=== PATIENT | female | born 1955 | race Caucasian/White ===

== ENCOUNTER 2024-02-02 16:51 | Emergency (ER) | payer MEDICARE, OTHER, SELFPAY ==
[2024-02-02] VITALS (12 sets, daily range): BP systolic 98–159; BP diastolic 68–134; PULSE 81–107; TEMP 36.7; O2SAT 96–100; BMI 39.9
--- NOTE | 2024-02-02 16:56 | ECG_ITS ---
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
--- NOTE | 2024-02-02 17:06 | ED_ITS ---
HPI HPI - General Adult General Chief complaint: Dizziness Stated complaint: Neck Pain with Dizziness Time Seen by Provider: 02/02/24 16:53 Source: patient Mode of arrival: ambulance History of Present Illness HPI narrative: Ed is a 68-year-old female presents to the ER with concerns of head injury. Patient reports that she is taking Coumadin with a history of A-fib, MAR Shows only daily aspirin. Patient had a episode of sepsis Preceding her stay at [facility] in [place] for rehab. Patient currently a transfer via [facility] states yesterday she was being transferred back into her bed when they struck he r head on the wooden headboard. Patient declined Tylenol for pain. States she has not felt right since with headache, dizziness described as room spinning when she looks to the left. She denies any recent illness. Patient notes that her neck is also sore. She denies any chest pain or shortness of breath. She is alert and oriented to person place and time and easily recognizes her who arrived at the bedside. Patient appears nontoxic in no acute distress. Has a Dasilva catheter and colostomy bag. she has no urinary complaints. Location: Reports head Radiation: Reports neck Severity: moderate Quality: Reports aching and dull; Denies burning Pain Consistency: Reports constant Relieving factors: Reports none Exacerbating factors: Reports none Treatments prior to arrival: Reports none Related Data Home Medications ?Medication ?Instructions ?Recorded ?Confirmed acetaminophen 500 mg capsule 1,000 mg PO Q6H PRN fever or pain 02/02/24 02/02/24 ascorbic acid (vitamin C) 500 mg 500 mg PO DAILY 02/02/24 02/02/24 chewable tablet (Acerola C) aspirin 81 mg tablet,delayed 81 mg PO DAILY 02/02/24 02/02/24 release (Adult Aspirin Regimen) atorvastatin 40 mg tablet 40 mg PO DAILY 02/02/24 02/02/24 bumetanide 2 mg tablet 2 mg PO DAILY 02/02/24 02/02/24 diltiazem HCl 180 mg 180 mg PO DAILY 02/02/24 02/02/24 capsule,extended release 24 hr (Cardizem CD) doxycycline hyclate 100 mg capsule 100 mg PO BID 02/02/24 02/02/24 ergocalciferol (vitamin D2) 1,250 50,000 unit PO DAILY 02/02/24 02/02/24 mcg (50,000 unit) capsule ferrous sulfate 325 mg (65 mg mg 02/02/24 iron) tablet (FeroSul) insulin aspart U-100 100 unit/mL 1 sliding scale dose subcut 02/02/24 02/02/24 (3 mL) subcutaneous pen (Novolog USEASDIRECTD FlexPen U-100 Insulin aspart) insulin glargine 100 unit/mL (3 10 unit subcut BID 02/02/24 02/02/24 mL) subcutaneous pen magnesium 200 mg tablet 400 mg PO DAILY 02/02/24 02/02/24 metoprolol tartrate 100 mg tablet 100 mg PO DAILY 02/02/24 02/02/24 (Lopressor) midodrine 5 mg tablet 5 mg PO TID 02/02/24 02/02/24 multivitamin (Daily Multi-Vitamin 1 tab PO DAILY 02/02/24 02/02/24 tablet) ondansetron HCl 4 mg tablet 4 mg PO Q6H PRN nausea and vomiting 02/02/24 02/02/24 oxycodone 5 mg tablet 5 mg PO Q6H PRN pain 02/02/24 02/02/24 pantoprazole 20 mg tablet,delayed 20 mg PO DAILY 02/02/24 02/02/24 release potassium chloride 20 mEq oral 20 meq PO DAILY 02/02/24 02/02/24 packet (Klor-Con) sertraline 50 mg tablet (Zoloft) 50 mg PO DAILY 02/02/24 02/02/24 tamsulosin 0.4 mg capsule (Flomax) 0.4 mg PO DAILY 02/02/24 02/02/24 zinc sulfate 50 mg zinc (220 mg) 50 mg PO DAILY 02/02/24 02/02/24 capsule Allergies Allergy/AdvReac Type Severity Reaction Status Date / Time oats AdvReac Unknown Verified 02/02/24 16:53 Opioid HPI Opioid Management Most Recent Opioid Data: No Data to Display Review of Systems ROS Constitutional Denies: fever or chills Eyes Denies: change in vision Ears, nose, mouth, and throat Reports: neck pain; Denies: throat pain, throat swelling, difficulty swallowing or hoarseness Cardiovascular Reports: edema and swelling of feet/ankles; Denies: chest pain or palpitations Respiratory Denies: shortness of breath or cough Gastrointestinal Reports: nausea; Denies: abdominal pain or vomiting Genitourinary Reports: other (+ dasilva catheter) Musculoskeletal Reports: neck pain and extremity swelling (4 + pitting edema, no blister or weeping); Denies: back pain Neurological Reports: headache; Denies: numbness in extremities, weakness in extremities, behavioral changes or slurred speech Exam Narrative Exam Narrative: Nurses notes and vital signs reviewed and patient is not hypoxic. General: The patient appears well and in no apparent distress. Patient is resting comfortably on cart. Skin: Warm, dry, no pallor noted.Remote skin bruises bilateral forearms. Head: Normocephalic, atraumatic No visible signs of trauma or bruising. Neck: Supple, trachea mid-line, no tenderness Anterior neck, no lymphadenopathy, Mild paravertebral cervical soreness on palpation, no midline bony tenderness. Eye: Pupils are equal, round and reactive to light, EOMI, No vertical nystagmus Mild subconjunctival pallor. Ears, Nose, Mouth, and Throat: TM are clear, normal light reflex, oral mucosa is moist, no posterior oropharynx erythema or hypertrophy, uvula is mid-line Cardiovascular: Regular Rate and Rhythm Respiratory: Patient is in no distress, no accessory muscle use, lungs are clear to auscultation, no wheezing, rales or rhonchi. Chest Wall: no tenderness Back: non-tender, no CVA tenderness, Known decubitus ulcer of the sacral region , not examined. Musculoskeletal: normal ROM, no tenderness, Chronic appearing 4+ edema lower legs. GI: Normal bowel sounds, no tenderness to palpation, no masses appreciated. Colostomy bag with good output brown stool noted. No rebound, guarding, or rigidity noted. Neurological: A&O x4No focal neurological deficit, patient unable to ambulate which is why she is at skilled facility, she has good coordination bilateral hands equal gluer and slicer hand strength with assisting on sitting forward.For examination. Psychiatric: Cooperative Constitutional Vital Signs, click to edit/add: Last Vital Signs Temp 98.1 F 02/02/24 16:53 Pulse 92 H 02/02/24 17:38 Resp 18 02/02/24 17:00 BP 107/77 02/02/24 17:00 Pulse Ox 98 02/02/24 17:00 Course Vital Signs Vital signs: Vital Signs Temperature 98.1 F 02/02/24 16:53 Pulse Rate 90 02/02/24 16:53 Respiratory Rate 22 H 02/02/24 16:53 Blood Pressure 103/74 02/02/24 16:53 Pulse Oximetry 100 02/02/24 16:53 Temperature 98.1 F 02/02/24 16:53 Pulse Rate 92 H 02/02/24 17:38 Respiratory Rate 18 02/02/24 17:00 Blood Pressure 107/77 02/02/24 17:00 Pulse Oximetry 98 02/02/24 17:00 Medical Decision Making MDM Narrative Medical decision making narrative: Patient reports blood thinner use, states significant head injury yesterday being transferred from [facility] to her bed striking her head on a wooden headboard. No loss of consciousness but patient states she has not felt right since. Mild nausea, Dizziness that comes and goes. Patient ate lunch today and chips for snack.Dasilva catheter draining clear yellow urine, she is agreeable to CT head and cervical spine given complaints. Cervical spine studies without evidence of fracture, CT of the head without evidence of acute intracranial process, patient noted to have nodule on her parotid and the report copies will be sent with her back to the shelter for further evaluation by PCP. Her laboratory studies appear baseline as I requested records from the shelter facility compared to January 28 and January 21. The patient appears in no distress, and may be having slight postconcussive symptoms.She will need to continue her rehab treatments at the shelter facility. pt given dose of valium for dizziness and muscle spasm in neck, recommend house physician decide if she needs ongoing rx. The patient is to followup with primary care physician in next 1-3 days or to return to the emergency department should any of the signs or symptoms worsen or new symptoms develop. Patient had questions answered. The patient agrees with the following Diagnosis and Treatment plan and the patient will be discharged back to [facility] Medical Records Medical records reviewed: Yes I reviewed the patient's medical records Medical records narrative: Reviewed laboratory studies from 10/23 noting a hemoglobin of 9.1, labs from 01/21 hemoglobin of 8.2. Her platelets have fluctuated between 99 and 129. Creatinine 1.5. Lab Data Lab results reviewed: Yes I reviewed the patient's lab results Labs: Lab Results 02/02/24 Range/Units 17:23 WBC 11.4 H (4.0-11.0) 10^3/uL RBC 2.94 L (4.20-5.40) 10^6/uL Hgb 8.7 L (12.0-16.0) g/dL Hct 27.0 L (36.0-48.0) % MCV 91.8 (81.0-99.0) fL MCH 29.6 (26.7-34.0) pg MCHC 32.2 (29.9-35.2) g/dL RDW 15.4 H (11.0-15.0) % Plt Count 162 (150-450) 10^3/uL MPV 11.1 (9.5-13.5) fL Neut % (Auto) 69.7 (43.0-75.0) % Lymph % (Auto) 19.6 L (20.5-60.0) % Keith % (Auto) 8.2 (1.7-12.0) % Eos % (Auto) 1.6 (0.9-7.0) % Baso % (Auto) 0.4 (0.2-2.0) % Neut # (Auto) 7.9 H (1.4-6.5) 10^3/uL Lymph # (Auto) 2.2 (1.2-3.8) 10^3/uL Keith # (Auto) 0.9 H (0.3-0.8) 10^3/uL Eos # (Auto) 0.2 (0.0-0.7) 10^3/uL Baso # (Auto) 0.0 (0.0-0.1) 10^3/uL Abs Immat Gran (auto) 0.06 H (0.00-0.03) 10^3/uL Imm/Tot Granulo (auto) 0.5 (0.0-0.5) % PT 11.5 (9.0-11.6) sec INR 1.09 APTT 24.3 (22.3-36.2) sec Sodium 139 (136-145) mmol/L Potassium 4.5 (3.5-5.1) mmol/L Chloride 102 (98-107) mmol/L Carbon Dioxide 29.3 (21.0-32.0) mmol/L Anion Gap 12.2 BUN 18.0 (7.0-18.0) mg/dL Creatinine 1.53 H (0.55-1.02) mg/dL Est GFR ( Amer) 41 L (>=60) Est GFR (Non-Af Amer) 34 L (>=60) BUN/Creatinine Ratio 11.8 Glucose 91 (74-106) mg/dL Calcium 8.3 L (8.5-10.1) mg/dL Total Bilirubin 0.5 (0.2-1.0) mg/dL AST 28 (15-37) U/L ALT 14 (14-59) U/L Alkaline Phosphatase 146 H (46-116) U/L Troponin I High Sens 20.2 (4.0-51.3) pg/mL Total Protein 6.2 L (6.4-8.2) g/dL Albumin 2.1 L (3.4-5.0) g/dL Globulin 4.1 g/dL Albumin/Globulin Ratio 0.[address] scan - head: Radiologist's impression: ITS Impressions Cervical Spine CT 02/02/24 17:06 IMPRESSION: No acute traumatic findings of the cervical spine. Bilateral parotid nodules, largest on the left measuring 1.5 cm. Clinical follow-up with consideration for ultrasound recommended. Electronically authenticated by: ROMY DAVILA Date: 02/02/2024 18:[address] 02/02/24 17:06 IMPRESSION: 1. Chronic small vessel ischemic change. 2. Otherwise, no CT evidence for acute pathology. 3. If patient continues to have symptoms or if there remains any further clinical concern, MRI may help better delineate. Electronically authenticated by: LOUISA CHAU Date: 02/02/2024 18:23 ECG Data Attestation: I personally reviewed and interpreted this ECG as follows: Interpretation: EKG interpretation: Emergency Department physician interpretation,Atrial fibrillation, 93 bpm, no ectopy, no ST segment elevation, normal axis. Discharge Plan Discharge Stand Alone Forms: Portal Instructions Chief Complaint: Dizziness Clinical Impression: Closed head injury, Post concussion syndrome, Neck pain Patient Disposition: Home, Self-Care Time of Disposition Decision: 18:34 Condition: Good Mode of Transportation: EMS Prescriptions / Home Meds: No Action acetaminophen 500 mg capsule 1,000 mg PO Q6H PRN (Reason: fever or pain) ascorbic acid (vitamin C) [Acerola C] 500 mg tablet,chewable 500 mg PO DAILY aspirin [Adult Aspirin Regimen] 81 mg tablet,delayed release (DR/EC) 81 mg PO DAILY atorvastatin 40 mg tablet 40 mg PO DAILY bumetanide 2 mg tablet 2 mg PO DAILY diltiazem HCl [Cardizem CD] 180 mg capsule,extended release 24hr 180 mg PO DAILY doxycycline hyclate 100 mg capsule 100 mg PO BID ergocalciferol (vitamin D2) 1,250 mcg (50,000 unit) capsule 50,000 unit PO DAILY ferrous sulfate [FeroSul] 325 mg (65 mg iron) tablet insulin glargine 100 unit/mL (3 mL) insulin pen 10 unit subcut BID magnesium 200 mg tablet 400 mg PO DAILY metoprolol tartrate [Lopressor] 100 mg tablet 100 mg PO DAILY midodrine 5 mg tablet 5 mg PO TID Rx Instructions: do not give last dose of day after 6PM or within 4 hrs of bedtime multivitamin [Daily Multi-Vitamin] Tablet 1 tab PO DAILY insulin aspart U-100 [Novolog FlexPen U-100 Insulin] 100 unit/mL (3 mL) insulin pen 1 sliding scale dose subcut USEASDIRECTD oxycodone 5 mg tablet 5 mg PO Q6H PRN (Reason: pain) Patient Comments: 1 tablet for pain 4-04/08 2 tablets for pain 8-10 pantoprazole 20 mg tablet,delayed release (DR/EC) 20 mg PO DAILY potassium chloride [Klor-Con] 20 mEq packet 20 meq PO DAILY sertraline [Zoloft] 50 mg tablet 50 mg PO DAILY tamsulosin [Flomax] 0.4 mg capsule 0.4 mg PO DAILY zinc sulfate 50 mg zinc (220 mg) capsule 50 mg PO DAILY ondansetron HCl 4 mg tablet 4 mg PO Q6H PRN (Reason: nausea and vomiting) Print Language: Ukrainian Instructions: Head Injury (ED), Post Concussion Syndrome (ED), Neck Pain (ED) Additional Instructions: Please follow up with your house physician at [facility]. Referrals: Physician,Non-Staff, MD [Primary Care Provider] - 1 week
--- NOTE | 2024-02-02 17:06 | CT_ITS ---
The [address] [address] Patient Name: HARRIS CASTREJON MRN: [id number] date: 1955 Sex: F Assigned Patient Location: ER Current Patient Location: .[facility] Accession/Order Number: [id number] Exam Date: 02/02/2024 17:27 Report Date: 02/02/2024 18:23 At the request of: PUMA MOORE Procedure: CT head/brain wo con NONCONTRAST CT SCAN OF THE HEAD HISTORY: Headache. TECHNIQUE: Multiple axial images are taken from the level the vertex down to the base of the skull without the use of IV contrast. Images were then reconstructed in the sagittal and coronal planes. This exam was performed according to our departmental dose-optimization program which includes use of Automated Exposure Control, adjustment of the mA and/or kV according to patient size and/or use of iterative reconstruction technique. COMPARISON: None. FINDINGS: Brain Parenchyma: There is global, diffuse atrophy with periventricular decreased white matter attenuation. No intracranial mass. No intracranial hemorrhage. Posterior fossa: Normal. Midline shift: None Extra-axial fluid collection: None Ventricles: Normal. Mastoid air cells: Normal. Sinuses: Normal. Cranium: No depressed skull fracture. Soft tissues: Normal. Orbits: Normal. CT/CT head/brain wo con IMPRESSION: 1. Chronic small vessel ischemic change. 2. Otherwise, no CT evidence for acute pathology. 3. If patient continues to have symptoms or if there remains any further clinical concern, MRI may help better delineate. Electronically authenticated by: LOUISA CHAU Date: 02/02/2024 18:23
--- NOTE | 2024-02-02 17:06 | CT_ITS ---
The [address] [address] Patient Name: HARRIS CASTREJON MRN: [id number] date: 1955 Sex: F Assigned Patient Location: ER Current Patient Location: ED.[facility] Accession/Order Number: [id number] Exam Date: 02/02/2024 17:27 Report Date: 02/02/2024 18:23 At the request of: PUMA MOORE Procedure: CT cervical spine wo con EXAM: CT cervical spine wo con HISTORY: neck pain COMPARISON: None. TECHNIQUE: CT cervical spine without contrast. Multiplanar reformats obtained. The current study utilizes one or more of the following dose-reduction techniques: automated exposure control, iterative reconstruction, and/or manual adjustment of tube current and voltage for size. FINDINGS: Artifact limits evaluation of the mid to lower cervical spine. Age expected degenerative changes. No evidence of acute fracture or traumatic malalignment. No prevertebral edema. Spinal canal grossly patent. Bilateral parotid nodules, largest in the left measuring 1.[address]/CT cervical spine wo con IMPRESSION: No acute traumatic findings of the cervical spine. Bilateral parotid nodules, largest on the left measuring 1.5 cm. Clinical follow-up with consideration for ultrasound recommended. Electronically authenticated by: ROMY DAVILA Date: 02/02/2024 18:23
--- NOTE | 2024-02-02 17:13 | PC.NURSE ---
Patient reports during transfer with [facility] the top of her head was hit on headboard of bed. Complains of neck pain and dizziness.
[2024-02-02] MEDS: ACETAMINOPHEN 500 MG TABLET 1000 MG PO (17:18)
[2024-02-02] MEDS: MECLIZINE HCL 12.5 MG TABLET 25 MG PO (17:18)
[2024-02-02] MEDS: ONDANSETRON 4 MG RAPDIS TABLET SL (17:19)
[2024-02-02 17:29] LABS: Basophils Percent Auto 0.4 % (0.2-2.0); Eosinophils Absolute Auto 0.2 10^3/uL (0.0-0.7); Eosinophils Percent Auto 1.6 % (0.9-7.0); Hemoglobin 8.7 g/dL (12.0-16.0); Immature Granulocytes Abs Auto 0.06 10^3/uL (0.00-0.03); Immature Granulocytes Pct Auto 0.5 % (0.0-0.5); Lymphocytes Absolute Auto 2.2 10^3/uL (1.2-3.8); Lymphocytes Percent Auto 19.6 % (20.5-60.0); Mean Corpuscular HGB Conc 32.2 g/dL (29.9-35.2); Mean Corpuscular Hemoglobin 29.6 pg (26.7-34.0); Mean Corpuscular Volume 91.8 fL (81.0-99.0); Mean Platelet Volume 11.1 fL (9.5-13.5); Monocytes Absolute Auto 0.9 10^3/uL (0.3-0.8); Monocytes Percent Auto 8.2 % (1.7-12.0); Neutrophils Absolute Auto 7.9 10^3/uL (1.4-6.5); Neutrophils Percent Auto 69.7 % (43.0-75.0); Platelet Count 162 10^3/uL (150-450); Red Blood Count 2.94 10^6/uL (4.20-5.40); Red Cell Distribution Width 15.4 % (11.0-15.0); White Blood Count 11.4 10^3/uL (4.0-11.0)
[2024-02-02 17:43] LABS: Alanine Aminotransferase 14 U/L (14-59); Albumin Globulin Ratio 0.5; Albumin Level 2.1 g/dL (3.4-5.0); Alkaline Phosphatase 146 U/L (46-116); Anion Gap 12.2; Aspartate Amino Transferase 28 U/L (15-37); BUN Creatinine Ratio 11.8; Bilirubin Total 0.5 mg/dL (0.2-1.0); Calcium 8.3 mg/dL (8.5-10.1); Carbon Dioxide 29.3 mmol/L (21.0-32.0); Chloride 102 mmol/L (98-107); Estimated GFR (African America 41 (>=60); Estimated GFR (Non-African Ame 34 (>=60); Globulin 4.1 g/dL; Glucose 91 mg/dL (74-106); Potassium 4.5 mmol/L (3.5-5.1); Sodium 139 mmol/L (136-145); Total Protein 6.2 g/dL (6.4-8.2)
[2024-02-02 17:44] LABS: INR 1.09; Partial Thromboplastin Time 24.3 sec (22.3-36.2); Prothrombin Time 11.5 sec (9.0-11.6)
[2024-02-02 17:46] LABS: Troponin I High Sensitivity 20.2 pg/mL (4.0-51.3)
[2024-02-02] MEDS: DIAZEPAM 5 MG TABLET PO (19:07)
--- NOTE | 2024-02-02 20:23 | PC.NURSE ---
Report called to nurse Lowry at [facility], facility aware of ETA for transport.
== END 2024-02-02 21:40 | disposition home or self-care (01) ==
PROVIDERS: Personal Emergency Response Attendant; Emergency Provider Emergency Medicine
DX: S09.8XXA Other specified injuries of head, initial encounter (principal); M54.2 Cervicalgia; F07.81 Postconcussional syndrome; W22.8XXA Striking against or struck by other objects, initial encounter; I48.91 Unspecified atrial fibrillation; Z93.3 Colostomy status; Z96.0 Presence of urogenital implants; Z79.899 Other long term (current) drug therapy; Z79.82 Long term (current) use of aspirin; Z79.4 Long term (current) use of insulin; Z79.01 Long term (current) use of anticoagulants
CPT/HCPCS: 36415; 70450; 72125; 80053; 84484; 85025; 85610; 85730; 93005; 99285

== ENCOUNTER 2024-02-04 07:02 | Inpatient (IN) | payer MEDICARE, OTHER, SELFPAY ==
[2024-02-04] VITALS (20 sets, daily range): BP systolic 100–124; BP diastolic 53–85; PULSE 103–142; TEMP 36.6–36.8; O2SAT 96–100; BMI 39.9; BMI 38.9
[2024-02-04] MEDS: LIDOCAINE 2% JELLY 10 ML UR (07:24)
[2024-02-04 08:04] LABS: Alanine Aminotransferase 15 U/L (14-59); Albumin Globulin Ratio 0.5; Albumin Level 2.1 g/dL (3.4-5.0); Alkaline Phosphatase 167 U/L (46-116); Anion Gap 12.7; Aspartate Amino Transferase 20 U/L (15-37); BUN Creatinine Ratio 11.8; Bilirubin Total 0.5 mg/dL (0.2-1.0); Calcium 8.1 mg/dL (8.5-10.1); Chloride 104 mmol/L (98-107); Estimated GFR (African America 39 (>=60); Estimated GFR (Non-African Ame 32 (>=60); Glucose 95 mg/dL (74-106); Potassium 3.7 mmol/L (3.5-5.1); Sodium 141 mmol/L (136-145); Total Protein 6.1 g/dL (6.4-8.2)
[2024-02-04 08:07] LABS: Basophils Absolute Auto 0.1 10^3/uL (0.0-0.1); Basophils Percent Auto 0.5 % (0.2-2.0); Eosinophils Absolute Auto 0.2 10^3/uL (0.0-0.7); Eosinophils Percent Auto 2.2 % (0.9-7.0); Hematocrit 27.6 % (36.0-48.0); Hemoglobin 8.5 g/dL (12.0-16.0); Immature Granulocytes Abs Auto 0.03 10^3/uL (0.00-0.03); Immature Granulocytes Pct Auto 0.3 % (0.0-0.5); Lymphocytes Absolute Auto 2.1 10^3/uL (1.2-3.8); Lymphocytes Percent Auto 19.8 % (20.5-60.0); Mean Corpuscular HGB Conc 30.8 g/dL (29.9-35.2); Mean Corpuscular Volume 94.2 fL (81.0-99.0); Mean Platelet Volume 10.6 fL (9.5-13.5); Monocytes Absolute Auto 1.1 10^3/uL (0.3-0.8); Monocytes Percent Auto 10.4 % (1.7-12.0); Neutrophils Absolute Auto 6.9 10^3/uL (1.4-6.5); Neutrophils Percent Auto 66.8 % (43.0-75.0); Platelet Count 144 10^3/uL (150-450); Red Blood Count 2.93 10^6/uL (4.20-5.40); Red Cell Distribution Width 15.6 % (11.0-15.0); White Blood Count 10.4 10^3/uL (4.0-11.0)
[2024-02-04 08:13] LABS: INR 1.06; Prothrombin Time 11.2 sec (9.0-11.6)
--- NOTE | 2024-02-04 08:34 | ED.FEMALEGU1 ---
HPI - Female Genitourinary General Chief complaint: Urogenital-Female Stated complaint: POSSIBLE VAGINAL/RECTAL BLEEDING Time Seen by Provider: 02/04/24 07:08 Source: patient Mode of arrival: ambulance Limitations: no limitations History of Present Illness HPI Narrative: The patient is [facility] with a history of decubital ulcer and colostomy , patient also have a history of hypertension diabetes , patient have history of taking Coumadin but she stopped taking it a while ago from the history it seems that the patient have a GI bleed history, the patient is coming to the ER after they noticed there is a bleeding in her perineal area with a trying to place the catheter in the [facility] facility, it was noted the patient have no abdominal pain nausea vomiting or any other complaints, she is supposed to have a Puga catheter chronically because of ambulation difficulty in addition to the sacral ulcer. The patient denies any dizziness abdominal pain nausea vomiting Related Data Home Medications ?Medication ?Instructions ?Recorded ?Confirmed acetaminophen 500 mg capsule 1,000 mg PO Q6H PRN fever or pain 02/02/24 02/04/24 ascorbic acid (vitamin C) 500 mg 500 mg PO DAILY 02/02/24 02/04/24 chewable tablet (Acerola C) aspirin 81 mg tablet,delayed 81 mg PO DAILY 02/02/24 02/04/24 release (Adult Aspirin Regimen) atorvastatin 40 mg tablet 40 mg PO DAILY 02/02/24 02/04/24 bumetanide 2 mg tablet 2 mg PO DAILY 02/02/24 02/04/24 diltiazem HCl 180 mg 180 mg PO DAILY 02/02/24 02/04/24 capsule,extended release 24 hr (Cardizem CD) doxycycline hyclate 100 mg capsule 100 mg PO BID 02/02/24 02/04/24 ergocalciferol (vitamin D2) 1,250 50,000 unit PO DAILY 02/02/24 02/04/24 mcg (50,000 unit) capsule ferrous sulfate 325 mg (65 mg 325 mg PO DAILY 02/02/24 02/04/24 iron) tablet (FeroSul) insulin aspart U-100 100 unit/mL 1 sliding scale dose subcut 02/02/24 02/04/24 (3 mL) subcutaneous pen (Novolog USEASDIRECTD FlexPen U-100 Insulin aspart) insulin glargine 100 unit/mL (3 10 unit subcut BID 02/02/24 02/04/24 mL) subcutaneous pen magnesium 200 mg tablet 400 mg PO DAILY 02/02/24 02/04/24 metoprolol tartrate 100 mg tablet 100 mg PO DAILY 02/02/24 02/04/24 (Lopressor) midodrine 5 mg tablet 5 mg PO TID 02/02/24 02/04/24 multivitamin (Daily Multi-Vitamin 1 tab PO DAILY 02/02/24 02/04/24 tablet) ondansetron HCl 4 mg tablet 4 mg PO Q6H PRN nausea and vomiting 02/02/24 02/04/24 oxycodone 5 mg tablet 5 mg PO Q6H PRN pain 02/02/24 02/04/24 pantoprazole 20 mg tablet,delayed 20 mg PO DAILY 02/02/24 02/04/24 release potassium chloride 20 mEq oral 20 meq PO DAILY 02/02/24 02/04/24 packet (Klor-Con) sertraline 50 mg tablet (Zoloft) 50 mg PO DAILY 02/02/24 02/04/24 tamsulosin 0.4 mg capsule (Flomax) 0.4 mg PO DAILY 02/02/24 02/04/24 zinc sulfate 50 mg zinc (220 mg) 50 mg PO DAILY 02/02/24 02/04/24 capsule Allergies Allergy/AdvReac Type Severity Reaction Status Date / Time oats AdvReac Unknown Verified 02/02/24 16:53 Review of Systems ROS Status of ROS 10 or more systems reviewed and unremarkable except as noted in history and below Exam Narrative Exam Narrative: Nurses notes and vital signs reviewed and patient is not hypoxic. General: Well-appearing and in no apparent distress. Skin: Warm, dry, no pallor noted. No rash. Head: Normocephalic, atraumatic. Neck: Supple, non-tender. Eye: Pupils are equal, round and EOMI. No scleral icterus. Ears, Nose, Mouth, and Throat: TM are clear, no nasal mucosal hypertrophy. Oral mucosa is moist, no posterior oropharynx erythema, uvula is mid-line Cardiovascular: Regular Rate and Rhythm without murmur, gallop or rub. Respiratory: No accessory muscle use or respiratory distress. Lungs are clear to auscultation, no wheezing, rales or rhonchi Chest Wall: no tenderness Back: No midline thoracic or lumbar vertebral tenderness. No CVA tenderness Musculoskeletal: normal ROM, no calf or popliteal tenderness, no lower extremity edema/swelling GI: Abdomen is soft, non-distended. Normal bowel sounds. The patient have no tenderness upon palpation and she does have a colostomy bag in the left lower quadrant of the abdomen showing no abnormalities of infection or any tenderness surrounding the colostomy area. Vaginal examination shows that the patient have 2 spots of bleeding just at the periurethral area, but the patient also had a bleeding down toward the rectal area that was noticed Neurological: A&O x4. No cranial nerve dysfunction observed. No truncal ataxia. Moves all extremities. Sensation intact. Psychiatric: Cooperative and interactive. Normal mood and affect. Sacral area evaluation showed that the patient have a large ulcer mostly stage 3-4 and it is almost around 14 cm x 12 Constitutional Vital Signs, click to edit/add: Last Vital Signs Temp 98.1 F 02/04/24 07:07 Pulse 103 H 02/04/24 07:07 Resp 16 02/04/24 07:07 BP 105/63 02/04/24 10:59 Pulse Ox 100 02/04/24 11:00 O2 Del Method Room Air 02/04/24 08:01 Course Vital Signs Vital signs: Vital Signs Temperature 98.1 F 02/04/24 07:07 Pulse Rate 103 H 02/04/24 07:07 Respiratory Rate 16 02/04/24 07:07 Blood Pressure 108/69 02/04/24 07:07 Pulse Oximetry 100 02/04/24 07:07 Oxygen Delivery Method Room Air 02/04/24 07:07 Temperature 98.1 F 02/04/24 07:07 Pulse Rate 103 H 02/04/24 07:07 Respiratory Rate 16 02/04/24 07:07 Blood Pressure 105/63 02/04/24 10:59 Pulse Oximetry 100 02/04/24 11:00 Oxygen Delivery Method Room Air 02/04/24 08:01 MDM - Female Genitourinary MDM Narrative Medical decision making narrative: After cleaning the area thoroughly and placing the catheter monitoring the patient after an hour the patient had still rectal bleeding no more bleeding from the periurethral area. 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 This mild bleeding from the rectal area is mostly secondary to the rectal mass It is noted that the patient is not taking any Coumadin or any anticoagulation The workup from [facility] discussed with who presented at the bedside the patient need further evaluation and staging specially that the last evaluation was in December 27 and she has not seen any oncologist since then. Will obtain CAT scan without contrast and the patient case was discussed with Dr. Cameron . Patient will be admitted for further evaluation Lab Data Labs: Lab Results 02/04/24 Range/Units 07:36 WBC 10.4 (4.0-11.0) 10^3/uL RBC 2.93 L (4.20-5.40) 10^6/uL Hgb 8.5 L (12.0-16.0) g/dL Hct 27.6 L (36.0-48.0) % MCV 94.2 (81.0-99.0) fL MCH 29.0 (26.7-34.0) pg MCHC 30.8 (29.9-35.2) g/dL RDW 15.6 H (11.0-15.0) % Plt Count 144 L (150-450) 10^3/uL MPV 10.6 (9.5-13.5) fL Neut % (Auto) 66.8 (43.0-75.0) % Lymph % (Auto) 19.8 L (20.5-60.0) % [place] % (Auto) 10.4 (1.7-12.0) % Eos % (Auto) 2.2 (0.9-7.0) % Baso % (Auto) 0.5 (0.2-2.0) % Neut # (Auto) 6.9 H (1.4-6.5) 10^3/uL Lymph # (Auto) 2.1 (1.2-3.8) 10^3/uL [place] # (Auto) 1.1 H (0.3-0.8) 10^3/uL Eos # (Auto) 0.2 (0.0-0.7) 10^3/uL Baso # (Auto) 0.1 (0.0-0.1) 10^3/uL Abs Immat Gran (auto) 0.03 (0.00-0.03) 10^3/uL Imm/Tot Granulo (auto) 0.3 (0.0-0.5) % PT 11.2 (9.0-11.6) sec INR 1.06 Sodium 141 (136-145) mmol/L Potassium 3.7 (3.5-5.1) mmol/L Chloride 104 (98-107) mmol/L Carbon Dioxide 28.0 (21.0-32.0) mmol/L Anion Gap 12.7 BUN 19.0 H (7.0-18.0) mg/dL Creatinine 1.61 H (0.55-1.02) mg/dL Est GFR ( Amer) 39 L (>=60) Est GFR (Non-Af Amer) 32 L (>=60) BUN/Creatinine Ratio 11.8 Glucose 95 (74-106) mg/dL Calcium 8.1 L (8.5-10.1) mg/dL Iron 39.0 L (50.0-170.0) ug/dL TIBC 209.0 L (250.0-450.0) ug/dL % Saturation 18.7 % Ferritin 90.0 (8.0-252.0) ng/mL Total Bilirubin 0.5 (0.2-1.0) mg/dL AST 20 (15-37) U/L ALT 15 (14-59) U/L Alkaline Phosphatase 167 H (46-116) U/L Total Protein 6.1 L (6.4-8.2) g/dL Albumin 2.1 L (3.4-5.0) g/dL Globulin 4.0 g/dL Albumin/Globulin Ratio 0.5 Discharge Plan Discharge Chief Complaint: Urogenital-Female Clinical Impression: Adenocarcinoma of rectum, Rectal bleed Patient Disposition: Admitted As Inpatient Time of Disposition Decision: 14:25
[2024-02-04 10:25] LABS: Percent Iron Saturation 18.7 %
--- NOTE | 2024-02-04 14:05 | CT_ITS ---
[address] [address] Patient Name: HARRIS CASTREJON MRN: [id number] date: 1955 Sex: F Assigned Patient Location: ED.MAIN Current Patient Location: ED.MAIN Accession/Order Number: [id number] Exam Date: 02/04/2024 14:15 Report Date: 02/04/2024 14:57 At the request of: ANNEL YOUSIF Procedure: CT abdomen pelvis wo con EXAMINATION: CT abdomen pelvis wo con HISTORY: rectal mass COMPARISON: No relevant comparison available. TECHNIQUE: Axial, Coronal, and Sagittal images were obtained without and/or with IV contrast as indicated by examination type. Dose reduction techniques were achieved by using automated exposure control and/or adjustment of mA and/or kV according to patient size and/or use of iterative reconstruction technique. FINDINGS: LUNG BASES: Trace amount of pleural fluid bilaterally and mild atelectasis within dependent lung bases. Mild cardiomegaly and trace amount of pericardial fluid. LIVER: No enlargement, atrophy, suspicious density, or significant focal lesion. BILIARY: Several small stones within gallbladder. PANCREAS: No lesion, fluid collection, or abnormal duct dilatation. SPLEEN: No enlargement or focal lesion. ADRENALS: No mass or enlargement. KIDNEYS: No mass, obstruction, or calcification. BOWEL/MESENTERY: Lower left anterior abdominal wall diverting colostomy via the proximal sigmoid colon. Distal bowel/consisted of rectum and distal sigmoid colon which appears to contain dense stool. Wall thickening versus lack of distention involving rectum. AORTA/VASCULAR: Marked atherosclerotic disease of aorta and branches. No aneurysm. RETROPERITONEUM: No mass or adenopathy. LYMPH NODES: No adenopathy. URINARY BLADDER: Puga catheter within nondistended urinary bladder. No visible focal wall thickening, lesion, or calculus. PELVIC ORGANS: No visible mass. Pelvic organs appropriate for patient age. ABDOMINAL WALL: No mass or hernia. BONES: Degenerative disc disease with prominent posterior disc osteophyte complex causing central canal and foraminal narrowing at most lumbar levels. No bony lesion or fracture. OTHER: Negative. CT/CT abdomen pelvis wo con IMPRESSION: 1. Suspect wall thickening of rectum, but no definable mass. 2. Lower left anterior abdominal wall colostomy; no bowel obstruction or herniation. 3. Grossly unremarkable uterus and urinary bladder. 4. Cholelithiasis. 5. Tiny bilateral pleural effusions and trace amount of pericardial fluid; nonspecific. Electronically authenticated by: REGINALD MATTHEWS Date: 02/04/2024 14:57
[2024-02-04 15:12] LABS: Hematocrit 26.6 % (36.0-48.0); Hemoglobin 8.4 g/dL (12.0-16.0)
--- NOTE | 2024-02-04 15:49 | P.HP_ITS ---
<Statement entered by Shaikh Nisha MD - 02/05/24 11:07> This documentation has been reviewed and approved. Seen and examined. Case discussed with RN, ED provider and Sol. Agree with documentation, clinical decision Patient presented with rectal bleeding. Active blood noted oozing from rectal region. She has chronic sacral ulcer with tunneling too but does not look infected. Recent admission at OSH for ischemic bowel s/p colectomy and has colostomy in place. Recent diagnosis of rectal adenocarcinoma but no oncology work up done. Consult General surgery for rectal bleeding. Will consult oncology for their recs on oncology work up. HPI H&P: HPI History of Present Illness Chief complaint: Rectal Mass, Rectal Bleeding Narrative: 02/04/24 3488 This is a 68-year-old female patient with a complicated past medical history as outlined below including muscle wasting and atrophy, urinary incontinence w/ chronic indwelling Puga, HFrEF w/ LVEF 40-45% on 2D Echo 11/07/23, DM2, non- healing coccyx wound, among others; who presented to the ED from a local SNF d/t onset of perineal bleeding. SNF staff was attempting to remove and replace her chronically indwelling Puga catheter when they noted what they thought was vaginal bleeding and were unable to place the catheter at that time. She was sent to the ED for further evaluation. Patient is no longer taking anticoagulants for her A-fib due to history of prior GI bleeding. She has a known rectal mass that is adenocarcinoma but the patient has not been following with oncology since her biopsy at the end of October. Workup in the ED revealed stable anemia (8.5) mild BRANDEE (BUN 19, CR 1.6, GFR 32), and iron deficiency (iron 39, TIBC 209). Dr. Arizmendi, oncologist, was consulted in the ED and he assessed the patient. Since the patient has not been following with oncology, he notes that the patient needs to be reassessed and a plan of care established. A CT of the abdomen and pelvis without contrast (d/t BRANDEE) was obtained to reevaluate the patient's rectal mass. This revealed a thickened rectum but no obvious mass structure. At the time of my exam the patient is resting comfortably in bed. Nursing has turned the patient and she has a large open coccyx wound that is reportedly impr oving over the last few weeks. She has been [facility] where she was discharged after her most recent admission to [facility] for septic shock from her coccyx wound (12/21 to 12/29/2023). Moderate rectal bleeding is noted during exam. She is being admitted as an inpatient by the hospitalist service for GI bleeding, mild BRANDEE and rectal cancer/oncology work up. Opioid HPI Opioid Management Most Recent Opioid Data: Last ORT Total Score 1 02/04/24 15:56 Last ORT Risk Category Low Risk 02/04/24 15:56 Review of Systems ROS Status of ROS 10 or more systems reviewed and unremark able except as noted in history and below [facility] Medical History (Updated 02/04/24 @ 17:08 by Sol Hayes NP) Adenocarcinoma of rectum ?C20 - Malignant neoplasm of rectum (ICD-10) GERD (gastroesophageal reflux disease) ?K21.9 - Gastro-esophageal reflux disease without esophagitis (ICD-10) CHF (congestive heart failure) ?I50.9 - Heart failure, unspecified (ICD-10) Depression ?F32.A - Depression, unspecified (ICD-10) Closed head injury ?S09.90XA - Unspecified injury of head, initial encounter (ICD-10) Post concussion syndrome ?F07.81 - Postconcussional syndrome (ICD-10) Neck pain ?M54.2 - Cervicalgia (ICD-10) Osteomyelitis of vertebra, sacral and sacrococcygeal region ?M46.28 - Osteomyelitis of vertebra, sacral and sacrococcygeal region (ICD- 10) GI hemorrhage ?K92.2 - Gastrointestinal hemorrhage, unspecified (ICD-10) Pressure ulcer, sacrum ?L89.159 - Pressure ulcer of sacral region, unspecified stage (ICD-10) Chronic a-fib ?I48.20 - Chronic atrial fibrillation, unspecified (ICD-10) CKD (chronic kidney disease) stage 3, GFR 30-59 ml/min ?N18.30 - Chronic kidney disease, stage 3 unspecified (ICD-10) DM2 (diabetes mellitus, type 2) ?E11.9 - Type 2 diabetes mellitus without complications (ICD-10) Hyperlipidemia ?E78.5 - Hyperlipidemia, unspecified (ICD-10) Essential hypertension ?I10 - Essential (primary) hypertension (ICD-10) HFrEF (heart failure with reduced ejection fraction) ?I50.20 - Unspecified systolic (congestive) heart failure (ICD-10) MDD (major depressive disorder) ?F32.9 - Major depressive disorder, single episode, unspecified (ICD-10) Muscle wasting and atrophy, not elsewhere classified, multiple sites ?M62.59 - Muscle wasting and atrophy, not elsewhere classified, multiple sites (ICD-10) Surgical History (Updated 02/04/24 @ 16:50 by Bhavani Medrano) Colostomy in place ?Z93.3 - Colostomy status (ICD-10) Family History (Updated 02/04/24 @ 15:51 by Bhavani Medrano) Father Family history of myocardial infarction Family history of hypertension Mother Family history of CHF (congestive heart failure) Family history of cancer Family history of hypertension Grandmother Family history of diabetes mellitus Family history of hypertension Social History (Updated 02/04/24 @ 15:50 by Bhavani Medrano) Within the past year, how often did you have a drink containing alcohol: never Within the past year, how often did you have six or more drinks on one occasion: never Score interpretation: A score less than 3 is consistent with normal alcohol consumption. Smoking status: Former smoker Non-prescribed substance use: denies use Previous occupational history: retired Highest level of school completed/degree received: high school graduate Are you now , , , , never or living with a partner: In a typical week, how many times do you talk on the telephone with family, friends, or neighbors: 3 or more times per week How often do you get together with friends or relatives: 3 or more times per week How often do you attend mormon or anglican services: 4 or more times per year Do you belong to any clubs or organizations such as mormon groups unions, fraternal or athletic groups, or school groups: no Total score: 3 Score interpretation: A score of greater than or equal to 2 indicates the lowest level of social isolation. Little interest or pleasure in doing things: not at all Feeling down, depressed, or hopeless: not at all Feel stressed/tense/nervous/anxious/difficulty sleeping: not at all Do you think of yourself as: straight/heterosexual Gender Identity: female Meds Home Medications and Allergies Home Medications ?Medication ?Instructions ?Recorded ?Confirmed ?Type acetaminophen 500 mg capsule 1,000 mg PO Q6H PRN fever or pain 02/02/24 02/04/24 History ascorbic acid (vitamin C) 500 mg 500 mg PO BID 02/02/24 02/04/24 History chewable tablet (Acerola C) atorvastatin 40 mg tablet 40 mg PO .QHS 02/02/24 02/04/24 History bumetanide 2 mg tablet 2 mg PO DAILY 02/02/24 02/04/24 History diltiazem HCl 180 mg 180 mg PO DAILY 02/02/24 02/04/24 History capsule,extended release 24 hr (Cardizem CD) doxycycline hyclate 100 mg capsule 100 mg PO BID 02/02/24 02/04/24 History ergocalciferol (vitamin D2) 1,250 50,000 unit PO QWEEK 02/02/24 02/04/24 History mcg (50,000 unit) capsule ferrous sulfate 325 mg (65 mg 325 mg PO BID 02/02/24 02/04/24 History iron) tablet (FeroSul) insulin aspart U-100 100 unit/mL 4 - 14 sliding scale dose subcut 02/02/24 02/04/24 History (3 mL) subcutaneous pen (Novolog ACHS FlexPen U-100 Insulin aspart) insulin glargine 100 unit/mL (3 10 unit subcut BID 02/02/24 02/04/24 History mL) subcutaneous pen metoprolol tartrate 100 mg tablet 100 mg PO BID 02/02/24 02/04/24 History (Lopressor) midodrine 5 mg tablet 5 mg PO TIDWM 02/02/24 02/04/24 History multivitamin (Daily Multi-Vitamin 1 tab PO DAILY 02/02/24 02/04/24 History tablet) ondansetron HCl 4 mg tablet 4 mg PO Q6H PRN nausea and vomiting 02/02/24 02/04/24 History oxycodone 5 mg tablet 5 mg PO Q6H PRN pain 02/02/24 02/04/24 History pantoprazole 20 mg tablet,delayed 20 mg PO DAILY 02/02/24 02/04/24 History release potassium chloride 20 mEq oral 20 meq PO DAILY 02/02/24 02/04/24 History packet (Klor-Con) sertraline 50 mg tablet (Zoloft) 50 mg PO DAILY 02/02/24 02/04/24 History tamsulosin 0.4 mg capsule (Flomax) 0.4 mg PO DAILY 02/02/24 02/04/24 History zinc sulfate 50 mg zinc (220 mg) 50 mg PO DAILY 02/02/24 02/04/24 History capsule aspirin 81 mg chewable tablet 81 mg PO DAILY 02/04/24 02/04/24 History magnesium oxide 800 mg PO TID 02/04/24 02/04/24 History polyethylene glycol 3350 17 gram 17 g PO DAILY PRN constipation 02/04/24 02/04/24 History oral powder packet (Miralax) Allergies Allergy/AdvReac Type Severity Reaction Status Date / Time oats AdvReac Unknown Verified 02/02/24 16:53 Exam Constitutional Vital Signs, click to edit/add: Last Vital Signs Temp 98.1 F 02/04/24 07:07 Pulse 103 H 02/04/24 07:07 Resp 16 02/04/24 07:07 BP 102/79 02/04/24 13:00 Pulse Ox 99 02/04/24 12:30 O2 Del Method Room Air 02/04/24 08:01 Common normals: no apparent distress, oriented x3, alert and well nourished General appearance: cooperative Orientation/consciousness: Yes awake HENMT Common normals: normocephalic, head/scalp atraumatic, hearing grossly normal bilaterally, external nose normal and moist oral mucous membranes Eye Common normals: PERRL, EOMs intact bilaterally, conjunctivae normal and no scleral icterus Alignment: alignment normal Eyelid: eyelids normal Neck & C-Spine Common normals: full ROM, supple and no JVD Chest Common normals: inspection of chest normal Chest: symmetrical chest wall rise Respiratory Common normals: normal respiratory effort, no retractions, no use of accessory muscles and clear to auscultation bilaterally Effort & inspection: able to speak in complete sentences Auscultation: crackles (very faint LLL) and diminished lung sounds (Mild, RLL) Cardio Common normals: no JVD, regular rate, S1 normal heart sound, S2 normal heart sound, no gallops, no clicks, no murmurs, no rub and peripheral pulses 2+ throughout Rhythm: abnormal rhythm irregularly irregular GI Common normals: Normal to inspection, nondistended, normoactive bowel sounds present, soft to palpation, non-tender, no hepatosplenomegaly, no masses and no bruits Rectal Exam - Female: lesions (rectal mass, active bleeding) Bladder/kidney exam: bladder normal to palpation Back & Pelvis Common normals: thoracic and lumbar spine normal to inspection Coccyx: other (Large open coccyx pressure wound w/ tunneling noted) Extremity Common normals: normal capillary refill General: normal exam except as noted and edema (BLE 2-3+ insteps); no clubbing and no cyanosis Neuro Pete Coma Scale: GCS not evaluated Common normals: CN's II-XII intact bilaterally, moves all extremities, no focal motor deficits and no sensory deficits noted Speech: speech normal Motor exam: strength 5/5 throughout Psych Common normals: mental status grossly normal, thought process normal, affect normal and activity/motor behavior normal Results Labs Labs: Short CBC 02/04/24 02/04/24 Range/Units 07:36 15:06 WBC 10.4 (4.0-11.0) 10^3/uL Hgb 8.5 L 8.4 L (12.0-16.0) g/dL Hct 27.6 L 26.6 L (36.0-48.0) % Plt Count 144 L (150-450) 10^3/uL BMP 02/04/24 07:36 Sodium 141 Potassium 3.7 Chloride 104 Carbon Dioxide 28.0 BUN 19.0 H Creatinine 1.61 H Glucose 95 Calcium 8.1 L Liver Function 02/04/24 Range/Units 07:36 Total Bilirubin 0.5 (0.2-1.0) mg/dL AST 20 (15-37) U/L ALT 15 (14-59) U/L Alkaline Phosphatase 167 H (46-116) U/L Albumin 2.1 L (3.4-5.0) g/dL Pulse Oximetry Attestation: I have reviewed the pertinent pulse oximetry results. Imaging CT scan - abdomen: Attestation: I have reviewed the pertinent imaging results. Radiologist's impression: IMPRESSION: 1. Suspect wall thickening of rectum, but no definable mass. 2. Lower left anterior abdominal wall colostomy; no bowel obstruction or herniation. 3. Grossly unremarkable uterus and urinary bladder. 4. Cholelithiasis. 5. Tiny bilateral pleural effusions and trace amount of pericardial fluid; nonspecific. Assessment and Plan Assessment and Plan (1) Rectal bleed: Assessment and Plan: Acute * Adm inpatient * 2/ known rectal intramucosal adenocarcinoma that has not been treated/followed by oncology since diagnosis per biopsy at [facility] (11/28/23) * Mild to moderate persistent bleeding - no major hemorrhage at this time * Not on anticoagulation * Hold home daily low dose Aspirin for now * Consult general surgery - we appreciate Dr Pretty's assistance with this pt's care * Consult oncology - we appreciate Dr Arizmendi's assistance with this pt's care * CBC, CMP daily (2) Acute on chronic blood loss anemia: Assessment and Plan: Acute on Chronic * Hgb stable since 2 days ago at 8.5 (02/02/24 8.7) * asymptomatic at this time * Monitor HH q6h * Transfuse for hgb < 7 or if significantly symptomatic (3) BRANDEE (acute kidney injury): Assessment and Plan: Acute Laboratory Tests 02/04/24 07:36 BUN 19.0 H Creatinine 1.61 H Est GFR (Non-Af Amer) 32 L * Baseline CKD 2/3 * BUN 12-20 * Cr 0.99-1.11 * GFR 55-63 * Gentle IVF at 75/hr x 1 liter in setting of HFrEF * Hold home Bumex for now d/t renal toxicity * CMP daily (4) Adenocarcinoma of rectum: Assessment and Plan: Subacute * Confirmed by biopsy at [facility] 11/28/23 * Consult oncology - Dr Arizmendi * CT abd/pelvis not especially revealing - consider MRI pending clinical course * Pt has significant claustrophobia - will need anxiolytic prior to MRI (5) HFrEF (heart failure with reduced ejection fraction): Assessment and Plan: Chronic * Recent 2D Echo on 11/07/23 at [facility] - LVEF 40-45%, mild MV regurg, mild TV regurg, No pericardial effusion * BNP in ED elevated at 8733 * Currently appears dry despite BNP elevation * Hold home Bumex for now d/t brandee/dehydration * Resume when clinically indicated * Daily weights, strict I&O * BNP in AM (6) Pressure ulcer, sacrum: Assessment and Plan: Chronic * Consult wound care nurse for dressing recommendations * Turn q2h (7) Chronic a-fib: Assessment and Plan: Chronic * Continue home diltiazem, metoprolol for rate control * Anticoagulation discontinued d/t GIB on previous hospitalization (8) CKD (chronic kidney disease) stage 3, GFR 30-59 ml/min: Assessment and Plan: Chronic * See BRANDEE (9) DM2 (diabetes mellitus, type 2): Assessment and Plan: Chronic * Continue home Levemir BID * ACHS glucometer checks * Med SSI for glucose correction * Med CC diet (10) Hyperlipidemia: Assessment and Plan: Chronic * Continue home statin (11) Essential hypertension: Assessment and Plan: Chronic * Continue home diltiazem/metoprolol (12) MDD (major depressive disorder): Assessment and Plan: Chronic * Continue home Zoloft (13) GERD (gastroesophageal reflux disease): Assessment and Plan: Chronic * Continue home PPI Urinary Catheter Management Urinary Catheter Management 2-way Urethral: Cath placed during this visit: yes Urethral indwelling: Yes Reason for continuing: stage 3/4 pressure injury Insertion date: 02/04/24 Insertion time: 07:46
--- NOTE | 2024-02-04 16:16 | SWNOTE1 ---
Pt is from [facility] in [place], she is skilled there. She is a precert to return.
--- NOTE | 2024-02-04 16:32 | W.PM.WC ---
Wound Consult Note Assessment and Plan (1) Adenocarcinoma of rectum: Plan Consult: Rectal wound, abdominal wound, and colostomy care. Patient with adenocarcinoma of rectum with open wound to rectum that family reports was down to her spine at one point. Currently wound bed is beefy red, moist, and without visible fibrin or slough. Patient states it continues to get better. Patient states she does not have an air mattress at the facility she is currently at. Approximate measurements of rectal wound [id number] with depth at 9:00. These measurements may differ from facility's assessment as I do not know what position patient is in during her measurements and her findings would be positional dependent. Patient also reports a healing surgical wound on her abdomen. She is currently using collagen daily. Instructed patient that the hospital does not carry collagen products but I would provide her with a piece to use while inpatient from the outpatient wound center. She states it has been helping. The area would benefit from a debridement as the wound bed is pale and there is devitalized tissue to the wound edges. There are 2 spots on her incision that continue to be open. Entire area measures 8cmx0.7cmx0.1cm. Patient reports her colostomy pouch was just change this AM and continues to be adhered well. It was left in place. The pouch has good output of semi solid brown stool. With assistance of bedside care team, an air mattress overlay was applied to her bed. Patient reports this is comfortable. Instructed her she can take this with her and use on her bed. Recommendations: Normal saline moistened gauze to rectal wound. Tuck into depth gently and cover with ABD pads. Change daily. (Patient is using silver alginate at facility, this can be restarted after discharge) Collagen to abdominal wound daily. Cover with foam border dressing. Reposition frequently colostomy care as needed air mattress overlay Photos in chart. Orders in chart. Please call [phone] with any questions or concerns. Galileo Choudhury, PASCUALN, RN, CWON
[2024-02-04 16:33] LABS: Glucometer 198 mg/dL (74-106)
[2024-02-04 21:48] LABS: Glucometer 136 mg/dL (74-106)
[2024-02-04 21:50] LABS: Hematocrit 26.2 % (36.0-48.0); Hemoglobin 8.1 g/dL (12.0-16.0)
[2024-02-04] MEDS: LACTATED RINGER'S SOLUTION 1,000 ML 75 ML IV (22:18)
[2024-02-04] MEDS: AMMONIUM LACTATE 226 GM BOTTLE 1 APPLIC TOPICAL (22:20)
[2024-02-04] MEDS: MAGNESIUM OXIDE 400 MG TABLET 800 MG PO (22:20)
[2024-02-04] MEDS: FERROUS SULFATE 325 MG TABLET PO (22:21)
[2024-02-04] MEDS: METOPROLOL TARTRATE 100 MG TABLET PO (22:21)
[2024-02-04] MEDS: ATORVASTATIN CALCIUM 40 MG TABLET PO (22:21)
[2024-02-04] MEDS: DOXYCYCLINE MONOHYDRATE 100 MG CAPSULE PO (22:21)
[2024-02-05] VITALS (20 sets, daily range): BP systolic 104–132; BP diastolic 64–78; PULSE 94–130; TEMP 36.8–36.9; O2SAT 94–98
[2024-02-05 03:28] LABS: Basophils Percent Auto 0.4 % (0.2-2.0); Eosinophils Absolute Auto 0.2 10^3/uL (0.0-0.7); Eosinophils Percent Auto 2.3 % (0.9-7.0); Hemoglobin 8.2 g/dL (12.0-16.0); Immature Granulocytes Abs Auto 0.04 10^3/uL (0.00-0.03); Immature Granulocytes Pct Auto 0.4 % (0.0-0.5); Lymphocytes Absolute Auto 2.2 10^3/uL (1.2-3.8); Lymphocytes Percent Auto 23.2 % (20.5-60.0); Mean Corpuscular HGB Conc 31.5 g/dL (29.9-35.2); Mean Corpuscular Hemoglobin 29.5 pg (26.7-34.0); Mean Corpuscular Volume 93.5 fL (81.0-99.0); Mean Platelet Volume 10.5 fL (9.5-13.5); Monocytes Absolute Auto 0.8 10^3/uL (0.3-0.8); Monocytes Percent Auto 8.6 % (1.7-12.0); Neutrophils Absolute Auto 6.2 10^3/uL (1.4-6.5); Neutrophils Percent Auto 65.1 % (43.0-75.0); Platelet Count 132 10^3/uL (150-450); Red Blood Count 2.78 10^6/uL (4.20-5.40); Red Cell Distribution Width 15.7 % (11.0-15.0); White Blood Count 9.6 10^3/uL (4.0-11.0)
[2024-02-05 03:29] LABS: Alanine Aminotransferase 12 U/L (14-59); Albumin Globulin Ratio 0.6; Albumin Level 2.1 g/dL (3.4-5.0); Alkaline Phosphatase 132 U/L (46-116); Anion Gap 9.8; Aspartate Amino Transferase 18 U/L (15-37); BUN Creatinine Ratio 11.7; Bilirubin Total 0.5 mg/dL (0.2-1.0); Calcium 8.1 mg/dL (8.5-10.1); Carbon Dioxide 29.1 mmol/L (21.0-32.0); Chloride 106 mmol/L (98-107); Estimated GFR (African America 38 (>=60); Estimated GFR (Non-African Ame 32 (>=60); Globulin 3.6 g/dL; Glucose 92 mg/dL (74-106); Potassium 3.9 mmol/L (3.5-5.1); Sodium 141 mmol/L (136-145); Total Protein 5.7 g/dL (6.4-8.2)
[2024-02-05] MEDS: OMEPRAZOLE 20 MG CAPSULE.DR PO (05:56)
[2024-02-05] MEDS: MAGNESIUM OXIDE 400 MG TABLET 800 MG PO ×3 (05:56→22:10)
[2024-02-05 08:43] LABS: Hematocrit 27.3 % (36.0-48.0); Hemoglobin 8.5 g/dL (12.0-16.0)
[2024-02-05] MEDS: DILTIAZEM HCL 180 MG CAP.ER.24H PO (08:58)
[2024-02-05] MEDS: METOPROLOL TARTRATE 100 MG TABLET PO ×2 (08:58→22:10)
[2024-02-05] MEDS: BUMETANIDE 1 MG TABLET 2 MG PO ×2 (08:58→22:09)
[2024-02-05] MEDS: SERTRALINE HCL 50 MG TABLET PO (08:58)
[2024-02-05] MEDS: TAMSULOSIN HCL 0.4 MG CAPSULE 0.400000000000000022 MG PO (08:58)
[2024-02-05] MEDS: POTASSIUM CHLORIDE 10 MEQ ER TABLET 20 MEQ PO (08:58)
[2024-02-05] MEDS: MIDODRINE HCL 5 MG TABLET PO ×2 (08:58→11:36)
[2024-02-05] MEDS: INSULIN DETEMIR 300 UNIT/3 ML INSULN.PEN 10 UNIT SUBQ ×2 (08:59→22:12)
[2024-02-05] MEDS: DOXYCYCLINE MONOHYDRATE 100 MG CAPSULE PO ×2 (08:59→22:10)
[2024-02-05] MEDS: FERROUS SULFATE 325 MG TABLET PO ×2 (08:59→22:10)
[2024-02-05] MEDS: AMMONIUM LACTATE 226 GM BOTTLE 1 APPLIC TOPICAL ×2 (08:59→22:22)
--- NOTE | 2024-02-05 10:57 | P.PN_ITS ---
<Statement entered by Shaikh Nisha MD - 02/05/24 13:17> This documentation has been reviewed and approved. Patient seen and examined. Case discussed with Sol, Nursing staff and case amanagement. Agree with treatment plan and clinical documentation Exam: Obese, laying in bed. CTA b/l , normal RR Normal HR, no murmur Chronic sacral ulcer with tunneling. Active rectal bleeding with fresh blood oozing. Assessment and Plan Patient has active rectal bleeding and it has not decreased/stopped since admission. Suprisingly, his Hb has been stable. D/w General surgery again and patient might end up getting Sigmoidoscopy. Monitor H&H closely. Progress Note: Subjective Subjective Interval history: 02/05/24 0845 The patient is resting comfortably in bed at the time of my exam. She denies any significant pain, shortness of breath, or nausea. Nursing was concerned overnight for possible vaginal bleeding noted during ANALIA care. No vaginal bleeding noted on exam but continuous slow bleeding from the rectal area is noted. The patient will be seen in consult by Dr. Pretty today and we appreciate his assistance with this patient's care. I discussed the patient's care with Dr. Arizmendi, oncologist. He saw the pt yesterday in the ED and reviewed her [facility] discharge information from November. Further imaging for staging may be indicated as an outpatient in addition to possible colorectal surgery for mass removal. He would like to follow-up with the patient as an outpatient in 1 to 2 weeks after discharge. The patient's hemoglobin has remained stable for the last 24 hours. Unfortunately her renal function has not improved with IV fluids but her BNP is elevated today. We suspect that her current renal function has become her baseline (CKD 3b). We will resume her twice daily Bumex dosing today and monitor for worsening heart failure vs BRANDEE. We have also consulted cardiology for this patient due to her persistent A-fib with RVR (HR 105-120 overnight). The patient's blood pressures are soft and she is already on midodrine in addition to diltiazem and metoprolol. We appreciate cardiology's input for best heart rate management in this setting. Exam Constitutional Vital Signs, click to edit/add: Last Vital Signs Temp 98.3 F 02/05/24 04:38 Pulse 120 H 02/05/24 10:00 Resp 16 02/05/24 08:00 BP 130/67 02/05/24 08:58 Pulse Ox 96 02/05/24 04:38 O2 Del Method Room Air 02/05/24 04:38 Common normals: no apparent distress, oriented x3 and alert General appearance: cooperative Orientation/consciousness: Yes awake [facility] Common normals: normocephalic, head/scalp atraumatic and hearing grossly normal bilaterally Eye Common normals: PERRL, EOMs intact bilaterally, conjunctivae normal and no scleral icterus General eye: normal appearance of both eyes Chest Common normals: inspection of chest normal Chest: symmetrical chest wall rise Respiratory Common normals: normal respiratory effort, no use of accessory muscles and clear to auscultation bilaterally Effort & inspection: able to speak in complete sentences Auscultation: diminished lung sounds (BLL) Cardio Common normals: S1 normal heart sound, S2 normal heart sound, no murmurs and peripheral pulses 2+ throughout Rate: tachycardic (105-120s) Rhythm: abnormal rhythm irregularly irregular GI Common normals: Normal to inspection, nondistended, normoactive bowel sounds present, soft to palpation, non-tender and no hepatosplenomegaly Bladder/kidney exam: bladder normal to palpation Extremity Common normals: normal to inspection and no calf tenderness General: edema (2-3+ bilat insteps); no clubbing and no cyanosis Neuro Common normals: CN's II-XII intact bilaterally, moves all extremities, no focal motor deficits and no sensory deficits noted Psych Common normals: mental status grossly normal Progress Note: Objective Labs Labs: Short CBC 02/04/24 02/04/24 02/05/24 Range/Units 15:06 21:44 03:08 WBC 9.6 (4.0-11.0) 10^3/uL Hgb 8.4 L 8.1 L 8.2 L (12.0-16.0) g/dL Hct 26.6 L 26.2 L 26.0 L (36.0-48.0) % Plt Count 132 L (150-450) 10^3/uL 02/05/24 Range/Units 08:30 WBC (4.0-11.0) 10^3/uL Hgb 8.5 L (12.0-16.0) g/dL Hct 27.3 L (36.0-48.0) % Plt Count (150-450) 10^3/uL BMP 02/05/24 03:08 Sodium 141 Potassium 3.9 Chloride 106 Carbon Dioxide 29.1 BUN 19.0 H Creatinine 1.63 H Glucose 92 Calcium 8.1 L Liver Function 02/05/24 Range/Units 03:08 Total Bilirubin 0.5 (0.2-1.0) mg/dL AST 18 (15-37) U/L ALT 12 L (14-59) U/L Alkaline Phosphatase 132 H (46-116) U/L Albumin 2.1 L (3.4-5.0) g/dL Progress Note: A&P Assessment and Plan (1) Rectal bleed: Assessment and Plan: Acute * Hgb 8.2, remained stable overnight * 2/2 known rectal intramucosal adenocarcinoma that has not been treated/followed by oncology since diagnosis per biopsy at [facility] (11/28/23) * Mild to moderate persistent bleeding - no major hemorrhage at this time * Not on anticoagulation * Hold home daily low dose Aspirin for now * Consult general surgery - we appreciate Dr Pretty's assistance with this pt's care * Possible sigmoidoscopy/proctoscopy to further assess rectal mass for appropriateness for surgical intervention * Consult oncology - we appreciate Dr Arizmendi's assistance with this pt's care * Follow outpatient in 1-2 weeks * CBC, CMP daily (2) Acute on chronic blood loss anemia: Assessment and Plan: Acute on Chronic * Hgb stable at 8.2 today * asymptomatic at this time * Continue to monitor HH q6h x 24 more hrs * Transfuse for hgb < 7 or if significantly symptomatic (3) BRANDEE (acute kidney injury): Assessment and Plan: Acute * Suspect new baseline CKD 3b despite recent lab results from [facility] in November as below * Baseline CKD 2/3 * BUN 12-20 * Cr 0.99-1.11 * GFR 55-63 * DC IVF as no improvement in renal fx and BNP significantly elevated today * Resume home Bumex today * CMP daily (4) Adenocarcinoma of rectum: Assessment and Plan: Subacute * Confirmed by biopsy at [facility] 11/28/23 * Consult oncology - Dr Arizmendi * FU outpatient in 1-2 weeks * CT abd/pelvis not especially revealing - consider MRI pending clinical course * No evidence of metastatic disease to the liver or other abdominal structures * Pt has significant claustrophobia - will need anxiolytic prior to MRI if indicated by oncology or surgery (5) HFrEF (heart failure with reduced ejection fraction): Assessment and Plan: Chronic * Recent 2D Echo on 11/07/23 at [facility] - LVEF 40-45%, mild MV regurg, mild TV regurg, No pericardial effusion * BNP rising today - 10,477 * Appears hypervolemic * Resume home Bumex today * Cardiology consult * SOLITARIO hose daily while awake * Daily weights, strict I&O * BNP in AM (6) Pressure ulcer, sacrum: Assessment and Plan: Chronic * Consult wound care nurse * See note for recommendations * Turn q2h (7) Chronic a-fib: Assessment and Plan: Chronic * Continue home diltiazem, metoprolol for rate control * Rate poorly controlled since admission - HR 105-120s overnight * Consult cardiology for assistance with rate control in setting of baseline hypotension - we appreciate their assistance with this pt's care * Anticoagulation discontinued d/t GIB on previous hospitalization (8) CKD (chronic kidney disease) stage 3, GFR 30-59 ml/min: Assessment and Plan: Chronic * See BRANDEE (9) DM2 (diabetes mellitus, type 2): Assessment and Plan: Chronic * Continue home Levemir BID * ACHS glucometer checks * Med SSI for glucose correction * Med CC diet (10) Hyperlipidemia: Assessment and Plan: Chronic * Continue home statin (11) Essential hypertension: Assessment and Plan: Chronic * Continue home diltiazem/metoprolol (12) MDD (major depressive disorder): Assessment and Plan: Chronic * Continue home Zoloft (13) GERD (gastroesophageal reflux disease): Assessment and Plan: Chronic * Continue home PPI Urinary Catheter Management Urinary Catheter Management 2-way Urethral: Cath placed during this visit: yes Urethral indwelling: Yes Reason for continuing: stage 3/4 pressure injury Insertion date: 02/04/24 Insertion time: 07:46
--- NOTE | 2024-02-05 10:57 | PM.PN ---
Progress Note: Subjective Subjective Interval history: 02/05/24 0845 The patient is resting comfortably in bed at the time of my exam. She denies any significant pain, shortness of breath, or nausea. Nursing was concerned overnight for possible vaginal bleeding noted during ANALIA care. No vaginal bleeding noted on exam but continuous slow bleeding from the rectal area is noted. The patient will be seen in consult by Dr. Pretty today and we appreciate his assistance with this patient's care. I discussed the patient's care with Dr. Arizmendi, oncologist. He saw the pt yesterday in the ED and reviewed her [facility] discharge information from November. Further imaging for staging may be indicated as an outpatient in addition to possible colorectal surgery for mass removal. He would like to follow-up with the patient as an outpatient in 1 to 2 weeks after discharge. The patient's hemoglobin has remained stable for the last 24 hours. Unfortunately her renal function has not improved with IV fluids but her BNP is elevated today. We suspect that her current renal function has become her baseline (CKD 3b). We will resume her twice daily Bumex dosing today and monitor for worsening heart failure vs BRANDEE. We have also consulted cardiology for this patient due to her persistent A-fib with RVR (HR 105-120 overnight). The patient's blood pressures are soft and she is already on midodrine in addition to diltiazem and metoprolol. We appreciate cardiology's input for best heart rate management in this setting. Exam Constitutional Vital Signs, click to edit/add: Last Vital Signs Temp 98.3 F 02/05/24 04:38 Pulse 120 H 02/05/24 10:00 Resp 16 02/05/24 08:00 BP 130/67 02/05/24 08:58 Pulse Ox 96 02/05/24 04:38 O2 Del Method Room Air 02/05/24 04:38 Common normals: no apparent distress, oriented x3 and alert General appearance: cooperative Orientation/consciousness: Yes awake [facility] Common normals: normocephalic, head/scalp atraumatic and hearing grossly normal bilaterally Eye Common normals: PERRL, EOMs intact bilaterally, conjunctivae normal and no scleral icterus General eye: normal appearance of both eyes Chest Common normals: inspection of chest normal Chest: symmetrical chest wall rise Respiratory Common normals: normal respiratory effort, no use of accessory muscles and clear to auscultation bilaterally Effort & inspection: able to speak in complete sentences Auscultation: diminished lung sounds (BLL) Cardio Common normals: S1 normal heart sound, S2 normal heart sound, no murmurs and peripheral pulses 2+ throughout Rate: tachycardic (105-120s) Rhythm: abnormal rhythm irregularly irregular GI Common normals: Normal to inspection, nondistended, normoactive bowel sounds present, soft to palpation, non-tender and no hepatosplenomegaly Bladder/kidney exam: bladder normal to palpation Extremity Common normals: normal to inspection and no calf tenderness General: edema (2-3+ bilat insteps); no clubbing and no cyanosis Neuro Common normals: CN's II-XII intact bilaterally, moves all extremities, no focal motor deficits and no sensory deficits noted Psych Common normals: mental status grossly normal Progress Note: Objective Labs Labs: Short CBC 02/04/24 02/04/24 02/05/24 Range/Units 15:06 21:44 03:08 WBC 9.6 (4.0-11.0) 10^3/uL Hgb 8.4 L 8.1 L 8.2 L (12.0-16.0) g/dL Hct 26.6 L 26.2 L 26.0 L (36.0-48.0) % Plt Count 132 L (150-450) 10^3/uL 02/05/24 Range/Units 08:30 WBC (4.0-11.0) 10^3/uL Hgb 8.5 L (12.0-16.0) g/dL Hct 27.3 L (36.0-48.0) % Plt Count (150-450) 10^3/uL BMP 02/05/24 03:08 Sodium 141 Potassium 3.9 Chloride 106 Carbon Dioxide 29.1 BUN 19.0 H Creatinine 1.63 H Glucose 92 Calcium 8.1 L Liver Function 02/05/24 Range/Units 03:08 Total Bilirubin 0.5 (0.2-1.0) mg/dL AST 18 (15-37) U/L ALT 12 L (14-59) U/L Alkaline Phosphatase 132 H (46-116) U/L Albumin 2.1 L (3.4-5.0) g/dL Progress Note: A&P Assessment and Plan (1) Rectal bleed: Assessment and Plan: Acute Hgb 8.2, remained stable overnight 2/2 known rectal intramucosal adenocarcinoma that has not been treated/followed by oncology since diagnosis per biopsy at [facility] (11/28/23) Mild to moderate persistent bleeding - no major hemorrhage at this time Not on anticoagulation Hold home daily low dose Aspirin for now Consult general surgery - we appreciate Dr Pretty's assistance with this pt's care Possible sigmoidoscopy/proctoscopy to further assess rectal mass for appropriateness for surgical intervention Consult oncology - we appreciate Dr Arizmendi's assistance with this pt's care Follow outpatient in 1-2 weeks CBC, CMP daily (2) Acute on chronic blood loss anemia: Assessment and Plan: Acute on Chronic Hgb stable at 8.2 today asymptomatic at this time Continue to monitor HH q6h x 24 more hrs Transfuse for hgb < 7 or if significantly symptomatic (3) BRANDEE (acute kidney injury): Assessment and Plan: Acute Suspect new baseline CKD 3b despite recent lab results from [facility] in November as below Baseline CKD 2/3 BUN 12-20 Cr 0.99-1.11 GFR 55-63 DC IVF as no improvement in renal fx and BNP significantly elevated today Resume home Bumex today CMP daily (4) Adenocarcinoma of rectum: Assessment and Plan: Subacute Confirmed by biopsy at [facility] 11/28/23 Consult oncology - Dr Arizmendi FU outpatient in 1-[address] abd/pelvis not especially revealing - consider MRI pending clinical course No evidence of metastatic disease to the liver or other abdominal structures Pt has significant claustrophobia - will need anxiolytic prior to MRI if indicated by oncology or surgery (5) HFrEF (heart failure with reduced ejection fraction): Assessment and Plan: Chronic Recent 2D Echo on 11/07/23 at [facility] - LVEF 40-45%, mild MV regurg, mild TV regurg, No pericardial effusion BNP rising today - 10,477 Appears hypervolemic Resume home Bumex today Cardiology consult SOLITARIO hose daily while awake Daily weights, strict I&O BNP in AM (6) Pressure ulcer, sacrum: Assessment and Plan: Chronic Consult wound care nurse See note for recommendations Turn q2h (7) Chronic a-fib: Assessment and Plan: Chronic Continue home diltiazem, metoprolol for rate control Rate poorly controlled since admission - HR 105-120s overnight Consult cardiology for assistance with rate control in setting of baseline hypotension - we appreciate their assistance with this pt's care Anticoagulation discontinued d/t GIB on previous hospitalization (8) CKD (chronic kidney disease) stage 3, GFR 30-59 ml/min: Assessment and Plan: Chronic See BRANDEE (9) DM2 (diabetes mellitus, type 2): Assessment and Plan: Chronic Continue home Levemir BID ACHS glucometer checks Med SSI for glucose correction Med CC diet (10) Hyperlipidemia: Assessment and Plan: Chronic Continue home statin (11) Essential hypertension: Assessment and Plan: Chronic Continue home diltiazem/metoprolol (12) MDD (major depressive disorder): Assessment and Plan: Chronic Continue home Zoloft (13) GERD (gastroesophageal reflux disease): Assessment and Plan: Chronic Continue home PPI Urinary Catheter Management Urinary Catheter Management 2-way Urethral: Cath placed during this visit: yes Urethral indwelling: Yes Reason for continuing: stage 3/4 pressure injury Insertion date: 02/04/24 Insertion time: 07:46
--- NOTE | 2024-02-05 10:58 | CM.NOTE ---
Rounds made with Dr. Cameron, examined pt rectally and vaginally for bleeding. RN concerned bleeding was coming from vaginal area. Blood appears to be coming from rectum. Awaiting general surgical consult for further recommendations. Oncology also consulted on pt.
[2024-02-05 11:06] LABS: Glucometer 158 mg/dL (74-106)
[2024-02-05] MEDS: INSULIN ASPART 300 UNIT/3 ML PEN SUBQ ×2 (11:26→22:13)
--- NOTE | 2024-02-05 12:28 | SWNOTE1 ---
SW spoke with pt and she is not happy with her care at [facility] and she does not want to return. SW provided star rating list from medicare.gov and informed pt we will have to find someone who accepts her insurance. Pt would like to stay here in [place] and she would like SW to look in to [facility]. SW reached out to [facility] and they have a semi-private room open. SW to check with pt and see if she is open to sharing a room.
--- NOTE | 2024-02-05 12:48 | P.GSCN_ITS ---
History of Present Illness Consult details Consult date: 02/04/24 Narrative: 68 yo F with complicated abdominal history. She presented to the ER after there was concerns for blood from her vagnia after a traumatic dasilva insertion. The [facility] was able to place a dasilva. There was discussion about possible rectal blood as well. 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 Subsequently in Oct or 2023 she had a anal biopsy procedure done and confirmed adenocarcinoma of the rectum. She unfortunately has not followed up with the colorectal surgeon to discuss further treatment. She denies any blood from her rectum in the last 3 months. She has been tolerating diet and her colostomy has been functioning well. Denies any current f/c, n/v, or sob. Discussed the importance of her following up with a colorectal surgeon to discuss surgical options if she is deemed a candidate. Review of Systems ROS Status of ROS 10 or more systems reviewed and unremark able except as noted in history and below [facility] Medical History (Updated 02/04/24 @ 17:08 by Sol Hayes NP) Adenocarcinoma of rectum ?C20 - Malignant neoplasm of rectum (ICD-10) GERD (gastroesophageal reflux disease) ?K21.9 - Gastro-esophageal reflux disease without esophagitis (ICD-10) CHF (congestive heart failure) ?I50.9 - Heart failure, unspecified (ICD-10) Depression ?F32.A - Depression, unspecified (ICD-10) Closed head injury ?S09.90XA - Unspecified injury of head, initial encounter (ICD-10) Post concussion syndrome ?F07.81 - Postconcussional syndrome (ICD-10) Neck pain ?M54.2 - Cervicalgia (ICD-10) Osteomyelitis of vertebra, sacral and sacrococcygeal region ?M46.28 - Osteomyelitis of vertebra, sacral and sacrococcygeal region (ICD- 10) GI hemorrhage ?K92.2 - Gastrointestinal hemorrhage, unspecified (ICD-10) Pressure ulcer, sacrum ?L89.159 - Pressure ulcer of sacral region, unspecified stage (ICD-10) Chronic a-fib ?I48.20 - Chronic atrial fibrillation, unspecified (ICD-10) CKD (chronic kidney disease) stage 3, GFR 30-59 ml/min ?N18.30 - Chronic kidney disease, stage 3 unspecified (ICD-10) DM2 (diabetes mellitus, type 2) ?E11.9 - Type 2 diabetes mellitus without complications (ICD-10) Hyperlipidemia ?E78.5 - Hyperlipidemia, unspecified (ICD-10) Essential hypertension ?I10 - Essential (primary) hypertension (ICD-10) HFrEF (heart failure with reduced ejection fraction) ?I50.20 - Unspecified systolic (congestive) heart failure (ICD-10) MDD (major depressive disorder) ?F32.9 - Major depressive disorder, single episode, unspecified (ICD-10) Muscle wasting and atrophy, not elsewhere classified, multiple sites ?M62.59 - Muscle wasting and atrophy, not elsewhere classified, multiple sites (ICD-10) Surgical History (Updated 02/04/24 @ 16:50 by Bhavani Medrano) Colostomy in place ?Z93.3 - Colostomy status (ICD-10) Family History (Updated 02/04/24 @ 15:51 by Bhavani Medrano) Father Family history of myocardial infarction Family history of hypertension Mother Family history of CHF (congestive heart failure) Family history of cancer Family history of hypertension Grandmother Family history of diabetes mellitus Family history of hypertension Social History (Updated 02/04/24 @ 15:50 by Bhavani Medrano) Within the past year, how often did you have a drink containing alcohol: never Within the past year, how often did you have six or more drinks on one occasion: never Score interpretation: A score less than 3 is consistent with normal alcohol consumption. Smoking status: Former smoker Non-prescribed substance use: denies use Previous occupational history: retired Highest level of school completed/degree received: high school graduate Are you now , , , , never or living with a partner: In a typical week, how many times do you talk on the telephone with family, friends, or neighbors: 3 or more times per week How often do you get together with friends or relatives: 3 or more times per week How often do you attend pentecostalism or episcopalian services: 4 or more times per year Do you belong to any clubs or organizations such as pentecostalism groups unions, fraternal or athletic groups, or school groups: no Total score: 3 Score interpretation: A score of greater than or equal to 2 indicates the lowest level of social isolation. Little interest or pleasure in doing things: not at all Feeling down, depressed, or hopeless: not at all Feel stressed/tense/nervous/anxious/difficulty sleeping: not at all Do you think of yourself as: straight/heterosexual Gender Identity: female Meds Home Medications and Allergies Home Medications ?Medication ?Instructions ?Recorded ?Confirmed ?Type acetaminophen 500 mg capsule 1,000 mg PO Q6H PRN fever or pain 02/02/24 02/04/24 History ascorbic acid (vitamin C) 500 mg 500 mg PO BID 02/02/24 02/04/24 History chewable tablet (Acerola C) atorvastatin 40 mg tablet 40 mg PO .QHS 02/02/24 02/04/24 History bumetanide 2 mg tablet 2 mg PO DAILY 02/02/24 02/04/24 History diltiazem HCl 180 mg 180 mg PO DAILY 02/02/24 02/04/24 History capsule,extended release 24 hr (Cardizem CD) doxycycline hyclate 100 mg capsule 100 mg PO BID 02/02/24 02/04/24 History ergocalciferol (vitamin D2) 1,250 50,000 unit PO QWEEK 02/02/24 02/04/24 History mcg (50,000 unit) capsule ferrous sulfate 325 mg (65 mg 325 mg PO BID 02/02/24 02/04/24 History iron) tablet (FeroSul) insulin aspart U-100 100 unit/mL 4 - 14 sliding scale dose subcut 02/02/24 02/04/24 History (3 mL) subcutaneous pen (Novolog ACHS FlexPen U-100 Insulin aspart) insulin glargine 100 unit/mL (3 10 unit subcut BID 02/02/24 02/04/24 History mL) subcutaneous pen metoprolol tartrate 100 mg tablet 100 mg PO BID 02/02/24 02/04/24 History (Lopressor) midodrine 5 mg tablet 5 mg PO TIDWM 02/02/24 02/04/24 History multivitamin (Daily Multi-Vitamin 1 tab PO DAILY 02/02/24 02/04/24 History tablet) ondansetron HCl 4 mg tablet 4 mg PO Q6H PRN nausea and vomiting 02/02/24 02/04/24 History oxycodone 5 mg tablet 5 mg PO Q6H PRN pain 02/02/24 02/04/24 History pantoprazole 20 mg tablet,delayed 20 mg PO DAILY 02/02/24 02/04/24 History release potassium chloride 20 mEq oral 20 meq PO DAILY 02/02/24 02/04/24 History packet (Klor-Con) sertraline 50 mg tablet (Zoloft) 50 mg PO DAILY 02/02/24 02/04/24 History tamsulosin 0.4 mg capsule (Flomax) 0.4 mg PO DAILY 02/02/24 02/04/24 History zinc sulfate 50 mg zinc (220 mg) 50 mg PO DAILY 02/02/24 02/04/24 History capsule aspirin 81 mg chewable tablet 81 mg PO DAILY 02/04/24 02/04/24 History magnesium oxide 800 mg PO TID 02/04/24 02/04/24 History polyethylene glycol 3350 17 gram 17 g PO DAILY PRN constipation 02/04/24 02/04/24 History oral powder packet (Miralax) Allergies Allergy/AdvReac Type Severity Reaction Status Date / Time oats AdvReac Unknown Verified 02/02/24 16:53 Exam Constitutional Vital Signs, click to edit/add: Last Vital Signs Temp 98.4 F 02/05/24 11:34 Pulse 130 H 02/05/24 11:42 Resp 18 02/05/24 11:34 BP 132/78 02/05/24 11:36 Pulse Ox 98 02/05/24 11:34 O2 Del Method Room Air 02/05/24 11:34 Common normals: no apparent distress and oriented x3 HENMT Common normals: normocephalic and head/scalp atraumatic Eye Common normals: PERRL and EOMs intact bilaterally Respiratory Common normals: normal respiratory effort and no retractions Cardio Rate: regular rate Rhythm: regular rhythm GI Common normals: soft to palpation and non-tender Other: colostomy bag Extremity Common normals: normal to inspection Neuro Sensorium/orientation: awake Speech: speech normal Results Labs Labs: Abnormal lab results 02/04/24 02/04/24 02/04/24 Range/Units 07:36 15:06 16:32 RBC (4.20-5.40) 10^6/uL Hgb 8.4 L (12.0-16.0) g/dL Hct 26.6 L (36.0-48.0) % RDW (11.0-15.0) % Plt Count (150-450) 10^3/uL Abs Immat Gran (auto) (0.00-0.03) 10^3/uL BUN (7.0-18.0) mg/dL Creatinine (0.55-1.02) mg/dL Est GFR ( Amer) (>=60) Est GFR (Non-Af Amer) (>=60) Calcium (8.5-10.1) mg/dL ALT (14-59) U/L Alkaline Phosphatase (46-116) U/L NT-Pro-B Natriuret Pep 8773.0 H* (<=900.0) pg/mL Total Protein (6.4-8.2) g/dL Albumin (3.4-5.0) g/dL POC Glucose 198 H (74-106) mg/dL 02/04/24 02/04/24 02/05/24 Range/Units 21:44 21:47 03:08 RBC 2.78 L (4.20-5.40) 10^6/uL Hgb 8.1 L 8.2 L (12.0-16.0) g/dL Hct 26.2 L 26.0 L (36.0-48.0) % RDW 15.7 H (11.0-15.0) % Plt Count 132 L (150-450) 10^3/uL Abs Immat Gran (auto) 0.04 H (0.00-0.03) 10^3/uL BUN 19.0 H (7.0-18.0) mg/dL Creatinine 1.63 H (0.55-1.02) mg/dL Est GFR ( Amer) 38 L (>=60) Est GFR (Non-Af Amer) 32 L (>=60) Calcium 8.1 L (8.5-10.1) mg/dL ALT 12 L (14-59) U/L Alkaline Phosphatase 132 H (46-116) U/L NT-Pro-B Natriuret Pep 58238.0 H* (<=900.0) pg/mL Total Protein 5.7 L (6.4-8.2) g/dL Albumin 2.1 L (3.4-5.0) g/dL POC Glucose 136 H (74-106) mg/dL 02/05/24 02/05/24 Range/Units 08:30 11:05 RBC (4.20-5.40) 10^6/uL Hgb 8.5 L (12.0-16.0) g/dL Hct 27.3 L (36.0-48.0) % RDW (11.0-15.0) % Plt Count (150-450) 10^3/uL Abs Immat Gran (auto) (0.00-0.03) 10^3/uL BUN (7.0-18.0) mg/dL Creatinine (0.55-1.02) mg/dL Est GFR ( Amer) (>=60) Est GFR (Non-Af Amer) (>=60) Calcium (8.5-10.1) mg/dL ALT (14-59) U/L Alkaline Phosphatase (46-116) U/L NT-Pro-B Natriuret Pep (<=900.0) pg/mL Total Protein (6.4-8.2) g/dL Albumin (3.4-5.0) g/dL POC Glucose 158 H (74-106) mg/dL Diabetes panel 02/05/24 Range/Units 03:08 Sodium 141 (136-145) mmol/L Potassium 3.9 (3.5-5.1) mmol/L Chloride 106 (98-107) mmol/L Carbon Dioxide 29.1 (21.0-32.0) mmol/L BUN 19.0 H (7.0-18.0) mg/dL Creatinine 1.63 H (0.55-1.02) mg/dL Glucose 92 (74-106) mg/dL Calcium 8.1 L (8.5-10.1) mg/dL AST 18 (15-37) U/L ALT 12 L (14-59) U/L Alkaline Phosphatase 132 H (46-116) U/L Total Protein 5.7 L (6.4-8.2) g/dL Albumin 2.1 L (3.4-5.0) g/dL Calcium panel 02/05/24 Range/Units 03:08 Calcium 8.1 L (8.5-10.1) mg/dL Albumin 2.1 L (3.4-5.0) g/dL Pituitary panel 02/05/24 Range/Units 03:08 Sodium 141 (136-145) mmol/L Potassium 3.9 (3.5-5.1) mmol/L Chloride 106 (98-107) mmol/L Carbon Dioxide 29.1 (21.0-32.0) mmol/L BUN 19.0 H (7.0-18.0) mg/dL Creatinine 1.63 H (0.55-1.02) mg/dL Glucose 92 (74-106) mg/dL Calcium 8.1 L (8.5-10.1) mg/dL Adrenal panel 02/05/24 Range/Units 03:08 Sodium 141 (136-145) mmol/L Potassium 3.9 (3.5-5.1) mmol/L Chloride 106 (98-107) mmol/L Carbon Dioxide 29.1 (21.0-32.0) mmol/L BUN 19.0 H (7.0-18.0) mg/dL Creatinine 1.63 H (0.55-1.02) mg/dL Glucose 92 (74-106) mg/dL Calcium 8.1 L (8.5-10.1) mg/dL Total Bilirubin 0.5 (0.2-1.0) mg/dL AST 18 (15-37) U/L ALT 12 L (14-59) U/L Alkaline Phosphatase 132 H (46-116) U/L Total Protein 5.7 L (6.4-8.2) g/dL Albumin 2.1 L (3.4-5.0) g/dL All other labs normal. Assessment and Plan Assessment and Plan (1) Rectal bleed: Assessment and Plan: No active/ongoing bleeding noted at this time. Patient has tissue diagnosis of adenocarcinoma less then 4cm from the anal verge. She needs close follow up with a colorectal specialist to discuss possible APR if she is determined to be a surgical candidate. She is adamant about not going towards [facility] for care. Discussed seeing a provider either at the [facility] or . She will discuss with her . Communicated with the rounding medicine team about need for referral to colorectal specialist and need for ongoing workup. Heme/onc following. Contact general surgery as needed. Thank you. (2) Acute on chronic blood loss anemia: (3) BRANDEE (acute kidney injury): (4) Adenocarcinoma of rectum: (5) HFrEF (heart failure with reduced ejection fraction): (6) Pressure ulcer, sacrum: (7) Chronic a-fib: (8) CKD (chronic kidney disease) stage 3, GFR 30-59 ml/min: (9) DM2 (diabetes mellitus, type 2): (10) Hyperlipidemia: (11) Essential hypertension: (12) MDD (major depressive disorder): (13) GERD (gastroesophageal reflux disease):
--- NOTE | 2024-02-05 13:34 | SWNOTE1 ---
[facility] is not able to accept. SW to speak with pt.
--- NOTE | 2024-02-05 14:43 | SWNOTE1 ---
MARILOU spoke with pt and she would like SW to try [facility]. SW sent referral to [facility]. MARILOU received email from [facility] at [facility] [employer] and they are running her benefits and it is saying she has plain medicare and [employer] as secondary. MARILOU reached out to [facility], but she did not answer. MARILOU called and spoke with Madiha in billing and she voiced it was [employer] medicare as primary. MARILOU let [facility] know. MARILOU then received call back from Madiha and pt does in fact have medicare as primary and [employer] as secondary. Rufina will fix in our system. MARILOU let [facility] know and sent [facility] physical therapy note as well.
--- NOTE | 2024-02-05 15:06 | W.PM.WC ---
Wound Consult Note Assessment and Plan (1) Rectal bleed: (2) Acute on chronic blood loss anemia: (3) BRANDEE (acute kidney injury): (4) Adenocarcinoma of rectum: (5) HFrEF (heart failure with reduced ejection fraction): (6) Pressure ulcer, sacrum: (7) Chronic a-fib: (8) CKD (chronic kidney disease) stage 3, GFR 30-59 ml/min: (9) DM2 (diabetes mellitus, type 2): (10) Hyperlipidemia: (11) Essential hypertension: (12) MDD (major depressive disorder): (13) GERD (gastroesophageal reflux disease): Plan Returned to see patient today to provide collagen silver dressing patient requested for abdominal incisional wound. Dressing changed today using puracol AG and mepilex foam border dressing. Supply left on bedside counter. Discussed nature of patient's posterior wound more in depth today to get better understanding of how open area happened. Patient confirmed it was not cancer related as it was from pressure [facility] at the [facility] and needed to be surgically debrided. Patient states once it was debrided area when down to bone. 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 Currently ulcer has no bone exposed, resulting in a healing stage 4 pressure injury. Patient is frustrated with current diagnosis she received earlier today from medical team in terms of her cancer. Emotional support provided. Patient is thankful for the visit today. Continue all other wound care orders. Please call [phone] with any questions or concerns. Galileo Choudhury, PASCUALN, RN, CWON
[2024-02-05 15:16] LABS: Hematocrit 26.2 % (36.0-48.0); Hemoglobin 8.3 g/dL (12.0-16.0)
--- NOTE | 2024-02-05 15:50 | SWNOTE1 ---
[facility] is attempting to confirm pt's 3 days stay at prior hospital. SW spoke to pt in regards to where she was at prior to [facility]. Pt stated she was transferred from here to [facility] (she thinks), then she was at [facility], the [facility], and from there she went to [facility]. Pt does think she has only been at [facility] for about 2 weeks. MARILOU passed this information on to Galileo at [facility].
[2024-02-05] MEDS: MIDODRINE HCL 5 MG TABLET 10 MG PO (16:11)
[2024-02-05] MEDS: DILTIAZEM HCL 60 MG TABLET PO (16:11)
--- NOTE | 2024-02-05 16:15 | CM.NOTE ---
Important Message From Medicare discussed with pt, pt verbalizes understanding and signs paper. Original given to pt and copy placed in pt's chart.
--- NOTE | 2024-02-05 16:18 | SWNOTE1 ---
[facility] is able to accept when pt is medically stable for discharge.
[2024-02-05 16:22] LABS: Glucometer 127 mg/dL (74-106)
--- NOTE | 2024-02-05 17:32 | P.CACN_ITS ---
History of Present Illness History of Present Illness Consult date: 02/05/24 Requesting physician: Sol Hayes Consult reason: atrial fibrillation, congestive heart failure and shortness of breath Chief complaint: Rectal Mass, Rectal Bleeding Narrative: This is a 68-year-old woman with very complex medical history. This includes paroxysmal atrial fibrillation, prior history of atypical flutter status post ablation in 2021, history of coronary artery disease that was nonobstructive by cardiac catheterization in 2020, chronic systolic heart failure with last ejection fraction around 40%, adenocarcinoma of the rectum, chronic sacral decubitus ulcer and sacral osteomyelitis, history of GI bleed requiring exploratory laparotomy laparotomy with small bowel resection and colostomy creation in September 2023. The patient was admitted recently to [facility] with sepsis and atrial fibrillation with rapid ventricular response. She was treated with intravenous antibiotics. At that time she had mild elevation of troponin and she was managed medically. Given her overall comorbidities and severe acute renal insufficiency requiring hemodialysis it was decided not to pursue additional cardiac catheterization or coronary CTA for assessment of the coronaries. During that admission she required transfusion of blood and anticoagulation was held. She was discharged to [facility]. She is now readmitted to the [facility] with rectal bleeding, atrial fibrillation with rapid ventricular response as well as shortness of breath and lower extremity edema. She has been managed with diuretic therapy. One of the main issues is low blood pressure and elevated heart rate. She has not been maintained on anticoagulation therapy due to bleeding. She currently says that she feels better. Her breathing is improved. She does not have chest pain. She has significant lower extremity edema. Review of Systems ROS Status of ROS 10 or more systems reviewed and unremark able except as noted in history and below Cardiovascular Reports: shortness of breath with exertion Hematologic/Lymphatic Reports: easy bleeding [facility] Medical History (Updated 02/05/24 @ 17:40 by ROB DUNLAP) Adenocarcinoma of rectum ?C20 - Malignant neoplasm of rectum (ICD-10) GERD (gastroesophageal reflux disease) ?K21.9 - Gastro-esophageal reflux disease without esophagitis (ICD-10) CHF (congestive heart failure) ?I50.9 - Heart failure, unspecified (ICD-10) Depression ?F32.A - Depression, unspecified (ICD-10) Closed head injury ?S09.90XA - Unspecified injury of head, initial encounter (ICD-10) Post concussion syndrome ?F07.81 - Postconcussional syndrome (ICD-10) Neck pain ?M54.2 - Cervicalgia (ICD-10) Osteomyelitis of vertebra, sacral and sacrococcygeal region ?M46.28 - Osteomyelitis of vertebra, sacral and sacrococcygeal region (ICD- 10) GI hemorrhage ?K92.2 - Gastrointestinal hemorrhage, unspecified (ICD-10) Pressure ulcer, sacrum ?L89.159 - Pressure ulcer of sacral region, unspecified stage (ICD-10) Chronic a-fib ?I48.20 - Chronic atrial fibrillation, unspecified (ICD-10) CKD (chronic kidney disease) stage 3, GFR 30-59 ml/min ?N18.30 - Chronic kidney disease, stage 3 unspecified (ICD-10) DM2 (diabetes mellitus, type 2) ?E11.9 - Type 2 diabetes mellitus without complications (ICD-10) Hyperlipidemia ?E78.5 - Hyperlipidemia, unspecified (ICD-10) Essential hypertension ?I10 - Essential (primary) hypertension (ICD-10) HFrEF (heart failure with reduced ejection fraction) ?I50.20 - Unspecified systolic (congestive) heart failure (ICD-10) MDD (major depressive disorder) ?F32.9 - Major depressive disorder, single episode, unspecified (ICD-10) Muscle wasting and atrophy, not elsewhere classified, multiple sites ?M62.59 - Muscle wasting and atrophy, not elsewhere classified, multiple sites (ICD-10) Surgical History (Updated 02/04/24 @ 16:50 by Bhavani Medrano) Colostomy in place ?Z93.3 - Colostomy status (ICD-10) Family History (Updated 02/04/24 @ 15:51 by Bhavani Medrano) Father Family history of myocardial infarction Family history of hypertension Mother Family history of CHF (congestive heart failure) Family history of cancer Family history of hypertension Grandmother Family history of diabetes mellitus Family history of hypertension Social History (Updated 02/04/24 @ 15:50 by Bhavani Medrano) Within the past year, how often did you have a drink containing alcohol: never Within the past year, how often did you have six or more drinks on one occasion: never Score interpretation: A score less than 3 is consistent with normal alcohol consumption. Smoking status: Former smoker Non-prescribed substance use: denies use Previous occupational history: retired Highest level of school completed/degree received: high school graduate Are you now , , , , never or living with a partner: In a typical week, how many times do you talk on the telephone with family, friends, or neighbors: 3 or more times per week How often do you get together with friends or relatives: 3 or more times per week How often do you attend methodist or islam services: 4 or more times per year Do you belong to any clubs or organizations such as methodist groups unions, [employer] or athletic groups, or school groups: no Total score: 3 Score interpretation: A score of greater than or equal to 2 indicates the lowest level of social isolation. Little interest or pleasure in doing things: not at all Feeling down, depressed, or hopeless: not at all Feel stressed/tense/nervous/anxious/difficulty sleeping: not at all Do you think of yourself as: straight/heterosexual Gender Identity: female Meds Home Medications and Allergies Home Medications ?Medication ?Instructions ?Recorded ?Confirmed ?Type acetaminophen 500 mg capsule 1,000 mg PO Q6H PRN fever or pain 02/02/24 02/04/24 History ascorbic acid (vitamin C) 500 mg 500 mg PO BID 02/02/24 02/04/24 History chewable tablet (Acerola C) atorvastatin 40 mg tablet 40 mg PO .QHS 02/02/24 02/04/24 History bumetanide 2 mg tablet 2 mg PO DAILY 02/02/24 02/04/24 History diltiazem HCl 180 mg 180 mg PO DAILY 02/02/24 02/04/24 History capsule,extended release 24 hr (Cardizem CD) doxycycline hyclate 100 mg capsule 100 mg PO BID 02/02/24 02/04/24 History ergocalciferol (vitamin D2) 1,250 50,000 unit PO QWEEK 02/02/24 02/04/24 History mcg (50,000 unit) capsule ferrous sulfate 325 mg (65 mg 325 mg PO BID 02/02/24 02/04/24 History iron) tablet (FeroSul) insulin aspart U-100 100 unit/mL 4 - 14 sliding scale dose subcut 02/02/24 02/04/24 History (3 mL) subcutaneous pen (Novolog ACHS FlexPen U-100 Insulin aspart) insulin glargine 100 unit/mL (3 10 unit subcut BID 02/02/24 02/04/24 History mL) subcutaneous pen metoprolol tartrate 100 mg tablet 100 mg PO BID 02/02/24 02/04/24 History (Lopressor) midodrine 5 mg tablet 5 mg PO TIDWM 02/02/24 02/04/24 History multivitamin (Daily Multi-Vitamin 1 tab PO DAILY 02/02/24 02/04/24 History tablet) ondansetron HCl 4 mg tablet 4 mg PO Q6H PRN nausea and vomiting 02/02/24 02/04/24 History oxycodone 5 mg tablet 5 mg PO Q6H PRN pain 02/02/24 02/04/24 History pantoprazole 20 mg tablet,delayed 20 mg PO DAILY 02/02/24 02/04/24 History release potassium chloride 20 mEq oral 20 meq PO DAILY 02/02/24 02/04/24 History packet (Klor-Con) sertraline 50 mg tablet (Zoloft) 50 mg PO DAILY 02/02/24 02/04/24 History tamsulosin 0.4 mg capsule (Flomax) 0.4 mg PO DAILY 02/02/24 02/04/24 History zinc sulfate 50 mg zinc (220 mg) 50 mg PO DAILY 02/02/24 02/04/24 History capsule aspirin 81 mg chewable tablet 81 mg PO DAILY 02/04/24 02/04/24 History magnesium oxide 800 mg PO TID 02/04/24 02/04/24 History polyethylene glycol 3350 17 gram 17 g PO DAILY PRN constipation 02/04/24 02/04/24 History oral powder packet (Miralax) Allergies Allergy/AdvReac Type Severity Reaction Status Date / Time oats AdvReac Unknown Verified 02/02/24 16:53 Exam Constitutional Vital Signs, click to edit/add: Last Vital Signs Temp 98.4 F 02/05/24 16:00 Pulse 116 H 02/05/24 16:10 Resp 16 02/05/24 16:00 BP 104/73 02/05/24 16:11 Pulse Ox 98 02/05/24 16:00 O2 Del Method Room Air 02/05/24 16:00 Common normals: no apparent distress, average body habitus, oriented x3, no limitations, healthy appearing, alert and well nourished [facility] Common normals: normocephalic Eye General eye: normal appearance of both eyes Neck & C-Spine General: normal visual inspection Chest Common normals: inspection of chest normal Respiratory Common normals: normal respiratory effort Auscultation: clear to auscultation bilaterally Cardio Common normals: no murmurs Rate: tachycardic Rhythm: abnormal rhythm irregularly irregular Heart sounds: S1 normal and S2 normal Extremity Other: +2 lower extremity edema Neuro Common normals: oriented x3 Sensorium/orientation: awake, alert and oriented to person Results Labs and Meds Lab results: Cardiac Enzymes 02/05/24 Range/Units 03:08 AST 18 (15-37) U/L CBC 02/04/24 02/05/24 02/05/24 Range/Units 21:44 03:08 08:30 WBC 9.6 (4.0-11.0) 10^3/uL RBC 2.78 L (4.20-5.40) 10^6/uL Hgb 8.1 L 8.2 L 8.5 L (12.0-16.0) g/dL Hct 26.2 L 26.0 L 27.3 L (36.0-48.0) % Plt Count 132 L (150-450) 10^3/uL Neut # (Auto) 6.2 (1.4-6.5) 10^3/uL Lymph # (Auto) 2.2 (1.2-3.8) 10^3/uL [place] # (Auto) 0.8 (0.3-0.8) 10^3/uL Eos # (Auto) 0.2 (0.0-0.7) 10^3/uL Baso # (Auto) 0.0 (0.0-0.1) 10^3/uL 02/05/24 Range/Units 15:02 WBC (4.0-11.0) 10^3/uL RBC (4.20-5.40) 10^6/uL Hgb 8.3 L (12.0-16.0) g/dL Hct 26.2 L (36.0-48.0) % Plt Count (150-450) 10^3/uL Neut # (Auto) (1.4-6.5) 10^3/uL Lymph # (Auto) (1.2-3.8) 10^3/uL [place] # (Auto) (0.3-0.8) 10^3/uL Eos # (Auto) (0.0-0.7) 10^3/uL Baso # (Auto) (0.0-0.1) 10^3/uL Comprehensive Metabolic Panel 02/05/24 Range/Units 03:08 Sodium 141 (136-145) mmol/L Potassium 3.9 (3.5-5.1) mmol/L Chloride 106 (98-107) mmol/L Carbon Dioxide 29.1 (21.0-32.0) mmol/L BUN 19.0 H (7.0-18.0) mg/dL Creatinine 1.63 H (0.55-1.02) mg/dL Glucose 92 (74-106) mg/dL Calcium 8.1 L (8.5-10.1) mg/dL AST 18 (15-37) U/L ALT 12 L (14-59) U/L Alkaline Phosphatase 132 H (46-116) U/L Total Protein 5.7 L (6.4-8.2) g/dL Albumin 2.1 L (3.4-5.0) g/dL Intake and Output 02/05/24 02/05/24 02/05/24 07:59 15:59 23:59 Intake Total 120 / 120 1400 / 1400 Output Total 250 / 600 400 / 1300 900 / 1300 Balance -130 / -480 1000 / 100 -900 / 100 Intake: Oral 120 / 120 400 / 400 IV 1000 / 1000 Lactated Ringer's Solution 1, 1000 / 1000 000 ml @ 75 mls/hr IV .[id number] [facility] Rx#:[id number] Output: Urine 250 / 250 Stool 400 / 400 Urine Amount (Catheter) 900 / 900 2-way Urethral 900 / 900 Other: # Bowel Movements 300 Weight 107.3 kg EKG Interpretation ECG shows: atrial fibrillation (Atrial flutter with rapid ventricular response) Assessment and Plan Assessment and Plan (1) Rectal bleed: (2) Acute on chronic blood loss anemia: (3) BRANDEE (acute kidney injury): (4) Adenocarcinoma of rectum: (5) HFrEF (heart failure with reduced ejection fraction): (6) Pressure ulcer, sacrum: (7) Chronic a-fib: (8) CKD (chronic kidney disease) stage 3, GFR 30-59 ml/min: (9) DM2 (diabetes mellitus, type 2): (10) Hyperlipidemia: (11) Essential hypertension: (12) MDD (major depressive disorder): (13) GERD (gastroesophageal reflux disease): (14) Other hypotension: (15) Atrial flutter with rapid ventricular response: Plan 1. Atrial flutter with rapid ventricular response: Continue to treat the underlying etiology of bleeding and transfuse as needed. Holding anticoagulation therapy due to bleeding. Increase diltiazem to 240 mg once daily. 2. Acute on chronic systolic heart failure, significant volume overload on exam: Increase Bumex to 2 mg twice daily until she achieves euvolemia. Then go back to 2 mg once daily. GDMT for systolic heart failure is limited by her atrial fibrillation and hypotension. 3. Hypotension: Increase midodrine to 10 mg p.o. 3 times daily. 4. Follow-up in cardiology after discharge.
[2024-02-05 20:25] LABS: Glucometer 330 mg/dL (74-106)
[2024-02-05 21:36] LABS: Hematocrit 24.5 % (36.0-48.0); Hemoglobin 7.7 g/dL (12.0-16.0)
[2024-02-05] MEDS: ATORVASTATIN CALCIUM 40 MG TABLET PO (22:10)
[2024-02-06] VITALS (17 sets, daily range): BP systolic 103–126; BP diastolic 56–84; PULSE 92–113; TEMP 36.6–37.2; O2SAT 94–98
[2024-02-06 03:28] LABS: Basophils Percent Auto 0.3 % (0.2-2.0); Eosinophils Absolute Auto 0.2 10^3/uL (0.0-0.7); Eosinophils Percent Auto 1.8 % (0.9-7.0); Hematocrit 25.3 % (36.0-48.0); Immature Granulocytes Abs Auto 0.11 10^3/uL (0.00-0.03); Immature Granulocytes Pct Auto 1.1 % (0.0-0.5); Lymphocytes Absolute Auto 2.1 10^3/uL (1.2-3.8); Mean Corpuscular HGB Conc 31.6 g/dL (29.9-35.2); Mean Corpuscular Hemoglobin 29.2 pg (26.7-34.0); Mean Corpuscular Volume 92.3 fL (81.0-99.0); Mean Platelet Volume 10.7 fL (9.5-13.5); Monocytes Absolute Auto 1.1 10^3/uL (0.3-0.8); Monocytes Percent Auto 10.2 % (1.7-12.0); Neutrophils Percent Auto 66.6 % (43.0-75.0); Platelet Count 139 10^3/uL (150-450); Red Blood Count 2.74 10^6/uL (4.20-5.40); Red Cell Distribution Width 15.6 % (11.0-15.0); White Blood Count 10.4 10^3/uL (4.0-11.0)
[2024-02-06 03:47] LABS: Alanine Aminotransferase 13 U/L (14-59); Albumin Globulin Ratio 0.6; Albumin Level 2.1 g/dL (3.4-5.0); Alkaline Phosphatase 138 U/L (46-116); Anion Gap 10.7; Aspartate Amino Transferase 19 U/L (15-37); Bilirubin Total 0.5 mg/dL (0.2-1.0); Calcium 8.2 mg/dL (8.5-10.1); Carbon Dioxide 28.9 mmol/L (21.0-32.0); Chloride 104 mmol/L (98-107); Estimated GFR (African America 38 (>=60); Estimated GFR (Non-African Ame 31 (>=60); Globulin 3.7 g/dL; Glucose 67 mg/dL (74-106); Potassium 3.6 mmol/L (3.5-5.1); Sodium 140 mmol/L (136-145); Total Protein 5.8 g/dL (6.4-8.2)
[2024-02-06] MEDS: MAGNESIUM OXIDE 400 MG TABLET 800 MG PO ×3 (05:40→22:13)
[2024-02-06] MEDS: OMEPRAZOLE 20 MG CAPSULE.DR PO (05:41)
[2024-02-06 09:41] LABS: Hematocrit 26.3 % (36.0-48.0); Hemoglobin 8.3 g/dL (12.0-16.0)
[2024-02-06] MEDS: POTASSIUM CHLORIDE 10 MEQ ER TABLET 20 MEQ PO (09:50)
[2024-02-06] MEDS: MIDODRINE HCL 5 MG TABLET 10 MG PO ×3 (09:50→18:33)
[2024-02-06] MEDS: ALPRAZOLAM 0.25 MG TABLET PO (09:51)
[2024-02-06] MEDS: BUMETANIDE 1 MG TABLET 2 MG PO ×2 (09:51→22:13)
[2024-02-06] MEDS: SERTRALINE HCL 50 MG TABLET PO (09:51)
[2024-02-06] MEDS: DILTIAZEM HCL 240 MG CAP.ER.24H PO (09:51)
[2024-02-06] MEDS: FERROUS SULFATE 325 MG TABLET PO ×2 (09:51→22:13)
[2024-02-06] MEDS: AMMONIUM LACTATE 226 GM BOTTLE 1 APPLIC TOPICAL ×2 (09:51→22:14)
[2024-02-06] MEDS: TAMSULOSIN HCL 0.4 MG CAPSULE 0.400000000000000022 MG PO (09:51)
[2024-02-06] MEDS: METOPROLOL TARTRATE 100 MG TABLET PO ×2 (09:51→22:13)
[2024-02-06] MEDS: DOXYCYCLINE MONOHYDRATE 100 MG CAPSULE PO ×2 (09:51→22:13)
[2024-02-06] MEDS: INSULIN DETEMIR 300 UNIT/3 ML INSULN.PEN 10 UNIT SUBQ ×2 (09:52→22:17)
--- NOTE | 2024-02-06 10:27 | PT.DAILY ---
Physical Therapy Daily Note PT Daily Note/Assess Start: 02/06/24 10:22 Freq: Status: Active Protocol: Document 02/06/24 10:22 CE (Rec: 02/06/24 10:26 CE [id number]) Physical Therapy Daily Note/Assessment Time In/Time Out Time In 09:10 Time Out 09:23 Pain In Pain N/A Pain Out Pain N/A Subjective Subjective Pt supine upon arrival. Agitated with some news she got but with motivation she is somewhat agreeable to PT this morning. Therapeutic Activity Time Therapeutic Activity Minutes (minutes) 8 Therapeutic Activity Units 1 Therapeutic Activity Treatment Bed Mobility Ability Moderate Assist,Maximum Assist ,2 Person Assist Therapeutic Activity Comments Pt transfers from supine>sit EOB with ModA+2 to advance upper body and LEs to EOB. Pt sits EOB unsupported for 5 min . Min dizziness initially but does subside after about 1 min . Performs seated AP, LAQ and marches while sitting EOB without LOB while using UE support to maintain balance. Pt refuses to attempt to stand today - with motivation and education given for importance to try. Pt is returned to supine with MaxA+2 then total assist of 2 to scoot her up in bed. Pt remains supine with call light in reach and needs met. Total Physical Therapy Time Total Therapy Minutes 8 Total Physical Therapy Units 1 Summary Daily Note Summary Improved transfer ability from supine>sit but cont to need MAxA to return to supine. Fair dynamic seated balance with seated ex as she uses UE support on bed to maintain upright but no outside assist.
[2024-02-06 11:21] LABS: Glucometer 209 mg/dL (74-106)
[2024-02-06] MEDS: INSULIN ASPART 300 UNIT/3 ML PEN SUBQ ×2 (11:55→22:18)
--- NOTE | 2024-02-06 12:00 | CM.NOTE ---
Rounds made with Dr. Cameron. Continue with current plan of care.
--- NOTE | 2024-02-06 14:06 | SWNOTE1 ---
SW provided Normal with colostomy supplies that need ordered, SW sent over the size from [facility].
--- NOTE | 2024-02-06 14:13 | P.PN_ITS ---
<Statement entered by Shaikh Nisha MD - 02/06/24 14:46> This documentation has been reviewed and approved. Seen and examined. Case discussed with RN, Sol. Agree with clinical findings and treatment plan. Patient looks better. No active rectal bleeding noted today. LE edema has improved. HR is slightly above target but better. Hb trended down. Monitor H&H. Monitor I/O while on diuretic. Closely monitor renal function Progress Note: Subjective Subjective Interval history: 02/06/24 0900 The patient is resting comfortably in bed at the time of my exam. She is tearful regarding her diagnosis of rectal cancer and fearful of metastasis. After agreeing to see Dr Trivedi, colorectal surgeon in [facility], she was again saying she did not want to go to [place]. We discussed again the importance of following up as soon as can possibly be arranged and her best chance for close follow up is with Dr Trivedi. She agreed to see him after discharge. Her HR was better controlled last night after receiving an additional dose of diltiazem IR at dinner time, but has risen above 110 again this morning. She will receive her first dose of diltiazem 240 today and we will closely monitor her cardiac response and blood pressure. Cardiology increased her midodrine dosing to 10 mg TID and her BP has remained stable on this dose despite addition diltiazem. In addition, her po bumex was increased to BID dosing d/t persistent volume overload and her urine output increased overnight. Her peripheral edema is improved but persists at 2+ today. Plan to return to once daily dosing once euvolemia is attained. Her hgb continues to slowly drop to 8.0 on AM labs today, but she remains asymptomatic. We will monitor HH q6h today and transfuse PRBCs if indicated. DISPOSITION: Likely d/c in the next 24-48 hrs. Exam Constitutional Vital Signs, click to edit/add: Last Vital Signs Temp 97.9 F 02/06/24 09:40 Pulse 105 H 02/06/24 13:52 Resp 18 02/06/24 09:40 BP 120/71 02/06/24 09:40 Pulse Ox 98 02/06/24 09:40 O2 Del Method Room Air 02/06/24 09:40 Common normals: no apparent distress, oriented x3 and alert General appearance: cooperative Orientation/consciousness: Yes awake HENMT Common normals: normocephalic, head/scalp atraumatic and hearing grossly normal bilaterally Eye Common normals: PERRL, EOMs intact bilaterally, conjunctivae normal and no scler al icterus General eye: normal appearance of both eyes Chest Common normals: inspection of chest normal Chest: symmetrical chest wall rise Respiratory Common normals: normal respiratory effort, no use of accessory muscles and clear to auscultation bilaterally Effort & inspection: able to speak in complete sentences Auscultation: diminished lung sounds (BLL) Cardio Common normals: regular rate, S1 normal heart sound, S2 normal heart sound, no murmurs and peripheral pulses 2+ throughout Rhythm: abnormal rhythm irregularly irregular GI Common normals: Normal to inspection, nondistended, normoactive bowel sounds present, soft to palpation, non-tender and no hepatosplenomegaly Bladder/kidney exam: bladder normal to palpation Extremity Common normals: normal to inspection and no calf tenderness General: edema (1-2+ bilat insteps/ankles - improved); no clubbing and no cyanosis Neuro Common normals: CN's II-XII intact bilaterally, moves all extremities, no focal motor deficits and no sensory deficits noted Psych Common normals: mental status grossly normal Progress Note: Objective Labs Labs: Short CBC 02/05/24 02/05/24 02/06/24 Range/Units 15:02 21:14 03:07 WBC 10.4 (4.0-11.0) 10^3/uL Hgb 8.3 L 7.7 L 8.0 L (12.0-16.0) g/dL Hct 26.2 L 24.5 L 25.3 L (36.0-48.0) % Plt Count 139 L (150-450) 10^3/uL 02/06/24 Range/Units 09:02 WBC (4.0-11.0) 10^3/uL Hgb 8.3 L (12.0-16.0) g/dL Hct 26.3 L (36.0-48.0) % Plt Count (150-450) 10^3/uL BMP 02/06/24 03:07 Sodium 140 Potassium 3.6 Chloride 104 Carbon Dioxide 28.9 BUN 18.0 Creatinine 1.64 H Glucose 67 L Calcium 8.2 L Liver Function 02/06/24 Range/Units 03:07 Total Bilirubin 0.5 (0.2-1.0) mg/dL AST 19 (15-37) U/L ALT 13 L (14-59) U/L Alkaline Phosphatase 138 H (46-116) U/L Albumin 2.1 L (3.4-5.0) g/dL Progress Note: A&P Assessment and Plan (1) Rectal bleed: Assessment and Plan: Acute * Hgb 8.0, stable but slowly drifting down * 2/2 known rectal intramucosal adenocarcinoma that has not been treated/followed by oncology since diagnosis per biopsy at [facility] (11/28/23) * Mild to moderate persistent bleeding - no major hemorrhage at this time * Not on anticoagulation * Continue to hold home daily low dose Aspirin for now * Consult general surgery - we appreciate Dr Pretty's assistance with this pt's care * He defers to outpatient colorectal surgery management after discharge * Obtain appt with Dr Trivedi as soon as possible * Consult oncology - we appreciate Dr Arizmendi's assistance with this pt's care * Follow outpatient in 1-2 weeks * CBC, CMP daily (2) Acute on chronic blood loss anemia: Assessment and Plan: Acute on Chronic * Hgb 8.0, stable but slowly drifting down * Asymptomatic * Continue to monitor HH q6h x 12 more hrs * Transfuse for hgb < 7 or if significantly symptomatic (3) BRANDEE (acute kidney injury): Assessment and Plan: Acute * Suspect new baseline CKD 3b despite recent lab results from [facility] in November as below * Pt required hemodialysis d/t BRANDEE during her last admission and the lab values we have available may reflect post dialysis numbers and may not be baseline * CKD 2/3 on [facility] labs prior to discharge 12/28/23 * BUN 12-20 * Cr 0.99-1.11 * GFR 55-63 * Stable despite increased bumex dosing to BID * CMP daily (4) Adenocarcinoma of rectum: Assessment and Plan: Subacute * Confirmed by biopsy at [facility] 11/28/23 * Consult oncology - Dr Arizmendi * FU outpatient in 1-2 weeks * CT abd/pelvis not especially revealing - consider MRI pending clinical course * No evidence of metastatic disease to the liver or other abdominal structures * Pt has significant claustrophobia - will need anxiolytic prior to MRI if indicated by oncology or surgery * Plan outpatient follow up with Colorectal surgeon Dr John Trivedi as soon as possible after discharge - referral sent (5) HFrEF (heart failure with reduced ejection fraction): Assessment and Plan: Chronic * Ac on chronic CHF exacerbation * Recent 2D Echo on 11/07/23 at [facility] - LVEF 40-45%, mild MV regurg, mild TV regurg, No pericardial effusion * BNP still rising slightly today (11,060), but clinically is improved * Appears hypervolemic * Cardiology consult * Continue BID Bumex today (per cards), resume daily dosing once euvolemic * SOLITARIO hose daily while awake * Daily weights, strict I&O * BNP in AM (6) Pressure ulcer, sacrum: Assessment and Plan: Chronic * Consult wound care nurse * See note for recommendations * Turn q2h (7) Chronic a-fib: Assessment and Plan: Chronic * Poorly controlled rate since admission - afib/flutter * Increase home diltiazem to 240 mg (per cards), continue current metoprolol for rate control * Increase midodrine to 10 mg TID (per cards) to avoid hypotension w/ increased diltiazem dosing * Anticoagulation discontinued d/t GIB on previous hospitalization (8) CKD (chronic kidney disease) stage 3, GFR 30-59 ml/min: Assessment and Plan: Chronic * See BRANDEE (9) DM2 (diabetes mellitus, type 2): Assessment and Plan: Chronic * Continue home Levemir BID * ACHS glucometer checks * Med SSI for glucose correction * Med CC diet (10) Hyperlipidemia: Assessment and Plan: Chronic * Continue home statin (11) Essential hypertension: Assessment and Plan: Chronic * Continue home diltiazem/metoprolol (12) MDD (major depressive disorder): Assessment and Plan: Chronic * Continue home Zoloft (13) GERD (gastroesophageal reflux disease): Assessment and Plan: Chronic * Continue home PPI Urinary Catheter Management Urinary Catheter Management 2-way Urethral: Cath placed during this visit: yes Urethral indwelling: Yes Reason for continuing: stage 3/4 pressure injury Insertion date: 02/04/24 Insertion time: 07:46
--- NOTE | 2024-02-06 14:13 | PM.PN ---
Progress Note: Subjective Subjective Interval history: 02/06/24 0900 The patient is resting comfortably in bed at the time of my exam. She is tearful regarding her diagnosis of rectal cancer and fearful of metastasis. After agreeing to see Dr Trivedi, colorectal surgeon in [facility], she was again saying she did not want to go to [place]. We discussed again the importance of following up as soon as can possibly be arranged and her best chance for close follow up is with Dr Trivedi. She agreed to see him after discharge. Her HR was better controlled last night after receiving an additional dose of diltiazem IR at dinner time, but has risen above 110 again this morning. She will receive her first dose of diltiazem 240 today and we will closely monitor her cardiac response and blood pressure. Cardiology increased her midodrine dosing to 10 mg TID and her BP has remained stable on this dose despite addition diltiazem. In addition, her po bumex was increased to BID dosing d/t persistent volume overload and her urine output increased overnight. Her peripheral edema is improved but persists at 2+ today. Plan to return to once daily dosing once euvolemia is attained. Her hgb continues to slowly drop to 8.0 on AM labs today, but she remains asymptomatic. We will monitor HH q6h today and transfuse PRBCs if indicated. DISPOSITION: Likely d/c in the next 24-48 hrs. Exam Constitutional Vital Signs, click to edit/add: Last Vital Signs Temp 97.9 F 02/06/24 09:40 Pulse 105 H 02/06/24 13:52 Resp 18 02/06/24 09:40 BP 120/71 02/06/24 09:40 Pulse Ox 98 02/06/24 09:40 O2 Del Method Room Air 02/06/24 09:40 Common normals: no apparent distress, oriented x3 and alert General appearance: cooperative Orientation/consciousness: Yes awake HENMT Common normals: normocephalic, head/scalp atraumatic and hearing grossly normal bilaterally Eye Common normals: PERRL, EOMs intact bilaterally, conjunctivae normal and no scleral icterus General eye: normal appearance of both eyes Chest Common normals: inspection of chest normal Chest: symmetrical chest wall rise Respiratory Common normals: normal respiratory effort, no use of accessory muscles and clear to auscultation bilaterally Effort & inspection: able to speak in complete sentences Auscultation: diminished lung sounds (BLL) Cardio Common normals: regular rate, S1 normal heart sound, S2 normal heart sound, no murmurs and peripheral pulses 2+ throughout Rhythm: abnormal rhythm irregularly irregular GI Common normals: Normal to inspection, nondistended, normoactive bowel sounds present, soft to palpation, non-tender and no hepatosplenomegaly Bladder/kidney exam: bladder normal to palpation Extremity Common normals: normal to inspection and no calf tenderness General: edema (1-2+ bilat insteps/ankles - improved); no clubbing and no cyanosis Neuro Common normals: CN's II-XII intact bilaterally, moves all extremities, no focal motor deficits and no sensory deficits noted Psych Common normals: mental status grossly normal Progress Note: Objective Labs Labs: Short CBC 02/05/24 02/05/24 02/06/24 Range/Units 15:02 21:14 03:07 WBC 10.4 (4.0-11.0) 10^3/uL Hgb 8.3 L 7.7 L 8.0 L (12.0-16.0) g/dL Hct 26.2 L 24.5 L 25.3 L (36.0-48.0) % Plt Count 139 L (150-450) 10^3/uL 02/06/24 Range/Units 09:02 WBC (4.0-11.0) 10^3/uL Hgb 8.3 L (12.0-16.0) g/dL Hct 26.3 L (36.0-48.0) % Plt Count (150-450) 10^3/uL BMP 02/06/24 03:07 Sodium 140 Potassium 3.6 Chloride 104 Carbon Dioxide 28.9 BUN 18.0 Creatinine 1.64 H Glucose 67 L Calcium 8.2 L Liver Function 02/06/24 Range/Units 03:07 Total Bilirubin 0.5 (0.2-1.0) mg/dL AST 19 (15-37) U/L ALT 13 L (14-59) U/L Alkaline Phosphatase 138 H (46-116) U/L Albumin 2.1 L (3.4-5.0) g/dL Progress Note: A&P Assessment and Plan (1) Rectal bleed: Assessment and Plan: Acute Hgb 8.0, stable but slowly drifting down 2/2 known rectal intramucosal adenocarcinoma that has not been treated/followed by oncology since diagnosis per biopsy at [facility] (11/28/23) Mild to moderate persistent bleeding - no major hemorrhage at this time Not on anticoagulation Continue to hold home daily low dose Aspirin for now Consult general surgery - we appreciate Dr Pretty's assistance with this pt's care He defers to outpatient colorectal surgery management after discharge Obtain appt with Dr Trivedi as soon as possible Consult oncology - we appreciate Dr Arizmendi's assistance with this pt's care Follow outpatient in 1-2 weeks CBC, CMP daily (2) Acute on chronic blood loss anemia: Assessment and Plan: Acute on Chronic Hgb 8.0, stable but slowly drifting down Asymptomatic Continue to monitor HH q6h x 12 more hrs Transfuse for hgb < 7 or if significantly symptomatic (3) BRANDEE (acute kidney injury): Assessment and Plan: Acute Suspect new baseline CKD 3b despite recent lab results from [facility] in November as below Pt required hemodialysis d/t BRANDEE during her last admission and the lab values we have available may reflect post dialysis numbers and may not be baseline CKD 2/3 on [facility] labs prior to discharge 12/28/23 BUN 12-20 Cr 0.99-1.11 GFR 55-63 Stable despite increased bumex dosing to BID CMP daily (4) Adenocarcinoma of rectum: Assessment and Plan: Subacute Confirmed by biopsy at [facility] 11/28/23 Consult oncology - Dr Arizmendi FU outpatient in 1-[address] abd/pelvis not especially revealing - consider MRI pending clinical course No evidence of metastatic disease to the liver or other abdominal structures Pt has significant claustrophobia - will need anxiolytic prior to MRI if indicated by oncology or surgery Plan outpatient follow up with Colorectal surgeon Dr John Trivedi as soon as possible after discharge - referral sent (5) HFrEF (heart failure with reduced ejection fraction): Assessment and Plan: Chronic Ac on chronic CHF exacerbation Recent 2D Echo on 11/07/23 at [facility] - LVEF 40-45%, mild MV regurg, mild TV regurg, No pericardial effusion BNP still rising slightly today (11,060), but clinically is improved Appears hypervolemic Cardiology consult Continue BID Bumex today (per cards), resume daily dosing once euvolemic SOLITARIO hose daily while awake Daily weights, strict I&O BNP in AM (6) Pressure ulcer, sacrum: Assessment and Plan: Chronic Consult wound care nurse See note for recommendations Turn q2h (7) Chronic a-fib: Assessment and Plan: Chronic Poorly controlled rate since admission - afib/flutter Increase home diltiazem to 240 mg (per cards), continue current metoprolol for rate control Increase midodrine to 10 mg TID (per cards) to avoid hypotension w/ increased diltiazem dosing Anticoagulation discontinued d/t GIB on previous hospitalization (8) CKD (chronic kidney disease) stage 3, GFR 30-59 ml/min: Assessment and Plan: Chronic See BRANDEE (9) DM2 (diabetes mellitus, type 2): Assessment and Plan: Chronic Continue home Levemir BID ACHS glucometer checks Med SSI for glucose correction Med CC diet (10) Hyperlipidemia: Assessment and Plan: Chronic Continue home statin (11) Essential hypertension: Assessment and Plan: Chronic Continue home diltiazem/metoprolol (12) MDD (major depressive disorder): Assessment and Plan: Chronic Continue home Zoloft (13) GERD (gastroesophageal reflux disease): Assessment and Plan: Chronic Continue home PPI Urinary Catheter Management Urinary Catheter Management 2-way Urethral: Cath placed during this visit: yes Urethral indwelling: Yes Reason for continuing: stage 3/4 pressure injury Insertion date: 02/04/24 Insertion time: 07:46
[2024-02-06 15:07] LABS: Hematocrit 26.2 % (36.0-48.0); Hemoglobin 8.3 g/dL (12.0-16.0)
[2024-02-06 16:16] LABS: Glucometer 140 mg/dL (74-106)
[2024-02-06 20:55] LABS: Glucometer 179 mg/dL (74-106)
[2024-02-06] MEDS: ATORVASTATIN CALCIUM 40 MG TABLET PO (22:13)
[2024-02-07] VITALS (10 sets, daily range): BP systolic 92–108; BP diastolic 61–73; PULSE 88–108; TEMP 36.6–37; O2SAT 94–98
--- NOTE | 2024-02-07 01:16 | PC.NURSE ---
Dressing change to sacrum and abdomen. Patient tolerated well. encouraged patient to be positioned on side to relieve pressure on scarum. Patient refused but agreed to pillow under right side
[2024-02-07 04:59] LABS: Basophils Percent Auto 0.3 % (0.2-2.0); Eosinophils Absolute Auto 0.2 10^3/uL (0.0-0.7); Eosinophils Percent Auto 2.3 % (0.9-7.0); Hematocrit 24.6 % (36.0-48.0); Hemoglobin 7.8 g/dL (12.0-16.0); Immature Granulocytes Abs Auto 0.03 10^3/uL (0.00-0.03); Immature Granulocytes Pct Auto 0.3 % (0.0-0.5); Lymphocytes Absolute Auto 1.9 10^3/uL (1.2-3.8); Lymphocytes Percent Auto 20.8 % (20.5-60.0); Mean Corpuscular HGB Conc 31.7 g/dL (29.9-35.2); Mean Corpuscular Hemoglobin 29.2 pg (26.7-34.0); Mean Corpuscular Volume 92.1 fL (81.0-99.0); Mean Platelet Volume 10.9 fL (9.5-13.5); Monocytes Absolute Auto 0.8 10^3/uL (0.3-0.8); Monocytes Percent Auto 8.9 % (1.7-12.0); Neutrophils Absolute Auto 6.1 10^3/uL (1.4-6.5); Neutrophils Percent Auto 67.4 % (43.0-75.0); Platelet Count 127 10^3/uL (150-450); Red Blood Count 2.67 10^6/uL (4.20-5.40); Red Cell Distribution Width 15.5 % (11.0-15.0); White Blood Count 9.1 10^3/uL (4.0-11.0)
[2024-02-07 05:27] LABS: Alanine Aminotransferase 10 U/L (14-59); Albumin Globulin Ratio 0.6; Alkaline Phosphatase 132 U/L (46-116); Anion Gap 11.8; Aspartate Amino Transferase 18 U/L (15-37); BUN Creatinine Ratio 11.8; Bilirubin Total 0.5 mg/dL (0.2-1.0); Calcium 8.1 mg/dL (8.5-10.1); Carbon Dioxide 27.6 mmol/L (21.0-32.0); Chloride 104 mmol/L (98-107); Estimated GFR (African America 41 (>=60); Estimated GFR (Non-African Ame 34 (>=60); Globulin 3.6 g/dL; Glucose 84 mg/dL (74-106); Potassium 3.4 mmol/L (3.5-5.1); Sodium 140 mmol/L (136-145); Total Protein 5.6 g/dL (6.4-8.2)
[2024-02-07] MEDS: MAGNESIUM OXIDE 400 MG TABLET 800 MG PO ×2 (05:38→13:50)
[2024-02-07] MEDS: OMEPRAZOLE 20 MG CAPSULE.DR PO (05:38)
[2024-02-07 08:06] LABS: Glucometer 94 mg/dL (74-106)
[2024-02-07] MEDS: FERROUS SULFATE 325 MG TABLET PO (08:30)
[2024-02-07] MEDS: POTASSIUM CHLORIDE 10 MEQ ER TABLET 20 MEQ PO (08:30)
[2024-02-07] MEDS: DOXYCYCLINE MONOHYDRATE 100 MG CAPSULE PO (08:30)
[2024-02-07] MEDS: METOPROLOL TARTRATE 100 MG TABLET PO (08:30)
[2024-02-07] MEDS: AMMONIUM LACTATE 226 GM BOTTLE 1 APPLIC TOPICAL (08:31)
[2024-02-07] MEDS: TAMSULOSIN HCL 0.4 MG CAPSULE 0.400000000000000022 MG PO (08:31)
[2024-02-07] MEDS: BUMETANIDE 1 MG TABLET 2 MG PO (08:31)
[2024-02-07] MEDS: MIDODRINE HCL 5 MG TABLET 10 MG PO ×2 (08:31→13:52)
[2024-02-07] MEDS: DILTIAZEM HCL 240 MG CAP.ER.24H PO (08:31)
[2024-02-07] MEDS: SERTRALINE HCL 50 MG TABLET PO (08:31)
[2024-02-07] MEDS: INSULIN DETEMIR 300 UNIT/3 ML INSULN.PEN 10 UNIT SUBQ (08:47)
--- NOTE | 2024-02-07 10:27 | OT.DAILY ---
Occupational Therapy Daily Note OT Inpatient Daily Visit Note Start: 02/05/24 11:11 Freq: Status: Active Protocol: Document 02/07/24 09:00 JACY (Rec: 02/07/24 10:27 JACY [id number]) OT Visit Details Time In/Time Out Time In 09:46 Time Out 10:15 OT Treatment Plan Subjective Subjective Pt reports stomach is not feeling good and she feels she is going to get sick. Objective Objective Pt able to complete bed mobility with vping on and ed on positioning. Able to move self head to bed using bed rails. Decline sitting EOB due to stomach not feeling well. UE ROM while in bed with no pain or irritation. Able to complete ROM WFL Plan Plan Cont with current POC to increase functional ability OT Billing Total Treatment Time Total treatment minutes 24 Total timed treatment Minutes 24 Employee Benefits Director Timed Codes Therapeutic activity minutes (minutes) 24
--- NOTE | 2024-02-07 10:42 | OT.DAILY ---
Occupational Therapy Daily Note OT Inpatient Daily Visit Note Start: 02/05/24 11:11 Freq: Status: Active Protocol: Document 02/07/24 09:00 JACY (Rec: 02/07/24 10:27 JACY [id number]) OT Visit Details Time In/Time Out Time In 09:46 Time Out 10:15 OT Treatment Plan Subjective Subjective Pt reports stomach is not feeling good and she feels she is going to get sick. Objective Objective Pt able to complete bed mobility with vping on and ed on positioning. Able to move self head to bed using bed rails. Decline sitting EOB due to stomach not feeling well. UE ROM while in bed with no pain or irritation. Able to complete ROM WFL Plan Plan Cont with current POC to increase functional ability OT Billing Total Treatment Time Total treatment minutes 24 Total timed treatment Minutes 24 Forklift Truck Mechanic Timed Codes Therapeutic activity minutes (minutes) 24 Edit Result 02/07/24 09:00 JACY (Rec: 02/07/24 10:42 JACY [id number]) OT Treatment Plan Assessment Assessment Pt alma in bed stretches with no increase of stomach irritation OT Electronic Integrated Systems Mechanic Timed Codes Therapeutic activity units 2
--- NOTE | 2024-02-07 10:52 | SWNOTE1 ---
SW completed HENS. Pt will be discharged to [facility] today.
--- NOTE | 2024-02-07 11:08 | CM.NOTE ---
Rounds made with Dr. Cameron, pt will discharge to [facility] for skilled therapy.
[2024-02-07 11:36] LABS: Glucometer 120 mg/dL (74-106)
--- NOTE | 2024-02-07 12:13 | PM.DS1 ---
DS: Providers Provider Date of admission: 02/04/24 15:19 Primary care physician: Non-Staff PhysicianMD Admitting clinician: Shaikh Nisha Attending physician on admission: Shaikh Nisha Consults: 02/04/24 14:53 Consult to Oncology Routine Consulting Provider: Delilah Arizmendi Reason for consultation: rectal adenocarcinoma Has provider been notified: No 02/04/24 15:48 Consult to Wound Care Routine Consulting Provider: Galileo Choudhury Reason for consultation: large coccyx decub w/ tunneling 02/04/24 16:42 Consult to General Surgeon Routine Consulting Provider: Tejas Pretty Reason for consultation: Rectal bleeding from rectal mass Has provider been notified: No 02/04/24 17:04 Occupational Therapy Eval and Treat Routine Reason for consultation: Weakness Has provider been notified: No Physical Therapy Eval and Treat Routine Reason for consultation: Weakness Has provider been notified: No 02/05/24 07:45 Consult to Cardiology Routine Reason for consultation: afib w/ RVR, uncontrolled rate w/ current regimen Has provider been notified: No Attending physician on discharge: Shaikh Nisha Discharging clinician: Shaikh Nisha Anticipated date of discharge: 02/07/24 DS: Diagnosis Discharge Diagnosis (1) Rectal bleed: (2) Acute on chronic blood loss anemia: (3) BRANDEE (acute kidney injury): (4) Adenocarcinoma of rectum: (5) HFrEF (heart failure with reduced ejection fraction): (6) Pressure ulcer, sacrum: Qualifiers: Pressure injury stage: pressure injury of deep tissue Qualified Code(s): L89.156 - Pressure-induced deep tissue damage of sacral region (7) Chronic a-fib: (8) CKD (chronic kidney disease) stage 3, GFR 30-59 ml/min: Qualifiers: Chronic kidney disease stage 3 subtype: stage 3a (GFR 45-59) Qualified Code(s): N18.31 - Chronic kidney disease, stage 3a (9) DM2 (diabetes mellitus, type 2): Qualifiers: Chronic kidney disease stage: stage 3 (moderate) Chronic kidney disease stage 3 subtype: stage 3a (GFR 45-59) Diabetes mellitus complication detail: with chronic kidney disease Diabetes mellitus complication status: with kidney complications Diabetes mellitus prison insulin use: without prison use Qualified Code(s): E11.22 - Type 2 diabetes mellitus with diabetic chronic kidney disease; N18.31 - Chronic kidney disease, stage 3a (10) Hyperlipidemia: Qualifiers: Hyperlipidemia type: unspecified Qualified Code(s): E78.5 - Hyperlipidemia, unspecified (11) Essential hypertension: (12) MDD (major depressive disorder): Qualifiers: Active/Remission status: in full remission Major depression recurrence: recurrent Qualified Code(s): F33.42 - Major depressive disorder, recurrent, in full remission (13) GERD (gastroesophageal reflux disease): Qualifiers: Esophagitis presence: without esophagitis Qualified Code(s): K21.9 - Gastro-esophageal reflux disease without esophagitis DS: Summary Hospital Course Hospital Course: 68-year-old female was brought over for rectal bleeding. She had recent history of colectomy with colostomy in place and was in rehab Nursing staff at rehab facility noted bright red blood per rectum for which she was sent to [facility] ER. Workup in ER revealed rectal bleeding for which she was admitted to the hospital for further care. Patient had recently been diagnosed with rectal adenocarcinoma for which she has not had any oncologic workup. She was evaluated by oncology at [facility] and is established with him as outpatient now who is going to pursue oncology workup for her. She was evaluated by general surgery and since her hemoglobin remained stable with no need for blood transfusion, decision was made to forego any endoscopic evaluation while she is here and defer further management to colorectal surgeon because of her complicated history and history of rectal adenocarcinoma. Patient developed A-fib with RVR during hospital stay for which cardiology was consulted. Her heart rate is now better controlled. Patient is stable medically for discharge to rehab facility. Status at Discharge Functional status at discharge: wheelchair bound Overall status at discharge: patient is progressing back to baseline Time Spent with Patient Time attestation: Total time spent providing and/or coordinating discharge services: Time spent: greater than 30 minutes Exam Constitutional Vital Signs, click to edit/add: Last Vital Signs Temp 97.9 F 02/07/24 08:00 Pulse 97 H 02/07/24 11:49 Resp 18 02/07/24 08:00 BP 92/61 02/07/24 08:00 Pulse Ox 97 02/07/24 09:00 O2 Del Method Room Air 02/07/24 08:00 Common normals: no apparent distress, oriented x3 and alert General appearance: cooperative Orientation/consciousness: Yes awake HENMT Common normals: normocephalic, head/scalp atraumatic and hearing grossly normal bilaterally Chest Common normals: inspection of chest normal Chest: symmetrical chest wall rise Respiratory Common normals: normal respiratory effort, no use of accessory muscles and clear to auscultation bilaterally Effort & inspection: able to speak in complete sentences Auscultation: diminished lung sounds (BLL) Cardio Common normals: regular rate, S1 normal heart sound, S2 normal heart sound, no murmurs and peripheral pulses 2+ throughout Rhythm: abnormal rhythm irregularly irregular GI Common normals: Normal to inspection, nondistended, normoactive bowel sounds present, soft to palpation, non-tender and no hepatosplenomegaly Bladder/kidney exam: bladder normal to palpation Extremity Common normals: normal to inspection and no calf tenderness Neuro Common normals: moves all extremities, no focal motor deficits and no sensory deficits noted Psych Common normals: mental status grossly normal DS: Data Data Completed and Pending Labs on day of discharge: Labs from last 24 hours 02/07/24 02/07/24 02/07/24 11:35 08:05 04:31 WBC 9.1 RBC 2.67 L Hgb 7.8 L Hct 24.6 L MCV 92.1 MCH 29.2 MCHC 31.7 RDW 15.5 H Plt Count 127 L MPV 10.9 Neut % (Auto) 67.4 Lymph % (Auto) 20.8 Gentry % (Auto) 8.9 Eos % (Auto) 2.3 Baso % (Auto) 0.3 Neut # (Auto) 6.1 Lymph # (Auto) 1.9 Gentry # (Auto) 0.8 Eos # (Auto) 0.2 Baso # (Auto) 0.0 Abs Immat Gran (auto) 0.03 Imm/Tot Granulo (auto) 0.3 Sodium 140 Potassium 3.4 L Chloride 104 Carbon Dioxide 27.6 Anion Gap 11.8 BUN 18.0 Creatinine 1.52 H Est GFR ( Amer) 41 L Est GFR (Non-Af Amer) 34 L BUN/Creatinine Ratio 11.8 Glucose 84 Calcium 8.1 L Total Bilirubin 0.5 AST 18 ALT 10 L Alkaline Phosphatase 132 H NT-Pro-B Natriuret Pep 7798.0 H* Total Protein 5.6 L Albumin 2.0 L Globulin 3.6 Albumin/Globulin Ratio 0.6 POC Glucose 120 H 94 02/06/24 02/06/24 02/06/24 20:53 16:15 15:00 WBC RBC Hgb 8.3 L Hct 26.2 L MCV MCH MCHC RDW Plt Count MPV Neut % (Auto) Lymph % (Auto) Gentry % (Auto) Eos % (Auto) Baso % (Auto) Neut # (Auto) Lymph # (Auto) Gentry # (Auto) Eos # (Auto) Baso # (Auto) Abs Immat Gran (auto) Imm/Tot Granulo (auto) Sodium Potassium Chloride Carbon Dioxide Anion Gap BUN Creatinine Est GFR ( Amer) Est GFR (Non-Af Amer) BUN/Creatinine Ratio Glucose Calcium Total Bilirubin AST ALT Alkaline Phosphatase NT-Pro-B Natriuret Pep Total Protein Albumin Globulin Albumin/Globulin Ratio POC Glucose 179 H 140 H Discharge Plan Discharge Disposition: Xfer SNF Discharge Medications: Continued polyethylene glycol 3350 [Miralax] 17 gram powder in packet 17 g PO DAILY PRN (Reason: constipation) magnesium oxide 400 mg magnesium tablet 800 mg PO TID acetaminophen 500 mg capsule 1,000 mg PO Q6H PRN (Reason: fever or pain) ascorbic acid (vitamin C) [Acerola C] 500 mg tablet,chewable 500 mg PO BID atorvastatin 40 mg tablet 40 mg PO .QHS bumetanide 2 mg tablet 2 mg PO DAILY diltiazem HCl [Cardizem CD] 180 mg capsule,extended release 24hr 180 mg PO DAILY ergocalciferol (vitamin D2) 1,250 mcg (50,000 unit) capsule 50,000 unit PO QWEEK Rx Instructions: EVERY SATURDAY ferrous sulfate [FeroSul] 325 mg (65 mg iron) tablet 325 mg PO BID insulin glargine 100 unit/mL (3 mL) insulin pen 10 unit subcut BID metoprolol tartrate [Lopressor] 100 mg tablet 100 mg PO BID midodrine 5 mg tablet 5 mg PO TIDWM Rx Instructions: HOLD IF SBP > 130 do not give last dose of day after 6PM or within 4 hrs of bedtime multivitamin [Daily Multi-Vitamin] Tablet 1 tab PO DAILY insulin aspart U-100 [Novolog FlexPen U-100 Insulin] 100 unit/mL (3 mL) insulin pen 4 - 14 sliding scale dose subcut ACHS Rx Instructions: 100-149 0 UNITS 150-199 4 UNITS 200-249 7 UNITS 250-299 10 UNITS 300-349 12 UNITS 350-400 14 UNITS oxycodone 5 mg tablet 5 mg PO Q6H PRN (Reason: pain) Patient Comments: 1 tablet for pain 4-04/08 2 tablets for pain -07/09 pantoprazole 20 mg tablet,delayed release (DR/EC) 20 mg PO DAILY potassium chloride [Klor-Con] 20 mEq packet 20 meq PO DAILY sertraline [Zoloft] 50 mg tablet 50 mg PO DAILY tamsulosin [Flomax] 0.4 mg capsule 0.4 mg PO DAILY zinc sulfate 50 mg zinc (220 mg) capsule 50 mg PO DAILY Patient Comments: 01/25/24-02/08/24 FOR 14 DAYS ondansetron HCl 4 mg tablet 4 mg PO Q6H PRN (Reason: nausea and vomiting) Discontinued aspirin 81 mg tablet,chewable 81 mg PO DAILY doxycycline hyclate 100 mg capsule 100 mg PO BID Print Language: Georgian Forms: Portal Instructions Follow Up Appointments: February 10 @ 1:45pm with Dr. Arizmendi at [facility] [phone], ext. [phone] bring all current medications in their original bottles to this appt. Dr. Glenn Trivedi' office (colon and rectal surgeon - [place]) will be calling the patient and [facility] directly to schedule an appt. [phone]
--- NOTE | 2024-02-07 13:20 | SWNOTE1 ---
Pt is going to [facility] skilled for rehab. SW sent over dc med rec and dc summary to [facility]. MARILOU set up [facility] for 1:45pm. SW let nursing and [facility] know of time. SW took packet out to med/surge floor.
== END 2024-02-07 14:22 | DRG 374 ==
LOC: ER 14:25 → MS 15:40
PROVIDERS: Admitting Provider Nurse Practitioner; Emergency Provider Emergency Medicine; Visit Provider Internal Medicine
DX: C20 Malignant neoplasm of rectum (principal); I50.23 Acute on chronic systolic (congestive) heart failure; L89.154 Pressure ulcer of sacral region, stage 4; D62 Acute posthemorrhagic anemia; N17.9 Acute kidney failure, unspecified; I13.0 Hypertensive heart and chronic kidney disease with heart failure and stage 1 through stage 4 chronic kidney disease, or unspecified chronic kidney disease; I48.19 Other persistent atrial fibrillation; I48.92 Unspecified atrial flutter; E11.22 Type 2 diabetes mellitus with diabetic chronic kidney disease; I95.9 Hypotension, unspecified; E78.5 Hyperlipidemia, unspecified; I25.10 Atherosclerotic heart disease of native coronary artery without angina pectoris; N18.31 Chronic kidney disease, stage 3a; F33.42 Major depressive disorder, recurrent, in full remission; K21.9 Gastro-esophageal reflux disease without esophagitis; Z93.3 Colostomy status; Z87.891 Personal history of nicotine dependence; Z91.018 Allergy to other foods; Z90.49 Acquired absence of other specified parts of digestive tract; Z83.3 Family history of diabetes mellitus; Z82.49 Family history of ischemic heart disease and other diseases of the circulatory system; Z79.82 Long term (current) use of aspirin; Z79.899 Other long term (current) drug therapy; Z79.4 Long term (current) use of insulin; Z87.19 Personal history of other diseases of the digestive system
CPT/HCPCS: 36415; 51702; 70450; 72125; 74176; 80053; 82728; 82948; 83540; 83550; 83880; 84484; 85014; 85018; 85025; 85610; 85730; 93005; 97162; 97165; 97530; 99285

== ENCOUNTER 2024-02-11 07:30 | Outpatient (RCR) | payer MEDICARE, OTHER, SELFPAY ==
[2024-02-11 14:20] LABS: Basophils Percent Auto 0.3 % (0.2-2.0); Eosinophils Absolute Auto 0.3 10^3/uL (0.0-0.7); Eosinophils Percent Auto 2.7 % (0.9-7.0); Hematocrit 27.7 % (36.0-48.0); Hemoglobin 8.8 g/dL (12.0-16.0); Immature Granulocytes Abs Auto 0.03 10^3/uL (0.00-0.03); Immature Granulocytes Pct Auto 0.3 % (0.0-0.5); Lymphocytes Absolute Auto 1.8 10^3/uL (1.2-3.8); Mean Corpuscular HGB Conc 31.8 g/dL (29.9-35.2); Mean Corpuscular Hemoglobin 29.2 pg (26.7-34.0); Mean Platelet Volume 10.9 fL (9.5-13.5); Monocytes Absolute Auto 0.8 10^3/uL (0.3-0.8); Monocytes Percent Auto 7.3 % (1.7-12.0); Neutrophils Absolute Auto 7.5 10^3/uL (1.4-6.5); Neutrophils Percent Auto 72.4 % (43.0-75.0); Platelet Count 162 10^3/uL (150-450); Red Blood Count 3.01 10^6/uL (4.20-5.40); Red Cell Distribution Width 15.4 % (11.0-15.0); Reticulocyte Pct Auto 2.45 % (0.60-3.10); White Blood Count 10.4 10^3/uL (4.0-11.0)
[2024-02-11 14:25] LABS: Erythrocyte Sedimentation Rate 55 mm/hr (<=30)
[2024-02-11 14:36] LABS: Alanine Aminotransferase 16 U/L (14-59); Albumin Globulin Ratio 0.5; Albumin Level 2.3 g/dL (3.4-5.0); Alkaline Phosphatase 144 U/L (46-116); Anion Gap 12.6; Aspartate Amino Transferase 26 U/L (15-37); BUN Creatinine Ratio 10.9; Bilirubin Total 0.7 mg/dL (0.2-1.0); C Reactive Protein 2.02 mg/dL (<=0.50); Calcium 8.2 mg/dL (8.5-10.1); Carbon Dioxide 27.3 mmol/L (21.0-32.0); Chloride 102 mmol/L (98-107); Estimated GFR (African America 43 (>=60); Estimated GFR (Non-African Ame 36 (>=60); Globulin 4.2 g/dL; Glucose 172 mg/dL (74-106); Lactate Dehydrogenase 389 U/L (81-234); Potassium 3.9 mmol/L (3.5-5.1); Sodium 138 mmol/L (136-145); Total Protein 6.5 g/dL (6.4-8.2)
[2024-02-11 14:49] LABS: Percent Iron Saturation 21.3 %
[2024-02-12 14:10] LABS: CEA 3.9 ng/mL (0.0-4.7)
== END 2024-02-28 23:59 | disposition home or self-care (01) ==
LOC: INF 07:30
PROVIDERS: Visit Provider Internal Medicine Hematology & Oncology
DX: C20 Malignant neoplasm of rectum (principal); D64.9 Anemia, unspecified; Z93.3 Colostomy status; N18.9 Chronic kidney disease, unspecified
CPT/HCPCS: 36415; 80053; 82378; 82728; 83540; 83550; 83615; 85025; 85045; 85652; 86140; G0463

== ENCOUNTER 2024-02-24 15:36 | Inpatient (IN) | payer MEDICARE, OTHER, SELFPAY ==
[2024-02-24] VITALS (74 sets, daily range): BP systolic 65–125; BP diastolic 53–94; PULSE 94–138; TEMP 36.3–36.5; O2SAT 90–100; BMI 38.2; BMI 39.8
--- NOTE | 2024-02-24 15:44 | ECG_ITS ---
[facility] Test Date: 2024-02-24 Pat Name: HARRIS CASTREJON Department: Room: - Gender: Female Medical Insurance Coding Specialist: : 1955 Requested By: [id number] Order Number: [id number] Reading MD: ROMINA BRISENO Measurements Intervals Douglas Rate: 113 P: -63615 MT: -30847 QRS: 101 QRSD: 86 T: -8 QT: 312 QTc: 379 Interpretive Statements 93373 Atrial fibrillation with rapid ventricular response 3532 Lateral myocardial infarction, probably recent 8102 Low QRS voltage in chest leads 9150 abnormal ECG Compared to ECG 02/02/2024 16:58:30 Myocardial infarct finding now present Atrial flutter no longer present Aberrant conduction of supraventricular beat(s) no longer present ST (T wave) deviation no longer present Possible ischemia no longer present Electronically Signed On 02-25-2024 8:53:04 EDT by ROMINA BRISENO
--- NOTE | 2024-02-24 15:44 | XR_ITS ---
The [address] [address] Patient Name: HARRIS CASTREJON MRN: [id number] date: 1955 Sex: F Assigned Patient Location: ER Current Patient Location: ER Accession/Order Number: [id number] Exam Date: 02/24/2024 16:00 Report Date: 02/24/2024 16:42 At the request of: HAFSA WRIGHT Procedure: XR chest 1V EXAM: XR chest 1V at 1558 hours HISTORY: Shortness of breath COMPARISON: None. TECHNIQUE: AP semiportable chest x-ray FINDINGS: The heart is enlarged with mild prominence of the central pulmonary vasculature, without overt cardiac decompensation. No acute infiltrate, effusion or pneumothorax is identified, although very small bilateral effusions are difficult to entirely exclude. The osseous structures are grossly intact. XR/XR chest 1V IMPRESSION: Cardiomegaly without overt cardiac decompensation. A focal infiltrate is not identified at this time. Electronically authenticated by: MITRA MONTGOMERY Date: 02/24/2024 16:42
--- NOTE | 2024-02-24 15:45 | ED.GENADUL1 ---
HPI HPI - General Adult General Chief complaint: Arrhythmia/Palpitations Stated complaint: OTHER Time Seen by Provider: 02/24/24 15:44 History of Present Illness HPI narrative: Patient is a 68-year-old female who presents to the emergency department from the [facility] where she is a resident for evaluation of tachycardia that was noticed by staff. She has a history of A-fib although she states she is not anticoagulated. EMS believes that the patient is in normal sinus rhythm. She has an upcoming cardiac appointment as an outpatient this week. She denies chest pain. She has been feeling mildly short of breath, she states yesterday she was not feeling well but has not had any fevers, vomiting. She has a wound to the sacral area that is monitored by [facility] staff. She denies any new other focal medical complaints since yesterday. She has a colostomy to the left abdomen and a chronic indwelling Puga catheter as well. Related Data Home Medications ?Medication ?Instructions ?Recorded ?Confirmed acetaminophen 500 mg capsule 1,000 mg PO Q6H PRN fever or pain 02/02/24 02/04/24 ascorbic acid (vitamin C) 500 mg 500 mg PO BID 02/02/24 02/04/24 chewable tablet (Acerola C) atorvastatin 40 mg tablet 40 mg PO .QHS 02/02/24 02/04/24 bumetanide 2 mg tablet 2 mg PO DAILY 02/02/24 02/04/24 diltiazem HCl 180 mg 180 mg PO DAILY 02/02/24 02/04/24 capsule,extended release 24 hr (Cardizem CD) ergocalciferol (vitamin D2) 1,250 50,000 unit PO QWEEK 02/02/24 02/04/24 mcg (50,000 unit) capsule ferrous sulfate 325 mg (65 mg 325 mg PO BID 02/02/24 02/04/24 iron) tablet (FeroSul) insulin aspart U-100 100 unit/mL 4 - 14 sliding scale dose subcut 02/02/24 02/04/24 (3 mL) subcutaneous pen (Novolog ACHS FlexPen U-100 Insulin aspart) insulin glargine 100 unit/mL (3 10 unit subcut BID 02/02/24 02/04/24 mL) subcutaneous pen metoprolol tartrate 100 mg tablet 100 mg PO BID 02/02/24 02/04/24 (Lopressor) midodrine 5 mg tablet 5 mg PO TIDWM 02/02/24 02/04/24 multivitamin (Daily Multi-Vitamin 1 tab PO DAILY 02/02/24 02/04/24 tablet) ondansetron HCl 4 mg tablet 4 mg PO Q6H PRN nausea and vomiting 02/02/24 02/04/24 oxycodone 5 mg tablet 5 mg PO Q6H PRN pain 02/02/24 02/04/24 pantoprazole 20 mg tablet,delayed 20 mg PO DAILY 02/02/24 02/04/24 release potassium chloride 20 mEq oral 20 meq PO DAILY 02/02/24 02/04/24 packet (Klor-Con) sertraline 50 mg tablet (Zoloft) 50 mg PO DAILY 02/02/24 02/04/24 tamsulosin 0.4 mg capsule (Flomax) 0.4 mg PO DAILY 02/02/24 02/04/24 zinc sulfate 50 mg zinc (220 mg) 50 mg PO DAILY 02/02/24 02/04/24 capsule magnesium oxide 800 mg PO TID 02/04/24 02/04/24 polyethylene glycol 3350 17 gram 17 g PO DAILY PRN constipation 02/04/24 02/04/24 oral powder packet (Miralax) Allergies Allergy/AdvReac Type Severity Reaction Status Date / Time oats AdvReac Unknown Verified 02/02/24 16:53 Opioid HPI Opioid Management Most Recent Opioid Data: Last Pain Scale 3 02/06/24 20:00 Last ORT Total Score 1 02/04/24 15:56 Last ORT Risk Category Low Risk 02/04/24 15:56 Review of Systems ROS Constitutional Denies: fever or chills Ears, nose, mouth, and throat Denies: throat pain or nasal congestion Respiratory Denies: shortness of breath Gastrointestinal Denies: nausea or vomiting Musculoskeletal Denies: back pain Integumentary/Breast Denies: rash Neurological Denies: headache Hematologic/Lymphatic Denies: easy bruising or easy bleeding [facility] Medical History (Updated 02/24/24 @ 18:36 by KAVYA Velazquez) Atrial flutter with rapid ventricular response ?I48.92 - Unspecified atrial flutter (ICD-10) Acute on chronic blood loss anemia ?D62 - Acute posthemorrhagic anemia (ICD-10) Rectal bleed ?K62.5 - Hemorrhage of anus and rectum (ICD-10) Adenocarcinoma of rectum ?C20 - Malignant neoplasm of rectum (ICD-10) Adenocarcinoma of rectum ?C20 - Malignant neoplasm of rectum (ICD-10) GERD (gastroesophageal reflux disease) ?K21.9 - Gastro-esophageal reflux disease without esophagitis (ICD-10) CHF (congestive heart failure) ?I50.9 - Heart failure, unspecified (ICD-10) Depression ?F32.A - Depression, unspecified (ICD-10) Closed head injury ?S09.90XA - Unspecified injury of head, initial encounter (ICD-10) Post concussion syndrome ?F07.81 - Postconcussional syndrome (ICD-10) Neck pain ?M54.2 - Cervicalgia (ICD-10) Osteomyelitis of vertebra, sacral and sacrococcygeal region ?M46.28 - Osteomyelitis of vertebra, sacral and sacrococcygeal region (ICD-10) GI hemorrhage ?K92.2 - Gastrointestinal hemorrhage, unspecified (ICD-10) Pressure ulcer, sacrum ?L89.159 - Pressure ulcer of sacral region, unspecified stage (ICD-10) Chronic a-fib ?I48.20 - Chronic atrial fibrillation, unspecified (ICD-10) CKD (chronic kidney disease) stage 3, GFR 30-59 ml/min ?N18.30 - Chronic kidney disease, stage 3 unspecified (ICD-10) DM2 (diabetes mellitus, type 2) ?E11.9 - Type 2 diabetes mellitus without complications (ICD-10) Hyperlipidemia ?E78.5 - Hyperlipidemia, unspecified (ICD-10) Essential hypertension ?I10 - Essential (primary) hypertension (ICD-10) HFrEF (heart failure with reduced ejection fraction) ?I50.20 - Unspecified systolic (congestive) heart failure (ICD-10) MDD (major depressive disorder) ?F32.9 - Major depressive disorder, single episode, unspecified (ICD-10) Muscle wasting and atrophy, not elsewhere classified, multiple sites ?M62.59 - Muscle wasting and atrophy, not elsewhere classified, multiple sites (ICD-10) Surgical History (Updated 02/04/24 @ 16:50 by Bhavani Medrano) Colostomy in place ?Z93.3 - Colostomy status (ICD-10) Family History (Updated 02/04/24 @ 15:51 by Bhavani Medrano) Father Family history of myocardial infarction Family history of hypertension Mother Family history of CHF (congestive heart failure) Family history of cancer Family history of hypertension Grandmother Family history of diabetes mellitus Family history of hypertension Social History Within the past year, how often did you have a drink containing alcohol: never Within the past year, how often did you have six or more drinks on one occasion: never Score interpretation: A score less than 3 is consistent with normal alcohol consumption. Smoking status: Former smoker Non-prescribed substance use: denies use Previous occupational history: retired Highest level of school completed/degree received: high school graduate Are you now , , , , never or living with a partner: In a typical week, how many times do you talk on the telephone with family, friends, or neighbors: 3 or more times per week How often do you get together with friends or relatives: 3 or more times per week How often do you attend spiritism or mormonism services: 4 or more times per year Do you belong to any clubs or organizations such as spiritism groups unions, [employer] or athletic groups, or school groups: no Total score: 3 Score interpretation: A score of greater than or equal to 2 indicates the lowest level of social isolation. Little interest or pleasure in doing things: not at all Feeling down, depressed, or hopeless: not at all Feel stressed/tense/nervous/anxious/difficulty sleeping: not at all Do you think of yourself as: straight/heterosexual Gender Identity: female Exam Narrative Exam Narrative: Gen.: Awake, alert, in no distress Head: Normocephalic, atraumatic ENT: Moist mucous membranes Respiratory: No respiratory distress, lungs clear bilaterally; No wheezing or rhonchi, Speaking and breathing easily Cardio: Tachycardia Gastrointestinal: Abdomen is soft, Nontender. Colostomy bag to the left abdomen with brown stool. Indwelling Puga catheter. Extremities: Moves extremities equally, no pedal edema Psych: Normal mood and affect Neuro: No focal neuro deficit Skin: Warm, dry, intact Constitutional Vital Signs, click to edit/add: Last Vital Signs Temp 97.7 F 02/24/24 15:41 Pulse 116 H 02/24/24 18:00 Resp 28 H 02/24/24 18:00 BP 82/59 L 02/24/24 17:57 Pulse Ox 95 02/24/24 18:00 O2 Del Method Room Air 02/24/24 15:41 Course Vital Signs Vital signs: Vital Signs Temperature 97.7 F 02/24/24 15:41 Pulse Rate 111 H 02/24/24 15:41 Respiratory Rate 18 02/24/24 15:41 Blood Pressure 111/79 02/24/24 15:41 Pulse Oximetry 96 02/24/24 15:41 Oxygen Delivery Method Room Air 02/24/24 15:41 Temperature 97.7 F 02/24/24 15:41 Pulse Rate 116 H 02/24/24 18:00 Respiratory Rate 28 H 02/24/24 18:00 Blood Pressure 82/59 L 02/24/24 17:57 Pulse Oximetry 95 02/24/24 18:00 Oxygen Delivery Method Room Air 02/24/24 15:41 Medical Decision Making MDM Narrative Medical decision making narrative: Patient was treated with IV fluids until she was found to have elevated BNP which is chronic for her. I suspect A-fib with RVR has caused the elevated BNP. Her chest x-ray shows cardiomegaly without significant pulmonary edema and she is breathing easily in the ER maintaining room air oxygen saturation. She was treated for the A-fib with RVR with IV Cardizem. The remainder of her lab studies are stable. Respiratory panel is negative. She maintained her blood pressure after the IV Cardizem but her heart rate remained in the low 100s. She was started on a Cardizem drip at 5, we attempted to titrate the Cardizem drip to 7.5 but the patient had a fall on her blood pressure temporarily. Cardizem drip is currently at 5 and she will be admitted to ICU for A-fib with RVR. Stable at time of admission. At this time her blood pressure is 100/64 she is 96% on room air. Medical Records Medical records reviewed: Yes I reviewed the patient's medical records Lab Data Lab results reviewed: Yes I reviewed the patient's lab results Labs: Lab Results 02/24/24 02/24/24 Range/Units 15:59 16:00 WBC 12.6 H (4.0-11.0) 10^3/uL RBC 2.77 L (4.20-5.40) 10^6/uL Hgb 8.1 L (12.0-16.0) g/dL Hct 26.9 L (36.0-48.0) % MCV 97.1 (81.0-99.0) fL MCH 29.2 (26.7-34.0) pg MCHC 30.1 (29.9-35.2) g/dL RDW 16.6 H (11.0-15.0) % Plt Count 132 L (150-450) 10^3/uL MPV 11.3 (9.5-13.5) fL Neut % (Auto) 77.1 H (43.0-75.0) % Lymph % (Auto) 12.7 L (20.5-60.0) % [place] % (Auto) 8.7 (1.7-12.0) % Eos % (Auto) 0.9 (0.9-7.0) % Baso % (Auto) 0.2 (0.2-2.0) % Neut # (Auto) 9.7 H (1.4-6.5) 10^3/uL Lymph # (Auto) 1.6 (1.2-3.8) 10^3/uL [place] # (Auto) 1.1 H (0.3-0.8) 10^3/uL Eos # (Auto) 0.1 (0.0-0.7) 10^3/uL Baso # (Auto) 0.0 (0.0-0.1) 10^3/uL Abs Immat Gran (auto) 0.05 H (0.00-0.03) 10^3/uL Imm/Tot Granulo (auto) 0.4 (0.0-0.5) % PT 11.9 H (9.0-11.6) sec INR 1.14 VBG pH 7.434 H (7.330-7.430) VBG pCO2 39.2 L (40.0-52.0) mmHg Sodium 139 (136-145) mmol/L Potassium 4.5 (3.5-5.1) mmol/L Chloride 103 (98-107) mmol/L Carbon Dioxide 26.6 (21.0-32.0) mmol/L Anion Gap 13.9 BUN 28.0 H (7.0-18.0) mg/dL Creatinine 1.68 H (0.55-1.02) mg/dL Est GFR ( Amer) 37 L (>=60) Est GFR (Non-Af Amer) 30 L (>=60) BUN/Creatinine Ratio 16.7 Glucose 76 (74-106) mg/dL Lactate 2.0 (0.4-2.0) mmol/L Calcium 8.0 L (8.5-10.1) mg/dL Total Bilirubin 0.8 (0.2-1.0) mg/dL AST 28 (15-37) U/L ALT 16 (14-59) U/L Alkaline Phosphatase 169 H (46-116) U/L Troponin I High Sens 28.3 (4.0-51.3) pg/mL NT-Pro-B Natriuret Pep 96064.0 H* (<=900.0) pg/mL Total Protein 6.9 (6.4-8.2) g/dL Albumin 2.5 L (3.4-5.0) g/dL Globulin 4.4 g/dL Albumin/Globulin Ratio 0.6 Procalcitonin 0.14 (0.00-0.50) ng/mL TSH 3.868 H (0.358-3.740) uIU/mL Adenovirus (PCR) Not detected (NOT DETECTE) B. pertussis DNA (PCR) Not detected (NOT DETECTE) B.parapertussis DNA PCR Not detected (NOT DETECTE) C. pneumoniae DNA (PCR) Not detected (NOT DETECTE) Coronavirus Type OC43 Not detected (NOT DETECTE) Coronavirus Type HKU1 Not detected (NOT DETECTE) Coronavirus Type 229E Not detected (NOT DETECTE) Coronavirus Type NL63 Not detected (NOT DETECTE) Human Metapneumovir PCR Not detected (NOT DETECTE) Influenza Type A (PCR) Not detected (NOT DETECTE) Influenza Type B (PCR) Not detected (NOT DETECTE) M. pneumoniae (PCR) Not detected (NOT DETECTE) Parainfluenza PCR Not detected (NOT DETECTE) Parainfluenza 2 (PCR) Not detected (NOT DETECTE) Parainfluenza 3 (PCR) Not detected (NOT DETECTE) Parainfluenza 4 (PCR) Not detected (NOT DETECTE) RSV (RT-PCR) Not detected (NOT DETECTE) Entero/Rhino (PCR) Not detected (NOT DETECTE) SARS-CoV-2 (PCR) Not detected (NOT DETECTE) Imaging Data Chest x-ray: Attestation: I have reviewed the pertinent imaging results. Radiologist's impression: ITS Impressions Chest X-Ray 02/24/24 15:44 IMPRESSION: Cardiomegaly without overt cardiac decompensation. A focal infiltrate is not identified at this time. Electronically authenticated by: MITRA MONTGOMERY Date: 02/24/2024 16:42 ECG Data Attestation: I personally reviewed and interpreted this ECG as follows: (Atrial fibrillation at a rate of 113 with rapid ventricular response, no acute ST elevation. EKG reviewed by attending physician.) Discharge Plan Discharge Chief Complaint: Arrhythmia/Palpitations Patient Disposition: Admitted as Observation Time of Disposition Decision: 18:36 Prescriptions / Home Meds: No Action polyethylene glycol 3350 [Miralax] 17 gram powder in packet 17 g PO DAILY PRN (Reason: constipation) magnesium oxide 400 mg magnesium tablet 800 mg PO TID acetaminophen 500 mg capsule 1,000 mg PO Q6H PRN (Reason: fever or pain) ascorbic acid (vitamin C) [Acerola C] 500 mg tablet,chewable 500 mg PO BID atorvastatin 40 mg tablet 40 mg PO .QHS bumetanide 2 mg tablet 2 mg PO DAILY diltiazem HCl [Cardizem CD] 180 mg capsule,extended release 24hr 180 mg PO DAILY ergocalciferol (vitamin D2) 1,250 mcg (50,000 unit) capsule 50,000 unit PO QWEEK Rx Instructions: EVERY SATURDAY ferrous sulfate [FeroSul] 325 mg (65 mg iron) tablet 325 mg PO BID insulin glargine 100 unit/mL (3 mL) insulin pen 10 unit subcut BID metoprolol tartrate [Lopressor] 100 mg tablet 100 mg PO BID midodrine 5 mg tablet 5 mg PO TIDWM Rx Instructions: HOLD IF SBP > 130 do not give last dose of day after 6PM or within 4 hrs of bedtime multivitamin [Daily Multi-Vitamin] Tablet 1 tab PO DAILY insulin aspart U-100 [Novolog FlexPen U-100 Insulin] 100 unit/mL (3 mL) insulin pen 4 - 14 sliding scale dose subcut ACHS Rx Instructions: 100-149 0 UNITS 150-199 4 UNITS 200-249 7 UNITS 250-299 10 UNITS 300-349 12 UNITS 350-400 14 UNITS oxycodone 5 mg tablet 5 mg PO Q6H PRN (Reason: pain) Patient Comments: 1 tablet for pain -04/08 2 tablets for pain -07/09 pantoprazole 20 mg tablet,delayed release (DR/EC) 20 mg PO DAILY potassium chloride [Klor-Con] 20 mEq packet 20 meq PO DAILY sertraline [Zoloft] 50 mg tablet 50 mg PO DAILY tamsulosin [Flomax] 0.4 mg capsule 0.4 mg PO DAILY zinc sulfate 50 mg zinc (220 mg) capsule 50 mg PO DAILY Patient Comments: 01/25/24-02/08/24 FOR 14 DAYS ondansetron HCl 4 mg tablet 4 mg PO Q6H PRN (Reason: nausea and vomiting) Print Language: Nepalese Referrals: Physician,Non-Staff, MD [Primary Care Provider] - 1 week
--- OUTSIDE RECORDS SUMMARY | 2024-02-24 15:45 | XMS_ITS | CCD ---
Author Organization [facility] Care Team Providers Care Rectifier Operator Name Role Phone Carol Akins PA-C Primary Care Provider CAROL AKINS Primary Care Unavailable JUAN LOPEZ Attending Unavailable BELA GUZMÁN Consulting Unavailable EMILIANO URIBE Admitting Unavailable ONLY), IP WOUND CARE SERVICES (INPATIENT Consult ing Unavailable DIVISION OF INFECTIOUS DISEASE, [facility] Consulting Unavailable CARDIOLOGY, [facility] Consulting Unavailable REGINE ARRINGTON Consulting Unavailable KRYSTAL SERRANO Consulting Unavailable YANNA CHAPA Consulting Unavailable JUAN LOPEZ Attending Unavailable JUAN LOPEZ Referring Unavailable CAROL AKINS Primary Care Unavailable YENY VALDES Attending Unavailable YENY VALDES Referring Unavailable CAROL AKINS Primary Care Unavailable COLIN REYES Attending Unavailable COLIN REYES Referring Unavailable CAROL AKINS Primary Care Unavailable CAROL AKINS Primary Care Unavailable CELINA LARA Attending Unavailable CELINA LARA Attending Unavailable CELINA LARA Referring Unavailable CAROL AKINS Primary Care Unavailable CELINA LARA Attending Unavailable CELINA LARA Referring Unavailable CAROL AKINS Primary Care Unavailable Carol Akins PA-C Primary Care Provider [phone] TANNER HARRIS Attending Unavailable TANNER HARRIS Referring Unavailable CAROL AKINS Primary Care Unavailable YENY MIR Referring Unavailable CAROL AKINS Primary Care Unavailable MAGTOMY MOJICA Referring Unavailable CAROL AKINS Primary Care Unavailable MAGTOMY MOJICA Referring Unavailable CAROL AKINS Primary Care Unavailable RONNIE FITZGERALD Attending Unavailable RONNIE FITZGERALD Referring Unavailable CAROL AKINS Primary Care Unavailable CARIN MACHADO Attending Unavailable CAROL AKINS Primary Care Unavailable MAGSITOMY Referring Unavailable CAROL AKINS Primary Care Unavailable ANDREAS VARELA Referring Unavailable AKINS, CAROL A Primary Care Unavailable MAGSITOMY Referring Unavailable AKINS, CAROL A Primary Care Unavailable KOMAL TONG Attending Unavailable KOMAL TONG Referring Unavailable AKINS, CAROL A Primary Care Unavailable AVASILCJOJO ARMENDARIZ Referring Dayanara vailable AKINS, CAROL A Primary Care Unavailable MADAURELIO STORY Referring Unavailable AKINS, CAROL A Primary Care Unavailable GERMAINE BREWER Attending Unavailable HAILEY VAZQUEZ Referring Unavailable AKINS, CAROL A Primary Care Unavailable OSY TALAMANTES Attending Unavailable VINITA, SOY R Referring Unavailable AKINS, CAROL A Primary Care Unavailable BERNLEONILAORFF, SOY R Attending Unavailable BERNLEONILAORFF, SOY R Referring Unavailable AKINS, CAROL A Primary Care Unavailable YANNA CHAPA Attending Unavailable SAMMI, YANNA Fatima Referring Unavailable AKINS, CAROL A Primary Care Unavailable MITRA CROWELL Attending Unavailable MITRA CROWELL Referring Unavailable AKINS, CAROL A Primary Care Unavailable REINALDO BARROW Attending Unavailable YANNA CHAPA Attending Unavailable SAMMI, YANNA Fatima Referring Unavailable AKINS, CAROL A Primary Care Unavailable AVASILCJOJO ARMENDARIZ Referring Dayanara vailable AKINS, CAROL A Primary Care Unavailable ULISSES SILVER Attending Unavailable ULISSES ISLVER Referring Unavailable AKINS, CAROL A Primary Care Unavailable LIV BHAKTA Referring Unavailable AKINS, CAROL A Primary Care Unavailable LIV BHAKTA Referring Unavailable AKINS, CAROL A Primary Care Unavailable GREER LEGGETT Referring Unavailable AKINS, CAROL A Primary Care Unavailable HARMONY CHIN P Referring Unavailable AKINS, CAROL A Primary Care Unavailable CELE GUERRERO Attending Unavailable CELE GUERRERO Referring Unavailable AKINS, CAROL A Primary Care Unavailable DEJUAN SIMENTAL Referring Unavailable AKINS, CAROL A Primary Care Unavailable ROBERTS, NATASHA Referring Unavailable AKINS, CAROL A Primary Care Unavailable ROBERTS, NATASHA Referring Unavailable AKINS, CAROL A Primary Care Unavailable MARICRUZ MAKI Referring Unavailable AKINS, CAROL A Primary Care Unavailable FAVIO LINTON Attending Unavailable FAVIO LINTON Referring Unavailable AKINS, CAROL A Primary Care Unavailable REAGAN, MURPHY Referring Unavailable AKINS, CAROL A Primary Care Unavailable SANTANA GRAY Referring Unavailable AKINS, CAROL A Primary Care Unavailable REAGAN, MURPHY Referring Unavailable AKINS, CAROL A Primary Care Unavailable RUSSELL SHORT Attending Unavailable SANTANA GRAY Referring Unavailable AKINS, CAROL A Primary Care Unavailable MARICRUZ MAKI Referring Unavailable AKINS, CAROL A Primary Care Unavailable SANTANA GRAY Referring Unavailable AKINS, CAROL A Primary Care Unavailable REGINA JEAN Referring Unavaila ble AKINS, CAROL A Primary Care Unavailable REAGANMURPHY ZULETA Referring Unavailable AKINS, CAROL A Primary Care Unavailable PEYTON TRISTAN Referring Unavailable AKINS, CAROL A Primary Care Unavailable ANTON, DILLON U Attending Unavailable ANTON, DILLON U Referring Unavailable AKINS, CAROL A Primary Care Unavailable ANTON, DILLON U Attending Unavailable ANTON, DILLON U Referring Unavailable AKINS, CAROL A Primary Care Unavailable ANTON, DILLON U Attending Unavailable ANTON, DILLON U Referring Unavailable AKINS, CAROL A Primary Care Unavailable DE PAZ, MARKO Attending Unavailable DE PAZ, MARKO Referring Unavailable AKINS, CAROL A Primary Care Unavailable COLLEEN CAMPBELL Attending Unavailable COLLEEN CAMPBELL Referring Unavailable AKINS, CAROL A Primary Care Unavailable QAMAR, HALEY Referring Unavailable AKINS, CAROL A Primary Care Unavailable SALBADOR HOWELL Referring Unavailable AKINS, CAROL A Primary Care Unavailable JAIME DAVIS IV Referring Unavailable AIKNS, CAROL A Primary Care Unavailable QAMAR, HALEY Referring Unavailable AKINS, CAROL A Primary Care Unavailable KELLI POLLARD Referring Unavailable AKINS, CAROL A Primary Care Unavailable BETTE MOSS Attending Unavailable KELLI GOMES Referring Unavailable AKINS, CAROL A Primary Care Unavailable TELMA MITCHELL Attending Unavailable TELMA MITCHELL Referring Unavailable AKINS, CAROL A Primary Care Unavailable TELMA MITCHELL Attending Unavailable TELMA MITCHELL Referring Unavailable AKINS, CAROL A Primary Care Unavailable MITRA CROWELL Attending Unavailable MITRA CROWELL Referring Unavailable AKINS, CAROL A Primary Care Unavailable MITRA CROWELL Referring Unavailable AKINS, CAROL A Primary Care Unavailable AKINS, CAROL A Primary Care Unavailable JUSTYN BURCH Attending Unavailable EDUARDO WOLFF Consulting Unavailable ZURI NEAL Admitting Unavailable (TTH ONLY), SURGERY B Consulting Unavailabl e ONLY), IP WOUND CARE SERVICES (INPATIENT Consult ing Unavailable T[facility] ONLY, [facility] Consulting Unavailable LIZZ TREJO Consulting Unavailable PABLO BARNES Consulting Unavailable REGINALD VILLALTA Consulting Unavailable LILIA COX Consulting Unavailable SALBADOR DUTTON Referring Unavailable AKINS, CAROL A Primary Care Unavailable CASE, TANNER Cordero Admitting Unavailable CASE, TANNER Cordero Attending Unavailable FAVIO IZQUIERDO Referring Unavailable FRIDA, CAROL A Primary Care Unavailable RONNIE FITZGERALD Consulting Unavailable KRYSTAL CAMPO Consulting Unavailable GURPREET NAGY Consulting Unavailable CARDIOLOGY, [facility] Consulting Unavailable SONYA CORREA Consulting Unavailable DEANNA ADAMS Consulting Unavailable MIGUEL, VIDHIT Attending Unavailable MIGUEL, VIDHIT Referring Unavailable FRIDA, CAROL A Primary Care Unavailable BADDAMIÁN Lang A Attending Unavailable BADPrecious, HANI A Referring Unavailable FRIDA, CAROL A Primary Care Unavailable MIGUEL, VIDHIT Attending Unavailable MIGUEL, VIDHIT Referring Unavailable FRIDA, CAROL A Primary Care Unavailable MIGUEL, VIDHIT Attending Unavailable MIGUEL, VIDHIT Referring Unavailable FRIDA, CAROL A Primary Care Unavailable GREER LEGGETT Referring Unavailable FRIDA, CAROL A Primary Care Unavailable FRANDY, BRIGIDA Referring Unavailable FRIDA, CAROL A Primary Care Unavailable FRANYD, BRIGIDA Referring Unavailable FRIDA, CAROL A Primary Care Unavailable SUSAN IV, JAIME Referring Unavailable FRIDA, CAROL A Primary Care Unavailable SUSAN IV, JAIME Referring Unavailable FRIDA, CAROL A Primary Care Unavailable SUSAN IV, JAIME Referring Unavailable FRIDA, CAROL A Primary Care Unavailable AL-SARITHA, LILIA T Attending Unavailable AL-SARITHA, LILIA T Referring Unavailable FRIDA, CAROL A Primary Care Unavailable ELVI SCHREIBER Referring Unavailable FRIDA, CAROL A Primary Care Unavailable CASE, TANNER Cordero Admitting Unavailable CELE GUERRERO Attending Unavailable EMILIANO URIBE Referring Unavailable FRIDA, CAROL A Primary Care Unavailable BELA GUZMÁN Consulting Unavailable ONLY), IP WOUND CARE SERVICES (INPATIENT Consult ing Unavailable AL-SARITHA, LILIA T Consulting Unavailable (TTH ONLY), NEURO-CONSULTING Consulting Dayanara IMANI Landry Consulting Unavailable SONYA CORREA Consulting Unavailable MAGDI MATTHEW Consulting Unavailable SOY TALAMANTES Consulting Unavailable JIM FIERRO Consulting Unavailable COLLEEN CAMPBELL Consulting Unavailable EDUARDO WOLFF Consulting Unavailable MENDOZA REILLY Consulting Unavailable MITRA CROWELL Consulting Unavailable SONYA RUELAS Consulting Unavailable DIVISION OF INFECTIOUS DISEASE, [facility] Consulting Unavailable CARDIOLOGY, [facility] Consulting Unavailable RONNIE FITZGERALD Consulting Unavailable SPECIALISTS, [facility] Consulting Unavailable MEDICINE, [facility] Consulting U ZACK Buchanan Consulting Unavailable RONY, MUHAMID M Referring Unavailable CAROL AKINS Primary Care Unavailable SALBADOR DUTTON Referring Unavailable CAROL AKINS Primary Care Unavailable SALBADOR DUTTON Referring Unavailable CAROL AKINS Primary Care Unavailable BRANDON CARRILLO Referring Unavailable CAROL AKINS Primary Care Unavailable Allergies Allergy Classification Reported Allergen(s) Allergy Type Date of Onset Reaction(s) Facility (8 sources) Oats preparation; Translations: [OATS] Drug Allergy 12-01-2023 [facility] Medications Current Medications Medication Drug Class(es) Dates Sig (Normalized) Sig (Original) acetaminophen 500 mg oral tablet (13 sources) Start: 11-03-2023 500 mg, oral, Every 6 hours PRN, mild pain - pain scale 1-3, moderate pain - pain scale 4-6, Starting on Sat12/22/23 at 1748, Indications: fever, headache disorder, pain 12 hr acetaZOLAMIDE 500 mg extended release oral capsule (1 source) Carbonic Anhydrase Inhibitor Start: 10-04-2023 take 500 mg by mouth twice daily 500 mg, oral, 2 times daily, First dose on Sat10/04/23 at 1315, Look-alike/sound- alike medication - verify indication for use. Do not crush. ampicillin-sulbactam 3,000 mg in sodium chloride 0.9 % 100 mL IVPB MINI-BAG Plus (4 sources) Start: 11-26-2023 End: 11-30-2024 take 3000 mg intravenously every six hours ampicillin-sulbac meyer 3,000 mg in sodium chloride 0.9 % 100 mL IVPB MINI-BAG Plus Infuse 3,000 mg into a venous catheter every 6 (six) hours. 1 each 0 11/26/2023 11/30/2024 Active Start: 11-01-2023 End: 11-26-2023 take 3000 mg intravenously every six hours ampicillin-sulbactam 3,000 mg in sodium chloride 0.9 % 100 mL IVPB MINI-BAG Plus Infuse 3,000 mg into a venous catheter every 6 (six) hours. 1 each 0 11/01/2023 11/26/2023 Discontinued Start: 11-01-2023 End: 11-30-2024 take 3000 mg intravenously every six hours ampicillin-sulbactam 3,000 mg in sodium chloride 0.9 % 100 mL IVPB MINI-BAG Plus Infuse 3,000 mg into a venous catheter every 6 (six) hours. 1 each 0 11/01/2023 11/30/2024 Active aspirin 81 mg delayed release oral tablet (2 sources) Platelet Aggregation Inhibitor, Nonsteroidal Anti-inflammatory Drug Start: 12-23-2023 End: 12-23-2023 take 81 mg by mouth once daily 81 mg, oral, Daily, First dose on Sat12/24/23 at 0900, Do not crush or chew. atorvastatin 20 mg oral tablet (11 sources) HMG-CoA Reductase Inhibitor Start: 12-23-2023 take 20 mg by mouth once daily 20 mg, oral, Nightly, First dose on Sat12/23/23 at 2200, Look-alike/sound -alike medication - verify indication for use. Start: 03-21-2021 End: 12-04-2023 take 1 tablet by mouth once daily atorvastatin (LIPITOR) 20 mg tablet Take 1 tablet (20 mg total) by mouth daily. 30 tablet 03/21/2021 12/04/2023 Discontinued (Stop Taking at Discharge) 100 ml calcium gluconate 20 mg/ml injection (1 source) Start: 12-24-2023 take 4-4.3 mg intravenously every hour as needed 2,000 mg, intravenous, at 50 mL/hr, Administer over 2 Hours, As needed, ionized calcium 4 to 4.3 mg/dL, Starting on Sat12/24/23 at 0729, IV Administration of calcium via a central or deep vein preferred. Avoid administration in small hand veins VESICANT (RED) 0.5 ml darbepoetin stefania 0.2 mg/ml prefilled syringe (1 source) Erythropoiesis-stimu lating Agent Start: 09-22-2023 inject 12 g by subcutaneous injection every week 100 mcg, subcutaneous, Weekly, First dose on Sat09/22/23 at 1200, Do not administer if the patient's hemoglobin is greater than 12 g/dl., Indications: anemia due to renal failure docusate sodium 50 mg / sennosides, mcfp 8.6 mg oral tablet (1 source) Start: 09-25-2023 2 tablet, oral, Nightly, First dose on Sat09/25/23 at 2200, Hold for loose stool fat xclz-udh-tsp-kay v-fish oil, SMOFLIPID, 20 % emulsion infusion (5 sources) Start: 12-04-2023 fat olnx-czc-zzy-oliv- fish oil, SMOFLIPID, 20 % emulsion infusion Infuse 200 mL (40 g total) into a venous catheter in the morning. 0 12/04/2023 Active glucagon (rdna) 1 mg injection (2 sources) Antihypoglycemic Agent Start: 12-22-2023 1 mg, intramuscular, As needed, low blood sugar, blood glucose less than 70 mg/dL and unconscious or NPO without IV access., Starting on 12/22/23 at 1753, If conscious and not NPO, immediately follow with meal tray or high protein (7Grams) snack if tray not available. If NPO, initiate IV 5% Dextrose/Water at 100 mL/hr and contact prescriber for additional orders. If blood glucose is not greater than 70 mg/dL after initial treatment, repeat treatment. Start: 09-20-2023 1 mg, intramus cular, As needed, low blood sugar, blood glucose less than 70 mg/dL and unconscious or NPO without IV access., Starting on 09/20/23 at 0656, If conscious and not NPO, immediately follow with meal tray or high protein (7Grams) snack if tray not available. If NPO, initiate IV 5% Dextrose/Water at 100 mL/hr and contact prescriber for additional orders. If blood glucose is not greater than 70 mg/dL after initial treatment, repeat treatment. 150 ml glucose 50 mg/ml injection (7 sources) Start: 12-22-2023 15 g, oral, As needed, low blood sugar, blood glucose less than 70 mg/dL, Starting on 12/22/23 at 1753, If patient conscious and taking PO. If blood glucose is not greater than 70 mg/dL after initial treatment, repeat treatment. Start: 12-22-2023 25 mL, intrave nous, As needed, low blood sugar, blood glucose less than 70 mg/dL and unconscious or NPO with IV access, Starting on 12/22/23 at 1753, Push over 1-3 minutes STAT. If conscious and not NPO, immediately follow with meal tray or high protein (7 grams) snack if tray not available. If NPO, initiate 5% dextrose in water at 100 mL/hr and contact prescriber for additional orders. If blood glucose is not greater than 70 mg/dL after initial treatment, repeat treatment. VESICANT (RED) Warning: HYPERTONIC solution. Start: 12-22-2023 take 70 mg intraveno usly every hour 100 mL/hr, intravenous, Continuous PRN, blood glucose less than 70 mg/dL, Starting on Sat12/22/23 at 1753, Use immediately following dextrose 50% or glucagon treatment for patients who are unconscious or NPO. Contact prescriber for additional orders. If blood glucose is not greater than 70 mg/dL after initial treatment, repeat treatment. Start: 12-22-2023 End: 12-22-2023 Starting on Sat12/22/23 at 1 340, For 1 dose, Ana Menard: cabinet override VESICANT (RED) Warning: HYPERTONIC solution. Start: 09-20-2023 15 g, oral, As needed, low blood sugar, blood glucose less than 70 mg/dL, Starting on Sat09/20/23 at 0656, If patient conscious and taking PO. If blood glucose is not greater than 70 mg/dL after initial treatment, repeat treatment. Start: 09-20-2023 25 mL, intrave nous, As needed, low blood sugar, blood glucose less than 70 mg/dL and unconscious or NPO with IV access, Starting on Sat09/20/23 at 0656, Push over 1-3 minutes STAT. If conscious and not NPO, immediately follow with meal tray or high protein (7 grams) snack if tray not available. If NPO, initiate 5% dextrose in water at 100 mL/hr and contact prescriber for additional orders. If blood glucose is not greater than 70 mg/dL after initial treatment, repeat treatment. VESICANT (RED) Warning: HYPERTONIC solution. Start: 09-20-2023 take 70 mg intraveno usly every hour 100 mL/hr, intravenous, Continuous PRN, blood glucose less than 70 mg/dL, Starting on Sat09/20/23 at 0656, Use immediately following dextrose 50% or glucagon treatment for patients who are unconscious or NPO. Contact prescriber for additional orders. If blood glucose is not greater than 70 mg/dL after initial treatment, repeat treatment. sodium hypochlorite 1.25 mg/ ml topical solution (6 sources) Start: 12-23-2023 1 Application, topical, 2 times daily, First dose on Sat12/23/23 at 2100 Start: 11-03-2023 End: 12-04-2023 sodium hypochlorite (DAKIN'S 1/4 STRENGTH) 0.125 % solution external solution Apply 1 Application topically in the morning and 1 Application before bedtime. 0 11/03/2023 12/04/2023 Discontinued (Stop Taking at Discharge) levalbuterol 0.417 mg/ml inhalation solution (19 sources) beta2-Adrenergic Agonist Start: 12-23-2023 take 1.25 mg by inhalation every four hours as needed for wheezing 1.25 mg, nebulization, Every 4 hours PRN , wheezing, Starting on Sat12/23/23 at 1347, Ordered in place of albuterol due to: arrhythmia, tachycardia, Implement INPATIENT/ED Bronchodilator Clinical Practice Guidelines? Yes, Document: \[facility].org\epic\EPIC_Reference\Orders\Respiratory Care Guidelines\CPG Bronchodilator 2020.pdf Start: 12-04-2023 End: 12-22-2023 take 1.25 mg by inhalation every four hours as needed for wheezing and wheezing and wheezing Start: 12-04-2023 take 1.25 mg by inha lation every four hours as needed for wheezing and wheezing and wheezing levalbuterol (XOPENEX) 1.25 mg/3 mL nebulizer solution Indications: Wheezing Inhale 3 mL (1.25 mg total) by nebulization every 4 (four) hours as needed for wheezing. 0 12/04/2023 Active Start: 11-03-2023 take 0.63 mg by inha lation every six hours as needed for wheezing and dyspnea and wheezing and wheezing Start: 11-03-2023 take 0.63 mg by inha lation every six hours as needed for wheezing and dyspnea and wheezing and wheezing levalbuterol (XOPENEX) 0.63 mg/3 mL nebulizer solution Indications: Wheezing Inhale 3 mL (0.63 mg total) by nebulization every 6 (six) hours as needed for wheezing or shortness of breath. 0 11/03/2023 Suspended 50 ml magnesium sulfate 40 mg/ml injection (3 sources) Start: 12-22-2023 2,000 mg, intr avenous, at 25 mL/hr, Administer over 120 Minutes, As needed, Magnesium level 1.7 to 1.9 mg/dL, or Ionized Magnesium level 0.45 to 0.5 mmol/L., Starting on Sat12/22/23 at 1722, Recheck magnesium level 4 hours after infusion complete. With each magnesium result continue the replacement orders as needed. Start: 12-22-2023 4,000 mg, intr avenous, at 25 mL/hr, Administer over 240 Minutes, As needed, Magnesium level 1.6 mg/dL or less, or Ionized Magnesium level 0.44 mmol/L or less, Starting on Sat12/22/23 at 1722, Recheck magnesium level 4 hours after infusion complete. With each magnesium result continue the replacement orders as needed. Start: 12-22-2023 End: 12-22-2023 1,000 mg, intravenous, at 30 0 mL/hr, Administer over 20 Minutes, Once, On Sat12/22/23 at 1330, For 1 dose, Infuse over 20 minutes. metoprolol tartrate 100 mg oral tablet (20 sources) beta-Adrenergic Babak Start: 12-26-2023 take 100 mg by mouth twice daily 100 mg, oral, 2 times daily, First dose (after last modification) on Linda 12/26/23 at 2100, Look-alike/sound-alike medication - verify indication for use. Start: 12-26-2023 End: 12-27-2023 5 mg, intravenous, Once, On Linda 12/26/23 at 1215, For 1 dose, Administer right before patient go down for the CTA Coronary Arteries. Look-alike/sound-alike medication - verify indication for use. Start: 12-25-2023 End: 12-25-2023 5 mg, intravenous, Administe r over 1 Minutes, Every 5 min PRN, high blood pressure, for heart rate >65 and SBP >_ 100 mmHg as needed to achieve HR <_ 65, up to 3 times (i.e. up to a total metoprolol IV dose of 15 mg), Starting on Sat12/25/23 at 1701, For 3 doses, Additional Imaging Orders, Administer over at least 1 minute. Look-alike/sound-alike medication - verify indication for use. Start: 12-25-2023 End: 12-26-2023 take 50 mg by mouth twice daily 50 mg, oral, 2 times daily, First dose (after last modification) on Sat12/25/23 at 1245, Look-alike/sound-alike medication - verify indication for use. Start: 12-24-2023 End: 12-25-2023 take 25 mg by mouth twice daily 25 mg, oral, 2 times daily, First dose (after last modification) on Sat12/24/23 at 0900, Look-alike/sound-alike medication - verify indication for use. Start: 12-23-2023 End: 12-24-2023 take 12.5 mg by mouth twice daily 12.5 mg, oral, 2 times daily, First dose on Sat12/23/23 at 2100, Look-alike/sound-alike medication - verify indication for use. Start: 12-23-2023 take 5 mg intravenou sly every six hours as needed 5 mg, intravenous, Every 6 hours PRN, for HR >130 if SBP >110, Starting on Sat12/23/23 at 1517, Look-alike/sound-alike medication - verify indication for use. Start: 11-03-2023 End: 12-04-2023 take 1 tablet by mouth in the morning, then take 1 tablet by mouth at bedtime metoprolol tartrate (LOPRESSOR) 25 mg tablet Take 1 tablet (25 mg total) by mouth in the morning and 1 tablet (25 mg total) before bedtime. 0 11/03/2023 12/04/2023 Discontinued (Stop Taking at Discharge) Start: 09-25-2023 take 5 mg intravenou sly every six hours as needed 5 mg, intravenous, Every 6 hours PRN, HR greater than 120, Starting on Sat09/25/23 at 0824, Hold for systolic under 90 Look-alike/sound-alike medication - verify indication for use. Start: 09-24-2023 End: 12-04-2023 take 1 tablet by mouth in the morning, then take 1 tablet by mouth at bedtime metoprolol tartrate (LOPRESSOR) 50 mg tablet Take 1 tablet (50 mg total) by mouth in the morning and 1 tablet (50 mg total) before bedtime. Do all this for 30 days. 60 tablet 0 10/04/2023 12/04/2023 Discontinued (Stop Taking at Discharge) Start: 08-03-2021 End: 10-05-2023 Start: 08-03-2021 metoprolol suc cinate XL (TOPROL-XL) 100 mg 24 hr tablet Take 100 mg (1 tablet) in AM and 50 mg (1/2 tablet) in PM 45 tablet 5 08/03/2021 Suspended metoprolol tartrate (LOPRESSOR) 10 mg/mL suspension (5 sources) Start: 12-04-2023 take 2.5 mL by mouth in the morning metoprolol tartrate (LOPRESSOR) 10 mg/mL suspension Take 2.5 mL (25 mg total) by mouth in the morning and 2.5 mL (25 mg total) before bedtime. 0 12/04/2023 Active 2 ml ondansetron 2 mg/ml injection (1 source) Serotonin-3 Receptor Antagonist Start: 12-22-2023 take 4 mg intravenously every six hours as needed for nausea and vomiting 4 mg, intravenous, Every 6 hours PRN, nausea, vomiting, Starting on 12/22/23 at 1748, Administer over 2-5 minutes. pantoprazole 40 mg delayed release oral tablet (7 sources) Proton Pump Inhibitor Start: 12-23-2023 40 mg, oral, Every morning before breakfast, First dose on 12/23/23 at 0700, Look-alike/sound- alike medication - verify indication for use. If patient is receiving enteral feeding, consider alternative PPI or continue IV pantoprazole until the delayed-release tablet can be taken orally, Indication: GERD Start: 09-26-2023 End: 11-04-2023 take 1 tablet by mouth once daily before breakfast pantoprazole (PROTONIX) 40 mg EC tablet Take 1 tablet (40 mg total) by mouth every morning before breakfast for 30 days. 30 tablet 0 10/05/2023 11/04/2023 potassium chloride 10 meq extended release oral tablet (12 sources) Start: 10-04-2023 End: 11-03-2023 take 2 tablets by mouth in the morning potassium chloride (K-TAB,KLOR-CON) 10 MEQ CR tablet Take 2 tablets (20 mEq total) by mouth in the morning and 2 tablets (20 mEq total) before bedtime. Do all this for 30 days. 120 tablet 0 10/04/2023 11/03/2023 Active Start: 10-04-2023 End: 11-03-2023 Start: 10-01-2023 End: 10-04-2023 40 mEq, oral, 2 times daily, First dose (after last modification) on Sat10/04/23 at 1300, Hold for potassium more than 4.5 Do not crush or chew. Start: 09-25-2023 End: 10-01-2023 take 30 mEq by mouth every six hours 30 mEq, oral, Every 6 hours, First dose (after last modification) on Sat09/29/23 at 1400, Hold for potassium more than 4.5 Do not crush or chew. Start: 09-24-2023 End: 09-25-2023 20 mEq, oral, 2 times daily with meals, First dose on Sat09/24/23 at 1300, Do not crush or chew. TPN FOR DISCHARGE (5 sources) Start: 12-04-2023 TPN FOR DISCHA RGE See most recent TPN order. Flush IV line with heparin and/or normal saline per agency protocol. 0 12/04/2023 Active (4 sources) Start: 09-21-2023 2 mL, intraven ous, Every 96 hours, First dose on 09/21/23 at 1115, Venous Lumen. IVP equal to lumen volume, up to a maximum of 2 mL, every 96 hours. (Direct Care RN: flush and change caps every 96 hours) Start: 09-21-2023 2 mL, intraven ous, Every 96 hours, First dose on 09/21/23 at 1115, Arterial Lumen. IVP equal to lumen volume, up to a maximum of 2 mL, every 96 hours. (Direct Care RN: flush and change caps every 96 hours) Start: 09-21-2023 2 mL, intraven ous, As needed, line care, Starting on 09/21/23 at 1111, Venous Lumen. IVP equal to lumen volume, up to a maximum of 2 mL, after use. (casing builder: flush and change caps after each hemodialysis treatment) Start: 09-21-2023 2 mL, intraven ous, As needed, line care, Starting on 09/21/23 at 1111, Arterial Lumen. IVP equal to lumen volume, up to a maximum of 2 mL, after use. (casing builder: flush and change caps after each hemodialysis treatment) (1 source) Start: 09-20-2023 inject 400 mg by subcutaneous injection four times daily at mealtime, then inject 2 [IU] by subcutaneous injection 15 minutes after mealtime 2-10 Units, subcutaneous, 4 times daily with meals and nightly, First dose on Sat09/20/23 at 0800, Daytime hyperglycemia dosing. For blood glucose 151-200 mg/dL, give 2 units. For blood glucose 201-250 mg/dL, give 4 units. For blood glucose 251-300 mg/dL, give 6 units. For blood glucose 301-350 mg/dL, give 8 units. For blood glucose 351-400 mg/dL, give 10 units. Give even if NPO or meals skipped. Do NOT give more often then every 4 hours when NPO. Notify prescriber if blood glucose greater than 400 mg/dL. Look-alike/sound-alike medication - verify indication for use. Prime with 2 units of insulin prior to administration. Prandial/supplemental Insulin. Pre-filled pens stable 28 days at room temperature. Insulin lispro should be administered within 15 minutes before or immediately after a meal. (2 sources) Start: 12-22-2023 125 mL, intrav enous, Once in imaging, contrast, Starting on 12/22/23 at 1424, For 1 dose, Additional Imaging Orders, VESICANT (RED) Start: 12-22-2023 End: 12-22-2023 100 mL, intravenous, Once in imaging, contrast, Starting on 12/22/23 at 1424, For 1 dose, Additional Imaging Orders, VESICANT (RED) Completed/Discontinued Medications Medication Drug Class(es) Dates Sig (Normalized) Sig (Original) acetaminophen 325 mg / HYDROcodone bitartrate 5 mg oral tablet (1 source) Opioid Agonist Start: 12-28-2023 End: 12-28-2023 1 tablet, oral, Once as needed, severe pain - pain scale 7-10, Starting on 12/28/23 at 0315, For 1 dose, Look-alike/sound-neela e medication - verify indication for use. 20 ml albumin human, mcfp 250 mg/ml injection (5 sources) Human Serum Albumin Start: 09-27-2023 End: 09-28-2023 25 g, intravenous, Once, On 09/28/23 at 1130, For 1 dose, Do not exceed 1 mL/minute in patients with normal plasma volume; 2 to 3 mL/minute in patients with hypoproteinemia For BUMINATE, administer using a 15 micron or smaller filter. A filter is NOT required for administration by other brands., Indication: Other, Indication: Hypervolemia with hypo Start: 09-22-2023 End: 09-24-2023 25 g, intravenous, Once, On 09/24/23 at 1145, For 1 dose, Do not exceed 1 mL/minute in patients with normal plasma volume; 2 to 3 mL/minute in patients with hypoproteinemia For BUMINATE, administer using a 15 micron or smaller filter. A filter is NOT required for administration by other brands., Indication: Other, Indication: Hypoalbuminemia Start: 09-20-2023 End: 09-20-2023 25 g, intravenous, 2 times d aily, First dose on 09/20/23 at 1230, For 2 doses, Do not exceed 1 mL/minute in patients with normal plasma volume; 2 to 3 mL/minute in patients with hypoproteinemia For BUMINATE, administer using a 15 micron or smaller filter. A filter is NOT required for administration by other brands., Indication: Other, Indication: Persistent hypotension ALPRAZolam 0.25 mg oral tablet (1 source) Benzodiazepine Start: 12-26-2023 End: 12-27-2023 take 0.5 mg by mouth once as needed for anxiety 0.5 mg, oral, Once as needed, anxiety, Give 30 minutes before MRI., Starting on [place] 12/26/23 at 1010, For 1 dose, Look-alike/sound-alike medication - verify indication for use. ampicillin 1000 mg / sulbactam 500 mg injection (5 sources) Penicillin-class Antibacterial, beta Lactamase Inhibitor Start: 11-01-2023 End: 12-04-2023 ampicillin-sulbactam (UNASYN) 1500 mg injection Infuse 12,000 mg into a venous catheter continuously for 30 days. End Date 12/01/2023 1 each 1 11/01/2023 12/04/2023 Discontinued (Stop Taking at Discharge) apixaban 5 mg oral tablet (7 sources) Factor Xa Inhibitor Start: 11-03-2023 End: 12-04-2023 take 1 tablet by mouth in the morning, then take 1 tablet by mouth at bedtime apixaban (ELIQUIS) 5 mg tablet Take 1 tablet (5 mg total) by mouth in the morning and 1 tablet (5 mg total) before bedtime. 0 11/03/2023 12/04/2023 Discontinued (Stop Taking at Discharge) Start: 10-01-2023 End: 10-04-2023 Start: 10-01-2023 take 1 tablet by dax th in the morning, then take 1 tablet by mouth at bedtime apixaban (ELIQUIS) 5 mg tablet Take 1 tablet (5 mg total) by mouth in the morning and 1 tablet (5 mg total) before bedtime. 60 tablet 0 10/01/2023 Active bumetanide 2 mg oral tablet (20 sources) Loop Diuretic Start: 11-03-2023 End: 12-04-2023 take 1 tablet by mouth once daily bumetanide (BUMEX) 1 mg tablet Take 1 tablet (1 mg total) by mouth daily. 0 11/03/2023 12/04/2023 Discontinued (Stop Taking at Discharge) Start: 10-05-2023 End: 12-04-2023 Start: 10-01-2023 End: 11-04-2023 Start: 09-29-2023 End: 10-01-2023 2 mg, intravenous, 2 times d aily before meals, First dose on Sat09/30/23 at 1600 calcium chloride 0.0014 meq/ ml / potassium chloride 0.004 meq/ml / sodium chloride 0.103 meq/ml / sodium lactate 0.028 meq/ml injectable solution (2 sources) Start: 09-26-2023 End: 09-26-2023 500 mL, intravenous, at 968 mL/hr, Administer over 31 Minutes, Once, On [place] 09/26/23 at 2315, For 1 dose Start: 09-26-2023 End: 09-26-2023 500 mL, intravenous, at 968 mL/hr, Administer over 31 Minutes, Once, On [place] 09/26/23 at 2100, For 1 dose 100 ml dexmedetomidine 0.004 mg/ml injection (2 sources) Central alpha-2 Adrenergic Agonist Start: 09-22-2023 End: 09-24-2023 0.2-0.7 mcg/kg/hr 131 kg (6.55-22.925 mL/hr, rounded to 6.6-22.9 mL/hr), intravenous, Continuous, Starting on 09/22/23 at 1715, Start at 0.2 mcg/kg/hr. Titrate by 0.1 mcg/kg/hr every 30 minutes to achieve target RASS sedation level. Look-alike/sound-alike medication - verify indication for use., Indication: Sedation, Sequence of Sedation- Use this medication: First, Wean Sequence: Wean First Start: 09-22-2023 End: 09-22-2023 Starting on [place] 09/22/23 at 1710, For 1 dose, JanuaryJennifer Look-alike/sound-alike medication - verify indication for use. 2 ml digoxin 0.25 mg/ml injection (15 sources) Cardiac Glycoside Start: 12-22-2023 End: 12-23-2023 take 250 ug intravenously every four hours 250 mcg, intravenous, Every 4 hours, First dose on 12/23/23 at 0930, For 2 doses, Administer IVP slowly over at least 5 minutes. Look-alike/sound-alike medication - verify indication for use. Start: 12-05-2023 Start: 12-05-2023 take 1 tablet by dax th in the morning digoxin (LANOXIN) 125 mcg tablet Take 1 tablet (125 mcg total) by mouth in the morning. 0 12/05/2023 Active Start: 10-03-2023 End: 10-03-2023 250 mcg, intravenous, Once, On [place] 10/03/23 at 1630, For 1 dose, Administer IVP slowly over at least 5 minutes. Look-alike/sound-alike medication - verify indication for use. Start: 10-03-2023 End: 10-03-2023 250 mcg, intravenous, Once, On [place] 10/03/23 at 1230, For 1 dose, Administer IVP slowly over at least 5 minutes. Look-alike/sound-alike medication - verify indication for use. Start: 10-02-2023 End: 10-02-2023 250 mcg, intravenous, Once, On Sat10/02/23 at 2000, For 1 dose, Administer IVP slowly over at least 5 minutes. Look-alike/sound-alike medication - verify indication for use. Start: 09-29-2023 End: 09-29-2023 125 mcg, intravenous, Once, On 09/29/23 at 0045, For 1 dose, Administer IVP slowly over at least 5 minutes. Look-alike/sound-alike medication - verify indication for use. Start: 09-27-2023 End: 09-28-2023 125 mcg, intravenous, Once, On 09/28/23 at 0030, For 1 dose, Administer IVP slowly over at least 5 minutes. Look-alike/sound-alike medication - verify indication for use. 24 hr dilTIAZem hydrochlorid e 180 mg extended release oral capsule (12 sources) Calcium Channel Babak Start: 11-03-2023 doxycycline hyclate 100 mg o ral capsule (4 sources) Tetracycline-class Drug Start: 12-28-2023 End: 12-28-2023 Start: 12-27-2023 End: 01-26-2024 100 mg, oral, 2 times daily, First dose on Sat12/27/23 at 0900, For 30 days, May give with meals to decrease GI upset. Administer with at least 8 ounces of water and have patient sit up for at least 30 minutes after taking to reduce the risk of esophageal irritation and ulceration., Indication: Osteoarticular Start: 12-26-2023 End: 01-25-2024 take 100 mg by mouth every twelve hours Drug or medicament (substance) (4 sources) Start: 12-04-2023 famotidine 20 mg oral tablet (1 source) Histamine-2 Receptor Antagonist Start: 09-20-2023 End: 09-26-2023 20 mg, oral, Every 48 hours, First dose on Sat09/20/23 at 0715, Pharmacy to adjust dose based on renal function ferrous sulfate 325 mg oral tablet (10 sources) Start: 04-25-2023 End: 12-04-2023 take 1 tablet by mouth once daily at breakfast ferrous sulfate 325 (65 FE) mg tablet Take 1 tablet (325 mg total) by mouth daily with breakfast. 0 04/25/2023 12/04/2023 Discontinued (Stop Taking at Discharge) folic acid 1 mg oral tablet (6 sources) Start: 09-25-2023 End: 11-04-2023 take 1 tablet by mouth in the morning folic acid (FOLVITE) 1 mg tablet Indications: Folate deficiency Take 1 tablet (1 mg total) by mouth in the morning for 30 days. 30 tablet 0 10/05/2023 11/04/2023 furosemide 40 mg oral tablet (2 sources) Loop Diuretic Start: 03-21-2021 End: 10-05-2023 250 ml glucose 50 mg/ml / sodium chloride 9 mg/ml injection (4 sources) Start: 12-22-2023 End: 12-24-2023 take 75 mL intravenously every hour 75 mL/hr, intravenous, Continuous, Starting on Sat12/23/23 at 1800 1 ml heparin sodium, porcine 5000 unt/ml injection (20 sources) Unfractionated Heparin, Anti-coagulant Start: 12-25-2023 End: 12-26-2023 inject 5000 [IU] by subcutaneous injection every twelve hours 5,000 Units, subcutaneous, Every 12 hours scheduled, First dose on Sat12/25/23 at 2100, Look-alike/sound- alike medication - verify indication for use. Observe for bleeding. Start: 12-22-2023 End: 12-25-2023 300-3,500 Units/hr (6-70 mL/ hr), intravenous, Continuous, Starting on Sat12/22/23 at 1830, Please titrate from initial infusion rate listed above. MAXIMUM initial infusion: 1000 units/hr Heparin Low Intensity Infusion (Cardiology) Heparin Adjustment Table: Anti-Xa Therapeutic Goal: 0.3 - 0.7 IU/mL Anti-Xa results (IU/mL): Ant-Xa every 6 hours after dosage adjustment until therapeutic x 2 then every AM -less than 0.1 IU/mL: bolus 2000 units, increase rate by 150 units/hr (3 mL/hr), next Anti-Xa in 6 hrs. -0.1 - 0.29 IU/mL: increase rate by 100 units/hr (2 mL/hr), next Anti-Xa in 6 hours. -0.3 - 0.7 IU/mL: Therapeutic level: next Anti-Xa in 6 hours then every AM. -0.71 - 0.8 IU/mL: decrease rate by 50 units/hr (1 mL/hr), next Anti-Xa in 6 hours. -0.81 - 1.6 IU/mL: stop infusion for 30 minutes, decrease rate by 100 units/hr (2 mL/hr), next Anti-Xa in 6 hours. -1.61 - 2 IU/mL: stop infusion for 60 minutes, decrease rate by 150 units/hr (3 mL/hr), next Anti-Xa in 6 hours. - Greater than 2 IU/mL: stop infusion for 90 minutes, decrease rate by 250 units/hr (5 mL/hr), next Anti-Xa in 6 hours. Monitor for signs of bleeding. Look-alike/sound-alike medication - verify indication for use., Indication: Afib or Mechanical Valve, INITIAL Infusion Dose (Units/hr): 1000 units/hr Start: 12-22-2023 End: 12-22-2023 4,000 Units, intravenous, On ce, On Sat12/22/23 at 1830, For 1 dose, Maximum 4000 units. DO NOT ADMINISTER HEPARIN BOLUS TO POST-CARDIOTHORACIC SURGERY PATIENTS. Look-alike/sound-alike medication - verify indication for use. Observe for bleeding. Start: 11-01-2023 Start: 11-01-2023 Start: 11-01-2023 heparin lock f lush, porcine, 10 unit/mL injection Infuse 1-5 mL (10-50 Units total) into a venous catheter as needed (line care per nursing agency protocol.). 1 mL 0 11/01/2023 Suspended Start: 11-01-2023 heparin lock f lush, porcine, injection 100 unit/mL solution Infuse 1-5 mL (100-500 Units total) into a venous catheter as needed (line care per nursing agency protocol.). 1 mL 0 11/01/2023 Suspended Start: 10-01-2023 End: 10-02-2023 300-3,500 Units/hr (6-70 mL/ hr), intravenous, Continuous, Starting on Sat10/01/23 at 1645, Please titrate from initial infusion rate listed above. MAXIMUM initial infusion: 1000 units/hr Heparin Low Intensity Infusion (Cardiology) Heparin Adjustment Table: Anti-Xa Therapeutic Goal: 0.3 - 0.7 IU/mL Anti-Xa results (IU/mL): Ant-Xa every 6 hours after dosage adjustment until therapeutic x 2 then every AM -less than 0.1 IU/mL: bolus 2000 units, increase rate by 150 units/hr (3 mL/hr), next Anti-Xa in 6 hrs. -0.1 - 0.29 IU/mL: increase rate by 100 units/hr (2 mL/hr), next Anti-Xa in 6 hours. -0.3 - 0.7 IU/mL: Therapeutic level: next Anti-Xa in 6 hours then every AM. -0.71 - 0.8 IU/mL: decrease rate by 50 units/hr (1 mL/hr), next Anti-Xa in 6 hours. -0.81 - 1.6 IU/mL: stop infusion for 30 minutes, decrease rate by 100 units/hr (2 mL/hr), next Anti-Xa in 6 hours. -1.61 - 2 IU/mL: stop infusion for 60 minutes, decrease rate by 150 units/hr (3 mL/hr), next Anti-Xa in 6 hours. - Greater than 2 IU/mL: stop infusion for 90 minutes, decrease rate by 250 units/hr (5 mL/hr), next Anti-Xa in 6 hours. Monitor for signs of bleeding. Look-alike/sound-alike medication - verify indication for use., Indication: Afib or Mechanical Valve, INITIAL Infusion Dose (Units/hr): 1000 units/hr Start: 09-23-2023 End: 09-24-2023 300-3,500 Units/hr (6-70 mL/ hr), intravenous, Continuous, Starting on Sat09/23/23 at 0915, Please titrate from initial infusion rate listed above. MAXIMUM initial infusion: 1000 units/hr Heparin Low Intensity Infusion (Cardiology) Heparin Adjustment Table: Anti-Xa Therapeutic Goal: 0.3 - 0.7 IU/mL Anti-Xa results (IU/mL): Ant-Xa every 6 hours after dosage adjustment until therapeutic x 2 then every AM -less than 0.1 IU/mL: bolus 2000 units, increase rate by 150 units/hr (3 mL/hr), next Anti-Xa in 6 hrs. -0.1 - 0.29 IU/mL: increase rate by 100 units/hr (2 mL/hr), next Anti-Xa in 6 hours. -0.3 - 0.7 IU/mL: Therapeutic level: next Anti-Xa in 6 hours then every AM. -0.71 - 0.8 IU/mL: decrease rate by 50 units/hr (1 mL/hr), next Anti-Xa in 6 hours. -0.81 - 1.6 IU/mL: stop infusion for 30 minutes, decrease rate by 100 units/hr (2 mL/hr), next Anti-Xa in 6 hours. -1.61 - 2 IU/mL: stop infusion for 60 minutes, decrease rate by 150 units/hr (3 mL/hr), next Anti-Xa in 6 hours. - Greater than 2 IU/mL: stop infusion for 90 minutes, decrease rate by 250 units/hr (5 mL/hr), next Anti-Xa in 6 hours. Monitor for signs of bleeding. Look-alike/sound-alike medication - verify indication for use., Indication: Afib or Mechanical Valve, INITIAL Infusion Dose (Units/hr): 1000 units/hr hydrocortisone 100 mg injection (4 sources) Corticosteroid Start: 12-22-2023 End: 12-23-2023 take 50 mg intravenously every six hours 50 mg, intravenous, Every 6 hours, First dose on Sat12/22/23 at 1800, Administer over 30 seconds. May alter blood glucose or insulin requirements. Look-alike/sound-alike medication - verify indication for use. Start: 09-20-2023 End: 09-25-2023 50 mg, intravenous, Every 12 hours scheduled, First dose (after last modification) on Sat09/24/23 at 0900, For 3 doses, Administer over 30 seconds. May alter blood glucose or insulin requirements. Look-alike/sound-alike medication - verify indication for use. 3 ml insulin glargine 100 un t/ml pen injector (12 sources) Insulin Analog Start: 11-03-2023 Start: 11-03-2023 inject 10 [IU] by tello bcutaneous injection in the morning insulin glargine (LANTUS, SEMGLEE) 100 unit/mL (3 mL) insulin pen Inject 10 Units under the skin in the morning and 10 Units before bedtime. 0 11/03/2023 Suspended 3 ml insulin lispro 100 unt/ml pen injector (17 sources) Insulin Analog Start: 12-04-2023 inject 1-10 [IU] by subcutaneous injection every six hours insulin lispro (HumaLOG) 100 unit/mL insulin pen Inject 1-10 Units under the skin every 6 (six) hours. 0 12/04/2023 Active Start: 11-03-2023 End: 12-22-2023 inject 1-10 [IU] by subcutaneous injection every six hours Start: 11-03-2023 End: 12-22-2023 inject 3-15 [IU] by subcutaneous injection four times daily at mealtime insulin lispro (HumaLOG) 100 unit/mL insulin pen Inject 3-15 Units under the skin 4 (four) times a day with meals and nightly. 0 11/03/2023 12/22/2023 Discontinued ipratropium bromide 0.2 mg/m l inhalation solution (7 sources) Anticholinergic Start: 12-04-2023 Start: 12-04-2023 take 2.5 mL by inhal ation four times daily as needed for wheezing ipratropium (ATROVENT) 0.02 % nebulizer solution Indications: Wheezing Inhale 2.5 mL (0.5 mg total) by nebulization 4 (four) times a day as needed for wheezing or shortness of breath. 0 12/04/2023 Active 1 ml LORazepam 2 mg/ml injection (1 source) Benzodiazepine Start: 12-27-2023 End: 12-27-2023 take 2 mg intravenously once 2 mg, intravenous, Once as needed, anxiety, Starting on Sat12/27/23 at 1048, For 1 dose, Look-alike/sound-alike medication - verify indication for use;IV use requires increased monitoring of HR,BP,Respirations and Pulse Oximetry;For IV-dilute with equal volume PF sod chloride, Indication: Other, Indication: give 15 minutes before MRI losartan potassium 50 mg oral tablet (2 sources) Angiotensin 2 Receptor Babak Start: 08-03-2021 End: 10-05-2023 magnesium oxide 400 mg oral tablet (12 sources) Start: 11-03-2023 Start: 11-03-2023 take 1 tablet by dax th in the morning, then take 1 tablet by mouth at bedtime magnesium oxide (MAGOX) 400 mg tablet Take 1 tablet (400 mg total) by mouth in the morning and 1 tablet (400 mg total) before bedtime. 0 11/03/2023 Suspended megestrol acetate 40 mg/ml o ral suspension (7 sources) Progestin Start: 12-05-2023 Start: 12-05-2023 take 10 mL by mouth in the morning megestroL (MEGACE) 400 mg/10 mL (10 mL) suspension Take 10 mL (400 mg total) by mouth in the morning. 0 12/05/2023 Active metFORMIN hydrochloride 500 mg oral tablet (2 sources) Biguanide Start: 04-21-2021 End: 10-05-2023 metOLazone 2.5 mg oral tablet (8 sources) Thiazide-like Diuretic Start: 10-05-2023 End: 12-04-2023 take 1 tablet by mouth every week metOLazone (ZAROXOLYN) 2.5 mg tablet Take 1 tablet (2.5 mg total) by mouth once a week for 28 days. 4 tablet 0 10/05/2023 12/04/2023 Discontinued (Stop Taking at Discharge) Start: 10-04-2023 End: 10-04-2023 take 10 mg by mouth once 10 mg, oral, Once, On 02/20 at 1300, For 1 dose, Look-alike/sound-alike medication - verify indication for use. Start: 09-24-2023 End: 10-01-2023 take 10 mg by mouth once daily 10 mg, oral, Daily, First dose on Sat09/24/23 at 1300, Look-alike/sound-alike medication - verify indication for use. metroNIDAZOLE 500 mg oral tablet (2 sources) Nitroimidazole Antimicrobial Start: 12-26-2023 End: 12-26-2023 take 500 mg by mouth every twelve hours 500 mg, oral, Every 12 hours scheduled, First dose on Sat12/26/23 at 0100, For 2 doses, Food-Drug Interaction Education Required Look-alike/sound-alike medication - verify indication for use Ethanol: Use of ethanol is contraindicated during therapy and for 3 days after therapy discontinuation, Indication: Skin and soft tissue infection Start: 12-22-2023 End: 12-25-2023 take 500 mg intravenously every eight hours 500 mg, intravenous, at 100 mL/hr, Administer over 60 Minutes, Every 8 hours, First dose on Sat12/22/23 at 1800, Look-alike/sound-alike medication - verify indication for use., Indication: Intra-abdominal midodrine hydrochloride 5 mg oral tablet (20 sources) alpha-Adrenergic Agonist Start: 11-03-2023 Start: 10-01-2023 End: 10-04-2023 take 10 mg by mouth every six hours 10 mg, oral, Every 6 hours, First dose (after last modification) on Sat10/01/23 at 2000, Hold for systolic greater than 130 once off all pressors Look-alike/sound-alike medication - verify indication for use. Start: 09-26-2023 End: 09-27-2023 take 10 mg by mouth every six hours 10 mg, oral, Every 6 hours, First dose (after last modification) on Sat09/26/23 at 1400, Hold for systolic greater than 130 once off all pressors Look-alike/sound-alike medication - verify indication for use. Start: 09-20-2023 End: 12-04-2023 take 1 tablet by mouth three times daily midodrine (PROAMATINE) 10 mg tablet Take 1 tablet (10 mg total) by mouth 3 (three) times a day for 30 days. 90 tablet 0 10/04/2023 12/04/2023 Discontinued (Stop Taking at Discharge) nitroglycerin 0.4 mg sublingual tablet (2 sources) Nitrate Vasodilator Start: 12-25-2023 End: 12-25-2023 take 0.4 mg under the tongue once 0.4 mg, sublingual, Once in imaging, chest pain, SBP >_ 100 mmHg, 0.4 mg nitroglycerin SL x 2, SBP 80-99, 0.4 mg nitroglycerin SL x 1, SBP < 80 mmHg, call supervising physician, Starting on Sat12/25/23 at 1701, For 1 dose, Additional Imaging Orders, Should be given 5-20 minutes prior to exam per SBP protocol. OLANZapine 10 mg injection (1 source) Atypical Antipsychotic Start: 12-25-2023 End: 12-27-2023 inject 2.5 mg by intramuscular injection every six hours as needed 2.5 mg, intramuscular, Every 6 hours PRN, agitation, Starting on Sat12/25/23 at 1603, Reconstitute vial with 2.1 mL of SWFI. Resulting solution is 5 mg/mL. Look-alike/sound- alike medication - verify indication for use. omeprazole 10 mg granules for oral suspension (7 sources) Proton Pump Inhibitor Start: 12-04-2023 Start: 12-04-2023 take 20 mg by mouth in the morning omeprazole magnesium (PriLOSEC) 10 mg susp,delayed release for recon suspension Take 20 mg by mouth in the morning. 0 12/04/2023 Active oxyCODONE hydrochloride 5 mg oral tablet (2 sources) Opioid Agonist Start: 11-03-2023 End: 12-04-2023 take 1 tablet by mouth every six hours as needed for pain oxyCODONE (ROXICODONE) 5 mg immediate release tablet Indications: Osteomyelitis, unspecified site, unspecified type (CMS-HCC) , Acute postoperative pain Take 1 tablet (5 mg total) by mouth every 6 (six) hours as needed for pain (moderate pain 4-6 or severe pain 7-10) for up to 5 days. Max Daily Amount: 20 mg 0 11/03/2023 12/04/2023 Discontinued (Stop Taking at Discharge) sertraline 50 mg oral tablet (7 sources) Serotonin Reuptake Inhibitor Start: 12-05-2023 Start: 12-05-2023 take 1 tablet by dax th in the morning sertraline (ZOLOFT) 50 mg tablet Take 1 tablet (50 mg total) by mouth in the morning. 0 12/05/2023 Active sevelamer carbonate 800 mg oral tablet (1 source) Phosphate Binder Start: 09-20-2023 End: 10-01-2023 take 1 tablet by mouth three times daily at mealtime 800 mg, oral, 3 times daily with meals, First dose on Sat09/20/23 at 1200, Look-alike/sound-alike medication - verify indication for use Give with meals Administer other medications 1 hour before or 3 hours after Enteral Feeding: Lanthanum and sevelamer TABLETS are not recommended to be crushed and administered in feeding tube due to risk of clogging tube Alternative: sevelamer carbonate suspension/packets or calcium carbonate per tube 50 ml sodium bicarbonate 84 mg/ml prefilled syringe (2 sources) Start: 09-20-2023 End: 09-21-2023 150 mEq, intravenous, Once, On 09/21/23 at 0815, For 1 dose, VESICANT (RED) 1000 ml sodium chloride 9 mg/ml injection (20 sources) Start: 12-22-2023 End: 12-22-2023 take 75 mL intravenously every hour 75 mL/hr, intravenous, Continuous, Starting on Sat12/22/23 at 1605, For 12 hours Start: 12-22-2023 End: 12-22-2023 80 mL, intravenous, Once in imaging, pre/post contrast, Starting on Sat12/22/23 at 1424, For 1 dose, Additional Imaging Orders Start: 12-22-2023 End: 12-27-2023 10 mL, intravenous, Once in imaging, line care, MRI, Starting on Sat12/27/23 at 1520, For 1 dose, Additional Imaging Orders Start: 12-22-2023 End: 12-22-2023 2,700 mL (30 mL/kg 90 kg Order-specific weight), intravenous, at 1,350 mL/hr, Administer over 2 Hours, Once, On 12/22/23 at 1230, For 1 dose, For IV Fluid Challenge, to be given within the first 3 hours of severe sepsis/septic shock presentation. Nurse to notify physician with the results of fluid challenge. [place] Body Weight used due to BMI > 30 Start: 11-01-2023 End: 12-04-2023 sodium chloride injection In fuse 10-20 mL into a venous catheter as needed for line care (line care per nursing agency protocol.). 1 mL 0 11/01/2023 12/04/2023 Discontinued (Stop Taking at Discharge) Start: 09-22-2023 250 mL, hemodi alysis, at 100 mL/hr, Continuous, Starting on 09/22/23 at 0000, as priming solution for hemodialysis tubing. Start: 09-21-2023 10 mL, intrave nous, Every 96 hours, First dose on 09/21/23 at 1115, Venous Lumen. Aspirate lumen and discard volume THEN 0.9% Sodium Chloride 10 mL IVP THEN 4% sodium citrate (0.2 grams/5 mL) IVP equal to lumen volume every 96 hours. (Direct Care RN: Flush and change caps every 96 hours) Start: 09-21-2023 10 mL, intrave nous, As needed, line care, Starting on Sat09/21/23 at 1111, Venous Lumen. 0.9% Sodium Chloride 10 mL IVP THEN 4% sodium citrate (0.2 grams/5 mL) IVP equal to lumen volume after use. (casing builder: flush and change caps after each hemodialysis treatment) Start: 09-20-2023 take 3 mL intravenou sly every twelve hours 3 mL, intravenous, Every 12 hours, First dose on Sat09/20/23 at 1015 Start: 09-20-2023 take 20 mL intraveno usly every hour as needed 20 mL/hr, intravenous, Continuous PRN, to maintain patency of lines, Starting on Sat09/20/23 at 1010 sodium zirconium cyclosilicate [id number] mg powder for oral suspension (1 source) Start: 09-20-2023 End: 09-26-2023 10 g, oral, Daily with lunch, First dose on Sat09/20/23 at 1200, Empty entire contents of the packet(s) into a glass with 3 tablespoons (45 mL) or more water. Stir well and drink immediately; if powder remains in the glass, add water, stir and drink immediately; repeat until no powder remains. Administer other oral medications 2 or more hours before or 2 hours after dose. warfarin sodium 5 mg oral tablet (2 sources) Vitamin K Antagonist Start: 09-09-2023 End: 10-05-2023 Start: 09-09-2023 warfarin (COUM LUISITO) 5 mg tablet Indications: Typical atrial flutter (CMS-HCC) Take 1 tablet (5 mg total) by mouth in the evening. Take .5 tablet (2.5mg) Saturday, Saturday. And Saturday. Take 1tablet (5mg) Saturday, , Saturday, and Saturday.. 0 09/09/2023 Suspended (20 sources) Start: 12-26-2023 End: 12-26-2023 take 2000 mg intravenously every twenty-four hours 2,000 mg, intravenous, at 100 mL/hr, Administer over 30 Minutes, Every 24 hours, First dose (after last reorder) on Sat12/26/23 at 2015, For 1 dose, ADD-VANTAGE/MBP- Discard 8 hours after activating; dissolve drug prior to administration Look-alike/sound-alike medication - verify indication for use. Do not co-administer with calcium-containing solutions such as Lactated Ringers., Indication: Osteoarticular Start: 12-24-2023 End: 12-25-2023 take 2000 mg intravenously every twenty-four hours 2,000 mg, intravenous, at 100 mL/hr, Administer over 30 Minutes, Every 24 hours, First dose on Sat12/24/23 at 2000, For 2 doses, ADD-VANTAGE/MBP- Discard 8 hours after activating; dissolve drug prior to administration Look-alike/sound-alike medication - verify indication for use. Do not co-administer with calcium-containing solutions such as Lactated Ringers., Indication: Osteoarticular Start: 12-24-2023 End: 12-26-2023 take 1250 mg intravenously every twenty-four hours 1,250 mg, intravenous, at 167 mL/hr, Administer over 90 Minutes, Every 24 hours, First dose (after last reorder) on Sat12/24/23 at 1400, For 3 doses, VESICANT (YELLOW) ADD-VANTAGE/MBP- Discard 24 hours after activating; dissolve drug prior to administration, Indication: Bacteremia Start: 12-24-2023 End: 12-28-2023 take 75 mL intravenously every hour 75 mL/hr, intravenous, Continuous, Starting on Sat12/24/23 at 0830 Start: 12-24-2023 take 3.4 mg intraven ously every hour as needed 4,000 mg, intravenous, at 72.5 mL/hr, Administer over 4 Hours, As needed, ionized calcium 3.4 mg/dL or less, Starting on Sat12/24/23 at 0729, IV administration of calcium via a central or deep vein is preferred. Avoid administration in small hand veins. VESICANT (RED) Start: 12-24-2023 take 3.5-3.9 mg intr avenously every hour as needed 3,000 mg, intravenous, at 43.3 mL/hr, Administer over 3 Hours, As needed, ionized calcium 3.5 to 3.9 mg/dL, Starting on Sat12/24/23 at 0729, IV Administration of calcium via a central or deep vein preferred. Avoid administration in small hand veins VESICANT (RED) Start: 12-24-2023 End: 12-24-2023 take 2000 mg intravenously every twelve hours 2,000 mg, intravenous, at 25 mL/hr, Administer over 4 Hours, Every 12 hours, First dose (after last reorder) on Sat12/24/23 at 0100, ADD-VANTAGE/MBP- Discard 24 hours after activating; dissolve drug prior to administration. Protect dry powder vial from light., Indication: Sepsis Start: 12-23-2023 End: 12-24-2023 take 1250 mg intravenously every twenty-four hours 1,250 mg, intravenous, at 167 mL/hr, Administer over 90 Minutes, Every 24 hours, First dose on Sat12/23/23 at 1300, VESICANT (YELLOW) ADD-VANTAGE/MBP- Discard 24 hours after activating; dissolve drug prior to administration, Indication: Bacteremia Start: 12-23-2023 End: 12-23-2023 take 2000 mg intravenously every twelve hours 2,000 mg, intravenous, Administer over 4 Hours, Every 12 hours, First dose on Sat12/23/23 at 0100, ADD-VANTAGE/MBP- Discard 24 hours after activating; dissolve drug prior to administration. Protect dry powder vial from light., Indication: Sepsis Start: 12-22-2023 [Order 1 Start ] Name: potassium chloride (K-TAB,KLOR-CON) CR tablet 40 mEq Signed Summary: 40 mEq, oral, As needed, potassium supplementation, Starting on Sat12/22/23 at 1722, Progress to oral potassium replacement when patient tolerating oral intake. If dose administered, recheck potassium level 4 hours after last dose. For potassium level 3.4 to 3.8 mmol/L and GFR 30 mL/min or greater=30 mEq. For potassium level 3.1 to 3.3 mmol/L and GFR 30 mL/min or greater=40 mEq. For potassium level 3 mmol/L or less and GFR 30 mL/min or greater=50 mEq. Do not crush or chew. [Order 1 End] [Order 2 Start] Name: potassium chloride (KAYCIEL) 20 mEq/15 mL solution 30-50 mEq Signed Summary: 30-50 mEq, oral, As needed, potassium supplementation, Starting on Sat12/22/23 at 1722, Progress to oral potassium replacement when patient tolerating oral intake. If dose administered, recheck potassium level 4 hours after last dose. For potassium level 3.4 to 3.8 mmol/L and GFR 30 mL/min or greater=30 mEq. For potassium level 3.1 to 3.3 mmol/L and GFR 30 mL/min or greater=40 mEq. For potassium level 3 mmol/L or less and GFR 30 mL/min or greater=50 mEq. Must dilute before use - Mix in 3-8 ounces of water or juice before administration When administering in feeding tube, flush before and after per policy and monitor potassium levels [Order 2 End] Start: 12-22-2023 End: 12-22-2023 2,000 mg, intravenous, Admin ister over 30 Minutes, Once, On Sat12/22/23 at 1230, For 1 dose, ADD-VANTAGE/MBP- Discard 24 hours after activating; dissolve drug prior to administration. Protect dry powder vial from light., Indication: Skin and soft tissue infection Start: 09-30-2023 End: 10-02-2023 100 mL/hr, intravenous, Cont inuous, Starting on Sat09/30/23 at 1145, Hold for sodium less than 139 solution= dextrose 2.5 % Start: 09-30-2023 [Order 1 Start ] Name: calcium gluconate IVPB 1000 mg/50 mL (20 mg/mL premix) Signed Summary: 1,000 mg, intravenous, at 50 mL/hr, Administer over 60 Minutes, As needed, for ionized calcium level 3.5 to 4.4 mg/dL, Starting on Sat09/30/23 at 0742, Recheck ionized calcium 6 hours after infusion. Hold calcium replacement for phosphorus greater than 5.5 mg/dL. VESICANT (RED) [Order 1 End] [Order 2 Start] Name: calcium gluconate IVPB 2000 mg/100 mL (20 mg/mL premix) Signed Summary: 2,000 mg, intravenous, at 100 mL/hr, Administer over 60 Minutes, As needed, for ionized calcium level 3 to 3.4 mg/dL, Starting on Sat09/30/23 at 0742, Recheck ionized calcium 6 hours after infusion. Hold calcium replacement for phosphorus greater than 5.5 mg/dL. VESICANT (RED) [Order 2 End] [Order 3 Start] Name: calcium gluconate 3,000 mg in sodium chloride 0.9 % 100 mL IVPB Signed Summary: 3,000 mg, intravenous, at 130 mL/hr, Administer over 60 Minutes, As needed, for ionized calcium level less than 3 mg/dL, Starting on Sat09/30/23 at 0742, CALL PHYSICIAN if this dose is administered. Recheck ionized calcium 6 hours after infusion. Hold calcium replacement for phosphorus greater than 5.5 mg/dL. VESICANT (RED) [Order 3 End] Start: 09-30-2023 [Order 1 Start ] Name: sodium phosphate 20 mmol in sodium chloride 0.9 % 250 mL IVPB Signed Summary: 20 mmol, intravenous, at 42.8 mL/hr, Administer over 6 Hours, As needed, for phosphorous level 2.3 mg/dL or less, Starting on Sat09/30/23 at 0742, Administer over 6 hours via dedicated line (peripheral line). If administered, recheck phosphorus level 4 hours after infusion complete. [Order 1 End] [Order 2 Start] Name: sodium phosphate 20 mmol in sodium chloride 0.9 % 100 mL IVPB Signed Summary: 20 mmol, intravenous, at 26.7 mL/hr, Administer over 4 Hours, As needed, for phosphorous level 2.3 mg/dL or less, Starting on Sat09/30/23 at 0742, Administer over 4 hours via dedicated line(central line). If administered, recheck phosphorus level 4 hours after infusion complete. Infuse using central line access. [Order 2 End] [Order 3 Start] Name: sod phos di, mono-K phos mono (K-PHOS NEUTRAL) 250 mg tablet 2 tablet Signed Summary: 2 tablet, oral, As needed, for phosphorous level 2.3 mg/dL or less, Starting on Sat09/30/23 at 0742, If dose administered, recheck phosphorus level 4 hours after last dose. Look-alike/sound-alike medication - verify indication for use. Give with a full glass of water. [Order 3 End] Start: 09-30-2023 [Order 1 Start ] Name: magnesium sulfate IVPB 2000 mg/50 mL in iso-osmotic water (40 mg/mL premix) Signed Summary: 2,000 mg, intravenous, at 25 mL/hr, Administer over 120 Minutes, As needed, for magnesium level 1.7 to 1.9 mg/dL or ionized magnesium level 0.45 to 0.5 mmol/L, Starting on Sat09/30/23 at 0742, Use premix solution. Default to ionized magnesium level in cases where patient has both magnesium and ionized magnesium results. If administered, check ionized magnesium (or total magnesium if ionized magnesium unavailable) level 4 hours after infusion. [Order 1 End] [Order 2 Start] Name: magnesium sulfate IVPB 4000 mg/100 mL in iso-osmotic water (40 mg/mL premix) Signed Summary: 4,000 mg, intravenous, at 25 mL/hr, Administer over 240 Minutes, As needed, for magnesium level 1.6 mg/mL or less, or ionized magnesium level 0.44 mmol/L or less, Starting on Sat09/30/23 at 0742, Use premix solution. Default to ionized magnesium level in cases where patient has both magnesium and ionized magnesium results. If administered, check ionized magnesium (or total magnesium if ionized magnesium unavailable) level 4 hours after infusion. [Order 2 End] Start: 09-30-2023 take 1 tablet by mouth once [O rder 1 Start] Name: potassium chloride (K-TAB,KLOR-CON) CR tablet 20-50 mEq Signed Summary: 20-50 mEq, oral, As needed, for potassium replacement, Starting on Sat09/30/23 at 0742, Progress to oral potassium replacement when patient tolerating oral intake. If dose administered, recheck potassium level 4 hours after last dose. For potassium level 3.4 to 3.8 mmol/L and Serum Creatinine 1.2 or less=30 mEq. For potassium level 3.1 to 3.3 mmol/L and Serum Creatinine 1.2 or less=40 mEq. For potassium level 3 mmol/L or less and Serum Creatinine 1.2 or less=50 mEq. For potassium level 3.4 to 3.8 mmol/L and Serum Creatinine greater than 1.2=20 mEq. For potassium level 3.1 to 3.3 mmol/L and Serum Creatinine greater than 1.2=30 mEq. For potassium level 3 mmol/L or less and Serum Creatinine greater than 1.2=40 mEq. Do not crush or chew. [Order 1 End] [Order 2 Start] Name: potassium chloride (KAYCIEL) 20 mEq/15 mL solution 20-50 mEq Signed Summary: 20-50 mEq, oral, As needed, potassium replacement, Starting on Sat09/30/23 at 0742, Progress to oral potassium replacement when patient tolerating oral intake. If dose administered, recheck potassium level 4 hours after last dose. For potassium level 3.4 to 3.8 mmol/L and Serum Creatinine 1.2 or less=30 mEq (22.5mL). For potassium level 3.1 to 3.3 mmol/L and Serum Creatinine 1.2 or less=40 mEq (30mL). For potassium level 3 mmol/L or less and Serum Creatinine 1.2 or less=50 mEq (37.5mL). For potassium level 3.4 to 3.8 mmol/L and Serum Creatinine greater than 1.2=20 mEq (15mL). For potassium level 3.1 to 3.3 mmol/L and Serum Creatinine greater than 1.2=30 mEq (22.5mL). For potassium level 3 mmol/L or less and Serum Creatinine greater than 1.2=40 mEq (30mL). Must dilute before use - Mix in 3-8 ounces of water or juice before administration When administering in feeding tube, flush before and after per policy and monitor potassium levels [Order 2 End] Start: 09-30-2023 [Order 1 Start ] Name: potassium chloride IVPB 10 mEq/50 mL in water (0.2 mEq/mL premix) Signed Summary: 10 mEq, intravenous, at 50 mL/hr, Administer over 1 Hours, As needed, for potassium replacement, Starting on Sat09/30/23 at 0742, Administer Potassium Chloride IVPB in 10 mEq increments. Maximum infusion rates: Central Line = 20 mEq/hour. Administer via Central Line Only. If dose administered, recheck potassium level 1 hour after infusion complete. For potassium level 3.4 to 3.8 mmol/L and Serum Creatinine 1.2 or less = 30 mEq For potassium level 3.1 to 3.3 mmol/L and Serum Creatinine 1.2 or less = 40 mEq For potassium level 3 mmol/L or less and Serum Creatinine 1.2 or less = 50 mEq For potassium level 3.4 to 3.8 mmol/L and Serum Creatinine greater than 1.2 = 20 mEq For potassium level 3.1 to 3.3 mmol/L and Serum Creatinine greater than 1.2 = 30 mEq For potassium level 3 mmol/L or less and Serum Creatinine greater than 1.2 = 40 mEq VESICANT (YELLOW) [Order 1 End] [Order 2 Start] Name: potassium chloride IVPB 10 mEq/100 mL in water (0.1 mEq/mL premix) Signed Summary: 10 mEq, intravenous, at 100 mL/hr, Administer over 60 Minutes, As needed, for potassium replacement, Starting on Sat09/30/23 at 0742, Administer Potassium Chloride IVPB in 10 mEq increments. Maximum infusion rates: Central Line = 20 mEq/hour; Peripheral Line = 10 mEq/hour (10 mEq/100 mL). If dose administered, recheck potassium level 1 hour after infusion complete. For potassium level 3.4 to 3.8 mmol/L and Serum Creatinine 1.2 or less = 30 mEq For potassium level 3.1 to 3.3 mmol/L and Serum Creatinine 1.2 or less = 40 mEq For potassium level 3 mmol/L or less and Serum Creatinine 1.2 or less = 50 mEq For potassium level 3.4 to 3.8 mmol/L and Serum Creatinine greater than 1.2 = 20 mEq For potassium level 3.1 to 3.3 mmol/L and Serum Creatinine greater than 1.2 = 30 mEq For potassium level 3 mmol/L or less and Serum Creatinine greater than 1.2 = 40 mEq VESICANT (YELLOW) Infuse each 10 mEq over a minimum of 1 hour. [Order 2 End] Start: 09-29-2023 End: 09-30-2023 100 mL/hr, intravenous, Cont inuous, Starting on 09/29/23 at 1200, For 20 hours, solution= dextrose 2.5 % Start: 09-28-2023 End: 09-29-2023 50 mL/hr, intravenous, Nicole nuous, Starting on 09/28/23 at 1115, solution= dextrose 2.5 % Start: 09-27-2023 End: 10-01-2023 take 15 mg by mouth every six hours 15 mg, oral, Every 6 hours, First dose (after last modification) on Sat09/27/23 at 1400, Hold for systolic greater than 130 once off all pressors Look-alike/sound-alike medication - verify indication for use. Start: 09-27-2023 End: 09-27-2023 5-15 mg/hr (5-15 mL/hr), int ravenous, Continuous, Starting on Sat09/27/23 at 0145, Initiate diltiazem infusion at 5 mg/hr. Titrate by 5 mg/hr every 15 minutes to achieve heart rate less than 120 bpm. Max rate 15 mg/hr. Look-alike/sound-alike medication - verify indication for use. Start: 09-27-2023 End: 09-28-2023 0.5-2.5 mcg/kg/min 124.9 kg (9.3675-46.8375 mL/hr, rounded to 9.4-46.8 mL/hr), intravenous, Continuous, Starting on Sat09/27/23 at 0015, Preferred central line administration. Start at 0.5 mcg/kg/min. Titrate by 0.2 mcg/kg/min every 5 min to achieve SBP 90. VESICANT (RED), Indication: Hypotension, Sequence of Pressors - Use this medication: First, Wean Sequence: Wean First Start: 09-24-2023 End: 09-30-2023 take 1000 mg intravenously every twenty-four hours 1,000 mg, intravenous, at 100 mL/hr, Administer over 30 Minutes, Every 24 hours, First dose on Sat09/24/23 at 0630, Look-alike/sound-alike medication - verify indication for use. Do not co-administer with calcium-containing solutions such as Lactated Ringers., Indication: UTI Start: 09-24-2023 take 10 mL intraveno usly every eight hours [Order 1 Start] Name: sodium chloride 0.9 % flush 10 mL Signed Summary: 10 mL, intravenous, Every 8 hours, First dose on Sat09/24/23 at 0430, Pigtail Port of Non-cuffed Dialysis Catheter for IV use. Aspirate lumen and discard volume THEN 0.9% Sodium Chloride 10 mL IVP THEN 4% sodium citrate (0.2 grams/5 mL) IVP equal to lumen volume every 8 hours. [Order 1 End] [Order 2 Start] Name: sodium citrate 4 % (3 mL) flush 2 mL Signed Summary: 2 mL, intravenous, Every 8 hours, First dose on Sat09/24/23 at 0430, Pigtail Port of Non-cuffed Dialysis Catheter for IV use. IVP equal to lumen volume, up to a maximum of 2 mL, every 8 hours. [Order 2 End] [Order 3 Start] Name: sodium chloride 0.9 % flush 10 mL Signed Summary: 10 mL, intravenous, As needed, line care, Starting on Sat09/24/23 at 0419, Pigtail Port of Non-cuffed Dialysis Catheter for IV use. Before use aspirate lumen and discard lumen volume THEN 0.9% Sodium Chloride 10 mL IVP. [Order 3 End] [Order 4 Start] Name: sodium chloride 0.9 % flush 10 mL Signed Summary: 10 mL, intravenous, As needed, line care, Starting on Sat09/24/23 at 0419, Pigtail Port of Non-cuffed Dialysis Catheter for IV use. 0.9% Sodium Chloride 10 mL IVP THEN 0.4% sodium citrate (0.2 grams/5 mL) IVP equal to lumen volume after use. [Order 4 End] [Order 5 Start] Name: sodium citrate 4 % (3 mL) flush 2 mL Signed Summary: 2 mL, intravenous, As needed, line care, Starting on Sat09/24/23 at 0419, Pigtail Port of Non-cuffed Dialysis Catheter for IV use. IVP equal to lumen volume, up to a maximum of 2 mL, after use. [Order 5 End] Start: 09-20-2023 End: 09-29-2023 3 mg, intravenous, at 124 mL /hr, Administer over 30 Minutes, 2 times daily, First dose on Sat09/20/23 at 1230 Start: 09-20-2023 End: 09-22-2023 take 1000 mg intravenously every twenty-four hours 1,000 mg, intravenous, at 100 mL/hr, Administer over 30 Minutes, Every 24 hours, First dose on Sat09/20/23 at 1130, Look-alike/sound-alike medication - verify indication for use. Do not co-administer with calcium-containing solutions such as Lactated Ringers., Indication: Sepsis Start: 09-20-2023 [Order 1 Start ] Name: dextrose 50 % in water (D50W) 50% solution 25 g Signed Summary: 25 g, intravenous, Once as needed, low blood sugar, as needed for Pre-insulin glucose level 150-250 mg/dL, Starting on Sat09/20/23 at 0901, For 1 dose, VESICANT (RED) Warning: HYPERTONIC solution. [Order 1 End] [Order 2 Start] Name: dextrose 50 % in water (D50W) 50% solution 50 g Signed Summary: 50 g, intravenous, Once as needed, low blood sugar, as needed for Pre-insulin glucose level less than 150 mg/dL, Starting on Sat09/20/23 at 0901, For 1 dose, VESICANT (RED) Warning: HYPERTONIC solution. [Order 2 End] Start: 09-20-2023 End: 09-20-2023 take 125 mL intravenously every hour 125 mL/hr, intravenous, Continuous, Starting on Sat09/20/23 at 0900 Start: 09-20-2023 End: 09-20-2023 5 mg, intravenous, at 101 mL /hr, Administer over 30 Minutes, Once, On Sat09/20/23 at 0715, For 1 dose (2 sources) Start: 09-22-2023 End: 09-23-2023 0.01-0.2 mcg/kg/min 131 kg ( 2.4563-49.125 mL/hr, rounded to 2.5-49.1 mL/hr), intravenous, Continuous, Starting on Sat09/22/23 at 1030, Preferred central line administration. Start at 0.04 mcg/kg/min. Titrate by 0.02 mcg/kg/min every 5 min to achieve SBP >100. VESICANT (RED) Requires Smart Pump., Indication: Hypotension, Sequence of Pressors - Use this medication: First, Wean Sequence: Wean First Start: 09-20-2023 End: 09-22-2023 0.01-0.2 mcg/kg/min 132 kg ( 2.475-49.5 mL/hr, rounded to 2.5- 49.5 mL/hr), intravenous, Continuous, Starting on Sat09/20/23 at 0745, Preferred central line administration. Start at 0.04 mcg/kg/min. Titrate by 0.02 mcg/kg/min every 5 min to achieve MAP 65. VESICANT (RED) Requires Smart Pump., Indication: Hypotension, Sequence of Pressors - Use this medication: First, Wean Sequence: Wean First (1 source) Start: 09-22-2023 End: 09-30-2023 200 mg, intravenous, at 440 mL/hr, Administer over 15 Minutes, Every other day, First dose on 09/22/23 at 1000, For 5 doses, Monitor patient for hypersensitivity reactions for at least 30 minutes after the infusion. AVOID the use of H1 antihistamines, such as diphenhydramine, as this may worsen hypersensitivity reactions. Have resuscitation equipment and medications available. (2 sources) Start: 12-04-2023 (1 source) Start: 12-27-2023 End: 12-27-2023 10 mmol (rounded from 11.77 mmol = 0.1 mmol/kg 117.7 kg), intravenous, Once in imaging, contrast, MRI, Starting on Sat12/27/23 at 1520, For 1 dose, Additional Imaging Orders, VESICANT (RED), Indications: magnetic resonance imaging (1 source) Start: 12-22-2023 End: 12-22-2023 1 mg, intravenous, Once, On 12/22/23 at 1235, For 1 dose, Look-alike/sound-alike medication - verify indication for use. (1 source) Start: 12-22-2023 End: 12-22-2023 1,750 mg (rounded from 1,800 mg = 20 mg/kg 90 kg Order-specific weight), intravenous, at 268 mL/hr, Administer over 120 Minutes, Once, On 12/22/23 at 1230, For 1 dose, VESICANT (YELLOW), Indication: Skin and soft tissue infection Problems Active Problems Problem Classification Problem Date Documented Da te Episodic/Chronic Bacterial infection; unspecified site (11 sources) Bacteremia; Translations: [Bacteremia] Onset: 10-18-2023 10-31-2023 Episodic Cancer of rectum and anus (5 sources) Malignant tumor of rectum; Translations: [Malignant neoplasm of rectum] Onset: 12-22-2023 12-16-2023 Chronic Cardiac dysrhythmias (20 sources) Typical atrial flutter; Translations: [Typical atrial flutter] Onset: 02-16-2021 03-15-2021 Chronic Cardiac dysrhythmias (17 sources) Tachycardia-induced cardiomyopathy; Translations: [Tachycardia, unspecified] Onset: 03-15-2021 08-28-2021 Episodic Chronic kidney disease (11 sources) Chronic kidney disease stage 4; Translations: [Chronic kidney disease, stage 4 (severe)] Onset: 10-18-2023 10-31-2023 Chronic Chronic ulcer of skin (20 sources) Non-pressure chronic ulcer of back with unspecified severity; Translations: [Skin ulcer] Onset: 10-18-2023 10-18-2023 Chronic Congestive heart failure; nonhypertensive (17 sources) Acute combined systolic and diastolic heart failure; Translations: [Acute combined systolic (congestive) and diastolic (congestive) heart failure] Onset: 09-03-2023 09-03-2023 Chronic Coronary atherosclerosis and other heart disease (15 sources) Coronary arteriosclerosis; Translations: [Atherosclerotic heart disease of [place] coronary artery without angina pectoris] Onset: 02-22-2021 09-03-2023 Chronic Deficiency and other anemia (11 sources) Anemia due to blood loss; Translations: [Iron deficiency anemia secondary to blood loss (chronic)] Onset: 10-18-2023 10-22-2023 Chronic Deficiency and other anemia (1 source) Iron deficiency anemia secondary to blood loss (chronic); Translations: [Iron deficiency anemia secondary to blood loss (chronic)] Onset: 11-15-2023 Chronic Deficiency and other anemia (2 sources) Anemia, unspecified; Translations: [Anemia, unspecified] Onset: 09-20-2023 Episodic Deficiency and other anemia (11 sources) Anemia; Translations: [Anemia, unspecified] Onset: 10-18-2023 10-22-2023 Episodic Diabetes mellitus with complications (17 sources) Type 2 diabetes mellitus; Translations: [Type 2 diabetes mellitus with other circulatory complications] Onset: 04-21-2021 09-03-2023 Chronic Disorders of lipid metabolism (15 sources) Hyperlipidemia; Translations: [Other hyperlipidemia] Onset: 04-21-2021 09-03-2023 Chronic Esophageal disorders (1 source) Esophagitis; Translations: [Esophagitis] 12-09-2023 Episodic Heart valve disorders (1 source) Unspecified abnormalities of heart beat; Translations: [Unspecified abnormalities of heart beat] Onset: 12-22-2023 Episodic Infective arthritis and osteomyelitis (except that caused by tuberculosis or sexually transmitted disease) (1 source) Osteomyelitis, unspecified; Translations: [Osteomyelitis, unspecified] Onset: 10-19-2023 Chronic Malaise and fatigue (1 source) Weakness; Translations: [Weakness] Onset: 09-20-2023 Episodic Nonspecific chest pain (1 source) Chest pain, unspecified; Translations: [Chest pain, unspecified] Onset: 12-22-2023 Episodic Nutritional deficiencies (9 sources) Moderate protein energy malnutrition; Translations: [Moderate protein-calorie malnutrition] Onset: 11-23-2023 11-23-2023 Chronic Open wounds of extremities (18 sources) Open wound of right forearm; Translations: [Laceration without foreign body of right forearm, initial encounter] Onset: 11-19-2023 11-19-2023 Episodic Open wounds of head; neck; and trunk (2 sources) Wound of abdomen; Translations: [Unspecified open wound of abdominal wall, unspecified quadrant without penetration into peritoneal cavity, initial encounter] Onset: 12-22-2023 12-22-2023 Episodic Other circulatory disease (1 source) Hypotension, unspecified; Translations: [Hypotension, unspecified] Onset: 09-20-2023 Episodic Other hereditary and degenerative nervous system conditions (11 sources) Myoclonus; Translations: [Myoclonus] Onset: 10-20-2023 10-20-2023 Chronic Other injuries and conditions due to external causes (1 source) Hypothermia, initial encounter; Translations: [Hypothermia, initial encounter] Onset: 09-20-2023 Episodic Other lower respiratory disease (11 sources) Respiratory distress; Translations: [Acute respiratory distress] Onset: 10-19-2023 10-19-2023 Episodic Other lower respiratory disease (1 source) Acute respiratory distress; Translations: [Acute respiratory distress] Onset: 11-15-2023 Episodic Other lower respiratory disease (1 source) Wheezing; Translations: [Wheezing] Onset: 10-19-2023 Episodic Other nervous system disorders (1 source) Metabolic encephalopathy; Translations: [Metabolic encephalopathy] Onset: 09-20-2023 Chronic Other nervous system disorders (1 source) Other acute postprocedural pain; Translations: [Other acute postprocedural pain] Onset: 10-19-2023 Episodic Other screening for suspected conditions (not mental disorders or infectious disease) (3 sources) Abnormal coagulation profile; Translations: [Other specified abnormal findings of blood chemistry] Onset: 09-20-2023 Episodic Pneumonia (except that caused by tuberculosis or sexually transmitted disease) (2 sources) Infective pneumonia; Translations: [Pneumonia, unspecified organism] Onset: 12-22-2023 12-22-2023 Episodic Residual codes; unclassified (1 source) Altered mental status, unspecified; Translations: [Altered mental status, unspecified] Onset: 10-17-2023 Episodic Residual codes; unclassified (12 sources) Altered mental status; Translations: [Altered mental status, unspecified] Onset: 10-17-2023 10-31-2023 Episodic Septicemia (except in labor) (5 sources) Septic shock; Translations: [Sepsis, unspecified organism] Onset: 12-22-2023 Resolved: 12-28-2023 12-22-2023 Episodic Shock (1 source) Severe sepsis with septic shock; Translations: [Severe sepsis with septic shock] Onset: 12-28-2023 Episodic Skin and subcutaneous tissue infections (1 source) Local infection of the skin and subcutaneous tissue, unspecified; Translations: [Local infection of the skin and subcutaneous tissue, unspecified] Onset: 12-22-2023 Episodic Unclassified (1 source) High Blood Sugar - Symptomatic Onset: 10-17-2023 Unclassified (1 source) Weakness - Generalized Onset: 10-17-2023 Unclassified (1 source) ILL Onset: 10-17-2023 Unclassified (1 source) Acidosis, unspecified; Translations: [Acidosis, unspecified] Onset: 09-20-2023 Unclassified (1 source) Elevated HR per EMS that was taking her back [facility] Onset: 12-22-2023 Urinary tract infections (12 sources) Urinary tract infection, site not specified; Translations: [Acute urinary tract infection] Onset: 10-17-2023 10-17-2023 Episodic Past or Other Problems Problem Classification Problem Date Documented Da te Episodic/Chronic Acute and unspecified renal failure (20 sources) Acute injury of kidney; Translations: [Acute kidney failure, unspecified] Onset: 09-03-2023 09-03-2023 Episodic Fluid and electrolyte disorders (20 sources) Hyperkalemia; Translations: [Hyperkalemia] Onset: 09-03-2023 09-03-2023 Episodic Mood disorders (13 sources) Mood disorders Onset: 09-20-2023 09-20-2023 Nutritional deficiencies (2 sources) Folic acid deficiency; Translations: [Deficiency of other specified B group vitamins] Onset: 09-20-2023 09-25-2023 Episodic Other ear and sense organ disorders (15 sources) Excessive cerumen in ear canal ; Translations: [Impacted cerumen, bilateral] Onset: 09-02-2018 09-02-2018 Episodic Residual codes; unclassified (15 sources) Bilateral lower limb edema; Translations: [Localized edema] Onset: 09-03-2023 09-03-2023 Episodic Results Test Name Value Interpretation Reference Range Facility Documentationon 02-12-2024 Documentation [id number] Correa 1955 F Date Provider Department Center 02/12/2024 SD TAN [facility] SURG Second Fl No family history on file Normal [facility] BASIC METABOLIC PANELon 12-30 Anion gap [Moles/Vol] 11 mmol/L Normal 7-20 [facility] Comment on above: Performed By: #### L [id number] #### [facility] [address] [place] [address] Calcium [Mass/Vol] 7.5 mg/dL Low 8.6-10.3 [facility] Comment on above: Performed By: #### L [id number] #### [facility] LAB (BEAKER) [address] [place] [address] Chloride [Moles/Vol] 104 mmol/L Normal 98-107 [facility] Comment on above: Performed By: #### L [id number] #### [facility] [address] [place] [address] CO2 [Moles/Vol] 24 mmol/L Normal 21-31 [facility] Comment on above: Performed By: #### L [id number] #### [facility] HOSPITAL LAB (BEAKER) [address] [place] [address] Creatinine [Mass/Vol] 1.33 mg/dL High 0.60-1.20 [facility] Comment on above: Performed By: #### L [id number] #### [facility] ([facility]) [address] [place] [address] GLOMERULAR FILTRATION RATE ML/MIN/1.73 SQ M.PREDICTED 44.1 mL/min/1.73m*2 Low >60.0 [facility] Comment on above: Result Comment: The [facility]???s estimated glomerular filtration rate (eGFR) will no longer include consideration of race in its calculation. The National Kidney Foundation???s eGFR Task Force developed new recommendations for the estimation of the glomerular filtration rate in the [place] They recommend immediate implementation of the new equation refit without the race variable in all laboratories because the calculation does not include race. In addition to not including race in the calculation and reporting, it included diversity in its development, and has acceptable performance characteristics and potential consequences that do not disproportionately affect any one group of individuals. Performed By: #### L [id number] #### [facility] ([facility]) [address] [place] [address] Glucose [Mass/Vol] 112 mg/dL High 70-100 [facility] Comment on above: Performed By: #### L [id number] #### [facility] ([facility]) [address] [facility] [place] [address] Potassium [Moles/Vol] 3.4 mmol/L Low 3.5-5.1 [facility] Comment on above: Performed By: #### L [id number] #### [facility] [address] [facility] [address] Sodium [Moles/Vol] 136 mmol/L Normal 136-145 [facility] Comment on above: Performed By: #### L [id number] #### [facility] ([facility]) [address] [place] [address] Urea nitrogen [Mass/Vol] 20 mg/dL Normal 7-25 [facility] Comment on above: Performed By: #### L [id number] #### [facility] ([facility]) [address] [facility] [place] [address] UREA NITROGEN/CREATININ E (MASS RATIO) IN SER/PLAS 15.0 Normal [facility] Comment on above: Performed By: #### L [id number] #### [facility] ([facility]) [address] [facility] [place] [address] CBC WITH AUTO DIFFERENTIALon 01-20-2024 Basophils (Bld) [#/Vol] 0.05 10*3/uL Normal 0.00-0.20 [facility] Comment on above: Performed By: #### L [id number] #### [facility] ([facility]) [address] [facility] [place] [address] Basophils/100 WBC (Bld) 0.6 % Normal 0.0-1.0 [facility] Comment on above: Performed By: #### L [id number] #### [facility] ([facility]) [address] [place] [address] Eosinophils (Bld) [#/Vol] 0.17 10*3/uL Normal 0.00-0.50 [facility] Comment on above: Performed By: #### L [id number] #### [facility] ([facility]) [address] [place] [address] Eosinophils/100 WBC (Bld) 2.2 % Normal 0.0-6.0 [facility] Comment on above: Performed By: #### L [id number] #### [facility] ([facility]) [address] [place] [address] Erythrocyte distribution width (RBC) [Ratio] 15.9 % High 11.5-15.0 [facility] Comment on above: Performed By: #### L [id number] #### [facility] ([facility]) [address] [place] [address] ERYTHROCYTE MEAN CORPUSCULAR HEMOGLOBIN CONCENTRATION (G/DL) BY AUTOMATED 32.4 g/dL Normal 32.0-35.0 [facility] Comment on above: Performed By: #### L [id number] #### [facility] [address] [place] [address] Hematocrit (Bld) [Volume fraction] 25.9 % Low 36.0-48.0 [facility] Comment on above: Performed By: #### L [id number] #### [facility] [address] [place] [address] Hemoglobin (Bld) [Mass/Vol] 8.4 g/dL Low 12.0-15.0 [facility] Comment on above: Performed By: #### L [id number] #### [facility] ([facility]) [address] [place] [address] Immature granulocytes (Bld) [#/Vol] 0.05 10*3/uL Normal 0.00-0.20 [facility] Comment on above: Performed By: #### L [id number] #### [facility] ([facility]) [address] [place] [address] Immature granulocytes/100 WBC (Bld) 0.6 % Normal 0.0-1.0 [facility] Comment on above: Performed By: #### L [id number] #### [facility] ([facility]) [address] [place] [address] Lymphocytes (Bld) [#/Vol] 1.74 10*3/uL Normal 1.20-4.00 [facility] Comment on above: Performed By: #### L [id number] #### [facility] ([facility]) [address] [place] [address] Lymphocytes/100 WBC (Bld) 22.1 % Normal 20.0-45.0 [facility] Comment on above: Performed By: #### L [id number] #### [facility] [address] [place] [address] MCH (RBC) [Entitic mass] 29.9 pg Normal 27.0-33.0 [facility] Comment on above: Performed By: #### L [id number] #### [facility] [address] [place] [address] MCV (RBC) [Entitic vol] 92.2 fL Normal 82.0-98.0 [facility] Comment on above: Performed By: #### L [id number] #### [facility] ([facility]) [address] [place] [address] Monocytes (Bld) [#/Vol] 0.77 10*3/uL Normal 0.10-1.00 [facility] Comment on above: Performed By: #### L [id number] #### [facility] ([facility]) [address] [place] [address] Monocytes/100 WBC (Bld) 9.8 % Normal 5.0-12.0 [facility] Comment on above: Performed By: #### L [id number] #### [facility] ([facility]) [address] [place] [address] Neutrophils (Bld) [#/Vol] 5.08 10*3/uL Normal 1.60-7.60 [facility] Comment on above: Performed By: #### L [id number] #### [facility] ([facility]) [address] [place] [address] Neutrophils/100 WBC (Bld) 64.7 % Normal 40.0-72.0 [facility] Comment on above: Performed By: #### L [id number] #### [facility] ([facility]) [address] [place] [address] NRBC (PER 100 WBCS) BY AUTOMATED COUNT 0.0 % Normal 0 [facility] Comment on above: Performed By: #### L [id number] #### [facility] ([facility]) [address] [place] [address] PLATELETS (10*3/UL) IN BLOOD AUTOMATED COUNT 129 10*3/uL Low 150-400 [facility] Comment on above: Performed By: #### L [id number] #### [facility] [address] [place] [address] RBC (Bld) [#/Vol] 2.81 10*6/uL Low 3.80-5.00 [facility] Comment on above: Performed By: #### L [id number] #### [facility] ([facility]) [address] [place] [address] WBC (Bld) [#/Vol] 7.86 10*3/uL Normal 4.00-10.60 [facility] Comment on above: Performed By: #### L [id number] #### [facility] ([facility]) [address] [place] [address] MAGNESIUMon 01-20-2024 Magnesium [Mass/Vol] 1.9 mg/dL Normal 1.9-2.7 [facility] Comment on above: Performed By: #### L [id number] #### [facility] ([facility]) [address] [place] [address] BASIC METABOLIC PANELon 12-30 Anion gap [Moles/Vol] 11 mmol/L Normal 7-20 [facility] Comment on above: Performed By: #### L [id number] #### [facility] ([facility]) [address] [place] [address] Calcium [Mass/Vol] 7.6 mg/dL Low 8.6-10.3 [facility] Comment on above: Performed By: #### L [id number] #### [facility] ([facility]) [address] [place] [address] Chloride [Moles/Vol] 106 mmol/L Normal 98-107 [facility] Comment on above: Performed By: #### L [id number] #### [facility] ([facility]) [address] [place] [address] CO2 [Moles/Vol] 23 mmol/L Normal 21-31 [facility] Comment on above: Performed By: #### L [id number] #### [facility] ([facility]) [address] [place] [address] Creatinine [Mass/Vol] 1.14 mg/dL Normal 0.60-1.20 [facility] Comment on above: Performed By: #### L [id number] #### [facility] ([facility]) [address] [place] [address] GLOMERULAR FILTRATION RATE ML/MIN/1.73 SQ M.PREDICTED 53.1 mL/min/1.73m*2 Low >60.0 [facility] Comment on above: Result Comment: The [facility]???s estimated glomerular filtration rate (eGFR) will no longer include consideration of race in its calculation. The National Kidney Foundation???s eGFR Task Force developed new recommendations for the estimation of the glomerular filtration rate in the [place] They recommend immediate implementation of the new equation refit without the race variable in all laboratories because the calculation does not include race. In addition to not including race in the calculation and reporting, it included diversity in its development, and has acceptable performance characteristics and potential consequences that do not disproportionately affect any one group of individuals. Performed By: #### L [id number] #### [facility] ([facility]) [address] [place] [address] Glucose [Mass/Vol] 95 mg/dL Normal 70-100 [facility] Comment on above: Performed By: #### L [id number] #### [facility] ([facility]) [address] [place] [address] Potassium [Moles/Vol] 3.2 mmol/L Low 3.5-5.1 [facility] Comment on above: Performed By: #### L [id number] #### [facility] ([facility]) [address] [place] [address] Sodium [Moles/Vol] 137 mmol/L Normal 136-145 [facility] Comment on above: Performed By: #### L [id number] #### [facility] ([facility]) [address] [place] [address] Urea nitrogen [Mass/Vol] 17 mg/dL Normal 7-25 [facility] Comment on above: Performed By: #### L [id number] #### [facility] ([facility]) [address] [facility] [place] [address] UREA NITROGEN/CREATININ E (MASS RATIO) IN SER/PLAS 14.9 Normal [facility] Comment on above: Performed By: #### L [id number] #### [facility] ([facility]) [address] [place] [address] CBC WITH AUTO DIFFERENTIALon 01-18-2024 Basophils (Bld) [#/Vol] 0.05 10*3/uL Normal 0.00-0.20 [facility] Comment on above: Performed By: #### L [id number] #### [facility] ([facility]) [address] [place] [address] Basophils/100 WBC (Bld) 0.6 % Normal 0.0-1.0 [facility] Comment on above: Performed By: #### L [id number] #### [facility] ([facility]) [address] [place] [address] Eosinophils (Bld) [#/Vol] 0.23 10*3/uL Normal 0.00-0.50 [facility] Comment on above: Performed By: #### L [id number] #### [facility] ([facility]) [address] [place] [address] Eosinophils/100 WBC (Bld) 2.8 % Normal 0.0-6.0 [facility] Comment on above: Performed By: #### L [id number] #### [facility] ([facility]) [address] [place] [address] Erythrocyte distribution width (RBC) [Ratio] 15.9 % High 11.5-15.0 [facility] Comment on above: Performed By: #### L [id number] #### [facility] ([facility]) [address] [place] [address] ERYTHROCYTE MEAN CORPUSCULAR HEMOGLOBIN CONCENTRATION (G/DL) BY AUTOMATED 32.2 g/dL Normal 32.0-35.0 [facility] Comment on above: Performed By: #### L [id number] #### [facility] ([facility]) [address] [place] [address] Hematocrit (Bld) [Volume fraction] 26.7 % Low 36.0-48.0 [facility] Comment on above: Performed By: #### L [id number] #### [facility] [address] [place] [address] Hemoglobin (Bld) [Mass/Vol] 8.6 g/dL Low 12.0-15.0 [facility] Comment on above: Performed By: #### L [id number] #### [facility] [address] [place] [address] Immature granulocytes (Bld) [#/Vol] 0.03 10*3/uL Normal 0.00-0.20 [facility] Comment on above: Performed By: #### L [id number] #### [facility] ([facility]) [address] [place] [address] Immature granulocytes/100 WBC (Bld) 0.4 % Normal 0.0-1.0 [facility] Comment on above: Performed By: #### L [id number] #### [facility] [address] [place] [address] Lymphocytes (Bld) [#/Vol] 1.88 10*3/uL Normal 1.20-4.00 [facility] Comment on above: Performed By: #### L [id number] #### [facility] [address] [place] [address] Lymphocytes/100 WBC (Bld) 23.2 % Normal 20.0-45.0 [facility] Comment on above: Performed By: #### L [id number] #### [facility] [address] [place] [address] MCH (RBC) [Entitic mass] 29.5 pg Normal 27.0-33.0 [facility] Comment on above: Performed By: #### L [id number] #### [facility] [address] [place] [address] MCV (RBC) [Entitic vol] 91.4 fL Normal 82.0-98.0 [facility] Comment on above: Performed By: #### L [id number] #### [facility] ([facility]) [address] [place] [address] Monocytes (Bld) [#/Vol] 0.86 10*3/uL Normal 0.10-1.00 [facility] Comment on above: Performed By: #### L [id number] #### [facility] ([facility]) [address] [place] [address] Monocytes/100 WBC (Bld) 10.6 % Normal 5.0-12.0 [facility] Comment on above: Performed By: #### L [id number] #### [facility] ([facility]) [address] [place] [address] Neutrophils (Bld) [#/Vol] 5.07 10*3/uL Normal 1.60-7.60 [facility] Comment on above: Performed By: #### L [id number] #### [facility] ([facility]) [address] [place] [address] Neutrophils/100 WBC (Bld) 62.4 % Normal 40.0-72.0 [facility] Comment on above: Performed By: #### L [id number] #### [facility] ([facility]) [address] [place] [address] NRBC (PER 100 WBCS) BY AUTOMATED COUNT 0.0 % Normal 0 [facility] Comment on above: Performed By: #### L [id number] #### [facility] ([facility]) [address] [place] [address] PLATELETS (10*3/UL) IN BLOOD AUTOMATED COUNT 133 10*3/uL Low 150-400 [facility] Comment on above: Performed By: #### L [id number] #### [facility] [address] [place] [address] RBC (Bld) [#/Vol] 2.92 10*6/uL Low 3.80-5.00 [facility] Comment on above: Performed By: #### L [id number] #### [facility] [address] [place] [address] WBC (Bld) [#/Vol] 8.12 10*3/uL Normal 4.00-10.60 [facility] Comment on above: Performed By: #### L [id number] #### [facility] ([facility]) [address] [place] [address] MAGNESIUMon 01-18-2024 Magnesium [Mass/Vol] 1.7 mg/dL Low 1.9-2.7 [facility] Comment on above: Performed By: #### L [id number] #### [facility] ([facility]) [address] [place] [address] BASIC METABOLIC PANELon 12-29 Anion gap [Moles/Vol] 13 mmol/L Normal - [facility] Comment on above: Performed By: #### L [id number] #### [facility] ([facility]) [address] [place] [address] Calcium [Mass/Vol] 7.3 mg/dL Low 8.6-10.3 [facility] Comment on above: Performed By: #### L [id number] #### [facility] ([facility]) [address] [place] [address] Chloride [Moles/Vol] 105 mmol/L Normal 98-107 [facility] Comment on above: Performed By: #### L [id number] #### [facility] [address] [place] [address] CO2 [Moles/Vol] 24 mmol/L Normal 21-31 [facility] Comment on above: Performed By: #### L [id number] #### [facility] ([facility]) [address] [place] [address] Creatinine [Mass/Vol] 1.11 mg/dL Normal 0.60-1.20 [facility] Comment on above: Performed By: #### L [id number] #### [facility] ([facility]) [address] [place] [address] GLOMERULAR FILTRATION RATE ML/MIN/1.73 SQ M.PREDICTED 54.8 mL/min/1.73m*2 Low >60.0 [facility] Comment on above: Result Comment: The [facility]???s estimated glomerular filtration rate (eGFR) will no longer include consideration of race in its calculation. The National Kidney Foundation???s eGFR Task Force developed new recommendations for the estimation of the glomerular filtration rate in the [place] They recommend immediate implementation of the new equation refit without the race variable in all laboratories because the calculation does not include race. In addition to not including race in the calculation and reporting, it included diversity in its development, and has acceptable performance characteristics and potential consequences that do not disproportionately affect any one group of individuals. Performed By: #### L [id number] #### [facility] ([facility]) [address] [place] [address] Glucose [Mass/Vol] 110 mg/dL High 70-100 [facility] Comment on above: Performed By: #### L [id number] #### [facility] ([facility]) [address] [place] [address] Potassium [Moles/Vol] 3.5 mmol/L Normal 3.5-5.1 [facility] Comment on above: Performed By: #### L [id number] #### [facility] ([facility]) [address] [place] [address] Sodium [Moles/Vol] 138 mmol/L Normal 136-145 [facility] Comment on above: Performed By: #### L [id number] #### [facility] ([facility]) [address] [facility] [place] [address] Urea nitrogen [Mass/Vol] 14 mg/dL Normal 7-25 [facility] Comment on above: Performed By: #### L [id number] #### [facility] ([facility]) [address] [place] [address] UREA NITROGEN/CREATININ E (MASS RATIO) IN SER/PLAS 12.6 Normal [facility] Comment on above: Performed By: #### L [id number] #### [facility] ([facility]) [address] [place] [address] CBC WITH AUTO DIFFERENTIALon 01-15-2024 Basophils (Bld) [#/Vol] 0.05 10*3/uL Normal 0.00-0.20 [facility] Comment on above: Performed By: #### L [id number] #### [facility] ([facility]) [address] [place] [address] Basophils/100 WBC (Bld) 0.7 % Normal 0.0-1.0 [facility] Comment on above: Performed By: #### L [id number] #### [facility] ([facility]) [address] [place] [address] Eosinophils (Bld) [#/Vol] 0.18 10*3/uL Normal 0.00-0.50 [facility] Comment on above: Performed By: #### L [id number] #### [facility] ([facility]) [address] [place] [address] Eosinophils/100 WBC (Bld) 2.4 % Normal 0.0-6.0 [facility] Comment on above: Performed By: #### L [id number] #### [facility] ([facility]) [address] [place] [address] Erythrocyte distribution width (RBC) [Ratio] 16.3 % High 11.5-15.0 [facility] Comment on above: Performed By: #### L [id number] #### [facility] ([facility]) [address] [place] [address] ERYTHROCYTE MEAN CORPUSCULAR HEMOGLOBIN CONCENTRATION (G/DL) BY AUTOMATED 33.1 g/dL Normal 32.0-35.0 [facility] Comment on above: Performed By: #### L [id number] #### [facility] ([facility] [address] [place] [address] Hematocrit (Bld) [Volume fraction] 24.5 % Low 36.0-48.0 [facility] Comment on above: Performed By: #### L [id number] #### [facility] ([facility]) [address] [place] [address] Hemoglobin (Bld) [Mass/Vol] 8.1 g/dL Low 12.0-15.0 [facility] Comment on above: Performed By: #### L [id number] #### [facility] ([facility]) [address] [place] [address] Immature granulocytes (Bld) [#/Vol] 0.03 10*3/uL Normal 0.00-0.20 [facility] Comment on above: Performed By: #### L [id number] #### [facility] ([facility]) [address] [place] [address] Immature granulocytes/100 WBC (Bld) 0.4 % Normal 0.0-1.0 [facility] Comment on above: Performed By: #### L [id number] #### [facility] ([facility]) [address] [place] [address] Lymphocytes (Bld) [#/Vol] 1.89 10*3/uL Normal 1.20-4.00 [facility] Comment on above: Performed By: #### L [id number] #### [facility] ([facility]) [address] [place] [address] Lymphocytes/100 WBC (Bld) 25.2 % Normal 20.0-45.0 [facility] Comment on above: Performed By: #### L [id number] #### [facility] ([facility] [address] [place] [address] MCH (RBC) [Entitic mass] 30.1 pg Normal 27.0-33.0 [facility] Comment on above: Performed By: #### L [id number] #### [facility] ([facility]) [address] [place] [address] MCV (RBC) [Entitic vol] 91.1 fL Normal 82.0-98.0 [facility] Comment on above: Performed By: #### L [id number] #### [facility] ([facility]) [address] [place] [address] Monocytes (Bld) [#/Vol] 0.70 10*3/uL Normal 0.10-1.00 [facility] Comment on above: Performed By: #### L [id number] #### [facility] ([facility]) [address] [place] [address] Monocytes/100 WBC (Bld) 9.3 % Normal 5.0-12.0 [facility] Comment on above: Performed By: #### L [id number] #### [facility] ([facility]) [address] [place] [address] Neutrophils (Bld) [#/Vol] 4.65 10*3/uL Normal 1.60-7.60 [facility] Comment on above: Performed By: #### L [id number] #### [facility] ([facility]) [address] [place] [address] Neutrophils/100 WBC (Bld) 62.0 % Normal 40.0-72.0 [facility] Comment on above: Performed By: #### L [id number] #### [facility] ([facility]) [address] [place] [address] NRBC (PER 100 WBCS) BY AUTOMATED COUNT 0.0 % Normal 0 [facility] Comment on above: Performed By: #### L [id number] #### [facility] ([facility]) [address] [place] [address] PLATELETS (10*3/UL) IN BLOOD AUTOMATED COUNT 129 10*3/uL Low 150-400 [facility] Comment on above: Performed By: #### L [id number] #### [facility] ([facility]) [address] [place] [address] RBC (Bld) [#/Vol] 2.69 10*6/uL Low 3.80-5.00 [facility] Comment on above: Performed By: #### L [id number] #### [facility] ([facility]) [address] [place] [address] WBC (Bld) [#/Vol] 7.50 10*3/uL Normal 4.00-10.60 [facility] Comment on above: Performed By: #### L [id number] #### [facility] ([facility]) [address] [place] [address] MAGNESIUMon 01-15-2024 Magnesium [Mass/Vol] 1.8 mg/dL Low 1.9-2.7 [facility] Comment on above: Performed By: #### L [id number] #### [facility] ([facility]) [address] [place] [address] BASIC METABOLIC PANELon 12-29 Anion gap [Moles/Vol] 13 mmol/L Normal 7-20 [facility] Comment on above: Performed By: #### L [id number] #### [facility] [address] [place] [address] Calcium [Mass/Vol] 7.1 mg/dL Low 8.6-10.3 [facility] Comment on above: Performed By: #### L [id number] #### [facility] ([facility] [address] [place] [address] Chloride [Moles/Vol] 105 mmol/L Normal 98-107 [facility] Comment on above: Performed By: #### L [id number] #### [facility] ([facility]) [address] [place] [address] CO2 [Moles/Vol] 23 mmol/L Normal 21-31 [facility] Comment on above: Performed By: #### L [id number] #### [facility] [address] [place] [address] Creatinine [Mass/Vol] 1.04 mg/dL Normal 0.60-1.20 [facility] Comment on above: Performed By: #### L [id number] #### [facility] ([facility]) [address] [place] [address] GLOMERULAR FILTRATION RATE ML/MIN/1.73 SQ M.PREDICTED 59.3 mL/min/1.73m*2 Low >60.0 [facility] Comment on above: Result Comment: The [facility]???s estimated glomerular filtration rate (eGFR) will no longer include consideration of race in its calculation. The National Kidney Foundation???s eGFR Task Force developed new recommendations for the estimation of the glomerular filtration rate in the [place] They recommend immediate implementation of the new equation refit without the race variable in all laboratories because the calculation does not include race. In addition to not including race in the calculation and reporting, it included diversity in its development, and has acceptable performance characteristics and potential consequences that do not disproportionately affect any one group of individuals. Performed By: #### L [id number] #### [facility] ([facility]) [address] [place] [address] Glucose [Mass/Vol] 75 mg/dL Normal 70-100 [facility] Comment on above: Performed By: #### L [id number] #### [facility] ([facility]) [address] [place] [address] Potassium [Moles/Vol] 3.0 mmol/L Low 3.5-5.1 [facility] Comment on above: Performed By: #### L [id number] #### [facility] ([facility]) [address] [place] [address] Sodium [Moles/Vol] 138 mmol/L Normal 136-145 [facility] Comment on above: Performed By: #### L [id number] #### [facility] ([facility]) [address] [place] [address] Urea nitrogen [Mass/Vol] 14 mg/dL Normal 7-25 [facility] Comment on above: Performed By: #### L [id number] #### [facility]) [address] [place] [address] UREA NITROGEN/CREATININ E (MASS RATIO) IN SER/PLAS 13.5 Normal [facility] Comment on above: Performed By: #### L [id number] #### [facility]) [address] [place] [address] CBCon 01-12-2024 Erythrocyte distribution width (RBC) [Ratio] 15.9 % High 11.5-15.0 [facility] Comment on above: Performed By: #### L [id number] #### [facility] ([facility]) [address] [place] [address] ERYTHROCYTE MEAN CORPUSCULAR HEMOGLOBIN CONCENTRATION (G/DL) BY AUTOMATED 32.4 g/dL Normal 32.0-35.0 [facility] Comment on above: Performed By: #### L [id number] #### [facility] ([facility]) [address] [place] [address] Hematocrit (Bld) [Volume fraction] 27.2 % Low 36.0-48.0 [facility] Comment on above: Performed By: #### L [id number] #### [facility] ([facility]) [address] [place] [address] Hemoglobin (Bld) [Mass/Vol] 8.8 g/dL Low 12.0-15.0 [facility] Comment on above: Performed By: #### L [id number] #### [facility] ([facility]) [address] [place] [address] MCH (RBC) [Entitic mass] 29.2 pg Normal 27.0-33.0 [facility] Comment on above: Performed By: #### L [id number] #### [facility] ([facility]) [address] [place] [address] MCV (RBC) [Entitic vol] 90.4 fL Normal 82.0-98.0 [facility] Comment on above: Performed By: #### L [id number] #### [facility] [address] [place] [address] PLATELETS (10*3/UL) IN BLOOD AUTOMATED COUNT 126 10*3/uL Low 150-400 [facility] Comment on above: Performed By: #### L [id number] #### [facility] [address] [place] [address] RBC (Bld) [#/Vol] 3.01 10*6/uL Low 3.80-5.00 [facility] Comment on above: Performed By: #### L [id number] #### [facility] [address] [place] [address] WBC (Bld) [#/Vol] 9.11 10*3/uL Normal 4.00-10.60 [facility] Comment on above: Performed By: #### L [id number] #### [facility] ([facility]) [address] [place] [address] MAGNESIUMon 01-12-2024 Magnesium [Mass/Vol] 1.3 mg/dL Low 1.9-2.7 [facility] Comment on above: Performed By: #### L [id number] #### [facility] [address] [place] [address] BASIC METABOLIC PANELon Anion gap [Moles/Vol] 12 mmol/L Normal 7-20 [facility] Comment on above: Performed By: #### L [id number] #### [facility] [address] [place] [address] Calcium [Mass/Vol] 6.9 mg/dL Low 8.6-10.3 [facility] Comment on above: Performed By: #### L [id number] #### [facility] ([facility] [address] [place] [address] Chloride [Moles/Vol] 104 mmol/L Normal 98-107 [facility] Comment on above: Performed By: #### L [id number] #### [facility] [address] [place] [address] CO2 [Moles/Vol] 24 mmol/L Normal 21-31 [facility] Comment on above: Performed By: #### L [id number] #### [facility]) [address] [place] [address] Creatinine [Mass/Vol] 1.01 mg/dL Normal 0.60-1.20 [facility] Comment on above: Performed By: #### L [id number] #### [facility] ([facility]) [address] [place] [address] GLOMERULAR FILTRATION RATE ML/MIN/1.73 SQ M.PREDICTED 61.4 mL/min/1.73m*2 Normal >60.0 [facility] Comment on above: Result Comment: The [facility]???s estimated glomerular filtration rate (eGFR) will no longer include consideration of race in its calculation. The National Kidney Foundation???s eGFR Task Force developed new recommendations for the estimation of the glomerular filtration rate in the [place] They recommend immediate implementation of the new equation refit without the race variable in all laboratories because the calculation does not include race. In addition to not including race in the calculation and reporting, it included diversity in its development, and has acceptable performance characteristics and potential consequences that do not disproportionately affect any one group of individuals. Performed By: #### L [id number] #### [facility] ([facility]) [address] [place] [address] Glucose [Mass/Vol] 129 mg/dL High 70-100 [facility] Comment on above: Performed By: #### L [id number] #### [facility]) [address] [place] [address] Potassium [Moles/Vol] 3.6 mmol/L Normal 3.5-5.1 [facility] Comment on above: Performed By: #### L [id number] #### [facility]) [address] [place] [address] Sodium [Moles/Vol] 136 mmol/L Normal 136-145 [facility] Comment on above: Performed By: #### L [id number] #### [facility]) [address] [place] [address] Urea nitrogen [Mass/Vol] 13 mg/dL Normal 7-25 [facility] Comment on above: Performed By: #### L [id number] #### [facility] [address] [place] [address] UREA NITROGEN/CREATININ E (MASS RATIO) IN SER/PLAS 12.9 Normal [facility] Comment on above: Performed By: #### L [id number] #### [facility] [address] [place] [address] CBCon 01-06-2024 Erythrocyte distribution width (RBC) [Ratio] 17.0 % High 11.5-15.0 [facility] Comment on above: Performed By: #### L [id number] #### [facility]) [address] [place] [address] ERYTHROCYTE MEAN CORPUSCULAR HEMOGLOBIN CONCENTRATION (G/DL) BY AUTOMATED 32.4 g/dL Normal 32.0-35.0 [facility] Comment on above: Performed By: #### L [id number] #### [facility]) [address] [place] [address] Hematocrit (Bld) [Volume fraction] 25.3 % Low 36.0-48.0 [facility] Comment on above: Performed By: #### L [id number] #### [facility] [address] [place] [address] Hemoglobin (Bld) [Mass/Vol] 8.2 g/dL Low 12.0-15.0 [facility] Comment on above: Performed By: #### L [id number] #### [facility] [address] [place] [address] MCH (RBC) [Entitic mass] 30.3 pg Normal 27.0-33.0 [facility] Comment on above: Performed By: #### L [id number] #### [facility] [address] [place] [address] MCV (RBC) [Entitic vol] 93.4 fL Normal 82.0-98.0 [facility] Comment on above: Performed By: #### L [id number] #### [facility]) [address] [place] [address] PLATELETS (10*3/UL) IN BLOOD AUTOMATED COUNT 159 10*3/uL Normal 150-400 [facility] Comment on above: Performed By: #### L [id number] #### [facility]) [address] [place] [address] RBC (Bld) [#/Vol] 2.71 10*6/uL Low 3.80-5.00 [facility] Comment on above: Performed By: #### L [id number] #### [facility]) [address] [place] [address] WBC (Bld) [#/Vol] 8.46 10*3/uL Normal 4.00-10.60 [facility] Comment on above: Performed By: #### L [id number] #### [facility]) [address] [place] [address] MAGNESIUMon 01-06-2024 Magnesium [Mass/Vol] 1.5 mg/dL Low 1.9-2.7 [facility] Comment on above: Performed By: #### L [id number] #### [facility] ([facility]) [address] [place] [address] BASIC METABOLIC PANELon 0 Anion gap [Moles/Vol] 12 mmol/L Normal 7-20 [facility] Comment on above: Performed By: #### L [id number] #### [facility] ([facility]) [address] [place] [address] Calcium [Mass/Vol] 6.9 mg/dL Low 8.6-10.3 [facility] Comment on above: Performed By: #### L [id number] #### [facility] [address] [place] [address] Chloride [Moles/Vol] 105 mmol/L Normal 98-107 [facility] Comment on above: Performed By: #### L [id number] #### [facility]) [address] [place] [address] CO2 [Moles/Vol] 21 mmol/L Normal 21-31 [facility] Comment on above: Performed By: #### L [id number] #### [facility]) [address] [place] [address] Creatinine [Mass/Vol] 0.99 mg/dL Normal 0.60-1.20 [facility] Comment on above: Performed By: #### L [id number] #### [facility]) [address] [place] [address] GLOMERULAR FILTRATION RATE ML/MIN/1.73 SQ M.PREDICTED 62.9 mL/min/1.73m*2 Normal >60.0 [facility] Comment on above: Result Comment: The [facility]???s estimated glomerular filtration rate (eGFR) will no longer include consideration of race in its calculation. The National Kidney Foundation???s eGFR Task Force developed new recommendations for the estimation of the glomerular filtration rate in the [place] They recommend immediate implementation of the new equation refit without the race variable in all laboratories because the calculation does not include race. In addition to not including race in the calculation and reporting, it included diversity in its development, and has acceptable performance characteristics and potential consequences that do not disproportionately affect any one group of individuals. Performed By: #### L [id number] #### [facility] ([facility]) [address] [place] [address] Glucose [Mass/Vol] 155 mg/dL High 70-100 [facility] Comment on above: Performed By: #### L [id number] #### [facility] ([facility]) [address] [place] [address] Potassium [Moles/Vol] 3.1 mmol/L Low 3.5-5.1 [facility] Comment on above: Performed By: #### L [id number] #### [facility] [address] [place] [address] Sodium [Moles/Vol] 135 mmol/L Low 136-145 [facility] Comment on above: Performed By: #### L [id number] #### [facility] [address] [place] [address] Urea nitrogen [Mass/Vol] 10 mg/dL Normal 7-25 [facility] Comment on above: Performed By: #### L [id number] #### [facility] [address] [place] [address] UREA NITROGEN/CREATININ E (MASS RATIO) IN SER/PLAS 10.1 Normal [facility] Comment on above: Performed By: #### L [id number] #### [facility] ([facility]) [address] [place] [address] CBCon 01-03-2024 Erythrocyte distribution width (RBC) [Ratio] 17.6 % High 11.5-15.0 [facility] Comment on above: Performed By: #### L [id number] #### [facility] [address] [place] [address] ERYTHROCYTE MEAN CORPUSCULAR HEMOGLOBIN CONCENTRATION (G/DL) BY AUTOMATED 32.3 g/dL Normal 32.0-35.0 [facility] Comment on above: Performed By: #### L [id number] #### [facility] [address] [place] [address] Hematocrit (Bld) [Volume fraction] 26.9 % Low 36.0-48.0 [facility] Comment on above: Performed By: #### L [id number] #### [facility] [address] [place] [address] Hemoglobin (Bld) [Mass/Vol] 8.7 g/dL Low 12.0-15.0 [facility] Comment on above: Performed By: #### L [id number] #### [facility] [address] [place] [address] MCH (RBC) [Entitic mass] 29.4 pg Normal 27.0-33.0 [facility] Comment on above: Performed By: #### L [id number] #### [facility] ([facility]) [address] [place] [address] MCV (RBC) [Entitic vol] 90.9 fL Normal 82.0-98.0 [facility] Comment on above: Performed By: #### L [id number] #### [facility] ([facility]) [address] [place] [address] PLATELETS (10*3/UL) IN BLOOD AUTOMATED COUNT 224 10*3/uL Normal 150-400 [facility] Comment on above: Performed By: #### L [id number] #### [facility] ([facility]) [address] [place] [address] RBC (Bld) [#/Vol] 2.96 10*6/uL Low 3.80-5.00 [facility] Comment on above: Performed By: #### L [id number] #### [facility] ([facility]) [address] [place] [address] WBC (Bld) [#/Vol] 12.74 10*3/uL High 4.00-10.60 [facility] Comment on above: Performed By: #### L [id number] #### [facility] ([facility]) [address] [place] [address] MAGNESIUMon 01-03-2024 Magnesium [Mass/Vol] 1.5 mg/dL Low 1.9-2.7 [facility] Comment on above: Performed By: #### L [id number] #### [facility] [address] [place] [address] BASIC METABOLIC PANELon Anion gap [Moles/Vol] 12 mmol/L Normal 7-20 [facility] Comment on above: Performed By: #### L [id number] #### [facility] ([facility]) [address] [place] [address] Calcium [Mass/Vol] 6.8 mg/dL Low 8.6-10.3 [facility] Comment on above: Performed By: #### L [id number] #### [facility] ([facility]) [address] [place] [address] Chloride [Moles/Vol] 107 mmol/L Normal 98-107 [facility] Comment on above: Performed By: #### L [id number] #### [facility] ([facility]) [address] [place] [address] CO2 [Moles/Vol] 20 mmol/L Low 21-31 [facility] Comment on above: Performed By: #### L [id number] #### [facility] ([facility]) [address] [place] [address] Creatinine [Mass/Vol] 1.05 mg/dL Normal 0.60-1.20 [facility] Comment on above: Performed By: #### L [id number] #### [facility] ([facility]) [address] [place] [address] GLOMERULAR FILTRATION RATE ML/MIN/1.73 SQ M.PREDICTED 58.6 mL/min/1.73m*2 Low >60.0 [facility] Comment on above: Result Comment: The [facility]???s estimated glomerular filtration rate (eGFR) will no longer include consideration of race in its calculation. The National Kidney Foundation???s eGFR Task Force developed new recommendations for the estimation of the glomerular filtration rate in the [place] They recommend immediate implementation of the new equation refit without the race variable in all laboratories because the calculation does not include race. In addition to not including race in the calculation and reporting, it included diversity in its development, and has acceptable performance characteristics and potential consequences that do not disproportionately affect any one group of individuals. Performed By: #### L [id number] #### [facility] ([facility]) [address] [place] [address] Glucose [Mass/Vol] 82 mg/dL Normal 70-100 [facility] Comment on above: Performed By: #### L [id number] #### [facility] ([facility]) [address] [place] [address] Potassium [Moles/Vol] 3.9 mmol/L Normal 3.5-5.1 [facility] Comment on above: Performed By: #### L [id number] #### [facility] ([facility]) [address] [place] [address] Sodium [Moles/Vol] 135 mmol/L Low 136-145 [facility] Comment on above: Performed By: #### L [id number] #### [facility] ([facility]) [address] [place] [address] Urea nitrogen [Mass/Vol] 11 mg/dL Normal 7-25 [facility] Comment on above: Performed By: #### L [id number] #### [facility] ([facility]) [address] [place] [address] UREA NITROGEN/CREATININ E (MASS RATIO) IN SER/PLAS 10.5 Normal [facility] Comment on above: Performed By: #### L [id number] #### [facility] ([facility]) [address] [place] [address] CBC WITH AUTO DIFFERENTIALon 12-31-2023 Basophils (Bld) [#/Vol] 0.08 10*3/uL Normal 0.00-0.20 [facility] Comment on above: Performed By: #### L [id number] #### [facility] ([facility]) [address] [place] [address] Basophils/100 WBC (Bld) 0.7 % Normal 0.0-1.0 [facility] Comment on above: Performed By: #### L [id number] #### [facility] ([facility]) [address] [place] [address] Eosinophils (Bld) [#/Vol] 0.17 10*3/uL Normal 0.00-0.50 [facility] Comment on above: Performed By: #### L [id number] #### [facility]) [address] [place] [address] Eosinophils/100 WBC (Bld) 1.4 % Normal 0.0-6.0 [facility] Comment on above: Performed By: #### L [id number] #### [facility] [address] [place] [address] Erythrocyte distribution width (RBC) [Ratio] 18.6 % High 11.5-15.0 [facility] Comment on above: Performed By: #### L [id number] #### [facility] ([facility]) [address] [place] [address] ERYTHROCYTE MEAN CORPUSCULAR HEMOGLOBIN CONCENTRATION (G/DL) BY AUTOMATED 32.6 g/dL Normal 32.0-35.0 [facility] Comment on above: Performed By: #### L [id number] #### [facility] ([facility]) [address] [place] [address] Hematocrit (Bld) [Volume fraction] 26.7 % Low 36.0-48.0 [facility] Comment on above: Performed By: #### L [id number] #### [facility] [address] [place] [address] Hemoglobin (Bld) [Mass/Vol] 8.7 g/dL Low 12.0-15.0 [facility] Comment on above: Performed By: #### L [id number] #### [facility] [address] [place] [address] Immature granulocytes (Bld) [#/Vol] 0.08 10*3/uL Normal 0.00-0.20 [facility] Comment on above: Performed By: #### L [id number] #### [facility] [address] [place] [address] Immature granulocytes/100 WBC (Bld) 0.7 % Normal 0.0-1.0 [facility] Comment on above: Performed By: #### L [id number] #### [facility] ([facility]) [address] [place] [address] Lymphocytes (Bld) [#/Vol] 1.92 10*3/uL Normal 1.20-4.00 [facility] Comment on above: Performed By: #### L [id number] #### [facility] [address] [place] [address] Lymphocytes/100 WBC (Bld) 15.8 % Low 20.0-45.0 [facility] Comment on above: Performed By: #### L [id number] #### [facility] [address] [place] [address] MCH (RBC) [Entitic mass] 30.6 pg Normal 27.0-33.0 [facility] Comment on above: Performed By: #### L [id number] #### [facility] [address] [place] [address] MCV (RBC) [Entitic vol] 94.0 fL Normal 82.0-98.0 [facility] Comment on above: Performed By: #### L [id number] #### [facility] [address] [place] [address] Monocytes (Bld) [#/Vol] 1.01 10*3/uL High 0.10-1.00 [facility] Comment on above: Performed By: #### L [id number] #### [facility] [address] [place] [address] Monocytes/100 WBC (Bld) 8.3 % Normal 5.0-12.0 [facility] Comment on above: Performed By: #### L [id number] #### [facility] [address] [place] [address] Neutrophils (Bld) [#/Vol] 8.93 10*3/uL High 1.60-7.60 [facility] Comment on above: Performed By: #### L [id number] #### [facility] [address] [place] [address] Neutrophils/100 WBC (Bld) 73.1 % High 40.0-72.0 [facility] Comment on above: Performed By: #### L [id number] #### [facility] [address] [place] [address] NRBC (PER 100 WBCS) BY AUTOMATED COUNT 0.0 % Normal 0 [facility] Comment on above: Performed By: #### L [id number] #### [facility] [address] [place] [address] PLATELETS (10*3/UL) IN BLOOD AUTOMATED COUNT 239 10*3/uL Normal 150-400 [facility] Comment on above: Performed By: #### L [id number] #### [facility] ([facility]) [address] [place] [address] RBC (Bld) [#/Vol] 2.84 10*6/uL Low 3.80-5.00 [facility] Comment on above: Performed By: #### L [id number] #### [facility] ([facility]) [address] [place] [address] WBC (Bld) [#/Vol] 12.19 10*3/uL High 4.00-10.60 [facility] Comment on above: Performed By: #### L [id number] #### [facility] [address] [place] [address] MAGNESIUMon 12-31-2023 Magnesium [Mass/Vol] 1.7 mg/dL Low 1.9-2.7 [facility] Comment on above: Performed By: #### L [id number] #### [facility] [address] [place] [address] PHOSPHORUSon 12-31-2023 Magnesium [Mass/Vol] 2.9 mg/dL Normal 2.5-5.0 [facility] Comment on above: Performed By: #### L [id number] #### [facility] [address] [place] [address] CBC WITH AUTO DIFFERENTIALon 12-29-2023 Basophils (Bld) [#/Vol] 0.07 10*3/uL Normal 0.00-0.20 [facility] Comment on above: Performed By: #### L [id number] #### [facility] [address] [place] [address] Basophils/100 WBC (Bld) 0.5 % Normal 0.0-1.0 [facility] Comment on above: Performed By: #### L [id number] #### [facility] ([facility]) [address] [place] [address] Eosinophils (Bld) [#/Vol] 0.14 10*3/uL Normal 0.00-0.50 [facility] Comment on above: Performed By: #### L [id number] #### [facility] ([facility]) [address] [place] [address] Eosinophils/100 WBC (Bld) 1.0 % Normal 0.0-6.0 [facility] Comment on above: Performed By: #### L [id number] #### [facility]) [address] [place] [address] Erythrocyte distribution width (RBC) [Ratio] 18.0 % High 11.5-15.0 [facility] Comment on above: Performed By: #### L [id number] #### [facility]) [address] [place] [address] ERYTHROCYTE MEAN CORPUSCULAR HEMOGLOBIN CONCENTRATION (G/DL) BY AUTOMATED 31.5 g/dL Low 32.0-35.0 [facility] Comment on above: Performed By: #### L [id number] #### [facility] [address] [place] [address] Hematocrit (Bld) [Volume fraction] 29.2 % Low 36.0-48.0 [facility] Comment on above: Performed By: #### L [id number] #### [facility] [address] [place] [address] Hemoglobin (Bld) [Mass/Vol] 9.2 g/dL Low 12.0-15.0 [facility] Comment on above: Performed By: #### L [id number] #### [facility]) [address] [place] [address] Immature granulocytes (Bld) [#/Vol] 0.13 10*3/uL Normal 0.00-0.20 [facility] Comment on above: Performed By: #### L [id number] #### [facility]) [address] [place] [address] Immature granulocytes/100 WBC (Bld) 0.9 % Normal 0.0-1.0 [facility] Comment on above: Performed By: #### L [id number] #### [facility]) [address] [place] [address] Lymphocytes (Bld) [#/Vol] 1.59 10*3/uL Normal 1.20-4.00 [facility] Comment on above: Performed By: #### L [id number] #### [facility]) [address] [place] [address] Lymphocytes/100 WBC (Bld) 11.3 % Low 20.0-45.0 [facility] Comment on above: Performed By: #### L [id number] #### [facility]) [address] [place] [address] MCH (RBC) [Entitic mass] 29.8 pg Normal 27.0-33.0 [facility] Comment on above: Performed By: #### L [id number] #### [facility] [address] [place] [address] MCV (RBC) [Entitic vol] 94.5 fL Normal 82.0-98.0 [facility] Comment on above: Performed By: #### L [id number] #### [facility] [address] [place] [address] Monocytes (Bld) [#/Vol] 1.05 10*3/uL High 0.10-1.00 [facility] Comment on above: Performed By: #### L [id number] #### [facility] ([facility]) [address] [place] [address] Monocytes/100 WBC (Bld) 7.5 % Normal 5.0-12.0 [facility] Comment on above: Performed By: #### L [id number] #### [facility] [address] [place] [address] Neutrophils (Bld) [#/Vol] 11.11 10*3/uL High 1.60-7.60 [facility] Comment on above: Performed By: #### L [id number] #### [facility] [address] [place] [address] Neutrophils/100 WBC (Bld) 78.8 % High 40.0-72.0 [facility] Comment on above: Performed By: #### L [id number] #### [facility]) [address] [place] [address] NRBC (PER 100 WBCS) BY AUTOMATED COUNT 0.0 % Normal 0 [facility] Comment on above: Performed By: #### L [id number] #### [facility] [address] [place] [address] PLATELETS (10*3/UL) IN BLOOD AUTOMATED COUNT 189 10*3/uL Normal 150-400 [facility] Comment on above: Performed By: #### L [id number] #### [facility] [address] [place] [address] RBC (Bld) [#/Vol] 3.09 10*6/uL Low 3.80-5.00 [facility] Comment on above: Performed By: #### L [id number] #### [facility] [address] [place] [address] WBC (Bld) [#/Vol] 14.09 10*3/uL High 4.00-10.60 [facility] Comment on above: Performed By: #### L [id number] #### [facility] ([facility]) [address] [place] [address] COMPREHENSIVE METABOLIC PANE [place]ver 12-29-2023 Albumin [Mass/Vol] 2.7 g/dL Low 3.5-5.7 [facility] Comment on above: Performed By: #### L [id number] #### [facility]) [address] [place] [address] ALP [Catalytic activity/Vol] 162 U/L High 34-104 [facility] Comment on above: Performed By: #### L [id number] #### [facility] ([facility]) [address] [place] [address] ALT [Catalytic activity/Vol] 11 U/L Normal 7-52 [facility] Comment on above: Performed By: #### L [id number] #### [facility]) [address] [place] [address] Anion gap [Moles/Vol] 11 mmol/L Normal 7-20 [facility] Comment on above: Performed By: #### L [id number] #### [facility] ([facility]) [address] [place] [address] AST [Catalytic activity/Vol] 21 U/L Normal 13-39 [facility] Comment on above: Performed By: #### L [id number] #### [facility] ([facility]) [address] [place] [address] Bilirubin [Mass/Vol] 0.7 mg/dL Normal 0.3-1.0 [facility] Comment on above: Performed By: #### L [id number] #### [facility] ([facility]) [address] [place] [address] Calcium [Mass/Vol] 7.2 mg/dL Low 8.6-10.3 [facility] Comment on above: Performed By: #### L [id number] #### [facility] [address] [place] [address] Chloride [Moles/Vol] 108 mmol/L High 98-107 [facility] Comment on above: Performed By: #### L [id number] #### [facility] ([facility]) [address] [place] [address] CO2 [Moles/Vol] 20 mmol/L Low 21-31 [facility] Comment on above: Performed By: #### L [id number] #### [facility] ([facility]) [address] [facility] [place] [address] Creatinine [Mass/Vol] 0.92 mg/dL Normal 0.60-1.20 [facility] Comment on above: Performed By: #### L [id number] #### [facility] ([facility]) [address] [place] [address] GLOMERULAR FILTRATION RATE ML/MIN/1.73 SQ M.PREDICTED 68.7 mL/min/1.73m*2 Normal >60.0 [facility] Comment on above: Result Comment: The [facility]???s estimated glomerular filtration rate (eGFR) will no longer include consideration of race in its calculation. The National Kidney Foundation???s eGFR Task Force developed new recommendations for the estimation of the glomerular filtration rate in the [place] They recommend immediate implementation of the new equation refit without the race variable in all laboratories because the calculation does not include race. In addition to not including race in the calculation and reporting, it included diversity in its development, and has acceptable performance characteristics and potential consequences that do not disproportionately affect any one group of individuals. Performed By: #### L [id number] #### [facility] ([facility]) [address] [place] [address] Glucose [Mass/Vol] 83 mg/dL Normal 70-100 [facility] Comment on above: Performed By: #### L [id number] #### [facility] ([facility]) [address] [place] [address] Potassium [Moles/Vol] 4.5 mmol/L Normal 3.5-5.1 [facility] Comment on above: Performed By: #### L [id number] #### [facility] ([facility]) [address] [place] [address] Protein [Mass/Vol] 5.8 g/dL Low 6.0-8.3 [facility] Comment on above: Performed By: #### L [id number] #### [facility] ([facility]) [address] [place] [address] Sodium [Moles/Vol] 134 mmol/L Low 136-145 [facility] Comment on above: Performed By: #### L [id number] #### [facility] ([facility]) [address] [place] [address] Urea nitrogen [Mass/Vol] 11 mg/dL Normal 7-25 [facility] Comment on above: Performed By: #### L [id number] #### [facility] ([facility]) [address] [place] [address] UREA NITROGEN/CREATININ E (MASS RATIO) IN SER/PLAS 12.0 Normal [facility] Comment on above: Performed By: #### L [id number] #### [facility] ([facility]) [address] [place] [address] MAGNESIUMon 12-29-2023 Magnesium [Mass/Vol] 1.4 mg/dL Low 1.9-2.7 [facility] Comment on above: Performed By: #### L [id number] #### [facility] ([facility]) [address] [place] [address] PHOSPHORUSon 12-29-2023 Magnesium [Mass/Vol] 2.2 mg/dL Low 2.5-5.0 [facility] Comment on above: Performed By: #### L [id number] #### [facility] ([facility]) [address] [place] [address] CBC AND AUTO DIFFon 12-28-19 ABSOLUTE BASOPHIL 0.1 X10E9/L Normal 0.0-0.2 [facility] Comment on above: Performed By: #### C BCA, CMP ####[facility] ([id number])[address] [address] ABSOLUTE NEUTROPHIL 9.5 X10E9/L High 1.5-6.6 [facility] Comment on above: Performed By: #### C BCA, CMP ####[facility] ([id number])[address] [address] RBC COUNT 2.70 X10E12/L Low 3.80-5.20 [facility] Comment on above: Performed By: #### C BCA, CMP ####[facility] ([id number])[address], [address] [address] WBC (Bld) [#/Vol] 12.1 10*3/uL High 4.0-11.0 [facility] Comment on above: Performed By: #### C BCA, CMP ####[facility] ([id number])[address], [address] [address] Basophils/100 WBC (Bld) 0.6 % Normal [facility] Comment on above: Performed By: #### C BCA, CMP ####[facility] ([id number])[address] [address] Eosinophils (Bld) [#/Vol] 0.2 10*3/uL Normal 0.0-0.4 [facility] Comment on above: Performed By: #### C BCA, CMP ####[facility] ([id number])[address], [address] [address] Eosinophils/100 WBC (Bld) 1.4 % Normal [facility] Comment on above: Performed By: #### C BCA, CMP ####[facility] ([id number])[address] [address] Erythrocyte distribution width (RBC) [Ratio] 17.8 % High 11.5-15.0 [facility] Comment on above: Performed By: #### C BCA, CMP ####[facility] ([id number])[address] [address] Hematocrit (Bld) [Volume fraction] 24.4 % Low 35-47 [facility] Comment on above: Performed By: #### C BCA, CMP ####[facility] ([id number])[address] [address] Hemoglobin (Bld) [Mass/Vol] 8.1 g/dL Low 11.7-15.5 [facility] Comment on above: Performed By: #### C BCA, CMP ####[facility] ([id number])[address] [address] Lymphocytes (Bld) [#/Vol] 1.5 10*3/uL Normal 1.0-3.5 [facility] Comment on above: Performed By: #### C BCA, CMP ####[facility] ([id number])[address] [address] Lymphocytes/100 WBC (Bld) 12.2 % Normal [facility] Comment on above: Performed By: #### C BCA, CMP ####[facility] ([id number])[address] [address] MCH (RBC) [Entitic mass] 30.2 pg Normal 27-34 [facility] Comment on above: Performed By: #### C BCA, CMP ####[facility] ([id number])[address] [address] MCHC (RBC) [Mass/Vol] 33.4 g/dL Normal 32-36 [facility] Comment on above: Performed By: #### C BCA, CMP ####[facility] ([id number])[address] [address] MCV (RBC) [Entitic vol] 90 fL Normal 80-100 [facility] Comment on above: Performed By: #### C BCA, CMP ####[facility] ([id number])[address] [address] Monocytes (Bld) [#/Vol] 0.9 10*3/uL Normal 0-0.9 [facility] Comment on above: Performed By: #### C MONSE, CMP ####[facility] ([id number])[address] [address] Monocytes/100 WBC (Bld) 7.3 % Normal [facility] Comment on above: Performed By: #### Dru SHEA, CMP ####[facility] ([id number])[address] [address] Neutrophils/100 WBC (Bld) 78.5 % Normal [facility] Comment on above: Performed By: #### C MONSE, CMP ####[facility] ([id number])[address] [address] Platelet mean volume (Bld) [Entitic vol] 8.8 fL Normal 7-12 [facility] Comment on above: Performed By: #### C BCA, CMP ####[facility] ([id number])[address] [address] Platelets (Bld) [#/Vol] 160 10*3/uL Normal 150-450 [facility] Comment on above: Performed By: #### C BCA, CMP ####[facility] ([id number])[address] [address] CBC auto differentialon 03-3 0-2023 Basophils (Bld) [#/Vol] 0.1 10*3/uL [facility] Interpretation and review of laboratory results Abnormal [facility] Neutrophils (Bld) [#/Vol] 9.5 10*3/uL High [facility] RBC (Bld) [#/Vol] 2.70 10*6/uL Low [facility] WBC corrected for nucl RBC Auto (Bld) [#/Vol] 12.1 High [facility] COMPREHENSIVE METABOLIC PANE Elver 12-28-2023 ALT [Catalytic activity/Vol] 13 U/L Normal 0-31 [facility] Comment on above: Performed By: #### C BCA, CMP ####[facility] ([id number])[address], [address], [place] [address] GFR/1.73 sq M.predicted among non-blacks MDRD (S/P/Bld) [Vol rate/Area] 63 mL/min/{1.73_m2} Normal >59 [facility] Comment on above: Result Comment: Repo rted eGFR is based on theCKD-EPI 2020 equation that doesnot use a race coefficient. Performed By: #### C BCA, CMP ####[facility] ([id number])[address], [address], [place] [address] Albumin [Mass/Vol] 2.3 g/dL Low 3.2-5.3 [facility] Comment on above: Performed By: #### C BCA, CMP ####[facility] ([id number])[address], [address], [place] [address] ALP [Catalytic activity/Vol] 152 U/L High 39-130 [facility] Comment on above: Performed By: #### C BCA, CMP ####[facility] ([id number])[address], [address] [place] [address] Anion gap [Moles/Vol] 6 mmol/L Normal 5-15 [facility] Comment on above: Performed By: #### C BCA, CMP ####[facility] ([id number])[address], [address] [place] [address] AST [Catalytic activity/Vol] 18 U/L Normal 0-41 [facility] Comment on above: Performed By: #### C BCA, CMP ####[facility] ([id number])[address], [place] [address] Calcium [Mass/Vol] 7.0 mg/dL Low 8.5-10.5 [facility] Comment on above: Performed By: #### C BCA, CMP ####[facility] ([id number])[address], [place] [address] CO2 [Moles/Vol] 22 mmol/L Normal 22-32 [facility] Comment on above: Performed By: #### C BCA, CMP ####[facility] ([id number])[address], [place] [address] Creatinine [Mass/Vol] 0.99 mg/dL Normal 0.40-1.00 [facility] Comment on above: Result Comment: METH OD TRACEABLE TO IDMS STANDARD Performed By: #### C BCA, CMP ####[facility] ([id number])[address], [place] [address] Glucose [Mass/Vol] 102 mg/dL High 65-99 [facility] Comment on above: Performed By: #### C BCA, CMP ####[facility] ([id number])[address], [place] [address] Potassium [Moles/Vol] 4.9 mmol/L Normal 3.5-5.0 [facility] Comment on above: Performed By: #### C BCA, CMP ####[facility] ([id number])[address], [address], [place] [address] Protein [Mass/Vol] 5.4 g/dL Low 6.0-8.0 [facility] Comment on above: Performed By: #### C BCA, CMP ####[facility] ([id number])[address], [address], [place] [address] Sodium [Moles/Vol] 138 mmol/L Normal 134-146 [facility] Comment on above: Performed By: #### C BCA, CMP ####[facility] ([id number])[address], [address], [place] [address] Urea nitrogen [Mass/Vol] 12 mg/dL Normal 5-27 [facility] Comment on above: Performed By: #### C BCA, CMP ####[facility] ([id number])[address], [address], [place] [address] Albumin [Mass/Vol] 3.7 g/dL Normal 3.2-5.3 [facility] Comment on above: Performed By: #### C MP ####[facility] ([id number])[address], [address], [place] [address] ALP [Catalytic activity/Vol] 61 U/L Normal 39-130 [facility] Comment on above: Performed By: #### C MP ####[facility] ([id number])[address], [address], [place] [address] ALT [Catalytic activity/Vol] 12 U/L Normal 0-31 [facility] Comment on above: Performed By: #### C MP ####[facility] ([id number])[address], [address], [place] [address] Anion gap [Moles/Vol] 9 mmol/L Normal 5-15 [facility] Comment on above: Performed By: #### C MP ####[facility] ([id number])[address], [address], [place] [address] AST [Catalytic activity/Vol] 14 U/L Normal 0-41 [facility] Comment on above: Performed By: #### C MP ####[facility] ([id number])[address], [address], [place] [address] Bilirubin [Mass/Vol] 0.5 mg/dL Normal 0.3-1.2 [facility] Comment on above: Performed By: #### C MP ####[facility] ([id number])[address] [address] Calcium [Mass/Vol] 8.4 mg/dL Low 8.5-10.5 [facility] Comment on above: Performed By: #### C MP ####[facility] ([id number])[address] [address], [place] [address] Chloride [Moles/Vol] 110 mmol/L High 98-109 [facility] Comment on above: Performed By: #### C MP ####[facility] ([id number])[address] [address] [place] [address] CO2 [Moles/Vol] 21 mmol/L Low 22-32 [facility] Comment on above: Performed By: #### C MP ####[facility] ([id number])[address] [address], [place] [address] Creatinine [Mass/Vol] 0.91 mg/dL Normal 0.40-1.00 [facility] Comment on above: Result Comment: METH OD TRACEABLE TO IDMS STANDARD Performed By: #### C MP ####[facility] ([id number])[address] [address] GFR/1.73 sq M.predicted among non-blacks MDRD (S/P/Bld) [Vol rate/Area] 70 mL/min/{1.73_m2} Normal >59 [facility] Comment on above: Result Comment: Repo rted eGFR is based on theCKD-EPI 2020 equation that doesnot use a race coefficient. Performed By: #### C MP ####[facility] ([id number])[address] [address] [address] Glucose [Mass/Vol] 86 mg/dL Normal 65-99 [facility] Comment on above: Performed By: #### C MP ####[facility] ([id number])[address], [place] [address] Potassium [Moles/Vol] 3.5 mmol/L Normal 3.5-5.0 [facility] Comment on above: Performed By: #### C MP ####[facility] ([id number])[address] [address] Protein [Mass/Vol] 5.5 g/dL Low 6.0-8.0 [facility] Comment on above: Performed By: #### C MP ####[facility] ([id number])[address], [place] [address] Sodium [Moles/Vol] 140 mmol/L Normal 134-146 [facility] Comment on above: Performed By: #### C MP ####[facility] ([id number])[address] [place] [address] Urea nitrogen [Mass/Vol] 9 mg/dL Normal 5-27 [facility] Comment on above: Performed By: #### C MP ####[facility] ([id number])[address], [place] [address] Bilirubin [Mass/Vol] 0.5 mg/dL Normal 0.3-1.2 [facility] Comment on above: Performed By: #### C BCA, CMP ####[facility] ([id number])[address], [place] [address] Chloride [Moles/Vol] 110 mmol/L High 98-109 [facility] Comment on above: Performed By: #### C BCA, CMP ####[facility] ([id number])[address], [place] [address] Comprehensive metabolic pane elver 12-28-2023 ALT No additional P-5'-P [Catalytic activity/Vol] 13 U/L 0 - 31 U/L [facility] Bilirubin [Mass/Vol] 0.5 mg/dL 0.3 - 1.2 mg/dL [facility] Chloride [Moles/Vol] 110 mmol/L High 98 - 109 mmol/L [facility] eGFR (CKD-EPI)non-race dependent 63 - PINF [facility] Interpretation and review of laboratory results Abnormal [facility] Albumin [Mass/Vol] 3.7 g/dL 3.2 - 5.3 g/dL [facility] ALP [Catalytic activity/Vol] 61 U/L 39 - 130 U/L [facility] ALT No additional P-5'-P [Catalytic activity/Vol] 12 U/L 0 - 31 U/L [facility] Anion gap [Moles/Vol] 9 mmol/L 5 - 15 mmol/L [facility] AST [Catalytic activity/Vol] 14 U/L 0 - 41 U/L [facility] Calcium [Mass/Vol] 8.4 mg/dL Low 8.5 - 10. 5 mg/dL [facility] CO2 [Moles/Vol] 21 mmol/L Low 22 - 32 mmol/L [facility] Creatinine [Mass/Vol] 0.91 mg/dL 0.40 - 1.00 mg/dL [facility] eGFR (CKD-EPI)non-race dependent 70 - PINF [facility] Glucose [Mass/Vol] 86 mg/dL 65 - 99 mg/dL [facility] Interpretation and review of laboratory results Abnormal [facility] Potassium [Moles/Vol] 3.5 mmol/L 3.5 - 5.0 mmol/L [facility] Protein [Mass/Vol] 5.5 g/dL Low 6.0 - 8.0 g/dL [facility] Sodium [Moles/Vol] 140 mmol/L 134 - 146 mmol/L [facility] Urea nitrogen [Mass/Vol] 9 mg/dL 5 - 27 mg/dL [facility] MR PELVIS W WO CONTon 2023 MR PELVIS W WO CONT Normal [facility] MR Pelvis WO and W contrast Kellee 12-28-2023 SECTRAPACS [facility] Bacteria identified Aer cx N om (Bld)on 12-27-2023 Service comment (Unsp spec) [Interp] NO GROWTH 5 DAYS [facility] CBC AND AUTO DIFFon 12-27-19 ABSOLUTE BASOPHIL 0.1 X10E9/L Normal 0.0-0.2 [facility] Comment on above: Performed By: #### C BCA, CMP ####[facility] ([id number])[address], [place] [address] ABSOLUTE NEUTROPHIL 11.0 X10E9/L High 1.5-6.6 [facility] Comment on above: Performed By: #### C BCA, CMP ####[facility] ([id number])[address], [place] [address] Basophils/100 WBC (Bld) 0.7 % Normal [facility] Comment on above: Performed By: #### C BCA, CMP ####[facility] ([id number])[address], [place] [address] Eosinophils (Bld) [#/Vol] 0.1 10*3/uL Normal 0.0-0.4 [facility] Comment on above: Performed By: #### C BCA, CMP ####[facility] ([id number])[address], [place] [address] Eosinophils/100 WBC (Bld) 1.0 % Normal [facility] Comment on above: Performed By: #### C BCA, CMP ####[facility] ([id number])[address] [address] Erythrocyte distribution width (RBC) [Ratio] 18.1 % High 11.5-15.0 [facility] Comment on above: Performed By: #### C BCA, CMP ####[facility] ([id number])[address], [place] [address] Hematocrit (Bld) [Volume fraction] 25.3 % Low 35-47 [facility] Comment on above: Performed By: #### C BCA, CMP ####[facility] ([id number])[address], [place] [address] Hemoglobin (Bld) [Mass/Vol] 8.3 g/dL Low 11.7-15.5 [facility] Comment on above: Performed By: #### C MONSE, CMP ####[facility] ([id number])[address] [address] Lymphocytes (Bld) [#/Vol] 1.3 10*3/uL Normal 1.0-3.5 [facility] Comment on above: Performed By: #### C MONSE, CMP ####[facility] ([id number])[address] [address] Lymphocytes/100 WBC (Bld) 9.7 % Normal [facility] Comment on above: Performed By: #### C MONSE, CMP ####[facility] ([id number])[address], [place] [address] MCH (RBC) [Entitic mass] 29.9 pg Normal 27-34 [facility] Comment on above: Performed By: #### C BCA, CMP ####[facility] ([id number])[address], [place] [address] MCHC (RBC) [Mass/Vol] 33.0 g/dL Normal 32-36 [facility] Comment on above: Performed By: #### C BCA, CMP ####[facility] ([id number])[address], [place] [address] MCV (RBC) [Entitic vol] 91 fL Normal 80-100 [facility] Comment on above: Performed By: #### C BCA, CMP ####[facility] ([id number])[address], [place] [address] Monocytes (Bld) [#/Vol] 0.9 10*3/uL Normal 0-0.9 [facility] Comment on above: Performed By: #### C BCA, CMP ####[facility] ([id number])[address], [place] [address] Monocytes/100 WBC (Bld) 6.7 % Normal [facility] Comment on above: Performed By: #### C BCA, CMP ####[facility] ([id number])[address], [place] [address] Neutrophils/100 WBC (Bld) 81.9 % Normal [facility] Comment on above: Performed By: #### C BCA, CMP ####[facility] ([id number])[address], [place] [address] Platelet mean volume (Bld) [Entitic vol] 8.7 fL Normal 7-12 [facility] Comment on above: Performed By: #### C BCA, CMP ####[facility] ([id number])[address], [place] [address] Platelets (Bld) [#/Vol] 155 10*3/uL Normal 150-450 [facility] Comment on above: Performed By: #### C BCA, CMP ####[facility] ([id number])[address], [place] [address] RBC COUNT 2.79 X10E12/L Low 3.80-5.20 [facility] Comment on above: Performed By: #### C BCA, CMP ####[facility] ([id number])[address], [place] [address] WBC (Bld) [#/Vol] 13.5 10*3/uL High 4.0-11.0 [facility] Comment on above: Performed By: #### C MONSE, CMP ####[facility] ([id number])[address] [facility], [address], [place] [address] CBC auto differentialon 11-29 Basophils (Bld) [#/Vol] 0.1 10*3/uL [facility] Basophils/100 WBC (Bld) 0.7 % [facility] Eosinophils (Bld) [#/Vol] 0.1 10*3/uL [facility] Eosinophils/100 WBC (Bld) 1.0 % [facility] Erythrocyte distribution width (RBC) [Ratio] 18.1 % High 11.5 - 15.0 % [facility] Hematocrit (Bld) [Volume fraction] 25.3 % Low 35 - 47 % [facility] Hemoglobin (Bld) [Mass/Vol] 8.3 g/dL Low 11.7 - 15.5 g/dL [facility] Interpretation and review of laboratory results Abnormal [facility] Lymphocytes (Bld) [#/Vol] 1.3 10*3/uL [facility] Lymphocytes/100 WBC (Bld) 9.7 % [facility] MCH (RBC) [Entitic mass] 29.9 pg 27 - 34 pg [facility] MCHC (RBC) [Mass/Vol] 33.0 g/dL 32 - 36 g/dL [facility] MCV (RBC) [Entitic vol] 91 fL 80 - 100 fL [facility] Monocytes (Bld) [#/Vol] 0.9 10*3/uL [facility] Monocytes/100 WBC (Bld) 6.7 % [facility] Neutrophils (Bld) [#/Vol] 11.0 10*3/uL High [facility] Neutrophils/100 WBC (Bld) 81.9 % [facility] Platelet mean volume (Bld) [Entitic vol] 8.7 fL 7 - 12 fL [facility] Platelets (Bld) [#/Vol] 155 10*3/uL [facility] RBC (Bld) [#/Vol] 2.79 10*6/uL Low [facility] WBC corrected for nucl RBC Auto (Bld) [#/Vol] 13.5 High [facility] COMPREHENSIVE METABOLIC PANE [place] 12-27-2023 Albumin [Mass/Vol] 2.4 g/dL Low 3.2-5.3 [facility] Comment on above: Performed By: #### C BCA, CMP ####[facility] ([id number])[address], [place] [address] ALP [Catalytic activity/Vol] 164 U/L High 39-130 [facility] Comment on above: Performed By: #### C BCA, CMP ####[facility] ([id number])[address], [place] [address] ALT [Catalytic activity/Vol] 15 U/L Normal 0-31 [facility] Comment on above: Performed By: #### C BCA, CMP ####[facility] ([id number])[address], [place] [address] Anion gap [Moles/Vol] 6 mmol/L Normal 5-15 [facility] Comment on above: Performed By: #### C BCA, CMP ####[facility] [facility] ([id number])[address], [address], [place] [address] AST [Catalytic activity/Vol] 19 U/L Normal 0-41 [facility] Comment on above: Performed By: #### C BCA, CMP ####[facility] ([id number])[address], [address], [place] [address] Bilirubin [Mass/Vol] 0.5 mg/dL Normal 0.3-1.2 [facility] Comment on above: Performed By: #### C BCA, CMP ####[facility] ([id number])[address], [address] [place] [address] Calcium [Mass/Vol] 7.0 mg/dL Low 8.5-10.5 [facility] Comment on above: Performed By: #### C BCA, CMP ####[facility] ([id number])[address] [address], [place] [address] Chloride [Moles/Vol] 110 mmol/L High 98-109 [facility] Comment on above: Performed By: #### C BCA, CMP ####[facility] ([id number])[address] [address] [place] [address] CO2 [Moles/Vol] 21 mmol/L Low 22-32 [facility] Comment on above: Performed By: #### C BCA, CMP ####[facility] ([id number])[address] [address] Creatinine [Mass/Vol] 1.00 mg/dL Normal 0.40-1.00 [facility] Comment on above: Result Comment: METH OD TRACEABLE TO IDMS STANDARD Performed By: #### C BCA, CMP ####[facility] ([id number])[address] [address] GFR/1.73 sq M.predicted among non-blacks MDRD (S/P/Bld) [Vol rate/Area] 62 mL/min/{1.73_m2} Normal >59 [facility] Comment on above: Result Comment: Repo rted eGFR is based on theCKD-EPI 2020 equation that doesnot use a race coefficient. Performed By: #### C BCA, CMP ####[facility] ([id number])[address] [address] [place] [address] Glucose [Mass/Vol] 107 mg/dL High 65-99 [facility] Comment on above: Performed By: #### C BCA, CMP ####[facility] ([id number])[address] [place] [address] Potassium [Moles/Vol] 4.6 mmol/L Normal 3.5-5.0 [facility] Comment on above: Performed By: #### C BCA, CMP ####[facility] ([id number])[address], [address] [place] [address] Protein [Mass/Vol] 5.5 g/dL Low 6.0-8.0 [facility] Comment on above: Performed By: #### C BCA, CMP ####[facility] ([id number])[address] [address] Sodium [Moles/Vol] 137 mmol/L Normal 134-146 [facility] Comment on above: Performed By: #### C BCA, CMP ####[facility] ([id number])[address] [address] Urea nitrogen [Mass/Vol] 15 mg/dL Normal 5-27 [facility] Comment on above: Performed By: #### C BCA, CMP ####[facility] ([id number])[address] [address] Comprehensive metabolic pane elver 12-27-2023 Albumin [Mass/Vol] 2.4 g/dL Low 3.2 - 5.3 g/dL [facility] ALP [Catalytic activity/Vol] 164 U/L High 39 - 130 U/L [facility] ALT No additional P-5'-P [Catalytic activity/Vol] 15 U/L 0 - 31 U/L [facility] Anion gap [Moles/Vol] 6 mmol/L 5 - 15 mmol/L [facility] AST [Catalytic activity/Vol] 19 U/L 0 - 41 U/L [facility] Bilirubin [Mass/Vol] 0.5 mg/dL 0.3 - 1.2 mg/dL [facility] Calcium [Mass/Vol] 7.0 mg/dL Low 8.5 - 10. 5 mg/dL [facility] Chloride [Moles/Vol] 110 mmol/L High 98 - 109 mmol/L [facility] CO2 [Moles/Vol] 21 mmol/L Low 22 - 32 mmol/L [facility] Creatinine [Mass/Vol] 1.00 mg/dL 0.40 - 1.00 mg/dL [facility] eGFR (CKD-EPI)non-race dependent 62 - PINF [facility] Glucose [Mass/Vol] 107 mg/dL High 65 - 99 mg/dL [facility] Interpretation and review of laboratory results Abnormal [facility] Potassium [Moles/Vol] 4.6 mmol/L 3.5 - 5.0 mmol/L [facility] Protein [Mass/Vol] 5.5 g/dL Low 6.0 - 8.0 g/dL [facility] Sodium [Moles/Vol] 137 mmol/L 134 - 146 mmol/L [facility] Urea nitrogen [Mass/Vol] 15 mg/dL 5 - 27 mg/dL [facility] Glucose Glucometer (BldC) [M ass/Vol]on 12-27-2023 Glucose [Mass/Vol] 93 mg/dL Normal 65-99 [facility] Glucose [Mass/Vol] 93 mg/dL 65 - 99 mg/dL [facility] Glucose [Mass/Vol] 119 mg/dL High 65-99 [facility] Glucose [Mass/Vol] 119 mg/dL High 65 - 99 mg/dL [facility] Interpretation and review of laboratory results Abnormal [facility] Glucose [Mass/Vol] 126 mg/dL High 65-99 [facility] Glucose [Mass/Vol] 126 mg/dL High 65 - 99 mg/dL [facility] Interpretation and review of laboratory results Abnormal [facility] HGB AND HCTon 12-27-2023 Hematocrit (Bld) [Volume fraction] 23.8 % Low 35-47 [facility] Comment on above: Performed By: #### H H ####[facility] ([id number])[address] [place] [address], [address], [place] [address] Hemoglobin (Bld) [Mass/Vol] 8.0 g/dL Low 11.7-15.5 [facility] Comment on above: Performed By: #### H H ####[facility] ([id number])[address], [address] [place] [address] Hematocrit (Bld) [Volume fraction] 23.8 % Low 35-47 [facility] Comment on above: Performed By: #### H H ####[facility] ([id number])[address], [address] [place] [address] Hemoglobin (Bld) [Mass/Vol] 7.8 g/dL Low 11.7-15.5 [facility] Comment on above: Performed By: #### H H ####[facility] ([id number])[address] [address] [place] [address] Hematocrit (Bld) [Volume fraction] 23.6 % Low 35-47 [facility] Comment on above: Performed By: #### H H ####[facility] ([id number])[address] [address] Hemoglobin (Bld) [Mass/Vol] 7.6 g/dL Low 11.7-15.5 [facility] Comment on above: Performed By: #### H H ####[facility] ([id number])[address] [address] Hemoglobin and hematocrit, b loodon 12-27-2023 Hematocrit (Bld) [Volume fraction] 23.8 % Low 35 - 47 % [facility] Hemoglobin (Bld) [Mass/Vol] 8.0 g/dL Low 11.7 - 15.5 g/dL [facility] Interpretation and review of laboratory results Abnormal [facility] Hematocrit (Bld) [Volume fraction] 23.8 % Low 35 - 47 % [facility] Hemoglobin (Bld) [Mass/Vol] 7.8 g/dL Low 11.7 - 15.5 g/dL [facility] Interpretation and review of laboratory results Abnormal [facility] Hematocrit (Bld) [Volume fraction] 23.6 % Low 35 - 47 % [facility] Hemoglobin (Bld) [Mass/Vol] 7.6 g/dL Low 11.7 - 15.5 g/dL [facility] Interpretation and review of laboratory results Abnormal [facility] MR Pelvis WO and W contrast Kellee 12-27-2023 Radiology Study observation (narrative) [facility] Bacteria identified Cx Nom ( U)on 12-26-2023 Interpretation and review of laboratory results Abnormal [facility] Service comment (Unsp spec) [Interp] >100,000 ORGANISMS/mL ENTEROCOCCUS SPECIES Ampicillin or Amoxicillin is the drug of choice for uncomplicated cystitis caused by enterococci. Cephalosporins are inappropriate. Abnormal [facility] Service comment (Unsp spec) [Interp] 50,000 to 100,000 ORGANISMS/mL NORMAL URO GENITAL LALY [facility] Service comment (Unsp spec) [Interp] DR MEDINA REQUESTED SUSCEPTIBILITY 12/23 [facility] CBC AND AUTO DIFFon 12-26-19 ABSOLUTE BASOPHIL 0.1 X10E9/L Normal 0.0-0.2 [facility] Comment on above: Performed By: #### C BCA, CMP ####[facility] ([id number])[address], [place] [address] ABSOLUTE NEUTROPHIL 10.4 X10E9/L High 1.5-6.6 [facility] Comment on above: Performed By: #### C BCA, CMP ####[facility] ([id number])[address], [address], [place] [address] Basophils/100 WBC (Bld) 0.6 % Normal [facility] Comment on above: Performed By: #### C BCA, CMP ####[facility] ([id number])[address], [address], [place] [address] Eosinophils (Bld) [#/Vol] 0.2 10*3/uL Normal 0.0-0.4 [facility] Comment on above: Performed By: #### C MONSE, CMP ####[facility] ([id number])[address], [address] [address] Eosinophils/100 WBC (Bld) 1.4 % Normal [facility] Comment on above: Performed By: #### C MONSE, CMP ####[facility] ([id number])[address] [address], [place] [address] Erythrocyte distribution width (RBC) [Ratio] 17.6 % High 11.5-15.0 [facility] Comment on above: Performed By: #### C MONSE, CMP ####[facility] ([id number])[address] [address], [place] [address] Hematocrit (Bld) [Volume fraction] 27.4 % Low 35-47 [facility] Comment on above: Performed By: #### C MONSE, CMP ####[facility] ([id number])[address] [address] [address] Hemoglobin (Bld) [Mass/Vol] 8.8 g/dL Low 11.7-15.5 [facility] Comment on above: Performed By: #### C MONSE, CMP ####[facility] ([id number])[address] [address] [address] Lymphocytes (Bld) [#/Vol] 1.5 10*3/uL Normal 1.0-3.5 [facility] Comment on above: Performed By: #### C MONSE, CMP ####[facility] ([id number])[address] [address] [address] Lymphocytes/100 WBC (Bld) 11.6 % Normal [facility] Comment on above: Performed By: #### C BCA, CMP ####[facility] ([id number])[address] [address] MCH (RBC) [Entitic mass] 29.2 pg Normal 27-34 [facility] Comment on above: Performed By: #### C BCA, CMP ####[facility] ([id number])[address], [address] [place] [address] MCHC (RBC) [Mass/Vol] 32.2 g/dL Normal 32-36 [facility] Comment on above: Performed By: #### C BCA, CMP ####[facility] ([id number])[address] [address] MCV (RBC) [Entitic vol] 91 fL Normal 80-100 [facility] Comment on above: Performed By: #### C BCA, CMP ####[facility] ([id number])[address] [address] [address] Monocytes (Bld) [#/Vol] 1.1 10*3/uL High 0-0.9 [facility] Comment on above: Performed By: #### C MONSE, CMP ####[facility] ([id number])[address], [address], [place] [address] Monocytes/100 WBC (Bld) 7.9 % Normal [facility] Comment on above: Performed By: #### C BCA, CMP ####[facility] ([id number])[address] [address] [address] Neutrophils/100 WBC (Bld) 78.5 % Normal [facility] Comment on above: Performed By: #### C BCA, CMP ####[facility] ([id number])[address] [address], [place] [address] Platelet mean volume (Bld) [Entitic vol] 8.7 fL Normal 7-12 [facility] Comment on above: Performed By: #### C BCA, CMP ####[facility] ([id number])[address] [address] [place] [address] Platelets (Bld) [#/Vol] 170 10*3/uL Normal 150-450 [facility] Comment on above: Performed By: #### Dru SHEA, CMP ####[facility] ([id number])[address], [address] [address] RBC COUNT 3.03 X10E12/L Low 3.80-5.20 [facility] Comment on above: Performed By: #### Dru SHEA, CMP ####[facility] ([id number])[address] [address] WBC (Bld) [#/Vol] 13.3 10*3/uL High 4.0-11.0 [facility] Comment on above: Performed By: #### Dru SHEA, CMP ####[facility] ([id number])[address] [address] CBC auto differentialon 11-29 Basophils (Bld) [#/Vol] 0.1 10*3/uL [facility] Basophils/100 WBC (Bld) 0.6 % [facility] Eosinophils (Bld) [#/Vol] 0.2 10*3/uL [facility] Eosinophils/100 WBC (Bld) 1.4 % [facility] Erythrocyte distribution width (RBC) [Ratio] 17.6 % High 11.5 - 15.0 % [facility] Hematocrit (Bld) [Volume fraction] 27.4 % Low 35 - 47 % [facility] Hemoglobin (Bld) [Mass/Vol] 8.8 g/dL Low 11.7 - 15.5 g/dL [facility] Interpretation and review of laboratory results Abnormal [facility] Lymphocytes (Bld) [#/Vol] 1.5 10*3/uL [facility] Lymphocytes/100 WBC (Bld) 11.6 % [facility] MCH (RBC) [Entitic mass] 29.2 pg 27 - 34 pg [facility] MCHC (RBC) [Mass/Vol] 32.2 g/dL 32 - 36 g/dL [facility] MCV (RBC) [Entitic vol] 91 fL 80 - 100 fL [facility] Monocytes (Bld) [#/Vol] 1.1 10*3/uL High [facility] Monocytes/100 WBC (Bld) 7.9 % [facility] Neutrophils (Bld) [#/Vol] 10.4 10*3/uL High [facility] Neutrophils/100 WBC (Bld) 78.5 % [facility] Platelet mean volume (Bld) [Entitic vol] 8.7 fL 7 - 12 fL [facility] Platelets (Bld) [#/Vol] 170 10*3/uL [facility] RBC (Bld) [#/Vol] 3.03 10*6/uL Low [facility] WBC corrected for nucl RBC Auto (Bld) [#/Vol] 13.3 High [facility] COMPREHENSIVE METABOLIC PANE Elver 12-26-2023 Albumin [Mass/Vol] 2.4 g/dL Low 3.2-5.3 [facility] Comment on above: Performed By: #### C BCA, CMP ####[facility] ([id number])[address], [place] [address] ALP [Catalytic activity/Vol] 171 U/L High 39-130 [facility] Comment on above: Performed By: #### C BCA, CMP ####[facility] ([id number])[address], [address] [address] ALT [Catalytic activity/Vol] 16 U/L Normal 0-31 [facility] Comment on above: Performed By: #### C BCA, CMP ####[facility] ([id number])[address], [address] [address] Anion gap [Moles/Vol] 9 mmol/L Normal 5-15 [facility] Comment on above: Performed By: #### C BCA, CMP ####[facility] ([id number])[address], [address], [place] [address] AST [Catalytic activity/Vol] 23 U/L Normal 0-41 [facility] Comment on above: Performed By: #### C BCA, CMP ####[facility] ([id number])[address], [address], [place] [address] Bilirubin [Mass/Vol] 0.6 mg/dL Normal 0.3-1.2 [facility] Comment on above: Performed By: #### C BCA, CMP ####[facility] ([id number])[address], [address], [place] [address] Calcium [Mass/Vol] 6.8 mg/dL Critically low 8.5-10.5 [facility] Comment on above: Performed By: #### C BCA, CMP ####[facility] ([id number])[address], [address], [place] [address] Chloride [Moles/Vol] 110 mmol/L High 98-109 [facility] Comment on above: Performed By: #### C BCA, CMP ####[facility] ([id number])[address], [address], [place] [address] CO2 [Moles/Vol] 18 mmol/L Low 22-32 [facility] Comment on above: Performed By: #### C BCA, CMP ####[facility] ([id number])[address], [address], [place] [address] Creatinine [Mass/Vol] 1.11 mg/dL High 0.40-1.00 [facility] Comment on above: Result Comment: METH OD TRACEABLE TO IDMS STANDARD Performed By: #### C BCA, CMP ####[facility] ([id number])[address], [address], [place] [address] GFR/1.73 sq M.predicted among non-blacks MDRD (S/P/Bld) [Vol rate/Area] 55 mL/min/{1.73_m2} Low >59 [facility] Comment on above: Result Comment: Repo rted eGFR is based on theCKD-EPI 2020 equation that doesnot use a race coefficient. Performed By: #### C BCA, CMP ####[facility] ([id number])[address], [address], [place] [address] Glucose [Mass/Vol] 112 mg/dL High 65-99 [facility] Comment on above: Performed By: #### C BCA, CMP ####[facility] ([id number])[address] [address], [place] [address] Potassium [Moles/Vol] 4.3 mmol/L Normal 3.5-5.0 [facility] Comment on above: Performed By: #### C BCA, CMP ####[facility] ([id number])[address] [address] [place] [address] Protein [Mass/Vol] 5.6 g/dL Low 6.0-8.0 [facility] Comment on above: Performed By: #### C BCA, CMP ####[facility] ([id number])[address] [address] [place] [address] Sodium [Moles/Vol] 137 mmol/L Normal 134-146 [facility] Comment on above: Performed By: #### C BCA, CMP ####[facility] ([id number])[address] [address] [place] [address] Urea nitrogen [Mass/Vol] 20 mg/dL Normal 5-27 [facility] Comment on above: Performed By: #### C BCA, CMP ####[facility] ([id number])[address] [address] [place] [address] Calcium.ionized (Bld) [Mass/ Vol]on 12-26-2023 IONIZED CALCIUM 4.1 mg/dL Low 4.5-5.3 [facility] Comment on above: Performed By: #### 3 8230-9 ####[facility] ([id number])[address] [place] [address], [address] [place] [address] Interpretation and review of laboratory results Abnormal [facility] Comprehensive metabolic pane elver 12-26-2023 Albumin [Mass/Vol] 2.4 g/dL Low 3.2 - 5.3 g/dL [facility] ALP [Catalytic activity/Vol] 171 U/L High 39 - 130 U/L [facility] ALT No additional P-5'-P [Catalytic activity/Vol] 16 U/L 0 - 31 U/L [facility] Anion gap [Moles/Vol] 9 mmol/L 5 - 15 mmol/L [facility] AST [Catalytic activity/Vol] 23 U/L 0 - 41 U/L [facility] Bilirubin [Mass/Vol] 0.6 mg/dL 0.3 - 1.2 mg/dL [facility] Calcium [Mass/Vol] 6.8 mg/dL Critically low 8.5 - 1 0.5 mg/dL [facility] Chloride [Moles/Vol] 110 mmol/L High 98 - 109 mmol/L [facility] CO2 [Moles/Vol] 18 mmol/L Low 22 - 32 mmol/L [facility] Creatinine [Mass/Vol] 1.11 mg/dL High 0.40 - 1.00 mg/dL [facility] eGFR (CKD-EPI)non-race dependent 55 Low - PINF [facility] Glucose [Mass/Vol] 112 mg/dL High 65 - 99 mg/dL [facility] Interpretation and review of laboratory results Abnormal [facility] Potassium [Moles/Vol] 4.3 mmol/L 3.5 - 5.0 mmol/L [facility] Protein [Mass/Vol] 5.6 g/dL Low 6.0 - 8.0 g/dL [facility] Sodium [Moles/Vol] 137 mmol/L 134 - 146 mmol/L [facility] Urea nitrogen [Mass/Vol] 20 mg/dL 5 - 27 mg/dL [facility] Crossmatch RBC:Number of Uni ts: 1on 12-26-2023 BB Type Barcode 5100 [facility] Blood component type [id number] [facility] Crossmatch Compatible [facility] Expiration Date [id number] [facility] Status of unit TRANSFUSED [facility] Unit ABO O [facility] Unit number [id number] [facility] RH Positive [facility] Glucose Glucometer (BldC) [M ass/Vol]on 12-26-2023 Glucose [Mass/Vol] 112 mg/dL High 65-99 [facility] Glucose [Mass/Vol] 112 mg/dL High 65 - 99 mg/dL [facility] Interpretation and review of laboratory results Abnormal [facility] Glucose [Mass/Vol] 125 mg/dL High 65-99 [facility] Glucose [Mass/Vol] 125 mg/dL High 65 - 99 mg/dL [facility] Interpretation and review of laboratory results Abnormal [facility] Glucose [Mass/Vol] 109 mg/dL High 65-99 [facility] Glucose [Mass/Vol] 109 mg/dL High 65 - 99 mg/dL [facility] Interpretation and review of laboratory results Abnormal [facility] HGB AND HCTon 12-26-2023 Hematocrit (Bld) [Volume fraction] 25.6 % Low 35-47 [facility] Comment on above: Performed By: #### H H ####[facility] ([id number])[address], [address] [place] [address] Hemoglobin (Bld) [Mass/Vol] 8.4 g/dL Low 11.7-15.5 [facility] Comment on above: Performed By: #### H H ####[facility] ([id number])[address] [facility], [address] [place] [address] Hematocrit (Bld) [Volume fraction] 21.0 % Low 35-47 [facility] Comment on above: Performed By: #### H H ####[facility] ([id number])0 [facility], [address] [place] [address] Hemoglobin (Bld) [Mass/Vol] 6.8 g/dL Critically low 11.7-15.5 [facility] Comment on above: Performed By: #### H H ####[facility] ([id number])[address], [address] [place] [address] Hemoglobin and hematocrit, b loodon 12-26-2023 Interpretation and review of laboratory results Abnormal [facility] Hematocrit (Bld) [Volume fraction] 21.0 % Low 35 - 47 % [facility] Hemoglobin (Bld) [Mass/Vol] 6.8 g/dL Critically low 11.7 - 15.5 g/dL [facility] Interpretation and review of laboratory results Abnormal [facility] Ionized calciumon 12-26-2023 Calcium.ionized (Bld) [Mass/Vol] 4.1 mg/dL Low 4.5 - 5.3 mg/dL [facility] Lactate (P stan) [Moles/Vol]o n 12-26-2023 LACTATE W/REFLEX 0.9 mmol/L Normal 0.4-2.0 [facility] Comment on above: Result Comment: Resu lt did not trigger repeat Lactate,re-order if needed. Performed By: #### 3 2132-1 ####[facility] ([id number])[address], [address] [place] [address] [facility] Lactate w/ Reflexon 12-26-19 Lactate (P stan) [Moles/Vol] 0.9 mmol/L 0.4 - 2.0 mmol/L [facility] Type and screen(includes ind irect aram)on 12-26-2023 ABO O [facility] Rh Nom (Bld) Positive [facility] Vancomycin trough [Mass/Vol] on 12-26-2023 VANCOMYCIN TROUGH 25.2 ug/mL Critically high 5.0-20.0 [facility] Comment on above: Performed By: #### 4 092-3 ####[facility] ([id number])[address], [place] [address] Interpretation and review of laboratory results Abnormal [facility] Vancomycin, troughon 024 Vancomycin trough [Mass/Vol] 25.2 ug/mL Critically high 5.0 - 20.0 ug/mL [facility] Anti XA unfractionated hepar inon 12-25-2023 Heparin unfractionated Chromogenic method Qn (PPP) Low [facility] Bacteria identified Aer cx N om (Wound)on 12-25-2023 Interpretation and review of laboratory results Abnormal [facility] Microscopic observation Gram stain Nom (Unsp spec) >25 WHITE BLOOD CELLS/LPF [facility] Microscopic observation Gram stain Nom (Unsp spec) 10 to 24 SQUAMOUS EPITHELIAL CELLS/LPF [facility] Microscopic observation Gram stain Nom (Unsp spec) RARE GRAM POSITIVE COCCI IN CLUSTERS INTRACELLULAR EXTRACELLULAR [facility] Microscopic observation Gram stain Nom (Unsp spec) Positive Abnormal [facility] Service comment (Unsp spec) [Interp] FEW ESCHERICHIA COLI Abnormal [facility] Service comment (Unsp spec) [Interp] RARE STAPHYLOCOCCUS AUREUS METHICILLIN RESISTANT Abnormal [facility] Service comment (Unsp spec) [Interp] RARE STREPTOCOCCUS PYOGENES (GROUP A) Abnormal [facility] Service comment (Unsp spec) [Interp] ALONG WITH FEW NORMAL SKIN LALY [facility] CBC AND AUTO DIFFon 12-25-19 24 ABSOLUTE BASOPHIL 0.1 X10E9/L Normal 0.0-0.2 [facility] Comment on above: Performed By: #### C BCA, 3274-8, CMP ####[facility] ([id number])[address], [address], [place] [address] ABSOLUTE NEUTROPHIL 10.4 X10E9/L High 1.5-6.6 [facility] Comment on above: Performed By: #### C MONSE, 3274-04, CMP ####[facility] ([id number])[address], [address], [place] [address] Basophils/100 WBC (Bld) 0.5 % Normal [facility] Comment on above: Performed By: #### Dru SHEA, 3274-04, CMP ####[facility] ([id number])[address], [address], [place] [address] Eosinophils (Bld) [#/Vol] 0.1 10*3/uL Normal 0.0-0.4 [facility] Comment on above: Performed By: #### Dru SHEA, 3274-04, CMP ####[facility] ([id number])[address], [address], [place] [address] Eosinophils/100 WBC (Bld) 0.9 % Normal [facility] Comment on above: Performed By: #### Dru SHEA, 3274-04, CMP ####[facility] ([id number])[address] [address], [place] [address] Erythrocyte distribution width (RBC) [Ratio] 18.3 % High 11.5-15.0 [facility] Comment on above: Performed By: #### Dru SHEA, 3274-04, CMP ####[facility] ([id number])[address] [address], [place] [address] Hematocrit (Bld) [Volume fraction] 22.6 % Low 35-47 [facility] Comment on above: Performed By: #### Dru SHEA, 3274-04, CMP ####[facility] ([id number])[address] [address] Hemoglobin (Bld) [Mass/Vol] 7.3 g/dL Low 11.7-15.5 [facility] Comment on above: Performed By: #### Dru SHEA, 3274-04, CMP ####[facility] ([id number])[address] [address] Lymphocytes (Bld) [#/Vol] 1.4 10*3/uL Normal 1.0-3.5 [facility] Comment on above: Performed By: #### Dru SHEA, 3274-04, CMP ####[facility] ([id number])[address], [address] [place] [address] Lymphocytes/100 WBC (Bld) 10.6 % Normal [facility] Comment on above: Performed By: #### Dru SHEA, 3274-04, CMP ####[facility] ([id number])[address] [address] MCH (RBC) [Entitic mass] 29.1 pg Normal 27-34 [facility] Comment on above: Performed By: #### Dru SHEA, 3274-04, CMP ####[facility] ([id number])[address], [address] [address] MCHC (RBC) [Mass/Vol] 32.2 g/dL Normal 32-36 [facility] Comment on above: Performed By: #### Dru SHEA, 3274-04, CMP ####[facility] ([id number])[address] [address] MCV (RBC) [Entitic vol] 90 fL Normal 80-100 [facility] Comment on above: Performed By: #### Dru SHEA, 3274-04, CMP ####[facility] ([id number])[address] [address] Monocytes (Bld) [#/Vol] 1.0 10*3/uL High 0-0.9 [facility] Comment on above: Performed By: #### Dru SHEA, 3274-04, CMP ####[facility] ([id number])[address], [address] [address] Monocytes/100 WBC (Bld) 7.5 % Normal [facility] Comment on above: Performed By: #### Dru SHEA, 3274-8, CMP ####[facility] ([id number])[address], [address] [address] Neutrophils/100 WBC (Bld) 80.5 % Normal [facility] Comment on above: Performed By: #### Dru SHEA, 3274-04, CMP ####[facility] ([id number])[address], [address] [address] Platelet mean volume (Bld) [Entitic vol] 8.8 fL Normal 7-12 [facility] Comment on above: Performed By: #### Dru SHEA, 8, CMP ####[facility] ([id number])[address], [address] [address] Platelets (Bld) [#/Vol] 189 10*3/uL Normal 150-450 [facility] Comment on above: Performed By: #### Dru SHEA, 3274-04, CMP ####[facility] ([id number])[address] [address] [address] RBC COUNT 2.50 X10E12/L Low 3.80-5.20 [facility] Comment on above: Performed By: #### Dru SHEA, 3274-04, CMP ####[facility] ([id number])[address] [address] [address] WBC (Bld) [#/Vol] 13.0 10*3/uL High 4.0-11.0 [facility] Comment on above: Performed By: #### Dru SHEA, 48, CMP ####[facility] ([id number])[address] [address] [address] CBC auto differentialon 03-2 Basophils (Bld) [#/Vol] 0.1 10*3/uL [facility] Basophils/100 WBC (Bld) 0.5 % [facility] Eosinophils (Bld) [#/Vol] 0.1 10*3/uL [facility] Eosinophils/100 WBC (Bld) 0.9 % [facility] Erythrocyte distribution width (RBC) [Ratio] 18.3 % High 11.5 - 15.0 % [facility] Hematocrit (Bld) [Volume fraction] 22.6 % Low 35 - 47 % [facility] Hemoglobin (Bld) [Mass/Vol] 7.3 g/dL Low 11.7 - 15.5 g/dL [facility] Interpretation and review of laboratory results Abnormal [facility] Lymphocytes (Bld) [#/Vol] 1.4 10*3/uL [facility] Lymphocytes/100 WBC (Bld) 10.6 % [facility] MCH (RBC) [Entitic mass] 29.1 pg 27 - 34 pg [facility] MCHC (RBC) [Mass/Vol] 32.2 g/dL 32 - 36 g/dL [facility] MCV (RBC) [Entitic vol] 90 fL 80 - 100 fL [facility] Monocytes (Bld) [#/Vol] 1.0 10*3/uL High [facility] Monocytes/100 WBC (Bld) 7.5 % [facility] Neutrophils (Bld) [#/Vol] 10.4 10*3/uL High [facility] Neutrophils/100 WBC (Bld) 80.5 % [facility] Platelet mean volume (Bld) [Entitic vol] 8.8 fL 7 - 12 fL [facility] Platelets (Bld) [#/Vol] 189 10*3/uL [facility] RBC (Bld) [#/Vol] 2.50 10*6/uL Low [facility] WBC corrected for nucl RBC Auto (Bld) [#/Vol] 13.0 High [facility] COMPREHENSIVE METABOLIC PANE Elver 12-25-2023 Albumin [Mass/Vol] 2.1 g/dL Low 3.2-5.3 [facility] Comment on above: Performed By: #### C BCA, 3273-, CMP ####[facility] ([id number])[address], [address], [place] [address] ALP [Catalytic activity/Vol] 174 U/L High 39-130 [facility] Comment on above: Performed By: #### C BCA, 3273-8, CMP ####[facility] ([id number])[address], [address], [place] [address] ALT [Catalytic activity/Vol] 16 U/L Normal 0-31 [facility] Comment on above: Performed By: #### C MONSE, 3273-, CMP ####[facility] ([id number])[address], [address], [place] [address] Anion gap [Moles/Vol] 8 mmol/L Normal 5-15 [facility] Comment on above: Performed By: #### C BCA, 3273-8, CMP ####[facility] ([id number])[address], [address], [place] [address] AST [Catalytic activity/Vol] 23 U/L Normal 0-41 [facility] Comment on above: Performed By: #### C BCA, 3273-8, CMP ####[facility] ([id number])[address], [address], [place] [address] Bilirubin [Mass/Vol] 0.4 mg/dL Normal 0.3-1.2 [facility] Comment on above: Performed By: #### C BCA, 3273-8, CMP ####[facility] ([id number])[address], [address], [place] [address] Calcium [Mass/Vol] 6.8 mg/dL Critically low 8.5-10.5 [facility] Comment on above: Performed By: #### C BCA, 3273-8, CMP ####[facility] ([id number])[address], [place] [address] Chloride [Moles/Vol] 115 mmol/L High 98-109 [facility] Comment on above: Performed By: #### C MONSE, 3274-8, CMP ####[facility] ([id number])[address], [address], [place] [address] CO2 [Moles/Vol] 20 mmol/L Low 22-32 [facility] Comment on above: Performed By: #### C MONSE, [address], CMP ####[facility] ([id number])[address], [address], [place] [address] Creatinine [Mass/Vol] 1.14 mg/dL High 0.40-1.00 [facility] Comment on above: Result Comment: METH OD TRACEABLE TO IDMS STANDARD Performed By: #### C MONSE, 3278, CMP ####[facility] ([id number])[address], [address], [place] [address] GFR/1.73 sq M.predicted among non-blacks MDRD (S/P/Bld) [Vol rate/Area] 53 mL/min/{1.73_m2} Low >59 [facility] Comment on above: Result Comment: Repo rted eGFR is based on theCKD-EPI 2020 equation that doesnot use a race coefficient. Performed By: #### C MONSE, [address], CMP ####[facility] ([id number])[address], [address], [place] [address] Glucose [Mass/Vol] 96 mg/dL Normal 65-99 [facility] Comment on above: Performed By: #### C MONSE, 3274-8, CMP ####[facility] ([id number])[address], [address], [place] [address] Potassium [Moles/Vol] 4.4 mmol/L Normal 3.5-5.0 [facility] Comment on above: Performed By: #### C BCA, 3274-8, CMP ####[facility] ([id number])[address], [address] [address] Protein [Mass/Vol] 5.0 g/dL Low 6.0-8.0 [facility] Comment on above: Performed By: #### C BCA, 3274-8, CMP ####[facility] ([id number])[address], [address] [address] Sodium [Moles/Vol] 143 mmol/L Normal 134-146 [facility] Comment on above: Performed By: #### C BCA, 3274-8, CMP ####[facility] ([id number])[address], [place] [address] Urea nitrogen [Mass/Vol] 24 mg/dL Normal 5-27 [facility] Comment on above: Performed By: #### C BCA, 3274-8, CMP ####[facility] ([id number])[address], [address] [place] [address] Calcium.ionized (Bld) [Mass/ Vol]on 12-25-2023 IONIZED CALCIUM 4.4 mg/dL Low 4.5-5.3 [facility] Comment on above: Performed By: #### 3 8230-9 ####[facility] ([id number])[address], [address], [place] [address] Interpretation and review of laboratory results Abnormal [facility] IONIZED CALCIUM 4.4 mg/dL Low 4.5-5.3 [facility] Comment on above: Performed By: #### 3 8230-9 ####[facility] ([id number])[address], [address] [place] [address], [place] [address] Interpretation and review of laboratory results Abnormal [facility] Comprehensive metabolic pane elver 12-25-2023 Albumin [Mass/Vol] 2.1 g/dL Low 3.2 - 5.3 g/dL [facility] ALP [Catalytic activity/Vol] 174 U/L High 39 - 130 U/L [facility] ALT No additional P-5'-P [Catalytic activity/Vol] 16 U/L 0 - 31 U/L [facility] Anion gap [Moles/Vol] 8 mmol/L 5 - 15 mmol/L [facility] AST [Catalytic activity/Vol] 23 U/L 0 - 41 U/L [facility] Bilirubin [Mass/Vol] 0.4 mg/dL 0.3 - 1.2 mg/dL [facility] Calcium [Mass/Vol] 6.8 mg/dL Critically low 8.5 - 1 0.5 mg/dL [facility] Chloride [Moles/Vol] 115 mmol/L High 98 - 109 mmol/L [facility] CO2 [Moles/Vol] 20 mmol/L Low 22 - 32 mmol/L [facility] Creatinine [Mass/Vol] 1.14 mg/dL High 0.40 - 1.00 mg/dL [facility] eGFR (CKD-EPI)non-race dependent 53 Low - PINF [facility] Glucose [Mass/Vol] 96 mg/dL 65 - 99 mg/dL [facility] Interpretation and review of laboratory results Abnormal [facility] Potassium [Moles/Vol] 4.4 mmol/L 3.5 - 5.0 mmol/L [facility] Protein [Mass/Vol] 5.0 g/dL Low 6.0 - 8.0 g/dL [facility] Sodium [Moles/Vol] 143 mmol/L 134 - 146 mmol/L [facility] Urea nitrogen [Mass/Vol] 24 mg/dL 5 - 27 mg/dL [facility] ECG 12 leadon 12-25-2023 TRACEMASTERVUE [facility] Glucose Glucometer (BldC) [M ass/Vol]on 12-25-2023 Glucose [Mass/Vol] 108 mg/dL High 65-99 [facility] Glucose [Mass/Vol] 108 mg/dL High 65 - 99 mg/dL [facility] Interpretation and review of laboratory results Abnormal [facility] Glucose [Mass/Vol] 106 mg/dL High 65-99 [facility] Glucose [Mass/Vol] 106 mg/dL High 65 - 99 mg/dL [facility] Interpretation and review of laboratory results Abnormal [facility] Glucose [Mass/Vol] 112 mg/dL High 65-99 [facility] Glucose [Mass/Vol] 112 mg/dL High 65 - 99 mg/dL [facility] Interpretation and review of laboratory results Abnormal [facility] Glucose [Mass/Vol] 99 mg/dL Normal 65-99 [facility] Glucose [Mass/Vol] 99 mg/dL 65 - 99 mg/dL [facility] HGB AND HCTon 12-25-2023 Hematocrit (Bld) [Volume fraction] 21.6 % Low 35-47 [facility] Comment on above: Performed By: #### H H ####[facility] ([id number])[address], [address], [place] [address] Hemoglobin (Bld) [Mass/Vol] 6.9 g/dL Critically low 11.7-15.5 [facility] Comment on above: Performed By: #### H H ####[facility] ([id number])[address], [address], [place] [address] Hematocrit (Bld) [Volume fraction] 24.1 % Low 35-47 [facility] Comment on above: Performed By: #### H H ####[facility] ([id number])[address], [address] [address] Hemoglobin (Bld) [Mass/Vol] 7.9 g/dL Low 11.7-15.5 [facility] Comment on above: Performed By: #### H H ####[facility] ([id number])[address], [place] [address] Hematocrit (Bld) [Volume fraction] 22.2 % Low 35-47 [facility] Comment on above: Performed By: #### H H, 21727-7 ####[facility] ([id number])[address] [facility], [address] [place] [address] Hemoglobin (Bld) [Mass/Vol] 7.1 g/dL Low 11.7-15.5 [facility] Comment on above: Performed By: #### H H, 00944-9 ####[facility] ([id number])0 [facility], [address] [place] [address] Hemoglobin and hematocrit, b loodon 12-25-2023 Interpretation and review of laboratory results Abnormal [facility] Hematocrit (Bld) [Volume fraction] 24.1 % Low 35 - 47 % [facility] Hemoglobin (Bld) [Mass/Vol] 7.9 g/dL Low 11.7 - 15.5 g/dL [facility] Interpretation and review of laboratory results Abnormal [facility] Heparin unfractionated Chrom ogenic method Qn (PPP)on 12-25-2023 ANTI XA UFH <0.04 Low 0.30-0.70 [facility] Comment on above: Result Comment: Opti mal time for testing is 6 hrs post dosageThis test is specific for monitoring patientson UFH, and is not recommended for use withother Anti-Xa medications. Performed By: #### C BCA, 3274-8, CMP ####[facility] ([id number])0 [facility], [address] [place] [address] Interpretation and review of laboratory results Abnormal [facility] Ionized calciumon 12-25-2023 Calcium.ionized (Bld) [Mass/Vol] 4.4 mg/dL Low 4.5 - 5.3 mg/dL [facility] Calcium.ionized (Bld) [Mass/Vol] 4.4 mg/dL Low 4.5 - 5.3 mg/dL [facility] RESP PATHOGENS/AEGE-[id number] 12-25-2023 Respiratory pathogens DNA and RNA panel CHELLY+non-probe (Nph) Normal [facility] Comment on above: Performed By: #### 8 2159-5 ####[facility] ([id number])[address] [place] [address], [address] [place] [address] Respiratory pathogens DNA an d RNA panel CHELLY+non-probe (Nph)on 12-25-2023 Adenovirus DNA CHELLY+non-probe Ql (Nph) Not detected Not Detected^No t Detected [facility] B. parapertussis [id number] DNA CHELLY+non-probe Ql (Nph) Not detected Not Detected^No t Detected [facility] B. pertussis toxin promoter region CHELLY+non-probe Ql (Nph) Not detected Not Detected^No t Detected [facility] C. pneumoniae DNA CHELLY+non-probe Ql (Nph) Not detected Not Detected^No t Detected [facility] FLUAV RNA CHELLY+non-probe Ql (Nph) Not detected Not Detected^No t Detected [facility] FLUBV RNA CHELLY+non-probe Ql (Nph) Not detected Not Detected^No t Detected [facility] HCoV 229E RNA CHELLY+non-probe Ql (Nph) Not detected Not Detected^No t Detected [facility] HCoV HKU1 RNA CHELLY+non-probe Ql (Nph) Not detected Not Detected^No t Detected [facility] HCoV NL63 RNA CHELLY+non-probe Ql (Nph) Not detected Not Detected^No t Detected [facility] HCoV OC43 RNA CHELLY+non-probe Ql (Nph) Not detected Not Detected^No t Detected [facility] hMPV RNA CHELLY+non-probe Ql (Nph) Not detected Not Detected^No t Detected [facility] M. pneumoniae DNA CHELLY+non-probe Ql (Nph) Not detected Not Detected^No t Detected [facility] Parainfluenza virus 1 RNA CHELLY+non-probe Ql (Nph) Not detected Not Detected^No t Detected [facility] Parainfluenza virus 2 RNA CHELLY+non-probe Ql (Nph) Not detected Not Detected^No t Detected [facility] Parainfluenza virus 3 RNA CHELLY+non-probe Ql (Nph) Not detected Not Detected^No t Detected [facility] Parainfluenza virus 4 RNA CHELLY+non-probe Ql (Nph) Not detected Not Detected^No t Detected [facility] Rhinovirus+Enterov irus RNA CHELLY+non-probe Ql (Nph) Not detected Not Detected^No t Detected [facility] RSV RNA CHELLY+non-probe Ql (Nph) Not detected Not Detected^No t Detected [facility] SARS-CoV-2 (COVID-19) RNA CHELLY+probe Ql (Resp) Not detected Not Detected^No t Detected [facility] Specimen source Nom (Body fld) NASO PHARYNX [facility] TROPONIN Ion 12-25-2023 Troponin I.cardiac [Mass/Vol] 0.10 ng/mL High 0.00-0.04 [facility] Comment on above: Result Comment: Conc entrations greater than or equalto 0.05 ng/ml are considered elevated.Elevations of Troponin may be due to causesother than myocardial ischemia. Recommendserial Troponin testing be performed. Performed By: #### H H, 67210-6 ####[facility] ([id number])[address] [place] [address], [address] [place] [address] Troponin Ion 12-25-2023 Troponin I.cardiac [Mass/Vol] 0.10 ng/mL High 0.00 - 0.04 ng/mL [facility] Troponin I.cardiac [Mass/Vol ]on 12-25-2023 Interpretation and review of laboratory results Abnormal [facility] Anti XA unfractionated hepar inon 12-24-2023 Heparin unfractionated Chromogenic method Qn (PPP) 0.42 [facility] BASIC METABOLIC PANLon 12-23 Anion gap [Moles/Vol] 8 mmol/L Normal 5-15 [facility] Comment on above: Performed By: #### B MP ####[facility] ([id number])[address] [place] [address], [address] [place] [address] Calcium [Mass/Vol] 6.7 mg/dL Critically low 8.5-10.5 [facility] Comment on above: Performed By: #### B MP ####[facility] ([id number])[address], [place] [address] Chloride [Moles/Vol] 113 mmol/L High 98-109 [facility] Comment on above: Performed By: #### B MP ####[facility] ([id number])[address] [address], [place] [address] CO2 [Moles/Vol] 20 mmol/L Low 22-32 [facility] Comment on above: Performed By: #### B MP ####[facility] ([id number])[address] [address] [address] Creatinine [Mass/Vol] 1.11 mg/dL High 0.40-1.00 [facility] Comment on above: Result Comment: METH OD TRACEABLE TO IDMS STANDARD Performed By: #### B MP ####[facility] ([id number])[address] [address] [address] GFR/1.73 sq M.predicted among non-blacks MDRD (S/P/Bld) [Vol rate/Area] 55 mL/min/{1.73_m2} Low >59 [facility] Comment on above: Result Comment: Repo rted eGFR is based on theCKD-EPI 2020 equation that doesnot use a race coefficient. Performed By: #### B MP ####[facility] ([id number])[address] [address] [place] [address] Glucose [Mass/Vol] 95 mg/dL Normal 65-99 [facility] Comment on above: Performed By: #### B MP ####[facility] ([id number])[address] [address], [place] [address] Potassium [Moles/Vol] 4.2 mmol/L Normal 3.5-5.0 [facility] Comment on above: Performed By: #### B MP ####[facility] ([id number])[address], [address] [address] Sodium [Moles/Vol] 141 mmol/L Normal 134-146 [facility] Comment on above: Performed By: #### B MP ####[facility] ([id number])[address], [address] [address] Urea nitrogen [Mass/Vol] 26 mg/dL Normal 5-27 [facility] Comment on above: Performed By: #### B MP ####[facility] ([id number])[address], [address] [address] Basic Metabolic Panelon 11-29 Anion gap [Moles/Vol] 8 mmol/L 5 - 15 mmol/L [facility] Calcium [Mass/Vol] 6.7 mg/dL Critically low 8.5 - 1 0.5 mg/dL [facility] Chloride [Moles/Vol] 113 mmol/L High 98 - 109 mmol/L [facility] CO2 [Moles/Vol] 20 mmol/L Low 22 - 32 mmol/L [facility] Creatinine [Mass/Vol] 1.11 mg/dL High 0.40 - 1.00 mg/dL [facility] eGFR (CKD-EPI)non-race dependent 55 Low - PINF [facility] Glucose [Mass/Vol] 95 mg/dL 65 - 99 mg/dL [facility] Interpretation and review of laboratory results Abnormal [facility] Potassium [Moles/Vol] 4.2 mmol/L 3.5 - 5.0 mmol/L [facility] Sodium [Moles/Vol] 141 mmol/L 134 - 146 mmol/L [facility] Urea nitrogen [Mass/Vol] 26 mg/dL 5 - 27 mg/dL [facility] CBC AND AUTO DIFFon 12-24-19 24 ABSOLUTE BASOPHIL 0.1 X10E9/L Normal 0.0-0.2 [facility] Comment on above: Performed By: #### 3 274-8, CBCA, CMP ####[facility] ([id number])[address] [address] ABSOLUTE NEUTROPHIL 14.8 X10E9/L High 1.5-6.6 [facility] Comment on above: Performed By: #### 3 274-8, CBCA, CMP ####[facility] ([id number])[address], [place] [address] Basophils/100 WBC (Bld) 0.3 % Normal [facility] Comment on above: Performed By: #### 3 274-8, CBCA, CMP ####[facility] ([id number])[address] [address], [place] [address] Eosinophils (Bld) [#/Vol] 0.1 10*3/uL Normal 0.0-0.4 [facility] Comment on above: Performed By: #### 3 274-8, CBCA, CMP ####[facility] ([id number])[address], [place] [address] Eosinophils/100 WBC (Bld) 0.5 % Normal [facility] Comment on above: Performed By: #### 3 274-8, CBCA, CMP ####[facility] ([id number])[address] [address] [address] [address] Erythrocyte distribution width (RBC) [Ratio] 18.1 % High 11.5-15.0 [facility] Comment on above: Performed By: #### 3 274-8, CBCA, CMP ####[facility] ([id number])0 [address] [address] [address] Hematocrit (Bld) [Volume fraction] 24.4 % Low 35-47 [facility] Comment on above: Performed By: #### 3 274-8, CBCA, CMP ####[facility] ([id number])0 [address] [address] [place] [address] Hemoglobin (Bld) [Mass/Vol] 7.9 g/dL Low 11.7-15.5 [facility] Comment on above: Performed By: #### 3 274-8, CBCA, CMP ####[facility] ([id number])[address] [address] Lymphocytes (Bld) [#/Vol] 1.8 10*3/uL Normal 1.0-3.5 [facility] Comment on above: Performed By: #### 3 274-8, CBCA, CMP ####[facility] ([id number])[address] [address] Lymphocytes/100 WBC (Bld) 10.3 % Normal [facility] Comment on above: Performed By: #### 3 274-8, CBCA, CMP ####[facility] ([id number])[address] [address] MCH (RBC) [Entitic mass] 29.1 pg Normal 27-34 [facility] Comment on above: Performed By: #### 3 274-8, CBCA, CMP ####[facility] ([id number])[address] [address] MCHC (RBC) [Mass/Vol] 32.5 g/dL Normal 32-36 [facility] Comment on above: Performed By: #### 3 274-8, CBCA, CMP ####[facility] ([id number])[address] [address] MCV (RBC) [Entitic vol] 90 fL Normal 80-100 [facility] Comment on above: Performed By: #### 3 274-8, CBCA, CMP ####[facility] ([id number])[address], [address], [place] [address] Monocytes (Bld) [#/Vol] 1.1 10*3/uL High 0-0.9 [facility] Comment on above: Performed By: #### 3 274-8, CBCA, CMP ####[facility] ([id number])[address], [address] [place] [address] Monocytes/100 WBC (Bld) 6.4 % Normal [facility] Comment on above: Performed By: #### 3 274-8, CBCA, CMP ####[facility] ([id number])[address], [address] [place] [address] Neutrophils/100 WBC (Bld) 82.5 % Normal [facility] Comment on above: Performed By: #### 3 274-8, CBCA, CMP ####[facility] ([id number])[address], [address] [place] [address] Platelet mean volume (Bld) [Entitic vol] 8.9 fL Normal 7-12 [facility] Comment on above: Performed By: #### 3 274-8, CBCA, CMP ####[facility] ([id number])[address] [address] [place] [address] Platelets (Bld) [#/Vol] 211 10*3/uL Normal 150-450 [facility] Comment on above: Performed By: #### 3 274-8, CBCA, CMP ####[facility] ([id number])[address], [address], [place] [address] RBC COUNT 2.72 X10E12/L Low 3.80-5.20 [facility] Comment on above: Performed By: #### 3 274-8, CBCA, CMP ####[facility] ([id number])[address], [address] [place] [address] WBC (Bld) [#/Vol] 17.9 10*3/uL High 4.0-11.0 [facility] Comment on above: Performed By: #### 3 274-8, CBCA, CMP ####[facility] ([id number])[address], [address], [place] [address] CBC auto differentialon 11-29 Basophils (Bld) [#/Vol] 0.1 10*3/uL [facility] Basophils/100 WBC (Bld) 0.3 % [facility] Eosinophils (Bld) [#/Vol] 0.1 10*3/uL [facility] Eosinophils/100 WBC (Bld) 0.5 % [facility] Erythrocyte distribution width (RBC) [Ratio] 18.1 % High 11.5 - 15.0 % [facility] Hematocrit (Bld) [Volume fraction] 24.4 % Low 35 - 47 % [facility] Hemoglobin (Bld) [Mass/Vol] 7.9 g/dL Low 11.7 - 15.5 g/dL [facility] Interpretation and review of laboratory results Abnormal [facility] Lymphocytes (Bld) [#/Vol] 1.8 10*3/uL [facility] Lymphocytes/100 WBC (Bld) 10.3 % [facility] MCH (RBC) [Entitic mass] 29.1 pg 27 - 34 pg [facility] MCHC (RBC) [Mass/Vol] 32.5 g/dL 32 - 36 g/dL [facility] MCV (RBC) [Entitic vol] 90 fL 80 - 100 fL [facility] Monocytes (Bld) [#/Vol] 1.1 10*3/uL High [facility] Monocytes/100 WBC (Bld) 6.4 % [facility] Neutrophils (Bld) [#/Vol] 14.8 10*3/uL High [facility] Neutrophils/100 WBC (Bld) 82.5 % [facility] Platelet mean volume (Bld) [Entitic vol] 8.9 fL 7 - 12 fL [facility] Platelets (Bld) [#/Vol] 211 10*3/uL [facility] RBC (Bld) [#/Vol] 2.72 10*6/uL Low [facility] WBC corrected for nucl RBC Auto (Bld) [#/Vol] 17.9 High [facility] COMPREHENSIVE METABOLIC PANE Elver 12-24-2023 Albumin [Mass/Vol] 2.3 g/dL Low 3.2-5.3 [facility] Comment on above: Performed By: #### 3 274-8, CBCA, CMP ####[facility] ([id number])[address], [address] [address] ALP [Catalytic activity/Vol] 198 U/L High 39-130 [facility] Comment on above: Performed By: #### 3 274-8, CBCA, CMP ####[facility] ([id number])[address], [address] [address] ALT [Catalytic activity/Vol] 18 U/L Normal 0-31 [facility] Comment on above: Performed By: #### 3 274-8, CBCA, CMP ####[facility] ([id number])[address], [address], [place] [address] Anion gap [Moles/Vol] 10 mmol/L Normal 5-15 [facility] Comment on above: Performed By: #### 3 274-8, CBCA, CMP ####[facility] ([id number])[address], [address], [place] [address] AST [Catalytic activity/Vol] 23 U/L Normal 0-41 [facility] Comment on above: Performed By: #### 3 274-8, CBCA, CMP ####[facility] ([id number])[address], [address] [address] Bilirubin [Mass/Vol] 0.5 mg/dL Normal 0.3-1.2 [facility] Comment on above: Performed By: #### 3 274-8, CBCA, CMP ####[facility] ([id number])[address], [address], [place] [address] Calcium [Mass/Vol] 6.8 mg/dL Critically low 8.5-10.5 [facility] Comment on above: Performed By: #### 3 274-8, CBCA, CMP ####[facility] ([id number])[address], [address], [place] [address] Chloride [Moles/Vol] 115 mmol/L High 98-109 [facility] Comment on above: Performed By: #### 3 274-8, CBCA, CMP ####[facility] ([id number])[address], [address], [place] [address] CO2 [Moles/Vol] 19 mmol/L Low 22-32 [facility] Comment on above: Performed By: #### 3 274-8, CBCA, CMP ####[facility] ([id number])[address] [address], [place] [address] Creatinine [Mass/Vol] 1.17 mg/dL High 0.40-1.00 [facility] Comment on above: Result Comment: METH OD TRACEABLE TO IDMS STANDARD Performed By: #### 3 274-8, CBCA, CMP ####[facility] ([id number])[address] [address], [place] [address] GFR/1.73 sq M.predicted among non-blacks MDRD (S/P/Bld) [Vol rate/Area] 51 mL/min/{1.73_m2} Low >59 [facility] Comment on above: Result Comment: Repo rted eGFR is based on theCKD-EPI 2020 equation that doesnot use a race coefficient. Performed By: #### 3 274-8, CBCA, CMP ####[facility] ([id number])[address] [address], [place] [address] Glucose [Mass/Vol] 99 mg/dL Normal 65-99 [facility] Comment on above: Performed By: #### 3 274-8, CBCA, CMP ####[facility] ([id number])[address], [address], [place] [address] Potassium [Moles/Vol] 4.0 mmol/L Normal 3.5-5.0 [facility] Comment on above: Performed By: #### 3 274-8, CBCA, CMP ####[facility] ([id number])[address], [address] [place] [address] Protein [Mass/Vol] 6.0 g/dL Normal 6.0-8.0 [facility] Comment on above: Performed By: #### 3 274-8, CBCA, CMP ####[facility] ([id number])[address], [address] [place] [address] Sodium [Moles/Vol] 144 mmol/L Normal 134-146 [facility] Comment on above: Performed By: #### 3 274-8, CBCA, CMP ####[facility] ([id number])[address], [address], [place] [address] Urea nitrogen [Mass/Vol] 27 mg/dL Normal 5-27 [facility] Comment on above: Performed By: #### 3 274-8, CBCA, CMP ####[facility] ([id number])[address], [address], [place] [address] Calcium.ionized (Bld) [Mass/ Vol]on 12-24-2023 IONIZED CALCIUM 4.2 mg/dL Low 4.5-5.3 [facility] Comment on above: Performed By: #### 3 8230-9 ####[facility] ([id number])[address], [address], [place] [address] Interpretation and review of laboratory results Abnormal [facility] Comprehensive metabolic pane elver 12-24-2023 Albumin [Mass/Vol] 2.3 g/dL Low 3.2 - 5.3 g/dL [facility] ALP [Catalytic activity/Vol] 198 U/L High 39 - 130 U/L [facility] ALT No additional P-5'-P [Catalytic activity/Vol] 18 U/L 0 - 31 U/L [facility] Anion gap [Moles/Vol] 10 mmol/L 5 - 15 mmol/L [facility] AST [Catalytic activity/Vol] 23 U/L 0 - 41 U/L [facility] Bilirubin [Mass/Vol] 0.5 mg/dL 0.3 - 1.2 mg/dL [facility] Calcium [Mass/Vol] 6.8 mg/dL Critically low 8.5 - 1 0.5 mg/dL [facility] Chloride [Moles/Vol] 115 mmol/L High 98 - 109 mmol/L [facility] CO2 [Moles/Vol] 19 mmol/L Low 22 - 32 mmol/L [facility] Creatinine [Mass/Vol] 1.17 mg/dL High 0.40 - 1.00 mg/dL [facility] eGFR (CKD-EPI)non-race dependent 51 Low - PINF [facility] Glucose [Mass/Vol] 99 mg/dL 65 - 99 mg/dL [facility] Interpretation and review of laboratory results Abnormal [facility] Potassium [Moles/Vol] 4.0 mmol/L 3.5 - 5.0 mmol/L [facility] Protein [Mass/Vol] 6.0 g/dL 6.0 - 8.0 g/dL [facility] Sodium [Moles/Vol] 144 mmol/L 134 - 146 mmol/L [facility] Urea nitrogen [Mass/Vol] 27 mg/dL 5 - 27 mg/dL [facility] ECG 12 leadon 12-24-2023 TRACEMASTERVUE [facility] Hemoglobin and hematocrit, b loodon 12-24-2023 Hematocrit (Bld) [Volume fraction] 22.2 % Low 35 - 47 % [facility] Hemoglobin (Bld) [Mass/Vol] 7.1 g/dL Low 11.7 - 15.5 g/dL [facility] Interpretation and review of laboratory results Abnormal [facility] Heparin unfractionated Chrom ogenic method Qn (PPP)on 12-24-2023 ANTI XA UFH 0.42 IU/mL Normal 0.30-0.70 [facility] Comment on above: Result Comment: Opti mal time for testing is 6 hrs post dosageThis test is specific for monitoring patientson UFH, and is not recommended for use withother Anti-Xa medications. Performed By: #### 3 274-8, CBCA, CMP ####[facility] ([id number])[address] [facility], [address] [place] [address] Ionized calciumon 12-24-2023 Calcium.ionized (Bld) [Mass/Vol] 4.2 mg/dL Low 4.5 - 5.3 mg/dL [facility] Anti XA unfractionated hepar inon 12-23-2023 Heparin unfractionated Chromogenic method Qn (PPP) 0.31 [facility] Heparin unfractionated Chromogenic method Qn (PPP) 0.42 [facility] Blood gas, venouson 12-23-19 Arterial patency Wrist artery --pre arterial puncture [facility] Base deficit (Bld) [Moles/Vol] 5.0 mmol/L High [facility] CO2 (BldV) [Partial pressure] 26.9 mm[Hg] Low [facility] HCO3 (Bld) [Moles/Vol] 18.1 mmol/L Low [facility] Interpretation and review of laboratory results Abnormal [facility] Oxygen (BldV) [Partial pressure] 29 mm[Hg] Low [facility] Oxygen therapy source and amount [CARE] NC [facility] Oxygen/Inspired gas setting [Volume Fraction] Ventilator 28 % [facility] pH (BldV) 7.437 [pH] High 7.320 - 7.420 [facility] SaO2% Calculated from oxygen partial pressure (BldV) [Mass fraction] 58.0 % Low 80.0 - PINF % [facility] Specimen site Narrative N/A [facility] Specimen type Nom (Spec) VENOUS [facility] CBC AND AUTO DIFFon 12-23-19 ABSOLUTE BASOPHIL 0.0 X10E9/L Normal 0.0-0.2 [facility] Comment on above: Performed By: #### C BCA, CMP, , 94733-9 ####[facility] ([id number])[address], [address], [place] [address] ABSOLUTE NEUTROPHIL 12.7 X10E9/L High 1.5-6.6 [facility] Comment on above: Performed By: #### C BCA, CMP, , 98394-9 ####[facility] ([id number])[address], [address] [place] [address] Basophils/100 WBC (Bld) 0.3 % Normal [facility] Comment on above: Performed By: #### C BCA, CMP, , 34432-1 ####[facility] ([id number])[address] [address], [place] [address] Eosinophils (Bld) [#/Vol] 0.0 10*3/uL Normal 0.0-0.4 [facility] Comment on above: Performed By: #### C BCA, CMP, , 45506-7 ####[facility] ([id number])[address], [address] [place] [address] Eosinophils/100 WBC (Bld) 0.3 % Normal [facility] Comment on above: Performed By: #### C BCA, CMP, , 12213-5 ####[facility] ([id number])[address], [address] [place] [address] Erythrocyte distribution width (RBC) [Ratio] 18.6 % High 11.5-15.0 [facility] Comment on above: Performed By: #### C BCA, CMP, , 84513-7 ####[facility] ([id number])[address], [address] [address] Hematocrit (Bld) [Volume fraction] 25.4 % Low 35-47 [facility] Comment on above: Performed By: #### C BCA, CMP, , 85675-3 ####[facility] ([id number])[address], [address], [place] [address] Hemoglobin (Bld) [Mass/Vol] 8.2 g/dL Low 11.7-15.5 [facility] Comment on above: Performed By: #### C BCA, CMP, , 76884-4 ####[facility] ([id number])[address] [address], [place] [address] Lymphocytes (Bld) [#/Vol] 0.8 10*3/uL Low 1.0-3.5 [facility] Comment on above: Performed By: #### C BCA, CMP, , 38930-5 ####[facility] ([id number])[address] [address] [place] [address] Lymphocytes/100 WBC (Bld) 6.0 % Normal [facility] Comment on above: Performed By: #### C BCA, CMP, , 93019-8 ####[facility] ([id number])[address], [address] [address] MCH (RBC) [Entitic mass] 29.1 pg Normal 27-34 [facility] Comment on above: Performed By: #### C BCA, CMP, , 40561-5 ####[facility] ([id number])[address] [address], [place] [address] MCHC (RBC) [Mass/Vol] 32.2 g/dL Normal 32-36 [facility] Comment on above: Performed By: #### C BCA, CMP, , 43179-3 ####[facility] ([id number])[address], [address] [address] MCV (RBC) [Entitic vol] 90 fL Normal 80-100 [facility] Comment on above: Performed By: #### C BCA, CMP, 61621-9, 95074-5 ####[facility] ([id number])[address] [address] Monocytes (Bld) [#/Vol] 0.3 10*3/uL Normal 0-0.9 [facility] Comment on above: Performed By: #### C BCA, CMP, , 27863-5 ####[facility] ([id number])[address], [address], [place] [address] Monocytes/100 WBC (Bld) 2.0 % Normal [facility] Comment on above: Performed By: #### C BCA, CMP, , 64407-4 ####[facility] ([id number])[address], [address], [place] [address] Neutrophils/100 WBC (Bld) 91.4 % Normal [facility] Comment on above: Performed By: #### C BCA, CMP, , 45768-6 ####[facility] ([id number])[address] [address] Platelet mean volume (Bld) [Entitic vol] 9.3 fL Normal 7-12 [facility] Comment on above: Performed By: #### C BCA, CMP, , 69936-4 ####[facility] ([id number])[address], [address], [place] [address] Platelets (Bld) [#/Vol] 176 10*3/uL Normal 150-450 [facility] Comment on above: Performed By: #### C BCA, CMP, , 12793-9 ####[facility] ([id number])[address], [address] [place] [address] RBC COUNT 2.81 X10E12/L Low 3.80-5.20 [facility] Comment on above: Performed By: #### C MONSE, CMP, , 37365-9 ####[facility] ([id number])[address], [address] [place] [address] WBC (Bld) [#/Vol] 13.9 10*3/uL High 4.0-11.0 [facility] Comment on above: Performed By: #### C MONSE, [facility], , 03158-7 ####[facility] ([id number])[address], [address] [place] [address] CBC auto differentialon 11-29 Basophils (Bld) [#/Vol] 0.0 10*3/uL [facility] Basophils/100 WBC (Bld) 0.3 % [facility] Eosinophils (Bld) [#/Vol] 0.0 10*3/uL [facility] Eosinophils/100 WBC (Bld) 0.3 % [facility] Erythrocyte distribution width (RBC) [Ratio] 18.6 % High 11.5 - 15.0 % [facility] Hematocrit (Bld) [Volume fraction] 25.4 % Low 35 - 47 % [facility] Hemoglobin (Bld) [Mass/Vol] 8.2 g/dL Low 11.7 - 15.5 g/dL [facility] Interpretation and review of laboratory results Abnormal [facility] Lymphocytes (Bld) [#/Vol] 0.8 10*3/uL Low [facility] Lymphocytes/100 WBC (Bld) 6.0 % [facility] MCH (RBC) [Entitic mass] 29.1 pg 27 - 34 pg [facility] MCHC (RBC) [Mass/Vol] 32.2 g/dL 32 - 36 g/dL [facility] MCV (RBC) [Entitic vol] 90 fL 80 - 100 fL [facility] Monocytes (Bld) [#/Vol] 0.3 10*3/uL [facility] Monocytes/100 WBC (Bld) 2.0 % [facility] Neutrophils (Bld) [#/Vol] 12.7 10*3/uL High [facility] Neutrophils/100 WBC (Bld) 91.4 % [facility] Platelet mean volume (Bld) [Entitic vol] 9.3 fL 7 - 12 fL [facility] Platelets (Bld) [#/Vol] 176 10*3/uL [facility] RBC (Bld) [#/Vol] 2.81 10*6/uL Low [facility] WBC corrected for nucl RBC Auto (Bld) [#/Vol] 13.9 High [facility] COMPREHENSIVE METABOLIC PANE Elver 12-23-2023 Albumin [Mass/Vol] 2.3 g/dL Low 3.2-5.3 [facility] Comment on above: Performed By: #### C BCA, CMP, 96187-9, 42196-1 ####[facility] ([id number])[address], [address] [place] [address] ALP [Catalytic activity/Vol] 261 U/L High 39-130 [facility] Comment on above: Performed By: #### C BCA, CMP, , 87427-3 ####[facility] ([id number])[address], [address] [place] [address] ALT [Catalytic activity/Vol] 23 U/L Normal 0-31 [facility] Comment on above: Performed By: #### C BCA, CMP, , 55421-8 ####[facility] ([id number])[address], [address] [place] [address] Anion gap [Moles/Vol] 9 mmol/L Normal 5-15 [facility] Comment on above: Performed By: #### C BCA, CMP, , 74229-5 ####[facility] ([id number])[address], [address], [place] [address] AST [Catalytic activity/Vol] 33 U/L Normal 0-41 [facility] Comment on above: Performed By: #### C BCA, CMP, , 19285-4 ####[facility] ([id number])[address], [address], [place] [address] Bilirubin [Mass/Vol] 0.5 mg/dL Normal 0.3-1.2 [facility] Comment on above: Performed By: #### C BCA, CMP, , 51880-1 ####[facility] ([id number])[address], [address], [place] [address] Calcium [Mass/Vol] 7.1 mg/dL Low 8.5-10.5 [facility] Comment on above: Performed By: #### C BCA, CMP, , 09743-0 ####[facility] ([id number])[address], [place] [address] Chloride [Moles/Vol] 111 mmol/L High 98-109 [facility] Comment on above: Performed By: #### C BCA, CMP, , 32665-4 ####[facility] ([id number])[address], [address], [place] [address] CO2 [Moles/Vol] 22 mmol/L Normal 22-32 [facility] Comment on above: Performed By: #### C BCA, CMP, , 26045-3 ####[facility] ([id number])[address], [place] [address] Creatinine [Mass/Vol] 1.17 mg/dL High 0.40-1.00 [facility] Comment on above: Result Comment: METH OD TRACEABLE TO IDMS STANDARD Performed By: #### C BCA, CMP, , 62442-5 ####[facility] ([id number])[address] [address], [place] [address] GFR/1.73 sq M.predicted among non-blacks MDRD (S/P/Bld) [Vol rate/Area] 51 mL/min/{1.73_m2} Low >59 [facility] Comment on above: Result Comment: Repo rted eGFR is based on theCKD-EPI 2020 equation that doesnot use a race coefficient. Performed By: #### C BCA, CMP, , 97771-7 ####[facility] ([id number])[address] [address], [place] [address] Glucose [Mass/Vol] 79 mg/dL Normal 65-99 [facility] Comment on above: Performed By: #### C BCA, CMP, , 08872-4 ####[facility] ([id number])[address] [address], [place] [address] Potassium [Moles/Vol] 4.5 mmol/L Normal 3.5-5.0 [facility] Comment on above: Performed By: #### C BCA, CMP, , 33382-2 ####[facility] ([id number])[address] [address] [address] Protein [Mass/Vol] 6.2 g/dL Normal 6.0-8.0 [facility] Comment on above: Performed By: #### C BCA, CMP, , 78240-8 ####[facility] ([id number])[address] [address] [address] Sodium [Moles/Vol] 142 mmol/L Normal 134-146 [facility] Comment on above: Performed By: #### C BCA, CMP, , 22241-8 ####[facility] ([id number])[address], [place] [address] Urea nitrogen [Mass/Vol] 25 mg/dL Normal 5-27 [facility] Comment on above: Performed By: #### C BCA, CMP, 81346-4, 96045-0 ####[facility] ([id number])[address], [place] [address] Comprehensive metabolic pane elver 12-23-2023 Albumin [Mass/Vol] 2.3 g/dL Low 3.2 - 5.3 g/dL [facility] ALP [Catalytic activity/Vol] 261 U/L High 39 - 130 U/L [facility] ALT No additional P-5'-P [Catalytic activity/Vol] 23 U/L 0 - 31 U/L [facility] Anion gap [Moles/Vol] 9 mmol/L 5 - 15 mmol/L [facility] AST [Catalytic activity/Vol] 33 U/L 0 - 41 U/L [facility] Bilirubin [Mass/Vol] 0.5 mg/dL 0.3 - 1.2 mg/dL [facility] Calcium [Mass/Vol] 7.1 mg/dL Low 8.5 - 10. 5 mg/dL [facility] Chloride [Moles/Vol] 111 mmol/L High 98 - 109 mmol/L [facility] CO2 [Moles/Vol] 22 mmol/L 22 - 32 mmol/L [facility] Creatinine [Mass/Vol] 1.17 mg/dL High 0.40 - 1.00 mg/dL [facility] eGFR (CKD-EPI)non-race dependent 51 Low - PINF [facility] Glucose [Mass/Vol] 79 mg/dL 65 - 99 mg/dL [facility] Interpretation and review of laboratory results Abnormal [facility] Potassium [Moles/Vol] 4.5 mmol/L 3.5 - 5.0 mmol/L [facility] Protein [Mass/Vol] 6.2 g/dL 6.0 - 8.0 g/dL [facility] Sodium [Moles/Vol] 142 mmol/L 134 - 146 mmol/L [facility] Urea nitrogen [Mass/Vol] 25 mg/dL 5 - 27 mg/dL [facility] ECG 12 leadon 12-23-2023 TRACEMASTERVUE [facility] FECAL OCCULT BLOODon 024 Hemoglobin.gastroi ntestinal Ql (Stl) Negative Normal NEG [facility] Comment on above: Performed By: #### 2 335-8 ####[facility] ([id number])[address], [address] [place] [address] GLUCOSEon 12-23-2023 Glucose [Mass/Vol] 97 mg/dL Normal 65-99 [facility] Comment on above: Performed By: #### 1 0839-9, 2345-7 ####[facility] ([id number])[address], [address] [place] [address] Glucose Glucometer (BldC) [M ass/Vol]on 12-23-2023 Glucose [Mass/Vol] 104 mg/dL High 65-99 [facility] Glucose [Mass/Vol] 104 mg/dL High 65 - 99 mg/dL [facility] Interpretation and review of laboratory results Abnormal [facility] Glucose [Mass/Vol] 116 mg/dL High 65-99 [facility] Glucose [Mass/Vol] 116 mg/dL High 65 - 99 mg/dL [facility] Interpretation and review of laboratory results Abnormal [facility] Glucose [Mass/Vol] 88 mg/dL Normal 65-99 [facility] Glucose [Mass/Vol] 104 mg/dL High 65-99 [facility] Glucose [Mass/Vol] 88 mg/dL 65 - 99 mg/dL [facility] Glucose [Mass/Vol] 104 mg/dL High 65 - 99 mg/dL [facility] Interpretation and review of laboratory results Abnormal [facility] Glucose [Mass/Vol] 98 mg/dL Normal 65-99 [facility] Glucose [Mass/Vol] 98 mg/dL 65 - 99 mg/dL [facility] Glucose [Mass/Vol] 79 mg/dL Normal 65-99 [facility] Glucose [Mass/Vol] 79 mg/dL 65 - 99 mg/dL [facility] Glucose [Mass/Vol]on 024 [facility] Glucose random or fastingon 12-23-2023 Glucose [Mass/Vol] 97 mg/dL 65 - 99 mg/dL [facility] HGB AND HCTon 12-23-2023 Hematocrit (Bld) [Volume fraction] 24.5 % Low 35-47 [facility] Comment on above: Performed By: #### H H ####[facility] ([id number])[address], [address] [place] [address] Hemoglobin (Bld) [Mass/Vol] 8.1 g/dL Low 11.7-15.5 [facility] Comment on above: Performed By: #### H H ####[facility] ([id number])[address], [address] [place] [address] Hematocrit (Bld) [Volume fraction] 22.5 % Low 35-47 [facility] Comment on above: Performed By: #### H H ####[facility] ([id number])[address], [address] [place] [address] Hemoglobin (Bld) [Mass/Vol] 7.3 g/dL Low 11.7-15.5 [facility] Comment on above: Performed By: #### H H ####[facility] ([id number])[address], [address] [place] [address] Hemoglobin and hematocrit, b loodon 12-23-2023 Hematocrit (Bld) [Volume fraction] 24.5 % Low 35 - 47 % [facility] Hemoglobin (Bld) [Mass/Vol] 8.1 g/dL Low 11.7 - 15.5 g/dL [facility] Interpretation and review of laboratory results Abnormal [facility] Hematocrit (Bld) [Volume fraction] 22.5 % Low 35 - 47 % [facility] Hemoglobin (Bld) [Mass/Vol] 7.3 g/dL Low 11.7 - 15.5 g/dL [facility] Interpretation and review of laboratory results Abnormal [facility] Hemoglobin.gastrointestinal Ql (Stl)on 12-23-2023 [facility] Heparin unfractionated Chrom ogenic method Qn (PPP)on 12-23-2023 ANTI XA UFH 0.31 IU/mL Normal 0.30-0.70 [facility] Comment on above: Result Comment: Opti mal time for testing is 6 hrs post dosageThis test is specific for monitoring patientson UFH, and is not recommended for use withother Anti-Xa medications. Performed By: #### 3 274-8 ####[facility] ([id number])[address], [address] [address] [facility] ANTI XA UFH 0.42 IU/mL Normal 0.30-0.70 [facility] Comment on above: Result Comment: Opti mal time for testing is 6 hrs post dosageThis test is specific for monitoring patientson UFH, and is not recommended for use withother Anti-Xa medications. Performed By: #### 3 274-8 ####[facility] ([id number])[address], [address] [place] [address] [facility] MAGNESIUMon 12-23-2023 Magnesium [Mass/Vol] 1.9 mg/dL Normal 1.8-2.6 [facility] Comment on above: Performed By: #### C BCA, CMP, 84252-2, 65386-5 ####[facility] ([id number])[address], [address] [place] [address] Magnesiumon 12-23-2023 Magnesium [Mass/Vol] 1.9 mg/dL 1.8 - 2.6 mg/dL [facility] No Panel Informationon 12-22 [facility] Occult blood x 1, stoolon Hemoglobin.gastroi ntestinal Ql (Stl) Negative Negative^Yvette guzman [facility] TROPONIN Ion 12-23-2023 Troponin I.cardiac [Mass/Vol] 0.33 ng/mL High 0.00-0.04 [facility] Comment on above: Result Comment: Conc entrations greater than or equalto 0.05 ng/ml are considered elevated.Elevations of Troponin may be due to causesother than myocardial ischemia. Recommendserial Troponin testing be performed. Performed By: #### 1 0839-9, 2345-7 ####[facility] ([id number])[address] [place] [address], [address] [address] Troponin I.cardiac [Mass/Vol] 0.34 ng/mL High 0.00-0.04 [facility] Comment on above: Result Comment: Conc entrations greater than or equalto 0.05 ng/ml are considered elevated.Elevations of Troponin may be due to causesother than myocardial ischemia. Recommendserial Troponin testing be performed. Performed By: #### 1 0839-9 ####[facility] ([id number])[address] [place] [address], [address] [address] Troponin I.cardiac [Mass/Vol] 0.58 ng/mL Critically high 0.00-0.04 [facility] Comment on above: Result Comment: Conc entrations greater than or equalto 0.05 ng/ml are considered elevated.Elevations of Troponin may be due to causesother than myocardial ischemia. Recommendserial Troponin testing be performed. Performed By: #### C BCA, CMP, 66071-1, 82888-4 ####[facility] ([id number])[address] [facility], [address] [place] [address] Troponin Ion 12-23-2023 Troponin I.cardiac [Mass/Vol] 0.33 ng/mL High 0.00 - 0.04 ng/mL [facility] Troponin I.cardiac [Mass/Vol] 0.34 ng/mL High 0.00 - 0.04 ng/mL [facility] Troponin I.cardiac [Mass/Vol] 0.58 ng/mL Critically high 0.00 - 0.04 ng/mL [facility] Troponin I.cardiac [Mass/Vol ]on 12-23-2023 Interpretation and review of laboratory results Abnormal [facility] Interpretation and review of laboratory results Abnormal [facility] Interpretation and review of laboratory results Abnormal [facility] Type and screenon 12-23-2023 ABO O [facility] Rh Nom (Bld) Positive [facility] US.doppler Lower extremity v ein - bilateralon 12-23-2023 PM CARDIOVASCULAR [facility] Radiology Study observation (narrative) [facility].doppler Lower extremity v ein - bilateralOrdered By: Liban Prakash on 12-23-2023 [facility] Work Phone: VENOUS BLOOD GASon RONNIE'S TEST Normal [facility] Comment on above: Performed By: #### V BG ####[facility] ([id number])[address] [place] [address] BASE,DEFICIT 5.0 MMOL/L High 0.0-2.0 [facility] Comment on above: Performed By: #### V BG ####[facility] ([id number])[address] [place] [address] Body temperature 98.6 [degF] Normal 37.0 [facility] Comment on above: Performed By: #### V BG ####[facility] ([id number])[address] [place] [address] HCO3 (Bld) [Moles/Vol] 18.1 mmol/L Low 20.0-24.0 [facility] Comment on above: Performed By: #### V BG ####[facility] ([id number])[address] [place] [address] INSP. O2 CONC. 28 % Normal [facility] Comment on above: Performed By: #### V BG ####[facility] ([id number])[address] [place] [address] Oxygen saturation in Blood 58.0 % Low >80.0 [facility] Comment on above: Performed By: #### V BG ####[facility] ([id number])[address] [place] [address] OXYGEN SOURCE NC Normal [facility] Comment on above: Performed By: #### V BG ####[facility] ([id number])[address] [place] [address] PCO2, VENOUS 26.9 MMHG Low 35-50 [facility] Comment on above: Performed By: #### V BG ####[facility] ([id number])[address] [place] [address] PH, VENOUS 7.437 High 7.320-7.420 [facility] Comment on above: Performed By: #### V BG ####[facility] ([id number])[address] [place] [address] PO2, VENOUS 29 MMHG Low 30-50 [facility] Comment on above: Performed By: #### V BG ####[facility] ([id number])[address] [facility] [place] [address] SAMPLE SITE N/A Normal [facility] Comment on above: Performed By: #### V BG ####[facility] ([id number])[address] [facility] [place] [address] SAMPLE TYPE VENOUS Normal [facility] Comment on above: Performed By: #### V BG ####[facility] ([id number])[address] [facility] [place] [place] [address] XR CHEST 1 VWon 12-23-2023 XR CHEST 1 VW Normal [facility] XR Chest Single viewon 12-22 [facility] Radiology Study observation (narrative) [facility] XR Chest Single viewOrdered By: aYny Vargas on 12-23-2023 [facility] Work Phone: ADD ON Urinalysis (if urine dip already complete)on 12-22-2023 Interpretation and review of laboratory results Abnormal [facility] Mucus Ql (Urine sed) PRESENT Abnormal NONE^NONE [facility] RBC Auto (Urine sed) [#/Area] 3 [facility] WBC Auto (Urine sed) [#/Area] 40 High [facility] APTTon 12-22-2023 aPTT Coag (PPP) [Time] Critically high [facility] BASIC METABOLIC PANELon 11-29 Anion gap [Moles/Vol] 14 mmol/L Normal 7-20 [facility] Comment on above: Performed By: #### L [id number] #### [facility] [address] [place] [address] Calcium [Mass/Vol] 7.7 mg/dL Low 8.6-10.3 [facility] Comment on above: Performed By: #### L [id number] #### [facility] [address] [place] [address] Chloride [Moles/Vol] 103 mmol/L Normal 98-107 [facility] Comment on above: Performed By: #### L [id number] #### [facility] [address] [place] [address] CO2 [Moles/Vol] 24 mmol/L Normal 21-31 [facility] Comment on above: Performed By: #### L [id number] #### [facility] ([facility]) [address] [place] [address] Creatinine [Mass/Vol] 1.33 mg/dL High 0.60-1.20 [facility] Comment on above: Performed By: #### L [id number] #### [facility] ([facility]) [address] [place] [address] GLOMERULAR FILTRATION RATE ML/MIN/1.73 SQ M.PREDICTED 44.1 mL/min/1.73m*2 Low >60.0 [facility] Comment on above: Result Comment: The [facility]???s estimated glomerular filtration rate (eGFR) will no longer include consideration of race in its calculation. The National Kid[employer] Foundation???s eGFR Task Force developed new recommendations for the estimation of the glomerular filtration rate in the [place] They recommend immediate implementation of the new equation refit without the race variable in all laboratories because the calculation does not include race. In addition to not including race in the calculation and reporting, it included diversity in its development, and has acceptable performance characteristics and potential consequences that do not disproportionately affect any one group of individuals. Performed By: #### L [id number] #### [facility] ([facility]) [address] [place] [address] Glucose [Mass/Vol] 113 mg/dL High 70-100 [facility] Comment on above: Performed By: #### L [id number] #### [facility] ([facility]) [address] [place] [address] Potassium [Moles/Vol] 4.4 mmol/L Normal 3.5-5.1 [facility] Comment on above: Performed By: #### L [id number] #### [facility] ([facility]) [address] [place] [address] Sodium [Moles/Vol] 137 mmol/L Normal 136-145 [facility] Comment on above: Performed By: #### L [id number] #### [facility] [address] [place] [address] Urea nitrogen [Mass/Vol] 29 mg/dL High 7-25 [facility] Comment on above: Performed By: #### L [id number] #### [facility] [address] [place] [address] UREA NITROGEN/CREATININ E (MASS RATIO) IN SER/PLAS 21.8 Normal [facility] Comment on above: Performed By: #### L [id number] #### [facility] [address] [place] [address] BASIC METABOLIC PANLon 12-21 Anion gap [Moles/Vol] 13 mmol/L Normal 5-15 [facility] Comment on above: Performed By: #### C BCA, 65083-7, BMP, 3040-3, LIVR, 26443-1, 30919-4, 2276-4 ####[facility] ([id number])[address], [address], [place] [address] Calcium [Mass/Vol] 7.8 mg/dL Low 8.5-10.5 [facility] Comment on above: Performed By: #### C BCA, 76424-7, BMP, 3040-3, LIVR, 64535-4, 02329-6, 2276-4 ####[facility] ([id number])[address], [address], [place] [address] Chloride [Moles/Vol] 105 mmol/L Normal 98-109 [facility] Comment on above: Performed By: #### C BCA, 15653-1, BMP, 3040-3, LIVR, 27960-8, 26705-6, 2276-4 ####[facility] ([id number])[address], [address] [address] CO2 [Moles/Vol] 24 mmol/L Normal 22-32 [facility] Comment on above: Performed By: #### C BCA, 79805-2, BMP, 3040-3, LIVR, 59560-7, 24689-2, 2276-4 ####[facility] ([id number])[address], [address], [place] [address] Creatinine [Mass/Vol] 1.38 mg/dL High 0.40-1.00 [facility] Comment on above: Result Comment: METH OD TRACEABLE TO IDMS STANDARD Performed By: #### C BCA, 72181-4, BMP, 3040-3, LIVR, 25888-8, 14162-8, 2276-4 ####[facility] ([id number])[address], [address] [place] [address] GFR/1.73 sq M.predicted among non-blacks MDRD (S/P/Bld) [Vol rate/Area] 42 mL/min/{1.73_m2} Low >59 [facility] Comment on above: Result Comment: Repo rted eGFR is based on theCKD-EPI 2020 equation that doesnot use a race coefficient. Performed By: #### C BCA, 81426-5, BMP, 3040-3, LIVR, 12955-0, 74046-3, 6-4 ####[facility] ([id number])[address], [address] [place] [address] Glucose [Mass/Vol] 42 mg/dL Critically low 65-99 [facility] Comment on above: Performed By: #### C BCA, 31570-1, BMP, 3040-3, LIVR, 32568-7, 61387-8, 6-4 ####[facility] ([id number])[address], [address], [place] [address] Potassium [Moles/Vol] 4.5 mmol/L Normal 3.5-5.0 [facility] Comment on above: Performed By: #### C BCA, 09133-7, BMP, 3040-3, LIVR, 73310-1, 49130-0, 2276-4 ####[facility] ([id number])[address], [address], [place] [address] Sodium [Moles/Vol] 142 mmol/L Normal 134-146 [facility] Comment on above: Performed By: #### C BCA, 15073-3, BMP, 3040-3, LIVR, 92964-1, 69910-4, 2276-4 ####[facility] ([id number])[address], [address] [place] [address] Urea nitrogen [Mass/Vol] 32 mg/dL High 5-27 [facility] Comment on above: Performed By: #### C BCA, 47757-7, BMP, 3040-3, LIVR, 33220-7, 28152-9, 6-4 ####[facility] ([id number])[address], [address] [place] [address] BLOOD CULTUREon 12-22-2023 Bacteria identified Aer cx Nom (Bld) CULTURE RESULTS NO GROWTH 5 DAYS Normal [facility] Basic Metabolic Panelon 11-29 Anion gap [Moles/Vol] 13 mmol/L 5 - 15 mmol/L [facility] Calcium [Mass/Vol] 7.8 mg/dL Low 8.5 - 10. 5 mg/dL [facility] Chloride [Moles/Vol] 105 mmol/L 98 - 109 mmol/L [facility] CO2 [Moles/Vol] 24 mmol/L 22 - 32 mmol/L [facility] Creatinine [Mass/Vol] 1.38 mg/dL High 0.40 - 1.00 mg/dL [facility] eGFR (CKD-EPI)non-race dependent 42 Low - PINF [facility] Glucose [Mass/Vol] 42 mg/dL Critically low 65 - 99 mg/dL [facility] Interpretation and review of laboratory results Abnormal [facility] Potassium [Moles/Vol] 4.5 mmol/L 3.5 - 5.0 mmol/L [facility] Sodium [Moles/Vol] 142 mmol/L 134 - 146 mmol/L [facility] Urea nitrogen [Mass/Vol] 32 mg/dL High 5 - 27 mg/dL [facility] CBCon 12-22-2023 Erythrocyte distribution width (RBC) [Ratio] 17.2 % High 11.5-15.0 [facility] Comment on above: Performed By: #### L [id number] #### [facility] ([facility]) [address] [place] [address] ERYTHROCYTE MEAN CORPUSCULAR HEMOGLOBIN CONCENTRATION (G/DL) BY AUTOMATED 31.2 g/dL Low 32.0-35.0 [facility] Comment on above: Performed By: #### L [id number] #### [facility] ([facility]) [address] [place] [address] Hematocrit (Bld) [Volume fraction] 26.9 % Low 36.0-48.0 [facility] Comment on above: Performed By: #### L [id number] #### [facility] ([facility]) [address] [place] [address] Hemoglobin (Bld) [Mass/Vol] 8.4 g/dL Low 12.0-15.0 [facility] Comment on above: Performed By: #### L [id number] #### [facility] ([facility]) [address] [place] [address] MCH (RBC) [Entitic mass] 28.9 pg Normal 27.0-33.0 [facility] Comment on above: Performed By: #### L [id number] #### [facility] ([facility]) [address] [place] [address] MCV (RBC) [Entitic vol] 92.4 fL Normal 82.0-98.0 [facility] Comment on above: Performed By: #### L [id number] #### [facility] ([facility]) [address] [place] [address] PLATELETS (10*3/UL) IN BLOOD AUTOMATED COUNT 200 10*3/uL Normal 150-400 [facility] Comment on above: Performed By: #### L [id number] #### [facility] [address] [place] [address] RBC (Bld) [#/Vol] 2.91 10*6/uL Low 3.80-5.00 [facility] Comment on above: Performed By: #### L [id number] #### [facility] ([facility]) [address] [place] [address] WBC (Bld) [#/Vol] 15.86 10*3/uL High 4.00-10.60 [facility] Comment on above: Performed By: #### L [id number] #### [facility] ([facility]) [address] [facility] [place] [address] CBC AND AUTO DIFFon 12-22-19 24 ABSOLUTE BASOPHIL 0.0 X10E9/L Normal 0.0-0.2 [facility] Comment on above: Performed By: #### C BCA, 59747-7, BMP, 3040-3, LIVR, 30318-6, 96242-0, 2275-4 ####[facility] ([id number])[address] [address] ABSOLUTE NEUTROPHIL 12.8 X10E9/L High 1.5-6.6 [facility] Comment on above: Performed By: #### C BCA, 16052-2, BMP, 3040-3, LIVR, 59807-5, 95825-9, 2275-4 ####[facility] ([id number])[address] [address] Basophils/100 WBC (Bld) 0.2 % Normal [facility] Comment on above: Performed By: #### C BCA, 27970-0, BMP, 3040-3, LIVR, 66833-6, 55786-0, 6-4 ####[facility] ([id number])[address], [address] [address] Eosinophils (Bld) [#/Vol] 0.2 10*3/uL Normal 0.0-0.4 [facility] Comment on above: Performed By: #### C BCA, 48878-0, BMP, 3040-3, LIVR, 41649-5, 87418-3, 2276-4 ####[facility] ([id number])[address], [address] [place] [address] Eosinophils/100 WBC (Bld) 1.3 % Normal [facility] Comment on above: Performed By: #### C BCA, 99257-3, BMP, 3040-3, LIVR, 62209-7, 43707-7, 6-4 ####[facility] ([id number])[address], [address] [place] [address] Erythrocyte distribution width (RBC) [Ratio] 18.3 % High 11.5-15.0 [facility] Comment on above: Performed By: #### C BCA, 10809-2, BMP, 3040-3, LIVR, 75583-2, 40282-2, 6-4 ####[facility] ([id number])[address], [address] [place] [address] Hematocrit (Bld) [Volume fraction] 24.3 % Low 35-47 [facility] Comment on above: Performed By: #### C BCA, 11314-7, BMP, 3040-3, LIVR, 26186-6, 09562-3, 6-4 ####[facility] ([id number])[address], [address] [place] [address] Hemoglobin (Bld) [Mass/Vol] 8.1 g/dL Low 11.7-15.5 [facility] Comment on above: Performed By: #### C BCA, 83402-3, BMP, 3040-3, LIVR, 10398-7, 37966-5, 2276-4 ####[facility] ([id number])[address] [address] Lymphocytes (Bld) [#/Vol] 1.5 10*3/uL Normal 1.0-3.5 [facility] Comment on above: Performed By: #### C BCA, 93935-1, BMP, 3040-3, LIVR, 11659-1, 53200-8, 2276-4 ####[facility] ([id number])[address] [address] Lymphocytes/100 WBC (Bld) 9.5 % Normal [facility] Comment on above: Performed By: #### C BCA, 29898-4, BMP, 3040-3, LIVR, 18986-6, 74946-3, 6-4 ####[facility] ([id number])[address] [address] MCH (RBC) [Entitic mass] 29.5 pg Normal 27-34 [facility] Comment on above: Performed By: #### C BCA, 78814-5, BMP, 3040-3, LIVR, 87719-9, 03779-1, 6-4 ####[facility] ([id number])[address] [address] MCHC (RBC) [Mass/Vol] 33.4 g/dL Normal 32-36 [facility] Comment on above: Performed By: #### C BCA, 18560-6, BMP, 3040-3, LIVR, 51317-0, 59302-4, 2276-4 ####[facility] ([id number])[address] [address] MCV (RBC) [Entitic vol] 88 fL Normal 80-100 [facility] Comment on above: Performed By: #### C BCA, 36762-0, BMP, 3040-3, LIVR, 96732-6, 81724-4, 6-4 ####[facility] ([id number])[address] [address] Monocytes (Bld) [#/Vol] 1.3 10*3/uL High 0-0.9 [facility] Comment on above: Performed By: #### C BCA, 79095-8, BMP, 3040-3, LIVR, 57786-2, 16552-5, 2276-4 ####[facility] ([id number])[address], [address] [place] [place] [address] Monocytes/100 WBC (Bld) 8.4 % Normal [facility] Comment on above: Performed By: #### C BCA, 55668-5, BMP, 3040-3, LIVR, 52887-6, 97177-0, 2276-4 ####[facility] ([id number])[address], [address] [place] [address] Neutrophils/100 WBC (Bld) 80.6 % Normal [facility] Comment on above: Performed By: #### C BCA, 91419-5, BMP, 3040-3, LIVR, 33801-7, 32211-9, 2276-4 ####[facility] ([id number])[address], [address] [place] [address] Platelet mean volume (Bld) [Entitic vol] 9.3 fL Normal 7-12 [facility] Comment on above: Performed By: #### C BCA, 49977-8, BMP, 3040-3, LIVR, 79928-6, 24651-1, 2276-4 ####[facility] ([id number])[address], [address] [place] [address], [place] [address] Platelets (Bld) [#/Vol] 197 10*3/uL Normal 150-450 [facility] Comment on above: Performed By: #### C BCA, 45685-1, BMP, 3040-3, LIVR, 24203-2, 85587-3, 2276-4 ####[facility] ([id number])[address], [address], [place] [address] RBC COUNT 2.76 X10E12/L Low 3.80-5.20 [facility] Comment on above: Performed By: #### C BCA, 47511-1, BMP, 3040-3, LIVR, 12233-3, 03339-5, 2276-4 ####[facility] ([id number])[address], [address] [place] [address] WBC (Bld) [#/Vol] 15.9 10*3/uL High 4.0-11.0 [facility] Comment on above: Performed By: #### C BCA, 00387-6, BMP, 3040-3, LIVR, 71480-2, 61920-5, 2276-4 ####[facility] ([id number])[address], [address] [address] CBC auto differentialon 11-29 Basophils (Bld) [#/Vol] 0.0 10*3/uL [facility] Basophils/100 WBC (Bld) 0.2 % [facility] Eosinophils (Bld) [#/Vol] 0.2 10*3/uL [facility] Eosinophils/100 WBC (Bld) 1.3 % [facility] Erythrocyte distribution width (RBC) [Ratio] 18.3 % High 11.5 - 15.0 % [facility] Hematocrit (Bld) [Volume fraction] 24.3 % Low 35 - 47 % [facility] Hemoglobin (Bld) [Mass/Vol] 8.1 g/dL Low 11.7 - 15.5 g/dL [facility] Interpretation and review of laboratory results Abnormal [facility] Lymphocytes (Bld) [#/Vol] 1.5 10*3/uL [facility] Lymphocytes/100 WBC (Bld) 9.5 % [facility] MCH (RBC) [Entitic mass] 29.5 pg 27 - 34 pg [facility] MCHC (RBC) [Mass/Vol] 33.4 g/dL 32 - 36 g/dL [facility] MCV (RBC) [Entitic vol] 88 fL 80 - 100 fL [facility] Monocytes (Bld) [#/Vol] 1.3 10*3/uL High [facility] Monocytes/100 WBC (Bld) 8.4 % [facility] Neutrophils (Bld) [#/Vol] 12.8 10*3/uL High [facility] Neutrophils/100 WBC (Bld) 80.6 % [facility] Platelet mean volume (Bld) [Entitic vol] 9.3 fL 7 - 12 fL [facility] Platelets (Bld) [#/Vol] 197 10*3/uL [facility] RBC (Bld) [#/Vol] 2.76 10*6/uL Low [facility] WBC corrected for nucl RBC Auto (Bld) [#/Vol] 15.[address] [facility] [address] ABDOMEN AND PELVIS W CONT on 12-22-2023 CT ABDOMEN AND PELVIS W CONT Normal [facility] CT Abdomen and Pelvis W cont rast [facility]ative[facility] CT Abdomen and Pelvis W cont rast IVOrdered By: Krystal Crowley on 12-22-2023 [facility] Work Phone: CT CHEST W CONTon 12-22-2023 CT CHEST W CONT Normal [facility] CT Chest limited W contrast Kellee [facility] (narrative) [facility] CT Chest limited W contrast IVOrdered By: Gracie Ontiveros on 12-22-2023 [facility] Work Phone: Creatinine (Bld) [Mass/Vol]o n 12-22-2023 Creatinine [Mass/Vol] 1.4 mg/dL High 0.4-1.0 [facility] Comment on above: Result Comment: METH OD TRACEABLE TO IDMS STANDARD Performed By: #### 3 8483-4 ####[facility] ([id number])[address] [facility] [place] [address] GFR/1.73 sq M.predicted among non-blacks MDRD (S/P/Bld) [Vol rate/Area] 41 mL/min/{1.73_m2} Low >59 [facility] Comment on above: Result Comment: Repo rted eGFR is based on theCKD-EPI 2020 equation that doesnot use a race coefficient. Performed By: #### 3 8483-4 ####[facility] ([id number])[address]141 [place] [address] Creatinine [Mass/Vol] 1.4 mg/dL High 0.4 - 1.0 mg/dL [facility] eGFR (CKD-EPI)non-race dependent 41 Low - PINF [facility] Interpretation and review of laboratory results Abnormal [facility] D-Dimeron 12-22-2023 Fibrin D-dimer DDU (PPP) [Mass/Vol] 7716 High NINF [facility] ECG 12 leadOrdered By: Ap Macario on 12-22-2023 [facility] ER Extra Urineon 12-22-2023 Urine collection device ER EXTRA URINE ORDER IN PROCESS [facility] ESR Photometric method (Bld) [Velocity]on 12-22-2023 ESR, ERYTHROCYTE SEDIMENTATION RATE 20 mm/h Normal 0-30 [facility] Comment on above: Performed By: #### 8 2477-1, 77956-0 ####[facility] ([id number])[address] [facility], [address] [place] [address] [facility] Erythrocyte Sedimentation Ra te (ESR)on 12-22-2023 ESR Photometric method (Bld) [Velocity] 20 mm/h 0 - 30 mm/h [facility] FERRITINon 12-22-2023 Ferritin [Mass/Vol] 211 ng/mL Normal 11-307 [facility] Comment on above: Performed By: #### C BCA, 71640-7, BMP, 3040-3, LIVR, 63361-9, 81037-4, 2276-4 ####[facility] ([id number])[address], [address], [place] [address] Ferritinon 12-22-2023 Ferritin [Mass/Vol] 211 ng/mL 11 - 307 ng/mL [facility] Ferritin [Mass/Vol]on 2023 [facility] Fibrin D-dimer DDU (PPP) [Ma ss/Vol]on 12-22-2023 D DIMER 7716 ng/mL DDU High <255 [facility] Comment on above: Result Comment: Resu lts >=255ng/mL DDU: Results may beindicative of the presence of VTE. The useof the Wells score and further diagnostictests should be considered. Elevated D-Dimerlevels can also be associated with DIC,neoplasm, , trauma and liver disease.Elevated levels of rheumatoid factor may leadto an overestimation of the D-Dimer level. Performed By: #### 4 8066-5, PINR, 11936-9 ####[facility] ([id number])[address], [address] [place] [address] Glucose Glucometer (BldC) [M ass/Vol]on 12-22-2023 Glucose [Mass/Vol] 81 mg/dL Normal 65-99 [facility] Glucose [Mass/Vol] 40 mg/dL Critically low 65-99 [facility] Glucose [Mass/Vol] 81 mg/dL 65 - 99 mg/dL [facility] Glucose [Mass/Vol] 40 mg/dL Critically low 65 - 99 mg/dL [facility] Interpretation and review of laboratory results Abnormal [facility] Glucose [Mass/Vol] 93 mg/dL Normal 65-99 [facility] Glucose [Mass/Vol] 93 mg/dL 65 - 99 mg/dL [facility] HGB A1C (GLYCO-HGB)on 2023 Glucose [Mass/Vol] 148 mg/dL Normal [facility] Comment on above: Performed By: #### 8 2477-1, 52342-3 ####[facility] ([id number])[address] [address] HbA1c (Bld) [Mass fraction] 6.8 % High 4.4-5.6 [facility] Comment on above: Result Comment: NOTE ADA Guidelines Result HgbA1c Normal : less than 5.7 % Prediabetes : 5.7 % to 6.4 % Diabetes : > 6.4 %Use with caution in patients with abnormal hemoglobin variants asthe half-life of red blood cells and in vivo glycation rates areaffected. Performed By: #### 8 2477-1, 94862-7 ####[facility] ([id number])[address] [address] Hemoglobin A1con 12-22-2023 Average glucose Estimated from glycated hemoglobin (Bld) [Mass/Vol] 148 mg/dL [facility] HbA1c (Bld) [Mass fraction] 6.8 % High 4.4 - 5.6 % [facility] Interpretation and review of laboratory results Abnormal [facility] LIPASEon 12-22-2023 Lipase [Catalytic activity/Vol] 135 U/L High 11-82 [facility] Comment on above: Performed By: #### C BCA, 67698-8, BMP, 3040-3, LIVR, 90910-8, 75763-3, 6-4 ####[facility] ([id number])[address] [address] LIVER PANELon 12-22-2023 Albumin [Mass/Vol] 2.6 g/dL Low 3.2-5.3 [facility] Comment on above: Performed By: #### C BCA, 47192-9, BMP, 3040-3, LIVR, 78999-0, 04335-0, 6-4 ####[facility] ([id number])[address], [address], [place] [address] ALP [Catalytic activity/Vol] 313 U/L High 39-130 [facility] Comment on above: Performed By: #### C BCA, 49490-0, BMP, 3040-3, LIVR, 51377-0, 09296-7, 2276-4 ####[facility] ([id number])[address], [address] [address] ALT [Catalytic activity/Vol] 28 U/L Normal 0-31 [facility] Comment on above: Performed By: #### C BCA, 03399-7, BMP, 3040-3, LIVR, 57774-0, 76042-1, 2276-4 ####[facility] ([id number])[address], [address] [address] AST [Catalytic activity/Vol] 36 U/L Normal 0-41 [facility] Comment on above: Performed By: #### C BCA, 12396-9, BMP, 3040-3, LIVR, 52629-0, 48001-7, 2276-4 ####[facility] ([id number])[address], [address] [address] Bilirubin [Mass/Vol] 0.6 mg/dL Normal 0.3-1.2 [facility] Comment on above: Performed By: #### C BCA, 49334-7, BMP, 3040-3, LIVR, 04461-9, 14707-7, 2276-4 ####[facility] ([id number])[address], [address] [address] Bilirubin.direct [Mass/Vol] 0.2 mg/dL Normal 0.0-0.4 [facility] Comment on above: Performed By: #### C BCA, 72299-7, BMP, 3040-3, LIVR, 47666-7, 42246-4, 2276-4 ####[facility] ([id number])[address], [address] [place] [address] Protein [Mass/Vol] 6.5 g/dL Normal 6.0-8.0 [facility] Comment on above: Performed By: #### C BCA, 58794-7, BMP, 3040-3, LIVR, 02228-9, 23423-3, 2276-4 ####[facility] ([id number])[address], [address] [place] [address] Lactate (P stan) [Moles/Vol]o n 12-22-2023 LACTATE W/REFLEX 1.0 mmol/L Normal 0.4-2.0 [facility] Comment on above: Result Comment: Resu lt did not trigger repeat Lactate,re-order if needed. Performed By: #### C BCA, 92819-1, BMP, 3040-3, LIVR, 17322-1, 70904-2, 6-4 ####[facility] ([id number])[address], [address] [place] [address] [facility] Lactate w/ Reflexon 12-22-19 Lactate (P stan) [Moles/Vol] 1.0 mmol/L 0.4 - 2.0 mmol/L [facility] Lipaseon 12-22-2023 Lipase [Catalytic activity/Vol] 135 U/L High 11 - 82 U/L [facility] Liver panelon 12-22-2023 Albumin [Mass/Vol] 2.6 g/dL Low 3.2 - 5.3 g/dL [facility] ALP [Catalytic activity/Vol] 313 U/L High 39 - 130 U/L [facility] ALT No additional P-5'-P [Catalytic activity/Vol] 28 U/L 0 - 31 U/L [facility] AST [Catalytic activity/Vol] 36 U/L 0 - 41 U/L [facility] Bilirubin [Mass/Vol] 0.6 mg/dL 0.3 - 1.2 mg/dL [facility] Bilirubin.direct [Mass/Vol] 0.2 mg/dL 0.0 - 0.4 mg/dL [facility] Protein [Mass/Vol] 6.5 g/dL 6.0 - 8.0 g/dL [facility] MAGNESIUMon 12-22-2023 Magnesium [Mass/Vol] 1.9 mg/dL Normal 1.8-2.6 [facility] Comment on above: Performed By: #### C BCA, 30932-8, BMP, 3040-3, LIVR, 49791-9, 64002-4, 2276-4 ####[facility] ([id number])[address] [facility], [address] [place] [address] Magnesium [Mass/Vol] 1.9 mg/dL Normal 1.9-2.7 [facility] Comment on above: Performed By: #### L [id number] #### [facility] ([facility] [address] [place] [address] MR ABDOMEN WO CONTon 024 MR ABDOMEN WO CONT Normal [facility] Magnesiumon 12-22-2023 Magnesium [Mass/Vol] 1.9 mg/dL 1.8 - 2.6 mg/dL [facility] Magnesium [Mass/Vol]on 12-21 [facility] Natriuretic peptide B [Mass/ Vol]on 12-22-2023 Natriuretic peptide B (Bld) [Mass/Vol] 828 pg/mL High <100.0 [facility] Comment on above: Performed By: #### 8 2477-1, 11497-6 ####[facility] ([id number])[address] [facility], [address] [place] [address] Interpretation and review of laboratory results Abnormal [facility] Natriuretic peptide B (Bld) [Mass/Vol] 828 pg/mL High NINF - 100.0 pg/mL [facility] No Panel Informationon 12-21 Interpretation and review of laboratory results Abnormal [facility] Interpretation and review of laboratory results Abnormal [facility] PHOSPHORUSon 12-22-2023 Magnesium [Mass/Vol] 4.6 mg/dL Normal 2.5-5.0 [facility] Comment on above: Performed By: #### L [id number] #### [facility] (BEAKER) [address] [place] [address] POCT Nursing Urine Macroscop ic UAon 12-22-2023 Bilirubin Ql (U) Negative Negative^Ne gative [facility] Glucose [Mass/Vol] Negative Negative^ Ne gative mg/dL [facility] Hemoglobin Ql (U) Negative Negative^N e gative [facility] Interpretation and review of laboratory results Abnormal [facility] Ketones (U) [Mass/Vol] Negative Negative^Ne gative mg/dL [facility] Leukocyte esterase Test strip Ql (U) Trace Abnormal Negative^Ne gative [facility] Nitrite Ql (U) Negative Negative^Ne gative [facility] pH (U) 7.0 [pH] 5.0 - 8.5 [facility] Protein Ql (U) 100 mg/dL Abnormal Negative^Ne gative [facility] Specific gravity (U) [Rel density] 1.020 1.003 - 1.035 [facility] Urobilinogen Qn (U) 1.0 NINF [facility] PROTIME AND INRon 12-22-2023 INR Coag (PPP) [Relative time] 1.2 {INR} High 0.8-1.1 [facility] Comment on above: Performed By: #### 4 8066-5, RENNY, 88130-5 ####[facility] ([id number])[address], [address] [place] [address] PT Coag (PPP) [Time] 13.8 s High 9.8-13.2 [facility] Comment on above: Performed By: #### 4 8066-5, PINR, 04484-1 ####[facility] ([id number])[address], [address] [place] [address] Protime & INRon 12-22-2023 INR Coag (PPP) [Relative time] 1.2 {INR} High [facility] PT Coag (PPP) [Time] 13.8 s High [facility] SUPERFICIAL WOUND CULTUREon 12-22-2023 Bacteria identified Aer cx Nom (Wound) Susceptible [facility] Comment on above: Performed By: #### 6 32-0 ####[facility] ([id number])[address] [facility], [address] [place] [address] TROPONIN Ion 12-22-2023 Troponin I.cardiac [Mass/Vol] 0.04 ng/mL Normal 0.00-0.04 [facility] Comment on above: Performed By: #### C BCA, 07701-6, BMP, 3040-3, LIVR, 48480-6, 25921-9, 2276-4 ####[facility] ([id number])[address] [facility], [address] [place] [address] Troponin Ion 12-22-2023 Troponin I.cardiac [Mass/Vol] 0.04 ng/mL 0.00 - 0.04 ng/mL [facility] Troponin I.cardiac [Mass/Vol ]on 12-22-2023 [facility] UA (MICROSCOPIC)on 4 MUCOUS PRESENT Abnormal NONE [facility] R.B.CELLS 3 /hpf Normal 0-5 [facility] W.B.CELLS 40 /hpf High 0-5 [facility] URINE CULTUREon 12-22-2023 Bacteria identified Cx Nom (U) Susceptible [facility] Comment on above: Performed By: #### 6 30-4 ####[facility] ([id number])[address] [facility], [address] [place] [address] URN MACROSCOPIC NURon 2023 BILIRUBIN KALNIA Negative Normal NEG [facility] Comment on above: Performed By: #### N UM ####[facility] ([id number])[address] [place] [address] BLOOD/HGB KALINA Negative Normal NEG [facility] Comment on above: Performed By: #### N UM ####[facility] ([id number])[address]141 [place] [address] GLUCOSE KALINA Negative Normal NEG [facility] Comment on above: Performed By: #### N UM ####[facility] ([id number])[address] [place] [address] KETONES KALINA Negative Normal NEG [facility] Comment on above: Performed By: #### N UM ####[facility] ([id number])[address] [place] [address] LEUKOCYTE ESTERASE KALINA Trace Abnormal NEG [facility] Comment on above: Performed By: #### N UM ####[facility] ([id number])[address] [place] [address] NITRITE KALINA Negative Normal NEG [facility] Comment on above: Performed By: #### N UM ####[facility] ([address] [place] [address])2141 [place] [address] PH KALINA 7.0 Normal 5.0-8.5 [facility] Comment on above: Performed By: #### N UM ####[facility] ([address] [place] [address])2141 [place] [address] PROTEIN KALINA 100 mg/dL Abnormal NEG [facility] Comment on above: Performed By: #### N UM ####[facility] ([id number])[address]141 [place] [address] SPECIFIC GRAVITY KALINA 1.020 Normal 1.003-1.035 [facility] Comment on above: Performed By: #### N UM ####[facility] ([id number])[address]141 [place] [address] UROBILINOGEN KALINA 1.0 eu/dL Normal <1.1 [facility] Comment on above: Performed By: #### N UM ####[facility] ([id number])[address]141 [place] [address] US ABDOMEN LMTDon 12-22-2023 US ABDOMEN LMTD Normal [facility] US Abdomen limitedon 024 [facility] (narrative) [facility] Urine collection deviceon ER EXTRA URINES ER EXTRA URINE ORDER IN PROCESS Normal [facility] XR CHEST 1 VWon 12-22-2023 XR CHEST 1 VW Normal [facility] XR Chest Single viewon 12-21 SECTRAPACS [facility] Radiology Study observation (narrative) [facility] XR Chest Single viewOrdered By: Rya oV on 12-22-2023 [facility] Work Phone: aPTT Coag (PPP) [Time]on aPTT Coag (Bld) [Time] s Critically high 26-37 [facility] Comment on above: Performed By: #### 4 8066-5, PINR, 81291-2 ####[facility] ([id number])[address], [address] [place] [address] BASIC METABOLIC PANELon 11-29 Anion gap [Moles/Vol] 16 mmol/L Normal 7-20 [facility] Comment on above: Performed By: #### L [id number] #### [facility] (BEAKER) [address] [place] [address] Calcium [Mass/Vol] 7.2 mg/dL Low 8.6-10.3 [facility] Comment on above: Performed By: #### L [id number] #### [facility] ([facility]ER) [address] [place] [address] Chloride [Moles/Vol] 102 mmol/L Normal 98-107 [facility] Comment on above: Performed By: #### L [id number] #### [facility] [address] [place] [address] CO2 [Moles/Vol] 21 mmol/L Normal 21-31 [facility] Comment on above: Performed By: #### L [id number] #### [facility] ([facility]) [address] [place] [address] Creatinine [Mass/Vol] 1.29 mg/dL High 0.60-1.20 [facility] Comment on above: Performed By: #### L [id number] #### [facility] ([facility]) [address] [place] [address] GLOMERULAR FILTRATION RATE ML/MIN/1.73 SQ M.PREDICTED 45.8 mL/min/1.73m*2 Low >60.0 [facility] Comment on above: Result Comment: The [facility]???s estimated glomerular filtration rate (eGFR) will no longer include consideration of race in its calculation. The National Kidney Foundation???s eGFR Task Force developed new recommendations for the estimation of the glomerular filtration rate in the [place] They recommend immediate implementation of the new equation refit without the race variable in all laboratories because the calculation does not include race. In addition to not including race in the calculation and reporting, it included diversity in its development, and has acceptable performance characteristics and potential consequences that do not disproportionately affect any one group of individuals. Performed By: #### L [id number] #### [facility] ([facility]) [address] [place] [address] Glucose [Mass/Vol] 131 mg/dL High 70-100 [facility] Comment on above: Performed By: #### L [id number] #### [facility] ([facility]) [address] [place] [address] Potassium [Moles/Vol] 4.2 mmol/L Normal 3.5-5.1 [facility] Comment on above: Performed By: #### L [id number] #### [facility] ([facility]) [address] [place] [address] Sodium [Moles/Vol] 135 mmol/L Low 136-145 [facility] Comment on above: Performed By: #### L [id number] #### [facility] [address] [place] [address] Urea nitrogen [Mass/Vol] 30 mg/dL High 7-25 [facility] Comment on above: Performed By: #### L [id number] #### [facility] [address] [place] [address] UREA NITROGEN/CREATININ E (MASS RATIO) IN SER/PLAS 23.3 Normal [facility] Comment on above: Performed By: #### L [id number] #### [facility] ([facility]) [address] [place] [address] CBCon 12-21-2023 Erythrocyte distribution width (RBC) [Ratio] 17.2 % High 11.5-15.0 [facility] Comment on above: Performed By: #### L [id number] #### [facility] ([facility]) [address] [place] [address] ERYTHROCYTE MEAN CORPUSCULAR HEMOGLOBIN CONCENTRATION (G/DL) BY AUTOMATED 31.2 g/dL Low 32.0-35.0 [facility] Comment on above: Performed By: #### L [id number] #### [facility] ([facility]) [address] [place] [address] Hematocrit (Bld) [Volume fraction] 24.7 % Low 36.0-48.0 [facility] Comment on above: Performed By: #### L [id number] #### [facility] [address] [place] [address] Hemoglobin (Bld) [Mass/Vol] 7.7 g/dL Low 12.0-15.0 [facility] Comment on above: Performed By: #### L [id number] #### [facility] ([facility] [address] [place] [address] MCH (RBC) [Entitic mass] 28.8 pg Normal 27.0-33.0 [facility] Comment on above: Performed By: #### L [id number] #### [facility] ([facility] [address], [place] [address] MCV (RBC) [Entitic vol] 92.5 fL Normal 82.0-98.0 [facility] Comment on above: Performed By: #### L [id number] #### [facility] ([facility]) [address] [place] [address] PLATELETS (10*3/UL) IN BLOOD AUTOMATED COUNT 192 10*3/uL Normal 150-400 [facility] Comment on above: Performed By: #### L [id number] #### [facility] ([facility]) [address] [place] [address] RBC (Bld) [#/Vol] 2.67 10*6/uL Low 3.80-5.00 [facility] Comment on above: Performed By: #### L [id number] #### [facility] ([facility]) [address] [place] [address] WBC (Bld) [#/Vol] 17.43 10*3/uL High 4.00-10.60 [facility] Comment on above: Performed By: #### L [id number] #### [facility] ([facility]) [address] [place] [address] MAGNESIUMon 12-21-2023 Magnesium [Mass/Vol] 2.0 mg/dL Normal 1.9-2.7 [facility] Comment on above: Performed By: #### L [id number] #### [facility] ([facility]) [address] [place] [address] PHOSPHORUSon 12-21-2023 Magnesium [Mass/Vol] 4.0 mg/dL Normal 2.5-5.0 [facility] Comment on above: Performed By: #### L [id number] #### [facility] ([facility]) [address] [place] [address] TROPONIN Ion 12-21-2023 Troponin I.cardiac [Mass/Vol] 0.10 ng/mL High 0.00-0.04 [facility] Comment on above: Performed By: #### L [id number] #### [facility] [address] [place] [address] BLOOD CULTUREon 12-20-2023 Bacteria identified Cx Nom (Bld) No growth at 5 days Normal [facility] Comment on above: Performed By: #### L [id number] #### [facility] [address] [place] [address] C-REACTIVE PROTEINon 024 C REACTIVE PROTEIN (MG/L) IN SER/PLAS 283.0 mg/L High 0.0-7.0 [facility] Comment on above: Performed By: #### L [id number] #### [facility] ([facility]) [address] [place] [address] CBCon 12-20-2023 Erythrocyte distribution width (RBC) [Ratio] 17.2 % High 11.5-15.0 [facility] Comment on above: Performed By: #### L [id number] #### [facility] [address] [place] [address] Performed By: #### L [id number] #### [facility] ([facility]) [address] [place] [address] ERYTHROCYTE MEAN CORPUSCULAR HEMOGLOBIN CONCENTRATION (G/DL) BY AUTOMATED 32.5 g/dL Normal 32.0-35.0 [facility] Comment on above: Performed By: #### L [id number] #### [facility] [address] [place] [address] Performed By: #### L [id number] #### [facility] ([facility]) [address] [place] [address] Hematocrit (Bld) [Volume fraction] 24.3 % Low 36.0-48.0 [facility] Comment on above: Performed By: #### L [id number] #### [facility] [address] [place] [address] Performed By: #### L [id number] #### [facility] [address] [place] [address] Hemoglobin (Bld) [Mass/Vol] 7.9 g/dL Low 12.0-15.0 [facility] Comment on above: Performed By: #### L [id number] #### [facility] ([facility]) [address] [place] [address] Performed By: #### L [id number] #### [facility] ([facility]) [address] [place] [address] MCH (RBC) [Entitic mass] 29.7 pg Normal 27.0-33.0 [facility] Comment on above: Performed By: #### L [id number] #### [facility] ([facility]) [address] [place] [address] Performed By: #### L [id number] #### [facility] ([facility]) [address] [place] [address] MCV (RBC) [Entitic vol] 91.4 fL Normal 82.0-98.0 [facility] Comment on above: Performed By: #### L [id number] #### [facility] ([facility]) [address] [place] [address] Performed By: #### L [id number] #### [facility] ([facility]) [address] [place] [address] PLATELETS (10*3/UL) IN BLOOD AUTOMATED COUNT 184 10*3/uL Normal 150-400 [facility] Comment on above: Performed By: #### L [id number] #### [facility] ([facility]) [address] [place] [address] Performed By: #### L [id number] #### [facility] ([facility]) [address] [place] [address] RBC (Bld) [#/Vol] 2.66 10*6/uL Low 3.80-5.00 [facility] Comment on above: Performed By: #### L [id number] #### [facility] ([facility]) [address] [place] [address] Performed By: #### L [id number] #### [facility] ([facility]) [address] [place] [address] WBC (Bld) [#/Vol] 15.81 10*3/uL High 4.00-10.60 [facility] Comment on above: Performed By: #### L [id number] #### [facility] ([facility]) [address] [place] [address] Performed By: #### L [id number] #### [facility] ([facility]) [address] [place] [address] CBC WITH AUTO DIFFERENTIALon 12-20-2023 Basophils (Bld) [#/Vol] 0.03 10*3/uL Normal 0.00-0.20 [facility] Comment on above: Performed By: #### L [id number] #### [facility] ([facility]) [address] [place] [address] Basophils/100 WBC (Bld) 0.2 % Normal 0.0-1.0 [facility] Comment on above: Performed By: #### L [id number] #### [facility] ([facility]) [address] [place] [address] Eosinophils (Bld) [#/Vol] 0.12 10*3/uL Normal 0.00-0.50 [facility] Comment on above: Performed By: #### L [id number] #### [facility] ([facility]) [address] [place] [address] Eosinophils/100 WBC (Bld) 0.8 % Normal 0.0-6.0 [facility] Comment on above: Performed By: #### L [id number] #### [facility] ([facility]) [address] [place] [address] Immature granulocytes (Bld) [#/Vol] 0.18 10*3/uL Normal 0.00-0.20 [facility] Comment on above: Performed By: #### L [id number] #### [facility] ([facility]) [address] [place] [address] Immature granulocytes/100 WBC (Bld) 1.1 % High 0.0-1.0 [facility] Comment on above: Performed By: #### L [id number] #### [facility] [address] [place] [address] Lymphocytes (Bld) [#/Vol] 1.18 10*3/uL Low 1.20-4.00 [facility] Comment on above: Performed By: #### L [id number] #### [facility] [address] [place] [address] Lymphocytes/100 WBC (Bld) 7.5 % Low 20.0-45.0 [facility] Comment on above: Performed By: #### L [id number] #### [facility] [address] [place] [address] Monocytes (Bld) [#/Vol] 1.05 10*3/uL High 0.10-1.00 [facility] Comment on above: Performed By: #### L [id number] #### [facility] [address] [place] [address] Monocytes/100 WBC (Bld) 6.6 % Normal 5.0-12.0 [facility] Comment on above: Performed By: #### L [id number] #### [facility] ([facility]) [address] [place] [address] Neutrophils (Bld) [#/Vol] 13.25 10*3/uL High 1.60-7.60 [facility] Comment on above: Performed By: #### L [id number] #### [facility] ([facility]) [address] [place] [address] Neutrophils/100 WBC (Bld) 83.8 % High 40.0-72.0 [facility] Comment on above: Performed By: #### L [id number] #### [facility] ([facility]) [address] [place] [address] NRBC (PER 100 WBCS) BY AUTOMATED COUNT 0.0 % Normal 0 [facility] Comment on above: Performed By: #### L [id number] #### [facility] ([facility]) [address] [place] [address] COMPREHENSIVE METABOLIC PANE Elver 12-20-2023 Albumin [Mass/Vol] 2.6 g/dL Low 3.5-5.7 [facility] Comment on above: Performed By: #### L [id number] #### [facility] ([facility]) [address] [place] [address] ALP [Catalytic activity/Vol] 234 U/L High 34-104 [facility] Comment on above: Performed By: #### L [id number] #### [facility] ([facility]) [address] [place] [address] ALT [Catalytic activity/Vol] 22 U/L Normal 7-52 [facility] Comment on above: Performed By: #### L [id number] #### [facility] ([facility]) [address] [place] [address] Anion gap [Moles/Vol] 13 mmol/L Normal 7-20 [facility] Comment on above: Performed By: #### L [id number] #### [facility] ([facility]) [address] [place] [address] AST [Catalytic activity/Vol] 23 U/L Normal 13-39 [facility] Comment on above: Performed By: #### L [id number] #### [facility] ([facility]) [address] [place] [address] Bilirubin [Mass/Vol] 0.6 mg/dL Normal 0.3-1.0 [facility] Comment on above: Performed By: #### L [id number] #### [facility] ([facility]) [address] [place] [address] Calcium [Mass/Vol] 7.3 mg/dL Low 8.6-10.3 [facility] Comment on above: Performed By: #### L [id number] #### [facility] [address] [place] [address] Chloride [Moles/Vol] 101 mmol/L Normal 98-107 [facility] Comment on above: Performed By: #### L [id number] #### [facility] [address] [place] [address] CO2 [Moles/Vol] 26 mmol/L Normal 21-31 [facility] Comment on above: Performed By: #### L [id number] #### [facility] ([facility]) [address] [place] [address] Creatinine [Mass/Vol] 1.47 mg/dL High 0.60-1.20 [facility] Comment on above: Performed By: #### L [id number] #### [facility] ([facility]) [address] [place] [address] GLOMERULAR FILTRATION RATE ML/MIN/1.73 SQ M.PREDICTED 39.1 mL/min/1.73m*2 Low >60.0 [facility] Comment on above: Result Comment: The [facility]???s estimated glomerular filtration rate (eGFR) will no longer include consideration of race in its calculation. The National Kidney Foundation???s eGFR Task Force developed new recommendations for the estimation of the glomerular filtration rate in the [place] They recommend immediate implementation of the new equation refit without the race variable in all laboratories because the calculation does not include race. In addition to not including race in the calculation and reporting, it included diversity in its development, and has acceptable performance characteristics and potential consequences that do not disproportionately affect any one group of individuals. Performed By: #### L [id number] #### [facility] ([facility]) [address] [place] [address] Glucose [Mass/Vol] 117 mg/dL High 70-100 [facility] Comment on above: Performed By: #### L [id number] #### [facility] [address] [place] [address] Potassium [Moles/Vol] 4.1 mmol/L Normal 3.5-5.1 [facility] Comment on above: Performed By: #### L [id number] #### [facility] ([facility]) [address] [place] [address] Protein [Mass/Vol] 6.2 g/dL Normal 6.0-8.3 [facility] Comment on above: Performed By: #### L [id number] #### [facility] ([facility]) [address] [place] [address] Sodium [Moles/Vol] 136 mmol/L Normal 136-145 [facility] Comment on above: Performed By: #### L [id number] #### [facility] ([facility]) [address] [place] [address] Urea nitrogen [Mass/Vol] 34 mg/dL High 7-25 [facility] Comment on above: Performed By: #### L [id number] #### [facility] ([facility]) [address] [place] [address] UREA NITROGEN/CREATININ E (MASS RATIO) IN SER/PLAS 23.1 Normal [facility] Comment on above: Performed By: #### L [id number] #### [facility] ([facility]) [address] [place] [address] MAGNESIUMon 12-20-2023 Magnesium [Mass/Vol] 2.0 mg/dL Normal 1.9-2.7 [facility] Comment on above: Performed By: #### L [id number] #### [facility] ([facility]) [address] [place] [address] PHOSPHORUSon 12-20-2023 Magnesium [Mass/Vol] 3.8 mg/dL Normal 2.5-5.0 [facility] Comment on above: Performed By: #### L [id number] #### [facility]) [address] [facility] [place] [address] PREALBUMINon 12-20-2023 Prealbumin [Mass/Vol] 9.0 mg/dL Normal [facility] Comment on above: Performed By: #### L [id number] #### [facility] [address] [facility] [address] PROCALCITONIN TESTon 024 PROCALCITONIN IN BLOOD 0.78 ng/mL High 0.00-0.10 [facility] Comment on above: Result Comment: Susp ected Lower Respiratory Tract Infection: 0.1-0.25 ng/mL - Low likelihood for bacterial infection;Antibiotics discouraged.* >0.25 ng/mL - Increased likelihood bacterial infection;Antibiotics encouraged. ____ Suspected Sepsis: Strongly consider initiating antibiotics in all unstable patients. 0.1-0.5 ng/mL - Low likelihood for sepsis; Antibiotics discouraged.* >0.5 ng/mL - Increased likelihood sepsis; Antibiotics encouraged. >2.0 ng/mL - High risk of sepsis/septic shock; Antibiotics strongly encouraged. *Recommend retesting PCT within 6-12 hours if clinically indicated and initial PCT<0.5ng/mL Performed By: #### L [id number] #### [facility] [address] [place] [address] TRIGLYCERIDESon 12-20-2023 FASTING? Unknown Normal [facility] Comment on above: Performed By: #### L [id number] #### [facility] [address] [place] [address] Magnesium [Mass/Vol] 123 mg/dL Normal 40-149 [facility] Comment on above: Result Comment: TRIG LYCERIDE REFERENCE RANGE: 20 YEARS AND OLDER CARDIOVASCULAR RISK LESS THAN 150 mg/dL LOW RISK 150 TO 199 mg/dL BORDERLINE RISK 200 mg/dL AND GREATER HIGH RISK Performed By: #### L [id number] #### [facility] ([facility]) [address] [place] [address] TROPONIN Ion 12-20-2023 Troponin I.cardiac [Mass/Vol] 0.05 ng/mL High 0.00-0.04 [facility] Comment on above: Performed By: #### L [id number] #### [facility] ([facility]) [address] [place] [address] BASIC METABOLIC PANELon 11-29 Anion gap [Moles/Vol] 13 mmol/L Normal 7-20 [facility] Comment on above: Performed By: #### L [id number] #### [facility] ([facility]) [address] [place] [address] Calcium [Mass/Vol] 6.9 mg/dL Low 8.6-10.3 [facility] Comment on above: Performed By: #### L [id number] #### [facility] ([facility]) [address] [place] [address] Chloride [Moles/Vol] 101 mmol/L Normal 98-107 [facility] Comment on above: Performed By: #### L [id number] #### [facility] [address] [place] [address] CO2 [Moles/Vol] 25 mmol/L Normal 21-31 [facility] Comment on above: Performed By: #### L [id number] #### [facility] ([facility] [address] [place] [address] Creatinine [Mass/Vol] 1.45 mg/dL High 0.60-1.20 [facility] Comment on above: Performed By: #### L [id number] #### [facility] ([facility] [address] [place] [address] GLOMERULAR FILTRATION RATE ML/MIN/1.73 SQ M.PREDICTED 39.8 mL/min/1.73m*2 Low >60.0 [facility] Comment on above: Result Comment: The [facility]???s estimated glomerular filtration rate (eGFR) will no longer include consideration of race in its calculation. The National Kidney Foundation???s eGFR Task Force developed new recommendations for the estimation of the glomerular filtration rate in the [place] They recommend immediate implementation of the new equation refit without the race variable in all laboratories because the calculation does not include race. In addition to not including race in the calculation and reporting, it included diversity in its development, and has acceptable performance characteristics and potential consequences that do not disproportionately affect any one group of individuals. Performed By: #### L [id number] #### [facility] ([facility]) [address] [facility] [place] [address] Glucose [Mass/Vol] 150 mg/dL High 70-100 [facility] Comment on above: Performed By: #### L [id number] #### [facility] ([facility]) [address] [place] [address] Potassium [Moles/Vol] 4.2 mmol/L Normal 3.5-5.1 [facility] Comment on above: Performed By: #### L [id number] #### [facility] ([facility]) [address] [place] [address] Sodium [Moles/Vol] 135 mmol/L Low 136-145 [facility] Comment on above: Performed By: #### L [id number] #### [facility] ([facility]) [address] [facility] [place] [address] Urea nitrogen [Mass/Vol] 37 mg/dL High 7-25 [facility] Comment on above: Performed By: #### L [id number] #### [facility]) [address] [place] [address] UREA NITROGEN/CREATININ E (MASS RATIO) IN SER/PLAS 25.5 Normal [facility] Comment on above: Performed By: #### L [id number] #### [facility] ([facility]) [address] [place] [address] CBCon 12-19-2023 Erythrocyte distribution width (RBC) [Ratio] 17.2 % High 11.5-15.0 [facility] Comment on above: Performed By: #### L [id number] #### [facility] [address] [place] [address] ERYTHROCYTE MEAN CORPUSCULAR HEMOGLOBIN CONCENTRATION (G/DL) BY AUTOMATED 32.1 g/dL Normal 32.0-35.0 [facility] Comment on above: Performed By: #### L [id number] #### [facility] [address] [place] [address] Hematocrit (Bld) [Volume fraction] 24.3 % Low 36.0-48.0 [facility] Comment on above: Performed By: #### L [id number] #### [facility] [address] [place] [address] Hemoglobin (Bld) [Mass/Vol] 7.8 g/dL Low 12.0-15.0 [facility] Comment on above: Performed By: #### L [id number] #### [facility] [address] [place] [address] MCH (RBC) [Entitic mass] 29.2 pg Normal 27.0-33.0 [facility] Comment on above: Performed By: #### L [id number] #### [facility] [address] [place] [address] MCV (RBC) [Entitic vol] 91.0 fL Normal 82.0-98.0 [facility] Comment on above: Performed By: #### L [id number] #### [facility] [address] [place] [address] PLATELETS (10*3/UL) IN BLOOD AUTOMATED COUNT 181 10*3/uL Normal 150-400 [facility] Comment on above: Performed By: #### L [id number] #### [facility] [address] [place] [address] RBC (Bld) [#/Vol] 2.67 10*6/uL Low 3.80-5.00 [facility] Comment on above: Performed By: #### L [id number] #### [facility] ([facility]) [address] [place] [address] WBC (Bld) [#/Vol] 15.15 10*3/uL High 4.00-10.60 [facility] Comment on above: Performed By: #### L [id number] #### [facility] ([facility]) [address] [place] [address] MAGNESIUMon 12-19-2023 Magnesium [Mass/Vol] 2.1 mg/dL Normal 1.9-2.7 [facility] Comment on above: Performed By: #### L [id number] #### [facility] ([facility]) [address] [place] [address] PHOSPHORUSon 12-19-2023 Magnesium [Mass/Vol] 4.0 mg/dL Normal 2.5-5.0 [facility] Comment on above: Performed By: #### L [id number] #### [facility]) [address] [place] [address] URINALYSIS MICROSCOPIC WITH REFLEX CULTUREon 12-19-2023 CASTS IN URINE Present Abnormal None [facility]en [facility] [facility] Comment on above: Performed By: #### L [id number] #### [facility] ([facility]) [address] [place] [address] CRYSTALS IN URINE Present Abnormal None Seen [facility] Comment on above: Performed By: #### L [id number] #### [facility] ([facility] [address] [place] [address] HYALINE CASTS /LPF IN URINE SEDIMENT BY MICROSCOPY 2 /LPF High <1 [facility] Comment on above: Performed By: #### L [id number] #### [facility] [address] [place] [address] MUCUS (#/HPF) IN URINE SEDIMENT Occasional Normal None Seen, Occasional, Few [facility] Comment on above: Performed By: #### L [id number] #### [facility] ([facility]) [address] [place] [address] OTHER MICROSCOPIC ELEMENTS Normal [facility] Comment on above: Performed By: #### L [id number] #### [facility] ([facility]) [address] [place] [address] RBC (#/HPF) IN URINE SEDIMENT 3-5 Abnormal None Seen [facility] Comment on above: Performed By: #### L [id number] #### [facility] ([facility]) [address] [place] [address] SQUAMOUS EPITHELIAL CELLS (#/HPF) IN URINE SEDIMENT Occasional Normal None Seen, Occasional [facility] Comment on above: Performed By: #### L [id number] #### [facility] ([facility]) [address] [place] [address] TRIPLE PHOSPHATE CRYSTALS (#/HPF) IN URINE Few Abnormal None Seen [facility] Comment on above: Performed By: #### L [id number] #### [facility] ([facility]) [address] [place] [address] WBC (LEUKOCYTE) (#/HPF) IN URINE SEDIMENT 51-100 Abnormal None Seen [facility] Comment on above: Performed By: #### L [id number] #### [facility] ([facility]) [address] [place] [address] URINALYSIS WITH REFLEX CULTU REon 12-19-2023 BILIRUBIN, TOTAL PRESENCE IN URINE Negative Normal Negative [facility] Comment on above: Performed By: #### L [id number] #### [facility] ([facility]) [address] [place] [address] Clarity (U) Cloudy Abnormal Clear [facility] Comment on above: Performed By: #### L [id number] #### [facility] ([facility]) [address] [place] [address] Color (U) Yellow Normal Yellow [facility] Comment on above: Performed By: #### L [id number] #### [facility] ([facility] [address] [place] [address] Glucose (U) [Mass/Vol] Negative Normal Negative [facility] Comment on above: Performed By: #### L [id number] #### [facility] ([facility]) [address] [place] [address] HEMOGLOBIN PRESENCE IN URINE Negative Normal Negative [facility] Comment on above: Performed By: #### L [id number] #### [facility] ([facility]) [address] [place] [address] Ketones Ql (U) Negative Normal Negative [facility] Comment on above: Performed By: #### L [id number] #### [facility] ([facility]) [address] [place] [address] LEUKOCYTE ESTERASE PRESENCE IN URINE BY TEST STRIP Large Abnormal Negative [facility] Comment on above: Performed By: #### L [id number] #### [facility] ([facility]) [address] [place] [address] NITRITE PRESENCE IN URINE Negative Normal Negative [facility] Comment on above: Performed By: #### L [id number] #### [facility] ([facility]) [address] [place] [address] pH (U) 8.0 [pH] Normal 5.0-8.0 [facility] Comment on above: Performed By: #### L [id number] #### [facility] ([facility]) [address] [place] [address] Protein (U) [Mass/Vol] 100 mg/dL Abnormal Negative [facility] Comment on above: Performed By: #### L [id number] #### [facility] ([facility]) [address] [place] [address] Specific gravity (U) [Rel density] 1.015 Normal 1.015-1.020 [facility] Comment on above: Performed By: #### L [id number] #### [facility] ([facility]) [address] [place] [address] URINE CULTURE, ROUTINEon Ampicillin [Susc] 1 ug/ml Susceptible [facility] Comment on above: Performed By: #### L [id number] #### [facility] ([facility]) [address] [place] [address] Nitrofurantoin [Susc] <=16 Susceptible [facility] Comment on above: Performed By: #### L [id number] #### [facility] ([facility]) [address] [place] [address] Vancomycin [Susc] 2 ug/ml Susceptible [facility] Comment on above: Performed By: #### L [id number] #### [facility] ([facility]) [address] [place] [address] CBC WITH AUTO DIFFERENTIALon 12-18-2023 Erythrocyte distribution width (RBC) [Ratio] 17.4 % High 11.5-15.0 [facility] Comment on above: Performed By: #### L [id number] #### [facility] ([facility]) [address] [place] [address] ERYTHROCYTE MEAN CORPUSCULAR HEMOGLOBIN CONCENTRATION (G/DL) BY AUTOMATED 31.9 g/dL Low 32.0-35.0 [facility] Comment on above: Performed By: #### L [id number] #### [facility] ([facility]) [address] [place] [address] Hematocrit (Bld) [Volume fraction] 25.4 % Low 36.0-48.0 [facility] Comment on above: Performed By: #### L [id number] #### [facility] ([facility]) [address] [place] [address] Hemoglobin (Bld) [Mass/Vol] 8.1 g/dL Low 12.0-15.0 [facility] Comment on above: Performed By: #### L [id number] #### [facility] ([facility]) [address] [place] [address] MCH (RBC) [Entitic mass] 29.9 pg Normal 27.0-33.0 [facility] Comment on above: Performed By: #### L [id number] #### [facility] ([facility]) [address] [place] [address] MCV (RBC) [Entitic vol] 93.7 fL Normal 82.0-98.0 [facility] Comment on above: Performed By: #### L [id number] #### [facility] ([facility]) [address] [place] [address] NRBC (PER 100 WBCS) BY AUTOMATED COUNT 0.2 % High 0 [facility] Comment on above: Performed By: #### L [id number] #### [facility] ([facility]) [address] [place] [address] PLATELETS (10*3/UL) IN BLOOD AUTOMATED COUNT 179 10*3/uL Normal 150-400 [facility] Comment on above: Performed By: #### L [id number] #### [facility] ([facility]) [address] [place] [address] RBC (Bld) [#/Vol] 2.71 10*6/uL Low 3.80-5.00 [facility] Comment on above: Performed By: #### L [id number] #### [facility] ([facility]) [address] [place] [address] WBC (Bld) [#/Vol] 10.93 10*3/uL High 4.00-10.60 [facility] Comment on above: Performed By: #### L [id number] #### [facility] ([facility] [address] [place] [address] COMPREHENSIVE METABOLIC PANE Elver 12-18-2023 Albumin [Mass/Vol] 2.7 g/dL Low 3.5-5.7 [facility] Comment on above: Performed By: #### L [id number] #### [facility] ([facility]) [address] [place] [address] ALP [Catalytic activity/Vol] 180 U/L High 34-104 [facility] Comment on above: Performed By: #### L [id number] #### [facility] ([facility]) [address] [place] [address] ALT [Catalytic activity/Vol] 16 U/L Normal 7-52 [facility] Comment on above: Performed By: #### L [id number] #### [facility] ([facility]) [address] [place] [address] Anion gap [Moles/Vol] 14 mmol/L Normal 7-20 [facility] Comment on above: Performed By: #### L [id number] #### [facility] ([facility]) [address] [place] [address] AST [Catalytic activity/Vol] 18 U/L Normal 13-39 [facility] Comment on above: Performed By: #### L [id number] #### [facility] [address] [place] [address] Bilirubin [Mass/Vol] 0.6 mg/dL Normal 0.3-1.0 [facility] Comment on above: Performed By: #### L [id number] #### [facility] ([facility]) [address] [place] [address] Calcium [Mass/Vol] 7.5 mg/dL Low 8.6-10.3 [facility] Comment on above: Performed By: #### L [id number] #### [facility] ([facility]) [address] [place] [address] Chloride [Moles/Vol] 101 mmol/L Normal 98-107 [facility] Comment on above: Performed By: #### L [id number] #### [facility] ([facility]) [address] [place] [address] CO2 [Moles/Vol] 25 mmol/L Normal 21-31 [facility] Comment on above: Performed By: #### L [id number] #### [facility] ([facility]) [address] [place] [address] Creatinine [Mass/Vol] 1.51 mg/dL High 0.60-1.20 [facility] Comment on above: Performed By: #### L [id number] #### [facility] ([facility]) [address] [place] [address] GLOMERULAR FILTRATION RATE ML/MIN/1.73 SQ M.PREDICTED 37.9 mL/min/1.73m*2 Low >60.0 [facility] Comment on above: Result Comment: The [facility]???s estimated glomerular filtration rate (eGFR) will no longer include consideration of race in its calculation. The National Kidney Foundation???s eGFR Task Force developed new recommendations for the estimation of the glomerular filtration rate in the [place] They recommend immediate implementation of the new equation refit without the race variable in all laboratories because the calculation does not include race. In addition to not including race in the calculation and reporting, it included diversity in its development, and has acceptable performance characteristics and potential consequences that do not disproportionately affect any one group of individuals. Performed By: #### L [id number] #### [facility] ([facility]) [address] [place] [address] Glucose [Mass/Vol] 178 mg/dL High 70-100 [facility] Comment on above: Performed By: #### L [id number] #### [facility] ([facility]) [address] [place] [address] Potassium [Moles/Vol] 4.1 mmol/L Normal 3.5-5.1 [facility] Comment on above: Performed By: #### L [id number] #### [facility] ([facility]) [address] [place] [address] Protein [Mass/Vol] 6.2 g/dL Normal 6.0-8.3 [facility] Comment on above: Performed By: #### L [id number] #### [facility] ([facility]) [address] [place] [address] Sodium [Moles/Vol] 136 mmol/L Normal 136-145 [facility] Comment on above: Performed By: #### L [id number] #### [facility] ([facility]) [address] [place] [address] Urea nitrogen [Mass/Vol] 39 mg/dL High 7-25 [facility] Comment on above: Performed By: #### L [id number] #### [facility] ([facility]) [address] [place] [address] UREA NITROGEN/CREATININ E (MASS RATIO) IN SER/PLAS 25.8 Normal [facility] Comment on above: Performed By: #### L [id number] #### [facility] ([facility]) [address] [place] [address] MAGNESIUMon 12-18-2023 Magnesium [Mass/Vol] 2.6 mg/dL Normal 1.9-2.7 [facility] Comment on above: Performed By: #### L [id number] #### [facility] ([facility]) [address] [place] [address] MANUAL DIFFERENTIALon 2023 BASOPHILS (10*3/UL) IN BLOOD BY CALCULATION 0.04 10*3/uL Normal 0.00-0.20 [facility] Comment on above: Performed By: #### L [id number] #### [facility] ([facility]) [address] [place] [address] BASOPHILS/100 LEUKOCYTES IN BLOOD BY AUTOMATED COUNT 0.4 % Normal 0.0-1.0 [facility] Comment on above: Performed By: #### L [id number] #### [facility] ([facility]) [address] [place] [address] EOSINOPHILS (10*3/UL) IN BLOOD BY CALCULATION 0.19 10*3/uL Normal 0.00-0.50 [facility] Comment on above: Performed By: #### L [id number] #### [facility] ([facility]) [address] [place] [address] EOSINOPHILS/100 LEUKOCYTES IN BLOOD BY AUTOMATED COUNT 1.7 % Normal 0.0-6.0 [facility] Comment on above: Performed By: #### L [id number] #### [facility] ([facility]) [address] [place] [address] IMMATURE GRANULOCYTES (10*3/UL) IN BLOOD BY CALCULATION 0.11 10*3/uL Normal 0.00-0.20 [facility] Comment on above: Performed By: #### L [id number] #### [facility] ([facility]) [address] [place] [address] IMMATURE GRANULOCYTES/100 LEUKOCYTES IN BLOOD BY AUTOMATED COUNT 1.0 % Normal 0.0-1.0 [facility] Comment on above: Performed By: #### L [id number] #### [facility] ([facility]) [address] [place] [address] LYMPHOCYTES (10*3/UL) IN BLOOD BY CALCULATION 1.25 10*3/uL Normal 1.20-4.00 [facility] Comment on above: Performed By: #### L [id number] #### [facility] ([facility]) [address] [place] [address] LYMPHOCYTES/100 LEUKOCYTES IN BLOOD BY AUTOMATED COUNT 11.4 % Low 20.0-45.0 [facility] Comment on above: Performed By: #### L [id number] #### [facility] ([facility]) [address] [place] [address] MONOCYTES (10*3/UL) IN BLOOD BY CALCUATION 0.95 10*3/uL Normal 0.10-1.00 [facility] Comment on above: Performed By: #### L [id number] #### [facility] ([facility]) [address] [place] [address] MONOCYTES/100 LEUKOCYTES IN BLOOD BY AUTOMATED COUNT 8.7 % Normal 5.0-12.0 [facility] Comment on above: Performed By: #### L [id number] #### [facility] ([facility]) [address] [place] [address] NEUTROPHILS (10*3/UL) IN BLOOD BY CALCULATION 8.4 10*3/uL High 1.6-7.6 [facility] Comment on above: Performed By: #### L [id number] #### [facility] [address] [place] [address] NEUTROPHILS/100 LEUKOCYTES IN BLOOD BY AUTOMATED COUNT 76.8 % High 40.0-72.0 [facility] Comment on above: Performed By: #### L [id number] #### [facility] [address] [place] [address] PHOSPHORUSon 12-18-2023 Magnesium [Mass/Vol] 4.8 mg/dL Normal 2.5-5.0 [facility] Comment on above: Performed By: #### L [id number] #### [facility] ([facility]) [address] [place] [address] BASIC METABOLIC PANELon 11-28 Anion gap [Moles/Vol] 13 mmol/L Normal 7-20 [facility] Comment on above: Performed By: #### L [id number] #### [facility] [address] [place] [address] Calcium [Mass/Vol] 7.8 mg/dL Low 8.6-10.3 [facility] Comment on above: Performed By: #### L [id number] #### [facility]) [address] [place] [address] Chloride [Moles/Vol] 102 mmol/L Normal 98-107 [facility] Comment on above: Performed By: #### L [id number] #### [facility] ([facility] [address] [place] [address] CO2 [Moles/Vol] 28 mmol/L Normal 21-31 [facility] Comment on above: Performed By: #### L [id number] #### [facility] [address] [place] [address] Creatinine [Mass/Vol] 1.62 mg/dL High 0.60-1.20 [facility] Comment on above: Performed By: #### L [id number] #### [facility] [address] [place] [address] GLOMERULAR FILTRATION RATE ML/MIN/1.73 SQ M.PREDICTED 34.8 mL/min/1.73m*2 Low >60.0 [facility] Comment on above: Result Comment: The [facility]???s estimated glomerular filtration rate (eGFR) will no longer include consideration of race in its calculation. The National Kidney Foundation???s eGFR Task Force developed new recommendations for the estimation of the glomerular filtration rate in the [place] They recommend immediate implementation of the new equation refit without the race variable in all laboratories because the calculation does not include race. In addition to not including race in the calculation and reporting, it included diversity in its development, and has acceptable performance characteristics and potential consequences that do not disproportionately affect any one group of individuals. Performed By: #### L [id number] #### [facility] ([facility]) [address] [place] [address] Glucose [Mass/Vol] 120 mg/dL High 70-100 [facility] Comment on above: Performed By: #### L [id number] #### [facility]) [address] [facility] [place] [address] Potassium [Moles/Vol] 4.0 mmol/L Normal 3.5-5.1 [facility] Comment on above: Performed By: #### L [id number] #### [facility] ([facility]) [address] [place] [address] Sodium [Moles/Vol] 139 mmol/L Normal 136-145 [facility] Comment on above: Performed By: #### L [id number] #### [facility] [address] [place] [address] Urea nitrogen [Mass/Vol] 42 mg/dL High 7-25 [facility] Comment on above: Performed By: #### L [id number] #### [facility]) [address] [place] [address] UREA NITROGEN/CREATININ E (MASS RATIO) IN SER/PLAS 25.9 Normal [facility] Comment on above: Performed By: #### L [id number] #### [facility] [address] [place] [address] CBCon 12-17-2023 Erythrocyte distribution width (RBC) [Ratio] 17.7 % High 11.5-15.0 [facility] Comment on above: Performed By: #### L [id number] #### [facility]) [address] [place] [address] ERYTHROCYTE MEAN CORPUSCULAR HEMOGLOBIN CONCENTRATION (G/DL) BY AUTOMATED 31.6 g/dL Low 32.0-35.0 [facility] Comment on above: Performed By: #### L [id number] #### [facility]) [address] [place] [address] Hematocrit (Bld) [Volume fraction] 26.6 % Low 36.0-48.0 [facility] Comment on above: Performed By: #### L [id number] #### [facility]) [address] [place] [address] Hemoglobin (Bld) [Mass/Vol] 8.4 g/dL Low 12.0-15.0 [facility] Comment on above: Performed By: #### L [id number] #### [facility]) [address] [place] [address] MCH (RBC) [Entitic mass] 29.7 pg Normal 27.0-33.0 [facility] Comment on above: Performed By: #### L [id number] #### [facility]) [address] [place] [address] MCV (RBC) [Entitic vol] 94.0 fL Normal 82.0-98.0 [facility] Comment on above: Performed By: #### L [id number] #### [facility] [address] [place] [address] PLATELETS (10*3/UL) IN BLOOD AUTOMATED COUNT 186 10*3/uL Normal 150-400 [facility] Comment on above: Performed By: #### L [id number] #### [facility] [address] [place] [address] RBC (Bld) [#/Vol] 2.83 10*6/uL Low 3.80-5.00 [facility] Comment on above: Performed By: #### L [id number] #### [facility] [address] [place] [address] WBC (Bld) [#/Vol] 10.06 10*3/uL Normal 4.00-10.60 [facility] Comment on above: Performed By: #### L [id number] #### [facility]) [address] [place] [address] MAGNESIUMon 12-17-2023 Magnesium [Mass/Vol] 2.8 mg/dL High 1.9-2.7 [facility] Comment on above: Performed By: #### L [id number] #### [facility] [address] [place] [address] PHOSPHORUSon 12-17-2023 Magnesium [Mass/Vol] 4.7 mg/dL Normal 2.5-5.0 [facility] [facility] Comment on above: Performed By: #### L [id number] #### [facility] ([facility]) [address] [place] [address] CBC WITH AUTO DIFFERENTIALon 12-16-2023 Erythrocyte distribution width (RBC) [Ratio] 17.7 % High 11.5-15.0 [facility] Comment on above: Performed By: #### L [id number] #### [facility] [address] [place] [address] ERYTHROCYTE MEAN CORPUSCULAR HEMOGLOBIN CONCENTRATION (G/DL) BY AUTOMATED 32.1 g/dL Normal 32.0-35.0 [facility] Comment on above: Performed By: #### L [id number] #### [facility] [address] [place] [address] Hematocrit (Bld) [Volume fraction] 29.0 % Low 36.0-48.0 [facility] Comment on above: Performed By: #### L [id number] #### [facility] ([facility]) [address] [place] [address] Hemoglobin (Bld) [Mass/Vol] 9.3 g/dL Low 12.0-15.0 [facility] Comment on above: Performed By: #### L [id number] #### [facility] ([facility]) [address] [place] [address] MCH (RBC) [Entitic mass] 30.4 pg Normal 27.0-33.0 [facility] Comment on above: Performed By: #### L [id number] #### [facility] ([facility]) [address] [place] [address] MCV (RBC) [Entitic vol] 94.8 fL Normal 82.0-98.0 [facility] Comment on above: Performed By: #### L [id number] #### [facility] ([facility]) [address] [place] [address] NRBC (PER 100 WBCS) BY AUTOMATED COUNT 0.0 % Normal 0 [facility] Comment on above: Performed By: #### L [id number] #### [facility] ([facility]) [address] [place] [address] PLATELETS (10*3/UL) IN BLOOD AUTOMATED COUNT 165 10*3/uL Normal 150-400 [facility] Comment on above: Performed By: #### L [id number] #### [facility] ([facility]) [address] [place] [address] RBC (Bld) [#/Vol] 3.06 10*6/uL Low 3.80-5.00 [facility] Comment on above: Performed By: #### L [id number] #### [facility] ([facility]) [address] [place] [address] WBC (Bld) [#/Vol] 8.42 10*3/uL Normal 4.00-10.60 [facility] Comment on above: Performed By: #### L [id number] #### [facility] ([facility]) [address] [place] [address] COMPREHENSIVE METABOLIC PANE Elver 12-16-2023 Albumin [Mass/Vol] 2.9 g/dL Low 3.5-5.7 [facility] Comment on above: Performed By: #### L [id number] #### [facility] ([facility]) [address] [place] [address] ALP [Catalytic activity/Vol] 197 U/L High 34-104 [facility] Comment on above: Performed By: #### L [id number] #### [facility] ([facility]) [address] [place] [address] ALT [Catalytic activity/Vol] 19 U/L Normal 7-52 [facility] Comment on above: Performed By: #### L [id number] #### [facility] ([facility]) [address] [place] [address] Anion gap [Moles/Vol] 16 mmol/L Normal 7-20 [facility] Comment on above: Performed By: #### L [id number] #### [facility] ([facility]) [address] [place] [address] AST [Catalytic activity/Vol] 23 U/L Normal 13-39 [facility] Comment on above: Performed By: #### L [id number] #### [facility] ([facility]) [address] [place] [address] Bilirubin [Mass/Vol] 0.6 mg/dL Normal 0.3-1.0 [facility] Comment on above: Performed By: #### L [id number] #### [facility] ([facility]) [address] [facility] [place] [address] Calcium [Mass/Vol] 8.1 mg/dL Low 8.6-10.3 [facility] Comment on above: Performed By: #### L [id number] #### [facility] ([facility]) [address] [place] [address] Chloride [Moles/Vol] 104 mmol/L Normal 98-107 [facility] Comment on above: Performed By: #### L [id number] #### [facility] ([facility]) [address] [place] [address] CO2 [Moles/Vol] 24 mmol/L Normal 21-31 [facility] Comment on above: Performed By: #### L [id number] #### [facility] ([facility]) [address] [place] [address] Creatinine [Mass/Vol] 1.57 mg/dL High 0.60-1.20 [facility] Comment on above: Performed By: #### L [id number] #### [facility] ([facility]) [address] [place] [address] GLOMERULAR FILTRATION RATE ML/MIN/1.73 SQ M.PREDICTED 36.2 mL/min/1.73m*2 Low >60.0 [facility] Comment on above: Result Comment: The [facility]???s estimated glomerular filtration rate (eGFR) will no longer include consideration of race in its calculation. The National Kidney Foundation???s eGFR Task Force developed new recommendations for the estimation of the glomerular filtration rate in the [place] They recommend immediate implementation of the new equation refit without the race variable in all laboratories because the calculation does not include race. In addition to not including race in the calculation and reporting, it included diversity in its development, and has acceptable performance characteristics and potential consequences that do not disproportionately affect any one group of individuals. Performed By: #### L [id number] #### [facility] ([facility]) [address] [place] [address] Glucose [Mass/Vol] 74 mg/dL Normal 70-100 [facility] Comment on above: Performed By: #### L [id number] #### [facility] ([facility] [address] [place] [address] Potassium [Moles/Vol] 4.2 mmol/L Normal 3.5-5.1 [facility] Comment on above: Performed By: #### L [id number] #### [facility] ([facility]) [address] [place] [address] Protein [Mass/Vol] 6.6 g/dL Normal 6.0-8.3 [facility] Comment on above: Performed By: #### L [id number] #### [facility] ([facility]) [address] [place] [address] Sodium [Moles/Vol] 140 mmol/L Normal 136-145 [facility] Comment on above: Performed By: #### L [id number] #### [facility] ([facility]) [address] [place] [address] Urea nitrogen [Mass/Vol] 46 mg/dL High 7-25 [facility] Comment on above: Performed By: #### L [id number] #### [facility] ([facility]) [address] [facility] [place] [address] UREA NITROGEN/CREATININ E (MASS RATIO) IN SER/PLAS 29.3 Normal [facility] Comment on above: Performed By: #### L [id number] #### [facility] ([facility]) [address] [place] [address] MAGNESIUMon 12-16-2023 Magnesium [Mass/Vol] 2.8 mg/dL High 1.9-2.7 [facility] Comment on above: Performed By: #### L [id number] #### [facility] ([facility]) [address] [place] [address] MANUAL DIFFERENTIALon 2023 BASOPHILS (10*3/UL) IN BLOOD BY CALCULATION 0.03 10*3/uL Normal 0.00-0.20 [facility] Comment on above: Performed By: #### L [id number] #### [facility] ([facility]) [address] [facility] [place] [address] BASOPHILS/100 LEUKOCYTES IN BLOOD BY AUTOMATED COUNT 0.4 % Normal 0.0-1.0 [facility] Comment on above: Performed By: #### L [id number] #### [facility] ([facility]) [address] [place] [address] EOSINOPHILS (10*3/UL) IN BLOOD BY CALCULATION 0.16 10*3/uL Normal 0.00-0.50 [facility] Comment on above: Performed By: #### L [id number] #### [facility] ([facility]) [address] [place] [address] EOSINOPHILS/100 LEUKOCYTES IN BLOOD BY AUTOMATED COUNT 1.9 % Normal 0.0-6.0 [facility] Comment on above: Performed By: #### L [id number] #### [facility] ([facility]) [address] [place] [address] IMMATURE GRANULOCYTES (10*3/UL) IN BLOOD BY CALCULATION 0.10 10*3/uL Normal 0.00-0.20 [facility] Comment on above: Performed By: #### L [id number] #### [facility] ([facility]) [address] [place] [address] IMMATURE GRANULOCYTES/100 LEUKOCYTES IN BLOOD BY AUTOMATED COUNT 1.2 % High 0.0-1.0 [facility] Comment on above: Performed By: #### L [id number] #### [facility] ([facility]) [address] [place] [address] LYMPHOCYTES (10*3/UL) IN BLOOD BY CALCULATION 1.14 10*3/uL Low 1.20-4.00 [facility] Comment on above: Performed By: #### L [id number] #### [facility] ([facility]) [address] [place] [address] LYMPHOCYTES/100 LEUKOCYTES IN BLOOD BY AUTOMATED COUNT 13.5 % Low 20.0-45.0 [facility] Comment on above: Performed By: #### L [id number] #### [facility] ([facility]) [address] [place] [address] MONOCYTES (10*3/UL) IN BLOOD BY CALCUATION 1.07 10*3/uL High 0.10-1.00 [facility] Comment on above: Performed By: #### L [id number] #### [facility] ([facility]) [address] [place] [address] MONOCYTES/100 LEUKOCYTES IN BLOOD BY AUTOMATED COUNT 12.7 % High 5.0-12.0 [facility] Comment on above: Performed By: #### L [id number] #### [facility] ([facility]) [address] [place] [address] NEUTROPHILS (10*3/UL) IN BLOOD BY CALCULATION 5.9 10*3/uL Normal 1.6-7.6 [facility] Comment on above: Performed By: #### L [id number] #### [facility] ([facility]) [address] [place] [address] NEUTROPHILS/100 LEUKOCYTES IN BLOOD BY AUTOMATED COUNT 70.3 % Normal 40.0-72.0 [facility] Comment on above: Performed By: #### L [id number] #### [facility] ([facility]) [address] [place] [address] TOXIC GRANULES PRESENCE IN BLOOD BY LIGHT MICROSCOPY Slight Normal [facility] Comment on above: Performed By: #### L [id number] #### [facility] ([facility]) [address] [place] [address] PHOSPHORUSon 12-16-2023 Magnesium [Mass/Vol] 5.0 mg/dL Normal 2.5-5.0 [facility] Comment on above: Performed By: #### L [id number] #### [facility] ([facility]) [address] [place] [address] BASIC METABOLIC PANELon 11-28 Anion gap [Moles/Vol] 17 mmol/L Normal 7-20 [facility] Comment on above: Performed By: #### L [id number] #### [facility] ([facility]) [address] [place] [address] Calcium [Mass/Vol] 8.2 mg/dL Low 8.6-10.3 [facility] Comment on above: Performed By: #### L [id number] #### [facility] ([facility]) [address] [place] [address] Chloride [Moles/Vol] 101 mmol/L Normal 98-107 [facility] Comment on above: Performed By: #### L [id number] #### [facility] ([facility]) [address] [place] [address] CO2 [Moles/Vol] 24 mmol/L Normal 21-31 [facility] Comment on above: Performed By: #### L [id number] #### [facility] ([facility]) [address] [facility] [place] [address] Creatinine [Mass/Vol] 1.09 mg/dL Normal 0.60-1.20 [facility] Comment on above: Performed By: #### L [id number] #### [facility] ([facility]) [address] [place] [address] GLOMERULAR FILTRATION RATE ML/MIN/1.73 SQ M.PREDICTED 56.0 mL/min/1.73m*2 Low >60.0 [facility] Comment on above: Result Comment: The [facility]???s estimated glomerular filtration rate (eGFR) will no longer include consideration of race in its calculation. The National Kidney Foundation???s eGFR Task Force developed new recommendations for the estimation of the glomerular filtration rate in the [place] They recommend immediate implementation of the new equation refit without the race variable in all laboratories because the calculation does not include race. In addition to not including race in the calculation and reporting, it included diversity in its development, and has acceptable performance characteristics and potential consequences that do not disproportionately affect any one group of individuals. Performed By: #### L [id number] #### [facility] ([facility]) [address] [place] [address] Glucose [Mass/Vol] 101 mg/dL High 70-100 [facility] Comment on above: Performed By: #### L [id number] #### [facility] ([facility]) [address] [place] [address] Potassium [Moles/Vol] 4.3 mmol/L Normal 3.5-5.1 [facility] Comment on above: Performed By: #### L [id number] #### [facility] [address] [place] [address] Sodium [Moles/Vol] 138 mmol/L Normal 136-145 [facility] Comment on above: Performed By: #### L [id number] #### [facility] [address] [place] [address] Urea nitrogen [Mass/Vol] 54 mg/dL High 7-25 [facility] Comment on above: Performed By: #### L [id number] #### [facility] ([facility]) [address] [place] [address] UREA NITROGEN/CREATININ E (MASS RATIO) IN SER/PLAS 49.5 Normal [facility] Comment on above: Performed By: #### L [id number] #### [facility] ([facility]) [address] [place] [address] CBCon 12-15-2023 Erythrocyte distribution width (RBC) [Ratio] 17.9 % High 11.5-15.0 [facility] Comment on above: Performed By: #### L [id number] #### [facility] ([facility]) [address] [place] [address] ERYTHROCYTE MEAN CORPUSCULAR HEMOGLOBIN CONCENTRATION (G/DL) BY AUTOMATED 31.6 g/dL Low 32.0-35.0 [facility] Comment on above: Performed By: #### L [id number] #### [facility]) [address] [place] [address] Hematocrit (Bld) [Volume fraction] 29.7 % Low 36.0-48.0 [facility] Comment on above: Performed By: #### L [id number] #### [facility] [address] [place] [address] Hemoglobin (Bld) [Mass/Vol] 9.4 g/dL Low 12.0-15.0 [facility] Comment on above: Performed By: #### L [id number] #### [facility] [address] [place] [address] MCH (RBC) [Entitic mass] 29.6 pg Normal 27.0-33.0 [facility] Comment on above: Performed By: #### L [id number] #### [facility] ([facility]) [address] [place] [address] MCV (RBC) [Entitic vol] 93.4 fL Normal 82.0-98.0 [facility] Comment on above: Performed By: #### L [id number] #### [facility]) [address] [place] [address] PLATELETS (10*3/UL) IN BLOOD AUTOMATED COUNT 156 10*3/uL Normal 150-400 [facility] Comment on above: Performed By: #### L [id number] #### [facility] ([facility]) [address] [place] [address] RBC (Bld) [#/Vol] 3.18 10*6/uL Low 3.80-5.00 [facility] Comment on above: Performed By: #### L [id number] #### [facility] ([facility]) [address] [place] [address] WBC (Bld) [#/Vol] 10.29 10*3/uL Normal 4.00-10.60 [facility] Comment on above: Performed By: #### L [id number] #### [facility]) [address] [place] [address] MAGNESIUMon 12-15-2023 Magnesium [Mass/Vol] 2.4 mg/dL Normal 1.9-2.7 [facility] Comment on above: Performed By: #### L [id number] #### [facility] [address] [place] [address] PHOSPHORUSon 12-15-2023 Magnesium [Mass/Vol] 5.2 mg/dL High 2.5-5.0 [facility] Comment on above: Performed By: #### L [id number] #### [facility] ([facility] [address] [place] [address] BASIC METABOLIC PANELon 03- Anion gap [Moles/Vol] 16 mmol/L Normal 7-20 [facility] Comment on above: Performed By: #### L [id number] #### [facility] ([facility]) [address] [place] [address] Calcium [Mass/Vol] 8.7 mg/dL Normal 8.6-10.3 [facility] Comment on above: Performed By: #### L [id number] #### [facility]) [address] [place] [address] Chloride [Moles/Vol] 99 mmol/L Normal 98-107 [facility] Comment on above: Performed By: #### L [id number] #### [facility]) [address] [place] [address] CO2 [Moles/Vol] 26 mmol/L Normal 21-31 [facility] Comment on above: Performed By: #### L [id number] #### [facility]) [address] [place] [address] Creatinine [Mass/Vol] 1.65 mg/dL High 0.60-1.20 [facility] Comment on above: Performed By: #### L [id number] #### [facility] [address] [facility] [place] [address] GLOMERULAR FILTRATION RATE ML/MIN/1.73 SQ M.PREDICTED 34.1 mL/min/1.73m*2 Low >60.0 [facility] Comment on above: Result Comment: The [facility]???s estimated glomerular filtration rate (eGFR) will no longer include consideration of race in its calculation. The National Kidney Foundation???s eGFR Task Force developed new recommendations for the estimation of the glomerular filtration rate in the [place] They recommend immediate implementation of the new equation refit without the race variable in all laboratories because the calculation does not include race. In addition to not including race in the calculation and reporting, it included diversity in its development, and has acceptable performance characteristics and potential consequences that do not disproportionately affect any one group of individuals. Performed By: #### L [id number] #### [facility] ([facility]) [address] [place] [address] Glucose [Mass/Vol] 141 mg/dL High 70-100 [facility] Comment on above: Performed By: #### L [id number] #### [facility] ([facility]) [address] [place] [address] Potassium [Moles/Vol] 4.4 mmol/L Normal 3.5-5.1 [facility] Comment on above: Performed By: #### L [id number] #### [facility] ([facility]) [address] [place] [address] Sodium [Moles/Vol] 137 mmol/L Normal 136-145 [facility] Comment on above: Performed By: #### L [id number] #### [facility] ([facility]) [address] [place] [address] Urea nitrogen [Mass/Vol] 62 mg/dL High 7-25 [facility] Comment on above: Performed By: #### L [id number] #### [facility] ([facility]) [address] [place] [address] UREA NITROGEN/CREATININ E (MASS RATIO) IN SER/PLAS 37.6 Normal [facility] Comment on above: Performed By: #### L [id number] #### [facility] ([facility]) [address] [place] [address] CBCon 12-14-2023 Erythrocyte distribution width (RBC) [Ratio] 18.1 % High 11.5-15.0 [facility] Comment on above: Performed By: #### L [id number] #### [facility] ([facility]) [address] [place] [address] ERYTHROCYTE MEAN CORPUSCULAR HEMOGLOBIN CONCENTRATION (G/DL) BY AUTOMATED 31.7 g/dL Low 32.0-35.0 [facility] Comment on above: Performed By: #### L [id number] #### [facility] ([facility]) [address] [place] [address] Hematocrit (Bld) [Volume fraction] 29.3 % Low 36.0-48.0 [facility] Comment on above: Performed By: #### L [id number] #### [facility]) [address] [place] [address] Hemoglobin (Bld) [Mass/Vol] 9.3 g/dL Low 12.0-15.0 [facility] Comment on above: Performed By: #### L [id number] #### [facility] [address] [place] [address] MCH (RBC) [Entitic mass] 29.7 pg Normal 27.0-33.0 [facility] [facility] Comment on above: Performed By: #### L [id number] #### [facility] ([facility]) [address] [place] [address] MCV (RBC) [Entitic vol] 93.6 fL Normal 82.0-98.0 [facility] Comment on above: Performed By: #### L [id number] #### [facility] ([facility]) [address] [place] [address] PLATELETS (10*3/UL) IN BLOOD AUTOMATED COUNT 152 10*3/uL Normal 150-400 [facility] Comment on above: Performed By: #### L [id number] #### [facility] ([facility]) [address] [place] [address] RBC (Bld) [#/Vol] 3.13 10*6/uL Low 3.80-5.00 [facility] Comment on above: Performed By: #### L [id number] #### [facility] [address] [place] [address] WBC (Bld) [#/Vol] 9.06 10*3/uL Normal 4.00-10.60 [facility] Comment on above: Performed By: #### L [id number] #### [facility] ([facility] [address] [place] [address] MAGNESIUMon 12-14-2023 Magnesium [Mass/Vol] 2.4 mg/dL Normal 1.9-2.7 [facility] Comment on above: Performed By: #### L [id number] #### [facility] ([facility] [address] [place] [address] PHOSPHORUSon 12-14-2023 Magnesium [Mass/Vol] 4.4 mg/dL Normal 2.5-5.0 [facility] Comment on above: Performed By: #### L [id number] #### [facility] [address] [place] [address] BASIC METABOLIC PANELon 11-28 Anion gap [Moles/Vol] 15 mmol/L Normal 7-20 [facility] Comment on above: Performed By: #### L [id number] #### [facility] [address] [place] [address] Calcium [Mass/Vol] 8.7 mg/dL Normal 8.6-10.3 [facility] Comment on above: Performed By: #### L [id number] #### [facility] ([facility]) [address] [place] [address] Chloride [Moles/Vol] 99 mmol/L Normal 98-107 [facility] Comment on above: Performed By: #### L [id number] #### [facility] ([facility]) [address] [place] [address] CO2 [Moles/Vol] 26 mmol/L Normal 21-31 [facility] Comment on above: Performed By: #### L [id number] #### [facility] ([facility]) [address] [place] [address] Creatinine [Mass/Vol] 1.65 mg/dL High 0.60-1.20 [facility] Comment on above: Performed By: #### L [id number] #### [facility] ([facility]) [address] [place] [address] GLOMERULAR FILTRATION RATE ML/MIN/1.73 SQ M.PREDICTED 34.1 mL/min/1.73m*2 Low >60.0 [facility] Comment on above: Result Comment: The [facility]???s estimated glomerular filtration rate (eGFR) will no longer include consideration of race in its calculation. The National Kidney Foundation???s eGFR Task Force developed new recommendations for the estimation of the glomerular filtration rate in the [place] They recommend immediate implementation of the new equation refit without the race variable in all laboratories because the calculation does not include race. In addition to not including race in the calculation and reporting, it included diversity in its development, and has acceptable performance characteristics and potential consequences that do not disproportionately affect any one group of individuals. Performed By: #### L [id number] #### [facility] ([facility]) [address] [place] [address] Glucose [Mass/Vol] 170 mg/dL High 70-100 [facility] Comment on above: Performed By: #### L [id number] #### [facility] ([facility]) [address] [place] [address] Potassium [Moles/Vol] 4.6 mmol/L Normal 3.5-5.1 [facility] Comment on above: Performed By: #### L [id number] #### [facility] ([facility]) [address] [place] [address] Sodium [Moles/Vol] 135 mmol/L Low 136-145 [facility] Comment on above: Performed By: #### L [id number] #### [facility] ([facility]) [address] [place] [address] Urea nitrogen [Mass/Vol] 70 mg/dL High 7-25 [facility] Comment on above: Performed By: #### L [id number] #### [facility] ([facility]) [address] [place] [address] UREA NITROGEN/CREATININ E (MASS RATIO) IN SER/PLAS 42.4 Normal [facility] Comment on above: Performed By: #### L [id number] #### [facility] ([facility]) [address] [place] [address] CBC WITH AUTO DIFFERENTIALon 12-13-2023 Erythrocyte distribution width (RBC) [Ratio] 18.5 % High 11.5-15.0 [facility] Comment on above: Performed By: #### L [id number] #### [facility] ([facility]) [address] [place] [address] ERYTHROCYTE MEAN CORPUSCULAR HEMOGLOBIN CONCENTRATION (G/DL) BY AUTOMATED 32.3 g/dL Normal 32.0-35.0 [facility] Comment on above: Performed By: #### L [id number] #### [facility] ([facility]) [address] [place] [address] Hematocrit (Bld) [Volume fraction] 25.7 % Low 36.0-48.0 [facility] Comment on above: Performed By: #### L [id number] #### [facility] ([facility]) [address] [facility] [place] [address] Hemoglobin (Bld) [Mass/Vol] 8.3 g/dL Low 12.0-15.0 [facility] Comment on above: Performed By: #### L [id number] #### [facility] ([facility]) [address] [facility] [place] [address] MCH (RBC) [Entitic mass] 30.9 pg Normal 27.0-33.0 [facility] Comment on above: Performed By: #### L [id number] #### [facility] [address] [facility] [place] [address] MCV (RBC) [Entitic vol] 95.5 fL Normal 82.0-98.0 [facility] Comment on above: Performed By: #### L [id number] #### [facility] [address] [place] [address] NRBC (PER 100 WBCS) BY AUTOMATED COUNT 0.0 % Normal 0 [facility] Comment on above: Performed By: #### L [id number] #### [facility] ([facility]) [address] [place] [address] PLATELETS (10*3/UL) IN BLOOD AUTOMATED COUNT 139 10*3/uL Low 150-400 [facility] Comment on above: Performed By: #### L [id number] #### [facility] ([facility]) [address] [place] [address] RBC (Bld) [#/Vol] 2.69 10*6/uL Low 3.80-5.00 [facility] Comment on above: Performed By: #### L [id number] #### [facility] ([facility]) [address] [place] [address] WBC (Bld) [#/Vol] 9.26 10*3/uL Normal 4.00-10.60 [facility] Comment on above: Performed By: #### L [id number] #### [facility] ([facility]) [address] [place] [address] MAGNESIUMon 12-13-2023 Magnesium [Mass/Vol] 2.3 mg/dL Normal 1.9-2.7 [facility] Comment on above: Performed By: #### L [id number] #### [facility] ([facility]) [address] [place] [address] MANUAL DIFFERENTIALon 2023 BASOPHILS (10*3/UL) IN BLOOD BY CALCULATION 0.04 10*3/uL Normal 0.00-0.20 [facility] Comment on above: Performed By: #### L [id number] #### [facility] ([facility]) [address] [facility] [place] [address] BASOPHILS/100 LEUKOCYTES IN BLOOD BY AUTOMATED COUNT 0.4 % Normal 0.0-1.0 [facility] Comment on above: Performed By: #### L [id number] #### [facility] ([facility]) [address] [place] [address] EOSINOPHILS (10*3/UL) IN BLOOD BY CALCULATION 0.16 10*3/uL Normal 0.00-0.50 [facility] Comment on above: Performed By: #### L [id number] #### [facility] ([facility]) [address] [place] [address] EOSINOPHILS/100 LEUKOCYTES IN BLOOD BY AUTOMATED COUNT 1.7 % Normal 0.0-6.0 [facility] Comment on above: Performed By: #### L [id number] #### [facility] ([facility]) [address] [place] [address] IMMATURE GRANULOCYTES (10*3/UL) IN BLOOD BY CALCULATION 0.02 10*3/uL Normal 0.00-0.20 [facility] Comment on above: Performed By: #### L [id number] #### [facility] ([facility]) [address] [place] [address] IMMATURE GRANULOCYTES/100 LEUKOCYTES IN BLOOD BY AUTOMATED COUNT 0.2 % Normal 0.0-1.0 [facility] Comment on above: Performed By: #### L [id number] #### [facility] ([facility]) [address] [place] [address] LYMPHOCYTES (10*3/UL) IN BLOOD BY CALCULATION 1.33 10*3/uL Normal 1.20-4.00 [facility] Comment on above: Performed By: #### L [id number] #### [facility] ([facility]) [address] [place] [address] LYMPHOCYTES/100 LEUKOCYTES IN BLOOD BY AUTOMATED COUNT 14.4 % Low 20.0-45.0 [facility] Comment on above: Performed By: #### L [id number] #### [facility] ([facility]) [address] [place] [address] MONOCYTES (10*3/UL) IN BLOOD BY CALCUATION 1.17 10*3/uL High 0.10-1.00 [facility] Comment on above: Performed By: #### L [id number] #### [facility] ([facility]) [address] [place] [address] MONOCYTES/100 LEUKOCYTES IN BLOOD BY AUTOMATED COUNT 12.6 % High 5.0-12.0 [facility] Comment on above: Performed By: #### L [id number] #### [facility] ([facility]) [address] [place] [address] NEUTROPHILS (10*3/UL) IN BLOOD BY CALCULATION 6.5 10*3/uL Normal 1.6-7.6 [facility] Comment on above: Performed By: #### L [id number] #### [facility] ([facility]) [address] [place] [address] NEUTROPHILS/100 LEUKOCYTES IN BLOOD BY AUTOMATED COUNT 70.7 % Normal 40.0-72.0 [facility] Comment on above: Performed By: #### L [id number] #### [facility] ([facility]) [address] [facility] [place] [address] PHOSPHORUSon 12-13-2023 Magnesium [Mass/Vol] 3.7 mg/dL Normal 2.5-5.0 [facility] Comment on above: Performed By: #### L [id number] #### [facility] ([facility]) [address] [place] [address] PREALBUMINon 12-13-2023 Prealbumin [Mass/Vol] 12.7 mg/dL Normal [facility] Comment on above: Performed By: #### L [id number] #### [facility] ([facility]) [address] [place] [address] TRIGLYCERIDESon 12-13-2023 FASTING? UNKNOWN Normal [facility] Comment on above: Performed By: #### L [id number] #### [facility] ([facility]) [address] [facility] [address] Magnesium [Mass/Vol] 204 mg/dL High 40-149 [facility] Comment on above: Result Comment: TRIG LYCERIDE REFERENCE RANGE: 20 YEARS AND OLDER CARDIOVASCULAR RISK LESS THAN 150 mg/dL LOW RISK 150 TO 199 mg/dL BORDERLINE RISK 200 mg/dL AND GREATER HIGH RISK Performed By: #### L [id number] #### [facility] [address] [place] [address] BASIC METABOLIC PANELon 03- Anion gap [Moles/Vol] 21 mmol/L High 7-20 [facility] Comment on above: Performed By: #### L [id number] #### [facility] ([facility]) [address] [place] [address] Calcium [Mass/Vol] 9.8 mg/dL Normal 8.6-10.3 [facility] Comment on above: Performed By: #### L [id number] #### [facility] [address] [place] [address] Chloride [Moles/Vol] 97 mmol/L Low 98-107 [facility] Comment on above: Performed By: #### L [id number] #### [facility] [address] [place] [address] CO2 [Moles/Vol] 23 mmol/L Normal 21-31 [facility] Comment on above: Performed By: #### L [id number] #### [facility] [address] [place] [address] Creatinine [Mass/Vol] 1.85 mg/dL High 0.60-1.20 [facility] Comment on above: Performed By: #### L [id number] #### [facility] [address] [place] [address] GLOMERULAR FILTRATION RATE ML/MIN/1.73 SQ M.PREDICTED 29.7 mL/min/1.73m*2 Low >60.0 [facility] Comment on above: Result Comment: The [facility]???s estimated glomerular filtration rate (eGFR) will no longer include consideration of race in its calculation. The National Kidney Foundation???s eGFR Task Force developed new recommendations for the estimation of the glomerular filtration rate in the [place] They recommend immediate implementation of the new equation refit without the race variable in all laboratories because the calculation does not include race. In addition to not including race in the calculation and reporting, it included diversity in its development, and has acceptable performance characteristics and potential consequences that do not disproportionately affect any one group of individuals. Performed By: #### L [id number] #### [facility] ([facility]) [address] [place] [address] Glucose [Mass/Vol] 207 mg/dL High 70-100 [facility] Comment on above: Performed By: #### L [id number] #### [facility] ([facility]) [address] [place] [address] Potassium [Moles/Vol] 5.5 mmol/L High 3.5-5.1 [facility] Comment on above: Performed By: #### L [id number] #### [facility] ([facility]) [address] [place] [address] Sodium [Moles/Vol] 135 mmol/L Low 136-145 [facility] Comment on above: Performed By: #### L [id number] #### [facility] ([facility]) [address] [place] [address] Urea nitrogen [Mass/Vol] 78 mg/dL High 7-25 [facility] Comment on above: Performed By: #### L [id number] #### [facility] ([facility]) [address] [place] [address] UREA NITROGEN/CREATININ E (MASS RATIO) IN SER/PLAS 42.2 Normal [facility] Comment on above: Performed By: #### L [id number] #### [facility] ([facility]) [address] [place] [address] CBCon 12-12-2023 Erythrocyte distribution width (RBC) [Ratio] 18.8 % High 11.5-15.0 [facility] Comment on above: Performed By: #### L [id number] #### [facility]) [address] [place] [address] ERYTHROCYTE MEAN CORPUSCULAR HEMOGLOBIN CONCENTRATION (G/DL) BY AUTOMATED 32.0 g/dL Normal 32.0-35.0 [facility] Comment on above: Performed By: #### L [id number] #### [facility] ([facility]) [address] [place] [address] Hematocrit (Bld) [Volume fraction] 28.1 % Low 36.0-48.0 [facility] Comment on above: Performed By: #### L [id number] #### [facility] ([facility]) [address] [place] [address] Hemoglobin (Bld) [Mass/Vol] 9.0 g/dL Low 12.0-15.0 [facility] Comment on above: Performed By: #### L [id number] #### [facility] ([facility]) [address] [place] [address] MCH (RBC) [Entitic mass] 30.2 pg Normal 27.0-33.0 [facility] Comment on above: Performed By: #### L [id number] #### [facility] ([facility]) [address] [place] [address] MCV (RBC) [Entitic vol] 94.3 fL Normal 82.0-98.0 [facility] Comment on above: Performed By: #### L [id number] #### [facility]) [address] [place] [address] PLATELETS (10*3/UL) IN BLOOD AUTOMATED COUNT 142 10*3/uL Low 150-400 [facility] Comment on above: Performed By: #### L [id number] #### [facility] ([facility]) [address] [place] [address] RBC (Bld) [#/Vol] 2.98 10*6/uL Low 3.80-5.00 [facility] Comment on above: Performed By: #### L [id number] #### [facility] ([facility]) [address] [place] [address] WBC (Bld) [#/Vol] 11.81 10*3/uL High 4.00-10.60 [facility] Comment on above: Performed By: #### L [id number] #### [facility]) [address] [place] [address] DIGOXIN LEVELon 12-12-2023 DIGOXIN (NG/ML) IN SER/PLAS 1.6 ng/mL Normal 0.7-2 [facility] Comment on above: Performed By: #### L [id number] #### [facility]) [address] [place] [address] MAGNESIUMon 12-12-2023 Magnesium [Mass/Vol] 2.3 mg/dL Normal 1.9-2.7 [facility] Comment on above: Performed By: #### L [id number] #### [facility] ([facility]) [address] [place] [address] PHOSPHORUSon 12-12-2023 Magnesium [Mass/Vol] 2.5 mg/dL Normal 2.5-5.0 [facility] Comment on above: Performed By: #### L [id number] #### [facility]) [address] [place] [address] CBC WITH AUTO DIFFERENTIALon 12-11-2023 Basophils (Bld) [#/Vol] 0.05 10*3/uL Normal 0.00-0.20 [facility] Comment on above: Performed By: #### L [id number] #### [facility]) [address] [place] [address] Basophils/100 WBC (Bld) 0.4 % Normal 0.0-1.0 [facility] Comment on above: Performed By: #### L [id number] #### [facility]) [address] [place] [address] Eosinophils (Bld) [#/Vol] 0.17 10*3/uL Normal 0.00-0.50 [facility] Comment on above: Performed By: #### L [id number] #### [facility] ([facility]) [address] [place] [address] Eosinophils/100 WBC (Bld) 1.4 % Normal 0.0-6.0 [facility] Comment on above: Performed By: #### L [id number] #### [facility]) [address] [place] [address] Erythrocyte distribution width (RBC) [Ratio] 18.6 % High 11.5-15.0 [facility] Comment on above: Performed By: #### L [id number] #### [facility]) [address] [place] [address] ERYTHROCYTE MEAN CORPUSCULAR HEMOGLOBIN CONCENTRATION (G/DL) BY AUTOMATED 31.8 g/dL Low 32.0-35.0 [facility] Comment on above: Performed By: #### L [id number] #### [facility]) [address] [place] [address] Hematocrit (Bld) [Volume fraction] 28.6 % Low 36.0-48.0 [facility] Comment on above: Performed By: #### L [id number] #### [facility]) [address] [place] [address] Hemoglobin (Bld) [Mass/Vol] 9.1 g/dL Low 12.0-15.0 [facility] Comment on above: Performed By: #### L [id number] #### [facility]) [address] [place] [address] Immature granulocytes (Bld) [#/Vol] 0.08 10*3/uL Normal 0.00-0.20 [facility] Comment on above: Performed By: #### L [id number] #### [facility]) [address] [place] [address] Immature granulocytes/100 WBC (Bld) 0.6 % Normal 0.0-1.0 [facility] Comment on above: Performed By: #### L [id number] #### [facility]) [address] [place] [address] Lymphocytes (Bld) [#/Vol] 1.64 10*3/uL Normal 1.20-4.00 [facility] Comment on above: Performed By: #### L [id number] #### [facility] ([facility]) [address] [place] [address] Lymphocytes/100 WBC (Bld) 13.0 % Low 20.0-45.0 [facility] Comment on above: Performed By: #### L [id number] #### [facility] [address] [place] [address] MCH (RBC) [Entitic mass] 29.8 pg Normal 27.0-33.0 [facility] Comment on above: Performed By: #### L [id number] #### [facility] [address] [place] [address] MCV (RBC) [Entitic vol] 93.8 fL Normal 82.0-98.0 [facility] Comment on above: Performed By: #### L [id number] #### [facility] [address] [place] [address] Monocytes (Bld) [#/Vol] 1.46 10*3/uL High 0.10-1.00 [facility] Comment on above: Performed By: #### L [id number] #### [facility] [address] [place] [address] Monocytes/100 WBC (Bld) 11.6 % Normal 5.0-12.0 [facility] Comment on above: Performed By: #### L [id number] #### [facility] [address] [place] [address] Neutrophils (Bld) [#/Vol] 9.17 10*3/uL High 1.60-7.60 [facility] Comment on above: Performed By: #### L [id number] #### [facility] [address] [place] [address] Neutrophils/100 WBC (Bld) 73.0 % High 40.0-72.0 [facility] Comment on above: Performed By: #### L [id number] #### [facility] [address] [place] [address] NRBC (PER 100 WBCS) BY AUTOMATED COUNT 0.2 % High 0 [facility] Comment on above: Performed By: #### L [id number] #### [facility] ([facility]) [address] [place] [place] [address] PLATELETS (10*3/UL) IN BLOOD AUTOMATED COUNT 163 10*3/uL Normal 150-400 [facility] Comment on above: Performed By: #### L [id number] #### [facility] ([facility]) [address] [place] [address] RBC (Bld) [#/Vol] 3.05 10*6/uL Low 3.80-5.00 [facility] Comment on above: Performed By: #### L [id number] #### [facility] ([facility]) [address] [place] [address] WBC (Bld) [#/Vol] 12.57 10*3/uL High 4.00-10.60 [facility] Comment on above: Performed By: #### L [id number] #### [facility] ([facility]) [address] [place] [address] COMPREHENSIVE METABOLIC PANE Elver 12-11-2023 Albumin [Mass/Vol] 3.1 g/dL Low 3.5-5.7 [facility] Comment on above: Performed By: #### L [id number] #### [facility] ([facility]) [address] [place] [address] ALP [Catalytic activity/Vol] 180 U/L High 34-104 [facility] Comment on above: Performed By: #### L [id number] #### [facility] ([facility]) [address] [place] [address] ALT [Catalytic activity/Vol] 28 U/L Normal 7-52 [facility] Comment on above: Performed By: #### L [id number] #### [facility] ([facility]) [address] [place] [address] Anion gap [Moles/Vol] 17 mmol/L Normal 7-20 [facility] Comment on above: Performed By: #### L [id number] #### [facility] ([facility]) [address] [place] [address] AST [Catalytic activity/Vol] 27 U/L Normal 13-39 [facility] Comment on above: Performed By: #### L [id number] #### [facility] ([facility]) [address] [place] [address] Bilirubin [Mass/Vol] 0.5 mg/dL Normal 0.3-1.0 [facility] Comment on above: Performed By: #### L [id number] #### [facility] ([facility]) [address] [place] [address] Calcium [Mass/Vol] 10.0 mg/dL Normal 8.6-10.3 [facility] Comment on above: Performed By: #### L [id number] #### [facility] ([facility]) [address] [place] [address] Chloride [Moles/Vol] 96 mmol/L Low 98-107 [facility] Comment on above: Performed By: #### L [id number] #### [facility] ([facility]) [address] [place] [address] CO2 [Moles/Vol] 28 mmol/L Normal 21-31 [facility] Comment on above: Performed By: #### L [id number] #### [facility] ([facility]) [address] [place] [address] Creatinine [Mass/Vol] 1.63 mg/dL High 0.60-1.20 [facility] Comment on above: Performed By: #### L [id number] #### [facility] ([facility]) [address] [place] [address] GLOMERULAR FILTRATION RATE ML/MIN/1.73 SQ M.PREDICTED 34.6 mL/min/1.73m*2 Low >60.0 [facility] Comment on above: Result Comment: The [facility]???s estimated glomerular filtration rate (eGFR) will no longer include consideration of race in its calculation. The National Kidney Foundation???s eGFR Task Force developed new recommendations for the estimation of the glomerular filtration rate in the [place] They recommend immediate implementation of the new equation refit without the race variable in all laboratories because the calculation does not include race. In addition to not including race in the calculation and reporting, it included diversity in its development, and has acceptable performance characteristics and potential consequences that do not disproportionately affect any one group of individuals. Performed By: #### L [id number] #### [facility] ([facility]) [address] [place] [address] Glucose [Mass/Vol] 159 mg/dL High 70-100 [facility] Comment on above: Performed By: #### L [id number] #### [facility] ([facility]) [address] [place] [address] Potassium [Moles/Vol] 5.0 mmol/L Normal 3.5-5.1 [facility] Comment on above: Performed By: #### L [id number] #### [facility] ([facility]) [address] [place] [address] Protein [Mass/Vol] 6.6 g/dL Normal 6.0-8.3 [facility] Comment on above: Performed By: #### L [id number] #### [facility] ([facility]) [address] [place] [address] Sodium [Moles/Vol] 136 mmol/L Normal 136-145 [facility] Comment on above: Performed By: #### L [id number] #### [facility] [address] [place] [address] Urea nitrogen [Mass/Vol] 71 mg/dL High 7-25 [facility] Comment on above: Performed By: #### L [id number] #### [facility] ([facility]) [address] [place] [address] UREA NITROGEN/CREATININ E (MASS RATIO) IN SER/PLAS 43.6 Normal [facility] Comment on above: Performed By: #### L [id number] #### [facility] [address] [place] [address] MAGNESIUMon 12-11-2023 Magnesium [Mass/Vol] 2.1 mg/dL Normal 1.9-2.7 [facility] Comment on above: Performed By: #### L [id number] #### [facility] [address] [place] [address] PHOSPHORUSon 12-11-2023 Magnesium [Mass/Vol] 1.7 mg/dL Low 2.5-5.0 [facility] Comment on above: Performed By: #### L [id number] #### [facility] ([facility]) [address] [place] [address] CBCon 12-10-2023 Erythrocyte distribution width (RBC) [Ratio] 18.8 % High 11.5-15.0 [facility] Comment on above: Performed By: #### L [id number] #### [facility] [address] [place] [address] ERYTHROCYTE MEAN CORPUSCULAR HEMOGLOBIN CONCENTRATION (G/DL) BY AUTOMATED 32.1 g/dL Normal 32.0-35.0 [facility] Comment on above: Performed By: #### L [id number] #### [facility] [address] [place] [address] Hematocrit (Bld) [Volume fraction] 29.3 % Low 36.0-48.0 [facility] Comment on above: Performed By: #### L [id number] #### [facility] [address] [place] [address] Hemoglobin (Bld) [Mass/Vol] 9.4 g/dL Low 12.0-15.0 [facility] Comment on above: Performed By: #### L [id number] #### [facility] [address] [place] [address] MCH (RBC) [Entitic mass] 30.3 pg Normal 27.0-33.0 [facility] Comment on above: Performed By: #### L [id number] #### [facility] ([facility]) [address] [place] [address] MCV (RBC) [Entitic vol] 94.5 fL Normal 82.0-98.0 [facility] Comment on above: Performed By: #### L [id number] #### [facility] ([facility]) [address] [place] [address] PLATELETS (10*3/UL) IN BLOOD AUTOMATED COUNT 167 10*3/uL Normal 150-400 [facility] Comment on above: Performed By: #### L [id number] #### [facility] ([facility]) [address] [place] [address] RBC (Bld) [#/Vol] 3.10 10*6/uL Low 3.80-5.00 [facility] Comment on above: Performed By: #### L [id number] #### [facility] ([facility]) [address] [place] [address] WBC (Bld) [#/Vol] 11.42 10*3/uL High 4.00-10.60 [facility] Comment on above: Performed By: #### L [id number] #### [facility] ([facility]) [address] [place] [address] COMPREHENSIVE METABOLIC PANE Elver 12-10-2023 Albumin [Mass/Vol] 3.2 g/dL Low 3.5-5.7 [facility] Comment on above: Performed By: #### L [id number] #### [facility] ([facility]) [address] [place] [address] ALP [Catalytic activity/Vol] 178 U/L High 34-104 [facility] Comment on above: Performed By: #### L [id number] #### [facility] [address] [place] [address] ALT [Catalytic activity/Vol] 26 U/L Normal 7-52 [facility] Comment on above: Performed By: #### L [id number] #### [facility] ([facility]) [address] [place] [address] Anion gap [Moles/Vol] 14 mmol/L Normal 7-20 [facility] Comment on above: Performed By: #### L [id number] #### [facility] [address] [place] [address] AST [Catalytic activity/Vol] 26 U/L Normal 13-39 [facility] Comment on above: Performed By: #### L [id number] #### [facility] [address] [place] [address] Bilirubin [Mass/Vol] 0.5 mg/dL Normal 0.3-1.0 [facility] Comment on above: Performed By: #### L [id number] #### [facility] [address] [place] [address] Calcium [Mass/Vol] 10.4 mg/dL High 8.6-10.3 [facility] Comment on above: Performed By: #### L [id number] #### [facility] [address] [place] [address] Chloride [Moles/Vol] 100 mmol/L Normal 98-107 [facility] Comment on above: Performed By: #### L [id number] #### [facility] ([facility]ER) [address] [place] [address] CO2 [Moles/Vol] 27 mmol/L Normal 21-31 [facility] Comment on above: Performed By: #### L [id number] #### [facility] ([facility]) [address] [place] [address] Creatinine [Mass/Vol] 1.49 mg/dL High 0.60-1.20 [facility] Comment on above: Performed By: #### L [id number] #### [facility] ([facility]) [address] [place] [address] GLOMERULAR FILTRATION RATE ML/MIN/1.73 SQ M.PREDICTED 38.5 mL/min/1.73m*2 Low >60.0 [facility] Comment on above: Result Comment: The [facility]???s estimated glomerular filtration rate (eGFR) will no longer include consideration of race in its calculation. The National Kidney Foundation???s eGFR Task Force developed new recommendations for the estimation of the glomerular filtration rate in the [place] They recommend immediate implementation of the new equation refit without the race variable in all laboratories because the calculation does not include race. In addition to not including race in the calculation and reporting, it included diversity in its development, and has acceptable performance characteristics and potential consequences that do not disproportionately affect any one group of individuals. Performed By: #### L [id number] #### [facility] ([facility]) [address] [place] [address] Glucose [Mass/Vol] 197 mg/dL High 70-100 [facility] Comment on above: Performed By: #### L [id number] #### [facility] ([facility]) [address] [place] [address] Potassium [Moles/Vol] 5.1 mmol/L Normal 3.5-5.1 [facility] Comment on above: Performed By: #### L [id number] #### [facility] ([facility]) [address] [place] [address] Protein [Mass/Vol] 6.6 g/dL Normal 6.0-8.3 [facility] Comment on above: Performed By: #### L [id number] #### [facility] ([facility]) [address] [place] [address] Sodium [Moles/Vol] 136 mmol/L Normal 136-145 [facility] Comment on above: Performed By: #### L [id number] #### [facility] ([facility]) [address] [place] [address] Urea nitrogen [Mass/Vol] 73 mg/dL High 7-25 [facility] Comment on above: Performed By: #### L [id number] #### [facility]) [address] [place] [address] UREA NITROGEN/CREATININ E (MASS RATIO) IN SER/PLAS 49.0 Normal [facility] Comment on above: Performed By: #### L [id number] #### [facility] ([facility]) [address] [place] [address] MAGNESIUMon 12-10-2023 Magnesium [Mass/Vol] 2.2 mg/dL Normal 1.9-2.7 [facility] Comment on above: Performed By: #### L [id number] #### [facility] ([facility]) [address] [place] [address] PHOSPHORUSon 12-10-2023 Magnesium [Mass/Vol] 2.4 mg/dL Low 2.5-5.0 [facility] Comment on above: Performed By: #### L [id number] #### [facility] ([facility]) [address] [place] [address] VITAMIN D 25 HYDROXYon 12-09 CALCIDIOL (25 [place] VITAMIN D3) (NG/ML) IN SER/PLAS 14.1 ng/mL Low 30.0-80.0 [facility] Comment on above: Result Comment: >80. 0 Toxicity possible Performed By: #### L [id number] #### [facility] ([facility]) [address] [place] [address] CBC WITH AUTO DIFFERENTIALon 12-09-2023 Basophils (Bld) [#/Vol] 0.04 10*3/uL Normal 0.00-0.20 [facility] Comment on above: Performed By: #### L [id number] #### [facility] ([facility]) [address] [place] [address] Basophils/100 WBC (Bld) 0.4 % Normal 0.0-1.0 [facility] Comment on above: Performed By: #### L [id number] #### [facility]) [address] [place] [address] Eosinophils (Bld) [#/Vol] 0.15 10*3/uL Normal 0.00-0.50 [facility] Comment on above: Performed By: #### L [id number] #### [facility] [address] [place] [address] Eosinophils/100 WBC (Bld) 1.4 % Normal 0.0-6.0 [facility] Comment on above: Performed By: #### L [id number] #### [facility] [address] [place] [address] Erythrocyte distribution width (RBC) [Ratio] 18.4 % High 11.5-15.0 [facility] Comment on above: Performed By: #### L [id number] #### [facility] [address] [place] [address] ERYTHROCYTE MEAN CORPUSCULAR HEMOGLOBIN CONCENTRATION (G/DL) BY AUTOMATED 32.6 g/dL Normal 32.0-35.0 [facility] Comment on above: Performed By: #### L [id number] #### [facility] [address] [place] [address] Hematocrit (Bld) [Volume fraction] 29.1 % Low 36.0-48.0 [facility] Comment on above: Performed By: #### L [id number] #### [facility] [address] [place] [address] Hemoglobin (Bld) [Mass/Vol] 9.5 g/dL Low 12.0-15.0 [facility] Comment on above: Performed By: #### L [id number] #### [facility] [address] [place] [address] Immature granulocytes (Bld) [#/Vol] 0.08 10*3/uL Normal 0.00-0.20 [facility] Comment on above: Performed By: #### L [id number] #### [facility] [address] [place] [address] Immature granulocytes/100 WBC (Bld) 0.7 % Normal 0.0-1.0 [facility] Comment on above: Performed By: #### L [id number] #### [facility]) [address] [place] [address] Lymphocytes (Bld) [#/Vol] 1.49 10*3/uL Normal 1.20-4.00 [facility] Comment on above: Performed By: #### L [id number] #### [facility]) [address] [facility] [place] [address] Lymphocytes/100 WBC (Bld) 14.0 % Low 20.0-45.0 [facility] Comment on above: Performed By: #### L [id number] #### [facility]) [address] [facility] [address] MCH (RBC) [Entitic mass] 30.1 pg Normal 27.0-33.0 [facility] Comment on above: Performed By: #### L [id number] #### [facility]) [address] [place] [address] MCV (RBC) [Entitic vol] 92.1 fL Normal 82.0-98.0 [facility] Comment on above: Performed By: #### L [id number] #### [facility] ([facility]) [address] [place] [address] Monocytes (Bld) [#/Vol] 1.23 10*3/uL High 0.10-1.00 [facility] Comment on above: Performed By: #### L [id number] #### [facility] ([facility]) [address] [place] [address] Monocytes/100 WBC (Bld) 11.5 % Normal 5.0-12.0 [facility] Comment on above: Performed By: #### L [id number] #### [facility] [address] [place] [address] Neutrophils (Bld) [#/Vol] 7.69 10*3/uL High 1.60-7.60 [facility] Comment on above: Performed By: #### L [id number] #### [facility] ([facility]) [address] [place] [address] Neutrophils/100 WBC (Bld) 72.0 % Normal 40.0-72.0 [facility] Comment on above: Performed By: #### L [id number] #### [facility]) [address] [place] [address] NRBC (PER 100 WBCS) BY AUTOMATED COUNT 0.2 % High 0 [facility] Comment on above: Performed By: #### L [id number] #### [facility]) [address] [place] [address] PLATELETS (10*3/UL) IN BLOOD AUTOMATED COUNT 172 10*3/uL Normal 150-400 [facility] Comment on above: Performed By: #### L [id number] #### [facility]) [address] [place] [address] RBC (Bld) [#/Vol] 3.16 10*6/uL Low 3.80-5.00 [facility] Comment on above: Performed By: #### L [id number] #### [facility]) [address] [place] [address] WBC (Bld) [#/Vol] 10.68 10*3/uL High 4.00-10.60 [facility] Comment on above: Performed By: #### L [id number] #### [facility] [address] [place] [address] COMPREHENSIVE METABOLIC PANE Elver 12-09-2023 Albumin [Mass/Vol] 3.2 g/dL Low 3.5-5.7 [facility] Comment on above: Performed By: #### L [id number] #### [facility] [address] [place] [address] ALP [Catalytic activity/Vol] 152 U/L High 34-104 [facility] Comment on above: Performed By: #### L [id number] #### [facility] ([facility] [address] [place] [address] ALT [Catalytic activity/Vol] 28 U/L Normal 7-52 [facility] Comment on above: Performed By: #### L [id number] #### [facility] ([facility] [address] [place] [address] Anion gap [Moles/Vol] 13 mmol/L Normal 7-20 [facility] Comment on above: Performed By: #### L [id number] #### [facility] [address] [place] [address] AST [Catalytic activity/Vol] 27 U/L Normal 13-39 [facility] Comment on above: Performed By: #### L [id number] #### [facility] ([facility]) [address] [place] [address] Bilirubin [Mass/Vol] 0.5 mg/dL Normal 0.3-1.0 [facility] Comment on above: Performed By: #### L [id number] #### [facility] [address] [place] [address] Calcium [Mass/Vol] 10.1 mg/dL Normal 8.6-10.3 [facility] Comment on above: Performed By: #### L [id number] #### [facility] (BEAKER) [address] [place] [address] Chloride [Moles/Vol] 99 mmol/L Normal 98-107 [facility] Comment on above: Performed By: #### L [id number] #### [facility] ([facility]) [address] [place] [address] CO2 [Moles/Vol] 27 mmol/L Normal 21-31 [facility] Comment on above: Performed By: #### L [id number] #### [facility] ([facility]) [address] [place] [address] Creatinine [Mass/Vol] 1.37 mg/dL High 0.60-1.20 [facility] Comment on above: Performed By: #### L [id number] #### [facility]) [address] [place] [address] GLOMERULAR FILTRATION RATE ML/MIN/1.73 SQ M.PREDICTED 42.6 mL/min/1.73m*2 Low >60.0 [facility] Comment on above: Result Comment: [facility] [facility]???s estimated glomerular filtration rate (eGFR) will no longer include consideration of race in its calculation. The National Kidney Foundation???s eGFR Task Force developed new recommendations for the estimation of the glomerular filtration rate in the [place] They recommend immediate implementation of the new equation refit without the race variable in all laboratories because the calculation does not include race. In addition to not including race in the calculation and reporting, it included diversity in its development, and has acceptable performance characteristics and potential consequences that do not disproportionately affect any one group of individuals. Performed By: #### L [id number] #### [facility] ([facility]) [address] [place] [address] Glucose [Mass/Vol] 227 mg/dL High 70-100 [facility] Comment on above: Performed By: #### L [id number] #### [facility] ([facility]) [address] [place] [address] Potassium [Moles/Vol] 4.8 mmol/L Normal 3.5-5.1 [facility] Comment on above: Performed By: #### L [id number] #### [facility] ([facility]) [address] [place] [address] Protein [Mass/Vol] 6.6 g/dL Normal 6.0-8.3 [facility] Comment on above: Performed By: #### L [id number] #### [facility] ([facility]) [address] [facility] [place] [address] Sodium [Moles/Vol] 134 mmol/L Low 136-145 [facility] Comment on above: Performed By: #### L [id number] #### [facility] [address] [place] [address] Urea nitrogen [Mass/Vol] 68 mg/dL High 7- [facility] Comment on above: Performed By: #### L [id number] #### [facility] [address] [place] [address] UREA NITROGEN/CREATININ E (MASS RATIO) IN SER/PLAS 49.6 Normal [facility] Comment on above: Performed By: #### L [id number] #### [facility] ([facility]) [address] [place] [address] MAGNESIUMon 12-09-2023 Magnesium [Mass/Vol] 2.1 mg/dL Normal 1.9-2.7 [facility] Comment on above: Performed By: #### L [id number] #### [facility] ([facility]) [address] [place] [address] PHOSPHORUSon 12-09-2023 PHOSPHATE (MG/DL) IN SER/PLAS <1.0 Low 2.5-5.0 [facility] Comment on above: Performed By: #### L [id number] #### [facility] ([facility]) [address] [place] [address] Telephoneon 12-09-2023 Telephone [phone] Correa 1955 F Date Provider Department Center 12/09/[address] [facility] NEPHRO Comprehensiv No family history on file Normal [facility] BASIC METABOLIC PANELon 11-28 Anion gap [Moles/Vol] 13 mmol/L Normal 7-20 [facility] Comment on above: Performed By: #### L [id number] #### [facility] ([facility]) [address] [place] [address] Calcium [Mass/Vol] 9.0 mg/dL Normal 8.6-10.3 [facility] Comment on above: Performed By: #### L [id number] #### [facility] [address] [place] [address] Chloride [Moles/Vol] 100 mmol/L Normal 98-107 [facility] Comment on above: Performed By: #### L [id number] #### [facility] ([facility]) [address] [place] [address] CO2 [Moles/Vol] 21 mmol/L Normal 21-31 [facility] Comment on above: Performed By: #### L [id number] #### [facility] ([facility]) [address] [place] [address] Creatinine [Mass/Vol] 1.35 mg/dL High 0.60-1.20 [facility] Comment on above: Performed By: #### L [id number] #### [facility] ([facility]) [address] [place] [address] GLOMERULAR FILTRATION RATE ML/MIN/1.73 SQ M.PREDICTED 43.3 mL/min/1.73m*2 Low >60.0 [facility] Comment on above: Result Comment: The [facility]???s estimated glomerular filtration rate (eGFR) will no longer include consideration of race in its calculation. The National Kidney Foundation???s eGFR Task Force developed new recommendations for the estimation of the glomerular filtration rate in the [place] They recommend immediate implementation of the new equation refit without the race variable in all laboratories because the calculation does not include race. In addition to not including race in the calculation and reporting, it included diversity in its development, and has acceptable performance characteristics and potential consequences that do not disproportionately affect any one group of individuals. Performed By: #### L [id number] #### [facility] ([facility]) [address] [place] [address] Glucose [Mass/Vol] 283 mg/dL High 70-100 [facility] Comment on above: Performed By: #### L [id number] #### [facility] ([facility] [address] [place] [address] Potassium [Moles/Vol] 4.4 mmol/L Normal 3.5-5.1 [facility] Comment on above: Performed By: #### L [id number] #### [facility] ([facility] [address] [place] [address] Sodium [Moles/Vol] 130 mmol/L Low 136-145 [facility] Comment on above: Performed By: #### L [id number] #### [facility] ([facility]) [address] [place] [address] Urea nitrogen [Mass/Vol] 70 mg/dL High 7-25 [facility] Comment on above: Performed By: #### L [id number] #### [facility] ([facility]) [address] [place] [address] UREA NITROGEN/CREATININ E (MASS RATIO) IN SER/PLAS 51.9 Normal [facility] Comment on above: Performed By: #### L [id number] #### [facility] ([facility]) [address] [place] [address] CBCon 12-08-2023 Erythrocyte distribution width (RBC) [Ratio] 18.5 % High 11.5-15.0 [facility] Comment on above: Performed By: #### L [id number] #### [facility] ([facility]) [address] [place] [address] ERYTHROCYTE MEAN CORPUSCULAR HEMOGLOBIN CONCENTRATION (G/DL) BY AUTOMATED 33.3 g/dL Normal 32.0-35.0 [facility] Comment on above: Performed By: #### L [id number] #### [facility] ([facility]) [address] [place] [address] Hematocrit (Bld) [Volume fraction] 27.0 % Low 36.0-48.0 [facility] Comment on above: Performed By: #### L [id number] #### [facility] ([facility] [address] [place] [address] Hemoglobin (Bld) [Mass/Vol] 9.0 g/dL Low 12.0-15.0 [facility] Comment on above: Performed By: #### L [id number] #### [facility] ([facility]) [address] [place] [address] MCH (RBC) [Entitic mass] 30.5 pg Normal 27.0-33.0 [facility] Comment on above: Performed By: #### L [id number] #### [facility] ([facility]) [address] [place] [address] MCV (RBC) [Entitic vol] 91.5 fL Normal 82.0-98.0 [facility] Comment on above: Performed By: #### L [id number] #### [facility] ([facility]) [address] [place] [address] PLATELETS (10*3/UL) IN BLOOD AUTOMATED COUNT 173 10*3/uL Normal 150-400 [facility] Comment on above: Performed By: #### L [id number] #### [facility] ([facility]) [address] [place] [address] RBC (Bld) [#/Vol] 2.95 10*6/uL Low 3.80-5.00 [facility] Comment on above: Performed By: #### L [id number] #### [facility] ([facility]) [address] [place] [address] WBC (Bld) [#/Vol] 10.45 10*3/uL Normal 4.00-10.60 [facility] Comment on above: Performed By: #### L [id number] #### [facility] ([facility]) [address] [place] [address] TROPONIN Ion 12-08-2023 Troponin I.cardiac [Mass/Vol] 0.04 ng/mL Normal 0.00-0.04 [facility] Comment on above: Performed By: #### L [id number] #### [facility] ([facility]) [address] [place] [address] Troponin I.cardiac [Mass/Vol] 0.04 ng/mL Normal 0.00-0.04 [facility] Comment on above: Performed By: #### L [id number] #### [facility] ([facility] [address] [place] [address] BASIC METABOLIC PANELon 03-0 Anion gap [Moles/Vol] 14 mmol/L Normal 7-20 [facility] Comment on above: Performed By: #### L [id number] #### [facility] ([facility]) [address] [place] [address] Calcium [Mass/Vol] 9.0 mg/dL Normal 8.6-10.3 [facility] Comment on above: Performed By: #### L [id number] #### [facility] ([facility]) [address] [place] [address] Chloride [Moles/Vol] 103 mmol/L Normal 98-107 [facility] Comment on above: Performed By: #### L [id number] #### [facility] ([facility]) [address] [place] [address] CO2 [Moles/Vol] 20 mmol/L Low 21-31 [facility] Comment on above: Performed By: #### L [id number] #### [facility] ([facility]) [address] [place] [address] Creatinine [Mass/Vol] 1.38 mg/dL High 0.60-1.20 [facility] Comment on above: Performed By: #### L [id number] #### [facility] ([facility]) [address] [place] [address] GLOMERULAR FILTRATION RATE ML/MIN/1.73 SQ M.PREDICTED 42.2 mL/min/1.73m*2 Low >60.0 [facility] Comment on above: Result Comment: The [facility]???s estimated glomerular filtration rate (eGFR) will no longer include consideration of race in its calculation. The National Kidney Foundation???s eGFR Task Force developed new recommendations for the estimation of the glomerular filtration rate in the [place] They recommend immediate implementation of the new equation refit without the race variable in all laboratories because the calculation does not include race. In addition to not including race in the calculation and reporting, it included diversity in its development, and has acceptable performance characteristics and potential consequences that do not disproportionately affect any one group of individuals. Performed By: #### L [id number] #### [facility] ([facility]) [address] [place] [address] Glucose [Mass/Vol] 175 mg/dL High 70-100 [facility] Comment on above: Performed By: #### L [id number] #### [facility] ([facility]) [address] [place] [address] Potassium [Moles/Vol] 4.2 mmol/L Normal 3.5-5.1 [facility] Comment on above: Performed By: #### L [id number] #### [facility] ([facility]) [address] [place] [address] Sodium [Moles/Vol] 133 mmol/L Low 136-145 [facility] Comment on above: Performed By: #### L [id number] #### [facility] ([facility]) [address] [place] [address] Urea nitrogen [Mass/Vol] 70 mg/dL High 7-25 [facility] Comment on above: Performed By: #### L [id number] #### [facility] ([facility]) [address] [place] [address] UREA NITROGEN/CREATININ E (MASS RATIO) IN SER/PLAS 50.7 Normal [facility] Comment on above: Performed By: #### L [id number] #### [facility] ([facility]) [address] [place] [address] CBCon 12-07-2023 Erythrocyte distribution width (RBC) [Ratio] 18.3 % High 11.5-15.0 [facility] Comment on above: Performed By: #### L [id number] #### [facility] ([facility]) [address] [place] [address] ERYTHROCYTE MEAN CORPUSCULAR HEMOGLOBIN CONCENTRATION (G/DL) BY AUTOMATED 32.3 g/dL Normal 32.0-35.0 [facility] Comment on above: Performed By: #### L [id number] #### [facility] ([facility]) [address] [place] [address] Hematocrit (Bld) [Volume fraction] 28.8 % Low 36.0-48.0 [facility] Comment on above: Performed By: #### L [id number] #### [facility] ([facility]) [address] [place] [address] Hemoglobin (Bld) [Mass/Vol] 9.3 g/dL Low 12.0-15.0 [facility] Comment on above: Performed By: #### L [id number] #### [facility] ([facility]) [address] [place] [address] MCH (RBC) [Entitic mass] 29.8 pg Normal 27.0-33.0 [facility] Comment on above: Performed By: #### L [id number] #### [facility] ([facility]) [address] [place] [address] MCV (RBC) [Entitic vol] 92.3 fL Normal 82.0-98.0 [facility] Comment on above: Performed By: #### L [id number] #### [facility] ([facility]) [address] [place] [address] PLATELETS (10*3/UL) IN BLOOD AUTOMATED COUNT 189 10*3/uL Normal 150-400 [facility] Comment on above: Performed By: #### L [id number] #### [facility] ([facility]) [address] [place] [address] RBC (Bld) [#/Vol] 3.12 10*6/uL Low 3.80-5.00 [facility] Comment on above: Performed By: #### L [id number] #### [facility] [address] [place] [address] WBC (Bld) [#/Vol] 13.21 10*3/uL High 4.00-10.60 [facility] Comment on above: Performed By: #### L [id number] #### [facility] ([facility]) [address] [place] [address] PROCALCITONIN TESTon 024 PROCALCITONIN IN BLOOD 0.48 ng/mL High 0.00-0.10 [facility] Comment on above: Result Comment: Susp ected Lower Respiratory Tract Infection: 0.1-0.25 ng/mL - Low likelihood for bacterial infection;Antibiotics discouraged.* >0.25 ng/mL - Increased likelihood bacterial infection;Antibiotics encouraged. ____ Suspected Sepsis: Strongly consider initiating antibiotics in all unstable patients. 0.1-0.5 ng/mL - Low likelihood for sepsis; Antibiotics discouraged.* >0.5 ng/mL - Increased likelihood sepsis; Antibiotics encouraged. >2.0 ng/mL - High risk of sepsis/septic shock; Antibiotics strongly encouraged. *Recommend retesting PCT within 6-12 hours if clinically indicated and initial PCT<0.5ng/mL Performed By: #### L [id number] #### [facility] ([facility]) [address] [place] [address] CBC WITH AUTO DIFFERENTIALon 12-06-2023 Basophils (Bld) [#/Vol] 0.05 10*3/uL Normal 0.00-0.20 [facility] Comment on above: Performed By: #### L [id number] #### [facility] ([facility]) [address] [place] [address] Basophils/100 WBC (Bld) 0.3 % Normal 0.0-1.0 [facility] Comment on above: Performed By: #### L [id number] #### [facility] ([facility]) [address] [place] [address] Eosinophils (Bld) [#/Vol] 0.17 10*3/uL Normal 0.00-0.50 [facility] Comment on above: Performed By: #### L [id number] #### [facility]) [address] [place] [address] Eosinophils/100 WBC (Bld) 1.1 % Normal 0.0-6.0 [facility] Comment on above: Performed By: #### L [id number] #### [facility] ([facility]) [address] [place] [address] Erythrocyte distribution width (RBC) [Ratio] 18.2 % High 11.5-15.0 [facility] Comment on above: Performed By: #### L [id number] #### [facility] ([facility]) [address] [place] [address] ERYTHROCYTE MEAN CORPUSCULAR HEMOGLOBIN CONCENTRATION (G/DL) BY AUTOMATED 33.6 g/dL Normal 32.0-35.0 [facility] Comment on above: Performed By: #### L [id number] #### [facility]) [address] [place] [address] Hematocrit (Bld) [Volume fraction] 28.6 % Low 36.0-48.0 [facility] Comment on above: Performed By: #### L [id number] #### [facility]) [address] [place] [address] Hemoglobin (Bld) [Mass/Vol] 9.6 g/dL Low 12.0-15.0 [facility] Comment on above: Performed By: #### L [id number] #### [facility]) [address] [place] [address] Immature granulocytes (Bld) [#/Vol] 0.09 10*3/uL Normal 0.00-0.20 [facility] Comment on above: Performed By: #### L [id number] #### [facility] [address] [place] [address] Immature granulocytes/100 WBC (Bld) 0.6 % Normal 0.0-1.0 [facility] Comment on above: Performed By: #### L [id number] #### [facility] ([facility]) [address] [place] [address] Lymphocytes (Bld) [#/Vol] 1.61 10*3/uL Normal 1.20-4.00 [facility] Comment on above: Performed By: #### L [id number] #### [facility] ([facility]) [address] [place] [address] Lymphocytes/100 WBC (Bld) 10.7 % Low 20.0-45.0 [facility] Comment on above: Performed By: #### L [id number] #### [facility] ([facility]) [address] [facility] [address] MCH (RBC) [Entitic mass] 30.1 pg Normal 27.0-33.0 [facility] Comment on above: Performed By: #### L [id number] #### [facility] ([facility]) [address] [place] [address] MCV (RBC) [Entitic vol] 89.7 fL Normal 82.0-98.0 [facility] Comment on above: Performed By: #### L [id number] #### [facility] [address] [facility] [place] [address] Monocytes (Bld) [#/Vol] 1.22 10*3/uL High 0.10-1.00 [facility] Comment on above: Performed By: #### L [id number] #### [facility]) [address] [place] [address] Monocytes/100 WBC (Bld) 8.1 % Normal 5.0-12.0 [facility] Comment on above: Performed By: #### L [id number] #### [facility] ([facility]) [address] [place] [address] Neutrophils (Bld) [#/Vol] 11.94 10*3/uL High 1.60-7.60 [facility] Comment on above: Performed By: #### L [id number] #### [facility] ([facility]) [address] [place] [address] Neutrophils/100 WBC (Bld) 79.2 % High 40.0-72.0 [facility] Comment on above: Performed By: #### L [id number] #### [facility] ([facility]) [address] [place] [address] NRBC (PER 100 WBCS) BY AUTOMATED COUNT 0.0 % Normal 0 [facility] Comment on above: Performed By: #### L [id number] #### [facility] ([facility]) [address] [place] [address] PLATELETS (10*3/UL) IN BLOOD AUTOMATED COUNT 190 10*3/uL Normal 150-400 [facility] Comment on above: Performed By: #### L [id number] #### [facility] ([facility]) [address] [place] [address] RBC (Bld) [#/Vol] 3.19 10*6/uL Low 3.80-5.00 [facility] Comment on above: Performed By: #### L [id number] #### [facility] ([facility]) [address] [place] [address] WBC (Bld) [#/Vol] 15.08 10*3/uL High 4.00-10.60 [facility] Comment on above: Performed By: #### L [id number] #### [facility]) [address] [place] [address] COMPREHENSIVE METABOLIC PANE Elver 12-06-2023 Albumin [Mass/Vol] 3.3 g/dL Low 3.5-5.7 [facility] Comment on above: Performed By: #### L [id number] #### [facility] [address] [place] [address] ALP [Catalytic activity/Vol] 176 U/L High 34-104 [facility] Comment on above: Performed By: #### L [id number] #### [facility] ([facility]) [address] [place] [address] ALT [Catalytic activity/Vol] 27 U/L Normal 7-52 [facility] Comment on above: Performed By: #### L [id number] #### [facility]) [address] [place] [address] Anion gap [Moles/Vol] 15 mmol/L Normal 7-20 [facility] Comment on above: Performed By: #### L [id number] #### [facility] ([facility]) [address] [place] [address] AST [Catalytic activity/Vol] 25 U/L Normal 13-39 [facility] Comment on above: Performed By: #### L [id number] #### [facility] ([facility]) [address] [place] [address] Bilirubin [Mass/Vol] 0.7 mg/dL Normal 0.3-1.0 [facility] Comment on above: Performed By: #### L [id number] #### [facility] ([facility]) [address] [place] [address] Calcium [Mass/Vol] 8.1 mg/dL Low 8.6-10.3 [facility] Comment on above: Performed By: #### L [id number] #### [facility] [address] [place] [address] Chloride [Moles/Vol] 103 mmol/L Normal 98-107 [facility] Comment on above: Performed By: #### L [id number] #### [facility] [address] [place] [address] CO2 [Moles/Vol] 19 mmol/L Low 21-31 [facility] Comment on above: Performed By: #### L [id number] #### [facility] ([facility]) [address] [facility] [place] [address] Creatinine [Mass/Vol] 1.30 mg/dL High 0.60-1.20 [facility] Comment on above: Performed By: #### L [id number] #### [facility] ([facility]) [address] [place] [address] GLOMERULAR FILTRATION RATE ML/MIN/1.73 SQ M.PREDICTED 45.4 mL/min/1.73m*2 Low >60.0 [facility] Comment on above: Result Comment: The [facility]???s estimated glomerular filtration rate (eGFR) will no longer include consideration of race in its calculation. The National Kidney Foundation???s eGFR Task Force developed new recommendations for the estimation of the glomerular filtration rate in the [place] They recommend immediate implementation of the new equation refit without the race variable in all laboratories because the calculation does not include race. In addition to not including race in the calculation and reporting, it included diversity in its development, and has acceptable performance characteristics and potential consequences that do not disproportionately affect any one group of individuals. Performed By: #### L [id number] #### [facility] ([facility]) [address] [place] [address] Glucose [Mass/Vol] 208 mg/dL High 70-100 [facility] Comment on above: Performed By: #### L [id number] #### [facility] ([facility]) [address] [place] [address] Potassium [Moles/Vol] 3.7 mmol/L Normal 3.5-5.1 [facility] Comment on above: Performed By: #### L [id number] #### [facility] ([facility]) [address] [place] [address] Protein [Mass/Vol] 6.6 g/dL Normal 6.0-8.3 [facility] Comment on above: Performed By: #### L [id number] #### [facility] [address] [place] [address] Sodium [Moles/Vol] 133 mmol/L Low 136-145 [facility] Comment on above: Performed By: #### L [id number] #### [facility] [address] [place] [address] Urea nitrogen [Mass/Vol] 60 mg/dL High 7-25 [facility] Comment on above: Performed By: #### L [id number] #### [facility] ([facility]) [address] [place] [address] UREA NITROGEN/CREATININ E (MASS RATIO) IN SER/PLAS 46.2 Normal [facility] Comment on above: Performed By: #### L [id number] #### [facility] ([facility]) [address] [place] [address] MAGNESIUMon 12-06-2023 Magnesium [Mass/Vol] 1.9 mg/dL Normal 1.9-2.7 [facility] Comment on above: Performed By: #### L [id number] #### [facility] ([facility]) [address] [place] [address] PHOSPHORUSon 12-06-2023 Magnesium [Mass/Vol] 3.2 mg/dL Normal 2.5-5.0 [facility] Comment on above: Performed By: #### L [id number] #### [facility] ([facility]) [address] [place] [address] PREALBUMINon 12-06-2023 Prealbumin [Mass/Vol] 19.7 mg/dL Normal [facility] Comment on above: Performed By: #### L [id number] #### [facility] ([facility]) [address] [place] [address] TRIGLYCERIDESon 12-06-2023 FASTING? Unknown Normal [facility] Comment on above: Performed By: #### L [id number] #### [facility] [address] [place] [address] Magnesium [Mass/Vol] 271 mg/dL High 40-149 [facility] Comment on above: Result Comment: TRIG LYCERIDE REFERENCE RANGE: 20 YEARS AND OLDER CARDIOVASCULAR RISK LESS THAN 150 mg/dL LOW RISK 150 TO 199 mg/dL BORDERLINE RISK 200 mg/dL AND GREATER HIGH RISK Performed By: #### L [id number] #### [facility] ([facility]) [address] [place] [address] CBC WITH AUTO DIFFERENTIALon 12-05-2023 Basophils (Bld) [#/Vol] 0.04 10*3/uL Normal 0.00-0.20 [facility] Comment on above: Performed By: #### L [id number] #### [facility] ([facility]) [address] [place] [address] Basophils/100 WBC (Bld) 0.3 % Normal 0.0-1.0 [facility] Comment on above: Performed By: #### L [id number] #### [facility] ([facility]) [address] [place] [address] Eosinophils (Bld) [#/Vol] 0.13 10*3/uL Normal 0.00-0.50 [facility] Comment on above: Performed By: #### L [id number] #### [facility] ([facility]) [address] [place] [address] Eosinophils/100 WBC (Bld) 0.9 % Normal 0.0-6.0 [facility] Comment on above: Performed By: #### L [id number] #### [facility] ([facility]) [address] [place] [address] Erythrocyte distribution width (RBC) [Ratio] 18.1 % High 11.5-15.0 [facility] Comment on above: Performed By: #### L [id number] #### [facility] ([facility]) [address] [place] [address] ERYTHROCYTE MEAN CORPUSCULAR HEMOGLOBIN CONCENTRATION (G/DL) BY AUTOMATED 33.3 g/dL Normal 32.0-35.0 [facility] Comment on above: Performed By: #### L [id number] #### [facility]) [address] [place] [address] Hematocrit (Bld) [Volume fraction] 28.5 % Low 36.0-48.0 [facility] Comment on above: Performed By: #### L [id number] #### [facility]) [address] [place] [address] Hemoglobin (Bld) [Mass/Vol] 9.5 g/dL Low 12.0-15.0 [facility] Comment on above: Performed By: #### L [id number] #### [facility] ([facility]) [address] [place] [address] Immature granulocytes (Bld) [#/Vol] 0.08 10*3/uL Normal 0.00-0.20 [facility] Comment on above: Performed By: #### L [id number] #### [facility] ([facility]) [address] [place] [address] Immature granulocytes/100 WBC (Bld) 0.6 % Normal 0.0-1.0 [facility] Comment on above: Performed By: #### L [id number] #### [facility] ([facility]) [address] [place] [address] Lymphocytes (Bld) [#/Vol] 1.91 10*3/uL Normal 1.20-4.00 [facility] Comment on above: Performed By: #### L [id number] #### [facility] ([facility]) [address] [place] [address] Lymphocytes/100 WBC (Bld) 13.8 % Low 20.0-45.0 [facility] Comment on above: Performed By: #### L [id number] #### [facility]) [address] [place] [address] MCH (RBC) [Entitic mass] 30.0 pg Normal 27.0-33.0 [facility] Comment on above: Performed By: #### L [id number] #### [facility] ([facility]) [address] [place] [address] MCV (RBC) [Entitic vol] 89.9 fL Normal 82.0-98.0 [facility] Comment on above: Performed By: #### L [id number] #### [facility]) [address] [place] [address] Monocytes (Bld) [#/Vol] 1.24 10*3/uL High 0.10-1.00 [facility] Comment on above: Performed By: #### L [id number] #### [facility]) [address] [place] [address] Monocytes/100 WBC (Bld) 9.0 % Normal 5.0-12.0 [facility] Comment on above: Performed By: #### L [id number] #### [facility]) [address] [place] [address] Neutrophils (Bld) [#/Vol] 10.44 10*3/uL High 1.60-7.60 [facility] Comment on above: Performed By: #### L [id number] #### [facility]) [address] [place] [address] Neutrophils/100 WBC (Bld) 75.4 % High 40.0-72.0 [facility] Comment on above: Performed By: #### L [id number] #### [facility]) [address] [place] [address] NRBC (PER 100 WBCS) BY AUTOMATED COUNT 0.0 % Normal 0 [facility] Comment on above: Performed By: #### L [id number] #### [facility]) [address] [place] [address] PLATELETS (10*3/UL) IN BLOOD AUTOMATED COUNT 167 10*3/uL Normal 150-400 [facility] Comment on above: Performed By: #### L [id number] #### [facility]) [address] [place] [address] RBC (Bld) [#/Vol] 3.17 10*6/uL Low 3.80-5.00 [facility] Comment on above: Performed By: #### L [id number] #### [facility] ([facility]) [address] [place] [address] WBC (Bld) [#/Vol] 13.84 10*3/uL High 4.00-10.60 [facility] Comment on above: Performed By: #### L [id number] #### [facility] ([facility]) [address] [place] [address] COMPREHENSIVE METABOLIC PANE Elver 12-05-2023 Albumin [Mass/Vol] 3.2 g/dL Low 3.5-5.7 [facility] Comment on above: Performed By: #### L [id number] #### [facility] ([facility]) [address] [place] [address] ALP [Catalytic activity/Vol] 160 U/L High 34-104 [facility] Comment on above: Performed By: #### L [id number] #### [facility] ([facility]) [address] [place] [address] ALT [Catalytic activity/Vol] 26 U/L Normal 7-52 [facility] Comment on above: Performed By: #### L [id number] #### [facility] ([facility]) [address] [place] [address] Anion gap [Moles/Vol] 14 mmol/L Normal 7-20 [facility] Comment on above: Performed By: #### L [id number] #### [facility] ([facility]) [address] [place] [address] AST [Catalytic activity/Vol] 21 U/L Normal 13-39 [facility] Comment on above: Performed By: #### L [id number] #### [facility] ([facility]) [address] [place] [address] Bilirubin [Mass/Vol] 0.7 mg/dL Normal 0.3-1.0 [facility] Comment on above: Performed By: #### L [id number] #### [facility]) [address] [place] [address] Calcium [Mass/Vol] 8.2 mg/dL Low 8.6-10.3 [facility] Comment on above: Performed By: #### L [id number] #### [facility]) [address] [place] [address] Chloride [Moles/Vol] 102 mmol/L Normal 98-107 [facility] Comment on above: Performed By: #### L [id number] #### [facility] ([facility]) [address] [place] [address] CO2 [Moles/Vol] 22 mmol/L Normal 21-31 [facility] Comment on above: Performed By: #### L [id number] #### [facility] ([facility]) [address] [place] [address] Creatinine [Mass/Vol] 1.17 mg/dL Normal 0.60-1.20 [facility] Comment on above: Performed By: #### L [id number] #### [facility] ([facility]) [address] [place] [address] GLOMERULAR FILTRATION RATE ML/MIN/1.73 SQ M.PREDICTED 51.5 mL/min/1.73m*2 Low >60.0 [facility] Comment on above: Result Comment: The [facility]???s estimated glomerular filtration rate (eGFR) will no longer include consideration of race in its calculation. The National Kidney Foundation???s eGFR Task Force developed new recommendations for the estimation of the glomerular filtration rate in the [place] They recommend immediate implementation of the new equation refit without the race variable in all laboratories because the calculation does not include race. In addition to not including race in the calculation and reporting, it included diversity in its development, and has acceptable performance characteristics and potential consequences that do not disproportionately affect any one group of individuals. Performed By: #### L [id number] #### [facility] ([facility]) [address] [place] [address] Glucose [Mass/Vol] 120 mg/dL High 70-100 [facility] Comment on above: Performed By: #### L [id number] #### [facility] ([facility]) [address] [place] [address] Potassium [Moles/Vol] 3.9 mmol/L Normal 3.5-5.1 [facility] Comment on above: Performed By: #### L [id number] #### [facility] ([facility]) [address] [place] [address] Protein [Mass/Vol] 6.5 g/dL Normal 6.0-8.3 [facility] Comment on above: Performed By: #### L [id number] #### [facility] ([facility]) [address] [place] [address] Sodium [Moles/Vol] 134 mmol/L Low 136-145 [facility] Comment on above: Performed By: #### L [id number] #### [facility] ([facility]) [address] [place] [address] Urea nitrogen [Mass/Vol] 57 mg/dL High 7-25 [facility] Comment on above: Performed By: #### L [id number] #### [facility] ([facility]) [address] [place] [address] UREA NITROGEN/CREATININ E (MASS RATIO) IN SER/PLAS 48.7 Normal [facility] Comment on above: Performed By: #### L [id number] #### [facility] ([facility]) [address] [place] [address] MAGNESIUMon 12-05-2023 Magnesium [Mass/Vol] 1.9 mg/dL Normal 1.9-2.7 [facility] Comment on above: Performed By: #### L [id number] #### [facility] ([facility]) [address] [facility] [address] PHOSPHORUSon 12-05-2023 Magnesium [Mass/Vol] 3.2 mg/dL Normal 2.5-5.0 [facility] Comment on above: Performed By: #### L [id number] #### [facility] ([facility]) [address] [place] [address] PREALBUMINon 12-05-2023 Prealbumin [Mass/Vol] 24.8 mg/dL Normal [facility] Comment on above: Performed By: #### L [id number] #### [facility] ([facility]) [address] [place] [address] URINALYSISon 12-05-2023 BILIRUBIN, TOTAL PRESENCE IN URINE Negative Normal Negative [facility] Comment on above: Performed By: #### L [id number] #### [facility] ([facility]) [address] [place] [address] Clarity (U) Slightly Cloudy Abnormal Clear [facility] Comment on above: Performed By: #### L [id number] #### [facility] ([facility]) [address] [place] [address] Color (U) Yellow Normal Yellow [facility] Comment on above: Performed By: #### L [id number] #### [facility] ([facility]) [address] [place] [address] Glucose (U) [Mass/Vol] Negative Normal Negative [facility] Comment on above: Performed By: #### L [id number] #### [facility] ([facility]) [address] [place] [address] HEMOGLOBIN PRESENCE IN URINE Negative Normal Negative [facility] Comment on above: Performed By: #### L [id number] #### [facility] ([facility]) [address] [place] [address] Ketones Ql (U) Negative Normal Negative [facility] Comment on above: Performed By: #### L [id number] #### [facility] ([facility]) [address] [place] [address] LEUKOCYTE ESTERASE PRESENCE IN URINE BY TEST STRIP Moderate Abnormal Negative [facility] Comment on above: Performed By: #### L [id number] #### [facility] ([facility]) [address] [place] [address] NITRITE PRESENCE IN URINE Negative Normal Negative [facility] Comment on above: Performed By: #### L [id number] #### [facility] ([facility]) [address] [place] [address] pH (U) 7.0 [pH] Normal 5.0-8.0 [facility] Comment on above: Performed By: #### L [id number] #### [facility] ([facility]) [address] [place] [address] Protein (U) [Mass/Vol] Negative Normal Negative [facility] Comment on above: Performed By: #### L [id number] #### [facility] ([facility]) [address] [place] [address] Specific gravity (U) [Rel density] 1.010 Low 1.015-1.020 [facility] Comment on above: Performed By: #### L [id number] #### [facility] ([facility]) [address] [place] [address] URINALYSIS MICROSCOPICon CASTS IN URINE Present Abnormal None Seen [facility] Comment on above: Performed By: #### L [id number] #### [facility] ([facility]) [address] [place] [address] CRYSTALS IN URINE Normal [facility] Comment on above: Performed By: #### L [id number] #### [facility] ([facility]) [address] [place] [address] HYALINE CASTS /LPF IN URINE SEDIMENT BY MICROSCOPY 31 /LPF High <1 [facility] Comment on above: Performed By: #### L [id number] #### [facility] ([facility]) [address] [place] [address] MUCUS (#/HPF) IN URINE SEDIMENT Few Normal None Seen, Occasional, Few [facility] Comment on above: Performed By: #### L [id number] #### [facility] ([facility]) [address] [place] [address] RBC (#/HPF) IN URINE SEDIMENT 21-50 Abnormal None Seen [facility] Comment on above: Performed By: #### L [id number] #### [facility] ([facility]) [address] [facility] [place] [address] SQUAMOUS EPITHELIAL CELLS (#/HPF) IN URINE SEDIMENT Moderate Abnormal None Seen, Occasional [facility] Comment on above: Performed By: #### L [id number] #### [facility] ([facility]) [address] [facility] [place] [address] WBC (LEUKOCYTE) (#/HPF) IN URINE SEDIMENT 21-50 Abnormal None Seen [facility] Comment on above: Performed By: #### L [id number] #### [facility] ([facility]) [address] [place] [address] YEAST, BUDDING (#/HPF) IN URINE Many Abnormal None Seen [facility] Comment on above: Performed By: #### L [id number] #### [facility] ([facility]) [address] [place] [address] URINE CULTURE, ROUTINEon Bacteria identified Cx Nom (U) DEBRA ALBICANS Abnormal [facility] Comment on above: Result Comment: >100 ,000 CFU/Ml Debra albicans Presumptive Identification Performed By: #### L [id number] #### [facility] ([facility]) [address] [place] [address] CBC AND AUTO DIFFon 12-04-19 24 ABSOLUTE BASOPHIL 0.1 X10E9/L Normal 0.0-0.2 [facility] Comment on above: Performed By: #### C BCA, CMP, [id number] ####[facility] ([id number])[address], [place] [address] ABSOLUTE NEUTROPHIL 8.9 X10E9/L High 1.5-6.6 [facility] Comment on above: Performed By: #### C BCA, CMP, 95014-8 ####[facility] ([id number])[address] [address] Basophils/100 WBC (Bld) 0.7 % Normal [facility] Comment on above: Performed By: #### Dru SHEA CMP, ####[facility] ([id number])[address] [address] Eosinophils (Bld) [#/Vol] 0.1 10*3/uL Normal 0.0-0.4 [facility] Comment on above: Performed By: #### Dru SHEA CMP, ####[facility] ([id number])[address] [address] [address] Eosinophils/100 WBC (Bld) 1.0 % Normal [facility] Comment on above: Performed By: #### Dru SHEA CMP, ####[facility] ([id number])[address] [address] [address] Erythrocyte distribution width (RBC) [Ratio] 19.3 % High 11.5-15.0 [facility] Comment on above: Performed By: #### Dru SHEA CMP, ####[facility] ([id number])[address] [address] [address] Hematocrit (Bld) [Volume fraction] 27.1 % Low 35-47 [facility] Comment on above: Performed By: #### Dru SHEA CMP, ####[facility] ([id number])[address] [address] [address] Hemoglobin (Bld) [Mass/Vol] 9.0 g/dL Low 11.7-15.5 [facility] Comment on above: Performed By: #### Dru SHEA CMP, ####[facility] ([id number])[address] [address] [address] Lymphocytes (Bld) [#/Vol] 1.6 10*3/uL Normal 1.0-3.5 [facility] Comment on above: Performed By: #### C TOO SHEA, ####[facility] ([id number])[address] [address] Lymphocytes/100 WBC (Bld) 13.3 % Normal [facility] Comment on above: Performed By: #### Dru SHEA CMP, ####[facility] ([id number])[address], [address] [address] MCH (RBC) [Entitic mass] 29.7 pg Normal 27-34 [facility] Comment on above: Performed By: #### Dru SHEA CMP, ####[facility] ([id number])[address], [address] [address] MCHC (RBC) [Mass/Vol] 33.0 g/dL Normal 32-36 [facility] Comment on above: Performed By: #### Dru SHEA CMP, ####[facility] ([id number])[address], [address] [address] MCV (RBC) [Entitic vol] 90 fL Normal 80-100 [facility] Comment on above: Performed By: #### Dru SHEA CMP, ####[facility] ([id number])[address], [address] [address] Monocytes (Bld) [#/Vol] 1.1 10*3/uL High 0-0.9 [facility] Comment on above: Performed By: #### Dru SHEA, CMP, ####[facility] ([id number])[address] [address] Monocytes/100 WBC (Bld) 9.3 % Normal [facility] Comment on above: Performed By: #### C BCA, CMP, ####[facility] ([id number])[address] [address] [place] [address] Neutrophils/100 WBC (Bld) 75.7 % Normal [facility] Comment on above: Performed By: #### C BCA, CMP, ####[facility] ([id number])[address], [address] [place] [address] Platelet mean volume (Bld) [Entitic vol] 10.6 fL Normal 7-12 [facility] Comment on above: Performed By: #### Dru SHEA, CMP, ####[facility] ([id number])[address] [address] Platelets (Bld) [#/Vol] 137 10*3/uL Low 150-450 [facility] Comment on above: Performed By: #### Dru SHEA, CMP, ####[facility] ([id number])[address] [address] [place] [address] RBC COUNT 3.02 X10E12/L Low 3.80-5.20 [facility] Comment on above: Performed By: #### Dru SHEA, CMP, ####[facility] ([id number])[address] [address] [place] [address] WBC (Bld) [#/Vol] 11.8 10*3/uL High 4.0-11.0 [facility] Comment on above: Performed By: #### C MONSE, CMP, ####[facility] ([id number])[address], [address] [place] [address] COMPREHENSIVE METABOLIC PANE Elver 12-04-2023 Albumin [Mass/Vol] 3.1 g/dL Low 3.2-5.3 [facility] Comment on above: Performed By: #### Dru SHEA, CMP, ####[facility] ([id number])[address], [address], [place] [address] ALP [Catalytic activity/Vol] 153 U/L High 39-130 [facility] Comment on above: Performed By: #### C BCA, CMP, ####[facility] ([id number])[address], [address], [place] [address] ALT [Catalytic activity/Vol] 27 U/L Normal 0-31 [facility] Comment on above: Performed By: #### C BCA, CMP, ####[facility] ([id number])[address], [address], [place] [address] Anion gap [Moles/Vol] 11 mmol/L Normal 5-15 [facility] Comment on above: Performed By: #### C BCA, CMP, ####[facility] ([id number])[address], [address], [place] [address] AST [Catalytic activity/Vol] 21 U/L Normal 0-41 [facility] Comment on above: Performed By: #### C BCA, CMP, ####[facility] ([id number])[address], [address], [place] [address] Bilirubin [Mass/Vol] 0.6 mg/dL Normal 0.3-1.2 [facility] Comment on above: Performed By: #### C BCA, CMP, ####[facility] ([id number])[address], [address], [place] [address] Calcium [Mass/Vol] 8.6 mg/dL Normal 8.5-10.5 [facility] Comment on above: Performed By: #### C BCA, CMP, ####[facility] ([id number])[address], [address], [place] [address] Chloride [Moles/Vol] 102 mmol/L Normal 98-109 [facility] Comment on above: Performed By: #### C MONSE [facility], ####[facility] ([id number])[address], [address] [address] CO2 [Moles/Vol] 21 mmol/L Low 22-32 [facility] Comment on above: Performed By: #### C TOO SHEA, ####[facility] ([id number])[address] [address], [place] [address] Creatinine [Mass/Vol] 1.17 mg/dL High 0.40-1.00 [facility] Comment on above: Result Comment: METH OD TRACEABLE TO IDMS STANDARD Performed By: #### C TOO SHEA, ####[facility] ([id number])[address] [address] GFR/1.73 sq M.predicted among non-blacks MDRD (S/P/Bld) [Vol rate/Area] 51 mL/min/{1.73_m2} Low >59 [facility] Comment on above: Result Comment: Repo rted eGFR is based on theCKD-EPI 2020 equation that doesnot use a race coefficient. Performed By: #### C TOO SHEA, ####[facility] ([id number])[address] [address], [place] [address] Glucose [Mass/Vol] 228 mg/dL High 65-99 [facility] Comment on above: Performed By: #### C TOO SHEA, ####[facility] ([id number])[address] [address] [address] Potassium [Moles/Vol] 4.1 mmol/L Normal 3.5-5.0 [facility] Comment on above: Performed By: #### C TOO SHEA, ####[facility] ([id number])[address], [address] [place] [address] Protein [Mass/Vol] 6.6 g/dL Normal 6.0-8.0 [facility] Comment on above: Performed By: #### C MONSE CMP, ####[facility] ([id number])[address], [address] [place] [address] Sodium [Moles/Vol] 134 mmol/L Normal 134-146 [facility] Comment on above: Performed By: #### Dru SHEA CMP, ####[facility] ([id number])[address], [address] [place] [address] Urea nitrogen [Mass/Vol] 55 mg/dL High 5-27 [facility] Comment on above: Performed By: #### Dru SHEA CMP, ####[facility] ([id number])[address], [address] [place] [address] Glucose Glucometer (BldC) [M ass/Vol]on 12-04-2023 Glucose [Mass/Vol] 273 mg/dL High 65-99 [facility] Glucose [Mass/Vol] 252 mg/dL High 65-99 [facility] Glucose [Mass/Vol] 258 mg/dL High 65-99 [facility] MAGNESIUMon 12-04-2023 Magnesium [Mass/Vol] 1.9 mg/dL Normal 1.8-2.6 [facility] Comment on above: Performed By: #### C BCA, CMP, ####[facility] ([id number])[address], [address] [place] [address] CBC AND AUTO DIFFon 12-03-19 24 ABSOLUTE BASOPHIL 0.1 X10E9/L Normal 0.0-0.2 [facility] Comment on above: Performed By: #### C BCA, CMP, ####[facility] ([id number])[address], [address], [place] [address] ABSOLUTE NEUTROPHIL 8.0 X10E9/L High 1.5-6.6 [facility] Comment on above: Performed By: #### C MONSE, CMP, ####[facility] ([id number])[address], [address] [address] Basophils/100 WBC (Bld) 0.9 % Normal [facility] Comment on above: Performed By: #### Dru SHEA, CMP, ####[facility] ([id number])[address] [address] Eosinophils (Bld) [#/Vol] 0.1 10*3/uL Normal 0.0-0.4 [facility] Comment on above: Performed By: #### Dru SHEA, [facility], ####[facility] ([id number])[address], [address] [address] Eosinophils/100 WBC (Bld) 1.0 % Normal [facility] Comment on above: Performed By: #### Dru SHEA, [facility], ####[facility] ([id number])[address] [address] [address] Erythrocyte distribution width (RBC) [Ratio] 19.7 % High 11.5-15.0 [facility] Comment on above: Performed By: #### C MONSE, CMP, ####[facility] ([id number])[address], [address], [place] [address] Hematocrit (Bld) [Volume fraction] 26.7 % Low 35-47 [facility] Comment on above: Performed By: #### Dru SHEA, CMP, ####[facility] ([id number])[address], [address], [place] [address] Hemoglobin (Bld) [Mass/Vol] 9.0 g/dL Low 11.7-15.5 [facility] Comment on above: Performed By: #### Dru SHEA CMP, ####[facility] ([id number])[address] [address] [place] [address] Lymphocytes (Bld) [#/Vol] 1.1 10*3/uL Normal 1.0-3.5 [facility] Comment on above: Performed By: #### Dru SHEA CMP, ####[facility] ([id number])[address], [address] [address] Lymphocytes/100 WBC (Bld) 10.5 % Normal [facility] Comment on above: Performed By: #### Dru SHEA CMP, ####[facility] ([id number])[address], [address] [place] [address] MCH (RBC) [Entitic mass] 30.0 pg Normal 27-34 [facility] Comment on above: Performed By: #### Dru SHEA CMP, ####[facility] ([id number])[address] [address] MCHC (RBC) [Mass/Vol] 33.6 g/dL Normal 32-36 [facility] Comment on above: Performed By: #### Dru SHEA CMP, ####[facility] ([id number])[address] [address] MCV (RBC) [Entitic vol] 89 fL Normal 80-100 [facility] Comment on above: Performed By: #### Dru SHEA CMP, ####[facility] ([id number])[address], [address] [place] [address] Monocytes (Bld) [#/Vol] 1.0 10*3/uL High 0-0.9 [facility] Comment on above: Performed By: #### C MONSE CMP, ####[facility] ([id number])[address], [address], [place] [address] Monocytes/100 WBC (Bld) 10.1 % Normal [facility] Comment on above: Performed By: #### Dru SHEA CMP, ####[facility] ([id number])[address], [address], [place] [address] Neutrophils/100 WBC (Bld) 77.5 % Normal [facility] Comment on above: Performed By: #### Dru SHEA CMP, ####[facility] ([id number])[address], [address], [place] [address] Platelet mean volume (Bld) [Entitic vol] 10.5 fL Normal 7-12 [facility] Comment on above: Performed By: #### Dru SHEA CMP, ####[facility] ([id number])[address], [address], [place] [address] Platelets (Bld) [#/Vol] 129 10*3/uL Low 150-450 [facility] Comment on above: Performed By: #### Dru SHEA CMP, ####[facility] ([id number])[address], [address], [place] [address] RBC COUNT 2.99 X10E12/L Low 3.80-5.20 [facility] Comment on above: Performed By: #### Dru SHEA, CMP, ####[facility] ([id number])[address], [address], [place] [address] WBC (Bld) [#/Vol] 10.3 10*3/uL Normal 4.0-11.0 [facility] Comment on above: Performed By: #### C BCA, CMP, ####[facility] ([id number])[address], [address], [place] [address] COMPREHENSIVE METABOLIC PANE Elver 12-03-2023 Albumin [Mass/Vol] 3.1 g/dL Low 3.2-5.3 [facility] Comment on above: Performed By: #### C BCA, CMP, ####[facility] ([id number])[address], [address], [place] [address] ALP [Catalytic activity/Vol] 149 U/L High 39-130 [facility] Comment on above: Performed By: #### C BCA, CMP, ####[facility] ([id number])[address], [address], [place] [address] ALT [Catalytic activity/Vol] 31 U/L Normal 0-31 [facility] Comment on above: Performed By: #### C BCA, CMP, ####[facility] ([id number])[address], [address], [place] [address] Anion gap [Moles/Vol] 11 mmol/L Normal 5-15 [facility] Comment on above: Performed By: #### C BCA, CMP, ####[facility] ([id number])[address], [address], [place] [address] AST [Catalytic activity/Vol] 22 U/L Normal 0-41 [facility] Comment on above: Performed By: #### C BCA, CMP, ####[facility] ([id number])[address], [address], [place] [address] Bilirubin [Mass/Vol] 0.6 mg/dL Normal 0.3-1.2 [facility] Comment on above: Performed By: #### C BCA, CMP, ####[facility] ([id number])[address], [address], [place] [address] Calcium [Mass/Vol] 8.1 mg/dL Low 8.5-10.5 [facility] Comment on above: Performed By: #### C MONSE CMP, 26867-9 ####[facility] ([id number])[address] [place] [address] Chloride [Moles/Vol] 102 mmol/L Normal 98-109 [facility] Comment on above: Performed By: #### C TOO SHEA, ####[facility] ([id number])[address], [address], [place] [address] CO2 [Moles/Vol] 22 mmol/L Normal 22-32 [facility] Comment on above: Performed By: #### C TOO SHEA, ####[facility] ([id number])[address], [address], [place] [address] Creatinine [Mass/Vol] 1.15 mg/dL High 0.40-1.00 [facility] Comment on above: Result Comment: METH OD TRACEABLE TO IDMS STANDARD Performed By: #### C TOO SHEA, ####[facility] ([id number])[address] [address] GFR/1.73 sq M.predicted among non-blacks MDRD (S/P/Bld) [Vol rate/Area] 53 mL/min/{1.73_m2} Low >59 [facility] Comment on above: Result Comment: Repo rted eGFR is based on theCKD-EPI 2020 equation that doesnot use a race coefficient. Performed By: #### C BCA, CMP, ####[facility] ([id number])[address], [address], [place] [address] Glucose [Mass/Vol] 224 mg/dL High 65-99 [facility] Comment on above: Performed By: #### C BCA, CMP, 21061-4 ####[facility] ([id number])[address] [place] [place] [address] Potassium [Moles/Vol] 3.6 mmol/L Normal 3.5-5.0 [facility] Comment on above: Performed By: #### C BCA, CMP, ####[facility] ([id number])[address] [address] Protein [Mass/Vol] 6.7 g/dL Normal 6.0-8.0 [facility] Comment on above: Performed By: #### C BCA, CMP, ####[facility] ([id number])[address] [address] Sodium [Moles/Vol] 135 mmol/L Normal 134-146 [facility] Comment on above: Performed By: #### C BCA, CMP, ####[facility] ([id number])[address] [address] Urea nitrogen [Mass/Vol] 49 mg/dL High 5-27 [facility] Comment on above: Performed By: #### C BCA, CMP, ####[facility] ([id number])[address] [address] Calcium.ionized (Bld) [Mass/ Vol]on 12-03-2023 IONIZED CALCIUM 4.5 mg/dL Normal 4.5-5.3 [facility] Comment on above: Performed By: #### 3 8230-9, 12103-8 ####[facility] ([id number])[address] [address] Glucose Glucometer (BldC) [M ass/Vol]on 12-03-2023 Glucose [Mass/Vol] 291 mg/dL High 65-99 [facility] Glucose [Mass/Vol] 289 mg/dL High 65-99 [facility] Glucose [Mass/Vol] 347 mg/dL High 65-99 [facility] Glucose [Mass/Vol] 251 mg/dL High 65-99 [facility] Glucose [Mass/Vol] 295 mg/dL High 65-99 [facility] MAGNESIUMon 12-03-2023 Magnesium [Mass/Vol] 1.8 mg/dL Normal 1.8-2.6 [facility] Comment on above: Performed By: #### C MONSE, CMP, 00986-3 ####[facility] ([id number])[address], [address] [place] [address] Magnesium Ionized ISE (Bld) [Moles/Vol]on 12-03-2023 Magnesium [Moles/Vol] 0.56 mmol/L Normal 0.45-0.74 [facility] Comment on above: Result Comment: NEW REFERENCE RANGE Performed By: #### 3 8230-9, 91476-5 ####[facility] ([id number])[address], [address] [place] [address] POTASSIUMon 12-03-2023 Potassium [Moles/Vol] 3.9 mmol/L Normal 3.5-5.0 [facility] Comment on above: Performed By: #### 2 823-3 ####[facility] ([id number])[address], [address] [place] [address] CBC AND AUTO DIFFon 12-02-19 24 ABSOLUTE BASOPHIL 0.1 X10E9/L Normal 0.0-0.2 [facility] Comment on above: Performed By: #### C BCA, CMP, 62181-7 ####[facility] ([id number])[address], [address] [place] [address] ABSOLUTE NEUTROPHIL 7.9 X10E9/L High 1.5-6.6 [facility] Comment on above: Performed By: #### C MONSE, CMP, ####[facility] ([id number])[address], [address], [place] [address] Basophils/100 WBC (Bld) 0.6 % Normal [facility] Comment on above: Performed By: #### C MONSE, CMP, ####[facility] ([id number])[address], [place] [address] Eosinophils (Bld) [#/Vol] 0.1 10*3/uL Normal 0.0-0.4 [facility] Comment on above: Performed By: #### Dru SHEA, CMP, ####[facility] ([id number])[address], [place] [address] Eosinophils/100 WBC (Bld) 1.0 % Normal [facility] Comment on above: Performed By: #### C MONSE, CMP, ####[facility] ([id number])[address], [place] [address] Erythrocyte distribution width (RBC) [Ratio] 19.2 % High 11.5-15.0 [facility] Comment on above: Performed By: #### C MONSE, CMP, ####[facility] ([id number])[address] [address], [place] [address] Hematocrit (Bld) [Volume fraction] 26.1 % Low 35-47 [facility] Comment on above: Performed By: #### C MONSE, CMP, ####[facility] ([id number])[address] [address] [place] [address] Hemoglobin (Bld) [Mass/Vol] 8.7 g/dL Low 11.7-15.5 [facility] Comment on above: Performed By: #### C MONSE, CMP, ####[facility] ([id number])[address], [place] [address] Lymphocytes (Bld) [#/Vol] 0.9 10*3/uL Low 1.0-3.5 [facility] Comment on above: Performed By: #### C MONSE, CMP, ####[facility] ([id number])[address], [place] [address] Lymphocytes/100 WBC (Bld) 9.0 % Normal [facility] Comment on above: Performed By: #### Dru SHEA, CMP, ####[facility] ([id number])[address] [address] [place] [address] MCH (RBC) [Entitic mass] 30.0 pg Normal 27-34 [facility] Comment on above: Performed By: #### Dru SHEA, [facility], ####[facility] ([id number])[address] [address], [place] [address] MCHC (RBC) [Mass/Vol] 33.5 g/dL Normal 32-36 [facility] Comment on above: Performed By: #### Dru SHEA, CMP, ####[facility] ([id number])[address] [address] [place] [address] MCV (RBC) [Entitic vol] 90 fL Normal 80-100 [facility] Comment on above: Performed By: #### C BCA, CMP, ####[facility] ([id number])[address] [address] [place] [address] Monocytes (Bld) [#/Vol] 0.8 10*3/uL Normal 0-0.9 [facility] Comment on above: Performed By: #### Dru BCA, CMP, ####[facility] ([id number])[address], [place] [address] Monocytes/100 WBC (Bld) 8.5 % Normal [facility] Comment on above: Performed By: #### Dru SHEA CMP, 74649-6 ####[facility] ([id number])[address], [place] [address] Neutrophils/100 WBC (Bld) 80.9 % Normal [facility] Comment on above: Performed By: #### C MONSE CMP, ####[facility] ([id number])[address], [place] [address] Platelet mean volume (Bld) [Entitic vol] 10.2 fL Normal 7-12 [facility] Comment on above: Performed By: #### Dru SHEA CMP, ####[facility] ([id number])[address], [place] [address] Platelets (Bld) [#/Vol] 128 10*3/uL Low 150-450 [facility] Comment on above: Performed By: #### Dru SHEA CMP, ####[facility] ([id number])[address], [place] [address] RBC COUNT 2.91 X10E12/L Low 3.80-5.20 [facility] Comment on above: Performed By: #### Dru SHEA CMP, ####[facility] ([id number])[address], [place] [address] WBC (Bld) [#/Vol] 9.7 10*3/uL Normal 4.0-11.0 [facility] Comment on above: Performed By: #### Dru SHEA, CMP, ####[facility] ([id number])[address], [place] [address] COMPREHENSIVE METABOLIC PANE Elver 12-02-2023 Albumin [Mass/Vol] 3.0 g/dL Low 3.2-5.3 [facility] Comment on above: Performed By: #### C MONSE CMP, ####[facility] ([id number])[address], [place] [address] ALP [Catalytic activity/Vol] 154 U/L High 39-130 [facility] Comment on above: Performed By: #### C MONSE, CMP, ####[facility] ([id number])[address], [place] [address] ALT [Catalytic activity/Vol] 38 U/L High 0-31 [facility] Comment on above: Performed By: #### C MONSE, CMP, ####[facility] ([id number])[address], [place] [address] Anion gap [Moles/Vol] 11 mmol/L Normal 5-15 [facility] Comment on above: Performed By: #### C MONSE, CMP, ####[facility] ([id number])[address], [place] [address] AST [Catalytic activity/Vol] 38 U/L Normal 0-41 [facility] Comment on above: Performed By: #### C MONSE CMP, ####[facility] ([id number])[address], [place] [address] Bilirubin [Mass/Vol] 0.7 mg/dL Normal 0.3-1.2 [facility] Comment on above: Performed By: #### C MONSE, CMP, ####[facility] ([id number])[address], [place] [address] Calcium [Mass/Vol] 7.6 mg/dL Low 8.5-10.5 [facility] Comment on above: Performed By: #### C MONSE [facility], ####[facility] ([id number])[address] [address] Chloride [Moles/Vol] 102 mmol/L Normal 98-109 [facility] Comment on above: Performed By: #### C [facility], [facility], ####[facility] ([id number])[address], [address], [place] [address] CO2 [Moles/Vol] 24 mmol/L Normal 22-32 [facility] Comment on above: Performed By: #### C MONSE [facility], ####[facility] ([id number])[address] [address] Creatinine [Mass/Vol] 1.18 mg/dL High 0.40-1.00 [facility] Comment on above: Result Comment: METH OD TRACEABLE TO IDMS STANDARD Performed By: #### C MONSE [facility], ####[facility] ([id number])[address] [address] [address] GFR/1.73 sq M.predicted among non-blacks MDRD (S/P/Bld) [Vol rate/Area] 51 mL/min/{1.73_m2} Low >59 [facility] Comment on above: Result Comment: Repo rted eGFR is based on theCKD-EPI 2020 equation that doesnot use a race coefficient. Performed By: #### C [facility], [facility], ####[facility] ([id number])[address], [address] [place] [address] Glucose [Mass/Vol] 223 mg/dL High 65-99 [facility] Comment on above: Performed By: #### C BCA, CMP, ####[facility] ([id number])[address] [address] [place] [address] Potassium [Moles/Vol] 3.5 mmol/L Normal 3.5-5.0 [facility] Comment on above: Performed By: #### C TOO SHEA, ####[facility] ([id number])[address], [address], [place] [address] Protein [Mass/Vol] 6.4 g/dL Normal 6.0-8.0 [facility] Comment on above: Performed By: #### C TOO SHEA, ####[facility] ([id number])[address], [address], [place] [address] Sodium [Moles/Vol] 137 mmol/L Normal 134-146 [facility] Comment on above: Performed By: #### Dru SHEA CMP, ####[facility] ([id number])[address], [address] [place] [address] Urea nitrogen [Mass/Vol] 38 mg/dL High 5-27 [facility] Comment on above: Performed By: #### Dru SHEA CMP, ####[facility] ([id number])[address], [address] [place] [address] Glucose Glucometer (BldC) [M ass/Vol]on 12-02-2023 Glucose [Mass/Vol] 297 mg/dL High 65-99 [facility] Glucose [Mass/Vol] 313 mg/dL High 65-99 [facility] Glucose [Mass/Vol] 263 mg/dL High 65-99 [facility] Glucose [Mass/Vol] 235 mg/dL High 65-99 [facility] Glucose [Mass/Vol] 193 mg/dL High 65-99 [facility] MAGNESIUMon 12-02-2023 Magnesium [Mass/Vol] 1.9 mg/dL Normal 1.8-2.6 [facility] Comment on above: Performed By: #### C BCA, CMP, ####[facility] ([id number])[address], [address] [place] [address] Magnesium Ionized ISE (Bld) [Moles/Vol]on 12-02-2023 Magnesium [Moles/Vol] 0.60 mmol/L Normal 0.45-0.74 [facility] Comment on above: Result Comment: NEW REFERENCE RANGE Performed By: #### 7 3572-0 ####[facility] ([id number])[address], [address] [place] [address] CBC AND AUTO DIFFon 12-01-19 ABSOLUTE BASOPHIL 0.1 X10E9/L Normal 0.0-0.2 [facility] Comment on above: Performed By: #### C MONSE, CMP, 43031-9 ####[facility] ([id number])[address] [address] [place] [address] ABSOLUTE NEUTROPHIL 7.8 X10E9/L High 1.5-6.6 [facility] Comment on above: Performed By: #### C BCA, CMP, ####[facility] ([id number])[address] [address] [place] [address] Basophils/100 WBC (Bld) 0.7 % Normal [facility] Comment on above: Performed By: #### C BCA, CMP, ####[facility] ([id number])[address] [address] [place] [address] Eosinophils (Bld) [#/Vol] 0.1 10*3/uL Normal 0.0-0.4 [facility] Comment on above: Performed By: #### C BCA, CMP, ####[facility] ([id number])[address] [address] [place] [address] Eosinophils/100 WBC (Bld) 1.1 % Normal [facility] Comment on above: Performed By: #### C BCA, CMP, ####[facility] ([id number])[address], [address], [place] [address] Erythrocyte distribution width (RBC) [Ratio] 19.6 % High 11.5-15.0 [facility] Comment on above: Performed By: #### C MONSE, CMP, ####[facility] ([id number])[address], [address], [place] [address] Hematocrit (Bld) [Volume fraction] 25.1 % Low 35-47 [facility] Comment on above: Performed By: #### C MONSE, CMP, ####[facility] ([id number])[address], [address], [place] [address] Hemoglobin (Bld) [Mass/Vol] 8.6 g/dL Low 11.7-15.5 [facility] Comment on above: Performed By: #### Dru SHEA, CMP, ####[facility] ([id number])[address] [address], [place] [address] Lymphocytes (Bld) [#/Vol] 1.3 10*3/uL Normal 1.0-3.5 [facility] Comment on above: Performed By: #### Dru SHEA, CMP, ####[facility] ([id number])[address] [address] [place] [address] Lymphocytes/100 WBC (Bld) 12.6 % Normal [facility] Comment on above: Performed By: #### C MONSE, CMP, ####[facility] ([id number])[address] [address] MCH (RBC) [Entitic mass] 30.2 pg Normal 27-34 [facility] Comment on above: Performed By: #### Dru SHEA, CMP, ####[facility] ([id number])[address], [address], [place] [address] MCHC (RBC) [Mass/Vol] 34.0 g/dL Normal 32-36 [facility] Comment on above: Performed By: #### Dru SHEA, CMP, ####[facility] ([id number])[address], [address], [place] [address] MCV (RBC) [Entitic vol] 89 fL Normal 80-100 [facility] Comment on above: Performed By: #### Dru SHEA, CMP, ####[facility] ([id number])[address], [address], [place] [address] Monocytes (Bld) [#/Vol] 1.0 10*3/uL High 0-0.9 [facility] Comment on above: Performed By: #### Dru SHEA, CMP, ####[facility] ([id number])[address], [address], [place] [address] Monocytes/100 WBC (Bld) 9.5 % Normal [facility] Comment on above: Performed By: #### Dru SHEA, CMP, ####[facility] ([id number])[address], [address], [place] [address] Neutrophils/100 WBC (Bld) 76.1 % Normal [facility] Comment on above: Performed By: #### Dru SHEA, CMP, ####[facility] ([id number])[address], [address], [place] [address] Platelet mean volume (Bld) [Entitic vol] 10.5 fL Normal 7-12 [facility] Comment on above: Performed By: #### Dru BCA, CMP, ####[facility] ([id number])[address], [address], [place] [address] Platelets (Bld) [#/Vol] 121 10*3/uL Low 150-450 [facility] Comment on above: Performed By: #### C TOO SHEA, 46257-5 ####[facility] ([id number])[address], [address] [address] RBC COUNT 2.83 X10E12/L Low 3.80-5.20 [facility] Comment on above: Performed By: #### C MONSE CMP, ####[facility] ([id number])[address], [address], [place] [address] WBC (Bld) [#/Vol] 10.2 10*3/uL Normal 4.0-11.0 [facility] Comment on above: Performed By: #### Dru SHEA CMP, 92833-6 ####[facility] ([id number])[address], [address] [address] COMPREHENSIVE METABOLIC PANE Elver 12-01-2023 Albumin [Mass/Vol] 3.0 g/dL Low 3.2-5.3 [facility] Comment on above: Performed By: #### C MONSE CMP, 43952-5 ####[facility] ([id number])[address], [address] [address] ALP [Catalytic activity/Vol] 153 U/L High 39-130 [facility] Comment on above: Performed By: #### C MONSE, CMP, 94474-0 ####[facility] ([id number])[address], [address] [address] ALT [Catalytic activity/Vol] 36 U/L High 0-31 [facility] Comment on above: Performed By: #### C BCA, CMP, 53584-5 ####[facility] ([id number])[address], [address] [address] Anion gap [Moles/Vol] 12 mmol/L Normal 5-15 [facility] Comment on above: Performed By: #### C BCA, CMP, ####[facility] ([id number])[address], [place] [address] AST [Catalytic activity/Vol] 35 U/L Normal 0-41 [facility] Comment on above: Performed By: #### C BCA, CMP, ####[facility] ([id number])[address], [address], [place] [address] Bilirubin [Mass/Vol] 0.6 mg/dL Normal 0.3-1.2 [facility] Comment on above: Performed By: #### C BCA, CMP, ####[facility] ([id number])[address], [address], [place] [address] Calcium [Mass/Vol] 8.1 mg/dL Low 8.5-10.5 [facility] Comment on above: Performed By: #### C BCA, CMP, ####[facility] ([id number])[address], [address], [place] [address] Chloride [Moles/Vol] 101 mmol/L Normal 98-109 [facility] Comment on above: Performed By: #### C BCA, CMP, ####[facility] ([id number])[address], [address], [place] [address] CO2 [Moles/Vol] 23 mmol/L Normal 22-32 [facility] Comment on above: Performed By: #### C BCA, CMP, ####[facility] ([id number])[address], [address], [place] [address] Creatinine [Mass/Vol] 1.14 mg/dL High 0.40-1.00 [facility] Comment on above: Result Comment: METH OD TRACEABLE TO IDMS STANDARD Performed By: #### C MONSE [facility], ####[facility] ([id number])[address] [address] [address] GFR/1.73 sq M.predicted among non-blacks MDRD (S/P/Bld) [Vol rate/Area] 53 mL/min/{1.73_m2} Low >59 [facility] Comment on above: Result Comment: Repo rted eGFR is based on theCKD-EPI 2020 equation that doesnot use a race coefficient. Performed By: #### C MONSE [facility], ####[facility] ([id number])[address] [address] [address] Glucose [Mass/Vol] 151 mg/dL High 65-99 [facility] Comment on above: Performed By: #### C MONSE [facility], ####[facility] ([id number])[address] [address] [address] Potassium [Moles/Vol] 3.5 mmol/L Normal 3.5-5.0 [facility] Comment on above: Performed By: #### C MONSE [facility], ####[facility] ([id number])[address] [address] [address] Protein [Mass/Vol] 6.4 g/dL Normal 6.0-8.0 [facility] Comment on above: Performed By: #### C MONSE [facility], ####[facility] ([id number])[address] [address] [address] Sodium [Moles/Vol] 136 mmol/L Normal 134-146 [facility] Comment on above: Performed By: #### C MONSE [facility], ####[facility] ([id number])[address] [address] [address] Urea nitrogen [Mass/Vol] 50 mg/dL High 5-27 [facility] Comment on above: Performed By: #### C BCA, CMP, ####[facility] ([id number])[address], [address] [address] Glucose Glucometer (BldC) [M ass/Vol]on 12-01-2023 Glucose [Mass/Vol] 193 mg/dL High 65-99 [facility] Glucose [Mass/Vol] 182 mg/dL High 65-99 [facility] Glucose [Mass/Vol] 154 mg/dL High 65-99 [facility] Glucose [Mass/Vol] 204 mg/dL High 65-99 [facility] HGB AND HCTon 12-01-2023 Hematocrit (Bld) [Volume fraction] 25.7 % Low 35-47 [facility] Comment on above: Performed By: #### H H ####[facility] ([id number])[address], [address] [place] [address] Hemoglobin (Bld) [Mass/Vol] 8.7 g/dL Low 11.7-15.5 [facility] Comment on above: Performed By: #### H H ####[facility] ([id number])[address], [address] [place] [address] MAGNESIUMon 12-01-2023 Magnesium [Mass/Vol] 2.3 mg/dL Normal 1.8-2.6 [facility] Comment on above: Performed By: #### C BCA, CMP, ####[facility] ([id number])[address], [address] [place] [address] CBC AND AUTO DIFFon 11-30-19 24 ABSOLUTE BASOPHIL 0.1 X10E9/L Normal 0.0-0.2 [facility] Comment on above: Performed By: #### C BCA, CMP, , 50696-2 ####[facility] ([id number])[address], [address] [address] ABSOLUTE NEUTROPHIL 9.1 X10E9/L High 1.5-6.6 [facility] Comment on above: Performed By: #### C BCA, CMP, 20858-6, 85550-5 ####[facility] ([id number])[address], [address], [place] [address] Basophils/100 WBC (Bld) 0.9 % Normal [facility] Comment on above: Performed By: #### C BCA, CMP, , 04040-8 ####[facility] ([id number])[address], [address], [place] [address] Eosinophils (Bld) [#/Vol] 0.1 10*3/uL Normal 0.0-0.4 [facility] Comment on above: Performed By: #### C BCA, CMP, , 73474-1 ####[facility] ([id number])[address], [address], [place] [address] Eosinophils/100 WBC (Bld) 0.8 % Normal [facility] Comment on above: Performed By: #### C BCA, CMP, , 30509-3 ####[facility] ([id number])[address], [address], [place] [address] Erythrocyte distribution width (RBC) [Ratio] 19.3 % High 11.5-15.0 [facility] Comment on above: Performed By: #### C BCA, CMP, , 39528-1 ####[facility] ([id number])[address], [address], [place] [address] Hematocrit (Bld) [Volume fraction] 24.4 % Low 35-47 [facility] Comment on above: Performed By: #### C BCA, CMP, , 11341-9 ####[facility] ([id number])[address], [address] [address] Hemoglobin (Bld) [Mass/Vol] 8.2 g/dL Low 11.7-15.5 [facility] Comment on above: Performed By: #### C BCA, CMP, , 74612-3 ####[facility] ([id number])[address], [address] [address] Lymphocytes (Bld) [#/Vol] 1.3 10*3/uL Normal 1.0-3.5 [facility] Comment on above: Performed By: #### C BCA, CMP, , 40813-7 ####[facility] ([id number])[address], [address] [address] Lymphocytes/100 WBC (Bld) 11.3 % Normal [facility] Comment on above: Performed By: #### C BCA, CMP, , 76217-1 ####[facility] ([id number])[address] [address] MCH (RBC) [Entitic mass] 30.0 pg Normal 27-34 [facility] Comment on above: Performed By: #### C BCA, CMP, , 55956-2 ####[facility] ([id number])[address] [address] MCHC (RBC) [Mass/Vol] 33.7 g/dL Normal 32-36 [facility] Comment on above: Performed By: #### C BCA, CMP, , 51034-4 ####[facility] ([id number])[address] [address] MCV (RBC) [Entitic vol] 89 fL Normal 80-100 [facility] Comment on above: Performed By: #### C BCA, CMP, , 43719-9 ####[facility] ([id number])[address], [address], [place] [address] Monocytes (Bld) [#/Vol] 1.0 10*3/uL High 0-0.9 [facility] Comment on above: Performed By: #### C BCA, CMP, , 40260-9 ####[facility] ([id number])[address], [address], [place] [address] Monocytes/100 WBC (Bld) 8.4 % Normal [facility] Comment on above: Performed By: #### C BCA, CMP, , 63580-6 ####[facility] ([id number])[address], [address], [place] [address] Neutrophils/100 WBC (Bld) 78.6 % Normal [facility] Comment on above: Performed By: #### C BCA, CMP, , 97725-6 ####[facility] ([id number])[address], [address], [place] [address] Platelet mean volume (Bld) [Entitic vol] 10.6 fL Normal 7-12 [facility] Comment on above: Performed By: #### C BCA, CMP, , 32017-4 ####[facility] ([id number])[address], [address], [place] [address] Platelets (Bld) [#/Vol] 114 10*3/uL Low 150-450 [facility] Comment on above: Performed By: #### C BCA, CMP, , 35763-9 ####[facility] ([id number])[address], [address], [place] [address] RBC COUNT 2.74 X10E12/L Low 3.80-5.20 [facility] Comment on above: Performed By: #### C BCA, CMP, , 30941-0 ####[facility] ([id number])[address], [address] [address] WBC (Bld) [#/Vol] 11.6 10*3/uL High 4.0-11.0 [facility] Comment on above: Performed By: #### C BCA, CMP, 45353-9, 58872-5 ####[facility] ([id number])[address] [address] COMPREHENSIVE METABOLIC PANE Elver 11-30-2023 Albumin [Mass/Vol] 3.0 g/dL Low 3.2-5.3 [facility] Comment on above: Performed By: #### C BCA, CMP, , 73731-9 ####[facility] ([id number])[address], [address] [address] ALP [Catalytic activity/Vol] 133 U/L High 39-130 [facility] Comment on above: Performed By: #### C BCA, CMP, 95857-1, 05426-2 ####[facility] ([id number])[address] [address] ALT [Catalytic activity/Vol] 31 U/L Normal 0-31 [facility] Comment on above: Performed By: #### C BCA, CMP, 48269-6, 94378-5 ####[facility] ([id number])[address] [address] Anion gap [Moles/Vol] 10 mmol/L Normal 5-15 [facility] Comment on above: Performed By: #### C BCA, CMP, , 08080-6 ####[facility] ([id number])[address] [address] AST [Catalytic activity/Vol] 39 U/L Normal 0-41 [facility] Comment on above: Performed By: #### C BCA, CMP, , 64327-7 ####[facility] ([id number])[address], [address], [place] [address] Bilirubin [Mass/Vol] 0.6 mg/dL Normal 0.3-1.2 [facility] Comment on above: Performed By: #### C BCA, CMP, , 12255-2 ####[facility] ([id number])[address], [address], [place] [address] Calcium [Mass/Vol] 7.5 mg/dL Low 8.5-10.5 [facility] Comment on above: Performed By: #### C BCA, CMP, , 13783-5 ####[facility] ([id number])[address], [address], [place] [address] Chloride [Moles/Vol] 102 mmol/L Normal 98-109 [facility] Comment on above: Performed By: #### C BCA, CMP, , 88002-4 ####[facility] ([id number])[address] [address], [place] [address] CO2 [Moles/Vol] 23 mmol/L Normal 22-32 [facility] Comment on above: Performed By: #### C BCA, CMP, , 10284-6 ####[facility] ([id number])[address] [address], [place] [address] Creatinine [Mass/Vol] 1.19 mg/dL High 0.40-1.00 [facility] Comment on above: Result Comment: METH OD TRACEABLE TO IDMS STANDARD Performed By: #### C BCA, CMP, , 03810-4 ####[facility] ([id number])[address], [place] [address] GFR/1.73 sq M.predicted among non-blacks MDRD (S/P/Bld) [Vol rate/Area] 50 mL/min/{1.73_m2} Low >59 [facility] Comment on above: Result Comment: Repo rted eGFR is based on theCKD-EPI 2020 equation that doesnot use a race coefficient. Performed By: #### C BCA, CMP, , 39311-7 ####[facility] ([id number])[address], [place] [address] Glucose [Mass/Vol] 173 mg/dL High 65-99 [facility] Comment on above: Performed By: #### C BCA, CMP, , 81087-0 ####[facility] ([id number])[address], [place] [address] Potassium [Moles/Vol] 3.5 mmol/L Normal 3.5-5.0 [facility] Comment on above: Performed By: #### C BCA, CMP, , 93957-0 ####[facility] ([id number])[address], [address], [place] [address] Protein [Mass/Vol] 5.8 g/dL Low 6.0-8.0 [facility] Comment on above: Performed By: #### C BCA, CMP, , 52374-4 ####[facility] ([id number])[address], [address], [place] [address] Sodium [Moles/Vol] 135 mmol/L Normal 134-146 [facility] Comment on above: Performed By: #### C BCA, CMP, , 64647-2 ####[facility] ([id number])[address], [address], [place] [address] Urea nitrogen [Mass/Vol] 55 mg/dL High 5-27 [facility] Comment on above: Performed By: #### C BCA, CMP, , 81154-3 ####[facility] ([id number])[address] [address] [place] [address] Calcium.ionized (Bld) [Mass/ Vol]on 11-30-2023 IONIZED CALCIUM 4.3 mg/dL Low 4.5-5.3 [facility] Comment on above: Performed By: #### 3 8230-9 ####[facility] ([id number])[address] [address] FL SWALLOW MOTILITY FUNCTION on 11-30-2023 FL SWALLOW MOTILITY FUNCTION Normal [facility] Glucose Glucometer (dC) [M ass/Vol]on 11-30-2023 Glucose [Mass/Vol] 177 mg/dL High 65-99 [facility] Glucose [Mass/Vol] 262 mg/dL High 65-99 [facility] Glucose [Mass/Vol] 182 mg/dL High 65-99 [facility] Glucose [Mass/Vol] 204 mg/dL High 65-99 [facility] MAGNESIUMon 11-30-2023 Magnesium [Mass/Vol] 1.9 mg/dL Normal 1.8-2.6 [facility] Comment on above: Performed By: #### C BCA, CMP, , 14853-8 ####[facility] ([id number])[address] [address] MRSA PCR NASALon 11-30-2023 MRSA DNA CHELLY+probe Ql (Unsp spec) Negative Normal NEG [facility] Comment on above: Performed By: #### 3 5492-8 ####[facility] ([id number])[address] [address] Natriuretic peptide B [Mass/ Vol]on 11-30-2023 Natriuretic peptide B (Bld) [Mass/Vol] 434 pg/mL High <100.0 [facility] Comment on above: Performed By: #### C BCA, CMP, , 27002-7 ####[facility] ([id number])[address] [address] XR CHEST 1 VWon 11-30-2023 XR CHEST 1 VW Normal [facility] CBC AND AUTO DIFFon 11-29-19 24 ABSOLUTE BASOPHIL 0.0 X10E9/L Normal 0.0-0.2 [facility] Comment on above: Performed By: #### C BCA, CMP, , 82752-0 ####[facility] ([id number])[address], [address], [place] [address] ABSOLUTE NEUTROPHIL 11.9 X10E9/L High 1.5-6.6 [facility] Comment on above: Performed By: #### C BCA, CMP, , 86820-6 ####[facility] ([id number])[address], [address], [place] [address] Basophils/100 WBC (Bld) 0.3 % Normal [facility] Comment on above: Performed By: #### rDu BCA, CMP, , 12732-6 ####[facility] ([id number])[address], [address] [place] [address] Eosinophils (Bld) [#/Vol] 0.0 10*3/uL Normal 0.0-0.4 [facility] Comment on above: Performed By: #### C BCA, CMP, , 10528-1 ####[facility] ([id number])[address], [address], [place] [address] Eosinophils/100 WBC (Bld) 0.0 % Normal [facility] Comment on above: Performed By: #### C BCA, CMP, , 33559-3 ####[facility] ([id number])[address], [address] [place] [address], [place] [address] Erythrocyte distribution width (RBC) [Ratio] 19.2 % High 11.5-15.0 [facility] Comment on above: Performed By: #### C MONSE CMP, 55020-5, 11389-4 ####[facility] ([id number])[address] [address] [place] [address] Hematocrit (Bld) [Volume fraction] 25.0 % Low 35-47 [facility] Comment on above: Performed By: #### Dru SHEA, CMP, 03138-0, 10859-7 ####[facility] ([id number])[address] [address] Hemoglobin (Bld) [Mass/Vol] 8.3 g/dL Low 11.7-15.5 [facility] Comment on above: Performed By: #### Dru SHEA, CMP, 93658-9, 00354-5 ####[facility] ([id number])[address] [address] Lymphocytes (Bld) [#/Vol] 1.0 10*3/uL Normal 1.0-3.5 [facility] Comment on above: Performed By: #### Dru SHEA, CMP, , 93361-1 ####[facility] ([id number])[address] [address] Lymphocytes/100 WBC (Bld) 7.6 % Normal [facility] Comment on above: Performed By: #### C BCA, CMP, 95145-4, 55659-7 ####[facility] ([id number])[address] [address] MCH (RBC) [Entitic mass] 29.6 pg Normal 27-34 [facility] Comment on above: Performed By: #### Dru BCA, CMP, 03061-2, 70284-3 ####[facility] ([id number])[address], [address] [address] MCHC (RBC) [Mass/Vol] 33.1 g/dL Normal 32-36 [facility] Comment on above: Performed By: #### Dru BCA, CMP, 87107-5, 87273-0 ####[facility] ([id number])[address], [address], [place] [address] MCV (RBC) [Entitic vol] 89 fL Normal 80-100 [facility] Comment on above: Performed By: #### C BCA, CMP, 53434-2, 76219-3 ####[facility] ([id number])[address], [address] [place] [address] Monocytes (Bld) [#/Vol] 0.8 10*3/uL Normal 0-0.9 [facility] Comment on above: Performed By: #### Dru BCA, CMP, , 08418-5 ####[facility] ([id number])[address] [address] [place] [address] Monocytes/100 WBC (Bld) 6.1 % Normal [facility] Comment on above: Performed By: #### Dru BCA, CMP, 31199-3, 65255-2 ####[facility] ([id number])[address] [address] [place] [address]34 Neutrophils/100 WBC (Bld) 86.0 % Normal [facility] Comment on above: Performed By: #### C BCA, CMP, 71069-5, 68248-1 ####[facility] ([id number])[address] [address] [place] [address] 11736 Platelet mean volume (Bld) [Entitic vol] 11.1 fL Normal 7-12 [facility] Comment on above: Performed By: #### Dru BCA, CMP, 39436-2, 63540-8 ####[facility] ([id number])[address], [address], [place] [address] Platelets (Bld) [#/Vol] 113 10*3/uL Low 150-450 [facility] Comment on above: Performed By: #### C BCA, CMP, 52241-9, 08610-4 ####[facility] ([id number])[address], [address], [place] [address] RBC COUNT 2.80 X10E12/L Low 3.80-5.20 [facility] Comment on above: Performed By: #### C BCA, CMP, 55432-6, 58664-5 ####[facility] ([id number])[address] [address] [place] [address] 32773 WBC (Bld) [#/Vol] 13.8 10*3/uL High 4.0-11.0 [facility] Comment on above: Performed By: #### C BCA, CMP, , 72436-3 ####[facility] ([id number])[address], [address] [address] COMPREHENSIVE METABOLIC PANE Elver 11-29-2023 Albumin [Mass/Vol] 2.9 g/dL Low 3.2-5.3 [facility] Comment on above: Performed By: #### C BCA, CMP, , 03395-1 ####[facility] ([id number])[address], [address], [place] [address] ALP [Catalytic activity/Vol] 127 U/L Normal 39-130 [facility] Comment on above: Performed By: #### C BCA, CMP, 77995-9, 02164-7 ####[facility] ([id number])[address], [address] [place] [address], [place] [address] ALT [Catalytic activity/Vol] 22 U/L Normal 0-31 [facility] Comment on above: Performed By: #### C BCA, CMP, , 41833-0 ####[facility] ([id number])[address], [address], [place] [address] Anion gap [Moles/Vol] 10 mmol/L Normal 5-15 [facility] Comment on above: Performed By: #### C BCA, CMP, , 48830-8 ####[facility] ([id number])[address], [address], [place] [address] AST [Catalytic activity/Vol] 20 U/L Normal 0-41 [facility] Comment on above: Performed By: #### C BCA, CMP, , 60627-2 ####[facility] ([id number])[address], [address], [place] [address] Bilirubin [Mass/Vol] 0.6 mg/dL Normal 0.3-1.2 [facility] Comment on above: Performed By: #### C BCA, CMP, , 22338-8 ####[facility] ([id number])[address], [address], [place] [address] Calcium [Mass/Vol] 7.7 mg/dL Low 8.5-10.5 [facility] Comment on above: Performed By: #### C BCA, CMP, , 80087-3 ####[facility] ([id number])[address], [address], [place] [address] Chloride [Moles/Vol] 102 mmol/L Normal 98-109 [facility] Comment on above: Performed By: #### C BCA, CMP, , 16005-7 ####[facility] ([id number])[address], [address], [place] [address] CO2 [Moles/Vol] 23 mmol/L Normal 22-32 [facility] Comment on above: Performed By: #### C BCA, CMP, , 27494-4 ####[facility] ([id number])[address] [address], [place] [address] Creatinine [Mass/Vol] 1.22 mg/dL High 0.40-1.00 [facility] Comment on above: Result Comment: METH OD TRACEABLE TO IDMS STANDARD Performed By: #### C BCA CMP, , 50279-2 ####[facility] ([id number])[address] [address], [place] [address] GFR/1.73 sq M.predicted among non-blacks MDRD (S/P/Bld) [Vol rate/Area] 49 mL/min/{1.73_m2} Low >59 [facility] Comment on above: Result Comment: Repo rted eGFR is based on theCKD-EPI 2020 equation that doesnot use a race coefficient. Performed By: #### C BCA, [facility], , 59208-1 ####[facility] ([id number])[address] [address] Glucose [Mass/Vol] 231 mg/dL High 65-99 [facility] Comment on above: Performed By: #### C MONSE CMP, , 25128-2 ####[facility] ([id number])[address] [address] [address] Potassium [Moles/Vol] 4.2 mmol/L Normal 3.5-5.0 [facility] Comment on above: Performed By: #### C BCA, CMP, , 11372-5 ####[facility] ([id number])[address] [address] Protein [Mass/Vol] 6.2 g/dL Normal 6.0-8.0 [facility] Comment on above: Performed By: #### C BCA CMP, , 62194-5 ####[facility] ([id number])[address], [address], [place] [address] Sodium [Moles/Vol] 135 mmol/L Normal 134-146 [facility] Comment on above: Performed By: #### C MONSE [facility], 47866-2, 86930-8 ####[facility] ([id number])[address], [address] [place] [address]185 Urea nitrogen [Mass/Vol] 61 mg/dL High 5-27 [facility] Comment on above: Performed By: #### Dru MONSE [facility], , 47486-1 ####[facility] ([id number])[address], [address] [place] [address] Glucose Glucometer (BldC) [M ass/Vol]on 11-29-2023 Glucose [Mass/Vol] 180 mg/dL High 65-99 [facility] Glucose [Mass/Vol] 145 mg/dL High 65-99 [facility] Glucose [Mass/Vol] 233 mg/dL High 65-99 [facility] Glucose [Mass/Vol] 354 mg/dL High 65-99 [facility] MAGNESIUMon 11-29-2023 Magnesium [Mass/Vol] 1.9 mg/dL Normal 1.8-2.6 [facility] Comment on above: Performed By: #### Dru SHEA [facility], , 27652-4 ####[facility] ([id number])[address], [address] [place] [address] Procalcitonin IA [Mass/Vol]o n 11-29-2023 PROCALCITONIN 0.52 ng/mL High <0.05 [facility] Comment on above: Result Comment: NOTE <0.50 ng/mL - Low risk of severe sepsis and/or septic shock.<2.00 ng/mL - Recommend retesting within 6-24 hours.>2.00 ng/mL - High risk of sepsis and/or septic shock. Performed By: #### C MONSE, CMP, , 68149-7 ####[facility] ([id number])[address], [address] [place] [address] 33184 XR CHEST 1 VWon 11-29-2023 XR CHEST 1 VW Normal [facility] CBC AND AUTO DIFFon 11-28-19 ABSOLUTE BASOPHIL 0.1 X10E9/L Normal 0.0-0.2 [facility] Comment on above: Performed By: #### C MONSE, CMP, ####[facility] ([id number])[address], [address] [place] [address] ABSOLUTE NEUTROPHIL 9.3 X10E9/L High 1.5-6.6 [facility] Comment on above: Performed By: #### Dru SHEA CMP, ####[facility] ([id number])[address], [address], [place] [address] Basophils/100 WBC (Bld) 0.8 % Normal [facility] Comment on above: Performed By: #### Dru SHEA, CMP, ####[facility] ([id number])[address] [address] [place] [address] Eosinophils (Bld) [#/Vol] 0.3 10*3/uL Normal 0.0-0.4 [facility] Comment on above: Performed By: #### Dru SHEA, CMP, ####[facility] ([id number])[address], [address] [place] [address] 33205 Eosinophils/100 WBC (Bld) 2.2 % Normal [facility] Comment on above: Performed By: #### Dru SHEA, CMP, ####[facility] ([id number])[address], [address] [place] [address] Erythrocyte distribution width (RBC) [Ratio] 19.9 % High 11.5-15.0 [facility] Comment on above: Performed By: #### Dru SHEA CMP, ####[facility] ([id number])[address], [address], [place] [address] Hematocrit (Bld) [Volume fraction] 27.1 % Low 35-47 [facility] Comment on above: Performed By: #### Dru SHEA CMP, ####[facility] ([id number])[address], [address], [place] [address] Hemoglobin (Bld) [Mass/Vol] 8.9 g/dL Low 11.7-15.5 [facility] Comment on above: Performed By: #### Dru SHEA CMP, ####[facility] ([id number])[address], [address], [place] [address] Lymphocytes (Bld) [#/Vol] 1.3 10*3/uL Normal 1.0-3.5 [facility] Comment on above: Performed By: #### Dru SHEA CMP, ####[facility] ([id number])[address] [address] [address] Lymphocytes/100 WBC (Bld) 10.7 % Normal [facility] Comment on above: Performed By: #### Dru SHEA CMP, ####[facility] ([id number])[address], [address], [place] [address] MCH (RBC) [Entitic mass] 29.7 pg Normal 27-34 [facility] Comment on above: Performed By: #### Dru SHEA CMP, ####[facility] ([id number])[address], [address], [place] [address] MCHC (RBC) [Mass/Vol] 32.9 g/dL Normal 32-36 [facility] Comment on above: Performed By: #### C BCA, CMP, ####[facility] ([id number])[address], [address] [address] MCV (RBC) [Entitic vol] 90 fL Normal 80-100 [facility] Comment on above: Performed By: #### C BCA, CMP, ####[facility] ([id number])[address], [address] [address] Monocytes (Bld) [#/Vol] 1.2 10*3/uL High 0-0.9 [facility] Comment on above: Performed By: #### C BCA, CMP, ####[facility] ([id number])[address], [place] [address] Monocytes/100 WBC (Bld) 10.0 % Normal [facility] Comment on above: Performed By: #### Dru BCA, CMP, ####[facility] ([id number])[address] [address] Neutrophils/100 WBC (Bld) 76.3 % Normal [facility] Comment on above: Performed By: #### Dru BCA, CMP, ####[facility] ([id number])[address] [address] Platelet mean volume (Bld) [Entitic vol] 10.3 fL Normal 7-12 [facility] Comment on above: Performed By: #### C BCA, CMP, ####[facility] ([id number])[address] [address] Platelets (Bld) [#/Vol] 110 10*3/uL Low 150-450 [facility] Comment on above: Performed By: #### C BCA, CMP, ####[facility] ([id number])[address], [address], [place] [address] RBC COUNT 3.00 X10E12/L Low 3.80-5.20 [facility] Comment on above: Performed By: #### C BCA, CMP, 76943-6 ####[facility] ([id number])[address], [address] [place] [address] WBC (Bld) [#/Vol] 12.2 10*3/uL High 4.0-11.0 [facility] Comment on above: Performed By: #### C BCA, CMP, 01242-1 ####[facility] ([id number])[address] [address] COMPREHENSIVE METABOLIC PANE Elver 11-28-2023 Albumin [Mass/Vol] 3.1 g/dL Low 3.2-5.3 [facility] Comment on above: Performed By: #### C BCA, CMP, ####[facility] ([id number])[address], [address], [place] [address] ALP [Catalytic activity/Vol] 126 U/L Normal 39-130 [facility] Comment on above: Performed By: #### C BCA, CMP, 03345-0 ####[facility] ([id number])[address] [address] [place] [address] ALT [Catalytic activity/Vol] 23 U/L Normal 0-31 [facility] Comment on above: Performed By: #### C BCA, CMP, ####[facility] ([id number])[address] [address] [place] [address] Anion gap [Moles/Vol] 11 mmol/L Normal 5-15 [facility] Comment on above: Performed By: #### C BCA, CMP, ####[facility] ([id number])[address], [address], [place] [address] AST [Catalytic activity/Vol] 26 U/L Normal 0-41 [facility] Comment on above: Performed By: #### C BCA, CMP, ####[facility] ([id number])[address], [address], [place] [address] Bilirubin [Mass/Vol] 0.7 mg/dL Normal 0.3-1.2 [facility] Comment on above: Performed By: #### C BCA, CMP, ####[facility] ([id number])[address], [place] [address] Calcium [Mass/Vol] 8.4 mg/dL Low 8.5-10.5 [facility] Comment on above: Performed By: #### C BCA, CMP, ####[facility] ([id number])[address], [place] [address] Chloride [Moles/Vol] 102 mmol/L Normal 98-109 [facility] Comment on above: Performed By: #### C BCA, CMP, ####[facility] ([id number])[address] [address], [place] [address] CO2 [Moles/Vol] 25 mmol/L Normal 22-32 [facility] Comment on above: Performed By: #### C BCA, CMP, ####[facility] ([id number])[address], [place] [address] Creatinine [Mass/Vol] 1.22 mg/dL High 0.40-1.00 [facility] Comment on above: Result Comment: METH OD TRACEABLE TO IDMS STANDARD Performed By: #### C BCA, CMP, ####[facility] ([id number])[address], [address], [place] [address] GFR/1.73 sq M.predicted among non-blacks MDRD (S/P/Bld) [Vol rate/Area] 49 mL/min/{1.73_m2} Low >59 [facility] Comment on above: Result Comment: Repo rted eGFR is based on theCKD-EPI 2020 equation that doesnot use a race coefficient. Performed By: #### C MONSE [facility], ####[facility] ([id number])[address] [address], [place] [address] Glucose [Mass/Vol] 167 mg/dL High 65-99 [facility] Comment on above: Performed By: #### C TOO SHEA, ####[facility] ([id number])[address] [address], [place] [address] Potassium [Moles/Vol] 4.0 mmol/L Normal 3.5-5.0 [facility] Comment on above: Performed By: #### C MONSE [facility], ####[facility] ([id number])[address] [address] [address] Protein [Mass/Vol] 6.5 g/dL Normal 6.0-8.0 [facility] Comment on above: Performed By: #### C MONSE [facility], ####[facility] ([id number])[address] [address] [address] Sodium [Moles/Vol] 138 mmol/L Normal 134-146 [facility] Comment on above: Performed By: #### C BCA CMP, ####[facility] ([id number])[address] [address] [address] Urea nitrogen [Mass/Vol] 61 mg/dL High 5-27 [facility] Comment on above: Performed By: #### C BCA, [facility], ####[facility] ([id number])[address], [address] [place] [address] Glucose Glucometer (BldC) [M ass/Vol]on 11-28-2023 Glucose [Mass/Vol] 213 mg/dL High 65-99 [facility] Glucose [Mass/Vol] 178 mg/dL High 65-99 [facility] Glucose [Mass/Vol] 196 mg/dL High 65-99 [facility] Lactate (P stan) [Moles/Vol]o n 11-28-2023 LACTATE W/REFLEX 1.1 mmol/L Normal 0.4-2.0 [facility] Comment on above: Result Comment: Resu lt did not trigger repeat Lactate,re-order if needed. Performed By: #### 3 2132-1 ####[facility] ([id number])[address] [facility], [address] [place] [address] MAGNESIUMon 11-28-2023 Magnesium [Mass/Vol] 2.0 mg/dL Normal 1.8-2.6 [facility] Comment on above: Performed By: #### C BCA, CMP, 39859-3 ####[facility] ([id number])0 [facility], [address] [place] [address] Magnesium Ionized ISE (Bld) [Moles/Vol]on 11-28-2023 Magnesium [Moles/Vol] 0.60 mmol/L Normal 0.45-0.74 [facility] Comment on above: Result Comment: NEW REFERENCE RANGE Performed By: #### 7 3572-0 ####[facility] ([id number])[address] [place] [address] Surgical Pathologyon 024 Surgical Pathology Normal [facility] Comment on above: Result Comment: [facility] [address] [place] [address] Surgical Pathology ConsultationPatient Name:HARRIS CASTREJON:1955 (Age: 68)Gender:FTaken:4Reported:4Physician(s):Mitra Crowell MD ([phone])Copy To:Varsha Sepulveda MS CGCAccession #:[id number]. Rec. #:[id number]: #[id number] Pathologic Diagnosis1. Rectal mass, biopsies: Fragments of tubulovillous adenoma.2. Rectal mass #2, excisional biopsy: Fragments of ADENOCARCINOMA, at least intramucosal carcinoma. Deeper invasion cannot be excluded.Note: This case is reviewed intradepartmentally by another pathologist who agrees with the diagnosis.CANCER CASE SUMMARYTumor Site: RectumHistologic Type: AdenocarcinomaHistologic Grade: G1, well-differentiatedTumor Extent: Invades lamina propria/muscularis mucosaeLymphovascular Invasion: Not identifiedPerineural invasion: Not identifiedTumor budding score: Cannot be determinedPolyp size: At least 1.3 cmTumor dimension: Not applicableNumber of specimen fragments: 9Margin Status for Invasive Carcinoma: Cannot be determinedMargin Status for Non-Invasive Tumor: Not applicableColon and Rectum Biomarker Reporting TemplateResults - Immunohistochemistry Testing for Mismatch Repair (MMR) ProteinsMLH1: Intact nuclear expressionMSH2: Intact nuclear expressionMSH6: Intact nuclear expressionPMS2: Intact nuclear expressionExternal and internal controls stained appropriatelyIHC InterpretationNo loss of nuclear expression of MMR proteins: low probability of microsatellite instability- High (MSI-H)There are exceptions to the above IHC interpretations. These results should not be considered in isolation, and clinical correlation with genetic counseling is recommended to assess the need for germline testing.Methods - Block: 2AFixative: Formalin (Formalin-fixed, paraffin embedded tissue)MLH1: Vendor: [employer], Primary Antibody: M1MSH2: Vendor: [employer], Primary Antibody: [id number] 6: Vendor: [employer], Primary Antibody: 44PMS2: Vendor: [employer], Primary Antibody: [id number] System: MLH1, MSH2, PMS2: [employer] OptiView DAB IHC Detection Kit (indirect biotin-free detection)MSH6: [employer] ultraView Sherman DAB Detection Kit (indirect biotin-free detection)MSH6 was developed and its performance characteristics determined by the [facility] Immunohistochemistry Department. It has not been cleared or approved by the U.S. Food and Drug Administration. The FDA has determined that such clearance or approval is not necessary. This test is used for clinical purposes. It should not be regarded as investigational or for research. This laboratory is certified under the Clinical Laboratory Improvement Amendments of 1988 (???CLIA???) as qualified to perform high-complexity clinical testing.Scoring CriteriaIntact expression - Any positive reaction in tumor cell nucleiLoss of expression - No positive reaction in tumor cell nuclei with positive reaction in internal control cellsReferencesTemplate for Reporting Results of Biomarker Testing of Specimens From Patients with Carcinoma of the Colon and Rectum. Version: Calm 1.2.0.1. Template posting date: August 2014. [email or web address] 09/2021 Report Electronically Signed [facility]/12/05/2023Susandra Ruiz M.D.[place] [address], License number: [id number].Clinical HistoryRectal mass.Gross Description1. Received in formalin labeled, HESSICK, rectal mass are 7 leroy to medrano by 0.2 to 0.4 cm soft tissue bits. The specimen is filtered and entirely submitted in a single cassette. (1, ns, [id number], m5) SM2. Received in formalin labeled, HESSICK, rectal mass #2 are multiple fragments of reddish-brown friable polypoid tissue that ranges from 0.3 x 0.2 x 0.2 cm to 1.3 x 0.9 x 0.8 cm. The surgical margins of the largest portion are inked. The largest portion is serially sectioned and submitted in cassette A. The remaining polypoid portions are entirely submitted in cassettes B-C. Gross photographs are taken. (3, ns, [id number],m5) [facility]/11/29/2023SSISpecimen(s) Received1: Rectal mass2: Rectal mass #2Fee Codes(s):1; 484488; 59279, 84734, 05693(3) CBC AND AUTO DIFFon 11-27-19 24 ABSOLUTE BASOPHIL 0.1 X10E9/L Normal 0.0-0.2 [facility] Comment on above: Performed By: #### C TOO SHEA, ####[facility] ([id number])[address] [address] ABSOLUTE NEUTROPHIL 7.9 X10E9/L High 1.5-6.6 [facility] Comment on above: Performed By: #### C TOO SHEA, ####[facility] ([id number])[address] [address], [place] [address] Basophils/100 WBC (Bld) 1.1 % Normal [facility] Comment on above: Performed By: #### C TOO SHEA, ####[facility] ([id number])[address], [place] [address] Eosinophils (Bld) [#/Vol] 0.2 10*3/uL Normal 0.0-0.4 [facility] Comment on above: Performed By: #### Dru SHEA CMP, ####[facility] ([id number])[address] [address] Eosinophils/100 WBC (Bld) 1.7 % Normal [facility] Comment on above: Performed By: #### C TOO SHEA, ####[facility] ([id number])[address] [address] [address] Erythrocyte distribution width (RBC) [Ratio] 20.1 % High 11.5-15.0 [facility] Comment on above: Performed By: #### Dru SHEA CMP, ####[facility] ([id number])[address] [address] [address] Hematocrit (Bld) [Volume fraction] 27.1 % Low 35-47 [facility] Comment on above: Performed By: #### C BCA, CMP, ####[facility] ([id number])[address] [address] Hemoglobin (Bld) [Mass/Vol] 9.0 g/dL Low 11.7-15.5 [facility] Comment on above: Performed By: #### C BCA, CMP, ####[facility] ([id number])[address], [address], [place] [address] Lymphocytes (Bld) [#/Vol] 1.1 10*3/uL Normal 1.0-3.5 [facility] Comment on above: Performed By: #### Dru SHEA, CMP, ####[facility] ([id number])[address], [place] [address] Lymphocytes/100 WBC (Bld) 10.9 % Normal [facility] Comment on above: Performed By: #### Dru BCA, CMP, ####[facility] ([id number])[address] [address] MCH (RBC) [Entitic mass] 30.0 pg Normal 27-34 [facility] Comment on above: Performed By: #### C MONSE, CMP, ####[facility] ([id number])0 [address] [address] [address] MCHC (RBC) [Mass/Vol] 33.4 g/dL Normal 32-36 [facility] Comment on above: Performed By: #### C BCA, CMP, ####[facility] ([id number])[address] [address] [address] MCV (RBC) [Entitic vol] 90 fL Normal 80-100 [facility] Comment on above: Performed By: #### C BCA, CMP, ####[facility] ([id number])[address], [place] [address] Monocytes (Bld) [#/Vol] 1.1 10*3/uL High 0-0.9 [place] [facility] Comment on above: Performed By: #### Dru SHEA, CMP, ####[facility] ([id number])[address], [address], [place] [address] Monocytes/100 WBC (Bld) 10.7 % Normal [facility] Comment on above: Performed By: #### Dru SHEA, CMP, ####[facility] ([id number])[address], [address], [place] [address] Neutrophils/100 WBC (Bld) 75.6 % Normal [facility] Comment on above: Performed By: #### Dru SHEA, CMP, ####[facility] ([id number])[address], [address], [place] [address] Platelet mean volume (Bld) [Entitic vol] 10.2 fL Normal 7-12 [facility] Comment on above: Performed By: #### Dru SHEA, CMP, ####[facility] ([id number])[address] [address], [place] [address] Platelets (Bld) [#/Vol] 120 10*3/uL Low 150-450 [facility] Comment on above: Performed By: #### Dru BCA, CMP, ####[facility] ([id number])[address], [address], [place] [address] RBC COUNT 3.01 X10E12/L Low 3.80-5.20 [facility] Comment on above: Performed By: #### Dru BCA, CMP, ####[facility] ([id number])[address], [address], [place] [address] WBC (Bld) [#/Vol] 10.5 10*3/uL Normal 4.0-11.0 [facility] Comment on above: Performed By: #### C BCA, CMP, 81750-0 ####[facility] ([id number])[address], [place] [address] COMPREHENSIVE METABOLIC PANE Elver 11-27-2023 Albumin [Mass/Vol] 3.2 g/dL Normal 3.2-5.3 [facility] Comment on above: Performed By: #### C BCA, CMP, ####[facility] ([id number])[address], [address], [place] [address] ALP [Catalytic activity/Vol] 120 U/L Normal 39-130 [facility] Comment on above: Performed By: #### C BCA, CMP, ####[facility] ([id number])[address], [address], [place] [address] ALT [Catalytic activity/Vol] 22 U/L Normal 0-31 [facility] Comment on above: Performed By: #### C BCA, CMP, 68683-2 ####[facility] ([id number])[address], [address], [place] [address] Anion gap [Moles/Vol] 11 mmol/L Normal 5-15 [facility] Comment on above: Performed By: #### C BCA, CMP, ####[facility] ([id number])[address], [address], [place] [address] AST [Catalytic activity/Vol] 24 U/L Normal 0-41 [facility] Comment on above: Performed By: #### C BCA, CMP, 53955-6 ####[facility] ([id number])[address], [address], [place] [address] Bilirubin [Mass/Vol] 0.7 mg/dL Normal 0.3-1.2 [facility] Comment on above: Performed By: #### C BCA, [facility], [address]1635-0 ####[facility] ([id number])[address], [address] [address] Calcium [Mass/Vol] 8.3 mg/dL Low 8.5-10.5 [facility] Comment on above: Performed By: #### C BCA CMP, ####[facility] ([id number])[address], [address], [place] [address] Chloride [Moles/Vol] 106 mmol/L Normal 98-109 [facility] Comment on above: Performed By: #### C TOO SHEA, ####[facility] ([id number])[address] [address], [place] [address] CO2 [Moles/Vol] 25 mmol/L Normal 22-32 [facility] Comment on above: Performed By: #### C TOO SHEA, ####[facility] ([id number])[address] [address] [address] Creatinine [Mass/Vol] 1.27 mg/dL High 0.40-1.00 [facility] Comment on above: Result Comment: METH OD TRACEABLE TO IDMS STANDARD Performed By: #### C MONSE CMP, ####[facility] ([id number])[address] [address], [place] [address] GFR/1.73 sq M.predicted among non-blacks MDRD (S/P/Bld) [Vol rate/Area] 47 mL/min/{1.73_m2} Low >59 [facility] Comment on above: Result Comment: Repo rted eGFR is based on theCKD-EPI 2020 equation that doesnot use a race coefficient. Performed By: #### C BCA, CMP, ####[facility] ([id number])[address], [address], [place] [address] Glucose [Mass/Vol] 166 mg/dL High 65-99 [facility] Comment on above: Performed By: #### C MONSE, CMP, 36244-2 ####[facility] ([id number])[address], [address], [place] [address] Potassium [Moles/Vol] 4.2 mmol/L Normal 3.5-5.0 [facility] Comment on above: Performed By: #### Dru SHEA CMP, ####[facility] ([id number])[address], [address], [place] [address] Protein [Mass/Vol] 6.6 g/dL Normal 6.0-8.0 [facility] Comment on above: Performed By: #### Dru SHEA CMP, ####[facility] ([id number])[address], [address], [place] [address] Sodium [Moles/Vol] 142 mmol/L Normal 134-146 [facility] Comment on above: Performed By: #### Dru SHEA, CMP, 67114-8 ####[facility] ([id number])[address], [address], [place] [address] Urea nitrogen [Mass/Vol] 65 mg/dL High 5-27 [facility] Comment on above: Performed By: #### Dru SHEA, CMP, ####[facility] ([id number])[address], [address], [place] [address] Glucose Glucometer (BldC) [M ass/Vol]on 11-27-2023 Glucose [Mass/Vol] 162 mg/dL High 65-99 [facility] Glucose [Mass/Vol] 219 mg/dL High 65-99 [facility] Glucose [Mass/Vol] 215 mg/dL High 65-99 [facility] Glucose [Mass/Vol] 233 mg/dL High 65-99 [facility] MAGNESIUMon 11-27-2023 Magnesium [Mass/Vol] 2.2 mg/dL Normal 1.8-2.6 [facility] Comment on above: Performed By: #### C MONSE, CMP, 02150-3 ####[facility] ([id number])[address], [address], [place] [address] CBC AND AUTO DIFFon 11-26-19 ABSOLUTE BASOPHIL 0.1 X10E9/L Normal 0.0-0.2 [facility] Comment on above: Performed By: #### C MONSE, CMP, ####[facility] ([id number])[address], [address] [place] [address] ABSOLUTE NEUTROPHIL 7.6 X10E9/L High 1.5-6.6 [facility] Comment on above: Performed By: #### Dru BCA, CMP, ####[facility] ([id number])[address], [address] [place] [address] Basophils/100 WBC (Bld) 1.2 % Normal [facility] Comment on above: Performed By: #### Dru BCA, CMP, ####[facility] ([id number])[address] [address] [place] [address] Eosinophils (Bld) [#/Vol] 0.2 10*3/uL Normal 0.0-0.4 [facility] Comment on above: Performed By: #### C BCA, CMP, ####[facility] ([id number])[address] [address] [place] [address] Eosinophils/100 WBC (Bld) 1.6 % Normal [facility] Comment on above: Performed By: #### C BCA, CMP, ####[facility] ([id number])[address] [address] Erythrocyte distribution width (RBC) [Ratio] 19.8 % High 11.5-15.0 [facility] Comment on above: Performed By: #### Dru SHEA CMP, ####[facility] ([id number])[address] [address] [address] Hematocrit (Bld) [Volume fraction] 28.8 % Low 35-47 [facility] Comment on above: Performed By: #### Dru SHEA CMP, ####[facility] ([id number])[address] [address] Hemoglobin (Bld) [Mass/Vol] 9.6 g/dL Low 11.7-15.5 [facility] Comment on above: Performed By: #### Dru SHEA CMP, ####[facility] ([id number])[address] [address] [place] [address] Lymphocytes (Bld) [#/Vol] 1.0 10*3/uL Normal 1.0-3.5 [facility] Comment on above: Performed By: #### Dru SHEA CMP, ####[facility] ([id number])[address] [address], [place] [address] Lymphocytes/100 WBC (Bld) 10.4 % Normal [facility] Comment on above: Performed By: #### Dru SHEA CMP, ####[facility] ([id number])[address] [address] [address] MCH (RBC) [Entitic mass] 29.7 pg Normal 27-34 [facility] Comment on above: Performed By: #### Dru SHEA CMP, ####[facility] ([id number])[address] [address] [address] MCHC (RBC) [Mass/Vol] 33.4 g/dL Normal 32-36 [facility] Comment on above: Performed By: #### Dru SHEA CMP, ####[facility] ([id number])[address], [address], [place] [address] MCV (RBC) [Entitic vol] 89 fL Normal 80-100 [facility] Comment on above: Performed By: #### Dru SHEA CMP, ####[facility] ([id number])[address] [address] Monocytes (Bld) [#/Vol] 1.1 10*3/uL High 0-0.9 [facility] Comment on above: Performed By: #### Dru SHEA CMP, ####[facility] ([id number])[address] [address] Monocytes/100 WBC (Bld) 10.6 % Normal [facility] Comment on above: Performed By: #### Dru SHEA CMP, ####[facility] ([id number])[address] [address] Neutrophils/100 WBC (Bld) 76.2 % Normal [facility] Comment on above: Performed By: #### Dru SHEA CMP, ####[facility] ([id number])[address], [address], [place] [address] Platelet mean volume (Bld) [Entitic vol] 10.0 fL Normal 7-12 [facility] Comment on above: Performed By: #### Dru SHEA CMP, ####[facility] ([id number])[address], [address], [place] [address] Platelets (Bld) [#/Vol] 144 10*3/uL Low 150-450 [facility] Comment on above: Performed By: #### Dru SHEA, CMP, ####[facility] ([id number])[address], [place] [address] RBC COUNT 3.24 X10E12/L Low 3.80-5.20 [facility] Comment on above: Performed By: #### C BCA, CMP, ####[facility] ([id number])[address], [address] [place] [address] WBC (Bld) [#/Vol] 10.0 10*3/uL Normal 4.0-11.0 [facility] Comment on above: Performed By: #### C BCA, CMP, ####[facility] ([id number])[address], [address] [place] [address] COMPREHENSIVE METABOLIC PANE Elver 11-26-2023 Albumin [Mass/Vol] 3.0 g/dL Low 3.2-5.3 [facility] Comment on above: Performed By: #### C BCA, CMP, ####[facility] ([id number])[address], [address] [place] [address] ALP [Catalytic activity/Vol] 135 U/L High 39-130 [facility] Comment on above: Performed By: #### C BCA, CMP, ####[facility] ([id number])[address] [address] [place] [address] ALT [Catalytic activity/Vol] 23 U/L Normal 0-31 [facility] Comment on above: Performed By: #### C BCA, CMP, ####[facility] ([id number])[address] [address] [place] [address] Anion gap [Moles/Vol] 12 mmol/L Normal 5-15 [facility] Comment on above: Performed By: #### C BCA, CMP, ####[facility] ([id number])[address], [address], [place] [address] AST [Catalytic activity/Vol] 25 U/L Normal 0-41 [facility] Comment on above: Performed By: #### C BCA, CMP, ####[facility] ([id number])[address], [address], [place] [address] Bilirubin [Mass/Vol] 0.7 mg/dL Normal 0.3-1.2 [facility] Comment on above: Performed By: #### C BCA, CMP, ####[facility] ([id number])[address], [place] [address] Calcium [Mass/Vol] 8.2 mg/dL Low 8.5-10.5 [facility] Comment on above: Performed By: #### C BCA, CMP, ####[facility] ([id number])[address], [address], [place] [address] Chloride [Moles/Vol] 102 mmol/L Normal 98-109 [facility] Comment on above: Performed By: #### C BCA, CMP, ####[facility] ([id number])[address], [address], [place] [address] CO2 [Moles/Vol] 28 mmol/L Normal 22-32 [facility] Comment on above: Performed By: #### C BCA, CMP, ####[facility] ([id number])[address], [address], [place] [address] Creatinine [Mass/Vol] 1.40 mg/dL High 0.40-1.00 [facility] Comment on above: Result Comment: METH OD TRACEABLE TO IDMS STANDARD Performed By: #### C BCA, CMP, ####[facility] ([id number])[address] [address] [address] GFR/1.73 sq M.predicted among non-blacks MDRD (S/P/Bld) [Vol rate/Area] 41 mL/min/{1.73_m2} Low >59 [facility] Comment on above: Result Comment: Repo rted eGFR is based on theCKD-EPI 2020 equation that doesnot use a race coefficient. Performed By: #### C TOO SHEA, ####[facility] ([id number])[address] [address] [place] [address] Glucose [Mass/Vol] 173 mg/dL High 65-99 [facility] Comment on above: Performed By: #### Dru SHEA CMP, ####[facility] ([id number])[address] [address] [address] Potassium [Moles/Vol] 3.6 mmol/L Normal 3.5-5.0 [facility] Comment on above: Performed By: #### Dru SHEA CMP, ####[facility] ([id number])[address] [address], [place] [address] Protein [Mass/Vol] 6.4 g/dL Normal 6.0-8.0 [facility] Comment on above: Performed By: #### Dru SHEA CMP, ####[facility] ([id number])[address] [address], [place] [address] Sodium [Moles/Vol] 142 mmol/L Normal 134-146 [facility] Comment on above: Performed By: #### Dru SHEA CMP, ####[facility] ([id number])[address] [address], [place] [address] Urea nitrogen [Mass/Vol] 70 mg/dL High 5-27 [facility] Comment on above: Performed By: #### C TOO SHEA, ####[facility] ([id number])[address], [place] [address] DIGOXINon 11-26-2023 Digoxin [Mass/Vol] 1.0 ng/mL Normal 0.8-2.0 [facility] Comment on above: Performed By: #### 1 0535-3 ####[facility] ([id number])[address], [address] [place] [address] Glucose Glucometer (BldC) [M ass/Vol]on 11-26-2023 Glucose [Mass/Vol] 177 mg/dL High 65-99 [facility] Glucose [Mass/Vol] 323 mg/dL High 65-99 [facility] Glucose [Mass/Vol] 175 mg/dL High 65-99 [facility] Glucose [Mass/Vol] 207 mg/dL High 65-99 [facility] HGB AND HCTon 11-26-2023 Hematocrit (Bld) [Volume fraction] 28.2 % Low 35-47 [facility] Comment on above: Performed By: #### H H ####[facility] ([id number])[address], [address] [place] [address] Hemoglobin (Bld) [Mass/Vol] 9.3 g/dL Low 11.7-15.5 [facility] Comment on above: Performed By: #### H H ####[facility] ([id number])[address], [address] [place] [address] Hematocrit (Bld) [Volume fraction] 26.8 % Low 35-47 [facility] Comment on above: Performed By: #### H H ####[facility] ([id number])[address], [address] [place] [address] Hemoglobin (Bld) [Mass/Vol] 8.6 g/dL Low 11.7-15.5 [facility] Comment on above: Performed By: #### H H ####[facility] ([id number])[address], [place] [address] MAGNESIUMon 11-26-2023 Magnesium [Mass/Vol] 2.2 mg/dL Normal 1.8-2.6 [facility] Comment on above: Performed By: #### C TOO SHEA, 18467-2 ####[facility] ([id number])[address], [place] [address] POTASSIUMon 11-26-2023 Potassium [Moles/Vol] 5.6 mmol/L High 3.5-5.0 [facility] Comment on above: Performed By: #### 2 823-3 ####[facility] ([id number])[address], [address] [place] [address] CBC AND AUTO DIFFon 11-25-19 ABSOLUTE BASOPHIL 0.1 X10E9/L Normal 0.0-0.2 [facility] Comment on above: Performed By: #### Dru SHEA CMP, 82616-8 ####[facility] ([id number])[address] [address] [place] [address] ABSOLUTE NEUTROPHIL 7.8 X10E9/L High 1.5-6.6 [facility] Comment on above: Performed By: #### C MONSE CMP, ####[facility] ([id number])[address] [address] [place] [address] Basophils/100 WBC (Bld) 1.0 % Normal [facility] Comment on above: Performed By: #### C MONSE CMP, ####[facility] ([id number])[address] [address] [place] [address] Eosinophils (Bld) [#/Vol] 0.2 10*3/uL Normal 0.0-0.4 [facility] Comment on above: Performed By: #### C MONSE, CMP, ####[facility] ([id number])[address] [address] Eosinophils/100 WBC (Bld) 1.5 % Normal [facility] Comment on above: Performed By: #### C MONSE CMP, ####[facility] ([id number])[address] [address] Erythrocyte distribution width (RBC) [Ratio] 20.3 % High 11.5-15.0 [facility] Comment on above: Performed By: #### C TOO SHEA, ####[facility] ([id number])[address] [address] Hematocrit (Bld) [Volume fraction] 30.5 % Low 35-47 [facility] Comment on above: Performed By: #### Dru SHEA, [facility], ####[facility] ([id number])[address] [address] Hemoglobin (Bld) [Mass/Vol] 10.1 g/dL Low 11.7-15.5 [facility] Comment on above: Performed By: #### Dru SHEA CMP, ####[facility] ([id number])[address], [place] [address] Lymphocytes (Bld) [#/Vol] 1.2 10*3/uL Normal 1.0-3.5 [facility] Comment on above: Performed By: #### C MONSE, CMP, ####[facility] ([id number])[address] [address], [place] [address] Lymphocytes/100 WBC (Bld) 11.4 % Normal [facility] Comment on above: Performed By: #### C MONSE, CMP, ####[facility] ([id number])[address], [place] [address] MCH (RBC) [Entitic mass] 29.6 pg Normal 27-34 [facility] Comment on above: Performed By: #### Dru SHEA CMP, ####[facility] ([id number])[address], [place] [address] MCHC (RBC) [Mass/Vol] 33.0 g/dL Normal 32-36 [facility] Comment on above: Performed By: #### Dru SHEA, CMP, ####[facility] ([id number])[address], [place] [address] MCV (RBC) [Entitic vol] 90 fL Normal 80-100 [facility] Comment on above: Performed By: #### Dru SHEA CMP, ####[facility] ([id number])[address], [place] [address] Monocytes (Bld) [#/Vol] 1.1 10*3/uL High 0-0.9 [facility] Comment on above: Performed By: #### Dru SHEA, CMP, ####[facility] ([id number])[address] [address], [place] [address] Monocytes/100 WBC (Bld) 10.3 % Normal [facility] Comment on above: Performed By: #### Dru SHEA, CMP, ####[facility] ([id number])[address], [place] [address] Neutrophils/100 WBC (Bld) 75.8 % Normal [facility] Comment on above: Performed By: #### Dru SHEA, CMP, ####[facility] ([id number])[address], [place] [address] Platelet mean volume (Bld) [Entitic vol] 9.7 fL Normal 7-12 [facility] Comment on above: Performed By: #### C BCA, CMP, ####[facility] ([id number])[address] [address] Platelets (Bld) [#/Vol] 145 10*3/uL Low 150-450 [facility] Comment on above: Performed By: #### C BCA, CMP, ####[facility] ([id number])[address] [address] RBC COUNT 3.40 X10E12/L Low 3.80-5.20 [facility] Comment on above: Performed By: #### C BCA, CMP, ####[facility] ([id number])[address] [address] WBC (Bld) [#/Vol] 10.3 10*3/uL Normal 4.0-11.0 [facility] Comment on above: Performed By: #### C BCA, CMP, ####[facility] ([id number])[address] [place] [address] COMPREHENSIVE METABOLIC PANE Elver 11-25-2023 Albumin [Mass/Vol] 3.1 g/dL Low 3.2-5.3 [facility] Comment on above: Performed By: #### C BCA, CMP, ####[facility] ([id number])[address] [address] ALP [Catalytic activity/Vol] 144 U/L High 39-130 [facility] Comment on above: Performed By: #### C BCA, CMP, ####[facility] ([id number])[address] [address] ALT [Catalytic activity/Vol] 28 U/L Normal 0-31 [facility] Comment on above: Performed By: #### C BCA, CMP, ####[facility] ([id number])[address], [place] [address] Anion gap [Moles/Vol] 10 mmol/L Normal 5-15 [facility] Comment on above: Performed By: #### C BCA, CMP, ####[facility] ([id number])[address], [place] [address] AST [Catalytic activity/Vol] 32 U/L Normal 0-41 [facility] Comment on above: Performed By: #### C MONSE, CMP, ####[facility] ([id number])[address], [place] [address] Bilirubin [Mass/Vol] 0.7 mg/dL Normal 0.3-1.2 [facility] Comment on above: Performed By: #### C BCA, CMP, ####[facility] ([id number])[address], [place] [address] Calcium [Mass/Vol] 8.4 mg/dL Low 8.5-10.5 [facility] Comment on above: Performed By: #### C BCA, CMP, ####[facility] ([id number])[address], [place] [address] Chloride [Moles/Vol] 96 mmol/L Low 98-109 [facility] Comment on above: Performed By: #### C BCA, CMP, ####[facility] ([id number])[address], [place] [address] CO2 [Moles/Vol] 31 mmol/L Normal 22-32 [facility] Comment on above: Performed By: #### C BCA, CMP, ####[facility] ([id number])[address] [address], [place] [address] Creatinine [Mass/Vol] 1.38 mg/dL High 0.40-1.00 [facility] Comment on above: Result Comment: METH OD TRACEABLE TO IDMS STANDARD Performed By: #### C TOO SHEA, 12255-9 ####[facility] ([id number])[address] [address] [address] GFR/1.73 sq M.predicted among non-blacks MDRD (S/P/Bld) [Vol rate/Area] 42 mL/min/{1.73_m2} Low >59 [facility] Comment on above: Result Comment: Repo rted eGFR is based on theCKD-EPI 2020 equation that doesnot use a race coefficient. Performed By: #### C TOO SHEA, ####[facility] ([id number])[address] [address] [address] Glucose [Mass/Vol] 156 mg/dL High 65-99 [facility] Comment on above: Performed By: #### C MONSE [facility], ####[facility] ([id number])[address] [address] [address] Potassium [Moles/Vol] 3.5 mmol/L Normal 3.5-5.0 [facility] Comment on above: Performed By: #### C BCA, CMP, ####[facility] ([id number])[address] [address], [place] [address] Protein [Mass/Vol] 6.3 g/dL Normal 6.0-8.0 [facility] Comment on above: Performed By: #### C MONSE, CMP, ####[facility] ([id number])[address] [address], [place] [address] Sodium [Moles/Vol] 137 mmol/L Normal 134-146 [facility] System Comment on above: Performed By: #### C TOO SHEA, 87456-7 ####[facility] ([id number])[address], [address] [place] [address]285 Urea nitrogen [Mass/Vol] 83 mg/dL High 5-27 [facility] Comment on above: Performed By: #### C TOO SHEA, 07922-2 ####[facility] ([id number])[address], [address] [place] [address] 17841 Glucose Glucometer (BldC) [M ass/Vol]on 11-25-2023 Glucose [Mass/Vol] 166 mg/dL High 65-99 [facility] Glucose [Mass/Vol] 196 mg/dL High 65-99 [facility] Glucose [Mass/Vol] 197 mg/dL High 65-99 [facility] Glucose [Mass/Vol] 212 mg/dL High 65-99 [facility] Glucose [Mass/Vol] 203 mg/dL High 65-99 [facility] MAGNESIUMon 11-25-2023 Magnesium [Mass/Vol] 2.3 mg/dL Normal 1.8-2.6 [facility] Comment on above: Performed By: #### C TOO SHEA, 03188-8 ####[facility] ([id number])[address], [address] [place] [address] 30208 Magnesium Ionized ISE (Bld) [Moles/Vol]on 11-25-2023 Magnesium [Moles/Vol] 0.64 mmol/L Normal 0.45-0.74 [facility] Comment on above: Result Comment: NEW REFERENCE RANGE Performed By: #### 7 3572-0 ####[facility] ([id number])[address], [address] [place] [address] 08881 TRIGLYCERIDEon 11-25-2023 Triglyceride [Mass/Vol] 198 mg/dL High 27-150 [facility] Comment on above: Performed By: #### 2 571-8 ####[facility] ([id number])[address], [address] [place] [address] 97179 URINALYSISon 11-25-2023 Bilirubin Ql (U) Negative Normal NEG [facility] Comment on above: Performed By: #### U A ####[facility] ([id number])[address], [address] [place] [address] 37949 BLOOD/HGB Trace Abnormal NEG [facility] Comment on above: Performed By: #### U A ####[facility] ([id number])[address], [address] [place] [address] 98149 Color (U) YELLOW Normal YELLOW [facility] Comment on above: Performed By: #### U A ####[facility] ([id number])[address], [address] [place] [address] 61477 Glucose Ql (U) Negative Normal NEG [facility] Comment on above: Performed By: #### U A ####[facility] ([id number])[address], [address] [place] [address] 93141 GRANULAR CASTS 8 /lpf High 0 [facility] Comment on above: Performed By: #### U A ####[facility] ([id number])[address], [address] [place] [address] 29599 Hyaline casts LM Ql (Urine sed) 11 /lpf High 0-2 [facility] Comment on above: Performed By: #### U A ####[facility] ([id number])[address], [address] [place] [address] 37913 Ketones Ql (U) Negative Normal NEG [facility] Comment on above: Performed By: #### U A ####[facility] ([id number])[address], [address] [place] [address] 32734 Leukocyte esterase Test strip Ql (U) MODERATE Abnormal NEG [facility] Comment on above: Performed By: #### U A ####[facility] ([id number])[address], [address] [place] [address] 83202 MUCOUS PRESENT Abnormal NONE [facility] Comment on above: Performed By: #### U A ####[facility] ([id number])[address] [address] Nitrite Ql (U) Negative Normal NEG [facility] Comment on above: Performed By: #### U A ####[facility] ([id number])[address] [address] pH (U) 7.5 [pH] Normal 5.0-8.5 [facility] Comment on above: Performed By: #### U A ####[facility] ([id number])[address] [address] [place] [address] 03813 Protein Ql (U) Trace Abnormal NEG [facility] Comment on above: Performed By: #### U A ####[facility] ([id number])[address] [address] R.B.CELLS 2 /hpf Normal 0-5 [facility] Comment on above: Performed By: #### U A ####[facility] ([id number])[address] [address] [place] [address] 27908 Specific gravity (U) [Rel density] 1.016 Normal 1.003-1.035 [facility] Comment on above: Performed By: #### U A ####[facility] ([id number])[address] [address] SQUAMOUS EPITHELIUM 2 /hpf Normal 0-5 [facility] Comment on above: Performed By: #### U A ####[facility] ([id number])[address] [address] TRANSITIONAL EPITH <1 High 0 [facility] Comment on above: Performed By: #### U A ####[facility] ([id number])[address] [address] TURBIDITY HAZY Abnormal CLEAR [facility] Comment on above: Performed By: #### U A ####[facility] ([id number])[address] [address] Urinalysis dipstick W Reflex Microscopic panel (U) URINE RECEIVED WITHOUT PRESERVATIVE-DELAYS IN TRANSPORT MAY AFFECT RESULTS.INTERPRET WITH CAUTION AND CLINICAL CORRELATION IS RECOMMENDED. Normal [facility] Comment on above: Performed By: #### U A ####[facility] ([id number])[address] [address] Urobilinogen (U) [Mass/Vol] mg/dL Normal <1.1 [facility] Comment on above: Performed By: #### U A ####[facility] ([id number])[address] [address] W.B.CELLS 25 /hpf High 0-5 [facility] Comment on above: Performed By: #### U A ####[facility] ([id number])[address] [address] URINE CULTUREon 11-25-2023 Bacteria identified Cx Nom (U) SPECIMEN NOTES URINE RECEIVED WITHOUT PRESERVATIVE CULTURE RESULTS >100,000 ORGANISMS/mL DEBRA ALBICANS URINE RECEIVED WITHOUT PRESERVATIVE-DELAYS IN TRANSPORT MAY AFFECT RESULTS.INTERPRET WITH CAUTION AND CLINICAL CORRELATION IS RECOMMENDED. Normal [facility] Comment on above: Performed By: #### 6 30-4 ####[facility] ([id number])[address] [address] Glucose Glucometer (BldC) [M ass/Vol]on 11-24-2023 Glucose [Mass/Vol] 230 mg/dL High 65-99 [facility] Glucose [Mass/Vol] 197 mg/dL High 65-99 [facility] Glucose [Mass/Vol] 235 mg/dL High 65-99 [facility] Glucose [Mass/Vol] 125 mg/dL High 65-99 [facility] CBC AND AUTO DIFFon 11-23-19 ABSOLUTE BASOPHIL 0.1 X10E9/L Normal 0.0-0.2 [facility] Comment on above: Performed By: #### C MONSE, CMP, , 2776-09 ####[facility] ([id number])[address] [address] ABSOLUTE NEUTROPHIL 7.5 X10E9/L High 1.5-6.6 [facility] Comment on above: Performed By: #### Dru BCA, CMP, , 2776-09 ####[facility] ([id number])[address] [address] Basophils/100 WBC (Bld) 1.0 % Normal [facility] Comment on above: Performed By: #### Dru BCA, CMP, , 2776-09 ####[facility] ([id number])[address] [address] Eosinophils (Bld) [#/Vol] 0.3 10*3/uL Normal 0.0-0.4 [facility] Comment on above: Performed By: #### C BCA, CMP, , 2776-09 ####[facility] ([id number])[address], [address] [address] Eosinophils/100 WBC (Bld) 2.6 % Normal [facility] Comment on above: Performed By: #### Dru BCA, CMP, , 2776-09 ####[facility] ([id number])[address], [address] [place] [address] 53848 Erythrocyte distribution width (RBC) [Ratio] 20.4 % High 11.5-15.0 [facility] Comment on above: Performed By: #### C MONSE CMP, , 2776-09 ####[facility] ([id number])[address] [address], [place] [address] Hematocrit (Bld) [Volume fraction] 29.5 % Low 35-47 [facility] Comment on above: Performed By: #### C MONSE, CMP, , 2776-09 ####[facility] ([id number])[address] [address] Hemoglobin (Bld) [Mass/Vol] 9.8 g/dL Low 11.7-15.5 [facility] Comment on above: Performed By: #### Dru SHEA, CMP, , 2776-09 ####[facility] ([id number])[address] [address] [place] [address] 14040 Lymphocytes (Bld) [#/Vol] 1.0 10*3/uL Normal 1.0-3.5 [facility] Comment on above: Performed By: #### Dru SHEA, CMP, , 2776-09 ####[facility] ([id number])[address] [address] Lymphocytes/100 WBC (Bld) 10.5 % Normal [facility] Comment on above: Performed By: #### Dru BCA, CMP, , 2776-09 ####[facility] ([id number])[address] [address] MCH (RBC) [Entitic mass] 29.4 pg Normal 27-34 [facility] Comment on above: Performed By: #### Dru BCA, CMP, , 2776-09 ####[facility] ([id number])[address] [address] MCHC (RBC) [Mass/Vol] 33.2 g/dL Normal 32-36 [facility] Comment on above: Performed By: #### C BCA, CMP, , 2776-09 ####[facility] ([id number])[address], [address], [place] [address] MCV (RBC) [Entitic vol] 89 fL Normal 80-100 [facility] Comment on above: Performed By: #### C BCA, CMP, , 2776-09 ####[facility] ([id number])[address] [address], [place] [address] Monocytes (Bld) [#/Vol] 0.9 10*3/uL Normal 0-0.9 [facility] Comment on above: Performed By: #### Dru BCA, CMP, , 2776-09 ####[facility] ([id number])[address] [address], [place] [address] Monocytes/100 WBC (Bld) 9.1 % Normal [facility] Comment on above: Performed By: #### Dru BCA, CMP, , 2776-09 ####[facility] ([id number])[address] [address] [place] [address] 10131 Neutrophils/100 WBC (Bld) 76.8 % Normal [facility] Comment on above: Performed By: #### C BCA, CMP, , 2776-09 ####[facility] ([id number])[address] [address] [place] [address], [place] [address] Platelet mean volume (Bld) [Entitic vol] 9.9 fL Normal 7-12 [facility] Comment on above: Performed By: #### Dru BCA, CMP, , 2776-09 ####[facility] ([id number])[address] [address] Platelets (Bld) [#/Vol] 164 10*3/uL Normal 150-450 [facility] Comment on above: Performed By: #### C BCA, CMP, , 2776-09 ####[facility] ([id number])[address] [address] RBC COUNT 3.33 X10E12/L Low 3.80-5.20 [facility] Comment on above: Performed By: #### C BCA, CMP, , 2776-09 ####[facility] ([id number])[address] [address] WBC (Bld) [#/Vol] 9.7 10*3/uL Normal 4.0-11.0 [facility] Comment on above: Performed By: #### C BCA, CMP, , 2776-09 ####[facility] ([id number])[address] [address] COMPREHENSIVE METABOLIC PANE Elver 11-23-2023 Albumin [Mass/Vol] 2.9 g/dL Low 3.2-5.3 [facility] Comment on above: Performed By: #### C BCA, CMP, , 2776-09 ####[facility] ([id number])[address] [address] ALP [Catalytic activity/Vol] 144 U/L High 39-130 [facility] Comment on above: Performed By: #### C BCA, CMP, , 2776-09 ####[facility] ([id number])[address] [address] ALT [Catalytic activity/Vol] 19 U/L Normal 0-31 [facility] Comment on above: Performed By: #### C BCA, CMP, , 2776-09 ####[facility] ([id number])[address], [address], [place] [address] Anion gap [Moles/Vol] 11 mmol/L Normal 5-15 [facility] Comment on above: Performed By: #### C BCA, CMP, , 2776-09 ####[facility] ([id number])[address], [place] [address] AST [Catalytic activity/Vol] 24 U/L Normal 0-41 [facility] Comment on above: Performed By: #### C BCA, CMP, , 2776-09 ####[facility] ([id number])[address], [place] [address] Bilirubin [Mass/Vol] 0.7 mg/dL Normal 0.3-1.2 [facility] Comment on above: Performed By: #### C BCA, CMP, , 2776-09 ####[facility] ([id number])[address], [place] [address] Calcium [Mass/Vol] 8.6 mg/dL Normal 8.5-10.5 [facility] Comment on above: Performed By: #### C BCA, CMP, , 2776-09 ####[facility] ([id number])[address], [place] [address] Chloride [Moles/Vol] 96 mmol/L Low 98-109 [facility] Comment on above: Performed By: #### C BCA, CMP, , 2776-09 ####[facility] ([id number])[address], [place] [address] CO2 [Moles/Vol] 32 mmol/L Normal 22-32 [facility] Comment on above: Performed By: #### C MONSE CMP, , 2776-09 ####[facility] ([id number])[address] [address] [address] Creatinine [Mass/Vol] 1.32 mg/dL High 0.40-1.00 [facility] Comment on above: Result Comment: METH OD TRACEABLE TO IDMS STANDARD Performed By: #### C MONSE CMP, , 2776-09 ####[facility] ([id number])[address] [address], [place] [address] GFR/1.73 sq M.predicted among non-blacks MDRD (S/P/Bld) [Vol rate/Area] 45 mL/min/{1.73_m2} Low >59 [facility] Comment on above: Result Comment: Repo rted eGFR is based on theCKD-EPI 2020 equation that doesnot use a race coefficient. Performed By: #### C MONSE CMP, , 2776-09 ####[facility] ([id number])[address] [address] [address] Glucose [Mass/Vol] 131 mg/dL High 65-99 [facility] Comment on above: Performed By: #### C TOO SHEA, , 2776-09 ####[facility] ([id number])[address] [address] [address] Potassium [Moles/Vol] 3.8 mmol/L Normal 3.5-5.0 [facility] Comment on above: Performed By: #### C MONSE, CMP, , 2776-09 ####[facility] ([id number])[address] [address] [address] Protein [Mass/Vol] 6.4 g/dL Normal 6.0-8.0 [facility] Comment on above: Performed By: #### C BCA, CMP, , 2776-09 ####[facility] ([id number])[address] [address] Sodium [Moles/Vol] 139 mmol/L Normal 134-146 [facility] Comment on above: Performed By: #### C MONSE, CMP, , 2776-09 ####[facility] ([id number])[address] [address] Urea nitrogen [Mass/Vol] 84 mg/dL High 5-27 [facility] Comment on above: Performed By: #### C TOO SHEA, , 2776-09 ####[facility] ([id number])[address] [address] FL SWALLOW MOTILITY FUNCTION on 11-23-2023 FL SWALLOW MOTILITY FUNCTION Normal [facility] Glucose Glucometer (BldC) [M ass/Vol]on 11-23-2023 Glucose [Mass/Vol] 196 mg/dL High 65-99 [facility] Glucose [Mass/Vol] 220 mg/dL High 65-99 [facility] Glucose [Mass/Vol] 140 mg/dL High 65-99 [facility] Glucose [Mass/Vol] 222 mg/dL High 65-99 [facility] MAGNESIUMon 11-23-2023 Magnesium [Mass/Vol] 2.1 mg/dL Normal 1.8-2.6 [facility] Comment on above: Performed By: #### Dru SHEA, CMP, , 2776-09 ####[facility] ([id number])[address] [address] PHOSPHORUSon 11-23-2023 Phosphate [Mass/Vol] 2.6 mg/dL Normal 2.4-4.9 [facility] Comment on above: Performed By: #### Dru SHEA, CMP, , 2776-09 ####[facility] ([id number])[address] [address] CBC AND AUTO DIFFon 11-22-19 ABSOLUTE BASOPHIL 0.1 X10E9/L Normal 0.0-0.2 [facility] Comment on above: Performed By: #### C BCA, CMP, , 2776-09 ####[facility] ([id number])[address], [place] [address] ABSOLUTE NEUTROPHIL 9.8 X10E9/L High 1.5-6.6 [facility] Comment on above: Performed By: #### C BCA, CMP, , 2776-09 ####[facility] ([id number])[address], [place] [address] Basophils/100 WBC (Bld) 1.0 % Normal [facility] Comment on above: Performed By: #### C BCA, CMP, , 2776-09 ####[facility] ([id number])[address] [address] [place] [address] Eosinophils (Bld) [#/Vol] 0.2 10*3/uL Normal 0.0-0.4 [facility] Comment on above: Performed By: #### C BCA, CMP, , 2776-09 ####[facility] ([id number])[address], [address] [place] [address] Eosinophils/100 WBC (Bld) 1.4 % Normal [facility] Comment on above: Performed By: #### C BCA, CMP, , 2776-09 ####[facility] ([id number])[address], [address] [place] [address] Erythrocyte distribution width (RBC) [Ratio] 20.9 % High 11.5-15.0 [facility] Comment on above: Performed By: #### C BCA, CMP, 37776-22776-09 ####[facility] ([id number])[address] [address] Hematocrit (Bld) [Volume fraction] 32.5 % Low 35-47 [facility] Comment on above: Performed By: #### C MONSE, CMP, , 2776-09 ####[facility] ([id number])[address] [address] Hemoglobin (Bld) [Mass/Vol] 10.8 g/dL Low 11.7-15.5 [facility] Comment on above: Performed By: #### C MONSE, CMP, , 2776-09 ####[facility] ([id number])[address] [address], [place] [address] Lymphocytes (Bld) [#/Vol] 1.1 10*3/uL Normal 1.0-3.5 [facility] Comment on above: Performed By: #### C BCA, CMP, , 2776-09 ####[facility] ([id number])[address] [address] [place] [address] Lymphocytes/100 WBC (Bld) 9.5 % Normal [facility] Comment on above: Performed By: #### C BCA, CMP, , 2776-09 ####[facility] ([id number])[address] [address] MCH (RBC) [Entitic mass] 29.9 pg Normal 27-34 [facility] Comment on above: Performed By: #### C BCA, CMP, , 2776-09 ####[facility] ([id number])[address] [address] [address] MCHC (RBC) [Mass/Vol] 33.3 g/dL Normal 32-36 [facility] Comment on above: Performed By: #### C BCA, CMP, , 2776-09 ####[facility] ([id number])[address] [address] MCV (RBC) [Entitic vol] 90 fL Normal 80-100 [facility] Comment on above: Performed By: #### C BCA, CMP, , 2776-09 ####[facility] ([id number])[address] [address] Monocytes (Bld) [#/Vol] 0.8 10*3/uL Normal 0-0.9 [facility] Comment on above: Performed By: #### C BCA, CMP, , 2776-09 ####[facility] ([id number])[address] [address] Monocytes/100 WBC (Bld) 6.3 % Normal [facility] Comment on above: Performed By: #### C BCA, CMP, , 2776-09 ####[facility] ([id number])[address] [address] Neutrophils/100 WBC (Bld) 81.8 % Normal [facility] Comment on above: Performed By: #### C BCA, CMP, , 2776-09 ####[facility] ([id number])[address] [address] Platelet mean volume (Bld) [Entitic vol] 10.0 fL Normal 7-12 [facility] Comment on above: Performed By: #### C BCA, CMP, , 2776-09 ####[facility] ([id number])[address], [place] [address] Platelets (Bld) [#/Vol] 122 10*3/uL Low 150-450 [facility] Comment on above: Performed By: #### C BCA, CMP, , 2776-09 ####[facility] ([id number])[address], [place] [address] RBC COUNT 3.62 X10E12/L Low 3.80-5.20 [facility] Comment on above: Performed By: #### C BCA, CMP, , 2776-09 ####[facility] ([id number])[address], [address] [place] [address] WBC (Bld) [#/Vol] 12.0 10*3/uL High 4.0-11.0 [facility] Comment on above: Performed By: #### C BCA, CMP, , 2776-09 ####[facility] ([id number])[address], [address] [place] [address] COMPREHENSIVE METABOLIC PANE Elver 11-22-2023 Albumin [Mass/Vol] 3.0 g/dL Low 3.2-5.3 [facility] Comment on above: Performed By: #### C BCA, CMP, , 2776-09 ####[facility] ([id number])[address], [address] [place] [address] ALP [Catalytic activity/Vol] 157 U/L High 39-130 [facility] Comment on above: Performed By: #### C BCA, CMP, , 2776-09 ####[facility] ([id number])[address], [address] [place] [address], [place] [address] ALT [Catalytic activity/Vol] 17 U/L Normal 0-31 [facility] Comment on above: Performed By: #### C BCA, CMP, , 2776-09 ####[facility] ([id number])[address], [place] [address] Anion gap [Moles/Vol] 14 mmol/L Normal 5-15 [facility] Comment on above: Performed By: #### C BCA, CMP, , 2776-09 ####[facility] ([id number])[address], [place] [address] AST [Catalytic activity/Vol] 32 U/L Normal 0-41 [facility] Comment on above: Performed By: #### C BCA, CMP, , 2776-09 ####[facility] ([id number])[address], [address], [place] [address] Bilirubin [Mass/Vol] 0.8 mg/dL Normal 0.3-1.2 [facility] Comment on above: Performed By: #### C BCA, CMP, , 2776-09 ####[facility] ([id number])[address], [address], [place] [address] Calcium [Mass/Vol] 9.0 mg/dL Normal 8.5-10.5 [facility] Comment on above: Performed By: #### C BCA, CMP, , 2776-09 ####[facility] ([id number])[address], [address], [place] [address] Chloride [Moles/Vol] 97 mmol/L Low 98-109 [facility] Comment on above: Performed By: #### C BCA, CMP, , 2776-09 ####[facility] ([id number])[address], [address], [place] [address] CO2 [Moles/Vol] 28 mmol/L Normal 22-32 [facility] Comment on above: Performed By: #### C BCA, CMP, , 2776-09 ####[facility] ([id number])[address], [address], [place] [address] Creatinine [Mass/Vol] 1.34 mg/dL High 0.40-1.00 [facility] Comment on above: Result Comment: METH OD TRACEABLE TO IDMS STANDARD Performed By: #### C TOO SHEA, , 2776-09 ####[facility] ([id number])[address] [address] [address] GFR/1.73 sq M.predicted among non-blacks MDRD (S/P/Bld) [Vol rate/Area] 44 mL/min/{1.73_m2} Low >59 [facility] Comment on above: Result Comment: Repo rted eGFR is based on theCKD-EPI 2020 equation that doesnot use a race coefficient. Performed By: #### C TOO SHEA, , 2776-09 ####[facility] ([id number])[address] [address] [address] Glucose [Mass/Vol] 147 mg/dL High 65-99 [facility] Comment on above: Performed By: #### C TOO SHEA, , 2776-09 ####[facility] ([id number])[address] [address] [address] Potassium [Moles/Vol] 4.3 mmol/L Normal 3.5-5.0 [facility] Comment on above: Result Comment: SPEC IMEN HEMOLYZED, RESULTS INCREASEDMODERATELY HEMOLYZED Performed By: #### C TOO SHEA, , 2776-09 ####[facility] ([id number])[address] [facility] [address] [address] Protein [Mass/Vol] 6.7 g/dL Normal 6.0-8.0 [facility] Comment on above: Performed By: #### C TOO SHEA, , 2776-09 ####[facility] ([id number])[address] [address] [address] Sodium [Moles/Vol] 139 mmol/L Normal 134-146 [facility] Comment on above: Performed By: #### C MONSE, CMP, , 1 ####[facility] ([id number])[address], [address] [place] [address] Urea nitrogen [Mass/Vol] 82 mg/dL High 5-27 [facility] Comment on above: Performed By: #### C BCA, CMP, , 2776-09 ####[facility] ([id number])[address], [address], [place] [address] Glucose Glucometer (BldC) [M ass/Vol]on 11-22-2023 Glucose [Mass/Vol] 186 mg/dL High 65-99 [facility] Glucose [Mass/Vol] 217 mg/dL High 65-99 [facility] Glucose [Mass/Vol] 158 mg/dL High 65-99 [facility] BEDSIDE GLUCOSE LAB >500 Critically high 65-99 [facility] Comment on above: Result Comment: SEE LAB RESULTS FOR CONFIRMATION BEDSIDE GLUCOSE LAB REQUEST CREDITED Normal 65-99 [facility] Comment on above: Result Comment: QUES TIONABLE RESULTSCorrected on 11/22 AT 0831: Previously reported as >500 SEE LAB RESULTS FOR CONFIRMATION Glucose [Mass/Vol] 186 mg/dL High 65-99 [facility] MAGNESIUMon 11-22-2023 Magnesium [Mass/Vol] 2.0 mg/dL Normal 1.8-2.6 [facility] Comment on above: Performed By: #### C BCA, CMP, , 2776-09 ####[facility] ([id number])[address], [address] [place] [address] PHOSPHORUSon 11-22-2023 Phosphate [Mass/Vol] 2.9 mg/dL Normal 2.4-4.9 [facility] Comment on above: Result Comment: SPEC IMEN HEMOLYZED, RESULTS INCREASEDMODERATELY HEMOLYZED Performed By: #### C BCA, CMP, , 2776-09 ####[facility] ([id number])[address], [address], [place] [address] 36on 11-21-2023 36 Thanks for the update [facility] chart s he has other ID related issues other than UTI. She is on the schedule with [employer]LYST for the Hospital follow up on 11/28 Normal [facility] CBC AND AUTO DIFFon 11-21-19 24 ABSOLUTE BASOPHIL 0.1 X10E9/L Normal 0.0-0.2 [facility] Comment on above: Performed By: #### Dru SHEA CMP, , 2776-09 ####[facility] ([id number])[address], [address], [place] [address] ABSOLUTE NEUTROPHIL 7.8 X10E9/L High 1.5-6.6 [facility] Comment on above: Performed By: #### Dru SHEA CMP, , 2776-09 ####[facility] ([id number])[address], [address] [place] [address] Basophils/100 WBC (Bld) 1.1 % Normal [facility] Comment on above: Performed By: #### Dru SHEA CMP, , 2776-09 ####[facility] ([id number])[address], [address] [place] [address] Eosinophils (Bld) [#/Vol] 0.2 10*3/uL Normal 0.0-0.4 [facility] Comment on above: Performed By: #### Dru SHEA CMP, , 2776-09 ####[facility] ([id number])[address], [address] [place] [address] Eosinophils/100 WBC (Bld) 2.1 % Normal [facility] Comment on above: Performed By: #### Dru BCA CMP, , 2776-09 ####[facility] ([id number])[address], [address], [place] [address] Erythrocyte distribution width (RBC) [Ratio] 21.5 % High 11.5-15.0 [facility] Comment on above: Performed By: #### C MONSE CMP, , 2776-09 ####[facility] ([id number])[address], [address], [place] [address] Hematocrit (Bld) [Volume fraction] 26.7 % Low 35-47 [facility] Comment on above: Performed By: #### C MONSE CMP, , 2776-09 ####[facility] ([id number])[address], [address], [place] [address] Hemoglobin (Bld) [Mass/Vol] 9.0 g/dL Low 11.7-15.5 [facility] Comment on above: Performed By: #### C MONSE, CMP, , 2776-09 ####[facility] ([id number])[address] [address] [address] Lymphocytes (Bld) [#/Vol] 1.0 10*3/uL Normal 1.0-3.5 [facility] Comment on above: Performed By: #### C MONSE CMP, , 2776-09 ####[facility] ([id number])[address] [address] [address] Lymphocytes/100 WBC (Bld) 9.8 % Normal [facility] Comment on above: Performed By: #### C MONSE, CMP, , 2776-09 ####[facility] ([id number])[address], [address], [place] [address] MCH (RBC) [Entitic mass] 29.9 pg Normal 27-34 [facility] Comment on above: Performed By: #### C BCA, CMP, , 2776-09 ####[facility] ([id number])[address], [address] [address] MCHC (RBC) [Mass/Vol] 33.8 g/dL Normal 32-36 [facility] Comment on above: Performed By: #### C BCA, CMP, , 2776-09 ####[facility] ([id number])[address], [address] [address] MCV (RBC) [Entitic vol] 89 fL Normal 80-100 [facility] Comment on above: Performed By: #### C BCA, CMP, , 2776-09 ####[facility] ([id number])[address], [address], [place] [address] Monocytes (Bld) [#/Vol] 0.8 10*3/uL Normal 0-0.9 [facility] Comment on above: Performed By: #### C BCA, CMP, , 2776-09 ####[facility] ([id number])[address], [address] [address] Monocytes/100 WBC (Bld) 7.7 % Normal [facility] Comment on above: Performed By: #### C BCA, CMP, , 2776-09 ####[facility] ([id number])[address], [address] [address] Neutrophils/100 WBC (Bld) 79.3 % Normal [facility] Comment on above: Performed By: #### C BCA, CMP, , 2776-09 ####[facility] ([id number])[address], [address] [address] Platelet mean volume (Bld) [Entitic vol] 10.0 fL Normal 7-12 [facility] Comment on above: Performed By: #### C BCA, CMP, , 2776-09 ####[facility] ([id number])[address] [address], [place] [address] Platelets (Bld) [#/Vol] 165 10*3/uL Normal 150-450 [facility] Comment on above: Performed By: #### C BCA, CMP, , 2776-09 ####[facility] ([id number])[address], [address] [place] [address] RBC COUNT 3.01 X10E12/L Low 3.80-5.20 [facility] Comment on above: Performed By: #### C BCA, CMP, , 2776-09 ####[facility] ([id number])[address] [address] WBC (Bld) [#/Vol] 9.8 10*3/uL Normal 4.0-11.0 [facility] Comment on above: Performed By: #### C BCA, CMP, , 2776-09 ####[facility] ([id number])[address] [address] [place] [address], [place] [address] COMPREHENSIVE METABOLIC PANE Elver 11-21-2023 Albumin [Mass/Vol] 3.0 g/dL Low 3.2-5.3 [facility] Comment on above: Performed By: #### C BCA, CMP, , 2776-09 ####[facility] ([id number])[address] [address], [place] [address] ALP [Catalytic activity/Vol] 148 U/L High 39-130 [facility] Comment on above: Performed By: #### C BCA, CMP, , 2776-09 ####[facility] ([id number])[address], [address] [place] [address], [place] [address] ALT [Catalytic activity/Vol] 23 U/L Normal 0-31 [facility] Comment on above: Performed By: #### C BCA, CMP, , 2776-09 ####[facility] ([id number])[address], [address], [place] [address] Anion gap [Moles/Vol] 12 mmol/L Normal 5-15 [facility] Comment on above: Performed By: #### C BCA, CMP, , 2776-09 ####[facility] ([id number])[address], [address], [place] [address] AST [Catalytic activity/Vol] 26 U/L Normal 0-41 [facility] Comment on above: Performed By: #### C BCA, CMP, , 2776-09 ####[facility] ([id number])[address], [address], [place] [address] Bilirubin [Mass/Vol] 0.8 mg/dL Normal 0.3-1.2 [facility] Comment on above: Performed By: #### C BCA, CMP, , 2776-09 ####[facility] ([id number])[address], [address], [place] [address] Calcium [Mass/Vol] 8.5 mg/dL Normal 8.5-10.5 [facility] Comment on above: Performed By: #### C BCA, CMP, , 2776-09 ####[facility] ([id number])[address], [address], [place] [address] Chloride [Moles/Vol] 99 mmol/L Normal 98-109 [facility] Comment on above: Performed By: #### C BCA, CMP, , 2776-09 ####[facility] ([id number])[address], [address], [place] [address] CO2 [Moles/Vol] 29 mmol/L Normal 22-32 [facility] Comment on above: Performed By: #### C BCA, CMP, , 2776-09 ####[facility] ([id number])[address] [address], [place] [address] Creatinine [Mass/Vol] 1.34 mg/dL High 0.40-1.00 [facility] Comment on above: Result Comment: METH OD TRACEABLE TO IDMS STANDARD Performed By: #### C BCA, CMP, , 2776-09 ####[facility] ([id number])[address] [address] GFR/1.73 sq M.predicted among non-blacks MDRD (S/P/Bld) [Vol rate/Area] 44 mL/min/{1.73_m2} Low >59 [facility] Comment on above: Result Comment: Repo rted eGFR is based on theCKD-EPI 2020 equation that doesnot use a race coefficient. Performed By: #### C BCA, CMP, , 2776-09 ####[facility] ([id number])[address] [address] [place] [address] Glucose [Mass/Vol] 173 mg/dL High 65-99 [facility] Comment on above: Performed By: #### C BCA, CMP, , 2776-09 ####[facility] ([id number])[address] [address], [place] [address] Potassium [Moles/Vol] 4.1 mmol/L Normal 3.5-5.0 [facility] Comment on above: Performed By: #### C BCA, CMP, , 2776-09 ####[facility] ([id number])[address] [address], [place] [address] Protein [Mass/Vol] 6.3 g/dL Normal 6.0-8.0 [facility] Comment on above: Performed By: #### C TOO SHEA, , 2776-09 ####[facility] ([id number])[address], [address], [place] [address] Sodium [Moles/Vol] 140 mmol/L Normal 134-146 [facility] Comment on above: Performed By: #### C TOO SHEA, , 2776-09 ####[facility] ([id number])[address], [address], [place] [address] Urea nitrogen [Mass/Vol] 82 mg/dL High 5-27 [facility] Comment on above: Performed By: #### C TOO SHEA, , 2776-09 ####[facility] ([id number])[address], [address] [place] [address] Glucose Glucometer (BldC) [M ass/Vol]on 11-21-2023 Glucose [Mass/Vol] 177 mg/dL High 65-99 [facility] Glucose [Mass/Vol] 168 mg/dL High 65-99 [facility] Glucose [Mass/Vol] 169 mg/dL High 65-99 [facility] Glucose [Mass/Vol] 196 mg/dL High 65-99 [facility] MAGNESIUMon 11-21-2023 Magnesium [Mass/Vol] 2.0 mg/dL Normal 1.8-2.6 [facility] Comment on above: Performed By: #### C MONSE, CMP, , 2776-09 ####[facility] ([id number])[address], [address], [place] [address] Magnesium Ionized ISE (Bld) [Moles/Vol]on 11-21-2023 Magnesium [Moles/Vol] 0.57 mmol/L Normal 0.45-0.74 [facility] Comment on above: Result Comment: NEW REFERENCE RANGE Performed By: #### 7 3572-0 ####[facility] ([id number])[address], [address], [place] [address] PHOSPHORUSon 11-21-2023 Phosphate [Mass/Vol] 2.4 mg/dL Normal 2.4-4.9 [facility] Comment on above: Performed By: #### C BCA, CMP, , 2776-09 ####[facility] ([id number])[address], [address], [place] [address] XR CHEST 1 VWon 11-21-2023 XR CHEST 1 VW Normal [facility] COMPREHENSIVE METABOLIC PANE Elver 11-20-2023 Albumin [Mass/Vol] 2.8 g/dL Low 3.2-5.3 [facility] Comment on above: Performed By: #### C BCA, CMP, , 2776-09 ####[facility] ([id number])[address], [address], [place] [address] ALP [Catalytic activity/Vol] 138 U/L High 39-130 [facility] Comment on above: Performed By: #### C BCA, CMP, , 2776-09 ####[facility] ([id number])[address], [address], [place] [address] ALT [Catalytic activity/Vol] 19 U/L Normal 0-31 [facility] Comment on above: Performed By: #### C BCA, CMP, , 2776-09 ####[facility] ([id number])[address], [address], [place] [address] Anion gap [Moles/Vol] 11 mmol/L Normal 5-15 [facility] Comment on above: Performed By: #### C BCA, CMP, , 2776-09 ####[facility] ([id number])[address], [address], [place] [address] AST [Catalytic activity/Vol] 21 U/L Normal 0-41 [facility] Comment on above: Performed By: #### C BCA, CMP, , 2776-09 ####[facility] ([id number])[address], [address], [place] [address] Bilirubin [Mass/Vol] 0.7 mg/dL Normal 0.3-1.2 [facility] Comment on above: Performed By: #### C BCA, CMP, , 2776-09 ####[facility] ([id number])[address] [address] Calcium [Mass/Vol] 7.9 mg/dL Low 8.5-10.5 [facility] Comment on above: Performed By: #### C BCA, CMP, , 2776-09 ####[facility] ([id number])[address] [address] Chloride [Moles/Vol] 105 mmol/L Normal 98-109 [facility] Comment on above: Performed By: #### C BCA, CMP, , 2776-09 ####[facility] ([id number])[address] [address] CO2 [Moles/Vol] 28 mmol/L Normal 22-32 [facility] Comment on above: Performed By: #### C BCA, CMP, , 2776-09 ####[facility] ([id number])[address] [address] [address] Creatinine [Mass/Vol] 1.24 mg/dL High 0.40-1.00 [facility] Comment on above: Result Comment: METH OD TRACEABLE TO IDMS STANDARD Performed By: #### C BCA, CMP, , 2776-09 ####[facility] ([id number])[address] [address] GFR/1.73 sq M.predicted among non-blacks MDRD (S/P/Bld) [Vol rate/Area] 48 mL/min/{1.73_m2} Low >59 [facility] Comment on above: Result Comment: Repo rted eGFR is based on theCKD-EPI 2020 equation that doesnot use a race coefficient. Performed By: #### C TOO SHEA, , 2776-09 ####[facility] ([id number])[address], [address] [address] Glucose [Mass/Vol] 185 mg/dL High 65-99 [facility] Comment on above: Performed By: #### C TOO SHEA, , 2776-09 ####[facility] ([id number])[address], [place] [address] Glucose Glucometer (BldC) [M ass/Vol]on 11-20-2023 Glucose [Mass/Vol] 183 mg/dL High 65-99 [facility] Glucose [Mass/Vol] 175 mg/dL High 65-99 [facility] MAGNESIUMon 11-20-2023 Magnesium [Mass/Vol] 2.0 mg/dL Normal 1.8-2.6 [facility] Comment on above: Performed By: #### C TOO SHEA, , 2776-09 ####[facility] ([id number])[address] [address] PHOSPHORUSon 11-20-2023 Phosphate [Mass/Vol] 3.1 mg/dL Normal 2.4-4.9 [facility] Comment on above: Performed By: #### C TOO SHEA, , 2776-09 ####[facility] ([id number])[address], [address], [place] [address] POTASSIUMon 11-20-2023 Potassium [Moles/Vol] 4.9 mmol/L Normal 3.5-5.0 [facility] Comment on above: Performed By: #### 2 823-3 ####[facility] ([id number])[address], [address], [place] [address] Potassium [Moles/Vol] 3.8 mmol/L Normal 3.5-5.0 [facility] Comment on above: Performed By: #### 2 823-3 ####[facility] ([id number])[address], [address] [place] [address] XR CHEST 1 VWon 11-20-2023 XR CHEST 1 VW Normal [facility] 36on 11-07-2023 36 Patient on schedule for hospital follow up with ID. According to her chart she is currently in the hospital and is scheduled for surgery tomorrow 11/08. Will reach out to her in a few days to reschedule this visit to a more convenient time. Normal [facility] Telephoneon 11-07-2023 Telephone [phone] Correa 1955 F Date Provider Department Center 11/07/2023 [facility] No family history on file Normal [facility] Glucose Glucometer (BldC) [M ass/Vol]on 10-19-2023 Glucose [Mass/Vol] 198 mg/dL High 65-99 [facility] POTASSIUMon 10-19-2023 Potassium [Moles/Vol] 3.1 mmol/L Low 3.5-5.0 [facility] Comment on above: Performed By: #### [place], [address]173-3, 52323-0, 71669-3, 06809-0, 62703-1, 2157-6, 69819-2, PINR, CBCA, TSHR #### [facility] ([id number]) [address] [place] [address], [place] [address] XR CHEST 1 VWon 10-19-2023 XR CHEST 1 VW XR CHEST 1 VW History: Intubation Technique: A portable single frontal view the chest was obtained. Comparison: 10/19/2023 at 2:54 AM Findings: There is been improved aeration of the left lung since the previous examination. Endotracheal tube remains in place. Has retracted slightly since previous examination but continues to have its tip in the right mainstem bronchus. Retraction of approximately 4 cm is recommended. Impression: * The tip of the endotracheal tube remains in the right mainstem bronchus. Retraction by about 4 cm is recommended. * Improved aeration of the left lung since the prior study. Finalized by Sonya Olson MD on 10/19/2023 3:24 AM Normal [facility] XR CHEST 1 VW XR CHEST 1 VW XR CHEST 1 VW HISTORY: Shortness of breath, respiratory failure COMPARISON: Chest x-ray 10/18/2023 FINDINGS: There is complete interval opacification of the left lung with air bronchograms present. Interval placement of endotracheal tube which terminates in the right mainstem bronchus. Recommend retracting 8 cm. Right chest unremarkable appearing. IMPRESSION: * Complete opacification of the left lung with endotracheal tube tube terminating in the right mainstem bronchus. Recommend retracting 8 cm. Approved by Resident Tanner Licea DO on 10/19/2023 3:01 AM ISonya MD have personally reviewed the image(s) and agree with and/or edited the report Finalized by Sonya Olson MD on 10/19/2023 3:11 AM Normal [facility] ARTERIAL BLOOD GASon 024 [address] TEST Pass Normal [facility] Comment on above: Performed By: #### C , 04664-3, 35277-4, 12956-9, 28619-9, 63767-0, 2157-6, 71256-6, PINR, CBCA, TSHR #### [facility] ([id number]) [address] [place] [address], [place] [address] Base excess Calc (Bld) [Moles/Vol] 9.0 mmol/L High 0.0-2.0 [facility] Comment on above: Performed By: #### C , 64348-3, 00262-6, 22985-3, 71048-7, 37787-2, 2157-6, 69474-2, PINR, CBCA, TSHR #### [facility] ([id number]) [address] [place] [address] [place] [address] Body temperature 98.6 [degF] Normal 37.0 [facility] Comment on above: Performed By: #### C MP, 62284-3, 92376-3, 02326-1, 77703-6, 21111-1, 2157-6, 84999-6, PINR, CBCA, TSHR #### [facility] ([id number]) [address] [place] [address] HCO3 (Bld) [Moles/Vol] 29.3 mmol/L High 22-26 [facility] Comment on above: Performed By: #### C MP, 25703-4, 26935-3, 30949-7, 00110-9, 67177-8, 2157-6, 32414-1, PINR, CBCA, TSHR #### [facility] ([id number]) [address] [place] [address] Oxygen (Bld) [Partial pressure] 117 mm[Hg] High 80-100 [facility] Comment on above: Performed By: #### C MP, 60611-2, 99822-9, 74363-6, 71467-2, 87024-2, 2157-6, 10225-0, PINR, CBCA, TSHR #### [facility] ([id number]) [address] [place] [address] [place] [address] Oxygen saturation in Blood 99.0 % Normal >90 [facility] Comment on above: Performed By: #### C MP, 92511-4, 27224-8, 77748-2, 92611-7, 05400-7, 2157-6, 08020-3, PINR, CBCA, TSHR #### [facility] ([id number]) [address] [place] [address] [place] [address] OXYGEN SOURCE [place] [facility] Comment on above: Performed By: #### C MP, 60442-4, 76513-4, 16808-4, 89835-0, 85719-3, 2157-6, 14289-5, PINR, CBCA, TSHR #### [facility] ([id number]) [address] [place] [address] PCO2 26.8 MMHG Low 35-45 [facility] Comment on above: Performed By: #### C MP, 44090-3, 28981-8, 32273-6, 42414-8, 39009-7, 2157-6, 12414-9, PINR, CBCA, TSHR #### [facility] ([id number]) [address] [place] [address] pH (Bld) 7.646 [pH] Critically high 7.350-7.450 [facility] Comment on above: Performed By: #### C MP, 94922-5, 25641-7, 89971-2, 72430-6, 25410-2, 2157-6, 50594-9, PINR, CBCA, TSHR #### [facility] ([id number]) [address] [place] [address] SAMPLE SITE RBrach [facility] Comment on above: Performed By: #### C MP, 69807-6, 87410-3, 88284-9, 22626-3, 26383-7, 2157-6, 31112-1, PINR, CBCA, TSHR #### [facility] ([id number]) [address] [place] [address] SAMPLE TYPE ARTERIAL [facility] Comment on above: Performed By: #### C MP, 17153-9, 83188-9, 54100-3, 12194-1, 10949-6, 2157-6, 76514-4, PINR, CBCA, TSHR #### [facility] ([id number]) [address] [place] [address] BASIC METABOLIC PANLon 10-18 Anion gap [Moles/Vol] 17 mmol/L High 5-15 [facility] Comment on above: Performed By: #### C MP, 17251-9, 67703-9, 17282-1, 61637-8, 04836-1, 2157-6, 14112-5, PINR, CBCA, TSHR #### [facility] ([id number]) [address] [place] [address] 43505 Calcium [Mass/Vol] 8.4 mg/dL Low 8.5-10.5 [facility] Comment on above: Performed By: #### [place], 53737-1, 59668-4, 17789-6, 64404-9, 75377-0, 2157-6, 02154-4, PINR, CBCA, TSHR #### [facility] ([id number]) [address] [place] [address] 40664 Chloride [Moles/Vol] 95 mmol/L Low 98-109 [facility] Comment on above: Performed By: #### C MP, 70908-7, 45923-1, 90589-0, 96196-2, 07113-9, 2157-6, 62554-9, PINR, CBCA, TSHR #### [facility] ([id number]) [address] [place] [address] 35088 CO2 [Moles/Vol] 29 mmol/L Normal 22-32 [facility] Comment on above: Performed By: #### C MP, 31357-5, 50052-1, 73722-6, 06030-6, 73395-8, 2157-6, 02170-0, PINR, CBCA, TSHR #### [facility] ([id number]) [address] [place] [address] [place] [address] Creatinine [Mass/Vol] 2.38 mg/dL High 0.40-1.00 [facility] Comment on above: Result Comment: METH OD TRACEABLE TO IDMS STANDARD Performed By: #### C ROSALBA, 12940-0, 51452-1, 09759-8, 50101-9, 07745-1, 2157-6, 61404-9, PINR, CBCA, TSHR #### [facility] ([id number]) [address] [place] [address] 33470 GFR/1.73 sq M.predicted among non-blacks MDRD (S/P/Bld) [Vol rate/Area] 22 mL/min/{1.73_m2} Low >59 [facility] Comment on above: Result Comment: Reported eGFR is based on the CKD-EPI 2020 equation that does not use a race coefficient. Performed By: #### C ROSALBA, 40586-8, 67489-3, 06501-2, 95440-2, 68465-9, 2157-6, 51566-3, PINR, CBCA, TSHR #### [facility] ([id number]) [address] [place] [address] 87765 Glucose [Mass/Vol] 238 mg/dL High 65-99 [facility] Comment on above: Performed By: #### C ROSALBA, 76887-4, 33318-2, 94630-7, 78738-9, 64094-7, 2157-6, 75342-6, PINR, CBCA, TSHR #### [facility] ([id number]) [address] [place] [address] 14726 Sodium [Moles/Vol] 141 mmol/L Normal 134-146 [facility] Comment on above: Performed By: #### C MP, 77594-9, 10931-1, 68407-6, 26525-3, 33500-9, 2157-6, 35970-5, PINR, CBCA, TSHR #### [facility] ([id number]) [address] [place] [address] 04985 Urea nitrogen [Mass/Vol] 139 mg/dL High 5-27 [facility] [facility] Comment on above: Performed By: #### C MP, 89587-2, 46614-8, 55105-2, 15468-6, 44490-5, 2157-6, 85127-7, PINR, CBCA, TSHR #### [facility] ([id number]) [address] [place] [address] 21121 Potassium [Moles/Vol] 2.6 mmol/L Critically low 3.5-5.0 [facility] Comment on above: Performed By: #### C ROSALBA, 52047-9, 30331-1, 28332-3, 68786-7, 89341-2, 2157-6, 23545-9, PINR, CBCA, TSHR #### [facility] ([id number]) [address] [place] [address] 93789 BLOOD CULTUREon 10-18-2023 Bacteria identified Aer cx Nom (Bld) SPECIMEN NOTES R WRIST CULTURE RESULTS NO GROWTH 5 DAYS Normal [facility] Comment on above: Performed By: #### C MP, 08506-5, 21802-0, 74153-7, 36095-1, 76191-3, 2157-6, 25350-6, PINR, CBCA, TSHR #### [facility] ([id number]) [address] [place] [address] 72975 Bacteria identified Aer cx Nom (Bld) SPECIMEN NOTES LAC CULTURE RESULTS NO GROWTH 5 DAYS Normal [facility] Comment on above: Performed By: #### C MP, 61384-8, 81742-5, 63162-4, 43402-2, 17859-5, 2157-6, 58634-2, PINR, CBCA, TSHR #### [facility] ([id number]) [address] [place] [address] 20976 CBC AND AUTO DIFFon 10-18-19 24 ABSOLUTE BASOPHIL 0.0 X10E9/L Normal 0.0-0.2 [facility] Comment on above: Performed By: #### C MP, 01682-6, 11880-1, 54877-1, 48179-3, 55410-6, 2157-6, 76388-4, PINR, CBCA, TSHR #### [facility] ([id number]) [address] [place] [address] 28133 ABSOLUTE NEUTROPHIL 5.5 X10E9/L Normal 1.5-6.6 [facility] Comment on above: Performed By: #### C MP, 14048-9, 34413-3, 46265-6, 92592-5, 64536-0, 2157-6, 20112-4, PINR, CBCA, TSHR #### [facility] ([id number]) [address] [place] [address] 15403 Basophils/100 WBC (Bld) 0.5 % Normal [facility] Comment on above: Performed By: #### C MP, 66820-9, 28076-8, 54996-2, 11013-4, 77736-2, 2157-6, 46388-6, PINR, CBCA, TSHR #### [facility] ([id number]) [address] [place] [address] 05886 Eosinophils (Bld) [#/Vol] 0.1 10*3/uL Normal 0.0-0.4 [facility] Comment on above: Performed By: #### C MP, 43646-3, 00314-9, 94780-3, 66655-1, 31769-6, 2157-6, 72681-0, PINR, CBCA, TSHR #### [facility] ([id number]) [address] [place] [address] 40568 Eosinophils/100 WBC (Bld) 1.3 % Normal [facility] Comment on above: Performed By: #### C MP, 63954-4, 38001-8, 42891-7, 47563-5, 43427-2, 2157-6, 01776-9, PINR, CBCA, TSHR #### [facility] ([id number]) [address] [place] [address] 10239 Erythrocyte distribution width (RBC) [Ratio] 17.4 % High 11.5-15.0 [facility] Comment on above: Performed By: #### C MP, 39054-7, 08795-7, 61031-4, 24194-1, 85179-7, 2157-6, 15103-5, PINR, CBCA, TSHR #### [facility] ([id number]) [address] [place] [address] 10425 Hematocrit (Bld) [Volume fraction] 32.1 % Low 35-47 [facility] Comment on above: Performed By: #### C MP, 21608-6, 41222-0, 33763-0, 51911-4, 60139-9, 2157-6, 32840-1, PINR, CBCA, TSHR #### [facility] ([id number]) [address] [place] [address] 46399 Hemoglobin (Bld) [Mass/Vol] 10.6 g/dL Low 11.7-15.5 [facility] Comment on above: Performed By: #### C MP, 71759-4, 67111-3, 68933-7, 58018-4, 13808-2, 2157-6, 68235-3, PINR, CBCA, TSHR #### [facility] ([id number]) [address] [place] [address] 35295 Lymphocytes (Bld) [#/Vol] 0.9 10*3/uL Low 1.0-3.5 [facility] Comment on above: Performed By: #### C MP, 32147-4, 51790-4, 01469-9, 32500-8, 53616-5, 2157-6, 36133-6, PINR, CBCA, TSHR #### [facility] ([id number]) [address] [place] [address] 34130 Lymphocytes/100 WBC (Bld) 12.1 % Normal [facility] Comment on above: Performed By: #### C MP, 03540-7, 11063-3, 61312-6, 55277-1, 83914-0, 2157-6, 10534-4, PINR, CBCA, TSHR #### [facility] ([id number]) [address] [place] [address] 00102 MCH (RBC) [Entitic mass] 30.7 pg Normal 27-34 [facility] Comment on above: Performed By: #### C MP, 97403-8, 70432-5, 50974-6, 28730-5, 21948-8, 2157-6, 75064-0, PINR, CBCA, TSHR #### [facility] ([id number]) [address] [place] [address] 83835 MCHC (RBC) [Mass/Vol] 33.1 g/dL Normal 32-36 [facility] Comment on above: Performed By: #### C MP, 10737-8, 09713-0, 05970-2, 10336-2, 62361-7, 2157-6, 05834-2, PINR, CBCA, TSHR #### [facility] ([id number]) [address] [place] [address] 37769 MCV (RBC) [Entitic vol] 93 fL Normal 80-100 [facility] Comment on above: Performed By: #### C MP, 50977-0, 86162-0, 76909-7, 53195-3, 60421-7, 2157-6, 94712-7, PINR, CBCA, TSHR #### [facility] ([id number]) [address] [place] [address] 62739 Monocytes (Bld) [#/Vol] 0.6 10*3/uL Normal 0-0.9 [facility] Comment on above: Performed By: #### C MP, 65568-2, 38801-6, 59684-5, 02166-5, 62564-1, 2157-6, 64997-3, PINR, CBCA, TSHR #### [facility] ([id number]) [address] [place] [address] 72500 Monocytes/100 WBC (Bld) 8.9 % Normal [facility] Comment on above: Performed By: #### C MP, 42893-8, 64064-9, 15128-6, 31326-3, 66949-0, 2157-6, 54982-5, PINR, CBCA, TSHR #### [facility] ([id number]) [address] [place] [address] 78039 Neutrophils/100 WBC (Bld) 77.2 % Normal [facility] Comment on above: Performed By: #### C MP, 25004-2, 21161-4, 62207-5, 94046-0, 52709-4, 2157-6, 61205-9, PINR, CBCA, TSHR #### [facility] ([id number]) [address] [place] [address] 19543 Platelet mean volume (Bld) [Entitic vol] 10.6 fL Normal 7-12 [facility] Comment on above: Performed By: #### C MP, 27783-0, 72516-0, 30832-9, 73934-7, 81989-9, 2157-6, 15841-2, PINR, CBCA, TSHR #### [facility] ([id number]) [address] [place] [address] 91539 Platelets (Bld) [#/Vol] 131 10*3/uL Low 150-450 [facility] Comment on above: Performed By: #### C MP, 01597-7, 19864-0, 56610-0, 52232-2, 80763-2, 2157-6, 75614-7, PINR, CBCA, TSHR #### [facility] ([id number]) [address] [place] [address] 57637 RBC COUNT 3.47 X10E12/L Low 3.80-5.20 [facility] Comment on above: Performed By: #### C MP, 94320-6, 57630-4, 89506-1, 98432-2, 80134-5, 2157-6, 26593-8, PINR, CBCA, TSHR #### [facility] ([id number]) [address] [place] [address] 26393 WBC (Bld) [#/Vol] 7.2 10*3/uL Normal 4.0-11.0 [facility] Comment on above: Performed By: #### C MP, 64472-4, 44158-1, 69156-1, 65073-9, 36715-7, 2157-6, 40211-9, PINR, CBCA, TSHR #### [facility] ([id number]) [address] [place] [address] [place] [address] COMPREHENSIVE METABOLIC PANE Elver 10-18-2023 Albumin [Mass/Vol] 3.0 g/dL Low 3.2-5.3 [facility] Comment on above: Performed By: #### C MP, 80486-4, 19683-5, 20308-7, 23747-8, 32482-3, 2157-6, 88218-0, PINR, CBCA, TSHR #### [facility] ([id number]) [address] [place] [address] 09986 ALP [Catalytic activity/Vol] 106 U/L Normal 39-130 [facility] Comment on above: Performed By: #### C MP, 62432-0, 62257-7, 05268-2, 05026-1, 89424-1, 2157-6, 12703-0, PINR, CBCA, TSHR #### [facility] ([id number]) [address] [place] [address] 97070 ALT [Catalytic activity/Vol] 18 U/L Normal 0-31 [facility] Comment on above: Performed By: #### C MP, 59724-3, 05737-8, 58125-5, 52646-2, 81562-2, 2157-6, 08681-0, PINR, CBCA, TSHR #### [facility] ([id number]) [address] [place] [address] 82027 AST [Catalytic activity/Vol] 24 U/L Normal 0-41 [facility] Comment on above: Performed By: #### C MP, 58060-1, 45225-1, 54484-7, 41544-1, 01276-6, 2157-6, 02205-8, PINR, CBCA, TSHR #### [facility] ([id number]) [address] [place] [address] 69469 Bilirubin [Mass/Vol] 1.7 mg/dL High 0.3-1.2 [facility] Comment on above: Performed By: #### C MP, 25184-0, 07009-7, 52396-1, 99960-9, 52135-8, 2157-6, 78441-5, PINR, CBCA, TSHR #### [facility] ([id number]) [address] [place] [address] 33535 Calcium [Mass/Vol] 8.1 mg/dL Low 8.5-10.5 [facility] Comment on above: Performed By: #### C MP, 70032-5, 16534-5, 01396-5, 65438-6, 60033-9, 2157-6, 05844-6, PINR, CBCA, TSHR #### [facility] ([id number]) [address] [place] [address] 52978 Chloride [Moles/Vol] 90 mmol/L Low 98-109 [facility] Comment on above: Performed By: #### C MP, 22488-1, 86402-8, 58618-9, 59654-4, 48968-6, 2157-6, 25642-7, PINR, CBCA, TSHR #### [facility] ([id number]) [address] [place] [address] 70932 CO2 [Moles/Vol] 32 mmol/L Normal 22-32 [facility] Comment on above: Performed By: #### C MP, 29155-8, 38759-2, 93534-5, 08579-0, 67347-5, 2157-6, 80545-0, PINR, CBCA, TSHR #### [facility] ([id number]) [address] [place] [address] 03330 Creatinine [Mass/Vol] 2.40 mg/dL High 0.40-1.00 [facility] Comment on above: Result Comment: METH OD TRACEABLE TO IDMS STANDARD Performed By: #### C MP, 80539-2, 43722-2, 80263-1, 34446-4, 94822-0, 2157-6, 53191-0, PINR, CBCA, TSHR #### [facility] ([id number]) [address] [place] [address] 51798 Glucose [Mass/Vol] 279 mg/dL High 65-99 [facility] Comment on above: Performed By: #### C MP, 54354-2, 62703-1, 54309-8, 50534-6, 64728-8, 2157-6, 49541-9, PINR, CBCA, TSHR #### [facility] ([id number]) [address] [place] [address] 34802 Protein [Mass/Vol] 7.6 g/dL Normal 6.0-8.0 [facility] Comment on above: Performed By: #### C MP, 13325-0, 89586-5, 87182-8, 28431-8, 35473-2, 2157-6, 31384-4, PINR, CBCA, TSHR #### [facility] ([id number]) [address] [place] [address] 37980 Sodium [Moles/Vol] 139 mmol/L Normal 134-146 [facility] Comment on above: Performed By: #### C ROSALBA, 97657-2, 97496-9, 93563-2, 37249-5, 35039-2, 2157-6, 96799-0, PINR, CBCA, TSHR #### [facility] ([id number]) [address] [place] [address] 09234 Urea nitrogen [Mass/Vol] 142 mg/dL High 5-27 [facility] Comment on above: Performed By: #### C MP, 86237-9, 56135-9, 23049-4, 87282-0, 09221-3, 2157-6, 93108-1, PINR, CBCA, TSHR #### [facility] ([id number]) [address] [place] [address] 24618 Potassium [Moles/Vol] 2.1 mmol/L Critically low 3.5-5.0 [facility] Comment on above: Performed By: #### C MP, 28769-9, 90465-2, 08134-0, 06828-0, 18562-9, 2157-6, 23217-0, PINR, CBCA, TSHR #### [facility] ([id number]) [address] [place] [address] 11306 Creatinine (U) [Mass/Vol]on 10-18-2023 URINE CREATININE,RDM 14.45 mg/dL Normal [facility] Comment on above: Performed By: #### C ROSALBA, 42384-1, 22058-6, 12019-5, 57306-1, 12092-6, 2157-6, 17621-7, PINR, CBCA, TSHR #### [facility] ([id number]) [address] [place] [address] 61613 Glucose Glucometer (BldC) [M ass/Vol]on 10-18-2023 Glucose [Mass/Vol] 142 mg/dL High 65-99 [facility] Glucose [Mass/Vol] 212 mg/dL High 65-99 [facility] Glucose [Mass/Vol] 311 mg/dL High 65-99 [facility] Lactate (P stan) [Moles/Vol]o n 10-18-2023 LACTATE W/REFLEX 1.8 mmol/L Normal 0.4-2.0 [facility] Comment on above: Result Comment: Result did not trigger repeat Lactate, re-order if needed. Performed By: #### C ROSALBA, 45867-7, 11421-1, 85501-1, 62309-6, 49891-6, 2157-6, 03036-0, PINR, CBCA, TSHR #### [facility] ([id number]) [address] [place] [address] 98928 MAGNESIUMon 10-18-2023 Magnesium [Mass/Vol] 2.2 mg/dL Normal 1.8-2.6 [facility] Comment on above: Performed By: #### C ROSALBA, 16202-1, 40768-8, 56353-9, 91431-4, 60822-3, 2157-6, 07088-5, PINR, CBCA, TSHR #### [facility] ([id number]) [address] [place] [address] 74664 Magnesium [Mass/Vol] 1.8 mg/dL Normal 1.8-2.6 [facility] Comment on above: Performed By: #### C MP, 03619-3, 27322-0, 92914-0, 54917-7, 19380-1, 2157-6, 21549-5, PINR, CBCA, TSHR #### [facility] ([id number]) [address] [place] [address] 05186 MICROALBUMIN - ALBUMIN:CREAT ININE URINE RATIOon 10-18-2023 ALB/CREAT RATIO 2103.3 mg/g creat High 0.0-30.0 [facility] Comment on above: Performed By: #### C MP, 70142-8, 79004-1, 58746-2, 44122-3, 53349-4, 2157-6, 71081-1, PINR, CBCA, TSHR #### [facility] ([id number]) [address] [place] [address] 57310 Albumin DL <= 20 mg/L (U) [Mass/Vol] 27.7 mg/dL High 0.0-1.9 [facility] Comment on above: Performed By: #### C MP, 97552-8, 66044-7, 01487-7, 15420-8, 61987-5, 2157-6, 01811-6, PINR, CBCA, TSHR #### [facility] ([id number]) [address] [place] [address] 66544 URINE CREAT 13.17 mg/dL Normal [facility] Comment on above: Performed By: #### C MP, 81369-3, 24479-0, 24517-7, 65554-2, 93851-6, 2157-6, 12639-7, PINR, CBCA, TSHR #### [facility] ([id number]) [address] [place] [address] 71968 POTASSIUMon 10-18-2023 Potassium [Moles/Vol] 2.7 mmol/L Critically low 3.5-5.0 [facility] Comment on above: Performed By: #### C MP, 23893-2, 65052-1, 82410-1, 81662-6, 81011-5, 2157-6, 01640-2, PINR, CBCA, TSHR #### [facility] ([id number]) [address] [place] [address] 84241 Procalcitonin IA [Mass/Vol]o n 10-18-2023 PROCALCITONIN 3.02 ng/mL High <0.05 [facility] Comment on above: Result Comment: NOTE <0.50 ng/mL - Low risk of severe sepsis and/or septic shock. <2.00 ng/mL - Recommend retesting within 6-24 hours. >2.00 ng/mL - High risk of sepsis and/or septic shock. Performed By: #### C ROSALBA, 72321-2, 13181-0, 09574-7, 97089-4, 94686-0, 2157-6, 67632-9, PINR, CBCA, TSHR #### [facility] ([id number]) [address] [place] [address] 24934 TROPONIN Ion 10-18-2023 Troponin I.cardiac [Mass/Vol] 0.08 ng/mL High 0.00-0.04 [facility] Comment on above: Result Comment: Concentrations greater than or equal to 0.05 ng/ml are considered elevated. Elevations of Troponin may be due to causes other than myocardial ischemia. Recommend serial Troponin testing be performed. Performed By: #### C MP, 64158-4, 44598-1, 65920-4, 23289-5, 33206-3, 2157-6, 84329-5, PINR, CBCA, TSHR #### [facility] ([id number]) [address] [place] [address] 68569 Troponin I.cardiac [Mass/Vol] 0.11 ng/mL High 0.00-0.04 [facility] Comment on above: Result Comment: Concentrations greater than or equal to 0.05 ng/ml are considered elevated. Elevations of Troponin may be due to causes other than myocardial ischemia. Recommend serial Troponin testing be performed. Performed By: #### C MP, 31220-4, 74058-9, 78727-3, 80122-0, 81301-6, 2157-6, 08318-5, PINR, CBCA, TSHR #### [facility] ([id number]) [address] [place] [address] 78922 Troponin I.cardiac [Mass/Vol] 0.09 ng/mL High 0.00-0.04 [facility] Comment on above: Result Comment: Concentrations greater than or equal to 0.05 ng/ml are considered elevated. Elevations of Troponin may be due to causes other than myocardial ischemia. Recommend serial Troponin testing be performed. Performed By: #### C MP, 97806-2, 69484-0, 44811-8, 41755-8, 20829-1, 2157-6, 29071-6, PINR, CBCA, TSHR #### [facility] ([id number]) [address] [place] [address] 47692 URINE SODIUM,RANDOMon 2023 Sodium (U) [Moles/Vol] 94 mmol/L Normal [facility] Comment on above: Performed By: #### C MP, 16911-2, 24967-7, 25428-2, 48509-9, 72153-5, 2157-6, 47257-9, PINR, CBCA, TSHR #### [facility] ([id number]) [address] [place] [address] 85685 CBC AND AUTO DIFFon 10-17-19 24 ABSOLUTE BASOPHIL 0.0 X10E9/L Normal 0.0-0.2 [facility] Comment on above: Performed By: #### C MP, 86242-8, 85091-6, 89186-5, 00044-0, 27183-6, 2157-6, 46104-4, PINR, CBCA, TSHR #### [facility] ([id number]) [address] [place] [address] 68448 ABSOLUTE NEUTROPHIL 6.4 X10E9/L Normal 1.5-6.6 [facility] Comment on above: Performed By: #### C MP, 61065-7, 60663-0, 87950-9, 32871-3, 74753-7, 2157-6, 02528-8, PINR, CBCA, TSHR #### [facility] ([id number]) [address] [place] [address] 16746 Basophils/100 WBC (Bld) 0.4 % Normal [facility] Comment on above: Performed By: #### C MP, 17904-5, 22052-7, 70038-5, 27259-5, 72901-8, 2157-6, 66780-9, PINR, CBCA, TSHR #### [facility] ([id number]) [address] [place] [address] 08118 Eosinophils (Bld) [#/Vol] 0.1 10*3/uL Normal 0.0-0.4 [facility] Comment on above: Performed By: #### C MP, 09357-7, 99306-7, 07897-0, 93282-4, 63744-3, 2157-6, 95797-2, PINR, CBCA, TSHR #### [facility] ([id number]) [address] [place] [address] [place] [address] Eosinophils/100 WBC (Bld) 0.9 % Normal [facility] Comment on above: Performed By: #### C MP, 39919-3, 59389-0, 25700-5, 99932-1, 10230-4, 2157-6, 08030-8, PINR, CBCA, TSHR #### [facility] ([id number]) [address] [place] [address] 13132 Erythrocyte distribution width (RBC) [Ratio] 17.5 % High 11.5-15.0 [facility] Comment on above: Performed By: #### C ROSALBA, 89550-1, 18809-9, 01878-2, 62818-9, 66451-0, 2157-6, 33558-2, PINR, CBCA, TSHR #### [facility] ([id number]) [address] [place] [address] 95092 Hematocrit (Bld) [Volume fraction] 31.0 % Low 35-47 [facility] Comment on above: Performed By: #### C ROSALBA, 59033-1, 39919-6, 55907-9, 91355-4, 61972-6, 2157-6, 17590-5, PINR, CBCA, TSHR #### [facility] ([id number]) [address] [place] [address] 32730 Hemoglobin (Bld) [Mass/Vol] 10.3 g/dL Low 11.7-15.5 [facility] Comment on above: Performed By: #### C MP, 13248-9, 29342-9, 46876-5, 73985-1, 02486-4, 2157-6, 28896-6, PINR, CBCA, TSHR #### [facility] ([id number]) [address] [place] [address] 72192 Lymphocytes (Bld) [#/Vol] 0.9 10*3/uL Low 1.0-3.5 [facility] Comment on above: Performed By: #### C MP, 10983-0, 76810-3, 07175-7, 54242-2, 32206-2, 2157-6, 77479-8, PINR, CBCA, TSHR #### [facility] ([id number]) [address] [place] [address] 59605 Lymphocytes/100 WBC (Bld) 10.7 % Normal [facility] Comment on above: Performed By: #### C MP, 86844-6, 69002-7, 62855-8, 11126-4, 58949-8, 2157-6, 55150-6, PINR, CBCA, TSHR #### [facility] ([id number]) [address] [place] [address] 51696 MCH (RBC) [Entitic mass] 30.7 pg Normal 27-34 [facility] Comment on above: Performed By: #### C MP, 76535-3, 93258-5, 49671-1, 62933-8, 45072-3, 2157-6, 54925-7, PINR, CBCA, TSHR #### [facility] ([id number]) [address] [place] [address] [place] [address] MCHC (RBC) [Mass/Vol] 33.3 g/dL Normal 32-36 [facility] Comment on above: Performed By: #### C MP, 11514-7, 52230-6, 84123-3, 02967-2, 04359-6, 2157-6, 45937-3, PINR, CBCA, TSHR #### [facility] ([id number]) [address] [place] [address], [place] [address] MCV (RBC) [Entitic vol] 92 fL Normal 80-100 [facility] Comment on above: Performed By: #### C MP, 63242-8, 88068-3, 13415-6, 04926-8, 96780-9, 2157-6, 97451-1, PINR, CBCA, TSHR #### [facility] ([id number]) [address] [place] [address] 30905 Monocytes (Bld) [#/Vol] 0.7 10*3/uL Normal 0-0.9 [facility] Comment on above: Performed By: #### C MP, 12717-4, 34295-8, 47625-3, 64307-9, 29418-5, 2157-6, 36358-2, PINR, CBCA, TSHR #### [facility] ([id number]) [address] [place] [address] 46774 Monocytes/100 WBC (Bld) 8.7 % Normal [facility] Comment on above: Performed By: #### C MP, 71144-4, 40848-6, 03577-9, 07176-6, 14263-4, 2157-6, 09106-7, PINR, CBCA, TSHR #### [facility] ([id number]) [address] [place] [address] 89681 Neutrophils/100 WBC (Bld) 79.3 % Normal [facility] Comment on above: Performed By: #### C MP, 91893-1, 75789-9, 92507-4, 50650-5, 06993-9, 2157-6, 24403-2, PINR, CBCA, TSHR #### [facility] ([id number]) [address] [place] [address] 40863 Platelet mean volume (Bld) [Entitic vol] 10.4 fL Normal 7-12 [facility] Comment on above: Performed By: #### C MP, 43800-3, 78002-4, 10662-4, 77427-4, 99717-8, 2157-6, 48618-5, PINR, CBCA, TSHR #### [facility] ([id number]) [address] [place] [address] 47134 Platelets (Bld) [#/Vol] 144 10*3/uL Low 150-450 [facility] Comment on above: Performed By: #### C MP, 89366-8, 29111-6, 84169-9, 60614-6, 90744-9, 2157-6, 54469-4, PINR, CBCA, TSHR #### [facility] ([id number]) [address] [place] [address] 58104 RBC COUNT 3.37 X10E12/L Low 3.80-5.20 [facility] Comment on above: Performed By: #### C ROSALBA, 43414-6, 91248-6, 71169-6, 67470-9, 39061-0, 2157-6, 53995-4, PINR, CBCA, TSHR #### [facility] ([id number]) [address] [place] [address] 74977 WBC (Bld) [#/Vol] 8.1 10*3/uL Normal 4.0-11.0 [facility] Comment on above: Performed By: #### C ROSALBA, 20189-2, 42705-7, 01324-6, 95619-6, 98519-8, 2157-6, 68056-6, PINR, CBCA, TSHR #### [facility] ([id number]) [address] [place] [address] 62264 COMPREHENSIVE METABOLIC PANE [place]ver 10-17-2023 Albumin [Mass/Vol] 2.9 g/dL Low 3.2-5.3 [facility] Comment on above: Performed By: #### C ROSALBA, 41032-2, 49509-5, 99677-4, 24989-9, 56804-5, 2157-6, 25512-8, PINR, CBCA, TSHR #### [facility] ([id number]) [address] [place] [address] 74329 ALP [Catalytic activity/Vol] 115 U/L Normal 39-130 [facility] Comment on above: Performed By: #### C MP, 74942-1, 14015-2, 17290-8, 05674-6, 30008-5, 2157-6, 08612-3, PINR, CBCA, TSHR #### [facility] ([id number]) [address] [place] [address] 20745 ALT [Catalytic activity/Vol] 18 U/L Normal 0-31 [facility] Comment on above: Performed By: #### C MP, 69383-4, 26776-7, 71919-0, 08490-0, 03961-4, 2157-6, 55067-5, PINR, CBCA, TSHR #### [facility] ([id number]) [address] [place] [address] 22216 Anion gap [Moles/Vol] 17 mmol/L High 5-15 [facility] Comment on above: Performed By: #### C MP, 59466-7, 05693-1, 29780-3, 68794-7, 66286-3, 2157-6, 02437-9, PINR, CBCA, TSHR #### [facility] ([id number]) [address] [place] [address] 46267 AST [Catalytic activity/Vol] 29 U/L Normal 0-41 [facility] Comment on above: Performed By: #### C MP, 71918-4, 92006-5, 64468-2, 34229-2, 27726-0, 2157-6, 36971-2, PINR, CBCA, TSHR #### [facility] ([id number]) [address] [place] [address] 08986 Bilirubin [Mass/Vol] 1.5 mg/dL High 0.3-1.2 [facility] Comment on above: Performed By: #### C MP, 08633-1, 01308-0, 34968-1, 82355-1, 01356-0, 2157-6, 57489-1, PINR, CBCA, TSHR #### [facility] ([id number]) [address] [place] [address] 29458 Calcium [Mass/Vol] 8.0 mg/dL Low 8.5-10.5 [facility] Comment on above: Performed By: #### C MP, 62984-4, 08999-4, 60654-1, 94612-4, 29586-8, 2157-6, 71266-7, PINR, CBCA, TSHR #### [facility] ([id number]) [address] [place] [address] 24215 Chloride [Moles/Vol] 87 mmol/L Low 98-109 [facility] Comment on above: Performed By: #### C MP, 76144-5, 78537-5, 08861-3, 93257-4, 19180-5, 2157-6, 64843-8, PINR, CBCA, TSHR #### [facility] ([id number]) [address] [place] [address] 76846 CO2 [Moles/Vol] 30 mmol/L Normal 22-32 [facility] Comment on above: Performed By: #### C MP, 22643-9, 64473-9, 85971-8, 36275-9, 86057-5, 2157-6, 02641-4, PINR, CBCA, TSHR #### [facility] ([id number]) [address] [place] [address] 76262 Creatinine [Mass/Vol] 2.64 mg/dL High 0.40-1.00 [facility] Comment on above: Result Comment: METH OD TRACEABLE TO IDMS STANDARD Performed By: #### C MP, 21560-4, 65423-0, 84726-1, 49255-2, 98096-0, 2157-6, 32099-6, PINR, CBCA, TSHR #### [facility] ([id number]) [address] [place] [address] 57002 GFR/1.73 sq M.predicted among non-blacks MDRD (S/P/Bld) [Vol rate/Area] 19 mL/min/{1.73_m2} Low >59 [facility] Comment on above: Result Comment: Reported eGFR is based on the CKD-EPI 2020 equation that does not use a race coefficient. Performed By: #### C ROSALBA, 82304-9, 90488-1, 09329-1, 24402-4, 18530-6, 2157-6, 66186-7, PINR, CBCA, TSHR #### [facility] ([id number]) [address] [place] [address] 01860 Glucose [Mass/Vol] 381 mg/dL High 65-99 [facility] Comment on above: Performed By: #### C ROSALBA, 82115-0, 49332-2, 03167-8, 63519-4, 79515-3, 2157-6, 78681-7, PINR, CBCA, TSHR #### [facility] ([id number]) [address] [place] [address] 07013 Potassium [Moles/Vol] 2.1 mmol/L Critically low 3.5-5.0 [facility] Comment on above: Performed By: #### C ROSALBA, 96727-4, 71996-5, 17309-2, 62094-5, 21061-9, 2157-6, 12600-3, PINR, CBCA, TSHR #### [facility] ([id number]) [address] [place] [address] 07073 Protein [Mass/Vol] 7.6 g/dL Normal 6.0-8.0 [facility] Comment on above: Performed By: #### C ROSALBA, 21940-2, 99077-9, 88706-6, 24456-5, 71160-2, 2157-6, 53257-6, PINR, CBCA, TSHR #### [facility] ([id number]) [address] [place] [address] 91184 Sodium [Moles/Vol] 134 mmol/L Normal 134-146 [facility] Comment on above: Performed By: #### [place], 21126-9, 30032-5, 44885-2, 57502-6, 53869-4, 2157-6, 41445-5, PINR, CBCA, TSHR #### [facility] ([id number]) [address] [place] [address] 17671 Urea nitrogen [Mass/Vol] 144 mg/dL High 5-27 [facility] Comment on above: Performed By: #### C MP, 69587-6, 37991-3, 07399-1, 80518-3, 73418-9, 2157-6, 58552-8, PINR, CBCA, TSHR #### [facility] ([id number]) [address] [place] [address] ABDOMEN AND PELVIS WO CON Ton 10-17-2023 CT ABDOMEN AND PELVIS WO CONT CT ABDOMEN AND PELVIS WO CONT CT ABDOMEN AND PELVIS WO CONT CLINICAL INFORMATION: 68 years old Female with transient change in mentation, hyperglycemia, sacral wound concern for deep infection. TECHNIQUE/PROCEDURE: CT Abdomen and Pelvis without intravenous contrast. All CT scans at this facility use dose modulation, iterative reconstruction, and/or weight based dosing when appropriate to reduce radiation dose to as low as reasonably achievable. Evaluation of solid organs and vasculature is compromised due to lack of IV contrast. Diagnostic quality: Satisfactory COMPARISON: No relevant prior studies available. FINDINGS: Mild dependent atelectasis. Heavy calcification of the coronary vessels. No pericardial effusion. No focal liver lesion. Cholelith within the neck of the gallbladder without gallbladder wall thickening or pericholecystic fluid. No biliary dilatation. Adrenal glands, spleen, and pancreas are unremarkable. No discrete renal lesion on this noncontrast exam. There is a 0.2 cm nonobstructive calculus in the upper pole of the right kidney. No ureteral calculi visualized. Mild bilateral hydroureteronephrosis without discrete downstream calcified stone. Urinary bladder is distended with urine. Uterus is present and unremarkable. Heavy calcification of the abdominal aorta, iliac arteries, celiac trunk, SMA, proximal renal arteries, and splenic artery. Intraluminal evaluation is compromised due to lack of IV contrast. No hiatal hernia. Nonspecific bowel gas pattern. Small large bowel are normal in caliber. Appendix is present and unremarkable. Mild fecal burden. Diverticulosis of the sigmoid colon without evidence of acute diverticulitis. No pneumonia peritoneum. There is a soft tissue normality adjacent to the coccyx with multiple foci of subcutaneous gas that extends to the rectal fascia. DISH of the lower thoracic spine. Multilevel intervertebral disc space narrowing with associated degenerative endplate changes throughout the lumbar spine. Retrolisthesis of L5 on S1. Degenerative change of bilateral hip joints, left greater than right. IMPRESSION: * Soft tissue abnormality in the posterior pelvic soft tissues just inferior to the level of the coccyx with the subcutaneous gas extends to the rectal fascia, concerning for wound. * Heavy atherosclerotic disease throughout the abdominal vessels. * Diverticulosis of the sigmoid colon without evidence of acute diverticulitis. * Mild bilateral hydroureteronephrosis without discrete stone. There is moderate dilatation. Obstruction. Clinical correlation is advised. * Cholelithiasis. Approved by Resident Salbador Qiu DO on 10/17/2023 5:26 PM Carmen Lang MD have personally reviewed the image(s) and agree with and/or edited the report Finalized by Carmen Gaviria MD on 10/17/2023 5:47 PM Normal [facility] CT BRAIN WO CONTon 4 CT BRAIN WO CONT CT BRAIN WO CONT CT BRAIN WO CONT CLINICAL INFORMATION: 68 years old Female with transient change in mentation.. COMPARISON: CT brain without contrast dated 09/27/2023. TECHNIQUE: CT brain without intravenous contrast. Automated exposure control was utilized. All CT scans at this facility use dose modulation, iterative reconstruction, and/or weight based dosing when appropriate to reduce radiation dose to as low as reasonably achievable. FINDINGS: No shift of midline structures. No acute intracranial blood products or fluid collections. No loss of medrano-white differentiation. Hypoattenuation in the periventricular and deep white matter, likely related to chronic microvascular ischemic disease. Mildly prominent ventricles and cisterns, appropriate size for patient's age. Brainstem and cerebellum are unremarkable. Orbits and soft tissues are unremarkable. Mild mucosal thickening of bilateral maxillary sinuses. Mastoids are well aerated. No discrete skull fracture. Please note, MRI is more sensitive for evaluation of acute or occult process. IMPRESSION: * No acute intracranial findings. * Chronic findings as described above. Approved by Resident Salbador Qiu DO on 10/17/2023 5:14 PM Carmen Lang MD have personally reviewed the image(s) and agree with and/or edited the report Finalized by Carmen Gaviria MD on 10/17/2023 5:29 PM Normal [facility] Creatinine (U) [Mass/Vol]on 10-17-2023 URINE CREATININE,RDM <10.00 Normal [facility] Comment on above: Performed By: #### C , 12483-4, 33886-8, 27676-0, 15818-4, 78188-6, 2157-6, 11450-1, PINR, CBCA, TSHR #### [facility] ([id number]) [address] [place] [address] 78451 Glucose Glucometer (BldC) [M ass/Vol]on 10-17-2023 Glucose [Mass/Vol] 399 mg/dL High 65-99 [facility] Lactate (P stan) [Moles/Vol]o n 10-17-2023 Lactate [Moles/Vol] 2.2 mmol/L High 0.4-2.0 [facility] Comment on above: Performed By: #### C MP, 23887-9, 62256-6, 25116-5, 71895-4, 23720-5, 2157-6, 08770-5, PINR, CBCA, TSHR #### [facility] ([id number]) [address] [place] [address] 65570 LACTATE W/REFLEX 2.5 mmol/L High 0.4-2.0 [facility] Comment on above: Performed By: #### C MP, 50924-1, 51429-8, 63186-2, 03713-9, 00792-6, 2157-6, 39677-9, PINR, CBCA, TSHR #### [facility] ([id number]) [address] [place] [address] MAGNESIUMon 10-17-2023 Magnesium [Mass/Vol] 1.8 mg/dL Normal 1.8-2.6 [facility] Comment on above: Performed By: #### C ROSALBA, 20304-9, 45747-9, 37268-3, 66251-2, 72704-6, 2156-6, 50386-4, PINR, CBCA, TSHR #### [facility] ([id number]) [address] [place] [address] 68964 MICROALBUMIN - ALBUMIN:CREAT ININE URINE RATIOon 10-17-2023 ALB/CREAT RATIO 5512.4 mg/g creat High 0.0-30.0 [facility] Comment on above: Performed By: #### C ROSALBA, 03397-3, 77037-1, 51431-7, 86543-1, 94840-0, 2156-6, 29119-4, PINR, CBCA, TSHR #### [facility] ([id number]) [address] [place] [address] [place] [address] Albumin DL <= 20 mg/L (U) [Mass/Vol] 15.6 mg/dL High 0.0-1.9 [facility] Comment on above: Performed By: #### C MP, 54816-9, 64339-4, 18647-5, 79712-4, 23596-4, 2157-6, 12972-3, PINR, CBCA, TSHR #### [facility] ([id number]) [address] [place] [address] 68941 URINE CREAT 2.83 mg/dL Normal [facility] Comment on above: Performed By: #### C MP, 61004-3, 42796-2, 62846-9, 38841-4, 17826-5, 2157-6, 10342-4, PINR, CBCA, TSHR #### [facility] ([id number]) [address] [place] [address] 62689 Natriuretic peptide B [Mass/ Vol]on 10-17-2023 Natriuretic peptide B (Bld) [Mass/Vol] 1110 pg/mL High <100.0 [facility] Comment on above: Performed By: #### C MP, 61155-7, 42425-3, 06868-3, 55865-0, 31381-0, 2157-6, 16348-9, PINR, CBCA, TSHR #### [facility] ([id number]) [address] [place] [address] 04976 PROTIME AND INRon 10-17-2023 INR Coag (PPP) [Relative time] 1.3 {INR} High 0.8-1.1 [facility] Comment on above: Performed By: #### C MP, 82721-1, 56645-5, 82256-9, 08237-9, 58236-7, 2157-6, 29254-0, PINR, CBCA, TSHR #### [facility] ([id number]) [address] [place] [address] 93297 PT Coag (PPP) [Time] 14.8 s High 9.8-13.2 [facility] Comment on above: Result Comment: NEW REFERENCE RANGE Performed By: #### C MP, 37203-7, 97958-4, 62237-3, 85311-1, 31291-8, 2157-6, 74112-5, PINR, CBCA, TSHR #### [facility] ([id number]) [address] [place] [address] 10870 SARS/FLU A+B/RSV by NAAT/Mol ecularon 10-17-2023 SARS/FLU A+B/RSV by NAAT/Molecular FLU A PCR Negative (qualifier value) FLU B PCR Negative (qualifier value) RSV by PCR Negative (qualifier value) SARS CoV 2 Not detected (qualifier value) NOTE The Xpert Xpress SARS-CoV-2/Flu/RSV Plus test is a rapid, multiplexed real-time RT-PCR test intended for the simultaneous qualitative detection and differentiation of SARS-CoV-2, influenza A, influenza B and respiratory syncytial virus (RSV) viral RNA from individuals suspected of respiratory viral infection consistent with COVID-19 by their healthcare provider. This test has not been validated in asymptomatic patients. The Xpert Xpress SARS-CoV-2 test is intended for use by qualified and trained operators who are performing tests using either [employer] or [employer] systems and is limited to laboratories that meet the CLIA requirements to perform high and moderate complexity tests. The Xpert Xpress SARS-CoV-2/Flu/RSV Plus is only for use under the Food and Drug Administration's Emergency Use Authorization. Results are for the simultaneous detection and differentiation of SARS-CoV-2, influenza A, influenza B and RSV nucleic acids in clinical specimens. SARS-CoV-2, influenza A, influenza B and RSV RNA identified by this test are generally detectable in upper respiratory samples during the acute phase of infection. Positive results are indicative of the presence of the identified virus, but do not rule out bacterial infection or co-infection with other pathogens not detected by this test. Clinical correlation with patient history and other diagnostic information is necessary to determine patient infection status. The agent detected may not be the definite cause of disease. Negative results do not preclude SARS-CoV-2, influenza A, influenza B and RSV infection and should not be used as the sole basis for treatment or other patient management decisions. Negative results must be combined with clinical observations, patient history and epidemiological information. An Invalid result may occur with specimen-associated inhibition unable to be resolved with specimen repeat. Fact Sheet for Healthcare Providers: https://www.fda.gov/media /701047/download Fact Sheet for Patients: https://www.fda.gov/media /774717/download Normal [facility] Comment on above: Performed By: #### C , 30900-7, 87565-3, 69861-0, 34162-7, 54843-6, 2157-6, 34799-6, PINR, CBCA, TSHR #### [facility] ([id number]) [address] [place] [address] 95345 TROPONIN Ion 10-17-2023 Troponin I.cardiac [Mass/Vol] 0.08 ng/mL High 0.00-0.04 [facility] Comment on above: Result Comment: Concentrations greater than or equal to 0.05 ng/ml are considered elevated. Elevations of Troponin may be due to causes other than myocardial ischemia. Recommend serial Troponin testing be performed. Performed By: #### C MP, 96741-5, 52618-9, 44672-2, 09722-8, 24698-8, 2157-6, 33846-8, PINR, CBCA, TSHR #### [facility] ([id number]) [address] [place] [address] 15893 Troponin I.cardiac [Mass/Vol] 0.09 ng/mL High 0.00-0.04 [facility] Comment on above: Result Comment: Concentrations greater than or equal to 0.05 ng/ml are considered elevated. Elevations of Troponin may be due to causes other than myocardial ischemia. Recommend serial Troponin testing be performed. Performed By: #### C MP, 67172-4, 80381-9, 77390-4, 69757-8, 86760-5, 2157-6, 29303-8, PINR, CBCA, TSHR #### [facility] ([id number]) [address] [place] [address] 94324 URINALYSISon 10-17-2023 Bilirubin Ql (U) Negative Normal NEG [facility] Comment on above: Performed By: #### C MP, 40736-4, 39800-7, 71503-4, 16995-0, 48142-1, 2157-6, 08353-3, PINR, CBCA, TSHR #### [facility] ([id number]) [address] [place] [address] [place] [address] BLOOD/HGB SMALL Abnormal NEG [facility] Comment on above: Performed By: #### C MP, 96086-7, 53671-6, 90212-7, 52930-9, 23106-7, 2157-6, 46570-6, PINR, CBCA, TSHR #### [facility] ([id number]) [address] [place] [address], [place] [address] Color (U) YELLOW Normal YELLOW [facility] Comment on above: Performed By: #### C MP, 93211-9, 33161-8, 37083-0, 76665-1, 46051-5, 2157-6, 05822-0, PINR, CBCA, TSHR #### [facility] ([id number]) [address] [place] [address], [place] [address] Glucose Ql (U) Negative Normal NEG [facility] Comment on above: Performed By: #### C MP, 48746-5, 49082-2, 38802-7, 53165-0, 56590-4, 2157-6, 17180-0, PINR, CBCA, TSHR #### [facility] ([id number]) [address] [place] [address], [place] [address] Ketones Ql (U) Negative Normal NEG [facility] Comment on above: Performed By: #### C MP, 71073-3, 33665-0, 18444-5, 93140-4, 11306-3, 2157-6, 34922-2, PINR, CBCA, TSHR #### [facility] ([id number]) [address] [place] [address] 13854 Leukocyte esterase Test strip Ql (U) SMALL Abnormal NEG [facility] Comment on above: Performed By: #### C MP, 02490-5, 45182-7, 31796-4, 85816-8, 72496-9, 2157-6, 21827-4, PINR, CBCA, TSHR #### [facility] ([id number]) [address] [place] [address] 45808 Nitrite Ql (U) Positive Abnormal NEG [facility] Comment on above: Performed By: #### C MP, 19401-9, 84631-1, 64751-1, 69606-9, 98948-2, 2157-6, 65552-7, PINR, CBCA, TSHR #### [facility] ([id number]) [address] [place] [address] 43600 pH (U) 8.0 [pH] Normal 5.0-8.5 [facility] Comment on above: Performed By: #### C MP, 75639-4, 46686-1, 16039-1, 79910-0, 51080-9, 2157-6, 86937-9, PINR, CBCA, TSHR #### [facility] ([id number]) [address] [place] [address] 28031 Protein Ql (U) 30 mg/dL Abnormal NEG [facility] Comment on above: Performed By: #### C MP, 90849-8, 99608-6, 95930-8, 15394-8, 85416-0, 2157-6, 04998-7, PINR, CBCA, TSHR #### [facility] ([id number]) [address] [place] [address] 76534 R.B.CELLS 0 to 1 Normal 0-5 [facility] Comment on above: Performed By: #### C MP, 61288-1, 50087-2, 40417-2, 92113-4, 98260-6, 2157-6, 00427-9, PINR, CBCA, TSHR #### [facility] ([id number]) [address] [place] [address] 85727 Specific gravity (U) [Rel density] 1.010 Normal 1.003-1.035 [facility] Comment on above: Performed By: #### C MP, 30662-6, 62076-8, 39494-3, 32328-6, 75014-5, 2157-6, 39848-7, PINR, CBCA, TSHR #### [facility] ([id number]) [address] [place] [address] 22099 SQUAMOUS EPITHELIUM 1 to 3 Normal 0-5 [facility] Comment on above: Performed By: #### C MP, 88651-3, 64438-7, 93190-2, 90129-5, 72707-6, 2157-6, 53118-3, PINR, CBCA, TSHR #### [facility] ([id number]) [address] [place] [address] 82631 TURBIDITY HAZY Abnormal CLEAR [facility] Comment on above: Performed By: #### C MP, 98869-4, 33017-5, 36830-5, 06009-7, 05593-2, 2157-6, 61443-7, PINR, CBCA, TSHR #### [facility] ([id number]) [address] [place] [address] 26133 Urobilinogen Qn (U) 0.2 {Aden'U}/dL Normal <1.1 [facility] Comment on above: Performed By: #### C MP, 68325-9, 57495-3, 81790-4, 40216-8, 54606-9, 2157-6, 75986-5, PINR, CBCA, TSHR #### [facility] ([id number]) [address] [place] [address] 59968 W.B.CELLS 20 to 25 Normal 0-5 [facility] Comment on above: Performed By: #### C ROSALBA, 92366-9, 10236-5, 81328-2, 83918-9, 05322-0, 2157-6, 39642-5, PINR, CBCA, TSHR #### [facility] ([id number]) [address] [place] [address] 56659 URINE CULTUREon 10-17-2023 Bacteria identified Cx Nom (U) CULTURE RESULTS 50,000 to 100,000 ORGANISMS/mL ENTEROCOCCUS SPECIES Ampicillin or Amoxicillin is the drug of choice for uncomplicated cystitis caused by enterococci. Cephalosporins are inappropriate. <10,000 ORGANISMS/mL CITROBACTER BRAAKII [ S = SUSCEPTIBLE R = RESISTANT I = INTERMEDIATE S-DO = Susceptible-dose dependent NS = Non-suscceptible NO = No Interpretation ] Organism: ENTEROCOCCUS SPECIES Antibiotic Interpretation PRESTON Status AMPICILLIN S <=2 F LEVOFLOXACIN R >=8 F NITROFURANTOIN S <=16 F VANCOMYCIN S 1 F [ S = SUSCEPTIBLE R = RESISTANT I = INTERMEDIATE S-DO = Susceptible-dose dependent NS = Non-suscceptible NO = No Interpretation ] Organism: CITROBACTER BRAAKII Antibiotic Interpretation PRESTON Status CEFAZOLIN R >=64 F CEFEPIME S <=1 F CEFTRIAXONE R 16 F CIPROFLOXACIN S <=0.25 F GENTAMICIN S <=1 F LEVOFLOXACIN S <=0.12 F NITROFURANTOIN S <=16 F PIPERACIL/TAZOBACTAM S 16 F TOBRAMYCIN S <=1 F TRIMETH/SULFAMETHOXAZOLE S <=1/19 F Susceptible [facility] Comment on above: Performed By: #### C ROSALBA, 42595-3, 42832-6, 03890-0, 72596-2, 00040-3, 2157-6, 99722-7, PINR, CBCA, TSHR #### [facility] ([id number]) [address] [place] [address] 91168 URINE SODIUM,RANDOMon 2023 Sodium (U) [Moles/Vol] 95 mmol/L Normal [facility] Comment on above: Performed By: #### C MP, 93727-7, 31984-4, 97950-3, 61053-2, 39355-2, 2157-6, 52210-2, PINR, CBCA, TSHR #### [facility] ([id number]) [address] [place] [address] 54222 URN MACROSCOPIC NURon 2023 BILIRUBIN KALINA Negative Normal NEG [facility] Comment on above: Performed By: #### C MP, 22454-7, 78034-4, 58466-4, 75179-4, 11770-3, 2157-6, 60920-7, PINR, CBCA, TSHR #### [facility] ([id number]) [address] [place] [address] [place] [address] BLOOD/HGB KALINA Small Abnormal NEG [facility] Comment on above: Performed By: #### C MP, 40355-5, 78670-3, 59987-4, 35292-7, 90421-8, 2157-6, 78163-5, PINR, CBCA, TSHR #### [facility] ([id number]) [address] [place] [address] [place] [address] GLUCOSE KALINA Negative Normal NEG [facility] Comment on above: Performed By: #### C MP, 54452-8, 60628-9, 95809-0, 22588-8, 66082-1, 2157-6, 13596-4, PINR, CBCA, TSHR #### [facility] ([id number]) [address] [place] [address], [place] [address] KETONES KALINA Negative Normal NEG [facility] Comment on above: Performed By: #### C MP, 32603-0, 39365-0, 69003-0, 90585-8, 07694-0, 2157-6, 51945-0, PINR, CBCA, TSHR #### [facility] ([id number]) [address] [place] [address] 25445 LEUKOCYTE ESTERASE KALINA Small Abnormal NEG [facility] Comment on above: Performed By: #### C MP, 02357-7, 86138-4, 85761-3, 88718-8, 47324-0, 2157-6, 87089-8, PINR, CBCA, TSHR #### [facility] ([id number]) [address] [place] [address] 06374 NITRITE KALINA Positive Abnormal NEG [facility] Comment on above: Performed By: #### C MP, 53174-3, 27869-8, 16899-3, 31219-9, 94688-1, 2157-6, 62480-3, PINR, CBCA, TSHR #### [facility] ([id number]) [address] [place] [address] 70510 PH KALINA 8.0 Normal 5.0-8.5 [facility] Comment on above: Performed By: #### C MP, 58577-3, 16663-3, 34482-2, 89830-2, 57948-5, 2157-6, 52877-0, PINR, CBCA, TSHR #### [facility] ([id number]) [address] [place] [address] 68791 PROTEIN KALINA 30 mg/dL Abnormal NEG [facility] Comment on above: Performed By: #### C MP, 88840-1, 95526-9, 97862-5, 53283-2, 52394-4, 2157-6, 66338-8, PINR, CBCA, TSHR #### [facility] ([id number]) [address] [place] [address] 43846 SPECIFIC GRAVITY KALINA 1.020 Normal 1.003-1.035 [facility] Comment on above: Performed By: #### C MP, 04141-2, 87459-1, 41913-2, 17198-2, 47325-8, 2157-6, 40899-8, PINR, CBCA, TSHR #### [facility] ([id number]) [address] [place] [address] 80740 UROBILINOGEN KALINA 0.2 eu/dL Normal <1.1 [facility] Comment on above: Performed By: #### C MP, 44505-7, 50542-8, 40785-9, 24414-3, 21894-2, 2157-6, 55121-4, PINR, CBCA, TSHR #### [facility] ([id number]) [address] [place] [address] 19707 aPTT Coag (PPP) [Time]on aPTT Coag (Bld) [Time] 23 s Low 26-37 [facility] Comment on above: Result Comment: NEW REFERENCE RANGE Performed By: #### C MP, 97131-0, 31974-3, 22469-5, 73483-6, 70697-5, 2157-6, 51432-7, PINR, CBCA, TSHR #### [facility] ([id number]) [address] [place] [address] 51457 Basic Metabolic Panelon Anion gap [Moles/Vol] 16 mmol/L High 5 - 15 mmol/L [facility] [employer] [facility] Calcium [Mass/Vol] 9.0 mg/dL 8.5 - 10. 5 mg/dL [facility] Chloride [Moles/Vol] 91 mmol/L Low 98 - 109 mmol/L [facility] [employer] [facility] CO2 [Moles/Vol] 41 mmol/L High 22 - 32 mmol/L [facility] Creatinine [Mass/Vol] 2.31 mg/dL High 0.40 - 1.00 mg/dL [facility] eGFR (CKD-EPI)non-race dependent 23 Low - PINF [facility] Glucose [Mass/Vol] 135 mg/dL High 65 - 99 mg/dL [facility] Interpretation and review of laboratory results Abnormal [facility] Potassium [Moles/Vol] 3.3 mmol/L Low 3.5 - 5.0 mmol/L [facility] Sodium [Moles/Vol] 148 mmol/L High 134 - 146 mmol/L [facility] Urea nitrogen [Mass/Vol] 73 mg/dL High 5 - 27 mg/dL [facility] Blood gas, venouson 10-05-19 24 Arterial patency Wrist artery --pre arterial puncture [facility] Base excess Calc (Bld) [Moles/Vol] 17.0 mmol/L High [facility] CO2 (BldV) [Partial pressure] 54.2 mm[Hg] High [facility] HCO3 (Bld) [Moles/Vol] 43.4 mmol/L High [facility] Interpretation and review of laboratory results Abnormal [facility] Oxygen (BldV) [Partial pressure] 25 mm[Hg] Low [facility] Oxygen therapy source and amount [CARE] RoomAir [facility] Oxygen/Inspired gas setting [Volume Fraction] Ventilator 21 % [facility] pH (BldV) 7.511 [pH] High 7.320 - 7.420 [facility] SaO2% Calculated from oxygen partial pressure (BldV) [Mass fraction] 51.0 % Low 80.0 - PINF % [facility] Specimen site Narrative N/A [facility] Specimen type Nom (Spec) VENOUS [facility] CBC auto differentialon Basophils (Bld) [#/Vol] 0.0 10*3/uL [facility] Basophils/100 WBC (Bld) 0.7 % [facility] Eosinophils (Bld) [#/Vol] 0.1 10*3/uL [facility] Eosinophils/100 WBC (Bld) 1.5 % [facility] Erythrocyte distribution width (RBC) [Ratio] 19.9 % High 11.5 - 15.0 % [facility] Hematocrit (Bld) [Volume fraction] 31.2 % Low 35 - 47 % [facility] Hemoglobin (Bld) [Mass/Vol] 9.9 g/dL Low 11.7 - 15.5 g/dL [facility] Interpretation and review of laboratory results Abnormal [facility] Lymphocytes (Bld) [#/Vol] 0.9 10*3/uL Low [facility] Lymphocytes/100 WBC (Bld) 15.9 % [facility] MCH (RBC) [Entitic mass] 30.7 pg 27 - 34 pg [facility] MCHC (RBC) [Mass/Vol] 31.7 g/dL Low 32 - 36 g/dL [facility] MCV (RBC) [Entitic vol] 97 fL 80 - 100 fL [facility] Monocytes (Bld) [#/Vol] 0.8 10*3/uL [facility] Monocytes/100 WBC (Bld) 14.0 % [facility] Neutrophils (Bld) [#/Vol] 3.7 10*3/uL [facility] Neutrophils/100 WBC (Bld) 67.9 % [facility] Platelet mean volume (Bld) [Entitic vol] 9.3 fL 7 - 12 fL [facility] Platelets (Bld) [#/Vol] 150 10*3/uL [facility] RBC (Bld) [#/Vol] 3.22 10*6/uL Low [facility] WBC corrected for nucl RBC Auto (Bld) [#/Vol] 5.4 [facility] Glucose Glucometer (BldC) [M ass/Vol]on 10-05-2023 Glucose [Mass/Vol] 150 mg/dL High 65 - 99 mg/dL [facility] Interpretation and review of laboratory results Abnormal [facility] Glucose [Mass/Vol] 146 mg/dL High 65 - 99 mg/dL [facility] Interpretation and review of laboratory results Abnormal [facility] Magnesiumon 10-05-2023 Magnesium [Mass/Vol] 2.0 mg/dL 1.8 - 2.6 mg/dL [facility] No Panel Informationon 10-05 [facility] Protime & INRon 10-05-2023 INR Coag (PPP) [Relative time] 1.6 {INR} High [facility] Interpretation and review of laboratory results Abnormal [facility] PT Coag (PPP) [Time] 18.2 s High [facility] XR Chest Single viewon 10-05 SECTRAPACS [facility] Radiology Study observation (narrative) [facility] Basic Metabolic Panelon Anion gap [Moles/Vol] 16 mmol/L High 5 - 15 mmol/L [facility] Calcium [Mass/Vol] 8.6 mg/dL 8.5 - 10. 5 mg/dL [facility] Chloride [Moles/Vol] 91 mmol/L Low 98 - 109 mmol/L [facility] CO2 [Moles/Vol] 38 mmol/L High 22 - 32 mmol/L [facility] Creatinine [Mass/Vol] 2.18 mg/dL High 0.40 - 1.00 mg/dL [facility] eGFR (CKD-EPI)non-race dependent 24 Low - PINF [facility] Glucose [Mass/Vol] 103 mg/dL High 65 - 99 mg/dL [facility] Interpretation and review of laboratory results Abnormal [facility] Potassium [Moles/Vol] 3.5 mmol/L 3.5 - 5.0 mmol/L [facility] Sodium [Moles/Vol] 145 mmol/L 134 - 146 mmol/L [facility] Urea nitrogen [Mass/Vol] 73 mg/dL High 5 - 27 mg/dL [facility] CBC auto differentialon Basophils (Bld) [#/Vol] 0.1 10*3/uL [facility] Basophils/100 WBC (Bld) 1.0 % [facility] Eosinophils (Bld) [#/Vol] 0.1 10*3/uL [facility] Eosinophils/100 WBC (Bld) 2.1 % [facility] Erythrocyte distribution width (RBC) [Ratio] 20.4 % High 11.5 - 15.0 % [facility] Hematocrit (Bld) [Volume fraction] 28.9 % Low 35 - 47 % [facility] Hemoglobin (Bld) [Mass/Vol] 9.5 g/dL Low 11.7 - 15.5 g/dL [facility] Interpretation and review of laboratory results Abnormal [facility] Lymphocytes (Bld) [#/Vol] 0.7 10*3/uL Low [facility] Lymphocytes/100 WBC (Bld) 12.7 % [facility] MCH (RBC) [Entitic mass] 31.3 pg 27 - 34 pg [facility] MCHC (RBC) [Mass/Vol] 33.0 g/dL 32 - 36 g/dL [facility] MCV (RBC) [Entitic vol] 95 fL 80 - 100 fL [facility] Monocytes (Bld) [#/Vol] 0.6 10*3/uL [facility] Monocytes/100 WBC (Bld) 10.7 % [facility] Neutrophils (Bld) [#/Vol] 4.3 10*3/uL [facility] Neutrophils/100 WBC (Bld) 73.5 % [facility] Platelet mean volume (Bld) [Entitic vol] 9.4 fL 7 - 12 fL [facility] Platelets (Bld) [#/Vol] 155 10*3/uL [facility] RBC (Bld) [#/Vol] 3.05 10*6/uL Low [facility] WBC corrected for nucl RBC Auto (Bld) [#/Vol] 5.9 [facility] Glucose Glucometer (BldC) [M ass/Vol]on 10-04-2023 Glucose [Mass/Vol] 155 mg/dL High 65 - 99 mg/dL [facility] Interpretation and review of laboratory results Abnormal [facility] Glucose [Mass/Vol] 119 mg/dL High 65 - 99 mg/dL [facility] Interpretation and review of laboratory results Abnormal [facility] Glucose [Mass/Vol] 127 mg/dL High 65 - 99 mg/dL [facility] Interpretation and review of laboratory results Abnormal [facility] Glucose [Mass/Vol] 108 mg/dL High 65 - 99 mg/dL [facility] Interpretation and review of laboratory results Abnormal [facility] Magnesiumon 10-04-2023 Magnesium [Mass/Vol] 1.9 mg/dL 1.8 - 2.6 mg/dL [facility] No Panel Informationon 10-04 [facility] Protime & INRon 10-04-2023 INR Coag (PPP) [Relative time] 1.6 {INR} High [facility] Interpretation and review of laboratory results Abnormal [facility] PT Coag (PPP) [Time] 18.7 s High [facility] Basic Metabolic Panelon Anion gap [Moles/Vol] 12 mmol/L 5 - 15 mmol/L [facility] Calcium [Mass/Vol] 8.2 mg/dL Low 8.5 - 10. 5 mg/dL [facility] Chloride [Moles/Vol] 91 mmol/L Low 98 - 109 mmol/L [facility] CO2 [Moles/Vol] 37 mmol/L High 22 - 32 mmol/L [facility] Creatinine [Mass/Vol] 2.40 mg/dL High 0.40 - 1.00 mg/dL [facility] eGFR (CKD-EPI)non-race dependent 22 Low - PINF [facility] Glucose [Mass/Vol] 120 mg/dL High 65 - 99 mg/dL [facility] Interpretation and review of laboratory results Abnormal [facility] Potassium [Moles/Vol] 3.2 mmol/L Low 3.5 - 5.0 mmol/L [facility] Sodium [Moles/Vol] 140 mmol/L 134 - 146 mmol/L [facility] Urea nitrogen [Mass/Vol] 78 mg/dL High 5 - 27 mg/dL [facility] Glucose Glucometer (BldC) [M ass/Vol]on 10-03-2023 Glucose [Mass/Vol] 113 mg/dL High 65 - 99 mg/dL [facility] Interpretation and review of laboratory results Abnormal [facility] Glucose [Mass/Vol] 119 mg/dL High 65 - 99 mg/dL [facility] Interpretation and review of laboratory results Abnormal [facility] Glucose [Mass/Vol] 138 mg/dL High 65 - 99 mg/dL [facility] Interpretation and review of laboratory results Abnormal [facility] Glucose [Mass/Vol] 129 mg/dL High 65 - 99 mg/dL [facility] Interpretation and review of laboratory results Abnormal [facility] Hemoglobinon 10-03-2023 Hemoglobin (Bld) [Mass/Vol] 8.0 g/dL Low 11.7 - 15.5 g/dL [facility] No Panel Informationon 10-03 Interpretation and review of laboratory results Abnormal [facility] Platelet counton 10-03-2023 Platelet mean volume (Bld) [Entitic vol] 9.8 fL 7 - 12 fL [facility] Platelets (Bld) [#/Vol] 131 10*3/uL Low [facility] Potassiumon 10-03-2023 Potassium [Moles/Vol] 3.4 mmol/L Low 3.5 - 5.0 mmol/L [facility] Potassium [Moles/Vol]on Interpretation and review of laboratory results Abnormal [facility] Protime & INRon 10-03-2023 INR Coag (PPP) [Relative time] 1.8 {INR} High [facility] Interpretation and review of laboratory results Abnormal [facility] PT Coag (PPP) [Time] 20.2 s High [facility] Anti XA unfractionated hepar inon 10-02-2023 Heparin unfractionated Chromogenic method Qn (PPP) 0.36 [facility] Heparin unfractionated Chromogenic method Qn (PPP) 0.31 [facility] Bacteria identified Aer cx N om (Bld)on 10-02-2023 Service comment (Unsp spec) [Interp] ONLY AEROBIC BOTTLE RECEIVED, SUBOPTIMAL VOLUME OF BLOOD COLLECTED, RESULTS MAY BE AFFECTED [facility] Service comment (Unsp spec) [Interp] NO GROWTH 5 DAYS [facility] CBC auto differentialon Basophils (Bld) [#/Vol] 0.1 10*3/uL [facility] Basophils/100 WBC (Bld) 0.8 % [facility] Eosinophils (Bld) [#/Vol] 0.1 10*3/uL [facility] Eosinophils/100 WBC (Bld) 1.9 % [facility] Erythrocyte distribution width (RBC) [Ratio] 20.4 % High 11.5 - 15.0 % [facility] Hematocrit (Bld) [Volume fraction] 24.9 % Low 35 - 47 % [facility] Hemoglobin (Bld) [Mass/Vol] 8.1 g/dL Low 11.7 - 15.5 g/dL [facility] Interpretation and review of laboratory results Abnormal [facility] Lymphocytes (Bld) [#/Vol] 0.8 10*3/uL Low [facility] Lymphocytes/100 WBC (Bld) 11.0 % [facility] MCH (RBC) [Entitic mass] 31.2 pg 27 - 34 pg [facility] MCHC (RBC) [Mass/Vol] 32.7 g/dL 32 - 36 g/dL [facility] MCV (RBC) [Entitic vol] 96 fL 80 - 100 fL [facility] Monocytes (Bld) [#/Vol] 0.6 10*3/uL [facility] Monocytes/100 WBC (Bld) 8.5 % [facility] Neutrophils (Bld) [#/Vol] 5.4 10*3/uL [facility] Neutrophils/100 WBC (Bld) 77.8 % [facility] Platelet mean volume (Bld) [Entitic vol] 9.8 fL 7 - 12 fL [facility] Platelets (Bld) [#/Vol] 132 10*3/uL Low [facility] RBC (Bld) [#/Vol] 2.60 10*6/uL Low [facility] WBC corrected for nucl RBC Auto (Bld) [#/Vol] 6.9 [facility] Comprehensive metabolic pane elver 10-02-2023 Albumin [Mass/Vol] 3.5 g/dL 3.2 - 5.3 g/dL [facility] ALP [Catalytic activity/Vol] 80 U/L 39 - 130 U/L [facility] ALT No additional P-5'-P [Catalytic activity/Vol] 9 U/L 0 - 31 U/L [facility] Anion gap [Moles/Vol] 14 mmol/L 5 - 15 mmol/L [facility] AST [Catalytic activity/Vol] 16 U/L 0 - 41 U/L [facility] Bilirubin [Mass/Vol] 1.2 mg/dL 0.3 - 1.2 mg/dL [facility] Calcium [Mass/Vol] 8.2 mg/dL Low 8.5 - 10. 5 mg/dL [facility] Chloride [Moles/Vol] 93 mmol/L Low 98 - 109 mmol/L [facility] CO2 [Moles/Vol] 34 mmol/L High 22 - 32 mmol/L [facility] Creatinine [Mass/Vol] 2.42 mg/dL High 0.40 - 1.00 mg/dL [facility] eGFR (CKD-EPI)non-race dependent 22 Low - PINF [facility] Glucose [Mass/Vol] 169 mg/dL High 65 - 99 mg/dL [facility] Interpretation and review of laboratory results Abnormal [facility] Potassium [Moles/Vol] 3.7 mmol/L 3.5 - 5.0 mmol/L [facility] Protein [Mass/Vol] 6.4 g/dL 6.0 - 8.0 g/dL [facility] Sodium [Moles/Vol] 141 mmol/L 134 - 146 mmol/L [facility] Urea nitrogen [Mass/Vol] 77 mg/dL High 5 - 27 mg/dL [facility] Digoxin [Mass/Vol]on Interpretation and review of laboratory results Abnormal [facility] Digoxin levelon 10-02-2023 Digoxin [Mass/Vol] 0.7 ng/mL Low 0.8 - 2.0 ng/mL [facility] Glucose Glucometer (BldC) [M ass/Vol]on 10-02-2023 Glucose [Mass/Vol] 143 mg/dL High 65 - 99 mg/dL [facility] Interpretation and review of laboratory results Abnormal [facility] Glucose [Mass/Vol] 171 mg/dL High 65 - 99 mg/dL [facility] Interpretation and review of laboratory results Abnormal [facility] Glucose [Mass/Vol] 207 mg/dL High 65 - 99 mg/dL [facility] Interpretation and review of laboratory results Abnormal [facility] Glucose [Mass/Vol] 177 mg/dL High 65 - 99 mg/dL [facility] Interpretation and review of laboratory results Abnormal [facility] Heparin unfractionated Chrom ogenic method Qn (PPP)on 10-02-2023 [facility] Magnesiumon 10-02-2023 Magnesium [Mass/Vol] 2.2 mg/dL 1.8 - 2.6 mg/dL [facility] No Panel Informationon 10-02 [facility] Phosphoruson 10-02-2023 Phosphate [Mass/Vol] 2.8 mg/dL 2.4 - 4.9 mg/dL [facility] Protime & INRon 10-02-2023 INR Coag (PPP) [Relative time] 1.8 {INR} High [facility] Interpretation and review of laboratory results Abnormal [facility] PT Coag (PPP) [Time] 21.0 s High [facility] APTTon 10-01-2023 aPTT Coag (PPP) [Time] 28 s [facility] CBC auto differentialon Basophils (Bld) [#/Vol] 0.0 10*3/uL [facility] Basophils/100 WBC (Bld) 0.6 % [facility] Eosinophils (Bld) [#/Vol] 0.2 10*3/uL [facility] Eosinophils/100 WBC (Bld) 2.0 % [facility] Erythrocyte distribution width (RBC) [Ratio] 21.1 % High 11.5 - 15.0 % [facility] Hematocrit (Bld) [Volume fraction] 24.0 % Low 35 - 47 % [facility] Hemoglobin (Bld) [Mass/Vol] 8.0 g/dL Low 11.7 - 15.5 g/dL [facility] Interpretation and review of laboratory results Abnormal [facility] Lymphocytes (Bld) [#/Vol] 1.0 10*3/uL [facility] Lymphocytes/100 WBC (Bld) 11.8 % [facility] MCH (RBC) [Entitic mass] 31.4 pg 27 - 34 pg [facility] MCHC (RBC) [Mass/Vol] 33.1 g/dL 32 - 36 g/dL [facility] MCV (RBC) [Entitic vol] 95 fL 80 - 100 fL [facility] Monocytes (Bld) [#/Vol] 0.8 10*3/uL [facility] Monocytes/100 WBC (Bld) 9.2 % [facility] Neutrophils (Bld) [#/Vol] 6.4 10*3/uL [facility] Neutrophils/100 WBC (Bld) 76.4 % [facility] Platelet mean volume (Bld) [Entitic vol] 9.6 fL 7 - 12 fL [facility] Platelets (Bld) [#/Vol] 135 10*3/uL Low [facility] RBC (Bld) [#/Vol] 2.53 10*6/uL Low [facility] WBC corrected for nucl RBC Auto (Bld) [#/Vol] 8.4 [facility] Comprehensive metabolic pane elver 10-01-2023 Albumin [Mass/Vol] 3.5 g/dL 3.2 - 5.3 g/dL [facility] ALP [Catalytic activity/Vol] 83 U/L 39 - 130 U/L [facility] ALT No additional P-5'-P [Catalytic activity/Vol] 11 U/L 0 - 31 U/L [facility] Anion gap [Moles/Vol] 10 mmol/L 5 - 15 mmol/L [facility] AST [Catalytic activity/Vol] 18 U/L 0 - 41 U/L [facility] Bilirubin [Mass/Vol] 1.0 mg/dL 0.3 - 1.2 mg/dL [facility] Calcium [Mass/Vol] 8.4 mg/dL Low 8.5 - 10. 5 mg/dL [facility] Chloride [Moles/Vol] 97 mmol/L Low 98 - 109 mmol/L [facility] CO2 [Moles/Vol] 36 mmol/L High 22 - 32 mmol/L [facility] Creatinine [Mass/Vol] 2.52 mg/dL High 0.40 - 1.00 mg/dL [facility] eGFR (CKD-EPI)non-race dependent 20 Low - PINF [facility] Glucose [Mass/Vol] 142 mg/dL High 65 - 99 mg/dL [facility] Interpretation and review of laboratory results Abnormal [facility] Potassium [Moles/Vol] 3.9 mmol/L 3.5 - 5.0 mmol/L [facility] Protein [Mass/Vol] 6.5 g/dL 6.0 - 8.0 g/dL [facility] Sodium [Moles/Vol] 143 mmol/L 134 - 146 mmol/L [facility] Urea nitrogen [Mass/Vol] 77 mg/dL High 5 - 27 mg/dL [facility] Glucose Glucometer (BldC) [M ass/Vol]on 10-01-2023 Glucose [Mass/Vol] 191 mg/dL High 65 - 99 mg/dL [facility] Interpretation and review of laboratory results Abnormal [facility] Glucose [Mass/Vol] 183 mg/dL High 65 - 99 mg/dL [facility] Interpretation and review of laboratory results Abnormal [facility] Glucose [Mass/Vol] 176 mg/dL High 65 - 99 mg/dL [facility] Interpretation and review of laboratory results Abnormal [facility] Glucose [Mass/Vol] 146 mg/dL High 65 - 99 mg/dL [facility] Interpretation and review of laboratory results Abnormal [facility] Magnesiumon 10-01-2023 Magnesium [Mass/Vol] 2.5 mg/dL 1.8 - 2.6 mg/dL [facility] No Panel Informationon 10-01 [facility] Phosphoruson 10-01-2023 Phosphate [Mass/Vol] 2.9 mg/dL 2.4 - 4.9 mg/dL [facility] Platelet counton 10-01-2023 Interpretation and review of laboratory results Abnormal [facility] Platelet mean volume (Bld) [Entitic vol] 9.8 fL 7 - 12 fL [facility] Platelets (Bld) [#/Vol] 139 10*3/uL Low [facility] Protime & INRon 10-01-2023 INR Coag (PPP) [Relative time] 1.7 {INR} High [facility] Interpretation and review of laboratory results Abnormal [facility] PT Coag (PPP) [Time] 19.4 s High [facility] INR Coag (PPP) [Relative time] 1.6 {INR} High [facility] Interpretation and review of laboratory results Abnormal [facility] PT Coag (PPP) [Time] 18.3 s High [facility] CBC auto differentialon Basophils (Bld) [#/Vol] 0.0 10*3/uL [facility] Basophils/100 WBC (Bld) 0.3 % [facility] Eosinophils (Bld) [#/Vol] 0.2 10*3/uL [facility] Eosinophils/100 WBC (Bld) 1.7 % [facility] Erythrocyte distribution width (RBC) [Ratio] 20.2 % High 11.5 - 15.0 % [facility] Hematocrit (Bld) [Volume fraction] 22.3 % Low 35 - 47 % [facility] Hemoglobin (Bld) [Mass/Vol] 7.4 g/dL Low 11.7 - 15.5 g/dL [facility] Interpretation and review of laboratory results Abnormal [facility] Lymphocytes (Bld) [#/Vol] 0.8 10*3/uL Low [facility] Lymphocytes/100 WBC (Bld) 7.9 % [facility] MCH (RBC) [Entitic mass] 31.6 pg 27 - 34 pg [facility] MCHC (RBC) [Mass/Vol] 33.2 g/dL 32 - 36 g/dL [facility] MCV (RBC) [Entitic vol] 95 fL 80 - 100 fL [facility] Monocytes (Bld) [#/Vol] 0.8 10*3/uL [facility] Monocytes/100 WBC (Bld) 8.7 % [facility] Neutrophils (Bld) [#/Vol] 7.8 10*3/uL High [facility] Neutrophils/100 WBC (Bld) 81.4 % [facility] Platelet mean volume (Bld) [Entitic vol] 9.7 fL 7 - 12 fL [facility] Platelets (Bld) [#/Vol] 124 10*3/uL Low [facility] RBC (Bld) [#/Vol] 2.35 10*6/uL Low [facility] WBC corrected for nucl RBC Auto (Bld) [#/Vol] 9.5 [facility] Comprehensive metabolic pane elver 09-30-2023 Albumin [Mass/Vol] 3.6 g/dL 3.2 - 5.3 g/dL [facility] ALP [Catalytic activity/Vol] 87 U/L 39 - 130 U/L [facility] ALT No additional P-5'-P [Catalytic activity/Vol] 14 U/L 0 - 31 U/L [facility] Anion gap [Moles/Vol] 12 mmol/L 5 - 15 mmol/L [facility] AST [Catalytic activity/Vol] 15 U/L 0 - 41 U/L [facility] Bilirubin [Mass/Vol] 0.7 mg/dL 0.3 - 1.2 mg/dL [facility] Calcium [Mass/Vol] 8.2 mg/dL Low 8.5 - 10. 5 mg/dL [facility] Chloride [Moles/Vol] 101 mmol/L 98 - 109 mmol/L [facility] CO2 [Moles/Vol] 34 mmol/L High 22 - 32 mmol/L [facility] Creatinine [Mass/Vol] 2.72 mg/dL High 0.40 - 1.00 mg/dL [facility] eGFR (CKD-EPI)non-race dependent 19 Low - PINF [facility] Glucose [Mass/Vol] 153 mg/dL High 65 - 99 mg/dL [facility] Interpretation and review of laboratory results Abnormal [facility] Potassium [Moles/Vol] 3.3 mmol/L Low 3.5 - 5.0 mmol/L [facility] Protein [Mass/Vol] 6.2 g/dL 6.0 - 8.0 g/dL [facility] Sodium [Moles/Vol] 147 mmol/L High 134 - 146 mmol/L [facility] Urea nitrogen [Mass/Vol] 83 mg/dL High 5 - 27 mg/dL [facility] Glucose Glucometer (BldC) [M ass/Vol]on 09-30-2023 Glucose [Mass/Vol] 205 mg/dL High 65 - 99 mg/dL [facility] Interpretation and review of laboratory results Abnormal [facility] Glucose [Mass/Vol] 146 mg/dL High 65 - 99 mg/dL [facility] Interpretation and review of laboratory results Abnormal [facility] Glucose [Mass/Vol] 220 mg/dL High 65 - 99 mg/dL [facility] Interpretation and review of laboratory results Abnormal [facility] Glucose [Mass/Vol] 173 mg/dL High 65 - 99 mg/dL [facility] Interpretation and review of laboratory results Abnormal [facility] Hemoglobin A1con 09-30-2023 Average glucose Estimated from glycated hemoglobin (Bld) [Mass/Vol] 134 mg/dL [facility] HbA1c (Bld) [Mass fraction] 6.3 % High 4.4 - 5.6 % [facility] Interpretation and review of laboratory results Abnormal [facility] Ionized magnesiumon 09-30-19 Magnesium Ionized ISE (Bld) [Moles/Vol] 0.86 mmol/L High 0.45 - 0.74 mmol/L [facility] Magnesiumon 09-30-2023 Magnesium [Mass/Vol] 1.9 mg/dL 1.8 - 2.6 mg/dL [facility] Magnesium Ionized ISE (Bld) [Moles/Vol]on 09-30-2023 Interpretation and review of laboratory results Abnormal [facility] No Panel Informationon 09-30 [facility] Phosphoruson 09-30-2023 Phosphate [Mass/Vol] 3.1 mg/dL 2.4 - 4.9 mg/dL [facility] Potassiumon 09-30-2023 Potassium [Moles/Vol] 4.0 mmol/L 3.5 - 5.0 mmol/L [facility] Potassium [Moles/Vol]on [facility] Protime & INRon 09-30-2023 INR Coag (PPP) [Relative time] 1.9 {INR} High [facility] Interpretation and review of laboratory results Abnormal [facility] PT Coag (PPP) [Time] 21.8 s High [facility] XR Chest Single viewon 09-30 SECTRAPACS [facility] Radiology Study observation (narrative) [facility] XR Chest Single viewOrdered By: Vida Jiménez on 09-30-2023 [facility] Work Phone: Bacteria identified Aer cx N om (Bld)on 09-29-2023 Interpretation and review of laboratory results Abnormal [facility] Service comment (Unsp spec) [Interp] Negative Abnormal [facility] Service comment (Unsp spec) [Interp] POSSIBLE COLLECTION CONTAMINATION. SINGLE POSITIVE CULTURE IS OF UNCERTAIN CLINICAL SIGNIFICANCE. SUGGEST CONTINUED MONITORING OF REMAINING BLOOD CULTURES. CONTACT MICROBIOLOGY IF FURTHER INFORMATION IS REQUIRED. [facility] Service comment (Unsp spec) [Interp] Staphylococcus species detected by PCR (not S. aureus, S.epidermidis, or S.lugdunensis). Abnormal [facility] CBC auto differentialon 09-01 Basophils (Bld) [#/Vol] 0.0 10*3/uL [facility] Basophils/100 WBC (Bld) 0.3 % [facility] Eosinophils (Bld) [#/Vol] 0.1 10*3/uL [facility] Eosinophils/100 WBC (Bld) 1.3 % [facility] Erythrocyte distribution width (RBC) [Ratio] 20.4 % High 11.5 - 15.0 % [facility] Hematocrit (Bld) [Volume fraction] 24.2 % Low 35 - 47 % [facility] Hemoglobin (Bld) [Mass/Vol] 7.8 g/dL Low 11.7 - 15.5 g/dL [facility] Interpretation and review of laboratory results Abnormal [facility] Lymphocytes (Bld) [#/Vol] 0.8 10*3/uL Low [facility] Lymphocytes/100 WBC (Bld) 8.6 % [facility] MCH (RBC) [Entitic mass] 30.9 pg 27 - 34 pg [facility] MCHC (RBC) [Mass/Vol] 32.1 g/dL 32 - 36 g/dL [facility] MCV (RBC) [Entitic vol] 96 fL 80 - 100 fL [facility] Monocytes (Bld) [#/Vol] 0.7 10*3/uL [facility] Monocytes/100 WBC (Bld) 7.9 % [facility] Neutrophils (Bld) [#/Vol] 7.7 10*3/uL High [facility] Neutrophils/100 WBC (Bld) 81.9 % [facility] Platelet mean volume (Bld) [Entitic vol] 10.0 fL 7 - 12 fL [facility] Platelets (Bld) [#/Vol] 100 10*3/uL Low [facility] RBC (Bld) [#/Vol] 2.51 10*6/uL Low [facility] WBC corrected for nucl RBC Auto (Bld) [#/Vol] 9.4 [facility] Calcium.ionized (Bld) [Mass/ Vol]on 09-29-2023 [facility] Comprehensive metabolic pane elver 09-29-2023 Albumin [Mass/Vol] 3.7 g/dL 3.2 - 5.3 g/dL [facility] ALP [Catalytic activity/Vol] 76 U/L 39 - 130 U/L [facility] ALT No additional P-5'-P [Catalytic activity/Vol] 11 U/L 0 - 31 U/L [facility] Anion gap [Moles/Vol] 13 mmol/L 5 - 15 mmol/L [facility] AST [Catalytic activity/Vol] 16 U/L 0 - 41 U/L [facility] Bilirubin [Mass/Vol] 0.9 mg/dL 0.3 - 1.2 mg/dL [facility] Calcium [Mass/Vol] 8.4 mg/dL Low 8.5 - 10. 5 mg/dL [facility] Chloride [Moles/Vol] 105 mmol/L 98 - 109 mmol/L [facility] CO2 [Moles/Vol] 32 mmol/L 22 - 32 mmol/L [facility] Creatinine [Mass/Vol] 3.03 mg/dL High 0.40 - 1.00 mg/dL [facility] eGFR (CKD-EPI)non-race dependent 16 Low - PINF [facility] Glucose [Mass/Vol] 167 mg/dL High 65 - 99 mg/dL [facility] Interpretation and review of laboratory results Abnormal [facility] Potassium [Moles/Vol] 3.2 mmol/L Low 3.5 - 5.0 mmol/L [facility] Protein [Mass/Vol] 6.4 g/dL 6.0 - 8.0 g/dL [facility] Sodium [Moles/Vol] 150 mmol/L High 134 - 146 mmol/L [facility] Urea nitrogen [Mass/Vol] 87 mg/dL High 5 - 27 mg/dL [facility] Glucose Glucometer (BldC) [M ass/Vol]on 09-29-2023 Glucose [Mass/Vol] 300 mg/dL High 65 - 99 mg/dL [facility] Interpretation and review of laboratory results Abnormal [facility] Glucose [Mass/Vol] 254 mg/dL High 65 - 99 mg/dL [facility] Interpretation and review of laboratory results Abnormal [facility] Glucose [Mass/Vol] 187 mg/dL High 65 - 99 mg/dL [facility] Interpretation and review of laboratory results Abnormal [facility] Glucose [Mass/Vol] 160 mg/dL High 65 - 99 mg/dL [facility] Interpretation and review of laboratory results Abnormal [facility] Ionized calciumon 09-29-2023 Calcium.ionized (Bld) [Mass/Vol] 4.5 mg/dL 4.5 - 5.3 mg/dL [facility] Ionized magnesiumon 09-29-20 Magnesium Ionized ISE (Bld) [Moles/Vol] 0.59 mmol/L 0.45 - 0.74 mmol/L [facility] Magnesiumon 09-29-2023 Magnesium [Mass/Vol] 1.8 mg/dL 1.8 - 2.6 mg/dL [facility] Magnesium Ionized ISE (Bld) [Moles/Vol]on 09-29-2023 [facility] No Panel Informationon 09-29 [facility] Phosphoruson 09-29-2023 Phosphate [Mass/Vol] 3.7 mg/dL 2.4 - 4.9 mg/dL [facility] Protime & INRon 09-29-2023 INR Coag (PPP) [Relative time] 2.1 {INR} High [facility] Interpretation and review of laboratory results Abnormal [facility] PT Coag (PPP) [Time] 23.5 s High [facility] XR Chest Single viewon 09-29 [facility]RAPACS [facility] Radiology Study observation (narrative) [facility] Ammoniaon 09-28-2023 Ammonia (P) [Moles/Vol] 36 umol/L 18 - 72 umol/L [facility] Ammonia (P) [Moles/Vol]on [facility] Bacteria identified Cx Nom ( U)on 09-28-2023 Service comment (Unsp spec) [Interp] URINE RECEIVED WITHOUT PRESERVATIVE [facility] Service comment (Unsp spec) [Interp] NO GROWTH AT <1000 CFU/mL [facility] CBC auto differentialon 09-01 Basophils (Bld) [#/Vol] 0.0 10*3/uL [facility] Basophils/100 WBC (Bld) 0.1 % [facility] Eosinophils (Bld) [#/Vol] 0.1 10*3/uL [facility] Eosinophils/100 WBC (Bld) 0.9 % [facility] Erythrocyte distribution width (RBC) [Ratio] 19.5 % High 11.5 - 15.0 % [facility] Hematocrit (Bld) [Volume fraction] 23.2 % Low 35 - 47 % [facility] Hemoglobin (Bld) [Mass/Vol] 7.5 g/dL Low 11.7 - 15.5 g/dL [facility] Interpretation and review of laboratory results Abnormal [facility] Lymphocytes (Bld) [#/Vol] 0.6 10*3/uL Low [facility] Lymphocytes/100 WBC (Bld) 5.2 % [facility] MCH (RBC) [Entitic mass] 31.1 pg 27 - 34 pg [facility] MCHC (RBC) [Mass/Vol] 32.5 g/dL 32 - 36 g/dL [facility] MCV (RBC) [Entitic vol] 96 fL 80 - 100 fL [facility] Monocytes (Bld) [#/Vol] 0.7 10*3/uL [facility] Monocytes/100 WBC (Bld) 6.5 % [facility] Neutrophils (Bld) [#/Vol] 9.5 10*3/uL High [facility] Neutrophils/100 WBC (Bld) 87.3 % [facility] Platelet mean volume (Bld) [Entitic vol] 10.0 fL 7 - 12 fL [facility] Platelets (Bld) [#/Vol] 81 10*3/uL Low [facility] RBC (Bld) [#/Vol] 2.43 10*6/uL Low [facility] WBC corrected for nucl RBC Auto (Bld) [#/Vol] 10.9 [facility] Calcium.ionized (Bld) [Mass/ Vol]on 09-28-2023 [facility] Comprehensive metabolic pane elver 09-28-2023 Albumin [Mass/Vol] 3.4 g/dL 3.2 - 5.3 g/dL [facility] ALP [Catalytic activity/Vol] 78 U/L 39 - 130 U/L [facility] ALT No additional P-5'-P [Catalytic activity/Vol] 11 U/L 0 - 31 U/L [facility] Anion gap [Moles/Vol] 14 mmol/L 5 - 15 mmol/L [facility] AST [Catalytic activity/Vol] 18 U/L 0 - 41 U/L [facility] Bilirubin [Mass/Vol] 1.0 mg/dL 0.3 - 1.2 mg/dL [facility] Calcium [Mass/Vol] 8.7 mg/dL 8.5 - 10. 5 mg/dL [facility] Chloride [Moles/Vol] 104 mmol/L 98 - 109 mmol/L [facility] CO2 [Moles/Vol] 30 mmol/L 22 - 32 mmol/L [facility] Creatinine [Mass/Vol] 3.24 mg/dL High 0.40 - 1.00 mg/dL [facility] eGFR (CKD-EPI)non-race dependent 15 Low - PINF [facility] Glucose [Mass/Vol] 129 mg/dL High 65 - 99 mg/dL [facility] Potassium [Moles/Vol] 3.2 mmol/L Low 3.5 - 5.0 mmol/L [facility] Protein [Mass/Vol] 6.1 g/dL 6.0 - 8.0 g/dL [facility] Sodium [Moles/Vol] 148 mmol/L High 134 - 146 mmol/L [facility] Urea nitrogen [Mass/Vol] 86 mg/dL High 5 - 27 mg/dL [facility] Glucose Glucometer (BldC) [M ass/Vol]on 09-28-2023 Glucose [Mass/Vol] 201 mg/dL High 65 - 99 mg/dL [facility] Interpretation and review of laboratory results Abnormal [facility] Glucose [Mass/Vol] 234 mg/dL High 65 - 99 mg/dL [facility] Interpretation and review of laboratory results Abnormal [facility] Glucose [Mass/Vol] 185 mg/dL High 65 - 99 mg/dL [facility] Glucose [Mass/Vol] 179 mg/dL High 65 - 99 mg/dL [facility] Interpretation and review of laboratory results Abnormal [facility] Ionized calciumon 09-28-2023 Calcium.ionized (Bld) [Mass/Vol] 4.5 mg/dL 4.5 - 5.3 mg/dL [facility] Magnesiumon 09-28-2023 Magnesium [Mass/Vol] 2.0 mg/dL 1.8 - 2.6 mg/dL [facility] No Panel Informationon 09-28 Interpretation and review of laboratory results Abnormal [facility] Phosphoruson 09-28-2023 Phosphate [Mass/Vol] 5.3 mg/dL High 2.4 - 4.9 mg/dL [facility] Procalcitoninon 09-28-2023 Procalcitonin IA [Mass/Vol] 0.93 ng/mL High NINF - 0.05 ng/mL [facility] Procalcitonin IA [Mass/Vol]o n 09-28-2023 Interpretation and review of laboratory results Abnormal [facility] Protime & INRon 09-28-2023 INR Coag (PPP) [Relative time] 2.0 {INR} High [facility] Interpretation and review of laboratory results Abnormal [facility] PT Coag (PPP) [Time] 22.9 s High [facility] XR Chest Single viewon 09-28 SECTRAPACS [facility] Radiology Study observation (narrative) [facility] XR Chest Single viewOrdered By: Jamaal Cormier on 09-28-2023 [facility] Work Phone: Blood Gas, Arterialon 2022 Arterial patency Wrist artery --pre arterial puncture Pass [facility] Base excess Calc (Bld) [Moles/Vol] 1.0 mmol/L [facility] CO2 (Bld) [Partial pressure] 37.8 mm[Hg] [facility] HCO3 (Bld) [Moles/Vol] 25.1 mmol/L [facility] Interpretation and review of laboratory results Abnormal [facility] Oxygen (Bld) [Partial pressure] 73 mm[Hg] Low [facility] Oxygen therapy source and amount [CARE] Vent [facility] Oxygen/Inspired gas setting [Volume Fraction] Ventilator 28 % [facility] pH (Bld) 7.431 [pH] 7.350 - 7.450 [facility] Specimen site Narrative LRad [facility] Specimen type Nom (Spec) ARTERIAL [facility] CBC auto differentialon 08-31 Basophils (Bld) [#/Vol] 0.0 10*3/uL [facility] Basophils/100 WBC (Bld) 0.1 % [facility] Eosinophils (Bld) [#/Vol] 0.2 10*3/uL [facility] Eosinophils/100 WBC (Bld) 1.0 % [facility] Erythrocyte distribution width (RBC) [Ratio] 19.8 % High 11.5 - 15.0 % [facility] Hematocrit (Bld) [Volume fraction] 24.8 % Low 35 - 47 % [facility] Hemoglobin (Bld) [Mass/Vol] 8.1 g/dL Low 11.7 - 15.5 g/dL [facility] Interpretation and review of laboratory results Abnormal [facility] Lymphocytes (Bld) [#/Vol] 0.9 10*3/uL Low [facility] Lymphocytes/100 WBC (Bld) 5.1 % [facility] MCH (RBC) [Entitic mass] 30.8 pg 27 - 34 pg [facility] MCHC (RBC) [Mass/Vol] 32.5 g/dL 32 - 36 g/dL [facility] MCV (RBC) [Entitic vol] 95 fL 80 - 100 fL [facility] Monocytes (Bld) [#/Vol] 1.3 10*3/uL High [facility] Monocytes/100 WBC (Bld) 7.1 % [facility] Neutrophils (Bld) [#/Vol] 16.2 10*3/uL High [facility] Neutrophils/100 WBC (Bld) 86.7 % [facility] Platelet mean volume (Bld) [Entitic vol] 11.1 fL 7 - 12 fL [facility] Platelets (Bld) [#/Vol] 69 10*3/uL Low [facility] RBC (Bld) [#/Vol] 2.62 10*6/uL Low [facility] WBC corrected for nucl RBC Auto (Bld) [#/Vol] 18.7 High [facility] CT Head WO contraston 2022 SECTRAPACS [facility] Radiology Study observation (narrative) [facility] CT Head WO contrastOrdered B y: Matt Duncan on 09-27-2023 [facility] Work Phone: Calcium.ionized (Bld) [Mass/ Vol]on 09-27-2023 [facility] Interpretation and review [facility] laboratory results [facility] Interpretation and review of laboratory results Abnormal [facility] Comprehensive metabolic pane elver 09-27-2023 Albumin [Mass/Vol] 3.7 g/dL 3.2 - 5.3 g/dL [facility] ALP [Catalytic activity/Vol] 98 U/L 39 - 130 U/L [facility] ALT No additional P-5'-P [Catalytic activity/Vol] 18 U/L 0 - 31 U/L [facility] Anion gap [Moles/Vol] 15 mmol/L 5 - 15 mmol/L [facility] AST [Catalytic activity/Vol] 20 U/L 0 - 41 U/L [facility] Bilirubin [Mass/Vol] 1.2 mg/dL 0.3 - 1.2 mg/dL [facility] Calcium [Mass/Vol] 8.6 mg/dL 8.5 - 10. 5 mg/dL [facility] Chloride [Moles/Vol] 104 mmol/L 98 - 109 mmol/L [facility] CO2 [Moles/Vol] 27 mmol/L 22 - 32 mmol/L [facility] Creatinine [Mass/Vol] 3.54 mg/dL High 0.40 - 1.00 mg/dL [facility] eGFR (CKD-EPI)non-race dependent 14 Low - PINF [facility] Glucose [Mass/Vol] 142 mg/dL High 65 - 99 mg/dL [facility] Interpretation and review of laboratory results Abnormal [facility] Potassium [Moles/Vol] 3.7 mmol/L 3.5 - 5.0 mmol/L [facility] Protein [Mass/Vol] 6.3 g/dL 6.0 - 8.0 g/dL [facility] Sodium [Moles/Vol] 146 mmol/L 134 - 146 mmol/L [facility] Urea nitrogen [Mass/Vol] 85 mg/dL High 5 - 27 mg/dL [facility] Glucose Glucometer (BldC) [M ass/Vol]on 09-27-2023 Glucose [Mass/Vol] 142 mg/dL High 65 - 99 mg/dL [facility] Interpretation and review of laboratory results Abnormal [facility] Glucose [Mass/Vol] 132 mg/dL High 65 - 99 mg/dL [facility] Interpretation and review of laboratory results Abnormal [facility] Glucose [Mass/Vol] 125 mg/dL High 65 - 99 mg/dL [facility] Interpretation and review of laboratory results Abnormal [facility] Glucose [Mass/Vol] 171 mg/dL High 65 - 99 mg/dL [facility] Interpretation and review of laboratory results Abnormal [facility] Hemoglobin and hematocrit, b loodon 09-27-2023 Hematocrit (Bld) [Volume fraction] 23.0 % Low 35 - 47 % [facility] Hemoglobin (Bld) [Mass/Vol] 7.4 g/dL Low 11.7 - 15.5 g/dL [facility] Interpretation and review of laboratory results Abnormal [facility] Ionized calciumon 09-27-2023 Calcium.ionized (Bld) [Mass/Vol] 4.5 mg/dL 4.5 - 5.3 mg/dL [facility] Calcium.ionized (Bld) [Mass/Vol] 4.4 mg/dL Low 4.5 - 5.3 mg/dL [facility] Calcium.ionized (Bld) [Mass/Vol] 4.4 mg/dL Low 4.5 - 5.3 mg/dL [facility] Magnesiumon 09-27-2023 Magnesium [Mass/Vol] 2.1 mg/dL 1.8 - 2.6 mg/dL [facility] No Panel Informationon 09-27 [facility] Phosphoruson 09-27-2023 Phosphate [Mass/Vol] 4.6 mg/dL 2.4 - 4.9 mg/dL [facility] Procalcitoninon 09-27-2023 Procalcitonin IA [Mass/Vol] 0.74 ng/mL High NINF - 0.05 ng/mL [facility] Procalcitonin IA [Mass/Vol]o n 09-27-2023 Interpretation and review of laboratory results Abnormal [facility] Protime & INRon 09-27-2023 INR Coag (PPP) [Relative time] 2.3 {INR} High [facility] Interpretation and review of laboratory results Abnormal [facility] PT Coag (PPP) [Time] 25.5 s High [facility] XR Chest Single viewon 09-27 SECTRAPACS [facility] Radiology Study observation (narrative) [facility] XR Chest Single viewOrdered By: Krystal Anderson on 09-27-2023 [facility] Work Phone: [id number] Evaluationon 2022 vWf cleaving protease actual/normal Chromogenic method (PPP) [Rel catalytic activity/Vol] See Below [facility] Basic Metabolic Panelon 08-31 Anion gap [Moles/Vol] 17 mmol/L High 5 - 15 mmol/L [facility] Calcium [Mass/Vol] 8.1 mg/dL Low 8.5 - 10. 5 mg/dL [facility] Chloride [Moles/Vol] 103 mmol/L 98 - 109 mmol/L [facility] CO2 [Moles/Vol] 24 mmol/L 22 - 32 mmol/L [facility] Creatinine [Mass/Vol] 3.66 mg/dL High 0.40 - 1.00 mg/dL [facility] eGFR (CKD-EPI)non-race dependent 13 Low - PINF [facility] Glucose [Mass/Vol] 138 mg/dL High 65 - 99 mg/dL [facility] Interpretation and review of laboratory results Abnormal [facility] Potassium [Moles/Vol] 3.4 mmol/L Low 3.5 - 5.0 mmol/L [facility] Sodium [Moles/Vol] 144 mmol/L 134 - 146 mmol/L [facility] Urea nitrogen [Mass/Vol] 78 mg/dL High 5 - 27 mg/dL [facility] CBC auto differentialon 08-31 Basophils (Bld) [#/Vol] 0.0 10*3/uL [facility] Basophils/100 WBC (Bld) 0.1 % [facility] Eosinophils (Bld) [#/Vol] 0.1 10*3/uL [facility] Eosinophils/100 WBC (Bld) 0.7 % [facility] Erythrocyte distribution width (RBC) [Ratio] 19.0 % High 11.5 - 15.0 % [facility] Hematocrit (Bld) [Volume fraction] 23.4 % Low 35 - 47 % [facility] Hemoglobin (Bld) [Mass/Vol] 7.7 g/dL Low 11.7 - 15.5 g/dL [facility] Interpretation and review of laboratory results Abnormal [facility] Lymphocytes (Bld) [#/Vol] 0.6 10*3/uL Low [facility] Lymphocytes/100 WBC (Bld) 5.2 % [facility] MCH (RBC) [Entitic mass] 30.6 pg 27 - 34 pg [facility] MCHC (RBC) [Mass/Vol] 32.9 g/dL 32 - 36 g/dL [facility] MCV (RBC) [Entitic vol] 93 fL 80 - 100 fL [facility] Monocytes (Bld) [#/Vol] 0.9 10*3/uL [facility] Monocytes/100 WBC (Bld) 8.1 % [facility] Neutrophils (Bld) [#/Vol] 9.7 10*3/uL High [facility] Neutrophils/100 WBC (Bld) 85.9 % [facility] Platelet mean volume (Bld) [Entitic vol] 11.0 fL 7 - 12 fL [facility] Platelets (Bld) [#/Vol] 36 10*3/uL Low [facility] RBC (Bld) [#/Vol] 2.52 10*6/uL Low [facility] WBC corrected for nucl RBC Auto (Bld) [#/Vol] 11.3 High [facility] Calcium.ionized (Bld) [Mass/ Vol]on 09-26-2023 Interpretation and review of laboratory results Abnormal [facility] Glucose Glucometer (BldC) [M ass/Vol]on 09-26-2023 Glucose [Mass/Vol] 173 mg/dL High 65 - 99 mg/dL [facility] Interpretation and review of laboratory results Abnormal [facility] Glucose [Mass/Vol] 191 mg/dL High 65 - 99 mg/dL [facility] Interpretation and review of laboratory results Abnormal [facility] Glucose [Mass/Vol] 149 mg/dL High 65 - 99 mg/dL [facility] Interpretation and review of laboratory results Abnormal [facility] Glucose [Mass/Vol] 155 mg/dL High 65 - 99 mg/dL [facility] Interpretation and review of laboratory results Abnormal [facility] Glucose [Mass/Vol] 168 mg/dL High 65 - 99 mg/dL [facility] Interpretation and review of laboratory results Abnormal [facility] Heparin PF4 ABon 09-26-2023 Heparin induced platelet IgG IA [OD] 0.113 NINF [facility] Heparin induced platelet IgG IA [OD]on 09-26-2023 [facility] Ionized calciumon 09-26-2023 Calcium.ionized (Bld) [Mass/Vol] 4.3 mg/dL Low 4.5 - 5.3 mg/dL [facility] Ionized magnesiumon 09-26-20 Magnesium Ionized ISE (Bld) [Moles/Vol] 0.58 mmol/L 0.45 - 0.74 mmol/L [facility] Magnesiumon 09-26-2023 Magnesium [Mass/Vol] 2.2 mg/dL 1.8 - 2.6 mg/dL [facility] No Panel Informationon 09-26 [facility] Phosphate [Mass/Vol]on 09-26 Interpretation and review of laboratory results Abnormal [facility] Phosphoruson 09-26-2023 Phosphate [Mass/Vol] 5.4 mg/dL High 2.4 - 4.9 mg/dL [facility] Potassiumon 09-26-2023 Potassium [Moles/Vol] 3.5 mmol/L 3.5 - 5.0 mmol/L [facility] Potassium [Moles/Vol]on 08-31 [facility] Protein electrophoresis, uri neon 09-26-2023 Pathologist interpretation (Bld) [Interp] SEE SEPARATE REPORT [facility] Protime & INRon 09-26-2023 INR Coag (PPP) [Relative time] 2.1 {INR} High [facility] Interpretation and review of laboratory results Abnormal [facility] PT Coag (PPP) [Time] 24.3 s High [facility] vWf cleaving protease actual /normal Chromogenic method (PPP) [Rel catalytic activity/Vol]on 09-26-2023 [facility] [id number] Panel Interpretatio non 09-25-2023 [id number] Panel Interpretation See below [facility] [id number] Path Review See below [facility] Anti XA unfractionated hepar inon 09-25-2023 Heparin unfractionated Chromogenic method Qn (PPP) Low [facility] CBC auto differentialon 08-31 Basophils (Bld) [#/Vol] 0.0 10*3/uL [facility] Basophils/100 WBC (Bld) 0.1 % [facility] Eosinophils (Bld) [#/Vol] 0.0 10*3/uL [facility] Eosinophils/100 WBC (Bld) 0.2 % [facility] Erythrocyte distribution width (RBC) [Ratio] 19.4 % High 11.5 - 15.0 % [facility] Hematocrit (Bld) [Volume fraction] 24.1 % Low 35 - 47 % [facility] Hemoglobin (Bld) [Mass/Vol] 7.9 g/dL Low 11.7 - 15.5 g/dL [facility] Interpretation and review of laboratory results Abnormal [facility] Lymphocytes (Bld) [#/Vol] 0.5 10*3/uL Low [facility] Lymphocytes/100 WBC (Bld) 5.0 % [facility] MCH (RBC) [Entitic mass] 30.6 pg 27 - 34 pg [facility] MCHC (RBC) [Mass/Vol] 33.0 g/dL 32 - 36 g/dL [facility] MCV (RBC) [Entitic vol] 93 fL 80 - 100 fL [facility] Monocytes (Bld) [#/Vol] 0.8 10*3/uL [facility] Monocytes/100 WBC (Bld) 7.1 % [facility] Neutrophils (Bld) [#/Vol] 9.2 10*3/uL High [facility] Neutrophils/100 WBC (Bld) 87.6 % [facility] Platelet mean volume (Bld) [Entitic vol] 10.4 fL 7 - 12 fL [facility] Platelets (Bld) [#/Vol] 37 10*3/uL Low [facility] RBC (Bld) [#/Vol] 2.59 10*6/uL Low [facility] WBC corrected for nucl RBC Auto (Bld) [#/Vol] 10.5 [facility] Clinical Pathology Blood Sme ar Review Clinicalon 09-25-2023 Pathologist review Pathologist comment (Bld) [Interp] NOTE [facility] Clinical Pathology Reviewon 09-25-2023 COPATH [facility] Comprehensive metabolic pane elver 09-25-2023 Albumin [Mass/Vol] 3.7 g/dL 3.2 - 5.3 g/dL [facility] ALP [Catalytic activity/Vol] 77 U/L 39 - 130 U/L [facility] ALT No additional P-5'-P [Catalytic activity/Vol] 12 U/L 0 - 31 U/L [facility] Anion gap [Moles/Vol] 17 mmol/L High 5 - 15 mmol/L [facility] AST [Catalytic activity/Vol] 19 U/L 0 - 41 U/L [facility] Bilirubin [Mass/Vol] 1.0 mg/dL 0.3 - 1.2 mg/dL [facility] Calcium [Mass/Vol] 8.0 mg/dL Low 8.5 - 10. 5 mg/dL [facility] Chloride [Moles/Vol] 102 mmol/L 98 - 109 mmol/L [facility] CO2 [Moles/Vol] 23 mmol/L 22 - 32 mmol/L [facility] Creatinine [Mass/Vol] 3.79 mg/dL High 0.40 - 1.00 mg/dL [facility] eGFR (CKD-EPI)non-race dependent 13 Low - PINF [facility] Glucose [Mass/Vol] 141 mg/dL High 65 - 99 mg/dL [facility] Interpretation and review of laboratory results Abnormal [facility] Potassium [Moles/Vol] 3.3 mmol/L Low 3.5 - 5.0 mmol/L [facility] Protein [Mass/Vol] 6.2 g/dL 6.0 - 8.0 g/dL [facility] Sodium [Moles/Vol] 142 mmol/L 134 - 146 mmol/L [facility] Urea nitrogen [Mass/Vol] 68 mg/dL High 5 - 27 mg/dL [facility] Glucose Glucometer (BldC) [M ass/Vol]on 09-25-2023 Glucose [Mass/Vol] 228 mg/dL High 65 - 99 mg/dL [facility] Interpretation and review of laboratory results Abnormal [facility] Glucose [Mass/Vol] 138 mg/dL High 65 - 99 mg/dL [facility] Interpretation and review of laboratory results Abnormal [facility] Magnesiumon 09-25-2023 Magnesium [Mass/Vol] 2.1 mg/dL 1.8 - 2.6 mg/dL [facility] No Panel Informationon 09-25 [facility] Interpretation and review of laboratory results Abnormal [facility] Pathologist review Pathologi st comment (Bld) [Interp]on 09-25-2023 [facility] Phosphate [Mass/Vol]on 09-25 Interpretation and review of laboratory results Abnormal [facility] Phosphoruson 09-25-2023 Phosphate [Mass/Vol] 5.7 mg/dL High 2.4 - 4.9 mg/dL [facility] Protime & INRon 09-25-2023 INR Coag (PPP) [Relative time] 1.8 {INR} High [facility] PT Coag (PPP) [Time] 20.3 s High [facility] ANCAon 09-24-2023 Neutrophil cytoplasmic Ab IF Ql (S) See Below [facility] Anti XA unfractionated hepar inon 09-24-2023 Heparin unfractionated Chromogenic method Qn (PPP) 0.64 [facility] Bacteria identified Cx Nom ( U)on 09-24-2023 Service comment (Unsp spec) [Interp] NO GROWTH AT <1000 CFU/mL [facility] CBC auto differentialon 08-31 Basophils (Bld) [#/Vol] 0.0 10*3/uL [facility] Basophils/100 WBC (Bld) 0.1 % [facility] Eosinophils (Bld) [#/Vol] 0.0 10*3/uL [facility] Eosinophils/100 WBC (Bld) 0.1 % [facility] Erythrocyte distribution width (RBC) [Ratio] 19.4 % High 11.5 - 15.0 % [facility] Hematocrit (Bld) [Volume fraction] 25.5 % Low 35 - 47 % [facility] Hemoglobin (Bld) [Mass/Vol] 8.4 g/dL Low 11.7 - 15.5 g/dL [facility] Interpretation and review of laboratory results Abnormal [facility] Lymphocytes (Bld) [#/Vol] 0.6 10*3/uL Low [facility] Lymphocytes/100 WBC (Bld) 5.6 % [facility] MCH (RBC) [Entitic mass] 30.6 pg 27 - 34 pg [facility] MCHC (RBC) [Mass/Vol] 33.0 g/dL 32 - 36 g/dL [facility] MCV (RBC) [Entitic vol] 93 fL 80 - 100 fL [facility] Monocytes (Bld) [#/Vol] 0.8 10*3/uL [facility] Monocytes/100 WBC (Bld) 7.9 % [facility] Neutrophils (Bld) [#/Vol] 8.7 10*3/uL High [facility] Neutrophils/100 WBC (Bld) 86.3 % [facility] Platelet mean volume (Bld) [Entitic vol] 9.9 fL 7 - 12 fL [facility] Platelets (Bld) [#/Vol] 37 10*3/uL Low [facility] RBC (Bld) [#/Vol] 2.75 10*6/uL Low [facility] WBC corrected for nucl RBC Auto (Bld) [#/Vol] 10.1 [facility] Cobalamin (Vitamin B12) [Mas s/Vol]on 09-24-2023 [facility] Comprehensive metabolic pane elver 09-24-2023 Albumin [Mass/Vol] 3.4 g/dL 3.2 - 5.3 g/dL [facility] ALP [Catalytic activity/Vol] 85 U/L 39 - 130 U/L [facility] ALT No additional P-5'-P [Catalytic activity/Vol] 13 U/L 0 - 31 U/L [facility] Anion gap [Moles/Vol] 17 mmol/L High 5 - 15 mmol/L [facility] AST [Catalytic activity/Vol] 23 U/L 0 - 41 U/L [facility] Bilirubin [Mass/Vol] 0.9 mg/dL 0.3 - 1.2 mg/dL [facility] Calcium [Mass/Vol] 7.7 mg/dL Low 8.5 - 10. 5 mg/dL [facility] Chloride [Moles/Vol] 103 mmol/L 98 - 109 mmol/L [facility] CO2 [Moles/Vol] 22 mmol/L 22 - 32 mmol/L [facility] Creatinine [Mass/Vol] 4.11 mg/dL High 0.40 - 1.00 mg/dL [facility] eGFR (CKD-EPI)non-race dependent 11 Low - PINF [facility] Glucose [Mass/Vol] 113 mg/dL High 65 - 99 mg/dL [facility] Potassium [Moles/Vol] 3.5 mmol/L 3.5 - 5.0 mmol/L [facility] Protein [Mass/Vol] 6.0 g/dL 6.0 - 8.0 g/dL [facility] Sodium [Moles/Vol] 142 mmol/L 134 - 146 mmol/L [facility] Urea nitrogen [Mass/Vol] 62 mg/dL High 5 - 27 mg/dL [facility] Ferritinon 09-24-2023 Ferritin [Mass/Vol] 150 ng/mL 11 - 307 ng/mL [facility] Ferritin [Mass/Vol]on 2022 [facility] Fibrin split productson 08-31 Fibrin+Fibrinogen fragments LA Qn (PPP) 5-20 H Critically abnormal NINF - 5 ug/mL [facility] Fibrin+Fibrinogen fragments LA Qn (PPP)on 09-24-2023 Interpretation and review of laboratory results Abnormal [facility] Fibrinogenon 09-24-2023 Fibrinogen Coagulation.derive d (PPP) [Mass/Vol] 324 mg/dL 190 - 480 mg/dL [facility] Folateon 09-24-2023 Folate [Mass/Vol] 4.2 ng/mL Low 5.8 - PINF ng/mL [facility] Folate [Mass/Vol]on 09-24-20 Interpretation and review of laboratory results Abnormal [facility] Glucose Glucometer (BldC) [M ass/Vol]on 09-24-2023 Glucose [Mass/Vol] 133 mg/dL High 65 - 99 mg/dL [facility] Interpretation and review of laboratory results Abnormal [facility] Glucose [Mass/Vol] 165 mg/dL High 65 - 99 mg/dL [facility] Interpretation and review of laboratory results Abnormal [facility] Glucose [Mass/Vol] 162 mg/dL High 65 - 99 mg/dL [facility] Interpretation and review of laboratory results Abnormal [facility] Glucose [Mass/Vol] 201 mg/dL High 65 - 99 mg/dL [facility] Interpretation and review of laboratory results Abnormal [facility] Glucose [Mass/Vol] 135 mg/dL High 65 - 99 mg/dL [facility] Interpretation and review of laboratory results Abnormal [facility] Haptoglobinon 09-24-2023 Haptoglobin Nephelometry [Mass/Vol] 264 mg/dL High 32 - 228 mg/dL [facility] Haptoglobin Nephelometry [Ma ss/Vol]on 09-24-2023 Interpretation and review of laboratory results Abnormal [facility] Hemoglobin and hematocrit, b loodon 09-24-2023 Hematocrit (Bld) [Volume fraction] 24.3 % Low 35 - 47 % [facility] Hemoglobin (Bld) [Mass/Vol] 8.1 g/dL Low 11.7 - 15.5 g/dL [facility] Interpretation and review of laboratory results Abnormal [facility] Iron and TIBCon 09-24-2023 Interpretation and review of laboratory results Abnormal [facility] Iron [Mass/Vol] 271 ug/dL High 50 - 170 ug/dL [facility] Iron binding capacity [Mass/Vol] 312 ug/dL 250 - 425 ug/dL [facility] Iron saturation [Mass fraction] 87 High [facility] Magnesiumon 09-24-2023 Magnesium [Mass/Vol] 2.1 mg/dL 1.8 - 2.6 mg/dL [facility] Neutrophil cytoplasmic Ab IF Ql (S)on 09-24-2023 [facility] No Panel Informationon 09-24 [facility] Interpretation and review of laboratory results Abnormal [facility] Phosphoruson 09-24-2023 Phosphate [Mass/Vol] 5.4 mg/dL High 2.4 - 4.9 mg/dL [facility] Protein electrophoresis, ser umon 09-24-2023 Albumin [Mass/Vol] 2.9 g/dL Low 3.4 - 5.3 g/dL [facility] Alpha 1 globulin Elph [Mass/Vol] 0.4 g/dL 0.1 - 0.4 g/dL [facility] Alpha 2 globulin Elph [Mass/Vol] 0.8 g/dL 0.4 - 1.1 g/dL [facility] Beta globulin Elph [Mass/Vol] 0.7 g/dL 0.5 - 1.2 g/dL [facility] Gamma globulin Elph [Mass/Vol] 0.9 g/dL 0.5 - 1.6 g/dL [facility] Interpretation and review of laboratory results Abnormal [facility] Pathologist interpretation (Bld) [Interp] Unremarkable protein distribution, no monoclonal bands. [facility] Protein [Mass/Vol] 5.6 g/dL Low 6.0 - 8.0 g/dL [facility] Protime & INRon 09-24-2023 INR Coag (PPP) [Relative time] 1.6 {INR} High [facility] Interpretation and review of laboratory results Abnormal [facility] PT Coag (PPP) [Time] 18.2 s High [facility] Reticulocyteson 09-24-2023 Reticulocytes/100 RBC (Bld) 1.4 % 0.4 - 2.2 % [facility] Vitamin B12on 09-24-2023 Cobalamin (Vitamin B12) [Mass/Vol] 317 pg/mL 180 - 914 pg/mL [facility] Anti XA unfractionated hepar inon 09-23-2023 Heparin unfractionated Chromogenic method Qn (PPP) 0.67 [facility] Heparin unfractionated Chromogenic method Qn (PPP) 0.50 [facility] Blood Gas, Arterialon 2022 Arterial patency Wrist artery --pre arterial puncture Pass [facility] Base deficit (Bld) [Moles/Vol] 3.0 mmol/L High [facility] CO2 (Bld) [Partial pressure] 35.0 mm[Hg] [facility] HCO3 (Bld) [Moles/Vol] 21.3 mmol/L Low [facility] Interpretation and review of laboratory results Abnormal [facility] Oxygen (Bld) [Partial pressure] 119 mm[Hg] High [facility] Oxygen therapy source and amount [CARE] NPPV [facility] Oxygen/Inspired gas setting [Volume Fraction] Ventilator 40 % [facility] pH (Bld) 7.392 [pH] 7.350 - 7.450 [facility] Specimen site Narrative LRad [facility] Specimen type Nom (Spec) ARTERIAL [facility] CBC auto differentialon 08-31 Basophils (Bld) [#/Vol] 0.0 10*3/uL [facility] Basophils/100 WBC (Bld) 0.1 % [facility] Eosinophils (Bld) [#/Vol] 0.0 10*3/uL [facility] Eosinophils/100 WBC (Bld) 0.1 % [facility] Erythrocyte distribution width (RBC) [Ratio] 19.2 % High 11.5 - 15.0 % [facility] Hematocrit (Bld) [Volume fraction] 24.9 % Low 35 - 47 % [facility] Hemoglobin (Bld) [Mass/Vol] 8.2 g/dL Low 11.7 - 15.5 g/dL [facility] Interpretation and review of laboratory results Abnormal [facility] Lymphocytes (Bld) [#/Vol] 0.6 10*3/uL Low [facility] Lymphocytes/100 WBC (Bld) 6.7 % [facility] MCH (RBC) [Entitic mass] 30.6 pg 27 - 34 pg [facility] MCHC (RBC) [Mass/Vol] 32.8 g/dL 32 - 36 g/dL [facility] MCV (RBC) [Entitic vol] 93 fL 80 - 100 fL [facility] Monocytes (Bld) [#/Vol] 0.6 10*3/uL [facility] Monocytes/100 WBC (Bld) 7.2 % [facility] Neutrophils (Bld) [#/Vol] 7.3 10*3/uL High [facility] Neutrophils/100 WBC (Bld) 85.9 % [facility] Platelet mean volume (Bld) [Entitic vol] 9.6 fL 7 - 12 fL [facility] Platelets (Bld) [#/Vol] 38 10*3/uL Low [facility] RBC (Bld) [#/Vol] 2.67 10*6/uL Low [facility] WBC corrected for nucl RBC Auto (Bld) [#/Vol] 8.5 [facility] Comprehensive metabolic pane elver 09-23-2023 Albumin [Mass/Vol] 3.7 g/dL 3.2 - 5.3 g/dL [facility] ALP [Catalytic activity/Vol] 87 U/L 39 - 130 U/L [facility] ALT No additional P-5'-P [Catalytic activity/Vol] 16 U/L 0 - 31 U/L [facility] Anion gap [Moles/Vol] 13 mmol/L 5 - 15 mmol/L [facility] AST [Catalytic activity/Vol] 30 U/L 0 - 41 U/L [facility] Bilirubin [Mass/Vol] 0.8 mg/dL 0.3 - 1.2 mg/dL [facility] Calcium [Mass/Vol] 7.7 mg/dL Low 8.5 - 10. 5 mg/dL [facility] Chloride [Moles/Vol] 101 mmol/L 98 - 109 mmol/L [facility] CO2 [Moles/Vol] 24 mmol/L 22 - 32 mmol/L [facility] Creatinine [Mass/Vol] 4.16 mg/dL High 0.40 - 1.00 mg/dL [facility] eGFR (CKD-EPI)non-race dependent 11 Low - PINF [facility] Glucose [Mass/Vol] 123 mg/dL High 65 - 99 mg/dL [facility] Potassium [Moles/Vol] 3.9 mmol/L 3.5 - 5.0 mmol/L [facility] Protein [Mass/Vol] 6.0 g/dL 6.0 - 8.0 g/dL [facility] Sodium [Moles/Vol] 138 mmol/L 134 - 146 mmol/L [facility] Urea nitrogen [Mass/Vol] 54 mg/dL High 5 - 27 mg/dL [facility] Glucose Glucometer (BldC) [M ass/Vol]on 09-23-2023 Glucose [Mass/Vol] 115 mg/dL High 65 - 99 mg/dL [facility] Interpretation and review of laboratory results Abnormal [facility] Glucose [Mass/Vol] 145 mg/dL High 65 - 99 mg/dL [facility] Interpretation and review of laboratory results Abnormal [facility] Glucose [Mass/Vol] 112 mg/dL High 65 - 99 mg/dL [facility] Interpretation and review of laboratory results Abnormal [facility] Glucose [Mass/Vol] 129 mg/dL High 65 - 99 mg/dL [facility] Interpretation and review of laboratory results Abnormal [facility] Heparin unfractionated Chrom ogenic method Qn (PPP)on 09-23-2023 [facility] Magnesiumon 09-23-2023 Magnesium [Mass/Vol] 2.2 mg/dL 1.8 - 2.6 mg/dL [facility] No Panel Informationon 09-23 Interpretation and review of laboratory results Abnormal [facility] Phosphoruson 09-23-2023 Phosphate [Mass/Vol] 5.5 mg/dL High 2.4 - 4.9 mg/dL [facility] Protime & INRon 09-23-2023 INR Coag (PPP) [Relative time] 1.4 {INR} High [facility] Interpretation and review of laboratory results Abnormal [facility] PT Coag (PPP) [Time] 16.4 s High [facility] ABO Rh Repeaton 09-22-2023 ABO O [facility] Rh Nom (Bld) Positive [facility] Basic Metabolic Panelon 08-31 Anion gap [Moles/Vol] 19 mmol/L High 5 - 15 mmol/L [facility] Calcium [Mass/Vol] 7.0 mg/dL Low 8.5 - 10. 5 mg/dL [facility] Chloride [Moles/Vol] 102 mmol/L 98 - 109 mmol/L [facility] CO2 [Moles/Vol] 20 mmol/L Low 22 - 32 mmol/L [facility] Creatinine [Mass/Vol] 5.70 mg/dL High 0.40 - 1.00 mg/dL [facility] eGFR (CKD-EPI)non-race dependent 8 Low - PINF [facility] Glucose [Mass/Vol] 133 mg/dL High 65 - 99 mg/dL [facility] Potassium [Moles/Vol] 4.4 mmol/L 3.5 - 5.0 mmol/L [facility] Sodium [Moles/Vol] 141 mmol/L 134 - 146 mmol/L [facility] Urea nitrogen [Mass/Vol] 83 mg/dL High 5 - 27 mg/dL [facility] CBC without diffon Hematocrit (Bld) [Volume fraction] 25.6 % Low 35 - 47 % [facility] Hemoglobin (Bld) [Mass/Vol] 8.5 g/dL Low 11.7 - 15.5 g/dL [facility] MCH (RBC) [Entitic mass] 30.6 pg 27 - 34 pg [facility] MCHC (RBC) [Mass/Vol] 33.0 g/dL 32 - 36 g/dL [facility] MCV (RBC) [Entitic vol] 93 fL 80 - 100 fL [facility] Platelets (Bld) [#/Vol] 45 10*3/uL Low [facility] RBC (Bld) [#/Vol] 2.77 10*6/uL Low [facility] WBC corrected for nucl RBC Auto (Bld) [#/Vol] 8.3 [facility] Calcium.ionized (Bld) [Mass/ Vol]on 09-22-2023 Interpretation and review of laboratory results Abnormal [facility] Glucose Glucometer (BldC) [M ass/Vol]on 09-22-2023 Glucose [Mass/Vol] 89 mg/dL 65 - 99 mg/dL [facility] Glucose [Mass/Vol] 86 mg/dL 65 - 99 mg/dL [facility] Glucose [Mass/Vol] 113 mg/dL High 65 - 99 mg/dL [facility] Interpretation and review of laboratory results Abnormal [facility] Glucose [Mass/Vol] 139 mg/dL High 65 - 99 mg/dL [facility] Interpretation and review of laboratory results Abnormal [facility] Ionized calciumon 09-22-2023 Calcium.ionized (Bld) [Mass/Vol] 3.9 mg/dL Low 4.5 - 5.3 mg/dL [facility] Magnesiumon 09-22-2023 Magnesium [Mass/Vol] 2.4 mg/dL 1.8 - 2.6 mg/dL [facility] No Panel Informationon 09-22 Interpretation and review of laboratory results Abnormal [facility] POCT Arterial ICODEon 2022 Arterial patency Wrist artery --pre arterial puncture Pass [facility] Base deficit (Bld) [Moles/Vol] 2.0 mmol/L [facility] Calcium.ionized (Bld) [Moles/Vol] 4.1 mg/dL Low 4.5 - 5.3 mg/dL [facility] CO2 (Bld) [Partial pressure] 26.8 mm[Hg] Low [facility] Glucose [Mass/Vol] 110 mg/dL High 65 - 99 mg/dL [facility] HCO3 (Bld) [Moles/Vol] 20.7 mmol/L Low [facility] Hematocrit (Bld) [Volume fraction] 28 % Low 35 - 47 % [facility] Interpretation and review of laboratory results Abnormal [facility] Oxygen (Bld) [Partial pressure] 68 mm[Hg] Low [facility] Oxygen therapy source and amount [CARE] NC [facility] Oxygen/Inspired gas setting [Volume Fraction] Ventilator 40 % [facility] pH (Bld) 7.497 [pH] High 7.350 - 7.450 [facility] Potassium [Moles/Vol] 3.7 mmol/L 3.5 - 5.0 mmol/L [facility] Sodium [Moles/Vol] 137 mmol/L 134 - 146 mmol/L [facility] Specimen site Narrative [facility]Rad [facility] Specimen type Nom (Spec) ARTERIAL [facility] Phosphoruson 09-22-2023 Phosphate [Mass/Vol] 8.6 mg/dL High 2.4 - 4.9 mg/dL [facility] XR Chest Single viewon 09-22 SECTRAPACS [facility] Radiology Study observation (narrative) [facility] XR Chest Single viewOrdered By: Jose Tinoco on 09-22-2023 [facility] Work Phone: BLOOD CULTUREon 09-20-2023 Bacteria identified Aer cx Nom (Bld) CULTURE RESULTS NO GROWTH 5 DAYS Normal [facility] Bacteria identified Aer cx Nom (Bld) CULTURE RESULTS NO GROWTH 5 DAYS Normal [facility] CBC AND AUTO DIFFon 09-20-20 23 ABSOLUTE BASOPHIL 0.0 X10E9/L Normal 0.0-0.2 [facility] Comment on above: Performed By: #### [place], [address]257-4, 33166-4, 79368-0, 71914-9, 90128-8, 2157-6, 94312-8, PINR, CBCA, TSHR #### [facility] ([id number]) [address] [place] [address], [place] [address] ABSOLUTE NEUTROPHIL 7.0 X10E9/L High 1.5-6.6 [facility] Comment on above: Performed By: #### [place], 55996-4, 33326-9, 17617-9, 93766-3, 13126-3, 2157-6, 95955-5, PINR, CBCA, TSHR #### [facility] ([id number]) [address] [place] [address] [place] [address] Basophils/100 WBC (Bld) 0.1 % Normal [facility] Comment on above: Performed By: #### C MP, 31441-6, 40523-8, 37956-8, 81951-2, 50864-4, 2157-6, 03317-0, PINR, CBCA, TSHR #### [facility] ([id number]) [address] [place] [address] Eosinophils (Bld) [#/Vol] 0.0 10*3/uL Normal 0.0-0.4 [facility] Comment on above: Performed By: #### C MP, 23021-8, 46057-9, 24906-8, 10007-3, 50759-3, 2157-6, 70391-2, PINR, CBCA, TSHR #### [facility] ([id number]) [address] [place] [address] Eosinophils/100 WBC (Bld) 0.5 % Normal [facility] Comment on above: Performed By: #### C MP, 55219-1, 24527-8, 40570-5, 18010-5, 98762-6, 2157-6, 93339-8, PINR, CBCA, TSHR #### [facility] ([id number]) [address] [place] [address], [place] [address] Erythrocyte distribution width (RBC) [Ratio] 20.5 % High 11.5-15.0 [facility] Comment on above: Performed By: #### C MP, 68584-0, 90755-3, 25603-1, 77402-1, 43189-0, 2157-6, 58669-6, PINR, CBCA, TSHR #### [facility] ([id number]) [address] [place] [address] Hematocrit (Bld) [Volume fraction] 29.5 % Low 35-47 [facility] Comment on above: Performed By: #### C MP, 47894-2, 41015-6, 59841-9, 06150-2, 72862-0, 2157-6, 64203-8, PINR, CBCA, TSHR #### [facility] ([id number]) [address] [place] [address] Hemoglobin (Bld) [Mass/Vol] 9.6 g/dL Low 11.7-15.5 [facility] Comment on above: Performed By: #### C MP, 27107-4, 89772-1, 90338-4, 04370-8, 47807-0, 2157-6, 34150-7, PINR, CBCA, TSHR #### [facility] ([id number]) [address] [place] [address] Lymphocytes (Bld) [#/Vol] 0.5 10*3/uL Low 1.0-3.5 [facility] Comment on above: Performed By: #### C MP, 47636-7, 19990-2, 11039-6, 35436-1, 86644-9, 2157-6, 89700-3, PINR, CBCA, TSHR #### [facility] ([id number]) [address] [place] [address] Lymphocytes/100 WBC (Bld) 6.7 % Normal [facility] Comment on above: Performed By: #### C MP, 28273-7, 74887-4, 26530-1, 66045-4, 22246-8, 2157-6, 03846-3, PINR, CBCA, TSHR #### [facility] ([id number]) [address] [place] [address] MCH (RBC) [Entitic mass] 30.5 pg Normal 27-34 [facility] Comment on above: Performed By: #### C MP, 75160-4, 20454-5, 68785-5, 65081-4, 77484-1, 2157-6, 85714-6, PINR, CBCA, TSHR #### [facility] ([id number]) [address] [place] [address]39[address] MCHC (RBC) [Mass/Vol] 32.5 g/dL Normal 32-36 [facility] Comment on above: Performed By: #### C MP, 18183-0, 83524-9, 09573-3, 11226-2, 06522-7, 2157-6, 27162-5, PINR, CBCA, TSHR #### [facility] ([id number]) [address] [place] [address] MCV (RBC) [Entitic vol] 94 fL Normal 80-100 [facility] Comment on above: Performed By: #### C MP, 80653-8, 46355-6, 86818-9, 24808-3, 41979-7, 2157-6, 96363-3, PINR, CBCA, TSHR #### [facility] ([id number]) [address] [place] [address] Monocytes (Bld) [#/Vol] 0.5 10*3/uL Normal 0-0.9 [facility] Comment on above: Performed By: #### C MP, 08990-8, 13498-9, 19997-0, 37853-9, 07525-4, 2157-6, 84993-6, PINR, CBCA, TSHR #### [facility] ([id number]) [address] [place] [address] Monocytes/100 WBC (Bld) 6.4 % Normal [facility] Comment on above: Performed By: #### C MP, 17225-8, 12279-7, 78822-8, 92657-9, 63535-7, 2157-6, 78107-8, PINR, CBCA, TSHR #### [facility] ([id number]) [address] [place] [address] 18406 Neutrophils/100 WBC (Bld) 86.3 % Normal [facility] Comment on above: Performed By: #### C ROSALBA, 61129-9, 13975-8, 52822-8, 23597-8, 87501-2, 2157-6, 85433-7, PINR, CBCA, TSHR #### [facility] ([id number]) [address] [place] [address]64[address] Platelet mean volume (Bld) [Entitic vol] 11.6 fL Normal 7-12 [facility] Comment on above: Performed By: #### C MP, 50402-4, 48916-6, 12302-6, 90131-9, 94245-3, 2157-6, 02646-1, PINR, CBCA, TSHR #### [facility] ([id number]) [address] [place] [address]90[address] Platelets (Bld) [#/Vol] 62 10*3/uL Low 150-450 [facility] Comment on above: Performed By: #### C MP, 74943-9, 85081-7, 47219-9, 91964-9, 61428-8, 2157-6, 44310-8, PINR, CBCA, TSHR #### [facility] ([id number]) [address] [place] [address]43 RBC COUNT 3.14 X10E12/L Low 3.80-5.20 [facility] Comment on above: Performed By: #### C MP, 15556-1, 78452-8, 01152-4, 77408-2, 26084-3, 2157-6, 04986-2, PINR, CBCA, TSHR #### [facility] ([id number]) [address] [place] [address]3913 WBC (Bld) [#/Vol] 8.1 10*3/uL Normal 4.0-11.0 [facility] Comment on above: Performed By: #### C MP, 19003-1, 99535-1, 16302-2, 19759-2, 62653-3, 2157-6, 99309-6, PINR, CBCA, TSHR #### [facility] ([id number]) [address] [place] [address] 10778 CK [Catalytic activity/Vol]o n 09-20-2023 CPK 100 U/L Normal 24-170 [facility] Comment on above: Performed By: #### C MP, 15903-2, 13300-8, 61715-8, 44523-2, 31745-5, 2157-6, 71110-9, PINR, CBCA, TSHR #### [facility] ([id number]) [address] [place] [address] 26421 COMPREHENSIVE METABOLIC PANE [facility] 09-20-2023 Albumin [Mass/Vol] 3.2 g/dL Normal 3.2-5.3 [facility] Comment on above: Performed By: #### C MP, 20686-7, 15743-5, 07300-9, 08137-4, 24133-6, 2157-6, 72822-5, PINR, CBCA, TSHR #### [facility] ([id number]) [address] [place] [address] 11071 ALP [Catalytic activity/Vol] 98 U/L Normal 39-130 [facility] Comment on above: Performed By: #### C MP, 86965-2, 57504-2, 54717-3, 98439-9, 98786-2, 2157-6, 68084-8, PINR, CBCA, TSHR #### [facility] ([id number]) [address] [place] [address] 98117 ALT [Catalytic activity/Vol] 27 U/L Normal 0-31 [facility] Comment on above: Performed By: #### C MP, 27777-8, 53760-8, 13637-1, 44486-6, 86777-2, 2157-6, 86870-3, PINR, CBCA, TSHR #### [facility] ([id number]) [address] [place] [address] 59112 Anion gap [Moles/Vol] 10 mmol/L Normal 5-15 [facility] Comment on above: Performed By: #### C MP, 84418-9, 15070-1, 37836-1, 90378-3, 00819-7, 2157-6, 12068-3, PINR, CBCA, TSHR #### [facility] ([id number]) [address] [place] [address] 97933 AST [Catalytic activity/Vol] 34 U/L Normal 0-41 [facility] Comment on above: Performed By: #### C MP, 84113-1, 09824-1, 41080-8, 41193-3, 63097-7, 2157-6, 45363-4, PINR, CBCA, TSHR #### [facility] ([id number]) [address] [place] [address] 31769 Bilirubin [Mass/Vol] 0.7 mg/dL Normal 0.3-1.2 [facility] Comment on above: Performed By: #### C MP, 22469-6, 81005-4, 29831-7, 97952-3, 22583-2, 2157-6, 70989-4, PINR, CBCA, TSHR #### [facility] ([id number]) [address] [place] [address] 52933 Calcium [Mass/Vol] 7.1 mg/dL Low 8.5-10.5 [facility] Comment on above: Performed By: #### C MP, 58672-5, 35456-7, 94903-8, 86025-2, 47027-8, 2157-6, 16883-1, PINR, CBCA, TSHR #### [facility] ([id number]) [address] [place] [address] 54647 Chloride [Moles/Vol] 108 mmol/L Normal 98-109 [facility] Comment on above: Performed By: #### C MP, 99485-3, 93943-8, 94730-9, 39177-1, 13293-8, 2157-6, 72146-9, PINR, CBCA, TSHR #### [facility] ([id number]) [address] [place] [address] 24526 CO2 [Moles/Vol] 15 mmol/L Low 22-32 [facility] Comment on above: Performed By: #### C MP, 05664-0, 47831-9, 59763-0, 23629-4, 12343-0, 2157-6, 84302-9, PINR, CBCA, TSHR #### [facility] ([id number]) [address] [place] [address] 33883 Creatinine [Mass/Vol] 6.52 mg/dL High 0.40-1.00 [facility] Comment on above: Result Comment: METH OD TRACEABLE TO IDMS STANDARD Performed By: #### C MP, 71811-9, 42508-1, 31512-4, 04836-9, 62550-0, 2157-6, 73970-1, PINR, CBCA, TSHR #### [facility] ([id number]) [address] [place] [address] 77040 GFR/1.73 sq M.predicted among non-blacks MDRD (S/P/Bld) [Vol rate/Area] 7 mL/min/{1.73_m2} Low >59 [facility] Comment on above: Result Comment: Reported eGFR is based on the CKD-EPI 2020 equation that does not use a race coefficient. Performed By: #### C ROSALBA, 84301-5, 97126-5, 51604-4, 88757-9, 80264-8, 2157-6, 92808-7, PINR, CBCA, TSHR #### [facility] ([id number]) [address] [place] [address] 95857 Glucose [Mass/Vol] 100 mg/dL High 65-99 [facility] Comment on above: Performed By: #### C ROSALBA, 01764-5, 70129-7, 06766-5, 85856-7, 37247-0, 2157-6, 52242-5, PINR, CBCA, TSHR #### [facility] ([id number]) [address] [place] [address] 06820 Potassium [Moles/Vol] 4.9 mmol/L Normal 3.5-5.0 [facility] Comment on above: Performed By: #### C ROSALBA, 30653-3, 36680-5, 94153-3, 90574-5, 80477-9, 2157-6, 93285-1, PINR, CBCA, TSHR #### [facility] ([id number]) [address] [place] [address] 30398 Protein [Mass/Vol] 6.4 g/dL Normal 6.0-8.0 [facility] Comment on above: Performed By: #### C ROSALBA, 78990-8, 42246-4, 32967-5, 00743-9, 07911-0, 2157-6, 44756-0, PINR, CBCA, TSHR #### [facility] ([id number]) [address] [place] [address] Sodium [Moles/Vol] 133 mmol/L Low 134-146 [facility] Comment on above: Performed By: #### C MP, 32330-5, 89257-1, 82815-5, 56595-3, 31512-6, 2157-6, 50917-0, PINR, CBCA, TSHR #### [facility] ([id number]) [address] [place] [address] Urea nitrogen [Mass/Vol] 99 mg/dL High 5-27 [facility] Comment on above: Performed By: #### C MP, 84837-2, 88485-0, 42423-2, 77497-8, 77309-7, 2157-6, 58049-2, PINR, CBCA, TSHR #### [facility] ([id number]) [address] [place] [address] CT BRAIN WO CONTon 3 CT BRAIN WO CONT CT BRAIN WO CONT STUDY: CT HEAD WITHOUT CONTRAST CLINICAL HISTORY: Head trauma, moderate-severe Weakness COMPARISON: None Procedure: Multi-detector CT performed through the brain without IV contrast. The lack of IV contrast limits evaluation for acute infarct, mass, infectious process,or demyelinating disease.Automated exposure control was utilized. Findings: There is no intracranial hemorrhage, extra-axial fluid collection, mass effect, or hydrocephalus. Medrano-white matter differentiation is appropriate. Infarcts and masses may be occult on CT, but grossly no acute infarct identified There is no midline shift. IMPRESSION: * No acute intracranial findings. Consider brain MRI if you suspect occult process. All CT scans at this facility use dose modulation, iterative reconstruction, and/or weight based dosing when appropriate to reduce radiation dose to as low as reasonably achievable. Finalized by Watson Ceja MD on 09/20/2023 1:40 AM Normal [facility] Lactate (P stan) [Moles/Vol]o n 09-20-2023 Lactate [Moles/Vol] 1.5 mmol/L Normal 0.4-2.0 [facility] Comment on above: Performed By: #### C MP, 36702-7, 15025-9, 00276-0, 07287-9, 93678-1, 2157-6, 67824-7, PINR, CBCA, TSHR #### [facility] ([id number]) [address] [place] [address] 00607 LACTATE W/REFLEX 2.2 mmol/L High 0.4-2.0 [facility] Comment on above: Performed By: #### C MP, 59952-4, 54593-1, 15342-5, 83649-1, 24455-9, 2157-6, 04082-2, PINR, CBCA, TSHR #### [facility] ([id number]) [address] [place] [address] 77384 MAGNESIUMon 09-20-2023 Magnesium [Mass/Vol] 2.9 mg/dL High 1.8-2.6 [facility] Comment on above: Performed By: #### C MP, 44728-9, 39304-0, 16232-8, 13349-4, 81733-9, 2157-6, 36233-3, PINR, CBCA, TSHR #### [facility] ([id number]) [address] [place] [address] 88381 Natriuretic peptide B [Mass/ Vol]on 09-20-2023 Natriuretic peptide B (Bld) [Mass/Vol] 555 pg/mL High <100.0 [facility] Comment on above: Performed By: #### C MP, 61953-4, 37212-5, 53309-3, 40696-2, 10621-8, 2157-6, 62918-0, PINR, CBCA, TSHR #### [facility] ([id number]) [address] [place] [address] 54741 PROTIME AND INRon 09-20-2023 INR Coag (PPP) [Relative time] {INR} Critically high 0.8-1.1 [facility] Comment on above: Performed By: #### C MP, 15322-3, 37613-2, 81649-6, 01427-4, 00230-2, 2157-6, 85699-7, PINR, CBCA, TSHR #### [facility] ([id number]) [address] [place] [address] 28537 PT Coag (PPP) [Time] 191.2 s High 9.8-13.2 [facility] Comment on above: Result Comment: NEW REFERENCE RANGE Performed By: #### C ROSALBA, 97927-0, 05362-9, 72328-8, 49983-4, 02715-6, 2157-6, 55345-2, PINR, CBCA, TSHR #### [facility] ([id number]) [address] [place] [address] 07462 Procalcitonin IA [Mass/Vol]o n 09-20-2023 PROCALCITONIN 0.53 ng/mL High <0.05 [facility] Comment on above: Result Comment: NOTE <0.50 ng/mL - Low risk of severe sepsis and/or septic shock. <2.00 ng/mL - Recommend retesting within 6-24 hours. >2.00 ng/mL - High risk of sepsis and/or septic shock. Performed By: #### C MP, 32565-9, 36424-1, 51685-8, 16140-3, 27273-2, 2157-6, 05030-8, PINR, CBCA, TSHR #### [facility] ([id number]) [address] [place] [address] 24509 SARS/FLU A+B/RSV by NAAT/Mol ecularon 09-20-2023 SARS/FLU A+B/RSV by NAAT/Molecular FLU A PCR Negative (qualifier value) FLU B PCR Negative (qualifier value) RSV by PCR Negative (qualifier value) SARS CoV 2 Not detected (qualifier value) NOTE The Xpert Xpress SARS-CoV-2/Flu/RSV Plus test is a rapid, multiplexed real-time RT-PCR test intended for the simultaneous qualitative detection and differentiation of SARS-CoV-2, influenza A, influenza B and respiratory syncytial virus (RSV) viral RNA from individuals suspected of respiratory viral infection consistent with COVID-19 by their healthcare provider. This test has not been validated in asymptomatic patients. The Xpert Xpress SARS-CoV-2 test is intended for use by qualified and trained operators who are performing tests using either [employer] or [employer] systems and is limited to laboratories that meet the CLIA requirements to perform high and moderate complexity tests. The Xpert Xpress SARS-CoV-2/Flu/RSV Plus is only for use under the Food and Drug Administration's Emergency Use Authorization. Results are for the simultaneous detection and differentiation of SARS-CoV-2, influenza A, influenza B and RSV nucleic acids in clinical specimens. SARS-CoV-2, influenza A, influenza B and RSV RNA identified by this test are generally detectable in upper respiratory samples during the acute phase of infection. Positive results are indicative of the presence of the identified virus, but do not rule out bacterial infection or co-infection with other pathogens not detected by this test. Clinical correlation with patient history and other diagnostic information is necessary to determine patient infection status. The agent detected may not be the definite cause of disease. Negative results do not preclude SARS-CoV-2, influenza A, influenza B and RSV infection and should not be used as the sole basis for treatment or other patient management decisions. Negative results must be combined with clinical observations, patient history and epidemiological information. An Invalid result may occur with specimen-associated inhibition unable to be resolved with specimen repeat. Fact Sheet for Healthcare Providers: https://www.fda.gov/media /355240/download Fact Sheet for Patients: https://www.fda.gov/media /484280/download Normal [facility] Comment on above: Performed By: #### C MP, 10637-8, 44096-1, 50067-0, 49222-0, 46488-4, 2157-6, 12695-1, PINR, CBCA, TSHR #### [facility] ([id number]) [address] [place] [address], [place] [address] TROPONIN Ion 09-20-2023 Troponin I.cardiac [Mass/Vol] 0.02 ng/mL Normal 0.00-0.04 [facility] Comment on above: Performed By: #### C ROSALBA, 44262-3, 13074-1, 37953-9, 02355-5, 69867-3, 2157-6, 28401-1, PINR, CBCA, TSHR #### [facility] ([id number]) [address] [place] [address] 89157 TSH WITH REFLEXon 09-20-2023 TSH 3.37 uIU/mL Normal 0.49-4.67 [facility] Comment on above: Performed By: #### C ROSALBA, 88736-1, 71342-8, 73143-1, 73207-2, 33232-1, 2157-6, 23478-6, PINR, CBCA, TSHR #### [facility] ([id number]) [address] [place] [address] 55464 VENOUS BLOOD GASon 3 RONNIE'S TEST Normal [facility] Comment on above: Performed By: #### V BG #### [facility] ([id number]) [address] [place] [address] 16655 BASE,DEFICIT 13.0 MMOL/L High 0.0-2.0 [facility] Comment on above: Performed By: #### Ban BG #### [facility] ([id number]) [address] [place] [address] 21843 Body temperature 98.6 [degF] Normal 37.0 [facility] Comment on above: Performed By: #### V BG #### [facility] ([id number]) [address] [place] [address] 70562 HCO3 (Bld) [Moles/Vol] 14.0 mmol/L Low 20.0-24.0 [facility] Comment on above: Performed By: #### V BG #### [facility] ([id number]) [address] [place] [address] [place] [address] INSP. O2 CONC. 21 % Normal [facility] Comment on above: Performed By: #### V BG #### [facility] ([id number]) [address] [place] [address] 07792 Oxygen saturation in Blood 53.0 % Low >80.0 [facility] Comment on above: Performed By: #### V BG #### [facility] ([id number]) [address] [place] [address] 30907 OXYGEN SOURCE [facility] Comment on above: Performed By: #### V BG #### [facility] ([id number]) [address] [place] [address] 06349 PCO2, VENOUS 37.7 MMHG Normal 35-50 [facility] Comment on above: Performed By: #### V BG #### [facility] ([id number]) [address] [place] [address] [place] [address] PH, VENOUS 7.179 Low 7.320-7.420 [facility] Comment on above: Performed By: #### V BG #### [facility] ([id number]) [address] [place] [address] [place] [address] PO2, VENOUS 35 MMHG Normal 30-50 [facility] Comment on above: Performed By: #### V BG #### [facility] ([id number]) [address] [place] [address] [place] [address] SAMPLE SITE N/A Normal [facility] Comment on above: Performed By: #### V BG #### [facility] ([id number]) [address] [place] [address] [place] [address] SAMPLE TYPE VENOUS Normal [facility] Comment on above: Performed By: #### V BG #### [facility] ([id number]) [address] [place] [address] 52147 XR CHEST 1 VWon 09-20-2023 XR CHEST 1 VW XR CHEST 1 VW Single view chest XR CHEST 1 VW History: weakness Comparison: September 03 Impression: * No consolidation or pleural fluid. No acute findings. Moderate cardiomegaly Finalized by Watson Ceja MD on 09/20/2023 1:42 AM Normal [facility] aPTT Coag (PPP) [Time]on aPTT Coag (Bld) [Time] 88 s High 26-37 [facility] Comment on above: Result Comment: NEW REFERENCE RANGE Performed By: #### C MP, 70177-5, 52938-9, 06937-3, 83256-1, 62292-1, 2157-6, 24854-8, PINR, CBCA, TSHR #### [facility] ([id number]) [address] [place] [address] 36500 Vital Signs Date Time Vital Sign Value Performing Clinician Facility 12-28-2023 23:14-0400 Body temperature 98.4 [degF] Brandon Carrillo MD Work Phone: [facility] 12-28-2023 23:14-0400 Diastolic blood pressure 67 mm[Hg] Brandon Carrillo MD Work Phone: [facility] 12-28-2023 23:14-0400 Heart rate 89 /min Brandon Carrillo MD Work Phone: [facility] 12-28-2023 23:14-0400 Respiratory rate 16 /min Brandon Carrillo MD Work Phone: [facility] 12-28-2023 23:14-0400 SaO2% (BldA) [Mass fraction] 91 % Brandon Carrillo MD Work Phone: [facility] 12-28-2023 23:14-0400 Systolic blood pressure 119 mm[Hg] Brandon Carrillo MD Work Phone: [facility] 12-28-2023 05:30-0400 Body mass index (BMI) [Ratio] 45.15 kg/m2 Brandon Carrillo MD Work Phone: [facility] 12-28-2023 05:30-0400 Body weight 119.3 kg Brandon Carrillo MD Work Phone: [facility] 12-25-2023 23:07-0400 Body height 162.6 cm Brandon Carrillo MD Work Phone: [facility] 12-23-2023 16:41-0400 SaO2% (BldA) [Mass fraction] 100 % [facility] Comment on above: Performed By: #### VBG ####[facility] ([id number])[address] [place] [address] 12-23-2023 14:44-0400 Body temperature 98.6 [degF] Brandon Carrillo MD Work Phone: [facility] 12-23-2023 14:44-0400 SaO2% (BldA) [Mass fraction] 100 % Brandon Carrillo MD Work Phone: [facility] 10-05-2023 14:56-0500 Diastolic blood pressure 65 mm[Hg] Elvi Schreiber MD Work Phone: [facility] 10-05-2023 14:56-0500 Systolic blood pressure 106 mm[Hg] Elvi Schreiber MD Work Phone: [facility] 10-05-2023 12:55-0500 Body temperature 98.01 [degF] Elvi Schreiber MD Work Phone: [facility] 10-05-2023 12:55-0500 Respiratory rate 18 /min Elvi Schreiber MD Work Phone: [facility] 10-05-2023 12:55-0500 SaO2% (BldA) [Mass fraction] 94 % Elvi Schreiber MD Work Phone: [facility] 10-05-2023 09:01-0500 Heart rate 67 /min Elvi Schreiber MD Work Phone: 7(857)846-277252 [place] [address] 10-05-2023 07:08-0500 Body temperature 98.6 [degF] Elvi Schreiber MD Work Phone: 8(868)883-577352 [place] [address] 10-05-2023 07:08-0500 SaO2% (BldA) [Mass fraction] 98 % Elvi Schreiber MD Work Phone: 2(730)931-300352 [place] [address] 10-05-2023 06:00-0500 Body mass index (BMI) [Ratio] 41.64 kg/m2 Elvi Schreiber MD Work Phone: 9(629)464-549852 [place] [address] 10-05-2023 06:00-0500 Body weight 113.5 kg Elvi Schreiber MD Work Phone: 6(595)755-024252 [place] [address] 09-27-2023 09:40-0500 Body temperature 98.6 [degF] Elvi Schreiber MD Work Phone: 5(149)786-412952 [place] [address] 09-27-2023 09:40-0500 SaO2% (BldA) [Mass fraction] 95.0 % Elvi Schreiber MD Work Phone: 6(431)028-483352 [place] [address] 09-27-2023 09:40-0500 SaO2% (BldA) [Mass fraction] 100 % Elvi Schreiber MD Work Phone: 8(624)964-281052 [place] [address] 09-23-2023 05:38-0500 Body temperature 98.6 [degF] Elvi Schreiber MD Work Phone: 8(345)995-412952 [place] [address] 09-23-2023 05:38-0500 SaO2% (BldA) [Mass fraction] 99.0 % Elvi Schreiber MD Work Phone: 1(857)763-449352 [place] [address] 09-23-2023 05:38-0500 SaO2% (BldA) [Mass fraction] 100 % Elvi Schreiber MD Work Phone: 3(152)861-579452 [place] [address] 09-22-2023 12:39-0500 Body temperature 98.6 [degF] Elvi Schreiber MD Work Phone: [facility] 09-22-2023 12:39-0500 SaO2% (BldA) [Mass fraction] 95.0 % Elvi Schreiber MD Work Phone: [facility] 09-22-2023 12:39-0500 SaO2% (BldA) [Mass fraction] 88 % Elvi Schreiber MD Work Phone: [facility] 09-20-2023 15:10-0500 Body height 165.1 cm Elvi Schreiber MD Work Phone: [facility] Encounters Encounter Date Encounter Type Care Provider Facility Start: 12-31-2023 End: 12-31-2023 ambulatory BRANDON LORENA [facility] Start: 12-22-2023 End: 12-29-2023 Evaluation and management of inpatient CAROL Akua FRIDA [facility] Start: 12-22-2023 End: 12-29-2023 Emergency department patient visit SALBADOR DUTTON [facility] Start: 12-22-2023 End: 12-29-2023 Evaluation and management of inpatient Justyn A Melita HERNANDEZ Work Phone: [facility] - NURYS 5E Acute Start: 12-22-2023 End: 12-22-2023 ambulatory MITRA CROWELL [facility] Start: 12-18-2023 Telephone encounter Luke Daigle CMA, PHN [facility] Comment on above: Hospital Follow-up ( 2-4 week F/U ) Start: 12-16-2023 Orders Only Mitra Crowell MD [facility] Comment on above: Rectal cancer (CMS-H CC) (Primary Dx) Start: 12-11-2023 Orders Only Mitra Crowell MD [facility] Phone[facility] Start: 12-10-2023 Telephone encounter Shira Mccarthy [facility] Comment on above: Clearance Start: 12-09-2023 Telephone encounter Linda Agarwal CARDIAC CATH TECHNICIAN-CLASS A LINEMAN Work Phone: [facility] Start: 12-04-2023 End: 12-04-2023 Evaluation and management of inpatient CARIN ROBERTO [facility] Start: 11-30-2023 End: 12-04-2023 Evaluation and management of inpatient [facility] Start: 11-30-2023 End: 12-04-2023 Evaluation and management of inpatient [facility] Start: 11-29-2023 End: 12-04-2023 Evaluation and management of inpatient [facility] ELISEO [facility] Start: 11-27-2023 Telephone encounter Cesia Monzon [facility] Start: 11-26-2023 End: 12-04-2023 Evaluation and management of inpatient KELLI POLLARD [facility] Start: 11-25-2023 Telephone encounter Francie [facility] Comment on above: Hospital Follow-up Start: 11-23-2023 End: 12-04-2023 Evaluation and management of inpatient [facility] Start: 11-21-2023 End: 12-04-2023 Evaluation and management of inpatient JAIME DAVIS [facility] Start: 11-20-2023 End: 12-04-2023 Evaluation and management of inpatient SALBADOR HOWELL [facility] Start: 11-18-2023 End: 12-04-2023 Evaluation and management of inpatient HALEY [facility] Start: 11-18-2023 End: 12-04-2023 Evaluation and management of inpatient COLLEEN CAMPBELL [facility] Start: 11-17-2023 End: 12-04-2023 Evaluation and management of inpatient [facility] Start: 11-16-2023 End: 12-04-2023 Evaluation and management of inpatient DILLON U [facility] Start: 11-13-2023 Telephone encounter Luke WARREN [facility] Comment on above: Hospital Follow-up ( 2-4 week follow up ) Start: 11-13-2023 End: 12-04-2023 Evaluation and management of inpatient TRISTAN TODD [facility] Start: 11-12-2023 End: 12-04-2023 Evaluation and management of inpatient [facility] Start: 11-11-2023 End: 12-04-2023 Evaluation and management of inpatient REGINA BEAUCHAMP [facility] Start: 11-10-2023 End: 12-04-2023 Evaluation and management of inpatient [facility] Start: 11-09-2023 End: 12-04-2023 Evaluation and management of inpatient [facility] Start: 11-08-2023 End: 12-04-2023 Evaluation and management of inpatient [facility] Start: 11-07-2023 End: 11-14-2023 Evaluation and management of inpatient [facility] Start: 11-07-2023 End: 12-04-2023 Evaluation and management of inpatient [facility] Start: 11-07-2023 End: 12-04-2023 Evaluation and management of inpatient FAVIO LINTON [facility] Start: 11-06-2023 Telephone encounter Luke Daigle CMA [facility] Start: 11-06-2023 End: 12-04-2023 Evaluation and management of inpatient [facility] Start: 11-05-2023 End: 12-04-2023 Evaluation and management of inpatient NATASHA ROBERTS [facility] Start: 11-03-2023 Telephone encounter Mary Kay VALENZUELA Work Phone: [facility] Start: 10-31-2023 End: 12-04-2023 Evaluation and management of inpatient CELE GUERRERO [facility] Start: 10-31-2023 End: 12-04-2023 Evaluation and management of inpatient HARMONY CHIN [facility] Start: 10-31-2023 End: 12-04-2023 Evaluation and management of inpatient GREER LEGGETT [facility] Start: 10-30-2023 End: 12-04-2023 Evaluation and management of inpatient LIV Mcbride [facility] Start: 10-30-2023 End: 12-04-2023 Evaluation and management of inpatient LIV D [facility] Start: 10-30-2023 End: 12-04-2023 Evaluation and management of inpatient ULISSES SILVER [facility] Start: 10-27-2023 End: 12-04-2023 Evaluation and management of inpatient JOJO [facility] Start: 10-27-2023 End: 12-04-2023 Evaluation and management of inpatient [facility] Akua [facility] Start: 10-25-2023 End: 12-04-2023 Evaluation and management of inpatient MITRA ChinFay CROWELL [facility] Start: 10-24-2023 End: 12-04-2023 Evaluation and management of inpatient [facility] Akua CLAROSSAMMIUC [facility] Start: 10-23-2023 End: 12-04-2023 [facility] Start: 10-23-2023 End: 12-04-2023 Evaluation and management of inpatient AURELIO Emmanuel PETE [facility] Start: 10-23-2023 End: 12-04-2023 Evaluation and management of inpatient JOJO [facility] Start: 10-22-2023 End: 10-22-2023 Evaluation and management of inpatient KOMAL TONG [facility] Start: 10-22-2023 End: 10-22-2023 Evaluation and management of inpatient TOMY GUZMÁN [facility] Start: 10-21-2023 End: 10-21-2023 ambulatory EMILIANO URIBE [facility] Start: 10-21-2023 End: 10-25-2023 Evaluation and management of inpatient ANDREAS VARELA [facility] Start: 10-21-2023 End: 10-22-2023 Evaluation and management of inpatient [facility] Start: 10-20-2023 End: 12-04-2023 Evaluation and management of inpatient RONNIE FITZGERALD [facility] Start: 10-20-2023 End: 10-21-2023 Evaluation and management of inpatient [facility] Start: 10-20-2023 End: 12-04-2023 Evaluation and management of inpatient YENY MIR [facility] Start: 10-19-2023 End: 12-04-2023 Evaluation and management of inpatient TANNER HARRIS [facility] Start: 10-19-2023 End: 12-04-2023 Evaluation and management of inpatient TANNER HARRIS [facility] Start: 10-19-2023 End: 10-20-2023 Evaluation and management of inpatient COLIN RYEES [facility] Start: 10-17-2023 End: 10-20-2023 Emergency department patient visit JUAN LOPEZ [facility] Start: 10-17-2023 End: 10-19-2023 Evaluation and management of inpatient CAROL AKINS [facility] Start: 10-14-2023 Telephone encounter Yeny Escobar [facility] Start: 10-07-2023 End: 10-07-2023 ambulatory Giuseppe Mccarthy [facility] Start: 10-07-2023 Follow-up encounter [facility] Work Phone: [facility] Comment on above: Typical atrial flutt er (CMS-HCC) (Primary Dx) Start: 10-05-2023 End: 10-06-2023 Evaluation and management of inpatient LILIA NEWBYSARITHA [facility] Start: 10-04-2023 Documentation procedure [facility] Work Phone: [facility] Start: 09-30-2023 End: 10-06-2023 Evaluation and management of inpatient [facility] Start: 09-29-2023 End: 10-06-2023 Evaluation and management of inpatient [facility] Start: 09-28-2023 End: 10-06-2023 Evaluation and management of inpatient [facility] Start: 09-27-2023 End: 10-06-2023 Evaluation and management of inpatient [facility] Start: 09-27-2023 End: 10-06-2023 Evaluation and management of inpatient [facility] Start: 09-22-2023 End: 10-06-2023 Evaluation and management of inpatient GREER Estrada [facility] Start: 09-21-2023 End: 10-06-2023 Evaluation and management of inpatient DAMIÁN Fatima [facility] Start: 09-20-2023 End: 10-06-2023 Evaluation and management of inpatient DEDE [facility] Start: 09-20-2023 End: 10-05-2023 Evaluation and management of inpatient TANNER HARRIS [facility] Start: 09-20-2023 End: 10-05-2023 Evaluation and management of inpatient Tanner Harris MD Work Phone: [facility] Start: 09-20-2023 End: 09-21-2023 Emergency department patient visit PATRICK [facility] Start: 09-20-2023 End: 09-20-2023 Emergency department patient visit CAROL AKINS [facility] Procedures Date Procedure Procedure Detail Performing Clinician Start: 12-28-2023 End: 12-28-2023 Comprehensive metabolic panel Lexx Medina MD Work Phone: Start: 12-27-2023 Blood count hematocrit Jose Ferguson MD Work Phone: Start: 12-27-2023 Gluc bld gluc mntr d ev cleared fda spec home use Zuri Herrera MD Work Phone: Start: 12-27-2023 Mri pelvis w/o & w/c ontrast material Brandon Carrillo MD Work Phone: Start: 12-27-2023 Blood count hematocrit Jose Ferguson MD Work Phone: Start: 12-27-2023 Gluc bld gluc mntr d ev cleared fda spec home use Zuri Herrera MD Work Phone: Start: 12-27-2023 Gluc bld gluc mntr d ev cleared fda spec home use Zuri Herrera MD Work Phone: Start: 12-27-2023 Comprehensive metabo lic panel Lexx Medina MD Work Phone: Start: 12-26-2023 Blood count hematocrit Jose Ferguson MD Work Phone: Start: 12-26-2023 Gluc bld gluc mntr d ev cleared fda spec home use Zuri Herrera MD Work Phone: Start: 12-26-2023 Assay of lactate Brandon Carrillo MD Work Phone: Start: 12-26-2023 Drug screen quantita tive vancomycin Umang Antonio MD Work Phone: Start: 12-26-2023 Gluc bld gluc mntr d ev cleared fda spec home use Zuri Herrera MD Work Phone: Start: 12-26-2023 Calcium ionized Brandon fishman MD Work Phone: Start: 12-26-2023 Gluc bld gluc mntr d ev cleared fda spec home use Zuri Herrera MD Work Phone: Start: 12-26-2023 End: 12-26-2023 Comprehensive metabolic panel Lexx Medina MD Work Phone: Start: 12-26-2023 End: 12-26-2023 TRANSFUSE RED BLOOD CELLS Prashant Patterson A-C Work Phone: Start: 12-26-2023 Antibody screen Brandon fishman MD Work Phone: Start: 12-26-2023 Blood count hematocrit Prashant Fatima Tita PA-C Work Phone: Start: 12-26-2023 Blood typing serologic abo Prashant Fatima Tita PA-C Work Phone: Start: 12-25-2023 Gluc bld gluc mntr d ev cleared fda spec home use Zuri Herrera MD Work Phone: Start: 12-25-2023 Gluc bld gluc mntr d ev cleared fda spec home use Zuri Herrera MD Work Phone: Start: 12-25-2023 ENTEROSTOMAL THERAPY EVAL AND TREAT Mandi Flores CARDIAC CATH TECHNICIAN-CLASS A [employer] Work Phone: Start: 12-25-2023 Blood count hematocrit Jose Ferguson MD Work Phone: Start: 12-25-2023 HC INFECTIOUS DISEAS E RESP, DNA/RNA, 22 TARGETS INCLUDING SARSCOV2 Brandon Carrillo MD Work Phone: Start: 12-25-2023 Gluc bld gluc mntr d ev cleared fda spec home use Zuri Herrera MD Work Phone: Start: 12-25-2023 End: 12-25-2023 Calcium ionized Lexx Medina MD Work Phone: Start: 12-25-2023 End: 12-25-2023 Comprehensive metabolic panel Lexx Medina MD Work Phone: Start: 12-25-2023 Calcium ionized Henrique Diop MD Work Phone: Start: 12-24-2023 Assay of troponin quantitative Lexx Medina MD Work Phone: Start: 12-24-2023 Basic metabolic pane l calcium total Umang Antonio MD Work Phone: Start: 12-24-2023 Ecg routine ecg w/le ast 12 lds trcg only w/o i&r Lexx Medina MD Work Phone: Start: 12-24-2023 Calcium ionized Lexx Medina MD Work Phone: Start: 12-24-2023 Comprehensive metabo lic panel Lexx Medina MD Work Phone: Start: 12-23-2023 Blood occult peroxid ase actv qual feces 1-3 spec Umang Antonio MD Work Phone: Start: 12-23-2023 Gluc bld gluc mntr d ev cleared fda spec home use Zuri Herrera MD Work Phone: Start: 12-23-2023 End: 12-23-2023 Gluc bld gluc mntr dev cleared fda spec home use Zuri Herrera MD Work Phone: Start: 12-23-2023 Blood gases any comb ination ph pco2 po2 co2 hco3 Zuri Herrera MD Work Phone: Start: 12-23-2023 End: 12-23-2023 Glucose quantitative blood xcpt reagent strip Lexx Medina MD Work Phone: Start: 12-23-2023 Ecg routine ecg w/le ast 12 lds trcg only w/o i&r Lexx Medina MD Work Phone: Start: 12-23-2023 Radiologic exam ches t single view Lexx Medina MD Work Phone: Start: 12-23-2023 Gluc bld gluc mntr d ev cleared fda spec home use Zuri Herrera MD Work Phone: Start: 12-23-2023 Antibody screen Brandon fishman MD Work Phone: Start: 12-23-2023 Dup-scan xtr veins c omplete bilateral study Maegan Sinha MD Work Phone: Start: 12-23-2023 End: 12-23-2023 Gluc bld gluc mntr dev cleared fda spec home use Zuri Herrear MD Work Phone: Start: 12-23-2023 Blood typing serologic abo Lexx Medina MD Work Phone: Start: 12-23-2023 Ecg routine ecg w/le ast 12 lds trcg only w/o i&r Henrique Diop MD Work Phone: Start: 12-23-2023 End: 12-23-2023 Comprehensive metabolic panel Lexx Medina MD Work Phone: Start: 12-22-2023 Fibrin dgradj produc ts d-dimer quantitative Lexx Medina MD Work Phone: Start: 12-22-2023 End: 12-22-2023 Hemoglobin glycosylated a1c Lexx Medina MD Work Phone: Start: 12-22-2023 Us abdominal real ti me w/image limited Lexx Medina MD Work Phone: Start: 12-22-2023 PULSE OXIMETRY, SPOT Rocio maya Medina MD Work Phone: Start: 12-22-2023 Ct thorax w/contrast material Salbador Henrico DO Work Phone: Start: 12-22-2023 Ct abdomen & pelvis w/contrast material Salbador Henrico DO Work Phone: Start: 12-22-2023 Gluc bld gluc mntr d ev cleared fda spec home use Justyn Akua Burch DO Work Phone: Start: 12-22-2023 Radiologic exam ches t single view Salbador Henrico DO Work Phone: Start: 12-22-2023 Urnls dip stick/tabl et rgnt auto w/o microscopy Justyn Burch DO Work Phone: Start: 12-22-2023 Culture bacterial quanttative colony count urine Salbador Nato DO Work Phone: Start: 12-22-2023 ER EXTRA URINE Salbador Bl edsoe DO Work Phone: Start: 12-22-2023 End: 12-22-2023 Basic metabolic panel calcium total Salbador Nato DO Work Phone: Start: 12-22-2023 Hepatic function panel Salbador Henrico DO Work Phone: Start: 12-22-2023 Ecg routine ecg w/le ast 12 lds trcg only w/o i&r Justyn Burch DO Work Phone: Start: 12-22-2023 End: 12-22-2023 Culture bacterial blood aerobic w/id isolates Salbador Dutton DO Work Phone: Start: 10-18-2023 Microalbumin [Mass/v olume] in Urine by Test strip Luke Daigle [facility] COU[facility]ER Start: 10-05-2023 Gluc bld gluc mntr d ev cleared fda spec home use Tanner Harris MD Work Phone: Start: 10-05-2023 Blood gases any comb ination ph pco2 po2 co2 hco3 Tanner Harris MD Work Phone: Start: 10-05-2023 Radiologic exam ches t single view Lilia Cox MD Work Phone: Start: 10-05-2023 End: 10-05-2023 Basic metabolic panel calcium total Elvi Schreiber MD Work Phone: Start: 10-04-2023 Gluc bld gluc mntr d ev cleared fda spec home use Tanner Harris MD Work Phone: Start: 10-04-2023 Gluc bld gluc mntr d ev cleared fda spec home use Tanner Harris MD Work Phone: Start: 10-04-2023 Gluc bld gluc mntr d ev cleared fda spec home use Tanner Harris MD Work Phone: Start: 10-04-2023 Gluc bld gluc mntr d ev cleared fda spec home use Tanner Harris MD Work Phone: Start: 10-04-2023 Basic metabolic pane l calcium total Rabirdget Schreiber MD Work Phone: Start: 10-03-2023 Gluc bld gluc mntr d ev cleared fda spec home use Tanner Harris MD Work Phone: Start: 10-03-2023 Gluc bld gluc mntr d ev cleared fda spec home use Tanner Harris MD Work Phone: Start: 10-03-2023 Potassium serum plas ma/whole blood Elvi Schreiber MD Work Phone: Start: 10-03-2023 Gluc bld gluc mntr d ev cleared fda spec home use Tanner Harris MD Work Phone: Start: 10-03-2023 End: 10-03-2023 Basic metabolic panel calcium total Luly Gallegos PA-C Work Phone: Start: 10-02-2023 End: 10-02-2023 Comprehensive metabolic panel Jaime Tellopkins CARDIAC CATH TECHNICIAN-CLASS A [employer] Work Phone: Start: 10-02-2023 Drug screen quantita tive digoxin total Greer Leggett PA-C Work Phone: Start: 10-02-2023 Heparin assay Elvi reed MD Work Phone: Start: 10-01-2023 Gluc bld gluc mntr d ev cleared fda spec home use Tanner Harris MD Work Phone: Start: 10-01-2023 End: 10-01-2023 Gluc bld gluc mntr dev cleared fda spec home use Tanner Harris MD Work Phone: Start: 10-01-2023 Gluc bld gluc mntr d ev cleared fda spec home use Tanner Harris MD Work Phone: Start: 10-01-2023 Gluc bld gluc mntr d ev cleared fda spec home use Tanner Harris MD Work Phone: Start: 10-01-2023 Comprehensive metabo lic panel Jaime Tellopkins CARDIAC CATH TECHNICIAN-CLASS [employer] Work Phone: Start: 09-30-2023 Gluc bld gluc mntr d ev cleared fda spec home use Tanner Harris MD Work Phone: Start: 09-30-2023 End: 09-30-2023 Potassium serum plasma/whole blood Salbador Howell CARDIAC CATH TECHNICIAN-CLASS [employer] Work Phone: Start: 09-30-2023 Gluc bld gluc mntr d ev cleared fda spec home use Tanner Harris MD Work Phone: Start: 09-30-2023 Gluc bld gluc mntr d ev cleared fda spec home use Tanner Harris MD Work Phone: Start: 09-30-2023 Radiologic exam ches t single view Jaime Tellopkins CARDIAC CATH TECHNICIAN-[employer] Work Phone: Start: 09-30-2023 Comprehensive metabo lic panel Jaime Tellopkins CARDIAC CATH TECHNICIAN-CLASS [employer] Work Phone: Start: 09-29-2023 Gluc bld gluc mntr d ev cleared fda spec home use Tanner Harris MD Work Phone: Start: 09-29-2023 Gluc bld gluc mntr d ev cleared fda spec home use Tanner Harris MD Work Phone: Start: 09-29-2023 Gluc bld gluc mntr d ev cleared fda spec home use Tanner Harris MD Work Phone: Start: 09-29-2023 Assay of magnesium Kalyan Howell CARDIAC CATH TECHNICIAN-CLASS [employer] Work Phone: Start: 09-29-2023 Gluc bld gluc mntr d ev cleared fda spec home use Tanner Harris MD Work Phone: Start: 09-29-2023 Radiologic exam ches t single view Jaime Tellopkins CARDIAC CATH TECHNICIAN-[employer] Work Phone: Start: 09-29-2023 Comprehensive metabo lic panel Jaime Tellopkins CARDIAC CATH TECHNICIAN-CLASS [employer] Work Phone: Start: 09-28-2023 Gluc bld gluc mntr d ev cleared fda spec home use Tanner Harris MD Work Phone: Start: 09-28-2023 Gluc bld gluc mntr d ev cleared fda spec home use Tanner Harris MD Work Phone: Start: 09-28-2023 Gluc bld gluc mntr d ev cleared fda spec home use Tanner Harris MD Work Phone: Start: 09-28-2023 Gluc bld gluc mntr d ev cleared fda spec home use Tanner Harris MD Work Phone: Start: 09-28-2023 Radiologic exam ches t single view Jaime Davis CARDIAC CATH TECHNICIAN-CLASS [employer] Work Phone: Start: 09-28-2023 Blood count complete auto&auto difrntl wbc Jaime Davis CARDIAC CATH TECHNICIAN-CLASS [employer] Work Phone: Start: 09-28-2023 Comprehensive metabo lic panel Jaime Davis CARDIAC CATH TECHNICIAN-CLASS [employer] Work Phone: Start: 09-27-2023 Calcium ionized Brigida HOFF Work Phone: Start: 09-27-2023 Gluc bld gluc mntr d ev cleared fda spec home use Tanner Harris MD Work Phone: Start: 09-27-2023 Gluc bld gluc mntr d ev cleared fda spec home use Tanner Harris MD Work Phone: Start: 09-27-2023 VENTILATION Nancy cotton MD Work Phone: Start: 09-27-2023 Ct head/brain w/o co ntrast material Brigida HOFF Work Phone: Start: 09-27-2023 End: 09-27-2023 Calcium ionized Brigida HOFF Work Phone: Start: 09-27-2023 Radiologic exam ches t single view Brigida HOFF Work Phone: Start: 09-27-2023 Blood gases any comb ination ph pco2 po2 co2 hco3 Tanner Harris MD Work Phone: Start: 09-27-2023 Gluc bld gluc mntr d ev cleared fda spec home use Tanner Harris MD Work Phone: Start: 09-27-2023 Culture bacterial bl ood aerobic w/id isolates Danie Reid CARDIAC CATH TECHNICIAN-CLASS [employer] Work Phone: Start: 09-27-2023 End: 09-27-2023 Culture bacterial quanttative colony count urine Danie Reid CARDIAC CATH TECHNICIAN-CLASS A [employer] Work Phone: Start: 09-27-2023 Comprehensive metabo lic panel Greer Leggett PA-C Work Phone: Start: 09-26-2023 Antibody identificat ion platelet antibodies Keron Stahl CARDIAC CATH TECHNICIAN-CLASS A [employer] Work Phone: Start: 09-26-2023 End: 09-26-2023 Basic metabolic panel calcium total Greer Estrada MC10 Work Phone: Start: 09-25-2023 Gluc bld gluc mntr d ev cleared fda spec home use Tanner Harris MD Work Phone: Start: 09-25-2023 Gluc bld gluc mntr d ev cleared fda spec home use Tanner Harris MD Work Phone: Start: 09-25-2023 Gluc bld gluc mntr d ev cleared fda spec home use Tanner Harris MD Work Phone: Start: 09-25-2023 Comprehensive metabo lic panel Greer S MC10 Work Phone: Start: 09-24-2023 Gluc bld gluc mntr d ev cleared fda spec home use Tanner Harris MD Work Phone: Start: 09-24-2023 Gluc bld gluc mntr d ev cleared fda spec home use Tanner Harris MD Work Phone: Start: 09-24-2023 Gluc bld gluc mntr d ev cleared fda spec home use Tanner Harris MD Work Phone: Start: 09-24-2023 [id number] PANEL INTERPRETATION Keron Stahl CARDIAC CATH TECHNICIAN-CLASS [employer] Work Phone: Start: 09-24-2023 Cyanocobalamin vitamin b-12 Keron Gtzs CARDIAC CATH TECHNICIAN-CLASS A [employer] Work Phone: Start: 09-24-2023 Gluc bld gluc mntr d ev cleared fda spec home use Tanner Harris MD Work Phone: Start: 09-24-2023 CLINICAL PATHOLOGY B LOOD SMEAR REVIEW Samanta Wright MD Work Phone: Start: 09-24-2023 Gluc bld gluc mntr d ev cleared fda spec home use Tanner Harris MD Work Phone: Start: 09-24-2023 Comprehensive metabo lic panel Marielena Arias CARDIAC CATH TECHNICIAN-CLASS [employer] Work Phone: Start: 09-23-2023 Gluc bld gluc mntr d ev cleared fda spec home use Tanner Harris MD Work Phone: Start: 09-23-2023 Culture bacterial quanttative colony count urine Luly Marcial CARDIAC CATH TECHNICIAN-CLASS A [employer] Work Phone: Start: 09-23-2023 End: 09-23-2023 Gluc bld gluc mntr dev cleared fda spec home use Tanner Harris MD Work Phone: Start: 09-23-2023 Gluc bld gluc mntr d ev cleared fda spec home use Tanner Harris MD Work Phone: Start: 09-23-2023 Gluc bld gluc mntr d ev cleared fda spec home use Tanner Harris MD Work Phone: Start: 09-23-2023 Blood gases any comb ination ph pco2 po2 co2 hco3 Tanner Harris MD Work Phone: Start: 09-23-2023 VENTILATION Damián Segura i, MD Work Phone: Start: 09-23-2023 Comprehensive metabo lic panel Marielena M Jessejohnny CARDIAC CATH TECHNICIAN-CLASS [employer] Work Phone: Start: 09-23-2023 VENTILATION Damián Segura i, MD Work Phone: Start: 09-22-2023 Gluc bld gluc mntr d ev cleared fda spec home use Tanner Harris MD Work Phone: Start: 09-22-2023 VENTILATION Damián Segura i, MD Work Phone: Start: 09-22-2023 Gluc bld gluc mntr d ev cleared fda spec home use Tanner Harris MD Work Phone: Start: 09-22-2023 Radiologic exam ches t single view Greer Leggett PA-C Work Phone: Start: 12-24-2023 Calcium ionized Tanner Harris MD Work Phone: Start: 09-22-2023 End: 09-22-2023 Calcium ionized Salbador Monika CARDIAC CATH TECHNICIAN-CLASS [employer] Work Phone: Start: 09-22-2023 REPEATED ABORH Salbador Briones hroeder CARDIAC CATH TECHNICIAN-CLASS A [employer] Work Phone: Start: 09-22-2023 Basic metabolic pane l calcium total Salbador Howell CARDIAC CATH TECHNICIAN-CLASS A [employer] Work Phone: Start: 09-22-2023 End: 09-22-2023 Electrolyte panel Israel Rivera MD Work Phone: Start: 09-21-2023 Gluc bld gluc mntr d ev cleared fda spec home use Tanner Harris MD Work Phone: Start: 09-21-2023 Electrolyte panel Jessica Rivera MD Work Phone: Start: 09-21-2023 Electrolyte panel Jessica Rivera MD Work Phone: Start: 09-21-2023 Hepatitis b surf ant ibody hbsab Vidhit Miguel DO Work Phone: Start: 09-21-2023 HEMODIALYSIS INPATIENT Vidhit Miguel DO Work Phone: Start: 09-21-2023 Gluc bld gluc mntr d ev cleared fda spec home use Tanner Harris MD Work Phone: Start: 09-21-2023 Insj non-tunneled ce ntral venous cath age 7 yr/> Shiraz Delgado CARDIAC CATH TECHNICIAN-CLASS [employer] Work Phone: Start: 09-21-2023 Radiologic exam ches t single view Damián Eng MD Work Phone: Start: 09-21-2023 Electrolyte panel Jessica Rivera MD Work Phone: Start: 09-21-2023 Gluc bld gluc mntr d ev cleared fda spec home use Tanner Harris MD Work Phone: Start: 09-21-2023 Basic metabolic pane l calcium total Salbador Howell CARDIAC CATH TECHNICIAN-CLASS [employer] Work Phone: Start: 09-21-2023 Electrolyte panel Jessica Rivear MD Work Phone: Start: 09-20-2023 Gluc bld gluc mntr d ev cleared fda spec home use Tanner Harris MD Work Phone: Start: 09-20-2023 Electrolyte panel Jessica Rivera MD Work Phone: Start: 09-20-2023 Urnls dip stick/tabl et rgnt auto w/o microscopy Vidhit Miguel DO Work Phone: Start: 09-20-2023 Us retroperitoneal r eal time w/image complete Vidhit Miguel DO Work Phone: Start: 09-20-2023 Gluc bld gluc mntr d ev cleared fda spec home use Tanner Harris MD Work Phone: Start: 09-20-2023 HC ANTINEUTROPHIL CYTOPLASMIC ANTB SCREEN EA ANTB Vidhit Miguel DO Work Phone: Start: 09-20-2023 Antinuclear antibodies terrance Vidhit Miguel DO Work Phone: Start: 09-20-2023 End: 09-20-2023 Electrolyte panel Vidhit Miguel DO Work Phone: Start: 09-20-2023 HC IMMUNOGLOBULIN LI GHT CHAINS FREE EACH Vidhit Miguel DO Work Phone: Start: 09-20-2023 End: 09-20-2023 Basic metabolic panel calcium total Salbador Howell CARDIAC CATH TECHNICIAN-[employer] Work Phone: Start: 09-20-2023 Blood typing serologic abo Salbador Howell CARDIAC CATH TECHNICIAN-[employer] Work Phone: Start: 09-20-2023 REPEATED ABORH Salbador Sc hroeder CARDIAC CATH TECHNICIAN-CLASS [employer] Work Phone: Start: 09-20-2023 End: 09-20-2023 Gluc bld gluc mntr dev cleared fda spec home use Tanner Harris MD Work Phone: Start: 09-20-2023 Adult depression scr eening assessment [employer] [facility] Work Phone: Start: 09-20-2023 CLINICAL PATHOLOGY Vidh kelsey Rivera DO Work Phone: Plan of Treatment Date Care Activity Detail Author Start: 12-23-2024 Adult BMI Screening Adult BMI Screening [facility] Start: 12-21-2024 Tobacco Screening Tobacco Screening [facility] Start: 12-02-2024 Adult BMI Screening Adult BMI Screening [facility] Start: 11-27-2024 Tobacco Screening Tobacco Screening [facility] Start: 11-26-2024 Adult BMI Screening Adult BMI Screening [facility] Start: 11-23-2024 Adult BMI Follow Up Plan Adult BMI Follow Up Plan [facility] Start: 11-13-2024 Adult BMI Screening Adult BMI Screening [facility] Start: 11-06-2024 Adult BMI Screening Adult BMI Screening [facility] Start: 11-01-2024 Adult BMI Follow Up Plan Adult BMI Follow Up Plan [facility] Start: 10-23-2024 Tobacco Screening Tobacco Screening [facility] Start: 10-19-2024 Adult BMI Follow Up Plan Adult BMI Follow Up Plan [facility] Start: 10-18-2024 Urine screening for protein Urine Microalbumin [facility] Start: 10-05-2024 Adult BMI Screening Adult BMI Screening [facility] Start: 10-03-2024 Adult BMI Screening Adult BMI Screening [facility] Start: 09-20-2024 Depression Screening Depression Screening [facility] Start: 09-20-2024 Tobacco Screening Tobacco Screening [facility] Start: 01-31-2024 End: 01-31-2024 ambulatory Jasmin Bojorquez [facility] Start: 01-31-2024 End: 01-31-2024 Patient encounter procedure 01/31/2024 10:30 AM EDT Office Visit Jasmin Bojorquez [facility] [address] [place] [id number] Pablo Barnes MD [address] [place] [address] Jasmin Bojorquez [facility] Start: 01-10-2024 End: 01-10-2024 ambulatory [facility] Start: 01-10-2024 End: 01-10-2024 Patient encounter procedure 01/10/2024 11:30 AM EDT Office Visit [facility] [address] [facility] [address] [place] [id number] Mitra Crowell MD [address] [facility] [place] [address] [facility] Start: 12-20-2023 End: 12-20-2023 Patient encounter procedure 12/20/2023 2:00 PM EDT Appointment [facility] [address] [place] [id number] [facility] Start: 12-16-2023 End: 12-15-2024 MR Pelvis WO and W contrast IV MR pelvis with and without contrast Imaging STAT Rectal cancer ([facility]) Expected: 12/16/2023, Expires: 12/15/2024 [facility] Work Phone: Comment on above: Expected: 12/16/2023, Expires: Start: 11-29-2023 End: 11-29-2023 ambulatory Jasmin Bojorquez [facility] Start: 11-29-2023 End: 11-29-2023 Patient encounter procedure 11/29/2023 2:30 PM EST Office Visit Jasmin Bojorquez [facility] [address] [place] [address] Pablo Barnes MD [address] [place] [address] Jasmin Bojorquez [facility] Start: 11-28-2023 End: 11-28-2023 EXAM UNDER ANESTHESIA EXAM UNDER ANESTHESIA RECTAL MASS 11/28/2023 1:00 PM EST [facility] [employer] [facility] Start: 11-28-2023 End: 11-28-2023 Sigmoidoscopy flx dx w/collj spec br/wa if pfrmd FLEXIBLE SIGMOIDOSCOPY RECTAL MASS 11/28/2023 1:00 PM EST [facility] Start: 10-15-2023 End: 10-15-2023 ambulatory [facility] Start: 10-15-2023 End: 10-15-2023 Patient encounter procedure 10/15/2023 10:15 AM EST Office Visit [facility] [address] [place] [id number] Aldo Dudley MD [address] [place] [address] [facility] Start: 10-11-2023 End: 10-04-2024 Basic metabolic 2000 panel - Serum or Plasma [facility] Start: 05-31-2023 COVID-19 Vaccine () COVID-19 Vaccine ( season) [facility] Start: 05-31-2023 Influenza vaccination Influenza Vaccine [facility] Start: 2022 Fall Risk Screening Fall Risk Screening [facility] Start: 03-23-2021 COVID-19 Vaccine (3 - Pfizer risk series) COVID-19 Vaccine (3 - Pfizer risk series) [facility] Start: 2007 Administration of varicella zoster vaccine Zoster (Shingles) Vaccine (1 of 2) [facility] Start: 1976 Administration of varicella zoster vaccine Zoster (Shingles) Vaccine (1 of 2) [facility] Start: 1976 DTaP,Tdap and Td Vaccines (1 - Tdap) DTaP,Tdap and Td Vaccines (1 - Tdap) [facility] Start: 1975 Adult BMI Follow Up Plan Adult BMI Follow Up Plan [facility] [facility] Start: 1975 Diabetic foot examination Diabetic Foot Exam [facility] Start: 1957 Glaucoma screening Diabetic Ophthalmology Exam [facility] Start: 1957 Medicare Annual Wellness Visit Medicare Annual Wellness Visit [facility] Start: 1957 Tobacco Counseling Tobacco Counseling [facility] Start: 1957 Urine screening for protein Urine Microalbumin [facility] End: 10-06-2023 Basic metabolic 2000 panel - Serum or Plasma [facility] Bedside Glucose *Emerson ce/Obtain serum glucose if >500(>600 [facility]) per glucometer. [facility] Bedside Glucose *Emerson ce/Obtain serum glucose if >500(>600 [facility]) per glucometer. [facility] End: 10-06-2023 CBC W Auto Differential panel - Blood [facility] CBC W Auto Different ial panel - Blood [facility] Comprehensive metabo lic 2000 panel - Serum or Plasma [facility] End: 10-08-2023 Digoxin level [facility] Work Phone: End: 12-08-2024 Esophagogastroduodenoscopy EGD GI Routine Esophagitis 1 Occurrences starting 12/09/2023 until 12/08/2024 [facility] Work Phone: Comment on above: 1 Occurrences starting 12/09/2023 until 12/08/2024 End: 12-23-2023 Haptoglobin [facility] Work Phone: End: 09-22-2023 Hemodialysis inpatient [facility] Work Phone: End: 12-24-2023 Hemoglobin and hematocrit, blood 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 Guidelines for O2: Yes; Document: \[employer]\epic\EPIC_Re ference\Orders\Respiratory Care Guidelines\CPG Oxygen 2020.pdf [facility] Work Phone: End: 10-07-2023 Platelets [#/volume] in Blood [facility] Work Phone: Protime & INR [facility] Work Phone: End: 12-23-2023 Troponin I.cardiac [Mass/volume] in Serum or [facility] End: 12-24-2023 Troponin I.cardiac [Mass/volume] in Serum or Plasma [facility] Work Phone: End: 12-25-2023 Type and screen(includes indirect aram) [facility] Work Phone: Immunizations Immunization Date Immunization Notes Care Provider Fa salas 10-14-2021 Influenza, injectabl e, Madin [place] Canine Kidney, preservative free, quadrivalent [employer] [facility] 10-14-2021 influenza virus vaccine, unspecified formulation [employer] [facility] Work Phone: [facility] 07-31-2020 influenza, injectabl e, quadrivalent, contains preservative [employer] Work [facility] Payers Date Payer Category Payer Private Health Insurance [id number] 2022 Private Health Insurance [id number] 2022 Medicare [id number] 2022 Medicare [id number] 1957 Unknown [id number] 2.16.84 [id number] 1957 Unknown [id number] 2.16.84 [id number] 1957 Unknown [id number] 2.16.84 [id number] 1957 Unknown [id number] 2.16.84 [id number] 1957 Unknown [id number] 2.16.84 [id number] 1957 Unknown [id number] 2.16.84 [id number] 1957 Unknown [id number] 2.16.84 [id number] 1957 Unknown [id number] 2.16.84 [id number] 1957 Unknown [id number] 2.16.84 [id number] 1957 Unknown [id number] 2.16.84 [id number] 1957 Unknown [id number] 2.16.84 [id number] Social History Date Type Detail Facility Start[facility]23 [facility] History of tobacco use Cigarette Smoker P [facility] Start: 09-20-2023 Tobacco use and exposure Smokeless tobacco non-user [facility] Start: 09-20-2023 End: 12-23-2023 Alcohol intake Lifetime non-drinker (finding) [facility] Start: 11-10-2020 End: 09-30-2023 History of Social function [facility] Start: 11-10-2020 End: 09-30-2023 [facility] Utilities [facility] Has the [employer], or [employer] threatened to shut off services in your home in past 12Mo No [facility] How often to you hav e a drink containing alcohol? Never [facility] How many standard drinks containing alcohol do you have on a typical day? Patient does not drink [facility] Start: 09-20-2023 Tobacco Comment 2 cigarettes a day P [facility] [employer] [facility] Start: 1955 Sex Assigned At Not on file P [facility] Goals Date Patient Goal Desired Activity /State Personal health goal Comment on above: Formatting of this n ote might be different from the original. Evaluation of progress towards goal: feeling better, up in room Personal health goal Comment on above: Formatting of this n ote might be different from the original. Below are four things you can do to prevent falls: Begin an exercise program to improve your leg strength & balance Ask your doctor or pharmacist to review your medicines Get annual eye check-ups & update your eyeglasses Make your home safer by: Removing clutter & tripping hazards Putting railings on all stairs & adding grab bars in the bathroom Having good lighting, especially on stairs Contact your local community or senior center for information on exercise, fall prevention programs, or options for improving home safety. Personal health goal Comment on above: Formatting of this n ote might be different from the original. Evaluation of progress towards goal: snf vs ltac Personal health goal Comment on above: Formatting of this n ote might be different from the original. Evaluation of progress towards goal: Clinical Notes 09-20-2023 to 02-12-2024 Discharge Planning Note - Crista Marcial RN - 12/28/2023 10:41 AM EDTDischarge Planning Note - Yumiko Suresh - 12/28/2023 10:[facility] - 12/28/2023 7:50 AM EDT Note Date & Type Note Facility 02-12-2024 Note 2ND ATTEMPT, NO ANSW ER LMOM. ALSO RECEIVED MORE RECORDS FROM OFFICE, CALLED AND LEFT THE NURSES LINE A MESSAGE INFORMING THEM OF THIS. [facility] 02-12-2024 Note Received referral fo r rectal cancer, called patient to set up an appt with Dr. Manriquez, no answer LMOM to contact me directly to set up an appt. [facility] 12-28-2023 Miscellaneous Notes DISCHARGE PLANNING NOTE DC to [facility] today at 7pm Transport time changed to 7pm as facility cannot take her till then. [facility] faxed and DC packet prepared. RN given number to call report. Crista Marcial RN DISCHARGE PLANNING NOTE BLS transport to [facility] on 12/28/23 at 1500 hours via PTN. Spoke with Robert at [facility] Problem: Pain Goal: Patient goal is pain score less than 4, able to rest, and participant in treatment plan as appropriate Description: INTERVENTIONS: 1. Encourage patient or legal motor vehicle representative to report early pain and ask for pain medicine when needed 2. Assess pain using appropriate pain scale and include the scale used when documenting 3. Administer analgesics based on type and severity of pain and evaluate response within appropriate time frame 4. Implement non-pharmacological measures as appropriate and evaluate response 5. Consider cultural and social influences on pain and pain management 6. Notify LIP if interventions ineffective or patient reports new pain 7. Monitor vital signs including pulse ox, end-tidal CO2 based on pain intervention 8. Reassess pain per policy 9. Teach patient or legal motor vehicle representative interventions for comforting Outcome: Progressing Note: Evaluation of progress towards goal: Patient denies pain at this time. Pain med ordered, given PRN. Will continue to monitor/assess q4h and prn Problem: Safety Goal: Patient will be injury free during hospitalization Description: INTERVENTIONS: 1. Assess patient's risk for falls and implement fall prevention plan of care per policy 2. Provide and maintain a safe environment 3. Proper use of double Identifiers 4. Medication administration using the 5 rights 5. Hand hygiene 6. Specimens are labeled at the bedside 7. Instruct patient/ patient motor vehicle representative about use of safety devices 8. Include patient/ patient motor vehicle representative in decisions related to safety Outcome: Progressing Note: Evaluation of progress towards goal: Patient remains free from falls and injuries. Patient's 5 P's addressed. Patient's bed is low and in a locked position. Patient's call light in reach. Will continue to monitor. Problem: Infection Goal: Absence of infection during hospitalization Description: Interventions: 1. Assess and monitor for signs and symptoms of infection 2. Monitor lab/diagnostic results 3. Monitor all insertion sites i.e., indwelling lines, tubes and drains 4. Monitor endotracheal (as able) and nasal secretions for changes in amount and color 5. Administer medications as ordered 6. Instruct and encourage patient and family to use good hand hygiene technique 7. Identify and instruct patient/patient motor vehicle representative in use of appropriate isolation precautions for identified infection/symptoms 8. Provide and discuss with patient/patient motor vehicle representative on educational MDRO sheet 9. Encourage and monitor nutritional status daily and consult hospital ward clerk if indicated 10. Implement neutropenic guidelines as needed 11. Review exposure to history of communicable disease and recent travel history on admission 12. Encourage annual influenza vaccine 13. Encourage pneumonia vaccine Outcome: Progressing Note: Evaluation of progress towards goal: Monitoring patient for s/s of infection, medications are being administered as ordered, infection control procedures are being followed, patient educated on importance of hand hygiene. Will continue to monitor. Problem: Knowledge Deficit Goal: Patient/patient motor vehicle representative demonstrates understanding of disease process, treatment plan, medications, and discharge instructions Description: INTERVENTIONS 1. Complete learning assessment and assess knowledge base 2. Provide teaching at level of understanding 3. Provide teaching via preferred learning method(s) Outcome: Progressing Note: Evaluation of progress towards goal: Patient updated and verbalized understanding of POC, along with medication education. Will continue to update and educate patient. Patient is encouraged to voice concerns and ask questions regarding care. Will continue to monitor for knowledge deficits and assess for any barriers to learning Problem: Discharge Planning Goal: Discharge to post-acute care, other facility, or home with appropriate resources Description: Patient's goal is: INTERVENTIONS 1. Conduct assessment to determine patient/family and health care team treatment goals, and need for post-acute services based on payer coverage, community resources, and patient preferences, and barriers to discharge 2. Coordinate with Social work, Care Navigation, and Utilization Review to arrange appropriate level of services according to patient's needs based on patient preference and payer coverage in collaboration with the physician and health care team 3. Address psychosocial, clinical, and financial barriers to discharge as identified in assessment in conjunction with the patient/family and health care team 4. Consult appropriate ancillary services (i.e.. PT/OT/ST, etc) as needed 5. Communicate with and update the patient/family, physician, and health care team regarding progress on the discharge plan 6. Identify discharge learning needs (meds, wound care, etc). 7. Arrange for needed discharge transportation as appropriate Outcome: Progressing Note: Evaluation of progress towards goal: Treatment team working to resolve barriers prior to patient discharge and to achieve discharge goals. Monitored and updated daily Problem: Glucose Imbalance Goal: Clinical indication of glucose balance is achieved Description: Patient's goal is: INTERVENTIONS 1. Monitor blood glucose levels as ordered 2. Administer medications as ordered 3. Notify physician of ineffective treatment plan Outcome: Progressing Note: Evaluation of progress towards goal: patient's blood sugar is being checked with meals, nightly, and as needed. Problem: Potential for Compromised Skin Integrity Goal: Skin integrity is maintained or improved Description: Patient's goal is: INTERVENTIONS 1. Perform initial skin assessment on admission and as needed 2. Turn patient every 2 hours and PRN 3. Relieve pressure to bony prominences 4. Avoid shearing 5. Keep skin clean and dry 6. Alternate a full bath with partial baths for elderly 7. Encourage use of lotion/moisturizer on skin 8. Monitor patient's hygiene practices 9. Float heels 10. Collaborate with interdisciplinary team and initiate plans and interventions as needed Outcome: Progressing Note: Evaluation of progress towards goal: Skin integrity being monitored. Patient repositioned. Problem: Moderate - High Risk Fall Score Description: [place] Fall Score of =/> 25 or indicated by [facility] Assessment Goal: Patient should be free from fall Description: Interventions: 1. [place] to environment 2. Hourly rounds addressing the 4 P's (Pain, Positioning, Possessions, Potty) 3. Clear area of hazards (spills, clutter, electrical cords, unnecessary equipment) 4. Place equipment (bed & TV controls, call light, phone, urinal) within reach 5. Encourage patient to wear glasses and hearing aides as appropriate 6. Maintain bed in lowest position 7. Lock wheels on bed/wheelchair 8. Provide adequate lighting, including night light 9. Assess need for additional bedding, food/fluids, pain med's prior to sleep/routinely 10. Provide gripper slippers or personal non-skid footwear 11. Teach patient and patient motor vehicle representative to maintain environment for safety and engage in all aspects of fall prevention program 12. Remind patient to call for help before getting out of bed 13. Initiate bed/chair/exit alarms supportive devices as appropriate, (chair wedge, no-skid floor mat, raised edge mattress, hip protectors) 14. Locate patient bed assignment for optimal visualization 15. Evaluate and identify Safe Patient Handling Equipment needs 16. Provide supervision when out of bed or chair 17. Utilize gait belt as needed to assist with ambulation 18. Place adaptive equipment (cane, walker) within reach 19. Request patient motor vehicle representative bring adaptive equipment/mobility aids from home or obtain and provide as needed 20. Consult pharmacy regarding effects of med's affecting mobility, cognition, and alternatives 21. Obtain physician order for PT if risk factors associated with mobility are present 22. Obtain physician order for OT as appropriate 23. Utilize diversional activities 24. Educate patient and patient motor vehicle representative how to maintain a safe environment during visitation times (notify nurse prior to leaving bedside) 25. Consider appropriateness of medical or non-certified medical technician 26. Set up voiding schedule as appropriate (every 2 hours) Outcome: Progressing Note: Evaluation of progress towards goal: Patient remains free from falls and injuries. Patient's 5 P's addressed. Patient's bed is low and in a locked position. Patient's call light in reach. Will continue to monitor. Problem: Pain Goal: Patient goal is pain score less than 4, able to rest, and participant in treatment plan as appropriate Description: INTERVENTIONS: 1. Encourage patient or legal motor vehicle representative to report early pain and ask for pain medicine when needed 2. Assess pain using appropriate pain scale and include the scale used when documenting 3. Administer analgesics based on type and severity of pain and evaluate response within appropriate time frame 4. Implement non-pharmacological measures as appropriate and evaluate response 5. Consider cultural and social influences on pain and pain management 6. Notify LIP if interventions ineffective or patient reports new pain 7. Monitor vital signs including pulse ox, end-tidal CO2 based on pain intervention 8. Reassess pain per policy 9. Teach patient or legal motor vehicle representative interventions for comforting Note: Evaluation of progress towards goal: Patient's pain is assessed and documented with appropriate pain scale. Patient does not report pain thus far, pt encouraged to let RN know if she starts to develop pain. Problem: Safety Goal: Patient will be injury free during hospitalization Description: INTERVENTIONS: 1. Assess patient's risk for falls and implement fall prevention plan of care per policy 2. Provide and maintain a safe environment 3. Proper use of double Identifiers 4. Medication administration using the 5 rights 5. Hand hygiene 6. Specimens are labeled at the bedside 7. Instruct patient/ patient motor vehicle representative about use of safety devices 8. Include patient/ patient motor vehicle representative in decisions related to safety Note: Evaluation of progress towards goal: Patient will remain fall free. Q1 rounding. Bedside table, call light within reach. Bed alarm set. Problem: Infection Goal: Absence of infection during hospitalization Description: Interventions: 1. Assess and monitor for signs and symptoms of infection 2. Monitor lab/diagnostic results 3. Monitor all insertion sites i.e., indwelling lines, tubes and drains 4. Monitor endotracheal (as able) and nasal secretions for changes in amount and color 5. Administer medications as ordered 6. Instruct and encourage patient and family to use good hand hygiene technique 7. Identify and instruct patient/patient motor vehicle representative in use of appropriate isolation precautions for identified infection/symptoms 8. Provide and discuss with patient/patient motor vehicle representative on educational MDRO sheet 9. Encourage and monitor nutritional status daily and consult hospital ward clerk if indicated 10. Implement neutropenic guidelines as needed 11. Review exposure to history of communicable disease and recent travel history on admission 12. Encourage annual influenza vaccine 13. Encourage pneumonia vaccine Note: Evaluation of progress towards goal: Pt taking antibiotics per the MAR for prior infection. Pt is afebrile, vital signs and labs monitored for s/s of worsening infection. Problem: Knowledge Deficit Goal: Patient/patient motor vehicle representative demonstrates understanding of disease process, treatment plan, medications, and discharge instructions Description: INTERVENTIONS 1. Complete learning assessment and assess knowledge base 2. Provide teaching at level of understanding 3. Provide teaching via preferred learning method(s) Note: Evaluation of progress towards goal: Patient verbalizes understanding of care plan, treatment and medication. Patient understands current hospital stay. Care ongoing Problem: Potential for Compromised Skin Integrity Goal: Skin integrity is maintained or improved Description: Patient's goal is: INTERVENTIONS 1. Perform initial skin assessment on admission and as needed 2. Turn patient every 2 hours and PRN 3. Relieve pressure to bony prominences 4. Avoid shearing 5. Keep skin clean and dry 6. Alternate a full bath with partial baths for elderly 7. Encourage use of lotion/moisturizer on skin 8. Monitor patient's hygiene practices 9. Float heels 10. Collaborate with interdisciplinary team and initiate plans and interventions as needed Note: Evaluation of progress towards goal: Patient will report altered sensation or pain at site of tissue impairment. Patient will demonstrate the understanding of plan to heal tissue and prevent injury. Describe measures to protect and heal the tissue, including wound care. Problem: Discharge Planning Goal: Discharge to post-acute care, other facility, or home with appropriate resources Description: Patient's goal is: INTERVENTIONS 1. Conduct assessment to determine patient/family and health care team treatment goals, and need for post-acute services based on payer coverage, community resources, and patient preferences, and barriers to discharge 2. Coordinate with Social work, Care Navigation, and Utilization Review to arrange appropriate level of services according to patient's needs based on patient preference and payer coverage in collaboration with the physician and health care team 3. Address psychosocial, clinical, and financial barriers to discharge as identified in assessment in conjunction with the patient/family and health care team 4. Consult appropriate ancillary services (i.e.. PT/OT/ST, etc) as needed 5. Communicate with and update the patient/family, physician, and health care team regarding progress on the discharge plan 6. Identify discharge learning needs (meds, wound care, etc). 7. Arrange for needed discharge transportation as appropriate Note: Evaluation of progress towards goal: Treatment team working to resolve barriers prior to patient discharge and to achieve discharge goals of returning home, or being admitted to SNF . DISCHARGE PLANNING NOTE Case discussed in daily transition rounds and chart reviewed by CN. Barriers to discharge include MRI Discharge Plan remains: return to [facility]. BLS cert/packet on chart. CN will continue to follow and is available should any further needs arise. - Debora Wooten RN 12/27/23 1:59 PM Enterostomal Therapy ET has been consulted to see pt for application of KCI vac dressing to her coccyx. Upon my arrival to the bedside, pt is off of floor to CT. Discussed with bedside RN that the plans for DC will be determined by the results of the CT and that DC may be later today or tomorrow. Pt has refused the morning test and plans are in place to return to CT at 1300 after receiving a dose of ativan. Discussion also had with Dr. Carrillo and Mayra Rouse with wound care service line to determine that everyone is agreeable for start of vac dressing at receiving facility. Will follow up on Saturday if pt is still here to determine the plan of DC at that time. Will continue to follow Lucy Solomon hi again Dr. Carrillo! I attached Kelli the wound care nurse so that she can stay in the loop as well about the plan. MRI techs sent her back to the floor because they can not accommodate her right now. They are going to try again at 1pm and I will give her the IV ativan prior to that. I just wanted to keep Kelli informed about what we talked about earlier and that after the Mri you will check wit Rad/onc and if they do not have any furthur plans that she can d/c later today. If this is still the plan, then she doesn't need the wound vac placed today and they will place it outpatient at her [facility]. Correct? Just wanted to confirm..thanks :) Dr. Abreu - Correct. I will keep you updated. It all depends on what the MRI shows and what Oncology wants to do. Myself : I greatly appreciate the information. At this point, I am following from a distance until DC timing is determined. With the understanding of today being Saturday. It may prove to be in her best interest (fewer dressing changes with potential of DC this weekend) to just plan to apply vac dressing on Saturday if she is still here. Problem: Pain Goal: Patient goal is pain score less than 4, able to rest, and participant in treatment plan as appropriate Description: INTERVENTIONS: 1. Encourage patient or legal motor vehicle representative to report early pain and ask for pain medicine when needed 2. Assess pain using appropriate pain scale and include the scale used when documenting 3. Administer analgesics based on type and severity of pain and evaluate response within appropriate time frame 4. Implement non-pharmacological measures as appropriate and evaluate response 5. Consider cultural and social influences on pain and pain management 6. Notify LIP if interventions ineffective or patient reports new pain 7. Monitor vital signs including pulse ox, end-tidal CO2 based on pain intervention 8. Reassess pain per policy 9. Teach patient or legal motor vehicle representative interventions for comforting Outcome: Progressing Note: Evaluation of progress towards goal: Pain assessed using appropiate pain scale. Medications administered as ordered. Hourly rounding implemented. Pain reassessed one hour after medications. Will continue to monitor. Problem: Safety Goal: Patient will be injury free during hospitalization Description: INTERVENTIONS: 1. Assess patient's risk for falls and implement fall prevention plan of care per policy 2. Provide and maintain a safe environment 3. Proper use of double Identifiers 4. Medication administration using the 5 rights 5. Hand hygiene 6. Specimens are labeled at the bedside 7. Instruct patient/ patient motor vehicle representative about use of safety devices 8. Include patient/ patient motor vehicle representative in decisions related to safety Outcome: Progressing Note: Evaluation of progress towards goal: Patient will remain injury free during hospital stay. Patient bed in lowest and locked position. Patient will use call light when needing assistance. Will continue to monitor. Problem: Infection Goal: Absence of infection during hospitalization Description: Interventions: 1. Assess and monitor for signs and symptoms of infection 2. Monitor lab/diagnostic results 3. Monitor all insertion sites i.e., indwelling lines, tubes and drains 4. Monitor endotracheal (as able) and nasal secretions for changes in amount and color 5. Administer medications as ordered 6. Instruct and encourage patient and family to use good hand hygiene technique 7. Identify and instruct patient/patient motor vehicle representative in use of appropriate isolation precautions for identified infection/symptoms 8. Provide and discuss with patient/patient motor vehicle representative on educational MDRO sheet 9. Encourage and monitor nutritional status daily and consult hospital ward clerk if indicated 10. Implement neutropenic guidelines as needed 11. Review exposure to history of communicable disease and recent travel history on admission 12. Encourage annual influenza vaccine 13. Encourage pneumonia vaccine Outcome: Progressing Note: Evaluation of progress towards goal: Patient will remain afebrile during hospital stay. Patient WBC count will remain within normal limits. Will continue to monitor. Problem: Knowledge Deficit Goal: Patient/patient motor vehicle representative demonstrates understanding of disease process, treatment plan, medications, and discharge instructions Description: INTERVENTIONS 1. Complete learning assessment and assess knowledge base 2. Provide teaching at level of understanding 3. Provide teaching via preferred learning method(s) Outcome: Progressing Note: Evaluation of progress towards goal: Patient will verbalize understanding of treatment plan. Patient will demonstrate understanding of medications and disease process. Will continue to monitor. Problem: Discharge Planning Goal: Discharge to post-acute care, other facility, or home with appropriate resources Description: Patient's goal is: INTERVENTIONS 1. Conduct assessment to determine patient/family and health care team treatment goals, and need for post-acute services based on payer coverage, community resources, and patient preferences, and barriers to discharge 2. Coordinate with Social work, Care Navigation, and Utilization Review to arrange appropriate level of services according to patient's needs based on patient preference and payer coverage in collaboration with the physician and health care team 3. Address psychosocial, clinical, and financial barriers to discharge as identified in assessment in conjunction with the patient/family and health care team 4. Consult appropriate ancillary services (i.e.. PT/OT/ST, etc) as needed 5. Communicate with and update the patient/family, physician, and health care team regarding progress on the discharge plan 6. Identify discharge learning needs (meds, wound care, etc). 7. Arrange for needed discharge transportation as appropriate Outcome: Progressing Note: Evaluation of progress towards goal: Discharge not appropriate at this time Problem: Glucose Imbalance Goal: Clinical indication of glucose balance is achieved Description: Patient's goal is: INTERVENTIONS 1. Monitor blood glucose levels as ordered 2. Administer medications as ordered 3. Notify physician of ineffective treatment plan Outcome: Progressing Note: Evaluation of progress towards goal: BS monitored. Insulin given as needed per sliding scale. Care continued Problem: Moderate - High Risk Fall Score Description: Sepulveda Fall Score of =/> 25 or indicated by [facility] Assessment Goal: Patient should be free from fall Description: Interventions: 1. [place] to environment 2. Hourly rounds addressing the 4 P's (Pain, Positioning, Possessions, Potty) 3. Clear area of hazards (spills, clutter, electrical cords, unnecessary equipment) 4. Place equipment (bed & TV controls, call light, phone, urinal) within reach 5. Encourage patient to wear glasses and hearing aides as appropriate 6. Maintain bed in lowest position 7. Lock wheels on bed/wheelchair 8. Provide adequate lighting, including night light 9. Assess need for additional bedding, food/fluids, pain med's prior to sleep/routinely 10. Provide gripper slippers or personal non-skid footwear 11. Teach patient and patient motor vehicle representative to maintain environment for safety and engage in all aspects of fall prevention program 12. Remind patient to call for help before getting out of bed 13. Initiate bed/chair/exit alarms supportive devices as appropriate, (chair wedge, no-skid floor mat, raised edge mattress, hip protectors) 14. Locate patient bed assignment for optimal visualization 15. Evaluate and identify Safe Patient Handling Equipment needs 16. Provide supervision when out of bed or chair 17. Utilize gait belt as needed to assist with ambulation 18. Place adaptive equipment (cane, walker) within reach 19. Request patient motor vehicle representative bring adaptive equipment/mobility aids from home or obtain and provide as needed 20. Consult pharmacy regarding effects of med's affecting mobility, cognition, and alternatives 21. Obtain physician order for PT if risk factors associated with mobility are present 22. Obtain physician order for OT as appropriate 23. Utilize diversional activities 24. Educate patient and patient motor vehicle representative how to maintain a safe environment during visitation times (notify nurse prior to leaving bedside) 25. Consider appropriateness of medical or non-certified medical technician 26. Set up voiding schedule as appropriate (every 2 hours) Outcome: Progressing Note: Evaluation of progress towards goal: Patient will remain injury free during hospital stay. Patient bed in lowest and locked position. Patient will use call light when needing assistance. Will continue to monitor. Problem: Multi-Drug Resistant Organism / Rule-Out Infection Prevention Goal: Prevent transmission of infection Description: INTERVENTIONS 1. Place patient in private room or in room with patient with same disease 2. Discard single-use items 3. Clean reusable equipment between patients 4. Wear gloves for direct and indirect contact with patient or contaminants 5. Change gloves between tasks and procedures 6. Wash hands before and after caring for each patient 7. Wear appropriate personal protective equipment in relation to the indicated isolation type 8. Place appropriate isolation signage on patient's door 9. Provide patient/ patient motor vehicle representative with isolation education. Outcome: Progressing Note: Evaluation of progress towards goal: Patient will remain afebrile during hospital stay. Patient WBC count will remain within normal limits. Will continue to monitor. Problem: Potential for Compromised Skin Integrity Goal: Patient's nutritional intake is adequate Description: Patient's goal is: INTERVENTIONS 1. Assess and monitor food intake and supplements, patient food preferences, nausea, vomiting, labs, oral cavity (gums, teeth, tongue, mucosa), proper denture fit, and cultural beliefs 2. Monitor for signs of hypoglycemia and hyperglycemia 3. Collaborate with interdisciplinary team and initiate plan and interventions as ordered 4. Monitor patient's weight 5. Assist patient with meals/food selection 6. Assist patient with eating 7. Allow adequate time for meals 8. Provide pleasant environment during mealtime 9. Increase social contact during mealtimes 10. Plan activities to conserve energy 11. Encourage/perform oral hygiene as appropriate 12. Encourage patient to take dietary supplement as ordered 13. Collaborate with clinical hospital ward clerk 14. Include patient/ patient's motor vehicle representative in decisions related to nutrition Outcome: Not Progressing Note: Evaluation of progress towards goal: poor intake Problem: Pain Goal: Patient goal is pain score less than 4, able to rest, and participant in treatment plan as appropriate Description: INTERVENTIONS: 1. Encourage patient or legal motor vehicle representative to report early pain and ask for pain medicine when needed 2. Assess pain using appropriate pain scale and include the scale used when documenting 3. Administer analgesics based on type and severity of pain and evaluate response within appropriate time frame 4. Implement non-pharmacological measures as appropriate and evaluate response 5. Consider cultural and social influences on pain and pain management 6. Notify LIP if interventions ineffective or patient reports new pain 7. Monitor vital signs including pulse ox, end-tidal CO2 based on pain intervention 8. Reassess pain per policy 9. Teach patient or legal motor vehicle representative interventions for comforting Outcome: Progressing Note: Evaluation of progress towards goal: Pain medication administered PRN per request and as scheduled, assessed per policy, pt denies pain at this time. Problem: Safety Goal: Patient will be injury free during hospitalization Description: INTERVENTIONS: 1. Assess patient's risk for falls and implement fall prevention plan of care per policy 2. Provide and maintain a safe environment 3. Proper use of double Identifiers 4. Medication administration using the 5 rights 5. Hand hygiene 6. Specimens are labeled at the bedside 7. Instruct patient/ patient motor vehicle representative about use of safety devices 8. Include patient/ patient motor vehicle representative in decisions related to safety Outcome: Progressing Note: Evaluation of progress towards goal: Call light within reach, safety maintained. Problem: Infection Goal: Absence of infection during hospitalization Description: Interventions: 1. Assess and monitor for signs and symptoms of infection 2. Monitor lab/diagnostic results 3. Monitor all insertion sites i.e., indwelling lines, tubes and drains 4. Monitor endotracheal (as able) and nasal secretions for changes in amount and color 5. Administer medications as ordered 6. Instruct and encourage patient and family to use good hand hygiene technique 7. Identify and instruct patient/patient motor vehicle representative in use of appropriate isolation precautions for identified infection/symptoms 8. Provide and discuss with patient/patient motor vehicle representative on educational MDRO sheet 9. Encourage and monitor nutritional status daily and consult hospital ward clerk if indicated 10. Implement neutropenic guidelines as needed 11. Review exposure to history of communicable disease and recent travel history on admission 12. Encourage annual influenza vaccine 13. Encourage pneumonia vaccine Outcome: Progressing Note: Evaluation of progress towards goal: Monitor for s/sx of infection, treat per orders. Problem: Knowledge Deficit Goal: Patient/patient motor vehicle representative demonstrates understanding of disease process, treatment plan, medications, and discharge instructions Description: INTERVENTIONS 1. Complete learning assessment and assess knowledge base 2. Provide teaching at level of understanding 3. Provide teaching via preferred learning method(s) Outcome: Progressing Note: Evaluation of progress towards goal: Keep pt updated on poc and new testing, results, and procedures. Problem: Discharge Planning Goal: Discharge to post-acute care, other facility, or home with appropriate resources Description: Patient's goal is: INTERVENTIONS 1. Conduct assessment to determine patient/family and health care team treatment goals, and need for post-acute services based on payer coverage, community resources, and patient preferences, and barriers to discharge 2. Coordinate with Social work, Care Navigation, and Utilization Review to arrange appropriate level of services according to patient's needs based on patient preference and payer coverage in collaboration with the physician and health care team 3. Address psychosocial, clinical, and financial barriers to discharge as identified in assessment in conjunction with the patient/family and health care team 4. Consult appropriate ancillary services (i.e.. PT/OT/ST, etc) as needed 5. Communicate with and update the patient/family, physician, and health care team regarding progress on the discharge plan 6. Identify discharge learning needs (meds, wound care, etc). 7. Arrange for needed discharge transportation as appropriate Outcome: Progressing Note: Evaluation of progress towards goal: Review discharge plans with pt before discharge. Discharge is ongoing. Problem: Glucose Imbalance Goal: Clinical indication of glucose balance is achieved Description: Patient's goal is: INTERVENTIONS 1. Monitor blood glucose levels as ordered 2. Administer medications as ordered 3. Notify physician of ineffective treatment plan Outcome: Progressing Note: Evaluation of progress towards goal: Monitoring blood glucose level, insulin coverage as needed. Goal: Patient's discharge needs are met Description: Patient's goal is: INTERVENTIONS 1. Assess patient for self-management skills 2. Encourage participation in diabetes management 3. Identify potential discharge barriers on admission and throughout hospital stay 4. Involve patient/S.O. in discharge planning process 5. Communicate referral to nurse educator as appropriate 6. Communicate referral to hospital ward clerk as appropriate 7. Collaborate with case management/clinical social worker for discharge needs Outcome: Progressing Note: Evaluation of progress towards goal: pt needs will be met before discharge. Problem: Potential for Compromised Skin Integrity Goal: Skin integrity is maintained or improved Description: Patient's goal is: INTERVENTIONS 1. Perform initial skin assessment on admission and as needed 2. Turn patient every 2 hours and PRN 3. Relieve pressure to bony prominences 4. Avoid shearing 5. Keep skin clean and dry 6. Alternate a full bath with partial baths for elderly 7. Encourage use of lotion/moisturizer on skin 8. Monitor patient's hygiene practices 9. Float heels 10. Collaborate with interdisciplinary team and initiate plans and interventions as needed Outcome: Progressing Note: Evaluation of progress towards goal: Skin is kept clean and dry, skin care as needed. Skin is maintained. Problem: Urinary Incontinence Goal: Perineal skin integrity is maintained or improved Description: INTERVENTIONS 1. Assess genitourinary system, perineal skin, labs (urinalysis), and history of incontinence to include past management, aggravating, and alleviating factors 2. Keep skin clean and dry 3. Apply skin protectant 4. Develop skin care regimen 5. Provide privacy when changing patients incontinence device to maintain their dignity 6. Consider placing an indwelling catheter 7. Collaborate with interdisciplinary team and initiate plans and interventions as needed Outcome: Progressing Note: Evaluation of progress towards goal: Skin kept clean and dry, brant care as needed, perineal skin is maintained. Problem: Moderate - High Risk Fall Score Description: Sepulveda Fall Score of =/> 25 or indicated by [facility] Assessment Goal: Patient should be free from fall Description: Interventions: 1. [place] to environment 2. Hourly rounds addressing the 4 P's (Pain, Positioning, Possessions, Potty) 3. Clear area of hazards (spills, clutter, electrical cords, unnecessary equipment) 4. Place equipment (bed & TV controls, call light, phone, urinal) within reach 5. Encourage patient to wear glasses and hearing aides as appropriate 6. Maintain bed in lowest position 7. Lock wheels on bed/wheelchair 8. Provide adequate lighting, including night light 9. Assess need for additional bedding, food/fluids, pain med's prior to sleep/routinely 10. Provide gripper slippers or personal non-skid footwear 11. Teach patient and patient motor vehicle representative to maintain environment for safety and engage in all aspects of fall prevention program 12. Remind patient to call for help before getting out of bed 13. Initiate bed/chair/exit alarms supportive devices as appropriate, (chair wedge, no-skid floor mat, raised edge mattress, hip protectors) 14. Locate patient bed assignment for optimal visualization 15. Evaluate and identify Safe Patient Handling Equipment needs 16. Provide supervision when out of bed or chair 17. Utilize gait belt as needed to assist with ambulation 18. Place adaptive equipment (cane, walker) within reach 19. Request patient motor vehicle representative bring adaptive equipment/mobility aids from home or obtain and provide as needed 20. Consult pharmacy regarding effects of med's affecting mobility, cognition, and alternatives 21. Obtain physician order for PT if risk factors associated with mobility are present 22. Obtain physician order for OT as appropriate 23. Utilize diversional activities 24. Educate patient and patient motor vehicle representative how to maintain a safe environment during visitation times (notify nurse prior to leaving bedside) 25. Consider appropriateness of medical or non-certified medical technician 26. Set up voiding schedule as appropriate (every 2 hours) Outcome: Progressing Note: Evaluation of progress towards goal: Call light within reach for assistance and safety, safety maintained. Problem: Readmission Risk Reduction Goal: Readmission Risk Assessment Description: Utilize readmission risk score in the development of discharge plan INTERVENTIONS: 1. Discuss patient's risk of readmission at multidisciplinary discharge transition rounds. 2. Comprehensive assessment of patient's risk of readmission (functional, psychosocial, cognitive). 3. Collaborate with patient / caregiver to identify needs. 4. Handoff to next level of care provider (health care sanitary technician, PCP, home care). 5. Complete follow up phone call within 72 hours. Outcome: Progressing Note: Evaluation of progress towards goal: Goal: Discharge Medication Plan Description: Develop a plan to ensure that medications are obtained at the time of discharge INTERVENTIONS: 1. Utilize outpatient pharmacy to deliver medications to patient prior to discharge, where available. 2. Ensure that prescriptions are sent to the patient's pharmacy of choice prior to patient leaving the hospital. If possible, confirm authorizations and co-pays and communicate to patient. 3. During discharge follow-up phone call, confirm that prescriptions have been filled. Outcome: Progressing Note: Evaluation of progress towards goal: Goal: Follow-Up Appointments Description: Schedule patient-centric follow-up appointments prior to discharge INTERVENTIONS: 1. Identify recommended / appropriate timeframes for follow-up. 2. Discuss transportation needs and scheduling preferences with patient. 3. Verify that all follow-up appointments are scheduled prior to discharge. Outcome: Progressing Note: Evaluation of progress towards goal: Goal: Discharge Medication Reconciliation Description: Review discharge medication reconciliation for accuracy INTERVENTIONS: 1. Include last dose date / time on the discharge medication list. 2. Utilize available resources to identify and address issues. 3. Consider use of a Discharge Time-Out or Discharge Final Check. 4. Refer to homecare, as appropriate, for home medication review. Outcome: Progressing Note: Evaluation of progress towards goal: Goal: Discharge Instructions Description: Provide accurate and complete discharge instructions, taking into account health literacy of the patient INTERVENTIONS: 1. Assess patient's learning needs including health literacy. 2. Provide disease-specific education as appropriate. 3. Consider use of teach-back to verify patient / caregiver understanding. 4. Verify understanding of discharge instructions. 5. Consider use of a Discharge Time-Out or Discharge Final-Check. Outcome: Progressing Note: Evaluation of progress towards goal: Problem: Multi-Drug Resistant Organism / Rule-Out Infection Prevention Goal: Prevent transmission of infection Description: INTERVENTIONS 1. Place patient in private room or in room with patient with same disease 2. Discard single-use items 3. Clean reusable equipment between patients 4. Wear gloves for direct and indirect contact with patient or contaminants 5. Change gloves between tasks and procedures 6. Wash hands before and after caring for each patient 7. Wear appropriate personal protective equipment in relation to the indicated isolation type 8. Place appropriate isolation signage on patient's door 9. Provide patient/ patient motor vehicle representative with isolation education. Outcome: Progressing Note: Evaluation of progress towards goal: Antibiotic per order administer per nov, watch for further s/sx of infection. Enterostomal Therapy Discussed with [facility] team and with bedside staff the rationale of waiting to apply the sacral wound vac dressing until rectal bleeding resolves. Will follow and re-evaluate poc. Discussed use of wound vac with enterostomal therapy. Patient is having rectal bleeding currently which will affect seal of negative pressure wound therapy, and would most likely compromise the seal. Will continue to evaluate wound and rectal bleeding with hope to apply wound vac as soon as possible. Mayra Rouse DNP,DOLORES, SHRUTI [facility] Pager #[phone] Sat-Sat 8a-4:00p [phone] NICOLAS Vazquez 12/26/23 1510 DISCHARGE PLANNING NOTE Case discussed in daily transition rounds and chart reviewed by CN. Barriers to discharge include MRI, monitoring Hgb, Hep gtt on hold, O2, wound care, IV ABT plan Discharge Plan remains: return to [facility]. CN will continue to follow and is available should any further needs arise. - Debora Wooten RN 12/26/23 1:15 PM Problem: Pain Goal: Patient goal is pain score less than 4, able to rest, and participant in treatment plan as appropriate Description: INTERVENTIONS: 1. Encourage patient or legal motor vehicle representative to report early pain and ask for pain medicine when needed 2. Assess pain using appropriate pain scale and include the scale used when documenting 3. Administer analgesics based on type and severity of pain and evaluate response within appropriate time frame 4. Implement non-pharmacological measures as appropriate and evaluate response 5. Consider cultural and social influences on pain and pain management 6. Notify LIP if interventions ineffective or patient reports new pain 7. Monitor vital signs including pulse ox, end-tidal CO2 based on pain intervention 8. Reassess pain per policy 9. Teach patient or legal motor vehicle representative interventions for comforting Outcome: Progressing Note: Evaluation of progress towards goal: patient denies pain Problem: Safety Goal: Patient will be injury free during hospitalization Description: INTERVENTIONS: 1. Assess patient's risk for falls and implement fall prevention plan of care per policy 2. Provide and maintain a safe environment 3. Proper use of double Identifiers 4. Medication administration using the 5 rights 5. Hand hygiene 6. Specimens are labeled at the bedside 7. Instruct patient/ patient motor vehicle representative about use of safety devices 8. Include patient/ patient motor vehicle representative in decisions related to safety Outcome: Progressing Note: Evaluation of progress towards goal: Patient remains free of falls and injury this shift. PPH NIGHT Patient's hemoglobin has continued to trend down, most recent 6.8. Manager Of Regulatory Affairs obtained verbal consent for blood transfusion over the phone with the primary RN as witness. Patient agrees to transfusion and had no additional questions at this time. 1 unit of PRBC ordered Component Latest Ref Rng 12/04/2023 12/22/2023 12/23/2023 12/24/2023 12/25/2023 12/26/2023 Hemoglobin 11.7 - 15.5 g/dL 9.0 (L) 8.1 (L) 8.1 (L) 7.1 (L) 6.9 (LL) 6.8 (LL) Hemoglobin 7.3 (L) 7.9 (L) 7.9 (L) Hemoglobin 8.2 (L) 7.3 (L) Prashant Rivers PA-C 12/26/23 0123 ADDENDUM: At 3:30 AM RN noted a moderate amount of bleeding from rectum, described as darkish red color with some clots. RN then reassessed at 5 AM and states there continues to be some bleeding however it has decreased. RN notes this is from the rectum as she noted changing dressing of ulcer earlier and there was only scant serosang drainage. Patient currently get 1 unit of PRBC. Vitals remain stable. Prashant Rivers PA-C 12/26/23 0529 Problem: Safety Goal: Patient will be injury free during hospitalization Description: INTERVENTIONS: 1. Assess patient's risk for falls and implement fall prevention plan of care per policy 2. Provide and maintain a safe environment 3. Proper use of double Identifiers 4. Medication administration using the 5 rights 5. Hand hygiene 6. Specimens are labeled at the bedside 7. Instruct patient/ patient motor vehicle representative about use of safety devices 8. Include patient/ patient motor vehicle representative in decisions related to safety Outcome: Progressing Note: Evaluation of progress towards goal: No injuries reported this shift. Call light within reach. DISCHARGE PLANNING NOTE Case discussed in daily transition rounds and chart reviewed by CN. Barriers to discharge include Hgb trending down, Hep on hold, NPO, O2, Wound care, IV ABT Discharge Plan remains: [facility]. CN will continue to follow and is available should any further needs arise. - Debora Wooten RN 12/25/23 4:04 PM Problem: Discharge Planning Goal: Discharge to post-acute care, other facility, or home with appropriate resources Description: Patient's goal is: INTERVENTIONS 1. Conduct assessment to determine patient/family and health care team treatment goals, and need for post-acute services based on payer coverage, community resources, and patient preferences, and barriers to discharge 2. Coordinate with Social work, Care Navigation, and Utilization Review to arrange appropriate level of services according to patient's needs based on patient preference and payer coverage in collaboration with the physician and health care team 3. Address psychosocial, clinical, and financial barriers to discharge as identified in assessment in conjunction with the patient/family and health care team 4. Consult appropriate ancillary services (i.e.. PT/OT/ST, etc) as needed 5. Communicate with and update the patient/family, physician, and health care team regarding progress on the discharge plan 6. Identify discharge learning needs (meds, wound care, etc). 7. Arrange for needed discharge transportation as appropriate Outcome: Progressing Note: Evaluation of progress towards goal: Continue POC. Await cardiac CT. Await MRI Rectal. Return to [facility] when ready Additional Comments: Query Response Note CDI QUERY TEXT: Cause and Effect Relationship [id number] Disclaimer: By submitting this query, we are merely seeking further clarification of documentation to accurately reflect all conditions that you are monitoring, evaluating, treating or that extend the hospitalization or utilize additional resources of care. Please utilize your independent clinical judgment when addressing the question(s) below. Dear Dr. Villagomez, A cause and effect relationship may not be assumed and must be documented by a provider. Please clarify the relationship, if any, between Sepsis and Exploratory Laparotomy performed 10/2023. Notes: 12/21-H&P: ...recent admission to ICU in October of 2023 in which had ex lap with small-bowel resection and colostomy wound VAC due to GI bleed and hemodialysis. Per chart review, patient presented to emergency department after being tachycardic 160s, feeling of unwell while getting MRI today to evaluate her rectal cancer. Sepsis, likely secondary to acute cholecystitis vs stage 4 ulcer vs malignancy vs picc line LUE placed last admission which had been for TPN , vs prior surgical wounds. 12/22-Surgery PN: Right upper quadrant ultrasound showing gallbladder distention with internal debris/sludge. No gallbladder wall thickening to suggest acute cholecystitis. Unlikely source for patient's deterioration. 12/24-Surgery PN: ...68 y.o. female whom is Hospital Day: 4 with significant past medical history who was recently in the ICU in October of 2023 secondary to GI bleed requiring exploratory laparotomy with small-bowel resection and colostomy creation. 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 Here after becoming tachycardic and hypotensive during MRI. Vitals: BP-85/73, 100/76; HR-152, 156; RR-22, 27; Temp-98.2; O2-99%, 100% Labs: WBC-15.9, CR-1.28, BUN-32, LA-1.0, Urine Culture->100,000 ORGANISMS/mL ENTEROCOCCUS SPECIES, Wound Culture-RARE PLEOMORPHIC GRAM-POSITIVE RODS, FEW E COLI Treatments: Monitored, IV Cefepime, IV Ceftriaxone, IV Metronidazole, IV Vancomycin, NS [id number] Risk Factors: 68 y/o female presents to ED with tachycardia-Afib, hypotensive, confusion. Recent admission to ICU in October of 2023 in which had ex lap with small-bowel resection and colostomy wound VAC due to GI bleed and hemodialysis. Was recently on TPN through PICC line just transitioned to PO feeding couple days ago. Are the conditions: - Due to or associated with each other - Unrelated to each other - Other, please specify - Unknown Thank you, BRIGID Oden Clinical Machine Fe[employer] Reducer Clinical Documentation Integrity Email: [email or web address] The Clinical Documentation Integrity (CDI) staff are working remotely. If you have any questions or concerns regarding this query, please feel free to call or send via e-mail. The patient's Clinical Indicators include: See query CDI RESPONSE TEXT: Unable to determine. Query created by: Tara Lantigua on 12/25/2023 9:42 AM CDI QUERY TEXT: Cause and Effect Relationship [id number] Disclaimer: By submitting this query, we are merely seeking further clarification of documentation to accurately reflect all conditions that you are monitoring, evaluating, treating or that extend the hospitalization or utilize additional resources of care. Please utilize your independent clinical judgment when addressing the question(s) below. Dear Dr. Villagomez, A cause and effect relationship may not be assumed and must be documented by a provider. Please clarify the relationship, if any, between UTI and Urinary Catheter placed 11/18/2023. Notes: 12/21-ED MD: Laboratory workup did show evidence of leukocytosis WBC 13.9 hemoglobin low at 8.2 but stable and chronic for her. Troponin came back negative, BNP 828. Urinalysis on point of care does not look overtly concerning however formal UA did show 40 WBC per HPF. ...urine is concerning for possible UTI and abdominal wound is concerning for possible infectious etiology as well. I later received a call from the patient's PCP, Dr. Grant, who advised that patient is known to be septic recently had an ESBL UTI was actually on daptomycin and meropenem at 1 point in time. Vitals: BP-85/73, 100/76; HR-152, 156; RR-22, 27; Temp-98.2; O2-99%, 100% Labs: WBC-15.9, CR-1.28, BUN-32, LA-1.0, Urine Culture->100,000 ORGANISMS/mL ENTEROCOCCUS SPECIES, Wound Culture-RARE PLEOMORPHIC GRAM-POSITIVE RODS, FEW E COLI Treatments: Monitored, IV Cefepime, IV Ceftriaxone, IV Metronidazole, IV Vancomycin, NS Bolus-2700ml Risk Factors: 68 y/o female presents to ED with tachycardia-Afib, hypotensive, confusion. Recent admission to ICU in October of 2023 in which had ex lap with small-bowel resection and colostomy wound VAC due to GI bleed and hemodialysis. Was recently on TPN through PICC line just transitioned to PO feeding couple days ago. Are the conditions: - Due to or associated with each other - Unrelated to each other - Clinically unable to determine - Unknown Thank you, Tara Lantigua DIAGNOSTIC ASSISTANT Clinical Machine [employer] Clinical Documentation Integrity Email: [email or web address] The Clinical Documentation Integrity (CDI) staff are working remotely. If you have any questions or concerns regarding this query, please feel free to call or send via e-mail. The patient's Clinical Indicators include: See Query CDI RESPONSE TEXT: Clinically unable to determine. Query created by: Tara Lantigua on 12/25/2023 9:42 AM Electronically signed by: Radha Villagomez MD 12/25/2023 11:46 AM Manager Of Regulatory Affairs spoke with Dr. De Paz with Nephrology. He stated that there is not a need for him to place a consult note; Patients kidney function is fine and Dr. De Paz is okay with patient receiving MRI contrast. If any problems arise, Dr. De Paz stated to feel free to reconsult. Problem: Pain Goal: Patient goal is pain score less than 4, able to rest, and participant in treatment plan as appropriate Description: INTERVENTIONS: 1. Encourage patient or legal motor vehicle representative to report early pain and ask for pain medicine when needed 2. Assess pain using appropriate pain scale and include the scale used when documenting 3. Administer analgesics based on type and severity of pain and evaluate response within appropriate time frame 4. Implement non-pharmacological measures as appropriate and evaluate response 5. Consider cultural and social influences on pain and pain management 6. Notify LIP if interventions ineffective or patient reports new pain 7. Monitor vital signs including pulse ox, end-tidal CO2 based on pain intervention 8. Reassess pain per policy 9. Teach patient or legal motor vehicle representative interventions for comforting Outcome: Progressing Note: Evaluation of progress towards goal: Patient's pain is assessed and documented with appropriate pain scale. Patient's pain is relieved with PRN medications. Problem: Safety Goal: Patient will be injury free during hospitalization Description: INTERVENTIONS: 1. Assess patient's risk for falls and implement fall prevention plan of care per policy 2. Provide and maintain a safe environment 3. Proper use of double Identifiers 4. Medication administration using the 5 rights 5. Hand hygiene 6. Specimens are labeled at the bedside 7. Instruct patient/ patient motor vehicle representative about use of safety devices 8. Include patient/ patient motor vehicle representative in decisions related to safety Outcome: Progressing Note: Evaluation of progress towards goal: Pt remains free from falls and injury, medicated using 5 rights, hand hygiene in and out of room, specimens labeled at bedside Problem: Infection Goal: Absence of infection during hospitalization Description: Interventions: 1. Assess and monitor for signs and symptoms of infection 2. Monitor lab/diagnostic results 3. Monitor all insertion sites i.e., indwelling lines, tubes and drains 4. Monitor endotracheal (as able) and nasal secretions for changes in amount and color 5. Administer medications as ordered 6. Instruct and encourage patient and family to use good hand hygiene technique 7. Identify and instruct patient/patient motor vehicle representative in use of appropriate isolation precautions for identified infection/symptoms 8. Provide and discuss with patient/patient motor vehicle representative on educational MDRO sheet 9. Encourage and monitor nutritional status daily and consult hospital ward clerk if indicated 10. Implement neutropenic guidelines as needed 11. Review exposure to history of communicable disease and recent travel history on admission 12. Encourage annual influenza vaccine 13. Encourage pneumonia vaccine Outcome: Progressing Note: Evaluation of progress towards goal: Afebrile, labs and VS monitored Problem: Knowledge Deficit Goal: Patient/patient motor vehicle representative demonstrates understanding of disease process, treatment plan, medications, and discharge instructions Description: INTERVENTIONS 1. Complete learning assessment and assess knowledge base 2. Provide teaching at level of understanding 3. Provide teaching via preferred learning method(s) Outcome: Progressing Note: Evaluation of progress towards goal: Patient updated & verbalizes understanding of POC along with medication education. Patient is encouraged to voice concerns or ask questions regarding care. Problem: Discharge Planning Goal: Discharge to post-acute care, other facility, or home with appropriate resources Description: Patient's goal is: INTERVENTIONS 1. Conduct assessment to determine patient/family and health care team treatment goals, and need for post-acute services based on payer coverage, community resources, and patient preferences, and barriers to discharge 2. Coordinate with Social work, Care Navigation, and Utilization Review to arrange appropriate level of services according to patient's needs based on patient preference and payer coverage in collaboration with the physician and health care team 3. Address psychosocial, clinical, and financial barriers to discharge as identified in assessment in conjunction with the patient/family and health care team 4. Consult appropriate ancillary services (i.e.. PT/OT/ST, etc) as needed 5. Communicate with and update the patient/family, physician, and health care team regarding progress on the discharge plan 6. Identify discharge learning needs (meds, wound care, etc). 7. Arrange for needed discharge transportation as appropriate Outcome: Progressing Note: Evaluation of progress towards goal: Treatment team working to resolve barriers prior to patient discharge and to achieve discharge goals of returning home, or being admitted to SNF . Problem: Moderate - High Risk Fall Score Description: Sepulveda Fall Score of =/> 25 or indicated by [facility] Assessment Goal: Patient should be free from fall Description: Interventions: 1. [place] to environment 2. Hourly rounds addressing the 4 P's (Pain, Positioning, Possessions, Potty) 3. Clear area of hazards (spills, clutter, electrical cords, unnecessary equipment) 4. Place equipment (bed & TV controls, call light, phone, urinal) within reach 5. Encourage patient to wear glasses and hearing aides as appropriate 6. Maintain bed in lowest position 7. Lock wheels on bed/wheelchair 8. Provide adequate lighting, including night light 9. Assess need for additional bedding, food/fluids, pain med's prior to sleep/routinely 10. Provide gripper slippers or personal non-skid footwear 11. Teach patient and patient motor vehicle representative to maintain environment for safety and engage in all aspects of fall prevention program 12. Remind patient to call for help before getting out of bed 13. Initiate bed/chair/exit alarms supportive devices as appropriate, (chair wedge, no-skid floor mat, raised edge mattress, hip protectors) 14. Locate patient bed assignment for optimal visualization 15. Evaluate and identify Safe Patient Handling Equipment needs 16. Provide supervision when out of bed or chair 17. Utilize gait belt as needed to assist with ambulation 18. Place adaptive equipment (cane, walker) within reach 19. Request patient motor vehicle representative bring adaptive equipment/mobility aids from home or obtain and provide as needed 20. Consult pharmacy regarding effects of med's affecting mobility, cognition, and alternatives 21. Obtain physician order for PT if risk factors associated with mobility are present 22. Obtain physician order for OT as appropriate 23. Utilize diversional activities 24. Educate patient and patient motor vehicle representative how to maintain a safe environment during visitation times (notify nurse prior to leaving bedside) 25. Consider appropriateness of medical or non-certified medical technician 26. Set up voiding schedule as appropriate (every 2 hours) Outcome: Progressing Note: Evaluation of progress towards goal: Patient remains free from falls and injuries. Patient's 5 P's addressed. Patient bed is in a locked position. Patient has call light for assistance. Problem: Pain Goal: Patient goal is pain score less than 4, able to rest, and participant in treatment plan as appropriate Description: INTERVENTIONS: 1. Encourage patient or legal motor vehicle representative to report early pain and ask for pain medicine when needed 2. Assess pain using appropriate pain scale and include the scale used when documenting 3. Administer analgesics based on type and severity of pain and evaluate response within appropriate time frame 4. Implement non-pharmacological measures as appropriate and evaluate response 5. Consider cultural and social influences on pain and pain management 6. Notify LIP if interventions ineffective or patient reports new pain 7. Monitor vital signs including pulse ox, end-tidal CO2 based on pain intervention 8. Reassess pain per policy 9. Teach patient or legal motor vehicle representative interventions for comforting Outcome: Progressing Note: Evaluation of progress towards goal: pt able to verbalize adequate comfort level using pain scale Problem: Safety Goal: Patient will be injury free during hospitalization Description: INTERVENTIONS: 1. Assess patient's risk for falls and implement fall prevention plan of care per policy 2. Provide and maintain a safe environment 3. Proper use of double Identifiers 4. Medication administration using the 5 rights 5. Hand hygiene 6. Specimens are labeled at the bedside 7. Instruct patient/ patient motor vehicle representative about use of safety devices 8. Include patient/ patient motor vehicle representative in decisions related to safety Outcome: Progressing Note: Evaluation of progress towards goal: pt remains free from injury, safe environment maintained, fall risk assessment complete Problem: Infection Goal: Absence of infection during hospitalization Description: Interventions: 1. Assess and monitor for signs and symptoms of infection 2. Monitor lab/diagnostic results 3. Monitor all insertion sites i.e., indwelling lines, tubes and drains 4. Monitor endotracheal (as able) and nasal secretions for changes in amount and color 5. Administer medications as ordered 6. Instruct and encourage patient and family to use good hand hygiene technique 7. Identify and instruct patient/patient motor vehicle representative in use of appropriate isolation precautions for identified infection/symptoms 8. Provide and discuss with patient/patient motor vehicle representative on educational MDRO sheet 9. Encourage and monitor nutritional status daily and consult hospital ward clerk if indicated 10. Implement neutropenic guidelines as needed 11. Review exposure to history of communicable disease and recent travel history on admission 12. Encourage annual influenza vaccine 13. Encourage pneumonia vaccine Outcome: Progressing Note: Evaluation of progress towards goal: Pt continuing IV antibiotics Problem: Knowledge Deficit Goal: Patient/patient motor vehicle representative demonstrates understanding of disease process, treatment plan, medications, and discharge instructions Description: INTERVENTIONS 1. Complete learning assessment and assess knowledge base 2. Provide teaching at level of understanding 3. Provide teaching via preferred learning method(s) Outcome: Progressing Note: Evaluation of progress towards goal: pt education complete Problem: Discharge Planning Goal: Discharge to post-acute care, other facility, or home with appropriate resources Description: Patient's goal is: INTERVENTIONS 1. Conduct assessment to determine patient/family and health care team treatment goals, and need for post-acute services based on payer coverage, community resources, and patient preferences, and barriers to discharge 2. Coordinate with Social work, Care Navigation, and Utilization Review to arrange appropriate level of services according to patient's needs based on patient preference and payer coverage in collaboration with the physician and health care team 3. Address psychosocial, clinical, and financial barriers to discharge as identified in assessment in conjunction with the patient/family and health care team 4. Consult appropriate ancillary services (i.e.. PT/OT/ST, etc) as needed 5. Communicate with and update the patient/family, physician, and health care team regarding progress on the discharge plan 6. Identify discharge learning needs (meds, wound care, etc). 7. Arrange for needed discharge transportation as appropriate Outcome: Progressing Note: Evaluation of progress towards goal: pt working towards discharge Problem: Moderate - High Risk Fall Score Description: Sepulveda Fall Score of =/> 25 or indicated by [facility] Assessment Goal: Patient should be free from fall Description: Interventions: 1. [place] to environment 2. Hourly rounds addressing the 4 P's (Pain, Positioning, Possessions, Potty) 3. Clear area of hazards (spills, clutter, electrical cords, unnecessary equipment) 4. Place equipment (bed & TV controls, call light, phone, urinal) within reach 5. Encourage patient to wear glasses and hearing aides as appropriate 6. Maintain bed in lowest position 7. Lock wheels on bed/wheelchair 8. Provide adequate lighting, including night light 9. Assess need for additional bedding, food/fluids, pain med's prior to sleep/routinely 10. Provide gripper slippers or personal non-skid footwear 11. Teach patient and patient motor vehicle representative to maintain environment for safety and engage in all aspects of fall prevention program 12. Remind patient to call for help before getting out of bed 13. Initiate bed/chair/exit alarms supportive devices as appropriate, (chair wedge, no-skid floor mat, raised edge mattress, hip protectors) 14. Locate patient bed assignment for optimal visualization 15. Evaluate and identify Safe Patient Handling Equipment needs 16. Provide supervision when out of bed or chair 17. Utilize gait belt as needed to assist with ambulation 18. Place adaptive equipment (cane, walker) within reach 19. Request patient motor vehicle representative bring adaptive equipment/mobility aids from home or obtain and provide as needed 20. Consult pharmacy regarding effects of med's affecting mobility, cognition, and alternatives 21. Obtain physician order for PT if risk factors associated with mobility are present 22. Obtain physician order for OT as appropriate 23. Utilize diversional activities 24. Educate patient and patient motor vehicle representative how to maintain a safe environment during visitation times (notify nurse prior to leaving bedside) 25. Consider appropriateness of medical or non-certified medical technician 26. Set up voiding schedule as appropriate (every 2 hours) Outcome: Progressing Note: Evaluation of progress towards goal: pt remains free from falls, call light within reach, non skid slippers worn, adequate lighting provided, hourly rounds complete, bed in lowest locked position, encouraged to call for help I was able to speak with the patient's over the phone. I asked the if he has any questions or concerns about his 's current health status and treatment plan. The tells me you are all a joke . I asked the again if he has any questions about the current health status and treatment plan. He tells me he does not have any questions. The also tells me that he has been trying to transfer his back to [facility] for the past 2 days but he has not been able successful with that. I advised the that if he iss not satisfied with the patient's healthcare here we can help him with transferring to another facility, unlikely [facility] would be an appropriate health care facility given the patient's current health status given her sepsis, AFib with RVR and elevated troponin. Encouraged the to talk to [facility] about why the patient was transferred to the [facility] in the 1st place. The hung up the phone without further discussion. DISCHARGE PLANNING NOTE Case discussed in daily transition rounds and chart reviewed by CN. Barriers to discharge include IV abx, cultures pending, monitoring HR, Heparin gtt, monitoring/replacing electrolytes, ID consult, Med-Onc consult Discharge Plan remains: return to [facility]. Referral sent. CN will continue to follow and is available should any further needs arise. - Anel Brown RN 12/24/23 10:03 AM Problem: Pain Goal: Patient goal is pain score less than 4, able to rest, and participant in treatment plan as appropriate Description: INTERVENTIONS: 1. Encourage patient or legal motor vehicle representative to report early pain and ask for pain medicine when needed 2. Assess pain using appropriate pain scale and include the scale used when documenting 3. Administer analgesics based on type and severity of pain and evaluate response within appropriate time frame 4. Implement non-pharmacological measures as appropriate and evaluate response 5. Consider cultural and social influences on pain and pain management 6. Notify LIP if interventions ineffective or patient reports new pain 7. Monitor vital signs including pulse ox, end-tidal CO2 based on pain intervention 8. Reassess pain per policy 9. Teach patient or legal motor vehicle representative interventions for comforting Note: Evaluation of progress towards goal: Patient's pain is assessed and documented with appropriate pain scale. Patient does not report pain thus far, pt encouraged to let RN know if she starts to develop pain. Problem: Safety Goal: Patient will be injury free during hospitalization Description: INTERVENTIONS: 1. Assess patient's risk for falls and implement fall prevention plan of care per policy 2. Provide and maintain a safe environment 3. Proper use of double Identifiers 4. Medication administration using the 5 rights 5. Hand hygiene 6. Specimens are labeled at the bedside 7. Instruct patient/ patient motor vehicle representative about use of safety devices 8. Include patient/ patient motor vehicle representative in decisions related to safety Note: Evaluation of progress towards goal: Patient will remain fall free. Q1 rounding. Bedside table, call light within reach. Bed alarm set. Problem: Infection Goal: Absence of infection during hospitalization Description: Interventions: 1. Assess and monitor for signs and symptoms of infection 2. Monitor lab/diagnostic results 3. Monitor all insertion sites i.e., indwelling lines, tubes and drains 4. Monitor endotracheal (as able) and nasal secretions for changes in amount and color 5. Administer medications as ordered 6. Instruct and encourage patient and family to use good hand hygiene technique 7. Identify and instruct patient/patient motor vehicle representative in use of appropriate isolation precautions for identified infection/symptoms 8. Provide and discuss with patient/patient motor vehicle representative on educational MDRO sheet 9. Encourage and monitor nutritional status daily and consult hospital ward clerk if indicated 10. Implement neutropenic guidelines as needed 11. Review exposure to history of communicable disease and recent travel history on admission 12. Encourage annual influenza vaccine 13. Encourage pneumonia vaccine Note: Evaluation of progress towards goal: Pt taking antibiotics per the MAR for prior infection. Pt is afebrile, vital signs and labs monitored for s/s of worsening infection. Problem: Knowledge Deficit Goal: Patient/patient motor vehicle representative demonstrates understanding of disease process, treatment plan, medications, and discharge instructions Description: INTERVENTIONS 1. Complete learning assessment and assess knowledge base 2. Provide teaching at level of understanding 3. Provide teaching via preferred learning method(s) Note: Evaluation of progress towards goal: Patient verbalizes understanding of care plan, treatment and medication. Patient understands current hospital stay. Care ongoing Problem: Discharge Planning Goal: Discharge to post-acute care, other facility, or home with appropriate resources Description: Patient's goal is: INTERVENTIONS 1. Conduct assessment to determine patient/family and health care team treatment goals, and need for post-acute services based on payer coverage, community resources, and patient preferences, and barriers to discharge 2. Coordinate with Social work, Care Navigation, and Utilization Review to arrange appropriate level of services according to patient's needs based on patient preference and payer coverage in collaboration with the physician and health care team 3. Address psychosocial, clinical, and financial barriers to discharge as identified in assessment in conjunction with the patient/family and health care team 4. Consult appropriate ancillary services (i.e.. PT/OT/ST, etc) as needed 5. Communicate with and update the patient/family, physician, and health care team regarding progress on the discharge plan 6. Identify discharge learning needs (meds, wound care, etc). 7. Arrange for needed discharge transportation as appropriate Note: Evaluation of progress towards goal: Treatment team working to resolve barriers prior to patient discharge and to achieve discharge goals of returning home, or being admitted to SNF . Problem: Glucose Imbalance Goal: Clinical indication of glucose balance is achieved Description: Patient's goal is: INTERVENTIONS 1. Monitor blood glucose levels as ordered 2. Administer medications as ordered 3. Notify physician of ineffective treatment plan Note: Evaluation of progress towards goal: Review of diabetes management perform. Patient is able to effectively perform glucose checks along with insulin administration Problem: Potential for Compromised Skin Integrity Goal: Skin integrity is maintained or improved Description: Patient's goal is: INTERVENTIONS 1. Perform initial skin assessment on admission and as needed 2. Turn patient every 2 hours and PRN 3. Relieve pressure to bony prominences 4. Avoid shearing 5. Keep skin clean and dry 6. Alternate a full bath with partial baths for elderly 7. Encourage use of lotion/moisturizer on skin 8. Monitor patient's hygiene practices 9. Float heels 10. Collaborate with interdisciplinary team and initiate plans and interventions as needed Note: Evaluation of progress towards goal: Patient will report altered sensation or pain at site of tissue impairment. Patient will demonstrate the understanding of plan to heal tissue and prevent injury. Describe measures to protect and heal the tissue, including wound care. -I was called by the RN that patient's was present at the bedside and is seemingly furious about why his is in the hospital and that he wants to move his to another facility. I went to the bedside and tried to have a detailed conversation with the patient's . Patient is altered and staring at the menon. She is also raising hand persistently and saying I need help . Patient's , Liborio, refused to shake hands with me. As per Liborio, he was not notified when her was transported yesterday to the ED, from [facility] facility. As per report, patient went to AFib with RVR and was hypotensive and hence the reason for ED transfer. I explained to the regarding concerns for sepsis and persistent AFib with RVR. I also explained him about patient being in BRANDEE over CKD stage 4. I also explained him that patient required 3 L bolus of IV fluids and maintenance fluids along with 3 different antibiotics and stress dose steroids to stabilize her blood pressure and to fight the bloodstream infection. Source of infection likely sacral wounds versus intra-abdominal source from underlying rectal cancer. I told that patient is currently needing 3 different antibiotics, IV vancomycin, cefepime and Flagyl as well as IV fluids. She also received 2 doses of IV digoxin 250 mcg as per Cardiology recommendations this morning for AFib with RVR. is unfazed about the patient's current medical condition. He states that he wants to take her to advanced specialty facility. I explained him, that if you want to take her to another hospital, it is going to be left against medical advice , as patient is still currently in sepsis requiring multiple antibiotics, IV fluids and she is also in AFib requiring IV digoxin. I explained him that patient is not medically stable to be discharged. At that point, charge nurse, Consuelo Dong, intervened and explained to the that in case of AMA discharge he will have to arrange his 's transportation by himself and hospital is not going to provide any assistance in that regard. At that point seemingly, became extremely furious with me and passed racist remarks against me, saying go back to your fucking [place] . He also said that he is going to file a lawsuit against the whole hospital and the entire care team including me, because they botched her 's case. I explained to the that I am not responsible for what happened previously, but since this patient has been under my care from yesterday she has made good improvement with regards to her sepsis and AFib. continues to threaten me with lawsuit. Patient unfortunately is altered mentally and was continuously raising her hands, asking for help. She was also clapping her hands intermittently during the entire conversation. When I asked the who is her 's POA, he just said I am her . He never clearly said who is her 's POA. I then stepped out of the room and told the charge nurse that patient is going to be AMA discharge. Discussed the whole case with my attending, Dr. Villagomez who is aware of this incident. UMANG ANTONIO MD, PGY-2, DEPARTMENT OF INTERNAL MEDICINE, [place], [place]. Associated attestation - Radha Villagomez MD - 12/24/2023 10:55 AM EDT I called 's phone number provided in the chart, no answer. Left a voicemail for him to call us back for any questions or concerns. Received a call about the patient tachypneic, short of breath. Into the bedside to evaluate patient. Patient much better with minimal intervention. No accessory muscle use. heart rate between 80-100. Cardiology following for AFib with RVR and patient receiving IV digoxin x2 doses. Saturating 100% on 2 L nasal cannula. Stat CXR shows stability compared to earlier images. Stat EKG shows AFib with RVR without other abnormalities. No concerns for fluid overload on exam. No pedal edema. Some bilateral lower zone wheezing audible but no crackles. Decreased breath sounds also appreciated on bilateral lower zones. Patient is alert and oriented x4. No concern for bloody stools on ostomy evaluation. Hemoglobin slightly down to 7.3 from 8.2 yesterday, likely dilutional in the absence of any overt bleeding. Xopenex p.r.n. ordered. Stool for OB and haptoglobin ordered. LDH is high given malignancy and sepsis. Hold aspirin Will continue heparin infusion for CVA prophylaxis in PAF (patient is a Prashant Vasc score of at least 5). Will continue with IV fluids and empirical antibiotics for now. Discussed with patient detail, we will continue to trend H&H Q 8. If any concern for persistent drop in hemoglobin, patient is agreeable to proceed ahead with CTA abdomen, even with the risk of probably needing temporary/permanent dialysis as she is CKD stage 4. H&H Q 8 Will continue to monitor UMANG ANTONIO MD, PGY-2, DEPARTMENT OF INTERNAL MEDICINE, [place], [place]. Associated attestation - Radha Villagomez MD - 12/23/2023 6:04 PM EDT Attending Note I saw the patient, I performed/participated in the critical/greenberg portions of the service, I was directly involved in the management and treatment plan of the patient. I reviewed the resident's note and agree with the findings and plan. Problem: Pain Goal: Patient goal is pain score less than 4, able to rest, and participant in treatment plan as appropriate Description: INTERVENTIONS: 1. Encourage patient or legal motor vehicle representative to report early pain and ask for pain medicine when needed 2. Assess pain using appropriate pain scale and include the scale used when documenting 3. Administer analgesics based on type and severity of pain and evaluate response within appropriate time frame 4. Implement non-pharmacological measures as appropriate and evaluate response 5. Consider cultural and social influences on pain and pain management 6. Notify LIP if interventions ineffective or patient reports new pain 7. Monitor vital signs including pulse ox, end-tidal CO2 based on pain intervention 8. Reassess pain per policy 9. Teach patient or legal motor vehicle representative interventions for comforting Outcome: Progressing Note: Evaluation of progress towards goal: Patient able to rest comfortably with repositioning. At this time pain goal is not met. Problem: Safety Goal: Patient will be injury free during hospitalization Description: INTERVENTIONS: 1. Assess patient's risk for falls and implement fall prevention plan of care per policy 2. Provide and maintain a safe environment 3. Proper use of double Identifiers 4. Medication administration using the 5 rights 5. Hand hygiene 6. Specimens are labeled at the bedside 7. Instruct patient/ patient motor vehicle representative about use of safety devices 8. Include patient/ patient motor vehicle representative in decisions related to safety Outcome: Progressing Note: Evaluation of progress towards goal: Patient remains free from injury, frequent repositioning, 2/4 side rails up, bed locked and in lowest position, and patient educated on using call light. Problem: Infection Goal: Absence of infection during hospitalization Description: Interventions: 1. Assess and monitor for signs and symptoms of infection 2. Monitor lab/diagnostic results 3. Monitor all insertion sites i.e., indwelling lines, tubes and drains 4. Monitor endotracheal (as able) and nasal secretions for changes in amount and color 5. Administer medications as ordered 6. Instruct and encourage patient and family to use good hand hygiene technique 7. Identify and instruct patient/patient motor vehicle representative in use of appropriate isolation precautions for identified infection/symptoms 8. Provide and discuss with patient/patient motor vehicle representative on educational MDRO sheet 9. Encourage and monitor nutritional status daily and consult hospital ward clerk if indicated 10. Implement neutropenic guidelines as needed 11. Review exposure to history of communicable disease and recent travel history on admission 12. Encourage annual influenza vaccine 13. Encourage pneumonia vaccine Outcome: Progressing Note: Evaluation of progress towards goal: Patient on iv antibiotics, all insertion sites are clean, dry, and intact with no signs of infection, proper standard precautions for infection prevention. Problem: Knowledge Deficit Goal: Patient/patient motor vehicle representative demonstrates understanding of disease process, treatment plan, medications, and discharge instructions Description: INTERVENTIONS 1. Complete learning assessment and assess knowledge base 2. Provide teaching at level of understanding 3. Provide teaching via preferred learning method(s) Outcome: Progressing Note: Evaluation of progress towards goal: Patient demonstrates understanding of disease, treatment plan, and medications. Problem: Discharge Planning Goal: Discharge to post-acute care, other facility, or home with appropriate resources Description: Patient's goal is: INTERVENTIONS 1. Conduct assessment to determine patient/family and health care team treatment goals, and need for post-acute services based on payer coverage, community resources, and patient preferences, and barriers to discharge 2. Coordinate with Social work, Care Navigation, and Utilization Review to arrange appropriate level of services according to patient's needs based on patient preference and payer coverage in collaboration with the physician and health care team 3. Address psychosocial, clinical, and financial barriers to discharge as identified in assessment in conjunction with the patient/family and health care team 4. Consult appropriate ancillary services (i.e.. PT/OT/ST, etc) as needed 5. Communicate with and update the patient/family, physician, and health care team regarding progress on the discharge plan 6. Identify discharge learning needs (meds, wound care, etc). 7. Arrange for needed discharge transportation as appropriate Outcome: Progressing Note: Evaluation of progress towards goal: Problem: Glucose Imbalance Goal: Clinical indication of glucose balance is achieved Description: Patient's goal is: INTERVENTIONS 1. Monitor blood glucose levels as ordered 2. Administer medications as ordered 3. Notify physician of ineffective treatment plan Outcome: Progressing Note: Evaluation of progress towards goal: Blood glucose monitored per order, patient has Dextrose 5% with 0.9NS iv fluids running per order. Goal: Patient's discharge needs are met Description: Patient's goal is: INTERVENTIONS 1. Assess patient for self-management skills 2. Encourage participation in diabetes management 3. Identify potential discharge barriers on admission and throughout hospital stay 4. Involve patient/S.O. in discharge planning process 5. Communicate referral to nurse educator as appropriate 6. Communicate referral to hospital ward clerk as appropriate 7. Collaborate with case management/clinical social worker for discharge needs Outcome: Progressing Note: Evaluation of progress towards goal: Patients needs collaborated with case management and interdisciplinary team for discharge planning Problem: Potential for Compromised Skin Integrity Goal: Skin integrity is maintained or improved Description: Patient's goal is: INTERVENTIONS 1. Perform initial skin assessment on admission and as needed 2. Turn patient every 2 hours and PRN 3. Relieve pressure to bony prominences 4. Avoid shearing 5. Keep skin clean and dry 6. Alternate a full bath with partial baths for elderly 7. Encourage use of lotion/moisturizer on skin 8. Monitor patient's hygiene practices 9. Float heels 10. Collaborate with interdisciplinary team and initiate plans and interventions as needed Outcome: Progressing Note: Evaluation of progress towards goal: Patient turned every 2 hours, pillows under bony prominences to elevate, skin clean and dry. Goal: Patient's nutritional intake is adequate Description: Patient's goal is: INTERVENTIONS 1. Assess and monitor food intake and supplements, patient food preferences, nausea, vomiting, labs, oral cavity (gums, teeth, tongue, mucosa), proper denture fit, and cultural beliefs 2. Monitor for signs of hypoglycemia and hyperglycemia 3. Collaborate with interdisciplinary team and initiate plan and interventions as ordered 4. Monitor patient's weight 5. Assist patient with meals/food selection 6. Assist patient with eating 7. Allow adequate time for meals 8. Provide pleasant environment during mealtime 9. Increase social contact during mealtimes 10. Plan activities to conserve energy 11. Encourage/perform oral hygiene as appropriate 12. Encourage patient to take dietary supplement as ordered 13. Collaborate with clinical hospital ward clerk 14. Include patient/ patient's motor vehicle representative in decisions related to nutrition Outcome: Progressing Note: Evaluation of progress towards goal: Patient is NPO at this time, ACHS blood sugar checks. Problem: Urinary Incontinence Goal: Perineal skin integrity is maintained or improved Description: INTERVENTIONS 1. Assess genitourinary system, perineal skin, labs (urinalysis), and history of incontinence to include past management, aggravating, and alleviating factors 2. Keep skin clean and dry 3. Apply skin protectant 4. Develop skin care regimen 5. Provide privacy when changing patients incontinence device to maintain their dignity 6. Consider placing an indwelling catheter 7. Collaborate with interdisciplinary team and initiate plans and interventions as needed Outcome: Progressing Note: Evaluation of progress towards goal: Patient has indwelling dasilva catheter, skin around is clean, dry with CHG dasilva care per protocol. Problem: Moderate - High Risk Fall Score Description: Sepulveda Fall Score of =/> 25 or indicated by [facility] Assessment Goal: Patient should be free from fall Description: Interventions: 1. [place] to environment 2. Hourly rounds addressing the 4 P's (Pain, Positioning, Possessions, Potty) 3. Clear area of hazards (spills, clutter, electrical cords, unnecessary equipment) 4. Place equipment (bed & TV controls, call light, phone, urinal) within reach 5. Encourage patient to wear glasses and hearing aides as appropriate 6. Maintain bed in lowest position 7. Lock wheels on bed/wheelchair 8. Provide adequate lighting, including night light 9. Assess need for additional bedding, food/fluids, pain med's prior to sleep/routinely 10. Provide gripper slippers or personal non-skid footwear 11. Teach patient and patient motor vehicle representative to maintain environment for safety and engage in all aspects of fall prevention program 12. Remind patient to call for help before getting out of bed 13. Initiate bed/chair/exit alarms supportive devices as appropriate, (chair wedge, no-skid floor mat, raised edge mattress, hip protectors) 14. Locate patient bed assignment for optimal visualization 15. Evaluate and identify Safe Patient Handling Equipment needs 16. Provide supervision when out of bed or chair 17. Utilize gait belt as needed to assist with ambulation 18. Place adaptive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 Bedside glucose 126 (H) 65 - 99 mg/dL Bedside Glucose *Place/Obtain serum glucose if >500(>600 MRH) per glucometer. Collection Time: 12/27/23 12:08 PM Result Value Ref Range Bedside glucose 119 (H) 65 - 99 mg/dL Hemoglobin and hematocrit, blood Collection Time: 12/27/23 1:36 PM Result Value Ref Range Hemoglobin 7.8 (L) 11.7 - 15.5 g/dL Hematocrit 23.8 (L) 35 - 47 % Bedside Glucose *Place/Obtain serum glucose if >500(>600 MRH) per glucometer. Collection Time: 12/27/23 4:41 PM Result Value Ref Range Bedside glucose 93 65 - 99 mg/dL Hemoglobin and hematocrit, blood Collection Time: 12/27/23 9:05 PM Result Value Ref Range Hemoglobin 8.0 (L) 11.7 - 15.5 g/dL Hematocrit 23.8 (L) 35 - 47 % Comprehensive metabolic panel Collection Time: 12/28/23 5:15 AM Result Value Ref Range Sodium 140 134 - 146 mmol/L Potassium, Bld 3.5 3.5 - 5.0 mmol/L Chloride 110 (H) 98 - 109 mmol/L CO2 21 (L) 22 - 32 mmol/L Anion gap 9 5 - 15 mmol/L BUN 9 5 - 27 mg/dL Creatinine 0.91 0.40 - 1.00 mg/dL Glucose 86 65 - 99 mg/dL Calcium 8.4 (L) 8.5 - 10.5 mg/dL Total Protein 5.5 (L) 6.0 - 8.0 g/dL Albumin 3.7 3.2 - 5.3 g/dL Alkaline Phosphatase 61 39 - 130 U/L AST 14 0 - 41 U/L ALT 12 0 - 31 U/L Total bilirubin 0.5 0.3 - 1.2 mg/dL eGFR (CKD-EPI)non-race dependent 70 >59 ml/min/1.73sq.m CBC auto differential Collection Time: 12/28/23 6:00 AM Result Value Ref Range White Blood Cells 12.1 (H) 4.0 - 11.0 X10E9/L RBC count 2.70 (L) 3.80 - 5.20 X10E12/L Hemoglobin 8.1 (L) 11.7 - 15.5 g/dL Hematocrit 24.4 (L) 35 - 47 % MCV 90 80 - 100 fL MCH 30.2 27 - 34 pg MCHC 33.4 32 - 36 g/dL RDW 17.8 (H) 11.5 - 15.0 % Platelets 160 150 - 450 X10E9/L MPV 8.8 7 - 12 fL % neutrophils 78.5 % % lymphocytes 12.2 % % monocytes 7.3 % % eosinophils 1.4 % % Basophils 0.6 % Neutrophils Absolute (A) 9.5 (H) 1.5 - 6.6 X10E9/L Lymphocytes Absolute 1.5 1.0 - 3.5 X10E9/L Monocytes Absolute 0.9 0 - 0.9 X10E9/L Eosinophils Absolute 0.2 0.0 - 0.4 X10E9/L Basophils Absolute 0.1 0.0 - 0.2 X10E9/L Comprehensive metabolic panel Collection Time: 12/28/23 6:00 AM Result Value Ref Range Sodium 138 134 - 146 mmol/L Potassium, Bld 4.9 3.5 - 5.0 mmol/L Chloride 110 (H) 98 - 109 mmol/L CO2 22 22 - 32 mmol/L Anion gap 6 5 - 15 mmol/L BUN 12 5 - 27 mg/dL Creatinine 0.99 0.40 - 1.00 mg/dL Glucose 102 (H) 65 - 99 mg/dL Calcium 7.0 (L) 8.5 - 10.5 mg/dL Total Protein 5.4 (L) 6.0 - 8.0 g/dL Albumin 2.3 (L) 3.2 - 5.3 g/dL Alkaline Phosphatase 152 (H) 39 - 130 U/L AST 18 0 - 41 U/L ALT 13 0 - 31 U/L Total bilirubin 0.5 0.3 - 1.2 mg/dL eGFR (CKD-EPI)non-race dependent 63 >59 ml/min/1.73sq.m Radiology: MR pelvis with and without contrast Result Date: 12/28/2023 CLINICAL INFORMATION: Rectal adenocarcinoma. Decubitus ulcer. COMPARISON: None TECHNIQUE: Multisequence multiplanar MRI of the pelvis without and with contrast. PROTOCOL: Rectal cancer staging FINDINGS: Study is profoundly motion degraded, nearly nondiagnostic evaluate muscularis propria, circumferential resection margin, etc. of biopsy-proven rectal adenocarcinoma. Best attempt is made to characterize low rectal neoplasm otherwise. PRIMARY TUMOR: LOCATION, MORPHOLOGY, AND CHARACTERISTICS Distance to the anal verge: 3.1 cm Distance to the top of the sphincter complex/anorectal junction: Likely abuts . Relationship to the anterior peritoneal reflection: Below Craniocaudal length of tumor: Approximately 4.2 cm Circumferential location: 3 to 10 o'clock Morphology: Annular Mucinous: No A tract of abnormal tissue extends from the 12:00 position of the neoplasm posterior lip towards the coccyx. Large soft tissue defect over the sacrococcygeal region measures at least 4 cm. Normal diffusion restriction seen in this region. Abnormal enhancement throughout the soft tissues MR-T category: Likely T3, see below FOR LOW RECTAL TUMORS: Invasion of the anal sphincter complex: Invades internal sphincter and extends into intersphincteric space. This is thought present on series 9 image is 40 and 42. FOR T3 TUMORS ONLY - Circumferential Resection Margin (CRM): Shortest distance of tumor to MRF (or anticipated CRM): Less than 2 mm along the right margin (9, 40/50). Extramural venous invasion (EMVI): None LYMPH NODES Mesorectal/superior rectal lymph nodes and/or tumor deposits: N category: None definitively seen Extra-mesorectal lymph nodes: Number of suspicious lymph nodes: No definitive is seen. OTHER: Ventral body wall edema. Free fluid throughout the pelvis. Dasilva catheter in the bladder. IMPRESSION: Profoundly limited due to motion. Best attempt is made to characterize. 1. MR stage: Likely T 3, N -, Mx. Suspected invasion of the upper anal canal, potentially intersphincteric space. Neoplasm thought to abut expected right CRM. 2. Large decubitus ulcer with suspected coccygeal osteomyelitis (though dedicated MRI could evaluate). Potential fistula/sinus tract extending from the coccyx to the aforementioned neoplasm 3. Pelvic free fluid. Finalized by Krystal Crowley MD on 12/28/2023 8:45 AM Discharge Instructions Disposition: Discharge to LTAC Condition: Stable Activity: activity as tolerated Diet: Adult diet Regular Texture Adult diet Laisha Felix, CARDIAC CATH TECHNICIAN-CLASS A LINEMAN [address], [facility] [address] [facility] [id number] Follow up in 2 week(s) Pablo Barnes MD [address] [facility] [address] Follow up Carol Akins PA-C [address] [facility] [id number] Justin Condon MD [address] [facility] [address] [facility] Pulmonary [facility] [id number] Schedule an appointment as soon as possible for a visit in 1 month(s) To evaluate for EBUS Information Provided to the Patient: Patient given copy of Discharge Instructions, patient hospital stay was discussed. No special instructions. I have spent 50 minutes coordinating and preparing this discharge. I have discussed the patient's hospitalization course, treatment plan and follow up instructions with the patient and her at the bedside. I have answered all the patient's questions. Electronically signed by: BRANDON CARRILLO MD [facility], Department of Internal Medicine 12/28/23 10:27 AM documented in this encounter [facility] [employer] [facility] 12-28-2023 History of Present illness Narrative Images from the original note were not included. IP Day: 6 Subjective: Resting in bed this morning, no specific complaints. Vital signs stable, room air Objective: Vitals: 12/28/23 0722 BP: 107/80 Pulse: 92 Resp: 18 Temp: 36.7 C (98.1 F) SpO2: 100% Temp: [36.6 C (97.8 F)-37.1 C (98.7 F)] 36.7 C (98.1 F) Pulse: [71-110] 92 Resp: [17-20] 18 BP: (107-143)/(50-115) 107/80 SpO2: [95 %-100 %] 100 % O2 Device: None (Room air) O2 Flow Rate (L/min): [0 L/min] 0 L/min Allergies Allergen Reactions Oats Intake/Output last 3 shifts: I/O last 3 completed shifts: In: 1907 [I.V.:1907] Out: 2425 [Urine:2100; Stool:325] Intake/Output this shift: No intake/output data recorded. Dietary Orders (From admission, onward) Start Ordered 12/25/23 1151 Adult diet Regular Texture Diet effective now Question: Diet Type: Answer: Regular Texture 12/25/23 1150 Physical Exam General Appearance: Awake, Alert & Oriented x3, No Acute Distress. Neck: Trachea Midline, No elevated Jugular Venous Pressure. Pulmonary: labored breathing. No expiratory wheeze. Cardiac: Regular rhythm and rate. Abdomen: Soft, right upper quadrant and left lower quadrant slightly tender, non-distended, no rebound, no guarding. Midline wound healthy. Extremity: Full Range of Motion, No edema Bilateral Upper Extremities Skin: Dry. Non-icteric. No Rash. Eyes: Pupils Equal and Round, Non-icteric Laboratory Data: Lab Results Component Value Date WBC 12.1 (H) 12/28/2023 HGB 8.1 (L) 12/28/2023 HCT 24.4 (L) 12/28/2023 MCV 90 12/28/2023 PLT 160 12/28/2023 Lab Results Component Value Date GLU 102 (H) 12/28/2023 CALCIUM 7.0 (L) 12/28/2023 K 4.9 12/28/2023 CO2 22 12/28/2023 CL 110 (H) 12/28/2023 BUN 12 12/28/2023 CREATININE 0.99 12/28/2023 No results found for: AMYLASE Lab Results Component Value Date LIPASE 135 (H) 12/22/2023 Lab Results Component Value Date ALT 13 12/28/2023 AST 18 12/28/2023 ALKPHOS 152 (H) 12/28/2023 Lab Results Component Value Date INR 1.2 (H) 12/22/2023 INR 1.2 (H) 11/08/2023 INR 1.3 (H) 11/07/2023 PROTIME 13.8 (H) 12/22/2023 PROTIME 14.0 (H) 11/08/2023 PROTIME 14.7 (H) 11/07/2023 aspirin, 81 mg, oral, Daily atorvastatin, 20 mg, oral, Nightly doxycycline, 100 mg, oral, BID metoprolol tartrate, 100 mg, oral, BID pantoprazole, 40 mg, oral, QAM AC sodium hypochlorite, 1 Application, topical, BID acetaminophen calcium gluconate calcium gluconate calcium gluconate dextrose dextrose 5 % in water dextrose 50 % in water (D50W) glucagon (human recombinant) iohexoL levalbuterol magnesium sulfate magnesium sulfate metoprolol (LOPRESSOR) IV ondansetron potassium chloride OR potassium chloride sodium chloride sodium chloride sodium chloride 0.9 % sodium chloride Assessment: Harris Castrejon is a 68 y.o. female whom is Hospital Day: 7 with significant past medical history who was recently in the ICU in October of 2023 secondary to GI bleed requiring exploratory laparotomy with small-bowel resection and colostomy creation. 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 Here after becoming tachycardic and hypotensive during MRI. Hemoglobin Stable Plan: Follow up pelvic MRI, appreciate oncology recommendations. Patient is poor surgical candidate, no Plans for any intervention from colorectal standpoint. Hold heparin drip for now due to rectal bleeding Monitor hemoglobin q8h Okay for regular diet from surgery standpoint Wound care per wound care team Pain and nausea control as needed Rest of care per primary Jose Ferguson MD General Surgery Resident, PGY-2 Colorectal Surgery 6a-6p pager # [phone] 6p-6a pager #[phone] Associated attestation - Conor Gomez MD - 12/28/2023 9:28 AM EDT Attending Attestation: I saw the patient. I performed the critical/greenberg portions of the service. I was directly involved in the management and treatment plan of the patient. I reviewed the resident's note. Additional Notes/Findings: MRI performed. Patient irritated but no specific complaints. MRI pending Images from the original note were not included. [facility] Gurpreet Nagy M.D. Racquel Langston M.D. Sonya Ruelas M.D. Sunni Stack M.D. Tara Funes, CARDIAC CATH TECHNICIAN-[employer] Keron Stahl, CARDIAC CATH TECHNICIAN-[employer] Tiffanie Segal, CARDIAC CATH TECHNICIAN-[facility] Rufina Dowd, CARDIAC CATH TECHNICIAN-[facility] JUAN Brown M.D. Tc Ridley M.D. Reinaldo Felder M.D. Alfred Adams M.D. Carole Gaviria, CARDIAC CATH TECHNICIAN-[employer] Jenny Calhoun, CARDIAC CATH TECHNICIAN-[employer] Yeny Medrano, CARDIAC CATH TECHNICIAN-[facility] Mendy Rodrigues, CARDIAC CATH TECHNICIAN-[facility] PROGRESS NOTE Subjective: Currently, patient is resting in bed, is at bedside. We discussed imaging which showed her disease as a T3 staging. We discussed that in her current condition, she is not eligible for treatment. She will need to improve clinically before we can offer any systemic treatment. Patient will discharge today and will follow up with Dr. Barnes outpatient. No questions at this time. HPI: Harris Castrejon is a 68 y.o. female who appears somewhat altered, alert to self/place, unsure of date states it is 2003. She is sleepy through my examination however arouses easily to name. States she has been having abdominal pain some mild shortness of breath along with fatigue. Otherwise patient is a poor historian. According to chart review patient has a history of AFib post ablation in 2020, hypertension, CKD stage IV, pressure ulcer post debridement, osteomyelitis, CHF with an ejection fraction between 40 and 45%, GI bleed in October of 2023 which she underwent ex lap with small-bowel resection and colostomy. Patient presented to the emergency department after becoming tachycardic during imaging outpatient. Patient is currently being treated for sepsis, AFib RVR. Hematology oncology was consulted for rectal cancer. Objective Physical Examination: Vitals: BP 122/79 Pulse 87 Temp 36.6 C (97.8 F) (Oral) Resp 18 Ht 162.6 cm (5' 4 ) Wt 119.3 kg (263 lb 0.1 oz) SpO2 99% BMI 45.15 kg/m Physical Exam Vitals and nursing note reviewed. Constitutional: General: She is not in acute distress. Appearance: Normal appearance. HENT: Head: Normocephalic and atraumatic. Right Ear: External ear normal. Left Ear: External ear normal. Nose: Nose normal. Mouth/Throat: Mouth: Mucous membranes are moist. Eyes: Conjunctiva/sclera: Conjunctivae normal. Pupils: Pupils are equal, round, and reactive to light. Cardiovascular: Rate and Rhythm: Normal rate and regular rhythm. Pulses: Normal pulses. Heart sounds: Normal heart sounds. No murmur heard. No friction rub. No gallop. Pulmonary: Effort: Pulmonary effort is normal. Breath sounds: Normal breath sounds. Abdominal: General: Abdomen is flat. There is no distension. Palpations: There is no mass. Musculoskeletal: General: Normal range of motion. Cervical back: Normal range of motion and neck supple. Right lower leg: No edema. Left lower leg: No edema. Skin: General: Skin is warm and dry. Coloration: Skin is not jaundiced. Findings: No bruising or rash. Neurological: General: No focal deficit present. Mental Status: She is alert and oriented to person, place, and time. Cranial Nerves: No cranial nerve deficit. Sensory: No sensory deficit. Psychiatric: Mood and Affect: Mood normal. Behavior: Behavior normal. Thought Content: Thought content normal. Judgment: Judgment normal. Recent Labs Recent Results (from the past 24 hour(s)) Bedside Glucose *Place/Obtain serum glucose if >500(>600 MRH) per glucometer. Collection Time: 12/27/23 9:04 AM Result Value Ref Range Bedside glucose 126 (H) 65 - 99 mg/dL Bedside Glucose *Place/Obtain serum glucose if >500(>600 MRH) per glucometer. Collection Time: 12/27/23 12:08 PM Result Value Ref Range Bedside glucose 119 (H) 65 - 99 mg/dL Hemoglobin and hematocrit, blood Collection Time: 12/27/23 1:36 PM Result Value Ref Range Hemoglobin 7.8 (L) 11.7 - 15.5 g/dL Hematocrit 23.8 (L) 35 - 47 % Bedside Glucose *Place/Obtain serum glucose if >500(>600 MRH) per glucometer. Collection Time: 12/27/23 4:41 PM Result Value Ref Range Bedside glucose 93 65 - 99 mg/dL Hemoglobin and hematocrit, blood Collection Time: 12/27/23 9:05 PM Result Value Ref Range Hemoglobin 8.0 (L) 11.7 - 15.5 g/dL Hematocrit 23.8 (L) 35 - 47 % Comprehensive metabolic panel Collection Time: 12/28/23 5:15 AM Result Value Ref Range Sodium 140 134 - 146 mmol/L Potassium, Bld 3.5 3.5 - 5.0 mmol/L Chloride 110 (H) 98 - 109 mmol/L CO2 21 (L) 22 - 32 mmol/L Anion gap 9 5 - 15 mmol/L BUN 9 5 - 27 mg/dL Creatinine 0.91 0.40 - 1.00 mg/dL Glucose 86 65 - 99 mg/dL Calcium 8.4 (L) 8.5 - 10.5 mg/dL Total Protein 5.5 (L) 6.0 - 8.0 g/dL Albumin 3.7 3.2 - 5.3 g/dL Alkaline Phosphatase 61 39 - 130 U/L AST 14 0 - 41 U/L ALT 12 0 - 31 U/L Total bilirubin 0.5 0.3 - 1.2 mg/dL eGFR (CKD-EPI)non-race dependent 70 >59 ml/min/1.73sq.m CBC auto differential Collection Time: 12/28/23 6:00 AM Result Value Ref Range White Blood Cells 12.1 (H) 4.0 - 11.0 X10E9/L RBC count 2.70 (L) 3.80 - 5.20 X10E12/L Hemoglobin 8.1 (L) 11.7 - 15.5 g/dL Hematocrit 24.4 (L) 35 - 47 % MCV 90 80 - 100 fL MCH 30.2 27 - 34 pg MCHC 33.4 32 - 36 g/dL RDW 17.8 (H) 11.5 - 15.0 % Platelets 160 150 - 450 X10E9/L MPV 8.8 7 - 12 fL % neutrophils 78.5 % % lymphocytes 12.2 % % monocytes 7.3 % % eosinophils 1.4 % % Basophils 0.6 % Neutrophils Absolute (A) 9.5 (H) 1.5 - 6.6 X10E9/L Lymphocytes Absolute 1.5 1.0 - 3.5 X10E9/L Monocytes Absolute 0.9 0 - 0.9 X10E9/L Eosinophils Absolute 0.2 0.0 - 0.4 X10E9/L Basophils Absolute 0.1 0.0 - 0.2 X10E9/L Inpatient scheduled medications: Current Facility-Administered Medications: acetaminophen (TYLENOL EXTRA STRENGTH) tablet 500 mg, 500 mg, oral, Q6H PRN, Lexx Medina MD, 500 mg at 12/28/23 0055 aspirin EC tablet 81 mg, 81 mg, oral, Daily, Umang Antonio MD, 81 mg at 12/27/23 1152 atorvastatin (LIPITOR) tablet 20 mg, 20 mg, oral, Nightly, Maegan Sinha MD, 20 mg at 12/26/23 210 calcium gluconate 3,000 mg in sodium chloride 0.9 % 100 mL IVPB, 3,000 mg, intravenous, PRN, Lexx Medina MD calcium gluconate 4,000 mg in sodium chloride 0.9 % 250 mL IVPB, 4,000 mg, intravenous, PRN, Lexx Medina MD calcium gluconate IVPB 2000 mg/100 mL (20 mg/mL premix), 2,000 mg, intravenous, PRN, Lexx Medina MD, Stopped at 12/26/23 1252 dextrose (GLUTOSE) 40 % gel 15 g, 15 g, oral, PRN, Lexx Medina MD dextrose 5 % (D5W) infusion, 100 mL/hr, intravenous, Continuous PRN, Lexx Medina MD dextrose 5 % in water 1,000 mL with potassium chloride 40 mEq, sodium bicarbonate 8.4 % (1 mEq/mL) 50 mEq infusion, 75 mL/hr, intravenous, Continuous, Umang Antonio MD, Last Rate: 75 mL/hr at 12/28/23 0058, 75 mL/hr at 12/28/23 0058 dextrose 50 % in water (D50W) 50% solution 25 mL, 25 mL, intravenous, PRN, Lexx Medina MD, 25 mL at 12/22/23 1823 doxycycline (VIBRAMYCIN) capsule 100 mg, 100 mg, oral, BID, Robert García MD, 100 mg at 12/27/23 1152 glucagon HCL injection 1 mg, 1 mg, intramuscular, PRN, Lexx Medina MD iohexoL (OMNIPAQUE) 300 mg iodine/mL 125 mL, 125 mL, intravenous, Once in imaging, Salbador Dutton DO levalbuterol (XOPENEX) nebulizer solution 1.25 mg, 1.25 mg, nebulization, Q4H PRN, Lexx Medina MD, 1.25 mg at 12/23/23 1431 magnesium sulfate IVPB 2000 mg/50 mL in iso-osmotic water (40 mg/mL premix), 2,000 mg, intravenous, PRN, Lexx Medina MD magnesium sulfate IVPB 4000 mg/100 mL in iso-osmotic water (40 mg/mL premix), 4,000 mg, intravenous, PRN, Lexx Medina MD metoprolol (LOPRESSOR) injection 5 mg, 5 mg, intravenous, Q6H PRN, Zayra Seals, DOLORES-[employer]EMAN, 5 mg at 12/23/23 1531 metoprolol tartrate (LOPRESSOR) tablet 100 mg, 100 mg, oral, BID, Maegan Sinha MD, 100 mg at 12/27/23 1152 ondansetron (PF) (ZOFRAN) injection 4 mg, 4 mg, intravenous, Q6H PRN, Lexx Medina MD, 4 mg at 12/24/231955 pantoprazole (PROTONIX) EC tablet 40 mg, 40 mg, oral, QAM AC, Lexx Medina MD, 40 mg at 12/28/23 0546 potassium chloride (K-TAB,KLOR-CON) CR tablet 40 mEq, 40 mEq, oral, PRN OR potassium chloride (KAYCIEL) 20 mEq/15 mL solution 30-50 mEq, 30-50 mEq, oral, PRN, Lexx Medina MD sodium chloride 0.9 % flush 10 mL, 10 mL, intravenous, Once in imaging, Salbador Dutton, DO sodium chloride 0.9 % flush bag, 25 mL, intravenous, PRN, Lexx Medina MD sodium chloride 0.9 % infusion, 20 mL/hr, intravenous, Continuous PRN, Lexx Medina MD, Last Rate: 20 mL/hr at 12/26/232143, Restarted at 12/26/232143 sodium chloride 0.9 % radiology injection, 80 mL, intravenous, Once in imaging, Salbador Dutton, DO sodium hypochlorite (DAKIN'S 1/4 STRENGTH) 0.125 % external solution 1 Application, 1 Application, topical, BID, Felisa Stephens MD, 1 Application at 12/28/23 0546 Diagnosis Problem list: Patient Active Problem List Diagnosis Cerumen debris on tympanic membrane of both ears Typical atrial flutter ([facility]) Coronary artery disease involving [place] coronary artery of [place] heart without angina pectoris Tachycardia induced cardiomyopathy ([facility]) Type 2 diabetes mellitus with circulatory disorder, without long-term current use of insulin ([facility]) Other hyperlipidemia Paroxysmal atrial fibrillation ([facility]) BRANDEE (acute kidney injury) ([facility]) Hyperkalemia Bilateral lower extremity edema Systolic and diastolic CHF, acute ([facility]) Acute kidney injury ([facility]) Acute UTI (urinary tract infection) Skin ulcer of sacrum ([facility]) Altered mental status Hypokalemia CKD (chronic kidney disease) stage 4, GFR 15-29 ml/min ([facility]) Bacteremia Respiratory distress Myoclonus Pressure injury of sacral region, stage 4 (CMS-HCC) Anemia Anemia, blood loss ISTAP type 2 skin tear of right forearm ISTAP type 3 skin tear of right forearm Moderate protein-calorie malnutrition (CMS-HCC) Septic shock (CMS-HCC) Adenocarcinoma of rectum (CMS-HCC) Assessment/Plan Impression: #. Distal rectal mass, with biopsy from 11/28/23 noting adenocarcinoma - EGD/colonoscopy 10/23/2023 - 10/25/2023 EUA with flexible sigmoidoscopy and biopsy of rectal mass - 11/07/23 ex lap with SBR, anastomosis, and end sigmoid colostomy creation with intra-operative evidence of bowel ischemia - Repeat flexible sigmoidoscopy with biopsy on 11/28/2023 for presumed GI bleed with rectal mass, previous biopsies were non diagnostic - 11/28/23 Surgical Pathology: Final Pathologic Diagnosis: Rectal mass, biopsies: Fragments of tubulovillous adenoma. Rectal mass #2, excisional biopsy: Fragments of ADENOCARCINOMA, at least intramucosal carcinoma. Deeper invasion cannot be excluded. - 12/21 CT Chest: Slight increased size of a precarinal mediastinal node which measures 12 mm, previously 9 mm. Change in size could be reactive or metastatic, continued follow-up recommended. - 12/21 CT A/P: Nonspecific thickening of the rectum/anal canal Plan: MRI rectum complete showing staging as T3Mx Patient deemed poor candidate for surgical intervention, radiation therapy, and chemotherapy. Given the patient's continued decline in condition, patient would need to improve significantly to receive any meaningful systemic therapy for her malignancy. She will discharge today and return to [facility]. She'll follow up with Dr. Barnes outpatient to continue treatment discussions. Oncology will sign off. Please contact us with questions. Code Status: Full Code Further medical management of comorbid conditions per primary team and consulting services, appreciate assistance The patient was seen and examined and all plans and orders were agreed upon with the physician on service today, Dr. Felder. Keron Stahl, CARDIAC CATH TECHNICIAN-[employer] [facility] [address] [place] [address] [employer] Consult Chat is my preferred mode of contact. For after hours (evening, weekends, holidays) Hematology Oncology needs, please call the representative government relations service [phone]. Please ask for the MD representative government relations. December 28, 2023, 7:20 AM I, Reinaldo Felder MD, personally performed the face to face diagnostic evaluation on this patient. I have reviewed the CHALINO's History, Exam, and MDM and agree with the assessment and plan as written. Images from the original note were not included. [facility] Progress Note 12/27/2023 Patient Name: Harris Castrejon : 1955 Hospital Day: 6 SUBJECTIVE Follow-up for tachycardia. The patient seen and examined. No acute events over night. Unable to complete CTA coronaries because heart rate was not at goal. Unable to complete MRI pelvis this morning because the patient refused and was not able to tolerate the MRI machine noise. She refused headphones despite receiving Xanax before the MRI. Her mentation has been fluctuating but she is alert and oriented for most part. Past Medical History: Diagnosis Date Arrhythmia Hypertension Injury of back Disc L4 and L5 Obesity Respiratory distress 10/19/2023 Septic shock ([facility]) 12/22/2023 Systolic and diastolic CHF, acute ([facility]) 09/03/2023 Visual impairment Past Surgical History: Procedure Laterality Date APPLICATION WOUND VAC N/A 11/07/2023 Performed by Mitra Crowell MD at [facility] Cardiac catheterization 02/16/2021 Performed by Kelli Su MD at [facility] CARDIAC CATH LABS Caval Tricuspid Isthmus RFA, Carto w/ICE N/A 03/21/2021 Performed by Lurdes Weinberg MD at [facility] HR (EP) COLONOSCOPY POLYPECTOMY N/A 10/23/2023 Performed by Soy Talamantes MD at [facility] Coronary angiogram and left ventricular gram/pressure N/A 02/16/2021 Performed by Kelli Su MD at [facility] CARDIAC CATH LABS Coronary fractional flow reserve N/A 02/16/2021 Performed by Kelli Su MD at [facility] CARDIAC CATH LABS CREATION OF END COLOSTOMY N/A 11/07/2023 Performed by Mitra Crowell MD at [facility] ESOPHAGOGASTRODUODENOSCOPY DIAGNOSTIC N/A 10/23/2023 Performed by Soy Talamantes MD at [facility] EXAM UNDER ANESTHESIA WITH BRECTAL BIOPSY N/A 11/28/2023 Performed by Mitra Crowell MD at [facility] EXAM UNDER ANESTHESIA/RECTAL MASS BIOPSY N/A 10/25/2023 Performed by Mitra Crowell MD at [facility] FLEXIBLE SIGMOIDOSCOPY N/A 10/25/2023 Performed by Mitra Crowell MD at [facility] FLEXIBLE SIGMOIDOSCOPY WITH BIOPSY N/A 11/28/2023 Performed by Mitra Crowell MD at [facility] INSCISIONAL DEBRIDEMENT SACRUM N/A 10/20/2023 Performed by Magdi Matthew MD at [facility] INSERT ARTERIAL LINE 11/05/2023 INSERT ARTERIAL LINE 11/07/2023 Intravascular pressure measurement first vessel each additional vessel (fractional flow reserve) N/A 02/16/2021 Performed by Kelli Su MD at [facility] CARDIAC CATH LABS INTUBATION 11/07/2023 LAPAROTOMY EXPLORATORY N/A 11/07/2023 Performed by Mitra Crowell MD at [facility] MYRINGOTOMY W/ TUBES RESECTION BOWEL SMALL N/A 11/07/2023 Performed by Mitra Crowell MD at [facility] TONSILLECTOMY OBJECTIVE Vital Signs: Temp: [36.5 C (97.7 F)-37.1 C (98.7 F)] 36.7 C (98.1 F) Pulse: [71-116] 95 Resp: [17-20] 17 BP: (117-138)/(64-91) 134/79 SpO2: [94 %-98 %] 96 % O2 Device: None (Room air) O2 Flow Rate (L/min): [0 L/min] 0 L/min Weight: Body mass index is 44.54 kg/m . Admission weight: 90.3 kg (199 lb 1.2 oz) Wt Readings from Last 3 Encounters: 12/27/23 117.7 kg (259 lb 7.7 oz) 12/19/23 90.3 kg (199 lb 1.2 oz) 12/03/23 90.3 kg (199 lb 1.2 oz) Input/Output: Intake/Output Summary (Last 24 hours) at 12/27/2023 1529 Last data filed at 12/27/2023 0643 Gross per 24 hour Intake 2108.03 ml Output 825 ml Net 1283.03 ml Physical Exam: General appearance: Alert, cooperative, no distress. Eyes: PERRLA, EOM's intact Conjunctiva/corneas moist and clear, no pallor or icterus. Respiratory: Normal work of breathing. No use of accessory muscles. No wheezing, rhonchi or crackles. Cardiovascular: Regular rate and rhythm, S1, S2 normal, no murmur, rub or gallop. No LE edema. Abdomen: Soft, non-tender, no masses. No hernia. No hepatosplenomegaly. Skin: No rashes, lesions or ulcers. No induration or subcutaneous nodules. Psychiatric: Mood and affect appropriate, Appropriate judgment and insight. Alert and oriented. Labs/Imaging: Recent Results (from the past 24 hour(s)) Bedside Glucose *Place/Obtain serum glucose if >500(>600 MRH) per glucometer. Collection Time: 12/26/23 4:13 PM Result Value Ref Range Bedside glucose 112 (H) 65 - 99 mg/dL Hemoglobin and hematocrit, blood Collection Time: 12/26/23 11:15 PM Result Value Ref Range Hemoglobin 7.6 (L) 11.7 - 15.5 g/dL Hematocrit 23.6 (L) 35 - 47 % Comprehensive metabolic panel Collection Time: 12/27/23 6:15 AM Result Value Ref Range Sodium 137 134 - 146 mmol/L Potassium, Bld 4.6 3.5 - 5.0 mmol/L Chloride 110 (H) 98 - 109 mmol/L CO2 21 (L) 22 - 32 mmol/L Anion gap 6 5 - 15 mmol/L BUN 15 5 - 27 mg/dL Creatinine 1.00 0.40 - 1.00 mg/dL Glucose 107 (H) 65 - 99 mg/dL Calcium 7.0 (L) 8.5 - 10.5 mg/dL Total Protein 5.5 (L) 6.0 - 8.0 g/dL Albumin 2.4 (L) 3.2 - 5.3 g/dL Alkaline Phosphatase 164 (H) 39 - 130 U/L AST 19 0 - 41 U/L ALT 15 0 - 31 U/L Total bilirubin 0.5 0.3 - 1.2 mg/dL eGFR (CKD-EPI)non-race dependent 62 >59 ml/min/1.73sq.m CBC auto differential Collection Time: 12/27/23 6:15 AM Result Value Ref Range White Blood Cells 13.5 (H) 4.0 - 11.0 X10E9/L RBC count 2.79 (L) 3.80 - 5.20 X10E12/L Hemoglobin 8.3 (L) 11.7 - 15.5 g/dL Hematocrit 25.3 (L) 35 - 47 % MCV 91 80 - 100 fL MCH 29.9 27 - 34 pg MCHC 33.0 32 - 36 g/dL RDW 18.1 (H) 11.5 - 15.0 % Platelets 155 150 - 450 X10E9/L MPV 8.7 7 - 12 fL % neutrophils 81.9 % % lymphocytes 9.7 % % monocytes 6.7 % % eosinophils 1.0 % % Basophils 0.7 % Neutrophils Absolute (A) 11.0 (H) 1.5 - 6.6 X10E9/L Lymphocytes Absolute 1.3 1.0 - 3.5 X10E9/L Monocytes Absolute 0.9 0 - 0.9 X10E9/L Eosinophils Absolute 0.1 0.0 - 0.4 X10E9/L Basophils Absolute 0.1 0.0 - 0.2 X10E9/L Bedside Glucose *Place/Obtain serum glucose if >500(>600 MRH) per glucometer. Collection Time: 12/27/23 9:04 AM Result Value Ref Range Bedside glucose 126 (H) 65 - 99 mg/dL Bedside Glucose *Place/Obtain serum glucose if >500(>600 MRH) per glucometer. Collection Time: 12/27/23 12:08 PM Result Value Ref Range Bedside glucose 119 (H) 65 - 99 mg/dL Hemoglobin and hematocrit, blood Collection Time: 12/27/23 1:36 PM Result Value Ref Range Hemoglobin 7.8 (L) 11.7 - 15.5 g/dL Hematocrit 23.8 (L) 35 - 47 % Microbiology Results Procedure Component Value Units Date/Time Resp Pathogens Panel/SARS CoV-2 [[id number]] Collected: 12/25/23 1158 Specimen: Nasopharynx Updated: 12/25/23 1427 Specimen Source NASO PHARYNX Adenovirus Detection by PCR Not Detected Coronavirus 229e Not Detected Coronavirus hku1 Not Detected Coronavirus nl63 Not Detected Coronavirus oc43 Not Detected Human metapneumovirus Not Detected Rhinovirus/enterovirus Not Detected Influenza A Not Detected Influenza B Not Detected Parainfluenza 1 Not Detected Parainfluenza 2 Not Detected Parainfluenza 3 Not Detected Parainfluenza 4 Not Detected Respiratory syncytial virus Not Detected Bordetella parapertussis Not Detected Bordetella pertussis Not Detected Chlamydophila pneumophilia Not Detected Mycoplasma pneumoniae Not Detected SARS COV 2 Not Detected Urine culture [[id number]] (Abnormal) (Susceptibility) Collected: 12/22/23 1326 Specimen: Urine from Dasilva Catheter Specimen Updated: 12/26/23 0825 Culture >100,000 ORGANISMS/mL ENTEROCOCCUS SPECIES Ampicillin or Amoxicillin is the drug of choice for uncomplicated cystitis caused by enterococci. Cephalosporins are inappropriate. 50,000 to 100,000 ORGANISMS/mL NORMAL URO GENITAL LALY DR MEDINA REQUESTED SUSCEPTIBILITY 12/23 Susceptibility Enterococcus Species PRESTON METHOD Ampicillin <=2 Susceptible Levofloxacin 0.5 Susceptible Nitrofurantoin <=16 Susceptible Vancomycin 1 Susceptible Wound culture superficial includes gram stain [[id number]] (Abnormal) (Susceptibility) Collected: 12/22/23 1231 Specimen: Wound Swab Updated: 12/25/23 0904 Gram Stain Result >25 WHITE BLOOD CELLS/LPF 10 to 24 SQUAMOUS EPITHELIAL CELLS/LPF RARE GRAM POSITIVE COCCI IN CLUSTERS INTRACELLULAR EXTRACELLULAR RARE PLEOMORPHIC GRAM POSITIVE RODS Culture FEW ESCHERICHIA COLI RARE STAPHYLOCOCCUS AUREUS METHICILLIN RESISTANT RARE STREPTOCOCCUS PYOGENES (GROUP A) ALONG WITH FEW NORMAL SKIN LALY Susceptibility Escherichia Coli PRESTON METHOD AMP/SULBACTAM >=32/16 Resistant Ampicillin >=32 Resistant Cefazolin <=4 (VIEW NOTES) [1] Ceftriaxone <=1 Susceptible Ciprofloxacin >=4 Resistant Gentamicin <=1 Susceptible Levofloxacin >=8 Resistant PIPERACIL/TAZOBACTAM <=4 Susceptible Tobramycin <=1 Susceptible TRIMETH/SULFAMETHOXAZOLE >=16/304 Resistant [1] CLSI interpretive criteria for nonurinary isolates are as follows: <=2 Susceptible, 4 Intermediate, Resistant >=8. Contact Microbiology laboratory if further susceptibility testing for Cefazolin is required. Susceptibility Staphylococcus Aureus PRESTON METHOD Cefazolin RESISTANT(DEDUCED) Clindamycin 0.25 Resistant [1] Doxycycline <=0.5 Susceptible [2] Oxacillin >=4 Resistant TRIMETH/SULFAMETHOXAZOLE <=0.5/9.5 Susceptible Vancomycin <=0.5 Susceptible [1] INDUCIBLE RESISTANCE TO CLINDAMYCIN DETECTED [2] CLIA ID [id number] Blood Culture [[id number]] Collected: 12/22/23 1218 Specimen: Blood Updated: 12/27/23 1310 Culture NO GROWTH 5 DAYS Blood Culture [[id number]] Collected: 12/22/23 121 Specimen: Blood Updated: 12/27/23 1310 Culture NO GROWTH 5 DAYS No results found. All available laboratory, imaging, and microbiology data has been personally reviewed in detail, and accessible in full per EMR. Medications: aspirin, 81 mg, oral, Daily atorvastatin, 20 mg, oral, Nightly doxycycline, 100 mg, oral, BID metoprolol tartrate, 100 mg, oral, BID pantoprazole, 40 mg, oral, QAM AC sodium hypochlorite, 1 Application, topical, BID Infusion: dextrose 5 % in water, 100 mL/hr dextrose 5 % in water 1,000 mL with potassium chloride 40 mEq, sodium bicarbonate 8.4 % (1 mEq/mL) 50 mEq infusion, 75 mL/hr, Last Rate: 75 mL/hr (12/27/23 1133) sodium chloride 0.9 %, 20 mL/hr, Last Rate: 20 mL/hr (12/26/232143) PRN medications: acetaminophen calcium gluconate calcium gluconate calcium gluconate dextrose dextrose 5 % in water dextrose 50 % in water (D50W) gadoteridoL glucagon (human recombinant) iohexoL levalbuterol magnesium sulfate magnesium sulfate metoprolol (LOPRESSOR) IV ondansetron potassium chloride OR potassium chloride sodium chloride sodium chloride sodium chloride sodium chloride 0.9 % sodium chloride ASSESSMENT and plan: Active Hospital Problems Diagnosis Date Noted 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 - Atrial fibrillation with RVR- rate is controlled now - Hx of atypical flutter s/p ablation 02/2022 - Elevated troponin: - Hx of non obstructive CAD on [facility] 2020: - Chronic CHF with improved EF (40-45%): - No chest pain. EKG shows diffuse ST segment depression ( old). [id number] score: 5 S/p intermittent doses of digoxin. Appreciate cardiology input. Plan for coronary CTA once heart rate at goal. Increase metoprolol tartrate to 100 mg mg p.o. b.I.d. aspirin 81 mg p.o. daily and Lipitor 20 mg p.o. q.h.s.. Rule out sepsis: - Potential source is UTI versus pneumonia. - Distended gallbladder is noted on CT. Low suspicion for acute cholecystitis per General surgery. - Negative respiratory pathogen panel. Urine cultures are growing Enterococcus. Wound cultures are growing multiple organisms. - discussed with infectious disease. Finished IV vancomycin, ceftriaxone and Flagyl . Continue with 1 month of p.o. doxycycline. - Chronic Sacral decubitus ulcer - Hx of sacral osteomyelitis 09/2023 s/p I&D: No signs of decubitus ulcer wound infection. Continue with wound care. Cleanse with cleanser, pat dry/apply no sting barrier wipe to periwound skin. Apply 4th strength Dakin's moist gauze to wound bed covered with ABD. Change twice daily. - will transition to wound VAC as inpatient versus at LTAC pending finalization of treatment plan. Suspected recurrent rectal bleed on AC- stopped Acute blood loss anemia, anemia of chronic disease Rectal adenocarcinoma Hx of GI bleed requiring ex-lap with small bowel resection and colostomy creation 09/2023. - Hx of EGD/colonoscopy 10/23/2023 showing severe esophagitis, perianal fistula, multiple polyps and large lesion in the distal rectum - s/p 1 unit PRBC 12/26/2023. - Regular diet per General surgery. - Medical Oncology and Radiation Oncology on consult. - will attempt to repeat MRI pelvis today with use of IV Ativan. The patient is in agreement. - Left lung apex pleural opacity- atelectasis more likely than pneumonia - Precarinal mediastinal node measuring 12 mm compared to 9 mm previously - Pulmonology on consult. Plan for outpatient follow-up and potential EBUS. Acute metabolic encephalopathy: Improving. Delirium precautions. CKD stage IIIA- previously required HD Currently stable. Cleared for MRI gadolinium by Nephrology. Hypocalcemia: Replace and monitor. DVT prophylaxis: SCDs. No pharmacological prophylaxis due to rectal bleed. Code Status: Full. Disposition: To be determined later. Will be going back to LTAC. Current care plan discussed in detail with the patient. She verbalized understanding. Further management will follow based on the clinical course of the patient and results of ongoing evaluation Electronically signed by: BRANDON CARRILLO MD 12/27/2023 Preferred contact method: #1. Epic chat #2. [facility] team pager Available from 7 am to 7 pm For after hours, please page [facility] night team. Disclaimer Note: To increase efficiency, your provider may have prepared this document using voice recognition technology. In that case, if a word or phrase is confusing, or does not make sense, this is likely due to a recognition error within the program which was not discovered during the provider s review. If you believe an error has occurred, please notify your provider s office at your earliest convenience, so we can correct any mistakes. Images from the original note were not included. [facility] [address] [place] [address] PROGRESS NOTE Harris Castrejon resting in bed. Denies chest pain. No issues overnight SUBJECTIVE Allergies: Allergies Allergen Reactions Oats CURRENT MEDICATIONS aspirin, 81 mg, oral, Daily atorvastatin, 20 mg, oral, Nightly doxycycline, 100 mg, oral, BID metoprolol tartrate, 100 mg, oral, BID pantoprazole, 40 mg, oral, QAM AC sodium hypochlorite, 1 Application, topical, BID CONTINUOUS INFUSIONS dextrose 5 % in water, 100 mL/hr dextrose 5 % in water 1,000 mL with potassium chloride 40 mEq, sodium bicarbonate 8.4 % (1 mEq/mL) 50 mEq infusion, 75 mL/hr, Last Rate: 75 mL/hr (12/27/23 1133) sodium chloride 0.9 %, 20 mL/hr, Last Rate: 20 mL/hr (12/26/23 2144) Review of Systems: Cardiovascular: No chest pain, dyspnea on exertion Respiratory: No cough or wheezing OBJECTIVE CBC: Results from last 7 days Lab Units 12/27/23 0615 12/26/23 2315 12/26/23 1300 12/26/23 0548 12/25/23 1307 12/25/23 0549 WBC X10E9/L 13.5* -- -- 13.3* -- 13.0* HEMOGLOBIN g/dL 8.3* 7.6* 8.4* 8.8* < > 7.3* HEMATOCRIT % 25.3* 23.6* 25.6* 27.4* < > 22.6* MCV fL 91 -- -- 91 -- 90 PLATELETS X10E9/L 155 -- -- 170 -- 189 < > = values in this interval not displayed. BMP: Results from last 7 days Lab Units 12/27/23 0615 12/26/23 0548 12/25/23 0549 12/24/23 0520 12/23/23 0326 12/22/23 1242 12/22/23 1234 SODIUM mmol/L 137 137 143 < > 142 -- 142 POTASSIUM mmol/L 4.6 4.3 4.4 < > 4.5 -- 4.5 CHLORIDE mmol/L 110* 110* 115* < > 111* -- 105 CO2 mmol/L 21* 18* 20* < > 22 -- 24 BUN mg/dL 15 20 24 < > 25 -- 32* CREATININE mg/dL 1.00 1.11* 1.14* < > 1.17* -- 1.38* POC CREATININE -- -- -- -- -- < > -- CALCIUM mg/dL 7.0* 6.8* 6.8* < > 7.1* -- 7.8* MAGNESIUM mg/dL -- -- -- -- 1.9 -- 1.9 < > = values in this interval not displayed. PT/INR: Results from last 7 days Lab Units 12/22/231957 PROTIME sec 13.8* INR 1.2* APTT: MAG: Results from last 7 days Lab Units 12/23/23 0326 12/22/23 1234 MAGNESIUM mg/dL 1.9 1.9 D Dimer: Results from last 7 days Lab Units 12/22/231957 D DIMER ng/mL DDU 7,716* Troponin I Results from last 7 days Lab Units 12/24/23 2321 12/23/23 1438 12/23/23 0945 TROPONIN I ng/mL 0.10* 0.33* 0.34* ProBNP Results from last 7 days Lab Units 12/22/23 1841 BNP pg/mL 828* Lipid Panel: Lab Results Component Value Date CHOL 127 (L) 09/13/2021 TRIG 198 (H) 11/25/2023 HDL 38 (L) 09/13/2021 Liver Panel: No results found for: ALB HgA1C: Lab Results Component Value Date HGBA1C 6.8 (H) 12/22/2023 ABG: Lab Results Component Value Date pH 7.488 (H) 11/18/2023 PCO2 29.4 (L) 11/18/2023 PO2 128 (H) 11/18/2023 Base,Excess 1.0 10/29/2023 Base,Deficit 1.0 11/18/2023 Portable HCO3 22.2 11/18/2023 SPO2 97 11/18/2023 CV TESTING HISTORY: ECHO: Echo limited W/ contrast Result Date: 11/07/2023 Left Ventricle: Systolic function is mildly to moderately decreased with an ejection fraction of 40-45%. Mitral Valve: There is mild regurgitation. Tricuspid Valve: There is mild regurgitation. Pericardium: There is no pericardial effusion. There is a left pleural effusion. Echo complete W/O contrast Result Date: 10/21/2023 Left Ventricle: Systolic function is normal with an ejection fraction of 55-60%. Poor image quality study with very poor endocardial definition. Normal left ventricular size with probably mild concentric left ventricular hypertrophy. Grossly normal left ventricular systolic function. No significantly abnormal stenotic or regurgitant flows are identified Echo complete W/ contrast Result Date: 09/04/2023 Left Ventricle: There is mild concentric increased wall thickness/hypertrophy. Systolic function is mildly to moderately decreased with an ejection fraction of 40-45%. Mitral Valve: There is mild to moderate regurgitation with a centrally directed and a posteriorly directed jet. There is no evidence of mitral valve stenosis. Tricuspid Valve: There is moderate regurgitation. The tricuspid valve regurgitation jet is eccentric. There is no evidence of tricuspid valve stenosis. STRESS: No results found. HOLTER: No results found. CARDIAC CATH: No results found. CAROTID: No results found. CXR: X-ray chest 1 view Result Date: 12/23/2023 XR CHEST 1 VW History: Short of breath. One view study. Comparison: 12/22/2023 and 11/30/2023 Impression: * No significant interval change.Cardiac silhouette remains grossly enlarged but unchanged. This may represent cardiomegaly and/or pericardial effusion. Chronic elevation the right hemidiaphragm is noted. Unchanged left PICC line. No acute pulmonary process is seen. No large effusion is noted Finalized by Yany Vargas MD on 12/23/2023 2:11 PM TELEMETRY: AF PHYSICAL EXAM Admission Weight: Weight: 90.3 kg (199 lb 1.2 oz) I/O last 3 completed shifts: In: 4409 [P.O.:600; I.V.:3429.9; Blood:330; IV Piggyback:49.1] Out: 1635 [Urine:1405; Stool:230] Weight change: 19.3 kg (42 lb 7.7 oz) Wt Readings from Last 3 Encounters: 12/27/23 117.7 kg (259 lb 7.7 oz) 12/19/23 90.3 kg (199 lb 1.2 oz) 12/03/23 90.3 kg (199 lb 1.2 oz) Vitals: Vitals: 12/27/23 0306 12/27/23 0405 12/27/23 0856 12/27/23 1204 BP: (!) 137/91 117/89 131/64 134/79 Pulse: 71 87 110 95 Resp: 18 17 17 Temp: 37.1 C (98.7 F) 36.8 C (98.3 F) 36.7 C (98.1 F) TempSrc: Oral Oral Oral SpO2: 96% 98% 95% 96% Weight: Height: Admit Weight Weight: 90.3 kg (199 lb 1.2 oz) Last 3 Weights Last 3 Weight Readings 12/25/23 2307 12/26/23 0500 12/27/23 0305 Weight: 98.4 kg (217 lb) 109.4 kg (241 lb 2.9 oz) 117.7 kg (259 lb 7.7 oz) Body mass index is 44.54 kg/m . INTAKE/OUTPUT I/O last 3 completed shifts: In: 4409 [P.O.:600; I.V.:3429.9; Blood:330; IV Piggyback:49.1] Out: 1635 [Urine:1405; Stool:230] Intake/Output Summary (Last 24 hours) at 12/27/2023 1217 Last data filed at 12/27/2023 0643 Gross per 24 hour Intake 2108.03 ml Output 825 ml Net 1283.03 ml General appearance: Alert oriented and cooperative, In no acute distress Skin: Warm and dry to touch Neck: No JVD, no carotid bruit, Lungs: Clear to ausculation bilaterally, no use of accessory muscles Heart:: iRRR with normal S1 and S2, no murmurs and no gallops. Extremities: No edema Neurologic: Oriented, affect appropriate Psychiatric: Appropriate mood ASSESSMENT/PLAN Persistent AF with RVR [id number] = 5 Not on AC due to recent admission for ?rectal versus sacral ulcer bleeding. No recurrence of bleeding Elevated cardiac troponin: Patient having intermittent episodes of chest pain in the setting of RVR, diffuse mild ST segment depression which does not appear to be new. Patient has moderate triple-vessel disease on angiogram in 2020. Troponin peaked at 0.58, down trended. Severely elevated D-dimer: No reported large pulmonary embolism. No DVT. 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 Chronic hypotension and on midodrine. Prior history of hypertension. History of typical atrial flutter: S/p ablation 02/2022. Questionable sepsis: Mixed hyperlipidemia: Type 2 diabetes: CKD: Previously patient required dialysis. History of colorectal cancer s/p small bowel resection with colostomy: History of sacral ulcers: Heart rates were improved yesterday. Elevated this morning with hold of her PO lopressor for MRI. Just given. Will monitor. Has remained chest pain free. Discussion yesterday between attending and pt and pt POA was to not pursue cardiac cath. Coronary CTA once heart rate better controlled. Tian Reddy, CARDIAC CATH TECHNICIAN-[employer] [facility] I, MAEGAN SINHA MD, I have reviewed and edited the CHALINO's History, Exam, and MDM and agree with the assessment and plan as written. -persistent atrial fibrillation with RVR: [id number] score at least 5. Not on anticoagulation therapy due to recent admission for ?rectal versus sacral ulcer bleeding. -elevated cardiac troponin: Patient had intermittent episodes of chest pain in the setting of RVR, diffuse mild ST segment depression which does not appear to be new. Patient has moderate triple-vessel disease on angiogram in 2020. Troponin peaked at 0.58, down trended. -severely elevated D-dimer: No reported large pulmonary embolism on CT. No DVT on Doppler. 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 -atherosclerotic heart disease of [place] arteries without angina: Moderate disease 01/2021. -chronic hypotension and on midodrine. Prior history of hypertension. -history of typical atrial flutter: S/p ablation 02/2022. -questionable sepsis: -mixed hyperlipidemia: -type 2 diabetes: -CKD: Previously patient required dialysis. -history of colorectal cancer s/p small bowel resection with colostomy: -history of sacral ulcers: Recommendations: Heart rate has improved, average in 80s, RVR episodes driven by infection and anemia. Probably bleeding from sacral ulcers. Sepsis and anemia management as per primary team. Troponin peaked at 0.58, down trended. Chest pain resolved with better heart rate control. Heparin stopped. Will need further ischemic evaluation, preferably Angiography. (Liborio) YOSELIN. I called him 12/25/2023 to update patient's condition, he starts cursing and would like this hospital to treat her cancer only. He tells me he is well aware of her heart conditions which is atrial fibrillation and does not want to no further. No plan for catheterization while patient dealing with infection and anemia. Will proceed with routine coronary CTA once heart rate is better controlled. Very challenging situation, anemia and CKD, not sure if patient will be able to tolerate triple therapy if she requires PCI. For now asymptomatic, will continue to monitor. Thanks for the consult, will follow the patient. MAEGAN SINHA MD This note was completed using a voice workforce management manager system. Every effort was made to ensure accuracy. However, inadvertent computerized workforce management manager errors may be present. Images from the original note were not included. [facility] [address] [place] [address] PROGRESS NOTE Harris Castrejon Patient resting in bed. Denies any chest pain. Complaining of pain in her leg. Rate controlled atrial fibrillation, occasional episodes of RVR since yesterday. Blood pressure stable. Hemoglobin dropped, required 1 packed red cells. SUBJECTIVE Allergies: Allergies Allergen Reactions Oats CURRENT MEDICATIONS aspirin, 81 mg, oral, Daily atorvastatin, 20 mg, oral, Nightly cefTRIAXone (ROCEPHIN) IV, 2,000 mg, intravenous, Q24H [START ON 12/27/2023] doxycycline, 100 mg, oral, BID metoprolol (LOPRESSOR) IV, 5 mg, intravenous, Once metoprolol tartrate, 100 mg, oral, BID pantoprazole, 40 mg, oral, QAM AC sodium hypochlorite, 1 Application, topical, BID vancomycin, 1,250 mg, intravenous, Q24H CONTINUOUS INFUSIONS dextrose 5 % in water, 100 mL/hr dextrose 5 % in water 1,000 mL with potassium chloride 40 mEq, sodium bicarbonate 8.4 % (1 mEq/mL) 50 mEq infusion, 75 mL/hr, Last Rate: 75 mL/hr (12/26/23 0614) sodium chloride 0.9 %, 20 mL/hr, Last Rate: Stopped (12/25/23 0539) sodium chloride 0.9 %, 20 mL/hr Review of Systems: Cardiovascular: No chest pain, dyspnea on exertion, palpitations or loss of consciousness. No cough, hemoptysis, pleuritic pain, or phlebitis. Respiratory: No cough or wheezing, no sputum production, no hematemesis. Neurological: No headache, diplopia, change in muscle strength, numbness or tingling. No change in gait, balance, coordination, mood, affect, memory, mentation, behavior. Hematologic/Lymphatic: No abnormal bruising or bleeding, blood clots or swollen lymph nodes. OBJECTIVE CBC: Results from last 7 days Lab Units 12/26/23 1300 12/26/23 0548 12/26/23 0032 12/25/23 1307 12/25/23 0549 12/24/23 2321 12/24/23 0520 WBC X10E9/L -- 13.3* -- -- 13.0* -- 17.9* HEMOGLOBIN g/dL 8.4* 8.8* 6.8* < > 7.3* < > 7.9* HEMATOCRIT % 25.6* 27.4* 21.0* < > 22.6* < > 24.4* MCV fL -- 91 -- -- 90 -- 90 PLATELETS X10E9/L -- 170 -- -- 189 -- 211 < > = values in this interval not displayed. BMP: Results from last 7 days Lab Units 12/26/23 0548 12/25/23 0549 12/24/23 1710 12/24/23 0520 12/23/23 0326 12/22/23 1242 12/22/23 1234 SODIUM mmol/L 137 143 141 < > 142 -- 142 POTASSIUM mmol/L 4.3 4.4 4.2 < > 4.5 -- 4.5 CHLORIDE mmol/L 110* 115* 113* < > 111* -- 105 CO2 mmol/L 18* 20* 20* < > 22 -- 24 BUN mg/dL < > 25 -- 32* CREATININE mg/dL 1.11* 1.14* 1.11* < > 1.17* -- 1.38* POC CREATININE -- -- -- -- -- < > -- CALCIUM mg/dL 6.8* 6.8* 6.7* < > 7.1* -- 7.8* MAGNESIUM mg/dL -- -- -- -- 1.9 -- 1.9 < > = values in this interval not displayed. PT/INR: Results from last 7 days Lab Units 12/22/231957 PROTIME sec 13.8* INR 1.2* APTT: MAG: Results from last 7 days Lab Units 12/23/23 0326 12/22/23 1234 MAGNESIUM mg/dL 1.9 1.9 D Dimer: Results from last 7 days Lab Units 12/22/231957 D DIMER ng/mL DDU 7,716* Troponin I Results from last 7 days Lab Units 12/24/23 2321 12/23/23 1438 12/23/23 0945 TROPONIN I ng/mL 0.10* 0.33* 0.34* ProBNP Results from last 7 days Lab Units 12/22/23 1841 BNP pg/mL 828* Lipid Panel: Lab Results Component Value Date CHOL 127 (L) 09/13/2021 TRIG 198 (H) 11/25/2023 HDL 38 (L) 09/13/2021 Liver Panel: No results found for: ALB HgA1C: Lab Results Component Value Date HGBA1C 6.8 (H) 12/22/2023 ABG: Lab Results Component Value Date pH 7.488 (H) 11/18/2023 PCO2 29.4 (L) 11/18/2023 PO2 128 (H) 11/18/2023 Base,Excess 1.0 10/29/2023 Base,Deficit 1.0 11/18/2023 Portable HCO3 22.2 11/18/2023 SPO2 97 11/18/2023 CV TESTING HISTORY: ECHO: Echo limited W/ contrast Result Date: 11/07/2023 Left Ventricle: Systolic function is mildly to moderately decreased with an ejection fraction of 40-45%. Mitral Valve: There is mild regurgitation. Tricuspid Valve: There is mild regurgitation. Pericardium: There is no pericardial effusion. There is a left pleural effusion. Echo complete W/O contrast Result Date: 10/21/2023 Left Ventricle: Systolic function is normal with an ejection fraction of 55-60%. Poor image quality study with very poor endocardial definition. Normal left ventricular size with probably mild concentric left ventricular hypertrophy. Grossly normal left ventricular systolic function. No significantly abnormal stenotic or regurgitant flows are identified Echo complete W/ contrast Result Date: 09/04/2023 Left Ventricle: There is mild concentric increased wall thickness/hypertrophy. Systolic function is mildly to moderately decreased with an ejection fraction of 40-45%. Mitral Valve: There is mild to moderate regurgitation with a centrally directed and a posteriorly directed jet. There is no evidence of mitral valve stenosis. Tricuspid Valve: There is moderate regurgitation. The tricuspid valve regurgitation jet is eccentric. There is no evidence of tricuspid valve stenosis. STRESS: No results found. HOLTER: No results found. CARDIAC CATH: No results found. CAROTID: No results found. CXR: X-ray chest 1 view Result Date: 12/23/2023 XR CHEST 1 VW History: Short of breath. One view study. Comparison: 12/22/2023 and 11/30/2023 Impression: * No significant interval change.Cardiac silhouette remains grossly enlarged but unchanged. This may represent cardiomegaly and/or pericardial effusion. Chronic elevation the right hemidiaphragm is noted. Unchanged left PICC line. No acute pulmonary process is seen. No large effusion is noted Finalized by Yany Vargas MD on 12/23/2023 2:11 PM X-ray chest 1 view Result Date: 12/22/2023 Portable chest: HISTORY: Cough and sepsis. Single view the chest was obtained. Cardiac silhouette is enlarged but unchanged. Pulmonary vasculature is congested. No pneumothorax seen. Central line tip in the region of the SVC. IMPRESSION: Cardiomegaly and vascular congestion. Finalized by Ray Vo MD on 12/22/2023 1:52 PM X-ray chest 1 view Result Date: 11/30/2023 HISTORY: A 68-year-old female with the history of the PICC line placement. TECHNIQUE: Portable semierect AP view of chest: One view COMPARISON: Comparison is made with the chest radiograph of the 11/29/2023. FINDINGS: Examination is compromised due to poor inspiratory effort and patient's body habitus. There has been interval replacement of the PICC line through the left upper extremity approach with its tip at the junction of the superior vena cava and right atrium. There is minimal atelectasis in the right midlung field. There is a mild vascular congestion. No pneumothorax is identified. Costophrenic angles are clear. Heart is enlarged. There are aortic calcifications. Trachea is in midline. Hemidiaphragms are normal in position. IMPRESSION: * PICC line through the left upper extremity approach with its tip at the junction of the superior vena cava and right atrium. * No evidence of pneumothorax. * Mild vascular congestion and minimal right midlung field atelectasis. Finalized by Edvin Weinberg MD on 11/30/2023 4:13 PM X-ray chest 1 view Result Date: 11/29/2023 XR CHEST 1 VW HISTORY: Shortness of breath COMPARISON: Chest radiograph 11/21/2023 and 11/20/2023 TECHNIQUE: AP portable upright view. obtained. FINDINGS: Right-sided PICC line with tip overlying expected location of the SVC. Stable enlarged heart size. Mild bronchovascular crowding and interstitial edema. Bibasilar atelectasis. No focal consolidation. No pneumothorax or large pleural effusion. IMPRESSION: * Mild vascular congestion and interstitial edema. * Bibasilar atelectasis without focal consolidation. Approved by Resident Sonya Wright MD on 11/29/2023 5:33 PM Krystal Lang MD have personally reviewed the image(s) and agree with and/or edited the report Finalized by Krystal Anderson MD on 11/29/2023 5:43 PM X-ray chest 1 view Result Date: 11/21/2023 Clinical history: Congestion, pleural effusions. Comparisons: 11/17/2023 through 11/20/2023. Findings: AP portable upright chest radiograph obtained 6:17 AM. Heart size remains enlarged. Pulmonary vasculature is mildly increased was venous redistribution to the upper lungs. There is hypoventilation with low lung volumes and crowding of bronchovascular markings in both lung bases. No focal pulmonary parenchymal consolidation. No large pleural effusion. Right-sided PICC again noted with tip at expected location of SVC. Left-sided PICC tip terminates at the expected location of the right atrium. IMPRESSION: 1. Persistent congestive changes yet interval improvement in atelectasis and consolidation in both lungs. Finalized by Mendoza Corbett MD on 11/21/2023 8:59 AM X-ray chest 1 view Result Date: 11/20/2023 Single view chest History:hypoxia Difficulty breathing, shortness of breath Comparison: 11/18/2023 Findings: Single portable view of the chest. Stable cardia mediastinal silhouette. Stable left PICC. There is mild vascular congestion with small pleural effusions and lower lung atelectasis. Impression: No significant interval change. Finalized by Krystal Anderson MD on 11/20/2023 8:35 AM X-ray chest 1 view Result Date: 11/18/2023 CHEST SINGLE AP VIEW 11/18/2023 12:03 PM CLINICAL INDICATION: picc placement COMPARISON: Chest one view 11/18/2023 IMPRESSION: 1. Right-sided PICC is grossly stable. Right PICC tip is obscured. Interval placement of left-sided PICC. Left PICC tip is obscured but extends at least to the cavoatrial junction. 2. Similar enlarged cardiac silhouette with pulmonary vascular congestion and interstitial edema. Similar small right pleural effusion with right basilar atelectasis or airspace disease. Finalized by Donnie Rojas MD on 11/18/2023 12:08 PM X-ray chest 1 view Result Date: 11/18/2023 Procedure: Chest x-ray performed Number of views:AP portable upright History:Shortness of breath Comparison:11/17/2023 Findings: The heart and lungs show no acute findings, and the mediastinum and bobby are grossly negative . Impression: No significant interval change Finalized by Harris Wilde DO on 11/18/2023 11:11 AM X-ray chest 1 view Result Date: 11/17/2023 Single view chest History:dyspnea Difficulty breathing, shortness of breath Comparison: 11/11/2023 Findings: Single portable view of the chest. Removal of the endotracheal tube and enteric catheter. Right PICC tip in SVC. Regular catheter is been removed. There is small pleural effusions with bilateral lower lung atelectasis or pneumonia and/or mild vascular congestion. Impression: Bilateral pleural effusions and bilateral lower lung atelectasis versus pneumonia and mild vascular congestion. Finalized by Krystal Anderson MD on 11/17/2023 5:23 PM X-ray chest 1 view Result Date: 11/11/2023 HISTORY: Intubated. Shortness of breath. COMPARISON: 11/10/2023. TECHNIQUE: Single portable AP view of the chest. FINDINGS: The ETT terminates 5.0 cm above the kathleen. The enteric tube courses below the diaphragm and out of the [id number]. Stable position of the right PICC in right central venous catheter. The trachea is midline. Stable cardiomegaly. Improving pulmonary vascular congestion and bibasilar opacities. Probable residual retrocardiac opacities. No pneumothorax. IMPRESSION: * Improving pulmonary vascular congestion and pleural effusions. * Persistent retrocardiac opacity, likely residual small pleural effusion or atelectasis. Approved by Resident Luly Kim MD on 11/11/2023 4:46 AM I, Krystal Anderson MD have personally reviewed the image(s) and agree with and/or edited the report Finalized by Krystal Anderson MD on 11/11/2023 4:54 AM X-ray chest 1 view Result Date: 11/10/2023 XR CHEST 1 VW CLINICAL HISTORY: Hypoxia COMPARISON: 11/09/2023 1 view obtained. FINDINGS: Endotracheal tube unchanged. Right IJ line unchanged. Right PICC line unchanged. Stable but severe cardiomegaly Pulmonary venous congestion increased since previous exam Increasing right pleural effusion and right lower lobe airspace density likely atelectasis. small left pleural effusion and left lower lobe atelectasis unchanged. Some interstitial edema in the perihilar regions and in the right lung increased IMPRESSION: * Findings most likely representing congestive heart failure with progression since previous examination Finalized by Neymar Yang MD on 11/10/2023 6:03 AM X-ray chest 1 view Result Date: 11/09/2023 CLINICAL INFORMATION: Respiratory failure on ventilator support COMPARISON: Chest radiograph dated 11/08/2023. VIEWS: 1. FINDINGS: Tip of endotracheal tube is 2.6 cm above the kathleen. Nasogastric tube has tip in the stomach. Right internal jugular central line has tip in proximal superior vena cava. Right PICC line has tip in superior vena cava. Low lung volumes. No interval change of moderate bilateral pleural effusions and bibasilar opacities. Moderate cardiomegaly. No pneumothorax. No free air below the diaphragm. IMPRESSION: No interval change of moderate bilateral pleural effusions and bibasilar opacities. Finalized by Lily Lorenzo MD on 11/09/2023 7:21 AM X-ray chest 1 view Result Date: 11/08/2023 History: Intubated. Reassessing Exam/Technique: Portable upright AP chest Comparison: Yesterday Findings: Endotracheal and enteric tubes and right jugular central line all unchanged with the tip of the endotracheal tube approximately 1.5 cm above the kathleen. With a suboptimal degree of inspiration no interval change is demonstrated with no new acute pulmonary or pleural abnormalities. Cardiomegaly appears grossly unchanged with magnification on this AP view. IMPRESSION: No interval change displayed from yesterday Finalized by Magdi Lyn MD on 11/08/2023 8:38 AM X-ray chest 1 view Result Date: 11/07/2023 CHEST 1 VIEW HISTORY: ET tube placement, NG placement, question free air COMPARISON: 11/06/2023 FINDINGS: ET tube with tip 3.5 cm above kathleen. Right PICC and right IJ central venous catheter is in place. Gastric drainage tube extends into the stomach. Mild bibasilar opacities, likely atelectasis. Probable small layering pleural effusions. No pneumothorax. No free intraperitoneal air identified on this single image. IMPRESSION: * Well-positioned lines and tubes. * Small layering pleural effusions with adjacent bibasilar opacities, likely atelectasis. * No free intraperitoneal air identified on this single image. Finalized by Vincent Pruett MD on 11/07/2023 12:15 PM X-ray chest 1 view Result Date: 11/06/2023 HISTORY: Sob. COMPARISON: 11/05/2023. TECHNIQUE: Single portable AP view of the chest. FINDINGS: Stable position of the right central venous catheter, the tip of which projects over the expected position of the proximal SVC. The trachea is midline. The cardiomediastinal silhouette is stable. Unchanged bibasilar opacities, likely representing atelectasis. No pneumothorax. IMPRESSION: * No significant interval change. Unchanged bibasilar opacities, likely representing atelectasis. Approved by Resident Luly Kim MD on 11/06/2023 5:26 AM I, Sonya Olson MD have personally reviewed the image(s) and agree with and/or edited the report Finalized by Sonya Olson MD on 11/06/2023 5:31 AM X-ray chest 1 view Result Date: 11/05/2023 HISTORY: Central line placement. COMPARISON: 10/31/2023. TECHNIQUE: Single portable AP view of the chest. FINDINGS: There has been interval placement of a right central venous catheter, the tip of which projects over the expected position of the proximal SVC. Stable position of the right PICC. The trachea is midline. The cardiomediastinal silhouette is stable. Improving bibasilar opacities. No pneumothorax. IMPRESSION: * The tip of the right central venous catheter projects over the expected position of the proximal SVC. No pneumothorax. * Improving bibasilar opacities. Approved by Resident Luly Kim MD on 11/05/2023 2:11 AM I, Sonya Olson MD have personally reviewed the image(s) and agree with and/or edited the report Finalized by Sonya Olson MD on 11/05/2023 2:17 AM X-ray chest 1 view Result Date: 10/31/2023 XR CHEST 1 VW HISTORY: Shortness of breath COMPARISON: 10/30/2023 FINDINGS: AP portable upright film obtained. Right upper extremity PICC with tip projecting near the cavoatrial junction. Unchanged, enlarged cardiac silhouette. Persistent vascular congestion and bilateral pleural effusions. No pneumothorax. Left basilar opacity, most likely atelectasis. IMPRESSION: Persistent vascular congestion and bilateral pleural effusions. Approved by Resident Santana Goss MD on 10/31/2023 7:40 AM I, Carol Alex MD have personally reviewed the image(s) and agree with and/or edited the report Finalized by Carol Alex MD on 10/31/2023 7:45 AM X-ray chest 1 view Result Date: 10/30/2023 History: PICC line placement EXAM: Chest AP portable upright 7:42 PM COMPARISON: 5:58 AM FINDINGS: Right upper extremity PICC line tip cavoatrial junction. NG tube in stomach. Stable cardiac silhouette. Mild vascular congestion. No pneumothorax. Basilar airspace opacities, small pleural effusions. IMPRESSION: Right PICC line tip cavoatrial junction. Otherwise, no significant change. Finalized by Reginald Da Silva MD on 10/30/2023 8:35 PM X-ray chest 1 view Result Date: 10/30/2023 Clinical history: CHF Views: 1 Comparison: 10/27/2023 Findings/Impression: 1. Heart size prominent. Vasculature is engorged increased from previous exam. 2. Pulmonary infiltrates likely due to edema/CHF but pneumonia difficult exclude appropriate clinical setting. No definite pneumothorax. Pleural effusions right side worse than left Finalized by Carol Alex MD on 10/30/2023 6:12 AM X-ray chest 1 view Result Date: 10/27/2023 CLINICAL INFORMATION: Hypoxia COMPARISON: Chest radiograph dated 10/24/2023. VIEWS: 1. FINDINGS: Tip of endotracheal tube is 5 cm above the kathleen. Nasogastric tube has tip in the stomach. Cardiac and mediastinal shadows are normal. No infiltrates. No effusions. No pneumothorax. No free air below the diaphragm. IMPRESSION: - Satisfactory positioning of endotracheal and nasogastric tubes. - No radiographic evidence for acute cardiopulmonary disease. Finalized by Lily Lorenzo MD on 10/27/2023 7:43 AM X-ray chest 1 view Result Date: 10/24/2023 Procedure: Chest x-ray performed Number of views:1 History:Shortness of breath Comparison:10/23/2023 Findings: The heart and lungs show no acute findings, and the mediastinum and bobby are grossly negative . Tubes and lines are stable. Impression: 1. No acute change. Finalized by Jose Tinoco MD on 10/24/2023 6:30 AM X-ray chest 1 view Result Date: 10/23/2023 Single view chest History:resp failure Difficulty breathing, shortness of breath Comparison: 10/20/2023 Findings: Single portable view of the chest. Stable endotracheal tube and enteric catheter. Stable cardiomediastinal silhouette. There is no focal consolidation, large effusion or pneumothorax. Impression: Stable tubes and lines. No significant interval change. Finalized by Krystal Anderson MD on 10/23/2023 6:15 AM X-ray chest 1 view Result Date: 10/20/2023 CLINICAL INFORMATION: Respiratory distress. Respiratory failure and ventilator support COMPARISON: Chest radiograph dated 10/19/2020. VIEWS: 1. FINDINGS: Tip of endotracheal tube is 4 cm above the kathleen. Nasogastric tube has tip in the stomach. Cardiac and mediastinal shadows are normal. No infiltrates. No effusions. No pneumothorax. No free air below the diaphragm. IMPRESSION: Satisfactory positioning of endotracheal and nasogastric tubes. No radiographic evidence for acute cardiopulmonary disease. Finalized by Lily Lorenzo MD on 10/20/2023 7:08 AM X-ray chest 1 view Result Date: 10/19/2023 History: Intubation Technique: A portable single frontal view the chest was obtained. Comparison: 10/19/2023 at 2:54 AM Findings: There is been improved aeration of the left lung since the previous examination. Endotracheal tube remains in place. Has retracted slightly since previous examination but continues to have its tip in the right mainstem bronchus. Retraction of approximately 4 cm is recommended. Impression: * The tip of the endotracheal tube remains in the right mainstem bronchus. Retraction by about 4 cm is recommended. * Improved aeration of the left lung since the prior study. Finalized by Sonya Olson MD on 10/19/2023 3:24 AM X-ray chest 1 view Result Date: 10/19/2023 XR CHEST 1 VW HISTORY: Shortness of breath, respiratory failure COMPARISON: Chest x-ray 10/18/2023 FINDINGS: There is complete interval opacification of the left lung with air bronchograms present. Interval placement of endotracheal tube which terminates in the right mainstem bronchus. Recommend retracting 8 cm. Right chest unremarkable appearing. IMPRESSION: * Complete opacification of the left lung with endotracheal tube tube terminating in the right mainstem bronchus. Recommend retracting 8 cm. Approved by Resident Tanner Licea DO on 10/19/2023 3:01 AM Sonya Lang MD have personally reviewed the image(s) and agree with and/or edited the report Finalized by Sonya Olson MD on 10/19/2023 3:11 AM X-ray chest 1 view Result Date: 10/17/2023 Procedure: Chest x-ray performed Number of views:AP portable History:Transient alteration of awareness Comparison:10/05/2023 Findings: The heart and lungs show no acute findings, and the mediastinum and bobby are grossly negative . Impression: No acute change. Finalized by Harris Wilde DO on 10/17/2023 5:08 PM X-ray chest 1 view Result Date: 10/05/2023 XR CHEST 1 VW HISTORY: Congestive heart failure, shortness of breath COMPARISON: 09/30/2023 FINDINGS: AP upright film obtained. Interval removal of right-sided central venous catheter. The cardiomediastinal silhouette is prominent and unchanged. No significant pulmonary vascular congestion.. No pleural effusion or pneumothorax. No consolidation. Degenerative changes in the AC joints bilaterally. Lower thoracic spondylosis with bony spurring. IMPRESSION: * Improved pulmonary vascular congestion with no radiographic evidence of acute cardiopulmonary process. * Interval removal of right IJ central line. Approved by Resident: Judson Pompa DO on 10/05/2023 8:38 AM Vida Lang MD have personally reviewed the image(s) and agree with and/or edited the report Finalized by Vida Jiménez MD on 10/05/2023 8:44 AM X-ray chest 1 view Result Date: 09/30/2023 XR CHEST 1 VW HISTORY: CHF and pulmonary congestion. Follow-up exam COMPARISON: Prior study from the day before. FINDINGS: AP portable upright view of the chest The trachea is midline. Cardiomediastinal contour is mildly enlarged with bilateral hilar congestion. Left retrocardiac consolidation. No pleural effusion or pneumothorax. No change in right IJ central line with the tip in the SVC. IMPRESSION: * Low lung volumes and decompensated CHF similar to prior study. Finalized by Vida Jiménez MD on 09/30/2023 8:05 AM X-ray chest 1 view Result Date: 09/29/2023 Clinical History: Congestion. Portable Upright chest: 09/29/2023 Comparison: 09/28/2023 Findings: A single portable view of the chest was obtained. Right IJ catheter remains in the mid SVC region. There is cardiac prominence with vascular distention centrally and indistinct vascular margins. Confluent basilar opacities persist with no definite change. There is no pneumothorax. Pleural effusions are likely bilaterally IMPRESSION: Persistent vascular congestion with grossly stable basilar infiltrates and probable pleural effusions. Finalized by Jamaal Cormier MD on 09/29/2023 8:09 AM X-ray chest 1 view Result Date: 09/28/2023 Clinical History: Congestion. Edema. Portable Upright chest: 09/28/2023 Comparison: 09/27/2023 Findings: A single portable view of the chest was obtained. Right IJ catheter is in mid trachea. Cardiac silhouette is prominent with stable mediastinal contours. This vascular distention and indistinct appearance centrally with persistent perihilar and basilar infiltrates. No pneumothorax or large pleural effusion is present. IMPRESSION: Vascular congestion with persistent basilar infiltrates and pleural effusions. Finalized by Jamaal Cormier MD on 09/28/2023 7:29 AM PHYSICAL EXAM Admission Weight: Weight: 90.3 kg (199 lb 1.2 oz) I/O last 3 completed shifts: In: 5595.8 [P.O.:300; I.V.:3843.1; Blood:330; IV Piggyback:1122.6] Out: 1880 [Urine:1825; Stool:56] Weight change: -0.069 kg (-2.5 oz) Wt Readings from Last 3 Encounters: 12/26/23 109.4 kg (241 lb 2.9 oz) 12/19/23 90.3 kg (199 lb 1.2 oz) 12/03/23 90.3 kg (199 lb 1.2 oz) Vitals: Vitals: 12/26/23 0500 12/26/23 0600 12/26/23 0800 12/26/23 1200 BP: 131/71 143/82 (!) 129/91 132/82 Pulse: 76 88 111 103 Resp: 18 18 Temp: 36.5 C (97.7 F) 36.6 C (97.9 F) TempSrc: Oral Oral SpO2: 98% 98% 95% 96% Weight: 109.4 kg (241 lb 2.9 oz) Height: Admit Weight Weight: 90.3 kg (199 lb 1.2 oz) Last 3 Weights Last 3 Weight Readings 12/25/23 0435 12/25/23 2307 12/26/23 0500 Weight: 98.5 kg (217 lb 2.5 oz) 98.4 kg (217 lb) 109.4 kg (241 lb 2.9 oz) Body mass index is 41.4 kg/m . INTAKE/OUTPUT I/O last 3 completed shifts: In: 5595.8 [P.O.:300; I.V.:3843.1; Blood:330; IV Piggyback:1122.6] Out: 1880 [Urine:1825; Stool:56] Intake/Output Summary (Last 24 hours) at 12/26/2023 1413 Last data filed at 12/26/2023 1200 Gross per 24 hour Intake 2703.74 ml Output 810 ml Net 1893.74 ml General appearance: Alert oriented Eyes: Conjunctivae unremarkable, EOM's intact, sclera non icteric Neck: No JVD, no carotid bruit, neck supple, trachea midline Lungs: Clear to ausculation bilaterally, no use of accessory muscles Heart:: Irregularly irregular with normal S1 and S2, no murmurs and no gallops. Abdomen: Soft, non-tender, bowel sounds normal. Extremities: Mild bilateral pitting edema Neurologic: Moving all extremities. 68 year female with past medical history of diabetes, essential hypertension, mixed hyperlipidemia, atrial fibrillation/flutter s/p ablation 2020, heart failure with reduced ejection fraction, atherosclerotic heart disease (2020 angiogram showed moderate disease in LAD, RCA and LCX, medical management), nonrheumatic mitral and tricuspid valve regurgitation, osteomyelitis. Patient was discharged to facility, during MRI found to have hypotension and atrial fibrillation with RVR. Chronic hypotension. -persistent atrial fibrillation with RVR: [id number] score at least 5. Not on anticoagulation therapy due to recent admission for ?rectal versus sacral ulcer bleeding. No recurrence of bleeding. -elevated cardiac troponin: Patient having intermittent episodes of chest pain in the setting of RVR, diffuse mild ST segment depression which does not appear to be new. Patient has moderate triple-vessel disease on angiogram in 2020. Troponin peaked at 0.58, down trended. -severely elevated D-dimer: No reported large pulmonary embolism. No DVT. 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 -atherosclerotic heart disease of [place] arteries without angina: Moderate disease 01/2021. -chronic hypotension and on midodrine. Prior history of hypertension. -history of typical atrial flutter: S/p ablation 02/2022. -questionable sepsis: -mixed hyperlipidemia: -type 2 diabetes: -CKD: Previously patient required dialysis. -history of colorectal cancer s/p small bowel resection with colostomy: -history of sacral ulcers: Recommendations: Heart rate has improved, average in 80s, RVR episodes driven by infection and anemia. Probably bleeding from sacral ulcers. Sepsis and anemia management as per primary team. Continue heparin gtt. Troponin peaked at 0.58, down trended. Chest pain resolved with better heart rate control. Will need further ischemic evaluation, preferably Angiography. (Lib[place]) POA. I called him 12/25/2023 to update patient's condition, he starts cursing and would like this hospital to treat her cancer only. He tells me he is well aware of her heart conditions which is atrial fibrillation and does not want to no further. No plan for catheterization while patient dealing with infection and anemia. Will proceed with routine coronary CTA once heart rate is better controlled. Very challenging situation, anemia and CKD, not sure if patient will be able to tolerate triple therapy if she requires PCI. For now asymptomatic, will continue to monitor. Thanks for the consult, will follow the patient. MAEGAN SINHA MD This note was completed using a voice workforce management manager system. Every effort was made to ensure accuracy. However, inadvertent computerized workforce management manager errors may be present. Images from the original note were not included. Division of Infectious Diseases - Progress Note Team 1 Please contact us via PISTIS Consult chat. After hours, call [phone] Patient name: Harris Castrejon Patient Today's Date and Time: 12/26/2023, 12:04 PM Admission Date: 12/22/2023 Impression : Chronically ill patient with a very large number of medical problems who recently developed a huge sacrococcygeal ulcer which was treated with Unasyn for 6 weeks for potential osteomyelitis of the sacrum/coccyx. She presented with atrial fibrillation with RVR which could explain the leukocytosis. Her coccyx wound looks quite clean but is very deep; some bone is palpable, but no purulence whatsoever. Her blood cultures are negative and she is awake but she looks chronically ill. She does not look septic at all. Her abdominal exam is NOT revealing signs consistent with cholecystitis. The superficial culture taken at the bedside has no meaning and should be ignored She does have rectal cancer, oncology planning MRI which was not done yet and radiation. That will likely pose more problems with healing the wound, so I do not expect her decubitus to close anytime soon Recommendations: Ceftriaxone flagyl vancomycin last doses today, then switch to doxycycline for a month Consider wound vac instead of dakins. Consult wound care. Both abdominal wound and coccyx wounds look much much better than in the admission pictures, so clearly she needs more aggressive wound care at the facility She needs a good sponge bath, she has layers and layers of skin flaking off Will see her in clinic 1-2 weeks post-discharge, please call with questions. Discussed with Dr Carrillo Subjective Interval History: No more SOB, no chest pain Some abdominal discomfort No rash WBC stable at 13 No more rectal bleed, surgery following, Hb stable but low at 6.9 Objective Physical Examination : BP (!) 129/91 Pulse 111 Temp 36.5 C (97.7 F) (Oral) Resp 18 Ht 162.6 cm (5' 4 ) Wt 109.4 kg (241 lb 2.9 oz) SpO2 95% BMI 41.40 kg/m Temperature Range: Temp: 36.5 C (97.7 F) Temp Av.6 C (97.8 F) Min: 36.5 C (97.7 F) Max: 36.7 C (98.1 F) General Appearance: Awake, alert, and in no apparent distress, nontoxic. She is quite confused though Pulmonary/Chest: Clear to auscultation, without wheezes, rales, no rhonchi Cardiovascular: Regular rate and rhythm without murmurs Abdomen: soft, obese, non-tender, large pannus Abdominal wound is superficial and looks clean Buttock wound is large deep to bone, but no purulence, no odor, no necrosis. Some bone exposed and moving. She has good sensation. Extremities: No cyanosis, trace edema, no joint effusions. Neurologic: moves all extremities Skin: VERY scaly skin. No rash no lesions. + pallor Laboratory data: I have independently reviewed the following labs: Results from last 7 days Lab Units 12/26/23 0548 12/26/23 0032 12/25/23 2200 12/25/23 1307 12/25/23 0549 12/24/23 2321 12/24/23 0520 WBC X10E9/L 13.3* -- -- -- 13.0* -- 17.9* HEMOGLOBIN g/dL 8.8* 6.8* 6.9* < > 7.3* < > 7.9* HEMATOCRIT % 27.4* 21.0* 21.6* < > 22.6* < > 24.4* MCV fL 91 -- -- -- 90 -- 90 PLATELETS X10E9/L 170 -- -- -- 189 -- 211 NEUTROS ABS X10E9/L 10.4* -- -- -- 10.4* -- 14.8* LYMPHS ABS AUTO X10E9/L 1.5 -- -- -- 1.4 -- 1.8 MONOS ABS AUTO X10E9/L 1.1* -- -- -- 1.0* -- 1.1* EOS ABS AUTO X10E9/L 0.2 -- -- -- 0.1 -- 0.1 BASOS ABS AUTO X10E9/L 0.1 -- -- -- 0.1 -- 0.1 < > = values in this interval not displayed. Results from last 7 days Lab Units 12/26/23 0548 12/25/23 0549 12/24/23 1710 12/24/23 0520 SODIUM mmol/L 137 143 141 144 POTASSIUM mmol/L 4.3 4.4 4.2 4.0 CHLORIDE mmol/L 110* 115* 113* 115* CO2 mmol/L 18* 20* 20* 19* BUN mg/dL 27 CREATININE mg/dL 1.11* 1.14* 1.11* 1.17* CALCIUM mg/dL 6.8* 6.8* 6.7* 6.8* ALK PHOS U/L 171* 174* -- 198* ALT U/L 16 16 -- 18 AST U/L 23 23 -- 23 Results from last 7 days Lab Units 12/22/23 1841 SED RATE mm/h 20 HEMOGLOBIN A1C % 6.8* Results from last 7 days Lab Units 12/22/23 1337 12/22/23 1326 SPECIFIC GRAVITY KALINA 1.020 -- LEUKOCYTE ESTERASE KALINA Trace* -- UROBILINOGEN KALINA eu/dL 1.0 -- RBC UA /hpf -- 3 WBC UA /hpf -- 40* Imaging Studies: X-ray chest 1 view Result Date: 12/23/2023 XR CHEST 1 VW History: Short of breath. One view study. Comparison: 12/22/2023 and 11/30/2023 Impression: * No significant interval change.Cardiac silhouette remains grossly enlarged but unchanged. This may represent cardiomegaly and/or pericardial effusion. Chronic elevation the right hemidiaphragm is noted. Unchanged left PICC line. No acute pulmonary process is seen. No large effusion is noted Finalized by Yany Vargas MD on 12/23/2023 2:11 PM Cultures: Microbiology Results Procedure Component Value Units Date/Time Resp Pathogens Panel/SARS CoV-2 [[id number]] Collected: 12/25/23 1158 Specimen: Nasopharynx Updated: 12/25/23 1427 Specimen Source NASO PHARYNX Adenovirus Detection by PCR Not Detected Coronavirus 229e Not Detected Coronavirus hku1 Not Detected Coronavirus nl63 Not Detected Coronavirus oc43 Not Detected Human metapneumovirus Not Detected Rhinovirus/enterovirus Not Detected Influenza A Not Detected Influenza B Not Detected Parainfluenza 1 Not Detected Parainfluenza 2 Not Detected Parainfluenza 3 Not Detected Parainfluenza 4 Not Detected Respiratory syncytial virus Not Detected Bordetella parapertussis Not Detected Bordetella pertussis Not Detected Chlamydophila pneumophilia Not Detected Mycoplasma pneumoniae Not Detected SARS COV 2 Not Detected Urine culture [[id number]] (Abnormal) (Susceptibility) Collected: 12/22/23 1326 Specimen: Urine from Dasilva Catheter Specimen Updated: 12/26/23 0825 Culture >100,000 ORGANISMS/mL ENTEROCOCCUS SPECIES Ampicillin or Amoxicillin is the drug of choice for uncomplicated cystitis caused by enterococci. Cephalosporins are inappropriate. 50,000 to 100,000 ORGANISMS/mL NORMAL URO GENITAL LALY DR MEDINA REQUESTED SUSCEPTIBILITY 12/23 Susceptibility Enterococcus Species PRESTON METHOD Ampicillin <=2 Susceptible Levofloxacin 0.5 Susceptible Nitrofurantoin <=16 Susceptible Vancomycin 1 Susceptible Wound culture superficial includes gram stain [[id number]] (Abnormal) (Susceptibility) Collected: 12/22/23 1231 Specimen: Wound Swab Updated: 12/25/23 0904 Gram Stain Result >25 WHITE BLOOD CELLS/LPF 10 to 24 SQUAMOUS EPITHELIAL CELLS/LPF RARE GRAM POSITIVE COCCI IN CLUSTERS INTRACELLULAR EXTRACELLULAR RARE PLEOMORPHIC GRAM POSITIVE RODS Culture FEW ESCHERICHIA COLI RARE STAPHYLOCOCCUS AUREUS METHICILLIN RESISTANT RARE STREPTOCOCCUS PYOGENES (GROUP A) ALONG WITH FEW NORMAL SKIN LALY Susceptibility Escherichia Coli PRESTON METHOD AMP/SULBACTAM >=32/16 Resistant Ampicillin >=32 Resistant Cefazolin <=4 (VIEW NOTES) [1] Ceftriaxone <=1 Susceptible Ciprofloxacin >=4 Resistant Gentamicin <=1 Susceptible Levofloxacin >=8 Resistant PIPERACIL/TAZOBACTAM <=4 Susceptible Tobramycin <=1 Susceptible TRIMETH/SULFAMETHOXAZOLE >=16/304 Resistant [1] CLSI interpretive criteria for nonurinary isolates are as follows: <=2 Susceptible, 4 Intermediate, Resistant >=8. Contact Microbiology laboratory if further susceptibility testing for Cefazolin is required. Susceptibility Staphylococcus Aureus PRESTON METHOD Cefazolin RESISTANT(DEDUCED) Clindamycin 0.25 Resistant [1] Doxycycline <=0.5 Susceptible [2] Oxacillin >=4 Resistant TRIMETH/SULFAMETHOXAZOLE <=0.5/9.5 Susceptible Vancomycin <=0.5 Susceptible [1] INDUCIBLE RESISTANCE TO CLINDAMYCIN DETECTED [2] CLIA ID [id number] Blood Culture [[id number]] Collected: 12/22/23 121 Specimen: Blood Updated: 12/25/23 130 Culture NO GROWTH 3 DAYS Blood Culture [[id number]] Collected: 12/22/23 121 Specimen: Blood Updated: 12/25/23 130 Culture NO GROWTH 3 DAYS Medications: aspirin, 81 mg, oral, Daily atorvastatin, 20 mg, oral, Nightly cefTRIAXone (ROCEPHIN) IV, 2,000 mg, intravenous, Q24H [START ON 12/27/2023] doxycycline, 100 mg, oral, BID heparin (porcine), 5,000 Units, subcutaneous, Q12H PAUL metoprolol tartrate, 50 mg, oral, BID metroNIDAZOLE, 500 mg, oral, Q12H PAUL pantoprazole, 40 mg, oral, QAM AC sodium hypochlorite, 1 Application, topical, BID vancomycin, 1,250 mg, intravenous, Q24H This progress note was completed using a voice workforce management manager system. Every effort was made to ensure accuracy; however, inadvertent computerized workforce management manager errors may be present. Thank you for allowing us to participate in the care of this patient. - ROBERT GARCÍA MD 12/26/23 12:04 PM [facility] Infectious Diseases Please contact us via PISTIS Consult chat Images from the original note were not included. [facility] Progress Note 12/26/2023 Patient Name: Harris Castrejon : 1955 Hospital Day: 5 SUBJECTIVE Follow-up for abdominal pain. The patient seen and examined. No acute events over night. No fevers or chills. Tolerating diet. Past Medical History: Diagnosis Date Arrhythmia Hypertension Injury of back Disc L4 and L5 Obesity Respiratory distress 10/19/2023 Septic shock ([facility]) 12/22/2023 Systolic and diastolic CHF, acute ([facility]) 09/03/2023 Visual impairment Past Surgical History: Procedure Laterality Date APPLICATION WOUND VAC N/A 11/07/2023 Performed by Mitra Crowell MD at [facility] Cardiac catheterization 02/16/2021 Performed by Kelli Su MD at [facility] CARDIAC CATH LABS Caval Tricuspid Isthmus RFA, Carto w/ICE N/A 03/21/2021 Performed by Lurdes Weinberg MD at [facility] AT [facility] (EP) COLONOSCOPY POLYPECTOMY N/A 10/23/2023 Performed by Soy Talamantes MD at [facility] Coronary angiogram and left ventricular gram/pressure N/A 02/16/2021 Performed by Kelli Su MD at [facility] CARDIAC CATH LABS Coronary fractional flow reserve N/A 02/16/2021 Performed by Kelli Su MD at [facility] CARDIAC CATH LABS CREATION OF END COLOSTOMY N/A 11/07/2023 Performed by Mitra Crowell MD at [facility] ESOPHAGOGASTRODUODENOSCOPY DIAGNOSTIC N/A 10/23/2023 Performed by Soy Talamantes MD at [facility] EXAM UNDER ANESTHESIA WITH BRECTAL BIOPSY N/A 11/28/2023 Performed by Mitra Crowell MD at [facility] EXAM UNDER ANESTHESIA/RECTAL MASS BIOPSY N/A 10/25/2023 Performed by Mitra Crowell MD at [facility] FLEXIBLE SIGMOIDOSCOPY N/A 10/25/2023 Performed by Mitra Crowell MD at [facility] FLEXIBLE SIGMOIDOSCOPY WITH BIOPSY N/A 11/28/2023 Performed by Mitra Crowell MD at [facility] INSCISIONAL DEBRIDEMENT SACRUM N/A 10/20/2023 Performed by Magdi Matthew MD at [facility] INSERT ARTERIAL LINE 11/05/2023 INSERT ARTERIAL LINE 11/07/2023 Intravascular pressure measurement first vessel each additional vessel (fractional flow reserve) N/A 02/16/2021 Performed by Kelli Su MD at [facility] CARDIAC CATH LABS INTUBATION 11/07/2023 LAPAROTOMY EXPLORATORY N/A 11/07/2023 Performed by Mitra Crowell MD at [facility] MYRINGOTOMY W/ TUBES RESECTION BOWEL SMALL N/A 11/07/2023 Performed by Mitra Crowell MD at [facility] TONSILLECTOMY OBJECTIVE Vital Signs: Temp: [36.5 C (97.7 F)-36.7 C (98.1 F)] 36.6 C (97.9 F) Pulse: [66-111] 103 Resp: [16-20] 18 BP: (105-153)/(69-91) 132/82 SpO2: [94 %-100 %] 96 % O2 Device: None (Room air) Weight: Body mass index is 41.4 kg/m . Admission weight: 90.3 kg (199 lb 1.2 oz) Wt Readings from Last 3 Encounters: 12/26/23 109.4 kg (241 lb 2.9 oz) 12/19/23 90.3 kg (199 lb 1.2 oz) 12/03/23 90.3 kg (199 lb 1.2 oz) Input/Output: Intake/Output Summary (Last 24 hours) at 12/26/2023 1316 Last data filed at 12/26/2023 1200 Gross per 24 hour Intake 3336.59 ml Output 1160 ml Net 2176.59 ml Physical Exam: General appearance: Alert, cooperative, no distress. Eyes: PERRLA, EOM's intact Conjunctiva/corneas moist and clear, no pallor or icterus. Respiratory: Normal work of breathing. No use of accessory muscles. No wheezing, rhonchi or crackles. Cardiovascular: irregular heart rate, S1, S2 normal, no murmur, rub or gallop. No LE edema. Abdomen: Soft, non-tender, no masses. mild generalized abdominal tenderness. Colostomy with midline abdominal wound. Skin: No rashes, lesions or ulcers. No induration or subcutaneous nodules. Psychiatric: Mood and affect appropriate, slightly confused. Labs/Imaging: Recent Results (from the past 24 hour(s)) Bedside Glucose *Place/Obtain serum glucose if >500(>600 MRH) per glucometer. Collection Time: 12/25/23 3:45 PM Result Value Ref Range Bedside glucose 106 (H) 65 - 99 mg/dL Bedside Glucose *Place/Obtain serum glucose if >500(>600 MRH) per glucometer. Collection Time: 12/25/23 8:36 PM Result Value Ref Range Bedside glucose 108 (H) 65 - 99 mg/dL Hemoglobin and hematocrit, blood Collection Time: 12/25/23 10:00 PM Result Value Ref Range Hemoglobin 6.9 (LL) 11.7 - 15.5 g/dL Hematocrit 21.6 (L) 35 - 47 % Type and screen(includes indirect aram) Collection Time: 12/26/23 12:00 AM Result Value Ref Range ABO O RH Positive Antibody Screen Negative Crossmatch RBC:Number of Units: 1 Collection Time: 12/26/23 12:00 AM Result Value Ref Range Blood component type [id number] Unit number [id number] Unit ABO O Unit RH POS Crossmatch Compatible Status of unit TRANSFUSED Expiration Date [id number] BB Type Barcode 5100 Hemoglobin and hematocrit, blood Collection Time: 12/26/23 12:32 AM Result Value Ref Range Hemoglobin 6.8 (LL) 11.7 - 15.5 g/dL Hematocrit 21.0 (L) 35 - 47 % Comprehensive metabolic panel Collection Time: 12/26/23 5:48 AM Result Value Ref Range Sodium 137 134 - 146 mmol/L Potassium, Bld 4.3 3.5 - 5.0 mmol/L Chloride 110 (H) 98 - 109 mmol/L CO2 18 (L) 22 - 32 mmol/L Anion gap 9 5 - 15 mmol/L BUN 20 5 - 27 mg/dL Creatinine 1.11 (H) 0.40 - 1.00 mg/dL Glucose 112 (H) 65 - 99 mg/dL Calcium 6.8 (LL) 8.5 - 10.5 mg/dL Total Protein 5.6 (L) 6.0 - 8.0 g/dL Albumin 2.4 (L) 3.2 - 5.3 g/dL Alkaline Phosphatase 171 (H) 39 - 130 U/L AST 23 0 - 41 U/L ALT 16 0 - 31 U/L Total bilirubin 0.6 0.3 - 1.2 mg/dL eGFR (CKD-EPI)non-race dependent 55 (L) >59 ml/min/1.73sq.m CBC auto differential Collection Time: 12/26/23 5:48 AM Result Value Ref Range White Blood Cells 13.3 (H) 4.0 - 11.0 X10E9/L RBC count 3.03 (L) 3.80 - 5.20 X10E12/L Hemoglobin 8.8 (L) 11.7 - 15.5 g/dL Hematocrit 27.4 (L) 35 - 47 % MCV 91 80 - 100 fL MCH 29.2 27 - 34 pg MCHC 32.2 32 - 36 g/dL RDW 17.6 (H) 11.5 - 15.0 % Platelets 170 150 - 450 X10E9/L MPV 8.7 7 - 12 fL % neutrophils 78.5 % % lymphocytes 11.6 % % monocytes 7.9 % % eosinophils 1.4 % % Basophils 0.6 % Neutrophils Absolute (A) 10.4 (H) 1.5 - 6.6 X10E9/L Lymphocytes Absolute 1.5 1.0 - 3.5 X10E9/L Monocytes Absolute 1.1 (H) 0 - 0.9 X10E9/L Eosinophils Absolute 0.2 0.0 - 0.4 X10E9/L Basophils Absolute 0.1 0.0 - 0.2 X10E9/L Bedside Glucose *Place/Obtain serum glucose if >500(>600 MRH) per glucometer. Collection Time: 12/26/23 8:33 AM Result Value Ref Range Bedside glucose 109 (H) 65 - 99 mg/dL Ionized calcium Collection Time: 12/26/23 9:35 AM Result Value Ref Range Calcium, ionized 4.1 (L) 4.5 - 5.3 mg/dL Bedside Glucose *Place/Obtain serum glucose if >500(>600 MRH) per glucometer. Collection Time: 12/26/23 12:20 PM Result Value Ref Range Bedside glucose 125 (H) 65 - 99 mg/dL Microbiology Results Procedure Component Value Units Date/Time Resp Pathogens Panel/SARS CoV-2 [[id number]] Collected: 12/25/23 1158 Specimen: Nasopharynx Updated: 12/25/23 1427 Specimen Source NASO PHARYNX Adenovirus Detection by PCR Not Detected Coronavirus 229e Not Detected Coronavirus hku1 Not Detected Coronavirus nl63 Not Detected Coronavirus oc43 Not Detected Human metapneumovirus Not Detected Rhinovirus/enterovirus Not Detected Influenza A Not Detected Influenza B Not Detected Parainfluenza 1 Not Detected Parainfluenza 2 Not Detected Parainfluenza 3 Not Detected Parainfluenza 4 Not Detected Respiratory syncytial virus Not Detected Bordetella parapertussis Not Detected Bordetella pertussis Not Detected Chlamydophila pneumophilia Not Detected Mycoplasma pneumoniae Not Detected SARS COV 2 Not Detected Urine culture [[id number]] (Abnormal) (Susceptibility) Collected: 12/22/23 1326 Specimen: Urine from Dasilva Catheter Specimen Updated: 12/26/23 0825 Culture >100,000 ORGANISMS/mL ENTEROCOCCUS SPECIES Ampicillin or Amoxicillin is the drug of choice for uncomplicated cystitis caused by enterococci. Cephalosporins are inappropriate. 50,000 to 100,000 ORGANISMS/mL NORMAL URO GENITAL LALY DR MEDINA REQUESTED SUSCEPTIBILITY 12/23 Susceptibility Enterococcus Species PRESTON METHOD Ampicillin <=2 Susceptible Levofloxacin 0.5 Susceptible Nitrofurantoin <=16 Susceptible Vancomycin 1 Susceptible Wound culture superficial includes gram stain [[id number]] (Abnormal) (Susceptibility) Collected: 12/22/23 1231 Specimen: Wound Swab Updated: 12/25/23 0904 Gram Stain Result >25 WHITE BLOOD CELLS/LPF 10 to 24 SQUAMOUS EPITHELIAL CELLS/LPF RARE GRAM POSITIVE COCCI IN CLUSTERS INTRACELLULAR EXTRACELLULAR RARE PLEOMORPHIC GRAM POSITIVE RODS Culture FEW ESCHERICHIA COLI RARE STAPHYLOCOCCUS AUREUS METHICILLIN RESISTANT RARE STREPTOCOCCUS PYOGENES (GROUP A) ALONG WITH FEW NORMAL SKIN LALY Susceptibility Escherichia Coli PRESTON METHOD AMP/SULBACTAM >=32/16 Resistant Ampicillin >=32 Resistant Cefazolin <=4 (VIEW NOTES) [1] Ceftriaxone <=1 Susceptible Ciprofloxacin >=4 Resistant Gentamicin <=1 Susceptible Levofloxacin >=8 Resistant PIPERACIL/TAZOBACTAM <=4 Susceptible Tobramycin <=1 Susceptible TRIMETH/SULFAMETHOXAZOLE >=16/304 Resistant [1] CLSI interpretive criteria for nonurinary isolates are as follows: <=2 Susceptible, 4 Intermediate, Resistant >=8. Contact Microbiology laboratory if further susceptibility testing for Cefazolin is required. Susceptibility Staphylococcus Aureus PRESTON METHOD Cefazolin RESISTANT(DEDUCED) Clindamycin 0.25 Resistant [1] Doxycycline <=0.5 Susceptible [2] Oxacillin >=4 Resistant TRIMETH/SULFAMETHOXAZOLE <=0.5/9.5 Susceptible Vancomycin <=0.5 Susceptible [1] INDUCIBLE RESISTANCE TO CLINDAMYCIN DETECTED [2] CLIA ID [id number] Blood Culture [[id number]] Collected: 03/24/24 1218 Specimen: Blood Updated: 12/26/23 1303 Culture NO GROWTH 4 DAYS Blood Culture [[id number]] Collected: 12/22/231217 Specimen: Blood Updated: 12/26/23 1303 Culture NO GROWTH 4 DAYS No results found. All available laboratory, imaging, and microbiology data has been personally reviewed in detail, and accessible in full per EMR. Medications: aspirin, 81 mg, oral, Daily atorvastatin, 20 mg, oral, Nightly cefTRIAXone (ROCEPHIN) IV, 2,000 mg, intravenous, Q24H [START ON 12/27/2023] doxycycline, 100 mg, oral, BID heparin (porcine), 5,000 Units, subcutaneous, Q12H PAUL metoprolol (LOPRESSOR) IV, 5 mg, intravenous, Once metoprolol tartrate, 50 mg, oral, BID pantoprazole, 40 mg, oral, QAM AC sodium hypochlorite, 1 Application, topical, BID vancomycin, 1,250 mg, intravenous, Q24H Infusion: dextrose 5 % in water, 100 mL/hr dextrose 5 % in water 1,000 mL with potassium chloride 40 mEq, sodium bicarbonate 8.4 % (1 mEq/mL) 50 mEq infusion, 75 mL/hr, Last Rate: 75 mL/hr (12/26/23 0614) sodium chloride 0.9 %, 20 mL/hr, Last Rate: Stopped (12/25/23 0539) sodium chloride 0.9 %, 20 mL/hr PRN medications: acetaminophen ALPRAZolam calcium gluconate calcium gluconate calcium gluconate dextrose dextrose 5 % in water dextrose 50 % in water (D50W) glucagon (human recombinant) iohexoL iohexoL levalbuterol magnesium sulfate magnesium sulfate metoprolol (LOPRESSOR) IV OLANZapine ondansetron potassium chloride OR potassium chloride sodium chloride sodium chloride sodium chloride sodium chloride 0.9 % sodium chloride 0.9 % sodium chloride sodium chloride ASSESSMENT and plan: Active Hospital Problems Diagnosis Date Noted Adenocarcinoma of rectum ([facility]) 12/24/2023 Septic shock ([facility]) 12/22/2023 Pressure injury of sacral region, stage 4 ([facility]) 10/21/2023 Resolved Problems No resolved problems to display. - Atrial fibrillation with RVR- rate is controlled now - Hx of atypical flutter s/p ablation 02/2022 - Elevated troponin: - Hx of non obstructive CAD on [facility] 2020: - Chronic CHF with improved EF (40-45%): - No chest pain. EKG shows diffuse ST segment depression ( old). [id number] score: 5 S/p intermittent doses of digoxin. Appreciate cardiology input. Plan for coronary CTA. Continue metoprolol tartrate 50 mg p.o. b.I.d. aspirin 81 mg p.o. daily and Lipitor 20 mg p.o. q.h.s.. Rule out sepsis: - Potential source is UTI versus pneumonia. - Distended gallbladder is noted on CT. Low suspicion for acute cholecystitis per General surgery. - Negative respiratory pathogen panel. Urine cultures are growing Enterococcus. Wound cultures are growing multipleorganisms. - discussed with infectious disease. Will finish IV vancomycin, ceftriaxone and Flagyl today then switch to 1 month of p.o. doxycycline. - Chronic Sacral decubitus ulcer - Hx of sacral osteomyelitis 09/2023 s/p I&D: No signs of decubitus ulcer wound infection. Continue with wound care. Cleanse with cleanser, pat dry/apply no sting barrier wipe to periwound skin. Apply 4th strength Dakin's moist gauze to wound bed covered with ABD. Change twice daily. - will discuss treatment plan with the wound care team. Suspected recurrent rectal bleed on AC- stopped Acute blood loss anemia, anemia of chronic disease Rectal adenocarcinoma Hx of GI bleed requiring ex-lap with small bowel resection and colostomy creation 09/2023. - Hx of EGD/colonoscopy 10/23/2023 showing severe esophagitis, perianal fistula, multiple polyps and large lesion in the distal rectum - s/p 1 unit PRBC 12/26/2023. - Regular diet per General surgery. - Medical Oncology and Radiation Oncology on consult. Plan for MRI rectal protocol to be completed today. - Left lung apex pleural opacity- atelectasis more likely than pneumonia - Precarinal mediastinal node measuring 12 mm compared to 9 mm previously - Pulmonology on consult. Plan for outpatient follow-up and potential EBUS. Acute metabolic encephalopathy: Improving. Delirium precautions. Zyprexa 2.5 mg IM q.6 hours p.r.n. for agitation. CKD stage IIIA- previously required HD Currently stable. Cleared for MRI gadolinium by Nephrology. Hypocalcemia: Replace and monitor. DVT prophylaxis: SCDs. No pharmacological prophylaxis due to rectal bleed. Code Status: Full. Disposition: To be determined later. Current care plan discussed in detail with the patient. She verbalized understanding. Further management will follow based on the clinical course of the patient and results of ongoing evaluation Electronically signed by: BRANDON CARRILLO MD 12/26/2023 Preferred contact method: #1. Epic chat #2. [facility] team pager Available from 7 am to 7 pm For after hours, please page [facility] night team. Disclaimer Note: To increase efficiency, your provider may have prepared this document using voice recognition technology. In that case, if a word or phrase is confusing, or does not make sense, this is likely due to a recognition error within the program which was not discovered during the provider s review. If you believe an error has occurred, please notify your provider s office at your earliest convenience, so we can correct any mistakes. IP Day: 4 Subjective: Patient continues to have rectal bleeding. Required 1unit of pRBC. Patient resting comfortably in bed this morning. On room air. Vitals normal. Complaining of some sacral pain where wound is and some abdominal pain. Ostomy still productive. Objective: Vitals: 12/26/23 0600 BP: 143/82 Pulse: 88 Resp: Temp: SpO2: 98% Temp: [36.5 C (97.7 F)-36.7 C (98.1 F)] 36.6 C (97.9 F) Pulse: [66-112] 88 Resp: [16-20] 18 BP: (105-153)/(56-91) 143/82 SpO2: [94 %-100 %] 98 % O2 Device: None (Room air) Allergies Allergen Reactions Oats Intake/Output last 3 shifts: I/O last 3 completed shifts: In: 5595.8 [P.O.:300; I.V.:3843.1; Blood:330; IV Piggyback:1122.6] Out: 1881 [Urine:1825; Stool:56] Intake/Output this shift: No intake/output data recorded. Dietary Orders (From admission, onward) Start Ordered 12/25/23 1151 Adult diet Regular Texture Diet effective now Question: Diet Type: Answer: Regular Texture 12/25/23 1150 Physical Exam General Appearance: Awake, Alert & Oriented x3, No Acute Distress. Neck: Trachea Midline, No elevated Jugular Venous Pressure. Pulmonary: Unlabored breathing. No expiratory wheeze. Cardiac: Regular rhythm and rate. Abdomen: Soft, right upper quadrant and left lower quadrant slightly tender, non-distended, no rebound, no guarding. Midline wound healthy. Extremity: Full Range of Motion, No edema Bilateral Upper Extremities Skin: Dry. Non-icteric. No Rash. Eyes: Pupils Equal and Round, Non-icteric Laboratory Data: Lab Results Component Value Date WBC 13.3 (H) 12/26/2023 HGB 8.8 (L) 12/26/2023 HCT 27.4 (L) 12/26/2023 MCV 91 12/26/2023 PLT 170 12/26/2023 Lab Results Component Value Date GLU 112 (H) 12/26/2023 CALCIUM 6.8 (LL) 12/26/2023 K 4.3 12/26/2023 CO2 18 (L) 12/26/2023 CL 110 (H) 12/26/2023 BUN 20 12/26/2023 CREATININE 1.11 (H) 12/26/2023 No results found for: AMYLASE Lab Results Component Value Date LIPASE 135 (H) 12/22/2023 Lab Results Component Value Date ALT 16 12/26/2023 AST 23 12/26/2023 ALKPHOS 171 (H) 12/26/2023 Lab Results Component Value Date INR 1.2 (H) 12/22/2023 INR 1.2 (H) 11/08/2023 INR 1.3 (H) 11/07/2023 PROTIME 13.8 (H) 12/22/2023 PROTIME 14.0 (H) 11/08/2023 PROTIME 14.7 (H) 11/07/2023 aspirin, 81 mg, oral, Daily atorvastatin, 20 mg, oral, Nightly heparin (porcine), 5,000 Units, subcutaneous, Q12H PAUL metoprolol tartrate, 50 mg, oral, BID metroNIDAZOLE, 500 mg, oral, Q12H PALU pantoprazole, 40 mg, oral, QAM AC sodium hypochlorite, 1 Application, topical, BID vancomycin, 1,250 mg, intravenous, Q24H acetaminophen calcium gluconate calcium gluconate calcium gluconate dextrose dextrose 5 % in water dextrose 50 % in water (D50W) glucagon (human recombinant) iohexoL iohexoL levalbuterol magnesium sulfate magnesium sulfate metoprolol (LOPRESSOR) IV OLANZapine ondansetron potassium chloride OR potassium chloride sodium chloride sodium chloride sodium chloride sodium chloride 0.9 % sodium chloride 0.9 % sodium chloride sodium chloride Assessment: Harris Castrejon is a 68 y.o. female whom is Hospital Day: 5 with significant past medical history who was recently in the ICU in October of 2023 secondary to GI bleed requiring exploratory laparotomy with small-bowel resection and colostomy creation. 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 Here after becoming tachycardic and hypotensive during MRI. Right upper quadrant ultrasound showing gallbladder distention with internal debris/sludge. No gallbladder wall thickening to suggest acute cholecystitis. Unlikely source for patient's deterioration. Hemoglobin Slightly down 8.1 > 7.9 > 7.1 > 7.3 > 7.9 > 6.9 > 6.8 > 8.8 Plan: Patient is poor surgical candidate at this time Radiation oncology and oncology recommending pelvic MRI for further plans Hold heparin drip for now due to rectal bleeding Monitor hemoglobin q8h Okay for regular diet from surgery standpoint Serial abdominal exams Follow up cultures Wound care per wound care team Pain and nausea control as needed Rest of care per primary Ryan Amador MD General Surgery Resident, PGY-1 Colorectal Surgery 6a-6p pager # [phone] 6p-6a pager #[phone] Associated attestation - Mitra Crowell MD - 12/26/2023 2:21 PM EDT Attending Attestation: I saw the patient. I participated and was physically present during the critical/greenberg portions of the service. I was directly involved in the management and treatment plan of the patient. I reviewed the resident's note. Additional Notes/Findings: Plan for MRI to evaluate rectal cancer Images from the original note were not included. Division of Infectious Diseases - Progress Note Team 1 Please contact us via PISTIS Consult chat. After hours, call [phone] Patient name: Harris Castrejon Patient Today's Date and Time: 12/25/2023, 6:13 PM Admission Date: 12/22/2023 Impression : Chronically ill patient with a very large number of medical problems who recently developed a huge sacrococcygeal ulcer which was treated with Unasyn for 6 weeks for potential osteomyelitis of the sacrum/coccyx. She presented with atrial fibrillation with RVR which could explain the leukocytosis. Her coccyx wound looks quite clean but is very deep; some bone is palpable, but no purulence whatsoever. Her blood cultures are negative and she is awake but she looks chronically ill. She does not look septic at all. Her abdominal exam is NOT revealing signs consistent with cholecystitis. The superficial culture taken at the bedside has no meaning and should be ignored Recommendations: Ceftriaxone flagyl vancomycin till tomorrow, then switch to doxycycline for a month Consider wound vac instead of dakins. Both abdominal wound and coccyx wounds look much much better than in the admission pictures, so clearly she needs more aggressive wound care at the facility Subjective Interval History: No more SOB, no chest pain Some abdominal discomfort No rash WBC down to 13 Developed rectal bleed overnight, surgery involved, no procedure planned, recommended monitoring H/H Objective Physical Examination : BP 108/84 Pulse 69 Temp 36.6 C (97.8 F) (Oral) Resp 20 Ht 162.6 cm (5' 4 ) Wt 98.5 kg (217 lb 2.5 oz) SpO2 98% BMI 37.27 kg/m Temperature Range: Temp: 36.6 C (97.8 F) Temp Av.7 C (98 F) Min: 36.4 C (97.5 F) Max: 36.9 C (98.4 F) General Appearance: Awake, alert, and in no apparent distress, nontoxic Eyes: Sclera anicteric; conjunctivae pale Neck: Supple, without lymphadenopathy. Pulmonary/Chest: Clear to auscultation, without wheezes, rales, no rhonchi Cardiovascular: Regular rate and rhythm without murmurs Abdomen: soft, non-tender, large pannus Abdominal wound is superficial and looks immersion metal cleaner Buttock wound is large deep to bone, but no purulence, no odor, no necrosis. Some bone exposed and moving. She has good sensation. No active bleeding at the time of my exam Extremities: No cyanosis, edema, no joint effusions. Neurologic: moves all extremities Skin: No rash no lesions. + pallor Laboratory data: I have independently reviewed the following labs: Results from last 7 days Lab Units 12/25/23 1307 12/25/23 0549 12/24/23 2321 12/24/23 0520 12/23/23 0945 12/23/23 0326 WBC X10E9/L -- 13.0* -- 17.9* -- 13.9* HEMOGLOBIN g/dL 7.9* 7.3* 7.1* 7.9* < > 8.2* HEMATOCRIT % 24.1* 22.6* 22.2* 24.4* < > 25.4* MCV fL -- 90 -- 90 -- 90 PLATELETS X10E9/L -- 189 -- 211 -- 176 NEUTROS ABS X10E9/L -- 10.4* -- 14.8* -- 12.7* LYMPHS ABS AUTO X10E9/L -- 1.4 -- 1.8 -- 0.8* MONOS ABS AUTO X10E9/L -- 1.0* -- 1.1* -- 0.3 EOS ABS AUTO X10E9/L -- 0.1 -- 0.1 -- 0.0 BASOS ABS AUTO X10E9/L -- 0.1 -- 0.1 -- 0.0 < > = values in this interval not displayed. Results from last 7 days Lab Units 12/25/23 0549 12/24/23 1710 12/24/23 0520 12/23/23 0326 SODIUM mmol/L 143 141 144 142 POTASSIUM mmol/L 4.4 4.2 4.0 4.5 CHLORIDE mmol/L 115* 113* 115* 111* CO2 mmol/L 20* 20* 19* 22 BUN mg/dL CREATININE mg/dL 1.14* 1.11* 1.17* 1.17* CALCIUM mg/dL 6.8* 6.7* 6.8* 7.1* ALK PHOS U/L 174* -- 198* 261* ALT U/L 16 -- 18 23 AST U/L 23 -- 23 33 Results from last 7 days Lab Units 12/22/23 1841 SED RATE mm/h 20 HEMOGLOBIN A1C % 6.8* Results from last 7 days Lab Units 12/22/23 1337 12/22/23 1326 SPECIFIC GRAVITY KALINA 1.020 -- LEUKOCYTE ESTERASE KALINA Trace* -- UROBILINOGEN KALINA eu/dL 1.0 -- RBC UA /hpf -- 3 WBC UA /hpf -- 40* Imaging Studies: X-ray chest 1 view Result Date: 12/23/2023 XR CHEST 1 VW History: Short of breath. One view study. Comparison: 12/22/2023 and 11/30/2023 Impression: * No significant interval change.Cardiac silhouette remains grossly enlarged but unchanged. This may represent cardiomegaly and/or pericardial effusion. Chronic elevation the right hemidiaphragm is noted. Unchanged left PICC line. No acute pulmonary process is seen. No large effusion is noted Finalized by Yany Vargas MD on 12/23/2023 2:11 PM Vas venous duplex lwr bilateral Result Date: 12/23/2023 Right: Lower extremity deep veins are compressible with spontaneous phasic spectral Doppler waveforms; superficial veins are compressible without intraluminal content. Left: Lower extremity deep veins are compressible with spontaneous phasic spectral Doppler waveforms; superficial veins are compressible without intraluminal content. General: Incidental finding of left nodular mass without color flow in the groin. Conclusions: BILATERAL: NO EVIDENCE of deep or superficial vein thrombosis of the lower extremities. LEFT:Incidental finding may warrant further investigation Recommendations: Any questions prior to finalization, please call the reading physician during normal business hours at the phone number beside their name. I have personally reviewed the above studies . Cultures: Microbiology Results Procedure Component Value Units Date/Time Resp Pathogens Panel/SARS CoV-2 [[id number]] Collected: 12/25/23 1158 Specimen: Nasopharynx Updated: 12/25/23 1427 Specimen Source NASO PHARYNX Adenovirus Detection by PCR Not Detected Coronavirus 229e Not Detected Coronavirus hku1 Not Detected Coronavirus nl63 Not Detected Coronavirus oc43 Not Detected Human metapneumovirus Not Detected Rhinovirus/enterovirus Not Detected Influenza A Not Detected Influenza B Not Detected Parainfluenza 1 Not Detected Parainfluenza 2 Not Detected Parainfluenza 3 Not Detected Parainfluenza 4 Not Detected Respiratory syncytial virus Not Detected Bordetella parapertussis Not Detected Bordetella pertussis Not Detected Chlamydophila pneumophilia Not Detected Mycoplasma pneumoniae Not Detected SARS COV 2 Not Detected Urine culture [[id number]] (Abnormal) Collected: 12/22/23 1326 Specimen: Urine from Dasilva Catheter Specimen Updated: 12/24/23 1115 Culture >100,000 ORGANISMS/mL ENTEROCOCCUS SPECIES Ampicillin or Amoxicillin is the drug of choice for uncomplicated cystitis caused by enterococci. Cephalosporins are inappropriate. 50,000 to 100,000 ORGANISMS/mL NORMAL URO GENITAL LALY The urine of patients with catheters usually becomes colonized. Treatment may not be indicated. Correlate these findings with clinical presentation. If sepsis is suspected, contact laboratory for reporting AST results. DR MEDINA REQUESTED SUSCEPTIBILITY 12/23 CULTURE IN PROGRESS Wound culture superficial includes gram stain [[id number]] (Abnormal) (Susceptibility) Collected: 12/22/23 1231 Specimen: Wound Swab Updated: 12/25/23 0904 Gram Stain Result >25 WHITE BLOOD CELLS/LPF 10 to 24 SQUAMOUS EPITHELIAL CELLS/LPF RARE GRAM POSITIVE COCCI IN CLUSTERS INTRACELLULAR EXTRACELLULAR RARE PLEOMORPHIC GRAM POSITIVE RODS Culture FEW ESCHERICHIA COLI RARE STAPHYLOCOCCUS AUREUS METHICILLIN RESISTANT RARE STREPTOCOCCUS PYOGENES (GROUP A) ALONG WITH FEW NORMAL SKIN LALY Susceptibility Escherichia Coli PRESTON METHOD AMP/SULBACTAM >=32/16 Resistant Ampicillin >=32 Resistant Cefazolin <=4 (VIEW NOTES) [1] Ceftriaxone <=1 Susceptible Ciprofloxacin >=4 Resistant Gentamicin <=1 Susceptible Levofloxacin >=8 Resistant PIPERACIL/TAZOBACTAM <=4 Susceptible Tobramycin <=1 Susceptible TRIMETH/SULFAMETHOXAZOLE >=16/304 Resistant [1] CLSI interpretive criteria for nonurinary isolates are as follows: <=2 Susceptible, 4 Intermediate, Resistant >=8. Contact Microbiology laboratory if further susceptibility testing for Cefazolin is required. Susceptibility Staphylococcus Aureus PRESTON METHOD Cefazolin RESISTANT(DEDUCED) Clindamycin 0.25 Resistant [1] Doxycycline <=0.5 Susceptible [2] Oxacillin >=4 Resistant TRIMETH/SULFAMETHOXAZOLE <=0.5/9.5 Susceptible Vancomycin <=0.5 Susceptible [1] INDUCIBLE RESISTANCE TO CLINDAMYCIN DETECTED [2] CLIA ID [id number] Blood Culture [[id number]] Collected: 12/22/231217 Specimen: Blood Updated: 12/25/23 130 Culture NO GROWTH 3 DAYS Blood Culture [[id number]] Collected: 12/22/23 121 Specimen: Blood Updated: 12/25/23 1303 Culture NO GROWTH 3 DAYS Medications: aspirin, 81 mg, oral, Daily atorvastatin, 20 mg, oral, Nightly cefTRIAXone (ROCEPHIN) IV, 2,000 mg, intravenous, Q24H heparin (porcine), 5,000 Units, subcutaneous, Q12H PAUL metoprolol tartrate, 50 mg, oral, BID metroNIDAZOLE, 500 mg, intravenous, Q8H pantoprazole, 40 mg, oral, QAM AC sodium hypochlorite, 1 Application, topical, BID vancomycin, 1,250 mg, intravenous, Q24H This progress note was completed using a voice workforce management manager system. Every effort was made to ensure accuracy; however, inadvertent computerized workforce management manager errors may be present. Thank you for allowing us to participate in the care of this patient. - ROBERT GARCÍA MD 12/25/23 6:13 PM [facility] Infectious Diseases Please contact us via PISTIS Consult chat Images from the original note were not included. [facility] Physicians Hospitalists Progress Note 12/25/2023 Patient Name: Harris Castrejon : 1955 Hospital Day: 4 SUBJECTIVE Follow-up for Abdominal pain. The patient seen and examined. She had bright red blood around the sacral area last night in it was not clear if it was rectal bleeding or wound bleeding. Heparin drip was discontinued. The patient has intermittent confusion. She is alert and oriented x2 this morning and reports some nonspecific mild generalized abdominal pain with no radiation. I was asked to take over this case as primary team today. I called the patient's to discuss the current diagnosis and treatment plan in addition to ask him about any concerns or questions that he might have. He seemed upset because of the call and asked me to not call him again because it is dangerous for him to talk on the phone while driving . I offered to meet him at the bedside in person when he gets here and he informed me that there was no reason for us to meet. He is interested in Oncology workup and plan at this point and he informed me that he talked to the oncologist already yesterday. Past Medical History: Diagnosis Date Arrhythmia Hypertension Injury of back Disc L4 and L5 Obesity Respiratory distress 10/19/2023 Septic shock ([facility]) 12/22/2023 Systolic and diastolic CHF, acute ([facility]) 09/03/2023 Visual impairment Past Surgical History: Procedure Laterality Date APPLICATION WOUND VAC N/A 11/07/2023 Performed by Mitra Crowell MD at [facility] Cardiac catheterization 02/16/2021 Performed by Kelli Su MD at [facility] CARDIAC CATH LABS Caval Tricuspid Isthmus RFA, Carto w/ICE N/A 03/21/2021 Performed by Lurdes Weinberg MD at [facility] HRC (EP) COLONOSCOPY POLYPECTOMY N/A 10/23/2023 Performed by Soy Talamantes MD at [facility] Coronary angiogram and left ventricular gram/pressure N/A 02/16/2021 Performed by Kelli Su MD at [facility] CARDIAC CATH LABS Coronary fractional flow reserve N/A 02/16/2021 Performed by Kelli Su MD at [facility] CARDIAC CATH LABS CREATION OF END COLOSTOMY N/A 11/07/2023 Performed by Mitra Crowell MD at [facility] ESOPHAGOGASTRODUODENOSCOPY DIAGNOSTIC N/A 10/23/2023 Performed by Soy Talamantes MD at [facility] EXAM UNDER ANESTHESIA WITH BRECTAL BIOPSY N/A 11/28/2023 Performed by Mitra Crowell MD at [facility] EXAM UNDER ANESTHESIA/RECTAL MASS BIOPSY N/A 10/25/2023 Performed by Mitra Crowell MD at [facility] FLEXIBLE SIGMOIDOSCOPY N/A 10/25/2023 Performed by Mitra Crowell MD at [facility] FLEXIBLE SIGMOIDOSCOPY WITH BIOPSY N/A 11/28/2023 Performed by Mitra Crowell MD at [facility] INSCISIONAL DEBRIDEMENT SACRUM N/A 10/20/2023 Performed by Magdi Matthew MD at [facility] INSERT ARTERIAL LINE 11/05/2023 INSERT ARTERIAL LINE 11/07/2023 Intravascular pressure measurement first vessel each additional vessel (fractional flow reserve) N/A 02/16/2021 Performed by Kelli Su MD at [facility] CARDIAC CATH LABS INTUBATION 11/07/2023 LAPAROTOMY EXPLORATORY N/A 11/07/2023 Performed by Mitra Crowell MD at [facility] MYRINGOTOMY W/ TUBES RESECTION BOWEL SMALL N/A 11/07/2023 Performed by Mitra Crowell MD at [facility] TONSILLECTOMY OBJECTIVE Vital Signs: Temp: [36.3 C (97.4 F)-36.9 C (98.4 F)] 36.6 C (97.8 F) Pulse: [81-112] 81 Resp: [17-20] 20 BP: (112-146)/(56-91) 133/56 SpO2: [96 %-100 %] 100 % O2 Device: Nasal cannula O2 Flow Rate (L/min): [1 L/min] 1 L/min Weight: Body mass index is 37.27 kg/m . Admission weight: 90.3 kg (199 lb 1.2 oz) Wt Readings from Last 3 Encounters: 12/25/23 98.5 kg (217 lb 2.5 oz) 12/19/23 90.3 kg (199 lb 1.2 oz) 12/03/23 90.3 kg (199 lb 1.2 oz) Input/Output: Intake/Output Summary (Last 24 hours) at 12/25/2023 1542 Last data filed at 12/25/2023 1412 Gross per 24 hour Intake 2892.01 ml Output 1251 ml Net 1641.01 ml Physical Exam: General appearance: Alert, cooperative, no distress. Eyes: PERRLA, EOM's intact Conjunctiva/corneas moist and clear, no pallor or icterus. ENT: Oropharynx clear with moist mucous membranes and no mucosal ulcerations. No thrush. External ears and nose are normal without lesions or scars. Respiratory: Normal work of breathing. No use of accessory muscles. No wheezing, rhonchi or crackles. Cardiovascular: Regular rate and rhythm, S1, S2 normal, no murmur, rub or gallop. No LE edema. Abdomen: Soft, non-tender, no masses. Colostomy bag in place with midline abdominal wound. No surrounding erythema or discharge. Skin: No rashes, lesions or ulcers. No induration or subcutaneous nodules. Psychiatric: Slightly confused. Oriented to self, place and year. Disoriented to month and day of the week. Labs/Imaging: Recent Results (from the past 24 hour(s)) Basic Metabolic Panel Collection Time: 12/24/23 5:10 PM Result Value Ref Range Sodium 141 134 - 146 mmol/L Potassium, Bld 4.2 3.5 - 5.0 mmol/L Chloride 113 (H) 98 - 109 mmol/L CO2 20 (L) 22 - 32 mmol/L Anion gap 8 5 - 15 mmol/L BUN 26 5 - 27 mg/dL Creatinine 1.11 (H) 0.40 - 1.00 mg/dL Glucose 95 65 - 99 mg/dL Calcium 6.7 (LL) 8.5 - 10.5 mg/dL eGFR (CKD-EPI)non-race dependent 55 (L) >59 ml/min/1.73sq.m Hemoglobin and hematocrit, blood Collection Time: 12/24/23 11:21 PM Result Value Ref Range Hemoglobin 7.1 (L) 11.7 - 15.5 g/dL Hematocrit 22.2 (L) 35 - 47 % Troponin I Collection Time: 12/24/23 11:21 PM Result Value Ref Range Troponin I 0.10 (H) 0.00 - 0.04 ng/mL Ionized calcium Collection Time: 12/25/23 12:47 AM Result Value Ref Range Calcium, ionized 4.4 (L) 4.5 - 5.3 mg/dL Comprehensive metabolic panel Collection Time: 12/25/23 5:49 AM Result Value Ref Range Sodium 143 134 - 146 mmol/L Potassium, Bld 4.4 3.5 - 5.0 mmol/L Chloride 115 (H) 98 - 109 mmol/L CO2 20 (L) 22 - 32 mmol/L Anion gap 8 5 - 15 mmol/L BUN 24 5 - 27 mg/dL Creatinine 1.14 (H) 0.40 - 1.00 mg/dL Glucose 96 65 - 99 mg/dL Calcium 6.8 (LL) 8.5 - 10.5 mg/dL Total Protein 5.0 (L) 6.0 - 8.0 g/dL Albumin 2.1 (L) 3.2 - 5.3 g/dL Alkaline Phosphatase 174 (H) 39 - 130 U/L AST 23 0 - 41 U/L ALT 16 0 - 31 U/L Total bilirubin 0.4 0.3 - 1.2 mg/dL eGFR (CKD-EPI)non-race dependent 53 (L) >59 ml/min/1.73sq.m CBC auto differential Collection Time: 12/25/23 5:49 AM Result Value Ref Range White Blood Cells 13.0 (H) 4.0 - 11.0 X10E9/L RBC count 2.50 (L) 3.80 - 5.20 X10E12/L Hemoglobin 7.3 (L) 11.7 - 15.5 g/dL Hematocrit 22.6 (L) 35 - 47 % MCV 90 80 - 100 fL MCH 29.1 27 - 34 pg MCHC 32.2 32 - 36 g/dL RDW 18.3 (H) 11.5 - 15.0 % Platelets 189 150 - 450 X10E9/L MPV 8.8 7 - 12 fL % neutrophils 80.5 % % lymphocytes 10.6 % % monocytes 7.5 % % eosinophils 0.9 % % Basophils 0.5 % Neutrophils Absolute (A) 10.4 (H) 1.5 - 6.6 X10E9/L Lymphocytes Absolute 1.4 1.0 - 3.5 X10E9/L Monocytes Absolute 1.0 (H) 0 - 0.9 X10E9/L Eosinophils Absolute 0.1 0.0 - 0.4 X10E9/L Basophils Absolute 0.1 0.0 - 0.2 X10E9/L Anti XA unfractionated heparin Collection Time: 12/25/23 5:49 AM Result Value Ref Range Heparin anti-xa, unfractionated <0.04 (L) 0.30 - 0.70 IU/mL Ionized calcium Collection Time: 12/25/23 7:18 AM Result Value Ref Range Calcium, ionized 4.4 (L) 4.5 - 5.3 mg/dL Bedside Glucose *Place/Obtain serum glucose if >500(>600 [facility]) per glucometer. Collection Time: 12/25/23 7:44 AM Result Value Ref Range Bedside glucose 99 65 - 99 mg/dL Bedside Glucose *Place/Obtain serum glucose if >500(>600 [facility]) per glucometer. Collection Time: 12/25/23 11:12 AM Result Value Ref Range Bedside glucose 112 (H) 65 - 99 mg/dL Resp Pathogens Panel/SARS CoV-2 Collection Time: 12/25/23 11:58 AM Result Value Ref Range Specimen Source NASO PHARYNX Adenovirus Detection by PCR Not Detected Not Detected^Not Detected Coronavirus 229e Not Detected Not Detected^Not Detected Coronavirus hku1 Not Detected Not Detected^Not Detected Coronavirus nl63 Not Detected Not Detected^Not Detected Coronavirus oc43 Not Detected Not Detected^Not Detected Human metapneumovirus Not Detected Not Detected^Not Detected Rhinovirus/enterovirus Not Detected Not Detected^Not Detected Influenza A Not Detected Not Detected^Not Detected Influenza B Not Detected Not Detected^Not Detected Parainfluenza 1 Not Detected Not Detected^Not Detected Parainfluenza 2 Not Detected Not Detected^Not Detected Parainfluenza 3 Not Detected Not Detected^Not Detected Parainfluenza 4 Not Detected Not Detected^Not Detected Respiratory syncytial virus Not Detected Not Detected^Not Detected Bordetella parapertussis Not Detected Not Detected^Not Detected Bordetella pertussis Not Detected Not Detected^Not Detected Chlamydophila pneumophilia Not Detected Not Detected^Not Detected Mycoplasma pneumoniae Not Detected Not Detected^Not Detected SARS COV 2 Not Detected Not Detected^Not Detected Hemoglobin and hematocrit, blood Collection Time: 12/25/23 1:07 PM Result Value Ref Range Hemoglobin 7.9 (L) 11.7 - 15.5 g/dL Hematocrit 24.1 (L) 35 - 47 % Microbiology Results Procedure Component Value Units Date/Time Resp Pathogens Panel/SARS CoV-2 [[id number]] Collected: 12/25/23 1158 Specimen: Nasopharynx Updated: 12/25/23 1427 Specimen Source NASO PHARYNX Adenovirus Detection by PCR Not Detected Coronavirus 229e Not Detected Coronavirus hku1 Not Detected Coronavirus nl63 Not Detected Coronavirus oc43 Not Detected Human metapneumovirus Not Detected Rhinovirus/enterovirus Not Detected Influenza A Not Detected Influenza B Not Detected Parainfluenza 1 Not Detected Parainfluenza 2 Not Detected Parainfluenza 3 Not Detected Parainfluenza 4 Not Detected Respiratory syncytial virus Not Detected Bordetella parapertussis Not Detected Bordetella pertussis Not Detected Chlamydophila pneumophilia Not Detected Mycoplasma pneumoniae Not Detected SARS COV 2 Not Detected Urine culture [[id number]] (Abnormal) Collected: 12/22/23 1326 Specimen: Urine from Dasilva Catheter Specimen Updated: 12/24/23 1115 Culture >100,000 ORGANISMS/mL ENTEROCOCCUS SPECIES Ampicillin or Amoxicillin is the drug of choice for uncomplicated cystitis caused by enterococci. Cephalosporins are inappropriate. 50,000 to 100,000 ORGANISMS/mL NORMAL URO GENITAL LALY The urine of patients with catheters usually becomes colonized. Treatment may not be indicated. Correlate these findings with clinical presentation. If sepsis is suspected, contact laboratory for reporting AST results. DR MEDINA REQUESTED SUSCEPTIBILITY 12/23 CULTURE IN PROGRESS Wound culture superficial includes gram stain [[id number]] (Abnormal) (Susceptibility) Collected: 12/22/23 1231 Specimen: Wound Swab Updated: 12/25/23 0904 Gram Stain Result >25 WHITE BLOOD CELLS/LPF 10 to 24 SQUAMOUS EPITHELIAL CELLS/LPF RARE GRAM POSITIVE COCCI IN CLUSTERS INTRACELLULAR EXTRACELLULAR RARE PLEOMORPHIC GRAM POSITIVE RODS Culture FEW ESCHERICHIA COLI RARE STAPHYLOCOCCUS AUREUS METHICILLIN RESISTANT RARE STREPTOCOCCUS PYOGENES (GROUP A) ALONG WITH FEW NORMAL SKIN LALY Susceptibility Escherichia Coli PRESTON METHOD AMP/SULBACTAM >=32/16 Resistant Ampicillin >=32 Resistant Cefazolin <=4 (VIEW NOTES) [1] Ceftriaxone <=1 Susceptible Ciprofloxacin >=4 Resistant Gentamicin <=1 Susceptible Levofloxacin >=8 Resistant PIPERACIL/TAZOBACTAM <=4 Susceptible Tobramycin <=1 Susceptible TRIMETH/SULFAMETHOXAZOLE >=16/304 Resistant [1] CLSI interpretive criteria for nonurinary isolates are as follows: <=2 Susceptible, 4 Intermediate, Resistant >=8. Contact Microbiology laboratory if further susceptibility testing for Cefazolin is required. Susceptibility Staphylococcus Aureus PRESTON METHOD Cefazolin RESISTANT(DEDUCED) Clindamycin 0.25 Resistant [1] Doxycycline <=0.5 Susceptible [2] Oxacillin >=4 Resistant TRIMETH/SULFAMETHOXAZOLE <=0.5/9.5 Susceptible Vancomycin <=0.5 Susceptible [1] INDUCIBLE RESISTANCE TO CLINDAMYCIN DETECTED [2] CLIA ID [id number] Blood Culture [[id number]] Collected: 12/22/23 1218 Specimen: Blood Updated: 12/25/23 1303 Culture NO GROWTH 3 DAYS Blood Culture [[id number]] Collected: 12/22/23 1218 Specimen: Blood Updated: 12/25/23 1303 Culture NO GROWTH 3 DAYS No results found. All available laboratory, imaging, and microbiology data has been personally reviewed in detail, and accessible in full per EMR. Medications: aspirin, 81 mg, oral, Daily atorvastatin, 20 mg, oral, Nightly cefTRIAXone (ROCEPHIN) IV, 2,000 mg, intravenous, Q24H metoprolol tartrate, 50 mg, oral, BID metroNIDAZOLE, 500 mg, intravenous, Q8H pantoprazole, 40 mg, oral, QAM AC sodium hypochlorite, 1 Application, topical, BID vancomycin, 1,250 mg, intravenous, Q24H Infusion: dextrose 5 % in water, 100 mL/hr dextrose 5 % in water 1,000 mL with potassium chloride 40 mEq, sodium bicarbonate 8.4 % (1 mEq/mL) 50 mEq infusion, 75 mL/hr, Last Rate: 75 mL/hr (12/25/23 1413) sodium chloride 0.9 %, 20 mL/hr, Last Rate: Stopped (12/25/23 0539) PRN medications: acetaminophen calcium gluconate calcium gluconate calcium gluconate dextrose dextrose 5 % in water dextrose 50 % in water (D50W) glucagon (human recombinant) iohexoL levalbuterol magnesium sulfate magnesium sulfate metoprolol (LOPRESSOR) IV ondansetron potassium chloride OR potassium chloride sodium chloride sodium chloride sodium chloride 0.9 % sodium chloride ASSESSMENT and plan: Active Hospital Problems Diagnosis Date Noted 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 - Atrial fibrillation with RVR- - Hx of atypical flutter s/p ablation 02/2022 - Elevated troponin: - Hx of non obstructive CAD on [facility] 2020: - Chronic CHF with improved EF (40-45%): - No chest pain. EKG shows diffuse ST segment depression ( old). [id number] score: 5 Rate is controlled today. S/p intermittent doses of digoxin. Discussed with Cardiology at the bedside. Plan for coronary CTA. Increase metoprolol tartrate to 50 mg p.o. b.I.d.. Rule out sepsis: - Potential source is UTI versus pneumonia. - Distended gallbladder is noted on CT. Low suspicion for acute cholecystitis per General surgery. - Negative respiratory pathogen panel. Urine cultures are growing Enterococcus. Wound cultures are growing multipleorganisms. - continue IV ceftriaxone, IV vancomycin and IV Flagyl. - Appreciate infectious disease input. - Chronic Sacral decubitus ulcer - Hx of sacral osteomyelitis 09/2023 s/p I&D: No signs of decubitus ulcer wound infection. Continue with wound care. Suspected recurrent rectal bleed on AC- stopped Rectal adenocarcinoma Hx of GI bleed requiring ex-lap with small bowel resection and colostomy creation 09/2023. - Hx of EGD/colonoscopy 10/23/2023 showing severe esophagitis, perianal fistula, multiple polyps and large lesion in the distal rectum - Regular diet per General surgery. - Medical Oncology and Radiation Oncology on consult. Plan for MRI rectal protocol to be completed. - Left lung apex pleural opacity- atelectasis more likely than pneumonia - Precarinal mediastinal node measuring 12 mm compared to 9 mm previously - discussed with pulmonology at the bedside. Plan for outpatient follow-up and potential EBUS. Acute metabolic encephalopathy: Improving. Delirium precautions. Zyprexa 2.5 mg IM q.6 hours p.r.n. for agitation. CKD stage IIIA- previously required HD Currently stable. Cleared for MRI gadolinium by Nephrology. Chronic hypotension: On midodrine. Hypocalcemia: Replace and monitor. DVT prophylaxis: Heparin 5000 units subQ b.I.d.. Code Status: Full. Disposition: To be determined later. Current care plan discussed in detail with the patient. She verbalized understanding. Further management will follow based on the clinical course of the patient and results of ongoing evaluation I have spent 60 minutes on this encounter during, before and after the visit. This time included preparation to see the patient, evaluating the patient, performing physical exam, counseling the patient, ordering and reviewing labs and diagnostic studies, documenting the encounter and coordinating the care. Electronically signed by: BRANDON CARRILLO MD 12/25/2023 Preferred contact method: #1. Epic chat #2. [facility] team pager Available from 7 am to 7 pm For after hours, please page [facility] night team. Disclaimer Note: To increase efficiency, your provider may have prepared this document using voice recognition technology. In that case, if a word or phrase is confusing, or does not make sense, this is likely due to a recognition error within the program which was not discovered during the provider s review. If you believe an error has occurred, please notify your provider s office at your earliest convenience, so we can correct any mistakes. Images from the original note were not included. [facility] [address] [place] [address] PROGRESS NOTE Harris A Hessick Patient resting in bed, somewhat lethargic. She is complaining of middle abdominal pain. No chest pain. Review of monitor shows frequent episodes of RVR. SUBJECTIVE Allergies: Allergies Allergen Reactions Oats CURRENT MEDICATIONS aspirin, 81 mg, oral, Daily atorvastatin, 20 mg, oral, Nightly cefTRIAXone (ROCEPHIN) IV, 2,000 mg, intravenous, Q24H metoprolol tartrate, 25 mg, oral, BID metroNIDAZOLE, 500 mg, intravenous, Q8H pantoprazole, 40 mg, oral, QAM AC sodium hypochlorite, 1 Application, topical, BID vancomycin, 1,250 mg, intravenous, Q24H CONTINUOUS INFUSIONS dextrose 5 % in water, 100 mL/hr dextrose 5 % in water 1,000 mL with potassium chloride 40 mEq, sodium bicarbonate 8.4 % (1 mEq/mL) 50 mEq infusion, 75 mL/hr, Last Rate: 75 mL/hr (12/25/23 0657) heparin, 300-3,500 Units/hr, Last Rate: Stopped (12/24/232023) sodium chloride 0.9 %, 20 mL/hr, Last Rate: Stopped (12/25/23 0539) Review of Systems: Cardiovascular: No chest pain, dyspnea on exertion, palpitations or loss of consciousness. No cough, hemoptysis, pleuritic pain, or phlebitis. Respiratory: No cough or wheezing, no sputum production, no hematemesis. Neurological: No headache, diplopia, change in muscle strength, numbness or tingling. No change in gait, balance, coordination, mood, affect, memory, mentation, behavior. Hematologic/Lymphatic: No abnormal bruising or bleeding, blood clots or swollen lymph nodes. OBJECTIVE CBC: Results from last 7 days Lab Units 12/25/23 0549 12/24/23 2321 12/24/23 0520 12/23/23 0945 12/23/23 0326 WBC X10E9/L 13.0* -- 17.9* -- 13.9* HEMOGLOBIN g/dL 7.3* 7.1* 7.9* < > 8.2* HEMATOCRIT % 22.6* 22.2* 24.4* < > 25.4* MCV fL 90 -- 90 -- 90 PLATELETS X10E9/L 189 -- 211 -- 176 < > = values in this interval not displayed. BMP: Results from last 7 days Lab Units 12/25/23 0549 12/24/23 1710 12/24/23 0520 12/23/23 0326 12/22/23 1242 12/22/23 1234 SODIUM mmol/L 143 141 144 142 -- 142 POTASSIUM mmol/L 4.4 4.2 4.0 4.5 -- 4.5 CHLORIDE mmol/L 115* 113* 115* 111* -- 105 CO2 mmol/L 20* 20* 19* 22 -- 24 BUN mg/dL -- 32* CREATININE mg/dL 1.14* 1.11* 1.17* 1.17* -- 1.38* POC CREATININE -- -- -- -- < > -- CALCIUM mg/dL 6.8* 6.7* 6.8* 7.1* -- 7.8* MAGNESIUM mg/dL -- -- -- 1.9 -- 1.9 < > = values in this interval not displayed. PT/INR: Results from last 7 days Lab Units 12/22/231957 PROTIME sec 13.8* INR 1.2* APTT: MAG: Results from last 7 days Lab Units 12/23/236 12/22/23 1234 MAGNESIUM mg/dL 1.9 1.9 D Dimer: Results from last 7 days Lab Units 12/22/231957 D DIMER ng/mL DDU 7,716* Troponin I Results from last 7 days Lab Units 12/24/23 2321 12/23/23 1438 12/23/23 0945 TROPONIN I ng/mL 0.10* 0.33* 0.34* ProBNP Results from last 7 days Lab Units 12/22/23 1841 BNP pg/mL 828* Lipid Panel: Lab Results Component Value Date CHOL 127 (L) 09/13/2021 TRIG 198 (H) 11/25/2023 HDL 38 (L) 09/13/2021 Liver Panel: No results found for: ALB HgA1C: Lab Results Component Value Date HGBA1C 6.8 (H) 12/22/2023 ABG: Lab Results Component Value Date pH 7.488 (H) 11/18/2023 PCO2 29.4 (L) 11/18/2023 PO2 128 (H) 11/18/2023 Base,Excess 1.0 10/29/2023 Base,Deficit 1.0 11/18/2023 Portable HCO3 22.2 11/18/2023 SPO2 97 11/18/2023 CV TESTING HISTORY: ECHO: Echo limited W/ contrast Result Date: 11/07/2023 Left Ventricle: Systolic function is mildly to moderately decreased with an ejection fraction of 40-45%. Mitral Valve: There is mild regurgitation. Tricuspid Valve: There is mild regurgitation. Pericardium: There is no pericardial effusion. There is a left pleural effusion. Echo complete W/O contrast Result Date: 10/21/2023 Left Ventricle: Systolic function is normal with an ejection fraction of 55-60%. Poor image quality study with very poor endocardial definition. Normal left ventricular size with probably mild concentric left ventricular hypertrophy. Grossly normal left ventricular systolic function. No significantly abnormal stenotic or regurgitant flows are identified Echo complete W/ contrast Result Date: 09/04/2023 Left Ventricle: There is mild concentric increased wall thickness/hypertrophy. Systolic function is mildly to moderately decreased with an ejection fraction of 40-45%. Mitral Valve: There is mild to moderate regurgitation with a centrally directed and a posteriorly directed jet. There is no evidence of mitral valve stenosis. Tricuspid Valve: There is moderate regurgitation. The tricuspid valve regurgitation jet is eccentric. There is no evidence of tricuspid valve stenosis. STRESS: No results found. HOLTER: No results found. CARDIAC CATH: No results found. CAROTID: No results found. CXR: X-ray chest 1 view Result Date: 12/23/2023 XR CHEST 1 VW History: Short of breath. One view study. Comparison: 12/22/2023 and 11/30/2023 Impression: * No significant interval change.Cardiac silhouette remains grossly enlarged but unchanged. This may represent cardiomegaly and/or pericardial effusion. Chronic elevation the right hemidiaphragm is noted. Unchanged left PICC line. No acute pulmonary process is seen. No large effusion is noted Finalized by Yany Vargas MD on 12/23/2023 2:11 PM X-ray chest 1 view Result Date: 12/22/2023 Portable chest: HISTORY: Cough and sepsis. Single view the chest was obtained. Cardiac silhouette is enlarged but unchanged. Pulmonary vasculature is congested. No pneumothorax seen. Central line tip in the region of the SVC. IMPRESSION: Cardiomegaly and vascular congestion. Finalized by Ray Vo MD on 12/22/2023 1:52 PM X-ray chest 1 view Result Date: 11/30/2023 HISTORY: A 68-year-old female with the history of the PICC line placement. TECHNIQUE: Portable semierect AP view of chest: One view COMPARISON: Comparison is made with the chest radiograph of the 11/29/2023. FINDINGS: Examination is compromised due to poor inspiratory effort and patient's body habitus. There has been interval replacement of the PICC line through the left upper extremity approach with its tip at the junction of the superior vena cava and right atrium. There is minimal atelectasis in the right midlung field. There is a mild vascular congestion. No pneumothorax is identified. Costophrenic angles are clear. Heart is enlarged. There are aortic calcifications. Trachea is in midline. Hemidiaphragms are normal in position. IMPRESSION: * PICC line through the left upper extremity approach with its tip at the junction of the superior vena cava and right atrium. * No evidence of pneumothorax. * Mild vascular congestion and minimal right midlung field atelectasis. Finalized by Edvin Weinberg MD on 11/30/2023 4:13 PM X-ray chest 1 view Result Date: 11/29/2023 XR CHEST 1 VW HISTORY: Shortness of breath COMPARISON: Chest radiograph 11/21/2023 and 11/20/2023 TECHNIQUE: AP portable upright view. obtained. FINDINGS: Right-sided PICC line with tip overlying expected location of the SVC. Stable enlarged heart size. Mild bronchovascular crowding and interstitial edema. Bibasilar atelectasis. No focal consolidation. No pneumothorax or large pleural effusion. IMPRESSION: * Mild vascular congestion and interstitial edema. * Bibasilar atelectasis without focal consolidation. Approved by Resident Sonya Wright MD on 11/29/2023 5:33 PM I, Krystal Anderson MD have personally reviewed the image(s) and agree with and/or edited the report Finalized by Krystal Anderson MD on 11/29/2023 5:43 PM X-ray chest 1 view Result Date: 11/21/2023 Clinical history: Congestion, pleural effusions. Comparisons: 11/17/2023 through 11/20/2023. Findings: AP portable upright chest radiograph obtained 6:17 AM. Heart size remains enlarged. Pulmonary vasculature is mildly increased was venous redistribution to the upper lungs. There is hypoventilation with low lung volumes and crowding of bronchovascular markings in both lung bases. No focal pulmonary parenchymal consolidation. No large pleural effusion. Right-sided PICC again noted with tip at expected location of SVC. Left-sided PICC tip terminates at the expected location of the right atrium. IMPRESSION: 1. Persistent congestive changes yet interval improvement in atelectasis and consolidation in both lungs. Finalized by Mendoza Corbett MD on 11/21/2023 8:59 AM X-ray chest 1 view Result Date: 11/20/2023 Single view chest History:hypoxia Difficulty breathing, shortness of breath Comparison: 11/18/2023 Findings: Single portable view of the chest. Stable cardia mediastinal silhouette. Stable left PICC. There is mild vascular congestion with small pleural effusions and lower lung atelectasis. Impression: No significant interval change. Finalized by Krystal Anderson MD on 11/20/2023 8:35 AM X-ray chest 1 view Result Date: 11/18/2023 CHEST SINGLE AP VIEW 11/18/2023 12:03 PM CLINICAL INDICATION: picc placement COMPARISON: Chest one view 11/18/2023 IMPRESSION: 1. Right-sided PICC is grossly stable. Right PICC tip is obscured. Interval placement of left-sided PICC. Left PICC tip is obscured but extends at least to the cavoatrial junction. 2. Similar enlarged cardiac silhouette with pulmonary vascular congestion and interstitial edema. Similar small right pleural effusion with right basilar atelectasis or airspace disease. Finalized by Donnie Rojas MD on 11/18/2023 12:08 PM X-ray chest 1 view Result Date: 11/18/2023 Procedure: Chest x-ray performed Number of views:AP portable upright History:Shortness of breath Comparison:11/17/2023 Findings: The heart and lungs show no acute findings, and the mediastinum and bobby are grossly negative . Impression: No significant interval change Finalized by Harris Wilde DO on 11/18/2023 11:11 AM X-ray chest 1 view Result Date: 11/17/2023 Single view chest History:dyspnea Difficulty breathing, shortness of breath Comparison: 11/11/2023 Findings: Single portable view of the chest. Removal of the endotracheal tube and enteric catheter. Right PICC tip in SVC. Regular catheter is been removed. There is small pleural effusions with bilateral lower lung atelectasis or pneumonia and/or mild vascular congestion. Impression: Bilateral pleural effusions and bilateral lower lung atelectasis versus pneumonia and mild vascular congestion. Finalized by Krystal Anderson MD on 11/17/2023 5:23 PM X-ray chest 1 view Result Date: 11/11/2023 HISTORY: Intubated. Shortness of breath. COMPARISON: 11/10/2023. TECHNIQUE: Single portable AP view of the chest. FINDINGS: The ETT terminates 5.0 cm above the kathleen. The enteric tube courses below the diaphragm and out of the [id number]. Stable position of the right PICC in right central venous catheter. The trachea is midline. Stable cardiomegaly. Improving pulmonary vascular congestion and bibasilar opacities. Probable residual retrocardiac opacities. No pneumothorax. IMPRESSION: * Improving pulmonary vascular congestion and pleural effusions. * Persistent retrocardiac opacity, likely residual small pleural effusion or atelectasis. Approved by Resident Luly Kim MD on 11/11/2023 4:46 AM I, Krystal Anderson MD have personally reviewed the image(s) and agree with and/or edited the report Finalized by Krystal Anderson MD on 11/11/2023 4:54 AM X-ray chest 1 view Result Date: 11/10/2023 XR CHEST 1 VW CLINICAL HISTORY: Hypoxia COMPARISON: 11/09/2023 1 view obtained. FINDINGS: Endotracheal tube unchanged. Right IJ line unchanged. Right PICC line unchanged. Stable but severe cardiomegaly Pulmonary venous congestion increased since previous exam Increasing right pleural effusion and right lower lobe airspace density likely atelectasis. small left pleural effusion and left lower lobe atelectasis unchanged. Some interstitial edema in the perihilar regions and in the right lung increased IMPRESSION: * Findings most likely representing congestive heart failure with progression since previous examination Finalized by Neymar Yang MD on 11/10/2023 6:03 AM X-ray chest 1 view Result Date: 11/09/2023 CLINICAL INFORMATION: Respiratory failure on ventilator support COMPARISON: Chest radiograph dated 11/08/2023. VIEWS: 1. FINDINGS: Tip of endotracheal tube is 2.6 cm above the kathleen. Nasogastric tube has tip in the stomach. Right internal jugular central line has tip in proximal superior vena cava. Right PICC line has tip in superior vena cava. Low lung volumes. No interval change of moderate bilateral pleural effusions and bibasilar opacities. Moderate cardiomegaly. No pneumothorax. No free air below the diaphragm. IMPRESSION: No interval change of moderate bilateral pleural effusions and bibasilar opacities. Finalized by Lily Lorenzo MD on 11/09/2023 7:21 AM X-ray chest 1 view Result Date: 11/08/2023 History: Intubated. Reassessing Exam/Technique: Portable upright AP chest Comparison: Yesterday Findings: Endotracheal and enteric tubes and right jugular central line all unchanged with the tip of the endotracheal tube approximately 1.5 cm above the kathleen. With a suboptimal degree of inspiration no interval change is demonstrated with no new acute pulmonary or pleural abnormalities. Cardiomegaly appears grossly unchanged with magnification on this AP view. IMPRESSION: No interval change displayed from yesterday Finalized by Magdi Lyn MD on 11/08/2023 8:38 AM X-ray chest 1 view Result Date: 11/07/2023 CHEST 1 VIEW HISTORY: ET tube placement, NG placement, question free air COMPARISON: 11/06/2023 FINDINGS: ET tube with tip 3.5 cm above kathleen. Right PICC and right IJ central venous catheter is in place. Gastric drainage tube extends into the stomach. Mild bibasilar opacities, likely atelectasis. Probable small layering pleural effusions. No pneumothorax. No free intraperitoneal air identified on this single image. IMPRESSION: * Well-positioned lines and tubes. * Small layering pleural effusions with adjacent bibasilar opacities, likely atelectasis. * No free intraperitoneal air identified on this single image. Finalized by Vincent Pruett MD on 11/07/2023 12:15 PM X-ray chest 1 view Result Date: 11/06/2023 HISTORY: Sob. COMPARISON: 11/05/2023. TECHNIQUE: Single portable AP view of the chest. FINDINGS: Stable position of the right central venous catheter, the tip of which projects over the expected position of the proximal SVC. The trachea is midline. The cardiomediastinal silhouette is stable. Unchanged bibasilar opacities, likely representing atelectasis. No pneumothorax. IMPRESSION: * No significant interval change. Unchanged bibasilar opacities, likely representing atelectasis. Approved by Resident Luly Kim MD on 11/06/2023 5:26 AM I, Sonya Olson MD have personally reviewed the image(s) and agree with and/or edited the report Finalized by Sonya Olson MD on 11/06/2023 5:31 AM X-ray chest 1 view Result Date: 11/05/2023 HISTORY: Central line placement. COMPARISON: 10/31/2023. TECHNIQUE: Single portable AP view of the chest. FINDINGS: There has been interval placement of a right central venous catheter, the tip of which projects over the expected position of the proximal SVC. Stable position of the right PICC. The trachea is midline. The cardiomediastinal silhouette is stable. Improving bibasilar opacities. No pneumothorax. IMPRESSION: * The tip of the right central venous catheter projects over the expected position of the proximal SVC. No pneumothorax. * Improving bibasilar opacities. Approved by Resident Luly Kim MD on 11/05/2023 2:11 AM I, Sonya Olson MD have personally reviewed the image(s) and agree with and/or edited the report Finalized by Sonya Olson MD on 11/05/2023 2:17 AM X-ray chest 1 view Result Date: 10/31/2023 XR CHEST 1 VW HISTORY: Shortness of breath COMPARISON: 10/30/2023 FINDINGS: AP portable upright film obtained. Right upper extremity PICC with tip projecting near the cavoatrial junction. Unchanged, enlarged cardiac silhouette. Persistent vascular congestion and bilateral pleural effusions. No pneumothorax. Left basilar opacity, most likely atelectasis. IMPRESSION: Persistent vascular congestion and bilateral pleural effusions. Approved by Resident Santana Goss MD on 10/31/2023 7:40 AM I, Carol Alex MD have personally reviewed the image(s) and agree with and/or edited the report Finalized by Carol Alex MD on 10/31/2023 7:45 AM X-ray chest 1 view Result Date: 10/30/2023 History: PICC line placement EXAM: Chest AP portable upright 7:42 PM COMPARISON: 5:58 AM FINDINGS: Right upper extremity PICC line tip cavoatrial junction. NG tube in stomach. Stable cardiac silhouette. Mild vascular congestion. No pneumothorax. Basilar airspace opacities, small pleural effusions. IMPRESSION: Right PICC line tip cavoatrial junction. Otherwise, no significant change. Finalized by eRginald Da Silva MD on 10/30/2023 8:35 PM X-ray chest 1 view Result Date: 10/30/2023 Clinical history: CHF Views: 1 Comparison: 10/27/2023 Findings/Impression: 1. Heart size prominent. Vasculature is engorged increased from previous exam. 2. Pulmonary infiltrates likely due to edema/CHF but pneumonia difficult exclude appropriate clinical setting. No definite pneumothorax. Pleural effusions right side worse than left Finalized by Carol Alex MD on 10/30/2023 6:12 AM X-ray chest 1 view Result Date: 10/27/2023 CLINICAL INFORMATION: Hypoxia COMPARISON: Chest radiograph dated 10/24/2023. VIEWS: 1. FINDINGS: Tip of endotracheal tube is 5 cm above the kathleen. Nasogastric tube has tip in the stomach. Cardiac and mediastinal shadows are normal. No infiltrates. No effusions. No pneumothorax. No free air below the diaphragm. IMPRESSION: - Satisfactory positioning of endotracheal and nasogastric tubes. - No radiographic evidence for acute cardiopulmonary disease. Finalized by Lily Lorenzo MD on 10/27/2023 7:43 AM X-ray chest 1 view Result Date: 10/24/2023 Procedure: Chest x-ray performed Number of views:1 History:Shortness of breath Comparison:10/23/2023 Findings: The heart and lungs show no acute findings, and the mediastinum and bobby are grossly negative . Tubes and lines are stable. Impression: 1. No acute change. Finalized by Jose Tinoco MD on 10/24/2023 6:30 AM X-ray chest 1 view Result Date: 10/23/2023 Single view chest History:resp failure Difficulty breathing, shortness of breath Comparison: 10/20/2023 Findings: Single portable view of the chest. Stable endotracheal tube and enteric catheter. Stable cardiomediastinal silhouette. There is no focal consolidation, large effusion or pneumothorax. Impression: Stable tubes and lines. No significant interval change. Finalized by Krystal Anderson MD on 10/23/2023 6:15 AM X-ray chest 1 view Result Date: 10/20/2023 CLINICAL INFORMATION: Respiratory distress. Respiratory failure and ventilator support COMPARISON: Chest radiograph dated 10/19/2020. VIEWS: 1. FINDINGS: Tip of endotracheal tube is 4 cm above the kathleen. Nasogastric tube has tip in the stomach. Cardiac and mediastinal shadows are normal. No infiltrates. No effusions. No pneumothorax. No free air below the diaphragm. IMPRESSION: Satisfactory positioning of endotracheal and nasogastric tubes. No radiographic evidence for acute cardiopulmonary disease. Finalized by Lily Lorenzo MD on 10/20/2023 7:08 AM X-ray chest 1 view Result Date: 10/19/2023 History: Intubation Technique: A portable single frontal view the chest was obtained. Comparison: 10/19/2023 at 2:54 AM Findings: There is been improved aeration of the left lung since the previous examination. Endotracheal tube remains in place. Has retracted slightly since previous examination but continues to have its tip in the right mainstem bronchus. Retraction of approximately 4 cm is recommended. Impression: * The tip of the endotracheal tube remains in the right mainstem bronchus. Retraction by about 4 cm is recommended. * Improved aeration of the left lung since the prior study. Finalized by Sonya Olson MD on 10/19/2023 3:24 AM X-ray chest 1 view Result Date: 10/19/2023 XR CHEST 1 VW HISTORY: Shortness of breath, respiratory failure COMPARISON: Chest x-ray 10/18/2023 FINDINGS: There is complete interval opacification of the left lung with air bronchograms present. Interval placement of endotracheal tube which terminates in the right mainstem bronchus. Recommend retracting 8 cm. Right chest unremarkable appearing. IMPRESSION: * Complete opacification of the left lung with endotracheal tube tube terminating in the right mainstem bronchus. Recommend retracting 8 cm. Approved by Resident Tanner Licea DO on 10/19/2023 3:01 AM ISonya MD have personally reviewed the image(s) and agree with and/or edited the report Finalized by Sonya Olson MD on 10/19/2023 3:11 AM X-ray chest 1 view Result Date: 10/17/2023 Procedure: Chest x-ray performed Number of views:AP portable History:Transient alteration of awareness Comparison:10/05/2023 Findings: The heart and lungs show no acute findings, and the mediastinum and bobby are grossly negative . Impression: No acute change. Finalized by Harris Wilde DO on 10/17/2023 5:08 PM X-ray chest 1 view Result Date: 10/05/2023 XR CHEST 1 VW HISTORY: Congestive heart failure, shortness of breath COMPARISON: 09/30/2023 FINDINGS: AP upright film obtained. Interval removal of right-sided central venous catheter. The cardiomediastinal silhouette is prominent and unchanged. No significant pulmonary vascular congestion.. No pleural effusion or pneumothorax. No consolidation. Degenerative changes in the AC joints bilaterally. Lower thoracic spondylosis with bony spurring. IMPRESSION: * Improved pulmonary vascular congestion with no radiographic evidence of acute cardiopulmonary process. * Interval removal of right IJ central line. Approved by Resident: Judson Pompa DO on 10/05/2023 8:38 AM Vida Lang MD have personally reviewed the image(s) and agree with and/or edited the report Finalized by Vida Jiménez MD on 10/05/2023 8:44 AM X-ray chest 1 view Result Date: 09/30/2023 XR CHEST 1 VW HISTORY: CHF and pulmonary congestion. Follow-up exam COMPARISON: Prior study from the day before. FINDINGS: AP portable upright view of the chest The trachea is midline. Cardiomediastinal contour is mildly enlarged with bilateral hilar congestion. Left retrocardiac consolidation. No pleural effusion or pneumothorax. No change in right IJ central line with the tip in the SVC. IMPRESSION: * Low lung volumes and decompensated CHF similar to prior study. Finalized by Vida Jiménez MD on 09/30/2023 8:05 AM X-ray chest 1 view Result Date: 09/29/2023 Clinical History: Congestion. Portable Upright chest: 09/29/2023 Comparison: 09/28/2023 Findings: A single portable view of the chest was obtained. Right IJ catheter remains in the mid SVC region. There is cardiac prominence with vascular distention centrally and indistinct vascular margins. Confluent basilar opacities persist with no definite change. There is no pneumothorax. Pleural effusions are likely bilaterally IMPRESSION: Persistent vascular congestion with grossly stable basilar infiltrates and probable pleural effusions. Finalized by Jamaal Cormier MD on 09/29/2023 8:09 AM X-ray chest 1 view Result Date: 09/28/2023 Clinical History: Congestion. Edema. Portable Upright chest: 09/28/2023 Comparison: 09/27/2023 Findings: A single portable view of the chest was obtained. Right IJ catheter is in mid trachea. Cardiac silhouette is prominent with stable mediastinal contours. This vascular distention and indistinct appearance centrally with persistent perihilar and basilar infiltrates. No pneumothorax or large pleural effusion is present. IMPRESSION: Vascular congestion with persistent basilar infiltrates and pleural effusions. Finalized by Jamaal Cormier MD on 09/28/2023 7:29 AM X-ray chest 1 view Result Date: 09/27/2023 Single view chest History:sob Difficulty breathing, shortness of breath Comparison: 09/22/2023 Findings: Single portable view of the chest. Stable cardia mediastinal silhouette. Right jugular catheter stable. Mild vascular congestion and edema and small pleural effusions, stable. Impression: No significant interval change. Finalized by Krystal Anderson MD on 09/27/2023 10:45 AM PHYSICAL EXAM Admission Weight: Weight: 90.3 kg (199 lb 1.2 oz) I/O last 3 completed shifts: In: 2424.2 [I.V.:1661.3; IV Piggyback:763] Out: 1501 [Urine:1500; Stool:1] Weight change: 2.4 kg (5 lb 4.7 oz) Wt Readings from Last 3 Encounters: 12/25/23 98.5 kg (217 lb 2.5 oz) 12/19/23 90.3 kg (199 lb 1.2 oz) 12/03/23 90.3 kg (199 lb 1.2 oz) Vitals: Vitals: 12/25/23 0306 12/25/23 0435 12/25/23 0748 12/25/23 1104 BP: 120/81 136/88 133/56 Pulse: 101 112 81 Resp: 20 Temp: 36.9 C (98.4 F) 36.6 C (97.9 F) 36.6 C (97.8 F) TempSrc: Oral Oral Oral SpO2: 96% 99% 100% Weight: 98.5 kg (217 lb 2.5 oz) Height: Admit Weight Weight: 90.3 kg (199 lb 1.2 oz) Last 3 Weights Last 3 Weight Readings 12/23/23 0425 12/24/23 0416 12/25/23 0435 Weight: 92.1 kg (203 lb 0.7 oz) 96.1 kg (211 lb 13.8 oz) 98.5 kg (217 lb 2.5 oz) Body mass index is 37.27 kg/m . INTAKE/OUTPUT I/O last 3 completed shifts: In: 2424.2 [I.V.:1661.3; IV Piggyback:763] Out: 1501 [Urine:1500; Stool:1] Intake/Output Summary (Last 24 hours) at 12/25/2023 1146 Last data filed at 12/25/2023 0657 Gross per 24 hour Intake 2259.16 ml Output 901 ml Net 1358.16 ml General appearance: Alert oriented Eyes: Conjunctivae unremarkable, EOM's intact, sclera non icteric Neck: No JVD, no carotid bruit, neck supple, trachea midline Lungs: Clear to ausculation bilaterally, no use of accessory muscles Heart:: Irregularly irregular with normal S1 and S2, no murmurs and no gallops. Abdomen: Soft, non-tender, bowel sounds normal. Extremities: Mild bilateral pitting edema Neurologic: Moving all extremities. 68 year female with past medical history of diabetes, essential hypertension, mixed hyperlipidemia, atrial fibrillation/flutter s/p ablation 2020, heart failure with reduced ejection fraction, atherosclerotic heart disease (2020 angiogram showed moderate disease in LAD, RCA and LCX, medical management), nonrheumatic mitral and tricuspid valve regurgitation, osteomyelitis. Patient was discharged to facility, during MRI found to have hypotension and atrial fibrillation with RVR. Chronic hypotension. -persistent atrial fibrillation with RVR: [id number] score at least 5. Not on anticoagulation therapy due to recent admission for ?rectal versus sacral ulcer bleeding. No recurrence of bleeding. -elevated cardiac troponin: Patient having intermittent episodes of chest pain in the setting of RVR, diffuse mild ST segment depression which does not appear to be new. Patient has moderate triple-vessel disease on angiogram in 2020. Troponin peaked at 0.58, down trended. -severely elevated D-dimer: No reported large pulmonary embolism. No DVT. 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 -atherosclerotic heart disease of [place] arteries without angina: Moderate disease 01/2021. -chronic hypotension and on midodrine. Prior history of hypertension. -history of typical atrial flutter: S/p ablation 02/2022. -questionable sepsis: -mixed hyperlipidemia: -type 2 diabetes: -CKD: Previously patient required dialysis. -history of colorectal cancer s/p small bowel resection with colostomy: -history of sacral ulcers: Recommendations: Heart rate slightly better controlled but still episodes of RVR, I will increase dose of metoprolol to 50 mg b.i.d.. Patient previously required intermittent doses of digoxin. Had some pauses overnight. Sepsis management as per primary team. Continue heparin gtt. Troponin peaked at 0.58, down trended. Chest pain resolved with better heart rate control. Will need further ischemic evaluation, preferably Angiography. (Liborio) YOSELIN. I called him today to update patient's condition, he starts cut seeing and would like this hospital to treat her cancer only. He tells me he is well aware of her heart conditions which is atrial fibrillation and does not want to no further. I will proceed with coronary CTA for best interest of the patient, patient herself is agreeable. Before any intervention we need to make it clear to the family. Very challenging situation, anemia and CKD, not sure if patient will be able to tolerate triple therapy if she requires PCI. For now asymptomatic, will continue to monitor. Thanks for the consult, will follow the patient. Discussed with primary team and RN on bedside. MAEGAN SINHA MD This note was completed using a voice workforce management manager system. Every effort was made to ensure accuracy. However, inadvertent computerized workforce management manager errors may be present. Images from the original note were not included. ACADEMIC PULMONARY PROGRESS NOTE Patient - Harris Castrejon Age - 68 y.o. - 1955 Date of Admission - 12/22/2023 12:03 PM Consulting Service/Physician: Consulting: Consulting Providers Provider Service Specialty Academic Adult Pulmonary Consult Service Tt Only -- Pulmonary Medicine MD Wendy Patel Internal Medicine Hematology Ip Wound Care Services (Inpatient Only) -- Wound Care Lizz Trejo MD -- Infectious Diseases Eduardo Wolff MD Cardiology Cardiology MD Wendy Salazar Radiation Oncology Radiation Oncology Surgery B (Tth Only) -- General Surgery Primary Care Physician: Carol Akins PA-C SUBJECTIVE: Chief Complaint: Chief Complaint Patient presents with Atrial Fibrillation Subjective: Patient seen examined at bedside this morning in no apparent distress. She is on 1 L of nasal cannula oxygen saturating 100%. She states her breathing is about the same does not improve, she has had mild chest pain intermittently since yesterday. Continues to have shortness of breath. No acute events reported overnight. VITALS BP 136/88 Pulse 112 Temp 36.6 C (97.9 F) (Oral) Resp 20 Ht 162.6 cm (5' 4 ) Wt 98.5 kg (217 lb 2.5 oz) SpO2 99% BMI 37.27 kg/m Intake/Output Summary (Last 24 hours) at 12/25/2023 0825 Last data filed at 12/25/2023 0657 Gross per 24 hour Intake 2259.16 ml Output 901 ml Net 1358.16 ml Admission weight: 90.3 kg (199 lb 1.2 oz) Physical Exam Vitals reviewed. Constitutional: General: She is not in acute distress. Appearance: She is ill-appearing. She is not toxic-appearing. HENT: Head: Normocephalic and atraumatic. Mouth/Throat: Mouth: Mucous membranes are moist. Cardiovascular: Rate and Rhythm: Tachycardia present. Heart sounds: No murmur heard. Pulmonary: Effort: Pulmonary effort is normal. No respiratory distress. Breath sounds: No stridor. Abdominal: General: There is no distension. Tenderness: There is no abdominal tenderness. Skin: Findings: No rash. Neurological: Mental Status: She is alert. Meds: Scheduled Meds: aspirin, 81 mg, oral, Daily atorvastatin, 20 mg, oral, Nightly cefTRIAXone (ROCEPHIN) IV, 2,000 mg, intravenous, Q24H metoprolol tartrate, 25 mg, oral, BID metroNIDAZOLE, 500 mg, intravenous, Q8H pantoprazole, 40 mg, oral, QAM AC sodium hypochlorite, 1 Application, topical, BID vancomycin, 1,250 mg, intravenous, Q24H Continuous Infusions: dextrose 5 % in water, 100 mL/hr dextrose 5 % in water 1,000 mL with potassium chloride 40 mEq, sodium bicarbonate 8.4 % (1 mEq/mL) 50 mEq infusion, 75 mL/hr, Last Rate: 75 mL/hr (12/25/23 0657) heparin, 300-3,500 Units/hr, Last Rate: Stopped (12/24/232023) sodium chloride 0.9 %, 20 mL/hr, Last Rate: Stopped (12/25/23 0539) PRN Meds:. acetaminophen calcium gluconate calcium gluconate calcium gluconate dextrose dextrose 5 % in water dextrose 50 % in water (D50W) glucagon (human recombinant) heparin (porcine) iohexoL levalbuterol magnesium sulfate magnesium sulfate metoprolol (LOPRESSOR) IV ondansetron potassium chloride OR potassium chloride sodium chloride sodium chloride sodium chloride 0.9 % sodium chloride Lab Results: Results from last 7 days Lab Units 12/25/23 0549 WBC X10E9/L 13.0* HEMOGLOBIN g/dL 7.3* HEMATOCRIT % 22.6* PLATELETS X10E9/L 189 Results from last 7 days Lab Units 12/25/23 0549 POTASSIUM mmol/L 4.4 CHLORIDE mmol/L 115* CO2 mmol/L 20* BUN mg/dL 24 CREATININE mg/dL 1.14* CALCIUM mg/dL 6.8* Results from last 7 days Lab Units 12/23/23 0326 MAGNESIUM mg/dL 1.9 Radiology: No results found. A: Sepsis due to multiple sources (pneumonia vs cholecystitis vs sacral ulcer vs urine) 2. Acute hypoxic respiratory failure 3. Left lung apex opacity concerning for pneumonia/atelectasis 4. Mediastinal lymphadenopathy concerning for metastasis vs reactive lymphadenopathy 5. Acute encephalopathy likely metabolic/toxic 5. Distended gallbladder with periportal edema concerning for cholecystitis 6. Sacral decubitus ulcer (osteomyelitis in Sep 2023 s/p debridement) 7. CKD4 8. HFrEF (40-45%), not in exacerbation 9. Rectal cancer 10. Atrial fibrillation with rapid ventricular rate P: - Provide supplemental O2 to keep SpO2 >92% - No plan for EBUS. Probably will need repeat CT imaging to ensure resolution of mediastinal lymphadenopathy within a few months - Continue broad spectrum antibiotics with Ceftriaxone, vanc, metronidazole - Follow up blood cultures and wound culture sensitivities - Rest of care per primary and other consulting services - Pulmonology will continue to follow This progress note was completed using a voice workforce management manager system. Every effort was made to ensure accuracy. However, inadvertent computerized workforce management manager errors may be present. Associated attestation - Justin Condon MD - 12/26/2023 11:13 AM EDT I personally saw this patient on the day of the encounter, performed the greenberg portion(s) of the service and participated in the management and confirm the resident/fellow s documentation. Please note there may be additional personal documentation from me No acute events overnight Remained on Low flow nasal canula Mediastinal Lymph nodes appear homogenous and borderline enlarged Will plan follow up CT chest vs PET scan as outpatient after completing antibiotics Justin Condon MD Pulmonary and critical care [facility] IP Day: 3 Subjective: Patient being to have rectal bleeding last night. Heparin drip was shut off. Slight increase in fatigue per nursing staff. Patient still with SOB. Still complaints of slight abdominal pain. Ostomy still productive. Denies fevers, chills, chest pain, nausea, or vomiting. Objective: Vitals: 12/25/23 0306 BP: 120/81 Pulse: 101 Resp: 20 Temp: 36.9 C (98.4 F) SpO2: 96% Temp: [36.2 C (97.2 F)-36.9 C (98.4 F)] 36.9 C (98.4 F) Pulse: [94-116] 101 Resp: [17-20] 20 BP: (109-146)/(59-91) 120/81 SpO2: [96 %-99 %] 96 % O2 Device: Nasal cannula O2 Flow Rate (L/min): [1 L/min-2 L/min] 1 L/min Allergies Allergen Reactions Oats Intake/Output last 3 shifts: I/O last 3 completed shifts: In: 2458.1 [I.V.:1718.3; IV Piggyback:739.9] Out: 1060 [Urine:1000; Stool:60] Intake/Output this shift: I/O this shift: In: 0 Out: 901 [Urine:900; Stool:1] Dietary Orders (From admission, onward) Start Ordered 12/22/23 1600 Adult diet NPO; Except medications Diet effective now Question Answer Comment Diet Type: NPO NPO Except: Except medications 12/22/23 1603 Physical Exam General Appearance: Awake, Alert & Oriented x3, No Acute Distress. Neck: Trachea Midline, No elevated Jugular Venous Pressure. Pulmonary: Unlabored breathing. No expiratory wheeze. Cardiac: Regular rhythm and rate. Abdomen: Soft, right upper quadrant and left lower quadrant slightly tender, non-distended, no rebound, no guarding. Midline wound healthy. Extremity: Full Range of Motion, No edema Bilateral Upper Extremities Skin: Dry. Non-icteric. No Rash. Eyes: Pupils Equal and Round, Non-icteric Laboratory Data: Lab Results Component Value Date WBC 13.0 (H) 12/25/2023 HGB 7.3 (L) 12/25/2023 HCT 22.6 (L) 12/25/2023 MCV 90 12/25/2023 PLT 189 12/25/2023 Lab Results Component Value Date GLU 95 12/24/2023 CALCIUM 6.7 (LL) 12/24/2023 K 4.2 12/24/2023 CO2 20 (L) 12/24/2023 CL 113 (H) 12/24/2023 BUN 26 12/24/2023 CREATININE 1.11 (H) 12/24/2023 No results found for: AMYLASE Lab Results Component Value Date LIPASE 135 (H) 12/22/2023 Lab Results Component Value Date ALT 18 12/24/2023 AST 23 12/24/2023 ALKPHOS 198 (H) 12/24/2023 Lab Results Component Value Date INR 1.2 (H) 12/22/2023 INR 1.2 (H) 11/08/2023 INR 1.3 (H) 11/07/2023 PROTIME 13.8 (H) 12/22/2023 PROTIME 14.0 (H) 11/08/2023 PROTIME 14.7 (H) 11/07/2023 aspirin, 81 mg, oral, Daily atorvastatin, 20 mg, oral, Nightly cefTRIAXone (ROCEPHIN) IV, 2,000 mg, intravenous, Q24H metoprolol tartrate, 25 mg, oral, BID metroNIDAZOLE, 500 mg, intravenous, Q8H pantoprazole, 40 mg, oral, QAM AC sodium hypochlorite, 1 Application, topical, BID vancomycin, 1,250 mg, intravenous, Q24H acetaminophen calcium gluconate calcium gluconate calcium gluconate dextrose dextrose 5 % in water dextrose 50 % in water (D50W) glucagon (human recombinant) heparin (porcine) iohexoL levalbuterol magnesium sulfate magnesium sulfate metoprolol (LOPRESSOR) IV ondansetron potassium chloride OR potassium chloride sodium chloride sodium chloride sodium chloride 0.9 % sodium chloride Assessment: Harris Castrejon is a 68 y.o. female whom is Hospital Day: 4 with significant past medical history who was recently in the ICU in October of 2023 secondary to GI bleed requiring exploratory laparotomy with small-bowel resection and colostomy creation. 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 Here after becoming tachycardic and hypotensive during MRI. Right upper quadrant ultrasound showing gallbladder distention with internal debris/sludge. No gallbladder wall thickening to suggest acute cholecystitis. Unlikely source for patient's deterioration. Hemoglobin Slightly down 8.1 > 7.9 > 7.1 > 7.3 Plan: Patient is poor surgical candidate at this time Radiation oncology and oncology recommending pelvic MRI for further plans Hold heparin drip for now due to rectal bleeding Monitor hemoglobin q8h Okay for regular diet from surgery standpoint Serial abdominal exams Follow up cultures Wound care per wound care team Pain and nausea control as needed Rest of care per primary Ryan Amador MD General Surgery Resident, PGY-1 Colorectal Surgery 6a-6p pager # [phone] 6p-6a pager #[phone] Associated attestation - Mitra Crowell MD - 12/25/2023 3:16 PM EDT Attending Attestation: I saw the patient. I participated and was physically present during the critical/greenberg portions of the service. I was directly involved in the management and treatment plan of the patient. I reviewed the resident's note. Additional Notes/Findings: Patient clinically stable. There is concern for some rectal bleeding IP Day: 2 Subjective: No acute events overnight. Patient still with SOB. Complains of abdominal pain still. Ostomy productive. Denies fevers, chills, chest pain, nausea, or vomiting. Objective: Vitals: 12/24/23 1050 BP: 135/59 Pulse: 116 Resp: 20 Temp: 36.2 C (97.2 F) SpO2: 98% Temp: [36.2 C (97.2 F)-36.5 C (97.7 F)] 36.2 C (97.2 F) Pulse: [78-116] 116 Resp: [18-22] 20 BP: (108-137)/(54-86) 135/59 SpO2: [96 %-99 %] 98 % O2 Device: Nasal cannula O2 Flow Rate (L/min): [1 L/min-2.5 L/min] 1 L/min Allergies Allergen Reactions Oats Intake/Output last 3 shifts: I/O last 3 completed shifts: In: 2458.1 [I.V.:1718.3; IV Piggyback:739.9] Out: 1610 [Urine:1500; Stool:110] Intake/Output this shift: No intake/output data recorded. Dietary Orders (From admission, onward) Start Ordered 12/22/23 1600 Adult diet NPO; Except medications Diet effective now Question Answer Comment Diet Type: NPO NPO Except: Except medications 12/22/23 1603 Physical Exam General Appearance: Awake, Alert & Oriented x3, No Acute Distress. Neck: Trachea Midline, No elevated Jugular Venous Pressure. Pulmonary: Unlabored breathing. No expiratory wheeze. Cardiac: Regular rhythm and rate. Abdomen: Soft, right upper quadrant and left lower quadrant slightly tender, non-distended, no rebound, no guarding. Midline wound healthy. Extremity: Full Range of Motion, No edema Bilateral Upper Extremities Skin: Dry. Non-icteric. No Rash. Eyes: Pupils Equal and Round, Non-icteric Laboratory Data: Lab Results Component Value Date WBC 17.9 (H) 12/24/2023 HGB 7.9 (L) 12/24/2023 HCT 24.4 (L) 12/24/2023 MCV 90 12/24/2023 PLT 211 12/24/2023 Lab Results Component Value Date GLU 99 12/24/2023 CALCIUM 6.8 (LL) 12/24/2023 K 4.0 12/24/2023 CO2 19 (L) 12/24/2023 CL 115 (H) 12/24/2023 BUN 27 12/24/2023 CREATININE 1.17 (H) 12/24/2023 No results found for: AMYLASE Lab Results Component Value Date LIPASE 135 (H) 12/22/2023 Lab Results Component Value Date ALT 18 12/24/2023 AST 23 12/24/2023 ALKPHOS 198 (H) 12/24/2023 Lab Results Component Value Date INR 1.2 (H) 12/22/2023 INR 1.2 (H) 11/08/2023 INR 1.3 (H) 11/07/2023 PROTIME 13.8 (H) 12/22/2023 PROTIME 14.0 (H) 11/08/2023 PROTIME 14.7 (H) 11/07/2023 aspirin, 81 mg, oral, Daily atorvastatin, 20 mg, oral, Nightly cefepime (MAXIPIME) IV, 2,000 mg, intravenous, Q12H metoprolol tartrate, 25 mg, oral, BID metroNIDAZOLE, 500 mg, intravenous, Q8H pantoprazole, 40 mg, oral, QAM AC sodium hypochlorite, 1 Application, topical, BID vancomycin, 1,250 mg, intravenous, Q24H acetaminophen calcium gluconate calcium gluconate calcium gluconate dextrose dextrose 5 % in water dextrose 50 % in water (D50W) glucagon (human recombinant) heparin (porcine) iohexoL levalbuterol magnesium sulfate magnesium sulfate metoprolol (LOPRESSOR) IV ondansetron potassium chloride OR potassium chloride sodium chloride sodium chloride sodium chloride 0.9 % sodium chloride Assessment: Harris Castrejon is a 68 y.o. female whom is Hospital Day: 3 with significant past medical history who was recently in the ICU in October of 2023 secondary to GI bleed requiring exploratory laparotomy with small-bowel resection and colostomy creation. 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 Here after becoming tachycardic and hypotensive during MRI. Right upper quadrant ultrasound showing gallbladder distention with internal debris/sludge. No gallbladder wall thickening to suggest acute cholecystitis. Unlikely source for patient's deterioration. Plan: Patient is poor surgical candidate at this time Consult radiation oncology and oncology Okay for regular diet from surgery standpoint Serial abdominal exams Follow up cultures Wound care per wound care team Pain and nausea control as needed Rest of care per primary Ryan Amador MD General Surgery Resident, PGY-1 Colorectal Surgery 6a-6p pager # [phone] 6p-6a pager #[phone] Associated attestation - Mitra Crowell MD - 12/25/2023 3:19 PM EDT Attending Attestation: I saw the patient. I participated and was physically present during the critical/greenberg portions of the service. I was directly involved in the management and treatment plan of the patient. I reviewed the resident's note. Additional Notes/Findings: We will attempt to obtain MRI to complete staging. At this time she has not a candidate for surgery [facility] Department of Pharmacy Pharmacist to Physician Communication The dose of vancomycin for bacteremia has restarted per consult at prior dose of 1250 mg every 24 hours per the [facility] approved renal dosing guidelines, based on an estimated creatinine clearance is 40.8 mL/min (A) (by C-G formula based on SCr of 1.17 mg/dL (H)). Plan to obtain trough prior to the fourth dose of this regimen. Thank you, iVckie Milan [facility], PharmD Ext [phone] Images from the original note were not included. ACADEMIC PULMONARY PROGRESS NOTE Patient - Harris Castrejon Age - 68 [facility] 1955 [id number] Date of Admission - 12/22/2023 12:03 PM Consulting Service/Physician: Consulting: Consulting Providers Provider Service Specialty Academic Adult Pulmonary Consult Service Tt Only -- Pulmonary Medicine MD Wendy Patel Internal Medicine Hematology Ip Wound Care Services (Inpatient Only) -- Wound Care Lizz Trejo MD -- Infectious Diseases Eduardo Wolff MD Cardiology Cardiology MD Wendy Salazar Radiation Oncology Radiation Oncology Surgery B (Tt Only) -- General Surgery Primary Care Physician: Carol Akins PA-C SUBJECTIVE: Chief Complaint: Chief Complaint Patient presents with Atrial Fibrillation Subjective: Patient seen and examined at bedside. She appeared to be clinically improved compared to yesterday. She appeared a bit more oriented and knew she was in [place]. Respiratory requirement has not changed much and she was on 2.5L NC when seen. Blood cultures remain negative. She is growing staph aureus and group A strep newly from abdominal wound culture. VITALS BP 135/59 Pulse 116 Temp 36.2 C (97.2 F) (Oral) Resp 20 Ht 162.6 cm (5' 4 ) Wt 96.1 kg (211 lb 13.8 oz) SpO2 98% BMI 36.37 kg/m Intake/Output Summary (Last 24 hours) at 12/24/2023 1107 Last data filed at 12/24/2023 0500 Gross per 24 hour Intake 1244.95 ml Output 1060 ml Net 184.95 ml Admission weight: 90.3 kg (199 lb 1.2 oz) Physical Exam Vitals reviewed. Constitutional: General: She is not in acute distress. Appearance: She is not ill-appearing or toxic-appearing. HENT: Head: Normocephalic and atraumatic. Mouth/Throat: Mouth: Mucous membranes are moist. Eyes: General: No scleral icterus. Extraocular Movements: Extraocular movements intact. Pupils: Pupils are equal, round, and reactive to light. Cardiovascular: Rate and Rhythm: Normal rate. Pulmonary: Effort: Pulmonary effort is normal. No respiratory distress. Breath sounds: No stridor. Abdominal: General: There is no distension. Skin: Findings: No rash. Neurological: Mental Status: She is alert. Cranial Nerves: No cranial nerve deficit. Meds: Scheduled Meds: aspirin, 81 mg, oral, Daily atorvastatin, 20 mg, oral, Nightly cefepime (MAXIPIME) IV, 2,000 mg, intravenous, Q12H metoprolol tartrate, 25 mg, oral, BID metroNIDAZOLE, 500 mg, intravenous, Q8H pantoprazole, 40 mg, oral, QAM AC sodium hypochlorite, 1 Application, topical, BID Continuous Infusions: dextrose 5 % in water, 100 mL/hr dextrose 5 % in water 1,000 mL with potassium chloride 40 mEq, sodium bicarbonate 8.4 % (1 mEq/mL) 50 mEq infusion, 75 mL/hr heparin, 300-3,500 Units/hr, Last Rate: 1,000 Units/hr (12/23/232125) sodium chloride 0.9 %, 20 mL/hr PRN Meds:. acetaminophen calcium gluconate calcium gluconate calcium gluconate dextrose dextrose 5 % in water dextrose 50 % in water (D50W) glucagon (human recombinant) heparin (porcine) iohexoL levalbuterol magnesium sulfate magnesium sulfate metoprolol (LOPRESSOR) IV ondansetron potassium chloride OR potassium chloride sodium chloride sodium chloride sodium chloride 0.9 % sodium chloride Lab Results: Results from last 7 days Lab Units 12/24/23 0520 WBC X10E9/L 17.9* HEMOGLOBIN g/dL 7.9* HEMATOCRIT % 24.4* PLATELETS X10E9/L 211 Results from last 7 days Lab Units 12/24/23 0520 POTASSIUM mmol/L 4.0 CHLORIDE mmol/L 115* CO2 mmol/L 19* BUN mg/dL 27 CREATININE mg/dL 1.17* CALCIUM mg/dL 6.8* Results from last 7 days Lab Units 12/23/23 0326 MAGNESIUM mg/dL 1.9 Radiology: X-ray chest 1 view Result Date: 12/23/2023 XR CHEST 1 VW History: Short of breath. One view study. Comparison: 12/22/2023 and 11/30/2023 Impression: * No significant interval change.Cardiac silhouette remains grossly enlarged but unchanged. This may represent cardiomegaly and/or pericardial effusion. Chronic elevation the right hemidiaphragm is noted. Unchanged left PICC line. No acute pulmonary process is seen. No large effusion is noted Finalized by Yany Vargas MD on 12/23/2023 2:11 PM Vas venous duplex lwr bilateral Result Date: 12/23/2023 Right: Lower extremity deep veins are compressible with spontaneous phasic spectral Doppler waveforms; superficial veins are compressible without intraluminal content. Left: Lower extremity deep veins are compressible with spontaneous phasic spectral Doppler waveforms; superficial veins are compressible without intraluminal content. General: Incidental finding of left nodular mass without color flow in the groin. Conclusions: BILATERAL: NO EVIDENCE of deep or superficial vein thrombosis of the lower extremities. LEFT:Incidental finding may warrant further investigation Recommendations: Any questions prior to finalization, please call the reading physician during normal business hours at the phone number beside their name. A: Sepsis due to multiple sources (pneumonia vs cholecystitis vs sacral ulcer vs urine) 2. Acute hypoxic respiratory failure 3. Left lung apex opacity concerning for pneumonia/atelectasis 4. Mediastinal lymphadenopathy concerning for metastasis vs reactive lymphadenopathy 5. Acute encephalopathy likely metabolic/toxic 5. Distended gallbladder with periportal edema concerning for cholecystitis 6. Sacral decubitus ulcer (osteomyelitis in Sep 2023 s/p debridement) 7. CKD4 8. HFrEF (40-45%), not in exacerbation 9. Rectal cancer 10. Atrial fibrillation with rapid ventricular rate P: - Provide supplemental O2 to keep SpO2 >92% - No plan for EBUS. Probably will need repeat CT imaging to ensure resolution of mediastinal lymphadenopathy within a few months - Would hold off on diuresis due to sepsis and patient requiring only 2.5L NC - Continue broad spectrum antibiotics with cefepime, vanc, metronidazole - Follow up blood cultures - If respiratory status worsens, obtain chest xray to ensure no worsening pulmonary congestion and would consider obtaining sputum culture (if coughing), urine legionella, urine streptococcal antigen - Rest per primary - Pulmonology will continue to follow Harman Shah MD 12/24/23 11:07 AM - PGY3 Internal Medicine Resident. - [facility]. This progress note was completed using a voice workforce management manager system. Every effort was made to ensure accuracy. However, inadvertent computerized workforce management manager errors may be present. Associated attestation - Justin Condon MD - 12/24/2023 3:21 PM EDT I personally saw this patient on the day of the encounter, performed the greenberg portion(s) of the service and participated in the management and confirm the resident/fellow s documentation. Please note there may be additional personal documentation from me Decreased respiratory distress, on low flow nasal canula Continue conservative management Mediastinal Lymph nodes appear homogenous and borderline enlarged Will plan follow up CT chest vs PET scan as outpatient after treating with antibiotics Justin Condon MD Pulmonary and critical care [facility] Images from the original note were not included. IMS-3 PROGRESS NOTE Date of Service: 12/24/2023 Patient Name: Harris Castrejon : 1955 DOA: 12/22/2023 Hospital Day: 3 HPI/Hospital course: Harris Castrejon is a 68 y.o. female medical history of diabetes, essential hypertension, mixed hyperlipidemia, HFREF 40-45% nov 23, atrial fibrillation/flutter s/p ablation 2020,, atherosclerotic heart disease (2020 angiogram showed moderate disease in LAD, RCA and LCX, medical management), nonrheumatic mitral and tricuspid valve regurgitation, CKD 4, stage IV pressure ulcer sacrum complicated by osteomyelitis s/p debridement 10/23, severe esophagitis, , rectal cancer currently undergoing staging, recent admission to ICU in October of 2023 in which had ex lap with small-bowel resection and colostomy wound VAC due to GI bleed and hemodialysis. Was recently on TPN through picc line just transitioned to PO feeding couple days ago. Per chart review, patient presented to emergency department after being tachycardic 160s, feeling of unwell while getting MRI today to evaluate her rectal cancer. Upon arrival to ED, patient afebrile tachycardic heart rate in the 150s, respiratory rate between 20-30, blood pressure soft 85/73 satting well on 4 L nasal cannula baseline 0. Initial lab work significant for white blood cell count of 15.9, hemoglobin 8.1 baseline 8-9, glucose 42, creatinine 1.48 baseline 1.2, alk phos 313, Blood glucose 43 , lactate 1.0. Chest x-ray revealed cardiomegaly and vascular congestion. CT abdomen and pelvis revealed distended gallbladder with periportal edema and evidence of large sacral soft tissue ulcer unable to exclude osteomyelitis nonspecific thickening of rectal canal. CT chest revealed new focal opacity in left lung apex along with increase in mediastinal nodes which could represent reactive versus metastatic process. Patient was started on vanc, cefepime for empiric antibiotic therapy. Was treated with 30 cc/kg fluid resuscitation due to presumed sepsis. Was given 50% dextrose due to hypoglycemia. Digoxin ordered due to concern AFib RVR. Cardiology consulted. General surgery consulted regarding potential cholecystectomy upon stabilization INTERVAL EVENTS SUBJECTIVE Patient was seen and examined today at bedside. She is awake alert oriented to person. She has not oriented to place or time. She is oriented to president. Patient complains of pain in abdomen along right side. Denies nausea, vomiting, fever, chills. Also endorses pain substernal region. She remains unable to clarify what makes it better or worse. OBJECTIVE Vitals: Temp: [36.2 C (97.2 F)-36.8 C (98.2 F)] 36.2 C (97.2 F) Pulse: [78-150] 116 Resp: [20-28] 20 BP: (108-140)/(54-90) 135/59 SpO2: [96 %-100 %] 98 % O2 Device: Nasal cannula O2 Flow Rate (L/min): [1 L/min-2.5 L/min] 1 L/min Weight: Admission weight: 90.3 kg (199 lb 1.2 oz) Last 3 Weight Readings 12/22/23 1208 12/23/23 0425 12/24/23 0416 Weight: 90.3 kg (199 lb 1.2 oz) 92.1 kg (203 lb 0.7 oz) 96.1 kg (211 lb 13.8 oz) Input/Output: Intake/Output Summary (Last 24 hours) at 12/24/2023 1058 Last data filed at 12/24/2023 0500 Gross per 24 hour Intake 1244.95 ml Output 1060 ml Net 184.95 ml Net IO Since Admission: 398.14 mL [12/24/23 1058] Physical Exam: General appearance: Alert, worsened orientation today. Oriented only to person in president. not oriented to place, time.. HEENT: atraumatic, EOM intact, sclera anicteric, no erythema/exudate Neck: supple, without lymphadenopathy Lungs: Lungs are clear to auscultation bilaterally. She is satting well on minimal nasal cannula 2 L. saturating well at near 100%. Heart: Regular rate rhythm. Appears improved from days prior. Abdomen: Abdomen is soft. It is remains somewhat tender to palpation. Negative rebound. Colostomy in place with non melanotic stool. Surgical wound present.. Extremities: Scaly lower extremities. Unable to appreciate significant lower extremity edema at this time. Stage IV pressure ulcer of sacrum in place. See media for pictures. Neurologic: Patient has interval tremor in extremities when anxious which she states is a chronic process for her. Psychiatric: appropriate affect Labs Results from last 7 days Lab Units 12/24/23 0520 12/23/23 1735 12/23/23 0945 12/23/23 0326 12/22/23 1234 WBC X10E9/L 17.9* -- -- 13.9* 15.9* HEMOGLOBIN g/dL 7.9* 8.1* 7.3* 8.2* 8.1* HEMATOCRIT % 24.4* 24.5* 22.5* 25.4* 24.3* PLATELETS X10E9/L 211 -- -- 176 197 Results from last 7 days Lab Units 12/22/231957 APTT sec >150* INR 1.2* Results from last 7 days Lab Units 12/24/23 0520 12/23/23 0326 12/22/23 1242 12/22/23 1234 SODIUM mmol/L 144 142 -- 142 POTASSIUM mmol/L 4.0 4.5 -- 4.5 CHLORIDE mmol/L 115* 111* -- 105 CO2 mmol/L 19* 22 -- 24 BUN mg/dL 27 25 -- 32* CREATININE mg/dL 1.17* 1.17* -- 1.38* POC CREATININE mg/dL -- -- 1.4* -- CALCIUM mg/dL 6.8* 7.1* -- 7.8* MAGNESIUM mg/dL -- 1.9 -- 1.9 Results from last 7 days Lab Units 12/24/23 0520 12/23/2332512/22/23 1234 ALBUMIN g/dL 2.3* 2.3* 2.6* TOTAL PROTEIN g/dL 6.0 6.2 6.5 ALT U/L 18 23 28 AST U/L 23 33 36 ALK PHOS U/L 198* 261* -- Results from last 7 days Lab Units 12/24/23 0520 12/23/23204712/23/23 1747 BEDSIDE GLUCOSE mg/dL -- 104* 116* GLUCOSE mg/dL 99 -- -- Lab Results Component Value Date HGBA1C 6.8 (H) 12/22/2023 Results from last 7 days Lab Units 12/23/23 1438 12/23/23 0945 12/23/2332512/22/23195712/22/23 1841 TROPONIN I ng/mL 0.33* 0.34* 0.58* -- -- BNP pg/mL -- -- -- -- 828* D DIMER ng/mL DDU -- -- -- 7,716* -- Results from last 7 days Lab Units 12/22/23 1234 LIPASE U/L 135* Results from last 7 days Lab Units 12/22/23 1234 FERRITIN ng/mL 211 Lab Results Component Value Date WBCU 40 (H) 12/22/2023 SPECIFICGRA 1.020 12/22/2023 LEUKOCYTE Trace (A) 12/22/2023 NITRITEN Negative 12/22/2023 PHNUR 7.0 12/22/2023 PROTEINNUR 100 (A) 12/22/2023 KETONESNUR Negative 12/22/2023 UROBILINOGEN 1.0 12/22/2023 BLOODHGBNU Negative 12/22/2023 Imaging X-ray chest 1 view Result Date: 12/23/2023 XR CHEST 1 VW History: Short of breath. One view study. Comparison: 12/22/2023 and 11/30/2023 Impression: * No significant interval change.Cardiac silhouette remains grossly enlarged but unchanged. This may represent cardiomegaly and/or pericardial effusion. Chronic elevation the right hemidiaphragm is noted. Unchanged left PICC line. No acute pulmonary process is seen. No large effusion is noted Finalized by Yany Vargas MD on 12/23/2023 2:11 PM Vas venous duplex lwr bilateral Result Date: 12/23/2023 Right: Lower extremity deep veins are compressible with spontaneous phasic spectral Doppler waveforms; superficial veins are compressible without intraluminal content. Left: Lower extremity deep veins are compressible with spontaneous phasic spectral Doppler waveforms; superficial veins are compressible without intraluminal content. General: Incidental finding of left nodular mass without color flow in the groin. Conclusions: BILATERAL: NO EVIDENCE of deep or superficial vein thrombosis of the lower extremities. LEFT:Incidental finding may warrant further investigation Recommendations: Any questions prior to finalization, please call the reading physician during normal business hours at the phone number beside their name. Ultrasound abdomen limited Result Date: 12/22/2023 US ABDOMEN LMTD HISTORY: Cholecystitis COMPARISON: CT abdomen and pelvis today PROCEDURE: Real-time grayscale ultrasound and limited color flow performed. FINDINGS: Liver demonstrate normal echogenicity. No discrete masses visualized. MPV demonstrates low velocity flow of 11.3 cm/s. Common bile duct is nondilated, measuring 4 mm. Gallbladder wall thickness is within normal limits. The gallbladder is diffusely distended with layering internal debris, sludge. No shadowing echogenic foci. Negative sonographic Andre's sign. The visualized portions of the pancreas are within normal limits. Trace fluid seen adjacent to the right hepatic lobe. IMPRESSION: * Gallbladder distention with internal debris/sludge. No gallbladder wall thickening to suggest acute cholecystitis. Finalized by Gracie Ontiveros MD on 12/22/2023 6:[address] chest with contrast Result Date: 12/22/2023 CLINICAL STATEMENT: Colon cancer, assess response to treatment, sepsis COMPARISON: 11/07/2023 TECHNIQUE: Axial views were obtained from the lung apices to the lung bases following the uneventful administration of 100 mL IV contrast. Coronal and sagittal MPR reconstructions were performed. FINDINGS: The visualized portion of the thyroid gland is stable, possible underlying small cysts or nodules. Interval resolution of the bilateral small pleural effusions. There is now residual posterior dependent atelectatic changes. Atelectasis versus groundglass opacity of the left lung apex (image 21 of 87) which measures up to 1.4 cm in diameter. No new solid pulmonary nodules. Precarinal mediastinal lymph node measures 11 x 12 mm, previously 8 x 9 mm. The ascending aorta, the aortic arch, and the descending aorta show demonstrate no aneurysmal dilatation. Moderate calcifications of the aortic arch. Normal three-vessel branching pattern. The pulmonary arteries show no large proximal filling defects. Pulmonary arteries are not enlarged. The heart is normal in size and morphology. Multivessel severe coronary artery calcifications. SVC appears normal. The esophagus, the trachea, and the main bronchi show no definite abnormality. Abdominal findings discussed on CT abd pelvis performed concurrently. IMPRESSION: * There is a new focal opacity of the left lung apex pleural. This may represent focal infectious or atelectatic infiltrate though developing groundglass or solid nodule cannot be excluded. Recommend 3 month follow-up. * Slight increased size of a precarinal mediastinal node which measures 12 mm, previously 9 mm. Change in size could be reactive or metastatic, continued follow-up recommended. * No new solid pulmonary nodes. * Resolution of previous bilateral effusions. * Stable cardiomegaly and multivessel coronary artery calcifications. Finalized by Gracie Ontivreos MD on 12/22/2023 3:[address] abdomen and pelvis with contrast Result Date: 12/22/2023 CLINICAL INFORMATION: Sepsis; Metastatic disease evaluation; Colon cancer, staging; hx colon ca, tachy, hypotensive, abdominal wall wound with sri pus. COMPARISON: 11/07/2023 TECHNIQUE: CT of the abdomen and pelvis with intravenous contrast. FINDINGS: LOWER CHEST: Interpreted separately. LIVER AND BILIARY: Distended gallbladder with periportal edema. No suspicious focal liver lesion. PANCREAS: Within normal limits. SPLEEN: Within normal limits. ADRENALS: Within normal limits. KIDNEYS, URETERS, AND BLADDER: Symmetric enhancement. No suspicious lesion or hydronephrosis. Bladder gas with indwelling Dasilva catheter. GI TRACT AND PERITONEUM: Prior heart and stomach. Left lower quadrant colostomy. No postoperative obstruction. Thickened rectum/anal canal. Presumed endoscopy clips in the cecum; correlate with any recent intervention. Prior small bowel resection the right lower quadrant. Nonvisualized appendix. No free air. Small volume free fluid VASCULATURE: Normal caliber aorta. Advanced atherosclerosis of the SMA, poorly characterize given technique. LYMPH NODES: Within normal limits. REPRODUCTIVE ORGANS: No asymmetry. MUSCULOSKELETAL: Soft tissue defect over the sacrum, approximately 2 cm with skin thickening and inflammation, likely extending to the sacrum. Osteopenia. No acute osseous abnormality. IMPRESSION: 1. Distended gallbladder with periportal edema. Correlate with LFTs/right upper quadrant pain. Consider ultrasound follow-up. 2. Large sacral decubitus soft tissue ulcer. Underlying osteomyelitis not excluded. 3. Nonspecific thickening of the rectum/anal canal. 4. Additional findings as above All CT scans at this facility use dose modulation, iterative reconstruction, and/or weight based dosing when appropriate to reduce radiation dose to as low as reasonably achievable. Finalized by Krystal Crowley MD on 12/22/2023 3:01 PM X-ray chest 1 view Result Date: 12/22/2023 Portable chest: HISTORY: Cough and sepsis. Single view the chest was obtained. Cardiac silhouette is enlarged but unchanged. Pulmonary vasculature is congested. No pneumothorax seen. Central line tip in the region of the SVC. IMPRESSION: Cardiomegaly and vascular congestion. Finalized by Ray Vo MD on 12/22/2023 1:52 PM MR abdomen without contrast Result Date: 12/22/2023 History: Rectal cancer. Metastatic survey. Exam/Technique: Multiplanar, multisequence MR imaging is obtained of the abdomen without intravenous contrast. The patient was unable to tolerate the full extent of the examination and an appreviated protocol was obtained. Comparison: CT abdomen 11/07/2019 Findings: Gallbladder is moderately distended with dependent sludge possible small stones. This is exerting some mass effect on the common bile duct or no ductal dilatation demonstrated. Pancreas and pancreatic duct appear to be within normal limits. No acute liver, spleen or adrenal pathology demonstrated. Kidneys show no evidence hydronephrosis. Left lower quadrant ostomy partially visualized without gross complication. IMPRESSION: * Abbreviated MRI due to patient claustrophobia. * Moderate gallbladder distention with sludge and potentially small stones. No acute findings otherwise. Finalized by Jamie Lester DO on 12/22/2023 12:53 PM Cultures Microbiology Results Procedure Component Value Units Date/Time Urine culture [[id number]] (Abnormal) Collected: 12/22/23 1326 Specimen: Urine from Dasilva Catheter Specimen Updated: 12/23/23 1319 Culture >100,000 ORGANISMS/mL ENTEROCOCCUS SPECIES Ampicillin or Amoxicillin is the drug of choice for uncomplicated cystitis caused by enterococci. Cephalosporins are inappropriate. 50,000 to 100,000 ORGANISMS/mL NORMAL URO GENITAL LALY The urine of patients with catheters usually becomes colonized. Treatment may not be indicated. Correlate these findings with clinical presentation. If sepsis is suspected, contact laboratory for reporting AST results. Wound culture superficial includes gram stain [[id number]] (Abnormal) (Susceptibility) Collected: 12/22/23 1231 Specimen: Wound Swab Updated: 12/24/23 1020 Gram Stain Result >25 WHITE BLOOD CELLS/LPF 10 to 24 SQUAMOUS EPITHELIAL CELLS/LPF RARE GRAM POSITIVE COCCI IN CLUSTERS INTRACELLULAR EXTRACELLULAR RARE PLEOMORPHIC GRAM POSITIVE RODS Culture FEW ESCHERICHIA COLI RARE STAPHYLOCOCCUS AUREUS : SUSCEPTIBILITY TESTING IN PROGRESS RARE STREPTOCOCCUS PYOGENES (GROUP A) ALONG WITH FEW NORMAL SKIN LALY Susceptibility Escherichia Coli PRESTON METHOD (Preliminary) AMP/SULBACTAM >=32/16 Resistant Ampicillin >=32 Resistant Cefazolin <=4 (VIEW NOTES) [1] Ceftriaxone <=1 Susceptible Ciprofloxacin >=4 Resistant Gentamicin <=1 Susceptible Levofloxacin >=8 Resistant PIPERACIL/TAZOBACTAM <=4 Susceptible Tobramycin <=1 Susceptible TRIMETH/SULFAMETHOXAZOLE >=16/304 Resistant [1] CLSI interpretive criteria for nonurinary isolates are as follows: <=2 Susceptible, 4 Intermediate, Resistant >=8. Contact Microbiology laboratory if further susceptibility testing for Cefazolin is required. Blood Culture [[id number]] Collected: 12/22/23 121 Specimen: Blood Updated: 12/23/23 1303 Culture NO GROWTH 1 DAY Blood Culture [[id number]] Collected: 12/22/23 1218 Specimen: Blood Updated: 12/23/23 1303 Culture NO GROWTH 1 DAY Hospital Medications: Scheduled: aspirin, 81 mg, oral, Daily atorvastatin, 20 mg, oral, Nightly cefepime (MAXIPIME) IV, 2,000 mg, intravenous, Q12H metoprolol tartrate, 25 mg, oral, BID metroNIDAZOLE, 500 mg, intravenous, Q8H pantoprazole, 40 mg, oral, QAM AC sodium hypochlorite, 1 Application, topical, BID Infusions: dextrose 5 % in water, 100 mL/hr dextrose 5 % in water 1,000 mL with potassium chloride 40 mEq, sodium bicarbonate 8.4 % (1 mEq/mL) 50 mEq infusion, 75 mL/hr heparin, 300-3,500 Units/hr, Last Rate: 1,000 Units/hr (12/23/232125) sodium chloride 0.9 %, 20 mL/hr As Needed: acetaminophen calcium gluconate calcium gluconate calcium gluconate dextrose dextrose 5 % in water dextrose 50 % in water (D50W) glucagon (human recombinant) heparin (porcine) iohexoL levalbuterol magnesium sulfate magnesium sulfate metoprolol (LOPRESSOR) IV ondansetron potassium chloride OR potassium chloride sodium chloride sodium chloride sodium chloride 0.9 % sodium chloride Allergies: Allergies Allergen Reactions Oats ASSESSMENT Sepsis, multiple sources- stage 4 pressure ulcer, vs malignancy, vs picc LUE previously for TPN, vs surgical wounds, vs likely acute dirk, previously treated for Enterococcus UTI Afeb HS. BP stabilized. WBC slightly uptrending. Mentation worsening. BCX NGTD Wound CX few MDR ecoli, rare staph and strep. Urine CX enterococcus- susceptibilities tending A fib RVR, likely secondary to recent infection- appears improved. . Hypoglycemia, likely sepsis induced -improving Elevated troponin level peak 0.58, likely demand related secondary to sepsis, afib rvr, downtrending. Severely elevated [id number] secondary to infection, malignancy. CT chest with contrast did not reveal large pulmonary embolism. Duplex US reassuring against DVT Patient oxygen requirement remains stable on minimal NC. Altered mental status- likely secondary to current infection Hypoxemic respiratory failure possibly secondary to aspiration PNA- improving. Borderline Acute on chronic kidney injury CKD4, Cr 1.38 from baseline 1.2 - likely secondary to pre-renal vs sepsis induced ATN, resolved Hx prior intermittent HDS last admission Normocytic anemia- stable around 8 on heparin infusion Interval enlargement of mediastinal lymph nodes, ground glass opacification in L Lung apex concerning for metastasis vs reactive process Hx colorectal cancer s/p exlab small bowel resectoin with colostomy History of enterococcus faecalis, bacteroides osteomyelitis sacrum Stage 4 pressure ulcer sacrum T2DM A1c 6.3 Mixed hyperlipidemia PLAN Continue empiric cefepime, flagyl empiric abx for presumed intrabdominal source, ID consulted for assistance in abx management Obtain further sensitivity results. Transition dig to toprolol 25 BID for fib rvr during admission Continue cardiology heparin infusion given AFib RVR, high-risk thrombotic state Trend H&H q.8 hours while on heparin infusion given history of prior bleed last admission. Continue rehydration with D5 NS given prior blood pressures, sepsis, hypoglycemic episodes yesterday while NPO Continue aspirin, Lipitor for PAD, CAD, mixed hyperlipidemia Patient would benefit from CT in 3 months to follow up mediastinal lymph nodes seen on admission. Possible EBUS at that time if increase in size or PET avid Possible coronary angiogram prior to DC per card. Complicated case d/t anemia, CKD. Would prefer to keep NPO while still altered to reduce asp risk. Wound care consulted for assistance in management of surgical wound, sacral ulcer DVT prophylaxis: heparin infusion Diet: adult regular texture Fluids: d5 ns Disposition: TBD Code Status: full Lexx Medina MD PGY-1 Internal Medicine Associated attestation - Radha Villagomez MD - 12/24/2023 11:34 AM EDT Attending Note I saw the patient, I performed/participated in the critical/greenberg portions of the service, I was directly involved in the management and treatment plan of the patient. I reviewed the resident's note and agree with the findings and plan. The patient remains pleasantly disoriented. No family available at bedside. I spoke to the patient's over the phone discussing documented in previous note. Severe sepsis: Remains tachycardic with leukocytosis. Infectious Disease service consulted. Continue antibiotics. AFib with RVR, elevated troponin: On heparin infusion. Repeat EKG today. Rate controlled. Trend troponin, cardiology following. Electrolyte disturbances: Replace as needed. Non-anion gap metabolic acidosis: Continue IV fluid hydration with bicarbonate. Images from the original note were not included. [facility] [place] [address] PROGRESS NOTE Harris Castrejon Patient resting in bed, almost dosing off. Complaining of some pain in her legs and lower abdomen, no complain of chest pain since yesterday. Yesterday afternoon she had episodes of RVR. Overnight and this morning heart rate well controlled and remains in 90-110, less than 3s pauses. SUBJECTIVE Allergies: Allergies Allergen Reactions Oats CURRENT MEDICATIONS aspirin, 81 mg, oral, Daily atorvastatin, 20 mg, oral, Nightly cefepime (MAXIPIME) IV, 2,000 mg, intravenous, Q12H metoprolol tartrate, 25 mg, oral, BID metroNIDAZOLE, 500 mg, intravenous, Q8H pantoprazole, 40 mg, oral, QAM AC sodium hypochlorite, 1 Application, topical, BID CONTINUOUS INFUSIONS dextrose 5 % in water, 100 mL/hr dextrose 5 % in water 1,000 mL with potassium chloride 40 mEq, sodium bicarbonate 8.4 % (1 mEq/mL) 50 mEq infusion, 75 mL/hr heparin, 300-3,500 Units/hr, Last Rate: 1,000 Units/hr (12/23/232125) sodium chloride 0.9 %, 20 mL/hr Review of Systems: Cardiovascular: No chest pain, dyspnea on exertion, palpitations or loss of consciousness. No cough, hemoptysis, pleuritic pain, or phlebitis. Respiratory: No cough or wheezing, no sputum production, no hematemesis. Neurological: No headache, diplopia, change in muscle strength, numbness or tingling. No change in gait, balance, coordination, mood, affect, memory, mentation, behavior. Hematologic/Lymphatic: No abnormal bruising or bleeding, blood clots or swollen lymph nodes. OBJECTIVE CBC: Results from last 7 days Lab Units 12/24/23 0520 12/23/23 1735 12/23/23 0945 12/23/23 0326 12/22/23 1234 WBC X10E9/L 17.9* -- -- 13.9* 15.9* HEMOGLOBIN g/dL 7.9* 8.1* 7.3* 8.2* 8.1* HEMATOCRIT % 24.4* 24.5* 22.5* 25.4* 24.3* MCV fL 90 -- -- 90 88 PLATELETS X10E9/L 211 -- -- 176 197 BMP: Results from last 7 days Lab Units 12/24/23 0520 12/23/23 0326 12/22/23 1242 12/22/23 1234 SODIUM mmol/L 144 142 -- 142 POTASSIUM mmol/L 4.0 4.5 -- 4.5 CHLORIDE mmol/L 115* 111* -- 105 CO2 mmol/L 19* 22 -- 24 BUN mg/dL 27 25 -- 32* CREATININE mg/dL 1.17* 1.17* -- 1.38* POC CREATININE mg/dL -- -- 1.4* -- CALCIUM mg/dL 6.8* 7.1* -- 7.8* MAGNESIUM mg/dL -- 1.9 -- 1.9 PT/INR: Results from last 7 days Lab Units 12/22/231957 PROTIME sec 13.8* INR 1.2* APTT: MAG: Results from last 7 days Lab Units 12/23/23 0326 12/22/23 1234 MAGNESIUM mg/dL 1.9 1.9 D Dimer: Results from last 7 days Lab Units 12/22/231957 D DIMER ng/mL DDU 7,716* Troponin I Results from last 7 days Lab Units 12/23/23 1438 12/23/23 0945 12/23/23 0326 TROPONIN I ng/mL 0.33* 0.34* 0.58* ProBNP Results from last 7 days Lab Units 12/22/23 1841 BNP pg/mL 828* Lipid Panel: Lab Results Component Value Date CHOL 127 (L) 09/13/2021 TRIG 198 (H) 11/25/2023 HDL 38 (L) 09/13/2021 Liver Panel: No results found for: ALB HgA1C: Lab Results Component Value Date HGBA1C 6.8 (H) 12/22/2023 ABG: Lab Results Component Value Date pH 7.488 (H) 11/18/2023 PCO2 29.4 (L) 11/18/2023 PO2 128 (H) 11/18/2023 Base,Excess 1.0 10/29/2023 Base,Deficit 1.0 11/18/2023 Portable HCO3 22.2 11/18/2023 SPO2 97 11/18/2023 CV TESTING HISTORY: ECHO: Echo limited W/ contrast Result Date: 11/07/2023 Left Ventricle: Systolic function is mildly to moderately decreased with an ejection fraction of 40-45%. Mitral Valve: There is mild regurgitation. Tricuspid Valve: There is mild regurgitation. Pericardium: There is no pericardial effusion. There is a left pleural effusion. Echo complete W/O contrast Result Date: 10/21/2023 Left Ventricle: Systolic function is normal with an ejection fraction of 55-60%. Poor image quality study with very poor endocardial definition. Normal left ventricular size with probably mild concentric left ventricular hypertrophy. Grossly normal left ventricular systolic function. No significantly abnormal stenotic or regurgitant flows are identified Echo complete W/ contrast Result Date: 09/04/2023 Left Ventricle: There is mild concentric increased wall thickness/hypertrophy. Systolic function is mildly to moderately decreased with an ejection fraction of 40-45%. Mitral Valve: There is mild to moderate regurgitation with a centrally directed and a posteriorly directed jet. There is no evidence of mitral valve stenosis. Tricuspid Valve: There is moderate regurgitation. The tricuspid valve regurgitation jet is eccentric. There is no evidence of tricuspid valve stenosis. STRESS: No results found. HOLTER: No results found. CARDIAC CATH: No results found. CAROTID: No results found. CXR: X-ray chest 1 view Result Date: 12/23/2023 XR CHEST 1 VW History: Short of breath. One view study. Comparison: 12/22/2023 and 11/30/2023 Impression: * No significant interval change.Cardiac silhouette remains grossly enlarged but unchanged. This may represent cardiomegaly and/or pericardial effusion. Chronic elevation the right hemidiaphragm is noted. Unchanged left PICC line. No acute pulmonary process is seen. No large effusion is noted Finalized by Yany Vargas MD on 12/23/2023 2:11 PM X-ray chest 1 view Result Date: 12/22/2023 Portable chest: HISTORY: Cough and sepsis. Single view the chest was obtained. Cardiac silhouette is enlarged but unchanged. Pulmonary vasculature is congested. No pneumothorax seen. Central line tip in the region of the SVC. IMPRESSION: Cardiomegaly and vascular congestion. Finalized by Ray Vo MD on 12/22/2023 1:52 PM X-ray chest 1 view Result Date: 11/30/2023 HISTORY: A 68-year-old female with the history of the PICC line placement. TECHNIQUE: Portable semierect AP view of chest: One view COMPARISON: Comparison is made with the chest radiograph of the 11/29/2023. FINDINGS: Examination is compromised due to poor inspiratory effort and patient's body habitus. There has been interval replacement of the PICC line through the left upper extremity approach with its tip at the junction of the superior vena cava and right atrium. There is minimal atelectasis in the right midlung field. There is a mild vascular congestion. No pneumothorax is identified. Costophrenic angles are clear. Heart is enlarged. There are aortic calcifications. Trachea is in midline. Hemidiaphragms are normal in position. IMPRESSION: * PICC line through the left upper extremity approach with its tip at the junction of the superior vena cava and right atrium. * No evidence of pneumothorax. * Mild vascular congestion and minimal right midlung field atelectasis. Finalized by Edvin Weinberg MD on 11/30/2023 4:13 PM X-ray chest 1 view Result Date: 11/29/2023 XR CHEST 1 VW HISTORY: Shortness of breath COMPARISON: Chest radiograph 11/21/2023 and 11/20/2023 TECHNIQUE: AP portable upright view. obtained. FINDINGS: Right-sided PICC line with tip overlying expected location of the SVC. Stable enlarged heart size. Mild bronchovascular crowding and interstitial edema. Bibasilar atelectasis. No focal consolidation. No pneumothorax or large pleural effusion. IMPRESSION: * Mild vascular congestion and interstitial edema. * Bibasilar atelectasis without focal consolidation. Approved by Resident Sonya Wright MD on 11/29/2023 5:33 PM I, Krystal Anderson MD have personally reviewed the image(s) and agree with and/or edited the report Finalized by Krystal Anderson MD on 11/29/2023 5:43 PM X-ray chest 1 view Result Date: 11/21/2023 Clinical history: Congestion, pleural effusions. Comparisons: 11/17/2023 through 11/20/2023. Findings: AP portable upright chest radiograph obtained 6:17 AM. Heart size remains enlarged. Pulmonary vasculature is mildly increased was venous redistribution to the upper lungs. There is hypoventilation with low lung volumes and crowding of bronchovascular markings in both lung bases. No focal pulmonary parenchymal consolidation. No large pleural effusion. Right-sided PICC again noted with tip at expected location of SVC. Left-sided PICC tip terminates at the expected location of the right atrium. IMPRESSION: 1. Persistent congestive changes yet interval improvement in atelectasis and consolidation in both lungs. Finalized by Mendoza Corbett MD on 11/21/2023 8:59 AM X-ray chest 1 view Result Date: 11/20/2023 Single view chest History:hypoxia Difficulty breathing, shortness of breath Comparison: 11/18/2023 Findings: Single portable view of the chest. Stable cardia mediastinal silhouette. Stable left PICC. There is mild vascular congestion with small pleural effusions and lower lung atelectasis. Impression: No significant interval change. Finalized by Krystal Anderson MD on 11/20/2023 8:35 AM X-ray chest 1 view Result Date: 11/18/2023 CHEST SINGLE AP VIEW 11/18/2023 12:03 PM CLINICAL INDICATION: picc placement COMPARISON: Chest one view 11/18/2023 IMPRESSION: 1. Right-sided PICC is grossly stable. Right PICC tip is obscured. Interval placement of left-sided PICC. Left PICC tip is obscured but extends at least to the cavoatrial junction. 2. Similar enlarged cardiac silhouette with pulmonary vascular congestion and interstitial edema. Similar small right pleural effusion with right basilar atelectasis or airspace disease. Finalized by Donnie Rojas MD on 11/18/2023 12:08 PM X-ray chest 1 view Result Date: 11/18/2023 Procedure: Chest x-ray performed Number of views:AP portable upright History:Shortness of breath Comparison:11/17/2023 Findings: The heart and lungs show no acute findings, and the mediastinum and bobby are grossly negative . Impression: No significant interval change Finalized by Harris Wilde DO on 11/18/2023 11:11 AM X-ray chest 1 view Result Date: 11/17/2023 Single view chest History:dyspnea Difficulty breathing, shortness of breath Comparison: 11/11/2023 Findings: Single portable view of the chest. Removal of the endotracheal tube and enteric catheter. Right PICC tip in SVC. Regular catheter is been removed. There is small pleural effusions with bilateral lower lung atelectasis or pneumonia and/or mild vascular congestion. Impression: Bilateral pleural effusions and bilateral lower lung atelectasis versus pneumonia and mild vascular congestion. Finalized by Krystal Anderson MD on 11/17/2023 5:23 PM X-ray chest 1 view Result Date: 11/11/2023 HISTORY: Intubated. Shortness of breath. COMPARISON: 11/10/2023. TECHNIQUE: Single portable AP view of the chest. FINDINGS: The ETT terminates 5.0 cm above the kathleen. The enteric tube courses below the diaphragm and out of the [id number]. Stable position of the right PICC in right central venous catheter. The trachea is midline. Stable cardiomegaly. Improving pulmonary vascular congestion and bibasilar opacities. Probable residual retrocardiac opacities. No pneumothorax. IMPRESSION: * Improving pulmonary vascular congestion and pleural effusions. * Persistent retrocardiac opacity, likely residual small pleural effusion or atelectasis. Approved by Resident Luly Kim MD on 11/11/2023 4:46 AM I, Krystal Anderson MD have personally reviewed the image(s) and agree with and/or edited the report Finalized by Krystal Anderson MD on 11/11/2023 4:54 AM X-ray chest 1 view Result Date: 11/10/2023 XR CHEST 1 VW CLINICAL HISTORY: Hypoxia COMPARISON: 11/09/2023 1 view obtained. FINDINGS: Endotracheal tube unchanged. Right IJ line unchanged. Right PICC line unchanged. Stable but severe cardiomegaly Pulmonary venous congestion increased since previous exam Increasing right pleural effusion and right lower lobe airspace density likely atelectasis. small left pleural effusion and left lower lobe atelectasis unchanged. Some interstitial edema in the perihilar regions and in the right lung increased IMPRESSION: * Findings most likely representing congestive heart failure with progression since previous examination Finalized by Neymar Yang MD on 11/10/2023 6:03 AM X-ray chest 1 view Result Date: 11/09/2023 CLINICAL INFORMATION: Respiratory failure on ventilator support COMPARISON: Chest radiograph dated 11/08/2023. VIEWS: 1. FINDINGS: Tip of endotracheal tube is 2.6 cm above the kathleen. Nasogastric tube has tip in the stomach. Right internal jugular central line has tip in proximal superior vena cava. Right PICC line has tip in superior vena cava. Low lung volumes. No interval change of moderate bilateral pleural effusions and bibasilar opacities. Moderate cardiomegaly. No pneumothorax. No free air below the diaphragm. IMPRESSION: No interval change of moderate bilateral pleural effusions and bibasilar opacities. Finalized by Lily Lorenzo MD on 11/09/2023 7:21 AM X-ray chest 1 view Result Date: 11/08/2023 History: Intubated. Reassessing Exam/Technique: Portable upright AP chest Comparison: Yesterday Findings: Endotracheal and enteric tubes and right jugular central line all unchanged with the tip of the endotracheal tube approximately 1.5 cm above the kathleen. With a suboptimal degree of inspiration no interval change is demonstrated with no new acute pulmonary or pleural abnormalities. Cardiomegaly appears grossly unchanged with magnification on this AP view. IMPRESSION: No interval change displayed from yesterday Finalized by Magdi Lyn MD on 11/08/2023 8:38 AM X-ray chest 1 view Result Date: 11/07/2023 CHEST 1 VIEW HISTORY: ET tube placement, NG placement, question free air COMPARISON: 11/06/2023 FINDINGS: ET tube with tip 3.5 cm above kathleen. Right PICC and right IJ central venous catheter is in place. Gastric drainage tube extends into the stomach. Mild bibasilar opacities, likely atelectasis. Probable small layering pleural effusions. No pneumothorax. No free intraperitoneal air identified on this single image. IMPRESSION: * Well-positioned lines and tubes. * Small layering pleural effusions with adjacent bibasilar opacities, likely atelectasis. * No free intraperitoneal air identified on this single image. Finalized by Vincent Pruett MD on 11/07/2023 12:15 PM X-ray chest 1 view Result Date: 11/06/2023 HISTORY: Sob. COMPARISON: 11/05/2023. TECHNIQUE: Single portable AP view of the chest. FINDINGS: Stable position of the right central venous catheter, the tip of which projects over the expected position of the proximal SVC. The trachea is midline. The cardiomediastinal silhouette is stable. Unchanged bibasilar opacities, likely representing atelectasis. No pneumothorax. IMPRESSION: * No significant interval change. Unchanged bibasilar opacities, likely representing atelectasis. Approved by Resident Luly Kim MD on 11/06/2023 5:26 AM I, Sonya Olson MD have personally reviewed the image(s) and agree with and/or edited the report Finalized by Sonya Olson MD on 11/06/2023 5:31 AM X-ray chest 1 view Result Date: 11/05/2023 HISTORY: Central line placement. COMPARISON: 10/31/2023. TECHNIQUE: Single portable AP view of the chest. FINDINGS: There has been interval placement of a right central venous catheter, the tip of which projects over the expected position of the proximal SVC. Stable position of the right PICC. The trachea is midline. The cardiomediastinal silhouette is stable. Improving bibasilar opacities. No pneumothorax. IMPRESSION: * The tip of the right central venous catheter projects over the expected position of the proximal SVC. No pneumothorax. * Improving bibasilar opacities. Approved by Resident Luly Kim, MD on 11/05/2023 2:11 AM I, Sonya Olson MD have personally reviewed the image(s) and agree with and/or edited the report Finalized by Sonya Olson MD on 11/05/2023 2:17 AM X-ray chest 1 view Result Date: 10/31/2023 XR CHEST 1 VW HISTORY: Shortness of breath COMPARISON: 10/30/2023 FINDINGS: AP portable upright film obtained. Right upper extremity PICC with tip projecting near the cavoatrial junction. Unchanged, enlarged cardiac silhouette. Persistent vascular congestion and bilateral pleural effusions. No pneumothorax. Left basilar opacity, most likely atelectasis. IMPRESSION: Persistent vascular congestion and bilateral pleural effusions. Approved by Resident Santana Goss MD on 10/31/2023 7:40 AM I, Carol Alex MD have personally reviewed the image(s) and agree with and/or edited the report Finalized by Carol Alex MD on 10/31/2023 7:45 AM X-ray chest 1 view Result Date: 10/30/2023 History: PICC line placement EXAM: Chest AP portable upright 7:42 PM COMPARISON: 5:58 AM FINDINGS: Right upper extremity PICC line tip cavoatrial junction. NG tube in stomach. Stable cardiac silhouette. Mild vascular congestion. No pneumothorax. Basilar airspace opacities, small pleural effusions. IMPRESSION: Right PICC line tip cavoatrial junction. Otherwise, no significant change. Finalized by Reginald Da Silva MD on 10/30/2023 8:35 PM X-ray chest 1 view Result Date: 10/30/2023 Clinical history: CHF Views: 1 Comparison: 10/27/2023 Findings/Impression: 1. Heart size prominent. Vasculature is engorged increased from previous exam. 2. Pulmonary infiltrates likely due to edema/CHF but pneumonia difficult exclude appropriate clinical setting. No definite pneumothorax. Pleural effusions right side worse than left Finalized by Carol Alex MD on 10/30/2023 6:12 AM X-ray chest 1 view Result Date: 10/27/2023 CLINICAL INFORMATION: Hypoxia COMPARISON: Chest radiograph dated 10/24/2023. VIEWS: 1. FINDINGS: Tip of endotracheal tube is 5 cm above the kathleen. Nasogastric tube has tip in the stomach. Cardiac and mediastinal shadows are normal. No infiltrates. No effusions. No pneumothorax. No free air below the diaphragm. IMPRESSION: - Satisfactory positioning of endotracheal and nasogastric tubes. - No radiographic evidence for acute cardiopulmonary disease. Finalized by Lily Lorenzo MD on 10/27/2023 7:43 AM X-ray chest 1 view Result Date: 10/24/2023 Procedure: Chest x-ray performed Number of views:1 History:Shortness of breath Comparison:10/23/2023 Findings: The heart and lungs show no acute findings, and the mediastinum and bobby are grossly negative . Tubes and lines are stable. Impression: 1. No acute change. Finalized by Jose Tinoco MD on 10/24/2023 6:30 AM X-ray chest 1 view Result Date: 10/23/2023 Single view chest History:resp failure Difficulty breathing, shortness of breath Comparison: 10/20/2023 Findings: Single portable view of the chest. Stable endotracheal tube and enteric catheter. Stable cardiomediastinal silhouette. There is no focal consolidation, large effusion or pneumothorax. Impression: Stable tubes and lines. No significant interval change. Finalized by Krystal Anderson MD on 10/23/2023 6:15 AM X-ray chest 1 view Result Date: 10/20/2023 CLINICAL INFORMATION: Respiratory distress. Respiratory failure and ventilator support COMPARISON: Chest radiograph dated 10/19/2020. VIEWS: 1. FINDINGS: Tip of endotracheal tube is 4 cm above the kathleen. Nasogastric tube has tip in the stomach. Cardiac and mediastinal shadows are normal. No infiltrates. No effusions. No pneumothorax. No free air below the diaphragm. IMPRESSION: Satisfactory positioning of endotracheal and nasogastric tubes. No radiographic evidence for acute cardiopulmonary disease. Finalized by Lily Lorenzo MD on 10/20/2023 7:08 AM X-ray chest 1 view Result Date: 10/19/2023 History: Intubation Technique: A portable single frontal view the chest was obtained. Comparison: 10/19/2023 at 2:54 AM Findings: There is been improved aeration of the left lung since the previous examination. Endotracheal tube remains in place. Has retracted slightly since previous examination but continues to have its tip in the right mainstem bronchus. Retraction of approximately 4 cm is recommended. Impression: * The tip of the endotracheal tube remains in the right mainstem bronchus. Retraction by about 4 cm is recommended. * Improved aeration of the left lung since the prior study. Finalized by Sonya Olson MD on 10/19/2023 3:24 AM X-ray chest 1 view Result Date: 10/19/2023 XR CHEST 1 VW HISTORY: Shortness of breath, respiratory failure COMPARISON: Chest x-ray 10/18/2023 FINDINGS: There is complete interval opacification of the left lung with air bronchograms present. Interval placement of endotracheal tube which terminates in the right mainstem bronchus. Recommend retracting 8 cm. Right chest unremarkable appearing. IMPRESSION: * Complete opacification of the left lung with endotracheal tube tube terminating in the right mainstem bronchus. Recommend retracting 8 cm. Approved by Resident Tanner Licea DO on 10/19/2023 3:01 AM I, Sonya Olson MD have personally reviewed the image(s) and agree with and/or edited the report Finalized by Sonya Olson MD on 10/19/2023 3:11 AM X-ray chest 1 view Result Date: 10/17/2023 Procedure: Chest x-ray performed Number of views:AP portable History:Transient alteration of awareness Comparison:10/05/2023 Findings: The heart and lungs show no acute findings, and the mediastinum and bobby are grossly negative . Impression: No acute change. Finalized by Harris Wilde DO on 10/17/2023 5:08 PM X-ray chest 1 view Result Date: 10/05/2023 XR CHEST 1 VW HISTORY: Congestive heart failure, shortness of breath COMPARISON: 09/30/2023 FINDINGS: AP upright film obtained. Interval removal of right-sided central venous catheter. The cardiomediastinal silhouette is prominent and unchanged. No significant pulmonary vascular congestion.. No pleural effusion or pneumothorax. No consolidation. Degenerative changes in the AC joints bilaterally. Lower thoracic spondylosis with bony spurring. IMPRESSION: * Improved pulmonary vascular congestion with no radiographic evidence of acute cardiopulmonary process. * Interval removal of right IJ central line. Approved by Resident: Judson Pompa DO on 10/05/2023 8:38 AM Vida Lang MD have personally reviewed the image(s) and agree with and/or edited the report Finalized by Vida Jiménez MD on 10/05/2023 8:44 AM X-ray chest 1 view Result Date: 09/30/2023 XR CHEST 1 VW HISTORY: CHF and pulmonary congestion. Follow-up exam COMPARISON: Prior study from the day before. FINDINGS: AP portable upright view of the chest The trachea is midline. Cardiomediastinal contour is mildly enlarged with bilateral hilar congestion. Left retrocardiac consolidation. No pleural effusion or pneumothorax. No change in right IJ central line with the tip in the SVC. IMPRESSION: * Low lung volumes and decompensated CHF similar to prior study. Finalized by Vida Jiménez MD on 09/30/2023 8:05 AM X-ray chest 1 view Result Date: 09/29/2023 Clinical History: Congestion. Portable Upright chest: 09/29/2023 Comparison: 09/28/2023 Findings: A single portable view of the chest was obtained. Right IJ catheter remains in the mid SVC region. There is cardiac prominence with vascular distention centrally and indistinct vascular margins. Confluent basilar opacities persist with no definite change. There is no pneumothorax. Pleural effusions are likely bilaterally IMPRESSION: Persistent vascular congestion with grossly stable basilar infiltrates and probable pleural effusions. Finalized by Jamaal Cormier MD on 09/29/2023 8:09 AM X-ray chest 1 view Result Date: 09/28/2023 Clinical History: Congestion. Edema. Portable Upright chest: 09/28/2023 Comparison: 09/27/2023 Findings: A single portable view of the chest was obtained. Right IJ catheter is in mid trachea. Cardiac silhouette is prominent with stable mediastinal contours. This vascular distention and indistinct appearance centrally with persistent perihilar and basilar infiltrates. No pneumothorax or large pleural effusion is present. IMPRESSION: Vascular congestion with persistent basilar infiltrates and pleural effusions. Finalized by Jamaal Cormier MD on 09/28/2023 7:29 AM X-ray chest 1 view Result Date: 09/27/2023 Single view chest History:sob Difficulty breathing, shortness of breath Comparison: 09/22/2023 Findings: Single portable view of the chest. Stable cardia mediastinal silhouette. Right jugular catheter stable. Mild vascular congestion and edema and small pleural effusions, stable. Impression: No significant interval change. Finalized by Krystal Anderson MD on 09/27/2023 10:45 AM PHYSICAL EXAM Admission Weight: Weight: 90.3 kg (199 lb 1.2 oz) I/O last 3 completed shifts: In: 2458.1 [I.V.:1718.3; IV Piggyback:739.9] Out: 1610 [Urine:1500; Stool:110] Weight change: 5.8 kg (12 lb 12.6 oz) Wt Readings from Last 3 Encounters: 12/24/23 96.1 kg (211 lb 13.8 oz) 12/19/23 90.3 kg (199 lb 1.2 oz) 12/03/23 90.3 kg (199 lb 1.2 oz) Vitals: Vitals: 12/24/23 0400 12/24/23 0416 12/24/23 0807 12/24/23 0808 BP: 109/72 109/72 Pulse: 78 94 96 Resp: 20 Temp: 36.3 C (97.4 F) TempSrc: Oral SpO2: 98% 99% Weight: 96.1 kg (211 lb 13.8 oz) Height: Admit Weight Weight: 90.3 kg (199 lb 1.2 oz) Last 3 Weights Last 3 Weight Readings 12/22/23 1208 12/23/23 0425 12/24/23 0416 Weight: 90.3 kg (199 lb 1.2 oz) 92.1 kg (203 lb 0.7 oz) 96.1 kg (211 lb 13.8 oz) Body mass index is 36.37 kg/m . INTAKE/OUTPUT I/O last 3 completed shifts: In: 2458.1 [I.V.:1718.3; IV Piggyback:739.9] Out: 1610 [Urine:1500; Stool:110] Intake/Output Summary (Last 24 hours) at 12/24/2023 0904 Last data filed at 12/24/2023 0500 Gross per 24 hour Intake 1244.95 ml Output 1060 ml Net 184.95 ml General appearance: Alert oriented Eyes: Conjunctivae unremarkable, EOM's intact, sclera non icteric Neck: No JVD, no carotid bruit, neck supple, trachea midline Lungs: Clear to ausculation bilaterally, no use of accessory muscles Heart:: Irregularly irregular with normal S1 and S2, no murmurs and no gallops. Abdomen: Soft, non-tender, bowel sounds normal. Extremities: Mild bilateral pitting edema Neurologic: Moving all extremities. 68 year female with past medical history of diabetes, essential hypertension, mixed hyperlipidemia, atrial fibrillation/flutter s/p ablation 2020, heart failure with reduced ejection fraction, atherosclerotic heart disease (2020 angiogram showed moderate disease in LAD, RCA and LCX, medical management), nonrheumatic mitral and tricuspid valve regurgitation, osteomyelitis. Patient was discharged to facility, during MRI found to have hypotension and atrial fibrillation with RVR. Chronic hypotension. -persistent atrial fibrillation with RVR: [id number] score at least 5. Not on anticoagulation therapy due to recent admission for rectal bleeding. No recurrence of bleeding. -elevated cardiac troponin: Patient having chest pain in the setting of RVR, diffuse mild ST segment depression which does not appear to be new. Patient has moderate triple-vessel disease on angiogram in 2020. Troponin peaked at 0.58, down trended. -severely elevated D-dimer: No reported large pulmonary embolism. No DVT. 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 -atherosclerotic heart disease of [place] arteries without angina: Moderate disease 01/2021. -chronic hypotension and on midodrine. Prior history of hypertension. -history of typical atrial flutter: S/p ablation 02/2022. -questionable sepsis: -mixed hyperlipidemia: -type 2 diabetes: -CKD: Previously patient required dialysis. -history of colorectal cancer s/p small bowel resection with colostomy: -history of sacral ulcers: Recommendations: Yesterday patient received digoxin, started small dose metoprolol. Heart rate better controlled. Short AV pauses. No more digoxin, will increase metoprolol to 25 mg b.i.d. Sepsis management as per primary team. Continue heparin gtt. Troponin peaked at 0.58, down trended. Chest pain resolved with better heart rate control. Will need coronary angiogram, probably before discharge. Very challenging situation, anemia and CKD, not sure if patient will be able to tolerate triple therapy if she requires PCI. For now asymptomatic, will continue to monitor. Thanks for the consult, will follow the patient. MAEGAN SINHA MD This note was completed using a voice workforce management manager system. Every effort was made to ensure accuracy. However, inadvertent computerized workforce management manager errors may be present. Images from the original note were not included. Rapid Response Event Note Patient: Harris Castrejon : 1955 Age: 68 y.o. Length of Stay: 1 days Admission Diagnosis: Atrial fibrillation with RVR ([facility] [place] [facility]) [I48.91] Abnormal heart rate [R00.9] Chronic wound infection of abdomen, initial encounter [S31.109A, L08.9] Septic shock ([facility]) [A41.9, R65.21] Pneumonia of right upper lobe due to infectious organism [J18.9] Elevated troponin [R79.89] Tachycardia [R00.0] SITUATION Time of Call: 1511 Arrival Time: 1514 Rapid Response called due to Pt having a-fib with rvr. BACKGROUND Past Medical History: Diagnosis Date Arrhythmia Hypertension Injury of back Disc L4 and L5 Obesity Respiratory distress 10/19/2023 Septic shock ([facility]) 12/22/2023 Systolic and diastolic CHF, acute ([facility]) 09/03/2023 Visual impairment ASSESSMENT Upon my arrival, Harris Castrejon was lying in bed, deneis chest pain but c/o shortness of breath. O2 sats high 90's, slightly tachpneic. Primary RN had contacted cards after she spoke with RN global technical writer and an order for 5mg IV metoprolol was ordered. BP support this intervention. Rn global technical writer remained at bedside while medication was given. Pts HR was down into the 90's-110's still in a-fib. Primary RN instructed to call rapid with any other questions or concerns. Pt will be placed on rapid's watchers list. RECOMMENDATIONS / PLAN / OUTCOME Monitor HR Monitor vital signs Monitor work of breathing End of Call: [phone] Thank you, Malorie Lundberg RN Rapid Response: [facility] Images from the original note were not included. IMS-3 PROGRESS NOTE Date of Service: 12/23/2023 Patient Name: Harris Castrejon : 1955 DOA: 12/22/2023 Hospital Day: 2 HPI/Hospital course: Harris Castrejon is a 68 y.o. female medical history of diabetes, essential hypertension, mixed hyperlipidemia, HFREF 40-45% nov 23, atrial fibrillation/flutter s/p ablation 2020,, atherosclerotic heart disease (2020 angiogram showed moderate disease in LAD, RCA and LCX, medical management), nonrheumatic mitral and tricuspid valve regurgitation, CKD 4, stage IV pressure ulcer sacrum complicated by osteomyelitis s/p debridement 10/23, severe esophagitis, , rectal cancer currently undergoing staging, recent admission to ICU in October of 2023 in which had ex lap with small-bowel resection and colostomy wound VAC due to GI bleed and hemodialysis. Was recently on TPN through picc line just transitioned to PO feeding couple days ago. Per chart review, patient presented to emergency department after being tachycardic 160s, feeling of unwell while getting MRI today to evaluate her rectal cancer. Upon arrival to ED, patient afebrile tachycardic heart rate in the 150s, respiratory rate between 20-30, blood pressure soft 85/73 satting well on 4 L nasal cannula baseline 0. Initial lab work significant for white blood cell count of 15.9, hemoglobin 8.1 baseline 8-9, glucose 42, creatinine 1.48 baseline 1.2, alk phos 313, Blood glucose 43 , lactate 1.0. Chest x-ray revealed cardiomegaly and vascular congestion. CT abdomen and pelvis revealed distended gallbladder with periportal edema and evidence of large sacral soft tissue ulcer unable to exclude osteomyelitis nonspecific thickening of rectal canal. CT chest revealed new focal opacity in left lung apex along with increase in mediastinal nodes which could represent reactive versus metastatic process. Patient was started on vanc, cefepime for empiric antibiotic therapy. Was treated with 30 cc/kg fluid resuscitation due to presumed sepsis. Was given 50% dextrose due to hypoglycemia. Digoxin ordered due to concern AFib RVR. Cardiology consulted. General surgery consulted regarding potential cholecystectomy upon stabilization INTERVAL EVENTS Right upper quadrant ultrasound performed which ultimately was reassuring against acute cholecystitis. Patient was started on cardiology based heparin infusion due to concern AFib RVR. Overnight, patient developed worsening troponinemia. 0.58 currently still up trending. EKG taken which revealed diffuse ST depression which does not appear to be new finding for her. Duplex ultrasound lower extremity ordered due to concern for potential thrombotic process given markedly elevated D-dimer. Pulmonology team consulted to evaluate patient for possible EBUS given enlarging mediastinal lymphadenopathy, new lesion on CT scan in presence of previously diagnosed rectal cancer undergoing staging. SUBJECTIVE Patient was seen and examined at bedside this morning. She is awake alert oriented at this time. She complains of chest pain substernal in nature. Has been ongoing for 2 weeks now 5 to 03/09. The pain is sharp and constant. Nothing seems to make it better or worse. It does not radiate to her arm or jaw. Patient complains of some headache and dizziness. She denies nausea, vomiting, fever, chills. Does endorse continuation of abdominal pain which appears to be worse on right side. She is unable to clarify whether the pain changes with oral intake. OBJECTIVE Vitals: Temp: [36.4 C (97.6 F)-36.8 C (98.2 F)] 36.7 C (98.1 F) Pulse: [102-161] 106 Resp: [16-32] 26 BP: (85-137)/(44-81) 137/76 SpO2: [95 %-100 %] 100 % O2 Device: Nasal cannula O2 Flow Rate (L/min): [2 L/min-3 L/min] 2.5 L/min Weight: Admission weight: 90.3 kg (199 lb 1.2 oz) Last 3 Weight Readings 12/22/23 1208 12/23/23 0425 Weight: 90.3 kg (199 lb 1.2 oz) 92.1 kg (203 lb 0.7 oz) Input/Output: Intake/Output Summary (Last 24 hours) at 12/23/2023 1119 Last data filed at 12/23/2023 0844 Gross per 24 hour Intake 1213.19 ml Output 1000 ml Net 213.19 ml Net IO Since Admission: 213.19 mL [12/23/23 1119] Physical Exam: General appearance: Alert, oriented, very well-developed. HEENT: atraumatic, EOM intact, sclera anicteric, no erythema/exudate Neck: supple, without lymphadenopathy Lungs: Lungs clear to auscultation bilaterally. Saturating well on 2 L nasal cannula. Heart: Tachycardic, irregular regular. Unable to appreciate any obvious murmur Abdomen: Abdomen is soft. It is tender to palpation in right upper quadrant. Surgical wound in place, photos in media. Patient also has colostomy in place which appears to be functioning well. Bowel is well-perfused, pink. Stool output is not overly dark or black. Extremities: Scaly lower extremities. Unable to appreciate significant lower extremity edema at this time. Stage IV pressure ulcer of sacrum in place. See media for pictures. Neurologic: no focal motor or sensory deficits noted Psychiatric: appropriate affect Labs Results from last 7 days Lab Units 12/23/23 0945 12/23/23 0326 12/22/23 1234 WBC X10E9/L -- 13.9* 15.9* HEMOGLOBIN g/dL 7.3* 8.2* 8.1* HEMATOCRIT % 22.5* 25.4* 24.3* PLATELETS X10E9/L -- 176 197 Results from last 7 days Lab Units 12/22/23 1958 APTT sec >150* INR 1.2* Results from last 7 days Lab Units 12/23/23 0326 12/22/23 1242 12/22/23 1234 SODIUM mmol/L 142 -- 142 POTASSIUM mmol/L 4.5 -- 4.5 CHLORIDE mmol/L 111* -- 105 CO2 mmol/L 22 -- 24 BUN mg/dL 25 -- 32* CREATININE mg/dL 1.17* -- 1.38* POC CREATININE mg/dL -- 1.4* -- CALCIUM mg/dL 7.1* -- 7.8* MAGNESIUM mg/dL 1.9 -- 1.9 Results from last 7 days Lab Units 12/23/23 0326 12/22/23 1234 ALBUMIN g/dL 2.3* 2.6* TOTAL PROTEIN g/dL 6.2 6.5 ALT U/L 23 28 AST U/L 33 36 ALK PHOS U/L 261* -- Results from last 7 days Lab Units 12/23/23 0957 12/23/23 0423 12/23/23 0326 BEDSIDE GLUCOSE mg/dL 98 79 -- GLUCOSE mg/dL -- -- 79 Lab Results Component Value Date HGBA1C 6.8 (H) 12/22/2023 Results from last 7 days Lab Units 12/23/23 0326 12/22/23 1958 12/22/23 1841 12/22/23 1234 TROPONIN I ng/mL 0.58* -- -- 0.04 BNP pg/mL -- -- 828* -- D DIMER ng/mL DDU -- 7,716* -- -- Results from last 7 days Lab Units 12/22/23 1234 LIPASE U/L 135* Results from last 7 days Lab Units 12/22/23 1234 FERRITIN ng/mL 211 Lab Results Component Value Date WBCU 40 (H) 12/22/2023 SPECIFICGRA 1.020 12/22/2023 LEUKOCYTE Trace (A) 12/22/2023 NITRITEN Negative 12/22/2023 PHNUR 7.0 12/22/2023 PROTEINNUR 100 (A) 12/22/2023 KETONESNUR Negative 12/22/2023 UROBILINOGEN 1.0 12/22/2023 BLOODHGBNU Negative 12/22/2023 Imaging Ultrasound abdomen limited Result Date: 12/22/2023 US ABDOMEN LMTD HISTORY: Cholecystitis COMPARISON: CT abdomen and pelvis today PROCEDURE: Real-time grayscale ultrasound and limited color flow performed. FINDINGS: Liver demonstrate normal echogenicity. No discrete masses visualized. MPV demonstrates low velocity flow of 11.3 cm/s. Common bile duct is nondilated, measuring 4 mm. Gallbladder wall thickness is within normal limits. The gallbladder is diffusely distended with layering internal debris, sludge. No shadowing echogenic foci. Negative sonographic Andre's sign. The visualized portions of the pancreas are within normal limits. Trace fluid seen adjacent to the right hepatic lobe. IMPRESSION: * Gallbladder distention with internal debris/sludge. No gallbladder wall thickening to suggest acute cholecystitis. Finalized by Gracie Ontiveros MD on 12/22/2023 6:[address] chest with contrast Result Date: 12/22/2023 CLINICAL STATEMENT: Colon cancer, assess response to treatment, sepsis COMPARISON: 11/07/2023 TECHNIQUE: Axial views were obtained from the lung apices to the lung bases following the uneventful administration of 100 mL IV contrast. Coronal and sagittal MPR reconstructions were performed. FINDINGS: The visualized portion of the thyroid gland is stable, possible underlying small cysts or nodules. Interval resolution of the bilateral small pleural effusions. There is now residual posterior dependent atelectatic changes. Atelectasis versus groundglass opacity of the left lung apex (image 21 of 87) which measures up to 1.4 cm in diameter. No new solid pulmonary nodules. Precarinal mediastinal lymph node measures 11 x 12 mm, previously 8 x 9 mm. The ascending aorta, the aortic arch, and the descending aorta show demonstrate no aneurysmal dilatation. Moderate calcifications of the aortic arch. Normal three-vessel branching pattern. The pulmonary arteries show no large proximal filling defects. Pulmonary arteries are not enlarged. The heart is normal in size and morphology. Multivessel severe coronary artery calcifications. SVC appears normal. The esophagus, the trachea, and the main bronchi show no definite abnormality. Abdominal findings discussed on CT abd pelvis performed concurrently. IMPRESSION: * There is a new focal opacity of the left lung apex pleural. This may represent focal infectious or atelectatic infiltrate though developing groundglass or solid nodule cannot be excluded. Recommend 3 month follow-up. * Slight increased size of a precarinal mediastinal node which measures 12 mm, previously 9 mm. Change in size could be reactive or metastatic, continued follow-up recommended. * No new solid pulmonary nodes. * Resolution of previous bilateral effusions. * Stable cardiomegaly and multivessel coronary artery calcifications. Finalized by Gracie Ontiveros MD on 12/22/2023 3:[address] abdomen and pelvis with contrast Result Date: 12/22/2023 CLINICAL INFORMATION: Sepsis; Metastatic disease evaluation; Colon cancer, staging; hx colon ca, tachy, hypotensive, abdominal wall wound with sri pus. COMPARISON: 11/07/2023 TECHNIQUE: CT of the abdomen and pelvis with intravenous contrast. FINDINGS: LOWER CHEST: Interpreted separately. LIVER AND BILIARY: Distended gallbladder with periportal edema. No suspicious focal liver lesion. PANCREAS: Within normal limits. SPLEEN: Within normal limits. ADRENALS: Within normal limits. KIDNEYS, URETERS, AND BLADDER: Symmetric enhancement. No suspicious lesion or hydronephrosis. Bladder gas with indwelling Dasilva catheter. GI TRACT AND PERITONEUM: Prior heart and stomach. Left lower quadrant colostomy. No postoperative obstruction. Thickened rectum/anal canal. Presumed endoscopy clips in the cecum; correlate with any recent intervention. Prior small bowel resection the right lower quadrant. Nonvisualized appendix. No free air. Small volume free fluid VASCULATURE: Normal caliber aorta. Advanced atherosclerosis of the SMA, poorly characterize given technique. LYMPH NODES: Within normal limits. REPRODUCTIVE ORGANS: No asymmetry. MUSCULOSKELETAL: Soft tissue defect over the sacrum, approximately 2 cm with skin thickening and inflammation, likely extending to the sacrum. Osteopenia. No acute osseous abnormality. IMPRESSION: 1. Distended gallbladder with periportal edema. Correlate with LFTs/right upper quadrant pain. Consider ultrasound follow-up. 2. Large sacral decubitus soft tissue ulcer. Underlying osteomyelitis not excluded. 3. Nonspecific thickening of the rectum/anal canal. 4. Additional findings as above All CT scans at this facility use dose modulation, iterative reconstruction, and/or weight based dosing when appropriate to reduce radiation dose to as low as reasonably achievable. Finalized by Krystal Crowley MD on 12/22/2023 3:01 PM X-ray chest 1 view Result Date: 12/22/2023 Portable chest: HISTORY: Cough and sepsis. Single view the chest was obtained. Cardiac silhouette is enlarged but unchanged. Pulmonary vasculature is congested. No pneumothorax seen. Central line tip in the region of the SVC. IMPRESSION: Cardiomegaly and vascular congestion. Finalized by Ray Vo MD on 12/22/2023 1:52 PM MR abdomen without contrast Result Date: 12/22/2023 History: Rectal cancer. Metastatic survey. Exam/Technique: Multiplanar, multisequence MR imaging is obtained of the abdomen without intravenous contrast. The patient was unable to tolerate the full extent of the examination and an appreviated protocol was obtained. Comparison: CT abdomen 11/07/2019 Findings: Gallbladder is moderately distended with dependent sludge possible small stones. This is exerting some mass effect on the common bile duct or no ductal dilatation demonstrated. Pancreas and pancreatic duct appear to be within normal limits. No acute liver, spleen or adrenal pathology demonstrated. Kidneys show no evidence hydronephrosis. Left lower quadrant ostomy partially visualized without gross complication. IMPRESSION: * Abbreviated MRI due to patient claustrophobia. * Moderate gallbladder distention with sludge and potentially small stones. No acute findings otherwise. Finalized by Jamie Lester DO on 12/22/2023 12:53 PM Cultures Microbiology Results Procedure Component Value Units Date/Time Urine culture [[id number]] Collected: 12/22/23 1329 Specimen: Urine Updated: 12/22/23 1523 Wound culture superficial includes gram stain [[id number]] (Abnormal) Collected: 12/22/23 1231 Specimen: Wound Swab Updated: 12/23/23 0928 Gram Stain Result >25 WHITE BLOOD CELLS/LPF 10 to 24 SQUAMOUS EPITHELIAL CELLS/LPF RARE GRAM POSITIVE COCCI IN CLUSTERS INTRACELLULAR EXTRACELLULAR RARE PLEOMORPHIC GRAM POSITIVE RODS Culture CULTURE IN PROGRESS Blood Culture [[id number]] Collected: 12/22/23 1218 Specimen: Blood Updated: 12/23/23 0103 Culture NO GROWTH <24 HRS Blood Culture [[id number]] Collected: 12/22/23 121 Specimen: Blood Updated: 12/23/23 010 Culture NO GROWTH <24 HRS Hospital Medications: Scheduled: aspirin, 81 mg, oral, Daily atorvastatin, 20 mg, oral, Nightly cefepime (MAXIPIME) IV, 2,000 mg, intravenous, Q12H digoxin, 250 mcg, intravenous, Q4H metroNIDAZOLE, 500 mg, intravenous, Q8H pantoprazole, 40 mg, oral, QAM AC vancomycin, 1,250 mg, intravenous, Q24H Infusions: dextrose 5 % in water, 100 mL/hr D5 % and 0.9 % sodium chloride, 75 mL/hr, Last Rate: 75 mL/hr (12/23/23 0844) heparin, 300-3,500 Units/hr, Last Rate: 1,000 Units/hr (12/23/23 1102) sodium chloride 0.9 %, 20 mL/hr As Needed: acetaminophen dextrose dextrose 5 % in water dextrose 50 % in water (D50W) glucagon (human recombinant) heparin (porcine) iohexoL magnesium sulfate magnesium sulfate ondansetron potassium chloride OR potassium chloride sodium chloride sodium chloride sodium chloride 0.9 % sodium chloride Allergies: Allergies Allergen Reactions Oats ASSESSMENT Sepsis, multiple sources- stage 4 pressure ulcer, vs malignancy, vs picc LUE previously for TPN, vs surgical wounds, vs likely acute dirk, previously treated for Enterococcus UTI immediately prior to admission- improving Afeb HS. BP stabilized. WBC downtrending. BCX NGTD Wound cx few ecoli, rare pleomorphic GNR A fib RVR, likely secondary to recent infection- improving. Hypoglycemia, likely sepsis induced -improved with dextrose Elevated troponin level peak 0.58, likely demand related secondary to sepsis, afib rvr, downtrending. Severely elevated [id number] secondary to infection, malignancy. CT chest with contrast did not reveal large pulmonary embolism Altered mental status- likely secondary to current infection- resolved Hypoxemic respiratory failure possibly secondary to aspiration PNA- improving. NC down to 2L NC from 4 Borderline Acute on chronic kidney injury CKD4, Cr 1.38 from baseline 1.2 - likely secondary to pre-renal vs sepsis induced ATN, resolved Hx prior intermittent HDS last admission Normocytic anemia decreased to 7.3 from 8 yesterday following heparin infusion- possibly secondary to ample fluid resuscitation. No overt sign of bleed. Seeing drop across x3 cell lines on CBC. Interval enlargement of mediastinal lymph nodes, ground glass opacification in L Lung apex concerning for metastasis Hx colorectal cancer s/p exlab small bowel resectoin with colostomy History of enterococcus faecalis, bacteroides osteomyelitis sacrum Stage 4 pressure ulcer sacrum T2DM A1c 6.3 Mixed hyperlipidemia PLAN Continue empiric vanc, cefepime, flagyl empiric abx pending further cx results. Digoxin 250 every 4 hours for AFib RVR. Avoid metoprolol and AV blocking agents given borderline blood pressures. Continue cardiology heparin infusion given AFib RVR, high-risk thrombotic state Trend H&H q.8 hours while on heparin infusion given history of prior bleed last admission. Follow up results of lower extremity duplex given markedly elevated D-dimer Continue rehydration with D5 NS given prior blood pressures, sepsis, hypoglycemic episodes yesterday while NPO We will defer to General surgery whether patient is to benefit from HIDA scan Start aspirin, Lipitor for PAD, CAD, mixed hyperlipidemia Pulmonology consult regarding possible EBUS given mediastinal lymphadenopathy enlargement, hx rectal cancer undergoing staging. Low intensity sliding scale for T2DM. Wound care consulted for assistance in management of surgical wound, sacral ulcer DVT prophylaxis: heparin infusion Diet: adult regular texture Fluids: d5 ns Disposition: TBD Code Status: full Lexx Medina MD PGY-1 Internal Medicine Associated attestation - Radha Villagomez MD - 12/23/2023 1:21 PM EDT Attending Note I saw the patient, I performed/participated in the critical/greenberg portions of the service, I was directly involved in the management and treatment plan of the patient. I reviewed the resident's note and agree with the findings and plan. Images from the original note were not included. [facility] [address] [place] [address] PROGRESS NOTE Harris Akua Rutherfordick Patient complaining of left anterior chest pain, 5/10 since yesterday. Review of monitor shows atrial fibrillation with heart rate around 120 beats per minute. SUBJECTIVE Allergies: Allergies Allergen Reactions Oats CURRENT MEDICATIONS aspirin, 81 mg, oral, Daily atorvastatin, 20 mg, oral, Nightly cefepime (MAXIPIME) IV, 2,000 mg, intravenous, Q12H digoxin, 250 mcg, intravenous, Q4H metroNIDAZOLE, 500 mg, intravenous, Q8H pantoprazole, 40 mg, oral, QAM AC vancomycin, 1,250 mg, intravenous, Q24H CONTINUOUS INFUSIONS dextrose 5 % in water, 100 mL/hr D5 % and 0.9 % sodium chloride, 75 mL/hr, Last Rate: 75 mL/hr (12/23/23 0844) heparin, 300-3,500 Units/hr, Last Rate: Stopped (12/22/232105) sodium chloride 0.9 %, 20 mL/hr Review of Systems: Cardiovascular: No chest pain, dyspnea on exertion, palpitations or loss of consciousness. No cough, hemoptysis, pleuritic pain, or phlebitis. Respiratory: No cough or wheezing, no sputum production, no hematemesis. Neurological: No headache, diplopia, change in muscle strength, numbness or tingling. No change in gait, balance, coordination, mood, affect, memory, mentation, behavior. Hematologic/Lymphatic: No abnormal bruising or bleeding, blood clots or swollen lymph nodes. OBJECTIVE CBC: Results from last 7 days Lab Units 12/23/23 0326 12/22/23 1234 WBC X10E9/L 13.9* 15.9* HEMOGLOBIN g/dL 8.2* 8.1* HEMATOCRIT % 25.4* 24.3* MCV fL 90 88 PLATELETS X10E9/L 176 197 BMP: Results from last 7 days Lab Units 12/23/23 0326 12/22/23 1242 12/22/23 1234 SODIUM mmol/L 142 -- 142 POTASSIUM mmol/L 4.5 -- 4.5 CHLORIDE mmol/L 111* -- 105 CO2 mmol/L 22 -- 24 BUN mg/dL 25 -- 32* CREATININE mg/dL 1.17* -- 1.38* POC CREATININE mg/dL -- 1.4* -- CALCIUM mg/dL 7.1* -- 7.8* MAGNESIUM mg/dL 1.9 -- 1.9 PT/INR: Results from last 7 days Lab Units 12/22/231957 PROTIME sec 13.8* INR 1.2* APTT: MAG: Results from last 7 days Lab Units 12/23/23 0326 12/22/23 1234 MAGNESIUM mg/dL 1.9 1.9 D Dimer: Results from last 7 days Lab Units 12/22/231957 D DIMER ng/mL DDU 7,716* Troponin I Results from last 7 days Lab Units 12/23/23 0326 12/22/23 1234 TROPONIN I ng/mL 0.58* 0.04 ProBNP Results from last 7 days Lab Units 12/22/23 1841 BNP pg/mL 828* Lipid Panel: Lab Results Component Value Date CHOL 127 (L) 09/13/2021 TRIG 198 (H) 11/25/2023 HDL 38 (L) 09/13/2021 Liver Panel: No results found for: ALB HgA1C: Lab Results Component Value Date HGBA1C 6.8 (H) 12/22/2023 ABG: Lab Results Component Value Date pH 7.488 (H) 11/18/2023 PCO2 29.4 (L) 11/18/2023 PO2 128 (H) 11/18/2023 Base,Excess 1.0 10/29/2023 Base,Deficit 1.0 11/18/2023 Portable HCO3 22.2 11/18/2023 SPO2 97 11/18/2023 CV TESTING HISTORY: ECHO: Echo limited W/ contrast Result Date: 11/07/2023 Left Ventricle: Systolic function is mildly to moderately decreased with an ejection fraction of 40-45%. Mitral Valve: There is mild regurgitation. Tricuspid Valve: There is mild regurgitation. Pericardium: There is no pericardial effusion. There is a left pleural effusion. Echo complete W/O contrast Result Date: 10/21/2023 Left Ventricle: Systolic function is normal with an ejection fraction of 55-60%. Poor image quality study with very poor endocardial definition. Normal left ventricular size with probably mild concentric left ventricular hypertrophy. Grossly normal left ventricular systolic function. No significantly abnormal stenotic or regurgitant flows are identified Echo complete W/ contrast Result Date: 09/04/2023 Left Ventricle: There is mild concentric increased wall thickness/hypertrophy. Systolic function is mildly to moderately decreased with an ejection fraction of 40-45%. Mitral Valve: There is mild to moderate regurgitation with a centrally directed and a posteriorly directed jet. There is no evidence of mitral valve stenosis. Tricuspid Valve: There is moderate regurgitation. The tricuspid valve regurgitation jet is eccentric. There is no evidence of tricuspid valve stenosis. STRESS: No results found. HOLTER: No results found. CARDIAC CATH: No results found. CAROTID: No results found. CXR: X-ray chest 1 view Result Date: 12/22/2023 Portable chest: HISTORY: Cough and sepsis. Single view the chest was obtained. Cardiac silhouette is enlarged but unchanged. Pulmonary vasculature is congested. No pneumothorax seen. Central line tip in the region of the SVC. IMPRESSION: Cardiomegaly and vascular congestion. Finalized by Ray Vo MD on 12/22/2023 1:52 PM X-ray chest 1 view Result Date: 11/30/2023 HISTORY: A 68-year-old female with the history of the PICC line placement. TECHNIQUE: Portable semierect AP view of chest: One view COMPARISON: Comparison is made with the chest radiograph of the 11/29/2023. FINDINGS: Examination is compromised due to poor inspiratory effort and patient's body habitus. There has been interval replacement of the PICC line through the left upper extremity approach with its tip at the junction of the superior vena cava and right atrium. There is minimal atelectasis in the right midlung field. There is a mild vascular congestion. No pneumothorax is identified. Costophrenic angles are clear. Heart is enlarged. There are aortic calcifications. Trachea is in midline. Hemidiaphragms are normal in position. IMPRESSION: * PICC line through the left upper extremity approach with its tip at the junction of the superior vena cava and right atrium. * No evidence of pneumothorax. * Mild vascular congestion and minimal right midlung field atelectasis. Finalized by Edvin Weinberg MD on 11/30/2023 4:13 PM X-ray chest 1 view Result Date: 11/29/2023 XR CHEST 1 VW HISTORY: Shortness of breath COMPARISON: Chest radiograph 11/21/2023 and 11/20/2023 TECHNIQUE: AP portable upright view. obtained. FINDINGS: Right-sided PICC line with tip overlying expected location of the SVC. Stable enlarged heart size. Mild bronchovascular crowding and interstitial edema. Bibasilar atelectasis. No focal consolidation. No pneumothorax or large pleural effusion. IMPRESSION: * Mild vascular congestion and interstitial edema. * Bibasilar atelectasis without focal consolidation. Approved by Resident Sonya Wright MD on 11/29/2023 5:33 PM I, Krystal Anderson MD have personally reviewed the image(s) and agree with and/or edited the report Finalized by Krystal Anderson MD on 11/29/2023 5:43 PM X-ray chest 1 view Result Date: 11/21/2023 Clinical history: Congestion, pleural effusions. Comparisons: 11/17/2023 through 11/20/2023. Findings: AP portable upright chest radiograph obtained 6:17 AM. Heart size remains enlarged. Pulmonary vasculature is mildly increased was venous redistribution to the upper lungs. There is hypoventilation with low lung volumes and crowding of bronchovascular markings in both lung bases. No focal pulmonary parenchymal consolidation. No large pleural effusion. Right-sided PICC again noted with tip at expected location of SVC. Left-sided PICC tip terminates at the expected location of the right atrium. IMPRESSION: 1. Persistent congestive changes yet interval improvement in atelectasis and consolidation in both lungs. Finalized by Mendoza Corbett MD on 11/21/2023 8:59 AM X-ray chest 1 view Result Date: 11/20/2023 Single view chest History:hypoxia Difficulty breathing, shortness of breath Comparison: 11/18/2023 Findings: Single portable view of the chest. Stable cardia mediastinal silhouette. Stable left PICC. There is mild vascular congestion with small pleural effusions and lower lung atelectasis. Impression: No significant interval change. Finalized by Krystal Anderson MD on 11/20/2023 8:35 AM X-ray chest 1 view Result Date: 11/18/2023 CHEST SINGLE AP VIEW 11/18/2023 12:03 PM CLINICAL INDICATION: picc placement COMPARISON: Chest one view 11/18/2023 IMPRESSION: 1. Right-sided PICC is grossly stable. Right PICC tip is obscured. Interval placement of left-sided PICC. Left PICC tip is obscured but extends at least to the cavoatrial junction. 2. Similar enlarged cardiac silhouette with pulmonary vascular congestion and interstitial edema. Similar small right pleural effusion with right basilar atelectasis or airspace disease. Finalized by Donnie Rojas MD on 11/18/2023 12:08 PM X-ray chest 1 view Result Date: 11/18/2023 Procedure: Chest x-ray performed Number of views:AP portable upright History:Shortness of breath Comparison:11/17/2023 Findings: The heart and lungs show no acute findings, and the mediastinum and bobby are grossly negative . Impression: No significant interval change Finalized by Harris Wilde DO on 11/18/2023 11:11 AM X-ray chest 1 view Result Date: 11/17/2023 Single view chest History:dyspnea Difficulty breathing, shortness of breath Comparison: 11/11/2023 Findings: Single portable view of the chest. Removal of the endotracheal tube and enteric catheter. Right PICC tip in SVC. Regular catheter is been removed. There is small pleural effusions with bilateral lower lung atelectasis or pneumonia and/or mild vascular congestion. Impression: Bilateral pleural effusions and bilateral lower lung atelectasis versus pneumonia and mild vascular congestion. Finalized by Krystal Anderson MD on 11/17/2023 5:23 PM X-ray chest 1 view Result Date: 11/11/2023 HISTORY: Intubated. Shortness of breath. COMPARISON: 11/10/2023. TECHNIQUE: Single portable AP view of the chest. FINDINGS: The ETT terminates 5.0 cm above the kathleen. The enteric tube courses below the diaphragm and out of the [id number]. Stable position of the right PICC in right central venous catheter. The trachea is midline. Stable cardiomegaly. Improving pulmonary vascular congestion and bibasilar opacities. Probable residual retrocardiac opacities. No pneumothorax. IMPRESSION: * Improving pulmonary vascular congestion and pleural effusions. * Persistent retrocardiac opacity, likely residual small pleural effusion or atelectasis. Approved by Resident Luly Kim MD on 11/11/2023 4:46 AM I, Krystal Anderson MD have personally reviewed the image(s) and agree with and/or edited the report Finalized by Krystal Anderson MD on 11/11/2023 4:54 AM X-ray chest 1 view Result Date: 11/10/2023 XR CHEST 1 VW CLINICAL HISTORY: Hypoxia COMPARISON: 11/09/2023 1 view obtained. FINDINGS: Endotracheal tube unchanged. Right IJ line unchanged. Right PICC line unchanged. Stable but severe cardiomegaly Pulmonary venous congestion increased since previous exam Increasing right pleural effusion and right lower lobe airspace density likely atelectasis. small left pleural effusion and left lower lobe atelectasis unchanged. Some interstitial edema in the perihilar regions and in the right lung increased IMPRESSION: * Findings most likely representing congestive heart failure with progression since previous examination Finalized by Neymar Yang MD on 11/10/2023 6:03 AM X-ray chest 1 view Result Date: 11/09/2023 CLINICAL INFORMATION: Respiratory failure on ventilator support COMPARISON: Chest radiograph dated 11/08/2023. VIEWS: 1. FINDINGS: Tip of endotracheal tube is 2.6 cm above the kathleen. Nasogastric tube has tip in the stomach. Right internal jugular central line has tip in proximal superior vena cava. Right PICC line has tip in superior vena cava. Low lung volumes. No interval change of moderate bilateral pleural effusions and bibasilar opacities. Moderate cardiomegaly. No pneumothorax. No free air below the diaphragm. IMPRESSION: No interval change of moderate bilateral pleural effusions and bibasilar opacities. Finalized by Lily Lorenzo MD on 11/09/2023 7:21 AM X-ray chest 1 view Result Date: 11/08/2023 History: Intubated. Reassessing Exam/Technique: Portable upright AP chest Comparison: Yesterday Findings: Endotracheal and enteric tubes and right jugular central line all unchanged with the tip of the endotracheal tube approximately 1.5 cm above the kathleen. With a suboptimal degree of inspiration no interval change is demonstrated with no new acute pulmonary or pleural abnormalities. Cardiomegaly appears grossly unchanged with magnification on this AP view. IMPRESSION: No interval change displayed from yesterday Finalized by Magdi Lyn MD on 11/08/2023 8:38 AM X-ray chest 1 view Result Date: 11/07/2023 CHEST 1 VIEW HISTORY: ET tube placement, NG placement, question free air COMPARISON: 11/06/2023 FINDINGS: ET tube with tip 3.5 cm above kathleen. Right PICC and right IJ central venous catheter is in place. Gastric drainage tube extends into the stomach. Mild bibasilar opacities, likely atelectasis. Probable small layering pleural effusions. No pneumothorax. No free intraperitoneal air identified on this single image. IMPRESSION: * Well-positioned lines and tubes. * Small layering pleural effusions with adjacent bibasilar opacities, likely atelectasis. * No free intraperitoneal air identified on this single image. Finalized by Vincent Pruett MD on 11/07/2023 12:15 PM X-ray chest 1 view Result Date: 11/06/2023 HISTORY: Sob. COMPARISON: 11/05/2023. TECHNIQUE: Single portable AP view of the chest. FINDINGS: Stable position of the right central venous catheter, the tip of which projects over the expected position of the proximal SVC. The trachea is midline. The cardiomediastinal silhouette is stable. Unchanged bibasilar opacities, likely representing atelectasis. No pneumothorax. IMPRESSION: * No significant interval change. Unchanged bibasilar opacities, likely representing atelectasis. Approved by Resident Luly Kim MD on 11/06/2023 5:26 AM I, Sonya Olson MD have personally reviewed the image(s) and agree with and/or edited the report Finalized by Sonya Olson MD on 11/06/2023 5:31 AM X-ray chest 1 view Result Date: 11/05/2023 HISTORY: Central line placement. COMPARISON: 10/31/2023. TECHNIQUE: Single portable AP view of the chest. FINDINGS: There has been interval placement of a right central venous catheter, the tip of which projects over the expected position of the proximal SVC. Stable position of the right PICC. The trachea is midline. The cardiomediastinal silhouette is stable. Improving bibasilar opacities. No pneumothorax. IMPRESSION: * The tip of the right central venous catheter projects over the expected position of the proximal SVC. No pneumothorax. * Improving bibasilar opacities. Approved by Resident Luly Kim MD on 11/05/2023 2:11 AM I, Sonya Olson MD have personally reviewed the image(s) and agree with and/or edited the report Finalized by Sonya Olson MD on 11/05/2023 2:17 AM X-ray chest 1 view Result Date: 10/31/2023 XR CHEST 1 VW HISTORY: Shortness of breath COMPARISON: 10/30/2023 FINDINGS: AP portable upright film obtained. Right upper extremity PICC with tip projecting near the cavoatrial junction. Unchanged, enlarged cardiac silhouette. Persistent vascular congestion and bilateral pleural effusions. No pneumothorax. Left basilar opacity, most likely atelectasis. IMPRESSION: Persistent vascular congestion and bilateral pleural effusions. Approved by Resident Snatana Gsos MD on 10/31/2023 7:40 AM I, Carol Alex MD have personally reviewed the image(s) and agree with and/or edited the report Finalized by Carol Alex MD on 10/31/2023 7:45 AM X-ray chest 1 view Result Date: 10/30/2023 History: PICC line placement EXAM: Chest AP portable upright 7:42 PM COMPARISON: 5:58 AM FINDINGS: Right upper extremity PICC line tip cavoatrial junction. NG tube in stomach. Stable cardiac silhouette. Mild vascular congestion. No pneumothorax. Basilar airspace opacities, small pleural effusions. IMPRESSION: Right PICC line tip cavoatrial junction. Otherwise, no significant change. Finalized by Reginald Da Silva MD on 10/30/2023 8:35 PM X-ray chest 1 view Result Date: 10/30/2023 Clinical history: CHF Views: 1 Comparison: 10/27/2023 Findings/Impression: 1. Heart size prominent. Vasculature is engorged increased from previous exam. 2. Pulmonary infiltrates likely due to edema/CHF but pneumonia difficult exclude appropriate clinical setting. No definite pneumothorax. Pleural effusions right side worse than left Finalized by Carol Alex MD on 10/30/2023 6:12 AM X-ray chest 1 view Result Date: 10/27/2023 CLINICAL INFORMATION: Hypoxia COMPARISON: Chest radiograph dated 10/24/2023. VIEWS: 1. FINDINGS: Tip of endotracheal tube is 5 cm above the kathleen. Nasogastric tube has tip in the stomach. Cardiac and mediastinal shadows are normal. No infiltrates. No effusions. No pneumothorax. No free air below the diaphragm. IMPRESSION: - Satisfactory positioning of endotracheal and nasogastric tubes. - No radiographic evidence for acute cardiopulmonary disease. Finalized by Lily Lorenzo MD on 10/27/2023 7:43 AM X-ray chest 1 view Result Date: 10/24/2023 Procedure: Chest x-ray performed Number of views:1 History:Shortness of breath Comparison:10/23/2023 Findings: The heart and lungs show no acute findings, and the mediastinum and bobby are grossly negative . Tubes and lines are stable. Impression: 1. No acute change. Finalized by Jose Tinoco MD on 10/24/2023 6:30 AM X-ray chest 1 view Result Date: 10/23/2023 Single view chest History:resp failure Difficulty breathing, shortness of breath Comparison: 10/20/2023 Findings: Single portable view of the chest. Stable endotracheal tube and enteric catheter. Stable cardiomediastinal silhouette. There is no focal consolidation, large effusion or pneumothorax. Impression: Stable tubes and lines. No significant interval change. Finalized by Krystal Anderson MD on 10/23/2023 6:15 AM X-ray chest 1 view Result Date: 10/20/2023 CLINICAL INFORMATION: Respiratory distress. Respiratory failure and ventilator support COMPARISON: Chest radiograph dated 10/19/2020. VIEWS: 1. FINDINGS: Tip of endotracheal tube is 4 cm above the kathleen. Nasogastric tube has tip in the stomach. Cardiac and mediastinal shadows are normal. No infiltrates. No effusions. No pneumothorax. No free air below the diaphragm. IMPRESSION: Satisfactory positioning of endotracheal and nasogastric tubes. No radiographic evidence for acute cardiopulmonary disease. Finalized by Lily Lorenzo MD on 10/20/2023 7:08 AM X-ray chest 1 view Result Date: 10/19/2023 History: Intubation Technique: A portable single frontal view the chest was obtained. Comparison: 10/19/2023 at 2:54 AM Findings: There is been improved aeration of the left lung since the previous examination. Endotracheal tube remains in place. Has retracted slightly since previous examination but continues to have its tip in the right mainstem bronchus. Retraction of approximately 4 cm is recommended. Impression: * The tip of the endotracheal tube remains in the right mainstem bronchus. Retraction by about 4 cm is recommended. * Improved aeration of the left lung since the prior study. Finalized by Sonya Olson MD on 10/19/2023 3:24 AM X-ray chest 1 view Result Date: 10/19/2023 XR CHEST 1 VW HISTORY: Shortness of breath, respiratory failure COMPARISON: Chest x-ray 10/18/2023 FINDINGS: There is complete interval opacification of the left lung with air bronchograms present. Interval placement of endotracheal tube which terminates in the right mainstem bronchus. Recommend retracting 8 cm. Right chest unremarkable appearing. IMPRESSION: * Complete opacification of the left lung with endotracheal tube tube terminating in the right mainstem bronchus. Recommend retracting 8 cm. Approved by Resident Tanner Licea DO on 10/19/2023 3:01 AM Sonya Lang MD have personally reviewed the image(s) and agree with and/or edited the report Finalized by Sonya Olson MD on 10/19/2023 3:11 AM X-ray chest 1 view Result Date: 10/17/2023 Procedure: Chest x-ray performed Number of views:AP portable History:Transient alteration of awareness Comparison:10/05/2023 Findings: The heart and lungs show no acute findings, and the mediastinum and bobby are grossly negative . Impression: No acute change. Finalized by Harris Wilde DO on 10/17/2023 5:08 PM X-ray chest 1 view Result Date: 10/05/2023 XR CHEST 1 VW HISTORY: Congestive heart failure, shortness of breath COMPARISON: 09/30/2023 FINDINGS: AP upright film obtained. Interval removal of right-sided central venous catheter. The cardiomediastinal silhouette is prominent and unchanged. No significant pulmonary vascular congestion.. No pleural effusion or pneumothorax. No consolidation. Degenerative changes in the AC joints bilaterally. Lower thoracic spondylosis with bony spurring. IMPRESSION: * Improved pulmonary vascular congestion with no radiographic evidence of acute cardiopulmonary process. * Interval removal of right IJ central line. Approved by Resident: Judson Pompa DO on 10/05/2023 8:38 AM Vida Lang MD have personally reviewed the image(s) and agree with and/or edited the report Finalized by Vida Jiménez MD on 10/05/2023 8:44 AM X-ray chest 1 view Result Date: 09/30/2023 XR CHEST 1 VW HISTORY: CHF and pulmonary congestion. Follow-up exam COMPARISON: Prior study from the day before. FINDINGS: AP portable upright view of the chest The trachea is midline. Cardiomediastinal contour is mildly enlarged with bilateral hilar congestion. Left retrocardiac consolidation. No pleural effusion or pneumothorax. No change in right IJ central line with the tip in the SVC. IMPRESSION: * Low lung volumes and decompensated CHF similar to prior study. Finalized by Vida Jiménez MD on 09/30/2023 8:05 AM X-ray chest 1 view Result Date: 09/29/2023 Clinical History: Congestion. Portable Upright chest: 09/29/2023 Comparison: 09/28/2023 Findings: A single portable view of the chest was obtained. Right IJ catheter remains in the mid SVC region. There is cardiac prominence with vascular distention centrally and indistinct vascular margins. Confluent basilar opacities persist with no definite change. There is no pneumothorax. Pleural effusions are likely bilaterally IMPRESSION: Persistent vascular congestion with grossly stable basilar infiltrates and probable pleural effusions. Finalized by Jamaal Cormier MD on 09/29/2023 8:09 AM X-ray chest 1 view Result Date: 09/28/2023 Clinical History: Congestion. Edema. Portable Upright chest: 09/28/2023 Comparison: 09/27/2023 Findings: A single portable view of the chest was obtained. Right IJ catheter is in mid trachea. Cardiac silhouette is prominent with stable mediastinal contours. This vascular distention and indistinct appearance centrally with persistent perihilar and basilar infiltrates. No pneumothorax or large pleural effusion is present. IMPRESSION: Vascular congestion with persistent basilar infiltrates and pleural effusions. Finalized by Jamaal Cormier MD on 09/28/2023 7:29 AM X-ray chest 1 view Result Date: 09/27/2023 Single view chest History:sob Difficulty breathing, shortness of breath Comparison: 09/22/2023 Findings: Single portable view of the chest. Stable cardia mediastinal silhouette. Right jugular catheter stable. Mild vascular congestion and edema and small pleural effusions, stable. Impression: No significant interval change. Finalized by Krystal Anderson MD on 09/27/2023 10:45 AM PHYSICAL EXAM Admission Weight: Weight: 90.3 kg (199 lb 1.2 oz) I/O last 3 completed shifts: In: - Out: 1000 [Urine:950; Stool:50] Weight change: Wt Readings from Last 3 Encounters: 12/23/23 92.1 kg (203 lb 0.7 oz) 12/19/23 90.3 kg (199 lb 1.2 oz) 12/03/23 90.3 kg (199 lb 1.2 oz) Vitals: Vitals: 12/23/23 0018 12/23/23 0425 12/23/23 0756 12/23/23 0957 BP: 120/76 136/74 137/76 Pulse: 112 102 106 Resp: 20 20 (!) 26 Temp: 36.4 C (97.6 F) 36.7 C (98.1 F) TempSrc: Oral Oral SpO2: 95% 100% Weight: 92.1 kg (203 lb 0.7 oz) Height: Admit Weight Weight: 90.3 kg (199 lb 1.2 oz) Last 3 Weights Last 3 Weight Readings 12/22/23 1208 12/23/23 0425 Weight: 90.3 kg (199 lb 1.2 oz) 92.1 kg (203 lb 0.7 oz) Body mass index is 34.85 kg/m . INTAKE/OUTPUT I/O last 3 completed shifts: In: - Out: 1000 [Urine:950; Stool:50] Intake/Output Summary (Last 24 hours) at 12/23/2023 1007 Last data filed at 12/23/2023 0844 Gross per 24 hour Intake 1213.19 ml Output 1000 ml Net 213.19 ml General appearance: Alert oriented and cooperative, In no acute distress Eyes: Conjunctivae unremarkable, EOM's intact, sclera non icteric Neck: No JVD, no carotid bruit, neck supple, trachea midline Lungs: Clear to ausculation bilaterally, no use of accessory muscles Heart:: Irregularly irregular with normal S1 and S2, no murmurs and no gallops. Abdomen: Soft, non-tender, bowel sounds normal. Extremities: Mild edema Neurologic: Moving all extremities. 68 year female with past medical history of diabetes, essential hypertension, mixed hyperlipidemia, atrial fibrillation/flutter s/p ablation 2020, heart failure with reduced ejection fraction, atherosclerotic heart disease (2020 angiogram showed moderate disease in LAD, RCA and LCX, medical management), nonrheumatic mitral and tricuspid valve regurgitation, osteomyelitis. Patient was discharged to facility, during MRI found to have hypotension and atrial fibrillation with RVR. Chronic hypotension. -persistent atrial fibrillation with RVR: [id number] score at least 5. Not on anticoagulation therapy due to recent admission for rectal bleeding. No recurrence of bleeding. -elevated cardiac troponin: Patient having chest pain, diffuse mild ST segment depression which does not appear to be new. Patient has moderate triple-vessel disease on angiogram in 2020. -severely elevated D-dimer: No reported large pulmonary embolism. 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 -atherosclerotic heart disease of [place] arteries without angina: Moderate disease 01/2021. -chronic hypotension and on midodrine. Prior history of hypertension. -history of typical atrial flutter: S/p ablation 02/2022. -questionable sepsis: -mixed hyperlipidemia: -type 2 diabetes: -CKD: Previously patient required dialysis. -history of colorectal cancer s/p small bowel resection with colostomy: -history of sacral ulcers: Recommendations: Difficult situation, patient having chest pain and elevated troponin. Also infection from sacral osteomyelitis and on 3 antibiotics. Atrial fibrillation with RVR and hypotension. I will give IV digoxin 250 x 2 today. Blood pressure borderline and can not start on any AV nuha blocking agents. Doppler lower extremity venous for DVT, severely elevated D-dimer. Sepsis management as per primary team. Okay with heparin. Continue trending troponin. Start patient on aspirin and Lipitor, If chest pain worsens, call us immediately. Thanks for the consult, will follow the patient. MAEGAN SINHA MD This note was completed using a voice workforce management manager system. Every effort was made to ensure accuracy. However, inadvertent computerized workforce management manager errors may be present. Images from the original note were not included. IP Day: 1 Subjective: No acute events overnight. Patient denying any nausea or vomiting. Complains of shortness of breath and abdominal pain. Positive ostomy output. Denies fever, chills, chest pain, or shortness of breath. Objective: Vitals: 12/23/23 1800 BP: Pulse: 85 Resp: Temp: SpO2: 98% Temp: [36.3 C (97.3 F)-36.8 C (98.2 F)] 36.3 C (97.3 F) Pulse: [85-150] 85 Resp: [20-28] 20 BP: (116-140)/(74-90) 120/86 SpO2: [95 %-100 %] 98 % O2 Device: Nasal cannula O2 Flow Rate (L/min): [2 L/min-3 L/min] 2.5 L/min Allergies Allergen Reactions Oats Intake/Output last 3 shifts: I/O last 3 completed shifts: In: - Out: 1000 [Urine:950; Stool:50] Intake/Output this shift: I/O this shift: In: 2123.4 [I.V.:1493.3; IV Piggyback:630] Out: 460 [Urine:400; Stool:60] Dietary Orders (From admission, onward) Start Ordered 12/22/23 1600 Adult diet NPO; Except medications Diet effective now Question Answer Comment Diet Type: NPO NPO Except: Except medications 12/22/23 1603 Physical Exam General Appearance: Awake, Alert & Oriented x3, No Acute Distress. Neck: Trachea Midline, No elevated Jugular Venous Pressure. Pulmonary: Unlabored breathing. No expiratory wheeze. Cardiac: Regular rhythm and rate. Abdomen: Soft, right upper quadrant and left lower quadrant slightly tender, non-distended, no rebound, no guarding. Midline wound healthy. Extremity: Full Range of Motion, No edema Bilateral Upper Extremities Skin: Dry. Non-icteric. No Rash. Eyes: Pupils Equal and Round, Non-icteric Laboratory Data: Lab Results Component Value Date WBC 13.9 (H) 12/23/2023 HGB 8.1 (L) 12/23/2023 HCT 24.5 (L) 12/23/2023 MCV 90 12/23/2023 PLT 176 12/23/2023 Lab Results Component Value Date GLU 116 (H) 12/23/2023 CALCIUM 7.1 (L) 12/23/2023 K 4.5 12/23/2023 CO2 22 12/23/2023 CL 111 (H) 12/23/2023 BUN 25 12/23/2023 CREATININE 1.17 (H) 12/23/2023 No results found for: AMYLASE Lab Results Component Value Date LIPASE 135 (H) 12/22/2023 Lab Results Component Value Date ALT 23 12/23/2023 AST 33 12/23/2023 ALKPHOS 261 (H) 12/23/2023 Lab Results Component Value Date INR 1.2 (H) 12/22/2023 INR 1.2 (H) 11/08/2023 INR 1.3 (H) 11/07/2023 PROTIME 13.8 (H) 12/22/2023 PROTIME 14.0 (H) 11/08/2023 PROTIME 14.7 (H) 11/07/2023 atorvastatin, 20 mg, oral, Nightly [START ON 12/24/2023] cefepime (MAXIPIME) IV, 2,000 mg, intravenous, Q12H metoprolol tartrate, 12.5 mg, oral, BID metroNIDAZOLE, 500 mg, intravenous, Q8H pantoprazole, 40 mg, oral, QAM AC sodium hypochlorite, 1 Application, topical, BID vancomycin, 1,250 mg, intravenous, Q24H acetaminophen dextrose dextrose 5 % in water dextrose 50 % in water (D50W) glucagon (human recombinant) heparin (porcine) iohexoL levalbuterol magnesium sulfate magnesium sulfate metoprolol (LOPRESSOR) IV ondansetron potassium chloride OR potassium chloride sodium chloride sodium chloride sodium chloride 0.9 % sodium chloride Assessment: Harris Castrejon is a 68 y.o. female whom is Hospital Day: 2 with significant past medical history who was recently in the ICU in October of 2023 secondary to GI bleed requiring exploratory laparotomy with small-bowel resection and colostomy creation. 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 Here after becoming tachycardic and hypotensive during MRI. Right upper quadrant ultrasound showing gallbladder distention with internal debris/sludge. No gallbladder wall thickening to suggest acute cholecystitis. Unlikely source for patient's deterioration. Plan: No acute surgical intervention Okay for regular diet from surgery standpoint Serial abdominal exams Follow up cultures Wound care per wound care team Pain and nausea control as needed Rest of care per primary Ryan Amador MD General Surgery Resident, PGY-1 Colorectal Surgery 6a-6p pager # [phone] 6p-6a pager #[phone] Associated attestation - Mitra Crowell MD - 12/24/2023 12:36 PM EDT Attending Attestation: I saw the patient. I participated and was physically present during the critical/[place] portions of the service. I was directly involved in the management and treatment plan of the patient. I reviewed the resident's note. Additional Notes/Findings: Patient readmitted. Patient with multiple medical issues. Patient had a long extensive stay in the hospital recently. She had been recovering at a specialty Hospital. Patient had been found to have a large rectal mass. This was read biopsied before her discharge. Final pathology did reveal malignancy. I discussed this with the patient's a proximally 2 weeks ago. We have been attempting to obtain an MRI for further staging. At this time she has a poor candidate for any surgery. She may best be treated with palliative chemotherapy radiation therapy. We will place consults Pharmacokinetic Consult - Vancomycin Dosing Harris Castrejon is a 68 y.o. female for whom pharmacy has been consulted for vancomycin dosing for bacteremia. Today is day 1 of vancomycin therapy. Relevant clinical data and objective history reviewed: Allergies: Oats Results from last 3 days Lab Units 12/22/23 1242 12/22/23 1234 CREATININE mg/dL -- 1.38* POC CREATININE mg/dL 1.4* -- BUN mg/dL -- 32* WBC X10E9/L -- 15.9* HEMOGLOBIN g/dL -- 8.1* HEMATOCRIT % -- 24.3* MCV fL -- 88 Temp Readings from Last 3 Encounters: 12/22/23 36.8 C (98.2 F) 12/04/23 37.3 C (99.1 F) (Oral) 10/18/23 36 C (96.8 F) (Axillary) Renal Parameters: No intake/output data recorded. Calculated CrCl (AdjBW): 40.3 mL/min Culture Data: Microbiology Results Procedure Component Value Units Date/Time Urine culture [[id number]] Collected: 12/22/23 1329 Specimen: Urine Updated: 12/22/23 1523 Blood Culture [[id number]] Collected: 12/22/23 123 Specimen: Blood, Peripheral Draw Updated: 12/22/23 1303 Blood Culture [[id number]] Collected: 12/22/23 1239 Specimen: Blood, Peripheral Draw Updated: 12/22/23 1303 Wound culture superficial includes gram stain [[id number]] Collected: 12/22/23 1239 Updated: 12/22/23 1419 Concurrent Antibiotics: Anti-infectives (From admission, onward) Start Dose/Rate Route Frequency Ordered Stop 12/23/23 1300 vancomycin (VANCOCIN) 1,250 mg in sodium chloride 0.9 % 250 mL IVPB-MBP 1,250 mg 167 mL/hr over 90 Minutes intravenous Every 24 hours 12/22/23 1731 12/23/23 0100 cefEPime (MAXIPIME) 2,000 mg in sodium chloride 0.9 % 100 mL IVPB-MBP 2,000 mg over 4 Hours intravenous Every 12 hours 12/22/23 1732 12/22/23 1800 metroNIDAZOLE (FLAGYL) IVPB 500 mg/100 mL in iso-osmotic sodium chloride (5 mg/mL premix) 500 mg 100 mL/hr over 60 Minutes intravenous Every 8 hours 12/22/23 1615 Recent Vancomycin Serum Concentrations: Indication: Bacteremia Goal Vancomycin Range: Trough 15-20 mcg/mL Assessment Patient is being initiated on vancomycin therapy. Renal function assessment: Chronic Kidney Disease No vancomycin level has been collected for this patient. Patient-specific risk-factors for nephrotoxicity include: pre-existing renal impairment, concomitant nephrotoxic medications, and advanced age. Plan Patient received 1750mg x1 loading dose in ED @ 1320, so will start scheduled Vancomycin regimen of 1250mg Q24 on 12/22 The next vancomycin trough will be ordered for prior to 4th dose of current regimen, unless clinically indicated sooner. Please see electronic record for orders. Pharmacy Dosing Service to follow serum concentrations and adjust as needed based on the patient's clinical status. Thank you for consulting. Bronson Espinoza PharmD documented in this encounter [facility] 12-27-2023 Hospital Discharge instructions Brandon Carrillo MD - 12/27/2023 11:48 AM EDT - please apply wound vac to the sacral wound and abdominal wound. documented in this encounter [facility] 12-27-2023 Nurse Note Patient's called RN back upset that RN called and RN explained she was just trying to keep updated on her care in case he came to the hospital and she was not in the room. cursed at RN and hung up the phone. RN attempted to call patient's to inform him of her MRI that is scheduled at 0900. No answer and call went straight to voicemail. Will attempt to call again later Manager Of Regulatory Affairs attempted to reach patients , Liborio, to have him fill out MRI Checklist via telephone. Liborio did not pick up driver and call was sent to voicemail. Pt spouse in room, very upset that pt has rook boots on. Spouse educated on importance of boots to help prevent sores on heels. Pt spouse said she did not like them and and demanded RN take them off, to use pillows instead. Rook boots removed and pillows placed under legs so heels of off-loaded. PCS Malorie Lopez And lost charge card clerk Shante notified. documented in this encounter [facility] 12-24-2023 Consult note Associated Order (s): IP CONSULT TO INFECTIOUS DISEASES Images from the original note were not included. Infectious Diseases Academic Team 1 - Initial Consult Note - Please contact us via PISTIS Consult chat. After hours, call [phone] Patient name: Harris Castrejon Patient Today's Date and Time: 12/24/2023, 6:40 PM Admission Date: 12/22/2023 Impression: Chronically ill patient with a very large number of medical problems who recently developed a huge sacrococcygeal ulcer which was treated with Unasyn for 6 weeks for potential osteomyelitis of the sacrum. She presented with atrial fibrillation with RVR which could explain the leukocytosis. Her wound looks quite clean but is very deep. Her blood cultures are negative and she is awake but she looks chronically ill. She does not look septic at all to me. Her abdominal exam does not reflect the CT abdomen findings Recommendations: Stop cefepime and start ceftriaxone. Continue Flagyl (NPO so keep IV) and vancomycin until we have the susceptibilities for Staph aureus. A PICC line was already placed by the primary team but I am not planning to give her a long course of IV antibiotics. Depending on the staph susceptibilities will put together an oral regimen. Please note that pelvic bone osteomyelitis is generally not a curable entity in majority of patients with such large ulcers. I would limit the use of Dakin's since she has exposed bone. I will try to be at the bedside for the next dressing change. Will coordinate with wound care Subjective Reason for consultation / Chief complaint: Sepsis History of Present Illness Harris Castrejon is a 68 y.o.-year-old female who was initially admitted on 12/22/2023. This is a 68-year-old woman admitted 12/21 for mental status changes, tachycardia and hypotension. On presentation she had AFib with RVR she was tachycardic in the 160s and 170s low blood pressure improved with fluids, digoxin, midodrine. This patient has very complex history. She was admitted for about a month and a half between end of September and early November. She presented initially to [place] [facility] with hypoglycemia and pain from wounds on her buttocks she would acute renal failure sepsis and she had are AFib with RVR that time too. She was intubated and transferred to [facility] she spent some time in the ICU had a very complicated hospital admission her sacrum ulcer was debrided bone culture was positive for Enterococcus and Bacteroides. Colonoscopy and EGD done on October 23 showed severe esophagitis. No fistula multiple polyps in the large erosion in the distal rectum. Biopsy showed high-grade dysplasia and could not rule out malignancy. The patient was treated with Unasyn for 6 weeks through November 30. She continues to have a very large sacrococcygeal ulcer that I was not able to see an person today. I did look at the picture that was placed in the media section and most of the wound looks fairly clean. She seems to have bone exposure in the wound bed. 11/08/23 she was found to have mesenteric ischemia was taken to OR; intra op a 20 cm segment of small bowel was grossly gangrenous and was excised, and she had an end colostomy created. For the past 2 days and half she has not had any fever but she does have leukocytosis 15.9-13.9-17.9 She has received hydrocortisone since admission 12/21 she was started on cefepime Flagyl and vancomycin for suspected sepsis with an intra-abdominal source. A superficial swab was done from the open ulcer that is basically in contact with her bed. This culture grew a variety of organisms from staph aureus 2 week coli and group a strep. Staph susceptibilities are pending but the E coli susceptible to ceftriaxone resistant to Bactrim Cipro Augmentin She has a Dasilva and a culture sent from urine grew Enterococcus. A CT abdomen shows distended gallbladder. Rad oncology was consulted and they plan more imaging - an MRI of pelvis Past Medical History: Past Medical History: Diagnosis Date Arrhythmia Hypertension Injury of back Disc L4 and L5 Obesity Respiratory distress 10/19/2023 Septic shock ([facility]) 12/22/2023 Systolic and diastolic CHF, acute ([facility]) 09/03/2023 Visual impairment Past Surgical History: Past Surgical History: Procedure Laterality Date APPLICATION WOUND VAC N/A 11/07/2023 Performed by Mitra Crowell MD at [facility] Cardiac catheterization 02/16/2021 Performed by Kelli Su MD at [facility] CARDIAC CATH LABS Caval Tricuspid Isthmus RFA, Carto w/ICE N/A 03/21/2021 Performed by Lurdes Weinberg MD at [facility] HR (EP) COLONOSCOPY POLYPECTOMY N/A 10/23/2023 Performed by Soy Talamantes MD at [facility] Coronary angiogram and left ventricular gram/pressure N/A 02/16/2021 Performed by Kelli Su MD at [facility] CARDIAC CATH LABS Coronary fractional flow reserve N/A 02/16/2021 Performed by Kelli Su MD at [facility] CARDIAC CATH LABS CREATION OF END COLOSTOMY N/A 11/07/2023 Performed by Mitra Crowell MD at [facility] ESOPHAGOGASTRODUODENOSCOPY DIAGNOSTIC N/A 10/23/2023 Performed by Soy Talamantes MD at [facility] EXAM UNDER ANESTHESIA WITH BRECTAL BIOPSY N/A 11/28/2023 Performed by Mitra Crowell MD at [facility] EXAM UNDER ANESTHESIA/RECTAL MASS BIOPSY N/A 10/25/2023 Performed by Mitra Crowell MD at [facility] FLEXIBLE SIGMOIDOSCOPY N/A 10/25/2023 Performed by Mitra Crowell MD at [facility] FLEXIBLE SIGMOIDOSCOPY WITH BIOPSY N/A 11/28/2023 Performed by Mitra Crowell MD at [facility] INSCISIONAL DEBRIDEMENT SACRUM N/A 10/20/2023 Performed by Magdi Matthew MD at [facility] INSERT ARTERIAL LINE 11/05/2023 INSERT ARTERIAL LINE 11/07/2023 Intravascular pressure measurement first vessel each additional vessel (fractional flow reserve) N/A 02/16/2021 Performed by Kelli Su MD at [facility] CARDIAC CATH LABS INTUBATION 11/07/2023 LAPAROTOMY EXPLORATORY N/A 11/07/2023 Performed by Mitra Crowell MD at [facility] MYRINGOTOMY W/ TUBES RESECTION BOWEL SMALL N/A 11/07/2023 Performed by Mitra Crowell MD at [facility] TONSILLECTOMY Medications: aspirin, 81 mg, oral, Daily atorvastatin, 20 mg, oral, Nightly cefepime (MAXIPIME) IV, 2,000 mg, intravenous, Q12H metoprolol tartrate, 25 mg, oral, BID metroNIDAZOLE, 500 mg, intravenous, Q8H pantoprazole, 40 mg, oral, QAM AC sodium hypochlorite, 1 Application, topical, BID vancomycin, 1,250 mg, intravenous, Q24H Social History: Social History Socioeconomic History Marital status: Spouse name: Not on file Number of children: Not on file Years of education: Not on file Highest education level: Not on file Occupational History Not on file Tobacco Use Smoking status: Some Days Types: Cigarettes Smokeless tobacco: Never Tobacco comments: 2 cigarettes a day Vaping Use Vaping Use: Never used Substance and Sexual Activity Alcohol use: Never Drug use: Never Sexual activity: Defer Other Topics Concern Coffee Not Asked Tea Not Asked Carbonated Beverages Not Asked Chocolate Not Asked Caffeine Use Yes Social History Narrative Not on file Social Determinants of Health Financial Resource Strain: Not on file Food Insecurity: Not on file (12/22/2023) Transportation Needs: No Transportation Needs (09/30/2023) PRAPARE - Transportation Lack of Transportation (Medical): No Lack of Transportation (Non-Medical): No Physical Activity: Not on file Stress: Not on file Social Connections: Not on file Interpersonal Safety: Not At Risk (09/30/2023) Humiliation, Afraid, Rape, and Kick questionnaire Fear of Current or Ex-Partner: No Emotionally Abused: No Physically Abused: No Sexually Abused: No Housing Instability: Low Risk (09/30/2023) Housing Instability Housing Instability: No Family History: Family History Problem Relation Age of Onset No Known Problems Mother Heart attack Father Immunization History: Immunization History Administered Date(s) Administered COVID-19, mRNA, LNP-S, PF, 30mcg/0.3mL Dose 02/02/2021, 02/23/2021 Influenza, Injectable, Mdck, Preservative Free, Quad 10/14/2021 Influenza, Injectable, Quadrivalent 07/31/2020 Allergies: Allergies Allergen Reactions Oats Review of Systems: General: No fevers or chills. Eyes: No double vision or blurry vision. ENT: No sore throat or runny nose. Cardiovascular: chest pain and palpitations resolved Lung: + shortness of breath and dry cough. Abdomen: No nausea, vomiting, diarrhea, or abdominal pain. Genitourinary: No increased urinary frequency, or dysuria. Musculoskeletal: No muscle aches or pains. Hematologic: No bleeding or bruising. Neurologic: No headache, weakness, numbness, or tingling. Objective Physical Examination: BP 132/65 Pulse 96 Temp 36.3 C (97.4 F) (Oral) Resp 17 Ht 162.6 cm (5' 4 ) Wt 96.1 kg (211 lb 13.8 oz) SpO2 98% BMI 36.37 kg/m Temperature Range: Temp: 36.3 C (97.4 F) Temp Av.4 C (97.5 F) Min: 36.2 C (97.2 F) Max: 36.5 C (97.7 F) General Appearance: Awake, alert, and in no apparent distress, chronically ill, not toxic though. Pressured speech Head: Normocephalic, without obvious abnormality, atraumatic Eyes: Pupils equal, round, reactive, to light and accommodation; extraocular movements intact; sclera anicteric; conjunctivae pink ENT: Oropharynx clear, without erythema, exudate, or thrush.edentulous Neck: Supple, without lymphadenopathy. Pulmonary/Chest: Clear to auscultation, without wheezes, rales, or rhonchi Cardiovascular: irregular. HR<100 Abdomen: Soft, nontender, nondistended, colostomy with normal looking stool. Small superficial clean wound around umbilicus I could not see the decubitus ulcer, but here is a picture: Extremities: No cyanosis, clubbing, trace edema, no joint effusions. Skin: No rash Labs: Results from last 7 days Lab Units 12/24/23 0520 12/23/23 1735 12/23/23 0945 12/23/23 0326 12/22/23 1234 WBC X10E9/L 17.9* -- -- 13.9* 15.9* HEMOGLOBIN g/dL 7.9* 8.1* 7.3* 8.2* 8.1* HEMATOCRIT % 24.4* 24.5* 22.5* 25.4* 24.3* MCV fL 90 -- -- 90 88 PLATELETS X10E9/L 211 -- -- 176 197 NEUTROS ABS X10E9/L 14.8* -- -- 12.7* 12.8* LYMPHS ABS AUTO X10E9/L 1.8 -- -- 0.8* 1.5 MONOS ABS AUTO X10E9/L 1.1* -- -- 0.3 1.3* EOS ABS AUTO X10E9/L 0.1 -- -- 0.0 0.2 BASOS ABS AUTO X10E9/L 0.1 -- -- 0.0 0.0 Results from last 7 days Lab Units 12/24/23 1710 12/24/23 0520 12/23/23 2048 12/23/23 0423 12/23/23 0326 12/22/23 1242 12/22/23 1234 SODIUM mmol/L 141 144 -- -- 142 -- 142 POTASSIUM mmol/L 4.2 4.0 -- -- 4.5 -- 4.5 CHLORIDE mmol/L 113* 115* -- -- 111* -- 105 CO2 mmol/L 20* 19* -- -- 22 -- 24 BUN mg/dL 26 27 -- -- 25 -- 32* CREATININE mg/dL 1.11* 1.17* -- -- 1.17* -- 1.38* POC CREATININE -- -- -- -- -- < > -- BEDSIDE GLUCOSE mg/dL -- -- 104* < > -- < > -- GLUCOSE mg/dL 95 99 -- < > 79 -- 42* CALCIUM mg/dL 6.7* 6.8* -- -- 7.1* -- 7.8* ALK PHOS U/L -- 198* -- -- 261* -- -- ALT U/L -- 18 -- -- 23 -- 28 AST U/L -- 23 -- -- 33 -- 36 < > = values in this interval not displayed. Results from last 7 days Lab Units 12/22/23 1841 SED RATE mm/h 20 HEMOGLOBIN A1C % 6.8* Results from last 7 days Lab Units 12/22/23 1337 12/22/23 1326 SPECIFIC GRAVITY KALINA 1.020 -- LEUKOCYTE ESTERASE KALINA Trace* -- UROBILINOGEN KAILNA eu/dL 1.0 -- RBC UA /hpf -- 3 WBC UA /hpf -- 40* Imaging Studies: X-ray chest 1 view Result Date: 12/23/2023 XR CHEST 1 VW History: Short of breath. One view study. Comparison: 12/22/2023 and 11/30/2023 Impression: * No significant interval change.Cardiac silhouette remains grossly enlarged but unchanged. This may represent cardiomegaly and/or pericardial effusion. Chronic elevation the right hemidiaphragm is noted. Unchanged left PICC line. No acute pulmonary process is seen. No large effusion is noted Finalized by Yany Vargas MD on 12/23/2023 2:11 PM Vas venous duplex lwr bilateral Result Date: 12/23/2023 Right: Lower extremity deep veins are compressible with spontaneous phasic spectral Doppler waveforms; superficial veins are compressible without intraluminal content. Left: Lower extremity deep veins are compressible with spontaneous phasic spectral Doppler waveforms; superficial veins are compressible without intraluminal content. General: Incidental finding of left nodular mass without color flow in the groin. Conclusions: BILATERAL: NO EVIDENCE of deep or superficial vein thrombosis of the lower extremities. LEFT:Incidental finding may warrant further investigation Recommendations: Any questions prior to finalization, please call the reading physician during normal business hours at the phone number beside their name. Ultrasound abdomen limited Result Date: 12/22/2023 US ABDOMEN LMTD HISTORY: Cholecystitis COMPARISON: CT abdomen and pelvis today PROCEDURE: Real-time grayscale ultrasound and limited color flow performed. FINDINGS: Liver demonstrate normal echogenicity. No discrete masses visualized. MPV demonstrates low velocity flow of 11.3 cm/s. Common bile duct is nondilated, measuring 4 mm. Gallbladder wall thickness is within normal limits. The gallbladder is diffusely distended with layering internal debris, sludge. No shadowing echogenic foci. Negative sonographic Andre's sign. The visualized portions of the pancreas are within normal limits. Trace fluid seen adjacent to the right hepatic lobe. IMPRESSION: * Gallbladder distention with internal debris/sludge. No gallbladder wall thickening to suggest acute cholecystitis. Finalized by Gracie Ontiveros MD on 12/22/2023 6:[address] chest with contrast Result Date: 12/22/2023 CLINICAL STATEMENT: Colon cancer, assess response to treatment, sepsis COMPARISON: 11/07/2023 TECHNIQUE: Axial views were obtained from the lung apices to the lung bases following the uneventful administration of 100 mL IV contrast. Coronal and sagittal MPR reconstructions were performed. FINDINGS: The visualized portion of the thyroid gland is stable, possible underlying small cysts or nodules. Interval resolution of the bilateral small pleural effusions. There is now residual posterior dependent atelectatic changes. Atelectasis versus groundglass opacity of the left lung apex (image 21 of 87) which measures up to 1.4 cm in diameter. No new solid pulmonary nodules. Precarinal mediastinal lymph node measures 11 x 12 mm, previously 8 x 9 mm. The ascending aorta, the aortic arch, and the descending aorta show demonstrate no aneurysmal dilatation. Moderate calcifications of the aortic arch. Normal three-vessel branching pattern. The pulmonary arteries show no large proximal filling defects. Pulmonary arteries are not enlarged. The heart is normal in size and morphology. Multivessel severe coronary artery calcifications. SVC appears normal. The esophagus, the trachea, and the main bronchi show no definite abnormality. Abdominal findings discussed on CT abd pelvis performed concurrently. IMPRESSION: * There is a new focal opacity of the left lung apex pleural. This may represent focal infectious or atelectatic infiltrate though developing groundglass or solid nodule cannot be excluded. Recommend 3 month follow-up. * Slight increased size of a precarinal mediastinal node which measures 12 mm, previously 9 mm. Change in size could be reactive or metastatic, continued follow-up recommended. * No new solid pulmonary nodes. * Resolution of previous bilateral effusions. * Stable cardiomegaly and multivessel coronary artery calcifications. Finalized by Gracie Ontiveros MD on 12/22/2023 3:[address] abdomen and pelvis with contrast Result Date: 12/22/2023 CLINICAL INFORMATION: Sepsis; Metastatic disease evaluation; Colon cancer, staging; hx colon ca, tachy, hypotensive, abdominal wall wound with sri pus. COMPARISON: 11/07/2023 TECHNIQUE: CT of the abdomen and pelvis with intravenous contrast. FINDINGS: LOWER CHEST: Interpreted separately. LIVER AND BILIARY: Distended gallbladder with periportal edema. No suspicious focal liver lesion. PANCREAS: Within normal limits. SPLEEN: Within normal limits. ADRENALS: Within normal limits. KIDNEYS, URETERS, AND BLADDER: Symmetric enhancement. No suspicious lesion or hydronephrosis. Bladder gas with indwelling Dasilva catheter. GI TRACT AND PERITONEUM: Prior heart and stomach. Left lower quadrant colostomy. No postoperative obstruction. Thickened rectum/anal canal. Presumed endoscopy clips in the cecum; correlate with any recent intervention. Prior small bowel resection the right lower quadrant. Nonvisualized appendix. No free air. Small volume free fluid VASCULATURE: Normal caliber aorta. Advanced atherosclerosis of the SMA, poorly characterize given technique. LYMPH NODES: Within normal limits. REPRODUCTIVE ORGANS: No asymmetry. MUSCULOSKELETAL: Soft tissue defect over the sacrum, approximately 2 cm with skin thickening and inflammation, likely extending to the sacrum. Osteopenia. No acute osseous abnormality. IMPRESSION: 1. Distended gallbladder with periportal edema. Correlate with LFTs/right upper quadrant pain. Consider ultrasound follow-up. 2. Large sacral decubitus soft tissue ulcer. Underlying osteomyelitis not excluded. 3. Nonspecific thickening of the rectum/anal canal. 4. Additional findings as above All CT scans at this facility use dose modulation, iterative reconstruction, and/or weight based dosing when appropriate to reduce radiation dose to as low as reasonably achievable. Finalized by Krystal Crowley MD on 12/22/2023 3:01 PM X-ray chest 1 view Result Date: 12/22/2023 Portable chest: HISTORY: Cough and sepsis. Single view the chest was obtained. Cardiac silhouette is enlarged but unchanged. Pulmonary vasculature is congested. No pneumothorax seen. Central line tip in the region of the SVC. IMPRESSION: Cardiomegaly and vascular congestion. Finalized by Ray Vo MD on 12/22/2023 1:52 PM MR abdomen without contrast Result Date: 12/22/2023 History: Rectal cancer. Metastatic survey. Exam/Technique: Multiplanar, multisequence MR imaging is obtained of the abdomen without intravenous contrast. The patient was unable to tolerate the full extent of the examination and an appreviated protocol was obtained. Comparison: CT abdomen 11/07/2019 Findings: Gallbladder is moderately distended with dependent sludge possible small stones. This is exerting some mass effect on the common bile duct or no ductal dilatation demonstrated. Pancreas and pancreatic duct appear to be within normal limits. No acute liver, spleen or adrenal pathology demonstrated. Kidneys show no evidence hydronephrosis. Left lower quadrant ostomy partially visualized without gross complication. IMPRESSION: * Abbreviated MRI due to patient claustrophobia. * Moderate gallbladder distention with sludge and potentially small stones. No acute findings otherwise. Finalized by Jamie Lester DO on 12/22/2023 12:53 PM I have personally reviewed these studies. Cultures: Microbiology Results Procedure Component Value Units Date/Time Urine culture [[id number]] (Abnormal) Collected: 12/22/23 1326 Specimen: Urine from Dasilva Catheter Specimen Updated: 12/24/23 1115 Culture >100,000 ORGANISMS/mL ENTEROCOCCUS SPECIES Ampicillin or Amoxicillin is the drug of choice for uncomplicated cystitis caused by enterococci. Cephalosporins are inappropriate. 50,000 to 100,000 ORGANISMS/mL NORMAL URO GENITAL LALY The urine of patients with catheters usually becomes colonized. Treatment may not be indicated. Correlate these findings with clinical presentation. If sepsis is suspected, contact laboratory for reporting AST results. DR MEDINA REQUESTED SUSCEPTIBILITY 12/23 CULTURE IN PROGRESS Wound culture superficial includes gram stain [[id number]] (Abnormal) (Susceptibility) Collected: 12/22/23 1231 Specimen: Wound Swab Updated: 12/24/23 1020 Gram Stain Result >25 WHITE BLOOD CELLS/LPF 10 to 24 SQUAMOUS EPITHELIAL CELLS/LPF RARE GRAM POSITIVE COCCI IN CLUSTERS INTRACELLULAR EXTRACELLULAR RARE PLEOMORPHIC GRAM POSITIVE RODS Culture FEW ESCHERICHIA COLI RARE STAPHYLOCOCCUS AUREUS : SUSCEPTIBILITY TESTING IN PROGRESS RARE STREPTOCOCCUS PYOGENES (GROUP A) ALONG WITH FEW NORMAL SKIN LALY Susceptibility Escherichia Coli PRESTON METHOD (Preliminary) AMP/SULBACTAM >=32/16 Resistant Ampicillin >=32 Resistant Cefazolin <=4 (VIEW NOTES) [1] Ceftriaxone <=1 Susceptible Ciprofloxacin >=4 Resistant Gentamicin <=1 Susceptible Levofloxacin >=8 Resistant PIPERACIL/TAZOBACTAM <=4 Susceptible Tobramycin <=1 Susceptible TRIMETH/SULFAMETHOXAZOLE >=16/304 Resistant [1] CLSI interpretive criteria for nonurinary isolates are as follows: <=2 Susceptible, 4 Intermediate, Resistant >=8. Contact Microbiology laboratory if further susceptibility testing for Cefazolin is required. Blood Culture [[id number]] Collected: 12/22/23 1218 Specimen: Blood Updated: 12/24/23 1303 Culture NO GROWTH 2 DAYS Blood Culture [[id number]] Collected: 12/22/23 1218 Specimen: Blood Updated: 12/24/23 1303 Culture NO GROWTH 2 DAYS Thank you for allowing us to participate in the care of this patient. - ROBERT GARCÍA MD 12/24/23 6:40 PM [facility] Infectious Diseases Please contact us via PISTIS Consult chat Associated Order(s): IP CONSULT TO RADIATION ONCOLOGY Images from the original note were not included. [facility] Radiation Oncology Reginald Villalta M.D. Reinaldo Olivarez M.D. Favio Dupree M.D. Robert Rosas M.D. Glenny Pierre, CARDIAC CATH TECHNICIANFORSY[facility] Shannon Adame M.D. Silvano Glass M.D. Hannah Monaco M.D. Randi Barker, [facility] [facility] RADIATION ONCOLOGY INPATIENT CONSULT Date of Service: 12/24/23 Location: [address] [facility] [id number] Patient ID: Name: Harris Castrejon : 1955 Harris Castrejon is being seen today for an oncologic opinion at the request of Dr. Jose Ferguson. Chief Complaint Chief Complaint Patient presents with Atrial Fibrillation Cancer Staging Patient Active Problem List Diagnosis Cerumen debris on tympanic membrane of both ears Typical atrial flutter (CMS-HCC) Coronary artery disease involving [place] coronary artery of [place] heart without angina pectoris Tachycardia induced cardiomyopathy (CMS-HCC) Type 2 diabetes mellitus with circulatory disorder, without long-term current use of insulin (CMS-HCC) Other hyperlipidemia Paroxysmal atrial fibrillation (CMS-HCC) BRANDEE (acute kidney injury) (CMS-HCC) Hyperkalemia Bilateral lower extremity edema Systolic and diastolic CHF, acute (CMS-HCC) Acute kidney injury (CMS-HCC) Acute UTI (urinary tract infection) Skin ulcer of sacrum (CMS-HCC) Altered mental status Hypokalemia CKD (chronic kidney disease) stage 4, GFR 15-29 ml/min (CMS-HCC) Bacteremia Respiratory distress Myoclonus Pressure injury of sacral region, stage 4 (CMS-HCC) Anemia Anemia, blood loss ISTAP type 2 skin tear of right forearm ISTAP type 3 skin tear of right forearm Moderate protein-calorie malnutrition (CMS-HCC) Septic shock (CMS-HCC) Adenocarcinoma of rectum (CMS-HCC) History of Present Illness Harris Castrejon is a 68 y.o. year-old female who presents with newly diagnosed adenocarcinoma of the rectum. She was recently hospitalized on 10/19/2023 to 12/04/2023 where she presented to [place] ED with generalized weakness. She was found to be hyperglycemic and also was having pain from the wounds on her buttocks. She was found to be positive for UTI, had BRANDEE on CKD stage 4, elevated lactate, elevated BNP, and also found to be in atrial fibrillation with RVR. Due to uncontrolled atrial fibrillation with RVR, patient was ultimately intubated for airway protection and transferred to [facility] ICU for the management care. From there she had a very complicated hospital admission. On 10/20/2023, patient underwent sacral debridement with general surgery. Bone culture was positive for Enterococcus faecalis and anaerobic culture with positive for bacteroides. On 10/23/2023, patient underwent EGD/Colonoscopy that demonstrated severe esophagitis, perianal fistula, multiple polyps removed, large lesion in the distal rectum on 10/25/2023 she underwent a flexible sigmoidoscopy with biopsy. Pathology demonstrated high-grade dysplasia, cannot rule out malignancy. Later into the admission, patient developed a lower GI bleed. CT of the abdomen/pelvis from 11/05/2023 demonstrated a cecal bleed where she underwent an IR embolization. Patient then decompensated on 11/07/[address] of the abdomen/pelvis demonstrated possible ischemic bowel. She then underwent an exploratory laparotomy with small-bowel resection, colostomy formation and wound VAC placement. On 11/28/2023, patient underwent a repeat flexible sigmoidoscopy with findings of previous large mass in the distal rectum with sri red bleeding and biopsies were taken at that time. Pathology demonstrated adenocarcinoma. On 12/22/2023, patient was found to be tachycardic, hypotensive, and tachypneic when she was undergoing MRI in the outpatient setting prompting evaluation in the ED. (MRI on 12/22/2023 which was abbreviated MRI due to patient claustrophobia. It demonstrated moderate gallbladder distention with sludge and potentially small stones but no other acute findings.) She was also found to have some confusion. CXR on admission demonstrated cardiomegaly and vascular congestion. CT of the chest/abdomen/pelvis demonstrated a new focal opacity of the left lung apex pleural. Slight increased size of a precarinal mediastinal node which measures 12 mm, previously 9 mm. No new solid pulmonary nodes. Resolution of previous bilateral effusions. Stable cardiomegaly and multivessel coronary artery calcifications. Distended gallbladder with periportal edema. Large sacral decubitus soft tissue ulcer. Underlying osteomyelitis not excluded. Nonspecific thickening of the rectum/anal canal. There were concerns for sepsis and also atrial fibrillation with RVR. Encephalopathic on admission. Patient was admitted for further management care. Ultrasound of the abdomen from 12/22/2023 demonstrated gallbladder distention with internal debris/sludge. No gallbladder wall thickening to suggest acute cholecystitis. Subjectively, she was resting in bed with no family present at bedside. She is drowsy on evaluation in she held her right hand up during whole conversation. She reports she does not feel role and complaints of abdominal pain at this time. She was alert and oriented x3 intermittently but was slow to respond and would not answer all questions. She appears to be a poor historian. Past Medical History: Diagnosis Date Arrhythmia Hypertension Injury of back Disc L4 and L5 Obesity Respiratory distress 10/19/2023 Septic shock ([facility]) 12/22/2023 Systolic and diastolic CHF, acute ([facility]) 09/03/2023 Visual impairment Past Surgical History: Procedure Laterality Date APPLICATION WOUND VAC N/A 11/07/2023 Performed by Mitra Crowell MD at [facility] Cardiac catheterization 02/16/2021 Performed by Kelli Su MD at [facility] CARDIAC CATH LABS Caval Tricuspid Isthmus RFA, Carto w/ICE N/A 03/21/2021 Performed by Lurdes Weinberg MD at [facility] AT [facility] () COLONOSCOPY POLYPECTOMY N/A 10/23/2023 Performed by Soy Talamantes MD at [facility] Coronary angiogram and left ventricular gram/pressure N/A 02/16/2021 Performed by Kelli Su MD at [facility] CARDIAC CATH LABS Coronary fractional flow reserve N/A 02/16/2021 Performed by Kelli Su MD at [facility] CARDIAC CATH LABS CREATION OF END COLOSTOMY N/A 11/07/2023 Performed by Mitra Crowell MD at [facility] ESOPHAGOGASTRODUODENOSCOPY DIAGNOSTIC N/A 10/23/2023 Performed by Soy Talamantes MD at [facility] EXAM UNDER ANESTHESIA WITH BRECTAL BIOPSY N/A 11/28/2023 Performed by Mitra Crowell MD at [facility] EXAM UNDER ANESTHESIA/RECTAL MASS BIOPSY N/A 10/25/2023 Performed by Mitra Crowell MD at [facility] FLEXIBLE SIGMOIDOSCOPY N/A 10/25/2023 Performed by Mitra Crowell MD at [facility] FLEXIBLE SIGMOIDOSCOPY WITH BIOPSY N/A 11/28/2023 Performed by Mitra Crowell MD at [facility] INSCISIONAL DEBRIDEMENT SACRUM N/A 10/20/2023 Performed by Magdi Matthew MD at [facility] INSERT ARTERIAL LINE 11/05/2023 INSERT ARTERIAL LINE 11/07/2023 Intravascular pressure measurement first vessel each additional vessel (fractional flow reserve) N/A 02/16/2021 Performed by Kelli Su MD at [facility] CARDIAC CATH LABS INTUBATION 11/07/2023 LAPAROTOMY EXPLORATORY N/A 11/07/2023 Performed by Mitra Crowell MD at [facility] MYRINGOTOMY W/ TUBES RESECTION BOWEL SMALL N/A 11/07/2023 Performed by Mitra Crowell MD at [facility] TONSILLECTOMY Scheduled Meds: aspirin, 81 mg, oral, Daily atorvastatin, 20 mg, oral, Nightly cefepime (MAXIPIME) IV, 2,000 mg, intravenous, Q12H metoprolol tartrate, 25 mg, oral, BID metroNIDAZOLE, 500 mg, intravenous, Q8H pantoprazole, 40 mg, oral, QAM AC sodium hypochlorite, 1 Application, topical, BID Continuous Infusions: dextrose 5 % in water, 100 mL/hr dextrose 5 % in water 1,000 mL with potassium chloride 40 mEq, sodium bicarbonate 8.4 % (1 mEq/mL) 50 mEq infusion, 75 mL/hr heparin, 300-3,500 Units/hr, Last Rate: 1,000 Units/hr (12/23/232125) sodium chloride 0.9 %, 20 mL/hr PRN Meds:. acetaminophen calcium gluconate calcium gluconate calcium gluconate dextrose dextrose 5 % in water dextrose 50 % in water (D50W) glucagon (human recombinant) heparin (porcine) iohexoL levalbuterol magnesium sulfate magnesium sulfate metoprolol (LOPRESSOR) IV ondansetron potassium chloride OR potassium chloride sodium chloride sodium chloride sodium chloride 0.9 % sodium chloride ALLERGIES: Allergies Allergen Reactions Oats Social History Socioeconomic History Marital status: Spouse name: Not on file Number of children: Not on file Years of education: Not on file Highest education level: Not on file Occupational History Not on file Tobacco Use Smoking status: Some Days Types: Cigarettes Smokeless tobacco: Never Tobacco comments: 2 cigarettes a day Vaping Use Vaping Use: Never used Substance and Sexual Activity Alcohol use: Never Drug use: Never Sexual activity: Defer Other Topics Concern Coffee Not Asked Tea Not Asked Carbonated Beverages Not Asked Chocolate Not Asked Caffeine Use Yes Social History Narrative Not on file Social Determinants of Health Financial Resource Strain: Not on file Food Insecurity: Not on file (12/22/2023) Transportation Needs: No Transportation Needs (09/30/2023) PRAPARE - Transportation Lack of Transportation (Medical): No Lack of Transportation (Non-Medical): No Physical Activity: Not on file Stress: Not on file Social Connections: Not on file Interpersonal Safety: Not At Risk (09/30/2023) Humiliation, Afraid, Rape, and Kick questionnaire Fear of Current or Ex-Partner: No Emotionally Abused: No Physically Abused: No Sexually Abused: No Housing Instability: Low Risk (09/30/2023) Housing Instability Housing Instability: No Family History Problem Relation Age of Onset No Known Problems Mother Heart attack Father No data recorded Review of Systems Review of Systems Unable to perform ROS: Mental status change Physical Exam Recreation Center Director:declined Vital Signs: BP 135/59 Pulse 116 Temp 36.2 C (97.2 F) (Oral) Resp 20 Ht 162.6 cm (5' 4 ) Wt 96.1 kg (211 lb 13.8 oz) SpO2 98% BMI 36.37 kg/m ECOG=3 General: Ill-appearing, drowsy, alert and oriented x3 intermittently. Head: Normocephalic, atraumatic. Ears normal, nares patent. Eyes: PERRL, conjunctivae normal. Neck: No tracheal deviation, neck supple, no thyromegaly. Cardiovascular: Irregularly irregular rate and rhythm. 2+ peripheral pulses bilaterally in upper and lower extremities. Pulmonary: Clear to auscultation bilaterally, lung sounds diminished at bases. Without increased effort. Abdomen: Soft, nondistended. Colostomy intact. Neurological: No gross deficits. Moving all extremities to command. Skin: Warm, no rashes or erythema. Extremities: No cyanosis or clubbing. No peripheral edema. Psych: Flat affect. Alert and oriented x3 intermittently. Assessment and Plan Harris Castrejon is a 68 y.o. female who presents with newly diagnosed adenocarcinoma of the rectum. She was recently hospitalized on 10/19/2023 to 12/04/2023 where she presented to [place] ED with generalized weakness. She had a very complicated hospital admission. On 10/23/2023, patient underwent EGD/colonoscopy that demonstrated severe esophagitis, perianal fistula, multiple polyps removed, large lesion in the distal rectum on 10/25/2023 she underwent a flexible sigmoidoscopy with biopsy. Pathology demonstrated high-grade dysplasia, cannot rule out malignancy. On 11/28/2023, patient underwent a repeat flexible sigmoidoscopy with findings of previous large mass in the distal rectum with sri red bleeding and biopsies were taken at that time. Pathology demonstrated adenocarcinoma. On 12/22/2023, patient was found to be tachycardic, hypotensive, and tachypneic when she was undergoing MRI in the outpatient setting prompting evaluation in the ED. (MRI on 12/22/2023 which was abbreviated MRI due to patient claustrophobia. It demonstrated moderate gallbladder distention with sludge and potentially small stones but no other acute findings.) CT of the chest/abdomen/pelvis demonstrated a new focal opacity of the left lung apex pleural. Slight increased size of a precarinal mediastinal node which measures 12 mm, previously 9 mm. No new solid pulmonary nodes. Resolution of previous bilateral effusions. Stable cardiomegaly and multivessel coronary artery calcifications. Distended gallbladder with periportal edema. Large sacral decubitus soft tissue ulcer. Underlying osteomyelitis not excluded. Nonspecific thickening of the rectum/anal canal. There were concerns for sepsis and also atrial fibrillation with RVR. At this time, patient would need further staging done to have a definitive plan of care in regards to her adenocarcinoma of the rectum as that is still pending. We would agree with patient undergoing MRI of the rectum for staging. Also, patient's performance status would need to significantly improve in addition with improvement in her acute issues. She would need to be able to tolerate treatments on the radiation table and follow instruction to complete treatment. We will continue to follow along and continue to evaluate appropriateness for radiotherapy in the future. Total face to face time I spent with the patient was 45 minutes, with more than 50% of the visit spent on discussing above-described issues. In addition, I spent 10 minutes reviewing the patient's chart and 10 minutes preparing this dictation. NICOLAS Miller [facility] December 24, 2023 CC: Patient Care Team: Carol Akins PA-C as PCP - General (Physician Parking Ramp Attendant) NICOLAS Miller 12/24/23 [id number] Images from the original note were not included. [facility] Gurpreet Saste, M.D. Racquel Langston M.D. Sonya Ruelas M.D. Sunni Stack M.D. Tara Funes, [facility] Keron Stahl, [facility] Tiffanie Segal, [facility] Rufina Nile, [facility] JUAN Brown M.D. Tc Ridley M.D. Reinaldo Felder M.D. Alfred Adams M.D. Carole Gaviria, [facility] Jenny Unique, [facility] Tian Dhaliwal, [facility] Yeny Mitchell, [facility] Mendy Nielsen, [facility] CONSULT NOTE 12/24/23 Reason for consult: for rectal cancer History of present illness: The patient is a 68 y.o. female who appears somewhat altered, alert to self/place, unsure of date states it is 2003. She is sleepy through my examination however arouses easily to name. States she has been having abdominal pain some mild shortness of breath along with fatigue. Otherwise patient is a poor historian. According to chart review patient has a history of AFib post ablation in 2020, hypertension, CKD stage IV, pressure ulcer post debridement, osteomyelitis, CHF with an ejection fraction between 40 and 45%, GI bleed in October of 2023 which she underwent ex lap with small-bowel resection and colostomy. Patient presented to the emergency department after becoming tachycardic during imaging outpatient. Patient is currently being treated for sepsis, AFib RVR. Hematology oncology was consulted for rectal cancer. Subjective Difficulty to assess ROS due to fatigue; patient endorses tiredness, some SOB, and abdomen pain Physical Exam: Vitals: BP 135/59 Pulse 116 Temp 36.2 C (97.2 F) (Oral) Resp 20 Ht 162.6 cm (5' 4 ) Wt 96.1 kg (211 lb 13.8 oz) SpO2 98% BMI 36.37 kg/m Body mass index is 36.37 kg/m . Physical Exam Constitutional: General: She is not in acute distress. Appearance: She is ill-appearing. HENT: Head: Normocephalic and atraumatic. Nose: Nose normal. Mouth/Throat: Mouth: Mucous membranes are moist. Cardiovascular: Rate and Rhythm: Tachycardia present. Pulses: Normal pulses. Pulmonary: Effort: Pulmonary effort is normal. Comments: Diminished, o2 on Abdominal: General: Bowel sounds are normal. Palpations: Abdomen is soft. Tenderness: There is abdominal tenderness. Musculoskeletal: General: Normal range of motion. Cervical back: Normal range of motion. Right lower leg: No edema. Left lower leg: No edema. Skin: General: Skin is warm and dry. Neurological: Mental Status: She is alert. Motor: Weakness (generalized) present. Comments: Alert to place, self; disoriented to year states 2003 Past Medical History: Diagnosis Date Arrhythmia Hypertension Injury of back Disc L4 and L5 Obesity Respiratory distress 10/19/2023 Septic shock ([facility]) 12/22/2023 Systolic and diastolic CHF, acute ([facility]) 09/03/2023 Visual impairment Past Surgical History: Procedure Laterality Date APPLICATION WOUND VAC N/A 11/07/2023 Performed by Mitra Crowell MD at [facility] Cardiac catheterization 02/16/2021 Performed by Kelli Su MD at [facility] CARDIAC CATH LABS Caval Tricuspid Isthmus RFA, Carto w/ICE N/A 03/21/2021 Performed by Lurdes Weinberg MD at [facility] HR () COLONOSCOPY POLYPECTOMY N/A 10/23/2023 Performed by Soy Talamantes MD at [facility] Coronary angiogram and left ventricular gram/pressure N/A 02/16/2021 Performed by Kelli Su MD at [facility] CARDIAC CATH LABS Coronary fractional flow reserve N/A 02/16/2021 Performed by Kelli Su MD at [facility] CARDIAC CATH LABS CREATION OF END COLOSTOMY N/A 11/07/2023 Performed by Mitra Crowell MD at [facility] ESOPHAGOGASTRODUODENOSCOPY DIAGNOSTIC N/A 10/23/2023 Performed by Soy Talamantes MD at [facility] EXAM UNDER ANESTHESIA WITH BRECTAL BIOPSY N/A 11/28/2023 Performed by Mitra Crowell MD at [facility] EXAM UNDER ANESTHESIA/RECTAL MASS BIOPSY N/A 10/25/2023 Performed by Mitra Crowell MD at [facility] FLEXIBLE SIGMOIDOSCOPY N/A 10/25/2023 Performed by Mitra Crowell MD at [facility] FLEXIBLE SIGMOIDOSCOPY WITH BIOPSY N/A 11/28/2023 Performed by Mitra Crowell MD at [facility] INSCISIONAL DEBRIDEMENT SACRUM N/A 10/20/2023 Performed by Magdi Matthew MD at [facility] INSERT ARTERIAL LINE 11/05/2023 INSERT ARTERIAL LINE 11/07/2023 Intravascular pressure measurement first vessel each additional vessel (fractional flow reserve) N/A 02/16/2021 Performed by Kelli Su MD at [facility] CARDIAC CATH LABS INTUBATION 11/07/2023 LAPAROTOMY EXPLORATORY N/A 11/07/2023 Performed by Mitra Crowell MD at [facility] MYRINGOTOMY W/ TUBES RESECTION BOWEL SMALL N/A 11/07/2023 Performed by Mitra Crowell MD at [facility] TONSILLECTOMY Family History Problem Relation Age of Onset No Known Problems Mother Heart attack Father Social History Socioeconomic History Marital status: Spouse name: Not on file Number of children: Not on file Years of education: Not on file Highest education level: Not on file Occupational History Not on file Tobacco Use Smoking status: Some Days Types: Cigarettes Smokeless tobacco: Never Tobacco comments: 2 cigarettes a day Vaping Use Vaping Use: Never used Substance and Sexual Activity Alcohol use: Never Drug use: Never Sexual activity: Defer Other Topics Concern Coffee Not Asked Tea Not Asked Carbonated Beverages Not Asked Chocolate Not Asked Caffeine Use Yes Social History Narrative Not on file Social Determinants of Health Financial Resource Strain: Not on file Food Insecurity: Not on file (12/22/2023) Transportation Needs: No Transportation Needs (09/30/2023) PRAPARE - Transportation Lack of Transportation (Medical): No Lack of Transportation (Non-Medical): No Physical Activity: Not on file Stress: Not on file Social Connections: Not on file Interpersonal Safety: Not At Risk (09/30/2023) Humiliation, Afraid, Rape, and Kick questionnaire Fear of Current or Ex-Partner: No Emotionally Abused: No Physically Abused: No Sexually Abused: No Housing Instability: Low Risk (09/30/2023) Housing Instability Housing Instability: No Allergies Allergen Reactions Oats Inpatient scheduled medication: aspirin, 81 mg, oral, Daily atorvastatin, 20 mg, oral, Nightly cefepime (MAXIPIME) IV, 2,000 mg, intravenous, Q12H metoprolol tartrate, 25 mg, oral, BID metroNIDAZOLE, 500 mg, intravenous, Q8H pantoprazole, 40 mg, oral, QAM AC sodium hypochlorite, 1 Application, topical, BID Recent Labs Recent Results (from the past 72 hour(s)) Blood Culture Collection Time: 12/22/23 12:18 PM Specimen: Blood Result Value Ref Range Culture NO GROWTH 1 DAY Blood Culture Collection Time: 12/22/23 12:18 PM Specimen: Blood PICC Result Value Ref Range Culture NO GROWTH 1 DAY Wound culture superficial includes gram stain Collection Time: 12/22/23 12:31 PM Specimen: Wound Swab ABDOMEN Result Value Ref Range Gram Stain Result >25 WHITE BLOOD CELLS/LPF Gram Stain Result 10 to 24 SQUAMOUS EPITHELIAL CELLS/LPF Gram Stain Result RARE GRAM POSITIVE COCCI IN CLUSTERS INTRACELLULAR EXTRACELLULAR Gram Stain Result RARE PLEOMORPHIC GRAM POSITIVE RODS (A) Culture FEW ESCHERICHIA COLI (A) Culture CULTURE IN PROGRESS Susceptibility Escherichia Coli - PRESTON METHOD Ampicillin Resistant AMP/SULBACTAM Resistant Cefazolin* (VIEW NOTES) * CLSI interpretive criteria for nonurinary isolates are as follows: <=2 Susceptible, 4 Intermediate, Resistant >=8. Contact Microbiology laboratory if further susceptibility testing for Cefazolin is required. Ceftriaxone Susceptible Ciprofloxacin Resistant Gentamicin Susceptible Levofloxacin Resistant PIPERACIL/TAZOBACTAM Susceptible Tobramycin Susceptible TRIMETH/SULFAMETHOXAZOLE Resistant CBC auto differential Collection Time: 12/22/23 12:34 PM Result Value Ref Range White Blood Cells 15.9 (H) 4.0 - 11.0 X10E9/L RBC count 2.76 (L) 3.80 - 5.20 X10E12/L Hemoglobin 8.1 (L) 11.7 - 15.5 g/dL Hematocrit 24.3 (L) 35 - 47 % MCV 88 80 - 100 fL MCH 29.5 27 - 34 pg MCHC 33.4 32 - 36 g/dL RDW 18.3 (H) 11.5 - 15.0 % Platelets 197 150 - 450 X10E9/L MPV 9.3 7 - 12 fL % neutrophils 80.6 % % lymphocytes 9.5 % % monocytes 8.4 % % eosinophils 1.3 % % Basophils 0.2 % Neutrophils Absolute (A) 12.8 (H) 1.5 - 6.6 X10E9/L Lymphocytes Absolute 1.5 1.0 - 3.5 X10E9/L Monocytes Absolute 1.3 (H) 0 - 0.9 X10E9/L Eosinophils Absolute 0.2 0.0 - 0.4 X10E9/L Basophils Absolute 0.0 0.0 - 0.2 X10E9/L Basic Metabolic Panel Collection Time: 12/22/23 12:34 PM Result Value Ref Range Sodium 142 134 - 146 mmol/L Potassium, Bld 4.5 3.5 - 5.0 mmol/L Chloride 105 98 - 109 mmol/L CO2 24 22 - 32 mmol/L Anion gap 13 5 - 15 mmol/L BUN 32 (H) 5 - 27 mg/dL Creatinine 1.38 (H) 0.40 - 1.00 mg/dL Glucose 42 (LL) 65 - 99 mg/dL Calcium 7.8 (L) 8.5 - 10.5 mg/dL eGFR (CKD-EPI)non-race dependent 42 (L) >59 ml/min/1.73sq.m Liver panel Collection Time: 12/22/23 12:34 PM Result Value Ref Range Alkaline phosphatase 313 (H) 39 - 130 U/L AST 36 0 - 41 U/L ALT 28 0 - 31 U/L Total Bilirubin 0.6 0.3 - 1.2 mg/dL Bilirubin, direct 0.2 0.0 - 0.4 mg/dL Albumin 2.6 (L) 3.2 - 5.3 g/dL Total Protein 6.5 6.0 - 8.0 g/dL Lipase Collection Time: 12/22/23 12:34 PM Result Value Ref Range Lipase 135 (H) 11 - 82 U/L Lactate w/ Reflex Collection Time: 12/22/23 12:34 PM Result Value Ref Range Lactate w/ Reflex 1.0 0.4 - 2.0 mmol/L Magnesium Collection Time: 12/22/23 12:34 PM Result Value Ref Range Magnesium 1.9 1.8 - 2.6 mg/dL Troponin I Collection Time: 12/22/23 12:34 PM Result Value Ref Range Troponin I 0.04 0.00 - 0.04 ng/mL Ferritin Collection Time: 12/22/23 12:34 PM Result Value Ref Range Ferritin 211 11 - 307 ng/mL POCT creatinine Collection Time: 12/22/23 12:42 PM Result Value Ref Range Portable creatinine 1.4 (H) 0.4 - 1.0 mg/dL eGFR (CKD-EPI)non-race dependent 41 (L) >59 ml/min/1.73sq.m ER Extra Urine Collection Time: 12/22/23 1:26 PM Result Value Ref Range ER Extra Urine ER EXTRA URINE ORDER IN PROCESS ADD ON Urinalysis (if urine dip already complete) Collection Time: 12/22/23 1:26 PM Result Value Ref Range Mucus, UA PRESENT (A) NONE^NONE RBC 3 0 - 5 /hpf WBC 40 (H) 0 - 5 /hpf Urine culture Collection Time: 12/22/23 1:26 PM Specimen: Dasilva Catheter Specimen; Urine Result Value Ref Range Culture (A) >100,000 ORGANISMS/mL ENTEROCOCCUS SPECIES Ampicillin or Amoxicillin is the drug of choice for uncomplicated cystitis caused by enterococci. Cephalosporins are inappropriate. Culture 50,000 to 100,000 ORGANISMS/mL NORMAL URO GENITAL LALY Culture The urine of patients with catheters usually becomes colonized. Treatment may not be indicated. Correlate these findings with clinical presentation. If sepsis is suspected, contact laboratory for reporting AST results. POCT Nursing Urine Macroscopic UA Collection Time: 12/22/23 1:37 PM Result Value Ref Range Specific gravity KALINA 1.020 1.003 - 1.035 Leukocyte esterase KALINA Trace (A) Negative^Negative Nitrite KALINA Negative Negative^Negative Ph 7.0 5.0 - 8.5 Protein KALINA 100 (A) Negative^Negative mg/dL Urine glucose KALINA Negative Negative^Negative mg/dL Ketones KALINA Negative Negative^Negative mg/dL Urobilinogen KALINA 1.0 <1.1 eu/dL Bilirubin KALINA Negative Negative^Negative Hemoglobin KALINA Negative Negative^Negative Bedside Glucose *Place/Obtain serum glucose if >500(>600 MRH) per glucometer. Collection Time: 12/22/23 2:40 PM Result Value Ref Range Bedside glucose 93 65 - 99 mg/dL Bedside Glucose *Place/Obtain serum glucose if >500(>600 MRH) per glucometer. Collection Time: 12/22/23 6:17 PM Result Value Ref Range Bedside glucose 40 (LL) 65 - 99 mg/dL B-type natriuretic peptide Collection Time: 12/22/23 6:41 PM Result Value Ref Range BNP 828 (H) <100.0 pg/mL Erythrocyte Sedimentation Rate (ESR) Collection Time: 12/22/23 6:41 PM Result Value Ref Range Sed Rate 20 0 - 30 mm/h Hemoglobin A1c Collection Time: 12/22/23 6:41 PM Result Value Ref Range Hemoglobin A1C 6.8 (H) 4.4 - 5.6 % Average glucose 148 mg/dL Bedside Glucose *Place/Obtain serum glucose if >500(>600 MRH) per glucometer. Collection Time: 12/22/23 6:51 PM Result Value Ref Range Bedside glucose 81 65 - 99 mg/dL D-Dimer Collection Time: 12/22/23 7:58 PM Result Value Ref Range D-dimer 7,716 (H) <255 ng/mL DDU Protime & INR Collection Time: 12/22/23 7:58 PM Result Value Ref Range Protime 13.8 (H) 9.8 - 13.2 sec Inr 1.2 (H) 0.8 - 1.1 APTT Collection Time: 12/22/23 7:58 PM Result Value Ref Range aPTT >150 (HH) 26 - 37 sec Comprehensive metabolic panel Collection Time: 12/23/23 3:26 AM Result Value Ref Range Sodium 142 134 - 146 mmol/L Potassium, Bld 4.5 3.5 - 5.0 mmol/L Chloride 111 (H) 98 - 109 mmol/L CO2 22 22 - 32 mmol/L Anion gap 9 5 - 15 mmol/L BUN 25 5 - 27 mg/dL Creatinine 1.17 (H) 0.40 - 1.00 mg/dL Glucose 79 65 - 99 mg/dL Calcium 7.1 (L) 8.5 - 10.5 mg/dL Total Protein 6.2 6.0 - 8.0 g/dL Albumin 2.3 (L) 3.2 - 5.3 g/dL Alkaline Phosphatase 261 (H) 39 - 130 U/L AST 33 0 - 41 U/L ALT 23 0 - 31 U/L Total bilirubin 0.5 0.3 - 1.2 mg/dL eGFR (CKD-EPI)non-race dependent 51 (L) >59 ml/min/1.73sq.m Magnesium Collection Time: 12/23/23 3:26 AM Result Value Ref Range Magnesium 1.9 1.8 - 2.6 mg/dL CBC auto differential Collection Time: 12/23/23 3:26 AM Result Value Ref Range White Blood Cells 13.9 (H) 4.0 - 11.0 X10E9/L RBC count 2.81 (L) 3.80 - 5.20 X10E12/L Hemoglobin 8.2 (L) 11.7 - 15.5 g/dL Hematocrit 25.4 (L) 35 - 47 % MCV 90 80 - 100 fL MCH 29.1 27 - 34 pg MCHC 32.2 32 - 36 g/dL RDW 18.6 (H) 11.5 - 15.0 % Platelets 176 150 - 450 X10E9/L MPV 9.3 7 - 12 fL % neutrophils 91.4 % % lymphocytes 6.0 % % monocytes 2.0 % % eosinophils 0.3 % % Basophils 0.3 % Neutrophils Absolute (A) 12.7 (H) 1.5 - 6.6 X10E9/L Lymphocytes Absolute 0.8 (L) 1.0 - 3.5 X10E9/L Monocytes Absolute 0.3 0 - 0.9 X10E9/L Eosinophils Absolute 0.0 0.0 - 0.4 X10E9/L Basophils Absolute 0.0 0.0 - 0.2 X10E9/L Anti XA unfractionated heparin Collection Time: 12/23/23 3:26 AM Result Value Ref Range Heparin anti-xa, unfractionated 0.42 0.30 - 0.70 IU/mL Troponin I Collection Time: 12/23/23 3:26 AM Result Value Ref Range Troponin I 0.58 (HH) 0.00 - 0.04 ng/mL Bedside Glucose *Place/Obtain serum glucose if >500(>600 MRH) per glucometer. Collection Time: 12/23/23 4:23 AM Result Value Ref Range Bedside glucose 79 65 - 99 mg/dL Type and screen Collection Time: 12/23/23 9:30 AM Result Value Ref Range ABO O RH Positive Antibody Screen Negative Hemoglobin and hematocrit, blood Collection Time: 12/23/23 9:45 AM Result Value Ref Range Hemoglobin 7.3 (L) 11.7 - 15.5 g/dL Hematocrit 22.5 (L) 35 - 47 % Anti XA unfractionated heparin Collection Time: 12/23/23 9:45 AM Result Value Ref Range Heparin anti-xa, unfractionated 0.31 0.30 - 0.70 IU/mL Troponin I Collection Time: 12/23/23 9:45 AM Result Value Ref Range Troponin I 0.34 (H) 0.00 - 0.04 ng/mL Bedside Glucose *Place/Obtain serum glucose if >500(>600 MRH) per glucometer. Collection Time: 12/23/23 9:57 AM Result Value Ref Range Bedside glucose 98 65 - 99 mg/dL Bedside Glucose *Place/Obtain serum glucose if >500(>600 MRH) per glucometer. Collection Time: 12/23/23 12:23 PM Result Value Ref Range Bedside glucose 104 (H) 65 - 99 mg/dL Bedside Glucose *Place/Obtain serum glucose if >500(>600 MRH) per glucometer. Collection Time: 12/23/23 2:16 PM Result Value Ref Range Bedside glucose 88 65 - 99 mg/dL Troponin I Collection Time: 12/23/23 2:38 PM Result Value Ref Range Troponin I 0.33 (H) 0.00 - 0.04 ng/mL Glucose random or fasting Collection Time: 12/23/23 2:38 PM Result Value Ref Range Glucose 97 65 - 99 mg/dL Blood gas, venous Collection Time: 12/23/23 2:41 PM Result Value Ref Range Sample Type VENOUS Body Temp 37.0 37.0 C pH, Venous 7.437 (H) 7.320 - 7.420 PCO2, Venous 26.9 (L) 35 - 50 MMHG PO2, Venous 29 (L) 30 - 50 MMHG Base,Deficit 5.0 (H) 0.0 - 2.0 MMOL/L Portable HCO3 18.1 (L) 20.0 - 24.0 MMOL/L % O2 Sat 58.0 (L) >80.0 % Ronnie's Test NA SPO2 100 % Sample Site N/A Insp. O2 Conc. 28 % Oxygen Source NC Hemoglobin and hematocrit, blood Collection Time: 12/23/23 5:35 PM Result Value Ref Range Hemoglobin 8.1 (L) 11.7 - 15.5 g/dL Hematocrit 24.5 (L) 35 - 47 % Bedside Glucose *Place/Obtain serum glucose if >500(>600 MRH) per glucometer. Collection Time: 12/23/23 5:47 PM Result Value Ref Range Bedside glucose 116 (H) 65 - 99 mg/dL Bedside Glucose *Place/Obtain serum glucose if >500(>600 MRH) per glucometer. Collection Time: 12/23/23 8:48 PM Result Value Ref Range Bedside glucose 104 (H) 65 - 99 mg/dL Occult blood x 1, stool Collection Time: 12/23/23 9:30 PM Result Value Ref Range Occult blood Negative Negative^Negative Comprehensive metabolic panel Collection Time: 12/24/23 5:20 AM Result Value Ref Range Sodium 144 134 - 146 mmol/L Potassium, Bld 4.0 3.5 - 5.0 mmol/L Chloride 115 (H) 98 - 109 mmol/L CO2 19 (L) 22 - 32 mmol/L Anion gap 10 5 - 15 mmol/L BUN 27 5 - 27 mg/dL Creatinine 1.17 (H) 0.40 - 1.00 mg/dL Glucose 99 65 - 99 mg/dL Calcium 6.8 (LL) 8.5 - 10.5 mg/dL Total Protein 6.0 6.0 - 8.0 g/dL Albumin 2.3 (L) 3.2 - 5.3 g/dL Alkaline Phosphatase 198 (H) 39 - 130 U/L AST 23 0 - 41 U/L ALT 18 0 - 31 U/L Total bilirubin 0.5 0.3 - 1.2 mg/dL eGFR (CKD-EPI)non-race dependent 51 (L) >59 ml/min/1.73sq.m CBC auto differential Collection Time: 12/24/23 5:20 AM Result Value Ref Range White Blood Cells 17.9 (H) 4.0 - 11.0 X10E9/L RBC count 2.72 (L) 3.80 - 5.20 X10E12/L Hemoglobin 7.9 (L) 11.7 - 15.5 g/dL Hematocrit 24.4 (L) 35 - 47 % MCV 90 80 - 100 fL MCH 29.1 27 - 34 pg MCHC 32.5 32 - 36 g/dL RDW 18.1 (H) 11.5 - 15.0 % Platelets 211 150 - 450 X10E9/L MPV 8.9 7 - 12 fL % neutrophils 82.5 % % lymphocytes 10.3 % % monocytes 6.4 % % eosinophils 0.5 % % Basophils 0.3 % Neutrophils Absolute (A) 14.8 (H) 1.5 - 6.6 X10E9/L Lymphocytes Absolute 1.8 1.0 - 3.5 X10E9/L Monocytes Absolute 1.1 (H) 0 - 0.9 X10E9/L Eosinophils Absolute 0.1 0.0 - 0.4 X10E9/L Basophils Absolute 0.1 0.0 - 0.2 X10E9/L Anti XA unfractionated heparin Collection Time: 12/24/23 5:20 AM Result Value Ref Range Heparin anti-xa, unfractionated 0.42 0.30 - 0.70 IU/mL Ionized calcium Collection Time: 12/24/23 8:15 AM Result Value Ref Range Calcium, ionized 4.2 (L) 4.5 - 5.3 mg/dL Recent Imaging: X-ray chest 1 view Result Date: 12/23/2023 Narrative: XR CHEST 1 VW History: Short of breath. One view study. Comparison: 12/22/2023 and 11/30/2023 Impression: * No significant interval change.Cardiac silhouette remains grossly enlarged but unchanged. This may represent cardiomegaly and/or pericardial effusion. Chronic elevation the right hemidiaphragm is noted. Unchanged left PICC line. No acute pulmonary process is seen. No large effusion is noted Finalized by Yany Vargas MD on 12/23/2023 2:11 PM Vas venous duplex lwr bilateral Result Date: 12/23/2023 Narrative: Right: Lower extremity deep veins are compressible with spontaneous phasic spectral Doppler waveforms; superficial veins are compressible without intraluminal content. Left: Lower extremity deep veins are compressible with spontaneous phasic spectral Doppler waveforms; superficial veins are compressible without intraluminal content. General: Incidental finding of left nodular mass without color flow in the groin. Conclusions: BILATERAL: NO EVIDENCE of deep or superficial vein thrombosis of the lower extremities. LEFT:Incidental finding may warrant further investigation Recommendations: Any questions prior to finalization, please call the reading physician during normal business hours at the phone number beside their name. Ultrasound abdomen limited Result Date: 12/22/2023 Narrative: US ABDOMEN LMTD HISTORY: Cholecystitis COMPARISON: CT abdomen and pelvis today PROCEDURE: Real-time grayscale ultrasound and limited color flow performed. FINDINGS: Liver demonstrate normal echogenicity. No discrete masses visualized. MPV demonstrates low velocity flow of 11.3 cm/s. Common bile duct is nondilated, measuring 4 mm. Gallbladder wall thickness is within normal limits. The gallbladder is diffusely distended with layering internal debris, sludge. No shadowing echogenic foci. Negative sonographic Andre's sign. The visualized portions of the pancreas are within normal limits. Trace fluid seen adjacent to the right hepatic lobe. IMPRESSION: * Gallbladder distention with internal debris/sludge. No gallbladder wall thickening to suggest acute cholecystitis. Finalized by Gracie Ontiveros MD on 12/22/2023 6:[address] chest with contrast Result Date: 12/22/2023 Narrative: CLINICAL STATEMENT: Colon cancer, assess response to treatment, sepsis COMPARISON: 11/07/2023 TECHNIQUE: Axial views were obtained from the lung apices to the lung bases following the uneventful administration of 100 mL IV contrast. Coronal and sagittal MPR reconstructions were performed. FINDINGS: The visualized portion of the thyroid gland is stable, possible underlying small cysts or nodules. Interval resolution of the bilateral small pleural effusions. There is now residual posterior dependent atelectatic changes. Atelectasis versus groundglass opacity of the left lung apex (image 21 of 87) which measures up to 1.4 cm in diameter. No new solid pulmonary nodules. Precarinal mediastinal lymph node measures 11 x 12 mm, previously 8 x 9 mm. The ascending aorta, the aortic arch, and the descending aorta show demonstrate no aneurysmal dilatation. Moderate calcifications of the aortic arch. Normal three-vessel branching pattern. The pulmonary arteries show no large proximal filling defects. Pulmonary arteries are not enlarged. The heart is normal in size and morphology. Multivessel severe coronary artery calcifications. SVC appears normal. The esophagus, the trachea, and the main bronchi show no definite abnormality. Abdominal findings discussed on CT abd pelvis performed concurrently. IMPRESSION: * There is a new focal opacity of the left lung apex pleural. This may represent focal infectious or atelectatic infiltrate though developing groundglass or solid nodule cannot be excluded. Recommend 3 month follow-up. * Slight increased size of a precarinal mediastinal node which measures 12 mm, previously 9 mm. Change in size could be reactive or metastatic, continued follow-up recommended. * No new solid pulmonary nodes. * Resolution of previous bilateral effusions. * Stable cardiomegaly and multivessel coronary artery calcifications. Finalized by Gracie Ontiveros MD on 12/22/2023 3:[address] abdomen and pelvis with contrast Result Date: 12/22/2023 Narrative: CLINICAL INFORMATION: Sepsis; Metastatic disease evaluation; Colon cancer, staging; hx colon ca, tachy, hypotensive, abdominal wall wound with sri pus. COMPARISON: 11/07/2023 TECHNIQUE: CT of the abdomen and pelvis with intravenous contrast. FINDINGS: LOWER CHEST: Interpreted separately. LIVER AND BILIARY: Distended gallbladder with periportal edema. No suspicious focal liver lesion. PANCREAS: Within normal limits. SPLEEN: Within normal limits. ADRENALS: Within normal limits. KIDNEYS, URETERS, AND BLADDER: Symmetric enhancement. No suspicious lesion or hydronephrosis. Bladder gas with indwelling Dasilva catheter. GI TRACT AND PERITONEUM: Prior heart and stomach. Left lower quadrant colostomy. No postoperative obstruction. Thickened rectum/anal canal. Presumed endoscopy clips in the cecum; correlate with any recent intervention. Prior small bowel resection the right lower quadrant. Nonvisualized appendix. No free air. Small volume free fluid VASCULATURE: Normal caliber aorta. Advanced atherosclerosis of the SMA, poorly characterize given technique. LYMPH NODES: Within normal limits. REPRODUCTIVE ORGANS: No asymmetry. MUSCULOSKELETAL: Soft tissue defect over the sacrum, approximately 2 cm with skin thickening and inflammation, likely extending to the sacrum. Osteopenia. No acute osseous abnormality. IMPRESSION: 1. Distended gallbladder with periportal edema. Correlate with LFTs/right upper quadrant pain. Consider ultrasound follow-up. 2. Large sacral decubitus soft tissue ulcer. Underlying osteomyelitis not excluded. 3. Nonspecific thickening of the rectum/anal canal. 4. Additional findings as above All CT scans at this facility use dose modulation, iterative reconstruction, and/or weight based dosing when appropriate to reduce radiation dose to as low as reasonably achievable. Finalized by Krystal Crowley MD on 12/22/2023 3:01 PM X-ray chest 1 view Result Date: 12/22/2023 Narrative: Portable chest: HISTORY: Cough and sepsis. Single view the chest was obtained. Cardiac silhouette is enlarged but unchanged. Pulmonary vasculature is congested. No pneumothorax seen. Central line tip in the region of the SVC. IMPRESSION: Cardiomegaly and vascular congestion. Finalized by Ray Vo MD on 12/22/2023 1:52 PM MR abdomen without contrast Result Date: 12/22/2023 Narrative: History: Rectal cancer. Metastatic survey. Exam/Technique: Multiplanar, multisequence MR imaging is obtained of the abdomen without intravenous contrast. The patient was unable to tolerate the full extent of the examination and an appreviated protocol was obtained. Comparison: CT abdomen 11/07/2019 Findings: Gallbladder is moderately distended with dependent sludge possible small stones. This is exerting some mass effect on the common bile duct or no ductal dilatation demonstrated. Pancreas and pancreatic duct appear to be within normal limits. No acute liver, spleen or adrenal pathology demonstrated. Kidneys show no evidence hydronephrosis. Left lower quadrant ostomy partially visualized without gross complication. IMPRESSION: * Abbreviated MRI due to patient claustrophobia. * Moderate gallbladder distention with sludge and potentially small stones. No acute findings otherwise. Finalized by Jamie Lester DO on 12/22/2023 12:53 PM X-ray chest 1 view Result Date: 11/30/2023 Narrative: HISTORY: A 68-year-old female with the history of the PICC line placement. TECHNIQUE: Portable semierect AP view of chest: One view COMPARISON: Comparison is made with the chest radiograph of the 11/29/2023. FINDINGS: Examination is compromised due to poor inspiratory effort and patient's body habitus. There has been interval replacement of the PICC line through the left upper extremity approach with its tip at the junction of the superior vena cava and right atrium. There is minimal atelectasis in the right midlung field. There is a mild vascular congestion. No pneumothorax is identified. Costophrenic angles are clear. Heart is enlarged. There are aortic calcifications. Trachea is in midline. Hemidiaphragms are normal in position. IMPRESSION: * PICC line through the left upper extremity approach with its tip at the junction of the superior vena cava and right atrium. * No evidence of pneumothorax. * Mild vascular congestion and minimal right midlung field atelectasis. Finalized by Edvin Weinberg MD on 11/30/2023 4:13 PM Fluoroscopy swallow motility function Result Date: 11/30/2023 Narrative: FL SWALLOW MOTILITY FUNCTION INDICATION: Oropharyngeal dysphagia COMPARISON: FL swallow study 11/23/2023 TECHNIQUE: Video fluoroscopic swallow study was performed in conjunction with speech pathologist. Barium contrast materials of varying consistencies administered. FINDINGS: Fluoroscopy time: 1:30 minutes Dose (Reference air kerma): 3.61 mGy Thin: Penetration. Mildly thick: Penetration with cup. Applesauce: No penetration or aspiration. IMPRESSION: * Penetration with thin liquids. Penetration mildly thick liquids by cup. * Please correlate with dedicated speech pathology report for additional details and recommendations. Approved by Resident: Murphy Menon MD on 11/30/2023 11:00 AM Favio Lang DO have personally reviewed the image(s) and agree with and/or edited the report Finalized by Favio Payne DO on 11/30/2023 11:12 AM X-ray chest 1 view Result Date: 11/29/2023 Narrative: XR CHEST 1 VW HISTORY: Shortness of breath COMPARISON: Chest radiograph 11/21/2023 and 11/20/2023 TECHNIQUE: AP portable upright view. obtained. FINDINGS: Right-sided PICC line with tip overlying expected location of the SVC. Stable enlarged heart size. Mild bronchovascular crowding and interstitial edema. Bibasilar atelectasis. No focal consolidation. No pneumothorax or large pleural effusion. IMPRESSION: * Mild vascular congestion and interstitial edema. * Bibasilar atelectasis without focal consolidation. Approved by Resident Sonya Wright MD on 11/29/2023 5:33 PM Krystal Lang MD have personally reviewed the image(s) and agree with and/or edited the report Finalized by Krystal Anderson MD on 11/29/2023 5:43 PM Diagnosis Problem list: Patient Active Problem List Diagnosis Cerumen debris on tympanic membrane of both ears Typical atrial flutter (CMS-HCC) Coronary artery disease involving [place] coronary artery of [place] heart without angina pectoris Tachycardia induced cardiomyopathy (CMS-HCC) Type 2 diabetes mellitus with circulatory disorder, without long-term current use of insulin (CMS-HCC) Other hyperlipidemia Paroxysmal atrial fibrillation (CMS-HCC) BRANDEE (acute kidney injury) (CMS-HCC) Hyperkalemia Bilateral lower extremity edema Systolic and diastolic CHF, acute (CMS-HCC) Acute kidney injury (CMS-HCC) Acute UTI (urinary tract infection) Skin ulcer of sacrum (CMS-HCC) Altered mental status Hypokalemia CKD (chronic kidney disease) stage 4, GFR 15-29 ml/min (CMS-HCC) Bacteremia Respiratory distress Myoclonus Pressure injury of sacral region, stage 4 (CMS-HCC) Anemia Anemia, blood loss ISTAP type 2 skin tear of right forearm ISTAP type 3 skin tear of right forearm Moderate protein-calorie malnutrition (CMS-HCC) Septic shock (CMS-HCC) Assessment/Plan #Distal rectal mass, with biopsy from 11/28/23 noting adenocarcinoma - EGD/colonoscopy 10/23/2023 - 10/25/2023 EUA with flexible sigmoidoscopy and biopsy of rectal mass - 11/07/23 ex lap with SBR, anastomosis, and end sigmoid colostomy creation with intra-operative evidence of bowel ischemia - Repeat flexible sigmoidoscopy with biopsy on 11/28/2023 for presumed GI bleed with rectal mass, previous biopsies were non diagnostic - 11/28/23 Surgical Pathology: Final Pathologic Diagnosis 1. Rectal mass, biopsies: Fragments of tubulovillous adenoma. 2. Rectal mass #2, excisional biopsy: Fragments of ADENOCARCINOMA, at least intramucosal carcinoma. Deeper invasion cannot be excluded. Plan: - We would recommend MRI Rectal w/ contrast to be completed, however, given her CKD would want nephrology on board to give recommendations on IV contrast - Reviewed Cts from 12/22/23: - 12/22/23 CT A/P: IMPRESSION: 1. Distended gallbladder with periportal edema. Correlate with LFTs/right upper quadrant pain. Consider ultrasound follow-up. 2. Large sacral decubitus soft tissue ulcer. Underlying osteomyelitis not excluded. 3. Nonspecific thickening of the rectum/anal canal. 4. Additional findings as above - 12/22/23 CT Chest: IMPRESSION:* There is a new focal opacity of the left lung apex pleural. This may represent focal infectious or atelectatic infiltrate though developing groundglass or solid nodule cannot be excluded. Recommend 3 month follow-up.* Slight increased size of a precarinal mediastinal node which measures 12 mm, previously 9 mm. Change in size could be reactive or metastatic, continued follow-up recommended.* No new solid pulmonary nodes.* Resolution of previous bilateral effusions.* Stable cardiomegaly and multivessel coronary artery calcifications - Transfusion Parameters: Hgb < 7 and Plts < 10,000, unless active bleeding transfuse Plts < 20,000 - Oncology will continue following at this time VTE Prophylaxis: Heparin infusion GI Prophylaxis: PPI Code Status: Full Code Further medical management of comorbid conditions per primary team and consulting services, appreciate assistance The patient was seen and examined and all plans and orders were agreed upon with the attending physician on service today, Dr. Langston Thank you for the consultation. Mendy Nielsen APRN CNP [facility] [address] [place] [address] December 24, 2023, 9:29 AM Please note that portions of this note were generated using voice recognition [employer] dictation software. Although every effort was made to ensure the accuracy of this automated workforce management manager, some errors in workforce management manager may have occurred. NICOLAS Yao 12/24/23 9315 I have personally performed a face to face evaluation of this patient independently of NICOLAS Yao. I have reviewed the assessment findings and plan as documented in her note and made all necessary revisions. I have reviewed lab and imaging data independently. My additional findings and orders are as follows: 68-year-old female with rectal cancer. Recommend MRI for further staging/evaluation. RACQUEL LANGSTON MD Associated Order(s): CONSULT WOUND CARE SERVICES Images from the original note were not included. Wound Care Consult Note Patient: Harris Castrejon Date of Admission: 12/22/2023 12:03 PM Request for Consult: Sacral and abdominal wound PCP: Carol Akins PA-C Admitted Chief Complaint: Chief Complaint Patient presents with Atrial Fibrillation Subjective/HPI: History of Present Illness: Harris Castrejon is a 68 y.o. former cigarette smoker female who presented with hypotension and tachycardia. Past medical history includes CHF, A fib, T2DM, CAD, CKD 4, Stage IV pressure ulcer sacrum, and recent small bowel resection / colostomy placement. Wound care consulted for chronic stage 4 sacral pressure ulcer and abdominal incision that started prior to admission. PMH: Past Medical History: Diagnosis Date Arrhythmia Hypertension Injury of back Disc L4 and L5 Obesity Respiratory distress 10/19/2023 Septic shock ([facility]) 12/22/2023 Systolic and diastolic CHF, acute ([facility]) 09/03/2023 Visual impairment PSH: Past Surgical History: Procedure Laterality Date APPLICATION WOUND VAC N/A 11/07/2023 Performed by Mitra Crowell MD at [facility] Cardiac catheterization 02/16/2021 Performed by Kelli Su MD at [facility] CARDIAC CATH LABS Caval Tricuspid Isthmus RFA, Carto w/ICE N/A 03/21/2021 Performed by Lurdes Weinberg MD at [facility] AT [facility] () COLONOSCOPY POLYPECTOMY N/A 10/23/2023 Performed by Soy Talamantes MD at [facility] Coronary angiogram and left ventricular gram/pressure N/A 02/16/2021 Performed by Kelli Su MD at [facility] CARDIAC CATH LABS Coronary fractional flow reserve N/A 02/16/2021 Performed by Kelli Su MD at [facility] CARDIAC CATH LABS CREATION OF END COLOSTOMY N/A 11/07/2023 Performed by Mitra Crowell MD at [facility] ESOPHAGOGASTRODUODENOSCOPY DIAGNOSTIC N/A 10/23/2023 Performed by Soy Talamantes MD at [facility] EXAM UNDER ANESTHESIA WITH BRECTAL BIOPSY N/A 11/28/2023 Performed by Mitra Crowell MD at [facility] EXAM UNDER ANESTHESIA/RECTAL MASS BIOPSY N/A 10/25/2023 Performed by Mitra Crowell MD at [facility] FLEXIBLE SIGMOIDOSCOPY N/A 10/25/2023 Performed by Mitra Crowell MD at [facility] FLEXIBLE SIGMOIDOSCOPY WITH BIOPSY N/A 11/28/2023 Performed by Mitra Crowell MD at [facility] INSCISIONAL DEBRIDEMENT SACRUM N/A 10/20/2023 Performed by Magdi Matthew MD at [facility] INSERT ARTERIAL LINE 11/05/2023 INSERT ARTERIAL LINE 11/07/2023 Intravascular pressure measurement first vessel each additional vessel (fractional flow reserve) N/A 02/16/2021 Performed by Kelli Su MD at [facility] CARDIAC CATH LABS INTUBATION 11/07/2023 LAPAROTOMY EXPLORATORY N/A 11/07/2023 Performed by Mitra Crowell MD at [facility] MYRINGOTOMY W/ TUBES RESECTION BOWEL SMALL N/A 11/07/2023 Performed by Mitra Crowell MD at [facility] TONSILLECTOMY Allergies: Allergies Allergen Reactions Oats Home Meds: Medications Prior to Admission Medication Sig Dispense Refill Last Dose acetaminophen (TYLENOL EXTRA STRENGTH) 500 mg tablet Take 2 tablets (1,000 mg total) by mouth every 6 (six) hours as needed for pain, headaches or fever. Past Week bumetanide (BUMEX) 2 mg tablet Take 1 tablet (2 mg total) by mouth daily. Past Week digoxin (LANOXIN) 125 mcg tablet Take 1 tablet (125 mcg total) by mouth in the morning. Past Week dilTIAZem CD (CARDIZEM CD) 180 mg 24 hr capsule Take 1 capsule (180 mg total) by mouth in the morning. Past Week insulin glargine (LANTUS, SEMGLEE) 100 unit/mL (3 mL) insulin pen Inject 10 Units under the skin in the morning and 10 Units before bedtime. Past Week ipratropium (ATROVENT) 0.02 % nebulizer solution Inhale 2.5 mL (0.5 mg total) by nebulization 4 (four) times a day as needed for wheezing or shortness of breath. Past Week levalbuterol (XOPENEX) 0.63 mg/3 mL nebulizer solution Inhale 3 mL (0.63 mg total) by nebulization every 6 (six) hours as needed for wheezing or shortness of breath. Past Week magnesium oxide (MAGOX) 400 mg tablet Take 1 tablet (400 mg total) by mouth in the morning and 1 tablet (400 mg total) before bedtime. Past Week megestroL (MEGACE) 400 mg/10 mL (10 mL) suspension Take 10 mL (400 mg total) by mouth in the morning. Past Week metoprolol tartrate (LOPRESSOR) 10 mg/mL suspension Take 2.5 mL (25 mg total) by mouth in the morning and 2.5 mL (25 mg total) before bedtime. Past Week midodrine (PROAMATINE) 5 mg tablet Take 1 tablet (5 mg total) by mouth 3 (three) times a day. Past Week omeprazole magnesium (PriLOSEC) 10 mg susp,delayed release for recon suspension Take 20 mg by mouth in the morning. Past Week sertraline (ZOLOFT) 50 mg tablet Take 1 tablet (50 mg total) by mouth in the morning. Past Week fat jslt-svq-qyc-oliv-fish oil, SMOFLIPID, 20 % emulsion infusion Infuse 200 mL (40 g total) into a venous catheter in the morning. heparin lock flush, porcine, 10 unit/mL injection Infuse 1-5 mL (10-50 Units total) into a venous catheter as needed (line care per nursing agency protocol.). 1 mL 0 heparin lock flush, porcine, injection 100 unit/mL solution Infuse 1-5 mL (100-500 Units total) into a venous catheter as needed (line care per nursing agency protocol.). 1 mL 0 TPN FOR DISCHARGE See most recent TPN order. Flush IV line with heparin and/or normal saline per agency protocol. Social History: Social History Socioeconomic History Marital status: Spouse name: Not on file Number of children: Not on file Years of education: Not on file Highest education level: Not on file Occupational History Not on file Tobacco Use Smoking status: Some Days Types: Cigarettes Smokeless tobacco: Never Tobacco comments: 2 cigarettes a day Vaping Use Vaping Use: Never used Substance and Sexual Activity Alcohol use: Never Drug use: Never Sexual activity: Defer Other Topics Concern Coffee Not Asked Tea Not Asked Carbonated Beverages Not Asked Chocolate Not Asked Caffeine Use Yes Social History Narrative Not on file Social Determinants of Health Financial Resource Strain: Not on file Food Insecurity: Not on file (12/22/2023) Transportation Needs: No Transportation Needs (09/30/2023) PRAPARE - Transportation Lack of Transportation (Medical): No Lack of Transportation (Non-Medical): No Physical Activity: Not on file Stress: Not on file Social Connections: Not on file Interpersonal Safety: Not At Risk (09/30/2023) Humiliation, Afraid, Rape, and Kick questionnaire Fear of Current or Ex-Partner: No Emotionally Abused: No Physically Abused: No Sexually Abused: No Housing Instability: Low Risk (09/30/2023) Housing Instability Housing Instability: No Family History: Family History Problem Relation Age of Onset No Known Problems Mother Heart attack Father I have personal reviewed past medical history including surgeries, social history, and family history. I have also reviewed allergies and home medications. They are documented in this note to their detail, and if there are none noted, they will further indicate no pertinent history. Review of Systems Review of Systems Constitutional: Negative for appetite change and fatigue. HENT: Negative for rhinorrhea and sore throat. Eyes: Negative for redness and itching. Respiratory: Negative for cough and shortness of breath. Cardiovascular: Negative for chest pain and leg swelling. Gastrointestinal: Positive for abdominal pain (wound pain). Ostomy Musculoskeletal: Negative for arthralgias and joint swelling. Skin: Positive for wound. Negative for rash. Neurological: Negative for light-headedness and headaches. Objective: Physical Exam Vital Signs: BP 140/90 Pulse (!) 122 Temp 36.3 C (97.3 F) (Oral) Resp 24 Ht 162.6 cm (5' 4 ) Wt 92.1 kg (203 lb 0.7 oz) SpO2 99% BMI 34.85 kg/m Pain: Pain Assessment: Unable to self-report Pain Score: 5 Pain Location: Abdomen, Coccyx, Chest Pain Descriptors: Aching, Discomfort Pain Type: Acute pain Patient's Stated Pain Goal: No pain Physical Exam Constitutional: Appearance: She is not ill-appearing or toxic-appearing. Eyes: General: No scleral icterus. Conjunctiva/sclera: Conjunctivae normal. Cardiovascular: Pulses: Radial pulses are 2+ on the right side and 2+ on the left side. Pulmonary: Comments: NC O2, increased respiratory effort Abdominal: General: There is no distension. Palpations: Abdomen is soft. Comments: Midline abdominal incision, left sided ostomy Musculoskeletal: Right lower leg: No edema. Left lower leg: No edema. Skin: General: Skin is warm. Findings: Wound (detailed below) present. No rash. Wound Assessment: Type of Wound/Aetiology: surgical wound Location: abdomen Measurement: 10 x 4 x 0.9 Undermining: none Tunneling: none Severity: fat-layer exposed Drainage/Exudate/Odor: mild and moderate serosanguineous no odor Wound bed: granulation Wound Edges: attached Periwound: intact Location: sacral region Type of Wound/Etiology/Severity: pressure injury/ulcer, Stage 4 Measurement: 8.9 cm x 11.3 cm x 3.2 cm - Undermining/tunneling: positional undermining only Drainage/Exudate/Odor: mild to moderate serous and serosanguineous no odor Wound bed: slough and granulation, bone exposed Wound Edges: open and undermining Periwound: intact Studies Reviewed: Labs: Results from last 7 days Lab Units 12/23/23 0945 12/23/23 0326 12/22/23 1234 WBC X10E9/L -- 13.9* 15.9* HEMOGLOBIN g/dL 7.3* 8.2* 8.1* HEMATOCRIT % 22.5* 25.4* 24.3* MCV fL -- 90 88 PLATELETS X10E9/L -- 176 197 Results from last 7 days Lab Units 12/23/23 1438 12/23/23 1416 12/23/23 1223 12/23/23 0957 12/23/23 0423 12/23/23 0326 12/22/23 1440 12/22/23 1242 12/22/23 1234 POTASSIUM mmol/L -- -- -- -- -- 4.5 -- -- 4.5 CALCIUM mg/dL -- -- -- -- -- 7.1* -- -- 7.8* CO2 mmol/L -- -- -- -- -- 22 -- -- 24 BUN mg/dL -- -- -- -- -- 25 -- -- 32* CREATININE mg/dL -- -- -- -- -- 1.17* -- -- 1.38* POC CREATININE mg/dL -- -- -- -- -- -- -- 1.4* -- BEDSIDE GLUCOSE mg/dL -- 88 104* 98 79 -- < > -- -- GLUCOSE mg/dL 97 -- -- -- -- 79 -- -- 42* < > = values in this interval not displayed. Results from last 7 days Lab Units 12/22/23 1958 INR 1.2* PROTIME sec 13.8* APTT sec >150* Results from last 7 days Lab Units 12/23/23 0326 12/22/23 1234 ALT U/L 23 28 AST U/L 33 36 ALK PHOS U/L 261* -- Results from last 7 days Lab Units 12/22/23 1234 LIPASE U/L 135* Microbiology Results Procedure Component Value Units Date/Time Urine culture [[id number]] (Abnormal) Collected: 12/22/23 1326 Specimen: Urine from Dasilva Catheter Specimen Updated: 12/23/23 1319 Culture >100,000 ORGANISMS/mL ENTEROCOCCUS SPECIES Ampicillin or Amoxicillin is the drug of choice for uncomplicated cystitis caused by enterococci. Cephalosporins are inappropriate. 50,000 to 100,000 ORGANISMS/mL NORMAL URO GENITAL LALY The urine of patients with catheters usually becomes colonized. Treatment may not be indicated. Correlate these findings with clinical presentation. If sepsis is suspected, contact laboratory for reporting AST results. Wound culture superficial includes gram stain [[id number]] (Abnormal) Collected: 12/22/23 1231 Specimen: Wound Swab Updated: 12/23/23 1124 Gram Stain Result >25 WHITE BLOOD CELLS/LPF 10 to 24 SQUAMOUS EPITHELIAL CELLS/LPF RARE GRAM POSITIVE COCCI IN CLUSTERS INTRACELLULAR EXTRACELLULAR RARE PLEOMORPHIC GRAM POSITIVE RODS Culture FEW ESCHERICHIA COLI CULTURE IN PROGRESS Blood Culture [[id number]] Collected: 12/22/23 1218 Specimen: Blood Updated: 12/23/23 1303 Culture NO GROWTH 1 DAY Blood Culture [[id number]] Collected: 12/22/23 1218 Specimen: Blood Updated: 12/23/23 1303 Culture NO GROWTH 1 DAY Imaging: X-ray chest 1 view Result Date: 12/23/2023 XR CHEST 1 VW History: Short of breath. One view study. Comparison: 12/22/2023 and 11/30/2023 Impression: * No significant interval change.Cardiac silhouette remains grossly enlarged but unchanged. This may represent cardiomegaly and/or pericardial effusion. Chronic elevation the right hemidiaphragm is noted. Unchanged left PICC line. No acute pulmonary process is seen. No large effusion is noted Finalized by Yany Vargas MD on 12/23/2023 2:11 PM Vas venous duplex lwr bilateral Result Date: 12/23/2023 Right: Lower extremity deep veins are compressible with spontaneous phasic spectral Doppler waveforms; superficial veins are compressible without intraluminal content. Left: Lower extremity deep veins are compressible with spontaneous phasic spectral Doppler waveforms; superficial veins are compressible without intraluminal content. General: Incidental finding of left nodular mass without color flow in the groin. Conclusions: BILATERAL: NO EVIDENCE of deep or superficial vein thrombosis of the lower extremities. LEFT:Incidental finding may warrant further investigation Recommendations: Any questions prior to finalization, please call the reading physician during normal business hours at the phone number beside their name. Ultrasound abdomen limited Result Date: 12/22/2023 US ABDOMEN LMTD HISTORY: Cholecystitis COMPARISON: CT abdomen and pelvis today PROCEDURE: Real-time grayscale ultrasound and limited color flow performed. FINDINGS: Liver demonstrate normal echogenicity. No discrete masses visualized. MPV demonstrates low velocity flow of 11.3 cm/s. Common bile duct is nondilated, measuring 4 mm. Gallbladder wall thickness is within normal limits. The gallbladder is diffusely distended with layering internal debris, sludge. No shadowing echogenic foci. Negative sonographic Andre's sign. The visualized portions of the pancreas are within normal limits. Trace fluid seen adjacent to the right hepatic lobe. IMPRESSION: * Gallbladder distention with internal debris/sludge. No gallbladder wall thickening to suggest acute cholecystitis. Finalized by Gracie Ontiveros MD on 12/22/2023 6:18 PM Assessment/Plan/Education: Principal Problem: Septic shock (CMS-HCC) Active Problems: Pressure injury of sacral region, stage 4 (CMS-HCC) Pressure ulcer sacrum Cleanse wound with wound cleanser, pat dry/ apply no sting barrier wipe to to brant wound skin. Apply 1/4 strength Dakins moist gauze to wound bed (pack into deepest part of wound to fill void) Cover with ABD and secure with medfix tape. Change dressing 2x daily and as needed if soiled. Abdominal incision Cleanse wound with mild soap and water, pat dry. Apply opticell silver to wound bed (cut to fit), cover with ABD, secure with medfix tape. Change daily and as needed if soiled Dressing/Skin Care/Edema Management/Offloading: - continue specialty bed AIDAN/pressure redistribution - turn and reposition minimally every 2 hours - pad and protect bony prominences - moisturize dry skin, do not massage vigorously - elevate bilateral lower extremities and float heels - elevate upper extremities on pillows - continue bilateral waffle boots Antibiotics: per primary Studies: reviewed in EMR Medical Management: per primary team Wound care will continue to follow while inpatient. Thank you for allowing us to participate in the care of this patient. Please feel free to call us with any questions or concerns. FELISA STEPHENS MD [facility] Sat-Sat 8a-3p [phone] - pager M--3p Secure Chat preferred & fastest response time Needs outside these hours please contact the reciprocating department: general surgery, vascular surgery, ortho or podiatry. Thank you! Associated attestation - Carmina Beasley MD - 12/23/2023 5:37 PM EDT Attending Physician Statement I have personally reviewed the patient's history, examined the patient and reviewed the pertinent studies.I have discussed with the resident or advanced practice provider. I agree with the assessment, plan and orders as documented by the resident or advanced practice provider . Any differences are documented. Carmina Beasley MD 12/23/2023 5:37 PM Associated Order(s): IP CONSULT TO PULMONOLOGY Images from the original note were not included. ____ ACADEMIC PULMONARY CONSULT NOTE Date of Admission: 12/22/2023 12:03 PM Chief complaint: Malaise Referring Physician: * No referring provider recorded for this case * PCP: Carol Akins PA-C History of Present Illness: Harris Castrejon is a 68 y.o. White or female who presents with malaise and tachycardia. History taken from chart review. Patient was encephalopathic and history was unreliable with no one by bedside. She was at a colorectal surgery appointment for MRI for staging of rectal cancer. After the MRI, she didn't look well and EMS was called to take patient to [facility] ER. Pulmonology was consulted for evaluation of mediastinal lymphadenopathy. She has history of diabetes, essential hypertension, mixed hyperlipidemia, HFREF 40-45% nov 23, atrial fibrillation/flutter s/p ablation 2020, atherosclerotic heart disease (2020 angiogram showed moderate disease in LAD, RCA and LCX, medical management), nonrheumatic mitral and tricuspid valve regurgitation, CKD 4, stage IV pressure ulcer sacrum complicated by osteomyelitis s/p debridement 10/23, severe esophagitis, rectal cancer currently undergoing staging, recent admission to ICU in October of 2023 in which had ex lap with small-bowel resection and colostomy wound VAC due to GI bleed and hemodialysis. Upon arrival to ED, patient afebrile tachycardic heart rate in the 150s, respiratory rate between 20-30, blood pressure soft 85/73 satting well on 4 L nasal cannula baseline 0. Initial lab work significant for white blood cell count of 15.9, hemoglobin 8.1 baseline 8-9, glucose 42, creatinine 1.48 baseline 1.2, alk phos 313, Blood glucose 43 , lactate 1.0. Chest x-ray revealed cardiomegaly and vascular congestion. CT abdomen and pelvis revealed distended gallbladder with periportal edema and evidence of large sacral soft tissue ulcer unable to exclude osteomyelitis nonspecific thickening of rectal canal. CT chest revealed new focal opacity in left lung apex along with increase in mediastinal nodes which could represent reactive versus metastatic process. Problem:Principal Problem: Sepsis PMH: Past Medical History: Diagnosis Date Arrhythmia Hypertension Injury of back Disc L4 and L5 Obesity Respiratory distress 10/19/2023 Septic shock ([facility]-HCC) 12/22/2023 Systolic and diastolic CHF, acute ([facility]) 09/03/2023 Visual impairment PSH: Past Surgical History: Procedure Laterality Date APPLICATION WOUND VAC N/A 11/07/2023 Performed by Mitra Crowell MD at [facility] Cardiac catheterization 02/16/2021 Performed by Kelli Su MD at [facility] CARDIAC CATH LABS Caval Tricuspid Isthmus RFA, Carto w/ICE N/A 03/21/2021 Performed by Lurdes Weinberg MD at [facility] HR (EP) COLONOSCOPY POLYPECTOMY N/A 10/23/2023 Performed by Soy Talamantes MD at [facility] Coronary angiogram and left ventricular gram/pressure N/A 02/16/2021 Performed by Kelli Su MD at [facility] CARDIAC CATH LABS Coronary fractional flow reserve N/A 02/16/2021 Performed by Kelli Su MD at [facility] CARDIAC CATH LABS CREATION OF END COLOSTOMY N/A 11/07/2023 Performed by Mitra Crowell MD at [facility] ESOPHAGOGASTRODUODENOSCOPY DIAGNOSTIC N/A 10/23/2023 Performed by Soy Talamantes MD at [facility] EXAM UNDER ANESTHESIA WITH BRECTAL BIOPSY N/A 11/28/2023 Performed by Mitra Crowell MD at [facility] EXAM UNDER ANESTHESIA/RECTAL MASS BIOPSY N/A 10/25/2023 Performed by Mitra Crowell MD at [facility] FLEXIBLE SIGMOIDOSCOPY N/A 10/25/2023 Performed by Mitra Crowell MD at [facility] FLEXIBLE SIGMOIDOSCOPY WITH BIOPSY N/A 11/28/2023 Performed by Mitra Crowell MD at [facility] INSCISIONAL DEBRIDEMENT SACRUM N/A 10/20/2023 Performed by Magdi Matthew MD at [facility] INSERT ARTERIAL LINE 11/05/2023 INSERT ARTERIAL LINE 11/07/2023 Intravascular pressure measurement first vessel each additional vessel (fractional flow reserve) N/A 02/16/2021 Performed by Kelli Su MD at [facility] CARDIAC CATH LABS INTUBATION 11/07/2023 LAPAROTOMY EXPLORATORY N/A 11/07/2023 Performed by Mitra Crowell MD at [facility] MYRINGOTOMY W/ TUBES RESECTION BOWEL SMALL N/A 11/07/2023 Performed by Mitra Crowell MD at [facility] TONSILLECTOMY Allergies: Allergies Allergen Reactions Oats Home Meds: Scheduled Meds: aspirin, 81 mg, oral, Daily atorvastatin, 20 mg, oral, Nightly cefepime (MAXIPIME) IV, 2,000 mg, intravenous, Q12H digoxin, 250 mcg, intravenous, Q4H metroNIDAZOLE, 500 mg, intravenous, Q8H pantoprazole, 40 mg, oral, QAM AC vancomycin, 1,250 mg, intravenous, Q24H Continuous Infusions: dextrose 5 % in water, 100 mL/hr D5 % and 0.9 % sodium chloride, 75 mL/hr, Last Rate: 75 mL/hr (12/23/23 1236) heparin, 300-3,500 Units/hr, Last Rate: 1,000 Units/hr (12/23/23 1236) sodium chloride 0.9 %, 20 mL/hr PRN Meds:. acetaminophen dextrose dextrose 5 % in water dextrose 50 % in water (D50W) glucagon (human recombinant) heparin (porcine) iohexoL magnesium sulfate magnesium sulfate ondansetron potassium chloride OR potassium chloride sodium chloride sodium chloride sodium chloride 0.9 % sodium chloride Social History: Social History Socioeconomic History Marital status: Spouse name: Not on file Number of children: Not on file Years of education: Not on file Highest education level: Not on file Occupational History Not on file Tobacco Use Smoking status: Some Days Types: Cigarettes Smokeless tobacco: Never Tobacco comments: 2 cigarettes a day Vaping Use Vaping Use: Never used Substance and Sexual Activity Alcohol use: Never Drug use: Never Sexual activity: Defer Other Topics Concern Coffee Not Asked Tea Not Asked Carbonated Beverages Not Asked Chocolate Not Asked Caffeine Use Yes Social History Narrative Not on file Social Determinants of Health Financial Resource Strain: Not on file Food Insecurity: Not on file (12/22/2023) Transportation Needs: No Transportation Needs (09/30/2023) PRAPARE - Transportation Lack of Transportation (Medical): No Lack of Transportation (Non-Medical): No Physical Activity: Not on file Stress: Not on file Social Connections: Not on file Interpersonal Safety: Not At Risk (09/30/2023) Humiliation, Afraid, Rape, and Kick questionnaire Fear of Current or Ex-Partner: No Emotionally Abused: No Physically Abused: No Sexually Abused: No Housing Instability: Low Risk (09/30/2023) Housing Instability Housing Instability: No Family History: Family History Problem Relation Age of Onset No Known Problems Mother Heart attack Father Review of Systems Review of Systems Unable to perform ROS: Mental status change Physical Exam BP 116/85 Pulse 112 Temp 36.8 C (98.2 F) (Oral) Resp 17 Ht 162.6 cm (5' 4 ) Wt 92.1 kg (203 lb 0.7 oz) SpO2 98% BMI 34.85 kg/m Intake/Output Summary (Last 24 hours) at 12/23/2023 1307 Last data filed at 12/23/2023 1236 Gross per 24 hour Intake 1559.43 ml Output 1400 ml Net 159.43 ml Admission weight: 90.3 kg (199 lb 1.2 oz) Physical Exam Vitals reviewed. Constitutional: General: She is not in acute distress. Appearance: She is obese. She is ill-appearing. She is not toxic-appearing. HENT: Head: Normocephalic and atraumatic. Eyes: General: No scleral icterus. Extraocular Movements: Extraocular movements intact. Cardiovascular: Rate and Rhythm: Tachycardia present. Pulmonary: Effort: Tachypnea present. No accessory muscle usage or respiratory distress. Breath sounds: Decreased air movement present. No stridor. No wheezing or rales. Abdominal: General: There is no distension. Skin: Findings: No rash. Neurological: Mental Status: She is alert. Cranial Nerves: No cranial nerve deficit. Lab Review: Results from last 7 days Lab Units 12/23/23 0945 12/23/23 0326 WBC X10E9/L -- 13.9* HEMOGLOBIN g/dL 7.3* 8.2* HEMATOCRIT % 22.5* 25.4* PLATELETS X10E9/L -- 176 Results from last 7 days Lab Units 12/23/23 0326 POTASSIUM mmol/L 4.5 CHLORIDE mmol/L 111* CO2 mmol/L 22 BUN mg/dL 25 CREATININE mg/dL 1.17* CALCIUM mg/dL 7.1* Results from last 7 days Lab Units 12/23/23 0326 MAGNESIUM mg/dL 1.9 Radiology: Vas venous duplex lwr bilateral Result Date: 12/23/2023 Right: Lower extremity deep veins are compressible with spontaneous phasic spectral Doppler waveforms; superficial veins are compressible without intraluminal content. Left: Lower extremity deep veins are compressible with spontaneous phasic spectral Doppler waveforms; superficial veins are compressible without intraluminal content. General: Incidental finding of left nodular mass without color flow in the groin. Recommendations: Any questions prior to finalization, please call the reading physician during normal business hours at the phone number beside their name. Ultrasound abdomen limited Result Date: 12/22/2023 US ABDOMEN LMTD HISTORY: Cholecystitis COMPARISON: CT abdomen and pelvis today PROCEDURE: Real-time grayscale ultrasound and limited color flow performed. FINDINGS: Liver demonstrate normal echogenicity. No discrete masses visualized. MPV demonstrates low velocity flow of 11.3 cm/s. Common bile duct is nondilated, measuring 4 mm. Gallbladder wall thickness is within normal limits. The gallbladder is diffusely distended with layering internal debris, sludge. No shadowing echogenic foci. Negative sonographic Andre's sign. The visualized portions of the pancreas are within normal limits. Trace fluid seen adjacent to the right hepatic lobe. IMPRESSION: * Gallbladder distention with internal debris/sludge. No gallbladder wall thickening to suggest acute cholecystitis. Finalized by Gracie Ontiveros MD on 12/22/2023 6:[address] chest with contrast Result Date: 12/22/2023 CLINICAL STATEMENT: Colon cancer, assess response to treatment, sepsis COMPARISON: 11/07/2023 TECHNIQUE: Axial views were obtained from the lung apices to the lung bases following the uneventful administration of 100 mL IV contrast. Coronal and sagittal MPR reconstructions were performed. FINDINGS: The visualized portion of the thyroid gland is stable, possible underlying small cysts or nodules. Interval resolution of the bilateral small pleural effusions. There is now residual posterior dependent atelectatic changes. Atelectasis versus groundglass opacity of the left lung apex (image 21 of 87) which measures up to 1.4 cm in diameter. No new solid pulmonary nodules. Precarinal mediastinal lymph node measures 11 x 12 mm, previously 8 x 9 mm. The ascending aorta, the aortic arch, and the descending aorta show demonstrate no aneurysmal dilatation. Moderate calcifications of the aortic arch. Normal three-vessel branching pattern. The pulmonary arteries show no large proximal filling defects. Pulmonary arteries are not enlarged. The heart is normal in size and morphology. Multivessel severe coronary artery calcifications. SVC appears normal. The esophagus, the trachea, and the main bronchi show no definite abnormality. Abdominal findings discussed on CT abd pelvis performed concurrently. IMPRESSION: * There is a new focal opacity of the left lung apex pleural. This may represent focal infectious or atelectatic infiltrate though developing groundglass or solid nodule cannot be excluded. Recommend 3 month follow-up. * Slight increased size of a precarinal mediastinal node which measures 12 mm, previously 9 mm. Change in size could be reactive or metastatic, continued follow-up recommended. * No new solid pulmonary nodes. * Resolution of previous bilateral effusions. * Stable cardiomegaly and multivessel coronary artery calcifications. Finalized by Gracie Ontiveros MD on 12/22/2023 3:[address] abdomen and pelvis with contrast Result Date: 12/22/2023 CLINICAL INFORMATION: Sepsis; Metastatic disease evaluation; Colon cancer, staging; hx colon ca, tachy, hypotensive, abdominal wall wound with sri pus. COMPARISON: 11/07/2023 TECHNIQUE: CT of the abdomen and pelvis with intravenous contrast. FINDINGS: LOWER CHEST: Interpreted separately. LIVER AND BILIARY: Distended gallbladder with periportal edema. No suspicious focal liver lesion. PANCREAS: Within normal limits. SPLEEN: Within normal limits. ADRENALS: Within normal limits. KIDNEYS, URETERS, AND BLADDER: Symmetric enhancement. No suspicious lesion or hydronephrosis. Bladder gas with indwelling Dasilva catheter. GI TRACT AND PERITONEUM: Prior heart and stomach. Left lower quadrant colostomy. No postoperative obstruction. Thickened rectum/anal canal. Presumed endoscopy clips in the cecum; correlate with any recent intervention. Prior small bowel resection the right lower quadrant. Nonvisualized appendix. No free air. Small volume free fluid VASCULATURE: Normal caliber aorta. Advanced atherosclerosis of the SMA, poorly characterize given technique. LYMPH NODES: Within normal limits. REPRODUCTIVE ORGANS: No asymmetry. MUSCULOSKELETAL: Soft tissue defect over the sacrum, approximately 2 cm with skin thickening and inflammation, likely extending to the sacrum. Osteopenia. No acute osseous abnormality. IMPRESSION: 1. Distended gallbladder with periportal edema. Correlate with LFTs/right upper quadrant pain. Consider ultrasound follow-up. 2. Large sacral decubitus soft tissue ulcer. Underlying osteomyelitis not excluded. 3. Nonspecific thickening of the rectum/anal canal. 4. Additional findings as above All CT scans at this facility use dose modulation, iterative reconstruction, and/or weight based dosing when appropriate to reduce radiation dose to as low as reasonably achievable. Finalized by Krystal Crowley MD on 12/22/2023 3:01 PM X-ray chest 1 view Result Date: 12/22/2023 Portable chest: HISTORY: Cough and sepsis. Single view the chest was obtained. Cardiac silhouette is enlarged but unchanged. Pulmonary vasculature is congested. No pneumothorax seen. Central line tip in the region of the SVC. IMPRESSION: Cardiomegaly and vascular congestion. Finalized by Ray Vo MD on 12/22/2023 1:52 PM Inpatient Meds: Scheduled Meds: aspirin, 81 mg, oral, Daily atorvastatin, 20 mg, oral, Nightly cefepime (MAXIPIME) IV, 2,000 mg, intravenous, Q12H digoxin, 250 mcg, intravenous, Q4H metroNIDAZOLE, 500 mg, intravenous, Q8H pantoprazole, 40 mg, oral, QAM AC vancomycin, 1,250 mg, intravenous, Q24H Continuous Infusions: dextrose 5 % in water, 100 mL/hr D5 % and 0.9 % sodium chloride, 75 mL/hr, Last Rate: 75 mL/hr (12/23/23 1236) heparin, 300-3,500 Units/hr, Last Rate: 1,000 Units/hr (12/23/23 1236) sodium chloride 0.9 %, 20 mL/hr PRN Meds:. acetaminophen dextrose dextrose 5 % in water dextrose 50 % in water (D50W) glucagon (human recombinant) heparin (porcine) iohexoL magnesium sulfate magnesium sulfate ondansetron potassium chloride OR potassium chloride sodium chloride sodium chloride sodium chloride 0.9 % sodium chloride Assessment: Sepsis due to multiple sources (pneumonia vs cholecystitis vs sacral ulcer vs urine) 2. Acute hypoxic respiratory failure 3. Left lung apex opacity concerning for pneumonia/atelectasis 4. Mediastinal lymphadenopathy concerning for metastasis vs reactive lymphadenopathy 5. Acute encephalopathy likely metabolic/toxic 5. Distended gallbladder with periportal edema concerning for cholecystitis 6. Sacral decubitus ulcer (osteomyelitis in Sep 2023 s/p debridement) 7. CKD4 8. HFrEF (40-45%), not in exacerbation 9. Rectal cancer 10. Atrial fibrillation with rapid ventricular rate Plan: - Provide supplemental O2 to keep SpO2 >92% - Imaging reviewed with Dr. Condon. Lymphadenopathy appears reactive. No plan for EBUS. Probably will need repeat CT imaging to ensure resolution of mediastinal lymphadenopathy within a few months - Would hold off on diuresis due to sepsis and patient requiring only 2L NC - Continue broad spectrum antibiotics with cefepime, vanc, metronidazole - Follow up blood cultures - If respiratory status worsens, obtain chest xray to ensure no worsening pulmonary congestion and would consider obtaining sputum culture (if coughing), urine legionella, urine streptococcal antigen - Close monitoring as patient may require ICU transfer - Rest per primary - Pulmonology will follow Harman Shah MD 12/23/23 1:07 PM - PGY3 Internal Medicine Resident. - [facility]. This consult note was completed using a voice workforce management manager system. Every effort was made to ensure accuracy. However, inadvertent computerized workforce management manager errors may be present. Associated attestation - Justin Condon MD - 12/23/2023 3:36 PM EDT I personally saw this patient on the day of the encounter, performed the greenberg portion(s) of the service and participated in the management and confirm the resident/fellow s documentation. Please note there may be additional personal documentation from me 68 Y/O female with past medical history of DM2, CKD 4, Afib, Rectal cancer and CHFrEF 45% with recent admission to ICU in October of 2023 in which had ex lap with small-bowel resection and colostomy wound VAC due to GI bleed and underwent hemodialysis. She was readmitted for sepsis with hypotension, source Cholecystitis vs Sacral wound, currently on IV antibiotics, CT chest showed vascular congestion and small mediastinal LAP which appears homogenous. Given the patient acute illness and deconditioning and the appearance and size of mediastinal lymph nodes, would favor conservative management at this point and follow up CT chest in the near future ~ 3 months. Consider EBUS guided biopsy if increased in size or PET avid Justin Condon MD Pulmonary and critical care [facility] Associated Order(s): IP CONSULT TO CARDIOLOGY Images from the original note were not included. [facility] [address] [place] [address] HISTORY & PHYSICAL / CONSULT NOTE Harris Fatima Krishsepideh PCP: Carol Akins PA-C Date of Admission: 12/22/2023 Date of Consultation: 12/22/2023 5:18 PM Consult for AFib RVR SUBJECTIVE History of Present Illness: Harris Castrejon is a 68 y.o. female 68-year-old female with history of hypertension now with hypotension on midodrine hyperlipidemia diabetes cardiomyopathy felt to be tachy mediated persistent atrial fibrillation, history of atrial flutter ablation 2021, moderate nonobstructive ASCVD, CKD, sacral ulcer complicated by osteomyelitis status post debridement, rectal cancer who was recently just discharged presents after leaving SNF for MRI today found to be tachycardic and hypotensive. She had some confusion. She was given IV fluids. And IV digoxin. Her heart rate improved and her blood pressure improved. She was awake denies chest pain complains of nausea pain and dizziness Previous Medical History: Past Medical History: Diagnosis Date Arrhythmia Hypertension Injury of back Disc L4 and L5 Obesity Respiratory distress 10/19/2023 Systolic and diastolic CHF, acute (CMS-HCC) 09/03/2023 Visual impairment Previous Surgical History: Past Surgical History: Procedure Laterality Date APPLICATION WOUND VAC N/A 11/07/2023 Performed by Mitra Crowell MD at [facility] Cardiac catheterization 02/16/2021 Performed by Kelli Su MD at [facility] CARDIAC CATH LABS Caval Tricuspid Isthmus RFA, Carto w/ICE N/A 03/21/2021 Performed by Lurdes Weinberg MD at [facility] HRC (EP) COLONOSCOPY POLYPECTOMY N/A 10/23/2023 Performed by Soy Talamantes MD at [facility] Coronary angiogram and left ventricular gram/pressure N/A 02/16/2021 Performed by Kelli Su MD at [facility] CARDIAC CATH LABS Coronary fractional flow reserve N/A 02/16/2021 Performed by Kelli Su MD at [facility] CARDIAC CATH LABS CREATION OF END COLOSTOMY N/A 11/07/2023 Performed by Mitra Crowell MD at [facility] ESOPHAGOGASTRODUODENOSCOPY DIAGNOSTIC N/A 10/23/2023 Performed by Soy Talamantes MD at [facility] EXAM UNDER ANESTHESIA WITH BRECTAL BIOPSY N/A 11/28/2023 Performed by Mitra Crowell MD at [facility] EXAM UNDER ANESTHESIA/RECTAL MASS BIOPSY N/A 10/25/2023 Performed by Mitra Crowell MD at [facility] FLEXIBLE SIGMOIDOSCOPY N/A 10/25/2023 Performed by Mitra Crowell MD at [facility] FLEXIBLE SIGMOIDOSCOPY WITH BIOPSY N/A 11/28/2023 Performed by Mitra Crowell MD at [facility] INSCISIONAL DEBRIDEMENT SACRUM N/A 10/20/2023 Performed by Magdi Matthew MD at [facility] INSERT ARTERIAL LINE 11/05/2023 INSERT ARTERIAL LINE 11/07/2023 Intravascular pressure measurement first vessel each additional vessel (fractional flow reserve) N/A 02/16/2021 Performed by Kelli Su MD at [facility] CARDIAC CATH LABS INTUBATION 11/07/2023 LAPAROTOMY EXPLORATORY N/A 11/07/2023 Performed by Mitra Crowell MD at [facility] MYRINGOTOMY W/ TUBES RESECTION BOWEL SMALL N/A 11/07/2023 Performed by Mitra Crowell MD at [facility] TONSILLECTOMY Allergies: Allergies Allergen Reactions [facility] Meds: Current Facility-Administered Medications Medication Dose Route Frequency Provider Last Rate Last Admin cefEPime (MAXIPIME) 1,000 mg in sodium chloride 0.9 % 50 mL IVPB-MBP 1,000 mg intravenous Q24H Lexx Medina MD dextrose (GLUTOSE) 40 % gel 15 g 15 g oral PRN Lexx Medina MD dextrose 5 % (D5W) infusion 100 mL/hr intravenous Continuous PRN Lexx Medina MD dextrose 50 % in water (D50W) 50% solution 25 mL 25 mL intravenous PRN Lexx Medina MD glucagon HCL injection 1 mg 1 mg intramuscular PRN Lexx Medina MD hydrocortisone sod succ (PF) (Solu-CORTEF) injection 50 mg 50 mg intravenous Q6H Umang Antonio MD iohexoL (OMNIPAQUE) 300 mg iodine/mL 125 mL 125 mL intravenous Once in imaging Salbador Nato, DO metroNIDAZOLE (FLAGYL) IVPB 500 mg/100 mL in iso-osmotic sodium chloride (5 mg/mL premix) 500 mg intravenous Q8H Lexx Medina MD sodium chloride 0.9 % flush 10 mL 10 mL intravenous Once in imaging Salbador Nato, DO sodium chloride 0.9 % flush bag 25 mL intravenous PRN Lexx Medina MD sodium chloride 0.9 % infusion 20 mL/hr intravenous Continuous PRN Lexx Medina MD sodium chloride 0.9 % infusion 100 mL/hr intravenous Continuous Umang Antonio MD sodium chloride 0.9 % radiology injection 80 mL intravenous Once in imaging Salbador [place], DO Home Meds: Prior to Admission medications Medication Sig Start Date End Date Taking? Authorizing Provider acetaminophen (TYLENOL EXTRA STRENGTH) 500 mg tablet Take 2 tablets (1,000 mg total) by mouth every 6 (six) hours as needed for pain, headaches or fever. 11/03/23 Yes NICOLAS Hoang bumetanide (BUMEX) 2 mg tablet Take 1 tablet (2 mg total) by mouth daily. 12/05/23 Yes NICOLAS Chi digoxin (LANOXIN) 125 mcg tablet Take 1 tablet (125 mcg total) by mouth in the morning. 12/05/23 Yes NICOLAS Chi dilTIAZem CD (CARDIZEM CD) 180 mg 24 hr capsule Take 1 capsule (180 mg total) by mouth in the morning. 11/03/23 Yes NICOLAS Hoang insulin glargine (LANTUS, SEMGLEE) 100 unit/mL (3 mL) insulin pen Inject 10 Units under the skin in the morning and 10 Units before bedtime. 11/03/23 Yes NICOLAS Hoang ipratropium (ATROVENT) 0.02 % nebulizer solution Inhale 2.5 mL (0.5 mg total) by nebulization 4 (four) times a day as needed for wheezing or shortness of breath. 12/04/23 Yes NICOLAS Chi levalbuterol (XOPENEX) 0.63 mg/3 mL nebulizer solution Inhale 3 mL (0.63 mg total) by nebulization every 6 (six) hours as needed for wheezing or shortness of breath. 11/03/23 Yes NICOLAS Hoang magnesium oxide (MAGOX) 400 mg tablet Take 1 tablet (400 mg total) by mouth in the morning and 1 tablet (400 mg total) before bedtime. 11/03/23 Yes NICOLAS Hoang megestroL (MEGACE) 400 mg/10 mL (10 mL) suspension Take 10 mL (400 mg total) by mouth in the morning. 12/05/23 Yes NICOLAS Chi metoprolol tartrate (LOPRESSOR) 10 mg/mL suspension Take 2.5 mL (25 mg total) by mouth in the morning and 2.5 mL (25 mg total) before bedtime. 12/04/23 Yes NICOLAS Chi midodrine (PROAMATINE) 5 mg tablet Take 1 tablet (5 mg total) by mouth 3 (three) times a day. 11/03/23 Yes NICOLAS Hoang omeprazole magnesium (PriLOSEC) 10 mg susp,delayed release for recon suspension Take 20 mg by mouth in the morning. 12/04/23 Yes NICOLAS Chi sertraline (ZOLOFT) 50 mg tablet Take 1 tablet (50 mg total) by mouth in the morning. 12/05/23 Yes NICOLAS Chi fat ndqr-ppy-iju-oliv-fish oil, SMOFLIPID, 20 % emulsion infusion Infuse 200 mL (40 g total) into a venous catheter in the morning. 12/04/23 NICOLAS Chi heparin lock flush, porcine, 10 unit/mL injection Infuse 1-5 mL (10-50 Units total) into a venous catheter as needed (line care per nursing agency protocol.). 11/01/23 NICOLAS Barnes heparin lock flush, porcine, injection 100 unit/mL solution Infuse 1-5 mL (100-500 Units total) into a venous catheter as needed (line care per nursing agency protocol.). 11/01/23 NICOLAS Barnes TPN FOR DISCHARGE See most recent TPN order. Flush IV line with heparin and/or normal saline per agency protocol. 12/04/23 NICOLAS Chi Social History: TOBACCO: reports that she has been smoking cigarettes. She has never used smokeless tobacco. ETOH: reports no history of alcohol use. DRUGS: reports no history of drug use. OCCUPATION: Family History: Family History Problem Relation Age of Onset No Known Problems Mother Heart attack Father OBJECTIVE LAST LABS: CBC: Results from last 7 days Lab Units 12/22/23 1234 WBC X10E9/L 15.9* HEMOGLOBIN g/dL 8.1* HEMATOCRIT % 24.3* MCV fL 88 PLATELETS X10E9/L 197 BMP: Results from last 7 days Lab Units 12/22/23 1242 12/22/23 1234 SODIUM mmol/L -- 142 POTASSIUM mmol/L -- 4.5 CHLORIDE mmol/L -- 105 CO2 mmol/L -- 24 BUN mg/dL -- 32* CREATININE mg/dL -- 1.38* POC CREATININE mg/dL 1.4* -- CALCIUM mg/dL -- 7.8* MAGNESIUM mg/dL -- 1.9 PT/INR: APTT: MAG: Results from last 7 days Lab Units 12/22/23 1234 MAGNESIUM mg/dL 1.9 D Dimer: Troponin I Results from last 7 days Lab Units 12/22/23 1234 TROPONIN I ng/mL 0.04 ProBNP Lipid Panel: Lab Results Component Value Date CHOL 127 (L) 09/13/2021 TRIG 198 (H) 11/25/2023 HDL 38 (L) 09/13/2021 Liver Panel: No results found for: ALB HgA1C: Lab Results Component Value Date HGBA1C 6.3 (H) 09/29/2023 ABG: Lab Results Component Value Date pH 7.488 (H) 11/18/2023 PCO2 29.4 (L) 11/18/2023 PO2 128 (H) 11/18/2023 Base,Excess 1.0 10/29/2023 Base,Deficit 1.0 11/18/2023 Portable HCO3 22.2 11/18/2023 SPO2 97 11/18/2023 CV HISTORY: ECHO: Echo limited W/ contrast Result Date: 11/07/2023 Left Ventricle: Systolic function is mildly to moderately decreased with an ejection fraction of 40-45%. Mitral Valve: There is mild regurgitation. Tricuspid Valve: There is mild regurgitation. Pericardium: There is no pericardial effusion. There is a left pleural effusion. Echo complete W/O contrast Result Date: 10/21/2023 Left Ventricle: Systolic function is normal with an ejection fraction of 55-60%. Poor image quality study with very poor endocardial definition. Normal left ventricular size with probably mild concentric left ventricular hypertrophy. Grossly normal left ventricular systolic function. No significantly abnormal stenotic or regurgitant flows are identified Echo complete W/ contrast Result Date: 09/04/2023 Left Ventricle: There is mild concentric increased wall thickness/hypertrophy. Systolic function is mildly to moderately decreased with an ejection fraction of 40-45%. Mitral Valve: There is mild to moderate regurgitation with a centrally directed and a posteriorly directed jet. There is no evidence of mitral valve stenosis. Tricuspid Valve: There is moderate regurgitation. The tricuspid valve regurgitation jet is eccentric. There is no evidence of tricuspid valve stenosis. STRESS: No results found. HOLTER: No results found. CARDIAC CATH: No results found. CAROTID: No results found. CXR: X-ray chest 1 view Result Date: 12/22/2023 Portable chest: HISTORY: Cough and sepsis. Single view the chest was obtained. Cardiac silhouette is enlarged but unchanged. Pulmonary vasculature is congested. No pneumothorax seen. Central line tip in the region of the SVC. IMPRESSION: Cardiomegaly and vascular congestion. Finalized by Ray Vo MD on 12/22/2023 1:52 PM EKG: TELEMETRY: Afib 90-120 PHYSICAL EXAM Admission Weight: Weight: 90.3 kg (199 lb 1.2 oz) No intake/output data recorded. Weight change: Wt Readings from Last 3 Encounters: 12/22/23 90.3 kg (199 lb 1.2 oz) 12/19/23 90.3 kg (199 lb 1.2 oz) 12/03/23 90.3 kg (199 lb 1.2 oz) Vitals: Vitals: 12/22/23 1522 12/22/23 1636 12/22/23 1653 12/22/23 1715 BP: 92/81 108/73 Pulse: (!) 135 (!) 135 106 Resp: 21 16 19 Temp: TempSrc: Oral SpO2: 96% 100% 100% Weight: Height: Admit Weight Weight: 90.3 kg (199 lb 1.2 oz) Last 3 Weights Last 3 Weight Readings 12/22/23 1208 Weight: 90.3 kg (199 lb 1.2 oz) Body mass index is 34.17 kg/m . INTAKE/OUTPUT No intake/output data recorded. Intake/Output Summary (Last 24 hours) at 12/22/2023 1718 Last data filed at 12/22/2023 1718 Gross per 24 hour Intake -- Output 450 ml Net -450 ml General appearance: Alert and cooperative, in no acute distress Skin: Warm and dry to touch Head: Normocephalic, without obvious abnormality, atraumatic Eyes: Conjunctivae unremarkable, sclera non icteric Neck: neck supple, trachea midline Lungs: resps even and unlabored Heart:: irregular with normal S1 and S2 , no murmurs and no gallops. Extremities: No edema ASSESSMENT/PLAN Persistent atrial fibrillation with RVR Chronic HFrEF with improved EF 40-45% TTE 11/23 felt to be tachy mediated ASCVD moderate disease per [facility] 521 Chronic hypotension on midodrine with history of hypertension History of typical atrial flutter status post ablation 03/21 Concern for sepsis per primary Dyslipidemia on statin Diabetes type 2 CKD History colorectal cancer s/p small bowel resection with colostomy History of sacral ulcer Patient has been given IV fluids and IV digoxin heart rate and BP have improved Continue midodrine and digoxin Resume metoprolol as BP allows ZAYRA SEALS APRN-ALINA This note was completed using a voice workforce management manager system. Every effort was made to ensure accuracy. However, inadvertent computerized workforce management manager errors may be present. NICOLAS Lua 12/22/231731 I, Rafa Hutchinson MD, personally performed the face to face diagnostic evaluation on this patient. My findings are as follows: History of Present Illness: 68 y.o. female with a history of nonobstructive CAD, , felt to be tachycardia mediated, history of persistent AFib and history of atrial flutter ablation 2021 and CAD Patient recently discharged after complicated stay. Had a sacral ulcer. While she was there she had rapid AFib that was difficult to control we had to keep her on midodrine and metoprolol Today for her rectal cancer she was having staging MRI. She recently had colorectal cancer SP bowel resection with colostomy While she was in MRI she was found to be hypotensive and tachycardic The ER patient was given IV fluids and IV digoxin with improvement of the heart rate Eliquis was not used due to bleeding from recent surgery That they had palpitations on the way to the MRI. She denied being sick in any other way fevers or chills Review of Systems: Constitutional: No Fevers/Chills, No recent weight gain weight loss, No fatigue. Cardiovascular: Per HPI Respiratory: No cough or wheezing, no sputum production. No hematemesis. Gastrointestinal: No Nausea, Vomiting, Diarrhea, or Constipation. No melena or hematochezia. All others negative except what is noted above and in my CHALINO's note. Physical Exam Vital Signs: BP 108/73 Pulse 106 Temp 36.8 C (98.2 F) Resp 19 Ht 162.6 cm (5' 4 ) Wt 90.3 kg (199 lb 1.2 oz) SpO2 100% BMI 34.17 kg/m O2 Flow Rate (L/min): 3 L/min Admission Weight: 90.3 kg (199 lb 1.2 oz) General appearance: Alert oriented and cooperative. In no acute distress Skin: Warm and Dry to touch Head: Normocephalic, without obvious abnormality, atraumatic. t. Eyes: PERRLA with EOMI's. Conjunctiva nonicteric Neck: No JVD, No carotid bruit. Neck supple, trachea midline Respiratory: Lungs Clear to ausculation bilaterally, no use of accessory muscles. Heart:: Tachycardic and irregularly irregular normal S1-S2 Gastrointestinal: Soft, non-tender. Bowel sounds normal. Musculoskeletal: No edema. Neurologic: Oriented to time, person and place, affect appropriate. No focal/major motor or sensory defects noted. Psychiatric: Appropriate mood, memory and judgment PLAN 1. AFib with RVR/persistent AFib -patient had required midodrine metoprolol to control on last admission in October -could not use Eliquis due to the rectal bleeding -chads Vasc score = = 5 -continue midodrine digoxin for now and when blood pressure allows restart metoprolol 2. SP atrial flutter ablation February 2022 3. Chronic hypotension 4. CAD -moderate disease on catheterization January 2021 5. Chronic HFrEF -EF has improved 45% on echo 11/23 -it was felt to be tachycardia induced 6. Question sepsis -primary team looking into this 7. SP colorectal cancer and small bowel resection with colostomy 8. Sacral ulcer Patient was just discharged not long ago and went to a LTAC after a very complicated stay documented in this encounter [facility] 12-22-2023 History and physical note Images from the original note were not included. IMS-3 HISTORY AND PHYSICAL Date of Service: 12/22/2023 Patient Name: Harris Castrejon : 1955 PCP: Carol Akins PA-C Chief Complaint: cough, shortness of breath, MRI findings HPI: Harris Castrejon is a 68 y.o. female medical history of diabetes, essential hypertension, mixed hyperlipidemia, HFREF 40-45% nov 23, atrial fibrillation/flutter s/p ablation 2020,, atherosclerotic heart disease (2020 angiogram showed moderate disease in LAD, RCA and LCX, medical management), nonrheumatic mitral and tricuspid valve regurgitation, CKD 4, stage IV pressure ulcer sacrum complicated by osteomyelitis s/p debridement 10/23, severe esophagitis, , rectal cancer currently undergoing staging, recent admission to ICU in October of 2023 in which had ex lap with small-bowel resection and colostomy wound VAC due to GI bleed and hemodialysis. Was recently on TPN through picc line just transitioned to PO feeding couple days ago. Per chart review, patient presented to emergency department after being tachycardic 160s, feeling of unwell while getting MRI today to evaluate her rectal cancer. Upon arrival to ED, patient afebrile tachycardic heart rate in the 150s, respiratory rate between 20-30, blood pressure soft 85/73 satting well on 4 L nasal cannula baseline 0. Initial lab work significant for white blood cell count of 15.9, hemoglobin 8.1 baseline 8-9, glucose 42, creatinine 1.48 baseline 1.2, alk phos 313, Blood glucose 43 , lactate 1.0. Chest x-ray revealed cardiomegaly and vascular congestion. CT abdomen and pelvis revealed distended gallbladder with periportal edema and evidence of large sacral soft tissue ulcer unable to exclude osteomyelitis nonspecific thickening of rectal canal. CT chest revealed new focal opacity in left lung apex along with increase in mediastinal nodes which could represent reactive versus metastatic process. Patient was started on vanc, cefepime for empiric antibiotic therapy. Was treated with 30 cc/kg fluid resuscitation due to presumed sepsis. Was given 50% dextrose due to hypoglycemia. Digoxin ordered due to concern AFib RVR. Cardiology consulted. General surgery consulted regarding potential cholecystectomy upon stabilization Review of symptoms largely limited at this time as patient is floridly encephalopathic. Code Status unable to be discussed due to encephalopathy. We will be admitted as full code The patient will be admitted under IMS-3 for further medical management. Past Medical History: Past Medical History: Diagnosis Date Arrhythmia Hypertension Injury of back Disc L4 and L5 Obesity Respiratory distress 10/19/2023 Systolic and diastolic CHF, acute (CMS-HCC) 09/03/2023 Visual impairment Past Surgical History: Past Surgical History: Procedure Laterality Date APPLICATION WOUND VAC N/A 11/07/2023 Performed by Mitra Crowell MD at [facility] Cardiac catheterization 02/16/2021 Performed by Kelli Su MD at [facility] CARDIAC CATH LABS Caval Tricuspid Isthmus RFA, Carto w/ICE N/A 03/21/2021 Performed by Lurdes Weinberg MD at [facility] HR (EP) COLONOSCOPY POLYPECTOMY N/A 10/23/2023 Performed by Soy Talamantes MD at [facility] Coronary angiogram and left ventricular gram/pressure N/A 02/16/2021 Performed by Kelli Su MD at [facility] CARDIAC CATH LABS Coronary fractional flow reserve N/A 02/16/2021 Performed by Kelli Su MD at [facility] CARDIAC CATH LABS CREATION OF END COLOSTOMY N/A 11/07/2023 Performed by Mitra Crowell MD at [facility] ESOPHAGOGASTRODUODENOSCOPY DIAGNOSTIC N/A 10/23/2023 Performed by Soy Talamantes MD at [facility] EXAM UNDER ANESTHESIA WITH BRECTAL BIOPSY N/A 11/28/2023 Performed by Mitra Crowell MD at [facility] EXAM UNDER ANESTHESIA/RECTAL MASS BIOPSY N/A 10/25/2023 Performed by Mitra Crowell MD at [facility] FLEXIBLE SIGMOIDOSCOPY N/A 10/25/2023 Performed by Mitra Crowell MD at [facility] FLEXIBLE SIGMOIDOSCOPY WITH BIOPSY N/A 11/28/2023 Performed by Mitra Crowell MD at [facility] INSCISIONAL DEBRIDEMENT SACRUM N/A 10/20/2023 Performed by Magdi Matthew MD at [facility] INSERT ARTERIAL LINE 11/05/2023 INSERT ARTERIAL LINE 11/07/2023 Intravascular pressure measurement first vessel each additional vessel (fractional flow reserve) N/A 02/16/2021 Performed by Kelli Su MD at [facility] CARDIAC CATH LABS INTUBATION 11/07/2023 LAPAROTOMY EXPLORATORY N/A 11/07/2023 Performed by Mitra Crowell MD at [facility] MYRINGOTOMY W/ TUBES RESECTION BOWEL SMALL N/A 11/07/2023 Performed by Mitra Crowell MD at [facility] TONSILLECTOMY Home Medications: Prior to Admission medications Medication Sig Start Date End Date Taking? Authorizing Provider acetaminophen (TYLENOL EXTRA STRENGTH) 500 mg tablet Take 2 tablets (1,000 mg total) by mouth every 6 (six) hours as needed for pain, headaches or fever. 11/03/23 Yes NICOLAS Hoang bumetanide (BUMEX) 2 mg tablet Take 1 tablet (2 mg total) by mouth daily. 12/05/23 Yes NICOLAS Chi digoxin (LANOXIN) 125 mcg tablet Take 1 tablet (125 mcg total) by mouth in the morning. 12/05/23 Yes NICOLAS Chi dilTIAZem CD (CARDIZEM CD) 180 mg 24 hr capsule Take 1 capsule (180 mg total) by mouth in the morning. 11/03/23 Yes NICOLAS Hoang insulin glargine (LANTUS, SEMGLEE) 100 unit/mL (3 mL) insulin pen Inject 10 Units under the skin in the morning and 10 Units before bedtime. 11/03/23 Yes NICOLAS Hoang ipratropium (ATROVENT) 0.02 % nebulizer solution Inhale 2.5 mL (0.5 mg total) by nebulization 4 (four) times a day as needed for wheezing or shortness of breath. 12/04/23 Yes NICOLAS Chi levalbuterol (XOPENEX) 0.63 mg/3 mL nebulizer solution Inhale 3 mL (0.63 mg total) by nebulization every 6 (six) hours as needed for wheezing or shortness of breath. 11/03/23 Yes NICOLAS Hoang magnesium oxide (MAGOX) 400 mg tablet Take 1 tablet (400 mg total) by mouth in the morning and 1 tablet (400 mg total) before bedtime. 11/03/23 Yes NICOLAS Hoang megestroL (MEGACE) 400 mg/10 mL (10 mL) suspension Take 10 mL (400 mg total) by mouth in the morning. 12/05/23 Yes NICOLAS Chi metoprolol tartrate (LOPRESSOR) 10 mg/mL suspension Take 2.5 mL (25 mg total) by mouth in the morning and 2.5 mL (25 mg total) before bedtime. 12/04/23 Yes NICOLAS Chi midodrine (PROAMATINE) 5 mg tablet Take 1 tablet (5 mg total) by mouth 3 (three) times a day. 11/03/23 Yes NICOLAS Hoang omeprazole magnesium (PriLOSEC) 10 mg susp,delayed release for recon suspension Take 20 mg by mouth in the morning. 12/04/23 Yes NICOLAS Chi sertraline (ZOLOFT) 50 mg tablet Take 1 tablet (50 mg total) by mouth in the morning. 12/05/23 Yes NICOLAS Chi fat qcra-fah-rgr-oliv-fish oil, SMOFLIPID, 20 % emulsion infusion Infuse 200 mL (40 g total) into a venous catheter in the morning. 12/04/23 NICOLAS Chi heparin lock flush, porcine, 10 unit/mL injection Infuse 1-5 mL (10-50 Units total) into a venous catheter as needed (line care per nursing agency protocol.). 11/01/23 NICOALS Barnes heparin lock flush, porcine, injection 100 unit/mL solution Infuse 1-5 mL (100-500 Units total) into a venous catheter as needed (line care per nursing agency protocol.). 11/01/23 NICOLAS Barnes TPN FOR DISCHARGE See most recent TPN order. Flush IV line with heparin and/or normal saline per agency protocol. 12/04/23 NICOLAS Chi Allergies: Oats Social History: reports that she has been smoking cigarettes. She has never used smokeless tobacco. She reports that she does not drink alcohol and does not use drugs. Family History: Family History Problem Relation Age of Onset No Known Problems Mother Heart attack Father Review of Systems: Review of Systems Unable to perform ROS [place] encephalopathic aox0. OBJECTIVE: Vital Statistics: BP 92/81 Pulse (!) 135 Temp 36.8 C (98.2 F) Resp 21 Ht 162.6 cm (5' 4 ) Wt 90.3 kg (199 lb 1.2 oz) SpO2 96% BMI 34.17 kg/m No intake or output data in the 24 hours ending 12/22/23 1604 Admission weight: 90.3 kg (199 lb 1.2 oz) Physical Exam: Physical Exam Constitutional: Appearance: She is obese. She is ill-appearing and diaphoretic. HENT: Head: Normocephalic and atraumatic. Eyes: General: No scleral icterus. Extraocular Movements: Extraocular movements intact. Pupils: Pupils are equal, round, and reactive to light. Cardiovascular: Rate and Rhythm: Tachycardia present. Rhythm irregular. Heart sounds: No murmur heard. No gallop. Comments: A fib rvr 150s Pulmonary: Effort: Pulmonary effort is normal. No respiratory distress. Breath sounds: No wheezing. Comments: 4L NC baseline room air No use accessory muscles. Exam limited by body habitus. Abdominal: General: There is distension. Tenderness: There is abdominal tenderness. There is guarding. Comments: RUQ tenderness. Positive andre Negative rebound Colostomy in place Bandage over abdomen at prior surgical site beneath healing well Musculoskeletal: General: No deformity or signs of injury. Cervical back: Normal range of motion. No rigidity. Right lower leg: No edema. Left lower leg: No edema. Comments: LUE picc line Lymphadenopathy: Cervical: No cervical adenopathy. Skin: General: Skin is warm. Capillary Refill: Capillary refill takes 2 to 3 seconds. Comments: Skin is warm, dry along extremities x4. Some diaphoretic changes along forehead. Neurological: Mental Status: She is alert. She is disoriented. Cranial Nerves: No cranial nerve deficit. Motor: Weakness present. Comments: Awake, alert to questionoing. Oriented x0 CN2-12 appear grossly intact Labs/Imaging: Recent Results (from the past 24 hour(s)) CBC auto differential Collection Time: 12/22/23 12:34 PM Result Value Ref Range White Blood Cells 15.9 (H) 4.0 - 11.0 X10E9/L RBC count 2.76 (L) 3.80 - 5.20 X10E12/L Hemoglobin 8.1 (L) 11.7 - 15.5 g/dL Hematocrit 24.3 (L) 35 - 47 % MCV 88 80 - 100 fL MCH 29.5 27 - 34 pg MCHC 33.4 32 - 36 g/dL RDW 18.3 (H) 11.5 - 15.0 % Platelets 197 150 - 450 X10E9/L MPV 9.3 7 - 12 fL % neutrophils 80.6 % % lymphocytes 9.5 % % monocytes 8.4 % % eosinophils 1.3 % % Basophils 0.2 % Neutrophils Absolute (A) 12.8 (H) 1.5 - 6.6 X10E9/L Lymphocytes Absolute 1.5 1.0 - 3.5 X10E9/L Monocytes Absolute 1.3 (H) 0 - 0.9 X10E9/L Eosinophils Absolute 0.2 0.0 - 0.4 X10E9/L Basophils Absolute 0.0 0.0 - 0.2 X10E9/L Basic Metabolic Panel Collection Time: 12/22/23 12:34 PM Result Value Ref Range Sodium 142 134 - 146 mmol/L Potassium, Bld 4.5 3.5 - 5.0 mmol/L Chloride 105 98 - 109 mmol/L CO2 24 22 - 32 mmol/L Anion gap 13 5 - 15 mmol/L BUN 32 (H) 5 - 27 mg/dL Creatinine 1.38 (H) 0.40 - 1.00 mg/dL Glucose 42 (LL) 65 - 99 mg/dL Calcium 7.8 (L) 8.5 - 10.5 mg/dL eGFR (CKD-EPI)non-race dependent 42 (L) >59 ml/min/1.73sq.m Liver panel Collection Time: 12/22/23 12:34 PM Result Value Ref Range Alkaline phosphatase 313 (H) 39 - 130 U/L AST 36 0 - 41 U/L ALT 28 0 - 31 U/L Total Bilirubin 0.6 0.3 - 1.2 mg/dL Bilirubin, direct 0.2 0.0 - 0.4 mg/dL Albumin 2.6 (L) 3.2 - 5.3 g/dL Total Protein 6.5 6.0 - 8.0 g/dL Lipase Collection Time: 12/22/23 12:34 PM Result Value Ref Range Lipase 135 (H) 11 - 82 U/L Lactate w/ Reflex Collection Time: 12/22/23 12:34 PM Result Value Ref Range Lactate w/ Reflex 1.0 0.4 - 2.0 mmol/L Magnesium Collection Time: 12/22/23 12:34 PM Result Value Ref Range Magnesium 1.9 1.8 - 2.6 mg/dL Troponin I Collection Time: 12/22/23 12:34 PM Result Value Ref Range Troponin I 0.04 0.00 - 0.04 ng/mL POCT creatinine Collection Time: 12/22/23 12:42 PM Result Value Ref Range Portable creatinine 1.4 (H) 0.4 - 1.0 mg/dL eGFR (CKD-EPI)non-race dependent 41 (L) >59 ml/min/1.73sq.m ER Extra Urine Collection Time: 12/22/23 1:26 PM Result Value Ref Range ER Extra Urine ER EXTRA URINE ORDER IN PROCESS ADD ON Urinalysis (if urine dip already complete) Collection Time: 12/22/23 1:26 PM Result Value Ref Range Mucus, UA PRESENT (A) NONE^NONE RBC 3 0 - 5 /hpf WBC 40 (H) 0 - 5 /hpf POCT Nursing Urine Macroscopic UA Collection Time: 12/22/23 1:37 PM Result Value Ref Range Specific gravity KALINA 1.020 1.003 - 1.035 Leukocyte esterase KALINA Trace (A) Negative^Negative Nitrite KALINA Negative Negative^Negative Ph 7.0 5.0 - 8.5 Protein KALINA 100 (A) Negative^Negative mg/dL Urine glucose KALINA Negative Negative^Negative mg/dL Ketones KALINA Negative Negative^Negative mg/dL Urobilinogen KALINA 1.0 <1.1 eu/dL Bilirubin KALINA Negative Negative^Negative Hemoglobin KALINA Negative Negative^Negative Bedside Glucose *Place/Obtain serum glucose if >500(>600 MRH) per glucometer. Collection Time: 12/22/23 2:40 PM Result Value Ref Range Bedside glucose 93 65 - 99 mg/dL Microbiology Results Procedure Component Value Units Date/Time Urine culture [[id number]] Collected: 12/22/23 1329 Specimen: Urine Updated: 12/22/23 1523 Blood Culture [[id number]] Collected: 12/22/23 1239 Specimen: Blood, Peripheral Draw Updated: 12/22/23 1303 Blood Culture [[id number]] Collected: 12/22/23 1239 Specimen: Blood, Peripheral Draw Updated: 12/22/23 1303 Wound culture superficial includes gram stain [[id number]] Collected: 12/22/23 1239 Updated: 12/22/[address] chest with contrast Result Date: 12/22/2023 CLINICAL STATEMENT: Colon cancer, assess response to treatment, sepsis COMPARISON: 11/07/2023 TECHNIQUE: Axial views were obtained from the lung apices to the lung bases following the uneventful administration of 100 mL IV contrast. Coronal and sagittal MPR reconstructions were performed. FINDINGS: The visualized portion of the thyroid gland is stable, possible underlying small cysts or nodules. Interval resolution of the bilateral small pleural effusions. There is now residual posterior dependent atelectatic changes. Atelectasis versus groundglass opacity of the left lung apex (image 21 of 87) which measures up to 1.4 cm in diameter. No new solid pulmonary nodules. Precarinal mediastinal lymph node measures 11 x 12 mm, previously 8 x 9 mm. The ascending aorta, the aortic arch, and the descending aorta show demonstrate no aneurysmal dilatation. Moderate calcifications of the aortic arch. Normal three-vessel branching pattern. The pulmonary arteries show no large proximal filling defects. Pulmonary arteries are not enlarged. The heart is normal in size and morphology. Multivessel severe coronary artery calcifications. SVC appears normal. The esophagus, the trachea, and the main bronchi show no definite abnormality. Abdominal findings discussed on CT abd pelvis performed concurrently. IMPRESSION: * There is a new focal opacity of the left lung apex pleural. This may represent focal infectious or atelectatic infiltrate though developing groundglass or solid nodule cannot be excluded. Recommend 3 month follow-up. * Slight increased size of a precarinal mediastinal node which measures 12 mm, previously 9 mm. Change in size could be reactive or metastatic, continued follow-up recommended. * No new solid pulmonary nodes. * Resolution of previous bilateral effusions. * Stable cardiomegaly and multivessel coronary artery calcifications. Finalized by Gracie Ontiveros MD on 12/22/2023 3:[address] abdomen and pelvis with contrast Result Date: 12/22/2023 CLINICAL INFORMATION: Sepsis; Metastatic disease evaluation; Colon cancer, staging; hx colon ca, tachy, hypotensive, abdominal wall wound with sri pus. COMPARISON: 11/07/2023 TECHNIQUE: CT of the abdomen and pelvis with intravenous contrast. FINDINGS: LOWER CHEST: Interpreted separately. LIVER AND BILIARY: Distended gallbladder with periportal edema. No suspicious focal liver lesion. PANCREAS: Within normal limits. SPLEEN: Within normal limits. ADRENALS: Within normal limits. KIDNEYS, URETERS, AND BLADDER: Symmetric enhancement. No suspicious lesion or hydronephrosis. Bladder gas with indwelling Dasilva catheter. GI TRACT AND PERITONEUM: Prior heart and stomach. Left lower quadrant colostomy. No postoperative obstruction. Thickened rectum/anal canal. Presumed endoscopy clips in the cecum; correlate with any recent intervention. Prior small bowel resection the right lower quadrant. Nonvisualized appendix. No free air. Small volume free fluid VASCULATURE: Normal caliber aorta. Advanced atherosclerosis of the SMA, poorly characterize given technique. LYMPH NODES: Within normal limits. REPRODUCTIVE ORGANS: No asymmetry. MUSCULOSKELETAL: Soft tissue defect over the sacrum, approximately 2 cm with skin thickening and inflammation, likely extending to the sacrum. Osteopenia. No acute osseous abnormality. IMPRESSION: 1. Distended gallbladder with periportal edema. Correlate with LFTs/right upper quadrant pain. Consider ultrasound follow-up. 2. Large sacral decubitus soft tissue ulcer. Underlying osteomyelitis not excluded. 3. Nonspecific thickening of the rectum/anal canal. 4. Additional findings as above All CT scans at this facility use dose modulation, iterative reconstruction, and/or weight based dosing when appropriate to reduce radiation dose to as low as reasonably achievable. Finalized by Krystal Crowley MD on 12/22/2023 3:01 PM X-ray chest 1 view Result Date: 12/22/2023 Portable chest: HISTORY: Cough and sepsis. Single view the chest was obtained. Cardiac silhouette is enlarged but unchanged. Pulmonary vasculature is congested. No pneumothorax seen. Central line tip in the region of the SVC. IMPRESSION: Cardiomegaly and vascular congestion. Finalized by Ray Vo MD on 12/22/2023 1:52 PM MR abdomen without contrast Result Date: 12/22/2023 History: Rectal cancer. Metastatic survey. Exam/Technique: Multiplanar, multisequence MR imaging is obtained of the abdomen without intravenous contrast. The patient was unable to tolerate the full extent of the examination and an appreviated protocol was obtained. Comparison: CT abdomen 11/07/2019 Findings: Gallbladder is moderately distended with dependent sludge possible small stones. This is exerting some mass effect on the common bile duct or no ductal dilatation demonstrated. Pancreas and pancreatic duct appear to be within normal limits. No acute liver, spleen or adrenal pathology demonstrated. Kidneys show no evidence hydronephrosis. Left lower quadrant ostomy partially visualized without gross complication. IMPRESSION: * Abbreviated MRI due to patient claustrophobia. * Moderate gallbladder distention with sludge and potentially small stones. No acute findings otherwise. Finalized by Jamie Lesetr DO on 12/22/2023 12:53 PM ASSESSMENT/PLAN: Sepsis, likely secondary to acute cholecystitis vs stage 4 ulcer vs malignancy vs picc line LUE placed last admission which had been for TPN , vs prior surgical wounds RUQ pain secondary to cholecystitis Leukocytosis likely secondary to above A fib RVR, likely secondary to recent illness unclear- if missed medication. Currently floridly encephalopathic. Has hx prior fib RVR, prior ablations Hypoglycemia, likely sepsis induced vs less likely medication overdose. Insulin on home meds Altered mental status- likely secondary to current infection. Remains encepphalopathic despite normalization of blood glucose. Hypoxemic respiratory failure requiring 4L NC baseline 0, likely secondary to pneumonia. Unclear if infectious vs aspiration based in light of recent AMS Borderline Acute on chronic kidney injury CKD4, Cr 1.38 from baseline 1.2 - likely secondary to sepsis induced ATN, pre-renal causes. Bun CR ratio 23 Normocytic anemia Hb 8- stable at baseline. Interval enlargement of mediastinal lymph nodes, ground glass opacification in L Lung apex concerning for metastasis Hx colorectal cancer s/p exlab small bowel resectoin with colostomy History of enterococcus faecalis, bacteroides osteomyelitis sacrum Stage 4 pressure ulcer sacrum T2DM A1c 6.3 Plan: Patient has already received 30 cc/kg infusion for fluids. Start maintenance fluids 75 cc an hour normal saline for 12 hours Start vanc, cefepime, Flagyl empiric IV antibiotics Follow up results blood, wound cultures Right upper quadrant ultrasound to evaluate cholecystitis seen on other imaging, exam General surgery consult regarding cholecystectomy following medical stabilization Digoxin 250 mcg 1 time dose ordered for AFib RVR. Have consulted Cardiology to weigh in on therapy for fib RVR whether would benefit from drip dig vs amio drip. Am Currently hesitant to use metoprolol given soft blood pressures Appreciate cardiology recommendations as well regarding anticoagulation risk with heparin infusion for AFib RVR versus recent bleed history Trend trop x3 q6hr Continue supplemental nasal cannula as needed to maintain oxygen above 90%. Wound care consult for stage IV pressure ulcer sacrum Check anemia panel given history heart failure, continuation normocytic anemia. Recheck ESR , CRP, lactate, procal Very low threshold for transfer to ICU in event that clinically deteriorates Resume home meds following appropriate med rec DVT prophylaxis: Holding for possible procedure. Mechanical. Diet: NPO Fluids: 75 cc/hr NS Disposition: TBD Code Status: FULL. The patient was seen and discussed with attending Dr. Villagomez . This note was created with the assistance of a speech-recognition program. Every effort was made to ensure accuracy; however, inadvertent computerized workforce management manager errors may be present. Lexx Medina MD PGY-1 12/22/23 4:04 PM Associated attestation - Radha Villagomez MD - 12/23/2023 8:52 AM EDT I have reviewed the history and physical performed by resident Dr. Medina on date of service 12/22/2023, and agree with their history, exam, assessment, and plan. I have examined the patient today, and in my initial examination found the following in addition to above: Severe sepsis: Likely secondary to infected wounds and sacral ulcer. Broad spectrum IV antibiotics. Infectious Disease service consult. Concern for intra-abdominal source, General surgery and Colorectal surgery following. AFib with RVR, elevated troponin: On heparin infusion. Rate controlled. Trend troponin, cardiology following. documented in this encounter [facility] 12-22-2023 Emergency department Note Bed: 19 Expected date: Expected time: Means of arrival: Comments: A4 Patient to [facility] via EMS for elevated HR; patient was having an outpatient MRI of her abdomen today due to rectal cancer; patient is a resident of [facility]; arrives in Afib with RVR, hypotensive in the 90s; concern for sepsis; alert and oriented X 2; unsure what patient's baseline is at this time; documented in this encounter [facility] 12-18-2023 Miscellaneous Notes Contacted [facility] to make 2-4 week F/U. 2nd attempt. documented in this encounter [facility] 12-18-2023 Telephone encounter Note Contacted [facility] to make 2-4 week F/U. 2nd attempt. [facility] 12-10-2023 Miscellaneous Notes Images from the original note were not included. Cardiac clearance request received for EGD under MAC with Dr. Talamantes at [facility] pending clearance. Patient last seen 08/21/22 by SER. Needs appt for clearance. Message sent to scheduling. Was last supposed to see MAS but cancelled, needs to see general cardiology documented in this encounter [facility] 12-10-2023 Telephone encounter Note Images from the original note were not included. Cardiac clearance request received for EGD under MAC with Dr. Talamantes at [facility] pending clearance. Patient last seen 08/21/22 by SER. Needs appt for clearance. Message sent to scheduling. Was last supposed to see MAS but cancelled, needs to see general cardiology [facility] 12-09-2023 Miscellaneous Notes CRS Pathology results noted. Needs MRI. I called the patient's home phone number and left a VM to give us a call so we can have her come to the office to review and discuss next steps. I am unsure if she has been discharged from [facility] 12/09/2023 1549 attempted to call but VM box has not been set up [facility] Telephone encounter Note CRS Pathology results noted. Needs MRI. I called the patient's home phone number and left a VM to give us a call so we can have her come to the office to review and discuss next steps. I am unsure if she has been discharged from [facility] 12/09/2023 1549 attempted to call but VM box has not been set up [facility] Work Phone: 11-27-2023 Miscellaneous Notes LEFT A VM CANCELING [facility] WITH [facility]. BARNES PATIENT IS CURRENTLY INPATIENT PRESCHEDULED TO MAY [facility]-27[facility]2023 Telephone encounter Note LEFT A VM [facility]CELING [facility] [address] BARNES PATIENT IS CURRENTLY INPATIENT PRESCHEDULED TO [facility]23 Miscellaneous Notes Message from the 11/22/23 discharge list per TLM. He signed off patient care from [facility] Dx persistent atrial fibrillation. Rate better controlled. Will switch to oral medications. Will discontinue subQ heparin and start patient on Eliquis 5 mg b.i.d.. 2. Elevated troponin nonspecific. No ischemic evaluation planned. 3. Chronic kidney disease and has had intermittent hemodialysis. Continues to diurese very well. Another-2.3 L out in the last 24 hours. Renal function staying fairly stable. 4. Hypotension on midodrine with history of hypertension 5. 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 Patient diuresing very well. 2.3 L out more than in in last 24 hours for a total of about 9.1 L out more than in in last 48 hours. BUN and creatinine remain stable and relatively unchanged. Nephrology following. 6. Mixed hyperlipidemia on a statin 7. Anemia of unclear etiology at this time. 8. 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 GI bleeding with history of thrombocytopenia Patient to f/u in 1 to 2 weeks post d/c bvb Pt still currently admitted to [facility]. JLW Currently admitted Pt is still currently admitted documented in this encounter [facility] 11-25-2023 Telephone encounter Note Message from the 11/22/23 discharge list per TLM. He signed off patient care from [facility] Dx persistent atrial fibrillation. Rate better controlled. Will switch to oral medications. Will discontinue subQ heparin and start patient on Eliquis 5 mg b.i.d.. 2. Elevated troponin nonspecific. No ischemic evaluation planned. 3. Chronic kidney disease and has had intermittent hemodialysis. Continues to diurese very well. Another-2.3 L out in the last 24 hours. Renal function staying fairly stable. 4. Hypotension on midodrine with history of hypertension 5. 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 Patient diuresing very well. 2.3 L out more than in in last 24 hours for a total of about 9.1 L out more than in in last 48 hours. BUN and creatinine remain stable and relatively unchanged. Nephrology following. 6. Mixed hyperlipidemia on a statin 7. Anemia of unclear etiology at this time. 8. 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 GI bleeding with history of thrombocytopenia Patient to f/u in 1 to 2 weeks post d/c bvb [facility] 11-25-2023 Telephone encounter Note Pt still currently admitted to [facility]. JLW [facility] 11-25-2023 Telephone encounter Note Currently admitted [facility] 11-25-2023 Telephone encounter Note Pt is still currently admitted [facility] 11-13-2023 Miscellaneous Notes Manager Of Regulatory Affairs contacted [facility] to make hospital follow up. Per Dr. Rivera Patient can follow up in our clinic in 2-4 weeks after discharge. documented in this encounter [facility] 11-13-2023 Telephone encounter Note Manager Of Regulatory Affairs contacted [facility] to make hospital follow up. Per Dr. Rivera Patient can follow up in our clinic in 2-4 weeks after discharge. [facility] 11-06-2023 Miscellaneous Notes [facility] contacted to make appointment per Dr. Rivera Patient can follow up in our clinic in 2-4 weeks after discharge. Seen 11/04/23 documented in this encounter [facility] 11-06-2023 Telephone encounter Note [facility] contacted to make appointment per Dr. Rivera Patient can follow up in our clinic in 2-4 weeks after discharge. Seen 11/04/23 [facility] 11-03-2023 Miscellaneous Notes Per MH recs, patient should be scheduled for outpatient EGD in 4 weeks to assess healing of esophagitis noted on EGD 10/23 with KB Current inpatient OK to schedule EGD or should patient be seen prior? Thank you Okay to schedule EGD ASA as inpatient was 4, should she be ASA 3 with Mac at the hospital? Cardiac clearance faxed for afib Thank you Yes, please. ASA 3, MAC at hospital Patient is currently inpatient at [facility]. Per notes in chart patient is septic. She will require an office visit with cardiology to obtain clearance to proceed with scheduling the EGD. Thank you documented in this encounter [facility] 11-03-2023 Telephone encounter Note Per recs, patient should be scheduled for outpatient EGD in 4 weeks to assess healing of esophagitis noted on EGD 10/23 with KB [facility] Work Phone: 11-03-2023 Telephone encounter Note Current inpatient [facility] 11-03-2023 Telephone encounter Note OK to schedule EGD or should patient be seen prior? Thank you [facility] 11-03-2023 Telephone encounter Note Okay to schedule EGD [facility] Work Phone: 11-03-2023 Telephone encounter Note ASA as inpatient was 4, should she be ASA 3 with Mac at the hospital? Cardiac clearance faxed for afib Thank you [facility] 11-03-2023 Telephone encounter Note Yes, please. ASA 3, MAC at hospital [facility] 11-03-2023 Telephone encounter Note Patient is currently inpatient at [facility]. Per notes in chart patient is septic. She will require an office visit with cardiology to obtain clearance to proceed with scheduling the EGD. Thank you [facility] 10-17-2023 Note XR CHEST 1 VW Procedure: Chest x-ray performed Number of views:AP portable History:Transient alteration of awareness Comparison:10/05/2023 Findings: The heart and lungs show no acute findings, and the mediastinum and bobby are grossly negative . Impression: No acute change. Finalized by Harris Wilde DO on 10/17/2023 5:08 PM [facility] 10-14-2023 Miscellaneous Notes Per [facility] pt wants to cancel appt, phoned pt and spoke with spouse and pt does indeed want to cancel appt and will call back at a later time to reschedule appt. documented in this encounter [facility] 10-14-2023 Telephone encounter Note Per [facility] pt wants to cancel appt, phoned pt and spoke with spouse and pt does indeed want to cancel appt and will call back at a later time to reschedule appt. [facility] 10-07-2023 History of Present illness Narrative Patient was admitted to [facility] from 09/20/2023 to 10/05/2023 for circulatory shock and acute renal failure. During the hospital stay, patient was also treated for acute hypoxic respiratory failure in the setting of volume overload, acute on chronic systolic heart failure, and thrombocytopenia. Patient developed multiple episodes of hematochezia and black stool in the setting of severe thrombocytopenia and supratherapeutic INR. Patient was discharged home off anticoagulation for the next 2 weeks until risks vs benefits of bleeding is re-evaluated by PCP, GI, and Cardiology. Cardiology will evaluate patient for Watchman procedure if risk of bleeding remains high. Noted. Will resolve episode for now since patient not on warfarin. Visit with PPC scheduled 10/15/23. Gerardo Bonilla, [facility] 10/07/23 [id number] documented in this encounter [facility] 10-05-2023 History of Present illness Narrative Images from the original note were not included. [facility] [address] [place] [address] PROGRESS NOTE Harris Castrejon is resting in bed. No acute events overnight. Hemoglobin is improving. Denies chest pain, shortness of breath, palpitations, dizziness. Telemetry shows rate controlled atrial fibrillation overnight, however no longer on monitor this morning SUBJECTIVE Allergies: No Known Allergies CURRENT MEDICATIONS acetaZOLAMIDE, 500 mg, oral, BID bumetanide, 2 mg, oral, BID AC darbepoetin stefania (ARANESP) injection, 100 mcg, subcutaneous, Weekly folic acid, 1 mg, oral, Daily insulin lispro, 2-10 Units, subcutaneous, With meals and nightly metOLazone, 2.5 mg, oral, Weekly metoprolol tartrate, 50 mg, oral, BID midodrine, 10 mg, oral, TID pantoprazole, 40 mg, oral, QAM AC potassium chloride, 40 mEq, oral, BID sennosides-docusate sodium, 2 tablet, oral, Nightly sodium chloride, 10 mL, intravenous, Q96H sodium chloride, 10 mL, intravenous, Q96H sodium chloride, 10 mL, intravenous, Q8H AND sodium citrate, 2 mL, intravenous, Q8H AND sodium chloride, 10 mL, intravenous, PRN AND sodium chloride, 10 mL, intravenous, PRN AND sodium citrate, 2 mL, intravenous, PRN sodium chloride, 3 mL, intravenous, Q12H sodium citrate, 2 mL, intravenous, Q96H sodium citrate, 2 mL, intravenous, Q96H CONTINUOUS INFUSIONS dextrose 5 % in water, 100 mL/hr sodium chloride 0.9 %, 10 mL/hr, Last Rate: Stopped (09/29/23 0141) sodium chloride 0.9 %, 10 mL/hr, Last Rate: Stopped (09/25/23 0130) sodium chloride 0.9 %, 10 mL/hr, Last Rate: Stopped (10/01/23 1507) sodium chloride 0.9 %, 20 mL/hr, Last Rate: 20 mL/hr (10/03/23 0853) sodium chloride 0.9 %, 250 mL sodium chloride 0.9 %, 250 mL Review of Systems: Cardiovascular: No chest pain, dyspnea on exertion, palpitations or loss of consciousness. No cough, hemoptysis, pleuritic pain, or phlebitis. Respiratory: No cough or wheezing, no sputum production, no hematemesis. Neurological: No headache, diplopia, change in muscle strength, numbness or tingling. No change in gait, balance, coordination, mood, affect, memory, mentation, behavior. Hematologic/Lymphatic: No abnormal bruising or bleeding, blood clots or swollen lymph nodes. OBJECTIVE CBC: Results from last 7 days Lab Units 10/05/23 0629 10/04/23 0610 10/03/23 0529 10/02/23 0800 WBC X10E9/L 5.4 5.9 -- 6.9 HEMOGLOBIN g/dL 9.9* 9.5* 8.0* 8.1* HEMATOCRIT % 31.2* 28.9* -- 24.9* MCV fL 97 95 -- 96 PLATELETS X10E9/L 150 155 131* 132* BMP: Results from last 7 days Lab Units 10/05/23 0629 10/04/23 0610 10/03/23 0910 10/03/23 0529 10/02/23 0800 10/01/23 0620 09/30/23 1526 09/30/23 0315 SODIUM mmol/L 148* 145 -- 140 141 143 -- 147* POTASSIUM mmol/L 3.3* 3.5 3.4* 3.2* 3.7 3.9 < > 3.3* CHLORIDE mmol/L 91* 91* -- 91* 93* 97* -- 101 CO2 mmol/L 41* 38* -- 37* 34* 36* -- 34* BUN mg/dL 73* 73* -- 78* 77* 77* -- 83* CREATININE mg/dL 2.31* 2.18* -- 2.40* 2.42* 2.52* -- 2.72* CALCIUM mg/dL 9.0 8.6 -- 8.2* 8.2* 8.4* -- 8.2* PHOSPHORUS mg/dL -- -- -- -- 2.8 2.9 -- 3.1 MAGNESIUM mg/dL 2.0 1.9 -- -- 2.2 2.5 -- 1.9 < > = values in this interval not displayed. PT/INR: Results from last 7 days Lab Units 10/05/23 0629 10/04/23 0610 10/03/23 0529 PROTIME sec 18.2* 18.7* 20.2* INR 1.6* 1.6* 1.8* APTT: MAG: Results from last 7 days Lab Units 10/05/23 0629 10/04/23 0610 10/02/23 0800 MAGNESIUM mg/dL 2.0 1.9 2.2 D Dimer: Troponin I ProBNP Lipid Panel: Lab Results Component Value Date CHOL 127 (L) 09/13/2021 TRIG 159 (H) 09/13/2021 HDL 38 (L) 09/13/2021 Liver Panel: No results found for: ALB HgA1C: Lab Results Component Value Date HGBA1C 6.3 (H) 09/29/2023 ABG: Lab Results Component Value Date pH 7.431 09/27/2023 PCO2 37.8 09/27/2023 PO2 73 (L) 09/27/2023 Base,Excess 1.0 09/27/2023 Base,Deficit 3.0 (H) 09/23/2023 Portable HCO3 25.1 09/27/2023 SPO2 100 09/27/2023 CV TESTING HISTORY: ECHO: Echo complete W/ contrast Result Date: 09/04/2023 Left Ventricle: There is mild concentric increased wall thickness/hypertrophy. Systolic function is mildly to moderately decreased with an ejection fraction of 40-45%. Mitral Valve: There is mild to moderate regurgitation with a centrally directed and a posteriorly directed jet. There is no evidence of mitral valve stenosis. Tricuspid Valve: There is moderate regurgitation. The tricuspid valve regurgitation jet is eccentric. There is no evidence of tricuspid valve stenosis. STRESS: No results found. HOLTER: No results found. CARDIAC CATH: No results found. CAROTID: No results found. CXR: X-ray chest 1 view Result Date: 10/05/2023 XR CHEST 1 VW HISTORY: Congestive heart failure, shortness of breath COMPARISON: 09/30/2023 FINDINGS: AP upright film obtained. Interval removal of right-sided central venous catheter. The cardiomediastinal silhouette is prominent and unchanged. No significant pulmonary vascular congestion.. No pleural effusion or pneumothorax. No consolidation. Degenerative changes in the AC joints bilaterally. Lower thoracic spondylosis with bony spurring. IMPRESSION: * Improved pulmonary vascular congestion with no radiographic evidence of acute cardiopulmonary process. * Interval removal of right IJ central line. Approved by Resident: Judson Pompa DO on 10/05/2023 8:38 AM IVida MD have personally reviewed the image(s) and agree with and/or edited the report Finalized by Vida Jiménez MD on 10/05/2023 8:44 AM X-ray chest 1 view Result Date: 09/30/2023 XR CHEST 1 VW HISTORY: CHF and pulmonary congestion. Follow-up exam COMPARISON: Prior study from the day before. FINDINGS: AP portable upright view of the chest The trachea is midline. Cardiomediastinal contour is mildly enlarged with bilateral hilar congestion. Left retrocardiac consolidation. No pleural effusion or pneumothorax. No change in right IJ central line with the tip in the SVC. IMPRESSION: * Low lung volumes and decompensated CHF similar to prior study. Finalized by Vida Jiménez MD on 09/30/2023 8:05 AM X-ray chest 1 view Result Date: 09/29/2023 Clinical History: Congestion. Portable Upright chest: 09/29/2023 Comparison: 09/28/2023 Findings: A single portable view of the chest was obtained. Right IJ catheter remains in the mid SVC region. There is cardiac prominence with vascular distention centrally and indistinct vascular margins. Confluent basilar opacities persist with no definite change. There is no pneumothorax. Pleural effusions are likely bilaterally IMPRESSION: Persistent vascular congestion with grossly stable basilar infiltrates and probable pleural effusions. Finalized by Jamaal Cormier MD on 09/29/2023 8:09 AM X-ray chest 1 view Result Date: 09/28/2023 Clinical History: Congestion. Edema. Portable Upright chest: 09/28/2023 Comparison: 09/27/2023 Findings: A single portable view of the chest was obtained. Right IJ catheter is in mid trachea. Cardiac silhouette is prominent with stable mediastinal contours. This vascular distention and indistinct appearance centrally with persistent perihilar and basilar infiltrates. No pneumothorax or large pleural effusion is present. IMPRESSION: Vascular congestion with persistent basilar infiltrates and pleural effusions. Finalized by Jamaal Cormier MD on 09/28/2023 7:29 AM X-ray chest 1 view Result Date: 09/27/2023 Single view chest History:sob Difficulty breathing, shortness of breath Comparison: 09/22/2023 Findings: Single portable view of the chest. Stable cardia mediastinal silhouette. Right jugular catheter stable. Mild vascular congestion and edema and small pleural effusions, stable. Impression: No significant interval change. Finalized by Krystal Anderson MD on 09/27/2023 10:45 AM X-ray chest 1 view Result Date: 09/22/2023 Procedure: Chest x-ray performed Number of views:1 History:Shortness of breath Comparison:09/21/2023 Impression: 1. Tubes and lines are stable. Congestion and effusions are present. These are slightly increased. The cardiac silhouette remains enlarged. There is no pneumothorax. Finalized by Jose Tinoco MD on 09/22/2023 1:32 PM X-ray chest 1 view Result Date: 09/21/2023 HISTORY AND/OR TECH NOTES line placement PROCEDURE AP chest at 10:32 AM COMPARISON September 20 FINDINGS Right central line placement to the mid SVC No visible pneumothorax There is cardiomediastinal prominence with increased perihilar congestion and granular opacity There is increase in confluent opacity in left greater than right lung base Probable small effusions IMPRESSION: Right central line placement mid SVC without visible pneumothorax Worsening congestive change and probable edema and atelectasis left worse than right with trace effusions Suggest follow-up imaging to document clearing and normalization when appropriate ----- Finalized by Charlie Mendoza MD on 09/21/2023 10:45 AM X-ray chest 1 view Result Date: 09/20/2023 Single view chest XR CHEST 1 VW History: weakness Comparison: September 03 Impression: * No consolidation or pleural fluid. No acute findings. Moderate cardiomegaly Finalized by Watson Ceja MD on 09/20/2023 1:42 AM X-ray chest 1 view Result Date: 09/03/2023 XR CHEST 1 VW CLINICAL INFORMATION: Shortness of breath, evaluate for fluid overload. COMPARISON: 02/08/21. IMPRESSION: * Mild vascular congestion with midlung and basilar atelectatic changes. Trace effusions. Mild cardiomegaly. Finalized by Tian Jones MD on 09/03/2023 2:25 PM ECG: TELEMETRY: Atrial fibrillation, rate controlled PHYSICAL EXAM Admission Weight: Weight: 131.8 kg (290 lb 9.1 oz) I/O last 3 completed shifts: In: 360 [P.O.:360] Out: 3000 [Urine:3000] Weight change: Wt Readings from Last 3 Encounters: 10/05/23 113.5 kg (250 lb 3.6 oz) 09/19/23 132 kg (291 lb) 09/05/23 114.3 kg (252 lb) Vitals: Vitals: 10/05/23 0004 10/05/23 0303 10/05/23 0600 10/05/23 0901 BP: 116/69 99/64 90/68 Pulse: 89 90 67 Resp: 20 18 18 Temp: 36.4 C (97.6 F) 36.5 C (97.7 F) 36.5 C (97.7 F) TempSrc: Oral Oral Oral SpO2: 92% 94% 94% Weight: 113.5 kg (250 lb 3.6 oz) Height: Admit Weight Weight: 131.8 kg (290 lb 9.1 oz) Last 3 Weights Last 3 Weight Readings 10/02/23 0603 10/03/23 0500 10/05/23 0600 Weight: 112.8 kg (248 lb 10.9 oz) 112.6 kg (248 lb 3.8 oz) 113.5 kg (250 lb 3.6 oz) Body mass index is 41.64 kg/m . INTAKE/OUTPUT I/O last 3 completed shifts: In: 360 [P.O.:360] Out: 3000 [Urine:3000] Intake/Output Summary (Last 24 hours) at 10/05/2023 1126 Last data filed at 10/05/2023 0900 Gross per 24 hour Intake 120 ml Output 350 ml Net -230 ml General appearance: Alert oriented and cooperative, In no acute distress Skin: Warm and dry to touch Head: Normocephalic, without obvious abnormality, atraumatic Eyes: Conjunctivae unremarkable, EOM's intact, sclera non icteric Neck: No JVD Lungs: Clear to ausculation bilaterally, no use of accessory muscles Heart:: Irregularly irregular Extremities: Mild edema Neurologic: Oriented to time, person and place, affect appropriate, no focal/major motor or sensory defects noted Psychiatric: Appropriate mood, memory and judgment ASSESSMENT Persistent atrial fibrillation with RVR CHADS2 Vasc of at least 4 given age, sex, heart failure, CAD Atrial flutter s/p RFA 2020 Acute on chronic systolic heart failure 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 Hemoglobin improving. Patient with elevated CHADS2 Vasc. Will discuss with attending about timing to start anticoagulation given no definitive cause was investigated Continue Lopressor 50 mg b.i.d. for rate control. Unable to pursue rhythm control given interrupted anticoagulation and concern for future uninterrupted anticoagulation Midodrine currently ordered 10 mg t.i.d.. Diuresis per Nephrology. NICOLAS Barba This note was completed using a voice workforce management manager system. Every effort was made to ensure accuracy. However, inadvertent computerized workforce management manager errors may be present. NICOLAS Garces 10/05/23 1142 Images from the original note were not included. Nephrology Daily Progress Note The events of last night reviewed, chart and all new entries , new tests reviewed Impression/Plan: Acute on chronic renal failure stage 4 with baseline creatinine of 1.8 mg/dL due to acute tubular necrosis, started on hemodialysis on 09/21/2023, and 09/22/2023, renal function is stable, in negative balance, Acute hypoxemic respiratory failure with pulmonary congestion and bilateral effusion, in negative balance Hypotension, on midodrine Acute on chronic systolic congestive heart failure with EF of 40-45%, [id number] MR and moderate TR Anemia, on Aranesp and iron, Hematochezia, refused GI workup Thrombocytopenia, fibrin split product was elevated, fibrinogen was 324, haptoglobin was not suppressed , thrombocytopenia is improving Gross hematuria, seen by Urology, cystoscopy and retrograde pyelogram as outpatient, the urine is clear Atrial fibrillation , rate is controlled Metabolic alkalosis Plan Okay to discharge, decrease Bumex to 2 mg daily and potassium chloride to 20 mEq b.i.d. Follow-up in our office in 2 weeks with BMP CBC magnesium and phosphate Interval history, Vitals: 10/03/23 2017 10/03/23 2330 10/04/23 0308 10/04/23 0700 BP: 104/54 116/72 117/66 121/58 Pulse: 94 85 88 84 Resp: 16 15 16 16 Temp: 36.5 C (97.7 F) 36.6 C (97.9 F) 36.8 C (98.3 F) 36.6 C (97.9 F) TempSrc: Oral Oral Oral Oral SpO2: 92% 93% 93% 94% Weight: Height: Intake/Output: Intake/Output Summary (Last 24 hours) at 10/04/2023 1038 Last data filed at 10/04/2023 0800 Gross per 24 hour Intake 240 ml Output 3600 ml Net -3360 ml Physical Exam: General appearance: alert in no acute distress. Head: Normocephalic, without obvious abnormality, atraumatic Eyes: Conjunctivae unremarkable, pupils reactive Neck: No JVD, no carotid bruit, neck supple, trachea midline cardiovascular: Irregular in rate and rhythm Respiratory: Decreased breathing sounds at the bases Gastrointestinal: no tenderness, no guarding, no hepatosplenomegaly could be appreciated. Muscloskeletal: + LE edema, no active arthritis, normal range of movement Neurology: Moves all extremities, alert oriented Skin: no rash, no petechia Psychiatric, no anxiety, no suicidal ideas Lymphatic: no lymphadenopathy, no lymphedema Inpatient Meds: bumetanide, 2 mg, oral, BID AC darbepoetin stefania (ARANESP) injection, 100 mcg, subcutaneous, Weekly folic acid, 1 mg, oral, Daily insulin lispro, 2-10 Units, subcutaneous, With meals and nightly [START ON 10/05/2023] metOLazone, 2.5 mg, oral, Weekly metoprolol tartrate, 50 mg, oral, BID midodrine, 10 mg, oral, TID pantoprazole, 40 mg, oral, QAM AC potassium chloride, 40 mEq, oral, BID sennosides-docusate sodium, 2 tablet, oral, Nightly sodium chloride, 10 mL, intravenous, Q96H sodium chloride, 10 mL, intravenous, Q96H sodium chloride, 10 mL, intravenous, Q8H AND sodium citrate, 2 mL, intravenous, Q8H AND sodium chloride, 10 mL, intravenous, PRN AND sodium chloride, 10 mL, intravenous, PRN AND sodium citrate, 2 mL, intravenous, PRN sodium chloride, 3 mL, intravenous, Q12H sodium citrate, 2 mL, intravenous, Q96H sodium citrate, 2 mL, intravenous, Q96H dextrose 5 % in water, 100 mL/hr sodium chloride 0.9 %, 10 mL/hr, Last Rate: Stopped (09/29/23 0141) sodium chloride 0.9 %, 10 mL/hr, Last Rate: Stopped (09/25/23 0130) sodium chloride 0.9 %, 10 mL/hr, Last Rate: Stopped (10/01/23 1507) sodium chloride 0.9 %, 20 mL/hr, Last Rate: 20 mL/hr (10/03/23 0853) sodium chloride 0.9 %, 250 mL sodium chloride 0.9 %, 250 mL Nutrition: Dietary Orders (From admission, onward) Start Ordered 09/26/23 1343 Adult diet Regular Texture; Consistent Carb 210 grams (1800 kcal); Low Phosphorus (800-1000 mg); Fluid Restriction 1500 mL Diet effective now Question Answer Comment Diet Type: Regular Texture Carbohydrate Modifiers: Consistent Carb 210 grams (1800 kcal) Renal Modifiers: Low Phosphorus (800-1000 mg) Fluid Restrictions: Fluid Restriction 1500 mL 09/26/23 1342 09/24/23 1425 Adult nutrition supplements Continuous Question Answer Comment Diet Type or Consistency: Regular Texture Select Supplement: Renal Oral Supplement Supplement Frequency: BID 09/24/23 1424 Labs: Results from last 7 days Lab Units 10/04/23 0610 10/03/23 0910 10/03/23 0529 10/02/23 0800 10/01/23 0620 09/30/23 1526 09/30/23 0315 09/29/23 0224 09/28/23 0230 SODIUM mmol/L 145 -- 140 141 143 -- 147* 150* 148* POTASSIUM mmol/L 3.5 3.4* 3.2* 3.7 3.9 < > 3.3* 3.2* 3.2* CHLORIDE mmol/L 91* -- 91* 93* 97* -- 101 105 104 CO2 mmol/L 38* -- 37* 34* 36* -- 34* 32 30 BUN mg/dL 73* -- 78* 77* 77* -- 83* 87* 86* CREATININE mg/dL 2.18* -- 2.40* 2.42* 2.52* -- 2.72* 3.03* 3.24* CALCIUM mg/dL 8.6 -- 8.2* 8.2* 8.4* -- 8.2* 8.4* 8.7 MAGNESIUM mg/dL 1.9 -- -- 2.2 2.5 -- 1.9 1.8 2.0 PHOSPHORUS mg/dL -- -- -- 2.8 2.9 -- 3.1 3.7 5.3* < > = values in this interval not displayed. Results from last 7 days Lab Units 10/04/23 0610 10/03/23 0529 10/02/23 0800 10/01/23 1730 10/01/23 0620 WBC X10E9/L 5.9 -- 6.9 -- 8.4 HEMOGLOBIN g/dL 9.5* 8.0* 8.1* -- 8.0* HEMATOCRIT % 28.9* -- 24.9* -- 24.0* PLATELETS X10E9/L 155 131* 132* < > 135* < > = values in this interval not displayed. Results from last 7 days Lab Units 10/04/23 0610 10/02/23 0800 10/01/23 0620 MAGNESIUM mg/dL 1.9 2.2 2.5 Lab Results Component Value Date CALCIUM 8.6 10/04/2023 Lab Results Component Value Date IRON 271 (H) 09/24/2023 TIBC 312 09/24/2023 FERRITIN 150 09/24/2023 Problem list Acute on chronic renal failure stage 4 in August 2023 with baseline serum creatinine of 1.8 mg/dL in 2020, the serum creatinine peaked at 6.5 mg/dL and she required 2 sessions of hemodialysis, then the creatinine stabilized at 2.5 mg/dL, renal workup included renal ultrasound from 09/04/2023 showing right kidney 10.8 cm, left kidney 10.9 cm, no hydronephrosis noted. The urinalysis revealed more than 720 RBC and 185 WBC per high-power field, urine protein creatinine ratio was 16.8, FENA was more than 2%, TERRANCE, anti-GBM and vasculitis profile were negative, serum complements were within normal, serum protein electrophoresis unremarkable Shock in August 2023 Acute respiratory failure with bilateral pulmonary infiltrate ventilator in August 2023 Atrial fibrillation with history of ablation on chronic anticoagulation Diabetes mellitus type 2 Coronary artery disease, cardiac catheterization in 1999 21 revealed proximal LAD to mid LAD had 50% stenosis, the left circumflex had 50% proximal to mid lesion, the right coronary artery had 65% ostial to mid lesion Obesity Chronic systolic congestive heart failure Injury to the back Tonsillectomy Myringotomy tube LILIA COX MD [facility] ANY QUESTIONS FEEL FREE TO CALL: 1. OFFICE [phone] 2. ANSWERING SERVICE:[phone] This note was created with the assistance of a speech-recognition program. Although the intention is to generate a document that actually reflects the content of the visit, no guarantees can be provided that every mistake has been identified and corrected by editing. Images from the original note were not included. [facility] Hospitalists Progress Note 10/04/2023 Patient Name: Harris Castrejon : 1955 Hospital Day: 15 SUBJECTIVE Follow-up for weakness The patient seen and examined. No acute events over night. No chest pain, palpitations or dizziness. Past Medical History: Diagnosis Date Arrhythmia Hypertension Injury of back Disc L4 and L5 Obesity Systolic and diastolic CHF, acute ([facility]) 09/03/2023 Visual impairment Past Surgical History: Procedure Laterality Date Cardiac catheterization 02/16/2021 Performed by Kelli Su MD at [facility] CARDIAC CATH LABS Caval Tricuspid Isthmus RFA, Carto w/ICE N/A 03/21/2021 Performed by Lurdes Weinberg MD at [facility] HR (EP) Coronary angiogram and left ventricular gram/pressure N/A 02/16/2021 Performed by Kelli Su MD at [facility] CARDIAC CATH LABS Coronary fractional flow reserve N/A 02/16/2021 Performed by Kelli Su MD at [facility] CARDIAC CATH LABS Intravascular pressure measurement first vessel each additional vessel (fractional flow reserve) N/A 02/16/2021 Performed by Kelli Su MD at [facility] CARDIAC CATH LABS MYRINGOTOMY W/ TUBES TONSILLECTOMY OBJECTIVE Vital Signs: Temp: [36.4 C (97.6 F)-36.8 C (98.3 F)] 36.4 C (97.6 F) Pulse: [81-97] 97 Resp: [15-16] 15 BP: (104-121)/(54-72) 110/68 SpO2: [90 %-97 %] 97 % O2 Device: None (Room air) O2 Flow Rate (L/min): [0 L/min] 0 L/min Weight: Body mass index is 41.31 kg/m . Admission weight: 131.8 kg (290 lb 9.1 oz) Wt Readings from Last 3 Encounters: 10/03/23 112.6 kg (248 lb 3.8 oz) 09/19/23 132 kg (291 lb) 09/05/23 114.3 kg (252 lb) Input/Output: Intake/Output Summary (Last 24 hours) at 10/04/2023 1448 Last data filed at 10/04/2023 0800 Gross per 24 hour Intake 240 ml Output 3000 ml Net -2760 ml Physical Exam: General appearance: Alert, cooperative, no distress. Eyes: PERRLA, EOM's intact Conjunctiva/corneas moist and clear, no pallor or icterus. ENT: Oropharynx clear with moist mucous membranes and no mucosal ulcerations. No thrush. External ears and nose are normal without lesions or scars. Respiratory: Normal work of breathing. No use of accessory muscles. No wheezing, rhonchi or crackles. Cardiovascular: irregularly irregular, rate between 90-110 S1, S2 normal, no murmur, rub or gallop. Abdomen: Soft, non-tender, no masses. No hernia. No hepatosplenomegaly. Skin: No rashes, lesions or ulcers. No induration or subcutaneous nodules. Labs/Imaging: Recent Results (from the past 24 hour(s)) Bedside Glucose *Place/Obtain serum glucose if >500(>600 [facility]) per glucometer. Collection Time: 10/03/23 4:10 PM Result Value Ref Range Bedside glucose 119 (H) 65 - 99 mg/dL Bedside Glucose *Place/Obtain serum glucose if >500(>600 [facility]) per glucometer. Collection Time: 10/03/23 9:24 PM Result Value Ref Range Bedside glucose 113 (H) 65 - 99 mg/dL Protime & INR Collection Time: 10/04/23 6:10 AM Result Value Ref Range Protime 18.7 (H) 9.8 - 13.2 sec Inr 1.6 (H) 0.8 - 1.1 CBC auto differential Collection Time: 10/04/23 6:10 AM Result Value Ref Range White Blood Cells 5.9 4.0 - 11.0 X10E9/L RBC count 3.05 (L) 3.80 - 5.20 X10E12/L Hemoglobin 9.5 (L) 11.7 - 15.5 g/dL Hematocrit 28.9 (L) 35 - 47 % MCV 95 80 - 100 fL MCH 31.3 27 - 34 pg MCHC 33.0 32 - 36 g/dL RDW 20.4 (H) 11.5 - 15.0 % Platelets 155 150 - 450 X10E9/L MPV 9.4 7 - 12 fL % neutrophils 73.5 % % lymphocytes 12.7 % % monocytes 10.7 % % eosinophils 2.1 % % Basophils 1.0 % Neutrophils Absolute (A) 4.3 1.5 - 6.6 X10E9/L Lymphocytes Absolute 0.7 (L) 1.0 - 3.5 X10E9/L Monocytes Absolute 0.6 0 - 0.9 X10E9/L Eosinophils Absolute 0.1 0.0 - 0.4 X10E9/L Basophils Absolute 0.1 0.0 - 0.2 X10E9/L Basic Metabolic Panel Collection Time: 10/04/23 6:10 AM Result Value Ref Range Sodium 145 134 - 146 mmol/L Potassium, Bld 3.5 3.5 - 5.0 mmol/L Chloride 91 (L) 98 - 109 mmol/L CO2 38 (H) 22 - 32 mmol/L Anion gap 16 (H) 5 - 15 mmol/L BUN 73 (H) 5 - 27 mg/dL Creatinine 2.18 (H) 0.40 - 1.00 mg/dL Glucose 103 (H) 65 - 99 mg/dL Calcium 8.6 8.5 - 10.5 mg/dL eGFR (CKD-EPI)non-race dependent 24 (L) >59 ml/min/1.73sq.m Magnesium Collection Time: 10/04/23 6:10 AM Result Value Ref Range Magnesium 1.9 1.8 - 2.6 mg/dL Bedside Glucose *Place/Obtain serum glucose if >500(>600 MRH) per glucometer. Collection Time: 10/04/23 8:22 AM Result Value Ref Range Bedside glucose 108 (H) 65 - 99 mg/dL Bedside Glucose *Place/Obtain serum glucose if >500(>600 MRH) per glucometer. Collection Time: 10/04/23 12:21 PM Result Value Ref Range Bedside glucose 127 (H) 65 - 99 mg/dL Microbiology Results No results found for the last 168 hours. No results found. All available laboratory, imaging, and microbiology data has been personally reviewed in detail, and accessible in full per EMR. Medications: acetaZOLAMIDE, 500 mg, oral, BID bumetanide, 2 mg, oral, BID AC darbepoetin stefania (ARANESP) injection, 100 mcg, subcutaneous, Weekly folic acid, 1 mg, oral, Daily insulin lispro, 2-10 Units, subcutaneous, With meals and nightly [START ON 10/05/2023] metOLazone, 2.5 mg, oral, Weekly metoprolol tartrate, 50 mg, oral, BID midodrine, 10 mg, oral, TID pantoprazole, 40 mg, oral, QAM AC potassium chloride, 40 mEq, oral, BID sennosides-docusate sodium, 2 tablet, oral, Nightly sodium chloride, 10 mL, intravenous, Q96H sodium chloride, 10 mL, intravenous, Q96H sodium chloride, 10 mL, intravenous, Q8H AND sodium citrate, 2 mL, intravenous, Q8H AND sodium chloride, 10 mL, intravenous, PRN AND sodium chloride, 10 mL, intravenous, PRN AND sodium citrate, 2 mL, intravenous, PRN sodium chloride, 3 mL, intravenous, Q12H sodium citrate, 2 mL, intravenous, Q96H sodium citrate, 2 mL, intravenous, Q96H Infusion: dextrose 5 % in water, 100 mL/hr sodium chloride 0.9 %, 10 mL/hr, Last Rate: Stopped (09/29/23 0141) sodium chloride 0.9 %, 10 mL/hr, Last Rate: Stopped (09/25/23 0130) sodium chloride 0.9 %, 10 mL/hr, Last Rate: Stopped (10/01/23 1507) sodium chloride 0.9 %, 20 mL/hr, Last Rate: 20 mL/hr (10/03/23 0853) sodium chloride 0.9 %, 250 mL sodium chloride 0.9 %, 250 mL PRN medications: calcium gluconate OR calcium gluconate OR calcium gluconate dextrose dextrose 5 % in water [COMPLETED] insulin regular AND dextrose 50 % in water (D50W) AND dextrose 50 % in water (D50W) dextrose 50 % in water (D50W) glucagon (human recombinant) magnesium sulfate OR magnesium sulfate metoprolol (LOPRESSOR) IV midodrine potassium chloride OR potassium chloride potassium chloride in water OR potassium chloride in water sodium phosphate IV OR sodium phosphate IV - central line OR sod phos di, mono-K phos mono sodium chloride sodium chloride sodium chloride sodium chloride sodium chloride AND sodium citrate AND sodium chloride AND sodium chloride AND sodium citrate sodium chloride 0.9 % sodium chloride 0.9 % sodium chloride 0.9 % sodium chloride 0.9 % sodium citrate sodium citrate ASSESSMENT and plan: Active Hospital Problems Diagnosis Date Noted Acute kidney injury ([facility]) 09/20/2023 Resolved Problems No resolved problems to display. Circulatory shock- resolved Required ICU stay and vasopressor support Continue midodrine 10 mg, decreased frequency to Q 8 Monitor Hematochezia One episode of hematochezia 09/24. Nursing staff reported 3 dark bowel movements overnight after initiation of heparin drip Hemoglobin remains stable Patient refused EGD/colonoscopy and GI signed off Continue Protonix BID No anticoagulation for at least 2 weeks after discharge until evaluated by Cardiology and GI Monitor Hematuria Resolved Continue to monitor Urology referral outpatient Supratherapeutic INR on presentation s/p vitamin K reversal Acute on chronic thrombocytopenia-resolved Etiology multifactor: Bone marrow suppression in the setting of acute infection and blood loss, possible underlying chronic ITP Monitor CBC, transfuse platelets if balance below 20,000 Outpatient follow-up with Hematology Atrial fibrillation with RVR Heart rate at rest between 90 and 110 Digoxin discontinued in the setting of CKD Appreciate EP recommendations Continue metoprolol 50 mg b.i.d. Anticoagulation plan discussed with patient and Cardiology Service, unfortunately this is a tricky situation, but at this time I believe risk of bleeding with AC outweigh benefits. Plan to hold anticoagulation for 2 weeks after discharge, risks versus benefits to be re-evaluated outpatient by PCP , Cardiology and GI. Patient will need to follow up with cardiology for watchman eval. Acute kidney injury on CKD stage 4 requiring TISSUE SPECIALIST-improving Received 2 sessions of hemodialysis 09/21, 09/22 with improvement in kidney function Continue diuretic therapy per nephrology Monitor BMP and urine output, avoid nephrotoxic medications Nephrology following Acute hypoxic respiratory failure requiring NIPPV secondary to volume overload Off oxygen Monitor Acute on chronic systolic heart failure Nonobstructive CAD Continue p.o. Bumex 2mg BID and metolazone 2.5 mg weekly Strict I&O Salt and fluid restriction Optimization of goal-directed medical therapy outpatient with improvement of blood pressure Hyponatremia Resolved Type 2 diabetes mellitus Continue sliding scale Debility PT/OT DVT prophylaxis: Heparin drip Code Status: Full code Disposition: Discharge home tomorrow with home health Current care plan discussed in detail with the patient and family at bedside. They verbalized understanding. Further management will follow based on the clinical course of the patient and results of ongoing evaluation Electronically signed by: ELVI SCHREIBER MD 10/04/2023 Disclaimer Note: To increase efficiency, your provider may have prepared this document using voice recognition technology. In that case, if a word or phrase is confusing, or does not make sense, this is likely due to a recognition error within the program which was not discovered during the provider s review. If you believe an error has occurred, please notify your provider s office at your earliest convenience, so we can correct any mistakes. Images from the original note were not included. [facility] [address] [place] [address] PROGRESS NOTE Harris Castrejon does not have any acute concerns but states she is feeling little face GABI and is hopeful to go home today. SUBJECTIVE Allergies: No Known Allergies CURRENT MEDICATIONS bumetanide, 2 mg, oral, BID AC darbepoetin stefania (ARANESP) injection, 100 mcg, subcutaneous, Weekly folic acid, 1 mg, oral, Daily insulin lispro, 2-10 Units, subcutaneous, With meals and nightly [START ON 10/05/2023] metOLazone, 2.5 mg, oral, Weekly metoprolol tartrate, 50 mg, oral, BID midodrine, 10 mg, oral, TID pantoprazole, 40 mg, oral, QAM AC potassium chloride, 40 mEq, oral, BID sennosides-docusate sodium, 2 tablet, oral, Nightly sodium chloride, 10 mL, intravenous, Q96H sodium chloride, 10 mL, intravenous, Q96H sodium chloride, 10 mL, intravenous, Q8H AND sodium citrate, 2 mL, intravenous, Q8H AND sodium chloride, 10 mL, intravenous, PRN AND sodium chloride, 10 mL, intravenous, PRN AND sodium citrate, 2 mL, intravenous, PRN sodium chloride, 3 mL, intravenous, Q12H sodium citrate, 2 mL, intravenous, Q96H sodium citrate, 2 mL, intravenous, Q96H CONTINUOUS INFUSIONS dextrose 5 % in water, 100 mL/hr sodium chloride 0.9 %, 10 mL/hr, Last Rate: Stopped (09/29/23 0141) sodium chloride 0.9 %, 10 mL/hr, Last Rate: Stopped (09/25/23 0130) sodium chloride 0.9 %, 10 mL/hr, Last Rate: Stopped (10/01/23 1507) sodium chloride 0.9 %, 20 mL/hr, Last Rate: 20 mL/hr (10/03/23 0853) sodium chloride 0.9 %, 250 mL sodium chloride 0.9 %, 250 mL Review of Systems: Cardiovascular: No chest pain, dyspnea on exertion, palpitations or loss of consciousness. No cough, hemoptysis, pleuritic pain, or phlebitis. Respiratory: No cough or wheezing, no sputum production, no hematemesis. Neurological: No headache, diplopia, change in muscle strength, numbness or tingling. No change in gait, balance, coordination, mood, affect, memory, mentation, behavior. Hematologic/Lymphatic: No abnormal bruising or bleeding, blood clots or swollen lymph nodes. OBJECTIVE CBC: Results from last 7 days Lab Units 10/04/23 0610 10/03/23 0529 10/02/23 0810/01/23 1730 10/01/23 0620 WBC X10E9/L 5.9 -- 6.9 -- 8.4 HEMOGLOBIN g/dL 9.5* 8.0* 8.1* -- 8.0* HEMATOCRIT % 28.9* -- 24.9* -- 24.0* MCV fL 95 -- 96 -- 95 PLATELETS X10E9/L 155 131* 132* < > 135* < > = values in this interval not displayed. BMP: Results from last 7 days Lab Units 10/04/23 0610 10/03/23 0910 10/03/23 0529 10/02/23 0800 10/01/23 0620 09/30/23 1526 09/30/23 0315 SODIUM mmol/L 145 -- 140 141 143 -- 147* POTASSIUM mmol/L 3.5 3.4* 3.2* 3.7 3.9 < > 3.3* CHLORIDE mmol/L 91* -- 91* 93* 97* -- 101 CO2 mmol/L 38* -- 37* 34* 36* -- 34* BUN mg/dL 73* -- 78* 77* 77* -- 83* CREATININE mg/dL 2.18* -- 2.40* 2.42* 2.52* -- 2.72* CALCIUM mg/dL 8.6 -- 8.2* 8.2* 8.4* -- 8.2* PHOSPHORUS mg/dL -- -- -- 2.8 2.9 -- 3.1 MAGNESIUM mg/dL 1.9 -- -- 2.2 2.5 -- 1.9 < > = values in this interval not displayed. PT/INR: Results from last 7 days Lab Units 10/04/23 0610 10/03/23 0529 10/02/23 0800 PROTIME sec 18.7* 20.2* 21.0* INR 1.6* 1.8* 1.8* APTT: MAG: Results from last 7 days Lab Units 10/04/23 0610 10/02/23 0800 10/01/23 0620 MAGNESIUM mg/dL 1.9 2.2 2.5 D Dimer: Troponin I ProBNP Lipid Panel: Lab Results Component Value Date CHOL 127 (L) 09/13/2021 TRIG 159 (H) 09/13/2021 HDL 38 (L) 09/13/2021 Liver Panel: No results found for: ALB HgA1C: Lab Results Component Value Date HGBA1C 6.3 (H) 09/29/2023 ABG: Lab Results Component Value Date pH 7.431 09/27/2023 PCO2 37.8 09/27/2023 PO2 73 (L) 09/27/2023 Base,Excess 1.0 09/27/2023 Base,Deficit 3.0 (H) 09/23/2023 Portable HCO3 25.1 09/27/2023 SPO2 100 09/27/2023 CV TESTING HISTORY: ECHO: Echo complete W/ contrast Result Date: 09/04/2023 Left Ventricle: There is mild concentric increased wall thickness/hypertrophy. Systolic function is mildly to moderately decreased with an ejection fraction of 40-45%. Mitral Valve: There is mild to moderate regurgitation with a centrally directed and a posteriorly directed jet. There is no evidence of mitral valve stenosis. Tricuspid Valve: There is moderate regurgitation. The tricuspid valve regurgitation jet is eccentric. There is no evidence of tricuspid valve stenosis. STRESS: No results found. HOLTER: No results found. CARDIAC CATH: No results found. CAROTID: No results found. CXR: X-ray chest 1 view Result Date: 09/30/2023 XR CHEST 1 VW HISTORY: CHF and pulmonary congestion. Follow-up exam COMPARISON: Prior study from the day before. FINDINGS: AP portable upright view of the chest The trachea is midline. Cardiomediastinal contour is mildly enlarged with bilateral hilar congestion. Left retrocardiac consolidation. No pleural effusion or pneumothorax. No change in right IJ central line with the tip in the SVC. IMPRESSION: * Low lung volumes and decompensated CHF similar to prior study. Finalized by Vida Jiménez MD on 09/30/2023 8:05 AM X-ray chest 1 view Result Date: 09/29/2023 Clinical History: Congestion. Portable Upright chest: 09/29/2023 Comparison: 09/28/2023 Findings: A single portable view of the chest was obtained. Right IJ catheter remains in the mid SVC region. There is cardiac prominence with vascular distention centrally and indistinct vascular margins. Confluent basilar opacities persist with no definite change. There is no pneumothorax. Pleural effusions are likely bilaterally IMPRESSION: Persistent vascular congestion with grossly stable basilar infiltrates and probable pleural effusions. Finalized by Jamaal Cormier MD on 09/29/2023 8:09 AM X-ray chest 1 view Result Date: 09/28/2023 Clinical History: Congestion. Edema. Portable Upright chest: 09/28/2023 Comparison: 09/27/2023 Findings: A single portable view of the chest was obtained. Right IJ catheter is in mid trachea. Cardiac silhouette is prominent with stable mediastinal contours. This vascular distention and indistinct appearance centrally with persistent perihilar and basilar infiltrates. No pneumothorax or large pleural effusion is present. IMPRESSION: Vascular congestion with persistent basilar infiltrates and pleural effusions. Finalized by Jamaal Cormier MD on 09/28/2023 7:29 AM X-ray chest 1 view Result Date: 09/27/2023 Single view chest History:sob Difficulty breathing, shortness of breath Comparison: 09/22/2023 Findings: Single portable view of the chest. Stable cardia mediastinal silhouette. Right jugular catheter stable. Mild vascular congestion and edema and small pleural effusions, stable. Impression: No significant interval change. Finalized by Krystal Anderson MD on 09/27/2023 10:45 AM X-ray chest 1 view Result Date: 09/22/2023 Procedure: Chest x-ray performed Number of views:1 History:Shortness of breath Comparison:09/21/2023 Impression: 1. Tubes and lines are stable. Congestion and effusions are present. These are slightly increased. The cardiac silhouette remains enlarged. There is no pneumothorax. Finalized by Jose Tinoco MD on 09/22/2023 1:32 PM X-ray chest 1 view Result Date: 09/21/2023 HISTORY AND/OR TECH NOTES line placement PROCEDURE AP chest at 10:32 AM COMPARISON September 20 FINDINGS Right central line placement to the mid SVC No visible pneumothorax There is cardiomediastinal prominence with increased perihilar congestion and granular opacity There is increase in confluent opacity in left greater than right lung base Probable small effusions IMPRESSION: Right central line placement mid SVC without visible pneumothorax Worsening congestive change and probable edema and atelectasis left worse than right with trace effusions Suggest follow-up imaging to document clearing and normalization when appropriate ----- Finalized by Charlie Mendoza MD on 09/21/2023 10:45 AM X-ray chest 1 view Result Date: 09/20/2023 Single view chest XR CHEST 1 VW History: weakness Comparison: September 03 Impression: * No consolidation or pleural fluid. No acute findings. Moderate cardiomegaly Finalized by Watson Ceja MD on 09/20/2023 1:42 AM X-ray chest 1 view Result Date: 09/03/2023 XR CHEST 1 VW CLINICAL INFORMATION: Shortness of breath, evaluate for fluid overload. COMPARISON: 02/08/21. IMPRESSION: * Mild vascular congestion with midlung and basilar atelectatic changes. Trace effusions. Mild cardiomegaly. Finalized by Tian Jones MD on 09/03/2023 2:25 PM TELEMETRY: Atrial fibrillation with heart rates in the 90s to low 100s PHYSICAL EXAM Admission Weight: Weight: 131.8 kg (290 lb 9.1 oz) I/O last 3 completed shifts: In: 5016.9 [P.O.:240; I.V.:4776.9] Out: 5250 [Urine:5250] Weight change: Wt Readings from Last 3 Encounters: 10/03/23 112.6 kg (248 lb 3.8 oz) 09/19/23 132 kg (291 lb) 09/05/23 114.3 kg (252 lb) Vitals: Vitals: 10/03/23 2017 10/03/23 2330 10/04/23 0308 10/04/23 0700 BP: 104/54 116/72 117/66 121/58 Pulse: 94 85 88 84 Resp: 16 15 16 16 Temp: 36.5 C (97.7 F) 36.6 C (97.9 F) 36.8 C (98.3 F) 36.6 C (97.9 F) TempSrc: Oral Oral Oral Oral SpO2: 92% 93% 93% 94% Weight: Height: Admit Weight Weight: 131.8 kg (290 lb 9.1 oz) Last 3 Weights Last 3 Weight Readings 09/30/23 0500 10/02/23 0603 10/03/23 0500 Weight: 114.8 kg (253 lb 1.4 oz) 112.8 kg (248 lb 10.9 oz) 112.6 kg (248 lb 3.8 oz) Body mass index is 41.31 kg/m . INTAKE/OUTPUT I/O last 3 completed shifts: In: 5016.9 [P.O.:240; I.V.:4776.9] Out: 5250 [Urine:5250] Intake/Output Summary (Last 24 hours) at 10/04/2023 1009 Last data filed at 10/04/2023 0800 Gross per 24 hour Intake 240 ml Output 3600 ml Net -3360 ml General appearance: Alert oriented and cooperative, In no acute distress Lungs: Clear to ausculation bilaterally, no use of accessory muscles Heart:: Irregularly irregular with normal S1 and S2, no murmurs and no gallops. 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 Nonobstructive CAD per [facility] in 2020 with negative IFR but did have moderate disease that was not explainable for LV dysfunction at the time Supratherapeutic INR of 16 earlier this admission BRANDEE on CKD initiated on hemodialysis 09/21/2023 which has been held with good response to oral diuresis Anemia of chronic disease with acute hematochezia this admission, stable Thrombocytopenia, concern for 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 She has been tolerating metoprolol 50 mg twice daily with her blood pressure but also is on midodrine for blood pressure support. Discussed with attending and he would like EP to evaluate for help with rate/rhythm management. Patient still not on anticoagulation as she presented with INR 16.6 and had hemoglobin dropped to 7.4 with both hematochezia and hematuria earlier this admission and refused EGD/colonoscopy. Plan was to hold anticoagulation for another week and reassess. Consider outpatient Watchman evaluation. AMRITA LIRA PA-C This note was completed using a voice workforce management manager system. Every effort was made to ensure accuracy. However, inadvertent computerized workforce management manager errors may be present. Amrita Lira PA-C 10/04/23 1113 Images from the original note were not included. Nephrology Daily Progress Note The events of last night reviewed, chart and all new entries , new tests reviewed Impression/Plan: Acute on chronic renal failure stage 4 with baseline creatinine of 1.8 mg/dL due to acute tubular necrosis, started on hemodialysis on 09/21/2023, and 09/22/2023, renal function is stable, in negative balance, Trialysis catheter can be removed Acute hypoxemic respiratory failure with pulmonary congestion and bilateral effusion, in negative balance Hypotension, on midodrine Acute on chronic systolic congestive heart failure with EF of 40-45%, [id number] MR and moderate TR Anemia, on Aranesp and iron, Hematochezia, refused GI workup Thrombocytopenia, fibrin split product was elevated, fibrinogen was 324, haptoglobin was not suppressed , thrombocytopenia is improving Gross hematuria, seen by Urology, cystoscopy and retrograde pyelogram as outpatient, the urine is clear Atrial fibrillation , rate is controlled Plan Increase potassium chloride to 40 mEq b.i.d. Interval history, Vitals: 10/03/23 0410 10/03/23 0500 10/03/23 0800 10/03/23 1100 BP: 104/62 105/65 Pulse: 89 87 79 Resp: 16 16 Temp: 36.5 C (97.7 F) 36.8 C (98.3 F) TempSrc: Oral Oral SpO2: 93% 94% Weight: 112.6 kg (248 lb 3.8 oz) Height: Intake/Output: Intake/Output Summary (Last 24 hours) at 10/03/2023 1500 Last data filed at 10/03/2023 1200 Gross per 24 hour Intake 4776.85 ml Output 3050 ml Net 1726.85 ml Physical Exam: General appearance: alert in no acute distress. Head: Normocephalic, without obvious abnormality, atraumatic Eyes: Conjunctivae unremarkable, pupils reactive Neck: No JVD, no carotid bruit, neck supple, trachea midline cardiovascular: Irregular in rate and rhythm Respiratory: Decreased breathing sounds at the bases Gastrointestinal: no tenderness, no guarding, no hepatosplenomegaly could be appreciated. Muscloskeletal: + LE edema, no active arthritis, normal range of movement Neurology: Moves all extremities, alert oriented Skin: no rash, no petechia Psychiatric, no anxiety, no suicidal ideas Lymphatic: no lymphadenopathy, no lymphedema Inpatient Meds: bumetanide, 2 mg, oral, BID AC darbepoetin stefania (ARANESP) injection, 100 mcg, subcutaneous, Weekly digoxin, 250 mcg, intravenous, Once [START ON 10/04/2023] digoxin, 125 mcg, oral, Daily folic acid, 1 mg, oral, Daily insulin lispro, 2-10 Units, subcutaneous, With meals and nightly [START ON 10/05/2023] metOLazone, 2.5 mg, oral, Weekly metoprolol tartrate, 50 mg, oral, BID midodrine, 10 mg, oral, Q6H pantoprazole, 40 mg, oral, QAM AC potassium chloride, 20 mEq, oral, BID sennosides-docusate sodium, 2 tablet, oral, Nightly sodium chloride, 10 mL, intravenous, Q96H sodium chloride, 10 mL, intravenous, Q96H sodium chloride, 10 mL, intravenous, Q8H AND sodium citrate, 2 mL, intravenous, Q8H AND sodium chloride, 10 mL, intravenous, PRN AND sodium chloride, 10 mL, intravenous, PRN AND sodium citrate, 2 mL, intravenous, PRN sodium chloride, 3 mL, intravenous, Q12H sodium citrate, 2 mL, intravenous, Q96H sodium citrate, 2 mL, intravenous, Q96H dextrose 5 % in water, 100 mL/hr sodium chloride 0.9 %, 10 mL/hr, Last Rate: Stopped (09/29/23 0141) sodium chloride 0.9 %, 10 mL/hr, Last Rate: Stopped (09/25/23 0130) sodium chloride 0.9 %, 10 mL/hr, Last Rate: Stopped (10/01/23 1507) sodium chloride 0.9 %, 20 mL/hr, Last Rate: 20 mL/hr (10/03/23 0853) sodium chloride 0.9 %, 250 mL sodium chloride 0.9 %, 250 mL Nutrition: Dietary Orders (From admission, onward) Start Ordered 09/26/23 1343 Adult diet Regular Texture; Consistent Carb 210 grams (1800 kcal); Low Phosphorus (800-1000 mg); Fluid Restriction 1500 mL Diet effective now Question Answer Comment Diet Type: Regular Texture Carbohydrate Modifiers: Consistent Carb 210 grams (1800 kcal) Renal Modifiers: Low Phosphorus (800-1000 mg) Fluid Restrictions: Fluid Restriction 1500 mL 09/26/23 1342 09/24/23 1425 Adult nutrition supplements Continuous Question Answer Comment Diet Type or Consistency: Regular Texture Select Supplement: Renal Oral Supplement Supplement Frequency: BID 09/24/23 1424 Labs: Results from last 7 days Lab Units 10/03/23 0910 10/03/23 0529 10/02/23 0800 10/01/23 0620 09/30/23 1526 09/30/23 0315 09/29/23 0224 09/28/23 0230 SODIUM mmol/L -- 140 141 143 -- 147* 150* 148* POTASSIUM mmol/L 3.4* 3.2* 3.7 3.9 4.0 3.3* 3.2* 3.2* CHLORIDE mmol/L -- 91* 93* 97* -- 101 105 104 CO2 mmol/L -- 37* 34* 36* -- 34* 32 30 BUN mg/dL -- 78* 77* 77* -- 83* 87* 86* CREATININE mg/dL -- 2.40* 2.42* 2.52* -- 2.72* 3.03* 3.24* CALCIUM mg/dL -- 8.2* 8.2* 8.4* -- 8.2* 8.4* 8.7 MAGNESIUM mg/dL -- -- 2.2 2.5 -- 1.9 1.8 2.0 PHOSPHORUS mg/dL -- -- 2.8 2.9 -- 3.1 3.7 5.3* Results from last 7 days Lab Units 10/03/23 0529 10/02/23 0800 10/01/23 1730 10/01/23 0620 09/30/23 0315 WBC X10E9/L -- 6.9 -- 8.4 9.5 HEMOGLOBIN g/dL 8.0* 8.1* -- 8.0* 7.4* HEMATOCRIT % -- 24.9* -- 24.0* 22.3* PLATELETS X10E9/L 131* 132* 139* 135* 124* Results from last 7 days Lab Units 10/02/23 0810/01/23 0620 09/30/23 0315 MAGNESIUM mg/dL 2.2 2.5 1.9 Lab Results Component Value Date CALCIUM 8.2 (L) 10/03/2023 Lab Results Component Value Date IRON 271 (H) 09/24/2023 TIBC 312 09/24/2023 FERRITIN 150 09/24/2023 Problem list Acute on chronic renal failure stage 4 in August 2023 with baseline serum creatinine of 1.8 mg/dL in 2020, the serum creatinine peaked at 6.5 mg/dL and she required 2 sessions of hemodialysis, then the creatinine stabilized at 2.5 mg/dL, renal workup included renal ultrasound from 09/04/2023 showing right kidney 10.8 cm, left kidney 10.9 cm, no hydronephrosis noted. The urinalysis revealed more than 720 RBC and 185 WBC per high-power field, urine protein creatinine ratio was 16.8, FENA was more than 2%, TERRANCE, anti-GBM and vasculitis profile were negative, serum complements were within normal, serum protein electrophoresis unremarkable Shock in August 2023 Acute respiratory failure with bilateral pulmonary infiltrate ventilator in August 2023 Atrial fibrillation with history of ablation on chronic anticoagulation Diabetes mellitus type 2 Coronary artery disease, cardiac catheterization in 1999 21 revealed proximal LAD to mid LAD had 50% stenosis, the left circumflex had 50% proximal to mid lesion, the right coronary artery had 65% ostial to mid lesion Obesity Chronic systolic congestive heart failure Injury to the back Tonsillectomy Myringotomy tube LILIA COX MD [facility] ANY QUESTIONS FEEL FREE TO CALL: 1. OFFICE [phone] 2. ANSWERING SERVICE:[phone] This note was created with the assistance of a speech-recognition program. Although the intention is to generate a document that actually reflects the content of the visit, no guarantees can be provided that every mistake has been identified and corrected by editing. Images from the original note were not included. [facility] Progress Note 10/03/2023 Patient Name: Harris Castrejon : 1955 Hospital Day: 14 SUBJECTIVE Follow-up for weakness The patient seen and examined. No acute events over night. Patient denies any black tarry stool. She denies chest pain, palpitations and difficulty in breathing. Past Medical History: Diagnosis Date Arrhythmia Hypertension Injury of back Disc L4 and L5 Obesity Systolic and diastolic CHF, acute ([facility]) 09/03/2023 Visual impairment Past Surgical History: Procedure Laterality Date Cardiac catheterization 02/16/2021 Performed by Kelli Su MD at [facility] CARDIAC CATH LABS Caval Tricuspid Isthmus RFA, Carto w/ICE N/A 03/21/2021 Performed by Lurdes Weinberg MD at [facility] HR (EP) Coronary angiogram and left ventricular gram/pressure N/A 02/16/2021 Performed by Kelli Su MD at [facility] CARDIAC CATH LABS Coronary fractional flow reserve N/A 02/16/2021 Performed by Kelli Su MD at [facility] CARDIAC CATH LABS Intravascular pressure measurement first vessel each additional vessel (fractional flow reserve) N/A 02/16/2021 Performed by Kelli Su MD at [facility] CARDIAC CATH LABS MYRINGOTOMY W/ TUBES TONSILLECTOMY OBJECTIVE Vital Signs: Temp: [36.4 C (97.6 F)-36.8 C (98.3 F)] 36.8 C (98.3 F) Pulse: [57-142] 79 Resp: [16-20] 16 BP: (97-112)/(62-98) 105/65 SpO2: [92 %-98 %] 94 % O2 Device: None (Room air) O2 Flow Rate (L/min): [1 L/min] 1 L/min Weight: Body mass index is 41.31 kg/m . Admission weight: 131.8 kg (290 lb 9.1 oz) Wt Readings from Last 3 Encounters: 10/03/23 112.6 kg (248 lb 3.8 oz) 09/19/23 132 kg (291 lb) 09/05/23 114.3 kg (252 lb) Input/Output: Intake/Output Summary (Last 24 hours) at 10/03/2023 1410 Last data filed at 10/03/2023 1200 Gross per 24 hour Intake 4776.85 ml Output 3050 ml Net 1726.85 ml Physical Exam: General appearance: Alert, cooperative, no distress. Eyes: PERRLA, EOM's intact Conjunctiva/corneas moist and clear, n pale conjunctiva ENT: Oropharynx clear with moist mucous membranes and no mucosal ulcerations. No thrush. External ears and nose are normal without lesions or scars. Respiratory: Normal work of breathing. No use of accessory muscles. No wheezing, rhonchi or crackles. Cardiovascular: Regular rate and rhythm, S1, S2 normal, no murmur, rub or gallop. n1+ LE edema. Abdomen: Soft, non-tender, no masses. No hernia. No hepatosplenomegaly. Skin: No rashes, lesions or ulcers. No induration or subcutaneous nodules. Psychiatric: Mood and affect appropriate, Appropriate judgment and insight. Alert and oriented. Labs/Imaging: Recent Results (from the past 24 hour(s)) Bedside Glucose *Place/Obtain serum glucose if >500(>600 [facility]) per glucometer. Collection Time: 10/02/23 2:47 PM Result Value Ref Range Bedside glucose 207 (H) 65 - 99 mg/dL Bedside Glucose *Place/Obtain serum glucose if >500(>600 [facility]) per glucometer. Collection Time: 10/02/23 6:44 PM Result Value Ref Range Bedside glucose 171 (H) 65 - 99 mg/dL Bedside Glucose *Place/Obtain serum glucose if >500(>600 [facility]) per glucometer. Collection Time: 10/02/23 10:49 PM Result Value Ref Range Bedside glucose 143 (H) 65 - 99 mg/dL Protime & INR Collection Time: 10/03/23 5:29 AM Result Value Ref Range Protime 20.2 (H) 9.8 - 13.2 sec Inr 1.8 (H) 0.8 - 1.1 Hemoglobin Collection Time: 10/03/23 5:29 AM Result Value Ref Range Hemoglobin 8.0 (L) 11.7 - 15.5 g/dL Platelet count Collection Time: 10/03/23 5:29 AM Result Value Ref Range Platelets 131 (L) 150 - 450 X10E9/L MPV 9.8 7 - 12 fL Basic Metabolic Panel Collection Time: 10/03/23 5:29 AM Result Value Ref Range Sodium 140 134 - 146 mmol/L Potassium, Bld 3.2 (L) 3.5 - 5.0 mmol/L Chloride 91 (L) 98 - 109 mmol/L CO2 37 (H) 22 - 32 mmol/L Anion gap 12 5 - 15 mmol/L BUN 78 (H) 5 - 27 mg/dL Creatinine 2.40 (H) 0.40 - 1.00 mg/dL Glucose 120 (H) 65 - 99 mg/dL Calcium 8.2 (L) 8.5 - 10.5 mg/dL eGFR (CKD-EPI)non-race dependent 22 (L) >59 ml/min/1.73sq.m Bedside Glucose *Place/Obtain serum glucose if >500(>600 MRH) per glucometer. Collection Time: 10/03/23 8:03 AM Result Value Ref Range Bedside glucose 129 (H) 65 - 99 mg/dL Potassium Collection Time: 10/03/23 9:10 AM Result Value Ref Range Potassium, Bld 3.4 (L) 3.5 - 5.0 mmol/L Bedside Glucose *Place/Obtain serum glucose if >500(>600 MRH) per glucometer. Collection Time: 10/03/23 12:00 PM Result Value Ref Range Bedside glucose 138 (H) 65 - 99 mg/dL Microbiology Results Procedure Component Value Units Date/Time Blood culture #2 [[id number]] (Abnormal) Collected: 09/27/23 0538 Specimen: Blood Updated: 09/29/23 1037 Culture STAPHYLOCOCCUS, COAGULASE NEGATIVE NOT S.LUGDUNENSIS POSSIBLE COLLECTION CONTAMINATION. SINGLE POSITIVE CULTURE IS OF UNCERTAIN CLINICAL SIGNIFICANCE. SUGGEST CONTINUED MONITORING OF REMAINING BLOOD CULTURES. CONTACT MICROBIOLOGY IF FURTHER INFORMATION IS REQUIRED. Staphylococcus species detected by PCR (not S. aureus, S.epidermidis, or S.lugdunensis). Blood culture #1 [[id number]] Collected: 09/27/23 0431 Specimen: Blood Updated: 10/02/23 0546 Specimen Notes ONLY AEROBIC BOTTLE RECEIVED, SUBOPTIMAL VOLUME OF BLOOD COLLECTED, RESULTS MAY BE AFFECTED Culture NO GROWTH 5 DAYS Urine culture [[id number]] Collected: 09/27/23 0405 Specimen: Urine Updated: 09/28/23 0701 Specimen Notes URINE RECEIVED WITHOUT PRESERVATIVE Culture NO GROWTH AT <1000 CFU/mL No results found. All available laboratory, imaging, and microbiology data has been personally reviewed in detail, and accessible in full per EMR. Medications: bumetanide, 2 mg, oral, BID AC darbepoetin stefania (ARANESP) injection, 100 mcg, subcutaneous, Weekly digoxin, 250 mcg, intravenous, Once [START ON 10/04/2023] digoxin, 125 mcg, oral, Daily folic acid, 1 mg, oral, Daily insulin lispro, 2-10 Units, subcutaneous, With meals and nightly [START ON 10/05/2023] metOLazone, 2.5 mg, oral, Weekly metoprolol tartrate, 50 mg, oral, BID midodrine, 10 mg, oral, Q6H pantoprazole, 40 mg, oral, QAM AC potassium chloride, 20 mEq, oral, BID sennosides-docusate sodium, 2 tablet, oral, Nightly sodium chloride, 10 mL, intravenous, Q96H sodium chloride, 10 mL, intravenous, Q96H sodium chloride, 10 mL, intravenous, Q8H AND sodium citrate, 2 mL, intravenous, Q8H AND sodium chloride, 10 mL, intravenous, PRN AND sodium chloride, 10 mL, intravenous, PRN AND sodium citrate, 2 mL, intravenous, PRN sodium chloride, 3 mL, intravenous, Q12H sodium citrate, 2 mL, intravenous, Q96H sodium citrate, 2 mL, intravenous, Q96H Infusion: dextrose 5 % in water, 100 mL/hr sodium chloride 0.9 %, 10 mL/hr, Last Rate: Stopped (09/29/23 0141) sodium chloride 0.9 %, 10 mL/hr, Last Rate: Stopped (09/25/23 0130) sodium chloride 0.9 %, 10 mL/hr, Last Rate: Stopped (10/01/23 1507) sodium chloride 0.9 %, 20 mL/hr, Last Rate: 20 mL/hr (10/03/23 0853) sodium chloride 0.9 %, 250 mL sodium chloride 0.9 %, 250 mL PRN medications: calcium gluconate OR calcium gluconate OR calcium gluconate dextrose dextrose 5 % in water [COMPLETED] insulin regular AND dextrose 50 % in water (D50W) AND dextrose 50 % in water (D50W) dextrose 50 % in water (D50W) glucagon (human recombinant) magnesium sulfate OR magnesium sulfate metoprolol (LOPRESSOR) IV midodrine potassium chloride OR potassium chloride potassium chloride in water OR potassium chloride in water sodium phosphate IV OR sodium phosphate IV - central line OR sod phos di, mono-K phos mono sodium chloride sodium chloride sodium chloride sodium chloride sodium chloride AND sodium citrate AND sodium chloride AND sodium chloride AND sodium citrate sodium chloride 0.9 % sodium chloride 0.9 % sodium chloride 0.9 % sodium chloride 0.9 % sodium citrate sodium citrate ASSESSMENT and plan: Active Hospital Problems Diagnosis Date Noted Acute kidney injury ([facility]) 09/20/2023 Resolved Problems No resolved problems to display. Distributive shock- resolved Etiology not clear Required ICU stay and vasopressor support Currently on midodrine 15 mg q.6, wean down to 10 mg q.6 and monitor Hematochezia One episode of hematochezia 09/24. Nursing staff reported 3 dark bowel movements overnight after initiation of heparin drip Hemoglobin remains stable Stop heparin drip Patient refused EGD/colonoscopy and GI signed off Continue Protonix BID Monitor Hematuria Urine is light yellow today Continue to monitor Urology referral outpatient Supratherapeutic INR on presentation s/p vitamin K reversal Acute on chronic thrombocytopenia Improving Etiology multifactor: Bone marrow suppression in the setting of acute infection and blood loss, possible underlying chronic ITP Monitor CBC, transfuse platelets if balance below 20,000 Outpatient follow-up with Hematology Atrial fibrillation with RVR Continue metoprolol 50 mg b.i.d., received digoxin 250 mg yesterday Awaiting for digoxin levels, plan to load her with digoxin today Anticoagulation discussed with patient and Cardiology at the bedside, unfortunately this is a tricky situation, but at this time I believe risk of bleeding with AC outweigh benefits. Plan to hold anticoagulation for 2 weeks after discharge, risks versus benefits to be re-evaluated outpatient by PCP , Cardiology and GI. Patient will need to follow up with cardiology for watchman eval. Acute kidney injury on CKD stage 4 requiring TISSUE SPECIALIST Received 2 sessions of hemodialysis 09/21, 09/22 with improvement in kidney function Continue diuretic therapy per nephrology Monitor BMP and urine output, avoid nephrotoxic medications Nephrology following Acute hypoxic respiratory failure requiring NIPPV secondary to volume overload Off oxygen Monitor Acute on chronic systolic heart failure Nonobstructive CAD Continue p.o. Bumex 2mg BID and metolazone 2.5 mg weekly Strict I&O Salt and fluid restriction Optimization of goal-directed medical therapy outpatient with improvement of blood pressure Hyponatremia Resolved Type 2 diabetes mellitus Continue sliding scale Debility PT/OT DVT prophylaxis: Heparin drip Code Status: Full code Disposition: Better HR control. Plan to discharge home with home health likely tomorrow. Current care plan discussed in detail with the patient and family at bedside. They verbalized understanding. Further management will follow based on the clinical course of the patient and results of ongoing evaluation Electronically signed by: ELVI SCHREIBER MD 10/03/2023 Disclaimer Note: To increase efficiency, your provider may have prepared this document using voice recognition technology. In that case, if a word or phrase is confusing, or does not make sense, this is likely due to a recognition error within the program which was not discovered during the provider s review. If you believe an error has occurred, please notify your provider s office at your earliest convenience, so we can correct any mistakes. [facility] [address] [place] [address] PROGRESS NOTE Harris Castrejon patient was seen in examined at bedside this morning. No reported cardiac events overnight. Denies any hematochezia or melena overnight. No chest pain or shortness of breath. No orthopnea or edema. No palpitations or dizziness. Hemoglobin 8.0 this morning. Platelets 131. INR 1.8. Creatinine stable. Potassium 3.4. Review of telemetry showing patient in atrial fibrillation, with heart rate in the low 100s. Frequent PVCs noted. Few runs of nonsustained VT longest lasting for 3 beats. SUBJECTIVE Allergies: No Known Allergies CURRENT MEDICATIONS bumetanide, 2 mg, oral, BID AC darbepoetin stefania (ARANESP) injection, 100 mcg, subcutaneous, Weekly folic acid, 1 mg, oral, Daily insulin lispro, 2-10 Units, subcutaneous, With meals and nightly [START ON 10/05/2023] metOLazone, 2.5 mg, oral, Weekly metoprolol tartrate, 50 mg, oral, BID midodrine, 10 mg, oral, Q6H pantoprazole, 40 mg, oral, QAM AC potassium chloride, 20 mEq, oral, BID sennosides-docusate sodium, 2 tablet, oral, Nightly sodium chloride, 10 mL, intravenous, Q96H sodium chloride, 10 mL, intravenous, Q96H sodium chloride, 10 mL, intravenous, Q8H AND sodium citrate, 2 mL, intravenous, Q8H AND sodium chloride, 10 mL, intravenous, PRN AND sodium chloride, 10 mL, intravenous, PRN AND sodium citrate, 2 mL, intravenous, PRN sodium chloride, 3 mL, intravenous, Q12H sodium citrate, 2 mL, intravenous, Q96H sodium citrate, 2 mL, intravenous, Q96H CONTINUOUS INFUSIONS dextrose 5 % in water, 100 mL/hr sodium chloride 0.9 %, 10 mL/hr, Last Rate: Stopped (09/29/23 0141) sodium chloride 0.9 %, 10 mL/hr, Last Rate: Stopped (09/25/23 0130) sodium chloride 0.9 %, 10 mL/hr, Last Rate: Stopped (10/01/23 1507) sodium chloride 0.9 %, 20 mL/hr, Last Rate: Stopped (09/28/23 1045) sodium chloride 0.9 %, 250 mL sodium chloride 0.9 %, 250 mL OBJECTIVE CBC: Results from last 7 days Lab Units 10/03/23 0529 10/02/23 0800 10/01/23 1730 10/01/23 0620 09/30/23 0315 WBC X10E9/L -- 6.9 -- 8.4 9.5 HEMOGLOBIN g/dL 8.0* 8.1* -- 8.0* 7.4* HEMATOCRIT % -- 24.9* -- 24.0* 22.3* MCV fL -- 96 -- 95 95 PLATELETS X10E9/L 131* 132* 139* 135* 124* BMP: Results from last 7 days Lab Units 10/03/23 0529 10/02/23 0800 10/01/23 0620 09/30/23 1526 09/30/23 0315 SODIUM mmol/L 140 141 143 -- 147* POTASSIUM mmol/L 3.2* 3.7 3.9 < > 3.3* CHLORIDE mmol/L 91* 93* 97* -- 101 CO2 mmol/L 37* 34* 36* -- 34* BUN mg/dL 78* 77* 77* -- 83* CREATININE mg/dL 2.40* 2.42* 2.52* -- 2.72* CALCIUM mg/dL 8.2* 8.2* 8.4* -- 8.2* PHOSPHORUS mg/dL -- 2.8 2.9 -- 3.1 MAGNESIUM mg/dL -- 2.2 2.5 -- 1.9 < > = values in this interval not displayed. PT/INR: Results from last 7 days Lab Units 10/03/23 0529 10/02/23 0800 10/01/23 1730 PROTIME sec 20.2* 21.0* 19.4* INR 1.8* 1.8* 1.7* APTT: MAG: Results from last 7 days Lab Units 10/02/23 0800 10/01/23 0620 09/30/23 0315 MAGNESIUM mg/dL 2.2 2.5 1.9 D Dimer: Troponin I ProBNP Lipid Panel: Lab Results Component Value Date CHOL 127 (L) 09/13/2021 TRIG 159 (H) 09/13/2021 HDL 38 (L) 09/13/2021 Liver Panel: No results found for: ALB HgA1C: Lab Results Component Value Date HGBA1C 6.3 (H) 09/29/2023 ABG: Lab Results Component Value Date pH 7.431 09/27/2023 PCO2 37.8 09/27/2023 PO2 73 (L) 09/27/2023 Base,Excess 1.0 09/27/2023 Base,Deficit 3.0 (H) 09/23/2023 Portable HCO3 25.1 09/27/2023 SPO2 100 09/27/2023 LAST ECHO (Within 2 Years) Echo complete W/ contrast Result Date: 09/04/2023 Left Ventricle: There is mild concentric increased wall thickness/hypertrophy. Systolic function is mildly to moderately decreased with an ejection fraction of 40-45%. Mitral Valve: There is mild to moderate regurgitation with a centrally directed and a posteriorly directed jet. There is no evidence of mitral valve stenosis. Tricuspid Valve: There is moderate regurgitation. The tricuspid valve regurgitation jet is eccentric. There is no evidence of tricuspid valve stenosis. RADIOLOGY: No results found. PHYSICAL EXAM Admission Weight: Weight: 131.8 kg (290 lb 9.1 oz) I/O last 3 completed shifts: In: 4776.9 [I.V.:4776.9] Out: 2950 [Urine:2950] Weight change: -0.2 kg (-7.1 oz) Wt Readings from Last 3 Encounters: 10/03/23 112.6 kg (248 lb 3.8 oz) 09/19/23 132 kg (291 lb) 09/05/23 114.3 kg (252 lb) Vitals: Vitals: 10/03/23 0307 10/03/23 0410 10/03/23 0500 10/03/23 0800 BP: (!) 104/93 104/62 Pulse: 95 89 87 Resp: 16 16 Temp: 36.5 C (97.7 F) 36.5 C (97.7 F) TempSrc: Oral Oral SpO2: 93% 93% Weight: 112.6 kg (248 lb 3.8 oz) Height: Admit Weight Weight: 131.8 kg (290 lb 9.1 oz) Last 3 Weights Last 3 Weight Readings 09/30/23 0500 10/02/23 0603 10/03/23 0500 Weight: 114.8 kg (253 lb 1.4 oz) 112.8 kg (248 lb 10.9 oz) 112.6 kg (248 lb 3.8 oz) Body mass index is 41.31 kg/m . INTAKE/OUTPUT I/O last 3 completed shifts: In: 4776.9 [I.V.:4776.9] Out: 2950 [Urine:2950] Intake/Output Summary (Last 24 hours) at 10/03/2023 0814 Last data filed at 10/03/2023 0535 Gross per 24 hour Intake 4776.85 ml Output 1950 ml Net 2826.85 ml General appearance: Alert oriented and cooperative, In no acute distress Lungs: Clear to ausculation bilaterally, no use of accessory muscles Heart:: RRR with normal S1 and S2, no murmurs and no gallops. Abdomen: Soft, non-tender, bowel sounds normal. Extremities: No edema ASSESSMENT Acute on chronic HFpEF NICM with LVEF 40-45% TTE 08/2023 Persistent atrial fibrillation with RVR Hx of atrial flutter s/p RFA 2020 [id number] MR, moderate TR Moderate nonobstructive CAD - [facility] 01/2021 ITP Acute kidney injury Diabetes mellitus Anemia Bacteremia 1/2 blood cultures 09/27/2023 - likely contaminant GI bleeding Hypokalemia PLAN -patient stable at the time she was seen. Heart rate still running a little bit high. Digoxin level 0.7. -loading with IV digoxin 250 mcg x2 today. Addendum: will hold off starting PO digoxin and plan to recheck digoxin level in 5 days. -will hold off starting anticoagulation for another week, will need close monitoring of hemoglobin levels. -plan for discharge once rate better controlled. -optimize electrolytes maintain potassium at or above 4. Replace as needed. -will follow-up. RAFAELA ALLEN MD This note was completed using a voice workforce management manager system. Every effort was made to ensure accuracy. However, inadvertent computerized workforce management manager errors may be present. Urology Progress Note 12 Chief complaint: gross hematuria Subjective: Pt without complaints. Pt was noted to have some hematuria this am. Pt has external catheter in place. Cannister from urine earlier today is light rust red color. Current urine is yellow in cannister- no clot. Pt denies any abdominal pain. Weight: 112.8 kg (248 lb 10.9 oz) Patient Vitals for the past 24 hrs: BP Temp Temp src Pulse Resp SpO2 Weight 10/02/23 1526 (!) 112/98 36.6 C (97.9 F) Oral 57 16 98 % -- 10/02/23 1107 109/66 36.6 C (97.9 F) Oral 89 18 95 % -- 10/02/23 0719 91/69 36.4 C (97.5 F) Axillary 92 18 96 % -- 10/02/23 0603 -- -- -- -- -- -- 112.8 kg (248 lb 10.9 oz) 10/02/23 0515 106/86 36.9 C (98.5 F) Oral (!) 143 -- 94 % -- 10/02/23300 99/71 -- -- (!) 130 -- -- -- 10/02/2314 96 36.8 C (98.2 F) -- (!) 133 -- 95 % -- 10/01/23 2315 -- -- -- (!) 137 -- -- -- 10/01/232005 36.4 C (97.5 F) Oral (!) 130 20 97 % -- Intake/Output Summary (Last 24 hours) at 10/02/2023 1749 Last data filed at 10/02/2023 0516 Gross per 24 hour Intake -- Output 1000 ml Net -1000 ml Results from last 7 days Lab Units 10/02/23 1447 10/02/23 0806 10/02/23 0800 10/01/23 0837 10/01/23 0620 09/30/23 1530 09/30/23 1526 09/30/23 0809 09/30/23 0315 POTASSIUM mmol/L -- -- 3.7 -- 3.9 -- 4.0 -- 3.3* CHLORIDE mmol/L -- -- 93* -- 97* -- -- -- 101 CO2 mmol/L -- -- 34* -- 36* -- -- -- 34* BUN mg/dL -- -- 77* -- 77* -- -- -- 83* CREATININE mg/dL -- -- 2.42* -- 2.52* -- -- -- 2.72* BEDSIDE GLUCOSE mg/dL 207* < > -- < > -- < > -- < > -- GLUCOSE mg/dL -- -- 169* -- 142* -- -- -- 153* CALCIUM mg/dL -- -- 8.2* -- 8.4* -- -- -- 8.2* < > = values in this interval not displayed. Results from last 7 days Lab Units 10/02/23 0800 10/01/23 1730 10/01/23 0620 09/30/23 0315 WBC X10E9/L 6.9 -- 8.4 9.5 HEMOGLOBIN g/dL 8.1* -- 8.0* 7.4* HEMATOCRIT % 24.9* -- 24.0* 22.3* PLATELETS X10E9/L 132* 139* 135* 124* Physical Exam: NAD Abd- soft, nontender, urine as above Impression: 68 yo female with gross hematuria, hgb remains stable Plan: as previously mentioned, will have pt follow up outpt for cystoscopy with retrograde pyelogram to further eval hematuria - KAVYA BECERRA 10/02/23 5:56 PM KAVYA Becerra 10/02/23 0176 Images from the original note were not included. Nephrology Daily Progress Note The events of last night reviewed, chart and all new entries , new tests reviewed Impression/Plan: Acute on chronic renal failure stage 4 due to acute tubular necrosis, started on hemodial with baseline creatinine of 1.8 ysis on 09/21/2023, and 09/22/2023, renal function is stable, in negative balance Acute hypoxemic respiratory failure with pulmonary congestion and bilateral effusion, , in negative Hypotension, on midodrine Acute on chronic systolic congestive heart failure with EF of 40-45%, [id number] MR and moderate TR Anemia, on Aranesp and iron, Hematochezia, refused GI workup Thrombocytopenia, fibrin split product was elevated, fibrinogen was 324, haptoglobin was not suppressed , thrombocytopenia is improving Gross hematuria, I will consult Hematology Atrial fibrillation with rapid ventricular rate, managed by Cardiology . Interval history, patient is in AFib with rapid ventricular rate, she is so weak, she has gross hematuria Vitals: 10/02/23 0515 10/02/23 0603 10/02/23 0719 10/02/23 1107 BP: 106/86 91/69 109/66 Pulse: (!) 143 92 89 Resp: 18 18 Temp: 36.9 C (98.5 F) 36.4 C (97.5 F) 36.6 C (97.9 F) TempSrc: Oral Axillary Oral SpO2: 94% 96% 95% Weight: 112.8 kg (248 lb 10.9 oz) Height: Intake/Output: Intake/Output Summary (Last 24 hours) at 10/02/2023 1425 Last data filed at 10/02/2023 0516 Gross per 24 hour Intake -- Output 1825 ml Net -1825 ml Physical Exam: General appearance: alert in no acute distress. Head: Normocephalic, without obvious abnormality, atraumatic Eyes: Conjunctivae unremarkable, pupils reactive Neck: No JVD, no carotid bruit, neck supple, trachea midline cardiovascular: Irregular in rate and rhythm Respiratory: Decreased breathing sounds at the bases Gastrointestinal: no tenderness, no guarding, no hepatosplenomegaly could be appreciated. Muscloskeletal: + LE edema, no active arthritis, normal range of movement Neurology: Moves all extremities, alert oriented Skin: no rash, no petechia Psychiatric, no anxiety, no suicidal ideas Lymphatic: no lymphadenopathy, no lymphedema Inpatient Meds: bumetanide, 2 mg, oral, BID AC darbepoetin stefania (ARANESP) injection, 100 mcg, subcutaneous, Weekly folic acid, 1 mg, oral, Daily insulin lispro, 2-10 Units, subcutaneous, With meals and nightly [START ON 10/05/2023] metOLazone, 2.5 mg, oral, Weekly metoprolol tartrate, 50 mg, oral, BID midodrine, 10 mg, oral, Q6H pantoprazole, 40 mg, oral, QAM AC potassium chloride, 20 mEq, oral, BID sennosides-docusate sodium, 2 tablet, oral, Nightly sodium chloride, 10 mL, intravenous, Q96H sodium chloride, 10 mL, intravenous, Q96H sodium chloride, 10 mL, intravenous, Q8H AND sodium citrate, 2 mL, intravenous, Q8H AND sodium chloride, 10 mL, intravenous, PRN AND sodium chloride, 10 mL, intravenous, PRN AND sodium citrate, 2 mL, intravenous, PRN sodium chloride, 3 mL, intravenous, Q12H sodium citrate, 2 mL, intravenous, Q96H sodium citrate, 2 mL, intravenous, Q96H dextrose 2.5 % in water, 1,000 mL infusion, 100 mL/hr, Last Rate: 100 mL/hr (10/02/23 0853) dextrose 5 % in water, 100 mL/hr sodium chloride 0.9 %, 10 mL/hr, Last Rate: Stopped (12/31/23 0141) sodium chloride 0.9 %, 10 mL/hr, Last Rate: Stopped (09/25/23 0130) sodium chloride 0.9 %, 10 mL/hr, Last Rate: Stopped (09/30/23 0521) sodium chloride 0.9 %, 20 mL/hr, Last Rate: Stopped (09/28/23 1045) sodium chloride 0.9 %, 250 mL sodium chloride 0.9 %, 250 mL Nutrition: Dietary Orders (From admission, onward) Start Ordered 09/26/23 1343 Adult diet Regular Texture; Consistent Carb 210 grams (1800 kcal); Low Phosphorus (800-1000 mg); Fluid Restriction 1500 mL Diet effective now Question Answer Comment Diet Type: Regular Texture Carbohydrate Modifiers: Consistent Carb 210 grams (1800 kcal) Renal Modifiers: Low Phosphorus (800-1000 mg) Fluid Restrictions: Fluid Restriction 1500 mL 09/26/23 1342 09/24/23 1425 Adult nutrition supplements Continuous Question Answer Comment Diet Type or Consistency: Regular Texture Select Supplement: Renal Oral Supplement Supplement Frequency: BID 09/24/23 1424 Labs: Results from last 7 days Lab Units 10/02/23 0800 10/01/23 0620 09/30/23 1526 09/30/23 0315 09/29/23 0224 09/28/23 0230 SODIUM mmol/L 141 143 -- 147* 150* 148* POTASSIUM mmol/L 3.7 3.9 4.0 3.3* 3.2* 3.2* CHLORIDE mmol/L 93* 97* -- 101 105 104 CO2 mmol/L 34* 36* -- 34* 32 30 BUN mg/dL 77* 77* -- 83* 87* 86* CREATININE mg/dL 2.42* 2.52* -- 2.72* 3.03* 3.24* CALCIUM mg/dL 8.2* 8.4* -- 8.2* 8.4* 8.7 MAGNESIUM mg/dL 2.2 2.5 -- 1.9 1.8 2.0 PHOSPHORUS mg/dL 2.8 2.9 -- 3.1 3.7 5.3* Results from last 7 days Lab Units 10/02/23 0800 10/01/23 1730 10/01/23 0620 09/30/23 0315 WBC X10E9/L 6.9 -- 8.4 9.5 HEMOGLOBIN g/dL 8.1* -- 8.0* 7.4* HEMATOCRIT % 24.9* -- 24.0* 22.3* PLATELETS X10E9/L 132* 139* 135* 124* Results from last 7 days Lab Units 10/02/23 0800 10/01/23 0620 09/30/23 0315 MAGNESIUM mg/dL 2.2 2.5 1.9 Lab Results Component Value Date CALCIUM 8.2 (L) 10/02/2023 Lab Results Component Value Date IRON 271 (H) 09/24/2023 TIBC 312 09/24/2023 FERRITIN 150 09/24/2023 Problem list Acute on chronic renal failure stage 4 in August 2023 with baseline serum creatinine of 1.8 mg/dL in 2020, the serum creatinine peaked at 6.5 mg/dL and she required 2 sessions of hemodialysis, then the creatinine stabilized at 2.5 mg/dL, renal workup included renal ultrasound from 09/04/2023 showing right kidney 10.8 cm, left kidney 10.9 cm, no hydronephrosis noted. The urinalysis revealed more than 720 RBC and 185 WBC per high-power field, urine protein creatinine ratio was 16.8, FENA was more than 2%, TERRANCE, anti-GBM and vasculitis profile were negative, serum complements were within normal, serum protein electrophoresis unremarkable Shock in August 2023 Acute respiratory failure with bilateral pulmonary infiltrate ventilator in August 2023 Atrial fibrillation with history of ablation on chronic anticoagulation Diabetes mellitus type 2 Coronary artery disease, cardiac catheterization in 1999 revealed proximal LAD to mid LAD had 50% stenosis, the left circumflex had 50% proximal to mid lesion, the right coronary artery had 65% ostial to mid lesion Obesity Chronic systolic congestive heart failure Injury to the back Tonsillectomy Myringotomy tube LILIA COX MD [facility] ANY QUESTIONS FEEL FREE TO CALL: 1. OFFICE [phone] 2. ANSWERING SERVICE:[phone] This note was created with the assistance of a speech-recognition program. Although the intention is to generate a document that actually reflects the content of the visit, no guarantees can be provided that every mistake has been identified and corrected by editing. Images from the original note were not included. [facility] Progress Note 10/02/2023 Patient Name: Harris Castrejon : 1955 Hospital Day: 13 SUBJECTIVE Follow-up for weakness The patient seen and examined. No acute events over night. No chest pain. Past Medical History: Diagnosis Date Arrhythmia Hypertension Injury of back Disc L4 and L5 Obesity Systolic and diastolic CHF, acute ([facility]) 09/03/2023 Visual impairment Past Surgical History: Procedure Laterality Date Cardiac catheterization 02/16/2021 Performed by Kelli Su MD at [facility] CARDIAC CATH LABS Caval Tricuspid Isthmus RFA, Carto w/ICE N/A 03/21/2021 Performed by Lurdes Weinberg MD at [facility] HRC (EP) Coronary angiogram and left ventricular gram/pressure N/A 02/16/2021 Performed by Kelli Su MD at [facility] CARDIAC CATH LABS Coronary fractional flow reserve N/A 02/16/2021 Performed by Kelli Su MD at [facility] CARDIAC CATH LABS Intravascular pressure measurement first vessel each additional vessel (fractional flow reserve) N/A 02/16/2021 Performed by Kelli uS MD at [facility] CARDIAC CATH LABS MYRINGOTOMY W/ TUBES TONSILLECTOMY OBJECTIVE Vital Signs: Temp: [36.4 C (97.5 F)-36.9 C (98.5 F)] 36.6 C (97.9 F) Pulse: [89-143] 89 Resp: [18-20] 18 BP: (91-109)/(63-86) 109/66 SpO2: [94 %-97 %] 95 % O2 Device: Nasal cannula O2 Flow Rate (L/min): [1 L/min-3 L/min] 1 L/min Weight: Body mass index is 41.38 kg/m . Admission weight: 131.8 kg (290 lb 9.1 oz) Wt Readings from Last 3 Encounters: 10/02/23 112.8 kg (248 lb 10.9 oz) 09/19/23 132 kg (291 lb) 09/05/23 114.3 kg (252 lb) Input/Output: Intake/Output Summary (Last 24 hours) at 10/02/2023 1425 Last data filed at 10/02/2023 0516 Gross per 24 hour Intake -- Output 1825 ml Net -1825 ml Physical Exam: General appearance: Alert, cooperative, no distress. Eyes: PERRLA, EOM's intact Conjunctiva/corneas moist and clear, mild pallor ENT: Oropharynx clear with moist mucous membranes and no mucosal ulcerations. No thrush. External ears and nose are normal without lesions or scars. Respiratory: Normal work of breathing. No use of accessory muscles. No wheezing, rhonchi or crackles. Cardiovascular: Irregularly irregular S1, S2 normal, no murmur, rub or gallop. 2+ LE edema. Abdomen: Soft, non-tender, no masses. No hernia. No hepatosplenomegaly. Skin: No rashes, lesions or ulcers. No induration or subcutaneous nodules. Labs/Imaging: Recent Results (from the past 24 hour(s)) Bedside Glucose *Place/Obtain serum glucose if >500(>600 MRH) per glucometer. Collection Time: 10/01/23 4:47 PM Result Value Ref Range Bedside glucose 183 (H) 65 - 99 mg/dL Platelet count Collection Time: 10/01/23 5:30 PM Result Value Ref Range Platelets 139 (L) 150 - 450 X10E9/L MPV 9.8 7 - 12 fL APTT Collection Time: 10/01/23 5:30 PM Result Value Ref Range aPTT 28 26 - 37 sec Protime & INR Collection Time: 10/01/23 5:30 PM Result Value Ref Range Protime 19.4 (H) 9.8 - 13.2 sec Inr 1.7 (H) 0.8 - 1.1 Bedside Glucose *Place/Obtain serum glucose if >500(>600 MRH) per glucometer. Collection Time: 10/01/23 9:14 PM Result Value Ref Range Bedside glucose 191 (H) 65 - 99 mg/dL Anti XA unfractionated heparin Collection Time: 10/02/23 12:30 AM Result Value Ref Range Heparin anti-xa, unfractionated 0.31 0.30 - 0.70 IU/mL Protime & INR Collection Time: 10/02/23 8:00 AM Result Value Ref Range Protime 21.0 (H) 9.8 - 13.2 sec Inr 1.8 (H) 0.8 - 1.1 CBC auto differential Collection Time: 10/02/23 8:00 AM Result Value Ref Range White Blood Cells 6.9 4.0 - 11.0 X10E9/L RBC count 2.60 (L) 3.80 - 5.20 X10E12/L Hemoglobin 8.1 (L) 11.7 - 15.5 g/dL Hematocrit 24.9 (L) 35 - 47 % MCV 96 80 - 100 fL MCH 31.2 27 - 34 pg MCHC 32.7 32 - 36 g/dL RDW 20.4 (H) 11.5 - 15.0 % Platelets 132 (L) 150 - 450 X10E9/L MPV 9.8 7 - 12 fL % neutrophils 77.8 % % lymphocytes 11.0 % % monocytes 8.5 % % eosinophils 1.9 % % Basophils 0.8 % Neutrophils Absolute (A) 5.4 1.5 - 6.6 X10E9/L Lymphocytes Absolute 0.8 (L) 1.0 - 3.5 X10E9/L Monocytes Absolute 0.6 0 - 0.9 X10E9/L Eosinophils Absolute 0.1 0.0 - 0.4 X10E9/L Basophils Absolute 0.1 0.0 - 0.2 X10E9/L Comprehensive metabolic panel Collection Time: 10/02/23 8:00 AM Result Value Ref Range Sodium 141 134 - 146 mmol/L Potassium, Bld 3.7 3.5 - 5.0 mmol/L Chloride 93 (L) 98 - 109 mmol/L CO2 34 (H) 22 - 32 mmol/L Anion gap 14 5 - 15 mmol/L BUN 77 (H) 5 - 27 mg/dL Creatinine 2.42 (H) 0.40 - 1.00 mg/dL Glucose 169 (H) 65 - 99 mg/dL Calcium 8.2 (L) 8.5 - 10.5 mg/dL Total Protein 6.4 6.0 - 8.0 g/dL Albumin 3.5 3.2 - 5.3 g/dL Alkaline Phosphatase 80 39 - 130 U/L AST 16 0 - 41 U/L ALT 9 0 - 31 U/L Total bilirubin 1.2 0.3 - 1.2 mg/dL eGFR (CKD-EPI)non-race dependent 22 (L) >59 ml/min/1.73sq.m Magnesium Collection Time: 10/02/23 8:00 AM Result Value Ref Range Magnesium 2.2 1.8 - 2.6 mg/dL Phosphorus Collection Time: 10/02/23 8:00 AM Result Value Ref Range Phosphorus 2.8 2.4 - 4.9 mg/dL Anti XA unfractionated heparin Collection Time: 10/02/23 8:00 AM Result Value Ref Range Heparin anti-xa, unfractionated 0.36 0.30 - 0.70 IU/mL Digoxin level Collection Time: 10/02/23 8:00 AM Result Value Ref Range Digoxin Lvl 0.7 (L) 0.8 - 2.0 ng/mL Bedside Glucose *Place/Obtain serum glucose if >500(>600 MRH) per glucometer. Collection Time: 10/02/23 8:06 AM Result Value Ref Range Bedside glucose 177 (H) 65 - 99 mg/dL Microbiology Results Procedure Component Value Units Date/Time Blood culture #2 [[id number]] (Abnormal) Collected: 09/27/23 0538 Specimen: Blood Updated: 09/29/23 1037 Culture STAPHYLOCOCCUS, COAGULASE NEGATIVE NOT S.LUGDUNENSIS POSSIBLE COLLECTION CONTAMINATION. SINGLE POSITIVE CULTURE IS OF UNCERTAIN CLINICAL SIGNIFICANCE. SUGGEST CONTINUED MONITORING OF REMAINING BLOOD CULTURES. CONTACT MICROBIOLOGY IF FURTHER INFORMATION IS REQUIRED. Staphylococcus species detected by PCR (not S. aureus, S.epidermidis, or S.lugdunensis). Blood culture #1 [[id number]] Collected: 09/27/23 0431 Specimen: Blood Updated: 10/02/23 0546 Specimen Notes ONLY AEROBIC BOTTLE RECEIVED, SUBOPTIMAL VOLUME OF BLOOD COLLECTED, RESULTS MAY BE AFFECTED Culture NO GROWTH 5 DAYS Urine culture [[id number]] Collected: 09/27/23 0405 Specimen: Urine Updated: 09/28/23 0701 Specimen Notes URINE RECEIVED WITHOUT PRESERVATIVE Culture NO GROWTH AT <1000 CFU/mL No results found. All available laboratory, imaging, and microbiology data has been personally reviewed in detail, and accessible in full per EMR. Medications: bumetanide, 2 mg, oral, BID AC darbepoetin stefania (ARANESP) injection, 100 mcg, subcutaneous, Weekly folic acid, 1 mg, oral, Daily insulin lispro, 2-10 Units, subcutaneous, With meals and nightly [START ON 10/05/2023] metOLazone, 2.5 mg, oral, Weekly metoprolol tartrate, 50 mg, oral, BID midodrine, 10 mg, oral, Q6H pantoprazole, 40 mg, oral, QAM AC potassium chloride, 20 mEq, oral, BID sennosides-docusate sodium, 2 tablet, oral, Nightly sodium chloride, 10 mL, intravenous, Q96H sodium chloride, 10 mL, intravenous, Q96H sodium chloride, 10 mL, intravenous, Q8H AND sodium citrate, 2 mL, intravenous, Q8H AND sodium chloride, 10 mL, intravenous, PRN AND sodium chloride, 10 mL, intravenous, PRN AND sodium citrate, 2 mL, intravenous, PRN sodium chloride, 3 mL, intravenous, Q12H sodium citrate, 2 mL, intravenous, Q96H sodium citrate, 2 mL, intravenous, Q96H Infusion: dextrose 2.5 % in water, 1,000 mL infusion, 100 mL/hr, Last Rate: 100 mL/hr (10/02/23 0853) dextrose 5 % in water, 100 mL/hr sodium chloride 0.9 %, 10 mL/hr, Last Rate: Stopped (09/29/23 0141) sodium chloride 0.9 %, 10 mL/hr, Last Rate: Stopped (09/25/23 0130) sodium chloride 0.9 %, 10 mL/hr, Last Rate: Stopped (09/30/23 0521) sodium chloride 0.9 %, 20 mL/hr, Last Rate: Stopped (09/28/23 1045) sodium chloride 0.9 %, 250 mL sodium chloride 0.9 %, 250 mL PRN medications: calcium gluconate OR calcium gluconate OR calcium gluconate dextrose dextrose 5 % in water [COMPLETED] insulin regular AND dextrose 50 % in water (D50W) AND dextrose 50 % in water (D50W) dextrose 50 % in water (D50W) glucagon (human recombinant) magnesium sulfate OR magnesium sulfate metoprolol (LOPRESSOR) IV midodrine potassium chloride OR potassium chloride potassium chloride in water OR potassium chloride in water sodium phosphate IV OR sodium phosphate IV - central line OR sod phos di, mono-K phos mono sodium chloride sodium chloride sodium chloride sodium chloride sodium chloride AND sodium citrate AND sodium chloride AND sodium chloride AND sodium citrate sodium chloride 0.9 % sodium chloride 0.9 % sodium chloride 0.9 % sodium chloride 0.9 % sodium citrate sodium citrate ASSESSMENT and plan: Active Hospital Problems Diagnosis Date Noted Acute kidney injury ([facility]) 09/20/2023 Resolved Problems No resolved problems to display. Distributive shock Etiology not clear Required ICU stay and vasopressor support Currently on midodrine 15 mg q.6, wean down to 10 mg q.6 and monitor Hematochezia One episode of hematochezia 09/24. Nursing staff reported 3 dark bowel movements overnight after initiation of heparin drip Hemoglobin remains stable Stop heparin drip Patient refused EGD/colonoscopy and GI signed off Continue Protonix Monitor Supratherapeutic INR on presentation s/p vitamin K reversal Acute on chronic thrombocytopenia Improving Etiology multifactor: Bone marrow suppression in the setting of acute infection and blood loss, possible underlying chronic ITP Monitor CBC, transfuse platelets if balance below 20,000 Atrial fibrillation with RVR Continue metoprolol 50 mg b.i.d., plan to start digoxin Discussed with cardiology, unfortunately this is a tricky situation, but at this time I believe risk of bleeding with AC outweigh benefits. Plan to hold anticoagulation for 2 weeks after discharge, Patient will need to follow up with cardiology for watchman eval. 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 Bumex 2mg BID and metolazone 2.5 mg weekly Strict I&O Salt and fluid restriction Optimization of goal-directed medical therapy outpatient with improvement of blood pressure Hyponatremia Resolved Type 2 diabetes mellitus Continue sliding scale Debility PT/OT DVT prophylaxis: Heparin drip Code Status: Full code Disposition: Better HR control. Plan to discharge home with home health. Current care plan discussed in detail with the patient and family at bedside. They verbalized understanding. Further management will follow based on the clinical course of the patient and results of ongoing evaluation Electronically signed by: ELVI SCHREIBER MD 10/02/2023 Disclaimer Note: To increase efficiency, your provider may have prepared this document using voice recognition technology. In that case, if a word or phrase is confusing, or does not make sense, this is likely due to a recognition error within the program which was not discovered during the provider s review. If you believe an error has occurred, please notify your provider s office at your earliest convenience, so we can correct any mistakes. Images from the original note were not included. [facility] [address] [place] [address] PROGRESS NOTE Harris Castrejon denies any chest pain or shortness of breath. States that she does not want to get scoped and would rather go home on a blood thinner and risk bleeding then have a scope done to evaluate for cause of bleeding. She is no acute complaints. SUBJECTIVE Allergies: No Known Allergies CURRENT MEDICATIONS bumetanide, 2 mg, oral, BID AC darbepoetin stefania (ARANESP) injection, 100 mcg, subcutaneous, Weekly folic acid, 1 mg, oral, Daily insulin lispro, 2-10 Units, subcutaneous, With meals and nightly [START ON 10/05/2023] metOLazone, 2.5 mg, oral, Weekly metoprolol tartrate, 50 mg, oral, BID midodrine, 10 mg, oral, Q6H pantoprazole, 40 mg, oral, QAM AC potassium chloride, 20 mEq, oral, BID sennosides-docusate sodium, 2 tablet, oral, Nightly sodium chloride, 10 mL, intravenous, Q96H sodium chloride, 10 mL, intravenous, Q96H sodium chloride, 10 mL, intravenous, Q8H AND sodium citrate, 2 mL, intravenous, Q8H AND sodium chloride, 10 mL, intravenous, PRN AND sodium chloride, 10 mL, intravenous, PRN AND sodium citrate, 2 mL, intravenous, PRN sodium chloride, 3 mL, intravenous, Q12H sodium citrate, 2 mL, intravenous, Q96H sodium citrate, 2 mL, intravenous, Q96H CONTINUOUS INFUSIONS dextrose 2.5 % in water, 1,000 mL infusion, 100 mL/hr, Last Rate: 100 mL/hr (10/01/23 204) dextrose 5 % in water, 100 mL/hr heparin, 300-3,500 Units/hr, Last Rate: 1,000 Units/hr (10/02/23 0200) sodium chloride 0.9 %, 10 mL/hr, Last Rate: Stopped (09/29/23 0141) sodium chloride 0.9 %, 10 mL/hr, Last Rate: Stopped (09/25/23 0130) sodium chloride 0.9 %, 10 mL/hr, Last Rate: Stopped (09/30/23 0521) sodium chloride 0.9 %, 20 mL/hr, Last Rate: Stopped (09/28/23 1045) sodium chloride 0.9 %, 250 mL sodium chloride 0.9 %, 250 mL Review of Systems: Cardiovascular: No chest pain, dyspnea on exertion, palpitations or loss of consciousness. No cough, hemoptysis, pleuritic pain, or phlebitis. Respiratory: No cough or wheezing, no sputum production, no hematemesis. Neurological: No headache, diplopia, change in muscle strength, numbness or tingling. No change in gait, balance, coordination, mood, affect, memory, mentation, behavior. Hematologic/Lymphatic: No abnormal bruising or bleeding, blood clots or swollen lymph nodes. OBJECTIVE CBC: Results from last 7 days Lab Units 10/01/23 1730 10/01/23 0620 09/30/23 0315 09/29/23 0224 WBC X10E9/L -- 8.4 9.5 9.4 HEMOGLOBIN g/dL -- 8.0* 7.4* 7.8* HEMATOCRIT % -- 24.0* 22.3* 24.2* MCV fL -- 95 95 96 PLATELETS X10E9/L 139* 135* 124* 100* BMP: Results from last 7 days Lab Units 10/01/23 0620 09/30/23 1526 09/30/2331409/29/23223 SODIUM mmol/L 143 -- 147* 150* POTASSIUM mmol/L 3.9 4.0 3.3* 3.2* CHLORIDE mmol/L 97* -- 101 105 CO2 mmol/L 36* -- 34* 32 BUN mg/dL 77* -- 83* 87* CREATININE mg/dL 2.52* -- 2.72* 3.03* CALCIUM mg/dL 8.4* -- 8.2* 8.4* PHOSPHORUS mg/dL 2.9 -- 3.1 3.7 MAGNESIUM mg/dL 2.5 -- 1.9 1.8 PT/INR: Results from last 7 days Lab Units 10/01/23 1730 10/01/2361909/30/23314 PROTIME sec 19.4* 18.3* 21.8* INR 1.7* 1.6* 1.9* APTT: MAG: Results from last 7 days Lab Units 10/01/23 0609/30/2331409/29/23223 MAGNESIUM mg/dL 2.5 1.9 1.8 D Dimer: Troponin I ProBNP Lipid Panel: Lab Results Component Value Date CHOL 127 (L) 09/13/2021 TRIG 159 (H) 09/13/2021 HDL 38 (L) 09/13/2021 Liver Panel: No results found for: ALB HgA1C: Lab Results Component Value Date HGBA1C 6.3 (H) 09/29/2023 ABG: Lab Results Component Value Date pH 7.431 09/27/2023 PCO2 37.8 09/27/2023 PO2 73 (L) 09/27/2023 Base,Excess 1.0 09/27/2023 Base,Deficit 3.0 (H) 09/23/2023 Portable HCO3 25.1 09/27/2023 SPO2 100 09/27/2023 CV TESTING HISTORY: ECHO: Echo complete W/ contrast Result Date: 09/04/2023 Left Ventricle: There is mild concentric increased wall thickness/hypertrophy. Systolic function is mildly to moderately decreased with an ejection fraction of 40-45%. Mitral Valve: There is mild to moderate regurgitation with a centrally directed and a posteriorly directed jet. There is no evidence of mitral valve stenosis. Tricuspid Valve: There is moderate regurgitation. The tricuspid valve regurgitation jet is eccentric. There is no evidence of tricuspid valve stenosis. STRESS: No results found. HOLTER: No results found. CARDIAC CATH: No results found. CAROTID: No results found. CXR: X-ray chest 1 view Result Date: 09/30/2023 XR CHEST 1 VW HISTORY: CHF and pulmonary congestion. Follow-up exam COMPARISON: Prior study from the day before. FINDINGS: AP portable upright view of the chest The trachea is midline. Cardiomediastinal contour is mildly enlarged with bilateral hilar congestion. Left retrocardiac consolidation. No pleural effusion or pneumothorax. No change in right IJ central line with the tip in the SVC. IMPRESSION: * Low lung volumes and decompensated CHF similar to prior study. Finalized by Vida Jiménez MD on 09/30/2023 8:05 AM X-ray chest 1 view Result Date: 09/29/2023 Clinical History: Congestion. Portable Upright chest: 09/29/2023 Comparison: 09/28/2023 Findings: A single portable view of the chest was obtained. Right IJ catheter remains in the mid SVC region. There is cardiac prominence with vascular distention centrally and indistinct vascular margins. Confluent basilar opacities persist with no definite change. There is no pneumothorax. Pleural effusions are likely bilaterally IMPRESSION: Persistent vascular congestion with grossly stable basilar infiltrates and probable pleural effusions. Finalized by Jamaal Cormeir MD on 09/29/2023 8:09 AM X-ray chest 1 view Result Date: 09/28/2023 Clinical History: Congestion. Edema. Portable Upright chest: 09/28/2023 Comparison: 09/27/2023 Findings: A single portable view of the chest was obtained. Right IJ catheter is in mid trachea. Cardiac silhouette is prominent with stable mediastinal contours. This vascular distention and indistinct appearance centrally with persistent perihilar and basilar infiltrates. No pneumothorax or large pleural effusion is present. IMPRESSION: Vascular congestion with persistent basilar infiltrates and pleural effusions. Finalized by Jamaal Cormier MD on 09/28/2023 7:29 AM X-ray chest 1 view Result Date: 09/27/2023 Single view chest History:sob Difficulty breathing, shortness of breath Comparison: 09/22/2023 Findings: Single portable view of the chest. Stable cardia mediastinal silhouette. Right jugular catheter stable. Mild vascular congestion and edema and small pleural effusions, stable. Impression: No significant interval change. Finalized by Krystal Anderson MD on 09/27/2023 10:45 AM X-ray chest 1 view Result Date: 09/22/2023 Procedure: Chest x-ray performed Number of views:1 History:Shortness of breath Comparison:09/21/2023 Impression: 1. Tubes and lines are stable. Congestion and effusions are present. These are slightly increased. The cardiac silhouette remains enlarged. There is no pneumothorax. Finalized by Jose Tinoco MD on 09/22/2023 1:32 PM X-ray chest 1 view Result Date: 09/21/2023 HISTORY AND/OR TECH NOTES line placement PROCEDURE AP chest at 10:32 AM COMPARISON September 20 FINDINGS Right central line placement to the mid SVC No visible pneumothorax There is cardiomediastinal prominence with increased perihilar congestion and granular opacity There is increase in confluent opacity in left greater than right lung base Probable small effusions IMPRESSION: Right central line placement mid SVC without visible pneumothorax Worsening congestive change and probable edema and atelectasis left worse than right with trace effusions Suggest follow-up imaging to document clearing and normalization when appropriate ----- Finalized by Charlie Mendoza MD on 09/21/2023 10:45 AM X-ray chest 1 view Result Date: 09/20/2023 Single view chest XR CHEST 1 VW History: weakness Comparison: September 03 Impression: * No consolidation or pleural fluid. No acute findings. Moderate cardiomegaly Finalized by Watson Ceja MD on 09/20/2023 1:42 AM X-ray chest 1 view Result Date: 09/03/2023 XR CHEST 1 VW CLINICAL INFORMATION: Shortness of breath, evaluate for fluid overload. COMPARISON: 02/08/21. IMPRESSION: * Mild vascular congestion with midlung and basilar atelectatic changes. Trace effusions. Mild cardiomegaly. Finalized by Tian Jones MD on 09/03/2023 2:25 PM TELEMETRY: Atrial fibrillation with RVR PHYSICAL EXAM Admission Weight: Weight: 131.8 kg (290 lb 9.1 oz) I/O last 3 completed shifts: In: - Out: 4725 [Urine:4725] Weight change: Wt Readings from Last 3 Encounters: 10/02/23 112.8 kg (248 lb 10.9 oz) 09/19/23 132 kg (291 lb) 09/05/23 114.3 kg (252 lb) Vitals: Vitals: 10/02/23 0301 10/02/23 0515 10/02/23 0603 10/02/23 0719 BP: 99/71 106/86 91/69 Pulse: (!) 130 (!) 143 92 Resp: 18 Temp: 36.9 C (98.5 F) 36.4 C (97.5 F) TempSrc: Oral Axillary SpO2: 94% 96% Weight: 112.8 kg (248 lb 10.9 oz) Height: Admit Weight Weight: 131.8 kg (290 lb 9.1 oz) Last 3 Weights Last 3 Weight Readings 09/29/23 0400 09/30/23 0500 10/02/23 0603 Weight: 120.4 kg (265 lb 6.9 oz) 114.8 kg (253 lb 1.4 oz) 112.8 kg (248 lb 10.9 oz) Body mass index is 41.38 kg/m . INTAKE/OUTPUT I/O last 3 completed shifts: In: - Out: 4725 [Urine:4725] Intake/Output Summary (Last 24 hours) at 10/02/2023 0837 Last data filed at 10/02/2023 0516 Gross per 24 hour Intake -- Output 3025 ml Net -3025 ml General appearance: Alert oriented and cooperative, In no acute distress Lungs: Clear to ausculation bilaterally, no use of accessory muscles Heart:: Irregularly irregular with normal S1 and S2, no murmurs and no gallops. Extremities: ++ bilateral lower extremity edema ASSESSMENT Persistent atrial fibrillation with RVR, anticoagulation currently on hold given acute anemia/thrombocytopenia, was on Coumadin at home History of atrial flutter status post RFA 03/20/2021 Acute on Chronic systolic heart failure with EF of 40-45% per TTE 09/04/2023 Nonobstructive CAD per [facility] in 2020 with negative IFR but did have moderate disease that was not explainable for LV dysfunction at the time Supratherapeutic INR of 16 earlier this admission BRANDEE on CKD initiated on hemodialysis 09/21/2023 which was held 09/25/2023 given good response to diuresis Anemia of chronic disease, hemoglobin 8.1 Thrombocytopenia, concern for 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 Awaiting updated kidney function for this morning. Patient had hematochezia this admission in the setting of acute thrombocytopenia with significant supratherapeutic INRs 16 earlier this admission. GI is following with plans for outpatient EGD/colonoscopy but per GI note the patient does not want this completed. Patient was started back on heparin drip per primary yesterday but reportedly has continued to have dark stools since yesterday. Discussed with attending and will hold AC. Patient's rates are suboptimally controlled with heart rates in the 130s on metoprolol 50 mg twice daily. Patient requiring midodrine for blood pressure support. Could consider digoxin for additional rate control but unlikely to be long-term strategy given patient's kidney function. Will get digoxin level. Difficult situation as patient does have elevated CHADS2 Vasc score of at least 4 with elevated risk of stroke not on anticoagulation but without being able to evaluate for source of bleeding would also be high-risk to send patient home on anticoagulation. Possible plan for outpatient watchman but patient needs to determine goals of care. AMRITA LIRA PA-C This note was completed using a voice workforce management manager system. Every effort was made to ensure accuracy. However, inadvertent computerized workforce management manager errors may be present. Amrita Lira PA-C 10/02/23 0951 Images from the original note were not included. Nephrology Daily Progress Note The events of last night reviewed, chart and all new entries , new tests reviewed Impression/Plan: Acute on chronic renal failure stage 4 due to acute tubular necrosis, started on hemodial with baseline creatinine of 1.8 ysis on 09/21/2023, and 09/22/2023, renal function is improving, in negative balance Acute hypoxemic respiratory failure with pulmonary congestion and bilateral effusion, , in negative Hypotension, on midodrine Acute on chronic systolic congestive heart failure with EF of 40-45%, [id number] MR and moderate TR Anemia, on Aranesp and iron, seen by GI were planning EGD and colonoscopy next week Thrombocytopenia, fibrin split product was elevated, fibrinogen was 324, haptoglobin was not suppressed , thrombocytopenia is improving Hyperphosphatemia, resolved, I will discontinue Renvela Plan Patient wants to be discharged today I will switch diuretics to oral, she can follow-up in our office in 2 weeks with BMP, CBC magnesium and phosphate I will change Bumex to 2 mg b.i.d. Metolazone 2.5 mg weekly to be started tomorrow Potassium chloride 20 mEq b.i.d. Interval history, received hemodialysis on Saturday, responding to diuretics, off pressors, Vitals: 09/30/23 2300 10/01/23 0339 10/01/23 0800 10/01/23 1055 BP: 104/73 102/65 97/65 96/75 Pulse: (!) 133 90 107 100 Resp: (!) 30 20 20 Temp: 36.8 C (98.2 F) 36.8 C (98.2 F) 36.8 C (98.2 F) TempSrc: Oral Oral Oral SpO2: 97% 95% 100% 100% Weight: Height: Intake/Output: Intake/Output Summary (Last 24 hours) at 10/01/2023 1421 Last data filed at 10/01/2023 1056 Gross per 24 hour Intake 848.07 ml Output 4900 ml Net -4051.93 ml Physical Exam: General appearance: alert in no acute distress. Head: Normocephalic, without obvious abnormality, atraumatic Eyes: Conjunctivae unremarkable, pupils reactive Neck: No JVD, no carotid bruit, neck supple, trachea midline cardiovascular: Irregular in rate and rhythm Respiratory: Decreased breathing sounds at the bases Gastrointestinal: no tenderness, no guarding, no hepatosplenomegaly could be appreciated. Muscloskeletal: + LE edema, no active arthritis, normal range of movement Neurology: Moves all extremities, alert oriented Skin: no rash, no petechia Psychiatric, no anxiety, no suicidal ideas Lymphatic: no lymphadenopathy, no lymphedema Inpatient Meds: bumetanide, 2 mg, intravenous, BID AC darbepoetin stefania (ARANESP) injection, 100 mcg, subcutaneous, Weekly folic acid, 1 mg, oral, Daily insulin lispro, 2-10 Units, subcutaneous, With meals and nightly metOLazone, 10 mg, oral, Daily metoprolol tartrate, 50 mg, oral, BID midodrine, 15 mg, oral, Q6H pantoprazole, 40 mg, oral, QAM AC potassium chloride, 30 mEq, oral, Q6H sennosides-docusate sodium, 2 tablet, oral, Nightly sevelamer, 800 mg, oral, TID with meals sodium chloride, 10 mL, intravenous, Q96H sodium chloride, 10 mL, intravenous, Q96H sodium chloride, 10 mL, intravenous, Q8H AND sodium citrate, 2 mL, intravenous, Q8H AND sodium chloride, 10 mL, intravenous, PRN AND sodium chloride, 10 mL, intravenous, PRN AND sodium citrate, 2 mL, intravenous, PRN sodium chloride, 3 mL, intravenous, Q12H sodium citrate, 2 mL, intravenous, Q96H sodium citrate, 2 mL, intravenous, Q96H dextrose 2.5 % in water, 1,000 mL infusion, 100 mL/hr, Last Rate: 100 mL/hr (10/01/23 0904) dextrose 5 % in water, 100 mL/hr sodium chloride 0.9 %, 10 mL/hr, Last Rate: Stopped (09/29/23 0141) sodium chloride 0.9 %, 10 mL/hr, Last Rate: Stopped (09/25/23 0130) sodium chloride 0.9 %, 10 mL/hr, Last Rate: Stopped (09/30/23 0521) sodium chloride 0.9 %, 20 mL/hr, Last Rate: Stopped (09/28/23 1045) sodium chloride 0.9 %, 250 mL sodium chloride 0.9 %, 250 mL Nutrition: Dietary Orders (From admission, onward) Start Ordered 09/26/23 1343 Adult diet Regular Texture; Consistent Carb 210 grams (1800 kcal); Low Phosphorus (800-1000 mg); Fluid Restriction 1500 mL Diet effective now Question Answer Comment Diet Type: Regular Texture Carbohydrate Modifiers: Consistent Carb 210 grams (1800 kcal) Renal Modifiers: Low Phosphorus (800-1000 mg) Fluid Restrictions: Fluid Restriction 1500 mL 09/26/23 1342 09/24/23 1425 Adult nutrition supplements Continuous Question Answer Comment Diet Type or Consistency: Regular Texture Select Supplement: Renal Oral Supplement Supplement Frequency: BID 09/24/23 1424 Labs: Results from last 7 days Lab Units 10/01/23 0620 09/30/23 1526 09/30/2331409/29/23 0224 09/28/23 0230 09/27/23 031 SODIUM mmol/L 143 -- 147* 150* 148* 146 POTASSIUM mmol/L 3.9 4.0 3.3* 3.2* 3.2* 3.7 CHLORIDE mmol/L 97* -- 101 105 104 104 CO2 mmol/L 36* -- 34* 32 30 27 BUN mg/dL 77* -- 83* 87* 86* 85* CREATININE mg/dL 2.52* -- 2.72* 3.03* 3.24* 3.54* CALCIUM mg/dL 8.4* -- 8.2* 8.4* 8.7 8.6 MAGNESIUM mg/dL 2.5 -- 1.9 1.8 2.0 2.1 PHOSPHORUS mg/dL 2.9 -- 3.1 3.7 5.3* 4.6 Results from last 7 days Lab Units 10/01/23 0620 09/30/2331409/29/23223 WBC X10E9/L 8.4 9.5 9.4 HEMOGLOBIN g/dL 8.0* 7.4* 7.8* HEMATOCRIT % 24.0* 22.3* 24.2* PLATELETS X10E9/L 135* 124* 100* Results from last 7 days Lab Units 10/01/23 0620 09/30/2331409/29/23223 MAGNESIUM mg/dL 2.5 1.9 1.8 Lab Results Component Value Date CALCIUM 8.4 (L) 10/01/2023 Lab Results Component Value Date IRON 271 (H) 09/24/2023 TIBC 312 09/24/2023 FERRITIN 150 09/24/2023 Problem list Acute on chronic renal failure stage 4 in August 2023 with baseline serum creatinine of 1.8 mg/dL in 2020, the serum creatinine peaked at 6.5 mg/dL and she required 2 sessions of hemodialysis, then the creatinine stabilized at 2.5 mg/dL, renal workup included renal ultrasound from 09/04/2023 showing right kidney 10.8 cm, left kidney 10.9 cm, no hydronephrosis noted. The urinalysis revealed more than 720 RBC and 185 WBC per high-power field, urine protein creatinine ratio was 16.8, FENA was more than 2%, TERRANCE, anti-GBM and vasculitis profile were negative, serum complements were within normal, serum protein electrophoresis unremarkable Shock in August 2023 Acute respiratory failure with bilateral pulmonary infiltrate ventilator in August 2023 Atrial fibrillation with history of ablation on chronic anticoagulation Diabetes mellitus type 2 Coronary artery disease, cardiac catheterization in 1999 21 revealed proximal LAD to mid LAD had 50% stenosis, the left circumflex had 50% proximal to mid lesion, the right coronary artery had 65% ostial to mid lesion Obesity Chronic systolic congestive heart failure Injury to the back Tonsillectomy Myringotomy tube LILIA COX MD [facility] ANY QUESTIONS FEEL FREE TO CALL: 1. OFFICE [phone] 2. ANSWERING SERVICE:[phone] This note was created with the assistance of a speech-recognition program. Although the intention is to generate a document that actually reflects the content of the visit, no guarantees can be provided that every mistake has been identified and corrected by editing. Images from the original note were not included. [facility] Hospital[facility] Progress Note 10/01/2023 Patient Name: Harris Castrejon : 1955 Hospital Day: 12 SUBJECTIVE Follow-up for weakness The patient seen and examined. No acute events over night. Patient and family were very adamant on going home today, had lengthy discussion with them on multiple pending issues including PT/OT evaluation, anticoagulation plan, diuretic therapy and so on Past Medical History: Diagnosis Date Arrhythmia Hypertension Injury of back Disc L4 and L5 Obesity Systolic and diastolic CHF, acute ([facility]) 09/03/2023 Visual impairment Past Surgical History: Procedure Laterality Date Cardiac catheterization 02/16/2021 Performed by Kelli Su MD at [facility] CARDIAC CATH LABS Caval Tricuspid Isthmus RFA, Carto w/ICE N/A 03/21/2021 Performed by Lurdes Weinberg MD at [facility] HR (EP) Coronary angiogram and left ventricular gram/pressure N/A 02/16/2021 Performed by Kelli Su MD at [facility] CARDIAC CATH LABS Coronary fractional flow reserve N/A 02/16/2021 Performed by Kelli Su MD at [facility] CARDIAC CATH LABS Intravascular pressure measurement first vessel each additional vessel (fractional flow reserve) N/A 02/16/2021 Performed by Kelli Su MD at [facility] CARDIAC CATH LABS MYRINGOTOMY W/ TUBES TONSILLECTOMY OBJECTIVE Vital Signs: Temp: [36.7 C (98 F)-36.8 C (98.2 F)] 36.8 C (98.2 F) Pulse: [90-166] 100 Resp: [20-30] 20 BP: (93-104)/(65-77) 96/75 SpO2: [94 %-100 %] 100 % O2 Device: Nasal cannula O2 Flow Rate (L/min): [3 L/min] 3 L/min Weight: Body mass index is 42.12 kg/m . Admission weight: 131.8 kg (290 lb 9.1 oz) Wt Readings from Last 3 Encounters: 09/30/23 114.8 kg (253 lb 1.4 oz) 09/19/23 132 kg (291 lb) 09/05/23 114.3 kg (252 lb) Input/Output: Intake/Output Summary (Last 24 hours) at 10/01/2023 1648 Last data filed at 10/01/2023 1515 Gross per 24 hour Intake -- Output 3725 ml Net -3725 ml Physical Exam: General appearance: Alert, cooperative, no distress. Eyes: PERRLA, EOM's intact Conjunctiva/corneas moist and clear, pale conjunctiva ENT: Oropharynx clear with moist mucous membranes and no mucosal ulcerations. No thrush. External ears and nose are normal without lesions or scars. Respiratory: Normal work of breathing. No use of accessory muscles. No wheezing, rhonchi or crackles. Cardiovascular: tachycardic, S1, S2 normal, no murmur, rub or gallop. 1+ LE edema. Abdomen: Soft, non-tender, no masses. No hernia. No hepatosplenomegaly. Skin: No rashes, lesions or ulcers. No induration or subcutaneous nodules. Labs/Imaging: Recent Results (from the past 24 hour(s)) Bedside Glucose *Place/Obtain serum glucose if >500(>600 MRH) per glucometer. Collection Time: 09/30/23 9:42 PM Result Value Ref Range Bedside glucose 205 (H) 65 - 99 mg/dL Protime & INR Collection Time: 10/01/23 6:20 AM Result Value Ref Range Protime 18.3 (H) 9.8 - 13.2 sec Inr 1.6 (H) 0.8 - 1.1 CBC auto differential Collection Time: 10/01/23 6:20 AM Result Value Ref Range White Blood Cells 8.4 4.0 - 11.0 X10E9/L RBC count 2.53 (L) 3.80 - 5.20 X10E12/L Hemoglobin 8.0 (L) 11.7 - 15.5 g/dL Hematocrit 24.0 (L) 35 - 47 % MCV 95 80 - 100 fL MCH 31.4 27 - 34 pg MCHC 33.1 32 - 36 g/dL RDW 21.1 (H) 11.5 - 15.0 % Platelets 135 (L) 150 - 450 X10E9/L MPV 9.6 7 - 12 fL % neutrophils 76.4 % % lymphocytes 11.8 % % monocytes 9.2 % % eosinophils 2.0 % % Basophils 0.6 % Neutrophils Absolute (A) 6.4 1.5 - 6.6 X10E9/L Lymphocytes Absolute 1.0 1.0 - 3.5 X10E9/L Monocytes Absolute 0.8 0 - 0.9 X10E9/L Eosinophils Absolute 0.2 0.0 - 0.4 X10E9/L Basophils Absolute 0.0 0.0 - 0.2 X10E9/L Comprehensive metabolic panel Collection Time: 10/01/23 6:20 AM Result Value Ref Range Sodium 143 134 - 146 mmol/L Potassium, Bld 3.9 3.5 - 5.0 mmol/L Chloride 97 (L) 98 - 109 mmol/L CO2 36 (H) 22 - 32 mmol/L Anion gap 10 5 - 15 mmol/L BUN 77 (H) 5 - 27 mg/dL Creatinine 2.52 (H) 0.40 - 1.00 mg/dL Glucose 142 (H) 65 - 99 mg/dL Calcium 8.4 (L) 8.5 - 10.5 mg/dL Total Protein 6.5 6.0 - 8.0 g/dL Albumin 3.5 3.2 - 5.3 g/dL Alkaline Phosphatase 83 39 - 130 U/L AST 18 0 - 41 U/L ALT 11 0 - 31 U/L Total bilirubin 1.0 0.3 - 1.2 mg/dL eGFR (CKD-EPI)non-race dependent 20 (L) >59 ml/min/1.73sq.m Magnesium Collection Time: 10/01/23 6:20 AM Result Value Ref Range Magnesium 2.5 1.8 - 2.6 mg/dL Phosphorus Collection Time: 10/01/23 6:20 AM Result Value Ref Range Phosphorus 2.9 2.4 - 4.9 mg/dL Bedside Glucose *Place/Obtain serum glucose if >500(>600 MRH) per glucometer. Collection Time: 10/01/23 8:37 AM Result Value Ref Range Bedside glucose 146 (H) 65 - 99 mg/dL Bedside Glucose *Place/Obtain serum glucose if >500(>600 MRH) per glucometer. Collection Time: 10/01/23 12:07 PM Result Value Ref Range Bedside glucose 176 (H) 65 - 99 mg/dL Microbiology Results Procedure Component Value Units Date/Time Blood culture #2 [[id number]] (Abnormal) Collected: 09/27/23 0538 Specimen: Blood Updated: 09/29/23 1037 Culture STAPHYLOCOCCUS, COAGULASE NEGATIVE NOT S.LUGDUNENSIS POSSIBLE COLLECTION CONTAMINATION. SINGLE POSITIVE CULTURE IS OF UNCERTAIN CLINICAL SIGNIFICANCE. SUGGEST CONTINUED MONITORING OF REMAINING BLOOD CULTURES. CONTACT MICROBIOLOGY IF FURTHER INFORMATION IS REQUIRED. Staphylococcus species detected by PCR (not S. aureus, S.epidermidis, or S.lugdunensis). Blood culture #1 [[id number]] Collected: 09/27/23 0431 Specimen: Blood Updated: 10/01/23 0546 Specimen Notes ONLY AEROBIC BOTTLE RECEIVED, SUBOPTIMAL VOLUME OF BLOOD COLLECTED, RESULTS MAY BE AFFECTED Culture NO GROWTH 4 DAYS Urine culture [[id number]] Collected: 09/27/23 0405 Specimen: Urine Updated: 09/28/23 0701 Specimen Notes URINE RECEIVED WITHOUT PRESERVATIVE Culture NO GROWTH AT <1000 CFU/mL No results found. All available laboratory, imaging, and microbiology data has been personally reviewed in detail, and accessible in full per EMR. Medications: bumetanide, 2 mg, oral, BID AC darbepoetin stefania (ARANESP) injection, 100 mcg, subcutaneous, Weekly folic acid, 1 mg, oral, Daily insulin lispro, 2-10 Units, subcutaneous, With meals and nightly [START ON 10/05/2023] metOLazone, 2.5 mg, oral, Weekly metoprolol tartrate, 50 mg, oral, BID midodrine, 15 mg, oral, Q6H pantoprazole, 40 mg, oral, QAM AC potassium chloride, 20 mEq, oral, BID sennosides-docusate sodium, 2 tablet, oral, Nightly sodium chloride, 10 mL, intravenous, Q96H sodium chloride, 10 mL, intravenous, Q96H sodium chloride, 10 mL, intravenous, Q8H AND sodium citrate, 2 mL, intravenous, Q8H AND sodium chloride, 10 mL, intravenous, PRN AND sodium chloride, 10 mL, intravenous, PRN AND sodium citrate, 2 mL, intravenous, PRN sodium chloride, 3 mL, intravenous, Q12H sodium citrate, 2 mL, intravenous, Q96H sodium citrate, 2 mL, intravenous, Q96H Infusion: dextrose 2.5 % in water, 1,000 mL infusion, 100 mL/hr, Last Rate: 100 mL/hr (10/01/23 0904) dextrose 5 % in water, 100 mL/hr heparin, 300-3,500 Units/hr sodium chloride 0.9 %, 10 mL/hr, Last Rate: Stopped (09/29/23 0141) sodium chloride 0.9 %, 10 mL/hr, Last Rate: Stopped (09/25/23 0130) sodium chloride 0.9 %, 10 mL/hr, Last Rate: Stopped (09/30/23 0521) sodium chloride 0.9 %, 20 mL/hr, Last Rate: Stopped (09/28/23 1045) sodium chloride 0.9 %, 250 mL sodium chloride 0.9 %, 250 mL PRN medications: calcium gluconate OR calcium gluconate OR calcium gluconate dextrose dextrose 5 % in water [COMPLETED] insulin regular AND dextrose 50 % in water (D50W) AND dextrose 50 % in water (D50W) dextrose 50 % in water (D50W) glucagon (human recombinant) heparin (porcine) magnesium sulfate OR magnesium sulfate metoprolol (LOPRESSOR) IV midodrine potassium chloride OR potassium chloride potassium chloride in water OR potassium chloride in water sodium phosphate IV OR sodium phosphate IV - central line OR sod phos di, mono-K phos mono sodium chloride sodium chloride sodium chloride sodium chloride sodium chloride AND sodium citrate AND sodium chloride AND sodium chloride AND sodium citrate sodium chloride 0.9 % sodium chloride 0.9 % sodium chloride 0.9 % sodium chloride 0.9 % sodium citrate sodium citrate ASSESSMENT and plan: Active Hospital Problems Diagnosis Date Noted Acute kidney injury ([facility]) 09/20/2023 Resolved Problems No resolved problems to display. Distributive shock Etiology not clear Required ICU stay and vasopressor support Currently on midodrine 15 mg q.6, wean down to 10 mg q.6 and monitor Hematochezia One episode of hematochezia 09/24. No recurrence Hemoglobin has been stable Patient refused EGD/colonoscopy and GI signed off Coumadin was initially held due to supratherapeutic INR, she was started on heparin drip for less than 24 hours which was discontinued due to thrombocytopenia. Continue Protonix Monitor Supratherapeutic INR s/p vitamin K reversal INR 1 today Acute on chronic thrombocytopenia Improving Etiology multifactor: Bone marrow suppression in the setting of acute infection and blood loss, possible underlying chronic ITP Monitor CBC, transfuse platelets if balance below 20,000 Acute kidney injury on CKD stage 4 requiring TISSUE SPECIALIST Received 2 sessions of hemodialysis 09/21, 09/22 with improvement in kidney function Continue diuretic therapy Monitor BMP and urine output, avoid nephrotoxic medications Nephrology following Acute hypoxic respiratory failure requiring NIPPV secondary to volume overload Weaned off oxygen today Monitor Acute on chronic systolic heart failure Nonobstructive CAD Switch to p.o. Bumex Strict I&O Salt and fluid restriction Optimization of goal-directed medical therapy outpatient with improvement of blood pressure Persistent atrial fibrillation Continue metoprolol 50 mg b.i.d., I had a lengthy discussion with patient regarding anticoagulation plan, options are: 1. we try heparin drip overnight to make sure she is not bleeding and then start Eliquis if she is ok with the current co-pay botello (527$, deductible of 545$). 2. We can try heparin overnight and discharge her on warfarin with frequent INR checks to ensure she doesn't end up with such a high INR again. 3. If she doesn't want to try heparin drip, I will have no way to know if she is going to bleed on the long acting anticoagulation and in that case she will be discharged off anticoagulation to follow up as outpatient as long as she understands her risk of developing CVA Hyponatremia Continue D 2.5% Monitor BMP Type 2 diabetes mellitus Continue sliding scale Debility PT/OT DVT prophylaxis: Heparin drip Code Status: Full code Disposition: To be determined later. I have spent 45 minutes on this encounter during, before and after the visit. This time included preparation to see the patient, evaluating the patient, performing physical exam, counseling the patient, ordering and reviewing labs and diagnostic studies, documenting the encounter and coordinating the care. Current care plan discussed in detail with the patient and family. They verbalized understanding. Further management will follow based on the clinical course of the patient and results of ongoing evaluation Electronically signed by: ELVI SCHREIBER MD 10/01/2023 Disclaimer Note: To increase efficiency, your provider may have prepared this document using voice recognition technology. In that case, if a word or phrase is confusing, or does not make sense, this is likely due to a recognition error within the program which was not discovered during the provider s review. If you believe an error has occurred, please notify your provider s office at your earliest convenience, so we can correct any mistakes. Images from the original note were not included. [facility] [address] [place] [address] PROGRESS NOTE Harris Castrejon was seen examined at bedside this morning. No reported cardiac events overnight. No chest pain or shortness of breath reported. No orthopnea. Still has leg edema. Hemoglobin improved from 7.4-8.0 today. Platelets also improved from 124-135. Creatinine slightly improved from 2.7-2.5. Review of telemetry showing patient atrial fibrillation, heart rate 102 beats per minute the time I visit, occasional PVCs and occasional ventricular couplets. Three beat runs nonsustained VT noted. SUBJECTIVE Allergies: No Known Allergies CURRENT MEDICATIONS bumetanide, 2 mg, intravenous, BID AC darbepoetin stefania (ARANESP) injection, 100 mcg, subcutaneous, Weekly folic acid, 1 mg, oral, Daily insulin lispro, 2-10 Units, subcutaneous, With meals and nightly metOLazone, 10 mg, oral, Daily metoprolol tartrate, 50 mg, oral, BID midodrine, 15 mg, oral, Q6H pantoprazole, 40 mg, oral, QAM AC potassium chloride, 30 mEq, oral, Q6H sennosides-docusate sodium, 2 tablet, oral, Nightly sevelamer, 800 mg, oral, TID with meals sodium chloride, 10 mL, intravenous, Q96H sodium chloride, 10 mL, intravenous, Q96H sodium chloride, 10 mL, intravenous, Q8H AND sodium citrate, 2 mL, intravenous, Q8H AND sodium chloride, 10 mL, intravenous, PRN AND sodium chloride, 10 mL, intravenous, PRN AND sodium citrate, 2 mL, intravenous, PRN sodium chloride, 3 mL, intravenous, Q12H sodium citrate, 2 mL, intravenous, Q96H sodium citrate, 2 mL, intravenous, Q96H CONTINUOUS INFUSIONS dextrose 2.5 % in water, 1,000 mL infusion, 100 mL/hr, Last Rate: 100 mL/hr (10/01/23 0904) dextrose 5 % in water, 100 mL/hr sodium chloride 0.9 %, 10 mL/hr, Last Rate: Stopped (09/29/23 0141) sodium chloride 0.9 %, 10 mL/hr, Last Rate: Stopped (09/25/23 0130) sodium chloride 0.9 %, 10 mL/hr, Last Rate: Stopped (09/30/23 0521) sodium chloride 0.9 %, 20 mL/hr, Last Rate: Stopped (09/28/23 1045) sodium chloride 0.9 %, 250 mL sodium chloride 0.9 %, 250 mL OBJECTIVE CBC: Results from last 7 days Lab Units 10/01/23 0609/30/2331409/29/23223 WBC X10E9/L 8.4 9.5 9.4 HEMOGLOBIN g/dL 8.0* 7.4* 7.8* HEMATOCRIT % 24.0* 22.3* 24.2* MCV fL 95 95 96 PLATELETS X10E9/L 135* 124* 100* BMP: Results from last 7 days Lab Units 10/01/23 0609/30/23 1526 09/30/2331409/29/23223 SODIUM mmol/L 143 -- 147* 150* POTASSIUM mmol/L 3.9 4.0 3.3* 3.2* CHLORIDE mmol/L 97* -- 101 105 CO2 mmol/L 36* -- 34* 32 BUN mg/dL 77* -- 83* 87* CREATININE mg/dL 2.52* -- 2.72* 3.03* CALCIUM mg/dL 8.4* -- 8.2* 8.4* PHOSPHORUS mg/dL 2.9 -- 3.1 3.7 MAGNESIUM mg/dL 2.5 -- 1.9 1.8 PT/INR: Results from last 7 days Lab Units 10/01/2361909/30/2331409/29/23223 PROTIME sec 18.3* 21.8* 23.5* INR 1.6* 1.9* 2.1* APTT: MAG: Results from last 7 days Lab Units 10/01/2361909/30/2331409/29/23223 MAGNESIUM mg/dL 2.5 1.9 1.8 D Dimer: Troponin I ProBNP Lipid Panel: Lab Results Component Value Date CHOL 127 (L) 09/13/2021 TRIG 159 (H) 09/13/2021 HDL 38 (L) 09/13/2021 Liver Panel: No results found for: ALB HgA1C: Lab Results Component Value Date HGBA1C 6.3 (H) 09/29/2023 ABG: Lab Results Component Value Date pH 7.431 09/27/2023 PCO2 37.8 09/27/2023 PO2 73 (L) 09/27/2023 Base,Excess 1.0 09/27/2023 Base,Deficit 3.0 (H) 09/23/2023 Portable HCO3 25.1 09/27/2023 SPO2 100 09/27/2023 LAST ECHO (Within 2 Years) Echo complete W/ contrast Result Date: 09/04/2023 Left Ventricle: There is mild concentric increased wall thickness/hypertrophy. Systolic function is mildly to moderately decreased with an ejection fraction of 40-45%. Mitral Valve: There is mild to moderate regurgitation with a centrally directed and a posteriorly directed jet. There is no evidence of mitral valve stenosis. Tricuspid Valve: There is moderate regurgitation. The tricuspid valve regurgitation jet is eccentric. There is no evidence of tricuspid valve stenosis. RADIOLOGY: No results found. PHYSICAL EXAM Admission Weight: Weight: 131.8 kg (290 lb 9.1 oz) I/O last 3 completed shifts: In: 2960.5 [P.O.:595; I.V.:2007.1; IV Piggyback:358.5] Out: 6225 [Urine:6225] Weight change: Wt Readings from Last 3 Encounters: 09/30/23 114.8 kg (253 lb 1.4 oz) 09/19/23 132 kg (291 lb) 09/05/23 114.3 kg (252 lb) Vitals: Vitals: 09/30/23 2255 09/30/23 2300 10/01/23 0339 10/01/23 0800 BP: 104/73 104/73 102/65 97/65 Pulse: 116 (!) 133 90 107 Resp: 25 (!) 30 20 Temp: 36.7 C (98 F) 36.8 C (98.2 F) 36.8 C (98.2 F) TempSrc: Oral Oral SpO2: 94% 97% 95% 100% Weight: Height: Admit Weight Weight: 131.8 kg (290 lb 9.1 oz) Last 3 Weights Last 3 Weight Readings 09/28/23 0500 09/29/23 0400 09/30/23 0500 Weight: 121 kg (266 lb 12.1 oz) 120.4 kg (265 lb 6.9 oz) 114.8 kg (253 lb 1.4 oz) Body mass index is 42.12 kg/m . INTAKE/OUTPUT I/O last 3 completed shifts: In: 2960.5 [P.O.:595; I.V.:2007.1; IV Piggyback:358.5] Out: 6225 [Urine:6225] Intake/Output Summary (Last 24 hours) at 10/01/2023 0912 Last data filed at 10/01/2023 0341 Gross per 24 hour Intake 1040.59 ml Output 3700 ml Net -2659.41 ml General appearance: Alert oriented and cooperative, In no acute distress Lungs: Clear to ausculation bilaterally, no use of accessory muscles Heart:: Irregularly irregular rhythm, tachycardia, with normal S1 and S2, no murmurs and no gallops. Abdomen: Soft, non-tender, bowel sounds normal. Extremities: 2+ bilateral lower extremity edema ASSESSMENT Acute on chronic HFpEF NICM with LVEF 40-45% TTE 08/2023 Persistent atrial fibrillation with RVR Hx of atrial flutter s/p RFA 2020 [id number] MR, moderate TR Moderate nonobstructive CAD - [facility] 01/2021 ITP Acute kidney injury Diabetes mellitus Anemia Bacteremia 1/2 blood cultures 09/27/2023 - likely contaminant Hematochezia PLAN -patient stated that the time I visit. -continue IV diuresis. Monitor kidney function electrolytes. -limit sodium intake to no more than 2 g per day, fluid intake to no more than 64 oz per day. -strict I's and O's and daily weights. -not candidate for anticoagulation at this time. Plan to resume anticoagulation when cleared by Gastroenterology. -will follow-up. RAFAELA ALLEN MD This note was completed using a voice workforce management manager system. Every effort was made to ensure accuracy. However, inadvertent computerized workforce management manager errors may be present. Images from the original note were not included. Rapid Response Event Note Patient: Harris Castrejno : 1955 Age: 68 y.o. Length of Stay: 11 days Admission Diagnosis: Acute kidney injury ([facility]) [N17.9] SITUATION Time of Call: 1934 Arrival Time: 1944 Rapid Response called due to Soft blood pressures with Afib RVR, HR 100-140 BACKGROUND Past Medical History: Diagnosis Date Arrhythmia Hypertension Injury of back Disc L4 and L5 Obesity Systolic and diastolic CHF, acute ([facility]) 09/03/2023 Visual impairment ASSESSMENT Upon my arrival, Harris Castrejon resting quietly, awakens to verbal stimuli; A+Ox4, appropriate; denies any chest pain, shortness of breath, palpitations, dizziness or nausea. Skin pink warm dry, capillary refill <2 seconds, with SBP 80's - 90's/60's, RR 14, Sp02 97% on . RN reported concerns re: soft BP in presence of elevated HR, and was not giving any of pt's evening medications until BP issue resolved. RECOMMENDATIONS / PLAN / OUTCOME Discussed with RN importance of giving dialysis pt's scheduled Proamitine, especially when on multiple diuretics, with low EF. Also discussed pt. Is a chronic AFIB pt, has had ablations in the past, & cardiology has been following & has noted elevated HR in last progress note. Discussed with RN signs of symptomatic hypotension - diaphoresis, pallor, cool skin, delayed capillary refill, altered mental status - to watch for, (of which pt. Was not currently having any of these symptoms, & was tolerating current BP readings well). RN reported she would give pt. Proamitine as scheduled, & notify Cardiology representative government relations. Asked RN to call with any further concerns. End of Call: [phone] Thank you, Samanta Molina RN Rapid Response: [facility] Images from the original note were not included. Nephrology Daily Progress Note IMPRESSION: Nonoliguric acute kidney injury on underlying chronic kidney disease stage 4 with baseline creatinine around 1.8 mg/dL. Acute kidney injury likely secondary to acute tubular necrosis, patient received 2 sessions of hemodialysis 09/21/2023 and 09/22/2023, renal function now showing signs of improvement. Creatinine currently down to 2.7 mg/dL. Acute hypoxic respiratory failure secondary to fluid overload, now improving Atrial fibrillation with RVR, cardiology managing Acute on chronic combined systolic and diastolic congestive heart failure, improving with ongoing diuresis Anemia of chronic disease, along with iron deficiency anemia on IV iron Hyperphosphatemia, improved Metabolic encephalopathy Hypernatremia due to free water deficit Hypokalemia GI bleed, Gastroenterology Service following plans of EGD/colonoscopy this week Volume status: Now close to euvolemic net-15 L since admission Plan : Continue IV Bumex 2 mg IV b.i.d. Continue metolazone Potassium chloride 30 mEq q.i.d. Continue D 2.5 at 100 cc an hour with parameters Renal panel daily Strict I&Os No indication for renal placement therapy No objection to removing patient's acute Trialysis catheter by tomorrow if renal function remains stable INTERVAL HISTORY/History of present illness: Patient seen examined at bedside. Hemodynamically stable. On nasal cannula 3 L. heart rate now better controlled this morning. Stable urine output 3.7 L documented last 24 hours. PROBLEM LIST: Acute on chronic renal failure stage 4 with serum creatinine of 1.8 mg/dL in 2020, Renal ultrasound from 09/04/2023 showing right kidney 10.8 cm, left kidney 10.9 cm, no hydronephrosis noted. The urinalysis revealed more than 720 RBC and 185 WBC per high-power field, urine protein creatinine ratio was 16.8, FENA was more than 2%, TERRANCE, anti-GBM and vasculitis profile were negative, serum complements were within normal, serum protein electrophoresis unremarkable Shock Acute respiratory failure with bilateral pulmonary infiltrate Atrial fibrillation with history of ablation on chronic anticoagulation Diabetes mellitus type 2 Coronary artery disease, cardiac catheterization in 1999 revealed proximal LAD to mid LAD had 50% stenosis, the left circumflex had 50% proximal to mid lesion, the right coronary artery had 65% ostial to mid lesion Obesity Chronic systolic congestive heart failure Injury to the back Tonsillectomy Myringotomy tube VITAL SIGNS TREND: Vitals: 09/30/23 0600 09/30/23 0700 09/30/23 0800 09/30/23 0936 BP: 107/63 102/61 102/57 107/65 Pulse: 104 95 95 63 Resp: (!) 46 (!) 31 (!) 28 21 Temp: 36.5 C (97.7 F) 36.7 C (98.1 F) TempSrc: Axillary Oral SpO2: 96% 98% 94% 98% Weight: Height: INTAKE/OUTPUT: Intake/Output Summary (Last 24 hours) at 09/30/2023 1125 Last data filed at 09/30/2023 0915 Gross per 24 hour Intake 3915.25 ml Output 3215 ml Net 700.25 ml I/O this shift: In: 162.4 [IV Piggyback:162.4] Out: 475 [Urine:475] WEIGHT: Wt Readings from Last 3 Encounters: 09/30/23 114.8 kg (253 lb 1.4 oz) 09/19/23 132 kg (291 lb) 09/05/23 114.3 kg (252 lb) bumetanide, 2 mg, intravenous, BID with meals darbepoetin stefania (ARANESP) injection, 100 mcg, subcutaneous, Weekly folic acid, 1 mg, oral, Daily insulin lispro, 2-10 Units, subcutaneous, With meals and nightly metOLazone, 10 mg, oral, Daily metoprolol tartrate, 50 mg, oral, BID midodrine, 15 mg, oral, Q6H pantoprazole, 40 mg, oral, QAM AC potassium chloride, 30 mEq, oral, Q6H sennosides-docusate sodium, 2 tablet, oral, Nightly sevelamer, 800 mg, oral, TID with meals sodium chloride, 10 mL, intravenous, Q96H sodium chloride, 10 mL, intravenous, Q96H sodium chloride, 10 mL, intravenous, Q8H AND sodium citrate, 2 mL, intravenous, Q8H AND sodium chloride, 10 mL, intravenous, PRN AND sodium chloride, 10 mL, intravenous, PRN AND sodium citrate, 2 mL, intravenous, PRN sodium chloride, 3 mL, intravenous, Q12H sodium citrate, 2 mL, intravenous, Q96H sodium citrate, 2 mL, intravenous, Q96H dextrose 5 % in water, 100 mL/hr sodium chloride 0.9 %, 10 mL/hr, Last Rate: Stopped (12/31/23 0141) sodium chloride 0.9 %, 10 mL/hr, Last Rate: Stopped (09/25/23 0130) sodium chloride 0.9 %, 10 mL/hr, Last Rate: Stopped (09/30/23 0521) sodium chloride 0.9 %, 20 mL/hr, Last Rate: Stopped (09/28/23 1045) sodium chloride 0.9 %, 250 mL sodium chloride 0.9 %, 250 mL PHYSICAL EXAM: Blood pressure 107/65, pulse 63, temperature 36.7 C (98.1 F), temperature source Oral, resp. rate 21, height 165.1 cm (5' 5 ), weight 114.8 kg (253 lb 1.4 oz), SpO2 98%. Temp: [36.3 C (97.3 F)-37.1 C (98.8 F)] 36.7 C (98.1 F) Pulse: [63-155] 63 Resp: [16-46] 21 BP: (80-118)/(43-92) 107/65 SpO2: [92 %-99 %] 98 % O2 Device: Nasal cannula O2 Flow Rate (L/min): [2 L/min-3 L/min] 3 L/min General appearance: Awake. Comfortable HEENT: no JVD, no carotid bruits, no lymphadenopathy. Cardiovascular: normal S1-S2 Respiratory: Gastrointestinal: soft, no tenderness, no guarding, positive bowel sounds Musculoskeletal: 1-2+ edema Skin : No Rash. Neuro: Alert and awake LABORATORY EVALUATION: Results from last 7 days Lab Units 09/30/23 0315 09/29/23 0224 09/28/23 0230 09/27/23 0312 09/26/23 1927 09/26/23 0300 SODIUM mmol/L 147* 150* 148* 146 -- 144 POTASSIUM mmol/L 3.3* 3.2* 3.2* 3.7 3.5 3.4* CHLORIDE mmol/L 101 105 104 104 -- 103 CO2 mmol/L 34* 32 30 27 -- 24 BUN mg/dL 83* 87* 86* 85* -- 78* CREATININE mg/dL 2.72* 3.03* 3.24* 3.54* -- 3.66* CALCIUM mg/dL 8.2* 8.4* 8.7 8.6 -- 8.1* MAGNESIUM mg/dL 1.9 1.8 2.0 2.1 -- 2.2 PHOSPHORUS mg/dL 3.1 3.7 5.3* 4.6 -- 5.4* Results from last 7 days Lab Units 09/30/23 0315 09/29/23 0224 09/28/23 0420 09/27/23 0312 09/26/23 2350 09/26/23 0300 WBC X10E9/L 9.5 9.4 10.9 18.7* -- 11.3* HEMOGLOBIN g/dL 7.4* 7.8* 7.5* 8.1* 7.4* 7.7* HEMATOCRIT % 22.3* 24.2* 23.2* 24.8* 23.0* 23.4* PLATELETS X10E9/L 124* 100* 81* 69* -- 36* Results from last 7 days Lab Units 09/30/23 0315 09/29/23 0224 09/28/23 0230 09/27/23 0312 09/25/23 0315 TOTAL PROTEIN g/dL 6.2 6.4 6.1 6.3 6.2 ALBUMIN g/dL 3.6 3.7 3.4 3.7 3.7 AST U/L 15 16 18 20 19 ALT U/L 14 11 11 18 12 DEDE RIVERA D.O. [facility] Thank you for your consultation and allowing us to participate in the care of Harris Castrejon and please do not hesitate to call us with any questions at: Office: [phone] Office Answering Service: [phone] Please feel free to contact me through [employer] [facility] Secure chat during the daytime hours, if no response after 5 minutes then call the answering service. This note was created with the assistance of a speech-recognition program. Although the intention is to generate a document that actually reflects the content of the visit, no guarantees can be provided that every mistake has been identified and corrected by editing. Images from the original note were not included. [facility] Progress Note 09/30/2023 Patient Name: Harris Castrejon : 1955 Hospital Day: 11 SUBJECTIVE Follow-up for anemia, shock, coagulopathy. Patient transferred out of ICU yesterday. Chart/orders/data reviewed extensively. No overnight events. Afebrile. Denies dyspnea or chest discomfort. Denies abdominal issues such as pain, nausea/vomiting/constipation/diar jackie. Denies dysuria. No bleeding events noted. She is frustrated that she remains in the hospital. No other new acute complaints today. OBJECTIVE Vital Signs: Temp: [36.3 C (97.3 F)-37.1 C (98.8 F)] 36.7 C (98.1 F) Pulse: [63-155] 63 Resp: [16-46] 21 BP: (80-118)/(43-92) 107/65 SpO2: [67 %-99 %] 98 % O2 Device: Nasal cannula O2 Flow Rate (L/min): [2 L/min-3 L/min] 3 L/min Weight: Body mass index is 42.12 kg/m . Admission weight: 131.8 kg (290 lb 9.1 oz) Wt Readings from Last 3 Encounters: 09/30/23 114.8 kg (253 lb 1.4 oz) 09/19/23 132 kg (291 lb) 09/05/23 114.3 kg (252 lb) Input/Output: Intake/Output Summary (Last 24 hours) at 09/30/2023 1019 Last data filed at 09/30/2023 0915 Gross per 24 hour Intake 3915.25 ml Output 3490 ml Net 425.25 ml Physical Exam: Gen: AOx3, NAD, chronically ill yet non-toxic appearing. HEENT/Neck: Sclera anicteric. Conjunctivae normal. OP clear, MMM. Neck supple. No JVD. CV: Lkqz-[id number]-ptsidroc tachycardia, irregularly irregular rhythm, no m/r/g. Radial/DP/PT pulses 2+ b/l. No carotid bruits auscultated. Resp/Chest: Chest wall non-tender to palpation. Symmetric chest expansion. CTAB anterolaterally w/o w/r/r. Abd: Abdomen soft, NT/ND, normoactive BSx4, no hepatosplenomegaly Extr: 1 to 2+ nonpitting peripheral edema present. Skin: Warm, dry, no exanthem or lesions visualized. Scattered ecchymoses throughout trunk and extremities. Neuro/Psych: No gross neurologic motor or sensory deficits. Appropriate mood and affect. Lines/tubes: Right IJ temporary hemodialysis catheter, indwelling urinary catheter Labs/Imaging: Recent Results (from the past 24 hour(s)) Bedside Glucose *Place/Obtain serum glucose if >500(>600 MRH) per glucometer. Collection Time: 09/29/23 2:04 PM Result Value Ref Range Bedside glucose 187 (H) 65 - 99 mg/dL Bedside Glucose *Place/Obtain serum glucose if >500(>600 MRH) per glucometer. Collection Time: 09/29/23 5:11 PM Result Value Ref Range Bedside glucose 254 (H) 65 - 99 mg/dL Bedside Glucose *Place/Obtain serum glucose if >500(>600 MRH) per glucometer. Collection Time: 09/29/23 10:04 PM Result Value Ref Range Bedside glucose 300 (H) 65 - 99 mg/dL Protime & INR Collection Time: 09/30/23 3:15 AM Result Value Ref Range Protime 21.8 (H) 9.8 - 13.2 sec Inr 1.9 (H) 0.8 - 1.1 CBC auto differential Collection Time: 09/30/23 3:15 AM Result Value Ref Range White Blood Cells 9.5 4.0 - 11.0 X10E9/L RBC count 2.35 (L) 3.80 - 5.20 X10E12/L Hemoglobin 7.4 (L) 11.7 - 15.5 g/dL Hematocrit 22.3 (L) 35 - 47 % MCV 95 80 - 100 fL MCH 31.6 27 - 34 pg MCHC 33.2 32 - 36 g/dL RDW 20.2 (H) 11.5 - 15.0 % Platelets 124 (L) 150 - 450 X10E9/L MPV 9.7 7 - 12 fL % neutrophils 81.4 % % lymphocytes 7.9 % % monocytes 8.7 % % eosinophils 1.7 % % Basophils 0.3 % Neutrophils Absolute (A) 7.8 (H) 1.5 - 6.6 X10E9/L Lymphocytes Absolute 0.8 (L) 1.0 - 3.5 X10E9/L Monocytes Absolute 0.8 0 - 0.9 X10E9/L Eosinophils Absolute 0.2 0.0 - 0.4 X10E9/L Basophils Absolute 0.0 0.0 - 0.2 X10E9/L Comprehensive metabolic panel Collection Time: 09/30/23 3:15 AM Result Value Ref Range Sodium 147 (H) 134 - 146 mmol/L Potassium, Bld 3.3 (L) 3.5 - 5.0 mmol/L Chloride 101 98 - 109 mmol/L CO2 34 (H) 22 - 32 mmol/L Anion gap 12 5 - 15 mmol/L BUN 83 (H) 5 - 27 mg/dL Creatinine 2.72 (H) 0.40 - 1.00 mg/dL Glucose 153 (H) 65 - 99 mg/dL Calcium 8.2 (L) 8.5 - 10.5 mg/dL Total Protein 6.2 6.0 - 8.0 g/dL Albumin 3.6 3.2 - 5.3 g/dL Alkaline Phosphatase 87 39 - 130 U/L AST 15 0 - 41 U/L ALT 14 0 - 31 U/L Total bilirubin 0.7 0.3 - 1.2 mg/dL eGFR (CKD-EPI)non-race dependent 19 (L) >59 ml/min/1.73sq.m Magnesium Collection Time: 09/30/23 3:15 AM Result Value Ref Range Magnesium 1.9 1.8 - 2.6 mg/dL Phosphorus Collection Time: 09/30/23 3:15 AM Result Value Ref Range Phosphorus 3.1 2.4 - 4.9 mg/dL Bedside Glucose *Place/Obtain serum glucose if >500(>600 MRH) per glucometer. Collection Time: 09/30/23 8:09 AM Result Value Ref Range Bedside glucose 173 (H) 65 - 99 mg/dL All available laboratory, imaging, and microbiology data has been personally reviewed in detail, and accessible in full per EMR. Medications: bumetanide, 2 mg, intravenous, BID with meals cefTRIAXone (ROCEPHIN) IV, 1,000 mg, intravenous, Q24H darbepoetin stefania (ARANESP) injection, 100 mcg, subcutaneous, Weekly folic acid, 1 mg, oral, Daily insulin lispro, 2-10 Units, subcutaneous, With meals and nightly metOLazone, 10 mg, oral, Daily metoprolol tartrate, 50 mg, oral, BID midodrine, 15 mg, oral, Q6H pantoprazole, 40 mg, oral, QAM AC potassium chloride, 30 mEq, oral, Q6H sennosides-docusate sodium, 2 tablet, oral, Nightly sevelamer, 800 mg, oral, TID with meals sodium chloride, 10 mL, intravenous, Q96H sodium chloride, 10 mL, intravenous, Q96H sodium chloride, 10 mL, intravenous, Q8H AND sodium citrate, 2 mL, intravenous, Q8H AND sodium chloride, 10 mL, intravenous, PRN AND sodium chloride, 10 mL, intravenous, PRN AND sodium citrate, 2 mL, intravenous, PRN sodium chloride, 3 mL, intravenous, Q12H sodium citrate, 2 mL, intravenous, Q96H sodium citrate, 2 mL, intravenous, Q96H ASSESSMENT # Severe distributive shock requiring pressor support # lower GI hemorrhage # acute blood loss anemia # severe warfarin induced coagulopathy (INR >16) status post vitamin K reversal # thrombocytopenia, moderate # acute hypoxic respiratory failure requiring BiPAP NIPPV support # acute kidney injury superimposed on CKD stage 4 requiring new initiation of hemodialysis # hypotension requiring high-dose midodrine therapy # acute on chronic systolic heart failure with LVEF 40-45%, [id number] MR/TR # nonobstructive CAD # persistent atrial fibrillation with rapid ventricular response, formerly on warfarin anticoagulation (held) # class 3 obesity # DM2, [id number]-qcylwzrak # UTI # acute metabolic encephalopathy with agitation, resolved PLAN -ICU orders reviewed/reconciled -appreciate most recent Cardiology, GI, nephrology input -wean O2 support by nasal cannula as tolerated -thrombocytopenia improving -no signs/symptoms of ongoing active GI blood loss -tentative plan for endoscopy this week however has had persistent elevation of PT/INR; may be secondary to relative vitamin K deficiency, drug-drug interactions while on antibiotics, lingering ischemic hepatopathy albeit trans amylases are within normal limits; consider low-dose oral vitamin K today -however upon my interview and exam today, she is presently refusing recommended endoscopy, r/b/a reviewed directly with patient -ongoing diuresis per Nephrology, serial volume assessments -D 2.5/water infusion to correct free water deficit -wean midodrine as tolerated -trend renal indices, overall improved; monitor with hemodialysis holiday for assessment of long-term renal replacement therapy needs -metoprolol tartrate for rate control, titrating to goal -will need to collaborate on long-term anticoagulation strategy prior to discharge -discontinue ceftriaxone, urine/blood cultures negative, has been on antimicrobial since 09/24 per my review DVT prophylaxis: Mechanical Diet: Diabetic/renal Code status: Full Discharge planning: Pending PT/OT evaluation, high likelihood of post acute care facility needs; patient requesting [place] paperwork to be completed, advised to bring to hospital Electronically signed by: Reginald Resendiz MD [facility]atology Progress Note IDENTIFYING DATA PATIENT: Harris Castrejon ADMIT DATE: 09/20/2023 TIME OF EVALUATION: 09/30/2023 9:53 AM HOSPITAL STAY: LOS: 10 days REASON FOR HOSPITALIZATION: SUBJECTIVE/INTERVAL HISTORY Harris Castrejon's events from the last 12-24 hours were reviewed. Discussed possibility of EGD and colonoscopy tomorrow with patient and her who was at bedside. They are adamant that they do not want this done. Her states that it is just for money purposes and used profanity including God damn , and patient states that all of her neighbors have had complications from having a colonoscopy done and for this reason she does not want it. She has never had 1 done. Did explain to patient and her family purpose of ruling out malignancy or other cause of GI bleeding with these scopes. Despite knowing this they still are adamant that she will not have it done.. OBJECTIVE MEDICATIONS SCHEDULED: bumetanide, 2 mg, intravenous, BID with meals cefTRIAXone (ROCEPHIN) IV, 1,000 mg, intravenous, Q24H darbepoetin stefania (ARANESP) injection, 100 mcg, subcutaneous, Weekly folic acid, 1 mg, oral, Daily insulin lispro, 2-10 Units, subcutaneous, With meals and nightly metOLazone, 10 mg, oral, Daily metoprolol tartrate, 50 mg, oral, BID midodrine, 15 mg, oral, Q6H pantoprazole, 40 mg, oral, QAM AC potassium chloride, 30 mEq, oral, Q6H sennosides-docusate sodium, 2 tablet, oral, Nightly sevelamer, 800 mg, oral, TID with meals sodium chloride, 10 mL, intravenous, Q96H sodium chloride, 10 mL, intravenous, Q96H sodium chloride, 10 mL, intravenous, Q8H AND sodium citrate, 2 mL, intravenous, Q8H AND sodium chloride, 10 mL, intravenous, PRN AND sodium chloride, 10 mL, intravenous, PRN AND sodium citrate, 2 mL, intravenous, PRN sodium chloride, 3 mL, intravenous, Q12H sodium citrate, 2 mL, intravenous, Q96H sodium citrate, 2 mL, intravenous, Q96H PRNs: calcium gluconate, 1,000 mg, PRN Or calcium gluconate, 2,000 mg, PRN Or calcium gluconate, 3,000 mg, PRN dextrose, 15 g, PRN dextrose 5 % in water, 100 mL/hr, Continuous PRN dextrose 50 % in water (D50W), 25 g, Once PRN And dextrose 50 % in water (D50W), 50 g, Once PRN dextrose 50 % in water (D50W), 25 mL, PRN glucagon (human recombinant), 1 mg, PRN magnesium sulfate, 2,000 mg, PRN Or magnesium sulfate, 4,000 mg, PRN metoprolol (LOPRESSOR) IV, 5 mg, Q6H PRN midodrine, 10 mg, PRN potassium chloride, 20-50 mEq, PRN Or potassium chloride, 20-50 mEq, PRN potassium chloride in water, 10 mEq, PRN Or potassium chloride in water, 10 mEq, PRN sodium phosphate IV, 20 mmol, PRN Or sodium phosphate IV - central line, 20 mmol, PRN Or sod phos di, mono-K phos mono, 2 tablet, PRN sodium chloride, 10 mL, PRN sodium chloride, 10 mL, PRN sodium chloride, 10 mL, PRN sodium chloride, 10 mL, PRN sodium chloride, 10 mL, PRN And sodium chloride, 10 mL, PRN And sodium citrate, 2 mL, PRN sodium chloride 0.9 %, 10 mL/hr, Continuous PRN sodium chloride 0.9 %, 10 mL/hr, Continuous PRN sodium chloride 0.9 %, 10 mL/hr, Continuous PRN sodium chloride 0.9 %, 20 mL/hr, Continuous PRN sodium citrate, 2 mL, PRN sodium citrate, 2 mL, PRN ALLERGIES: No Known Allergies Physical VITALS: BP 107/65 Pulse 63 Temp 36.7 C (98.1 F) (Oral) Resp 21 Ht 165.1 cm (5' 5 ) Wt 114.8 kg (253 lb 1.4 oz) SpO2 98% BMI 42.12 kg/m GEN: alert and oriented x3 LABS AND IMAGING CBC: Lab Results Component Value Date WBC 9.5 09/30/2023 HGB 7.4 (L) 09/30/2023 HCT 22.3 (L) 09/30/2023 MCV 95 09/30/2023 PLT 124 (L) 09/30/2023 BMP: Lab Results Component Value Date GLU 173 (H) 09/30/2023 CALCIUM 8.2 (L) 09/30/2023 SODIUM 147 (H) 09/30/2023 K 3.3 (L) 09/30/2023 CO2 34 (H) 09/30/2023 BUN 83 (H) 09/30/2023 CREATININE 2.72 (H) 09/30/2023 IMAGING: ASSESSMENT AND PLAN Harris Castrejon is a 68 y.o. female with a PMH of Afib on Coumadin, hypertension, back injury, obesity and congestive heart failure, admitted for acute kidney injury. We are asked to see her for gastrointestinal bleeding. Hematochezia -rectal bleeding consistent with hemorrhoidal secondary to acute thrombocytopenia in the face of severe supratherapeutic INR of 16, now 2.1 -Plts now 100 - no active signs of bleeding - Hgb is stable - no prior endoscopy 2. Dysphagia - prior to admission 3. 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 Normocytic Anemia - Hgb stable above 7 last several checks - Iron and Aranesp per Nephrology -Folate deficiency, on oral folate 5. Hx Afib on warfarin - INR 1.9 PLAN: patient and family were made aware of rationale for EGD/colonoscopy specifically to evaluate for GI malignancy as well as other causes of bleeding. Despite this they are adamant that they do not want it done. GI service will sign off, please call back prn Discussed w/ attending physician NICOLAS Rascon [facility] [address] [address] PH: [phone] NICOLAS Davalos 09/30/23 142 Images from the original note were not included. [facility] [address] [place] [address] PROGRESS NOTE Harris Castrejon currently getting washed up. Rates are in the 130 with some breakthrough in the 150s. SUBJECTIVE Allergies: No Known Allergies CURRENT MEDICATIONS bumetanide, 2 mg, intravenous, BID with meals cefTRIAXone (ROCEPHIN) IV, 1,000 mg, intravenous, Q24H darbepoetin stefania (ARANESP) injection, 100 mcg, subcutaneous, Weekly folic acid, 1 mg, oral, Daily insulin lispro, 2-10 Units, subcutaneous, With meals and nightly iron sucrose, 200 mg, intravenous, Every Other Day metOLazone, 10 mg, oral, Daily metoprolol tartrate, 50 mg, oral, BID midodrine, 15 mg, oral, Q6H pantoprazole, 40 mg, oral, QAM AC potassium chloride, 30 mEq, oral, Q6H sennosides-docusate sodium, 2 tablet, oral, Nightly sevelamer, 800 mg, oral, TID with meals sodium chloride, 10 mL, intravenous, Q96H sodium chloride, 10 mL, intravenous, Q96H sodium chloride, 10 mL, intravenous, Q8H AND sodium citrate, 2 mL, intravenous, Q8H AND sodium chloride, 10 mL, intravenous, PRN AND sodium chloride, 10 mL, intravenous, PRN AND sodium citrate, 2 mL, intravenous, PRN sodium chloride, 3 mL, intravenous, Q12H sodium citrate, 2 mL, intravenous, Q96H sodium citrate, 2 mL, intravenous, Q96H CONTINUOUS INFUSIONS dextrose 2.5 % in water, 1,000 mL infusion, 100 mL/hr, Last Rate: 100 mL/hr (09/29/23 1422) dextrose 5 % in water, 100 mL/hr sodium chloride 0.9 %, 10 mL/hr, Last Rate: Stopped (09/29/23 014) sodium chloride 0.9 %, 10 mL/hr, Last Rate: Stopped (09/25/23 0130) sodium chloride 0.9 %, 10 mL/hr, Last Rate: 10 mL/hr (09/29/23 014) sodium chloride 0.9 %, 20 mL/hr, Last Rate: Stopped (09/28/23 1045) sodium chloride 0.9 %, 250 mL sodium chloride 0.9 %, 250 mL OBJECTIVE CBC: Results from last 7 days Lab Units 09/29/2322309/28/23 0420 09/27/23311 WBC X10E9/L 9.4 10.9 18.7* HEMOGLOBIN g/dL 7.8* 7.5* 8.1* HEMATOCRIT % 24.2* 23.2* 24.8* MCV fL 96 96 95 PLATELETS X10E9/L 100* 81* 69* BMP: Results from last 7 days Lab Units 09/29/2322309/28/23 02309/27/23 031 SODIUM mmol/L 150* 148* 146 POTASSIUM mmol/L 3.2* 3.2* 3.7 CHLORIDE mmol/L 105 104 104 CO2 mmol/L 32 30 27 BUN mg/dL 87* 86* 85* CREATININE mg/dL 3.03* 3.24* 3.54* CALCIUM mg/dL 8.4* 8.7 8.6 PHOSPHORUS mg/dL 3.7 5.3* 4.6 MAGNESIUM mg/dL 1.8 2.0 2.1 PT/INR: Results from last 7 days Lab Units 09/29/2322309/28/23 02309/27/23311 PROTIME sec 23.5* 22.9* 25.5* INR 2.1* 2.0* 2.3* APTT: MAG: Results from last 7 days Lab Units 09/29/23 0224 09/28/23 0230 09/27/23 0312 MAGNESIUM mg/dL 1.8 2.0 2.1 D Dimer: Troponin I ProBNP Lipid Panel: Lab Results Component Value Date CHOL 127 (L) 09/13/2021 TRIG 159 (H) 09/13/2021 HDL 38 (L) 09/13/2021 Liver Panel: No results found for: ALB HgA1C: Lab Results Component Value Date HGBA1C 10.1 (H) 02/08/2021 ABG: Lab Results Component Value Date pH 7.431 09/27/2023 PCO2 37.8 09/27/2023 PO2 73 (L) 09/27/2023 Base,Excess 1.0 09/27/2023 Base,Deficit 3.0 (H) 09/23/2023 Portable HCO3 25.1 09/27/2023 SPO2 100 09/27/2023 CV TESTING HISTORY: ECHO: Echo complete W/ contrast Result Date: 09/04/2023 Left Ventricle: There is mild concentric increased wall thickness/hypertrophy. Systolic function is mildly to moderately decreased with an ejection fraction of 40-45%. Mitral Valve: There is mild to moderate regurgitation with a centrally directed and a posteriorly directed jet. There is no evidence of mitral valve stenosis. Tricuspid Valve: There is moderate regurgitation. The tricuspid valve regurgitation jet is eccentric. There is no evidence of tricuspid valve stenosis. TELEMETRY: afib PHYSICAL EXAM Admission Weight: Weight: 131.8 kg (290 lb 9.1 oz) I/O last 3 completed shifts: In: 2810.7 [P.O.:200; I.V.:2136.2; IV Piggyback:474.4] Out: 5135 [Urine:5135] Weight change: Wt Readings from Last 3 Encounters: 09/29/23 120.4 kg (265 lb 6.9 oz) 09/19/23 132 kg (291 lb) 09/05/23 114.3 kg (252 lb) Vitals: Vitals: 09/29/23 1900 09/29/23 2000 09/29/23201109/29/23 2100 BP: 101/61 (!) 88/43 97/82 100/83 Pulse: (!) 128 (!) 126 (!) 155 (!) 145 Resp: 24 (!) 26 (!) 27 24 Temp: 36.9 C (98.5 F) TempSrc: Axillary SpO2: 97% 94% 96% Weight: Height: Admit Weight Weight: 131.8 kg (290 lb 9.1 oz) Last 3 Weights Last 3 Weight Readings 09/27/23 0447 09/28/23 0500 09/29/23 0400 Weight: 122.9 kg (270 lb 15.1 oz) 121 kg (266 lb 12.1 oz) 120.4 kg (265 lb 6.9 oz) Body mass index is 44.17 kg/m . INTAKE/OUTPUT I/O last 3 completed shifts: In: 2810.7 [P.O.:200; I.V.:2136.2; IV Piggyback:474.4] Out: 5135 [Urine:5135] Intake/Output Summary (Last 24 hours) at 09/30/2023 0023 Last data filed at 09/29/20231999 Gross per 24 hour Intake 1942.79 ml Output 3075 ml Net -1132.21 ml ASSESSMENT Hx of Nonobstructive Coronary Artery Disease Persistent Atrial Fibrillation with Rapid Ventricular Response Hx of Atrial Flutter sp RFA 2020 Acute on Chronic HFrEF 40-45% Acute Hypoxemic Respiratory Failure GIB with Dark Stool PLAN AC on hold given anemia and GIB. EGD/Colonoscopy early next week once INR less than 1.5 Continue lopressor for rate control. Avoid anti-arrhythmics given no AC. MAGDI DAILEY PA-C This note was completed using a voice workforce management manager system. Every effort was made to ensure accuracy. However, inadvertent computerized workforce management manager errors may be present. Magdi Dailey PA-C 09/30/23 0027 [facility] I have reviewed the note authored by the advance practice provider and agree with the assessment and plan. Unable to enter room during Cardiology rounds this evening due to direct patient care with nursing My findings are as follows. Subjective: 68-year-old patient with atrial fibrillation Objective: BP 100/83 Pulse (!) 145 Temp 36.9 C (98.5 F) (Axillary) Resp 24 Ht 165.1 cm (5' 5 ) Wt 120.4 kg (265 lb 6.9 oz) SpO2 96% BMI 44.17 kg/m Prior notes, records, testing reviewed independently by me, available elsewhere in EMR Assessment/Plan: Other persistent atrial fibrillation with RVR History of atrial flutter status post RFA 03/20/2021 Acute on chronic combined systolic and diastolic heart failure Nonischemic cardiomyopathy with an EF of 40-45% Nonobstructive atherosclerotic heart disease of the [place] coronary arteries without angina pectoris Acute respiratory failure with hypoxia Acute kidney injury on chronic kidney disease initiated on hemodialysis 09/21/2023 Anemia of chronic disease Thrombocytopenia with concern for acute on chronic ITP Suspect GI bleed Anticoagulation being held due to anemia and thrombocytopenia EGD and colonoscopy early next week once INR less than 1.5 Volume management per Nephrology Maintain telemetry and optimize electrolytes Metoprolol for rate control Avoiding antiarrhythmics due to inability to anticoagulate Will continue to follow and monitor closely Thank you Jluis Tam DO, FACC, FACOI This note was completed using a voice workforce management manager system. Every effort was made to ensure accuracy. However, inadvertent computerized workforce management manager errors may be present. Images from the original note were not included. Nephrology Daily Progress Note INTERVAL HISTORY/History of present illness: Patient is lying in bed and comfortable. She is more comfortable. She is more awake. PROBLEM LIST: Acute on chronic renal failure stage 4 with serum creatinine of 1.8 mg/dL in 2020, Renal ultrasound from 09/04/2023 showing right kidney 10.8 cm, left kidney 10.9 cm, no hydronephrosis noted. The urinalysis revealed more than 720 RBC and 185 WBC per high-power field, urine protein creatinine ratio was 16.8, FENA was more than 2%, TERRANCE, anti-GBM and vasculitis profile were negative, serum complements were within normal, serum protein electrophoresis unremarkable Shock Acute respiratory failure with bilateral pulmonary infiltrate Atrial fibrillation with history of ablation on chronic anticoagulation Diabetes mellitus type 2 Coronary artery disease, cardiac catheterization in 1999 revealed proximal LAD to mid LAD had 50% stenosis, the left circumflex had 50% proximal to mid lesion, the right coronary artery had 65% ostial to mid lesion Obesity Chronic systolic congestive heart failure Injury to the back Tonsillectomy Myringotomy tube VITAL SIGNS TREND: Vitals: 09/29/23 0600 09/29/23 0700 09/29/23 0800 09/29/23 0900 BP: 105/64 Pulse: 110 110 100 102 Resp: (!) 27 (!) 29 20 (!) 26 Temp: 36.6 C (97.9 F) TempSrc: Oral SpO2: 93% 92% (!) 85% Weight: Height: INTAKE/OUTPUT: Intake/Output Summary (Last 24 hours) at 09/29/2023 1014 Last data filed at 09/29/2023 0600 Gross per 24 hour Intake 867.86 ml Output 2795 ml Net -1927.14 ml No intake/output data recorded. WEIGHT: Wt Readings from Last 3 Encounters: 09/29/23 120.4 kg (265 lb 6.9 oz) 09/19/23 132 kg (291 lb) 09/05/23 114.3 kg (252 lb) bumetanide, 3 mg, intravenous, BID cefTRIAXone (ROCEPHIN) IV, 1,000 mg, intravenous, Q24H darbepoetin stefania (ARANESP) injection, 100 mcg, subcutaneous, Weekly folic acid, 1 mg, oral, Daily insulin lispro, 2-10 Units, subcutaneous, With meals and nightly iron sucrose, 200 mg, intravenous, Every Other Day metOLazone, 10 mg, oral, Daily metoprolol tartrate, 50 mg, oral, BID midodrine, 15 mg, oral, Q6H pantoprazole, 40 mg, oral, QAM AC potassium chloride, 20 mEq, oral, Q6H sennosides-docusate sodium, 2 tablet, oral, Nightly sevelamer, 800 mg, oral, TID with meals sodium chloride, 10 mL, intravenous, Q96H sodium chloride, 10 mL, intravenous, Q96H sodium chloride, 10 mL, intravenous, Q8H AND sodium citrate, 2 mL, intravenous, Q8H AND sodium chloride, 10 mL, intravenous, PRN AND sodium chloride, 10 mL, intravenous, PRN AND sodium citrate, 2 mL, intravenous, PRN sodium chloride, 3 mL, intravenous, Q12H sodium citrate, 2 mL, intravenous, Q96H sodium citrate, 2 mL, intravenous, Q96H dextrose 2.5 % in water, 1,000 mL infusion, 50 mL/hr, Last Rate: 50 mL/hr (09/29/23 014) dextrose 5 % in water, 100 mL/hr sodium chloride 0.9 %, 10 mL/hr, Last Rate: 10 mL/hr (09/28/23 1818) sodium chloride 0.9 %, 10 mL/hr, Last Rate: Stopped (09/25/23 013) sodium chloride 0.9 %, 10 mL/hr, Last Rate: 10 mL/hr (09/29/23 0144) sodium chloride 0.9 %, 20 mL/hr, Last Rate: Stopped (09/28/23 104) sodium chloride 0.9 %, 250 mL sodium chloride 0.9 %, 250 mL PHYSICAL EXAM: Blood pressure 105/64, pulse 102, temperature 36.6 C (97.9 F), temperature source Oral, resp. rate (!) 26, height 165.1 cm (5' 5 ), weight 120.4 kg (265 lb 6.9 oz), SpO2 (!) 85%. Temp: [36.6 C (97.9 F)-37 C (98.6 F)] 36.6 C (97.9 F) Pulse: [97-138] 102 Resp: [14-51] 26 BP: (71-113)/(57-92) 105/64 SpO2: [85 %-99 %] 85 % O2 Device: Nasal cannula O2 Flow Rate (L/min): [2 L/min-3 L/min] 2 L/min General appearance: Awake. Comfortable HEENT: no JVD, no carotid bruits, no lymphadenopathy. Cardiovascular: normal S1-S2 Respiratory: Gastrointestinal: soft, no tenderness, no guarding, positive bowel sounds Musculoskeletal: 1-2+ edema Skin : No Rash. Neuro: Alert and awake LABORATORY EVALUATION: Results from last 7 days Lab Units 09/29/23 0224 09/28/23 0230 09/27/23 0312 09/26/23 1927 09/26/23 0300 09/25/23 0315 SODIUM mmol/L 150* 148* 146 -- 144 142 POTASSIUM mmol/L 3.2* 3.2* 3.7 3.5 3.4* 3.3* CHLORIDE mmol/L 105 104 104 -- 103 102 CO2 mmol/L 32 30 27 -- 24 23 BUN mg/dL 87* 86* 85* -- 78* 68* CREATININE mg/dL 3.03* 3.24* 3.54* -- 3.66* 3.79* CALCIUM mg/dL 8.4* 8.7 8.6 -- 8.1* 8.0* MAGNESIUM mg/dL 1.8 2.0 2.1 -- 2.2 2.1 PHOSPHORUS mg/dL 3.7 5.3* 4.6 -- 5.4* 5.7* Results from last 7 days Lab Units 09/29/2322309/28/23 0420 09/27/2331109/26/23 2350 09/26/23 0300 09/25/23 0315 WBC X10E9/L 9.4 10.9 18.7* -- 11.3* 10.5 HEMOGLOBIN g/dL 7.8* 7.5* 8.1* 7.4* 7.7* 7.9* HEMATOCRIT % 24.2* 23.2* 24.8* 23.0* 23.4* 24.1* PLATELETS X10E9/L 100* 81* 69* -- 36* 37* Results from last 7 days Lab Units 09/29/2322309/28/23 02309/27/2331109/25/23 0315 09/24/23 0428 TOTAL PROTEIN g/dL 6.4 6.1 6.3 6.2 6.0 ALBUMIN g/dL 3.7 3.4 3.7 3.7 3.4 AST U/L 16 18 20 19 23 ALT U/L 11 11 18 12 13 IMPRESSION: Acute kidney injury on chronic kidney disease stage 4 likely due to acute tubular necrosis. Patient is currently hemodialysis dependent initiated on hemodialysis on 09/21/2023. Creatinine is down to 3.2 mg/dL. Nonoliguric. Acute hypoxemic respiratory failure with pulmonary edema and pleural effusion. Shock: Off pressors. Patient remained on midodrine. Acute on chronic systolic congestive heart failure decompensation with LV ejection fraction 40-45% along with mild to moderate mitral regurgitation and moderate tricuspid valve regurgitation patient is currently achieving negative balance as desired overall the patient is -13 L Anemia of chronic kidney disease. Patient is currently on Aranesp and IV iron. Thrombocytopenia. Haptoglobin was not suppressed. Platelets count is better Hyperphosphatemia patient is currently on Renvela . Phosphorus level is better Metabolic encephalopathy. No evidence of hypercarbia on the ABGs from 09/27/2023. Blood culture from 09/27/2023 is pending. Urine culture is pending Gastrointestinal bleed: GI service is following. Patient is currently on PPI Hypokalemia Hypernatremia due to free water deficit Plan : Continue with metolazone. Decrease Bumex to avoid over diuresis Increase D 2.5% to address the ongoing free water loss Keep current dose of midodrine Strict Is&Os Discussed with the patient's son. No need for dialysis. If kidney function continues to improve we will remove temporary hemodialysis catheter in the next 24-48 hours Increase scheduled potassium chloride Ulisses Silver M.D. [facility] Thank you for your consultation and allowing us to participate in the care of Harris Castrejon and please do not hesitate to call us with any questions at: Office: [phone] Office Answering Service: [phone] Please feel free to contact me through [facility] Secure chat during the daytime hours, if no response after 5 minutes then call the answering service. This note was created with the assistance of a speech-recognition program. Although the intention is to generate a document that actually reflects the content of the visit, no guarantees can be provided that every mistake has been identified and corrected by editing. Images from the original note were not included. CRITICAL CARE PROGRESS NOTE Name: Harris Castrejon Age: 68 y.o. Date: 09/29/23 Length of Stay 9 day(s) Assessment & Plan Acute hypoxic respiratory insufficiency, tolerating nasal cannula Acute metabolic encephalopathy with agitation, improved BRANDEE on CKD stage 4 on iHD Persistent atrial fibrillation with RVR, improved Acute systolic congestive heart failure with EF 40-45%, [id number] MR and moderate TR GI bleed with maroon stools, likely 2/2 hemorrhoidal bleeding, GI following UTI Supratherapeutic INR, improved Anemia of chronic disease Thrombocytopenia, etiology multifactorial, Hematology following - improving Morbid obesity, BMI 44 Plan Supplemental oxygen to supplemental oxygen to maintain SpO2 > 90% - on 4L NC Midodrine continued for blood pressure support Rocephin for UTI Diuresis and HD per nephrology, appreciate input Strict I+O Cardiology following for atrial fibrillation, continue Lopressor GI w/ tentative niurka for evaluation w/ EGD/colonoscopy on Saturday if INR < 1.5 Follow up w/ hematology regarding thrombocytopenia DVT Prophylaxis- EPC GI prophylaxis- Protonix Nutrition- Regular, carb controlled diet Electrolyte replacement scale per ICU protocol Plan discussed with bedside nurse P[facility] to assume care tomorrow morning Lengthy discussion with patient and . Patient continually stating that she wants to go home. She believes that she is ready and that home health will be able to give her her medications and take care of her. She states that doctors who have previously been into see her have told her she can leave. I explained to them that she still has several issues that need addressed including continued diuretic management, prior GI bleed workup, and PT/OT evaluation. Her at bedside is stating that this entire hospitalization is just a continual money grab by [employer]. He raised his voice and began arguing about a previous hospitalizations billing charges. Salbador Howell, D[employer] Subjective Patient states that she feels fine and has no current issues. She states that she feels like she is ready to go home. She denies any chest pain, fever, chills, nausea, vomiting, shortness a breath. Hospital Problem: Principal Problem: Acute kidney injury (CMS-HCC) OBJECTIVE: Lungs: effort normal breath sounds normal no respiratory distress no wheezes Abdomen: soft no distension bowel sounds normal Neuro: alert Vital Signs Temp: [36.6 C (97.9 F)-37 C (98.6 F)] 36.6 C (97.9 F) Pulse: [97-138] 102 Resp: [14-51] 26 BP: (71-113)/(57-92) 105/64 SpO2: [85 %-99 %] 85 % O2 Device: Nasal cannula O2 Flow Rate (L/min): [2 L/min-3 L/min] 2 L/min O2 Device: Nasal cannula Physical Exam Constitutional She is oriented to person, place, and time. She appears well-developed. HENT Head Normocephalic. Cardiovascular: An irregularly irregular rhythm present. Pulses: normal pulses Pulmonary/Chest: Effort normal and breath sounds normal. She has no wheezes. No respiratory distress. Abdominal: Bowel sounds are normal. She exhibits no distension. Soft. There is no abdominal tenderness. Neurological She is alert and oriented to person, place, and time. Skin: Skin is warm and dry. Psychiatric: She is agitated. I/O last 3 completed shifts: In: 1443.3 [P.O.:380; I.V.:700.6; IV Piggyback:362.7] Out: 5620 [Urine:5620] Results from last 3 days Lab Units 09/29/2322309/28/2322909/27/2331109/26/23 1927 BUN mg/dL 87* 86* 85* -- CREATININE mg/dL 3.03* 3.24* 3.54* -- POTASSIUM mmol/L 3.2* 3.2* 3.7 3.5 CO2 mmol/L 32 30 27 -- CHLORIDE mmol/L 105 104 104 -- MAGNESIUM mg/dL 1.8 2.0 2.1 -- AST U/L 16 18 20 -- ALT U/L 11 11 18 -- ALK PHOS U/L 76 78 98 -- Results from last 3 days Lab Units 09/29/2322309/28/23 0230 09/27/23311 INR 2.1* 2.0* 2.3* PROTIME sec 23.5* 22.9* 25.5* Results from last 3 days Lab Units 09/29/2322309/28/23 0420 09/27/23 0312 09/26/23 2350 WBC X10E9/L 9.4 10.9 18.7* -- HEMOGLOBIN g/dL 7.8* 7.5* 8.1* 7.4* HEMATOCRIT % 24.2* 23.2* 24.8* 23.0* PLATELETS X10E9/L 100* 81* 69* -- MCV fL 96 96 95 -- MCH pg 30.9 31.1 30.8 -- MCHC g/dL 32.1 32.5 32.5 -- RDW % 20.4* 19.5* 19.8* -- EOS ABS AUTO X10E9/L 0.1 0.1 0.2 -- Microbiology Results Procedure Component Value Units Date/Time Blood culture #2 [[id number]] (Abnormal) Collected: 09/27/23537 Specimen: Blood Updated: 09/28/23336 Culture GRAM POSITIVE COCCI IN CLUSTERS CULTURE IN PROGRESS Staphylococcus species detected by PCR (not S. aureus, S.epidermidis, or S.lugdunensis). Blood culture #1 [[id number]] Collected: 09/27/23430 Specimen: Blood Updated: 09/29/23 0546 Specimen Notes ONLY AEROBIC BOTTLE RECEIVED, SUBOPTIMAL VOLUME OF BLOOD COLLECTED, RESULTS MAY BE AFFECTED Culture NO GROWTH 2 DAYS Urine culture [[id number]] Collected: 09/27/23 0405 Specimen: Urine Updated: 09/28/23 0701 Specimen Notes URINE RECEIVED WITHOUT PRESERVATIVE Culture NO GROWTH AT <1000 CFU/mL Urine culture [[id number]] Collected: 09/23/23 2110 Specimen: Urine Updated: 09/24/23 1633 Culture NO GROWTH AT <1000 CFU/mL Glucose Results from last 7 days Lab Units 09/29/23 0754 09/29/23 0224 09/28/23 2213 09/28/23 1730 09/28/23 1126 09/28/23 0827 09/28/23 0230 09/27/23 2152 09/27/23 1638 09/27/23 1248 09/27/23 0855 09/27/23 0312 BEDSIDE GLUCOSE mg/dL 160* -- 201* 234* 179* 185* -- 142* 132* 125* 171* -- GLUCOSE mg/dL -- 167* -- -- -- -- 129* -- -- -- -- 142* Microbiology Results Procedure Component Value Units Date/Time Blood culture #2 [[id number]] (Abnormal) Collected: 09/27/23537 Specimen: Blood Updated: 09/28/23336 Culture GRAM POSITIVE COCCI IN CLUSTERS CULTURE IN PROGRESS Staphylococcus species detected by PCR (not S. aureus, S.epidermidis, or S.lugdunensis). Blood culture #1 [[id number]] Collected: 12/29/23 0431 Specimen: Blood Updated: 09/29/23 0546 Specimen Notes ONLY AEROBIC BOTTLE RECEIVED, SUBOPTIMAL VOLUME OF BLOOD COLLECTED, RESULTS MAY BE AFFECTED Culture NO GROWTH 2 DAYS Urine culture [[id number]] Collected: 09/27/23 0405 Specimen: Urine Updated: 09/28/23 0701 Specimen Notes URINE RECEIVED WITHOUT PRESERVATIVE Culture NO GROWTH AT <1000 CFU/mL Urine culture [[id number]] Collected: 09/23/23 2110 Specimen: Urine Updated: 09/24/23 1633 Culture NO GROWTH AT <1000 CFU/mL Ventilator Settings Vent Mode: S/T FiO2 (%): 40 % Resp Rate (Set): 8 Insp Time (sec): 1 sec Insp Rise Time (%): 3 % IPAP: 14 EPAP: 6 Invasive Hemodynamic [place] Lines/Drains Hemodialysis Catheter Triple 09/21/23 Right Internal Jugular (Active) Precautions Standard precautions;Hand hygiene;Gloves 09/29/23399 Lumen 1 Blue 09/29/230 Lumen 1 Status Other (Comment) 09/29/23399 Lumen [address] 09/29/23399 Lumen 2 Red 09/29/23399 Lumen 2 Status Other (Comment) 09/29/23399 Lumen [address] 09/29/23399 Lumen 3 Pigtail 09/29/23399 Lumen 3 Status Infusing;Alcohol sponge cap maintained;Connections checked/tightened 09/29/23399 Lumen 3 Pigtail Needleless Cap Change Completed 09/29/23199 Lumen 3 Pigtail Needleless Cap Change Due 10/03/23 09/29/23 020 HD Status Citrate Locked 09/29/23399 Site Assessment Clean;Dry;Intact 09/29/23399 Site Condition No complications 09/29/23399 Dressing Type Occlusive;Transparent with CHG gel 09/29/23399 Dressing Status Clean;Dry;Intact 09/29/23399 Dressing Intervention Dressing changed 09/26/23 1729 Line Necessity Dialysis 09/29/23399 Line Necessity Reviewed With Nephro 09/29/23399 Patient tolerance of dressing change Tolerated well 09/29/23399 Central Line Dressing Change Due (Non-Gauze) 10/03/23 09/26/23 1600 Peripheral IV 09/20/23 Right Forearm (Active) Line Status Infusing;Alcohol sponge cap maintained;Connections checked/tightened 09/29/23 040 Site Assessment Clean;Dry;Intact 09/29/23 0400 Dressing Type Occlusive;Transparent 09/29/23 0400 Dressing Status Clean;Dry;Intact 09/29/23 0400 Dressing Intervention Dressing changed 09/27/23 1600 Dressing Change Due (Non-Gauze) 10/04/23 09/27/23 1600 Peripheral IV 09/20/23 Anterior;Left Forearm (Active) Line Status Saline locked;Alcohol sponge cap maintained;Connections checked/tightened 09/29/23 040 Site Assessment Clean;Dry;Intact 09/29/23 040 Dressing Type Occlusive;Transparent 09/29/23 040 Dressing Status Clean;Dry;Intact 09/29/23 0400 Dressing Intervention Initial dressing 09/27/23 0200 Dressing Change Due (Non-Gauze) 09/27/23 09/20/23 1945 Urinary Catheter 09/20/23 (Active) Catheter Status Patent 09/29/23 040 Site Assessment Clean;Skin intact 09/29/23 040 Collection Container Standard drainage bag/container 09/29/23 040 Securement Method Securing device (Describe);Tube rolon;Secured left 09/29/23 040 Tamper Evident Seal Intact Yes 09/29/23399 Reason for Continuing Strict I&O in critically ill patient 09/29/23 040 Urine Color Yellow/straw 09/29/23 040 Urine Appearance Hazy;Sediment 09/29/23 0400 Output (mL) 225 mL 09/29/23 0600 I/O last 3 completed shifts: In: 1443.3 [P.O.:380; I.V.:700.6; IV Piggyback:362.7] Out: 5620 [Urine:5620] No intake/output data recorded. bumetanide, 3 mg, intravenous, BID cefTRIAXone (ROCEPHIN) IV, 1,000 mg, intravenous, Q24H darbepoetin stefania (ARANESP) injection, 100 mcg, subcutaneous, Weekly folic acid, 1 mg, oral, Daily insulin lispro, 2-10 Units, subcutaneous, With meals and nightly iron sucrose, 200 mg, intravenous, Every Other Day metOLazone, 10 mg, oral, Daily metoprolol tartrate, 50 mg, oral, BID midodrine, 15 mg, oral, Q6H pantoprazole, 40 mg, oral, QAM AC potassium chloride, 20 mEq, oral, Q6H sennosides-docusate sodium, 2 tablet, oral, Nightly sevelamer, 800 mg, oral, TID with meals sodium chloride, 10 mL, intravenous, Q96H sodium chloride, 10 mL, intravenous, Q96H sodium chloride, 10 mL, intravenous, Q8H AND sodium citrate, 2 mL, intravenous, Q8H AND sodium chloride, 10 mL, intravenous, PRN AND sodium chloride, 10 mL, intravenous, PRN AND sodium citrate, 2 mL, intravenous, PRN sodium chloride, 3 mL, intravenous, Q12H sodium citrate, 2 mL, intravenous, Q96H sodium citrate, 2 mL, intravenous, Q96H dextrose 2.5 % in water, 1,000 mL infusion, 50 mL/hr, Last Rate: 50 mL/hr (09/29/23 0142) dextrose 5 % in water, 100 mL/hr sodium chloride 0.9 %, 10 mL/hr, Last Rate: 10 mL/hr (09/28/23 1818) sodium chloride 0.9 %, 10 mL/hr, Last Rate: Stopped (09/25/23 0130) sodium chloride 0.9 %, 10 mL/hr, Last Rate: 10 mL/hr (09/29/23 0144) sodium chloride 0.9 %, 20 mL/hr, Last Rate: Stopped (09/28/23 1045) sodium chloride 0.9 %, 250 mL sodium chloride 0.9 %, 250 mL Salbador Howell APRN-ALINA [] This patient, with a critical illness, requires constant monitoring and titration of care by a Critical Care Web Site Developer. Failure to do so may result in further organ system failure, imminent deterioration, or . NICOLAS Webb 09/29/23 1037 [facility] Gastroenterology/Hepatology Progress Note IDENTIFYING DATA PATIENT: Harris Castrejon ADMIT DATE: 09/20/2023 TIME OF EVALUATION: 09/29/2023 6:03 AM HOSPITAL STAY: LOS: 9 days SUBJECTIVE/INTERVAL HISTORY Harris Castrejon's events from the last 12-24 hours were reviewed. Discussed with RN. No further episodes of hematochezia. She does have dark stool on oral iron. Her mental status is awake alert oriented x3. OBJECTIVE MEDICATIONS SCHEDULED: bumetanide, 3 mg, intravenous, BID cefTRIAXone (ROCEPHIN) IV, 1,000 mg, intravenous, Q24H darbepoetin stefania (ARANESP) injection, 100 mcg, subcutaneous, Weekly folic acid, 1 mg, oral, Daily insulin lispro, 2-10 Units, subcutaneous, With meals and nightly iron sucrose, 200 mg, intravenous, Every Other Day metOLazone, 10 mg, oral, Daily metoprolol tartrate, 50 mg, oral, BID midodrine, 15 mg, oral, Q6H pantoprazole, 40 mg, oral, QAM AC potassium chloride, 20 mEq, oral, Q6H sennosides-docusate sodium, 2 tablet, oral, Nightly sevelamer, 800 mg, oral, TID with meals sodium chloride, 10 mL, intravenous, Q96H sodium chloride, 10 mL, intravenous, Q96H sodium chloride, 10 mL, intravenous, Q8H AND sodium citrate, 2 mL, intravenous, Q8H AND sodium chloride, 10 mL, intravenous, PRN AND sodium chloride, 10 mL, intravenous, PRN AND sodium citrate, 2 mL, intravenous, PRN sodium chloride, 3 mL, intravenous, Q12H sodium citrate, 2 mL, intravenous, Q96H sodium citrate, 2 mL, intravenous, Q96H PRNs: calcium gluconate, 1,000 mg, PRN Or calcium gluconate, 2,000 mg, PRN Or calcium gluconate, 3,000 mg, PRN dextrose, 15 g, PRN dextrose 5 % in water, 100 mL/hr, Continuous PRN dextrose 50 % in water (D50W), 25 g, Once PRN And dextrose 50 % in water (D50W), 50 g, Once PRN dextrose 50 % in water (D50W), 25 mL, PRN glucagon (human recombinant), 1 mg, PRN magnesium sulfate, 2,000 mg, PRN Or magnesium sulfate, 4,000 mg, PRN metoprolol (LOPRESSOR) IV, 5 mg, Q6H PRN midodrine, 10 mg, PRN sodium chloride, 10 mL, PRN sodium chloride, 10 mL, PRN sodium chloride, 10 mL, PRN sodium chloride, 10 mL, PRN sodium chloride, 10 mL, PRN And sodium chloride, 10 mL, PRN And sodium citrate, 2 mL, PRN sodium chloride 0.9 %, 10 mL/hr, Continuous PRN sodium chloride 0.9 %, 10 mL/hr, Continuous PRN sodium chloride 0.9 %, 10 mL/hr, Continuous PRN sodium chloride 0.9 %, 20 mL/hr, Continuous PRN sodium citrate, 2 mL, PRN sodium citrate, 2 mL, PRN ALLERGIES: No Known Allergies Physical VITALS: BP 101/63 Pulse 114 Temp 36.9 C (98.4 F) (Oral) Resp (!) 35 Ht 165.1 cm (5' 5 ) Wt 121 kg (266 lb 12.1 oz) SpO2 92% BMI 44.39 kg/m Physical Exam LABS AND IMAGING CBC: Lab Results Component Value Date WBC 9.4 09/29/2023 HGB 7.8 (L) 09/29/2023 HCT 24.2 (L) 09/29/2023 MCV 96 09/29/2023 RDW 20.4 (H) 09/29/2023 PLT 100 (L) 09/29/2023 CMP: Lab Results Component Value Date K 3.2 (L) 09/29/2023 CL 105 09/29/2023 CO2 32 09/29/2023 BUN 87 (H) 09/29/2023 GLU 167 (H) 09/29/2023 GLU 201 (H) 09/28/2023 Latest Reference Range & Units 09/26/23 03:00 09/26/23 23:50 09/27/23 03:12 09/28/23 04:20 09/29/23 02:24 Hemoglobin 11.7 - 15.5 g/dL 7.7 (L) 7.4 (L) 8.1 (L) 7.5 (L) 7.8 (L) Hematocrit 35 - 47 % 23.4 (L) 23.0 (L) 24.8 (L) 23.2 (L) 24.2 (L) (L): Data is abnormally low IMAGING: ASSESSMENT AND PLAN Harris Castrejon is a 68 y.o. female with PMH of Afib on Coumadin, hypertension, back injury, obesity and congestive heart failure, admitted for acute kidney injury. We are asked to see her for gastrointestinal bleeding. Hematochezia -rectal bleeding consistent with hemorrhoidal secondary to acute thrombocytopenia in the face of severe supratherapeutic INR of 16, now 2.1 -Plts now 100 - no active signs of bleeding - Hgb is stable 2. Dysphagia - prior to admission 3. 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 Normocytic Anemia - Hgb stable - Iron and Aranesp per Nephrology -Folate deficiency, on oral folate PLAN: Supportive care, primary to address INR. Tentative plan for evaluation with EGD/colonoscopy on Saturday if INR<1.5 D/w GI attending Nayana Murrieta PA-C [facility] [place] [address] CHALINO Line [phone] PH: [phone] KAVYA Faulkner 09/29/23 0940 Images from the original note were not included. [facility] [address] [place] [address] PROGRESS NOTE Harris Castrejon it is resting comfortably in bed breathing comfortably on nasal cannula oxygen. Does not have any acute complaints currently. SUBJECTIVE Allergies: No Known Allergies CURRENT MEDICATIONS bumetanide, 3 mg, intravenous, BID cefTRIAXone (ROCEPHIN) IV, 1,000 mg, intravenous, Q24H darbepoetin stefania (ARANESP) injection, 100 mcg, subcutaneous, Weekly folic acid, 1 mg, oral, Daily insulin lispro, 2-10 Units, subcutaneous, With meals and nightly iron sucrose, 200 mg, intravenous, Every Other Day metOLazone, 10 mg, oral, Daily metoprolol tartrate, 50 mg, oral, BID midodrine, 15 mg, oral, Q6H pantoprazole, 40 mg, oral, QAM AC potassium chloride, 20 mEq, oral, Q6H sennosides-docusate sodium, 2 tablet, oral, Nightly sevelamer, 800 mg, oral, TID with meals sodium chloride, 10 mL, intravenous, Q96H sodium chloride, 10 mL, intravenous, Q96H sodium chloride, 10 mL, intravenous, Q8H AND sodium citrate, 2 mL, intravenous, Q8H AND sodium chloride, 10 mL, intravenous, PRN AND sodium chloride, 10 mL, intravenous, PRN AND sodium citrate, 2 mL, intravenous, PRN sodium chloride, 3 mL, intravenous, Q12H sodium citrate, 2 mL, intravenous, Q96H sodium citrate, 2 mL, intravenous, Q96H CONTINUOUS INFUSIONS dextrose 2.5 % in water, 1,000 mL infusion, 50 mL/hr, Last Rate: 50 mL/hr (09/28/23 1151) dextrose 5 % in water, 100 mL/hr sodium chloride 0.9 %, 10 mL/hr, Last Rate: 10 mL/hr (09/28/23 1818) sodium chloride 0.9 %, 10 mL/hr, Last Rate: Stopped (09/25/23 0130) sodium chloride 0.9 %, 10 mL/hr, Last Rate: 10 mL/hr (09/28/23 1045) sodium chloride 0.9 %, 20 mL/hr, Last Rate: Stopped (09/28/23 1045) sodium chloride 0.9 %, 250 mL sodium chloride 0.9 %, 250 mL Review of Systems: Cardiovascular: No chest pain, dyspnea on exertion, palpitations or loss of consciousness. No cough, hemoptysis, pleuritic pain, or phlebitis. Respiratory: No cough or wheezing, no sputum production, no hematemesis. Neurological: No headache, diplopia, change in muscle strength, numbness or tingling. No change in gait, balance, coordination, mood, affect, memory, mentation, behavior. Hematologic/Lymphatic: No abnormal bruising or bleeding, blood clots or swollen lymph nodes. OBJECTIVE CBC: Results from last 7 days Lab Units 09/28/23 0420 09/27/23 03109/26/23 2350 09/26/23 0300 WBC X10E9/L 10.9 18.7* -- 11.3* HEMOGLOBIN g/dL 7.5* 8.1* 7.4* 7.7* HEMATOCRIT % 23.2* 24.8* 23.0* 23.4* MCV fL 96 95 -- 93 PLATELETS X10E9/L 81* 69* -- 36* BMP: Results from last 7 days Lab Units 09/28/23 02309/27/2331109/26/23192609/26/23 0300 SODIUM mmol/L 148* 146 -- 144 POTASSIUM mmol/L 3.2* 3.7 3.5 3.4* CHLORIDE mmol/L 104 104 -- 103 CO2 mmol/L 30 27 -- 24 BUN mg/dL 86* 85* -- 78* CREATININE mg/dL 3.24* 3.54* -- 3.66* CALCIUM mg/dL 8.7 8.6 -- 8.1* PHOSPHORUS mg/dL 5.3* 4.6 -- 5.4* MAGNESIUM mg/dL 2.0 2.1 -- 2.2 PT/INR: Results from last 7 days Lab Units 09/28/23 02309/27/2331109/26/23 0300 PROTIME sec 22.9* 25.5* 24.3* INR 2.0* 2.3* 2.1* APTT: MAG: Results from last 7 days Lab Units 09/28/23 02309/27/2331109/26/23 0300 MAGNESIUM mg/dL 2.0 2.1 2.2 D Dimer: Troponin I ProBNP Lipid Panel: Lab Results Component Value Date CHOL 127 (L) 09/13/2021 TRIG 159 (H) 09/13/2021 HDL 38 (L) 09/13/2021 Liver Panel: No results found for: ALB HgA1C: Lab Results Component Value Date HGBA1C 10.1 (H) 02/08/2021 ABG: Lab Results Component Value Date pH 7.431 09/27/2023 PCO2 37.8 09/27/2023 PO2 73 (L) 09/27/2023 Base,Excess 1.0 09/27/2023 Base,Deficit 3.0 (H) 09/23/2023 Portable HCO3 25.1 09/27/2023 SPO2 100 09/27/2023 CV TESTING HISTORY: ECHO: Echo complete W/ contrast Result Date: 09/04/2023 Left Ventricle: There is mild concentric increased wall thickness/hypertrophy. Systolic function is mildly to moderately decreased with an ejection fraction of 40-45%. Mitral Valve: There is mild to moderate regurgitation with a centrally directed and a posteriorly directed jet. There is no evidence of mitral valve stenosis. Tricuspid Valve: There is moderate regurgitation. The tricuspid valve regurgitation jet is eccentric. There is no evidence of tricuspid valve stenosis. STRESS: No results found. HOLTER: No results found. CARDIAC CATH: No results found. CAROTID: No results found. CXR: X-ray chest 1 view Result Date: 09/28/2023 Clinical History: Congestion. Edema. Portable Upright chest: 09/28/2023 Comparison: 09/27/2023 Findings: A single portable view of the chest was obtained. Right IJ catheter is in mid trachea. Cardiac silhouette is prominent with stable mediastinal contours. This vascular distention and indistinct appearance centrally with persistent perihilar and basilar infiltrates. No pneumothorax or large pleural effusion is present. IMPRESSION: Vascular congestion with persistent basilar infiltrates and pleural effusions. Finalized by Jamaal Cormier MD on 09/28/2023 7:29 AM X-ray chest 1 view Result Date: 09/27/2023 Single view chest History:sob Difficulty breathing, shortness of breath Comparison: 09/22/2023 Findings: Single portable view of the chest. Stable cardia mediastinal silhouette. Right jugular catheter stable. Mild vascular congestion and edema and small pleural effusions, stable. Impression: No significant interval change. Finalized by Krystal Anderson MD on 09/27/2023 10:45 AM X-ray chest 1 view Result Date: 09/22/2023 Procedure: Chest x-ray performed Number of views:1 History:Shortness of breath Comparison:09/21/2023 Impression: 1. Tubes and lines are stable. Congestion and effusions are present. These are slightly increased. The cardiac silhouette remains enlarged. There is no pneumothorax. Finalized by Jose Tinoco MD on 09/22/2023 1:32 PM X-ray chest 1 view Result Date: 09/21/2023 HISTORY AND/OR TECH NOTES line placement PROCEDURE AP chest at 10:32 AM COMPARISON September 20 FINDINGS Right central line placement to the mid SVC No visible pneumothorax There is cardiomediastinal prominence with increased perihilar congestion and granular opacity There is increase in confluent opacity in left greater than right lung base Probable small effusions IMPRESSION: Right central line placement mid SVC without visible pneumothorax Worsening congestive change and probable edema and atelectasis left worse than right with trace effusions Suggest follow-up imaging to document clearing and normalization when appropriate ----- Finalized by Charlie Mendoza MD on 09/21/2023 10:45 AM X-ray chest 1 view Result Date: 09/20/2023 Single view chest XR CHEST 1 VW History: weakness Comparison: September 03 Impression: * No consolidation or pleural fluid. No acute findings. Moderate cardiomegaly Finalized by Watson Ceja MD on 09/20/2023 1:42 AM X-ray chest 1 view Result Date: 09/03/2023 XR CHEST 1 VW CLINICAL INFORMATION: Shortness of breath, evaluate for fluid overload. COMPARISON: 02/08/21. IMPRESSION: * Mild vascular congestion with midlung and basilar atelectatic changes. Trace effusions. Mild cardiomegaly. Finalized by Tian Jones MD on 09/03/2023 2:25 PM TELEMETRY: Atrial fibrillation with recent the 120s PHYSICAL EXAM Admission Weight: Weight: 131.8 kg (290 lb 9.1 oz) I/O last 3 completed shifts: In: 1611.5 [P.O.:180; I.V.:816.5; IV Piggyback:615] Out: 6325 [Urine:6325] Weight change: Wt Readings from Last 3 Encounters: 09/28/23 121 kg (266 lb 12.1 oz) 09/19/23 132 kg (291 lb) 09/05/23 114.3 kg (252 lb) Vitals: Vitals: 09/28/23 2000 09/28/23 2100 09/28/23 2200 09/28/23 2300 BP: 93/73 99/61 Pulse: (!) 123 110 121 102 Resp: 15 (!) 26 15 20 Temp: 36.9 C (98.4 F) TempSrc: Oral SpO2: 93% 93% 95% 96% Weight: Height: Admit Weight Weight: 131.8 kg (290 lb 9.1 oz) Last 3 Weights Last 3 Weight Readings 09/27/23 0200 09/27/23 0447 09/28/23 0500 Weight: 122.9 kg (270 lb 15.1 oz) 122.9 kg (270 lb 15.1 oz) 121 kg (266 lb 12.1 oz) Body mass index is 44.39 kg/m . INTAKE/OUTPUT I/O last 3 completed shifts: In: 1611.5 [P.O.:180; I.V.:816.5; IV Piggyback:615] Out: 6325 [Urine:6325] Intake/Output Summary (Last 24 hours) at 09/29/2023 0040 Last data filed at 09/28/2023 1900 Gross per 24 hour Intake 1243.3 ml Output 2950 ml Net -1706.7 ml General appearance: Alert oriented and cooperative, In no acute distress Skin: Warm and dry to touch Neck: No JVD, no carotid bruit, neck supple, trachea midline Lungs: Clear to ausculation bilaterally, no use of accessory muscles Heart:: Irregularly irregular with normal S1 and S2, no murmurs and no gallops. Extremities: 2++ edema Neurologic: Oriented to time, person and place, affect appropriate, no focal/major motor or sensory defects noted Psychiatric: Appropriate mood, memory and judgment ASSESSMENT Persistent atrial fibrillation with RVR, anticoagulation currently on hold given acute anemia/thrombocytopenia, was on Coumadin at home History of atrial flutter status post RFA 03/20/2021 Acute on Chronic systolic heart failure with EF of 40-45% per TTE 09/04/2023 Nonobstructive CAD per [facility] Acute hypoxemic respiratory failure secondary to #2 BRANDEE on CKD initiated on hemodialysis 09/21/2023, has been held with good response to diuresis Anemia of chronic disease, hemoglobin increased to 8.1 Thrombocytopenia, hematology following, concern for ITP GI bleed w/ maroon stools, GI following Dysphagia Hypokalemia PLAN Will give 1 more dose of IV digoxin at 125 mcg today for rate control. If her pressures remain stable could consider increasing Lopressor to 75 mg twice daily tomorrow. She remains on midodrine. Anticoagulation held secondary to anemia/thrombocytopenia. Volume management per Nephrology. Is on IV Bumex with metolazone Replace magnesium to maintain greater than 4. AMRITA LIRA PA-C This note was completed using a voice workforce management manager system. Every effort was made to ensure accuracy. However, inadvertent computerized workforce management manager errors may be present. Amrita Lira PA-C 09/29/23 0044 [facility] I have personally performed a face to face diagnostic evaluation on this patient. I have reviewed the note authored by the advance practice provider/resident/fellow and agree with the assessment and plan. My findings are as follows. Subjective: 68 year old patient seen and examined by me at the request of the admitting team and with patient's permission; medical records reviewed. Discussed with ICU nurse no new changes from a CV standpoint Objective: BP 99/61 Pulse 102 Temp 36.9 C (98.4 F) (Oral) Resp 20 Ht 165.1 cm (5' 5 ) Wt 121 kg (266 lb 12.1 oz) SpO2 96% BMI 44.39 kg/m General appearance: Mental status improving, in no acute distress Lungs: Clear to ausculation bilaterally, no use of accessory muscles. 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[place] coronary arteries without angina pectoris Acute respiratory failure with hypoxia Acute kidney injury on chronic kidney disease initiated on hemodialysis 09/21/2023 Anemia of chronic disease Thrombocytopenia with concern for acute on chronic ITP Suspect GI bleed Atrial fibrillation much improved Digoxin 1 more dose IV at 125 mcg Anticoagulation being held due to anemia and thrombocytopenia Volume management per Nephrology Maintain telemetry and optimize electrolytes Will continue to follow and monitor closely Thank you Jluis Tam DO, FACC, FACOI This note was completed using a voice workforce management manager system. Every effort was made to ensure accuracy. However, inadvertent computerized workforce management manager errors may be present. Images from the original note were not included. CRITICAL CARE PROGRESS NOTE: Length of Stay 8 day(s) Assessment Acute hypoxic respiratory insufficiency, tolerating 4L NC Acute metabolic encephalopathy with agitation, resolved Acute kidney injury on CKD stage 4 on iHD Persistent atrial fibrillation with RVR, improved Anticoagulation currently held given acute anemia/thrombocytopenia Acute on chronic systolic congestive heart failure with EF 40-45 %, mild to moderate MR and moderate TR Hypotension, resolved - off vasopressor support GI bleed w/ maroon stools, likely 2/2 hemorrhoidal bleeding, GI following Urinary tract infection Supra therapeutic INR, improved Anemia of chronic disease Thrombocytopenia, etiology multifactorial, hematology following - improving Hypothermia on admission, resolved Morbid Obesity, BMI 49.96 Plan Supplemental oxygen to maintain SpO2 > 90% - on 4L NC Remains off vasopressor support at this time Continue Midodrine as ordered for BP support Continue Rocephin for UTI Diuresis and HD per Nephrology, appreciate input Cardiology following for atrial fibrillation - continue Lopressor Anticoagulation held due to anemia and thrombocytopenia. GI following for GI bleed - will need eventual endoscopic workup, timing to be determined Note hematology signed off - will need outpatient follow-up regarding thrombocytopenia Daily labs Supportive care Nutrition: Regular, carb controlled diet. Fluid restriction 1500 mL Activity: As able DVT prophylaxis: EPCs GI prophylaxis: Protonix Glycemic control: Sliding scale insulin Replace electrolytes per protocol CODE STATUS: Full DISPOSITION: Stable to transfer out of ICU *Most recent imaging / lab studies independently reviewed. *Please also note additional orders Plan of care discussed with attending MD and bedside RN Anel Lara PA-C [facility] Please feel free to contact me via Patient Touch Subjective No acute events overnight. Remains off vasopressor support. No acute distress noted. ALLERGIES: No Known Allergies PAST MEDICAL HISTORY: Past Medical History: Diagnosis Date Arrhythmia Hypertension Injury of back Disc L4 and L5 Obesity Systolic and diastolic CHF, acute ([facility]) 09/03/2023 Visual impairment PAST SURGERY HISTORY: Past Surgical History: Procedure Laterality Date Cardiac catheterization 02/16/2021 Performed by Kelli Su MD at [facility] Caval Tricuspid Isthmus RFA, Carto w/ICE N/A 03/21/2021 Performed by Lurdes Weinberg MD at [facility] HR (EP) Coronary angiogram and left ventricular gram/pressure N/A 02/16/2021 Performed by Kelli Su MD at [facility] CATH LABS Coronary fractional flow reserve N/A 02/16/2021 Performed by Kelli Su MD at [facility] CATH LABS Intravascular pressure measurement first vessel each additional vessel (fractional flow reserve) N/A 02/16/2021 Performed by Kelli Su MD at [facility] C[facility] CATH LABS MYRINGOTOMY W/ TUBES TONSILLECTOMY Vital Signs Temp: [36.7 C (98 F)-37 C (98.6 F)] 36.9 C (98.4 F) Pulse: [96-131] 131 Resp: [14-36] 26 BP: (85-130)/(48-102) 92/54 FiO2 (%): [40 %] 40 % SpO2: [81 %-100 %] 99 % O2 Device: Nasal cannula O2 Flow Rate (L/min): [4 L/min] 4 L/min O2 Device: Nasal cannula Ventilalor Settings Vent Mode: S/T FiO2 (%): 40 % Resp Rate (Set): 8 Insp Time (sec): 1 sec Insp Rise Time (%): 3 % IPAP: 14 EPAP: 6 Invasive Hemodynamic [place] Lines/Drains Hemodialysis Catheter Triple 09/21/23 Right Internal Jugular (Active) Precautions Standard precautions;Hand hygiene;Gloves 09/28/23 0800 Lumen 1 Blue 09/28/23 0800 Lumen 1 Status Other (Comment) 09/28/23 0800 Lumen [address] 09/28/23 0800 Lumen 2 Red 09/28/23 0800 Lumen 2 Status Other (Comment) 09/28/23 08 Lumen [address] 09/28/23 08 Lumen 3 Pigtail 09/28/23 08 Lumen 3 Status Blood return noted;Flushed;Infusing;Alcohol sponge cap changed;Connections checked/tightened 09/28/23 08 Lumen 3 Pigtail Needleless Cap Change Completed 09/25/23 013 Lumen 3 Pigtail Needleless Cap Change Due 09/29/23 09/25/23 013 HD Status Citrate Locked 09/28/23 08 Site Assessment Clean;Dry;Intact 09/28/23 08 Site Condition No complications 09/28/23 08 Dressing Type Occlusive;Transparent with CHG gel 09/28/23 08 Dressing Status Clean;Dry;Intact 09/28/23799 Dressing Intervention Dressing changed 09/26/23 1729 Line Necessity Dialysis 09/28/23799 Line Necessity Reviewed With Nephrology 09/28/23 08 Patient tolerance of dressing change Tolerated well 09/28/23 08 Central Line Dressing Change Due (Non-Gauze) 10/03/23 09/26/23 1600 Peripheral IV 09/20/23 Right Forearm (Active) Line Status No blood return;Saline locked;Flushed;Infusing;Alcohol sponge cap changed;Connections checked/tightened 09/28/23799 Site Assessment Clean;Dry;Intact 09/28/23799 Dressing Type Occlusive;Transparent 09/28/23799 Dressing Status Clean;Dry;Intact 09/28/23799 Dressing Intervention Dressing changed 09/27/23 1600 Dressing Change Due (Non-Gauze) 10/04/23 09/27/23 1600 Peripheral IV 09/20/23 Anterior;Left Forearm (Active) Line Status No blood return;Saline locked;Flushed;Alcohol sponge cap changed;Connections checked/tightened 09/28/23 08 Site Assessment Clean;Dry;Intact 09/28/23 08 Dressing Type Occlusive;Transparent 09/28/23 08 Dressing Status Clean;Dry;Intact 09/28/23 08 Dressing Intervention Initial dressing 09/27/23 0200 Dressing Change Due (Non-Gauze) 09/27/23 09/20/23 1945 Urinary Catheter 09/20/23 (Active) Catheter Status Patent 09/28/23 0800 Site Assessment Clean;Skin intact 09/28/23 08 Collection Container Standard drainage bag/container 09/28/23 08 Securement Method Securing device (Describe);Tube rolon;Secured left 09/28/23 08 Tamper Evident Seal Intact Yes 09/28/23 08 Reason for Continuing Strict I&O in critically ill patient 09/28/23 0800 Urine Color Yellow/straw 09/28/23 08 Urine Appearance Hazy;Sediment 09/28/23 08 Output (mL) 275 mL 09/28/23 1046 I/O last 3 completed shifts: In: 2112.1 [P.O.:180; I.V.:737.7; IV Piggyback:1194.4] Out: 6735 [Urine:6735] I/O this shift: In: - Out: 825 [Urine:825] Physical Exam Constitutional: Well-developed, no acute distress, obese Head: Normocephalic and atraumatic Heart: Afib rhythm. No gallops, rubs, or murmurs. Distal pulses are palpable Lungs: Resps easy and non-labored. Diminished in lung bases. Neuro: GEORGINA, BEASLEY, awake and appropriately following commands GI: Abd soft, rounded with active BS. : Urine is yellow and clear per dasilva cath Extremities: 1+ LE edema Recent Results (from the past 24 hour(s)) Ionized calcium Collection Time: 09/27/23 12:28 PM Result Value Ref Range Calcium, ionized 4.4 (L) 4.5 - 5.3 mg/dL Bedside Glucose *Place/Obtain serum glucose if >500(>600 [facility]) per glucometer. Collection Time: 09/27/23 12:48 PM Result Value Ref Range Bedside glucose 125 (H) 65 - 99 mg/dL Bedside Glucose *Place/Obtain serum glucose if >500(>600 [facility]) per glucometer. Collection Time: 09/27/23 4:38 PM Result Value Ref Range Bedside glucose 132 (H) 65 - 99 mg/dL Bedside Glucose *Place/Obtain serum glucose if >500(>600 [facility]) per glucometer. Collection Time: 09/27/23 9:52 PM Result Value Ref Range Bedside glucose 142 (H) 65 - 99 mg/dL Ionized calcium Collection Time: 09/27/23 11:11 PM Result Value Ref Range Calcium, ionized 4.5 4.5 - 5.3 mg/dL Protime & INR Collection Time: 09/28/23 2:30 AM Result Value Ref Range Protime 22.9 (H) 9.8 - 13.2 sec Inr 2.0 (H) 0.8 - 1.1 Magnesium Collection Time: 09/28/23 2:30 AM Result Value Ref Range Magnesium 2.0 1.8 - 2.6 mg/dL Phosphorus Collection Time: 09/28/23 2:30 AM Result Value Ref Range Phosphorus 5.3 (H) 2.4 - 4.9 mg/dL Ionized calcium Collection Time: 09/28/23 2:30 AM Result Value Ref Range Calcium, ionized 4.5 4.5 - 5.3 mg/dL Procalcitonin Collection Time: 09/28/23 2:30 AM Result Value Ref Range Procalcitonin 0.93 (H) <0.05 ng/mL Ammonia Collection Time: 09/28/23 2:30 AM Result Value Ref Range Ammonia 36 18 - 72 umol/L Comprehensive metabolic panel Collection Time: 09/28/23 2:30 AM Result Value Ref Range Sodium 148 (H) 134 - 146 mmol/L Potassium, Bld 3.2 (L) 3.5 - 5.0 mmol/L Chloride 104 98 - 109 mmol/L CO2 30 22 - 32 mmol/L Anion gap 14 5 - 15 mmol/L BUN 86 (H) 5 - 27 mg/dL Creatinine 3.24 (H) 0.40 - 1.00 mg/dL Glucose 129 (H) 65 - 99 mg/dL Calcium 8.7 8.5 - 10.5 mg/dL Total Protein 6.1 6.0 - 8.0 g/dL Albumin 3.4 3.2 - 5.3 g/dL Alkaline Phosphatase 78 39 - 130 U/L AST 18 0 - 41 U/L ALT 11 0 - 31 U/L Total bilirubin 1.0 0.3 - 1.2 mg/dL eGFR (CKD-EPI)non-race dependent 15 (L) >59 ml/min/1.73sq.m CBC auto differential Collection Time: 09/28/23 4:20 AM Result Value Ref Range White Blood Cells 10.9 4.0 - 11.0 X10E9/L RBC count 2.43 (L) 3.80 - 5.20 X10E12/L Hemoglobin 7.5 (L) 11.7 - 15.5 g/dL Hematocrit 23.2 (L) 35 - 47 % MCV 96 80 - 100 fL MCH 31.1 27 - 34 pg MCHC 32.5 32 - 36 g/dL RDW 19.5 (H) 11.5 - 15.0 % Platelets 81 (L) 150 - 450 X10E9/L MPV 10.0 7 - 12 fL % neutrophils 87.3 % % lymphocytes 5.2 % % monocytes 6.5 % % eosinophils 0.9 % % Basophils 0.1 % Neutrophils Absolute (A) 9.5 (H) 1.5 - 6.6 X10E9/L Lymphocytes Absolute 0.6 (L) 1.0 - 3.5 X10E9/L Monocytes Absolute 0.7 0 - 0.9 X10E9/L Eosinophils Absolute 0.1 0.0 - 0.4 X10E9/L Basophils Absolute 0.0 0.0 - 0.2 X10E9/L Microbiology Results Procedure Component Value Units Date/Time Blood culture #2 [[id number]] (Abnormal) Collected: 09/27/23 0538 Specimen: Blood Updated: 09/28/23 0337 Culture GRAM POSITIVE COCCI IN CLUSTERS CULTURE IN PROGRESS Staphylococcus species detected by PCR (not S. aureus, S.epidermidis, or S.lugdunensis). Blood culture #1 [[id number]] Collected: 09/27/23 0431 Specimen: Blood Updated: 09/28/23 0546 Specimen Notes ONLY AEROBIC BOTTLE RECEIVED, SUBOPTIMAL VOLUME OF BLOOD COLLECTED, RESULTS MAY BE AFFECTED Culture NO GROWTH 1 DAY Urine culture [[id number]] Collected: 09/27/23 0405 Specimen: Urine Updated: 09/28/23 0701 Specimen Notes URINE RECEIVED WITHOUT PRESERVATIVE Culture NO GROWTH AT <1000 CFU/mL Urine culture [[id number]] Collected: 09/23/23 2110 Specimen: Urine Updated: 09/24/23 1633 Culture NO GROWTH AT <1000 CFU/mL Current Facility-Administered Medications: bumetanide (BUMEX) 3 mg in sodium chloride 0.9 % 50 mL IVPB, 3 mg, intravenous, BID, Vidhit Miguel, DO, Stopped at 09/28/23 0849 calcium gluconate IVPB 1000 mg/50 mL (20 mg/mL premix), 1,000 mg, intravenous, PRN, Stopped at 09/27/23 1754 OR calcium gluconate IVPB 2000 mg/100 mL (20 mg/mL premix), 2,000 mg, intravenous, PRN OR calcium gluconate 3,000 mg in sodium chloride 0.9 % 100 mL IVPB, 3,000 mg, intravenous, PRN, NICOLAS Webb cefTRIAXone (ROCEPHIN) 1,000 mg in sodium chloride 0.9 % 50 mL IVPB-MBP, 1,000 mg, intravenous, Q24H, NICOLAS Lima, Stopped at 09/28/23 0621 darbepoetin stefania-polysorbate (ARANESP) injection 100 mcg, 100 mcg, subcutaneous, Weekly, Vidhit Miguel, DO, 100 mcg at 09/22/23 1348 dextrose (GLUTOSE) 40 % gel 15 g, 15 g, oral, PRN, NICOLAS Webb dextrose 5 % (D5W) infusion, 100 mL/hr, intravenous, Continuous PRN, NICOLAS Webb [COMPLETED] insulin regular (HumuLIN R,NovoLIN R) injection 10 Units, 10 Units, intravenous, Once, 10 Units at 09/20/23 0909 AND dextrose 50 % in water (D50W) 50% solution 25 g, 25 g, intravenous, Once PRN AND dextrose 50 % in water (D50W) 50% solution 50 g, 50 g, intravenous, Once PRN, NICOLAS Webb dextrose 50 % in water (D50W) 50% solution 25 mL, 25 mL, intravenous, PRN, NICOLAS Webb folic acid (FOLVITE) tablet 1 mg, 1 mg, oral, Daily, NICOLAS Chavez, 1 mg at 09/28/23 0819 glucagon HCL injection 1 mg, 1 mg, intramuscular, PRN, NICOLAS Webb insulin lispro (HumaLOG) injection 2-10 Units, 2-10 Units, subcutaneous, With meals and nightly, NICOLAS Webb, 2 Units at 09/28/23 0828 iron sucrose (VENOFER) IVPB 200 mg/100 mL in sodium chloride 0.9% (CMPD premix), 200 mg, intravenous, Every Other Day, Dede Rivera DO, Stopped at 09/28/23 0945 magnesium sulfate IVPB 2000 mg/50 mL in iso-osmotic water (40 mg/mL premix), 2,000 mg, intravenous, PRN OR magnesium sulfate IVPB 4000 mg/100 mL in iso-osmotic water (40 mg/mL premix), 4,000 mg, intravenous, PRN, Salbador Howell, CARDIAC CATH TECHNICIAN-[employer] metOLazone (ZAROXOLYN) tablet 10 mg, 10 mg, oral, Daily, Lilia Cox MD, 10 mg at 09/28/23 0820 metoprolol (LOPRESSOR) injection 5 mg, 5 mg, intravenous, Q6H PRN, Samanta Wright MD, 5 mg at 09/28/23 0936 metoprolol tartrate (LOPRESSOR) tablet 50 mg, 50 mg, oral, BID, Samanta Wright MD, 50 mg at 09/28/23 0820 midodrine (PROAMATINE) tablet 10 mg, 10 mg, oral, PRN, Dede Rivera DO, 10 mg at 09/22/23 0947 midodrine (PROAMATINE) tablet 15 mg, 15 mg, oral, Q6H, Ulisses Silver MD, 15 mg at 09/28/23 0820 pantoprazole (PROTONIX) EC tablet 40 mg, 40 mg, oral, [facility], KAVYA Rosario, 40 mg at 09/28/23 0612 phenylephrine (EDMOND-SYNEPHRINE) 100 mg in sodium chloride 0.9 % 250 mL (0.4 mg/mL) infusion, 0.5-2.5 mcg/kg/min, intravenous, Continuous, Danie Reid, CARDIAC CATH TECHNICIAN-[employer], Stopped at 09/27/23 1331 potassium chloride (K-TAB,KLOR-CON) CR tablet 20 mEq, 20 mEq, oral, Q6H, Lilia Cox MD, 20 mEq at 09/28/23 0820 sennosides-docusate sodium (SENOKOT-S) 8.6-50 mg 2 tablet, 2 tablet, oral, Nightly, Samanta Wright MD, 2 tablet at 09/26/232025 sevelamer (RENVELA) tablet 800 mg, 800 mg, oral, TID with meals, Melindaricardo Miguel, DO, 800 mg at 09/28/23 0821 sodium chloride 0.9 % flush 10 mL, 10 mL, intravenous, Q96H, Shiraz Danny, CARDIAC CATH TECHNICIAN-[employer], 10 mL at 09/25/23 1212 sodium chloride 0.9 % flush 10 mL, 10 mL, intravenous, PRN, Shiraz Danny, CARDIAC CATH TECHNICIAN-[employer], 10 mL at 09/21/23 1153 sodium chloride 0.9 % flush 10 mL, 10 mL, intravenous, PRN, Shiraz Danny, CARDIAC CATH TECHNICIAN-[employer], 10 mL at 09/21/23 1500 sodium chloride 0.9 % flush 10 mL, 10 mL, intravenous, Q96H, Shiraz Danny, CARDIAC CATH TECHNICIAN-[employer], 10 mL at 09/25/23 1212 sodium chloride 0.9 % flush 10 mL, 10 mL, intravenous, PRN, Shiraz Danny, CARDIAC CATH TECHNICIAN-[employer], 10 mL at 09/21/23 1153 sodium chloride 0.9 % flush 10 mL, 10 mL, intravenous, PRN, Shiraz Danny, CARDIAC CATH TECHNICIAN-[employer], 10 mL at 09/21/23 1500 sodium chloride 0.9 % flush 10 mL, 10 mL, intravenous, Q8H, 10 mL at 09/28/23 0334 AND sodium citrate 4 % (3 mL) flush 2 mL, 2 mL, intravenous, Q8H AND sodium chloride 0.9 % flush 10 mL, 10 mL, intravenous, PRN AND sodium chloride 0.9 % flush 10 mL, 10 mL, intravenous, PRN, 10 mL at 09/26/23 0305 AND sodium citrate 4 % (3 mL) flush 2 mL, 2 mL, intravenous, PRN, Shiraz Danny, CARDIAC CATH TECHNICIAN-[employer] sodium chloride 0.9 % flush 3 mL, 3 mL, intravenous, Q12H, Tanner Harris MD, 3 mL at 09/28/23 0931 sodium chloride 0.9 % infusion, 10 mL/hr, intravenous, Continuous PRN, Salbador Howell, CARDIAC CATH TECHNICIAN-[employer] sodium chloride 0.9 % infusion, 10 mL/hr, intravenous, Continuous PRN, Salbador Howell CARDIAC CATH TECHNICIAN-[employer], Stopped at 09/25/23 0130 sodium chloride 0.9 % infusion, 10 mL/hr, intravenous, Continuous PRN, Salbador Howell CARDIAC CATH TECHNICIAN-[employer], Last Rate: 10 mL/hr at 09/28/23 1045, 10 mL/hr at 09/28/23 1045 sodium chloride 0.9 % infusion, 20 mL/hr, intravenous, Continuous PRN, Tanner Harris MD, Last Rate: 20 mL/hr at 09/28/23 0624, Rate Verify at 09/28/23 0624 sodium chloride 0.9 % infusion, 250 mL, hemodialysis, Continuous, Vidhit Miguel, DO sodium chloride 0.9 % infusion, 250 mL, hemodialysis, Continuous, Vidhit Miguel, DO sodium citrate 4 % (3 mL) flush 2 mL, 2 mL, intravenous, Q96H, Shiraz Danny, CARDIAC CATH TECHNICIAN-[employer], 2 mL at 09/25/23 1213 sodium citrate 4 % (3 mL) flush 2 mL, 2 mL, intravenous, PRN, Shiraz Danny, CARDIAC CATH TECHNICIAN-[employer], 2 mL at 09/22/23 1151 sodium citrate 4 % (3 mL) flush 2 mL, 2 mL, intravenous, Q96H, Shiraz Danny, CARDIAC CATH TECHNICIAN-[employer], 2 mL at 09/25/23 1213 sodium citrate 4 % (3 mL) flush 2 mL, 2 mL, intravenous, PRN, Shiraz Danny, CARDIAC CATH TECHNICIAN-[employer], 2 mL at 09/22/23 1150 Anel Lara PA-C 09/28/23 1129 Images from the original note were not included. Nephrology Daily Progress Note INTERVAL HISTORY/History of present illness: Patient denies any nausea or vomiting. No chest pain. No fever or chills. Good urine output PROBLEM LIST: Acute on chronic renal failure stage 4 with serum creatinine of 1.8 mg/dL in 2020, Renal ultrasound from 09/04/2023 showing right kidney 10.8 cm, left kidney 10.9 cm, no hydronephrosis noted. The urinalysis revealed more than 720 RBC and 185 WBC per high-power field, urine protein creatinine ratio was 16.8, FENA was more than 2%, TERRANCE, anti-GBM and vasculitis profile were negative, serum complements were within normal, serum protein electrophoresis unremarkable Shock Acute respiratory failure with bilateral pulmonary infiltrate Atrial fibrillation with history of ablation on chronic anticoagulation Diabetes mellitus type 2 Coronary artery disease, cardiac catheterization in 1999 revealed proximal LAD to mid LAD had 50% stenosis, the left circumflex had 50% proximal to mid lesion, the right coronary artery had 65% ostial to mid lesion Obesity Chronic systolic congestive heart failure Injury to the back Tonsillectomy Myringotomy tube VITAL SIGNS TREND: Vitals: 09/28/23 0600 09/28/23 0700 09/28/23 0800 09/28/23 0900 BP: 90/61 (!) 89/60 101/62 92/54 Pulse: 103 110 (!) 122 (!) 131 Resp: 19 (!) 31 21 (!) 26 Temp: 36.9 C (98.4 F) TempSrc: Oral SpO2: 97% 96% 97% 99% Weight: Height: INTAKE/OUTPUT: Intake/Output Summary (Last 24 hours) at 09/28/2023 1020 Last data filed at 09/28/2023 0833 Gross per 24 hour Intake 777.72 ml Output 4550 ml Net -3772.28 ml I/O this shift: In: - Out: 550 [Urine:550] WEIGHT: Wt Readings from Last 3 Encounters: 09/28/23 121 kg (266 lb 12.1 oz) 09/19/23 132 kg (291 lb) 09/05/23 114.3 kg (252 lb) bumetanide, 3 mg, intravenous, BID cefTRIAXone (ROCEPHIN) IV, 1,000 mg, intravenous, Q24H darbepoetin stefania (ARANESP) injection, 100 mcg, subcutaneous, Weekly folic acid, 1 mg, oral, Daily insulin lispro, 2-10 Units, subcutaneous, With meals and nightly iron sucrose, 200 mg, intravenous, Every Other Day metOLazone, 10 mg, oral, Daily metoprolol tartrate, 50 mg, oral, BID midodrine, 15 mg, oral, Q6H pantoprazole, 40 mg, oral, QAM AC potassium chloride, 20 mEq, oral, Q6H sennosides-docusate sodium, 2 tablet, oral, Nightly sevelamer, 800 mg, oral, TID with meals sodium chloride, 10 mL, intravenous, Q96H sodium chloride, 10 mL, intravenous, Q96H sodium chloride, 10 mL, intravenous, Q8H AND sodium citrate, 2 mL, intravenous, Q8H AND sodium chloride, 10 mL, intravenous, PRN AND sodium chloride, 10 mL, intravenous, PRN AND sodium citrate, 2 mL, intravenous, PRN sodium chloride, 3 mL, intravenous, Q12H sodium citrate, 2 mL, intravenous, Q96H sodium citrate, 2 mL, intravenous, Q96H dextrose 5 % in water, 100 mL/hr phenylephrine (EDMOND-SYNEPHRINE) 100 mg in sodium chloride 0.9 % 250 mL (0.4 mg/mL) infusion, 0.5-2.5 mcg/kg/min, Last Rate: Stopped (09/27/23 1331) sodium chloride 0.9 %, 10 mL/hr sodium chloride 0.9 %, 10 mL/hr, Last Rate: Stopped (09/25/23 0130) sodium chloride 0.9 %, 10 mL/hr, Last Rate: 10 mL/hr (09/28/23 0624) sodium chloride 0.9 %, 20 mL/hr, Last Rate: 20 mL/hr (09/28/23 0624) sodium chloride 0.9 %, 250 mL sodium chloride 0.9 %, 250 mL PHYSICAL EXAM: Blood pressure 92/54, pulse (!) 131, temperature 36.9 C (98.4 F), temperature source Oral, resp. rate (!) 26, height 165.1 cm (5' 5 ), weight 121 kg (266 lb 12.1 oz), SpO2 99%. Temp: [36.7 C (98 F)-37 C (98.6 F)] 36.9 C (98.4 F) Pulse: [96-131] 131 Resp: [14-36] 26 BP: (85-130)/(48-102) 92/54 FiO2 (%): [40 %] 40 % SpO2: [81 %-100 %] 99 % O2 Device: Nasal cannula O2 Flow Rate (L/min): [4 L/min] 4 L/min General appearance: Awake. Comfortable HEENT: no JVD, no carotid bruits, no lymphadenopathy. Cardiovascular: normal S1-S2 Respiratory: Gastrointestinal: soft, no tenderness, no guarding, positive bowel sounds Musculoskeletal: 2+ edema Skin : No Rash. Neuro: Alert and awake LABORATORY EVALUATION: Results from last 7 days Lab Units 09/28/2322909/27/2331109/26/23 19209/26/23 03009/25/2331409/24/23 0428 SODIUM mmol/L 148* 146 -- 144 142 142 POTASSIUM mmol/L 3.2* 3.7 3.5 3.4* 3.3* 3.5 CHLORIDE mmol/L 104 104 -- 103 102 103 CO2 mmol/L -- BUN mg/dL 86* 85* -- 78* 68* 62* CREATININE mg/dL 3.24* 3.54* -- 3.66* 3.79* 4.11* CALCIUM mg/dL 8.7 8.6 -- 8.1* 8.0* 7.7* MAGNESIUM mg/dL 2.0 2.1 -- 2.2 2.1 2.1 PHOSPHORUS mg/dL 5.3* 4.6 -- 5.4* 5.7* 5.4* Results from last 7 days Lab Units 09/28/23 0420 09/27/2331109/26/23 2350 09/26/23 0300 09/25/2331409/24/23 1430 09/24/23 0428 WBC X10E9/L 10.9 18.7* -- 11.3* 10.5 -- 10.1 HEMOGLOBIN g/dL 7.5* 8.1* 7.4* 7.7* 7.9* < > 8.4* HEMATOCRIT % 23.2* 24.8* 23.0* 23.4* 24.1* < > 25.5* PLATELETS X10E9/L 81* 69* -- 36* 37* -- 37* < > = values in this interval not displayed. Results from last 7 days Lab Units 09/28/2309/27/23 0312 09/25/23 0315 09/24/23 0428 09/23/23 0212 TOTAL PROTEIN g/dL 6.1 6.3 6.2 6.0 6.0 ALBUMIN g/dL 3.4 3.7 3.7 3.4 3.7 AST U/L 18 20 19 23 30 ALT U/L 11 18 12 13 16 IMPRESSION: Acute kidney injury on chronic kidney disease stage 4 likely due to acute tubular necrosis. Patient is currently hemodialysis dependent initiated on hemodialysis on 09/21/2023. Creatinine is down to 3.2 mg/dL. Nonoliguric. Acute hypoxemic respiratory failure with pulmonary edema and pleural effusion. Shock: Off pressors. Patient remained on midodrine. Acute on chronic systolic congestive heart failure decompensation with LV ejection fraction 40-45% along with mild to moderate mitral regurgitation and moderate tricuspid valve regurgitation patient is currently achieving negative balance as desired overall the patient is -13 L Anemia of chronic kidney disease. Patient is currently on Aranesp and IV iron. Thrombocytopenia. Haptoglobin was not suppressed. Platelets count is better Hyperphosphatemia patient is currently on Renvela . Phosphorus level is better Metabolic encephalopathy. No evidence of hypercarbia on the ABGs from 09/27/2023. Blood culture from 09/27/2023 is pending. Urine culture is pending Gastrointestinal bleed: GI service is following. Patient is currently on PPI Hypokalemia Hypernatremia due to free water deficit Plan : Continue with metolazone and Bumex Continue with midodrine Strict Is&Os Albumin 25 g IV to help with 3rd spacing. No indication for renal replacement therapy this point. Discussed with the patient's family Ulisses Silver M.D. [facility] Thank you for your consultation and allowing us to participate in the care of Harris Castrejon and please do not hesitate to call us with any questions at: Office: [phone] Office Answering Service: [phone] Please feel free to contact me through [facility] Secure chat during the daytime hours, if no response after 5 minutes then call the answering service. This note was created with the assistance of a speech-recognition program. Although the intention is to generate a document that actually reflects the content of the visit, no guarantees can be provided that every mistake has been identified and corrected by editing. Images from the original note were not included. [facility] Gurpreet Nagy M.D. Racquel Langston M.D. Sonya Ruelas M.D. Sunni Stack M.D. Tara Funes, CARDIAC CATH TECHNICIAN-[employer] Keron Gtzxochitl, CARDIAC CATH TECHNICIAN-[employer] Tiffanie Segal, CARDIAC CATH TECHNICIAN-[employer] Rufina Dowd, CARDIAC CATH TECHNICIAN-[employer] JUAN Brown M.D. Steve Cline M.D. Alfred Adams M.D. Carole Gaviria, CARDIAC CATH TECHNICIAN-[employer] Jenny Calhoun, CARDIAC CATH TECHNICIAN-[employer] Tian Dhaliwal, CARDIAC CATH TECHNICIAN-[employer] Yeny Medrano, CARDIAC CATH TECHNICIAN-[employer] Mendy Nielsen, CARDIAC CATH TECHNICIAN-[facility] Interval History/Subjective: Harris Castrejon was seen and examined. In bed. No acute complaints. ROS: 10+ review of system was performed and pertinent positive and negative findings are mentioned above in the HPI HPI (adapted from initial consult): Harris Castrejon is a 68 y.o. female with a PMHx of atrial fibrillation, HTN, CKD now on dialysis, CHF, and obesity. She presented to [facility] from [facility] with complaints of generalized weakness. She was recently admitted earlier in August and diagnosed with kidney disease, but was not on dialysis. Upon arrival to [place] [facility], she was found to have an INR of 16.6, a creatinine of 6.52, while being hypotensive requiring pressor support. She was transferred to [facility] for further evaluation and management. During her admission, her thrombocytopenia has worsened, nearly dropping 50% in 4-5 days. Hematology has been consulted for this finding. Objective Physical Examination: Vitals: BP 92/54 Pulse (!) 131 Temp 36.9 C (98.4 F) (Oral) Resp (!) 26 Ht 165.1 cm (5' 5 ) Wt 121 kg (266 lb 12.1 oz) SpO2 99% BMI 44.39 kg/m General appearance: In no acute distress. Lungs: Clear to auscultation. Heart: regular rate and rhythm Abdomen: Soft, non tender, + BS Extremities: No significant edema Neurologic: There was no unilateral weakness. Mood and affect: Normal. Recent Labs Recent Results (from the past 48 hour(s)) Bedside Glucose *Place/Obtain serum glucose if >500(>600 MRH) per glucometer. Collection Time: 09/26/23 12:12 PM Result Value Ref Range Bedside glucose 149 (H) 65 - 99 mg/dL Bedside Glucose *Place/Obtain serum glucose if >500(>600 MRH) per glucometer. Collection Time: 09/26/23 5:21 PM Result Value Ref Range Bedside glucose 191 (H) 65 - 99 mg/dL Potassium Collection Time: 09/26/23 7:27 PM Result Value Ref Range Potassium, Bld 3.5 3.5 - 5.0 mmol/L Ionized calcium Collection Time: 09/26/23 7:27 PM Result Value Ref Range Calcium, ionized 4.3 (L) 4.5 - 5.3 mg/dL Ionized magnesium Collection Time: 09/26/23 7:27 PM Result Value Ref Range Magnesium, ionized 0.58 0.45 - 0.74 mmol/L Bedside Glucose *Place/Obtain serum glucose if >500(>600 MRH) per glucometer. Collection Time: 09/26/23 7:29 PM Result Value Ref Range Bedside glucose 173 (H) 65 - 99 mg/dL Hemoglobin and hematocrit, blood Collection Time: 09/26/23 11:50 PM Result Value Ref Range Hemoglobin 7.4 (L) 11.7 - 15.5 g/dL Hematocrit 23.0 (L) 35 - 47 % Protime & INR Collection Time: 09/27/23 3:12 AM Result Value Ref Range Protime 25.5 (H) 9.8 - 13.2 sec Inr 2.3 (H) 0.8 - 1.1 CBC auto differential Collection Time: 09/27/23 3:12 AM Result Value Ref Range White Blood Cells 18.7 (H) 4.0 - 11.0 X10E9/L RBC count 2.62 (L) 3.80 - 5.20 X10E12/L Hemoglobin 8.1 (L) 11.7 - 15.5 g/dL Hematocrit 24.8 (L) 35 - 47 % MCV 95 80 - 100 fL MCH 30.8 27 - 34 pg MCHC 32.5 32 - 36 g/dL RDW 19.8 (H) 11.5 - 15.0 % Platelets 69 (L) 150 - 450 X10E9/L MPV 11.1 7 - 12 fL % neutrophils 86.7 % % lymphocytes 5.1 % % monocytes 7.1 % % eosinophils 1.0 % % Basophils 0.1 % Neutrophils Absolute (A) 16.2 (H) 1.5 - 6.6 X10E9/L Lymphocytes Absolute 0.9 (L) 1.0 - 3.5 X10E9/L Monocytes Absolute 1.3 (H) 0 - 0.9 X10E9/L Eosinophils Absolute 0.2 0.0 - 0.4 X10E9/L Basophils Absolute 0.0 0.0 - 0.2 X10E9/L Magnesium Collection Time: 09/27/23 3:12 AM Result Value Ref Range Magnesium 2.1 1.8 - 2.6 mg/dL Phosphorus Collection Time: 09/27/23 3:12 AM Result Value Ref Range Phosphorus 4.6 2.4 - 4.9 mg/dL Procalcitonin Collection Time: 09/27/23 3:12 AM Result Value Ref Range Procalcitonin 0.74 (H) <0.05 ng/mL Ionized calcium Collection Time: 09/27/23 3:12 AM Result Value Ref Range Calcium, ionized 4.4 (L) 4.5 - 5.3 mg/dL Comprehensive metabolic panel Collection Time: 09/27/23 3:12 AM Result Value Ref Range Sodium 146 134 - 146 mmol/L Potassium, Bld 3.7 3.5 - 5.0 mmol/L Chloride 104 98 - 109 mmol/L CO2 27 22 - 32 mmol/L Anion gap 15 5 - 15 mmol/L BUN 85 (H) 5 - 27 mg/dL Creatinine 3.54 (H) 0.40 - 1.00 mg/dL Glucose 142 (H) 65 - 99 mg/dL Calcium 8.6 8.5 - 10.5 mg/dL Total Protein 6.3 6.0 - 8.0 g/dL Albumin 3.7 3.2 - 5.3 g/dL Alkaline Phosphatase 98 39 - 130 U/L AST 20 0 - 41 U/L ALT 18 0 - 31 U/L Total bilirubin 1.2 0.3 - 1.2 mg/dL eGFR (CKD-EPI)non-race dependent 14 (L) >59 ml/min/1.73sq.m Urine culture Collection Time: 09/27/23 4:05 AM Specimen: Urine Result Value Ref Range Specimen Notes URINE RECEIVED WITHOUT PRESERVATIVE Culture NO GROWTH AT <1000 CFU/mL Blood culture #1 Collection Time: 09/27/23 4:31 AM Specimen: Blood Result Value Ref Range Specimen Notes ONLY AEROBIC BOTTLE RECEIVED, SUBOPTIMAL VOLUME OF BLOOD COLLECTED, RESULTS MAY BE AFFECTED Culture NO GROWTH 1 DAY Blood culture #2 Collection Time: 09/27/23 5:38 AM Specimen: Blood Result Value Ref Range Culture GRAM POSITIVE COCCI IN CLUSTERS (A) Culture CULTURE IN PROGRESS Culture (A) Staphylococcus species detected by PCR (not S. aureus, S.epidermidis, or S.lugdunensis). Bedside Glucose *Place/Obtain serum glucose if >500(>600 MRH) per glucometer. Collection Time: 09/27/23 8:55 AM Result Value Ref Range Bedside glucose 171 (H) 65 - 99 mg/dL Blood Gas, Arterial Collection Time: 09/27/23 9:36 AM Result Value Ref Range Sample Type ARTERIAL Body Temp 37.0 37.0 C pH 7.431 7.350 - 7.450 PCO2 37.8 35 - 45 MMHG PO2 73 (L) 80 - 100 MMHG Base,Excess 1.0 0.0 - 2.0 MMOL/L Portable HCO3 25.1 22 - 26 MMOL/L % O2 Sat 95.0 >90 % Ronnie's Test Pass SPO2 100 % Sample Site LRad Insp. O2 Conc. 28 % Oxygen Source Vent Ionized calcium Collection Time: 09/27/23 12:28 PM Result Value Ref Range Calcium, ionized 4.4 (L) 4.5 - 5.3 mg/dL Bedside Glucose *Place/Obtain serum glucose if >500(>600 MRH) per glucometer. Collection Time: 09/27/23 12:48 PM Result Value Ref Range Bedside glucose 125 (H) 65 - 99 mg/dL Bedside Glucose *Place/Obtain serum glucose if >500(>600 MRH) per glucometer. Collection Time: 09/27/23 4:38 PM Result Value Ref Range Bedside glucose 132 (H) 65 - 99 mg/dL Bedside Glucose *Place/Obtain serum glucose if >500(>600 MRH) per glucometer. Collection Time: 09/27/23 9:52 PM Result Value Ref Range Bedside glucose 142 (H) 65 - 99 mg/dL Ionized calcium Collection Time: 09/27/23 11:11 PM Result Value Ref Range Calcium, ionized 4.5 4.5 - 5.3 mg/dL Protime & INR Collection Time: 09/28/23 2:30 AM Result Value Ref Range Protime 22.9 (H) 9.8 - 13.2 sec Inr 2.0 (H) 0.8 - 1.1 Magnesium Collection Time: 09/28/23 2:30 AM Result Value Ref Range Magnesium 2.0 1.8 - 2.6 mg/dL Phosphorus Collection Time: 09/28/23 2:30 AM Result Value Ref Range Phosphorus 5.3 (H) 2.4 - 4.9 mg/dL Ionized calcium Collection Time: 09/28/23 2:30 AM Result Value Ref Range Calcium, ionized 4.5 4.5 - 5.3 mg/dL Procalcitonin Collection Time: 09/28/23 2:30 AM Result Value Ref Range Procalcitonin 0.93 (H) <0.05 ng/mL Ammonia Collection Time: 09/28/23 2:30 AM Result Value Ref Range Ammonia 36 18 - 72 umol/L Comprehensive metabolic panel Collection Time: 09/28/23 2:30 AM Result Value Ref Range Sodium 148 (H) 134 - 146 mmol/L Potassium, Bld 3.2 (L) 3.5 - 5.0 mmol/L Chloride 104 98 - 109 mmol/L CO2 30 22 - 32 mmol/L Anion gap 14 5 - 15 mmol/L BUN 86 (H) 5 - 27 mg/dL Creatinine 3.24 (H) 0.40 - 1.00 mg/dL Glucose 129 (H) 65 - 99 mg/dL Calcium 8.7 8.5 - 10.5 mg/dL Total Protein 6.1 6.0 - 8.0 g/dL Albumin 3.4 3.2 - 5.3 g/dL Alkaline Phosphatase 78 39 - 130 U/L AST 18 0 - 41 U/L ALT 11 0 - 31 U/L Total bilirubin 1.0 0.3 - 1.2 mg/dL eGFR (CKD-EPI)non-race dependent 15 (L) >59 ml/min/1.73sq.m CBC auto differential Collection Time: 09/28/23 4:20 AM Result Value Ref Range White Blood Cells 10.9 4.0 - 11.0 X10E9/L RBC count 2.43 (L) 3.80 - 5.20 X10E12/L Hemoglobin 7.5 (L) 11.7 - 15.5 g/dL Hematocrit 23.2 (L) 35 - 47 % MCV 96 80 - 100 fL MCH 31.1 27 - 34 pg MCHC 32.5 32 - 36 g/dL RDW 19.5 (H) 11.5 - 15.0 % Platelets 81 (L) 150 - 450 X10E9/L MPV 10.0 7 - 12 fL % neutrophils 87.3 % % lymphocytes 5.2 % % monocytes 6.5 % % eosinophils 0.9 % % Basophils 0.1 % Neutrophils Absolute (A) 9.5 (H) 1.5 - 6.6 X10E9/L Lymphocytes Absolute 0.6 (L) 1.0 - 3.5 X10E9/L Monocytes Absolute 0.7 0 - 0.9 X10E9/L Eosinophils Absolute 0.1 0.0 - 0.4 X10E9/L Basophils Absolute 0.0 0.0 - 0.2 X10E9/L Inpatient scheduled medications: Current Facility-Administered Medications: bumetanide (BUMEX) 3 mg in sodium chloride 0.9 % 50 mL IVPB, 3 mg, intravenous, BID, Dede Rivera DO, Stopped at 09/28/23 0849 calcium gluconate IVPB 1000 mg/50 mL (20 mg/mL premix), 1,000 mg, intravenous, PRN, Stopped at 09/27/23 1754 OR calcium gluconate IVPB 2000 mg/100 mL (20 mg/mL premix), 2,000 mg, intravenous, PRN OR calcium gluconate 3,000 mg in sodium chloride 0.9 % 100 mL IVPB, 3,000 mg, intravenous, PRN, Salbador Howell APRN-ALINA cefTRIAXone (ROCEPHIN) 1,000 mg in sodium chloride 0.9 % 50 mL IVPB-MBP, 1,000 mg, intravenous, Q24H, Luly Prerna Marcial, NICOLAS, Stopped at 09/28/23 0621 darbepoetin stefania-polysorbate (ARANESP) injection 100 mcg, 100 mcg, subcutaneous, Weekly, Vidhit Miguel, DO, 100 mcg at 09/22/23 1348 dextrose (GLUTOSE) 40 % gel 15 g, 15 g, oral, PRN, NICOLAS Webb dextrose 5 % (D5W) infusion, 100 mL/hr, intravenous, Continuous PRN, NICOLAS Webb [COMPLETED] insulin regular (HumuLIN R,NovoLIN R) injection 10 Units, 10 Units, intravenous, Once, 10 Units at 09/20/23 0909 AND dextrose 50 % in water (D50W) 50% solution 25 g, 25 g, intravenous, Once PRN AND dextrose 50 % in water (D50W) 50% solution 50 g, 50 g, intravenous, Once PRNSalbador APRN-CNP dextrose 50 % in water (D50W) 50% solution 25 mL, 25 mL, intravenous, PRN, NICOLAS Webb folic acid (FOLVITE) tablet 1 mg, 1 mg, oral, Daily, NICOLAS Chavez, 1 mg at 09/28/23 0819 glucagon HCL injection 1 mg, 1 mg, intramuscular, PRNSalbador APRN-CNP insulin lispro (HumaLOG) injection 2-10 Units, 2-10 Units, subcutaneous, With meals and nightly, NICOLAS Webb, 2 Units at 09/28/23 0828 iron sucrose (VENOFER) IVPB 200 mg/100 mL in sodium chloride 0.9% (CMPD premix), 200 mg, intravenous, Every Other Day, Vidhit Miguel, DO, Stopped at 09/28/23 0945 magnesium sulfate IVPB 2000 mg/50 mL in iso-osmotic water (40 mg/mL premix), 2,000 mg, intravenous, PRN OR magnesium sulfate IVPB 4000 mg/100 mL in iso-osmotic water (40 mg/mL premix), 4,000 mg, intravenous, PRN, Salbador Howell, CARDIAC CATH TECHNICIAN-[employer] metOLazone (ZAROXOLYN) tablet 10 mg, 10 mg, oral, Daily, Lilia Cox MD, 10 mg at 09/28/23 0820 metoprolol (LOPRESSOR) injection 5 mg, 5 mg, intravenous, Q6H PRN, Samanta Wright MD, 5 mg at 09/28/23 0936 metoprolol tartrate (LOPRESSOR) tablet 50 mg, 50 mg, oral, BID, Samanta Wright MD, 50 mg at 09/28/23 0820 midodrine (PROAMATINE) tablet 10 mg, 10 mg, oral, PRN, Vidhit Miguel, DO, 10 mg at 09/22/23 0947 midodrine (PROAMATINE) tablet 15 mg, 15 mg, oral, Q6H, Ulisses Silver MD, 15 mg at 09/28/23 0820 pantoprazole (PROTONIX) EC tablet 40 mg, 40 mg, oral, QA AC, KAVYA Rosario, 40 mg at 09/28/23 0612 phenylephrine (EDMOND-SYNEPHRINE) 100 mg in sodium chloride 0.9 % 250 mL (0.4 mg/mL) infusion, 0.5-2.5 mcg/kg/min, intravenous, Continuous, Danie Reid, NICOLAS, Stopped at 09/27/23 1331 potassium chloride (K-TAB,KLOR-CON) CR tablet 20 mEq, 20 mEq, oral, Q6H, Lilia Cox MD, 20 mEq at 09/28/23 0820 sennosides-docusate sodium (SENOKOT-S) 8.6-50 mg 2 tablet, 2 tablet, oral, Nightly, Samanta Wright MD, 2 tablet at 09/26/23 2026 sevelamer (RENVELA) tablet 800 mg, 800 mg, oral, TID with meals, Vidhit Miguel, DO, 800 mg at 09/28/23 0821 sodium chloride 0.9 % flush 10 mL, 10 mL, intravenous, Q96H, Shiraz Delgado APRN-[employer], 10 mL at 09/25/23 1212 sodium chloride 0.9 % flush 10 mL, 10 mL, intravenous, PRN, Shiraz Danny, CARDIAC CATH TECHNICIAN-CLASS A LINEMAN, 10 mL at 09/21/23 1153 sodium chloride 0.9 % flush 10 mL, 10 mL, intravenous, PRN, Shiraz Danny, CARDIAC CATH TECHNICIAN-[employer], 10 mL at 09/21/23 1500 sodium chloride 0.9 % flush 10 mL, 10 mL, intravenous, Q96H, Shiraz Danny, CARDIAC CATH TECHNICIAN-[employer], 10 mL at 09/25/23 1212 sodium chloride 0.9 % flush 10 mL, 10 mL, intravenous, PRN, Shiraz Danny, CARDIAC CATH TECHNICIAN-[employer], 10 mL at 09/21/23 1153 sodium chloride 0.9 % flush 10 mL, 10 mL, intravenous, PRN, Shiraz Danny, CARDIAC CATH TECHNICIAN-[employer], 10 mL at 09/21/23 1500 sodium chloride 0.9 % flush 10 mL, 10 mL, intravenous, Q8H, 10 mL at 09/28/23 0334 AND sodium citrate 4 % (3 mL) flush 2 mL, 2 mL, intravenous, Q8H AND sodium chloride 0.9 % flush 10 mL, 10 mL, intravenous, PRN AND sodium chloride 0.9 % flush 10 mL, 10 mL, intravenous, PRN, 10 mL at 09/26/23 0305 AND sodium citrate 4 % (3 mL) flush 2 mL, 2 mL, intravenous, PRN, Shiraz Danny, CARDIAC CATH TECHNICIAN-[employer] sodium chloride 0.9 % flush 3 mL, 3 mL, intravenous, Q12H, Tanner Harris MD, 3 mL at 09/28/23 0931 sodium chloride 0.9 % infusion, 10 mL/hr, intravenous, Continuous PRN, Salbador Howell, CARDIAC CATH TECHNICIAN-[employer] sodium chloride 0.9 % infusion, 10 mL/hr, intravenous, Continuous PRN, Salbador Howell CARDIAC CATH TECHNICIAN-[employer], Stopped at 09/25/23 0130 sodium chloride 0.9 % infusion, 10 mL/hr, intravenous, Continuous PRN, Salbador Howell, CARDIAC CATH TECHNICIAN-[employer], Last Rate: 10 mL/hr at 09/28/23 0624, Rate Verify at 09/28/23 0624 sodium chloride 0.9 % infusion, 20 mL/hr, intravenous, Continuous PRN, Tanner Harris MD, Last Rate: 20 mL/hr at 09/28/23 0624, Rate Verify at 09/28/23 0624 sodium chloride 0.9 % infusion, 250 mL, hemodialysis, Continuous, Vidhit Miguel, DO sodium chloride 0.9 % infusion, 250 mL, hemodialysis, Continuous, Vidhit Miguel, DO sodium citrate 4 % (3 mL) flush 2 mL, 2 mL, intravenous, Q96H, Shiraz Danny, CARDIAC CATH TECHNICIAN-[employer], 2 mL at 09/25/23 1213 sodium citrate 4 % (3 mL) flush 2 mL, 2 mL, intravenous, PRN, Shiraz Danny, CARDIAC CATH TECHNICIAN-[employer], 2 mL at 09/22/23 1151 sodium citrate 4 % (3 mL) flush 2 mL, 2 mL, intravenous, Q96H, Shiraz Danny, CARDIAC CATH TECHNICIAN-[employer], 2 mL at 09/25/23 1213 sodium citrate 4 % (3 mL) flush 2 mL, 2 mL, intravenous, PRN, Shiraz Danny, CARDIAC CATH TECHNICIAN-[employer], 2 mL at 09/22/23 1150 Diagnosis Problem list: Patient Active Problem List Diagnosis Cerumen debris on tympanic membrane of both ears Typical atrial flutter ([facility]) Coronary artery disease involving [place] coronary artery of [place] heart without angina pectoris Tachycardia induced cardiomyopathy ([facility]) Type 2 diabetes mellitus with circulatory disorder, without long-term current use of insulin ([facility]) Other hyperlipidemia Paroxysmal atrial fibrillation ([facility]) BRANDEE (acute kidney injury) ([facility]) Hyperkalemia Bilateral lower extremity edema Systolic and diastolic CHF, acute ([facility]) Acute kidney injury ([facility]) Impression: Acute Hypoxic Respiratory Failure Paroxysmal Atrial Fibrillation On warfarin at home, presented with supratherapeutic INR and thrombocytopenia, has been on hold Hypotension Acute Metabolic Encephalopathy BRANDEE on CKD4 on iHD Acute on Chronic Systolic Congestive Heart Failure with EF 40-45% UTI on Rocephin GIB 2/2 hemorrhoidal bleeding Hypothermia - resolved Acute on Chronic Normocytic Anemia Ferritin 150, TIBC 312, Iron/Iron Sat elevated - likely anemia of CKD Folate 4.2, continue folic acid supplement B12 317, adequate SPEP/IFX - unremarkable Peripheral blood smear: etiology is not evident from the morphology. This may be due to nutritional deficiency, blood loss, ineffective erythropoiesis, medications, etc. There is no hemolysis. Thrombocytopenia may be due to splenic sequestration, ITP, liver disease, drug or alcohol suppression, etc. Acute on Chronic Thrombocytopenia Present on prior labs history, acute drop on admission to 37,000 likely secondary to hypothermia, hypotension, and acute illness May have underlying chronic ITP PF4 0.113 (negative) [id number] Activity is normal, unlikely TTP (no other evidence of hemolysis on lab evaluation) Plan: -Acute on chronic thrombocytopenia is improving with treatment of her acute illness. Etiology is multifactorial and may be related to bone marrow suppression, acute infection, blood loss, and underlying chronic diseases. -She may have underlying chronic ITP, will have her follow up with hematology outpatient for continued monitoring (Dr Barnes in [place]). Our team will arrange. -If her platelet count drops < 20,000, consider treating with Dexamethasone 40mg daily x 4 days + IVIG 1g/kg x 2 days. -Hematology will sign off at this time. Please re-consult if further needs arise. Further medical management of comorbid conditions per primary team and consulting services, appreciate assistance Code Status: Full Code The patient was seen and examined independently and all plans and orders were discussed with the physician on service today, Dr. Douglas Funes, CARDIAC CATH TECHNICIAN, AOCNP [facility] [address] [place] [address] Day time contact: After hours answering service: [phone] September 28, 2023, 10:16 AM I, Gurpreet Nagy MD, personally performed the face to face diagnostic evaluation on this patient. I have reviewed and edited the CHALINO's History, Exam, and MDM as needed and agree with the assessment and plan as written. Today the patient is resting comfortably in the bed and denies any mucocutaneous bleeding from her thrombocytopenia. She continues to require 4 liters/minute via nasal cannula for acute hypoxic respiratory failure. She remains off of vasopressor support. She is receiving intermittent hemodialysis through Nephrology. She has a history of atrial fibrillation however anticoagulation has been held due to thrombocytopenia. HPI. 68-year-old female who is being evaluated by Hematology for her thrombocytopenia. She was hypotensive at admission requiring pressor support. She has also had hemorrhoidal bleeding in this admission. She has developed BRANDEE on CKD from ATN and is receiving hemodialysis. Patient has had thrombocytopenia 114 k/cmm since May of 2021. It has spontaneously improved intermittently. In this admission platelet counts have dropped to 36 k/cmm. Acute on chronic thrombocytopenia - secondary to shock marrow, acute ITP, folic acid deficiency. PF4 (-). [id number] normal. Folate is low. B12 normal. Ferritin normal. Reticulocyte normal.Haptoglobin is not low. Smear shows no schistocytes or blasts.Normocytic anemia and thrombocytopenia are seen, Fibrinogen normal. PLAN. - The marrow will require some time to recover from the shock state that has resulted in marrow ischemia. Her platelets have started to recover and currently have improved to 81 K/cmm.Hgb remains at 7.5 g/dl. - No objection to the initiation of anticoagulation for atrial fibrillation since the platelet count has improved to 81. Anticoagulation should be held if platelet counts dropped to < 40 k/cmm or if the patient has an overt bleed. - TTP,aHUS,DIC,HIT has been ruled out. - Replace folic acid. - rEPO/Venofer per Nephrology for anemia secondary to hemorrhoidal bleeding/CKD. O/P hematology follow-up for monitoring her chronic ITP after discharge. Gurpreet Nagy MD. Images from the original note were not included. [facility] [address] [place] [address] PROGRESS NOTE Harris Castrejon is resting comfortably in bed with nasal cannula oxygen. No acute events reported per nurse. SUBJECTIVE Allergies: No Known Allergies CURRENT MEDICATIONS bumetanide, 3 mg, intravenous, BID cefTRIAXone (ROCEPHIN) IV, 1,000 mg, intravenous, Q24H darbepoetin stefania (ARANESP) injection, 100 mcg, subcutaneous, Weekly folic acid, 1 mg, oral, Daily insulin lispro, 2-10 Units, subcutaneous, With meals and nightly iron sucrose, 200 mg, intravenous, Every Other Day metOLazone, 10 mg, oral, Daily metoprolol tartrate, 50 mg, oral, BID midodrine, 15 mg, oral, Q6H pantoprazole, 40 mg, oral, QAM AC potassium chloride, 20 mEq, oral, Q6H sennosides-docusate sodium, 2 tablet, oral, Nightly sevelamer, 800 mg, oral, TID with meals sodium chloride, 10 mL, intravenous, Q96H sodium chloride, 10 mL, intravenous, Q96H sodium chloride, 10 mL, intravenous, Q8H AND sodium citrate, 2 mL, intravenous, Q8H AND sodium chloride, 10 mL, intravenous, PRN AND sodium chloride, 10 mL, intravenous, PRN AND sodium citrate, 2 mL, intravenous, PRN sodium chloride, 3 mL, intravenous, Q12H sodium citrate, 2 mL, intravenous, Q96H sodium citrate, 2 mL, intravenous, Q96H CONTINUOUS INFUSIONS dextrose 5 % in water, 100 mL/hr phenylephrine (EDMOND-SYNEPHRINE) 100 mg in sodium chloride 0.9 % 250 mL (0.4 mg/mL) infusion, 0.5-2.5 mcg/kg/min, Last Rate: Stopped (09/27/23 133) sodium chloride 0.9 %, 10 mL/hr sodium chloride 0.9 %, 10 mL/hr, Last Rate: Stopped (09/25/23129) sodium chloride 0.9 %, 10 mL/hr, Last Rate: 10 mL/hr (09/27/232005) sodium chloride 0.9 %, 20 mL/hr, Last Rate: 20 mL/hr (09/27/232006) sodium chloride 0.9 %, 250 mL sodium chloride 0.9 %, 250 mL OBJECTIVE CBC: Results from last 7 days Lab Units 09/27/2331109/26/23 2350 09/26/23 0300 09/25/23 0315 WBC X10E9/L 18.7* -- 11.3* 10.5 HEMOGLOBIN g/dL 8.1* 7.4* 7.7* 7.9* HEMATOCRIT % 24.8* 23.0* 23.4* 24.1* MCV fL 95 -- 93 93 PLATELETS X10E9/L 69* -- 36* 37* BMP: Results from last 7 days Lab Units 09/27/2331109/26/23 1927 09/26/23 0300 09/25/23 0315 SODIUM mmol/L 146 -- 144 142 POTASSIUM mmol/L 3.7 3.5 3.4* 3.3* CHLORIDE mmol/L 104 -- 103 102 CO2 mmol/L -- BUN mg/dL 85* -- 78* 68* CREATININE mg/dL 3.54* -- 3.66* 3.79* CALCIUM mg/dL 8.6 -- 8.1* 8.0* PHOSPHORUS mg/dL 4.6 -- 5.4* 5.7* MAGNESIUM mg/dL 2.1 -- 2.2 2.1 PT/INR: Results from last 7 days Lab Units 09/27/2331109/26/2329909/25/23314 PROTIME sec 25.5* 24.3* 20.3* INR 2.3* 2.1* 1.8* APTT: MAG: Results from last 7 days Lab Units 09/27/2331109/26/2329909/25/23314 MAGNESIUM mg/dL 2.1 2.2 2.1 D Dimer: Troponin I ProBNP Lipid Panel: Lab Results Component Value Date CHOL 127 (L) 09/13/2021 TRIG 159 (H) 09/13/2021 HDL 38 (L) 09/13/2021 Liver Panel: No results found for: ALB HgA1C: Lab Results Component Value Date HGBA1C 10.1 (H) 02/08/2021 ABG: Lab Results Component Value Date pH 7.431 09/27/2023 PCO2 37.8 09/27/2023 PO2 73 (L) 09/27/2023 Base,Excess 1.0 09/27/2023 Base,Deficit 3.0 (H) 09/23/2023 Portable HCO3 25.1 09/27/2023 SPO2 100 09/27/2023 CV TESTING HISTORY: ECHO: Echo complete W/ contrast Result Date: 09/04/2023 Left Ventricle: There is mild concentric increased wall thickness/hypertrophy. Systolic function is mildly to moderately decreased with an ejection fraction of 40-45%. Mitral Valve: There is mild to moderate regurgitation with a centrally directed and a posteriorly directed jet. There is no evidence of mitral valve stenosis. Tricuspid Valve: There is moderate regurgitation. The tricuspid valve regurgitation jet is eccentric. There is no evidence of tricuspid valve stenosis. STRESS: No results found. HOLTER: No results found. CARDIAC CATH: No results found. CAROTID: No results found. CXR: X-ray chest 1 view Result Date: 09/27/2023 Single view chest History:sob Difficulty breathing, shortness of breath Comparison: 09/22/2023 Findings: Single portable view of the chest. Stable cardia mediastinal silhouette. Right jugular catheter stable. Mild vascular congestion and edema and small pleural effusions, stable. Impression: No significant interval change. Finalized by Krystal Anderson MD on 09/27/2023 10:45 AM X-ray chest 1 view Result Date: 09/22/2023 Procedure: Chest x-ray performed Number of views:1 History:Shortness of breath Comparison:09/21/2023 Impression: 1. Tubes and lines are stable. Congestion and effusions are present. These are slightly increased. The cardiac silhouette remains enlarged. There is no pneumothorax. Finalized by Jose Tinoco MD on 09/22/2023 1:32 PM X-ray chest 1 view Result Date: 09/21/2023 HISTORY AND/OR TECH NOTES line placement PROCEDURE AP chest at 10:32 AM COMPARISON September 20 FINDINGS Right central line placement to the mid SVC No visible pneumothorax There is cardiomediastinal prominence with increased perihilar congestion and granular opacity There is increase in confluent opacity in left greater than right lung base Probable small effusions IMPRESSION: Right central line placement mid SVC without visible pneumothorax Worsening congestive change and probable edema and atelectasis left worse than right with trace effusions Suggest follow-up imaging to document clearing and normalization when appropriate ----- Finalized by Charlie Mendoza MD on 09/21/2023 10:45 AM X-ray chest 1 view Result Date: 09/20/2023 Single view chest XR CHEST 1 VW History: weakness Comparison: September 03 Impression: * No consolidation or pleural fluid. No acute findings. Moderate cardiomegaly Finalized by Watson Ceja MD on 09/20/2023 1:42 AM X-ray chest 1 view Result Date: 09/03/2023 XR CHEST 1 VW CLINICAL INFORMATION: Shortness of breath, evaluate for fluid overload. COMPARISON: 02/08/21. IMPRESSION: * Mild vascular congestion with midlung and basilar atelectatic changes. Trace effusions. Mild cardiomegaly. Finalized by Tian Jones MD on 09/03/2023 2:25 PM TELEMETRY: Atrial fibrillation with rates in the 100-120s PHYSICAL EXAM Admission Weight: Weight: 131.8 kg (290 lb 9.1 oz) I/O last 3 completed shifts: In: 1536.7 [I.V.:452.1; IV Piggyback:1084.6] Out: 5635 [Urine:5635] Weight change: Wt Readings from Last 3 Encounters: 09/27/23 122.9 kg (270 lb 15.1 oz) 09/19/23 132 kg (291 lb) 09/05/23 114.3 kg (252 lb) Vitals: Vitals: 09/27/23 2200 09/27/23 2300 09/28/23 0000 09/28/23 0051 BP: 96/66 101/55 99/67 101/58 Pulse: 114 120 110 106 Resp: 22 (!) 26 17 16 Temp: 37 C (98.6 F) TempSrc: Oral SpO2: 97% 98% 97% 98% Weight: Height: Admit Weight Weight: 131.8 kg (290 lb 9.1 oz) Last 3 Weights Last 3 Weight Readings 09/26/23 0500 09/27/23 0200 09/27/23 0447 Weight: 124.9 kg (275 lb 5.7 oz) 122.9 kg (270 lb 15.1 oz) 122.9 kg (270 lb 15.1 oz) Body mass index is 45.09 kg/m . INTAKE/OUTPUT I/O last 3 completed shifts: In: 1536.7 [I.V.:452.1; IV Piggyback:1084.6] Out: 5635 [Urine:5635] Intake/Output Summary (Last 24 hours) at 09/28/2023 0147 Last data filed at 09/28/2023 0000 Gross per 24 hour Intake 1536.68 ml Output 341286 ml Net -068939.32 ml General appearance: In no acute distress Neck: No JVD, neck supple, trachea midline Lungs: Clear to ausculation bilaterally, no use of accessory muscles Heart:: Irregularly irregular with normal S1 and S2, no murmurs and no gallops. Extremities: ++ edema ASSESSMENT Persistent atrial fibrillation with RVR, anticoagulation currently on hold given acute anemia/thrombocytopenia, was on Coumadin at home History of atrial flutter status post RFA 03/20/2021 Acute on Chronic systolic heart failure with EF of 40-45% per TTE 09/04/2023 Nonobstructive CAD per [facility] Acute hypoxemic respiratory failure secondary to #2 BRANDEE on CKD initiated on hemodialysis 09/21/2023 which was held 09/25/2023 given good response to diuresis Anemia of chronic disease, hemoglobin increased to 8.1 Thrombocytopenia, hematology following, concern for ITP GI bleed w/ maroon stools, GI following Dysphagia PLAN Patient's rates have improved and have been reasonably controlled with oral digoxin. Have given another dose about 2 hours ago in her rates are in the low 100s and her blood pressure has been tolerating. Continue Lopressor as tolerated. Would hold off on Cardizem drip for rate control and future given reduced LV function. No longer requiring phenylephrine. Anticoagulation currently on hold anemia/thrombocytopenia. Fluid management per Nephrology. Will continue to follow. AMRITA LIRA PA-C This note was completed using a voice workforce management manager system. Every effort was made to ensure accuracy. However, inadvertent computerized workforce management manager errors may be present. Amrita Lira PA-C 09/28/23 0229 [facility] I have personally performed a face to face diagnostic evaluation on this patient. I have reviewed the note authored by the advance practice provider/resident/fellow and agree with the assessment and plan. My findings are as follows. Subjective: 68 year old patient seen and examined by me at the request of the admitting team; medical records reviewed. Discussed with ICU nurse no new changes from a CV standpoint Objective: BP (!) 130/102 Pulse 102 Temp 37 C (98.6 F) (Oral) Resp 25 Ht 165.1 cm (5' 5 ) Wt 122.9 kg (270 lb 15.1 oz) SpO2 98% BMI 45.09 kg/m General appearance: Encephalopathic, in no acute distress Lungs: Clear to ausculation bilaterally, no use of accessory muscles. 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[place] coronary arteries without angina pectoris Acute respiratory failure with hypoxia Acute kidney injury on chronic kidney disease initiated on hemodialysis 09/21/2023 Anemia of chronic disease Thrombocytopenia with concern for acute on chronic ITP Suspect GI bleed Atrial fibrillation with RVR in the setting of anemia and acute kidney injury and respiratory failure Digoxin can be given at renal dosing Anticoagulation being held due to anemia and thrombocytopenia Volume management per Nephrology Maintain telemetry and optimize electrolytes Will continue to follow and monitor closely Thank you Jluis Tam DO, FACC, FACOI This note was completed using a voice workforce management manager system. Every effort was made to ensure accuracy. However, inadvertent computerized workforce management manager errors may be present. Images from the original note were not included. Nephrology Daily Progress Note INTERVAL HISTORY/History of present illness: Patient is sleepy and lethargic this morning. ABGs from this morning showed no evidence of hypercarbia PROBLEM LIST: Acute on chronic renal failure stage 4 with serum creatinine of 1.8 mg/dL in 2020, Renal ultrasound from 09/04/2023 showing right kidney 10.8 cm, left kidney 10.9 cm, no hydronephrosis noted. The urinalysis revealed more than 720 RBC and 185 WBC per high-power field, urine protein creatinine ratio was 16.8, FENA was more than 2%, TERRANCE, anti-GBM and vasculitis profile were negative, serum complements were within normal, serum protein electrophoresis unremarkable Shock Acute respiratory failure with bilateral pulmonary infiltrate Atrial fibrillation with history of ablation on chronic anticoagulation Diabetes mellitus type 2 Coronary artery disease, cardiac catheterization in 1999 revealed proximal LAD to mid LAD had 50% stenosis, the left circumflex had 50% proximal to mid lesion, the right coronary artery had 65% ostial to mid lesion Obesity Chronic systolic congestive heart failure Injury to the back Tonsillectomy Myringotomy tube VITAL SIGNS TREND: Vitals: 09/27/23 0800 09/27/23 0900 09/27/23 1000 09/27/23 1100 BP: 112/73 112/69 99/69 105/70 Pulse: 117 113 (!) 124 114 Resp: 21 (!) 29 16 (!) 27 Temp: TempSrc: SpO2: 100% 100% 100% 100% Weight: Height: INTAKE/OUTPUT: Intake/Output Summary (Last 24 hours) at 09/27/2023 1208 Last data filed at 09/27/2023 1033 Gross per 24 hour Intake 1371.97 ml Output 3085 ml Net -1713.03 ml I/O this shift: In: 203.5 [I.V.:101.2; IV Piggyback:102.3] Out: 175 [Urine:175] WEIGHT: Wt Readings from Last 3 Encounters: 09/27/23 122.9 kg (270 lb 15.1 oz) 09/19/23 132 kg (291 lb) 09/05/23 114.3 kg (252 lb) bumetanide, 3 mg, intravenous, BID cefTRIAXone (ROCEPHIN) IV, 1,000 mg, intravenous, Q24H darbepoetin stefania (ARANESP) injection, 100 mcg, subcutaneous, Weekly folic acid, 1 mg, oral, Daily insulin lispro, 2-10 Units, subcutaneous, With meals and nightly iron sucrose, 200 mg, intravenous, Every Other Day metOLazone, 10 mg, oral, Daily metoprolol tartrate, 50 mg, oral, BID midodrine, 10 mg, oral, Q6H pantoprazole, 40 mg, oral, QAM AC phenylephrine, , , potassium chloride, 20 mEq, oral, Q6H sennosides-docusate sodium, 2 tablet, oral, Nightly sevelamer, 800 mg, oral, TID with meals sodium chloride, 10 mL, intravenous, Q96H sodium chloride, 10 mL, intravenous, Q96H sodium chloride, 10 mL, intravenous, Q8H AND sodium citrate, 2 mL, intravenous, Q8H AND sodium chloride, 10 mL, intravenous, PRN AND sodium chloride, 10 mL, intravenous, PRN AND sodium citrate, 2 mL, intravenous, PRN sodium chloride, 3 mL, intravenous, Q12H sodium citrate, 2 mL, intravenous, Q96H sodium citrate, 2 mL, intravenous, Q96H dextrose 5 % in water, 100 mL/hr phenylephrine (EDMOND-SYNEPHRINE) 100 mg in sodium chloride 0.9 % 250 mL (0.4 mg/mL) infusion, 0.5-2.5 mcg/kg/min, Last Rate: 0.3 mcg/kg/min (09/27/23 1033) sodium chloride 0.9 %, 10 mL/hr sodium chloride 0.9 %, 10 mL/hr, Last Rate: Stopped (09/25/23 0130) sodium chloride 0.9 %, 10 mL/hr, Last Rate: Stopped (09/26/232106) sodium chloride 0.9 %, 20 mL/hr, Last Rate: Stopped (09/27/23 0623) sodium chloride 0.9 %, 250 mL sodium chloride 0.9 %, 250 mL PHYSICAL EXAM: Blood pressure 105/70, pulse 114, temperature 37.1 C (98.7 F), temperature source Axillary, resp. rate (!) 27, height 165.1 cm (5' 5 ), weight 122.9 kg (270 lb 15.1 oz), SpO2 100%. Temp: [36.5 C (97.7 F)-37.1 C (98.8 F)] 37.1 C (98.7 F) Pulse: [98-150] 114 Resp: [14-31] 27 BP: (64-124)/(45-86) 105/70 SpO2: [81 %-100 %] 100 % O2 Device: Nasal cannula O2 Flow Rate (L/min): [2 L/min-4 L/min] 4 L/min General appearance: Sleepy. HEENT: no JVD, no carotid bruits, no lymphadenopathy. Cardiovascular: normal S1-S2 Respiratory: Gastrointestinal: soft, no tenderness, no guarding, positive bowel sounds Musculoskeletal: 2+ edema Skin : No Rash. Neuro: Sleepy LABORATORY EVALUATION: Results from last 7 days Lab Units 09/27/2331109/26/23 1927 09/26/23 03009/25/2331409/24/2342709/23/23211 SODIUM mmol/L 146 -- 144 142 142 138 POTASSIUM mmol/L 3.7 3.5 3.4* 3.3* 3.5 3.9 CHLORIDE mmol/L 104 -- 103 102 103 101 CO2 mmol/L -- BUN mg/dL 85* -- 78* 68* 62* 54* CREATININE mg/dL 3.54* -- 3.66* 3.79* 4.11* 4.16* CALCIUM mg/dL 8.6 -- 8.1* 8.0* 7.7* 7.7* MAGNESIUM mg/dL 2.1 -- 2.2 2.1 2.1 2.2 PHOSPHORUS mg/dL 4.6 -- 5.4* 5.7* 5.4* 5.5* Results from last 7 days Lab Units 09/27/2331109/26/23 2350 09/26/23 03009/25/2331409/24/23 1430 09/24/2342709/23/23211 WBC X10E9/L 18.7* -- 11.3* 10.5 -- 10.1 8.5 HEMOGLOBIN g/dL 8.1* 7.4* 7.7* 7.9* 8.1* 8.4* 8.2* HEMATOCRIT % 24.8* 23.0* 23.4* 24.1* 24.3* 25.5* 24.9* PLATELETS X10E9/L 69* -- 36* 37* -- 37* 38* Results from last 7 days Lab Units 09/27/2331109/25/2331409/24/2342709/23/23 02109/20/23 1304 TOTAL PROTEIN g/dL 6.3 6.2 6.0 6.0 5.6* ALBUMIN g/dL 3.7 3.7 3.4 3.7 2.9* AST U/L 20 23 30 -- ALT U/L 18 12 13 16 -- Results from last 7 days Lab Units 09/21/23 0510 CK TOTAL U/L 50 IMPRESSION: Acute kidney injury on chronic kidney disease stage 4 likely due to acute tubular necrosis. Patient is currently hemodialysis dependent initiated on hemodialysis on 09/21/2023. Creatinine is down to 3.5 mg/dL. Nonoliguric. Acute hypoxemic respiratory failure with pulmonary edema and pleural effusion. Shock: Off pressors. Patient remained on midodrine. Acute on chronic systolic congestive heart failure decompensation with LV ejection fraction 40-45% along with mild to moderate mitral regurgitation and moderate tricuspid valve regurgitation patient is currently achieving negative balance as desired overall the patient is -9.4 L Anemia of chronic kidney disease. Patient is currently on Aranesp and IV iron. Thrombocytopenia. Haptoglobin was not suppressed. Platelets count is better Hyperphosphatemia patient is currently on Renvela . Phosphorus level is better Metabolic encephalopathy. No evidence of hypercarbia on the ABGs from 09/27/2023. Blood culture from 09/27/2023 is pending. Urine culture is pending Gastrointestinal bleed: GI service is following. Patient is currently on PPI Hypokalemia Plan : Continue with IV Bumex and metolazone Increase midodrine Strict Is&Os Discussed with the patient's family No indication for renal replacement therapy this point Assess the need for hemodialysis tomorrow Replace electrolytes per scale Check ammonia level Ulisses Silver M.D. [facility] Thank you for your consultation and allowing us to participate in the care of Harris Castrejon and please do not hesitate to call us with any questions at: Office: [phone] Office Answering Service: [phone] Please feel free to contact me through [facility] Secure chat during the daytime hours, if no response after 5 minutes then call the answering service. This note was created with the assistance of a speech-recognition program. Although the intention is to generate a document that actually reflects the content of the visit, no guarantees can be provided that every mistake has been identified and corrected by editing. [facility] Gastroenterology/Hepatology Progress Note IDENTIFYING DATA PATIENT: Harris Castrejon ADMIT DATE: 09/20/2023 TIME OF EVALUATION: 09/27/2023 10:35 AM HOSPITAL STAY: LOS: 7 days REASON FOR CONSULT: GIB SUBJECTIVE/INTERVAL HISTORY Harris Castrejon's events from the last 12-24 hours were reviewed. She had persistent a-fib with RVR and hypotension. She resumed phenylephrine and cardizem. Continues to have AMS Family at bedside. No signs of GI bleeding. Last BM was yesterday AM at 4:45 am and only contained a smear of blood. OBJECTIVE MEDICATIONS SCHEDULED: Current Facility-Administered Medications: bumetanide (BUMEX) 3 mg in sodium chloride 0.9 % 50 mL IVPB, 3 mg, intravenous, BID, Vidhit Miguel, DO, Stopped at 09/27/23 1021 calcium gluconate IVPB 1000 mg/50 mL (20 mg/mL premix), 1,000 mg, intravenous, PRN, Stopped at 09/27/23 0619 OR calcium gluconate IVPB 2000 mg/100 mL (20 mg/mL premix), 2,000 mg, intravenous, PRN OR calcium gluconate 3,000 mg in sodium chloride 0.9 % 100 mL IVPB, 3,000 mg, intravenous, PRN, NICOLAS Webb cefTRIAXone (ROCEPHIN) 1,000 mg in sodium chloride 0.9 % 50 mL IVPB-MBP, 1,000 mg, intravenous, Q24H, NICOLAS Lima, Stopped at 09/27/23 0653 darbepoetin stefania-polysorbate (ARANESP) injection 100 mcg, 100 mcg, subcutaneous, Weekly, Vidhit Miguel, DO, 100 mcg at 09/22/23 1348 dextrose (GLUTOSE) 40 % gel 15 g, 15 g, oral, PRN, NICOLAS Webb dextrose 5 % (D5W) infusion, 100 mL/hr, intravenous, Continuous PRN, NICOLAS Webb [COMPLETED] insulin regular (HumuLIN R,NovoLIN R) injection 10 Units, 10 Units, intravenous, Once, 10 Units at 09/20/23 0909 AND dextrose 50 % in water (D50W) 50% solution 25 g, 25 g, intravenous, Once PRN AND dextrose 50 % in water (D50W) 50% solution 50 g, 50 g, intravenous, Once PRN, NICOLAS Webb dextrose 50 % in water (D50W) 50% solution 25 mL, 25 mL, intravenous, PRN, NICOLAS Webb folic acid (FOLVITE) tablet 1 mg, 1 mg, oral, Daily, Keron Stahl, NICOLAS, 1 mg at 09/26/23 0817 glucagon HCL injection 1 mg, 1 mg, intramuscular, PRN, NICOLAS Webb insulin lispro (HumaLOG) injection 2-10 Units, 2-10 Units, subcutaneous, With meals and nightly, NICOLAS Webb, 2 Units at 09/27/23 0856 iron sucrose (VENOFER) IVPB 200 mg/100 mL in sodium chloride 0.9% (CMPD premix), 200 mg, intravenous, Every Other Day, Dede Rivera DO, Stopped at 09/26/23 0834 magnesium sulfate IVPB 2000 mg/50 mL in iso-osmotic water (40 mg/mL premix), 2,000 mg, intravenous, PRN OR magnesium sulfate IVPB 4000 mg/100 mL in iso-osmotic water (40 mg/mL premix), 4,000 mg, intravenous, PRN, NICOLAS Webb metOLazone (ZAROXOLYN) tablet 10 mg, 10 mg, oral, Daily, Lilia Cox MD, 10 mg at 09/26/23 0817 metoprolol (LOPRESSOR) injection 5 mg, 5 mg, intravenous, Q6H PRN, Samanta Wright MD, 5 mg at 09/26/23 2351 metoprolol tartrate (LOPRESSOR) tablet 50 mg, 50 mg, oral, BID, Samanta Wright MD, 50 mg at 09/26/23 2115 midodrine (PROAMATINE) tablet 10 mg, 10 mg, oral, PRN, Vifaridehit Miguel, DO, 10 mg at 09/22/23 0947 midodrine (PROAMATINE) tablet 10 mg, 10 mg, oral, Q6H, Ulisses Silver MD, 10 mg at 09/27/23 0140 pantoprazole (PROTONIX) EC tablet 40 mg, 40 mg, oral, QAM AC, KAVYA Rosario, 40 mg at 09/26/23 0818 phenylephrine (EDMOND-SYNEPHRINE) 10 mg/mL injection - Pyxis Override Pull, , , , phenylephrine (EDMOND-SYNEPHRINE) 100 mg in sodium chloride 0.9 % 250 mL (0.4 mg/mL) infusion, 0.5-2.5 mcg/kg/min, intravenous, Continuous, Danie Reid, CARDIAC CATH TECHNICIAN-CLASS A LINEMAN, Last Rate: 5.6 mL/hr at 09/27/23 1033, 0.3 mcg/kg/min at 09/27/23 1033 potassium chloride (K-TAB,KLOR-CON) CR tablet 20 mEq, 20 mEq, oral, Q6H, Lilia Cox MD, 20 mEq at 09/27/23 0140 sennosides-docusate sodium (SENOKOT-S) 8.6-50 mg 2 tablet, 2 tablet, oral, Nightly, Samanta Wright MD, 2 tablet at 09/26/232025 sevelamer (RENVELA) tablet 800 mg, 800 mg, oral, TID with meals, Dede Gallegosi, DO, 800 mg at 09/26/23 1717 sodium chloride 0.9 % flush 10 mL, 10 mL, intravenous, Q96H, Shiraz Delgado, CARDIAC CATH TECHNICIAN-CLASS A LINEMAN, 10 mL at 09/25/23 1212 sodium chloride 0.9 % flush 10 mL, 10 mL, intravenous, PRN, Shiraz Delgado, CARDIAC CATH TECHNICIAN-CLASS A LINEMAN, 10 mL at 09/21/23 1153 sodium chloride 0.9 % flush 10 mL, 10 mL, intravenous, PRN, Shiraz Delgado, CARDIAC CATH TECHNICIAN-CLASS A LINEMAN, 10 mL at 09/21/23 1500 sodium chloride 0.9 % flush 10 mL, 10 mL, intravenous, Q96H, Shiraz Delgado, CARDIAC CATH TECHNICIAN-CLASS A LINEMAN, 10 mL at 09/25/23 1212 sodium chloride 0.9 % flush 10 mL, 10 mL, intravenous, PRN, Shiraz Delgado, CARDIAC CATH TECHNICIAN-CLASS A LINEMAN, 10 mL at 09/21/23 1153 sodium chloride 0.9 % flush 10 mL, 10 mL, intravenous, PRN, Shiraz Delgado CARDIAC CATH TECHNICIAN-CLASS A LINEMAN, 10 mL at 09/21/23 1500 sodium chloride 0.9 % flush 10 mL, 10 mL, intravenous, Q8H, 10 mL at 09/26/23 1208 AND sodium citrate 4 % (3 mL) flush 2 mL, 2 mL, intravenous, Q8H AND sodium chloride 0.9 % flush 10 mL, 10 mL, intravenous, PRN AND sodium chloride 0.9 % flush 10 mL, 10 mL, intravenous, PRN, 10 mL at 09/26/23 0305 AND sodium citrate 4 % (3 mL) flush 2 mL, 2 mL, intravenous, PRN, Shiraz Delgado CARDIAC CATH TECHNICIAN-CLASS A LINEMAN sodium chloride 0.9 % flush 3 mL, 3 mL, intravenous, Q12H, Tanner Harris MD, 3 mL at 09/27/23 0951 sodium chloride 0.9 % infusion, 10 mL/hr, intravenous, Continuous PRN, Salbador Howell APRN-ALINA sodium chloride 0.9 % infusion, 10 mL/hr, intravenous, Continuous PRN, Salbador Howell APRN-CLASS A LINEMAN, Stopped at 09/25/23 0130 sodium chloride 0.9 % infusion, 10 mL/hr, intravenous, Continuous PRN, Salbador Howell APRN-CLASS A LINEMAN, Stopped at 09/26/23 2107 sodium chloride 0.9 % infusion, 20 mL/hr, intravenous, Continuous PRN, Tanner Harris MD, Stopped at 09/27/23 0623 sodium chloride 0.9 % infusion, 250 mL, hemodialysis, Continuous, Vidhit Miguel, DO sodium chloride 0.9 % infusion, 250 mL, hemodialysis, Continuous, Vidhit Miguel, DO sodium citrate 4 % (3 mL) flush 2 mL, 2 mL, intravenous, Q96H, Shiraz Delgado APRN-CLASS A LINEMAN, 2 mL at 09/25/23 1213 sodium citrate 4 % (3 mL) flush 2 mL, 2 mL, intravenous, PRN, Shiraz Delgado APRN-CLASS A LINEMAN, 2 mL at 09/22/23 1151 sodium citrate 4 % (3 mL) flush 2 mL, 2 mL, intravenous, Q96H, Shiraz Delgado, CARDIAC CATH TECHNICIAN-CLASS A LINEMAN, 2 mL at 09/25/23 1213 sodium citrate 4 % (3 mL) flush 2 mL, 2 mL, intravenous, PRN, Shiraz Delgado, CARDIAC CATH TECHNICIAN-CLASS A LINEMAN, 2 mL at 09/22/23 1150 PRNs: calcium gluconate, 1,000 mg, PRN Or calcium gluconate, 2,000 mg, PRN Or calcium gluconate, 3,000 mg, PRN dextrose, 15 g, PRN dextrose 5 % in water, 100 mL/hr, Continuous PRN dextrose 50 % in water (D50W), 25 g, Once PRN And dextrose 50 % in water (D50W), 50 g, Once PRN dextrose 50 % in water (D50W), 25 mL, PRN glucagon (human recombinant), 1 mg, PRN magnesium sulfate, 2,000 mg, PRN Or magnesium sulfate, 4,000 mg, PRN metoprolol (LOPRESSOR) IV, 5 mg, Q6H PRN midodrine, 10 mg, PRN phenylephrine, , sodium chloride, 10 mL, PRN sodium chloride, 10 mL, PRN sodium chloride, 10 mL, PRN sodium chloride, 10 mL, PRN sodium chloride, 10 mL, PRN And sodium chloride, 10 mL, PRN And sodium citrate, 2 mL, PRN sodium chloride 0.9 %, 10 mL/hr, Continuous PRN sodium chloride 0.9 %, 10 mL/hr, Continuous PRN sodium chloride 0.9 %, 10 mL/hr, Continuous PRN sodium chloride 0.9 %, 20 mL/hr, Continuous PRN sodium citrate, 2 mL, PRN sodium citrate, 2 mL, PRN ALLERGIES: No Known Allergies Physical VITALS: BP 113/83 Pulse 112 Temp 37.1 C (98.7 F) (Axillary) Resp 19 Ht 165.1 cm (5' 5 ) Wt 122.9 kg (270 lb 15.1 oz) SpO2 97% BMI 45.09 kg/m Physical Exam Constitutional: General: She is sleeping. Interventions: Nasal cannula in place. Cardiovascular: Rate and Rhythm: Tachycardia present. Rhythm irregular. Pulmonary: Effort: Pulmonary effort is normal. Skin: Coloration: Skin is not jaundiced. LABS AND IMAGING Results from last 7 days Lab Units 09/27/23 0312 09/26/23 2350 09/26/23 0300 09/25/23 0315 WBC X10E9/L 18.7* -- 11.3* 10.5 HEMOGLOBIN g/dL 8.1* 7.4* 7.7* 7.9* HEMATOCRIT % 24.8* 23.0* 23.4* 24.1* PLATELETS X10E9/L 69* -- 36* 37* Results from last 7 days Lab Units 09/27/23 0312 09/26/23 0300 09/25/23314 PROTIME sec 25.5* 24.3* 20.3* INR 2.3* 2.1* 1.8* Results from last 7 days Lab Units 09/27/23311 POTASSIUM mmol/L 3.7 CHLORIDE mmol/L 104 CO2 mmol/L 27 BUN mg/dL 85* CREATININE mg/dL 3.54* CALCIUM mg/dL 8.6 Results from last 7 days Lab Units 09/27/2331109/25/2331409/24/23 0428 AST U/L 20 19 23 ALT U/L 18 12 13 Component Latest Ref Rng 09/24/2023 Iron 50 - 170 ug/dL 271 (H) Tibc-calc only do not order 250 - 425 ug/dL 312 Iron Saturation 15 - 50 % SATURATION 87 (H) Vitamin B-12 180 - 914 pg/mL 317 Folate >5.8 ng/mL 4.2 (L) Ferritin 11 - 307 ng/mL 150 Legend: (H) High (L) Low Microbiology Results Procedure Component Value Units Date/Time Blood culture #2 [[id number]] Resulted: 09/27/23538 Specimen: Blood, Peripheral Draw Updated: 09/27/23538 Urine culture [[id number]] Resulted: 09/27/23529 Specimen: Urine Updated: 09/27/23537 Blood culture #1 [[id number]] Resulted: 09/27/23431 Specimen: Blood, Peripheral Draw Updated: 09/27/23431 Urine culture [[id number]] Collected: 09/23/232109 Specimen: Urine Updated: 09/24/23 163 Culture NO GROWTH AT <1000 CFU/mL ASSESSMENT AND PLAN Harris Bernice Hessick is a 68 y.o. female with PMH of Afib on Coumadin, hypertension, back injury, obesity and congestive heart failure, admitted for acute kidney injury. We are asked to see her for gastrointestinal bleeding. Gastrointestinal bleeding associated with 2 episodes of maroon stools, Dysphagia -rectal bleeding consistent with hemorrhoidal secondary to acute thrombocytopenia in the face of severe supratherapeutic INR -since platelets have been > 50, no active signs of bleeding, and Hgb is trending up 2. Acute on chronic renal failure -started on HD 09/21/2023 -nephrology following 3. Acute hypoxic respiratory failure -currently on room air -BiPAP PRN, required BiPAP overnight 4. AFib, persistent with RVR and hypotension -was on heparin drip DC'd 09/24 5. 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 6. Normocytic Anemia secondary to chronic illness - Hgb 8.1 (7.7, 7.4) - Iron and Aranesp per Nephrology 7. Folate deficiency -on oral folate PLAN: Continues to be multiple barriers endoscopic evaluation. At present it is her hypotension and continued coagulopathy. It is very reassuring that her bleeding. As platelets have normalized. Continue to suspect intermittent hemorrhoidal bleeding complicated by coagulopathy and thrombocytopenia. If patient continues to have altered mental status, no objection from a GI perspective to place NG. Eventual endoscopic workup with at least EGD would be ideal given her dysphagia and anemia. Timing to be determined. Recommend supportive care, transfusion parameters as spelled out by hematology. We will follow from a distance to determine safety and feasibility of endoscopic workup. Discussed with GI attending [facility] [address] [address] PH: [phone] KAVYA Amos 09/27/23 7167 CRITICAL CARE PROGRESS NOTE Name: Harris Castrejon Age: 68 y.o. Date: 09/27/23 Length of Stay 7 day(s) Assessment & Plan ASSESSMENT: Acute hypoxic respiratory failure requiring BIPAP support, improved. Currently on nasal cannula 4 liters Paroxysmal atrial fibrillation, uncontrolled started on Cardizem gtt overnight and Digoxin Hypotension requiring Edmond synephrine infusion Acute metabolic encephalopathy Patient was reported to be agitated yesterday requiring bilateral mitt restraints. This am patient is obtunded with no eye opening to name, not following commands Acute kidney injury on CKD stage 4 on iHD Hyperphosphatemia on renvela Acute on hronic systolic congestive heart failure with EF 40-45 %, mild to moderate MR and moderate TR Urinary tract infection, day 4 rocephin Leukocytosis, with mildly elevated procalcitonin, afebrile Possible aspiration Supra therapeutic INR, improved Folic acid deficiency Anemia of chronic disease Gastrointestinal bleeding associated with 2 episodes of maroon stools Bleeding suggestive of hemorrhoidal bleeding per GI service. Not currently a candidate for endoscopy due to low platelets and elevated INR Acute on chronic thrombocytopenia, unclear etiology. 4T score 4, intermediate Concern for acute on chronic ITP per hematology Hypothermia on admission, resolved Morbid Obesity, BMI 45 PLAN: Oxygen per nasal cannula to maintain SpO2 >90%, currently on supplemental oxygen 4 liters per nasal cannula ABG now Chest x-ray today CT brain is negative Edmond synephrine infusion to maintain MAP >65 On ProAmatine Cardizem gtt for rate control per cardiology Lopressor 50 mg BID On venofer Continue rocephin Monitor cultures, no growth to date Daily labs Diuresis/iHD per nephrology Urinary catheter for strict I&O Bilateral mitt restraints for safety. Mental status change is not explained by ABG. Chest x-ray showed the same. BUN is increasing. If it continues to increase she may need dialysis. Getting ammonia level. Nutrition: NPO for now Glucose: SSI to keep glucose less than 180 Activity: as tolerated Bowel Regimen: senokot-s GI prophylaxis: Protonix EC DVT prophylaxis: EPCs/ac held due to low Electrolyte replacement:per ICU protocol Plan of care discussed with nursing No family present at the bedside Disposition: ICU Code Status: Full Lines/tubes: PIV right and left forearms 09/20 Right IJ trialysis catheter 09/21 Urinary catheter 09/20 Subjective Vitals and labs reviewed Patient seen and examined at the bedside Obtunded No eye opening to name, not following commands Uncontrolled Afib with RVR overnight requiring Cardizem and Digoxin Hospital Problem: Principal Problem: Acute kidney injury ([facility]) OBJECTIVE Vital Signs Temp: [36.5 C (97.7 F)-37.1 C (98.8 F)] 37.1 C (98.7 F) Pulse: [94-150] 112 Resp: [14-31] 19 BP: (64-124)/(45-86) 113/83 SpO2: [81 %-100 %] 97 % O2 Device: Nasal cannula O2 Flow Rate (L/min): [2 L/min-4 L/min] 4 L/min O2 Device: Nasal cannula Physical Exam General: Well-developed, well-nourished, no apparent distress. Head: Normocephalic, atraumatic. Ears normal, nares patent. Neck: No tracheal deviation, neck supple. Cardiovascular: Irregular rate and rhythm Pulmonary: Symmetrical chest expansion, respirations regular, non-labored Clear to auscultation bilaterally, lung sounds diminished at bases. Abdomen: Soft, nontender, nondistended, obese : clear yellow urine per dasilva catheter Neurological: Obtunded, not following commands, no eye opening to name Skin: Warm, dry Extremities: No cyanosis or clubbing. 2+ peripheral edema. Pulses: 2+ peripheral pulses bilaterally in upper and lower extremities. I/O last 3 completed shifts: In: 1423.5 [P.O.:150; I.V.:381.4; IV Piggyback:892.1] Out: 4695 [Urine:4695] Recent Results (from the past 24 hour(s)) Bedside Glucose *Place/Obtain serum glucose if >500(>600 MRH) per glucometer. Collection Time: 09/26/23 12:12 PM Result Value Ref Range Bedside glucose 149 (H) 65 - 99 mg/dL Bedside Glucose *Place/Obtain serum glucose if >500(>600 MRH) per glucometer. Collection Time: 09/26/23 5:21 PM Result Value Ref Range Bedside glucose 191 (H) 65 - 99 mg/dL Potassium Collection Time: 09/26/23 7:27 PM Result Value Ref Range Potassium, Bld 3.5 3.5 - 5.0 mmol/L Ionized calcium Collection Time: 09/26/23 7:27 PM Result Value Ref Range Calcium, ionized 4.3 (L) 4.5 - 5.3 mg/dL Ionized magnesium Collection Time: 09/26/23 7:27 PM Result Value Ref Range Magnesium, ionized 0.58 0.45 - 0.74 mmol/L Bedside Glucose *Place/Obtain serum glucose if >500(>600 MRH) per glucometer. Collection Time: 09/26/23 7:29 PM Result Value Ref Range Bedside glucose 173 (H) 65 - 99 mg/dL Hemoglobin and hematocrit, blood Collection Time: 09/26/23 11:50 PM Result Value Ref Range Hemoglobin 7.4 (L) 11.7 - 15.5 g/dL Hematocrit 23.0 (L) 35 - 47 % Protime & INR Collection Time: 09/27/23 3:12 AM Result Value Ref Range Protime 25.5 (H) 9.8 - 13.2 sec Inr 2.3 (H) 0.8 - 1.1 CBC auto differential Collection Time: 09/27/23 3:12 AM Result Value Ref Range White Blood Cells 18.7 (H) 4.0 - 11.0 X10E9/L RBC count 2.62 (L) 3.80 - 5.20 X10E12/L Hemoglobin 8.1 (L) 11.7 - 15.5 g/dL Hematocrit 24.8 (L) 35 - 47 % MCV 95 80 - 100 fL MCH 30.8 27 - 34 pg MCHC 32.5 32 - 36 g/dL RDW 19.8 (H) 11.5 - 15.0 % Platelets 69 (L) 150 - 450 X10E9/L MPV 11.1 7 - 12 fL % neutrophils 86.7 % % lymphocytes 5.1 % % monocytes 7.1 % % eosinophils 1.0 % % Basophils 0.1 % Neutrophils Absolute (A) 16.2 (H) 1.5 - 6.6 X10E9/L Lymphocytes Absolute 0.9 (L) 1.0 - 3.5 X10E9/L Monocytes Absolute 1.3 (H) 0 - 0.9 X10E9/L Eosinophils Absolute 0.2 0.0 - 0.4 X10E9/L Basophils Absolute 0.0 0.0 - 0.2 X10E9/L Magnesium Collection Time: 09/27/23 3:12 AM Result Value Ref Range Magnesium 2.1 1.8 - 2.6 mg/dL Phosphorus Collection Time: 12/29/23 3:12 AM Result Value Ref Range Phosphorus 4.6 2.4 - 4.9 mg/dL Procalcitonin Collection Time: 09/27/23 3:12 AM Result Value Ref Range Procalcitonin 0.74 (H) <0.05 ng/mL Ionized calcium Collection Time: 09/27/23 3:12 AM Result Value Ref Range Calcium, ionized 4.4 (L) 4.5 - 5.3 mg/dL Comprehensive metabolic panel Collection Time: 09/27/23 3:12 AM Result Value Ref Range Sodium 146 134 - 146 mmol/L Potassium, Bld 3.7 3.5 - 5.0 mmol/L Chloride 104 98 - 109 mmol/L CO2 27 22 - 32 mmol/L Anion gap 15 5 - 15 mmol/L BUN 85 (H) 5 - 27 mg/dL Creatinine 3.54 (H) 0.40 - 1.00 mg/dL Glucose 142 (H) 65 - 99 mg/dL Calcium 8.6 8.5 - 10.5 mg/dL Total Protein 6.3 6.0 - 8.0 g/dL Albumin 3.7 3.2 - 5.3 g/dL Alkaline Phosphatase 98 39 - 130 U/L AST 20 0 - 41 U/L ALT 18 0 - 31 U/L Total bilirubin 1.2 0.3 - 1.2 mg/dL eGFR (CKD-EPI)non-race dependent 14 (L) >59 ml/min/1.73sq.m Bedside Glucose *Place/Obtain serum glucose if >500(>600 MRH) per glucometer. Collection Time: 09/27/23 8:55 AM Result Value Ref Range Bedside glucose 171 (H) 65 - 99 mg/dL Glucose Results from last 7 days Lab Units 09/27/23 0855 09/27/23 0312 09/26/23 1929 09/26/23 1721 09/26/23 1212 09/26/23 0826 09/26/23 0300 09/25/23 2130 09/25/23 1636 09/25/23 0747 09/25/23 0315 09/24/23 2133 BEDSIDE GLUCOSE mg/dL 171* -- 173* 191* 149* 155* -- 168* 228* 138* -- 133* GLUCOSE mg/dL -- 142* -- -- -- -- 138* -- -- -- 141* -- Microbiology Results Procedure Component Value Units Date/Time Blood culture #2 [[id number]] Resulted: 09/27/23538 Specimen: Blood, Peripheral Draw Updated: 09/27/23538 Urine culture [[id number]] Resulted: 09/27/23529 Specimen: Urine Updated: 09/27/23537 Blood culture #1 [[id number]] Resulted: 09/27/23431 Specimen: Blood, Peripheral Draw Updated: 09/27/23431 Urine culture [[id number]] Collected: 09/23/232109 Specimen: Urine Updated: 09/24/23 163 Culture NO GROWTH AT <1000 CFU/mL No results found. Lines/Drains Hemodialysis Catheter Triple 09/21/23 Right Internal Jugular (Active) Precautions Standard precautions;Hand hygiene;Gloves 09/27/23729 Lumen 1 Blue 09/27/23729 Lumen 1 Status Other (Comment) 09/27/23729 Lumen [address] 09/27/23729 Lumen 2 Red 09/27/23729 Lumen 2 Status Other (Comment) 09/27/23729 Lumen [address] 09/27/23729 Lumen 3 Pigtail 09/27/23729 Lumen 3 Status Blood return noted;Flushed;Infusing;Alcohol sponge cap changed;Connections checked/tightened 09/27/23729 Lumen 3 Pigtail Needleless Cap Change Completed 09/25/23129 Lumen 3 Pigtail Needleless Cap Change Due 09/29/23 09/25/23129 HD Status Citrate Locked 09/27/23729 Site Assessment Clean;Dry;Intact 09/27/23729 Site Condition No complications 09/27/23729 Dressing Type Occlusive;Transparent with CHG gel 09/27/23729 Dressing Status Clean;Dry;Intact 09/27/23729 Dressing Intervention Dressing changed 09/26/23 1729 Line Necessity Dialysis 09/27/23729 Line Necessity Reviewed With nephrology 09/27/23729 Patient tolerance of dressing change Tolerated well 09/27/23729 Central Line Dressing Change Due (Non-Gauze) 10/03/23 09/26/23 1600 Peripheral IV 09/20/23 Right Forearm (Active) Line Status No blood return;Flushed;Infusing;Alcohol sponge cap changed;Connections checked/tightened 09/27/23729 Site Assessment Clean;Dry;Intact 09/27/23729 Dressing Type Occlusive;Transparent 09/27/23729 Dressing Status Clean;Intact;Dry 09/27/23729 Dressing Intervention Initial dressing 09/27/23 0200 Dressing Change Due (Non-Gauze) 09/27/23 09/20/23 0021 Peripheral IV 09/20/23 Anterior;Left Forearm (Active) Line Status No blood return;Saline locked;Flushed;Alcohol sponge cap changed;Connections checked/tightened 09/27/23729 Site Assessment Clean;Dry;Intact 09/27/23729 Dressing Type Occlusive;Transparent 09/27/23729 Dressing Status Clean;Dry;Intact 09/27/23729 Dressing Intervention Initial dressing 09/27/23199 Dressing Change Due (Non-Gauze) 09/27/23 09/20/23 194 Urinary Catheter 09/20/23 (Active) Catheter Status Patent 09/27/23729 Site Assessment Clean;Skin intact 09/27/23729 Collection Container Standard drainage bag/container 09/27/23729 Securement Method Securing device (Describe);Tube rolon;Secured left 09/27/23729 Tamper Evident Seal Intact Yes 09/27/23729 Reason for Continuing Strict I&O in critically ill patient 09/27/23729 Urine Color Yellow/straw 09/27/23729 Urine Appearance Hazy;Sediment 09/27/23729 Output (mL) 175 mL 09/27/23729 I/O last 3 completed shifts: In: 1423.5 [P.O.:150; I.V.:381.4; IV Piggyback:892.1] Out: 4695 [Urine:4695] I/O this shift: In: - Out: 175 [Urine:175] bumetanide, 3 mg, intravenous, BID cefTRIAXone (ROCEPHIN) IV, 1,000 mg, intravenous, Q24H darbepoetin stefania (ARANESP) injection, 100 mcg, subcutaneous, Weekly folic acid, 1 mg, oral, Daily insulin lispro, 2-10 Units, subcutaneous, With meals and nightly iron sucrose, 200 mg, intravenous, Every Other Day metOLazone, 10 mg, oral, Daily metoprolol tartrate, 50 mg, oral, BID midodrine, 10 mg, oral, Q6H pantoprazole, 40 mg, oral, QAM AC phenylephrine, , , potassium chloride, 20 mEq, oral, Q6H sennosides-docusate sodium, 2 tablet, oral, Nightly sevelamer, 800 mg, oral, TID with meals sodium chloride, 10 mL, intravenous, Q96H sodium chloride, 10 mL, intravenous, Q96H sodium chloride, 10 mL, intravenous, Q8H AND sodium citrate, 2 mL, intravenous, Q8H AND sodium chloride, 10 mL, intravenous, PRN AND sodium chloride, 10 mL, intravenous, PRN AND sodium citrate, 2 mL, intravenous, PRN sodium chloride, 3 mL, intravenous, Q12H sodium citrate, 2 mL, intravenous, Q96H sodium citrate, 2 mL, intravenous, Q96H dextrose 5 % in water, 100 mL/hr phenylephrine (EDMOND-SYNEPHRINE) 100 mg in sodium chloride 0.9 % 250 mL (0.4 mg/mL) infusion, 0.5-2.5 mcg/kg/min, Last Rate: 1.1 mcg/kg/min (09/27/23 034) sodium chloride 0.9 %, 10 mL/hr sodium chloride 0.9 %, 10 mL/hr, Last Rate: Stopped (09/25/23 013) sodium chloride 0.9 %, 10 mL/hr, Last Rate: Stopped (09/26/232106) sodium chloride 0.9 %, 20 mL/hr, Last Rate: Stopped (09/27/23 06) sodium chloride 0.9 %, 250 mL sodium chloride 0.9 %, 250 mL SCRIBE STATEMENT Scribed for and in the presence of Dr. Hodgson by Faith GARNERN, RN. Faith Stephens RN on 09/27/2023 9:08 AM PROVIDER STATEMENT I, NANCY HODGSON MD, personally performed the services described in the documentation, as scribed by Faith Stephens RN in my presence, and it is both accurate and complete. Total critical care time with this patient exceeded 33 minutes, includes complex decision making.The patient is at risk for further clinical decompensation. NANCY HODGSON MD, on 09/27/2023 at 1:53 PM [facility] Images from the original note were not included. [facility] Gurpreet Nagy M.D. Steve Mccollum M.D. Ali Raufi, M.D. Megan E Stephan, [facility] Keron Stahl, [facility] Tiffanie Segal, [facility] Rufina Dowd, [facility] JUAN Brown M.D. Feng Jiang, M.D. Jeffrey Muler, M.D. lAfred Adams M.D. Carole Gaviria, [facility] Jenny Calhoun, [facility] Tian Dhaliwal, [facility] Yeny Medrano, [facility] Mendy Rodrigues, [facility] PROGRESS NOTE Subjective: Currently, patient is resting in bed, and son are at bedside. We discussed the findings of her lab work which showed that this is likely acute on chronic thrombocytopenia exacerbated by acute illness and medications. We discussed potential treatment options that will come into play if her thrombocytopenia worsens. No questions at this time. HPI: Harris Castrejon is a 68 y.o. female with a PMHx of atrial fibrillation, HTN, CKD now on dialysis, CHF, and obesity. She presented to [facility] from [facility] with complaints of generalized weakness. She was recently admitted earlier in August and diagnosed with kidney disease, but was not on dialysis. Upon arrival to [place] [facility], she was found to have an INR of 16.6, a creatinine of 6.52, while being hypotensive requiring pressor support. She was transferred to [facility] for further evaluation and management. During her admission, her thrombocytopenia has worsened, nearly dropping 50% in 4-5 days. Hematology has been consulted for this finding. Oncology History No history exists. Objective Physical Examination: Vitals: BP 106/66 Pulse 105 Temp 36.8 C (98.2 F) (Oral) Resp (!) 26 Ht 165.1 cm (5' 5 ) Wt 124.9 kg (275 lb 5.7 oz) SpO2 96% BMI 45.82 kg/m Physical Exam Vitals and nursing note reviewed. Constitutional: General: She is not in acute distress. Appearance: Normal appearance. She is ill-appearing. HENT: Head: Normocephalic and atraumatic. Right Ear: External ear normal. Left Ear: External ear normal. Nose: Nose normal. Mouth/Throat: Mouth: Mucous membranes are moist. Eyes: Conjunctiva/sclera: Conjunctivae normal. Pupils: Pupils are equal, round, and reactive to light. Cardiovascular: Rate and Rhythm: Normal rate and regular rhythm. Pulses: Normal pulses. Heart sounds: Normal heart sounds. No murmur heard. No friction rub. No gallop. Pulmonary: Effort: Pulmonary effort is normal. Breath sounds: Normal breath sounds. Abdominal: General: Abdomen is flat. There is no distension. Palpations: There is no mass. Musculoskeletal: General: Normal range of motion. Cervical back: Normal range of motion and neck supple. Right lower leg: No edema. Left lower leg: No edema. Skin: General: Skin is warm and dry. Coloration: Skin is not jaundiced. Findings: No bruising or rash. Neurological: General: No focal deficit present. Mental Status: She is alert and oriented to person, place, and time. Cranial Nerves: No cranial nerve deficit. Sensory: No sensory deficit. Psychiatric: Mood and Affect: Mood normal. Behavior: Behavior normal. Thought Content: Thought content normal. Judgment: Judgment normal. Recent Labs Recent Results (from the past 24 hour(s)) Bedside Glucose *Place/Obtain serum glucose if >500(>600 MRH) per glucometer. Collection Time: 09/25/23 4:36 PM Result Value Ref Range Bedside glucose 228 (H) 65 - 99 mg/dL Bedside Glucose *Place/Obtain serum glucose if >500(>600 MRH) per glucometer. Collection Time: 09/25/23 9:30 PM Result Value Ref Range Bedside glucose 168 (H) 65 - 99 mg/dL Protime & INR Collection Time: 09/26/23 3:00 AM Result Value Ref Range Protime 24.3 (H) 9.8 - 13.2 sec Inr 2.1 (H) 0.8 - 1.1 CBC auto differential Collection Time: 09/26/23 3:00 AM Result Value Ref Range White Blood Cells 11.3 (H) 4.0 - 11.0 X10E9/L RBC count 2.52 (L) 3.80 - 5.20 X10E12/L Hemoglobin 7.7 (L) 11.7 - 15.5 g/dL Hematocrit 23.4 (L) 35 - 47 % MCV 93 80 - 100 fL MCH 30.6 27 - 34 pg MCHC 32.9 32 - 36 g/dL RDW 19.0 (H) 11.5 - 15.0 % Platelets 36 (L) 150 - 450 X10E9/L MPV 11.0 7 - 12 fL % neutrophils 85.9 % % lymphocytes 5.2 % % monocytes 8.1 % % eosinophils 0.7 % % Basophils 0.1 % Neutrophils Absolute (A) 9.7 (H) 1.5 - 6.6 X10E9/L Lymphocytes Absolute 0.6 (L) 1.0 - 3.5 X10E9/L Monocytes Absolute 0.9 0 - 0.9 X10E9/L Eosinophils Absolute 0.1 0.0 - 0.4 X10E9/L Basophils Absolute 0.0 0.0 - 0.2 X10E9/L Magnesium Collection Time: 09/26/23 3:00 AM Result Value Ref Range Magnesium 2.2 1.8 - 2.6 mg/dL Phosphorus Collection Time: 09/26/23 3:00 AM Result Value Ref Range Phosphorus 5.4 (H) 2.4 - 4.9 mg/dL Heparin PF4 AB Collection Time: 09/26/23 3:00 AM Result Value Ref Range Heparin pf4 antibody (hit) 0.113 <0.4 OD Basic Metabolic Panel Collection Time: 09/26/23 3:00 AM Result Value Ref Range Sodium 144 134 - 146 mmol/L Potassium, Bld 3.4 (L) 3.5 - 5.0 mmol/L Chloride 103 98 - 109 mmol/L CO2 24 22 - 32 mmol/L Anion gap 17 (H) 5 - 15 mmol/L BUN 78 (H) 5 - 27 mg/dL Creatinine 3.66 (H) 0.40 - 1.00 mg/dL Glucose 138 (H) 65 - 99 mg/dL Calcium 8.1 (L) 8.5 - 10.5 mg/dL eGFR (CKD-EPI)non-race dependent 13 (L) >59 ml/min/1.73sq.m Bedside Glucose *Place/Obtain serum glucose if >500(>600 MRH) per glucometer. Collection Time: 09/26/23 8:26 AM Result Value Ref Range Bedside glucose 155 (H) 65 - 99 mg/dL Bedside Glucose *Place/Obtain serum glucose if >500(>600 MRH) per glucometer. Collection Time: 09/26/23 12:12 PM Result Value Ref Range Bedside glucose 149 (H) 65 - 99 mg/dL Inpatient scheduled medications: Current Facility-Administered Medications: bumetanide (BUMEX) 3 mg in sodium chloride 0.9 % 50 mL IVPB, 3 mg, intravenous, BID, Viricardo Gallegosi, DO, Stopped at 09/26/23 0912 calcium gluconate IVPB 1000 mg/50 mL (20 mg/mL premix), 1,000 mg, intravenous, PRN OR calcium gluconate IVPB 2000 mg/100 mL (20 mg/mL premix), 2,000 mg, intravenous, PRN OR calcium gluconate 3,000 mg in sodium chloride 0.9 % 100 mL IVPB, 3,000 mg, intravenous, PRN, NICOLAS Webb cefTRIAXone (ROCEPHIN) 1,000 mg in sodium chloride 0.9 % 50 mL IVPB-MBP, 1,000 mg, intravenous, Q24H, NICOLAS Lima, Stopped at 09/26/23 0632 darbepoetin stefania-polysorbate (ARANESP) injection 100 mcg, 100 mcg, subcutaneous, Weekly, Dede Rivera DO, 100 mcg at 09/22/23 1348 dextrose (GLUTOSE) 40 % gel 15 g, 15 g, oral, PRN, NICOLAS Webb dextrose 5 % (D5W) infusion, 100 mL/hr, intravenous, Continuous PRN, NICOLAS Webb [COMPLETED] insulin regular (HumuLIN R,NovoLIN R) injection 10 Units, 10 Units, intravenous, Once, 10 Units at 09/20/23 0909 AND dextrose 50 % in water (D50W) 50% solution 25 g, 25 g, intravenous, Once PRN AND dextrose 50 % in water (D50W) 50% solution 50 g, 50 g, intravenous, Once PRN, NICOLAS Webb dextrose 50 % in water (D50W) 50% solution 25 mL, 25 mL, intravenous, PRN, NICOLAS Webb folic acid (FOLVITE) tablet 1 mg, 1 mg, oral, Daily, Keron Stahl, NICOLAS, 1 mg at 09/26/23 0817 glucagon HCL injection 1 mg, 1 mg, intramuscular, PRN, NICOLAS Webb insulin lispro (HumaLOG) injection 2-10 Units, 2-10 Units, subcutaneous, With meals and nightly, NICOLAS Webb, 2 Units at 09/26/23 0826 iron sucrose (VENOFER) IVPB 200 mg/100 mL in sodium chloride 0.9% (CMPD premix), 200 mg, intravenous, Every Other Day, Viricardo Miguel, DO, Stopped at 09/26/23 0834 magnesium sulfate IVPB 2000 mg/50 mL in iso-osmotic water (40 mg/mL premix), 2,000 mg, intravenous, PRN OR magnesium sulfate IVPB 4000 mg/100 mL in iso-osmotic water (40 mg/mL premix), 4,000 mg, intravenous, PRN, NICOLAS Webb metOLazone (ZAROXOLYN) tablet 10 mg, 10 mg, oral, Daily, Lilia Cox MD, 10 mg at 09/26/23 0817 metoprolol (LOPRESSOR) injection 5 mg, 5 mg, intravenous, Q6H PRN, Samanta Wright MD, 5 mg at 09/25/23 1533 metoprolol tartrate (LOPRESSOR) tablet 50 mg, 50 mg, oral, BID, Samanta Wright MD, 50 mg at 09/26/23 0818 midodrine (PROAMATINE) tablet 10 mg, 10 mg, oral, PRN, Vidhit Miguel, DO, 10 mg at 09/22/23 0947 midodrine (PROAMATINE) tablet 10 mg, 10 mg, oral, Q6H, Ulisses Silver MD, 10 mg at 09/26/23 1424 pantoprazole (PROTONIX) EC tablet 40 mg, 40 mg, oral, QAM AC, KAVYA Rosario, 40 mg at 09/26/23 0818 potassium chloride (K-TAB,KLOR-CON) CR tablet 20 mEq, 20 mEq, oral, Q6H, Lilai Cox MD, 20 mEq at 09/26/23 1424 sennosides-docusate sodium (SENOKOT-S) 8.6-50 mg 2 tablet, 2 tablet, oral, Nightly, Samanta Wright MD sevelamer (RENVELA) tablet 800 mg, 800 mg, oral, TID with meals, Dede Gallegosi, DO, 800 mg at 09/26/23 1208 sodium chloride 0.9 % flush 10 mL, 10 mL, intravenous, Q96H, Shiraz Danny, CARDIAC CATH TECHNICIAN-[employer], 10 mL at 09/25/23 1212 sodium chloride 0.9 % flush 10 mL, 10 mL, intravenous, PRN, Shiraz Danny, CARDIAC CATH TECHNICIAN-[employer], 10 mL at 09/21/23 1153 sodium chloride 0.9 % flush 10 mL, 10 mL, intravenous, PRN, Shiraz Danny, CARDIAC CATH TECHNICIAN-[employer], 10 mL at 09/21/23 1500 sodium chloride 0.9 % flush 10 mL, 10 mL, intravenous, Q96H, Shiraz Danny, CARDIAC CATH TECHNICIAN-[employer], 10 mL at 09/25/23 1212 sodium chloride 0.9 % flush 10 mL, 10 mL, intravenous, PRN, Shiraz Danny, CARDIAC CATH TECHNICIAN-[employer], 10 mL at 09/21/23 1153 sodium chloride 0.9 % flush 10 mL, 10 mL, intravenous, PRN, Shiraz Danny, CARDIAC CATH TECHNICIAN-[employer], 10 mL at 09/21/23 1500 sodium chloride 0.9 % flush 10 mL, 10 mL, intravenous, Q8H, 10 mL at 09/26/23 1208 AND sodium citrate 4 % (3 mL) flush 2 mL, 2 mL, intravenous, Q8H AND sodium chloride 0.9 % flush 10 mL, 10 mL, intravenous, PRN AND sodium chloride 0.9 % flush 10 mL, 10 mL, intravenous, PRN, 10 mL at 09/26/23 0305 AND sodium citrate 4 % (3 mL) flush 2 mL, 2 mL, intravenous, PRN, Shiraz Delgado, CARDIAC CATH TECHNICIAN-[employer] sodium chloride 0.9 % flush 3 mL, 3 mL, intravenous, Q12H, Tanner Harris MD, 3 mL at 09/26/23 1102 sodium chloride 0.9 % infusion, 10 mL/hr, intravenous, Continuous PRN, Salbador Howell CARDIAC CATH TECHNICIAN-[employer] sodium chloride 0.9 % infusion, 10 mL/hr, intravenous, Continuous PRN, Salbador Howell CARDIAC CATH TECHNICIAN-[employer], Stopped at 09/25/23 0130 sodium chloride 0.9 % infusion, 10 mL/hr, intravenous, Continuous PRN, Salbador Howell CARDIAC CATH TECHNICIAN-[employer], Last Rate: 10 mL/hr at 09/26/23 0635, 10 mL/hr at 09/26/23 0635 sodium chloride 0.9 % infusion, 20 mL/hr, intravenous, Continuous PRN, Tanner Harris MD sodium chloride 0.9 % infusion, 250 mL, hemodialysis, Continuous, Vidhit Miguel, DO sodium chloride 0.9 % infusion, 250 mL, hemodialysis, Continuous, Vidhit Miguel, DO sodium citrate 4 % (3 mL) flush 2 mL, 2 mL, intravenous, Q96H, Shiraz Danny, CARDIAC CATH TECHNICIAN-[employer], 2 mL at 09/25/23 1213 sodium citrate 4 % (3 mL) flush 2 mL, 2 mL, intravenous, PRN, Shiraz Danny, CARDIAC CATH TECHNICIAN-[employer], 2 mL at 09/22/23 1151 sodium citrate 4 % (3 mL) flush 2 mL, 2 mL, intravenous, Q96H, Shiraz Danny, CARDIAC CATH TECHNICIAN-[employer], 2 mL at 09/25/23 1213 sodium citrate 4 % (3 mL) flush 2 mL, 2 mL, intravenous, PRN, Shiraz Delgado, CARDIAC CATH TECHNICIAN-[employer], 2 mL at 09/22/23 1150 Diagnosis Problem list: Patient Active Problem List Diagnosis Cerumen debris on tympanic membrane of both ears Typical atrial flutter (CMS-HCC) Coronary artery disease involving [place] coronary artery of [place] heart without angina pectoris Tachycardia induced cardiomyopathy ([facility]) Type 2 diabetes mellitus with circulatory disorder, without long-term current use of insulin ([facility]) Other hyperlipidemia Paroxysmal atrial fibrillation ([facility]) BRANDEE (acute kidney injury) ([facility]) Hyperkalemia Bilateral lower extremity edema Systolic and diastolic CHF, acute ([facility]) Acute kidney injury ([facility]) Assessment/Plan Impression: #. 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 Baseline appears to be > 100,000. - [id number] normal - PF4 negative - Peripheral smear showed no hemolysis. #. Normocytic Anemia secondary to chronic illness - Hgb 7.7 - Iron and Aranesp per Nephrology #. Acute on Chronic Renal Failure - Creatinine 3.66. - Nephrology following #. Acute hypoxemic respiratory failure. Plan: TTP, HIT ruled out with appropriate lab work. Patient's thrombocytopenia has been present for at least 2 years by our records. This acute worsening is likely due to shock marrow from pressor support, hypotension, hypothermia, as well as consumption from hemorrhoidal bleed. No treatment indicated at this time. Should the patient's PLT count drop below 20,000, could challenge with 2 doses of IVIG and 40mg Dexamethasone x 4 days. Continue supportive care per primary and consulted services. Patient lives in [place] and could follow up with Dr. Barnes if necessary upon discharge. Transfusion Parameters: Hgb < 7 and Plts < 10,000, unless active bleeding transfuse Plts < 20,000 Code Status: Full Code Further medical management of comorbid conditions per primary team and consulting services, appreciate assistance The patient was seen and examined and all plans and orders were agreed upon with the physician on service today, Dr. Nagy. Keron Stahl, CARDIAC CATH TECHNICIAN-[employer] [facility] [address] [place] [address] [facility] Consult Chat is my preferred mode of contact. For after hours (evening, weekends, holidays) Hematology Oncology needs, please call the representative government relations service [phone]. Please ask for the MD representative government relations. September 26, 2023, 3:45 PM Gurpreet Lang MD, personally performed the face to face diagnostic evaluation on this patient. I have reviewed and edited the CHALINO's History, Exam, and MDM as needed and agree with the assessment and plan as written. 68-year-old female who is being evaluated by Hematology for her thrombocytopenia. She was hypotensive at admission requiring pressor support. She has also had hemorrhoidal bleeding in this admission. She has developed BRANDEE on CKD from ATN and is receiving hemodialysis. Patient has had thrombocytopenia 114 k/cmm since January of 2021. It has spontaneously improved intermittently. In this admission platelet counts have dropped to 36 k/cmm. Acute on chronic thrombocytopenia - secondary to shock marrow, acute ITP, folic acid deficiency. PF4 (-). MKEISR17 normal. Folate is low. B12 normal. Ferritin normal. Reticulocyte normal.Haptoglobin is not low. Smear shows no schistocytes or blasts.Normocytic anemia and thrombocytopenia are seen, Fibrinogen normal. PLAN. - TTP,aHUS,DIC,HIT has been ruled out. - Replace folic acid. - The marrow will require some time to recover from the shock state that has resulted in marrow ischemia. - We would recommend starting dexamethasone & IVIg if platelets drop to < 20 k/cmm. - rEPO/Venofer per Nephrology for anemia secondary to hemorrhoidal bleeding/CKD> Gurpreet Nagy MD. Images from the original note were not included. Nephrology Daily Progress Note INTERVAL HISTORY/History of present illness: Patient denies new complaints. She denies any nausea or vomiting. Her breathing is okay PROBLEM LIST: Acute on chronic renal failure stage 4 with serum creatinine of 1.8 mg/dL in 2020, Renal ultrasound from 09/04/2023 showing right kidney 10.8 cm, left kidney 10.9 cm, no hydronephrosis noted. The urinalysis revealed more than 720 RBC and 185 WBC per high-power field, urine protein creatinine ratio was 16.8, FENA was more than 2%, TERRANCE, anti-GBM and vasculitis profile were negative, serum complements were within normal, serum protein electrophoresis unremarkable Shock Acute respiratory failure with bilateral pulmonary infiltrate Atrial fibrillation with history of ablation on chronic anticoagulation Diabetes mellitus type 2 Coronary artery disease, cardiac catheterization in 1999 revealed proximal LAD to mid LAD had 50% stenosis, the left circumflex had 50% proximal to mid lesion, the right coronary artery had 65% ostial to mid lesion Obesity Chronic systolic congestive heart failure Injury to the back Tonsillectomy Myringotomy tube VITAL SIGNS TREND: Vitals: 09/26/23 0800 09/26/23 0900 09/26/23 0930 09/26/23 1000 BP: 104/58 94/61 Pulse: (!) 124 102 101 94 Resp: Temp: TempSrc: SpO2: 94% 94% 94% Weight: Height: INTAKE/OUTPUT: Intake/Output Summary (Last 24 hours) at 09/26/2023 1328 Last data filed at 09/26/2023 0900 Gross per 24 hour Intake 416.92 ml Output 2115 ml Net -1698.08 ml I/O this shift: In: - Out: 300 [Urine:300] WEIGHT: Wt Readings from Last 3 Encounters: 09/26/23 124.9 kg (275 lb 5.7 oz) 09/19/23 132 kg (291 lb) 09/05/23 114.3 kg (252 lb) bumetanide, 3 mg, intravenous, BID cefTRIAXone (ROCEPHIN) IV, 1,000 mg, intravenous, Q24H darbepoetin stefania (ARANESP) injection, 100 mcg, subcutaneous, Weekly folic acid, 1 mg, oral, Daily insulin lispro, 2-10 Units, subcutaneous, With meals and nightly iron sucrose, 200 mg, intravenous, Every Other Day metOLazone, 10 mg, oral, Daily metoprolol tartrate, 50 mg, oral, BID midodrine, 10 mg, oral, TID pantoprazole, 40 mg, oral, QAM AC potassium chloride, 20 mEq, oral, Q6H sennosides-docusate sodium, 2 tablet, oral, Nightly sevelamer, 800 mg, oral, TID with meals sodium chloride, 10 mL, intravenous, Q96H sodium chloride, 10 mL, intravenous, Q96H sodium chloride, 10 mL, intravenous, Q8H AND sodium citrate, 2 mL, intravenous, Q8H AND sodium chloride, 10 mL, intravenous, PRN AND sodium chloride, 10 mL, intravenous, PRN AND sodium citrate, 2 mL, intravenous, PRN sodium chloride, 3 mL, intravenous, Q12H sodium citrate, 2 mL, intravenous, Q96H sodium citrate, 2 mL, intravenous, Q96H sodium zirconium cyclosilicate, 10 g, oral, Daily with lunch dextrose 5 % in water, 100 mL/hr sodium chloride 0.9 %, 10 mL/hr sodium chloride 0.9 %, 10 mL/hr, Last Rate: Stopped (09/25/23 0130) sodium chloride 0.9 %, 10 mL/hr, Last Rate: 10 mL/hr (09/26/23 0635) sodium chloride 0.9 %, 20 mL/hr sodium chloride 0.9 %, 250 mL sodium chloride 0.9 %, 250 mL PHYSICAL EXAM: Blood pressure 94/61, pulse 94, temperature 37 C (98.6 F), temperature source Oral, resp. rate 23, height 165.1 cm (5' 5 ), weight 124.9 kg (275 lb 5.7 oz), SpO2 94%. Temp: [36.8 C (98.2 F)-37.1 C (98.8 F)] 37 C (98.6 F) Pulse: [94-137] 94 Resp: [11-31] 23 BP: (84-127)/(39-88) 94/61 SpO2: [76 %-97 %] 94 % O2 Device: None (Room air) General appearance: alert in no apparent distress. HEENT: no JVD, no carotid bruits, no lymphadenopathy. Cardiovascular: normal S1-S2 Respiratory: Gastrointestinal: soft, no tenderness, no guarding, positive bowel sounds Musculoskeletal: 2+ edema Skin : No Rash. Neuro: AAOX3 , grossly intact. LABORATORY EVALUATION: Results from last 7 days Lab Units 09/26/23 0300 09/25/23 0315 09/24/23 0428 09/23/23 0212 09/22/23 0448 SODIUM mmol/L 144 142 142 138 141 POTASSIUM mmol/L 3.4* 3.3* 3.5 3.9 4.4 CHLORIDE mmol/L 103 102 103 101 102 CO2 mmol/L 24 23 22 24 20* BUN mg/dL 78* 68* 62* 54* 83* CREATININE mg/dL 3.66* 3.79* 4.11* 4.16* 5.70* CALCIUM mg/dL 8.1* 8.0* 7.7* 7.7* 7.0* MAGNESIUM mg/dL 2.2 2.1 2.1 2.2 2.4 PHOSPHORUS mg/dL 5.4* 5.7* 5.4* 5.5* 8.6* Results from last 7 days Lab Units 09/26/23 0300 09/25/23 0315 09/24/23 1430 09/24/23 0428 09/23/23 0212 09/22/23 0448 WBC X10E9/L 11.3* 10.5 -- 10.1 8.5 8.3 HEMOGLOBIN g/dL 7.7* 7.9* 8.1* 8.4* 8.2* 8.5* HEMATOCRIT % 23.4* 24.1* 24.3* 25.5* 24.9* 25.6* PLATELETS X10E9/L 36* 37* -- 37* 38* 45* Results from last 7 days Lab Units 09/25/23 0315 09/24/23 0428 09/23/23 0212 09/20/23 1304 09/19/23 2329 TOTAL PROTEIN g/dL 6.2 6.0 6.0 5.6* 6.4 ALBUMIN g/dL 3.7 3.4 3.7 2.9* 3.2 AST U/L 19 23 30 -- 34 ALT U/L 12 13 16 -- 27 Results from last 7 days Lab Units 09/21/23 0510 09/19/23 2329 CK TOTAL U/L 50 100 IMPRESSION: Acute kidney injury on chronic kidney disease stage 4 likely due to acute tubular necrosis. Patient is currently hemodialysis dependent initiated on hemodialysis on 09/21/2023. Dialysis was held yesterday as patient creatinine was improving and was having good response to diuretics. Acute hypoxemic respiratory failure with pulmonary edema and pleural effusion. Shock: Off pressors. Patient remained on midodrine. Acute on chronic systolic congestive heart failure decompensation with LV ejection fraction 40-45% along with mild to moderate mitral regurgitation and moderate tricuspid valve regurgitation patient is currently achieving negative balance as desired overall the patient is -7.5 L Anemia of chronic kidney disease. Patient is currently on Aranesp and IV iron. Thrombocytopenia. Haptoglobin was not suppressed. Hyperphosphatemia patient is currently on Renvela phosphorus level Metabolic encephalopathy Gastrointestinal bleed: GI service is following. Patient is currently on PPI Hypokalemia Plan : Continue with IV Bumex 3 mg twice a day along with metolazone 10 mg p.o. daily. Continue with midodrine with holding parameters Continue with IV Bumex Continue with metolazone Discontinue Lokelma. Strict Is&Os. Discussed with the patient's family Observe off hemodialysis today. Assess the need for hemodialysis tomorrow Ulisses Silver M.D. [facility] Thank you for your consultation and allowing us to participate in the care of Harris Castrejon and please do not hesitate to call us with any questions at: Office: [phone] Office Answering Service: [phone] Please feel free to contact me through [employer] Consult Secure chat during the daytime hours, if no response after 5 minutes then call the answering service. This note was created with the assistance of a speech-recognition program. Although the intention is to generate a document that actually reflects the content of the visit, no guarantees can be provided that every mistake has been identified and corrected by editing. Name: Harris Castrejon Age: 68 y.o. Date: 09/26/23 Length of Stay: 6 day(s) The patient is to be transferred out of the ICU. Report was called to [facility], Dr. Scott. Critical Care will sign off on transfer. Thank you. EL Ruiz, PA-C [facility] 11:20 AM 09/26/23 KAVYA Rosario 09/26/23 1120 [facility] Gastroenterology/Hepatology Progress Note IDENTIFYING DATA PATIENT: Harris Castrejon ADMIT DATE: 09/20/2023 TIME OF EVALUATION: 09/26/2023 8:52 AM HOSPITAL STAY: LOS: 6 days REASON FOR CONSULT: GIB SUBJECTIVE/INTERVAL HISTORY Harris Castrejon's events from the last 12-24 hours were reviewed. Loose smear of brown/maroon stool noted at 4:45 a.m. today. Hemoglobin 7.7, slowly declining, no blood transfusion has been needed so far. Platelets 36 today, INR is 2.1 Patient sitting up in chair. Denies abdominal pain, N & V. OBJECTIVE MEDICATIONS SCHEDULED: Current Facility-Administered Medications: bumetanide (BUMEX) 3 mg in sodium chloride 0.9 % 50 mL IVPB, 3 mg, intravenous, BID, Vidhit Miguel, DO, Last Rate: 124 mL/hr at 09/26/23 0842, 3 mg at 09/26/23 0842 calcium gluconate IVPB 1000 mg/50 mL (20 mg/mL premix), 1,000 mg, intravenous, PRN OR calcium gluconate IVPB 2000 mg/100 mL (20 mg/mL premix), 2,000 mg, intravenous, PRN OR calcium gluconate 3,000 mg in sodium chloride 0.9 % 100 mL IVPB, 3,000 mg, intravenous, PRN, NICOLAS Webb cefTRIAXone (ROCEPHIN) 1,000 mg in sodium chloride 0.9 % 50 mL IVPB-MBP, 1,000 mg, intravenous, Q24H, NICOLAS Lima, Stopped at 09/26/23 0632 darbepoetin stefania-polysorbate (ARANESP) injection 100 mcg, 100 mcg, subcutaneous, Weekly, Vidhit Miguel, DO, 100 mcg at 09/22/23 1348 dextrose (GLUTOSE) 40 % gel 15 g, 15 g, oral, PRN, NICOLAS Webb dextrose 5 % (D5W) infusion, 100 mL/hr, intravenous, Continuous PRN, NICOLAS Webb [COMPLETED] insulin regular (HumuLIN R,NovoLIN R) injection 10 Units, 10 Units, intravenous, Once, 10 Units at 09/20/23 0909 AND dextrose 50 % in water (D50W) 50% solution 25 g, 25 g, intravenous, Once PRN AND dextrose 50 % in water (D50W) 50% solution 50 g, 50 g, intravenous, Once PRN, NICOLAS Webb dextrose 50 % in water (D50W) 50% solution 25 mL, 25 mL, intravenous, PRN, NICOLAS Webb folic acid (FOLVITE) tablet 1 mg, 1 mg, oral, Daily, Keron Stahl, NICOLAS, 1 mg at 09/26/23 0817 glucagon HCL injection 1 mg, 1 mg, intramuscular, PRN, NICOLAS Webb insulin lispro (HumaLOG) injection 2-10 Units, 2-10 Units, subcutaneous, With meals and nightly, NICOLAS Webb, 2 Units at 09/26/23 0826 iron sucrose (VENOFER) IVPB 200 mg/100 mL in sodium chloride 0.9% (CMPD premix), 200 mg, intravenous, Every Other Day, Vidhit Miguel, DO, Stopped at 09/26/23 0834 magnesium sulfate IVPB 2000 mg/50 mL in iso-osmotic water (40 mg/mL premix), 2,000 mg, intravenous, PRN OR magnesium sulfate IVPB 4000 mg/100 mL in iso-osmotic water (40 mg/mL premix), 4,000 mg, intravenous, PRN, NICOLAS Webb metOLazone (ZAROXOLYN) tablet 10 mg, 10 mg, oral, Daily, Lilia Cox MD, 10 mg at 09/26/23 0817 metoprolol (LOPRESSOR) injection 5 mg, 5 mg, intravenous, Q6H PRN, Samanta Wright MD, 5 mg at 09/25/23 1533 metoprolol tartrate (LOPRESSOR) tablet 50 mg, 50 mg, oral, BID, Samanta Wright MD, 50 mg at 09/26/23 0818 midodrine (PROAMATINE) tablet 10 mg, 10 mg, oral, TID, Vidhit Miguel, DO, 10 mg at 09/26/23 0559 midodrine (PROAMATINE) tablet 10 mg, 10 mg, oral, PRN, Vidhit Miguel, DO, 10 mg at 09/22/23 0947 pantoprazole (PROTONIX) EC tablet 40 mg, 40 mg, oral, QAM AC, KAVYA Rosario, 40 mg at 09/26/23 0818 potassium chloride (K-TAB,KLOR-CON) CR tablet 20 mEq, 20 mEq, oral, Q6H, Lilia Cox MD, 20 mEq at 09/26/23 0817 sennosides-docusate sodium (SENOKOT-S) 8.6-50 mg 2 tablet, 2 tablet, oral, Nightly, Samanta Wright MD sevelamer (RENVELA) tablet 800 mg, 800 mg, oral, TID with meals, Vifaridehit Miguel, DO, 800 mg at 09/26/23 0818 sodium chloride 0.9 % flush 10 mL, 10 mL, intravenous, Q96H, Shiraz Danny, CARDIAC CATH TECHNICIAN-CLASS A LINEMAN, 10 mL at 09/25/23 1212 sodium chloride 0.9 % flush 10 mL, 10 mL, intravenous, PRN, Shiraz Danny, CARDIAC CATH TECHNICIAN-CLASS A LINEMAN, 10 mL at 09/21/23 1153 sodium chloride 0.9 % flush 10 mL, 10 mL, intravenous, PRN, Shiraz Danny, CARDIAC CATH TECHNICIAN-CLASS A LINEMAN, 10 mL at 09/21/23 1500 sodium chloride 0.9 % flush 10 mL, 10 mL, intravenous, Q96H, Shiraz Danny, CARDIAC CATH TECHNICIAN-CLASS A LINEMAN, 10 mL at 09/25/23 1212 sodium chloride 0.9 % flush 10 mL, 10 mL, intravenous, PRN, Shiraz Danny, CARDIAC CATH TECHNICIAN-CLASS A LINEMAN, 10 mL at 09/21/23 1153 sodium chloride 0.9 % flush 10 mL, 10 mL, intravenous, PRN, Shiraz Danny, CARDIAC CATH TECHNICIAN-CLASS A LINEMAN, 10 mL at 09/21/23 1500 sodium chloride 0.9 % flush 10 mL, 10 mL, intravenous, Q8H, 10 mL at 09/26/23 0456 AND sodium citrate 4 % (3 mL) flush 2 mL, 2 mL, intravenous, Q8H AND sodium chloride 0.9 % flush 10 mL, 10 mL, intravenous, PRN AND sodium chloride 0.9 % flush 10 mL, 10 mL, intravenous, PRN, 10 mL at 09/26/23 0305 AND sodium citrate 4 % (3 mL) flush 2 mL, 2 mL, intravenous, PRN, Shiraz Delgado CARDIAC CATH TECHNICIAN-[employer] A [employer]EMAN sodium chloride 0.9 % flush 3 mL, 3 mL, intravenous, Q12H, Tanner Harris MD, 3 mL at 09/25/23 2245 sodium chloride 0.9 % infusion, 10 mL/hr, intravenous, Continuous PRN, Salbador Howell APRN-ALINA sodium chloride 0.9 % infusion, 10 mL/hr, intravenous, Continuous PRN, Salbador Howell APRN-CLASS A LINEMAN, Stopped at 09/25/23 0130 sodium chloride 0.9 % infusion, 10 mL/hr, intravenous, Continuous PRN, Salbador Howell APRN-ALINA, Last Rate: 10 mL/hr at 09/26/23 0635, 10 mL/hr at 09/26/23 0635 sodium chloride 0.9 % infusion, 20 mL/hr, intravenous, Continuous PRN, Tanner Harris MD sodium chloride 0.9 % infusion, 250 mL, hemodialysis, Continuous, Vidhit Miguel, DO sodium chloride 0.9 % infusion, 250 mL, hemodialysis, Continuous, Vidhit Miguel, DO sodium citrate 4 % (3 mL) flush 2 mL, 2 mL, intravenous, Q96H, Shiraz Delgado CARDIAC CATH TECHNICIAN-CLASS A LINEMAN, 2 mL at 09/25/23 1213 sodium citrate 4 % (3 mL) flush 2 mL, 2 mL, intravenous, PRN, Shiraz Delgado, CARDIAC CATH TECHNICIAN-CLASS A LINEMAN, 2 mL at 09/22/23 1151 sodium citrate 4 % (3 mL) flush 2 mL, 2 mL, intravenous, Q96H, Shiraz Delgado, CARDIAC CATH TECHNICIAN-CLASS A LINEMAN, 2 mL at 09/25/23 1213 sodium citrate 4 % (3 mL) flush 2 mL, 2 mL, intravenous, PRN, Shiraz Delgado, CARDIAC CATH TECHNICIAN-CLASS A LINEMAN, 2 mL at 09/22/23 1150 sodium zirconium cyclosilicate (LOKELMA) packet 10 g, 10 g, oral, Daily with lunch, Salbador Howell APRN-CLASS A LINEMAN, 10 g at 09/24/23 1200 PRNs: calcium gluconate, 1,000 mg, PRN Or calcium gluconate, 2,000 mg, PRN Or calcium gluconate, 3,000 mg, PRN dextrose, 15 g, PRN dextrose 5 % in water, 100 mL/hr, Continuous PRN dextrose 50 % in water (D50W), 25 g, Once PRN And dextrose 50 % in water (D50W), 50 g, Once PRN dextrose 50 % in water (D50W), 25 mL, PRN glucagon (human recombinant), 1 mg, PRN magnesium sulfate, 2,000 mg, PRN Or magnesium sulfate, 4,000 mg, PRN metoprolol (LOPRESSOR) IV, 5 mg, Q6H PRN midodrine, 10 mg, PRN sodium chloride, 10 mL, PRN sodium chloride, 10 mL, PRN sodium chloride, 10 mL, PRN sodium chloride, 10 mL, PRN sodium chloride, 10 mL, PRN And sodium chloride, 10 mL, PRN And sodium citrate, 2 mL, PRN sodium chloride 0.9 %, 10 mL/hr, Continuous PRN sodium chloride 0.9 %, 10 mL/hr, Continuous PRN sodium chloride 0.9 %, 10 mL/hr, Continuous PRN sodium chloride 0.9 %, 20 mL/hr, Continuous PRN sodium citrate, 2 mL, PRN sodium citrate, 2 mL, PRN ALLERGIES: No Known Allergies Physical VITALS: BP 96/61 Pulse 108 Temp 36.8 C (98.2 F) (Oral) Resp 22 Ht 165.1 cm (5' 5 ) Wt 124.9 kg (275 lb 5.7 oz) SpO2 97% BMI 45.82 kg/m Physical Exam Constitutional She is oriented to person, place, and time. She appears well-developed and well-nourished. No distress. HENT Head Normocephalic and atraumatic. Eyes: Conjunctivae and EOM are normal. Neck Neck normal. Abdominal: She exhibits no distension. Soft. There is no abdominal tenderness. There is no rebound and no guarding. Neurological She is alert and oriented to person, place, and time. Skin: Skin is warm and dry. Psychiatric: She has a normal mood and affect. LABS AND IMAGING Results from last 7 days Lab Units 09/26/23 0300 09/25/23 0315 09/24/23 1430 09/24/23 0428 WBC X10E9/L 11.3* 10.5 -- 10.1 HEMOGLOBIN g/dL 7.7* 7.9* 8.1* 8.4* HEMATOCRIT % 23.4* 24.1* 24.3* 25.5* PLATELETS X10E9/L 36* 37* -- 37* Results from last 7 days Lab Units 09/26/23 0300 09/25/23 0315 09/24/23 0428 PROTIME sec 24.3* 20.3* 18.2* INR 2.1* 1.8* 1.6* Results from last 7 days Lab Units 09/26/23 0300 POTASSIUM mmol/L 3.4* CHLORIDE mmol/L 103 CO2 mmol/L 24 BUN mg/dL 78* CREATININE mg/dL 3.66* CALCIUM mg/dL 8.1* Results from last 7 days Lab Units 09/25/23 0315 09/24/23 0428 09/23/23 0212 AST U/L 19 23 30 ALT U/L 12 13 16 Microbiology Results Procedure Component Value Units Date/Time Urine culture [[id number]] Collected: 09/23/23 2110 Specimen: Urine Updated: 09/24/23 1633 Culture NO GROWTH AT <1000 CFU/mL Blood culture [[id number]] Collected: 09/19/23 2342 Specimen: Blood Updated: 09/25/23 1029 Culture NO GROWTH 5 DAYS Blood culture [[id number]] Collected: 09/19/23 2329 Specimen: Blood Updated: 09/25/23 1025 Culture NO GROWTH 5 DAYS SARS/FLU A+B/RSV by NAAT/Molecular (M4RT Collection Tube) [[id number]] Collected: 09/19/23 232 Specimen: Nasopharynx Updated: 09/20/23 0029 FLU A PCR Negative FLU B PCR Negative RSV by PCR Negative SARS CoV 2 BY PCR Not Detected ASSESSMENT AND PLAN Harris Castrejon is a 68 y.o. female with PMH of Afib on Coumadin, hypertension, back injury, obesity and congestive heart failure, admitted for acute kidney injury. We are asked to see her for gastrointestinal bleeding. Gastrointestinal bleeding associated with 2 episodes of maroon stools, Dysphagia -hemoglobin 7.7 (7.9, 8.1, 8.4...8.7), slowly declining -platelets 36 -INR 2.1 (>16 on 12/21), no warfarin since admission -fibrin split product elevated, Fibrinogen wnl, Heparin anti-xa, unfractionated 0.64 -Haptoglobin elevated 264 -HIT panel pending 2. Acute on chronic renal failure -started on HD 09/21/2023 -nephrology following 3. Acute hypoxic respiratory failure -currently on room air -BiPAP PRN, required BiPAP overnight 4. AFib -was on heparin drip DC'd 09/24 -HIT panel pending -Hematology following PLAN: Bleeding suggestive of hemorrhoidal bleeding. Not currently a candidate for endoscopy due to thrombocytopenia and elevated INR Empiric PPI Will follow peripherally Discussed with GI attending Nola Reed PA-C [facility] [place] [address] PH: [phone] KAVYA Weiss 09/26/23 1326 Images from the original note were not included. [facility] Progress Note Name: Harris Castrejon Age: 68 y.o. Date: 09/26/23 Length of Stay 6 day(s) ASSESSMENT Acute hypoxic respiratory failure requiring BIPAP support, improved Acute metabolic encephalopathy with agitation. Resolved Acute kidney injury on CKD stage 4 on iHD Acute on chronic systolic congestive heart failure with EF 40-45 %, mild to moderate MR and moderate TR Urinary tract infection Paroxysmal atrial fibrillation Supra therapeutic INR, improved Anemia of chronic disease Thrombocytopenia, unclear etiology. 4T score 4, intermediate Hypothermia on admission, resolved Morbid Obesity, BMI 49.96 PLAN Supplemental O2 for SpO2 >90% iHD/ diuresis per nephrology Last HD tx 09/22/23 Continue rocephin, day 3 Continue scheduled metoprolol 50 mg BID and lopressor 5 mg IV q6h PRN for sustained HR >120 PF 4AB pending Heme/onc following, appreciate recommendations No indication for scope per GI at this time Nutrition: regular, consistent carb 210 Activity: Up to chair DVT prophylaxis: EPC cuffs GI prophylaxis: Protonix Bowel Regimen: senokot-s Glycemic control: SSI Replace electrolytes per protocol LINES/DRAINS/AIRWAYS: Right IJ CVC CODE STATUS: Full DISPOSITION: Stable to transfer out of MICU pending bed availability, Critical Care will sign off upon transfer. *Most recent imaging / lab studies independently reviewed. *Please also note additional orders *Plan of care discussed with bedside RN and Dr. Wright. EL Ruiz, EDC [facility] Critical Care [facility] Please feel free to contact me via Patient Touch. This patient, with a critical illness, requires constant monitoring and titration of care by a Critical Care Web Site Developer or CHALINO. Failure to do so may result in further organ system failure, imminent deterioration, or . 8:16 AM 09/26/23 No acute events reported overnight. Hospital Problem: Principal Problem: Acute kidney injury (CMS-HCC) OBJECTIVE: Lungs: effort normal no respiratory distress no rales decreased breath sounds no wheezes Heart: rate normal Abdomen: soft no distension bowel sounds normal Neuro: alert Vital Signs Temp: [36.6 C (97.9 F)-37.1 C (98.8 F)] 36.8 C (98.2 F) Pulse: [97-137] 108 Resp: [11-31] 22 BP: (84-127)/(39-97) 96/61 SpO2: [76 %-100 %] 97 % O2 Device: None (Room air) O2 Device: None (Room air) Physical Exam Vitals reviewed. Constitutional: General: She is not in acute distress. Appearance: She is morbidly obese. HENT: Head: Normocephalic and atraumatic. Cardiovascular: Rate and Rhythm: Normal rate. Rhythm irregular. Pulmonary: Effort: Pulmonary effort is normal. No respiratory distress. Breath sounds: Examination of the right-lower field reveals decreased breath sounds. Examination of the left-lower field reveals decreased breath sounds. Decreased breath sounds present. No wheezing or rales. Abdominal: General: Bowel sounds are normal. There is no distension. Palpations: Abdomen is soft. Tenderness: There is no abdominal tenderness. Musculoskeletal: Right lower leg: Edema present. Left lower leg: Edema present. Skin: General: Skin is warm and dry. Neurological: General: No focal deficit present. Mental Status: She is alert and oriented to person, place, and time. Patient seen and examined in person and at the bedside. I/O last 3 completed shifts: In: 659.6 [P.O.:200; I.V.:229.5; IV Piggyback:230] Out: 3325 [Urine:3325] Recent Results (from the past 24 hour(s)) Bedside Glucose *Place/Obtain serum glucose if >500(>600 MRH) per glucometer. Collection Time: 09/25/23 4:36 PM Result Value Ref Range Bedside glucose 228 (H) 65 - 99 mg/dL Bedside Glucose *Place/Obtain serum glucose if >500(>600 MRH) per glucometer. Collection Time: 09/25/23 9:30 PM Result Value Ref Range Bedside glucose 168 (H) 65 - 99 mg/dL Protime & INR Collection Time: 09/26/23 3:00 AM Result Value Ref Range Protime 24.3 (H) 9.8 - 13.2 sec Inr 2.1 (H) 0.8 - 1.1 CBC auto differential Collection Time: 09/26/23 3:00 AM Result Value Ref Range White Blood Cells 11.3 (H) 4.0 - 11.0 X10E9/L RBC count 2.52 (L) 3.80 - 5.20 X10E12/L Hemoglobin 7.7 (L) 11.7 - 15.5 g/dL Hematocrit 23.4 (L) 35 - 47 % MCV 93 80 - 100 fL MCH 30.6 27 - 34 pg MCHC 32.9 32 - 36 g/dL RDW 19.0 (H) 11.5 - 15.0 % Platelets 36 (L) 150 - 450 X10E9/L MPV 11.0 7 - 12 fL % neutrophils 85.9 % % lymphocytes 5.2 % % monocytes 8.1 % % eosinophils 0.7 % % Basophils 0.1 % Neutrophils Absolute (A) 9.7 (H) 1.5 - 6.6 X10E9/L Lymphocytes Absolute 0.6 (L) 1.0 - 3.5 X10E9/L Monocytes Absolute 0.9 0 - 0.9 X10E9/L Eosinophils Absolute 0.1 0.0 - 0.4 X10E9/L Basophils Absolute 0.0 0.0 - 0.2 X10E9/L Magnesium Collection Time: 09/26/23 3:00 AM Result Value Ref Range Magnesium 2.2 1.8 - 2.6 mg/dL Phosphorus Collection Time: 09/26/23 3:00 AM Result Value Ref Range Phosphorus 5.4 (H) 2.4 - 4.9 mg/dL Basic Metabolic Panel Collection Time: 09/26/23 3:00 AM Result Value Ref Range Sodium 144 134 - 146 mmol/L Potassium, Bld 3.4 (L) 3.5 - 5.0 mmol/L Chloride 103 98 - 109 mmol/L CO2 24 22 - 32 mmol/L Anion gap 17 (H) 5 - 15 mmol/L BUN 78 (H) 5 - 27 mg/dL Creatinine 3.66 (H) 0.40 - 1.00 mg/dL Glucose 138 (H) 65 - 99 mg/dL Calcium 8.1 (L) 8.5 - 10.5 mg/dL eGFR (CKD-EPI)non-race dependent 13 (L) >59 ml/min/1.73sq.m Glucose Results from last 7 days Lab Units 09/26/23 0300 09/25/23 2130 09/25/23 1636 09/25/23 0747 09/25/23 0315 09/24/23 2133 09/24/23 1740 09/24/23 1557 09/24/23 1157 09/24/23 0754 09/24/23 0428 09/23/23 2142 BEDSIDE GLUCOSE mg/dL -- 168* 228* 138* -- 133* 165* 162* 201* 135* -- 115* GLUCOSE mg/dL 138* -- -- -- 141* -- -- -- -- -- 113* -- Microbiology Results Procedure Component Value Units Date/Time Urine culture [[id number]] Collected: 09/23/23 2110 Specimen: Urine Updated: 09/24/23 1633 Culture NO GROWTH AT <1000 CFU/mL Blood culture [[id number]] Collected: 09/19/23 234 Specimen: Blood Updated: 09/25/23 1029 Culture NO GROWTH 5 DAYS Blood culture [[id number]] Collected: 09/19/232328 Specimen: Blood Updated: 09/25/23 1025 Culture NO GROWTH 5 DAYS SARS/FLU A+B/RSV by NAAT/Molecular (M4RT Collection Tube) [[id number]] Collected: 09/19/232325 Specimen: Nasopharynx Updated: 09/20/2328 FLU A PCR Negative FLU B PCR Negative RSV by PCR Negative SARS CoV 2 BY PCR Not Detected Ventilator Settings Vent Mode: S/T FiO2 (%): 35 % Resp Rate (Set): 8 Insp Time (sec): 1 sec Insp Rise Time (%): 3 % IPAP: 12 EPAP: 6 Invasive Hemodynamic [place] Lines/Drains Hemodialysis Catheter Triple 09/21/23 Right Internal Jugular (Active) Precautions Standard precautions;Hand hygiene;Gloves;Mask;Surgical cap;Sterile gloves;Sterile field 09/26/23 0500 Lumen 1 Blue 09/26/23344 Lumen 1 Status Other (Comment) 09/26/23344 Lumen [address] 09/26/23344 Lumen 2 Red 09/26/23344 Lumen 2 Status Other (Comment) 09/26/23344 Lumen [address] 09/26/23344 Lumen 3 Pigtail 09/26/23344 Lumen 3 Status Infusing;Alcohol sponge cap maintained;Connections checked/tightened 09/26/23344 Lumen 3 Pigtail Needleless Cap Change Completed 09/25/23129 Lumen 3 Pigtail Needleless Cap Change Due 09/29/23 09/25/23 013 HD Status Clamped;Citrate Locked 09/25/23 1533 Site Assessment Other (Comment) 09/26/23629 Site Condition No complications 09/26/23344 Dressing Type Occlusive;Transparent with CHG gel;Securing device 09/26/23344 Dressing Status Clean;Dry;Intact;CHG disk in place 09/26/23344 Dressing Intervention Dressing changed 09/26/23629 Line Necessity Dialysis 09/25/23344 Line Necessity Reviewed With Dr. Cox 09/26/23344 Patient tolerance of dressing change Tolerated well 09/26/23 06 Central Line Dressing Change Due (Non-Gauze) 09/29/23 09/22/23 1215 Peripheral IV 09/20/23 Right Forearm (Active) Line Status Saline locked;Alcohol sponge cap maintained;Connections checked/tightened 09/26/23344 Site Assessment Clean;Dry;Intact 09/26/23344 Dressing Type Occlusive;Transparent 09/26/23344 Dressing Status Clean;Dry;Intact 09/26/23344 Dressing Intervention Initial dressing 09/26/23344 Dressing Change Due (Non-Gauze) 09/27/23 09/20/23 0021 Peripheral IV 09/20/23 Anterior;Left Forearm (Active) Line Status Saline locked;Alcohol sponge cap maintained;Connections checked/tightened 09/26/23344 Site Assessment Clean;Dry;Intact 09/26/23344 Dressing Type Occlusive;Transparent 09/26/23344 Dressing Status Clean;Dry;Intact 09/26/23344 Dressing Intervention Initial dressing 09/26/23344 Dressing Change Due (Non-Gauze) 09/27/23 09/20/23 194 Urinary Catheter 09/20/23 (Active) Catheter Status Patent 09/26/23344 Site Assessment Clean;Skin intact 09/26/23344 Collection Container Standard drainage bag/container 09/26/23344 Securement Method Securing device (Describe);Tube rolon;Secured left 09/26/23344 Tamper Evident Seal Intact Yes 09/26/23344 Reason for Continuing Strict I&O in critically ill patient 09/26/23344 Urine Color Yellow/straw 09/26/23344 Urine Appearance Hazy;Sediment 09/26/23344 Output (mL) 150 mL 09/26/23 0700 I/O last 3 completed shifts: In: 659.6 [P.O.:200; I.V.:229.5; IV Piggyback:230] Out: 3325 [Urine:3325] I/O this shift: In: - Out: 150 [Urine:150] bumetanide, 3 mg, intravenous, BID cefTRIAXone (ROCEPHIN) IV, 1,000 mg, intravenous, Q24H darbepoetin stefania (ARANESP) injection, 100 mcg, subcutaneous, Weekly folic acid, 1 mg, oral, Daily insulin lispro, 2-10 Units, subcutaneous, With meals and nightly iron sucrose, 200 mg, intravenous, Every Other Day metOLazone, 10 mg, oral, Daily metoprolol tartrate, 50 mg, oral, BID midodrine, 10 mg, oral, TID pantoprazole, 40 mg, oral, QAM AC potassium chloride, 20 mEq, oral, Q6H sennosides-docusate sodium, 2 tablet, oral, Nightly sevelamer, 800 mg, oral, TID with meals sodium chloride, 10 mL, intravenous, Q96H sodium chloride, 10 mL, intravenous, Q96H sodium chloride, 10 mL, intravenous, Q8H AND sodium citrate, 2 mL, intravenous, Q8H AND sodium chloride, 10 mL, intravenous, PRN AND sodium chloride, 10 mL, intravenous, PRN AND sodium citrate, 2 mL, intravenous, PRN sodium chloride, 3 mL, intravenous, Q12H sodium citrate, 2 mL, intravenous, Q96H sodium citrate, 2 mL, intravenous, Q96H sodium zirconium cyclosilicate, 10 g, oral, Daily with lunch dextrose 5 % in water, 100 mL/hr sodium chloride 0.9 %, 10 mL/hr sodium chloride 0.9 %, 10 mL/hr, Last Rate: Stopped (09/25/23 0130) sodium chloride 0.9 %, 10 mL/hr, Last Rate: 10 mL/hr (09/26/23 0635) sodium chloride 0.9 %, 20 mL/hr sodium chloride 0.9 %, 250 mL sodium chloride 0.9 %, 250 mL KAVYA Rosario 09/26/23 0955 [facility] Gastroenterology/Hepatology Progress Note SUBJECTIVE/INTERVAL HISTORY: Harris Castrejon's events from the last 12-24 hours were reviewed. Patient denies abdominal pain. Nursing staff reports that bowel movement earlier today was brown with streaks of red blood. REVIEW OF SYSTEMS: Review of Systems MEDICATIONS: SCHEDULED: Current Facility-Administered Medications: bumetanide (BUMEX) 3 mg in sodium chloride 0.9 % 50 mL IVPB, 3 mg, intravenous, BID, Vidhit DO Miguel, Stopped at 09/25/23 0820 calcium gluconate IVPB 1000 mg/50 mL (20 mg/mL premix), 1,000 mg, intravenous, PRN OR calcium gluconate IVPB 2000 mg/100 mL (20 mg/mL premix), 2,000 mg, intravenous, PRN OR calcium gluconate 3,000 mg in sodium chloride 0.9 % 100 mL IVPB, 3,000 mg, intravenous, PRN, NICOLAS Webb cefTRIAXone (ROCEPHIN) 1,000 mg in sodium chloride 0.9 % 50 mL IVPB-MBP, 1,000 mg, intravenous, Q24H, NICOLAS Lima, Stopped at 09/25/23 0632 darbepoetin stefania-polysorbate (ARANESP) injection 100 mcg, 100 mcg, subcutaneous, Weekly, Vidhit Miguel, DO, 100 mcg at 09/22/23 1348 dextrose (GLUTOSE) 40 % gel 15 g, 15 g, oral, PRN, NICOLAS Webb dextrose 5 % (D5W) infusion, 100 mL/hr, intravenous, Continuous PRN, NICOLAS Webb [COMPLETED] insulin regular (HumuLIN R,NovoLIN R) injection 10 Units, 10 Units, intravenous, Once, 10 Units at 09/20/23 0909 AND dextrose 50 % in water (D50W) 50% solution 25 g, 25 g, intravenous, Once PRN AND dextrose 50 % in water (D50W) 50% solution 50 g, 50 g, intravenous, Once PRN, NICOLAS Webb dextrose 50 % in water (D50W) 50% solution 25 mL, 25 mL, intravenous, PRN, NICOLAS Webb famotidine (PEPCID) tablet 20 mg, 20 mg, oral, Q48H, NICOLAS Webb, 20 mg at 09/24/23 0620 folic acid (FOLVITE) tablet 1 mg, 1 mg, oral, Daily, Keron Stahl, NICOLAS, 1 mg at 09/25/23 1207 glucagon HCL injection 1 mg, 1 mg, intramuscular, PRN, NICOLAS Webb insulin lispro (HumaLOG) injection 2-10 Units, 2-10 Units, subcutaneous, With meals and nightly, NICOLAS Webb, 2 Units at 09/24/23 1747 iron sucrose (VENOFER) IVPB 200 mg/100 mL in sodium chloride 0.9% (CMPD premix), 200 mg, intravenous, Every Other Day, Vidhit Miguel, DO, Stopped at 09/24/23 0826 magnesium sulfate IVPB 2000 mg/50 mL in iso-osmotic water (40 mg/mL premix), 2,000 mg, intravenous, PRN OR magnesium sulfate IVPB 4000 mg/100 mL in iso-osmotic water (40 mg/mL premix), 4,000 mg, intravenous, PRN, Salbador Howell APRN-CLASS A LINEMAN metOLazone (ZAROXOLYN) tablet 10 mg, 10 mg, oral, Daily, Lilia Cox MD, 10 mg at 09/25/23 0753 metoprolol (LOPRESSOR) injection 5 mg, 5 mg, intravenous, Q6H PRN, Samanta Wright MD metoprolol tartrate (LOPRESSOR) tablet 50 mg, 50 mg, oral, BID, Samanta Wright MD, 50 mg at 09/25/23 0753 midodrine (PROAMATINE) tablet 10 mg, 10 mg, oral, TID, Vidhit Miguel, DO, 10 mg at 09/24/23 2136 midodrine (PROAMATINE) tablet 10 mg, 10 mg, oral, PRN, Vidhit Miguel, DO, 10 mg at 09/22/23 0947 potassium chloride (K-TAB,KLOR-CON) CR tablet 20 mEq, 20 mEq, oral, Q6H, Lilia Cox MD sennosides-docusate sodium (SENOKOT-S) 8.6-50 mg 2 tablet, 2 tablet, oral, Nightly, Samanta Wright MD sevelamer (RENVELA) tablet 800 mg, 800 mg, oral, TID with meals, Vidhit Miguel, DO, 800 mg at 09/25/23 1207 sodium chloride 0.9 % flush 10 mL, 10 mL, intravenous, Q96H, Shiraz Delgado APRN-[employer] A LINEMAN, 10 mL at 09/25/23 1212 sodium chloride 0.9 % flush 10 mL, 10 mL, intravenous, PRN, Shiraz Delgado APRN-CLASS A LINEMAN, 10 mL at 09/21/23 1153 sodium chloride 0.9 % flush 10 mL, 10 mL, intravenous, PRN, Shiraz Delgado, CARDIAC CATH TECHNICIAN-CLASS A LINEMAN, 10 mL at 09/21/23 1500 sodium chloride 0.9 % flush 10 mL, 10 mL, intravenous, Q96H, Shiraz Danny, CARDIAC CATH TECHNICIAN-CLASS A LINEMAN, 10 mL at 09/25/23 1212 sodium chloride 0.9 % flush 10 mL, 10 mL, intravenous, PRN, Shiraz Danny, CARDIAC CATH TECHNICIAN-[employer], 10 mL at 09/21/23 1153 sodium chloride 0.9 % flush 10 mL, 10 mL, intravenous, PRN, Shiraz Danny, CARDIAC CATH TECHNICIAN-[employer], 10 mL at 09/21/23 1500 sodium chloride 0.9 % flush 10 mL, 10 mL, intravenous, Q8H, 10 mL at 09/25/23 1213 AND sodium citrate 4 % (3 mL) flush 2 mL, 2 mL, intravenous, Q8H AND sodium chloride 0.9 % flush 10 mL, 10 mL, intravenous, PRN AND sodium chloride 0.9 % flush 10 mL, 10 mL, intravenous, PRN, 10 mL at 09/25/23 0315 AND sodium citrate 4 % (3 mL) flush 2 mL, 2 mL, intravenous, PRN, Shiraz Danny, CARDIAC CATH TECHNICIAN-[employer] sodium chloride 0.9 % flush 3 mL, 3 mL, intravenous, Q12H, Tanner Harris MD, 3 mL at 09/25/23 1208 sodium chloride 0.9 % infusion, 10 mL/hr, intravenous, Continuous PRN, Salbador Howell APRN-[employer] sodium chloride 0.9 % infusion, 10 mL/hr, intravenous, Continuous PRN, Salbador Howell APRN-[employer], Stopped at 09/25/23 0130 sodium chloride 0.9 % infusion, 10 mL/hr, intravenous, Continuous PRN, Salbador Howell APRN-[employer], Last Rate: 10 mL/hr at 09/25/23 0600, Rate Verify at 09/25/23 0600 sodium chloride 0.9 % infusion, 20 mL/hr, intravenous, Continuous PRN, Tanner Harris MD sodium chloride 0.9 % infusion, 250 mL, hemodialysis, Continuous, Vidhit Miguel, DO sodium chloride 0.9 % infusion, 250 mL, hemodialysis, Continuous, Vidhit Miguel, DO sodium citrate 4 % (3 mL) flush 2 mL, 2 mL, intravenous, Q96H, Shiraz Delgado, CARDIAC CATH TECHNICIAN-[employer], 2 mL at 09/25/23 1213 sodium citrate 4 % (3 mL) flush 2 mL, 2 mL, intravenous, PRN, Shiraz Delgado, CARDIAC CATH TECHNICIAN-[employer], 2 mL at 09/22/23 1151 sodium citrate 4 % (3 mL) flush 2 mL, 2 mL, intravenous, Q96H, Shiraz Delgado, CARDIAC CATH TECHNICIAN-[employer], 2 mL at 09/25/23 1213 sodium citrate 4 % (3 mL) flush 2 mL, 2 mL, intravenous, PRN, Shiraz Delgado, CARDIAC CATH TECHNICIAN-[employer], 2 mL at 09/22/23 1150 sodium zirconium cyclosilicate (LOKELMA) packet 10 g, 10 g, oral, Daily with lunch, Salbador Howell, CARDIAC CATH TECHNICIAN-[employer], 10 g at 09/24/23 1200 PRNs: calcium gluconate, 1,000 mg, PRN Or calcium gluconate, 2,000 mg, PRN Or calcium gluconate, 3,000 mg, PRN dextrose, 15 g, PRN dextrose 5 % in water, 100 mL/hr, Continuous PRN dextrose 50 % in water (D50W), 25 g, Once PRN And dextrose 50 % in water (D50W), 50 g, Once PRN dextrose 50 % in water (D50W), 25 mL, PRN glucagon (human recombinant), 1 mg, PRN magnesium sulfate, 2,000 mg, PRN Or magnesium sulfate, 4,000 mg, PRN metoprolol (LOPRESSOR) IV, 5 mg, Q6H PRN midodrine, 10 mg, PRN sodium chloride, 10 mL, PRN sodium chloride, 10 mL, PRN sodium chloride, 10 mL, PRN sodium chloride, 10 mL, PRN sodium chloride, 10 mL, PRN And sodium chloride, 10 mL, PRN And sodium citrate, 2 mL, PRN sodium chloride 0.9 %, 10 mL/hr, Continuous PRN sodium chloride 0.9 %, 10 mL/hr, Continuous PRN sodium chloride 0.9 %, 10 mL/hr, Continuous PRN sodium chloride 0.9 %, 20 mL/hr, Continuous PRN sodium citrate, 2 mL, PRN sodium citrate, 2 mL, PRN OBJECTIVE: VITALS: BP 117/76 Pulse 112 Temp 36.6 C (97.9 F) Resp 21 Ht 165.1 cm (5' 5 ) Wt 126.8 kg (279 lb 8.7 oz) SpO2 100% BMI 46.52 kg/m I/O last 3 completed shifts: In: 1262 [P.O.:290; I.V.:583.8; IV Piggyback:388.3] Out: 2630 [Urine:2630] I/O this shift: In: - Out: 605 [Urine:605] Physical Exam Vitals reviewed. Constitutional: General: She is not in acute distress. Eyes: General: No scleral icterus. Cardiovascular: Rate and Rhythm: Normal rate and regular rhythm. Heart sounds: Normal heart sounds. No murmur heard. Pulmonary: Effort: Pulmonary effort is normal. No respiratory distress. Breath sounds: Normal breath sounds. No wheezing or rales. Abdominal: General: Bowel sounds are normal. There is no distension. Palpations: Abdomen is soft. Tenderness: There is no abdominal tenderness. Comments: Obese Neurological: Mental Status: She is alert and oriented to person, place, and time. Psychiatric: Behavior: Behavior normal. LABS AND IMAGING: Recent Results (from the past 24 hour(s)) Reticulocytes Collection Time: 09/24/23 2:30 PM Result Value Ref Range Reticulocyte 1.4 0.4 - 2.2 % Vitamin B12 Collection Time: 09/24/23 2:30 PM Result Value Ref Range Vitamin B-12 317 180 - 914 pg/mL Folate Collection Time: 09/24/23 2:30 PM Result Value Ref Range Folate 4.2 (L) >5.8 ng/mL Iron and TIBC Collection Time: 09/24/23 2:30 PM Result Value Ref Range Iron 271 (H) 50 - 170 ug/dL Tibc-calc only do not order 312 250 - 425 ug/dL Iron Saturation 87 (H) 15 - 50 % SATURATION Ferritin Collection Time: 09/24/23 2:30 PM Result Value Ref Range Ferritin 150 11 - 307 ng/mL Hemoglobin and hematocrit, blood Collection Time: 09/24/23 2:30 PM Result Value Ref Range Hemoglobin 8.1 (L) 11.7 - 15.5 g/dL Hematocrit 24.3 (L) 35 - 47 % Bedside Glucose *Place/Obtain serum glucose if >500(>600 MRH) per glucometer. Collection Time: 09/24/23 3:57 PM Result Value Ref Range Bedside glucose 162 (H) 65 - 99 mg/dL Bedside Glucose *Place/Obtain serum glucose if >500(>600 MRH) per glucometer. Collection Time: 09/24/23 5:40 PM Result Value Ref Range Bedside glucose 165 (H) 65 - 99 mg/dL Bedside Glucose *Place/Obtain serum glucose if >500(>600 MRH) per glucometer. Collection Time: 09/24/23 9:33 PM Result Value Ref Range Bedside glucose 133 (H) 65 - 99 mg/dL Protime & INR Collection Time: 09/25/23 3:15 AM Result Value Ref Range Protime 20.3 (H) 9.8 - 13.2 sec Inr 1.8 (H) 0.8 - 1.1 CBC auto differential Collection Time: 09/25/23 3:15 AM Result Value Ref Range White Blood Cells 10.5 4.0 - 11.0 X10E9/L RBC count 2.59 (L) 3.80 - 5.20 X10E12/L Hemoglobin 7.9 (L) 11.7 - 15.5 g/dL Hematocrit 24.1 (L) 35 - 47 % MCV 93 80 - 100 fL MCH 30.6 27 - 34 pg MCHC 33.0 32 - 36 g/dL RDW 19.4 (H) 11.5 - 15.0 % Platelets 37 (L) 150 - 450 X10E9/L MPV 10.4 7 - 12 fL % neutrophils 87.6 % % lymphocytes 5.0 % % monocytes 7.1 % % eosinophils 0.2 % % Basophils 0.1 % Neutrophils Absolute (A) 9.2 (H) 1.5 - 6.6 X10E9/L Lymphocytes Absolute 0.5 (L) 1.0 - 3.5 X10E9/L Monocytes Absolute 0.8 0 - 0.9 X10E9/L Eosinophils Absolute 0.0 0.0 - 0.4 X10E9/L Basophils Absolute 0.0 0.0 - 0.2 X10E9/L Magnesium Collection Time: 09/25/23 3:15 AM Result Value Ref Range Magnesium 2.1 1.8 - 2.6 mg/dL Phosphorus Collection Time: 09/25/23 3:15 AM Result Value Ref Range Phosphorus 5.7 (H) 2.4 - 4.9 mg/dL Anti XA unfractionated heparin Collection Time: 09/25/23 3:15 AM Result Value Ref Range Heparin anti-xa, unfractionated <0.04 (L) 0.30 - 0.70 IU/mL Comprehensive metabolic panel Collection Time: 09/25/23 3:15 AM Result Value Ref Range Sodium 142 134 - 146 mmol/L Potassium, Bld 3.3 (L) 3.5 - 5.0 mmol/L Chloride 102 98 - 109 mmol/L CO2 23 22 - 32 mmol/L Anion gap 17 (H) 5 - 15 mmol/L BUN 68 (H) 5 - 27 mg/dL Creatinine 3.79 (H) 0.40 - 1.00 mg/dL Glucose 141 (H) 65 - 99 mg/dL Calcium 8.0 (L) 8.5 - 10.5 mg/dL Total Protein 6.2 6.0 - 8.0 g/dL Albumin 3.7 3.2 - 5.3 g/dL Alkaline Phosphatase 77 39 - 130 U/L AST 19 0 - 41 U/L ALT 12 0 - 31 U/L Total bilirubin 1.0 0.3 - 1.2 mg/dL eGFR (CKD-EPI)non-race dependent 13 (L) >59 ml/min/1.73sq.m Bedside Glucose *Place/Obtain serum glucose if >500(>600 MRH) per glucometer. Collection Time: 09/25/23 7:47 AM Result Value Ref Range Bedside glucose 138 (H) 65 - 99 mg/dL Results from last 7 days Lab Units 09/25/23 0315 INR 1.8* Results from last 7 days Lab Units 09/25/23 0315 ALK PHOS U/L 77 ALT U/L 12 AST U/L 19 IMAGING: ASSESSMENT AND PLAN: 1. Bloody stools. Description today by nursing staff is suggestive of hemorrhoidal bleeding. Patient has been known to have hemorrhoids in the past. Bleeding, whatever the cause is certainly aggravated by marked thrombocytopenia. Not a candidate for endoscopy due to low platelet counts. Will reconsider if bleeding continues after normalization of platelets. Continue supportive care, empiric PPI. Images from the original note were not included. Nephrology Daily Progress Note The events of last night reviewed, chart and all new entries , new tests reviewed Impression/Plan: Acute on chronic renal failure stage 4 due to acute tubular necrosis, started on hemodialysis on 09/21/2023, received hemodialysis Saturday, she is responding to diuretics, creatinine is stable, I will hold dialysis Acute hypoxemic respiratory failure with pulmonary congestion and bilateral effusion, , in negative Status post shock, patient is off pressors, on midodrine and stress dose steroid which is being weaned down Acute on chronic systolic congestive heart failure with EF of 40-45%, [id number] MR and moderate TR Anemia, on Aranesp and iron Thrombocytopenia, fibrin split product was elevated, fibrinogen was 324, haptoglobin was not suppressed Hyperphosphatemia, on Renvela Plan Continue diuresis Increase potassium chloride to 20 mEq q.6 hours Interval history, received hemodialysis on Saturday, responding to diuretics, off pressors, Vitals: 09/25/23 0715 09/25/23 0742 09/25/23 0753 09/25/23 0911 BP: 110/74 110/74 109/80 Pulse: (!) 129 (!) 124 (!) 148 (!) 122 Resp: 20 19 16 Temp: 36.6 C (97.9 F) TempSrc: SpO2: 94% 98% 93% Weight: Height: Intake/Output: Intake/Output Summary (Last 24 hours) at 09/25/2023 1001 Last data filed at 09/25/2023 0900 Gross per 24 hour Intake 574.7 ml Output 1825 ml Net -1250.3 ml Physical Exam: General appearance: alert in no acute distress. Head: Normocephalic, without obvious abnormality, atraumatic Eyes: Conjunctivae unremarkable, pupils reactive Neck: No JVD, no carotid bruit, neck supple, trachea midline cardiovascular: Irregular in rate and rhythm Respiratory: Decreased breathing sounds at the bases Gastrointestinal: no tenderness, no guarding, no hepatosplenomegaly could be appreciated. Muscloskeletal: + LE edema, no active arthritis, normal range of movement Neurology: Moves all extremities, alert oriented Skin: no rash, no petechia Psychiatric, no anxiety, no suicidal ideas Lymphatic: no lymphadenopathy, no lymphedema Inpatient Meds: bumetanide, 3 mg, intravenous, BID cefTRIAXone (ROCEPHIN) IV, 1,000 mg, intravenous, Q24H darbepoetin stefania (ARANESP) injection, 100 mcg, subcutaneous, Weekly famotidine, 20 mg, oral, Q48H folic acid, 1 mg, oral, Daily insulin lispro, 2-10 Units, subcutaneous, With meals and nightly iron sucrose, 200 mg, intravenous, Every Other Day metOLazone, 10 mg, oral, Daily metoprolol tartrate, 50 mg, oral, BID midodrine, 10 mg, oral, TID potassium chloride, 20 mEq, oral, BID with meals sennosides-docusate sodium, 2 tablet, oral, Nightly sevelamer, 800 mg, oral, TID with meals sodium chloride, 10 mL, intravenous, Q96H sodium chloride, 10 mL, intravenous, Q96H sodium chloride, 10 mL, intravenous, Q8H AND sodium citrate, 2 mL, intravenous, Q8H AND sodium chloride, 10 mL, intravenous, PRN AND sodium chloride, 10 mL, intravenous, PRN AND sodium citrate, 2 mL, intravenous, PRN sodium chloride, 3 mL, intravenous, Q12H sodium citrate, 2 mL, intravenous, Q96H sodium citrate, 2 mL, intravenous, Q96H sodium zirconium cyclosilicate, 10 g, oral, Daily with lunch dextrose 5 % in water, 100 mL/hr sodium chloride 0.9 %, 10 mL/hr sodium chloride 0.9 %, 10 mL/hr, Last Rate: Stopped (09/25/23 0130) sodium chloride 0.9 %, 10 mL/hr, Last Rate: 10 mL/hr (09/25/23 0600) sodium chloride 0.9 %, 20 mL/hr sodium chloride 0.9 %, 250 mL sodium chloride 0.9 %, 250 mL Nutrition: Dietary Orders (From admission, onward) Start Ordered 09/24/23 1425 Adult nutrition supplements Continuous Question Answer Comment Diet Type or Consistency: Regular Texture Select Supplement: Renal Oral Supplement Supplement Frequency: BID 09/24/23 1424 09/21/23 0939 Adult diet Regular Texture; Consistent Carb 210 grams (1800 kcal); Fluid Restriction 1500 mL Diet effective now Question Answer Comment Diet Type: Regular Texture Carbohydrate Modifiers: Consistent Carb 210 grams (1800 kcal) Fluid Restrictions: Fluid Restriction 1500 mL 09/21/23 0939 Labs: Results from last 7 days Lab Units 09/25/235 09/24/23 0428 09/23/23 0212 09/22/23 0448 09/22/23 0208 09/21/23 0950 09/21/23 0510 SODIUM mmol/L 142 142 138 141 140 < > 141 POTASSIUM mmol/L 3.3* 3.5 3.9 4.4 4.4 < > 5.3* CHLORIDE mmol/L 102 103 101 102 102 < > 104 CO2 mmol/L 20* 18* < > 16* BUN mg/dL 68* 62* 54* 83* -- -- 103* CREATININE mg/dL 3.79* 4.11* 4.16* 5.70* -- -- 6.63* CALCIUM mg/dL 8.0* 7.7* 7.7* 7.0* -- -- 7.0* MAGNESIUM mg/dL 2.1 2.1 2.2 2.4 -- -- 2.6 PHOSPHORUS mg/dL 5.7* 5.4* 5.5* 8.6* -- -- 9.9* < > = values in this interval not displayed. Results from last 7 days Lab Units 09/25/2331409/24/23 1430 09/24/2342709/23/23211 WBC X10E9/L 10.5 -- 10.1 8.5 HEMOGLOBIN g/dL 7.9* 8.1* 8.4* 8.2* HEMATOCRIT % 24.1* 24.3* 25.5* 24.9* PLATELETS X10E9/L 37* -- 37* 38* Results from last 7 days Lab Units 09/25/2331409/24/2342709/23/23211 MAGNESIUM mg/dL 2.1 2.1 2.2 Lab Results Component Value Date CALCIUM 8.0 (L) 09/25/2023 Lab Results Component Value Date IRON 271 (H) 09/24/2023 TIBC 312 09/24/2023 FERRITIN 150 09/24/2023 Problem list Acute on chronic renal failure stage 4 with serum creatinine of 1.8 mg/dL in 2020, Renal ultrasound from 09/04/2023 showing right kidney 10.8 cm, left kidney 10.9 cm, no hydronephrosis noted. The urinalysis revealed more than 720 RBC and 185 WBC per high-power field, urine protein creatinine ratio was 16.8, FENA was more than 2%, TERRANCE, anti-GBM and vasculitis profile were negative, serum complements were within normal, serum protein electrophoresis unremarkable Shock Acute respiratory failure with bilateral pulmonary infiltrate Atrial fibrillation with history of ablation on chronic anticoagulation Diabetes mellitus type 2 Coronary artery disease, cardiac catheterization in 1999 revealed proximal LAD to mid LAD had 50% stenosis, the left circumflex had 50% proximal to mid lesion, the right coronary artery had 65% ostial to mid lesion Obesity Chronic systolic congestive heart failure Injury to the back Tonsillectomy Myringotomy tube LILIA COX MD [facility] ANY QUESTIONS FEEL FREE TO CALL: 1. OFFICE [phone] 2. ANSWERING SERVICE:[phone] This note was created with the assistance of a speech-recognition program. Although the intention is to generate a document that actually reflects the content of the visit, no guarantees can be provided that every mistake has been identified and corrected by editing. CRITICAL CARE PROGRESS NOTE Name: Harris Castrejon Age: 68 y.o. Date: 09/25/23 Length of Stay 5 day(s) Assessment & Plan ASSESSMENT: Acute hypoxic respiratory failure requiring BIPAP support. On BiPAP overnight, and currently on room air Desaturation during iHD yesterday Acute metabolic encephalopathy, agitation. resolved Acute kidney injury on CKD stage 4 on iHD Acute on chronic systolic congestive heart failure with EF 40-45 %, mild to moderate MR and moderate TR Urinary tract infection Paroxysmal atrial fibrillation, uncontrolled. On toprol at home, has been held Supra therapeutic INR, improved Anemia of chronic disease Thrombocytopenia, unclear etiology. 4T score 4, intermediate platelets low; recently within normal FSP 5-20 Heparin PF 4 AB in process Hypothermia on admission, resolved Morbid Obesity, BMI 49.96 PLAN: Oxygen per nasal cannula to maintain SpO2 >90% BiPAP as needed or with sleep Continue scheduled Metoprolol 50 mg BID and will add Lopressor 5 mg IV q 6 hours prn for sustained heart rate greater than 120 Ceftriaxone for UTI Monitor cultures, no growth to date, urine culture no growth Peripheral blood smear in process Heparin PF 4 AB pending On iron supplementation Hematology following Hemodialysis per Nephrology, last 09/22/2025 On lokelma On proamatine Steroid taper in place, stop date 09/25 Daily labs Urinary catheter for strict I&O Nutrition: as tolerated Glucose: monitor to keep glucose less than 180 Activity: up as tolerated Bowel Regimen: 2 BMs 09/23 GI prophylaxis: Pepcid DVT prophylaxis:EPCs Electrolyte replacement:per ICU protocol Plan of care discussed with nursing No family present at the bedside Disposition: ICU Code Status: Full Lines/tubes: PIV left AC 09/19 PIV right forearm 09/20 PIV left forearm 09/20 Right IJ Trialysis catheter 09/21 Indwelling urinary catheter 09/20 Subjective Vitals and labs reviewed Patient seen and evaluated at the bedside No acute events overnight Hospital Problem: Principal Problem: Acute kidney injury (CMS-HCC) OBJECTIVE Vital Signs Temp: [36.5 C (97.7 F)-36.9 C (98.4 F)] 36.6 C (97.9 F) Pulse: [100-150] 148 Resp: [0-24] 19 BP: (90-150)/(60-122) 110/74 SpO2: [89 %-98 %] 98 % O2 Device: Simple mask O2 Flow Rate (L/min): [4 L/min] 4 L/min O2 Device: (S) Simple mask Physical Exam General: Well-developed, well-nourished, no apparent distress. Head: Normocephalic, atraumatic. Ears normal, nares patent. Eyes: conjunctivae normal. Neck: No tracheal deviation, neck supple. Cardiovascular: Irregular rate and rhythm; rate 130-15-s Pulmonary: Symmetrical chest expansion, respirations regular, non-labored. Clear to auscultation bilaterally, lung sounds diminished at bases. Abdomen: Soft, nontender, nondistended., obese. No guarding or rebound tenderness. : clear yellow urine per dasilva catheter Neurological: alert, appropriate Skin: Warm, dry Extremities: 2+ peripheral edema to thighs I/O last 3 completed shifts: In: 1262 [P.O.:290; I.V.:583.8; IV Piggyback:388.3] Out: 2630 [Urine:2630] Recent Results (from the past 24 hour(s)) Bedside Glucose *Place/Obtain serum glucose if >500(>600 MRH) per glucometer. Collection Time: 09/24/23 11:57 AM Result Value Ref Range Bedside glucose 201 (H) 65 - 99 mg/dL Reticulocytes Collection Time: 09/24/23 2:30 PM Result Value Ref Range Reticulocyte 1.4 0.4 - 2.2 % Vitamin B12 Collection Time: 09/24/23 2:30 PM Result Value Ref Range Vitamin B-12 317 180 - 914 pg/mL Folate Collection Time: 09/24/23 2:30 PM Result Value Ref Range Folate 4.2 (L) >5.8 ng/mL Iron and TIBC Collection Time: 09/24/23 2:30 PM Result Value Ref Range Iron 271 (H) 50 - 170 ug/dL Tibc-calc only do not order 312 250 - 425 ug/dL Iron Saturation 87 (H) 15 - 50 % SATURATION Ferritin Collection Time: 09/24/23 2:30 PM Result Value Ref Range Ferritin 150 11 - 307 ng/mL Hemoglobin and hematocrit, blood Collection Time: 09/24/23 2:30 PM Result Value Ref Range Hemoglobin 8.1 (L) 11.7 - 15.5 g/dL Hematocrit 24.3 (L) 35 - 47 % Bedside Glucose *Place/Obtain serum glucose if >500(>600 MRH) per glucometer. Collection Time: 09/24/23 3:57 PM Result Value Ref Range Bedside glucose 162 (H) 65 - 99 mg/dL Bedside Glucose *Place/Obtain serum glucose if >500(>600 MRH) per glucometer. Collection Time: 09/24/23 5:40 PM Result Value Ref Range Bedside glucose 165 (H) 65 - 99 mg/dL Bedside Glucose *Place/Obtain serum glucose if >500(>600 MRH) per glucometer. Collection Time: 09/24/23 9:33 PM Result Value Ref Range Bedside glucose 133 (H) 65 - 99 mg/dL Protime & INR Collection Time: 09/25/23 3:15 AM Result Value Ref Range Protime 20.3 (H) 9.8 - 13.2 sec Inr 1.8 (H) 0.8 - 1.1 CBC auto differential Collection Time: 09/25/23 3:15 AM Result Value Ref Range White Blood Cells 10.5 4.0 - 11.0 X10E9/L RBC count 2.59 (L) 3.80 - 5.20 X10E12/L Hemoglobin 7.9 (L) 11.7 - 15.5 g/dL Hematocrit 24.1 (L) 35 - 47 % MCV 93 80 - 100 fL MCH 30.6 27 - 34 pg MCHC 33.0 32 - 36 g/dL RDW 19.4 (H) 11.5 - 15.0 % Platelets 37 (L) 150 - 450 X10E9/L MPV 10.4 7 - 12 fL % neutrophils 87.6 % % lymphocytes 5.0 % % monocytes 7.1 % % eosinophils 0.2 % % Basophils 0.1 % Neutrophils Absolute (A) 9.2 (H) 1.5 - 6.6 X10E9/L Lymphocytes Absolute 0.5 (L) 1.0 - 3.5 X10E9/L Monocytes Absolute 0.8 0 - 0.9 X10E9/L Eosinophils Absolute 0.0 0.0 - 0.4 X10E9/L Basophils Absolute 0.0 0.0 - 0.2 X10E9/L Magnesium Collection Time: 09/25/23 3:15 AM Result Value Ref Range Magnesium 2.1 1.8 - 2.6 mg/dL Phosphorus Collection Time: 09/25/23 3:15 AM Result Value Ref Range Phosphorus 5.7 (H) 2.4 - 4.9 mg/dL Anti XA unfractionated heparin Collection Time: 09/25/23 3:15 AM Result Value Ref Range Heparin anti-xa, unfractionated <0.04 (L) 0.30 - 0.70 IU/mL Comprehensive metabolic panel Collection Time: 09/25/23 3:15 AM Result Value Ref Range Sodium 142 134 - 146 mmol/L Potassium, Bld 3.3 (L) 3.5 - 5.0 mmol/L Chloride 102 98 - 109 mmol/L CO2 23 22 - 32 mmol/L Anion gap 17 (H) 5 - 15 mmol/L BUN 68 (H) 5 - 27 mg/dL Creatinine 3.79 (H) 0.40 - 1.00 mg/dL Glucose 141 (H) 65 - 99 mg/dL Calcium 8.0 (L) 8.5 - 10.5 mg/dL Total Protein 6.2 6.0 - 8.0 g/dL Albumin 3.7 3.2 - 5.3 g/dL Alkaline Phosphatase 77 39 - 130 U/L AST 19 0 - 41 U/L ALT 12 0 - 31 U/L Total bilirubin 1.0 0.3 - 1.2 mg/dL eGFR (CKD-EPI)non-race dependent 13 (L) >59 ml/min/1.73sq.m Bedside Glucose *Place/Obtain serum glucose if >500(>600 MRH) per glucometer. Collection Time: 09/25/23 7:47 AM Result Value Ref Range Bedside glucose 138 (H) 65 - 99 mg/dL Glucose Results from last 7 days Lab Units 09/25/23 0747 09/25/23 0315 09/24/23 2133 09/24/23 1740 09/24/23 1557 09/24/23 1157 09/24/23 0754 09/24/23 0428 09/23/23 2142 09/23/23 1547 09/23/23 1155 09/23/23 0758 BEDSIDE GLUCOSE mg/dL 138* -- 133* 165* 162* 201* 135* -- 115* 145* 112* 129* GLUCOSE mg/dL -- 141* -- -- -- -- -- 113* -- -- -- -- Microbiology Results Procedure Component Value Units Date/Time Urine culture [[id number]] Collected: 09/23/232109 Specimen: Urine Updated: 09/24/23 1633 Culture NO GROWTH AT <1000 CFU/mL Blood culture [[id number]] Collected: 09/19/232341 Specimen: Blood Updated: 09/24/23 1034 Culture NO GROWTH 4 DAYS Blood culture [[id number]] Collected: 09/19/232328 Specimen: Blood Updated: 09/24/23 1031 Culture NO GROWTH 4 DAYS SARS/FLU A+B/RSV by NAAT/Molecular (M4RT Collection Tube) [[id number]] Collected: 09/19/232325 Specimen: Nasopharynx Updated: 09/20/2328 FLU A PCR Negative FLU B PCR Negative RSV by PCR Negative SARS CoV 2 BY PCR Not Detected X-ray chest 1 view Result Date: 09/22/2023 Procedure: Chest x-ray performed Number of views:1 History:Shortness of breath Comparison:09/21/2023 Impression: 1. Tubes and lines are stable. Congestion and effusions are present. These are slightly increased. The cardiac silhouette remains enlarged. There is no pneumothorax. Finalized by Jose Tinoco MD on 09/22/2023 1:32 PM Ventilator Settings Vent Mode: S/T FiO2 (%): 35 % Resp Rate (Set): 8 Insp Time (sec): 1 sec Insp Rise Time (%): 3 % IPAP: 12 EPAP: 6 Lines/Drains Hemodialysis Catheter Triple 09/21/23 Right Internal Jugular (Active) Precautions Standard precautions;Hand hygiene;Gloves;Mask 09/25/23344 Lumen 1 Blue 09/25/23344 Lumen 1 Status Other (Comment) 09/25/23344 Lumen [address] 09/25/23344 Lumen 2 Red 09/25/23344 Lumen 2 Status Other (Comment) 09/25/23344 Lumen [address] 09/25/23344 Lumen 3 Pigtail 09/25/23344 Lumen 3 Status Infusing;Alcohol sponge cap maintained;Connections checked/tightened 09/25/23344 Lumen 3 Pigtail Needleless Cap Change Completed 09/25/23129 Lumen 3 Pigtail Needleless Cap Change Due 09/29/23 09/25/23129 HD Status Citrate Locked 09/23/23 1600 Site Assessment Clean;Dry;Intact;Sutures intact 09/25/23344 Site Condition No complications 09/25/23344 Dressing Type Occlusive;Transparent with CHG gel;Securing device 09/25/23344 Dressing Status Clean;Dry;Intact;CHG disk in place 09/25/23344 Dressing Intervention Other (Comment) 09/25/23344 Line Necessity Dialysis 09/25/23344 Line Necessity Reviewed With Dr. Cox 09/25/23344 Patient tolerance of dressing change Tolerated well 09/25/23344 Central Line Dressing Change Due (Non-Gauze) 09/29/23 09/22/23 1215 Peripheral IV 09/19/23 Left Antecubital (Active) Line Status Saline locked;Alcohol sponge cap maintained;Connections checked/tightened 09/25/23 034 Site Assessment Clean;Dry;Intact 09/25/23 034 Dressing Type Occlusive;Transparent 09/25/23 034 Dressing Status Clean;Dry;Intact 09/25/23 034 Dressing Intervention Initial dressing 09/25/23344 Dressing Change Due (Non-Gauze) 09/26/23 09/19/23 2312 Peripheral IV 09/20/23 Right Forearm (Active) Line Status Saline locked;Alcohol sponge cap maintained;Connections checked/tightened 09/25/23344 Site Assessment Clean;Dry;Intact 09/25/23344 Dressing Type Occlusive;Transparent 09/25/23344 Dressing Status Clean;Dry;Intact 09/25/23344 Dressing Intervention Initial dressing 09/25/23344 Dressing Change Due (Non-Gauze) 09/27/23 09/20/23 0021 Peripheral IV 09/20/23 Anterior;Left Forearm (Active) Line Status Saline locked;Alcohol sponge cap maintained;Connections checked/tightened 09/25/23344 Site Assessment Clean;Dry;Intact 09/25/23344 Dressing Type Occlusive;Transparent 09/25/23344 Dressing Status Clean;Dry;Intact 09/25/23344 Dressing Intervention Initial dressing 09/25/23344 Dressing Change Due (Non-Gauze) 09/27/23 09/20/23 194 Urinary Catheter 09/20/23 (Active) Catheter Status Patent 09/25/23344 Site Assessment Clean;Skin intact 09/25/23344 Collection Container Standard drainage bag/container 09/25/23344 Securement Method Securing device (Describe);Tube rolon;Secured left 09/25/23344 Tamper Evident Seal Intact Yes 09/25/23344 Reason for Continuing Strict I&O in critically ill patient 09/25/23344 Urine Color Yellow/straw 09/25/23344 Urine Appearance Hazy;Sediment 09/25/23344 Output (mL) 150 mL 09/25/23 0800 I/O last 3 completed shifts: In: 1262 [P.O.:290; I.V.:583.8; IV Piggyback:388.3] Out: 2630 [Urine:2630] I/O this shift: In: - Out: 200 [Urine:200] bumetanide, 3 mg, intravenous, BID cefTRIAXone (ROCEPHIN) IV, 1,000 mg, intravenous, Q24H darbepoetin stefania (ARANESP) injection, 100 mcg, subcutaneous, Weekly famotidine, 20 mg, oral, Q48H hydrocortisone sodium succinate, 50 mg, intravenous, Q12H PAUL insulin lispro, 2-10 Units, subcutaneous, With meals and nightly iron sucrose, 200 mg, intravenous, Every Other Day metOLazone, 10 mg, oral, Daily metoprolol tartrate, 50 mg, oral, BID midodrine, 10 mg, oral, TID potassium chloride, 20 mEq, oral, BID with meals sevelamer, 800 mg, oral, TID with meals sodium chloride, 10 mL, intravenous, Q96H sodium chloride, 10 mL, intravenous, Q96H sodium chloride, 10 mL, intravenous, Q8H AND sodium citrate, 2 mL, intravenous, Q8H AND sodium chloride, 10 mL, intravenous, PRN AND sodium chloride, 10 mL, intravenous, PRN AND sodium citrate, 2 mL, intravenous, PRN sodium chloride, 3 mL, intravenous, Q12H sodium citrate, 2 mL, intravenous, Q96H sodium citrate, 2 mL, intravenous, Q96H sodium zirconium cyclosilicate, 10 g, oral, Daily with lunch dextrose 5 % in water, 100 mL/hr sodium chloride 0.9 %, 10 mL/hr sodium chloride 0.9 %, 10 mL/hr, Last Rate: Stopped (09/25/23 0130) sodium chloride 0.9 %, 10 mL/hr, Last Rate: 10 mL/hr (09/25/23 0600) sodium chloride 0.9 %, 20 mL/hr sodium chloride 0.9 %, 250 mL sodium chloride 0.9 %, 250 mL SCRIBE STATEMENT Scribed for and in the presence of Dr. Wright by Faith PAIZ, RN. Faith Stephens RN on 09/25/2023 8:01 AM PROVIDER STATEMENT I, SAMANTA WRIGHT MD, personally performed the services described in the documentation, as scribed by Faith Stephens RN in my presence, and it is both accurate and complete. - SAMANTA WRIGHT MD, on 09/25/2023 at 8:55 AM Images from the original note were not included. Nephrology Daily Progress Note The events of last night reviewed, chart and all new entries , new tests reviewed Impression/Plan: Acute on chronic renal failure stage 4 due to acute tubular necrosis, started on hemodialysis on 09/21/2023, received hemodialysis Saturday, she is responding to diuretics, creatinine is stable, I will hold dialysis Acute hypoxemic respiratory failure with pulmonary congestion and bilateral effusion, currently on room air Status post shock, patient is off pressors, on midodrine and stress dose steroid which is being weaned down Acute on chronic systolic congestive heart failure with EF of 40-45%, [id number] MR and moderate TR Anemia, on Aranesp and iron Thrombocytopenia, fibrin split product was elevated, fibrinogen was 324, haptoglobin was not suppressed Hyperphosphatemia, on Renvela Plan Continue diuresis Add metolazone 10 mg daily Potassium chloride 20 mEq b.i.d. Interval history, received hemodialysis on Saturday, responding to diuretics, off pressors, on room air Vitals: 09/24/23 0800 09/24/23 0900 09/24/23 0927 09/24/23 1000 BP: 101/80 108/72 103/76 Pulse: (!) 149 (!) 150 (!) 139 101 Resp: 18 21 16 21 Temp: 36.9 C (98.4 F) TempSrc: Oral SpO2: 91% 96% 93% 93% Weight: Height: Intake/Output: Intake/Output Summary (Last 24 hours) at 09/24/2023 1136 Last data filed at 09/24/2023 1000 Gross per 24 hour Intake 1196.37 ml Output 1735 ml Net -538.63 ml Physical Exam: General appearance: alert in no acute distress. Head: Normocephalic, without obvious abnormality, atraumatic Eyes: Conjunctivae unremarkable, pupils reactive Neck: No JVD, no carotid bruit, neck supple, trachea midline cardiovascular: normal S1-S2, No gallops. Respiratory: Decreased breathing sounds at the bases Gastrointestinal: no tenderness, no guarding, no hepatosplenomegaly could be appreciated. Muscloskeletal: + LE edema, no active arthritis, normal range of movement Neurology: Moves all extremities, alert oriented Skin: no rash, no petechia Psychiatric, no anxiety, no suicidal ideas Lymphatic: no lymphadenopathy, no lymphedema Inpatient Meds: bumetanide, 3 mg, intravenous, BID cefTRIAXone (ROCEPHIN) IV, 1,000 mg, intravenous, Q24H darbepoetin stefania (ARANESP) injection, 100 mcg, subcutaneous, Weekly famotidine, 20 mg, oral, Q48H hydrocortisone sodium succinate, 50 mg, intravenous, Q12H PAUL insulin lispro, 2-10 Units, subcutaneous, With meals and nightly iron sucrose, 200 mg, intravenous, Every Other Day metoprolol tartrate, 50 mg, oral, BID midodrine, 10 mg, oral, TID sevelamer, 800 mg, oral, TID with meals sodium chloride, 10 mL, intravenous, Q96H sodium chloride, 10 mL, intravenous, Q96H sodium chloride, 10 mL, intravenous, Q8H AND sodium citrate, 2 mL, intravenous, Q8H AND sodium chloride, 10 mL, intravenous, PRN AND sodium chloride, 10 mL, intravenous, PRN AND sodium citrate, 2 mL, intravenous, PRN sodium chloride, 3 mL, intravenous, Q12H sodium citrate, 2 mL, intravenous, Q96H sodium citrate, 2 mL, intravenous, Q96H sodium zirconium cyclosilicate, 10 g, oral, Daily with lunch dextrose 5 % in water, 100 mL/hr sodium chloride 0.9 %, 10 mL/hr sodium chloride 0.9 %, 10 mL/hr, Last Rate: 10 mL/hr (09/24/23 0600) sodium chloride 0.9 %, 10 mL/hr, Last Rate: Stopped (09/24/23 0028) sodium chloride 0.9 %, 20 mL/hr sodium chloride 0.9 %, 250 mL sodium chloride 0.9 %, 250 mL Nutrition: Dietary Orders (From admission, onward) Start Ordered 09/21/23 0939 Adult diet Regular Texture; Consistent Carb 210 grams (1800 kcal); Fluid Restriction 1500 mL Diet effective now Question Answer Comment Diet Type: Regular Texture Carbohydrate Modifiers: Consistent Carb 210 grams (1800 kcal) Fluid Restrictions: Fluid Restriction 1500 mL 09/21/23 0939 Labs: Results from last 7 days Lab Units 09/24/2342709/23/232 09/22/23 0448 09/22/23 0208 09/21/23201109/21/23 0950 09/21/23 0510 09/20/23 1304 09/20/23 0744 SODIUM mmol/L 142 138 141 140 137 < > 141 < > 136 POTASSIUM mmol/L 3.5 3.9 4.4 4.4 4.3 < > 5.3* < > 5.4* CHLORIDE mmol/L 103 101 102 102 100 < > 104 < > 104 CO2 mmol/L 20* 18* 19* < > 16* < > 16* BUN mg/dL 62* 54* 83* -- -- -- 103* -- 90* CREATININE mg/dL 4.11* 4.16* 5.70* -- -- -- 6.63* -- 6.01* CALCIUM mg/dL 7.7* 7.7* 7.0* -- -- -- 7.0* -- 7.1* MAGNESIUM mg/dL 2.1 2.2 2.4 -- -- -- 2.6 -- 2.6 PHOSPHORUS mg/dL 5.4* 5.5* 8.6* -- -- -- 9.9* -- 9.2* < > = values in this interval not displayed. Results from last 7 days Lab Units 09/24/2342709/23/2321109/22/23447 WBC X10E9/L 10.1 8.5 8.3 HEMOGLOBIN g/dL 8.4* 8.2* 8.5* HEMATOCRIT % 25.5* 24.9* 25.6* PLATELETS X10E9/L 37* 38* 45* Results from last 7 days Lab Units 09/24/2342709/23/2321109/22/23447 MAGNESIUM mg/dL 2.1 2.2 2.4 Lab Results Component Value Date CALCIUM 7.7 (L) 09/24/2023 Lab Results Component Value Date IRON 65 09/20/2023 TIBC 400 09/20/2023 FERRITIN 40 09/20/2023 Problem list Acute on chronic renal failure stage 4 with serum creatinine of 1.8 mg/dL in 2020, Renal ultrasound from 09/04/2023 showing right kidney 10.8 cm, left kidney 10.9 cm, no hydronephrosis noted. The urinalysis revealed more than 720 RBC and 185 WBC per high-power field, urine protein creatinine ratio was 16.8, FENA was more than 2%, TERRANCE, anti-GBM and vasculitis profile were negative, serum complements were within normal, serum protein electrophoresis unremarkable Shock Acute respiratory failure with bilateral pulmonary infiltrate Atrial fibrillation with history of ablation on chronic anticoagulation Diabetes mellitus type 2 Coronary artery disease, cardiac catheterization in 1999 revealed proximal LAD to mid LAD had 50% stenosis, the left circumflex had 50% proximal to mid lesion, the right coronary artery had 65% ostial to mid lesion Obesity Chronic systolic congestive heart failure Injury to the back Tonsillectomy Myringotomy tube LILIA COX MD [facility] ANY QUESTIONS FEEL FREE TO CALL: 1. OFFICE [phone] 2. ANSWERING SERVICE:[phone] This note was created with the assistance of a speech-recognition program. Although the intention is to generate a document that actually reflects the content of the visit, no guarantees can be provided that every mistake has been identified and corrected by editing. NUTRITION ADULT INITIAL EVALUATION NUTRITION ASSESSMENT: Reason to be seen: nutrition screen for poor po intake [employer] Patient History: Admit Diagnosis: Patient Active Problem List Diagnosis Cerumen debris on tympanic membrane of both ears Typical atrial flutter ([facility]-HCC) Coronary artery disease involving [place] coronary artery of [place] heart without angina pectoris Tachycardia induced cardiomyopathy ([facility]-HCC) Type 2 diabetes mellitus with circulatory disorder, without long-term current use of insulin (CMS-HCC) Other hyperlipidemia Paroxysmal atrial fibrillation (CMS-HCC) BRANDEE (acute kidney injury) ([facility]) Hyperkalemia Bilateral lower extremity edema Systolic and diastolic CHF, acute (CMS-HCC) Acute kidney injury ([facility]-HCC) Past Medical History: Past Medical History: Diagnosis Date Arrhythmia Hypertension Injury of back Disc L4 and L5 Obesity Systolic and diastolic CHF, acute (CMS-HCC) 09/03/2023 Visual impairment Past Surgical History: Past Surgical History: Procedure Laterality Date Cardiac catheterization 02/16/2021 Performed by Kelli Su MD at [facility] CARDIAC CATH LABS Caval Tricuspid Isthmus RFA, Carto w/ICE N/A 03/21/2021 Performed by Lurdes Weinberg MD at [facility] HR (EP) Coronary angiogram and left ventricular gram/pressure N/A 02/16/2021 Performed by Kelli Su MD at [facility] CARDIAC CATH LABS Coronary fractional flow reserve N/A 02/16/2021 Performed by Kelli Su MD at [facility] CARDIAC CATH LABS Intravascular pressure measurement first vessel each additional vessel (fractional flow reserve) N/A 02/16/2021 Performed by Kelli Su MD at [facility] CARDIAC CATH LABS MYRINGOTOMY W/ TUBES TONSILLECTOMY Social/ Cognitive/ Economic: Brief Clinical Summary: Per MD notes, past medical history significant for paroxysmal atrial fibrillation on warfarin, type 2 diabetes mellitus on home metformin use, CHF decreased EF of 40-45%, atrial flutter ablation on 03/21/2021, hypertension, and hyperlipidemia. She was recently discharged on 09/05/2023 following treatment for an BRANDEE. She presented to [facility] on 09/19/2023 with complaints of progressively worsening generalized weakness over the last several days. Biochemical Data, Medical Tests, and Procedures: New dialysis started 09/21 Labs: Results from last 3 days Lab Units 09/24/23 0428 09/23/23 0212 09/22/23 0448 SODIUM mmol/L 142 138 141 POTASSIUM mmol/L 3.5 3.9 4.4 CHLORIDE mmol/L 103 101 102 CO2 mmol/L 22 24 20* BUN mg/dL 62* 54* 83* CREATININE mg/dL 4.11* 4.16* 5.70* CALCIUM mg/dL 7.7* 7.7* 7.0* ALBUMIN g/dL 3.4 3.7 -- ALK PHOS U/L 85 87 -- ALT U/L 13 16 -- AST U/L 23 30 -- Results from last 7 days Lab Units 09/24/23 0754 09/24/23 0428 09/23/23 2142 09/23/23 1547 09/23/23 1155 09/23/23 0758 09/23/23 0212 BEDSIDE GLUCOSE mg/dL 135* -- 115* 145* 112* 129* -- GLUCOSE mg/dL -- 113* -- -- -- -- 123* Results from last 3 days Lab Units 09/24/23 0428 09/23/23 0212 09/22/23 0448 WBC X10E9/L 10.1 8.5 8.3 HEMOGLOBIN g/dL 8.4* 8.2* 8.5* HEMATOCRIT % 25.5* 24.9* 25.6* PLATELETS X10E9/L 37* 38* 45* MCV fL 93 93 93 Results from last 3 days Lab Units 09/24/23 0428 09/23/23 0212 09/22/23 0448 MAGNESIUM mg/dL 2.1 2.2 2.4 Results from last 3 days Lab Units 09/24/23 0428 09/23/23 0212 09/22/23 0720 09/22/23 0448 PHOSPHORUS mg/dL 5.4* 5.5* -- 8.6* CALCIUM, IONIZED mg/dL -- -- 3.9* -- Results from last 3 days Lab Units 09/24/23 0428 09/23/23 0212 TOTAL BILIRUBIN mg/dL 0.9 0.8 Lab Results Component Value Date HGBA1C 10.1 (H) 02/08/2021 Lab Results Component Value Date IRON 65 09/20/2023 TIBC 400 09/20/2023 FERRITIN 40 09/20/2023 Lab Results Component Value Date IRONSAT 16 09/20/2023 Lab Results Component Value Date CHOL 127 (L) 09/13/2021 Lab Results Component Value Date CHDL 3.3 09/13/2021 Lab Results Component Value Date HDL 38 (L) 09/13/2021 Lab Results Component Value Date LDLCALC 57 09/13/2021 Lab Results Component Value Date TRIG 159 (H) 09/13/2021 Lab Results Component Value Date VERYLOWLIP 32 (H) 09/13/2021 Lab Results Component Value Date [id number] 376 09/20/2023 Lab Results Component Value Date FOLATE 4.7 (L) 09/20/2023 No results found for: VITD25 Comments (labs): hyperphosphatemia Medications/ Parenteral: renvela Medications Prior to Admission Medication Sig Dispense Refill Last Dose atorvastatin (LIPITOR) 20 mg tablet Take 1 tablet (20 mg total) by mouth daily. 30 tablet 11 ferrous sulfate 325 (65 FE) mg tablet Take 1 tablet (325 mg total) by mouth daily with breakfast. furosemide (LASIX) 40 mg tablet Take 1 tablet (40 mg total) by mouth daily. 30 tablet 6 losartan (COZAAR) 50 mg tablet Take 1 tablet (50 mg total) by mouth daily. 30 tablet 5 metFORMIN (GLUCOPHAGE) 500 mg tablet Take 1 tablet (500 mg total) by mouth 2 (two) times a day with meals. 60 tablet 0 metoprolol succinate XL (TOPROL XL) 100 mg 24 hr tablet Take 0.5 tablets (50 mg total) by mouth nightly. metoprolol succinate XL (TOPROL-XL) 100 mg 24 hr tablet Take 100 mg (1 tablet) in AM and 50 mg (1/2 tablet) in PM (Patient taking differently: Take 1 tablet (100 mg total) by mouth in the morning. Take 100 mg (1 tablet) in AM .) 45 tablet 5 potassium chloride (K-TAB,KLOR-CON) 10 MEQ CR tablet Take 2 tablets (20 mEq total) by mouth in the morning. warfarin (COUMADIN) 5 mg tablet Take 1 tablet (5 mg total) by mouth in the evening. Take .5 tablet (2.5mg) Saturday, Saturday. And Saturday. Take 1tablet (5mg) Saturday, , Saturday, and Saturday.. (Patient not taking: Reported on 09/20/2023) More than a month Current Facility-Administered Medications Medication Dose Route Frequency Provider Last Rate Last Admin albumin human 25 % IVPB Premix - Pyxis Override Pull bumetanide (BUMEX) 3 mg in sodium chloride 0.9 % 50 mL IVPB 3 mg intravenous BID Dede Rivera DO Stopped at 09/24/23 0841 calcium gluconate IVPB 1000 mg/50 mL (20 mg/mL premix) 1,000 mg intravenous PRN NICOLAS Webb Or calcium gluconate IVPB 2000 mg/100 mL (20 mg/mL premix) 2,000 mg intravenous PRN NICOLAS Webb Or calcium gluconate 3,000 mg in sodium chloride 0.9 % 100 mL IVPB 3,000 mg intravenous PRN NICOLAS Webb cefTRIAXone (ROCEPHIN) 1,000 mg in sodium chloride 0.9 % 50 mL IVPB-MBP 1,000 mg intravenous Q24H NICOLAS Lima Stopped at 09/24/23 0641 darbepoetin stefania-polysorbate (ARANESP) injection 100 mcg 100 mcg subcutaneous Weekly Vidhit Miguel, DO 100 mcg at 09/22/23 1348 dextrose (GLUTOSE) 40 % gel 15 g 15 g oral PRN NICOLAS Webb dextrose 5 % (D5W) infusion 100 mL/hr intravenous Continuous PRN NICOLAS Webb dextrose 50 % in water (D50W) 50% solution 25 g 25 g intravenous Once PRN NICOLAS Webb And dextrose 50 % in water (D50W) 50% solution 50 g 50 g intravenous Once PRN NICOLAS Webb dextrose 50 % in water (D50W) 50% solution 25 mL 25 mL intravenous PRN NICOLAS Webb famotidine (PEPCID) tablet 20 mg 20 mg oral Q48H NICOLAS Webb 20 mg at 09/24/23 0620 glucagon HCL injection 1 mg 1 mg intramuscular PRN NICOLAS Webb hydrocortisone sod succinate (Solu-CORTEF) injection 50 mg 50 mg intravenous Q12H [facility] Samanta Wright MD 50 mg at 09/24/23 0812 insulin lispro (HumaLOG) injection 2-10 Units 2-10 Units subcutaneous With meals and nightly NICOLAS Webb 2 Units at 09/24/23 1200 iron sucrose (VENOFER) IVPB 200 mg/100 mL in sodium chloride 0.9% (CMPD premix) 200 mg intravenous Every Other Day Vidhit Miguel, DO Stopped at 09/24/23 0826 magnesium sulfate IVPB 2000 mg/50 mL in iso-osmotic water (40 mg/mL premix) 2,000 mg intravenous PRN Salbador Howell APRN-ALINA Or magnesium sulfate IVPB 4000 mg/100 mL in iso-osmotic water (40 mg/mL premix) 4,000 mg intravenous PRN Salbador Howell APRN-ALINA metOLazone (ZAROXOLYN) tablet 10 mg 10 mg oral Daily Lilia Cox MD 10 mg at 09/24/23 1247 metoprolol tartrate (LOPRESSOR) tablet 50 mg 50 mg oral BID Samanta Wright MD 50 mg at 09/24/23 0852 midodrine (PROAMATINE) tablet 10 mg 10 mg oral TID Vidhit Miguel, DO 10 mg at 09/24/23 0612 midodrine (PROAMATINE) tablet 10 mg 10 mg oral PRN Vidhit Miguel, DO 10 mg at 09/22/23 0947 potassium chloride (K-TAB,KLOR-CON) CR tablet 20 mEq 20 mEq oral BID with meals Lilia Cox MD 20 mEq at 09/24/23 1214 sevelamer (RENVELA) tablet 800 mg 800 mg oral TID with meals Vidhit Miguel, DO 800 mg at 09/24/23 1200 sodium chloride 0.9 % flush 10 mL 10 mL intravenous Q96H Shirza Danny, CARDIAC CATH TECHNICIAN-[employer] sodium chloride 0.9 % flush 10 mL 10 mL intravenous PRN Shiraz Danny, CARDIAC CATH TECHNICIAN-[employer] 10 mL at 09/21/23 1153 sodium chloride 0.9 % flush 10 mL 10 mL intravenous PRN Shiraz Danny, CARDIAC CATH TECHNICIAN-[employer] 10 mL at 09/21/23 1500 sodium chloride 0.9 % flush 10 mL 10 mL intravenous Q96H Shiraz Danny, CARDIAC CATH TECHNICIAN-[employer] sodium chloride 0.9 % flush 10 mL 10 mL intravenous PRN Shiraz Danny, CARDIAC CATH TECHNICIAN-[employer] 10 mL at 09/21/23 1153 sodium chloride 0.9 % flush 10 mL 10 mL intravenous PRN Shiraz Danny, CARDIAC CATH TECHNICIAN-[employer] 10 mL at 09/21/23 1500 sodium chloride 0.9 % flush 10 mL 10 mL intravenous Q8H Shiraz Danny, CARDIAC CATH TECHNICIAN-[employer] 10 mL at 09/24/23 1217 And sodium citrate 4 % (3 mL) flush 2 mL 2 mL intravenous Q8H Shiraz Danny, CARDIAC CATH TECHNICIAN-[employer] And sodium chloride 0.9 % flush 10 mL 10 mL intravenous PRN Shiraz Danny, CARDIAC CATH TECHNICIAN-[employer] And sodium chloride 0.9 % flush 10 mL 10 mL intravenous PRN Shiraz Danny, CARDIAC CATH TECHNICIAN-[employer] 10 mL at 09/24/23 0538 And sodium citrate 4 % (3 mL) flush 2 mL 2 mL intravenous PRN Shiraz Danny, CARDIAC CATH TECHNICIAN-[employer] sodium chloride 0.9 % flush 3 mL 3 mL intravenous Q12H Tanner Harris MD 3 mL at 09/24/23 1217 sodium chloride 0.9 % infusion 10 mL/hr intravenous Continuous PRN Salbador Howell, CARDIAC CATH TECHNICIAN-[employer] sodium chloride 0.9 % infusion 10 mL/hr intravenous Continuous PRN Salbador Matteder, CARDIAC CATH TECHNICIAN-[employer] 10 mL/hr at 09/24/23 0600 Rate Verify at 09/24/23 0600 sodium chloride 0.9 % infusion 10 mL/hr intravenous Continuous PRN Salbador Matteder, CARDIAC CATH TECHNICIAN-[employer] Stopped at 09/24/23 0028 sodium chloride 0.9 % infusion 20 mL/hr intravenous Continuous PRN Tanner Harris MD sodium chloride 0.9 % infusion 250 mL hemodialysis Continuous Vidhit Miguel, DO sodium chloride 0.9 % infusion 250 mL hemodialysis Continuous Vidhit Miguel, DO sodium citrate 4 % (3 mL) flush 2 mL 2 mL intravenous Q96H Shiraz Danny, CARDIAC CATH TECHNICIAN-[employer] sodium citrate 4 % (3 mL) flush 2 mL 2 mL intravenous PRN Shiraz Danny, CARDIAC CATH TECHNICIAN-[employer] 2 mL at 09/22/23 1151 sodium citrate 4 % (3 mL) flush 2 mL 2 mL intravenous Q96H Shiraz Danny, CARDIAC CATH TECHNICIAN-[employer] sodium citrate 4 % (3 mL) flush 2 mL 2 mL intravenous PRN Shiraz Danny, CARDIAC CATH TECHNICIAN-[employer] 2 mL at 09/22/23 1150 sodium zirconium cyclosilicate (LOKELMA) packet 10 g 10 g oral Daily with lunch Salbador Howell, CARDIAC CATH TECHNICIAN-[employer] 10 g at 09/24/23 1200 Nutrition Focused Physical Findings chewing difficulty (no lower teeth); fair appetite, patient seems lose concentration in conversation. Extremities, Muscles, and Bones A. Muscle Loss - appears WNL B. Loss of Subcutaneous Fat - appears WNL Skin (per nursing flow sheets): Skin Color: Pale; [place]; Ecchymosis (09/24/23 0800) Skin Temp: Warm; Dry (09/24/23 0800) Wound (per nursing flow sheets): --- Gastrointestinal (per nursing flow sheets): Abdomen Assessment: Rounded; Distended (09/24/23 0800) Last BM Date: 09/24/23 (09/24/23 1100) Passing Flatus: Yes (09/24/23 0800) RUQ Bowel Sounds: Active (09/24/23 0800) LUQ Bowel Sounds: Active (09/24/23 0800) RLQ Bowel Sounds: Active (09/24/23 0800) LLQ Bowel Sounds: Active (09/24/23 0800) GI Symptoms: None (09/21/23 1518) Edema (per nursing flow sheets): Generalized Edema: +3 (09/22/23 1215) RLE Edema: +3 (09/24/23 0800) LLE Edema: +3 (09/24/23 0800) Intake/ Output Last 24 hrs: Intake/Output Summary (Last 24 hours) at 09/24/2023 1411 Last data filed at 09/24/2023 1300 Gross per 24 hour Intake 1196.37 ml Output 1735 ml Net -538.63 ml Food/Nutrition Related History: Diet History: per patient/spouse, poor intake d/t chewing difficulty x1 week. Reports she had an ulcer on lower gums. Nutrition Knowledge/Beliefs/Attitudes: no questions at this time however not appropriate at this time Allergies: No Known Allergies Diet/ Nutrition Order Review: Dietary Orders (From admission, onward) Start Ordered 09/21/23 09 Adult diet Regular Texture; Consistent Carb 210 grams (1800 kcal); Fluid Restriction 1500 mL Diet effective now Question Answer Comment Diet Type: Regular Texture Carbohydrate Modifiers: Consistent Carb 210 grams (1800 kcal) Fluid Restrictions: Fluid Restriction 1500 mL 09/21/23 0939 Diet Intakes: not eating quite 50% of meals yet. Oral Supplemental Intake/ Acceptance: none ordered Anthropometrics: Ht Readings from Last 1 Encounters: 09/20/23 165.1 cm (5' 5 ) Wt Readings from Last 20 Encounters: 09/24/23 128 kg (282 lb 3 oz) 09/19/23 132 kg (291 lb) 09/05/23 114.3 kg (252 lb) 08/21/22 114.8 kg (253 lb) 08/28/21 110.2 kg (243 lb) 06/20/21 102.1 kg (225 lb) 04/21/21 108.9 kg (240 lb) 03/21/21 99.3 kg (219 lb) 02/22/21 109.8 kg (242 lb) 02/16/21 106.6 kg (235 lb) 02/09/21 113.4 kg (249 lb 14.4 oz) 09/02/18 112 kg (247 lb) Last 3 Weight Readings 09/22/23 0500 09/23/23 0400 09/24/23 0500 Weight: 131 kg (288 lb 12.8 oz) 131.2 kg (289 lb 3.9 oz) 128 kg (282 lb 3 oz) Admit Weight: 131.8kg (Bed Scale, 09/20/23) Usual Body Weight: 280-285# per patient; see above for wt trends [place] Body Weight: 57kg Percent [place] Body Weight: 225% Weight Changes: down 3.8kg from admit; wt gain [employer] Body Mass Index: Body mass index is 46.96 kg/m . BMI Category: Obese class 3 (> or = 40.00) Comparative Standards: Estimated Energy Needs: 8774-2498 kcals daily. Method and weight used: 28-32 kcal/kg IBW Estimated Protein Needs: 68-86 grams daily. Method and weight used: 1.2-1.5g protein/kg IBW Estimated Fluid Needs: 3234-5881 ml daily. Method weight used: 28-32 ml/kg IBW Comments: acute dialysis needs Malnutrition Status: Malnutrition Present: No NUTRITION DIAGNOSIS: Intake Diagnosis: Inadequate oral intake (NI 2.1) related to chewing difficulty as evidenced by fair intake at least 1 week [employer]. NUTRITION INTERVENTIONS: Meals & snacks: encouraged trying soft foods, ordering chopped/ground meats Coordination of nutrition care: - will have patient try Nepro with Carbsteady 2x/day to provide 420 kcal and 19 g protein per serving. GOAL(S): meet estimated protein/kcal needs NUTRITION MONITORING AND EVALUATION: po intake, weight/lab trends, POC Jessica Wright RD, LD Clinical Dietitian Direct Line CRITICAL CARE PROGRESS NOTE Name: Harris Castrejon Age: 68 y.o. Date: 09/24/23 Length of Stay 4 day(s) Assessment & Plan ASSESSMENT: Acute hypoxic respiratory failure requiring BIPAP support. On BiPAP overnight, and currently on room air Desaturation during iHD yesterday Acute metabolic encephalopathy, agitation. resolved Acute kidney injury on CKD stage 4 on iHD Acute on chronic systolic congestive heart failure with EF 40-45 %, mild to moderate MR and moderate TR Urinary tract infection Paroxysmal atrial fibrillation, uncontrolled. On toprol at home, has been held Supra therapeutic INR, improved Anemia of chronic disease Thrombocytopenia, unclear etiology. 4T score 4, intermediate platelets low; recently within normal FSP 5-20 Heparin PF 4 AB in process Hypothermia on admission, resolved Morbid Obesity, BMI 49.96 PLAN: Oxygen per nasal cannula to maintain SpO2 >90% BiPAP as needed or with sleep Discontinue precedex infusion, currently off Add Metoprolol 50 mg BID Ceftriaxone for UTI Monitor cultures, no growth to date, urine culture in process Check peripheral blood smear Discontinue heparin infusion Check PF 4 AB Hemodialysis per Nephrology On [facility] center On proamatine Steroid taper in place, stop date 09/25 Daily labs Urinary catheter for strict I&O Nutrition: as tolerated Glucose: SSI to keep glucose less than 180 Activity: as tolerated Bowel Regimen: 2 BMs yesterday GI prophylaxis: Pepcid DVT prophylaxis: discontinue Heparin infusion Electrolyte replacement:per ICU protocol Plan of care discussed with nursing No family present at the bedside Disposition: ICU Code Status: Full Lines/tubes: PIV 09/19 PIV x 2 09/20 Right IJ trialysis catheter 09/21 Urinary catheter 09/20 CRITICAL CARE TIME: 35 minutes Subjective Vitals and labs reviewed Patient seen and examined at the bedside On room air Awake, appropriate, cooperative Hospital Problem: Principal Problem: Acute kidney injury (CMS-HCC) OBJECTIVE Vital Signs Temp: [35.5 C (95.9 F)-37 C (98.6 F)] 37 C (98.6 F) Pulse: [54-142] 129 Resp: [7-29] 16 BP: (98-135)/(60-94) 126/75 FiO2 (%): [35 %-40 %] 35 % SpO2: [89 %-100 %] 94 % O2 Device: None (Room air) O2 Flow Rate (L/min): [2 L/min-5 L/min] 2 L/min O2 Device: None (Room air) Physical Exam General: Well-developed, well-nourished, no apparent distress. Head: Normocephalic, atraumatic. Ears normal, nares patent. Eyes: conjunctivae normal. Neck: No tracheal deviation, neck supple. Cardiovascular: Irregular rate and rhythm; rate 130-15-s Pulmonary: Symmetrical chest expansion, respirations regular, non-labored. Clear to auscultation bilaterally, lung sounds diminished at bases. Abdomen: Soft, nontender, nondistended., obese. No guarding or rebound tenderness. : clear yellow urine per dasilva catheter Neurological: alert, appropriate Skin: Warm, dry Extremities: 2+ peripheral edema to thighs I/O last 3 completed shifts: In: 1541.1 [P.O.:120; I.V.:1238.7; IV Piggyback:182.4] Out: 1989 [Urine:1989] Recent Results (from the past 24 hour(s)) Bedside Glucose *Place/Obtain serum glucose if >500(>600 MRH) per glucometer. Collection Time: 09/23/23 7:58 AM Result Value Ref Range Bedside glucose 129 (H) 65 - 99 mg/dL Bedside Glucose *Place/Obtain serum glucose if >500(>600 MRH) per glucometer. Collection Time: 09/23/23 11:55 AM Result Value Ref Range Bedside glucose 112 (H) 65 - 99 mg/dL Bedside Glucose *Place/Obtain serum glucose if >500(>600 MRH) per glucometer. Collection Time: 09/23/23 3:47 PM Result Value Ref Range Bedside glucose 145 (H) 65 - 99 mg/dL Anti XA unfractionated heparin Collection Time: 09/23/23 3:50 PM Result Value Ref Range Heparin anti-xa, unfractionated 0.50 0.30 - 0.70 IU/mL Anti XA unfractionated heparin Collection Time: 09/23/23 9:42 PM Result Value Ref Range Heparin anti-xa, unfractionated 0.67 0.30 - 0.70 IU/mL Bedside Glucose *Place/Obtain serum glucose if >500(>600 MRH) per glucometer. Collection Time: 09/23/23 9:42 PM Result Value Ref Range Bedside glucose 115 (H) 65 - 99 mg/dL Protime & INR Collection Time: 09/24/23 4:28 AM Result Value Ref Range Protime 18.2 (H) 9.8 - 13.2 sec Inr 1.6 (H) 0.8 - 1.1 CBC auto differential Collection Time: 09/24/23 4:28 AM Result Value Ref Range White Blood Cells 10.1 4.0 - 11.0 X10E9/L RBC count 2.75 (L) 3.80 - 5.20 X10E12/L Hemoglobin 8.4 (L) 11.7 - 15.5 g/dL Hematocrit 25.5 (L) 35 - 47 % MCV 93 80 - 100 fL MCH 30.6 27 - 34 pg MCHC 33.0 32 - 36 g/dL RDW 19.4 (H) 11.5 - 15.0 % Platelets 37 (L) 150 - 450 X10E9/L MPV 9.9 7 - 12 fL % neutrophils 86.3 % % lymphocytes 5.6 % % monocytes 7.9 % % eosinophils 0.1 % % Basophils 0.1 % Neutrophils Absolute (A) 8.7 (H) 1.5 - 6.6 X10E9/L Lymphocytes Absolute 0.6 (L) 1.0 - 3.5 X10E9/L Monocytes Absolute 0.8 0 - 0.9 X10E9/L Eosinophils Absolute 0.0 0.0 - 0.4 X10E9/L Basophils Absolute 0.0 0.0 - 0.2 X10E9/L Comprehensive metabolic panel Collection Time: 09/24/23 4:28 AM Result Value Ref Range Sodium 142 134 - 146 mmol/L Potassium, Bld 3.5 3.5 - 5.0 mmol/L Chloride 103 98 - 109 mmol/L CO2 22 22 - 32 mmol/L Anion gap 17 (H) 5 - 15 mmol/L BUN 62 (H) 5 - 27 mg/dL Creatinine 4.11 (H) 0.40 - 1.00 mg/dL Glucose 113 (H) 65 - 99 mg/dL Calcium 7.7 (L) 8.5 - 10.5 mg/dL Total Protein 6.0 6.0 - 8.0 g/dL Albumin 3.4 3.2 - 5.3 g/dL Alkaline Phosphatase 85 39 - 130 U/L AST 23 0 - 41 U/L ALT 13 0 - 31 U/L Total bilirubin 0.9 0.3 - 1.2 mg/dL eGFR (CKD-EPI)non-race dependent 11 (L) >59 ml/min/1.73sq.m Magnesium Collection Time: 09/24/23 4:28 AM Result Value Ref Range Magnesium 2.1 1.8 - 2.6 mg/dL Phosphorus Collection Time: 09/24/23 4:28 AM Result Value Ref Range Phosphorus 5.4 (H) 2.4 - 4.9 mg/dL Fibrin split products Collection Time: 09/24/23 4:28 AM Result Value Ref Range Fibrin split product 5-20 H (AA) <5 ug/mL Fibrinogen Collection Time: 09/24/23 4:28 AM Result Value Ref Range Fibrinogen 324 190 - 480 mg/dL Anti XA unfractionated heparin Collection Time: 09/24/23 4:28 AM Result Value Ref Range Heparin anti-xa, unfractionated 0.64 0.30 - 0.70 IU/mL Glucose Results from last 7 days Lab Units 09/24/23 0428 09/23/23 2142 09/23/23 1547 09/23/23 1155 09/23/23 0758 09/23/23 0212 09/22/23 2117 09/22/23 1700 09/22/23 1345 09/22/23 0738 09/22/23 0448 09/21/23 2119 BEDSIDE GLUCOSE mg/dL -- 115* 145* 112* 129* -- 89 86 113* 139* -- 138* GLUCOSE mg/dL 113* -- -- -- -- 123* -- -- -- -- 133* -- Microbiology Results Procedure Component Value Units Date/Time Urine culture [[id number]] Resulted: 09/23/232206 Specimen: Urine Updated: 09/23/232214 Blood culture [[id number]] Collected: 09/19/232341 Specimen: Blood Updated: 09/23/23 103 Culture NO GROWTH 3 DAYS Blood culture [[id number]] Collected: 09/19/239 Specimen: Blood Updated: 09/23/23 103 Culture NO GROWTH 3 DAYS SARS/FLU A+B/RSV by NAAT/Molecular (M4RT Collection Tube) [[id number]] Collected: 09/19/23 2326 Specimen: Nasopharynx Updated: 09/20/23 0029 FLU A PCR Negative FLU B PCR Negative RSV by PCR Negative SARS CoV 2 BY PCR Not Detected X-ray chest 1 view Result Date: 09/22/2023 Procedure: Chest x-ray performed Number of views:1 History:Shortness of breath Comparison:09/21/2023 Impression: 1. Tubes and lines are stable. Congestion and effusions are present. These are slightly increased. The cardiac silhouette remains enlarged. There is no pneumothorax. Finalized by Jose Tinoco MD on 09/22/2023 1:32 PM X-ray chest 1 view Result Date: 09/21/2023 HISTORY AND/OR TECH NOTES line placement PROCEDURE AP chest at 10:32 AM COMPARISON September 20 FINDINGS Right central line placement to the mid SVC No visible pneumothorax There is cardiomediastinal prominence with increased perihilar congestion and granular opacity There is increase in confluent opacity in left greater than right lung base Probable small effusions IMPRESSION: Right central line placement mid SVC without visible pneumothorax Worsening congestive change and probable edema and atelectasis left worse than right with trace effusions Suggest follow-up imaging to document clearing and normalization when appropriate ----- Finalized by Charlie Mendoza MD on 09/21/2023 10:45 AM Ventilator Settings Vent Mode: S/T FiO2 (%): 35 % Resp Rate (Set): 8 Insp Time (sec): 1 sec Insp Rise Time (%): 3 % IPAP: 12 EPAP: 6 Invasive Hemodynamic [place] Lines/Drains Hemodialysis Catheter Triple 09/21/23 Right Internal Jugular (Active) Precautions Standard precautions;Hand hygiene;Gloves;Mask 09/23/231929 Lumen 1 Blue 09/23/231929 Lumen 1 Status Other (Comment) 09/23/231929 Lumen [address] 09/23/231929 Lumen 2 Red 09/23/231929 Lumen 2 Status Other (Comment) 09/23/231929 Lumen [address] 09/23/231929 Lumen 3 Pigtail 09/23/231929 Lumen 3 Status Infusing;Alcohol sponge cap maintained;Connections checked/tightened 09/23/231929 HD Status Citrate Locked 09/23/23 1600 Site Assessment Clean;Dry;Intact;Sutures intact 09/23/231929 Site Condition No complications 09/23/231929 Dressing Type Occlusive;Transparent with CHG gel;Securing device 09/23/231929 Dressing Status Clean;Dry;Intact;CHG disk in place 09/23/231929 Dressing Intervention Other (Comment) 09/23/231929 Line Necessity Dialysis 09/23/231929 Line Necessity Reviewed With Dr. Cox 09/23/231929 Patient tolerance of dressing change Tolerated well 09/23/231929 Central Line Dressing Change Due (Non-Gauze) 09/29/23 09/22/23 1215 Peripheral IV 09/19/23 Left Antecubital (Active) Line Status Saline locked;Alcohol sponge cap maintained;Connections checked/tightened 09/23/231929 Site Assessment Clean;Dry;Intact 09/23/231929 Dressing Type Occlusive;Transparent 09/23/231929 Dressing Status Clean;Dry;Intact 09/23/231929 Dressing Intervention Initial dressing 09/23/231929 Dressing Change Due (Non-Gauze) 09/26/23 09/19/23 2312 Peripheral IV 09/20/23 Right Forearm (Active) Line Status Infusing;Alcohol sponge cap maintained;Connections checked/tightened 09/23/231929 Site Assessment Clean;Intact;Dry 09/23/231929 Dressing Type Occlusive;Transparent 09/23/231929 Dressing Status Clean;Dry;Intact 09/23/231929 Dressing Intervention Initial dressing 09/23/231929 Dressing Change Due (Non-Gauze) 09/27/23 09/20/23 0021 Peripheral IV 09/20/23 Anterior;Left Forearm (Active) Line Status Saline locked;Alcohol sponge cap maintained;Connections checked/tightened 09/23/231929 Site Assessment Clean;Dry;Intact 09/23/231929 Dressing Type Occlusive;Transparent 09/23/231929 Dressing Status Clean;Dry;Intact 09/23/231929 Dressing Intervention Initial dressing 09/23/231929 Dressing Change Due (Non-Gauze) 09/27/23 09/20/231944 Urinary Catheter 09/20/23 (Active) Catheter Status Patent 09/23/231929 Site Assessment Clean;Skin intact 09/23/231929 Collection Container Standard drainage bag/container 09/23/231929 Securement Method Securing device (Describe);Tube rolon;Secured right 09/23/231929 Tamper Evident Seal Intact Yes 09/23/231929 Reason for Continuing Strict I&O in critically ill patient 09/23/231929 Urine Color Yellow/straw 09/23/231929 Urine Appearance Clear 09/23/231929 Output (mL) 50 mL 09/24/23 0700 I/O last 3 completed shifts: In: 1541.1 [P.O.:120; I.V.:1238.7; IV Piggyback:182.4] Out: 1989 [Urine:1989] I/O this shift: In: - Out: 50 [Urine:50] bumetanide, 3 mg, intravenous, BID cefTRIAXone (ROCEPHIN) IV, 1,000 mg, intravenous, Q24H darbepoetin stefania (ARANESP) injection, 100 mcg, subcutaneous, Weekly famotidine, 20 mg, oral, Q48H hydrocortisone sodium succinate, 50 mg, intravenous, Q12H PAUL insulin lispro, 2-10 Units, subcutaneous, With meals and nightly iron sucrose, 200 mg, intravenous, Every Other Day metoprolol tartrate, 50 mg, oral, BID midodrine, 10 mg, oral, TID sevelamer, 800 mg, oral, TID with meals sodium chloride, 10 mL, intravenous, Q96H sodium chloride, 10 mL, intravenous, Q96H sodium chloride, 10 mL, intravenous, Q8H AND sodium citrate, 2 mL, intravenous, Q8H AND sodium chloride, 10 mL, intravenous, PRN AND sodium chloride, 10 mL, intravenous, PRN AND sodium citrate, 2 mL, intravenous, PRN sodium chloride, 3 mL, intravenous, Q12H sodium citrate, 2 mL, intravenous, Q96H sodium citrate, 2 mL, intravenous, Q96H sodium zirconium cyclosilicate, 10 g, oral, Daily with lunch dexmedeTOMIDine, 0.2-0.7 mcg/kg/hr, Last Rate: Stopped (09/23/23 1000) dextrose 5 % in water, 100 mL/hr heparin, 300-3,500 Units/hr, Last Rate: 1,000 Units/hr (09/23/23 1846) sodium chloride 0.9 %, 10 mL/hr sodium chloride 0.9 %, 10 mL/hr, Last Rate: 10 mL/hr (09/24/23 0600) sodium chloride 0.9 %, 10 mL/hr, Last Rate: Stopped (09/24/23 0028) sodium chloride 0.9 %, 20 mL/hr sodium chloride 0.9 %, 250 mL sodium chloride 0.9 %, 250 mL SCRIBE STATEMENT Scribed for and in the presence of Dr. Wright by Faith PAIZ, RN. Faith Stephens RN on 09/24/2023 7:34 AM PROVIDER STATEMENT I, SAMANTA WRIGHT MD, personally performed the services described in the documentation, as scribed by Faith Stephens, RN in my presence, and it is both accurate and complete. - SAMANTA WRIGHT MD, on 09/24/2023 at 8:02 AM Images from the original note were not included. Nephrology Daily Progress Note The events of last night reviewed, chart and all new entries , new tests reviewed Impression/Plan: Acute on chronic renal failure stage 4 due to acute tubular necrosis, started on hemodialysis on 09/21/2023, received hemodialysis yesterday, she is responding to diuretics Acute hypoxemic respiratory failure with pulmonary congestion and bilateral effusion Status post shock, patient is off pressors, on midodrine and stress dose steroid which is being weaned down Acute on chronic systolic congestive heart failure with EF of 40-45%, [id number] MR and moderate TR Anemia, on Aranesp and iron Thrombocytopenia, I will check haptoglobin, fibrinogen, heparin antibody and fibrinogen split product Interval history, received hemodialysis yesterday, responding to diuretics, off pressors Vitals: 09/23/23 0800 09/23/23 0900 09/23/23 1000 09/23/23 1006 BP: 112/76 123/74 108/76 Pulse: 86 89 81 89 Resp: 18 15 15 Temp: (!) 35.5 C (95.9 F) TempSrc: Axillary SpO2: 100% 98% 93% 92% Weight: Height: Intake/Output: Intake/Output Summary (Last 24 hours) at 09/23/2023 1152 Last data filed at 09/23/2023 1000 Gross per 24 hour Intake 1265.02 ml Output 3640 ml Net -2374.98 ml Physical Exam: General appearance: alert in no acute distress. Head: Normocephalic, without obvious abnormality, atraumatic Eyes: Conjunctivae unremarkable, pupils reactive Neck: No JVD, no carotid bruit, neck supple, trachea midline cardiovascular: normal S1-S2, No gallops. Respiratory: Decreased breathing sounds at the bases Gastrointestinal: no tenderness, no guarding, no hepatosplenomegaly could be appreciated. Muscloskeletal: + LE edema, no active arthritis, normal range of movement Neurology: Moves all extremities, alert oriented Skin: no rash, no petechia Psychiatric, no anxiety, no suicidal ideas Lymphatic: no lymphadenopathy, no lymphedema Inpatient Meds: bumetanide, 3 mg, intravenous, BID darbepoetin stefania (ARANESP) injection, 100 mcg, subcutaneous, Weekly famotidine, 20 mg, oral, Q48H hydrocortisone sodium succinate, 50 mg, intravenous, Q12H PAUL insulin lispro, 2-10 Units, subcutaneous, With meals and nightly iron sucrose, 200 mg, intravenous, Every Other Day midodrine, 10 mg, oral, TID sevelamer, 800 mg, oral, TID with meals sodium chloride, 10 mL, intravenous, Q96H sodium chloride, 10 mL, intravenous, Q96H sodium chloride, 3 mL, intravenous, Q12H sodium citrate, 2 mL, intravenous, Q96H sodium citrate, 2 mL, intravenous, Q96H sodium zirconium cyclosilicate, 10 g, oral, Daily with lunch dexmedeTOMIDine, 0.2-0.7 mcg/kg/hr, Last Rate: 0.3 mcg/kg/hr (09/23/23 0648) dextrose 5 % in water, 100 mL/hr heparin, 300-3,500 Units/hr, Last Rate: 1,000 Units/hr (09/23/23 0932) norepinephrine, 0.01-0.2 mcg/kg/min, Last Rate: Stopped (09/22/23 1240) sodium chloride 0.9 %, 10 mL/hr sodium chloride 0.9 %, 10 mL/hr, Last Rate: 10 mL/hr (09/23/23647) sodium chloride 0.9 %, 10 mL/hr, Last Rate: 10 mL/hr (09/23/23647) sodium chloride 0.9 %, 20 mL/hr sodium chloride 0.9 %, 250 mL sodium chloride 0.9 %, 250 mL Nutrition: Dietary Orders (From admission, onward) Start Ordered 09/21/23 0939 Adult diet Regular Texture; Consistent Carb 210 grams (1800 kcal); Fluid Restriction 1500 mL Diet effective now Question Answer Comment Diet Type: Regular Texture Carbohydrate Modifiers: Consistent Carb 210 grams (1800 kcal) Fluid Restrictions: Fluid Restriction 1500 mL 09/21/23 0939 Labs: Results from last 7 days Lab Units 09/23/23 0212 09/22/23 0448 09/22/23 0208 09/21/23 2012 09/21/23 1527 09/21/23 0950 09/21/23 0510 09/20/23 1304 09/20/23 0744 09/19/23 2329 SODIUM mmol/L 138 141 140 137 138 < > 141 < > 136 133* POTASSIUM mmol/L 3.9 4.4 4.4 4.3 4.4 < > 5.3* < > 5.4* 4.9 CHLORIDE mmol/L 101 102 102 100 98 < > 104 < > 104 108 CO2 mmol/L 24 20* 18* 19* 19* < > 16* < > 16* 15* BUN mg/dL 54* 83* -- -- -- -- 103* -- 90* 99* CREATININE mg/dL 4.16* 5.70* -- -- -- -- 6.63* -- 6.01* 6.52* CALCIUM mg/dL 7.7* 7.0* -- -- -- -- 7.0* -- 7.1* 7.1* MAGNESIUM mg/dL 2.2 2.4 -- -- -- -- 2.6 -- 2.6 2.9* PHOSPHORUS mg/dL 5.5* 8.6* -- -- -- -- 9.9* -- 9.2* -- < > = values in this interval not displayed. Results from last 7 days Lab Units 09/23/23 0212 09/22/23 0448 09/21/23 0510 WBC X10E9/L 8.5 8.3 10.0 HEMOGLOBIN g/dL 8.2* 8.5* 8.7* HEMATOCRIT % 24.9* 25.6* 26.9* PLATELETS X10E9/L 38* 45* 59* Results from last 7 days Lab Units 09/23/23 0212 09/22/23 0448 09/21/23 0510 MAGNESIUM mg/dL 2.2 2.4 2.6 Lab Results Component Value Date CALCIUM 7.7 (L) 09/23/2023 Lab Results Component Value Date IRON 65 09/20/2023 TIBC 400 09/20/2023 FERRITIN 40 09/20/2023 Problem list Acute on chronic renal failure stage 4 with serum creatinine of 1.8 mg/dL in 2020, Renal ultrasound from 09/04/2023 showing right kidney 10.8 cm, left kidney 10.9 cm, no hydronephrosis noted. The urinalysis revealed more than 720 RBC and 185 WBC per high-power field, urine protein creatinine ratio was 16.8, FENA was more than 2%, TERRANCE, anti-GBM and vasculitis profile were negative, serum complements were within normal, serum protein electrophoresis is pending Shock Acute respiratory failure with bilateral pulmonary infiltrate Atrial fibrillation with history of ablation on chronic anticoagulation Diabetes mellitus type 2 Coronary artery disease, cardiac catheterization in 1999 revealed proximal LAD to mid LAD had 50% stenosis, the left circumflex had 50% proximal to mid lesion, the right coronary artery had 65% ostial to mid lesion Obesity Chronic systolic congestive heart failure Injury to the back Tonsillectomy Myringotomy tube LILIA COX MD [facility] ANY QUESTIONS FEEL FREE TO CALL: 1. OFFICE [phone] 2. ANSWERING SERVICE:[phone] This note was created with the assistance of a speech-recognition program. Although the intention is to generate a document that actually reflects the content of the visit, no guarantees can be provided that every mistake has been identified and corrected by editing. Images from the original note were not included. [facility] Progress Note Patient - Harris Castrejon Age - 68 [facility] 1955 [id number] Date of Admission - 09/20/2023 6:17 AM ASSESSMENT Acute hypoxemic respiratory failure requiring BiPAP support. Acute metabolic encephalopathy, agitation, on Precedex infusion Acute kidney injury with underlying CKD stage 4, on hemodialysis Paroxysmal atrial fibrillation Small pleural effusion Supra therapeutic INR, improved Anemia of chronic disease Thrombocytopenia Hypothermia PLAN Continue oxygen to maintain O2 sat above 90% BiPAP support as needed or with sleep Titrate Precedex to maintain RASS 0 Hemodialysis/diuresis per Nephrology Keep patient NPO Closely monitor output Closely monitor electrolytes and replace as needed Pressors if needed to maintain map above 65 On midodrine. Start heparin infusion Discussed with RT SUBJECTIVE Currently patient on BiPAP and Precedex Hypothermic VITALS BP 112/76 Pulse 89 Temp (!) 35.5 C (95.9 F) (Axillary) Resp 17 Ht 165.1 cm (5' 5 ) Wt 131.2 kg (289 lb 3.9 oz) SpO2 98% BMI 48.13 kg/m Exam Physical Exam Vitals reviewed. Constitutional: General: She is sleeping. Interventions: She is sedated. Comments: On BiPAP Cardiovascular: Rate and Rhythm: Normal rate. Pulmonary: Effort: Pulmonary effort is normal. No respiratory distress. Abdominal: Palpations: Abdomen is soft. Skin: General: Skin is warm. Coloration: Skin is pale. Psychiatric: Behavior: Behavior is uncooperative. Meds Medications Reviewed. Lab Results LABs: Results from last 7 days Lab Units 09/23/23 0212 09/22/23 0448 09/21/23 0510 WBC X10E9/L 8.5 8.3 10.0 HEMOGLOBIN g/dL 8.2* 8.5* 8.7* HEMATOCRIT % 24.9* 25.6* 26.9* PLATELETS X10E9/L 38* 45* 59* Results from last 7 days Lab Units 09/23/23 0212 09/22/23 0448 09/22/23 0208 09/21/23 0950 09/21/23 0510 POTASSIUM mmol/L 3.9 4.4 4.4 < > 5.3* CHLORIDE mmol/L 101 102 102 < > 104 CO2 mmol/L 24 20* 18* < > 16* BUN mg/dL 54* 83* -- -- 103* CREATININE mg/dL 4.16* 5.70* -- -- 6.63* CALCIUM mg/dL 7.7* 7.0* -- -- 7.0* < > = values in this interval not displayed. Intake/Output last 3 shifts: I/O last 3 completed shifts: In: 2011.4 [I.V.:1558.8; IV Piggyback:453.7] Out: 3570 [Urine:560; Other:3010] Intake/Output this shift: No intake/output data recorded. Vent settings for last 24 hours: Vent Mode: S/T FiO2 (%): [40 %] 40 % S RR: [8] 8 Insp Time (sec): [1 sec] 1 sec Insp Rise Time (%): [3 %] 3 % IPAP: [12] 12 EPAP: [6] 6 Total critical care time with this patient exceeded 35 minutes, includes complex decision making. The patient is at risk for further clinical decompensation. This time excluded performing procedures. Damián Eng MD 09/23/23 This note was created with the assistance of a speech-recognition program. Although the intention is to generate a document that actually reflects the content of the visit, no guarantees can be provided that every mistake has been identified and corrected by editing. Images from the original note were not included. [facility] Critical Care Update Note Name: Harris Castrejon Age: 68 y.o. Date: 09/22/23 Was called to bedside by RN around 11:40 a.m. due to patient desatting, and change in mental status during dialysis. Upon arrival to patient's room, patient was satting 90% on 4L nasal cannula, less responsive than this morning, and only would groan to any questions asked. Obtained arterial iCODE that showed pH 7.49, pCO2 26.8, PO2 68, HC03 20, electrolytes were unremarkable and CXR showed slightly increased pleural effusions and congestion. Once dialysis was completed patient was a bit more alert/responsive and satting 96% on 6L NC. Of note patient did require Levophed during dialysis treatment. We will continue to monitor in ICU. GREER LEGGETT PA-C [facility] Critical Care Please feel free to contact me via Patient Touch. Greer Leggett PA-C 09/22/23 1431 Completed full 3hr tx 3010 ml removed with a post wt of 127.4kg Levo restarted, SPA and 10 mg midodrine given x1 for BP support. Post BP 107/65 Images from the original note were not included. NEPHROLOGY PROGRESS NOTE Assessment Acute kidney injury possibly secondary to prerenal etiology along with concerns of acute tubular necrosis, on likely underlying chronic kidney disease stage IV baseline renal function unknown serum creatinine 2020 normal, recent serum creatinine at 1.8 mg/dL prior to hospitalization. Renal function continuing to worsen creatinine now 6.6 mg/dL with patient being refractory to diuretics with ongoing acidemia and hyperkalemia. Hemodialysis initiated 09/21/2023. Second session of dialysis today. Hyperkalemia setting of ongoing renal insufficiency, now improved with dialysis Anion gap metabolic acidosis setting of ongoing renal insufficiency, improving Hyperphosphatemia setting of ongoing renal insufficiency Anemia of chronic disease, along with iron deficiency anemia, will start IV iron and Aranesp Supratherapeutic INR, resolved Hypotensive shock, now off pressors Atrial fibrillation with history of ablation, on Coumadin at home Diabetes mellitus type 2, management per primary Acute on chronic systolics congestive heart failure, currently compensated Volume status: Hypervolemic with +2 pitting edema bilaterally, positive thigh edema. Will correct with dialysis/ultrafiltration Plan Examined on Hemodialysis 2nd session today Monitor daily for dialysis IV iron x5 doses Start Aranesp Maintain map greater than 65 Continue parameters Will monitor for renal recovery if no significant improvement will consult IR for tunnel catheter placement next week in outpatient dialysis to be arranged at [facility] before discharge Continue Renvela Continue low potassium and phosphorus diet Maintain Dasilva catheter Plan discussed with patient's at bedside Plan discussed with bedside nurse Interval history Patient seen examined at bedside. Hemodynamically stable. On nasal cannula 3 L. Currently off pressors. Chest x-ray from this morning showing ongoing pulmonary venous congestion. Received for session hemodialysis yesterday with 2 L removed. Problem List Acute kidney injury possibly secondary to prerenal etiology along with concerns of acute tubular necrosis, on likely underlying chronic kidney disease stage IV baseline renal function unknown serum creatinine 2020 normal, recent serum creatinine at 1.8 mg/dL prior to hospitalization. Renal ultrasound from 09/04/2023 showing right kidney 10.8 cm, left kidney 10.9 cm, no hydronephrosis noted. Hemodialysis initiated 09/21/2023. Hyperkalemia Anion gap metabolic acidosis Hyperphosphatemia Supratherapeutic INR Hypertension Atrial fibrillation with history of ablation Diabetes mellitus type 2 Chronic systolics congestive heart failure Hyperlipidemia Echocardiogram performed 09/04/2023 showing systolic function low EF 40-45% with left ventricular hypertrophy noted. Fjci-[id number]-jrdfumbb mitral regurgitation noted. Moderate tricuspid regurgitation noted. Diastolic function indeterminate due to atrial fibrillation. Right ventricle size normal systolic function mildly reduced. Physical Exam Admission Weight: Weight: 131.8 kg (290 lb 9.1 oz) I/O last 3 completed shifts: In: 1786.2 [P.O.:100; I.V.:1142.6; IV Piggyback:543.6] Out: 3325 [Urine:315; Other:3010] Weight change: -0.8 kg (-1 lb 12.2 oz) Wt Readings from Last 3 Encounters: 09/22/23 131 kg (288 lb 12.8 oz) 09/19/23 132 kg (291 lb) 09/05/23 114.3 kg (252 lb) Vitals: Vitals: 09/22/23 0500 09/22/23 0530 09/22/23 0600 09/22/23 0700 BP: 108/68 123/76 121/81 Pulse: 70 72 80 75 Resp: 22 17 10 16 Temp: TempSrc: SpO2: 97% 96% 99% 97% Weight: 131 kg (288 lb 12.8 oz) Height: General: Alert, oriented x 3 and in no obvious distress Psychiatric: Has a normal mood and affect. HEENT: Head normocephalic. Eyes: Conjunctivae and EOM are normal. Pupils are equal, round and reactive to light. Cardiovascular: Normal rate, regular rhythm and normal heart sounds. No JVD. Pulmonary/Chest: Air entry bilaterally equal. No wheezes or rales. Abdominal: Soft, bowel sounds are normal and there was no tenderness rebound or guarding. Musculoskeletal: Normal range of motion. No tenderness. Neurological: No obvious deficits. Skin: No rash noted. Extremities: +2 pitting edema bilaterally, positive thigh edema Meds: Current Meds: bumetanide, 3 mg, intravenous, BID famotidine, 20 mg, oral, Q48H hydrocortisone sodium succinate, 50 mg, intravenous, Q12H PAUL insulin lispro, 2-10 Units, subcutaneous, With meals and nightly midodrine, 10 mg, oral, TID sevelamer, 800 mg, oral, TID with meals sodium chloride, 10 mL, intravenous, Q96H sodium chloride, 10 mL, intravenous, Q96H sodium chloride, 3 mL, intravenous, Q12H sodium citrate, 2 mL, intravenous, Q96H sodium citrate, 2 mL, intravenous, Q96H sodium zirconium cyclosilicate, 10 g, oral, Daily with lunch Continuous Infusions: dextrose 5 % in water, 100 mL/hr sodium chloride 0.9 %, 10 mL/hr sodium chloride 0.9 %, 10 mL/hr, Last Rate: 10 mL/hr (09/22/23 0710) sodium chloride 0.9 %, 10 mL/hr, Last Rate: 10 mL/hr (09/22/23 0710) sodium chloride 0.9 %, 20 mL/hr sodium chloride 0.9 %, 250 mL sodium chloride 0.9 %, 250 mL Laboratory Studies Results from last 7 days Lab Units 09/22/23 0448 09/22/23 0208 09/21/23201109/21/23 0950 09/21/23 0510 09/20/23 1304 09/20/23 0744 SODIUM mmol/L 141 140 137 < > 141 < > 136 POTASSIUM mmol/L 4.4 4.4 4.3 < > 5.3* < > 5.4* CHLORIDE mmol/L 102 102 100 < > 104 < > 104 CO2 mmol/L 20* 18* 19* < > 16* < > 16* BUN mg/dL 83* -- -- -- 103* -- 90* CREATININE mg/dL 5.70* -- -- -- 6.63* -- 6.01* CALCIUM mg/dL 7.0* -- -- -- 7.0* -- 7.1* PHOSPHORUS mg/dL 8.6* -- -- -- 9.9* -- 9.2* MAGNESIUM mg/dL 2.4 -- -- -- 2.6 -- 2.6 < > = values in this interval not displayed. Results from last 7 days Lab Units 09/22/23 0448 09/21/23 0510 09/20/23 0744 WBC X10E9/L 8.3 10.0 9.7 HEMOGLOBIN g/dL 8.5* 8.7* 10.1* HEMATOCRIT % 25.6* 26.9* 31.1* PLATELETS X10E9/L 45* 59* 67* Results from last 7 days Lab Units 09/22/23 0448 09/21/23 0510 09/20/23 0744 MAGNESIUM mg/dL 2.4 2.6 2.6 Lab Results Component Value Date CALCIUM 7.0 (L) 09/22/2023 Lab Results Component Value Date IRON 65 09/20/2023 TIBC 400 09/20/2023 FERRITIN 40 09/20/2023 Please contact me at [phone] (Office) or [phone] (Answering service) with any questions. Dede Rivera DO [facility] This note was created with the assistance of a speech-recognition program. Although the intention is to generate a document that actually reflects the content of the visit, no guarantees can be provided that every mistake has been identified and corrected by editing. Images from the original note were not included. [facility] Progress Note Name: Harris Castrejon Age: 68 y.o. Date: 09/22/23 Length of Stay 2 day(s) ASSESSMENT Acute kidney injury superimposed on likely underlying CKD stage IV - HD initiated yesterday Hyperkalemia in the setting of BRANDEE - resolved Hypothermia - resolved HFrEF - EF 40-45% on 09/04/2023 echo Paroxysmal atrial fibrillation on Coumadin at home Elevated INR - improving, INR 1.4 s/p 2 doses of vitamin K Hypotension, unspecified maybe related to BRANDEE- required vasopressors, currently off Anion gap metabolic acidosis - improving Anemia of chronic disease Thrombocytopenia Type 2 diabetes mellitus with hyperglycemia PLAN We will monitor off Levophed, if BP remains stable this afternoon we will transfer out of ICU Hemodialysis per nephrology Continue midodrine 10 mg t.i.d. Deescalate steroids, Solu-Cortef 50 mg q.12 hours Discontinue empiric ceftriaxone Daily PT/INR lab Nutrition: Consistent carb and fluid restriction diet Activity: Up in chair DVT prophylaxis: EPCs, will hold off on AC, may restart tomorrow if hgb and INR remain stable GI prophylaxis: Pepcid Glycemic control: Sliding scale insulin Replace electrolytes per protocol CODE STATUS: Full DISPOSITION: Transfer out of ICU *Most recent imaging / lab studies independently reviewed. *Please also note additional orders *Plan of care discussed with Dr. Albertina LEGGETT PA-C [facility] Please feel free to contact me via Patient Touch. Subjective No acute events reported overnight. Patient is sitting up in bed, resting comfortably appears more alert and awake today. No complaints at this time. Hospital Problem: Principal Problem: Acute kidney injury (CMS-HCC) OBJECTIVE: Lungs: effort normal breath sounds normal no respiratory distress no rales no wheezes Heart: rate normal regular rhythm Abdomen: soft no distension bowel sounds normal Neuro: alert PERRL Vital Signs Temp: [36.4 C (97.5 F)-36.9 C (98.4 F)] 36.9 C (98.4 F) Pulse: [62-100] 75 Resp: [10-22] 16 BP: (84-140)/(51-125) 121/81 SpO2: [95 %-99 %] 97 % O2 Device: Nasal cannula O2 Flow Rate (L/min): [3 L/min] 3 L/min O2 Device: Nasal cannula Physical Exam Constitutional She is oriented to person, place, and time. No distress. Morbidly obese Nursing note and vitals reviewed. HENT Head Normocephalic and atraumatic. Eyes: Conjunctivae are normal. Pupils are equal, round, and reactive to light. Neck Normal range of motion. Neck supple. Cardiovascular: Normal rate and regular rhythm. Pulses: intact distal pulses Heart Sounds: normal heart sounds. Pulmonary/Chest: Effort normal and breath sounds normal. She has no wheezes. She has no rales. No respiratory distress. Diminished Abdominal: Bowel sounds are normal. She exhibits no distension. Soft. Musculoskeletal: General: Edema present. Cervical back: Normal range of motion and neck supple. Neurological She is alert and oriented to person, place, and time. Skin: Skin is warm and dry. She is not diaphoretic. No pallor. Patient seen and examined in person and at the bedside I/O last 3 completed shifts: In: 1786.2 [P.O.:100; I.V.:1142.6; IV Piggyback:543.6] Out: 3325 [Urine:315; Other:3010] Recent Results (from the past 24 hour(s)) Electrolyte panel Collection Time: 09/21/23 9:50 AM Result Value Ref Range Sodium 142 134 - 146 mmol/L Potassium, Bld 5.3 (H) 3.5 - 5.0 mmol/L Chloride 103 98 - 109 mmol/L CO2 18 (L) 22 - 32 mmol/L Anion gap 21 (H) 5 - 15 mmol/L Bedside Glucose *Place/Obtain serum glucose if >500(>600 MRH) per glucometer. Collection Time: 09/21/23 12:07 PM Result Value Ref Range Bedside glucose 127 (H) 65 - 99 mg/dL Electrolyte panel Collection Time: 09/21/23 3:27 PM Result Value Ref Range Sodium 138 134 - 146 mmol/L Potassium, Bld 4.4 3.5 - 5.0 mmol/L Chloride 98 98 - 109 mmol/L CO2 19 (L) 22 - 32 mmol/L Anion gap 21 (H) 5 - 15 mmol/L Hepatitis B Surface Antibody Quantitation Collection Time: 09/21/23 3:27 PM Result Value Ref Range Anti HBs quantitative <8.00 mIU/mL Electrolyte panel Collection Time: 09/21/23 8:12 PM Result Value Ref Range Sodium 137 134 - 146 mmol/L Potassium, Bld 4.3 3.5 - 5.0 mmol/L Chloride 100 98 - 109 mmol/L CO2 19 (L) 22 - 32 mmol/L Anion gap 18 (H) 5 - 15 mmol/L Bedside Glucose *Place/Obtain serum glucose if >500(>600 MRH) per glucometer. Collection Time: 09/21/23 9:19 PM Result Value Ref Range Bedside glucose 138 (H) 65 - 99 mg/dL Electrolyte panel Collection Time: 09/22/23 2:08 AM Result Value Ref Range Sodium 140 134 - 146 mmol/L Potassium, Bld 4.4 3.5 - 5.0 mmol/L Chloride 102 98 - 109 mmol/L CO2 18 (L) 22 - 32 mmol/L Anion gap 20 (H) 5 - 15 mmol/L Basic Metabolic Panel Collection Time: 09/22/23 4:48 AM Result Value Ref Range Sodium 141 134 - 146 mmol/L Potassium, Bld 4.4 3.5 - 5.0 mmol/L Chloride 102 98 - 109 mmol/L CO2 20 (L) 22 - 32 mmol/L Anion gap 19 (H) 5 - 15 mmol/L BUN 83 (H) 5 - 27 mg/dL Creatinine 5.70 (H) 0.40 - 1.00 mg/dL Glucose 133 (H) 65 - 99 mg/dL Calcium 7.0 (L) 8.5 - 10.5 mg/dL eGFR (CKD-EPI)non-race dependent 8 (L) >59 ml/min/1.73sq.m Magnesium Collection Time: 09/22/23 4:48 AM Result Value Ref Range Magnesium 2.4 1.8 - 2.6 mg/dL Phosphorus Collection Time: 09/22/23 4:48 AM Result Value Ref Range Phosphorus 8.6 (H) 2.4 - 4.9 mg/dL CBC without diff Collection Time: 09/22/23 4:48 AM Result Value Ref Range White Blood Cells 8.3 4.0 - 11.0 X10E9/L RBC count 2.77 (L) 3.80 - 5.20 X10E12/L Hemoglobin 8.5 (L) 11.7 - 15.5 g/dL Hematocrit 25.6 (L) 35 - 47 % MCV 93 80 - 100 fL MCH 30.6 27 - 34 pg MCHC 33.0 32 - 36 g/dL RDW 19.8 (H) 11.5 - 15.0 % Platelets 45 (L) 150 - 450 X10E9/L MPV 10.3 7 - 12 fL Protime & INR Collection Time: 09/22/23 4:48 AM Result Value Ref Range Protime 16.5 (H) 9.8 - 13.2 sec Inr 1.4 (H) 0.8 - 1.1 Ionized calcium Collection Time: 09/22/23 7:20 AM Result Value Ref Range Calcium, ionized 3.9 (L) 4.5 - 5.3 mg/dL Bedside Glucose *Place/Obtain serum glucose if >500(>600 MRH) per glucometer. Collection Time: 09/22/23 7:38 AM Result Value Ref Range Bedside glucose 139 (H) 65 - 99 mg/dL Glucose Results from last 7 days Lab Units 09/22/23 0738 09/22/23 0448 09/21/23 2119 09/21/23 1207 09/21/23 0739 09/21/23 0510 09/20/23 2113 09/20/23 1703 09/20/23 1245 09/20/23 0805 09/20/23 0744 09/20/23 0630 BEDSIDE GLUCOSE mg/dL 139* -- 138* 127* 132* -- 139* 131* 138* 187* -- 190* GLUCOSE mg/dL -- 133* -- -- -- 121* -- -- -- -- 183* -- Microbiology Results Procedure Component Value Units Date/Time Blood culture [[id number]] Collected: 09/19/23 234 Specimen: Blood Updated: 09/21/23 1034 Culture NO GROWTH 1 DAY Blood culture [[id number]] Collected: 09/19/232328 Specimen: Blood Updated: 09/21/23 1031 Culture NO GROWTH 1 DAY SARS/FLU A+B/RSV by NAAT/Molecular (M4RT Collection Tube) [[id number]] Collected: 09/19/232325 Specimen: Nasopharynx Updated: 09/20/23 0029 FLU A PCR Negative FLU B PCR Negative RSV by PCR Negative SARS CoV 2 BY PCR Not Detected Ventilator Invasive Hemodynamic [place] I/O last 3 completed shifts: In: 1786.2 [P.O.:100; I.V.:1142.6; IV Piggyback:543.6] Out: 3325 [Urine:315; Other:3010] I/O this shift: In: 87.9 [I.V.:87.9] Out: 30 [Urine:30] bumetanide, 3 mg, intravenous, BID cefTRIAXone (ROCEPHIN) IV, 1,000 mg, intravenous, Q24H famotidine, 20 mg, oral, Q48H hydrocortisone sodium succinate, 50 mg, intravenous, Q12H PAUL insulin lispro, 2-10 Units, subcutaneous, With meals and nightly midodrine, 10 mg, oral, TID sevelamer, 800 mg, oral, TID with meals sodium chloride, 10 mL, intravenous, Q96H sodium chloride, 10 mL, intravenous, Q96H sodium chloride, 3 mL, intravenous, Q12H sodium citrate, 2 mL, intravenous, Q96H sodium citrate, 2 mL, intravenous, Q96H sodium zirconium cyclosilicate, 10 g, oral, Daily with lunch dextrose 5 % in water, 100 mL/hr sodium chloride 0.9 %, 10 mL/hr sodium chloride 0.9 %, 10 mL/hr, Last Rate: 10 mL/hr (09/22/23 0710) sodium chloride 0.9 %, 10 mL/hr, Last Rate: 10 mL/hr (09/22/23 0710) sodium chloride 0.9 %, 20 mL/hr sodium chloride 0.9 %, 250 mL sodium chloride 0.9 %, 250 mL Greer Leggett PA-C 09/22/23 0819 Images from the original note were not included. [facility] Progress Note Name: Harris Castrejon Age: 68 y.o. Date: 09/21/23 Length of Stay 1 day(s) ASSESSMENT Acute kidney injury superimposed on likely underlying CKD stage IV Hyperkalemia in the setting of BRANDEE Hypothermia - resolved HFrEF - EF 40-45% on 09/04/2023 echo Paroxysmal atrial fibrillation on Coumadin at home Elevated INR - improving after 2 doses of vitamin K, INR 2.1 Hypotension, unspecified maybe related to BRANDEE- requiring Levophed Anion gap metabolic acidosis Anemia of chronic disease Thrombocytopenia Type 2 diabetes mellitus with hyperglycemia PLAN Titrate Levophed to maintain MAP >65 Continue midodrine 10 mg t.i.d. Continue stress dose steroids Solu-Cortef 50 mg q.6 hours Nephrology would like to initiate hemodialysis Will place trialysis catheter Daily PT/INR lab Monitor for signs of bleeding Nutrition: Fluid restriction and consistent carb diet Activity: Bedrest DVT prophylaxis: EPCs, chemical prophylaxis held due to elevated INR GI prophylaxis: Pepcid Glycemic control: Sliding scale insulin Replace electrolytes per protocol CODE STATUS: FULL DISPOSITION: MICU *Most recent imaging / lab studies independently reviewed. *Please also note additional orders *Plan of care discussed with Dr. Albertina LEGGETT, JUAN [facility] Please feel free to contact me via Patient Touch. CRITICAL CARE TIME: 32 minutes. Non-contiguous time with attending MD, excluding procedures. This patient, with a critical illness, requires constant monitoring and titration of care by a Critical Care Web Site Developer or CHALINO. Failure to do so may result in further organ system failure, imminent deterioration, or . Subjective No acute events reported overnight. Patient is resting in bed, no complaints at this time. Hospital Problem: Principal Problem: Acute kidney injury (CMS-HCC) OBJECTIVE: Lungs: effort normal no respiratory distress Heart: rate normal regular rhythm no murmur Abdomen: soft no distension bowel sounds normal Extremities: ROM normal Neuro: alert PERRL Vital Signs Temp: [33.7 C (92.7 F)-36.5 C (97.7 F)] 36.1 C (97 F) Pulse: [69-103] 100 Resp: [8-21] 17 BP: (74-109)/(57-81) 100/58 SpO2: [92 %-100 %] 97 % O2 Device: Nasal cannula O2 Flow Rate (L/min): [3 L/min-4 L/min] 3 L/min O2 Device: Nasal cannula Physical Exam Constitutional She is oriented to person, place, and time. No distress. Nursing note and vitals reviewed. HENT Head Normocephalic and atraumatic. Eyes: Conjunctivae are normal. Pupils are equal, round, and reactive to light. Neck Normal range of motion. Neck supple. Cardiovascular: Normal rate and regular rhythm. No murmur heard. Pulses: intact distal pulses Heart Sounds: normal heart sounds. Pulmonary/Chest: Effort normal. No respiratory distress. Diminished breath sounds Abdominal: Bowel sounds are normal. She exhibits no distension. Soft. There is no abdominal tenderness. Musculoskeletal: General: No edema. Normal range of motion. Cervical back: Normal range of motion and neck supple. Neurological She is alert and oriented to person, place, and time. Skin: Skin is warm and dry. She is not diaphoretic. No pallor. Patient seen and examined in person and at the bedside I/O last 3 completed shifts: In: 846.7 [P.O.:100; I.V.:375.1; IV Piggyback:371.6] Out: 60 [Urine:60] Recent Results (from the past 24 hour(s)) Bedside Glucose *Place/Obtain serum glucose if >500(>600 MRH) per glucometer. Collection Time: 09/20/23 12:45 PM Result Value Ref Range Bedside glucose 138 (H) 65 - 99 mg/dL Uric acid Collection Time: 09/20/23 1:04 PM Result Value Ref Range Uric Acid 12.1 (H) 2.6 - 7.2 mg/dL TERRANCE Screen w/ Reflex Collection Time: 09/20/23 1:04 PM Result Value Ref Range Terrance screen Negative Negative^Negative Protein electrophoresis, serum Collection Time: 09/20/23 1:04 PM Result Value Ref Range Total Protein 5.6 (L) 6.0 - 8.0 g/dL Albumin PENDING 3.4 - 5.3 g/dL Alpha 1 PENDING 0.1 - 0.4 g/dL Alpha 2 PENDING 0.4 - 1.1 g/dL Beta PENDING 0.5 - 1.2 g/dL Gamma Globulin PENDING 0.5 - 1.6 g/dL Prot. electrophoresis interp PENDING Complement profile (C3 AND C4) Collection Time: 09/20/23 1:04 PM Result Value Ref Range C3 Complement 106 86 - 184 mg/dL C4 Complement 24 16 - 47 mg/dL Hepatitis panel, acute Collection Time: 09/20/23 1:04 PM Result Value Ref Range Hepatitis B Surface Ag Negative Negative^Negative Hep B Core IgM Ab Negative Negative^Negative Hep A IgM Ab Non-Reactive Non-Reactive^Non-Reactive Anti HCV w/ PCR reflex Non-Reactive Non-Reactive^Non-Reactive Free light chains Collection Time: 09/20/23 1:04 PM Result Value Ref Range Free [place] Lt Chains 24.92 (H) 0.33 - 1.94 mg/dL Free Lambda Lt Chains 10.33 (H) 0.57 - 2.63 mg/dL Free tuan/lambda ratio 2.41 (H) 0.26 - 1.65 Anti-DNA antibody, double-stranded Collection Time: 09/20/23 1:04 PM Result Value Ref Range Ds DNA 1 <5 IU/ML Rheumatoid factor Collection Time: 09/20/23 1:04 PM Result Value Ref Range Rheumatoid factor <10 <20 IU/mL Glomerular basement membrane IgG AB Collection Time: 09/20/23 1:04 PM Result Value Ref Range Glomerular basement membrane IgG AB <0.2 <1.0 AI Proteinase 3 AB PR3 Collection Time: 09/20/23 1:04 PM Result Value Ref Range Proteinase 3 IgG AB <0.2 <1.0 AI Myeloperoxidase AB Collection Time: 09/20/23 1:04 PM Result Value Ref Range Myeloperoxidase AB <0.2 <1.0 AI Electrolyte panel Collection Time: 09/20/23 1:04 PM Result Value Ref Range Sodium 136 134 - 146 mmol/L Potassium, Bld 5.2 (H) 3.5 - 5.0 mmol/L Chloride 104 98 - 109 mmol/L CO2 18 (L) 22 - 32 mmol/L Anion gap 14 5 - 15 mmol/L Protime & INR Collection Time: 09/20/23 1:06 PM Result Value Ref Range Protime 66.8 (H) 9.8 - 13.2 sec Inr 6.1 (HH) 0.8 - 1.1 Bedside Glucose *Place/Obtain serum glucose if >500(>600 MRH) per glucometer. Collection Time: 09/20/23 5:03 PM Result Value Ref Range Bedside glucose 131 (H) 65 - 99 mg/dL Chloride, urine, random Collection Time: 09/20/23 8:00 PM Result Value Ref Range Chloride, Ur 96 mmol/L Sodium, urine, random Collection Time: 09/20/23 8:00 PM Result Value Ref Range Sodium Urine Random 103 mmol/L Protein creat ratio Collection Time: 09/20/23 8:00 PM Result Value Ref Range Urine creatinine 68.11 mg/dL Protein Urine Random 11,440 (H) <120 mg/L U/Pro/Elementary Teacher Ratio Calc 16.80 (H) <0.2 Urinalysis Collection Time: 09/20/23 8:00 PM Result Value Ref Range Color PINK (A) YELLOW^YELLOW Turbidity CLOUDY (A) CLEAR^CLEAR Specific gravity 1.020 1.003 - 1.035 Nitrite Negative Negative^Negative Ph urine 6.5 5.0 - 8.5 Leukocyte esterase MODERATE (A) Negative^Negative Protein 300 (A) Negative^Negative mg/dL Glucose, Ur Negative Negative^Negative mg/dL Ketones urine Negative Negative^Negative mg/dL Urobilinogen <1.1 <1.1 eu/dL Bilirubin, urine Negative Negative^Negative Hemoglobin Large (A) Negative^Negative RBC >720 (H) 0 - 5 /hpf WBC 185 (H) 0 - 5 /hpf Electrolyte panel Collection Time: 09/20/23 8:12 PM Result Value Ref Range Sodium 137 134 - 146 mmol/L Potassium, Bld 5.2 (H) 3.5 - 5.0 mmol/L Chloride 102 98 - 109 mmol/L CO2 18 (L) 22 - 32 mmol/L Anion gap 17 (H) 5 - 15 mmol/L Bedside Glucose *Place/Obtain serum glucose if >500(>600 MRH) per glucometer. Collection Time: 09/20/23 9:13 PM Result Value Ref Range Bedside glucose 139 (H) 65 - 99 mg/dL Electrolyte panel Collection Time: 09/21/23 1:57 AM Result Value Ref Range Sodium 140 134 - 146 mmol/L Potassium, Bld 5.4 (H) 3.5 - 5.0 mmol/L Chloride 103 98 - 109 mmol/L CO2 15 (L) 22 - 32 mmol/L Anion gap 22 (H) 5 - 15 mmol/L Basic Metabolic Panel Collection Time: 09/21/23 5:10 AM Result Value Ref Range Sodium 141 134 - 146 mmol/L Potassium, Bld 5.3 (H) 3.5 - 5.0 mmol/L Chloride 104 98 - 109 mmol/L CO2 16 (L) 22 - 32 mmol/L Anion gap 21 (H) 5 - 15 mmol/L BUN 103 (H) 5 - 27 mg/dL Creatinine 6.63 (H) 0.40 - 1.00 mg/dL Glucose 121 (H) 65 - 99 mg/dL Calcium 7.0 (L) 8.5 - 10.5 mg/dL eGFR (CKD-EPI)non-race dependent 6 (L) >59 ml/min/1.73sq.m Magnesium Collection Time: 09/21/23 5:10 AM Result Value Ref Range Magnesium 2.6 1.8 - 2.6 mg/dL Phosphorus Collection Time: 09/21/23 5:10 AM Result Value Ref Range Phosphorus 9.9 (H) 2.4 - 4.9 mg/dL CBC without diff Collection Time: 09/21/23 5:10 AM Result Value Ref Range White Blood Cells 10.0 4.0 - 11.0 X10E9/L RBC count 2.89 (L) 3.80 - 5.20 X10E12/L Hemoglobin 8.7 (L) 11.7 - 15.5 g/dL Hematocrit 26.9 (L) 35 - 47 % MCV 93 80 - 100 fL MCH 30.2 27 - 34 pg MCHC 32.4 32 - 36 g/dL RDW 20.0 (H) 11.5 - 15.0 % Platelets 59 (L) 150 - 450 X10E9/L MPV 11.4 7 - 12 fL Procalcitonin Collection Time: 09/21/23 5:10 AM Result Value Ref Range Procalcitonin 0.59 (H) <0.05 ng/mL CK Total Collection Time: 09/21/23 5:10 AM Result Value Ref Range Total CK 50 24 - 170 U/L Protime & INR Collection Time: 09/21/23 5:10 AM Result Value Ref Range Protime 24.0 (H) 9.8 - 13.2 sec Inr 2.1 (H) 0.8 - 1.1 Bedside Glucose *Place/Obtain serum glucose if >500(>600 MRH) per glucometer. Collection Time: 09/21/23 7:39 AM Result Value Ref Range Bedside glucose 132 (H) 65 - 99 mg/dL Glucose Results from last 7 days Lab Units 09/21/23 0739 09/21/23 0510 09/20/23 2113 09/20/23 1703 09/20/23 1245 09/20/23 0805 09/20/23 0744 09/20/23 0630 09/19/23 2329 BEDSIDE GLUCOSE mg/dL 132* -- 139* 131* 138* 187* -- 190* -- GLUCOSE mg/dL -- 121* -- -- -- -- 183* -- 100* Microbiology Results Procedure Component Value Units Date/Time Blood culture [[id number]] Collected: 09/19/23 234 Specimen: Blood Updated: 09/20/232233 Culture NO GROWTH <24 HRS Blood culture [[id number]] Collected: 09/19/232328 Specimen: Blood Updated: 09/20/232230 Culture NO GROWTH <24 HRS SARS/FLU A+B/RSV by NAAT/Molecular (M4RT Collection Tube) [[id number]] Collected: 09/19/232325 Specimen: Nasopharynx Updated: 09/20/23 0029 FLU A PCR Negative FLU B PCR Negative RSV by PCR Negative SARS CoV 2 BY PCR Not Detected Ventilator Invasive Hemodynamic [place] I/O last 3 completed shifts: In: 846.7 [P.O.:100; I.V.:375.1; IV Piggyback:371.6] Out: 60 [Urine:60] No intake/output data recorded. bumetanide, 3 mg, intravenous, BID cefTRIAXone (ROCEPHIN) IV, 1,000 mg, intravenous, Q24H famotidine, 20 mg, oral, Q48H hydrocortisone sodium succinate, 50 mg, intravenous, Q6H insulin lispro, 2-10 Units, subcutaneous, With meals and nightly midodrine, 10 mg, oral, TID sevelamer, 800 mg, oral, TID with meals sodium chloride, 3 mL, intravenous, Q12H sodium zirconium cyclosilicate, 10 g, oral, Daily with lunch dextrose 5 % in water, 100 mL/hr norepinephrine, 0.01-0.2 mcg/kg/min, Last Rate: 0.02 mcg/kg/min (09/21/23729) sodium chloride 0.9 %, 10 mL/hr sodium chloride 0.9 %, 10 mL/hr, Last Rate: 10 mL/hr (09/21/23 0734) sodium chloride 0.9 %, 10 mL/hr, Last Rate: 10 mL/hr (09/21/23 0600) sodium chloride 0.9 %, 20 mL/hr Greer Leggett PA-C 09/21/23 0944 Images from the original note were not included. NEPHROLOGY PROGRESS NOTE Assessment Acute kidney injury possibly secondary to prerenal etiology along with concerns of acute tubular necrosis, on likely underlying chronic kidney disease stage IV baseline renal function unknown serum creatinine 2020 normal, recent serum creatinine at 1.8 mg/dL prior to hospitalization. Renal function continuing to worsen creatinine now 6.6 mg/dL with patient being refractory to diuretics with ongoing acidemia and hyperkalemia. Will initiate on dialysis 09/21/2023 Hyperkalemia setting of ongoing renal insufficiency Anion gap metabolic acidosis setting of ongoing renal insufficiency Hyperphosphatemia setting of ongoing renal insufficiency Anemia of chronic disease, rule out iron deficiency Supratherapeutic INR, improved Hypertension, blood pressure currently stable Atrial fibrillation with history of ablation, on Coumadin at home Diabetes mellitus type 2, management per primary On chronic systolics congestive heart failure, currently compensated Volume status: Hypervolemic with +2 pitting edema bilaterally, positive thigh edema. Plan Patient refractory to IV diuretics, given worsening renal function and ongoing electrolyte imbalance will initiate hemodialysis Will discuss with critical care service to place acute Trialysis catheter Hemodialysis for session today Renal panel daily Strict I&Os Monitor for renal recovery Maintain map greater than 65 Continue ProAmatine Wean off pressors as tolerated Plan discussed with bedside nurse Continue Renvela Continue low potassium and phosphorus diet Maintain Dasilva catheter Interval history Patient seen examined at bedside. Remains on low-dose pressor support. Remains aneuric only 60 cc of urine output documented over the last 24 hours. Problem List Acute kidney injury possibly secondary to prerenal etiology along with concerns of acute tubular necrosis, on likely underlying chronic kidney disease stage IV baseline renal function unknown serum creatinine 2020 normal, recent serum creatinine at 1.8 mg/dL prior to hospitalization. Renal ultrasound from 09/04/2023 showing right kidney 10.8 cm, left kidney 10.9 cm, no hydronephrosis noted. Hyperkalemia Anion gap metabolic acidosis Hyperphosphatemia Supratherapeutic INR Hypertension Atrial fibrillation with history of ablation Diabetes mellitus type 2 Chronic systolics congestive heart failure Hyperlipidemia Echocardiogram performed 09/04/2023 showing systolic function low EF 40-45% with left ventricular hypertrophy noted. Xcau-lo-lyzizcow mitral regurgitation noted. Moderate tricuspid regurgitation noted. Diastolic function indeterminate due to atrial fibrillation. Right ventricle size normal systolic function mildly reduced. Physical Exam Admission Weight: Weight: 131.8 kg (290 lb 9.1 oz) I/O last 3 completed shifts: In: 846.7 [P.O.:100; I.V.:375.1; IV Piggyback:371.6] Out: 60 [Urine:60] Weight change: Wt Readings from Last 3 Encounters: 09/21/23 132.3 kg (291 lb 10.7 oz) 09/19/23 132 kg (291 lb) 09/05/23 114.3 kg (252 lb) Vitals: Vitals: 09/21/23 0630 09/21/23 0645 09/21/23 0700 09/21/23 0715 BP: 101/66 94/59 97/78 109/60 Pulse: 96 103 93 97 Resp: 17 16 19 17 Temp: 36.1 C (97 F) TempSrc: Axillary SpO2: 97% 96% 98% 96% Weight: Height: General: Alert, oriented x 3 and in no obvious distress Psychiatric: Has a normal mood and affect. HEENT: Head normocephalic. Eyes: Conjunctivae and EOM are normal. Pupils are equal, round and reactive to light. Cardiovascular: Normal rate, regular rhythm and normal heart sounds. No JVD. Pulmonary/Chest: Air entry bilaterally equal. No wheezes or rales. Abdominal: Soft, bowel sounds are normal and there was no tenderness rebound or guarding. Musculoskeletal: Normal range of motion. No tenderness. Neurological: No obvious deficits. Skin: No rash noted. Extremities: +2 pitting edema bilaterally, positive thigh edema Meds: Current Meds: bumetanide, 3 mg, intravenous, BID cefTRIAXone (ROCEPHIN) IV, 1,000 mg, intravenous, Q24H famotidine, 20 mg, oral, Q48H hydrocortisone sodium succinate, 50 mg, intravenous, Q6H insulin lispro, 2-10 Units, subcutaneous, With meals and nightly midodrine, 10 mg, oral, TID sevelamer, 800 mg, oral, TID with meals sodium chloride, 3 mL, intravenous, Q12H sodium zirconium cyclosilicate, 10 g, oral, Daily with lunch Continuous Infusions: dextrose 5 % in water, 100 mL/hr norepinephrine, 0.01-0.2 mcg/kg/min, Last Rate: 0.02 mcg/kg/min (09/21/23 0730) sodium chloride 0.9 %, 10 mL/hr sodium chloride 0.9 %, 10 mL/hr, Last Rate: 10 mL/hr (09/21/23 0734) sodium chloride 0.9 %, 10 mL/hr, Last Rate: 10 mL/hr (09/21/23 0600) sodium chloride 0.9 %, 20 mL/hr Laboratory Studies Results from last 7 days Lab Units 09/21/23 0510 09/21/23 0157 09/20/23201109/20/23 1304 09/20/23 0744 09/19/23 2329 SODIUM mmol/L 141 140 137 < > 136 133* POTASSIUM mmol/L 5.3* 5.4* 5.2* < > 5.4* 4.9 CHLORIDE mmol/L 104 103 102 < > 104 108 CO2 mmol/L 16* 15* 18* < > 16* 15* BUN mg/dL 103* -- -- -- 90* 99* CREATININE mg/dL 6.63* -- -- -- 6.01* 6.52* CALCIUM mg/dL 7.0* -- -- -- 7.1* 7.1* PHOSPHORUS mg/dL 9.9* -- -- -- 9.2* -- MAGNESIUM mg/dL 2.6 -- -- -- 2.6 2.9* < > = values in this interval not displayed. Results from last 7 days Lab Units 09/21/23 0510 09/20/23 0744 09/19/23 2329 WBC X10E9/L 10.0 9.7 8.1 HEMOGLOBIN g/dL 8.7* 10.1* 9.6* HEMATOCRIT % 26.9* 31.1* 29.5* PLATELETS X10E9/L 59* 67* 62* Results from last 7 days Lab Units 09/21/23 0510 09/20/23 0744 09/19/23 2329 MAGNESIUM mg/dL 2.6 2.6 2.9* Lab Results Component Value Date CALCIUM 7.0 (L) 09/21/2023 Lab Results Component Value Date IRON 65 09/20/2023 TIBC 400 09/20/2023 FERRITIN 40 09/20/2023 Please contact me at [phone] (Office) or [phone] (Answering service) with any questions. Dede Rivera DO [facility] This note was created with the assistance of a speech-recognition program. Although the intention is to generate a document that actually reflects the content of the visit, no guarantees can be provided that every mistake has been identified and corrected by editing. Images from the original note were not included. Santino Brambila Jr., M.D., Juan J Robles Jr., M.D., Silvano Carlos M.D., Krystal Sepulveda M.D., Jamaal Lanier M.D., Candice Solis M.D., Luly Downs M.D, Eliseo Muniz M.D., Sonya Correa M.D., Tylor Irvin M.D. Urology Progress Note Patient: Harris Castrejon Date of : 1955 INTERVAL HISTORY: No acute events overnight Patient remains afebrile and vital signs stable Continues to have minimal urine output, 60 cc overnight Renal ultrasound obtained yesterday which showed no hydronephrosis, Dasilva catheter within bladder, and bladder collapsed WBC 10 Creatinine 6.63 (6.01) Dasilva catheter in place with rona/brown colored urine Physical Exam: This a 68 y.o. patient Patient Vitals for the past 24 hrs: BP Temp Temp src Pulse Resp SpO2 Height Weight 09/21/23 0715 109/60 36.1 C (97 F) Axillary 97 17 96 % -- -- 09/21/23 0700 97/78 -- -- 93 19 98 % -- -- 09/21/23 0645 94/ -- -- 103 16 96 % -- -- 09/21/23 0630 101/ -- -- 96 17 97 % -- -- 09/21/23 0615 98/ -- -- 92 17 97 % -- -- 09/21/23 0600 94/ -- -- 84 14 97 % -- -- 09/21/23 0553 -- -- -- 91 16 97 % -- -- 09/21/23 0545 / -- -- 95 16 97 % -- -- 09/21/23 0530 / -- -- 90 16 98 % -- -- 09/21/23 0515 / -- -- 96 17 97 % -- -- 09/21/23 0500 / -- -- 85 17 97 % -- 132.3 kg (291 lb 10.7 oz) 09/21/235 -- -- 88 17 97 % -- -- 09/21/23 0430 -- -- 86 17 97 % -- -- 09/21/23 0415 -- -- 83 14 97 % -- -- 09/21/23 0400 / -- -- 87 17 97 % -- -- 09/21/23 0345 (!) / 36.5 C (97.7 F) Oral 90 17 97 % -- -- 09/21/23 0336 -- -- -- 95 16 97 % -- -- 09/21/23 0330 / -- -- 81 15 97 % -- -- 09/21/23 0315 / -- -- 91 16 97 % -- -- 09/21/23 0300 -- -- 93 15 98 % -- -- 09/21/23 0245 / -- -- 88 17 97 % -- -- 09/21/23 0230 -- -- 97 21 96 % -- -- 09/21/23 0215 -- -- 91 14 95 % -- -- 12/23/23 0208 -- -- -- 82 17 97 % -- -- 09/21/23199 106/78 -- -- 102 17 97 % -- -- 09/21/23 0145 103/64 -- -- 92 17 94 % -- -- 09/21/23 0130 96/ -- -- 85 17 98 % -- -- 09/21/235 101/ -- -- 94 18 98 % -- -- 09/21/23 0100 102/63 -- -- 90 17 98 % -- -- 09/21/23 0045 100/ -- -- 79 15 98 % -- -- 09/21/23 0030 (!) -- -- 87 16 98 % -- -- 09/21/23 0015 94/58 -- -- 86 15 98 % -- -- 09/21/23 0000 100/ -- -- 88 17 98 % -- -- 09/20/232354 -- -- -- 80 17 99 % -- -- 09/20/232344 97/70 36.4 C (97.5 F) Oral 84 16 98 % -- -- 09/20/232329 99/74 -- -- 94 15 98 % -- -- 09/20/232315 -- -- -- 93 16 99 % -- -- 09/20/232314 108/76 -- -- 89 16 99 % -- -- 09/20/232299 103/73 -- -- 89 17 100 % -- -- 09/20/232244 96/ -- -- 85 13 99 % -- -- 09/20/232229 91/ -- -- 91 15 96 % -- -- 09/20/232214 98/ -- -- 86 16 96 % -- -- 09/20/232204 -- -- -- 81 14 97 % -- -- 09/20/232199 94/80 -- -- 94 17 95 % -- -- 09/20/232144 101/ -- -- 86 16 99 % -- -- 09/20/232129 102/ -- -- 87 17 98 % -- -- 09/20/232114 90/58 -- -- 83 17 98 % -- -- 09/20/232099 -- -- 89 15 97 % -- -- 09/20/232044 -- -- 87 15 96 % -- -- 09/20/232029 (!) 89/68 -- -- 81 15 97 % -- -- 09/20/232021 -- -- -- 84 16 99 % -- -- 09/20/232014 104/81 -- -- 78 18 99 % -- -- 09/20/231999 108/67 -- -- 80 18 99 % -- -- 09/20/23 194 106/66 36.4 C (97.5 F) Axillary 86 14 99 % -- -- 09/20/23 1930 103/73 -- -- 83 17 99 % -- -- 09/20/23 1915 96/72 -- -- 101 16 97 % -- -- 09/20/23 1900 (!) 87/59 -- -- 99 12 92 % -- -- 09/20/23 1845 93/ -- -- 88 13 92 % -- -- 09/20/23 1800 91/ -- -- 85 12 96 % -- -- 09/20/23 1700 93/70 -- -- 69 13 98 % -- -- 09/20/23 1645 101/69 -- -- -- -- -- -- -- 09/20/23 1600 (!) 74/60 (!) 34.3 C (93.7 F) Axillary 83 (!) 8 95 % -- -- 09/20/23 1510 -- -- -- -- -- -- 165.1 cm (5' 5 ) -- 09/20/23 1500 104/79 -- -- 99 14 100 % -- -- 09/20/23 1400 (!) 81/65 -- -- 86 15 96 % -- -- 09/20/23 1311 92/73 -- -- 87 13 95 % -- -- 09/20/23 1200 91/70 (!) 33.7 C (92.7 F) Axillary 84 15 97 % -- -- 09/20/23 1100 (!) 79/58 -- -- 80 11 95 % -- -- 09/20/23 1000 93/58 -- -- 97 14 98 % -- -- 09/20/23 0900 (!) 82/57 -- -- 64 12 94 % -- 131.8 kg (290 lb 9.1 oz) 09/20/23 0800 (!) 88/72 (!) 32.7 C (90.9 F) Axillary 89 13 100 % -- -- Constitutional: Patient in no acute distress Neuro: alert and oriented to person place and time. Skin: Normal, skin dry and warm, no visible rashes or lesions Respiratory: Nonlabored breathing on room air Cardiovascular: Regular rate and rhythm Abdomen: Soft, non-tender, non-distended, no signs of peritonitis exam: no suprapubic tenderness, no flank pain Lines/drains: Dasilva in place with brown urine LABS: Results from last 7 days Lab Units 09/21/23 0510 09/20/23 0744 09/19/23 2329 WBC X10E9/L 10.0 9.7 8.1 HEMOGLOBIN g/dL 8.7* 10.1* 9.6* HEMATOCRIT % 26.9* 31.1* 29.5* PLATELETS X10E9/L 59* 67* 62* Results from last 7 days Lab Units 09/21/23 0739 09/21/23 0510 09/21/23 0157 09/20/23 2113 09/20/23201109/20/23 0805 09/20/23 0744 09/20/23 0630 09/19/23 2329 POTASSIUM mmol/L -- 5.3* 5.4* -- 5.2* < > 5.4* -- 4.9 CHLORIDE mmol/L -- 104 103 -- 102 < > 104 -- 108 CO2 mmol/L -- 16* 15* -- 18* < > 16* -- 15* BUN mg/dL -- 103* -- -- -- -- 90* -- 99* CREATININE mg/dL -- 6.63* -- -- -- -- 6.01* -- 6.52* BEDSIDE GLUCOSE mg/dL 132* -- -- < > -- < > -- < > -- GLUCOSE mg/dL -- 121* -- -- -- -- 183* -- 100* CALCIUM mg/dL -- 7.0* -- -- -- -- 7.1* -- 7.1* < > = values in this interval not displayed. No results found for: PSA Urinalysis: Lab Results Component Value Date COLOR PINK (A) 09/20/2023 TURBIDITY CLOUDY (A) 09/20/2023 SPECIFICGRA 1.020 09/20/2023 NITRITE Negative 09/20/2023 PHURINE 6.5 09/20/2023 LEUKOCYTE MODERATE (A) 09/20/2023 PROTEIN 300 (A) 09/20/2023 KETONES Negative 09/20/2023 UROBILINOGEN <1.1 09/20/2023 BLOODHGB Large (A) 09/20/2023 Assessment and Plan Assessment: Gross hematuria - unknown etiology. Patient had supratherapeutic INR when gross hematuria was initially encountered. Urine is now rona/brown. Acute kidney injury - most likely prerenal or intrarenal causes. No signs of obstructive uropathy. Renal ultrasound showing no hydronephrosis. Bladder decompressed with Dasilva catheter in place Plan: No further urologic interventions at this time Dasilva catheter per ICU Catheter can come out when no longer needed for tracking of intake and output Would recommend sending urinalysis sample for urine culture Patient will eventually require full gross hematuria workup with possible cystoscopy and upper tract imaging This can be organized on an outpatient basis Urology service will sign off at this time. Please reach out if there are any issues Pily Lay MD Urology Resident, PGY-2 [facility] [place] 10-05-2023 Miscellaneous Notes Problem: Pain Goal: Patient goal is pain score less than 4, able to rest, and participant in treatment plan as appropriate Description: INTERVENTIONS: 1. Encourage patient or legal motor vehicle representative to report early pain and ask for pain medicine when needed 2. Assess pain using appropriate pain scale and include the scale used when documenting 3. Administer analgesics based on type and severity of pain and evaluate response within appropriate time frame 4. Implement non-pharmacological measures as appropriate and evaluate response 5. Consider cultural and social influences on pain and pain management 6. Notify LIP if interventions ineffective or patient reports new pain 7. Monitor vital signs including pulse ox, end-tidal CO2 based on pain intervention 8. Reassess pain per policy 9. Teach patient or legal motor vehicle representative interventions for comforting Outcome: Progressing Note: Evaluation of progress towards goal: Verbalizes adequate comfort level. Pt denies pain. Please see MAR for pain management orders. Problem: Safety Goal: Patient will be injury free during hospitalization Description: INTERVENTIONS: 1. Assess patient's risk for falls and implement fall prevention plan of care per policy 2. Provide and maintain a safe environment 3. Proper use of double Identifiers 4. Medication administration using the 5 rights 5. Hand hygiene 6. Specimens are labeled at the bedside 7. Instruct patient/ patient motor vehicle representative about use of safety devices 8. Include patient/ patient motor vehicle representative in decisions related to safety Outcome: Progressing Note: Evaluation of progress towards goal: pt will remain injury free this shift. Problem: Knowledge Deficit Goal: Patient/patient motor vehicle representative demonstrates understanding of disease process, treatment plan, medications, and discharge instructions Description: INTERVENTIONS 1. Complete learning assessment and assess knowledge base 2. Provide teaching at level of understanding 3. Provide teaching via preferred learning method(s) Outcome: Progressing Note: Evaluation of progress towards goal: . Verbalizes understanding of current treatment plan as educated. Will continue to educate for understanding. Problem: Discharge Planning Goal: Discharge to post-acute care, other facility, or home with appropriate resources Description: Patient's goal is: INTERVENTIONS 1. Conduct assessment to determine patient/family and health care team treatment goals, and need for post-acute services based on payer coverage, community resources, and patient preferences, and barriers to discharge 2. Coordinate with Social work, Care Navigation, and Utilization Review to arrange appropriate level of services according to patient's needs based on patient preference and payer coverage in collaboration with the physician and health care team 3. Address psychosocial, clinical, and financial barriers to discharge as identified in assessment in conjunction with the patient/family and health care team 4. Consult appropriate ancillary services (i.e.. PT/OT/ST, etc) as needed 5. Communicate with and update the patient/family, physician, and health care team regarding progress on the discharge plan 6. Identify discharge learning needs (meds, wound care, etc). 7. Arrange for needed discharge transportation as appropriate Outcome: Progressing Note: Evaluation of progress towards goal: Discharge planning in process; will continue to monitor for discharge needs. DISCHARGE PLANNING NOTE Follow-up Discharge Planning Progress Note Barriers to discharge are: none Discharge Plan: 1200 BLS to home with family and [facility] [place]. CRF sent to [facility] via [employer]. Patient and family have continued to decline SNF or home DME arrangements. BLS cert complete in discharge packet. Care Navigation will continue to follow for 10/05/23 8:42 AM Problem: Pain Goal: Patient goal is pain score less than 4, able to rest, and participant in treatment plan as appropriate Description: INTERVENTIONS: 1. Encourage patient or legal motor vehicle representative to report early pain and ask for pain medicine when needed 2. Assess pain using appropriate pain scale and include the scale used when documenting 3. Administer analgesics based on type and severity of pain and evaluate response within appropriate time frame 4. Implement non-pharmacological measures as appropriate and evaluate response 5. Consider cultural and social influences on pain and pain management 6. Notify LIP if interventions ineffective or patient reports new pain 7. Monitor vital signs including pulse ox, end-tidal CO2 based on pain intervention 8. Reassess pain per policy 9. Teach patient or legal motor vehicle representative interventions for comforting Outcome: Progressing Note: Evaluation of progress towards goal: pt denies any pain. Problem: Safety Goal: Patient will be injury free during hospitalization Description: INTERVENTIONS: 1. Assess patient's risk for falls and implement fall prevention plan of care per policy 2. Provide and maintain a safe environment 3. Proper use of double Identifiers 4. Medication administration using the 5 rights 5. Hand hygiene 6. Specimens are labeled at the bedside 7. Instruct patient/ patient motor vehicle representative about use of safety devices 8. Include patient/ patient motor vehicle representative in decisions related to safety Outcome: Progressing Note: Evaluation of progress towards goal: pt remains free of injury Problem: Infection Goal: Absence of infection during hospitalization Description: Interventions: 1. Assess and monitor for signs and symptoms of infection 2. Monitor lab/diagnostic results 3. Monitor all insertion sites i.e., indwelling lines, tubes and drains 4. Monitor endotracheal (as able) and nasal secretions for changes in amount and color 5. Administer medications as ordered 6. Instruct and encourage patient and family to use good hand hygiene technique 7. Identify and instruct patient/patient motor vehicle representative in use of appropriate isolation precautions for identified infection/symptoms 8. Provide and discuss with patient/patient motor vehicle representative on educational MDRO sheet 9. Encourage and monitor nutritional status daily and consult hospital ward clerk if indicated 10. Implement neutropenic guidelines as needed 11. Review exposure to history of communicable disease and recent travel history on admission 12. Encourage annual influenza vaccine 13. Encourage pneumonia vaccine Outcome: Progressing Note: Evaluation of progress towards goal: pt afebrile. No s/sx of infection Problem: Glucose Imbalance Goal: Clinical indication of glucose balance is achieved Description: Patient's goal is: INTERVENTIONS 1. Monitor blood glucose levels as ordered 2. Administer medications as ordered 3. Notify physician of ineffective treatment plan Outcome: Progressing Note: Evaluation of progress towards goal: glucose checked AC/HS/prn Problem: Potential for Compromised Skin Integrity Goal: Skin integrity is maintained or improved Description: Patient's goal is: INTERVENTIONS 1. Perform initial skin assessment on admission and as needed 2. Turn patient every 2 hours and PRN 3. Relieve pressure to bony prominences 4. Avoid shearing 5. Keep skin clean and dry 6. Alternate a full bath with partial baths for elderly 7. Encourage use of lotion/moisturizer on skin 8. Monitor patient's hygiene practices 9. Float heels 10. Collaborate with interdisciplinary team and initiate plans and interventions as needed Outcome: Progressing Note: Evaluation of progress towards goal: pillow support, encouraged q2 turn, fungal powder applied to groin Problem: Moderate - High Risk Fall Score Description: Sepulveda Fall Score of =/> 25 or indicated by [facility] Assessment Goal: Patient should be free from fall Description: Interventions: 1. [place] to environment 2. Hourly rounds addressing the 4 P's (Pain, Positioning, Possessions, Potty) 3. Clear area of hazards (spills, clutter, electrical cords, unnecessary equipment) 4. Place equipment (bed & TV controls, call light, phone, urinal) within reach 5. Encourage patient to wear glasses and hearing aides as appropriate 6. Maintain bed in lowest position 7. Lock wheels on bed/wheelchair 8. Provide adequate lighting, including night light 9. Assess need for additional bedding, food/fluids, pain med's prior to sleep/routinely 10. Provide gripper slippers or personal non-skid footwear 11. Teach patient and patient motor vehicle representative to maintain environment for safety and engage in all aspects of fall prevention program 12. Remind patient to call for help before getting out of bed 13. Initiate bed/chair/exit alarms supportive devices as appropriate, (chair wedge, no-skid floor mat, raised edge mattress, hip protectors) 14. Locate patient bed assignment for optimal visualization 15. Evaluate and identify Safe Patient Handling Equipment needs 16. Provide supervision when out of bed or chair 17. Utilize gait belt as needed to assist with ambulation 18. Place adaptive equipment (cane, walker) within reach 19. Request patient motor vehicle representative bring adaptive equipment/mobility aids from home or obtain and provide as needed 20. Consult pharmacy regarding effects of med's affecting mobility, cognition, and alternatives 21. Obtain physician order for PT if risk factors associated with mobility are present 22. Obtain physician order for OT as appropriate 23. Utilize diversional activities 24. Educate patient and patient motor vehicle representative how to maintain a safe environment during visitation times (notify nurse prior to leaving bedside) 25. Consider appropriateness of medical or non-certified medical technician 26. Set up voiding schedule as appropriate (every 2 hours) Outcome: Progressing Note: Evaluation of progress towards goal: fall precautions maintained Problem: Hemodynamic Status Goal: Maintains optimal cardiac output and hemodynamic stability Description: Patient's goal is: INTERVENTIONS 1. Assess and monitor patient's heart rate, rhythm, respiratory rate, peripheral pulses, capillary refill, color, body temperature, intake and output 2. Monitor labs and diagnostic testing 3. Observe for signs of chest pain (note location, duration, severity, radiation and associated symptoms such as diaphoresis, nausea, indigestion) 4. Monitor for signs and symptoms of heart failure (i.e. shortness of breath, edema of feet/ankles/legs, rapid irregular heart rate, coughing, wheezing, white/pink blood tinged sputum, sudden weight gain, chest pain) 5. Plan activities to conserve energy 6. Monitor for signs and symptoms of bleeding Outcome: Progressing Problem: Excessive Fluid Volume Goal: Fluid and electrolyte balance are achieved/maintained Description: INTERVENTIONS 1. Monitor vitals signs oxygen saturation, respiratory status to include rate, depth, effort, and lung sounds, ) urine color, labs, edema, jugular venous distention, and mental status 2. Monitor patient's weight 3. Monitor intake and output 4. Elevate head of bed 30 degrees 5. Turn patient 6. Monitor low sodium and fluid restriction diet per physician order 7. Collaborate with interdisciplinary team and initiate plan and interventions as ordered Outcome: Progressing Problem: Inadequate Gas Exchange Goal: Patient is adequately oxygenated and ventilation is improved Description: Patient's goal is: INTERVENTIONS 1. Monitor vital signs, oxygen saturation, respiratory status to include rate, depth, effort, lung sounds, mental status, cyanosis, and labs (ABGs) 2. Administer oxygen as indicated 3. Position patient to optimize gas exchange 4. Instruct patient to turn, cough, and deep breathe; encourage incentive spirometer if indicated 5. Collaborate with Respiratory Therapy for inhaled medication and therapeutic adjuncts 6. Assess skin when indicated 7. Coordinate care and interventions to conserve energy 8. Educate and offer resources for tobacco cessation, if indicated Outcome: Progressing Problem: Activity Intolerance/Impaired Mobility Goal: Mobility/activity is maintained at optimum level for patient Description: Patient's goal is: INTERVENTIONS 1. Assess and monitor patient barriers to mobility and need for assistive/adaptive devices 2. Assess patient's emotional response to limitations 3. Collaborate with interdisciplinary teams and initiate plans and interventions as ordered 4. Encourage independent activity per tolerance 5. Maintain proper body alignment 6. Perform active/passive ROM as tolerated/ordered 7. Coordinate activities to conserve energy 8. Reposition patient 9. Ensure adequate rest/sleep time Outcome: Progressing Problem: Knowledge Deficit Goal: Patient/patient motor vehicle representative demonstrates understanding of disease process, treatment plan, medications, and discharge instructions Description: INTERVENTIONS 1. Complete learning assessment and assess knowledge base 2. Provide teaching at level of understanding 3. Provide teaching via preferred learning method(s) Outcome: Not Progressing Note: Evaluation of progress towards goal: pt non-participatory in disease process education this shift. Problem: Potential for Compromised Skin Integrity Goal: Patient's nutritional intake is adequate Description: Patient's goal is: INTERVENTIONS 1. Assess and monitor food intake and supplements, patient food preferences, nausea, vomiting, labs, oral cavity (gums, teeth, tongue, mucosa), proper denture fit, and cultural beliefs 2. Monitor for signs of hypoglycemia and hyperglycemia 3. Collaborate with interdisciplinary team and initiate plan and interventions as ordered 4. Monitor patient's weight 5. Assist patient with meals/food selection 6. Assist patient with eating 7. Allow adequate time for meals 8. Provide pleasant environment during mealtime 9. Increase social contact during mealtimes 10. Plan activities to conserve energy 11. Encourage/perform oral hygiene as appropriate 12. Encourage patient to take dietary supplement as ordered 13. Collaborate with clinical hospital ward clerk 14. Include patient/ patient's motor vehicle representative in decisions related to nutrition Outcome: Not Progressing Note: Evaluation of progress towards goal: pt refusing to eat today. Educated on important of good nutrition. Problem: Urinary Incontinence Goal: Perineal skin integrity is maintained or improved Description: INTERVENTIONS 1. Assess genitourinary system, perineal skin, labs (urinalysis), and history of incontinence to include past management, aggravating, and alleviating factors 2. Keep skin clean and dry 3. Apply skin protectant 4. Develop skin care regimen 5. Provide privacy when changing patients incontinence device to maintain their dignity 6. Consider placing an indwelling catheter 7. Collaborate with interdisciplinary team and initiate plans and interventions as needed Outcome: Not Progressing Note: Evaluation of progress towards goal: pt not notifying staff when she needs a bedpan. DISCHARGE PLANNING NOTE BLS transport via PTN to patient's home 10/04/23 at 22:59 but I was told most likely after midnight. Spoke with Mauricio garay [facility]. Rescheduled with call back. BLS transport via PTN to patient's home 10/05/23 at 12:00pm. Spoke with Mauricio garay [facility]. Occupational Therapy Treatment Discharge Recommendations OT Recommendations : Care Home Facility SNF/ECF Comments: pt is a very high fall risk. she is not able to complete any aspect of functional mobility or ADLs without assist. She is unable to stand. pt would benefit from skilled OT in order to increase her strength, endurnace and balance to return to PLOF. 6 Clicks: Daily Activity Putting on and taking off regular lower body clothing?: A lot Bathing (including washing, rinsing, drying)?: A lot Toileting, which includes using toilet, bedpan or urinal?: A lot Putting on and taking off regular upper body clothing?: A lot Taking care of personal grooming such as brushing teeth?: A little Eating meals?: None Scoring Daily Activity Raw Score: 15 CMS G Code Modifier: CK OT Treatment/Interventions: ADL retraining, Functional transfer training, UE strengthening/ROM, LE strengthening/ROM, Endurance training, Patient/family training, Equipment eval/education, Balance, Bed mobility, Compensatory technique education, Functional activities OT Frequency: 6-7days/week Assessment Patient Assessment Patient Response to Treatment: Slow progress, decreased activity tolerance Visit RN Communication: Yes Medical Record Reviewed: Yes OT Type of Visit: Treatment Precautions Activity: early mobility / pass, ok to see per Albaro CANTU Equipment: gait belt, connie gipson RW, external female catheter Telemetry/Public Works Commissioner: Yes Oxygen Used: room air Other: high fall risk Pain Assessment Pain Assessment: No/denies pain ADL / IADL Where Assessed: Chair Grooming Assistance: Setup, Min assist, Mod assist Grooming Deficit: Supervision/safety, Increased time to complete, Wash/dry face, Brushing hair, Oral hygiene Other: pt. sat in chair and completed simple grooming tasks working on independence in ADLs. pt. required mod a for brushing hair d/t knots in back of head - difficulty noted with brushing them out and increased time to complete. Pt. then set up to brush teeth/dentures - required min A for FMC tasks including opening/donning toothpaste. Pt. able to wash face/hands independently after set up. Home Management - IADL Other: pt. sat in chair and completed simple grooming tasks working on independence in ADLs. pt. required mod a for brushing hair d/t knots in back of head - difficulty noted with brushing them out and increased time to complete. Pt. then set up to brush teeth/dentures - required min A for FMC tasks including opening/donning toothpaste. Pt. able to wash face/hands independently after set up. Hearing / Speech / Vision Hearing: Hard of hearing/hearing concerns Speech: Within Functional Limits Cognition Orientation Level: Oriented X4 Insight of Deficits: Decreased awareness of deficits Other: Encouragement provided to complete all tasks. Bed Mobility Supine to Sit: Max assist (of 2) Sit to Supine: Unable to assess Other: with HOB elevated - cues for technique and encouraged to utilize bed rail. pt. required max A of 2 for trunk support and BLE to get OOB with increased time/effort. Assistance provided for line management. Pt. left sitting in chair at end of tx. session with call light in reach, tray table near and RN aware. Transfers Sit to Stand: Min assist, Mod assist (of 2) Stand to Sit: Min assist, Mod assist (of 2) Bed to Chair: Total assist (connie stedy) Other: pt. initially required min A of 2 for transfers with use of connie stedy - cues for technique/use of grab bars. Attempted further sit/stands with use of RW - required increased assistance of mod A of 2. Pt. educated on use of body momentum to assist with transitions. Gait Other: NT due to poor standing tolerance Balance Sitting Balance: Static: Fair (+) Sitting Balance: Dynamic: Fair Standing Balance: Static: Poor Other: Pt. able to tolerate sitting unsupported for approx. 8 minutes while completing ADL tasks and ther ex - working on sitting balance/endurance and core strengthening. Worked on static standing balance in connie stedy - approx. 5 seconds x2 despite max encouragement. Stood 1x with use of RW - tolerated approx. 1 minute with 2 posterior LOB, max A to correct. Activity Tolerance Endurance: Tolerates >30 minutes activity with rest breaks Other: limited due to fatigue, weakness and dec activity tolerance, inc time/effort and frequent rest breaks required. extensive education given on safe discharge recommendation as pt is a high fall risk and is unable to ambulate at this time. Plan Occupational Therapy Care Plan Occupational Therapy Care Plan (Active) Template: OT - Occupational Therapy Problem: Activity Tolerance Dates: Start: 10/02/23 Disciplines: OT Goal: Tolerate > 30 minutes of activity WITHOUT rest breaks Dates: Start: 10/02/23 Expected End: 10/30/23 Description: Goal Description: Disciplines: OT Outcomes Date/Time User Outcome 10/04/23 1352 LOCO Smith Not Progressing Goal Note filed on 10/04/23 1352 by LOCO Smith Evaluation of progress towards goal: Problem: Bed Mobility Dates: Start: 10/02/23 Disciplines: OT Goal: Patient will perform bed mobility with Modified [place] Dates: Start: 10/02/23 Expected End: 10/30/23 Description: Goal Description: Disciplines: OT Outcomes Date/Time User Outcome 10/04/23 1352 LOCO Smith Not Progressing Goal Note filed on 10/04/23 135 by LOCO Smith Evaluation of progress towards goal: Problem: Functional Mobility Dates: Start: 10/02/23 Disciplines: OT Goal: Patient will perform functional mobility with Modified [place] Dates: Start: 10/02/23 Expected End: 10/30/23 Description: Goal Description: Disciplines: OT Outcomes Date/Time User Outcome 10/04/23 1352 LOCO Smith Not Progressing Goal Note filed on 10/04/23 135 by LOCO Smith Evaluation of progress towards goal: Problem: Other (Customize) Dates: Start: 10/02/23 Disciplines: OT Goal: Improve Dates: Start: 10/02/23 Expected End: 10/30/23 Description: Goal Description: Complete ADLs Jenna Disciplines: OT Outcomes Date/Time User Outcome 10/04/23 1352 LOCO Smith Not Progressing Goal Note filed on 10/04/23 135 by LOCO Smith Evaluation of progress towards goal: Problem: Sitting Balance Dates: Start: 10/02/23 Disciplines: OT Goal: Improve balance to good Dates: Start: 10/02/23 Expected End: 10/30/23 Description: Static Dynamic Disciplines: OT Outcomes Date/Time User Outcome 10/04/23 1352 LOCO Smith Progressing Goal Note filed on 10/04/23 1352 by LOCO Smith Evaluation of progress towards goal: Problem: Standing Balance Dates: Start: 10/02/23 Disciplines: OT Goal: Improve balance to good Dates: Start: 10/02/23 Expected End: 10/30/23 Description: Static Dynamic Disciplines: OT Outcomes Date/Time User Outcome 10/04/23 1352 LOCO Smith Not Progressing Goal Note filed on 10/04/23 1352 by LOCO Smith Evaluation of progress towards goal: Problem: Strength Dates: Start: 10/02/23 Disciplines: OT Goal: Improve strength Dates: Start: 10/02/23 Expected End: 10/30/23 Description: Of extremity/ location: Tolerate bilat UE/LE exercises to increase strength and endurance for self care tasks To facilitate: Disciplines: OT Problem: Transfers Dates: Start: 10/02/23 Disciplines: OT Goal: Patient will perform transfers with Modified [place] Dates: Start: 10/02/23 Expected End: 10/30/23 Description: Goal Description: Disciplines: OT Outcomes Date/Time User Outcome 10/04/23 1352 LOCO Smith Not Progressing Goal Note filed on 10/04/23 135 by LOCO Smith Evaluation of progress towards goal: Occupational Therapy Care Plan (Resolved) There are no resolved problems. Principal Problem: Acute kidney injury ([facility]) Associated attestation - Connie Pablo OTR/L - 10/04/2023 2:19 PM EST I have reviewed and agree with this note and education documentation for this visit. Physical Therapy Treatment Discharge Recommendations PT Recommendations: Care Home Facility SNF/ECF Comments: pt is a very high fall risk. she is not able to complete any aspect of functional mobility without assist. She is unable to stand. pt would benefit from skilled PT in order to increase her strength, endurnace and balance to return to PLOF. 6 Clicks: Basic Mobility Turning from your back to your side while in a flat bed without using bed rails?: A lot Moving from lying on your back to sitting on side of flat bed without using bed rails?: A lot Moving to and from bed to a chair (including w/c)?: Total Standing up from a chair using your arms (e.g. w/c or bedside chair)?: A lot To walk in hospital room?: Total Climbing 3-5 steps with a railing?: Total Scoring 6 Clicks: Basic Mobility Raw Score: 9 [facility] G Code Modifier: CL PT Treatment/Interventions: Functional transfer training, UE strengthening/ROM, LE strengthening/ROM, Endurance training, Patient/family training, Equipment eval/education, Balance, Bed mobility, Gait training, Functional activities PT Frequency: 6-7days/week PT Duration: LOS Patient Response to Treatment: Slow progress, decreased activity tolerance Assessment Patient Assessment Therapy Problem List: Decreased balance, Decreased endurance, Decreased mobility, Decreased safe judgement during ADL, Decreased UE strength, Decreased LE strength Patient Response to Treatment: Slow progress, decreased activity tolerance Rehab Prognosis: Good, With continued PT status post acute discharge Visit RN Communication: Yes Medical Record Reviewed: Yes PT Type of Visit: Treatment Precautions Activity: early mobility / pass, ok to see per Albaro CANTU Equipment: gait belt, connie gipson, RW, external female catheter 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 inc time/effort. max assist x2 to complete. no c/o dizziness at EOB. pt up in the chair end of session with call light and tray table in reach. RN aware Transfers Sit to Stand: Min assist, Mod assist (x2) Stand to Sit: Min assist, Mod assist (x2) Bed to Chair: Total assist (connie stedy) Other: min assist x2 from EOB with connie gipson, mod assist x2 from recliner chair with RW, vc's for safe hand placement and technique, encouraged to use body momentum to assist with transitions. inc time/effort. pt unable to tolerate standing for long due to fatigue and weakness. Gait Other: NT due to poor standing tolerance Balance Sitting Balance: Static: Fair (+) Sitting Balance: Dynamic: Fair Standing Balance: Static: Poor Other: pt sat unsupported in the chair x 8 minutes for exercises, BUE support on arm rest for stability, stood with connie robbi approx 5 seconds x2 and approx 1 minute with RW, poor standing tolerance noted, while in RW pt had 2 posterior loss of balances, vc's to correct and maintain midline. Activity Tolerance Endurance: Tolerates 30 minutes activity with rest breaks Other: limited due to fatigue, weakness and dec activity tolerance, inc time/effort and frequent rest breaks required. extensive education given on safe discharge recommendation as pt is a high fall risk and is unable to ambulate at this time. 10/04/23 0917 LE Seated LE seated exercises performed? Yes Ankle pumps x Long arc quads x Seated marching x Hip abduction/adduction x Other verbal and visual cues for technique Repetitions 10 Plan Physical Therapy Care Plan Physical Therapy Care Plan (Active) Template: PT - Physical Therapy Problem: Activity Tolerance Dates: Start: 10/01/23 Disciplines: PT Goal: Tolerate 30 minutes of activity WITHOUT rest breaks Dates: Start: 10/01/23 Expected End: 10/15/23 Description: Goal Description: Disciplines: PT Outcomes Date/Time User Outcome 10/04/23 1252 Malorie Acosta, [employer] Progressing 10/02/23 1507 Domi Love, PT Progressing Goal Note filed on 10/02/23 1507 by Domi Love, PT Evaluation of progress towards goal: Problem: Bed Mobility Dates: Start: 10/01/23 Disciplines: PT Goal: Patient will perform bed mobility with Contact Guard Dates: Start: 10/01/23 Expected End: 10/15/23 Description: Goal Description: Disciplines: PT Outcomes Date/Time User Outcome 10/04/23 1252 Malorie Acosta, [employer]ER Progressing 10/02/23 1507 Domi Love, PT Not Progressing Goal Note filed on 10/02/23 1507 by Domi Love, PT Evaluation of progress towards goal: Problem: Gait Dates: Start: 10/01/23 Disciplines: PT Goal: Patient will perform gait with Minimum Assist Dates: Start: 10/01/23 Expected End: 10/15/23 Description: With___rw_,__50__feet Goal Description: Disciplines: PT Problem: Sitting Balance Dates: Start: 10/01/23 Disciplines: PT Goal: Improve balance to good Dates: Start: 10/01/23 Expected End: 10/15/23 Description: Static Dynamic Disciplines: PT Outcomes Date/Time User Outcome 10/04/23 1252 Malorie Acosta, [employer] TE[employer]ER Progressing 10/02/23 1507 Domi Love, PT Progressing Goal Note filed on 10/02/23 1507 by Domi Love PT Evaluation of progress towards goal: Problem: Standing Balance Dates: Start: 10/01/23 Disciplines: PT Goal: Improve balance to fair Dates: Start: 10/01/23 Expected End: 10/15/23 Description: Static Dynamic- with support of rw Disciplines: PT Outcomes Date/Time User Outcome 10/04/23 1252 Malorie Acosta, [employer] TEACHER Progressing Problem: Strength Dates: Start: 10/01/23 Disciplines: PT Goal: Improve strength Dates: Start: 10/01/23 Expected End: 10/15/23 Description: Of extremity/ location:Complete bilat UE/LE ex's x 20 reps To facilitate: Disciplines: PT Outcomes Date/Time User Outcome 10/04/23 1252 Malorie Acosta PTA Progressing 10/02/23 1507 Domi Love PT Progressing Goal Note filed on 10/02/23 1507 by Domi Love PT Evaluation of progress towards goal: Problem: Transfers Dates: Start: 10/01/23 Disciplines: PT Goal: Patient will perform transfers with Minimum Assist Dates: Start: 10/01/23 Expected End: 10/15/23 Description: Goal Description: Disciplines: PT Outcomes Date/Time User Outcome 10/04/23 1252 Malorie Acosta PTA Progressing 10/02/23 1507 Domi Love PT Not Progressing Goal Note filed on 10/02/23 1507 by Domi Love PT Evaluation of progress towards goal: Physical Therapy Care Plan (Resolved) There are no resolved problems. Principal Problem: Acute kidney injury ([facility]) Associated attestation - Domi Love PT - 10/04/2023 3:42 PM EST I have reviewed and agree with this note and education documentation for this visit. DISCHARGE PLANNING NOTE Follow-up Discharge Planning Progress Note Per RN during discharge transition rounds, barriers to discharge are: EP cardiology consult Discharge Plan: Home with family and [address] home health. Discussed with patient, spouse, and son again today at the bedside, they continue to decline SNF. Offered assistance obtaining additional DME, likely commode, shower chair, hospital bed etc, they decline this as well. She will require BLS transport. BLS cert complete in discharge packet. Care Navigation will continue to follow for any discharge needs. 10/04/23 10:51 AM Notified by that patient has been cleared by EP Cardiology and is ready for discharge. She requires BLS transport, but no trips available until around midnight tonight at the earliest. BLS transport arranged for 1200 tomorrow 10/05/23. Home health updated. Requested RN to update patient and family. 10/04/23 4:28 PM Problem: Pain Goal: Patient goal is pain score less than 4, able to rest, and participant in treatment plan as appropriate Description: INTERVENTIONS: 1. Encourage patient or legal motor vehicle representative to report early pain and ask for pain medicine when needed 2. Assess pain using appropriate pain scale and include the scale used when documenting 3. Administer analgesics based on type and severity of pain and evaluate response within appropriate time frame 4. Implement non-pharmacological measures as appropriate and evaluate response 5. Consider cultural and social influences on pain and pain management 6. Notify LIP if interventions ineffective or patient reports new pain 7. Monitor vital signs including pulse ox, end-tidal CO2 based on pain intervention 8. Reassess pain per policy 9. Teach patient or legal motor vehicle representative interventions for comforting Outcome: Progressing Note: Evaluation of progress towards goal: pt denies any pain currently. Problem: Safety Goal: Patient will be injury free during hospitalization Description: INTERVENTIONS: 1. Assess patient's risk for falls and implement fall prevention plan of care per policy 2. Provide and maintain a safe environment 3. Proper use of double Identifiers 4. Medication administration using the 5 rights 5. Hand hygiene 6. Specimens are labeled at the bedside 7. Instruct patient/ patient motor vehicle representative about use of safety devices 8. Include patient/ patient motor vehicle representative in decisions related to safety Outcome: Progressing Note: Evaluation of progress towards goal: pt remains free of injury Problem: Infection Goal: Absence of infection during hospitalization Description: Interventions: 1. Assess and monitor for signs and symptoms of infection 2. Monitor lab/diagnostic results 3. Monitor all insertion sites i.e., indwelling lines, tubes and drains 4. Monitor endotracheal (as able) and nasal secretions for changes in amount and color 5. Administer medications as ordered 6. Instruct and encourage patient and family to use good hand hygiene technique 7. Identify and instruct patient/patient motor vehicle representative in use of appropriate isolation precautions for identified infection/symptoms 8. Provide and discuss with patient/patient motor vehicle representative on educational MDRO sheet 9. Encourage and monitor nutritional status daily and consult hospital ward clerk if indicated 10. Implement neutropenic guidelines as needed 11. Review exposure to history of communicable disease and recent travel history on admission 12. Encourage annual influenza vaccine 13. Encourage pneumonia vaccine Outcome: Progressing Note: Evaluation of progress towards goal: pt afebrile. No s/sx of infection Problem: Glucose Imbalance Goal: Clinical indication of glucose balance is achieved Description: Patient's goal is: INTERVENTIONS 1. Monitor blood glucose levels as ordered 2. Administer medications as ordered 3. Notify physician of ineffective treatment plan Outcome: Progressing Note: Evaluation of progress towards goal: glucose checked AC/HS/PRN Problem: Moderate - High Risk Fall Score Description: Sepulved[place] Fall Score of =/> 25 or indicated by [facility] Assessment Goal: Patient should be free from fall Description: Interventions: 1. [place] to environment 2. Hourly rounds addressing the 4 P's (Pain, Positioning, Possessions, Potty) 3. Clear area of hazards (spills, clutter, electrical cords, unnecessary equipment) 4. Place equipment (bed & TV controls, call light, phone, urinal) within reach 5. Encourage patient to wear glasses and hearing aides as appropriate 6. Maintain bed in lowest position 7. Lock wheels on bed/wheelchair 8. Provide adequate lighting, including night light 9. Assess need for additional bedding, food/fluids, pain med's prior to sleep/routinely 10. Provide gripper slippers or personal non-skid footwear 11. Teach patient and patient motor vehicle representative to maintain environment for safety and engage in all aspects of fall prevention program 12. Remind patient to call for help before getting out of bed 13. Initiate bed/chair/exit alarms supportive devices as appropriate, (chair wedge, no-skid floor mat, raised edge mattress, hip protectors) 14. Locate patient bed assignment for optimal visualization 15. Evaluate and identify Safe Patient Handling Equipment needs 16. Provide supervision when out of bed or chair 17. Utilize gait belt as needed to assist with ambulation 18. Place adaptive equipment (cane, walker) within reach 19. Request patient motor vehicle representative bring adaptive equipment/mobility aids from home or obtain and provide as needed 20. Consult pharmacy regarding effects of med's affecting mobility, cognition, and alternatives 21. Obtain physician order for PT if risk factors associated with mobility are present 22. Obtain physician order for OT as appropriate 23. Utilize diversional activities 24. Educate patient and patient motor vehicle representative how to maintain a safe environment during visitation times (notify nurse prior to leaving bedside) 25. Consider appropriateness of medical or non-certified medical technician 26. Set up voiding schedule as appropriate (every 2 hours) Outcome: Progressing Note: Evaluation of progress towards goal: fall precautions maintained Problem: Pain Goal: Patient goal is pain score less than 4, able to rest, and participant in treatment plan as appropriate Description: INTERVENTIONS: 1. Encourage patient or legal motor vehicle representative to report early pain and ask for pain medicine when needed 2. Assess pain using appropriate pain scale and include the scale used when documenting 3. Administer analgesics based on type and severity of pain and evaluate response within appropriate time frame 4. Implement non-pharmacological measures as appropriate and evaluate response 5. Consider cultural and social influences on pain and pain management 6. Notify LIP if interventions ineffective or patient reports new pain 7. Monitor vital signs including pulse ox, end-tidal CO2 based on pain intervention 8. Reassess pain per policy 9. Teach patient or legal motor vehicle representative interventions for comforting Outcome: Progressing Note: Evaluation of progress towards goal: Patient states that pain is well controlled with PRN analgesics, reports a pain score of 0/10 at this time. Will continue to monitor for s/s of pain. Problem: Safety Goal: Patient will be injury free during hospitalization Description: INTERVENTIONS: 1. Assess patient's risk for falls and implement fall prevention plan of care per policy 2. Provide and maintain a safe environment 3. Proper use of double Identifiers 4. Medication administration using the 5 rights 5. Hand hygiene 6. Specimens are labeled at the bedside 7. Instruct patient/ patient motor vehicle representative about use of safety devices 8. Include patient/ patient motor vehicle representative in decisions related to safety Outcome: Progressing Note: Evaluation of progress towards goal: Patient remains free from injury, hourly rounds maintained. Problem: Infection Goal: Absence of infection during hospitalization Description: Interventions: 1. Assess and monitor for signs and symptoms of infection 2. Monitor lab/diagnostic results 3. Monitor all insertion sites i.e., indwelling lines, tubes and drains 4. Monitor endotracheal (as able) and nasal secretions for changes in amount and color 5. Administer medications as ordered 6. Instruct and encourage patient and family to use good hand hygiene technique 7. Identify and instruct patient/patient motor vehicle representative in use of appropriate isolation precautions for identified infection/symptoms 8. Provide and discuss with patient/patient motor vehicle representative on educational MDRO sheet 9. Encourage and monitor nutritional status daily and consult hospital ward clerk if indicated 10. Implement neutropenic guidelines as needed 11. Review exposure to history of communicable disease and recent travel history on admission 12. Encourage annual influenza vaccine 13. Encourage pneumonia vaccine Outcome: Progressing Note: Evaluation of progress towards goal: Patient remains free from signs and symptoms of infection, patient is afebrile, WBC within normal limits. Problem: Knowledge Deficit Goal: Patient/patient motor vehicle representative demonstrates understanding of disease process, treatment plan, medications, and discharge instructions Description: INTERVENTIONS 1. Complete learning assessment and assess knowledge base 2. Provide teaching at level of understanding 3. Provide teaching via preferred learning method(s) Outcome: Progressing Note: Evaluation of progress towards goal: verbalized understanding Problem: Discharge Planning Goal: Discharge to post-acute care, other facility, or home with appropriate resources Description: Patient's goal is: INTERVENTIONS 1. Conduct assessment to determine patient/family and health care team treatment goals, and need for post-acute services based on payer coverage, community resources, and patient preferences, and barriers to discharge 2. Coordinate with Social work, Care Navigation, and Utilization Review to arrange appropriate level of services according to patient's needs based on patient preference and payer coverage in collaboration with the physician and health care team 3. Address psychosocial, clinical, and financial barriers to discharge as identified in assessment in conjunction with the patient/family and health care team 4. Consult appropriate ancillary services (i.e.. PT/OT/ST, etc) as needed 5. Communicate with and update the patient/family, physician, and health care team regarding progress on the discharge plan 6. Identify discharge learning needs (meds, wound care, etc). 7. Arrange for needed discharge transportation as appropriate Outcome: Progressing Note: Evaluation of progress towards goal: Discharge planning in progress, not yet appropriate for discharge. Will continue to evaluate barriers. Problem: Glucose Imbalance Goal: Clinical indication of glucose balance is achieved Description: Patient's goal is: INTERVENTIONS 1. Monitor blood glucose levels as ordered 2. Administer medications as ordered 3. Notify physician of ineffective treatment plan Outcome: Progressing Note: Evaluation of progress towards goal: continue treatment Goal: Patient's discharge needs are met Description: Patient's goal is: INTERVENTIONS 1. Assess patient for self-management skills 2. Encourage participation in diabetes management 3. Identify potential discharge barriers on admission and throughout hospital stay 4. Involve patient/S.O. in discharge planning process 5. Communicate referral to nurse educator as appropriate 6. Communicate referral to hospital ward clerk as appropriate 7. Collaborate with case management/clinical social worker for discharge needs Outcome: Progressing Note: Evaluation of progress towards goal: Discharge planning in progress, not yet appropriate for discharge. Will continue to evaluate barriers. Problem: Potential for Compromised Skin Integrity Goal: Skin integrity is maintained or improved Description: Patient's goal is: INTERVENTIONS 1. Perform initial skin assessment on admission and as needed 2. Turn patient every 2 hours and PRN 3. Relieve pressure to bony prominences 4. Avoid shearing 5. Keep skin clean and dry 6. Alternate a full bath with partial baths for elderly 7. Encourage use of lotion/moisturizer on skin 8. Monitor patient's hygiene practices 9. Float heels 10. Collaborate with interdisciplinary team and initiate plans and interventions as needed Outcome: Progressing Note: Evaluation of progress towards goal: No new skin breakdown noted, turned q 2 and PRN. Skin is clean, dry, and intact. Goal: Patient's nutritional intake is adequate Description: Patient's goal is: INTERVENTIONS 1. Assess and monitor food intake and supplements, patient food preferences, nausea, vomiting, labs, oral cavity (gums, teeth, tongue, mucosa), proper denture fit, and cultural beliefs 2. Monitor for signs of hypoglycemia and hyperglycemia 3. Collaborate with interdisciplinary team and initiate plan and interventions as ordered 4. Monitor patient's weight 5. Assist patient with meals/food selection 6. Assist patient with eating 7. Allow adequate time for meals 8. Provide pleasant environment during mealtime 9. Increase social contact during mealtimes 10. Plan activities to conserve energy 11. Encourage/perform oral hygiene as appropriate 12. Encourage patient to take dietary supplement as ordered 13. Collaborate with clinical hospital ward clerk 14. Include patient/ patient's motor vehicle representative in decisions related to nutrition Outcome: Progressing Note: Evaluation of progress towards goal: PO Problem: Urinary Incontinence Goal: Perineal skin integrity is maintained or improved Description: INTERVENTIONS 1. Assess genitourinary system, perineal skin, labs (urinalysis), and history of incontinence to include past management, aggravating, and alleviating factors 2. Keep skin clean and dry 3. Apply skin protectant 4. Develop skin care regimen 5. Provide privacy when changing patients incontinence device to maintain their dignity 6. Consider placing an indwelling catheter 7. Collaborate with interdisciplinary team and initiate plans and interventions as needed Outcome: Progressing Note: Evaluation of progress towards goal: external cath Problem: Cardiovascular - Adult Goal: Maintains optimal cardiac output and hemodynamic stability Description: Patient's goal is: INTERVENTIONS: 1. Monitor vital signs, rhythm, and trends 2. Monitor for bleeding, hypotension and signs of decreased cardiac output 3. Administer ordered vasoactive medications to optimize hemodynamic stability 4. Monitor arterial and/or venous puncture sites for bleeding and/or hematoma 5. Assess quality of pulses, skin color and temperature Outcome: Progressing Note: Evaluation of progress towards goal: continue support Problem: Moderate - High Risk Fall Score Description: Sepulveda Fall Score of =/> 25 or indicated by [facility] Assessment Goal: Patient should be free from fall Description: Interventions: 1. [place] to environment 2. Hourly rounds addressing the 4 P's (Pain, Positioning, Possessions, Potty) 3. Clear area of hazards (spills, clutter, electrical cords, unnecessary equipment) 4. Place equipment (bed & TV controls, call light, phone, urinal) within reach 5. Encourage patient to wear glasses and hearing aides as appropriate 6. Maintain bed in lowest position 7. Lock wheels on bed/wheelchair 8. Provide adequate lighting, including night light 9. Assess need for additional bedding, food/fluids, pain med's prior to sleep/routinely 10. Provide gripper slippers or personal non-skid footwear 11. Teach patient and patient motor vehicle representative to maintain environment for safety and engage in all aspects of fall prevention program 12. Remind patient to call for help before getting out of bed 13. Initiate bed/chair/exit alarms supportive devices as appropriate, (chair wedge, no-skid floor mat, raised edge mattress, hip protectors) 14. Locate patient bed assignment for optimal visualization 15. Evaluate and identify Safe Patient Handling Equipment needs 16. Provide supervision when out of bed or chair 17. Utilize gait belt as needed to assist with ambulation 18. Place adaptive equipment (cane, walker) within reach 19. Request patient motor vehicle representative bring adaptive equipment/mobility aids from home or obtain and provide as needed 20. Consult pharmacy regarding effects of med's affecting mobility, cognition, and alternatives 21. Obtain physician order for PT if risk factors associated with mobility are present 22. Obtain physician order for OT as appropriate 23. Utilize diversional activities 24. Educate patient and patient motor vehicle representative how to maintain a safe environment during visitation times (notify nurse prior to leaving bedside) 25. Consider appropriateness of medical or non-certified medical technician 26. Set up voiding schedule as appropriate (every 2 hours) Outcome: Progressing Note: Evaluation of progress towards goal: Patient remains free from falls and injury, fall risk ID band on, fall prevention education and precautions provided and in place. Patient verbalizes and demonstrates understanding, hourly rounds maintained. Problem: Inadequate Breathing Pattern Goal: Patient will maintain effective ventilation Description: Patient's goal is: INTERVENTIONS 1. Assess and monitor vital signs, respiratory status (to include respiratory rate, depth, effort, and breath sounds), oxygen saturation, oral mucosa, tongue, pain, and labs (ABGs). 2. Collaborate with interdisciplinary team and initiate plans and interventions as needed 3. Oxygen therapy as indicated 4. Position patient for maximum ventilatory efficiency 5. Instruct patient to turn, cough, and deep breathe; encourage incentive spirometer if indicated 6. Plan activities to conserve energy 7. Encourage ambulation/activity per patient's tolerance 8. Collaborate with patient/RT to administer medications/treatments 9. Monitor lab/diagnostic results Outcome: Progressing Note: Evaluation of progress towards goal: RT Problem: Pain Goal: Patient goal is pain score less than 4, able to rest, and participant in treatment plan as appropriate Description: INTERVENTIONS: 1. Encourage patient or legal motor vehicle representative to report early pain and ask for pain medicine when needed 2. Assess pain using appropriate pain scale and include the scale used when documenting 3. Administer analgesics based on type and severity of pain and evaluate response within appropriate time frame 4. Implement non-pharmacological measures as appropriate and evaluate response 5. Consider cultural and social influences on pain and pain management 6. Notify LIP if interventions ineffective or patient reports new pain 7. Monitor vital signs including pulse ox, end-tidal CO2 based on pain intervention 8. Reassess pain per policy 9. Teach patient or legal motor vehicle representative interventions for comforting Outcome: Progressing Note: Evaluation of progress towards goal: pt denies any pain Problem: Safety Goal: Patient will be injury free during hospitalization Description: INTERVENTIONS: 1. Assess patient's risk for falls and implement fall prevention plan of care per policy 2. Provide and maintain a safe environment 3. Proper use of double Identifiers 4. Medication administration using the 5 rights 5. Hand hygiene 6. Specimens are labeled at the bedside 7. Instruct patient/ patient motor vehicle representative about use of safety devices 8. Include patient/ patient motor vehicle representative in decisions related to safety Outcome: Progressing Note: Evaluation of progress towards goal: pt remains free of injury Problem: Infection Goal: Absence of infection during hospitalization Description: Interventions: 1. Assess and monitor for signs and symptoms of infection 2. Monitor lab/diagnostic results 3. Monitor all insertion sites i.e., indwelling lines, tubes and drains 4. Monitor endotracheal (as able) and nasal secretions for changes in amount and color 5. Administer medications as ordered 6. Instruct and encourage patient and family to use good hand hygiene technique 7. Identify and instruct patient/patient motor vehicle representative in use of appropriate isolation precautions for identified infection/symptoms 8. Provide and discuss with patient/patient motor vehicle representative on educational MDRO sheet 9. Encourage and monitor nutritional status daily and consult hospital ward clerk if indicated 10. Implement neutropenic guidelines as needed 11. Review exposure to history of communicable disease and recent travel history on admission 12. Encourage annual influenza vaccine 13. Encourage pneumonia vaccine Outcome: Progressing Note: Evaluation of progress towards goal: pt afebrile. No s/sx of infection Problem: Glucose Imbalance Goal: Clinical indication of glucose balance is achieved Description: Patient's goal is: INTERVENTIONS 1. Monitor blood glucose levels as ordered 2. Administer medications as ordered 3. Notify physician of ineffective treatment plan Outcome: Progressing Note: Evaluation of progress towards goal: glucose checked AC/HS and prn Problem: Potential for Compromised Skin Integrity Goal: Skin integrity is maintained or improved Description: Patient's goal is: INTERVENTIONS 1. Perform initial skin assessment on admission and as needed 2. Turn patient every 2 hours and PRN 3. Relieve pressure to bony prominences 4. Avoid shearing 5. Keep skin clean and dry 6. Alternate a full bath with partial baths for elderly 7. Encourage use of lotion/moisturizer on skin 8. Monitor patient's hygiene practices 9. Float heels 10. Collaborate with interdisciplinary team and initiate plans and interventions as needed Outcome: Progressing Note: Evaluation of progress towards goal: encouraged Q2 turn, pillow support Problem: Moderate - High Risk Fall Score Description: Sepulveda Fall Score of =/> 25 or indicated by [facility] Assessment Goal: Patient should be free from fall Description: Interventions: 1. [place] to environment 2. Hourly rounds addressing the 4 P's (Pain, Positioning, Possessions, Potty) 3. Clear area of hazards (spills, clutter, electrical cords, unnecessary equipment) 4. Place equipment (bed & TV controls, call light, phone, urinal) within reach 5. Encourage patient to wear glasses and hearing aides as appropriate 6. Maintain bed in lowest position 7. Lock wheels on bed/wheelchair 8. Provide adequate lighting, including night light 9. Assess need for additional bedding, food/fluids, pain med's prior to sleep/routinely 10. Provide gripper slippers or personal non-skid footwear 11. Teach patient and patient motor vehicle representative to maintain environment for safety and engage in all aspects of fall prevention program 12. Remind patient to call for help before getting out of bed 13. Initiate bed/chair/exit alarms supportive devices as appropriate, (chair wedge, no-skid floor mat, raised edge mattress, hip protectors) 14. Locate patient bed assignment for optimal visualization 15. Evaluate and identify Safe Patient Handling Equipment needs 16. Provide supervision when out of bed or chair 17. Utilize gait belt as needed to assist with ambulation 18. Place adaptive equipment (cane, walker) within reach 19. Request patient motor vehicle representative bring adaptive equipment/mobility aids from home or obtain and provide as needed 20. Consult pharmacy regarding effects of med's affecting mobility, cognition, and alternatives 21. Obtain physician order for PT if risk factors associated with mobility are present 22. Obtain physician order for OT as appropriate 23. Utilize diversional activities 24. Educate patient and patient motor vehicle representative how to maintain a safe environment during visitation times (notify nurse prior to leaving bedside) 25. Consider appropriateness of medical or non-certified medical technician 26. Set up voiding schedule as appropriate (every 2 hours) Outcome: Progressing Note: Evaluation of progress towards goal: fall precautions maintained DISCHARGE PLANNING NOTE Follow-up Discharge Planning Progress Note Per RN during discharge transition rounds, barriers to discharge are: Afib RVR, med adjustments per cardiology; heparin drip; discharge planning Discharge Plan: In progress. Patient has been declining SNF and current plan is in place for home with [id number]. Patient has been unable to sit at the bedside or ambulate. PT/OT recommending SNF. Discussed discharge plans again with patient, spouse, and son at the bedside. Spouse reports patient can walk and will have support from family at home. However, family members all work ceramic co[employer] machine and reiterated that patient has not been able to walk during this admission and would benefit for SNF stay for safety and rehab purposes. Patient and spouse unable to answer who will assist patient with needs when family members are at work. Provided SNF list and encouraged them to reconsider. If she does decide to return home, she will likely need a [place] lift, commode, and hospital bed. Referral initiated to [facility]. She will require BLS transport. Confirmed with Dr. Cox that patient does not need outpatient hemodialysis. Care Navigation will continue to follow for any discharge needs. 10/02/23 4:21 PM Physical Therapy Treatment Discharge Recommendations PT Recommendations: Care Home Facility SNF/ECF Comments: Pt is a very high fall risk. She is not able to complete any aspect of functional mobility without assist. She is unable to stand. Pt would benefit from skilled PT in order to increase her strength, endurnace and balance to return to [place]. Therapy Plan PT Treatment/Interventions: Functional transfer training, UE strengthening/ROM, LE strengthening/ROM, Endurance training, Patient/family training, Equipment eval/education, Balance, Bed mobility, Gait training, Functional activities PT Frequency: 6-7days/week PT Duration: LOS Patient Response to Treatment: Tolerated evaluation without adverse reaction Assessment Patient Assessment Therapy Problem List: Decreased balance, Decreased endurance, Decreased mobility, Decreased safe judgement during ADL, Decreased UE strength, Decreased LE strength Patient Response to Treatment: Tolerated evaluation without adverse reaction Mood/Affect: Flat Rehab Prognosis: Good, With continued PT status post acute discharge Visit RN Communication: Yes Medical Record Reviewed: Yes PT Type of Visit: Treatment Precautions Activity: early mobility-pass Equipment: gait belt, leandro Berger Telemetry/Public [employer] Commissioner: Yes Oxygen Used: 3L Other: high fall risk Pain Assessment Pain Assessment: No/denies pain Hearing / Speech / Vision Hearing: Hard of hearing/hearing concerns Speech: Within Functional Limits Cognition Orientation Level: Oriented X4 (Pt continues to have decreased insight into her deficits and the need for assistance.) Bed Mobility Supine to Sit: Mod assist (x 2) Sit to Supine: (Pt in chair with call light. RN aware.) Other: Assist with trunk and lower body. HOB elevated and use of bedrail. Pt able to initiate Rt LE to EOB but required assistance with Lt. Increased time and effort required. Transfers Sit to Stand: Max assist (x 2) Stand to Sit: Max assist (x 2) Bed to Chair: Total assist (CONNIE Gipson for bed to chair transfer) Other: Sit to stand completed x 2 with multiple attempts prior to achieving. Pt stood for approxiamtely 15 x seconds with first stand with strong posterior lean. Second stand pt stood for approximately 5 seconds. Multiple cues for LE placement for proper base of support. Phusical assist to place LE's/feet in proper position. Gait Other: RASHI Balance Sitting Balance: Static: Fair, Poor Sitting Balance: Dynamic: Poor Standing Balance: Static: Poor Standing Balance: Dynamic: Poor Other: Pt sat EOB for approximately 10 minutes total with min to max assist to maintain balance. Activity Tolerance Endurance: Tolerates >30 minutes activity with rest breaks Other: rest breaks in between transitions as needed. Fatigues quickly Plan Physical Therapy Care Plan Physical Therapy Care Plan (Active) Template: PT - Physical Therapy Problem: Activity Tolerance Dates: Start: 10/01/23 Disciplines: PT Goal: Tolerate 30 minutes of activity WITHOUT rest breaks Dates: Start: 10/01/23 Expected End: 10/15/23 Description: Goal Description: Disciplines: PT Outcomes Date/Time User Outcome 10/02/23 [id number] Domi Love, PT Progressing Goal Note filed on 10/02/23 1509 by Domi Love PT Evaluation of progress towards goal: Problem: Bed Mobility Dates: Start: 10/01/23 Disciplines: PT Goal: Patient will perform bed mobility with Contact Guard Dates: Start: 10/01/23 Expected End: 10/15/23 Description: Goal Description: Disciplines: PT Outcomes Date/Time User Outcome 10/02/23 1507 Domi Love, PT Not Progressing Goal Note filed on 10/02/23 1507 by Domi Love, PT Evaluation of progress towards goal: Problem: Gait Dates: Start: 10/01/23 Disciplines: PT Goal: Patient will perform gait with Minimum Assist Dates: Start: 10/01/23 Expected End: 10/15/23 Description: With___rw_,__50__feet Goal Description: Disciplines: PT Problem: Sitting Balance Dates: Start: 10/01/23 Disciplines: PT Goal: Improve balance to good Dates: Start: 10/01/23 Expected End: 10/15/23 Description: Static Dynamic Disciplines: PT Outcomes Date/Time User Outcome 10/02/23 1507 Domi Love, PT Progressing Goal Note filed on 10/02/23 1507 by Domi Love, PT Evaluation of progress towards goal: Problem: Standing Balance Dates: Start: 10/01/23 Disciplines: PT Goal: Improve balance to fair Dates: Start: 10/01/23 Expected End: 10/15/23 Description: Static Dynamic- with support of rw Disciplines: PT Problem: Strength Dates: Start: 10/01/23 Disciplines: PT Goal: Improve strength Dates: Start: 10/01/23 Expected End: 10/15/23 Description: Of extremity/ location:Complete bilat UE/LE ex's x 20 reps To facilitate: Disciplines: PT Outcomes Date/Time User Outcome 10/02/23 1507 Domi Love, PT Progressing Goal Note filed on 10/02/23 1507 by Domi Love, PT Evaluation of progress towards goal: Problem: Transfers Dates: Start: 10/01/23 Disciplines: PT Goal: Patient will perform transfers with Minimum Assist Dates: Start: 10/01/23 Expected End: 10/15/23 Description: Goal Description: Disciplines: PT Outcomes Date/Time User Outcome 10/02/23 1507 Domi Love PT Not Progressing Goal Note filed on 10/02/23 1507 by Domi Love, PT Evaluation of progress towards goal: Physical Therapy Care Plan (Resolved) There are no resolved problems. Principal Problem: Acute kidney injury ([facility]-HCC) Occupational Therapy Evaluation Discharge Recommendations OT Recommendations : Care Home Facility SNF/ECF Comments: Pt is a high fall risk and requires a significant amount of assistance for self care tasks. Pt would benefit from continued skilled therapy to increase strength, endurance and balance for safe, functional independence. 6 Clicks: Daily Activity Putting on and taking off regular lower body clothing?: A lot Bathing (including washing, rinsing, drying)?: A lot Toileting, which includes using toilet, bedpan or urinal?: A little Putting on and taking off regular upper body clothing?: A lot Taking care of personal grooming such as brushing teeth?: A little Eating meals?: None Scoring Daily Activity Raw Score: 16 CMS G Code Modifier: CK Therapy Plan Need for skilled Occupational Therapy to address deficits in ADL independence and functional mobility due to a status decline resulting from prolonged hospitalization. Pt presented to [place] ED via EMS with general weakness. Family reported they called EMS after pt became weak and she lowered herself to the floor. Pt transferred to . Pt was just discharged from the hospital on 09/05/23 where she had treatment for BRANDEE. CT brain and spine (-) for anything acute. Pt dx with hypoxic respiratory failure, metabolic encephalopathy, acute on chronic kidney disease and anemia. Scoring Daily Activity Raw Score: 16 CMS G Code Modifier: CK Past Medical History: Diagnosis Date Arrhythmia Hypertension Injury of back Disc L4 and L5 Obesity Systolic and diastolic CHF, acute (CMS-HCC) 09/03/2023 Visual impairment Past Surgical History: Procedure Laterality Date Cardiac catheterization 02/16/2021 Performed by Kelli Su MD at [facility] C[facility] CATH LABS Caval Tricuspid Isthmus RFA, Carto w/ICE N/A 03/21/2021 Performed by Lurdes Weinberg MD at [facility] AT [facility] (EP) Coronary angiogram and left ventricular gram/pressure N/A 02/16/2021 Performed by Kelli Su MD at [facility] CATH [facility] Coronary fractional flow reserve N/A 02/16/2021 Performed by Kelli Su MD at [facility] CATH [facility] Intravascular pressure measurement first vessel each additional vessel (fractional flow reserve) N/A 02/16/2021 Performed by Kelli Su MD at [facility] C[facility] CATH LABS MYRINGOTOMY W/ TUBES TONSILLECTOMY No chief complaint on file. OT Treatment/Interventions: ADL retraining, Functional transfer training, UE strengthening/ROM, LE strengthening/ROM, Endurance training, Patient/family training, Equipment eval/education, Balance, Bed mobility, Compensatory technique education, Functional activities OT Frequency: 6-7days/week OT Duration: LOS Assessment Patient Assessment Therapy Problem List: Decreased ADL status, Decreased balance, Decreased endurance, Decreased high-level ADLs, Decreased mobility, Decreased safe judgement during ADL, Decreased self-care trans, Decreased UE strength, Decreased LE strength Patient Response to Treatment: Tolerated evaluation without adverse reaction Mood/Affect: Flat (Decrease awareness of deficits) Rehab Prognosis: Good, With continued OT status post acute discharge Visit RN Communication: Yes Medical Record Reviewed: Yes OT Type of Visit: Evaluation Precautions Activity: early mobility-pass Equipment: gait belt, CONNIE Stedy Telemetry/Public [employer] Commissioner: Yes Oxygen Used: 3L Other: high fall risk Pain Assessment Pain Assessment: No/denies pain Home Living Type of Home: House Home Layout: Two level Stairs to Enter: 3 Hand Rails: Right Stairs in Home: FF to full bathroom Hand Rails in Home: None Bathroom Shower/Tub: Tub/shower unit (Pt sponge bathes in 1st floor 1/2 bath) Bathroom Toilet: Standard Home Equipment: Rolling walker, Cane Prior Function Lives With: Spouse (works) Receives Help From: Family (local son) Level of Mobility: Independent with ADLs and functional transfers or gait Homemaking Assistance: (shared with spouse) Other: Intermittent use of RW ADL / IADL Hand Dominance: Right Where Assessed: Edge of bed, Chair Eating Assistance: Setup Grooming Assistance: Min assist Bathing/Showering Assistance: Max assist Toilet/Commode Assistance: Total assist UE Dressing Assistance: Min assist LE Dressing Assistance: Max assist Footwear Assistance: Total assist Other: Pt limited by weakness, fatigue and decreased balance. Pt jhas poor tolerance and fatigues quickly. Pt educated on energy conservation/work simplification techniques and safety during ADLs. Home Management - IADL Other: Pt limited by weakness, fatigue and decreased balance. Pt jhas poor tolerance and fatigues quickly. Pt educated on energy conservation/work simplification techniques and safety during ADLs. Hearing / Speech / Vision Hearing: Hard of hearing/hearing concerns Speech: Within Functional Limits Cognition Overall Cognitive Status: Within Functional Limits Orientation Level: Oriented X4 Insight of Deficits: Decreased awareness of deficits Sensation Overall Sensation Status: Within Functional Limits (Pt denies numbness and tingling) Bed Mobility Supine to Sit: Mod assist (x 2) Sit to Supine: (Pt in chair with call light. RN aware.) Other: Assist with trunk and lower body. HOB elevated and use of ebdrail. Pt able to initiate Rt LE to EOB but required assistance with Lt. Increased time and effort required. Transfers Sit to Stand: Max assist (x 2) Stand to Sit: Max assist (x 2) Bed to Chair: Total assist (CONNIE Stedy for bed to chair transfer) Other: Sit to stand completed x 2 with multiple attempts prior to achieving. Pt stood for approxiamtely 15 x seconds with first stand with strong posterior lean. Second stand pt stood for approximately 5 seconds. Multiple cues for LE placement for proper base of support Gait Other: RASHI Balance Sitting Balance: Static: Fair, Poor Sitting Balance: Dynamic: Poor Standing Balance: Static: Poor Standing Balance: Dynamic: Poor Other: Pt sat EOB for approximately 10 minutes total with min to max assist to maintain balance. RUE Assessment: (grossly 3/5) LUE Assessment: (grossly 3/5) Activity Tolerance Endurance: Tolerates >30 minutes activity with rest breaks Other: rest breaks as needed. Fatigues quickly Plan Occupational Therapy Care Plan Occupational Therapy Care Plan (Active) Template: OT - Occupational Therapy Problem: Activity Tolerance Dates: Start: 10/02/23 Disciplines: OT Goal: Tolerate > 30 minutes of activity WITHOUT rest breaks Dates: Start: 10/02/23 Expected End: 10/30/23 Description: Goal Description: Disciplines: OT Problem: Bed Mobility Dates: Start: 10/02/23 Disciplines: OT Goal: Patient will perform bed mobility with Modified [place] Dates: Start: 10/02/23 Expected End: 10/30/23 Description: Goal Description: Disciplines: OT Problem: Functional Mobility Dates: Start: 10/02/23 Disciplines: OT Goal: Patient will perform functional mobility with Modified [place] Dates: Start: 10/02/23 Expected End: 10/30/23 Description: Goal Description: Disciplines: OT Problem: Other (Customize) Dates: Start: 10/02/23 Disciplines: OT Goal: Improve Dates: Start: 10/02/23 Expected End: 10/30/23 Description: Goal Description: Complete ADLs Jenna Disciplines: OT Problem: Sitting Balance Dates: Start: 10/02/23 Disciplines: OT Goal: Improve balance to good Dates: Start: 10/02/23 Expected End: 10/30/23 Description: Static Dynamic Disciplines: OT Problem: Standing Balance Dates: Start: 10/02/23 Disciplines: OT Goal: Improve balance to good Dates: Start: 10/02/23 Expected End: 10/30/23 Description: Static Dynamic Disciplines: OT Problem: Strength Dates: Start: 10/02/23 Disciplines: OT Goal: Improve strength Dates: Start: 10/02/23 Expected End: 10/30/23 Description: Of extremity/ location: Tolerate bilat UE/LE exercises to increase strength and endurance for self care tasks To facilitate: Disciplines: OT Problem: Transfers Dates: Start: 10/02/23 Disciplines: OT Goal: Patient will perform transfers with Modified [place] Dates: Start: 10/02/23 Expected End: 10/30/23 Description: Goal Description: Disciplines: OT Occupational Therapy Care Plan (Resolved) There are no resolved problems. Principal Problem: Acute kidney injury ([facility]-HCC) Problem: Pain Goal: Patient goal is pain score less than 4, able to rest, and participant in treatment plan as appropriate Description: INTERVENTIONS: 1. Encourage patient or legal motor vehicle representative to report early pain and ask for pain medicine when needed 2. Assess pain using appropriate pain scale and include the scale used when documenting 3. Administer analgesics based on type and severity of pain and evaluate response within appropriate time frame 4. Implement non-pharmacological measures as appropriate and evaluate response 5. Consider cultural and social influences on pain and pain management 6. Notify LIP if interventions ineffective or patient reports new pain 7. Monitor vital signs including pulse ox, end-tidal CO2 based on pain intervention 8. Reassess pain per policy 9. Teach patient or legal motor vehicle representative interventions for comforting Outcome: Progressing Note: Evaluation of progress towards goal: Patient's pain controlled with PRN pain medication. Problem: Safety Goal: Patient will be injury free during hospitalization Description: INTERVENTIONS: 1. Assess patient's risk for falls and implement fall prevention plan of care per policy 2. Provide and maintain a safe environment 3. Proper use of double Identifiers 4. Medication administration using the 5 rights 5. Hand hygiene 6. Specimens are labeled at the bedside 7. Instruct patient/ patient motor vehicle representative about use of safety devices 8. Include patient/ patient motor vehicle representative in decisions related to safety Outcome: Progressing Note: Evaluation of progress towards goal: Patient will remain free from injury during hospital stay. Problem: Infection Goal: Absence of infection during hospitalization Description: Interventions: 1. Assess and monitor for signs and symptoms of infection 2. Monitor lab/diagnostic results 3. Monitor all insertion sites i.e., indwelling lines, tubes and drains 4. Monitor endotracheal (as able) and nasal secretions for changes in amount and color 5. Administer medications as ordered 6. Instruct and encourage patient and family to use good hand hygiene technique 7. Identify and instruct patient/patient motor vehicle representative in use of appropriate isolation precautions for identified infection/symptoms 8. Provide and discuss with patient/patient motor vehicle representative on educational MDRO sheet 9. Encourage and monitor nutritional status daily and consult hospital ward clerk if indicated 10. Implement neutropenic guidelines as needed 11. Review exposure to history of communicable disease and recent travel history on admission 12. Encourage annual influenza vaccine 13. Encourage pneumonia vaccine Outcome: Progressing Note: Evaluation of progress towards goal: Patient shows no s/s of infection at this time. Problem: Knowledge Deficit Goal: Patient/patient motor vehicle representative demonstrates understanding of disease process, treatment plan, medications, and discharge instructions Description: INTERVENTIONS 1. Complete learning assessment and assess knowledge base 2. Provide teaching at level of understanding 3. Provide teaching via preferred learning method(s) Outcome: Progressing Note: Evaluation of progress towards goal: Patient verbalized understanding of plan of care this shift. Problem: Discharge Planning Goal: Discharge to post-acute care, other facility, or home with appropriate resources Description: Patient's goal is: INTERVENTIONS 1. Conduct assessment to determine patient/family and health care team treatment goals, and need for post-acute services based on payer coverage, community resources, and patient preferences, and barriers to discharge 2. Coordinate with Social work, Care Navigation, and Utilization Review to arrange appropriate level of services according to patient's needs based on patient preference and payer coverage in collaboration with the physician and health care team 3. Address psychosocial, clinical, and financial barriers to discharge as identified in assessment in conjunction with the patient/family and health care team 4. Consult appropriate ancillary services (i.e.. PT/OT/ST, etc) as needed 5. Communicate with and update the patient/family, physician, and health care team regarding progress on the discharge plan 6. Identify discharge learning needs (meds, wound care, etc). 7. Arrange for needed discharge transportation as appropriate Outcome: Progressing Note: Evaluation of progress towards goal: Patient verbalizes understanding of discharge plan. Problem: Glucose Imbalance Goal: Clinical indication of glucose balance is achieved Description: Patient's goal is: INTERVENTIONS 1. Monitor blood glucose levels as ordered 2. Administer medications as ordered 3. Notify physician of ineffective treatment plan Outcome: Progressing Note: Evaluation of progress towards goal: monitoring blood glucose Goal: Patient's discharge needs are met Description: Patient's goal is: INTERVENTIONS 1. Assess patient for self-management skills 2. Encourage participation in diabetes management 3. Identify potential discharge barriers on admission and throughout hospital stay 4. Involve patient/S.O. in discharge planning process 5. Communicate referral to nurse educator as appropriate 6. Communicate referral to hospital ward clerk as appropriate 7. Collaborate with case management/clinical social worker for discharge needs Outcome: Progressing Note: Evaluation of progress towards goal: Patient verbalizes understanding of discharge plan. Problem: Potential for Compromised Skin Integrity Goal: Skin integrity is maintained or improved Description: Patient's goal is: INTERVENTIONS 1. Perform initial skin assessment on admission and as needed 2. Turn patient every 2 hours and PRN 3. Relieve pressure to bony prominences 4. Avoid shearing 5. Keep skin clean and dry 6. Alternate a full bath with partial baths for elderly 7. Encourage use of lotion/moisturizer on skin 8. Monitor patient's hygiene practices 9. Float heels 10. Collaborate with interdisciplinary team and initiate plans and interventions as needed Outcome: Progressing Note: Evaluation of progress towards goal: Patient has no new skin breakdown noted. Goal: Patient's nutritional intake is adequate Description: Patient's goal is: INTERVENTIONS 1. Assess and monitor food intake and supplements, patient food preferences, nausea, vomiting, labs, oral cavity (gums, teeth, tongue, mucosa), proper denture fit, and cultural beliefs 2. Monitor for signs of hypoglycemia and hyperglycemia 3. Collaborate with interdisciplinary team and initiate plan and interventions as ordered 4. Monitor patient's weight 5. Assist patient with meals/food selection 6. Assist patient with eating 7. Allow adequate time for meals 8. Provide pleasant environment during mealtime 9. Increase social contact during mealtimes 10. Plan activities to conserve energy 11. Encourage/perform oral hygiene as appropriate 12. Encourage patient to take dietary supplement as ordered 13. Collaborate with clinical hospital ward clerk 14. Include patient/ patient's motor vehicle representative in decisions related to nutrition Outcome: Progressing Note: Evaluation of progress towards goal: Patient is tolerating ordered diet. Problem: Urinary Incontinence Goal: Perineal skin integrity is maintained or improved Description: INTERVENTIONS 1. Assess genitourinary system, perineal skin, labs (urinalysis), and history of incontinence to include past management, aggravating, and alleviating factors 2. Keep skin clean and dry 3. Apply skin protectant 4. Develop skin care regimen 5. Provide privacy when changing patients incontinence device to maintain their dignity 6. Consider placing an indwelling catheter 7. Collaborate with interdisciplinary team and initiate plans and interventions as needed Outcome: Progressing Note: Evaluation of progress towards goal: Patient has no new skin breakdown noted. Problem: Cardiovascular - Adult Goal: Maintains optimal cardiac output and hemodynamic stability Description: Patient's goal is: INTERVENTIONS: 1. Monitor vital signs, rhythm, and trends 2. Monitor for bleeding, hypotension and signs of decreased cardiac output 3. Administer ordered vasoactive medications to optimize hemodynamic stability 4. Monitor arterial and/or venous puncture sites for bleeding and/or hematoma 5. Assess quality of pulses, skin color and temperature Outcome: Progressing Note: Evaluation of progress towards goal: monitoring labs and vitals Problem: Moderate - High Risk Fall Score Description: [place] Fall Score of =/> 25 or indicated by [facility] Assessment Goal: Patient should be free from fall Description: Interventions: 1. [place] to environment 2. Hourly rounds addressing the 4 P's (Pain, Positioning, Possessions, Potty) 3. Clear area of hazards (spills, clutter, electrical cords, unnecessary equipment) 4. Place equipment (bed & TV controls, call light, phone, urinal) within reach 5. Encourage patient to wear glasses and hearing aides as appropriate 6. Maintain bed in lowest position 7. Lock wheels on bed/wheelchair 8. Provide adequate lighting, including night light 9. Assess need for additional bedding, food/fluids, pain med's prior to sleep/routinely 10. Provide gripper slippers or personal non-skid footwear 11. Teach patient and patient motor vehicle representative to maintain environment for safety and engage in all aspects of fall prevention program 12. Remind patient to call for help before getting out of bed 13. Initiate bed/chair/exit alarms supportive devices as appropriate, (chair wedge, no-skid floor mat, raised edge mattress, hip protectors) 14. Locate patient bed assignment for optimal visualization 15. Evaluate and identify Safe Patient Handling Equipment needs 16. Provide supervision when out of bed or chair 17. Utilize gait belt as needed to assist with ambulation 18. Place adaptive equipment (cane, walker) within reach 19. Request patient motor vehicle representative bring adaptive equipment/mobility aids from home or obtain and provide as needed 20. Consult pharmacy regarding effects of med's affecting mobility, cognition, and alternatives 21. Obtain physician order for PT if risk factors associated with mobility are present 22. Obtain physician order for OT as appropriate 23. Utilize diversional activities 24. Educate patient and patient motor vehicle representative how to maintain a safe environment during visitation times (notify nurse prior to leaving bedside) 25. Consider appropriateness of medical or non-certified medical technician 26. Set up voiding schedule as appropriate (every 2 hours) Outcome: Progressing Note: Evaluation of progress towards goal: Patient remains free from falls throughout shift Problem: Inadequate Breathing Pattern Goal: Patient will maintain effective ventilation Description: Patient's goal is: INTERVENTIONS 1. Assess and monitor vital signs, respiratory status (to include respiratory rate, depth, effort, and breath sounds), oxygen saturation, oral mucosa, tongue, pain, and labs (ABGs). 2. Collaborate with interdisciplinary team and initiate plans and interventions as needed 3. Oxygen therapy as indicated 4. Position patient for maximum ventilatory efficiency 5. Instruct patient to turn, cough, and deep breathe; encourage incentive spirometer if indicated 6. Plan activities to conserve energy 7. Encourage ambulation/activity per patient's tolerance 8. Collaborate with patient/RT to administer medications/treatments 9. Monitor lab/diagnostic results Outcome: Progressing Note: Evaluation of progress towards goal: denies SOB Problem: Pain Goal: Patient goal is pain score less than 4, able to rest, and participant in treatment plan as appropriate Description: INTERVENTIONS: 1. Encourage patient or legal motor vehicle representative to report early pain and ask for pain medicine when needed 2. Assess pain using appropriate pain scale and include the scale used when documenting 3. Administer analgesics based on type and severity of pain and evaluate response within appropriate time frame 4. Implement non-pharmacological measures as appropriate and evaluate response 5. Consider cultural and social influences on pain and pain management 6. Notify LIP if interventions ineffective or patient reports new pain 7. Monitor vital signs including pulse ox, end-tidal CO2 based on pain intervention 8. Reassess pain per policy 9. Teach patient or legal motor vehicle representative interventions for comforting Note: Evaluation of progress towards goal: Patient will verbalize tolerable pain level after pain interventions. Will continue to monitor and treat pain throughout shift. Problem: Safety Goal: Patient will be injury free during hospitalization Description: INTERVENTIONS: 1. Assess patient's risk for falls and implement fall prevention plan of care per policy 2. Provide and maintain a safe environment 3. Proper use of double Identifiers 4. Medication administration using the 5 rights 5. Hand hygiene 6. Specimens are labeled at the bedside 7. Instruct patient/ patient motor vehicle representative about use of safety devices 8. Include patient/ patient motor vehicle representative in decisions related to safety Note: Evaluation of progress towards goal: Patient safety has been maintained, will continue with safety interventions until DC. Problem: Infection Goal: Absence of infection during hospitalization Description: Interventions: 1. Assess and monitor for signs and symptoms of infection 2. Monitor lab/diagnostic results 3. Monitor all insertion sites i.e., indwelling lines, tubes and drains 4. Monitor endotracheal (as able) and nasal secretions for changes in amount and color 5. Administer medications as ordered 6. Instruct and encourage patient and family to use good hand hygiene technique 7. Identify and instruct patient/patient motor vehicle representative in use of appropriate isolation precautions for identified infection/symptoms 8. Provide and discuss with patient/patient motor vehicle representative on educational MDRO sheet 9. Encourage and monitor nutritional status daily and consult hospital ward clerk if indicated 10. Implement neutropenic guidelines as needed 11. Review exposure to history of communicable disease and recent travel history on admission 12. Encourage annual influenza vaccine 13. Encourage pneumonia vaccine Note: Evaluation of progress towards goal: Patient will show no new signs of infection, will continue with stable vitals, nurse to continue to assess and monitor until DC. Problem: Knowledge Deficit Goal: Patient/patient motor vehicle representative demonstrates understanding of disease process, treatment plan, medications, and discharge instructions Description: INTERVENTIONS 1. Complete learning assessment and assess knowledge base 2. Provide teaching at level of understanding 3. Provide teaching via preferred learning method(s) Note: Evaluation of progress towards goal: Nurse to continue education with patient and family as needed via their preferred learning method until DC. Problem: Discharge Planning Goal: Discharge to post-acute care, other facility, or home with appropriate resources Description: Patient's goal is: INTERVENTIONS 1. Conduct assessment to determine patient/family and health care team treatment goals, and need for post-acute services based on payer coverage, community resources, and patient preferences, and barriers to discharge 2. Coordinate with Social work, Care Navigation, and Utilization Review to arrange appropriate level of services according to patient's needs based on patient preference and payer coverage in collaboration with the physician and health care team 3. Address psychosocial, clinical, and financial barriers to discharge as identified in assessment in conjunction with the patient/family and health care team 4. Consult appropriate ancillary services (i.e.. PT/OT/ST, etc) as needed 5. Communicate with and update the patient/family, physician, and health care team regarding progress on the discharge plan 6. Identify discharge learning needs (meds, wound care, etc). 7. Arrange for needed discharge transportation as appropriate Note: Evaluation of progress towards goal: Nurse to continue to assist patient with DC planning as needed, nurse to assist to remove barriers to DC as able. Physical Therapy Evaluation Discharge Recommendations PT Recommendations: Care Home Facility SNF/ECF Comments: Pt is a very high fall risk. She is not able to complete any aspect of functional mobility without assist. She is unable to stand. Pt would benefit from skilled PT in order to increase her strength, endurnace and balance to return to PLOF. Therapy Plan Need for skilled Physical Therapy to address deficits in functional mobility due to a status decline resulting from hospitalization. Pt presented to [place] ED via EMS with general weakness. Family reported they called EMS after pt became weak and she lowered herself to the floor. Pt transferred to [facility]. Pt was just discharged from the hospital on 09/05/23 where she had treatment for BRANDEE. CT brain and spine (-) for anything acute. Pt dx with hypoxic respiratory failure, metabolic encephalopathy, acute on chronic kidney disease and anemia. Per RN today pt is stating she is leaving AMA. Complete PT eval and pt not able to complete any aspect of bed mobility without assist not able to stand on her own. She required 2 person assist to stand with rw and then only able to stay standing for few seconds before needing to sit. Long discussion with and family that home is not a safe plan at this time even with home health in place. Family agreeing that they would not be able to get her into the car or into the home. Pt continued to assist she would be able to. No chief complaint on file. 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 CARDIAC CATH LABS Caval Tricuspid Isthmus RFA, Carto w/ICE N/A 03/21/2021 Performed by Lurdes Weinberg MD at [facility] HRC (EP) Coronary angiogram and left ventricular gram/pressure N/A 02/16/2021 Performed by Kelli Su MD at [facility] CARDIAC CATH LABS Coronary fractional flow reserve N/A 02/16/2021 Performed by Kelli Su MD at [facility] CARDIAC CATH LABS Intravascular pressure measurement first vessel each additional vessel (fractional flow reserve) N/A 02/16/2021 Performed by Kelli Su MD at [facility] CARDIAC CATH LABS MYRINGOTOMY W/ TUBES TONSILLECTOMY 6 Clicks: Basic Mobility Turning from your back to your side while in a flat bed without using bed rails?: A lot Moving from lying on your back to sitting on side of flat bed without using bed rails?: A lot Moving to and from bed to a chair (including w/c)?: Total Standing up from a chair using your arms (e.g. w/c or bedside chair)?: A lot To walk in hospital room?: Total Climbing 3-5 steps with a railing?: Total Scoring 6 Clicks: Basic Mobility Raw Score: 9 [facility] G Code Modifier: CL PT Treatment/Interventions: Functional transfer training, UE strengthening/ROM, LE strengthening/ROM, Endurance training, Patient/family training, Equipment eval/education, Balance, Bed mobility, Gait training, Functional activities PT Frequency: 6-7days/week PT Duration: LOS Patient Response to Treatment: Tolerated evaluation without adverse reaction Assessment Patient Assessment Therapy Problem List: Decreased balance, Decreased endurance, Decreased mobility, Decreased safe judgement during ADL, Decreased UE strength, Decreased LE strength Patient Response to Treatment: Tolerated evaluation without adverse reaction Mood/Affect: (Pt unrealistic in her plan to go home today- this is not in alignment with what she is capable of doing in regards to functional mobility) Rehab Prognosis: Good, With continued PT status post acute discharge Visit RN Communication: Yes Medical Record Reviewed: Yes PT Type of Visit: Evaluation Precautions Activity: early mobility-pass Equipment: gait belt, rw Telemetry/Public Works Commissioner: Yes Oxygen Used: 3L Other: high fall risk Pain Assessment Pain Assessment: No/denies pain Home Living Type of Home: House Home Layout: Two level Stairs to Enter: 3 Hand Rails: Right Stairs in Home: FF to full bath Hand Rails in Home: None Bathroom Shower/Tub: Tub/shower unit (pt sponge bathes in 1st floor bathroom.) Bathroom Toilet: Standard Home Equipment: Rolling walker, Cane Prior Function Lives With: Spouse (he works) Receives Help From: Family (son local) Level of Mobility: Independent with ADLs and functional transfers or gait Homemaking Assistance: (shared with hsb.) Other: pt states she is independent with intermittent use of rw. However hsb then demonstrated how he pulls on her arms to help get her up. Did not allow him to do this with the pt and provided education that about safe technique to assist pt. Hearing / Speech / Vision Hearing: Hard of hearing/hearing concerns Speech: Within Functional Limits Current Vision: (when asked if she wore glasses she responded well I could ) Cognition Orientation Level: Oriented to person (Pt has poor insight into her deficits and her ability to be discharged home. This was even after pt was not able to complete sit to stand or get OOB with assist.) Sensation Overall Sensation Status: (Pt denies both n+t) Bed Mobility Supine to Sit: Mod assist (HOB up and pt used rail. She was not able to bring her legs to EOB, needed assist at trunk to come up.) Sit to Supine: Max assist (x2 assist with her trunk and bilat LE's) Other: Once sitting EOB pt required intermittent assist to maintain static sitting. She had LOB posteriorly several times. Transfers Sit to Stand: Mod assist (x2 . Pt attempted 5x to complete STS without physical assist but therapist and aid standing by for safety as pt repeatedly saying she can go home and she will be able to get around. Long conversation with pt that home at discharge is not realistic) Stand to Sit: Mod assist (to control descent) Bed to Chair: Total assist Other: Son and hsb in room to witness pt's ability to complete functional mobility. Gait Gait Distance: Pt stood for few seconds with 2 person assist but fatigued quickly and was safely assisted to seated position EOB. Other: RASHI Balance Sitting Balance: Static: Fair, Poor Sitting Balance: Dynamic: Poor Standing Balance: Static: Poor RLE Assessment: (Bilat LE's 3-/5 throughout) LLE Assessment: (Bilat LE's 3-/5 throughout) Activity Tolerance Endurance: Tolerates 30 minutes activity with rest breaks Plan Physical Therapy Care Plan Physical Therapy Care Plan (Active) Template: PT - Physical Therapy Problem: Activity Tolerance Dates: Start: 10/01/23 Disciplines: PT Goal: Tolerate 30 minutes of activity WITHOUT rest breaks Dates: Start: 10/01/23 Expected End: 10/15/23 Description: Goal Description: Disciplines: PT Problem: Bed Mobility Dates: Start: 10/01/23 Disciplines: PT Goal: Patient will perform bed mobility with Contact Guard Dates: Start: 10/01/23 Expected End: 10/15/23 Description: Goal Description: Disciplines: PT Problem: Gait Dates: Start: 10/01/23 Disciplines: PT Goal: Patient will perform gait with Minimum Assist Dates: Start: 10/01/23 Expected End: 10/15/23 Description: With___rw_,__50__feet Goal Description: Disciplines: PT Problem: Sitting Balance Dates: Start: 10/01/23 Disciplines: PT Goal: Improve balance to good Dates: Start: 10/01/23 Expected End: 10/15/23 Description: Static Dynamic Disciplines: PT Problem: Standing Balance Dates: Start: 10/01/23 Disciplines: PT Goal: Improve balance to fair Dates: Start: 10/01/23 Expected End: 10/15/23 Description: Static Dynamic- with support of rw Disciplines: PT Problem: Strength Dates: Start: 10/01/23 Disciplines: PT Goal: Improve strength Dates: Start: 10/01/23 Expected End: 10/15/23 Description: Of extremity/ location:Complete bilat UE/LE ex's x 20 reps To facilitate: Disciplines: PT Problem: Transfers Dates: Start: 10/01/23 Disciplines: PT Goal: Patient will perform transfers with Minimum Assist Dates: Start: 10/01/23 Expected End: 10/15/23 Description: Goal Description: Disciplines: PT Physical Therapy Care Plan (Resolved) There are no resolved problems. Principal Problem: Acute kidney injury ([facility]) DISCHARGE PLANNING NOTE Referral to [facility] ([place] P# [phone] ; F# [phone]) , [address] (P# ; F# ); [place] (P# [phone] ; F# [phone]) , [facility] ([place]- P# ; F# ) ([place], [place] P# ; F#) DISCHARGE PLANNING NOTE Per RN during discharge transition rounds, barriers to discharge are: PT/OT eval. IV fluids/diuretics, 3L O2, Dasilva Discharge Plan: Home with home health care and support from family. List provided to patient at bedside. Server Administrator will continue to follow for any discharge needs. - Ashley Park RN 10/01/23 1:49 PM UPDATE: Spoke with patient at bedside, per her request- tasked [facility] to send referrals to [facility], [address] & [facility]. - Ashley Park RN 10/01/23 2:15 PM Problem: Pain Goal: Patient goal is pain score less than 4, able to rest, and participant in treatment plan as appropriate Description: INTERVENTIONS: 1. Encourage patient or legal motor vehicle representative to report early pain and ask for pain medicine when needed 2. Assess pain using appropriate pain scale and include the scale used when documenting 3. Administer analgesics based on type and severity of pain and evaluate response within appropriate time frame 4. Implement non-pharmacological measures as appropriate and evaluate response 5. Consider cultural and social influences on pain and pain management 6. Notify LIP if interventions ineffective or patient reports new pain 7. Monitor vital signs including pulse ox, end-tidal CO2 based on pain intervention 8. Reassess pain per policy 9. Teach patient or legal motor vehicle representative interventions for comforting Outcome: Progressing Note: Evaluation of progress towards goal: Patient denies pain at this time, will continue to monitor and reassess pain with hourly rounding Problem: Pain Goal: Patient goal is pain score less than 4, able to rest, and participant in treatment plan as appropriate Description: INTERVENTIONS: 1. Encourage patient or legal motor vehicle representative to report early pain and ask for pain medicine when needed 2. Assess pain using appropriate pain scale and include the scale used when documenting 3. Administer analgesics based on type and severity of pain and evaluate response within appropriate time frame 4. Implement non-pharmacological measures as appropriate and evaluate response 5. Consider cultural and social influences on pain and pain management 6. Notify LIP if interventions ineffective or patient reports new pain 7. Monitor vital signs including pulse ox, end-tidal CO2 based on pain intervention 8. Reassess pain per policy 9. Teach patient or legal motor vehicle representative interventions for comforting Outcome: Progressing Note: Evaluation of progress towards goal: Patient has PRN medications available. Will continue to monitor that patient pain is being managed appropriately. Problem: Safety Goal: Patient will be injury free during hospitalization Description: INTERVENTIONS: 1. Assess patient's risk for falls and implement fall prevention plan of care per policy 2. Provide and maintain a safe environment 3. Proper use of double Identifiers 4. Medication administration using the 5 rights 5. Hand hygiene 6. Specimens are labeled at the bedside 7. Instruct patient/ patient motor vehicle representative about use of safety devices 8. Include patient/ patient motor vehicle representative in decisions related to safety Outcome: Progressing Note: Evaluation of progress towards goal: Patient will remain injury free during hospitalization. Problem: Infection Goal: Absence of infection during hospitalization Description: Interventions: 1. Assess and monitor for signs and symptoms of infection 2. Monitor lab/diagnostic results 3. Monitor all insertion sites i.e., indwelling lines, tubes and drains 4. Monitor endotracheal (as able) and nasal secretions for changes in amount and color 5. Administer medications as ordered 6. Instruct and encourage patient and family to use good hand hygiene technique 7. Identify and instruct patient/patient motor vehicle representative in use of appropriate isolation precautions for identified infection/symptoms 8. Provide and discuss with patient/patient motor vehicle representative on educational MDRO sheet 9. Encourage and monitor nutritional status daily and consult hospital ward clerk if indicated 10. Implement neutropenic guidelines as needed 11. Review exposure to history of communicable disease and recent travel history on admission 12. Encourage annual influenza vaccine 13. Encourage pneumonia vaccine Outcome: Progressing Note: Evaluation of progress towards goal: Patient will remain infection free during hospitalization. Standard precautions in place. Problem: Knowledge Deficit Goal: Patient/patient motor vehicle representative demonstrates understanding of disease process, treatment plan, medications, and discharge instructions Description: INTERVENTIONS 1. Complete learning assessment and assess knowledge base 2. Provide teaching at level of understanding 3. Provide teaching via preferred learning method(s) Outcome: Progressing Note: Evaluation of progress towards goal: Patient will be able to explain disease process in detail and be updated on condition daily. Problem: Discharge Planning Goal: Discharge to post-acute care, other facility, or home with appropriate resources Description: Patient's goal is: INTERVENTIONS 1. Conduct assessment to determine patient/family and health care team treatment goals, and need for post-acute services based on payer coverage, community resources, and patient preferences, and barriers to discharge 2. Coordinate with Social work, Care Navigation, and Utilization Review to arrange appropriate level of services according to patient's needs based on patient preference and payer coverage in collaboration with the physician and health care team 3. Address psychosocial, clinical, and financial barriers to discharge as identified in assessment in conjunction with the patient/family and health care team 4. Consult appropriate ancillary services (i.e.. PT/OT/ST, etc) as needed 5. Communicate with and update the patient/family, physician, and health care team regarding progress on the discharge plan 6. Identify discharge learning needs (meds, wound care, etc). 7. Arrange for needed discharge transportation as appropriate Outcome: Progressing Note: Evaluation of progress towards goal: Discharge plans updated and discussed daily. Problem: Cardiovascular - Adult Goal: Maintains optimal cardiac output and hemodynamic stability Description: Patient's goal is: INTERVENTIONS: 1. Monitor vital signs, rhythm, and trends 2. Monitor for bleeding, hypotension and signs of decreased cardiac output 3. Administer ordered vasoactive medications to optimize hemodynamic stability 4. Monitor arterial and/or venous puncture sites for bleeding and/or hematoma 5. Assess quality of pulses, skin color and temperature Outcome: Progressing Note: Evaluation of progress towards goal: Patient's HR and BP to be monitored as ordered. Cardiac medications administered as ordered. Spoke to Dr. Valerio [facility]. Updated on events. [facility] will assume care for patient tomorrow morning at 07:00 AM. nAel Lara PA-C [facility] 09/29/2023 Anel Lara PA-C 09/29/23 1724 Problem: Pain Goal: Patient goal is pain score less than 4, able to rest, and participant in treatment plan as appropriate Description: INTERVENTIONS: 1. Encourage patient or legal motor vehicle representative to report early pain and ask for pain medicine when needed 2. Assess pain using appropriate pain scale and include the scale used when documenting 3. Administer analgesics based on type and severity of pain and evaluate response within appropriate time frame 4. Implement non-pharmacological measures as appropriate and evaluate response 5. Consider cultural and social influences on pain and pain management 6. Notify LIP if interventions ineffective or patient reports new pain 7. Monitor vital signs including pulse ox, end-tidal CO2 based on pain intervention 8. Reassess pain per policy 9. Teach patient or legal motor vehicle representative interventions for comforting Outcome: Progressing Note: Evaluation of progress towards goal: PRN pain medications used to control patient's pain during this shift. Will continue to assess for signs and symptoms of pain and treat patient accordingly. Problem: Safety Goal: Patient will be injury free during hospitalization Description: INTERVENTIONS: 1. Assess patient's risk for falls and implement fall prevention plan of care per policy 2. Provide and maintain a safe environment 3. Proper use of double Identifiers 4. Medication administration using the 5 rights 5. Hand hygiene 6. Specimens are labeled at the bedside 7. Instruct patient/ patient motor vehicle representative about use of safety devices 8. Include patient/ patient motor vehicle representative in decisions related to safety Outcome: Progressing Note: Evaluation of progress towards goal: Pt has remained free of falls and safety measures continue to be met. Will continue to monitor Problem: Knowledge Deficit Goal: Patient/patient motor vehicle representative demonstrates understanding of disease process, treatment plan, medications, and discharge instructions Description: INTERVENTIONS 1. Complete learning assessment and assess knowledge base 2. Provide teaching at level of understanding 3. Provide teaching via preferred learning method(s) Outcome: Progressing Note: Evaluation of progress towards goal: Assessment of best learning methods and knowledge base completed.Teaching provided at patient's and patient's family's level of understanding, and via patient's and patient's family's preferred learning methods when applicable. Problem: Discharge Planning Goal: Discharge to post-acute care, other facility, or home with appropriate resources Description: Patient's goal is: INTERVENTIONS 1. Conduct assessment to determine patient/family and health care team treatment goals, and need for post-acute services based on payer coverage, community resources, and patient preferences, and barriers to discharge 2. Coordinate with Social work, Care Navigation, and Utilization Review to arrange appropriate level of services according to patient's needs based on patient preference and payer coverage in collaboration with the physician and health care team 3. Address psychosocial, clinical, and financial barriers to discharge as identified in assessment in conjunction with the patient/family and health care team 4. Consult appropriate ancillary services (i.e.. PT/OT/ST, etc) as needed 5. Communicate with and update the patient/family, physician, and health care team regarding progress on the discharge plan 6. Identify discharge learning needs (meds, wound care, etc). 7. Arrange for needed discharge transportation as appropriate Outcome: Progressing Note: Evaluation of progress towards goal: Patient does not qualify for discharge at this time. Discharge planning is readdressed every shift by providers and primary nurse. Physical Therapy CANCEL - Deferred As of 6:52 AM, pt has a failed safety screen. PT will continue to check on pt as able pending updated activity. If status is changed to pass and therapy eval is requested, please feel free to contact global technical writer. Problem: Pain Goal: Patient goal is pain score less than 4, able to rest, and participant in treatment plan as appropriate Description: INTERVENTIONS: 1. Encourage patient or legal motor vehicle representative to report early pain and ask for pain medicine when needed 2. Assess pain using appropriate pain scale and include the scale used when documenting 3. Administer analgesics based on type and severity of pain and evaluate response within appropriate time frame 4. Implement non-pharmacological measures as appropriate and evaluate response 5. Consider cultural and social influences on pain and pain management 6. Notify LIP if interventions ineffective or patient reports new pain 7. Monitor vital signs including pulse ox, end-tidal CO2 based on pain intervention 8. Reassess pain per policy 9. Teach patient or legal motor vehicle representative interventions for comforting Outcome: Progressing Note: Evaluation of progress towards goal: Pt is able to rest and participate in treatment plan as appropriate. Pt reports no pain at this time. Problem: Safety Goal: Patient will be injury free during hospitalization Description: INTERVENTIONS: 1. Assess patient's risk for falls and implement fall prevention plan of care per policy 2. Provide and maintain a safe environment 3. Proper use of double Identifiers 4. Medication administration using the 5 rights 5. Hand hygiene 6. Specimens are labeled at the bedside 7. Instruct patient/ patient motor vehicle representative about use of safety devices 8. Include patient/ patient motor vehicle representative in decisions related to safety Outcome: Progressing Note: Evaluation of progress towards goal: Pt has been free from injury throughout her stay on [facility] ICU. Safety measures have been implemented and maintained. Problem: Cardiovascular - Adult Goal: Maintains optimal cardiac output and hemodynamic stability Description: Patient's goal is: INTERVENTIONS: 1. Monitor vital signs, rhythm, and trends 2. Monitor for bleeding, hypotension and signs of decreased cardiac output 3. Administer ordered vasoactive medications to optimize hemodynamic stability 4. Monitor arterial and/or venous puncture sites for bleeding and/or hematoma 5. Assess quality of pulses, skin color and temperature Outcome: Progressing Note: Evaluation of progress towards goal: Pt has maintained optimal cardiac output. Problem: Moderate - High Risk Fall Score Description: Sepulveda Fall Score of =/> 25 or indicated by [facility] Assessment Goal: Patient should be free from fall Description: Interventions: 1. [place] to environment 2. Hourly rounds addressing the 4 P's (Pain, Positioning, Possessions, Potty) 3. Clear area of hazards (spills, clutter, electrical cords, unnecessary equipment) 4. Place equipment (bed & TV controls, call light, phone, urinal) within reach 5. Encourage patient to wear glasses and hearing aides as appropriate 6. Maintain bed in lowest position 7. Lock wheels on bed/wheelchair 8. Provide adequate lighting, including night light 9. Assess need for additional bedding, food/fluids, pain med's prior to sleep/routinely 10. Provide gripper slippers or personal non-skid footwear 11. Teach patient and patient motor vehicle representative to maintain environment for safety and engage in all aspects of fall prevention program 12. Remind patient to call for help before getting out of bed 13. Initiate bed/chair/exit alarms supportive devices as appropriate, (chair wedge, no-skid floor mat, raised edge mattress, hip protectors) 14. Locate patient bed assignment for optimal visualization 15. Evaluate and identify Safe Patient Handling Equipment needs 16. Provide supervision when out of bed or chair 17. Utilize gait belt as needed to assist with ambulation 18. Place adaptive equipment (cane, walker) within reach 19. Request patient motor vehicle representative bring adaptive equipment/mobility aids from home or obtain and provide as needed 20. Consult pharmacy regarding effects of med's affecting mobility, cognition, and alternatives 21. Obtain physician order for PT if risk factors associated with mobility are present 22. Obtain physician order for OT as appropriate 23. Utilize diversional activities 24. Educate patient and patient motor vehicle representative how to maintain a safe environment during visitation times (notify nurse prior to leaving bedside) 25. Consider appropriateness of medical or non-certified medical technician 26. Set up voiding schedule as appropriate (every 2 hours) Outcome: Progressing Note: Evaluation of progress towards goal: Pt has been free from falls throughout her stay on [facility] ICU. Fall precaution measures have been implemented and maintained. [facility] Transfer Accept Note I have received a request for transfer of primary service for this patient from the ICU team care of Dr. Harris. Clinical handoff report was given. [facility] will assume care as primary team of this patient upon transfer out of the ICU. Edilson Scott MD [facility] Problem: Pain Goal: Patient goal is pain score less than 4, able to rest, and participant in treatment plan as appropriate Description: INTERVENTIONS: 1. Encourage patient or legal motor vehicle representative to report early pain and ask for pain medicine when needed 2. Assess pain using appropriate pain scale and include the scale used when documenting 3. Administer analgesics based on type and severity of pain and evaluate response within appropriate time frame 4. Implement non-pharmacological measures as appropriate and evaluate response 5. Consider cultural and social influences on pain and pain management 6. Notify LIP if interventions ineffective or patient reports new pain 7. Monitor vital signs including pulse ox, end-tidal CO2 based on pain intervention 8. Reassess pain per policy 9. Teach patient or legal motor vehicle representative interventions for comforting Outcome: Progressing Note: Evaluation of progress towards goal: PRN pain medications used to control patient's pain during this shift. Will continue to assess for signs and symptoms of pain and treat patient accordingly. Problem: Safety Goal: Patient will be injury free during hospitalization Description: INTERVENTIONS: 1. Assess patient's risk for falls and implement fall prevention plan of care per policy 2. Provide and maintain a safe environment 3. Proper use of double Identifiers 4. Medication administration using the 5 rights 5. Hand hygiene 6. Specimens are labeled at the bedside 7. Instruct patient/ patient motor vehicle representative about use of safety devices 8. Include patient/ patient motor vehicle representative in decisions related to safety Outcome: Progressing Note: Evaluation of progress towards goal: Pt has remained free of falls and safety measures continue to be met. Will continue to monitor Problem: Knowledge Deficit Goal: Patient/patient motor vehicle representative demonstrates understanding of disease process, treatment plan, medications, and discharge instructions Description: INTERVENTIONS 1. Complete learning assessment and assess knowledge base 2. Provide teaching at level of understanding 3. Provide teaching via preferred learning method(s) Outcome: Progressing Note: Evaluation of progress towards goal: Assessment of best learning methods and knowledge base completed.Teaching provided at patient's and patient's family's level of understanding, and via patient's and patient's family's preferred learning methods when applicable. Problem: Discharge Planning Goal: Discharge to post-acute care, other facility, or home with appropriate resources Description: Patient's goal is: INTERVENTIONS 1. Conduct assessment to determine patient/family and health care team treatment goals, and need for post-acute services based on payer coverage, community resources, and patient preferences, and barriers to discharge 2. Coordinate with Social work, Care Navigation, and Utilization Review to arrange appropriate level of services according to patient's needs based on patient preference and payer coverage in collaboration with the physician and health care team 3. Address psychosocial, clinical, and financial barriers to discharge as identified in assessment in conjunction with the patient/family and health care team 4. Consult appropriate ancillary services (i.e.. PT/OT/ST, etc) as needed 5. Communicate with and update the patient/family, physician, and health care team regarding progress on the discharge plan 6. Identify discharge learning needs (meds, wound care, etc). 7. Arrange for needed discharge transportation as appropriate Outcome: Progressing Note: Evaluation of progress towards goal: Patient does not qualify for discharge at this time. Discharge planning is readdressed every shift by providers and primary nurse. Problem: Moderate - High Risk Fall Score Description: Sepulveda Fall Score of =/> 25 or indicated by [facility] Assessment Goal: Patient should be free from fall Description: Interventions: 1. [place] to environment 2. Hourly rounds addressing the 4 P's (Pain, Positioning, Possessions, Potty) 3. Clear area of hazards (spills, clutter, electrical cords, unnecessary equipment) 4. Place equipment (bed & TV controls, call light, phone, urinal) within reach 5. Encourage patient to wear glasses and hearing aides as appropriate 6. Maintain bed in lowest position 7. Lock wheels on bed/wheelchair 8. Provide adequate lighting, including night light 9. Assess need for additional bedding, food/fluids, pain med's prior to sleep/routinely 10. Provide gripper slippers or personal non-skid footwear 11. Teach patient and patient motor vehicle representative to maintain environment for safety and engage in all aspects of fall prevention program 12. Remind patient to call for help before getting out of bed 13. Initiate bed/chair/exit alarms supportive devices as appropriate, (chair wedge, no-skid floor mat, raised edge mattress, hip protectors) 14. Locate patient bed assignment for optimal visualization 15. Evaluate and identify Safe Patient Handling Equipment needs 16. Provide supervision when out of bed or chair 17. Utilize gait belt as needed to assist with ambulation 18. Place adaptive equipment (cane, walker) within reach 19. Request patient motor vehicle representative bring adaptive equipment/mobility aids from home or obtain and provide as needed 20. Consult pharmacy regarding effects of med's affecting mobility, cognition, and alternatives 21. Obtain physician order for PT if risk factors associated with mobility are present 22. Obtain physician order for OT as appropriate 23. Utilize diversional activities 24. Educate patient and patient motor vehicle representative how to maintain a safe environment during visitation times (notify nurse prior to leaving bedside) 25. Consider appropriateness of medical or non-certified medical technician 26. Set up voiding schedule as appropriate (every 2 hours) Outcome: Progressing Note: Evaluation of progress towards goal: No falls or injuries during this shift. Bed is locked, in low position, and bedside rails are up x3. Will continue to monitor patient frequently and maintain a safe environment. Physical Therapy CANCEL - Deferred As of 7:31 AM, pt has a failed safety screen. PT will continue to check on pt as able pending updated activity. If status is changed to pass and therapy eval is requested, please feel free to contact global technical writer. Problem: Pain Goal: Patient goal is pain score less than 4, able to rest, and participant in treatment plan as appropriate Description: INTERVENTIONS: 1. Encourage patient or legal motor vehicle representative to report early pain and ask for pain medicine when needed 2. Assess pain using appropriate pain scale and include the scale used when documenting 3. Administer analgesics based on type and severity of pain and evaluate response within appropriate time frame 4. Implement non-pharmacological measures as appropriate and evaluate response 5. Consider cultural and social influences on pain and pain management 6. Notify LIP if interventions ineffective or patient reports new pain 7. Monitor vital signs including pulse ox, end-tidal CO2 based on pain intervention 8. Reassess pain per policy 9. Teach patient or legal motor vehicle representative interventions for comforting Outcome: Progressing Note: Evaluation of progress towards goal: Pt is able to rest and participate in treatment plan as appropriate. Pt reports pain using the Adult Numeric Pain Scale. Pt reports no pain at this time. Problem: Safety Goal: Patient will be injury free during hospitalization Description: INTERVENTIONS: 1. Assess patient's risk for falls and implement fall prevention plan of care per policy 2. Provide and maintain a safe environment 3. Proper use of double Identifiers 4. Medication administration using the 5 rights 5. Hand hygiene 6. Specimens are labeled at the bedside 7. Instruct patient/ patient motor vehicle representative about use of safety devices 8. Include patient/ patient motor vehicle representative in decisions related to safety Outcome: Progressing Note: Evaluation of progress towards goal: Pt has been free from injury throughout her stay on [facility] ICU. Safety measures have been implemented and maintained. Problem: Infection Goal: Absence of infection during hospitalization Description: Interventions: 1. Assess and monitor for signs and symptoms of infection 2. Monitor lab/diagnostic results 3. Monitor all insertion sites i.e., indwelling lines, tubes and drains 4. Monitor endotracheal (as able) and nasal secretions for changes in amount and color 5. Administer medications as ordered 6. Instruct and encourage patient and family to use good hand hygiene technique 7. Identify and instruct patient/patient motor vehicle representative in use of appropriate isolation precautions for identified infection/symptoms 8. Provide and discuss with patient/patient motor vehicle representative on educational MDRO sheet 9. Encourage and monitor nutritional status daily and consult hospital ward clerk if indicated 10. Implement neutropenic guidelines as needed 11. Review exposure to history of communicable disease and recent travel history on admission 12. Encourage annual influenza vaccine 13. Encourage pneumonia vaccine Outcome: Progressing Note: Evaluation of progress towards goal: Standard precautions have been implemented and maintained. Problem: Moderate - High Risk Fall Score Description: Sepulveda Fall Score of =/> 25 or indicated by [facility] Assessment Goal: Patient should be free from fall Description: Interventions: 1. [place] to environment 2. Hourly rounds addressing the 4 P's (Pain, Positioning, Possessions, Potty) 3. Clear area of hazards (spills, clutter, electrical cords, unnecessary equipment) 4. Place equipment (bed & TV controls, call light, phone, urinal) within reach 5. Encourage patient to wear glasses and hearing aides as appropriate 6. Maintain bed in lowest position 7. Lock wheels on bed/wheelchair 8. Provide adequate lighting, including night light 9. Assess need for additional bedding, food/fluids, pain med's prior to sleep/routinely 10. Provide gripper slippers or personal non-skid footwear 11. Teach patient and patient motor vehicle representative to maintain environment for safety and engage in all aspects of fall prevention program 12. Remind patient to call for help before getting out of bed 13. Initiate bed/chair/exit alarms supportive devices as appropriate, (chair wedge, no-skid floor mat, raised edge mattress, hip protectors) 14. Locate patient bed assignment for optimal visualization 15. Evaluate and identify Safe Patient Handling Equipment needs 16. Provide supervision when out of bed or chair 17. Utilize gait belt as needed to assist with ambulation 18. Place adaptive equipment (cane, walker) within reach 19. Request patient motor vehicle representative bring adaptive equipment/mobility aids from home or obtain and provide as needed 20. Consult pharmacy regarding effects of med's affecting mobility, cognition, and alternatives 21. Obtain physician order for PT if risk factors associated with mobility are present 22. Obtain physician order for OT as appropriate 23. Utilize diversional activities 24. Educate patient and patient motor vehicle representative how to maintain a safe environment during visitation times (notify nurse prior to leaving bedside) 25. Consider appropriateness of medical or non-certified medical technician 26. Set up voiding schedule as appropriate (every 2 hours) Outcome: Progressing Note: Evaluation of progress towards goal: Pt has been free from falls throughout her stay on [facility] ICU. Fall precaution measures have been implemented and maintained. DISCHARGE PLANNING NOTE Chart reviewed and pt came in for respiratory failure, CHF, A-Fib, diabetes, weakness with stage 4 chronic renal failure. Pt is a readmission and from home with spouse. SW attempted to call pt spouse Liborio and left re: POC. SW to follow. - JAIRO PARKER 09/27/23 3:47 PM ICU transfer to floor has been canceled per Dr. Hodgson. We will take her off the [facility] hospitalist list for now, please call [facility] when patient is ready to transfer out of ICU. Physical Therapy CANCEL - Deferred (Hold PT eval per Dianne RN and early mobility screen fail, pt is on vasopressors. PT will continue to follow.) Occupational Therapy (P) CANCEL - Deferred (Per RN Dianne pt on pressors, hold OT evaluation.) Problem: Pain Goal: Patient goal is pain score less than 4, able to rest, and participant in treatment plan as appropriate Description: INTERVENTIONS: 1. Encourage patient or legal motor vehicle representative to report early pain and ask for pain medicine when needed 2. Assess pain using appropriate pain scale and include the scale used when documenting 3. Administer analgesics based on type and severity of pain and evaluate response within appropriate time frame 4. Implement non-pharmacological measures as appropriate and evaluate response 5. Consider cultural and social influences on pain and pain management 6. Notify LIP if interventions ineffective or patient reports new pain 7. Monitor vital signs including pulse ox, end-tidal CO2 based on pain intervention 8. Reassess pain per policy 9. Teach patient or legal motor vehicle representative interventions for comforting Outcome: Progressing Note: Evaluation of progress towards goal: Denies pain at this time, will continue to monitor and reassess Problem: Safety Goal: Patient will be injury free during hospitalization Description: INTERVENTIONS: 1. Assess patient's risk for falls and implement fall prevention plan of care per policy 2. Provide and maintain a safe environment 3. Proper use of double Identifiers 4. Medication administration using the 5 rights 5. Hand hygiene 6. Specimens are labeled at the bedside 7. Instruct patient/ patient motor vehicle representative about use of safety devices 8. Include patient/ patient motor vehicle representative in decisions related to safety Outcome: Progressing Note: Evaluation of progress towards goal: Injury free at this time bed locked in the lowest position Problem: Infection Goal: Absence of infection during hospitalization Description: Interventions: 1. Assess and monitor for signs and symptoms of infection 2. Monitor lab/diagnostic results 3. Monitor all insertion sites i.e., indwelling lines, tubes and drains 4. Monitor endotracheal (as able) and nasal secretions for changes in amount and color 5. Administer medications as ordered 6. Instruct and encourage patient and family to use good hand hygiene technique 7. Identify and instruct patient/patient motor vehicle representative in use of appropriate isolation precautions for identified infection/symptoms 8. Provide and discuss with patient/patient motor vehicle representative on educational MDRO sheet 9. Encourage and monitor nutritional status daily and consult hospital ward clerk if indicated 10. Implement neutropenic guidelines as needed 11. Review exposure to history of communicable disease and recent travel history on admission 12. Encourage annual influenza vaccine 13. Encourage pneumonia vaccine Outcome: Progressing Note: Evaluation of progress towards goal: Monitoring s/s, labs and vitals for indications of infection Problem: Knowledge Deficit Goal: Patient/patient motor vehicle representative demonstrates understanding of disease process, treatment plan, medications, and discharge instructions Description: INTERVENTIONS 1. Complete learning assessment and assess knowledge base 2. Provide teaching at level of understanding 3. Provide teaching via preferred learning method(s) Outcome: Progressing Note: Evaluation of progress towards goal: Educating patient and family about disease process, reinforcing anything the patient/family does not understand. Used preferred teaching methods. Problem: Discharge Planning Goal: Discharge to post-acute care, other facility, or home with appropriate resources Description: Patient's goal is: INTERVENTIONS 1. Conduct assessment to determine patient/family and health care team treatment goals, and need for post-acute services based on payer coverage, community resources, and patient preferences, and barriers to discharge 2. Coordinate with Social work, Care Navigation, and Utilization Review to arrange appropriate level of services according to patient's needs based on patient preference and payer coverage in collaboration with the physician and health care team 3. Address psychosocial, clinical, and financial barriers to discharge as identified in assessment in conjunction with the patient/family and health care team 4. Consult appropriate ancillary services (i.e.. PT/OT/ST, etc) as needed 5. Communicate with and update the patient/family, physician, and health care team regarding progress on the discharge plan 6. Identify discharge learning needs (meds, wound care, etc). 7. Arrange for needed discharge transportation as appropriate Outcome: Progressing Note: Evaluation of progress towards goal: Patient is currently ICU patient. Collaborating with interdisciplinary teams to ensure a safe and effective discharge [facility] Transfer Accept Note I have received a request for transfer of primary service for this patient from the ICU team care of Dr. Harris. Clinical handoff report was given. [facility] will assume care as primary team of this patient upon transfer out of the ICU. Edilson Scott MD [facility] Problem: Pain Goal: Patient goal is pain score less than 4, able to rest, and participant in treatment plan as appropriate Description: INTERVENTIONS: 1. Encourage patient or legal motor vehicle representative to report early pain and ask for pain medicine when needed 2. Assess pain using appropriate pain scale and include the scale used when documenting 3. Administer analgesics based on type and severity of pain and evaluate response within appropriate time frame 4. Implement non-pharmacological measures as appropriate and evaluate response 5. Consider cultural and social influences on pain and pain management 6. Notify LIP if interventions ineffective or patient reports new pain 7. Monitor vital signs including pulse ox, end-tidal CO2 based on pain intervention 8. Reassess pain per policy 9. Teach patient or legal motor vehicle representative interventions for comforting Outcome: Progressing Note: Evaluation of progress towards goal: Denies pain at this time, will continue to monitor and reassess Problem: Safety Goal: Patient will be injury free during hospitalization Description: INTERVENTIONS: 1. Assess patient's risk for falls and implement fall prevention plan of care per policy 2. Provide and maintain a safe environment 3. Proper use of double Identifiers 4. Medication administration using the 5 rights 5. Hand hygiene 6. Specimens are labeled at the bedside 7. Instruct patient/ patient motor vehicle representative about use of safety devices 8. Include patient/ patient motor vehicle representative in decisions related to safety Outcome: Progressing Note: Evaluation of progress towards goal: Injury free at this time, bed locked in the lowest position Problem: Infection Goal: Absence of infection during hospitalization Description: Interventions: 1. Assess and monitor for signs and symptoms of infection 2. Monitor lab/diagnostic results 3. Monitor all insertion sites i.e., indwelling lines, tubes and drains 4. Monitor endotracheal (as able) and nasal secretions for changes in amount and color 5. Administer medications as ordered 6. Instruct and encourage patient and family to use good hand hygiene technique 7. Identify and instruct patient/patient motor vehicle representative in use of appropriate isolation precautions for identified infection/symptoms 8. Provide and discuss with patient/patient motor vehicle representative on educational MDRO sheet 9. Encourage and monitor nutritional status daily and consult hospital ward clerk if indicated 10. Implement neutropenic guidelines as needed 11. Review exposure to history of communicable disease and recent travel history on admission 12. Encourage annual influenza vaccine 13. Encourage pneumonia vaccine Outcome: Progressing Note: Evaluation of progress towards goal: Monitoring s/s, labs and vitals for indications of infection Problem: Knowledge Deficit Goal: Patient/patient motor vehicle representative demonstrates understanding of disease process, treatment plan, medications, and discharge instructions Description: INTERVENTIONS 1. Complete learning assessment and assess knowledge base 2. Provide teaching at level of understanding 3. Provide teaching via preferred learning method(s) Outcome: Progressing Note: Evaluation of progress towards goal: Educating patient and family about disease process, reinforcing anything the patient/family does not understand. Used preferred teaching methods. Problem: Discharge Planning Goal: Discharge to post-acute care, other facility, or home with appropriate resources Description: Patient's goal is: INTERVENTIONS 1. Conduct assessment to determine patient/family and health care team treatment goals, and need for post-acute services based on payer coverage, community resources, and patient preferences, and barriers to discharge 2. Coordinate with Social work, Care Navigation, and Utilization Review to arrange appropriate level of services according to patient's needs based on patient preference and payer coverage in collaboration with the physician and health care team 3. Address psychosocial, clinical, and financial barriers to discharge as identified in assessment in conjunction with the patient/family and health care team 4. Consult appropriate ancillary services (i.e.. PT/OT/ST, etc) as needed 5. Communicate with and update the patient/family, physician, and health care team regarding progress on the discharge plan 6. Identify discharge learning needs (meds, wound care, etc). 7. Arrange for needed discharge transportation as appropriate Outcome: Progressing Note: Evaluation of progress towards goal: Patient is currently ICU patient. Collaborating with interdisciplinary teams to ensure a safe and effective discharge Problem: Pain Goal: Patient goal is pain score less than 4, able to rest, and participant in treatment plan as appropriate Description: INTERVENTIONS: 1. Encourage patient or legal motor vehicle representative to report early pain and ask for pain medicine when needed 2. Assess pain using appropriate pain scale and include the scale used when documenting 3. Administer analgesics based on type and severity of pain and evaluate response within appropriate time frame 4. Implement non-pharmacological measures as appropriate and evaluate response 5. Consider cultural and social influences on pain and pain management 6. Notify LIP if interventions ineffective or patient reports new pain 7. Monitor vital signs including pulse ox, end-tidal CO2 based on pain intervention 8. Reassess pain per policy 9. Teach patient or legal motor vehicle representative interventions for comforting Outcome: Progressing Note: Evaluation of progress towards goal: Pt denies pain but repositioned for comfort. Problem: Safety Goal: Patient will be injury free during hospitalization Description: INTERVENTIONS: 1. Assess patient's risk for falls and implement fall prevention plan of care per policy 2. Provide and maintain a safe environment 3. Proper use of double Identifiers 4. Medication administration using the 5 rights 5. Hand hygiene 6. Specimens are labeled at the bedside 7. Instruct patient/ patient motor vehicle representative about use of safety devices 8. Include patient/ patient motor vehicle representative in decisions related to safety Outcome: Progressing Note: Evaluation of progress towards goal: Pt injury free during stay on 9 [address] ICU. Interventions in place. Problem: Infection Goal: Absence of infection during hospitalization Description: Interventions: 1. Assess and monitor for signs and symptoms of infection 2. Monitor lab/diagnostic results 3. Monitor all insertion sites i.e., indwelling lines, tubes and drains 4. Monitor endotracheal (as able) and nasal secretions for changes in amount and color 5. Administer medications as ordered 6. Instruct and encourage patient and family to use good hand hygiene technique 7. Identify and instruct patient/patient motor vehicle representative in use of appropriate isolation precautions for identified infection/symptoms 8. Provide and discuss with patient/patient motor vehicle representative on educational MDRO sheet 9. Encourage and monitor nutritional status daily and consult hospital ward clerk if indicated 10. Implement neutropenic guidelines as needed 11. Review exposure to history of communicable disease and recent travel history on admission 12. Encourage annual influenza vaccine 13. Encourage pneumonia vaccine Outcome: Progressing Note: Evaluation of progress towards goal: Pt afebrile. WBCs 10.5. Pt on Rocephin 1000 mg IVPB every 24 hrs. Blood cultures & urine culture with no growth. Problem: Knowledge Deficit Goal: Patient/patient motor vehicle representative demonstrates understanding of disease process, treatment plan, medications, and discharge instructions Description: INTERVENTIONS 1. Complete learning assessment and assess knowledge base 2. Provide teaching at level of understanding 3. Provide teaching via preferred learning method(s) Outcome: Progressing Note: Evaluation of progress towards goal: Pt updated on plan of care but forgetful. Pt informed of PT to see pt with need to follow up re: home care needs vs Rehab. Problem: Discharge Planning Goal: Discharge to post-acute care, other facility, or home with appropriate resources Description: Patient's goal is: INTERVENTIONS 1. Conduct assessment to determine patient/family and health care team treatment goals, and need for post-acute services based on payer coverage, community resources, and patient preferences, and barriers to discharge 2. Coordinate with Social work, Care Navigation, and Utilization Review to arrange appropriate level of services according to patient's needs based on patient preference and payer coverage in collaboration with the physician and health care team 3. Address psychosocial, clinical, and financial barriers to discharge as identified in assessment in conjunction with the patient/family and health care team 4. Consult appropriate ancillary services (i.e.. PT/OT/ST, etc) as needed 5. Communicate with and update the patient/family, physician, and health care team regarding progress on the discharge plan 6. Identify discharge learning needs (meds, wound care, etc). 7. Arrange for needed discharge transportation as appropriate Outcome: Progressing Note: Evaluation of progress towards goal: Social service to follow re: possible Rehab facility vs home care needs. Problem: Glucose Imbalance Goal: Clinical indication of glucose balance is achieved Description: Patient's goal is: INTERVENTIONS 1. Monitor blood glucose levels as ordered 2. Administer medications as ordered 3. Notify physician of ineffective treatment plan Outcome: Progressing Note: Evaluation of progress towards goal: Glucose level monitored before meals & bedtime with Humalog sliding scale coverage ordered. NV=543 mg/dl with coverage administered per sliding scale. Goal: Patient's discharge needs are met Description: Patient's goal is: INTERVENTIONS 1. Assess patient for self-management skills 2. Encourage participation in diabetes management 3. Identify potential discharge barriers on admission and throughout hospital stay 4. Involve patient/S.O. in discharge planning process 5. Communicate referral to nurse educator as appropriate 6. Communicate referral to hospital ward clerk as appropriate 7. Collaborate with case management/clinical social worker for discharge needs Outcome: Progressing Note: Evaluation of progress towards goal: Pt reports of diabetes controlled with oral hypoglycemic agent metformin 500 mg twice per day. Problem: Potential for Compromised Skin Integrity Goal: Skin integrity is maintained or improved Description: Patient's goal is: INTERVENTIONS 1. Perform initial skin assessment on admission and as needed 2. Turn patient every 2 hours and PRN 3. Relieve pressure to bony prominences 4. Avoid shearing 5. Keep skin clean and dry 6. Alternate a full bath with partial baths for elderly 7. Encourage use of lotion/moisturizer on skin 8. Monitor patient's hygiene practices 9. Float heels 10. Collaborate with interdisciplinary team and initiate plans and interventions as needed Outcome: Progressing Note: Evaluation of progress towards goal: Skin integrity maintained with pt repositioned very 2 hrs. Angelia area between both groin sites with bilateral lower leg edema with some weeping present. Goal: Patient's nutritional intake is adequate Description: Patient's goal is: INTERVENTIONS 1. Assess and monitor food intake and supplements, patient food preferences, nausea, vomiting, labs, oral cavity (gums, teeth, tongue, mucosa), proper denture fit, and cultural beliefs 2. Monitor for signs of hypoglycemia and hyperglycemia 3. Collaborate with interdisciplinary team and initiate plan and interventions as ordered 4. Monitor patient's weight 5. Assist patient with meals/food selection 6. Assist patient with eating 7. Allow adequate time for meals 8. Provide pleasant environment during mealtime 9. Increase social contact during mealtimes 10. Plan activities to conserve energy 11. Encourage/perform oral hygiene as appropriate 12. Encourage patient to take dietary supplement as ordered 13. Collaborate with clinical hospital ward clerk 14. Include patient/ patient's motor vehicle representative in decisions related to nutrition Outcome: Progressing Note: Evaluation of progress towards goal: Pt on Regular 1800 ADA diet with Renal supplement 2 times per day. 1500 ml Fluid Restriction. Problem: Urinary Incontinence Goal: Perineal skin integrity is maintained or improved Description: INTERVENTIONS 1. Assess genitourinary system, perineal skin, labs (urinalysis), and history of incontinence to include past management, aggravating, and alleviating factors 2. Keep skin clean and dry 3. Apply skin protectant 4. Develop skin care regimen 5. Provide privacy when changing patients incontinence device to maintain their dignity 6. Consider placing an indwelling catheter 7. Collaborate with interdisciplinary team and initiate plans and interventions as needed Outcome: Progressing Note: Evaluation of progress towards goal: Perineal skin integrity maintained with CHG wipes for bathing & dasilva care. Groin sites angelia but improved. Problem: Cardiovascular - Adult Goal: Maintains optimal cardiac output and hemodynamic stability Description: Patient's goal is: INTERVENTIONS: 1. Monitor vital signs, rhythm, and trends 2. Monitor for bleeding, hypotension and signs of decreased cardiac output 3. Administer ordered vasoactive medications to optimize hemodynamic stability 4. Monitor arterial and/or venous puncture sites for bleeding and/or hematoma 5. Assess quality of pulses, skin color and temperature Outcome: Progressing Note: Evaluation of progress towards goal: Pt maintaining optimal cardiac output with Echo 40-45% EF. Vitals stable with Metoprolol 50 mg po twice per day & also Lopressor 5 mg IV every 6 hrs PRN for heart rate greater than 120. Atrial fib rhythm. Pt also on Midodrine 10 mg po 3 times per day to keep B/P stable. Problem: Moderate - High Risk Fall Score Description: Sepulveda Fall Score of =/> 25 or indicated by [facility] Assessment Goal: Patient should be free from fall Description: Interventions: 1. [place] to environment 2. Hourly rounds addressing the 4 P's (Pain, Positioning, Possessions, Potty) 3. Clear area of hazards (spills, clutter, electrical cords, unnecessary equipment) 4. Place equipment (bed & TV controls, call light, phone, urinal) within reach 5. Encourage patient to wear glasses and hearing aides as appropriate 6. Maintain bed in lowest position 7. Lock wheels on bed/wheelchair 8. Provide adequate lighting, including night light 9. Assess need for additional bedding, food/fluids, pain med's prior to sleep/routinely 10. Provide gripper slippers or personal non-skid footwear 11. Teach patient and patient motor vehicle representative to maintain environment for safety and engage in all aspects of fall prevention program 12. Remind patient to call for help before getting out of bed 13. Initiate bed/chair/exit alarms supportive devices as appropriate, (chair wedge, no-skid floor mat, raised edge mattress, hip protectors) 14. Locate patient bed assignment for optimal visualization 15. Evaluate and identify Safe Patient Handling Equipment needs 16. Provide supervision when out of bed or chair 17. Utilize gait belt as needed to assist with ambulation 18. Place adaptive equipment (cane, walker) within reach 19. Request patient motor vehicle representative bring adaptive equipment/mobility aids from home or obtain and provide as needed 20. Consult pharmacy regarding effects of med's affecting mobility, cognition, and alternatives 21. Obtain physician order for PT if risk factors associated with mobility are present 22. Obtain physician order for OT as appropriate 23. Utilize diversional activities 24. Educate patient and patient motor vehicle representative how to maintain a safe environment during visitation times (notify nurse prior to leaving bedside) 25. Consider appropriateness of medical or non-certified medical technician 26. Set up voiding schedule as appropriate (every 2 hours) Outcome: Progressing Note: Evaluation of progress towards goal: Pt free from fall with hourly rounding continued & maintained. 4 Ps addressed. Respiratory Therapy Clinical Practice Guidelines Consult Patient Active Problem List Diagnosis Cerumen debris on tympanic membrane of both ears Typical atrial flutter ([facility] [place]) Coronary artery disease involving [place] coronary artery of [place] heart without angina pectoris Tachycardia induced cardiomyopathy ([facility] [place]) Type 2 diabetes mellitus with circulatory disorder, without long-term current use of insulin ([facility] [place]) Other hyperlipidemia Paroxysmal atrial fibrillation ([facility] [place]) BRANDEE (acute kidney injury) ([facility] [place]) Hyperkalemia Bilateral lower extremity edema Systolic and diastolic CHF, acute ([facility] [place]) Acute kidney injury ([facility] [place]) Last Chest XRAY: Reviewed Pulmonary History: reviewed RT Reassessment Due In: 12 hours Bronchodilator Respiratory Rate Level 1: Less than 20 Dyspnea Level 2: Periodic SOB Breath Sounds Level 1: Clear Respiratory History Level 1: None Oxygen to Keep SpO2 Greater Than Or Equal To 92% Level 1: Room air or baseline O2 ; NIV less than or equal to 40% Peak Flow ([facility] Only) Home Therapy: Not Applicable Patients Current Level & Intervention: 1 Every 4 hours PRN for wheezing via nebulizer Problem: Inadequate Breathing Pattern Goal: Patient will maintain effective ventilation Description: Patient's goal is: INTERVENTIONS 1. Assess and monitor vital signs, respiratory status (to include respiratory rate, depth, effort, and breath sounds), oxygen saturation, oral mucosa, tongue, pain, and labs (ABGs). 2. Collaborate with interdisciplinary team and initiate plans and interventions as needed 3. Oxygen therapy as indicated 4. Position patient for maximum ventilatory efficiency 5. Instruct patient to turn, cough, and deep breathe; encourage incentive spirometer if indicated 6. Plan activities to conserve energy 7. Encourage ambulation/activity per patient's tolerance 8. Collaborate with patient/RT to administer medications/treatments 9. Monitor lab/diagnostic results Outcome: Progressing Note: Evaluation of progress towards goal: pt stable on RA. BiPAP at bedside for PRN use Problem: Pain Goal: Patient goal is pain score less than 4, able to rest, and participant in treatment plan as appropriate Description: INTERVENTIONS: 1. Encourage patient or legal motor vehicle representative to report early pain and ask for pain medicine when needed 2. Assess pain using appropriate pain scale and include the scale used when documenting 3. Administer analgesics based on type and severity of pain and evaluate response within appropriate time frame 4. Implement non-pharmacological measures as appropriate and evaluate response 5. Consider cultural and social influences on pain and pain management 6. Notify LIP if interventions ineffective or patient reports new pain 7. Monitor vital signs including pulse ox, end-tidal CO2 based on pain intervention 8. Reassess pain per policy 9. Teach patient or legal motor vehicle representative interventions for comforting Outcome: Progressing Note: Evaluation of progress towards goal: Pt repositioned for comfort. Pt denies pain. Problem: Safety Goal: Patient will be injury free during hospitalization Description: INTERVENTIONS: 1. Assess patient's risk for falls and implement fall prevention plan of care per policy 2. Provide and maintain a safe environment 3. Proper use of double Identifiers 4. Medication administration using the 5 rights 5. Hand hygiene 6. Specimens are labeled at the bedside 7. Instruct patient/ patient motor vehicle representative about use of safety devices 8. Include patient/ patient motor vehicle representative in decisions related to safety Outcome: Progressing Note: Evaluation of progress towards goal: Pt injury free duribg stay on 9 Gen ICU. Interventions in place. Problem: Infection Goal: Absence of infection during hospitalization Description: Interventions: 1. Assess and monitor for signs and symptoms of infection 2. Monitor lab/diagnostic results 3. Monitor all insertion sites i.e., indwelling lines, tubes and drains 4. Monitor endotracheal (as able) and nasal secretions for changes in amount and color 5. Administer medications as ordered 6. Instruct and encourage patient and family to use good hand hygiene technique 7. Identify and instruct patient/patient motor vehicle representative in use of appropriate isolation precautions for identified infection/symptoms 8. Provide and discuss with patient/patient motor vehicle representative on educational MDRO sheet 9. Encourage and monitor nutritional status daily and consult hospital ward clerk if indicated 10. Implement neutropenic guidelines as needed 11. Review exposure to history of communicable disease and recent travel history on admission 12. Encourage annual influenza vaccine 13. Encourage pneumonia vaccine Outcome: Progressing Note: Evaluation of progress towards goal: Pt afebrile. WBCs 10.1. Urine culture no growth 24 hrs. Pt on Rocephin 1000 mg IVPB every 24 hrs. Problem: Knowledge Deficit Goal: Patient/patient motor vehicle representative demonstrates understanding of disease process, treatment plan, medications, and discharge instructions Description: INTERVENTIONS 1. Complete learning assessment and assess knowledge base 2. Provide teaching at level of understanding 3. Provide teaching via preferred learning method(s) Outcome: Progressing Note: Evaluation of progress towards goal: Pt updated on plan of care. Follow up with Hematology for low platelets & GI for rectal bleeding. Problem: Discharge Planning Goal: Discharge to post-acute care, other facility, or home with appropriate resources Description: Patient's goal is: INTERVENTIONS 1. Conduct assessment to determine patient/family and health care team treatment goals, and need for post-acute services based on payer coverage, community resources, and patient preferences, and barriers to discharge 2. Coordinate with Social work, Care Navigation, and Utilization Review to arrange appropriate level of services according to patient's needs based on patient preference and payer coverage in collaboration with the physician and health care team 3. Address psychosocial, clinical, and financial barriers to discharge as identified in assessment in conjunction with the patient/family and health care team 4. Consult appropriate ancillary services (i.e.. PT/OT/ST, etc) as needed 5. Communicate with and update the patient/family, physician, and health care team regarding progress on the discharge plan 6. Identify discharge learning needs (meds, wound care, etc). 7. Arrange for needed discharge transportation as appropriate Outcome: Progressing Note: Evaluation of progress towards goal: Social service to follow re: home care needs vs Rehab. Problem: Glucose Imbalance Goal: Clinical indication of glucose balance is achieved Description: Patient's goal is: INTERVENTIONS 1. Monitor blood glucose levels as ordered 2. Administer medications as ordered 3. Notify physician of ineffective treatment plan Outcome: Progressing Note: Evaluation of progress towards goal: Glucose level 133 mg/dl with no coverage required. BS checked before meals & bedtime with Humalog sliding scale coverage. Goal: Patient's discharge needs are met Description: Patient's goal is: INTERVENTIONS 1. Assess patient for self-management skills 2. Encourage participation in diabetes management 3. Identify potential discharge barriers on admission and throughout hospital stay 4. Involve patient/S.O. in discharge planning process 5. Communicate referral to nurse educator as appropriate 6. Communicate referral to hospital ward clerk as appropriate 7. Collaborate with case management/clinical social worker for discharge needs Outcome: Progressing Note: Evaluation of progress towards goal: Pt reports on oral hypoglycemic agenet at home metformin 500 mg po BID. Problem: Potential for Compromised Skin Integrity Goal: Skin integrity is maintained or improved Description: Patient's goal is: INTERVENTIONS 1. Perform initial skin assessment on admission and as needed 2. Turn patient every 2 hours and PRN 3. Relieve pressure to bony prominences 4. Avoid shearing 5. Keep skin clean and dry 6. Alternate a full bath with partial baths for elderly 7. Encourage use of lotion/moisturizer on skin 8. Monitor patient's hygiene practices 9. Float heels 10. Collaborate with interdisciplinary team and initiate plans and interventions as needed Outcome: Progressing Note: Evaluation of progress towards goal: Skin integrity maintained except for angelia groin sites with improvement & bilateral weeping edema of lower extremities. Pt turned with assistance every 2 hrs. Goal: Patient's nutritional intake is adequate Description: Patient's goal is: INTERVENTIONS 1. Assess and monitor food intake and supplements, patient food preferences, nausea, vomiting, labs, oral cavity (gums, teeth, tongue, mucosa), proper denture fit, and cultural beliefs 2. Monitor for signs of hypoglycemia and hyperglycemia 3. Collaborate with interdisciplinary team and initiate plan and interventions as ordered 4. Monitor patient's weight 5. Assist patient with meals/food selection 6. Assist patient with eating 7. Allow adequate time for meals 8. Provide pleasant environment during mealtime 9. Increase social contact during mealtimes 10. Plan activities to conserve energy 11. Encourage/perform oral hygiene as appropriate 12. Encourage patient to take dietary supplement as ordered 13. Collaborate with clinical hospital ward clerk 14. Include patient/ patient's motor vehicle representative in decisions related to nutrition Outcome: Progressing Note: Evaluation of progress towards goal: Pt on Regular diet 1800 ADA with 1500 ml Fluid Restriction. Problem: Urinary Incontinence Goal: Perineal skin integrity is maintained or improved Description: INTERVENTIONS 1. Assess genitourinary system, perineal skin, labs (urinalysis), and history of incontinence to include past management, aggravating, and alleviating factors 2. Keep skin clean and dry 3. Apply skin protectant 4. Develop skin care regimen 5. Provide privacy when changing patients incontinence device to maintain their dignity 6. Consider placing an indwelling catheter 7. Collaborate with interdisciplinary team and initiate plans and interventions as needed Outcome: Progressing Note: Evaluation of progress towards goal: Perineal skin integrity maintained with use of CHG wipes for bathing & dasilva care. Problem: Cardiovascular - Adult Goal: Maintains optimal cardiac output and hemodynamic stability Description: Patient's goal is: INTERVENTIONS: 1. Monitor vital signs, rhythm, and trends 2. Monitor for bleeding, hypotension and signs of decreased cardiac output 3. Administer ordered vasoactive medications to optimize hemodynamic stability 4. Monitor arterial and/or venous puncture sites for bleeding and/or hematoma 5. Assess quality of pulses, skin color and temperature Outcome: Progressing Note: Evaluation of progress towards goal: Pt maintaining optimal cardiac output with irregular Atrial fib rhythm. HR increasing with Metoprolol restarted. Pt remains off Levophed with Midodrine 1o mg po 3 times per day. Cardiac Echo EF 40-45%. Vitals otherwise with stable B/P. Problem: Moderate - High Risk Fall Score Description: Sepulveda Fall Score of =/> 25 or indicated by [facility] Assessment Goal: Patient should be free from fall Description: Interventions: 1. [place] to environment 2. Hourly rounds addressing the 4 P's (Pain, Positioning, Possessions, Potty) 3. Clear area of hazards (spills, clutter, electrical cords, unnecessary equipment) 4. Place equipment (bed & TV controls, call light, phone, urinal) within reach 5. Encourage patient to wear glasses and hearing aides as appropriate 6. Maintain bed in lowest position 7. Lock wheels on bed/wheelchair 8. Provide adequate lighting, including night light 9. Assess need for additional bedding, food/fluids, pain med's prior to sleep/routinely 10. Provide gripper slippers or personal non-skid footwear 11. Teach patient and patient motor vehicle representative to maintain environment for safety and engage in all aspects of fall prevention program 12. Remind patient to call for help before getting out of bed 13. Initiate bed/chair/exit alarms supportive devices as appropriate, (chair wedge, no-skid floor mat, raised edge mattress, hip protectors) 14. Locate patient bed assignment for optimal visualization 15. Evaluate and identify Safe Patient Handling Equipment needs 16. Provide supervision when out of bed or chair 17. Utilize gait belt as needed to assist with ambulation 18. Place adaptive equipment (cane, walker) within reach 19. Request patient motor vehicle representative bring adaptive equipment/mobility aids from home or obtain and provide as needed 20. Consult pharmacy regarding effects of med's affecting mobility, cognition, and alternatives 21. Obtain physician order for PT if risk factors associated with mobility are present 22. Obtain physician order for OT as appropriate 23. Utilize diversional activities 24. Educate patient and patient motor vehicle representative how to maintain a safe environment during visitation times (notify nurse prior to leaving bedside) 25. Consider appropriateness of medical or non-certified medical technician 26. Set up voiding schedule as appropriate (every 2 hours) Outcome: Progressing Note: Evaluation of progress towards goal: Pt free from fall with hourly rounding continued & maintained. 4 Ps addressed. Problem: Pain Goal: Patient goal is pain score less than 4, able to rest, and participant in treatment plan as appropriate Description: INTERVENTIONS: 1. Encourage patient or legal motor vehicle representative to report early pain and ask for pain medicine when needed 2. Assess pain using appropriate pain scale and include the scale used when documenting 3. Administer analgesics based on type and severity of pain and evaluate response within appropriate time frame 4. Implement non-pharmacological measures as appropriate and evaluate response 5. Consider cultural and social influences on pain and pain management 6. Notify LIP if interventions ineffective or patient reports new pain 7. Monitor vital signs including pulse ox, end-tidal CO2 based on pain intervention 8. Reassess pain per policy 9. Teach patient or legal motor vehicle representative interventions for comforting Note: Evaluation of progress towards goal: Patient reports no pain at this time. Assessing pain q4 hours and PRN. Problem: Safety Goal: Patient will be injury free during hospitalization Description: INTERVENTIONS: 1. Assess patient's risk for falls and implement fall prevention plan of care per policy 2. Provide and maintain a safe environment 3. Proper use of double Identifiers 4. Medication administration using the 5 rights 5. Hand hygiene 6. Specimens are labeled at the bedside 7. Instruct patient/ patient motor vehicle representative about use of safety devices 8. Include patient/ patient motor vehicle representative in decisions related to safety Note: Evaluation of progress towards goal: Patient remains free from injury due to hospitalization at this time. Problem: Infection Goal: Absence of infection during hospitalization Description: Interventions: 1. Assess and monitor for signs and symptoms of infection 2. Monitor lab/diagnostic results 3. Monitor all insertion sites i.e., indwelling lines, tubes and drains 4. Monitor endotracheal (as able) and nasal secretions for changes in amount and color 5. Administer medications as ordered 6. Instruct and encourage patient and family to use good hand hygiene technique 7. Identify and instruct patient/patient motor vehicle representative in use of appropriate isolation precautions for identified infection/symptoms 8. Provide and discuss with patient/patient motor vehicle representative on educational MDRO sheet 9. Encourage and monitor nutritional status daily and consult hospital ward clerk if indicated 10. Implement neutropenic guidelines as needed 11. Review exposure to history of communicable disease and recent travel history on admission 12. Encourage annual influenza vaccine 13. Encourage pneumonia vaccine Note: Evaluation of progress towards goal: Patient remains free from infection due to hospitalization. Patient remains afebrile at this time. Problem: Knowledge Deficit Goal: Patient/patient motor vehicle representative demonstrates understanding of disease process, treatment plan, medications, and discharge instructions Description: INTERVENTIONS 1. Complete learning assessment and assess knowledge base 2. Provide teaching at level of understanding 3. Provide teaching via preferred learning method(s) Note: Evaluation of progress towards goal: Patient demonstrates understanding of plan of care and treatment plan at this time. Problem: Discharge Planning Goal: Discharge to post-acute care, other facility, or home with appropriate resources Description: Patient's goal is: INTERVENTIONS 1. Conduct assessment to determine patient/family and health care team treatment goals, and need for post-acute services based on payer coverage, community resources, and patient preferences, and barriers to discharge 2. Coordinate with Social work, Care Navigation, and Utilization Review to arrange appropriate level of services according to patient's needs based on patient preference and payer coverage in collaboration with the physician and health care team 3. Address psychosocial, clinical, and financial barriers to discharge as identified in assessment in conjunction with the patient/family and health care team 4. Consult appropriate ancillary services (i.e.. PT/OT/ST, etc) as needed 5. Communicate with and update the patient/family, physician, and health care team regarding progress on the discharge plan 6. Identify discharge learning needs (meds, wound care, etc). 7. Arrange for needed discharge transportation as appropriate Note: Evaluation of progress towards goal: No discharge planning at this time. Problem: Moderate - High Risk Fall Score Description: Sepulveda Fall Score of =/> 25 or indicated by [facility] Assessment Goal: Patient should be free from fall Description: Interventions: 1. [place] to environment 2. Hourly rounds addressing the 4 P's (Pain, Positioning, Possessions, Potty) 3. Clear area of hazards (spills, clutter, electrical cords, unnecessary equipment) 4. Place equipment (bed & TV controls, call light, phone, urinal) within reach 5. Encourage patient to wear glasses and hearing aides as appropriate 6. Maintain bed in lowest position 7. Lock wheels on bed/wheelchair 8. Provide adequate lighting, including night light 9. Assess need for additional bedding, food/fluids, pain med's prior to sleep/routinely 10. Provide gripper slippers or personal non-skid footwear 11. Teach patient and patient motor vehicle representative to maintain environment for safety and engage in all aspects of fall prevention program 12. Remind patient to call for help before getting out of bed 13. Initiate bed/chair/exit alarms supportive devices as appropriate, (chair wedge, no-skid floor mat, raised edge mattress, hip protectors) 14. Locate patient bed assignment for optimal visualization 15. Evaluate and identify Safe Patient Handling Equipment needs 16. Provide supervision when out of bed or chair 17. Utilize gait belt as needed to assist with ambulation 18. Place adaptive equipment (cane, walker) within reach 19. Request patient motor vehicle representative bring adaptive equipment/mobility aids from home or obtain and provide as needed 20. Consult pharmacy regarding effects of med's affecting mobility, cognition, and alternatives 21. Obtain physician order for PT if risk factors associated with mobility are present 22. Obtain physician order for OT as appropriate 23. Utilize diversional activities 24. Educate patient and patient motor vehicle representative how to maintain a safe environment during visitation times (notify nurse prior to leaving bedside) 25. Consider appropriateness of medical or non-certified medical technician 26. Set up voiding schedule as appropriate (every 2 hours) Note: Evaluation of progress towards goal: No falls at this time. Problem: Pain Goal: Patient goal is pain score less than 4, able to rest, and participant in treatment plan as appropriate Description: INTERVENTIONS: 1. Encourage patient or legal motor vehicle representative to report early pain and ask for pain medicine when needed 2. Assess pain using appropriate pain scale and include the scale used when documenting 3. Administer analgesics based on type and severity of pain and evaluate response within appropriate time frame 4. Implement non-pharmacological measures as appropriate and evaluate response 5. Consider cultural and social influences on pain and pain management 6. Notify LIP if interventions ineffective or patient reports new pain 7. Monitor vital signs including pulse ox, end-tidal CO2 based on pain intervention 8. Reassess pain per policy 9. Teach patient or legal motor vehicle representative interventions for comforting Outcome: Progressing Note: Evaluation of progress towards goal: Pt repositioned for comfort. Pt denies pain. Problem: Safety Goal: Patient will be injury free during hospitalization Description: INTERVENTIONS: 1. Assess patient's risk for falls and implement fall prevention plan of care per policy 2. Provide and maintain a safe environment 3. Proper use of double Identifiers 4. Medication administration using the 5 rights 5. Hand hygiene 6. Specimens are labeled at the bedside 7. Instruct patient/ patient motor vehicle representative about use of safety devices 8. Include patient/ patient motor vehicle representative in decisions related to safety Outcome: Progressing Note: Evaluation of progress towards goal: Pt injury free during stay on 9 Gen ICU. Interventions incorporated. Problem: Infection Goal: Absence of infection during hospitalization Description: Interventions: 1. Assess and monitor for signs and symptoms of infection 2. Monitor lab/diagnostic results 3. Monitor all insertion sites i.e., indwelling lines, tubes and drains 4. Monitor endotracheal (as able) and nasal secretions for changes in amount and color 5. Administer medications as ordered 6. Instruct and encourage patient and family to use good hand hygiene technique 7. Identify and instruct patient/patient motor vehicle representative in use of appropriate isolation precautions for identified infection/symptoms 8. Provide and discuss with patient/patient motor vehicle representative on educational MDRO sheet 9. Encourage and monitor nutritional status daily and consult hospital ward clerk if indicated 10. Implement neutropenic guidelines as needed 11. Review exposure to history of communicable disease and recent travel history on admission 12. Encourage annual influenza vaccine 13. Encourage pneumonia vaccine Outcome: Progressing Note: Evaluation of progress towards goal: Pt afebrile. WBCs 8.5. No antibiotics at this time. Blood cultures no growth. Urine culture sent. Problem: Knowledge Deficit Goal: Patient/patient motor vehicle representative demonstrates understanding of disease process, treatment plan, medications, and discharge instructions Description: INTERVENTIONS 1. Complete learning assessment and assess knowledge base 2. Provide teaching at level of understanding 3. Provide teaching via preferred learning method(s) Outcome: Progressing Note: Evaluation of progress towards goal: Pt updated on plan of care with orders for urine culture & blood work for Heparin infusion until bridged back to Coumadin. Problem: Discharge Planning Goal: Discharge to post-acute care, other facility, or home with appropriate resources Description: Patient's goal is: INTERVENTIONS 1. Conduct assessment to determine patient/family and health care team treatment goals, and need for post-acute services based on payer coverage, community resources, and patient preferences, and barriers to discharge 2. Coordinate with Social work, Care Navigation, and Utilization Review to arrange appropriate level of services according to patient's needs based on patient preference and payer coverage in collaboration with the physician and health care team 3. Address psychosocial, clinical, and financial barriers to discharge as identified in assessment in conjunction with the patient/family and health care team 4. Consult appropriate ancillary services (i.e.. PT/OT/ST, etc) as needed 5. Communicate with and update the patient/family, physician, and health care team regarding progress on the discharge plan 6. Identify discharge learning needs (meds, wound care, etc). 7. Arrange for needed discharge transportation as appropriate Outcome: Progressing Note: Evaluation of progress towards goal: Social service to follow re: home care needs vs Rehab facility. Problem: Glucose Imbalance Goal: Clinical indication of glucose balance is achieved Description: Patient's goal is: INTERVENTIONS 1. Monitor blood glucose levels as ordered 2. Administer medications as ordered 3. Notify physician of ineffective treatment plan Outcome: Progressing Note: Evaluation of progress towards goal: Glucose invaj=499 mg/dl with no Humalog coverage required. BS checked before meals & at bedtime with Humalog coverage per sliding scale. Goal: Patient's discharge needs are met Description: Patient's goal is: INTERVENTIONS 1. Assess patient for self-management skills 2. Encourage participation in diabetes management 3. Identify potential discharge barriers on admission and throughout hospital stay 4. Involve patient/S.O. in discharge planning process 5. Communicate referral to nurse educator as appropriate 6. Communicate referral to hospital ward clerk as appropriate 7. Collaborate with case management/clinical social worker for discharge needs Outcome: Progressing Note: Evaluation of progress towards goal: Pt reports on ly taking oral hyppglycemic agent at home metformin 500 mg twice per day. Problem: Potential for Compromised Skin Integrity Goal: Skin integrity is maintained or improved Description: Patient's goal is: INTERVENTIONS 1. Perform initial skin assessment on admission and as needed 2. Turn patient every 2 hours and PRN 3. Relieve pressure to bony prominences 4. Avoid shearing 5. Keep skin clean and dry 6. Alternate a full bath with partial baths for elderly 7. Encourage use of lotion/moisturizer on skin 8. Monitor patient's hygiene practices 9. Float heels 10. Collaborate with interdisciplinary team and initiate plans and interventions as needed Outcome: Progressing Note: Evaluation of progress towards goal: Skin integrity maintained. Weeping decreased of lower extremities. Groin areas angelia. Pt turned every 2 hrs. Goal: Patient's nutritional intake is adequate Description: Patient's goal is: INTERVENTIONS 1. Assess and monitor food intake and supplements, patient food preferences, nausea, vomiting, labs, oral cavity (gums, teeth, tongue, mucosa), proper denture fit, and cultural beliefs 2. Monitor for signs of hypoglycemia and hyperglycemia 3. Collaborate with interdisciplinary team and initiate plan and interventions as ordered 4. Monitor patient's weight 5. Assist patient with meals/food selection 6. Assist patient with eating 7. Allow adequate time for meals 8. Provide pleasant environment during mealtime 9. Increase social contact during mealtimes 10. Plan activities to conserve energy 11. Encourage/perform oral hygiene as appropriate 12. Encourage patient to take dietary supplement as ordered 13. Collaborate with clinical hospital ward clerk 14. Include patient/ patient's motor vehicle representative in decisions related to nutrition Outcome: Progressing Note: Evaluation of progress towards goal: Pt progressed to Regular 1800 ADA diet with 1500 ml Fluid Restriction. Problem: Urinary Incontinence Goal: Perineal skin integrity is maintained or improved Description: INTERVENTIONS 1. Assess genitourinary system, perineal skin, labs (urinalysis), and history of incontinence to include past management, aggravating, and alleviating factors 2. Keep skin clean and dry 3. Apply skin protectant 4. Develop skin care regimen 5. Provide privacy when changing patients incontinence device to maintain their dignity 6. Consider placing an indwelling catheter 7. Collaborate with interdisciplinary team and initiate plans and interventions as needed Outcome: Progressing Note: Evaluation of progress towards goal: Perineal skin integrity maintained with CHG wipes for bathing & dasilva care. Problem: Cardiovascular - Adult Goal: Maintains optimal cardiac output and hemodynamic stability Description: Patient's goal is: INTERVENTIONS: 1. Monitor vital signs, rhythm, and trends 2. Monitor for bleeding, hypotension and signs of decreased cardiac output 3. Administer ordered vasoactive medications to optimize hemodynamic stability 4. Monitor arterial and/or venous puncture sites for bleeding and/or hematoma 5. Assess quality of pulses, skin color and temperature Outcome: Progressing Note: Evaluation of progress towards goal: Pt maintaining optimal cardiac output with vitals stable without any pressors. Levophed dc'd. Pt on Midodrine 10 mg 3 times per day. Cardiac Echo with 40-45% EF. Heart rhythm Atrial fib. Problem: Moderate - High Risk Fall Score Description: Sepulveda Fall Score of =/> 25 or indicated by [facility] Assessment Goal: Patient should be free from fall Description: Interventions: 1. [place] to environment 2. Hourly rounds addressing the 4 P's (Pain, Positioning, Possessions, Potty) 3. Clear area of hazards (spills, clutter, electrical cords, unnecessary equipment) 4. Place equipment (bed & TV controls, call light, phone, urinal) within reach 5. Encourage patient to wear glasses and hearing aides as appropriate 6. Maintain bed in lowest position 7. Lock wheels on bed/wheelchair 8. Provide adequate lighting, including night light 9. Assess need for additional bedding, food/fluids, pain med's prior to sleep/routinely 10. Provide gripper slippers or personal non-skid footwear 11. Teach patient and patient motor vehicle representative to maintain environment for safety and engage in all aspects of fall prevention program 12. Remind patient to call for help before getting out of bed 13. Initiate bed/chair/exit alarms supportive devices as appropriate, (chair wedge, no-skid floor mat, raised edge mattress, hip protectors) 14. Locate patient bed assignment for optimal visualization 15. Evaluate and identify Safe Patient Handling Equipment needs 16. Provide supervision when out of bed or chair 17. Utilize gait belt as needed to assist with ambulation 18. Place adaptive equipment (cane, walker) within reach 19. Request patient motor vehicle representative bring adaptive equipment/mobility aids from home or obtain and provide as needed 20. Consult pharmacy regarding effects of med's affecting mobility, cognition, and alternatives 21. Obtain physician order for PT if risk factors associated with mobility are present 22. Obtain physician order for OT as appropriate 23. Utilize diversional activities 24. Educate patient and patient motor vehicle representative how to maintain a safe environment during visitation times (notify nurse prior to leaving bedside) 25. Consider appropriateness of medical or non-certified medical technician 26. Set up voiding schedule as appropriate (every 2 hours) Outcome: Progressing Note: Evaluation of progress towards goal: Pt free from fall with hourly rounding continued & maintained. 4 Ps addressed. Problem: Pain Goal: Patient goal is pain score less than 4, able to rest, and participant in treatment plan as appropriate Description: INTERVENTIONS: 1. Encourage patient or legal motor vehicle representative to report early pain and ask for pain medicine when needed 2. Assess pain using appropriate pain scale and include the scale used when documenting 3. Administer analgesics based on type and severity of pain and evaluate response within appropriate time frame 4. Implement non-pharmacological measures as appropriate and evaluate response 5. Consider cultural and social influences on pain and pain management 6. Notify LIP if interventions ineffective or patient reports new pain 7. Monitor vital signs including pulse ox, end-tidal CO2 based on pain intervention 8. Reassess pain per policy 9. Teach patient or legal motor vehicle representative interventions for comforting Outcome: Progressing Note: Evaluation of progress towards goal: Pt able to verbalize pain level and uses appropriate pain scale Problem: Safety Goal: Patient will be injury free during hospitalization Description: INTERVENTIONS: 1. Assess patient's risk for falls and implement fall prevention plan of care per policy 2. Provide and maintain a safe environment 3. Proper use of double Identifiers 4. Medication administration using the 5 rights 5. Hand hygiene 6. Specimens are labeled at the bedside 7. Instruct patient/ patient motor vehicle representative about use of safety devices 8. Include patient/ patient motor vehicle representative in decisions related to safety Outcome: Progressing Note: Evaluation of progress towards goal: Pt remains free from injury with safe environment and hand hygiene maintained Problem: Infection Goal: Absence of infection during hospitalization Description: Interventions: 1. Assess and monitor for signs and symptoms of infection 2. Monitor lab/diagnostic results 3. Monitor all insertion sites i.e., indwelling lines, tubes and drains 4. Monitor endotracheal (as able) and nasal secretions for changes in amount and color 5. Administer medications as ordered 6. Instruct and encourage patient and family to use good hand hygiene technique 7. Identify and instruct patient/patient motor vehicle representative in use of appropriate isolation precautions for identified infection/symptoms 8. Provide and discuss with patient/patient motor vehicle representative on educational MDRO sheet 9. Encourage and monitor nutritional status daily and consult hospital ward clerk if indicated 10. Implement neutropenic guidelines as needed 11. Review exposure to history of communicable disease and recent travel history on admission 12. Encourage annual influenza vaccine 13. Encourage pneumonia vaccine Outcome: Progressing Note: Evaluation of progress towards goal: Pt remains free of infection. Will continue to monitor vital signs and labs for signs/symptoms of infection Problem: Knowledge Deficit Goal: Patient/patient motor vehicle representative demonstrates understanding of disease process, treatment plan, medications, and discharge instructions Description: INTERVENTIONS 1. Complete learning assessment and assess knowledge base 2. Provide teaching at level of understanding 3. Provide teaching via preferred learning method(s) Outcome: Progressing Note: Evaluation of progress towards goal: Pt/pt motor vehicle representative demonstrates understanding of plan of care, treatment, and medicatiions Problem: Discharge Planning Goal: Discharge to post-acute care, other facility, or home with appropriate resources Description: Patient's goal is: INTERVENTIONS 1. Conduct assessment to determine patient/family and health care team treatment goals, and need for post-acute services based on payer coverage, community resources, and patient preferences, and barriers to discharge 2. Coordinate with Social work, Care Navigation, and Utilization Review to arrange appropriate level of services according to patient's needs based on patient preference and payer coverage in collaboration with the physician and health care team 3. Address psychosocial, clinical, and financial barriers to discharge as identified in assessment in conjunction with the patient/family and health care team 4. Consult appropriate ancillary services (i.e.. PT/OT/ST, etc) as needed 5. Communicate with and update the patient/family, physician, and health care team regarding progress on the discharge plan 6. Identify discharge learning needs (meds, wound care, etc). 7. Arrange for needed discharge transportation as appropriate Outcome: Progressing Note: Evaluation of progress towards goal: Appropriate coordination with ancillary departments in place for post-acute care transition according to patient preference Problem: Potential for Compromised Skin Integrity Goal: Skin integrity is maintained or improved Description: Patient's goal is: INTERVENTIONS 1. Perform initial skin assessment on admission and as needed 2. Turn patient every 2 hours and PRN 3. Relieve pressure to bony prominences 4. Avoid shearing 5. Keep skin clean and dry 6. Alternate a full bath with partial baths for elderly 7. Encourage use of lotion/moisturizer on skin 8. Monitor patient's hygiene practices 9. Float heels 10. Collaborate with interdisciplinary team and initiate plans and interventions as needed Outcome: Progressing Note: Evaluation of progress towards goal: Pt turned every 2 hours relieving pressure to bony prominences and keeping skin clean and dry Goal: Patient's nutritional intake is adequate Description: Patient's goal is: INTERVENTIONS 1. Assess and monitor food intake and supplements, patient food preferences, nausea, vomiting, labs, oral cavity (gums, teeth, tongue, mucosa), proper denture fit, and cultural beliefs 2. Monitor for signs of hypoglycemia and hyperglycemia 3. Collaborate with interdisciplinary team and initiate plan and interventions as ordered 4. Monitor patient's weight 5. Assist patient with meals/food selection 6. Assist patient with eating 7. Allow adequate time for meals 8. Provide pleasant environment during mealtime 9. Increase social contact during mealtimes 10. Plan activities to conserve energy 11. Encourage/perform oral hygiene as appropriate 12. Encourage patient to take dietary supplement as ordered 13. Collaborate with clinical hospital ward clerk 14. Include patient/ patient's motor vehicle representative in decisions related to nutrition Outcome: Progressing Note: Evaluation of progress towards goal: Continue to monitor and assess pt for dietary intake, daily weight, and collaboration with interdisciplinary teams for needed interventions Problem: Urinary Incontinence Goal: Perineal skin integrity is maintained or improved Description: INTERVENTIONS 1. Assess genitourinary system, perineal skin, labs (urinalysis), and history of incontinence to include past management, aggravating, and alleviating factors 2. Keep skin clean and dry 3. Apply skin protectant 4. Develop skin care regimen 5. Provide privacy when changing patients incontinence device to maintain their dignity 6. Consider placing an indwelling catheter 7. Collaborate with interdisciplinary team and initiate plans and interventions as needed Outcome: Progressing Note: Evaluation of progress towards goal: Pt able to verbalize pain level and uses appropriate pain scale Problem: Moderate - High Risk Fall Score Description: Sepulveda Fall Score of =/> 25 or indicated by [facility] Assessment Goal: Patient should be free from fall Description: Interventions: 1. [place] to environment 2. Hourly rounds addressing the 4 P's (Pain, Positioning, Possessions, Potty) 3. Clear area of hazards (spills, clutter, electrical cords, unnecessary equipment) 4. Place equipment (bed & TV controls, call light, phone, urinal) within reach 5. Encourage patient to wear glasses and hearing aides as appropriate 6. Maintain bed in lowest position 7. Lock wheels on bed/wheelchair 8. Provide adequate lighting, including night light 9. Assess need for additional bedding, food/fluids, pain med's prior to sleep/routinely 10. Provide gripper slippers or personal non-skid footwear 11. Teach patient and patient motor vehicle representative to maintain environment for safety and engage in all aspects of fall prevention program 12. Remind patient to call for help before getting out of bed 13. Initiate bed/chair/exit alarms supportive devices as appropriate, (chair wedge, no-skid floor mat, raised edge mattress, hip protectors) 14. Locate patient bed assignment for optimal visualization 15. Evaluate and identify Safe Patient Handling Equipment needs 16. Provide supervision when out of bed or chair 17. Utilize gait belt as needed to assist with ambulation 18. Place adaptive equipment (cane, walker) within reach 19. Request patient motor vehicle representative bring adaptive equipment/mobility aids from home or obtain and provide as needed 20. Consult pharmacy regarding effects of med's affecting mobility, cognition, and alternatives 21. Obtain physician order for PT if risk factors associated with mobility are present 22. Obtain physician order for OT as appropriate 23. Utilize diversional activities 24. Educate patient and patient motor vehicle representative how to maintain a safe environment during visitation times (notify nurse prior to leaving bedside) 25. Consider appropriateness of medical or non-certified medical technician 26. Set up voiding schedule as appropriate (every 2 hours) Outcome: Progressing Note: Evaluation of progress towards goal: Pt remains free from falls. Bed locked in low position, area free of hazards, adequate lighting, and call light within reach Problem: Pain Goal: Patient goal is pain score less than 4, able to rest, and participant in treatment plan as appropriate Description: INTERVENTIONS: 1. Encourage patient or legal motor vehicle representative to report early pain and ask for pain medicine when needed 2. Assess pain using appropriate pain scale and include the scale used when documenting 3. Administer analgesics based on type and severity of pain and evaluate response within appropriate time frame 4. Implement non-pharmacological measures as appropriate and evaluate response 5. Consider cultural and social influences on pain and pain management 6. Notify LIP if interventions ineffective or patient reports new pain 7. Monitor vital signs including pulse ox, end-tidal CO2 based on pain intervention 8. Reassess pain per policy 9. Teach patient or legal motor vehicle representative interventions for comforting Outcome: Progressing Note: Evaluation of progress towards goal: Patient denies pain at this time; comfort measures applied; PRN pain medications available if needed. Plan of care continues that patient pain is being managed appropriately. Problem: Safety Goal: Patient will be injury free during hospitalization Description: INTERVENTIONS: 1. Assess patient's risk for falls and implement fall prevention plan of care per policy 2. Provide and maintain a safe environment 3. Proper use of double Identifiers 4. Medication administration using the 5 rights 5. Hand hygiene 6. Specimens are labeled at the bedside 7. Instruct patient/ patient motor vehicle representative about use of safety devices 8. Include patient/ patient motor vehicle representative in decisions related to safety Outcome: Progressing Note: Evaluation of progress towards goal: Patient's safety maintained throughout stay. Plan of care will be continued. Problem: Infection Goal: Absence of infection during hospitalization Description: Interventions: 1. Assess and monitor for signs and symptoms of infection 2. Monitor lab/diagnostic results 3. Monitor all insertion sites i.e., indwelling lines, tubes and drains 4. Monitor endotracheal (as able) and nasal secretions for changes in amount and color 5. Administer medications as ordered 6. Instruct and encourage patient and family to use good hand hygiene technique 7. Identify and instruct patient/patient motor vehicle representative in use of appropriate isolation precautions for identified infection/symptoms 8. Provide and discuss with patient/patient motor vehicle representative on educational MDRO sheet 9. Encourage and monitor nutritional status daily and consult hospital ward clerk if indicated 10. Implement neutropenic guidelines as needed 11. Review exposure to history of communicable disease and recent travel history on admission 12. Encourage annual influenza vaccine 13. Encourage pneumonia vaccine Outcome: Progressing Note: Evaluation of progress towards goal: Infection safety policies will be applied to patient's care. Monitoring s/s, labs, and vitals for indications of infection. Problem: Knowledge Deficit Goal: Patient/patient motor vehicle representative demonstrates understanding of disease process, treatment plan, medications, and discharge instructions Description: INTERVENTIONS 1. Complete learning assessment and assess knowledge base 2. Provide teaching at level of understanding 3. Provide teaching via preferred learning method(s) Outcome: Progressing Note: Evaluation of progress towards goal: Patient demonstrates evidence of learning but needs assistance. Patient informed on plan of care. Problem: Discharge Planning Goal: Discharge to post-acute care, other facility, or home with appropriate resources Description: Patient's goal is: INTERVENTIONS 1. Conduct assessment to determine patient/family and health care team treatment goals, and need for post-acute services based on payer coverage, community resources, and patient preferences, and barriers to discharge 2. Coordinate with Social work, Care Navigation, and Utilization Review to arrange appropriate level of services according to patient's needs based on patient preference and payer coverage in collaboration with the physician and health care team 3. Address psychosocial, clinical, and financial barriers to discharge as identified in assessment in conjunction with the patient/family and health care team 4. Consult appropriate ancillary services (i.e.. PT/OT/ST, etc) as needed 5. Communicate with and update the patient/family, physician, and health care team regarding progress on the discharge plan 6. Identify discharge learning needs (meds, wound care, etc). 7. Arrange for needed discharge transportation as appropriate Outcome: Progressing Note: Evaluation of progress towards goal: currently ICU patient working with interdisciplinary team on discharge needs. Problem: Glucose Imbalance Goal: Clinical indication of glucose balance is achieved Description: Patient's goal is: INTERVENTIONS 1. Monitor blood glucose levels as ordered 2. Administer medications as ordered 3. Notify physician of ineffective treatment plan Outcome: Progressing Note: Evaluation of progress towards goal: Patient glucose being monitored per order. Insulin being administered per order. Goal: Patient's discharge needs are met Description: Patient's goal is: INTERVENTIONS 1. Assess patient for self-management skills 2. Encourage participation in diabetes management 3. Identify potential discharge barriers on admission and throughout hospital stay 4. Involve patient/S.O. in discharge planning process 5. Communicate referral to nurse educator as appropriate 6. Communicate referral to hospital ward clerk as appropriate 7. Collaborate with case management/clinical social worker for discharge needs Outcome: Progressing Note: Evaluation of progress towards goal: currently ICU patient working with interdisciplinary team on discharge needs. Problem: Potential for Compromised Skin Integrity Goal: Skin integrity is maintained or improved Description: Patient's goal is: INTERVENTIONS 1. Perform initial skin assessment on admission and as needed 2. Turn patient every 2 hours and PRN 3. Relieve pressure to bony prominences 4. Avoid shearing 5. Keep skin clean and dry 6. Alternate a full bath with partial baths for elderly 7. Encourage use of lotion/moisturizer on skin 8. Monitor patient's hygiene practices 9. Float heels 10. Collaborate with interdisciplinary team and initiate plans and interventions as needed Outcome: Progressing Note: Evaluation of progress towards goal: Skin assessments are being performed Q4 and PRN. Skin abnormalities can be found in the flow sheets. Goal: Patient's nutritional intake is adequate Description: Patient's goal is: INTERVENTIONS 1. Assess and monitor food intake and supplements, patient food preferences, nausea, vomiting, labs, oral cavity (gums, teeth, tongue, mucosa), proper denture fit, and cultural beliefs 2. Monitor for signs of hypoglycemia and hyperglycemia 3. Collaborate with interdisciplinary team and initiate plan and interventions as ordered 4. Monitor patient's weight 5. Assist patient with meals/food selection 6. Assist patient with eating 7. Allow adequate time for meals 8. Provide pleasant environment during mealtime 9. Increase social contact during mealtimes 10. Plan activities to conserve energy 11. Encourage/perform oral hygiene as appropriate 12. Encourage patient to take dietary supplement as ordered 13. Collaborate with clinical hospital ward clerk 14. Include patient/ patient's motor vehicle representative in decisions related to nutrition Outcome: Progressing Note: Evaluation of progress towards goal: Patient is currently a regular diet per order. Problem: Urinary Incontinence Goal: Perineal skin integrity is maintained or improved Description: INTERVENTIONS 1. Assess genitourinary system, perineal skin, labs (urinalysis), and history of incontinence to include past management, aggravating, and alleviating factors 2. Keep skin clean and dry 3. Apply skin protectant 4. Develop skin care regimen 5. Provide privacy when changing patients incontinence device to maintain their dignity 6. Consider placing an indwelling catheter 7. Collaborate with interdisciplinary team and initiate plans and interventions as needed Outcome: Progressing Note: Evaluation of progress towards goal: Patient has a dasilva. Dasilva being monitored throughout shift. I & Os being charted in flowsheets. Problem: Moderate - High Risk Fall Score Description: Sepulveda Fall Score of =/> 25 or indicated by [facility] Assessment Goal: Patient should be free from fall Description: Interventions: 1. [place] to environment 2. Hourly rounds addressing the 4 P's (Pain, Positioning, Possessions, Potty) 3. Clear area of hazards (spills, clutter, electrical cords, unnecessary equipment) 4. Place equipment (bed & TV controls, call light, phone, urinal) within reach 5. Encourage patient to wear glasses and hearing aides as appropriate 6. Maintain bed in lowest position 7. Lock wheels on bed/wheelchair 8. Provide adequate lighting, including night light 9. Assess need for additional bedding, food/fluids, pain med's prior to sleep/routinely 10. Provide gripper slippers or personal non-skid footwear 11. Teach patient and patient motor vehicle representative to maintain environment for safety and engage in all aspects of fall prevention program 12. Remind patient to call for help before getting out of bed 13. Initiate bed/chair/exit alarms supportive devices as appropriate, (chair wedge, no-skid floor mat, raised edge mattress, hip protectors) 14. Locate patient bed assignment for optimal visualization 15. Evaluate and identify Safe Patient Handling Equipment needs 16. Provide supervision when out of bed or chair 17. Utilize gait belt as needed to assist with ambulation 18. Place adaptive equipment (cane, walker) within reach 19. Request patient motor vehicle representative bring adaptive equipment/mobility aids from home or obtain and provide as needed 20. Consult pharmacy regarding effects of med's affecting mobility, cognition, and alternatives 21. Obtain physician order for PT if risk factors associated with mobility are present 22. Obtain physician order for OT as appropriate 23. Utilize diversional activities 24. Educate patient and patient motor vehicle representative how to maintain a safe environment during visitation times (notify nurse prior to leaving bedside) 25. Consider appropriateness of medical or non-certified medical technician 26. Set up voiding schedule as appropriate (every 2 hours) Outcome: Progressing Note: Evaluation of progress towards goal: Fall prevention measures are being implemented to prevent and reduce the risk of patient falls. Problem: Pain Goal: Patient goal is pain score less than 4, able to rest, and participant in treatment plan as appropriate Description: INTERVENTIONS: 1. Encourage patient or legal motor vehicle representative to report early pain and ask for pain medicine when needed 2. Assess pain using appropriate pain scale and include the scale used when documenting 3. Administer analgesics based on type and severity of pain and evaluate response within appropriate time frame 4. Implement non-pharmacological measures as appropriate and evaluate response 5. Consider cultural and social influences on pain and pain management 6. Notify LIP if interventions ineffective or patient reports new pain 7. Monitor vital signs including pulse ox, end-tidal CO2 based on pain intervention 8. Reassess pain per policy 9. Teach patient or legal motor vehicle representative interventions for comforting Outcome: Progressing Note: Evaluation of progress towards goal: Pt able to verbalize pain level and uses appropriate pain scale Problem: Safety Goal: Patient will be injury free during hospitalization Description: INTERVENTIONS: 1. Assess patient's risk for falls and implement fall prevention plan of care per policy 2. Provide and maintain a safe environment 3. Proper use of double Identifiers 4. Medication administration using the 5 rights 5. Hand hygiene 6. Specimens are labeled at the bedside 7. Instruct patient/ patient motor vehicle representative about use of safety devices 8. Include patient/ patient motor vehicle representative in decisions related to safety Outcome: Progressing Note: Evaluation of progress towards goal: Pt remains free from injury with safe environment and hand hygiene maintained Problem: Infection Goal: Absence of infection during hospitalization Description: Interventions: 1. Assess and monitor for signs and symptoms of infection 2. Monitor lab/diagnostic results 3. Monitor all insertion sites i.e., indwelling lines, tubes and drains 4. Monitor endotracheal (as able) and nasal secretions for changes in amount and color 5. Administer medications as ordered 6. Instruct and encourage patient and family to use good hand hygiene technique 7. Identify and instruct patient/patient motor vehicle representative in use of appropriate isolation precautions for identified infection/symptoms 8. Provide and discuss with patient/patient motor vehicle representative on educational MDRO sheet 9. Encourage and monitor nutritional status daily and consult hospital ward clerk if indicated 10. Implement neutropenic guidelines as needed 11. Review exposure to history of communicable disease and recent travel history on admission 12. Encourage annual influenza vaccine 13. Encourage pneumonia vaccine Outcome: Progressing Note: Evaluation of progress towards goal: Pt remains free of infection. Will continue to monitor vital signs and labs for signs/symptoms of infection Problem: Knowledge Deficit Goal: Patient/patient motor vehicle representative demonstrates understanding of disease process, treatment plan, medications, and discharge instructions Description: INTERVENTIONS 1. Complete learning assessment and assess knowledge base 2. Provide teaching at level of understanding 3. Provide teaching via preferred learning method(s) Outcome: Progressing Note: Evaluation of progress towards goal: Pt/pt motor vehicle representative demonstrates understanding of plan of care, treatment, and medicatiions Problem: Discharge Planning Goal: Discharge to post-acute care, other facility, or home with appropriate resources Description: Patient's goal is: INTERVENTIONS 1. Conduct assessment to determine patient/family and health care team treatment goals, and need for post-acute services based on payer coverage, community resources, and patient preferences, and barriers to discharge 2. Coordinate with Social work, Care Navigation, and Utilization Review to arrange appropriate level of services according to patient's needs based on patient preference and payer coverage in collaboration with the physician and health care team 3. Address psychosocial, clinical, and financial barriers to discharge as identified in assessment in conjunction with the patient/family and health care team 4. Consult appropriate ancillary services (i.e.. PT/OT/ST, etc) as needed 5. Communicate with and update the patient/family, physician, and health care team regarding progress on the discharge plan 6. Identify discharge learning needs (meds, wound care, etc). 7. Arrange for needed discharge transportation as appropriate Outcome: Progressing Note: Evaluation of progress towards goal: Appropriate coordination with ancillary departments in place for post-acute care transition according to patient preference Problem: Potential for Compromised Skin Integrity Goal: Skin integrity is maintained or improved Description: Patient's goal is: INTERVENTIONS 1. Perform initial skin assessment on admission and as needed 2. Turn patient every 2 hours and PRN 3. Relieve pressure to bony prominences 4. Avoid shearing 5. Keep skin clean and dry 6. Alternate a full bath with partial baths for elderly 7. Encourage use of lotion/moisturizer on skin 8. Monitor patient's hygiene practices 9. Float heels 10. Collaborate with interdisciplinary team and initiate plans and interventions as needed Outcome: Progressing Note: Evaluation of progress towards goal: Pt able to turn and reposition self. Continue to keep skin clean and dry Goal: Patient's nutritional intake is adequate Description: Patient's goal is: INTERVENTIONS 1. Assess and monitor food intake and supplements, patient food preferences, nausea, vomiting, labs, oral cavity (gums, teeth, tongue, mucosa), proper denture fit, and cultural beliefs 2. Monitor for signs of hypoglycemia and hyperglycemia 3. Collaborate with interdisciplinary team and initiate plan and interventions as ordered 4. Monitor patient's weight 5. Assist patient with meals/food selection 6. Assist patient with eating 7. Allow adequate time for meals 8. Provide pleasant environment during mealtime 9. Increase social contact during mealtimes 10. Plan activities to conserve energy 11. Encourage/perform oral hygiene as appropriate 12. Encourage patient to take dietary supplement as ordered 13. Collaborate with clinical hospital ward clerk 14. Include patient/ patient's motor vehicle representative in decisions related to nutrition Outcome: Progressing Note: Evaluation of progress towards goal: Continue to monitor and assess pt for dietary intake, daily weight, and collaboration with interdisciplinary teams for needed interventions Problem: Urinary Incontinence Goal: Perineal skin integrity is maintained or improved Description: INTERVENTIONS 1. Assess genitourinary system, perineal skin, labs (urinalysis), and history of incontinence to include past management, aggravating, and alleviating factors 2. Keep skin clean and dry 3. Apply skin protectant 4. Develop skin care regimen 5. Provide privacy when changing patients incontinence device to maintain their dignity 6. Consider placing an indwelling catheter 7. Collaborate with interdisciplinary team and initiate plans and interventions as needed Outcome: Progressing Note: Evaluation of progress towards goal: Pt perineal skin kept clean and dry with appropriate skin care regimen Problem: Moderate - High Risk Fall Score Description: Sepulveda Fall Score of =/> 25 or indicated by [facility] Assessment Goal: Patient should be free from fall Description: Interventions: 1. [place] to environment 2. Hourly rounds addressing the 4 P's (Pain, Positioning, Possessions, Potty) 3. Clear area of hazards (spills, clutter, electrical cords, unnecessary equipment) 4. Place equipment (bed & TV controls, call light, phone, urinal) within reach 5. Encourage patient to wear glasses and hearing aides as appropriate 6. Maintain bed in lowest position 7. Lock wheels on bed/wheelchair 8. Provide adequate lighting, including night light 9. Assess need for additional bedding, food/fluids, pain med's prior to sleep/routinely 10. Provide gripper slippers or personal non-skid footwear 11. Teach patient and patient motor vehicle representative to maintain environment for safety and engage in all aspects of fall prevention program 12. Remind patient to call for help before getting out of bed 13. Initiate bed/chair/exit alarms supportive devices as appropriate, (chair wedge, no-skid floor mat, raised edge mattress, hip protectors) 14. Locate patient bed assignment for optimal visualization 15. Evaluate and identify Safe Patient Handling Equipment needs 16. Provide supervision when out of bed or chair 17. Utilize gait belt as needed to assist with ambulation 18. Place adaptive equipment (cane, walker) within reach 19. Request patient motor vehicle representative bring adaptive equipment/mobility aids from home or obtain and provide as needed 20. Consult pharmacy regarding effects of med's affecting mobility, cognition, and alternatives 21. Obtain physician order for PT if risk factors associated with mobility are present 22. Obtain physician order for OT as appropriate 23. Utilize diversional activities 24. Educate patient and patient motor vehicle representative how to maintain a safe environment during visitation times (notify nurse prior to leaving bedside) 25. Consider appropriateness of medical or non-certified medical technician 26. Set up voiding schedule as appropriate (every 2 hours) Outcome: Progressing Note: Evaluation of progress towards goal: Pt remains free from falls. Bed locked in low position, area free of hazards, adequate lighting, and call light within reach DISCHARGE PLANNING NOTE Referral sent to [facility] (P# [phone] ; F# [phone]) via Attender for Renal [facility] (P# [phone] ; F# [phone]) Images from the original note were not included. DISCHARGE PLANNING NOTE Manager Of Regulatory Affairs met with patient, introduced self, and explained role. Patient educated on safe discharge plan. Pt admitted 09/20/2023 with Acute kidney injury (CMS-HCC) [N17.9] per chart review. 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 Medical equipment patient used prior to admission includes: None. Patient denies need for transportation/ food/ prescription medication assistance resources. PCP: Carol Akins PA-C PCP and pharmacy confirmed with patient. CN offered to assist with follow up appointment arrangements; patient declines - states will self-schedule follow up appointments. Carol Akins PA-C added to Follow Up Providers for Summary of Care communication. Per patient self-report: Drug use: no Smoking: No ETOH Use: no Current discharge plan is: pending, possible HHC and referral to outpt dialysis. Renal in [place]. [facility] tasked to send HD referral. Services Requested: Services Requested Discharge Disposition: Outpatient Dialysis Outpatient Dialysis Name: [facility] Initial DC Assessment Completed: Yes Goals: Goals home (pt-stated) Evaluation of progress towards goal: feeling better, up in room Will continue to follow as plan of care develops. CN discussed benefits and importance of medication compliance and follow ups. Please feel free to reach out for any discharge planning questions. - Christy Todd RN 09/22/23 12:34 PM Problem: Pain Goal: Patient goal is pain score less than 4, able to rest, and participant in treatment plan as appropriate Description: INTERVENTIONS: 1. Encourage patient or legal motor vehicle representative to report early pain and ask for pain medicine when needed 2. Assess pain using appropriate pain scale and include the scale used when documenting 3. Administer analgesics based on type and severity of pain and evaluate response within appropriate time frame 4. Implement non-pharmacological measures as appropriate and evaluate response 5. Consider cultural and social influences on pain and pain management 6. Notify LIP if interventions ineffective or patient reports new pain 7. Monitor vital signs including pulse ox, end-tidal CO2 based on pain intervention 8. Reassess pain per policy 9. Teach patient or legal motor vehicle representative interventions for comforting Outcome: Progressing Note: Evaluation of progress towards goal: Pt repositioned for comfort. Pt denies pain. Problem: Safety Goal: Patient will be injury free during hospitalization Description: INTERVENTIONS: 1. Assess patient's risk for falls and implement fall prevention plan of care per policy 2. Provide and maintain a safe environment 3. Proper use of double Identifiers 4. Medication administration using the 5 rights 5. Hand hygiene 6. Specimens are labeled at the bedside 7. Instruct patient/ patient motor vehicle representative about use of safety devices 8. Include patient/ patient motor vehicle representative in decisions related to safety Outcome: Progressing Note: Evaluation of progress towards goal: Pt injury free during stay on 9 Gen ICU. Interventions incorporated. Problem: Infection Goal: Absence of infection during hospitalization Description: Interventions: 1. Assess and monitor for signs and symptoms of infection 2. Monitor lab/diagnostic results 3. Monitor all insertion sites i.e., indwelling lines, tubes and drains 4. Monitor endotracheal (as able) and nasal secretions for changes in amount and color 5. Administer medications as ordered 6. Instruct and encourage patient and family to use good hand hygiene technique 7. Identify and instruct patient/patient motor vehicle representative in use of appropriate isolation precautions for identified infection/symptoms 8. Provide and discuss with patient/patient motor vehicle representative on educational MDRO sheet 9. Encourage and monitor nutritional status daily and consult hospital ward clerk if indicated 10. Implement neutropenic guidelines as needed 11. Review exposure to history of communicable disease and recent travel history on admission 12. Encourage annual influenza vaccine 13. Encourage pneumonia vaccine Outcome: Progressing Note: Evaluation of progress towards goal: Pt afebrile. WBCs 10.0. Pt on Rocephin 1000 mg IVPB every 24 hrs. Problem: Knowledge Deficit Goal: Patient/patient motor vehicle representative demonstrates understanding of disease process, treatment plan, medications, and discharge instructions Description: INTERVENTIONS 1. Complete learning assessment and assess knowledge base 2. Provide teaching at level of understanding 3. Provide teaching via preferred learning method(s) Outcome: Progressing Note: Evaluation of progress towards goal: Pt updated on plan of care. Informed pt of dialysis treatment to help correct kidneys. Problem: Discharge Planning Goal: Discharge to post-acute care, other facility, or home with appropriate resources Description: Patient's goal is: INTERVENTIONS 1. Conduct assessment to determine patient/family and health care team treatment goals, and need for post-acute services based on payer coverage, community resources, and patient preferences, and barriers to discharge 2. Coordinate with Social work, Care Navigation, and Utilization Review to arrange appropriate level of services according to patient's needs based on patient preference and payer coverage in collaboration with the physician and health care team 3. Address psychosocial, clinical, and financial barriers to discharge as identified in assessment in conjunction with the patient/family and health care team 4. Consult appropriate ancillary services (i.e.. PT/OT/ST, etc) as needed 5. Communicate with and update the patient/family, physician, and health care team regarding progress on the discharge plan 6. Identify discharge learning needs (meds, wound care, etc). 7. Arrange for needed discharge transportation as appropriate Outcome: Progressing Note: Evaluation of progress towards goal: Social service to follow re: home care needs vs Rehab. Problem: Glucose Imbalance Goal: Clinical indication of glucose balance is achieved Description: Patient's goal is: INTERVENTIONS 1. Monitor blood glucose levels as ordered 2. Administer medications as ordered 3. Notify physician of ineffective treatment plan Outcome: Progressing Note: Evaluation of progress towards goal: Glucose level =138 mg/dl with no Humalog sliding scale coverage required. BS checked before meals & at bedtime with Humalog sliding scale coverage. Goal: Patient's discharge needs are met Description: Patient's goal is: INTERVENTIONS 1. Assess patient for self-management skills 2. Encourage participation in diabetes management 3. Identify potential discharge barriers on admission and throughout hospital stay 4. Involve patient/S.O. in discharge planning process 5. Communicate referral to nurse educator as appropriate 6. Communicate referral to hospital ward clerk as appropriate 7. Collaborate with case management/clinical social worker for discharge needs Outcome: Progressing Note: Evaluation of progress towards goal: Pt reports only on oral hypoglycemic agent Metformin 500 mg twice per day. Problem: Potential for Compromised Skin Integrity Goal: Skin integrity is maintained or improved Description: Patient's goal is: INTERVENTIONS 1. Perform initial skin assessment on admission and as needed 2. Turn patient every 2 hours and PRN 3. Relieve pressure to bony prominences 4. Avoid shearing 5. Keep skin clean and dry 6. Alternate a full bath with partial baths for elderly 7. Encourage use of lotion/moisturizer on skin 8. Monitor patient's hygiene practices 9. Float heels 10. Collaborate with interdisciplinary team and initiate plans and interventions as needed Outcome: Progressing Note: Evaluation of progress towards goal: Skin integrity maintained with lower extremity weeping from edema, Legs elevated. Groin area angelia. Use of anti-fungal powder. Pt turned every 2 hrs. Goal: Patient's nutritional intake is adequate Description: Patient's goal is: INTERVENTIONS 1. Assess and monitor food intake and supplements, patient food preferences, nausea, vomiting, labs, oral cavity (gums, teeth, tongue, mucosa), proper denture fit, and cultural beliefs 2. Monitor for signs of hypoglycemia and hyperglycemia 3. Collaborate with interdisciplinary team and initiate plan and interventions as ordered 4. Monitor patient's weight 5. Assist patient with meals/food selection 6. Assist patient with eating 7. Allow adequate time for meals 8. Provide pleasant environment during mealtime 9. Increase social contact during mealtimes 10. Plan activities to conserve energy 11. Encourage/perform oral hygiene as appropriate 12. Encourage patient to take dietary supplement as ordered 13. Collaborate with clinical hospital ward clerk 14. Include patient/ patient's motor vehicle representative in decisions related to nutrition Outcome: Progressing Note: Evaluation of progress towards goal: Pt's diet advanced to 1800 ADA Regular diet with 1500 ml Fluid Restriction. Problem: Urinary Incontinence Goal: Perineal skin integrity is maintained or improved Description: INTERVENTIONS 1. Assess genitourinary system, perineal skin, labs (urinalysis), and history of incontinence to include past management, aggravating, and alleviating factors 2. Keep skin clean and dry 3. Apply skin protectant 4. Develop skin care regimen 5. Provide privacy when changing patients incontinence device to maintain their dignity 6. Consider placing an indwelling catheter 7. Collaborate with interdisciplinary team and initiate plans and interventions as needed Outcome: Progressing Note: Evaluation of progress towards goal: Perineal skin integrity maintained with CHG wipes for bathing & dasilva care. Use of anti-fungal powder bilateral groin sites. Problem: Cardiovascular - Adult Goal: Maintains optimal cardiac output and hemodynamic stability Description: Patient's goal is: INTERVENTIONS: 1. Monitor vital signs, rhythm, and trends 2. Monitor for bleeding, hypotension and signs of decreased cardiac output 3. Administer ordered vasoactive medications to optimize hemodynamic stability 4. Monitor arterial and/or venous puncture sites for bleeding and/or hematoma 5. Assess quality of pulses, skin color and temperature Outcome: Progressing Note: Evaluation of progress towards goal: Pt maintaining optimal cardiac output with vitals stable with weaning Levophed drip off to keep MAP above 65. Atrial fib rhythm with cardiac Echo 40-45%. Pt on Midodrine 10 mg 3 times per day. Problem: Moderate - High Risk Fall Score Description: Sepulveda Fall Score of =/> 25 or indicated by [facility] Rehab Assessment Goal: Patient should be free from fall Description: Interventions: 1. [place] to environment 2. Hourly rounds addressing the 4 P's (Pain, Positioning, Possessions, Potty) 3. Clear area of hazards (spills, clutter, electrical cords, unnecessary equipment) 4. Place equipment (bed & TV controls, call light, phone, urinal) within reach 5. Encourage patient to wear glasses and hearing aides as appropriate 6. Maintain bed in lowest position 7. Lock wheels on bed/wheelchair 8. Provide adequate lighting, including night light 9. Assess need for additional bedding, food/fluids, pain med's prior to sleep/routinely 10. Provide gripper slippers or personal non-skid footwear 11. Teach patient and patient motor vehicle representative to maintain environment for safety and engage in all aspects of fall prevention program 12. Remind patient to call for help before getting out of bed 13. Initiate bed/chair/exit alarms supportive devices as appropriate, (chair wedge, no-skid floor mat, raised edge mattress, hip protectors) 14. Locate patient bed assignment for optimal visualization 15. Evaluate and identify Safe Patient Handling Equipment needs 16. Provide supervision when out of bed or chair 17. Utilize gait belt as needed to assist with ambulation 18. Place adaptive equipment (cane, walker) within reach 19. Request patient motor vehicle representative bring adaptive equipment/mobility aids from home or obtain and provide as needed 20. Consult pharmacy regarding effects of med's affecting mobility, cognition, and alternatives 21. Obtain physician order for PT if risk factors associated with mobility are present 22. Obtain physician order for OT as appropriate 23. Utilize diversional activities 24. Educate patient and patient motor vehicle representative how to maintain a safe environment during visitation times (notify nurse prior to leaving bedside) 25. Consider appropriateness of medical or non-certified medical technician 26. Set up voiding schedule as appropriate (every 2 hours) Outcome: Progressing Note: Evaluation of progress towards goal: Pt free from fall with hourly rounding continued & maintained with 4 Ps addressed. Problem: Cardiovascular - Adult Goal: Maintains optimal cardiac output and hemodynamic stability Description: INTERVENTIONS: 1. Monitor BP and heart rate. 2. Monitor urine output and notify LIP for values outside of normal range. 3. Assess for signs of decreased cardiac output. 4. Administer fluid and/or volume expanders as ordered. 5. Administer vasoactive medications as ordered. 6. For PPHN infants, administer sedation as ordered and minimize all controllable stressors. Patient's goal is: INTERVENTIONS: 1. Monitor vital signs, rhythm, and trends 2. Monitor for bleeding, hypotension and signs of decreased cardiac output 3. Administer ordered vasoactive medications to optimize hemodynamic stability 4. Monitor arterial and/or venous puncture sites for bleeding and/or hematoma 5. Assess quality of pulses, skin color and temperature 09/21/2023 0434 by ALONDRA Morin Outcome: Completed Note: Evaluation of progress towards goal: Wrong care plan need adult 09/21/2023 043 by ALONDRA Morin Outcome: Progressing Note: Evaluation of progress towards goal:Pt on Levophed drip to keep MAP above 65. Vitals stable with heart rhythm Atrial Fib. Continue to wean Levophed drip. Problem: Pain Goal: Patient goal is pain score less than 4, able to rest, and participant in treatment plan as appropriate Description: INTERVENTIONS: 1. Encourage patient or legal motor vehicle representative to report early pain and ask for pain medicine when needed 2. Assess pain using appropriate pain scale and include the scale used when documenting 3. Administer analgesics based on type and severity of pain and evaluate response within appropriate time frame 4. Implement non-pharmacological measures as appropriate and evaluate response 5. Consider cultural and social influences on pain and pain management 6. Notify LIP if interventions ineffective or patient reports new pain 7. Monitor vital signs including pulse ox, end-tidal CO2 based on pain intervention 8. Reassess pain per policy 9. Teach patient or legal motor vehicle representative interventions for comforting Outcome: Progressing Note: Evaluation of progress towards goal: Pt denies pain. Pt repositioned for comfort. Problem: Safety Goal: Patient will be injury free during hospitalization Description: INTERVENTIONS: 1. Assess patient's risk for falls and implement fall prevention plan of care per policy 2. Provide and maintain a safe environment 3. Proper use of double Identifiers 4. Medication administration using the 5 rights 5. Hand hygiene 6. Specimens are labeled at the bedside 7. Instruct patient/ patient motor vehicle representative about use of safety devices 8. Include patient/ patient motor vehicle representative in decisions related to safety Outcome: Progressing Note: Evaluation of progress towards goal: Pt injury free during stay on 9 Gen ICU. Interventions in place. Problem: Infection Goal: Absence of infection during hospitalization Description: Interventions: 1. Assess and monitor for signs and symptoms of infection 2. Monitor lab/diagnostic results 3. Monitor all insertion sites i.e., indwelling lines, tubes and drains 4. Monitor endotracheal (as able) and nasal secretions for changes in amount and color 5. Administer medications as ordered 6. Instruct and encourage patient and family to use good hand hygiene technique 7. Identify and instruct patient/patient motor vehicle representative in use of appropriate isolation precautions for identified infection/symptoms 8. Provide and discuss with patient/patient motor vehicle representative on educational MDRO sheet 9. Encourage and monitor nutritional status daily and consult hospital ward clerk if indicated 10. Implement neutropenic guidelines as needed 11. Review exposure to history of communicable disease and recent travel history on admission 12. Encourage annual influenza vaccine 13. Encourage pneumonia vaccine Outcome: Progressing Note: Evaluation of progress towards goal: Pt afebrile. WBCs 9.7. Pt on Rocephin 1000 mg IVPB every 24 hrs. Blood cultures no growth. Problem: Knowledge Deficit Goal: Patient/patient motor vehicle representative demonstrates understanding of disease process, treatment plan, medications, and discharge instructions Description: INTERVENTIONS 1. Complete learning assessment and assess knowledge base 2. Provide teaching at level of understanding 3. Provide teaching via preferred learning method(s) Outcome: Progressing Note: Evaluation of progress towards goal: Pt & updated on plan of care with continued efforts to wean down Levophed drip to keep MAP above 65. Problem: Discharge Planning Goal: Discharge to post-acute care, other facility, or home with appropriate resources Description: Patient's goal is: INTERVENTIONS 1. Conduct assessment to determine patient/family and health care team treatment goals, and need for post-acute services based on payer coverage, community resources, and patient preferences, and barriers to discharge 2. Coordinate with Social work, Care Navigation, and Utilization Review to arrange appropriate level of services according to patient's needs based on patient preference and payer coverage in collaboration with the physician and health care team 3. Address psychosocial, clinical, and financial barriers to discharge as identified in assessment in conjunction with the patient/family and health care team 4. Consult appropriate ancillary services (i.e.. PT/OT/ST, etc) as needed 5. Communicate with and update the patient/family, physician, and health care team regarding progress on the discharge plan 6. Identify discharge learning needs (meds, wound care, etc). 7. Arrange for needed discharge transportation as appropriate Outcome: Progressing Note: Evaluation of progress towards goal: Social service to follow re: home care needs vs Rehab facility. Problem: Glucose Imbalance Goal: Clinical indication of glucose balance is achieved Description: Patient's goal is: INTERVENTIONS 1. Monitor blood glucose levels as ordered 2. Administer medications as ordered 3. Notify physician of ineffective treatment plan Outcome: Progressing Note: Evaluation of progress towards goal: Glucose level =139 mg/dl. No coverage required. Pt on Humalog sliding scale coverage before meals & bedtime. Goal: Patient's discharge needs are met Description: Patient's goal is: INTERVENTIONS 1. Assess patient for self-management skills 2. Encourage participation in diabetes management 3. Identify potential discharge barriers on admission and throughout hospital stay 4. Involve patient/S.O. in discharge planning process 5. Communicate referral to nurse educator as appropriate 6. Communicate referral to hospital ward clerk as appropriate 7. Collaborate with case management/clinical social worker for discharge needs Outcome: Progressing Note: Evaluation of progress towards goal: Continue to monitor BS & Insulin needs. Pt on oral hypoglycemic agent Metformin 500 mg twice per day. Problem: Potential for Compromised Skin Integrity Goal: Skin integrity is maintained or improved Description: Patient's goal is: INTERVENTIONS 1. Perform initial skin assessment on admission and as needed 2. Turn patient every 2 hours and PRN 3. Relieve pressure to bony prominences 4. Avoid shearing 5. Keep skin clean and dry 6. Alternate a full bath with partial baths for elderly 7. Encourage use of lotion/moisturizer on skin 8. Monitor patient's hygiene practices 9. Float heels 10. Collaborate with interdisciplinary team and initiate plans and interventions as needed Outcome: Progressing Note: Evaluation of progress towards goal: Skin integrity maintained. Pt turned every 2 hrs. Legs elevated up on pillow. Weeping & edema of bilateral lower legs with small open area on left renee area. Goal: Patient's nutritional intake is adequate Description: Patient's goal is: INTERVENTIONS 1. Assess and monitor food intake and supplements, patient food preferences, nausea, vomiting, labs, oral cavity (gums, teeth, tongue, mucosa), proper denture fit, and cultural beliefs 2. Monitor for signs of hypoglycemia and hyperglycemia 3. Collaborate with interdisciplinary team and initiate plan and interventions as ordered 4. Monitor patient's weight 5. Assist patient with meals/food selection 6. Assist patient with eating 7. Allow adequate time for meals 8. Provide pleasant environment during mealtime 9. Increase social contact during mealtimes 10. Plan activities to conserve energy 11. Encourage/perform oral hygiene as appropriate 12. Encourage patient to take dietary supplement as ordered 13. Collaborate with clinical hospital ward clerk 14. Include patient/ patient's motor vehicle representative in decisions related to nutrition Outcome: Progressing Note: Evaluation of progress towards goal: Pt taking sips with medications. No diet ordered. Problem: Urinary Incontinence Goal: Perineal skin integrity is maintained or improved Description: INTERVENTIONS 1. Assess genitourinary system, perineal skin, labs (urinalysis), and history of incontinence to include past management, aggravating, and alleviating factors 2. Keep skin clean and dry 3. Apply skin protectant 4. Develop skin care regimen 5. Provide privacy when changing patients incontinence device to maintain their dignity 6. Consider placing an indwelling catheter 7. Collaborate with interdisciplinary team and initiate plans and interventions as needed Outcome: Progressing Note: Evaluation of progress towards goal: Perineal skin integrity maintained with CHG wipes for bathing & dasilva care provided. Problem: Pain Goal: Patient goal is pain score less than 4, able to rest, and participant in treatment plan as appropriate Description: INTERVENTIONS: 1. Encourage patient or legal motor vehicle representative to report early pain and ask for pain medicine when needed 2. Assess pain using appropriate pain scale and include the scale used when documenting 3. Administer analgesics based on type and severity of pain and evaluate response within appropriate time frame 4. Implement non-pharmacological measures as appropriate and evaluate response 5. Consider cultural and social influences on pain and pain management 6. Notify LIP if interventions ineffective or patient reports new pain 7. Monitor vital signs including pulse ox, end-tidal CO2 based on pain intervention 8. Reassess pain per policy 9. Teach patient or legal motor vehicle representative interventions for comforting Outcome: Progressing Note: Evaluation of progress towards goal: Pt denies pain. Pt repositioned for comfort. Problem: Safety Goal: Patient will be injury free during hospitalization Description: INTERVENTIONS: 1. Assess patient's risk for falls and implement fall prevention plan of care per policy 2. Provide and maintain a safe environment 3. Proper use of double Identifiers 4. Medication administration using the 5 rights 5. Hand hygiene 6. Specimens are labeled at the bedside 7. Instruct patient/ patient motor vehicle representative about use of safety devices 8. Include patient/ patient motor vehicle representative in decisions related to safety Outcome: Progressing Note: Evaluation of progress towards goal: Pt injury free during stay on 9 Gen ICU. Interventions in place. Problem: Infection Goal: Absence of infection during hospitalization Description: Interventions: 1. Assess and monitor for signs and symptoms of infection 2. Monitor lab/diagnostic results 3. Monitor all insertion sites i.e., indwelling lines, tubes and drains 4. Monitor endotracheal (as able) and nasal secretions for changes in amount and color 5. Administer medications as ordered 6. Instruct and encourage patient and family to use good hand hygiene technique 7. Identify and instruct patient/patient motor vehicle representative in use of appropriate isolation precautions for identified infection/symptoms 8. Provide and discuss with patient/patient motor vehicle representative on educational MDRO sheet 9. Encourage and monitor nutritional status daily and consult hospital ward clerk if indicated 10. Implement neutropenic guidelines as needed 11. Review exposure to history of communicable disease and recent travel history on admission 12. Encourage annual influenza vaccine 13. Encourage pneumonia vaccine Outcome: Progressing Note: Evaluation of progress towards goal: Pt afebrile. WBCs 9.7. Pt on Rocephin 1000 mg IVPB every 24 hrs. Blood cultures no growth. Problem: Knowledge Deficit Goal: Patient/patient motor vehicle representative demonstrates understanding of disease process, treatment plan, medications, and discharge instructions Description: INTERVENTIONS 1. Complete learning assessment and assess knowledge base 2. Provide teaching at level of understanding 3. Provide teaching via preferred learning method(s) Outcome: Progressing Note: Evaluation of progress towards goal: Pt & updated on plan of care with continued efforts to wean down Levophed drip to keep MAP above 65. Problem: Discharge Planning Goal: Discharge to post-acute care, other facility, or home with appropriate resources Description: Patient's goal is: INTERVENTIONS 1. Conduct assessment to determine patient/family and health care team treatment goals, and need for post-acute services based on payer coverage, community resources, and patient preferences, and barriers to discharge 2. Coordinate with Social work, Care Navigation, and Utilization Review to arrange appropriate level of services according to patient's needs based on patient preference and payer coverage in collaboration with the physician and health care team 3. Address psychosocial, clinical, and financial barriers to discharge as identified in assessment in conjunction with the patient/family and health care team 4. Consult appropriate ancillary services (i.e.. PT/OT/ST, etc) as needed 5. Communicate with and update the patient/family, physician, and health care team regarding progress on the discharge plan 6. Identify discharge learning needs (meds, wound care, etc). 7. Arrange for needed discharge transportation as appropriate Outcome: Progressing Note: Evaluation of progress towards goal: Social service to follow re: home care needs vs Rehab facility. Problem: Glucose Imbalance Goal: Clinical indication of glucose balance is achieved Description: Patient's goal is: INTERVENTIONS 1. Monitor blood glucose levels as ordered 2. Administer medications as ordered 3. Notify physician of ineffective treatment plan Outcome: Progressing Note: Evaluation of progress towards goal: Glucose level =139 mg/dl. No coverage required. Pt on Humalog sliding scale coverage before meals & bedtime. Goal: Patient's discharge needs are met Description: Patient's goal is: INTERVENTIONS 1. Assess patient for self-management skills 2. Encourage participation in diabetes management 3. Identify potential discharge barriers on admission and throughout hospital stay 4. Involve patient/S.O. in discharge planning process 5. Communicate referral to nurse educator as appropriate 6. Communicate referral to hospital ward clerk as appropriate 7. Collaborate with case management/clinical social worker for discharge needs Outcome: Progressing Note: Evaluation of progress towards goal: Continue to monitor BS & Insulin needs. Pt on oral hypoglycemic agent Metformin 500 mg twice per day. Problem: Potential for Compromised Skin Integrity Goal: Skin integrity is maintained or improved Description: Patient's goal is: INTERVENTIONS 1. Perform initial skin assessment on admission and as needed 2. Turn patient every 2 hours and PRN 3. Relieve pressure to bony prominences 4. Avoid shearing 5. Keep skin clean and dry 6. Alternate a full bath with partial baths for elderly 7. Encourage use of lotion/moisturizer on skin 8. Monitor patient's hygiene practices 9. Float heels 10. Collaborate with interdisciplinary team and initiate plans and interventions as needed Outcome: Progressing Note: Evaluation of progress towards goal: Skin integrity maintained. Pt turned every 2 hrs. Legs elevated up on pillow. Weeping & edema of bilateral lower legs with small open area on left renee area. Goal: Patient's nutritional intake is adequate Description: Patient's goal is: INTERVENTIONS 1. Assess and monitor food intake and supplements, patient food preferences, nausea, vomiting, labs, oral cavity (gums, teeth, tongue, mucosa), proper denture fit, and cultural beliefs 2. Monitor for signs of hypoglycemia and hyperglycemia 3. Collaborate with interdisciplinary team and initiate plan and interventions as ordered 4. Monitor patient's weight 5. Assist patient with meals/food selection 6. Assist patient with eating 7. Allow adequate time for meals 8. Provide pleasant environment during mealtime 9. Increase social contact during mealtimes 10. Plan activities to conserve energy 11. Encourage/perform oral hygiene as appropriate 12. Encourage patient to take dietary supplement as ordered 13. Collaborate with clinical hospital ward clerk 14. Include patient/ patient's motor vehicle representative in decisions related to nutrition Outcome: Progressing Note: Evaluation of progress towards goal: Pt taking sips with medications. No diet ordered. Problem: Urinary Incontinence Goal: Perineal skin integrity is maintained or improved Description: INTERVENTIONS 1. Assess genitourinary system, perineal skin, labs (urinalysis), and history of incontinence to include past management, aggravating, and alleviating factors 2. Keep skin clean and dry 3. Apply skin protectant 4. Develop skin care regimen 5. Provide privacy when changing patients incontinence device to maintain their dignity 6. Consider placing an indwelling catheter 7. Collaborate with interdisciplinary team and initiate plans and interventions as needed Outcome: Progressing Note: Evaluation of progress towards goal: Perineal skin integrity maintained with CHG wipes for bathing & dasilva care provided. Problem: Cardiovascular - [place] Goal: Maintains optimal cardiac output and hemodynamic stability Description: INTERVENTIONS: 1. Monitor BP and heart rate. 2. Monitor urine output and notify LIP for values outside of normal range. 3. Assess for signs of decreased cardiac output. 4. Administer fluid and/or volume expanders as ordered. 5. Administer vasoactive medications as ordered. 6. For PPHN infants, administer sedation as ordered and minimize all controllable stressors. Patient's goal is: INTERVENTIONS: 1. Monitor vital signs, rhythm, and trends 2. Monitor for bleeding, hypotension and signs of decreased cardiac output 3. Administer ordered vasoactive medications to optimize hemodynamic stability 4. Monitor arterial and/or venous puncture sites for bleeding and/or hematoma 5. Assess quality of pulses, skin color and temperature Outcome: Progressing Note: Evaluation of progress towards goal:Pt on Levophed drip to keep MAP above 65. Vitals stable with heart rhythm Atrial Fib. Continue to wean Levophed drip. Problem: Cardiovascular - Adult Goal: Maintains optimal cardiac output and hemodynamic stability Description: INTERVENTIONS: 1. Monitor BP and heart rate. 2. Monitor urine output and notify LIP for values outside of normal range. 3. Assess for signs of decreased cardiac output. 4. Administer fluid and/or volume expanders as ordered. 5. Administer vasoactive medications as ordered. 6. For PPHN infants, administer sedation as ordered and minimize all controllable stressors. Patient's goal is: INTERVENTIONS: 1. Monitor vital signs, rhythm, and trends 2. Monitor for bleeding, hypotension and signs of decreased cardiac output 3. Administer ordered vasoactive medications to optimize hemodynamic stability 4. Monitor arterial and/or venous puncture sites for bleeding and/or hematoma 5. Assess quality of pulses, skin color and temperature Outcome: Progressing Note: Evaluation of progress towards goal:Pt on Levophed drip to keep MAP above 65. Vitals stable with heart rhythm Atrial Fib. Continue to wean Levophed drip. documented in this encounter [facility] 10-05-2023 Hospital course Narrative Images from the original note were not included. [facility] Phys[facility]- Hospital Medicine Discharge Summary Patient's Name: Harris Castrejon Date of : 1955 Age: 68 yrs Gender: female PCP: Patient Care Team: Carol Akins PA-C as PCP - General (Physician Parking Ramp Attendant) DATE OF ADMISSION: 09/20/2023 DATE OF DISCHARGE: 10/05/2023 DISCHARGE DIAGNOSES: Active Hospital Problems Diagnosis Date Noted Acute kidney injury ([facility]) 09/20/2023 Resolved Problems No resolved problems to display. CONSULTANTS: Consulting Providers Provider Service Specialty Ronnie Fitzgerald MD Z Nephrology Nephrology Deanna Adams MD Cardiology Clinical Cardiac Electrophysiology [facility] Physician Cardiology -- Cardiology PROCEDURES: No admission procedures for hospital encounter. Things needing follow up: - Hospital Course Harris Castrejonis a 68 y.o.female with past medical history of essential hypertension, paroxysmal AFib s/p ablation 03/20 on Coumadin, type 2 diabetes mellitus on metformin, chronic systolic heart failure (EF 40-45%) CKD and obesity. Patient presented to [place] emergency department on 09/19/2023 with few days history of progressive generalized weakness. In the ER patient was found to be hypotensive and hypothermic. CT of the brain did not show any acute intracranial findings, CT of the cervical spine did not reveal any acute findings. Blood work was significant for metabolic acidosis, acute kidney injury and significantly supratherapeutic INR>16.6. Patient was started on vasopressors, Solu-Cortef, antibiotic, vitamin K and bicarb. She was transferred to [place] ICU for further care. Patient was admitted to medical ICU with circulatory shock and acute renal failure. A Trialysis catheter was placed and patient was initiated on hemodialysis. Vasopressor support was weaned off gradually, she was transitioned to midodrine. She required 2 consecutive sessions of hemodialysis 09/21, 09/22 with improvement in her kidney function. Patient had acute hypoxic respiratory failure in the setting of volume overload that required BiPAP, which also improved with hemodialysis and better volume control. During hospitalization, patient was also treated for acute on chronic systolic heart failure, she had good response to diuretic therapy inpatient. Patient was down by 20 kg (-23 L) prior to discharge. Diuretic plan was reconciled by human resources training manager, patient to follow-up with Nephrology in 1-2 weeks with BNP. Patient had thrombocytopenia (platelets of 62 K on admission) it reach a lucinda of 36 K during hospitalization. hematology was consulted, HIT, TTP, H U/S, and DIC. Etiology of thrombocytopenia was thought to be multifactorial 1. bone marrow suppression in the setting of acute infection and blood-loss, 2. possible underlying chronic ITP. Platelet count spontaneously improved. Platelet reached 150 K prior to discharge. Patient was advised to follow-up with strategic communications specialist in the outpatient setting. While in ICU, patient developed multiple episodes of hematochezia and black stool. Source of bleeding was thought to be hemorrhoidal in the setting of severe thrombocytopenia and supratherapeutic INR. Her hemoglobin remained stable. GI was consulted, they recommended EGD/colonoscopy when INR is less than 1.5. Patient refused procedures and GI signed off. Prior to discharge, patient was trialed on heparin drip for less than 12 hours and she developed 3 episodes of hematochezia. After patient was transferred to the floor, she was evaluated by EP Cardiology for atrial fibrillation with rapid ventricular response. Patient is not a good candidate for digoxin due to kidney dysfunction. Antiarrhythmic medications were also excluded in the setting of GI bleed and intolerance to anticoagulation at this time. Plan is to continue with Lopressor 50 mg b.i.d. and midodrine 10 mg t.i.d. for blood pressure support.on discharge and up titrate therapy as needed outpatient upon follow-up with Cardiology. Regarding anticoagulation, patient will be discharged home off anticoagulation for the next 2 weeks until risks versus benefits of bleeding is re-evaluated by PCP, GI and Cardiology. Cardiology will evaluate patient for Watchman procedure if risk of bleeding remains high. During hospitalization patient also developed gross hematuria, that cleared up spontaneously. Urology were consulted and recommended cystoscopy and retrograde pyelogram for further evaluation in the outpatient setting. Patient was evaluated by Physical therapy Occupational therapy, who recommended discharge to nursing home facility. Patient and family refused and elected to go home with home health. Discharge Medications: Medication List START taking these medications Instructions Last Dose Given Next Dose Due bumetanide 2 mg tablet Commonly known as: BUMEX Take 1 tablet (2 mg total) by mouth 2 (two) times a day before meals for 30 days. folic acid 1 mg tablet Commonly known as: FOLVITE Take 1 tablet (1 mg total) by mouth in the morning for 30 days. metOLazone 2.5 mg tablet Commonly known as: ZAROXOLYN Take 1 tablet (2.5 mg total) by mouth once a week for 28 days. metoprolol tartrate 50 mg tablet Commonly known as: LOPRESSOR Take 1 tablet (50 mg total) by mouth in the morning and 1 tablet (50 mg total) before bedtime. Do all this for 30 days. midodrine 10 mg tablet Commonly known as: PROAMATINE Take 1 tablet (10 mg total) by mouth 3 (three) times a day for 30 days. pantoprazole 40 mg EC tablet Commonly known as: PROTONIX Take 1 tablet (40 mg total) by mouth every morning before breakfast for 30 days. CHANGE how you take these medications Instructions Last Dose Given Next Dose Due potassium chloride 10 MEQ CR tablet Commonly known as: K-TAB,KLOR-CON What changed: when to take this Take 2 tablets (20 mEq total) by mouth in the morning and 2 tablets (20 mEq total) before bedtime. Do all this for 30 days. CONTINUE taking these medications Instructions Last Dose Given Next Dose Due atorvastatin 20 mg tablet Commonly known as: LIPITOR Take 1 tablet (20 mg total) by mouth daily. ferrous sulfate 325 (65 FE) mg tablet Take 1 tablet (325 mg total) by mouth daily with breakfast. STOP taking these medications furosemide 40 mg tablet Commonly known as: LASIX losartan 50 mg tablet Commonly known as: COZAAR metFORMIN 500 mg tablet Commonly known as: GLUCOPHAGE metoprolol succinate XL 100 mg 24 hr tablet Commonly known as: TOPROL XL warfarin 5 mg tablet Commonly known as: COUMADIN Where to Get Your Medications These medications were sent to [facility] [address] [facility] [address] [facility] [address] bumetanide 2 mg tablet folic acid 1 mg tablet metOLazone 2.5 mg tablet metoprolol tartrate 50 mg tablet midodrine 10 mg tablet pantoprazole 40 mg EC tablet potassium chloride 10 MEQ CR tablet For most accurate medication list, please review the discharge medication summary. DISCHARGE EXAM: Vitals: 10/05/23 0303 BP: 99/64 Pulse: 90 Resp: 18 Temp: 36.5 C (97.7 F) SpO2: 94% General appearance: alert, in no acute distress Skin: No rash, no erythema Lungs: Nonlabored respiration, no wheezing Heart: RRR, No ectopy Abdomen: Abdomen soft, non-tender. Extremities: No edema, no swelling or erythema. Neuro: AAOx3, non-focal Labs: Recent Results (from the past 48 hour(s)) Potassium Collection Time: 10/03/23 9:10 AM Result Value Ref Range Potassium, Bld 3.4 (L) 3.5 - 5.0 mmol/L Bedside Glucose *Place/Obtain serum glucose if >500(>600 MRH) per glucometer. Collection Time: 10/03/23 12:00 PM Result Value Ref Range Bedside glucose 138 (H) 65 - 99 mg/dL Bedside Glucose *Place/Obtain serum glucose if >500(>600 MRH) per glucometer. Collection Time: 10/03/23 4:10 PM Result Value Ref Range Bedside glucose 119 (H) 65 - 99 mg/dL Bedside Glucose *Place/Obtain serum glucose if >500(>600 MRH) per glucometer. Collection Time: 10/03/23 9:24 PM Result Value Ref Range Bedside glucose 113 (H) 65 - 99 mg/dL Protime & INR Collection Time: 10/04/23 6:10 AM Result Value Ref Range Protime 18.7 (H) 9.8 - 13.2 sec Inr 1.6 (H) 0.8 - 1.1 CBC auto differential Collection Time: 10/04/23 6:10 AM Result Value Ref Range White Blood Cells 5.9 4.0 - 11.0 X10E9/L RBC count 3.05 (L) 3.80 - 5.20 X10E12/L Hemoglobin 9.5 (L) 11.7 - 15.5 g/dL Hematocrit 28.9 (L) 35 - 47 % MCV 95 80 - 100 fL MCH 31.3 27 - 34 pg MCHC 33.0 32 - 36 g/dL RDW 20.4 (H) 11.5 - 15.0 % Platelets 155 150 - 450 X10E9/L MPV 9.4 7 - 12 fL % neutrophils 73.5 % % lymphocytes 12.7 % % monocytes 10.7 % % eosinophils 2.1 % % Basophils 1.0 % Neutrophils Absolute (A) 4.3 1.5 - 6.6 X10E9/L Lymphocytes Absolute 0.7 (L) 1.0 - 3.5 X10E9/L Monocytes Absolute 0.6 0 - 0.9 X10E9/L Eosinophils Absolute 0.1 0.0 - 0.4 X10E9/L Basophils Absolute 0.1 0.0 - 0.2 X10E9/L Basic Metabolic Panel Collection Time: 10/04/23 6:10 AM Result Value Ref Range Sodium 145 134 - 146 mmol/L Potassium, Bld 3.5 3.5 - 5.0 mmol/L Chloride 91 (L) 98 - 109 mmol/L CO2 38 (H) 22 - 32 mmol/L Anion gap 16 (H) 5 - 15 mmol/L BUN 73 (H) 5 - 27 mg/dL Creatinine 2.18 (H) 0.40 - 1.00 mg/dL Glucose 103 (H) 65 - 99 mg/dL Calcium 8.6 8.5 - 10.5 mg/dL eGFR (CKD-EPI)non-race dependent 24 (L) >59 ml/min/1.73sq.m Magnesium Collection Time: 10/04/23 6:10 AM Result Value Ref Range Magnesium 1.9 1.8 - 2.6 mg/dL Bedside Glucose *Place/Obtain serum glucose if >500(>600 MRH) per glucometer. Collection Time: 10/04/23 8:22 AM Result Value Ref Range Bedside glucose 108 (H) 65 - 99 mg/dL Bedside Glucose *Place/Obtain serum glucose if >500(>600 MRH) per glucometer. Collection Time: 10/04/23 12:21 PM Result Value Ref Range Bedside glucose 127 (H) 65 - 99 mg/dL Bedside Glucose *Place/Obtain serum glucose if >500(>600 MRH) per glucometer. Collection Time: 10/04/23 4:28 PM Result Value Ref Range Bedside glucose 119 (H) 65 - 99 mg/dL Bedside Glucose *Place/Obtain serum glucose if >500(>600 MRH) per glucometer. Collection Time: 10/04/23 10:18 PM Result Value Ref Range Bedside glucose 155 (H) 65 - 99 mg/dL Protime & INR Collection Time: 10/05/23 6:29 AM Result Value Ref Range Protime 18.2 (H) 9.8 - 13.2 sec Inr 1.6 (H) 0.8 - 1.1 CBC auto differential Collection Time: 10/05/23 6:29 AM Result Value Ref Range White Blood Cells 5.4 4.0 - 11.0 X10E9/L RBC count 3.22 (L) 3.80 - 5.20 X10E12/L Hemoglobin 9.9 (L) 11.7 - 15.5 g/dL Hematocrit 31.2 (L) 35 - 47 % MCV 97 80 - 100 fL MCH 30.7 27 - 34 pg MCHC 31.7 (L) 32 - 36 g/dL RDW 19.9 (H) 11.5 - 15.0 % Platelets 150 150 - 450 X10E9/L MPV 9.3 7 - 12 fL % neutrophils 67.9 % % lymphocytes 15.9 % % monocytes 14.0 % % eosinophils 1.5 % % Basophils 0.7 % Neutrophils Absolute (A) 3.7 1.5 - 6.6 X10E9/L Lymphocytes Absolute 0.9 (L) 1.0 - 3.5 X10E9/L Monocytes Absolute 0.8 0 - 0.9 X10E9/L Eosinophils Absolute 0.1 0.0 - 0.4 X10E9/L Basophils Absolute 0.0 0.0 - 0.2 X10E9/L Basic Metabolic Panel Collection Time: 10/05/23 6:29 AM Result Value Ref Range Sodium 148 (H) 134 - 146 mmol/L Potassium, Bld 3.3 (L) 3.5 - 5.0 mmol/L Chloride 91 (L) 98 - 109 mmol/L CO2 41 (H) 22 - 32 mmol/L Anion gap 16 (H) 5 - 15 mmol/L BUN 73 (H) 5 - 27 mg/dL Creatinine 2.31 (H) 0.40 - 1.00 mg/dL Glucose 135 (H) 65 - 99 mg/dL Calcium 9.0 8.5 - 10.5 mg/dL eGFR (CKD-EPI)non-race dependent 23 (L) >59 ml/min/1.73sq.m Magnesium Collection Time: 10/05/23 6:29 AM Result Value Ref Range Magnesium 2.0 1.8 - 2.6 mg/dL Blood gas, venous Collection Time: 10/05/23 6:52 AM Result Value Ref Range Sample Type VENOUS Body Temp 37.0 37.0 C pH, Venous 7.511 (H) 7.320 - 7.420 PCO2, Venous 54.2 (H) 35 - 50 MMHG PO2, Venous 25 (L) 30 - 50 MMHG Base,Excess 17.0 (H) 0.0 - 2.0 MMOL/L Portable HCO3 43.4 (H) 20.0 - 24.0 MMOL/L % O2 Sat 51.0 (L) >80.0 % Ronnie's Test NA SPO2 98 % Sample Site N/A Insp. O2 Conc. 21 % Oxygen Source RoomAir Radiology: No results found. Discharge Instructions Disposition: Discharge to Home with homecare Condition: Good Activity: activity as tolerated Diet: Adult nutrition supplements Adult diet Regular Texture; Consistent Carb 210 grams (1800 kcal); Low Phosphorus (800-1000 mg); Fluid Restriction 1500 mL Adult diet Sonya Correa MD [address] [facility] [id number] Follow up Please follow up with Dr. Correa for evaluation of blood in the urine Carol Akins PA-C [address] [facility] [phone] Schedule an appointment as soon as possible for a visit in 1 week(s) Lilia Cox MD [address] [facility] [phone] Schedule an appointment as soon as possible for a visit in 1 week(s) Rafaela Allen MD [address] [facility] [id number] Schedule an appointment as soon as possible for a visit in 2 week(s) Sarika Sullivan MD [address] [facility] [phone] Follow up in 2 week(s) Soy Talamantes MD [address] [facility], [address] [place] [id number] Schedule an appointment as soon as possible for a visit You can call and make an appointment with the deicer inspector pneumatic if you experience black stool or bloody stool Racquel Langston MD [address], [place] [facility] [phone] Schedule an appointment as soon as possible for a visit in 1 month(s) Information Provided to the Patient: Patient given copy of Discharge Instructions, patient hospital stay was discussed. I have spent 42 minutes coordinating and preparing this discharge. I have discussed the patient's hospitalization course, treatment plan and follow up instructions with patient and at bedside. I have answered all the patient's questions. Electronically signed by: ELVI SCHREIBER MD [facility]ician Hospitalists, Department of Internal Medicine 10/05/23 8:33 AM documented in this encounter [facility] 10-04-2023 Hospital Discharge instructions Elvi Schreiber MD - 10/04/2023 3:26 PM EST Coumadin (warfarin) was discontinued because your INR number was very high when you came in to the hospital, also there was concern of bleeding from the gut. If you have bloody bowel movements or black tarry stool, I recommend that you seek medical attention right away. Check your blood pressure twice a day and log readings. Call your provider if your blood pressure is below 100/60 or above 145/90 Please follow-up with both the general national facilities manager (heart doctor) and EP national facilities manager (log hauler), you have a condition called atrial fibrillation and you are on a medication called Metoprolol to control your heart rate. Upon follow-up with specialists, they will adjust your medications as needed. Discussed with your heart doctor and your primary care doctor the appropriate time to restart blood thinner, if it deemed unsafe to be on blood thinners, discussed with the heart doctor a procedure called Watchman. You will need to follow-up with the kidney doctor in 2 months with blood work called basic metabolic panel (BMP) to monitor your kidney function. If you develop any chest pain, palpitations, or difficulty in breathing, call your provider for advise. The following attachments cannot be sent through Care Everywhere.Bumetanide, ADULT ([place])Folic Acid, ADULT ([place])Metoprolol, ADULT ([place])Midodrine, ADULT ([place])Pantoprazole, ADULT ([place])documented in this encounter [id number] 10-04-2023 Consult note Associated Order (s): IP CONSULT TO ELECTROPHYSIOLOGY Images from the original note were not included. [facility] Physicians Cardiology - Electrophysiology [address] [place] [address] CONSULTATION PATIENT NAME: Harris Castrejon : 1955 AGE: 68 y.o. Date of Admission: 09/20/2023 Date of Consultation: 10/04/2023 Primary Work Force Advisor: Dr. Consuelo Weinberg. Last visit July 2021 SUBJECTIVE REASON FOR CONSULT: AF management assistance CHIEF COMPLAINT: I was feeling really tired and weak HISTORY OF PRESENT ILLNESS: 68-year-old female who initially presented to [facility] with worsening generalized weakness over the past several days. She has a history of diabetes, hypertension, systolic heart failure, atrial flutter with prior ablation February 2021, hypertension, hyperlipidemia. LHC prior to this CTI dependent RFA in 2020: Moderate circumflex IFR 0.93, LAD IFR 0.92 disease, significant RCA. IFR 0.88 Echocardiogram on previous admission EF 40 45%, moderate MR, moderate TR Recent admission early August treated for hyperkalemia/BRANDEE, acute on chronic heart failure and diuresed appropriately. Readmitted 09/20/2023 outlying facility with worsening generalized weakness. She had a fall at home though no reported trauma per testing. INRs were supratherapeutic greater than 16, BNP of 555, creatinine 6.5 to, CO2 15. She was hypothermic and hypotensive warranting aggressive pressor support She did have urgent hemodialysis for 4 days Worsening anemia and platelet. Seen by Hematology concerns for ITP. GI bleed though reports that patient refused to have workup including EGD and colonoscopy. Warfarin has been held since. And attempts to place patient on heparin was Holter due to reports of dark stools. Cardiology had been following regarding rate management of her atrial fibrillation. Greater than 48 hours ago rates 120s to 130s. She had also been placed on midodrine for pressure support. Currently on metoprolol 50 mg b.i.d.. Rates over the past 24+ hours have been stable in the 80s to 90s. She did receive scattered doses of digoxin up until yesterday though due to renal dysfunction, this was discontinued. Continued receive beta-babak as listed. PAST MEDICAL HISTORY Past Medical History: Diagnosis Date Arrhythmia Hypertension Injury of back Disc L4 and L5 Obesity Systolic and diastolic CHF, acute ([facility]) 09/03/2023 Visual impairment SURGICAL HISTORY has a past surgical history that includes Tonsillectomy; Myringotomy w/ tubes; Cardiac catheterization (02/16/2021); Cardiac catheterization (N/A, 02/16/2021); Invasive Cardiology Procedure (N/A, 02/16/2021); Invasive Cardiology Procedure (N/A, 02/16/2021); and Cardiac electrophysiology procedure (N/A, 03/21/2021). SOCIAL HISTORY Social History Socioeconomic History Marital status: Spouse name: Not on file Number of children: Not on file Years of education: Not on file Highest education level: Not on file Occupational History Not on file Tobacco Use Smoking status: Some Days Types: Cigarettes Smokeless tobacco: Never Tobacco comments: 2 cigarettes a day Vaping Use Vaping Use: Never used Substance and Sexual Activity Alcohol use: Never Drug use: Never Sexual activity: Defer Other Topics Concern Coffee Not Asked Tea Not Asked Carbonated Beverages Not Asked Chocolate Not Asked Caffeine Use Yes Social History Narrative Not on file Social Determinants of Health Financial Resource Strain: Not on file Food Insecurity: No Food Insecurity (09/30/2023) Hunger Screening Food Insecurity - Worry: Never True Food Insecurity - Inability: Never True Transportation Needs: No Transportation Needs (09/30/2023) PRAPARE - Transportation Lack of Transportation (Medical): No Lack of Transportation (Non-Medical): No Physical Activity: Not on file Stress: Not on file Social Connections: Not on file Interpersonal Safety: Not At Risk (09/30/2023) Humiliation, Afraid, Rape, and Kick questionnaire Fear of Current or Ex-Partner: No Emotionally Abused: No Physically Abused: No Sexually Abused: No FAMILY HISTORY family history includes Heart attack in her father; No Known Problems in her mother. MEDICATIONS Prior to Admission medications Medication Sig Start Date End Date Taking? Authorizing Provider atorvastatin (LIPITOR) 20 mg tablet Take 1 tablet (20 mg total) by mouth daily. 03/21/21 Yes Lurdes Weinberg MD ferrous sulfate 325 (65 FE) mg tablet Take 1 tablet (325 mg total) by mouth daily with breakfast. 04/25/23 Yes Not In System Ref Prov furosemide (LASIX) 40 mg tablet Take 1 tablet (40 mg total) by mouth daily. 03/21/21 Yes Lurdes Weinberg MD losartan (COZAAR) 50 mg tablet Take 1 tablet (50 mg total) by mouth daily. 08/03/21 Yes Magdi Dailey PA-C metFORMIN (GLUCOPHAGE) 500 mg tablet Take 1 tablet (500 mg total) by mouth 2 (two) times a day with meals. 04/21/21 Yes Lurdes Weinberg MD metoprolol succinate XL (TOPROL XL) 100 mg 24 hr tablet Take 0.5 tablets (50 mg total) by mouth nightly. Yes Not In System Ref Prov metoprolol succinate XL (TOPROL-XL) 100 mg 24 hr tablet Take 100 mg (1 tablet) in AM and 50 mg (1/2 tablet) in PM Patient taking differently: Take 1 tablet (100 mg total) by mouth in the morning. Take 100 mg (1 tablet) in AM . 08/03/21 Yes Magdi Dailey PA-C potassium chloride (K-TAB,KLOR-CON) 10 MEQ CR tablet Take 2 tablets (20 mEq total) by mouth in the morning. Yes Not In System Ref Prov apixaban (ELIQUIS) 5 mg tablet Take 1 tablet (5 mg total) by mouth in the morning and 1 tablet (5 mg total) before bedtime. 10/01/23 Elvi Schreiber MD warfarin (COUMADIN) 5 mg tablet Take 1 tablet (5 mg total) by mouth in the evening. Take .5 tablet (2.5mg) Saturday, Saturday. And Saturday. Take 1tablet (5mg) Saturday, , Saturday, and Saturday.. Patient not taking: Reported on 09/20/2023 09/09/23 Dillon Anton MD ALLERGIES Patient has no known allergies. REVIEW OF SYSTEMS Constitutional: No fevers or chills, no recent weight gain or weight loss or fatigue Eyes: No visual changes or diplopia ENT: No headaches, hearing loss or vertigo Cardiovascular: Per HPI Respiratory: No cough or wheezing, no sputum production, no hematemesis Gastrointestinal: No abdominal pain, no nausea, vomiting, constipation, diarrhea Genitourinary: No dysuria, or hematuria Musculoskeletal: No gait disturbance, weakness or joint complaints Integumentary: No rash or pruritis Neurological: No headache, no prior CVA/TIA Psychiatric: No anxiety, or depression Endocrine: No temperature intolerance Hematologic/Lymphatic: No abnormal bruising or bleeding OBJECTIVE VITAL SIGNS: BP 110/68 Pulse 97 Temp 36.4 C (97.6 F) (Oral) Resp 15 Ht 165.1 cm (5' 5 ) Wt 112.6 kg (248 lb 3.8 oz) SpO2 97% BMI 41.31 kg/m O2 Flow Rate (L/min): 0 L/min ADMIT WEIGHT: 131.8 kg (290 lb 9.1 oz) BMI: Body mass index is 41.31 kg/m . Admission Weight: 131.8 kg (290 lb 9.1 oz) PHYSICAL EXAM General appearance: Awake, alert, cooperative Head: Normocephalic, without obvious abnormality, atraumatic Eyes: Conjunctivae/corneas clear, EOMs intact Neck: no adenopathy, no carotid bruit, no JVD, and thyroid: not enlarged Lungs: diminished breath sounds bilaterally and no rhonchi or crackles , ' symmetric Heart: irregularly irregular rhythm Abdomen: Soft, non-tender, bowel sounds normal, no organomegaly Extremities: +1/2 bilateral lower extremity Skin: Skin color, turgor normal, no rashes or lesions Neurologic: Grossly normal CBC: Results from last 7 days Lab Units 10/04/23 0610 10/03/23 0529 10/02/23 0800 10/01/23 1730 10/01/23 0620 WBC X10E9/L 5.9 -- 6.9 -- 8.4 HEMOGLOBIN g/dL 9.5* 8.0* 8.1* -- 8.0* HEMATOCRIT % 28.9* -- 24.9* -- 24.0* MCV fL 95 -- 96 -- 95 PLATELETS X10E9/L 155 131* 132* < > 135* < > = values in this interval not displayed. BMP: Results from last 7 days Lab Units 10/04/23 0610 10/03/23 0910 10/03/23 0529 10/02/23 0800 10/01/23 0620 09/30/23 1526 09/30/23 0315 SODIUM mmol/L 145 -- 140 141 143 -- 147* POTASSIUM mmol/L 3.5 3.4* 3.2* 3.7 3.9 < > 3.3* CHLORIDE mmol/L 91* -- 91* 93* 97* -- 101 CO2 mmol/L 38* -- 37* 34* 36* -- 34* BUN mg/dL 73* -- 78* 77* 77* -- 83* CREATININE mg/dL 2.18* -- 2.40* 2.42* 2.52* -- 2.72* CALCIUM mg/dL 8.6 -- 8.2* 8.2* 8.4* -- 8.2* PHOSPHORUS mg/dL -- -- -- 2.8 2.9 -- 3.1 MAGNESIUM mg/dL 1.9 -- -- 2.2 2.5 -- 1.9 < > = values in this interval not displayed. PT/INR: Results from last 7 days Lab Units 10/04/23 0610 10/03/23 0529 10/02/23 0800 PROTIME sec 18.7* 20.2* 21.0* INR 1.6* 1.8* 1.8* APTT: MAG: Results from last 7 days Lab Units 10/04/23 0610 10/02/23 0800 10/01/23 0620 MAGNESIUM mg/dL 1.9 2.2 2.5 D Dimer: Troponin I ProBNP Lipid Panel: Lab Results Component Value Date CHOL 127 (L) 09/13/2021 TRIG 159 (H) 09/13/2021 HDL 38 (L) 09/13/2021 CURRENT MEDICATIONS: acetaZOLAMIDE, 500 mg, oral, BID bumetanide, 2 mg, oral, BID AC darbepoetin stefania (ARANESP) injection, 100 mcg, subcutaneous, Weekly folic acid, 1 mg, oral, Daily insulin lispro, 2-10 Units, subcutaneous, With meals and nightly metOLazone, 10 mg, oral, Once [START ON 10/05/2023] metOLazone, 2.5 mg, oral, Weekly metoprolol tartrate, 50 mg, oral, BID midodrine, 10 mg, oral, TID pantoprazole, 40 mg, oral, QAM AC potassium chloride, 40 mEq, oral, BID sennosides-docusate sodium, 2 tablet, oral, Nightly sodium chloride, 10 mL, intravenous, Q96H sodium chloride, 10 mL, intravenous, Q96H sodium chloride, 10 mL, intravenous, Q8H AND sodium citrate, 2 mL, intravenous, Q8H AND sodium chloride, 10 mL, intravenous, PRN AND sodium chloride, 10 mL, intravenous, PRN AND sodium citrate, 2 mL, intravenous, PRN sodium chloride, 3 mL, intravenous, Q12H sodium citrate, 2 mL, intravenous, Q96H sodium citrate, 2 mL, intravenous, Q96H CONTINUOUS INFUSIONS: dextrose 5 % in water, 100 mL/hr sodium chloride 0.9 %, 10 mL/hr, Last Rate: Stopped (09/29/23 0141) sodium chloride 0.9 %, 10 mL/hr, Last Rate: Stopped (09/25/23 0130) sodium chloride 0.9 %, 10 mL/hr, Last Rate: Stopped (10/01/23 1507) sodium chloride 0.9 %, 20 mL/hr, Last Rate: 20 mL/hr (10/03/23 0853) sodium chloride 0.9 %, 250 mL sodium chloride 0.9 %, 250 mL CV HISTORY: ECHO: Echo complete W/ contrast Result Date: 09/04/2023 Left Ventricle: There is mild concentric increased wall thickness/hypertrophy. Systolic function is mildly to moderately decreased with an ejection fraction of 40-45%. Mitral Valve: There is mild to moderate regurgitation with a centrally directed and a posteriorly directed jet. There is no evidence of mitral valve stenosis. Tricuspid Valve: There is moderate regurgitation. The tricuspid valve regurgitation jet is eccentric. There is no evidence of tricuspid valve stenosis. . CARDIAC CATH: January 2021 1. Moderate Cx disease: iFR circumflex 0.93 2. Moderate LAD disease: iFR LAD 0.92 3. Significant RCA disease: (normalized in aorta) iFR RCA 0.88 this was diffuse on pullback all the way from mid vessel to ostium 4. LVEDP 18 mmHg TELEMETRY: Atrial fibrillation with rates 80s to 90s ASSEMMENT Atrial fibrillation with adequate rate control. Earlier on admission RVR episodes. She is tolerating beta-babak currently along with midodrine for hypotension. She did receive non loading digoxin over the past several days. This was discontinued due to current renal function. Atrial fibrillation approximately ongoing for over a year. Patient denies symptoms of atrial fibrillation including palpitations Acute on chronic heart failure EF 40 45% with [id number] MR, moderate TR. Diuresing per Nephrology Acute on chronic renal failure stage 4. Baseline creatinine 1.8. Patient did require dialysis 09/21-. Anemia. Unclear origin. GI service head sign off. Patient refused to have EGD/colonoscopy Hematuria. Pending outpatient follow-up Hypertension. Midodrine scheduled. Nonobstructive CAD [facility] 2020 PLAN EP evaluation for management AFib. Current rates have been adequate 80-90 beats per minute. Patient has not been very ambulatory. Approximate 2 days ago rates 120s 130s. Would allow for lenient rates up to 120 though not sustained. Recommend no changes at this point. Patient should be on blood thinner if tolerable to elevated CHADS2 Vasc score. Managed by other teams. Patient should be seen by Cardiology in close follow-up. Patient had been seen by Dr. Consuelo Weinberg regarding rhythm management past. Been approximately 2 years since at visit. She would coordinate for this as well regarding AF management next available. Reports that patient is wanted to be discharged soon to home home health care. Family is at bedside. They had no questions for me. Will update attending NICOLAS DELGADO [facility] This note was completed using a voice workforce management manager system. Every effort was made to ensure accuracy. However, inadvertent computerized workforce management manager errors may be present. NICOLAS Delgado 10/04/23 2736 [facility] I, SARIKA SULLIVAN MD, personally performed the face to face diagnostic evaluation on this patient. My findings are as follows: . History of Present Illness: 68 y.o. female with past medical history of - nonobstructive coronary artery disease. - chronic systolic congestive heart failure with ejection fraction of 40-45% - hypertension - diabetes - history of atrial flutter status post CTI ablation in 2020 - persistent atrial fibrillation Presented to the hospital with generalized weakness. Found to have supratherapeutic INR of 16. Acute on chronic kidney disease. She required urgent dialysis. Now responding to oral diuretics. She was found to be anemic. Anticoagulation was discontinued. Also found to have thrombocytopenia. Evaluated by Hematology and GI Services. Patient refused EGD and colonoscopy. General Cardiology Service following the patient. Episodes of atrial fibrillation with rapid ventricular rate noted. Patient has been started on metoprolol. Currently on metoprolol 50 mg b.i.d.. Also on midodrine for pressure. Has received few doses of digoxin as well. When I interviewed the patient, she is lying in bed comfortably. She is anxious to go home. General cardiology has been following the patient as well. Review of Systems: Constitutional: No Fevers/Chills, No recent weight gain weight loss, No fatigue. Cardiovascular: Per HPI Respiratory: No cough or wheezing, no sputum production. No hematemesis. Gastrointestinal: No Nausea, Vomiting, Diarrhea, or Constipation. No melena or hematochezia. All others negative except what is noted above and in my CHALINO/resdient/fellow's note. Allergies: No Known Allergies Hospital Meds: Current Facility-Administered Medications Medication Dose Route Frequency Provider Last Rate Last Admin acetaZOLAMIDE (DIAMOX) 12 hr capsule 500 mg 500 mg oral BID Lilia Cox MD bumetanide (BUMEX) tablet 2 mg 2 mg oral BID AC Lilia Cox MD calcium gluconate IVPB 1000 mg/50 mL (20 mg/mL premix) 1,000 mg intravenous PRN NICOLAS Calderón Or calcium gluconate IVPB 2000 mg/100 mL (20 mg/mL premix) 2,000 mg intravenous PRN NICOLAS Calderón Or calcium gluconate 3,000 mg in sodium chloride 0.9 % 100 mL IVPB 3,000 mg intravenous PRN NICOLAS Calderón darbepoetin stefania-polysorbate (ARANESP) injection 100 mcg 100 mcg subcutaneous Weekly Vidhit Miguel, DO 100 mcg at 09/29/23 1407 dextrose (GLUTOSE) 40 % gel 15 g 15 g oral PRN NICOLAS Webb dextrose 5 % (D5W) infusion 100 mL/hr intravenous Continuous PRN NICOLAS Webb dextrose 50 % in water (D50W) 50% solution 25 g 25 g intravenous Once PRN NICOLAS Webb And dextrose 50 % in water (D50W) 50% solution 50 g 50 g intravenous Once PRN NICOLAS Webb dextrose 50 % in water (D50W) 50% solution 25 mL 25 mL intravenous PRN NICOLAS Webb folic acid (FOLVITE) tablet 1 mg 1 mg oral Daily NICOLAS Chavez 1 mg at 10/04/23 1004 glucagon HCL injection 1 mg 1 mg intramuscular PRN NICOLAS Webb insulin lispro (HumaLOG) injection 2-10 Units 2-10 Units subcutaneous With meals and nightly NICOLAS Webb 4 Units at 10/02/23 1501 magnesium sulfate IVPB 2000 mg/50 mL in iso-osmotic water (40 mg/mL premix) 2,000 mg intravenous PRN Shira Bialecki, CARDIAC CATH TECHNICIAN-CLASS A LINEMAN Stopped at 09/30/23 1409 Or magnesium sulfate IVPB 4000 mg/100 mL in iso-osmotic water (40 mg/mL premix) 4,000 mg intravenous PRN Shira Bialecki, CARDIAC CATH TECHNICIAN-CLASS A LINEMAN [START ON 10/05/2023] metOLazone (ZAROXOLYN) tablet 2.5 mg 2.5 mg oral Weekly Lilia Cox MD metoprolol (LOPRESSOR) injection 5 mg 5 mg intravenous Q6H PRN Magdi Dailey PA-C 5 mg at 10/01/23 2315 metoprolol tartrate (LOPRESSOR) tablet 50 mg 50 mg oral BID Samanta Wright MD 50 mg at 10/04/23 1004 midodrine (PROAMATINE) tablet 10 mg 10 mg oral PRN Dede Rivera, DO 10 mg at 09/22/23 0947 midodrine (PROAMATINE) tablet 10 mg 10 mg oral TID Elvi Schreiber MD 10 mg at 10/04/23 1356 pantoprazole (PROTONIX) EC tablet 40 mg 40 mg oral QAM AC KAVYA Rosario 40 mg at 10/04/23 0602 potassium chloride (K-TAB,KLOR-CON) CR tablet 20-50 mEq 20-50 mEq oral PRN Shira Bialecki, CARDIAC CATH TECHNICIAN-CLASS A LINEMAN 30 mEq at 10/03/23 0628 Or potassium chloride (KAYCIEL) 20 mEq/15 mL solution 20-50 mEq 20-50 mEq oral PRN Shira Bialecki, CARDIAC CATH TECHNICIAN-CLASS A LINEMAN potassium chloride (K-TAB,KLOR-CON) CR tablet 40 mEq 40 mEq oral BID Lilia Cox MD potassium chloride IVPB 10 mEq/50 mL in water (0.2 mEq/mL premix) 10 mEq intravenous PRN Shira Bialecki, CARDIAC CATH TECHNICIAN-CLASS A LINEMAN Stopped at 09/30/23 1113 Or potassium chloride IVPB 10 mEq/100 mL in water (0.1 mEq/mL premix) 10 mEq intravenous PRN Shira Bialecki, CARDIAC CATH TECHNICIAN-CLASS A LINEMAN sennosides-docusate sodium (SENOKOT-S) 8.6-50 mg 2 tablet 2 tablet oral Nightly Jaime Susan IV, CARDIAC CATH TECHNICIAN-CLASS A LINEMAN 2 tablet at 09/26/232025 sodium phosphate 20 mmol in sodium chloride 0.9 % 250 mL IVPB 20 mmol intravenous PRN Shira Bialecki, CARDIAC CATH TECHNICIAN-CLASS A LINEMAN Or sodium phosphate 20 mmol in sodium chloride 0.9 % 100 mL IVPB 20 mmol intravenous PRN Shira Bialecki, CARDIAC CATH TECHNICIAN-CLASS A LINEMAN Or sod phos di, mono-K phos mono (K-PHOS NEUTRAL) 250 mg tablet 2 tablet 2 tablet oral PRN Shira Bialecki, CARDIAC CATH TECHNICIAN-CLASS A LINEMAN sodium chloride 0.9 % flush 10 mL 10 mL intravenous Q96H Shiraz Danny, CARDIAC CATH TECHNICIAN-CLASS A LINEMAN 10 mL at 10/03/23 1157 sodium chloride 0.9 % flush 10 mL 10 mL intravenous PRN Shiraz Danny, CARDIAC CATH TECHNICIAN-CLASS A LINEMAN 10 mL at 09/21/23 1153 sodium chloride 0.9 % flush 10 mL 10 mL intravenous PRN Shiraz Danny, CARDIAC CATH TECHNICIAN-CLASS A LINEMAN 10 mL at 09/21/23 1500 sodium chloride 0.9 % flush 10 mL 10 mL intravenous Q96H Shiraz Danny, CARDIAC CATH TECHNICIAN-CLASS A LINEMAN 10 mL at 10/03/23 1157 sodium chloride 0.9 % flush 10 mL 10 mL intravenous PRN Shiraz Danny, CARDIAC CATH TECHNICIAN-CLASS A LINEMAN 10 mL at 09/21/23 1153 sodium chloride 0.9 % flush 10 mL 10 mL intravenous PRN Shiraz Danny, CARDIAC CATH TECHNICIAN-CLASS A LINEMAN 10 mL at 09/21/23 1500 sodium chloride 0.9 % flush 10 mL 10 mL intravenous Q8H Shiraz Danny, CARDIAC CATH TECHNICIAN-CLASS A LINEMAN 10 mL at 10/03/23 1157 And sodium citrate 4 % (3 mL) flush 2 mL 2 mL intravenous Q8H Shiraz Danny, CARDIAC CATH TECHNICIAN-CLASS A LINEMAN And sodium chloride 0.9 % flush 10 mL 10 mL intravenous PRN Shiraz Danny, CARDIAC CATH TECHNICIAN-CLASS A LINEMAN And sodium chloride 0.9 % flush 10 mL 10 mL intravenous PRN Shiraz Danny, CARDIAC CATH TECHNICIAN-CLASS A LINEMAN 10 mL at 09/30/23 1518 And sodium citrate 4 % (3 mL) flush 2 mL 2 mL intravenous PRN Shiraz Danny, CARDIAC CATH TECHNICIAN-CLASS A LINEMAN sodium chloride 0.9 % flush 3 mL 3 mL intravenous Q12H Tanner Harris MD 3 mL at 10/04/23 0835 sodium chloride 0.9 % infusion 10 mL/hr intravenous Continuous PRN Salbador Matteder, CARDIAC CATH TECHNICIAN-CLASS A LINEMAN Stopped at 09/29/23 0141 sodium chloride 0.9 % infusion 10 mL/hr intravenous Continuous PRN Salbador Howell, CARDIAC CATH TECHNICIAN-CLASS A LINEMAN Stopped at 09/25/23 0130 sodium chloride 0.9 % infusion 10 mL/hr intravenous Continuous PRN Salbador Howell, CARDIAC CATH TECHNICIAN-CLASS A LINEMAN Stopped at 10/01/23 1507 sodium chloride 0.9 % infusion 20 mL/hr intravenous Continuous PRN Tanner Harris MD 20 mL/hr at 10/03/23 0853 20 mL/hr at 10/03/23 0853 sodium chloride 0.9 % infusion 250 mL hemodialysis Continuous Vidhit Miguel, DO sodium chloride 0.9 % infusion 250 mL hemodialysis Continuous Vidhit Miguel, DO sodium citrate 4 % (3 mL) flush 2 mL 2 mL intravenous Q96H Shiraz Danny, CARDIAC CATH TECHNICIAN-CLASS A LINEMAN 2 mL at 09/29/23 1425 sodium citrate 4 % (3 mL) flush 2 mL 2 mL intravenous PRN Shiraz Danny, CARDIAC CATH TECHNICIAN-CLASS A LINEMAN 2 mL at 09/22/23 1151 sodium citrate 4 % (3 mL) flush 2 mL 2 mL intravenous Q96H Shiraz Danny, CARDIAC CATH TECHNICIAN-CLASS A LINEMAN 2 mL at 09/29/23 1424 sodium citrate 4 % (3 mL) flush 2 mL 2 mL intravenous PRN Shiraz Danny, CARDIAC CATH TECHNICIAN-CLASS A LINEMAN 2 mL at 09/22/23 1150 Laboratory CBC: Results from last 7 days Lab Units 10/04/23 0610 10/03/23 0529 10/02/23 0800 10/01/23 1730 10/01/23 0620 WBC X10E9/L 5.9 -- 6.9 -- 8.4 HEMOGLOBIN g/dL 9.5* 8.0* 8.1* -- 8.0* HEMATOCRIT % 28.9* -- 24.9* -- 24.0* MCV fL 95 -- 96 -- 95 PLATELETS X10E9/L 155 131* 132* < > 135* < > = values in this interval not displayed. BMP: Results from last 7 days Lab Units 10/04/23 0610 10/03/23 0910 10/03/23 0529 10/02/23 0800 10/01/23 0620 09/30/23 1526 09/30/23 0315 SODIUM mmol/L 145 -- 140 141 143 -- 147* POTASSIUM mmol/L 3.5 3.4* 3.2* 3.7 3.9 < > 3.3* CHLORIDE mmol/L 91* -- 91* 93* 97* -- 101 CO2 mmol/L 38* -- 37* 34* 36* -- 34* BUN mg/dL 73* -- 78* 77* 77* -- 83* CREATININE mg/dL 2.18* -- 2.40* 2.42* 2.52* -- 2.72* CALCIUM mg/dL 8.6 -- 8.2* 8.2* 8.4* -- 8.2* PHOSPHORUS mg/dL -- -- -- 2.8 2.9 -- 3.1 MAGNESIUM mg/dL 1.9 -- -- 2.2 2.5 -- 1.9 < > = values in this interval not displayed. Troponin I Physical Exam Vital Signs: BP 110/68 Pulse 97 Temp 36.4 C (97.6 F) (Oral) Resp 15 Ht 165.1 cm (5' 5 ) Wt 112.6 kg (248 lb 3.8 oz) SpO2 97% BMI 41.31 kg/m O2 Flow Rate (L/min): 0 L/min General appearance: Alert oriented and cooperative, in no acute distress Skin: Warm and dry to touch Head: Normocephalic, without obvious abnormality, atraumatic Eyes: Conjunctivae unremarkable, EOMs intact, sclera non icteric Neck: No JVD, no carotid bruit, neck supple, trachea midline Lungs: Clear to ausculation bilaterally, no use of accessory muscles Heart:: S1-S2 normal, irregular rhythm. Abdomen: Soft, non-tender, bowel sounds normal Extremities: No edema Neurologic: Oriented to time, person and place, affect appropriate, no focal/major motor or sensory defects noted Psychiatric: Appropriate mood, memory and judgment Assessment: 1. Persistent atrial fibrillation. Episodes of rapid ventricular rate present. 2. Acute on chronic systolic and diastolic heart failure. 3. Acute on chronic kidney disease. 4. Anemia. 5. Hematuria and possible GI bleed. 6. Nonobstructive coronary artery disease. 7. Thrombocytopenia. 8. Diabetes. 9. History of hypertension. Has been hypotensive during this admission requiring midodrine. Plan: - patient is not a candidate for rhythm control strategy because the patient is unable tolerate anticoagulation secondary to hematuria/possible GI bleed as well as anemia. Thrombocytopenia was present as well. - only option is to control rhythm with rate control strategy. - when I reviewed the telemetry, ventricular rate is optimally controlled at rest. Would recommend to continue current dose of metoprolol 50 mg b.i.d.. - avoid digoxin secondary to kidney dysfunction. Avoid calcium channel babak secondary to LV dysfunction. - will try to up titrate as needed in outpatient setting for better rate control. - eventually patient will require evaluation for anticoagulation when bleeding issues have resolved. If patient can not tolerate anticoagulation, would recommend consideration of left atrial appendage occlusion in outpatient settings. SARIKA SULLIVAN MD This note was completed using a voice workforce management manager system. Every effort was made to ensure accuracy. However, inadvertent computerized workforce management manager errors may be present. NUTRITION ADULT FOLLOW UP NUTRITION ASSESSMENT: Patient History: Brief Clinical Summary: Per MD notes, past medical history significant for paroxysmal atrial fibrillation on warfarin, type 2 diabetes mellitus on home metformin use, CHF decreased EF of 40-45%, atrial flutter ablation on 03/21/2021, hypertension, and hyperlipidemia. She was recently discharged on 09/05/2023 following treatment for an BRANDEE. She presented to [facility] on 09/19/2023 with complaints of progressively worsening generalized weakness over the last several days. Biochemical Data, Medical Tests, and Procedures: dialysis 09/21 Labs: Results from last 3 days Lab Units 10/01/23 0620 09/30/23 1526 09/30/23 0315 09/29/23 0224 SODIUM mmol/L 143 -- 147* 150* POTASSIUM mmol/L 3.9 4.0 3.3* 3.2* CHLORIDE mmol/L 97* -- 101 105 CO2 mmol/L 36* -- 34* 32 BUN mg/dL 77* -- 83* 87* CREATININE mg/dL 2.52* -- 2.72* 3.03* CALCIUM mg/dL 8.4* -- 8.2* 8.4* ALBUMIN g/dL 3.5 -- 3.6 3.7 ALK PHOS U/L 83 -- 87 76 ALT U/L 11 -- 14 11 AST U/L 18 -- 15 16 Results from last 7 days Lab Units 10/01/23 1207 10/01/23 0837 10/01/23 0620 09/30/23 2142 09/30/23 1530 09/30/23 1222 09/30/23 0809 BEDSIDE GLUCOSE mg/dL 176* 146* -- 205* 146* 220* 173* GLUCOSE mg/dL -- -- 142* -- -- -- -- Results from last 3 days Lab Units 10/01/23 0609/30/2331409/29/23223 WBC X10E9/L 8.4 9.5 9.4 HEMOGLOBIN g/dL 8.0* 7.4* 7.8* HEMATOCRIT % 24.0* 22.3* 24.2* PLATELETS X10E9/L 135* 124* 100* MCV fL 95 95 96 Results from last 3 days Lab Units 10/01/23 0620 09/30/23 1526 09/30/235 09/29/23 0950 09/29/23223 MAGNESIUM mg/dL 2.5 -- 1.9 -- 1.8 IONIZED MAGNESIUM mmol/L -- 0.86* -- 0.59 -- Results from last 3 days Lab Units 10/01/23 0609/30/2331409/29/23223 PHOSPHORUS mg/dL 2.9 3.1 3.7 CALCIUM, IONIZED mg/dL -- -- 4.5 Results from last 3 days Lab Units 10/01/23 0620 09/30/2331409/29/23223 TOTAL BILIRUBIN mg/dL 1.0 0.7 0.9 Lab Results Component Value Date HGBA1C 6.3 (H) 09/29/2023 Lab Results Component Value Date IRON 271 (H) 09/24/2023 TIBC 312 09/24/2023 FERRITIN 150 09/24/2023 Lab Results Component Value Date IRONSAT 87 (H) 09/24/2023 Lab Results Component Value Date CHOL 127 (L) 09/13/2021 Lab Results Component Value Date CHDL 3.3 09/13/2021 Lab Results Component Value Date HDL 38 (L) 09/13/2021 Lab Results Component Value Date LDLCALC 57 09/13/2021 Lab Results Component Value Date TRIG 159 (H) 09/13/2021 Lab Results Component Value Date VERYLOWLIP 32 (H) 09/13/2021 Lab Results Component Value Date [id number] 317 09/24/2023 Lab Results Component Value Date FOLATE 4.2 (L) 09/24/2023 No results found for: VITD25 Comments (labs): low chloride, high CO2, elevated BUN and creatinine with low eGFR Medications/ Parenteral: Bumex, D2.5W at 100 ml/hr, folvite, humalog, protonix, Kcl Current Facility-Administered Medications Medication Dose Route Frequency Provider Last Rate Last Admin bumetanide (BUMEX) injection 2 mg 2 mg intravenous BID AC Vidhit Miguel, DO 2 mg at 10/01/23 0910 calcium gluconate IVPB 1000 mg/50 mL (20 mg/mL premix) 1,000 mg intravenous PRN Shira Restrepo CARDIAC CATH TECHNICIAN-[employer] Or calcium gluconate IVPB 2000 mg/100 mL (20 mg/mL premix) 2,000 mg intravenous PRN Shira Ortizi, CARDIAC CATH TECHNICIAN-CLASS A [employer]EMAN Or calcium gluconate 3,000 mg in sodium chloride 0.9 % 100 mL IVPB 3,000 mg intravenous PRN Shira Restrepo, CARDIAC CATH TECHNICIAN-[employer] darbepoetin stefania-polysorbate (ARANESP) injection 100 mcg 100 mcg subcutaneous Weekly Vidhit Miguel, DO 100 mcg at 09/29/23 1407 dextrose (GLUTOSE) 40 % gel 15 g 15 g oral PRN NICOLAS Webb dextrose 2.5 % in water, 1,000 mL infusion 100 mL/hr intravenous Continuous Vidhit Miguel, DO 100 mL/hr at 10/01/23 0904 100 mL/hr at 10/01/23 0904 dextrose 5 % (D5W) infusion 100 mL/hr intravenous Continuous PRN NICOLAS Webb dextrose 50 % in water (D50W) 50% solution 25 g 25 g intravenous Once PRN NICOLAS Webb And dextrose 50 % in water (D50W) 50% solution 50 g 50 g intravenous Once PRN NICOLAS Webb dextrose 50 % in water (D50W) 50% solution 25 mL 25 mL intravenous PRN NICOLAS Webb folic acid (FOLVITE) tablet 1 mg 1 mg oral Daily Keron StahlNICOLAS 1 mg at 10/01/23 0910 glucagon HCL injection 1 mg 1 mg intramuscular PRN NICOLAS Webb insulin lispro (HumaLOG) injection 2-10 Units 2-10 Units subcutaneous With meals and nightly NICOLAS Webb 2 Units at 10/01/23 1220 magnesium sulfate IVPB 2000 mg/50 mL in iso-osmotic water (40 mg/mL premix) 2,000 mg intravenous PRN NICOLAS Calderón Stopped at 09/30/23 1409 Or magnesium sulfate IVPB 4000 mg/100 mL in iso-osmotic water (40 mg/mL premix) 4,000 mg intravenous PRN NICOLAS Calderón metOLazone (ZAROXOLYN) tablet 10 mg 10 mg oral Daily Lilia Cox MD 10 mg at 10/01/23 0910 metoprolol (LOPRESSOR) injection 5 mg 5 mg intravenous Q6H PRN Magdi Dailey PA-C 5 mg at 09/30/232024 metoprolol tartrate (LOPRESSOR) tablet 50 mg 50 mg oral BID Samanta Wright MD 50 mg at 10/01/23 0910 midodrine (PROAMATINE) tablet 10 mg 10 mg oral PRN Dede Rivera DO 10 mg at 09/22/23 0947 midodrine (PROAMATINE) tablet 15 mg 15 mg oral Q6H Ulisses Silver MD 15 mg at 10/01/23 0909 pantoprazole (PROTONIX) EC tablet 40 mg 40 mg oral QAM AC KAVYA Rosario 40 mg at 10/01/23 0911 potassium chloride (K-TAB,KLOR-CON) CR tablet 20-50 mEq 20-50 mEq oral PRN NICOLAS Calderón Or potassium chloride (KAYCIEL) 20 mEq/15 mL solution 20-50 mEq 20-50 mEq oral PRN Shira Bialecki, CARDIAC CATH TECHNICIAN-[employer] potassium chloride (K-TAB,KLOR-CON) CR tablet 30 mEq 30 mEq oral Q6H Ulisses Silver MD 30 mEq at 10/01/23 0910 potassium chloride IVPB 10 mEq/50 mL in water (0.2 mEq/mL premix) 10 mEq intravenous PRN Shira Bialecki, CARDIAC CATH TECHNICIAN-[employer] Stopped at 09/30/23 1113 Or potassium chloride IVPB 10 mEq/100 mL in water (0.1 mEq/mL premix) 10 mEq intravenous PRN Shira Bialecki, CARDIAC CATH TECHNICIAN-[employer] sennosides-docusate sodium (SENOKOT-S) 8.6-50 mg 2 tablet 2 tablet oral Nightly Jaime Susan IV, CARDIAC CATH TECHNICIAN-CLASS A [employer]EMAN 2 tablet at 09/26/236 sevelamer (RENVELA) tablet 800 mg 800 mg oral TID with meals Vidhit Miguel, DO 800 mg at 10/01/23 0910 sodium phosphate 20 mmol in sodium chloride 0.9 % 250 mL IVPB 20 mmol intravenous PRN Shira Bialecki, CARDIAC CATH TECHNICIAN-[employer] Or sodium phosphate 20 mmol in sodium chloride 0.9 % 100 mL IVPB 20 mmol intravenous PRN Shira Bialecki, CARDIAC CATH TECHNICIAN-[employer] Or sod phos di, mono-K phos mono (K-PHOS NEUTRAL) 250 mg tablet 2 tablet 2 tablet oral PRN Shira Bialecki, CARDIAC CATH TECHNICIAN-[employer] sodium chloride 0.9 % flush 10 mL 10 mL intravenous Q96H Shiraz Danny, CARDIAC CATH TECHNICIAN-[employer] 10 mL at 09/25/23 1212 sodium chloride 0.9 % flush 10 mL 10 mL intravenous PRN Shiraz Danny, CARDIAC CATH TECHNICIAN-[employer] 10 mL at 09/21/23 1153 sodium chloride 0.9 % flush 10 mL 10 mL intravenous PRN Shiraz Danny, CARDIAC CATH TECHNICIAN-[employer] 10 mL at 09/21/23 1500 sodium chloride 0.9 % flush 10 mL 10 mL intravenous Q96H Shiraz Danny, CARDIAC CATH TECHNICIAN-[employer] 10 mL at 09/25/23 1212 sodium chloride 0.9 % flush 10 mL 10 mL intravenous PRN Shiraz Danny, CARDIAC CATH TECHNICIAN-[employer] 10 mL at 09/21/23 1153 sodium chloride 0.9 % flush 10 mL 10 mL intravenous PRN Shiraz Danny, CARDIAC CATH TECHNICIAN-[employer] 10 mL at 09/21/23 1500 sodium chloride 0.9 % flush 10 mL 10 mL intravenous Q8H Shiraz Danny, CARDIAC CATH TECHNICIAN-[employer] 10 mL at 09/30/23 2030 And sodium citrate 4 % (3 mL) flush 2 mL 2 mL intravenous Q8H Shiraz Danny, CARDIAC CATH TECHNICIAN-[employer] And sodium chloride 0.9 % flush 10 mL 10 mL intravenous PRN Shiraz Danny, CARDIAC CATH TECHNICIAN-[employer] And sodium chloride 0.9 % flush 10 mL 10 mL intravenous PRN Shiraz Danny, CARDIAC CATH TECHNICIAN-CLASS [employer]AN 10 mL at 09/30/23 1518 And sodium citrate 4 % (3 mL) flush 2 mL 2 mL intravenous PRN Shiraz Danny, CARDIAC CATH TECHNICIAN-[employer] sodium chloride 0.9 % flush 3 mL 3 mL intravenous Q12H Tanner Harris MD 3 mL at 10/01/23 0911 sodium chloride 0.9 % infusion 10 mL/hr intravenous Continuous PRN Salbador Matteder, CARDIAC CATH TECHNICIAN-[employer] Stopped at 09/29/23 0141 sodium chloride 0.9 % infusion 10 mL/hr intravenous Continuous PRN Salbador Howell, CARDIAC CATH TECHNICIAN-[employer] A [employer] Stopped at 09/25/23 0130 sodium chloride 0.9 % infusion 10 mL/hr intravenous Continuous PRN Salbador Howell, CARDIAC CATH TECHNICIAN-[employer] Stopped at 09/30/23 0521 sodium chloride 0.9 % infusion 20 mL/hr intravenous Continuous PRN Tanner Harris MD Stopped at 09/28/23 1045 sodium chloride 0.9 % infusion 250 mL hemodialysis Continuous Vidhit Miguel, DO sodium chloride 0.9 % infusion 250 mL hemodialysis Continuous Vidhit Miguel, DO sodium citrate 4 % (3 mL) flush 2 mL 2 mL intravenous Q96H Shiraz Danny, CARDIAC CATH TECHNICIAN-[employer] 2 mL at 09/29/23 1425 sodium citrate 4 % (3 mL) flush 2 mL 2 mL intravenous PRN Shiraz Danny, CARDIAC CATH TECHNICIAN-[employer] 2 mL at 09/22/23 1151 sodium citrate 4 % (3 mL) flush 2 mL 2 mL intravenous Q96H Shiraz Danny, CARDIAC CATH TECHNICIAN-[employer] 2 mL at 09/29/23 1424 sodium citrate 4 % (3 mL) flush 2 mL 2 mL intravenous PRN Shiraz Danny, CARDIAC CATH TECHNICIAN-[employer]AN 2 mL at 09/22/23 1150 Nutrition Focused Physical Findings +HD catheter. Per RN flowsheets patient with fair appetite, last BM 09/30. Patient denies nausea and vomiting. Skin (per nursing flow sheets): Skin Color: Pale; [place] (09/30/231899) Skin Temp: Dry; Warm (09/30/231899) Wound (per nursing flow sheets): Gastrointestinal (per nursing flow sheets): Abdomen Assessment: Rounded (09/30/231899) Last BM Date: 09/30/23 (09/30/23 2300) Passing Flatus: Yes (09/30/231899) RUQ Bowel Sounds: Active (09/30/231899) LUQ Bowel Sounds: Active (09/30/231899) RLQ Bowel Sounds: Active (09/30/231899) LLQ Bowel Sounds: Active (09/30/231899) GI Symptoms: None (09/21/23 1518) Edema (per nursing flow sheets): Generalized Edema: +2 (09/30/231899) RLE Edema: +2 (09/30/231899) LLE Edema: +2 (09/30/231899) Intake/ Output Last 24 hrs: Intake/Output Summary (Last 24 hours) at 10/01/2023 1337 Last data filed at 10/01/2023 1056 Gross per 24 hour Intake 848.07 ml Output 4900 ml Net -4051.93 ml Food/Nutrition Related History: Diet/ Nutrition Order Review: Dietary Orders (From admission, onward) Start Ordered 09/26/23 1343 Adult diet Regular Texture; Consistent Carb 210 grams (1800 kcal); Low Phosphorus (800-1000 mg); Fluid Restriction 1500 mL Diet effective now Question Answer Comment Diet Type: Regular Texture Carbohydrate Modifiers: Consistent Carb 210 grams (1800 kcal) Renal Modifiers: Low Phosphorus (800-1000 mg) Fluid Restrictions: Fluid Restriction 1500 mL 09/26/23 1342 09/24/23 1425 Adult nutrition supplements Continuous Question Answer Comment Diet Type or Consistency: Regular Texture Select Supplement: Renal Oral Supplement Supplement Frequency: BID 09/24/23 1424 Diet Intakes: Percent Meals Eaten (%): 0 (09/30/23 1518) patient consuming 0-25% of meals per RN flowsheets patient reports she prefers fruits and crackers the meats and veggies here don't taste good. Oral Supplemental Intake/ Acceptance: Nepro ordered BID Patient reports drinking. Nutrition Knowledge/Beliefs/Attitudes: no questions or concerns at this time. Anthropometrics: Last 3 Weight Readings 09/28/23 0500 09/29/23 0400 09/30/23 0500 Weight: 121 kg (266 lb 12.1 oz) 120.4 kg (265 lb 6.9 oz) 114.8 kg (253 lb 1.4 oz) Admit Weight: 131.8kg (Bed Scale, 09/20/23) [place] Body Weight: 57kg Weight Changes: 17 kg (12%) weight loss this admit, in some part at least fluid related as patient initially on dialysis and now on Bumex Current Body Mass Index: Body mass index is 42.12 kg/m . Comparative Standards: Estimated Energy Needs: 5448-4428 kcals daily. Method and weight used: 28-32 kcal/kg IBW Estimated Protein Needs: 68-86 grams daily. Method and weight used: 1.2-1.5g protein/kg IBW Estimated Fluid Needs: 6221-8367 ml daily. Method weight used: 28-32 ml/kg IBW Comments: acute dialysis needs NUTRITION DIAGNOSIS: Intake Diagnosis: Inadequate oral intake (NI 2.1) Ongoing NUTRITION INTERVENTIONS: Meals & snacks: encourage PO intake of soft foods through small frequent meals and snacks throughout the day. Supplements (medical food, vitamin or mineral): continue Nepro with Carbsteady 2x/day to provide 420 kcal and 19 g protein per serving. Coordination of nutrition care: spoke with RN RECOMMENDATIONS: Please record % meals eaten in RN Flowsheets for ongoing assessment. GOAL(S): meet estimated calorie and protein needs. NUTRITION MONITORING AND EVALUATION: weight and lab trends, PO intake, supplement needs/acceptance, GI function, POC. Candace ROBERTO, RD, LD Clinical Dietitian Associated Order(s): IP CONSULT TO CARDIOLOGY Images from the original note were not included. [facility] [address] [place] [address] HISTORY & PHYSICAL / CONSULT NOTE Harris Castrejon PCP: Carol Akins PA-C Date of Admission: 09/20/2023 Date of Consultation: 09/27/2023 1:59 AM Consult for atrial fibrillation with RVR SUBJECTIVE History of Present Illness: Harris Castrejon is a 68 y.o. female with past medical history of persistent atrial fibrillation currently with RVR on Coumadin, heart failure, atrial flutter s/p ablation in 2020 hypertension, CKD, nonobstructive CAD, chronic systolic heart failure, and [id number] MR presented to the ED on 09/19/2023 with progressively worsening weakness. She is being treated for BRANDEE on CKD as well as acute anemia and thrombocytopenia and Cardiology is being consulted for atrial fibrillation with RVR with hypotension. Patient's hemoglobin continues to drop in his down to 7.4. Has not yet received blood transfusion, platelet count is also down at 36, haptoglobin elevated at 264, but hit panel was negative. 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 Given this her Coumadin has been held. GI stating that bleeding suggestive of hemorrhoidal bleeding and not a candidate for endoscopy given her thrombocytopenia and elevated INR at this time. We saw the patient earlier this month for congestive heart failure exacerbation with newly reduced LV function which was thought to be possibly tachycardia mediated and metoprolol at the time was increased mildly. Patient was following with Dr. Consuelo Weinberg with EP regarding the atrial fibrillation with RVR after atrial flutter ablation and there was discussion about possible antiarrhythmic therapy at that time although it was not initiated as she was in sinus rhythm at follow-up appointment. Patient is not able to answer my questions appropriately. Her mental status has been altered. Previous Medical History: Past Medical History: Diagnosis Date Arrhythmia Hypertension Injury of back Disc L4 and L5 Obesity Systolic and diastolic CHF, acute ([facility]) 09/03/2023 Visual impairment Previous Surgical History: Past Surgical History: Procedure Laterality Date Cardiac catheterization 02/16/2021 Performed by Kelli Su MD at [facility] CARDIAC CATH LABS Caval Tricuspid Isthmus RFA, Carto w/ICE N/A 03/21/2021 Performed by Lurdes Weinberg MD at [facility] HRC (EP) Coronary angiogram and left ventricular gram/pressure N/A 02/16/2021 Performed by Kelli Su MD at [facility] CARDIAC CATH LABS Coronary fractional flow reserve N/A 02/16/2021 Performed by Kelli Su MD at [facility] CARDIAC CATH LABS Intravascular pressure measurement first vessel each additional vessel (fractional flow reserve) N/A 02/16/2021 Performed by Kelli Su MD at [facility] CARDIAC CATH LABS MYRINGOTOMY W/ TUBES TONSILLECTOMY Allergies: No Known Allergies Hospital Meds: Current Facility-Administered Medications Medication Dose Route Frequency Provider Last Rate Last Admin bumetanide (BUMEX) 3 mg in sodium chloride 0.9 % 50 mL IVPB 3 mg intravenous BID Vidhit Miguel, DO Stopped at 09/26/23 0912 calcium gluconate IVPB 1000 mg/50 mL (20 mg/mL premix) 1,000 mg intravenous PRN Salbador Howell APRN-[employer] A [employer] Stopped at 09/26/23 2221 Or calcium gluconate IVPB 2000 mg/100 mL (20 mg/mL premix) 2,000 mg intravenous PRN NICOLAS Webb Or calcium gluconate 3,000 mg in sodium chloride 0.9 % 100 mL IVPB 3,000 mg intravenous PRN Salbador Howell APRN-ALINA cefTRIAXone (ROCEPHIN) 1,000 mg in sodium chloride 0.9 % 50 mL IVPB-MBP 1,000 mg intravenous Q24H NICOLAS [place] Stopped at 09/26/23 0632 darbepoetin stefania-polysorbate (ARANESP) injection 100 mcg 100 mcg subcutaneous Weekly Vidhit Miguel, DO 100 mcg at 09/22/23 1348 dextrose (GLUTOSE) 40 % gel 15 g 15 g oral PRN Salbador Howell APRN-ALINA dextrose 5 % (D5W) infusion 100 mL/hr intravenous Continuous PRN Salbador Howell APRN-ALINA dextrose 50 % in water (D50W) 50% solution 25 g 25 g intravenous Once PRN NICOLAS Webb And dextrose 50 % in water (D50W) 50% solution 50 g 50 g intravenous Once PRN Salbador Howell APRN-ALINA dextrose 50 % in water (D50W) 50% solution 25 mL 25 mL intravenous PRN Salbador Howell APRN-ALINA dilTIAZem (CARDIZEM) 100 mg in sodium chloride 0.9 % 100 mL (1 mg/mL) infusion-AV 5-15 mg/hr intravenous Continuous NICOLAS Baxter folic acid (FOLVITE) tablet 1 mg 1 mg oral Daily [place] NICOLAS Stahl 1 mg at 09/26/23 0817 glucagon HCL injection 1 mg 1 mg intramuscular PRN NICOLAS Webb insulin lispro (HumaLOG) injection 2-10 Units 2-10 Units subcutaneous With meals and nightly NICOLAS Webb 2 Units at 09/26/23 2310 iron sucrose (VENOFER) IVPB 200 mg/100 mL in sodium chloride 0.9% (CMPD premix) 200 mg intravenous Every Other Day Vifaridehit Miguel, DO Stopped at 09/26/23 0834 magnesium sulfate IVPB 2000 mg/50 mL in iso-osmotic water (40 mg/mL premix) 2,000 mg intravenous PRN NICOLAS Webb Or magnesium sulfate IVPB 4000 mg/100 mL in iso-osmotic water (40 mg/mL premix) 4,000 mg intravenous PRN NICOLAS Webb metOLazone (ZAROXOLYN) tablet 10 mg 10 mg oral Daily Lilia Cox MD 10 mg at 09/26/23 0817 metoprolol (LOPRESSOR) injection 5 mg 5 mg intravenous Q6H PRN Samanta Wright MD 5 mg at 09/26/23 2351 metoprolol tartrate (LOPRESSOR) tablet 50 mg 50 mg oral BID Samanta Wright MD 50 mg at 09/26/23 2115 midodrine (PROAMATINE) tablet 10 mg 10 mg oral PRN Vidhit Miguel, DO 10 mg at 09/22/23 0947 midodrine (PROAMATINE) tablet 10 mg 10 mg oral Q6H Ulisses Silver MD 10 mg at 09/27/23 0140 pantoprazole (PROTONIX) EC tablet 40 mg 40 mg oral QAM AC KAVYA Rosario 40 mg at 09/26/23 0818 phenylephrine (EDMOND-SYNEPHRINE) 10 mg/mL injection - Pyxis Override Pull phenylephrine (EDMOND-SYNEPHRINE) 100 mg in sodium chloride 0.9 % 250 mL (0.4 mg/mL) infusion 0.5-2.5 mcg/kg/min intravenous Continuous Danie Reid CARDIAC CATH TECHNICIAN-[employer] A [employer] 9.4 mL/hr at 09/27/23 0016 0.5 mcg/kg/min at 09/27/23 0016 potassium chloride (K-TAB,KLOR-CON) CR tablet 20 mEq 20 mEq oral Q6H Lilia Cox MD 20 mEq at 09/27/23 0140 sennosides-docusate sodium (SENOKOT-S) 8.6-50 mg 2 tablet 2 tablet oral Nightly Samanta Wright MD 2 tablet at 09/26/236 sevelamer (RENVELA) tablet 800 mg 800 mg oral TID with meals Dede Gallegosi, DO 800 mg at 09/26/23 1717 sodium chloride 0.9 % flush 10 mL 10 mL intravenous Q96H Shiraz Danny, CARDIAC CATH TECHNICIAN-[employer] 10 mL at 09/25/23 1212 sodium chloride 0.9 % flush 10 mL 10 mL intravenous PRN Shiraz Danny, CARDIAC CATH TECHNICIAN-CLASS A [employer]AN 10 mL at 09/21/23 1153 sodium chloride 0.9 % flush 10 mL 10 mL intravenous PRN Shiraz Danny, CARDIAC CATH TECHNICIAN-CLASS A LINEMAN 10 mL at 09/21/23 1500 sodium chloride 0.9 % flush 10 mL 10 mL intravenous Q96H Shiraz Danny, CARDIAC CATH TECHNICIAN-[employer] A [employer]AN 10 mL at 09/25/23 1212 sodium chloride 0.9 % flush 10 mL 10 mL intravenous PRN Shiraz Danny, CARDIAC CATH TECHNICIAN-CLASS A [employer]EMAN 10 mL at 09/21/23 1153 sodium chloride 0.9 % flush 10 mL 10 mL intravenous PRN Shiraz Danny, CARDIAC CATH TECHNICIAN-CLASS A [employer]EMAN 10 mL at 09/21/23 1500 sodium chloride 0.9 % flush 10 mL 10 mL intravenous Q8H Shiraz Danny, CARDIAC CATH TECHNICIAN-CLASS A [employer]EMAN 10 mL at 09/26/23 1208 And sodium citrate 4 % (3 mL) flush 2 mL 2 mL intravenous Q8H Shiraz Danny, CARDIAC CATH TECHNICIAN-CLASS A [employer] And sodium chloride 0.9 % flush 10 mL 10 mL intravenous PRN Shiraz Danny, CARDIAC CATH TECHNICIAN-CLASS [employer] And sodium chloride 0.9 % flush 10 mL 10 mL intravenous PRN Shiraz Danny, CARDIAC CATH TECHNICIAN-[employer]EMAN 10 mL at 09/26/23 0305 And sodium citrate 4 % (3 mL) flush 2 mL 2 mL intravenous PRN Shiraz Danny, CARDIAC CATH TECHNICIAN-CLASS [employer]AN sodium chloride 0.9 % flush 3 mL 3 mL intravenous Q12H Tanner Harris MD 3 mL at 09/26/23 2311 sodium chloride 0.9 % infusion 10 mL/hr intravenous Continuous PRN Salbador Howell, CARDIAC CATH TECHNICIAN-[employer] sodium chloride 0.9 % infusion 10 mL/hr intravenous Continuous PRN Salbador Howell, CARDIAC CATH TECHNICIAN-[employer] A [employer]AN Stopped at 09/25/23 0130 sodium chloride 0.9 % infusion 10 mL/hr intravenous Continuous PRN Salbador Howell, CARDIAC CATH TECHNICIAN-CLASS A [employer]EMAN 10 mL/hr at 09/26/23 0635 10 mL/hr at 09/26/23 0635 sodium chloride 0.9 % infusion 20 mL/hr intravenous Continuous PRN Tanner Harris MD sodium chloride 0.9 % infusion 250 mL hemodialysis Continuous Vidhit Miguel, DO sodium chloride 0.9 % infusion 250 mL hemodialysis Continuous Vidhit Miguel, DO sodium citrate 4 % (3 mL) flush 2 mL 2 mL intravenous Q96H Shiraz Danny, CARDIAC CATH TECHNICIAN-CLASS A LINEMAN 2 mL at 09/25/23 1213 sodium citrate 4 % (3 mL) flush 2 mL 2 mL intravenous PRN Shiraz Danny, CARDIAC CATH TECHNICIAN-CLASS [employer]AN 2 mL at 09/22/23 1151 sodium citrate 4 % (3 mL) flush 2 mL 2 mL intravenous Q96H Shiraz Danny, CARDIAC CATH TECHNICIAN-[employer]AN 2 mL at 09/25/23 1213 sodium citrate 4 % (3 mL) flush 2 mL 2 mL intravenous PRN Shiraz Danny, CARDIAC CATH TECHNICIAN-CLASS [employer]EMAN 2 mL at 09/22/23 1150 Home Meds: Prior to Admission medications Medication Sig Start Date End Date Taking? Authorizing Provider atorvastatin (LIPITOR) 20 mg tablet Take 1 tablet (20 mg total) by mouth daily. 03/21/21 Yes Lurdes Weinberg MD ferrous sulfate 325 (65 FE) mg tablet Take 1 tablet (325 mg total) by mouth daily with breakfast. 04/25/23 Yes Not In System Ref Prov furosemide (LASIX) 40 mg tablet Take 1 tablet (40 mg total) by mouth daily. 03/21/21 Yes Lurdes Weinberg MD losartan (COZAAR) 50 mg tablet Take 1 tablet (50 mg total) by mouth daily. 08/03/21 Yes Magdi Dailey PA-C metFORMIN (GLUCOPHAGE) 500 mg tablet Take 1 tablet (500 mg total) by mouth 2 (two) times a day with meals. 04/21/21 Yes Lurdes Weinberg MD metoprolol succinate XL (TOPROL XL) 100 mg 24 hr tablet Take 0.5 tablets (50 mg total) by mouth nightly. Yes Not In System Ref Prov metoprolol succinate XL (TOPROL-XL) 100 mg 24 hr tablet Take 100 mg (1 tablet) in AM and 50 mg (1/2 tablet) in PM Patient taking differently: Take 1 tablet (100 mg total) by mouth in the morning. Take 100 mg (1 tablet) in AM . 08/03/21 Yes Magdi Dailey PA-C potassium chloride (K-TAB,KLOR-CON) 10 MEQ CR tablet Take 2 tablets (20 mEq total) by mouth in the morning. Yes Not In System Ref Prov warfarin (COUMADIN) 5 mg tablet Take 1 tablet (5 mg total) by mouth in the evening. Take .5 tablet (2.5mg) Saturday, Saturday. And Saturday. Take 1tablet (5mg) Saturday, , Saturday, and Saturday.. Patient not taking: Reported on 09/20/2023 09/09/23 Dillon Anton MD Social History: TOBACCO: reports that she has been smoking cigarettes. She has never used smokeless tobacco. ETOH: reports no history of alcohol use. DRUGS: reports no history of drug use. OCCUPATION: Family History: Family History Problem Relation Age of Onset No Known Problems Mother Heart attack Father Review of Systems: Unable to obtain review of systems given patient's mentation. OBJECTIVE LAST LABS: CBC: Results from last 7 days Lab Units 09/26/23 2350 09/26/23 0300 09/25/23 0315 09/24/23 1430 09/24/23 0428 WBC X10E9/L -- 11.3* 10.5 -- 10.1 HEMOGLOBIN g/dL 7.4* 7.7* 7.9* < > 8.4* HEMATOCRIT % 23.0* 23.4* 24.1* < > 25.5* MCV fL -- 93 93 -- 93 PLATELETS X10E9/L -- 36* 37* -- 37* < > = values in this interval not displayed. BMP: Results from last 7 days Lab Units 09/26/23 19209/26/2329909/25/2331409/24/23 0428 SODIUM mmol/L -- 144 142 142 POTASSIUM mmol/L 3.5 3.4* 3.3* 3.5 CHLORIDE mmol/L -- 103 102 103 CO2 mmol/L -- BUN mg/dL -- 78* 68* 62* CREATININE mg/dL -- 3.66* 3.79* 4.11* CALCIUM mg/dL -- 8.1* 8.0* 7.7* PHOSPHORUS mg/dL -- 5.4* 5.7* 5.4* MAGNESIUM mg/dL -- 2.2 2.1 2.1 PT/INR: Results from last 7 days Lab Units 09/26/2329909/25/2331409/24/23427 PROTIME sec 24.3* 20.3* 18.2* INR 2.1* 1.8* 1.6* APTT: MAG: Results from last 7 days Lab Units 09/26/2329909/25/2331409/24/23427 MAGNESIUM mg/dL 2.2 2.1 2.1 D Dimer: Troponin I ProBNP Lipid Panel: Lab Results Component Value Date CHOL 127 (L) 09/13/2021 TRIG 159 (H) 09/13/2021 HDL 38 (L) 09/13/2021 Liver Panel: No results found for: ALB HgA1C: Lab Results Component Value Date HGBA1C 10.1 (H) 02/08/2021 ABG: Lab Results Component Value Date pH 7.392 09/23/2023 PCO2 35.0 09/23/2023 PO2 119 (H) 09/23/2023 Base,Deficit 3.0 (H) 09/23/2023 Portable HCO3 21.3 (L) 09/23/2023 SPO2 100 09/23/2023 CV HISTORY: ECHO: Echo complete W/ contrast Result Date: 09/04/2023 Left Ventricle: There is mild concentric increased wall thickness/hypertrophy. Systolic function is mildly to moderately decreased with an ejection fraction of 40-45%. Mitral Valve: There is mild to moderate regurgitation with a centrally directed and a posteriorly directed jet. There is no evidence of mitral valve stenosis. Tricuspid Valve: There is moderate regurgitation. The tricuspid valve regurgitation jet is eccentric. There is no evidence of tricuspid valve stenosis. STRESS: No results found. HOLTER: No results found. CARDIAC CATH: No results found. CAROTID: No results found. CXR: X-ray chest 1 view Result Date: 09/22/2023 Procedure: Chest x-ray performed Number of views:1 History:Shortness of breath Comparison:09/21/2023 Impression: 1. Tubes and lines are stable. Congestion and effusions are present. These are slightly increased. The cardiac silhouette remains enlarged. There is no pneumothorax. Finalized by Jose Tinoco MD on 09/22/2023 1:32 PM X-ray chest 1 view Result Date: 09/21/2023 HISTORY AND/OR TECH NOTES line placement PROCEDURE AP chest at 10:32 AM COMPARISON September 20 FINDINGS Right central line placement to the mid SVC No visible pneumothorax There is cardiomediastinal prominence with increased perihilar congestion and granular opacity There is increase in confluent opacity in left greater than right lung base Probable small effusions IMPRESSION: Right central line placement mid SVC without visible pneumothorax Worsening congestive change and probable edema and atelectasis left worse than right with trace effusions Suggest follow-up imaging to document clearing and normalization when appropriate ----- Finalized by Charlie Mendoza MD on 09/21/2023 10:45 AM X-ray chest 1 view Result Date: 09/20/2023 Single view chest XR CHEST 1 VW History: weakness Comparison: September 03 Impression: * No consolidation or pleural fluid. No acute findings. Moderate cardiomegaly Finalized by Watson Ceja MD on 09/20/2023 1:42 AM X-ray chest 1 view Result Date: 09/03/2023 XR CHEST 1 VW CLINICAL INFORMATION: Shortness of breath, evaluate for fluid overload. COMPARISON: 02/08/21. IMPRESSION: * Mild vascular congestion with midlung and basilar atelectatic changes. Trace effusions. Mild cardiomegaly. Finalized by Tian Jones MD on 09/03/2023 2:25 PM TELEMETRY: Atrial fibrillation w/ RVR with PVCs PHYSICAL EXAM Admission Weight: Weight: 131.8 kg (290 lb 9.1 oz) I/O last 3 completed shifts: In: 416.9 [P.O.:150; I.V.:97.9; IV Piggyback:169.1] Out: 3595 [Urine:3595] Weight change: Wt Readings from Last 3 Encounters: 09/26/23 124.9 kg (275 lb 5.7 oz) 09/19/23 132 kg (291 lb) 09/05/23 114.3 kg (252 lb) Vitals: Vitals: 09/27/23 0030 09/27/23 0045 09/27/23 0100 09/27/23 0115 BP: (!) 85/58 91/64 92/63 96/66 Pulse: 114 117 121 117 Resp: Temp: TempSrc: SpO2: 98% 98% 99% 99% Weight: Height: Admit Weight Weight: 131.8 kg (290 lb 9.1 oz) Last 3 Weights Last 3 Weight Readings 09/24/23 0500 09/25/23 0500 09/26/23 0500 Weight: 128 kg (282 lb 3 oz) 126.8 kg (279 lb 8.7 oz) 124.9 kg (275 lb 5.7 oz) Body mass index is 45.82 kg/m . INTAKE/OUTPUT I/O last 3 completed shifts: In: 416.9 [P.O.:150; I.V.:97.9; IV Piggyback:169.1] Out: 3595 [Urine:3595] Intake/Output Summary (Last 24 hours) at 09/27/2023 0159 Last data filed at 09/27/2023 0000 Gross per 24 hour Intake 100 ml Output 2810 ml Net -2710 ml General appearance: In no acute distress Neck: No JVD, neck supple, trachea midline Lungs: Clear to ausculation bilaterally, no use of accessory muscles. Heart:: Irregularly irregular with normal S1 and S2 Extremities: ++ bilateral lower extremity edema ASSESSMENT Persistent atrial fibrillation with RVR, anticoagulation currently on hold given acute anemia/thrombocytopenia, was on Coumadin at home History of atrial flutter status post RFA 03/20/2021 Acute on Chronic systolic heart failure with EF of 40-45% per TTE 09/04/2023 Nonobstructive CAD per [facility] Acute hypoxemic respiratory failure secondary to #2 BRANDEE on CKD initiated on hemodialysis 09/21/2023 which was held 09/25/2023 given good response to diuresis Anemia of chronic disease, hemoglobin continues to drop at 7.4 today Thrombocytopenia, hematology following, concern for ITP GI bleed, GI following PLAN Patient with atrial fibrillation with RVR and limited given hypotension, was placed back on phenylephrine today and started on Cardizem gtt with some mildly improved rates down to the 110-120s on 5mL/hr. Limited options given hypotension and kidney function. Will discuss further rate control with attending as given patient's reduced LV function, ideally would not have on Cardizem. Anticoagulation currently on hold anemia/thrombocytopenia. Fluid management per Nephrology. Will continue to follow closely. AMRITA LIRA PA-C This note was completed using a voice workforce management manager system. Every effort was made to ensure accuracy. However, inadvertent computerized workforce management manager errors may be present. Amrita Lira PA-C 09/27/23 0352 [facility] I have personally performed a face to face diagnostic evaluation on this patient. I have reviewed the note authored by the advance practice provider/resident/fellow and agree with the assessment and plan. My findings are as follows. Subjective: 68 year old patient seen and examined by me at the request of the admitting team; medical records reviewed. 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 Heart:: Irregular, rate not controlled, no pericardial friction rub Abdomen: Soft, non-tender, bowel sounds normal Extremities: +2 bilateral leg edema, 2/4 radial pulses B/L Prior notes, records, testing reviewed independently by me, available elsewhere in EMR, pertinent results discussed directly with the patient Assessment/Plan: Other persistent atrial fibrillation with RVR History of atrial flutter status post RFA 03/20/2021 Acute on chronic combined systolic and diastolic heart failure Nonischemic cardiomyopathy with an EF of 40-45% Nonobstructive atherosclerotic heart disease of the [place] coronary arteries without angina pectoris Acute respiratory failure with hypoxia Acute kidney injury on chronic kidney disease initiated on hemodialysis 09/21/2023 Anemia of chronic disease Thrombocytopenia with concern for 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 Every effort was made to ensure accuracy. However, inadvertent computerized workforce management manager errors may be present. Associated Order(s): IP CONSULT TO HEMATOLOGY Images from the original note were not included. [facility] Gurpreet Nagy M.D. Racquel Langston M.D. Sonya Ruelas M.D. Sunni Stack M.D. Tara Funes, CARDIAC CATH TECHNICIAN-CLASS A [employer]EMAN Keron Stahl, CARDIAC CATH TECHNICIAN-[employer] A [employer]AN Tiffanie Segal, CARDIAC CATH TECHNICIAN-[employer] Rufina Dowd, CARDIAC CATH TECHNICIAN-[employer] JUAN Brown M.D. Tc Ridley M.D. Reinaldo Felder M.D. Alfred Adams M.D. Carole Gaviria, [facility] Jenny Unique, [facility] Tian Isra, [facility] Yeny Medrano, CARDIAC [facility]IC[facility] Mendy Rodrigues, CARDIAC CATH TECHNIC[facility] CONSULT NOTE Reason for consult: for thrombocytopenia History of present illness: The patient is a 68 y.o. female with a PMHx of atrial fibrillation, HTN, CKD now on dialysis, CHF, and obesity. She presented to [facility] from [facility] with complaints of generalized weakness. She was recently admitted earlier in August and diagnosed with kidney disease, but was not on dialysis. Upon arrival to [place] [facility], she was found to have an INR of 16.6, a creatinine of 6.52, while being hypotensive requiring pressor support. She was transferred to [facility] for further evaluation and management. During her admission, her thrombocytopenia has worsened, nearly dropping 50% in 4-5 days. Hematology has been consulted for this finding. Currently, patient is resting in bed, and son are at bedside. We discussed the reason for our consult, with her platelet count continuing to be low and worsening. We discussed work up, which will require lab work at this time. We discussed her being on warfarin for many years due to her atrial fibrillation, and how there are concerns that her being off anticoagulation could cause clotting. She was on heparin, however given her continued drop in platelet count, there is a concern for heparin induced thrombocytopenia. We discussed if she has had any active bleeding. The nurse and family report she had a nose bleed early this morning that was thought to be caused by dry air from her BiPaP. Additionally, she's had 2 dark, maroon stools today concerning for bleeding. Family endorses patient having hemorrhoids as a possible source. We discussed needing full evaluation prior to starting any anticoagulation. No questions at this time. Objective Review of Systems Constitutional: Positive for fatigue. Negative for appetite change. HENT: Negative for congestion. Eyes: Negative for pain. Respiratory: Negative for shortness of breath. Cardiovascular: Negative for chest pain. Gastrointestinal: Negative for abdominal pain. Endocrine: Negative for cold intolerance and heat intolerance. Genitourinary: Negative for dysuria. Musculoskeletal: Negative for back pain. Skin: Negative for rash. Neurological: Positive for weakness. Negative for light-headedness. Hematological: Does not bruise/bleed easily. Psychiatric/Behavioral: The patient is not nervous/anxious. Physical Exam: Vitals: BP 117/85 Pulse 114 Temp 36.9 C (98.4 F) (Oral) Resp 20 Ht 165.1 cm (5' 5 ) Wt 128 kg (282 lb 3 oz) SpO2 95% BMI 46.96 kg/m Body mass index is 46.96 kg/m . Physical Exam Vitals and nursing note reviewed. Constitutional: General: She is not in acute distress. Appearance: Normal appearance. She is ill-appearing. HENT: Head: Normocephalic and atraumatic. Right Ear: External ear normal. Left Ear: External ear normal. Nose: Nose normal. Mouth/Throat: Mouth: Mucous membranes are moist. Eyes: Conjunctiva/sclera: Conjunctivae normal. Pupils: Pupils are equal, round, and reactive to light. Cardiovascular: Rate and Rhythm: Normal rate and regular rhythm. Pulses: Normal pulses. Heart sounds: Normal heart sounds. No murmur heard. No friction rub. No gallop. Pulmonary: Effort: Pulmonary effort is normal. Breath sounds: Normal breath sounds. Abdominal: General: Abdomen is flat. There is no distension. Palpations: There is no mass. Musculoskeletal: General: Normal range of motion. Cervical back: Normal range of motion and neck supple. Right lower leg: No edema. Left lower leg: No edema. Skin: General: Skin is warm and dry. Coloration: Skin is not jaundiced. Findings: No bruising or rash. Neurological: General: No focal deficit present. Mental Status: She is alert and oriented to person, place, and time. Cranial Nerves: No cranial nerve deficit. Sensory: No sensory deficit. Psychiatric: Mood and Affect: Mood normal. Behavior: Behavior normal. Thought Content: Thought content normal. Judgment: Judgment normal. ECO- Symptomatic; in bed <50% of the day Past Medical History: Diagnosis Date Arrhythmia Hypertension Injury of back Disc L4 and L5 Obesity Systolic and diastolic CHF, acute (CMS-HCC) 09/03/2023 Visual impairment Past Surgical History: Procedure Laterality Date Cardiac catheterization 02/16/2021 Performed by Kelli Su MD at [facility] CARDIAC CATH LABS Caval Tricuspid Isthmus RFA, Carto w/ICE N/A 03/21/2021 Performed by Lurdes Weinberg MD at [facility] 234 BEDS AT [facility] (EP) Coronary angiogram and left ventricular gram/pressure N/A 02/16/2021 Performed by eKlli Su MD at [facility] CARDIAC CATH LABS Coronary fractional flow reserve N/A 02/16/2021 Performed by Kelli Su MD at [facility] CARDIAC CATH LABS Intravascular pressure measurement first vessel each additional vessel (fractional flow reserve) N/A 02/16/2021 Performed by Kelli Su MD at [facility] CARDIAC CATH LABS MYRINGOTOMY W/ TUBES TONSILLECTOMY Family History Problem Relation Age of Onset No Known Problems Mother Heart attack Father Social History Socioeconomic History Marital status: Spouse name: Not on file Number of children: Not on file Years of education: Not on file Highest education level: Not on file Occupational History Not on file Tobacco Use Smoking status: Some Days Types: Cigarettes Smokeless tobacco: Never Tobacco comments: 2 cigarettes a day Vaping Use Vaping Use: Never used Substance and Sexual Activity Alcohol use: Never Drug use: Never Sexual activity: Defer Other Topics Concern Coffee Not Asked Tea Not Asked Carbonated Beverages Not Asked Chocolate Not Asked Caffeine Use Yes Social History Narrative Not on file Social Determinants of Health Financial Resource Strain: Not on file Food Insecurity: No Food Insecurity (09/20/2023) Hunger Screening Food Insecurity - Worry: Never True Food Insecurity - Inability: Never True Transportation Needs: Not on file Physical Activity: Not on file Stress: Not on file Social Connections: Not on file Interpersonal Safety: Not on file No Known Allergies Inpatient scheduled medication: albumin human, , , bumetanide, 3 mg, intravenous, BID cefTRIAXone (ROCEPHIN) IV, 1,000 mg, intravenous, Q24H darbepoetin stefania (ARANESP) injection, 100 mcg, subcutaneous, Weekly famotidine, 20 mg, oral, Q48H hydrocortisone sodium succinate, 50 mg, intravenous, Q12H PAUL insulin lispro, 2-10 Units, subcutaneous, With meals and nightly iron sucrose, 200 mg, intravenous, Every Other Day metOLazone, 10 mg, oral, Daily metoprolol tartrate, 50 mg, oral, BID midodrine, 10 mg, oral, TID potassium chloride, 20 mEq, oral, BID with meals sevelamer, 800 mg, oral, TID with meals sodium chloride, 10 mL, intravenous, Q96H sodium chloride, 10 mL, intravenous, Q96H sodium chloride, 10 mL, intravenous, Q8H AND sodium citrate, 2 mL, intravenous, Q8H AND sodium chloride, 10 mL, intravenous, PRN AND sodium chloride, 10 mL, intravenous, PRN AND sodium citrate, 2 mL, intravenous, PRN sodium chloride, 3 mL, intravenous, Q12H sodium citrate, 2 mL, intravenous, Q96H sodium citrate, 2 mL, intravenous, Q96H sodium zirconium cyclosilicate, 10 g, oral, Daily with lunch Recent Labs Recent Results (from the past 72 hour(s)) Electrolyte panel Collection Time: 09/21/23 3:27 PM Result Value Ref Range Sodium 138 134 - 146 mmol/L Potassium, Bld 4.4 3.5 - 5.0 mmol/L Chloride 98 98 - 109 mmol/L CO2 19 (L) 22 - 32 mmol/L Anion gap 21 (H) 5 - 15 mmol/L Hepatitis B Surface Antibody Quantitation Collection Time: 09/21/23 3:27 PM Result Value Ref Range Anti HBs quantitative <8.00 mIU/mL Electrolyte panel Collection Time: 09/21/23 8:12 PM Result Value Ref Range Sodium 137 134 - 146 mmol/L Potassium, Bld 4.3 3.5 - 5.0 mmol/L Chloride 100 98 - 109 mmol/L CO2 19 (L) 22 - 32 mmol/L Anion gap 18 (H) 5 - 15 mmol/L Bedside Glucose *Place/Obtain serum glucose if >500(>600 MRH) per glucometer. Collection Time: 09/21/23 9:19 PM Result Value Ref Range Bedside glucose 138 (H) 65 - 99 mg/dL Electrolyte panel Collection Time: 09/22/23 2:08 AM Result Value Ref Range Sodium 140 134 - 146 mmol/L Potassium, Bld 4.4 3.5 - 5.0 mmol/L Chloride 102 98 - 109 mmol/L CO2 18 (L) 22 - 32 mmol/L Anion gap 20 (H) 5 - 15 mmol/L Basic Metabolic Panel Collection Time: 09/22/23 4:48 AM Result Value Ref Range Sodium 141 134 - 146 mmol/L Potassium, Bld 4.4 3.5 - 5.0 mmol/L Chloride 102 98 - 109 mmol/L CO2 20 (L) 22 - 32 mmol/L Anion gap 19 (H) 5 - 15 mmol/L BUN 83 (H) 5 - 27 mg/dL Creatinine 5.70 (H) 0.40 - 1.00 mg/dL Glucose 133 (H) 65 - 99 mg/dL Calcium 7.0 (L) 8.5 - 10.5 mg/dL eGFR (CKD-EPI)non-race dependent 8 (L) >59 ml/min/1.73sq.m Magnesium Collection Time: 09/22/23 4:48 AM Result Value Ref Range Magnesium 2.4 1.8 - 2.6 mg/dL Phosphorus Collection Time: 09/22/23 4:48 AM Result Value Ref Range Phosphorus 8.6 (H) 2.4 - 4.9 mg/dL CBC without diff Collection Time: 09/22/23 4:48 AM Result Value Ref Range White Blood Cells 8.3 4.0 - 11.0 X10E9/L RBC count 2.77 (L) 3.80 - 5.20 X10E12/L Hemoglobin 8.5 (L) 11.7 - 15.5 g/dL Hematocrit 25.6 (L) 35 - 47 % MCV 93 80 - 100 fL MCH 30.6 27 - 34 pg MCHC 33.0 32 - 36 g/dL RDW 19.8 (H) 11.5 - 15.0 % Platelets 45 (L) 150 - 450 X10E9/L MPV 10.3 7 - 12 fL Protime & INR Collection Time: 09/22/23 4:48 AM Result Value Ref Range Protime 16.5 (H) 9.8 - 13.2 sec Inr 1.4 (H) 0.8 - 1.1 ABO Rh Repeat Collection Time: 09/22/23 5:00 AM Result Value Ref Range ABO O RH Positive Ionized calcium Collection Time: 09/22/23 7:20 AM Result Value Ref Range Calcium, ionized 3.9 (L) 4.5 - 5.3 mg/dL Bedside Glucose *Place/Obtain serum glucose if >500(>600 MRH) per glucometer. Collection Time: 09/22/23 7:38 AM Result Value Ref Range Bedside glucose 139 (H) 65 - 99 mg/dL POCT Arterial ICODE Collection Time: 09/22/23 12:35 PM Result Value Ref Range Portable sodium 137 134 - 146 mmol/L Portable potassium 3.7 3.5 - 5.0 mmol/L Portable glucose 110 (H) 65 - 99 mg/dL Portable hematocrit 28 (L) 35 - 47 % Ionized Calcium 4.1 (L) 4.5 - 5.3 mg/dL Sample Type ARTERIAL Body Temp 37.0 37.0 C pH 7.497 (H) 7.350 - 7.450 PCO2 26.8 (L) 35 - 45 MMHG PO2 68 (L) 80 - 100 MMHG Base,Deficit 2.0 0.0 - 2.0 MMOL/L Portable HCO3 20.7 (L) 22 - 26 MMOL/L % O2 Sat 95.0 >90 % Ronnie's Test Pass SPO2 88 % Sample Site LRad Insp. O2 Conc. 40 % Oxygen Source NC Bedside Glucose *Place/Obtain serum glucose if >500(>600 MRH) per glucometer. Collection Time: 09/22/23 1:45 PM Result Value Ref Range Bedside glucose 113 (H) 65 - 99 mg/dL Bedside Glucose *Place/Obtain serum glucose if >500(>600 MRH) per glucometer. Collection Time: 09/22/23 5:00 PM Result Value Ref Range Bedside glucose 86 65 - 99 mg/dL Bedside Glucose *Place/Obtain serum glucose if >500(>600 MRH) per glucometer. Collection Time: 09/22/23 9:17 PM Result Value Ref Range Bedside glucose 89 65 - 99 mg/dL Protime & INR Collection Time: 09/23/23 2:12 AM Result Value Ref Range Protime 16.4 (H) 9.8 - 13.2 sec Inr 1.4 (H) 0.8 - 1.1 CBC auto differential Collection Time: 09/23/23 2:12 AM Result Value Ref Range White Blood Cells 8.5 4.0 - 11.0 X10E9/L RBC count 2.67 (L) 3.80 - 5.20 X10E12/L Hemoglobin 8.2 (L) 11.7 - 15.5 g/dL Hematocrit 24.9 (L) 35 - 47 % MCV 93 80 - 100 fL MCH 30.6 27 - 34 pg MCHC 32.8 32 - 36 g/dL RDW 19.2 (H) 11.5 - 15.0 % Platelets 38 (L) 150 - 450 X10E9/L MPV 9.6 7 - 12 fL % neutrophils 85.9 % % lymphocytes 6.7 % % monocytes 7.2 % % eosinophils 0.1 % % Basophils 0.1 % Neutrophils Absolute (A) 7.3 (H) 1.5 - 6.6 X10E9/L Lymphocytes Absolute 0.6 (L) 1.0 - 3.5 X10E9/L Monocytes Absolute 0.6 0 - 0.9 X10E9/L Eosinophils Absolute 0.0 0.0 - 0.4 X10E9/L Basophils Absolute 0.0 0.0 - 0.2 X10E9/L Comprehensive metabolic panel Collection Time: 09/23/23 2:12 AM Result Value Ref Range Sodium 138 134 - 146 mmol/L Potassium, Bld 3.9 3.5 - 5.0 mmol/L Chloride 101 98 - 109 mmol/L CO2 24 22 - 32 mmol/L Anion gap 13 5 - 15 mmol/L BUN 54 (H) 5 - 27 mg/dL Creatinine 4.16 (H) 0.40 - 1.00 mg/dL Glucose 123 (H) 65 - 99 mg/dL Calcium 7.7 (L) 8.5 - 10.5 mg/dL Total Protein 6.0 6.0 - 8.0 g/dL Albumin 3.7 3.2 - 5.3 g/dL Alkaline Phosphatase 87 39 - 130 U/L AST 30 0 - 41 U/L ALT 16 0 - 31 U/L Total bilirubin 0.8 0.3 - 1.2 mg/dL eGFR (CKD-EPI)non-race dependent 11 (L) >59 ml/min/1.73sq.m Magnesium Collection Time: 09/23/23 2:12 AM Result Value Ref Range Magnesium 2.2 1.8 - 2.6 mg/dL Phosphorus Collection Time: 09/23/23 2:12 AM Result Value Ref Range Phosphorus 5.5 (H) 2.4 - 4.9 mg/dL Blood Gas, Arterial Collection Time: 09/23/23 5:35 AM Result Value Ref Range Sample Type ARTERIAL Body Temp 37.0 37.0 C pH 7.392 7.350 - 7.450 PCO2 35.0 35 - 45 MMHG PO2 119 (H) 80 - 100 MMHG Base,Deficit 3.0 (H) 0.0 - 2.0 MMOL/L Portable HCO3 21.3 (L) 22 - 26 MMOL/L % O2 Sat 99.0 >90 % Ronnie's Test Pass SPO2 100 % Sample Site LRad Insp. O2 Conc. 40 % Oxygen Source NPPV Bedside Glucose *Place/Obtain serum glucose if >500(>600 MRH) per glucometer. Collection Time: 09/23/23 7:58 AM Result Value Ref Range Bedside glucose 129 (H) 65 - 99 mg/dL Bedside Glucose *Place/Obtain serum glucose if >500(>600 MRH) per glucometer. Collection Time: 09/23/23 11:55 AM Result Value Ref Range Bedside glucose 112 (H) 65 - 99 mg/dL Bedside Glucose *Place/Obtain serum glucose if >500(>600 MRH) per glucometer. Collection Time: 09/23/23 3:47 PM Result Value Ref Range Bedside glucose 145 (H) 65 - 99 mg/dL Anti XA unfractionated heparin Collection Time: 09/23/23 3:50 PM Result Value Ref Range Heparin anti-xa, unfractionated 0.50 0.30 - 0.70 IU/mL Anti XA unfractionated heparin Collection Time: 09/23/23 9:42 PM Result Value Ref Range Heparin anti-xa, unfractionated 0.67 0.30 - 0.70 IU/mL Bedside Glucose *Place/Obtain serum glucose if >500(>600 MRH) per glucometer. Collection Time: 09/23/23 9:42 PM Result Value Ref Range Bedside glucose 115 (H) 65 - 99 mg/dL Protime & INR Collection Time: 09/24/23 4:28 AM Result Value Ref Range Protime 18.2 (H) 9.8 - 13.2 sec Inr 1.6 (H) 0.8 - 1.1 CBC auto differential Collection Time: 09/24/23 4:28 AM Result Value Ref Range White Blood Cells 10.1 4.0 - 11.0 X10E9/L RBC count 2.75 (L) 3.80 - 5.20 X10E12/L Hemoglobin 8.4 (L) 11.7 - 15.5 g/dL Hematocrit 25.5 (L) 35 - 47 % MCV 93 80 - 100 fL MCH 30.6 27 - 34 pg MCHC 33.0 32 - 36 g/dL RDW 19.4 (H) 11.5 - 15.0 % Platelets 37 (L) 150 - 450 X10E9/L MPV 9.9 7 - 12 fL % neutrophils 86.3 % % lymphocytes 5.6 % % monocytes 7.9 % % eosinophils 0.1 % % Basophils 0.1 % Neutrophils Absolute (A) 8.7 (H) 1.5 - 6.6 X10E9/L Lymphocytes Absolute 0.6 (L) 1.0 - 3.5 X10E9/L Monocytes Absolute 0.8 0 - 0.9 X10E9/L Eosinophils Absolute 0.0 0.0 - 0.4 X10E9/L Basophils Absolute 0.0 0.0 - 0.2 X10E9/L Comprehensive metabolic panel Collection Time: 09/24/23 4:28 AM Result Value Ref Range Sodium 142 134 - 146 mmol/L Potassium, Bld 3.5 3.5 - 5.0 mmol/L Chloride 103 98 - 109 mmol/L CO2 22 22 - 32 mmol/L Anion gap 17 (H) 5 - 15 mmol/L BUN 62 (H) 5 - 27 mg/dL Creatinine 4.11 (H) 0.40 - 1.00 mg/dL Glucose 113 (H) 65 - 99 mg/dL Calcium 7.7 (L) 8.5 - 10.5 mg/dL Total Protein 6.0 6.0 - 8.0 g/dL Albumin 3.4 3.2 - 5.3 g/dL Alkaline Phosphatase 85 39 - 130 U/L AST 23 0 - 41 U/L ALT 13 0 - 31 U/L Total bilirubin 0.9 0.3 - 1.2 mg/dL eGFR (CKD-EPI)non-race dependent 11 (L) >59 ml/min/1.73sq.m Magnesium Collection Time: 09/24/23 4:28 AM Result Value Ref Range Magnesium 2.1 1.8 - 2.6 mg/dL Phosphorus Collection Time: 09/24/23 4:28 AM Result Value Ref Range Phosphorus 5.4 (H) 2.4 - 4.9 mg/dL Haptoglobin Collection Time: 09/24/23 4:28 AM Result Value Ref Range Haptoglobin 264 (H) 32 - 228 mg/dL Fibrin split products Collection Time: 09/24/23 4:28 AM Result Value Ref Range Fibrin split product 5-20 H (AA) <5 ug/mL Fibrinogen Collection Time: 09/24/23 4:28 AM Result Value Ref Range Fibrinogen 324 190 - 480 mg/dL Anti XA unfractionated heparin Collection Time: 09/24/23 4:28 AM Result Value Ref Range Heparin anti-xa, unfractionated 0.64 0.30 - 0.70 IU/mL Bedside Glucose *Place/Obtain serum glucose if >500(>600 MRH) per glucometer. Collection Time: 09/24/23 7:54 AM Result Value Ref Range Bedside glucose 135 (H) 65 - 99 mg/dL Recent Imaging: X-ray chest 1 view Result Date: 09/22/2023 Narrative: Procedure: Chest x-ray performed Number of views:1 History:Shortness of breath Comparison:09/21/2023 Impression: 1. Tubes and lines are stable. Congestion and effusions are present. These are slightly increased. The cardiac silhouette remains enlarged. There is no pneumothorax. Finalized by Jose Tinoco MD on 09/22/2023 1:32 PM X-ray chest 1 view Result Date: 09/21/2023 Narrative: HISTORY AND/OR TECH NOTES line placement PROCEDURE AP chest at 10:32 AM COMPARISON September 20 FINDINGS Right central line placement to the mid SVC No visible pneumothorax There is cardiomediastinal prominence with increased perihilar congestion and granular opacity There is increase in confluent opacity in left greater than right lung base Probable small effusions IMPRESSION: Right central line placement mid SVC without visible pneumothorax Worsening congestive change and probable edema and atelectasis left worse than right with trace effusions Suggest follow-up imaging to document clearing and normalization when appropriate ----- Finalized by Charlie Mendoza MD on 09/21/2023 10:45 AM Ultrasound retroperitoneal complete Result Date: 09/20/2023 Narrative: History: Acute kidney injury Exam/Technique: Ultrasound of the kidneys and urinary bladder Comparison: Previous ultrasound of 09/04/2023 Findings: There is no collecting system dilatation in either kidney. No focal renal lesions are displayed on either side. The right kidney measures 12.3 centimeters in length , and the left kidney 11.4 centimeters . The urinary bladder is collapsed around a Dasilva catheter balloon. A small amount of free intraperitoneal fluid is identified in the pelvis IMPRESSION: No evidence of hydronephrosis or other acute renal abnormalities demonstrated. Small amount of ascites. Finalized by Magdi Lyn MD on 09/20/2023 5:50 PM X-ray chest 1 view Result Date: 09/20/2023 Narrative: Single view chest XR CHEST 1 VW History: weakness Comparison: September 03 Impression: * No consolidation or pleural fluid. No acute findings. Moderate cardiomegaly Finalized by Watson Ceja MD on 09/20/2023 1:[address] cervical spine without contrast Result Date: 09/20/2023 Narrative: Procedure: CT CERVICAL SPINE WO CONT History: Neck trauma (Age >= 65y) Multi-detector CT performed through the cervical spine in the axial plane with multiplanar reconstructions.Automated exposure control was utilized. Findings: There is no prevertebral soft tissue swelling. Diffuse disc disease and facet arthritis There is no fracture, malalignment or destructive lesion. IMPRESSION: 1. No acute findings. Consider MRI cervical spine and possibly cervical spine flexion-extension radiographs if you suspect occult soft tissue injury and/or ligamentous injury. All CT scans at this facility use dose modulation, iterative reconstruction, and/or weight based dosing when appropriate to reduce radiation dose to as low as reasonably achievable. Finalized by Watson Ceja MD on 09/20/2023 1:[address] brain without contrast Result Date: 09/20/2023 Narrative: STUDY: CT HEAD WITHOUT CONTRAST CLINICAL HISTORY: Head trauma, moderate-severe Weakness COMPARISON: None Procedure: Multi-detector CT performed through the brain without IV contrast. The lack of IV contrast limits evaluation for acute infarct, mass, infectious process,or demyelinating disease.Automated exposure control was utilized. Findings: There is no intracranial hemorrhage, extra-axial fluid collection, mass effect, or hydrocephalus. Medrano-white matter differentiation is appropriate. Infarcts and masses may be occult on CT, but grossly no acute infarct identified There is no midline shift. IMPRESSION: * No acute intracranial findings. Consider brain MRI if you suspect occult process. All CT scans at this facility use dose modulation, iterative reconstruction, and/or weight based dosing when appropriate to reduce radiation dose to as low as reasonably achievable. Finalized by Watson Ceja MD on 09/20/2023 1:40 AM Ultrasound retroperitoneal complete Result Date: 09/04/2023 Narrative: HISTORY: A 68-year-old female with the history of the acute kidney injury. TECHNIQUE: Multiple real-time images of both kidneys and the urinary bladder are obtained. Color Doppler study is performed COMPARISON: No relevant prior studies are available for comparison. FINDINGS: Examination is compromised due to patient's body habitus and overlying bowel gas shadows. Right kidney measures 10.8 x 5.7 x 5.4 cm. Left kidney measured 10.9 x 4.8 x 6.2 cm. There is no evidence of echogenic calculi or hydronephrosis. Renal cortical echoes are within normal limits. No cystic or solid renal mass is identified. Urinary bladder is not visualized and patient voided before examination. Incidental note is made of for sciatic fluid adjacent to the right lobe the liver. IMPRESSION: * No evidence of echogenic calculi or hydronephrosis. * No evidence of renal mass. * Urinary bladder is not distended. * Ascites fluid adjacent to the right lobe of the liver. Finalized by Edvin Weinberg MD on 09/04/2023 3:48 PM Echo complete W/ contrast Result Date: 09/04/2023 Narrative: Left Ventricle: There is mild concentric increased wall thickness/hypertrophy. Systolic function is mildly to moderately decreased with an ejection fraction of 40-45%. Mitral Valve: There is mild to moderate regurgitation with a centrally directed and a posteriorly directed jet. There is no evidence of mitral valve stenosis. Tricuspid Valve: There is moderate regurgitation. The tricuspid valve regurgitation jet is eccentric. There is no evidence of tricuspid valve stenosis. X-ray chest 1 view Result Date: 09/03/2023 Narrative: XR CHEST 1 VW CLINICAL INFORMATION: Shortness of breath, evaluate for fluid overload. COMPARISON: 02/08/21. IMPRESSION: * Mild vascular congestion with midlung and basilar atelectatic changes. Trace effusions. Mild cardiomegaly. Finalized by Tian Jones MD on 09/03/2023 2:25 PM Diagnosis Problem list: Patient Active Problem List Diagnosis Cerumen debris on tympanic membrane of both ears Typical atrial flutter ([facility]) Coronary artery disease involving [place] coronary artery of [place] heart without angina pectoris Tachycardia induced cardiomyopathy ([facility]) Type 2 diabetes mellitus with circulatory disorder, without long-term current use of insulin ([facility]) Other hyperlipidemia Paroxysmal atrial fibrillation ([facility]) BRANDEE (acute kidney injury) ([facility]) Hyperkalemia Bilateral lower extremity edema Systolic and diastolic CHF, acute ([facility]) Acute kidney injury ([facility]) Assessment/Plan Impression: #. Thrombocytopenia - Platelet count 37,000 - Fibrin split product 5-20 - Fibrinogen 324 - Haptoglobin 264 - 62,000 on admission. Baseline appears to be > 100,000. #. Normocytic Anemia - Hgb 8.4 - Iron and Aranesp per Nephrology #. Acute on Chronic Renal Failure - Creatinine 4.11. 6.52 on admission - Nephrology following #. Acute hypoxemic respiratory failure Plan: Differentials for thrombocytopenia broad currently. HIT risk is intermediate. TTP probability is low. Reported GI bleed could be source of consumption. Additionally, patient was considered hypothermic on admission, has been on pressor support, and has multiple comorbidities, which could include shock marrow and chronic disease as possible differentials. Peripheral smear, reticulocyte, PF4, B12, Folate, Iron, Ferritin, [id number] all pending. Continue supportive care per primary and consulted services. Patient lives in [place] and could follow up with Dr. Barnes if necessary upon discharge. Transfusion Parameters: Hgb < 7 and Plts < 10,000, unless active bleeding transfuse Plts < 20,000 Code Status: Full Code Further medical management of comorbid conditions per primary team and consulting services, appreciate assistance The patient was seen and examined and all plans and orders were agreed upon with the attending physician on service today, Dr. Langston. Thank you for the consultation. Keron Stahl, CARDIAC CATH TECHNICIAN-[employer] [facility] [address] [place] [address] Epic Chat is my preferred mode of contact. For after hours (evening, weekends, holidays) Hematology Oncology needs, please call the representative government relations service [phone]. Please ask for the MD representative government relations. September 24, 2023, 2:21 PM NICOLAS Chavez 09/24/23 6296 I have personally performed a face to face evaluation of this patient independently of NICOLAS Chavez. I have reviewed the assessment findings and plan as documented in his note and made all necessary revisions. I have reviewed lab and imaging data independently. My additional findings and orders are as follows: 68-year-old female admitted for generalized weakness and is found to have worsening thrombocytopenia and kidney failure. Intermediate probability for hit. PF4 pending. Would not start anticoagulation for now because the consider GI bleeding. Workup for possible microangiopathic hemolysis. RACQUEL LANGSTON MD Associated Order(s): IP CONSULT TO GASTROENTEROLOGY [facility] Initial Gastroenterology/Hepatology Consultation Note IDENTIFYING DATA PATIENT: Harris Castrejon ADMIT DATE: 09/20/2023 TIME OF EVALUATION: 09/24/2023 1:12 PM Reason for Consult: GI bleed Requesting Physician: Dr. Wright HISTORY OF PRESENT ILLNESS Harris Castrejon is a 68 y.o. female with history of Afib, hypertension, back injury, obesity and congestive heart failure, admitted for acute kidney injury. We are asked to see her for gastrointestinal bleeding. Harris began having maroon stools overnight. She also had a bloody nose overnight which is suspected to be related to the use of BiPAP. Her last maroon stool was at 11:00 a.m. this morning. She denies abdominal pain. She reports having trouble swallowing food. Clear. Per nursing she takes a bite swallows it and then almost immediately regurgitates the food. She has never had an EGD or colonoscopy. She has been recently started on hemodialysis and has been receiving midodrine 3 times daily for hypotension. She has even required pressor support during this admission. She was on a heparin drip for AFib. This has since been stopped as there are concerns of HIT. No family history of GI diseases and/or cancers. GI HISTORY SUMMARY TABLE Last EGD Never Last colonoscopy Never Primary GI physician PAST MEDICAL, SURGICAL, FAMILY, and SOCIAL HISTORY Past Medical History: Diagnosis Date Arrhythmia Hypertension Injury of back Disc L4 and L5 Obesity Systolic and diastolic CHF, acute ([facility]) 09/03/2023 Visual impairment Past Surgical History: Procedure Laterality Date Cardiac catheterization 02/16/2021 Performed by Kelli Su MD at [facility] CARDIAC CATH LABS Caval Tricuspid Isthmus RFA, Carto w/ICE N/A 03/21/2021 Performed by Lurdes Weinberg MD at [facility] 234 BEDS AT [facility] (EP) Coronary angiogram and left ventricular gram/pressure N/A 02/16/2021 Performed by Kelli Su MD at [facility] CARDIAC CATH LABS Coronary fractional flow reserve N/A 02/16/2021 Performed by Kelli Su MD at [facility] CARDIAC CATH LABS Intravascular pressure measurement first vessel each additional vessel (fractional flow reserve) N/A 02/16/2021 Performed by Kelli Su MD at [facility] CARDIAC CATH LABS MYRINGOTOMY W/ TUBES TONSILLECTOMY Family History Problem Relation Age of Onset No Known Problems Mother Heart attack Father Social History: Social History Tobacco Use Smoking status: Some Days Types: Cigarettes Smokeless tobacco: Never Tobacco comments: 2 cigarettes a day Vaping Use Vaping Use: Never used Substance Use Topics Alcohol use: Never Drug use: Never MEDICATIONS Allergies: No Known Allergies Medications Prior to Admission Medication Sig Dispense Refill Last Dose atorvastatin (LIPITOR) 20 mg tablet Take 1 tablet (20 mg total) by mouth daily. 30 tablet 11 ferrous sulfate 325 (65 FE) mg tablet Take 1 tablet (325 mg total) by mouth daily with breakfast. furosemide (LASIX) 40 mg tablet Take 1 tablet (40 mg total) by mouth daily. 30 tablet 6 losartan (COZAAR) 50 mg tablet Take 1 tablet (50 mg total) by mouth daily. 30 tablet 5 metFORMIN (GLUCOPHAGE) 500 mg tablet Take 1 tablet (500 mg total) by mouth 2 (two) times a day with meals. 60 tablet 0 metoprolol succinate XL (TOPROL XL) 100 mg 24 hr tablet Take 0.5 tablets (50 mg total) by mouth nightly. metoprolol succinate XL (TOPROL-XL) 100 mg 24 hr tablet Take 100 mg (1 tablet) in AM and 50 mg (1/2 tablet) in PM (Patient taking differently: Take 1 tablet (100 mg total) by mouth in the morning. Take 100 mg (1 tablet) in AM .) 45 tablet 5 potassium chloride (K-TAB,KLOR-CON) 10 MEQ CR tablet Take 2 tablets (20 mEq total) by mouth in the morning. warfarin (COUMADIN) 5 mg tablet Take 1 tablet (5 mg total) by mouth in the evening. Take .5 tablet (2.5mg) Saturday, Saturday. And Saturday. Take 1tablet (5mg) Saturday, , Saturday, and Saturday.. (Patient not taking: Reported on 09/20/2023) More than a month Current Medications: Current Facility-Administered Medications: albumin human 25 % IVPB Premix - Pyxis Override Pull, , , , bumetanide (BUMEX) 3 mg in sodium chloride 0.9 % 50 mL IVPB, 3 mg, intravenous, BID, Viricardo Gallegosi, DO, Stopped at 09/24/23 0841 calcium gluconate IVPB 1000 mg/50 mL (20 mg/mL premix), 1,000 mg, intravenous, PRN OR calcium gluconate IVPB 2000 mg/100 mL (20 mg/mL premix), 2,000 mg, intravenous, PRN OR calcium gluconate 3,000 mg in sodium chloride 0.9 % 100 mL IVPB, 3,000 mg, intravenous, PRN, NICOLAS Webb cefTRIAXone (ROCEPHIN) 1,000 mg in sodium chloride 0.9 % 50 mL IVPB-MBP, 1,000 mg, intravenous, Q24H, NICOLAS Lima, Stopped at 09/24/23 0641 darbepoetin stefania-polysorbate (ARANESP) injection 100 mcg, 100 mcg, subcutaneous, Weekly, Vidhit Miguel, DO, 100 mcg at 09/22/23 1348 dextrose (GLUTOSE) 40 % gel 15 g, 15 g, oral, PRN, NICOLAS Webb dextrose 5 % (D5W) infusion, 100 mL/hr, intravenous, Continuous PRN, NICOLAS Webb [COMPLETED] insulin regular (HumuLIN R,NovoLIN R) injection 10 Units, 10 Units, intravenous, Once, 10 Units at 09/20/23 0909 AND dextrose 50 % in water (D50W) 50% solution 25 g, 25 g, intravenous, Once PRN AND dextrose 50 % in water (D50W) 50% solution 50 g, 50 g, intravenous, Once PRN, NICOLAS Webb dextrose 50 % in water (D50W) 50% solution 25 mL, 25 mL, intravenous, PRN, NICOLAS Webb famotidine (PEPCID) tablet 20 mg, 20 mg, oral, Q48H, INCOLAS Webb, 20 mg at 09/24/23 0620 glucagon HCL injection 1 mg, 1 mg, intramuscular, PRN, NICOLAS Webb hydrocortisone sod succinate (Solu-CORTEF) injection 50 mg, 50 mg, intravenous, Q12H PAUL, Samanta Wright MD, 50 mg at 09/24/23 0812 insulin lispro (HumaLOG) injection 2-10 Units, 2-10 Units, subcutaneous, With meals and nightly, NICOLAS Webb, 2 Units at 09/24/23 1200 iron sucrose (VENOFER) IVPB 200 mg/100 mL in sodium chloride 0.9% (CMPD premix), 200 mg, intravenous, Every Other Day, Dede Rivera DO, Stopped at 09/24/23 0826 magnesium sulfate IVPB 2000 mg/50 mL in iso-osmotic water (40 mg/mL premix), 2,000 mg, intravenous, PRN OR magnesium sulfate IVPB 4000 mg/100 mL in iso-osmotic water (40 mg/mL premix), 4,000 mg, intravenous, PRN, NICOLAS Webb metOLazone (ZAROXOLYN) tablet 10 mg, 10 mg, oral, Daily, Lilia Cox MD, 10 mg at 09/24/23 1247 metoprolol tartrate (LOPRESSOR) tablet 50 mg, 50 mg, oral, BID, Samanta Wright MD, 50 mg at 09/24/23 0852 midodrine (PROAMATINE) tablet 10 mg, 10 mg, oral, TID, Vidhit Miguel, DO, 10 mg at 09/24/23 0612 midodrine (PROAMATINE) tablet 10 mg, 10 mg, oral, PRN, Vidhit Miguel, DO, 10 mg at 09/22/23 0947 potassium chloride (K-TAB,KLOR-CON) CR tablet 20 mEq, 20 mEq, oral, BID with meals, Lilia Cox MD, 20 mEq at 09/24/23 1214 sevelamer (RENVELA) tablet 800 mg, 800 mg, oral, TID with meals, Vidhit Miguel, DO, 800 mg at 09/24/23 1200 sodium chloride 0.9 % flush 10 mL, 10 mL, intravenous, Q96H, Shiraz Danny, CARDIAC CATH TECHNICIAN-[employer] sodium chloride 0.9 % flush 10 mL, 10 mL, intravenous, PRN, Shiraz Danny, CARDIAC CATH TECHNICIAN-[employer], 10 mL at 09/21/23 1153 sodium chloride 0.9 % flush 10 mL, 10 mL, intravenous, PRN, Shiraz Danny, CARDIAC CATH TECHNICIAN-[employer], 10 mL at 09/21/23 1500 sodium chloride 0.9 % flush 10 mL, 10 mL, intravenous, Q96H, Shiraz Danny, CARDIAC CATH TECHNICIAN-[employer] sodium chloride 0.9 % flush 10 mL, 10 mL, intravenous, PRN, Shiraz Danny, CARDIAC CATH TECHNICIAN-[employer], 10 mL at 09/21/23 1153 sodium chloride 0.9 % flush 10 mL, 10 mL, intravenous, PRN, Shiraz Danny, CARDIAC CATH TECHNICIAN-[employer], 10 mL at 09/21/23 1500 sodium chloride 0.9 % flush 10 mL, 10 mL, intravenous, Q8H, 10 mL at 09/24/23 1217 AND sodium citrate 4 % (3 mL) flush 2 mL, 2 mL, intravenous, Q8H AND sodium chloride 0.9 % flush 10 mL, 10 mL, intravenous, PRN AND sodium chloride 0.9 % flush 10 mL, 10 mL, intravenous, PRN, 10 mL at 09/24/23 0538 AND sodium citrate 4 % (3 mL) flush 2 mL, 2 mL, intravenous, PRN, Shiraz Delgado, CARDIAC CATH TECHNICIAN-[employer] sodium chloride 0.9 % flush 3 mL, 3 mL, intravenous, Q12H, Tanner Harris MD, 3 mL at 09/24/23 1217 sodium chloride 0.9 % infusion, 10 mL/hr, intravenous, Continuous PRN, Salbador Howell APRN-ALINA sodium chloride 0.9 % infusion, 10 mL/hr, intravenous, Continuous PRN, Salbador Howell APRN-ALINA, Last Rate: 10 mL/hr at 09/24/23 0600, Rate Verify at 09/24/23 0600 sodium chloride 0.9 % infusion, 10 mL/hr, intravenous, Continuous PRN, Salbador Howell APRN-ALINA, Stopped at 09/24/23 0028 sodium chloride 0.9 % infusion, 20 mL/hr, intravenous, Continuous PRN, Tanner Harris MD sodium chloride 0.9 % infusion, 250 mL, hemodialysis, Continuous, Vidhit Miguel, DO sodium chloride 0.9 % infusion, 250 mL, hemodialysis, Continuous, Vidhit Miguel, DO sodium citrate 4 % (3 mL) flush 2 mL, 2 mL, intravenous, Q96H, Shiraz Danny, CARDIAC CATH TECHNICIAN-[employer] sodium citrate 4 % (3 mL) flush 2 mL, 2 mL, intravenous, PRN, Shiraz Delgado, CARDIAC CATH TECHNICIAN-[employer], 2 mL at 09/22/23 1151 sodium citrate 4 % (3 mL) flush 2 mL, 2 mL, intravenous, Q96H, Shiraz Danny, CARDIAC CATH TECHNICIAN-[employer] sodium citrate 4 % (3 mL) flush 2 mL, 2 mL, intravenous, PRN, Shiraz Danny, CARDIAC CATH TECHNICIAN-[employer], 2 mL at 09/22/23 1150 sodium zirconium cyclosilicate (LOKELMA) packet 10 g, 10 g, oral, Daily with lunch, NICOLAS Webb, 10 g at 09/24/23 1200 PRNs: albumin human, , calcium gluconate, 1,000 mg, PRN Or calcium gluconate, 2,000 mg, PRN Or calcium gluconate, 3,000 mg, PRN dextrose, 15 g, PRN dextrose 5 % in water, 100 mL/hr, Continuous PRN dextrose 50 % in water (D50W), 25 g, Once PRN And dextrose 50 % in water (D50W), 50 g, Once PRN dextrose 50 % in water (D50W), 25 mL, PRN glucagon (human recombinant), 1 mg, PRN magnesium sulfate, 2,000 mg, PRN Or magnesium sulfate, 4,000 mg, PRN midodrine, 10 mg, PRN sodium chloride, 10 mL, PRN sodium chloride, 10 mL, PRN sodium chloride, 10 mL, PRN sodium chloride, 10 mL, PRN sodium chloride, 10 mL, PRN And sodium chloride, 10 mL, PRN And sodium citrate, 2 mL, PRN sodium chloride 0.9 %, 10 mL/hr, Continuous PRN sodium chloride 0.9 %, 10 mL/hr, Continuous PRN sodium chloride 0.9 %, 10 mL/hr, Continuous PRN sodium chloride 0.9 %, 20 mL/hr, Continuous PRN sodium citrate, 2 mL, PRN sodium citrate, 2 mL, PRN REVIEW OF SYSTEMS See HPI, otherwise ROS negative as below CONSTITUTIONAL: negative HEENT: negative RESPIRATORY: negative CARDIOVASCULAR: negative GASTROINTESTINAL: as in HPI GENITOURINARY: negative INTEGUMENT/BREAST: negative HEMATOLOGIC/LYMPHATIC: negative ALLERGIC/IMMUNOLOGIC: negative ENDOCRINE: negative MUSCULOSKELETAL: negative NEUROLOGICAL: negative BEHAVIOR/PSYCH: negative OBJECTIVE DATA Vitals: BP 127/87 Pulse 103 Temp 36.9 C (98.4 F) (Oral) Resp 22 Ht 165.1 cm (5' 5 ) Wt 128 kg (282 lb 3 oz) SpO2 94% BMI 46.96 kg/m GEN: alert and oriented x3, NAD, at bedside HEENT: Normocephlic, Atraumatic, No sclera icterus CV: RRR, no murmur, rub, gallop, no edema PULM: clear anteriorly ABD: +Bowel sounds, soft, non-tender, non-distended, obese SKIN: Warm, dry, no jaundice appreciated LABS AND IMAGING CBC: Lab Results Component Value Date WBC 10.1 09/24/2023 HGB 8.4 (L) 09/24/2023 HCT 25.5 (L) 09/24/2023 MCV 93 09/24/2023 PLT 37 (L) 09/24/2023 BMP: Lab Results Component Value Date GLU 135 (H) 09/24/2023 CALCIUM 7.7 (L) 09/24/2023 SODIUM 142 09/24/2023 K 3.5 09/24/2023 CO2 22 09/24/2023 BUN 62 (H) 09/24/2023 CREATININE 4.11 (H) 09/24/2023 PT/INR: Lab Results Component Value Date INR 1.6 (H) 09/24/2023 INR 1.4 (H) 09/23/2023 INR 1.4 (H) 09/22/2023 PROTIME 18.2 (H) 09/24/2023 PROTIME 16.4 (H) 09/23/2023 PROTIME 16.5 (H) 09/22/2023 FOLATE: Lab Results Component Value Date FOLATE 4.7 (L) 09/20/2023 IRON: Lab Results Component Value Date IRON 65 09/20/2023 TIBC 400 09/20/2023 FERRITIN 40 09/20/2023 IMAGING: Nothing pertinent to GI ASSESSMENT AND PLAN Harris Castrejon is a 68 y.o. female with history of Afib on Coumadin, hypertension, back injury, obesity and congestive heart failure, admitted for acute kidney injury. We are asked to see her for gastrointestinal bleeding. Gastrointestinal bleeding associated with 2 episodes of maroon stools, Dysphagia -hemoglobin 8.4 -tachycardia and hypotension likely uncontrolled Afib vs hypotension r/t HD -platelets 37 -INR greater the 16 on 09/19, takes Coumadin -fibrin split product elevated, Fibrinogen wnl, Heparin anti-xa, unfractionated 0.64 -Haptoglobin elevated 264 -HIT panel pending 2. Acute on chronic renal failure -started on HD 09/21/2023 -nephrology following 3. Acute hypoxic respiratory failure -currently on room air -BiPAP PRN, required BiPAP overnight 4. AFib -was on heparin drip, this was stopped today due to concerns for HIT -HIT panel pending -Hematology consulted PLAN: Monitor H&H Await HIT panel Start PPI IV q12h Needs EGD and colonoscopy when platelet count allows and clinical course This consult was discussed with Dr. Terry, the attending physician. If you have any questions or need any further information, please feel free to contact the GI Consult Service. Thank you for allowing us to participate in the care of Harris Castrejon. NICOLAS Sandoval [facility] [address] [place] [address] PH: [phone] NICOLAS Mann 09/24/23 1630 Urology Consultation Patient: Harris Castrejon Date of : 1955 ATTENDING: Dr. Correa CHIEF COMPLAINT: gross hematuria HISTORY OF PRESENT ILLNESS: The patient is a 68 y.o. female who presents with weakness, and not feeling well for the last few days. She has PMH of paroxysmal atrial fibrillation on Coumadin, hypertension, diabetes mellitus type 2, chronic diastolic congestive heart failure, history of atrial flutter with ablation in 2020. Of note pt was recently admitted with BRANDEE. On presentation today, she was found to have supratherapeutic INR of 16.6, BNP of 5 5 5, creatinine of 6.52, hypothermia with temperature recorded at 29.5 C, and hypotension. She received Levophed, ceftriaxone, Solu-Cortef, and saline bolus and was transferred to [facility] for further evaluation. On arrival, nursing staff attempted to place Dasilva catheter. They had immediate return of maroon colored urine and met resistance with Dasilva therefore removed it. Bladder scan showed volume of 278 mL. Past urologic history: Patient denies having seen a urologist in the past, denies history of kidney stones, UTIs or malignancy. She denies history of hematuria. She states she has been urinating less than usual over the last few days, and did urinate this morning a small amount which was rona in color. Patient's old records, notes and chart reviewed and summarized above. Past Medical History: Past Medical History: Diagnosis Date Arrhythmia Hypertension Injury of back Disc L4 and L5 Obesity Systolic and diastolic CHF, acute (CMS-HCC) 09/03/2023 Visual impairment Past Surgical History: Past Surgical History: Procedure Laterality Date Cardiac catheterization 02/16/2021 Performed by Kelli Su MD at [facility] CARDIAC CATH LABS Caval Tricuspid Isthmus RFA, Carto w/ICE N/A 03/21/2021 Performed by Lurdes Weinberg MD at [facility] BEDS AT [facility] (EP) Coronary angiogram and left ventricular gram/pressure N/A 02/16/2021 Performed by Kelli Su MD at [facility] CARDIAC CATH LABS Coronary fractional flow reserve N/A 02/16/2021 Performed by Kelli Su MD at [facility] CARDIAC CATH LABS Intravascular pressure measurement first vessel each additional vessel (fractional flow reserve) N/A 02/16/2021 Performed by Kelli Su MD at [facility] CARDIAC CATH LABS MYRINGOTOMY W/ TUBES TONSILLECTOMY Previous surgery: None Medications: Scheduled Meds: albumin human, 25 g, intravenous, BID bumetanide, 3 mg, intravenous, BID cefTRIAXone (ROCEPHIN) IV, 1,000 mg, intravenous, Q24H famotidine, 20 mg, oral, Q48H hydrocortisone sodium succinate, 50 mg, intravenous, Q6H insulin lispro, 2-10 Units, subcutaneous, With meals and nightly midodrine, 10 mg, oral, TID sevelamer, 800 mg, oral, TID with meals sodium bicarbonate, 150 mEq, intravenous, Once sodium chloride, 3 mL, intravenous, Q12H sodium zirconium cyclosilicate, 10 g, oral, Daily with lunch Continuous Infusions: dextrose 5 % in water, 100 mL/hr norepinephrine, 0.01-0.2 mcg/kg/min, Last Rate: 0.04 mcg/kg/min (09/20/23 0904) sodium chloride 0.9 %, 10 mL/hr sodium chloride 0.9 %, 10 mL/hr sodium chloride 0.9 %, 10 mL/hr, Last Rate: 10 mL/hr (09/20/23 0800) sodium chloride 0.9 %, 20 mL/hr PRN Meds:. calcium gluconate OR calcium gluconate OR calcium gluconate dextrose dextrose 5 % in water [COMPLETED] insulin regular AND dextrose 50 % in water (D50W) AND dextrose 50 % in water (D50W) dextrose 50 % in water (D50W) glucagon (human recombinant) magnesium sulfate OR magnesium sulfate sodium chloride 0.9 % sodium chloride 0.9 % sodium chloride 0.9 % sodium chloride 0.9 % Allergies: Patient has no known allergies. Social History: Social History Socioeconomic History Marital status: Spouse name: Not on file Number of children: Not on file Years of education: Not on file Highest education level: Not on file Occupational History Not on file Tobacco Use Smoking status: Some Days Smokeless tobacco: Never Vaping Use Vaping Use: Never used Substance and Sexual Activity Alcohol use: Never Drug use: Never Sexual activity: Defer Other Topics Concern Coffee Not Asked Tea Not Asked Carbonated Beverages Not Asked Chocolate Not Asked Caffeine Use Yes Social History Narrative Not on file Social Determinants of Health Financial Resource Strain: Not on file Food Insecurity: No Food Insecurity (09/20/2023) Hunger Screening Food Insecurity - Worry: Never True Food Insecurity - Inability: Never True Transportation Needs: Not on file Physical Activity: Not on file Stress: Not on file Social Connections: Not on file Interpersonal Safety: Not on file Family History: Family History Problem Relation Age of Onset No Known Problems Mother Heart attack Father Previous Urologic Family history: Unknown REVIEW OF SYSTEMS: General ROS: positive for - fatigue Psychological ROS: negative ENT ROS: negative Hematological and Lymphatic ROS: negative Endocrine ROS: negative Respiratory ROS: negative Cardiovascular ROS: negative Gastrointestinal ROS: negative Genito-Urinary ROS: see HPI Musculoskeletal ROS: Positive for weakness Physical Exam: This a 68 y.o. patient Patient Vitals for the past 24 hrs: BP Temp Temp src Pulse Resp SpO2 Weight 09/20/23 1200 91/70 -- -- 84 15 97 % -- 09/20/23 1100 (!) 79/58 -- -- 80 11 95 % -- 09/20/23 1000 93/58 -- -- 97 14 98 % -- 09/20/23 0900 (!) 82/57 -- -- 64 12 94 % 131.8 kg (290 lb 9.1 oz) 09/20/23 0800 (!) 88/72 (!) 32.7 C (90.9 F) Axillary 89 13 100 % -- 09/20/23 0747 (!) 84/65 -- -- 83 13 99 % -- 09/20/23 0645 100/69 -- -- 73 14 100 % -- 09/20/23 0630 (!) 117/98 -- -- 82 16 98 % -- 09/20/23627 -- (!) 33.6 C (92.4 F) Temporal 78 -- -- -- Constitutional: Patient in no acute distress; Neuro: alert and oriented to person place and time. Psych: Mood and affect normal. Skin: Normal Lungs: Respiratory effort normal Cardiovascular: Normal peripheral pulses Abdomen: Soft, non-tender, non-distended with no CVA, flank tenderness : Normal external female genitalia Conditions, 20 Czech Dasilva catheter inserted into the urethra. No urine returned. Catheter then irrigated easily with normal saline for return of pink tinged irrigant. Balloon inflated with 10 mL sterile water. Patient tolerated well LABS: Results from last 7 days Lab Units 09/20/23 0744 09/19/23 2329 WBC X10E9/L 9.7 8.1 HEMOGLOBIN g/dL 10.1* 9.6* HEMATOCRIT % 31.1* 29.5* PLATELETS X10E9/L 67* 62* Results from last 7 days Lab Units 09/20/23 0805 09/20/23 0744 09/20/23 0630 09/19/23 2329 POTASSIUM mmol/L -- 5.4* -- 4.9 CHLORIDE mmol/L -- 104 -- 108 CO2 mmol/L -- 16* -- 15* BUN mg/dL -- 90* -- 99* CREATININE mg/dL -- 6.01* -- 6.52* BEDSIDE GLUCOSE mg/dL 187* -- < > -- GLUCOSE mg/dL -- 183* -- 100* CALCIUM mg/dL -- 7.1* -- 7.1* < > = values in this interval not displayed. Additional Lab/culture results: Urinalysis: Pending Imaging Results: Renal ultrasound pending Assessment and Plan Impression: 68-year-old female with gross hematuria In setting of supratherapeutic INR Plan: Maintain Dasilva for accurate I&O Will await renal ultrasound Discussed with KAVYA Navarrete 12:59 PM 09/20/2023 KAVYA Thakkar 09/20/23 1312 Associated Order(s): IP CONSULT TO NEPHROLOGY Images from the original note were not included. NEPHROLOGY CONSULT NOTE Date of Admission: 09/20/2023 6:17 AM Reason for Consult: Acute kidney injury and hyperkalemia Referring Physician: Favio Izquierdo MD PCP: Carol Akins PA-C Chief Complaint: No chief complaint on file. Assessment Acute kidney injury possibly secondary to prerenal etiology along with concerns of acute tubular necrosis, on likely underlying chronic kidney disease stage IV baseline renal function unknown serum creatinine 2020 normal, recent serum creatinine at 1.8 mg/dL prior to hospitalization. Renal ultrasound from 09/04/2023 showing right kidney 10.8 cm, left kidney 10.9 cm, no hydronephrosis noted. Hyperkalemia setting of ongoing renal insufficiency Anion gap metabolic acidosis setting of ongoing renal insufficiency Hyperphosphatemia setting of ongoing renal insufficiency Anemia of chronic disease, rule out iron deficiency Supratherapeutic INR Hypertension, blood pressure currently stable Atrial fibrillation with history of ablation, on Coumadin at home Diabetes mellitus type 2, management per primary On chronic systolics congestive heart failure, currently compensated Volume status: Hypervolemic with +2 pitting edema bilaterally, positive thigh edema. Plan Discontinue bicarbonate fluids Start Bumex 3 mg IV b.i.d. Sodium bicarbonate IV push 150 mEq x1 Albumin 25% 25 g x 2 doses Midodrine 10 t.i.d. Wean off pressors as tolerated Acute kidney injury workup ordered Renal panel daily Strict I&Os Send urine studies Maintain map greater than 65 Electrolyte checks every 6 hours Check iron studies Start Renvela Continue low potassium and phosphorus diet Place Dasilva catheter, Plan discussed with urology service Plan discussed with patient's at bedside Plan discussed with bedside nurse History of Present Illness Harris Castrejon is a 68 y.o. female who was admitted on 09/20/2023 with past medical history of paroxysmal atrial fibrillation on Coumadin, hypertension, diabetes mellitus type 2, chronic diastolic congestive heart failure, history of atrial flutter with ablation in 2020, who presented to the hospital due to ongoing progressive weakness and generalized weakness and not feeling well for the last few days. Patient was unable to ambulate appropriately. On presentation patient was found to have significant laboratory abnormalities with supratherapeutic INR of greater than 16 with elevated BNP greater than 500, with acute kidney injury with serum creatinine of 6.52 mg/dL with BUN of 99 and serum bicarbonate level of 15. Patient is also found to be severely hypothermic. Patient was started on pressor support along with 1 L of normal saline fluid bolus. Patient was transferred to [facility] for further evaluation. Nephrology is being consulted today at the request of Dr. Eng to assist with patient's ongoing acute kidney injury electrolyte imbalance. Patient is currently in intensive care unit she is on Levophed, alert oriented. Currently on room air. No urine output has been documented since admission. Problem list Acute kidney injury possibly secondary to prerenal etiology along with concerns of acute tubular necrosis, on likely underlying chronic kidney disease stage IV baseline renal function unknown serum creatinine 2020 normal, recent serum creatinine at 1.8 mg/dL prior to hospitalization. Renal ultrasound from 09/04/2023 showing right kidney 10.8 cm, left kidney 10.9 cm, no hydronephrosis noted. Hyperkalemia Anion gap metabolic acidosis Hyperphosphatemia Supratherapeutic INR Hypertension Atrial fibrillation with history of ablation Diabetes mellitus type 2 Chronic systolics congestive heart failure Hyperlipidemia Echocardiogram performed 09/04/2023 showing systolic function low EF 40-45% with left ventricular hypertrophy noted. [id number] mitral regurgitation noted. Moderate tricuspid regurgitation noted. Diastolic function indeterminate due to atrial fibrillation. Right ventricle size normal systolic function mildly reduced. Past Medical History Past Medical History: Diagnosis Date Arrhythmia Hypertension Injury of back Disc L4 and L5 Obesity Systolic and diastolic CHF, acute (CMS-HCC) 09/03/2023 Visual impairment Past Surgical History: Procedure Laterality Date Cardiac catheterization 02/16/2021 Performed by Kelli Su MD at [facility] CARDIAC CATH LABS Caval Tricuspid Isthmus RFA, Carto w/ICE N/A 03/21/2021 Performed by Lurdes Weinberg MD at [facility]EDS AT [facility] (EP) Coronary angiogram and left ventricular gram/pressure N/A 02/16/2021 Performed by Kelli Su MD at [facility] CARDIAC CATH LABS Coronary fractional flow reserve N/A 02/16/2021 Performed by Kelli Su MD at [facility] CARDIAC CATH LABS Intravascular pressure measurement first vessel each additional vessel (fractional flow reserve) N/A 02/16/2021 Performed by Kelli Su MD at [facility] CARDIAC CATH LABS MYRINGOTOMY W/ TUBES TONSILLECTOMY Past surgical history: as above. Allergies: No Known Allergies Home Meds: Medications Prior to Admission Medication Sig Dispense Refill Last Dose atorvastatin (LIPITOR) 20 mg tablet Take 1 tablet (20 mg total) by mouth daily. 30 tablet 11 furosemide (LASIX) 40 mg tablet Take 1 tablet (40 mg total) by mouth daily. 30 tablet 6 losartan (COZAAR) 50 mg tablet Take 1 tablet (50 mg total) by mouth daily. 30 tablet 5 metFORMIN (GLUCOPHAGE) 500 mg tablet Take 1 tablet (500 mg total) by mouth 2 (two) times a day with meals. 60 tablet 0 metoprolol succinate XL (TOPROL XL) 100 mg 24 hr tablet Take 0.5 tablets (50 mg total) by mouth nightly. metoprolol succinate XL (TOPROL-XL) 100 mg 24 hr tablet Take 100 mg (1 tablet) in AM and 50 mg (1/2 tablet) in PM 45 tablet 5 warfarin (COUMADIN) 5 mg tablet Take 1 tablet (5 mg total) by mouth in the evening. Take .5 tablet (2.5mg) Saturday, Saturday. And Saturday. Take 1tablet (5mg) Saturday, , Saturday, and Saturday.. Social History: Social History Socioeconomic History Marital status: Spouse name: Not on file Number of children: Not on file Years of education: Not on file Highest education level: Not on file Occupational History Not on file Tobacco Use Smoking status: Some Days Smokeless tobacco: Never Vaping Use Vaping Use: Never used Substance and Sexual Activity Alcohol use: Never Drug use: Never Sexual activity: Defer Other Topics Concern Coffee Not Asked Tea Not Asked Carbonated Beverages Not Asked Chocolate Not Asked Caffeine Use Yes Social History Narrative Not on file Social Determinants of Health Financial Resource Strain: Not on file Food Insecurity: No Food Insecurity (09/20/2023) Hunger Screening Food Insecurity - Worry: Never True Food Insecurity - Inability: Never True Transportation Needs: Not on file Physical Activity: Not on file Stress: Not on file Social Connections: Not on file Interpersonal Safety: Not on file Family History: Family History Problem Relation Age of Onset No Known Problems Mother Heart attack Father Review of Systems Constitutional: Negative for fever, chills and positive for fatigue HENT: Negative Eyes: Negative for discharge Respiratory: Negative for cough and shortness of breath. Cardiovascular: Negative for chest pain and palpitations. Gastrointestinal: Negative for nausea, vomiting, abdominal pain and diarrhea. Endocrine: Negative for fatigue or unexpected weight gain or weight loss Genitourinary: Negative for dysuria, urgency, frequency, hematuria, flank pain, decreased urine volume and difficulty urinating. Musculoskeletal: Negative for myalgias, joint swelling and arthritis. Skin: Negative for rash. Allergy/immunology: Negative for runny nose or redness of eyes Neurological: Positive for lightheadedness. Positive for generalized weakness Hematological: Negative for any recent bleeding or transfusion Psychiatric/Behavioral: Negative Physical Exam Respiratory Source: O2 Device: None (Room air) Admission Weight: Weight: 131.8 kg (290 lb 9.1 oz) Wt Readings from Last 3 Encounters: 09/20/23 131.8 kg (290 lb 9.1 oz) 09/19/23 132 kg (291 lb) 09/05/23 114.3 kg (252 lb) No intake/output data recorded. Vital Signs: Blood pressure (!) 79/58, pulse 80, temperature (!) 32.7 C (90.9 F), temperature source Axillary, resp. rate 11, weight 131.8 kg (290 lb 9.1 oz), SpO2 95%. General: Alert, oriented x 3 and in no obvious distress Psychiatric: Has a normal mood and affect. HEENT: Head normocephalic. Eyes: Conjunctivae and EOM are normal. Cardiovascular: Normal rate, regular rhythm and normal heart sounds. No JVD. Pulmonary/Chest: Air entry bilaterally equal. No wheezes or rales. Abdominal: Soft, bowel sounds are normal and there was no tenderness rebound or guarding. Musculoskeletal: Normal range of motion. No tenderness. Neurological: No obvious deficits. Skin: No rash noted. Extremities: +2 pitting edema positive thigh edema Laboratory Studies Results from last 7 days Lab Units 09/20/23 0744 09/19/23 2329 SODIUM mmol/L 136 133* POTASSIUM mmol/L 5.4* 4.9 CHLORIDE mmol/L 104 108 CO2 mmol/L 16* 15* BUN mg/dL 90* 99* CREATININE mg/dL 6.01* 6.52* CALCIUM mg/dL 7.1* 7.1* PHOSPHORUS mg/dL 9.2* -- MAGNESIUM mg/dL 2.6 2.9* Results from last 7 days Lab Units 09/20/23 0744 09/19/23 2329 WBC X10E9/L 9.7 8.1 HEMOGLOBIN g/dL 10.1* 9.6* HEMATOCRIT % 31.1* 29.5* PLATELETS X10E9/L 67* 62* Results from last 7 days Lab Units 09/20/23 0744 09/19/23 2329 MAGNESIUM mg/dL 2.6 2.9* Lab Results Component Value Date CALCIUM 7.1 (L) 09/20/2023 No results found for: IRON , TIBC , FERRITIN Thank you for the consultation and involving me in the patient's care. Please contact me at [phone] (Office) or [phone] (Answering service) with any questions. Dede Rivera DO [facility] This note was created with the assistance of a speech-recognition program. Although the intention is to generate a document that actually reflects the content of the visit, no guarantees can be provided that every mistake has been identified and corrected by editing. documented in this encounter [facility] 10-04-2023 History of Present illness Narrative Manager Of Regulatory Affairs is looking ahead at the 60 day OD list. The patient was admitted to [facility] 09/20/23. Her name was added to the admit list. Per department policy, will not send out any overdue letters. documented in this encounter [facility] 09-21-2023 Procedure note Associated Ord er(s): HEMODIALYSIS INPATIENT Patient completed 3.5hr treatment 2 hours of HD and 1.5hr of UF treatment. Patient able to tolerate fluid removal of 2.6L. Patient bp soft throughout treatment, midodrine given during treatment and bp was stable to finish treatment. No other medications given during treatment. Primary RN given report. Catheter ran well at 250 BFR. Post weight 130.3kg bed scale Associated Order(s): Central Line Insertion Post-Procedure Diagnose(s): Hyperkalemia; Acute kidney injury ([facility]) PREOPERATIVE DIAGNOSIS: BRANDEE on CKD 4 Hyperkalemia DM2 PROCEDURE: Central Line Insertion Date/Time: 09/21/2023 10:50 AM Performed by: NICOLAS Eubanks Authorized by: NICOLAS Eubanks Consent: Verbal consent obtained. Risks and benefits: risks, benefits and alternatives were discussed Consent given by: patient Patient understanding: patient states understanding of the procedure being performed Patient consent: the patient's understanding of the procedure matches consent given Procedure consent: procedure consent matches procedure scheduled Relevant documents: relevant documents present and verified Test results: test results available and properly labeled Site marked: the operative site was marked Imaging studies: imaging studies available Required items: required blood products, implants, devices, and special equipment available Patient identity confirmed: arm band, hospital-assigned identification number and verbally with patient Time out: Immediately prior to procedure a time out was called to verify the correct patient, procedure, equipment, application support lead and site/side marked as required. Fire Risk Assessment Score Procedure site above the Xiphoid 1 Open O2 source (mask/cannula) 1 Ignition source (Cautery, Fiberoptic Light, Laser) 1 Total Fire Risk Assessment Score 3 Indications: vascular access Anesthesia: Local Anesthetic: lidocaine 1% without epinephrine Anesthetic total: 3 mL Sedation: Patient sedated: no Preparation: skin prepped with ChloraPrep Skin prep agent dried: skin prep agent completely dried prior to procedure Sterile barriers: all five maximum sterile barriers used - cap, mask, sterile gown, sterile gloves, and large sterile sheet Hand hygiene: hand hygiene performed prior to central venous catheter insertion Location details: right internal jugular Patient position: flat Catheter type: triple lumen Pre-procedure: landmarks identified Ultrasound guidance: yes Sterile ultrasound techniques: sterile gel and sterile probe covers were used Number of attempts: 1 Successful placement: yes Post-procedure: line sutured and dressing applied Assessment: free fluid flow, blood return through all ports, placement verified by x-ray and no pneumothorax on x-ray Patient tolerance: patient tolerated the procedure well with no immediate complications Procedure was completed Vital signs stable during the procedure Complications: none Interventions: none Proceduralist Shiraz Delgado CNP ESTIMATED BLOOD LOSS: Less than 20ml FINDINGS: Successful placement of R IJ trialysis line verified by chest xray with no pneumothorax POST OPERATIVE DIAGNOSIS: Same as above NICOLAS Eubanks 09/21/23 1052 documented in this encounter [facility] [employer] 09-20-2023 History and physical note CRITICAL CARE HISTORY & PHYSICAL Name: Harris Castrejon Date: 09/20/2023 Length of Stay: 0 day(s) Chief Complaint: Generalized weakness History of Present Illness: Harris Castrejon is a 68 y.o. year-old female with past medical history significant for paroxysmal atrial fibrillation on warfarin, type 2 diabetes mellitus on home metformin use, CHF decreased EF of 40-45%, atrial flutter ablation on 03/21/2021, hypertension, and hyperlipidemia. She was recently discharged on 09/05/2023 following treatment for an BRANDEE. She presented to [facility] on 09/19/2023 with complaints of progressively worsening generalized weakness over the last several days.She stated that while walking from the bathroom to her chair she became weak and was assisted to the ground. She reported no injury or trauma and no loss of consciousness. EMS was called and transferred the patient to the emergency department. CT brain was performed without any acute intracranial findings noted. CT cervical spine revealed no acute findings either. Lab work revealed elevated INR >16.6, BNP 555mg/mL, creatinine 6.52 mg/dL, BUN 99mg/dL and CO2 15. She was found to be hypothermic with a temperature recorded temperature of 29.5 C and hypotensive for which levophed was initiated. She received 100 mg Solu-Cortef, 2 g ceftriaxone, 5 mg PO vitamin K, 2 units bicarb, and 1 L normal saline prior to being transferred to [facility] for further evaluation. Upon evaluation in the ICU she denies any chest pain, shortness a breath, nausea, vomiting, fever, chills. She notes her main complaint is generalized weakness that is progressively worsened over the last several days as well as previously worsened lower extremity edema. 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 CARDIAC CATH LABS Caval Tricuspid Isthmus RFA, Carto w/ICE N/A 03/21/2021 Performed by Lurdes Weinberg MD at [facility]S [facility]CLUDE 234 BEDS AT [facility] (EP) Coronary angiogram and left ventricular gram/pressure N/A 02/16/2021 Performed by Kelli Su MD at [facility] CARDIAC CATH LABS Coronary fractional flow reserve N/A 02/16/2021 Performed by Kelli Su MD at [facility] CARDIAC CATH LABS Intravascular pressure measurement first vessel each additional vessel (fractional flow reserve) N/A 02/16/2021 Performed by Kelli Su MD at [facility] CARDIAC CATH LABS MYRINGOTOMY W/ TUBES TONSILLECTOMY Review of Systems Medications Prior to Admission Medication Sig Dispense Refill Last Dose atorvastatin (LIPITOR) 20 mg tablet Take 1 tablet (20 mg total) by mouth daily. 30 tablet 11 furosemide (LASIX) 40 mg tablet Take 1 tablet (40 mg total) by mouth daily. 30 tablet 6 losartan (COZAAR) 50 mg tablet Take 1 tablet (50 mg total) by mouth daily. 30 tablet 5 metFORMIN (GLUCOPHAGE) 500 mg tablet Take 1 tablet (500 mg total) by mouth 2 (two) times a day with meals. 60 tablet 0 metoprolol succinate XL (TOPROL XL) 100 mg 24 hr tablet Take 0.5 tablets (50 mg total) by mouth nightly. metoprolol succinate XL (TOPROL-XL) 100 mg 24 hr tablet Take 100 mg (1 tablet) in AM and 50 mg (1/2 tablet) in PM 45 tablet 5 warfarin (COUMADIN) 5 mg tablet Take 1 tablet (5 mg total) by mouth in the evening. Take .5 tablet (2.5mg) Saturday, Saturday. And Saturday. Take 1tablet (5mg) Saturday, , Saturday, and Saturday.. No Known Allergies Family History Problem Relation Age of Onset No Known Problems Mother Heart attack Father Social History Socioeconomic History Marital status: Spouse name: Not on file Number of children: Not on file Years of education: Not on file Highest education level: Not on file Occupational History Not on file Tobacco Use Smoking status: Some Days Smokeless tobacco: Never Vaping Use Vaping Use: Never used Substance and Sexual Activity Alcohol use: Never Drug use: Never Sexual activity: Defer Other Topics Concern Coffee Not Asked Tea Not Asked Carbonated Beverages Not Asked Chocolate Not Asked Caffeine Use Yes Social History Narrative Not on file Social Determinants of Health Financial Resource Strain: Not on file Food Insecurity: No Food Insecurity (09/20/2023) Hunger Screening Food Insecurity - Worry: Never True Food Insecurity - Inability: Never True Transportation Needs: Not on file Physical Activity: Not on file Stress: Not on file Social Connections: Not on file Interpersonal Safety: Not on file Temp: [29.5 C (85.1 F)-33.6 C (92.4 F)] 33.6 C (92.4 F) Pulse: [54-91] 73 Resp: [14-18] 14 BP: (58-117)/(47-98) 100/69 SpO2: [92 %-100 %] 100 % O2 Device: None (Room air) O2 Device: None (Room air) Physical Exam Ventilator Invasive Hemodynamic [place] No intake/output data recorded. Recent Results (from the past 24 hour(s)) SARS/FLU A+B/RSV by NAAT/Molecular (M4RT Collection Tube) Collection Time: 09/19/23 11:26 PM Result Value Ref Range FLU A PCR Negative Negative^Negative FLU B PCR Negative Negative^Negative RSV by PCR Negative Negative^Negative SARS CoV 2 BY PCR Not Detected Not Detected^Not Detected CBC auto differential Collection Time: 09/19/23 11:29 PM Result Value Ref Range White Blood Cells 8.1 4.0 - 11.0 X10E9/L RBC count 3.14 (L) 3.80 - 5.20 X10E12/L Hemoglobin 9.6 (L) 11.7 - 15.5 g/dL Hematocrit 29.5 (L) 35 - 47 % MCV 94 80 - 100 fL MCH 30.5 27 - 34 pg MCHC 32.5 32 - 36 g/dL RDW 20.5 (H) 11.5 - 15.0 % Platelets 62 (L) 150 - 450 X10E9/L MPV 11.6 7 - 12 fL % neutrophils 86.3 % % lymphocytes 6.7 % % monocytes 6.4 % % eosinophils 0.5 % % Basophils 0.1 % Neutrophils Absolute (A) 7.0 (H) 1.5 - 6.6 X10E9/L Lymphocytes Absolute 0.5 (L) 1.0 - 3.5 X10E9/L Monocytes Absolute 0.5 0 - 0.9 X10E9/L Eosinophils Absolute 0.0 0.0 - 0.4 X10E9/L Basophils Absolute 0.0 0.0 - 0.2 X10E9/L Protime & INR Collection Time: 09/19/23 11:29 PM Result Value Ref Range Protime 191.2 (H) 9.8 - 13.2 sec Inr >16.6 (HH) 0.8 - 1.1 APTT Collection Time: 09/19/23 11:29 PM Result Value Ref Range aPTT 88 (H) 26 - 37 sec Comprehensive metabolic panel Collection Time: 09/19/23 11:29 PM Result Value Ref Range Sodium 133 (L) 134 - 146 mmol/L Potassium, Bld 4.9 3.5 - 5.0 mmol/L Chloride 108 98 - 109 mmol/L CO2 15 (L) 22 - 32 mmol/L Anion gap 10 5 - 15 mmol/L BUN 99 (H) 5 - 27 mg/dL Creatinine 6.52 (H) 0.40 - 1.00 mg/dL Glucose 100 (H) 65 - 99 mg/dL Calcium 7.1 (L) 8.5 - 10.5 mg/dL Total Protein 6.4 6.0 - 8.0 g/dL Albumin 3.2 3.2 - 5.3 g/dL Alkaline Phosphatase 98 39 - 130 U/L AST 34 0 - 41 U/L ALT 27 0 - 31 U/L Total bilirubin 0.7 0.3 - 1.2 mg/dL eGFR (CKD-EPI)non-race dependent 7 (L) >59 ml/min/1.73sq.m Lactate w/ Reflex Collection Time: 09/19/23 11:29 PM Result Value Ref Range Lactate w/ Reflex 2.2 (H) 0.4 - 2.0 mmol/L Magnesium Collection Time: 09/19/23 11:29 PM Result Value Ref Range Magnesium 2.9 (H) 1.8 - 2.6 mg/dL Troponin I Collection Time: 09/19/23 11:29 PM Result Value Ref Range Troponin I 0.02 0.00 - 0.04 ng/mL Procalcitonin Collection Time: 09/19/23 11:29 PM Result Value Ref Range Procalcitonin 0.53 (H) <0.05 ng/mL B-type natriuretic peptide Collection Time: 09/19/23 11:29 PM Result Value Ref Range BNP 555 (H) <100.0 pg/mL CK Total Collection Time: 09/19/23 11:29 PM Result Value Ref Range Total CK 100 24 - 170 U/L TSH with Reflex Collection Time: 09/19/23 11:29 PM Result Value Ref Range TSH 3.37 0.49 - 4.67 uIU/mL Blood gas, venous Collection Time: 09/19/23 11:41 PM Result Value Ref Range Sample Type VENOUS Body Temp 37.0 37.0 C pH, Venous 7.179 (L) 7.320 - 7.420 PCO2, Venous 37.7 35 - 50 MMHG PO2, Venous 35 30 - 50 MMHG Base,Deficit 13.0 (H) 0.0 - 2.0 MMOL/L Portable HCO3 14.0 (L) 20.0 - 24.0 MMOL/L % O2 Sat 53.0 (L) >80.0 % Ronnie's Test NA Sample Site N/A Insp. O2 Conc. 21 % Oxygen Source RoomAir Lactate Collection Time: 09/20/23 3:50 AM Result Value Ref Range Lactate 1.5 0.4 - 2.0 mmol/L Bedside Glucose *Place/Obtain serum glucose if >500(>600 MRH) per glucometer. Collection Time: 09/20/23 6:30 AM Result Value Ref Range Bedside glucose 190 (H) 65 - 99 mg/dL Microbiology Results Procedure Component Value Units Date/Time Blood culture [[id number]] Collected: 09/19/232352 Specimen: Blood, Peripheral Draw Updated: 09/20/2355 Blood culture [[id number]] Collected: 09/19/232352 Specimen: Blood, Peripheral Draw Updated: 09/20/2355 SARS/FLU A+B/RSV by NAAT/Molecular (M4RT Collection Tube) [[id number]] Collected: 09/19/23 2326 Specimen: Nasopharynx Updated: 09/20/23 0029 FLU A PCR Negative FLU B PCR Negative RSV by PCR Negative SARS CoV 2 BY PCR Not Detected Patient Active Problem List Diagnosis Cerumen debris on tympanic membrane of both ears Typical atrial flutter ([facility]) Coronary artery disease involving [place] coronary artery of [place] heart without angina pectoris Tachycardia induced cardiomyopathy ([facility]) Type 2 diabetes mellitus with circulatory disorder, without long-term current use of insulin ([facility]) Other hyperlipidemia Paroxysmal atrial fibrillation ([facility]) BRANDEE (acute kidney injury) ([facility]) Hyperkalemia Bilateral lower extremity edema Systolic and diastolic CHF, acute ([facility]) Acute kidney injury ([facility]) ASSESSMENT: BRANDEE on ARF w/ baseline CKD Hypothermia CHF w/ mildly to moderately decreased EF of 40-45% per 09/04/23 Echo Paroxysmal atrial fibrillation, on Coumadin at home Elevated INR 16.6 Shock, unspecified, low dose levophed infusing on arrival to ICU Metabolic acidosis Anemia of chronic disease Thrombocytopenia, appears chronic Type 2 DM w/ hyperglycemia and CKD Lower extremity edema PLAN: Admit to ICU Administer 5mg IV vitamin K, repeat INR 12:00 Type and screen for possible FFP administration Evaluate patient later today following INR check for possible central line placement Consult nephrology for BRANDEE Hold home antihypertensives, metformin, and warfarin Claudia dailey for hypothermia correction Q6H potassium recheck while patient is rewarming Levophed for MAP > 65, wean as tolerated SSI for glucose control Pepcid for GI prophylaxis NICOLAS Webb POC d/w Dr. Eng, further orders to follow. Critical Care Time: 34 minutes [x] This patient, with a critical illness, requires constant monitoring and titration of care by a Critical Care Web Site Developer. Failure to do so may result in further organ system failure, imminent deterioration, or . NICOLAS Webb 09/20/23 0747 [facility] CERVICAL SPINE WO CONT Procedure: CT CERVICAL SPINE WO CONT History: Neck trauma (Age >= 65y) Multi-detector CT performed through the cervical spine in the axial plane with multiplanar reconstructions.Automated exposure control was utilized. Findings: There is no prevertebral soft tissue swelling. Diffuse disc disease and facet arthritis There is no fracture, malalignment or destructive lesion. IMPRESSION: 1. No acute findings. Consider MRI cervical spine and possibly cervical spine flexion-extension radiographs if you suspect occult soft tissue injury and/or ligamentous injury. All CT scans at this facility use dose modulation, iterative reconstruction, and/or weight based dosing when appropriate to reduce radiation dose to as low as reasonably achievable. Finalized by Watson Ceja MD on 09/20/2023 1:42 AM [facility] Evaluation note Diagnosis Acute kidney injury (CMS-HCC)- Primary Acute kidney injury (CMS-HCC) Hyperkalemia Hyperpotassemia Folate deficiency Other B-complex deficiencies Systolic and diastolic CHF, acute (CMS-HCC) Type 2 diabetes mellitus with other circulatory complication, without long-term current use of insulin (CMS-HCC) [facility] Diagnosis Typical atrial flutter (CMS-HCC)- Primary [facility] Diagnosis Rectal cancer (CMS-HCC)- Primary Malignant neoplasm of rectum documented [facility] Diagnosis Esophagitis- Primary Unspecified esophagitis documented [facility] this [facility] Diagnosis Septic shock (CMS-HCC)- Primary Septic shock (CMS-HCC) Atrial fibrillation with RVR (CMS-HCC) Chronic wound infection of abdomen, initial encounter Pneumonia of right upper lobe due to infectious organism Pressure injury of sacral region, stage 4 (CMS-HCC) Adenocarcinoma of rectum (CMS-HCC) [facility] in this [facility]ed in this [facility]ed in this [facility]ocumented in this [facility] Advance Directives No Advanced Directives Records FoundLatest Code Status on File Code Status Date Activated Date Inactivated Comments Full Code 09/20/2023 7:06 AM Code Status History Code Status Date Activated Date Inactivated Comments Full Code 09/03/2023 4:29 PM 09/05/2023 2:40 PM Full Code 02/07/2021 11:29 AM 02/09/2021 3:36 PM Latest Code Status on File Code Status Date Activated Date Inactivated Comments Full Code 09/20/2023 7:06 AM Code Status History Code Status Date Activated Date Inactivated Comments Full Code 09/03/2023 4:29 PM 09/05/2023 2:40 PM Full Code 02/07/2021 11:29 AM 02/09/2021 3:36 PM Latest Code Status on File Code Status Date Activated Date Inactivated Comments Full Code 09/20/2023 7:06 AM 10/05/2023 7:01 PM Latest Code Status on File Code Status Date Activated Date Inactivated Comments Full Code 10/19/2023 4:56 AM Code Status History Code Status Date Activated Date Inactivated Comments Full Code 10/18/2023 3:13 AM 10/19/2023 4:42 AM Full Code 09/20/2023 7:06 AM 10/05/2023 7:01 PM Full Code 09/03/2023 4:29 PM 09/05/2023 2:40 PM Full Code 02/07/2021 11:29 AM 02/09/2021 3:36 PM Latest Code Status on File Code Status Date Activated Date Inactivated Comments Full Code 10/19/2023 4:56 AM 12/04/2023 6:24 PM Latest Code Status on File Code Status Date Activated Date Inactivated Comments Full Code 10/19/2023 4:56 AM 12/04/2023 6:24 PM Code Status History Code Status Date Activated Date Inactivated Comments Full Code 10/18/2023 3:13 AM 10/19/2023 4:42 AM Full Code 09/20/2023 7:06 AM 10/05/2023 7:01 PM Full Code 09/03/2023 4:29 PM 09/05/2023 2:40 PM Full Code 02/07/2021 11:29 AM 02/09/2021 3:36 PM Latest Code Status on File Code Status Date Activated Date Inactivated Comments Full Code 12/22/2023 4:03 PM Code Status History Code Status Date Activated Date Inactivated Comments Full Code 10/19/2023 4:56 AM 12/04/2023 6:24 PM Full Code 10/18/2023 3:13 AM 10/19/2023 4:42 AM Full Code 09/20/2023 7:06 AM 10/05/2023 7:01 PM Full Code 09/03/2023 4:29 PM 09/05/2023 2:40 PM Reason for Referral Specialty Diagnoses / Procedures Referred By Contac t Referred To Contact Diagnoses Acute kidney injury (CMS-HCC) Systolic and diastolic CHF, acute (CMS-HCC) Type 2 diabetes mellitus with other circulatory complication, without long-term current use of insulin (CMS-HCC) Procedures Follow-up with primary care provider Elvi Schreiber MD [address] [place] [id number] Referral ID Status Reason Start Date Expiration Date V isits Requested Visits Authorized [id number] Pending Review 10/04/2023 10/03/2024 1 1 Specialty Diagnoses / Procedures Referred By Contac t Referred To Contact Procedures Adult diet Elvi Schreiber MD [address] [place] [address] Referral ID Status Reason Start Date Expiration Date V isits Requested Visits Authorized [id number] Pending Review 10/04/2023 10/03/2024 1 1 Specialty Diagnoses / Procedures Referred By Contac t Referred To Contact Radiology Diagnoses Rectal cancer (CMS-HCC) Procedures MR pelvis with and without contrast Mitra Crowell MD [address] [facility] [place] [address] Referral ID Status Reason Start Date Expiration Date V isits Requested Visits Authorized [id number] Pending Review 12/16/2023 12/15/2024 1 1 Specialty Diagnoses / Procedures Referred By Contac t Referred To Contact Diagnoses Esophagitis Procedures EGD Mary Kay Newell, CARDIAC CATH TECHNICIAN-CLASS A [employer]EMAN [address] [address] Referral ID Status Reason Start Date Expiration Date V isits Requested Visits Authorized [id number] Pending Review 12/09/2023 12/08/2024 1 1 Specialty Diagnoses / Procedures Referred By Contac t Referred To Contact Procedures Wound care (specify) Brandon Carrillo MD [address] [place] [address] Referral ID Status Reason Start Date Expiration Date V isits Requested Visits Authorized [id number] Pending Review 12/28/2023 12/27/2024 1 1 Referral ID Status Reason Start Date Expiration Date V isits Requested Visits Authorized [id number] Pending Review 12/28/2023 12/27/2024 1 1 Specialty Diagnoses / Procedures Referred By Contac t Referred To Contact Procedures Adult diet Brandon Carrillo MD [address] [place] [address] Referral ID Status Reason Start Date Expiration Date V isits Requested Visits Authorized [id number] Pending Review 12/28/2023 12/27/2024 1 1 Summary Purpose Family History No Family History Records FoundNo Family History Records FoundNo Family History Records Found Additional Source Comments Care Teams (unrecognized sec tion and content) Rectifier Operator Relationship Specialty Start Date End Date Carol Akins PA-C [facility] [place] [address] PCP - General Physician Parking Ramp Attendant 09/19/23 Rectifier Operator Relationship Specialty Start Date End Date Carol Akins PA-C [address] [place] [address] PCP - General Physician Parking Ramp Attendant 09/19/23 Rectifier Operator Relationship Specialty Start Date End Date Carol Akins PA-C [address] [place] [address] PCP - General Physician Parking Ramp Attendant 09/19/23 Rectifier Operator Relationship Specialty Start Date End Date Carol Akins PA-C [address] [place] [address] PCP - General Physician Parking Ramp Attendant 09/19/23 Rectifier Operator Relationship Specialty Start Date End Date Carol Akins PA-C [address] [place] [address] PCP - General Physician Parking Ramp Attendant 09/19/23 Rectifier Operator Relationship Specialty Start Date End Date Carol Akins PA-C [address] [place] [id number] PCP - General Physician Parking Ramp Attendant 09/19/23 Rectifier Operator Relationship Specialty Start Date End Date Carol Akins PA-C [address] [place] [address] PCP - General Physician Parking Ramp Attendant 09/19/23 Rectifier Operator Relationship Specialty Start Date End Date Carol Akins PA-C [address] [place] [address] PCP - General Physician Parking Ramp Attendant 09/19/23 Rectifier Operator Relationship Specialty Start Date End Date Carol Akins PA-C [address] [place] [address] PCP - General Physician Parking Ramp Attendant 09/19/23 Rectifier Operator Relationship Specialty Start Date End Date Carol Akins PA-C [address] [place] [address] PCP - General Physician Parking Ramp Attendant 09/19/23 Rectifier Operator Relationship Specialty Start Date End Date Carol Akins PA-C [address] [place] [address] PCP - General Physician Parking Ramp Attendant 09/19/23 Rectifier Operator Relationship Specialty Start Date End Date Carol Akins PA-C [address] [place] [address] PCP - General Physician Parking Ramp Attendant 09/19/23 Rectifier Operator Relationship Specialty Start Date End Date Carol Akins PA-C [address] [place] [address] [id number] PCP - General Physician Parking Ramp Attendant 09/19/23 Rectifier Operator Relationship Specialty Start Date End Date Carol Akins PA-C [address] [place], [place] [id number] PCP - General Physician Parking Ramp Attendant 09/19/23 Reason for Visit (unrecogniz ed section and content) Specialty Diagnoses / Procedures Referred By Contac t Referred To Contact Diagnoses Acute kidney injury ([facility]) Acute kidney injury Case, Tanner Cordero MD [address] [place] [address] Referral ID Status Reason Start Date Expiration Date Visits Re quested Visits Authorized [id number] 1 1 Reason Onset Date Comments Hospital Follow-up 11/13/2023 2-4 week foll ow up Reason Onset Date Comments Hospital Follow-up 11/25/2023 Reason Onset Date Comments Clearance 12/10/2023 Reason Onset Date Comments Hospital Follow-up 12/18/2023 2-4 week F/U Reason Comments Atrial Fibrillation Specialty Diagnoses / Procedures Referred By Contac t Referred To Contact Diagnoses Atrial fibrillation with RVR ([facility]) Abnormal heart rate Chronic wound infection of abdomen, initial encounter Septic shock ([facility]) Pneumonia of right upper lobe due to infectious organism Elevated troponin Zuri Herrera MD [address] [address] Referral ID Status Reason Start Date Expiration Date Visits Re quested Visits Authorized [id number] 1 1 Scheduled Active and Recently Administ ered Medications (unrecognized section and content) Medication Order 10/03/2023 10/04/2023 10/05/2023 acetaZOLAMIDE (DIAMOX) 12 hr capsule 500 mg 500 mg, oral, 2 times daily, First dose on Sat10/04/23 at 1315, Look-alike/sound-alike medication - verify indication for use. Do not crush. 1707 (Given - Provider: Arash Hwang RN)2100 (Not Given - Provider: Jenny Bob, ALONDRA - Reason: Other - Comment: already given) 0920 (Given - Provider: Clementine Schulte RN)2100 (Due) bumetanide (BUMEX) tablet 2 mg (CANCELED) 2 mg, oral, 2 times daily before meals, First dose on Sat10/01/23 at 1600 0525 (Given - Provider: Jenny Bob RN)1611 (Given - Provider: Charlie Aleman, ALONDRA) 0602 (Given - Provider: Jenny Bob, ALONDRA) bumetanide (BUMEX) tablet 2 mg 2 mg, oral, 2 times daily before meals, First dose (after last modification) on Sat10/04/23 at 1600 1707 (Given - Provider: Arash Hwang RN) 0553 (Given - Provider: Jenny Bob, ALONDRA)1600 (Due) darbepoetin stefania-polysorbate (ARANESP) injection 100 mcg 100 mcg, subcutaneous, Weekly, First dose on Sat09/22/23 at 1200, Do not administer if the patient's hemoglobin is greater than 12 g/dl., Indications: anemia due to renal failure digoxin (LANOXIN) injection 250 mcg (COMPLETED) 250 mcg, intravenous, Once, On Sat10/03/23 at 1230, For 1 dose, Administer IVP slowly over at least 5 minutes. Look-alike/sound-alike medication - verify indication for use. 1226 (Given - Provider: Charlie Aleman RN) digoxin (LANOXIN) injection 250 mcg (COMPLETED) 250 mcg, intravenous, Once, On Linda 10/03/23 at 1630, For 1 dose, Administer IVP slowly over at least 5 minutes. Look-alike/sound-alike medication - verify indication for use. 1604 (Given - Provider: Charlie Aleman RN) folic acid (FOLVITE) tablet 1 mg 1 mg, oral, Daily, First dose on Sat09/25/23 at 0900, Look-alike/sound-alike medication - verify indication for use. 0845 (Given - Provider: Charlie Aleman RN) 1004 (Given - Provider: Arash Hwang RN) 0920 (Given - Provider: Clementine Schulte RN) insulin lispro (HumaLOG) injection 2-10 Units 2-10 Units, subcutaneous, 4 times daily with meals and nightly, First dose on Sat09/20/23 at 0800, Daytime hyperglycemia dosing. For blood glucose 151-200 mg/dL, give 2 units. For blood glucose 201-250 mg/dL, give 4 units. For blood glucose 251-300 mg/dL, give 6 units. For blood glucose 301-350 mg/dL, give 8 units. For blood glucose 351-400 mg/dL, give 10 units. Give even if NPO or meals skipped. Do NOT give more often then every 4 hours when NPO. Notify prescriber if blood glucose greater than 400 mg/dL. Look-alike/sound-alike medication - verify indication for use. Prime with 2 units of insulin prior to administration. Prandial/supplemental Insulin. Pre-filled pens stable 28 days at room temperature. Insulin lispro should be administered within 15 minutes before or immediately after a meal. 0800 (Not Given - Provider: Charlie Aleman RN - Reason: Order parameters not met)1200 (Not Given - Provider: Charlie Aleman RN - Reason: Order parameters not met - Comment: bg 138)1700 (Not Given - Provider: Charlie Aleman RN - Reason: Order parameters not met)2200 (Not Given - Provider: Jenny Bob RN - Reason: Order parameters not met) 0800 (Not Given - Provider: Arash Hwang RN - Reason: Order parameters not met)1200 (Not Given - Provider: Arash Hwang RN - Reason: Order parameters not met)1700 (Not Given - Provider: Arash Hwang RN - Reason: Order parameters not met)2200 (Not Given - Provider: Jenny Bob RN - Reason: Order parameters not met - Comment: pt didn't eat) 0800 (Not Given - Provider: Clementine Schulte RN - Reason: Order parameters not met)1200 (Not Given - Provider: Clementine Schulte RN - Reason: Order parameters not met)1700 (Due)2200 (Due) metOLazone (ZAROXOLYN) tablet 10 mg (COMPLETED) 10 mg, oral, Once, On Sat10/04/23 at 1300, For 1 dose, Look-alike/sound-alike medication - verify indication for use. 1356 (Given - Provider: Arash Hwang RN) metOLazone (ZAROXOLYN) tablet 2.5 mg 2.5 mg, oral, Weekly, First dose (after last modification) on Sat10/05/23 at 0900, Look-alike/sound-alike medication - verify indication for use. 0900 (Not Given - Provider: Clementine Schulte RN - Reason: Patient/family refused) metoprolol tartrate (LOPRESSOR) tablet 50 mg 50 mg, oral, 2 times daily, First dose on Sat09/24/23 at 0900, Look-alike/sound-alike medication - verify indication for use. 0845 (Given - Provider: Charlie Aleman, ALONDRA)2019 (Given - Provider: Jenny Bob RN) 1004 (Given - Provider: Arash Hwang RN)2014 (Given - Provider: Jenny Bob RN) 0944 (Given - Provider: Clementine Schulte RN - Comment: dr. schreiber gave verbal orders okay to give with bp 90/68)2100 (Due) midodrine (PROAMATINE) tablet 10 mg (CANCELED) 10 mg, oral, Every 6 hours, First dose (after last modification) on Sat10/01/23 at 2000, Hold for systolic greater than 130 once off all pressors Look-alike/sound-alike medication - verify indication for use. 0225 (Given - Provider: Jenny Bob RN)0844 (Given - Provider: Charlie Aleman RN)1309 (Given - Provider: Charlie Aleman RN)2019 (Given - Provider: Jenny Bob RN) 031 (Given - Provider: Jenny Bob RN)0835 (Given - Provider: Arash Hwang RN) midodrine (PROAMATINE) tablet 10 mg 10 mg, oral, 3 times daily, First dose (after last modification) on Sat10/04/23 at 1400, Hold for systolic greater than 130 once off all pressors Look-alike/sound-alike medication - verify indication for use. 1356 (Given - Provider: Arash Hwang, ALONDRA)2015 (Given - Provider: Jenny Bob RN) 0553 (Given - Provider: Jenny Bob RN)1455 (Given - Provider: Clementine Schulte RN)2200 (Due) pantoprazole (PROTONIX) EC tablet 40 mg 40 mg, oral, Every morning before breakfast, First dose on Sat09/26/23 at 0730, Look-alike/sound-alike medication - verify indication for use. If patient is receiving enteral feeding, consider alternative PPI or continue IV pantoprazole until the delayed-release tablet can be taken orally, Indication: Stress Ulcer Prophylaxis (Contraindication to H2RA) 0525 (Given - Provider: Jenny Bob RN) 0602 (Given - Provider: Jenny Bob RN) 0553 (Given - Provider: Jenny Bob RN) potassium chloride (K-TAB,KLOR-CON) CR tablet 20 mEq (CANCELED) 20 mEq, oral, 2 times daily, First dose (after last modification) on Sat10/01/23 at 2100, Hold for potassium more than 4.5 Do not crush or chew. 0900 (Hold - Provider: Charlie Aleman RN - Reason: Order parameters not met - Comment: gave PO oral pills PRN)1032 (Given - Provider: Charlie Aleman RN) potassium chloride (K-TAB,KLOR-CON) CR tablet 40 mEq (CANCELED) 40 mEq, oral, 2 times daily, First dose (after last modification) on Sat10/03/23 at 2100, Hold for potassium more than 4.5 Do not crush or chew. 2019 (Given - Provider: Jenny Bob RN) 0835 (Given - Provider: Arash Hwang, ALONDRA) potassium chloride (K-TAB,KLOR-CON) CR tablet 40 mEq 40 mEq, oral, 2 times daily, First dose (after last modification) on Sat10/04/23 at 1300, Hold for potassium more than 4.5 Do not crush or chew. 1300 (Not Given - Provider: Arash Hwang RN - Reason: Other - Comment: schedule change.)2015 (Given - Provider: Jenny Bob RN) 09 (Given - Provider: Clementine Schulte RN)2099 (Due) sennosides-docusate sodium (SENOKOT-S) 8.6-50 mg 2 tablet 2 tablet, oral, Nightly, First dose on Sat09/25/23 at 2200, Hold for loose stool 2100 (Not Given - Provider: Jenny Bob RN - Reason: Patient/family refused) 1999 (Not Given - Provider: Jenny Bob RN - Reason: Patient/family refused) 2200 (Due) sodium chloride 0.9 % flush 10 mL 10 mL, intravenous, Every 96 hours, First dose on 09/21/23 at 1115, Arterial Lumen. Aspirate lumen and discard volume THEN 0.9% Sodium Chloride 10 mL IVP THEN 4% sodium citrate (0.2 grams/5 mL) IVP equal to lumen volume every 96 hours. (Direct Care RN: flush and change caps every 96 hours) 1157 (Given - Provider: Charlie Aleman RN) sodium chloride 0.9 % flush 10 mL 10 mL, intravenous, Every 96 hours, First dose on 09/21/23 at 1115, Venous Lumen. Aspirate lumen and discard volume THEN 0.9% Sodium Chloride 10 mL IVP THEN 4% sodium citrate (0.2 grams/5 mL) IVP equal to lumen volume every 96 hours. (Direct Care RN: Flush and change caps every 96 hours) 1157 (Given - Provider: Charlie Aleman RN) sodium chloride 0.9 % flush 10 mL(Linked Group 1) 10 mL, intravenous, Every 8 hours, First dose on Sat09/24/23 at 0430, Pigtail Port of Non-cuffed Dialysis Catheter for IV use. Aspirate lumen and discard volume THEN 0.9% Sodium Chloride 10 mL IVP THEN 4% sodium citrate (0.2 grams/5 mL) IVP equal to lumen volume every 8 hours. 0600 (Given - Provider: Jenny Bob RN)1157 (Given - Provider: Charlie Aleman RN)2029 (Not Given - Provider: Jenny Bob RN - Reason: Loss of IV access - Comment: no central line) 0430 (Hold - Provider: Jenny Bob RN - Reason: Loss of IV access - Comment: no central line)1230 (Not Given - Provider: Arash Hwang RN - Reason: Other - Comment: no HD today)2029 (Hold - Provider: Jenny Bob RN - Reason: Loss of IV access) 0430 (Hold - Provider: Jenny Bob RN - Reason: Loss of IV access - Comment: no HD cath)1230 (Not Given - Provider: Clementine Schulte RN - Reason: Other - Comment: dialysis cath was dcd)2029 (Due) sodium chloride 0.9 % flush 3 mL 3 mL, intravenous, Every 12 hours, First dose on Sat09/20/23 at 1015 0845 (Given - Provider: Charlie Aleman RN)2019 (Given - Provider: Jenny Bob RN) 0835 (Given - Provider: Arash Hwang, ALONDRA)2016 (Given - Provider: Jenny Bob RN) 0921 (Given - Provider: Clementine Schulte, ALONDRA)2100 (Due - Provider: Varsha Amaya [facility]) sodium citrate 4 % (3 mL) flush 2 mL 2 mL, intravenous, Every 96 hours, First dose on 09/21/23 at 1115, Arterial Lumen. IVP equal to lumen volume, up to a maximum of 2 mL, every 96 hours. (Direct Care RN: flush and change caps every 96 hours) 1115 (Not Given - Provider: Charlie Aleman RN - Reason: Order parameters not met - Comment: kvo) sodium citrate 4 % (3 mL) flush 2 mL 2 mL, intravenous, Every 96 hours, First dose on 09/21/23 at 1115, Venous Lumen. IVP equal to lumen volume, up to a maximum of 2 mL, every 96 hours. (Direct Care RN: flush and change caps every 96 hours) 1115 (Not Given - Provider: Charlie Aleman RN - Reason: Order parameters not met - Comment: kvo) sodium citrate 4 % (3 mL) flush 2 mL(Linked Group 1) 2 mL, intravenous, Every 8 hours, First dose on Sat09/24/23 at 0430, Pigtail Port of Non-cuffed Dialysis Catheter for IV use. IVP equal to lumen volume, up to a maximum of 2 mL, every 8 hours. 0430 (Hold - Provider: Jenny Bbo RN - Reason: Order parameters not met)1230 (Canceled Entry - Provider: Charlie Aleman RN - Comment: kvo)2029 (Not Given - Provider: Jenny Bob RN - Reason: Loss of IV access - Comment: no central line) 0430 (Hold - Provider: Jenny Bob RN - Reason: Loss of IV access - Comment: no central line)1230 (Not Given - Provider: Arash Hwang RN - Reason: Other - Comment: no HD today)2029 (Hold - Provider: Jenny Bob RN - Reason: Loss of IV access) 0430 (Hold - Provider: Jenny Bob RN - Reason: Loss of IV access - Comment: no HD cath)1230 (Not Given - Provider: Clementine Schulte RN - Reason: Other - Comment: dialysis cath dcd)2029 (Due) Continuous Medication Order 10/03/2023 10/04/2023 10/05/2023 sodium chloride 0.9 % infusion 250 mL, hemodialysis, at 100 mL/hr, Continuous, Starting on Sat09/22/23 at 0000, as priming solution for hemodialysis tubing. PRN Medication Order 10/03/2023 10/04/2023 10/05/2023 calcium gluconate 3,000 mg in sodium chloride 0.9 % 100 mL IVPB(Linked Group 2) 3,000 mg, intravenous, at 130 mL/hr, Administer over 60 Minutes, As needed, for ionized calcium level less than 3 mg/dL, Starting on Sat09/30/23 at 0742, CALL PHYSICIAN if this dose is administered. Recheck ionized calcium 6 hours after infusion. Hold calcium replacement for phosphorus greater than 5.5 mg/dL. VESICANT (RED) calcium gluconate IVPB 1000 mg/50 mL (20 mg/mL premix)(Linked Group 2) 1,000 mg, intravenous, at 50 mL/hr, Administer over 60 Minutes, As needed, for ionized calcium level 3.5 to 4.4 mg/dL, Starting on Sat09/30/23 at 0742, Recheck ionized calcium 6 hours after infusion. Hold calcium replacement for phosphorus greater than 5.5 mg/dL. VESICANT (RED) calcium gluconate IVPB 2000 mg/100 mL (20 mg/mL premix)(Linked Group 2) 2,000 mg, intravenous, at 100 mL/hr, Administer over 60 Minutes, As needed, for ionized calcium level 3 to 3.4 mg/dL, Starting on Sat09/30/23 at 0742, Recheck ionized calcium 6 hours after infusion. Hold calcium replacement for phosphorus greater than 5.5 mg/dL. VESICANT (RED) dextrose (GLUTOSE) 40 % gel 15 g 15 g, oral, As needed, low blood sugar, blood glucose less than 70 mg/dL, Starting on Sat09/20/23 at 0656, If patient conscious and taking PO. If blood glucose is not greater than 70 mg/dL after initial treatment, repeat treatment. dextrose 5 % (D5W) infusion 100 mL/hr, intravenous, Continuous PRN, blood glucose less than 70 mg/dL, Starting on Sat09/20/23 at 0656, Use immediately following dextrose 50% or glucagon treatment for patients who are unconscious or NPO. Contact prescriber for additional orders. If blood glucose is not greater than 70 mg/dL after initial treatment, repeat treatment. dextrose 50 % in water (D50W) 50% solution 25 g(Linked Group 3) 25 g, intravenous, Once as needed, low blood sugar, as needed for Pre-insulin glucose level 150-250 mg/dL, Starting on Sat09/20/23 at 0901, For 1 dose, VESICANT (RED) Warning: HYPERTONIC solution. dextrose 50 % in water (D50W) 50% solution 25 mL 25 mL, intravenous, As needed, low blood sugar, blood glucose less than 70 mg/dL and unconscious or NPO with IV access, Starting on Sat09/20/23 at 0656, Push over 1-3 minutes STAT. If conscious and not NPO, immediately follow with meal tray or high protein (7 grams) snack if tray not available. If NPO, initiate 5% dextrose in water at 100 mL/hr and contact prescriber for additional orders. If blood glucose is not greater than 70 mg/dL after initial treatment, repeat treatment. VESICANT (RED) Warning: HYPERTONIC solution. dextrose 50 % in water (D50W) 50% solution 50 g(Linked Group 3) 50 g, intravenous, Once as needed, low blood sugar, as needed for Pre-insulin glucose level less than 150 mg/dL, Starting on Sat09/20/23 at 0901, For 1 dose, VESICANT (RED) Warning: HYPERTONIC solution. glucagon HCL injection 1 mg 1 mg, intramuscular, As needed, low blood sugar, blood glucose less than 70 mg/dL and unconscious or NPO without IV access., Starting on Sat09/20/23 at 0656, If conscious and not NPO, immediately follow with meal tray or high protein (7Grams) snack if tray not available. If NPO, initiate IV 5% Dextrose/Water at 100 mL/hr and contact prescriber for additional orders. If blood glucose is not greater than 70 mg/dL after initial treatment, repeat treatment. magnesium sulfate IVPB 2000 mg/50 mL in iso-osmotic water (40 mg/mL premix)(Linked Group 4) 2,000 mg, intravenous, at 25 mL/hr, Administer over 120 Minutes, As needed, for magnesium level 1.7 to 1.9 mg/dL or ionized magnesium level 0.45 to 0.5 mmol/L, Starting on Sat09/30/23 at 0742, Use premix solution. Default to ionized magnesium level in cases where patient has both magnesium and ionized magnesium results. If administered, check ionized magnesium (or total magnesium if ionized magnesium unavailable) level 4 hours after infusion. magnesium sulfate IVPB 4000 mg/100 mL in iso-osmotic water (40 mg/mL premix)(Linked Group 4) 4,000 mg, intravenous, at 25 mL/hr, Administer over 240 Minutes, As needed, for magnesium level 1.6 mg/mL or less, or ionized magnesium level 0.44 mmol/L or less, Starting on Sat09/30/23 at 0742, Use premix solution. Default to ionized magnesium level in cases where patient has both magnesium and ionized magnesium results. If administered, check ionized magnesium (or total magnesium if ionized magnesium unavailable) level 4 hours after infusion. metoprolol (LOPRESSOR) injection 5 mg 5 mg, intravenous, Every 6 hours PRN, HR greater than 120, Starting on Sat09/25/23 at 0824, Hold for systolic under 90 Look-alike/sound-alike medication - verify indication for use. midodrine (PROAMATINE) tablet 10 mg 10 mg, oral, As needed, up to 3 doses during hemodialysis for sbp <100, Starting on Sat09/22/23 at 0912, Look-alike/sound-alike medication - verify indication for use. potassium chloride (K-TAB,KLOR-CON) CR tablet 20-50 mEq(Linked Group 5) 20-50 mEq, oral, As needed, for potassium replacement, Starting on Sat09/30/23 at 0742, Progress to oral potassium replacement when patient tolerating oral intake. If dose administered, recheck potassium level 4 hours after last dose. For potassium level 3.4 to 3.8 mmol/L and Serum Creatinine 1.2 or less=30 mEq. For potassium level 3.1 to 3.3 mmol/L and Serum Creatinine 1.2 or less=40 mEq. For potassium level 3 mmol/L or less and Serum Creatinine 1.2 or less=50 mEq. For potassium level 3.4 to 3.8 mmol/L and Serum Creatinine greater than 1.2=20 mEq. For potassium level 3.1 to 3.3 mmol/L and Serum Creatinine greater than 1.2=30 mEq. For potassium level 3 mmol/L or less and Serum Creatinine greater than 1.2=40 mEq. Do not crush or chew. 0628 (Given - Provider: Jenny Bob RN - Comment: cr >1.2) 0944 (Given - Provider: Clementine Schulte RN - Comment: dr. schreiber gave verbal orders to given the scheduled 40meq and only 20meq from sliding scale at this time.) potassium chloride (KAYCIEL) 20 mEq/15 mL solution 20-50 mEq(Linked Group 5) 20-50 mEq, oral, As needed, potassium replacement, Starting on Sat09/30/23 at 0742, Progress to oral potassium replacement when patient tolerating oral intake. If dose administered, recheck potassium level 4 hours after last dose. For potassium level 3.4 to 3.8 mmol/L and Serum Creatinine 1.2 or less=30 mEq (22.5mL). For potassium level 3.1 to 3.3 mmol/L and Serum Creatinine 1.2 or less=40 mEq (30mL). For potassium level 3 mmol/L or less and Serum Creatinine 1.2 or less=50 mEq (37.5mL). For potassium level 3.4 to 3.8 mmol/L and Serum Creatinine greater than 1.2=20 mEq (15mL). For potassium level 3.1 to 3.3 mmol/L and Serum Creatinine greater than 1.2=30 mEq (22.5mL). For potassium level 3 mmol/L or less and Serum Creatinine greater than 1.2=40 mEq (30mL). Must dilute before use - Mix in 3-8 ounces of water or juice before administration When administering in feeding tube, flush before and after per policy and monitor potassium levels 0628 (See Alternative - Provider: Jenny Bob, ALONDRA) 0944 (See Alternative - Provider: Clementine Schulte RN) potassium chloride IVPB 10 mEq/100 mL in water (0.1 mEq/mL premix)(Linked Group 6) 10 mEq, intravenous, at 100 mL/hr, Administer over 60 Minutes, As needed, for potassium replacement, Starting on Sat09/30/23 at 0742, Administer Potassium Chloride IVPB in 10 mEq increments. Maximum infusion rates: Central Line = 20 mEq/hour; Peripheral Line = 10 mEq/hour (10 mEq/100 mL). If dose administered, recheck potassium level 1 hour after infusion complete. For potassium level 3.4 to 3.8 mmol/L and Serum Creatinine 1.2 or less = 30 mEq For potassium level 3.1 to 3.3 mmol/L and Serum Creatinine 1.2 or less = 40 mEq For potassium level 3 mmol/L or less and Serum Creatinine 1.2 or less = 50 mEq For potassium level 3.4 to 3.8 mmol/L and Serum Creatinine greater than 1.2 = 20 mEq For potassium level 3.1 to 3.3 mmol/L and Serum Creatinine greater than 1.2 = 30 mEq For potassium level 3 mmol/L or less and Serum Creatinine greater than 1.2 = 40 mEq VESICANT (YELLOW) Infuse each 10 mEq over a minimum of 1 hour. potassium chloride IVPB 10 mEq/50 mL in water (0.2 mEq/mL premix)(Linked Group 6) 10 mEq, intravenous, at 50 mL/hr, Administer over 1 Hours, As needed, for potassium replacement, Starting on Sat09/30/23 at 0742, Administer Potassium Chloride IVPB in 10 mEq increments. Maximum infusion rates: Central Line = 20 mEq/hour. Administer via Central Line Only. If dose administered, recheck potassium level 1 hour after infusion complete. For potassium level 3.4 to 3.8 mmol/L and Serum Creatinine 1.2 or less = 30 mEq For potassium level 3.1 to 3.3 mmol/L and Serum Creatinine 1.2 or less = 40 mEq For potassium level 3 mmol/L or less and Serum Creatinine 1.2 or less = 50 mEq For potassium level 3.4 to 3.8 mmol/L and Serum Creatinine greater than 1.2 = 20 mEq For potassium level 3.1 to 3.3 mmol/L and Serum Creatinine greater than 1.2 = 30 mEq For potassium level 3 mmol/L or less and Serum Creatinine greater than 1.2 = 40 mEq VESICANT (YELLOW) sod phos di, mono-K phos mono (K-PHOS NEUTRAL) 250 mg tablet 2 tablet(Linked Group 7) 2 tablet, oral, As needed, for phosphorous level 2.3 mg/dL or less, Starting on Sat09/30/23 at 0742, If dose administered, recheck phosphorus level 4 hours after last dose. Look-alike/sound-alike medication - verify indication for use. Give with a full glass of water. sodium chloride 0.9 % flush 10 mL 10 mL, intravenous, As needed, line care, Starting on 09/21/23 at 1111, Arterial Lumen. Before use aspirate lumen and discard lumen volume THEN 0.9% Sodium Chloride 10 mL IVP. (casing builder: flush at beginning of each hemodialysis treatment). sodium chloride 0.9 % flush 10 mL 10 mL, intravenous, As needed, line care, Starting on 09/21/23 at 1111, Arterial Lumen. 0.9% Sodium Chloride 10 mL IVP THEN 4% sodium citrate (0.2 grams/5 mL) IVP equal to lumen volume after use. (casing builder: flush and change caps after each hemodialysis treatment) sodium chloride 0.9 % flush 10 mL 10 mL, intravenous, As needed, line care, Starting on 09/21/23 at 1111, Venous Lumen. Before use aspirate lumen and discard lumen volume THEN 0.9% Sodium Chloride 10 mL IVP. (casing builder: flush at beginning of each hemodialysis treatment) sodium chloride 0.9 % flush 10 mL 10 mL, intravenous, As needed, line care, Starting on 09/21/23 at 1111, Venous Lumen. 0.9% Sodium Chloride 10 mL IVP THEN 4% sodium citrate (0.2 grams/5 mL) IVP equal to lumen volume after use. (casing builder: flush and change caps after each hemodialysis treatment) sodium chloride 0.9 % flush 10 mL(Linked Group 1) 10 mL, intravenous, As needed, line care, Starting on Sat09/24/23 at 0419, Pigtail Port of Non-cuffed Dialysis Catheter for IV use. Before use aspirate lumen and discard lumen volume THEN 0.9% Sodium Chloride 10 mL IVP. sodium chloride 0.9 % flush 10 mL(Linked Group 1) 10 mL, intravenous, As needed, line care, Starting on Sat09/24/23 at 0419, Pigtail Port of Non-cuffed Dialysis Catheter for IV use. 0.9% Sodium Chloride 10 mL IVP THEN 0.4% sodium citrate (0.2 grams/5 mL) IVP equal to lumen volume after use. sodium chloride 0.9 % infusion 10 mL/hr, intravenous, Continuous PRN, to maintain patency of lines, Starting on Sat09/20/23 at 0656, Line #1 sodium chloride 0.9 % infusion 10 mL/hr, intravenous, Continuous PRN, to maintain patency of lines, Starting on Sat09/20/23 at 0656, Line #2 sodium chloride 0.9 % infusion 10 mL/hr, intravenous, Continuous PRN, to maintain patency of lines, Starting on Sat09/20/23 at 0656, Line #3 sodium chloride 0.9 % infusion 20 mL/hr, intravenous, Continuous PRN, to maintain patency of lines, Starting on Sat09/20/23 at 1010 0853 (New Bag - Provider: Charlie Aleman RN) sodium citrate 4 % (3 mL) flush 2 mL 2 mL, intravenous, As needed, line care, Starting on 09/21/23 at 1111, Arterial Lumen. IVP equal to lumen volume, up to a maximum of 2 mL, after use. (casing builder: flush and change caps after each hemodialysis treatment) sodium citrate 4 % (3 mL) flush 2 mL 2 mL, intravenous, As needed, line care, Starting on 09/21/23 at 1111, Venous Lumen. IVP equal to lumen volume, up to a maximum of 2 mL, after use. (casing builder: flush and change caps after each hemodialysis treatment) sodium citrate 4 % (3 mL) flush 2 mL(Linked Group 1) 2 mL, intravenous, As needed, line care, Starting on Sat09/24/23 at 0419, Pigtail Port of Non-cuffed Dialysis Catheter for IV use. IVP equal to lumen volume, up to a maximum of 2 mL, after use. sodium phosphate 20 mmol in sodium chloride 0.9 % 100 mL IVPB(Linked Group 7) 20 mmol, intravenous, at 26.7 mL/hr, Administer over 4 Hours, As needed, for phosphorous level 2.3 mg/dL or less, Starting on Sat09/30/23 at 0742, Administer over 4 hours via dedicated line(central line). If administered, recheck phosphorus level 4 hours after infusion complete. Infuse using central line access. sodium phosphate 20 mmol in sodium chloride 0.9 % 250 mL IVPB(Linked Group 7) 20 mmol, intravenous, at 42.8 mL/hr, Administer over 6 Hours, As needed, for phosphorous level 2.3 mg/dL or less, Starting on Sat09/30/23 at 0742, Administer over 6 hours via dedicated line (peripheral line). If administered, recheck phosphorus level 4 hours after infusion complete. Scheduled Medication Order 12/27/2023 12/28/2023 12/29/2023 aspirin EC tablet 81 mg 81 mg, oral, Daily, First dose on Sat12/24/23 at 0900, Do not crush or chew. 1152 (Given - Provider: Lucy Solomon RN) 1008 (Given - Provider: Yareli Ny RN) 0900 (Due) atorvastatin (LIPITOR) tablet 20 mg 20 mg, oral, Nightly, First dose on Sat12/23/23 at 2200, Look-alike/sound-alike medication - verify indication for use. 2109 (Not Given - Provider: Lyn Angela RN - Reason: Other - Comment: pt to drowsy from ativan earlier) 2313 (Given - Provider: Lyn Angela, RN) 2199 (Due) doxycycline (VIBRAMYCIN) capsule 100 mg 100 mg, oral, 2 times daily, First dose on Sat12/27/23 at 0900, For 30 days, May give with meals to decrease GI upset. Administer with at least 8 ounces of water and have patient sit up for at least 30 minutes after taking to reduce the risk of esophageal irritation and ulceration., Indication: Osteoarticular 1152 (Given - Provider: Lucy Solomon RN)2109 (Not Given - Provider: Lyn Angela RN - Reason: Other - Comment: pt to drowsy from ativan earlier unsafe to swallow pills at this time) 1008 (Given - Provider: Yareli Ny RN)2313 (Given - Provider: Lyn Angela, RN) 899 (Due)2099 (Due) metoprolol (LOPRESSOR) injection 5 mg (COMPLETED) 5 mg, intravenous, Once, On Linda 12/26/23 at 1215, For 1 dose, Administer right before patient go down for the CTA Coronary Arteries. Look-alike/sound-alike medication - verify indication for use. 09 (Given - Provider: Lucy Solomon, ALONDRA) metoprolol tartrate (LOPRESSOR) tablet 100 mg 100 mg, oral, 2 times daily, First dose (after last modification) on Linda 12/26/23 at 2100, Look-alike/sound-alike medication - verify indication for use. 1152 (Given - Provider: Lucy Solomon RN)2109 (Not Given - Provider: Lyn Angela, ALONDRA - Reason: Other - Comment: pt unable to swallow pills at this time to drosy from earlier medication) 1008 (Given - Provider: Yareli Ny RN)2313 (Given - Provider: Lyn Angela, RN) 0900 (Due)2100 (Due) pantoprazole (PROTONIX) EC tablet 40 mg 40 mg, oral, Every morning before breakfast, First dose on Sat12/23/23 at 0700, Look-alike/sound-alike medication - verify indication for use. If patient is receiving enteral feeding, consider alternative PPI or continue IV pantoprazole until the delayed-release tablet can be taken orally, Indication: GERD 0615 (Given - Provider: Deborah Estrella, RN) 0546 (Given - Provider: Lyn Angela, RN) 0700 (Due) sodium hypochlorite (DAKIN'S 1/4 STRENGTH) 0.125 % external solution 1 Application 1 Application, topical, 2 times daily, First dose on Sat12/23/23 at 2100 0900 (Hold - Provider: Lucy Solomon, ALONDRA - Reason: Other - Comment: wound care to put wound vac on later today) 0546 (Given - Provider: Lyn Angela, ALONDRA - Comment: previous dressing done at 6pm to early to change)1704 (Given - Provider: Yareli Ny, RN)2326 (Given - Provider: Lyn Angela, RN) 0900 (Due)2100 (Due) Continuous Medication Order 12/27/2023 12/28/2023 12/29/2023 dextrose 5 % in water 1,000 mL with potassium chloride 40 mEq, sodium bicarbonate 8.4 % (1 mEq/mL) 50 mEq infusion (CANCELED) 75 mL/hr, intravenous, Continuous, Starting on Sat12/24/23 at 0830 0638 (Rate/Dose Verify - Provider: Deborah Estrella RN)1133 (New Bag - Provider: Lucy Solomon, ALONDRA) 0058 (New Bag - Provider: Lyn Angela, RN)1530 (Stop Bag - Provider: Yareli Ny, ALONDRA) PRN Medication Order 12/27/2023 12/28/2023 12/29/2023 acetaminophen (TYLENOL EXTRA STRENGTH) tablet 500 mg 500 mg, oral, Every 6 hours PRN, mild pain - pain scale 1-3, moderate pain - pain scale 4-6, Starting on Sat12/22/23 at 1748, Indications: fever, headache disorder, pain 0055 (Given - Provider: Lyn Angela, RN) ALPRAZolam (XANAX) tablet 0.5 mg (COMPLETED) 0.5 mg, oral, Once as needed, anxiety, Give 30 minutes before MRI., Starting on Sat12/26/23 at 1010, For 1 dose, Look-alike/sound-alike medication - verify indication for use. 1010 (Given - Provider: Lucy Solomon RN) calcium gluconate 3,000 mg in sodium chloride 0.9 % 100 mL IVPB 3,000 mg, intravenous, at 43.3 mL/hr, Administer over 3 Hours, As needed, ionized calcium 3.5 to 3.9 mg/dL, Starting on Sat12/24/23 at 0729, IV Administration of calcium via a central or deep vein preferred. Avoid administration in small hand veins VESICANT (RED) calcium gluconate 4,000 mg in sodium chloride 0.9 % 250 mL IVPB 4,000 mg, intravenous, at 72.5 mL/hr, Administer over 4 Hours, As needed, ionized calcium 3.4 mg/dL or less, Starting on Sat12/24/23 at 0729, IV administration of calcium via a central or deep vein is preferred. Avoid administration in small hand veins. VESICANT (RED) calcium gluconate IVPB 2000 mg/100 mL (20 mg/mL premix) 2,000 mg, intravenous, at 50 mL/hr, Administer over 2 Hours, As needed, ionized calcium 4 to 4.3 mg/dL, Starting on Sat12/24/23 at 0729, IV Administration of calcium via a central or deep vein preferred. Avoid administration in small hand veins VESICANT (RED) dextrose (GLUTOSE) 40 % gel 15 g 15 g, oral, As needed, low blood sugar, blood glucose less than 70 mg/dL, Starting on Sat12/22/23 at 1753, If patient conscious and taking PO. If blood glucose is not greater than 70 mg/dL after initial treatment, repeat treatment. dextrose 5 % (D5W) infusion 100 mL/hr, intravenous, Continuous PRN, blood glucose less than 70 mg/dL, Starting on Sat12/22/23 at 1753, Use immediately following dextrose 50% or glucagon treatment for patients who are unconscious or NPO. Contact prescriber for additional orders. If blood glucose is not greater than 70 mg/dL after initial treatment, repeat treatment. dextrose 50 % in water (D50W) 50% solution 25 mL 25 mL, intravenous, As needed, low blood sugar, blood glucose less than 70 mg/dL and unconscious or NPO with IV access, Starting on 12/22/23 at 1753, Push over 1-3 minutes STAT. If conscious and not NPO, immediately follow with meal tray or high protein (7 grams) snack if tray not available. If NPO, initiate 5% dextrose in water at 100 mL/hr and contact prescriber for additional orders. If blood glucose is not greater than 70 mg/dL after initial treatment, repeat treatment. VESICANT (RED) Warning: HYPERTONIC solution. gadoteridoL (PROHANCE) injection 10 mmol 20 mL (COMPLETED) 10 mmol (rounded from 11.77 mmol = 0.1 mmol/kg 117.7 kg), intravenous, Once in imaging, contrast, MRI, Starting on Sat12/27/23 at 1520, For 1 dose, Additional Imaging Orders, VESICANT (RED), Indications: magnetic resonance imaging 1544 (Given - Provider: KAVON Mendez) glucagon HCL injection 1 mg 1 mg, intramuscular, As needed, low blood sugar, blood glucose less than 70 mg/dL and unconscious or NPO without IV access., Starting on Sat12/22/23 at 1753, If conscious and not NPO, immediately follow with meal tray or high protein (7Grams) snack if tray not available. If NPO, initiate IV 5% Dextrose/Water at 100 mL/hr and contact prescriber for additional orders. If blood glucose is not greater than 70 mg/dL after initial treatment, repeat treatment. HYDROcodone-acetaminophen (NORCO) 5-325 mg per tablet 1 tablet (COMPLETED) 1 tablet, oral, Once as needed, severe pain - pain scale 7-10, Starting on Sat12/28/23 at 0315, For 1 dose, Look-alike/sound-alike medication - verify indication for use. 0322 (Given - Provider: Lyn Angela RN) iohexoL (OMNIPAQUE) 300 mg iodine/mL 125 mL 125 mL, intravenous, Once in imaging, contrast, Starting on 12/22/23 at 1424, For 1 dose, Additional Imaging Orders, VESICANT (RED) levalbuterol (XOPENEX) nebulizer solution 1.25 mg 1.25 mg, nebulization, Every 4 hours PRN, wheezing, Starting on Sat12/23/23 at 1347, Ordered in place of albuterol due to: arrhythmia, tachycardia, Implement INPATIENT/ED Bronchodilator Clinical Practice Guidelines? Yes, Document: [email or web address] IC_Reference\Orders\Respirat ory Care Guidelines\CPG Bronchodilator 2019.pdf LORazepam (ATIVAN) injection 2 mg (COMPLETED) 2 mg, intravenous, Once as needed, anxiety, Starting on Sat12/27/23 at 1048, For 1 dose, Look-alike/sound-alike medication - verify indication for use;IV use requires increased monitoring of HR,BP,Respirations and Pulse Oximetry;For IV-dilute with equal volume PF sod chloride, Indication: Other, Indication: give 15 minutes before MRI 1404 (Given - Provider: Lucy Solomon RN) magnesium sulfate IVPB 2000 mg/50 mL in iso-osmotic water (40 mg/mL premix) 2,000 mg, intravenous, at 25 mL/hr, Administer over 120 Minutes, As needed, Magnesium level 1.7 to 1.9 mg/dL, or Ionized Magnesium level 0.45 to 0.5 mmol/L., Starting on Sat12/22/23 at 1722, Recheck magnesium level 4 hours after infusion complete. With each magnesium result continue the replacement orders as needed. magnesium sulfate IVPB 4000 mg/100 mL in iso-osmotic water (40 mg/mL premix) 4,000 mg, intravenous, at 25 mL/hr, Administer over 240 Minutes, As needed, Magnesium level 1.6 mg/dL or less, or Ionized Magnesium level 0.44 mmol/L or less, Starting on Sat12/22/23 at 1722, Recheck magnesium level 4 hours after infusion complete. With each magnesium result continue the replacement orders as needed. metoprolol (LOPRESSOR) injection 5 mg 5 mg, intravenous, Every 6 hours PRN, for HR >130 if SBP >110, Starting on Sat12/23/23 at 1517, Look-alike/sound-alike medication - verify indication for use. ondansetron (PF) (ZOFRAN) injection 4 mg 4 mg, intravenous, Every 6 hours PRN, nausea, vomiting, Starting on Sat12/22/23 at 1748, Administer over 2-5 minutes. 1742 (Given - Provider: Yareli Ny RN) potassium chloride (K-TAB,KLOR-CON) CR tablet 40 mEq(Linked Group 1) 40 mEq, oral, As needed, potassium supplementation, Starting on Sat12/22/23 at 1722, Progress to oral potassium replacement when patient tolerating oral intake. If dose administered, recheck potassium level 4 hours after last dose. For potassium level 3.4 to 3.8 mmol/L and GFR 30 mL/min or greater=30 mEq. For potassium level 3.1 to 3.3 mmol/L and GFR 30 mL/min or greater=40 mEq. For potassium level 3 mmol/L or less and GFR 30 mL/min or greater=50 mEq. Do not crush or chew. potassium chloride (KAYCIEL) 20 mEq/15 mL solution 30-50 mEq(Linked Group 1) 30-50 mEq, oral, As needed, potassium supplementation, Starting on Sat12/22/23 at 1722, Progress to oral potassium replacement when patient tolerating oral intake. If dose administered, recheck potassium level 4 hours after last dose. For potassium level 3.4 to 3.8 mmol/L and GFR 30 mL/min or greater=30 mEq. For potassium level 3.1 to 3.3 mmol/L and GFR 30 mL/min or greater=40 mEq. For potassium level 3 mmol/L or less and GFR 30 mL/min or greater=50 mEq. Must dilute before use - Mix in 3-8 ounces of water or juice before administration When administering in feeding tube, flush before and after per policy and monitor potassium levels sodium chloride 0.9 % flush 10 mL 10 mL, intravenous, Once in imaging, line care, Starting on Sat12/22/23 at 1424, For 1 dose, Additional Imaging Orders sodium chloride 0.9 % flush 10 mL (COMPLETED) 10 mL, intravenous, Once in imaging, line care, MRI, Starting on Sat12/27/23 at 1520, For 1 dose, Additional Imaging Orders 1544 (Given - Provider: KAVON Mendez) sodium chloride 0.9 % flush bag 25 mL, intravenous, at 100 mL/hr, Administer over 15 Minutes, As needed, line care, line care after IVPB administration, Starting on Sat12/22/23 at 1559 sodium chloride 0.9 % infusion 20 mL/hr, intravenous, Continuous PRN, to maintain patency of lines, Starting on [place] 12/22/23 at 1559 sodium chloride 0.9 % radiology injection 80 mL, intravenous, Once in imaging, pre/post contrast, Starting on [place] 12/22/23 at 1424, For 1 dose, Additional Imaging Orders Linked Groups Order Group 1: potassium chloride (K-TAB,KLOR-CON) CR tablet 40 mEqJump to med 40 mEq, oral, As needed, potassium supplementation, Starting on [place] 12/22/23 at 1722, Progress to oral potassium replacement when patient tolerating oral intake. If dose administered, recheck potassium level 4 hours after last dose. For potassium level 3.4 to 3.8 mmol/L and GFR 30 mL/min or greater=30 mEq. For potassium level 3.1 to 3.3 mmol/L and GFR 30 mL/min or greater=40 mEq. For potassium level 3 mmol/L or less and GFR 30 mL/min or greater=50 mEq. Do not crush or chew. Or potassium chloride (KAYCIEL) 20 mEq/15 mL solution 30-50 mEqJump to med 30-50 mEq, oral, As needed, potassium supplementation, Starting on [place] 12/22/23 at 1722, Progress to oral potassium replacement when patient tolerating oral intake. If dose administered, recheck potassium level 4 hours after last dose. For potassium level 3.4 to 3.8 mmol/L and GFR 30 mL/min or greater=30 mEq. For potassium level 3.1 to 3.3 mmol/L and GFR 30 mL/min or greater=40 mEq. For potassium level 3 mmol/L or less and GFR 30 mL/min or greater=50 mEq. Must dilute before use - Mix in 3-8 ounces of water or juice before administration When administering in feeding tube, flush before and after per policy and monitor potassium levels Dialysis Access Sites (unrec ognized section and content) Type Status Location Placement Date Removal Da te Hemodialysis Catheter Triple 09/21/23 Right Internal Jugular Inactive Right Neck (side) - Anterior 09/21/2023 10/03/2023 INFORMATION SOURCE (unrecogn ized section and content) DATE CREATED AUTHOR 10/27/2023 [facility] DATE CREATED AUTHOR AUTHOR'S ORGANIZ ATION 01/02/2024 [facility] DATE CREATED AUTHOR AUTHOR'S ORGANIZ ATION 02/18/2024 [facility] FOR RECORDS PERTAINING TO PATIENTS WHO ARE OR HAVE BEEN ENROLLED IN A CHEMICAL DEPENDENCY/SUBSTANCEABUSE PROGRAM, SOME INFORMATION MAY BE OMITTED. This clinical summary was aggregated from multiple sources. Caution should be exercised in using it in the provision of clinical care. This summary normalizes information from multiple sources, and as a consequence, information in this document may materially change the coding, format and clinical context of patient data. In addition, data may be omitted in some cases. CLINICAL DECISIONS SHOULD BE BASED ON THE PRIMARY CLINICAL RECORDS. [facility]. provides no warranty or guarantee of the accuracy or completeness of information in this document.
[2024-02-24 16:20] LABS: Adenovirus NOT DETECTED (NOT DETECTE); Bordetella parapertussis NOT DETECTED (NOT DETECTE); Coronavirus 229E NOT DETECTED (NOT DETECTE); Coronavirus HKU1 NOT DETECTED (NOT DETECTE); Coronavirus NL63 NOT DETECTED (NOT DETECTE); Coronavirus OC43 NOT DETECTED (NOT DETECTE); Human Metapneumovirus NOT DETECTED (NOT DETECTE); Human Rhinovirus/Enterovirus NOT DETECTED (NOT DETECTE); Influenza A NOT DETECTED (NOT DETECTE); Influenza B NOT DETECTED (NOT DETECTE); Mycoplasma pneumoniae NOT DETECTED (NOT DETECTE); Parainfluenza Virus 1 NOT DETECTED (NOT DETECTE); Parainfluenza Virus 2 NOT DETECTED (NOT DETECTE); Parainfluenza Virus 3 NOT DETECTED (NOT DETECTE); Parainfluenza Virus 4 NOT DETECTED (NOT DETECTE); Respiratory Syncytial Virus NOT DETECTED (NOT DETECTE); SARS-CoV-2 NOT DETECTED (NOT DETECTE)
[2024-02-24 16:21] LABS: Basophils Percent Auto 0.2 % (0.2-2.0); Eosinophils Absolute Auto 0.1 10^3/uL (0.0-0.7); Eosinophils Percent Auto 0.9 % (0.9-7.0); Hematocrit 26.9 % (36.0-48.0); Hemoglobin 8.1 g/dL (12.0-16.0); Immature Granulocytes Abs Auto 0.05 10^3/uL (0.00-0.03); Immature Granulocytes Pct Auto 0.4 % (0.0-0.5); Lymphocytes Absolute Auto 1.6 10^3/uL (1.2-3.8); Lymphocytes Percent Auto 12.7 % (20.5-60.0); Mean Corpuscular HGB Conc 30.1 g/dL (29.9-35.2); Mean Corpuscular Hemoglobin 29.2 pg (26.7-34.0); Mean Corpuscular Volume 97.1 fL (81.0-99.0); Mean Platelet Volume 11.3 fL (9.5-13.5); Monocytes Absolute Auto 1.1 10^3/uL (0.3-0.8); Monocytes Percent Auto 8.7 % (1.7-12.0); Neutrophils Absolute Auto 9.7 10^3/uL (1.4-6.5); Neutrophils Percent Auto 77.1 % (43.0-75.0); Platelet Count 132 10^3/uL (150-450); Red Blood Count 2.77 10^6/uL (4.20-5.40); Red Cell Distribution Width 16.6 % (11.0-15.0); White Blood Count 12.6 10^3/uL (4.0-11.0)
[2024-02-24 16:22] LABS: PCO2 VBG 39.2 mmHg (40.0-52.0); pH VBG 7.434 (7.330-7.430)
[2024-02-24] MEDS: 0.9 % SODIUM CHLORIDE 1,000 ML 1000 ML IV (16:28)
[2024-02-24] MEDS: DILTIAZEM HCL 25 MG/5 ML VIAL 10 MG IV (16:29)
[2024-02-24 16:37] LABS: INR 1.14; Prothrombin Time 11.9 sec (9.0-11.6)
[2024-02-24 16:51] LABS: Thyroid Stimulating Hormone 3.868 uIU/mL (0.358-3.740)
[2024-02-24 16:53] LABS: Alanine Aminotransferase 16 U/L (14-59); Albumin Globulin Ratio 0.6; Albumin Level 2.5 g/dL (3.4-5.0); Alkaline Phosphatase 169 U/L (46-116); Anion Gap 13.9; Aspartate Amino Transferase 28 U/L (15-37); BUN Creatinine Ratio 16.7; Bilirubin Total 0.8 mg/dL (0.2-1.0); Carbon Dioxide 26.6 mmol/L (21.0-32.0); Chloride 103 mmol/L (98-107); Estimated GFR (African America 37 (>=60); Estimated GFR (Non-African Ame 30 (>=60); Globulin 4.4 g/dL; Glucose 76 mg/dL (74-106); Potassium 4.5 mmol/L (3.5-5.1); Sodium 139 mmol/L (136-145); Total Protein 6.9 g/dL (6.4-8.2); Troponin I High Sensitivity 28.3 pg/mL (4.0-51.3)
[2024-02-24] MEDS: dilTIAZem HCL 125 MG in 0.9 % SODIUM CHLORIDE 100 ML IV (17:03)
[2024-02-24 17:06] LABS: PROCALCITONIN 0.14 ng/mL (0.00-0.50)
[2024-02-24] MEDS: ENOXAPARIN SODIUM 100 MG/ML SYRINGE SUBQ (19:35)
--- OUTSIDE RECORDS SUMMARY | 2024-02-24 20:22 | XMS_ITS | CCD ---
Author Organization [facility] Care Team Providers Care Hydrometeorologist Name Role Phone Carol Akins PA-C Primary Care Provider CAROL AKINS Primary Care Unavailable JUAN LOPEZ Attending Unavailable BELA GUZMÁN Consulting Unavailable EMILIANO URIBE Admitting Unavailable ONLY), [facility] WOUND CARE SERVICES (INPATIENT Consult ing Unavailable DIVISION OF INFECTIOUS DISEASE, [facility] Consulting Unavailable CARDIOLOGY, [facility] PH[facility]IC[facility] Consulting Unavailable [...] Unavailable Carol Akins PA-C Primary Care Provider TANNER HARRIS Attending Unavailable TANNER HARRIS Referring [...] Unavailable AKINS, CAROL A Primary Care Unavailable SOY TALAMANTES Attending Unavailable VINITA, SOY R Referring [...] Care Unavailable ULISSES SILVER Attending Unavailable ULISSES SILVER Referring Unavailable AKINS, CAROL A Primary Care [...] Unavailable ANTON, DILLON U Attending Unavailable ANTON, DILOLN U Referring Unavailable AKINS, CAROL A Primary [...] Care Unavailable JAIME DAVIS IV Referring Unavailable AKINS, CAROL A Primary Care [...] VIDHIT Attending Unavailable MIGUEL, VIDHIT Referring Unavailable FRIAD, CAROL A Primary Care Unavailable GREER LEGGETT [...] RUELAS Consulting Unavailable DIVISION OF INFECTIOUS DISEASE, [facility] Consulting Unavailable CARDIOLOGY, [facility] Consulting Unavailable RONNIE FITZGERALD Consulting Unavailable SPECIALISTS, [facility] Consulting Unavailable MEDICINE, [facility] Consulting U ZACK Buchanan Consulting Unavailable RONY, MUHAMID M Referring Unavailable CAROL AKINS Primary Care Unavailable SALBADOR DUTTON Referring Unavailable CAROL AKINS Primary Care Unavailable SALBADOR DUTTON Referring Unavailable CAROL AKINS Primary Care Unavailable BRANDON CARRILLO Referring Unavailable CAROL AKNIS Primary Care Unavailable Allergies Allergy Classification Reported Allergen(s) Allergy Type Date of Onset Reaction(s) Facility (8 sources) Oats preparation; Translations: [OATS] Drug Allergy 12-01-2023 [facility] Medications Current Medications Medication Drug Class(es) [...] failure docusate sodium 50 mg / sennosides, fci 8.6 mg oral tablet (1 source) Start: 09-25-2023 2 tablet, oral, Nightly, First dose on Sat09/25/23 at 2200, Hold for loose stool fat cjxb-nbo-jtb-kay v-fish oil, SMOFLIPID, 20 % emulsion infusion (5 sources) Start: 12-04-2023 fat imsh-epd-glm-oliv- fish oil, SMOFLIPID, 20 % emulsion infusion [...] at 1 340, For 1 dose, Ana Menrad: cabinet override VESICANT (RED) Warning: HYPERTONIC solution. [...] a maximum of 2 mL, after use. (rn advice: flush and change caps after each hemodialysis treatment) Start: 09-21-2023 2 mL, intraven ous, As needed, line care, Starting on 09/21/23 at 1111, Arterial Lumen. IVP equal to lumen volume, up to a maximum of 2 mL, after use. (rn advice: flush and change caps after each hemodialysis [...] indication for use. 20 ml albumin human, fci 250 mg/ml injection (5 sources) Human Serum [...] First Start: 09-22-2023 End: 09-22-2023 Starting on [place] 09/22/23 at 1710, For 1 dose, JanuaryJennifer [...] 12-05-2023 Start: 12-05-2023 take 1 tablet by dxa th in the morning sertraline (ZOLOFT) 50 [...] physician with the results of fluid challenge. [place] Body Weight used due to BMI > [...] IVP equal to lumen volume after use. (rn advice: flush and change caps after each hemodialysis treatment) Start: 09-20-2023 take 3 mL intravenou sly every twelve hours 3 mL, intravenous, Every 12 hours, First dose on Sat09/20/23 at 1015 Start: 09-20-2023 take 20 mL intraveno usly every hour as needed 20 mL/hr, intravenous, Continuous PRN, to maintain patency of lines, Starting on Sat09/20/23 at 1010 sodium zirconium cyclosilicate [id number] mg powder for oral suspension (1 source) [...] Coronary arteriosclerosis; Translations: [Atherosclerotic heart disease of [place] coronary artery without angina pectoris] Onset: 02-22-2021 [...] Interpretation Reference Range Facility Documentationon 02-12-2024 Documentation [id number] Correa 1955 F Date Provider Department Center 02/12/2024 SD TAN [facility] SURG Second Fl No family history on file Normal [facility] BASIC METABOLIC PANELon 12-30 Anion gap [Moles/Vol] 11 mmol/L Normal 7-20 [facility] Comment on above: Performed By: #### L [id number] #### [facility] (BEAKER) [address] [place] [address] Calcium [Mass/Vol] 7.5 mg/dL Low 8.6-10.3 [facility] Comment on above: Performed By: #### L [id number] #### [facility] (BEAKER) [address] [place] [address] Chloride [Moles/Vol] 104 mmol/L Normal 98-107 [facility] Comment on above: Performed By: #### L [id number] #### [facility] (BEAKER) [address] [place] [address] CO2 [Moles/Vol] 24 mmol/L Normal 21-31 [facility] Comment on above: Performed By: #### L [id number] #### [facility] ([facility]AKER) [address] [place] [address] Creatinine [Mass/Vol] 1.33 mg/dL High 0.60-1.20 [facility] Comment on above: Performed By: #### L [id number] #### [facility] ([facility]) [address] [place] [address] GLOMERULAR FILTRATION RATE ML/MIN/1.73 SQ M.PREDICTED 44.1 mL/min/1.73m*2 Low >60.0 [facility] Comment on above: Result Comment: [facility]???s estimated glomerular filtration rate (eGFR) will no [...] group of individuals. Performed By: #### L [id number] #### [facility] ([facility]) [address] [place] [address] Glucose [Mass/Vol] 112 mg/dL High 70-100 [facility] Comment on above: Performed By: #### L [id number] #### [facility] ([facility]) [address] [facility] [place] [address] Potassium [Moles/Vol] 3.4 mmol/L Low 3.5-5.1 [facility] Comment on above: Performed By: #### L [id number] #### [facility] ([facility]) [address] [facility] [place] [address] Sodium [Moles/Vol] 136 mmol/L Normal 136-145 [facility] Comment on above: Performed By: #### L [id number] #### [facility] ([facility]) [address] [place] [address] Urea nitrogen [Mass/Vol] 20 mg/dL Normal 7-25 [facility] Comment on above: Performed By: #### L [id number] #### [facility] ([facility]) [address] [place] [address] UREA NITROGEN/CREATININ E (MASS RATIO) IN SER/PLAS 15.0 Normal [facility] Comment on above: Performed By: #### L [id number] #### [facility] ([facility]) [address] [facility] [place] [address] CBC WITH AUTO DIFFERENTIALon 01-20-2024 Basophils (Bld) [#/Vol] 0.05 10*3/uL Normal 0.00-0.20 [facility] Comment on above: Performed By: #### L [id number] #### [facility] ([facility]) [address] [place] [address] Basophils/100 WBC (Bld) 0.6 % Normal 0.0-1.0 [facility] Comment on above: Performed By: #### L [id number] #### [facility] ([facility]) [address] [place] [address] Eosinophils (Bld) [#/Vol] 0.17 10*3/uL Normal 0.00-0.50 [facility] Comment on above: Performed By: #### L [id number] #### [facility] ([facility]) [address] [place] [address] Eosinophils/100 WBC (Bld) 2.2 % Normal 0.0-6.0 [facility] Comment on above: Performed By: #### L [id number] #### [facility] ([facility]) [address] [place] [address] Erythrocyte distribution width (RBC) [Ratio] 15.9 % High 11.5-15.0 [facility] Comment on above: Performed By: #### L [id number] #### [facility] ([facility]) [address] [place] [address] ERYTHROCYTE MEAN CORPUSCULAR HEMOGLOBIN CONCENTRATION (G/DL) BY AUTOMATED 32.4 g/dL Normal 32.0-35.0 [facility] Comment on above: Performed By: #### L [id number] #### [facility] (BEAKER) [address] [place] [address] Hematocrit (Bld) [Volume fraction] 25.9 % Low 36.0-48.0 [facility] Comment on above: Performed By: #### L [id number] #### [facility] ([facility]) [address] [place] [address] Hemoglobin (Bld) [Mass/Vol] 8.4 g/dL Low 12.0-15.0 [facility] Comment on above: Performed By: #### L [id number] #### [facility] ([facility]) [address] [place] [address] Immature granulocytes (Bld) [#/Vol] 0.05 10*3/uL Normal 0.00-0.20 [facility] Comment on above: Performed By: #### L [id number] #### [facility] ([facility]) [address] [place] [address] Immature granulocytes/100 WBC (Bld) 0.6 % Normal 0.0-1.0 [facility] Comment on above: Performed By: #### L [id number] #### [facility] ([facility]) [address] [place] [address] Lymphocytes (Bld) [#/Vol] 1.74 10*3/uL Normal 1.20-4.00 [facility] Comment on above: Performed By: #### L [id number] #### [facility] ([facility]) [address] [place] [address] Lymphocytes/100 WBC (Bld) 22.1 % Normal 20.0-45.0 [facility] Comment on above: Performed By: #### L [id number] #### [facility] ([facility]) [address] [place] [address] MCH (RBC) [Entitic mass] 29.9 pg Normal 27.0-33.0 [facility] Comment on above: Performed By: #### L [id number] #### [facility] ([facility]) [address] [place] [address] MCV (RBC) [Entitic vol] 92.2 fL Normal 82.0-98.0 [facility] Comment on above: Performed By: #### L [id number] #### [facility] ([facility]) [address] [place] [address] Monocytes (Bld) [#/Vol] 0.77 10*3/uL Normal 0.10-1.00 [facility] Comment on above: Performed By: #### L [id number] #### [facility] ([facility]) [address] [place] [address] Monocytes/100 WBC (Bld) 9.8 % Normal 5.0-12.0 [facility] Comment on above: Performed By: #### L [id number] #### [facility] ([facility]) [address] [place] [address] Neutrophils (Bld) [#/Vol] 5.08 10*3/uL Normal 1.60-7.60 [facility] Comment on above: Performed By: #### L [id number] #### [facility] ([facility]) [address] [place] [address] Neutrophils/100 WBC (Bld) 64.7 % Normal 40.0-72.0 [facility] Comment on above: Performed By: #### L [id number] #### [facility] ([facility]) [address] [place] [address] NRBC (PER 100 WBCS) BY AUTOMATED COUNT 0.0 % Normal 0 [facility] Comment on above: Performed By: #### L [id number] #### [facility] ([facility]) [address] [place] [address] PLATELETS (10*3/UL) IN BLOOD AUTOMATED COUNT 129 10*3/uL Low 150-400 [facility] Comment on above: Performed By: #### L [id number] #### [facility] ([facility]) [address] [place] [address] RBC (Bld) [#/Vol] 2.81 10*6/uL Low 3.80-5.00 [facility] Comment on above: Performed By: #### L [id number] #### [facility] ([facility]) [address] [place] [address] WBC (Bld) [#/Vol] 7.86 10*3/uL Normal 4.00-10.60 [facility] Comment on above: Performed By: #### L [id number] #### [facility] ([facility]) [address] [place] [address] MAGNESIUMon 01-20-2024 Magnesium [Mass/Vol] 1.9 mg/dL Normal 1.9-2.7 [facility] Comment on above: Performed By: #### L [id number] #### [facility] ([facility]) [address] [place] [address] BASIC METABOLIC PANELon 12-30 Anion gap [Moles/Vol] 11 mmol/L Normal 7-20 [facility] Comment on above: Performed By: #### L [id number] #### [facility] ([facility]) [address] [place] [address] Calcium [Mass/Vol] 7.6 mg/dL Low 8.6-10.3 [facility] Comment on above: Performed By: #### L [id number] #### [facility] ([facility]) [address] [place] [address] Chloride [Moles/Vol] 106 mmol/L Normal 98-107 [facility] Comment on above: Performed By: #### L [id number] #### [facility] ([facility]) [address] [place] [address] CO2 [Moles/Vol] 23 mmol/L Normal 21-31 [facility] Comment on above: Performed By: #### L [id number] #### [facility] ([facility]) [address] [place] [address] Creatinine [Mass/Vol] 1.14 mg/dL Normal 0.60-1.20 [facility] Comment on above: Performed By: #### L [id number] #### [facility] ([facility]) [address] [place] [address] GLOMERULAR FILTRATION RATE ML/MIN/1.73 SQ M.PREDICTED 53.1 mL/min/1.73m*2 Low >60.0 [facility] Comment on above: Result Comment: [facility]???s estimated glomerular filtration rate (eGFR) will no [...] individuals. Performed By: #### L [id number] #### [facility] ([facility]) [address] [place] [address] Glucose [Mass/Vol] 95 mg/dL Normal 70-100 [facility] Comment on above: Performed By: #### L [id number] #### [facility] ([facility]) [address] [place] [address] Potassium [Moles/Vol] 3.2 mmol/L Low 3.5-5.1 [facility] Comment on above: Performed By: #### L [id number] #### [facility] ([facility]) [address] [place] [address] Sodium [Moles/Vol] 137 mmol/L Normal 136-145 [facility] Comment on above: Performed By: #### L [id number] #### [facility] ([facility]) [address] [place] [address] Urea nitrogen [Mass/Vol] 17 mg/dL Normal 7-25 [facility] Comment on above: Performed By: #### L [id number] #### [facility] ([facility]) [address] [facility] [place] [address] UREA NITROGEN/CREATININ E (MASS RATIO) IN SER/PLAS 14.9 Normal [facility] Comment on above: Performed By: #### L [id number] #### [facility] ([facility]) [address] [place] [address] CBC WITH AUTO DIFFERENTIALon 01-18-2024 Basophils (Bld) [#/Vol] 0.05 10*3/uL Normal 0.00-0.20 [facility] Comment on above: Performed By: #### L [id number] #### [facility] ([facility]) [address] [place] [address] Basophils/100 WBC (Bld) 0.6 % Normal 0.0-1.0 [facility] Comment on above: Performed By: #### L [id number] #### [facility] ([facility]) [address] [place] [address] Eosinophils (Bld) [#/Vol] 0.23 10*3/uL Normal 0.00-0.50 [facility] Comment on above: Performed By: #### L [id number] #### [facility] ([facility]) [address] [place] [address] Eosinophils/100 WBC (Bld) 2.8 % Normal 0.0-6.0 [facility] Comment on above: Performed By: #### L [id number] #### [facility] ([facility]) [address] [place] [address] Erythrocyte distribution width (RBC) [Ratio] 15.9 % High 11.5-15.0 [facility] Comment on above: Performed By: #### L [id number] #### [facility] ([facility]) [address] [place] [address] ERYTHROCYTE MEAN CORPUSCULAR HEMOGLOBIN CONCENTRATION (G/DL) BY AUTOMATED 32.2 g/dL Normal 32.0-35.0 [facility] Comment on above: Performed By: #### L [id number] #### [facility] ([facility]) [address] [place] [address] Hematocrit (Bld) [Volume fraction] 26.7 % Low 36.0-48.0 [facility] Comment on above: Performed By: #### L [id number] #### [facility] (BEAKER) [address] [place] [address] Hemoglobin (Bld) [Mass/Vol] 8.6 g/dL Low 12.0-15.0 [facility] Comment on above: Performed By: #### L [id number] #### [facility] ([facility]) [address] [place] [address] Immature granulocytes (Bld) [#/Vol] 0.03 10*3/uL Normal 0.00-0.20 [facility] Comment on above: Performed By: #### L [id number] #### [facility] ([facility]) [address] [place] [address] Immature granulocytes/100 WBC (Bld) 0.4 % Normal 0.0-1.0 [facility] Comment on above: Performed By: #### L [id number] #### [facility] ([facility]) [address] [place] [address] Lymphocytes (Bld) [#/Vol] 1.88 10*3/uL Normal 1.20-4.00 [facility] Comment on above: Performed By: #### L [id number] #### [facility] (BEAKER) [address] [place] [address] Lymphocytes/100 WBC (Bld) 23.2 % Normal 20.0-45.0 [facility] Comment on above: Performed By: #### L [id number] #### [facility] (BEAKER) [address] [place] [address] MCH (RBC) [Entitic mass] 29.5 pg Normal 27.0-33.0 [facility] Comment on above: Performed By: #### L [id number] #### [facility] (BEAKER) [address] [place] [address] MCV (RBC) [Entitic vol] 91.4 fL Normal 82.0-98.0 [facility] Comment on above: Performed By: #### L [id number] #### [facility] ([facility]) [address] [place] [address] Monocytes (Bld) [#/Vol] 0.86 10*3/uL Normal 0.10-1.00 [facility] Comment on above: Performed By: #### L [id number] #### [facility] ([facility]) [address] [place] [address] Monocytes/100 WBC (Bld) 10.6 % Normal 5.0-12.0 [facility] Comment on above: Performed By: #### L [id number] #### [facility] ([facility]) [address] [place] [address] Neutrophils (Bld) [#/Vol] 5.07 10*3/uL Normal 1.60-7.60 [facility] Comment on above: Performed By: #### L [id number] #### [facility] ([facility]) [address] [place] [address] Neutrophils/100 WBC (Bld) 62.4 % Normal 40.0-72.0 [facility] Comment on above: Performed By: #### L [id number] #### [facility] ([facility]) [address] [place] [address] NRBC (PER 100 WBCS) BY AUTOMATED COUNT 0.0 % Normal 0 [facility] Comment on above: Performed By: #### L [id number] #### [facility] ([facility]) [address] [place] [address] PLATELETS (10*3/UL) IN BLOOD AUTOMATED COUNT 133 10*3/uL Low 150-400 [facility] Comment on above: Performed By: #### L [id number] #### [facility] ([facility]) [address] [place] [address] RBC (Bld) [#/Vol] 2.92 10*6/uL Low 3.80-5.00 [facility] Comment on above: Performed By: #### L [id number] #### [facility] ([facility]) [address] [place] [address] WBC (Bld) [#/Vol] 8.12 10*3/uL Normal 4.00-10.60 [facility] Comment on above: Performed By: #### L [id number] #### [facility] ([facility]) [address] [place] [address] MAGNESIUMon 01-18-2024 Magnesium [Mass/Vol] 1.7 mg/dL Low 1.9-2.7 [facility] Comment on above: Performed By: #### L [id number] #### [facility] ([facility]) [address] [place] [address] BASIC METABOLIC PANELon 12-29 Anion gap [Moles/Vol] 13 mmol/L Normal - [facility] Comment on above: Performed By: #### L [id number] #### [facility] ([facility]) [address] [place] [address] Calcium [Mass/Vol] 7.3 mg/dL Low 8.6-10.3 [facility] Comment on above: Performed By: #### L [id number] #### [facility] ([facility]) [address] [place] [address] Chloride [Moles/Vol] 105 mmol/L Normal 98-107 [facility] Comment on above: Performed By: #### L [id number] #### [facility] ([facility]) [address] [place] [address] CO2 [Moles/Vol] 24 mmol/L Normal 21-31 [facility] Comment on above: Performed By: #### L [id number] #### [facility] (BEAKER) [address] [place] [address] Creatinine [Mass/Vol] 1.11 mg/dL Normal 0.60-1.20 [facility] Comment on above: Performed By: #### L [id number] #### [facility] ([facility]) [address] [place] [address] GLOMERULAR FILTRATION RATE ML/MIN/1.73 SQ M.PREDICTED 54.8 mL/min/1.73m*2 Low >60.0 [facility] Comment on above: Result Comment: [facility]???s estimated glomerular filtration rate (eGFR) will no [...] individuals. Performed By: #### L [id number] #### [facility] ([facility]) [address] [place] [address] Glucose [Mass/Vol] 110 mg/dL High 70-100 [facility] Comment on above: Performed By: #### L [id number] #### [facility] ([facility]) [address] [place] [address] Potassium [Moles/Vol] 3.5 mmol/L Normal 3.5-5.1 [facility] Comment on above: Performed By: #### L [id number] #### [facility] ([facility]) [address] [place] [address] Sodium [Moles/Vol] 138 mmol/L Normal 136-145 [facility] Comment on above: Performed By: #### L [id number] #### [facility] ([facility]) [address] [place] [address] Urea nitrogen [Mass/Vol] 14 mg/dL Normal 7-25 [facility] Comment on above: Performed By: #### L [id number] #### [facility] ([facility]) [address] [place] [address] UREA NITROGEN/CREATININ E (MASS RATIO) IN SER/PLAS 12.6 Normal [facility] Comment on above: Performed By: #### L [id number] #### [facility] ([facility]) [address] [place] [address] CBC WITH AUTO DIFFERENTIALon 01-15-2024 Basophils (Bld) [#/Vol] 0.05 10*3/uL Normal 0.00-0.20 [facility] Comment on above: Performed By: #### L [id number] #### [facility] ([facility]) [address] [place] [place] [address] Basophils/100 WBC (Bld) 0.7 % Normal 0.0-1.0 [facility] Comment on above: Performed By: #### L [id number] #### [facility] ([facility]) [address] [place] [place] [address] Eosinophils (Bld) [#/Vol] 0.18 10*3/uL Normal 0.00-0.50 [facility] Comment on above: Performed By: #### L [id number] #### [facility] ([facility]) [address] [place] [address] Eosinophils/100 WBC (Bld) 2.4 % Normal 0.0-6.0 [facility] Comment on above: Performed By: #### L [id number] #### [facility] ([facility]) [address] [place] [place] [address] Erythrocyte distribution width (RBC) [Ratio] 16.3 % High 11.5-15.0 [facility] Comment on above: Performed By: #### L [id number] #### [facility] ([facility]) [address] [place] [address] ERYTHROCYTE MEAN CORPUSCULAR HEMOGLOBIN CONCENTRATION (G/DL) BY AUTOMATED 33.1 g/dL Normal 32.0-35.0 [facility] Comment on above: Performed By: #### L [id number] #### [facility] ([facility]) [address] [place] [address] Hematocrit (Bld) [Volume fraction] 24.5 % Low 36.0-48.0 [facility] Comment on above: Performed By: #### L [id number] #### [facility] ([facility]) [address] [place] [address] Hemoglobin (Bld) [Mass/Vol] 8.1 g/dL Low 12.0-15.0 [facility] Comment on above: Performed By: #### L [id number] #### [facility] ([facility]) [address] [place] [address] Immature granulocytes (Bld) [#/Vol] 0.03 10*3/uL Normal 0.00-0.20 [facility] Comment on above: Performed By: #### L [id number] #### [facility] ([facility]) [address] [place] [address] Immature granulocytes/100 WBC (Bld) 0.4 % Normal 0.0-1.0 [facility] Comment on above: Performed By: #### L [id number] #### [facility] ([facility]) [address] [place] [place] [address] Lymphocytes (Bld) [#/Vol] 1.89 10*3/uL Normal 1.20-4.00 [facility] Comment on above: Performed By: #### L [id number] #### [facility] ([facility]) [address] [place] [address] Lymphocytes/100 WBC (Bld) 25.2 % Normal 20.0-45.0 [facility] Comment on above: Performed By: #### L [id number] #### [facility] ([facility]) [address] [place] [place] [address] MCH (RBC) [Entitic mass] 30.1 pg Normal 27.0-33.0 [facility] Comment on above: Performed By: #### L [id number] #### [facility] ([facility]) [address] [place] [address] MCV (RBC) [Entitic vol] 91.1 fL Normal 82.0-98.0 [facility] Comment on above: Performed By: #### L [id number] #### [facility] ([facility]) [address] [place] [address] Monocytes (Bld) [#/Vol] 0.70 10*3/uL Normal 0.10-1.00 [facility] Comment on above: Performed By: #### L [id number] #### [facility] ([facility]) [address] [place] [address] Monocytes/100 WBC (Bld) 9.3 % Normal 5.0-12.0 [facility] Comment on above: Performed By: #### L [id number] #### [facility] ([facility]) [address] [place] [address] Neutrophils (Bld) [#/Vol] 4.65 10*3/uL Normal 1.60-7.60 [facility] Comment on above: Performed By: #### L [id number] #### [facility] ([facility]) [address] [place] [address] Neutrophils/100 WBC (Bld) 62.0 % Normal 40.0-72.0 [facility] Comment on above: Performed By: #### L [id number] #### [facility] ([facility]) [address] [place] [address] NRBC (PER 100 WBCS) BY AUTOMATED COUNT 0.0 % Normal 0 [facility] Comment on above: Performed By: #### L [id number] #### [facility] ([facility]) [address] [place] [address] PLATELETS (10*3/UL) IN BLOOD AUTOMATED COUNT 129 10*3/uL Low 150-400 [facility] Comment on above: Performed By: #### L [id number] #### [facility] ([facility]) [address] [place] [address] RBC (Bld) [#/Vol] 2.69 10*6/uL Low 3.80-5.00 [facility] Comment on above: Performed By: #### L [id number] #### [facility] ([facility]) [address] [place] [address] WBC (Bld) [#/Vol] 7.50 10*3/uL Normal 4.00-10.60 [facility] Comment on above: Performed By: #### L [id number] #### [facility] ([facility]) [address] [place] [address] MAGNESIUMon 01-15-2024 Magnesium [Mass/Vol] 1.8 mg/dL Low 1.9-2.7 [facility] Comment on above: Performed By: #### L [id number] #### [facility] ([facility]) [address] [place] [address] BASIC METABOLIC PANELon 12-29 Anion gap [Moles/Vol] 13 mmol/L Normal 7-20 [facility] Comment on above: Performed By: #### L [id number] #### [facility] ([facility]) [address] [place] [address] Calcium [Mass/Vol] 7.1 mg/dL Low 8.6-10.3 [facility] Comment on above: Performed By: #### L [id number] #### [facility] ([facility]) [address] [place] [address] Chloride [Moles/Vol] 105 mmol/L Normal 98-107 [facility] Comment on above: Performed By: #### L [id number] #### [facility] ([facility]) [address] [place] [address] CO2 [Moles/Vol] 23 mmol/L Normal 21-31 [facility] Comment on above: Performed By: #### L [id number] #### [facility] ([facility]) [address] [place] [address] Creatinine [Mass/Vol] 1.04 mg/dL Normal 0.60-1.20 [facility] Comment on above: Performed By: #### L [id number] #### [facility] ([facility]) [address] [place] [address] GLOMERULAR FILTRATION RATE ML/MIN/1.73 SQ M.PREDICTED 59.3 mL/min/1.73m*2 Low >60.0 [facility] Comment on above: Result Comment: [facility]???s estimated glomerular filtration rate (eGFR) will no [...] individuals. Performed By: #### L [id number] #### [facility] ([facility]) [address] [place] [address] Glucose [Mass/Vol] 75 mg/dL Normal 70-100 [facility] Comment on above: Performed By: #### L [id number] #### [facility] ([facility]) [address] [place] [address] Potassium [Moles/Vol] 3.0 mmol/L Low 3.5-5.1 [facility] Comment on above: Performed By: #### L [id number] #### [facility] ([facility]) [address] [place] [address] Sodium [Moles/Vol] 138 mmol/L Normal 136-145 [facility] Comment on above: Performed By: #### L [id number] #### [facility] ([facility]) [address] [place] [address] Urea nitrogen [Mass/Vol] 14 mg/dL Normal 7-25 [facility] Comment on above: Performed By: #### L [id number] #### [facility] ([facility]) [address] [place] [address] UREA NITROGEN/CREATININ E (MASS RATIO) IN SER/PLAS 13.5 Normal [facility] Comment on above: Performed By: #### L [id number] #### [facility] ([facility]) [address] [place] [address] CBCon 01-12-2024 Erythrocyte distribution width (RBC) [Ratio] 15.9 % High 11.5-15.0 [facility] Comment on above: Performed By: #### L [id number] #### [facility] ([facility]) [address] [place] [address] ERYTHROCYTE MEAN CORPUSCULAR HEMOGLOBIN CONCENTRATION (G/DL) BY AUTOMATED 32.4 g/dL Normal 32.0-35.0 [facility] Comment on above: Performed By: #### L [id number] #### [facility] ([facility]) [address] [place] [address] Hematocrit (Bld) [Volume fraction] 27.2 % Low 36.0-48.0 [facility] Comment on above: Performed By: #### L [id number] #### [facility] ([facility]) [address] [place] [address] Hemoglobin (Bld) [Mass/Vol] 8.8 g/dL Low 12.0-15.0 [facility] Comment on above: Performed By: #### L [id number] #### [facility] ([facility]) [address] [place] [address] MCH (RBC) [Entitic mass] 29.2 pg Normal 27.0-33.0 [facility] Comment on above: Performed By: #### L [id number] #### [facility] ([facility]) [address] [place] [address] MCV (RBC) [Entitic vol] 90.4 fL Normal 82.0-98.0 [facility] Comment on above: Performed By: #### L [id number] #### [facility] ([facility]) [address] [place] [address] PLATELETS (10*3/UL) IN BLOOD AUTOMATED COUNT 126 10*3/uL Low 150-400 [facility] Comment on above: Performed By: #### L [id number] #### [facility] ([facility]) [address] [place] [address] RBC (Bld) [#/Vol] 3.01 10*6/uL Low 3.80-5.00 [facility] Comment on above: Performed By: #### L [id number] #### [facility] ([facility]) [address] [place] [address] WBC (Bld) [#/Vol] 9.11 10*3/uL Normal 4.00-10.60 [facility] Comment on above: Performed By: #### L [id number] #### [facility] ([facility]) [address] [place] [address] MAGNESIUMon 01-12-2024 Magnesium [Mass/Vol] 1.3 mg/dL Low 1.9-2.7 [facility] Comment on above: Performed By: #### L [id number] #### [facility] ([facility]) [address] [place] [address] BASIC METABOLIC PANELon Anion gap [Moles/Vol] 12 mmol/L Normal 7-20 [facility] Comment on above: Performed By: #### L [id number] #### [facility] ([facility]) [address] [place] [address] Calcium [Mass/Vol] 6.9 mg/dL Low 8.6-10.3 [facility] Comment on above: Performed By: #### L [id number] #### [facility] ([facility]) [address] [place] [address] Chloride [Moles/Vol] 104 mmol/L Normal 98-107 [facility] Comment on above: Performed By: #### L [id number] #### [facility] ([facility]) [address] [place] [address] CO2 [Moles/Vol] 24 mmol/L Normal 21-31 [facility] Comment on above: Performed By: #### L [id number] #### [facility] ([facility]) [address] [place] [address] Creatinine [Mass/Vol] 1.01 mg/dL Normal 0.60-1.20 [facility] Comment on above: Performed By: #### L [id number] #### [facility] ([facility]) [address] [place] [address] GLOMERULAR FILTRATION RATE ML/MIN/1.73 SQ M.PREDICTED 61.4 mL/min/1.73m*2 Normal >60.0 [facility] Comment on above: Result Comment: [facility]???s estimated glomerular filtration rate (eGFR) will no [...] group of individuals. Performed By: #### L [id number] #### [facility] ([facility]) [address] [place] [address] Glucose [Mass/Vol] 129 mg/dL High 70-100 [facility] Comment on above: Performed By: #### L [id number] #### [facility] ([facility]) [address] [place] [address] Potassium [Moles/Vol] 3.6 mmol/L Normal 3.5-5.1 [facility] Comment on above: Performed By: #### L [id number] #### [facility] ([facility]) [address] [place] [address] Sodium [Moles/Vol] 136 mmol/L Normal 136-145 [facility] Comment on above: Performed By: #### L [id number] #### [facility] ([facility]) [address] [place] [address] Urea nitrogen [Mass/Vol] 13 mg/dL Normal 7-25 [facility] Comment on above: Performed By: #### L [id number] #### [facility] ([facility]) [address] [place] [address] UREA NITROGEN/CREATININ E (MASS RATIO) IN SER/PLAS 12.9 Normal [facility] Comment on above: Performed By: #### L [id number] #### [facility] ([facility]) [address] [place] [address] CBCon 01-06-2024 Erythrocyte distribution width (RBC) [Ratio] 17.0 % High 11.5-15.0 [facility] Comment on above: Performed By: #### L [id number] #### [facility] ([facility]) [address] [place] [address] ERYTHROCYTE MEAN CORPUSCULAR HEMOGLOBIN CONCENTRATION (G/DL) BY AUTOMATED 32.4 g/dL Normal 32.0-35.0 [facility] Comment on above: Performed By: #### L [id number] #### [facility] ([facility]) [address] [place] [address] Hematocrit (Bld) [Volume fraction] 25.3 % Low 36.0-48.0 [facility] Comment on above: Performed By: #### L [id number] #### [facility] ([facility]) [address] [place] [address] Hemoglobin (Bld) [Mass/Vol] 8.2 g/dL Low 12.0-15.0 [facility] Comment on above: Performed By: #### L [id number] #### [facility] ([facility]) [address] [place] [place] [address] MCH (RBC) [Entitic mass] 30.3 pg Normal 27.0-33.0 [facility] Comment on above: Performed By: #### L [id number] #### [facility] ([facility]) [address] [place] [place] [address] MCV (RBC) [Entitic vol] 93.4 fL Normal 82.0-98.0 [facility] Comment on above: Performed By: #### L [id number] #### [facility] ([facility]) [address] [place] [address] PLATELETS (10*3/UL) IN BLOOD AUTOMATED COUNT 159 10*3/uL Normal 150-400 [facility] Comment on above: Performed By: #### L [id number] #### [facility] ([facility]) [address] [place] [address] RBC (Bld) [#/Vol] 2.71 10*6/uL Low 3.80-5.00 [facility] Comment on above: Performed By: #### L [id number] #### [facility] ([facility]) [address] [place] [address] WBC (Bld) [#/Vol] 8.46 10*3/uL Normal 4.00-10.60 [facility] Comment on above: Performed By: #### L [id number] #### [facility] ([facility]) [address] [place] [address] MAGNESIUMon 01-06-2024 Magnesium [Mass/Vol] 1.5 mg/dL Low 1.9-2.7 [facility] Comment on above: Performed By: #### L [id number] #### [facility] ([facility]) [address] [place] [address] BASIC METABOLIC PANELon 0 Anion gap [Moles/Vol] 12 mmol/L Normal 7-20 [facility] Comment on above: Performed By: #### L [id number] #### [facility] ([facility]) [address] [place] [address] Calcium [Mass/Vol] 6.9 mg/dL Low 8.6-10.3 [facility] Comment on above: Performed By: #### L [id number] #### [facility] ([facility]) [address] [place] [address] Chloride [Moles/Vol] 105 mmol/L Normal 98-107 [facility] Comment on above: Performed By: #### L [id number] #### [facility] ([facility]) [address] [place] [address] CO2 [Moles/Vol] 21 mmol/L Normal 21-31 [facility] Comment on above: Performed By: #### L [id number] #### [facility] ([facility]) [address] [place] [address] Creatinine [Mass/Vol] 0.99 mg/dL Normal 0.60-1.20 [facility] Comment on above: Performed By: #### L [id number] #### [facility] ([facility]) [address] [place] [address] GLOMERULAR FILTRATION RATE ML/MIN/1.73 SQ M.PREDICTED 62.9 mL/min/1.73m*2 Normal >60.0 [facility] Comment on above: Result Comment: [facility]???s estimated glomerular filtration rate (eGFR) will no [...] individuals. Performed By: #### L [id number] #### [facility] ([facility]) [address] [place] [address] Glucose [Mass/Vol] 155 mg/dL High 70-100 [facility] Comment on above: Performed By: #### L [id number] #### [facility] ([facility]) [address] [place] [address] Potassium [Moles/Vol] 3.1 mmol/L Low 3.5-5.1 [facility] Comment on above: Performed By: #### L [id number] #### [facility] ([facility]) [address] [place] [address] Sodium [Moles/Vol] 135 mmol/L Low 136-145 [facility] Comment on above: Performed By: #### L [id number] #### [facility] ([facility]) [address] [place] [address] Urea nitrogen [Mass/Vol] 10 mg/dL Normal 7-25 [facility] Comment on above: Performed By: #### L [id number] #### [facility] ([facility]) [address] [place] [address] UREA NITROGEN/CREATININ E (MASS RATIO) IN SER/PLAS 10.1 Normal [facility] Comment on above: Performed By: #### L [id number] #### [facility] ([facility]) [address] [place] [address] CBCon 01-03-2024 Erythrocyte distribution width (RBC) [Ratio] 17.6 % High 11.5-15.0 [facility] Comment on above: Performed By: #### L [id number] #### [facility] ([facility]) [address] [place] [address] ERYTHROCYTE MEAN CORPUSCULAR HEMOGLOBIN CONCENTRATION (G/DL) BY AUTOMATED 32.3 g/dL Normal 32.0-35.0 [facility] Comment on above: Performed By: #### L [id number] #### [facility] ([facility]) [address] [place] [address] Hematocrit (Bld) [Volume fraction] 26.9 % Low 36.0-48.0 [facility] Comment on above: Performed By: #### L [id number] #### [facility] ([facility]) [address] [place] [address] Hemoglobin (Bld) [Mass/Vol] 8.7 g/dL Low 12.0-15.0 [facility] Comment on above: Performed By: #### L [id number] #### [facility] ([facility]) [address] [place] [address] MCH (RBC) [Entitic mass] 29.4 pg Normal 27.0-33.0 [facility] Comment on above: Performed By: #### L [id number] #### [facility] ([facility]) [address] [place] [address] MCV (RBC) [Entitic vol] 90.9 fL Normal 82.0-98.0 [facility] Comment on above: Performed By: #### L [id number] #### [facility] ([facility]) [address] [place] [address] PLATELETS (10*3/UL) IN BLOOD AUTOMATED COUNT 224 10*3/uL Normal 150-400 [facility] Comment on above: Performed By: #### L [id number] #### [facility] ([facility]) [address] [place] [address] RBC (Bld) [#/Vol] 2.96 10*6/uL Low 3.80-5.00 [facility] Comment on above: Performed By: #### L [id number] #### [facility] ([facility]) [address] [place] [address] WBC (Bld) [#/Vol] 12.74 10*3/uL High 4.00-10.60 [facility] Comment on above: Performed By: #### L [id number] #### [facility] ([facility]) [address] [place] [address] MAGNESIUMon 01-03-2024 Magnesium [Mass/Vol] 1.5 mg/dL Low 1.9-2.7 [facility] Comment on above: Performed By: #### L [id number] #### [facility] ([facility]) [address] [place] [address] BASIC METABOLIC PANELon Anion gap [Moles/Vol] 12 mmol/L Normal 7-20 [facility] Comment on above: Performed By: #### L [id number] #### [facility] ([facility]) [address] [place] [address] Calcium [Mass/Vol] 6.8 mg/dL Low 8.6-10.3 [facility] Comment on above: Performed By: #### L [id number] #### [facility] ([facility]) [address] [place] [address] Chloride [Moles/Vol] 107 mmol/L Normal 98-107 [facility] Comment on above: Performed By: #### L [id number] #### [facility] ([facility]) [address] [place] [address] CO2 [Moles/Vol] 20 mmol/L Low 21-31 [facility] Comment on above: Performed By: #### L [id number] #### [facility] ([facility]) [address] [place] [address] Creatinine [Mass/Vol] 1.05 mg/dL Normal 0.60-1.20 [facility] Comment on above: Performed By: #### L [id number] #### [facility] ([facility]) [address] [place] [address] GLOMERULAR FILTRATION RATE ML/MIN/1.73 SQ M.PREDICTED 58.6 mL/min/1.73m*2 Low >60.0 [facility] Comment on above: Result Comment: [facility]???s estimated glomerular filtration rate (eGFR) will no [...] individuals. Performed By: #### L [id number] #### [facility] ([facility]) [address] [place] [address] Glucose [Mass/Vol] 82 mg/dL Normal 70-100 [facility] Comment on above: Performed By: #### L [id number] #### [facility] ([facility]) [address] [place] [address] Potassium [Moles/Vol] 3.9 mmol/L Normal 3.5-5.1 [facility] Comment on above: Performed By: #### L [id number] #### [facility] ([facility]) [address] [place] [address] Sodium [Moles/Vol] 135 mmol/L Low 136-145 [facility] Comment on above: Performed By: #### L [id number] #### [facility] ([facility]) [address] [place] [address] Urea nitrogen [Mass/Vol] 11 mg/dL Normal 7-25 [facility] Comment on above: Performed By: #### L [id number] #### [facility] ([facility]) [address] [place] [address] UREA NITROGEN/CREATININ E (MASS RATIO) IN SER/PLAS 10.5 Normal [facility] Comment on above: Performed By: #### L [id number] #### [facility] ([facility]) [address] [place] [address] CBC WITH AUTO DIFFERENTIALon 12-31-2023 Basophils (Bld) [#/Vol] 0.08 10*3/uL Normal 0.00-0.20 [facility] Comment on above: Performed By: #### L [id number] #### [facility] ([facility]) [address] [place] [address] Basophils/100 WBC (Bld) 0.7 % Normal 0.0-1.0 [facility] Comment on above: Performed By: #### L [id number] #### [facility] ([facility]) [address] [place] [address] Eosinophils (Bld) [#/Vol] 0.17 10*3/uL Normal 0.00-0.50 [facility] Comment on above: Performed By: #### L [id number] #### [facility] (BEAKER) [address] [place] [address] Eosinophils/100 WBC (Bld) 1.4 % Normal 0.0-6.0 [facility] Comment on above: Performed By: #### L [id number] #### [facility] ([facility]) [address] [place] [address] Erythrocyte distribution width (RBC) [Ratio] 18.6 % High 11.5-15.0 [facility] Comment on above: Performed By: #### L [id number] #### [facility] ([facility]) [address] [place] [address] ERYTHROCYTE MEAN CORPUSCULAR HEMOGLOBIN CONCENTRATION (G/DL) BY AUTOMATED 32.6 g/dL Normal 32.0-35.0 [facility] Comment on above: Performed By: #### L [id number] #### [facility] ([facility]) [address] [place] [address] Hematocrit (Bld) [Volume fraction] 26.7 % Low 36.0-48.0 [facility] Comment on above: Performed By: #### L [id number] #### [facility] ([facility]) [address] [place] [address] Hemoglobin (Bld) [Mass/Vol] 8.7 g/dL Low 12.0-15.0 [facility] Comment on above: Performed By: #### L [id number] #### [facility] ([facility]) [address] [place] [address] Immature granulocytes (Bld) [#/Vol] 0.08 10*3/uL Normal 0.00-0.20 [facility] Comment on above: Performed By: #### L [id number] #### [facility] ([facility]ER) [address] [place] [address] Immature granulocytes/100 WBC (Bld) 0.7 % Normal 0.0-1.0 [facility] Comment on above: Performed By: #### L [id number] #### [facility] (BEAKER) [address] [place] [address] Lymphocytes (Bld) [#/Vol] 1.92 10*3/uL Normal 1.20-4.00 [facility] Comment on above: Performed By: #### L [id number] #### [facility] ([facility]) [address] [place] [address] Lymphocytes/100 WBC (Bld) 15.8 % Low 20.0-45.0 [facility] Comment on above: Performed By: #### L [id number] #### [facility] ([facility]) [address] [place] [address] MCH (RBC) [Entitic mass] 30.6 pg Normal 27.0-33.0 [facility] Comment on above: Performed By: #### L [id number] #### [facility] ([facility]) [address] [place] [address] MCV (RBC) [Entitic vol] 94.0 fL Normal 82.0-98.0 [facility] Comment on above: Performed By: #### L [id number] #### [facility] ([facility]) [address] [place] [address] Monocytes (Bld) [#/Vol] 1.01 10*3/uL High 0.10-1.00 [facility] Comment on above: Performed By: #### L [id number] #### [facility] ([facility]) [address] [place] [address] Monocytes/100 WBC (Bld) 8.3 % Normal 5.0-12.0 [facility] Comment on above: Performed By: #### L [id number] #### [facility] ([facility]ER) [address] [place] [address] Neutrophils (Bld) [#/Vol] 8.93 10*3/uL High 1.60-7.60 [facility] Comment on above: Performed By: #### L [id number] #### [facility] ([facility]ER) [address] [place] [address] Neutrophils/100 WBC (Bld) 73.1 % High 40.0-72.0 [facility] Comment on above: Performed By: #### L [id number] #### [facility] ([facility]) [address] [place] [address] NRBC (PER 100 WBCS) BY AUTOMATED COUNT 0.0 % Normal 0 [facility] Comment on above: Performed By: #### L [id number] #### [facility] ([facility]) [address] [place] [address] PLATELETS (10*3/UL) IN BLOOD AUTOMATED COUNT 239 10*3/uL Normal 150-400 [facility] Comment on above: Performed By: #### L [id number] #### [facility] ([facility]) [address] [place] [address] RBC (Bld) [#/Vol] 2.84 10*6/uL Low 3.80-5.00 [facility] Comment on above: Performed By: #### L [id number] #### [facility] ([facility]) [address] [place] [address] WBC (Bld) [#/Vol] 12.19 10*3/uL High 4.00-10.60 [facility] Comment on above: Performed By: #### L [id number] #### [facility] ([facility]) [address] [place] [address] MAGNESIUMon 12-31-2023 Magnesium [Mass/Vol] 1.7 mg/dL Low 1.9-2.7 [facility] Comment on above: Performed By: #### L [id number] #### [facility] ([facility]ER) [address] [place] [address] PHOSPHORUSon 12-31-2023 Magnesium [Mass/Vol] 2.9 mg/dL Normal 2.5-5.0 [facility] Comment on above: Performed By: #### L [id number] #### [facility] ([facility]) [address] [place] [address] CBC WITH AUTO DIFFERENTIALon 12-29-2023 Basophils (Bld) [#/Vol] 0.07 10*3/uL Normal 0.00-0.20 [facility] Comment on above: Performed By: #### L [id number] #### [facility] ([facility]) [address] [place] [address] Basophils/100 WBC (Bld) 0.5 % Normal 0.0-1.0 [facility] Comment on above: Performed By: #### L [id number] #### [facility] ([facility]) [address] [place] [address] Eosinophils (Bld) [#/Vol] 0.14 10*3/uL Normal 0.00-0.50 [facility] Comment on above: Performed By: #### L [id number] #### [facility] ([facility]) [address] [place] [address] Eosinophils/100 WBC (Bld) 1.0 % Normal 0.0-6.0 [facility] Comment on above: Performed By: #### L [id number] #### [facility] ([facility]) [address] [place] [address] Erythrocyte distribution width (RBC) [Ratio] 18.0 % High 11.5-15.0 [facility] Comment on above: Performed By: #### L [id number] #### [facility] ([facility]) [address] [place] [address] ERYTHROCYTE MEAN CORPUSCULAR HEMOGLOBIN CONCENTRATION (G/DL) BY AUTOMATED 31.5 g/dL Low 32.0-35.0 [facility] Comment on above: Performed By: #### L [id number] #### [facility] ([facility]) [address] [place] [address] Hematocrit (Bld) [Volume fraction] 29.2 % Low 36.0-48.0 [facility] Comment on above: Performed By: #### L [id number] #### [facility] ([facility]) [address] [place] [address] Hemoglobin (Bld) [Mass/Vol] 9.2 g/dL Low 12.0-15.0 [facility] Comment on above: Performed By: #### L [id number] #### [facility] ([facility]) [address] [place] [address] Immature granulocytes (Bld) [#/Vol] 0.13 10*3/uL Normal 0.00-0.20 [facility] Comment on above: Performed By: #### L [id number] #### [facility] ([facility]) [address] [place] [address] Immature granulocytes/100 WBC (Bld) 0.9 % Normal 0.0-1.0 [facility] Comment on above: Performed By: #### L [id number] #### [facility] ([facility]) [address] [place] [address] Lymphocytes (Bld) [#/Vol] 1.59 10*3/uL Normal 1.20-4.00 [facility] Comment on above: Performed By: #### L [id number] #### [facility] ([facility]) [address] [place] [address] Lymphocytes/100 WBC (Bld) 11.3 % Low 20.0-45.0 [facility] Comment on above: Performed By: #### L [id number] #### [facility] ([facility]) [address] [place] [address] MCH (RBC) [Entitic mass] 29.8 pg Normal 27.0-33.0 [facility] Comment on above: Performed By: #### L [id number] #### [facility] ([facility]) [address] [place] [address] MCV (RBC) [Entitic vol] 94.5 fL Normal 82.0-98.0 [facility] Comment on above: Performed By: #### L [id number] #### [facility] ([facility]) [address] [place] [address] Monocytes (Bld) [#/Vol] 1.05 10*3/uL High 0.10-1.00 [facility] Comment on above: Performed By: #### L [id number] #### [facility] ([facility]ER) [address] [place] [address] Monocytes/100 WBC (Bld) 7.5 % Normal 5.0-12.0 [facility] Comment on above: Performed By: #### L [id number] #### [facility] ([facility]) [address] [place] [address] Neutrophils (Bld) [#/Vol] 11.11 10*3/uL High 1.60-7.60 [facility] Comment on above: Performed By: #### L [id number] #### [facility] ([facility]) [address] [place] [address] Neutrophils/100 WBC (Bld) 78.8 % High 40.0-72.0 [facility] Comment on above: Performed By: #### L [id number] #### [facility] ([facility]) [address] [place] [address] NRBC (PER 100 WBCS) BY AUTOMATED COUNT 0.0 % Normal 0 [facility] Comment on above: Performed By: #### L [id number] #### [facility] ([facility]) [address] [place] [address] PLATELETS (10*3/UL) IN BLOOD AUTOMATED COUNT 189 10*3/uL Normal 150-400 [facility] Comment on above: Performed By: #### L [id number] #### [facility] ([facility]ER) [address] [place] [address] RBC (Bld) [#/Vol] 3.09 10*6/uL Low 3.80-5.00 [facility] Comment on above: Performed By: #### L [id number] #### [facility] (BE[facility]ER) [address] [place] [address] WBC (Bld) [#/Vol] 14.09 10*3/uL High 4.00-10.60 [facility] Comment on above: Performed By: #### L [id number] #### [facility] ([facility]) [address] [place] [address] COMPREHENSIVE METABOLIC PANE Elver 12-29-2023 Albumin [Mass/Vol] 2.7 g/dL Low 3.5-5.7 [facility] Comment on above: Performed By: #### L [id number] #### [facility] ([facility]) [address] [place] [address] ALP [Catalytic activity/Vol] 162 U/L High 34-104 [facility] Comment on above: Performed By: #### L [id number] #### [facility] ([facility]) [address] [place] [address] ALT [Catalytic activity/Vol] 11 U/L Normal 7-52 [facility] Comment on above: Performed By: #### L [id number] #### [facility] ([facility]) [address] [place] [address] Anion gap [Moles/Vol] 11 mmol/L Normal 7-20 [facility] Comment on above: Performed By: #### L [id number] #### [facility] ([facility]) [address] [place] [address] AST [Catalytic activity/Vol] 21 U/L Normal 13-39 [facility] Comment on above: Performed By: #### L [id number] #### [facility] ([facility]) [address] [place] [address] Bilirubin [Mass/Vol] 0.7 mg/dL Normal 0.3-1.0 [facility] Comment on above: Performed By: #### L [id number] #### [facility] ([facility]) [address] [place] [address] Calcium [Mass/Vol] 7.2 mg/dL Low 8.6-10.3 [facility] Comment on above: Performed By: #### L [id number] #### [facility] ([facility]) [address] [place] [address] Chloride [Moles/Vol] 108 mmol/L High 98-107 [facility] Comment on above: Performed By: #### L [id number] #### [facility] ([facility]) [address] [place] [address] CO2 [Moles/Vol] 20 mmol/L Low 21-31 [facility] Comment on above: Performed By: #### L [id number] #### [facility] ([facility]) [address] [address] Creatinine [Mass/Vol] 0.92 mg/dL Normal 0.60-1.20 [facility] Comment on above: Performed By: #### L [id number] #### [facility] ([facility]) [address] [place] [address] GLOMERULAR FILTRATION RATE ML/MIN/1.73 SQ M.PREDICTED 68.7 mL/min/1.73m*2 Normal >60.0 [facility] Comment on above: Result Comment: [facility]???s estimated glomerular filtration rate (eGFR) will no [...] individuals. Performed By: #### L [id number] #### [facility] ([facility]) [address] [place] [address] Glucose [Mass/Vol] 83 mg/dL Normal 70-100 [facility] Comment on above: Performed By: #### L [id number] #### [facility] ([facility]) [address] [place] [address] Potassium [Moles/Vol] 4.5 mmol/L Normal 3.5-5.1 [facility] Comment on above: Performed By: #### L [id number] #### [facility] ([facility]) [address] [place] [address] Protein [Mass/Vol] 5.8 g/dL Low 6.0-8.3 [facility] Comment on above: Performed By: #### L [id number] #### [facility] ([facility]) [address] [place] [address] Sodium [Moles/Vol] 134 mmol/L Low 136-145 [facility] Comment on above: Performed By: #### L [id number] #### [facility] ([facility]) [address] [place] [address] Urea nitrogen [Mass/Vol] 11 mg/dL Normal 7-25 [facility] Comment on above: Performed By: #### L [id number] #### [facility] ([facility]) [address] [place] [address] UREA NITROGEN/CREATININ E (MASS RATIO) IN SER/PLAS 12.0 Normal [facility] Comment on above: Performed By: #### L [id number] #### [facility] ([facility]) [address] [place] [address] MAGNESIUMon 12-29-2023 Magnesium [Mass/Vol] 1.4 mg/dL Low 1.9-2.7 [facility] Comment on above: Performed By: #### L [id number] #### [facility] ([facility]) [address] [place] [address] PHOSPHORUSon 12-29-2023 Magnesium [Mass/Vol] 2.2 mg/dL Low 2.5-5.0 [facility] Comment on above: Performed By: #### L [id number] #### [facility] ([facility]) [address] [place] [address] CBC AND AUTO DIFFon 12-28-19 ABSOLUTE BASOPHIL 0.1 X10E9/L Normal 0.0-0.2 [facility] Comment on above: Performed By: #### C BCA, CMP ####[facility] ([id number])[address] [address] ABSOLUTE NEUTROPHIL 9.5 X10E9/L High 1.5-6.6 [facility] Comment on above: Performed By: #### C BCA, CMP ####[facility] ([id number])[address] [address] RBC COUNT 2.70 X10E12/L Low 3.80-5.20 [facility] Comment on above: Performed By: #### C BCA, CMP ####[facility] ([id number])[address] [address] WBC (Bld) [#/Vol] 12.1 10*3/uL High 4.0-11.0 [facility] Comment on above: Performed By: #### C BCA, CMP ####[facility] ([id number])[address] [address] Basophils/100 WBC (Bld) 0.6 % Normal [facility] Comment on above: Performed By: #### C BCA, CMP ####[facility] ([id number])[address] [address] Eosinophils (Bld) [#/Vol] 0.2 10*3/uL Normal 0.0-0.4 [facility] Comment on above: Performed By: #### C BCA, CMP ####[facility] ([id number])[address] [address] Eosinophils/100 WBC (Bld) 1.4 % Normal [facility] Comment on above: Performed By: #### C BCA, CMP ####[facility] ([id number])[address] [address] Erythrocyte distribution width (RBC) [Ratio] 17.8 % High 11.5-15.0 [facility] Comment on above: Performed By: #### C BCA, CMP ####[facility] ([id number])[address] [address] Hematocrit (Bld) [Volume fraction] 24.4 % Low 35-47 [facility] Comment on above: Performed By: #### C BCA, CMP ####[facility] ([id number])[address] [address] Hemoglobin (Bld) [Mass/Vol] 8.1 g/dL Low 11.7-15.5 [facility] Comment on above: Performed By: #### C BCA, CMP ####[facility] ([id number])[address] [address] Lymphocytes (Bld) [#/Vol] 1.5 10*3/uL Normal 1.0-3.5 [facility] Comment on above: Performed By: #### C BCA, CMP ####[facility] ([id number])[address] [address] Lymphocytes/100 WBC (Bld) 12.2 % Normal [facility] Comment on above: Performed By: #### C BCA, CMP ####[facility] ([id number])[address] [address] MCH (RBC) [Entitic mass] 30.2 pg Normal 27-34 [facility] Comment on above: Performed By: #### C BCA, CMP ####[facility] ([id number])[address] [address] MCHC (RBC) [Mass/Vol] 33.4 g/dL Normal 32-36 [facility] Comment on above: Performed By: #### C BCA, CMP ####[facility] ([id number])[address] [address] MCV (RBC) [Entitic vol] 90 fL Normal 80-100 [facility] Comment on above: Performed By: #### C BCA, CMP ####[facility] ([id number])[address] [address] Monocytes (Bld) [#/Vol] 0.9 10*3/uL Normal 0-0.9 [facility] Comment on above: Performed By: #### C MONSE, CMP ####[facility] ([id number])[address] [address] Monocytes/100 WBC (Bld) 7.3 % Normal [facility] Comment on above: Performed By: #### Dru SHEA, CMP ####[facility] ([id number])[address] [address] Neutrophils/100 WBC (Bld) 78.5 % Normal [facility] Comment on above: Performed By: #### C MONSE, CMP ####[facility] ([id number])[address] [address] Platelet mean volume (Bld) [Entitic vol] 8.8 fL Normal 7-12 [facility] Comment on above: Performed By: #### C BCA, CMP ####[facility] ([id number])[address] [address] Platelets (Bld) [#/Vol] 160 10*3/uL Normal 150-450 [facility] Comment on above: Performed By: #### C BCA, CMP ####[facility] ([id number])[address] [address] CBC auto differentialon 03-3 0-2023 Basophils (Bld) [#/Vol] 0.1 10*3/uL [facility] Interpretation and review of laboratory results Abnormal [facility] Neutrophils (Bld) [#/Vol] 9.5 10*3/uL High [facility] RBC (Bld) [#/Vol] 2.70 10*6/uL Low [facility] WBC corrected for nucl RBC Auto (Bld) [#/Vol] 12.1 High [facility] COMPREHENSIVE METABOLIC PANE [place]ver 12-28-2023 ALT [Catalytic activity/Vol] 13 U/L Normal 0-31 [facility] Comment on above: Performed By: #### C BCA, CMP ####[facility] ([id number])[address], [place] [address] GFR/1.73 sq M.predicted among non-blacks MDRD (S/P/Bld) [Vol rate/Area] 63 mL/min/{1.73_m2} Normal >59 [facility] Comment on above: Result Comment: Repo rted eGFR is based on theCKD-EPI 2020 equation that doesnot use a race coefficient. Performed By: #### C BCA, CMP ####[facility] ([id number])[address], [place] [address] Albumin [Mass/Vol] 2.3 g/dL Low 3.2-5.3 [facility] Comment on above: Performed By: #### C BCA, CMP ####[facility] ([id number])[address], [place] [address] ALP [Catalytic activity/Vol] 152 U/L High 39-130 [facility] Comment on above: Performed By: #### C BCA, CMP ####[facility] ([id number])[address] [place] [address] Anion gap [Moles/Vol] 6 mmol/L Normal 5-15 [facility] Comment on above: Performed By: #### C BCA, CMP ####[facility] ([id number])[address], [address] [place] [address] AST [Catalytic activity/Vol] 18 U/L Normal 0-41 [facility] Comment on above: Performed By: #### C BCA, CMP ####[facility] ([id number])[address], [place] [address] Calcium [Mass/Vol] 7.0 mg/dL Low 8.5-10.5 [facility] Comment on above: Performed By: #### C BCA, CMP ####[facility] ([id number])[address], [place] [address] CO2 [Moles/Vol] 22 mmol/L Normal 22-32 [facility] Comment on above: Performed By: #### C BCA, CMP ####[facility] ([id number])[address], [place] [address] Creatinine [Mass/Vol] 0.99 mg/dL Normal 0.40-1.00 [facility] Comment on above: Result Comment: METH OD TRACEABLE TO IDMS STANDARD Performed By: #### C BCA, CMP ####[facility] ([id number])[address], [place] [address] Glucose [Mass/Vol] 102 mg/dL High 65-99 [facility] Comment on above: Performed By: #### C BCA, CMP ####[facility] ([id number])[address], [place] [address] Potassium [Moles/Vol] 4.9 mmol/L Normal 3.5-5.0 [facility] Comment on above: Performed By: #### C BCA, CMP ####[facility] ([id number])[address], [place] [address] Protein [Mass/Vol] 5.4 g/dL Low 6.0-8.0 [facility] Comment on above: Performed By: #### C BCA, CMP ####[facility] ([id number])[address], [place] [address] Sodium [Moles/Vol] 138 mmol/L Normal 134-146 [facility] Comment on above: Performed By: #### C BCA, CMP ####[facility] ([id number])[address], [place] [address] Urea nitrogen [Mass/Vol] 12 mg/dL Normal 5-27 [facility] Comment on above: Performed By: #### C BCA, CMP ####[facility] ([id number])[address], [place] [address] Albumin [Mass/Vol] 3.7 g/dL Normal 3.2-5.3 [facility] Comment on above: Performed By: #### C MP ####[facility] ([id number])[address], [place] [address] ALP [Catalytic activity/Vol] 61 U/L Normal 39-130 [facility] Comment on above: Performed By: #### C MP ####[facility] ([id number])[address], [place] [address] ALT [Catalytic activity/Vol] 12 U/L Normal 0-31 [facility] Comment on above: Performed By: #### C MP ####[facility] ([id number])[address], [place] [address] Anion gap [Moles/Vol] 9 mmol/L Normal 5-15 [facility] Comment on above: Performed By: #### C MP ####[facility] [facility] ([id number])[address], [address], [place] [address] AST [Catalytic activity/Vol] 14 U/L Normal 0-41 [facility] Comment on above: Performed By: #### C MP ####[facility] ([id number])[address], [address], [place] [address] Bilirubin [Mass/Vol] 0.5 mg/dL Normal 0.3-1.2 [facility] Comment on above: Performed By: #### C MP ####[facility] ([id number])[address], [address], [place] [address] Calcium [Mass/Vol] 8.4 mg/dL Low 8.5-10.5 [facility] Comment on above: Performed By: #### C MP ####[facility] ([id number])[address] [address], [place] [address] Chloride [Moles/Vol] 110 mmol/L High 98-109 [facility] Comment on above: Performed By: #### C MP ####[facility] ([id number])[address] [address] [place] [address] CO2 [Moles/Vol] 21 mmol/L Low 22-32 [facility] Comment on above: Performed By: #### C MP ####[facility] ([id number])[address] [address], [place] [address] Creatinine [Mass/Vol] 0.91 mg/dL Normal 0.40-1.00 [facility] Comment on above: Result Comment: METH OD TRACEABLE TO IDMS STANDARD Performed By: #### C MP ####[facility] ([id number])[address] [address] GFR/1.73 sq M.predicted among non-blacks MDRD (S/P/Bld) [Vol rate/Area] 70 mL/min/{1.73_m2} Normal >59 [facility] Comment on above: Result Comment: Repo rted eGFR is based on theCKD-EPI 2020 equation that doesnot use a race coefficient. Performed By: #### C MP ####[facility] ([id number])[address] [address], [place] [address] Glucose [Mass/Vol] 86 mg/dL Normal 65-99 [facility] Comment on above: Performed By: #### C MP ####[facility] ([id number])[address], [address], [place] [address] Potassium [Moles/Vol] 3.5 mmol/L Normal 3.5-5.0 [facility] Comment on above: Performed By: #### C MP ####[facility] ([id number])[address], [address] [address] Protein [Mass/Vol] 5.5 g/dL Low 6.0-8.0 [facility] Comment on above: Performed By: #### C MP ####[facility] ([id number])[address], [address], [place] [address] Sodium [Moles/Vol] 140 mmol/L Normal 134-146 [facility] Comment on above: Performed By: #### C MP ####[facility] ([id number])[address], [address] [address] Urea nitrogen [Mass/Vol] 9 mg/dL Normal 5-27 [facility] Comment on above: Performed By: #### C MP ####[facility] ([id number])[address], [place] [address] Bilirubin [Mass/Vol] 0.5 mg/dL Normal 0.3-1.2 [facility] Comment on above: Performed By: #### C BCA, CMP ####[facility] ([id number])[address], [address], [place] [address] Chloride [Moles/Vol] 110 mmol/L High 98-109 [facility] Comment on above: Performed By: #### C BCA, CMP ####[facility] ([id number])[address], [address], [place] [address] Comprehensive metabolic pane elver 12-28-2023 ALT No additional P-5'-P [Catalytic activity/Vol] 13 U/L 0 - 31 U/L [facility] Bilirubin [Mass/Vol] 0.5 mg/dL 0.3 - 1.2 mg/dL [facility] Chloride [Moles/Vol] 110 mmol/L High 98 - 109 mmol/L [facility] eGFR (CKD-EPI)non-race dependent 63 - PINF [facility] Interpretation and review of laboratory results Abnormal [facility] Albumin [Mass/Vol] 3.7 g/dL 3.2 - 5.3 g/dL [facility] ALP [Catalytic activity/Vol] 61 U/L 39 - 130 U/L [facility] ALT No additional P-5'-P [Catalytic activity/Vol] 12 U/L 0 - 31 U/L [facility] Anion gap [Moles/Vol] 9 mmol/L 5 - 15 mmol/L [facility] AST [Catalytic activity/Vol] 14 U/L 0 - 41 U/L [facility] Calcium [Mass/Vol] 8.4 mg/dL Low 8.5 - 10. 5 mg/dL [facility] CO2 [Moles/Vol] 21 mmol/L Low 22 - 32 mmol/L [facility] Creatinine [Mass/Vol] 0.91 mg/dL 0.40 - 1.00 mg/dL [facility] eGFR (CKD-EPI)non-race dependent 70 - PINF [facility] Glucose [Mass/Vol] 86 mg/dL 65 - 99 mg/dL [facility] Interpretation and review of laboratory results Abnormal [facility] Potassium [Moles/Vol] 3.5 mmol/L 3.5 - 5.0 mmol/L [facility] Protein [Mass/Vol] 5.5 g/dL Low 6.0 - 8.0 g/dL [facility] Sodium [Moles/Vol] 140 mmol/L 134 - 146 mmol/L [facility] Urea nitrogen [Mass/Vol] 9 mg/dL 5 - 27 mg/dL [facility] MR PELVIS W WO CONTon 2023 MR PELVIS W WO CONT Normal [facility] MR Pelvis WO and W contrast Kellee 12-28-2023 SECTRAPACS [facility] Bacteria identified Aer cx N om (Bld)on 12-27-2023 Service comment (Unsp spec) [Interp] NO GROWTH 5 DAYS [facility] CBC AND AUTO DIFFon 12-27-19 ABSOLUTE BASOPHIL 0.1 X10E9/L Normal 0.0-0.2 [facility] Comment on above: Performed By: #### C BCA, CMP ####[facility] ([id number])[address], [address], [place] [address] ABSOLUTE NEUTROPHIL 11.0 X10E9/L High 1.5-6.6 [facility] Comment on above: Performed By: #### C BCA, CMP ####[facility] ([id number])[address], [address], [place] [address] Basophils/100 WBC (Bld) 0.7 % Normal [facility] Comment on above: Performed By: #### C BCA, CMP ####[facility] ([id number])[address], [address], [place] [address] Eosinophils (Bld) [#/Vol] 0.1 10*3/uL Normal 0.0-0.4 [facility] Comment on above: Performed By: #### C BCA, CMP ####[facility] ([id number])[address], [address], [place] [address] Eosinophils/100 WBC (Bld) 1.0 % Normal [facility] Comment on above: Performed By: #### C BCA, CMP ####[facility] ([id number])[address], [address], [place] [address] Erythrocyte distribution width (RBC) [Ratio] 18.1 % High 11.5-15.0 [facility] Comment on above: Performed By: #### C BCA, CMP ####[facility] ([id number])[address], [address], [place] [address] Hematocrit (Bld) [Volume fraction] 25.3 % Low 35-47 [facility] Comment on above: Performed By: #### C BCA, CMP ####[facility] ([id number])[address], [address], [place] [address] Hemoglobin (Bld) [Mass/Vol] 8.3 g/dL Low 11.7-15.5 [facility] Comment on above: Performed By: #### C MONSE, CMP ####[facility] ([id number])[address], [address] [address] Lymphocytes (Bld) [#/Vol] 1.3 10*3/uL Normal 1.0-3.5 [facility] Comment on above: Performed By: #### C MONSE, CMP ####[facility] ([id number])[address] [address] Lymphocytes/100 WBC (Bld) 9.7 % Normal [facility] Comment on above: Performed By: #### C MONSE, CMP ####[facility] ([id number])[address], [address], [place] [address] MCH (RBC) [Entitic mass] 29.9 pg Normal 27-34 [facility] Comment on above: Performed By: #### C BCA, CMP ####[facility] ([id number])[address], [address], [place] [address] MCHC (RBC) [Mass/Vol] 33.0 g/dL Normal 32-36 [facility] Comment on above: Performed By: #### C BCA, CMP ####[facility] ([id number])[address], [address], [place] [address] MCV (RBC) [Entitic vol] 91 fL Normal 80-100 [facility] Comment on above: Performed By: #### C BCA, CMP ####[facility] ([id number])[address], [address], [place] [address] Monocytes (Bld) [#/Vol] 0.9 10*3/uL Normal 0-0.9 [facility] Comment on above: Performed By: #### C BCA, CMP ####[facility] ([id number])[address], [address], [place] [address] Monocytes/100 WBC (Bld) 6.7 % Normal [facility] Comment on above: Performed By: #### C BCA, CMP ####[facility] ([id number])[address], [address], [place] [address] Neutrophils/100 WBC (Bld) 81.9 % Normal [facility] Comment on above: Performed By: #### C BCA, CMP ####[facility] ([id number])[address], [address], [place] [address] Platelet mean volume (Bld) [Entitic vol] 8.7 fL Normal 7-12 [facility] Comment on above: Performed By: #### C BCA, CMP ####[facility] ([id number])[address], [address], [place] [address] Platelets (Bld) [#/Vol] 155 10*3/uL Normal 150-450 [facility] Comment on above: Performed By: #### C BCA, CMP ####[facility] ([id number])[address], [address], [place] [address] RBC COUNT 2.79 X10E12/L Low 3.80-5.20 [facility] Comment on above: Performed By: #### C BCA, CMP ####[facility] ([id number])[address], [address], [place] [address] WBC (Bld) [#/Vol] 13.5 10*3/uL High 4.0-11.0 [facility] Comment on above: Performed By: #### C MONSE, CMP ####[facility] ([id number])[address] [facility], [place] [address] CBC auto differentialon 11-29 Basophils (Bld) [#/Vol] 0.1 10*3/uL [facility] Basophils/100 WBC (Bld) 0.7 % [facility] Eosinophils (Bld) [#/Vol] 0.1 10*3/uL [facility] Eosinophils/100 WBC (Bld) 1.0 % [facility] Erythrocyte distribution width (RBC) [Ratio] 18.1 % High 11.5 - 15.0 % [facility] Hematocrit (Bld) [Volume fraction] 25.3 % Low 35 - 47 % [facility] Hemoglobin (Bld) [Mass/Vol] 8.3 g/dL Low 11.7 - 15.5 g/dL [facility] Interpretation and review of laboratory results Abnormal [facility] Lymphocytes (Bld) [#/Vol] 1.3 10*3/uL [facility] Lymphocytes/100 WBC (Bld) 9.7 % [facility] MCH (RBC) [Entitic mass] 29.9 pg 27 - 34 pg [facility] MCHC (RBC) [Mass/Vol] 33.0 [...] System RBC (Bld) [#/Vol] 2.79 10*6/uL Low [facility] WBC corrected for nucl RBC Auto (Bld) [#/Vol] 13.5 High [facility] COMPREHENSIVE METABOLIC PANE Elver 12-27-2023 Albumin [Mass/Vol] 2.4 g/dL Low 3.2-5.3 [facility] Comment on above: Performed By: #### C BCA, CMP ####[facility] ([id number])[address], [address], [place] [address] ALP [Catalytic activity/Vol] 164 U/L High 39-130 [facility] Comment on above: Performed By: #### C BCA, CMP ####[facility] ([id number])[address], [address], [place] [address] ALT [Catalytic activity/Vol] 15 U/L Normal 0-31 [facility] Comment on above: Performed By: #### C BCA, CMP ####[facility] ([id number])[address], [address], [place] [address] Anion gap [Moles/Vol] 6 mmol/L Normal 5-15 [facility] Comment on above: Performed By: #### C BCA, CMP ####[facility] ([id number])[address], [address], [place] [address] AST [Catalytic activity/Vol] 19 U/L Normal 0-41 [facility] Comment on above: Performed By: #### C BCA, CMP ####[facility] ([id number])[address], [address], [place] [address] Bilirubin [Mass/Vol] 0.5 mg/dL Normal 0.3-1.2 [facility] Comment on above: Performed By: #### C BCA, CMP ####[facility] ([id number])[address] [address] Calcium [Mass/Vol] 7.0 mg/dL Low 8.5-10.5 [facility] Comment on above: Performed By: #### C BCA, CMP ####[facility] ([id number])[address] [address], [place] [address] Chloride [Moles/Vol] 110 mmol/L High 98-109 [facility] Comment on above: Performed By: #### C BCA, CMP ####[facility] ([id number])[address] [address] [place] [address] CO2 [Moles/Vol] 21 mmol/L Low 22-32 [facility] Comment on above: Performed By: #### C BCA, CMP ####[facility] ([id number])[address] [address] Creatinine [Mass/Vol] 1.00 mg/dL Normal 0.40-1.00 [facility] Comment on above: Result Comment: METH OD TRACEABLE TO IDMS STANDARD Performed By: #### C BCA, CMP ####[facility] ([id number])[address] [address] GFR/1.73 sq M.predicted among non-blacks MDRD (S/P/Bld) [Vol rate/Area] 62 mL/min/{1.73_m2} Normal >59 [facility] Comment on above: Result Comment: Repo rted eGFR is based on theCKD-EPI 2020 equation that doesnot use a race coefficient. Performed By: #### C BCA, CMP ####[facility] ([id number])[address] [address] [place] [address] Glucose [Mass/Vol] 107 mg/dL High 65-99 [facility] Comment on above: Performed By: #### C BCA, CMP ####[facility] ([id number])[address] [place] [address] Potassium [Moles/Vol] 4.6 mmol/L Normal 3.5-5.0 [facility] Comment on above: Performed By: #### C BCA, CMP ####[facility] ([id number])[address], [address] [place] [address] Protein [Mass/Vol] 5.5 g/dL Low 6.0-8.0 [facility] Comment on above: Performed By: #### C BCA, CMP ####[facility] ([id number])[address] [address] Sodium [Moles/Vol] 137 mmol/L Normal 134-146 [facility] Comment on above: Performed By: #### C BCA, CMP ####[facility] ([id number])[address] [address] Urea nitrogen [Mass/Vol] 15 mg/dL Normal 5-27 [facility] Comment on above: Performed By: #### C BCA, CMP ####[facility] ([id number])[address] [address] Comprehensive metabolic pane elver 12-27-2023 Albumin [Mass/Vol] 2.4 g/dL Low 3.2 - 5.3 g/dL [facility] ALP [Catalytic activity/Vol] 164 U/L High 39 - 130 U/L [facility] ALT No additional P-5'-P [Catalytic activity/Vol] 15 U/L 0 - 31 U/L [facility] Anion gap [Moles/Vol] 6 mmol/L 5 - 15 mmol/L [facility] AST [Catalytic activity/Vol] 19 U/L 0 - 41 U/L [facility] Bilirubin [Mass/Vol] 0.5 mg/dL 0.3 - 1.2 mg/dL [facility] Calcium [Mass/Vol] 7.0 mg/dL Low 8.5 - 10. 5 mg/dL [facility] Chloride [Moles/Vol] 110 mmol/L High 98 - 109 mmol/L [facility] CO2 [Moles/Vol] 21 mmol/L Low 22 - 32 mmol/L [facility] Creatinine [Mass/Vol] 1.00 mg/dL 0.40 - 1.00 mg/dL [facility] eGFR (CKD-EPI)non-race dependent 62 - PINF [facility] Glucose [Mass/Vol] 107 mg/dL High 65 - 99 mg/dL [facility] Interpretation and review of laboratory results Abnormal [facility] Potassium [Moles/Vol] 4.6 mmol/L 3.5 - 5.0 mmol/L [facility] Protein [Mass/Vol] 5.5 g/dL Low 6.0 - 8.0 g/dL [facility] Sodium [Moles/Vol] 137 mmol/L 134 - 146 mmol/L [facility] Urea nitrogen [Mass/Vol] 15 mg/dL 5 - 27 mg/dL [facility] Glucose Glucometer (BldC) [M ass/Vol]on 12-27-2023 Glucose [Mass/Vol] 93 mg/dL Normal 65-99 [facility] Glucose [Mass/Vol] 93 mg/dL 65 - 99 mg/dL [facility] Glucose [Mass/Vol] 119 mg/dL High 65-99 [facility] Glucose [Mass/Vol] 119 mg/dL High 65 - 99 mg/dL [facility] Interpretation and review of laboratory results Abnormal [facility] Glucose [Mass/Vol] 126 mg/dL High 65-99 [facility] Glucose [Mass/Vol] 126 mg/dL High 65 - 99 mg/dL [facility] Interpretation and review of laboratory results Abnormal [facility] HGB AND HCTon 12-27-2023 Hematocrit (Bld) [Volume fraction] 23.8 % Low 35-47 [facility] Comment on above: Performed By: #### H H ####[facility] ([id number])[address] [place] [address], [address], [place] [address] Hemoglobin (Bld) [Mass/Vol] 8.0 g/dL Low 11.7-15.5 [facility] Comment on above: Performed By: #### H H ####[facility] ([id number])[address] [place] [address] Hematocrit (Bld) [Volume fraction] 23.8 % Low 35-47 [facility] Comment on above: Performed By: #### H H ####[facility] ([id number])[address], [address] [place] [address] Hemoglobin (Bld) [Mass/Vol] 7.8 g/dL Low 11.7-15.5 [facility] Comment on above: Performed By: #### H H ####[facility] ([id number])[address] [address] [place] [address] Hematocrit (Bld) [Volume fraction] 23.6 % Low 35-47 [facility] Comment on above: Performed By: #### H H ####[facility] ([id number])[address] [address] Hemoglobin (Bld) [Mass/Vol] 7.6 g/dL Low 11.7-15.5 [facility] Comment on above: Performed By: #### H H ####[facility] ([id number])[address] [address] Hemoglobin and hematocrit, b loodon 12-27-2023 Hematocrit (Bld) [Volume fraction] 23.8 % Low 35 - 47 % [facility] Hemoglobin (Bld) [Mass/Vol] 8.0 g/dL Low 11.7 - 15.5 g/dL [facility] Interpretation and review of laboratory results Abnormal [facility] Hematocrit (Bld) [Volume fraction] 23.8 % Low 35 - 47 % [facility] Hemoglobin (Bld) [Mass/Vol] 7.8 g/dL Low 11.7 - 15.5 g/dL [facility] Interpretation and review of laboratory results Abnormal [facility] Hematocrit (Bld) [Volume fraction] 23.6 % Low 35 - 47 % [facility] Hemoglobin (Bld) [Mass/Vol] 7.6 g/dL Low 11.7 - 15.5 g/dL [facility] Interpretation and review of laboratory results Abnormal [facility] MR Pelvis WO and W contrast Kellee 12-27-2023 Radiology Study observation (narrative) [facility] Bacteria identified Cx Nom ( U)on 12-26-2023 Interpretation and review of laboratory results Abnormal [facility] Service comment (Unsp spec) [Interp] >100,000 ORGANISMS/mL ENTEROCOCCUS SPECIES Ampicillin or Amoxicillin is the drug of choice for uncomplicated cystitis caused by enterococci. Cephalosporins are inappropriate. Abnormal [facility] Service comment (Unsp spec) [Interp] 50,000 to 100,000 ORGANISMS/mL NORMAL URO GENITAL LALY [facility] Service comment (Unsp spec) [Interp] DR MEDINA REQUESTED SUSCEPTIBILITY 12/23 [facility] CBC AND AUTO DIFFon 12-26-19 ABSOLUTE BASOPHIL 0.1 X10E9/L Normal 0.0-0.2 [facility] Comment on above: Performed By: #### C BCA, CMP ####[facility] ([id number])[address], [place] [address] ABSOLUTE NEUTROPHIL 10.4 X10E9/L High 1.5-6.6 [facility] Comment on above: Performed By: #### C BCA, CMP ####[facility] ([id number])[address], [place] [address] Basophils/100 WBC (Bld) 0.6 % Normal [facility] Comment on above: Performed By: #### C BCA, CMP ####[facility] ([id number])[address], [place] [address] Eosinophils (Bld) [#/Vol] 0.2 10*3/uL Normal 0.0-0.4 [facility] Comment on above: Performed By: #### C MONSE, CMP ####[facility] ([id number])[address], [place] [address] Eosinophils/100 WBC (Bld) 1.4 % Normal [facility] Comment on above: Performed By: #### C MONSE, CMP ####[facility] ([id number])[address] [address], [place] [address] Erythrocyte distribution width (RBC) [Ratio] 17.6 % High 11.5-15.0 [facility] Comment on above: Performed By: #### C MONSE, CMP ####[facility] ([id number])[address] [address], [place] [address] Hematocrit (Bld) [Volume fraction] 27.4 % Low 35-47 [facility] Comment on above: Performed By: #### C MONSE, CMP ####[facility] ([id number])[address] [address], [place] [address] Hemoglobin (Bld) [Mass/Vol] 8.8 g/dL Low 11.7-15.5 [facility] Comment on above: Performed By: #### C MONSE, CMP ####[facility] ([id number])[address] [address], [place] [address] Lymphocytes (Bld) [#/Vol] 1.5 10*3/uL Normal 1.0-3.5 [facility] Comment on above: Performed By: #### C MONSE, CMP ####[facility] ([id number])[address] [address], [place] [address] Lymphocytes/100 WBC (Bld) 11.6 % Normal [facility] Comment on above: Performed By: #### C BCA, CMP ####[facility] ([id number])[address] [address] MCH (RBC) [Entitic mass] 29.2 pg Normal 27-34 [facility] Comment on above: Performed By: #### C BCA, CMP ####[facility] ([id number])[address] [address] MCHC (RBC) [Mass/Vol] 32.2 g/dL Normal 32-36 [facility] Comment on above: Performed By: #### C BCA, CMP ####[facility] ([id number])[address] [address] MCV (RBC) [Entitic vol] 91 fL Normal 80-100 [facility] Comment on above: Performed By: #### C BCA, CMP ####[facility] ([id number])[address] [address] [address] Monocytes (Bld) [#/Vol] 1.1 10*3/uL High 0-0.9 [facility] Comment on above: Performed By: #### C MONSE, CMP ####[facility] ([id number])[address], [place] [address] Monocytes/100 WBC (Bld) 7.9 % Normal [facility] Comment on above: Performed By: #### C BCA, CMP ####[facility] ([id number])[address] [address] [address] Neutrophils/100 WBC (Bld) 78.5 % Normal [facility] Comment on above: Performed By: #### C BCA, CMP ####[facility] ([id number])[address] [address], [place] [address] Platelet mean volume (Bld) [Entitic vol] 8.7 fL Normal 7-12 [facility] Comment on above: Performed By: #### C BCA, CMP ####[facility] ([id number])[address] [address] [place] [id number] Platelets (Bld) [#/Vol] 170 10*3/uL Normal 150-450 [facility] Comment on above: Performed By: #### Dru SHEA, CMP ####[facility] ([id number])[address], [address] [address] RBC COUNT 3.03 X10E12/L Low 3.80-5.20 [facility] Comment on above: Performed By: #### Dru SHEA, CMP ####[facility] ([id number])[address] [address] WBC (Bld) [#/Vol] 13.3 10*3/uL High 4.0-11.0 [facility] Comment on above: Performed By: #### Dru SHEA, CMP ####[facility] ([id number])[address] [address] CBC auto differentialon 11-29 Basophils (Bld) [#/Vol] 0.1 10*3/uL [facility] Basophils/100 WBC (Bld) 0.6 % [facility] Eosinophils (Bld) [#/Vol] 0.2 10*3/uL [facility] Eosinophils/100 WBC (Bld) 1.4 % [facility] Erythrocyte distribution width (RBC) [Ratio] 17.6 % High 11.5 - 15.0 % [facility] Hematocrit (Bld) [Volume fraction] 27.4 % Low 35 - 47 % [facility] Hemoglobin (Bld) [Mass/Vol] 8.8 g/dL Low 11.7 - 15.5 g/dL [facility] Interpretation and review of laboratory results Abnormal [facility] Lymphocytes (Bld) [#/Vol] 1.5 10*3/uL [facility] System Lymphocytes/100 WBC (Bld) 11.6 % [facility] MCH (RBC) [Entitic mass] 29.2 pg 27 - 34 pg [facility] MCHC (RBC) [Mass/Vol] 32.2 g/dL 32 - 36 g/dL [facility] MCV (RBC) [Entitic vol] 91 fL 80 - 100 fL [facility] Monocytes (Bld) [#/Vol] 1.1 10*3/uL High [facility] Monocytes/100 WBC (Bld) 7.9 % [facility] Neutrophils (Bld) [#/Vol] 10.4 10*3/uL High [facility] Neutrophils/100 WBC (Bld) 78.5 % [facility] Platelet mean volume (Bld) [Entitic vol] 8.7 fL 7 - 12 fL [facility] Platelets (Bld) [#/Vol] 170 10*3/uL [facility] RBC (Bld) [#/Vol] 3.03 10*6/uL Low [facility] WBC corrected for nucl RBC Auto (Bld) [#/Vol] 13.3 High [facility] COMPREHENSIVE METABOLIC PANE Elver 12-26-2023 Albumin [Mass/Vol] 2.4 g/dL Low 3.2-5.3 [facility] Comment on above: Performed By: #### C BCA, CMP ####[facility] ([id number])[address], [place] [address] ALP [Catalytic activity/Vol] 171 U/L High 39-130 [facility] Comment on above: Performed By: #### C BCA, CMP ####[facility] ([id number])[address], [address], [place] [address] ALT [Catalytic activity/Vol] 16 U/L Normal 0-31 [facility] Comment on above: Performed By: #### C BCA, CMP ####[facility] ([id number])[address], [address], [place] [address] Anion gap [Moles/Vol] 9 mmol/L Normal 5-15 [facility] Comment on above: Performed By: #### C BCA, CMP ####[facility] ([id number])[address], [address], [place] [address] AST [Catalytic activity/Vol] 23 U/L Normal 0-41 [facility] Comment on above: Performed By: #### C BCA, CMP ####[facility] ([id number])[address], [address], [place] [address] Bilirubin [Mass/Vol] 0.6 mg/dL Normal 0.3-1.2 [facility] Comment on above: Performed By: #### C BCA, CMP ####[facility] ([id number])[address], [address], [place] [address] Calcium [Mass/Vol] 6.8 mg/dL Critically low 8.5-10.5 [facility] Comment on above: Performed By: #### C BCA, CMP ####[facility] ([id number])[address], [address], [place] [address] Chloride [Moles/Vol] 110 mmol/L High 98-109 [facility] Comment on above: Performed By: #### C BCA, CMP ####[facility] ([id number])[address], [address], [place] [address] CO2 [Moles/Vol] 18 mmol/L Low 22-32 [facility] Comment on above: Performed By: #### C BCA, CMP ####[facility] ([id number])[address], [address], [place] [address] Creatinine [Mass/Vol] 1.11 mg/dL High 0.40-1.00 [facility] Comment on above: Result Comment: METH OD TRACEABLE TO IDMS STANDARD Performed By: #### C BCA, CMP ####[facility] ([id number])[address], [address], [place] [address] GFR/1.73 sq M.predicted among non-blacks MDRD (S/P/Bld) [Vol rate/Area] 55 mL/min/{1.73_m2} Low >59 [facility] Comment on above: Result Comment: Repo rted eGFR is based on theCKD-EPI 2020 equation that doesnot use a race coefficient. Performed By: #### C BCA, CMP ####[facility] ([id number])[address], [address], [place] [address] Glucose [Mass/Vol] 112 mg/dL High 65-99 [facility] Comment on above: Performed By: #### C BCA, CMP ####[facility] ([id number])[address] [address], [place] [address] Potassium [Moles/Vol] 4.3 mmol/L Normal 3.5-5.0 [facility] Comment on above: Performed By: #### C BCA, CMP ####[facility] ([id number])[address] [address] [place] [address] Protein [Mass/Vol] 5.6 g/dL Low 6.0-8.0 [facility] Comment on above: Performed By: #### C BCA, CMP ####[facility] ([id number])[address] [address] [place] [address] Sodium [Moles/Vol] 137 mmol/L Normal 134-146 [facility] Comment on above: Performed By: #### C BCA, CMP ####[facility] ([id number])[address] [address] [place] [address] Urea nitrogen [Mass/Vol] 20 mg/dL Normal 5-27 [facility] Comment on above: Performed By: #### C BCA, CMP ####[facility] ([id number])[address] [address] [place] [address] Calcium.ionized (Bld) [Mass/ Vol]on 12-26-2023 IONIZED CALCIUM 4.1 mg/dL Low 4.5-5.3 [facility] Comment on above: Performed By: #### 3 8230-9 ####[facility] ([id number])[address] [place] [address], [address] [place] [address] Interpretation and review of laboratory results Abnormal [facility] Comprehensive metabolic pane elver 12-26-2023 Albumin [Mass/Vol] 2.4 g/dL Low 3.2 - 5.3 g/dL [facility] ALP [Catalytic activity/Vol] 171 U/L High 39 - 130 U/L [facility] ALT No additional P-5'-P [Catalytic activity/Vol] 16 U/L 0 - 31 U/L [facility] Anion gap [Moles/Vol] 9 mmol/L 5 - 15 mmol/L [facility] AST [Catalytic activity/Vol] 23 U/L 0 - 41 U/L [facility] Bilirubin [Mass/Vol] 0.6 mg/dL 0.3 - 1.2 mg/dL [facility] Calcium [Mass/Vol] 6.8 mg/dL Critically low 8.5 - 1 0.5 mg/dL [facility] Chloride [Moles/Vol] 110 mmol/L High 98 - 109 mmol/L [facility] CO2 [Moles/Vol] 18 mmol/L Low 22 - 32 mmol/L [facility] Creatinine [Mass/Vol] 1.11 mg/dL High 0.40 - 1.00 mg/dL [facility] eGFR (CKD-EPI)non-race dependent 55 Low - PINF [facility] Glucose [Mass/Vol] 112 mg/dL High 65 - 99 mg/dL [facility] Interpretation and review of laboratory results Abnormal [facility] Potassium [Moles/Vol] 4.3 mmol/L 3.5 - 5.0 mmol/L [facility] Protein [Mass/Vol] 5.6 g/dL Low 6.0 - 8.0 g/dL [facility] Sodium [Moles/Vol] 137 mmol/L 134 - 146 mmol/L [facility] Urea nitrogen [Mass/Vol] 20 mg/dL 5 - 27 mg/dL [facility] Crossmatch RBC:Number of Uni ts: 1on 12-26-2023 BB Type Barcode 5100 [facility] Blood component type [id number] [facility] Crossmatch Compatible [facility] Expiration Date [id number] [facility] Status of unit TRANSFUSED [facility] Unit ABO O [facility] Unit number [id number] [facility] RH Positive [facility] Glucose Glucometer (BldC) [M ass/Vol]on 12-26-2023 Glucose [Mass/Vol] 112 mg/dL High 65-99 [facility] Glucose [Mass/Vol] 112 mg/dL High 65 - 99 mg/dL [facility] Interpretation and review of laboratory results Abnormal [facility] Glucose [Mass/Vol] 125 mg/dL High 65-99 [facility] Glucose [Mass/Vol] 125 mg/dL High 65 - 99 mg/dL [facility] Interpretation and review of laboratory results Abnormal [facility] Glucose [Mass/Vol] 109 mg/dL High 65-99 [facility] Glucose [Mass/Vol] 109 mg/dL High 65 - 99 mg/dL [facility] Interpretation and review of laboratory results Abnormal [facility] HGB AND HCTon 12-26-2023 Hematocrit (Bld) [Volume fraction] 25.6 % Low 35-47 [facility] Comment on above: Performed By: #### H H ####[facility] ([id number])[address], [address] [place] [address] Hemoglobin (Bld) [Mass/Vol] 8.4 g/dL Low 11.7-15.5 [facility] Comment on above: Performed By: #### H H ####[facility] ([id number])[address] [facility], [address] [place] [address] Hematocrit (Bld) [Volume fraction] 21.0 % Low 35-47 [facility] Comment on above: Performed By: #### H H ####[facility] ([id number])[facility], [address] [place] [address] Hemoglobin (Bld) [Mass/Vol] 6.8 g/dL Critically low 11.7-15.5 [facility] Comment on above: Performed By: #### H H ####[facility] ([id number])[address], [address] [place] [address] Hemoglobin and hematocrit, b loodon 12-26-2023 Interpretation and review of laboratory results Abnormal [facility] Hematocrit (Bld) [Volume fraction] 21.0 % Low 35 - 47 % [facility] Hemoglobin (Bld) [Mass/Vol] 6.8 g/dL Critically low 11.7 - 15.5 g/dL [facility] Interpretation and review of laboratory results Abnormal [facility] Ionized calciumon 12-26-2023 Calcium.ionized (Bld) [Mass/Vol] 4.1 mg/dL Low 4.5 - 5.3 mg/dL [facility] Lactate (P stan) [Moles/Vol]o n 12-26-2023 LACTATE W/REFLEX 0.9 mmol/L Normal 0.4-2.0 [facility] Comment on above: Result Comment: Resu lt did not trigger repeat Lactate,re-order if needed. Performed By: #### 3 2132-1 ####[facility] ([id number])[address], [address] [place] [address] [facility] Lactate w/ Reflexon 12-26-19 Lactate (P stan) [Moles/Vol] 0.9 mmol/L 0.4 - 2.0 mmol/L [facility] Type and screen(includes ind irect aram)on 12-26-2023 ABO O [facility] Rh Nom (Bld) Positive [facility] Vancomycin trough [Mass/Vol] on 12-26-2023 VANCOMYCIN TROUGH 25.2 ug/mL Critically high 5.0-20.0 [facility] Comment on above: Performed By: #### 4 092-3 ####[facility] ([id number])[address], [address], [place] [address] Interpretation and review of laboratory results Abnormal [facility] Vancomycin, troughon 024 Vancomycin trough [Mass/Vol] 25.2 ug/mL Critically high 5.0 - 20.0 ug/mL [facility] Anti XA unfractionated hepar inon 12-25-2023 Heparin unfractionated Chromogenic method Qn (PPP) Low [facility] Bacteria identified Aer cx N om (Wound)on 12-25-2023 Interpretation and review of laboratory results Abnormal [facility] Microscopic observation Gram stain Nom (Unsp spec) >25 WHITE BLOOD CELLS/LPF [facility] Microscopic observation Gram stain Nom (Unsp spec) 10 to 24 SQUAMOUS EPITHELIAL CELLS/LPF [facility] Microscopic observation Gram stain Nom (Unsp spec) RARE GRAM POSITIVE COCCI IN CLUSTERS INTRACELLULAR EXTRACELLULAR [facility] Microscopic observation Gram stain Nom (Unsp spec) Positive Abnormal [facility] Service comment (Unsp spec) [Interp] FEW ESCHERICHIA COLI Abnormal [facility] Service comment (Unsp spec) [Interp] RARE STAPHYLOCOCCUS AUREUS METHICILLIN RESISTANT Abnormal [facility] Service comment (Unsp spec) [Interp] RARE STREPTOCOCCUS PYOGENES (GROUP A) Abnormal [facility] Service comment (Unsp spec) [Interp] ALONG WITH FEW NORMAL SKIN LALY [facility] CBC AND AUTO DIFFon 12-25-19 24 ABSOLUTE BASOPHIL 0.1 X10E9/L Normal 0.0-0.2 [facility] Comment on above: Performed By: #### C BCA, 3274-8, CMP ####[facility] ([id number])[address], [address], [place] [address] ABSOLUTE NEUTROPHIL 10.4 X10E9/L High 1.5-6.6 [facility] Comment on above: Performed By: #### C MONSE, 3274-04, CMP ####[facility] ([id number])[address], [address], [place] [address] Basophils/100 WBC (Bld) 0.5 % Normal [facility] Comment on above: Performed By: #### Dru SHEA, 3274-04, CMP ####[facility] ([id number])[address], [address], [place] [address] Eosinophils (Bld) [#/Vol] 0.1 10*3/uL Normal 0.0-0.4 [facility] Comment on above: Performed By: #### Dru SHEA, 3274-04, CMP ####[facility] ([id number])[address], [address], [place] [address] Eosinophils/100 WBC (Bld) 0.9 % Normal [facility] Comment on above: Performed By: #### Dru SHEA, 3274-04, CMP ####[facility] ([id number])[address] [address], [place] [address] Erythrocyte distribution width (RBC) [Ratio] 18.3 % High 11.5-15.0 [facility] Comment on above: Performed By: #### Dru SHEA, 3274-04, CMP ####[facility] ([id number])[address] [address], [place] [address] Hematocrit (Bld) [Volume fraction] 22.6 % Low 35-47 [facility] Comment on above: Performed By: #### Dru SHEA, 3274-04, CMP ####[facility] ([id number])[address] [address] Hemoglobin (Bld) [Mass/Vol] 7.3 g/dL Low 11.7-15.5 [facility] Comment on above: Performed By: #### Dru SHEA, 3274-04, CMP ####[facility] ([id number])[address] [address] Lymphocytes (Bld) [#/Vol] 1.4 10*3/uL Normal 1.0-3.5 [facility] Comment on above: Performed By: #### Dru SHEA, 3274-04, CMP ####[facility] ([id number])[address], [address] [place] [address] Lymphocytes/100 WBC (Bld) 10.6 % Normal [facility] Comment on above: Performed By: #### Dru SHEA, 3274-04, CMP ####[facility] ([id number])[address] [address] MCH (RBC) [Entitic mass] 29.1 pg Normal 27-34 [facility] Comment on above: Performed By: #### Dru SHEA, 3274-04, CMP ####[facility] ([id number])[address], [address] [address] MCHC (RBC) [Mass/Vol] 32.2 g/dL Normal 32-36 [facility] Comment on above: Performed By: #### Dru SHEA, 3274-04, CMP ####[facility] ([id number])[address] [address] MCV (RBC) [Entitic vol] 90 fL Normal 80-100 [facility] Comment on above: Performed By: #### Dru SHEA, 3274-04, CMP ####[facility] ([id number])[address] [address] Monocytes (Bld) [#/Vol] 1.0 10*3/uL High 0-0.9 [facility] Comment on above: Performed By: #### Dru SHEA, 3274-04, CMP ####[facility] ([id number])[address], [address] [address] Monocytes/100 WBC (Bld) 7.5 % Normal [facility] Comment on above: Performed By: #### Dru SHEA, 3274-8, CMP ####[facility] ([id number])[address], [address] [address] Neutrophils/100 WBC (Bld) 80.5 % Normal [facility] Comment on above: Performed By: #### Dru SHEA, 3274-04, CMP ####[facility] ([id number])[address], [address] [address] Platelet mean volume (Bld) [Entitic vol] 8.8 fL Normal 7-12 [facility] Comment on above: Performed By: #### Dru SHEA, 8, CMP ####[facility] ([id number])[address], [address] [address] Platelets (Bld) [#/Vol] 189 10*3/uL Normal 150-450 [facility] Comment on above: Performed By: #### Dru SHEA, 3274-04, CMP ####[facility] ([id number])[address] [address] [address] RBC COUNT 2.50 X10E12/L Low 3.80-5.20 [facility] Comment on above: Performed By: #### Dru SHEA, 3274-04, CMP ####[facility] ([id number])[address] [address] [address] WBC (Bld) [#/Vol] 13.0 10*3/uL High 4.0-11.0 [facility] Comment on above: Performed By: #### Dru SHEA, 48, CMP ####[facility] ([id number])[address] [address] [address] CBC auto differentialon 03-2 Basophils (Bld) [#/Vol] [...] 7.3 g/dL Low 11.7 - 15.5 g/dL [facility] Interpretation and review of laboratory results Abnormal [facility] Lymphocytes (Bld) [#/Vol] 1.4 10*3/uL [facility] Lymphocytes/100 WBC (Bld) 10.6 % [facility] MCH (RBC) [Entitic mass] 29.1 pg 27 - 34 pg [facility] MCHC (RBC) [Mass/Vol] 32.2 g/dL 32 - 36 g/dL [facility] MCV (RBC) [Entitic vol] 90 fL 80 - 100 fL [facility] Monocytes (Bld) [#/Vol] 1.0 10*3/uL High [facility] Monocytes/100 WBC (Bld) 7.5 % [facility] Neutrophils (Bld) [#/Vol] 10.4 10*3/uL High [facility] Neutrophils/100 WBC (Bld) 80.5 % [facility] Platelet mean volume (Bld) [Entitic vol] 8.8 fL 7 - 12 fL [facility] Platelets (Bld) [#/Vol] 189 10*3/uL [facility] RBC (Bld) [#/Vol] 2.50 10*6/uL Low [facility] WBC corrected for nucl RBC Auto (Bld) [#/Vol] 13.0 High [facility] COMPREHENSIVE METABOLIC PANE Elver 12-25-2023 Albumin [Mass/Vol] 2.1 g/dL Low 3.2-5.3 [facility] Comment on above: Performed By: #### C BCA, 3273-, CMP ####[facility] ([id number])[address], [address], [place] [address] ALP [Catalytic activity/Vol] 174 U/L High 39-130 [facility] Comment on above: Performed By: #### C BCA, 3273-8, CMP ####[facility] ([id number])[address], [address], [place] [address] ALT [Catalytic activity/Vol] 16 U/L Normal 0-31 [facility] Comment on above: Performed By: #### C MONSE, 3273-, CMP ####[facility] ([id number])[address], [address], [place] [address] Anion gap [Moles/Vol] 8 mmol/L Normal 5-15 [facility] Comment on above: Performed By: #### C BCA, 3273-8, CMP ####[facility] ([id number])[address], [address], [place] [address] AST [Catalytic activity/Vol] 23 U/L Normal 0-41 [facility] Comment on above: Performed By: #### C BCA, 3273-8, CMP ####[facility] ([id number])[address], [address], [place] [address] Bilirubin [Mass/Vol] 0.4 mg/dL Normal 0.3-1.2 [facility] Comment on above: Performed By: #### C BCA, 3273-8, CMP ####[facility] ([id number])[address], [address], [place] [address] Calcium [Mass/Vol] 6.8 mg/dL Critically low 8.5-10.5 [facility] Comment on above: Performed By: #### C BCA, 3273-8, CMP ####[facility] ([id number])[address], [place] [address] Chloride [Moles/Vol] 115 mmol/L High 98-109 [facility] Comment on above: Performed By: #### C MONSE, 3274-8, CMP ####[facility] ([id number])[address], [place] [address] CO2 [Moles/Vol] 20 mmol/L Low 22-32 [facility] Comment on above: Performed By: #### C MONSE, [address], CMP ####[facility] ([id number])[address], [address], [place] [address] Creatinine [Mass/Vol] 1.14 mg/dL High 0.40-1.00 [facility] Comment on above: Result Comment: METH OD TRACEABLE TO IDMS STANDARD Performed By: #### C MONSE, 3278, CMP ####[facility] ([id number])[address], [address], [place] [address] GFR/1.73 sq M.predicted among non-blacks MDRD (S/P/Bld) [Vol rate/Area] 53 mL/min/{1.73_m2} Low >59 [facility] Comment on above: Result Comment: Repo rted eGFR is based on theCKD-EPI 2020 equation that doesnot use a race coefficient. Performed By: #### C MONSE, [address], CMP ####[facility] ([id number])[address], [address], [place] [address] Glucose [Mass/Vol] 96 mg/dL Normal 65-99 [facility] Comment on above: Performed By: #### C MONSE, 3274-8, CMP ####[facility] ([id number])[address], [address], [place] [address] Potassium [Moles/Vol] 4.4 mmol/L Normal 3.5-5.0 [facility] Comment on above: Performed By: #### C BCA, 3274-8, CMP ####[facility] ([id number])[address], [address], [place] [address] Protein [Mass/Vol] 5.0 g/dL Low 6.0-8.0 [facility] Comment on above: Performed By: #### C BCA, 3274-8, CMP ####[facility] ([id number])[address], [place] [address] Sodium [Moles/Vol] 143 mmol/L Normal 134-146 [facility] Comment on above: Performed By: #### C BCA, 3274-8, CMP ####[facility] ([id number])[address], [place] [address] Urea nitrogen [Mass/Vol] 24 mg/dL Normal 5-27 [facility] Comment on above: Performed By: #### C BCA, 3274-8, CMP ####[facility] ([id number])[address], [address] [place] [address] Calcium.ionized (Bld) [Mass/ Vol]on 12-25-2023 IONIZED CALCIUM 4.4 mg/dL Low 4.5-5.3 [facility] Comment on above: Performed By: #### 3 8230-9 ####[facility] ([id number])[address], [place] [address] Interpretation and review of laboratory results Abnormal [facility] IONIZED CALCIUM 4.4 mg/dL Low 4.5-5.3 [facility] Comment on above: Performed By: #### 3 8230-9 ####[facility] ([id number])[address], [address] [place] [address], [place] [address] Interpretation and review of laboratory results Abnormal [facility] Comprehensive metabolic pane elver 12-25-2023 Albumin [Mass/Vol] 2.1 g/dL Low 3.2 - 5.3 g/dL [facility] ALP [Catalytic activity/Vol] 174 U/L High 39 - 130 U/L [facility] ALT No additional P-5'-P [Catalytic activity/Vol] 16 U/L 0 - 31 U/L [facility] Anion gap [Moles/Vol] 8 mmol/L 5 - 15 mmol/L [facility] AST [Catalytic activity/Vol] 23 U/L 0 - 41 U/L [facility] Bilirubin [Mass/Vol] 0.4 mg/dL 0.3 - 1.2 mg/dL [facility] Calcium [Mass/Vol] 6.8 mg/dL Critically low 8.5 - 1 0.5 mg/dL [facility] Chloride [Moles/Vol] 115 mmol/L High 98 - 109 mmol/L [facility] CO2 [Moles/Vol] 20 mmol/L Low 22 - 32 mmol/L [facility] Creatinine [Mass/Vol] 1.14 mg/dL High 0.40 - 1.00 mg/dL [facility] eGFR (CKD-EPI)non-race dependent 53 Low - PINF [facility] Glucose [Mass/Vol] 96 mg/dL 65 - 99 mg/dL [facility] Interpretation and review of laboratory results Abnormal [facility] Potassium [Moles/Vol] 4.4 mmol/L 3.5 - 5.0 mmol/L [facility] Protein [Mass/Vol] 5.0 g/dL Low 6.0 - 8.0 g/dL [facility] Sodium [Moles/Vol] 143 mmol/L 134 - 146 mmol/L [facility] Urea nitrogen [Mass/Vol] 24 mg/dL 5 - 27 mg/dL [facility] ECG 12 leadon 12-25-2023 TRACEMASTERVUE [facility] Glucose Glucometer (BldC) [M ass/Vol]on 12-25-2023 Glucose [Mass/Vol] 108 mg/dL High 65-99 [facility] Glucose [Mass/Vol] 108 mg/dL High 65 - 99 mg/dL [facility] Interpretation and review of laboratory results Abnormal [facility] Glucose [Mass/Vol] 106 mg/dL High 65-99 [facility] Glucose [Mass/Vol] 106 mg/dL High 65 - 99 mg/dL [facility] Interpretation and review of laboratory results Abnormal [facility] Glucose [Mass/Vol] 112 mg/dL High 65-99 [facility] Glucose [Mass/Vol] 112 mg/dL High 65 - 99 mg/dL [facility] Interpretation and review of laboratory results Abnormal [facility] Glucose [Mass/Vol] 99 mg/dL Normal 65-99 [facility] Glucose [Mass/Vol] 99 mg/dL 65 - 99 mg/dL [facility] HGB AND HCTon 12-25-2023 Hematocrit (Bld) [Volume fraction] 21.6 % Low 35-47 [facility] Comment on above: Performed By: #### H H ####[facility] ([id number])[address], [address], [place] [address] Hemoglobin (Bld) [Mass/Vol] 6.9 g/dL Critically low 11.7-15.5 [facility] Comment on above: Performed By: #### H H ####[facility] ([id number])[address], [address], [place] [address] Hematocrit (Bld) [Volume fraction] 24.1 % Low 35-47 [facility] Comment on above: Performed By: #### H H ####[facility] ([id number])[address], [address], [place] [address] Hemoglobin (Bld) [Mass/Vol] 7.9 g/dL Low 11.7-15.5 [facility] Comment on above: Performed By: #### H H ####[facility] ([id number])[address], [place] [address] Hematocrit (Bld) [Volume fraction] 22.2 % Low 35-47 [facility] Comment on above: Performed By: #### H H, 45576-0 ####[facility] ([id number])[address] [facility], [address] [place] [address] Hemoglobin (Bld) [Mass/Vol] 7.1 g/dL Low 11.7-15.5 [facility] Comment on above: Performed By: #### H H, 59489-5 ####[facility] ([id number])0 [facility], [address] [place] [address] Hemoglobin and hematocrit, b loodon 12-25-2023 Interpretation and review of laboratory results Abnormal [facility] Hematocrit (Bld) [Volume fraction] 24.1 % Low 35 - 47 % [facility] Hemoglobin (Bld) [Mass/Vol] 7.9 g/dL Low 11.7 - 15.5 g/dL [facility] Interpretation and review of laboratory results Abnormal [facility] Heparin unfractionated Chrom ogenic method Qn (PPP)on 12-25-2023 ANTI XA UFH <0.04 Low 0.30-0.70 [facility] Comment on above: Result Comment: Opti mal time for testing is 6 hrs post dosageThis test is specific for monitoring patientson UFH, and is not recommended for use withother Anti-Xa medications. Performed By: #### C BCA, 3274-8, CMP ####[facility] ([id number])0 [facility], [address] [place] [address] Interpretation and review of laboratory results Abnormal [facility] Ionized calciumon 12-25-2023 Calcium.ionized (Bld) [Mass/Vol] 4.4 mg/dL Low 4.5 - 5.3 mg/dL [facility] Calcium.ionized (Bld) [Mass/Vol] 4.4 mg/dL Low 4.5 - 5.3 mg/dL [facility] RESP PATHOGENS/HEVE-OxW-6kd 12-25-2023 Respiratory pathogens DNA and RNA panel CHELLY+non-probe (Nph) Normal [facility] Comment on above: Performed By: #### 8 2159-5 ####[facility] ([id number])[address] [place] [address], [address] [place] [address] Respiratory pathogens DNA an d RNA panel CHELLY+non-probe (Nph)on 12-25-2023 Adenovirus DNA CHELLY+non-probe Ql (Nph) Not detected Not Detected^No t Detected [facility] B. parapertussis [id number] DNA CHELLY+non-probe Ql (Nph) Not detected Not Detected^No t Detected [facility] B. pertussis toxin promoter region CHELLY+non-probe Ql (Nph) Not detected Not Detected^No t Detected [facility] C. pneumoniae DNA CHELLY+non-probe Ql (Nph) Not detected Not Detected^No t Detected [facility] FLUAV RNA CHELLY+non-probe Ql (Nph) Not detected Not Detected^No t Detected [facility] FLUBV RNA CHELLY+non-probe Ql (Nph) Not detected Not Detected^No t Detected [facility] HCoV 229E RNA CHELLY+non-probe Ql (Nph) Not detected Not Detected^No t Detected [facility] HCoV HKU1 RNA CHELLY+non-probe Ql (Nph) Not detected Not Detected^No t Detected [facility] HCoV NL63 RNA CHELLY+non-probe Ql (Nph) Not detected Not Detected^No t Detected [facility] HCoV OC43 RNA CHELLY+non-probe Ql (Nph) Not detected Not Detected^No t Detected [facility] hMPV RNA CHELLY+non-probe Ql (Nph) Not detected Not Detected^No t Detected [facility] M. pneumoniae DNA CHELLY+non-probe Ql (Nph) Not detected Not Detected^No t Detected [facility] Parainfluenza virus 1 RNA CHELLY+non-probe Ql (Nph) Not detected Not Detected^No t Detected [facility] Parainfluenza virus 2 RNA CHELLY+non-probe Ql (Nph) Not detected Not Detected^No t Detected [facility] Parainfluenza virus 3 RNA CHELLY+non-probe Ql (Nph) Not detected Not Detected^No t Detected [facility] Parainfluenza virus 4 RNA CHELLY+non-probe Ql (Nph) Not detected Not Detected^No t Detected [facility] Rhinovirus+Enterov irus RNA CHELLY+non-probe Ql (Nph) Not detected Not Detected^No t Detected [facility] RSV RNA CHELLY+non-probe Ql (Nph) Not detected Not Detected^No t Detected [facility] SARS-CoV-2 (COVID-19) RNA CHELLY+probe Ql (Resp) Not detected Not Detected^No t Detected [facility] Specimen source Nom (Body fld) NASO PHARYNX [facility] TROPONIN Ion 12-25-2023 Troponin I.cardiac [Mass/Vol] 0.10 ng/mL High 0.00-0.04 [facility] Comment on above: Result Comment: Conc entrations greater than or equalto 0.05 ng/ml are considered elevated.Elevations of Troponin may be due to causesother than myocardial ischemia. Recommendserial Troponin testing be performed. Performed By: #### H H, 66771-8 ####[facility] ([id number])[address] [place] [address], [address] [place] [address] Troponin Ion 12-25-2023 Troponin I.cardiac [Mass/Vol] 0.10 ng/mL High 0.00 - 0.04 ng/mL [facility] Troponin I.cardiac [Mass/Vol ]on 12-25-2023 Interpretation and review of laboratory results Abnormal [facility] Anti XA unfractionated hepar inon 12-24-2023 Heparin unfractionated Chromogenic method Qn (PPP) 0.42 [facility] BASIC METABOLIC PANLon 12-23 Anion gap [Moles/Vol] 8 mmol/L Normal 5-15 [facility] Comment on above: Performed By: #### B MP ####[facility] ([id number])[address] [place] [address], [address] [place] [address] Calcium [Mass/Vol] 6.7 mg/dL Critically low 8.5-10.5 [facility] Comment on above: Performed By: #### B MP ####[facility] ([id number])[address], [address], [place] [address] Chloride [Moles/Vol] 113 mmol/L High 98-109 [facility] Comment on above: Performed By: #### B MP ####[facility] ([id number])[address] [address], [place] [address] CO2 [Moles/Vol] 20 mmol/L Low 22-32 [facility] Comment on above: Performed By: #### B MP ####[facility] ([id number])[address] [address], [place] [address] Creatinine [Mass/Vol] 1.11 mg/dL High 0.40-1.00 [facility] Comment on above: Result Comment: METH OD TRACEABLE TO IDMS STANDARD Performed By: #### B MP ####[facility] ([id number])[address] [address] [address] GFR/1.73 sq M.predicted among non-blacks MDRD (S/P/Bld) [Vol rate/Area] 55 mL/min/{1.73_m2} Low >59 [facility] Comment on above: Result Comment: Repo rted eGFR is based on theCKD-EPI 2020 equation that doesnot use a race coefficient. Performed By: #### B MP ####[facility] ([id number])[address] [address] [address] Glucose [Mass/Vol] 95 mg/dL Normal 65-99 [facility] Comment on above: Performed By: #### B MP ####[facility] ([id number])[address] [address], [place] [address] Potassium [Moles/Vol] 4.2 mmol/L Normal 3.5-5.0 [facility] Comment on above: Performed By: #### B MP ####[facility] ([id number])[address], [address] [address] Sodium [Moles/Vol] 141 mmol/L Normal 134-146 [facility] Comment on above: Performed By: #### B MP ####[facility] ([id number])[address], [address] [address] Urea nitrogen [Mass/Vol] 26 mg/dL Normal 5-27 [facility] Comment on above: Performed By: #### B MP ####[facility] ([id number])[address], [address] [address] Basic Metabolic Panelon 11-29 Anion gap [Moles/Vol] 8 mmol/L 5 - 15 mmol/L [facility] Calcium [Mass/Vol] 6.7 mg/dL Critically low 8.5 - 1 0.5 mg/dL [facility] Chloride [Moles/Vol] 113 mmol/L High 98 - 109 mmol/L [facility] CO2 [Moles/Vol] 20 mmol/L Low 22 - 32 mmol/L [facility] Creatinine [Mass/Vol] 1.11 mg/dL High 0.40 - 1.00 mg/dL [facility] eGFR (CKD-EPI)non-race dependent 55 Low - PINF [facility] Glucose [Mass/Vol] 95 mg/dL 65 - 99 mg/dL [facility] Interpretation and review of laboratory results Abnormal [facility] Potassium [Moles/Vol] 4.2 mmol/L 3.5 - 5.0 mmol/L [facility] Sodium [Moles/Vol] 141 mmol/L 134 - 146 mmol/L [facility] Urea nitrogen [Mass/Vol] 26 mg/dL 5 - 27 mg/dL [facility] CBC AND AUTO DIFFon 12-24-19 24 ABSOLUTE BASOPHIL 0.1 X10E9/L Normal 0.0-0.2 [facility] Comment on above: Performed By: #### 3 274-8, CBCA, CMP ####[facility] ([id number])[address], [address], [place] [address] ABSOLUTE NEUTROPHIL 14.8 X10E9/L High 1.5-6.6 [facility] Comment on above: Performed By: #### 3 274-8, CBCA, CMP ####[facility] ([id number])[address], [address], [place] [address] Basophils/100 WBC (Bld) 0.3 % Normal [facility] Comment on above: Performed By: #### 3 274-8, CBCA, CMP ####[facility] ([id number])[address] [address], [place] [address] Eosinophils (Bld) [#/Vol] 0.1 10*3/uL Normal 0.0-0.4 [facility] Comment on above: Performed By: #### 3 274-8, CBCA, CMP ####[facility] ([id number])[address], [address], [place] [address] Eosinophils/100 WBC (Bld) 0.5 % Normal [facility] Comment on above: Performed By: #### 3 274-8, CBCA, CMP ####[facility] ([id number])[address] [address], [place] [address] Erythrocyte distribution width (RBC) [Ratio] 18.1 % High 11.5-15.0 [facility] Comment on above: Performed By: #### 3 274-8, CBCA, CMP ####[facility] ([id number])[address] [address] [address] Hematocrit (Bld) [Volume fraction] 24.4 % Low 35-47 [facility] Comment on above: Performed By: #### 3 274-8, CBCA, CMP ####[facility] ([id number])[address] [address] [place] [address] Hemoglobin (Bld) [Mass/Vol] 7.9 g/dL Low 11.7-15.5 [facility] Comment on above: Performed By: #### 3 274-8, CBCA, CMP ####[facility] ([id number])[address] [address] Lymphocytes (Bld) [#/Vol] 1.8 10*3/uL Normal 1.0-3.5 [facility] Comment on above: Performed By: #### 3 274-8, CBCA, CMP ####[facility] ([id number])[address] [address] Lymphocytes/100 WBC (Bld) 10.3 % Normal [facility] Comment on above: Performed By: #### 3 274-8, CBCA, CMP ####[facility] ([id number])[address] [address] MCH (RBC) [Entitic mass] 29.1 pg Normal 27-34 [facility] Comment on above: Performed By: #### 3 274-8, CBCA, CMP ####[facility] ([id number])[address] [address] MCHC (RBC) [Mass/Vol] 32.5 g/dL Normal 32-36 [facility] Comment on above: Performed By: #### 3 274-8, CBCA, CMP ####[facility] ([id number])[address] [address] MCV (RBC) [Entitic vol] 90 fL Normal 80-100 [facility] Comment on above: Performed By: #### 3 274-8, CBCA, CMP ####[facility] ([id number])[address], [address], [place] [address] Monocytes (Bld) [#/Vol] 1.1 10*3/uL High 0-0.9 [facility] Comment on above: Performed By: #### 3 274-8, CBCA, CMP ####[facility] ([id number])[address], [address] [address] Monocytes/100 WBC (Bld) 6.4 % Normal [facility] Comment on above: Performed By: #### 3 274-8, CBCA, CMP ####[facility] ([id number])[address], [address] [address] Neutrophils/100 WBC (Bld) 82.5 % Normal [facility] Comment on above: Performed By: #### 3 274-8, CBCA, CMP ####[facility] ([id number])[address], [address] [address] Platelet mean volume (Bld) [Entitic vol] 8.9 fL Normal 7-12 [facility] Comment on above: Performed By: #### 3 274-8, CBCA, CMP ####[facility] ([id number])[address] [address] [address] Platelets (Bld) [#/Vol] 211 10*3/uL Normal 150-450 [facility] Comment on above: Performed By: #### 3 274-8, CBCA, CMP ####[facility] ([id number])[address], [address], [place] [address] RBC COUNT 2.72 X10E12/L Low 3.80-5.20 [facility] Comment on above: Performed By: #### 3 274-8, CBCA, CMP ####[facility] ([id number])[address], [address] [address] WBC (Bld) [#/Vol] 17.9 10*3/uL High 4.0-11.0 [facility] Comment on above: Performed By: #### 3 274-8, CBCA, CMP ####[facility] ([id number])[address], [address], [place] [address] CBC auto differentialon 11-29 Basophils (Bld) [#/Vol] [...] [facility] Platelets (Bld) [#/Vol] 211 10*3/uL [facility] RBC (Bld) [#/Vol] 2.72 10*6/uL Low [facility] WBC corrected for nucl RBC Auto (Bld) [#/Vol] 17.9 High [facility] COMPREHENSIVE METABOLIC PANE [place] 12-24-2023 Albumin [Mass/Vol] 2.3 g/dL Low 3.2-5.3 [facility] Comment on above: Performed By: #### 3 274-8, CBCA, CMP ####[facility] ([id number])[address], [address] [address] ALP [Catalytic activity/Vol] 198 U/L High 39-130 [facility] Comment on above: Performed By: #### 3 274-8, CBCA, CMP ####[facility] ([id number])[address], [address] [address] ALT [Catalytic activity/Vol] 18 U/L Normal 0-31 [facility] Comment on above: Performed By: #### 3 274-8, CBCA, CMP ####[facility] ([id number])[address], [address], [place] [address] Anion gap [Moles/Vol] 10 mmol/L Normal 5-15 [facility] Comment on above: Performed By: #### 3 274-8, CBCA, CMP ####[facility] ([id number])[address], [address], [place] [address] AST [Catalytic activity/Vol] 23 U/L Normal 0-41 [facility] Comment on above: Performed By: #### 3 274-8, CBCA, CMP ####[facility] ([id number])[address], [address] [address] Bilirubin [Mass/Vol] 0.5 mg/dL Normal 0.3-1.2 [facility] Comment on above: Performed By: #### 3 274-8, CBCA, CMP ####[facility] ([id number])[address], [address], [place] [address] Calcium [Mass/Vol] 6.8 mg/dL Critically low 8.5-10.5 [facility] Comment on above: Performed By: #### 3 274-8, CBCA, CMP ####[facility] ([id number])[address], [address], [place] [address] Chloride [Moles/Vol] 115 mmol/L High 98-109 [facility] Comment on above: Performed By: #### 3 274-8, CBCA, CMP ####[facility] ([id number])[address], [address], [place] [address] CO2 [Moles/Vol] 19 mmol/L Low 22-32 [facility] Comment on above: Performed By: #### 3 274-8, CBCA, CMP ####[facility] ([id number])[address] [address], [place] [address] Creatinine [Mass/Vol] 1.17 mg/dL High 0.40-1.00 [facility] Comment on above: Result Comment: METH OD TRACEABLE TO IDMS STANDARD Performed By: #### 3 274-8, CBCA, CMP ####[facility] ([id number])[address] [address], [place] [address] GFR/1.73 sq M.predicted among non-blacks MDRD (S/P/Bld) [Vol rate/Area] 51 mL/min/{1.73_m2} Low >59 [facility] Comment on above: Result Comment: Repo rted eGFR is based on theCKD-EPI 2020 equation that doesnot use a race coefficient. Performed By: #### 3 274-8, CBCA, CMP ####[facility] ([id number])[address] [address], [place] [address] Glucose [Mass/Vol] 99 mg/dL Normal 65-99 [facility] Comment on above: Performed By: #### 3 274-8, CBCA, CMP ####[facility] ([id number])[address], [address], [place] [address] Potassium [Moles/Vol] 4.0 mmol/L Normal 3.5-5.0 [facility] Comment on above: Performed By: #### 3 274-8, CBCA, CMP ####[facility] ([id number])[address], [address] [address] Protein [Mass/Vol] 6.0 g/dL Normal 6.0-8.0 [facility] Comment on above: Performed By: #### 3 274-8, CBCA, CMP ####[facility] ([id number])[address], [address] [address] Sodium [Moles/Vol] 144 mmol/L Normal 134-146 [facility] Comment on above: Performed By: #### 3 274-8, CBCA, CMP ####[facility] ([id number])[address], [address], [place] [address] Urea nitrogen [Mass/Vol] 27 mg/dL Normal 5-27 [facility] Comment on above: Performed By: #### 3 274-8, CBCA, CMP ####[facility] ([id number])[address], [address], [place] [address] Calcium.ionized (Bld) [Mass/ Vol]on 12-24-2023 IONIZED CALCIUM 4.2 mg/dL Low 4.5-5.3 [facility] Comment on above: Performed By: #### 3 8230-9 ####[facility] ([id number])[address], [address], [place] [address] Interpretation and review of laboratory results Abnormal [facility] Comprehensive metabolic pane elver 12-24-2023 Albumin [Mass/Vol] 2.3 g/dL Low 3.2 - 5.3 g/dL [facility] ALP [Catalytic activity/Vol] 198 U/L High 39 - 130 U/L [facility] ALT No additional P-5'-P [Catalytic activity/Vol] 18 U/L 0 - 31 U/L [facility] Anion gap [Moles/Vol] 10 mmol/L 5 - 15 mmol/L [facility] AST [Catalytic activity/Vol] 23 U/L 0 - 41 U/L [facility] Bilirubin [Mass/Vol] 0.5 mg/dL 0.3 - 1.2 mg/dL [facility] Calcium [Mass/Vol] 6.8 mg/dL Critically low 8.5 - 1 0.5 mg/dL [facility] Chloride [Moles/Vol] 115 mmol/L High 98 - 109 mmol/L [facility] CO2 [Moles/Vol] 19 mmol/L Low 22 - 32 mmol/L [facility] Creatinine [Mass/Vol] 1.17 mg/dL High 0.40 - 1.00 mg/dL [facility] eGFR (CKD-EPI)non-race dependent 51 Low - PINF [facility] Glucose [Mass/Vol] 99 mg/dL 65 - 99 mg/dL [facility] Interpretation and review of laboratory results Abnormal [facility] Potassium [Moles/Vol] 4.0 mmol/L 3.5 - 5.0 mmol/L [facility] Protein [Mass/Vol] 6.0 g/dL 6.0 - 8.0 g/dL [facility] Sodium [Moles/Vol] 144 mmol/L 134 - 146 mmol/L [facility] Urea nitrogen [Mass/Vol] 27 mg/dL 5 - 27 mg/dL [facility] ECG 12 leadon 12-24-2023 TRACEMASTERVUE [facility] Hemoglobin and hematocrit, b loodon 12-24-2023 Hematocrit (Bld) [Volume fraction] 22.2 % Low 35 - 47 % [facility] Hemoglobin (Bld) [Mass/Vol] 7.1 g/dL Low 11.7 - 15.5 g/dL [facility] Interpretation and review of laboratory results Abnormal [facility] Heparin unfractionated Chrom ogenic method Qn (PPP)on 12-24-2023 ANTI XA UFH 0.42 IU/mL Normal 0.30-0.70 [facility] Comment on above: Result Comment: Opti mal time for testing is 6 hrs post dosageThis test is specific for monitoring patientson UFH, and is not recommended for use withother Anti-Xa medications. Performed By: #### 3 274-8, CBCA, CMP ####[facility] ([id number])[address] [facility], [address] [place] [address] Ionized calciumon 12-24-2023 Calcium.ionized (Bld) [Mass/Vol] 4.2 mg/dL Low 4.5 - 5.3 mg/dL [facility] Anti XA unfractionated hepar inon 12-23-2023 Heparin unfractionated Chromogenic method Qn (PPP) 0.31 [facility] Heparin unfractionated Chromogenic method Qn (PPP) 0.42 [facility] Blood gas, venouson 12-23-19 Arterial patency Wrist artery --pre arterial puncture [facility] Base deficit (Bld) [Moles/Vol] 5.0 mmol/L High [facility] CO2 (BldV) [Partial pressure] 26.9 mm[Hg] Low [facility] HCO3 (Bld) [Moles/Vol] 18.1 mmol/L Low [facility] Interpretation and review of laboratory results Abnormal [facility] Oxygen (BldV) [Partial pressure] 29 mm[Hg] Low [facility] Oxygen therapy source and amount [CARE] NC [facility] Oxygen/Inspired gas setting [Volume Fraction] Ventilator 28 % [facility] pH (BldV) 7.437 [pH] High 7.320 - 7.420 [facility] SaO2% Calculated from oxygen partial pressure (BldV) [Mass fraction] 58.0 % Low 80.0 - PINF % [facility] Specimen site Narrative N/A [facility] Specimen type Nom (Spec) VENOUS [facility] CBC AND AUTO DIFFon 12-23-19 ABSOLUTE BASOPHIL 0.0 X10E9/L Normal 0.0-0.2 [facility] Comment on above: Performed By: #### C BCA, CMP, , 32885-6 ####[facility] ([id number])[address], [place] [address] ABSOLUTE NEUTROPHIL 12.7 X10E9/L High 1.5-6.6 [facility] Comment on above: Performed By: #### C BCA, CMP, , 33623-8 ####[facility] ([id number])[address], [address] [place] [address] Basophils/100 WBC (Bld) 0.3 % Normal [facility] Comment on above: Performed By: #### C BCA, CMP, , 68084-7 ####[facility] ([id number])[address] [address], [place] [address] Eosinophils (Bld) [#/Vol] 0.0 10*3/uL Normal 0.0-0.4 [facility] Comment on above: Performed By: #### C BCA, CMP, , 82031-5 ####[facility] ([id number])[address], [address] [place] [address] Eosinophils/100 WBC (Bld) 0.3 % Normal [facility] Comment on above: Performed By: #### C BCA, CMP, , 96134-5 ####[facility] ([id number])[address], [address] [place] [address] Erythrocyte distribution width (RBC) [Ratio] 18.6 % High 11.5-15.0 [facility] Comment on above: Performed By: #### C BCA, CMP, , 56409-9 ####[facility] ([id number])[address], [address], [place] [address] Hematocrit (Bld) [Volume fraction] 25.4 % Low 35-47 [facility] Comment on above: Performed By: #### C BCA, CMP, , 59138-9 ####[facility] ([id number])[address], [address], [place] [address] Hemoglobin (Bld) [Mass/Vol] 8.2 g/dL Low 11.7-15.5 [facility] Comment on above: Performed By: #### C BCA, CMP, , 76765-8 ####[facility] ([id number])[address] [address], [place] [address] Lymphocytes (Bld) [#/Vol] 0.8 10*3/uL Low 1.0-3.5 [facility] Comment on above: Performed By: #### C BCA, CMP, , 11521-0 ####[facility] ([id number])[address] [address] [place] [address] Lymphocytes/100 WBC (Bld) 6.0 % Normal [facility] Comment on above: Performed By: #### C BCA, CMP, , 24168-5 ####[facility] ([id number])[address], [address], [place] [address] MCH (RBC) [Entitic mass] 29.1 pg Normal 27-34 [facility] Comment on above: Performed By: #### C BCA, CMP, , 51177-5 ####[facility] ([id number])[address] [address], [place] [address] MCHC (RBC) [Mass/Vol] 32.2 g/dL Normal 32-36 [facility] Comment on above: Performed By: #### C BCA, CMP, , 33586-5 ####[facility] ([id number])[address], [address] [address] MCV (RBC) [Entitic vol] 90 fL Normal 80-100 [facility] Comment on above: Performed By: #### C BCA, CMP, 62066-1, 72483-3 ####[facility] ([id number])[address], [address] [address] Monocytes (Bld) [#/Vol] 0.3 10*3/uL Normal 0-0.9 [facility] Comment on above: Performed By: #### C BCA, CMP, , 98537-0 ####[facility] ([id number])[address], [address], [place] [address] Monocytes/100 WBC (Bld) 2.0 % Normal [facility] Comment on above: Performed By: #### C BCA, CMP, , 69333-4 ####[facility] ([id number])[address], [address], [place] [address] Neutrophils/100 WBC (Bld) 91.4 % Normal [facility] Comment on above: Performed By: #### C BCA, CMP, , 29676-2 ####[facility] ([id number])[address], [address] [address] Platelet mean volume (Bld) [Entitic vol] 9.3 fL Normal 7-12 [facility] Comment on above: Performed By: #### C BCA, CMP, , 59007-3 ####[facility] ([id number])[address], [address], [place] [address] Platelets (Bld) [#/Vol] 176 10*3/uL Normal 150-450 [facility] Comment on above: Performed By: #### C BCA, CMP, , 55102-6 ####[facility] ([id number])[address], [address] [place] [address] RBC COUNT 2.81 X10E12/L Low 3.80-5.20 [facility] Comment on above: Performed By: #### C MONSE, CMP, , 49892-3 ####[facility] ([id number])[address], [address] [place] [address] WBC (Bld) [#/Vol] 13.9 10*3/uL High 4.0-11.0 [facility] Comment on above: Performed By: #### C MONSE, [facility], , 51389-9 ####[facility] ([id number])[address], [address] [place] [address] CBC auto differentialon 11-29 Basophils (Bld) [#/Vol] 0.0 10*3/uL [facility] Basophils/100 WBC (Bld) 0.3 % [facility] Eosinophils (Bld) [#/Vol] 0.0 10*3/uL [facility] Eosinophils/100 WBC (Bld) 0.3 % [facility] Erythrocyte distribution width (RBC) [Ratio] 18.6 % High 11.5 - 15.0 % [facility] Hematocrit (Bld) [Volume fraction] 25.4 % Low 35 - 47 % [facility] Hemoglobin (Bld) [Mass/Vol] 8.2 g/dL Low 11.7 - 15.5 g/dL [facility] Interpretation and review of laboratory results Abnormal [facility] Lymphocytes (Bld) [#/Vol] 0.8 10*3/uL Low [facility] Lymphocytes/100 WBC (Bld) 6.0 % [facility] MCH (RBC) [Entitic mass] 29.1 pg 27 - 34 pg [facility] MCHC (RBC) [Mass/Vol] 32.2 g/dL [...] 12-23-2023 Albumin [Mass/Vol] 2.3 g/dL Low 3.2-5.3 [facility] Comment on above: Performed By: #### C BCA, CMP, 04933-9, 87974-0 ####[facility] ([id number])[address], [address] [place] [address] ALP [Catalytic activity/Vol] 261 U/L High 39-130 [facility] Comment on above: Performed By: #### C BCA, CMP, , 28949-1 ####[facility] ([id number])[address], [address] [place] [address] ALT [Catalytic activity/Vol] 23 U/L Normal 0-31 [facility] Comment on above: Performed By: #### C BCA, CMP, , 92664-6 ####[facility] ([id number])[address], [address] [place] [address] Anion gap [Moles/Vol] 9 mmol/L Normal 5-15 [facility] Comment on above: Performed By: #### C BCA, CMP, , 71662-2 ####[facility] ([id number])[address], [address], [place] [address] AST [Catalytic activity/Vol] 33 U/L Normal 0-41 [facility] Comment on above: Performed By: #### C BCA, CMP, , 95557-9 ####[facility] ([id number])[address], [address], [place] [address] Bilirubin [Mass/Vol] 0.5 mg/dL Normal 0.3-1.2 [facility] Comment on above: Performed By: #### C BCA, CMP, , 54772-0 ####[facility] ([id number])[address], [address], [place] [address] Calcium [Mass/Vol] 7.1 mg/dL Low 8.5-10.5 [facility] Comment on above: Performed By: #### C BCA, CMP, , 67190-5 ####[facility] ([id number])[address], [address], [place] [address] Chloride [Moles/Vol] 111 mmol/L High 98-109 [facility] Comment on above: Performed By: #### C BCA, CMP, , 20289-8 ####[facility] ([id number])[address], [address], [place] [address] CO2 [Moles/Vol] 22 mmol/L Normal 22-32 [facility] Comment on above: Performed By: #### C BCA, CMP, , 53651-2 ####[facility] ([id number])[address], [address], [place] [address] Creatinine [Mass/Vol] 1.17 mg/dL High 0.40-1.00 [facility] Comment on above: Result Comment: METH OD TRACEABLE TO IDMS STANDARD Performed By: #### C BCA, CMP, , 04082-1 ####[facility] ([id number])[address] [address], [place] [address] GFR/1.73 sq M.predicted among non-blacks MDRD (S/P/Bld) [Vol rate/Area] 51 mL/min/{1.73_m2} Low >59 [facility] Comment on above: Result Comment: Repo rted eGFR is based on theCKD-EPI 2020 equation that doesnot use a race coefficient. Performed By: #### C BCA, CMP, , 08874-8 ####[facility] ([id number])[address] [address], [place] [address] Glucose [Mass/Vol] 79 mg/dL Normal 65-99 [facility] Comment on above: Performed By: #### C BCA, CMP, , 71833-9 ####[facility] ([id number])[address] [address], [place] [address] Potassium [Moles/Vol] 4.5 mmol/L Normal 3.5-5.0 [facility] Comment on above: Performed By: #### C BCA, CMP, , 75648-7 ####[facility] ([id number])[address] [address], [place] [address] Protein [Mass/Vol] 6.2 g/dL Normal 6.0-8.0 [facility] Comment on above: Performed By: #### C BCA, CMP, , 27000-6 ####[facility] ([id number])[address] [address], [place] [address] Sodium [Moles/Vol] 142 mmol/L Normal 134-146 [facility] Comment on above: Performed By: #### C BCA, CMP, , 95906-1 ####[facility] ([id number])[address], [address], [place] [address] Urea nitrogen [Mass/Vol] 25 mg/dL Normal 5-27 [facility] Comment on above: Performed By: #### C BCA, CMP, 79611-0, 69118-6 ####[facility] ([id number])[address], [address], [place] [address] Comprehensive metabolic pane elver 12-23-2023 Albumin [Mass/Vol] 2.3 g/dL Low 3.2 - 5.3 g/dL [facility] ALP [Catalytic activity/Vol] 261 U/L High 39 - 130 U/L [facility] ALT No additional P-5'-P [Catalytic activity/Vol] 23 U/L 0 - 31 U/L [facility] Anion gap [Moles/Vol] 9 mmol/L 5 - 15 mmol/L [facility] AST [Catalytic activity/Vol] 33 U/L 0 - 41 U/L [facility] Bilirubin [Mass/Vol] 0.5 mg/dL 0.3 - 1.2 mg/dL [facility] Calcium [Mass/Vol] 7.1 mg/dL Low 8.5 - 10. 5 mg/dL [facility] Chloride [Moles/Vol] 111 mmol/L High 98 - 109 mmol/L [facility] CO2 [Moles/Vol] 22 mmol/L 22 - 32 mmol/L [facility] Creatinine [Mass/Vol] 1.17 mg/dL High 0.40 - 1.00 mg/dL [facility] eGFR (CKD-EPI)non-race dependent 51 Low - PINF [facility] Glucose [Mass/Vol] 79 mg/dL 65 - 99 mg/dL [facility] Interpretation and review of laboratory results Abnormal [facility] Potassium [Moles/Vol] 4.5 mmol/L 3.5 - 5.0 mmol/L [facility] Protein [Mass/Vol] 6.2 g/dL 6.0 - 8.0 g/dL [facility] Sodium [Moles/Vol] 142 mmol/L 134 - 146 mmol/L [facility] Urea nitrogen [Mass/Vol] 25 mg/dL 5 - 27 mg/dL [facility] ECG 12 leadon 12-23-2023 TRACEMASTERVUE [facility] FECAL OCCULT BLOODon 024 Hemoglobin.gastroi ntestinal Ql (Stl) Negative Normal NEG [facility] Comment on above: Performed By: #### 2 335-8 ####[facility] ([id number])[address], [address] [place] [address] GLUCOSEon 12-23-2023 Glucose [Mass/Vol] 97 mg/dL Normal 65-99 [facility] Comment on above: Performed By: #### 1 0839-9, 2345-7 ####[facility] ([id number])[address], [address] [place] [address] Glucose Glucometer (BldC) [M ass/Vol]on 12-23-2023 Glucose [Mass/Vol] 104 mg/dL High 65-99 [facility] Glucose [Mass/Vol] 104 mg/dL High 65 - 99 mg/dL [facility] Interpretation and review of laboratory results Abnormal [facility] Glucose [Mass/Vol] 116 mg/dL High 65-99 [facility] Glucose [Mass/Vol] 116 mg/dL High 65 - 99 mg/dL [facility] Interpretation and review of laboratory results Abnormal [facility] Glucose [Mass/Vol] 88 mg/dL Normal 65-99 [facility] Glucose [Mass/Vol] 104 mg/dL High 65-99 [facility] Glucose [Mass/Vol] 88 mg/dL 65 - 99 mg/dL [facility] Glucose [Mass/Vol] 104 mg/dL High 65 - 99 mg/dL [facility] Interpretation and review of laboratory results Abnormal [facility] Glucose [Mass/Vol] 98 mg/dL Normal 65-99 [facility] Glucose [Mass/Vol] 98 mg/dL 65 - 99 mg/dL [facility] Glucose [Mass/Vol] 79 mg/dL Normal 65-99 [facility] Glucose [Mass/Vol] 79 mg/dL 65 - 99 mg/dL [facility] Glucose [Mass/Vol]on 024 [facility] Glucose random or fastingon 12-23-2023 Glucose [Mass/Vol] 97 mg/dL 65 - 99 mg/dL [facility] HGB AND HCTon 12-23-2023 Hematocrit (Bld) [Volume fraction] 24.5 % Low 35-47 [facility] Comment on above: Performed By: #### H H ####[facility] ([id number])[address], [address] [place] [address] Hemoglobin (Bld) [Mass/Vol] 8.1 g/dL Low 11.7-15.5 [facility] Comment on above: Performed By: #### H H ####[facility] ([id number])[address], [address] [place] [address] Hematocrit (Bld) [Volume fraction] 22.5 % Low 35-47 [facility] Comment on above: Performed By: #### H H ####[facility] ([id number])[address], [address] [place] [address] Hemoglobin (Bld) [Mass/Vol] 7.3 g/dL Low 11.7-15.5 [facility] Comment on above: Performed By: #### H H ####[facility] ([id number])[address], [address] [place] [address] Hemoglobin and hematocrit, b loodon 12-23-2023 Hematocrit (Bld) [Volume fraction] 24.5 % Low 35 - 47 % [facility] Hemoglobin (Bld) [Mass/Vol] 8.1 g/dL Low 11.7 - 15.5 g/dL [facility] Interpretation and review of laboratory results Abnormal [facility] Hematocrit (Bld) [Volume fraction] 22.5 % Low 35 - 47 % [facility] Hemoglobin (Bld) [Mass/Vol] 7.3 g/dL Low 11.7 - 15.5 g/dL [facility] Interpretation and review of laboratory results Abnormal [facility] Hemoglobin.gastrointestinal Ql (Stl)on 12-23-2023 [facility] Heparin unfractionated Chrom ogenic method Qn (PPP)on 12-23-2023 ANTI XA UFH 0.31 IU/mL Normal 0.30-0.70 [facility] Comment on above: Result Comment: Opti mal time for testing is 6 hrs post dosageThis test is specific for monitoring patientson UFH, and is not recommended for use withother Anti-Xa medications. Performed By: #### 3 274-8 ####[facility] ([id number])[address], [address] [address] [facility] ANTI XA UFH 0.42 IU/mL Normal 0.30-0.70 [facility] Comment on above: Result Comment: Opti mal time for testing is 6 hrs post dosageThis test is specific for monitoring patientson UFH, and is not recommended for use withother Anti-Xa medications. Performed By: #### 3 274-8 ####[facility] ([id number])[address], [address] [place] [address] [facility] MAGNESIUMon 12-23-2023 Magnesium [Mass/Vol] 1.9 mg/dL Normal 1.8-2.6 [facility] Comment on above: Performed By: #### C BCA, CMP, 89679-2, 49589-1 ####[facility] ([id number])[address], [address] [place] [address] Magnesiumon 12-23-2023 Magnesium [Mass/Vol] 1.9 mg/dL 1.8 - 2.6 mg/dL [facility] No Panel Informationon 12-22 [facility] Occult blood x 1, stoolon Hemoglobin.gastroi ntestinal Ql (Stl) Negative Negative^Yvette guzman [facility] TROPONIN Ion 12-23-2023 Troponin I.cardiac [Mass/Vol] 0.33 ng/mL High 0.00-0.04 [facility] Comment on above: Result Comment: Conc entrations greater than or equalto 0.05 ng/ml are considered elevated.Elevations of Troponin may be due to causesother than myocardial ischemia. Recommendserial Troponin testing be performed. Performed By: #### 1 0839-9, 2345-7 ####[facility] ([id number])[address] [place] [address], [address] [address] Troponin I.cardiac [Mass/Vol] 0.34 ng/mL High 0.00-0.04 [facility] Comment on above: Result Comment: Conc entrations greater than or equalto 0.05 ng/ml are considered elevated.Elevations of Troponin may be due to causesother than myocardial ischemia. Recommendserial Troponin testing be performed. Performed By: #### 1 0839-9 ####[facility] ([id number])[address] [place] [address], [address] [address] Troponin I.cardiac [Mass/Vol] 0.58 ng/mL Critically high 0.00-0.04 [facility] Comment on above: Result Comment: Conc entrations greater than or equalto 0.05 ng/ml are considered elevated.Elevations of Troponin may be due to causesother than myocardial ischemia. Recommendserial Troponin testing be performed. Performed By: #### C BCA, CMP, 21265-2, 28446-7 ####[facility] ([id number])[address] [facility], [address] [place] [address] Troponin Ion 12-23-2023 Troponin I.cardiac [Mass/Vol] 0.33 ng/mL High 0.00 - 0.04 ng/mL [facility] Troponin I.cardiac [Mass/Vol] 0.34 ng/mL High 0.00 - 0.04 ng/mL [facility] Troponin I.cardiac [Mass/Vol] 0.58 ng/mL Critically high 0.00 - 0.04 ng/mL [facility] Troponin I.cardiac [Mass/Vol ]on 12-23-2023 Interpretation and review of laboratory results Abnormal [facility] Interpretation and review of laboratory results Abnormal [facility] Interpretation and review of laboratory results Abnormal [facility] Type and screenon 12-23-2023 ABO O [facility] Rh Nom (Bld) Positive [facility] US.doppler Lower extremity v ein - bilateralon 12-23-2023 PM CARDIOVASCULAR [facility] Radiology Study observation (narrative) [facility].doppler Lower extremity v ein - bilateralOrdered By: Liban Prakash on 12-23-2023 [facility] Work Phone: VENOUS BLOOD GASon RONNIE'S TEST Normal [facility] Comment on above: Performed By: #### V BG ####[facility] ([id number])[address] [place] [address] BASE,DEFICIT 5.0 MMOL/L High 0.0-2.0 [facility] Comment on above: Performed By: #### V BG ####[facility] ([id number])[address] [place] [address] Body temperature 98.6 [degF] Normal 37.0 [facility] Comment on above: Performed By: #### V BG ####[facility] ([id number])[address] [facility] [place] [address] HCO3 (Bld) [Moles/Vol] 18.1 mmol/L Low 20.0-24.0 [facility] Comment on above: Performed By: #### V BG ####[facility] ([id number])[address] [facility] [address] INSP. O2 CONC. 28 % Normal [facility] Comment on above: Performed By: #### V BG ####[facility] ([id number])[address] [facility] [place] [address] Oxygen saturation in Blood 58.0 % Low >80.0 [facility] Comment on above: Performed By: #### V BG ####[facility] ([id number])[address] [facility] [address] OXYGEN SOURCE NC Normal [facility] Comment on above: Performed By: #### V BG ####[facility] ([id number])[address] [facility] [place] [address] PCO2, VENOUS 26.9 MMHG Low 35-50 [facility] Comment on above: Performed By: #### V BG ####[facility] ([id number])[address] [facility] [address] PH, VENOUS 7.437 High 7.320-7.420 [facility] Comment on above: Performed By: #### V BG ####[facility] ([id number])[address] [facility] [address] PO2, VENOUS 29 MMHG Low 30-50 [facility] Comment on above: Performed By: #### V BG ####[facility] ([id number])[address] [facility] [place] [address] SAMPLE SITE N/A Normal [facility] Comment on above: Performed By: #### V BG ####[facility] ([id number])[address] [facility] [place] [address] SAMPLE TYPE VENOUS Normal [facility] Comment on above: Performed By: #### V BG ####[facility] ([id number])[address] [address] XR CHEST 1 VWon 12-23-2023 XR CHEST 1 VW Normal [facility] XR Chest Single viewon 12-22 [facility]ACS [facility] Radiology Study observation (narrative) [facility] XR Chest Single viewOrdered By: Yany Vargas on 12-23-2023 [facility] Work Phone: ADD ON Urinalysis (if urine dip already complete)on 12-22-2023 Interpretation and review of laboratory results Abnormal [facility] Mucus Ql (Urine sed) PRESENT Abnormal NONE^NONE [facility] RBC Auto (Urine sed) [#/Area] 3 [facility] WBC Auto (Urine sed) [#/Area] 40 High [facility] APTTon 12-22-2023 aPTT Coag (PPP) [Time] Critically high [facility] BASIC METABOLIC PANELon 11-29 Anion gap [Moles/Vol] 14 mmol/L Normal 7-20 [facility] Comment on above: Performed By: #### L [id number] #### [facility] ([facility]AKER) [address] [place] [address] Calcium [Mass/Vol] 7.7 mg/dL Low 8.6-10.3 [facility] Comment on above: Performed By: #### L [id number] #### [facility] ([facility]) [address] [place] [address] Chloride [Moles/Vol] 103 mmol/L Normal 98-107 [facility] Comment on above: Performed By: #### L [id number] #### [facility] ([facility]) [address] [place] [address] CO2 [Moles/Vol] 24 mmol/L Normal 21-31 [facility] Comment on above: Performed By: #### L [id number] #### [facility] ([facility]) [address] [place] [address] Creatinine [Mass/Vol] 1.33 mg/dL High 0.60-1.20 [facility] Comment on above: Performed By: #### L [id number] #### [facility] ([facility]) [address] [place] [address] GLOMERULAR FILTRATION RATE ML/MIN/1.73 SQ M.PREDICTED 44.1 mL/min/1.73m*2 Low >60.0 [facility] Comment on above: Result Comment: [facility]???s estimated glomerular filtration rate (eGFR) will no [...] individuals. Performed By: #### L [id number] #### [facility] ([facility]) [address] [place] [address] Glucose [Mass/Vol] 113 mg/dL High 70-100 [facility] Comment on above: Performed By: #### L [id number] #### [facility] ([facility]) [address] [place] [address] Potassium [Moles/Vol] 4.4 mmol/L Normal 3.5-5.1 [facility] Comment on above: Performed By: #### L [id number] #### [facility] ([facility]) [address] [place] [address] Sodium [Moles/Vol] 137 mmol/L Normal 136-145 [facility] Comment on above: Performed By: #### L [id number] #### [facility] ([facility]) [address] [place] [address] Urea nitrogen [Mass/Vol] 29 mg/dL High 7-25 [facility] Comment on above: Performed By: #### L [id number] #### [facility] ([facility]ER) [address] [place] [address] UREA NITROGEN/CREATININ E (MASS RATIO) IN SER/PLAS 21.8 Normal [facility] Comment on above: Performed By: #### L [id number] #### [facility] (BEAKER) [address] [place] [address] BASIC METABOLIC PANLon 12-21 Anion gap [Moles/Vol] 13 mmol/L Normal 5-15 [facility] Comment on above: Performed By: #### C BCA, 51870-1, BMP, 3040-3, LIVR, 43589-1, 44961-5, 2276-4 ####[facility] ([id number])[address], [place] [address] Calcium [Mass/Vol] 7.8 mg/dL Low 8.5-10.5 [facility] Comment on above: Performed By: #### C BCA, 41055-3, BMP, 3040-3, LIVR, 88145-2, 27868-4, 2276-4 ####[facility] ([id number])[address], [place] [address] Chloride [Moles/Vol] 105 mmol/L Normal 98-109 [facility] Comment on above: Performed By: #### C BCA, 86398-7, BMP, 3040-3, LIVR, 15280-4, 60370-2, 2276-4 ####[facility] ([id number])[address] [address] CO2 [Moles/Vol] 24 mmol/L Normal 22-32 [facility] Comment on above: Performed By: #### C BCA, 78820-9, BMP, 3040-3, LIVR, 41021-7, 82366-2, 2276-4 ####[facility] ([id number])[address], [place] [address] Creatinine [Mass/Vol] 1.38 mg/dL High 0.40-1.00 [facility] Comment on above: Result Comment: METH OD TRACEABLE TO IDMS STANDARD Performed By: #### C BCA, 31997-2, BMP, 3040-3, LIVR, 50930-9, 02529-5, 2276-4 ####[facility] ([id number])[address] [place] [address] GFR/1.73 sq M.predicted among non-blacks MDRD (S/P/Bld) [Vol rate/Area] 42 mL/min/{1.73_m2} Low >59 [facility] Comment on above: Result Comment: Repo rted eGFR is based on theCKD-EPI 2020 equation that doesnot use a race coefficient. Performed By: #### C BCA, 93088-4, BMP, 3040-3, LIVR, 58962-9, 61459-6, 6-4 ####[facility] ([id number])[address], [address] [place] [address] Glucose [Mass/Vol] 42 mg/dL Critically low 65-99 [facility] Comment on above: Performed By: #### C BCA, 75006-6, BMP, 3040-3, LIVR, 15619-6, 91819-2, 6-4 ####[facility] ([id number])[address], [address], [place] [address] Potassium [Moles/Vol] 4.5 mmol/L Normal 3.5-5.0 [facility] Comment on above: Performed By: #### C BCA, 44004-0, BMP, 3040-3, LIVR, 54967-7, 41548-9, 2276-4 ####[facility] ([id number])[address], [address], [place] [address] Sodium [Moles/Vol] 142 mmol/L Normal 134-146 [facility] Comment on above: Performed By: #### C BCA, 10373-7, BMP, 3040-3, LIVR, 67073-1, 61837-5, 2276-4 ####[facility] ([id number])[address], [address] [place] [address] Urea nitrogen [Mass/Vol] 32 mg/dL High 5-27 [facility] Comment on above: Performed By: #### C BCA, 66479-1, BMP, 3040-3, LIVR, 10211-7, 83829-3, 6-4 ####[facility] ([id number])[address], [address] [place] [address] BLOOD CULTUREon 12-22-2023 Bacteria identified Aer cx Nom (Bld) CULTURE RESULTS NO GROWTH 5 DAYS Normal [facility] Basic Metabolic Panelon 11-29 Anion gap [Moles/Vol] 13 mmol/L 5 - 15 mmol/L [facility] Calcium [Mass/Vol] 7.8 mg/dL Low 8.5 - 10. 5 mg/dL [facility] Chloride [Moles/Vol] 105 mmol/L 98 - 109 mmol/L [facility] CO2 [Moles/Vol] 24 mmol/L 22 - 32 mmol/L [facility] Creatinine [Mass/Vol] 1.38 mg/dL High 0.40 - 1.00 mg/dL [facility] eGFR (CKD-EPI)non-race dependent 42 Low - PINF [facility] Glucose [Mass/Vol] 42 mg/dL Critically low 65 - 99 mg/dL [facility] Interpretation and review of laboratory results Abnormal [facility] Potassium [Moles/Vol] 4.5 mmol/L 3.5 - 5.0 mmol/L [facility] Sodium [Moles/Vol] 142 mmol/L 134 - 146 mmol/L [facility] Urea nitrogen [Mass/Vol] 32 mg/dL High 5 - 27 mg/dL [facility] CBCon 12-22-2023 Erythrocyte distribution width (RBC) [Ratio] 17.2 % High 11.5-15.0 [facility] Comment on above: Performed By: #### L [id number] #### [facility] ([facility]) [address] [place] [address] ERYTHROCYTE MEAN CORPUSCULAR HEMOGLOBIN CONCENTRATION (G/DL) BY AUTOMATED 31.2 g/dL Low 32.0-35.0 [facility] Comment on above: Performed By: #### L [id number] #### [facility] ([facility]) [address] [place] [address] Hematocrit (Bld) [Volume fraction] 26.9 % Low 36.0-48.0 [facility] Comment on above: Performed By: #### L [id number] #### [facility] ([facility]) [address] [place] [address] Hemoglobin (Bld) [Mass/Vol] 8.4 g/dL Low 12.0-15.0 [facility] Comment on above: Performed By: #### L [id number] #### [facility] ([facility]) [address] [place] [address] MCH (RBC) [Entitic mass] 28.9 pg Normal 27.0-33.0 [facility] Comment on above: Performed By: #### L [id number] #### [facility] ([facility]) [address] [place] [address] MCV (RBC) [Entitic vol] 92.4 fL Normal 82.0-98.0 [facility] Comment on above: Performed By: #### L [id number] #### [facility] ([facility]) [address] [place] [address] PLATELETS (10*3/UL) IN BLOOD AUTOMATED COUNT 200 10*3/uL Normal 150-400 [facility] Comment on above: Performed By: #### L [id number] #### [facility] ([facility]) [address] [place] [address] RBC (Bld) [#/Vol] 2.91 10*6/uL Low 3.80-5.00 [facility] Comment on above: Performed By: #### L [id number] #### [facility] ([facility]) [address] [place] [address] WBC (Bld) [#/Vol] 15.86 10*3/uL High 4.00-10.60 [facility] Comment on above: Performed By: #### L [id number] #### [facility] ([facility]) [address] [facility] [place] [address] CBC AND AUTO DIFFon 12-22-19 24 ABSOLUTE BASOPHIL 0.0 X10E9/L Normal 0.0-0.2 [facility] Comment on above: Performed By: #### C BCA, 16974-7, BMP, 3040-3, LIVR, 30980-6, 15725-3, 2275-4 ####[facility] ([id number])[address], [address] [address] ABSOLUTE NEUTROPHIL 12.8 X10E9/L High 1.5-6.6 [facility] Comment on above: Performed By: #### C BCA, 58929-2, BMP, 3040-3, LIVR, 02337-5, 46862-2, 2275-4 ####[facility] ([id number])[address], [address] [address] Basophils/100 WBC (Bld) 0.2 % Normal [facility] Comment on above: Performed By: #### C BCA, 93250-8, BMP, 3040-3, LIVR, 73011-4, 52946-6, 6-4 ####[facility] ([id number])[address], [address] [address] Eosinophils (Bld) [#/Vol] 0.2 10*3/uL Normal 0.0-0.4 [facility] Comment on above: Performed By: #### C BCA, 92868-2, BMP, 3040-3, LIVR, 03712-8, 76142-1, 2276-4 ####[facility] ([id number])[address], [address] [place] [address] Eosinophils/100 WBC (Bld) 1.3 % Normal [facility] Comment on above: Performed By: #### C BCA, 72726-0, BMP, 3040-3, LIVR, 64836-3, 25640-0, 6-4 ####[facility] ([id number])[address], [address] [place] [address] Erythrocyte distribution width (RBC) [Ratio] 18.3 % High 11.5-15.0 [facility] Comment on above: Performed By: #### C BCA, 81279-5, BMP, 3040-3, LIVR, 38549-9, 27948-0, 6-4 ####[facility] ([id number])[address], [address] [place] [address] Hematocrit (Bld) [Volume fraction] 24.3 % Low 35-47 [facility] Comment on above: Performed By: #### C BCA, 67058-4, BMP, 3040-3, LIVR, 54935-7, 75887-4, 6-4 ####[facility] ([id number])[address], [address] [place] [address] Hemoglobin (Bld) [Mass/Vol] 8.1 g/dL Low 11.7-15.5 [facility] Comment on above: Performed By: #### C BCA, 77139-6, BMP, 3040-3, LIVR, 54554-6, 92435-2, 2276-4 ####[facility] ([id number])[address] [address] Lymphocytes (Bld) [#/Vol] 1.5 10*3/uL Normal 1.0-3.5 [facility] Comment on above: Performed By: #### C BCA, 32684-6, BMP, 3040-3, LIVR, 06771-0, 47433-2, 2276-4 ####[facility] ([id number])[address] [address] Lymphocytes/100 WBC (Bld) 9.5 % Normal [facility] Comment on above: Performed By: #### C BCA, 94727-6, BMP, 3040-3, LIVR, 68936-2, 02076-8, 6-4 ####[facility] ([id number])[address] [address] MCH (RBC) [Entitic mass] 29.5 pg Normal 27-34 [facility] Comment on above: Performed By: #### C BCA, 24211-6, BMP, 3040-3, LIVR, 16158-0, 54237-8, 6-4 ####[facility] ([id number])[address] [address] MCHC (RBC) [Mass/Vol] 33.4 g/dL Normal 32-36 [facility] Comment on above: Performed By: #### C BCA, 64482-7, BMP, 3040-3, LIVR, 28768-6, 16502-1, 2276-4 ####[facility] ([id number])[address] [address] MCV (RBC) [Entitic vol] 88 fL Normal 80-100 [facility] Comment on above: Performed By: #### C BCA, 76922-6, BMP, 3040-3, LIVR, 76514-3, 31465-8, 6-4 ####[facility] ([id number])[address], [address], [place] [address] Monocytes (Bld) [#/Vol] 1.3 10*3/uL High 0-0.9 [facility] Comment on above: Performed By: #### C BCA, 70065-8, BMP, 3040-3, LIVR, 53251-6, 19986-7, 2276-4 ####[facility] ([id number])[address], [address] [place] [address] Monocytes/100 WBC (Bld) 8.4 % Normal [facility] Comment on above: Performed By: #### C BCA, 38621-9, BMP, 3040-3, LIVR, 54225-3, 65733-2, 2276-4 ####[facility] ([id number])[address], [address] [place] [address] Neutrophils/100 WBC (Bld) 80.6 % Normal [facility] Comment on above: Performed By: #### C BCA, 69592-7, BMP, 3040-3, LIVR, 74765-5, 94877-1, 2276-4 ####[facility] ([id number])[address], [address] [place] [address] Platelet mean volume (Bld) [Entitic vol] 9.3 fL Normal 7-12 [facility] Comment on above: Performed By: #### C BCA, 14449-7, BMP, 3040-3, LIVR, 79519-5, 43610-3, 2276-4 ####[facility] ([id number])[address], [address] [place] [address], [place] [address] Platelets (Bld) [#/Vol] 197 10*3/uL Normal 150-450 [facility] Comment on above: Performed By: #### C BCA, 34087-6, BMP, 3040-3, LIVR, 23052-6, 91763-3, 2276-4 ####[facility] ([id number])[address], [address], [place] [address] RBC COUNT 2.76 X10E12/L Low 3.80-5.20 [facility] Comment on above: Performed By: #### C BCA, 11750-2, BMP, 3040-3, LIVR, 31390-1, 83391-1, 2276-4 ####[facility] ([id number])[address], [address] [place] [address] WBC (Bld) [#/Vol] 15.9 10*3/uL High 4.0-11.0 [facility] Comment on above: Performed By: #### C BCA, 77398-9, BMP, 3040-3, LIVR, 50372-4, 43582-8, 2276-4 ####[facility] ([id number])[address], [address] [address] CBC auto differentialon 11-29 Basophils (Bld) [#/Vol] 0.0 10*3/uL [facility] Basophils/100 WBC (Bld) 0.2 % [facility] Eosinophils (Bld) [#/Vol] 0.2 10*3/uL [facility] Eosinophils/100 WBC (Bld) 1.3 % [facility] Erythrocyte distribution width (RBC) [Ratio] 18.3 % High 11.5 - 15.0 % [facility] Hematocrit (Bld) [Volume fraction] 24.3 % Low 35 - 47 % [facility] Hemoglobin (Bld) [Mass/Vol] 8.1 g/dL Low 11.7 - 15.5 g/dL [facility] Interpretation and review of laboratory results Abnormal [facility] Lymphocytes (Bld) [#/Vol] 1.5 10*3/uL [facility] Lymphocytes/100 WBC (Bld) 9.5 % [facility] MCH (RBC) [Entitic mass] 29.5 pg 27 - 34 pg [facility] MCHC (RBC) [Mass/Vol] 33.4 g/dL 32 - 36 g/dL [facility] MCV (RBC) [Entitic vol] 88 fL 80 - 100 fL [facility] Monocytes (Bld) [#/Vol] 1.3 10*3/uL High [facility] Monocytes/100 WBC (Bld) 8.4 % [facility] Neutrophils (Bld) [#/Vol] 12.8 10*3/uL High [facility] Neutrophils/100 WBC (Bld) 80.6 % [facility] Platelet mean volume (Bld) [Entitic vol] 9.3 fL 7 - 12 fL [facility] Platelets (Bld) [#/Vol] 197 10*3/uL [facility] RBC (Bld) [#/Vol] 2.76 10*6/uL Low [facility] WBC corrected for nucl RBC Auto (Bld) [#/Vol] 15.[address] [facility] CT ABDOMEN AND PELVIS W CONT on 12-22-2023 CT ABDOMEN AND PELVIS W CONT Normal [facility] CT Abdomen and Pelvis W cont rast [facility] CT Abdomen and Pelvis W cont rast IVOrdered By: Krystal Crowley on 12-22-2023 [facility] Work Phone: CT CHEST W CONTon 12-22-2023 CT CHEST W CONT Normal [facility] CT Chest limited W contrast Kellee [facility] CT Chest limited W contrast IVOrdered By: Gracie Ontiveros on 12-22-2023 [facility] Work Phone: Creatinine (Bld) [Mass/Vol]o n 12-22-2023 Creatinine [Mass/Vol] 1.4 mg/dL High 0.4-1.0 [facility] Comment on above: Result Comment: METH OD TRACEABLE TO IDMS STANDARD Performed By: #### 3 8483-4 ####[facility] ([id number])[address] [facility] [place] [address] GFR/1.73 sq M.predicted among non-blacks MDRD (S/P/Bld) [Vol rate/Area] 41 mL/min/{1.73_m2} Low >59 [facility] Comment on above: Result Comment: Repo rted eGFR is based on theCKD-EPI 2020 equation that doesnot use a race coefficient. Performed By: #### 3 8483-4 ####[facility] ([id number])[address]141 [place] [address] Creatinine [Mass/Vol] 1.4 mg/dL High 0.4 - 1.0 mg/dL [facility] eGFR (CKD-EPI)non-race dependent 41 Low - PINF [facility] Interpretation and review of laboratory results Abnormal [facility] D-Dimeron 12-22-2023 Fibrin D-dimer DDU (PPP) [Mass/Vol] 7716 High NINF [facility] ECG 12 leadOrdered By: Ap Macario on 12-22-2023 [facility] ER Extra Urineon 12-22-2023 Urine collection device ER EXTRA URINE ORDER IN PROCESS [facility] ESR Photometric method (Bld) [Velocity]on 12-22-2023 ESR, ERYTHROCYTE SEDIMENTATION RATE 20 mm/h Normal 0-30 [facility] Comment on above: Performed By: #### 8 2477-1, 77655-1 ####[facility] ([id number])[address] [facility], [address] [place] [address] [facility] Erythrocyte Sedimentation Ra te (ESR)on 12-22-2023 ESR Photometric method (Bld) [Velocity] 20 mm/h 0 - 30 mm/h [facility] FERRITINon 12-22-2023 Ferritin [Mass/Vol] 211 ng/mL Normal 11-307 [facility] Comment on above: Performed By: #### C BCA, 02912-2, BMP, 3040-3, LIVR, 78898-5, 57884-3, 2276-4 ####[facility] ([id number])[address], [address], [place] [address] Ferritinon 12-22-2023 Ferritin [Mass/Vol] 211 ng/mL 11 - 307 ng/mL [facility] Ferritin [Mass/Vol]on 2023 [facility] Fibrin D-dimer DDU (PPP) [Ma ss/Vol]on 12-22-2023 D DIMER 7716 ng/mL DDU High <255 [facility] Comment on above: Result Comment: Resu lts >=255ng/mL DDU: Results may beindicative of the presence of VTE. The useof the Wells score and further diagnostictests should be considered. Elevated D-Dimerlevels can also be associated with DIC,neoplasm, , trauma and liver disease.Elevated levels of rheumatoid factor may leadto an overestimation of the D-Dimer level. Performed By: #### 4 8066-5, PINR, 46951-9 ####[facility] ([id number])[address], [address] [place] [address] Glucose Glucometer (BldC) [M ass/Vol]on 12-22-2023 Glucose [Mass/Vol] 81 mg/dL Normal 65-99 [facility] Glucose [Mass/Vol] 40 mg/dL Critically low 65-99 [facility] Glucose [Mass/Vol] 81 mg/dL 65 - 99 mg/dL [facility] Glucose [Mass/Vol] 40 mg/dL Critically low 65 - 99 mg/dL [facility] Interpretation and review of laboratory results Abnormal [facility] Glucose [Mass/Vol] 93 mg/dL Normal 65-99 [facility] Glucose [Mass/Vol] 93 mg/dL 65 - 99 mg/dL [facility] HGB A1C (GLYCO-HGB)on 2023 Glucose [Mass/Vol] 148 mg/dL Normal [facility] Comment on above: Performed By: #### 8 2477-1, 40979-6 ####[facility] ([id number])[address] [address] HbA1c (Bld) [Mass fraction] 6.8 % High 4.4-5.6 [facility] Comment on above: Result Comment: NOTE ADA Guidelines Result HgbA1c Normal : less than 5.7 % Prediabetes : 5.7 % to 6.4 % Diabetes : > 6.4 %Use with caution in patients with abnormal hemoglobin variants asthe half-life of red blood cells and in vivo glycation rates areaffected. Performed By: #### 8 2477-1, 78290-7 ####[facility] ([id number])[address] [address] Hemoglobin A1con 12-22-2023 Average glucose Estimated from glycated hemoglobin (Bld) [Mass/Vol] 148 mg/dL [facility] HbA1c (Bld) [Mass fraction] 6.8 % High 4.4 - 5.6 % [facility] Interpretation and review of laboratory results Abnormal [facility] LIPASEon 12-22-2023 Lipase [Catalytic activity/Vol] 135 U/L High 11-82 [facility] Comment on above: Performed By: #### C BCA, 17069-1, BMP, 3040-3, LIVR, 05520-3, 96987-9, 6-4 ####[facility] ([id number])[address] [address] LIVER PANELon 12-22-2023 Albumin [Mass/Vol] 2.6 g/dL Low 3.2-5.3 [facility] Comment on above: Performed By: #### C BCA, 28856-4, BMP, 3040-3, LIVR, 59046-7, 14759-9, 6-4 ####[facility] ([id number])[address], [place] [address] ALP [Catalytic activity/Vol] 313 U/L High 39-130 [facility] Comment on above: Performed By: #### C BCA, 13520-6, BMP, 3040-3, LIVR, 43540-8, 01788-6, 2276-4 ####[facility] ([id number])[address], [address] [address] ALT [Catalytic activity/Vol] 28 U/L Normal 0-31 [facility] Comment on above: Performed By: #### C BCA, 49283-0, BMP, 3040-3, LIVR, 71915-4, 76045-3, 2276-4 ####[facility] ([id number])[address], [address], [place] [address] AST [Catalytic activity/Vol] 36 U/L Normal 0-41 [facility] Comment on above: Performed By: #### C BCA, 88129-5, BMP, 3040-3, LIVR, 95139-2, 87050-0, 2276-4 ####[facility] ([id number])[address], [address], [place] [address] Bilirubin [Mass/Vol] 0.6 mg/dL Normal 0.3-1.2 [facility] Comment on above: Performed By: #### C BCA, 84847-3, BMP, 3040-3, LIVR, 42327-6, 76254-4, 2276-4 ####[facility] ([id number])[address], [address], [place] [address] Bilirubin.direct [Mass/Vol] 0.2 mg/dL Normal 0.0-0.4 [facility] Comment on above: Performed By: #### C BCA, 90655-7, BMP, 3040-3, LIVR, 47725-8, 90487-1, 2276-4 ####[facility] ([id number])[address], [address] [place] [address] Protein [Mass/Vol] 6.5 g/dL Normal 6.0-8.0 [facility] Comment on above: Performed By: #### C BCA, 09174-1, BMP, 3040-3, LIVR, 57934-1, 42705-8, 2276-4 ####[facility] ([id number])[address], [address] [place] [address] Lactate (P stan) [Moles/Vol]o n 12-22-2023 LACTATE W/REFLEX 1.0 mmol/L Normal 0.4-2.0 [facility] Comment on above: Result Comment: Resu lt did not trigger repeat Lactate,re-order if needed. Performed By: #### C BCA, 52321-4, BMP, 3040-3, LIVR, 80734-7, 02157-7, 6-4 ####[facility] ([id number])[address], [address] [place] [address] [facility] Lactate w/ Reflexon 12-22-19 Lactate (P stan) [Moles/Vol] 1.0 mmol/L 0.4 - 2.0 mmol/L [facility] Lipaseon 12-22-2023 Lipase [Catalytic activity/Vol] 135 U/L High 11 - 82 U/L [facility] Liver panelon 12-22-2023 Albumin [Mass/Vol] 2.6 g/dL Low 3.2 - 5.3 g/dL [facility] ALP [Catalytic activity/Vol] 313 U/L High 39 - 130 U/L [facility] ALT No additional P-5'-P [Catalytic activity/Vol] 28 U/L 0 - 31 U/L [facility] AST [Catalytic activity/Vol] 36 U/L 0 - 41 U/L [facility] Bilirubin [Mass/Vol] 0.6 mg/dL 0.3 - 1.2 mg/dL [facility] Bilirubin.direct [Mass/Vol] 0.2 mg/dL 0.0 - 0.4 mg/dL [facility] Protein [Mass/Vol] 6.5 g/dL 6.0 - 8.0 g/dL [facility] MAGNESIUMon 12-22-2023 Magnesium [Mass/Vol] 1.9 mg/dL Normal 1.8-2.6 [facility] Comment on above: Performed By: #### C BCA, 54607-9, BMP, 3040-3, LIVR, 38697-4, 51625-4, 2276-4 ####[facility] ([id number])[address] [facility], [address] [place] [address] Magnesium [Mass/Vol] 1.9 mg/dL Normal 1.9-2.7 [facility] Comment on above: Performed By: #### L [id number] #### [facility] (BEAKER) [address] [place] [address] MR ABDOMEN WO CONTon 024 MR ABDOMEN WO CONT Normal [facility] Magnesiumon 12-22-2023 Magnesium [Mass/Vol] 1.9 mg/dL 1.8 - 2.6 mg/dL [facility] Magnesium [Mass/Vol]on 12-21 [facility] Natriuretic peptide B [Mass/ Vol]on 12-22-2023 Natriuretic peptide B (Bld) [Mass/Vol] 828 pg/mL High <100.0 [facility] Comment on above: Performed By: #### 8 2477-1, 56497-1 ####[facility] ([id number])[address] [facility], [address] [place] [address] Interpretation and review of laboratory results Abnormal [facility] Natriuretic peptide B (Bld) [Mass/Vol] 828 pg/mL High NINF - 100.0 pg/mL [facility] No Panel Informationon 12-21 Interpretation and review of laboratory results Abnormal [facility] Interpretation and review of laboratory results Abnormal [facility] PHOSPHORUSon 12-22-2023 Magnesium [Mass/Vol] 4.6 mg/dL Normal 2.5-5.0 [facility] Comment on above: Performed By: #### L [id number] #### [facility] (BEAKER) [address] [place] [address] POCT Nursing Urine [place] ic UAon 12-22-2023 Bilirubin Ql (U) Negative Negative^Ne gative [facility] Glucose [Mass/Vol] Negative Negative^ Ne gative mg/dL [facility] Hemoglobin Ql (U) Negative Negative^N e gative [facility] Interpretation and review of laboratory results Abnormal [facility] Ketones (U) [Mass/Vol] Negative Negative^Ne gative mg/dL [facility] Leukocyte esterase Test strip Ql (U) Trace Abnormal Negative^Ne gative [facility] Nitrite Ql (U) Negative Negative^Ne gative [facility] pH (U) 7.0 [pH] 5.0 - 8.5 [facility] Protein Ql (U) 100 mg/dL Abnormal Negative^Ne gative [facility] Specific gravity (U) [Rel density] 1.020 1.003 - 1.035 [facility] Urobilinogen Qn (U) 1.0 NINF [facility] PROTIME AND INRon 12-22-2023 INR Coag (PPP) [Relative time] 1.2 {INR} High 0.8-1.1 [facility] Comment on above: Performed By: #### 4 8066-5, RENNY, 06840-9 ####[facility] ([id number])[address], [address] [place] [address] PT Coag (PPP) [Time] 13.8 s High 9.8-13.2 [facility] Comment on above: Performed By: #### 4 8066-5, PINR, 00575-0 ####[facility] ([id number])[address], [address] [place] [address] Protime & INRon 12-22-2023 INR Coag (PPP) [Relative time] 1.2 {INR} High [facility] PT Coag (PPP) [Time] 13.8 s High [facility] SUPERFICIAL WOUND CULTUREon 12-22-2023 Bacteria identified Aer cx Nom (Wound) Susceptible [facility] Comment on above: Performed By: #### 6 32-0 ####[facility] ([id number])[address] [facility], [address] [place] [address] TROPONIN Ion 12-22-2023 Troponin I.cardiac [Mass/Vol] 0.04 ng/mL Normal 0.00-0.04 [facility] Comment on above: Performed By: #### C BCA, 44943-6, BMP, 3040-3, LIVR, 59599-3, 09277-4, 2276-4 ####[facility] ([id number])[address] [facility], [address] [place] [address] Troponin Ion 12-22-2023 Troponin I.cardiac [Mass/Vol] 0.04 ng/mL 0.00 - 0.04 ng/mL [facility] Troponin I.cardiac [Mass/Vol ]on 12-22-2023 [facility] UA (MICROSCOPIC)on 4 MUCOUS PRESENT Abnormal NONE [facility] R.B.CELLS 3 /hpf Normal 0-5 [facility] W.B.CELLS 40 /hpf High 0-5 [facility] URINE CULTUREon 12-22-2023 Bacteria identified Cx Nom (U) Susceptible [facility] Comment on above: Performed By: #### 6 30-4 ####[facility] ([id number])[address] [facility], [address] [place] [address] URN MACROSCOPIC NURon 2023 BILIRUBIN KALINA Negative Normal NEG [facility] Comment on above: Performed By: #### N UM ####[facility] ([id number])[address] [place] [address] BLOOD/HGB KALINA Negative Normal NEG [facility] Comment on above: Performed By: #### N UM ####[facility] ([id number])[address] [place], [place] [address] GLUCOSE KALINA Negative Normal NEG [facility] Comment on above: Performed By: #### N UM ####[facility] ([id number])2141 [place] [address] KETONES KALINA Negative Normal NEG [facility] Comment on above: Performed By: #### N UM ####[facility] ([id number])2141 [place] [address] LEUKOCYTE ESTERASE KALINA Trace Abnormal NEG [facility] Comment on above: Performed By: #### N UM ####[facility] ([id number])2141 [place] [address] NITRITE KALINA Negative Normal NEG [facility] Comment on above: Performed By: #### N UM ####[facility] ([address] [place] [address] [place] [address] PH KALINA 7.0 Normal 5.0-8.5 [facility] Comment on above: Performed By: #### N UM ####[facility] ([address] [place] [address] [place] [address] PROTEIN KALINA 100 mg/dL Abnormal NEG [facility] Comment on above: Performed By: #### N UM ####[facility] ([id number])2141 [place] [address] SPECIFIC GRAVITY KALINA 1.020 Normal 1.003-1.035 [facility] Comment on above: Performed By: #### N UM ####[facility] ([id number])2141 [place] [address] UROBILINOGEN KALINA 1.0 eu/dL Normal <1.1 [facility] Comment on above: Performed By: #### N UM ####[facility] ([id number])2141 [place] [address] US ABDOMEN LMTDon 12-22-2023 US ABDOMEN LMTD Normal [facility] US Abdomen limitedon 024 [facility] (narrative) [facility] Urine collection deviceon ER EXTRA URINES ER EXTRA URINE ORDER IN PROCESS Normal [facility] XR CHEST 1 VWon 12-22-2023 XR CHEST 1 VW Normal [facility] XR Chest Single viewon 12-21 SECTRAPACS [facility] Radiology Study observation (narrative) [facility] XR Chest Single viewOrdered By: Ray Vo on 12-22-2023 [facility] Work Phone: aPTT Coag (PPP) [Time]on aPTT Coag (Bld) [Time] s Critically high 26-37 [facility] Comment on above: Performed By: #### 4 [id number], PINR, [id number] ####[facility] ([id number])[address], [address] [place] [address] BASIC METABOLIC PANELon 11-29 Anion gap [Moles/Vol] 16 mmol/L Normal 7-20 [facility] Comment on above: Performed By: #### L [id number] #### [facility] (BEAKER) [address] [place] [address] Calcium [Mass/Vol] 7.2 mg/dL Low 8.6-10.3 [facility] Comment on above: Performed By: #### L [id number] #### [facility] ([facility]AKER) [address] [place] [address] Chloride [Moles/Vol] 102 mmol/L Normal 98-107 [facility] Comment on above: Performed By: #### L [id number] #### [facility] (BEAKER) [address] [place] [address] CO2 [Moles/Vol] 21 mmol/L Normal 21-31 [facility] Comment on above: Performed By: #### L [id number] #### [facility] ([facility]) [address] [place] [address] Creatinine [Mass/Vol] 1.29 mg/dL High 0.60-1.20 [facility] Comment on above: Performed By: #### L [id number] #### [facility] ([facility]) [address] [place] [address] GLOMERULAR FILTRATION RATE ML/MIN/1.73 SQ M.PREDICTED 45.8 mL/min/1.73m*2 Low >60.0 [facility] Comment on above: Result Comment: [facility]???s estimated glomerular filtration rate (eGFR) will no [...] group of individuals. Performed By: #### L [id number] #### [facility] ([facility]) [address] [place] [address] Glucose [Mass/Vol] 131 mg/dL High 70-100 [facility] Comment on above: Performed By: #### L [id number] #### [facility] ([facility]) [address] [place] [address] Potassium [Moles/Vol] 4.2 mmol/L Normal 3.5-5.1 [facility] Comment on above: Performed By: #### L [id number] #### [facility] ([facility]) [address] [place] [address] Sodium [Moles/Vol] 135 mmol/L Low 136-145 [facility] Comment on above: Performed By: #### L [id number] #### [facility] (BEAKER) [address] [place] [address] Urea nitrogen [Mass/Vol] 30 mg/dL High 7-25 [facility] Comment on above: Performed By: #### L [id number] #### [facility] ([facility]) [address] [place] [address] UREA NITROGEN/CREATININ E (MASS RATIO) IN SER/PLAS 23.3 Normal [facility] Comment on above: Performed By: #### L [id number] #### [facility] ([facility]) [address] [place] [address] CBCon 12-21-2023 Erythrocyte distribution width (RBC) [Ratio] 17.2 % High 11.5-15.0 [facility] Comment on above: Performed By: #### L [id number] #### [facility] ([facility]) [address] [place] [address] ERYTHROCYTE MEAN CORPUSCULAR HEMOGLOBIN CONCENTRATION (G/DL) BY AUTOMATED 31.2 g/dL Low 32.0-35.0 [facility] Comment on above: Performed By: #### L [id number] #### [facility] ([facility]) [address] [place] [address] Hematocrit (Bld) [Volume fraction] 24.7 % Low 36.0-48.0 [facility] Comment on above: Performed By: #### L [id number] #### [facility] ([facility]) [address] [place] [address] Hemoglobin (Bld) [Mass/Vol] 7.7 g/dL Low 12.0-15.0 [facility] Comment on above: Performed By: #### L [id number] #### [facility] ([facility]) [address] [place] [address] MCH (RBC) [Entitic mass] 28.8 pg Normal 27.0-33.0 [facility] Comment on above: Performed By: #### L [id number] #### [facility] ([facility]) [address] [place] [address] MCV (RBC) [Entitic vol] 92.5 fL Normal 82.0-98.0 [facility] Comment on above: Performed By: #### L [id number] #### [facility] ([facility]) [address] [place] [address] PLATELETS (10*3/UL) IN BLOOD AUTOMATED COUNT 192 10*3/uL Normal 150-400 [facility] Comment on above: Performed By: #### L [id number] #### [facility] ([facility]) [address] [place] [address] RBC (Bld) [#/Vol] 2.67 10*6/uL Low 3.80-5.00 [facility] Comment on above: Performed By: #### L [id number] #### [facility] ([facility]) [address] [place] [address] WBC (Bld) [#/Vol] 17.43 10*3/uL High 4.00-10.60 [facility] Comment on above: Performed By: #### L [id number] #### [facility] ([facility]) [address] [place] [address] MAGNESIUMon 12-21-2023 Magnesium [Mass/Vol] 2.0 mg/dL Normal 1.9-2.7 [facility] Comment on above: Performed By: #### L [id number] #### [facility] ([facility]) [address] [place] [address] PHOSPHORUSon 12-21-2023 Magnesium [Mass/Vol] 4.0 mg/dL Normal 2.5-5.0 [facility] Comment on above: Performed By: #### L [id number] #### [facility] ([facility]) [address] [place] [address] TROPONIN Ion 12-21-2023 Troponin I.cardiac [Mass/Vol] 0.10 ng/mL High 0.00-0.04 [facility] Comment on above: Performed By: #### L [id number] #### [facility] ([facility]) [address] [place] [address] BLOOD CULTUREon 12-20-2023 Bacteria identified Cx Nom (Bld) No growth at 5 days Normal [facility] Comment on above: Performed By: #### L [id number] #### [facility] ([facility]) [address] [place] [address] C-REACTIVE PROTEINon 024 C REACTIVE PROTEIN (MG/L) IN SER/PLAS 283.0 mg/L High 0.0-7.0 [facility] Comment on above: Performed By: #### L [id number] #### [facility] ([facility]) [address] [place] [address] CBCon 12-20-2023 Erythrocyte distribution width (RBC) [Ratio] 17.2 % High 11.5-15.0 [facility] Comment on above: Performed By: #### L [id number] #### [facility] ([facility]) [address] [place] [address] Performed By: #### L [id number] #### [facility] ([facility]) [address] [place] [address] ERYTHROCYTE MEAN CORPUSCULAR HEMOGLOBIN CONCENTRATION (G/DL) BY AUTOMATED 32.5 g/dL Normal 32.0-35.0 [facility] Comment on above: Performed By: #### L [id number] #### [facility] ([facility]) [address] [place] [address] Performed By: #### L [id number] #### [facility] ([facility]) [address] [place] [address] Hematocrit (Bld) [Volume fraction] 24.3 % Low 36.0-48.0 [facility] Comment on above: Performed By: #### L [id number] #### [facility] (BEAKER) [address] [place] [address] Performed By: #### L [id number] #### [facility] (BEAKER) [address] [place] [address] Hemoglobin (Bld) [Mass/Vol] 7.9 g/dL Low 12.0-15.0 [facility] Comment on above: Performed By: #### L [id number] #### [facility] ([facility]) [address] [place] [address] Performed By: #### L [id number] #### [facility] ([facility]) [address] [place] [address] MCH (RBC) [Entitic mass] 29.7 pg Normal 27.0-33.0 [facility] Comment on above: Performed By: #### L [id number] #### [facility] ([facility]) [address] [place] [address] Performed By: #### L [id number] #### [facility] ([facility]) [address] [place] [address] MCV (RBC) [Entitic vol] 91.4 fL Normal 82.0-98.0 [facility] Comment on above: Performed By: #### L [id number] #### [facility] ([facility]) [address] [place] [address] Performed By: #### L [id number] #### [facility] ([facility]) [address] [place] [address] PLATELETS (10*3/UL) IN BLOOD AUTOMATED COUNT 184 10*3/uL Normal 150-400 [facility] Comment on above: Performed By: #### L [id number] #### [facility] ([facility]) [address] [place] [address] Performed By: #### L [id number] #### [facility] ([facility]) [address] [place] [address] RBC (Bld) [#/Vol] 2.66 10*6/uL Low 3.80-5.00 [facility] Comment on above: Performed By: #### L [id number] #### [facility] ([facility]) [address] [place] [address] Performed By: #### L [id number] #### [facility] ([facility]AKER) [address] [place] [address] WBC (Bld) [#/Vol] 15.81 10*3/uL High 4.00-10.60 [facility] Comment on above: Performed By: #### L [id number] #### [facility] ([facility]) [address] [place] [address] Performed By: #### L [id number] #### [facility] ([facility]) [address] [place] [address] CBC WITH AUTO DIFFERENTIALon 12-20-2023 Basophils (Bld) [#/Vol] 0.03 10*3/uL Normal 0.00-0.20 [facility] Comment on above: Performed By: #### L [id number] #### [facility] ([facility]) [address] [place] [address] Basophils/100 WBC (Bld) 0.2 % Normal 0.0-1.0 [facility] Comment on above: Performed By: #### L [id number] #### [facility] ([facility]) [address] [place] [address] Eosinophils (Bld) [#/Vol] 0.12 10*3/uL Normal 0.00-0.50 [facility] Comment on above: Performed By: #### L [id number] #### [facility] ([facility]) [address] [place] [address] Eosinophils/100 WBC (Bld) 0.8 % Normal 0.0-6.0 [facility] Comment on above: Performed By: #### L [id number] #### [facility] ([facility]) [address] [place] [address] Immature granulocytes (Bld) [#/Vol] 0.18 10*3/uL Normal 0.00-0.20 [facility] Comment on above: Performed By: #### L [id number] #### [facility] (BEAKER) [address] [place] [address] Immature granulocytes/100 WBC (Bld) 1.1 % High 0.0-1.0 [facility] Comment on above: Performed By: #### L [id number] #### [facility] (BEAKER) [address] [place] [address] Lymphocytes (Bld) [#/Vol] 1.18 10*3/uL Low 1.20-4.00 [facility] Comment on above: Performed By: #### L [id number] #### [facility] (BEAKER) [address] [place] [address] Lymphocytes/100 WBC (Bld) 7.5 % Low 20.0-45.0 [facility] Comment on above: Performed By: #### L [id number] #### [facility] (BEAKER) [address] [place] [address] Monocytes (Bld) [#/Vol] 1.05 10*3/uL High 0.10-1.00 [facility] Comment on above: Performed By: #### L [id number] #### [facility] (BEAKER) [address] [place] [address] Monocytes/100 WBC (Bld) 6.6 % Normal 5.0-12.0 [facility] Comment on above: Performed By: #### L [id number] #### [facility] (BEAKER) [address] [place] [address] Neutrophils (Bld) [#/Vol] 13.25 10*3/uL High 1.60-7.60 [facility] Comment on above: Performed By: #### L [id number] #### [facility] (BEAKER) [address] [place] [address] Neutrophils/100 WBC (Bld) 83.8 % High 40.0-72.0 [facility] Comment on above: Performed By: #### L [id number] #### [facility] (BEAKER) [address] [place] [address] NRBC (PER 100 WBCS) BY AUTOMATED COUNT 0.0 % Normal 0 [facility] Comment on above: Performed By: #### L [id number] #### [facility] ([facility]) [address] [place] [address] COMPREHENSIVE METABOLIC PANE Elver 12-20-2023 Albumin [Mass/Vol] 2.6 g/dL Low 3.5-5.7 [facility] Comment on above: Performed By: #### L [id number] #### [facility] ([facility]) [address] [place] [address] ALP [Catalytic activity/Vol] 234 U/L High 34-104 [facility] Comment on above: Performed By: #### L [id number] #### [facility] ([facility]) [address] [place] [address] ALT [Catalytic activity/Vol] 22 U/L Normal 7-52 [facility] Comment on above: Performed By: #### L [id number] #### [facility] ([facility]) [address] [place] [address] Anion gap [Moles/Vol] 13 mmol/L Normal 7-20 [facility] Comment on above: Performed By: #### L [id number] #### [facility] ([facility]) [address] [place] [address] AST [Catalytic activity/Vol] 23 U/L Normal 13-39 [facility] Comment on above: Performed By: #### L [id number] #### [facility] ([facility]) [address] [place] [address] Bilirubin [Mass/Vol] 0.6 mg/dL Normal 0.3-1.0 [facility] Comment on above: Performed By: #### L [id number] #### [facility] ([facility]) [address] [place] [address] Calcium [Mass/Vol] 7.3 mg/dL Low 8.6-10.3 [facility] Comment on above: Performed By: #### L [id number] #### [facility] ([facility]) [address] [place] [address] Chloride [Moles/Vol] 101 mmol/L Normal 98-107 [facility] Comment on above: Performed By: #### L [id number] #### [facility] ([facility]) [address] [place] [address] CO2 [Moles/Vol] 26 mmol/L Normal 21-31 [facility] Comment on above: Performed By: #### L [id number] #### [facility] ([facility]) [address] [place] [address] Creatinine [Mass/Vol] 1.47 mg/dL High 0.60-1.20 [facility] Comment on above: Performed By: #### L [id number] #### [facility] ([facility]) [address] [place] [address] GLOMERULAR FILTRATION RATE ML/MIN/1.73 SQ M.PREDICTED 39.1 mL/min/1.73m*2 Low >60.0 [facility] Comment on above: Result Comment: [facility]???s estimated glomerular filtration rate (eGFR) will no [...] individuals. Performed By: #### L [id number] #### [facility] ([facility]) [address] [place] [address] Glucose [Mass/Vol] 117 mg/dL High 70-100 [facility] Comment on above: Performed By: #### L [id number] #### [facility] ([facility]) [address] [place] [address] Potassium [Moles/Vol] 4.1 mmol/L Normal 3.5-5.1 [facility] Comment on above: Performed By: #### L [id number] #### [facility] ([facility]) [address] [place] [address] Protein [Mass/Vol] 6.2 g/dL Normal 6.0-8.3 [facility] Comment on above: Performed By: #### L [id number] #### [facility] ([facility]) [address] [place] [address] Sodium [Moles/Vol] 136 mmol/L Normal 136-145 [facility] Comment on above: Performed By: #### L [id number] #### [facility] ([facility]) [address] [place] [address] Urea nitrogen [Mass/Vol] 34 mg/dL High 7-25 [facility] Comment on above: Performed By: #### L [id number] #### [facility] ([facility]) [address] [place] [address] UREA NITROGEN/CREATININ E (MASS RATIO) IN SER/PLAS 23.1 Normal [facility] Comment on above: Performed By: #### L [id number] #### [facility] ([facility]) [address] [place] [address] MAGNESIUMon 12-20-2023 Magnesium [Mass/Vol] 2.0 mg/dL Normal 1.9-2.7 [facility] Comment on above: Performed By: #### L [id number] #### [facility] ([facility]) [address] [place] [address] PHOSPHORUSon 12-20-2023 Magnesium [Mass/Vol] 3.8 mg/dL Normal 2.5-5.0 [facility] Comment on above: Performed By: #### L [id number] #### [facility] ([facility]) [address] [place] [address] PREALBUMINon 12-20-2023 Prealbumin [Mass/Vol] 9.0 mg/dL Normal [facility] Comment on above: Performed By: #### L [id number] #### [facility] (BEAKER) [address] [facility] [place] [address] PROCALCITONIN TESTon 024 PROCALCITONIN IN BLOOD 0.78 ng/mL High 0.00-0.10 [facility] Comment on above: Result Comment: Susp ected [...] PCT<0.5ng/mL Performed By: #### L [id number] #### [facility] (BEAKER) [address] [place] [address] TRIGLYCERIDESon 12-20-2023 FASTING? Unknown Normal [facility] Comment on above: Performed By: #### L [id number] #### [facility] (BEAKER) [address] [place] [address] Magnesium [Mass/Vol] 123 mg/dL Normal 40-149 [facility] Comment on above: Result Comment: TRIG LYCERIDE REFERENCE RANGE: 20 YEARS AND OLDER CARDIOVASCULAR RISK LESS THAN 150 mg/dL LOW RISK 150 TO 199 mg/dL BORDERLINE RISK 200 mg/dL AND GREATER HIGH RISK Performed By: #### L [id number] #### [facility] ([facility]) [address] [place] [address] TROPONIN Ion 12-20-2023 Troponin I.cardiac [Mass/Vol] 0.05 ng/mL High 0.00-0.04 [facility] Comment on above: Performed By: #### L [id number] #### [facility] ([facility]) [address] [place] [address] BASIC METABOLIC PANELon 11-29 Anion gap [Moles/Vol] 13 mmol/L Normal 7-20 [facility] Comment on above: Performed By: #### L [id number] #### [facility] ([facility]) [address] [place] [address] Calcium [Mass/Vol] 6.9 mg/dL Low 8.6-10.3 [facility] Comment on above: Performed By: #### L [id number] #### [facility] ([facility]) [address] [place] [address] Chloride [Moles/Vol] 101 mmol/L Normal 98-107 [facility] Comment on above: Performed By: #### L [id number] #### [facility] ([facility]) [address] [place] [address] CO2 [Moles/Vol] 25 mmol/L Normal 21-31 [facility] Comment on above: Performed By: #### L [id number] #### [facility] ([facility]) [address] [place] [address] Creatinine [Mass/Vol] 1.45 mg/dL High 0.60-1.20 [facility] Comment on above: Performed By: #### L [id number] #### [facility] ([facility]) [address] [place] [address] GLOMERULAR FILTRATION RATE ML/MIN/1.73 SQ M.PREDICTED 39.8 mL/min/1.73m*2 Low >60.0 [facility] Comment on above: Result Comment: [facility]???s estimated glomerular filtration rate (eGFR) will no [...] individuals. Performed By: #### L [id number] #### [facility] ([facility]) [address] [place] [address] Glucose [Mass/Vol] 150 mg/dL High 70-100 [facility] Comment on above: Performed By: #### L [id number] #### [facility] ([facility]) [address] [facility] [place] [address] Potassium [Moles/Vol] 4.2 mmol/L Normal 3.5-5.1 [facility] Comment on above: Performed By: #### L [id number] #### [facility] ([facility]) [address] [facility] [facility] [place] [address] Sodium [Moles/Vol] 135 mmol/L Low 136-145 [facility] Comment on above: Performed By: #### L [id number] #### [facility] ([facility]) [address] [place] [address] Urea nitrogen [Mass/Vol] 37 mg/dL High 7-25 [facility] Comment on above: Performed By: #### L [id number] #### [facility] ([facility]) [address] [facility] [place] [address] UREA NITROGEN/CREATININ E (MASS RATIO) IN SER/PLAS 25.5 Normal [facility] Comment on above: Performed By: #### L [id number] #### [facility] ([facility]) [address] [place] [address] CBCon 12-19-2023 Erythrocyte distribution width (RBC) [Ratio] 17.2 % High 11.5-15.0 [facility] Comment on above: Performed By: #### L [id number] #### [facility] ([facility]) [address] [place] [address] ERYTHROCYTE MEAN CORPUSCULAR HEMOGLOBIN CONCENTRATION (G/DL) BY AUTOMATED 32.1 g/dL Normal 32.0-35.0 [facility] Comment on above: Performed By: #### L [id number] #### [facility] ([facility]) [address] [place] [address] Hematocrit (Bld) [Volume fraction] 24.3 % Low 36.0-48.0 [facility] Comment on above: Performed By: #### L [id number] #### [facility] ([facility]) [address] [place] [address] Hemoglobin (Bld) [Mass/Vol] 7.8 g/dL Low 12.0-15.0 [facility] Comment on above: Performed By: #### L [id number] #### [facility] ([facility]) [address] [place] [address] MCH (RBC) [Entitic mass] 29.2 pg Normal 27.0-33.0 [facility] Comment on above: Performed By: #### L [id number] #### [facility] ([facility]) [address] [place] [address] MCV (RBC) [Entitic vol] 91.0 fL Normal 82.0-98.0 [facility] Comment on above: Performed By: #### L [id number] #### [facility] ([facility]) [address] [place] [address] PLATELETS (10*3/UL) IN BLOOD AUTOMATED COUNT 181 10*3/uL Normal 150-400 [facility] Comment on above: Performed By: #### L [id number] #### [facility] ([facility]) [address] [place] [address] RBC (Bld) [#/Vol] 2.67 10*6/uL Low 3.80-5.00 [facility] Comment on above: Performed By: #### L [id number] #### [facility] ([facility]) [address] [place] [address] WBC (Bld) [#/Vol] 15.15 10*3/uL High 4.00-10.60 [facility] Comment on above: Performed By: #### L [id number] #### [facility] ([facility]) [address] [place] [address] MAGNESIUMon 12-19-2023 Magnesium [Mass/Vol] 2.1 mg/dL Normal 1.9-2.7 [facility] Comment on above: Performed By: #### L [id number] #### [facility] ([facility]) [address] [place] [address] PHOSPHORUSon 12-19-2023 Magnesium [Mass/Vol] 4.0 mg/dL Normal 2.5-5.0 [facility] Comment on above: Performed By: #### L [id number] #### [facility] ([facility]) [address] [place] [address] URINALYSIS MICROSCOPIC WITH REFLEX CULTUREon 12-19-2023 CASTS IN URINE Present Abnormal None Seen [facility] Comment on above: Performed By: #### L [id number] #### [facility] ([facility]) [address] [place] [address] CRYSTALS IN URINE Present Abnormal None Seen [facility] Comment on above: Performed By: #### L [id number] #### [facility] ([facility]) [address] [place] [address] HYALINE CASTS /LPF IN URINE SEDIMENT BY MICROSCOPY 2 /LPF High <1 [facility] Comment on above: Performed By: #### L [id number] #### [facility] ([facility]) [address] [place] [address] MUCUS (#/HPF) IN URINE SEDIMENT Occasional Normal None Seen, Occasional, Few [facility] Comment on above: Performed By: #### L [id number] #### [facility] ([facility]) [address] [place] [address] OTHER MICROSCOPIC ELEMENTS Normal [facility] Comment on above: Performed By: #### L [id number] #### [facility] ([facility]) [address] [place] [address] RBC (#/HPF) IN URINE SEDIMENT 3-5 Abnormal None Seen [facility] Comment on above: Performed By: #### L [id number] #### [facility] ([facility]) [address] [place] [address] SQUAMOUS EPITHELIAL CELLS (#/HPF) IN URINE SEDIMENT Occasional Normal None Seen, Occasional [facility] Comment on above: Performed By: #### L [id number] #### [facility] ([facility]) [address] [place] [address] TRIPLE PHOSPHATE CRYSTALS (#/HPF) IN URINE Few Abnormal None Seen [facility] Comment on above: Performed By: #### L [id number] #### [facility] ([facility]) [address] [place] [address] WBC (LEUKOCYTE) (#/HPF) IN URINE SEDIMENT 51-100 Abnormal None Seen [facility] Comment on above: Performed By: #### L [id number] #### [facility] ([facility]) [address] [place] [address] URINALYSIS WITH REFLEX CULTU REon 12-19-2023 BILIRUBIN, TOTAL PRESENCE IN URINE Negative Normal Negative [facility] Comment on above: Performed By: #### L [id number] #### [facility] ([facility]) [address] [place] [address] Clarity (U) Cloudy Abnormal Clear [facility] Comment on above: Performed By: #### L [id number] #### [facility] ([facility]) [address] [place] [address] Color (U) Yellow Normal Yellow [facility] Comment on above: Performed By: #### L [id number] #### [facility] ([facility]) [address] [place] [address] Glucose (U) [Mass/Vol] Negative Normal Negative [facility] Comment on above: Performed By: #### L [id number] #### [facility] ([facility]) [address] [place] [address] HEMOGLOBIN PRESENCE IN URINE Negative Normal Negative [facility] Comment on above: Performed By: #### L [id number] #### [facility] ([facility]) [address] [place] [address] Ketones Ql (U) Negative Normal Negative [facility] Comment on above: Performed By: #### L [id number] #### [facility] ([facility]) [address] [place] [address] LEUKOCYTE ESTERASE PRESENCE IN URINE BY TEST STRIP Large Abnormal Negative [facility] Comment on above: Performed By: #### L [id number] #### [facility] ([facility]) [address] [place] [address] NITRITE PRESENCE IN URINE Negative Normal Negative [facility] Comment on above: Performed By: #### L [id number] #### [facility] ([facility]) [address] [place] [address] pH (U) 8.0 [pH] Normal 5.0-8.0 [facility] Comment on above: Performed By: #### L [id number] #### [facility] ([facility]) [address] [place] [address] Protein (U) [Mass/Vol] 100 mg/dL Abnormal Negative [facility] Comment on above: Performed By: #### L [id number] #### [facility] ([facility]) [address] [place] [address] Specific gravity (U) [Rel density] 1.015 Normal 1.015-1.020 [facility] Comment on above: Performed By: #### L [id number] #### [facility] ([facility]) [address] [place] [address] URINE CULTURE, ROUTINEon Ampicillin [Susc] 1 ug/ml Susceptible [facility] Comment on above: Performed By: #### L [id number] #### [facility] ([facility]) [address] [place] [address] Nitrofurantoin [Susc] <=16 Susceptible [facility] Comment on above: Performed By: #### L [id number] #### [facility] ([facility]) [address] [place] [address] Vancomycin [Susc] 2 ug/ml Susceptible [facility] Comment on above: Performed By: #### L [id number] #### [facility] ([facility]) [address] [place] [address] CBC WITH AUTO DIFFERENTIALon 12-18-2023 Erythrocyte distribution width (RBC) [Ratio] 17.4 % High 11.5-15.0 [facility] Comment on above: Performed By: #### L [id number] #### [facility] ([facility]) [address] [place] [address] ERYTHROCYTE MEAN CORPUSCULAR HEMOGLOBIN CONCENTRATION (G/DL) BY AUTOMATED 31.9 g/dL Low 32.0-35.0 [facility] Comment on above: Performed By: #### L [id number] #### [facility] ([facility]) [address] [place] [address] Hematocrit (Bld) [Volume fraction] 25.4 % Low 36.0-48.0 [facility] Comment on above: Performed By: #### L [id number] #### [facility] ([facility]) [address] [place] [address] Hemoglobin (Bld) [Mass/Vol] 8.1 g/dL Low 12.0-15.0 [facility] Comment on above: Performed By: #### L [id number] #### [facility] ([facility]) [address] [place] [address] MCH (RBC) [Entitic mass] 29.9 pg Normal 27.0-33.0 [facility] Comment on above: Performed By: #### L [id number] #### [facility] ([facility]) [address] [place] [address] MCV (RBC) [Entitic vol] 93.7 fL Normal 82.0-98.0 [facility] Comment on above: Performed By: #### L [id number] #### [facility] ([facility]) [address] [place] [address] NRBC (PER 100 WBCS) BY AUTOMATED COUNT 0.2 % High 0 [facility] Comment on above: Performed By: #### L [id number] #### [facility] ([facility]) [address] [place] [address] PLATELETS (10*3/UL) IN BLOOD AUTOMATED COUNT 179 10*3/uL Normal 150-400 [facility] Comment on above: Performed By: #### L [id number] #### [facility] ([facility]) [address] [place] [address] RBC (Bld) [#/Vol] 2.71 10*6/uL Low 3.80-5.00 [facility] Comment on above: Performed By: #### L [id number] #### [facility] ([facility]) [address] [place] [address] WBC (Bld) [#/Vol] 10.93 10*3/uL High 4.00-10.60 [facility] Comment on above: Performed By: #### L [id number] #### [facility] ([facility]) [address] [place] [address] COMPREHENSIVE METABOLIC PANE Elver 12-18-2023 Albumin [Mass/Vol] 2.7 g/dL Low 3.5-5.7 [facility] Comment on above: Performed By: #### L [id number] #### [facility] ([facility]) [address] [place] [address] ALP [Catalytic activity/Vol] 180 U/L High 34-104 [facility] Comment on above: Performed By: #### L [id number] #### [facility] ([facility]) [address] [place] [address] ALT [Catalytic activity/Vol] 16 U/L Normal 7-52 [facility] Comment on above: Performed By: #### L [id number] #### [facility] ([facility]) [address] [place] [address] Anion gap [Moles/Vol] 14 mmol/L Normal 7-20 [facility] Comment on above: Performed By: #### L [id number] #### [facility] ([facility]) [address] [place] [address] AST [Catalytic activity/Vol] 18 U/L Normal 13-39 [facility] Comment on above: Performed By: #### L [id number] #### [facility] ([facility]) [address] [place] [address] Bilirubin [Mass/Vol] 0.6 mg/dL Normal 0.3-1.0 [facility] Comment on above: Performed By: #### L [id number] #### [facility] ([facility]) [address] [place] [address] Calcium [Mass/Vol] 7.5 mg/dL Low 8.6-10.3 [facility] Comment on above: Performed By: #### L [id number] #### [facility] ([facility]) [address] [place] [address] Chloride [Moles/Vol] 101 mmol/L Normal 98-107 [facility] Comment on above: Performed By: #### L [id number] #### [facility] ([facility]) [address] [place] [address] CO2 [Moles/Vol] 25 mmol/L Normal 21-31 [facility] Comment on above: Performed By: #### L [id number] #### [facility] ([facility]) [address] [place] [address] Creatinine [Mass/Vol] 1.51 mg/dL High 0.60-1.20 [facility] Comment on above: Performed By: #### L [id number] #### [facility] ([facility]) [address] [place] [address] GLOMERULAR FILTRATION RATE ML/MIN/1.73 SQ M.PREDICTED 37.9 mL/min/1.73m*2 Low >60.0 [facility] Comment on above: Result Comment: [facility]???s estimated glomerular filtration rate (eGFR) will no [...] individuals. Performed By: #### L [id number] #### [facility] ([facility]) [address] [place] [address] Glucose [Mass/Vol] 178 mg/dL High 70-100 [facility] Comment on above: Performed By: #### L [id number] #### [facility] ([facility]) [address] [place] [address] Potassium [Moles/Vol] 4.1 mmol/L Normal 3.5-5.1 [facility] Comment on above: Performed By: #### L [id number] #### [facility] ([facility]) [address] [place] [address] Protein [Mass/Vol] 6.2 g/dL Normal 6.0-8.3 [facility] Comment on above: Performed By: #### L [id number] #### [facility] ([facility]) [address] [place] [address] Sodium [Moles/Vol] 136 mmol/L Normal 136-145 [facility] Comment on above: Performed By: #### L [id number] #### [facility] ([facility]) [address] [place] [address] Urea nitrogen [Mass/Vol] 39 mg/dL High 7-25 [facility] Comment on above: Performed By: #### L [id number] #### [facility] ([facility]) [address] [place] [address] UREA NITROGEN/CREATININ E (MASS RATIO) IN SER/PLAS 25.8 Normal [facility] Comment on above: Performed By: #### L [id number] #### [facility] ([facility]) [address] [place] [address] MAGNESIUMon 12-18-2023 Magnesium [Mass/Vol] 2.6 mg/dL Normal 1.9-2.7 [facility] Comment on above: Performed By: #### L [id number] #### [facility] ([facility]) [address] [place] [address] MANUAL DIFFERENTIALon 2023 BASOPHILS (10*3/UL) IN BLOOD BY CALCULATION 0.04 10*3/uL Normal 0.00-0.20 [facility] Comment on above: Performed By: #### L [id number] #### [facility] ([facility]) [address] [place] [address] BASOPHILS/100 LEUKOCYTES IN BLOOD BY AUTOMATED COUNT 0.4 % Normal 0.0-1.0 [facility] Comment on above: Performed By: #### L [id number] #### [facility] ([facility]) [address] [place] [address] EOSINOPHILS (10*3/UL) IN BLOOD BY CALCULATION 0.19 10*3/uL Normal 0.00-0.50 [facility] Comment on above: Performed By: #### L [id number] #### [facility] ([facility]) [address] [place] [address] EOSINOPHILS/100 LEUKOCYTES IN BLOOD BY AUTOMATED COUNT 1.7 % Normal 0.0-6.0 [facility] Comment on above: Performed By: #### L [id number] #### [facility] ([facility]) [address] [place] [address] IMMATURE GRANULOCYTES (10*3/UL) IN BLOOD BY CALCULATION 0.11 10*3/uL Normal 0.00-0.20 [facility] Comment on above: Performed By: #### L [id number] #### [facility] ([facility]) [address] [place] [address] IMMATURE GRANULOCYTES/100 LEUKOCYTES IN BLOOD BY AUTOMATED COUNT 1.0 % Normal 0.0-1.0 [facility] Comment on above: Performed By: #### L [id number] #### [facility] ([facility]) [address] [place] [address] LYMPHOCYTES (10*3/UL) IN BLOOD BY CALCULATION 1.25 10*3/uL Normal 1.20-4.00 [facility] Comment on above: Performed By: #### L [id number] #### [facility] ([facility]) [address] [place] [address] LYMPHOCYTES/100 LEUKOCYTES IN BLOOD BY AUTOMATED COUNT 11.4 % Low 20.0-45.0 [facility] Comment on above: Performed By: #### L [id number] #### [facility] ([facility]) [address] [place] [address] MONOCYTES (10*3/UL) IN BLOOD BY CALCUATION 0.95 10*3/uL Normal 0.10-1.00 [facility] Comment on above: Performed By: #### L [id number] #### [facility] ([facility]) [address] [place] [address] MONOCYTES/100 LEUKOCYTES IN BLOOD BY AUTOMATED COUNT 8.7 % Normal 5.0-12.0 [facility] Comment on above: Performed By: #### L [id number] #### [facility] ([facility]) [address] [place] [address] NEUTROPHILS (10*3/UL) IN BLOOD BY CALCULATION 8.4 10*3/uL High 1.6-7.6 [facility] Comment on above: Performed By: #### L [id number] #### [facility] ([facility]) [address] [place] [address] NEUTROPHILS/100 LEUKOCYTES IN BLOOD BY AUTOMATED COUNT 76.8 % High 40.0-72.0 [facility] Comment on above: Performed By: #### L [id number] #### [facility] ([facility]) [address] [place] [address] PHOSPHORUSon 12-18-2023 Magnesium [Mass/Vol] 4.8 mg/dL Normal 2.5-5.0 [facility] Comment on above: Performed By: #### L [id number] #### [facility] ([facility]) [address] [place] [address] BASIC METABOLIC PANELon 11-28 Anion gap [Moles/Vol] 13 mmol/L Normal 7-20 [facility] Comment on above: Performed By: #### L [id number] #### [facility] ([facility]) [address] [place] [address] Calcium [Mass/Vol] 7.8 mg/dL Low 8.6-10.3 [facility] Comment on above: Performed By: #### L [id number] #### [facility] ([facility]) [address] [place] [address] Chloride [Moles/Vol] 102 mmol/L Normal 98-107 [facility] Comment on above: Performed By: #### L [id number] #### [facility] ([facility]) [address] [place] [address] CO2 [Moles/Vol] 28 mmol/L Normal 21-31 [facility] Comment on above: Performed By: #### L [id number] #### [facility] ([facility]) [address] [place] [address] Creatinine [Mass/Vol] 1.62 mg/dL High 0.60-1.20 [facility] Comment on above: Performed By: #### L [id number] #### [facility] ([facility]) [address] [place] [address] GLOMERULAR FILTRATION RATE ML/MIN/1.73 SQ M.PREDICTED 34.8 mL/min/1.73m*2 Low >60.0 [facility] Comment on above: Result Comment: [facility]???s estimated glomerular filtration rate (eGFR) will no [...] individuals. Performed By: #### L [id number] #### [facility] ([facility]) [address] [place] [address] Glucose [Mass/Vol] 120 mg/dL High 70-100 [facility] Comment on above: Performed By: #### L [id number] #### [facility] ([facility]) [address] [place] [address] Potassium [Moles/Vol] 4.0 mmol/L Normal 3.5-5.1 [facility] Comment on above: Performed By: #### L [id number] #### [facility] ([facility]) [address] [place] [address] Sodium [Moles/Vol] 139 mmol/L Normal 136-145 [facility] Comment on above: Performed By: #### L [id number] #### [facility] ([facility]) [address] [place] [address] Urea nitrogen [Mass/Vol] 42 mg/dL High 7-25 [facility] Comment on above: Performed By: #### L [id number] #### [facility] ([facility]) [address] [facility] [place] [address] UREA NITROGEN/CREATININ E (MASS RATIO) IN SER/PLAS 25.9 Normal [facility] Comment on above: Performed By: #### L [id number] #### [facility] ([facility]) [address] [place] [address] CBCon 12-17-2023 Erythrocyte distribution width (RBC) [Ratio] 17.7 % High 11.5-15.0 [facility] Comment on above: Performed By: #### L [id number] #### [facility] ([facility]) [address] [place] [address] ERYTHROCYTE MEAN CORPUSCULAR HEMOGLOBIN CONCENTRATION (G/DL) BY AUTOMATED 31.6 g/dL Low 32.0-35.0 [facility] Comment on above: Performed By: #### L [id number] #### [facility] ([facility]) [address] [place] [address] Hematocrit (Bld) [Volume fraction] 26.6 % Low 36.0-48.0 [facility] Comment on above: Performed By: #### L [id number] #### [facility] ([facility]) [address] [place] [address] Hemoglobin (Bld) [Mass/Vol] 8.4 g/dL Low 12.0-15.0 [facility] Comment on above: Performed By: #### L [id number] #### [facility] ([facility]) [address] [place] [address] MCH (RBC) [Entitic mass] 29.7 pg Normal 27.0-33.0 [facility] Comment on above: Performed By: #### L [id number] #### [facility] ([facility]) [address] [place] [address] MCV (RBC) [Entitic vol] 94.0 fL Normal 82.0-98.0 [facility] Comment on above: Performed By: #### L [id number] #### [facility] ([facility]) [address] [place] [address] PLATELETS (10*3/UL) IN BLOOD AUTOMATED COUNT 186 10*3/uL Normal 150-400 [facility] Comment on above: Performed By: #### L [id number] #### [facility] ([facility]) [address] [place] [address] RBC (Bld) [#/Vol] 2.83 10*6/uL Low 3.80-5.00 [facility] Comment on above: Performed By: #### L [id number] #### [facility] ([facility]) [address] [place] [address] WBC (Bld) [#/Vol] 10.06 10*3/uL Normal 4.00-10.60 [facility] Comment on above: Performed By: #### L [id number] #### [facility] ([facility]) [address] [place] [address] MAGNESIUMon 12-17-2023 Magnesium [Mass/Vol] 2.8 mg/dL High 1.9-2.7 [facility] Comment on above: Performed By: #### L [id number] #### [facility] ([facility]) [address] [place] [address] PHOSPHORUSon 12-17-2023 Magnesium [Mass/Vol] 4.7 mg/dL Normal 2.5-5.0 [facility] Comment on above: Performed By: #### L [id number] #### [facility] ([facility]) [address] [place] [address] CBC WITH AUTO DIFFERENTIALon 12-16-2023 Erythrocyte distribution width (RBC) [Ratio] 17.7 % High 11.5-15.0 [facility] Comment on above: Performed By: #### L [id number] #### [facility] ([facility]) [address] [place] [address] ERYTHROCYTE MEAN CORPUSCULAR HEMOGLOBIN CONCENTRATION (G/DL) BY AUTOMATED 32.1 g/dL Normal 32.0-35.0 [facility] Comment on above: Performed By: #### L [id number] #### [facility] ([facility]) [address] [place] [address] Hematocrit (Bld) [Volume fraction] 29.0 % Low 36.0-48.0 [facility] Comment on above: Performed By: #### L [id number] #### [facility] ([facility]) [address] [place] [address] Hemoglobin (Bld) [Mass/Vol] 9.3 g/dL Low 12.0-15.0 [facility] Comment on above: Performed By: #### L [id number] #### [facility] ([facility]) [address] [place] [address] MCH (RBC) [Entitic mass] 30.4 pg Normal 27.0-33.0 [facility] Comment on above: Performed By: #### L [id number] #### [facility] ([facility]) [address] [place] [address] MCV (RBC) [Entitic vol] 94.8 fL Normal 82.0-98.0 [facility] Comment on above: Performed By: #### L [id number] #### [facility] ([facility]) [address] [place] [address] NRBC (PER 100 WBCS) BY AUTOMATED COUNT 0.0 % Normal 0 [facility] Comment on above: Performed By: #### L [id number] #### [facility] ([facility]) [address] [place] [address] PLATELETS (10*3/UL) IN BLOOD AUTOMATED COUNT 165 10*3/uL Normal 150-400 [facility] Comment on above: Performed By: #### L [id number] #### [facility] ([facility]) [address] [place] [address] RBC (Bld) [#/Vol] 3.06 10*6/uL Low 3.80-5.00 [facility] Comment on above: Performed By: #### L [id number] #### [facility] ([facility]) [address] [place] [address] WBC (Bld) [#/Vol] 8.42 10*3/uL Normal 4.00-10.60 [facility] Comment on above: Performed By: #### L [id number] #### [facility] ([facility]) [address] [place] [address] COMPREHENSIVE METABOLIC PANE Elver 12-16-2023 Albumin [Mass/Vol] 2.9 g/dL Low 3.5-5.7 [facility] Comment on above: Performed By: #### L [id number] #### [facility] ([facility]) [address] [place] [address] ALP [Catalytic activity/Vol] 197 U/L High 34-104 [facility] Comment on above: Performed By: #### L [id number] #### [facility] ([facility]) [address] [place] [address] ALT [Catalytic activity/Vol] 19 U/L Normal 7-52 [facility] Comment on above: Performed By: #### L [id number] #### [facility] ([facility]) [address] [place] [address] Anion gap [Moles/Vol] 16 mmol/L Normal 7-20 [facility] Comment on above: Performed By: #### L [id number] #### [facility] ([facility]) [address] [place] [address] AST [Catalytic activity/Vol] 23 U/L Normal 13-39 [facility] Comment on above: Performed By: #### L [id number] #### [facility] ([facility]) [address] [place] [address] Bilirubin [Mass/Vol] 0.6 mg/dL Normal 0.3-1.0 [facility] Comment on above: Performed By: #### L [id number] #### [facility] ([facility]) [address] [place] [address] Calcium [Mass/Vol] 8.1 mg/dL Low 8.6-10.3 [facility] Comment on above: Performed By: #### L [id number] #### [facility] ([facility]) [address] [place] [address] Chloride [Moles/Vol] 104 mmol/L Normal 98-107 [facility] Comment on above: Performed By: #### L [id number] #### [facility] ([facility]) [address] [place] [address] CO2 [Moles/Vol] 24 mmol/L Normal 21-31 [facility] Comment on above: Performed By: #### L [id number] #### [facility] ([facility]) [address] [place] [address] Creatinine [Mass/Vol] 1.57 mg/dL High 0.60-1.20 [facility] Comment on above: Performed By: #### L [id number] #### [facility] ([facility]) [address] [place] [address] GLOMERULAR FILTRATION RATE ML/MIN/1.73 SQ M.PREDICTED 36.2 mL/min/1.73m*2 Low >60.0 [facility] Comment on above: Result Comment: [facility]???s estimated glomerular filtration rate (eGFR) will no [...] individuals. Performed By: #### L [id number] #### [facility] ([facility]) [address] [place] [address] Glucose [Mass/Vol] 74 mg/dL Normal 70-100 [facility] Comment on above: Performed By: #### L [id number] #### [facility] ([facility]) [address] [place] [address] Potassium [Moles/Vol] 4.2 mmol/L Normal 3.5-5.1 [facility] Comment on above: Performed By: #### L [id number] #### [facility] ([facility]) [address] [place] [address] Protein [Mass/Vol] 6.6 g/dL Normal 6.0-8.3 [facility] Comment on above: Performed By: #### L [id number] #### [facility] ([facility]) [address] [place] [address] Sodium [Moles/Vol] 140 mmol/L Normal 136-145 [facility] Comment on above: Performed By: #### L [id number] #### [facility] ([facility]) [address] [place] [address] Urea nitrogen [Mass/Vol] 46 mg/dL High 7-25 [facility] Comment on above: Performed By: #### L [id number] #### [facility] ([facility]) [address] [place] [address] UREA NITROGEN/CREATININ E (MASS RATIO) IN SER/PLAS 29.3 Normal [facility] Comment on above: Performed By: #### L [id number] #### [facility] ([facility]) [address] [place] [address] MAGNESIUMon 12-16-2023 Magnesium [Mass/Vol] 2.8 mg/dL High 1.9-2.7 [facility] Comment on above: Performed By: #### L [id number] #### [facility] ([facility]) [address] [place] [address] MANUAL DIFFERENTIALon 2023 BASOPHILS (10*3/UL) IN BLOOD BY CALCULATION 0.03 10*3/uL Normal 0.00-0.20 [facility] Comment on above: Performed By: #### L [id number] #### [facility] ([facility]) [address] [place] [address] BASOPHILS/100 LEUKOCYTES IN BLOOD BY AUTOMATED COUNT 0.4 % Normal 0.0-1.0 [facility] Comment on above: Performed By: #### L [id number] #### [facility] ([facility]) [address] [place] [address] EOSINOPHILS (10*3/UL) IN BLOOD BY CALCULATION 0.16 10*3/uL Normal 0.00-0.50 [facility] Comment on above: Performed By: #### L [id number] #### [facility] ([facility]) [address] [place] [address] EOSINOPHILS/100 LEUKOCYTES IN BLOOD BY AUTOMATED COUNT 1.9 % Normal 0.0-6.0 [facility] Comment on above: Performed By: #### L [id number] #### [facility] ([facility]) [address] [place] [address] IMMATURE GRANULOCYTES (10*3/UL) IN BLOOD BY CALCULATION 0.10 10*3/uL Normal 0.00-0.20 [facility] Comment on above: Performed By: #### L [id number] #### [facility] ([facility]) [address] [place] [address] IMMATURE GRANULOCYTES/100 LEUKOCYTES IN BLOOD BY AUTOMATED COUNT 1.2 % High 0.0-1.0 [facility] Comment on above: Performed By: #### L [id number] #### [facility] ([facility]) [address] [place] [address] LYMPHOCYTES (10*3/UL) IN BLOOD BY CALCULATION 1.14 10*3/uL Low 1.20-4.00 [facility] Comment on above: Performed By: #### L [id number] #### [facility] ([facility]) [address] [place] [address] LYMPHOCYTES/100 LEUKOCYTES IN BLOOD BY AUTOMATED COUNT 13.5 % Low 20.0-45.0 [facility] Comment on above: Performed By: #### L [id number] #### [facility] ([facility]) [address] [place] [address] MONOCYTES (10*3/UL) IN BLOOD BY CALCUATION 1.07 10*3/uL High 0.10-1.00 [facility] Comment on above: Performed By: #### L [id number] #### [facility] ([facility]) [address] [place] [address] MONOCYTES/100 LEUKOCYTES IN BLOOD BY AUTOMATED COUNT 12.7 % High 5.0-12.0 [facility] Comment on above: Performed By: #### L [id number] #### [facility] ([facility]) [address] [place] [address] NEUTROPHILS (10*3/UL) IN BLOOD BY CALCULATION 5.9 10*3/uL Normal 1.6-7.6 [facility] Comment on above: Performed By: #### L [id number] #### [facility] ([facility]) [address] [place] [address] NEUTROPHILS/100 LEUKOCYTES IN BLOOD BY AUTOMATED COUNT 70.3 % Normal 40.0-72.0 [facility] Comment on above: Performed By: #### L [id number] #### [facility] ([facility]) [address] [place] [address] TOXIC GRANULES PRESENCE IN BLOOD BY LIGHT MICROSCOPY Slight Normal [facility] Comment on above: Performed By: #### L [id number] #### [facility] ([facility]) [address] [place] [address] PHOSPHORUSon 12-16-2023 Magnesium [Mass/Vol] 5.0 mg/dL Normal 2.5-5.0 [facility] Comment on above: Performed By: #### L [id number] #### [facility] ([facility]) [address] [place] [address] BASIC METABOLIC PANELon 11-28 Anion gap [Moles/Vol] 17 mmol/L Normal 7-20 [facility] Comment on above: Performed By: #### L [id number] #### [facility] ([facility]) [address] [place] [address] Calcium [Mass/Vol] 8.2 mg/dL Low 8.6-10.3 [facility] Comment on above: Performed By: #### L [id number] #### [facility] ([facility]) [address] [place] [address] Chloride [Moles/Vol] 101 mmol/L Normal 98-107 [facility] Comment on above: Performed By: #### L [id number] #### [facility] ([facility]) [address] [place] [address] CO2 [Moles/Vol] 24 mmol/L Normal 21-31 [facility] Comment on above: Performed By: #### L [id number] #### [facility] ([facility]) [address] [place] [address] Creatinine [Mass/Vol] 1.09 mg/dL Normal 0.60-1.20 [facility] Comment on above: Performed By: #### L [id number] #### [facility] ([facility]) [address] [place] [address] GLOMERULAR FILTRATION RATE ML/MIN/1.73 SQ M.PREDICTED 56.0 mL/min/1.73m*2 Low >60.0 [facility] Comment on above: Result Comment: [facility]???s estimated glomerular filtration rate (eGFR) will no [...] individuals. Performed By: #### L [id number] #### [facility] ([facility]) [address] [place] [address] Glucose [Mass/Vol] 101 mg/dL High 70-100 [facility] Comment on above: Performed By: #### L [id number] #### [facility] ([facility]) [address] [place] [address] Potassium [Moles/Vol] 4.3 mmol/L Normal 3.5-5.1 [facility] Comment on above: Performed By: #### L [id number] #### [facility] ([facility]) [address] [place] [address] Sodium [Moles/Vol] 138 mmol/L Normal 136-145 [facility] Comment on above: Performed By: #### L [id number] #### [facility] ([facility]) [address] [place] [address] Urea nitrogen [Mass/Vol] 54 mg/dL High 7-25 [facility] Comment on above: Performed By: #### L [id number] #### [facility] ([facility]) [address] [place] [address] UREA NITROGEN/CREATININ E (MASS RATIO) IN SER/PLAS 49.5 Normal [facility] Comment on above: Performed By: #### L [id number] #### [facility] ([facility]) [address] [place] [address] CBCon 12-15-2023 Erythrocyte distribution width (RBC) [Ratio] 17.9 % High 11.5-15.0 [facility] Comment on above: Performed By: #### L [id number] #### [facility] ([facility]) [address] [place] [address] ERYTHROCYTE MEAN CORPUSCULAR HEMOGLOBIN CONCENTRATION (G/DL) BY AUTOMATED 31.6 g/dL Low 32.0-35.0 [facility] Comment on above: Performed By: #### L [id number] #### [facility] ([facility]) [address] [place] [place] [address] Hematocrit (Bld) [Volume fraction] 29.7 % Low 36.0-48.0 [facility] Comment on above: Performed By: #### L [id number] #### [facility] ([facility]) [address] [place] [address] Hemoglobin (Bld) [Mass/Vol] 9.4 g/dL Low 12.0-15.0 [facility] Comment on above: Performed By: #### L [id number] #### [facility] ([facility]) [address] [place] [address] MCH (RBC) [Entitic mass] 29.6 pg Normal 27.0-33.0 [facility] Comment on above: Performed By: #### L [id number] #### [facility] ([facility]) [address] [place] [address] MCV (RBC) [Entitic vol] 93.4 fL Normal 82.0-98.0 [facility] Comment on above: Performed By: #### L [id number] #### [facility] ([facility]) [address] [place] [address] PLATELETS (10*3/UL) IN BLOOD AUTOMATED COUNT 156 10*3/uL Normal 150-400 [facility] Comment on above: Performed By: #### L [id number] #### [facility] ([facility]) [address] [place] [address] RBC (Bld) [#/Vol] 3.18 10*6/uL Low 3.80-5.00 [facility] Comment on above: Performed By: #### L [id number] #### [facility] ([facility]) [address] [place] [address] WBC (Bld) [#/Vol] 10.29 10*3/uL Normal 4.00-10.60 [facility] Comment on above: Performed By: #### L [id number] #### [facility] ([facility]) [address] [place] [address] MAGNESIUMon 12-15-2023 Magnesium [Mass/Vol] 2.4 mg/dL Normal 1.9-2.7 [facility] Comment on above: Performed By: #### L [id number] #### [facility] ([facility]) [address] [place] [address] PHOSPHORUSon 12-15-2023 Magnesium [Mass/Vol] 5.2 mg/dL High 2.5-5.0 [facility] Comment on above: Performed By: #### L [id number] #### [facility] ([facility]) [address] [place] [address] BASIC METABOLIC PANELon 03- Anion gap [Moles/Vol] 16 mmol/L Normal 7-20 [facility] Comment on above: Performed By: #### L [id number] #### [facility] ([facility]) [address] [place] [address] Calcium [Mass/Vol] 8.7 mg/dL Normal 8.6-10.3 [facility] Comment on above: Performed By: #### L [id number] #### [facility] ([facility]) [address] [place] [address] Chloride [Moles/Vol] 99 mmol/L Normal 98-107 [facility] Comment on above: Performed By: #### L [id number] #### [facility] ([facility]) [address] [place] [address] CO2 [Moles/Vol] 26 mmol/L Normal 21-31 [facility] Comment on above: Performed By: #### L [id number] #### [facility] ([facility]) [address] [place] [address] Creatinine [Mass/Vol] 1.65 mg/dL High 0.60-1.20 [facility] Comment on above: Performed By: #### L [id number] #### [facility] ([facility]) [address] [place] [address] GLOMERULAR FILTRATION RATE ML/MIN/1.73 SQ M.PREDICTED 34.1 mL/min/1.73m*2 Low >60.0 [facility] Comment on above: Result Comment: [facility]???s estimated glomerular filtration rate (eGFR) will no [...] individuals. Performed By: #### L [id number] #### [facility] ([facility]) [address] [place] [address] Glucose [Mass/Vol] 141 mg/dL High 70-100 [facility] Comment on above: Performed By: #### L [id number] #### [facility] ([facility]) [address] [place] [address] Potassium [Moles/Vol] 4.4 mmol/L Normal 3.5-5.1 [facility] Comment on above: Performed By: #### L [id number] #### [facility] ([facility]) [address] [place] [address] Sodium [Moles/Vol] 137 mmol/L Normal 136-145 [facility] Comment on above: Performed By: #### L [id number] #### [facility] ([facility]) [address] [place] [address] Urea nitrogen [Mass/Vol] 62 mg/dL High 7-25 [facility] Comment on above: Performed By: #### L [id number] #### [facility] ([facility]) [address] [place] [address] UREA NITROGEN/CREATININ E (MASS RATIO) IN SER/PLAS 37.6 Normal [facility] Comment on above: Performed By: #### L [id number] #### [facility] ([facility]) [address] [place] [address] CBCon 12-14-2023 Erythrocyte distribution width (RBC) [Ratio] 18.1 % High 11.5-15.0 [facility] Comment on above: Performed By: #### L [id number] #### [facility] ([facility]) [address] [place] [address] ERYTHROCYTE MEAN CORPUSCULAR HEMOGLOBIN CONCENTRATION (G/DL) BY AUTOMATED 31.7 g/dL Low 32.0-35.0 [facility] Comment on above: Performed By: #### L [id number] #### [facility] ([facility]) [address] [place] [address] Hematocrit (Bld) [Volume fraction] 29.3 % Low 36.0-48.0 [facility] Comment on above: Performed By: #### L [id number] #### [facility] ([facility]) [address] [place] [address] Hemoglobin (Bld) [Mass/Vol] 9.3 g/dL Low 12.0-15.0 [facility] Comment on above: Performed By: #### L [id number] #### [facility] ([facility]) [address] [place] [address] MCH (RBC) [Entitic mass] 29.7 pg Normal 27.0-33.0 [facility] Comment on above: Performed By: #### L [id number] #### [facility] ([facility]) [address] [place] [address] MCV (RBC) [Entitic vol] 93.6 fL Normal 82.0-98.0 [facility] Comment on above: Performed By: #### L [id number] #### [facility] ([facility]) [address] [place] [address] PLATELETS (10*3/UL) IN BLOOD AUTOMATED COUNT 152 10*3/uL Normal 150-400 [facility] Comment on above: Performed By: #### L [id number] #### [facility] ([facility]) [address] [place] [address] RBC (Bld) [#/Vol] 3.13 10*6/uL Low 3.80-5.00 [facility] Comment on above: Performed By: #### L [id number] #### [facility] ([facility]) [address] [place] [address] WBC (Bld) [#/Vol] 9.06 10*3/uL Normal 4.00-10.60 [facility] Comment on above: Performed By: #### L [id number] #### [facility] ([facility]) [address] [place] [address] MAGNESIUMon 12-14-2023 Magnesium [Mass/Vol] 2.4 mg/dL Normal 1.9-2.7 [facility] Comment on above: Performed By: #### L [id number] #### [facility] ([facility]) [address] [place] [address] PHOSPHORUSon 12-14-2023 Magnesium [Mass/Vol] 4.4 mg/dL Normal 2.5-5.0 [facility] Comment on above: Performed By: #### L [id number] #### [facility] ([facility]) [address] [place] [address] BASIC METABOLIC PANELon 11-28 Anion gap [Moles/Vol] 15 mmol/L Normal 7-20 [facility] Comment on above: Performed By: #### L [id number] #### [facility] ([facility]) [address] [place] [address] Calcium [Mass/Vol] 8.7 mg/dL Normal 8.6-10.3 [facility] Comment on above: Performed By: #### L [id number] #### [facility] ([facility]) [address] [place] [address] Chloride [Moles/Vol] 99 mmol/L Normal 98-107 [facility] Comment on above: Performed By: #### L [id number] #### [facility] ([facility]) [address] [place] [address] CO2 [Moles/Vol] 26 mmol/L Normal 21-31 [facility] Comment on above: Performed By: #### L [id number] #### [facility] ([facility]) [address] [place] [address] Creatinine [Mass/Vol] 1.65 mg/dL High 0.60-1.20 [facility] Comment on above: Performed By: #### L [id number] #### [facility] ([facility]) [address] [place] [address] GLOMERULAR FILTRATION RATE ML/MIN/1.73 SQ M.PREDICTED 34.1 mL/min/1.73m*2 Low >60.0 [facility] Comment on above: Result Comment: [facility]???s estimated glomerular filtration rate (eGFR) will no [...] individuals. Performed By: #### L [id number] #### [facility] ([facility]) [address] [place] [address] Glucose [Mass/Vol] 170 mg/dL High 70-100 [facility] Comment on above: Performed By: #### L [id number] #### [facility] ([facility]) [address] [place] [address] Potassium [Moles/Vol] 4.6 mmol/L Normal 3.5-5.1 [facility] Comment on above: Performed By: #### L [id number] #### [facility] [facility] [address] [place] [address] Sodium [Moles/Vol] 135 mmol/L Low 136-145 [facility] Comment on above: Performed By: #### L [id number] #### [facility] ([facility]) [address] [place] [address] Urea nitrogen [Mass/Vol] 70 mg/dL High 7-25 [facility] Comment on above: Performed By: #### L [id number] #### [facility] ([facility]) [address] [place] [address] UREA NITROGEN/CREATININ E (MASS RATIO) IN SER/PLAS 42.4 Normal [facility] Comment on above: Performed By: #### L [id number] #### [facility] ([facility]) [address] [place] [address] CBC WITH AUTO DIFFERENTIALon 12-13-2023 Erythrocyte distribution width (RBC) [Ratio] 18.5 % High 11.5-15.0 [facility] Comment on above: Performed By: #### L [id number] #### [facility] ([facility]) [address] [place] [address] ERYTHROCYTE MEAN CORPUSCULAR HEMOGLOBIN CONCENTRATION (G/DL) BY AUTOMATED 32.3 g/dL Normal 32.0-35.0 [facility] Comment on above: Performed By: #### L [id number] #### [facility] ([facility]) [address] [place] [address] Hematocrit (Bld) [Volume fraction] 25.7 % Low 36.0-48.0 [facility] Comment on above: Performed By: #### L [id number] #### [facility] ([facility]) [address] [place] [address] Hemoglobin (Bld) [Mass/Vol] 8.3 g/dL Low 12.0-15.0 [facility] Comment on above: Performed By: #### L [id number] #### [facility] ([facility]) [address] [place] [address] MCH (RBC) [Entitic mass] 30.9 pg Normal 27.0-33.0 [facility] Comment on above: Performed By: #### L [id number] #### [facility] ([facility]) [address] [place] [address] MCV (RBC) [Entitic vol] 95.5 fL Normal 82.0-98.0 [facility] Comment on above: Performed By: #### L [id number] #### [facility] ([facility]) [address] [place] [address] NRBC (PER 100 WBCS) BY AUTOMATED COUNT 0.0 % Normal 0 [facility] Comment on above: Performed By: #### L [id number] #### [facility] ([facility]) [address] [place] [address] PLATELETS (10*3/UL) IN BLOOD AUTOMATED COUNT 139 10*3/uL Low 150-400 [facility] Comment on above: Performed By: #### L [id number] #### [facility] ([facility]) [address] [place] [address] RBC (Bld) [#/Vol] 2.69 10*6/uL Low 3.80-5.00 [facility] Comment on above: Performed By: #### L [id number] #### [facility] ([facility]) [address] [place] [address] WBC (Bld) [#/Vol] 9.26 10*3/uL Normal 4.00-10.60 [facility] Comment on above: Performed By: #### L [id number] #### [facility] ([facility]) [address] [place] [address] MAGNESIUMon 12-13-2023 Magnesium [Mass/Vol] 2.3 mg/dL Normal 1.9-2.7 [facility] Comment on above: Performed By: #### L [id number] #### [facility] ([facility]) [address] [place] [address] MANUAL DIFFERENTIALon 2023 BASOPHILS (10*3/UL) IN BLOOD BY CALCULATION 0.04 10*3/uL Normal 0.00-0.20 [facility] Comment on above: Performed By: #### L [id number] #### [facility] ([facility]) [address] [place] [address] BASOPHILS/100 LEUKOCYTES IN BLOOD BY AUTOMATED COUNT 0.4 % Normal 0.0-1.0 [facility] Comment on above: Performed By: #### L [id number] #### [facility] ([facility]) [address] [place] [address] EOSINOPHILS (10*3/UL) IN BLOOD BY CALCULATION 0.16 10*3/uL Normal 0.00-0.50 [facility] Comment on above: Performed By: #### L [id number] #### [facility] ([facility]) [address] [place] [address] EOSINOPHILS/100 LEUKOCYTES IN BLOOD BY AUTOMATED COUNT 1.7 % Normal 0.0-6.0 [facility] Comment on above: Performed By: #### L [id number] #### [facility] ([facility]) [address] [place] [address] IMMATURE GRANULOCYTES (10*3/UL) IN BLOOD BY CALCULATION 0.02 10*3/uL Normal 0.00-0.20 [facility] Comment on above: Performed By: #### L [id number] #### [facility] ([facility]) [address] [place] [address] IMMATURE GRANULOCYTES/100 LEUKOCYTES IN BLOOD BY AUTOMATED COUNT 0.2 % Normal 0.0-1.0 [facility] Comment on above: Performed By: #### L [id number] #### [facility] ([facility]) [address] [place] [address] LYMPHOCYTES (10*3/UL) IN BLOOD BY CALCULATION 1.33 10*3/uL Normal 1.20-4.00 [facility] Comment on above: Performed By: #### L [id number] #### [facility] ([facility]) [address] [place] [address] LYMPHOCYTES/100 LEUKOCYTES IN BLOOD BY AUTOMATED COUNT 14.4 % Low 20.0-45.0 [facility] Comment on above: Performed By: #### L [id number] #### [facility] ([facility]) [address] [place] [address] MONOCYTES (10*3/UL) IN BLOOD BY CALCUATION 1.17 10*3/uL High 0.10-1.00 [facility] Comment on above: Performed By: #### L [id number] #### [facility] ([facility]) [address] [place] [address] MONOCYTES/100 LEUKOCYTES IN BLOOD BY AUTOMATED COUNT 12.6 % High 5.0-12.0 [facility] Comment on above: Performed By: #### L [id number] #### [facility] ([facility]) [address] [place] [address] NEUTROPHILS (10*3/UL) IN BLOOD BY CALCULATION 6.5 10*3/uL Normal 1.6-7.6 [facility] Comment on above: Performed By: #### L [id number] #### [facility] ([facility]) [address] [place] [address] NEUTROPHILS/100 LEUKOCYTES IN BLOOD BY AUTOMATED COUNT 70.7 % Normal 40.0-72.0 [facility] Comment on above: Performed By: #### L [id number] #### [facility] ([facility]) [address] [facility] [place] [address] PHOSPHORUSon 12-13-2023 Magnesium [Mass/Vol] 3.7 mg/dL Normal 2.5-5.0 [facility] Comment on above: Performed By: #### L [id number] #### [facility] ([facility]) [address] [place] [address] PREALBUMINon 12-13-2023 Prealbumin [Mass/Vol] 12.7 mg/dL Normal [facility] Comment on above: Performed By: #### L [id number] #### [facility] ([facility]) [address] [place] [address] TRIGLYCERIDESon 12-13-2023 FASTING? UNKNOWN Normal [facility] Comment on above: Performed By: #### L [id number] #### [facility] ([facility]) [address] [facility] [place] [address] Magnesium [Mass/Vol] 204 mg/dL High 40-149 [facility] Comment on above: Result Comment: TRIG LYCERIDE REFERENCE RANGE: 20 YEARS AND OLDER CARDIOVASCULAR RISK LESS THAN 150 mg/dL LOW RISK 150 TO 199 mg/dL BORDERLINE RISK 200 mg/dL AND GREATER HIGH RISK Performed By: #### L [id number] #### [facility] ([facility]) [address] [facility] [place] [address] BASIC METABOLIC PANELon 03- Anion gap [Moles/Vol] 21 mmol/L High 7-20 [facility] Comment on above: Performed By: #### L [id number] #### [facility] ([facility]) [address] [place] [address] Calcium [Mass/Vol] 9.8 mg/dL Normal 8.6-10.3 [facility] Comment on above: Performed By: #### L [id number] #### [facility] ([facility]) [address] [place] [address] Chloride [Moles/Vol] 97 mmol/L Low 98-107 [facility] Comment on above: Performed By: #### L [id number] #### [facility] ([facility]) [address] [place] [address] CO2 [Moles/Vol] 23 mmol/L Normal 21-31 [facility] Comment on above: Performed By: #### L [id number] #### [facility] ([facility]) [address] [place] [address] Creatinine [Mass/Vol] 1.85 mg/dL High 0.60-1.20 [facility] Comment on above: Performed By: #### L [id number] #### [facility] ([facility]) [address] [place] [address] GLOMERULAR FILTRATION RATE ML/MIN/1.73 SQ M.PREDICTED 29.7 mL/min/1.73m*2 Low >60.0 [facility] Comment on above: Result Comment: [facility]???s estimated glomerular filtration rate (eGFR) will no [...] individuals. Performed By: #### L [id number] #### [facility] ([facility]) [address] [place] [address] Glucose [Mass/Vol] 207 mg/dL High 70-100 [facility] Comment on above: Performed By: #### L [id number] #### [facility] ([facility]) [address] [place] [address] Potassium [Moles/Vol] 5.5 mmol/L High 3.5-5.1 [facility] Comment on above: Performed By: #### L [id number] #### [facility] ([facility]) [address] [place] [address] Sodium [Moles/Vol] 135 mmol/L Low 136-145 [facility] Comment on above: Performed By: #### L [id number] #### [facility] ([facility]) [address] [place] [address] Urea nitrogen [Mass/Vol] 78 mg/dL High 7-25 [facility] Comment on above: Performed By: #### L [id number] #### [facility] ([facility]) [address] [place] [address] UREA NITROGEN/CREATININ E (MASS RATIO) IN SER/PLAS 42.2 Normal [facility] Comment on above: Performed By: #### L [id number] #### [facility] ([facility]) [address] [place] [address] CBCon 12-12-2023 Erythrocyte distribution width (RBC) [Ratio] 18.8 % High 11.5-15.0 [facility] Comment on above: Performed By: #### L [id number] #### [facility] ([facility]) [address] [place] [address] ERYTHROCYTE MEAN CORPUSCULAR HEMOGLOBIN CONCENTRATION (G/DL) BY AUTOMATED 32.0 g/dL Normal 32.0-35.0 [facility] Comment on above: Performed By: #### L [id number] #### [facility] ([facility]) [address] [place] [address] Hematocrit (Bld) [Volume fraction] 28.1 % Low 36.0-48.0 [facility] Comment on above: Performed By: #### L [id number] #### [facility] ([facility]) [address] [place] [address] Hemoglobin (Bld) [Mass/Vol] 9.0 g/dL Low 12.0-15.0 [facility] Comment on above: Performed By: #### L [id number] #### [facility] ([facility]) [address] [place] [address] MCH (RBC) [Entitic mass] 30.2 pg Normal 27.0-33.0 [facility] Comment on above: Performed By: #### L [id number] #### [facility] ([facility]) [address] [place] [address] MCV (RBC) [Entitic vol] 94.3 fL Normal 82.0-98.0 [facility] Comment on above: Performed By: #### L [id number] #### [facility] ([facility]) [address] [place] [address] PLATELETS (10*3/UL) IN BLOOD AUTOMATED COUNT 142 10*3/uL Low 150-400 [facility] Comment on above: Performed By: #### L [id number] #### [facility] ([facility]) [address] [place] [address] RBC (Bld) [#/Vol] 2.98 10*6/uL Low 3.80-5.00 [facility] Comment on above: Performed By: #### L [id number] #### [facility] ([facility]) [address] [place] [address] WBC (Bld) [#/Vol] 11.81 10*3/uL High 4.00-10.60 [facility] Comment on above: Performed By: #### L [id number] #### [facility] ([facility]) [address] [place] [address] DIGOXIN LEVELon 12-12-2023 DIGOXIN (NG/ML) IN SER/PLAS 1.6 ng/mL Normal 0.7-2 [facility] Comment on above: Performed By: #### L [id number] #### [facility] ([facility]) [address] [place] [address] MAGNESIUMon 12-12-2023 Magnesium [Mass/Vol] 2.3 mg/dL Normal 1.9-2.7 [facility] Comment on above: Performed By: #### L [id number] #### [facility] ([facility]) [address] [place] [address] PHOSPHORUSon 12-12-2023 Magnesium [Mass/Vol] 2.5 mg/dL Normal 2.5-5.0 [facility] Comment on above: Performed By: #### L [id number] #### [facility] ([facility]) [address] [place] [address] CBC WITH AUTO DIFFERENTIALon 12-11-2023 Basophils (Bld) [#/Vol] 0.05 10*3/uL Normal 0.00-0.20 [facility] Comment on above: Performed By: #### L [id number] #### [facility] ([facility]) [address] [place] [address] Basophils/100 WBC (Bld) 0.4 % Normal 0.0-1.0 [facility] Comment on above: Performed By: #### L [id number] #### [facility] ([facility]) [address] [place] [address] Eosinophils (Bld) [#/Vol] 0.17 10*3/uL Normal 0.00-0.50 [facility] Comment on above: Performed By: #### L [id number] #### [facility] ([facility]) [address] [place] [address] Eosinophils/100 WBC (Bld) 1.4 % Normal 0.0-6.0 [facility] Comment on above: Performed By: #### L [id number] #### [facility] ([facility]) [address] [place] [address] Erythrocyte distribution width (RBC) [Ratio] 18.6 % High 11.5-15.0 [facility] Comment on above: Performed By: #### L [id number] #### [facility] ([facility]) [address] [place] [address] ERYTHROCYTE MEAN CORPUSCULAR HEMOGLOBIN CONCENTRATION (G/DL) BY AUTOMATED 31.8 g/dL Low 32.0-35.0 [facility] Comment on above: Performed By: #### L [id number] #### [facility] ([facility]) [address] [place] [address] Hematocrit (Bld) [Volume fraction] 28.6 % Low 36.0-48.0 [facility] Comment on above: Performed By: #### L [id number] #### [facility] ([facility]) [address] [place] [address] Hemoglobin (Bld) [Mass/Vol] 9.1 g/dL Low 12.0-15.0 [facility] Comment on above: Performed By: #### L [id number] #### [facility] ([facility]) [address] [place] [address] Immature granulocytes (Bld) [#/Vol] 0.08 10*3/uL Normal 0.00-0.20 [facility] Comment on above: Performed By: #### L [id number] #### [facility] ([facility]) [address] [place] [address] Immature granulocytes/100 WBC (Bld) 0.6 % Normal 0.0-1.0 [facility] Comment on above: Performed By: #### L [id number] #### [facility] ([facility]) [address] [place] [address] Lymphocytes (Bld) [#/Vol] 1.64 10*3/uL Normal 1.20-4.00 [facility] Comment on above: Performed By: #### L [id number] #### [facility] ([facility]) [address] [place] [address] Lymphocytes/100 WBC (Bld) 13.0 % Low 20.0-45.0 [facility] Comment on above: Performed By: #### L [id number] #### [facility] ([facility]) [address] [place] [address] MCH (RBC) [Entitic mass] 29.8 pg Normal 27.0-33.0 [facility] Comment on above: Performed By: #### L [id number] #### [facility] ([facility]) [address] [place] [address] MCV (RBC) [Entitic vol] 93.8 fL Normal 82.0-98.0 [facility] Comment on above: Performed By: #### L [id number] #### [facility] ([facility]) [address] [place] [address] Monocytes (Bld) [#/Vol] 1.46 10*3/uL High 0.10-1.00 [facility] Comment on above: Performed By: #### L [id number] #### [facility] ([facility]) [address] [place] [address] Monocytes/100 WBC (Bld) 11.6 % Normal 5.0-12.0 [facility] Comment on above: Performed By: #### L [id number] #### [facility] ([facility]) [address] [place] [address] Neutrophils (Bld) [#/Vol] 9.17 10*3/uL High 1.60-7.60 [facility] Comment on above: Performed By: #### L [id number] #### [facility] ([facility]) [address] [place] [address] Neutrophils/100 WBC (Bld) 73.0 % High 40.0-72.0 [facility] Comment on above: Performed By: #### L [id number] #### [facility] ([facility]) [address] [place] [address] NRBC (PER 100 WBCS) BY AUTOMATED COUNT 0.2 % High 0 [facility] Comment on above: Performed By: #### L [id number] #### [facility] ([facility]) [address] [place] [address] PLATELETS (10*3/UL) IN BLOOD AUTOMATED COUNT 163 10*3/uL Normal 150-400 [facility] Comment on above: Performed By: #### L [id number] #### [facility] ([facility]) [address] [place] [address] RBC (Bld) [#/Vol] 3.05 10*6/uL Low 3.80-5.00 [facility] Comment on above: Performed By: #### L [id number] #### [facility] ([facility]) [address] [place] [address] WBC (Bld) [#/Vol] 12.57 10*3/uL High 4.00-10.60 [facility] Comment on above: Performed By: #### L [id number] #### [facility] ([facility]) [address] [place] [address] COMPREHENSIVE METABOLIC PANE Elver 12-11-2023 Albumin [Mass/Vol] 3.1 g/dL Low 3.5-5.7 [facility] Comment on above: Performed By: #### L [id number] #### [facility] ([facility]) [address] [place] [address] ALP [Catalytic activity/Vol] 180 U/L High 34-104 [facility] Comment on above: Performed By: #### L [id number] #### [facility] ([facility]) [address] [place] [address] ALT [Catalytic activity/Vol] 28 U/L Normal 7-52 [facility] Comment on above: Performed By: #### L [id number] #### [facility] ([facility]) [address] [place] [address] Anion gap [Moles/Vol] 17 mmol/L Normal 7-20 [facility] Comment on above: Performed By: #### L [id number] #### [facility] ([facility]) [address] [place] [address] AST [Catalytic activity/Vol] 27 U/L Normal 13-39 [facility] Comment on above: Performed By: #### L [id number] #### [facility] ([facility]) [address] [place] [address] Bilirubin [Mass/Vol] 0.5 mg/dL Normal 0.3-1.0 [facility] Comment on above: Performed By: #### L [id number] #### [facility] ([facility]) [address] [place] [address] Calcium [Mass/Vol] 10.0 mg/dL Normal 8.6-10.3 [facility] Comment on above: Performed By: #### L [id number] #### [facility] ([facility]) [address] [place] [address] Chloride [Moles/Vol] 96 mmol/L Low 98-107 [facility] Comment on above: Performed By: #### L [id number] #### [facility] ([facility]) [address] [place] [address] CO2 [Moles/Vol] 28 mmol/L Normal 21-31 [facility] Comment on above: Performed By: #### L [id number] #### [facility] ([facility]) [address] [place] [address] Creatinine [Mass/Vol] 1.63 mg/dL High 0.60-1.20 [facility] Comment on above: Performed By: #### L [id number] #### [facility] ([facility]) [address] [place] [address] GLOMERULAR FILTRATION RATE ML/MIN/1.73 SQ M.PREDICTED 34.6 mL/min/1.73m*2 Low >60.0 [facility] Comment on above: Result Comment: [facility]???s estimated glomerular filtration rate (eGFR) will no [...] group of individuals. Performed By: #### L [id number] #### [facility] ([facility]) [address] [place] [address] Glucose [Mass/Vol] 159 mg/dL High 70-100 [facility] Comment on above: Performed By: #### L [id number] #### [facility] ([facility]) [address] [place] [address] Potassium [Moles/Vol] 5.0 mmol/L Normal 3.5-5.1 [facility] Comment on above: Performed By: #### L [id number] #### [facility] ([facility]) [address] [place] [address] Protein [Mass/Vol] 6.6 g/dL Normal 6.0-8.3 [facility] Comment on above: Performed By: #### L [id number] #### [facility] ([facility]) [address] [place] [address] Sodium [Moles/Vol] 136 mmol/L Normal 136-145 [facility] Comment on above: Performed By: #### L [id number] #### [facility] ([facility]) [address] [place] [address] Urea nitrogen [Mass/Vol] 71 mg/dL High 7-25 [facility] Comment on above: Performed By: #### L [id number] #### [facility] ([facility]) [address] [place] [address] UREA NITROGEN/CREATININ E (MASS RATIO) IN SER/PLAS 43.6 Normal [facility] Comment on above: Performed By: #### L [id number] #### [facility] ([facility]) [address] [place] [address] MAGNESIUMon 12-11-2023 Magnesium [Mass/Vol] 2.1 mg/dL Normal 1.9-2.7 [facility] Comment on above: Performed By: #### L [id number] #### [facility] ([facility]) [address] [place] [address] PHOSPHORUSon 12-11-2023 Magnesium [Mass/Vol] 1.7 mg/dL Low 2.5-5.0 [facility] Comment on above: Performed By: #### L [id number] #### [facility] ([facility]) [address] [place] [address] CBCon 12-10-2023 Erythrocyte distribution width (RBC) [Ratio] 18.8 % High 11.5-15.0 [facility] Comment on above: Performed By: #### L [id number] #### [facility] [facility] ([facility]) [address] [place] [address] ERYTHROCYTE MEAN CORPUSCULAR HEMOGLOBIN CONCENTRATION (G/DL) BY AUTOMATED 32.1 g/dL Normal 32.0-35.0 [facility] Comment on above: Performed By: #### L [id number] #### [facility] ([facility]) [address] [place] [address] Hematocrit (Bld) [Volume fraction] 29.3 % Low 36.0-48.0 [facility] Comment on above: Performed By: #### L [id number] #### [facility] ([facility]) [address] [place] [address] Hemoglobin (Bld) [Mass/Vol] 9.4 g/dL Low 12.0-15.0 [facility] Comment on above: Performed By: #### L [id number] #### [facility] ([facility]) [address] [place] [address] MCH (RBC) [Entitic mass] 30.3 pg Normal 27.0-33.0 [facility] Comment on above: Performed By: #### L [id number] #### [facility] ([facility]) [address] [place] [address] MCV (RBC) [Entitic vol] 94.5 fL Normal 82.0-98.0 [facility] Comment on above: Performed By: #### L [id number] #### [facility] ([facility]) [address] [place] [address] PLATELETS (10*3/UL) IN BLOOD AUTOMATED COUNT 167 10*3/uL Normal 150-400 [facility] Comment on above: Performed By: #### L [id number] #### [facility] ([facility]) [address] [place] [address] RBC (Bld) [#/Vol] 3.10 10*6/uL Low 3.80-5.00 [facility] Comment on above: Performed By: #### L [id number] #### [facility] ([facility]) [address] [place] [address] WBC (Bld) [#/Vol] 11.42 10*3/uL High 4.00-10.60 [facility] Comment on above: Performed By: #### L [id number] #### [facility] ([facility]) [address] [place] [address] COMPREHENSIVE METABOLIC PANE Elver 12-10-2023 Albumin [Mass/Vol] 3.2 g/dL Low 3.5-5.7 [facility] Comment on above: Performed By: #### L [id number] #### [facility] ([facility]) [address] [place] [address] ALP [Catalytic activity/Vol] 178 U/L High 34-104 [facility] Comment on above: Performed By: #### L [id number] #### [facility] ([facility]) [address] [place] [address] ALT [Catalytic activity/Vol] 26 U/L Normal 7-52 [facility] Comment on above: Performed By: #### L [id number] #### [facility] ([facility]) [address] [place] [address] Anion gap [Moles/Vol] 14 mmol/L Normal 7-20 [facility] Comment on above: Performed By: #### L [id number] #### [facility] ([facility]) [address] [place] [address] AST [Catalytic activity/Vol] 26 U/L Normal 13-39 [facility] Comment on above: Performed By: #### L [id number] #### [facility] ([facility]) [address] [place] [address] Bilirubin [Mass/Vol] 0.5 mg/dL Normal 0.3-1.0 [facility] Comment on above: Performed By: #### L [id number] #### [facility] ([facility]) [address] [place] [address] Calcium [Mass/Vol] 10.4 mg/dL High 8.6-10.3 [facility] Comment on above: Performed By: #### L [id number] #### [facility] ([facility]) [address] [place] [address] Chloride [Moles/Vol] 100 mmol/L Normal 98-107 [facility] Comment on above: Performed By: #### L [id number] #### [facility] ([facility]) [address] [place] [address] CO2 [Moles/Vol] 27 mmol/L Normal 21-31 [facility] Comment on above: Performed By: #### L [id number] #### [facility] ([facility]) [address] [place] [address] Creatinine [Mass/Vol] 1.49 mg/dL High 0.60-1.20 [facility] Comment on above: Performed By: #### L [id number] #### [facility] ([facility]) [address] [place] [address] GLOMERULAR FILTRATION RATE ML/MIN/1.73 SQ M.PREDICTED 38.5 mL/min/1.73m*2 Low >60.0 [facility] Comment on above: Result Comment: [facility]???s estimated glomerular filtration rate (eGFR) will no [...] individuals. Performed By: #### L [id number] #### [facility] ([facility]) [address] [place] [address] Glucose [Mass/Vol] 197 mg/dL High 70-100 [facility] Comment on above: Performed By: #### L [id number] #### [facility] ([facility]) [address] [place] [address] Potassium [Moles/Vol] 5.1 mmol/L Normal 3.5-5.1 [facility] Comment on above: Performed By: #### L [id number] #### [facility] ([facility]) [address] [place] [address] Protein [Mass/Vol] 6.6 g/dL Normal 6.0-8.3 [facility] Comment on above: Performed By: #### L [id number] #### [facility] ([facility]) [address] [place] [address] Sodium [Moles/Vol] 136 mmol/L Normal 136-145 [facility] Comment on above: Performed By: #### L [id number] #### [facility] ([facility]) [address] [place] [address] Urea nitrogen [Mass/Vol] 73 mg/dL High 7-25 [facility] Comment on above: Performed By: #### L [id number] #### [facility] ([facility]) [address] [place] [address] UREA NITROGEN/CREATININ E (MASS RATIO) IN SER/PLAS 49.0 Normal [facility] Comment on above: Performed By: #### L [id number] #### [facility] ([facility]) [address] [place] [address] MAGNESIUMon 12-10-2023 Magnesium [Mass/Vol] 2.2 mg/dL Normal 1.9-2.7 [facility] Comment on above: Performed By: #### L [id number] #### [facility] ([facility]) [address] [place] [address] PHOSPHORUSon 12-10-2023 Magnesium [Mass/Vol] 2.4 mg/dL Low 2.5-5.0 [facility] Comment on above: Performed By: #### L [id number] #### [facility] ([facility]) [address] [place] [address] VITAMIN D 25 HYDROXYon 12-09 CALCIDIOL (25 [place] VITAMIN D3) (NG/ML) IN SER/PLAS 14.1 ng/mL Low 30.0-80.0 [facility] Comment on above: Result Comment: >80. 0 Toxicity possible Performed By: #### L [id number] #### [facility] ([facility]) [address] [place] [address] CBC WITH AUTO DIFFERENTIALon 12-09-2023 Basophils (Bld) [#/Vol] 0.04 10*3/uL Normal 0.00-0.20 [facility] Comment on above: Performed By: #### L [id number] #### [facility] ([facility]) [address] [place] [address] Basophils/100 WBC (Bld) 0.4 % Normal 0.0-1.0 [facility] Comment on above: Performed By: #### L [id number] #### [facility] ([facility]) [address] [place] [address] Eosinophils (Bld) [#/Vol] 0.15 10*3/uL Normal 0.00-0.50 [facility] Comment on above: Performed By: #### L [id number] #### [facility] ([facility]) [address] [place] [address] Eosinophils/100 WBC (Bld) 1.4 % Normal 0.0-6.0 [facility] Comment on above: Performed By: #### L [id number] #### [facility] ([facility]) [address] [place] [address] Erythrocyte distribution width (RBC) [Ratio] 18.4 % High 11.5-15.0 [facility] Comment on above: Performed By: #### L [id number] #### [facility] ([facility]) [address] [place] [address] ERYTHROCYTE MEAN CORPUSCULAR HEMOGLOBIN CONCENTRATION (G/DL) BY AUTOMATED 32.6 g/dL Normal 32.0-35.0 [facility] Comment on above: Performed By: #### L [id number] #### [facility] ([facility]) [address] [place] [address] Hematocrit (Bld) [Volume fraction] 29.1 % Low 36.0-48.0 [facility] Comment on above: Performed By: #### L [id number] #### [facility] ([facility]) [address] [place] [address] Hemoglobin (Bld) [Mass/Vol] 9.5 g/dL Low 12.0-15.0 [facility] Comment on above: Performed By: #### L [id number] #### [facility] ([facility]) [address] [place] [address] Immature granulocytes (Bld) [#/Vol] 0.08 10*3/uL Normal 0.00-0.20 [facility] Comment on above: Performed By: #### L [id number] #### [facility] ([facility]) [address] [place] [address] Immature granulocytes/100 WBC (Bld) 0.7 % Normal 0.0-1.0 [facility] Comment on above: Performed By: #### L [id number] #### [facility] ([facility]) [address] [place] [address] Lymphocytes (Bld) [#/Vol] 1.49 10*3/uL Normal 1.20-4.00 [facility] Comment on above: Performed By: #### L [id number] #### [facility] ([facility]) [address] [facility] [place] [address] Lymphocytes/100 WBC (Bld) 14.0 % Low 20.0-45.0 [facility] Comment on above: Performed By: #### L [id number] #### [facility] ([facility]) [address] [place] [address] MCH (RBC) [Entitic mass] 30.1 pg Normal 27.0-33.0 [facility] Comment on above: Performed By: #### L [id number] #### [facility] ([facility]) [address] [place] [address] MCV (RBC) [Entitic vol] 92.1 fL Normal 82.0-98.0 [facility] Comment on above: Performed By: #### L [id number] #### [facility] ([facility]) [address] [place] [address] Monocytes (Bld) [#/Vol] 1.23 10*3/uL High 0.10-1.00 [facility] Comment on above: Performed By: #### L [id number] #### [facility] ([facility]) [address] [place] [address] Monocytes/100 WBC (Bld) 11.5 % Normal 5.0-12.0 [facility] Comment on above: Performed By: #### L [id number] #### [facility] ([facility]) [address] [place] [address] Neutrophils (Bld) [#/Vol] 7.69 10*3/uL High 1.60-7.60 [facility] Comment on above: Performed By: #### L [id number] #### [facility] ([facility]) [address] [place] [address] Neutrophils/100 WBC (Bld) 72.0 % Normal 40.0-72.0 [facility] Comment on above: Performed By: #### L [id number] #### [facility] ([facility]) [address] [place] [address] NRBC (PER 100 WBCS) BY AUTOMATED COUNT 0.2 % High 0 [facility] Comment on above: Performed By: #### L [id number] #### [facility] ([facility]) [address] [place] [address] PLATELETS (10*3/UL) IN BLOOD AUTOMATED COUNT 172 10*3/uL Normal 150-400 [facility] Comment on above: Performed By: #### L [id number] #### [facility] ([facility]) [address] [place] [address] RBC (Bld) [#/Vol] 3.16 10*6/uL Low 3.80-5.00 [facility] Comment on above: Performed By: #### L [id number] #### [facility] ([facility]) [address] [place] [address] WBC (Bld) [#/Vol] 10.68 10*3/uL High 4.00-10.60 [facility] Comment on above: Performed By: #### L [id number] #### [facility] ([facility]) [address] [place] [address] COMPREHENSIVE METABOLIC PANE Elver 12-09-2023 Albumin [Mass/Vol] 3.2 g/dL Low 3.5-5.7 [facility] Comment on above: Performed By: #### L [id number] #### [facility] ([facility]) [address] [place] [address] ALP [Catalytic activity/Vol] 152 U/L High 34-104 [facility] Comment on above: Performed By: #### L [id number] #### [facility] ([facility]) [address] [place] [address] ALT [Catalytic activity/Vol] 28 U/L Normal 7-52 [facility] Comment on above: Performed By: #### L [id number] #### [facility] ([facility]) [address] [place] [address] Anion gap [Moles/Vol] 13 mmol/L Normal 7-20 [facility] Comment on above: Performed By: #### L [id number] #### [facility] ([facility]) [address] [place] [address] AST [Catalytic activity/Vol] 27 U/L Normal 13-39 [facility] Comment on above: Performed By: #### L [id number] #### [facility] ([facility]) [address] [place] [address] Bilirubin [Mass/Vol] 0.5 mg/dL Normal 0.3-1.0 [facility] Comment on above: Performed By: #### L [id number] #### [facility] ([facility]) [address] [place] [address] Calcium [Mass/Vol] 10.1 mg/dL Normal 8.6-10.3 [facility] Comment on above: Performed By: #### L [id number] #### [facility] ([facility]) [address] [place] [address] Chloride [Moles/Vol] 99 mmol/L Normal 98-107 [facility] Comment on above: Performed By: #### L [id number] #### [facility] ([facility]) [address] [place] [address] CO2 [Moles/Vol] 27 mmol/L Normal 21-31 [facility] Comment on above: Performed By: #### L [id number] #### [facility] ([facility]) [address] [place] [address] Creatinine [Mass/Vol] 1.37 mg/dL High 0.60-1.20 [facility] Comment on above: Performed By: #### L [id number] #### [facility] ([facility]) [address] [place] [address] GLOMERULAR FILTRATION RATE ML/MIN/1.73 SQ M.PREDICTED 42.6 mL/min/1.73m*2 Low >60.0 [facility] Comment on above: Result Comment: [facility]???s estimated glomerular filtration rate (eGFR) will no [...] individuals. Performed By: #### L [id number] #### [facility] ([facility]) [address] [place] [address] Glucose [Mass/Vol] 227 mg/dL High 70-100 [facility] Comment on above: Performed By: #### L [id number] #### [facility] ([facility]) [address] [place] [address] Potassium [Moles/Vol] 4.8 mmol/L Normal 3.5-5.1 [facility] Comment on above: Performed By: #### L [id number] #### [facility] ([facility]) [address] [place] [address] Protein [Mass/Vol] 6.6 g/dL Normal 6.0-8.3 [facility] Comment on above: Performed By: #### L [id number] #### [facility] ([facility]) [address] [facility] [place] [address] Sodium [Moles/Vol] 134 mmol/L Low 136-145 [facility] Comment on above: Performed By: #### L [id number] #### [facility] ([facility]) [address] [place] [address] Urea nitrogen [Mass/Vol] 68 mg/dL High 7- [facility] Comment on above: Performed By: #### L [id number] #### [facility] ([facility]) [address] [place] [address] UREA NITROGEN/CREATININ E (MASS RATIO) IN SER/PLAS 49.6 Normal [facility] Comment on above: Performed By: #### L [id number] #### [facility] ([facility]) [address] [place] [address] MAGNESIUMon 12-09-2023 Magnesium [Mass/Vol] 2.1 mg/dL Normal 1.9-2.7 [facility] Comment on above: Performed By: #### L [id number] #### [facility] ([facility]) [address] [place] [address] PHOSPHORUSon 12-09-2023 PHOSPHATE (MG/DL) IN SER/PLAS <1.0 Low 2.5-5.0 [facility] Comment on above: Performed By: #### L [id number] #### [facility] ([facility]) [address] [place] [address] Telephoneon 12-09-2023 Telephone [phone] Correa 1955 F Date Provider Department Center 12/09/2023 CELINA MAURO [facility] NEPHRO Comprehensiv No family history on file Normal [facility] BASIC METABOLIC PANELon 11-28 Anion gap [Moles/Vol] 13 mmol/L Normal 7-20 [facility] Comment on above: Performed By: #### L [id number] #### [facility] ([facility]) [address] [place] [address] Calcium [Mass/Vol] 9.0 mg/dL Normal 8.6-10.3 [facility] Comment on above: Performed By: #### L [id number] #### [facility] ([facility]) [address] [place] [address] Chloride [Moles/Vol] 100 mmol/L Normal 98-107 [facility] Comment on above: Performed By: #### L [id number] #### [facility] ([facility]) [address] [place] [address] CO2 [Moles/Vol] 21 mmol/L Normal 21-31 [facility] Comment on above: Performed By: #### L [id number] #### [facility] ([facility]) [address] [place] [address] Creatinine [Mass/Vol] 1.35 mg/dL High 0.60-1.20 [facility] Comment on above: Performed By: #### L [id number] #### [facility] ([facility]) [address] [place] [address] GLOMERULAR FILTRATION RATE ML/MIN/1.73 SQ M.PREDICTED 43.3 mL/min/1.73m*2 Low >60.0 [facility] Comment on above: Result Comment: [facility]???s estimated glomerular filtration rate (eGFR) will no [...] group of individuals. Performed By: #### L [id number] #### [facility] ([facility]) [address] [place] [address] Glucose [Mass/Vol] 283 mg/dL High 70-100 [facility] Comment on above: Performed By: #### L [id number] #### [facility] ([facility]) [address] [place] [address] Potassium [Moles/Vol] 4.4 mmol/L Normal 3.5-5.1 [facility] Comment on above: Performed By: #### L [id number] #### [facility] ([facility]) [address] [place] [address] Sodium [Moles/Vol] 130 mmol/L Low 136-145 [facility] Comment on above: Performed By: #### L [id number] #### [facility] ([facility]) [address] [place] [address] Urea nitrogen [Mass/Vol] 70 mg/dL High 7-25 [facility] Comment on above: Performed By: #### L [id number] #### [facility] ([facility]) [address] [place] [address] UREA NITROGEN/CREATININ E (MASS RATIO) IN SER/PLAS 51.9 Normal [facility] Comment on above: Performed By: #### L [id number] #### [facility] ([facility]) [address] [place] [address] CBCon 12-08-2023 Erythrocyte distribution width (RBC) [Ratio] 18.5 % High 11.5-15.0 [facility] Comment on above: Performed By: #### L [id number] #### [facility] ([facility]) [address] [place] [address] ERYTHROCYTE MEAN CORPUSCULAR HEMOGLOBIN CONCENTRATION (G/DL) BY AUTOMATED 33.3 g/dL Normal 32.0-35.0 [facility] Comment on above: Performed By: #### L [id number] #### [facility] ([facility]) [address] [place] [address] Hematocrit (Bld) [Volume fraction] 27.0 % Low 36.0-48.0 [facility] Comment on above: Performed By: #### L [id number] #### [facility] ([facility]) [address] [place] [address] Hemoglobin (Bld) [Mass/Vol] 9.0 g/dL Low 12.0-15.0 [facility] Comment on above: Performed By: #### L [id number] #### [facility] ([facility]) [address] [place] [address] MCH (RBC) [Entitic mass] 30.5 pg Normal 27.0-33.0 [facility] Comment on above: Performed By: #### L [id number] #### [facility] ([facility]) [address] [place] [address] MCV (RBC) [Entitic vol] 91.5 fL Normal 82.0-98.0 [facility] Comment on above: Performed By: #### L [id number] #### [facility] ([facility]) [address] [place] [address] PLATELETS (10*3/UL) IN BLOOD AUTOMATED COUNT 173 10*3/uL Normal 150-400 [facility] Comment on above: Performed By: #### L [id number] #### [facility] ([facility]) [address] [place] [address] RBC (Bld) [#/Vol] 2.95 10*6/uL Low 3.80-5.00 [facility] Comment on above: Performed By: #### L [id number] #### [facility] ([facility]) [address] [place] [address] WBC (Bld) [#/Vol] 10.45 10*3/uL Normal 4.00-10.60 [facility] Comment on above: Performed By: #### L [id number] #### [facility] ([facility]) [address] [place] [address] TROPONIN Ion 12-08-2023 Troponin I.cardiac [Mass/Vol] 0.04 ng/mL Normal 0.00-0.04 [facility] Comment on above: Performed By: #### L [id number] #### [facility] ([facility]) [address] [place] [address] Troponin I.cardiac [Mass/Vol] 0.04 ng/mL Normal 0.00-0.04 [facility] Comment on above: Performed By: #### L [id number] #### [facility] ([facility]) [address] [place] [address] BASIC METABOLIC PANELon 03-0 Anion gap [Moles/Vol] 14 mmol/L Normal 7-20 [facility] Comment on above: Performed By: #### L [id number] #### [facility] ([facility]) [address] [place] [address] Calcium [Mass/Vol] 9.0 mg/dL Normal 8.6-10.3 [facility] Comment on above: Performed By: #### L [id number] #### [facility] ([facility]) [address] [place] [address] Chloride [Moles/Vol] 103 mmol/L Normal 98-107 [facility] Comment on above: Performed By: #### L [id number] #### [facility] ([facility]) [address] [place] [address] CO2 [Moles/Vol] 20 mmol/L Low 21-31 [facility] Comment on above: Performed By: #### L [id number] #### [facility] ([facility]) [address] [place] [address] Creatinine [Mass/Vol] 1.38 mg/dL High 0.60-1.20 [facility] Comment on above: Performed By: #### L [id number] #### [facility] ([facility]) [address] [place] [address] GLOMERULAR FILTRATION RATE ML/MIN/1.73 SQ M.PREDICTED 42.2 mL/min/1.73m*2 Low >60.0 [facility] Comment on above: Result Comment: [facility]???s estimated glomerular filtration rate (eGFR) will no [...] individuals. Performed By: #### L [id number] #### [facility] ([facility]) [address] [place] [address] Glucose [Mass/Vol] 175 mg/dL High 70-100 [facility] Comment on above: Performed By: #### L [id number] #### [facility] ([facility]) [address] [place] [address] Potassium [Moles/Vol] 4.2 mmol/L Normal 3.5-5.1 [facility] Comment on above: Performed By: #### L [id number] #### [facility] ([facility]) [address] [place] [address] Sodium [Moles/Vol] 133 mmol/L Low 136-145 [facility] Comment on above: Performed By: #### L [id number] #### [facility] ([facility]) [address] [place] [address] Urea nitrogen [Mass/Vol] 70 mg/dL High 7-25 [facility] Comment on above: Performed By: #### L [id number] #### [facility] ([facility]) [address] [place] [address] UREA NITROGEN/CREATININ E (MASS RATIO) IN SER/PLAS 50.7 Normal [facility] Comment on above: Performed By: #### L [id number] #### [facility] ([facility]) [address] [place] [address] CBCon 12-07-2023 Erythrocyte distribution width (RBC) [Ratio] 18.3 % High 11.5-15.0 [facility] Comment on above: Performed By: #### L [id number] #### [facility] ([facility]) [address] [place] [address] ERYTHROCYTE MEAN CORPUSCULAR HEMOGLOBIN CONCENTRATION (G/DL) BY AUTOMATED 32.3 g/dL Normal 32.0-35.0 [facility] Comment on above: Performed By: #### L [id number] #### [facility] ([facility]) [address] [place] [address] Hematocrit (Bld) [Volume fraction] 28.8 % Low 36.0-48.0 [facility] Comment on above: Performed By: #### L [id number] #### [facility] ([facility]) [address] [place] [address] Hemoglobin (Bld) [Mass/Vol] 9.3 g/dL Low 12.0-15.0 [facility] Comment on above: Performed By: #### L [id number] #### [facility] ([facility]) [address] [place] [address] MCH (RBC) [Entitic mass] 29.8 pg Normal 27.0-33.0 [facility] Comment on above: Performed By: #### L [id number] #### [facility] ([facility]) [address] [place] [address] MCV (RBC) [Entitic vol] 92.3 fL Normal 82.0-98.0 [facility] Comment on above: Performed By: #### L [id number] #### [facility] ([facility]) [address] [place] [address] PLATELETS (10*3/UL) IN BLOOD AUTOMATED COUNT 189 10*3/uL Normal 150-400 [facility] Comment on above: Performed By: #### L [id number] #### [facility] ([facility]) [address] [place] [address] RBC (Bld) [#/Vol] 3.12 10*6/uL Low 3.80-5.00 [facility] Comment on above: Performed By: #### L [id number] #### [facility] ([facility]) [address] [place] [address] WBC (Bld) [#/Vol] 13.21 10*3/uL High 4.00-10.60 [facility] Comment on above: Performed By: #### L [id number] #### [facility] ([facility]) [address] [place] [address] PROCALCITONIN TESTon 024 PROCALCITONIN IN BLOOD 0.48 ng/mL High 0.00-0.10 [facility] Comment on above: Result Comment: Susp ected [...] and initial PCT<0.5ng/mL Performed By: #### L [id number] #### [facility] ([facility]) [address] [place] [address] CBC WITH AUTO DIFFERENTIALon 12-06-2023 Basophils (Bld) [#/Vol] 0.05 10*3/uL Normal 0.00-0.20 [facility] Comment on above: Performed By: #### L [id number] #### [facility] ([facility]) [address] [place] [address] Basophils/100 WBC (Bld) 0.3 % Normal 0.0-1.0 [facility] Comment on above: Performed By: #### L [id number] #### [facility] ([facility]) [address] [place] [address] Eosinophils (Bld) [#/Vol] 0.17 10*3/uL Normal 0.00-0.50 [facility] Comment on above: Performed By: #### L [id number] #### [facility] ([facility]) [address] [place] [address] Eosinophils/100 WBC (Bld) 1.1 % Normal 0.0-6.0 [facility] Comment on above: Performed By: #### L [id number] #### [facility] ([facility]) [address] [place] [address] Erythrocyte distribution width (RBC) [Ratio] 18.2 % High 11.5-15.0 [facility] Comment on above: Performed By: #### L [id number] #### [facility] ([facility]) [address] [place] [address] ERYTHROCYTE MEAN CORPUSCULAR HEMOGLOBIN CONCENTRATION (G/DL) BY AUTOMATED 33.6 g/dL Normal 32.0-35.0 [facility] Comment on above: Performed By: #### L [id number] #### [facility] ([facility]) [address] [place] [address] Hematocrit (Bld) [Volume fraction] 28.6 % Low 36.0-48.0 [facility] Comment on above: Performed By: #### L [id number] #### [facility] ([facility]) [address] [place] [address] Hemoglobin (Bld) [Mass/Vol] 9.6 g/dL Low 12.0-15.0 [facility] Comment on above: Performed By: #### L [id number] #### [facility] ([facility]) [address] [place] [address] Immature granulocytes (Bld) [#/Vol] 0.09 10*3/uL Normal 0.00-0.20 [facility] Comment on above: Performed By: #### L [id number] #### [facility] ([facility]) [address] [place] [address] Immature granulocytes/100 WBC (Bld) 0.6 % Normal 0.0-1.0 [facility] Comment on above: Performed By: #### L [id number] #### [facility] ([facility]) [address] [place] [address] Lymphocytes (Bld) [#/Vol] 1.61 10*3/uL Normal 1.20-4.00 [facility] Comment on above: Performed By: #### L [id number] #### [facility] ([facility]) [address] [place] [place] [address] Lymphocytes/100 WBC (Bld) 10.7 % Low 20.0-45.0 [facility] Comment on above: Performed By: #### L [id number] #### [facility] ([facility]) [address] [place] [address] MCH (RBC) [Entitic mass] 30.1 pg Normal 27.0-33.0 [facility] Comment on above: Performed By: #### L [id number] #### [facility] ([facility]) [address] [place] [place] [address] MCV (RBC) [Entitic vol] 89.7 fL Normal 82.0-98.0 [facility] Comment on above: Performed By: #### L [id number] #### [facility] ([facility]) [address] [place] [address] Monocytes (Bld) [#/Vol] 1.22 10*3/uL High 0.10-1.00 [facility] Comment on above: Performed By: #### L [id number] #### [facility] ([facility]) [address] [place] [address] Monocytes/100 WBC (Bld) 8.1 % Normal 5.0-12.0 [facility] Comment on above: Performed By: #### L [id number] #### [facility] ([facility]) [address] [place] [address] Neutrophils (Bld) [#/Vol] 11.94 10*3/uL High 1.60-7.60 [facility] Comment on above: Performed By: #### L [id number] #### [facility] ([facility]) [address] [place] [address] Neutrophils/100 WBC (Bld) 79.2 % High 40.0-72.0 [facility] Comment on above: Performed By: #### L [id number] #### [facility] ([facility]) [address] [place] [address] NRBC (PER 100 WBCS) BY AUTOMATED COUNT 0.0 % Normal 0 [facility] Comment on above: Performed By: #### L [id number] #### [facility] ([facility]) [address] [place] [address] PLATELETS (10*3/UL) IN BLOOD AUTOMATED COUNT 190 10*3/uL Normal 150-400 [facility] Comment on above: Performed By: #### L [id number] #### [facility] ([facility]) [address] [place] [address] RBC (Bld) [#/Vol] 3.19 10*6/uL Low 3.80-5.00 [facility] Comment on above: Performed By: #### L [id number] #### [facility] ([facility]) [address] [place] [address] WBC (Bld) [#/Vol] 15.08 10*3/uL High 4.00-10.60 [facility] Comment on above: Performed By: #### L [id number] #### [facility] ([facility]) [address] [place] [address] COMPREHENSIVE METABOLIC PANE Elver 12-06-2023 Albumin [Mass/Vol] 3.3 g/dL Low 3.5-5.7 [facility] Comment on above: Performed By: #### L [id number] #### [facility] ([facility]) [address] [place] [address] ALP [Catalytic activity/Vol] 176 U/L High 34-104 [facility] Comment on above: Performed By: #### L [id number] #### [facility] ([facility]) [address] [place] [address] ALT [Catalytic activity/Vol] 27 U/L Normal 7-52 [facility] Comment on above: Performed By: #### L [id number] #### [facility] ([facility]) [address] [place] [address] Anion gap [Moles/Vol] 15 mmol/L Normal 7-20 [facility] Comment on above: Performed By: #### L [id number] #### [facility] ([facility]) [address] [place] [address] AST [Catalytic activity/Vol] 25 U/L Normal 13-39 [facility] Comment on above: Performed By: #### L [id number] #### [facility] ([facility]) [address] [place] [address] Bilirubin [Mass/Vol] 0.7 mg/dL Normal 0.3-1.0 [facility] Comment on above: Performed By: #### L [id number] #### [facility] ([facility]) [address] [place] [address] Calcium [Mass/Vol] 8.1 mg/dL Low 8.6-10.3 [facility] Comment on above: Performed By: #### L [id number] #### [facility] ([facility]) [address] [place] [address] Chloride [Moles/Vol] 103 mmol/L Normal 98-107 [facility] Comment on above: Performed By: #### L [id number] #### [facility] ([facility]) [address] [place] [address] CO2 [Moles/Vol] 19 mmol/L Low 21-31 [facility] Comment on above: Performed By: #### L [id number] #### [facility] ([facility]) [address] [place] [address] Creatinine [Mass/Vol] 1.30 mg/dL High 0.60-1.20 [facility] Comment on above: Performed By: #### L [id number] #### [facility] ([facility]) [address] [place] [address] GLOMERULAR FILTRATION RATE ML/MIN/1.73 SQ M.PREDICTED 45.4 mL/min/1.73m*2 Low >60.0 [facility] Comment on above: Result Comment: [facility]???s estimated glomerular filtration rate (eGFR) will no [...] individuals. Performed By: #### L [id number] #### [facility] ([facility]) [address] [place] [address] Glucose [Mass/Vol] 208 mg/dL High 70-100 [facility] Comment on above: Performed By: #### L [id number] #### [facility] ([facility]) [address] [place] [address] Potassium [Moles/Vol] 3.7 mmol/L Normal 3.5-5.1 [facility] Comment on above: Performed By: #### L [id number] #### [facility] ([facility]) [address] [place] [address] Protein [Mass/Vol] 6.6 g/dL Normal 6.0-8.3 [facility] Comment on above: Performed By: #### L [id number] #### [facility] ([facility]) [address] [place] [address] Sodium [Moles/Vol] 133 mmol/L Low 136-145 [facility] Comment on above: Performed By: #### L [id number] #### [facility] ([facility]) [address] [place] [address] Urea nitrogen [Mass/Vol] 60 mg/dL High 7-25 [facility] Comment on above: Performed By: #### L [id number] #### [facility] ([facility]) [address] [place] [address] UREA NITROGEN/CREATININ E (MASS RATIO) IN SER/PLAS 46.2 Normal [facility] Comment on above: Performed By: #### L [id number] #### [facility] ([facility]) [address] [place] [address] MAGNESIUMon 12-06-2023 Magnesium [Mass/Vol] 1.9 mg/dL Normal 1.9-2.7 [facility] Comment on above: Performed By: #### L [id number] #### [facility] ([facility]) [address] [place] [address] PHOSPHORUSon 12-06-2023 Magnesium [Mass/Vol] 3.2 mg/dL Normal 2.5-5.0 [facility] Comment on above: Performed By: #### L [id number] #### [facility] ([facility]) [address] [place] [address] PREALBUMINon 12-06-2023 Prealbumin [Mass/Vol] 19.7 mg/dL Normal [facility] Comment on above: Performed By: #### L [id number] #### [facility] ([facility]) [address] [place] [address] TRIGLYCERIDESon 12-06-2023 FASTING? Unknown Normal [facility] Comment on above: Performed By: #### L [id number] #### [facility] ([facility]) [address] [place] [address] Magnesium [Mass/Vol] 271 mg/dL High 40-149 [facility] Comment on above: Result Comment: TRIG LYCERIDE REFERENCE RANGE: 20 YEARS AND OLDER CARDIOVASCULAR RISK LESS THAN 150 mg/dL LOW RISK 150 TO 199 mg/dL BORDERLINE RISK 200 mg/dL AND GREATER HIGH RISK Performed By: #### L [id number] #### [facility] ([facility]) [address] [place] [address] CBC WITH AUTO DIFFERENTIALon 12-05-2023 Basophils (Bld) [#/Vol] 0.04 10*3/uL Normal 0.00-0.20 [facility] Comment on above: Performed By: #### L [id number] #### [facility] ([facility]) [address] [place] [address] Basophils/100 WBC (Bld) 0.3 % Normal 0.0-1.0 [facility] Comment on above: Performed By: #### L [id number] #### [facility] ([facility]) [address] [place] [address] Eosinophils (Bld) [#/Vol] 0.13 10*3/uL Normal 0.00-0.50 [facility] Comment on above: Performed By: #### L [id number] #### [facility] ([facility]) [address] [place] [address] Eosinophils/100 WBC (Bld) 0.9 % Normal 0.0-6.0 [facility] Comment on above: Performed By: #### L [id number] #### [facility] ([facility]) [address] [place] [address] Erythrocyte distribution width (RBC) [Ratio] 18.1 % High 11.5-15.0 [facility] Comment on above: Performed By: #### L [id number] #### [facility] ([facility]) [address] [place] [address] ERYTHROCYTE MEAN CORPUSCULAR HEMOGLOBIN CONCENTRATION (G/DL) BY AUTOMATED 33.3 g/dL Normal 32.0-35.0 [facility] Comment on above: Performed By: #### L [id number] #### [facility] ([facility]) [address] [place] [address] Hematocrit (Bld) [Volume fraction] 28.5 % Low 36.0-48.0 [facility] Comment on above: Performed By: #### L [id number] #### [facility] ([facility]) [address] [place] [address] Hemoglobin (Bld) [Mass/Vol] 9.5 g/dL Low 12.0-15.0 [facility] Comment on above: Performed By: #### L [id number] #### [facility] ([facility]) [address] [place] [address] Immature granulocytes (Bld) [#/Vol] 0.08 10*3/uL Normal 0.00-0.20 [facility] Comment on above: Performed By: #### L [id number] #### [facility] ([facility]) [address] [place] [address] Immature granulocytes/100 WBC (Bld) 0.6 % Normal 0.0-1.0 [facility] Comment on above: Performed By: #### L [id number] #### [facility] ([facility]) [address] [place] [address] Lymphocytes (Bld) [#/Vol] 1.91 10*3/uL Normal 1.20-4.00 [facility] Comment on above: Performed By: #### L [id number] #### [facility] ([facility]) [address] [place] [address] Lymphocytes/100 WBC (Bld) 13.8 % Low 20.0-45.0 [facility] Comment on above: Performed By: #### L [id number] #### [facility] ([facility]) [address] [place] [address] MCH (RBC) [Entitic mass] 30.0 pg Normal 27.0-33.0 [facility] Comment on above: Performed By: #### L [id number] #### [facility] ([facility]) [address] [place] [address] MCV (RBC) [Entitic vol] 89.9 fL Normal 82.0-98.0 [facility] Comment on above: Performed By: #### L [id number] #### [facility] ([facility]) [address] [place] [address] Monocytes (Bld) [#/Vol] 1.24 10*3/uL High 0.10-1.00 [facility] Comment on above: Performed By: #### L [id number] #### [facility] ([facility]) [address] [place] [address] Monocytes/100 WBC (Bld) 9.0 % Normal 5.0-12.0 [facility] Comment on above: Performed By: #### L [id number] #### [facility] ([facility]) [address] [place] [address] Neutrophils (Bld) [#/Vol] 10.44 10*3/uL High 1.60-7.60 [facility] Comment on above: Performed By: #### L [id number] #### [facility] ([facility]) [address] [place] [address] Neutrophils/100 WBC (Bld) 75.4 % High 40.0-72.0 [facility] Comment on above: Performed By: #### L [id number] #### [facility] ([facility]) [address] [place] [address] NRBC (PER 100 WBCS) BY AUTOMATED COUNT 0.0 % Normal 0 [facility] Comment on above: Performed By: #### L [id number] #### [facility] ([facility]) [address] [place] [address] PLATELETS (10*3/UL) IN BLOOD AUTOMATED COUNT 167 10*3/uL Normal 150-400 [facility] Comment on above: Performed By: #### L [id number] #### [facility] ([facility]) [address] [place] [address] RBC (Bld) [#/Vol] 3.17 10*6/uL Low 3.80-5.00 [facility] Comment on above: Performed By: #### L [id number] #### [facility] ([facility]) [address] [place] [address] WBC (Bld) [#/Vol] 13.84 10*3/uL High 4.00-10.60 [facility] Comment on above: Performed By: #### L [id number] #### [facility] ([facility]) [address] [place] [address] COMPREHENSIVE METABOLIC PANE Elver 12-05-2023 Albumin [Mass/Vol] 3.2 g/dL Low 3.5-5.7 [facility] Comment on above: Performed By: #### L [id number] #### [facility] ([facility]) [address] [place] [address] ALP [Catalytic activity/Vol] 160 U/L High 34-104 [facility] Comment on above: Performed By: #### L [id number] #### [facility] ([facility]) [address] [place] [address] ALT [Catalytic activity/Vol] 26 U/L Normal 7-52 [facility] Comment on above: Performed By: #### L [id number] #### [facility] ([facility]) [address] [place] [address] Anion gap [Moles/Vol] 14 mmol/L Normal 7-20 [facility] Comment on above: Performed By: #### L [id number] #### [facility] ([facility]) [address] [place] [address] AST [Catalytic activity/Vol] 21 U/L Normal 13-39 [facility] Comment on above: Performed By: #### L [id number] #### [facility] ([facility]) [address] [place] [address] Bilirubin [Mass/Vol] 0.7 mg/dL Normal 0.3-1.0 [facility] Comment on above: Performed By: #### L [id number] #### [facility] ([facility]) [address] [place] [address] Calcium [Mass/Vol] 8.2 mg/dL Low 8.6-10.3 [facility] Comment on above: Performed By: #### L [id number] #### [facility] ([facility]) [address] [place] [address] Chloride [Moles/Vol] 102 mmol/L Normal 98-107 [facility] Comment on above: Performed By: #### L [id number] #### [facility] ([facility]) [address] [place] [address] CO2 [Moles/Vol] 22 mmol/L Normal 21-31 [facility] Comment on above: Performed By: #### L [id number] #### [facility] ([facility]) [address] [place] [address] Creatinine [Mass/Vol] 1.17 mg/dL Normal 0.60-1.20 [facility] Comment on above: Performed By: #### L [id number] #### [facility] ([facility]) [address] [place] [address] GLOMERULAR FILTRATION RATE ML/MIN/1.73 SQ M.PREDICTED 51.5 mL/min/1.73m*2 Low >60.0 [facility] Comment on above: Result Comment: [facility]???s estimated glomerular filtration rate (eGFR) will no [...] individuals. Performed By: #### L [id number] #### [facility] ([facility]) [address] [place] [address] Glucose [Mass/Vol] 120 mg/dL High 70-100 [facility] Comment on above: Performed By: #### L [id number] #### [facility] ([facility]) [address] [place] [address] Potassium [Moles/Vol] 3.9 mmol/L Normal 3.5-5.1 [facility] Comment on above: Performed By: #### L [id number] #### [facility] ([facility]) [address] [place] [address] Protein [Mass/Vol] 6.5 g/dL Normal 6.0-8.3 [facility] Comment on above: Performed By: #### L [id number] #### [facility] ([facility]) [address] [place] [address] Sodium [Moles/Vol] 134 mmol/L Low 136-145 [facility] Comment on above: Performed By: #### L [id number] #### [facility] ([facility]) [address] [place] [address] Urea nitrogen [Mass/Vol] 57 mg/dL High 7-25 [facility] Comment on above: Performed By: #### L [id number] #### [facility] ([facility]) [address] [place] [place] [address] UREA NITROGEN/CREATININ E (MASS RATIO) IN SER/PLAS 48.7 Normal [facility] Comment on above: Performed By: #### L [id number] #### [facility] ([facility]) [address] [place] [address] MAGNESIUMon 12-05-2023 Magnesium [Mass/Vol] 1.9 mg/dL Normal 1.9-2.7 [facility] Comment on above: Performed By: #### L [id number] #### [facility] ([facility]) [address] [address] PHOSPHORUSon 12-05-2023 Magnesium [Mass/Vol] 3.2 mg/dL Normal 2.5-5.0 [facility] Comment on above: Performed By: #### L [id number] #### [facility] ([facility]) [address] [place] [address] PREALBUMINon 12-05-2023 Prealbumin [Mass/Vol] 24.8 mg/dL Normal [facility] Comment on above: Performed By: #### L [id number] #### [facility] ([facility]) [address] [place] [address] URINALYSISon 12-05-2023 BILIRUBIN, TOTAL PRESENCE IN URINE Negative Normal Negative [facility] Comment on above: Performed By: #### L [id number] #### [facility] ([facility]) [address] [place] [address] Clarity (U) Slightly Cloudy Abnormal [facility] Comment on above: Performed By: #### L [id number] #### [facility] ([facility]) [address] [place] [address] Color (U) Yellow Normal Yellow [facility] Comment on above: Performed By: #### L [id number] #### [facility] ([facility]) [address] [place] [address] Glucose (U) [Mass/Vol] Negative Normal Negative [facility] Comment on above: Performed By: #### L [id number] #### [facility] ([facility]) [address] [place] [address] HEMOGLOBIN PRESENCE IN URINE Negative Normal Negative [facility] Comment on above: Performed By: #### L [id number] #### [facility] ([facility]) [address] [place] [address] Ketones Ql (U) Negative Normal Negative [facility] Comment on above: Performed By: #### L [id number] #### [facility] ([facility]) [address] [place] [address] LEUKOCYTE ESTERASE PRESENCE IN URINE BY TEST STRIP Moderate Abnormal Negative [facility] Comment on above: Performed By: #### L [id number] #### [facility] ([facility]) [address] [place] [address] NITRITE PRESENCE IN URINE Negative Normal Negative [facility] Comment on above: Performed By: #### L [id number] #### [facility] ([facility]) [address] [place] [address] pH (U) 7.0 [pH] Normal 5.0-8.0 [facility] Comment on above: Performed By: #### L [id number] #### [facility] ([facility]) [address] [place] [address] Protein (U) [Mass/Vol] Negative Normal Negative [facility] Comment on above: Performed By: #### L [id number] #### [facility] ([facility]) [address] [place] [address] Specific gravity (U) [Rel density] 1.010 Low 1.015-1.020 [facility] Comment on above: Performed By: #### L [id number] #### [facility] ([facility]) [address] [place] [address] URINALYSIS MICROSCOPICon CASTS IN URINE Present Abnormal None Seen [facility] Comment on above: Performed By: #### L [id number] #### [facility] ([facility]) [address] [place] [address] CRYSTALS IN URINE Normal [facility] Comment on above: Performed By: #### L [id number] #### [facility] ([facility]) [address] [place] [address] HYALINE CASTS /LPF IN URINE SEDIMENT BY MICROSCOPY 31 /LPF High <1 [facility] Comment on above: Performed By: #### L [id number] #### [facility] ([facility]) [address] [place] [address] MUCUS (#/HPF) IN URINE SEDIMENT Few Normal None Seen, Occasional, Few [facility] Comment on above: Performed By: #### L [id number] #### [facility] ([facility]) [address] [place] [address] RBC (#/HPF) IN URINE SEDIMENT 21-50 Abnormal None Seen [facility] Comment on above: Performed By: #### L [id number] #### [facility] ([facility]) [address] [place] [address] SQUAMOUS EPITHELIAL CELLS (#/HPF) IN URINE SEDIMENT Moderate Abnormal None Seen, Occasional [facility] Comment on above: Performed By: #### L [id number] #### [facility] ([facility]) [address] [place] [address] WBC (LEUKOCYTE) (#/HPF) IN URINE SEDIMENT 21-50 Abnormal None Seen [facility] Comment on above: Performed By: #### L [id number] #### [facility] ([facility]) [address] [place] [address] YEAST, BUDDING (#/HPF) IN URINE Many Abnormal None Seen [facility] Comment on above: Performed By: #### L [id number] #### [facility] ([facility]) [address] [place] [address] URINE CULTURE, ROUTINEon Bacteria identified Cx Nom (U) DEBRA ALBICANS Abnormal [facility] Comment on above: Result Comment: >100 ,000 CFU/Ml Debra albicans Presumptive Identification Performed By: #### L [id number] #### [facility] ([facility]) [address] [place] [address] CBC AND AUTO DIFFon 12-04-19 24 ABSOLUTE BASOPHIL 0.1 X10E9/L Normal 0.0-0.2 [facility] Comment on above: Performed By: #### C BCA, CMP, 39104-0 ####[facility] ([id number])[address], [address], [place] [address] ABSOLUTE NEUTROPHIL 8.9 X10E9/L High 1.5-6.6 [facility] Comment on above: Performed By: #### C BCA, CMP, 29306-6 ####[facility] ([id number])[address], [place] [address] Basophils/100 WBC (Bld) 0.7 % Normal [facility] Comment on above: Performed By: #### Dru SHEA CMP, ####[facility] ([id number])[address], [address] [address] Eosinophils (Bld) [#/Vol] 0.1 10*3/uL Normal 0.0-0.4 [facility] Comment on above: Performed By: #### Dru SHEA CMP, ####[facility] ([id number])[address] [address] [address] Eosinophils/100 WBC (Bld) 1.0 % Normal [facility] Comment on above: Performed By: #### Dru SHEA CMP, ####[facility] ([id number])[address] [address] [address] Erythrocyte distribution width (RBC) [Ratio] 19.3 % High 11.5-15.0 [facility] Comment on above: Performed By: #### Dru SHEA CMP, ####[facility] ([id number])[address] [address] [address] Hematocrit (Bld) [Volume fraction] 27.1 % Low 35-47 [facility] Comment on above: Performed By: #### Dru SHEA CMP, ####[facility] ([id number])[address] [address] [address] Hemoglobin (Bld) [Mass/Vol] 9.0 g/dL Low 11.7-15.5 [facility] Comment on above: Performed By: #### Dru SHEA CMP, ####[facility] ([id number])[address] [address] [address] Lymphocytes (Bld) [#/Vol] 1.6 10*3/uL Normal 1.0-3.5 [facility] Comment on above: Performed By: #### C TOO SHEA, ####[facility] ([id number])[address] [address] Lymphocytes/100 WBC (Bld) 13.3 % Normal [facility] Comment on above: Performed By: #### Dru SHEA CMP, ####[facility] ([id number])[address], [address], [place] [address] MCH (RBC) [Entitic mass] 29.7 pg Normal 27-34 [facility] Comment on above: Performed By: #### Dru SHEA CMP, ####[facility] ([id number])[address], [address], [place] [address] MCHC (RBC) [Mass/Vol] 33.0 g/dL Normal 32-36 [facility] Comment on above: Performed By: #### Dru SHEA CMP, ####[facility] ([id number])[address], [address] [address] MCV (RBC) [Entitic vol] 90 fL Normal 80-100 [facility] Comment on above: Performed By: #### Dru SHEA CMP, ####[facility] ([id number])[address], [address] [address] Monocytes (Bld) [#/Vol] 1.1 10*3/uL High 0-0.9 [facility] Comment on above: Performed By: #### Dru SHEA, CMP, ####[facility] ([id number])[address] [address] Monocytes/100 WBC (Bld) 9.3 % Normal [facility] Comment on above: Performed By: #### C BCA, CMP, ####[facility] ([id number])[address] [address] [place] [address] Neutrophils/100 WBC (Bld) 75.7 % Normal [facility] Comment on above: Performed By: #### C BCA, CMP, ####[facility] ([id number])[address], [address] [place] [address] Platelet mean volume (Bld) [Entitic vol] 10.6 fL Normal 7-12 [facility] Comment on above: Performed By: #### Dru SHEA, CMP, ####[facility] ([id number])[address] [address] Platelets (Bld) [#/Vol] 137 10*3/uL Low 150-450 [facility] Comment on above: Performed By: #### Dru SHEA, CMP, ####[facility] ([id number])[address] [address] [place] [address] RBC COUNT 3.02 X10E12/L Low 3.80-5.20 [facility] Comment on above: Performed By: #### Dru SHEA, CMP, ####[facility] ([id number])[address] [address] [place] [address] WBC (Bld) [#/Vol] 11.8 10*3/uL High 4.0-11.0 [facility] Comment on above: Performed By: #### C MONSE, CMP, ####[facility] ([id number])[address], [address] [place] [address] COMPREHENSIVE METABOLIC PANE Elver 12-04-2023 Albumin [Mass/Vol] 3.1 g/dL Low 3.2-5.3 [facility] Comment on above: Performed By: #### Dru SHEA, CMP, ####[facility] ([id number])[address], [address], [place] [address] ALP [Catalytic activity/Vol] 153 U/L High 39-130 [facility] Comment on above: Performed By: #### C BCA, CMP, ####[facility] ([id number])[address], [address], [place] [address] ALT [Catalytic activity/Vol] 27 U/L Normal 0-31 [facility] Comment on above: Performed By: #### C BCA, CMP, ####[facility] ([id number])[address], [address], [place] [address] Anion gap [Moles/Vol] 11 mmol/L Normal 5-15 [facility] Comment on above: Performed By: #### C BCA, CMP, ####[facility] ([id number])[address], [address], [place] [address] AST [Catalytic activity/Vol] 21 U/L Normal 0-41 [facility] Comment on above: Performed By: #### C BCA, CMP, ####[facility] ([id number])[address], [address], [place] [address] Bilirubin [Mass/Vol] 0.6 mg/dL Normal 0.3-1.2 [facility] Comment on above: Performed By: #### C BCA, CMP, ####[facility] ([id number])[address], [address], [place] [address] Calcium [Mass/Vol] 8.6 mg/dL Normal 8.5-10.5 [facility] Comment on above: Performed By: #### C BCA, CMP, ####[facility] ([id number])[address], [address], [place] [address] Chloride [Moles/Vol] 102 mmol/L Normal 98-109 [facility] Comment on above: Performed By: #### C MONSE [facility], ####[facility] ([id number])[address], [address], [place] [address] CO2 [Moles/Vol] 21 mmol/L Low 22-32 [facility] Comment on above: Performed By: #### C TOO SHEA, ####[facility] ([id number])[address] [address], [place] [address] Creatinine [Mass/Vol] 1.17 mg/dL High 0.40-1.00 [facility] Comment on above: Result Comment: METH OD TRACEABLE TO IDMS STANDARD Performed By: #### C TOO SHEA, ####[facility] ([id number])[address] [address] GFR/1.73 sq M.predicted among non-blacks MDRD (S/P/Bld) [Vol rate/Area] 51 mL/min/{1.73_m2} Low >59 [facility] Comment on above: Result Comment: Repo rted eGFR is based on theCKD-EPI 2020 equation that doesnot use a race coefficient. Performed By: #### C TOO SHEA, ####[facility] ([id number])[address] [address], [place] [address] Glucose [Mass/Vol] 228 mg/dL High 65-99 [facility] Comment on above: Performed By: #### C TOO SHEA, ####[facility] ([id number])[address] [address] [address] Potassium [Moles/Vol] 4.1 mmol/L Normal 3.5-5.0 [facility] Comment on above: Performed By: #### C TOO SHEA, ####[facility] ([id number])[address], [address] [place] [address] Protein [Mass/Vol] 6.6 g/dL Normal 6.0-8.0 [facility] Comment on above: Performed By: #### C MONSE CMP, ####[facility] ([id number])[address], [address] [place] [address] Sodium [Moles/Vol] 134 mmol/L Normal 134-146 [facility] Comment on above: Performed By: #### Dru SHEA CMP, ####[facility] ([id number])[address], [address] [place] [address] Urea nitrogen [Mass/Vol] 55 mg/dL High 5-27 [facility] Comment on above: Performed By: #### Dru SHEA CMP, ####[facility] ([id number])[address], [address] [place] [address] Glucose Glucometer (BldC) [M ass/Vol]on 12-04-2023 Glucose [Mass/Vol] 273 mg/dL High 65-99 [facility] Glucose [Mass/Vol] 252 mg/dL High 65-99 [facility] Glucose [Mass/Vol] 258 mg/dL High 65-99 [facility] MAGNESIUMon 12-04-2023 Magnesium [Mass/Vol] 1.9 mg/dL Normal 1.8-2.6 [facility] Comment on above: Performed By: #### C BCA, CMP, ####[facility] ([id number])[address], [address] [place] [address] CBC AND AUTO DIFFon 12-03-19 24 ABSOLUTE BASOPHIL 0.1 X10E9/L Normal 0.0-0.2 [facility] Comment on above: Performed By: #### C BCA, CMP, ####[facility] ([id number])[address], [address], [place] [address] ABSOLUTE NEUTROPHIL 8.0 X10E9/L High 1.5-6.6 [facility] Comment on above: Performed By: #### C MONSE, CMP, ####[facility] ([id number])[address], [address] [address] Basophils/100 WBC (Bld) 0.9 % Normal [facility] Comment on above: Performed By: #### Dru SHEA, CMP, ####[facility] ([id number])[address] [address] Eosinophils (Bld) [#/Vol] 0.1 10*3/uL Normal 0.0-0.4 [facility] Comment on above: Performed By: #### Dru HSEA, [facility], ####[facility] ([id number])[address], [address], [place] [address] Eosinophils/100 WBC (Bld) 1.0 % Normal [facility] Comment on above: Performed By: #### Dru SHEA, [facility], ####[facility] ([id number])[address] [address] [address] Erythrocyte distribution width (RBC) [Ratio] 19.7 % High 11.5-15.0 [facility] Comment on above: Performed By: #### C MONSE, CMP, ####[facility] ([id number])[address], [address], [place] [address] Hematocrit (Bld) [Volume fraction] 26.7 % Low 35-47 [facility] Comment on above: Performed By: #### Dru SHEA, CMP, ####[facility] ([id number])[address], [address], [place] [address] Hemoglobin (Bld) [Mass/Vol] 9.0 g/dL Low 11.7-15.5 [facility] Comment on above: Performed By: #### Dru SHEA CMP, ####[facility] ([id number])[address] [address] [place] [address] Lymphocytes (Bld) [#/Vol] 1.1 10*3/uL Normal 1.0-3.5 [facility] Comment on above: Performed By: #### Dru SHEA CMP, ####[facility] ([id number])[address], [address] [address] Lymphocytes/100 WBC (Bld) 10.5 % Normal [facility] Comment on above: Performed By: #### Dru SHEA CMP, ####[facility] ([id number])[address], [address] [place] [address] MCH (RBC) [Entitic mass] 30.0 pg Normal 27-34 [facility] Comment on above: Performed By: #### Dru SHEA CMP, ####[facility] ([id number])[address] [address] MCHC (RBC) [Mass/Vol] 33.6 g/dL Normal 32-36 [facility] Comment on above: Performed By: #### Dru SHEA CMP, ####[facility] ([id number])[address] [address] MCV (RBC) [Entitic vol] 89 fL Normal 80-100 [facility] Comment on above: Performed By: #### Dru SHEA CMP, ####[facility] ([id number])[address], [address] [place] [address] Monocytes (Bld) [#/Vol] 1.0 10*3/uL High 0-0.9 [facility] Comment on above: Performed By: #### C MONSE CMP, ####[facility] ([id number])[address], [address], [place] [address] Monocytes/100 WBC (Bld) 10.1 % Normal [facility] Comment on above: Performed By: #### Dru SHEA CMP, ####[facility] ([id number])[address], [address], [place] [address] Neutrophils/100 WBC (Bld) 77.5 % Normal [facility] Comment on above: Performed By: #### Dru SHEA CMP, ####[facility] ([id number])[address], [place] [address] Platelet mean volume (Bld) [Entitic vol] 10.5 fL Normal 7-12 [facility] Comment on above: Performed By: #### Dru SHEA CMP, ####[facility] ([id number])[address], [address], [place] [address] Platelets (Bld) [#/Vol] 129 10*3/uL Low 150-450 [facility] Comment on above: Performed By: #### Dru SHEA CMP, ####[facility] ([id number])[address], [address], [place] [address] RBC COUNT 2.99 X10E12/L Low 3.80-5.20 [facility] Comment on above: Performed By: #### Dru SHEA, CMP, ####[facility] ([id number])[address], [address], [place] [address] WBC (Bld) [#/Vol] 10.3 10*3/uL Normal 4.0-11.0 [facility] Comment on above: Performed By: #### C BCA, CMP, ####[facility] ([id number])[address], [address], [place] [address] COMPREHENSIVE METABOLIC PANE Elver 12-03-2023 Albumin [Mass/Vol] 3.1 g/dL Low 3.2-5.3 [facility] Comment on above: Performed By: #### C BCA, CMP, ####[facility] ([id number])[address], [address], [place] [address] ALP [Catalytic activity/Vol] 149 U/L High 39-130 [facility] Comment on above: Performed By: #### C BCA, CMP, ####[facility] ([id number])[address], [place] [address] ALT [Catalytic activity/Vol] 31 U/L Normal 0-31 [facility] Comment on above: Performed By: #### C BCA, CMP, ####[facility] ([id number])[address], [place] [address] Anion gap [Moles/Vol] 11 mmol/L Normal 5-15 [facility] Comment on above: Performed By: #### C BCA, CMP, ####[facility] ([id number])[address], [address], [place] [address] AST [Catalytic activity/Vol] 22 U/L Normal 0-41 [facility] Comment on above: Performed By: #### C BCA, CMP, ####[facility] ([id number])[address], [address], [place] [address] Bilirubin [Mass/Vol] 0.6 mg/dL Normal 0.3-1.2 [facility] Comment on above: Performed By: #### C BCA, CMP, ####[facility] ([id number])[address], [address], [place] [address] Calcium [Mass/Vol] 8.1 mg/dL Low 8.5-10.5 [facility] Comment on above: Performed By: #### C MONSE CMP, [address]96[address]-7 ####[facility] ([id number])[address] [address] Chloride [Moles/Vol] 102 mmol/L Normal 98-109 [facility] Comment on above: Performed By: #### C TOO SHEA, ####[facility] ([id number])[address], [address], [place] [address] CO2 [Moles/Vol] 22 mmol/L Normal 22-32 [facility] Comment on above: Performed By: #### C TOO SHEA, ####[facility] ([id number])[address], [place] [address] Creatinine [Mass/Vol] 1.15 mg/dL High 0.40-1.00 [facility] Comment on above: Result Comment: METH OD TRACEABLE TO IDMS STANDARD Performed By: #### C TOO SHEA, ####[facility] ([id number])[address] [address] GFR/1.73 sq M.predicted among non-blacks MDRD (S/P/Bld) [Vol rate/Area] 53 mL/min/{1.73_m2} Low >59 [facility] Comment on above: Result Comment: Repo rted eGFR is based on theCKD-EPI 2020 equation that doesnot use a race coefficient. Performed By: #### C BCA, CMP, ####[facility] ([id number])[address], [place] [address] Glucose [Mass/Vol] 224 mg/dL High 65-99 [facility] Comment on above: Performed By: #### C BCA, CMP, 33961-5 ####[facility] ([id number])[address], [address] [address] Potassium [Moles/Vol] 3.6 mmol/L Normal 3.5-5.0 [facility] Comment on above: Performed By: #### C BCA, CMP, ####[facility] ([id number])[address] [address] Protein [Mass/Vol] 6.7 g/dL Normal 6.0-8.0 [facility] Comment on above: Performed By: #### C BCA, CMP, ####[facility] ([id number])[address], [address] [address] Sodium [Moles/Vol] 135 mmol/L Normal 134-146 [facility] Comment on above: Performed By: #### C BCA, CMP, ####[facility] ([id number])[address] [address] Urea nitrogen [Mass/Vol] 49 mg/dL High 5-27 [facility] Comment on above: Performed By: #### C BCA, CMP, ####[facility] ([id number])[address] [address] Calcium.ionized (Bld) [Mass/ Vol]on 12-03-2023 IONIZED CALCIUM 4.5 mg/dL Normal 4.5-5.3 [facility] Comment on above: Performed By: #### 3 8230-9, 09790-5 ####[facility] ([id number])[address], [address] [address] Glucose Glucometer (BldC) [M ass/Vol]on 12-03-2023 Glucose [Mass/Vol] 291 mg/dL High 65-99 [facility] Glucose [Mass/Vol] 289 mg/dL High 65-99 [facility] Glucose [Mass/Vol] 347 mg/dL High 65-99 [facility] Glucose [Mass/Vol] 251 mg/dL High 65-99 [facility] Glucose [Mass/Vol] 295 mg/dL High 65-99 [facility] MAGNESIUMon 12-03-2023 Magnesium [Mass/Vol] 1.8 mg/dL Normal 1.8-2.6 [facility] Comment on above: Performed By: #### C MONSE, CMP, 45210-4 ####[facility] ([id number])[address], [address] [place] [address] Magnesium Ionized ISE (Bld) [Moles/Vol]on 12-03-2023 Magnesium [Moles/Vol] 0.56 mmol/L Normal 0.45-0.74 [facility] [place] Comment on above: Result Comment: NEW REFERENCE RANGE Performed By: #### 3 8230-9, 76550-8 ####[facility] ([id number])[address], [address] [place] [address] POTASSIUMon 12-03-2023 Potassium [Moles/Vol] 3.9 mmol/L Normal 3.5-5.0 [facility] Comment on above: Performed By: #### 2 823-3 ####[facility] ([id number])[address], [address] [place] [address] CBC AND AUTO DIFFon 12-02-19 24 ABSOLUTE BASOPHIL 0.1 X10E9/L Normal 0.0-0.2 [facility] Comment on above: Performed By: #### C BCA, CMP, 35409-6 ####[facility] ([id number])[address], [address] [place] [address] ABSOLUTE NEUTROPHIL 7.9 X10E9/L High 1.5-6.6 [facility] Comment on above: Performed By: #### C MONSE, CMP, ####[facility] ([id number])[address], [address], [place] [address] Basophils/100 WBC (Bld) 0.6 % Normal [facility] Comment on above: Performed By: #### C MONSE, CMP, ####[facility] ([id number])[address], [address], [place] [address] Eosinophils (Bld) [#/Vol] 0.1 10*3/uL Normal 0.0-0.4 [facility] Comment on above: Performed By: #### Dru SHEA, CMP, ####[facility] ([id number])[address], [address], [place] [address] Eosinophils/100 WBC (Bld) 1.0 % Normal [facility] Comment on above: Performed By: #### C MONSE, CMP, ####[facility] ([id number])[address], [address], [place] [address] Erythrocyte distribution width (RBC) [Ratio] 19.2 % High 11.5-15.0 [facility] Comment on above: Performed By: #### C MONSE, CMP, ####[facility] ([id number])[address] [address], [place] [address] Hematocrit (Bld) [Volume fraction] 26.1 % Low 35-47 [facility] Comment on above: Performed By: #### C MONSE, CMP, ####[facility] ([id number])[address] [address] [place] [address] Hemoglobin (Bld) [Mass/Vol] 8.7 g/dL Low 11.7-15.5 [facility] Comment on above: Performed By: #### C MONSE, CMP, ####[facility] ([id number])[address], [address], [place] [address] Lymphocytes (Bld) [#/Vol] 0.9 10*3/uL Low 1.0-3.5 [facility] Comment on above: Performed By: #### C MONSE, CMP, ####[facility] ([id number])[address], [address], [place] [address] Lymphocytes/100 WBC (Bld) 9.0 % Normal [facility] Comment on above: Performed By: #### Dru SHEA, CMP, ####[facility] ([id number])[address] [address] [place] [address] MCH (RBC) [Entitic mass] 30.0 pg Normal 27-34 [facility] Comment on above: Performed By: #### Dru SHEA, [facility], ####[facility] ([id number])[address] [address], [place] [address] MCHC (RBC) [Mass/Vol] 33.5 g/dL Normal 32-36 [facility] Comment on above: Performed By: #### Dru SHEA, CMP, ####[facility] ([id number])[address] [address] [place] [address] MCV (RBC) [Entitic vol] 90 fL Normal 80-100 [facility] Comment on above: Performed By: #### C BCA, CMP, ####[facility] ([id number])[address] [address] [place] [address] Monocytes (Bld) [#/Vol] 0.8 10*3/uL Normal 0-0.9 [facility] Comment on above: Performed By: #### Dru BCA, CMP, ####[facility] ([id number])[address], [address], [place] [address] Monocytes/100 WBC (Bld) 8.5 % Normal [facility] Comment on above: Performed By: #### Dru SHEA CMP, 14539-3 ####[facility] ([id number])[address], [address], [place] [address] Neutrophils/100 WBC (Bld) 80.9 % Normal [facility] Comment on above: Performed By: #### C MONSE CMP, ####[facility] ([id number])[address], [address], [place] [address] Platelet mean volume (Bld) [Entitic vol] 10.2 fL Normal 7-12 [facility] Comment on above: Performed By: #### Dru SHEA CMP, ####[facility] ([id number])[address], [address], [place] [address] Platelets (Bld) [#/Vol] 128 10*3/uL Low 150-450 [facility] Comment on above: Performed By: #### Dru SHEA CMP, ####[facility] ([id number])[address], [address], [place] [address] RBC COUNT 2.91 X10E12/L Low 3.80-5.20 [facility] Comment on above: Performed By: #### Dru SHEA CMP, ####[facility] ([id number])[address], [address], [place] [address] WBC (Bld) [#/Vol] 9.7 10*3/uL Normal 4.0-11.0 [facility] Comment on above: Performed By: #### Dru SHEA, CMP, ####[facility] ([id number])[address], [address], [place] [address] COMPREHENSIVE METABOLIC PANE [place] 12-02-2023 Albumin [Mass/Vol] 3.0 g/dL Low 3.2-5.3 [facility] Comment on above: Performed By: #### C MONSE CMP, ####[facility] ([id number])[address], [address], [place] [address] ALP [Catalytic activity/Vol] 154 U/L High 39-130 [facility] Comment on above: Performed By: #### C MONSE, CMP, ####[facility] ([id number])[address], [address], [place] [address] ALT [Catalytic activity/Vol] 38 U/L High 0-31 [facility] Comment on above: Performed By: #### C MONSE, CMP, ####[facility] ([id number])[address], [address], [place] [address] Anion gap [Moles/Vol] 11 mmol/L Normal 5-15 [facility] Comment on above: Performed By: #### C MONSE, CMP, ####[facility] ([id number])[address], [address], [place] [address] AST [Catalytic activity/Vol] 38 U/L Normal 0-41 [facility] Comment on above: Performed By: #### C MONSE CMP, ####[facility] ([id number])[address], [address], [place] [address] Bilirubin [Mass/Vol] 0.7 mg/dL Normal 0.3-1.2 [facility] Comment on above: Performed By: #### C MONSE, CMP, ####[facility] ([id number])[address], [address], [place] [address] Calcium [Mass/Vol] 7.6 mg/dL Low 8.5-10.5 [facility] Comment on above: Performed By: #### C MONSE [facility], ####[facility] ([id number])[address], [address] [address] Chloride [Moles/Vol] 102 mmol/L Normal 98-109 [facility] [place] Comment on above: Performed By: #### C BCA, [facility], ####[facility] ([id number])[address], [address], [place] [address] CO2 [Moles/Vol] 24 mmol/L Normal 22-32 [facility] Comment on above: Performed By: #### C MONSE [facility], ####[facility] ([id number])[address], [address] [place] [address] Creatinine [Mass/Vol] 1.18 mg/dL High 0.40-1.00 [facility] Comment on above: Result Comment: METH OD TRACEABLE TO IDMS STANDARD Performed By: #### C MONSE [facility], ####[facility] ([id number])[address] [address] [place] [address] GFR/1.73 sq M.predicted among non-blacks MDRD (S/P/Bld) [Vol rate/Area] 51 mL/min/{1.73_m2} Low >59 [facility] Comment on above: Result Comment: Repo rted eGFR is based on theCKD-EPI 2020 equation that doesnot use a race coefficient. Performed By: #### C BCA, [facility], ####[facility] ([id number])[address], [address] [address] Glucose [Mass/Vol] 223 mg/dL High 65-99 [facility] Comment on above: Performed By: #### C BCA, CMP, ####[facility] ([id number])[address] [address] [address] Potassium [Moles/Vol] 3.5 mmol/L Normal 3.5-5.0 [facility] Comment on above: Performed By: #### C TOO SHEA, ####[facility] ([id number])[address], [address], [place] [address] Protein [Mass/Vol] 6.4 g/dL Normal 6.0-8.0 [facility] Comment on above: Performed By: #### C TOO SHEA, ####[facility] ([id number])[address], [address], [place] [address] Sodium [Moles/Vol] 137 mmol/L Normal 134-146 [facility] Comment on above: Performed By: #### Dru SHEA CMP, ####[facility] ([id number])[address], [address] [place] [address] Urea nitrogen [Mass/Vol] 38 mg/dL High 5-27 [facility] Comment on above: Performed By: #### Dru SHEA CMP, ####[facility] ([id number])[address], [address] [place] [address] Glucose Glucometer (BldC) [M ass/Vol]on 12-02-2023 Glucose [Mass/Vol] 297 mg/dL High 65-99 [facility] Glucose [Mass/Vol] 313 mg/dL High 65-99 [facility] Glucose [Mass/Vol] 263 mg/dL High 65-99 [facility] Glucose [Mass/Vol] 235 mg/dL High 65-99 [facility] Glucose [Mass/Vol] 193 mg/dL High 65-99 [facility] MAGNESIUMon 12-02-2023 Magnesium [Mass/Vol] 1.9 mg/dL Normal 1.8-2.6 [facility] [place] Comment on above: Performed By: #### C BCA, CMP, ####[facility] ([id number])[address], [address] [place] [address] Magnesium Ionized ISE (Bld) [Moles/Vol]on 12-02-2023 Magnesium [Moles/Vol] 0.60 mmol/L Normal 0.45-0.74 [facility] [place] Comment on above: Result Comment: NEW REFERENCE RANGE Performed By: #### 7 3572-0 ####[facility] ([id number])[address], [address] [place] [address] CBC AND AUTO DIFFon 12-01-19 ABSOLUTE BASOPHIL 0.1 X10E9/L Normal 0.0-0.2 [facility] Comment on above: Performed By: #### C MONSE, CMP, 63964-6 ####[facility] ([id number])[address] [address] [place] [address] ABSOLUTE NEUTROPHIL 7.8 X10E9/L High 1.5-6.6 [facility] Comment on above: Performed By: #### C BCA, CMP, ####[facility] ([id number])[address] [address] [place] [address] Basophils/100 WBC (Bld) 0.7 % Normal [facility] Comment on above: Performed By: #### C BCA, CMP, ####[facility] ([id number])[address] [address] [place] [address] Eosinophils (Bld) [#/Vol] 0.1 10*3/uL Normal 0.0-0.4 [facility] Comment on above: Performed By: #### C BCA, CMP, ####[facility] ([id number])[address] [address] [place] [address] Eosinophils/100 WBC (Bld) 1.1 % Normal [facility] Comment on above: Performed By: #### C BCA, CMP, ####[facility] ([id number])[address], [address], [place] [address] Erythrocyte distribution width (RBC) [Ratio] 19.6 % High 11.5-15.0 [facility] Comment on above: Performed By: #### C MONSE, CMP, ####[facility] ([id number])[address], [address], [place] [address] Hematocrit (Bld) [Volume fraction] 25.1 % Low 35-47 [facility] Comment on above: Performed By: #### C MONSE, CMP, ####[facility] ([id number])[address], [address], [place] [address] Hemoglobin (Bld) [Mass/Vol] 8.6 g/dL Low 11.7-15.5 [facility] Comment on above: Performed By: #### Dru SHEA, CMP, ####[facility] ([id number])[address] [address], [place] [address] Lymphocytes (Bld) [#/Vol] 1.3 10*3/uL Normal 1.0-3.5 [facility] Comment on above: Performed By: #### Dru SHEA, CMP, ####[facility] ([id number])[address] [address] [place] [address] Lymphocytes/100 WBC (Bld) 12.6 % Normal [facility] Comment on above: Performed By: #### C MONSE, CMP, ####[facility] ([id number])[address] [address] MCH (RBC) [Entitic mass] 30.2 pg Normal 27-34 [facility] Comment on above: Performed By: #### Dru SHEA, CMP, ####[facility] ([id number])[address], [address], [place] [address] MCHC (RBC) [Mass/Vol] 34.0 g/dL Normal 32-36 [facility] Comment on above: Performed By: #### Dru SHEA, CMP, ####[facility] ([id number])[address], [address], [place] [address] MCV (RBC) [Entitic vol] 89 fL Normal 80-100 [facility] Comment on above: Performed By: #### Dru SHEA, CMP, ####[facility] ([id number])[address], [address], [place] [address] Monocytes (Bld) [#/Vol] 1.0 10*3/uL High 0-0.9 [facility] Comment on above: Performed By: #### Dru SHEA, CMP, ####[facility] ([id number])[address], [place] [address] Monocytes/100 WBC (Bld) 9.5 % Normal [facility] Comment on above: Performed By: #### Dru SHEA, CMP, ####[facility] ([id number])[address], [address], [place] [address] Neutrophils/100 WBC (Bld) 76.1 % Normal [facility] Comment on above: Performed By: #### Dru SHEA, CMP, ####[facility] ([id number])[address], [place] [address] Platelet mean volume (Bld) [Entitic vol] 10.5 fL Normal 7-12 [facility] Comment on above: Performed By: #### Dru BCA, CMP, ####[facility] ([id number])[address], [address], [place] [address] Platelets (Bld) [#/Vol] 121 10*3/uL Low 150-450 [facility] Comment on above: Performed By: #### C TOO SHEA, 65878-0 ####[facility] ([id number])[address], [address] [address] RBC COUNT 2.83 X10E12/L Low 3.80-5.20 [facility] Comment on above: Performed By: #### C MONSE CMP, ####[facility] ([id number])[address], [address], [place] [address] WBC (Bld) [#/Vol] 10.2 10*3/uL Normal 4.0-11.0 [facility] Comment on above: Performed By: #### Dru SHEA CMP, 67855-7 ####[facility] ([id number])[address], [place] [address] COMPREHENSIVE METABOLIC PANE [place] 12-01-2023 Albumin [Mass/Vol] 3.0 g/dL Low 3.2-5.3 [facility] Comment on above: Performed By: #### C MOSNE CMP, 09361-8 ####[facility] ([id number])[address], [place] [address] ALP [Catalytic activity/Vol] 153 U/L High 39-130 [facility] Comment on above: Performed By: #### C MONSE, CMP, 07131-5 ####[facility] ([id number])[address], [address], [place] [address] ALT [Catalytic activity/Vol] 36 U/L High 0-31 [facility] Comment on above: Performed By: #### C BCA, CMP, 73334-8 ####[facility] ([id number])[address], [address], [place] [address] Anion gap [Moles/Vol] 12 mmol/L Normal 5-15 [facility] Comment on above: Performed By: #### C BCA, CMP, ####[facility] ([id number])[address], [place] [address] AST [Catalytic activity/Vol] 35 U/L Normal 0-41 [facility] Comment on above: Performed By: #### C BCA, CMP, ####[facility] ([id number])[address], [address], [place] [address] Bilirubin [Mass/Vol] 0.6 mg/dL Normal 0.3-1.2 [facility] Comment on above: Performed By: #### C BCA, CMP, ####[facility] ([id number])[address], [address], [place] [address] Calcium [Mass/Vol] 8.1 mg/dL Low 8.5-10.5 [facility] Comment on above: Performed By: #### C BCA, CMP, ####[facility] ([id number])[address], [address], [place] [address] Chloride [Moles/Vol] 101 mmol/L Normal 98-109 [facility] Comment on above: Performed By: #### C BCA, CMP, ####[facility] ([id number])[address], [address], [place] [address] CO2 [Moles/Vol] 23 mmol/L Normal 22-32 [facility] Comment on above: Performed By: #### C BCA, CMP, ####[facility] ([id number])[address], [place] [address] Creatinine [Mass/Vol] 1.14 mg/dL High 0.40-1.00 [facility] Comment on above: Result Comment: METH OD TRACEABLE TO IDMS STANDARD Performed By: #### C MONSE [facility], ####[facility] ([id number])[address] [address] [address] GFR/1.73 sq M.predicted among non-blacks MDRD (S/P/Bld) [Vol rate/Area] 53 mL/min/{1.73_m2} Low >59 [facility] Comment on above: Result Comment: Repo rted eGFR is based on theCKD-EPI 2020 equation that doesnot use a race coefficient. Performed By: #### C MONSE [facility], ####[facility] ([id number])[address] [address] [place] [address] Glucose [Mass/Vol] 151 mg/dL High 65-99 [facility] Comment on above: Performed By: #### C MONSE [facility], ####[facility] ([id number])[address] [address] [place] [address] Potassium [Moles/Vol] 3.5 mmol/L Normal 3.5-5.0 [facility] Comment on above: Performed By: #### C MONSE [facility], ####[facility] ([id number])[address] [address] [place] [address] Protein [Mass/Vol] 6.4 g/dL Normal 6.0-8.0 [facility] Comment on above: Performed By: #### C MONSE [facility], ####[facility] ([id number])[address] [address] [address] Sodium [Moles/Vol] 136 mmol/L Normal 134-146 [facility] Comment on above: Performed By: #### C MONSE [facility], ####[facility] ([id number])[address] [address] [place] [address] Urea nitrogen [Mass/Vol] 50 mg/dL High 5-27 [facility] Comment on above: Performed By: #### C BCA, CMP, ####[facility] ([id number])[address] [address] Glucose Glucometer (BldC) [M ass/Vol]on 12-01-2023 Glucose [Mass/Vol] 193 mg/dL High 65-99 [facility] Glucose [Mass/Vol] 182 mg/dL High 65-99 [facility] Glucose [Mass/Vol] 154 mg/dL High 65-99 [facility] Glucose [Mass/Vol] 204 mg/dL High 65-99 [facility] HGB AND HCTon 12-01-2023 Hematocrit (Bld) [Volume fraction] 25.7 % Low 35-47 [facility] Comment on above: Performed By: #### H H ####[facility] ([id number])[address], [address] [place] [address] Hemoglobin (Bld) [Mass/Vol] 8.7 g/dL Low 11.7-15.5 [facility] Comment on above: Performed By: #### H H ####[facility] ([id number])[address] [place] [address] MAGNESIUMon 12-01-2023 Magnesium [Mass/Vol] 2.3 mg/dL Normal 1.8-2.6 [facility] Comment on above: Performed By: #### C BCA, CMP, ####[facility] ([id number])[address], [address] [place] [address] CBC AND AUTO DIFFon 11-30-19 24 ABSOLUTE BASOPHIL 0.1 X10E9/L Normal 0.0-0.2 [facility] Comment on above: Performed By: #### C BCA, CMP, , 32758-4 ####[facility] ([id number])[address], [place] [address] ABSOLUTE NEUTROPHIL 9.1 X10E9/L High 1.5-6.6 [facility] Comment on above: Performed By: #### C BCA, CMP, 05999-9, 08534-5 ####[facility] ([id number])[address], [place] [address] Basophils/100 WBC (Bld) 0.9 % Normal [facility] Comment on above: Performed By: #### C BCA, CMP, , 09228-3 ####[facility] ([id number])[address], [place] [address] Eosinophils (Bld) [#/Vol] 0.1 10*3/uL Normal 0.0-0.4 [facility] Comment on above: Performed By: #### C BCA, CMP, , 22906-8 ####[facility] ([id number])[address], [place] [address] Eosinophils/100 WBC (Bld) 0.8 % Normal [facility] Comment on above: Performed By: #### C BCA, CMP, , 44458-4 ####[facility] ([id number])[address], [place] [address] Erythrocyte distribution width (RBC) [Ratio] 19.3 % High 11.5-15.0 [facility] Comment on above: Performed By: #### C BCA, CMP, , 09609-9 ####[facility] ([id number])[address], [address], [place] [address] Hematocrit (Bld) [Volume fraction] 24.4 % Low 35-47 [facility] Comment on above: Performed By: #### C BCA, CMP, , 29837-0 ####[facility] ([id number])[address], [place] [address] Hemoglobin (Bld) [Mass/Vol] 8.2 g/dL Low 11.7-15.5 [facility] Comment on above: Performed By: #### C BCA, CMP, , 39526-4 ####[facility] ([id number])[address], [address], [place] [address] Lymphocytes (Bld) [#/Vol] 1.3 10*3/uL Normal 1.0-3.5 [facility] Comment on above: Performed By: #### C BCA, CMP, , 58515-3 ####[facility] ([id number])[address], [address], [place] [address] Lymphocytes/100 WBC (Bld) 11.3 % Normal [facility] Comment on above: Performed By: #### C BCA, CMP, , 04749-0 ####[facility] ([id number])[address], [address] [address] MCH (RBC) [Entitic mass] 30.0 pg Normal 27-34 [facility] Comment on above: Performed By: #### C BCA, CMP, , 81649-4 ####[facility] ([id number])[address], [address] [address] MCHC (RBC) [Mass/Vol] 33.7 g/dL Normal 32-36 [facility] Comment on above: Performed By: #### C BCA, CMP, , 67478-1 ####[facility] ([id number])[address], [address] [address] MCV (RBC) [Entitic vol] 89 fL Normal 80-100 [facility] Comment on above: Performed By: #### C BCA, CMP, , 15036-5 ####[facility] ([id number])[address], [address], [place] [address] Monocytes (Bld) [#/Vol] 1.0 10*3/uL High 0-0.9 [facility] Comment on above: Performed By: #### C BCA, CMP, , 45628-8 ####[facility] ([id number])[address], [address], [place] [address] Monocytes/100 WBC (Bld) 8.4 % Normal [facility] Comment on above: Performed By: #### C BCA, CMP, , 61702-6 ####[facility] ([id number])[address], [address], [place] [address] Neutrophils/100 WBC (Bld) 78.6 % Normal [facility] Comment on above: Performed By: #### C BCA, CMP, , 33111-2 ####[facility] ([id number])[address], [address], [place] [address] Platelet mean volume (Bld) [Entitic vol] 10.6 fL Normal 7-12 [facility] Comment on above: Performed By: #### C BCA, CMP, , 37125-8 ####[facility] ([id number])[address], [address], [place] [address] Platelets (Bld) [#/Vol] 114 10*3/uL Low 150-450 [facility] Comment on above: Performed By: #### C BCA, CMP, , 74126-2 ####[facility] ([id number])[address], [address], [place] [address] RBC COUNT 2.74 X10E12/L Low 3.80-5.20 [facility] Comment on above: Performed By: #### C BCA, CMP, , 29429-8 ####[facility] ([id number])[address], [address], [place] [address] WBC (Bld) [#/Vol] 11.6 10*3/uL High 4.0-11.0 [facility] Comment on above: Performed By: #### C BCA, CMP, 83023-1, 95748-1 ####[facility] ([id number])[address], [address] [address] COMPREHENSIVE METABOLIC PANE [place] 11-30-2023 Albumin [Mass/Vol] 3.0 g/dL Low 3.2-5.3 [facility] Comment on above: Performed By: #### C BCA, CMP, , 28910-8 ####[facility] ([id number])[address], [address], [place] [address] ALP [Catalytic activity/Vol] 133 U/L High 39-130 [facility] Comment on above: Performed By: #### C BCA, CMP, 18246-3, 25976-4 ####[facility] ([id number])[address], [address], [place] [address] ALT [Catalytic activity/Vol] 31 U/L Normal 0-31 [facility] Comment on above: Performed By: #### C BCA, CMP, 48609-4, 09061-0 ####[facility] ([id number])[address], [address], [place] [address] Anion gap [Moles/Vol] 10 mmol/L Normal 5-15 [facility] Comment on above: Performed By: #### C BCA, CMP, , 65762-7 ####[facility] ([id number])[address], [address] [address] AST [Catalytic activity/Vol] 39 U/L Normal 0-41 [facility] Comment on above: Performed By: #### C BCA, CMP, , 02747-7 ####[facility] ([id number])[address], [address], [place] [address] Bilirubin [Mass/Vol] 0.6 mg/dL Normal 0.3-1.2 [facility] Comment on above: Performed By: #### C BCA, CMP, , 23992-2 ####[facility] ([id number])[address], [address], [place] [address] Calcium [Mass/Vol] 7.5 mg/dL Low 8.5-10.5 [facility] Comment on above: Performed By: #### C BCA, CMP, , 19940-9 ####[facility] ([id number])[address], [address], [place] [address] Chloride [Moles/Vol] 102 mmol/L Normal 98-109 [facility] Comment on above: Performed By: #### C BCA, CMP, , 44577-1 ####[facility] ([id number])[address] [address], [place] [address] CO2 [Moles/Vol] 23 mmol/L Normal 22-32 [facility] Comment on above: Performed By: #### C BCA, CMP, , 75728-3 ####[facility] ([id number])[address] [address], [place] [address] Creatinine [Mass/Vol] 1.19 mg/dL High 0.40-1.00 [facility] Comment on above: Result Comment: METH OD TRACEABLE TO IDMS STANDARD Performed By: #### C BCA, CMP, , 71584-6 ####[facility] ([id number])[address], [address], [place] [address] GFR/1.73 sq M.predicted among non-blacks MDRD (S/P/Bld) [Vol rate/Area] 50 mL/min/{1.73_m2} Low >59 [facility] Comment on above: Result Comment: Repo rted eGFR is based on theCKD-EPI 2020 equation that doesnot use a race coefficient. Performed By: #### C BCA, CMP, , 98216-1 ####[facility] ([id number])[address], [address], [place] [address] Glucose [Mass/Vol] 173 mg/dL High 65-99 [facility] Comment on above: Performed By: #### C BCA, CMP, , 79058-9 ####[facility] ([id number])[address], [address], [place] [address] Potassium [Moles/Vol] 3.5 mmol/L Normal 3.5-5.0 [facility] Comment on above: Performed By: #### C BCA, CMP, , 93312-0 ####[facility] ([id number])[address], [address], [place] [address] Protein [Mass/Vol] 5.8 g/dL Low 6.0-8.0 [facility] Comment on above: Performed By: #### C BCA, CMP, , 47109-6 ####[facility] ([id number])[address], [address], [place] [address] Sodium [Moles/Vol] 135 mmol/L Normal 134-146 [facility] Comment on above: Performed By: #### C BCA, CMP, , 45543-6 ####[facility] ([id number])[address], [address], [place] [address] Urea nitrogen [Mass/Vol] 55 mg/dL High 5-27 [facility] Comment on above: Performed By: #### C BCA, CMP, , 48271-5 ####[facility] ([id number])[address] [address] [place] [address] Calcium.ionized (Bld) [Mass/ Vol]on 11-30-2023 IONIZED CALCIUM 4.3 mg/dL Low 4.5-5.3 [facility] Comment on above: Performed By: #### 3 8230-9 ####[facility] ([id number])[address] [address] FL SWALLOW MOTILITY FUNCTION on 11-30-2023 FL SWALLOW MOTILITY FUNCTION Normal [facility] Glucose Glucometer (dC) [M ass/Vol]on 11-30-2023 Glucose [Mass/Vol] 177 mg/dL High 65-99 [facility] Glucose [Mass/Vol] 262 mg/dL High 65-99 [facility] Glucose [Mass/Vol] 182 mg/dL High 65-99 [facility] Glucose [Mass/Vol] 204 mg/dL High 65-99 [facility] MAGNESIUMon 11-30-2023 Magnesium [Mass/Vol] 1.9 mg/dL Normal 1.8-2.6 [facility] Comment on above: Performed By: #### C BCA, CMP, , 15048-9 ####[facility] ([id number])[address] [address] MRSA PCR NASALon 11-30-2023 MRSA DNA CHELLY+probe Ql (Unsp spec) Negative Normal NEG [facility] Comment on above: Performed By: #### 3 5492-8 ####[facility] ([id number])[address] [address] Natriuretic peptide B [Mass/ Vol]on 11-30-2023 Natriuretic peptide B (Bld) [Mass/Vol] 434 pg/mL High <100.0 [facility] Comment on above: Performed By: #### C BCA, CMP, , 69561-6 ####[facility] ([id number])[address], [address] [address] XR CHEST 1 VWon 11-30-2023 XR CHEST 1 VW Normal [facility] CBC AND AUTO DIFFon 11-29-19 24 ABSOLUTE BASOPHIL 0.0 X10E9/L Normal 0.0-0.2 [facility] Comment on above: Performed By: #### C BCA, CMP, , 56418-4 ####[facility] ([id number])[address], [address], [place] [address] ABSOLUTE NEUTROPHIL 11.9 X10E9/L High 1.5-6.6 [facility] Comment on above: Performed By: #### C BCA, CMP, , 04406-3 ####[facility] ([id number])[address], [address], [place] [address] Basophils/100 WBC (Bld) 0.3 % Normal [facility] Comment on above: Performed By: #### Dru BCA, CMP, , 63741-1 ####[facility] ([id number])[address], [address] [place] [address] Eosinophils (Bld) [#/Vol] 0.0 10*3/uL Normal 0.0-0.4 [facility] Comment on above: Performed By: #### C BCA, CMP, , 66367-6 ####[facility] ([id number])[address], [address], [place] [address] Eosinophils/100 WBC (Bld) 0.0 % Normal [facility] Comment on above: Performed By: #### C BCA, CMP, , 91569-2 ####[facility] ([id number])[address], [address] [place] [address], [place] [address] Erythrocyte distribution width (RBC) [Ratio] 19.2 % High 11.5-15.0 [facility] Comment on above: Performed By: #### C MONSE CMP, 63080-8, 43764-2 ####[facility] ([id number])[address] [address] [place] [address] Hematocrit (Bld) [Volume fraction] 25.0 % Low 35-47 [facility] Comment on above: Performed By: #### Dru SHEA, CMP, 88085-8, 61585-9 ####[facility] ([id number])[address] [address] Hemoglobin (Bld) [Mass/Vol] 8.3 g/dL Low 11.7-15.5 [facility] Comment on above: Performed By: #### Dru SHEA, CMP, 23283-8, 47360-6 ####[facility] ([id number])[address] [address] Lymphocytes (Bld) [#/Vol] 1.0 10*3/uL Normal 1.0-3.5 [facility] Comment on above: Performed By: #### Dru SHEA, CMP, , 39268-6 ####[facility] ([id number])[address] [address] Lymphocytes/100 WBC (Bld) 7.6 % Normal [facility] Comment on above: Performed By: #### C BCA, CMP, 39482-3, 03165-4 ####[facility] ([id number])[address] [address] MCH (RBC) [Entitic mass] 29.6 pg Normal 27-34 [facility] Comment on above: Performed By: #### Dru BCA, CMP, 61047-0, 56738-0 ####[facility] ([id number])[address], [address], [place] [address] MCHC (RBC) [Mass/Vol] 33.1 g/dL Normal 32-36 [facility] Comment on above: Performed By: #### Dru BCA, CMP, 14555-8, 85583-1 ####[facility] ([id number])[address], [address], [place] [address] MCV (RBC) [Entitic vol] 89 fL Normal 80-100 [facility] Comment on above: Performed By: #### C BCA, CMP, 30189-2, 91920-7 ####[facility] ([id number])[address], [address] [place] [address] Monocytes (Bld) [#/Vol] 0.8 10*3/uL Normal 0-0.9 [facility] Comment on above: Performed By: #### Dru BCA, CMP, , 08253-6 ####[facility] ([id number])[address] [address] [place] [address] Monocytes/100 WBC (Bld) 6.1 % Normal [facility] Comment on above: Performed By: #### Dru BCA, CMP, 72571-9, 83607-0 ####[facility] ([id number])[address] [address] [place] [address] Neutrophils/100 WBC (Bld) 86.0 % Normal [facility] Comment on above: Performed By: #### C BCA, CMP, 15298-0, 57495-5 ####[facility] ([id number])[address] [address] [place] [address] Platelet mean volume (Bld) [Entitic vol] 11.1 fL Normal 7-12 [facility] Comment on above: Performed By: #### Dru BCA, CMP, 85499-5, 40556-7 ####[facility] ([id number])[address], [address], [place] [address] Platelets (Bld) [#/Vol] 113 10*3/uL Low 150-450 [facility] Comment on above: Performed By: #### C BCA, CMP, 54274-6, 11289-8 ####[facility] ([id number])[address], [address], [place] [address] RBC COUNT 2.80 X10E12/L Low 3.80-5.20 [facility] Comment on above: Performed By: #### C BCA, CMP, 45391-7, 16567-1 ####[facility] ([id number])[address] [address] [place] [address] WBC (Bld) [#/Vol] 13.8 10*3/uL High 4.0-11.0 [facility] Comment on above: Performed By: #### C BCA, CMP, , 70428-9 ####[facility] ([id number])[address], [place] [address] COMPREHENSIVE METABOLIC PANE Elver 11-29-2023 Albumin [Mass/Vol] 2.9 g/dL Low 3.2-5.3 [facility] Comment on above: Performed By: #### C BCA, CMP, , 69262-8 ####[facility] ([id number])[address], [address], [place] [address] ALP [Catalytic activity/Vol] 127 U/L Normal 39-130 [facility] Comment on above: Performed By: #### C BCA, CMP, 97174-9, 50461-3 ####[facility] ([id number])[address], [address] [place] [address], [place] [address] ALT [Catalytic activity/Vol] 22 U/L Normal 0-31 [facility] Comment on above: Performed By: #### C BCA, CMP, , 06854-1 ####[facility] ([id number])[address], [address], [place] [address] Anion gap [Moles/Vol] 10 mmol/L Normal 5-15 [facility] Comment on above: Performed By: #### C BCA, CMP, , 62707-0 ####[facility] ([id number])[address], [address], [place] [address] AST [Catalytic activity/Vol] 20 U/L Normal 0-41 [facility] Comment on above: Performed By: #### C BCA, CMP, , 91613-6 ####[facility] ([id number])[address], [place] [address] Bilirubin [Mass/Vol] 0.6 mg/dL Normal 0.3-1.2 [facility] Comment on above: Performed By: #### C BCA, CMP, , 44501-0 ####[facility] ([id number])[address], [address], [place] [address] Calcium [Mass/Vol] 7.7 mg/dL Low 8.5-10.5 [facility] Comment on above: Performed By: #### C BCA, CMP, , 30676-5 ####[facility] ([id number])[address], [address], [place] [address] Chloride [Moles/Vol] 102 mmol/L Normal 98-109 [facility] Comment on above: Performed By: #### C BCA, CMP, , 70781-9 ####[facility] ([id number])[address], [address], [place] [address] CO2 [Moles/Vol] 23 mmol/L Normal 22-32 [facility] Comment on above: Performed By: #### C BCA, CMP, , 94693-4 ####[facility] ([id number])[address] [address], [place] [address] Creatinine [Mass/Vol] 1.22 mg/dL High 0.40-1.00 [facility] Comment on above: Result Comment: METH OD TRACEABLE TO IDMS STANDARD Performed By: #### C BCA CMP, , 77044-6 ####[facility] ([id number])[address] [address], [place] [address] GFR/1.73 sq M.predicted among non-blacks MDRD (S/P/Bld) [Vol rate/Area] 49 mL/min/{1.73_m2} Low >59 [facility] Comment on above: Result Comment: Repo rted eGFR is based on theCKD-EPI 2020 equation that doesnot use a race coefficient. Performed By: #### C BCA, [facility], , 97483-9 ####[facility] ([id number])[address] [address] Glucose [Mass/Vol] 231 mg/dL High 65-99 [facility] Comment on above: Performed By: #### C MONSE CMP, , 29657-8 ####[facility] ([id number])[address] [address], [place] [address] Potassium [Moles/Vol] 4.2 mmol/L Normal 3.5-5.0 [facility] Comment on above: Performed By: #### C BCA, CMP, , 04704-8 ####[facility] ([id number])[address] [address] Protein [Mass/Vol] 6.2 g/dL Normal 6.0-8.0 [facility] Comment on above: Performed By: #### C BCA CMP, , 13698-1 ####[facility] ([id number])[address], [address], [place] [address] Sodium [Moles/Vol] 135 mmol/L Normal 134-146 [facility] Comment on above: Performed By: #### C MONSE [facility], 87799-1, 26885-0 ####[facility] ([id number])[address], [address] [place] [address] Urea nitrogen [Mass/Vol] 61 mg/dL High 5-27 [facility] Comment on above: Performed By: #### Dru MONSE [facility], , 67688-5 ####[facility] ([id number])[address], [address] [place] [address] Glucose Glucometer (BldC) [M ass/Vol]on 11-29-2023 Glucose [Mass/Vol] 180 mg/dL High 65-99 [facility] Glucose [Mass/Vol] 145 mg/dL High 65-99 [facility] Glucose [Mass/Vol] 233 mg/dL High 65-99 [facility] Glucose [Mass/Vol] 354 mg/dL High 65-99 [facility] MAGNESIUMon 11-29-2023 Magnesium [Mass/Vol] 1.9 mg/dL Normal 1.8-2.6 [facility] Comment on above: Performed By: #### Dru SHEA [facility], , 73925-1 ####[facility] ([id number])[address], [address] [place] [address] Procalcitonin IA [Mass/Vol]o n 11-29-2023 PROCALCITONIN 0.52 ng/mL High <0.05 [facility] Comment on above: Result Comment: NOTE <0.50 ng/mL - Low risk of severe sepsis and/or septic shock.<2.00 ng/mL - Recommend retesting within 6-24 hours.>2.00 ng/mL - High risk of sepsis and/or septic shock. Performed By: #### C MONSE, CMP, , 30339-6 ####[facility] ([id number])[address], [address] [place] [address] XR CHEST 1 VWon 11-29-2023 XR CHEST 1 VW Normal [facility] CBC AND AUTO DIFFon 11-28-19 ABSOLUTE BASOPHIL 0.1 X10E9/L Normal 0.0-0.2 [facility] Comment on above: Performed By: #### C MONSE, CMP, ####[facility] ([id number])[address], [address] [place] [address] ABSOLUTE NEUTROPHIL 9.3 X10E9/L High 1.5-6.6 [facility] Comment on above: Performed By: #### Dru SHEA CMP, ####[facility] ([id number])[address], [address], [place] [address] Basophils/100 WBC (Bld) 0.8 % Normal [facility] Comment on above: Performed By: #### Dru SHEA, CMP, ####[facility] ([id number])[address] [address] [place] [address] Eosinophils (Bld) [#/Vol] 0.3 10*3/uL Normal 0.0-0.4 [facility] Comment on above: Performed By: #### Dru SHEA, CMP, ####[facility] ([id number])[address], [address] [place] [address] Eosinophils/100 WBC (Bld) 2.2 % Normal [facility] Comment on above: Performed By: #### Dru SHEA, CMP, ####[facility] ([id number])[address], [address] [place] [address] Erythrocyte distribution width (RBC) [Ratio] 19.9 % High 11.5-15.0 [facility] Comment on above: Performed By: #### Dru SHEA CMP, ####[facility] ([id number])[address], [address], [place] [address] Hematocrit (Bld) [Volume fraction] 27.1 % Low 35-47 [facility] Comment on above: Performed By: #### Dru SHEA CMP, ####[facility] ([id number])[address], [place] [address] Hemoglobin (Bld) [Mass/Vol] 8.9 g/dL Low 11.7-15.5 [facility] Comment on above: Performed By: #### Dru SHEA CMP, ####[facility] ([id number])[address], [place] [address] Lymphocytes (Bld) [#/Vol] 1.3 10*3/uL Normal 1.0-3.5 [facility] Comment on above: Performed By: #### Dru SHEA CMP, ####[facility] ([id number])[address] [address] [address] Lymphocytes/100 WBC (Bld) 10.7 % Normal [facility] Comment on above: Performed By: #### Dru SHEA CMP, ####[facility] ([id number])[address], [place] [address] MCH (RBC) [Entitic mass] 29.7 pg Normal 27-34 [facility] Comment on above: Performed By: #### Dru SHEA CMP, ####[facility] ([id number])[address], [place] [address] MCHC (RBC) [Mass/Vol] 32.9 g/dL Normal 32-36 [facility] Comment on above: Performed By: #### C BCA, CMP, ####[facility] ([id number])[address] [address] MCV (RBC) [Entitic vol] 90 fL Normal 80-100 [facility] Comment on above: Performed By: #### C BCA, CMP, ####[facility] ([id number])[address], [place] [address] Monocytes (Bld) [#/Vol] 1.2 10*3/uL High 0-0.9 [facility] Comment on above: Performed By: #### C BCA, CMP, ####[facility] ([id number])[address], [place] [address] Monocytes/100 WBC (Bld) 10.0 % Normal [facility] Comment on above: Performed By: #### Dru BCA, CMP, ####[facility] ([id number])[address], [place] [address] Neutrophils/100 WBC (Bld) 76.3 % Normal [facility] Comment on above: Performed By: #### Dru BCA, CMP, ####[facility] ([id number])[address] [address] Platelet mean volume (Bld) [Entitic vol] 10.3 fL Normal 7-12 [facility] Comment on above: Performed By: #### C BCA, CMP, ####[facility] ([id number])[address] [address] Platelets (Bld) [#/Vol] 110 10*3/uL Low 150-450 [facility] Comment on above: Performed By: #### C BCA, CMP, ####[facility] ([id number])[address], [place] [address] RBC COUNT 3.00 X10E12/L Low 3.80-5.20 [facility] Comment on above: Performed By: #### C BCA, CMP, 32628-3 ####[facility] ([id number])[address], [address] [place] [address] WBC (Bld) [#/Vol] 12.2 10*3/uL High 4.0-11.0 [facility] Comment on above: Performed By: #### C BCA, CMP, 34218-4 ####[facility] ([id number])[address], [place] [address] COMPREHENSIVE METABOLIC PANE Elver 11-28-2023 Albumin [Mass/Vol] 3.1 g/dL Low 3.2-5.3 [facility] Comment on above: Performed By: #### C BCA, CMP, ####[facility] ([id number])[address], [place] [address] ALP [Catalytic activity/Vol] 126 U/L Normal 39-130 [facility] Comment on above: Performed By: #### C BCA, CMP, 10660-7 ####[facility] ([id number])[address] [address] [place] [address] ALT [Catalytic activity/Vol] 23 U/L Normal 0-31 [facility] Comment on above: Performed By: #### C BCA, CMP, ####[facility] ([id number])[address] [address] [place] [address] Anion gap [Moles/Vol] 11 mmol/L Normal 5-15 [facility] Comment on above: Performed By: #### C BCA, CMP, ####[facility] ([id number])[address], [place] [address] AST [Catalytic activity/Vol] 26 U/L Normal 0-41 [facility] Comment on above: Performed By: #### C BCA, CMP, ####[facility] ([id number])[address], [place] [address] Bilirubin [Mass/Vol] 0.7 mg/dL Normal 0.3-1.2 [facility] Comment on above: Performed By: #### C BCA, CMP, ####[facility] ([id number])[address], [address], [place] [address] Calcium [Mass/Vol] 8.4 mg/dL Low 8.5-10.5 [facility] Comment on above: Performed By: #### C BCA, CMP, ####[facility] ([id number])[address], [place] [address] Chloride [Moles/Vol] 102 mmol/L Normal 98-109 [facility] Comment on above: Performed By: #### C BCA, CMP, ####[facility] ([id number])[address] [address], [place] [address] CO2 [Moles/Vol] 25 mmol/L Normal 22-32 [facility] Comment on above: Performed By: #### C BCA, CMP, ####[facility] ([id number])[address], [place] [address] Creatinine [Mass/Vol] 1.22 mg/dL High 0.40-1.00 [facility] Comment on above: Result Comment: METH OD TRACEABLE TO IDMS STANDARD Performed By: #### C BCA, CMP, ####[facility] ([id number])[address], [address], [place] [address] GFR/1.73 sq M.predicted among non-blacks MDRD (S/P/Bld) [Vol rate/Area] 49 mL/min/{1.73_m2} Low >59 [facility] Comment on above: Result Comment: Repo rted eGFR is based on theCKD-EPI 2020 equation that doesnot use a race coefficient. Performed By: #### C [facility], ####[facility] ([id number])[address] [address], [place] [address] Glucose [Mass/Vol] 167 mg/dL High 65-99 [facility] Comment on above: Performed By: #### C TOO SHEA, ####[facility] ([id number])[address] [address], [place] [address] Potassium [Moles/Vol] 4.0 mmol/L Normal 3.5-5.0 [facility] Comment on above: Performed By: #### C [facility], ####[facility] ([id number])[address] [address], [place] [address] Protein [Mass/Vol] 6.5 g/dL Normal 6.0-8.0 [facility] Comment on above: Performed By: #### C [facility], ####[facility] ([id number])[address] [address] [address] Sodium [Moles/Vol] 138 mmol/L Normal 134-146 [facility] Comment on above: Performed By: #### C BCA CMP, ####[facility] ([id number])[address] [address] [address] Urea nitrogen [Mass/Vol] 61 mg/dL High 5-27 [facility] Comment on above: Performed By: #### C BCA, [facility], ####[facility] ([id number])[address], [address] [place] [address] Glucose Glucometer (BldC) [M ass/Vol]on 11-28-2023 Glucose [Mass/Vol] 213 mg/dL High 65-99 [facility] Glucose [Mass/Vol] 178 mg/dL High 65-99 [facility] Glucose [Mass/Vol] 196 mg/dL High 65-99 [facility] Lactate (P stan) [Moles/Vol]o n 11-28-2023 LACTATE W/REFLEX 1.1 mmol/L Normal 0.4-2.0 [facility] Comment on above: Result Comment: Resu lt did not trigger repeat Lactate,re-order if needed. Performed By: #### 3 2132-1 ####[facility] ([id number])[address] [facility] [address] [place] [address] MAGNESIUMon 11-28-2023 Magnesium [Mass/Vol] 2.0 mg/dL Normal 1.8-2.6 [facility] Comment on above: Performed By: #### C BCA, CMP, 07577-6 ####[facility] ([id number])0 [facility], [address] [place] [address] Magnesium Ionized ISE (Bld) [Moles/Vol]on 11-28-2023 Magnesium [Moles/Vol] 0.60 mmol/L Normal 0.45-0.74 [facility] Comment on above: Result Comment: NEW REFERENCE RANGE Performed By: #### 7 3572-0 ####[facility] ([id number])[address], [address] [place] [address] Surgical Pathologyon 024 Surgical Pathology Normal [facility] Comment on above: Result Comment: [facility] [address] [place] [address] Surgical Pathology ConsultationPatient Name:HARRIS CASTREJON:1955 (Age: 68)Gender:FTaken:4Reported:4Physician(s):Mitra Crowell MD ([phone])Copy To:Varsha Sepulveda MS CGCAccession #:[id number]. Rec. #:[id number]: #[id number] Pathologic Diagnosis1. Rectal mass, biopsies: Fragments of [...] 2AFixative: Formalin (Formalin-fixed, paraffin embedded tissue)MLH1: Vendor: [facility], Primary Antibody: M1MSH2: Vendor: [facility], Primary Antibody: [id number] 6: Vendor: [employer], Primary Antibody: 44PMS2: Vendor: [facility], Primary Antibody: [id number] System: MLH1, MSH2, PMS2: [facility] OptiView DAB IHC Detection Kit (indirect biotin-free detection)MSH6: [facility] ultraView [place] DAB Detection Kit (indirect biotin-free detection)MSH6 was [...] Carcinoma of the Colon and Rectum. Version: [employer] 1.2.0.1. Template posting date: August 2014. CAP.orgRevised 09/2021 Report Electronically Signed [facility]/12/05/2023Susandra Ruiz M.D.[place] [address], License number: [id number].Clinical HistoryRectal mass.Gross Description1. Received in formalin labeled, HESSICK, rectal mass are 7 leroy to medrano by 0.2 to 0.4 cm soft tissue bits. The specimen is filtered and entirely submitted in a single cassette. (1, ns, [id number], m5) SM2. Received in formalin labeled, HESSICK, [...] B-C. Gross photographs are taken. (3, ns, [id number],m5) [facility]/11/29/2023SSISpecimen(s) Received1: Rectal mass2: Rectal mass #[id number] Codes(s):1; 843006; 95142, 49122, 75655(3) CBC AND AUTO DIFFon 11-27-19 24 ABSOLUTE BASOPHIL 0.1 X10E9/L Normal 0.0-0.2 [facility] Comment on above: Performed By: #### C TOO SHEA, ####[facility] ([id number])[address], [address] [address] ABSOLUTE NEUTROPHIL 7.9 X10E9/L High 1.5-6.6 [facility] Comment on above: Performed By: #### C TOO SHEA, ####[facility] ([id number])0 [address] [address], [place] [address] Basophils/100 WBC (Bld) 1.1 % Normal [facility] Comment on above: Performed By: #### C TOO SHEA, ####[facility] ([id number])[address], [address], [place] [address] Eosinophils (Bld) [#/Vol] 0.2 10*3/uL Normal 0.0-0.4 [facility] Comment on above: Performed By: #### Dru SHEA CMP, ####[facility] ([id number])[address], [address], [place] [address] Eosinophils/100 WBC (Bld) 1.7 % Normal [facility] Comment on above: Performed By: #### C TOO SHEA, ####[facility] ([id number])0 [address] [address], [place] [address] Erythrocyte distribution width (RBC) [Ratio] 20.1 % High 11.5-15.0 [facility] Comment on above: Performed By: #### Dru SHEA CMP, ####[facility] ([id number])0 [address] [address] [address] Hematocrit (Bld) [Volume fraction] 27.1 % Low 35-47 [facility] Comment on above: Performed By: #### C BCA, CMP, ####[facility] ([id number])[address], [address] [address] Hemoglobin (Bld) [Mass/Vol] 9.0 g/dL Low 11.7-15.5 [facility] Comment on above: Performed By: #### C BCA, CMP, ####[facility] ([id number])[address], [address], [place] [address] Lymphocytes (Bld) [#/Vol] 1.1 10*3/uL Normal 1.0-3.5 [facility] Comment on above: Performed By: #### Dru SHEA, CMP, ####[facility] ([id number])[address], [address], [place] [address] Lymphocytes/100 WBC (Bld) 10.9 % Normal [facility] Comment on above: Performed By: #### Dru BCA, CMP, ####[facility] ([id number])[address], [address], [place] [address] MCH (RBC) [Entitic mass] 30.0 pg Normal 27-34 [facility] Comment on above: Performed By: #### C MONSE, CMP, ####[facility] ([id number])0 [address] [address] [address] MCHC (RBC) [Mass/Vol] 33.4 g/dL Normal 32-36 [facility] Comment on above: Performed By: #### C BCA, CMP, ####[facility] ([id number])[address] [address] [address] MCV (RBC) [Entitic vol] 90 fL Normal 80-100 [facility] Comment on above: Performed By: #### C BCA, CMP, ####[facility] ([id number])[address], [address], [place] [address] Monocytes (Bld) [#/Vol] 1.1 10*3/uL High 0-0.9 [facility] Comment on above: Performed By: #### Dru SHEA, CMP, ####[facility] ([id number])[address], [address], [place] [address] Monocytes/100 WBC (Bld) 10.7 % Normal [facility] Comment on above: Performed By: #### Dru SHEA, CMP, ####[facility] ([id number])[address], [address], [place] [address] Neutrophils/100 WBC (Bld) 75.6 % Normal [facility] Comment on above: Performed By: #### Dru SHEA, CMP, ####[facility] ([id number])[address], [address], [place] [address] Platelet mean volume (Bld) [Entitic vol] 10.2 fL Normal 7-12 [facility] Comment on above: Performed By: #### Dru SHEA, CMP, ####[facility] ([id number])[address] [address], [place] [address] Platelets (Bld) [#/Vol] 120 10*3/uL Low 150-450 [facility] Comment on above: Performed By: #### Dru BCA, CMP, ####[facility] ([id number])[address], [address], [place] [address] RBC COUNT 3.01 X10E12/L Low 3.80-5.20 [facility] Comment on above: Performed By: #### Dru BCA, CMP, ####[facility] ([id number])[address], [address], [place] [address] WBC (Bld) [#/Vol] 10.5 10*3/uL Normal 4.0-11.0 [facility] Comment on above: Performed By: #### C BCA, CMP, 14972-7 ####[facility] ([id number])[address], [address], [place] [address] COMPREHENSIVE METABOLIC PANE Elver 11-27-2023 Albumin [Mass/Vol] 3.2 g/dL Normal 3.2-5.3 [facility] Comment on above: Performed By: #### C BCA, CMP, ####[facility] ([id number])[address], [address], [place] [address] ALP [Catalytic activity/Vol] 120 U/L Normal 39-130 [facility] Comment on above: Performed By: #### C BCA, CMP, ####[facility] ([id number])[address], [address], [place] [address] ALT [Catalytic activity/Vol] 22 U/L Normal 0-31 [facility] Comment on above: Performed By: #### C BCA, CMP, 94757-9 ####[facility] ([id number])[address], [address], [place] [address] Anion gap [Moles/Vol] 11 mmol/L Normal 5-15 [facility] Comment on above: Performed By: #### C BCA, CMP, ####[facility] ([id number])[address], [address], [place] [address] AST [Catalytic activity/Vol] 24 U/L Normal 0-41 [facility] Comment on above: Performed By: #### C BCA, CMP, 24809-6 ####[facility] ([id number])[address], [address], [place] [address] Bilirubin [Mass/Vol] 0.7 mg/dL Normal 0.3-1.2 [facility] Comment on above: Performed By: #### C BCA, [facility], 010[address]-8 ####[facility] ([id number])[address], [address] [place] [address] Calcium [Mass/Vol] 8.3 mg/dL Low 8.5-10.5 [facility] Comment on above: Performed By: #### C BCA CMP, ####[facility] ([id number])[address], [address], [place] [address] Chloride [Moles/Vol] 106 mmol/L Normal 98-109 [facility] Comment on above: Performed By: #### C TOO SHEA, ####[facility] ([id number])[address] [address], [place] [address] CO2 [Moles/Vol] 25 mmol/L Normal 22-32 [facility] Comment on above: Performed By: #### C TOO SHEA, ####[facility] ([id number])[address] [address], [place] [address] Creatinine [Mass/Vol] 1.27 mg/dL High 0.40-1.00 [facility] Comment on above: Result Comment: METH OD TRACEABLE TO IDMS STANDARD Performed By: #### C MONSE CMP, ####[facility] ([id number])[address] [address], [place] [address] GFR/1.73 sq M.predicted among non-blacks MDRD (S/P/Bld) [Vol rate/Area] 47 mL/min/{1.73_m2} Low >59 [facility] Comment on above: Result Comment: Repo rted eGFR is based on theCKD-EPI 2020 equation that doesnot use a race coefficient. Performed By: #### C BCA, CMP, ####[facility] ([id number])[address], [address], [place] [address] Glucose [Mass/Vol] 166 mg/dL High 65-99 [facility] Comment on above: Performed By: #### C MONSE, CMP, 10730-2 ####[facility] ([id number])[address], [address], [place] [address] Potassium [Moles/Vol] 4.2 mmol/L Normal 3.5-5.0 [facility] Comment on above: Performed By: #### Dru SHEA CMP, ####[facility] ([id number])[address], [address], [place] [address] Protein [Mass/Vol] 6.6 g/dL Normal 6.0-8.0 [facility] Comment on above: Performed By: #### Dru SHEA CMP, ####[facility] ([id number])[address], [address], [place] [address] Sodium [Moles/Vol] 142 mmol/L Normal 134-146 [facility] Comment on above: Performed By: #### Dru SHEA, CMP, 05620-2 ####[facility] ([id number])[address], [address], [place] [address] Urea nitrogen [Mass/Vol] 65 mg/dL High 5-27 [facility] Comment on above: Performed By: #### Dru SHEA, CMP, ####[facility] ([id number])[address], [address], [place] [address] Glucose Glucometer (BldC) [M ass/Vol]on 11-27-2023 Glucose [Mass/Vol] 162 mg/dL High 65-99 [facility] Glucose [Mass/Vol] 219 mg/dL High 65-99 [facility] Glucose [Mass/Vol] 215 mg/dL High 65-99 [facility] Glucose [Mass/Vol] 233 mg/dL High 65-99 [facility] MAGNESIUMon 11-27-2023 Magnesium [Mass/Vol] 2.2 mg/dL Normal 1.8-2.6 [facility] Comment on above: Performed By: #### C MONSE, CMP, 33384-9 ####[facility] ([id number])[address], [address], [place] [address] CBC AND AUTO DIFFon 11-26-19 ABSOLUTE BASOPHIL 0.1 X10E9/L Normal 0.0-0.2 [facility] Comment on above: Performed By: #### C MONSE, CMP, ####[facility] ([id number])[address], [address] [place] [address] ABSOLUTE NEUTROPHIL 7.6 X10E9/L High 1.5-6.6 [facility] Comment on above: Performed By: #### Dru BCA, CMP, ####[facility] ([id number])[address], [address] [place] [address] Basophils/100 WBC (Bld) 1.2 % Normal [facility] Comment on above: Performed By: #### Dru BCA, CMP, ####[facility] ([id number])[address] [address] [place] [address] Eosinophils (Bld) [#/Vol] 0.2 10*3/uL Normal 0.0-0.4 [facility] Comment on above: Performed By: #### C BCA, CMP, ####[facility] ([id number])[address] [address] [place] [address] Eosinophils/100 WBC (Bld) 1.6 % Normal [facility] Comment on above: Performed By: #### C BCA, CMP, ####[facility] ([id number])[address], [address] [address] Erythrocyte distribution width (RBC) [Ratio] 19.8 % High 11.5-15.0 [facility] Comment on above: Performed By: #### Dru SHEA CMP, ####[facility] ([id number])[address] [address], [place] [address] Hematocrit (Bld) [Volume fraction] 28.8 % Low 35-47 [facility] Comment on above: Performed By: #### Dru SHEA CMP, ####[facility] ([id number])[address], [address] [address] Hemoglobin (Bld) [Mass/Vol] 9.6 g/dL Low 11.7-15.5 [facility] Comment on above: Performed By: #### Dru SHEA CMP, ####[facility] ([id number])[address] [address] [place] [address] Lymphocytes (Bld) [#/Vol] 1.0 10*3/uL Normal 1.0-3.5 [facility] Comment on above: Performed By: #### Dru SHEA CMP, ####[facility] ([id number])[address] [address], [place] [address] Lymphocytes/100 WBC (Bld) 10.4 % Normal [facility] Comment on above: Performed By: #### Dru SHEA CMP, ####[facility] ([id number])[address] [address] [address] MCH (RBC) [Entitic mass] 29.7 pg Normal 27-34 [facility] Comment on above: Performed By: #### Dru SHEA CMP, ####[facility] ([id number])[address] [address] [place] [address] MCHC (RBC) [Mass/Vol] 33.4 g/dL Normal 32-36 [facility] Comment on above: Performed By: #### Dru SHEA CMP, ####[facility] ([id number])[address], [address], [place] [address] MCV (RBC) [Entitic vol] 89 fL Normal 80-100 [facility] Comment on above: Performed By: #### Dru SHEA CMP, ####[facility] ([id number])[address], [address] [place] [address] Monocytes (Bld) [#/Vol] 1.1 10*3/uL High 0-0.9 [facility] Comment on above: Performed By: #### Dru SHEA CMP, ####[facility] ([id number])[address], [address] [address] Monocytes/100 WBC (Bld) 10.6 % Normal [facility] Comment on above: Performed By: #### Dru SHEA CMP, ####[facility] ([id number])[address], [address] [address] Neutrophils/100 WBC (Bld) 76.2 % Normal [facility] Comment on above: Performed By: #### Dru SHEA CMP, ####[facility] ([id number])[address], [address], [place] [address] Platelet mean volume (Bld) [Entitic vol] 10.0 fL Normal 7-12 [facility] Comment on above: Performed By: #### Dru SHEA CMP, ####[facility] ([id number])[address], [address], [place] [address] Platelets (Bld) [#/Vol] 144 10*3/uL Low 150-450 [facility] Comment on above: Performed By: #### Dru SHEA, CMP, ####[facility] ([id number])[address], [address], [place] [address] RBC COUNT 3.24 X10E12/L Low 3.80-5.20 [facility] Comment on above: Performed By: #### C BCA, CMP, ####[facility] ([id number])[address], [address] [place] [address] WBC (Bld) [#/Vol] 10.0 10*3/uL Normal 4.0-11.0 [facility] Comment on above: Performed By: #### C BCA, CMP, ####[facility] ([id number])[address], [address] [place] [address] COMPREHENSIVE METABOLIC PANE Elver 11-26-2023 Albumin [Mass/Vol] 3.0 g/dL Low 3.2-5.3 [facility] Comment on above: Performed By: #### C BCA, CMP, ####[facility] ([id number])[address], [address] [place] [address] ALP [Catalytic activity/Vol] 135 U/L High 39-130 [facility] Comment on above: Performed By: #### C BCA, CMP, ####[facility] ([id number])[address] [address] [place] [address] ALT [Catalytic activity/Vol] 23 U/L Normal 0-31 [facility] Comment on above: Performed By: #### C BCA, CMP, ####[facility] ([id number])[address] [address] [place] [address] Anion gap [Moles/Vol] 12 mmol/L Normal 5-15 [facility] Comment on above: Performed By: #### C BCA, CMP, ####[facility] ([id number])[address], [address], [place] [address] AST [Catalytic activity/Vol] 25 U/L Normal 0-41 [facility] Comment on above: Performed By: #### C BCA, CMP, ####[facility] ([id number])[address], [address], [place] [address] Bilirubin [Mass/Vol] 0.7 mg/dL Normal 0.3-1.2 [facility] Comment on above: Performed By: #### C BCA, CMP, ####[facility] ([id number])[address], [address], [place] [address] Calcium [Mass/Vol] 8.2 mg/dL Low 8.5-10.5 [facility] Comment on above: Performed By: #### C BCA, CMP, ####[facility] ([id number])[address], [address], [place] [address] Chloride [Moles/Vol] 102 mmol/L Normal 98-109 [facility] Comment on above: Performed By: #### C BCA, CMP, ####[facility] ([id number])[address], [address], [place] [address] CO2 [Moles/Vol] 28 mmol/L Normal 22-32 [facility] Comment on above: Performed By: #### C BCA, CMP, ####[facility] ([id number])[address], [address], [place] [address] Creatinine [Mass/Vol] 1.40 mg/dL High 0.40-1.00 [facility] Comment on above: Result Comment: METH OD TRACEABLE TO IDMS STANDARD Performed By: #### C BCA, CMP, ####[facility] ([id number])[address] [address] [address] GFR/1.73 sq M.predicted among non-blacks MDRD (S/P/Bld) [Vol rate/Area] 41 mL/min/{1.73_m2} Low >59 [facility] Comment on above: Result Comment: Repo rted eGFR is based on theCKD-EPI 2020 equation that doesnot use a race coefficient. Performed By: #### C TOO SHEA, ####[facility] ([id number])[address] [address] [address] Glucose [Mass/Vol] 173 mg/dL High 65-99 [facility] Comment on above: Performed By: #### Dru SHEA CMP, ####[facility] ([id number])[address] [address] [address] Potassium [Moles/Vol] 3.6 mmol/L Normal 3.5-5.0 [facility] Comment on above: Performed By: #### Dru SHEA CMP, ####[facility] ([id number])[address] [address], [place] [address] Protein [Mass/Vol] 6.4 g/dL Normal 6.0-8.0 [facility] Comment on above: Performed By: #### Dru SHEA CMP, ####[facility] ([id number])[address] [address], [place] [address] Sodium [Moles/Vol] 142 mmol/L Normal 134-146 [facility] Comment on above: Performed By: #### Dru SHEA CMP, ####[facility] ([id number])[address] [address], [place] [address] Urea nitrogen [Mass/Vol] 70 mg/dL High 5-27 [facility] Comment on above: Performed By: #### C TOO SHEA, ####[facility] ([id number])[address], [place] [address] DIGOXINon 11-26-2023 Digoxin [Mass/Vol] 1.0 ng/mL Normal 0.8-2.0 [facility] Comment on above: Performed By: #### 1 0535-3 ####[facility] ([id number])[address], [address] [place] [address] Glucose Glucometer (BldC) [M ass/Vol]on 11-26-2023 Glucose [Mass/Vol] 177 mg/dL High 65-99 [facility] Glucose [Mass/Vol] 323 mg/dL High 65-99 [facility] Glucose [Mass/Vol] 175 mg/dL High 65-99 [facility] Glucose [Mass/Vol] 207 mg/dL High 65-99 [facility] HGB AND HCTon 11-26-2023 Hematocrit (Bld) [Volume fraction] 28.2 % Low 35-47 [facility] Comment on above: Performed By: #### H H ####[facility] ([id number])[address], [address] [place] [address] Hemoglobin (Bld) [Mass/Vol] 9.3 g/dL Low 11.7-15.5 [facility] Comment on above: Performed By: #### H H ####[facility] ([id number])[address], [address] [place] [address] Hematocrit (Bld) [Volume fraction] 26.8 % Low 35-47 [facility] Comment on above: Performed By: #### H H ####[facility] ([id number])[address], [address] [place] [address]66 Hemoglobin (Bld) [Mass/Vol] 8.6 g/dL Low 11.7-15.5 [facility] Comment on above: Performed By: #### H H ####[facility] ([id number])[address], [address], [place] [address] MAGNESIUMon 11-26-2023 Magnesium [Mass/Vol] 2.2 mg/dL Normal 1.8-2.6 [facility] Comment on above: Performed By: #### C TOO SHEA, 96512-7 ####[facility] ([id number])[address], [address], [place] [address] POTASSIUMon 11-26-2023 Potassium [Moles/Vol] 5.6 mmol/L High 3.5-5.0 [facility] Comment on above: Performed By: #### 2 823-3 ####[facility] ([id number])[address], [address] [place] [address] CBC AND AUTO DIFFon 11-25-19 ABSOLUTE BASOPHIL 0.1 X10E9/L Normal 0.0-0.2 [facility] Comment on above: Performed By: #### Dru SHEA CMP, 73984-6 ####[facility] ([id number])[address] [address] [place] [address] ABSOLUTE NEUTROPHIL 7.8 X10E9/L High 1.5-6.6 [facility] Comment on above: Performed By: #### C MONSE CMP, ####[facility] ([id number])[address] [address] [place] [address] Basophils/100 WBC (Bld) 1.0 % Normal [facility] Comment on above: Performed By: #### C MONSE CMP, ####[facility] ([id number])[address] [address] [place] [address] Eosinophils (Bld) [#/Vol] 0.2 10*3/uL Normal 0.0-0.4 [facility] Comment on above: Performed By: #### C MONSE, CMP, ####[facility] ([id number])[address], [address], [place] [address] Eosinophils/100 WBC (Bld) 1.5 % Normal [facility] Comment on above: Performed By: #### C MONSE CMP, ####[facility] ([id number])[address], [address], [place] [address] Erythrocyte distribution width (RBC) [Ratio] 20.3 % High 11.5-15.0 [facility] Comment on above: Performed By: #### C TOO SHEA, ####[facility] ([id number])[address], [place] [address] Hematocrit (Bld) [Volume fraction] 30.5 % Low 35-47 [facility] Comment on above: Performed By: #### Dru SHEA, [facility], ####[facility] ([id number])[address], [place] [address] Hemoglobin (Bld) [Mass/Vol] 10.1 g/dL Low 11.7-15.5 [facility] Comment on above: Performed By: #### Dru SHEA CMP, ####[facility] ([id number])[address], [address], [place] [address] Lymphocytes (Bld) [#/Vol] 1.2 10*3/uL Normal 1.0-3.5 [facility] Comment on above: Performed By: #### C MONSE, CMP, ####[facility] ([id number])[address] [address], [place] [address] Lymphocytes/100 WBC (Bld) 11.4 % Normal [facility] Comment on above: Performed By: #### C MONSE, CMP, ####[facility] ([id number])[address], [address], [place] [address] MCH (RBC) [Entitic mass] 29.6 pg Normal 27-34 [facility] [facility] Comment on above: Performed By: #### Dru SHEA CMP, ####[facility] ([id number])[address], [address], [place] [address] MCHC (RBC) [Mass/Vol] 33.0 g/dL Normal 32-36 [facility] Comment on above: Performed By: #### Dru SHEA, CMP, ####[facility] ([id number])[address], [address], [place] [address] MCV (RBC) [Entitic vol] 90 fL Normal 80-100 [facility] Comment on above: Performed By: #### Dru SHEA CMP, ####[facility] ([id number])[address], [address], [place] [address] Monocytes (Bld) [#/Vol] 1.1 10*3/uL High 0-0.9 [facility] Comment on above: Performed By: #### Dru SHEA, CMP, ####[facility] ([id number])[address] [address], [place] [address] Monocytes/100 WBC (Bld) 10.3 % Normal [facility] Comment on above: Performed By: #### Dru SHEA, CMP, ####[facility] ([id number])[address], [address], [place] [address] Neutrophils/100 WBC (Bld) 75.8 % Normal [facility] Comment on above: Performed By: #### Dru SHEA, CMP, ####[facility] ([id number])[address], [address], [place] [address] Platelet mean volume (Bld) [Entitic vol] 9.7 fL Normal 7-12 [facility] Comment on above: Performed By: #### C BCA, CMP, ####[facility] ([id number])[address], [address], [place] [address] Platelets (Bld) [#/Vol] 145 10*3/uL Low 150-450 [facility] Comment on above: Performed By: #### C BCA, CMP, ####[facility] ([id number])[address], [address] [address] RBC COUNT 3.40 X10E12/L Low 3.80-5.20 [facility] Comment on above: Performed By: #### C BCA, CMP, ####[facility] ([id number])[address], [address], [place] [address] WBC (Bld) [#/Vol] 10.3 10*3/uL Normal 4.0-11.0 [facility] Comment on above: Performed By: #### C BCA, CMP, ####[facility] ([id number])[address] [address] COMPREHENSIVE METABOLIC PANE Elver 11-25-2023 Albumin [Mass/Vol] 3.1 g/dL Low 3.2-5.3 [facility] Comment on above: Performed By: #### C BCA, CMP, ####[facility] ([id number])[address], [address] [address] ALP [Catalytic activity/Vol] 144 U/L High 39-130 [facility] Comment on above: Performed By: #### C BCA, CMP, ####[facility] ([id number])[address], [address] [address] ALT [Catalytic activity/Vol] 28 U/L Normal 0-31 [facility] Comment on above: Performed By: #### C BCA, CMP, ####[facility] ([id number])[address], [place] [address] Anion gap [Moles/Vol] 10 mmol/L Normal 5-15 [facility] Comment on above: Performed By: #### C BCA, CMP, ####[facility] ([id number])[address], [address], [place] [address] AST [Catalytic activity/Vol] 32 U/L Normal 0-41 [facility] Comment on above: Performed By: #### C MONSE, CMP, ####[facility] ([id number])[address], [address], [place] [address] Bilirubin [Mass/Vol] 0.7 mg/dL Normal 0.3-1.2 [facility] Comment on above: Performed By: #### C BCA, CMP, ####[facility] ([id number])[address], [address], [place] [address] Calcium [Mass/Vol] 8.4 mg/dL Low 8.5-10.5 [facility] Comment on above: Performed By: #### C BCA, CMP, ####[facility] ([id number])[address], [address], [place] [address] Chloride [Moles/Vol] 96 mmol/L Low 98-109 [facility] Comment on above: Performed By: #### C BCA, CMP, ####[facility] ([id number])[address], [address], [place] [address] CO2 [Moles/Vol] 31 mmol/L Normal 22-32 [facility] Comment on above: Performed By: #### C BCA, CMP, ####[facility] ([id number])[address] [address], [place] [address] Creatinine [Mass/Vol] 1.38 mg/dL High 0.40-1.00 [facility] Comment on above: Result Comment: METH OD TRACEABLE TO IDMS STANDARD Performed By: #### C TOO SHEA, 62731-4 ####[facility] ([id number])[address] [address] [address] GFR/1.73 sq M.predicted among non-blacks MDRD (S/P/Bld) [Vol rate/Area] 42 mL/min/{1.73_m2} Low >59 [facility] Comment on above: Result Comment: Repo rted eGFR is based on theCKD-EPI 2020 equation that doesnot use a race coefficient. Performed By: #### C TOO SHEA, ####[facility] ([id number])[address] [address] [address] Glucose [Mass/Vol] 156 mg/dL High 65-99 [facility] Comment on above: Performed By: #### C MONSE [facility], ####[facility] ([id number])[address] [address] [address] Potassium [Moles/Vol] 3.5 mmol/L Normal 3.5-5.0 [facility] Comment on above: Performed By: #### C BCA, CMP, ####[facility] ([id number])[address] [address], [place] [address] Protein [Mass/Vol] 6.3 g/dL Normal 6.0-8.0 [facility] Comment on above: Performed By: #### C MONSE, CMP, ####[facility] ([id number])[address] [address], [place] [address] Sodium [Moles/Vol] 137 mmol/L Normal 134-146 [facility] Comment on above: Performed By: #### C TOO SHEA, 74441-8 ####[facility] ([id number])[address], [address] [place] [address] Urea nitrogen [Mass/Vol] 83 mg/dL High 5-27 [facility] Comment on above: Performed By: #### C TOO SHEA, 55464-6 ####[facility] ([id number])[address], [address] [place] [address] Glucose Glucometer (BldC) [M ass/Vol]on 11-25-2023 Glucose [Mass/Vol] 166 mg/dL High 65-99 [facility] Glucose [Mass/Vol] 196 mg/dL High 65-99 [facility] Glucose [Mass/Vol] 197 mg/dL High 65-99 [facility] Glucose [Mass/Vol] 212 mg/dL High 65-99 [facility] Glucose [Mass/Vol] 203 mg/dL High 65-99 [facility] MAGNESIUMon 11-25-2023 Magnesium [Mass/Vol] 2.3 mg/dL Normal 1.8-2.6 [facility] Comment on above: Performed By: #### C TOO SHEA, 53752-5 ####[facility] ([id number])[address], [address] [place] [address] Magnesium Ionized ISE (Bld) [Moles/Vol]on 11-25-2023 Magnesium [Moles/Vol] 0.64 mmol/L Normal 0.45-0.74 [facility] Comment on above: Result Comment: NEW REFERENCE RANGE Performed By: #### 7 3572-0 ####[facility] ([id number])[address], [address] [place] [address] TRIGLYCERIDEon 11-25-2023 Triglyceride [Mass/Vol] 198 mg/dL High 27-150 [facility] Comment on above: Performed By: #### 2 571-8 ####[facility] ([id number])[address], [address] [place] [address] URINALYSISon 11-25-2023 Bilirubin Ql (U) Negative Normal NEG [facility] Comment on above: Performed By: #### U A ####[facility] ([id number])[address], [address] [place] [address] BLOOD/HGB Trace Abnormal NEG [facility] Comment on above: Performed By: #### U A ####[facility] ([id number])[address], [address] [place] [address] Color (U) YELLOW Normal YELLOW [facility] Comment on above: Performed By: #### U A ####[facility] ([id number])[address], [address] [place] [address] Glucose Ql (U) Negative Normal NEG [facility] Comment on above: Performed By: #### U A ####[facility] ([id number])[address], [address] [place] [address] GRANULAR CASTS 8 /lpf High 0 [facility] Comment on above: Performed By: #### U A ####[facility] ([id number])[address], [address] [place] [address] Hyaline casts LM Ql (Urine sed) 11 /lpf High 0-2 [facility] Comment on above: Performed By: #### U A ####[facility] ([id number])[address], [address] [place] [address] Ketones Ql (U) Negative Normal NEG [facility] Comment on above: Performed By: #### U A ####[facility] ([id number])[address], [address] [place] [address] Leukocyte esterase Test strip Ql (U) MODERATE Abnormal NEG [facility] Comment on above: Performed By: #### U A ####[facility] ([id number])[address], [address] [place] [address] MUCOUS PRESENT Abnormal NONE [facility] Comment on above: Performed By: #### U A ####[facility] ([id number])[address] [address] Nitrite Ql (U) Negative Normal NEG [facility] Comment on above: Performed By: #### U A ####[facility] ([id number])[address] [address] pH (U) 7.5 [pH] Normal 5.0-8.5 [facility] Comment on above: Performed By: #### U A ####[facility] ([id number])[address] [address] [place] [address] Protein Ql (U) Trace Abnormal NEG [facility] Comment on above: Performed By: #### U A ####[facility] ([id number])[address] [address] R.B.CELLS 2 /hpf Normal 0-5 [facility] Comment on above: Performed By: #### U A ####[facility] ([id number])[address] [address] [place] [address] Specific gravity (U) [Rel density] 1.016 Normal 1.003-1.035 [facility] Comment on above: Performed By: #### U A ####[facility] ([id number])[address] [address] SQUAMOUS EPITHELIUM 2 /hpf Normal 0-5 [facility] Comment on above: Performed By: #### U A ####[facility] ([id number])[address] [address] TRANSITIONAL EPITH <1 High 0 [facility] Comment on above: Performed By: #### U A ####[facility] ([id number])[address] [address] TURBIDITY HAZY Abnormal CLEAR [facility] Comment on above: Performed By: #### U A ####[facility] ([id number])[address] [address] Urinalysis dipstick W Reflex Microscopic panel (U) URINE RECEIVED WITHOUT PRESERVATIVE-DELAYS IN TRANSPORT MAY AFFECT RESULTS.INTERPRET WITH CAUTION AND CLINICAL CORRELATION IS RECOMMENDED. Normal [facility] Comment on above: Performed By: #### U A ####[facility] ([id number])[address] [address] Urobilinogen (U) [Mass/Vol] mg/dL Normal <1.1 [facility] Comment on above: Performed By: #### U A ####[facility] ([id number])[address] [address] W.B.CELLS 25 /hpf High 0-5 [facility] Comment on above: Performed By: #### U A ####[facility] ([id number])[address] [address] URINE CULTUREon 11-25-2023 Bacteria identified Cx Nom (U) SPECIMEN NOTES URINE RECEIVED WITHOUT PRESERVATIVE CULTURE RESULTS >100,000 ORGANISMS/mL DEBRA ALBICANS URINE RECEIVED WITHOUT PRESERVATIVE-DELAYS IN TRANSPORT MAY AFFECT RESULTS.INTERPRET WITH CAUTION AND CLINICAL CORRELATION IS RECOMMENDED. Normal [facility] Comment on above: Performed By: #### 6 30-4 ####[facility] ([id number])[address] [address] Glucose Glucometer (BldC) [M ass/Vol]on 11-24-2023 Glucose [Mass/Vol] 230 mg/dL High 65-99 [facility] Glucose [Mass/Vol] 197 mg/dL High 65-99 [facility] Glucose [Mass/Vol] 235 mg/dL High 65-99 [facility] Glucose [Mass/Vol] 125 mg/dL High 65-99 [facility] CBC AND AUTO DIFFon 11-23-19 ABSOLUTE BASOPHIL 0.1 X10E9/L Normal 0.0-0.2 [facility] Comment on above: Performed By: #### C MONSE, CMP, , 2776-09 ####[facility] ([id number])[address] [address] ABSOLUTE NEUTROPHIL 7.5 X10E9/L High 1.5-6.6 [facility] Comment on above: Performed By: #### Dru BCA, CMP, , 2776-09 ####[facility] ([id number])[address] [address] Basophils/100 WBC (Bld) 1.0 % Normal [facility] Comment on above: Performed By: #### Dru BCA, CMP, , 2776-09 ####[facility] ([id number])[address] [address] Eosinophils (Bld) [#/Vol] 0.3 10*3/uL Normal 0.0-0.4 [facility] Comment on above: Performed By: #### C BCA, CMP, , 2776-09 ####[facility] ([id number])[address] [address] Eosinophils/100 WBC (Bld) 2.6 % Normal [facility] Comment on above: Performed By: #### Dru BCA, CMP, , 2776-09 ####[facility] ([id number])[address], [address] [place] [address] Erythrocyte distribution width (RBC) [Ratio] 20.4 % High 11.5-15.0 [facility] Comment on above: Performed By: #### C MONSE CMP, , 2776-09 ####[facility] ([id number])[address] [address], [place] [address] Hematocrit (Bld) [Volume fraction] 29.5 % Low 35-47 [facility] Comment on above: Performed By: #### C MONSE, CMP, , 2776-09 ####[facility] ([id number])[address] [address] Hemoglobin (Bld) [Mass/Vol] 9.8 g/dL Low 11.7-15.5 [facility] Comment on above: Performed By: #### Dru SHEA, CMP, , 2776-09 ####[facility] ([id number])[address] [address] [place] [address] Lymphocytes (Bld) [#/Vol] 1.0 10*3/uL Normal 1.0-3.5 [facility] Comment on above: Performed By: #### Dru SHEA, CMP, , 2776-09 ####[facility] ([id number])[address] [address] Lymphocytes/100 WBC (Bld) 10.5 % Normal [facility] Comment on above: Performed By: #### Dru BCA, CMP, , 2776-09 ####[facility] ([id number])[address] [address] MCH (RBC) [Entitic mass] 29.4 pg Normal 27-34 [facility] Comment on above: Performed By: #### Dru BCA, CMP, , 2776-09 ####[facility] ([id number])[address], [place] [address] MCHC (RBC) [Mass/Vol] 33.2 g/dL Normal 32-36 [facility] Comment on above: Performed By: #### C BCA, CMP, , 2776-09 ####[facility] ([id number])[address], [place] [address] MCV (RBC) [Entitic vol] 89 fL Normal 80-100 [facility] Comment on above: Performed By: #### C BCA, CMP, , 2776-09 ####[facility] ([id number])[address] [address], [place] [address] Monocytes (Bld) [#/Vol] 0.9 10*3/uL Normal 0-0.9 [facility] Comment on above: Performed By: #### Dru BCA, CMP, , 2776-09 ####[facility] ([id number])[address] [address], [place] [address] Monocytes/100 WBC (Bld) 9.1 % Normal [facility] Comment on above: Performed By: #### Dru BCA, CMP, , 2776-09 ####[facility] ([id number])[address] [address] [place] [address] Neutrophils/100 WBC (Bld) 76.8 % Normal [facility] Comment on above: Performed By: #### C BCA, CMP, , 2776-09 ####[facility] ([id number])[address] [address] [place] [address], [place] [address] Platelet mean volume (Bld) [Entitic vol] 9.9 fL Normal 7-12 [facility] Comment on above: Performed By: #### Dru BCA, CMP, , 2776-09 ####[facility] ([id number])[address] [address] Platelets (Bld) [#/Vol] 164 10*3/uL Normal 150-450 [facility] Comment on above: Performed By: #### C BCA, CMP, , 2776-09 ####[facility] ([id number])[address] [address] RBC COUNT 3.33 X10E12/L Low 3.80-5.20 [facility] Comment on above: Performed By: #### C BCA, CMP, , 2776-09 ####[facility] ([id number])[address] [place] [address] WBC (Bld) [#/Vol] 9.7 10*3/uL Normal 4.0-11.0 [facility] Comment on above: Performed By: #### C BCA, CMP, , 2776-09 ####[facility] ([id number])[address] [place] [address] COMPREHENSIVE METABOLIC PANE Elver 11-23-2023 Albumin [Mass/Vol] 2.9 g/dL Low 3.2-5.3 [facility] Comment on above: Performed By: #### C BCA, CMP, , 2776-09 ####[facility] ([id number])[address] [address] ALP [Catalytic activity/Vol] 144 U/L High 39-130 [facility] Comment on above: Performed By: #### C BCA, CMP, , 2776-09 ####[facility] ([id number])[address] [address] ALT [Catalytic activity/Vol] 19 U/L Normal 0-31 [facility] Comment on above: Performed By: #### C BCA, CMP, , 2776-09 ####[facility] ([id number])[address], [place] [address] Anion gap [Moles/Vol] 11 mmol/L Normal 5-15 [facility] Comment on above: Performed By: #### C BCA, CMP, , 2776-09 ####[facility] ([id number])[address], [place] [address] AST [Catalytic activity/Vol] 24 U/L Normal 0-41 [facility] Comment on above: Performed By: #### C BCA, CMP, , 2776-09 ####[facility] ([id number])[address], [place] [address] Bilirubin [Mass/Vol] 0.7 mg/dL Normal 0.3-1.2 [facility] Comment on above: Performed By: #### C BCA, CMP, , 2776-09 ####[facility] ([id number])[address], [place] [address] Calcium [Mass/Vol] 8.6 mg/dL Normal 8.5-10.5 [facility] Comment on above: Performed By: #### C BCA, CMP, , 2776-09 ####[facility] ([id number])[address], [place] [address] Chloride [Moles/Vol] 96 mmol/L Low 98-109 [facility] Comment on above: Performed By: #### C BCA, CMP, , 2776-09 ####[facility] ([id number])[address], [place] [address] CO2 [Moles/Vol] 32 mmol/L Normal 22-32 [facility] Comment on above: Performed By: #### C MONSE CMP, , 2776-09 ####[facility] ([id number])[address] [address], [place] [address] Creatinine [Mass/Vol] 1.32 mg/dL High 0.40-1.00 [facility] Comment on above: Result Comment: METH OD TRACEABLE TO IDMS STANDARD Performed By: #### C MONSE CMP, , 2776-09 ####[facility] ([id number])[address] [address], [place] [address] GFR/1.73 sq M.predicted among non-blacks MDRD (S/P/Bld) [Vol rate/Area] 45 mL/min/{1.73_m2} Low >59 [facility] Comment on above: Result Comment: Repo rted eGFR is based on theCKD-EPI 2020 equation that doesnot use a race coefficient. Performed By: #### C MONSE CMP, , 2776-09 ####[facility] ([id number])[address] [address], [place] [address] Glucose [Mass/Vol] 131 mg/dL High 65-99 [facility] Comment on above: Performed By: #### C TOO SHEA, , 2776-09 ####[facility] ([id number])[address] [address] [address] Potassium [Moles/Vol] 3.8 mmol/L Normal 3.5-5.0 [facility] Comment on above: Performed By: #### C MONSE, CMP, , 2776-09 ####[facility] ([id number])[address] [address] [address] Protein [Mass/Vol] 6.4 g/dL Normal 6.0-8.0 [facility] Comment on above: Performed By: #### C BCA, CMP, , 2776-09 ####[facility] ([id number])[address] [place] [address] Sodium [Moles/Vol] 139 mmol/L Normal 134-146 [facility] Comment on above: Performed By: #### C MONSE, CMP, , 2776-09 ####[facility] ([id number])[address] [place] [address] Urea nitrogen [Mass/Vol] 84 mg/dL High 5-27 [facility] Comment on above: Performed By: #### C TOO SHEA, , 2776-09 ####[facility] ([id number])[address], [address] [address] FL SWALLOW MOTILITY FUNCTION on 11-23-2023 FL SWALLOW MOTILITY FUNCTION Normal [facility] Glucose Glucometer (BldC) [M ass/Vol]on 11-23-2023 Glucose [Mass/Vol] 196 mg/dL High 65-99 [facility] Glucose [Mass/Vol] 220 mg/dL High 65-99 [facility] Glucose [Mass/Vol] 140 mg/dL High 65-99 [facility] Glucose [Mass/Vol] 222 mg/dL High 65-99 [facility] MAGNESIUMon 11-23-2023 Magnesium [Mass/Vol] 2.1 mg/dL Normal 1.8-2.6 [facility] Comment on above: Performed By: #### Dru SHEA, CMP, , 2776-09 ####[facility] ([id number])[address], [address] [address] PHOSPHORUSon 11-23-2023 Phosphate [Mass/Vol] 2.6 mg/dL Normal 2.4-4.9 [facility] Comment on above: Performed By: #### Dru SHEA, CMP, , 2776-09 ####[facility] ([id number])[address], [address], [place] [address] CBC AND AUTO DIFFon 11-22-19 ABSOLUTE BASOPHIL 0.1 X10E9/L Normal 0.0-0.2 [facility] Comment on above: Performed By: #### C BCA, CMP, , 2776-09 ####[facility] ([id number])[address], [address], [place] [address] ABSOLUTE NEUTROPHIL 9.8 X10E9/L High 1.5-6.6 [facility] Comment on above: Performed By: #### C BCA, CMP, , 2776-09 ####[facility] ([id number])[address], [address], [place] [address] Basophils/100 WBC (Bld) 1.0 % Normal [facility] Comment on above: Performed By: #### C BCA, CMP, , 2776-09 ####[facility] ([id number])[address] [address] [place] [address] Eosinophils (Bld) [#/Vol] 0.2 10*3/uL Normal 0.0-0.4 [facility] Comment on above: Performed By: #### C BCA, CMP, , 2776-09 ####[facility] ([id number])[address], [address] [place] [address] Eosinophils/100 WBC (Bld) 1.4 % Normal [facility] Comment on above: Performed By: #### C BCA, CMP, , 2776-09 ####[facility] ([id number])[address], [address] [place] [address] Erythrocyte distribution width (RBC) [Ratio] 20.9 % High 11.5-15.0 [facility] Comment on above: Performed By: #### C BCA, CMP, 82035-027[address]-09 ####[facility] ([id number])[address], [address] [address] Hematocrit (Bld) [Volume fraction] 32.5 % Low 35-47 [facility] Comment on above: Performed By: #### C MONSE, CMP, , 2776-09 ####[facility] ([id number])[address], [address], [place] [address] Hemoglobin (Bld) [Mass/Vol] 10.8 g/dL Low 11.7-15.5 [facility] Comment on above: Performed By: #### C MONSE, CMP, , 2776-09 ####[facility] ([id number])[address] [address], [place] [address] Lymphocytes (Bld) [#/Vol] 1.1 10*3/uL Normal 1.0-3.5 [facility] Comment on above: Performed By: #### C BCA, CMP, , 2776-09 ####[facility] ([id number])[address] [address] [place] [address] Lymphocytes/100 WBC (Bld) 9.5 % Normal [facility] Comment on above: Performed By: #### C BCA, CMP, , 2776-09 ####[facility] ([id number])[address], [address], [place] [address] MCH (RBC) [Entitic mass] 29.9 pg Normal 27-34 [facility] Comment on above: Performed By: #### C BCA, CMP, , 2776-09 ####[facility] ([id number])[address] [address], [place] [address] MCHC (RBC) [Mass/Vol] 33.3 g/dL Normal 32-36 [facility] Comment on above: Performed By: #### C BCA, CMP, , 2776-09 ####[facility] ([id number])[address], [address] [address] MCV (RBC) [Entitic vol] 90 fL Normal 80-100 [facility] Comment on above: Performed By: #### C BCA, CMP, , 2776-09 ####[facility] ([id number])[address], [address], [place] [address] Monocytes (Bld) [#/Vol] 0.8 10*3/uL Normal 0-0.9 [facility] Comment on above: Performed By: #### C BCA, CMP, , 2776-09 ####[facility] ([id number])[address], [address], [place] [address] Monocytes/100 WBC (Bld) 6.3 % Normal [facility] Comment on above: Performed By: #### C BCA, CMP, , 2776-09 ####[facility] ([id number])[address], [address], [place] [address] Neutrophils/100 WBC (Bld) 81.8 % Normal [facility] Comment on above: Performed By: #### C BCA, CMP, , 2776-09 ####[facility] ([id number])[address], [address] [address] Platelet mean volume (Bld) [Entitic vol] 10.0 fL Normal 7-12 [facility] Comment on above: Performed By: #### C BCA, CMP, , 2776-09 ####[facility] ([id number])[address], [address], [place] [address] Platelets (Bld) [#/Vol] 122 10*3/uL Low 150-450 [facility] Comment on above: Performed By: #### C BCA, CMP, , 2776-09 ####[facility] ([id number])[address], [address], [place] [address] RBC COUNT 3.62 X10E12/L Low 3.80-5.20 [facility] Comment on above: Performed By: #### C BCA, CMP, , 2776-09 ####[facility] ([id number])[address], [address] [place] [address] WBC (Bld) [#/Vol] 12.0 10*3/uL High 4.0-11.0 [facility] Comment on above: Performed By: #### C BCA, CMP, , 2776-09 ####[facility] ([id number])[address], [address] [place] [address] COMPREHENSIVE METABOLIC PANE Elver 11-22-2023 Albumin [Mass/Vol] 3.0 g/dL Low 3.2-5.3 [facility] Comment on above: Performed By: #### C BCA, CMP, , 2776-09 ####[facility] ([id number])[address], [address] [place] [address] ALP [Catalytic activity/Vol] 157 U/L High 39-130 [facility] Comment on above: Performed By: #### C BCA, CMP, , 2776-09 ####[facility] ([id number])[address], [address] [place] [address], [place] [address] ALT [Catalytic activity/Vol] 17 U/L Normal 0-31 [facility] Comment on above: Performed By: #### C BCA, CMP, , 2776-09 ####[facility] ([id number])[address], [address], [place] [address] Anion gap [Moles/Vol] 14 mmol/L Normal 5-15 [facility] Comment on above: Performed By: #### C BCA, CMP, , 2776-09 ####[facility] ([id number])[address], [place] [address] AST [Catalytic activity/Vol] 32 U/L Normal 0-41 [facility] Comment on above: Performed By: #### C BCA, CMP, , 2776-09 ####[facility] ([id number])[address], [address], [place] [address] Bilirubin [Mass/Vol] 0.8 mg/dL Normal 0.3-1.2 [facility] Comment on above: Performed By: #### C BCA, CMP, , 2776-09 ####[facility] ([id number])[address], [address], [place] [address] Calcium [Mass/Vol] 9.0 mg/dL Normal 8.5-10.5 [facility] Comment on above: Performed By: #### C BCA, CMP, , 2776-09 ####[facility] ([id number])[address], [address], [place] [address] Chloride [Moles/Vol] 97 mmol/L Low 98-109 [facility] Comment on above: Performed By: #### C BCA, CMP, , 2776-09 ####[facility] ([id number])[address], [address], [place] [address] CO2 [Moles/Vol] 28 mmol/L Normal 22-32 [facility] Comment on above: Performed By: #### C BCA, CMP, , 2776-09 ####[facility] ([id number])[address], [address], [place] [address] Creatinine [Mass/Vol] 1.34 mg/dL High 0.40-1.00 [facility] Comment on above: Result Comment: METH OD TRACEABLE TO IDMS STANDARD Performed By: #### C TOO SHEA, , 2776-09 ####[facility] ([id number])[address] [address], [place] [address] GFR/1.73 sq M.predicted among non-blacks MDRD (S/P/Bld) [Vol rate/Area] 44 mL/min/{1.73_m2} Low >59 [facility] Comment on above: Result Comment: Repo rted eGFR is based on theCKD-EPI 2020 equation that doesnot use a race coefficient. Performed By: #### C TOO SHEA, , 2776-09 ####[facility] ([id number])[address] [address], [place] [address] Glucose [Mass/Vol] 147 mg/dL High 65-99 [facility] Comment on above: Performed By: #### C TOO SHEA, , 2776-09 ####[facility] ([id number])[address] [address], [place] [address] Potassium [Moles/Vol] 4.3 mmol/L Normal 3.5-5.0 [facility] Comment on above: Result Comment: SPEC IMEN HEMOLYZED, RESULTS INCREASEDMODERATELY HEMOLYZED Performed By: #### C TOO SHEA, , 2776-09 ####[facility] ([id number])[address] [address], [place] [address] Protein [Mass/Vol] 6.7 g/dL Normal 6.0-8.0 [facility] Comment on above: Performed By: #### C TOO SHEA, , 2776-09 ####[facility] ([id number])[address] [address], [place] [address] Sodium [Moles/Vol] 139 mmol/L Normal 134-146 [facility] Comment on above: Performed By: #### C MONSE, CMP, , 1 ####[facility] ([id number])[address], [address] [place] [address] Urea nitrogen [Mass/Vol] 82 mg/dL High 5-27 [facility] Comment on above: Performed By: #### C BCA, CMP, , 2776-09 ####[facility] ([id number])[address], [address], [place] [address] Glucose Glucometer (BldC) [M ass/Vol]on 11-22-2023 Glucose [Mass/Vol] 186 mg/dL High 65-99 [facility] Glucose [Mass/Vol] 217 mg/dL High 65-99 [facility] Glucose [Mass/Vol] 158 mg/dL High 65-99 [facility] BEDSIDE GLUCOSE LAB >500 Critically high 65-99 [facility] Comment on above: Result Comment: SEE LAB RESULTS FOR CONFIRMATION BEDSIDE GLUCOSE LAB REQUEST CREDITED Normal 65-99 [facility] Comment on above: Result Comment: QUES TIONABLE RESULTSCorrected on 11/22 AT 0831: Previously reported as >500 SEE LAB RESULTS FOR CONFIRMATION Glucose [Mass/Vol] 186 mg/dL High 65-99 [facility] MAGNESIUMon 11-22-2023 Magnesium [Mass/Vol] 2.0 mg/dL Normal 1.8-2.6 [facility] Comment on above: Performed By: #### C BCA, CMP, , 2776-09 ####[facility] ([id number])[address], [address] [place] [address] PHOSPHORUSon 11-22-2023 Phosphate [Mass/Vol] 2.9 mg/dL Normal 2.4-4.9 [facility] Comment on above: Result Comment: SPEC IMEN HEMOLYZED, RESULTS INCREASEDMODERATELY HEMOLYZED Performed By: #### C BCA, CMP, , 2776-09 ####[facility] ([id number])[address], [address], [place] [address] 36on 11-21-2023 36 Thanks for the update [facility] Per patients chart s he has other ID related issues other than UTI. She is on the schedule with Yose[employer]UC[employer] SCIENTIST for the Hospital follow up on 11/28 Normal [facility] CBC AND AUTO DIFFon 11-21-19 24 ABSOLUTE BASOPHIL 0.1 X10E9/L Normal 0.0-0.2 [facility] Comment on above: Performed By: #### Dru SHEA CMP, , 2776-09 ####[facility] ([id number])[address], [address], [place] [address] ABSOLUTE NEUTROPHIL 7.8 X10E9/L High 1.5-6.6 [facility] Comment on above: Performed By: #### Dru SHEA CMP, , 2776-09 ####[facility] ([id number])[address], [address] [place] [address] Basophils/100 WBC (Bld) 1.1 % Normal [facility] Comment on above: Performed By: #### Dru SHEA CMP, , 2776-09 ####[facility] ([id number])[address], [address] [place] [address] Eosinophils (Bld) [#/Vol] 0.2 10*3/uL Normal 0.0-0.4 [facility] Comment on above: Performed By: #### Dru SHEA CMP, , 2776-09 ####[facility] ([id number])[address], [address] [place] [address] Eosinophils/100 WBC (Bld) 2.1 % Normal [facility] Comment on above: Performed By: #### Dru BCA CMP, , 2776-09 ####[facility] ([id number])[address], [address], [place] [address] Erythrocyte distribution width (RBC) [Ratio] 21.5 % High 11.5-15.0 [facility] Comment on above: Performed By: #### C MONSE CMP, , 2776-09 ####[facility] ([id number])[address], [address], [place] [address] Hematocrit (Bld) [Volume fraction] 26.7 % Low 35-47 [facility] Comment on above: Performed By: #### C MONSE CMP, , 2776-09 ####[facility] ([id number])[address], [address], [place] [address] Hemoglobin (Bld) [Mass/Vol] 9.0 g/dL Low 11.7-15.5 [facility] Comment on above: Performed By: #### C MONSE, CMP, , 2776-09 ####[facility] ([id number])[address] [address] [address] Lymphocytes (Bld) [#/Vol] 1.0 10*3/uL Normal 1.0-3.5 [facility] Comment on above: Performed By: #### C MONSE CMP, , 2776-09 ####[facility] ([id number])[address] [address] [address] Lymphocytes/100 WBC (Bld) 9.8 % Normal [facility] Comment on above: Performed By: #### C MONSE, CMP, , 2776-09 ####[facility] ([id number])[address], [address], [place] [address] MCH (RBC) [Entitic mass] 29.9 pg Normal 27-34 [facility] Comment on above: Performed By: #### C BCA, CMP, , 2776-09 ####[facility] ([id number])[address], [address], [place] [address] MCHC (RBC) [Mass/Vol] 33.8 g/dL Normal 32-36 [facility] Comment on above: Performed By: #### C BCA, CMP, , 2776-09 ####[facility] ([id number])[address], [address], [place] [address] MCV (RBC) [Entitic vol] 89 fL Normal 80-100 [facility] Comment on above: Performed By: #### C BCA, CMP, , 2776-09 ####[facility] ([id number])[address], [address], [place] [address] Monocytes (Bld) [#/Vol] 0.8 10*3/uL Normal 0-0.9 [facility] Comment on above: Performed By: #### C BCA, CMP, , 2776-09 ####[facility] ([id number])[address], [address], [place] [address] Monocytes/100 WBC (Bld) 7.7 % Normal [facility] Comment on above: Performed By: #### C BCA, CMP, , 2776-09 ####[facility] ([id number])[address], [address], [place] [address] Neutrophils/100 WBC (Bld) 79.3 % Normal [facility] Comment on above: Performed By: #### C BCA, CMP, , 2776-09 ####[facility] ([id number])[address], [address], [place] [address] Platelet mean volume (Bld) [Entitic vol] 10.0 fL Normal 7-12 [facility] Comment on above: Performed By: #### C BCA, CMP, , 2776-09 ####[facility] ([id number])[address] [address], [place] [address] Platelets (Bld) [#/Vol] 165 10*3/uL Normal 150-450 [facility] Comment on above: Performed By: #### C BCA, CMP, , 2776-09 ####[facility] ([id number])[address], [address] [place] [address] RBC COUNT 3.01 X10E12/L Low 3.80-5.20 [facility] Comment on above: Performed By: #### C BCA, CMP, , 2776-09 ####[facility] ([id number])[address] [address] WBC (Bld) [#/Vol] 9.8 10*3/uL Normal 4.0-11.0 [facility] Comment on above: Performed By: #### C BCA, CMP, , 2776-09 ####[facility] ([id number])[address] [address] [place] [address], [place] [address] COMPREHENSIVE METABOLIC PANE Elver 11-21-2023 Albumin [Mass/Vol] 3.0 g/dL Low 3.2-5.3 [facility] Comment on above: Performed By: #### C BCA, CMP, , 2776-09 ####[facility] ([id number])[address] [address], [place] [address] ALP [Catalytic activity/Vol] 148 U/L High 39-130 [facility] Comment on above: Performed By: #### C BCA, CMP, , 2776-09 ####[facility] ([id number])[address], [address] [place] [address], [place] [address] ALT [Catalytic activity/Vol] 23 U/L Normal 0-31 [facility] Comment on above: Performed By: #### C BCA, CMP, , 2776-09 ####[facility] ([id number])[address], [address], [place] [address] Anion gap [Moles/Vol] 12 mmol/L Normal 5-15 [facility] Comment on above: Performed By: #### C BCA, CMP, , 2776-09 ####[facility] ([id number])[address], [address], [place] [address] AST [Catalytic activity/Vol] 26 U/L Normal 0-41 [facility] Comment on above: Performed By: #### C BCA, CMP, , 2776-09 ####[facility] ([id number])[address], [address], [place] [address] Bilirubin [Mass/Vol] 0.8 mg/dL Normal 0.3-1.2 [facility] Comment on above: Performed By: #### C BCA, CMP, , 2776-09 ####[facility] ([id number])[address], [address], [place] [address] Calcium [Mass/Vol] 8.5 mg/dL Normal 8.5-10.5 [facility] Comment on above: Performed By: #### C BCA, CMP, , 2776-09 ####[facility] ([id number])[address], [address], [place] [address] Chloride [Moles/Vol] 99 mmol/L Normal 98-109 [facility] Comment on above: Performed By: #### C BCA, CMP, , 2776-09 ####[facility] ([id number])[address], [address], [place] [address] CO2 [Moles/Vol] 29 mmol/L Normal 22-32 [facility] Comment on above: Performed By: #### C BCA, CMP, , 2776-09 ####[facility] ([id number])[address] [address], [place] [address] Creatinine [Mass/Vol] 1.34 mg/dL High 0.40-1.00 [facility] Comment on above: Result Comment: METH OD TRACEABLE TO IDMS STANDARD Performed By: #### C BCA, CMP, , 2776-09 ####[facility] ([id number])[address] [address] GFR/1.73 sq M.predicted among non-blacks MDRD (S/P/Bld) [Vol rate/Area] 44 mL/min/{1.73_m2} Low >59 [facility] Comment on above: Result Comment: Repo rted eGFR is based on theCKD-EPI 2020 equation that doesnot use a race coefficient. Performed By: #### C BCA, CMP, , 2776-09 ####[facility] ([id number])[address] [address] [place] [address] Glucose [Mass/Vol] 173 mg/dL High 65-99 [facility] Comment on above: Performed By: #### C BCA, CMP, , 2776-09 ####[facility] ([id number])[address] [address], [place] [address] Potassium [Moles/Vol] 4.1 mmol/L Normal 3.5-5.0 [facility] Comment on above: Performed By: #### C BCA, CMP, , 2776-09 ####[facility] ([id number])[address] [address], [place] [address] Protein [Mass/Vol] 6.3 g/dL Normal 6.0-8.0 [facility] Comment on above: Performed By: #### C TOO SHEA, , 2776-09 ####[facility] ([id number])[address], [place] [address] Sodium [Moles/Vol] 140 mmol/L Normal 134-146 [facility] Comment on above: Performed By: #### C TOO SHEA, , 2776-09 ####[facility] ([id number])[address], [place] [address] Urea nitrogen [Mass/Vol] 82 mg/dL High 5-27 [facility] Comment on above: Performed By: #### C TOO SHEA, , 2776-09 ####[facility] ([id number])[address], [address] [place] [address] Glucose Glucometer (BldC) [M ass/Vol]on 11-21-2023 Glucose [Mass/Vol] 177 mg/dL High 65-99 [facility] Glucose [Mass/Vol] 168 mg/dL High 65-99 [facility] Glucose [Mass/Vol] 169 mg/dL High 65-99 [facility] Glucose [Mass/Vol] 196 mg/dL High 65-99 [facility] MAGNESIUMon 11-21-2023 Magnesium [Mass/Vol] 2.0 mg/dL Normal 1.8-2.6 [facility] Comment on above: Performed By: #### C MONSE, CMP, , 2776-09 ####[facility] ([id number])[address], [place] [address] Magnesium Ionized ISE (Bld) [Moles/Vol]on 11-21-2023 Magnesium [Moles/Vol] 0.57 mmol/L Normal 0.45-0.74 [facility] Comment on above: Result Comment: NEW REFERENCE RANGE Performed By: #### 7 3572-0 ####[facility] ([id number])[address], [place] [address] PHOSPHORUSon 11-21-2023 Phosphate [Mass/Vol] 2.4 mg/dL Normal 2.4-4.9 [facility] Comment on above: Performed By: #### C BCA, CMP, , 2776-09 ####[facility] ([id number])[address], [place] [address] XR CHEST 1 VWon 11-21-2023 XR CHEST 1 VW Normal [facility] COMPREHENSIVE METABOLIC PANE Elver 11-20-2023 Albumin [Mass/Vol] 2.8 g/dL Low 3.2-5.3 [facility] Comment on above: Performed By: #### C BCA, CMP, , 2776-09 ####[facility] ([id number])[address], [place] [address] ALP [Catalytic activity/Vol] 138 U/L High 39-130 [facility] Comment on above: Performed By: #### C BCA, CMP, , 2776-09 ####[facility] ([id number])[address], [place] [address] ALT [Catalytic activity/Vol] 19 U/L Normal 0-31 [facility] Comment on above: Performed By: #### C BCA, CMP, , 2776-09 ####[facility] ([id number])[address], [place] [address] Anion gap [Moles/Vol] 11 mmol/L Normal 5-15 [facility] Comment on above: Performed By: #### C BCA, CMP, , 2776-09 ####[facility] ([id number])[address], [address], [place] [address] AST [Catalytic activity/Vol] 21 U/L Normal 0-41 [facility] Comment on above: Performed By: #### C BCA, CMP, , 2776-09 ####[facility] ([id number])[address], [place] [address] Bilirubin [Mass/Vol] 0.7 mg/dL Normal 0.3-1.2 [facility] Comment on above: Performed By: #### C BCA, CMP, , 2776-09 ####[facility] ([id number])[address] [address] Calcium [Mass/Vol] 7.9 mg/dL Low 8.5-10.5 [facility] Comment on above: Performed By: #### C BCA, CMP, , 2776-09 ####[facility] ([id number])[address] [address] Chloride [Moles/Vol] 105 mmol/L Normal 98-109 [facility] Comment on above: Performed By: #### C BCA, CMP, , 2776-09 ####[facility] ([id number])[address] [address] CO2 [Moles/Vol] 28 mmol/L Normal 22-32 [facility] Comment on above: Performed By: #### C BCA, CMP, , 2776-09 ####[facility] ([id number])[address] [address] [address] Creatinine [Mass/Vol] 1.24 mg/dL High 0.40-1.00 [facility] Comment on above: Result Comment: METH OD TRACEABLE TO IDMS STANDARD Performed By: #### C BCA, CMP, , 2776-09 ####[facility] ([id number])[address] [address] GFR/1.73 sq M.predicted among non-blacks MDRD (S/P/Bld) [Vol rate/Area] 48 mL/min/{1.73_m2} Low >59 [facility] Comment on above: Result Comment: Repo rted eGFR is based on theCKD-EPI 2020 equation that doesnot use a race coefficient. Performed By: #### C TOO SHEA, , 2776-09 ####[facility] ([id number])[address], [place] [address] Glucose [Mass/Vol] 185 mg/dL High 65-99 [facility] Comment on above: Performed By: #### C TOO SHEA, , 2776-09 ####[facility] ([id number])[address], [address], [place] [address] Glucose Glucometer (BldC) [M ass/Vol]on 11-20-2023 Glucose [Mass/Vol] 183 mg/dL High 65-99 [facility] Glucose [Mass/Vol] 175 mg/dL High 65-99 [facility] MAGNESIUMon 11-20-2023 Magnesium [Mass/Vol] 2.0 mg/dL Normal 1.8-2.6 [facility] Comment on above: Performed By: #### C TOO SHEA, , 2776-09 ####[facility] ([id number])[address], [address] [address] PHOSPHORUSon 11-20-2023 Phosphate [Mass/Vol] 3.1 mg/dL Normal 2.4-4.9 [facility] Comment on above: Performed By: #### C TOO SHEA, , 2776-09 ####[facility] ([id number])[address], [address], [place] [address] POTASSIUMon 11-20-2023 Potassium [Moles/Vol] 4.9 mmol/L Normal 3.5-5.0 [facility] Comment on above: Performed By: #### 2 823-3 ####[facility] ([id number])[address], [address], [place] [address] Potassium [Moles/Vol] 3.8 mmol/L Normal 3.5-5.0 [facility] Comment on above: Performed By: #### 2 823-3 ####[facility] ([id number])[address], [address] [place] [address] XR CHEST 1 VWon 11-20-2023 XR CHEST 1 VW Normal [facility] 36on 11-07-2023 36 Patient on schedule for hospital follow up with ID. According to her chart she is currently in the hospital and is scheduled for surgery tomorrow 11/08. Will reach out to her in a few days to reschedule this visit to a more convenient time. Normal [facility] Telephoneon 11-07-2023 Telephone [id number] Correa 1955 F Date Provider Department Center 11/07/2023 [place] [facility] No family history on file Normal [facility] Glucose Glucometer (BldC) [M ass/Vol]on 10-19-2023 Glucose [Mass/Vol] 198 mg/dL High 65-99 [facility] POTASSIUMon 10-19-2023 Potassium [Moles/Vol] 3.1 mmol/L Low 3.5-5.0 [facility] Comment on above: Performed By: #### [place], [address]-9, 73895-5, 67228-9, 67903-0, 28847-1, 2157-6, 97282-1, PINR, CBCA, TSHR #### [facility] ([id number]) [address] [place] [address], [place] [address] XR CHEST 1 VWon 10-19-2023 XR CHEST [...] Olson MD on 10/19/2023 3:24 AM Normal [facility] XR CHEST 1 VW XR CHEST 1 [...] Olson MD on 10/19/2023 3:11 AM Normal [facility] ARTERIAL BLOOD GASon 024 RONNIE'S TEST Pass Normal [facility] Comment on above: Performed By: #### C , 81353-0, 77596-2, 56817-9, 00138-2, 36248-4, 2157-6, 18963-2, PINR, CBCA, TSHR #### [facility] ([id number]) [address] [place] [address], [place] [address] Base excess Calc (Bld) [Moles/Vol] 9.0 mmol/L High 0.0-2.0 [facility] Comment on above: Performed By: #### C , 37684-4, 64908-1, 27539-8, 15992-6, 03602-0, 2157-6, 89197-9, PINR, CBCA, TSHR #### [facility] ([id number]) [address] [place] [address] [place] [address] Body temperature 98.6 [degF] Normal 37.0 [facility] Comment on above: Performed By: #### [place], 43176-7, 26991-4, 98110-1, 59796-6, 55160-8, 2157-6, 23816-0, PINR, CBCA, TSHR #### [facility] ([id number]) [address] [place] [address] HCO3 (Bld) [Moles/Vol] 29.3 mmol/L High 22-26 [facility] [facility] Comment on above: Performed By: #### C MP, 02845-3, 84487-3, 22068-7, 22491-2, 36167-7, 2157-6, 98839-4, PINR, CBCA, TSHR #### [facility] ([id number]) [address] [place] [address] 01097 Oxygen (Bld) [Partial pressure] 117 mm[Hg] High 80-100 [facility] Comment on above: Performed By: #### C MP, 90565-4, 42875-7, 74799-3, 36133-1, 08791-3, 2157-6, 61724-5, PINR, CBCA, TSHR #### [facility] ([id number]) [address] [place] [address] [place] [address] Oxygen saturation in Blood 99.0 % Normal >90 [facility] Comment on above: Performed By: #### C MP, 13020-4, 29145-4, 10826-7, 45607-2, 87011-0, 2157-6, 29098-3, PINR, CBCA, TSHR #### [facility] ([id number]) [address] [place] [address] [place] [address] OXYGEN SOURCE [place] [facility] Comment on above: Performed By: #### C MP, 20926-2, 76236-3, 57980-7, 74415-0, 99087-1, 2157-6, 44748-1, PINR, CBCA, TSHR #### [facility] ([id number]) [address] [place] [address] 68903 PCO2 26.8 MMHG Low 35-45 [facility] Comment on above: Performed By: #### C MP, 28667-8, 45766-3, 90571-5, 25418-8, 75432-3, 2157-6, 98392-8, PINR, CBCA, TSHR #### [facility] ([id number]) [address] [place] [address] 19884 pH (Bld) 7.646 [pH] Critically high 7.350-7.450 [facility] Comment on above: Performed By: #### C MP, 01508-3, 42537-4, 29358-0, 42749-2, 70212-5, 2157-6, 18125-8, PINR, CBCA, TSHR #### [facility] ([id number]) [address] [place] [address] 56366 SAMPLE SITE RBrach [facility] Comment on above: Performed By: #### C MP, 64179-0, 83037-2, 72863-3, 53648-6, 51077-0, 2157-6, 42073-1, PINR, CBCA, TSHR #### [facility] ([id number]) [address] [place] [address] 67824 SAMPLE TYPE ARTERIAL [facility] Comment on above: Performed By: #### C MP, 16635-4, 99450-7, 90997-1, 00059-2, 03230-9, 2157-6, 17217-7, PINR, CBCA, TSHR #### [facility] ([id number]) [address] [place] [address] 01790 BASIC METABOLIC PANLon 10-18 Anion gap [Moles/Vol] 17 mmol/L High 5-15 [facility] Comment on above: Performed By: #### C MP, 29821-2, 37850-9, 95389-1, 36525-7, 31400-1, 2157-6, 45869-0, PINR, CBCA, TSHR #### [facility] ([id number]) [address] [place] [address] 95006 Calcium [Mass/Vol] 8.4 mg/dL Low 8.5-10.5 [facility] Comment on above: Performed By: #### C MP, 15774-4, 76473-6, 29717-8, 81876-7, 30325-7, 2157-6, 11639-5, PINR, CBCA, TSHR #### [facility] ([id number]) [address] [place] [address] 28870 Chloride [Moles/Vol] 95 mmol/L Low 98-109 [facility] Comment on above: Performed By: #### C MP, 78988-1, 30333-5, 82587-7, 46814-6, 85040-5, 2157-6, 25543-1, PINR, CBCA, TSHR #### [facility] ([id number]) [address] [place] [address] 40215 CO2 [Moles/Vol] 29 mmol/L Normal 22-32 [facility] Comment on above: Performed By: #### C MP, 77481-9, 01057-1, 25573-7, 03841-5, 18304-6, 2157-6, 26007-8, PINR, CBCA, TSHR #### [facility] ([id number]) [address] [place] [address] [place] [address] Creatinine [Mass/Vol] 2.38 mg/dL High 0.40-1.00 [facility] Comment on above: Result Comment: METH OD TRACEABLE TO IDMS STANDARD Performed By: #### C ROSALBA, 32808-7, 16678-4, 13247-7, 96294-2, 24905-0, 2157-6, 79235-6, PINR, CBCA, TSHR #### [facility] ([id number]) [address] [place] [address] 57854 GFR/1.73 sq M.predicted among non-blacks MDRD (S/P/Bld) [Vol rate/Area] 22 mL/min/{1.73_m2} Low >59 [facility] Comment on above: Result Comment: Reported eGFR is based on the CKD-EPI 2020 equation that does not use a race coefficient. Performed By: #### C ROSALBA, 60868-8, 60371-5, 30569-2, 63963-2, 55627-1, 2157-6, 80464-2, PINR, CBCA, TSHR #### [facility] ([id number]) [address] [place] [address] 58516 Glucose [Mass/Vol] 238 mg/dL High 65-99 [facility] Comment on above: Performed By: #### C ROSALBA, 83313-5, 79713-8, 40529-3, 38558-2, 34992-4, 2157-6, 34211-5, PINR, CBCA, TSHR #### [facility] ([id number]) [address] [place] [address] 12697 Sodium [Moles/Vol] 141 mmol/L Normal 134-146 [facility] Comment on above: Performed By: #### C MP, 64196-7, 66003-6, 09156-9, 82279-8, 53610-5, 2157-6, 79431-9, PINR, CBCA, TSHR #### [facility] ([id number]) [address] [place] [address] 83274 Urea nitrogen [Mass/Vol] 139 mg/dL High 5-27 [facility] Comment on above: Performed By: #### C MP, 45703-7, 74394-0, 97277-6, 21035-9, 19364-5, 2157-6, 88670-3, PINR, CBCA, TSHR #### [facility] ([id number]) [address] [place] [address] 88240 Potassium [Moles/Vol] 2.6 mmol/L Critically low 3.5-5.0 [facility] Comment on above: Performed By: #### C ROSALBA, 24043-9, 80275-4, 18908-3, 95669-2, 49808-7, 2157-6, 60608-4, PINR, CBCA, TSHR #### [facility] ([id number]) [address] [place] [address] 17706 BLOOD CULTUREon 10-18-2023 Bacteria identified Aer cx Nom (Bld) SPECIMEN NOTES R WRIST CULTURE RESULTS NO GROWTH 5 DAYS Normal [facility] Comment on above: Performed By: #### C MP, 34166-3, 11717-1, 14563-6, 80473-0, 81114-9, 2157-6, 31192-8, PINR, CBCA, TSHR #### [facility] ([id number]) [address] [place] [address] 59787 Bacteria identified Aer cx Nom (Bld) SPECIMEN NOTES LAC CULTURE RESULTS NO GROWTH 5 DAYS Normal [facility] Comment on above: Performed By: #### C MP, 55647-2, 70375-6, 71798-2, 20908-8, 18592-6, 2157-6, 46276-9, PINR, CBCA, TSHR #### [facility] ([id number]) [address] [place] [address] 82212 CBC AND AUTO DIFFon 10-18-19 24 ABSOLUTE BASOPHIL 0.0 X10E9/L Normal 0.0-0.2 [facility] Comment on above: Performed By: #### C MP, 12602-7, 96640-8, 36142-9, 71271-8, 18318-0, 2157-6, 79115-4, PINR, CBCA, TSHR #### [facility] ([id number]) [address] [place] [address] 80114 ABSOLUTE NEUTROPHIL 5.5 X10E9/L Normal 1.5-6.6 [facility] Comment on above: Performed By: #### C MP, 53904-1, 27158-4, 70978-0, 62409-1, 90164-4, 2157-6, 04766-9, PINR, CBCA, TSHR #### [facility] ([id number]) [address] [place] [address] 24205 Basophils/100 WBC (Bld) 0.5 % Normal [facility] Comment on above: Performed By: #### C MP, 28030-5, 24650-3, 37434-4, 43431-0, 04335-6, 2157-6, 96599-5, PINR, CBCA, TSHR #### [facility] ([id number]) [address] [place] [address] 20188 Eosinophils (Bld) [#/Vol] 0.1 10*3/uL Normal 0.0-0.4 [facility] Comment on above: Performed By: #### C MP, 70980-5, 49833-5, 75184-5, 46506-7, 58393-9, 2157-6, 18246-3, PINR, CBCA, TSHR #### [facility] ([id number]) [address] [place] [address] 86220 Eosinophils/100 WBC (Bld) 1.3 % Normal [facility] Comment on above: Performed By: #### C MP, 48614-5, 28748-1, 70244-2, 49689-2, 73082-7, 2157-6, 80034-6, PINR, CBCA, TSHR #### [facility] ([id number]) [address] [place] [address] 02154 Erythrocyte distribution width (RBC) [Ratio] 17.4 % High 11.5-15.0 [facility] Comment on above: Performed By: #### C MP, 34212-4, 11954-0, 55711-0, 16842-7, 68785-4, 2157-6, 69411-9, PINR, CBCA, TSHR #### [facility] ([id number]) [address] [place] [address] 60492 Hematocrit (Bld) [Volume fraction] 32.1 % Low 35-47 [facility] Comment on above: Performed By: #### C MP, 83038-0, 56912-4, 59540-8, 13937-4, 54552-3, 2157-6, 33987-0, PINR, CBCA, TSHR #### [facility] ([id number]) [address] [place] [address] 21609 Hemoglobin (Bld) [Mass/Vol] 10.6 g/dL Low 11.7-15.5 [facility] Comment on above: Performed By: #### C MP, 93453-9, 94803-4, 06698-6, 01956-9, 23689-6, 2157-6, 39093-0, PINR, CBCA, TSHR #### [facility] ([id number]) [address] [place] [address] 00062 Lymphocytes (Bld) [#/Vol] 0.9 10*3/uL Low 1.0-3.5 [facility] Comment on above: Performed By: #### C MP, 76703-4, 96238-2, 34376-7, 00499-7, 09743-8, 2157-6, 63438-2, PINR, CBCA, TSHR #### [facility] ([id number]) [address] [place] [address] 00822 Lymphocytes/100 WBC (Bld) 12.1 % Normal [facility] Comment on above: Performed By: #### C MP, 65753-7, 92812-5, 27664-0, 70267-0, 58289-7, 2157-6, 87320-4, PINR, CBCA, TSHR #### [facility] ([id number]) [address] [place] [address] 81959 MCH (RBC) [Entitic mass] 30.7 pg Normal 27-34 [facility] Comment on above: Performed By: #### C MP, 04313-0, 13057-6, 07417-0, 43860-0, 24619-5, 2157-6, 39988-4, PINR, CBCA, TSHR #### [facility] ([id number]) [address] [place] [address] 29352 MCHC (RBC) [Mass/Vol] 33.1 g/dL Normal 32-36 [facility] Comment on above: Performed By: #### C MP, 07581-2, 48940-1, 83769-3, 14648-0, 44031-9, 2157-6, 40057-9, PINR, CBCA, TSHR #### [facility] ([id number]) [address] [place] [address] 52946 MCV (RBC) [Entitic vol] 93 fL Normal 80-100 [facility] Comment on above: Performed By: #### C MP, 36541-4, 84579-0, 95855-5, 84718-9, 61904-7, 2157-6, 41517-6, PINR, CBCA, TSHR #### [facility] ([id number]) [address] [place] [address] 45793 Monocytes (Bld) [#/Vol] 0.6 10*3/uL Normal 0-0.9 [facility] Comment on above: Performed By: #### C MP, 42106-4, 02795-6, 84516-2, 40512-6, 28105-6, 2157-6, 95087-6, PINR, CBCA, TSHR #### [facility] ([id number]) [address] [place] [address] 95247 Monocytes/100 WBC (Bld) 8.9 % Normal [facility] Comment on above: Performed By: #### C MP, 13596-1, 08464-2, 08740-1, 31114-1, 71642-5, 2157-6, 26909-7, PINR, CBCA, TSHR #### [facility] ([id number]) [address] [place] [address] 68543 Neutrophils/100 WBC (Bld) 77.2 % Normal [facility] Comment on above: Performed By: #### C MP, 13705-1, 96356-9, 63040-5, 03343-1, 16774-5, 2157-6, 40966-9, PINR, CBCA, TSHR #### [facility] ([id number]) [address] [place] [address] 89661 Platelet mean volume (Bld) [Entitic vol] 10.6 fL Normal 7-12 [facility] Comment on above: Performed By: #### C MP, 53370-3, 66047-1, 92789-5, 23858-0, 56819-0, 2157-6, 34106-2, PINR, CBCA, TSHR #### [facility] ([id number]) [address] [place] [address] 87761 Platelets (Bld) [#/Vol] 131 10*3/uL Low 150-450 [facility] Comment on above: Performed By: #### C MP, 41314-8, 73338-4, 51232-5, 64605-1, 05806-9, 2157-6, 85917-2, PINR, CBCA, TSHR #### [facility] ([id number]) [address] [place] [address] 62724 RBC COUNT 3.47 X10E12/L Low 3.80-5.20 [facility] Comment on above: Performed By: #### C MP, 95205-9, 39634-2, 93268-1, 38190-2, 88205-8, 2157-6, 50017-3, PINR, CBCA, TSHR #### [facility] ([id number]) [address] [place] [address] 88315 WBC (Bld) [#/Vol] 7.2 10*3/uL Normal 4.0-11.0 [facility] Comment on above: Performed By: #### C MP, 87173-0, 49516-4, 96155-5, 59627-5, 32579-2, 2157-6, 50708-1, PINR, CBCA, TSHR #### [facility] ([id number]) [address] [place] [address] [place] [address] COMPREHENSIVE METABOLIC PANE Elver 10-18-2023 Albumin [Mass/Vol] 3.0 g/dL Low 3.2-5.3 [facility] Comment on above: Performed By: #### C MP, 49591-0, 35547-5, 01937-1, 47717-5, 78894-3, 2157-6, 75202-6, PINR, CBCA, TSHR #### [facility] ([id number]) [address] [place] [address] 69769 ALP [Catalytic activity/Vol] 106 U/L Normal 39-130 [facility] Comment on above: Performed By: #### C MP, 11370-6, 82173-9, 35706-1, 03256-3, 97370-0, 2157-6, 51102-7, PINR, CBCA, TSHR #### [facility] ([id number]) [address] [place] [address] 96924 ALT [Catalytic activity/Vol] 18 U/L Normal 0-31 [facility] Comment on above: Performed By: #### C MP, 67038-0, 66396-4, 61892-2, 66784-6, 96505-6, 2157-6, 53844-5, PINR, CBCA, TSHR #### [facility] ([id number]) [address] [place] [address] 44284 AST [Catalytic activity/Vol] 24 U/L Normal 0-41 [facility] Comment on above: Performed By: #### C MP, 33145-7, 93371-2, 07390-3, 52593-8, 40052-5, 2157-6, 16117-4, PINR, CBCA, TSHR #### [facility] ([id number]) [address] [place] [address] 55244 Bilirubin [Mass/Vol] 1.7 mg/dL High 0.3-1.2 [facility] Comment on above: Performed By: #### C MP, 06628-8, 65611-5, 30791-1, 82668-2, 43775-9, 2157-6, 41655-5, PINR, CBCA, TSHR #### [facility] ([id number]) [address] [place] [address] 13524 Calcium [Mass/Vol] 8.1 mg/dL Low 8.5-10.5 [facility] Comment on above: Performed By: #### C MP, 53863-6, 53208-6, 31110-9, 85482-1, 89499-1, 2157-6, 17352-8, PINR, CBCA, TSHR #### [facility] ([id number]) [address] [place] [address] 51354 Chloride [Moles/Vol] 90 mmol/L Low 98-109 [facility] Comment on above: Performed By: #### C MP, 27884-2, 76818-3, 80789-5, 66664-3, 55293-1, 2157-6, 17297-6, PINR, CBCA, TSHR #### [facility] ([id number]) [address] [place] [address] 91842 CO2 [Moles/Vol] 32 mmol/L Normal 22-32 [facility] Comment on above: Performed By: #### C MP, 01502-0, 46605-9, 85684-3, 57247-8, 26964-9, 2157-6, 46849-7, PINR, CBCA, TSHR #### [facility] ([id number]) [address] [place] [address] 97050 Creatinine [Mass/Vol] 2.40 mg/dL High 0.40-1.00 [facility] Comment on above: Result Comment: METH OD TRACEABLE TO IDMS STANDARD Performed By: #### C MP, 05935-9, 28655-6, 89785-1, 67112-4, 91652-2, 2157-6, 06243-6, PINR, CBCA, TSHR #### [facility] ([id number]) [address] [place] [address] 17595 Glucose [Mass/Vol] 279 mg/dL High 65-99 [facility] Comment on above: Performed By: #### C MP, 18339-0, 27310-1, 45138-5, 80914-4, 20787-7, 2157-6, 67708-2, PINR, CBCA, TSHR #### [facility] ([id number]) [address] [place] [address] 76702 Protein [Mass/Vol] 7.6 g/dL Normal 6.0-8.0 [facility] Comment on above: Performed By: #### C MP, 90109-5, 67215-4, 23322-4, 87546-4, 28745-0, 2157-6, 35702-3, PINR, CBCA, TSHR #### [facility] ([id number]) [address] [place] [address] 60467 Sodium [Moles/Vol] 139 mmol/L Normal 134-146 [facility] Comment on above: Performed By: #### C ROSALBA, 44902-5, 45377-6, 67941-4, 48337-6, 72656-7, 2157-6, 77612-7, PINR, CBCA, TSHR #### [facility] ([id number]) [address] [place] [address] 41857 Urea nitrogen [Mass/Vol] 142 mg/dL High 5-27 [facility] Comment on above: Performed By: #### C MP, 17658-2, 26812-6, 80739-7, 38820-4, 58074-5, 2157-6, 56792-3, PINR, CBCA, TSHR #### [facility] ([id number]) [address] [place] [address] 69227 Potassium [Moles/Vol] 2.1 mmol/L Critically low 3.5-5.0 [facility] Comment on above: Performed By: #### C MP, 70925-9, 75505-3, 56537-0, 75816-9, 00142-0, 2157-6, 29037-6, PINR, CBCA, TSHR #### [facility] ([id number]) [address] [place] [address] 37668 Creatinine (U) [Mass/Vol]on 10-18-2023 URINE CREATININE,RDM 14.45 mg/dL Normal [facility] Comment on above: Performed By: #### C ROSALBA, 54072-8, 45088-2, 10892-9, 88298-2, 78429-2, 2157-6, 87753-7, PINR, CBCA, TSHR #### [facility] ([id number]) [address] [place] [address] 81428 Glucose Glucometer (BldC) [M ass/Vol]on 10-18-2023 Glucose [Mass/Vol] 142 mg/dL High 65-99 [facility] Glucose [Mass/Vol] 212 mg/dL High 65-99 [facility] Glucose [Mass/Vol] 311 mg/dL High 65-99 [facility] Lactate (P stan) [Moles/Vol]o n 10-18-2023 LACTATE W/REFLEX 1.8 mmol/L Normal 0.4-2.0 [facility] Comment on above: Result Comment: Result did not trigger repeat Lactate, re-order if needed. Performed By: #### C ROSALBA, 71868-6, 64407-0, 53379-9, 57533-1, 80925-6, 2157-6, 71267-0, PINR, CBCA, TSHR #### [facility] ([id number]) [address] [place] [address] 82506 MAGNESIUMon 10-18-2023 Magnesium [Mass/Vol] 2.2 mg/dL Normal 1.8-2.6 [facility] Comment on above: Performed By: #### C ROSALBA, 65615-9, 65014-7, 32517-7, 20021-2, 22516-7, 2157-6, 42594-8, PINR, CBCA, TSHR #### [facility] ([id number]) [address] [place] [address] 48592 Magnesium [Mass/Vol] 1.8 mg/dL Normal 1.8-2.6 [facility] Comment on above: Performed By: #### C MP, 75301-6, 54247-8, 42642-3, 84728-0, 69519-8, 2157-6, 45768-7, PINR, CBCA, TSHR #### [facility] ([id number]) [address] [place] [address] 01727 MICROALBUMIN - ALBUMIN:CREAT ININE URINE RATIOon 10-18-2023 ALB/CREAT RATIO 2103.3 mg/g creat High 0.0-30.0 [facility] Comment on above: Performed By: #### C MP, 79793-5, 19664-6, 14311-1, 91495-8, 95818-0, 2157-6, 77185-1, PINR, CBCA, TSHR #### [facility] ([id number]) [address] [place] [address] 65644 Albumin DL <= 20 mg/L (U) [Mass/Vol] 27.7 mg/dL High 0.0-1.9 [facility] Comment on above: Performed By: #### C MP, 41276-1, 81362-5, 42490-7, 74556-1, 65792-0, 2157-6, 27782-6, PINR, CBCA, TSHR #### [facility] ([id number]) [address] [place] [address] 40980 URINE CREAT 13.17 mg/dL Normal [facility] Comment on above: Performed By: #### C MP, 79807-4, 23796-0, 57590-2, 85532-4, 11304-1, 2157-6, 95706-0, PINR, CBCA, TSHR #### [facility] ([id number]) [address] [place] [address] 29286 POTASSIUMon 10-18-2023 Potassium [Moles/Vol] 2.7 mmol/L Critically low 3.5-5.0 [facility] Comment on above: Performed By: #### C MP, 24970-0, 97061-6, 54918-4, 33759-1, 54873-4, 2157-6, 71708-4, PINR, CBCA, TSHR #### [facility] ([id number]) [address] [place] [address] 43051 Procalcitonin IA [Mass/Vol]o n 10-18-2023 PROCALCITONIN 3.02 ng/mL High <0.05 [facility] Comment on above: Result Comment: NOTE <0.50 ng/mL - Low risk of severe sepsis and/or septic shock. <2.00 ng/mL - Recommend retesting within 6-24 hours. >2.00 ng/mL - High risk of sepsis and/or septic shock. Performed By: #### C ROSALBA, 96748-0, 41536-3, 96273-7, 52363-4, 61388-0, 2157-6, 41039-7, PINR, CBCA, TSHR #### [facility] ([id number]) [address] [place] [address] 13844 TROPONIN Ion 10-18-2023 Troponin I.cardiac [Mass/Vol] 0.08 ng/mL High 0.00-0.04 [facility] Comment on above: Result Comment: Concentrations greater than or equal to 0.05 ng/ml are considered elevated. Elevations of Troponin may be due to causes other than myocardial ischemia. Recommend serial Troponin testing be performed. Performed By: #### C MP, 62811-2, 56027-2, 39979-3, 03249-2, 54564-8, 2157-6, 78653-2, PINR, CBCA, TSHR #### [facility] ([id number]) [address] [place] [address] 54152 Troponin I.cardiac [Mass/Vol] 0.11 ng/mL High 0.00-0.04 [facility] Comment on above: Result Comment: Concentrations greater than or equal to 0.05 ng/ml are considered elevated. Elevations of Troponin may be due to causes other than myocardial ischemia. Recommend serial Troponin testing be performed. Performed By: #### C MP, 95949-4, 24980-2, 64267-0, 37719-9, 54418-9, 2157-6, 10393-7, PINR, CBCA, TSHR #### [facility] ([id number]) [address] [place] [address] 06167 Troponin I.cardiac [Mass/Vol] 0.09 ng/mL High 0.00-0.04 [facility] Comment on above: Result Comment: Concentrations greater than or equal to 0.05 ng/ml are considered elevated. Elevations of Troponin may be due to causes other than myocardial ischemia. Recommend serial Troponin testing be performed. Performed By: #### C [place], 76751-8, 50891-4, 21746-0, 14224-9, 14363-4, 2157-6, 07827-3, PINR, CBCA, TSHR #### [facility] ([id number]) [address] [place] [address] 98303 URINE SODIUM,RANDOMon 2023 Sodium (U) [Moles/Vol] 94 mmol/L Normal [facility] Comment on above: Performed By: #### C MP, 65943-3, 78410-9, 77568-7, 45071-6, 56705-0, 2157-6, 11274-8, PINR, CBCA, TSHR #### [facility] ([id number]) [address] [place] [address] 81882 CBC AND AUTO DIFFon 10-17-19 24 ABSOLUTE BASOPHIL 0.0 X10E9/L Normal 0.0-0.2 [facility] Comment on above: Performed By: #### C MP, 87758-8, 09450-3, 13967-6, 09726-1, 93776-0, 2157-6, 51772-3, PINR, CBCA, TSHR #### [facility] ([id number]) [address] [place] [address] 37610 ABSOLUTE NEUTROPHIL 6.4 X10E9/L Normal 1.5-6.6 [facility] Comment on above: Performed By: #### C MP, 69833-3, 42254-1, 76585-2, 89017-3, 41265-1, 2157-6, 34991-1, PINR, CBCA, TSHR #### [facility] ([id number]) [address] [place] [address] 36297 Basophils/100 WBC (Bld) 0.4 % Normal [facility] Comment on above: Performed By: #### C MP, 57720-6, 99274-7, 56999-0, 50549-8, 69967-8, 2157-6, 96337-1, PINR, CBCA, TSHR #### [facility] ([id number]) [address] [place] [address] 33467 Eosinophils (Bld) [#/Vol] 0.1 10*3/uL Normal 0.0-0.4 [facility] Comment on above: Performed By: #### C MP, 65573-3, 43020-5, 11224-6, 12632-3, 10435-7, 2157-6, 64400-2, PINR, CBCA, TSHR #### [facility] ([id number]) [address] [place] [address] [place] [address] Eosinophils/100 WBC (Bld) 0.9 % Normal [facility] Comment on above: Performed By: #### C MP, 21916-2, 73740-1, 37970-1, 01502-7, 63631-1, 2157-6, 99450-4, PINR, CBCA, TSHR #### [facility] ([id number]) [address] [place] [address] 23412 Erythrocyte distribution width (RBC) [Ratio] 17.5 % High 11.5-15.0 [facility] Comment on above: Performed By: #### C ROSALBA, 29160-9, 11512-2, 66189-7, 34633-4, 36279-2, 2157-6, 54986-4, PINR, CBCA, TSHR #### [facility] ([id number]) [address] [place] [address] 34556 Hematocrit (Bld) [Volume fraction] 31.0 % Low 35-47 [facility] Comment on above: Performed By: #### C ROSALBA, 31075-9, 25982-2, 63464-9, 74778-4, 87140-4, 2157-6, 38738-5, PINR, CBCA, TSHR #### [facility] ([id number]) [address] [place] [address] 22958 Hemoglobin (Bld) [Mass/Vol] 10.3 g/dL Low 11.7-15.5 [facility] Comment on above: Performed By: #### C MP, 87473-8, 15530-5, 49088-1, 29474-3, 64858-2, 2157-6, 85012-4, PINR, CBCA, TSHR #### [facility] ([id number]) [address] [place] [address] 82129 Lymphocytes (Bld) [#/Vol] 0.9 10*3/uL Low 1.0-3.5 [facility] Comment on above: Performed By: #### C MP, 91282-2, 68320-3, 76504-5, 64358-4, 40395-8, 2157-6, 65349-6, PINR, CBCA, TSHR #### [facility] ([id number]) [address] [place] [address] 56466 Lymphocytes/100 WBC (Bld) 10.7 % Normal [facility] Comment on above: Performed By: #### C MP, 94030-6, 82941-6, 27446-4, 73888-2, 86179-4, 2157-6, 94952-1, PINR, CBCA, TSHR #### [facility] ([id number]) [address] [place] [address] 63741 MCH (RBC) [Entitic mass] 30.7 pg Normal 27-34 [facility] Comment on above: Performed By: #### C MP, 68309-1, 31442-5, 17570-4, 75550-6, 29761-8, 2157-6, 42197-2, PINR, CBCA, TSHR #### [facility] ([id number]) [address] [place] [address] [place] [address] MCHC (RBC) [Mass/Vol] 33.3 g/dL Normal 32-36 [facility] Comment on above: Performed By: #### C MP, 09603-7, 17643-8, 74893-1, 50202-6, 27568-6, 2157-6, 28385-5, PINR, CBCA, TSHR #### [facility] ([id number]) [address] [place] [address], [place] [address] MCV (RBC) [Entitic vol] 92 fL Normal 80-100 [facility] Comment on above: Performed By: #### C MP, 48298-6, 22143-9, 27501-9, 74299-3, 02946-0, 2157-6, 92637-7, PINR, CBCA, TSHR #### [facility] ([id number]) [address] [place] [address] 59378 Monocytes (Bld) [#/Vol] 0.7 10*3/uL Normal 0-0.9 [facility] Comment on above: Performed By: #### C MP, 77855-8, 81719-7, 15450-0, 09459-3, 74506-6, 2157-6, 68078-2, PINR, CBCA, TSHR #### [facility] ([id number]) [address] [place] [address] 34063 Monocytes/100 WBC (Bld) 8.7 % Normal [facility] Comment on above: Performed By: #### C MP, 36449-6, 21305-7, 64334-7, 51196-5, 34481-4, 2157-6, 22876-2, PINR, CBCA, TSHR #### [facility] ([id number]) [address] [place] [address] 46058 Neutrophils/100 WBC (Bld) 79.3 % Normal [facility] Comment on above: Performed By: #### C MP, 21010-6, 87613-2, 42830-9, 40243-5, 67106-7, 2157-6, 51218-2, PINR, CBCA, TSHR #### [facility] ([id number]) [address] [place] [address] 11363 Platelet mean volume (Bld) [Entitic vol] 10.4 fL Normal 7-12 [facility] Comment on above: Performed By: #### C MP, 65874-1, 89802-6, 93419-4, 50321-4, 38462-8, 2157-6, 67912-7, PINR, CBCA, TSHR #### [facility] ([id number]) [address] [place] [address] 42158 Platelets (Bld) [#/Vol] 144 10*3/uL Low 150-450 [facility] Comment on above: Performed By: #### C MP, 24145-9, 33618-5, 87940-9, 79979-5, 95173-2, 2157-6, 19532-5, PINR, CBCA, TSHR #### [facility] ([id number]) [address] [place] [address] 24330 RBC COUNT 3.37 X10E12/L Low 3.80-5.20 [facility] Comment on above: Performed By: #### C ROSALBA, 28542-2, 53009-8, 96592-4, 02573-5, 95177-0, 2157-6, 94210-2, PINR, CBCA, TSHR #### [facility] ([id number]) [address] [place] [address] 19222 WBC (Bld) [#/Vol] 8.1 10*3/uL Normal 4.0-11.0 [facility] Comment on above: Performed By: #### C ROSALBA, 59003-2, 67537-7, 47665-4, 81680-5, 20940-8, 2157-6, 58750-0, PINR, CBCA, TSHR #### [facility] ([id number]) [address] [place] [address] 08304 COMPREHENSIVE METABOLIC PANE Elver 10-17-2023 Albumin [Mass/Vol] 2.9 g/dL Low 3.2-5.3 [facility] Comment on above: Performed By: #### C ROSALBA, 37382-5, 14222-8, 37826-2, 35233-9, 19511-6, 2157-6, 09315-6, PINR, CBCA, TSHR #### [facility] ([id number]) [address] [place] [address] 43761 ALP [Catalytic activity/Vol] 115 U/L Normal 39-130 [facility] Comment on above: Performed By: #### C MP, 67164-2, 05357-4, 68758-6, 04110-7, 24180-6, 2157-6, 61681-1, PINR, CBCA, TSHR #### [facility] ([id number]) [address] [place] [address] 21044 ALT [Catalytic activity/Vol] 18 U/L Normal 0-31 [facility] Comment on above: Performed By: #### C MP, 61991-6, 44471-8, 73161-0, 41277-6, 49480-5, 2157-6, 46606-8, PINR, CBCA, TSHR #### [facility] ([id number]) [address] [place] [address] 45689 Anion gap [Moles/Vol] 17 mmol/L High 5-15 [facility] Comment on above: Performed By: #### C MP, 16152-0, 88667-5, 91050-9, 15978-5, 84211-0, 2157-6, 28341-7, PINR, CBCA, TSHR #### [facility] ([id number]) [address] [place] [address] 31526 AST [Catalytic activity/Vol] 29 U/L Normal 0-41 [facility] Comment on above: Performed By: #### C MP, 93366-4, 94061-4, 89349-1, 91863-2, 86956-6, 2157-6, 91189-8, PINR, CBCA, TSHR #### [facility] ([id number]) [address] [place] [address] 23816 Bilirubin [Mass/Vol] 1.5 mg/dL High 0.3-1.2 [facility] Comment on above: Performed By: #### C MP, 31386-5, 87675-5, 47275-7, 15130-5, 75968-1, 2157-6, 82862-4, PINR, CBCA, TSHR #### [facility] ([id number]) [address] [place] [address] 29858 Calcium [Mass/Vol] 8.0 mg/dL Low 8.5-10.5 [facility] Comment on above: Performed By: #### C MP, 17228-7, 93351-1, 83397-9, 30243-2, 91192-0, 2157-6, 85499-0, PINR, CBCA, TSHR #### [facility] ([id number]) [address] [place] [address] 96428 Chloride [Moles/Vol] 87 mmol/L Low 98-109 [facility] Comment on above: Performed By: #### C MP, 33286-7, 04254-9, 48577-6, 25747-0, 01219-4, 2157-6, 58250-8, PINR, CBCA, TSHR #### [facility] ([id number]) [address] [place] [address] 69598 CO2 [Moles/Vol] 30 mmol/L Normal 22-32 [facility] Comment on above: Performed By: #### C MP, 32119-5, 30808-6, 72395-0, 17428-0, 83443-9, 2157-6, 14069-2, PINR, CBCA, TSHR #### [facility] ([id number]) [address] [place] [address] 60255 Creatinine [Mass/Vol] 2.64 mg/dL High 0.40-1.00 [facility] Comment on above: Result Comment: METH OD TRACEABLE TO IDMS STANDARD Performed By: #### C MP, 26151-3, 62451-3, 70596-4, 51879-8, 21896-2, 2157-6, 57091-8, PINR, CBCA, TSHR #### [facility] ([id number]) [address] [place] [address] 56828 GFR/1.73 sq M.predicted among non-blacks MDRD (S/P/Bld) [Vol rate/Area] 19 mL/min/{1.73_m2} Low >59 [facility] Comment on above: Result Comment: Reported eGFR is based on the CKD-EPI 2020 equation that does not use a race coefficient. Performed By: #### C ROSALBA, 68435-9, 13414-0, 24039-5, 69587-8, 29564-5, 2157-6, 95291-8, PINR, CBCA, TSHR #### [facility] ([id number]) [address] [place] [address] 29269 Glucose [Mass/Vol] 381 mg/dL High 65-99 [facility] Comment on above: Performed By: #### C ROSALBA, 73497-0, 30044-9, 80792-0, 46929-5, 90599-8, 2157-6, 35022-4, PINR, CBCA, TSHR #### [facility] ([id number]) [address] [place] [address] 99616 Potassium [Moles/Vol] 2.1 mmol/L Critically low 3.5-5.0 [facility] Comment on above: Performed By: #### C ROSALBA, 85880-6, 16867-4, 12216-5, 99036-5, 25855-1, 2157-6, 84742-1, PINR, CBCA, TSHR #### [facility] ([id number]) [address] [place] [address] 70486 Protein [Mass/Vol] 7.6 g/dL Normal 6.0-8.0 [facility] Comment on above: Performed By: #### C ROSALBA, 70033-9, 87108-4, 31325-4, 62659-0, 12062-5, 2157-6, 48843-7, PINR, CBCA, TSHR #### [facility] ([id number]) [address] [place] [address] 63797 Sodium [Moles/Vol] 134 mmol/L Normal 134-146 [facility] Comment on above: Performed By: #### C MP, 92188-3, 91228-9, 33725-5, 77715-6, 79819-1, 2157-6, 03841-2, PINR, CBCA, TSHR #### [facility] ([id number]) [address] [place] [address] 44885 Urea nitrogen [Mass/Vol] 144 mg/dL High 5-27 [facility] Comment on above: Performed By: #### C MP, 86379-7, 65786-6, 80744-7, 95822-8, 16836-6, 2157-6, 72846-8, PINR, CBCA, TSHR #### [facility] ([id number]) [address] [place] [address] ABDOMEN AND PELVIS WO CON Ton [...] Gaviria MD on 10/17/2023 5:47 PM Normal [facility] CT BRAIN WO CONTon 4 CT BRAIN [...] Gaviria MD on 10/17/2023 5:29 PM Normal [facility] Creatinine (U) [Mass/Vol]on 10-17-2023 URINE CREATININE,RDM <10.00 Normal [facility] Comment on above: Performed By: #### C , 19814-1, 77683-9, 28926-5, 73708-9, 85313-4, 2157-6, 45625-2, PINR, CBCA, TSHR #### [facility] ([id number]) [address] [place] [address] 06662 Glucose Glucometer (BldC) [M ass/Vol]on 10-17-2023 Glucose [Mass/Vol] 399 mg/dL High 65-99 [facility] Lactate (P stan) [Moles/Vol]o n 10-17-2023 Lactate [Moles/Vol] 2.2 mmol/L High 0.4-2.0 [facility] Comment on above: Performed By: #### C MP, 04386-5, 81483-2, 99322-5, 89423-1, 40834-6, 2157-6, 02237-1, PINR, CBCA, TSHR #### [facility] ([id number]) [address] [place] [address] 38745 LACTATE W/REFLEX 2.5 mmol/L High 0.4-2.0 [facility] Comment on above: Performed By: #### C MP, 24364-3, 06652-4, 46638-8, 82641-9, 37090-7, 2157-6, 75146-7, PINR, CBCA, TSHR #### [facility] ([id number]) [address] [place] [address] MAGNESIUMon 10-17-2023 Magnesium [Mass/Vol] 1.8 mg/dL Normal 1.8-2.6 [facility] Comment on above: Performed By: #### C ROSALBA, 24326-2, 12131-3, 59927-6, 74712-6, 12139-4, 2156-6, 72319-4, PINR, CBCA, TSHR #### [facility] ([id number]) [address] [place] [address] 46207 MICROALBUMIN - ALBUMIN:CREAT ININE URINE RATIOon 10-17-2023 ALB/CREAT RATIO 5512.4 mg/g creat High 0.0-30.0 [facility] Comment on above: Performed By: #### C ROSALBA, 25333-0, 91967-8, 46311-3, 88512-9, 51235-7, 2156-6, 97758-0, PINR, CBCA, TSHR #### [facility] ([id number]) [address] [place] [address] [place] [address] Albumin DL <= 20 mg/L (U) [Mass/Vol] 15.6 mg/dL High 0.0-1.9 [facility] Comment on above: Performed By: #### C MP, 65173-4, 68999-7, 04338-9, 63216-4, 67563-9, 2157-6, 42605-9, PINR, CBCA, TSHR #### [facility] ([id number]) [address] [place] [address] 76644 URINE CREAT 2.83 mg/dL Normal [facility] Comment on above: Performed By: #### C MP, 90108-9, 71392-7, 92694-4, 12303-1, 68247-6, 2157-6, 83438-5, PINR, CBCA, TSHR #### [facility] ([id number]) [address] [place] [address] 36484 Natriuretic peptide B [Mass/ Vol]on 10-17-2023 Natriuretic peptide B (Bld) [Mass/Vol] 1110 pg/mL High <100.0 [facility] Comment on above: Performed By: #### C MP, 50566-4, 48459-1, 27943-1, 28913-0, 72091-8, 2157-6, 44588-4, PINR, CBCA, TSHR #### [facility] ([id number]) [address] [place] [address] 11238 PROTIME AND INRon 10-17-2023 INR Coag (PPP) [Relative time] 1.3 {INR} High 0.8-1.1 [facility] Comment on above: Performed By: #### C MP, 82579-7, 54442-5, 08003-1, 30418-5, 40927-9, 2157-6, 52691-9, PINR, CBCA, TSHR #### [facility] ([id number]) [address] [place] [address] 09891 PT Coag (PPP) [Time] 14.8 s High 9.8-13.2 [facility] Comment on above: Result Comment: NEW REFERENCE RANGE Performed By: #### C MP, 35863-4, 38355-9, 04874-2, 50335-3, 57645-4, 2157-6, 66620-8, PINR, CBCA, TSHR #### [facility] ([id number]) [address] [place] [address] 04362 SARS/FLU A+B/RSV by NAAT/Mol ecularon 10-17-2023 SARS/FLU [...] operators who are performing tests using either [employer] or [employer] systems and is limited to laboratories that [...] repeat. Fact Sheet for Healthcare Providers: https://www.fda.gov/media /879426/download Fact Sheet for Patients: https://www.fda.gov/media /199608/download Normal [facility] Comment on above: Performed By: #### C , 86682-8, 16665-8, 17826-9, 36655-6, 31188-8, 2157-6, 62747-8, PINR, CBCA, TSHR #### [facility] ([id number]) [address] [place] [address] 40829 TROPONIN Ion 10-17-2023 Troponin I.cardiac [Mass/Vol] 0.08 ng/mL High 0.00-0.04 [facility] Comment on above: Result Comment: Concentrations greater than or equal to 0.05 ng/ml are considered elevated. Elevations of Troponin may be due to causes other than myocardial ischemia. Recommend serial Troponin testing be performed. Performed By: #### C MP, 01231-7, 27580-2, 28506-0, 09430-0, 46765-5, 2157-6, 52569-4, PINR, CBCA, TSHR #### [facility] ([id number]) [address] [place] [address] 99446 Troponin I.cardiac [Mass/Vol] 0.09 ng/mL High 0.00-0.04 [facility] Comment on above: Result Comment: Concentrations greater than or equal to 0.05 ng/ml are considered elevated. Elevations of Troponin may be due to causes other than myocardial ischemia. Recommend serial Troponin testing be performed. Performed By: #### C MP, 36060-5, 22838-8, 99014-8, 00676-4, 57814-7, 2157-6, 52965-1, PINR, CBCA, TSHR #### [facility] ([id number]) [address] [place] [address] 22630 URINALYSISon 10-17-2023 Bilirubin Ql (U) Negative Normal NEG [facility] Comment on above: Performed By: #### C MP, 15635-2, 20829-0, 27952-0, 99852-8, 12903-2, 2157-6, 20568-7, PINR, CBCA, TSHR #### [facility] ([id number]) [address] [place] [address] [place] [address] BLOOD/HGB SMALL Abnormal NEG [facility] Comment on above: Performed By: #### C MP, 45693-3, 50349-4, 60597-3, 03482-0, 62760-0, 2157-6, 52579-4, PINR, CBCA, TSHR #### [facility] ([id number]) [address] [place] [address], [place] [address] Color (U) YELLOW Normal YELLOW [facility] Comment on above: Performed By: #### C MP, 91805-1, 49305-3, 21386-9, 62978-8, 23007-9, 2157-6, 70065-6, PINR, CBCA, TSHR #### [facility] ([id number]) [address] [place] [address], [place] [address] Glucose Ql (U) Negative Normal NEG [facility] Comment on above: Performed By: #### C MP, 73945-1, 02180-9, 75278-0, 49582-6, 97890-6, 2157-6, 62195-7, PINR, CBCA, TSHR #### [facility] ([id number]) [address] [place] [address], [place] [address] Ketones Ql (U) Negative Normal NEG [facility] Comment on above: Performed By: #### C MP, 32920-1, 38317-2, 64017-4, 29156-6, 59647-4, 2157-6, 71338-9, PINR, CBCA, TSHR #### [facility] ([id number]) [address] [place] [address] 04849 Leukocyte esterase Test strip Ql (U) SMALL Abnormal NEG [facility] Comment on above: Performed By: #### C MP, 23272-9, 44174-1, 60206-6, 83401-5, 19720-4, 2157-6, 47828-8, PINR, CBCA, TSHR #### [facility] ([id number]) [address] [place] [address] 31962 Nitrite Ql (U) Positive Abnormal NEG [facility] Comment on above: Performed By: #### C MP, 49739-6, 91554-7, 30418-2, 65422-8, 82175-0, 2157-6, 08734-9, PINR, CBCA, TSHR #### [facility] ([id number]) [address] [place] [address] 38339 pH (U) 8.0 [pH] Normal 5.0-8.5 [facility] Comment on above: Performed By: #### C MP, 52420-6, 99927-4, 46126-2, 87808-6, 52821-9, 2157-6, 21245-2, PINR, CBCA, TSHR #### [facility] ([id number]) [address] [place] [address] 75786 Protein Ql (U) 30 mg/dL Abnormal NEG [facility] Comment on above: Performed By: #### C MP, 31524-3, 82847-5, 02997-6, 72279-7, 29210-0, 2157-6, 25771-2, PINR, CBCA, TSHR #### [facility] ([id number]) [address] [place] [address] 48456 R.B.CELLS 0 to 1 Normal 0-5 [facility] Comment on above: Performed By: #### C MP, 75287-0, 50915-6, 07407-0, 02254-1, 44118-6, 2157-6, 84692-6, PINR, CBCA, TSHR #### [facility] ([id number]) [address] [place] [address] 68305 Specific gravity (U) [Rel density] 1.010 Normal 1.003-1.035 [facility] Comment on above: Performed By: #### C MP, 20500-8, 54635-1, 25724-3, 05554-9, 83180-4, 2157-6, 42285-3, PINR, CBCA, TSHR #### [facility] ([id number]) [address] [place] [address] 55496 SQUAMOUS EPITHELIUM 1 to 3 Normal 0-5 [facility] Comment on above: Performed By: #### C MP, 91999-0, 20874-4, 29845-4, 68553-3, 09295-5, 2157-6, 58154-4, PINR, CBCA, TSHR #### [facility] ([id number]) [address] [place] [address] 29767 TURBIDITY HAZY Abnormal CLEAR [facility] Comment on above: Performed By: #### C MP, 47681-8, 50807-3, 22570-3, 47457-3, 14718-0, 2157-6, 91369-7, PINR, CBCA, TSHR #### [facility] ([id number]) [address] [place] [address] 02950 Urobilinogen Qn (U) 0.2 {Aden'U}/dL Normal <1.1 [facility] Comment on above: Performed By: #### C MP, 33986-0, 68036-6, 90544-2, 31318-9, 23085-2, 2157-6, 62677-9, PINR, CBCA, TSHR #### [facility] ([id number]) [address] [place] [address] 63685 W.B.CELLS 20 to 25 Normal 0-5 [facility] Comment on above: Performed By: #### C ROSALBA, 43661-0, 37797-8, 57327-5, 08280-2, 48343-2, 2157-6, 04752-9, PINR, CBCA, TSHR #### [facility] ([id number]) [address] [place] [address] 52571 URINE CULTUREon 10-17-2023 Bacteria identified Cx Nom [...] <=1 F TRIMETH/SULFAMETHOXAZOLE S <=1/19 F Susceptible [facility] Comment on above: Performed By: #### C ROSALBA, 62462-5, 37384-8, 47422-0, 15858-1, 24321-4, 2157-6, 16042-4, PINR, CBCA, TSHR #### [facility] ([id number]) [address] [place] [address] 15035 URINE SODIUM,RANDOMon 2023 Sodium (U) [Moles/Vol] 95 mmol/L Normal [facility] Comment on above: Performed By: #### C MP, 35909-9, 79639-1, 08707-0, 20033-4, 75754-1, 2157-6, 29867-5, PINR, CBCA, TSHR #### [facility] ([id number]) [address] [place] [address] 83137 URN MACROSCOPIC NURon 2023 BILIRUBIN KALINA Negative Normal NEG [facility] Comment on above: Performed By: #### C MP, 85576-1, 72891-7, 03958-9, 98785-0, 05265-8, 2157-6, 91586-7, PINR, CBCA, TSHR #### [facility] ([id number]) [address] [place] [address] [place] [address] BLOOD/HGB KALINA Small Abnormal NEG [facility] Comment on above: Performed By: #### C MP, 83060-8, 10319-8, 43982-5, 60123-3, 76400-1, 2157-6, 50434-1, PINR, CBCA, TSHR #### [facility] ([id number]) [address] [place] [address] [place] [address] GLUCOSE KALINA Negative Normal NEG [facility] Comment on above: Performed By: #### C MP, 53653-8, 76161-1, 62158-4, 32259-7, 91465-4, 2157-6, 24312-5, PINR, CBCA, TSHR #### [facility] ([id number]) [address] [place] [address], [place] [address] KETONES KALINA Negative Normal NEG [facility] Comment on above: Performed By: #### C MP, 35582-3, 53421-9, 14074-9, 73771-9, 73101-6, 2157-6, 29565-2, PINR, CBCA, TSHR #### [facility] ([id number]) [address] [place] [address] 48561 LEUKOCYTE ESTERASE KALINA Small Abnormal NEG [facility] Comment on above: Performed By: #### C MP, 33668-8, 68327-2, 09675-5, 96943-6, 34052-1, 2157-6, 98260-8, PINR, CBCA, TSHR #### [facility] ([id number]) [address] [place] [address] 19831 NITRITE KALINA Positive Abnormal NEG [facility] Comment on above: Performed By: #### C MP, 81227-7, 19017-6, 63696-0, 05963-7, 47901-6, 2157-6, 22889-7, PINR, CBCA, TSHR #### [facility] ([id number]) [address] [place] [address] 18872 PH KALINA 8.0 Normal 5.0-8.5 [facility] Comment on above: Performed By: #### C MP, 76655-5, 20271-2, 32659-8, 24351-2, 03434-4, 2157-6, 13690-1, PINR, CBCA, TSHR #### [facility] ([id number]) [address] [place] [address] 18494 PROTEIN KALINA 30 mg/dL Abnormal NEG [facility] Comment on above: Performed By: #### C MP, 13824-0, 84033-5, 67872-4, 85739-9, 88158-8, 2157-6, 65310-7, PINR, CBCA, TSHR #### [facility] ([id number]) [address] [place] [address] 63581 SPECIFIC GRAVITY KALINA 1.020 Normal 1.003-1.035 [facility] Comment on above: Performed By: #### C MP, 48589-3, 02631-3, 24387-9, 44891-8, 40846-8, 2157-6, 54886-0, PINR, CBCA, TSHR #### [facility] ([id number]) [address] [place] [address] 26259 UROBILINOGEN KALINA 0.2 eu/dL Normal <1.1 [facility] Comment on above: Performed By: #### C MP, 11397-7, 32218-4, 26021-5, 11580-4, 33191-9, 2157-6, 14709-5, PINR, CBCA, TSHR #### [facility] ([id number]) [address] [place] [address] 28141 aPTT Coag (PPP) [Time]on aPTT Coag (Bld) [Time] 23 s Low 26-37 [facility] Comment on above: Result Comment: NEW REFERENCE RANGE Performed By: #### C MP, 23615-3, 66141-2, 58975-7, 11120-7, 74222-2, 2157-6, 87815-1, PINR, CBCA, TSHR #### [facility] ([id number]) [address] [place] [address] 49054 Basic Metabolic Panelon Anion gap [Moles/Vol] 16 mmol/L High 5 - 15 mmol/L [facility] Calcium [Mass/Vol] 9.0 mg/dL 8.5 - 10. 5 mg/dL [facility] Chloride [Moles/Vol] 91 mmol/L Low 98 - 109 mmol/L [facility] CO2 [Moles/Vol] 41 mmol/L High 22 - 32 mmol/L [facility] Creatinine [Mass/Vol] 2.31 mg/dL High 0.40 - 1.00 mg/dL [facility] eGFR (CKD-EPI)non-race dependent 23 Low - PINF [facility] Glucose [Mass/Vol] 135 mg/dL High 65 - 99 mg/dL [facility] Interpretation and review of laboratory results Abnormal [facility] Potassium [Moles/Vol] 3.3 mmol/L Low 3.5 - 5.0 mmol/L [facility] Sodium [Moles/Vol] 148 mmol/L High 134 - 146 mmol/L [facility] Urea nitrogen [Mass/Vol] 73 mg/dL High 5 - 27 mg/dL [facility] Blood gas, venouson 10-05-19 24 Arterial patency Wrist artery --pre arterial puncture [facility] Base excess Calc (Bld) [Moles/Vol] 17.0 mmol/L High [facility] CO2 (BldV) [Partial pressure] 54.2 mm[Hg] High [facility] HCO3 (Bld) [Moles/Vol] 43.4 mmol/L High [facility] Interpretation and review of laboratory results Abnormal [facility] Oxygen (BldV) [Partial pressure] 25 mm[Hg] Low [facility] Oxygen therapy source and amount [CARE] RoomAir [facility] Oxygen/Inspired gas setting [Volume Fraction] Ventilator 21 % [facility] pH (BldV) 7.511 [pH] High 7.320 - 7.420 [facility] SaO2% Calculated from oxygen partial pressure (BldV) [Mass fraction] 51.0 % Low 80.0 - PINF % [facility] Specimen site Narrative N/A [facility] Specimen type Nom (Spec) VENOUS [facility] CBC auto differentialon Basophils (Bld) [#/Vol] 0.0 10*3/uL [facility] Basophils/100 WBC (Bld) 0.7 % [facility] Eosinophils (Bld) [#/Vol] 0.1 10*3/uL [facility] Eosinophils/100 WBC (Bld) 1.5 % [facility] Erythrocyte distribution width (RBC) [Ratio] 19.9 % High 11.5 - 15.0 % [facility] Hematocrit (Bld) [Volume fraction] 31.2 % Low 35 - 47 % [facility] Hemoglobin (Bld) [Mass/Vol] 9.9 g/dL Low 11.7 - 15.5 g/dL [facility] Interpretation and review of laboratory results Abnormal [facility] Lymphocytes (Bld) [#/Vol] 0.9 10*3/uL Low [facility] Lymphocytes/100 WBC (Bld) 15.9 % [facility] MCH (RBC) [Entitic mass] 30.7 pg 27 - 34 pg [facility] MCHC (RBC) [Mass/Vol] 31.7 g/dL Low 32 - 36 g/dL [facility] MCV (RBC) [Entitic vol] 97 fL 80 - 100 fL [facility] Monocytes (Bld) [#/Vol] 0.8 10*3/uL [facility] Monocytes/100 WBC (Bld) 14.0 % [facility] Neutrophils (Bld) [#/Vol] 3.7 10*3/uL [facility] Neutrophils/100 WBC (Bld) 67.9 % [facility] Platelet mean volume (Bld) [Entitic vol] 9.3 fL 7 - 12 fL [facility] Platelets (Bld) [#/Vol] 150 10*3/uL [facility] RBC (Bld) [#/Vol] 3.22 10*6/uL Low [facility] WBC corrected for nucl RBC Auto (Bld) [#/Vol] 5.4 [facility] Glucose Glucometer (BldC) [M ass/Vol]on 10-05-2023 Glucose [Mass/Vol] 150 mg/dL High 65 - 99 mg/dL [facility] Interpretation and review of laboratory results Abnormal [facility] Glucose [Mass/Vol] 146 mg/dL High 65 - 99 mg/dL [facility] Interpretation and review of laboratory results Abnormal [facility] Magnesiumon 10-05-2023 Magnesium [Mass/Vol] 2.0 mg/dL 1.8 - 2.6 mg/dL [facility] No Panel Informationon 10-05 [facility] Protime & INRon 10-05-2023 INR Coag (PPP) [Relative time] 1.6 {INR} High [facility] Interpretation and review of laboratory results Abnormal [facility] PT Coag (PPP) [Time] 18.2 s High [facility] XR Chest Single viewon 10-05 [facility] Radiology Study observation (narrative) [facility] Basic Metabolic Panelon Anion gap [Moles/Vol] 16 mmol/L High 5 - 15 mmol/L [facility] Calcium [Mass/Vol] 8.6 mg/dL 8.5 - 10. 5 mg/dL [facility] Chloride [Moles/Vol] 91 mmol/L Low 98 - 109 mmol/L [facility] CO2 [Moles/Vol] 38 mmol/L High 22 - 32 mmol/L [facility] Creatinine [Mass/Vol] 2.18 mg/dL High 0.40 - 1.00 mg/dL [facility] eGFR (CKD-EPI)non-race dependent 24 Low - PINF [facility] Glucose [Mass/Vol] 103 mg/dL High 65 - 99 mg/dL [facility] Interpretation and review of laboratory results Abnormal [facility] Potassium [Moles/Vol] 3.5 mmol/L 3.5 - 5.0 mmol/L [facility] Sodium [Moles/Vol] 145 mmol/L 134 - 146 mmol/L [facility] Urea nitrogen [Mass/Vol] 73 mg/dL High 5 - 27 mg/dL [facility] CBC auto differentialon Basophils (Bld) [#/Vol] 0.1 10*3/uL [facility] Basophils/100 WBC (Bld) 1.0 % [facility] Eosinophils (Bld) [#/Vol] 0.1 10*3/uL [facility] Eosinophils/100 WBC (Bld) 2.1 % [facility] Erythrocyte distribution width (RBC) [Ratio] 20.4 % High 11.5 - 15.0 % [facility] Hematocrit (Bld) [Volume fraction] 28.9 % Low 35 - 47 % [facility] Hemoglobin (Bld) [Mass/Vol] 9.5 g/dL Low 11.7 - 15.5 g/dL [facility] Interpretation and review of laboratory results Abnormal [facility] Lymphocytes (Bld) [#/Vol] 0.7 10*3/uL Low [facility] Lymphocytes/100 WBC (Bld) 12.7 % [facility] MCH (RBC) [Entitic mass] 31.3 pg 27 - 34 pg [facility] MCHC (RBC) [Mass/Vol] 33.0 g/dL 32 - 36 g/dL [facility] MCV (RBC) [Entitic vol] 95 fL 80 - 100 fL [facility] Monocytes (Bld) [#/Vol] 0.6 10*3/uL [facility] Monocytes/100 WBC (Bld) 10.7 % [facility] Neutrophils (Bld) [#/Vol] 4.3 10*3/uL [facility] Neutrophils/100 WBC (Bld) 73.5 % [facility] Platelet mean volume (Bld) [Entitic vol] 9.4 fL 7 - 12 fL [facility] Platelets (Bld) [#/Vol] 155 10*3/uL [facility] RBC (Bld) [#/Vol] 3.05 10*6/uL Low [facility] WBC corrected for nucl RBC Auto (Bld) [#/Vol] 5.9 [facility] Glucose Glucometer (BldC) [M ass/Vol]on 10-04-2023 Glucose [Mass/Vol] 155 mg/dL High 65 - 99 mg/dL [facility] Interpretation and review of laboratory results Abnormal [facility] Glucose [Mass/Vol] 119 mg/dL High 65 - 99 mg/dL [facility] Interpretation and review of laboratory results Abnormal [facility] Glucose [Mass/Vol] 127 mg/dL High 65 - 99 mg/dL [facility] Interpretation and review of laboratory results Abnormal [facility] Glucose [Mass/Vol] 108 mg/dL High 65 - 99 mg/dL [facility] Interpretation and review of laboratory results Abnormal [facility] Magnesiumon 10-04-2023 Magnesium [Mass/Vol] 1.9 mg/dL 1.8 - 2.6 mg/dL [facility] No Panel Informationon 10-04 [facility] Protime & INRon 10-04-2023 INR Coag (PPP) [Relative time] 1.6 {INR} High [facility] Interpretation and review of laboratory results Abnormal [facility] PT Coag (PPP) [Time] 18.7 s High [facility] Basic Metabolic Panelon Anion gap [Moles/Vol] 12 mmol/L 5 - 15 mmol/L [facility] Calcium [Mass/Vol] 8.2 mg/dL Low 8.5 - 10. 5 mg/dL [facility] Chloride [Moles/Vol] 91 mmol/L Low 98 - 109 mmol/L [facility] CO2 [Moles/Vol] 37 mmol/L High 22 - 32 mmol/L [facility] Creatinine [Mass/Vol] 2.40 mg/dL High 0.40 - 1.00 mg/dL [facility] eGFR (CKD-EPI)non-race dependent 22 Low - PINF [facility] Glucose [Mass/Vol] 120 mg/dL High 65 - 99 mg/dL [facility] Interpretation and review of laboratory results Abnormal [facility] Potassium [Moles/Vol] 3.2 mmol/L Low 3.5 - 5.0 mmol/L [facility] Sodium [Moles/Vol] 140 mmol/L 134 - 146 mmol/L [facility] Urea nitrogen [Mass/Vol] 78 mg/dL High 5 - 27 mg/dL [facility] Glucose Glucometer (BldC) [M ass/Vol]on 10-03-2023 Glucose [Mass/Vol] 113 mg/dL High 65 - 99 mg/dL [facility] Interpretation and review of laboratory results Abnormal [facility] Glucose [Mass/Vol] 119 mg/dL High 65 - 99 mg/dL [facility] Interpretation and review of laboratory results Abnormal [facility] Glucose [Mass/Vol] 138 mg/dL High 65 - 99 mg/dL [facility] Interpretation and review of laboratory results Abnormal [facility] Glucose [Mass/Vol] 129 mg/dL High 65 - 99 mg/dL [facility] Interpretation and review of laboratory results Abnormal [facility] Hemoglobinon 10-03-2023 Hemoglobin (Bld) [Mass/Vol] 8.0 g/dL Low 11.7 - 15.5 g/dL [facility] No Panel Informationon 10-03 Interpretation and review of laboratory results Abnormal [facility] Platelet counton 10-03-2023 Platelet mean volume (Bld) [Entitic vol] 9.8 fL 7 - 12 fL [facility] Platelets (Bld) [#/Vol] 131 10*3/uL Low [facility] Potassiumon 10-03-2023 Potassium [Moles/Vol] 3.4 mmol/L Low 3.5 - 5.0 mmol/L [facility] Potassium [Moles/Vol]on Interpretation and review of laboratory results Abnormal [facility] Protime & INRon 10-03-2023 INR Coag (PPP) [Relative time] 1.8 {INR} High [facility] Interpretation and review of laboratory results Abnormal [facility] PT Coag (PPP) [Time] 20.2 s High [facility] Anti XA unfractionated hepar inon 10-02-2023 Heparin unfractionated Chromogenic method Qn (PPP) 0.36 [facility] Heparin unfractionated Chromogenic method Qn (PPP) 0.31 [facility] Bacteria identified Aer cx N om (Bld)on 10-02-2023 Service comment (Unsp spec) [Interp] ONLY AEROBIC BOTTLE RECEIVED, SUBOPTIMAL VOLUME OF BLOOD COLLECTED, RESULTS MAY BE AFFECTED [facility] Service comment (Unsp spec) [Interp] NO GROWTH 5 DAYS [facility] CBC auto differentialon Basophils (Bld) [#/Vol] 0.1 10*3/uL [facility] Basophils/100 WBC (Bld) 0.8 % [facility] Eosinophils (Bld) [#/Vol] 0.1 10*3/uL [facility] Eosinophils/100 WBC (Bld) 1.9 % [facility] Erythrocyte distribution width (RBC) [Ratio] 20.4 % High 11.5 - 15.0 % [facility] Hematocrit (Bld) [Volume fraction] 24.9 % Low 35 - 47 % [facility] Hemoglobin (Bld) [Mass/Vol] 8.1 g/dL Low 11.7 - 15.5 g/dL [facility] Interpretation and review of laboratory results Abnormal [facility] Lymphocytes (Bld) [#/Vol] 0.8 10*3/uL Low [facility] Lymphocytes/100 WBC (Bld) 11.0 % [facility] MCH (RBC) [Entitic mass] 31.2 pg 27 - 34 pg [facility] MCHC (RBC) [Mass/Vol] 32.7 g/dL 32 - 36 g/dL [facility] MCV (RBC) [Entitic vol] 96 fL 80 - 100 fL [facility] Monocytes (Bld) [#/Vol] 0.6 10*3/uL [facility] Monocytes/100 WBC (Bld) 8.5 % [facility] Neutrophils (Bld) [#/Vol] 5.4 10*3/uL [facility] Neutrophils/100 WBC (Bld) 77.8 % [facility] Platelet mean volume (Bld) [Entitic vol] 9.8 fL 7 - 12 fL [facility] Platelets (Bld) [#/Vol] 132 10*3/uL Low [facility] RBC (Bld) [#/Vol] 2.60 10*6/uL Low [facility] WBC corrected for nucl RBC Auto (Bld) [#/Vol] 6.9 [facility] Comprehensive metabolic pane elver 10-02-2023 Albumin [Mass/Vol] 3.5 g/dL 3.2 - 5.3 g/dL [facility] ALP [Catalytic activity/Vol] 80 U/L 39 - 130 U/L [facility] ALT No additional P-5'-P [Catalytic activity/Vol] 9 U/L 0 - 31 U/L [facility] Anion gap [Moles/Vol] 14 mmol/L 5 - 15 mmol/L [facility] AST [Catalytic activity/Vol] 16 U/L 0 - 41 U/L [facility] Bilirubin [Mass/Vol] 1.2 mg/dL 0.3 - 1.2 mg/dL [facility] Calcium [Mass/Vol] 8.2 mg/dL Low 8.5 - 10. 5 mg/dL [facility] Chloride [Moles/Vol] 93 mmol/L Low 98 - 109 mmol/L [facility] CO2 [Moles/Vol] 34 mmol/L High 22 - 32 mmol/L [facility] Creatinine [Mass/Vol] 2.42 mg/dL High 0.40 - 1.00 mg/dL [facility] eGFR (CKD-EPI)non-race dependent 22 Low - PINF [facility] Glucose [Mass/Vol] 169 mg/dL High 65 - 99 mg/dL [facility] Interpretation and review of laboratory results Abnormal [facility] Potassium [Moles/Vol] 3.7 mmol/L 3.5 - 5.0 mmol/L [facility] Protein [Mass/Vol] 6.4 g/dL 6.0 - 8.0 g/dL [facility] Sodium [Moles/Vol] 141 mmol/L 134 - 146 mmol/L [facility] Urea nitrogen [Mass/Vol] 77 mg/dL High 5 - 27 mg/dL [facility] Digoxin [Mass/Vol]on Interpretation and review of laboratory results Abnormal [facility] Digoxin levelon 10-02-2023 Digoxin [Mass/Vol] 0.7 ng/mL Low 0.8 - 2.0 ng/mL [facility] Glucose Glucometer (BldC) [M ass/Vol]on 10-02-2023 Glucose [Mass/Vol] 143 mg/dL High 65 - 99 mg/dL [facility] Interpretation and review of laboratory results Abnormal [facility] Glucose [Mass/Vol] 171 mg/dL High 65 - 99 mg/dL [facility] Interpretation and review of laboratory results Abnormal [facility] Glucose [Mass/Vol] 207 mg/dL High 65 - 99 mg/dL [facility] Interpretation and review of laboratory results Abnormal [facility] Glucose [Mass/Vol] 177 mg/dL High 65 - 99 mg/dL [facility] Interpretation and review of laboratory results Abnormal [facility] Heparin unfractionated Chrom ogenic method Qn (PPP)on 10-02-2023 [facility] Magnesiumon 10-02-2023 Magnesium [Mass/Vol] 2.2 mg/dL 1.8 - 2.6 mg/dL [facility] No Panel Informationon 10-02 [facility] Phosphoruson 10-02-2023 Phosphate [Mass/Vol] 2.8 mg/dL 2.4 - 4.9 mg/dL [facility] Protime & INRon 10-02-2023 INR Coag (PPP) [Relative time] 1.8 {INR} High [facility] Interpretation and review of laboratory results Abnormal [facility] PT Coag (PPP) [Time] 21.0 s High [facility] APTTon 10-01-2023 aPTT Coag (PPP) [Time] 28 s [facility] CBC auto differentialon Basophils (Bld) [#/Vol] 0.0 10*3/uL [facility] Basophils/100 WBC (Bld) 0.6 % [facility] Eosinophils (Bld) [#/Vol] 0.2 10*3/uL [facility] Eosinophils/100 WBC (Bld) 2.0 % [facility] Erythrocyte distribution width (RBC) [Ratio] 21.1 % High 11.5 - 15.0 % [facility] Hematocrit (Bld) [Volume fraction] 24.0 % Low 35 - 47 % [facility] Hemoglobin (Bld) [Mass/Vol] 8.0 g/dL Low 11.7 - 15.5 g/dL [facility] Interpretation and review of laboratory results Abnormal [facility] Lymphocytes (Bld) [#/Vol] 1.0 10*3/uL [facility] Lymphocytes/100 WBC (Bld) 11.8 % [facility] MCH (RBC) [Entitic mass] 31.4 pg 27 - 34 pg [facility] MCHC (RBC) [Mass/Vol] 33.1 g/dL 32 - 36 g/dL [facility] MCV (RBC) [Entitic vol] 95 fL 80 - 100 fL [facility] Monocytes (Bld) [#/Vol] 0.8 10*3/uL [facility] Monocytes/100 WBC (Bld) 9.2 % [facility] Neutrophils (Bld) [#/Vol] 6.4 10*3/uL [facility] Neutrophils/100 WBC (Bld) 76.4 % [facility] Platelet mean volume (Bld) [Entitic vol] 9.6 fL 7 - 12 fL [facility] Platelets (Bld) [#/Vol] 135 10*3/uL Low [facility] RBC (Bld) [#/Vol] 2.53 10*6/uL Low [facility] WBC corrected for nucl RBC Auto (Bld) [#/Vol] 8.4 [facility] Comprehensive metabolic pane elver 10-01-2023 Albumin [Mass/Vol] 3.5 g/dL 3.2 - 5.3 g/dL [facility] ALP [Catalytic activity/Vol] 83 U/L 39 - 130 U/L [facility] ALT No additional P-5'-P [Catalytic activity/Vol] 11 U/L 0 - 31 U/L [facility] Anion gap [Moles/Vol] 10 mmol/L 5 - 15 mmol/L [facility] AST [Catalytic activity/Vol] 18 U/L 0 - 41 U/L [facility] Bilirubin [Mass/Vol] 1.0 mg/dL 0.3 - 1.2 mg/dL [facility] Calcium [Mass/Vol] 8.4 mg/dL Low 8.5 - 10. 5 mg/dL [facility] Chloride [Moles/Vol] 97 mmol/L Low 98 - 109 mmol/L [facility] CO2 [Moles/Vol] 36 mmol/L High 22 - 32 mmol/L [facility] Creatinine [Mass/Vol] 2.52 mg/dL High 0.40 - 1.00 mg/dL [facility] eGFR (CKD-EPI)non-race dependent 20 Low - PINF [facility] Glucose [Mass/Vol] 142 mg/dL High 65 - 99 mg/dL [facility] Interpretation and review of laboratory results Abnormal [facility] Potassium [Moles/Vol] 3.9 mmol/L 3.5 - 5.0 mmol/L [facility] Protein [Mass/Vol] 6.5 g/dL 6.0 - 8.0 g/dL [facility] Sodium [Moles/Vol] 143 mmol/L 134 - 146 mmol/L [facility] Urea nitrogen [Mass/Vol] 77 mg/dL High 5 - 27 mg/dL [facility] Glucose Glucometer (BldC) [M ass/Vol]on 10-01-2023 Glucose [Mass/Vol] 191 mg/dL High 65 - 99 mg/dL [facility] Interpretation and review of laboratory results Abnormal [facility] Glucose [Mass/Vol] 183 mg/dL High 65 - 99 mg/dL [facility] Interpretation and review of laboratory results Abnormal [facility] Glucose [Mass/Vol] 176 mg/dL High 65 - 99 mg/dL [facility] Interpretation and review of laboratory results Abnormal [facility] Glucose [Mass/Vol] 146 mg/dL High 65 - 99 mg/dL [facility] Interpretation and review of laboratory results Abnormal [facility] Magnesiumon 10-01-2023 Magnesium [Mass/Vol] 2.5 mg/dL 1.8 - 2.6 mg/dL [facility] No Panel Informationon 10-01 [facility] Phosphoruson 10-01-2023 Phosphate [Mass/Vol] 2.9 mg/dL 2.4 - 4.9 mg/dL [facility] Platelet counton 10-01-2023 Interpretation and review of laboratory results Abnormal [facility] Platelet mean volume (Bld) [Entitic vol] 9.8 fL 7 - 12 fL [facility] Platelets (Bld) [#/Vol] 139 10*3/uL Low [facility] Protime & INRon 10-01-2023 INR Coag (PPP) [Relative time] 1.7 {INR} High [facility] Interpretation and review of laboratory results Abnormal [facility] PT Coag (PPP) [Time] 19.4 s High [facility] INR Coag (PPP) [Relative time] 1.6 {INR} High [facility] Interpretation and review of laboratory results Abnormal [facility] PT Coag (PPP) [Time] 18.3 s High [facility] CBC auto differentialon Basophils (Bld) [#/Vol] 0.0 10*3/uL [facility] Basophils/100 WBC (Bld) 0.3 % [facility] Eosinophils (Bld) [#/Vol] 0.2 10*3/uL [facility] Eosinophils/100 WBC (Bld) 1.7 % [facility] Erythrocyte distribution width (RBC) [Ratio] 20.2 % High 11.5 - 15.0 % [facility] Hematocrit (Bld) [Volume fraction] 22.3 % Low 35 - 47 % [facility] Hemoglobin (Bld) [Mass/Vol] 7.4 g/dL Low 11.7 - 15.5 g/dL [facility] Interpretation and review of laboratory results Abnormal [facility] Lymphocytes (Bld) [#/Vol] 0.8 10*3/uL Low [facility] Lymphocytes/100 WBC (Bld) 7.9 % [facility] MCH (RBC) [Entitic mass] 31.6 pg 27 - 34 pg [facility] MCHC (RBC) [Mass/Vol] 33.2 g/dL 32 - 36 g/dL [facility] MCV (RBC) [Entitic vol] 95 fL 80 - 100 fL [facility] Monocytes (Bld) [#/Vol] 0.8 10*3/uL [facility] Monocytes/100 WBC (Bld) 8.7 % [facility] Neutrophils (Bld) [#/Vol] 7.8 10*3/uL High [facility] Neutrophils/100 WBC (Bld) 81.4 % [facility] Platelet mean volume (Bld) [Entitic vol] 9.7 fL 7 - 12 fL [facility] Platelets (Bld) [#/Vol] 124 10*3/uL Low [facility] RBC (Bld) [#/Vol] 2.35 10*6/uL Low [facility] WBC corrected for nucl RBC Auto (Bld) [#/Vol] 9.5 [facility] Comprehensive metabolic pane elver 09-30-2023 Albumin [Mass/Vol] 3.6 g/dL 3.2 - 5.3 g/dL [facility] ALP [Catalytic activity/Vol] 87 U/L 39 - 130 U/L [facility] ALT No additional P-5'-P [Catalytic activity/Vol] 14 U/L 0 - 31 U/L [facility] Anion gap [Moles/Vol] 12 mmol/L 5 - 15 mmol/L [facility] AST [Catalytic activity/Vol] 15 U/L 0 - 41 U/L [facility] Bilirubin [Mass/Vol] 0.7 mg/dL 0.3 - 1.2 mg/dL [facility] Calcium [Mass/Vol] 8.2 mg/dL Low 8.5 - 10. 5 mg/dL [facility] Chloride [Moles/Vol] 101 mmol/L 98 - 109 mmol/L [facility] CO2 [Moles/Vol] 34 mmol/L High 22 - 32 mmol/L [facility] Creatinine [Mass/Vol] 2.72 mg/dL High 0.40 - 1.00 mg/dL [facility] eGFR (CKD-EPI)non-race dependent 19 Low - PINF [facility] Glucose [Mass/Vol] 153 mg/dL High 65 - 99 mg/dL [facility] Interpretation and review of laboratory results Abnormal [facility] Potassium [Moles/Vol] 3.3 mmol/L Low 3.5 - 5.0 mmol/L [facility] Protein [Mass/Vol] 6.2 g/dL 6.0 - 8.0 g/dL [facility] Sodium [Moles/Vol] 147 mmol/L High 134 - 146 mmol/L [facility] Urea nitrogen [Mass/Vol] 83 mg/dL High 5 - 27 mg/dL [facility] Glucose Glucometer (BldC) [M ass/Vol]on 09-30-2023 Glucose [Mass/Vol] 205 mg/dL High 65 - 99 mg/dL [facility] Interpretation and review of laboratory results Abnormal [facility] Glucose [Mass/Vol] 146 mg/dL High 65 - 99 mg/dL [facility] Interpretation and review of laboratory results Abnormal [facility] Glucose [Mass/Vol] 220 mg/dL High 65 - 99 mg/dL [facility] Interpretation and review of laboratory results Abnormal [facility] Glucose [Mass/Vol] 173 mg/dL High 65 - 99 mg/dL [facility] Interpretation and review of laboratory results Abnormal [facility] Hemoglobin A1con 09-30-2023 Average glucose Estimated from glycated hemoglobin (Bld) [Mass/Vol] 134 mg/dL [facility] HbA1c (Bld) [Mass fraction] 6.3 % High 4.4 - 5.6 % [facility] Interpretation and review of laboratory results Abnormal [facility] Ionized magnesiumon 09-30-19 Magnesium Ionized ISE (Bld) [Moles/Vol] 0.86 mmol/L High 0.45 - 0.74 mmol/L [facility] Magnesiumon 09-30-2023 Magnesium [Mass/Vol] 1.9 mg/dL 1.8 - 2.6 mg/dL [facility] Magnesium Ionized ISE (Bld) [Moles/Vol]on 09-30-2023 Interpretation and review of laboratory results Abnormal [facility] No Panel Informationon 09-30 [facility] Phosphoruson 09-30-2023 Phosphate [Mass/Vol] 3.1 mg/dL 2.4 - 4.9 mg/dL [facility] Potassiumon 09-30-2023 Potassium [Moles/Vol] 4.0 mmol/L 3.5 - 5.0 mmol/L [facility] Potassium [Moles/Vol]on [facility] Protime & INRon 09-30-2023 INR Coag (PPP) [Relative time] 1.9 {INR} High [facility] Interpretation and review of laboratory results Abnormal [facility] PT Coag (PPP) [Time] 21.8 s High [facility] XR Chest Single viewon 09-30 [employer] [facility] Radiology Study observation (narrative) [facility] XR Chest Single viewOrdered By: Vida Jiménez on 09-30-2023 [facility] Work Phone: Bacteria identified Aer cx N om (Bld)on 09-29-2023 Interpretation and review of laboratory results Abnormal [facility] Service comment (Unsp spec) [Interp] Negative Abnormal [facility] Service comment (Unsp spec) [Interp] POSSIBLE COLLECTION CONTAMINATION. SINGLE POSITIVE CULTURE IS OF UNCERTAIN CLINICAL SIGNIFICANCE. SUGGEST CONTINUED MONITORING OF REMAINING BLOOD CULTURES. CONTACT MICROBIOLOGY IF FURTHER INFORMATION IS REQUIRED. [facility] Service comment (Unsp spec) [Interp] Staphylococcus species detected by PCR (not S. aureus, S.epidermidis, or S.lugdunensis). Abnormal [facility] CBC auto differentialon 09-01 Basophils (Bld) [#/Vol] 0.0 10*3/uL [facility] Basophils/100 WBC (Bld) 0.3 % [facility] Eosinophils (Bld) [#/Vol] 0.1 10*3/uL [facility] Eosinophils/100 WBC (Bld) 1.3 % [facility] Erythrocyte distribution width (RBC) [Ratio] 20.4 % High 11.5 - 15.0 % [facility] Hematocrit (Bld) [Volume fraction] 24.2 % Low 35 - 47 % [facility] Hemoglobin (Bld) [Mass/Vol] 7.8 g/dL Low 11.7 - 15.5 g/dL [facility] Interpretation and review of laboratory results Abnormal [facility] Lymphocytes (Bld) [#/Vol] 0.8 10*3/uL Low [facility] Lymphocytes/100 WBC (Bld) 8.6 % [facility] MCH (RBC) [Entitic mass] 30.9 pg 27 - 34 pg [facility] MCHC (RBC) [Mass/Vol] 32.1 g/dL 32 - 36 g/dL [facility] MCV (RBC) [Entitic vol] 96 fL 80 - 100 fL [facility] Monocytes (Bld) [#/Vol] 0.7 10*3/uL [facility] Monocytes/100 WBC (Bld) 7.9 % [facility] Neutrophils (Bld) [#/Vol] 7.7 10*3/uL High [facility] Neutrophils/100 WBC (Bld) 81.9 % [facility] Platelet mean volume (Bld) [Entitic vol] 10.0 fL 7 - 12 fL [facility] Platelets (Bld) [#/Vol] 100 10*3/uL Low [facility] RBC (Bld) [#/Vol] 2.51 10*6/uL Low [facility] WBC corrected for nucl RBC Auto (Bld) [#/Vol] 9.4 [facility] Calcium.ionized (Bld) [Mass/ Vol]on 09-29-2023 [facility] Comprehensive metabolic pane elver 09-29-2023 Albumin [Mass/Vol] 3.7 g/dL 3.2 - 5.3 g/dL [facility] ALP [Catalytic activity/Vol] 76 U/L 39 - 130 U/L [facility] ALT No additional P-5'-P [Catalytic activity/Vol] 11 U/L 0 - 31 U/L [facility] Anion gap [Moles/Vol] 13 mmol/L 5 - 15 mmol/L [facility] AST [Catalytic activity/Vol] 16 U/L 0 - 41 U/L [facility] Bilirubin [Mass/Vol] 0.9 mg/dL 0.3 - 1.2 mg/dL [facility] Calcium [Mass/Vol] 8.4 mg/dL Low 8.5 - 10. 5 mg/dL [facility] Chloride [Moles/Vol] 105 mmol/L 98 - 109 mmol/L [facility] CO2 [Moles/Vol] 32 mmol/L 22 - 32 mmol/L [facility] Creatinine [Mass/Vol] 3.03 mg/dL High 0.40 - 1.00 mg/dL [facility] eGFR (CKD-EPI)non-race dependent 16 Low - PINF [facility] Glucose [Mass/Vol] 167 mg/dL High 65 - 99 mg/dL [facility] Interpretation and review of laboratory results Abnormal [facility] Potassium [Moles/Vol] 3.2 mmol/L Low 3.5 - 5.0 mmol/L [facility] Protein [Mass/Vol] 6.4 g/dL 6.0 - 8.0 g/dL [facility] Sodium [Moles/Vol] 150 mmol/L High 134 - 146 mmol/L [facility] Urea nitrogen [Mass/Vol] 87 mg/dL High 5 - 27 mg/dL [facility] Glucose Glucometer (BldC) [M ass/Vol]on 09-29-2023 Glucose [Mass/Vol] 300 mg/dL High 65 - 99 mg/dL [facility] Interpretation and review of laboratory results Abnormal [facility] Glucose [Mass/Vol] 254 mg/dL High 65 - 99 mg/dL [facility] Interpretation and review of laboratory results Abnormal [facility] Glucose [Mass/Vol] 187 mg/dL High 65 - 99 mg/dL [facility] Interpretation and review of laboratory results Abnormal [facility] Glucose [Mass/Vol] 160 mg/dL High 65 - 99 mg/dL [facility] Interpretation and review of laboratory results Abnormal [facility] Ionized calciumon 09-29-2023 Calcium.ionized (Bld) [Mass/Vol] 4.5 mg/dL 4.5 - 5.3 mg/dL [facility] Ionized magnesiumon 09-29-20 Magnesium Ionized ISE (Bld) [Moles/Vol] 0.59 mmol/L 0.45 - 0.74 mmol/L [facility] Magnesiumon 09-29-2023 Magnesium [Mass/Vol] 1.8 mg/dL 1.8 - 2.6 mg/dL [facility] Magnesium Ionized ISE (Bld) [Moles/Vol]on 09-29-2023 [facility] No Panel Informationon 09-29 [facility] Phosphoruson 09-29-2023 Phosphate [Mass/Vol] 3.7 mg/dL 2.4 - 4.9 mg/dL [facility] Protime & INRon 09-29-2023 INR Coag (PPP) [Relative time] 2.1 {INR} High [facility] Interpretation and review of laboratory results Abnormal [facility] PT Coag (PPP) [Time] 23.5 s High [facility] XR Chest Single viewon 09-29 SECTRAPACS [facility] Radiology Study observation (narrative) [facility] Ammoniaon 09-28-2023 Ammonia (P) [Moles/Vol] 36 umol/L 18 - 72 umol/L [facility] Ammonia (P) [Moles/Vol]on [facility] Bacteria identified Cx Nom ( U)on 09-28-2023 Service comment (Unsp spec) [Interp] URINE RECEIVED WITHOUT PRESERVATIVE [facility] Service comment (Unsp spec) [Interp] NO GROWTH AT <1000 CFU/mL [facility] CBC auto differentialon 09-01 Basophils (Bld) [#/Vol] 0.0 10*3/uL [facility] Basophils/100 WBC (Bld) 0.1 % [facility] Eosinophils (Bld) [#/Vol] 0.1 10*3/uL [facility] Eosinophils/100 WBC (Bld) 0.9 % [facility] Erythrocyte distribution width (RBC) [Ratio] 19.5 % High 11.5 - 15.0 % [facility] Hematocrit (Bld) [Volume fraction] 23.2 % Low 35 - 47 % [facility] Hemoglobin (Bld) [Mass/Vol] 7.5 g/dL Low 11.7 - 15.5 g/dL [facility] Interpretation and review of laboratory results Abnormal [facility] Lymphocytes (Bld) [#/Vol] 0.6 10*3/uL Low [facility] Lymphocytes/100 WBC (Bld) 5.2 % [facility] MCH (RBC) [Entitic mass] 31.1 pg 27 - 34 pg [facility] MCHC (RBC) [Mass/Vol] 32.5 g/dL 32 - 36 g/dL [facility] MCV (RBC) [Entitic vol] 96 fL 80 - 100 fL [facility] Monocytes (Bld) [#/Vol] 0.7 10*3/uL [facility] Monocytes/100 WBC (Bld) 6.5 % [facility] Neutrophils (Bld) [#/Vol] 9.5 10*3/uL High [facility] Neutrophils/100 WBC (Bld) 87.3 % [facility] Platelet mean volume (Bld) [Entitic vol] 10.0 fL 7 - 12 fL [facility] Platelets (Bld) [#/Vol] 81 10*3/uL Low [facility] RBC (Bld) [#/Vol] 2.43 10*6/uL Low [facility] WBC corrected for nucl RBC Auto (Bld) [#/Vol] 10.9 [facility] Calcium.ionized (Bld) [Mass/ Vol]on 09-28-2023 [facility] Comprehensive metabolic pane elver 09-28-2023 Albumin [Mass/Vol] 3.4 g/dL 3.2 - 5.3 g/dL [facility] ALP [Catalytic activity/Vol] 78 U/L 39 - 130 U/L [facility] ALT No additional P-5'-P [Catalytic activity/Vol] 11 U/L 0 - 31 U/L [facility] Anion gap [Moles/Vol] 14 mmol/L 5 - 15 mmol/L [facility] AST [Catalytic activity/Vol] 18 U/L 0 - 41 U/L [facility] Bilirubin [Mass/Vol] 1.0 mg/dL 0.3 - 1.2 mg/dL [facility] Calcium [Mass/Vol] 8.7 mg/dL 8.5 - 10. 5 mg/dL [facility] Chloride [Moles/Vol] 104 mmol/L 98 - 109 mmol/L [facility] CO2 [Moles/Vol] 30 mmol/L 22 - 32 mmol/L [facility] Creatinine [Mass/Vol] 3.24 mg/dL High 0.40 - 1.00 mg/dL [facility] eGFR (CKD-EPI)non-race dependent 15 Low - PINF [facility] Glucose [Mass/Vol] 129 mg/dL High 65 - 99 mg/dL [facility] Potassium [Moles/Vol] 3.2 mmol/L Low 3.5 - 5.0 mmol/L [facility] Protein [Mass/Vol] 6.1 g/dL 6.0 - 8.0 g/dL [facility] Sodium [Moles/Vol] 148 mmol/L High 134 - 146 mmol/L [facility] Urea nitrogen [Mass/Vol] 86 mg/dL High 5 - 27 mg/dL [facility] Glucose Glucometer (BldC) [M ass/Vol]on 09-28-2023 Glucose [Mass/Vol] 201 mg/dL High 65 - 99 mg/dL [facility] Interpretation and review of laboratory results Abnormal [facility] Glucose [Mass/Vol] 234 mg/dL High 65 - 99 mg/dL [facility] Interpretation and review of laboratory results Abnormal [facility] Glucose [Mass/Vol] 185 mg/dL High 65 - 99 mg/dL [facility] Glucose [Mass/Vol] 179 mg/dL High 65 - 99 mg/dL [facility] Interpretation and review of laboratory results Abnormal [facility] Ionized calciumon 09-28-2023 Calcium.ionized (Bld) [Mass/Vol] 4.5 mg/dL 4.5 - 5.3 mg/dL [facility] Magnesiumon 09-28-2023 Magnesium [Mass/Vol] 2.0 mg/dL 1.8 - 2.6 mg/dL [facility] No Panel Informationon 09-28 Interpretation and review of laboratory results Abnormal [facility] Phosphoruson 09-28-2023 Phosphate [Mass/Vol] 5.3 mg/dL High 2.4 - 4.9 mg/dL [facility] Procalcitoninon 09-28-2023 Procalcitonin IA [Mass/Vol] 0.93 ng/mL High NINF - 0.05 ng/mL [facility] Procalcitonin IA [Mass/Vol]o n 09-28-2023 Interpretation and review of laboratory results Abnormal [facility] Protime & INRon 09-28-2023 INR Coag (PPP) [Relative time] 2.0 {INR} High [facility] Interpretation and review of laboratory results Abnormal [facility] PT Coag (PPP) [Time] 22.9 s High [facility] XR Chest Single viewon 09-28 [facility]RAPACS [facility] Radiology Study observation (narrative) [facility] XR Chest Single viewOrdered By: Jamaal Cormier on 09-28-2023 [facility] Work Phone: Blood Gas, Arterialon 2022 Arterial patency Wrist artery --pre arterial puncture Pass [facility] Base excess Calc (Bld) [Moles/Vol] 1.0 mmol/L [facility] CO2 (Bld) [Partial pressure] 37.8 mm[Hg] [facility] HCO3 (Bld) [Moles/Vol] 25.1 mmol/L [facility] Interpretation and review of laboratory results Abnormal [facility] Oxygen (Bld) [Partial pressure] 73 mm[Hg] Low [facility] Oxygen therapy source and amount [CARE] Vent [facility] Oxygen/Inspired gas setting [Volume Fraction] Ventilator 28 % [facility] pH (Bld) 7.431 [pH] 7.350 - 7.450 [facility] Specimen site Narrative LRad [facility] Specimen type Nom (Spec) ARTERIAL [facility] CBC auto differentialon 08-31 Basophils (Bld) [#/Vol] 0.0 10*3/uL [facility] Basophils/100 WBC (Bld) 0.1 % [facility] Eosinophils (Bld) [#/Vol] 0.2 10*3/uL [facility] Eosinophils/100 WBC (Bld) 1.0 % [facility] Erythrocyte distribution width (RBC) [Ratio] 19.8 % High 11.5 - 15.0 % [facility] Hematocrit (Bld) [Volume fraction] 24.8 % Low 35 - 47 % [facility] Hemoglobin (Bld) [Mass/Vol] 8.1 g/dL Low 11.7 - 15.5 g/dL [facility] Interpretation and review of laboratory results Abnormal [facility] Lymphocytes (Bld) [#/Vol] 0.9 10*3/uL Low [facility] Lymphocytes/100 WBC (Bld) 5.1 % [facility] MCH (RBC) [Entitic mass] 30.8 pg 27 - 34 pg [facility] MCHC (RBC) [Mass/Vol] 32.5 g/dL 32 - 36 g/dL [facility] MCV (RBC) [Entitic vol] 95 fL 80 - 100 fL [facility] Monocytes (Bld) [#/Vol] 1.3 10*3/uL High [facility] Monocytes/100 WBC (Bld) 7.1 % [facility] Neutrophils (Bld) [#/Vol] 16.2 10*3/uL High [facility] Neutrophils/100 WBC (Bld) 86.7 % [facility] Platelet mean volume (Bld) [Entitic vol] 11.1 fL 7 - 12 fL [facility] Platelets (Bld) [#/Vol] 69 10*3/uL Low [facility] RBC (Bld) [#/Vol] 2.62 10*6/uL Low [facility] WBC corrected for nucl RBC Auto (Bld) [#/Vol] 18.7 High [facility] CT Head WO contraston 2022 SECTRAPACS [facility] Radiology Study observation (narrative) [facility] CT Head WO contrastOrdered B y: Matt Duncan on 09-27-2023 [facility] Work Phone: Calcium.ionized (Bld) [Mass/ Vol]on 09-27-2023 [facility] Interpretation and review of laboratory results [facility]normal [facility] Interpretation and review of laboratory results Abnormal [facility] Comprehensive metabolic pane elver 09-27-2023 Albumin [Mass/Vol] 3.7 g/dL 3.2 - 5.3 g/dL [facility] ALP [Catalytic activity/Vol] 98 U/L 39 - 130 U/L [facility] ALT No additional P-5'-P [Catalytic activity/Vol] 18 U/L 0 - 31 U/L [facility] Anion gap [Moles/Vol] 15 mmol/L 5 - 15 mmol/L [facility] AST [Catalytic activity/Vol] 20 U/L 0 - 41 U/L [facility] Bilirubin [Mass/Vol] 1.2 mg/dL 0.3 - 1.2 mg/dL [facility] Calcium [Mass/Vol] 8.6 mg/dL 8.5 - 10. 5 mg/dL [facility] Chloride [Moles/Vol] 104 mmol/L 98 - 109 mmol/L [facility] CO2 [Moles/Vol] 27 mmol/L 22 - 32 mmol/L [facility] Creatinine [Mass/Vol] 3.54 mg/dL High 0.40 - 1.00 mg/dL [facility] eGFR (CKD-EPI)non-race dependent 14 Low - PINF [facility] Glucose [Mass/Vol] 142 mg/dL High 65 - 99 mg/dL [facility] Interpretation and review of laboratory results Abnormal [facility] Potassium [Moles/Vol] 3.7 mmol/L 3.5 - 5.0 mmol/L [facility] Protein [Mass/Vol] 6.3 g/dL 6.0 - 8.0 g/dL [facility] Sodium [Moles/Vol] 146 mmol/L 134 - 146 mmol/L [facility] Urea nitrogen [Mass/Vol] 85 mg/dL High 5 - 27 mg/dL [facility] Glucose Glucometer (BldC) [M ass/Vol]on 09-27-2023 Glucose [Mass/Vol] 142 mg/dL High 65 - 99 mg/dL [facility] Interpretation and review of laboratory results Abnormal [facility] Glucose [Mass/Vol] 132 mg/dL High 65 - 99 mg/dL [facility] Interpretation and review of laboratory results Abnormal [facility] Glucose [Mass/Vol] 125 mg/dL High 65 - 99 mg/dL [facility] Interpretation and review of laboratory results Abnormal [facility] Glucose [Mass/Vol] 171 mg/dL High 65 - 99 mg/dL [facility] Interpretation and review of laboratory results Abnormal [facility] Hemoglobin and hematocrit, b loodon 09-27-2023 Hematocrit (Bld) [Volume fraction] 23.0 % Low 35 - 47 % [facility] Hemoglobin (Bld) [Mass/Vol] 7.4 g/dL Low 11.7 - 15.5 g/dL [facility] Interpretation and review of laboratory results Abnormal [facility] Ionized calciumon 09-27-2023 Calcium.ionized (Bld) [Mass/Vol] 4.5 mg/dL 4.5 - 5.3 mg/dL [facility] Calcium.ionized (Bld) [Mass/Vol] 4.4 mg/dL Low 4.5 - 5.3 mg/dL [facility] Calcium.ionized (Bld) [Mass/Vol] 4.4 mg/dL Low 4.5 - 5.3 mg/dL [facility] Magnesiumon 09-27-2023 Magnesium [Mass/Vol] 2.1 mg/dL 1.8 - 2.6 mg/dL [facility] No Panel Informationon 09-27 [facility] Phosphoruson 09-27-2023 Phosphate [Mass/Vol] 4.6 mg/dL 2.4 - 4.9 mg/dL [facility] Procalcitoninon 09-27-2023 Procalcitonin IA [Mass/Vol] 0.74 ng/mL High NINF - 0.05 ng/mL [facility] Procalcitonin IA [Mass/Vol]o n 09-27-2023 Interpretation and review of laboratory results Abnormal [facility] Protime & INRon 09-27-2023 INR Coag (PPP) [Relative time] 2.3 {INR} High [facility] Interpretation and review of laboratory results Abnormal [facility] PT Coag (PPP) [Time] 25.5 s High [facility] XR Chest Single viewon 09-27 SECTRAPACS [facility] Radiology Study observation (narrative) [facility] XR Chest Single viewOrdered By: Krystal Anderson on 09-27-2023 [facility] Work Phone: [id number] Evaluationon 2022 vWf cleaving protease actual/normal Chromogenic method (PPP) [Rel catalytic activity/Vol] See Below [facility] Basic Metabolic Panelon 08-31 Anion gap [Moles/Vol] 17 mmol/L High 5 - 15 mmol/L [facility] Calcium [Mass/Vol] 8.1 mg/dL Low 8.5 - 10. 5 mg/dL [facility] Chloride [Moles/Vol] 103 mmol/L 98 - 109 mmol/L [facility] CO2 [Moles/Vol] 24 mmol/L 22 - 32 mmol/L [facility] Creatinine [Mass/Vol] 3.66 mg/dL High 0.40 - 1.00 mg/dL [facility] eGFR (CKD-EPI)non-race dependent 13 Low - PINF [facility] Glucose [Mass/Vol] 138 mg/dL High 65 - 99 mg/dL [facility] Interpretation and review of laboratory results Abnormal [facility] Potassium [Moles/Vol] 3.4 mmol/L Low 3.5 - 5.0 mmol/L [facility] Sodium [Moles/Vol] 144 mmol/L 134 - 146 mmol/L [facility] Urea nitrogen [Mass/Vol] 78 mg/dL High 5 - 27 mg/dL [facility] CBC auto differentialon 08-31 Basophils (Bld) [#/Vol] 0.0 10*3/uL [facility] Basophils/100 WBC (Bld) 0.1 % [facility] Eosinophils (Bld) [#/Vol] 0.1 10*3/uL [facility] Eosinophils/100 WBC (Bld) 0.7 % [facility] Erythrocyte distribution width (RBC) [Ratio] 19.0 % High 11.5 - 15.0 % [facility] Hematocrit (Bld) [Volume fraction] 23.4 % Low 35 - 47 % [facility] Hemoglobin (Bld) [Mass/Vol] 7.7 g/dL Low 11.7 - 15.5 g/dL [facility] Interpretation and review of laboratory results Abnormal [facility] Lymphocytes (Bld) [#/Vol] 0.6 10*3/uL Low [facility] Lymphocytes/100 WBC (Bld) 5.2 % [facility] MCH (RBC) [Entitic mass] 30.6 pg 27 - 34 pg [facility] MCHC (RBC) [Mass/Vol] 32.9 g/dL 32 - 36 g/dL [facility] MCV (RBC) [Entitic vol] 93 fL 80 - 100 fL [facility] Monocytes (Bld) [#/Vol] 0.9 10*3/uL [facility] Monocytes/100 WBC (Bld) 8.1 % [facility] Neutrophils (Bld) [#/Vol] 9.7 10*3/uL High [facility] Neutrophils/100 WBC (Bld) 85.9 % [facility] Platelet mean volume (Bld) [Entitic vol] 11.0 fL 7 - 12 fL [facility] Platelets (Bld) [#/Vol] 36 10*3/uL Low [facility] RBC (Bld) [#/Vol] 2.52 10*6/uL Low [facility] WBC corrected for nucl RBC Auto (Bld) [#/Vol] 11.3 High [facility] Calcium.ionized (Bld) [Mass/ Vol]on 09-26-2023 Interpretation and review of laboratory results Abnormal [facility] Glucose Glucometer (BldC) [M ass/Vol]on 09-26-2023 Glucose [Mass/Vol] 173 mg/dL High 65 - 99 mg/dL [facility] Interpretation and review of laboratory results Abnormal [facility] Glucose [Mass/Vol] 191 mg/dL High 65 - 99 mg/dL [facility] Interpretation and review of laboratory results Abnormal [facility] Glucose [Mass/Vol] 149 mg/dL High 65 - 99 mg/dL [facility] Interpretation and review of laboratory results Abnormal [facility] Glucose [Mass/Vol] 155 mg/dL High 65 - 99 mg/dL [facility] Interpretation and review of laboratory results Abnormal [facility] Glucose [Mass/Vol] 168 mg/dL High 65 - 99 mg/dL [facility] Interpretation and review of laboratory results Abnormal [facility] Heparin PF4 ABon 09-26-2023 Heparin induced platelet IgG IA [OD] 0.113 NINF [facility] Heparin induced platelet IgG IA [OD]on 09-26-2023 [facility] Ionized calciumon 09-26-2023 Calcium.ionized (Bld) [Mass/Vol] 4.3 mg/dL Low 4.5 - 5.3 mg/dL [facility] Ionized magnesiumon 09-26-20 Magnesium Ionized ISE (Bld) [Moles/Vol] 0.58 mmol/L 0.45 - 0.74 mmol/L [facility] Magnesiumon 09-26-2023 Magnesium [Mass/Vol] 2.2 mg/dL 1.8 - 2.6 mg/dL [facility] No Panel Informationon 09-26 [facility] Phosphate [Mass/Vol]on 09-26 Interpretation and review of laboratory results Abnormal [facility] Phosphoruson 09-26-2023 Phosphate [Mass/Vol] 5.4 mg/dL High 2.4 - 4.9 mg/dL [facility] Potassiumon 09-26-2023 Potassium [Moles/Vol] 3.5 mmol/L 3.5 - 5.0 mmol/L [facility] Potassium [Moles/Vol]on 08-31 [facility] Protein electrophoresis, uri neon 09-26-2023 Pathologist interpretation (Bld) [Interp] SEE SEPARATE REPORT [facility] Protime & INRon 09-26-2023 INR Coag (PPP) [Relative time] 2.1 {INR} High [facility] Interpretation and review of laboratory results Abnormal [facility] PT Coag (PPP) [Time] 24.3 s High [facility] vWf cleaving protease actual /normal Chromogenic method (PPP) [Rel catalytic activity/Vol]on 09-26-2023 [facility] [id number] Panel Interpretatio non 09-25-2023 [id number] Panel Interpretation See below [facility] [id number] Path Review See below [facility] Anti XA unfractionated hepar inon 09-25-2023 Heparin unfractionated Chromogenic method Qn (PPP) Low [facility] CBC auto differentialon 08-31 Basophils (Bld) [#/Vol] 0.0 10*3/uL [facility] Basophils/100 WBC (Bld) 0.1 % [facility] Eosinophils (Bld) [#/Vol] 0.0 10*3/uL [facility] Eosinophils/100 WBC (Bld) 0.2 % [facility] Erythrocyte distribution width (RBC) [Ratio] 19.4 % High 11.5 - 15.0 % [facility] Hematocrit (Bld) [Volume fraction] 24.1 % Low 35 - 47 % [facility] Hemoglobin (Bld) [Mass/Vol] 7.9 g/dL Low 11.7 - 15.5 g/dL [facility] Interpretation and review of laboratory results Abnormal [facility] Lymphocytes (Bld) [#/Vol] 0.5 10*3/uL Low [facility] Lymphocytes/100 WBC (Bld) 5.0 % [facility] MCH (RBC) [Entitic mass] 30.6 pg 27 - 34 pg [facility] MCHC (RBC) [Mass/Vol] 33.0 g/dL 32 - 36 g/dL [facility] MCV (RBC) [Entitic vol] 93 fL 80 - 100 fL [facility] Monocytes (Bld) [#/Vol] 0.8 10*3/uL [facility] Monocytes/100 WBC (Bld) 7.1 % [facility] Neutrophils (Bld) [#/Vol] 9.2 10*3/uL High [facility] Neutrophils/100 WBC (Bld) 87.6 % [facility] Platelet mean volume (Bld) [Entitic vol] 10.4 fL 7 - 12 fL [facility] Platelets (Bld) [#/Vol] 37 10*3/uL Low [facility] RBC (Bld) [#/Vol] 2.59 10*6/uL Low [facility] WBC corrected for nucl RBC Auto (Bld) [#/Vol] 10.5 [facility] Clinical Pathology Blood Sme ar Review Clinicalon 09-25-2023 Pathologist review Pathologist comment (Bld) [Interp] NOTE [facility] Clinical Pathology Reviewon 09-25-2023 COPATH [facility] Comprehensive metabolic pane elver 09-25-2023 Albumin [Mass/Vol] 3.7 g/dL 3.2 - 5.3 g/dL [facility] ALP [Catalytic activity/Vol] 77 U/L 39 - 130 U/L [facility] ALT No additional P-5'-P [Catalytic activity/Vol] 12 U/L 0 - 31 U/L [facility] Anion gap [Moles/Vol] 17 mmol/L High 5 - 15 mmol/L [facility] AST [Catalytic activity/Vol] 19 U/L 0 - 41 U/L [facility] Bilirubin [Mass/Vol] 1.0 mg/dL 0.3 - 1.2 mg/dL [facility] Calcium [Mass/Vol] 8.0 mg/dL Low 8.5 - 10. 5 mg/dL [facility] Chloride [Moles/Vol] 102 mmol/L 98 - 109 mmol/L [facility] CO2 [Moles/Vol] 23 mmol/L 22 - 32 mmol/L [facility] Creatinine [Mass/Vol] 3.79 mg/dL High 0.40 - 1.00 mg/dL [facility] eGFR (CKD-EPI)non-race dependent 13 Low - PINF [facility] Glucose [Mass/Vol] 141 mg/dL High 65 - 99 mg/dL [facility] Interpretation and review of laboratory results Abnormal [facility] Potassium [Moles/Vol] 3.3 mmol/L Low 3.5 - 5.0 mmol/L [facility] Protein [Mass/Vol] 6.2 g/dL 6.0 - 8.0 g/dL [facility] Sodium [Moles/Vol] 142 mmol/L 134 - 146 mmol/L [facility] Urea nitrogen [Mass/Vol] 68 mg/dL High 5 - 27 mg/dL [facility] Glucose Glucometer (BldC) [M ass/Vol]on 09-25-2023 Glucose [Mass/Vol] 228 mg/dL High 65 - 99 mg/dL [facility] Interpretation and review of laboratory results Abnormal [facility] Glucose [Mass/Vol] 138 mg/dL High 65 - 99 mg/dL [facility] Interpretation and review of laboratory results Abnormal [facility] Magnesiumon 09-25-2023 Magnesium [Mass/Vol] 2.1 mg/dL 1.8 - 2.6 mg/dL [facility] No Panel Informationon 09-25 [facility] Interpretation and review of laboratory results Abnormal [facility] Pathologist review Pathologi st comment (Bld) [Interp]on 09-25-2023 [facility] Phosphate [Mass/Vol]on 09-25 Interpretation and review of laboratory results Abnormal [facility] Phosphoruson 09-25-2023 Phosphate [Mass/Vol] 5.7 mg/dL High 2.4 - 4.9 mg/dL [facility] Protime & INRon 09-25-2023 INR Coag (PPP) [Relative time] 1.8 {INR} High [facility] PT Coag (PPP) [Time] 20.3 s High [facility] ANCAon 09-24-2023 Neutrophil cytoplasmic Ab IF Ql (S) See Below [facility] Anti XA unfractionated hepar inon 09-24-2023 Heparin unfractionated Chromogenic method Qn (PPP) 0.64 [facility] Bacteria identified Cx Nom ( U)on 09-24-2023 Service comment (Unsp spec) [Interp] NO GROWTH AT <1000 CFU/mL [facility] CBC auto differentialon 08-31 Basophils (Bld) [#/Vol] 0.0 10*3/uL [facility] Basophils/100 WBC (Bld) 0.1 % [facility] Eosinophils (Bld) [#/Vol] 0.0 10*3/uL [facility] Eosinophils/100 WBC (Bld) 0.1 % [facility] Erythrocyte distribution width (RBC) [Ratio] 19.4 % High 11.5 - 15.0 % [facility] Hematocrit (Bld) [Volume fraction] 25.5 % Low 35 - 47 % [facility] Hemoglobin (Bld) [Mass/Vol] 8.4 g/dL Low 11.7 - 15.5 g/dL [facility] Interpretation and review of laboratory results Abnormal [facility] Lymphocytes (Bld) [#/Vol] 0.6 10*3/uL Low [facility] Lymphocytes/100 WBC (Bld) 5.6 % [facility] MCH (RBC) [Entitic mass] 30.6 pg 27 - 34 pg [facility] MCHC (RBC) [Mass/Vol] 33.0 g/dL 32 - 36 g/dL [facility] MCV (RBC) [Entitic vol] 93 fL 80 - 100 fL [facility] Monocytes (Bld) [#/Vol] 0.8 10*3/uL [facility] Monocytes/100 WBC (Bld) 7.9 % [facility] Neutrophils (Bld) [#/Vol] 8.7 10*3/uL High [facility] Neutrophils/100 WBC (Bld) 86.3 % [facility] Platelet mean volume (Bld) [Entitic vol] 9.9 fL 7 - 12 fL [facility] Platelets (Bld) [#/Vol] 37 10*3/uL Low [facility] RBC (Bld) [#/Vol] 2.75 10*6/uL Low [facility] WBC corrected for nucl RBC Auto (Bld) [#/Vol] 10.1 [facility] Cobalamin (Vitamin B12) [Mas s/Vol]on 09-24-2023 [facility] Comprehensive metabolic pane elver 09-24-2023 Albumin [Mass/Vol] 3.4 g/dL 3.2 - 5.3 g/dL [facility] ALP [Catalytic activity/Vol] 85 U/L 39 - 130 U/L [facility] ALT No additional P-5'-P [Catalytic activity/Vol] 13 U/L 0 - 31 U/L [facility] Anion gap [Moles/Vol] 17 mmol/L High 5 - 15 mmol/L [facility] AST [Catalytic activity/Vol] 23 U/L 0 - 41 U/L [facility] Bilirubin [Mass/Vol] 0.9 mg/dL 0.3 - 1.2 mg/dL [facility] Calcium [Mass/Vol] 7.7 mg/dL Low 8.5 - 10. 5 mg/dL [facility] Chloride [Moles/Vol] 103 mmol/L 98 - 109 mmol/L [facility] CO2 [Moles/Vol] 22 mmol/L 22 - 32 mmol/L [facility] Creatinine [Mass/Vol] 4.11 mg/dL High 0.40 - 1.00 mg/dL [facility] eGFR (CKD-EPI)non-race dependent 11 Low - PINF [facility] Glucose [Mass/Vol] 113 mg/dL High 65 - 99 mg/dL [facility] Potassium [Moles/Vol] 3.5 mmol/L 3.5 - 5.0 mmol/L [facility] Protein [Mass/Vol] 6.0 g/dL 6.0 - 8.0 g/dL [facility] Sodium [Moles/Vol] 142 mmol/L 134 - 146 mmol/L [facility] Urea nitrogen [Mass/Vol] 62 mg/dL High 5 - 27 mg/dL [facility] Ferritinon 09-24-2023 Ferritin [Mass/Vol] 150 ng/mL 11 - 307 ng/mL [facility] Ferritin [Mass/Vol]on 2022 [facility] Fibrin split productson 08-31 Fibrin+Fibrinogen fragments LA Qn (PPP) 5-20 H Critically abnormal NINF - 5 ug/mL [facility] Fibrin+Fibrinogen fragments LA Qn (PPP)on 09-24-2023 Interpretation and review of laboratory results Abnormal [facility] Fibrinogenon 09-24-2023 Fibrinogen Coagulation.derive d (PPP) [Mass/Vol] 324 mg/dL 190 - 480 mg/dL [facility] Folateon 09-24-2023 Folate [Mass/Vol] 4.2 ng/mL Low 5.8 - PINF ng/mL [facility] Folate [Mass/Vol]on 09-24-20 Interpretation and review of laboratory results Abnormal [facility] Glucose Glucometer (BldC) [M ass/Vol]on 09-24-2023 Glucose [Mass/Vol] 133 mg/dL High 65 - 99 mg/dL [facility] Interpretation and review of laboratory results Abnormal [facility] Glucose [Mass/Vol] 165 mg/dL High 65 - 99 mg/dL [facility] Interpretation and review of laboratory results Abnormal [facility] Glucose [Mass/Vol] 162 mg/dL High 65 - 99 mg/dL [facility] Interpretation and review of laboratory results Abnormal [facility] Glucose [Mass/Vol] 201 mg/dL High 65 - 99 mg/dL [facility] Interpretation and review of laboratory results Abnormal [facility] Glucose [Mass/Vol] 135 mg/dL High 65 - 99 mg/dL [facility] Interpretation and review of laboratory results Abnormal [facility] Haptoglobinon 09-24-2023 Haptoglobin Nephelometry [Mass/Vol] 264 mg/dL High 32 - 228 mg/dL [facility] Haptoglobin Nephelometry [Ma ss/Vol]on 09-24-2023 Interpretation and review of laboratory results Abnormal [facility] Hemoglobin and hematocrit, b loodon 09-24-2023 Hematocrit (Bld) [Volume fraction] 24.3 % Low 35 - 47 % [facility] Hemoglobin (Bld) [Mass/Vol] 8.1 g/dL Low 11.7 - 15.5 g/dL [facility] Interpretation and review of laboratory results Abnormal [facility] Iron and TIBCon 09-24-2023 Interpretation and review of laboratory results Abnormal [facility] Iron [Mass/Vol] 271 ug/dL High 50 - 170 ug/dL [facility] Iron binding capacity [Mass/Vol] 312 ug/dL 250 - 425 ug/dL [facility] Iron saturation [Mass fraction] 87 High [facility] Magnesiumon 09-24-2023 Magnesium [Mass/Vol] 2.1 mg/dL 1.8 - 2.6 mg/dL [facility] Neutrophil cytoplasmic Ab IF Ql (S)on 09-24-2023 [facility] No Panel Informationon 09-24 [facility] Interpretation and review of laboratory results Abnormal [facility] Phosphoruson 09-24-2023 Phosphate [Mass/Vol] 5.4 mg/dL High 2.4 - 4.9 mg/dL [facility] Protein electrophoresis, ser umon 09-24-2023 Albumin [Mass/Vol] 2.9 g/dL Low 3.4 - 5.3 g/dL [facility] Alpha 1 globulin Elph [Mass/Vol] 0.4 g/dL 0.1 - 0.4 g/dL [facility] Alpha 2 globulin Elph [Mass/Vol] 0.8 g/dL 0.4 - 1.1 g/dL [facility] Beta globulin Elph [Mass/Vol] 0.7 g/dL 0.5 - 1.2 g/dL [facility] Gamma globulin Elph [Mass/Vol] 0.9 g/dL 0.5 - 1.6 g/dL [facility] Interpretation and review of laboratory results Abnormal [facility] Pathologist interpretation (Bld) [Interp] Unremarkable protein distribution, no monoclonal bands. [facility] Protein [Mass/Vol] 5.6 g/dL Low 6.0 - 8.0 g/dL [facility] Protime & INRon 09-24-2023 INR Coag (PPP) [Relative time] 1.6 {INR} High [facility] Interpretation and review of laboratory results Abnormal [facility] PT Coag (PPP) [Time] 18.2 s High [facility] Reticulocyteson 09-24-2023 Reticulocytes/100 RBC (Bld) 1.4 % 0.4 - 2.2 % [facility] Vitamin B12on 09-24-2023 Cobalamin (Vitamin B12) [Mass/Vol] 317 pg/mL 180 - 914 pg/mL [facility] Anti XA unfractionated hepar inon 09-23-2023 Heparin unfractionated Chromogenic method Qn (PPP) 0.67 [facility] Heparin unfractionated Chromogenic method Qn (PPP) 0.50 [facility] Blood Gas, Arterialon 2022 Arterial patency Wrist artery --pre arterial puncture Pass [facility] Base deficit (Bld) [Moles/Vol] 3.0 mmol/L High [facility] CO2 (Bld) [Partial pressure] 35.0 mm[Hg] [facility] HCO3 (Bld) [Moles/Vol] 21.3 mmol/L Low [facility] Interpretation and review of laboratory results Abnormal [facility] Oxygen (Bld) [Partial pressure] 119 mm[Hg] High [facility] Oxygen therapy source and amount [CARE] NPPV [facility] Oxygen/Inspired gas setting [Volume Fraction] Ventilator 40 % [facility] pH (Bld) 7.392 [pH] 7.350 - 7.450 [facility] Specimen site Narrative LRad [facility] Specimen type Nom (Spec) ARTERIAL [facility] CBC auto differentialon 08-31 Basophils (Bld) [#/Vol] 0.0 10*3/uL [facility] Basophils/100 WBC (Bld) 0.1 % [facility] Eosinophils (Bld) [#/Vol] 0.0 10*3/uL [facility] Eosinophils/100 WBC (Bld) 0.1 % [facility] Erythrocyte distribution width (RBC) [Ratio] 19.2 % High 11.5 - 15.0 % [facility] Hematocrit (Bld) [Volume fraction] 24.9 % Low 35 - 47 % [facility] Hemoglobin (Bld) [Mass/Vol] 8.2 g/dL Low 11.7 - 15.5 g/dL [facility] Interpretation and review of laboratory results Abnormal [facility] Lymphocytes (Bld) [#/Vol] 0.6 10*3/uL Low [facility] Lymphocytes/100 WBC (Bld) 6.7 % [facility] MCH (RBC) [Entitic mass] 30.6 pg 27 - 34 pg [facility] MCHC (RBC) [Mass/Vol] 32.8 g/dL 32 - 36 g/dL [facility] MCV (RBC) [Entitic vol] 93 fL 80 - 100 fL [facility] Monocytes (Bld) [#/Vol] 0.6 10*3/uL [facility] Monocytes/100 WBC (Bld) 7.2 % [facility] Neutrophils (Bld) [#/Vol] 7.3 10*3/uL High [facility] Neutrophils/100 WBC (Bld) 85.9 % [facility] Platelet mean volume (Bld) [Entitic vol] 9.6 fL 7 - 12 fL [facility] Platelets (Bld) [#/Vol] 38 10*3/uL Low [facility] RBC (Bld) [#/Vol] 2.67 10*6/uL Low [facility] WBC corrected for nucl RBC Auto (Bld) [#/Vol] 8.5 [facility] Comprehensive metabolic pane elver 09-23-2023 Albumin [Mass/Vol] 3.7 g/dL 3.2 - 5.3 g/dL [facility] ALP [Catalytic activity/Vol] 87 U/L 39 - 130 U/L [facility] ALT No additional P-5'-P [Catalytic activity/Vol] 16 U/L 0 - 31 U/L [facility] Anion gap [Moles/Vol] 13 mmol/L 5 - 15 mmol/L [facility] AST [Catalytic activity/Vol] 30 U/L 0 - 41 U/L [facility] Bilirubin [Mass/Vol] 0.8 mg/dL 0.3 - 1.2 mg/dL [facility] Calcium [Mass/Vol] 7.7 mg/dL Low 8.5 - 10. 5 mg/dL [facility] Chloride [Moles/Vol] 101 mmol/L 98 - 109 mmol/L [facility] CO2 [Moles/Vol] 24 mmol/L 22 - 32 mmol/L [facility] Creatinine [Mass/Vol] 4.16 mg/dL High 0.40 - 1.00 mg/dL [facility] eGFR (CKD-EPI)non-race dependent 11 Low - PINF [facility] Glucose [Mass/Vol] 123 mg/dL High 65 - 99 mg/dL [facility] Potassium [Moles/Vol] 3.9 mmol/L 3.5 - 5.0 mmol/L [facility] Protein [Mass/Vol] 6.0 g/dL 6.0 - 8.0 g/dL [facility] Sodium [Moles/Vol] 138 mmol/L 134 - 146 mmol/L [facility] Urea nitrogen [Mass/Vol] 54 mg/dL High 5 - 27 mg/dL [facility] Glucose Glucometer (BldC) [M ass/Vol]on 09-23-2023 Glucose [Mass/Vol] 115 mg/dL High 65 - 99 mg/dL [facility] Interpretation and review of laboratory results Abnormal [facility] Glucose [Mass/Vol] 145 mg/dL High 65 - 99 mg/dL [facility] Interpretation and review of laboratory results Abnormal [facility] Glucose [Mass/Vol] 112 mg/dL High 65 - 99 mg/dL [facility] Interpretation and review of laboratory results Abnormal [facility] Glucose [Mass/Vol] 129 mg/dL High 65 - 99 mg/dL [facility] Interpretation and review of laboratory results Abnormal [facility] Heparin unfractionated Chrom ogenic method Qn (PPP)on 09-23-2023 [facility] Magnesiumon 09-23-2023 Magnesium [Mass/Vol] 2.2 mg/dL 1.8 - 2.6 mg/dL [facility] No Panel Informationon 09-23 Interpretation and review of laboratory results Abnormal [facility] Phosphoruson 09-23-2023 Phosphate [Mass/Vol] 5.5 mg/dL High 2.4 - 4.9 mg/dL [facility] Protime & INRon 09-23-2023 INR Coag (PPP) [Relative time] 1.4 {INR} High [facility] Interpretation and review of laboratory results Abnormal [facility] PT Coag (PPP) [Time] 16.4 s High [facility] ABO Rh Repeaton 09-22-2023 ABO O [facility] Rh Nom (Bld) Positive [facility] Basic Metabolic Panelon 08-31 Anion gap [Moles/Vol] 19 mmol/L High 5 - 15 mmol/L [facility] Calcium [Mass/Vol] 7.0 mg/dL Low 8.5 - 10. 5 mg/dL [facility] Chloride [Moles/Vol] 102 mmol/L 98 - 109 mmol/L [facility] CO2 [Moles/Vol] 20 mmol/L Low 22 - 32 mmol/L [facility] Creatinine [Mass/Vol] 5.70 mg/dL High 0.40 - 1.00 mg/dL [facility] eGFR (CKD-EPI)non-race dependent 8 Low - PINF [facility] Glucose [Mass/Vol] 133 mg/dL High 65 - 99 mg/dL [facility] Potassium [Moles/Vol] 4.4 mmol/L 3.5 - 5.0 mmol/L [facility] Sodium [Moles/Vol] 141 mmol/L 134 - 146 mmol/L [facility] Urea nitrogen [Mass/Vol] 83 mg/dL High 5 - 27 mg/dL [facility] CBC without diffon Hematocrit (Bld) [Volume fraction] 25.6 % Low 35 - 47 % [facility] Hemoglobin (Bld) [Mass/Vol] 8.5 g/dL Low 11.7 - 15.5 g/dL [facility] MCH (RBC) [Entitic mass] 30.6 pg 27 - 34 pg [facility] MCHC (RBC) [Mass/Vol] 33.0 g/dL 32 - 36 g/dL [facility] MCV (RBC) [Entitic vol] 93 fL 80 - 100 fL [facility] Platelets (Bld) [#/Vol] 45 10*3/uL Low [facility] RBC (Bld) [#/Vol] 2.77 10*6/uL Low [facility] WBC corrected for nucl RBC Auto (Bld) [#/Vol] 8.3 [facility] Calcium.ionized (Bld) [Mass/ Vol]on 09-22-2023 Interpretation and review of laboratory results Abnormal [facility] Glucose Glucometer (BldC) [M ass/Vol]on 09-22-2023 Glucose [Mass/Vol] 89 mg/dL 65 - 99 mg/dL [facility] Glucose [Mass/Vol] 86 mg/dL 65 - 99 mg/dL [facility] Glucose [Mass/Vol] 113 mg/dL High 65 - 99 mg/dL [facility] Interpretation and review of laboratory results Abnormal [facility] Glucose [Mass/Vol] 139 mg/dL High 65 - 99 mg/dL [facility] Interpretation and review of laboratory results Abnormal [facility] Ionized calciumon 09-22-2023 Calcium.ionized (Bld) [Mass/Vol] 3.9 mg/dL Low 4.5 - 5.3 mg/dL [facility] Magnesiumon 09-22-2023 Magnesium [Mass/Vol] 2.4 mg/dL 1.8 - 2.6 mg/dL [facility] No Panel Informationon 09-22 Interpretation and review of laboratory results Abnormal [facility] POCT Arterial ICODEon 2022 Arterial patency Wrist artery --pre arterial puncture Pass [facility] Base deficit (Bld) [Moles/Vol] 2.0 mmol/L [facility] Calcium.ionized (Bld) [Moles/Vol] 4.1 mg/dL Low 4.5 - 5.3 mg/dL [facility] CO2 (Bld) [Partial pressure] 26.8 mm[Hg] Low [facility] Glucose [Mass/Vol] 110 mg/dL High 65 - 99 mg/dL [facility] HCO3 (Bld) [Moles/Vol] 20.7 mmol/L Low [facility] Hematocrit (Bld) [Volume fraction] 28 % Low 35 - 47 % [facility] Interpretation and review of laboratory results Abnormal [facility] Oxygen (Bld) [Partial pressure] 68 mm[Hg] Low [facility] Oxygen therapy source and amount [CARE] NC [facility] Oxygen/Inspired gas setting [Volume Fraction] Ventilator 40 % [facility] pH (Bld) 7.497 [pH] High 7.350 - 7.450 [facility] Potassium [Moles/Vol] 3.7 mmol/L 3.5 - 5.0 mmol/L [facility] Sodium [Moles/Vol] 137 mmol/L 134 - 146 mmol/L [facility] Specimen site Narrative [facility]Rad [facility] Specimen type Nom (Spec) ARTERIAL [facility] Phosphoruson 09-22-2023 Phosphate [Mass/Vol] 8.6 mg/dL High 2.4 - 4.9 mg/dL [facility] XR Chest Single viewon 09-22 SECTRAPACS [facility] Radiology Study observation (narrative) [facility] XR Chest Single viewOrdered By: Jose Tinoco on 09-22-2023 [facility] Work Phone: BLOOD CULTUREon 09-20-2023 Bacteria identified Aer cx Nom (Bld) CULTURE RESULTS NO GROWTH 5 DAYS Normal [facility] Bacteria identified Aer cx Nom (Bld) CULTURE RESULTS NO GROWTH 5 DAYS Normal [facility] CBC AND AUTO DIFFon 09-20-20 23 ABSOLUTE BASOPHIL 0.0 X10E9/L Normal 0.0-0.2 [facility] Comment on above: Performed By: #### C MP, 00302-0, 59700-3, 89446-3, 25715-0, 33581-1, 2157-6, 40750-6, PINR, CBCA, TSHR #### [facility] ([id number]) [address] [place] [address], [place] [address] ABSOLUTE NEUTROPHIL 7.0 X10E9/L High 1.5-6.6 [facility] Comment on above: Performed By: #### [place], 76222-8, 04325-0, 10856-4, 23113-6, 97501-4, 2157-6, 89275-2, PINR, CBCA, TSHR #### [facility] ([id number]) [address] [place] [address] [place] [address] Basophils/100 WBC (Bld) 0.1 % Normal [facility] Comment on above: Performed By: #### [place], 46232-5, 28271-1, 34666-8, 21660-6, 97289-2, 2157-6, 96032-9, PINR, CBCA, TSHR #### [facility] ([id number]) [address] [place] [address] 117[address] Eosinophils (Bld) [#/Vol] 0.0 10*3/uL Normal 0.0-0.4 [facility] Comment on above: Performed By: #### C MP, 63697-6, 66053-9, 61625-0, 63807-5, 42063-2, 2157-6, 02170-5, PINR, CBCA, TSHR #### [facility] ([id number]) [address] [place] [address] 08008 Eosinophils/100 WBC (Bld) 0.5 % Normal [facility] Comment on above: Performed By: #### C MP, 05865-8, 90700-3, 27145-7, 77404-5, 48580-2, 2157-6, 25178-7, PINR, CBCA, TSHR #### [facility] ([id number]) [address] [place] [address], [place] [address] Erythrocyte distribution width (RBC) [Ratio] 20.5 % High 11.5-15.0 [facility] Comment on above: Performed By: #### C MP, 28150-3, 97192-0, 32802-4, 01393-9, 77919-8, 2157-6, 65168-1, PINR, CBCA, TSHR #### [facility] ([id number]) [address] [place] [address] 10790 Hematocrit (Bld) [Volume fraction] 29.5 % Low 35-47 [facility] Comment on above: Performed By: #### C MP, 14718-4, 10833-1, 73709-8, 59638-8, 89508-0, 2157-6, 29066-1, PINR, CBCA, TSHR #### [facility] ([id number]) [address] [place] [address] 33565 Hemoglobin (Bld) [Mass/Vol] 9.6 g/dL Low 11.7-15.5 [facility] Comment on above: Performed By: #### C MP, 82808-1, 52779-6, 19479-9, 29775-5, 20554-1, 2157-6, 92351-2, PINR, CBCA, TSHR #### [facility] ([id number]) [address] [place] [address] 070[address] Lymphocytes (Bld) [#/Vol] 0.5 10*3/uL Low 1.0-3.5 [facility] Comment on above: Performed By: #### C MP, 64271-5, 64679-4, 15468-0, 41639-0, 88179-4, 2157-6, 00351-4, PINR, CBCA, TSHR #### [facility] ([id number]) [address] [place] [address] 54711 Lymphocytes/100 WBC (Bld) 6.7 % Normal [facility] Comment on above: Performed By: #### C MP, 29170-8, 33240-2, 47468-6, 27878-4, 10942-4, 2157-6, 64044-9, PINR, CBCA, TSHR #### [facility] ([id number]) [address] [place] [address] 78120 MCH (RBC) [Entitic mass] 30.5 pg Normal 27-34 [facility] Comment on above: Performed By: #### C MP, 55131-4, 14455-4, 57067-6, 70856-3, 25642-5, 2157-6, 11218-5, PINR, CBCA, TSHR #### [facility] ([id number]) [address] [place] [address] 62018 MCHC (RBC) [Mass/Vol] 32.5 g/dL Normal 32-36 [facility] Comment on above: Performed By: #### C MP, 33633-6, 82871-8, 31051-8, 12421-6, 33778-2, 2157-6, 92888-7, PINR, CBCA, TSHR #### [facility] ([id number]) [address] [place] [address] 45411 MCV (RBC) [Entitic vol] 94 fL Normal 80-100 [facility] Comment on above: Performed By: #### C MP, 44356-2, 73608-1, 61559-4, 17087-2, 01795-5, 2157-6, 19414-3, PINR, CBCA, TSHR #### [facility] ([id number]) [address] [place] [address] 33626 Monocytes (Bld) [#/Vol] 0.5 10*3/uL Normal 0-0.9 [facility] Comment on above: Performed By: #### C MP, 67662-6, 98930-1, 06958-6, 96129-9, 20766-6, 2157-6, 97102-4, PINR, CBCA, TSHR #### [facility] ([id number]) [address] [place] [address] 09306 Monocytes/100 WBC (Bld) 6.4 % Normal [facility] Comment on above: Performed By: #### C MP, 91152-1, 26380-1, 53964-8, 80119-4, 01655-9, 2157-6, 55179-7, PINR, CBCA, TSHR #### [facility] ([id number]) [address] [place] [address] 12292 Neutrophils/100 WBC (Bld) 86.3 % Normal [facility] Comment on above: Performed By: #### C ROSALBA, 31066-2, 29644-8, 12717-6, 13360-0, 09117-7, 2157-6, 12907-7, PINR, CBCA, TSHR #### [facility] ([id number]) [address] [place] [address] 54343 Platelet mean volume (Bld) [Entitic vol] 11.6 fL Normal 7-12 [facility] Comment on above: Performed By: #### C MP, 13533-3, 83988-5, 58282-6, 50984-4, 55824-5, 2157-6, 21377-4, PINR, CBCA, TSHR #### [facility] ([id number]) [address] [place] [address] 36399 Platelets (Bld) [#/Vol] 62 10*3/uL Low 150-450 [facility] Comment on above: Performed By: #### C MP, 21935-3, 15518-3, 61173-5, 35048-8, 31808-7, 2157-6, 41718-7, PINR, CBCA, TSHR #### [facility] ([id number]) [address] [place] [address] 52487 RBC COUNT 3.14 X10E12/L Low 3.80-5.20 [facility] Comment on above: Performed By: #### C MP, 61377-9, 23582-6, 79160-8, 19375-4, 45901-1, 2157-6, 27610-5, PINR, CBCA, TSHR #### [facility] ([id number]) [address] [place] [address] 02021 WBC (Bld) [#/Vol] 8.1 10*3/uL Normal 4.0-11.0 [facility] Comment on above: Performed By: #### C MP, 57976-8, 46616-3, 05412-8, 97795-8, 89484-8, 2157-6, 19257-6, PINR, CBCA, TSHR #### [facility] ([id number]) [address] [place] [address] 06627 CK [Catalytic activity/Vol]o n 09-20-2023 CPK 100 U/L Normal 24-170 [facility] Comment on above: Performed By: #### C MP, 58198-4, 90358-4, 04376-5, 66651-8, 10043-6, 2157-6, 06183-5, PINR, CBCA, TSHR #### [facility] ([id number]) [address] [place] [address] 04091 COMPREHENSIVE METABOLIC PANE [facility] 09-20-2023 Albumin [Mass/Vol] 3.2 g/dL Normal 3.2-5.3 [facility] Comment on above: Performed By: #### C MP, 07222-0, 85695-9, 94451-6, 45786-2, 08280-7, 2157-6, 02256-9, PINR, CBCA, TSHR #### [facility] ([id number]) [address] [place] [address] 43800 ALP [Catalytic activity/Vol] 98 U/L Normal 39-130 [facility] Comment on above: Performed By: #### C MP, 34976-3, 13971-9, 47974-7, 07693-2, 41873-2, 2157-6, 39140-3, PINR, CBCA, TSHR #### [facility] ([id number]) [address] [place] [address] 55050 ALT [Catalytic activity/Vol] 27 U/L Normal 0-31 [facility] Comment on above: Performed By: #### C MP, 05865-4, 10912-6, 61449-6, 87128-5, 76170-4, 2157-6, 99505-4, PINR, CBCA, TSHR #### [facility] ([id number]) [address] [place] [address] 40698 Anion gap [Moles/Vol] 10 mmol/L Normal 5-15 [facility] Comment on above: Performed By: #### C MP, 49432-3, 03238-5, 59536-7, 56245-3, 99547-3, 2157-6, 21246-7, PINR, CBCA, TSHR #### [facility] ([id number]) [address] [place] [address] 23986 AST [Catalytic activity/Vol] 34 U/L Normal 0-41 [facility] Comment on above: Performed By: #### C MP, 60786-5, 92082-3, 27777-0, 51637-7, 94751-4, 2157-6, 85152-1, PINR, CBCA, TSHR #### [facility] ([id number]) [address] [place] [address] 17790 Bilirubin [Mass/Vol] 0.7 mg/dL Normal 0.3-1.2 [facility] Comment on above: Performed By: #### C MP, 37469-6, 60388-1, 09431-4, 92398-3, 15428-6, 2157-6, 52568-1, PINR, CBCA, TSHR #### [facility] ([id number]) [address] [place] [address] 59387 Calcium [Mass/Vol] 7.1 mg/dL Low 8.5-10.5 [facility] Comment on above: Performed By: #### C MP, 30773-8, 90167-4, 35470-6, 92325-2, 06600-9, 2157-6, 32647-6, PINR, CBCA, TSHR #### [facility] ([id number]) [address] [place] [address] 90839 Chloride [Moles/Vol] 108 mmol/L Normal 98-109 [facility] Comment on above: Performed By: #### C MP, 11736-4, 12687-5, 30557-6, 93295-1, 51821-9, 2157-6, 51819-8, PINR, CBCA, TSHR #### [facility] ([id number]) [address] [place] [address] 08912 CO2 [Moles/Vol] 15 mmol/L Low 22-32 [facility] Comment on above: Performed By: #### [place], 92204-6, 30145-5, 91222-3, 14182-9, 45297-3, 2157-6, 75557-2, PINR, CBCA, TSHR #### [facility] ([id number]) [address] [place] [address] Creatinine [Mass/Vol] 6.52 mg/dL High 0.40-1.00 [facility] Comment on above: Result Comment: METH OD TRACEABLE TO IDMS STANDARD Performed By: #### C MP, 08036-3, 33343-4, 58167-9, 10294-2, 01868-6, 2157-6, 88832-5, PINR, CBCA, TSHR #### [facility] ([id number]) [address] [place] [address] GFR/1.73 sq M.predicted among non-blacks MDRD (S/P/Bld) [Vol rate/Area] 7 mL/min/{1.73_m2} Low >59 [facility] Comment on above: Result Comment: Reported eGFR is based on the CKD-EPI 2020 equation that does not use a race coefficient. Performed By: #### C ROSALBA, 99095-1, 19066-0, 92428-5, 46485-1, 25290-0, 2157-6, 85027-9, PINR, CBCA, TSHR #### [facility] ([id number]) [address] [place] [address] Glucose [Mass/Vol] 100 mg/dL High 65-99 [facility] Comment on above: Performed By: #### C ROSALBA, 92214-2, 21619-5, 97643-6, 38748-2, 23172-5, 2157-6, 83900-0, PINR, CBCA, TSHR #### [facility] ([id number]) [address] [place] [address] Potassium [Moles/Vol] 4.9 mmol/L Normal 3.5-5.0 [facility] Comment on above: Performed By: #### C ROSALBA, 50803-1, 56832-2, 41425-8, 14494-5, 33915-7, 2157-6, 72597-7, PINR, CBCA, TSHR #### [facility] ([id number]) [address] [place] [address] 106[address] Protein [Mass/Vol] 6.4 g/dL Normal 6.0-8.0 [facility] Comment on above: Performed By: #### C ROSALBA, 88946-1, 35779-8, 74611-0, 12388-0, 50055-9, 2157-6, 95281-0, PINR, CBCA, TSHR #### [facility] ([id number]) [address] [place] [address] Sodium [Moles/Vol] 133 mmol/L Low 134-146 [facility] Comment on above: Performed By: #### C MP, 94785-7, 99174-2, 66089-4, 76418-2, 29644-8, 2157-6, 79989-6, PINR, CBCA, TSHR #### [facility] ([id number]) [address] [place] [address] Urea nitrogen [Mass/Vol] 99 mg/dL High 5-27 [facility] Comment on above: Performed By: #### C MP, 50091-2, 18862-9, 87860-4, 09277-3, 18232-5, 2157-6, 25499-2, PINR, CBCA, TSHR #### [facility] ([id number]) [address] [place] [address] CT BRAIN WO CONTon 3 CT BRAIN [...] Ceja MD on 09/20/2023 1:40 AM Normal [facility] Lactate (P stan) [Moles/Vol]o n 09-20-2023 Lactate [Moles/Vol] 1.5 mmol/L Normal 0.4-2.0 [facility] Comment on above: Performed By: #### C MP, 82661-0, 69897-9, 50203-8, 11221-0, 94725-0, 2157-6, 65341-9, PINR, CBCA, TSHR #### [facility] ([id number]) [address] [place] [address]797 LACTATE W/REFLEX 2.2 mmol/L High 0.4-2.0 [facility] Comment on above: Performed By: #### C MP, 18914-8, 85035-5, 88495-9, 43395-2, 05140-6, 2157-6, 45250-1, PINR, CBCA, TSHR #### [facility] ([id number]) [address] [place] [address] 76[address] MAGNESIUMon 09-20-2023 Magnesium [Mass/Vol] 2.9 mg/dL High 1.8-2.6 [facility] Comment on above: Performed By: #### C MP, 36438-7, 97313-7, 76306-3, 94483-4, 06811-1, 2157-6, 00718-7, PINR, CBCA, TSHR #### [facility] ([id number]) [address] [place] [address] 97[address] Natriuretic peptide B [Mass/ Vol]on 09-20-2023 Natriuretic peptide B (Bld) [Mass/Vol] 555 pg/mL High <100.0 [facility] Comment on above: Performed By: #### C MP, 72370-2, 54956-9, 98080-1, 80807-0, 94914-3, 2157-6, 16333-2, PINR, CBCA, TSHR #### [facility] ([id number]) [address] [place] [address] 99953 PROTIME AND INRon 09-20-2023 INR Coag (PPP) [Relative time] {INR} Critically high 0.8-1.1 [facility] Comment on above: Performed By: #### C MP, 98710-0, 68957-1, 60968-9, 01823-3, 58012-0, 2157-6, 34838-5, PINR, CBCA, TSHR #### [facility] ([id number]) [address] [place] [address] 42984 PT Coag (PPP) [Time] 191.2 s High 9.8-13.2 [facility] Comment on above: Result Comment: NEW REFERENCE RANGE Performed By: #### C ROSALBA, 39085-9, 82854-8, 50762-2, 27793-9, 64778-0, 2157-6, 38423-3, PINR, CBCA, TSHR #### [facility] ([id number]) [address] [place] [address] 90993 Procalcitonin IA [Mass/Vol]o n 09-20-2023 PROCALCITONIN 0.53 ng/mL High <0.05 [facility] Comment on above: Result Comment: NOTE <0.50 ng/mL - Low risk of severe sepsis and/or septic shock. <2.00 ng/mL - Recommend retesting within 6-24 hours. >2.00 ng/mL - High risk of sepsis and/or septic shock. Performed By: #### C MP, 60071-9, 72818-3, 66090-9, 35924-9, 05342-2, 2157-6, 39208-7, PINR, CBCA, TSHR #### [facility] ([id number]) [address] [place] [address] 27820 SARS/FLU A+B/RSV by NAAT/Mol ecularon 09-20-2023 SARS/FLU [...] operators who are performing tests using either [employer] or [employer] systems and is limited to laboratories that [...] repeat. Fact Sheet for Healthcare Providers: https://www.fda.gov/media /065454/download Fact Sheet for Patients: https://www.fda.gov/media /290876/download Normal [facility] Comment on above: Performed By: #### C MP, 10364-1, 73747-3, 85706-8, 47372-7, 56042-2, 2157-6, 57082-2, PINR, CBCA, TSHR #### [facility] ([id number]) [address] [place] [address], [place] [address] TROPONIN Ion 09-20-2023 Troponin I.cardiac [Mass/Vol] 0.02 ng/mL Normal 0.00-0.04 [facility] Comment on above: Performed By: #### C ROSALBA, 02179-1, 83232-9, 81788-5, 64200-9, 91497-4, 2157-6, 12216-2, PINR, CBCA, TSHR #### [facility] ([id number]) [address] [place] [address] 74147 TSH WITH REFLEXon 09-20-2023 TSH 3.37 uIU/mL Normal 0.49-4.67 [facility] Comment on above: Performed By: #### C ROSALBA, 16871-7, 89980-6, 56655-0, 16542-7, 42552-6, 2157-6, 82083-9, PINR, CBCA, TSHR #### [facility] ([id number]) [address] [place] [address] 26489 VENOUS BLOOD GASon 3 RONNIE'S TEST Normal [facility] Comment on above: Performed By: #### V BG #### [facility] ([id number]) [address] [place] [address] 95014 BASE,DEFICIT 13.0 MMOL/L High 0.0-2.0 [facility] Comment on above: Performed By: #### Ban BG #### [facility] ([id number]) [address] [place] [address] 48290 Body temperature 98.6 [degF] Normal 37.0 [facility] Comment on above: Performed By: #### V BG #### [facility] ([id number]) [address] [place] [address] 30262 HCO3 (Bld) [Moles/Vol] 14.0 mmol/L Low 20.0-24.0 [facility] Comment on above: Performed By: #### V BG #### [facility] ([id number]) [address] [place] [address] [place] [address] INSP. O2 CONC. 21 % Normal [facility] Comment on above: Performed By: #### V BG #### [facility] ([id number]) [address] [place] [address] 00815 Oxygen saturation in Blood 53.0 % Low >80.0 [facility] Comment on above: Performed By: #### V BG #### [facility] ([id number]) [address] [place] [address] 27062 OXYGEN SOURCE [employer] [facility] Comment on above: Performed By: #### V BG #### [facility] ([id number]) [address] [place] [address] 99519 PCO2, VENOUS 37.7 MMHG Normal 35-50 [facility] Comment on above: Performed By: #### V BG #### [facility] ([id number]) [address] [place] [address] [place] [address] PH, VENOUS 7.179 Low 7.320-7.420 [facility] Comment on above: Performed By: #### V BG #### [facility] ([id number]) [address] [place] [address] [place] [address] PO2, VENOUS 35 MMHG Normal 30-50 [facility] Comment on above: Performed By: #### V BG #### [facility] ([id number]) [address] [place] [address] [place] [address] SAMPLE SITE N/A Normal [facility] Comment on above: Performed By: #### V BG #### [facility] ([id number]) [address] [place] [address] [place] [address] SAMPLE TYPE VENOUS Normal [facility] Comment on above: Performed By: #### V BG #### [facility] ([id number]) [address] [place] [address] 17820 XR CHEST 1 VWon 09-20-2023 XR CHEST 1 VW XR CHEST 1 VW Single view chest XR CHEST 1 VW History: weakness Comparison: September 03 Impression: * No consolidation or pleural fluid. No acute findings. Moderate cardiomegaly Finalized by Watson Ceja MD on 09/20/2023 1:42 AM Normal [facility] aPTT Coag (PPP) [Time]on aPTT Coag (Bld) [Time] 88 s High 26-37 [facility] Comment on above: Result Comment: NEW REFERENCE RANGE Performed By: #### C MP, 09641-2, 87941-8, 59467-6, 95569-9, 90835-3, 2157-6, 18785-2, PINR, CBCA, TSHR #### [facility] ([id number]) [address] [place] [address] 97077 Vital Signs Date Time Vital Sign Value Performing Clinician Facility 12-28-2023 23:14-0400 Body temperature 98.4 [degF] Brandon Carrillo MD Work Phone: [facility] 12-28-2023 23:14-0400 Diastolic blood pressure 67 mm[Hg] Brandon Carrillo MD Work Phone: [facility] 12-28-2023 23:14-0400 Heart rate 89 /min Brandon Carrillo MD Work Phone: [facility] 12-28-2023 23:14-0400 Respiratory rate 16 /min Brandon Carrillo MD Work Phone: [facility] 12-28-2023 23:14-0400 SaO2% (BldA) [Mass fraction] 91 % Brandon Carrillo MD Work Phone: [facility] 12-28-2023 23:14-0400 Systolic blood pressure 119 mm[Hg] Brandon Carrillo MD Work Phone: [facility] 12-28-2023 05:30-0400 Body mass index (BMI) [Ratio] 45.15 kg/m2 Brandon Carrillo MD Work Phone: [facility] 12-28-2023 05:30-0400 Body weight 119.3 kg Brandon Carrillo MD Work Phone: [facility] 12-25-2023 23:07-0400 Body height 162.6 cm Brandon Carrillo MD Work Phone: [facility] 12-23-2023 16:41-0400 SaO2% (BldA) [Mass fraction] 100 % [facility] Comment on above: Performed By: #### VBG ####[facility] ([id number])[address] [place] [address] 12-23-2023 14:44-0400 Body temperature 98.6 [degF] Brandon Carrillo MD Work Phone: [facility] 12-23-2023 14:44-0400 SaO2% (BldA) [Mass fraction] 100 % Brandon Carrillo MD Work Phone: [facility] 10-05-2023 14:56-0500 Diastolic blood pressure 65 mm[Hg] Elvi Schreiber MD Work Phone: [facility] 10-05-2023 14:56-0500 Systolic blood pressure 106 mm[Hg] Elvi Schreiber MD Work Phone: [facility] 10-05-2023 12:55-0500 Body temperature 98.01 [degF] Elvi Schreiber MD Work Phone: [facility] 10-05-2023 12:55-0500 Respiratory rate 18 /min Elvi Schreiber MD Work Phone: [facility] 10-05-2023 12:55-0500 SaO2% (BldA) [Mass fraction] 94 % Elvi Schreiber MD Work Phone: [facility] 10-05-2023 09:01-0500 Heart rate 67 /min Elvi Schreiber MD Work Phone: 0(565)355-529286 [place] [address] 10-05-2023 07:08-0500 Body temperature 98.6 [degF] Elvi Schreiber MD Work Phone: 3(400)615-299486 [place] [address] 10-05-2023 07:08-0500 SaO2% (BldA) [Mass fraction] 98 % Elvi Schreiber MD Work Phone: 5(467)783-727286 [place] [address] 10-05-2023 06:00-0500 Body mass index (BMI) [Ratio] 41.64 kg/m2 Elvi Schreiber MD Work Phone: 8(999)518-009086 [place] [address] 10-05-2023 06:00-0500 Body weight 113.5 kg Elvi Schreiber MD Work Phone: 2(076)102-134186 [place] [address] 09-27-2023 09:40-0500 Body temperature 98.6 [degF] Elvi Schreiber MD Work Phone: 3(330)436-195786 [place] [address] 09-27-2023 09:40-0500 SaO2% (BldA) [Mass fraction] 95.0 % Elvi Schreiber MD Work Phone: 7(238)702-130486 [place] [address] 09-27-2023 09:40-0500 SaO2% (BldA) [Mass fraction] 100 % Elvi Schreiber MD Work Phone: 3(021)150-002386 [place] [address] 09-23-2023 05:38-0500 Body temperature 98.6 [degF] Elvi Schreiber MD Work Phone: 9(054)014-599486 [place] [address] 09-23-2023 05:38-0500 SaO2% (BldA) [Mass fraction] 99.0 % Elvi Schreiber MD Work Phone: 6(113)217-814886 [place] [address] 09-23-2023 05:38-0500 SaO2% (BldA) [Mass fraction] 100 % Elvi Schreiber MD Work Phone: 2(587)474-978686 [place] [address] 09-22-2023 12:39-0500 Body temperature 98.6 [degF] Elvi Schreiber MD Work Phone: [facility] 09-22-2023 12:39-0500 SaO2% (BldA) [Mass fraction] 95.0 % Elvi Schreiber MD Work Phone: [facility] 09-22-2023 12:39-0500 SaO2% (BldA) [Mass fraction] 88 % Elvi Schreiber MD Work Phone: [facility] 09-20-2023 15:10-0500 Body height 165.1 cm Evli Schreiber MD Work Phone: [facility] Encounters Encounter Date Encounter Type Care Provider Facility Start: 12-31-2023 End: 12-31-2023 ambulatory BRANDON LORENA [facility] Start: 12-22-2023 End: 12-29-2023 Evaluation and management of inpatient CAROL Akua FRIDA [facility] Start: 12-22-2023 End: 12-29-2023 Emergency department patient visit SALBADOR DUTTON [facility] Start: 12-22-2023 End: 12-29-2023 Evaluation and management of inpatient Justyn A Melita HERNANDEZ Work Phone: [facility] - NURYS 5E Acute Start: 12-22-2023 End: 12-22-2023 ambulatory MITRA CROWELL [facility] Start: 12-18-2023 Telephone encounter Luke Daigle CMA, PHN [facility] Comment on above: Hospital Follow-up ( 2-4 week F/U ) Start: 12-16-2023 Orders Only Mitra Crowell MD Work Phone: [facility] Comment on above: Rectal cancer (CMS-H CC) (Primary Dx) Start: 12-11-2023 Orders Only Mitra Crowell MD Work Phone: [facility] Start: 12-10-2023 Telephone encounter Shira Mccarthy [facility] Comment on above: Clearance Start: 12-09-2023 Telephone encounter Linda Agarwal [employer] Work Phone: [facility] Start: 12-04-2023 End: 12-04-2023 Evaluation and management of inpatient CARIN ROBERTO [facility] Start: 11-30-2023 End: 12-04-2023 Evaluation and management of inpatient [facility] Start: 11-30-2023 End: 12-04-2023 Evaluation and management of inpatient [facility] Start: 11-29-2023 End: 12-04-2023 Evaluation and management of inpatient [facility] ELISEO [facility] Start: 11-27-2023 Telephone encounter Cesia Monzon [facility] Start: 11-26-2023 End: 12-04-2023 Evaluation and management of inpatient KELLI POLLARD [facility] Start: 11-25-2023 Telephone encounter Francie [facility] Comment on above: Hospital Follow-up Start: 11-23-2023 End: 12-04-2023 Evaluation and management of inpatient [facility] Start: 11-21-2023 End: 12-04-2023 Evaluation and management of inpatient JAIME DAVIS [facility] Start: 11-20-2023 End: 12-04-2023 Evaluation and management of inpatient SALBADOR HOWELL [facility] Start: 11-18-2023 End: 12-04-2023 Evaluation and management of inpatient HALEY [facility] Start: 11-18-2023 End: 12-04-2023 Evaluation and management of inpatient COLLEEN CAMPBELL [facility] Start: 11-17-2023 End: 12-04-2023 Evaluation and management of inpatient [facility] Start: 11-16-2023 End: 12-04-2023 Evaluation and management of inpatient DILLON U [facility] Start: 11-13-2023 Telephone encounter Luke WARREN [facility] Comment on above: Hospital Follow-up ( 2-4 week follow up ) Start: 11-13-2023 End: 12-04-2023 Evaluation and management of inpatient TRISTAN TODD [facility] Start: 11-12-2023 End: 12-04-2023 Evaluation and management of inpatient [facility] Start: 11-11-2023 End: 12-04-2023 Evaluation and management of inpatient REGINA BEAUCHAMP [facility] Start: 11-10-2023 End: 12-04-2023 Evaluation and management of inpatient [facility] Start: 11-09-2023 End: 12-04-2023 Evaluation and management of inpatient [facility] Start: 11-08-2023 End: 12-04-2023 Evaluation and management of inpatient [facility] Start: 11-07-2023 End: 11-14-2023 Evaluation and management of inpatient [facility] Start: 11-07-2023 End: 12-04-2023 Evaluation and management of inpatient [facility] Start: 11-07-2023 End: 12-04-2023 Evaluation and management of inpatient FAVIO LINTON [facility] Start: 11-06-2023 Telephone encounter Luke Daigle CMA [facility] Start: 11-06-2023 End: 12-04-2023 Evaluation and management of inpatient [facility] Start: 11-05-2023 End: 12-04-2023 Evaluation and management of inpatient NATASHA ROBERTS [facility] Start: 11-03-2023 Telephone encounter Mary Kay VALENZUELA Work Phone: [facility] Start: 10-31-2023 End: 12-04-2023 Evaluation and management of inpatient CELE GUERRERO [facility] Start: 10-31-2023 End: 12-04-2023 Evaluation and management of inpatient HARMONY CHIN [facility] Start: 10-31-2023 End: 12-04-2023 Evaluation and management of inpatient GREER LEGGETT [facility] Start: 10-30-2023 End: 12-04-2023 Evaluation and management of inpatient LIV [facility]bride [facility] Start: 10-30-2023 End: 12-04-2023 Evaluation and management of inpatient LIV D [facility] Start: 10-30-2023 End: 12-04-2023 Evaluation and management of inpatient ULISSES SILVER [facility] Start: 10-27-2023 End: 12-04-2023 Evaluation and management of inpatient JOJO [facility] Start: 10-27-2023 End: 12-04-2023 Evaluation and management of inpatient [facility] Akua [facility] Start: 10-25-2023 End: 12-04-2023 Evaluation and management of inpatient MITRA ChinFay CROWELL [facility] Start: 10-24-2023 End: 12-04-2023 Evaluation and management of inpatient [facility] Start: 10-23-2023 End: 12-04-2023 [facility] Start: 10-23-2023 End: 12-04-2023 Evaluation and management of inpatient AURELIO Emmanuel PETE [facility] Start: 10-23-2023 End: 12-04-2023 Evaluation and management of inpatient JOJO [facility] Start: 10-22-2023 End: 10-22-2023 Evaluation and management of inpatient KOMAL TONG [facility] Start: 10-22-2023 End: 10-22-2023 Evaluation and management of inpatient TOMY GUZMÁN [facility] Start: 10-21-2023 End: 10-21-2023 ambulatory EMILIANO URIBE [facility] Start: 10-21-2023 End: 10-25-2023 Evaluation and management of inpatient ANDREAS VARELA [facility] Start: 10-21-2023 End: 10-22-2023 Evaluation and management of inpatient [facility] Start: 10-20-2023 End: 12-04-2023 Evaluation and management of inpatient RONNIE FITZGERALD [facility] Start: 10-20-2023 End: 10-21-2023 Evaluation and management of inpatient [facility] Start: 10-20-2023 End: 12-04-2023 Evaluation and management of inpatient YENY MIR [facility] Start: 10-19-2023 End: 12-04-2023 Evaluation and management of inpatient TANNER HARRIS [facility] Start: 10-19-2023 End: 12-04-2023 Evaluation and management of inpatient TANNER HARRIS [facility] Start: 10-19-2023 End: 10-20-2023 Evaluation and management of inpatient COLIN REYES [facility] Start: 10-17-2023 End: 10-20-2023 Emergency department patient visit JUAN LOPEZ [facility] Start: 10-17-2023 End: 10-19-2023 Evaluation and management of inpatient CAROL AKINS [facility] Start: 10-14-2023 Telephone encounter Yeny Escobar [facility] Start: 10-07-2023 End: 10-07-2023 ambulatory Giuseppe Mccarthy [facility] Start: 10-07-2023 Follow-up encounter [facility] Work Phone: [facility] Comment on above: Typical atrial flutt er (CMS-HCC) (Primary Dx) Start: 10-05-2023 End: 10-06-2023 Evaluation and management of inpatient LILIA NEWBYSARITHA [facility] Start: 10-04-2023 Documentation procedure [facility] Work Phone: [facility] Start: 09-30-2023 End: 10-06-2023 Evaluation and management of inpatient [facility] Start: 09-29-2023 End: 10-06-2023 Evaluation and management of inpatient [facility] Start: 09-28-2023 End: 10-06-2023 Evaluation and management of inpatient [facility] Start: 09-27-2023 End: 10-06-2023 Evaluation and management of inpatient [facility] Start: 09-27-2023 End: 10-06-2023 Evaluation and management of inpatient [facility] Start: 09-22-2023 End: 10-06-2023 Evaluation and management of inpatient GREER Estrada [facility] Start: 09-21-2023 End: 10-06-2023 Evaluation and management of inpatient DAMIÁN [facility] Start: 09-20-2023 End: 10-06-2023 Evaluation and management of inpatient DEDE [facility] Start: 09-20-2023 End: 10-05-2023 Evaluation and management of inpatient TANNER HARRIS [facility] Start: 09-20-2023 End: 10-05-2023 Evaluation and management of inpatient Tanner Harris MD Work Phone: [facility] - GEN 7 Acute Start: 09-20-2023 End: 09-21-2023 Emergency department patient visit PATRICK [facility] Start: 09-20-2023 End: 09-20-2023 Emergency department patient visit CAROL AKINS [facility] Procedures Date Procedure Procedure Detail Performing Clinician Start: 12-28-2023 End: 12-28-2023 Comprehensive metabolic panel Lexx Medina MD Work Phone: Start: 12-27-2023 Blood count hematocrit Joes Ferguson MD Work Phone: Start: 12-27-2023 Gluc [...] ENTEROSTOMAL THERAPY EVAL AND TREAT Mandi Flores [employer] Work Phone: Start: 12-25-2023 Blood count hematocrit [...] Herrera MD Work Phone: Start: 12-23-2023 Blood typing [...] Start: 12-22-2023 Ct thorax w/contrast material Salbador Van Buren DO Work Phone: Start: 12-22-2023 Ct abdomen & pelvis w/contrast material Salbador Van Buren DO Work Phone: Start: 12-22-2023 Gluc bld gluc mntr d ev cleared fda spec home use Justyn Akua Burch DO Work Phone: Start: 12-22-2023 Radiologic exam ches t single view Salbador Van Buren DO Work Phone: Start: 12-22-2023 Urnls dip stick/tabl et rgnt auto w/o microscopy Justyn Burch DO Work Phone: Start: 12-22-2023 Culture bacterial quanttative colony count urine Salbador Nato DO Work Phone: Start: 12-22-2023 ER EXTRA URINE Salbador Bl edsoe DO Work Phone: Start: 12-22-2023 End: 12-22-2023 Basic metabolic panel calcium total Salbador Nato DO Work Phone: Start: 12-22-2023 Hepatic function panel Salbador Van Buren DO Work Phone: Start: 12-22-2023 Ecg routine ecg w/le ast 12 lds trcg only w/o i&r Justyn Burch DO Work Phone: Start: 12-22-2023 End: 12-22-2023 Culture bacterial blood aerobic w/id isolates Salbador Dutton DO Work Phone: Start: 10-18-2023 Microalbumin [Mass/v olume] in Urine by Test strip Luke Daigle BIT BENDER Start: 10-05-2023 Gluc bld gluc mntr d [...] 10-04-2023 Basic metabolic pane l calcium total Rabridget Schreiber MD Work Phone: Start: 10-03-2023 Gluc [...] End: 10-02-2023 Comprehensive metabolic panel Jaime Tellopkins [employer] Work Phone: Start: 10-02-2023 Drug screen quantita [...] 10-01-2023 Comprehensive metabo lic panel Jaime Tellopkins [employer] Work Phone: Start: 09-30-2023 Gluc bld gluc mntr d ev cleared fda spec home use Tanner Harris MD Work Phone: Start: 09-30-2023 End: 09-30-2023 Potassium serum plasma/whole blood Salbador Howell [employer] Work Phone: Start: 09-30-2023 Gluc bld gluc mntr d ev cleared fda spec home use Tanner Harris MD Work Phone: Start: 09-30-2023 Gluc bld gluc mntr d ev cleared fda spec home use Tanner Harris MD Work Phone: Start: 09-30-2023 Radiologic exam ches t single view Jaime Tellopkins [employer] Work Phone: Start: 09-30-2023 Comprehensive metabo lic panel Jaime Tellopkins [employer] Work Phone: Start: 09-29-2023 Gluc bld gluc mntr d ev cleared fda spec home use Tanner Harris MD Work Phone: Start: 09-29-2023 Gluc bld gluc mntr d ev cleared fda spec home use Tanner Harris MD Work Phone: Start: 09-29-2023 Gluc bld gluc mntr d ev cleared fda spec home use Tanner Harris MD Work Phone: Start: 09-29-2023 Assay of magnesium Kalyan Howell [employer] Work Phone: Start: 09-29-2023 Gluc bld gluc mntr d ev cleared fda spec home use Tanner Harris MD Work Phone: Start: 09-29-2023 Radiologic exam ches t single view Jaime Tellopkins [employer] Work Phone: Start: 09-29-2023 Comprehensive metabo lic panel Jaime Tellopkins [employer] Work Phone: Start: 09-28-2023 Gluc bld gluc [...] exam ches t single view Jaime Davis [employer]ERIAL [employer]ER [employer]ND [employer] WEL[employer] Work Phone: Start: 09-28-2023 Blood count complete auto&auto difrntl wbc Jaime Davis [employer]ERIAL HAND[employer] W[employer] Work Phone: Start: 09-28-2023 Comprehensive metabo lic panel Jaime Davis [employer]ERIAL HAND[employer]ER [employer] W[employer]DER Work Phone: Start: 09-27-2023 Calcium ionized Brigida [...] bl ood aerobic w/id isolates Danie Reid [employer] HAND[employer]ER [employer] W[employer] Work Phone: Start: 09-27-2023 End: 09-27-2023 Culture bacterial quanttative colony count urine Danie Reid [employer] Work Phone: Start: 09-27-2023 Comprehensive metabo lic panel Greer Leggett PA-C Work Phone: Start: 09-26-2023 Antibody identificat ion platelet antibodies Keron Stahl [employer]ERIAL [employer]ER [employer] W[employer] Work Phone: Start: 09-26-2023 End: 09-26-2023 Basic metabolic panel calcium total Greer Estrada [employer] Work Phone: Start: 09-25-2023 Gluc bld gluc [...] 09-25-2023 Comprehensive metabo lic panel Greer S [employer] Work Phone: Start: 09-24-2023 Gluc bld gluc mntr d ev cleared fda spec home use Tanner Harris MD Work Phone: Start: 09-24-2023 Gluc bld gluc mntr d ev cleared fda spec home use Tanner Harris MD Work Phone: Start: 09-24-2023 Gluc bld gluc mntr d ev cleared fda spec home use Tanner Harris MD Work Phone: Start: 09-24-2023 [id number] PANEL INTERPRETATION Keron Stahl [employer]ERIAL HAND[employer]ER [employer] W[employer] Work Phone: Start: 09-24-2023 Cyanocobalamin vitamin b-12 Keron Gtzs MATERIAL HAND[employer]ER [employer]ND [employer] WELDER Work Phone: Start: 09-24-2023 Gluc bld gluc mntr d ev cleared fda spec home use Tanner Harris MD Work Phone: Start: 09-24-2023 CLINICAL PATHOLOGY B LOOD SMEAR REVIEW Samanta Wright MD Work Phone: Start: 09-24-2023 Gluc bld gluc mntr d ev cleared fda spec home use Tanner Harris MD Work Phone: Start: 09-24-2023 Comprehensive metabo lic panel Marielena Arias MATERIAL HAND[employer]ER 2ND [employer] W[employer]DER Work Phone: Start: 09-23-2023 Gluc bld gluc mntr d ev cleared fda spec home use Tanner Harris MD Work Phone: Start: 09-23-2023 Culture bacterial quanttative colony count urine Luly Marcial [employer]ERIAL HAND[employer]ER [employer] Work Phone: Start: 09-23-2023 End: 09-23-2023 Gluc [...] Comprehensive metabo lic panel Marielena M Jessejohnny MATERIAL HAND[employer]ER [employer] W[employer]DER Work Phone: Start: 09-23-2023 VENTILATION Damián Segura [...] 09-22-2023 End: 09-22-2023 Calcium ionized Salbador Monika [employer] Work Phone: Start: 09-22-2023 REPEATED ABORH Salbador Briones hroeder MATERIAL HAND[employer]ND [employer]DER Work Phone: Start: 09-22-2023 Basic metabolic pane l calcium total Salbador Howell [employer]ERIAL HAND[employer]ER [employer]ND [employer] Work Phone: Start: 09-22-2023 End: 09-22-2023 Electrolyte [...] venous cath age 7 yr/> Shiraz Delgado MATERIAL HAND[employer]ER [employer]ND [employer] W[employer]DER Work Phone: Start: 09-21-2023 Radiologic exam ches t single view Damián Eng MD Work Phone: Start: 09-21-2023 Electrolyte panel Jessica Rivera MD Work Phone: Start: 09-21-2023 Gluc bld gluc mntr d ev cleared fda spec home use Tanner Harris MD Work Phone: Start: 09-21-2023 Basic metabolic pane l calcium total Salbador Howell [employer]ERIAL [employer]ER [employer] Work Phone: Start: 09-21-2023 Electrolyte panel Jessica Rivera MD Work Phone: Start: 09-20-2023 Gluc bld [...] Basic metabolic panel calcium total Salbador Howell [employer]ERIAL HAND[employer]ER [employer] Work Phone: Start: 09-20-2023 Blood typing serologic abo Salbador Howell [employer]ERIAL HAND[employer]ER [employer] Work Phone: Start: 09-20-2023 REPEATED ABORH Salbador Sc hroeder MATERIAL HAND[employer]ER [employer]ND [employer] W[employer]DER Work Phone: Start: 09-20-2023 End: 09-20-2023 Gluc bld gluc mntr dev cleared fda spec home use Tanner Harris MD Work Phone: Start: 09-20-2023 Adult depression scr eening assessment [employer] Work Phone: Start: 09-20-2023 CLINICAL PATHOLOGY Vidh kelsey Rivera DO Work Phone: Plan of Treatment Date Care Activity Detail Author Start: 12-23-2024 Adult BMI Screening Adult BMI Screening [facility] Start: 12-21-2024 Tobacco Screening Tobacco Screening [facility] Start: 12-02-2024 Adult BMI Screening Adult BMI Screening [facility] Start: 11-27-2024 Tobacco Screening Tobacco Screening [facility] Start: 11-26-2024 Adult BMI Screening Adult BMI Screening [facility] Start: 11-23-2024 Adult BMI Follow Up Plan Adult BMI Follow Up Plan [facility] Start: 11-13-2024 Adult BMI Screening Adult BMI Screening [facility] Start: 11-06-2024 Adult BMI Screening Adult BMI Screening [facility] Start: 11-01-2024 Adult BMI Follow Up Plan Adult BMI Follow Up Plan [facility] Start: 10-23-2024 Tobacco Screening Tobacco Screening [facility] Start: 10-19-2024 Adult BMI Follow Up Plan Adult BMI Follow Up Plan [facility] Start: 10-18-2024 Urine screening for protein Urine Microalbumin [facility] Start: 10-05-2024 Adult BMI Screening Adult BMI Screening [facility] Start: 10-03-2024 Adult BMI Screening Adult BMI Screening [facility] Start: 09-20-2024 Depression Screening Depression Screening [facility] Start: 09-20-2024 Tobacco Screening Tobacco Screening [facility] Start: 01-31-2024 End: 01-31-2024 ambulatory Jasmin Bojorquez [facility] Start: 01-31-2024 End: 01-31-2024 Patient encounter procedure 01/31/2024 10:30 AM EDT Office Visit Jasmin Bojorquez [facility] [address] [place] [phone] Pablo Barnes MD [address] [place] [address] Jasmin Bojorquez [facility] Start: 01-10-2024 End: 01-10-2024 ambulatory [facility] Start: 01-10-2024 End: 01-10-2024 Patient encounter procedure 01/10/2024 11:30 AM EDT Office Visit [facility] [address] [place] [phone] Mitra Crowell MD [address] [place] [address] [facility] Start: 12-20-2023 End: 12-20-2023 Patient encounter procedure 12/20/2023 2:00 PM EDT Appointment [facility] - MRI [address] [place] [phone] [facility] Start: 12-16-2023 End: 12-15-2024 MR Pelvis WO and W contrast IV MR pelvis with and without contrast Imaging STAT Rectal cancer ([facility]) Expected: 12/16/2023, Expires: 12/15/2024 [facility] Work Phone: Comment on above: Expected: 12/16/2023, Expires: Start: 11-29-2023 End: 11-29-2023 ambulatory Jasmin Bojorquez [facility] Start: 11-29-2023 End: 11-29-2023 Patient encounter procedure 11/29/2023 2:30 PM EST Office Visit Jasmin Bojorquez [facility] [address] [place] [phone] Pablo Barnes MD [address] [place] [address] Jasmin Bojorquez [facility] Start: 11-28-2023 End: 11-28-2023 EXAM UNDER ANESTHESIA EXAM UNDER ANESTHESIA RECTAL MASS 11/28/2023 1:00 PM EST [facility] Start: 11-28-2023 End: 11-28-2023 Sigmoidoscopy flx dx w/collj spec br/wa if pfrmd FLEXIBLE SIGMOIDOSCOPY RECTAL MASS 11/28/2023 1:00 PM EST [facility] Start: 10-15-2023 End: 10-15-2023 ambulatory [facility] Start: 10-15-2023 End: 10-15-2023 Patient encounter procedure 10/15/2023 10:15 AM EST Office Visit [facility] [address] [place] [phone] Aldo Dudley MD [address] [place] [address] [facility] Start: 10-11-2023 End: 10-04-2024 Basic metabolic 2000 panel - Serum or Plasma [facility] Start: 05-31-2023 COVID-19 Vaccine () COVID-19 Vaccine ( season) [facility] Start: 05-31-2023 Influenza vaccination Influenza Vaccine [facility] Start: 2022 Fall Risk Screening Fall Risk Screening [facility] Start: 03-23-2021 COVID-19 Vaccine (3 - Pfizer risk series) COVID-19 Vaccine (3 - Pfizer risk series) [facility] Start: 2007 Administration of varicella zoster vaccine Zoster (Shingles) Vaccine (1 of 2) [facility] Start: 1976 Administration of varicella zoster vaccine Zoster (Shingles) Vaccine (1 of 2) [facility] Start: 1976 DTaP,Tdap and Td Vaccines (1 - Tdap) DTaP,Tdap and Td Vaccines (1 - Tdap) [facility] Start: 1975 Adult BMI Follow Up Plan Adult BMI Follow Up Plan [facility] Start: 1975 Diabetic foot examination Diabetic Foot Exam [facility] Start: 1957 Glaucoma screening Diabetic Ophthalmology Exam [facility] Start: 1957 Medicare Annual Wellness Visit Medicare Annual Wellness Visit [facility] Start: 1957 Tobacco Counseling Tobacco Counseling [facility] Start: 1957 Urine screening for protein Urine Microalbumin [facility] End: 10-06-2023 Basic metabolic 2000 panel - Serum or Plasma [facility] Bedside Glucose *Emerson ce/Obtain serum glucose if >500(>600 MRH) per glucometer. [facility] Bedside Glucose *Emerson ce/Obtain serum glucose if >500(>600 MRH) per glucometer. [facility] End: 10-06-2023 CBC W Auto Differential panel - Blood [facility] CBC W Auto Different ial panel - Blood [facility] Comprehensive metabo lic 2000 panel - Serum or Plasma [facility] End: 10-08-2023 Digoxin level [facility] Work Phone: End: 12-08-2024 Esophagogastroduodenoscopy EGD GI Routine Esophagitis 1 Occurrences starting 12/09/2023 until 12/08/2024 [facility] Work Phone: Comment on above: 1 Occurrences starting 12/09/2023 until 12/08/2024 End: 12-23-2023 Haptoglobin [facility] Work Phone: End: 09-22-2023 Hemodialysis inpatient [facility] Work Phone: End: 12-24-2023 Hemoglobin and hematocrit, blood [facility] Hemoglobin and hematocrit, blood [facility] Work Phone: End: 10-06-2023 Magnesium [Mass/volume] in Serum or Plasma [facility] Oxygen Therapy - Sally ntain SpO2: 90%; *BOILERMAKER APPRENTICE Guidelines for O2: Yes; Document: \[employer]\epic\EPIC_Re ference\Orders\Respiratory Care Guidelines\CPG Oxygen 2020.pdf [facility] Work Phone: Oxygen Therapy - Sally ntain SpO2: 90%; *BOILERMAKER APPRENTICE Guidelines for O2: Yes; Document: \[employer]\epic\EPIC_Re ference\Orders\Respiratory Care Guidelines\CPG Oxygen 2020.pdf [facility] Work Phone: End: 10-07-2023 Platelets [#/volume] in Blood [facility] Work Phone: Protime & INR [facility] Work Phone: End: 12-23-2023 Troponin I.cardiac [Mass/volume] in Serum or Plasma [facility] End: 12-24-2023 Troponin I.cardiac [Mass/volume] in Serum or Plasma [facility] Work Phone: End: 12-25-2023 Type and screen(includes indirect aram) [facility] Work Phone: Immunizations Immunization Date Immunization Notes Care Provider Fa salas 10-14-2021 Influenza, injectabl e, Madin Mangham Canine Kidney, preservative free, quadrivalent [employer] [facility] 10-14-2021 influenza virus vaccine, unspecified formulation [employer] Work Phone: [facility] 07-31-2020 influenza, injectabl e, quadrivalent, contains preservative [employer] Work Phone: [facility] Payers Date Payer Category Payer Private Health Insurance [id number] 2022 Private Health Insurance [id number] 2022 Medicare [id number] 2022 Medicare [id number] 1957 Unknown [id number] 2.16.84 [id number] 1957 Unknown [id number] 2.16.84 [id number] 1957 Unknown [id number] 2.16.84 [id number] 1957 Unknown [id number] 2.16.84 [id number] 1957 Unknown [id number] 2.16.84 [id number] 1957 Unknown [id number] 2.16.84 [id number] 1957 Unknown [id number] 2.16.84 [id number] 1957 Unknown [id number] 2.16.84 [id number] 1957 Unknown [id number] 2.16.84 [id number] 1957 Unknown [id number] 2.16.84 [id number] 1957 Unknown [id number] 2.16.84 [id number] Social History Date Type Detail Facility Start: 09-20-[address] [facility] sm[facility] History of tobacco use Cigarette Smoker P [facility] Start: 09-20-2023 Tobacco use and exposure Smokeless tobacco non-user [facility] Start: 09-20-2023 End: 12-23-2023 Alcohol intake Lifetime non-drinker (finding) [facility] Start: 11-10-2020 End: 09-30-2023 History of Social function [facility] Start: 11-10-2020 End: 09-30-2023 [facility] Utilities [facility] Has the [employer], or [employer] threatened to shut off services in your home in past 12Mo No [facility] How often to you hav e a drink containing alcohol? Never [facility] How many standard drinks containing alcohol do you have on a typical day? Patient does not drink [facility] Start: 09-20-2023 Tobacco Comment 2 cigarettes a day P [facility] Start: 1955 Sex Assigned At Not on file P [facility] Goals Date Patient Goal Desired Activity [...] Suresh - 12/28/2023 10:15 AM [facility] Yareli Ny RN - 12/28/2023 7:50 AM EDT Note Date & Type Note Facility 02-12-2024 Note 2ND ATTEMPT, NO ANSW ER LMOM. ALSO RECEIVED MORE RECORDS FROM OFFICE, CALLED AND LEFT THE NURSES LINE A MESSAGE INFORMING THEM OF THIS. [facility] 02-12-2024 Note Received referral fo r rectal cancer, called patient to set up an appt with Dr. Manriquez, no answer LMOM to contact me directly to set up an appt. [facility] 12-28-2023 Miscellaneous Notes DISCHARGE PLANNING NOTE DC to [facility] today at 7pm Transport time changed to 7pm as facility cannot take her till then. [facility] faxed and DC packet prepared. RN given number to call report. Crista Marcial RN DISCHARGE PLANNING NOTE BLS transport [facility] on 12/28/23 at 1500 hours via PTN. Spoke with Robert at [facility] [place] Problem: Pain Goal: Patient goal is pain score less than 4, able to rest, and participant in treatment plan as appropriate Description: INTERVENTIONS: 1. Encourage patient or legal promotions representative to report early pain and ask [...] per policy 9. Teach patient or legal promotions representative interventions for comforting Outcome: Progressing Note: [...] at the bedside 7. Instruct patient/ patient promotions representative about use of safety devices 8. Include patient/ patient promotions representative in decisions related to safety Outcome: [...] hygiene technique 7. Identify and instruct patient/patient promotions representative in use of appropriate isolation precautions for identified infection/symptoms 8. Provide and discuss with patient/patient promotions representative on educational MDRO sheet 9. Encourage and monitor nutritional status daily and consult consulting solution manager if indicated 10. Implement neutropenic guidelines as [...] to monitor. Problem: Knowledge Deficit Goal: Patient/patient promotions representative demonstrates understanding of disease process, treatment [...] Moderate - High Risk Fall Score Description: [place] Fall Score of =/> 25 or indicated by [facility] Assessment Goal: Patient should be free from fall Description: Interventions: 1. [place] to environment 2. Hourly rounds addressing the [...] non-skid footwear 11. Teach patient and patient promotions representative to maintain environment for safety and [...] (cane, walker) within reach 19. Request patient promotions representative bring adaptive equipment/mobility aids from home or obtain and provide as needed 20. Consult pharmacy regarding effects of med's affecting mobility, cognition, and alternatives 21. Obtain physician order for PT if risk factors associated with mobility are present 22. Obtain physician order for OT as appropriate 23. Utilize diversional activities 24. Educate patient and patient promotions representative how to maintain a safe environment during visitation times (notify nurse prior to leaving bedside) 25. Consider appropriateness of medical or non-medical information specialist 26. Set up voiding schedule as appropriate [...] Description: INTERVENTIONS: 1. Encourage patient or legal promotions representative to report early pain and ask [...] per policy 9. Teach patient or legal promotions representative interventions for comforting Note: Evaluation of [...] at the bedside 7. Instruct patient/ patient promotions representative about use of safety devices 8. Include patient/ patient promotions representative in decisions related to safety Note: [...] hygiene technique 7. Identify and instruct patient/patient promotions representative in use of appropriate isolation precautions for identified infection/symptoms 8. Provide and discuss with patient/patient promotions representative on educational MDRO sheet 9. Encourage and monitor nutritional status daily and consult consulting solution manager if indicated 10. Implement neutropenic guidelines as [...] worsening infection. Problem: Knowledge Deficit Goal: Patient/patient promotions representative demonstrates understanding of disease process, treatment [...] should any further needs arise. - Debora Wooetn RN 12/27/23 1:59 PM Enterostomal Therapy ET [...] Description: INTERVENTIONS: 1. Encourage patient or legal promotions representative to report early pain and ask [...] per policy 9. Teach patient or legal promotions representative interventions for comforting Outcome: Progressing Note: [...] at the bedside 7. Instruct patient/ patient promotions representative about use of safety devices 8. Include patient/ patient promotions representative in decisions related to safety Outcome: [...] hygiene technique 7. Identify and instruct patient/patient promotions representative in use of appropriate isolation precautions for identified infection/symptoms 8. Provide and discuss with patient/patient promotions representative on educational MDRO sheet 9. Encourage and monitor nutritional status daily and consult consulting solution manager if indicated 10. Implement neutropenic guidelines as needed 11. Review exposure to history of communicable disease and recent travel history on admission 12. Encourage annual influenza vaccine 13. Encourage pneumonia vaccine Outcome: Progressing Note: Evaluation of progress towards goal: Patient will remain afebrile during hospital stay. Patient WBC count will remain within normal limits. Will continue to monitor. Problem: Knowledge Deficit Goal: Patient/patient promotions representative demonstrates understanding of disease process, treatment [...] Score of =/> 25 or indicated by [facility] Assessment Goal: Patient should be free from fall Description: Interventions: 1. [place] to environment 2. Hourly rounds addressing the [...] non-skid footwear 11. Teach patient and patient promotions representative to maintain environment for safety and [...] (cane, walker) within reach 19. Request patient promotions representative bring adaptive equipment/mobility aids from home or obtain and provide as needed 20. Consult pharmacy regarding effects of med's affecting mobility, cognition, and alternatives 21. Obtain physician order for PT if risk factors associated with mobility are present 22. Obtain physician order for OT as appropriate 23. Utilize diversional activities 24. Educate patient and patient promotions representative how to maintain a safe environment during visitation times (notify nurse prior to leaving bedside) 25. Consider appropriateness of medical or non-medical information specialist 26. Set up voiding schedule as appropriate [...] on patient's door 9. Provide patient/ patient promotions representative with isolation education. Outcome: Progressing Note: [...] supplement as ordered 13. Collaborate with clinical consulting solution manager 14. Include patient/ patient's promotions representative in decisions related to nutrition Outcome: Not Progressing Note: Evaluation of progress towards goal: poor intake Problem: Pain Goal: Patient goal is pain score less than 4, able to rest, and participant in treatment plan as appropriate Description: INTERVENTIONS: 1. Encourage patient or legal promotions representative to report early pain and ask [...] per policy 9. Teach patient or legal promotions representative interventions for comforting Outcome: Progressing Note: [...] at the bedside 7. Instruct patient/ patient promotions representative about use of safety devices 8. Include patient/ patient promotions representative in decisions related to safety Outcome: [...] hygiene technique 7. Identify and instruct patient/patient promotions representative in use of appropriate isolation precautions for identified infection/symptoms 8. Provide and discuss with patient/patient promotions representative on educational MDRO sheet 9. Encourage and monitor nutritional status daily and consult consulting solution manager if indicated 10. Implement neutropenic guidelines as needed 11. Review exposure to history of communicable disease and recent travel history on admission 12. Encourage annual influenza vaccine 13. Encourage pneumonia vaccine Outcome: Progressing Note: Evaluation of progress towards goal: Monitor for s/sx of infection, treat per orders. Problem: Knowledge Deficit Goal: Patient/patient promotions representative demonstrates understanding of disease process, treatment [...] discharge planning process 5. Communicate referral to family life educator as appropriate 6. Communicate referral to consulting solution manager as appropriate 7. Collaborate with case management/social group worker for discharge needs Outcome: Progressing Note: [...] Score of =/> 25 or indicated by [facility] Assessment Goal: Patient should be free from fall Description: Interventions: 1. [place] to environment 2. Hourly rounds addressing the [...] non-skid footwear 11. Teach patient and patient promotions representative to maintain environment for safety and [...] (cane, walker) within reach 19. Request patient promotions representative bring adaptive equipment/mobility aids from home or obtain and provide as needed 20. Consult pharmacy regarding effects of med's affecting mobility, cognition, and alternatives 21. Obtain physician order for PT if risk factors associated with mobility are present 22. Obtain physician order for OT as appropriate 23. Utilize diversional activities 24. Educate patient and patient promotions representative how to maintain a safe environment during visitation times (notify nurse prior to leaving bedside) 25. Consider appropriateness of medical or non-medical information specialist 26. Set up voiding schedule as appropriate [...] Handoff to next level of care provider (career information specialist, PCP, home care). 5. Complete follow up [...] on patient's door 9. Provide patient/ patient promotions representative with isolation education. Outcome: Progressing Note: [...] soon as possible. Mayra Rouse DNP,DOLORES, SHRUTI [facility] Service Line Pager #[phone] Sat-Sat 8a-4:00p [phone] NICOLAS Vazquez 12/26/23 1510 DISCHARGE PLANNING NOTE [...] Description: INTERVENTIONS: 1. Encourage patient or legal promotions representative to report early pain and ask [...] per policy 9. Teach patient or legal promotions representative interventions for comforting Outcome: Progressing Note: [...] at the bedside 7. Instruct patient/ patient promotions representative about use of safety devices 8. Include patient/ patient promotions representative in decisions related to safety Outcome: Progressing Note: Evaluation of progress towards goal: Patient remains free of falls and injury this shift. PPH NIGHT Patient's hemoglobin has continued to trend down, most recent 6.8. Fire Alarm Technician obtained verbal consent for blood transfusion over [...] at the bedside 7. Instruct patient/ patient promotions representative about use of safety devices 8. Include patient/ patient promotions representative in decisions related to safety Outcome: [...] - Unknown Thank you, BRIGID Oden Clinical Wood Flooring Specialist Clinical Documentation Integrity Email: [email or web address] The Clinical Documentation Integrity (CDI) staff are [...] determine - Unknown Thank you, Tara Lantigua RESTORATIVE CARE TECHNICIAN Clinical Wood Flooring Specialist Clinical Documentation Integrity Email: [email or web address] The Clinical Documentation Integrity (CDI) staff are working remotely. If you have any questions or concerns regarding this query, please feel free to call or send via e-mail. The patient's Clinical Indicators include: See Query CDI RESPONSE TEXT: Clinically unable to determine. Query created by: Tara Lantigua on 12/25/2023 9:42 AM Electronically signed by: Radha Villagomez MD 12/25/2023 11:46 AM Fire Alarm Technician spoke with Dr. De Paz with Nephrology. [...] Description: INTERVENTIONS: 1. Encourage patient or legal promotions representative to report early pain and ask [...] per policy 9. Teach patient or legal promotions representative interventions for comforting Outcome: Progressing Note: [...] at the bedside 7. Instruct patient/ patient promotions representative about use of safety devices 8. Include patient/ patient promotions representative in decisions related to safety Outcome: [...] hygiene technique 7. Identify and instruct patient/patient promotions representative in use of appropriate isolation precautions for identified infection/symptoms 8. Provide and discuss with patient/patient promotions representative on educational MDRO sheet 9. Encourage and monitor nutritional status daily and consult consulting solution manager if indicated 10. Implement neutropenic guidelines as needed 11. Review exposure to history of communicable disease and recent travel history on admission 12. Encourage annual influenza vaccine 13. Encourage pneumonia vaccine Outcome: Progressing Note: Evaluation of progress towards goal: Afebrile, labs and VS monitored Problem: Knowledge Deficit Goal: Patient/patient promotions representative demonstrates understanding of disease process, treatment [...] be free from fall Description: Interventions: 1. [place] to environment 2. Hourly rounds addressing the [...] non-skid footwear 11. Teach patient and patient promotions representative to maintain environment for safety and [...] (cane, walker) within reach 19. Request patient promotions representative bring adaptive equipment/mobility aids from home or obtain and provide as needed 20. Consult pharmacy regarding effects of med's affecting mobility, cognition, and alternatives 21. Obtain physician order for PT if risk factors associated with mobility are present 22. Obtain physician order for OT as appropriate 23. Utilize diversional activities 24. Educate patient and patient promotions representative how to maintain a safe environment during visitation times (notify nurse prior to leaving bedside) 25. Consider appropriateness of medical or non-medical information specialist 26. Set up voiding schedule as appropriate [...] Description: INTERVENTIONS: 1. Encourage patient or legal promotions representative to report early pain and ask [...] per policy 9. Teach patient or legal promotions representative interventions for comforting Outcome: Progressing Note: [...] at the bedside 7. Instruct patient/ patient promotions representative about use of safety devices 8. Include patient/ patient promotions representative in decisions related to safety Outcome: [...] hygiene technique 7. Identify and instruct patient/patient promotions representative in use of appropriate isolation precautions for identified infection/symptoms 8. Provide and discuss with patient/patient promotions representative on educational MDRO sheet 9. Encourage and monitor nutritional status daily and consult consulting solution manager if indicated 10. Implement neutropenic guidelines as needed 11. Review exposure to history of communicable disease and recent travel history on admission 12. Encourage annual influenza vaccine 13. Encourage pneumonia vaccine Outcome: Progressing Note: Evaluation of progress towards goal: Pt continuing IV antibiotics Problem: Knowledge Deficit Goal: Patient/patient promotions representative demonstrates understanding of disease process, treatment [...] Score of =/> 25 or indicated by [facility] Assessment Goal: Patient should be free from fall Description: Interventions: 1. [place] to environment 2. Hourly rounds addressing the [...] non-skid footwear 11. Teach patient and patient promotions representative to maintain environment for safety and [...] (cane, walker) within reach 19. Request patient promotions representative bring adaptive equipment/mobility aids from home or obtain and provide as needed 20. Consult pharmacy regarding effects of med's affecting mobility, cognition, and alternatives 21. Obtain physician order for PT if risk factors associated with mobility are present 22. Obtain physician order for OT as appropriate 23. Utilize diversional activities 24. Educate patient and patient promotions representative how to maintain a safe environment during visitation times (notify nurse prior to leaving bedside) 25. Consider appropriateness of medical or non-medical information specialist 26. Set up voiding schedule as appropriate [...] been trying to transfer his back to [facility] for the past 2 days but he has not been able successful with that. I advised the that if he iss not satisfied with the patient's healthcare here we can help him with transferring to another facility, unlikely [facility] would be an appropriate health care facility given the patient's current health status given her sepsis, AFib with RVR and elevated troponin. Encouraged the to talk to [facility] about why the patient was transferred to the [facility] in the 1st place. The hung up the phone without further discussion. DISCHARGE PLANNING NOTE Case discussed in daily transition rounds and chart reviewed by CN. Barriers to discharge include IV abx, cultures pending, monitoring HR, Heparin gtt, monitoring/replacing electrolytes, ID consult, Med-Onc consult Discharge Plan remains: return to [facility]. Referral sent. CN will continue to follow and is available should any further needs arise. - Anel Brown RN 12/24/23 10:03 AM Problem: Pain Goal: Patient goal is pain score less than 4, able to rest, and participant in treatment plan as appropriate Description: INTERVENTIONS: 1. Encourage patient or legal promotions representative to report early pain and ask [...] per policy 9. Teach patient or legal promotions representative interventions for comforting Note: Evaluation of [...] at the bedside 7. Instruct patient/ patient promotions representative about use of safety devices 8. Include patient/ patient promotions representative in decisions related to safety Note: [...] hygiene technique 7. Identify and instruct patient/patient promotions representative in use of appropriate isolation precautions for identified infection/symptoms 8. Provide and discuss with patient/patient promotions representative on educational MDRO sheet 9. Encourage and monitor nutritional status daily and consult consulting solution manager if indicated 10. Implement neutropenic guidelines as [...] worsening infection. Problem: Knowledge Deficit Goal: Patient/patient promotions representative demonstrates understanding of disease process, treatment [...] was transported yesterday to the ED, from [facility] facility. As per report, patient went to [...] ANTONIO MD, PGY-2, DEPARTMENT OF INTERNAL MEDICINE, [place], [place]. Associated attestation - Radha Villagomez MD [...] ANTONIO MD, PGY-2, DEPARTMENT OF INTERNAL MEDICINE, [place], [place]. Associated attestation - Radha Villagomez MD [...] Description: INTERVENTIONS: 1. Encourage patient or legal promotions representative to report early pain and ask [...] per policy 9. Teach patient or legal promotions representative interventions for comforting Outcome: Progressing Note: [...] at the bedside 7. Instruct patient/ patient promotions representative about use of safety devices 8. Include patient/ patient promotions representative in decisions related to safety Outcome: [...] hygiene technique 7. Identify and instruct patient/patient promotions representative in use of appropriate isolation precautions for identified infection/symptoms 8. Provide and discuss with patient/patient promotions representative on educational MDRO sheet 9. Encourage and monitor nutritional status daily and consult consulting solution manager if indicated 10. Implement neutropenic guidelines as [...] infection prevention. Problem: Knowledge Deficit Goal: Patient/patient promotions representative demonstrates understanding of disease process, treatment [...] discharge planning process 5. Communicate referral to family life educator as appropriate 6. Communicate referral to consulting solution manager as appropriate 7. Collaborate with case management/social group worker for discharge needs Outcome: Progressing Note: [...] supplement as ordered 13. Collaborate with clinical consulting solution manager 14. Include patient/ patient's promotions representative in decisions related to nutrition Outcome: [...] Score of =/> 25 or indicated by [facility] Assessment Goal: Patient should be free from fall Description: Interventions: 1. [place] to environment 2. Hourly rounds addressing the [...] non-skid footwear 11. Teach patient and patient promotions representative to maintain environment for safety and [...] (cane, walker) within reach 19. Request patient promotions representative bring adaptive equipment/mobility aids from home or obtain and provide as needed 20. Consult pharmacy regarding effects of med's affecting mobility, cognition, and alternatives 21. Obtain physician order for PT if risk factors associated with mobility are present 22. Obtain physician order for OT as appropriate 23. Utilize diversional activities 24. Educate patient and patient promotions representative how to maintain a safe environment during visitation times (notify nurse prior to leaving bedside) 25. Consider appropriateness of medical or non-medical information specialist 26. Set up voiding schedule as appropriate [...] Handoff to next level of care provider (career information specialist, PCP, home care). 5. Complete follow up [...] explained role, verbalized understanding. Patient is from [facility] for about a week she tells me and she would like to return to there. Tasked referral to return to [facility]. Problem: Pain Goal: Patient goal is pain score less than 4, able to rest, and participant in treatment plan as appropriate Description: INTERVENTIONS: 1. Encourage patient or legal promotions representative to report early pain and ask [...] per policy 9. Teach patient or legal promotions representative interventions for comforting Outcome: Progressing Note: [...] at the bedside 7. Instruct patient/ patient promotions representative about use of safety devices 8. Include patient/ patient promotions representative in decisions related to safety Outcome: [...] hygiene technique 7. Identify and instruct patient/patient promotions representative in use of appropriate isolation precautions for identified infection/symptoms 8. Provide and discuss with patient/patient promotions representative on educational MDRO sheet 9. Encourage and monitor nutritional status daily and consult consulting solution manager if indicated 10. Implement neutropenic guidelines as needed 11. Review exposure to history of communicable disease and recent travel history on admission 12. Encourage annual influenza vaccine 13. Encourage pneumonia vaccine Outcome: Progressing Note: Evaluation of progress towards goal: Patient will remain afebrile during hospital stay. Patient WBC count will remain within normal limits. Will continue to monitor. Problem: Knowledge Deficit Goal: Patient/patient promotions representative demonstrates understanding of disease process, treatment [...] be free from fall Description: Interventions: 1. [place] to environment 2. Hourly rounds addressing the [...] non-skid footwear 11. Teach patient and patient promotions representative to maintain environment for safety and [...] (cane, walker) within reach 19. Request patient promotions representative bring adaptive equipment/mobility aids from home or obtain and provide as needed 20. Consult pharmacy regarding effects of med's affecting mobility, cognition, and alternatives 21. Obtain physician order for PT if risk factors associated with mobility are present 22. Obtain physician order for OT as appropriate 23. Utilize diversional activities 24. Educate patient and patient promotions representative how to maintain a safe environment during visitation times (notify nurse prior to leaving bedside) 25. Consider appropriateness of medical or non-medical information specialist 26. Set up voiding schedule as appropriate (every 2 hours) Outcome: Progressing Note: Evaluation of progress towards goal: Patient will remain injury free during hospital stay. Patient bed in lowest and locked position. Patient will use call light when needing assistance. Will continue to monitor. documented in this encounter [facility] 12-28-2023 Hospital course Narrative Images from the original note were not included. 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 and they were both in agreement with the plan. The informed me that he wasn't happy with the fact she got admitted to [facility] in the first place. Discharge Medications: [...] total) by mouth in the morning. fat zzop-tpx-qex-oliv-fish oil (SMOFLIPID) 20 % emulsion infusion Infuse [...] diet Regular Texture Adult diet Laisha Felix, MATERIAL HANDLER 2ND SHIFT-HELIARC WELDER [address], [facility] [address] [facility] [id number] Follow up in 2 week(s) Pablo Barnes MD [address] [facility] [id number] Follow up Carol Akins PA-C [address] [facility] [id number] Justin Condon MD [address] [facility] [email or web address]] Pulmonary [facility] [phone] Schedule an appointment as soon as possible [...] questions. Electronically signed by: BRANDON CARRILLO MD [facility] Hospitalists, Department of Internal Medicine 12/28/23 10:27 AM documented in this encounter [facility] 12-28-2023 History of Present illness Narrative [...] Resident, PGY-2 Colorectal Surgery 6a-6p pager # [phone] 6p-6a pager #[phone] Associated attestation - Conor Gomez MD - 12/28/2023 9:28 AM EDT Attending Attestation: I saw the patient. I performed the critical/greenberg portions of the service. I was directly involved in the management and treatment plan of the patient. I reviewed the resident's note. Additional Notes/Findings: MRI performed. Patient irritated but no specific complaints. MRI pending Images from the original note were not included. [facility] Gurpreet Nagy M.D. Racquel aLngston M.D. Sonya Ruelas M.D. Sunni Stack M.D. Tara Funes, MATERIAL HANDLER 2ND SHIFT-HELIARC WELDER Keron Stahl, MATERIAL HANDLER 2ND SHIFT-HELIARC WELDER Tiffanie Segal, MATERIAL HANDLER 2ND SHIFT-[facility] Rufina Dowd, MATERIAL HANDLER 2ND SHIFT-[facility] JUAN Brown M.D. Tc Ridley M.D. Reinaldo Felder M.D. Alfred Adams M.D. Carole Gaviria, MATERIAL HANDLER 2ND SHIFT-HELIARC WELDER Jenny Calhoun, MATERIAL HANDLER 2ND SHIFT-HELIARC WELDER Yeny Medrano, MATERIAL HANDLER 2ND SHIFT-[facility] Mendy Rodrigues, MATERIAL HANDLER 2ND SHIFT-[facility] PROGRESS NOTE Subjective: [...] 5 mg, intravenous, Q6H PRN, Zayra Seals, DOLORES-HELIARC WELDER, 5 mg at 12/23/23 1531 metoprolol tartrate [...] membrane of both ears Typical atrial flutter ([facility]) Coronary artery disease involving [place] coronary artery of [place] heart without angina pectoris Tachycardia induced cardiomyopathy ([facility]) Type 2 diabetes mellitus with circulatory disorder, without long-term current use of insulin ([facility]) Other hyperlipidemia Paroxysmal atrial fibrillation ([facility]) BRANDEE (acute kidney injury) ([facility]) Hyperkalemia Bilateral lower extremity edema Systolic and diastolic CHF, acute ([facility]) Acute kidney injury ([facility]) Acute UTI (urinary tract infection) Skin ulcer of sacrum ([facility]) Altered mental status Hypokalemia CKD (chronic kidney disease) stage 4, GFR 15-29 ml/min ([facility]) Bacteremia Respiratory distress Myoclonus Pressure injury of [...] on service today, Dr. Felder. Keron Stahl, MATERIAL HANDLER 2ND SHIFT-HELIARC WELDER [facility] [address] [place] [address] [employer] is my preferred mode of contact. For after hours (evening, weekends, holidays) Hematology Oncology needs, please call the airway traffic controller service [phone]. Please ask for the MD airway traffic controller. December 28, 2023, 7:20 AM I, Reinaldo Felder MD, personally performed the face to face diagnostic evaluation on this patient. I have reviewed the CHALINO's History, Exam, and MDM and agree with the assessment and plan as written. Images from the original note were not included. [facility] Progress Note 12/27/2023 Patient Name: [...] L5 Obesity Respiratory distress 10/19/2023 Septic shock ([facility]) 12/22/2023 Systolic and diastolic CHF, acute ([facility] 09/03/2023 Visual impairment Past Surgical History: Procedure Laterality Date APPLICATION WOUND VAC N/A 11/07/2023 Performed by Mitra Crowell MD at [facility] Cardiac catheterization 02/16/2021 Performed by Kelli Su MD at [facility] CARDIAC CATH LABS Caval Tricuspid Isthmus RFA, Carto w/ICE N/A 03/21/2021 Performed by Lurdes Weinberg MD at [facility] HR (EP) COLONOSCOPY POLYPECTOMY N/A 10/23/2023 Performed by Soy Talamantes MD at [facility] Coronary angiogram and left ventricular gram/pressure N/A 02/16/2021 Performed by Kelli Su MD at [facility] CARDIAC CATH [facility]S Coronary fractional flow reserve N/A 02/16/2021 Performed by Kelli Su MD at [facility] CARDIAC CATH [facility]S CREATION OF END COLOSTOMY N/A 11/07/2023 Performed by Mitra Crowell MD at [facility] ESOPHAGOGASTRODUODENOSCOPY DIAGNOSTIC N/A 10/23/2023 Performed by Soy Talamantes MD at [facility] EXAM UNDER ANESTHESIA WITH BRECTAL BIOPSY N/A 11/28/2023 Performed by Mitra Crowell MD at [facility] EXAM UNDER ANESTHESIA/RECTAL MASS BIOPSY N/A 10/25/2023 Performed by Mitra Crowell MD at [facility] FLEXIBLE SIGMOIDOSCOPY N/A 10/25/2023 Performed by Mitra Crowell MD at [facility] FLEXIBLE SIGMOIDOSCOPY WITH BIOPSY N/A 11/28/2023 Performed by Mitra Crowell MD at [facility] INSCISIONAL DEBRIDEMENT SACRUM N/A 10/20/2023 Performed by Magdi Matthew MD at [facility] INSERT ARTERIAL LINE 11/05/2023 INSERT ARTERIAL LINE 11/07/2023 Intravascular pressure measurement first vessel each additional vessel (fractional flow reserve) N/A 02/16/2021 Performed by Kelli Su MD at [facility] CARDIAC CATH LABS INTUBATION 11/07/2023 LAPAROTOMY EXPLORATORY N/A 11/07/2023 Performed by Mitra Crowell MD at [facility] MYRINGOTOMY W/ TUBES RESECTION BOWEL SMALL N/A 11/07/2023 Performed by Mitra Crowell MD at [facility] TONSILLECTOMY OBJECTIVE Vital Signs: Temp: [36.5 C [...] Value Units Date/Time Resp Pathogens Panel/SARS CoV-2 [[id number]] Collected: 12/25/23 1158 Specimen: Nasopharynx Updated: 12/25/23 [...] SARS COV 2 Not Detected Urine culture [[id number]] (Abnormal) (Susceptibility) Collected: 12/22/23 1326 Specimen: Urine [...] Susceptible Wound culture superficial includes gram stain [[id number]] (Abnormal) (Susceptibility) Collected: 12/22/23 1231 Specimen: Wound [...] RESISTANCE TO CLINDAMYCIN DETECTED [2] CLIA ID [id number] Blood Culture [[id number]] Collected: 12/22/23 1218 Specimen: Blood Updated: 12/27/23 1310 Culture NO GROWTH 5 DAYS Blood Culture [[id number]] Collected: 12/22/23 121 Specimen: Blood Updated: 12/27/23 [...] Problems Diagnosis Date Noted Adenocarcinoma of rectum ([facility] 12/24/2023 Septic shock ([facility]) 12/22/2023 Pressure injury of sacral region, stage 4 ([facility]) 10/21/2023 Resolved Problems No resolved problems to display. - Atrial fibrillation with RVR- rate is controlled now - Hx of atypical flutter s/p ablation 02/2022 - Elevated troponin: - Hx of non obstructive CAD on [facility] 2020: - Chronic CHF with improved EF (40-45%): - No chest pain. EKG shows diffuse ST segment depression ( old). [id number] score: 5 S/p intermittent doses of digoxin. [...] from the original note were not included. [facility] [address] [place] [address] PROGRESS NOTE Harris Castrejon resting in bed. [...] Appropriate mood ASSESSMENT/PLAN Persistent AF with RVR [id number] = 5 Not on AC due to [...] tachy mediated cardiomyopathy. Atherosclerotic heart disease of [place] arteries without angina: Moderate disease 01/2021. Chronic [...] once heart rate better controlled. Tian Reddy, MATERIAL HANDLER 2ND SHIFT-HELIARC WELDER [facility] I, MAEGAN SINHA MD, I have reviewed and edited the CHALINO's History, Exam, and MDM and agree with the assessment and plan as written. -persistent atrial fibrillation with RVR: [id number] score at least 5. 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 -chronic [...] This note was completed using a voice nurse informaticist system. Every effort was made to ensure accuracy. However, inadvertent computerized nurse informaticist errors may be present. Images from the original note were not included. [facility] [address] [place] [address] PROGRESS NOTE Harris Castrejon Patient resting in [...] IMPRESSION: Cardiomegaly and vascular congestion. Finalized by aRy Vo MD on 12/22/2023 1:52 PM X-ray [...] below the diaphragm and out of the vkcnk-bi-faku. Stable position of the right PICC in [...] Chronic hypotension. -persistent atrial fibrillation with RVR: [id number] score at least 5. 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 -chronic [...] This note was completed using a voice nurse informaticist system. Every effort was made to ensure accuracy. However, inadvertent computerized nurse informaticist errors may be present. Images from the original note were not included. Division of Infectious Diseases - Progress Note Team 1 Please contact us via YellowKorner chat. After hours, call [phone] Patient name: Harris Castrejon Patient Today's Date [...] Value Units Date/Time Resp Pathogens Panel/SARS CoV-2 [[id number]] Collected: 12/25/23 1158 Specimen: Nasopharynx Updated: 12/25/23 [...] SARS COV 2 Not Detected Urine culture [[id number]] (Abnormal) (Susceptibility) Collected: 12/22/23 1326 Specimen: Urine [...] Susceptible Wound culture superficial includes gram stain [[id number]] (Abnormal) (Susceptibility) Collected: 12/22/23 1231 Specimen: Wound [...] RESISTANCE TO CLINDAMYCIN DETECTED [2] CLIA ID [id number] Blood Culture [[id number]] Collected: 12/22/23 121 Specimen: Blood Updated: 12/25/23 130 Culture NO GROWTH 3 DAYS Blood Culture [[id number]] Collected: 12/22/23 121 Specimen: Blood Updated: 12/25/23 [...] progress note was completed using a voice nurse informaticist system. Every effort was made to ensure accuracy; however, inadvertent computerized nurse informaticist errors may be present. Thank you for allowing us to participate in the care of this patient. - ROBERT GARCÍA MD 12/26/23 12:04 PM [facility] Infectious Diseases Please contact us via YellowKorner chat Images from the original note were not included. [facility] Progress Note 12/26/2023 Patient Name: Harris Castrejon : 1955 Hospital Day: 5 SUBJECTIVE Follow-up for abdominal pain. The patient seen and examined. No acute events over night. No fevers or chills. Tolerating diet. Past Medical History: Diagnosis Date Arrhythmia Hypertension Injury of back Disc L4 and L5 Obesity Respiratory distress 10/19/2023 Septic shock ([facility]) 12/22/2023 Systolic and diastolic CHF, acute ([facility] 09/03/2023 Visual impairment Past Surgical History: Procedure Laterality Date APPLICATION WOUND VAC N/A 11/07/2023 Performed by Mitra Crowell MD at [facility] Cardiac catheterization 02/16/2021 Performed by Kelli Su MD at [facility] CARDIAC CATH LABS Caval Tricuspid Isthmus RFA, Carto w/ICE N/A 03/21/2021 Performed by Lurdes Weinberg MD at [facility] (EP) COLONOSCOPY POLYPECTOMY N/A 10/23/2023 Performed by Soy Talamantes MD at [facility] Coronary angiogram and left ventricular gram/pressure N/A 02/16/2021 Performed by Kelli Su MD at [facility] CARDIAC CATH LABS Coronary fractional flow reserve N/A 02/16/2021 Performed by Kelli Su MD at [facility] CARDIAC CATH LABS CREATION OF END COLOSTOMY N/A 11/07/2023 Performed by Mitra Crowell MD at [facility] ESOPHAGOGASTRODUODENOSCOPY DIAGNOSTIC N/A 10/23/2023 Performed by Soy Talamantes MD at [facility] EXAM UNDER ANESTHESIA WITH BRECTAL BIOPSY N/A 11/28/2023 Performed by Mitra Crowell MD at [facility] EXAM UNDER ANESTHESIA/RECTAL MASS BIOPSY N/A 10/25/2023 Performed by Mitra Crowell MD at [facility] FLEXIBLE SIGMOIDOSCOPY N/A 10/25/2023 Performed by Mitra Crowell MD at [facility] FLEXIBLE SIGMOIDOSCOPY WITH BIOPSY N/A 11/28/2023 Performed by Mitra Crowell MD at [facility] INSCISIONAL DEBRIDEMENT SACRUM N/A 10/20/2023 Performed by Magdi Matthew MD at [facility] INSERT ARTERIAL LINE 11/05/2023 INSERT ARTERIAL LINE 11/07/2023 Intravascular pressure measurement first vessel each additional vessel (fractional flow reserve) N/A 02/16/2021 Performed by Kelli Su MD at [facility] CARDIAC CATH LABS INTUBATION 11/07/2023 LAPAROTOMY EXPLORATORY N/A 11/07/2023 Performed by Mitra Crowell MD at [facility] MYRINGOTOMY W/ TUBES RESECTION BOWEL SMALL N/A 11/07/2023 Performed by Mitra Crowell MD at [facility] TONSILLECTOMY OBJECTIVE Vital Signs: Temp: [36.5 C [...] Result Value Ref Range Blood component type [id number] Unit number [id number] Unit ABO O Unit RH POS Crossmatch Compatible Status of unit TRANSFUSED Expiration Date [id number] BB Type Barcode 5100 Hemoglobin and hematocrit, [...] Value Units Date/Time Resp Pathogens Panel/SARS CoV-2 [[id number]] Collected: 12/25/23 1158 Specimen: Nasopharynx Updated: 12/25/23 [...] SARS COV 2 Not Detected Urine culture [[id number]] (Abnormal) (Susceptibility) Collected: 12/22/23 1326 Specimen: Urine [...] Susceptible Wound culture superficial includes gram stain [[id number]] (Abnormal) (Susceptibility) Collected: 12/22/23 1231 Specimen: Wound [...] RESISTANCE TO CLINDAMYCIN DETECTED [2] CLIA ID [id number] Blood Culture [[id number]] Collected: 03/24/24 1218 Specimen: Blood Updated: 12/26/23 1303 Culture NO GROWTH 4 DAYS Blood Culture [[id number]] Collected: 12/22/231217 Specimen: Blood Updated: 12/26/23 1303 [...] Problems Diagnosis Date Noted Adenocarcinoma of rectum ([facility]) 12/24/2023 Septic shock ([facility]) 12/22/2023 Pressure injury of sacral region, stage 4 ([facility]) 10/21/2023 Resolved Problems No resolved problems to display. - Atrial fibrillation with RVR- rate is controlled now - Hx of atypical flutter s/p ablation 02/2022 - Elevated troponin: - Hx of non obstructive CAD on [facility] 2020: - Chronic CHF with improved EF (40-45%): - No chest pain. EKG shows diffuse ST segment depression ( old). [id number] score: 5 S/p intermittent doses of digoxin. [...] Resident, PGY-1 Colorectal Surgery 6a-6p pager # [phone] 6p-6a pager #[phone] Associated attestation - Mitra Crowell MD - [...] Note Team 1 Please contact us via YellowKorner chat. 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 Buttock wound is large deep to [...] Value Units Date/Time Resp Pathogens Panel/SARS CoV-2 [[id number]] Collected: 12/25/23 1158 Specimen: Nasopharynx Updated: 12/25/23 [...] SARS COV 2 Not Detected Urine culture [[id number]] (Abnormal) Collected: 12/22/23 1326 Specimen: Urine from [...] PROGRESS Wound culture superficial includes gram stain [[id number]] (Abnormal) (Susceptibility) Collected: 12/22/23 1231 Specimen: Wound [...] RESISTANCE TO CLINDAMYCIN DETECTED [2] CLIA ID [id number] Blood Culture [[id number]] Collected: 12/22/231217 Specimen: Blood Updated: 12/25/23 130 Culture NO GROWTH 3 DAYS Blood Culture [[id number]] Collected: 12/22/23 121 Specimen: Blood Updated: 12/25/23 [...] progress note was completed using a voice nurse informaticist system. Every effort was made to ensure accuracy; however, inadvertent computerized nurse informaticist errors may be present. Thank you for allowing us to participate in the care of this patient. - ROBERT GARCÍA MD 12/25/23 6:13 PM [facility] Infectious Diseases Please contact us via YellowKorner chat Images from the original note were not included. [facility] Hospitalists Progress Note 12/25/2023 Patient Name: [...] L5 Obesity Respiratory distress 10/19/2023 Septic shock ([facility]) 12/22/2023 Systolic and diastolic CHF, acute ([facility] 09/03/2023 Visual impairment Past Surgical History: Procedure Laterality Date APPLICATION WOUND VAC N/A 11/07/2023 Performed by Mitra Crowell MD at [facility] Cardiac catheterization 02/16/2021 Performed by Kelli Su MD at [facility] CARDIAC CATH LABS Caval Tricuspid Isthmus RFA, Carto w/ICE N/A 03/21/2021 Performed by Lurdes Weinberg MD at [facility] (EP) COLONOSCOPY POLYPECTOMY N/A 10/23/2023 Performed by Soy Talamantes MD at [facility] Coronary angiogram and left ventricular gram/pressure N/A 02/16/2021 Performed by Kelli Su MD at [facility] CARDIAC CATH LABS Coronary fractional flow reserve N/A 02/16/2021 Performed by Kelli Su MD at [facility] CARDIAC CATH LABS CREATION OF END COLOSTOMY N/A 11/07/2023 Performed by Mitra Crowell MD at [facility] ESOPHAGOGASTRODUODENOSCOPY DIAGNOSTIC N/A 10/23/2023 Performed by Soy Talamantes MD at [facility] EXAM UNDER ANESTHESIA WITH BRECTAL BIOPSY N/A 11/28/2023 Performed by Mitra Crowell MD at [facility] EXAM UNDER ANESTHESIA/RECTAL MASS BIOPSY N/A 10/25/2023 Performed by Mitra Crowell MD at [facility] FLEXIBLE SIGMOIDOSCOPY N/A 10/25/2023 Performed by Mitra Crowell MD at [facility] FLEXIBLE SIGMOIDOSCOPY WITH BIOPSY N/A 11/28/2023 Performed by Mitra Crowell MD at [facility] INSCISIONAL DEBRIDEMENT SACRUM N/A 10/20/2023 Performed by Magdi Matthew MD at [facility] INSERT ARTERIAL LINE 11/05/2023 INSERT ARTERIAL LINE 11/07/2023 Intravascular pressure measurement first vessel each additional vessel (fractional flow reserve) N/A 02/16/2021 Performed by Kelli Su MD at [facility] CARDIAC CATH LABS INTUBATION 11/07/2023 LAPAROTOMY EXPLORATORY N/A 11/07/2023 Performed by Mitra Crowell MD at [facility] MYRINGOTOMY W/ TUBES RESECTION BOWEL SMALL N/A 11/07/2023 Performed by Mitra Crowell MD at [facility] TONSILLECTOMY OBJECTIVE Vital Signs: Temp: [36.3 C [...] Value Units Date/Time Resp Pathogens Panel/SARS CoV-2 [[id number]] Collected: 12/25/23 1158 Specimen: Nasopharynx Updated: 12/25/23 [...] SARS COV 2 Not Detected Urine culture [[id number]] (Abnormal) Collected: 12/22/23 1326 Specimen: Urine from [...] PROGRESS Wound culture superficial includes gram stain [[id number]] (Abnormal) (Susceptibility) Collected: 12/22/23 1231 Specimen: Wound [...] RESISTANCE TO CLINDAMYCIN DETECTED [2] CLIA ID [id number] Blood Culture [[id number]] Collected: 12/22/23 1218 Specimen: Blood Updated: 12/25/23 1303 Culture NO GROWTH 3 DAYS Blood Culture [[id number]] Collected: 12/22/23 1218 Specimen: Blood Updated: 12/25/23 [...] Problems Diagnosis Date Noted Adenocarcinoma of rectum ([facility]) 12/24/2023 Septic shock ([facility]) 12/22/2023 Pressure injury of sacral region, stage 4 ([facility]) 10/21/2023 Resolved Problems No resolved problems to display. - Atrial fibrillation with RVR- - Hx of atypical flutter s/p ablation 02/2022 - Elevated troponin: - Hx of non obstructive CAD on [facility] 2020: - Chronic CHF with improved EF (40-45%): - No chest pain. EKG shows diffuse ST segment depression ( old). [id number] score: 5 Rate is controlled today. S/p [...] from the original note were not included. [facility] [address] [place] [address] PROGRESS NOTE Harris A Hessick Patient resting [...] IMPRESSION: Cardiomegaly and vascular congestion. Finalized by aRy Vo MD on 12/22/2023 1:52 PM X-ray [...] below the diaphragm and out of the suvon-km-ztlv. Stable position of the right PICC in [...] Chronic hypotension. -persistent atrial fibrillation with RVR: [id number] score at least 5. 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 -chronic [...] This note was completed using a voice nurse informaticist system. Every effort was made to ensure accuracy. However, inadvertent computerized nurse informaticist errors may be present. Images from the [...] Lizz Trejo MD -- Infectious Diseases Eduardo oWlff MD Cardiology Cardiology MD Wendy Salazra Radiation Oncology Radiation Oncology Surgery B (Tth [...] progress note was completed using a voice nurse informaticist system. Every effort was made to ensure accuracy. However, inadvertent computerized nurse informaticist errors may be present. Associated attestation - [...] Justin Condon MD Pulmonary and critical care [facility] IP Day: 3 Subjective: Patient being [...] Resident, PGY-1 Colorectal Surgery 6a-6p pager # [phone] 6p-6a pager #[phone] Associated attestation - Mitra Crowell MD - [...] Resident, PGY-1 Colorectal Surgery 6a-6p pager # [phone] 6p-6a pager #[phone] Associated attestation - Mitra Crowell MD - [...] she has not a candidate for surgery [facility] Department of Pharmacy Pharmacist to Physician Communication The dose of vancomycin for bacteremia has restarted per consult at prior dose of 1250 mg every 24 hours per the [facility] approved renal dosing guidelines, based on an estimated creatinine clearance is 40.8 mL/min (A) (by C-G formula based on SCr of 1.17 mg/dL (H)). Plan to obtain trough prior to the fourth dose of this regimen. Thank you, Vickie Milan [facility], PharmD Ext [phone] Images from the original note were not included. [facility] PROGRESS NOTE Patient - Harris Castrejon Age - 68 y.[facility]. [facility] 1955 [id number] Date of Admission - 12/22/2023 12:03 PM [...] AM - PGY3 Internal Medicine Resident. - [facility]. This progress note was completed using a voice nurse informaticist system. Every effort was made to ensure accuracy. However, inadvertent computerized nurse informaticist errors may be present. Associated attestation - [...] Justin Condon MD Pulmonary and critical care [facility] Images from the original note were [...] Procedure Component Value Units Date/Time Urine culture [[id number]] (Abnormal) Collected: 12/22/23 1326 Specimen: Urine from [...] results. Wound culture superficial includes gram stain [[id number]] (Abnormal) (Susceptibility) Collected: 12/22/23 1231 Specimen: Wound [...] testing for Cefazolin is required. Blood Culture [[id number]] Collected: 12/22/23 121 Specimen: Blood Updated: 12/23/23 1303 Culture NO GROWTH 1 DAY Blood Culture [[id number]] Collected: 12/22/23 1218 Specimen: Blood Updated: 12/23/23 [...] to sepsis, afib rvr, downtrending. Severely elevated L-xdmsa-fjvwdl secondary to infection, malignancy. CT chest with [...] from the original note were not included. [facility] Count includes the [facility] [place] [address] PROGRESS NOTE Harris Castrejon Patient resting in [...] below the diaphragm and out of the qjnsi-dr-jomk. Stable position of the right PICC in [...] Chronic hypotension. -persistent atrial fibrillation with RVR: [id number] score at least 5. 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 -chronic [...] This note was completed using a voice nurse informaticist system. Every effort was made to ensure accuracy. However, inadvertent computerized nurse informaticist errors may be present. Images from the original note were not included. Rapid Response Event Note Patient: Harris Castrejon : 1955 Age: 68 y.o. Length of Stay: 1 days Admission Diagnosis: Atrial fibrillation with RVR ([facility]) [I48.91] Abnormal heart rate [R00.9] Chronic wound infection of abdomen, initial encounter [S31.109A, L08.9] Septic shock ([facility]) [A41.9, R65.21] Pneumonia of right upper lobe due to infectious organism [J18.9] Elevated troponin [R79.89] Tachycardia [R00.0] SITUATION Time of Call: 1511 Arrival Time: 1514 Rapid Response called due to Pt having a-fib with rvr. BACKGROUND Past Medical History: Diagnosis Date Arrhythmia Hypertension Injury of back Disc L4 and L5 Obesity Respiratory distress 10/19/2023 Septic shock ([facility]) 12/22/2023 Systolic and diastolic CHF, acute ([facility]) 09/03/2023 Visual impairment ASSESSMENT Upon my arrival, Harris Castrejon was lying in bed, deneis chest pain but c/o shortness of breath. O2 sats high 90's, slightly tachpneic. Primary RN had contacted cards after she spoke with RN engineering writer and an order for 5mg IV metoprolol was ordered. BP support this intervention. Rn engineering writer remained at bedside while medication was given. Pts HR was down into the 90's-110's still in a-fib. Primary RN instructed to call rapid with any other questions or concerns. Pt will be placed on rapid's watchers list. RECOMMENDATIONS / PLAN / OUTCOME Monitor HR Monitor vital signs Monitor work of breathing End of Call: [phone] Thank you, Malorie Lundberg RN Rapid Response: [facility] Images from the original note were not [...] Procedure Component Value Units Date/Time Urine culture [[id number]] Collected: 12/22/23 1329 Specimen: Urine Updated: 12/22/23 1523 Wound culture superficial includes gram stain [[id number]] (Abnormal) Collected: 12/22/23 1231 Specimen: Wound Swab Updated: 12/23/23 0928 Gram Stain Result >25 WHITE BLOOD CELLS/LPF 10 to 24 SQUAMOUS EPITHELIAL CELLS/LPF RARE GRAM POSITIVE COCCI IN CLUSTERS INTRACELLULAR EXTRACELLULAR RARE PLEOMORPHIC GRAM POSITIVE RODS Culture CULTURE IN PROGRESS Blood Culture [[id number]] Collected: 12/22/23 1218 Specimen: Blood Updated: 12/23/23 0103 Culture NO GROWTH <24 HRS Blood Culture [[id number]] Collected: 12/22/23 121 Specimen: Blood Updated: 12/23/23 [...] to sepsis, afib rvr, downtrending. Severely elevated M-wvbcp-tldvox secondary to infection, malignancy. CT chest with [...] from the original note were not included. [facility] [address] [place] [address] PROGRESS NOTE Harris Akua Rutherfordick Patient complaining [...] below the diaphragm and out of the ntise-nq-smae. Stable position of the right PICC in [...] Chronic hypotension. -persistent atrial fibrillation with RVR: [id number]-Hjzt score at least 5. 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 -chronic [...] This note was completed using a voice nurse informaticist system. Every effort was made to ensure accuracy. However, inadvertent computerized nurse informaticist errors may be present. Images from the [...] Resident, PGY-1 Colorectal Surgery 6a-6p pager # [phone] 6p-6a pager #[phone] Associated attestation - Mitra Crowell MD - [...] Procedure Component Value Units Date/Time Urine culture [[id number]] Collected: 12/22/23 1329 Specimen: Urine Updated: 12/22/23 1523 Blood Culture [[id number]] Collected: 12/22/23 123 Specimen: Blood, Peripheral Draw Updated: 12/22/23 1303 Blood Culture [[id number]] Collected: 12/22/23 1239 Specimen: Blood, Peripheral Draw Updated: 12/22/23 1303 Wound culture superficial includes gram stain [[id number]] Collected: 12/22/23 1239 Updated: 12/22/23 1419 Concurrent [...] Bronson Espinoza PharmD documented in this encounter [facility] 12-27-2023 Hospital Discharge instructions Brandon Carrillo MD - 12/27/2023 11:48 AM EDT - please apply wound vac to the sacral wound and abdominal wound. documented in this encounter [facility] 12-27-2023 Nurse Note Patient's called RN [...] voicemail. Will attempt to call again later Fire Alarm Technician attempted to reach patients , Liborio, to have him fill out MRI Checklist via telephone. Liborio did not pickling grader and call was sent to voicemail. Pt [...] heels of off-loaded. PCS Malorie Lopez And clinic charge nurse Shante notified. documented in this encounter [facility] [employer] 12-24-2023 Consult note Associated Order (s): IP CONSULT TO INFECTIOUS DISEASES Images from the original note were not included. Infectious Diseases Academic Team 1 - Initial Consult Note - Please contact us via [employer] chat. After hours, call [phone] Patient name: Harris Castrejon Patient Today's Date [...] and early November. She presented initially to [place] [facility] with hypoglycemia and pain from wounds on her buttocks she would acute renal failure sepsis and she had are AFib with RVR that time too. She was intubated and transferred to [facility] she spent some time in the [...] L5 Obesity Respiratory distress 10/19/2023 Septic shock ([facility] 12/22/2023 Systolic and diastolic CHF, acute ([facility]) 09/03/2023 Visual impairment Past Surgical History: Past Surgical History: Procedure Laterality Date APPLICATION WOUND VAC N/A 11/07/2023 Performed by Mitra Crowell MD at [facility] Cardiac catheterization 02/16/2021 Performed by Kelli Su MD at [facility] CARDIAC CATH LABS Caval Tricuspid Isthmus RFA, Carto w/ICE N/A 03/21/2021 Performed by Lurdes Weinberg MD at [facility] HR (EP) COLONOSCOPY POLYPECTOMY N/A 10/23/2023 Performed by Soy Talamantes MD at [facility] Coronary angiogram and left ventricular gram/pressure N/A 02/16/2021 Performed by Kelli Su MD at [facility] CARDIAC CATH LABS Coronary fractional flow reserve N/A 02/16/2021 Performed by Kelli Su MD at [facility] CARDIAC CATH LABS CREATION OF END COLOSTOMY N/A 11/07/2023 Performed by Mitra Crowell MD at [facility] ESOPHAGOGASTRODUODENOSCOPY DIAGNOSTIC N/A 10/23/2023 Performed by Soy Talamantes MD at [facility] EXAM UNDER ANESTHESIA WITH BRECTAL BIOPSY N/A 11/28/2023 Performed by Mitra Crowell MD at [facility] EXAM UNDER ANESTHESIA/RECTAL MASS BIOPSY N/A 10/25/2023 Performed by Mitra Crowell MD at [facility] FLEXIBLE SIGMOIDOSCOPY N/A 10/25/2023 Performed by Mitra Crowell MD at [facility] FLEXIBLE SIGMOIDOSCOPY WITH BIOPSY N/A 11/28/2023 Performed by Mitra Crowell MD at [facility] INSCISIONAL DEBRIDEMENT SACRUM N/A 10/20/2023 Performed by Magdi Matthew MD at [facility] INSERT ARTERIAL LINE 11/05/2023 INSERT ARTERIAL LINE 11/07/2023 Intravascular pressure measurement first vessel each additional vessel (fractional flow reserve) N/A 02/16/2021 Performed by Kelli Su MD at [facility] CARDIAC CATH LABS INTUBATION 11/07/2023 LAPAROTOMY EXPLORATORY N/A 11/07/2023 Performed by Mitra Crowell MD at [facility] MYRINGOTOMY W/ TUBES RESECTION BOWEL SMALL N/A 11/07/2023 Performed by Mitra Crowell MD at [facility] TONSILLECTOMY Medications: aspirin, 81 mg, oral, Daily [...] Procedure Component Value Units Date/Time Urine culture [[id number]] (Abnormal) Collected: 12/22/23 1326 Specimen: Urine from [...] PROGRESS Wound culture superficial includes gram stain [[id number]] (Abnormal) (Susceptibility) Collected: 12/22/23 1231 Specimen: Wound [...] testing for Cefazolin is required. Blood Culture [[id number]] Collected: 12/22/23 1218 Specimen: Blood Updated: 12/24/23 1303 Culture NO GROWTH 2 DAYS Blood Culture [[id number]] Collected: 12/22/23 1218 Specimen: Blood Updated: 12/24/23 1303 Culture NO GROWTH 2 DAYS Thank you for allowing us to participate in the care of this patient. - ROBERT GARCÍA MD 12/24/23 6:40 PM [facility] Infectious Diseases Please contact us via [employer] chat Associated Order(s): IP CONSULT TO RADIATION ONCOLOGY Images from the original note were not included. [facility] Radiation Oncology Reginald Villalta M.D. Reinaldo Olivarez M.D. Favio Dupree M.D. Robert Rosas M.D. Glenny Pierre, [facility] Shannon Adame M.D. Silvano Glass M.D. Hannah Monaco M.D. Randi Barker, [facility] RADIATION ONCOLOGY INPATIENT CONSULT Date of Service: 12/24/23 Location: [address] [facility] [id number] Patient ID: Name: Harris Castrejon : 1955 Harris Castrejon is being seen today for an oncologic opinion at the request of Dr. Jose Ferguson. Chief Complaint Chief Complaint Patient presents with Atrial Fibrillation Cancer Staging Patient Active Problem List Diagnosis Cerumen debris on tympanic membrane of both ears Typical atrial flutter (CMS-HCC) Coronary artery disease involving [place] coronary artery of [place] heart without angina pectoris Tachycardia induced cardiomyopathy [...] 10/19/2023 to 12/04/2023 where she presented to [place] ED with generalized weakness. She was found [...] intubated for airway protection and transferred to [facility] ICU for the management care. From [...] L5 Obesity Respiratory distress 10/19/2023 Septic shock ([facility] 12/22/2023 Systolic and diastolic CHF, acute ([facility]) 09/03/2023 Visual impairment Past Surgical History: Procedure Laterality Date APPLICATION WOUND VAC N/A 11/07/2023 Performed by Mitra Crowell MD at [facility] Cardiac catheterization 02/16/2021 Performed by Kelli Su MD at [facility] CARDIAC CATH LABS Caval Tricuspid Isthmus RFA, Carto w/ICE N/A 03/21/2021 Performed by Lurdes Weniberg MD at [facility] () COLONOSCOPY POLYPECTOMY N/A 10/23/2023 Performed by Soy Talamantes MD at [facility] Coronary angiogram and left ventricular gram/pressure N/A 02/16/2021 Performed by Kelli Su MD at [facility] CARDIAC CATH LABS Coronary fractional flow reserve N/A 02/16/2021 Performed by Kelli Su MD at [facility] CARDIAC CATH LABS CREATION OF END COLOSTOMY N/A 11/07/2023 Performed by Mitra Crowell MD at [facility] ESOPHAGOGASTRODUODENOSCOPY DIAGNOSTIC N/A 10/23/2023 Performed by Soy Talamantes MD at [facility] EXAM UNDER ANESTHESIA WITH BRECTAL BIOPSY N/A 11/28/2023 Performed by Mitra Crowell MD at [facility] EXAM UNDER ANESTHESIA/RECTAL MASS BIOPSY N/A 10/25/2023 Performed by Mitra Crowell MD at [facility] FLEXIBLE SIGMOIDOSCOPY N/A 10/25/2023 Performed by Mitra Crowell MD at [facility] FLEXIBLE SIGMOIDOSCOPY WITH BIOPSY N/A 11/28/2023 Performed by Mitra Crowell MD at [facility] INSCISIONAL DEBRIDEMENT SACRUM N/A 10/20/2023 Performed by Magdi Matthew MD at [facility] INSERT ARTERIAL LINE 11/05/2023 INSERT ARTERIAL LINE 11/07/2023 Intravascular pressure measurement first vessel each additional vessel (fractional flow reserve) N/A 02/16/2021 Performed by Kelli Su MD at [facility] CARDIAC CATH LABS INTUBATION 11/07/2023 LAPAROTOMY EXPLORATORY N/A 11/07/2023 Performed by Mitra Crowell MD at [facility] MYRINGOTOMY W/ TUBES RESECTION BOWEL SMALL N/A 11/07/2023 Performed by Mitra Crowell MD at [facility] TONSILLECTOMY Scheduled Meds: aspirin, 81 mg, oral, [...] perform ROS: Mental status change Physical Exam Speeder Hand:declined Vital Signs: BP 135/59 Pulse 116 Temp [...] 10/19/2023 to 12/04/2023 where she presented to [place] ED with generalized weakness. She had a [...] 10 minutes preparing this dictation. NICOLAS Miller [facility] Radiation Oncology December 24, 2023 CC: Patient Care Team: Carol Akins PA-C as PCP - General (Physician Oil Changer) NICOLAS Miller 12/24/23 5649 Images from the original note were not included. [facility] Gurpreet Saste, M.D. Racquel Langston M.D. Sonya Ruelas M.D. Sunni Stack M.D. Tara Funes, [facility] Keron Stahl, [facility] Tiffanie Segal, [facility] Rufina Nile, [facility] JUAN Brown M.D. Tc Ridley M.D. Reinaldo Felder M.D. Alfred Adams M.D. Carole Gaviria, [facility] Jenny Unique, [facility] Tian Dhaliwal, [facility] Yeny Mitchell, [facility] Mendy Nielsen, [facility] CONSULT NOTE 12/24/23 [...] L5 Obesity Respiratory distress 10/19/2023 Septic shock ([facility] 12/22/2023 Systolic and diastolic CHF, acute ([facility]) 09/03/2023 Visual impairment Past Surgical History: Procedure Laterality Date APPLICATION WOUND VAC N/A 11/07/2023 Performed by Mitra Crowell MD at [facility] Cardiac catheterization 02/16/2021 Performed by Kelli Su MD at [facility] CARDIAC CATH LABS Caval Tricuspid Isthmus RFA, Carto w/ICE N/A 03/21/2021 Performed by Lurdes Weinberg MD at [facility] () COLONOSCOPY POLYPECTOMY N/A 10/23/2023 Performed by Soy Talamantes MD at [facility] Coronary angiogram and left ventricular gram/pressure N/A 02/16/2021 Performed by Kelli Su MD at [facility] CARDIAC CATH LABS Coronary fractional flow reserve N/A 02/16/2021 Performed by Kelli Su MD at [facility] CARDIAC CATH LABS CREATION OF END COLOSTOMY N/A 11/07/2023 Performed by Mitra Crowell MD at [facility] ESOPHAGOGASTRODUODENOSCOPY DIAGNOSTIC N/A 10/23/2023 Performed by Soy Talamantes MD at [facility] EXAM UNDER ANESTHESIA WITH BRECTAL BIOPSY N/A 11/28/2023 Performed by Mitra Crowell MD at [facility] EXAM UNDER ANESTHESIA/RECTAL MASS BIOPSY N/A 10/25/2023 Performed by Mitra Crowell MD at [facility] FLEXIBLE SIGMOIDOSCOPY N/A 10/25/2023 Performed by Mitra Crowell MD at [facility] FLEXIBLE SIGMOIDOSCOPY WITH BIOPSY N/A 11/28/2023 Performed by Mitra Crowell MD at [facility] INSCISIONAL DEBRIDEMENT SACRUM N/A 10/20/2023 Performed by Magdi Matthew MD at [facility] INSERT ARTERIAL LINE 11/05/2023 INSERT ARTERIAL LINE 11/07/2023 Intravascular pressure measurement first vessel each additional vessel (fractional flow reserve) N/A 02/16/2021 Performed by Kelli Su MD at [facility] CARDIAC CATH LABS INTUBATION 11/07/2023 LAPAROTOMY EXPLORATORY N/A 11/07/2023 Performed by Mitra Crowell MD at [facility] MYRINGOTOMY W/ TUBES RESECTION BOWEL SMALL N/A 11/07/2023 Performed by Mitra Crowell MD at [facility] TONSILLECTOMY Family History Problem Relation Age of [...] atrial flutter (CMS-HCC) Coronary artery disease involving [place] coronary artery of [place] heart without angina pectoris Tachycardia induced cardiomyopathy [...] for the consultation. Mendy Nielsen APRN CNP [facility] [address] [place] [address] December 24, 2023, 9:29 AM Please note that portions of this note were generated using voice recognition [employer] dictation software. Although every effort was made to ensure the accuracy of this automated nurse informaticist, some errors in nurse informaticist may have occurred. NICOLAS Yao 12/24/23 4450 I have personally performed a face to [...] L5 Obesity Respiratory distress 10/19/2023 Septic shock ([facility] 12/22/2023 Systolic and diastolic CHF, acute ([facility]) 09/03/2023 Visual impairment PSH: Past Surgical History: Procedure Laterality Date APPLICATION WOUND VAC N/A 11/07/2023 Performed by Mitra Crowell MD at [facility] Cardiac catheterization 02/16/2021 Performed by Kelli Su MD at [facility] CARDIAC CATH LABS Caval Tricuspid Isthmus RFA, Carto w/ICE N/A 03/21/2021 Performed by Lurdes Weinberg MD at [facility] () COLONOSCOPY POLYPECTOMY N/A 10/23/2023 Performed by Soy Talamantes MD at [facility] Coronary angiogram and left ventricular gram/pressure N/A 02/16/2021 Performed by Kelli Su MD at [facility] CARDIAC CATH LABS Coronary fractional flow reserve N/A 02/16/2021 Performed by Kelli Su MD at [facility] CARDIAC CATH LABS CREATION OF END COLOSTOMY N/A 11/07/2023 Performed by Mitra Crowell MD at [facility] ESOPHAGOGASTRODUODENOSCOPY DIAGNOSTIC N/A 10/23/2023 Performed by Soy Talamantes MD at [facility] EXAM UNDER ANESTHESIA WITH BRECTAL BIOPSY N/A 11/28/2023 Performed by Mitra Crowell MD at [facility] EXAM UNDER ANESTHESIA/RECTAL MASS BIOPSY N/A 10/25/2023 Performed by Mitra Crowell MD at [facility] FLEXIBLE SIGMOIDOSCOPY N/A 10/25/2023 Performed by Mitra Crowell MD at [facility] FLEXIBLE SIGMOIDOSCOPY WITH BIOPSY N/A 11/28/2023 Performed by Mitra Crowell MD at [facility] INSCISIONAL DEBRIDEMENT SACRUM N/A 10/20/2023 Performed by Magdi Matthew MD at [facility] INSERT ARTERIAL LINE 11/05/2023 INSERT ARTERIAL LINE 11/07/2023 Intravascular pressure measurement first vessel each additional vessel (fractional flow reserve) N/A 02/16/2021 Performed by Kelli Su MD at [facility] CARDIAC CATH LABS INTUBATION 11/07/2023 LAPAROTOMY EXPLORATORY N/A 11/07/2023 Performed by Mitra Crowell MD at [facility] MYRINGOTOMY W/ TUBES RESECTION BOWEL SMALL N/A 11/07/2023 Performed by Mitra Crowell MD at [facility] TONSILLECTOMY Allergies: Allergies Allergen Reactions Oats [...] mouth in the morning. Past Week fat melr-rbc-xnz-oliv-fish oil, SMOFLIPID, 20 % emulsion infusion Infuse [...] Procedure Component Value Units Date/Time Urine culture [[id number]] (Abnormal) Collected: 12/22/23 1326 Specimen: Urine from [...] results. Wound culture superficial includes gram stain [[id number]] (Abnormal) Collected: 12/22/23 1231 Specimen: Wound Swab Updated: 12/23/23 1124 Gram Stain Result >25 WHITE BLOOD CELLS/LPF 10 to 24 SQUAMOUS EPITHELIAL CELLS/LPF RARE GRAM POSITIVE COCCI IN CLUSTERS INTRACELLULAR EXTRACELLULAR RARE PLEOMORPHIC GRAM POSITIVE RODS Culture FEW ESCHERICHIA COLI CULTURE IN PROGRESS Blood Culture [[id number]] Collected: 12/22/23 1218 Specimen: Blood Updated: 12/23/23 1303 Culture NO GROWTH 1 DAY Blood Culture [[id number]] Collected: 12/22/23 1218 Specimen: Blood Updated: 12/23/23 [...] Wound and Vascular Service Line Sat-Sat 8a-3p [phone] - pager M--3p Secure Chat preferred & [...] EMS was called to take patient to [facility] ER. Pulmonology was consulted for evaluation of [...] L5 Obesity Respiratory distress 10/19/2023 Septic shock ([facility]) 12/22/2023 Systolic and diastolic CHF, acute ([facility]) 09/03/2023 Visual impairment PSH: Past Surgical History: Procedure Laterality Date APPLICATION WOUND VAC N/A 11/07/2023 Performed by Mitra Crowell MD at [facility] Cardiac catheterization 02/16/2021 Performed by Kelli Su MD at [facility] CARDIAC CATH LABS Caval Tricuspid Isthmus RFA, Carto w/ICE N/A 03/21/2021 Performed by Lurdes Weinberg MD at [facility] HR (EP) COLONOSCOPY POLYPECTOMY N/A 10/23/2023 Performed by Soy Talamantes MD at [facility] Coronary angiogram and left ventricular gram/pressure N/A 02/16/2021 Performed by Kelli Su MD at [facility] CARDIAC CATH LABS Coronary fractional flow reserve N/A 02/16/2021 Performed by Kelli Su MD at [facility] CARDIAC CATH LABS CREATION OF END COLOSTOMY N/A 11/07/2023 Performed by Mitra Crowell MD at [facility] ESOPHAGOGASTRODUODENOSCOPY DIAGNOSTIC N/A 10/23/2023 Performed by Soy Talamantes MD at [facility] EXAM UNDER ANESTHESIA WITH BRECTAL BIOPSY N/A 11/28/2023 Performed by Mitra Crowell MD at [facility] EXAM UNDER ANESTHESIA/RECTAL MASS BIOPSY N/A 10/25/2023 Performed by Mitra Crowell MD at [facility] FLEXIBLE SIGMOIDOSCOPY N/A 10/25/2023 Performed by Mitra Crowell MD at [facility] FLEXIBLE SIGMOIDOSCOPY WITH BIOPSY N/A 11/28/2023 Performed by Mitra Crowell MD at [facility] INSCISIONAL DEBRIDEMENT SACRUM N/A 10/20/2023 Performed by Magdi Matthew MD at [facility] INSERT ARTERIAL LINE 11/05/2023 INSERT ARTERIAL LINE 11/07/2023 Intravascular pressure measurement first vessel each additional vessel (fractional flow reserve) N/A 02/16/2021 Performed by Kelli Su MD at [facility] CARDIAC CATH LABS INTUBATION 11/07/2023 LAPAROTOMY EXPLORATORY N/A 11/07/2023 Performed by Mitra Crowell MD at [facility] MYRINGOTOMY W/ TUBES RESECTION BOWEL SMALL N/A 11/07/2023 Performed by Mitra Crowell MD at [facility] TONSILLECTOMY Allergies: Allergies Allergen Reactions Oats Home [...] PM - PGY3 Internal Medicine Resident. - [facility]. This consult note was completed using a voice nurse informaticist system. Every effort was made to ensure accuracy. However, inadvertent computerized nurse informaticist errors may be present. Associated attestation - [...] Justin Condon MD Pulmonary and critical care [facility] Associated Order(s): IP CONSULT TO CARDIOLOGY Images from the original note were not included. [facility] [address] [place] [address] HISTORY & PHYSICAL / CONSULT NOTE Harris [...] 11/07/2023 Performed by Mitra Crowell MD at [facility] Cardiac catheterization 02/16/2021 Performed by Kelil Su MD at [facility] CARDIAC CATH LABS Caval Tricuspid Isthmus RFA, Carto w/ICE N/A 03/21/2021 Performed by Lurdes Weinberg MD at [facility] (EP) COLONOSCOPY POLYPECTOMY N/A 10/23/2023 Performed by Soy Talamantes MD at [facility] Coronary angiogram and left ventricular gram/pressure N/A 02/16/2021 Performed by Kelli Su MD at [facility] CARDIAC CATH LABS Coronary fractional flow reserve N/A 02/16/2021 Performed by Kelli Su MD at [facility] CARDIAC CATH LABS CREATION OF END COLOSTOMY N/A 11/07/2023 Performed by Mitra Crowell MD at [facility] ESOPHAGOGASTRODUODENOSCOPY DIAGNOSTIC N/A 10/23/2023 Performed by Soy Talamantes MD at [facility] EXAM UNDER ANESTHESIA WITH BRECTAL BIOPSY N/A 11/28/2023 Performed by Mitra Crowell MD at [facility] EXAM UNDER ANESTHESIA/RECTAL MASS BIOPSY N/A 10/25/2023 Performed by Mitra Crowell MD at [facility] FLEXIBLE SIGMOIDOSCOPY N/A 10/25/2023 Performed by Mitra Crowell MD at [facility] FLEXIBLE SIGMOIDOSCOPY WITH BIOPSY N/A 11/28/2023 Performed by Mitra Crowell MD at [facility] INSCISIONAL DEBRIDEMENT SACRUM N/A 10/20/2023 Performed by Magdi Matthew MD at [facility] INSERT ARTERIAL LINE 11/05/2023 INSERT ARTERIAL LINE 11/07/2023 Intravascular pressure measurement first vessel each additional vessel (fractional flow reserve) N/A 02/16/2021 Performed by Kelli Su MD at [facility] CARDIAC CATH LABS INTUBATION 11/07/2023 LAPAROTOMY EXPLORATORY N/A 11/07/2023 Performed by Mitra Crowell MD at [facility] MYRINGOTOMY W/ TUBES RESECTION BOWEL SMALL N/A 11/07/2023 Performed by Mitra Crowell MD at [facility] TONSILLECTOMY Allergies: Allergies Allergen Reactions [facility] Meds: Current Facility-Administered Medications Medication Dose Route [...] 80 mL intravenous Once in imaging Salbador Van Buren, DO Home Meds: Prior to Admission medications [...] the morning. 12/05/23 Yes NICOLAS Chi fat wnwd-dtv-zvs-oliv-fish oil, SMOFLIPID, 20 % emulsion infusion Infuse [...] be tachy mediated ASCVD moderate disease per [facility] 521 Chronic hypotension on midodrine with [...] This note was completed using a voice nurse informaticist system. Every effort was made to ensure accuracy. However, inadvertent computerized nurse informaticist errors may be present. NICOLAS Lua 12/22/231731 [...] very complicated stay documented in this encounter [facility] 12-22-2023 History and physical note Images from [...] 11/07/2023 Performed by Mitra Crowell MD at [facility] Cardiac catheterization 02/16/2021 Performed by Kelli Su MD at [facility] CARDIAC CATH LABS Caval Tricuspid Isthmus RFA, Carto w/ICE N/A 03/21/2021 Performed by Lurdes Weinberg MD at [facility] HR (EP) COLONOSCOPY POLYPECTOMY N/A 10/23/2023 Performed by Soy Talamantes MD at [facility] Coronary angiogram and left ventricular gram/pressure N/A 02/16/2021 Performed by Kelli Su MD at [facility] CARDIAC CATH LABS Coronary fractional flow reserve N/A 02/16/2021 Performed by Kelli Su MD at [facility] CARDIAC CATH LABS CREATION OF END COLOSTOMY N/A 11/07/2023 Performed by Mitra Crowell MD at [facility] ESOPHAGOGASTRODUODENOSCOPY DIAGNOSTIC N/A 10/23/2023 Performed by Soy Talamantes MD at [facility] EXAM UNDER ANESTHESIA WITH BRECTAL BIOPSY N/A 11/28/2023 Performed by Mitra Crowell MD at [facility] EXAM UNDER ANESTHESIA/RECTAL MASS BIOPSY N/A 10/25/2023 Performed by Mitra Crowell MD at [facility] FLEXIBLE SIGMOIDOSCOPY N/A 10/25/2023 Performed by Mitra Crowell MD at [facility] FLEXIBLE SIGMOIDOSCOPY WITH BIOPSY N/A 11/28/2023 Performed by Mitra Crowell MD at [facility] INSCISIONAL DEBRIDEMENT SACRUM N/A 10/20/2023 Performed by Magdi Matthew MD at [facility] INSERT ARTERIAL LINE 11/05/2023 INSERT ARTERIAL LINE 11/07/2023 Intravascular pressure measurement first vessel each additional vessel (fractional flow reserve) N/A 02/16/2021 Performed by Kelli Su MD at [facility] CARDIAC CATH LABS INTUBATION 11/07/2023 LAPAROTOMY EXPLORATORY N/A 11/07/2023 Performed by Mitra Crowell MD at [facility] MYRINGOTOMY W/ TUBES RESECTION BOWEL SMALL N/A 11/07/2023 Performed by Mitra Crowell MD at [facility] TONSILLECTOMY Home Medications: Prior to Admission [...] the morning. 12/05/23 Yes NICOLAS Chi fat lryo-lot-ylu-oliv-fish oil, SMOFLIPID, 20 % emulsion infusion Infuse [...] Procedure Component Value Units Date/Time Urine culture [[id number]] Collected: 12/22/23 1329 Specimen: Urine Updated: 12/22/23 1523 Blood Culture [[id number]] Collected: 12/22/23 1239 Specimen: Blood, Peripheral Draw Updated: 12/22/23 1303 Blood Culture [[id number]] Collected: 12/22/23 1239 Specimen: Blood, Peripheral Draw Updated: 12/22/23 1303 Wound culture superficial includes gram stain [[id number]] Collected: 12/22/23 1239 Updated: 12/22/[address] [...] Jamie Lester DO on 12/22/2023 12:53 PM ASSESSMENT/PLAN: Sepsis, [...] made to ensure accuracy; however, inadvertent computerized nurse informaticist errors may be present. Lexx Medina MD [...] troponin, cardiology following. documented in this encounter [facility] 12-22-2023 Emergency department Note Bed: 19 [...] at this time; documented in this encounter [facility] 12-18-2023 Miscellaneous Notes Contacted Harris to make 2-4 week F/U. 2nd attempt. documented in this encounter [facility] 12-18-2023 Telephone encounter Note Contacted Harris to make 2-4 week F/U. 2nd attempt. [facility] 12-10-2023 Miscellaneous Notes Images from the original note were not included. Cardiac clearance request received for EGD under MAC with Dr. Talamantes at [facility] pending clearance. Patient last seen 08/21/22 by SER. Needs appt for clearance. Message sent to scheduling. Was last supposed to see MAS but cancelled, needs to see general cardiology documented in this encounter [facility] 12-10-2023 Telephone encounter Note Images from the original note were not included. Cardiac clearance request received for EGD under MAC with Dr. Talamantes at [facility] pending clearance. Patient last seen 08/21/22 by SER. Needs appt for clearance. Message sent to scheduling. Was last supposed to see MAS but cancelled, needs to see general cardiology [facility] 12-09-2023 Miscellaneous Notes CRS Pathology results noted. Needs MRI. I called the patient's home phone number and left a VM to give us a call so we can have her come to the office to review and discuss next steps. I am unsure if she has been discharged from [facility] 12/09/2023 1549 attempted to call but VM box has not been set up [facility]23 Telephone encounter Note CRS Pathology results noted. Needs MRI. I called the patient's home phone number and left a VM to give us a call so we can have her come to the office to review and discuss next steps. I am unsure if she has been discharged from [facility] 12/09/2023 1549 attempted to call but VM box has not been set up [facility] Work Phone: 11-27-2023 Miscellaneous Notes LEFT A VM CANCEL[facility] WITH [facility] BARNES PATIENT IS CURRENTLY INPATIENT PRESCHEDULED TO MAY [facility]23 Telephone encounter Note LEFT A VM [facility] [address] BARNES PATIENT IS CURRENTLY INPATIENT PRESCHEDULED TO MAY [facility] 11-25-2023 Miscellaneous Notes Message from the 11/22/23 discharge list per TLM. He signed off patient care from [facility] Dx persistent atrial fibrillation. Rate better controlled. 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 GI bleeding with history of thrombocytopenia Patient to f/u in 1 to 2 weeks post d/c bvb Pt still currently admitted to [facility]. JLW Currently admitted Pt is still currently admitted documented in this encounter [facility] 11-25-2023 Telephone encounter Note Message from the 11/22/23 discharge list per TLM. He signed off patient care from [facility] Dx persistent atrial fibrillation. Rate better controlled. 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 GI bleeding with history of thrombocytopenia Patient to f/u in 1 to 2 weeks post d/c bvb [facility] 11-25-2023 Telephone encounter Note Pt still currently admitted to [facility]. [facility] 11-25-2023 Telephone encounter Note Currently admitted [facility] 11-25-2023 Telephone encounter Note Pt is still currently admitted [facility] 11-13-2023 Miscellaneous Notes Fire Alarm Technician contacted Harris to make hospital follow up. Per Dr. Rivera Patient can follow up in our clinic in 2-4 weeks after discharge. documented in this encounter [facility] 11-13-2023 Telephone encounter Note Fire Alarm Technician contacted Harris to make hospital follow up. Per Dr. Rivera Patient can follow up in our clinic in 2-4 weeks after discharge. [facility] 11-06-2023 Miscellaneous Notes Harris contacted to make appointment per Dr. Rivera Patient can follow up in our clinic in 2-4 weeks after discharge. Seen 11/04/23 documented in this encounter [facility] 11-06-2023 Telephone encounter Note Harris contacted to make appointment per Dr. Rivera Patient can follow up in our clinic in 2-4 weeks after discharge. Seen 11/04/23 [facility] 11-03-2023 Miscellaneous Notes Per MH recs, [...] at hospital Patient is currently inpatient at [facility]. Per notes in chart patient is septic. She will require an office visit with cardiology to obtain clearance to proceed with scheduling the EGD. Thank you documented in this encounter [facility] 11-03-2023 Telephone encounter Note Per recs, patient should be scheduled for outpatient EGD in 4 weeks to assess healing of esophagitis noted on EGD 10/23 with KB [facility] Work Phone: 11-03-2023 Telephone encounter Note Current inpatient [facility] 11-03-2023 Telephone encounter Note OK to schedule EGD or should patient be seen prior? Thank you [facility] 11-03-2023 Telephone encounter Note Okay to schedule EGD [facility] Work Phone: 11-03-2023 Telephone encounter Note ASA as inpatient was 4, should she be ASA 3 with Mac at the hospital? Cardiac clearance faxed for afib Thank you [facility] 11-03-2023 Telephone encounter Note Yes, please. ASA 3, MAC at hospital [facility] 11-03-2023 Telephone encounter Note Patient is currently inpatient at [facility]. Per notes in chart patient is septic. She will require an office visit with cardiology to obtain clearance to proceed with scheduling the EGD. Thank you [facility] 10-17-2023 Note XR CHEST 1 VW Procedure: Chest x-ray performed Number of views:AP portable History:Transient alteration of awareness Comparison:10/05/2023 Findings: The heart and lungs show no acute findings, and the mediastinum and bobby are grossly negative . Impression: No acute change. Finalized by Harris Wilde DO on 10/17/2023 5:08 PM [facility] 10-14-2023 Miscellaneous Notes Per [facility] pt wants to cancel appt, phoned pt and spoke with spouse and pt does indeed want to cancel appt and will call back at a later time to reschedule appt. documented in this encounter [facility] 10-14-2023 Telephone encounter Note Per [facility] pt wants to cancel appt, phoned pt and spoke with spouse and pt does indeed want to cancel appt and will call back at a later time to reschedule appt. [facility] 10-07-2023 History of Present illness Narrative Patient was admitted to [facility] from 09/20/2023 to 10/05/2023 for circulatory shock [...] Visit with [facility]PC scheduled 10/15/23. Gerardo Bonilla, [facility] 10/07/23 [id number] documented in this encounter [facility] 10-05-2023 History of Present illness Narrative Images from the original note were not included. [facility] [address] [place] [address] PROGRESS NOTE Harris Castrejon is resting in [...] This note was completed using a voice nurse informaticist system. Every effort was made to ensure accuracy. However, inadvertent computerized nurse informaticist errors may be present. NICOLAS Garces 10/05/23 [...] congestive heart failure with EF of 40-45%, ezqi-jg-gkfjftnz MR and moderate TR Anemia, on Aranesp [...] tube LILIA COX MD [facility] ANY QUESTIONS FEEL FREE TO CALL: 1. OFFICE [phone] 2. ANSWERING SERVICE:[phone] This note was created with the assistance of a speech-recognition program. Although the intention is to generate a document that actually reflects the content of the visit, no guarantees can be provided that every mistake has been identified and corrected by editing. Images from the original note were not included. [facility] Progress Note 10/04/2023 Patient Name: Harris Castrejon : 1955 Hospital Day: 15 SUBJECTIVE Follow-up for weakness The patient seen and examined. No acute events over night. No chest pain, palpitations or dizziness. Past Medical History: Diagnosis Date Arrhythmia Hypertension Injury of back Disc L4 and L5 Obesity Systolic and diastolic CHF, acute ([facility] 09/03/2023 Visual impairment Past Surgical History: Procedure Laterality Date Cardiac catheterization 02/16/2021 Performed by Kelli Su MD at [facility] CARDIAC CATH LABS Caval Tricuspid Isthmus RFA, Carto w/ICE N/A 03/21/2021 Performed by Lurdes Weinberg MD at [facility] HR (EP) Coronary angiogram and left ventricular gram/pressure N/A 02/16/2021 Performed by Kelli Su MD at [facility] CARDIAC CATH LABS Coronary fractional flow reserve N/A 02/16/2021 Performed by Kelli Su MD at [facility] CARDIAC CATH LABS Intravascular pressure measurement first vessel each additional vessel (fractional flow reserve) N/A 02/16/2021 Performed by Kelli Su MD at [facility] CARDIAC CATH LABS MYRINGOTOMY W/ TUBES TONSILLECTOMY [...] Problems Diagnosis Date Noted Acute kidney injury ([facility]) 09/20/2023 Resolved Problems No resolved problems to [...] kidney injury on CKD stage 4 requiring PANTOGRAPH I ENGRAVER-improving Received 2 sessions of hemodialysis 09/21, 09/22 [...] from the original note were not included. [facility] [address] [place] [address] PROGRESS NOTE Harris Castrejon does not have [...] to be tachycardia mediated Nonobstructive CAD per [facility] in 2020 with negative IFR but [...] This note was completed using a voice nurse informaticist system. Every effort was made to ensure accuracy. However, inadvertent computerized nurse informaticist errors may be present. Amrita Lira PA-C [...] congestive heart failure with EF of 40-45%, hdam-sq-tqpobglo MR and moderate TR Anemia, on Aranesp [...] tube LILIA COX MD [facility] ANY QUESTIONS FEEL FREE TO CALL: 1. OFFICE [phone] 2. ANSWERING SERVICE:[phone] This note was created with the assistance of a speech-recognition program. Although the intention is to generate a document that actually reflects the content of the visit, no guarantees can be provided that every mistake has been identified and corrected by editing. Images from the original note were not included. [facility] Note 10/03/2023 Patient [...] L5 Obesity Systolic and diastolic CHF, acute ([facility]) 09/03/2023 Visual impairment Past Surgical History: Procedure Laterality Date Cardiac catheterization 02/16/2021 Performed by Kelli Su MD at [facility] CARDIAC CATH LABS Caval Tricuspid Isthmus RFA, Carto w/ICE N/A 03/21/2021 Performed by Lurdes Weinberg MD at [facility] HR (EP) Coronary angiogram and left ventricular gram/pressure N/A 02/16/2021 Performed by Kelli Su MD at [facility] CARDIAC CATH LABS Coronary fractional flow reserve N/A 02/16/2021 Performed by Kelli Su MD at [facility] CARDIAC CATH LABS Intravascular pressure measurement first vessel each additional vessel (fractional flow reserve) N/A 02/16/2021 Performed by Kelli Su MD at [facility] CARDIAC CATH LABS MYRINGOTOMY W/ TUBES TONSILLECTOMY [...] Component Value Units Date/Time Blood culture #2 [[id number]] (Abnormal) Collected: 09/27/23 0538 Specimen: Blood Updated: 09/29/23 1037 Culture STAPHYLOCOCCUS, COAGULASE NEGATIVE NOT S.LUGDUNENSIS POSSIBLE COLLECTION CONTAMINATION. SINGLE POSITIVE CULTURE IS OF UNCERTAIN CLINICAL SIGNIFICANCE. SUGGEST CONTINUED MONITORING OF REMAINING BLOOD CULTURES. CONTACT MICROBIOLOGY IF FURTHER INFORMATION IS REQUIRED. Staphylococcus species detected by PCR (not S. aureus, S.epidermidis, or S.lugdunensis). Blood culture #1 [[id number]] Collected: 09/27/23 0431 Specimen: Blood Updated: 10/02/23 0546 Specimen Notes ONLY AEROBIC BOTTLE RECEIVED, SUBOPTIMAL VOLUME OF BLOOD COLLECTED, RESULTS MAY BE AFFECTED Culture NO GROWTH 5 DAYS Urine culture [[id number]] Collected: 09/27/23 0405 Specimen: Urine Updated: 09/28/23 [...] Problems Diagnosis Date Noted Acute kidney injury ([facility]) 09/20/2023 Resolved Problems No resolved problems to [...] kidney injury on CKD stage 4 requiring PANTOGRAPH I ENGRAVER Received 2 sessions of hemodialysis 09/21, 09/22 [...] convenience, so we can correct any mistakes. [facility] [address] [place] [address] PROGRESS NOTE Harris Castrejon patient was seen [...] Hx of atrial flutter s/p RFA 2020 Lbip-fq-bddcxzfz MR, moderate TR Moderate nonobstructive CAD - [facility] 01/2021 ITP Acute kidney injury Diabetes [...] This note was completed using a voice nurse informaticist system. Every effort was made to ensure accuracy. However, inadvertent computerized nurse informaticist errors may be present. Urology Progress Note [...] BECERRA 10/02/23 5:56 PM KAVYA Becerra 10/02/23 8456 Images from the original note were not [...] congestive heart failure with EF of 40-45%, ckiz-vl-zffcxatd MR and moderate TR Anemia, on Aranesp [...] tube LILIA COX MD [facility] ANY QUESTIONS FEEL FREE TO CALL: 1. OFFICE [phone] 2. ANSWERING SERVICE:[phone] This note was created with the assistance of a speech-recognition program. Although the intention is to generate a document that actually reflects the content of the visit, no guarantees can be provided that every mistake has been identified and corrected by editing. Images from the original note were not included. [facility] Progress Note 10/02/2023 Patient Name: Harris Castrejon : 1955 Hospital Day: 13 SUBJECTIVE Follow-up for weakness The patient seen and examined. No acute events over night. No chest pain. Past Medical History: Diagnosis Date Arrhythmia Hypertension Injury of back Disc L4 and L5 Obesity Systolic and diastolic CHF, acute ([facility]) 09/03/2023 Visual impairment Past Surgical History: Procedure Laterality Date Cardiac catheterization 02/16/2021 Performed by Kelli Su MD at [facility] CARDIAC CATH LABS Caval Tricuspid Isthmus RFA, Carto w/ICE N/A 03/21/2021 Performed by Lurdes Weinberg MD at [facility] HRC (EP) Coronary angiogram and left ventricular gram/pressure N/A 02/16/2021 Performed by Kelli Su MD at [facility] CARDIAC CATH LABS Coronary fractional flow reserve N/A 02/16/2021 Performed by Kelli Su MD at [facility] CARDIAC CATH LABS Intravascular pressure measurement first vessel each additional vessel (fractional flow reserve) N/A 02/16/2021 Performed by Kelli Su MD at [facility] CARDIAC CATH LABS MYRINGOTOMY W/ TUBES TONSILLECTOMY [...] Component Value Units Date/Time Blood culture #2 [[id number]] (Abnormal) Collected: 09/27/23 0538 Specimen: Blood Updated: 09/29/23 1037 Culture STAPHYLOCOCCUS, COAGULASE NEGATIVE NOT S.LUGDUNENSIS POSSIBLE COLLECTION CONTAMINATION. SINGLE POSITIVE CULTURE IS OF UNCERTAIN CLINICAL SIGNIFICANCE. SUGGEST CONTINUED MONITORING OF REMAINING BLOOD CULTURES. CONTACT MICROBIOLOGY IF FURTHER INFORMATION IS REQUIRED. Staphylococcus species detected by PCR (not S. aureus, S.epidermidis, or S.lugdunensis). Blood culture #1 [[id number]] Collected: 09/27/23 0431 Specimen: Blood Updated: 10/02/23 0546 Specimen Notes ONLY AEROBIC BOTTLE RECEIVED, SUBOPTIMAL VOLUME OF BLOOD COLLECTED, RESULTS MAY BE AFFECTED Culture NO GROWTH 5 DAYS Urine culture [[id number]] Collected: 09/27/23 0405 Specimen: Urine Updated: 09/28/23 [...] Problems Diagnosis Date Noted Acute kidney injury ([facility]) 09/20/2023 Resolved Problems No resolved problems to [...] kidney injury on CKD stage 4 requiring PANTOGRAPH I ENGRAVER Received 2 sessions of hemodialysis 09/21, 09/22 [...] from the original note were not included. [facility] [address] [place] [address] PROGRESS NOTE Harris Castrejon denies any chest [...] 40-45% per [facility] 09/04/2023 Nonobstructive CAD per [facility] in 2020 with negative IFR but [...] This note was completed using a voice nurse informaticist system. Every effort was made to ensure accuracy. However, inadvertent computerized nurse informaticist errors may be present. Amrita Lira PA-C [...] congestive heart failure with EF of 40-45%, lqdi-si-vkzkteif MR and moderate TR Anemia, on Aranesp [...] tube LILIA COX MD [facility] ANY QUESTIONS FEEL FREE TO CALL: 1. OFFICE [phone] 2. ANSWERING SERVICE:[phone] This note was created with the assistance [...] L5 Obesity Systolic and diastolic CHF, acute ([facility]) 09/03/2023 Visual impairment Past Surgical History: Procedure Laterality Date Cardiac catheterization 02/16/2021 Performed by Kelli Su MD at [facility] CARDIAC CATH LABS Caval Tricuspid Isthmus RFA, Carto w/ICE N/A 03/21/2021 Performed by Lurdes Weinberg MD at [facility] HR (EP) Coronary angiogram and left ventricular gram/pressure N/A 02/16/2021 Performed by Kelli Su MD at [facility] CARDIAC CATH LABS Coronary fractional flow reserve N/A 02/16/2021 Performed by Kelli Su MD at [facility] CARDIAC CATH LABS Intravascular pressure measurement first vessel each additional vessel (fractional flow reserve) N/A 02/16/2021 Performed by Kelli Su MD at [facility] CARDIAC CATH LABS MYRINGOTOMY W/ TUBES TONSILLECTOMY [...] Component Value Units Date/Time Blood culture #2 [[id number]] (Abnormal) Collected: 09/27/23 0538 Specimen: Blood Updated: 09/29/23 1037 Culture STAPHYLOCOCCUS, COAGULASE NEGATIVE NOT S.LUGDUNENSIS POSSIBLE COLLECTION CONTAMINATION. SINGLE POSITIVE CULTURE IS OF UNCERTAIN CLINICAL SIGNIFICANCE. SUGGEST CONTINUED MONITORING OF REMAINING BLOOD CULTURES. CONTACT MICROBIOLOGY IF FURTHER INFORMATION IS REQUIRED. Staphylococcus species detected by PCR (not S. aureus, S.epidermidis, or S.lugdunensis). Blood culture #1 [[id number]] Collected: 09/27/23 0431 Specimen: Blood Updated: 10/01/23 0546 Specimen Notes ONLY AEROBIC BOTTLE RECEIVED, SUBOPTIMAL VOLUME OF BLOOD COLLECTED, RESULTS MAY BE AFFECTED Culture NO GROWTH 4 DAYS Urine culture [[id number]] Collected: 09/27/23 0405 Specimen: Urine Updated: 09/28/23 [...] Problems Diagnosis Date Noted Acute kidney injury ([facility]) 09/20/2023 Resolved Problems No resolved problems to [...] kidney injury on CKD stage 4 requiring PANTOGRAPH I ENGRAVER Received 2 sessions of hemodialysis 09/21, 09/22 [...] from the original note were not included. [facility] [address] [place] [address] PROGRESS NOTE Harris Castrejon was seen examined [...] Hx of atrial flutter s/p RFA 2020 Wiuk-an-glimmjyq MR, moderate TR Moderate nonobstructive CAD - [facility] 01/2021 ITP Acute kidney injury Diabetes [...] This note was completed using a voice nurse informaticist system. Every effort was made to ensure accuracy. However, inadvertent computerized nurse informaticist errors may be present. Images from the original note were not included. Rapid Response Event Note Patient: Harris Castrejon : 1955 Age: 68 y.o. Length of Stay: 11 days Admission Diagnosis: Acute kidney injury ([facility]) [N17.9] SITUATION Time of Call: 1934 Arrival Time: 1944 Rapid Response called due to Soft blood pressures with Afib RVR, HR 100-140 BACKGROUND Past Medical History: Diagnosis Date Arrhythmia Hypertension Injury of back Disc L4 and L5 Obesity Systolic and diastolic CHF, acute ([facility]) 09/03/2023 Visual impairment ASSESSMENT Upon my arrival, [...] pt. Proamitine as scheduled, & notify Cardiology airway traffic controller. Asked RN to call with any further concerns. End of Call: 2004 Thank you, Samanta Molina RN Rapid Response: [facility] Images from the original note were not [...] 12 DEDE RIVERA D.O. [facility] Thank you for your consultation and allowing us to participate in the care of Harris Castrejon and please do not hesitate to call us with any questions at: Office: [phone] Office Answering Service: [phone] Please feel free to contact me through [employer] Secure chat during the daytime hours, if [...] from the original note were not included. [facility] Hospital[facility] Progress Note 09/30/2023 Patient Name: [...] clear, MMM. Neck supple. No JVD. CV: Fgqt-cj-fzwhfnou tachycardia, irregularly irregular rhythm, no m/r/g. Radial/DP/PT [...] chronic systolic heart failure with LVEF 40-45%, yyhq-if-lshnyovh MR/TR # nonobstructive CAD # persistent atrial fibrillation with rapid ventricular response, formerly on warfarin anticoagulation (held) # class 3 obesity # DM2, lyz-btqiesc-axwhshsha # UTI # acute metabolic encephalopathy with [...] hospital Electronically signed by: Reginald Resendiz MD [facility] Gastroenterology/Hepatology Progress Note IDENTIFYING DATA PATIENT: Harris [...] prn Discussed w/ attending physician NICOLAS Rascon [facility] [address] [address] PH: [phone] NICOLAS Davalos 09/30/23 1427 Images from the original note were not included. [facility] [address] [place] [address] PROGRESS NOTE Harris Castrejon currently getting washed [...] This note was completed using a voice nurse informaticist system. Every effort was made to ensure accuracy. However, inadvertent computerized nurse informaticist errors may be present. Magdi Dailey PA-C [...] 40-45% Nonobstructive atherosclerotic heart disease of [place] coronary arteries without angina pectoris Acute respiratory [...] This note was completed using a voice nurse informaticist system. Every effort was made to ensure accuracy. However, inadvertent computerized nurse informaticist errors may be present. Images from the [...] chloride Ulisses Silver M.D. [facility] Thank you for your consultation and allowing us to participate in the care of Harris Castrejon and please do not hesitate to call us with any questions at: Office: [phone] Office Answering Service: [phone] Please feel free to contact me through [employer] Secure chat during the daytime hours, if [...] systolic congestive heart failure with EF 40-45%, ryeg-wd-vfolrraz MR and moderate TR GI bleed with [...] is just a continual money grab by [employer]. He raised his voice and began arguing about a previous hospitalizations billing charges. Salbador Howell, DOLORES-HELIARC WELDER Subjective Patient states that she feels fine [...] Component Value Units Date/Time Blood culture #2 [[id number]] (Abnormal) Collected: 09/27/23537 Specimen: Blood Updated: 09/28/23336 Culture GRAM POSITIVE COCCI IN CLUSTERS CULTURE IN PROGRESS Staphylococcus species detected by PCR (not S. aureus, S.epidermidis, or S.lugdunensis). Blood culture #1 [[id number]] Collected: 09/27/23430 Specimen: Blood Updated: 09/29/23 0546 Specimen Notes ONLY AEROBIC BOTTLE RECEIVED, SUBOPTIMAL VOLUME OF BLOOD COLLECTED, RESULTS MAY BE AFFECTED Culture NO GROWTH 2 DAYS Urine culture [[id number]] Collected: 09/27/23 0405 Specimen: Urine Updated: 09/28/23 0701 Specimen Notes URINE RECEIVED WITHOUT PRESERVATIVE Culture NO GROWTH AT <1000 CFU/mL Urine culture [[id number]] Collected: 09/23/23 2110 Specimen: Urine Updated: 09/24/23 [...] Component Value Units Date/Time Blood culture #2 [[id number]] (Abnormal) Collected: 09/27/23537 Specimen: Blood Updated: 09/28/23336 Culture GRAM POSITIVE COCCI IN CLUSTERS CULTURE IN PROGRESS Staphylococcus species detected by PCR (not S. aureus, S.epidermidis, or S.lugdunensis). Blood culture #1 [[id number]] Collected: 12/29/23 0431 Specimen: Blood Updated: 09/29/23 0546 Specimen Notes ONLY AEROBIC BOTTLE RECEIVED, SUBOPTIMAL VOLUME OF BLOOD COLLECTED, RESULTS MAY BE AFFECTED Culture NO GROWTH 2 DAYS Urine culture [[id number]] Collected: 09/27/23 0405 Specimen: Urine Updated: 09/28/23 0701 Specimen Notes URINE RECEIVED WITHOUT PRESERVATIVE Culture NO GROWTH AT <1000 CFU/mL Urine culture [[id number]] Collected: 09/23/23 2110 Specimen: Urine Updated: 09/24/23 [...] titration of care by a Critical Care Small Lot Operator. Failure to do so may result in further organ system failure, imminent deterioration, or . NICOLAS Webb 09/29/23 1037 [facility] Gastroenterology/Hepatology Progress Note IDENTIFYING [...] INR<1.5 D/w GI attending Nayana Murrieta PA-C [facility] [place] [address] CHALINO Line [phone] PH: [phone] KAVYA Faulkner 09/29/23 0940 Images from the original note were not included. [facility] [address] [place] [address] PROGRESS NOTE Harris Castrejon it is resting [...] 40-45% per [facility] 09/04/2023 Nonobstructive CAD per [facility] Acute hypoxemic respiratory failure secondary to [...] This note was completed using a voice nurse informaticist system. Every effort was made to ensure accuracy. However, inadvertent computerized nurse informaticist errors may be present. Amrita Lira PA-C 09/29/23 0044 [facility] I have personally performed a [...] 40-45% Nonobstructive atherosclerotic heart disease of [place] coronary arteries without angina pectoris Acute respiratory [...] This note was completed using a voice nurse informaticist system. Every effort was made to ensure accuracy. However, inadvertent computerized nurse informaticist errors may be present. Images from the [...] L5 Obesity Systolic and diastolic CHF, acute ([facility]) 09/03/2023 Visual impairment PAST SURGERY HISTORY: Past Surgical History: Procedure Laterality Date Cardiac catheterization 02/16/2021 Performed by Kelli Su MD at [facility] CARDIAC CATH LABS Caval Tricuspid Isthmus RFA, Carto w/ICE N/A 03/21/2021 Performed by Lurdes Weinberg MD at [facility] HR (EP) Coronary angiogram and left ventricular gram/pressure N/A 02/16/2021 Performed by Kelli Su MD at [facility] CARDIAC CATH LABS Coronary fractional flow reserve N/A 02/16/2021 Performed by Kelli Su MD at [facility] CARDIAC CATH LABS Intravascular pressure measurement first vessel each additional vessel (fractional flow reserve) N/A 02/16/2021 Performed by Kelli Su MD at [facility] CARDIAC CATH LABS MYRINGOTOMY W/ TUBES TONSILLECTOMY [...] Component Value Units Date/Time Blood culture #2 [[id number]] (Abnormal) Collected: 09/27/23 0538 Specimen: Blood Updated: 09/28/23 0337 Culture GRAM POSITIVE COCCI IN CLUSTERS CULTURE IN PROGRESS Staphylococcus species detected by PCR (not S. aureus, S.epidermidis, or S.lugdunensis). Blood culture #1 [[id number]] Collected: 09/27/23 0431 Specimen: Blood Updated: 09/28/23 0546 Specimen Notes ONLY AEROBIC BOTTLE RECEIVED, SUBOPTIMAL VOLUME OF BLOOD COLLECTED, RESULTS MAY BE AFFECTED Culture NO GROWTH 1 DAY Urine culture [[id number]] Collected: 09/27/23 0405 Specimen: Urine Updated: 09/28/23 0701 Specimen Notes URINE RECEIVED WITHOUT PRESERVATIVE Culture NO GROWTH AT <1000 CFU/mL Urine culture [[id number]] Collected: 09/23/23 2110 Specimen: Urine Updated: 09/24/23 [...] solution 25 mL, 25 mL, intravenous, PRN, NICOLSA Webb folic acid (FOLVITE) tablet 1 mg, [...] premix), 4,000 mg, intravenous, PRN, Salbador Howell, MATERIAL HANDLER 2ND SHIFT-HELIARC WELDER metOLazone (ZAROXOLYN) tablet 10 mg, 10 mg, [...] EC tablet 40 mg, 40 mg, oral, [facility], KAVYA Rosario, 40 mg at 09/28/23 0612 phenylephrine (EDMOND-SYNEPHRINE) 100 mg in sodium chloride 0.9 % 250 mL (0.4 mg/mL) infusion, 0.5-2.5 mcg/kg/min, intravenous, Continuous, Danie Reid, MATERIAL HANDLER 2ND SHIFT-HELIARC WELDER, Stopped at 09/27/23 1331 potassium chloride (K-TAB,KLOR-CON) [...] mL, 10 mL, intravenous, Q96H, Shiraz Danny, MATERIAL HANDLER 2ND SHIFT-HELIARC WELDER, 10 mL at 09/25/23 1212 sodium chloride 0.9 % flush 10 mL, 10 mL, intravenous, PRN, Shiraz Danny, MATERIAL HANDLER 2ND SHIFT-HELIARC WELDER, 10 mL at 09/21/23 1153 sodium chloride 0.9 % flush 10 mL, 10 mL, intravenous, PRN, Shiraz Danny, MATERIAL HANDLER 2ND SHIFT-HELIARC WELDER, 10 mL at 09/21/23 1500 sodium chloride 0.9 % flush 10 mL, 10 mL, intravenous, Q96H, Shiraz Danny, MATERIAL HANDLER 2ND SHIFT-HELIARC WELDER, 10 mL at 09/25/23 1212 sodium chloride 0.9 % flush 10 mL, 10 mL, intravenous, PRN, Shiraz Danny, MATERIAL HANDLER 2ND SHIFT-HELIARC WELDER, 10 mL at 09/21/23 1153 sodium chloride 0.9 % flush 10 mL, 10 mL, intravenous, PRN, Shiraz Danny, MATERIAL HANDLER 2ND SHIFT-HELIARC WELDER, 10 mL at 09/21/23 1500 sodium chloride [...] mL, 2 mL, intravenous, PRN, Shiraz Danny, MATERIAL HANDLER 2ND SHIFT-HELIARC WELDER sodium chloride 0.9 % flush 3 mL, 3 mL, intravenous, Q12H, Tanner Harris MD, 3 mL at 09/28/23 0931 sodium chloride 0.9 % infusion, 10 mL/hr, intravenous, Continuous PRN, Salbador Howell, MATERIAL HANDLER 2ND SHIFT-HELIARC WELDER sodium chloride 0.9 % infusion, 10 mL/hr, intravenous, Continuous PRN, Salbador Howell MATERIAL HANDLER 2ND SHIFT-HELIARC WELDER, Stopped at 09/25/23 0130 sodium chloride 0.9 % infusion, 10 mL/hr, intravenous, Continuous PRN, Salbador Howell MATERIAL HANDLER 2ND SHIFT-HELIARC WELDER, Last Rate: 10 mL/hr at 09/28/23 1045, [...] mL, 2 mL, intravenous, Q96H, Shiraz Danny, MATERIAL HANDLER 2ND SHIFT-HELIARC WELDER, 2 mL at 09/25/23 1213 sodium citrate 4 % (3 mL) flush 2 mL, 2 mL, intravenous, PRN, Shiraz Danny, MATERIAL HANDLER 2ND SHIFT-HELIARC WELDER, 2 mL at 09/22/23 1151 sodium citrate 4 % (3 mL) flush 2 mL, 2 mL, intravenous, Q96H, Shiraz Danny, MATERIAL HANDLER 2ND SHIFT-HELIARC WELDER, 2 mL at 09/25/23 1213 sodium citrate 4 % (3 mL) flush 2 mL, 2 mL, intravenous, PRN, Shiraz Danny, MATERIAL HANDLER 2ND SHIFT-HELIARC WELDER, 2 mL at 09/22/23 1150 Anel Lara [...] family Ulisses Silver M.D. [facility] Thank you for your consultation and allowing us to participate in the care of Harris Castrejon and please do not hesitate to call us with any questions at: Office: [phone] Office Answering Service: [phone] Please feel free to contact me through YellowKorner Secure chat during the daytime hours, if [...] from the original note were not included. [facility] Gurpreet Nagy M.D. Racquel Langston M.D. Sonya Ruelas M.D. Sunni Stack M.D. Tara Funes, MATERIAL HANDLER 2ND SHIFT-HELIARC WELDER Keron Gtzxochitl, MATERIAL HANDLER 2ND SHIFT-HELIARC WELDER Tiffanie Segal, MATERIAL HANDLER 2ND SHIFT-HELIARC WELDER Rufina Dowd, MATERIAL HANDLER 2ND SHIFT-HELIARC WELDER JUAN Brown M.D. Steve Cline M.D. Alfred Adams M.D. Carole Gaviria, MATERIAL HANDLER 2ND SHIFT-HELIARC WELDER Jenny Calhoun, MATERIAL HANDLER 2ND SHIFT-HELIARC WELDER Tian Dhaliwal, MATERIAL HANDLER 2ND SHIFT-HELIARC WELDER Yeny Medrano, MATERIAL HANDLER 2ND SHIFT-HELIARC WELDER Mendy Nielsen, MATERIAL HANDLER 2ND SHIFT-[facility] Interval History/Subjective: Harris Castrejon was seen and examined. In bed. No acute complaints. ROS: 10+ review of system was performed and pertinent positive and negative findings are mentioned above in the HPI HPI (adapted from initial consult): Harris Castrejon is a 68 y.o. female with a PMHx of atrial fibrillation, HTN, CKD now on dialysis, CHF, and obesity. She presented to [facility] from [facility] with complaints of generalized weakness. She was recently admitted earlier in August and diagnosed with kidney disease, but was not on dialysis. Upon arrival to [place] [facility], she was found to have an INR of 16.6, a creatinine of 6.52, while being hypotensive requiring pressor support. She was transferred to [facility] for further evaluation and management. During her [...] premix), 4,000 mg, intravenous, PRN, Salbador Howell, MATERIAL HANDLER 2ND SHIFT-HELIARC WELDER metOLazone (ZAROXOLYN) tablet 10 mg, 10 mg, [...] mL, 10 mL, intravenous, Q96H, Shiraz Delgado APRN-HELIARC WELDER, 10 mL at 09/25/23 1212 sodium chloride 0.9 % flush 10 mL, 10 mL, intravenous, PRN, Shiraz Danny, MATERIAL HANDLER 2ND SHIFT-HELIARC WELDER, 10 mL at 09/21/23 1153 sodium chloride 0.9 % flush 10 mL, 10 mL, intravenous, PRN, Shiraz Danny, MATERIAL HANDLER 2ND SHIFT-HELIARC WELDER, 10 mL at 09/21/23 1500 sodium chloride 0.9 % flush 10 mL, 10 mL, intravenous, Q96H, Shiraz Danny, MATERIAL HANDLER 2ND SHIFT-HELIARC WELDER, 10 mL at 09/25/23 1212 sodium chloride 0.9 % flush 10 mL, 10 mL, intravenous, PRN, Shiraz Danny, MATERIAL HANDLER 2ND SHIFT-HELIARC WELDER, 10 mL at 09/21/23 1153 sodium chloride 0.9 % flush 10 mL, 10 mL, intravenous, PRN, Shiraz Danny, MATERIAL HANDLER 2ND SHIFT-HELIARC WELDER, 10 mL at 09/21/23 1500 sodium chloride [...] mL, 2 mL, intravenous, PRN, Shiraz Danny, MATERIAL HANDLER 2ND SHIFT-HELIARC WELDER sodium chloride 0.9 % flush 3 mL, 3 mL, intravenous, Q12H, Tanner Harris MD, 3 mL at 09/28/23 0931 sodium chloride 0.9 % infusion, 10 mL/hr, intravenous, Continuous PRN, Salbador Howell, MATERIAL HANDLER 2ND SHIFT-HELIARC WELDER sodium chloride 0.9 % infusion, 10 mL/hr, intravenous, Continuous PRN, Salbador Howell MATERIAL HANDLER 2ND SHIFT-HELIARC WELDER, Stopped at 09/25/23 0130 sodium chloride 0.9 % infusion, 10 mL/hr, intravenous, Continuous PRN, Salbador Howell, MATERIAL HANDLER 2ND SHIFT-HELIARC WELDER, Last Rate: 10 mL/hr at 09/28/23 0624, [...] mL, 2 mL, intravenous, Q96H, Shiraz Danny, MATERIAL HANDLER 2ND SHIFT-HELIARC WELDER, 2 mL at 09/25/23 1213 sodium citrate 4 % (3 mL) flush 2 mL, 2 mL, intravenous, PRN, Shiraz Danny, MATERIAL HANDLER 2ND SHIFT-HELIARC WELDER, 2 mL at 09/22/23 1151 sodium citrate 4 % (3 mL) flush 2 mL, 2 mL, intravenous, Q96H, Shiraz Danny, MATERIAL HANDLER 2ND SHIFT-HELIARC WELDER, 2 mL at 09/25/23 1213 sodium citrate 4 % (3 mL) flush 2 mL, 2 mL, intravenous, PRN, Shiraz Danny, MATERIAL HANDLER 2ND SHIFT-HELIARC WELDER, 2 mL at 09/22/23 1150 Diagnosis Problem list: Patient Active Problem List Diagnosis Cerumen debris on tympanic membrane of both ears Typical atrial flutter ([facility]) Coronary artery disease involving [place] coronary artery of [place] heart without angina pectoris Tachycardia induced cardiomyopathy ([facility]) Type 2 diabetes mellitus with circulatory disorder, without long-term current use of insulin ([facility]) Other hyperlipidemia Paroxysmal atrial fibrillation ([facility]) BRANDEE (acute kidney injury) ([facility]) Hyperkalemia Bilateral lower extremity edema Systolic and diastolic CHF, acute ([facility]) Acute kidney injury ([facility]) Impression: Acute Hypoxic Respiratory Failure Paroxysmal Atrial [...] have underlying chronic ITP PF4 0.113 (negative) [id number] Activity is normal, unlikely TTP (no other [...] outpatient for continued monitoring (Dr Barnes in [place]). Our team will arrange. -If her platelet [...] physician on service today, Dr. Douglas Funes, MATERIAL HANDLER 2ND SHIFT, AOCNP [facility] [address] [place] [address] Day time contact: After hours answering service: [phone] September 28, 2023, 10:16 AM I, Gurpreet [...] acute ITP, folic acid deficiency. PF4 (-). [id number] normal. Folate is low. B12 normal. Ferritin [...] from the original note were not included. [facility] [address] [place] [address] PROGRESS NOTE Harris Castrejon is resting comfortably [...] per 24 hour Intake 1536.68 ml Output 728138 ml Net -631978.32 ml General appearance: In no acute distress [...] 40-45% per TTE 09/04/2023 Nonobstructive CAD per [facility] Acute hypoxemic respiratory failure secondary to [...] This note was completed using a voice nurse informaticist system. Every effort was made to ensure accuracy. However, inadvertent computerized nurse informaticist errors may be present. Amrita Lira PA-C 09/28/23 0229 [facility] I have personally performed a [...] 40-45% Nonobstructive atherosclerotic heart disease of the [place] coronary arteries without angina pectoris Acute respiratory [...] This note was completed using a voice nurse informaticist system. Every effort was made to ensure accuracy. However, inadvertent computerized nurse informaticist errors may be present. Images from the [...] level Ulisses Silver M.D. [facility] Thank you for your consultation and allowing us to participate in the care of Harris Castrejon and please do not hesitate to call us with any questions at: Office: [phone] Office Answering Service: [phone] Please feel free to contact me through [employer]Korner Secure chat during the daytime hours, if no response after 5 minutes then call the answering service. This note was created with the assistance of a speech-recognition program. Although the intention is to generate a document that actually reflects the content of the visit, no guarantees can be provided that every mistake has been identified and corrected by editing. [facility] Gastroenter[facility]/Hepatology Progress Note IDENTIFYING [...] tablet 1 mg, 1 mg, oral, Daily, Kreon Stahl, NICOLAS, 1 mg at 09/26/23 0817 [...] (40 mg/mL premix), 4,000 mg, intravenous, PRN, NICOLSA Webb metOLazone (ZAROXOLYN) tablet 10 mg, 10 [...] infusion, 0.5-2.5 mcg/kg/min, intravenous, Continuous, Danie Reid, MATERIAL HANDLER 2ND SHIFT-HELIARC WELDER, Last Rate: 5.6 mL/hr at 09/27/23 1033, [...] mL, 10 mL, intravenous, Q96H, Shiraz Delgado, MATERIAL HANDLER 2ND SHIFT-HELIARC WELDER, 10 mL at 09/25/23 1212 sodium chloride 0.9 % flush 10 mL, 10 mL, intravenous, PRN, Shiraz Delgado, MATERIAL HANDLER 2ND SHIFT-HELIARC WELDER, 10 mL at 09/21/23 1153 sodium chloride 0.9 % flush 10 mL, 10 mL, intravenous, PRN, Shiraz Delgado, MATERIAL HANDLER 2ND SHIFT-HELIARC WELDER, 10 mL at 09/21/23 1500 sodium chloride 0.9 % flush 10 mL, 10 mL, intravenous, Q96H, Shiraz Delgado, MATERIAL HANDLER 2ND SHIFT-HELIARC WELDER, 10 mL at 09/25/23 1212 sodium chloride 0.9 % flush 10 mL, 10 mL, intravenous, PRN, Shiraz Delgado, MATERIAL HANDLER 2ND SHIFT-HELIARC WELDER, 10 mL at 09/21/23 1153 sodium chloride 0.9 % flush 10 mL, 10 mL, intravenous, PRN, Shiraz Delgado MATERIAL HANDLER 2ND SHIFT-HELIARC WELDER, 10 mL at 09/21/23 1500 sodium chloride [...] mL, 2 mL, intravenous, PRN, Shiraz Delgado MATERIAL HANDLER 2ND SHIFT-HELIARC WELDER sodium chloride 0.9 % flush 3 mL, 3 mL, intravenous, Q12H, Tanner Harris MD, 3 mL at 09/27/23 0951 sodium chloride 0.9 % infusion, 10 mL/hr, intravenous, Continuous PRN, Salbador Howell APRN-ALNIA sodium chloride 0.9 % infusion, 10 mL/hr, intravenous, Continuous PRN, Salbador Howell APRN-HELIARC WELDER, Stopped at 09/25/23 0130 sodium chloride 0.9 % infusion, 10 mL/hr, intravenous, Continuous PRN, Salbador Howell APRN-HELIARC WELDER, Stopped at 09/26/23 2107 sodium chloride 0.9 % infusion, 20 mL/hr, intravenous, Continuous PRN, Tanner Harris MD, Stopped at 09/27/23 0623 sodium chloride 0.9 % infusion, 250 mL, hemodialysis, Continuous, Vidhit Miguel, DO sodium chloride 0.9 % infusion, 250 mL, hemodialysis, Continuous, Vidhit Miguel, DO sodium citrate 4 % (3 mL) flush 2 mL, 2 mL, intravenous, Q96H, Shiraz Delgado APRN-HELIARC WELDER, 2 mL at 09/25/23 1213 sodium citrate 4 % (3 mL) flush 2 mL, 2 mL, intravenous, PRN, Shiraz Delgado APRN-HELIARC WELDER, 2 mL at 09/22/23 1151 sodium citrate 4 % (3 mL) flush 2 mL, 2 mL, intravenous, Q96H, Shiraz Delgado, MATERIAL HANDLER 2ND SHIFT-HELIARC WELDER, 2 mL at 09/25/23 1213 sodium citrate 4 % (3 mL) flush 2 mL, 2 mL, intravenous, PRN, Shiraz Delgado, MATERIAL HANDLER 2ND SHIFT-HELIARC WELDER, 2 mL at 09/22/23 1150 PRNs: calcium [...] Component Value Units Date/Time Blood culture #2 [[id number]] Resulted: 09/27/23538 Specimen: Blood, Peripheral Draw Updated: 09/27/23538 Urine culture [[id number]] Resulted: 09/27/23529 Specimen: Urine Updated: 09/27/23537 Blood culture #1 [[id number]] Resulted: 09/27/23431 Specimen: Blood, Peripheral Draw Updated: 09/27/23431 Urine culture [[id number]] Collected: 09/23/232109 Specimen: Urine Updated: 09/24/23 163 [...] workup. Discussed with GI attending [facility] [address] [address] PH: [phone] KAVYA Amos 09/27/23 5102 CRITICAL CARE PROGRESS NOTE Name: Harris Castrejon [...] Hospital Problem: Principal Problem: Acute kidney injury ([facility]) OBJECTIVE Vital Signs Temp: [36.5 C (97.7 [...] Component Value Units Date/Time Blood culture #2 [[id number]] Resulted: 09/27/23538 Specimen: Blood, Peripheral Draw Updated: 09/27/23538 Urine culture [[id number]] Resulted: 09/27/23529 Specimen: Urine Updated: 09/27/23537 Blood culture #1 [[id number]] Resulted: 09/27/23431 Specimen: Blood, Peripheral Draw Updated: 09/27/23431 Urine culture [[id number]] Collected: 09/23/232109 Specimen: Urine Updated: 09/24/23 163 [...] HODGSON MD, on 09/27/2023 at 1:53 PM [facility] Images from the original note were not included. [facility] Gurpreet Nagy M.D. Steve Mccollum M.D. Ali Raufi, M.D. Megan E Stephan, [facility] Keron Stahl, [facility] Tiffanie Segal, MATERIAL HANDLER [facility] Rufina Dowd, [facility] JUAN Brown M.D. Feng Jiang, M.D. Jeffrey Muler, M.D. Alfred Adams M.D. Carole Gaviria, [facility] Jenny Calhoun, [facility] Tian Dhaliwal, [facility] Yeny Medrano, [facility] Mendy Rodrigues, [facility] PROGRESS NOTE Subjective: [...] dialysis, CHF, and obesity. She presented to [facility] from [facility] with complaints of generalized weakness. She was recently admitted earlier in August and diagnosed with kidney disease, but was not on dialysis. Upon arrival to [place] [facility], she was found to have an INR of 16.6, a creatinine of 6.52, while being hypotensive requiring pressor support. She was transferred to [facility] for further evaluation and management. During her [...] Lilia Cox MD, 20 mEq at 09/26/23 1424 sennosides-docusate sodium (SENOKOT-S) 8.6-50 mg 2 tablet, 2 tablet, oral, Nightly, Samanta Wright MD sevelamer (RENVELA) tablet 800 mg, 800 mg, oral, TID with meals, Dede Gallegosi, DO, 800 mg at 09/26/23 1208 sodium chloride 0.9 % flush 10 mL, 10 mL, intravenous, Q96H, Shiraz Danny, MATERIAL HANDLER 2ND SHIFT-HELIARC WELDER, 10 mL at 09/25/23 1212 sodium chloride 0.9 % flush 10 mL, 10 mL, intravenous, PRN, Shiraz Danny, MATERIAL HANDLER 2ND SHIFT-HELIARC WELDER, 10 mL at 09/21/23 1153 sodium chloride 0.9 % flush 10 mL, 10 mL, intravenous, PRN, Shiraz Danny, MATERIAL HANDLER 2ND SHIFT-HELIARC WELDER, 10 mL at 09/21/23 1500 sodium chloride 0.9 % flush 10 mL, 10 mL, intravenous, Q96H, Shiraz Danny, MATERIAL HANDLER 2ND SHIFT-HELIARC WELDER, 10 mL at 09/25/23 1212 sodium chloride 0.9 % flush 10 mL, 10 mL, intravenous, PRN, Shiraz Danny, MATERIAL HANDLER 2ND SHIFT-HELIARC WELDER, 10 mL at 09/21/23 1153 sodium chloride 0.9 % flush 10 mL, 10 mL, intravenous, PRN, Shiraz Danny, MATERIAL HANDLER 2ND SHIFT-HELIARC WELDER, 10 mL at 09/21/23 1500 sodium chloride [...] mL, 2 mL, intravenous, PRN, Shiraz Delgado, MATERIAL HANDLER 2ND SHIFT-HELIARC WELDER sodium chloride 0.9 % flush 3 mL, 3 mL, intravenous, Q12H, Tanner Harris MD, 3 mL at 09/26/23 1102 sodium chloride 0.9 % infusion, 10 mL/hr, intravenous, Continuous PRN, Salbador Howell MATERIAL HANDLER 2ND SHIFT-HELIARC WELDER sodium chloride 0.9 % infusion, 10 mL/hr, intravenous, Continuous PRN, Salbador Howell MATERIAL HANDLER 2ND SHIFT-HELIARC WELDER, Stopped at 09/25/23 0130 sodium chloride 0.9 % infusion, 10 mL/hr, intravenous, Continuous PRN, Salbador Howell MATERIAL HANDLER 2ND SHIFT-HELIARC WELDER, Last Rate: 10 mL/hr at 09/26/23 0635, [...] mL, 2 mL, intravenous, Q96H, Shiraz Danny, MATERIAL HANDLER 2ND SHIFT-HELIARC WELDER, 2 mL at 09/25/23 1213 sodium citrate 4 % (3 mL) flush 2 mL, 2 mL, intravenous, PRN, Shiraz Danny, MATERIAL HANDLER 2ND SHIFT-HELIARC WELDER, 2 mL at 09/22/23 1151 sodium citrate 4 % (3 mL) flush 2 mL, 2 mL, intravenous, Q96H, Shiraz Danny, MATERIAL HANDLER 2ND SHIFT-HELIARC WELDER, 2 mL at 09/25/23 1213 sodium citrate 4 % (3 mL) flush 2 mL, 2 mL, intravenous, PRN, Shiraz Delgado, MATERIAL HANDLER 2ND SHIFT-HELIARC WELDER, 2 mL at 09/22/23 1150 Diagnosis Problem list: Patient Active Problem List Diagnosis Cerumen debris on tympanic membrane of both ears Typical atrial flutter ([facility]-H[facility]) Coronary artery disease involving [place] coronary artery of [place] heart without angina pectoris Tachycardia induced cardiomyopathy ([facility]) Type 2 diabetes mellitus with circulatory disorder, without long-term current use of insulin ([facility]) Other hyperlipidemia Paroxysmal atrial fibrillation ([facility]) BRANDEE (acute kidney injury) ([facility]) Hyperkalemia Bilateral lower extremity edema Systolic and diastolic CHF, acute ([facility]) Acute kidney injury ([facility]) Assessment/Plan Impression: #. 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 Baseline appears to be > 100,000. - [id number] normal - PF4 negative - Peripheral smear [...] primary and consulted services. Patient lives in [place] and could follow up with Dr. Barnes [...] on service today, Dr. Nagy. Keron Stahl, MATERIAL HANDLER 2ND SHIFT-HELIARC WELDER [facility] [address] [place] [address] YellowKorner Chat is my preferred mode of contact. For after hours (evening, weekends, holidays) Hematology Oncology needs, please call the airway traffic controller service [phone]. Please ask for the MD airway traffic controller. September 26, 2023, 3:45 PM Gurpreet Lang [...] acute ITP, folic acid deficiency. PF4 (-). [id number] normal. Folate is low. B12 normal. Ferritin [...] tomorrow Ulisses Silver M.D. [facility] Thank you for your consultation and allowing us to participate in the care of Harris Castrejon and please do not hesitate to call us with any questions at: Office: [phone] Office Answering Service: [phone] Please feel free to contact me through YellowKorner Secure chat during the daytime hours, if [...] of the ICU. Report was called to [facility], Dr. Scott. Critical Care will sign off on transfer. Thank you. EL Ruiz, PA-C [facility] 11:20 AM 09/26/23 KAVYA Rosario 09/26/23 1120 [facility] Gastroenterology/Hepatology Progress Note IDENTIFYING [...] mL, 10 mL, intravenous, Q96H, Shiraz Danny, MATERIAL HANDLER 2ND SHIFT-HELIARC WELDER, 10 mL at 09/25/23 1212 sodium chloride 0.9 % flush 10 mL, 10 mL, intravenous, PRN, Shiraz Danny, MATERIAL HANDLER 2ND SHIFT-HELIARC WELDER, 10 mL at 09/21/23 1153 sodium chloride 0.9 % flush 10 mL, 10 mL, intravenous, PRN, Shiraz Danny, MATERIAL HANDLER 2ND SHIFT-HELIARC WELDER, 10 mL at 09/21/23 1500 sodium chloride 0.9 % flush 10 mL, 10 mL, intravenous, Q96H, Shiraz Danny, MATERIAL HANDLER 2ND SHIFT-HELIARC WELDER, 10 mL at 09/25/23 1212 sodium chloride 0.9 % flush 10 mL, 10 mL, intravenous, PRN, Shiraz Danny, MATERIAL HANDLER 2ND SHIFT-HELIARC WELDER, 10 mL at 09/21/23 1153 sodium chloride 0.9 % flush 10 mL, 10 mL, intravenous, PRN, Shiraz Danny, MATERIAL HANDLER 2ND SHIFT-HELIARC WELDER, 10 mL at 09/21/23 1500 sodium chloride [...] mL, 2 mL, intravenous, PRN, Shiraz Delgado MATERIAL HANDLER 2ND SHIFT-HELIARC WELDER sodium chloride 0.9 % flush 3 mL, 3 mL, intravenous, Q12H, Tanner Harris MD, 3 mL at 09/25/23 2245 sodium chloride 0.9 % infusion, 10 mL/hr, intravenous, Continuous PRN, Salbador Howell APRN-ALINA sodium chloride 0.9 % infusion, 10 mL/hr, intravenous, Continuous PRN, Salbador Howell APRN-HELIARC WELDER, Stopped at 09/25/23 0130 sodium chloride 0.9 [...] mL, 2 mL, intravenous, Q96H, Shiraz Delgado MATERIAL HANDLER 2ND SHIFT-HELIARC WELDER, 2 mL at 09/25/23 1213 sodium citrate 4 % (3 mL) flush 2 mL, 2 mL, intravenous, PRN, Shiraz Delgado, MATERIAL HANDLER 2ND SHIFT-HELIARC WELDER, 2 mL at 09/22/23 1151 sodium citrate 4 % (3 mL) flush 2 mL, 2 mL, intravenous, Q96H, Shiraz Delgado, MATERIAL HANDLER 2ND SHIFT-HELIARC WELDER, 2 mL at 09/25/23 1213 sodium citrate 4 % (3 mL) flush 2 mL, 2 mL, intravenous, PRN, Shiraz Delgado, MATERIAL HANDLER 2ND SHIFT-HELIARC WELDER, 2 mL at 09/22/23 1150 sodium zirconium cyclosilicate (LOKELMA) packet 10 g, 10 g, oral, Daily with lunch, Salbador Howell APRN-HELIARC WELDER, 10 g at 09/24/23 1200 PRNs: calcium [...] Procedure Component Value Units Date/Time Urine culture [[id number]] Collected: 09/23/23 2110 Specimen: Urine Updated: 09/24/23 1633 Culture NO GROWTH AT <1000 CFU/mL Blood culture [[id number]] Collected: 09/19/23 2342 Specimen: Blood Updated: 09/25/23 1029 Culture NO GROWTH 5 DAYS Blood culture [[id number]] Collected: 09/19/23 2329 Specimen: Blood Updated: 09/25/23 1025 Culture NO GROWTH 5 DAYS SARS/FLU A+B/RSV by NAAT/Molecular (M4RT Collection Tube) [[id number]] Collected: 09/19/23 232 Specimen: Nasopharynx Updated: 09/20/23 [...] Discussed with GI attending Nola Reed PA-C [facility] [place] [address] PH: [phone] KAVYA Weiss 09/26/23 1320 Images from the original note were not [...] RN and Dr. Wright. EL Ruiz, EDC [facility] Please feel free to contact me via Patient Touch. This patient, with a critical illness, requires constant monitoring and titration of care by a Critical Care Small Lot Operator or CHALINO. Failure to do so may [...] Procedure Component Value Units Date/Time Urine culture [[id number]] Collected: 09/23/23 2110 Specimen: Urine Updated: 09/24/23 1633 Culture NO GROWTH AT <1000 CFU/mL Blood culture [[id number]] Collected: 09/19/23 234 Specimen: Blood Updated: 09/25/23 1029 Culture NO GROWTH 5 DAYS Blood culture [[id number]] Collected: 09/19/232328 Specimen: Blood Updated: 09/25/23 1025 Culture NO GROWTH 5 DAYS SARS/FLU A+B/RSV by NAAT/Molecular (M4RT Collection Tube) [[id number]] Collected: 09/19/232325 Specimen: Nasopharynx Updated: 09/20/2328 FLU [...] %, 250 mL KAVYA Rosario 09/26/23 0955 [facility] G[facility]Hepatology Progress Note SUBJECTIVE/INTERVAL HISTORY: Harris Castrejon's [...] tablet 20 mg, 20 mg, oral, Q48H, NIOCLAS Webb, 20 mg at 09/24/23 0620 folic [...] premix), 4,000 mg, intravenous, PRN, Salbador Howell APRN-HELIARC WELDER metOLazone (ZAROXOLYN) tablet 10 mg, 10 mg, [...] mL, 10 mL, intravenous, Q96H, Shiraz Delgado APRN-HELIARC WELDER, 10 mL at 09/25/23 1212 sodium chloride 0.9 % flush 10 mL, 10 mL, intravenous, PRN, Shiraz Delgado APRN-HELIARC WELDER, 10 mL at 09/21/23 1153 sodium chloride 0.9 % flush 10 mL, 10 mL, intravenous, PRN, Shiraz Delgado, MATERIAL HANDLER 2ND SHIFT-HELIARC WELDER, 10 mL at 09/21/23 1500 sodium chloride 0.9 % flush 10 mL, 10 mL, intravenous, Q96H, Shiraz Danny, MATERIAL HANDLER 2ND SHIFT-HELIARC WELDER, 10 mL at 09/25/23 1212 sodium chloride 0.9 % flush 10 mL, 10 mL, intravenous, PRN, Shiraz Danny, MATERIAL HANDLER 2ND SHIFT-HELIARC WELDER, 10 mL at 09/21/23 1153 sodium chloride 0.9 % flush 10 mL, 10 mL, intravenous, PRN, Shiraz Danny, MATERIAL HANDLER 2ND SHIFT-HELIARC WELDER, 10 mL at 09/21/23 1500 sodium chloride [...] mL, 2 mL, intravenous, PRN, Shiraz Danny, MATERIAL HANDLER 2ND SHIFT-HELIARC WELDER sodium chloride 0.9 % flush 3 mL, 3 mL, intravenous, Q12H, Tanner Harris MD, 3 mL at 09/25/23 1208 sodium chloride 0.9 % infusion, 10 mL/hr, intravenous, Continuous PRN, Salbador Howell APRN-HELIARC WELDER sodium chloride 0.9 % infusion, 10 mL/hr, intravenous, Continuous PRN, Salbador Howell APRN-HELIARC WELDER, Stopped at 09/25/23 0130 sodium chloride 0.9 % infusion, 10 mL/hr, intravenous, Continuous PRN, Salbador Howell APRN-HELIARC WELDER, Last Rate: 10 mL/hr at 09/25/23 0600, [...] mL, 2 mL, intravenous, Q96H, Shiraz Delgado, MATERIAL HANDLER 2ND SHIFT-HELIARC WELDER, 2 mL at 09/25/23 1213 sodium citrate 4 % (3 mL) flush 2 mL, 2 mL, intravenous, PRN, Shiraz Delgado, MATERIAL HANDLER 2ND SHIFT-HELIARC WELDER, 2 mL at 09/22/23 1151 sodium citrate 4 % (3 mL) flush 2 mL, 2 mL, intravenous, Q96H, Shiraz Delgado, MATERIAL HANDLER 2ND SHIFT-HELIARC WELDER, 2 mL at 09/25/23 1213 sodium citrate 4 % (3 mL) flush 2 mL, 2 mL, intravenous, PRN, Shiraz Delgado, MATERIAL HANDLER 2ND SHIFT-HELIARC WELDER, 2 mL at 09/22/23 1150 sodium zirconium cyclosilicate (LOKELMA) packet 10 g, 10 g, oral, Daily with lunch, Salbador Howell, MATERIAL HANDLER 2ND SHIFT-HELIARC WELDER, 10 g at 09/24/23 1200 PRNs: calcium [...] congestive heart failure with EF of 40-45%, zsda-tj-fpmodzez MR and moderate TR Anemia, on Aranesp [...] tube LILIA COX MD [facility] ANY QUESTIONS FEEL FREE TO CALL: 1. OFFICE [phone] 2. ANSWERING SERVICE:[phone] This note was created with the assistance [...] Procedure Component Value Units Date/Time Urine culture [[id number]] Collected: 09/23/232109 Specimen: Urine Updated: 09/24/23 1633 Culture NO GROWTH AT <1000 CFU/mL Blood culture [[id number]] Collected: 09/19/232341 Specimen: Blood Updated: 09/24/23 1034 Culture NO GROWTH 4 DAYS Blood culture [[id number]] Collected: 09/19/232328 Specimen: Blood Updated: 09/24/23 1031 Culture NO GROWTH 4 DAYS SARS/FLU A+B/RSV by NAAT/Molecular (M4RT Collection Tube) [[id number]] Collected: 09/19/232325 Specimen: Nasopharynx Updated: 09/20/2328 FLU [...] congestive heart failure with EF of 40-45%, wevj-[id number]-tonhscjj MR and moderate TR Anemia, on Aranesp [...] tube LILIA COX MD [facility] ANY QUESTIONS FEEL FREE TO CALL: 1. OFFICE [phone] 2. ANSWERING SERVICE:[phone] This note was created with the assistance of a speech-recognition program. Although the intention is to generate a document that actually reflects the content of the visit, no guarantees can be provided that every mistake has been identified and corrected by editing. NUTRITION ADULT INITIAL EVALUATION NUTRITION ASSESSMENT: Reason to be seen: nutrition screen for poor po intake DIRECTOR OF PATIENT CARE Patient History: Admit Diagnosis: Patient Active Problem List Diagnosis Cerumen debris on tympanic membrane of both ears Typical atrial flutter ([facility]) Coronary artery disease involving [place] coronary artery of [place] heart without angina pectoris Tachycardia induced cardiomyopathy ([facility]) Type 2 diabetes mellitus with circulatory disorder, without long-term current use of insulin (CMS-HCC) Other hyperlipidemia Paroxysmal atrial fibrillation (CMS-HCC) BRANDEE (acute kidney injury) ([facility]) Hyperkalemia Bilateral lower extremity edema Systolic and diastolic CHF, acute (CMS-HCC) Acute kidney injury ([facility]) Past Medical History: Past Medical History: Diagnosis Date Arrhythmia Hypertension Injury of back Disc L4 and L5 Obesity Systolic and diastolic CHF, acute (CMS-HCC) 09/03/2023 Visual impairment Past Surgical History: Past Surgical History: Procedure Laterality Date Cardiac catheterization 02/16/2021 Performed by Kelli Su MD at [facility] CARDIAC CATH LABS Caval Tricuspid Isthmus RFA, Carto w/ICE N/A 03/21/2021 Performed by Lurdes Weinberg MD at [facility] HR (EP) Coronary angiogram and left ventricular gram/pressure N/A 02/16/2021 Performed by Kelli Su MD at [facility] C[facility] CATH [facility]S Coronary fractional flow reserve N/A 02/16/2021 Performed by Kelli Su MD at [facility] CATH [facility]S Intravascular pressure measurement first vessel each additional vessel (fractional flow reserve) N/A 02/16/2021 Performed by Kelli Su MD at [facility] CARDIAC CATH LABS MYRINGOTOMY W/ TUBES TONSILLECTOMY Social/ Cognitive/ Economic: Brief Clinical Summary: Per MD notes, past medical history significant for paroxysmal atrial fibrillation on warfarin, type 2 diabetes mellitus on home metformin use, CHF decreased EF of 40-45%, atrial flutter ablation on 03/21/2021, hypertension, and hyperlipidemia. She was recently discharged on 09/05/2023 following treatment for an BRANDEE. She presented to [facility] on 09/19/2023 with complaints of [...] (H) 09/13/2021 Lab Results Component Value Date [id number] 09/20/2023 Lab Results Component Value Date [...] injection 50 mg 50 mg intravenous Q12H [facility] Samanta Wright MD 50 mg at 09/24/23 [...] mL 10 mL intravenous Q96H Shiraz Danny, MATERIAL HANDLER 2ND SHIFT-HELIARC WELDER sodium chloride 0.9 % flush 10 mL 10 mL intravenous PRN Shiraz Danny, MATERIAL HANDLER 2ND SHIFT-HELIARC WELDER 10 mL at 09/21/23 1153 sodium chloride 0.9 % flush 10 mL 10 mL intravenous PRN Shiraz Danny, MATERIAL HANDLER 2ND SHIFT-HELIARC WELDER 10 mL at 09/21/23 1500 sodium chloride 0.9 % flush 10 mL 10 mL intravenous Q96H Shiraz Danny, MATERIAL HANDLER 2ND SHIFT-HELIARC WELDER sodium chloride 0.9 % flush 10 mL 10 mL intravenous PRN Shiraz Danny, MATERIAL HANDLER 2ND SHIFT-HELIARC WELDER 10 mL at 09/21/23 1153 sodium chloride 0.9 % flush 10 mL 10 mL intravenous PRN Shiraz Danny, MATERIAL HANDLER 2ND SHIFT-HELIARC WELDER 10 mL at 09/21/23 1500 sodium chloride 0.9 % flush 10 mL 10 mL intravenous Q8H Shiraz Danny, MATERIAL HANDLER 2ND SHIFT-HELIARC WELDER 10 mL at 09/24/23 1217 And sodium citrate 4 % (3 mL) flush 2 mL 2 mL intravenous Q8H Shiraz Danny, MATERIAL HANDLER 2ND SHIFT-HELIARC WELDER And sodium chloride 0.9 % flush 10 mL 10 mL intravenous PRN Shiraz Danny, MATERIAL HANDLER 2ND SHIFT-HELIARC WELDER And sodium chloride 0.9 % flush 10 mL 10 mL intravenous PRN Shiraz Danny, MATERIAL HANDLER 2ND SHIFT-HELIARC WELDER 10 mL at 09/24/23 0538 And sodium citrate 4 % (3 mL) flush 2 mL 2 mL intravenous PRN Shiraz Danny, MATERIAL HANDLER 2ND SHIFT-HELIARC WELDER sodium chloride 0.9 % flush 3 mL 3 mL intravenous Q12H Tanner Harris MD 3 mL at 09/24/23 1217 sodium chloride 0.9 % infusion 10 mL/hr intravenous Continuous PRN Salbador Howell, MATERIAL HANDLER 2ND SHIFT-HELIARC WELDER sodium chloride 0.9 % infusion 10 mL/hr intravenous Continuous PRN Salbador Matteder, MATERIAL HANDLER 2ND SHIFT-HELIARC WELDER 10 mL/hr at 09/24/23 0600 Rate Verify at 09/24/23 0600 sodium chloride 0.9 % infusion 10 mL/hr intravenous Continuous PRN Salbador Matteder, MATERIAL HANDLER 2ND SHIFT-HELIARC WELDER Stopped at 09/24/23 0028 sodium chloride 0.9 % infusion 20 mL/hr intravenous Continuous PRN Tanner Harris MD sodium chloride 0.9 % infusion 250 mL hemodialysis Continuous Vidhit Miguel, DO sodium chloride 0.9 % infusion 250 mL hemodialysis Continuous Vidhit Miguel, DO sodium citrate 4 % (3 mL) flush 2 mL 2 mL intravenous Q96H Shiraz Danny, MATERIAL HANDLER 2ND SHIFT-HELIARC WELDER sodium citrate 4 % (3 mL) flush 2 mL 2 mL intravenous PRN Shiraz Danny, MATERIAL HANDLER 2ND SHIFT-HELIARC WELDER 2 mL at 09/22/23 1151 sodium citrate 4 % (3 mL) flush 2 mL 2 mL intravenous Q96H Sihraz Danny, MATERIAL HANDLER 2ND SHIFT-HELIARC WELDER sodium citrate 4 % (3 mL) flush 2 mL 2 mL intravenous PRN Shiraz Danny, MATERIAL HANDLER 2ND SHIFT-HELIARC WELDER 2 mL at 09/22/23 1150 sodium zirconium cyclosilicate (LOKELMA) packet 10 g 10 g oral Daily with lunch Salbador Howell, MATERIAL HANDLER 2ND SHIFT-HELIARC WELDER 10 g at 09/24/23 1200 Nutrition Focused Physical Findings chewing difficulty (no lower teeth); fair appetite, patient seems lose concentration in conversation. Extremities, Muscles, and Bones A. Muscle Loss - appears WNL B. Loss of Subcutaneous Fat - appears WNL Skin (per nursing flow sheets): Skin Color: Pale; [place]; Ecchymosis (09/24/23 0800) Skin Temp: Warm; Dry [...] per patient; see above for wt trends [place] Body Weight: 57kg Percent [place] Body Weight: 225% Weight Changes: down 3.8kg from admit; wt gain DIRECTOR OF PATIENT CARE Body Mass Index: Body mass index is 46.96 kg/m . BMI Category: Obese class 3 (> or = 40.00) Comparative Standards: Estimated Energy Needs: 8327-6440 kcals daily. Method and weight used: 28-32 kcal/kg IBW Estimated Protein Needs: 68-86 grams daily. Method and weight used: 1.2-1.5g protein/kg IBW Estimated Fluid Needs: 4383-3230 ml daily. Method weight used: 28-32 ml/kg IBW Comments: acute dialysis needs Malnutrition Status: Malnutrition Present: No NUTRITION DIAGNOSIS: Intake Diagnosis: Inadequate oral intake (NI 2.1) related to chewing difficulty as evidenced by fair intake at least 1 week DIRECTOR OF PATIENT CARE. NUTRITION INTERVENTIONS: Meals & snacks: encouraged trying [...] PF 4 AB Hemodialysis per Nephrology On [facility] On proamatine Steroid taper in place, stop [...] Procedure Component Value Units Date/Time Urine culture [[id number]] Resulted: 09/23/232206 Specimen: Urine Updated: 09/23/232214 Blood culture [[id number]] Collected: 09/19/232341 Specimen: Blood Updated: 09/23/23 103 Culture NO GROWTH 3 DAYS Blood culture [[id number]] Collected: 09/19/239 Specimen: Blood Updated: 09/23/23 103 Culture NO GROWTH 3 DAYS SARS/FLU A+B/RSV by NAAT/Molecular (M4RT Collection Tube) [[id number]] Collected: 09/19/23 2326 Specimen: Nasopharynx Updated: 09/20/23 [...] congestive heart failure with EF of 40-45%, ttas-aj-lwupurny MR and moderate TR Anemia, on Aranesp [...] tube LILIA COX MD [facility] ANY QUESTIONS FEEL FREE TO CALL: 1. OFFICE [phone] 2. ANSWERING SERVICE:[phone] This note was created with the assistance [...] Castrejon Age - 68 [facility] 1955 [id number] Date of Admission - 09/20/2023 6:17 AM [...] from the original note were not included. [facility] Physicians Critical Care Update Note Name: Harris [...] to monitor in ICU. GREER LEGGETT PA-C [facility] Critical Care Please feel free to contact [...] in outpatient dialysis to be arranged at [facility] before discharge Continue Renvela Continue low potassium [...] EF 40-45% with left ventricular hypertrophy noted. Qwdt-fa-htkneblc mitral regurgitation noted. Moderate tricuspid regurgitation noted. [...] FERRITIN 40 09/20/2023 Please contact me at [phone] (Office) or [phone] (Answering service) with any questions. Dede Rivera DO [facility] This note was created with the assistance of a speech-recognition program. Although the intention is to generate a document that actually reflects the content of the visit, no guarantees can be provided that every mistake has been identified and corrected by editing. Images from the original note were not included. [facility] Progress Note Name: [...] care discussed with Dr. Albertina LEGGETT PA-C [facility] Please feel free to [...] Procedure Component Value Units Date/Time Blood culture [[id number]] Collected: 09/19/23 234 Specimen: Blood Updated: 09/21/23 1034 Culture NO GROWTH 1 DAY Blood culture [[id number]] Collected: 09/19/232328 Specimen: Blood Updated: 09/21/23 1031 Culture NO GROWTH 1 DAY SARS/FLU A+B/RSV by NAAT/Molecular (M4RT Collection Tube) [[id number]] Collected: 09/19/232325 Specimen: Nasopharynx Updated: 09/20/23 0029 [...] titration of care by a Critical Care Small Lot Operator or CHALINO. Failure to do so may [...] 1:04 PM Result Value Ref Range Free [place] 24.92 (H) 0.33 - 1.94 [...] Protein Urine Random 11,440 (H) <120 mg/L U/Pro/[employer] Helicopter Pilot Ratio Calc 16.80 (H) <0.2 Urinalysis Collection [...] Procedure Component Value Units Date/Time Blood culture [[id number]] Collected: 09/19/23 234 Specimen: Blood Updated: 09/20/232233 Culture NO GROWTH <24 HRS Blood culture [[id number]] Collected: 09/19/232328 Specimen: Blood Updated: 09/20/232230 Culture NO GROWTH <24 HRS SARS/FLU A+B/RSV by NAAT/Molecular (M4RT Collection Tube) [[id number]] Collected: 09/19/232325 Specimen: Nasopharynx Updated: 09/20/23 0029 [...] EF 40-45% with left ventricular hypertrophy noted. Bkdv-ql-dncqblyk mitral regurgitation noted. Moderate tricuspid regurgitation noted. [...] FERRITIN 40 09/20/2023 Please contact me at [phone] (Office) or [phone] (Answering service) with any questions. Dede Rivera DO [facility] This note was created with the assistance [...] issues Pily Lay MD Urology Resident, PGY-[facility] 10-05-2023 Miscellaneous Notes Problem: Pain Goal: Patient goal is pain score less than 4, able to rest, and participant in treatment plan as appropriate Description: INTERVENTIONS: 1. Encourage patient or legal promotions representative to report early pain and ask [...] per policy 9. Teach patient or legal promotions representative interventions for comforting Outcome: Progressing Note: [...] at the bedside 7. Instruct patient/ patient promotions representative about use of safety devices 8. Include patient/ patient promotions representative in decisions related to safety Outcome: Progressing Note: Evaluation of progress towards goal: pt will remain injury free this shift. Problem: Knowledge Deficit Goal: Patient/patient promotions representative demonstrates understanding of disease process, treatment [...] 1200 BLS to home with family and [facility]. CRF sent to [facility] via [employer]. Patient and family have continued to decline SNF or home DME arrangements. BLS cert complete in discharge packet. Care Navigation will continue to follow for 10/05/23 8:42 AM Problem: Pain Goal: Patient goal is pain score less than 4, able to rest, and participant in treatment plan as appropriate Description: INTERVENTIONS: 1. Encourage patient or legal promotions representative to report early pain and ask [...] per policy 9. Teach patient or legal promotions representative interventions for comforting Outcome: Progressing Note: [...] at the bedside 7. Instruct patient/ patient promotions representative about use of safety devices 8. Include patient/ patient promotions representative in decisions related to safety Outcome: [...] hygiene technique 7. Identify and instruct patient/patient promotions representative in use of appropriate isolation precautions for identified infection/symptoms 8. Provide and discuss with patient/patient promotions representative on educational MDRO sheet 9. Encourage and monitor nutritional status daily and consult consulting solution manager if indicated 10. Implement neutropenic guidelines as [...] be free from fall Description: Interventions: 1. [place] to environment 2. Hourly rounds addressing the [...] non-skid footwear 11. Teach patient and patient promotions representative to maintain environment for safety and [...] (cane, walker) within reach 19. Request patient promotions representative bring adaptive equipment/mobility aids from home or obtain and provide as needed 20. Consult pharmacy regarding effects of med's affecting mobility, cognition, and alternatives 21. Obtain physician order for PT if risk factors associated with mobility are present 22. Obtain physician order for OT as appropriate 23. Utilize diversional activities 24. Educate patient and patient promotions representative how to maintain a safe environment during visitation times (notify nurse prior to leaving bedside) 25. Consider appropriateness of medical or non-medical information specialist 26. Set up voiding schedule as appropriate [...] Outcome: Progressing Problem: Knowledge Deficit Goal: Patient/patient promotions representative demonstrates understanding of disease process, treatment [...] supplement as ordered 13. Collaborate with clinical consulting solution manager 14. Include patient/ patient's promotions representative in decisions related to nutrition Outcome: [...] likely after midnight. Spoke with Mauricio garay [facility] [place]. Rescheduled with call back. BLS transport via [facility] to patient's home 10/05/23 at 12:00pm. Spoke with Mauricio garay [facility] [place]. Occupational Therapy Treatment Discharge Recommendations OT Recommendations : Longterm Facility SNF/ECF Comments: pt is a very [...] belt, connie gipson RW, external female catheter Telemetry/Department Chair: Yes Oxygen Used: room air Other: high [...] Patient will perform bed mobility with Modified [place] Dates: Start: 10/02/23 Expected End: 10/30/23 Description: Goal Description: Disciplines: OT Outcomes Date/Time User Outcome 10/04/23 1352 LOCO Smith Not Progressing Goal Note filed on 10/04/23 135 by LOCO Smith Evaluation of progress towards goal: Problem: Functional Mobility Dates: Start: 10/02/23 Disciplines: OT Goal: Patient will perform functional mobility with Modified [place] Dates: Start: 10/02/23 Expected End: 10/30/23 Description: [...] Goal: Patient will perform transfers with Modified [place] Dates: Start: 10/02/23 Expected End: 10/30/23 Description: Goal Description: Disciplines: OT Outcomes Date/Time User Outcome 10/04/23 1352 LOCO Smith Not Progressing Goal Note filed on 10/04/23 135 by LOCO Smith Evaluation of progress towards goal: Occupational Therapy Care Plan (Resolved) There are no resolved problems. Principal Problem: Acute kidney injury ([facility]) Associated attestation - Connie Pablo OTR/L - 10/04/2023 2:19 PM EST I have reviewed and agree with this note and education documentation for this visit. Physical Therapy Treatment Discharge Recommendations PT Recommendations: Longterm Facility SNF/ECF Comments: pt is a very [...] 6 Clicks: Basic Mobility Raw Score: 9 [facility] G Code Modifier: CL PT Treatment/Interventions: Functional [...] belt, connie gipson, RW, external female catheter Telemetry/Department Chair: Yes Other: high fall risk Pain Assessment [...] Date/Time User Outcome 10/04/23 1252 Malorie Acosta, DIRECTOR OF PATIENT CARE Progressing 10/02/23 1507 Domi Love, PT Progressing Goal Note filed on 10/02/23 1507 by Domi Love, PT Evaluation of progress towards goal: Problem: Bed Mobility Dates: Start: 10/01/23 Disciplines: PT Goal: Patient will perform bed mobility with Contact Guard Dates: Start: 10/01/23 Expected End: 10/15/23 Description: Goal Description: Disciplines: PT Outcomes Date/Time User Outcome 10/04/23 1252 Malorie Acosta, DIRECTOR OF PATIENT CARE Progressing 10/02/23 1507 Domi Love, PT Not [...] Date/Time User Outcome 10/04/23 1252 Malorie Acosta, DIRECTOR OF PATIENT CARE Progressing 10/02/23 1507 Domi Love, PT Progressing Goal Note filed on 10/02/23 1507 by Domi Love PT Evaluation of progress towards goal: Problem: Standing Balance Dates: Start: 10/01/23 Disciplines: PT Goal: Improve balance to fair Dates: Start: 10/01/23 Expected End: 10/15/23 Description: Static Dynamic- with support of rw Disciplines: PT Outcomes Date/Time User Outcome 10/04/23 1252 Malorie Acosta, DIRECTOR OF PATIENT CARE Progressing Problem: Strength Dates: Start: 10/01/23 Disciplines: [...] resolved problems. Principal Problem: Acute kidney injury ([facility]) Associated attestation - Domi Love PT - 10/04/2023 3:42 PM EST I have reviewed and agree with this note and education documentation for this visit. DISCHARGE PLANNING NOTE Follow-up Discharge Planning Progress Note Per RN during discharge transition rounds, barriers to discharge are: EP cardiology consult Discharge Plan: Home with family and [address] health. Discussed with patient, spouse, [...] Description: INTERVENTIONS: 1. Encourage patient or legal promotions representative to report early pain and ask [...] per policy 9. Teach patient or legal promotions representative interventions for comforting Outcome: Progressing Note: [...] at the bedside 7. Instruct patient/ patient promotions representative about use of safety devices 8. Include patient/ patient promotions representative in decisions related to safety Outcome: [...] hygiene technique 7. Identify and instruct patient/patient promotions representative in use of appropriate isolation precautions for identified infection/symptoms 8. Provide and discuss with patient/patient promotions representative on educational MDRO sheet 9. Encourage and monitor nutritional status daily and consult consulting solution manager if indicated 10. Implement neutropenic guidelines as [...] Score of =/> 25 or indicated by [facility] Assessment Goal: Patient should be free from fall Description: Interventions: 1. [place] to environment 2. Hourly rounds addressing the [...] non-skid footwear 11. Teach patient and patient promotions representative to maintain environment for safety and [...] (cane, walker) within reach 19. Request patient promotions representative bring adaptive equipment/mobility aids from home or obtain and provide as needed 20. Consult pharmacy regarding effects of med's affecting mobility, cognition, and alternatives 21. Obtain physician order for PT if risk factors associated with mobility are present 22. Obtain physician order for OT as appropriate 23. Utilize diversional activities 24. Educate patient and patient promotions representative how to maintain a safe environment during visitation times (notify nurse prior to leaving bedside) 25. Consider appropriateness of medical or non-medical information specialist 26. Set up voiding schedule as appropriate (every 2 hours) Outcome: Progressing Note: Evaluation of progress towards goal: fall precautions maintained Problem: Pain Goal: Patient goal is pain score less than 4, able to rest, and participant in treatment plan as appropriate Description: INTERVENTIONS: 1. Encourage patient or legal promotions representative to report early pain and ask [...] per policy 9. Teach patient or legal promotions representative interventions for comforting Outcome: Progressing Note: [...] at the bedside 7. Instruct patient/ patient promotions representative about use of safety devices 8. Include patient/ patient promotions representative in decisions related to safety Outcome: [...] hygiene technique 7. Identify and instruct patient/patient promotions representative in use of appropriate isolation precautions for identified infection/symptoms 8. Provide and discuss with patient/patient promotions representative on educational MDRO sheet 9. Encourage and monitor nutritional status daily and consult consulting solution manager if indicated 10. Implement neutropenic guidelines as needed 11. Review exposure to history of communicable disease and recent travel history on admission 12. Encourage annual influenza vaccine 13. Encourage pneumonia vaccine Outcome: Progressing Note: Evaluation of progress towards goal: Patient remains free from signs and symptoms of infection, patient is afebrile, WBC within normal limits. Problem: Knowledge Deficit Goal: Patient/patient promotions representative demonstrates understanding of disease process, treatment [...] discharge planning process 5. Communicate referral to family life educator as appropriate 6. Communicate referral to consulting solution manager as appropriate 7. Collaborate with case management/social group worker for discharge needs Outcome: Progressing Note: [...] supplement as ordered 13. Collaborate with clinical consulting solution manager 14. Include patient/ patient's promotions representative in decisions related to nutrition Outcome: [...] Score of =/> 25 or indicated by [facility] Assessment Goal: Patient should be free from fall Description: Interventions: 1. [place] to environment 2. Hourly rounds addressing the [...] non-skid footwear 11. Teach patient and patient promotions representative to maintain environment for safety and [...] (cane, walker) within reach 19. Request patient promotions representative bring adaptive equipment/mobility aids from home or obtain and provide as needed 20. Consult pharmacy regarding effects of med's affecting mobility, cognition, and alternatives 21. Obtain physician order for PT if risk factors associated with mobility are present 22. Obtain physician order for OT as appropriate 23. Utilize diversional activities 24. Educate patient and patient promotions representative how to maintain a safe environment during visitation times (notify nurse prior to leaving bedside) 25. Consider appropriateness of medical or non-medical information specialist 26. Set up voiding schedule as appropriate [...] Description: INTERVENTIONS: 1. Encourage patient or legal promotions representative to report early pain and ask [...] per policy 9. Teach patient or legal promotions representative interventions for comforting Outcome: Progressing Note: [...] at the bedside 7. Instruct patient/ patient promotions representative about use of safety devices 8. Include patient/ patient promotions representative in decisions related to safety Outcome: [...] hygiene technique 7. Identify and instruct patient/patient promotions representative in use of appropriate isolation precautions for identified infection/symptoms 8. Provide and discuss with patient/patient promotions representative on educational MDRO sheet 9. Encourage and monitor nutritional status daily and consult consulting solution manager if indicated 10. Implement neutropenic guidelines as [...] be free from fall Description: Interventions: 1. [place] to environment 2. Hourly rounds addressing the [...] non-skid footwear 11. Teach patient and patient promotions representative to maintain environment for safety and [...] (cane, walker) within reach 19. Request patient promotions representative bring adaptive equipment/mobility aids from home or obtain and provide as needed 20. Consult pharmacy regarding effects of med's affecting mobility, cognition, and alternatives 21. Obtain physician order for PT if risk factors associated with mobility are present 22. Obtain physician order for OT as appropriate 23. Utilize diversional activities 24. Educate patient and patient promotions representative how to maintain a safe environment during visitation times (notify nurse prior to leaving bedside) 25. Consider appropriateness of medical or non-medical information specialist 26. Set up voiding schedule as appropriate [...] plan is in place for home with [id number]. Patient has been unable to sit at the bedside or ambulate. PT/OT recommending SNF. Discussed discharge plans again with patient, spouse, and son at the bedside. Spouse reports patient can walk and will have support from family at home. However, family members all work time study technologist and reiterated that patient has not been [...] commode, and hospital bed. Referral initiated to [facility]. She will require BLS transport. Confirmed with Dr. Cox that patient does not need outpatient hemodialysis. Care Navigation will continue to follow for any discharge needs. 10/02/23 4:21 PM Physical Therapy Treatment Discharge Recommendations PT Recommendations: Longterm Facility SNF/ECF Comments: Pt is a very [...] early mobility-pass Equipment: gait belt, leandro Berger Telemetry/Department Chair: Yes Oxygen Used: 3L Other: high fall [...] Disciplines: PT Outcomes Date/Time User Outcome 10/02/23 0844 Domi Love, PT Progressing Goal Note filed on 10/02/23 1506 by Domi Love PT Evaluation of progress [...] resolved problems. Principal Problem: Acute kidney injury ([facility]) Occupational Therapy Evaluation Discharge Recommendations OT Recommendations : Longterm Facility SNF/ECF Comments: Pt is a high [...] resulting from prolonged hospitalization. Pt presented to [facility] ED via EMS with general weakness. Family [...] 02/16/2021 Performed by Kelli Su MD at [facility] CARDIAC CATH LABS Caval Tricuspid Isthmus RFA, Carto w/ICE N/A 03/21/2021 Performed by Lurdes Weinberg MD at [facility] (EP) Coronary angiogram and left ventricular gram/pressure N/A 02/16/2021 Performed by Kelli Su MD at [facility] CARDIAC CATH LABS Coronary fractional flow reserve N/A 02/16/2021 Performed by Kelli Su MD at [facility] CARDI[facility] CATH LABS Intravascular pressure measurement first vessel each additional vessel (fractional flow reserve) N/A 02/16/2021 Performed by Kelli Su MD at [facility] CARDIAC CATH LABS MYRINGOTOMY W/ TUBES TONSILLECTOMY [...] early mobility-pass Equipment: gait belt, CONNIE Stedy Telemetry/Department Chair: Yes Oxygen Used: 3L Other: high fall [...] Patient will perform bed mobility with Modified [place] Dates: Start: 10/02/23 Expected End: 10/30/23 Description: Goal Description: Disciplines: OT Problem: Functional Mobility Dates: Start: 10/02/23 Disciplines: OT Goal: Patient will perform functional mobility with Modified [place] Dates: Start: 10/02/23 Expected End: 10/30/23 Description: [...] Goal: Patient will perform transfers with Modified [place] Dates: Start: 10/02/23 Expected End: 10/30/23 Description: Goal Description: Disciplines: OT Occupational Therapy Care Plan (Resolved) There are no resolved problems. Principal Problem: Acute kidney injury ([facility]) Problem: Pain Goal: Patient goal is pain score less than 4, able to rest, and participant in treatment plan as appropriate Description: INTERVENTIONS: 1. Encourage patient or legal promotions representative to report early pain and ask [...] per policy 9. Teach patient or legal promotions representative interventions for comforting Outcome: Progressing Note: [...] at the bedside 7. Instruct patient/ patient promotions representative about use of safety devices 8. Include patient/ patient promotions representative in decisions related to safety Outcome: [...] hygiene technique 7. Identify and instruct patient/patient promotions representative in use of appropriate isolation precautions for identified infection/symptoms 8. Provide and discuss with patient/patient promotions representative on educational MDRO sheet 9. Encourage and monitor nutritional status daily and consult consulting solution manager if indicated 10. Implement neutropenic guidelines as needed 11. Review exposure to history of communicable disease and recent travel history on admission 12. Encourage annual influenza vaccine 13. Encourage pneumonia vaccine Outcome: Progressing Note: Evaluation of progress towards goal: Patient shows no s/s of infection at this time. Problem: Knowledge Deficit Goal: Patient/patient promotions representative demonstrates understanding of disease process, treatment [...] discharge planning process 5. Communicate referral to family life educator as appropriate 6. Communicate referral to consulting solution manager as appropriate 7. Collaborate with case management/social group worker for discharge needs Outcome: Progressing Note: [...] supplement as ordered 13. Collaborate with clinical consulting solution manager 14. Include patient/ patient's promotions representative in decisions related to nutrition Outcome: [...] be free from fall Description: Interventions: 1. [place] to environment 2. Hourly rounds addressing the [...] non-skid footwear 11. Teach patient and patient promotions representative to maintain environment for safety and [...] (cane, walker) within reach 19. Request patient promotions representative bring adaptive equipment/mobility aids from home or obtain and provide as needed 20. Consult pharmacy regarding effects of med's affecting mobility, cognition, and alternatives 21. Obtain physician order for PT if risk factors associated with mobility are present 22. Obtain physician order for OT as appropriate 23. Utilize diversional activities 24. Educate patient and patient promotions representative how to maintain a safe environment during visitation times (notify nurse prior to leaving bedside) 25. Consider appropriateness of medical or non-medical information specialist 26. Set up voiding schedule as appropriate [...] Description: INTERVENTIONS: 1. Encourage patient or legal promotions representative to report early pain and ask [...] per policy 9. Teach patient or legal promotions representative interventions for comforting Note: Evaluation of [...] at the bedside 7. Instruct patient/ patient promotions representative about use of safety devices 8. Include patient/ patient promotions representative in decisions related to safety Note: [...] hygiene technique 7. Identify and instruct patient/patient promotions representative in use of appropriate isolation precautions for identified infection/symptoms 8. Provide and discuss with patient/patient promotions representative on educational MDRO sheet 9. Encourage and monitor nutritional status daily and consult consulting solution manager if indicated 10. Implement neutropenic guidelines as [...] until DC. Problem: Knowledge Deficit Goal: Patient/patient promotions representative demonstrates understanding of disease process, treatment [...] Physical Therapy Evaluation Discharge Recommendations PT Recommendations: Longterm Facility SNF/ECF Comments: Pt is a very [...] decline resulting from hospitalization. Pt presented to [facility] ED via EMS with general weakness. Family reported they called EMS after pt became weak and she lowered herself to the floor. Pt transferred to [facility]. Pt was just discharged from the hospital [...] L5 Obesity Systolic and diastolic CHF, acute ([facility]) 09/03/2023 Visual impairment Past Surgical History: Procedure Laterality Date Cardiac catheterization 02/16/2021 Performed by Kelli Su MD at [facility] CARDIAC CATH LABS Caval Tricuspid Isthmus RFA, Carto w/ICE N/A 03/21/2021 Performed by Lurdes Weinberg MD at [facility] (EP) Coronary angiogram and left ventricular gram/pressure N/A 02/16/2021 Performed by Kelli Su MD at [facility] CARDIAC CATH LABS Coronary fractional flow reserve N/A 02/16/2021 Performed by Kelli Su MD at [facility] CARDIAC CATH LABS Intravascular pressure measurement first vessel each additional vessel (fractional flow reserve) N/A 02/16/2021 Performed by Kelli Su MD at [facility] CARDIAC CATH LABS MYRINGOTOMY W/ TUBES TONSILLECTOMY [...] 6 Clicks: Basic Mobility Raw Score: 9 [facility] G Code Modifier: CL PT Treatment/Interventions: Functional [...] Activity: early mobility-pass Equipment: gait belt, rw Telemetry/Department Chair: Yes Oxygen Used: 3L Other: high fall [...] resolved problems. Principal Problem: Acute kidney injury ([facility]) DISCHARGE PLANNING NOTE Referral to [facility] ([place] P# [phone] ; F# [phone]) , [address] (P# ; F# ); [place] (P# [phone] ; F# [phone]) , [facility] ([place]- P# ; F# ) ([place], [place] P# ; F#) DISCHARGE PLANNING NOTE Per RN during discharge transition rounds, barriers to discharge are: PT/OT eval. IV fluids/diuretics, 3L O2, Das[place] Discharge Plan: Home with home health care and support from family. List provided to patient at bedside. Mobile Application Developer will continue to follow for any discharge needs. - Ashley Park RN 10/01/23 1:49 PM UPDATE: Spoke with patient at bedside, per her request- tasked [facility] to send referrals to [facility], [address] & [facility]. - Ashley Park RN 10/01/23 2:15 PM Problem: Pain Goal: Patient goal is pain score less than 4, able to rest, and participant in treatment plan as appropriate Description: INTERVENTIONS: 1. Encourage patient or legal promotions representative to report early pain and ask [...] per policy 9. Teach patient or legal promotions representative interventions for comforting Outcome: Progressing Note: Evaluation of progress towards goal: Patient denies pain at this time, will continue to monitor and reassess pain with hourly rounding Problem: Pain Goal: Patient goal is pain score less than 4, able to rest, and participant in treatment plan as appropriate Description: INTERVENTIONS: 1. Encourage patient or legal promotions representative to report early pain and ask [...] per policy 9. Teach patient or legal promotions representative interventions for comforting Outcome: Progressing Note: [...] at the bedside 7. Instruct patient/ patient promotions representative about use of safety devices 8. Include patient/ patient promotions representative in decisions related to safety Outcome: [...] hygiene technique 7. Identify and instruct patient/patient promotions representative in use of appropriate isolation precautions for identified infection/symptoms 8. Provide and discuss with patient/patient promotions representative on educational MDRO sheet 9. Encourage and monitor nutritional status daily and consult consulting solution manager if indicated 10. Implement neutropenic guidelines as needed 11. Review exposure to history of communicable disease and recent travel history on admission 12. Encourage annual influenza vaccine 13. Encourage pneumonia vaccine Outcome: Progressing Note: Evaluation of progress towards goal: Patient will remain infection free during hospitalization. Standard precautions in place. Problem: Knowledge Deficit Goal: Patient/patient promotions representative demonstrates understanding of disease process, treatment [...] administered as ordered. Spoke to Dr. Valerio [facility]. Updated on events. [facility] will assume care for patient tomorrow morning at 07:00 AM. Anel Lara PA-C [facility] Critical Care 09/29/2023 Anel Lara PA-C 09/29/23 1724 Problem: Pain Goal: Patient goal is pain score less than 4, able to rest, and participant in treatment plan as appropriate Description: INTERVENTIONS: 1. Encourage patient or legal promotions representative to report early pain and ask [...] per policy 9. Teach patient or legal promotions representative interventions for comforting Outcome: Progressing Note: [...] at the bedside 7. Instruct patient/ patient promotions representative about use of safety devices 8. Include patient/ patient promotions representative in decisions related to safety Outcome: Progressing Note: Evaluation of progress towards goal: Pt has remained free of falls and safety measures continue to be met. Will continue to monitor Problem: Knowledge Deficit Goal: Patient/patient promotions representative demonstrates understanding of disease process, treatment [...] is requested, please feel free to contact engineering writer. Problem: Pain Goal: Patient goal is pain score less than 4, able to rest, and participant in treatment plan as appropriate Description: INTERVENTIONS: 1. Encourage patient or legal promotions representative to report early pain and ask [...] per policy 9. Teach patient or legal promotions representative interventions for comforting Outcome: Progressing Note: [...] at the bedside 7. Instruct patient/ patient promotions representative about use of safety devices 8. Include patient/ patient promotions representative in decisions related to safety Outcome: [...] be free from fall Description: Interventions: 1. [place] to environment 2. Hourly rounds addressing the [...] non-skid footwear 11. Teach patient and patient promotions representative to maintain environment for safety and [...] (cane, walker) within reach 19. Request patient promotions representative bring adaptive equipment/mobility aids from home or obtain and provide as needed 20. Consult pharmacy regarding effects of med's affecting mobility, cognition, and alternatives 21. Obtain physician order for PT if risk factors associated with mobility are present 22. Obtain physician order for OT as appropriate 23. Utilize diversional activities 24. Educate patient and patient promotions representative how to maintain a safe environment during visitation times (notify nurse prior to leaving bedside) 25. Consider appropriateness of medical or non-medical information specialist 26. Set up voiding schedule as appropriate [...] Description: INTERVENTIONS: 1. Encourage patient or legal promotions representative to report early pain and ask [...] per policy 9. Teach patient or legal promotions representative interventions for comforting Outcome: Progressing Note: [...] at the bedside 7. Instruct patient/ patient promotions representative about use of safety devices 8. Include patient/ patient promotions representative in decisions related to safety Outcome: Progressing Note: Evaluation of progress towards goal: Pt has remained free of falls and safety measures continue to be met. Will continue to monitor Problem: Knowledge Deficit Goal: Patient/patient promotions representative demonstrates understanding of disease process, treatment [...] Score of =/> 25 or indicated by [facility] Assessment Goal: Patient should be free from fall Description: Interventions: 1. [place] to environment 2. Hourly rounds addressing the [...] non-skid footwear 11. Teach patient and patient promotions representative to maintain environment for safety and [...] (cane, walker) within reach 19. Request patient promotions representative bring adaptive equipment/mobility aids from home or obtain and provide as needed 20. Consult pharmacy regarding effects of med's affecting mobility, cognition, and alternatives 21. Obtain physician order for PT if risk factors associated with mobility are present 22. Obtain physician order for OT as appropriate 23. Utilize diversional activities 24. Educate patient and patient promotions representative how to maintain a safe environment during visitation times (notify nurse prior to leaving bedside) 25. Consider appropriateness of medical or non-medical information specialist 26. Set up voiding schedule as appropriate [...] is requested, please feel free to contact engineering writer. Problem: Pain Goal: Patient goal is pain score less than 4, able to rest, and participant in treatment plan as appropriate Description: INTERVENTIONS: 1. Encourage patient or legal promotions representative to report early pain and ask [...] per policy 9. Teach patient or legal promotions representative interventions for comforting Outcome: Progressing Note: [...] at the bedside 7. Instruct patient/ patient promotions representative about use of safety devices 8. Include patient/ patient promotions representative in decisions related to safety Outcome: [...] hygiene technique 7. Identify and instruct patient/patient promotions representative in use of appropriate isolation precautions for identified infection/symptoms 8. Provide and discuss with patient/patient promotions representative on educational MDRO sheet 9. Encourage and monitor nutritional status daily and consult consulting solution manager if indicated 10. Implement neutropenic guidelines as [...] be free from fall Description: Interventions: 1. [place] to environment 2. Hourly rounds addressing the [...] non-skid footwear 11. Teach patient and patient promotions representative to maintain environment for safety and [...] (cane, walker) within reach 19. Request patient promotions representative bring adaptive equipment/mobility aids from home or obtain and provide as needed 20. Consult pharmacy regarding effects of med's affecting mobility, cognition, and alternatives 21. Obtain physician order for PT if risk factors associated with mobility are present 22. Obtain physician order for OT as appropriate 23. Utilize diversional activities 24. Educate patient and patient promotions representative how to maintain a safe environment during visitation times (notify nurse prior to leaving bedside) 25. Consider appropriateness of medical or non-medical information specialist 26. Set up voiding schedule as appropriate [...] [place]. We will take her off the [facility] hospitalist list for now, please call [facility] when patient is ready to transfer out of ICU. Physical Therapy CANCEL - Deferred (Hold PT eval per Dianne RN and early mobility screen fail, pt is on vasopressors. PT will continue to follow.) Occupational Therapy (P) CANCEL - Deferred (Per RN Dianen pt on pressors, hold OT evaluation.) Problem: Pain Goal: Patient goal is pain score less than 4, able to rest, and participant in treatment plan as appropriate Description: INTERVENTIONS: 1. Encourage patient or legal promotions representative to report early pain and ask [...] per policy 9. Teach patient or legal promotions representative interventions for comforting Outcome: Progressing Note: [...] at the bedside 7. Instruct patient/ patient promotions representative about use of safety devices 8. Include patient/ patient promotions representative in decisions related to safety Outcome: [...] hygiene technique 7. Identify and instruct patient/patient promotions representative in use of appropriate isolation precautions for identified infection/symptoms 8. Provide and discuss with patient/patient promotions representative on educational MDRO sheet 9. Encourage and monitor nutritional status daily and consult consulting solution manager if indicated 10. Implement neutropenic guidelines as needed 11. Review exposure to history of communicable disease and recent travel history on admission 12. Encourage annual influenza vaccine 13. Encourage pneumonia vaccine Outcome: Progressing Note: Evaluation of progress towards goal: Monitoring s/s, labs and vitals for indications of infection Problem: Knowledge Deficit Goal: Patient/patient promotions representative demonstrates understanding of disease process, treatment [...] Description: INTERVENTIONS: 1. Encourage patient or legal promotions representative to report early pain and ask [...] per policy 9. Teach patient or legal promotions representative interventions for comforting Outcome: Progressing Note: [...] at the bedside 7. Instruct patient/ patient promotions representative about use of safety devices 8. Include patient/ patient promotions representative in decisions related to safety Outcome: [...] hygiene technique 7. Identify and instruct patient/patient promotions representative in use of appropriate isolation precautions for identified infection/symptoms 8. Provide and discuss with patient/patient promotions representative on educational MDRO sheet 9. Encourage and monitor nutritional status daily and consult consulting solution manager if indicated 10. Implement neutropenic guidelines as needed 11. Review exposure to history of communicable disease and recent travel history on admission 12. Encourage annual influenza vaccine 13. Encourage pneumonia vaccine Outcome: Progressing Note: Evaluation of progress towards goal: Monitoring s/s, labs and vitals for indications of infection Problem: Knowledge Deficit Goal: Patient/patient promotions representative demonstrates understanding of disease process, treatment [...] Description: INTERVENTIONS: 1. Encourage patient or legal promotions representative to report early pain and ask [...] per policy 9. Teach patient or legal promotions representative interventions for comforting Outcome: Progressing Note: [...] at the bedside 7. Instruct patient/ patient promotions representative about use of safety devices 8. Include patient/ patient promotions representative in decisions related to safety Outcome: [...] hygiene technique 7. Identify and instruct patient/patient promotions representative in use of appropriate isolation precautions for identified infection/symptoms 8. Provide and discuss with patient/patient promotions representative on educational MDRO sheet 9. Encourage and monitor nutritional status daily and consult consulting solution manager if indicated 10. Implement neutropenic guidelines as [...] no growth. Problem: Knowledge Deficit Goal: Patient/patient promotions representative demonstrates understanding of disease process, treatment [...] bedtime with Humalog sliding scale coverage ordered. LQ=059 mg/dl with coverage administered per sliding scale. Goal: Patient's discharge needs are met Description: Patient's goal is: INTERVENTIONS 1. Assess patient for self-management skills 2. Encourage participation in diabetes management 3. Identify potential discharge barriers on admission and throughout hospital stay 4. Involve patient/S.O. in discharge planning process 5. Communicate referral to family life educator as appropriate 6. Communicate referral to consulting solution manager as appropriate 7. Collaborate with case management/social group worker for discharge needs Outcome: Progressing Note: [...] supplement as ordered 13. Collaborate with clinical consulting solution manager 14. Include patient/ patient's promotions representative in decisions related to nutrition Outcome: [...] be free from fall Description: Interventions: 1. [place] to environment 2. Hourly rounds addressing the [...] non-skid footwear 11. Teach patient and patient promotions representative to maintain environment for safety and [...] (cane, walker) within reach 19. Request patient promotions representative bring adaptive equipment/mobility aids from home or obtain and provide as needed 20. Consult pharmacy regarding effects of med's affecting mobility, cognition, and alternatives 21. Obtain physician order for PT if risk factors associated with mobility are present 22. Obtain physician order for OT as appropriate 23. Utilize diversional activities 24. Educate patient and patient promotions representative how to maintain a safe environment during visitation times (notify nurse prior to leaving bedside) 25. Consider appropriateness of medical or non-medical information specialist 26. Set up voiding schedule as appropriate (every 2 hours) Outcome: Progressing Note: Evaluation of progress towards goal: Pt free from fall with hourly rounding continued & maintained. 4 Ps addressed. Respiratory Therapy Clinical Practice Guidelines Consult Patient Active Problem List Diagnosis Cerumen debris on tympanic membrane of both ears Typical atrial flutter [place] [place] Coronary artery disease involving [place] coronary artery of [place] heart without angina pectoris Tachycardia induced cardiomyopathy ([facility] [place]) Type 2 diabetes mellitus with circulatory disorder, without long-term current use of insulin ([facility] [place]) Other hyperlipidemia Paroxysmal atrial fibrillation ([facility] [place]) BRANDEE (acute kidney injury) ([facility] [place]) Hyperkalemia Bilateral lower extremity edema Systolic and diastolic CHF, acute ([facility] [place]) Acute kidney injury ([facility] [place]) Last Chest XRAY: Reviewed Pulmonary History: reviewed [...] Description: INTERVENTIONS: 1. Encourage patient or legal promotions representative to report early pain and ask [...] per policy 9. Teach patient or legal promotions representative interventions for comforting Outcome: Progressing Note: [...] at the bedside 7. Instruct patient/ patient promotions representative about use of safety devices 8. Include patient/ patient promotions representative in decisions related to safety Outcome: [...] hygiene technique 7. Identify and instruct patient/patient promotions representative in use of appropriate isolation precautions for identified infection/symptoms 8. Provide and discuss with patient/patient promotions representative on educational MDRO sheet 9. Encourage and monitor nutritional status daily and consult consulting solution manager if indicated 10. Implement neutropenic guidelines as needed 11. Review exposure to history of communicable disease and recent travel history on admission 12. Encourage annual influenza vaccine 13. Encourage pneumonia vaccine Outcome: Progressing Note: Evaluation of progress towards goal: Pt afebrile. WBCs 10.1. Urine culture no growth 24 hrs. Pt on Rocephin 1000 mg IVPB every 24 hrs. Problem: Knowledge Deficit Goal: Patient/patient promotions representative demonstrates understanding of disease process, treatment [...] discharge planning process 5. Communicate referral to family life educator as appropriate 6. Communicate referral to consulting solution manager as appropriate 7. Collaborate with case management/social group worker for discharge needs Outcome: Progressing Note: [...] supplement as ordered 13. Collaborate with clinical consulting solution manager 14. Include patient/ patient's promotions representative in decisions related to nutrition Outcome: [...] be free from fall Description: Interventions: 1. [place] to environment 2. Hourly rounds addressing the [...] non-skid footwear 11. Teach patient and patient promotions representative to maintain environment for safety and [...] (cane, walker) within reach 19. Request patient promotions representative bring adaptive equipment/mobility aids from home or obtain and provide as needed 20. Consult pharmacy regarding effects of med's affecting mobility, cognition, and alternatives 21. Obtain physician order for PT if risk factors associated with mobility are present 22. Obtain physician order for OT as appropriate 23. Utilize diversional activities 24. Educate patient and patient promotions representative how to maintain a safe environment during visitation times (notify nurse prior to leaving bedside) 25. Consider appropriateness of medical or non-medical information specialist 26. Set up voiding schedule as appropriate (every 2 hours) Outcome: Progressing Note: Evaluation of progress towards goal: Pt free from fall with hourly rounding continued & maintained. 4 Ps addressed. Problem: Pain Goal: Patient goal is pain score less than 4, able to rest, and participant in treatment plan as appropriate Description: INTERVENTIONS: 1. Encourage patient or legal promotions representative to report early pain and ask [...] per policy 9. Teach patient or legal promotions representative interventions for comforting Note: Evaluation of [...] at the bedside 7. Instruct patient/ patient promotions representative about use of safety devices 8. Include patient/ patient promotions representative in decisions related to safety Note: [...] hygiene technique 7. Identify and instruct patient/patient promotions representative in use of appropriate isolation precautions for identified infection/symptoms 8. Provide and discuss with patient/patient promotions representative on educational MDRO sheet 9. Encourage and monitor nutritional status daily and consult consulting solution manager if indicated 10. Implement neutropenic guidelines as needed 11. Review exposure to history of communicable disease and recent travel history on admission 12. Encourage annual influenza vaccine 13. Encourage pneumonia vaccine Note: Evaluation of progress towards goal: Patient remains free from infection due to hospitalization. Patient remains afebrile at this time. Problem: Knowledge Deficit Goal: Patient/patient promotions representative demonstrates understanding of disease process, treatment [...] Score of =/> 25 or indicated by [facility] Assessment Goal: Patient should be free from fall Description: Interventions: 1. [place] to environment 2. Hourly rounds addressing the [...] non-skid footwear 11. Teach patient and patient promotions representative to maintain environment for safety and [...] (cane, walker) within reach 19. Request patient promotions representative bring adaptive equipment/mobility aids from home or obtain and provide as needed 20. Consult pharmacy regarding effects of med's affecting mobility, cognition, and alternatives 21. Obtain physician order for PT if risk factors associated with mobility are present 22. Obtain physician order for OT as appropriate 23. Utilize diversional activities 24. Educate patient and patient promotions representative how to maintain a safe environment during visitation times (notify nurse prior to leaving bedside) 25. Consider appropriateness of medical or non-medical information specialist 26. Set up voiding schedule as appropriate (every 2 hours) Note: Evaluation of progress towards goal: No falls at this time. Problem: Pain Goal: Patient goal is pain score less than 4, able to rest, and participant in treatment plan as appropriate Description: INTERVENTIONS: 1. Encourage patient or legal promotions representative to report early pain and ask [...] per policy 9. Teach patient or legal promotions representative interventions for comforting Outcome: Progressing Note: [...] at the bedside 7. Instruct patient/ patient promotions representative about use of safety devices 8. Include patient/ patient promotions representative in decisions related to safety Outcome: [...] hygiene technique 7. Identify and instruct patient/patient promotions representative in use of appropriate isolation precautions for identified infection/symptoms 8. Provide and discuss with patient/patient promotions representative on educational MDRO sheet 9. Encourage and monitor nutritional status daily and consult consulting solution manager if indicated 10. Implement neutropenic guidelines as needed 11. Review exposure to history of communicable disease and recent travel history on admission 12. Encourage annual influenza vaccine 13. Encourage pneumonia vaccine Outcome: Progressing Note: Evaluation of progress towards goal: Pt afebrile. WBCs 8.5. No antibiotics at this time. Blood cultures no growth. Urine culture sent. Problem: Knowledge Deficit Goal: Patient/patient promotions representative demonstrates understanding of disease process, treatment [...] Note: Evaluation of progress towards goal: Glucose [id number] mg/dl with no Humalog coverage required. BS [...] discharge planning process 5. Communicate referral to family life educator as appropriate 6. Communicate referral to consulting solution manager as appropriate 7. Collaborate with case management/social group worker for discharge needs Outcome: Progressing Note: [...] supplement as ordered 13. Collaborate with clinical consulting solution manager 14. Include patient/ patient's promotions representative in decisions related to nutrition Outcome: [...] be free from fall Description: Interventions: 1. [place] to environment 2. Hourly rounds addressing the [...] non-skid footwear 11. Teach patient and patient promotions representative to maintain environment for safety and [...] (cane, walker) within reach 19. Request patient promotions representative bring adaptive equipment/mobility aids from home or obtain and provide as needed 20. Consult pharmacy regarding effects of med's affecting mobility, cognition, and alternatives 21. Obtain physician order for PT if risk factors associated with mobility are present 22. Obtain physician order for OT as appropriate 23. Utilize diversional activities 24. Educate patient and patient promotions representative how to maintain a safe environment during visitation times (notify nurse prior to leaving bedside) 25. Consider appropriateness of medical or non-medical information specialist 26. Set up voiding schedule as appropriate (every 2 hours) Outcome: Progressing Note: Evaluation of progress towards goal: Pt free from fall with hourly rounding continued & maintained. 4 Ps addressed. Problem: Pain Goal: Patient goal is pain score less than 4, able to rest, and participant in treatment plan as appropriate Description: INTERVENTIONS: 1. Encourage patient or legal promotions representative to report early pain and ask [...] per policy 9. Teach patient or legal promotions representative interventions for comforting Outcome: Progressing Note: [...] at the bedside 7. Instruct patient/ patient promotions representative about use of safety devices 8. Include patient/ patient promotions representative in decisions related to safety Outcome: [...] hygiene technique 7. Identify and instruct patient/patient promotions representative in use of appropriate isolation precautions for identified infection/symptoms 8. Provide and discuss with patient/patient promotions representative on educational MDRO sheet 9. Encourage and monitor nutritional status daily and consult consulting solution manager if indicated 10. Implement neutropenic guidelines as needed 11. Review exposure to history of communicable disease and recent travel history on admission 12. Encourage annual influenza vaccine 13. Encourage pneumonia vaccine Outcome: Progressing Note: Evaluation of progress towards goal: Pt remains free of infection. Will continue to monitor vital signs and labs for signs/symptoms of infection Problem: Knowledge Deficit Goal: Patient/patient promotions representative demonstrates understanding of disease process, treatment plan, medications, and discharge instructions Description: INTERVENTIONS 1. Complete learning assessment and assess knowledge base 2. Provide teaching at level of understanding 3. Provide teaching via preferred learning method(s) Outcome: Progressing Note: Evaluation of progress towards goal: Pt/pt promotions representative demonstrates understanding of plan of care, [...] supplement as ordered 13. Collaborate with clinical consulting solution manager 14. Include patient/ patient's promotions representative in decisions related to nutrition Outcome: [...] be free from fall Description: Interventions: 1. [place] to environment 2. Hourly rounds addressing the [...] non-skid footwear 11. Teach patient and patient promotions representative to maintain environment for safety and [...] (cane, walker) within reach 19. Request patient promotions representative bring adaptive equipment/mobility aids from home or obtain and provide as needed 20. Consult pharmacy regarding effects of med's affecting mobility, cognition, and alternatives 21. Obtain physician order for PT if risk factors associated with mobility are present 22. Obtain physician order for OT as appropriate 23. Utilize diversional activities 24. Educate patient and patient promotions representative how to maintain a safe environment during visitation times (notify nurse prior to leaving bedside) 25. Consider appropriateness of medical or non-medical information specialist 26. Set up voiding schedule as appropriate [...] Description: INTERVENTIONS: 1. Encourage patient or legal promotions representative to report early pain and ask [...] per policy 9. Teach patient or legal promotions representative interventions for comforting Outcome: Progressing Note: [...] at the bedside 7. Instruct patient/ patient promotions representative about use of safety devices 8. Include patient/ patient promotions representative in decisions related to safety Outcome: [...] hygiene technique 7. Identify and instruct patient/patient promotions representative in use of appropriate isolation precautions for identified infection/symptoms 8. Provide and discuss with patient/patient promotions representative on educational MDRO sheet 9. Encourage and monitor nutritional status daily and consult consulting solution manager if indicated 10. Implement neutropenic guidelines as needed 11. Review exposure to history of communicable disease and recent travel history on admission 12. Encourage annual influenza vaccine 13. Encourage pneumonia vaccine Outcome: Progressing Note: Evaluation of progress towards goal: Infection safety policies will be applied to patient's care. Monitoring s/s, labs, and vitals for indications of infection. Problem: Knowledge Deficit Goal: Patient/patient promotions representative demonstrates understanding of disease process, treatment [...] discharge planning process 5. Communicate referral to family life educator as appropriate 6. Communicate referral to consulting solution manager as appropriate 7. Collaborate with case management/social group worker for discharge needs Outcome: Progressing Note: [...] supplement as ordered 13. Collaborate with clinical consulting solution manager 14. Include patient/ patient's promotions representative in decisions related to nutrition Outcome: [...] Score of =/> 25 or indicated by [facility] Assessment Goal: Patient should be free from fall Description: Interventions: 1. [place] to environment 2. Hourly rounds addressing the [...] non-skid footwear 11. Teach patient and patient promotions representative to maintain environment for safety and [...] (cane, walker) within reach 19. Request patient promotions representative bring adaptive equipment/mobility aids from home or obtain and provide as needed 20. Consult pharmacy regarding effects of med's affecting mobility, cognition, and alternatives 21. Obtain physician order for PT if risk factors associated with mobility are present 22. Obtain physician order for OT as appropriate 23. Utilize diversional activities 24. Educate patient and patient promotions representative how to maintain a safe environment during visitation times (notify nurse prior to leaving bedside) 25. Consider appropriateness of medical or non-medical information specialist 26. Set up voiding schedule as appropriate (every 2 hours) Outcome: Progressing Note: Evaluation of progress towards goal: Fall prevention measures are being implemented to prevent and reduce the risk of patient falls. Problem: Pain Goal: Patient goal is pain score less than 4, able to rest, and participant in treatment plan as appropriate Description: INTERVENTIONS: 1. Encourage patient or legal promotions representative to report early pain and ask [...] per policy 9. Teach patient or legal promotions representative interventions for comforting Outcome: Progressing Note: [...] at the bedside 7. Instruct patient/ patient promotions representative about use of safety devices 8. Include patient/ patient promotions representative in decisions related to safety Outcome: [...] hygiene technique 7. Identify and instruct patient/patient promotions representative in use of appropriate isolation precautions for identified infection/symptoms 8. Provide and discuss with patient/patient promotions representative on educational MDRO sheet 9. Encourage and monitor nutritional status daily and consult consulting solution manager if indicated 10. Implement neutropenic guidelines as needed 11. Review exposure to history of communicable disease and recent travel history on admission 12. Encourage annual influenza vaccine 13. Encourage pneumonia vaccine Outcome: Progressing Note: Evaluation of progress towards goal: Pt remains free of infection. Will continue to monitor vital signs and labs for signs/symptoms of infection Problem: Knowledge Deficit Goal: Patient/patient promotions representative demonstrates understanding of disease process, treatment plan, medications, and discharge instructions Description: INTERVENTIONS 1. Complete learning assessment and assess knowledge base 2. Provide teaching at level of understanding 3. Provide teaching via preferred learning method(s) Outcome: Progressing Note: Evaluation of progress towards goal: Pt/pt promotions representative demonstrates understanding of plan of care, [...] supplement as ordered 13. Collaborate with clinical consulting solution manager 14. Include patient/ patient's promotions representative in decisions related to nutrition Outcome: [...] be free from fall Description: Interventions: 1. [place] to environment 2. Hourly rounds addressing the [...] non-skid footwear 11. Teach patient and patient promotions representative to maintain environment for safety and [...] (cane, walker) within reach 19. Request patient promotions representative bring adaptive equipment/mobility aids from home or obtain and provide as needed 20. Consult pharmacy regarding effects of med's affecting mobility, cognition, and alternatives 21. Obtain physician order for PT if risk factors associated with mobility are present 22. Obtain physician order for OT as appropriate 23. Utilize diversional activities 24. Educate patient and patient promotions representative how to maintain a safe environment during visitation times (notify nurse prior to leaving bedside) 25. Consider appropriateness of medical or non-medical information specialist 26. Set up voiding schedule as appropriate (every 2 hours) Outcome: Progressing Note: Evaluation of progress towards goal: Pt remains free from falls. Bed locked in low position, area free of hazards, adequate lighting, and call light within reach DISCHARGE PLANNING NOTE Referral sent to [facility] (P# [phone] ; F# [phone]) via [employer] for [facility] (P# [phone] ; F# [phone]) Images from the original note were not included. DISCHARGE PLANNING NOTE Fire Alarm Technician met with patient, introduced self, and explained role. Patient educated on safe discharge plan. Pt admitted 09/20/2023 with Acute kidney injury (CMS-HCC) [N17.9] per chart review. Consults: Nephrology Discharge Barriers per Daily Transition Rounds and chart review: dialysis plan, IV meds Past Medical History: Diagnosis Date Arrhythmia Hypertension Injury of back Disc L4 and L5 Obesity Systolic and diastolic CHF, acute ([facility]) 09/03/2023 Visual impairment Prior to admission patient [...] and referral to outpt dialysis. Renal in [place]. [facility] tasked to send HD referral. Services Requested: Services Requested Discharge Disposition: Outpatient Dialysis Outpatient Dialysis Name: [facility] Initial DC Assessment Completed: Yes Goals: Goals home (pt-stated) Evaluation of progress towards goal: feeling better, up in room Will continue to follow as plan of care develops. CN discussed benefits and importance of medication compliance and follow ups. Please feel free to reach out for any discharge planning questions. - Christy oTdd RN 09/22/23 12:34 PM Problem: Pain Goal: Patient goal is pain score less than 4, able to rest, and participant in treatment plan as appropriate Description: INTERVENTIONS: 1. Encourage patient or legal promotions representative to report early pain and ask [...] per policy 9. Teach patient or legal promotions representative interventions for comforting Outcome: Progressing Note: [...] at the bedside 7. Instruct patient/ patient promotions representative about use of safety devices 8. Include patient/ patient promotions representative in decisions related to safety Outcome: [...] hygiene technique 7. Identify and instruct patient/patient promotions representative in use of appropriate isolation precautions for identified infection/symptoms 8. Provide and discuss with patient/patient promotions representative on educational MDRO sheet 9. Encourage and monitor nutritional status daily and consult consulting solution manager if indicated 10. Implement neutropenic guidelines as needed 11. Review exposure to history of communicable disease and recent travel history on admission 12. Encourage annual influenza vaccine 13. Encourage pneumonia vaccine Outcome: Progressing Note: Evaluation of progress towards goal: Pt afebrile. WBCs 10.0. Pt on Rocephin 1000 mg IVPB every 24 hrs. Problem: Knowledge Deficit Goal: Patient/patient promotions representative demonstrates understanding of disease process, treatment [...] discharge planning process 5. Communicate referral to family life educator as appropriate 6. Communicate referral to consulting solution manager as appropriate 7. Collaborate with case management/social group worker for discharge needs Outcome: Progressing Note: [...] supplement as ordered 13. Collaborate with clinical consulting solution manager 14. Include patient/ patient's promotions representative in decisions related to nutrition Outcome: [...] Score of =/> 25 or indicated by [facility] Assessment Goal: Patient should be free from fall Description: Interventions: 1. [place] to environment 2. Hourly rounds addressing the [...] non-skid footwear 11. Teach patient and patient promotions representative to maintain environment for safety and [...] (cane, walker) within reach 19. Request patient promotions representative bring adaptive equipment/mobility aids from home or obtain and provide as needed 20. Consult pharmacy regarding effects of med's affecting mobility, cognition, and alternatives 21. Obtain physician order for PT if risk factors associated with mobility are present 22. Obtain physician order for OT as appropriate 23. Utilize diversional activities 24. Educate patient and patient promotions representative how to maintain a safe environment during visitation times (notify nurse prior to leaving bedside) 25. Consider appropriateness of medical or non-medical information specialist 26. Set up voiding schedule as appropriate [...] Description: INTERVENTIONS: 1. Encourage patient or legal promotions representative to report early pain and ask [...] per policy 9. Teach patient or legal promotions representative interventions for comforting Outcome: Progressing Note: [...] at the bedside 7. Instruct patient/ patient promotions representative about use of safety devices 8. Include patient/ patient promotions representative in decisions related to safety Outcome: [...] hygiene technique 7. Identify and instruct patient/patient promotions representative in use of appropriate isolation precautions for identified infection/symptoms 8. Provide and discuss with patient/patient promotions representative on educational MDRO sheet 9. Encourage and monitor nutritional status daily and consult consulting solution manager if indicated 10. Implement neutropenic guidelines as needed 11. Review exposure to history of communicable disease and recent travel history on admission 12. Encourage annual influenza vaccine 13. Encourage pneumonia vaccine Outcome: Progressing Note: Evaluation of progress towards goal: Pt afebrile. WBCs 9.7. Pt on Rocephin 1000 mg IVPB every 24 hrs. Blood cultures no growth. Problem: Knowledge Deficit Goal: Patient/patient promotions representative demonstrates understanding of disease process, treatment [...] discharge planning process 5. Communicate referral to family life educator as appropriate 6. Communicate referral to consulting solution manager as appropriate 7. Collaborate with case management/social group worker for discharge needs Outcome: Progressing Note: [...] supplement as ordered 13. Collaborate with clinical consulting solution manager 14. Include patient/ patient's promotions representative in decisions related to nutrition Outcome: [...] Description: INTERVENTIONS: 1. Encourage patient or legal promotions representative to report early pain and ask [...] per policy 9. Teach patient or legal promotions representative interventions for comforting Outcome: Progressing Note: [...] at the bedside 7. Instruct patient/ patient promotions representative about use of safety devices 8. Include patient/ patient promotions representative in decisions related to safety Outcome: [...] hygiene technique 7. Identify and instruct patient/patient promotions representative in use of appropriate isolation precautions for identified infection/symptoms 8. Provide and discuss with patient/patient promotions representative on educational MDRO sheet 9. Encourage and monitor nutritional status daily and consult consulting solution manager if indicated 10. Implement neutropenic guidelines as needed 11. Review exposure to history of communicable disease and recent travel history on admission 12. Encourage annual influenza vaccine 13. Encourage pneumonia vaccine Outcome: Progressing Note: Evaluation of progress towards goal: Pt afebrile. WBCs 9.7. Pt on Rocephin 1000 mg IVPB every 24 hrs. Blood cultures no growth. Problem: Knowledge Deficit Goal: Patient/patient promotions representative demonstrates understanding of disease process, treatment [...] discharge planning process 5. Communicate referral to family life educator as appropriate 6. Communicate referral to consulting solution manager as appropriate 7. Collaborate with case management/social group worker for discharge needs Outcome: Progressing Note: [...] supplement as ordered 13. Collaborate with clinical consulting solution manager 14. Include patient/ patient's promotions representative in decisions related to nutrition Outcome: [...] & dasilva care provided. Problem: Cardiovascular - [place] Goal: Maintains optimal cardiac output and hemodynamic [...] wean Levophed drip. documented in this encounter [facility] 10-05-2023 Hospital course Narrative Images from the original note were not included. [facility] Physicians- Hospital Medicine Discharge Summary Patient's Name: Harris Castrejon Date of : 1955 Age: 68 yrs Gender: female PCP: Patient Care Team: Carol Akins PA-C as PCP - General (Physician Oil Changer) DATE OF ADMISSION: 09/20/2023 DATE OF DISCHARGE: 10/05/2023 DISCHARGE DIAGNOSES: Active Hospital Problems Diagnosis Date Noted Acute kidney injury ([facility]) 09/20/2023 Resolved Problems No resolved problems to display. CONSULTANTS: Consulting Providers Provider Service Specialty Ronnie Fitzgerald MD Z Nephrology Nephrology Deanna Adams MD Cardiology Clinical Cardiac Electrophysiology [facility] Physician Cardiology -- Cardiology PROCEDURES: No admission procedures for hospital encounter. Things needing follow up: - Hospital Course Harris Castrejonis a 68 y.o.female with past medical history of essential hypertension, paroxysmal AFib s/p ablation 03/20 on Coumadin, type 2 diabetes mellitus on metformin, chronic systolic heart failure (EF 40-45%) CKD and obesity. Patient presented to [place] emergency department on 09/19/2023 with few days [...] K and bicarb. She was transferred to [place] ICU for further care. Patient was admitted [...] to discharge. Diuretic plan was reconciled by business office technician, patient to follow-up with Nephrology in 1-2 [...] discharge. Patient was advised to follow-up with property inspector in the outpatient setting. While in ICU, [...] therapy Occupational therapy, who recommended discharge to prison facility. Patient and family refused and elected [...] Your Medications These medications were sent to [facility] - [facility] [address] [facility] [address] [facility] [address] bumetanide 2 mg tablet folic acid 1 [...] mL Adult diet Sonya Correa MD [address] [facility] [id number] Follow up Please follow up with Dr. Correa for evaluation of blood in the urine Carol Akins PA-C [address] [facility] [id number] Schedule an appointment as soon as possible for a visit in 1 week(s) Lilia Cox MD [address] [facility] [phone] Schedule an appointment as soon as possible for a visit in 1 week(s) Rafaela Allen MD [address] [facility] [phone] Schedule an appointment as soon as possible for a visit in 2 week(s) Sarika Sullivan MD [address] [facility] [phone] Follow up in 2 week(s) Soy Talamantes MD [address] [facility], [address] [facility] [phone] Schedule an appointment as soon as possible for a visit You can call and make an appointment with the mechanic insulator if you experience black stool or bloody stool Racquel Langston MD [address], [address] [facility] [phone] Schedule an appointment as soon as possible [...] questions. Electronically signed by: ELVI SCHREIBER MD [facility] Physician Hospitalists, Department of Internal Medicine 10/05/23 8:33 AM documented in this encounter [facility] 10-04-2023 Hospital Discharge instructions Elvi Schreiber [...] 145/90 Please follow-up with both the general perinatal director (heart doctor) and EP perinatal director (president of the [place]), you have a condition called atrial fibrillation [...] cannot be sent through Care Everywhere.Bumetanide, ADULT (Luxembourger)Folic Acid, ADULT (Luxembourger)Metoprolol, ADULT (Luxembourger)Midodrine, ADULT (Luxembourger)Pantoprazole, ADULT (Luxembourger)documented [facility]-04-2023 Consult note Associated Order (s): IP CONSULT TO ELECTROPHYSIOLOGY Images from the original note were not included. [facility] Physicians Cardiology - Electrophysiology [address] [place] [address] CONSULTATION PATIENT NAME: Harris Castrejon : 1955 AGE: 68 y.o. Date of Admission: 09/20/2023 Date of Consultation: 10/04/2023 Primary Electrical Logger: Dr. Consuelo Weinberg. Last visit July 2021 SUBJECTIVE REASON FOR CONSULT: AF management assistance CHIEF COMPLAINT: I was feeling really tired and weak HISTORY OF PRESENT ILLNESS: 68-year-old female who initially presented to [facility] with worsening generalized weakness over the past [...] L5 Obesity Systolic and diastolic CHF, acute ([facility]) 09/03/2023 Visual impairment SURGICAL HISTORY has a [...] chronic heart failure EF 40 45% with aicg-lo-aezsfgzp MR, moderate TR. Diuresing per Nephrology Acute on chronic renal failure stage 4. Baseline creatinine 1.8. Patient did require dialysis 09/21-. Anemia. Unclear origin. GI service head sign off. Patient refused to have EGD/colonoscopy Hematuria. Pending outpatient follow-up Hypertension. Midodrine scheduled. Nonobstructive CAD [facility] 2020 PLAN EP evaluation for management [...] for me. Will update attending [facility]iology This note was completed using a voice nurse informaticist system. Every effort was made to ensure accuracy. However, inadvertent computerized nurse informaticist errors may be present. NICOLAS Delgado 10/04/23 [address] [facility] I, SARIKA SULLIVAN MD, personally [...] premix) 2,000 mg intravenous PRN Shira Bialecki, MATERIAL HANDLER 2ND SHIFT-HELIARC WELDER Stopped at 09/30/23 1409 Or magnesium sulfate IVPB 4000 mg/100 mL in iso-osmotic water (40 mg/mL premix) 4,000 mg intravenous PRN Shira Bialecki, MATERIAL HANDLER 2ND SHIFT-HELIARC WELDER [START ON 10/05/2023] metOLazone (ZAROXOLYN) tablet 2.5 [...] mEq 20-50 mEq oral PRN Shira Bialecki, MATERIAL HANDLER 2ND SHIFT-HELIARC WELDER 30 mEq at 10/03/23 0628 Or potassium chloride (KAYCIEL) 20 mEq/15 mL solution 20-50 mEq 20-50 mEq oral PRN Shira Bialecki, MATERIAL HANDLER 2ND SHIFT-HELIARC WELDER potassium chloride (K-TAB,KLOR-CON) CR tablet 40 mEq 40 mEq oral BID Lilia Cox MD potassium chloride IVPB 10 mEq/50 mL in water (0.2 mEq/mL premix) 10 mEq intravenous PRN Shira Bialecki, MATERIAL HANDLER 2ND SHIFT-HELIARC WELDER Stopped at 09/30/23 1113 Or potassium chloride IVPB 10 mEq/100 mL in water (0.1 mEq/mL premix) 10 mEq intravenous PRN Shira Bialecki, MATERIAL HANDLER 2ND SHIFT-HELIARC WELDER sennosides-docusate sodium (SENOKOT-S) 8.6-50 mg 2 tablet 2 tablet oral Nightly Jaime Susan IV, MATERIAL HANDLER 2ND SHIFT-HELIARC WELDER 2 tablet at 09/26/232025 sodium phosphate 20 mmol in sodium chloride 0.9 % 250 mL IVPB 20 mmol intravenous PRN Shira Bialecki, MATERIAL HANDLER 2ND SHIFT-HELIARC WELDER Or sodium phosphate 20 mmol in sodium chloride 0.9 % 100 mL IVPB 20 mmol intravenous PRN Shira Bialecki, MATERIAL HANDLER 2ND SHIFT-HELIARC WELDER Or sod phos di, mono-K phos mono (K-PHOS NEUTRAL) 250 mg tablet 2 tablet 2 tablet oral PRN Shira Bialecki, MATERIAL HANDLER 2ND SHIFT-HELIARC WELDER sodium chloride 0.9 % flush 10 mL 10 mL intravenous Q96H Shiraz Danny, MATERIAL HANDLER 2ND SHIFT-HELIARC WELDER 10 mL at 10/03/23 1157 sodium chloride 0.9 % flush 10 mL 10 mL intravenous PRN Shiraz Danny, MATERIAL HANDLER 2ND SHIFT-HELIARC WELDER 10 mL at 09/21/23 1153 sodium chloride 0.9 % flush 10 mL 10 mL intravenous PRN Shirza Danny, MATERIAL HANDLER 2ND SHIFT-HELIARC WELDER 10 mL at 09/21/23 1500 sodium chloride 0.9 % flush 10 mL 10 mL intravenous Q96H Shiraz Danny, MATERIAL HANDLER 2ND SHIFT-HELIARC WELDER 10 mL at 10/03/23 1157 sodium chloride 0.9 % flush 10 mL 10 mL intravenous PRN Shiraz Danny, MATERIAL HANDLER 2ND SHIFT-HELIARC WELDER 10 mL at 09/21/23 1153 sodium chloride 0.9 % flush 10 mL 10 mL intravenous PRN Shiraz Danny, MATERIAL HANDLER 2ND SHIFT-HELIARC WELDER 10 mL at 09/21/23 1500 sodium chloride 0.9 % flush 10 mL 10 mL intravenous Q8H Shiraz Danny, MATERIAL HANDLER 2ND SHIFT-HELIARC WELDER 10 mL at 10/03/23 1157 And sodium citrate 4 % (3 mL) flush 2 mL 2 mL intravenous Q8H Shiraz Danny, MATERIAL HANDLER 2ND SHIFT-HELIARC WELDER And sodium chloride 0.9 % flush 10 mL 10 mL intravenous PRN Shiraz Danny, MATERIAL HANDLER 2ND SHIFT-HELIARC WELDER And sodium chloride 0.9 % flush 10 mL 10 mL intravenous PRN Shiraz Danny, MATERIAL HANDLER 2ND SHIFT-HELIARC WELDER 10 mL at 09/30/23 1518 And sodium citrate 4 % (3 mL) flush 2 mL 2 mL intravenous PRN Shiraz Adnny, MATERIAL HANDLER 2ND SHIFT-HELIARC WELDER sodium chloride 0.9 % flush 3 mL 3 mL intravenous Q12H Tanner Harris MD 3 mL at 10/04/23 0835 sodium chloride 0.9 % infusion 10 mL/hr intravenous Continuous PRN Salbador Matteder, MATERIAL HANDLER 2ND SHIFT-HELIARC WELDER Stopped at 09/29/23 0141 sodium chloride 0.9 % infusion 10 mL/hr intravenous Continuous PRN Salbador Howell, MATERIAL HANDLER 2ND SHIFT-HELIARC WELDER Stopped at 09/25/23 0130 sodium chloride 0.9 % infusion 10 mL/hr intravenous Continuous PRN Salbador Howell, MATERIAL HANDLER 2ND SHIFT-HELIARC WELDER Stopped at 10/01/23 1507 sodium chloride 0.9 % infusion 20 mL/hr intravenous Continuous PRN Tanner Harirs MD 20 mL/hr at 10/03/23 0853 20 mL/hr at 10/03/23 0853 sodium chloride 0.9 % infusion 250 mL hemodialysis Continuous Vidhit Miguel, DO sodium chloride 0.9 % infusion 250 mL hemodialysis Continuous Vidhit Miguel, DO sodium citrate 4 % (3 mL) flush 2 mL 2 mL intravenous Q96H Shiraz Danny, MATERIAL HANDLER 2ND SHIFT-HELIARC WELDER 2 mL at 09/29/23 1425 sodium citrate 4 % (3 mL) flush 2 mL 2 mL intravenous PRN Shiraz Danny, MATERIAL HANDLER 2ND SHIFT-HELIARC WELDER 2 mL at 09/22/23 1151 sodium citrate 4 % (3 mL) flush 2 mL 2 mL intravenous Q96H Shiraz Danny, MATERIAL HANDLER 2ND SHIFT-HELIARC WELDER 2 mL at 09/29/23 1424 sodium citrate 4 % (3 mL) flush 2 mL 2 mL intravenous PRN Shiraz Danny, MATERIAL HANDLER 2ND SHIFT-HELIARC WELDER 2 mL at 09/22/23 1150 Laboratory CBC: [...] This note was completed using a voice nurse informaticist system. Every effort was made to ensure accuracy. However, inadvertent computerized nurse informaticist errors may be present. NUTRITION ADULT FOLLOW UP NUTRITION ASSESSMENT: Patient History: Brief Clinical Summary: Per MD notes, past medical history significant for paroxysmal atrial fibrillation on warfarin, type 2 diabetes mellitus on home metformin use, CHF decreased EF of 40-45%, atrial flutter ablation on 03/21/2021, hypertension, and hyperlipidemia. She was recently discharged on 09/05/2023 following treatment for an BRANDEE. She presented to [place] on 09/19/2023 with complaints of [...] (H) 09/13/2021 Lab Results Component Value Date [id number] 09/24/2023 Lab Results Component Value Date [...] premix) 1,000 mg intravenous PRN Shira Restrepo MATERIAL HANDLER 2ND SHIFT-HELIARC WELDER Or calcium gluconate IVPB 2000 mg/100 mL (20 mg/mL premix) 2,000 mg intravenous PRN Shira Ortizi, MATERIAL HANDLER 2ND SHIFT-HELIARC WELDER Or calcium gluconate 3,000 mg in sodium chloride 0.9 % 100 mL IVPB 3,000 mg intravenous PRN Shira Restrepo, MATERIAL HANDLER 2ND SHIFT-HELIARC WELDER darbepoetin stefania-polysorbate (ARANESP) injection 100 mcg 100 [...] mEq 20-50 mEq oral PRN Shira Bialecki, MATERIAL HANDLER 2ND SHIFT-HELIARC WELDER potassium chloride (K-TAB,KLOR-CON) CR tablet 30 mEq 30 mEq oral Q6H Ulisses Silver MD 30 mEq at 10/01/23 0910 potassium chloride IVPB 10 mEq/50 mL in water (0.2 mEq/mL premix) 10 mEq intravenous PRN Shira Bialecki, MATERIAL HANDLER 2ND SHIFT-HELIARC WELDER Stopped at 09/30/23 1113 Or potassium chloride IVPB 10 mEq/100 mL in water (0.1 mEq/mL premix) 10 mEq intravenous PRN Shira Bialecki, MATERIAL HANDLER 2ND SHIFT-HELIARC WELDER sennosides-docusate sodium (SENOKOT-S) 8.6-50 mg 2 tablet 2 tablet oral Nightly Jaime Susan IV, MATERIAL HANDLER 2ND SHIFT-HELIARC WELDER 2 tablet at 09/26/236 sevelamer (RENVELA) tablet 800 mg 800 mg oral TID with meals Vidhit Miguel, DO 800 mg at 10/01/23 0910 sodium phosphate 20 mmol in sodium chloride 0.9 % 250 mL IVPB 20 mmol intravenous PRN Shira Bialecki, MATERIAL HANDLER 2ND SHIFT-HELIARC WELDER Or sodium phosphate 20 mmol in sodium chloride 0.9 % 100 mL IVPB 20 mmol intravenous PRN Shira Bialecki, MATERIAL HANDLER 2ND SHIFT-HELIARC WELDER Or sod phos di, mono-K phos mono (K-PHOS NEUTRAL) 250 mg tablet 2 tablet 2 tablet oral PRN Shira Bialecki, MATERIAL HANDLER 2ND SHIFT-HELIARC WELDER sodium chloride 0.9 % flush 10 mL 10 mL intravenous Q96H Shiraz Danny, MATERIAL HANDLER 2ND SHIFT-HELIARC WELDER 10 mL at 09/25/23 1212 sodium chloride 0.9 % flush 10 mL 10 mL intravenous PRN Shiraz Danny, MATERIAL HANDLER 2ND SHIFT-HELIARC WELDER 10 mL at 09/21/23 1153 sodium chloride 0.9 % flush 10 mL 10 mL intravenous PRN Shiraz Danny, MATERIAL HANDLER 2ND SHIFT-HELIARC WELDER 10 mL at 09/21/23 1500 sodium chloride 0.9 % flush 10 mL 10 mL intravenous Q96H Shiraz Danny, MATERIAL HANDLER 2ND SHIFT-HELIARC WELDER 10 mL at 09/25/23 1212 sodium chloride 0.9 % flush 10 mL 10 mL intravenous PRN Shiraz Danny, MATERIAL HANDLER 2ND SHIFT-HELIARC WELDER 10 mL at 09/21/23 1153 sodium chloride 0.9 % flush 10 mL 10 mL intravenous PRN Shiraz Danny, MATERIAL HANDLER 2ND SHIFT-HELIARC WELDER 10 mL at 09/21/23 1500 sodium chloride 0.9 % flush 10 mL 10 mL intravenous Q8H Shiraz Danny, MATERIAL HANDLER 2ND SHIFT-HELIARC WELDER 10 mL at 09/30/23 2030 And sodium citrate 4 % (3 mL) flush 2 mL 2 mL intravenous Q8H Shiraz Danny, MATERIAL HANDLER 2ND SHIFT-HELIARC WELDER And sodium chloride 0.9 % flush 10 mL 10 mL intravenous PRN Shiraz Danny, MATERIAL HANDLER 2ND SHIFT-HELIARC WELDER And sodium chloride 0.9 % flush 10 mL 10 mL intravenous PRN Shiraz Danny, MATERIAL HANDLER 2ND SHIFT-HELIARC WELDER 10 mL at 09/30/23 1518 And sodium citrate 4 % (3 mL) flush 2 mL 2 mL intravenous PRN Shiraz Danny, MATERIAL HANDLER 2ND SHIFT-HELIARC WELDER sodium chloride 0.9 % flush 3 mL 3 mL intravenous Q12H Tanner Harris MD 3 mL at 10/01/23 0911 sodium chloride 0.9 % infusion 10 mL/hr intravenous Continuous PRN Salbador Matteder, MATERIAL HANDLER 2ND SHIFT-HELIARC WELDER Stopped at 09/29/23 0141 sodium chloride 0.9 % infusion 10 mL/hr intravenous Continuous PRN Salbador Howell, MATERIAL HANDLER 2ND SHIFT-HELIARC WELDER Stopped at 09/25/23 0130 sodium chloride 0.9 % infusion 10 mL/hr intravenous Continuous PRN Salbador Howell, MATERIAL HANDLER 2ND SHIFT-HELIARC WELDER Stopped at 09/30/23 0521 sodium chloride 0.9 % infusion 20 mL/hr intravenous Continuous PRN Tanner Harris MD Stopped at 09/28/23 1045 sodium chloride 0.9 % infusion 250 mL hemodialysis Continuous Vidhit Miguel, DO sodium chloride 0.9 % infusion 250 mL hemodialysis Continuous Vidhit Miguel, DO sodium citrate 4 % (3 mL) flush 2 mL 2 mL intravenous Q96H Shiraz Danny, MATERIAL HANDLER 2ND SHIFT-HELIARC WELDER 2 mL at 09/29/23 1425 sodium citrate 4 % (3 mL) flush 2 mL 2 mL intravenous PRN Shiraz Danny, MATERIAL HANDLER 2ND SHIFT-HELIARC WELDER 2 mL at 09/22/23 1151 sodium citrate 4 % (3 mL) flush 2 mL 2 mL intravenous Q96H Shiraz Danny, MATERIAL HANDLER 2ND SHIFT-HELIARC WELDER 2 mL at 09/29/23 1424 sodium citrate 4 % (3 mL) flush 2 mL 2 mL intravenous PRN Shiraz Danny, MATERIAL HANDLER 2ND SHIFT-HELIARC WELDER 2 mL at 09/22/23 1150 Nutrition Focused Physical Findings +HD catheter. Per RN flowsheets patient with fair appetite, last BM 09/30. Patient denies nausea and vomiting. Skin (per nursing flow sheets): Skin Color: Pale; [place] (09/30/231899) Skin Temp: Dry; Warm (09/30/231899) Wound [...] oz) Admit Weight: 131.8kg (Bed Scale, 09/20/23) [place] Body Weight: 57kg Weight Changes: 17 kg (12%) weight loss this admit, in some part at least fluid related as patient initially on dialysis and now on Bumex Current Body Mass Index: Body mass index is 42.12 kg/m . Comparative Standards: Estimated Energy Needs: 0027-2902 kcals daily. Method and weight used: 28-32 kcal/kg IBW Estimated Protein Needs: 68-86 grams daily. Method and weight used: 1.2-1.5g protein/kg IBW Estimated Fluid Needs: 7206-6721 ml daily. Method weight used: 28-32 ml/kg [...] from the original note were not included. [facility] [address] [place] [address] HISTORY & PHYSICAL / CONSULT NOTE Harris [...] nonobstructive CAD, chronic systolic heart failure, and zipv-ce-pqtqgoec MR presented to the ED on 09/19/2023 [...] L5 Obesity Systolic and diastolic CHF, acute ([facility]) 09/03/2023 Visual impairment Previous Surgical History: Past Surgical History: Procedure Laterality Date Cardiac catheterization 02/16/2021 Performed by Kelli Su MD at [facility] CARDIAC CATH LABS Caval Tricuspid Isthmus RFA, Carto w/ICE N/A 03/21/2021 Performed by Lurdes Weinberg MD at [facility] HRC (EP) Coronary angiogram and left ventricular gram/pressure N/A 02/16/2021 Performed by Kelli Su MD at [facility] CARDIAC CATH LABS Coronary fractional flow reserve N/A 02/16/2021 Performed by Kelli Su MD at [facility] CARDIAC CATH LABS Intravascular pressure measurement first vessel each additional vessel (fractional flow reserve) N/A 02/16/2021 Performed by Kelli Su MD at [facility] CARDIAC CATH LABS MYRINGOTOMY W/ TUBES TONSILLECTOMY Allergies: No Known Allergies Hospital Meds: Current Facility-Administered Medications Medication Dose Route Frequency Provider Last Rate Last Admin bumetanide (BUMEX) 3 mg in sodium chloride 0.9 % 50 mL IVPB 3 mg intravenous BID Vidhit Miguel, DO Stopped at 09/26/23 0912 calcium gluconate IVPB 1000 mg/50 mL (20 mg/mL premix) 1,000 mg intravenous PRN Salbador Howell APRN-HELIARC WELDER Stopped at 09/26/23 2221 Or calcium gluconate [...] tablet 1 mg 1 mg oral Daily [place] NICOLAS Stahl 1 mg at 09/26/23 0817 [...] infusion 0.5-2.5 mcg/kg/min intravenous Continuous Danie Reid MATERIAL HANDLER 2ND SHIFT-HELIARC WELDER 9.4 mL/hr at 09/27/23 0016 0.5 mcg/kg/min [...] mL 10 mL intravenous Q96H Shiraz Danny, MATERIAL HANDLER 2ND SHIFT-HELIARC WELDER 10 mL at 09/25/23 1212 sodium chloride 0.9 % flush 10 mL 10 mL intravenous PRN Shiraz Danny, MATERIAL HANDLER 2ND SHIFT-HELIARC WELDER 10 mL at 09/21/23 1153 sodium chloride 0.9 % flush 10 mL 10 mL intravenous PRN Shiraz Danny, MATERIAL HANDLER 2ND SHIFT-HELIARC WELDER 10 mL at 09/21/23 1500 sodium chloride 0.9 % flush 10 mL 10 mL intravenous Q96H Shiraz Danny, MATERIAL HANDLER 2ND SHIFT-HELIARC WELDER 10 mL at 09/25/23 1212 sodium chloride 0.9 % flush 10 mL 10 mL intravenous PRN Shiraz Danny, MATERIAL HANDLER 2ND SHIFT-HELIARC WELDER 10 mL at 09/21/23 1153 sodium chloride 0.9 % flush 10 mL 10 mL intravenous PRN Shiraz Danny, MATERIAL HANDLER 2ND SHIFT-HELIARC WELDER 10 mL at 09/21/23 1500 sodium chloride 0.9 % flush 10 mL 10 mL intravenous Q8H Shiraz Danny, MATERIAL HANDLER 2ND SHIFT-HELIARC WELDER 10 mL at 09/26/23 1208 And sodium citrate 4 % (3 mL) flush 2 mL 2 mL intravenous Q8H Shiraz Danny, MATERIAL HANDLER 2ND SHIFT-HELIARC WELDER And sodium chloride 0.9 % flush 10 mL 10 mL intravenous PRN Shiraz Danny, MATERIAL HANDLER 2ND SHIFT-HELIARC WELDER And sodium chloride 0.9 % flush 10 mL 10 mL intravenous PRN Shiraz Danny, MATERIAL HANDLER 2ND SHIFT-HELIARC WELDER 10 mL at 09/26/23 0305 And sodium citrate 4 % (3 mL) flush 2 mL 2 mL intravenous PRN Shiraz Danny, MATERIAL HANDLER 2ND SHIFT-HELIARC WELDER sodium chloride 0.9 % flush 3 mL 3 mL intravenous Q12H Tanner Harris MD 3 mL at 09/26/23 2311 sodium chloride 0.9 % infusion 10 mL/hr intravenous Continuous PRN Salbador Howell, MATERIAL HANDLER 2ND SHIFT-HELIARC WELDER sodium chloride 0.9 % infusion 10 mL/hr intravenous Continuous PRN Salbador Howell, MATERIAL HANDLER 2ND SHIFT-HELIARC WELDER Stopped at 09/25/23 0130 sodium chloride 0.9 % infusion 10 mL/hr intravenous Continuous PRN Salbador Howell, MATERIAL HANDLER 2ND SHIFT-HELIARC WELDER 10 mL/hr at 09/26/23 0635 10 mL/hr at 09/26/23 0635 sodium chloride 0.9 % infusion 20 mL/hr intravenous Continuous PRN Tanner Harris MD sodium chloride 0.9 % infusion 250 mL hemodialysis Continuous Vidhit Miguel, DO sodium chloride 0.9 % infusion 250 mL hemodialysis Continuous Vidhit Miguel, DO sodium citrate 4 % (3 mL) flush 2 mL 2 mL intravenous Q96H Shiraz Danny, MATERIAL HANDLER 2ND SHIFT-HELIARC WELDER 2 mL at 09/25/23 1213 sodium citrate 4 % (3 mL) flush 2 mL 2 mL intravenous PRN Shiraz Danny, MATERIAL HANDLER 2ND SHIFT-HELIARC WELDER 2 mL at 09/22/23 1151 sodium citrate 4 % (3 mL) flush 2 mL 2 mL intravenous Q96H Shiraz Danny, MATERIAL HANDLER 2ND SHIFT-HELIARC WELDER 2 mL at 09/25/23 1213 sodium citrate 4 % (3 mL) flush 2 mL 2 mL intravenous PRN Shiraz Danny, MATERIAL HANDLER 2ND SHIFT-HELIARC WELDER 2 mL at 09/22/23 1150 Home Meds: [...] 40-45% per TTE 09/04/2023 Nonobstructive CAD per [facility] Acute hypoxemic respiratory failure secondary to [...] This note was completed using a voice nurse informaticist system. Every effort was made to ensure accuracy. However, inadvertent computerized nurse informaticist errors may be present. Amrita Lira PA-C 09/27/23 0352 [facility] I have personally performed a [...] 40-45% Nonobstructive atherosclerotic heart disease of the [place] coronary arteries without angina pectoris Acute respiratory [...] This note was completed using a voice nurse informaticist system. Every effort was made to ensure accuracy. However, inadvertent computerized nurse informaticist errors may be present. Associated Order(s): IP CONSULT TO HEMATOLOGY Images from the original note were not included. [facility] Gurpreet Nagy M.D. Racquel Langston M.D. Sonya Ruelas M.D. Sunni Stack M.D. Tara Funes, MATERIAL HANDLER 2ND SHIFT-HELIARC WELDER Keron Stahl, MATERIAL HANDLER 2ND SHIFT-HELIARC WELDER Tiffanie Segal, MATERIAL HANDLER 2ND SHIFT-HELIARC WELDER Rufina Dowd, MATERIAL HANDLER 2ND SHIFT-HELIARC WELDER JUAN Brown M.D. Tc Ridley M.D. Reinaldo Felder M.D. Alfred Adams M.D. Carole Gaviria, [facility] Jenny Unique, [facility] Tian Isra, MATERIAL [facility] Yeny Medrano, MATERIAL HANDLER [facility] Mendy Rodrigues, MATERIAL HANDLER [facility] HEMAT[facility]Y ONCOLOGY CONSULT NOTE Reason for consult: for thrombocytopenia History of present illness: The patient is a 68 y.o. female with a PMHx of atrial fibrillation, HTN, CKD now on dialysis, CHF, and obesity. She presented to [facility] from [facility] with complaints of generalized weakness. She was recently admitted earlier in August and diagnosed with kidney disease, but was not on dialysis. Upon arrival to [place] [facility], she was found to have an INR of 16.6, a creatinine of 6.52, while being hypotensive requiring pressor support. She was transferred to [facility] for further evaluation and management. During her [...] 02/16/2021 Performed by Kelli Su MD at [facility] CARDIAC CATH LABS Caval Tricuspid Isthmus RFA, Carto w/ICE N/A 03/21/2021 Performed by Lurdes Weinberg MD at [facility] (EP) Coronary angiogram and left ventricular gram/pressure N/A 02/16/2021 Performed by Kelli Su MD at [facility] CARDIAC CATH LABS Coronary fractional flow reserve N/A 02/16/2021 Performed by Kelli Su MD at [facility] CARDIAC CATH LABS Intravascular pressure measurement first vessel each additional vessel (fractional flow reserve) N/A 02/16/2021 Performed by Kelli Su MD at [facility] CARDIAC CATH LABS MYRINGOTOMY W/ TUBES TONSILLECTOMY [...] membrane of both ears Typical atrial flutter ([facility]) Coronary artery disease involving [place] coronary artery of [place] heart without angina pectoris Tachycardia induced cardiomyopathy ([facility]) Type 2 diabetes mellitus with circulatory disorder, without long-term current use of insulin ([facility]) Other hyperlipidemia Paroxysmal atrial fibrillation ([facility]) BRANDEE (acute kidney injury) ([facility]) Hyperkalemia Bilateral lower extremity edema Systolic and diastolic CHF, acute ([facility]) Acute kidney injury ([facility]) Assessment/Plan Impression: #. Thrombocytopenia - Platelet count [...] smear, reticulocyte, PF4, B12, Folate, Iron, Ferritin, [id number] all pending. Continue supportive care per primary and consulted services. Patient lives in [place] and could follow up with Dr. Barnes [...] Thank you for the consultation. Keron Stahl, MATERIAL HANDLER 2ND SHIFT-HELIARC WELDER [facility] [address] [place] [address] Epic Chat is my preferred mode of contact. For after hours (evening, weekends, holidays) Hematology Oncology needs, please call the airway traffic controller service [phone]. Please ask for the MD airway traffic controller. September 24, 2023, 2:21 PM NICOLAS Chavez 09/24/23 4852 I have personally performed a face to [...] MD Associated Order(s): IP CONSULT TO GASTROENTEROLOGY [facility] Initial Gastroenterology/Hepatology Consultation Note IDENTIFYING DATA PATIENT: [...] L5 Obesity Systolic and diastolic CHF, acute ([facility]) 09/03/2023 Visual impairment Past Surgical History: Procedure Laterality Date Cardiac catheterization 02/16/2021 Performed by Kelli Su MD at [facility] CARDIAC CATH LABS Caval Tricuspid Isthmus RFA, Carto w/ICE N/A 03/21/2021 Performed by Lurdes Weinberg MD at [facility] (EP) Coronary angiogram and left ventricular gram/pressure N/A 02/16/2021 Performed by Kelli Su MD at [facility] CARDIAC CATH LABS Coronary fractional flow reserve N/A 02/16/2021 Performed by Kelli Su MD at [facility] CARDIAC CATH LABS Intravascular pressure measurement first vessel each additional vessel (fractional flow reserve) N/A 02/16/2021 Performed by Kelli Su MD at [facility] CARDIAC CATH LABS MYRINGOTOMY W/ TUBES TONSILLECTOMY [...] NICOLAS Webb, 20 mg at 09/24/23 0620 glucagon [...] mL, 10 mL, intravenous, Q96H, Shiraz Danny, MATERIAL HANDLER 2ND SHIFT-HELIARC WELDER sodium chloride 0.9 % flush 10 mL, 10 mL, intravenous, PRN, Shiraz Danny, MATERIAL HANDLER 2ND SHIFT-HELIARC WELDER, 10 mL at 09/21/23 1153 sodium chloride 0.9 % flush 10 mL, 10 mL, intravenous, PRN, Shiraz Danny, MATERIAL HANDLER 2ND SHIFT-HELIARC WELDER, 10 mL at 09/21/23 1500 sodium chloride 0.9 % flush 10 mL, 10 mL, intravenous, Q96H, Shiraz Danny, MATERIAL HANDLER 2ND SHIFT-HELIARC WELDER sodium chloride 0.9 % flush 10 mL, 10 mL, intravenous, PRN, Shiraz Danny, MATERIAL HANDLER 2ND SHIFT-HELIARC WELDER, 10 mL at 09/21/23 1153 sodium chloride 0.9 % flush 10 mL, 10 mL, intravenous, PRN, Shiraz Danny, MATERIAL HANDLER 2ND SHIFT-HELIARC WELDER, 10 mL at 09/21/23 1500 sodium chloride [...] mL, 2 mL, intravenous, PRN, Shiraz Delgado, MATERIAL HANDLER 2ND SHIFT-HELIARC WELDER sodium chloride 0.9 % flush 3 mL, [...] mL, 2 mL, intravenous, Q96H, Shiraz Danny, MATERIAL HANDLER 2ND SHIFT-HELIARC WELDER sodium citrate 4 % (3 mL) flush 2 mL, 2 mL, intravenous, PRN, Shiraz Delgado, MATERIAL HANDLER 2ND SHIFT-HELIARC WELDER, 2 mL at 09/22/23 1151 sodium citrate 4 % (3 mL) flush 2 mL, 2 mL, intravenous, Q96H, Shiraz Danny, MATERIAL HANDLER 2ND SHIFT-HELIARC WELDER sodium citrate 4 % (3 mL) flush 2 mL, 2 mL, intravenous, PRN, Shiraz Danny, MATERIAL HANDLER 2ND SHIFT-HELIARC WELDER, 2 mL at 09/22/23 1150 sodium zirconium [...] the care of Harris Castrejon. NICOLAS Sandoval [facility] [address] [place] [address] PH: [phone] NICOLAS Mann 09/24/23 1630 Urology Consultation Patient: [...] and saline bolus and was transferred to [facility] for further evaluation. On arrival, nursing [...] 02/16/2021 Performed by Kelli Su MD at [facility] CARDIAC CATH LABS Caval Tricuspid Isthmus RFA, Carto w/ICE N/A 03/21/2021 Performed by Lurdes Weinberg MD at [facility] ([facility]) Coronary angiogram and left ventricular gram/pressure N/A 02/16/2021 Performed by Kelli Su MD at [facility] CARDIAC CATH LABS Coronary fractional flow reserve N/A 02/16/2021 Performed by Kelli Su MD at [facility] CARDIAC CATH LABS Intravascular pressure measurement first vessel each additional vessel (fractional flow reserve) N/A 02/16/2021 Performed by Kelli Su MD at [facility] CARDIAC CATH LABS MYRINGOTOMY W/ TUBES TONSILLECTOMY [...] : Normal external female genitalia Conditions, 20 Tajik Dasilva catheter inserted into the urethra. No [...] saline fluid bolus. Patient was transferred to [facility] for further evaluation. Nephrology is being [...] EF 40-45% with left ventricular hypertrophy noted. [id number] mitral regurgitation noted. Moderate tricuspid regurgitation noted. [...] 03/21/2021 Performed by Lurdes Weinberg MD at [facility] ([facility]) Coronary angiogram and left ventricular gram/pressure N/A 02/16/2021 Performed by Kelli Su MD at [facility] CARDIAC CATH LABS Coronary fractional flow reserve N/A 02/16/2021 Performed by Kelli Su MD at [facility] CARDIAC CATH LABS Intravascular pressure measurement first vessel each additional vessel (fractional flow reserve) N/A 02/16/2021 Performed by Kelli Su MD at [facility] CARDIAC CATH LABS MYRINGOTOMY W/ TUBES TONSILLECTOMY [...] the patient's care. Please contact me at [phone] (Office) or [phone] (Answering service) with any questions. Dede Rivera DO [facility] This note was created with the assistance of a speech-recognition program. Although the intention is to generate a document that actually reflects the content of the visit, no guarantees can be provided that every mistake has been identified and corrected by editing. documented in this encounter [facility] 10-04-2023 History of Present illness Narrative Fire Alarm Technician is looking ahead at the 60 day OD list. The patient was admitted to [facility] 09/20/23. Her name was added to the admit list. Per department policy, will not send out any overdue letters. documented in this encounter [facility] 09-21-2023 Procedure note Associated Ord er(s): [...] Insertion Post-Procedure Diagnose(s): Hyperkalemia; Acute kidney injury ([facility] PREOPERATIVE DIAGNOSIS: BRANDEE on CKD 4 Hyperkalemia [...] to verify the correct patient, procedure, equipment, student support advisor and site/side marked as required. Fire Risk [...] procedure Complications: none Interventions: none Proceduralist Shiraz Delgdao CNP ESTIMATED BLOOD LOSS: Less than 20ml FINDINGS: Successful placement of R IJ trialysis line verified by chest xray with no pneumothorax POST OPERATIVE DIAGNOSIS: Same as above NICOLAS Eubanks 09/21/23 1052 documented in this encounter [facility] Mark[facility]oni 09-20-2023 History and physical note CRITICAL CARE [...] treatment for an BRANDEE. She presented to [place] [facility] on 09/19/2023 with complaints of [...] normal saline prior to being transferred to [facility] for further evaluation. Upon evaluation in the [...] L5 Obesity Systolic and diastolic CHF, acute ([facility]) 09/03/2023 Visual impairment Past Surgical History: Procedure Laterality Date Cardiac catheterization 02/16/2021 Performed by Kelli Su MD at [facility] CARDIAC CATH LABS Caval Tricuspid Isthmus RFA, Carto w/ICE N/A 03/21/2021 Performed by Lurdes Weinberg MD at [facility] (EP) Coronary angiogram and left ventricular gram/pressure N/A 02/16/2021 Performed by Kelli Su MD at [facility] CARDIAC CATH LABS Coronary fractional flow reserve N/A 02/16/2021 Performed by Kelli Su MD at [facility] CARDIAC CATH LABS Intravascular pressure measurement first vessel each additional vessel (fractional flow reserve) N/A 02/16/2021 Performed by Kelli Su MD at [facility] CARDIAC CATH LABS MYRINGOTOMY W/ TUBES TONSILLECTOMY [...] Procedure Component Value Units Date/Time Blood culture [[id number]] Collected: 09/19/232352 Specimen: Blood, Peripheral Draw Updated: 09/20/2355 Blood culture [[id number]] Collected: 09/19/232352 Specimen: Blood, Peripheral Draw Updated: 09/20/2355 SARS/FLU A+B/RSV by NAAT/Molecular (M4RT Collection Tube) [[id number]] Collected: 09/19/23 2326 Specimen: Nasopharynx Updated: 09/20/23 0029 FLU A PCR Negative FLU B PCR Negative RSV by PCR Negative SARS CoV 2 BY PCR Not Detected Patient Active Problem List Diagnosis Cerumen debris on tympanic membrane of both ears Typical atrial flutter ([facility]) Coronary artery disease involving [place] coronary artery of [place] heart without angina pectoris Tachycardia induced cardiomyopathy ([facility]) Type 2 diabetes mellitus with circulatory disorder, without long-term current use of insulin ([facility]) Other hyperlipidemia Paroxysmal atrial fibrillation ([facility]) BRANDEE (acute kidney injury) ([facility]) Hyperkalemia Bilateral lower extremity edema Systolic and diastolic CHF, acute ([facility]) Acute kidney injury ([facility]) ASSESSMENT: BRANDEE on ARF w/ baseline CKD [...] titration of care by a Critical Care Small Lot Operator. Failure to do so may result in further organ system failure, imminent deterioration, or . NICOLAS Webb 09/20/23 0747 [facility] CERVICAL SPINE WO CONT [...] Watson Ceja MD on 09/20/2023 1:42 AM [facility] Evaluation note Diagnosis Acute kidney injury (CMS-HCC)- Primary Acute kidney injury (CMS-HCC) Hyperkalemia Hyperpotassemia Folate deficiency Other B-complex deficiencies Systolic and diastolic CHF, acute (CMS-HCC) Type 2 diabetes mellitus with other circulatory complication, without long-term current use of insulin (CMS-HCC) documented in this encounter [facility] Diagnosis Typical atrial flutter (CMS-HCC)- Primary documented in this encounter [facility]* Diagnosis Rectal cancer (CMS-HCC)- Primary Malignant neoplasm of rectum documented in this encounter [facility]* Diagnosis Esophagitis- Primary Unspecified esophagitis documented in this encounter [facility]* Diagnosis Septic shock (CMS-HCC)- [...] Elvi Schreiber MD [address] [place] [id number] Referral ID Status Reason Start Date Expiration Date V isits Requested Visits Authorized [id number] Pending Review 10/04/2023 10/03/2024 1 1 Specialty Diagnoses / Procedures Referred By Contac t Referred To Contact Procedures Adult diet Elvi Schreiber MD [address] [place] [id number] Referral ID Status Reason Start Date Expiration Date V isits Requested Visits Authorized [id number] Pending Review 10/04/2023 10/03/2024 1 1 Specialty Diagnoses / Procedures Referred By Contac t Referred To Contact Radiology Diagnoses Rectal cancer (CMS-HCC) Procedures MR pelvis with and without contrast Mitra Crowell MD [address] [facility] [place] [address] Referral ID Status Reason Start Date Expiration Date V isits Requested Visits Authorized [id number] Pending Review 12/16/2023 12/15/2024 1 1 Specialty Diagnoses / Procedures Referred By Contac t Referred To Contact Diagnoses Esophagitis Procedures EGD Mary Kay Newell, MATERIAL HANDLER 2ND SHIFT-HELIARC WELDER [address] [address] Referral ID Status Reason Start Date Expiration Date V isits Requested Visits Authorized [id number] Pending Review 12/09/2023 12/08/2024 1 1 Specialty Diagnoses / Procedures Referred By Contac t Referred To Contact Procedures Wound care (specify) Brandon Carrillo MD [address] [place] [address] Referral ID Status Reason Start Date Expiration Date V isits Requested Visits Authorized [id number] Pending Review 12/28/2023 12/27/2024 1 1 Referral ID Status Reason Start Date Expiration Date V isits Requested Visits Authorized [id number] Pending Review 12/28/2023 12/27/2024 1 1 Specialty Diagnoses / Procedures Referred By Contac t Referred To Contact Procedures Adult diet Brandon Carrillo MD [address] [place] [address] Referral ID Status Reason Start Date Expiration Date V isits Requested Visits Authorized [id number] Pending Review 12/28/2023 12/27/2024 1 1 Summary Purpose Family History No Family History Records FoundNo Family History Records FoundNo Family History Records Found Additional Source Comments Care Teams (unrecognized sec tion and content) Hydrometeorologist Relationship Specialty Start Date End Date Carol Akins PA-C [facility] [place] [address] PCP - General Physician Oil Changer 09/19/23 Hydrometeorologist Relationship Specialty Start Date End Date Carol Akins PA-C [address] [place] [address] PCP - General Physician Oil Changer 09/19/23 Hydrometeorologist Relationship Specialty Start Date End Date Carol Akins PA-C [address] [place] [address] PCP - General Physician Oil Changer 09/19/23 Hydrometeorologist Relationship Specialty Start Date End Date Carol Akins PA-C [address] [place] [address] PCP - General Physician Oil Changer 09/19/23 Hydrometeorologist Relationship Specialty Start Date End Date Craol Akins PA-C [address] [place] [address] PCP - General Physician Oil Changer 09/19/23 Hydrometeorologist Relationship Specialty Start Date End Date Carol Akins PA-C [address] [place] [id number] PCP - General Physician Oil Changer 09/19/23 Hydrometeorologist Relationship Specialty Start Date End Date Carol Akins PA-C [address] [place] [id number] PCP - General Physician Oil Changer 09/19/23 Hydrometeorologist Relationship Specialty Start Date End Date Carol Akins PA-C [address] [place] [address] PCP - General Physician Oil Changer 09/19/23 Hydrometeorologist Relationship Specialty Start Date End Date Carol Akins PA-C [address] [place] [address] PCP - General Physician Oil Changer 09/19/23 Hydrometeorologist Relationship Specialty Start Date End Date Carol Akins PA-C [address] [place] [address] PCP - General Physician Oil Changer 09/19/23 Hydrometeorologist Relationship Specialty Start Date End Date Carol Akins PA-C [address] [place] [address] PCP - General Physician Oil Changer 09/19/23 Hydrometeorologist Relationship Specialty Start Date End Date Carol Akins PA-C [address] [place] [address] PCP - General Physician Oil Changer 09/19/23 Hydrometeorologist Relationship Specialty Start Date End Date Carol Akins PA-C [address] [place] [address] [id number] PCP - General Physician Oil Changer 09/19/23 Hydrometeorologist Relationship Specialty Start Date End Date Carol Akins PA-C [address] [place], [place] [id number] PCP - General Physician Oil Changer 09/19/23 Reason for Visit (unrecogniz ed section and content) Specialty Diagnoses / Procedures Referred By Contac t Referred To Contact Diagnoses Acute kidney injury ([facility]) Acute kidney injury Case, Tanner Cordero MD [address] [place] [address] Referral ID Status Reason Start Date Expiration Date Visits Re quested Visits Authorized [id number] 1 1 Reason Onset Date Comments Hospital Follow-up 11/13/2023 2-4 week foll ow up Reason Onset Date Comments Hospital Follow-up 11/25/2023 Reason Onset Date Comments Clearance 12/10/2023 Reason Onset Date Comments Hospital Follow-up 12/18/2023 2-4 week F/U Reason Comments Atrial Fibrillation Specialty Diagnoses / Procedures Referred By Contac t Referred To Contact Diagnoses Atrial fibrillation with RVR ([facility]) Abnormal heart rate Chronic wound infection of abdomen, initial encounter Septic shock ([facility]) Pneumonia of right upper lobe due to infectious organism Elevated troponin Zuri Herrera MD [address] [address] Referral ID Status Reason Start Date Expiration Date Visits Re quested Visits Authorized [id number] 1 1 Scheduled Active and Recently Administ [...] Schulte, ALONDRA)2100 (Due - Provider: Varsha Amaya [facility]) sodium citrate 4 % (3 [...] 8 hours. 0430 (Hold - Provider: Jenny Bob RN - Reason: Order parameters not met)1230 [...] THEN 0.9% Sodium Chloride 10 mL IVP. (rn advice: flush at beginning of each hemodialysis treatment). sodium chloride 0.9 % flush 10 mL 10 mL, intravenous, As needed, line care, Starting on 09/21/23 at 1111, Arterial Lumen. 0.9% Sodium Chloride 10 mL IVP THEN 4% sodium citrate (0.2 grams/5 mL) IVP equal to lumen volume after use. (rn advice: flush and change caps after each hemodialysis treatment) sodium chloride 0.9 % flush 10 mL 10 mL, intravenous, As needed, line care, Starting on 09/21/23 at 1111, Venous Lumen. Before use aspirate lumen and discard lumen volume THEN 0.9% Sodium Chloride 10 mL IVP. (rn advice: flush at beginning of each hemodialysis treatment) sodium chloride 0.9 % flush 10 mL 10 mL, intravenous, As needed, line care, Starting on 09/21/23 at 1111, Venous Lumen. 0.9% Sodium Chloride 10 mL IVP THEN 4% sodium citrate (0.2 grams/5 mL) IVP equal to lumen volume after use. (rn advice: flush and change caps after each hemodialysis [...] a maximum of 2 mL, after use. (rn advice: flush and change caps after each hemodialysis treatment) sodium citrate 4 % (3 mL) flush 2 mL 2 mL, intravenous, As needed, line care, Starting on 09/21/23 at 1111, Venous Lumen. IVP equal to lumen volume, up to a maximum of 2 mL, after use. (rn advice: flush and change caps after each hemodialysis [...] to maintain patency of lines, Starting on [place] 12/22/23 at 1559 sodium chloride 0.9 % radiology injection 80 mL, intravenous, Once in imaging, pre/post contrast, Starting on [place] 12/22/23 at 1424, For 1 dose, Additional Imaging Orders Linked Groups Order Group 1: potassium chloride (K-TAB,KLOR-CON) CR tablet 40 mEqJump to med 40 mEq, oral, As needed, potassium supplementation, Starting on [place] 12/22/23 at 1722, Progress to oral potassium [...] oral, As needed, potassium supplementation, Starting on [place] 12/22/23 at 1722, Progress to oral potassium [...] section and content) DATE CREATED AUTHOR 10/27/2023 [facility] DATE CREATED AUTHOR AUTHOR'S ORGANIZ ATION 01/02/2024 [facility] DATE CREATED AUTHOR AUTHOR'S ORGANIZ ATION 02/18/2024 [facility] FOR RECORDS PERTAINING TO PATIENTS WHO ARE [...] BE BASED ON THE PRIMARY CLINICAL RECORDS. [facility]. provides no warranty or guarantee of the accuracy or completeness of information in this document.
[2024-02-24 22:18] LABS: Glucometer 142 mg/dL (74-106)
[2024-02-24] MEDS: ATORVASTATIN CALCIUM 40 MG TABLET PO (22:30)
[2024-02-24] MEDS: OXYCODONE HCL 5 MG TABLET PO (22:30)
[2024-02-24] MEDS: ACETAMINOPHEN 325 MG TABLET 650 MG PO (22:30)
[2024-02-25] VITALS (76 sets, daily range): BP systolic 78–114; BP diastolic 57–90; PULSE 80–125; TEMP 36.6–36.9; O2SAT 93–98
[2024-02-25 04:22] LABS: Basophils Percent Auto 0.4 % (0.2-2.0); Eosinophils Absolute Auto 0.1 10^3/uL (0.0-0.7); Eosinophils Percent Auto 1.4 % (0.9-7.0); Hemoglobin 7.2 g/dL (12.0-16.0); Immature Granulocytes Abs Auto 0.03 10^3/uL (0.00-0.03); Immature Granulocytes Pct Auto 0.3 % (0.0-0.5); Lymphocytes Percent Auto 20.8 % (20.5-60.0); Mean Corpuscular HGB Conc 30.5 g/dL (29.9-35.2); Mean Corpuscular Hemoglobin 29.3 pg (26.7-34.0); Mean Corpuscular Volume 95.9 fL (81.0-99.0); Mean Platelet Volume 11.3 fL (9.5-13.5); Monocytes Absolute Auto 0.9 10^3/uL (0.3-0.8); Monocytes Percent Auto 9.7 % (1.7-12.0); Neutrophils Absolute Auto 6.4 10^3/uL (1.4-6.5); Neutrophils Percent Auto 67.4 % (43.0-75.0); Platelet Count 110 10^3/uL (150-450); Red Blood Count 2.46 10^6/uL (4.20-5.40); Red Cell Distribution Width 16.7 % (11.0-15.0); White Blood Count 9.5 10^3/uL (4.0-11.0)
[2024-02-25 04:39] LABS: Anion Gap 11.8; BUN Creatinine Ratio 15.8; Calcium 7.7 mg/dL (8.5-10.1); Carbon Dioxide 27.2 mmol/L (21.0-32.0); Chloride 104 mmol/L (98-107); Estimated GFR (African America 35 (>=60); Estimated GFR (Non-African Ame 29 (>=60); Glucose 81 mg/dL (74-106); Sodium 139 mmol/L (136-145); Troponin I High Sensitivity 26.9 pg/mL (4.0-51.3)
[2024-02-25 04:47] LABS: Hematocrit 23.6 % (36.0-48.0)
[2024-02-25] MEDS: MULTIVITAMIN TABLET 1 TAB PO (08:18)
[2024-02-25] MEDS: METOPROLOL TARTRATE 100 MG TABLET PO ×2 (08:18→22:02)
[2024-02-25] MEDS: ZINC GLUCONATE 50 MG TABLET PO (08:19)
[2024-02-25] MEDS: MIDODRINE HCL 5 MG TABLET PO ×3 (08:19→16:58)
[2024-02-25] MEDS: SERTRALINE HCL 50 MG TABLET PO (08:19)
[2024-02-25] MEDS: TAMSULOSIN HCL 0.4 MG CAPSULE 0.400000000000000022 MG PO (08:19)
[2024-02-25] MEDS: ASCORBIC ACID 500 MG TABLET PO ×2 (08:19→22:01)
[2024-02-25] MEDS: OMEPRAZOLE 20 MG CAPSULE.DR PO (08:19)
[2024-02-25] MEDS: FERROUS SULFATE 325 MG TABLET PO ×2 (08:19→22:02)
[2024-02-25] MEDS: INSULIN DETEMIR 300 UNIT/3 ML INSULN.PEN 10 UNIT SUBQ ×2 (08:33→22:03)
--- NOTE | 2024-02-25 08:34 | W.PM.WC ---
Wound Consult Note Assessment and Plan (1) Pressure ulcer, sacrum: Qualifiers: Pressure injury stage: pressure injury of deep tissue Qualified Code(s): L89.156 - Pressure-induced deep tissue damage of sacral region Plan Consult: Coccyx ulcer/abdominal wound Patient seen today for evaluation of abdominal wound and coccyx ulcer. Patient admitted due to afib. States she is feeling better and having no pain. Does complain of itching to coccyx area. Abdominal wound is dried over with old collagen. Old dressing removed to show pale pink, smooth wound bed. Two open areas noted. Applied medihoney gel to this area and covered with gauze. Entire area measures 8.3cmx1.3cmx0.1cm. No signs of infection. Colostomy with pouch intact. Brown loose stool noted. Stoma pink and moist. Coccyx ulcer with moderate amount of yellow/green serosang drainage noted. Faint odor. Once cleansed, no odor noted. Wound bed with pink/red, bleeds easily with some adherent slough < 15% noted to the depth. Overall measurements [id number]. This measurement is positional due to where wound is located. No acute infection noted. Recommendations: Dakins moistened gauze to coccyx daily. Cover with ABD pad. Medihoney gel to abdominal wound daily. Cover with gauze. Reposition frequently. Photo taken and orders placed. Please call [phone] if any questions or concerns. Galileo Choudhury, PASCUALN, RN, CWON
--- NOTE | 2024-02-25 08:36 | P.HP_ITS ---
HPI H&P: HPI History of Present Illness Chief complaint: Afib with RVR SOB Narrative: This is a 68-year-old woman past medical history paroxysmal atrial fibrillation, prior history of atypical flutter status post ablation in 2021, history of coronary artery disease that was nonobstructive by cardiac catheterization in 2020, chronic systolic heart failure with last ejection fraction around 40%, adenocarcinoma of the rectum, chronic sacral decubitus ulcer and sacral osteomyelitis, history of GI bleed requiring exploratory laparotomy, laparotomy with small bowel resection and colostomy creation in September 2023, who now has indwelling Dasilva Catheter. She has not been maintained on anticoagulation therapy due to bleeding. Also with GERD, Diabetes, hypotension, HLD. The patient was admitted recently to [facility] with sepsis (sacral wounds) and atrial fibrillation with rapid ventricular response and was placed at [facility] for acute rehab after this hospital stay. She was last admitted here on 02/04/24 where cardiology also seen her for hypotens ion and Afib with RVR and made several recommendations of increasing medications including Cardizem. She was sent from the [facility] last night for shortness of breath and tachycardia. ER findings: chest x-ray shows cardiomegaly without significant pulmonary edema and she is breathing easily in the ER maintaining room air oxygen saturation, She was treated for the A-fib with RVR with IV Cardizem. She maintained her blood pressure after the IV Cardizem but her heart rate remained in the low 100s. She was started on a Cardizem drip at 5 and transferred to the ICU/hospitalist for further plan of care. Resp panel negative. At the time of admission exam, patient had been on Cardizem 5mg overnight. She is on oral Cardizem at home but 180mg daily and cardiology recommended increase to 240mg last consult. She also takes metoprolol 100mg BID. Overnight hospitalist placed her on therapeutic Lovenox and her HB is maintaining at 7.7. I have stopped the drip and placed her on oral Cardizem 240mg daily. Her proBNP was elevated 61656 even elevated for her. Her oxygen saturations have been maintaining and she denies shortness of breath or chest pain. I have placed her on Bumex 2mg BID IV today as she also has some lower ext edema. Troponin was normal range. She has appointment tomorrow with Colorectal Surgeon at [facility] and a Cardiology appt this already scheduled. She overall feels improved since last night and has no new complaints. Opioid HPI Opioid Management Most Recent Opioid Data: Last Pain Scale 0 02/25/24 00:05 Last Pain Assessment 02/25/24 12:00 Last MAR Pain Assessment 02/25/24 00:05 Last ORT Total Score 0 02/24/24 20:48 Last ORT Risk Category Low Risk 02/24/24 20:48 Review of Systems ROS Narrative ROS: a complete review of systems were reviewed with patient and are positive as below or listed in History of Chief Complaint. General: no fever, chills, night sweats Head: no headache, trauma, visual changes, nausea or vomiting Skin: chronic sacral wounds Eyes: no blurriness of vision Ears: no reported hearing loss, vertigo, earache, or tinnitus Throat: no sore throat, hoarseness, swelling of neck, or tongue pain Heart: no chest pain Lungs: slight shortness of breath no cough GI: no diarrhea or vomiting/nausea Urinary: no urinary urgency, frequency or pain, indwelling dasilva Neuro: no numbness or tingling HEM: bleeding issues and bruising ENDO: no thyroid problems Psych: no anxiety but depression [facility] Medical History (Updated 02/25/24 @ 13:03 by Mandi Gracia DO) Atrial flutter with rapid ventricular response ?I48.92 - Unspecified atrial flutter (ICD-10) Acute on chronic blood loss anemia ?D62 - Acute posthemorrhagic anemia (ICD-10) Rectal bleed ?K62.5 - Hemorrhage of anus and rectum (ICD-10) Adenocarcinoma of rectum ?C20 - Malignant neoplasm of rectum (ICD-10) Adenocarcinoma of rectum ?C20 - Malignant neoplasm of rectum (ICD-10) GERD (gastroesophageal reflux disease) ?K21.9 - Gastro-esophageal reflux disease without esophagitis (ICD-10) CHF (congestive heart failure) ?I50.9 - Heart failure, unspecified (ICD-10) Depression ?F32.A - Depression, unspecified (ICD-10) Closed head injury ?S09.90XA - Unspecified injury of head, initial encounter (ICD-10) Post concussion syndrome ?F07.81 - Postconcussional syndrome (ICD-10) Neck pain ?M54.2 - Cervicalgia (ICD-10) Osteomyelitis of vertebra, sacral and sacrococcygeal region ?M46.28 - Osteomyelitis of vertebra, sacral and sacrococcygeal region (ICD- 10) GI hemorrhage ?K92.2 - Gastrointestinal hemorrhage, unspecified (ICD-10) Pressure ulcer, sacrum ?L89.159 - Pressure ulcer of sacral region, unspecified stage (ICD-10) Chronic a-fib ?I48.20 - Chronic atrial fibrillation, unspecified (ICD-10) CKD (chronic kidney disease) stage 3, GFR 30-59 ml/min ?N18.30 - Chronic kidney disease, stage 3 unspecified (ICD-10) DM2 (diabetes mellitus, type 2) ?E11.9 - Type 2 diabetes mellitus without complications (ICD-10) Hyperlipidemia ?E78.5 - Hyperlipidemia, unspecified (ICD-10) Essential hypertension ?I10 - Essential (primary) hypertension (ICD-10) HFrEF (heart failure with reduced ejection fraction) ?I50.20 - Unspecified systolic (congestive) heart failure (ICD-10) MDD (major depressive disorder) ?F32.9 - Major depressive disorder, single episode, unspecified (ICD-10) Muscle wasting and atrophy, not elsewhere classified, multiple sites ?M62.59 - Muscle wasting and atrophy, not elsewhere classified, multiple sites (ICD-10) Surgical History Colostomy in place ?Z93.3 - Colostomy status (ICD-10) Family History Father Family history of myocardial infarction Family history of hypertension Mother Family history of CHF (congestive heart failure) Family history of cancer Family history of hypertension Grandmother Family history of diabetes mellitus Family history of hypertension Social History Within the past year, how often did you have a drink containing alcohol: never Within the past year, how often did you have six or more drinks on one occasion: never Score interpretation: A score less than 3 is consistent with normal alcohol consumption. Smoking status: Former smoker Non-prescribed substance use: denies use Previous occupational history: retired Highest level of school completed/degree received: high school graduate Are you now , , , , never or living with a partner: In a typical week, how many times do you talk on the telephone with family, friends, or neighbors: 3 or more times per week How often do you get together with friends or relatives: 3 or more times per week How often do you attend jehovah's witness or orthodox services: 4 or more times per year Do you belong to any clubs or organizations such as jehovah's witness groups unions, [employer] or athletic groups, or school groups: no Total score: 3 Score interpretation: A score of greater than or equal to 2 indicates the lowest level of social isolation. Little interest or pleasure in doing things: not at all Feeling down, depressed, or hopeless: not at all Feel stressed/tense/nervous/anxious/difficulty sleeping: not at all Do you think of yourself as: straight/heterosexual Gender Identity: female Meds Home Medications and Allergies Home Medications ?Medication ?Instructions ?Recorded ?Confirmed ?Type acetaminophen 500 mg capsule 1,000 mg PO Q6H PRN fever or pain 02/02/24 02/24/24 History ascorbic acid (vitamin C) 500 mg 500 mg PO BID 02/02/24 02/24/24 History chewable tablet (Acerola C) atorvastatin 40 mg tablet 40 mg PO .QHS 02/02/24 02/24/24 History bumetanide 2 mg tablet 2 mg PO DAILY 02/02/24 02/24/24 History diltiazem HCl 180 mg 180 mg PO DAILY 02/02/24 02/24/24 History capsule,extended release 24 hr (Cardizem CD) ergocalciferol (vitamin D2) 1,250 50,000 unit PO QWEEK 02/02/24 02/24/24 History mcg (50,000 unit) capsule ferrous sulfate 325 mg (65 mg 325 mg PO BID 02/02/24 02/24/24 History iron) tablet (FeroSul) insulin aspart U-100 100 unit/mL 4 - 14 sliding scale dose subcut 02/02/24 02/24/24 History (3 mL) subcutaneous pen (Novolog ACHS FlexPen U-100 Insulin aspart) insulin glargine 100 unit/mL (3 10 unit subcut BID 02/02/24 02/24/24 History mL) subcutaneous pen metoprolol tartrate 100 mg tablet 100 mg PO BID 02/02/24 02/24/24 History (Lopressor) midodrine 5 mg tablet 5 mg PO TIDWM 02/02/24 02/24/24 History multivitamin (Daily Multi-Vitamin 1 tab PO DAILY 02/02/24 02/24/24 History tablet) ondansetron HCl 4 mg tablet 4 mg PO Q6H PRN nausea and vomiting 02/02/24 History oxycodone 5 mg tablet 5 mg PO Q6H PRN pain 02/02/24 02/24/24 History pantoprazole 20 mg tablet,delayed 20 mg PO DAILY 02/02/24 02/24/24 History release potassium chloride 20 mEq oral 20 meq PO DAILY 02/02/24 02/24/24 History packet (Klor-Con) sertraline 50 mg tablet (Zoloft) 50 mg PO DAILY 02/02/24 02/24/24 History tamsulosin 0.4 mg capsule (Flomax) 0.4 mg PO DAILY 02/02/24 02/24/24 History zinc sulfate 50 mg zinc (220 mg) 50 mg PO DAILY 02/02/24 02/24/24 History capsule magnesium oxide 800 mg PO TID 02/04/24 02/24/24 History polyethylene glycol 3350 17 gram 17 g PO DAILY PRN constipation 02/04/24 02/24/24 History oral powder packet (Miralax) Allergies Allergy/AdvReac Type Severity Reaction Status Date / Time oats AdvReac Unknown Verified 02/02/24 16:53 artificial sweetners AdvReac Severe Migraine Uncoded 02/24/24 20:32 Exam Narrative Exam Narrative: General: Patient is alert, and oriented to person, place and time with normal affect, proper hygiene Skin: small open sore on the abdomen from colectomy scar but no infection noted, please see wound nurse documentation of the sacral wounds. Head: atraumatic, acephalic Eyes: PERRLA, no nystagmus present, conjunctiva clear, no scleral icterus Ears: normal Tympanic Membrane, normal gross auditory acuity Nose: symmetric, no discharge, no maxillary or frontal sinus tenderness Mouth/Throat: no erythema, exudate, or tonsillar enlargement, normal dentition Heart: irregular rate and rhythm, no murmurs/rubs/gallops Lungs: no audible wheezes, crackles and normal breath sounds all lung vega Abdomen: no distension colostomy present with stool in the bag. Musculoskeletal: +1 swelling bilateral lower extremities Neuro: CN II-X grossly intact Constitutional Vital Signs, click to edit/add: Last Vital Signs Temp 97.8 F 02/25/24 07:00 Pulse 119 H 02/25/24 08:01 Resp 19 02/25/24 08:01 BP 114/85 02/25/24 08:19 Pulse Ox 93 L 02/25/24 08:01 O2 Del Method Room Air 02/25/24 07:00 Results Labs Labs: Short CBC 02/24/24 02/25/24 Range/Units 15:59 03:45 WBC 12.6 H 9.5 (4.0-11.0) 10^3/uL Hgb 8.1 L 7.2 L (12.0-16.0) g/dL Hct 26.9 L 23.6 L* (36.0-48.0) % Plt Count 132 L 110 L (150-450) 10^3/uL BMP 02/24/24 02/25/24 15:59 03:45 Sodium 139 139 Potassium 4.5 4.0 Chloride 103 104 Carbon Dioxide 26.6 27.2 BUN 28.0 H 28.0 H Creatinine 1.68 H 1.77 H Glucose 76 81 Calcium 8.0 L 7.7 L Liver Function 02/24/24 Range/Units 15:59 Total Bilirubin 0.8 (0.2-1.0) mg/dL AST 28 (15-37) U/L ALT 16 (14-59) U/L Alkaline Phosphatase 169 H (46-116) U/L Albumin 2.5 L (3.4-5.0) g/dL ABG ABG results: 02/24/24 15:59 VBG pH 7.434 H VBG pCO2 39.2 L Assessment and Plan Assessment and Plan (1) Atrial fibrillation with rapid ventricular response: Assessment and Plan: This is a chronic issue, I think this would best managed with titration of oral medications. I have increased Cardizem from 180 to 340mg daily. Will continue her on Metoprolol 100 BID. I have cardiology consult today to see if any additional measures need to be taken. She has not previously been anticoagulated due to bleeding, and maybe would benefit from at least daily aspirin. I will leave this decision to Cardiology team. (2) CHF (congestive heart failure): Assessment and Plan: There has been in increase in proBNP, slight edema lower ext on exam and symptom of shortness of breath on admission but not hypoxic and no pulmonary edema on chest xray, Takes bumex 2mg daily, I have placed on Bumex 2mg IV BID for now. Monitor strict I&O's. Qualifiers: Heart failure type: combined systolic and diastolic Heart failure chronicity: acute on chronic Qualified Code(s): I50.43 - Acute on chronic combined systolic (congestive) and diastolic (congestive) heart failure (3) Pressure ulcer, sacrum: Assessment and Plan: wound consult while here and she follows with them at nursing facility Qualifiers: Pressure injury stage: pressure injury of deep tissue Qualified Code(s): L89.156 - Pressure-induced deep tissue damage of sacral region (4) CKD (chronic kidney disease) stage 3, GFR 30-59 ml/min: Assessment and Plan: monitor, Cr was 1.77 Qualifiers: Chronic kidney disease stage 3 subtype: stage 3a (GFR 45-59) Qualified Code(s): N18.31 - Chronic kidney disease, stage 3a (5) DM2 (diabetes mellitus, type 2): Assessment and Plan: continue home medications Qualifiers: Diabetes mellitus custodial insulin use: without buttermaker continuous churn use Diabetes mellitus complication status: with kidney complications Diabetes mellitus c omplication detail: with chronic kidney disease Chronic kidney disease stage: stage 3 (moderate) Chronic kidney disease stage 3 subtype: stage 3a (GFR 45-59) Qualified Code(s): E11.22 - Type 2 diabetes mellitus with diabetic chronic kidney disease; N18.31 - Chronic kidney disease, stage 3a (6) Hyperlipidemia: Assessment and Plan: continue home medications Qualifiers: Hyperlipidemia type: unspecified Qualified Code(s): E78.5 - Hyperlipidemia, unspecified (7) Essential hypertension: Assessment and Plan: more chronic hypotension, takes midodrine (8) MDD (major depressive disorder): Assessment and Plan: continue home meds Qualifiers: Major depression recurrence: recurrent Active/Remission status: in full remission Qualified Code(s): F33.42 - Major depressive disorder, recurrent, in full remission (9) GERD (gastroesophageal reflux disease): Assessment and Plan: continue home meds Qualifiers: Esophagitis presence: without esophagitis Qualified Code(s): K21.9 - Gastro-esophageal reflux disease without esophagitis (10) Acute on chronic blood loss anemia: Assessment and Plan: sounds like patient has had extensive work up, required blood transfusions in the past, has been avoiding anti-coag for this reason, patient reports previously on coumadin. HB stable 7.7 currently on Lovenox so will monitor closely. Plan patient is a full code Lovenox for DVT prophylaxis patient is in observation status and not expected to cross 2 midnights; Cards consult today, Hopeful discharge back to nursing facility since most problems seem to be recurring/chronic and she has close outpatient follow up. Urinary Catheter Management Urinary Catheter Management Urethral: Cath placed during this visit: no
[2024-02-25] MEDS: BUMETANIDE 1 MG/4 ML VIAL 2 MG IVP ×2 (09:07→21:57)
[2024-02-25] MEDS: DILTIAZEM HCL 240 MG CAP.ER.24H PO (09:07)
[2024-02-25 11:13] LABS: Hemoglobin 7.7 g/dL (12.0-16.0)
--- NOTE | 2024-02-25 11:23 | CM.NOTE ---
Rounds made with Dr. Gracia, awaiting cardiology to see pt for further recommendations. Pt will discharge home this afternoon unless Cardiology feels pt would need to stay for medication adjustment. Pt is off cardizem drip and changed over to P.O. PT and OT will also evaluate pt for discharge planning. Pt came from [facility] and does plan on returning back to [place] for therapy.
[2024-02-25 11:52] LABS: Glucometer 161 mg/dL (74-106)
[2024-02-25] MEDS: INSULIN ASPART 300 UNIT/3 ML PEN SUBQ ×3 (11:55→22:05)
--- NOTE | 2024-02-25 12:06 | CM.NOTE ---
Medicare Outpatient Observation Notice discussed with pt, pt verbaizes understanding and signs paper. Original given to pt and copy placed on pt's chart.
--- NOTE | 2024-02-25 12:08 | SWNOTE1 ---
MARILOU spoke to Tierney at [facility] and pt is still there skilled. MARILOU sent over updates to [facility] including ER note, physician notes, labs, vitals, diagnostic imaging, OT notes, med list, and case management report. MARILOU spoke to pt and she voiced she is happy with the care at the [facility]. Pt's plan is to return to [facility] once she is medically stable for discharge.
--- NOTE | 2024-02-25 13:57 | SWNOTE1 ---
SW took packet to ICU and let Erskine know pt may possibly dc after cardiology consult.
--- NOTE | 2024-02-25 16:02 | P.CACN_ITS ---
History of Present Illness History of Present Illness Consult date: 02/25/24 Consult reason: atrial fibrillation Chief complaint: Afib with RVR SOB Narrative: Per recent Cardiology Consult with Dr Fisher: (02/05/2024) This is a 68-year-old woman with very complex medical history. This includes paroxysmal atrial fibrillation, prior history of atypical flutter status post ablation in 2021, history of coronary artery disease that was nonobstructive by cardiac catheterization in 2020, chronic systolic heart failure with last ejection fraction around 40%, adenocarcinoma of the rectum, chronic sacral decubitus ulcer and sacral osteomyelitis, history of GI bleed requiring exploratory laparotomy laparotomy with small bowel resection and colostomy creation in September 2023. The patient was admitted recently to [facility] with sepsis and atrial fibrillation with rapid ventricular response. She was treated with intravenous antibiotics. At that time she had mild elevation of troponin and she was managed medically. Given her overall comorbidities and severe acute renal insufficiency requiring hemodialysis it was decided not to pursue additional cardiac catheterization or coronary CTA for assessment of the coronaries. During that admission she required transfusion of blood and anticoagulation was held. She was discharged to [facility]. She is now readmitted to the [facility] with rectal bleeding, atrial fibrillation with rapid ventricular response as well as shortness of breath and lower extremity edema. She has been managed with diuretic therapy. One of the main issues is low blood pressure and elevated heart rate. She has not been maintained on anticoagulation therapy due to bleeding. She currently says that she feels better. Her breathing is improved. She does not have chest pain. She has significant lower extremity edema. 02/25/2024 -Per Hospitalist Dr Gracia's note: She was sent from the [place] last night for shortness of breath and tachycardia. ER findings: chest x-ray shows cardiomegaly without significant pulmonary edema and she is breathing easily in the ER maintaining room air oxygen saturation, She was treated for the A-fib with RVR with IV Cardizem. She maintained her blood pressure after the IV Cardizem but her heart rate remained in the low 100s. She was started on a Cardizem drip at 5 and transferred to the ICU/hospitalist for further plan of care. Resp panel negative. At the time of admission exam, patient had been on Cardizem 5mg overnight. She is on oral Cardizem at home but 180mg daily and cardiology recommended increase to 240mg last consult. She also takes metoprolol 100mg BID. Overnight hospitalist placed her on therapeutic Lovenox and her HB is maintaining at 7.7. I have stopped the drip and placed her on oral Cardizem 240mg daily. Her proBNP was elevated [id number] even elevated for her. Her oxygen saturations have been maintaining and she denies shortness of breath or chest pain. I have placed her on Bumex 2mg BID IV today as she also has some lower ext edema. Troponin was normal range. She has appointment tomorrow with Colorectal Surgeon at [facility] [place] and a Cardiology appt this already scheduled. She overall feels improved since last night and has no new complaints. Currently; feels better, less palpitations, no chest pain, no obvious blood in urine or stools. Scheduled to see [facility] tomorrow per her description. Review of Systems ROS Status of ROS 10 or more systems reviewed and unremark able except as noted in history and below [facility] Medical History (Updated 02/25/24 @ 13:03 by Mandi Gracia DO) Atrial flutter with rapid ventricular response ?I48.92 - Unspecified atrial flutter (ICD-10) Acute on chronic blood loss anemia ?D62 - Acute posthemorrhagic anemia (ICD-10) Rectal bleed ?K62.5 - Hemorrhage of anus and rectum (ICD-10) Adenocarcinoma of rectum ?C20 - Malignant neoplasm of rectum (ICD-10) Adenocarcinoma of rectum ?C20 - Malignant neoplasm of rectum (ICD-10) GERD (gastroesophageal reflux disease) ?K21.9 - Gastro-esophageal reflux disease without esophagitis (ICD-10) CHF (congestive heart failure) ?I50.9 - Heart failure, unspecified (ICD-10) Depression ?F32.A - Depression, unspecified (ICD-10) Closed head injury ?S09.90XA - Unspecified injury of head, initial encounter (ICD-10) Post concussion syndrome ?F07.81 - Postconcussional syndrome (ICD-10) Neck pain ?M54.2 - Cervicalgia (ICD-10) Osteomyelitis of vertebra, sacral and sacrococcygeal region ?M46.28 - Osteomyelitis of vertebra, sacral and sacrococcygeal region (ICD- 10) GI hemorrhage ?K92.2 - Gastrointestinal hemorrhage, unspecified (ICD-10) Pressure ulcer, sacrum ?L89.159 - Pressure ulcer of sacral region, unspecified stage (ICD-10) Chronic a-fib ?I48.20 - Chronic atrial fibrillation, unspecified (ICD-10) CKD (chronic kidney disease) stage 3, GFR 30-59 ml/min ?N18.30 - Chronic kidney disease, stage 3 unspecified (ICD-10) DM2 (diabetes mellitus, type 2) ?E11.9 - Type 2 diabetes mellitus without complications (ICD-10) Hyperlipidemia ?E78.5 - Hyperlipidemia, unspecified (ICD-10) Essential hypertension ?I10 - Essential (primary) hypertension (ICD-10) HFrEF (heart failure with reduced ejection fraction) ?I50.20 - Unspecified systolic (congestive) heart failure (ICD-10) MDD (major depressive disorder) ?F32.9 - Major depressive disorder, single episode, unspecified (ICD-10) Muscle wasting and atrophy, not elsewhere classified, multiple sites ?M62.59 - Muscle wasting and atrophy, not elsewhere classified, multiple sites (ICD-10) Surgical History Colostomy in place ?Z93.3 - Colostomy status (ICD-10) Family History Father Family history of myocardial infarction Family history of hypertension Mother Family history of CHF (congestive heart failure) Family history of cancer Family history of hypertension Grandmother Family history of diabetes mellitus Family history of hypertension Social History Within the past year, how often did you have a drink containing alcohol: never Within the past year, how often did you have six or more drinks on one occasion: never Score interpretation: A score less than 3 is consistent with normal alcohol consumption. Smoking status: Former smoker Non-prescribed substance use: denies use Previous occupational history: retired Highest level of school completed/degree received: high school graduate Are you now , , , , never or living with a partner: In a typical week, how many times do you talk on the telephone with family, friends, or neighbors: 3 or more times per week How often do you get together with friends or relatives: 3 or more times per week How often do you attend anabaptist or pentecostal services: 4 or more times per year Do you belong to any clubs or organizations such as anabaptist groups unions, fraternal or athletic groups, or school groups: no Total score: 3 Score interpretation: A score of greater than or equal to 2 indicates the lowest level of social isolation. Little interest or pleasure in doing things: not at all Feeling down, depressed, or hopeless: not at all Feel stressed/tense/nervous/anxious/difficulty sleeping: not at all Do you think of yourself as: straight/heterosexual Gender Identity: female Meds Home Medications and Allergies Home Medications ?Medication ?Instructions ?Recorded ?Confirmed ?Type acetaminophen 500 mg capsule 1,000 mg PO Q6H PRN fever or pain 02/02/24 02/24/24 History ascorbic acid (vitamin C) 500 mg 500 mg PO BID 02/02/24 02/24/24 History chewable tablet (Acerola C) atorvastatin 40 mg tablet 40 mg PO .QHS 02/02/24 02/24/24 History bumetanide 2 mg tablet 2 mg PO DAILY 02/02/24 02/24/24 History diltiazem HCl 180 mg 180 mg PO DAILY 02/02/24 02/24/24 History capsule,extended release 24 hr (Cardizem CD) ergocalciferol (vitamin D2) 1,250 50,000 unit PO QWEEK 02/02/24 02/24/24 History mcg (50,000 unit) capsule ferrous sulfate 325 mg (65 mg 325 mg PO BID 02/02/24 02/24/24 History iron) tablet (FeroSul) insulin aspart U-100 100 unit/mL 4 - 14 sliding scale dose subcut 02/02/24 02/24/24 History (3 mL) subcutaneous pen (Novolog ACHS FlexPen U-100 Insulin aspart) insulin glargine 100 unit/mL (3 10 unit subcut BID 02/02/24 02/24/24 History mL) subcutaneous pen metoprolol tartrate 100 mg tablet 100 mg PO BID 02/02/24 02/24/24 History (Lopressor) midodrine 5 mg tablet 5 mg PO TIDWM 02/02/24 02/24/24 History multivitamin (Daily Multi-Vitamin 1 tab PO DAILY 02/02/24 02/24/24 History tablet) ondansetron HCl 4 mg tablet 4 mg PO Q6H PRN nausea and vomiting 02/02/24 02/24/24 History oxycodone 5 mg tablet 5 mg PO Q6H PRN pain 02/02/24 02/24/24 History pantoprazole 20 mg tablet,delayed 20 mg PO DAILY 02/02/24 02/24/24 History release potassium chloride 20 mEq oral 20 meq PO DAILY 02/02/24 02/24/24 History packet (Klor-Con) sertraline 50 mg tablet (Zoloft) 50 mg PO DAILY 02/02/24 02/24/24 History tamsulosin 0.4 mg capsule (Flomax) 0.4 mg PO DAILY 02/02/24 02/24/24 History zinc sulfate 50 mg zinc (220 mg) 50 mg PO DAILY 02/02/24 02/24/24 History capsule magnesium oxide 800 mg PO TID 02/04/24 02/24/24 History polyethylene glycol 3350 17 gram 17 g PO DAILY PRN constipation 02/04/24 02/24/24 History oral powder packet (Miralax) Allergies Allergy/AdvReac Type Severity Reaction Status Date / Time oats AdvReac Unknown Verified 02/02/24 16:53 artificial sweetners AdvReac Severe Migraine Uncoded 02/24/24 20:32 Exam Constitutional Vital Signs, click to edit/add: Last Vital Signs Temp 97.8 F 02/25/24 07:00 Pulse 108 H 02/25/24 14:00 Resp 19 02/25/24 08:01 BP 114/85 02/25/24 08:19 Pulse Ox 93 L 02/25/24 08:01 O2 Del Method Room Air 02/25/24 07:00 Results Labs and Meds Lab results: Cardiac Enzymes 02/24/24 Range/Units 15:59 AST 28 (15-37) U/L Coagulation 02/24/24 Range/Units 15:59 PT 11.9 H (9.0-11.6) sec CBC 02/24/24 02/25/24 02/25/24 Range/Units 15:59 03:45 11:00 WBC 12.6 H 9.5 (4.0-11.0) 10^3/uL RBC 2.77 L 2.46 L (4.20-5.40) 10^6/uL Hgb 8.1 L 7.2 L 7.7 L (12.0-16.0) g/dL Hct 26.9 L 23.6 L* 25.0 L (36.0-48.0) % Plt Count 132 L 110 L (150-450) 10^3/uL Neut # (Auto) 9.7 H 6.4 (1.4-6.5) 10^3/uL Lymph # (Auto) 1.6 2.0 (1.2-3.8) 10^3/uL Burnet # (Auto) 1.1 H 0.9 H (0.3-0.8) 10^3/uL Eos # (Auto) 0.1 0.1 (0.0-0.7) 10^3/uL Baso # (Auto) 0.0 0.0 (0.0-0.1) 10^3/uL Comprehensive Metabolic Panel 02/24/24 02/25/24 Range/Units 15:59 03:45 Sodium 139 139 (136-145) mmol/L Potassium 4.5 4.0 (3.5-5.1) mmol/L Chloride 103 104 (98-107) mmol/L Carbon Dioxide 26.6 27.2 (21.0-32.0) mmol/L BUN 28.0 H 28.0 H (7.0-18.0) mg/dL Creatinine 1.68 H 1.77 H (0.55-1.02) mg/dL Glucose 76 81 (74-106) mg/dL Calcium 8.0 L 7.7 L (8.5-10.1) mg/dL AST 28 (15-37) U/L ALT 16 (14-59) U/L Alkaline Phosphatase 169 H (46-116) U/L Total Protein 6.9 (6.4-8.2) g/dL Albumin 2.5 L (3.4-5.0) g/dL Intake and Output 02/25/24 02/25/24 02/25/24 07:59 15:59 23:59 Intake Total 69.25 / 69.25 Output Total 500 / 500 Balance -500 / 5.75 69.25 / 69.25 Intake: IV 69.25 / 69.25 dilTIAZem HCL 125 mg In 0.9 % 69.25 / 69.25 Sodium Chloride 100 ml @ 5 MG/ HR 5 mls/hr IV TITR ONE Rx#: [id number] Output: Urine 200 / 200 Urine Amount (Catheter) 300 / 300 Urethral 300 / 300 HsTrop nml, Pro NT BNP elevated Imaging and Cardiology ECG results: other (Pat Name: HARRIS CASTREJON Department: Room: - Gender: Female 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: : 1955 Requested By: [id number] Order Number: [id number] Michelle MD: ROMINA BRISENO ) Assessment and Plan Assessment and Plan (1) Atrial fibrillation with rapid ventricular response: (2) CHF (congestive heart failure): Qualifiers: Heart failure type: combined systolic and diastolic Heart failure chronicity: acute on chronic Qualified Code(s): I50.43 - Acute on chronic combined systolic (congestive) and diastolic (congestive) heart failure (3) Pressure ulcer, sacrum: Qualifiers: Pressure injury stage: pressure injury of deep tissue Qualified Code(s): L89.156 - Pressure-induced deep tissue damage of sacral region (4) CKD (chronic kidney disease) stage 3, GFR 30-59 ml/min: Qualifiers: Chronic kidney disease stage 3 subtype: stage 3a (GFR 45-59) Qualified Code(s): N18.31 - Chronic kidney disease, stage 3a (5) DM2 (diabetes mellitus, type 2): Qualifiers: Diabetes mellitus intermediate accountant insulin use: without jail use Diabetes mellitus complication status: with kidney complications Diabetes mellitus complication detail: with chronic kidney disease Chronic kidney disease stage: stage 3 (moderate) Chronic kidney disease stage 3 subtype: stage 3a (GFR 45-59) Qualified Code(s): E11.22 - Type 2 diabetes mellitus with diabetic chronic kidney disease; N18.31 - Chronic kidney disease, stage 3a (6) Hyperlipidemia: Qualifiers: Hyperlipidemia type: unspecified Qualified Code(s): E78.5 - Hyperlipidemia, unspecified (7) Essential hypertension: (8) MDD (major depressive disorder): Qualifiers: Major depression recurrence: recurrent Active/Remission status: in full remission Qualified Code(s): F33.42 - Major depressive disorder, recurrent, in full remission (9) GERD (gastroesophageal reflux disease): Qualifiers: Esophagitis presence: without esophagitis Qualified Code(s): K21.9 - Gastro-esophageal reflux disease without esophagitis (10) Acute on chronic blood loss anemia: Plan The patient's tachycardia is likely being triggered and maintained by her anemia, worsening renal function and volume overload; 1. Would consider PRBCs with IV lasix/Bumex between units to target a Hb closer to 9 or 10 g/dL 2. Continue diuresis, strict is/Os and daily weights 3. Target HR is 100-110 bpm given presence of physiological stressors 4. Avoid anti-coagulation until GI blood loss is investigated and managed - this includes aspirin; at this time the risk of bleeding far outweighs risk of thromboembolism 5. GDMT for HFrEF should include BBlocker, YOLANDA-I/ARB or ARNi, SGLT2i and spironolactone -- her current s.cr is prohibitive for most of these agents 6. Treat non cardiac comorbidities as clinically appropriate 7. Follow up with [facility] post discharge Thank you for the consultation Shawanda Vargas MD [facility] Cardiovascular Medicine
[2024-02-25 16:32] LABS: Bilirubin Urine NEGATIVE (NEGATIVE); Blood Urine MODERATE (NEGATIVE); Clarity Urine CLEAR (CLEAR); Color Urine YELLOW (YELLOW); Glucose Urine UA NEGATIVE (NEGATIVE); Ketones Urine NEGATIVE (NEGATIVE); Leukocyte Esterase Urine LARGE (NEGATIVE); Nitrite Urine NEGATIVE (NEGATIVE); Protein Urine 100 mg/dL (NEG/TRACE); Urine Microscopic Indicated YES; Urobilinogen Urine 0.2 EU/dL (0.2-1.0)
[2024-02-25 16:46] LABS: Glucometer 182 mg/dL (74-106)
[2024-02-25 16:49] LABS: Bacteria Urine LARGE #/HPF (NONE SEEN); Mucus Urine NONE SEEN (NONE SEEN); Squamous Epithelial Cell Urine FEW #/LPF (NONE/RARE); WBC Urine 20-50 #/HPF (NONE SEEN)
[2024-02-25 16:50] LABS: Cast Seen? NONE SEEN #/LPF (NONE SEEN); Crystals Seen? None Seen #/HPF (None Seen); Urine Culture Indicated YES
[2024-02-25 20:59] LABS: Glucometer 174 mg/dL (74-106)
[2024-02-25] MEDS: ACETAMINOPHEN 325 MG TABLET 650 MG PO (21:59)
[2024-02-25] MEDS: ATORVASTATIN CALCIUM 40 MG TABLET PO (22:00)
[2024-02-25] MEDS: OXYCODONE HCL 5 MG TABLET PO (22:00)
[2024-02-25] MEDS: DIPHENHYDRAMINE HCL 25 MG CAPSULE PO (22:30)
[2024-02-26] VITALS (60 sets, daily range): BP systolic 89–105; BP diastolic 59–80; PULSE 10–113; TEMP 36.6–37.1; O2SAT 94–100
[2024-02-26] MEDS: BUMETANIDE 1 MG/4 ML VIAL IVP (01:30)
[2024-02-26 04:57] LABS: Basophils Percent Auto 0.4 % (0.2-2.0); Eosinophils Absolute Auto 0.2 10^3/uL (0.0-0.7); Eosinophils Percent Auto 2.1 % (0.9-7.0); Hematocrit 29.2 % (36.0-48.0); Hemoglobin 9.1 g/dL (12.0-16.0); Immature Granulocytes Abs Auto 0.04 10^3/uL (0.00-0.03); Immature Granulocytes Pct Auto 0.4 % (0.0-0.5); Lymphocytes Absolute Auto 1.9 10^3/uL (1.2-3.8); Lymphocytes Percent Auto 19.3 % (20.5-60.0); Mean Corpuscular HGB Conc 31.2 g/dL (29.9-35.2); Mean Corpuscular Hemoglobin 29.2 pg (26.7-34.0); Mean Corpuscular Volume 93.6 fL (81.0-99.0); Monocytes Absolute Auto 0.9 10^3/uL (0.3-0.8); Monocytes Percent Auto 9.1 % (1.7-12.0); Neutrophils Absolute Auto 6.8 10^3/uL (1.4-6.5); Neutrophils Percent Auto 68.7 % (43.0-75.0); Platelet Count 116 10^3/uL (150-450); Red Blood Count 3.12 10^6/uL (4.20-5.40); Red Cell Distribution Width 16.6 % (11.0-15.0); White Blood Count 9.9 10^3/uL (4.0-11.0)
[2024-02-26 05:38] LABS: Alanine Aminotransferase 13 U/L (14-59); Albumin Globulin Ratio 0.6; Albumin Level 2.3 g/dL (3.4-5.0); Alkaline Phosphatase 143 U/L (46-116); Anion Gap 10.4; Aspartate Amino Transferase 18 U/L (15-37); BUN Creatinine Ratio 16.1; Calcium 7.6 mg/dL (8.5-10.1); Carbon Dioxide 26.3 mmol/L (21.0-32.0); Chloride 104 mmol/L (98-107); Estimated GFR (African America 34 (>=60); Estimated GFR (Non-African Ame 28 (>=60); Glucose 79 mg/dL (74-106); Potassium 3.7 mmol/L (3.5-5.1); Sodium 137 mmol/L (136-145); Total Protein 6.3 g/dL (6.4-8.2)
--- NOTE | 2024-02-26 08:37 | P.DS_ITS ---
DS: Providers Provider Date of admission: 02/25/24 16:38 Primary care physician: Non-Staff Physician, Admitting clinician: Mandi Gracia Consults: 02/24/24 Consult to Wound Care Routine Consulting Provider: Galileo Choudhury Reason for consultation: Wound to coccyx Has provider been notified: No 02/25/24 Occupational Therapy Eval and Treat Routine Reason for consultation: rehab Physical Therapy Eval and Treat Routine Reason for consultation: weakness 02/25/24 09:00 Consult to Cardiology Routine Reason for consultation: A-fib w/RVR, SOB Has provider been notified: No Discharging clinician: Mandi Gracia DS: Diagnosis Discharge Diagnosis (1) Atrial fibrillation with rapid ventricular response: (2) Symptomatic anemia: (3) Acute on chronic blood loss anemia: (4) CHF (congestive heart failure): Qualifiers: Heart failure chronicity: acute on chronic Heart failure type: combined systolic and diastolic Qualified Code(s): I50.43 - Acute on chronic combined systolic (congestive) and diastolic (congestive) heart failure (5) Pressure ulcer, sacrum: Qualifiers: Pressure injury stage: pressure injury of deep tissue Qualified Code(s): L89.156 - Pressure-induced deep tissue damage of sacral region (6) CKD (chronic kidney disease) stage 3, GFR 30-59 ml/min: Qualifiers: Chronic kidney disease stage 3 subtype: stage 3a (GFR 45-59) Qualified Code(s): N18.31 - Chronic kidney disease, stage 3a (7) DM2 (diabetes mellitus, type 2): Qualifiers: Chronic kidney disease stage: stage 3 (moderate) Chronic kidney disease stage 3 subtype: stage 3a (GFR 45-59) Diabetes mellitus complication detail: with chronic kidney disease Diabetes mellitus complication status: with kidney complications Diabetes mellitus mcc insulin 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: 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 Qualified Code(s): E11.22 - Type 2 diabetes mellitus with diabetic chronic kidney disease; N18.31 - Chronic kidney disease, stage 3a (8) Hyperlipidemia: Qualifiers: Hyperlipidemia type: unspecified Qualified Code(s): E78.5 - Hyperlipidemia, unspecified (9) Essential hypertension: (10) MDD (major depressive disorder): Qualifiers: Active/Remission status: in full remission Major depression recurrence: recurrent Qualified Code(s): F33.42 - Major depressive disorder, recurrent, in full remission (11) GERD (gastroesophageal reflux disease): Qualifiers: Esophagitis presence: without esophagitis Qualified Code(s): K21.9 - Gastro-esophageal reflux disease without esophagitis DS: Summary Hospital Course Hospital Course: This is a 68-year-old woman past medical history paroxysmal atrial fibrillation, prior history of atypical flutter status post ablation in 2021, history of coronary artery disease that was nonobstructive by cardiac catheterization in 2020, chronic systolic heart failure with last ejection fraction around 40%, adenocarcinoma of the rectum (tissue diagnosis of adenocarcinoma less then 4cm from the anal verge), chronic sacral decubitus ulcer and sacral osteomyelitis, history of GI bleed requiring exploratory laparotomy, laparotomy with small bowel resection and colostomy creation in September 2023 from ischemic colitis, who now has indwelling Puga Catheter. She has not been maintained on anticoagulation therapy due to bleeding. Also with GERD, Diabetes, hypotension, HLD. The patient was admitted recently to [facility] with sepsis (sacral wounds) and atrial fibrillation with rapid ventricular response and was placed at the [facility] for acute rehab after this hospital stay. She was last admitted to this facility on 02/04/24 where cardiology also seen her for hypotension and Afib with RVR and made several recommendations of increasing medications including Cardizem. Also had rectal vs Vaginal acute bleed and General surgery was consulted at that time. No surgical intervention here and is not a good surgical canidate for this facility and recommendation was, She needs close follow up with a colorectal specialist to discuss possible APR if she is determined to be a surgical candidate . Bleedings seemed to stop at that admission, she was suppose to have close colorectal follow up and she was discharged back to the [facility]. on 02/24/24, She was sent from the [facility] back to [facility] for shortness of breath and tachycardia. Patient has chronic Afib but this time was in RVR with HR 120-130's. ER findings: chest x-ray showed cardiomegaly without significant pulmonary edema and she is breathing easily in the ER maintaining room air oxygen saturation, She was treated for the A-fib with RVR with IV Cardizem. She maintained her blood pressure after the IV Cardizem but her heart rate remained in the low 100s. She was started on a Cardizem drip at 5 and transferred to the ICU/hospitalist for further plan of care. Resp panel negative. At the time of admission exam, patient had been on Cardizem 5mg overnight. She is on oral Cardizem at home but 180mg daily and cardiology recommended increase to 240mg last consult. She also takes metoprolol 100mg BID. Overnight hospitalist placed her on therapeutic Lovenox and her HB is maintaining at 7.7. I stopped the drip and placed her on oral Cardizem 240mg daily. Her proBNP was [place] [id number]. Her oxygen saturations have been maintaining and she denies shortness of breath or chest pain. I placed her on Bumex 2mg BID IV daily as she also has some lower ext edema. Troponin was normal range. Cardiology consult recommended blood transfusion. Patient was transfused with 2 units of PRBC's with bumex between units. At the time of discharge her hemoglobin is 9.1. HR in the 90's. No further shortness of breath, tachycardia or chest pain. I discussed with the patient that transfusion is only a band aid and she will continue to slow blood loss until the issue at hand is fixed. She has maintained her hemoglobin at 7-8.0 since last hospital admission 3 weeks ago. She really needs to follow up with colorectal surgeon. No anticoagulation, and continue iron supplement. No active blood loss noted here. Most likely is rectal bleeding from adenocarcinoma tumor. Follow up has been made for next week. I have also changed her cardizem to 240mg daily. She also has close follow up in the cardiology clinic. Patient also found to have Acute UTI, given dose of rocephin 1g x [address] on Augmentin 500mg BID x 7 days. She is to return to the ER for any other worsening signs or symptoms. Status at Discharge Functional status at discharge: bed bound Overall status at discharge: patient is progressing back to baseline Time Spent with Patient Time attestation: Total time spent providing and/or coordinating discharge services: Time spent: greater than 30 minutes Exam Narrative Exam Narrative: General: Patient is alert, and oriented to person, place and time with normal affect, proper hygiene Skin: small open sore on the abdomen from colectomy scar but no infection noted, please see wound nurse documentation of the sacral wounds. Head: atraumatic, acephalic Eyes: PERRLA, no nystagmus present, conjunctiva clear, no scleral icterus Ears:normal gross auditory acuity Heart: irregular rhythm, normal rhythm no murmurs/rubs/gallops Lungs: no audible wheezes, crackles and normal breath sounds all lung vega Abdomen: no distension colostomy present with stool in the bag. Musculoskeletal: +1 swelling bilateral lower extremities Neuro: CN II-X grossly intact Constitutional Vital Signs, click to edit/add: Last Vital Signs Temp 97.9 F 02/26/24 05:00 Pulse 91 H 02/26/24 06:00 Resp 20 02/26/24 03:00 BP 102/76 02/26/24 05:00 Pulse Ox 97 02/26/24 05:00 O2 Del Method Room Air 02/26/24 05:00 DS: Data Data Completed and Pending Labs on day of discharge: Labs from last 24 hours 02/26/24 02/25/24 02/25/24 04:40 20:58 16:45 WBC 9.9 RBC 3.12 L Hgb 9.1 L Hct 29.2 L MCV 93.6 MCH 29.2 MCHC 31.2 RDW 16.6 H Plt Count 116 L MPV 11.0 Neut % (Auto) 68.7 Lymph % (Auto) 19.3 L [place] % (Auto) 9.1 Eos % (Auto) 2.1 Baso % (Auto) 0.4 Neut # (Auto) 6.8 H Lymph # (Auto) 1.9 [place] # (Auto) 0.9 H Eos # (Auto) 0.2 Baso # (Auto) 0.0 Abs Immat Gran (auto) 0.04 H Imm/Tot Granulo (auto) 0.4 Sodium 137 Potassium 3.7 Chloride 104 Carbon Dioxide 26.3 Anion Gap 10.4 BUN 29.0 H Creatinine 1.80 H Est GFR ( Amer) 34 L Est GFR (Non-Af Amer) 28 L BUN/Creatinine Ratio 16.1 Glucose 79 Calcium 7.6 L Total Bilirubin 1.0 AST 18 ALT 13 L Alkaline Phosphatase 143 H NT-Pro-B Natriuret Pep 15619.0 H* Total Protein 6.3 L Albumin 2.3 L Globulin 4.0 Albumin/Globulin Ratio 0.6 Urine Color Urine Clarity Urine pH Ur Specific [place] Urine Protein Urine Glucose (UA) Urine Ketones Urine Occult Blood Urine Nitrite Urine Bilirubin Urine Urobilinogen Ur Leukocyte Esterase Urine RBC Urine WBC Ur Squamous Epith Cells Urine Crystals Urine Bacteria Urine Casts Urine Mucus Ur Culture Indicated? POC Glucose 174 H 182 H Blood Type Antibody Screen Antibody Identification Crossmatch ([facility]) 02/25/24 02/25/24 02/25/24 16:20 11:51 11:00 WBC RBC Hgb 7.7 L Hct 25.0 L MCV MCH MCHC RDW Plt Count MPV Neut % (Auto) Lymph % (Auto) [place] % (Auto) Eos % (Auto) Baso % (Auto) Neut # (Auto) Lymph # (Auto) [place] # (Auto) Eos # (Auto) Baso # (Auto) Abs Immat Gran (auto) Imm/Tot Granulo (auto) Sodium Potassium Chloride Carbon Dioxide Anion Gap BUN Creatinine Est GFR ( Amer) Est GFR (Non-Af Amer) BUN/Creatinine Ratio Glucose Calcium Total Bilirubin AST ALT Alkaline Phosphatase NT-Pro-B Natriuret Pep Total Protein Albumin Globulin Albumin/Globulin Ratio Urine Color Yellow Urine Clarity Clear Urine pH 6.0 Ur Specific [place] 1.020 Urine Protein 100 A Urine Glucose (UA) Negative Urine Ketones Negative Urine Occult Blood Moderate A Urine Nitrite Negative Urine Bilirubin Negative Urine Urobilinogen 0.2 Ur Leukocyte Esterase Large A Urine RBC 5-10 A Urine WBC 20-50 A Ur Squamous Epith Cells Few A Urine Crystals None seen Urine Bacteria Large A Urine Casts None seen Urine Mucus None seen Ur Culture Indicated? Yes POC Glucose 161 H Blood Type Antibody Screen Antibody Identification Crossmatch ([facility]) 02/25/24 05:27 WBC RBC Hgb Hct MCV MCH MCHC RDW Plt Count MPV Neut % (Auto) Lymph % (Auto) [place] % (Auto) Eos % (Auto) Baso % (Auto) Neut # (Auto) Lymph # (Auto) [place] # (Auto) Eos # (Auto) Baso # (Auto) Abs Immat Gran (auto) Imm/Tot Granulo (auto) Sodium Potassium Chloride Carbon Dioxide Anion Gap BUN Creatinine Est GFR ( Amer) Est GFR (Non-Af Amer) BUN/Creatinine Ratio Glucose Calcium Total Bilirubin AST ALT Alkaline Phosphatase NT-Pro-B Natriuret Pep Total Protein Albumin Globulin Albumin/Globulin Ratio Urine Color Urine Clarity Urine pH Ur Specific [place] Urine Protein Urine Glucose (UA) Urine Ketones Urine Occult Blood Urine Nitrite Urine Bilirubin Urine Urobilinogen Ur Leukocyte Esterase Urine RBC Urine WBC Ur Squamous Epith Cells Urine Crystals Urine Bacteria Urine Casts Urine Mucus Ur Culture Indicated? POC Glucose Blood Type O Positive Antibody Screen Positive Antibody Identification Anti-E Crossmatch ([facility]) See Detail Discharge Plan Discharge Disposition: Xfer SNF Condition: Good Discharge Medications: New diltiazem HCl 240 mg Capsule,Extended Release 24hr 240 mg PO QD 30 Days Qty: 30 0RF amoxicillin-pot clavulanate [Augmentin] 500-125 mg tablet 1 tab PO Q12H 7 Days Qty: 14 0RF Continued polyethylene glycol 3350 [Miralax] 17 gram powder in packet 17 g PO DAILY PRN (Reason: constipation) magnesium oxide 400 mg magnesium tablet 800 mg PO TID Hold Instructions: dc date 02/10/24 acetaminophen 500 mg capsule 1,000 mg PO Q6H PRN (Reason: fever or pain) ascorbic acid (vitamin C) [Acerola C] 500 mg tablet,chewable 500 mg PO BID atorvastatin 40 mg tablet 40 mg PO .QHS bumetanide 2 mg tablet 2 mg PO DAILY ergocalciferol (vitamin D2) 1,250 mcg (50,000 unit) capsule 50,000 unit PO QWEEK Rx Instructions: EVERY SATURDAY ferrous sulfate [FeroSul] 325 mg (65 mg iron) tablet 325 mg PO BID insulin glargine 100 unit/mL (3 mL) insulin pen 10 unit subcut BID metoprolol tartrate [Lopressor] 100 mg tablet 100 mg PO BID midodrine 5 mg tablet 5 mg PO TIDWM Rx Instructions: HOLD IF SBP > 130 do not give last dose of day after 6PM or within 4 hrs of bedtime multivitamin [Daily Multi-Vitamin] Tablet 1 tab PO DAILY insulin aspart U-100 [Novolog FlexPen U-100 Insulin] 100 unit/mL (3 mL) insulin pen 4 - 14 sliding scale dose subcut ACHS Rx Instructions: 100-149 0 UNITS 150-199 4 UNITS 200-249 7 UNITS 250-299 10 UNITS 300-349 12 UNITS 350-400 14 UNITS oxycodone 5 mg tablet 5 mg PO Q6H PRN (Reason: pain) Patient Comments: 1 tablet for pain 4-7/10 2 tablets for pain 8-/ pantoprazole 20 mg tablet,delayed release (DR/EC) 20 mg PO DAILY potassium chloride [Klor-Con] 20 mEq packet 20 meq PO DAILY sertraline [Zoloft] 50 mg tablet 50 mg PO DAILY tamsulosin [Flomax] 0.4 mg capsule 0.4 mg PO DAILY zinc sulfate 50 mg zinc (220 mg) capsule 50 mg PO DAILY Patient Comments: 01/25/24-02/08/24 FOR 14 DAYS ondansetron HCl 4 mg tablet 4 mg PO Q6H PRN (Reason: nausea and vomiting) Discontinued diltiazem HCl [Cardizem CD] 180 mg capsule,extended release 24hr 180 mg PO DAILY Print Language: Swedish Forms: Portal Instructions Follow Up Appointments: -Dr Cutler [address] [facility] March 02 2024 @ 10:20 [facility] cardiology cancelled February 26, rescheduled for March 09 @10:30 Discharge location: [facility]
[2024-02-26] MEDS: MULTIVITAMIN TABLET 1 TAB PO (08:58)
[2024-02-26] MEDS: ZINC GLUCONATE 50 MG TABLET PO (08:58)
[2024-02-26] MEDS: DILTIAZEM HCL 240 MG CAP.ER.24H PO (08:58)
[2024-02-26] MEDS: METOPROLOL TARTRATE 100 MG TABLET PO (08:58)
[2024-02-26] MEDS: FERROUS SULFATE 325 MG TABLET PO (08:58)
[2024-02-26] MEDS: OMEPRAZOLE 20 MG CAPSULE.DR PO (08:58)
[2024-02-26] MEDS: ASCORBIC ACID 500 MG TABLET PO (08:58)
[2024-02-26] MEDS: TAMSULOSIN HCL 0.4 MG CAPSULE 0.400000000000000022 MG PO (08:59)
[2024-02-26] MEDS: MIDODRINE HCL 5 MG TABLET PO ×2 (08:59→11:53)
[2024-02-26] MEDS: SERTRALINE HCL 50 MG TABLET PO (08:59)
[2024-02-26] MEDS: BUMETANIDE 1 MG/4 ML VIAL 2 MG IVP (08:59)
[2024-02-26] MEDS: SODIUM HYPOCHLORITE HALF STRENGTH (0.25%) 473 ML BOTTLE 30 ML TOPICAL (09:00)
--- NOTE | 2024-02-26 09:15 | CM.NOTE ---
Rounds made with Dr. Gracia, pt will discharge back to [place] for skilled therapy. Rescheduled appt with colorectal surgeon for March 02 at 10:20.
[2024-02-26] MEDS: CEFTRIAXONE 1,000 MG in 0.9 % SODIUM CHLORIDE 50 ML 100 MG IV (09:40)
[2024-02-26] MEDS: INSULIN DETEMIR 300 UNIT/3 ML INSULN.PEN 10 UNIT SUBQ (09:46)
--- NOTE | 2024-02-26 10:17 | REH.PTDLY ---
Physical Therapy Daily Note PT Daily Note/Assess Start: 02/25/24 12:29 Freq: Status: Active Protocol: Document 02/26/24 10:13 GENI (Rec: 02/26/24 10:17 GENI Laptop) Physical Therapy Daily Note/Assessment Time In 09:50 Time Out 10:03 Subjective Pt declines getting out of bed , reports she can't. Received blood throughout the night and is whooped. Pt does agree to LE bed exs. Therapeutic Exercise Minutes (minutes) 8 Therapeutic Exercise Units 1 Therapeutic Exercise Treatment Instructed in supine AA B LE exs AP, QS, heel slides, abd slides and SLR 10x ea with limited ROM of heel slides. No complaints when performing. Total Therapy Minutes 8 Total Physical Therapy Units 1 Daily Note Summary Supine exs only today as pt declines getting out of bed. Pt is to be DC to go back to [place] today.
--- NOTE | 2024-02-26 10:25 | SWNOTE1 ---
Pt is able to be discharged back to [place] today.
--- NOTE | 2024-02-26 11:24 | SWNOTE1 ---
Pt is ready for dc back to [place]. MARILOU set up [facility] for 12:30om. SW notified nursing, pt, and [place] of time. SW faxed over dc med rec to [place]. MARILOU placed dc med rec, dc summary, labs, updated PT note, and vitals from today in pt's packet.
--- NOTE | 2024-02-26 11:26 | SWNOTE1 ---
SW emailed Chaitanya at the [facility] with pt's follow up dates and times.
--- NOTE | 2024-02-26 12:10 | PC.NURSE ---
iv's discontinued x2 , at bedside, report called to sharda to ursula.
--- NOTE | 2024-02-26 12:54 | PC.NURSE ---
[facility] at bedside. report given. at bedside. pt belongings packed and sent with pt. cell phone with .
== END 2024-02-26 12:59 | DRG 811 ==
LOC: ER 18:36 → ICU 20:14
PROVIDERS: Physician Assistant; Registered Nurse; Admitting Provider Family Medicine; Emergency Provider Emergency Medicine; Visit Provider Family Medicine
DX: D62 Acute posthemorrhagic anemia (principal); I50.43 Acute on chronic combined systolic (congestive) and diastolic (congestive) heart failure; I48.20 Chronic atrial fibrillation, unspecified; I13.0 Hypertensive heart and chronic kidney disease with heart failure and stage 1 through stage 4 chronic kidney disease, or unspecified chronic kidney disease; C20 Malignant neoplasm of rectum; N39.0 Urinary tract infection, site not specified; L89.156 Pressure-induced deep tissue damage of sacral region; N18.31 Chronic kidney disease, stage 3a; E11.22 Type 2 diabetes mellitus with diabetic chronic kidney disease; E78.5 Hyperlipidemia, unspecified; F33.42 Major depressive disorder, recurrent, in full remission; K21.9 Gastro-esophageal reflux disease without esophagitis; I25.10 Atherosclerotic heart disease of native coronary artery without angina pectoris; I95.89 Other hypotension; Z93.3 Colostomy status; Z96.0 Presence of urogenital implants; Z79.4 Long term (current) use of insulin; Z79.899 Other long term (current) drug therapy; Z87.891 Personal history of nicotine dependence; Z82.49 Family history of ischemic heart disease and other diseases of the circulatory system; Z90.49 Acquired absence of other specified parts of digestive tract; Z74.01 Bed confinement status
CPT/HCPCS: 0202U; 36415; 36430; 71045; 80048; 80053; 81001; 82800; 83605; 83880; 84145; 84443; 84484; 85014; 85018; 85025; 85610; 86850; 86900; 86901; 87040; 87086; 87150; 87186; 93005; 96365; 96366; 96367; 96372; 96375; 96376; 97110; 97163; 97165; 99285; G0378; P9016

== ENCOUNTER 2024-03-16 21:37 | Inpatient (IN) | payer MEDICARE, OTHER, SELFPAY ==
[2024-03-16] VITALS (10 sets, daily range): BP systolic 98; BP diastolic 62; PULSE 84–114; TEMP 36.6; O2SAT 90–96
--- NOTE | 2024-03-16 21:47 | XR_ITS ---
The [address] [address] Patient Name: HARRIS CASTREJON MRN: [id number] date: 1955 Sex: F Assigned Patient Location: ER Current Patient Location: ER Accession/Order Number: [id number] Exam Date: 03/16/2024 22:25 Report Date: 03/16/2024 23:03 At the request of: ALHAJI CHAVEZ Procedure: XR chest 1V EXAM: XR chest 1V HISTORY: shortness of breath COMPARISON: Chest radiograph dated 02/24/2024. TECHNIQUE: One view of the chest was obtained. FINDINGS: The cardiac silhouette is enlarged though stable in size. Aortic atherosclerotic disease is seen. There are small bilateral pleural effusions with bibasilar opacities. There is interstitial prominence. There is no significant pneumothorax. No acute osseous abnormality is seen. XR/XR chest 1V IMPRESSION: 1. Stable enlarged cardiac silhouette with suspected interstitial edema, small bilateral pleural effusions, and bibasilar opacities that could represent atelectasis, aspiration changes, and/or pneumonia. Electronically authenticated by: Emmanuel TROTTER Date: 03/16/2024 23:03
--- NOTE | 2024-03-16 21:47 | ECG_ITS ---
The [facility] Test Date: 2024-03-16 Pat Name: HARRIS CASTREJON Department: Room: - Gender: Female Chaser Tar: : 1955 Requested By: Order Number: [id number] Reading MD: ROMINA BRISENO Measurements Intervals Cook Rate: 80 P: [id number] MD: [id number] QRS: 105 QRSD: 88 T: 213 QT: 356 QTc: 392 Interpretive Statements 61578 Atrial fibrillation with aberrant conduction, or ventricular premature complexes [address] depression, probably digitalis effect 7100 Abnormal right axis deviation 8102 Low QRS voltage in chest leads 9150 abnormal ECG Electronically Signed On 03-17-2024 6:56:32 EDT by ROMINA BRISENO
--- NOTE | 2024-03-16 21:56 | ED_ITS ---
HPI HPI - General Adult General Chief complaint: Shortness of Breath/Dyspnea Stated complaint: shortness of breath Time Seen by Provider: 03/16/24 21:42 Source: patient and other Source information: ems Mode of arrival: ambulance Limitations: no limitations History of Present Illness HPI narrative: 68-year-old female to the emergency department chief complaint shortness of breath. Patient reports she has a history of COPD, CHF and atrial fibrillation. She reports worsening shortness of breath throughout the day today that got particularly severe around 4 PM tonight. She denies any chest pain. She denies any cough, fever, sweats, chills. She reports some mild nausea. She reports that she is on 2 L nasal cannula normally Related Data Home Medications ?Medication ?Instructions ?Recorded ?Confirmed acetaminophen 500 mg capsule 1,000 mg PO Q6H PRN fever or pain 02/02/24 02/24/24 ascorbic acid (vitamin C) 500 mg 500 mg PO BID 02/02/24 02/24/24 chewable tablet (Acerola C) atorvastatin 40 mg tablet 40 mg PO .QHS 02/02/24 02/24/24 bumetanide 2 mg tablet 2 mg PO DAILY 02/02/24 02/24/24 ergocalciferol (vitamin D2) 1,250 50,000 unit PO QWEEK 02/02/24 02/24/24 mcg (50,000 unit) capsule ferrous sulfate 325 mg (65 mg 325 mg PO BID 02/02/24 02/24/24 iron) tablet (FeroSul) insulin aspart U-100 100 unit/mL 4 - 14 sliding scale dose subcut 02/02/24 02/24/24 (3 mL) subcutaneous pen (Novolog ACHS FlexPen U-100 Insulin aspart) insulin glargine 100 unit/mL (3 10 unit subcut BID 02/02/24 02/24/24 mL) subcutaneous pen metoprolol tartrate 100 mg tablet 100 mg PO BID 02/02/24 02/24/24 (Lopressor) midodrine 5 mg tablet 5 mg PO TIDWM 02/02/24 02/24/24 multivitamin (Daily Multi-Vitamin 1 tab PO DAILY 02/02/24 02/24/24 tablet) ondansetron HCl 4 mg tablet 4 mg PO Q6H PRN nausea and vomiting 02/02/24 02/24/24 pantoprazole 20 mg tablet,delayed 20 mg PO DAILY 02/02/24 02/24/24 release potassium chloride 20 mEq oral 20 meq PO DAILY 02/02/24 02/24/24 packet (Klor-Con) sertraline 50 mg tablet (Zoloft) 50 mg PO DAILY 02/02/24 02/24/24 tamsulosin 0.4 mg capsule (Flomax) 0.4 mg PO DAILY 02/02/24 02/24/24 zinc sulfate 50 mg zinc (220 mg) 50 mg PO DAILY 02/02/24 02/24/24 capsule magnesium oxide 800 mg PO TID 02/04/24 02/24/24 polyethylene glycol 3350 17 gram 17 g PO DAILY PRN constipation 02/04/24 02/24/24 oral powder packet (Miralax) Previous Rx's ?Medication ?Instructions ?Recorded amoxicillin 500 mg-potassium 1 tab PO Q12H 7 days #14 tabs 02/26/24 clavulanate 125 mg tablet (Augmentin) diltiazem HCl 240 mg 240 mg PO QD 30 days #30 caps 02/26/24 capsule,extended release 24 hr oxycodone 5 mg tablet 5 mg PO Q6H PRN pain 1 day #4 tabs 02/26/24 Allergies Allergy/AdvReac Type Severity Reaction Status Date / Time oats AdvReac Unknown Verified 02/02/24 16:53 artificial sweetners AdvReac Severe Migraine Uncoded 02/24/24 20:32 Opioid HPI Opioid Management Most Recent Opioid Data: Last Pain Scale 7 02/25/24 23:00 Last ORT Total Score 0 02/24/24 20:48 Last ORT Risk Category Low Risk 02/24/24 20:48 Review of Systems ROS Status of ROS 10 or more systems reviewed and unremark able except as noted in history and below [facility] Medical History (Updated 03/16/24 @ 23:37 by Shiraz Yang MD) Atrial flutter with rapid ventricular response ?I48.92 - Unspecified atrial flutter (ICD-10) Acute on chronic blood loss anemia ?D62 - Acute posthemorrhagic anemia (ICD-10) Rectal bleed ?K62.5 - Hemorrhage of anus and rectum (ICD-10) Adenocarcinoma of rectum ?C20 - Malignant neoplasm of rectum (ICD-10) Adenocarcinoma of rectum ?C20 - Malignant neoplasm of rectum (ICD-10) GERD (gastroesophageal reflux disease) ?K21.9 - Gastro-esophageal reflux disease without esophagitis (ICD-10) CHF (congestive heart failure) ?I50.9 - Heart failure, unspecified (ICD-10) Depression ?F32.A - Depression, unspecified (ICD-10) Closed head injury ?S09.90XA - Unspecified injury of head, initial encounter (ICD-10) Post concussion syndrome ?F07.81 - Postconcussional syndrome (ICD-10) Neck pain ?M54.2 - Cervicalgia (ICD-10) Osteomyelitis of vertebra, sacral and sacrococcygeal region ?M46.28 - Osteomyelitis of vertebra, sacral and sacrococcygeal region (ICD- 10) GI hemorrhage ?K92.2 - Gastrointestinal hemorrhage, unspecified (ICD-10) Pressure ulcer, sacrum ?L89.159 - Pressure ulcer of sacral region, unspecified stage (ICD-10) Chronic a-fib ?I48.20 - Chronic atrial fibrillation, unspecified (ICD-10) CKD (chronic kidney disease) stage 3, GFR 30-59 ml/min ?N18.30 - Chronic kidney disease, stage 3 unspecified (ICD-10) DM2 (diabetes mellitus, type 2) ?E11.9 - Type 2 diabetes mellitus without complications (ICD-10) Hyperlipidemia ?E78.5 - Hyperlipidemia, unspecified (ICD-10) Essential hypertension ?I10 - Essential (primary) hypertension (ICD-10) HFrEF (heart failure with reduced ejection fraction) ?I50.20 - Unspecified systolic (congestive) heart failure (ICD-10) MDD (major depressive disorder) ?F32.9 - Major depressive disorder, single episode, unspecified (ICD-10) Muscle wasting and atrophy, not elsewhere classified, multiple sites ?M62.59 - Muscle wasting and atrophy, not elsewhere classified, multiple sites (ICD-10) Surgical History Colostomy in place ?Z93.3 - Colostomy status (ICD-10) Family History Father Family history of myocardial infarction Family history of hypertension Mother Family history of CHF (congestive heart failure) Family history of cancer Family history of hypertension Grandmother Family history of diabetes mellitus Family history of hypertension Social History Within the past year, how often did you have a drink containing alcohol: never Within the past year, how often did you have six or more drinks on one occasion: never Score interpretation: A score less than 3 is consistent with normal alcohol consumption. Smoking status: Former smoker Non-prescribed substance use: denies use Previous occupational history: retired Highest level of school completed/degree received: high school graduate Are you now , , , , never or living with a partner: In a typical week, how many times do you talk on the telephone with family, friends, or neighbors: 3 or more times per week How often do you get together with friends or relatives: 3 or more times per week How often do you attend evangelical or anabaptist services: 4 or more times per year Do you belong to any clubs or organizations such as evangelical groups unions, fraCoopkanics or athletic groups, or school groups: no Total score: 3 Score interpretation: A score of greater than or equal to 2 indicates the lowest level of social isolation. Little interest or pleasure in doing things: not at all Feeling down, depressed, or hopeless: not at all Feel stressed/tense/nervous/anxious/difficulty sleeping: not at all Do you think of yourself as: straight/heterosexual Gender Identity: female Exam Narrative Exam Narrative: VITALS: I have reviewed the triage vital signs. GENERAL: Morbidly obese chronically unwell appearing adult female in mild respiratory distress NEURO: Alert and oriented. Moves all extremities. Face is symmetric and expressive. EYES: PERRL. No scleral icterus or conjunctival injection. No discharge. HENT: Normocephalic, atraumatic. Hearing is grossly intact. Nares grossly patent and without discharge. Mucous membranes moist. NECK: No JVD. Patient moves neck without restriction. CARDIO: Rhythm regular. Normal rate. No murmur, rub, or gallop. Pulses equal bilaterally in the upper and lower extremity. 2+ pitting edema bilaterally. PULM: Diminished bilaterally with some trace wheezes. Mild conversational dyspnea. Mild increased work of breathing. GI/: Abdomen is soft and non-tender. Normoactive bowel sounds. EXTREMITIES: Symmetric muscle bulk. No joint swelling. No clubbing, cyanosis, or deformity. SKIN: Warm and dry. Normal turgor. No rash or lesions appreciated. PSYCH: Mood, affect, and interaction is appropriate to the setting. Constitutional Vital Signs, click to edit/add: Last Vital Signs Temp 97.8 F 03/16/24 21:40 Pulse 114 H 03/16/24 22:57 Resp 26 H 03/16/24 22:57 BP 98/62 03/16/24 21:40 Pulse Ox 94 L 03/16/24 22:57 O2 Del Method Nasal Cannula 03/16/24 22:57 O2 Flow Rate 3 03/16/24 22:57 Course Vital Signs Vital signs: Vital Signs Temperature 97.8 F 03/16/24 21:40 Pulse Rate 99 H 03/16/24 21:40 Respiratory Rate 24 H 03/16/24 21:40 Blood Pressure 98/62 03/16/24 21:40 Pulse Oximetry 95 03/16/24 21:40 Oxygen Delivery Method Room Air 03/16/24 21:40 Temperature 97.8 F 03/16/24 21:40 Pulse Rate 114 H 03/16/24 22:57 Respiratory Rate 26 H 03/16/24 22:57 Blood Pressure 98/62 03/16/24 21:40 Pulse Oximetry 94 L 03/16/24 22:57 Oxygen Delivery Method Nasal Cannula 03/16/24 22:57 Oxygen Delivery Flow Rate 3 03/16/24 22:57 Medical Decision Making MDM Narrative Medical decision making narrative: 68-year-old female to the emergency department chief complaint of shortness of breath. Vital stable, the patient is afebrile. She is on 3 L nasal cannula. She has some mild respiratory distress upon arrival. She was given Solu-Medrol by EMS. DuoNeb treatment is ordered. Basic labs are ordered. Chest x-ray. BNP. Patient agrees with this plan. Lab work reviewed and noted. Her BNP is significantly elevated even for her. Troponin normal. Chest x-ray is consistent with volume overloaded state/decompensated heart failure. No infectious process is suspected. Renal function is near her baseline, no BRANDEE today. Bumex is ordered based on reference of previous cardiology consultations from inpatient stays for heart failure. Patient remained stable on 3 L nasal cannula. Case was discussed with the hospitalist who agrees admit the patient to their service. Lab Data Labs: Lab Results 03/16/24 Range/Units 22:10 WBC 7.2 (4.0-11.0) 10^3/uL RBC 3.46 L (4.20-5.40) 10^6/uL Hgb 10.2 L (12.0-16.0) g/dL Hct 32.8 L (36.0-48.0) % MCV 94.8 (81.0-99.0) fL MCH 29.5 (26.7-34.0) pg MCHC 31.1 (29.9-35.2) g/dL RDW 17.0 H (11.0-15.0) % Plt Count 113 L (150-450) 10^3/uL MPV 11.3 (9.5-13.5) fL Neut % (Auto) 91.5 H (43.0-75.0) % Lymph % (Auto) 3.1 L (20.5-60.0) % [place] % (Auto) 3.3 (1.7-12.0) % Eos % (Auto) 1.7 (0.9-7.0) % Baso % (Auto) 0.1 L (0.2-2.0) % Neut # (Auto) 6.6 H (1.4-6.5) 10^3/uL Lymph # (Auto) 0.2 L (1.2-3.8) 10^3/uL [place] # (Auto) 0.2 L (0.3-0.8) 10^3/uL Eos # (Auto) 0.1 (0.0-0.7) 10^3/uL Baso # (Auto) 0.0 (0.0-0.1) 10^3/uL Abs Immat Gran (auto) 0.02 (0.00-0.03) 10^3/uL Imm/Tot Granulo (auto) 0.3 (0.0-0.5) % PT 11.8 H (9.0-11.6) sec INR 1.13 APTT 27.2 (22.3-36.2) sec Sodium 139 (136-145) mmol/L Potassium 4.1 (3.5-5.1) mmol/L Chloride 103 (98-107) mmol/L Carbon Dioxide 29.7 (21.0-32.0) mmol/L Anion Gap 10.4 BUN 32.0 H (7.0-18.0) mg/dL Creatinine 1.93 H (0.55-1.02) mg/dL Est GFR ( Amer) 31 L (>=60) Est GFR (Non-Af Amer) 26 L (>=60) BUN/Creatinine Ratio 16.6 Glucose 159 H (74-106) mg/dL Lactate 1.9 (0.4-2.0) mmol/L Calcium 8.2 L (8.5-10.1) mg/dL Troponin I High Sens 19.3 (4.0-51.3) pg/mL NT-Pro-B Natriuret Pep 43892.0 H* (<=900.0) pg/mL ECG Data Attestation: I personally reviewed and interpreted this ECG as follows: (Atrial fibrillation with controlled ventricular response. No STEMI. Normal QTc.) Critical Care Time Critical Care Time Critical Care Time: Yes Total Critical Care Time: 35 Attestation: Critical Care Procedure Note Authorized and Performed by: Shiraz Yang DO Total critical care time: 35 min Due to a high probability of clinically significant, life threatening deterioration, the patient required my highest level of preparedness to intervene emergently and I personally spent this critical care time directly and personally managing the patient. This critical care time included obtaining a history; examining the patient; pulse oximetry; ordering and review of studies; arranging urgent treatment with development of a management plan; evaluation of patient's response to treatment; frequent reassessment; and, discussions with other providers. This critical care time was performed to assess and manage the high probability of imminent, life-threatening deterioration that could result in multi-organ failure. It was exclusive of separately billable procedures and treating other patients and teaching time. Please see MDM section and the rest of the note for further information on patient assessment and treatment. Discharge Plan Discharge Chief Complaint: Shortness of Breath/Dyspnea Clinical Impression: Acute and chronic respiratory failure with hypoxia, Acute decompensated heart failure, Chronic kidney disease (CKD) Patient Disposition: Admitted As Inpatient Time of Disposition Decision: 23:37 Condition: Fair Prescriptions / Home Meds: No Action polyethylene glycol 3350 [Miralax] 17 gram powder in packet 17 g PO DAILY PRN (Reason: constipation) magnesium oxide 400 mg magnesium tablet 800 mg PO TID Hold Instructions: dc date 02/10/24 diltiazem HCl 240 mg Capsule,Extended Release 24hr 240 mg PO QD 30 Days Qty: 30 0RF amoxicillin-pot clavulanate [Augmentin] 500-125 mg tablet 1 tab PO Q12H 7 Days Qty: 14 0RF oxycodone 5 mg tablet 5 mg PO Q6H PRN (Reason: pain) 1 Days Qty: 4 0RF acetaminophen 500 mg capsule 1,000 mg PO Q6H PRN (Reason: fever or pain) ascorbic acid (vitamin C) [Acerola C] 500 mg tablet,chewable 500 mg PO BID atorvastatin 40 mg tablet 40 mg PO .QHS bumetanide 2 mg tablet 2 mg PO DAILY ergocalciferol (vitamin D2) 1,250 mcg (50,000 unit) capsule 50,000 unit PO QWEEK Rx Instructions: EVERY SATURDAY ferrous sulfate [FeroSul] 325 mg (65 mg iron) tablet 325 mg PO BID insulin glargine 100 unit/mL (3 mL) insulin pen 10 unit subcut BID metoprolol tartrate [Lopressor] 100 mg tablet 100 mg PO BID midodrine 5 mg tablet 5 mg PO TIDWM Rx Instructions: HOLD IF SBP > 130 do not give last dose of day after 6PM or within 4 hrs of bedtime multivitamin [Daily Multi-Vitamin] Tablet 1 tab PO DAILY insulin aspart U-100 [Novolog FlexPen U-100 Insulin] 100 unit/mL (3 mL) insulin pen 4 - 14 sliding scale dose subcut ACHS Rx Instructions: 100-149 0 UNITS 150-199 4 UNITS 200-249 7 UNITS 250-299 10 UNITS 300-349 12 UNITS 350-400 14 UNITS pantoprazole 20 mg tablet,delayed release (DR/EC) 20 mg PO DAILY potassium chloride [Klor-Con] 20 mEq packet 20 meq PO DAILY sertraline [Zoloft] 50 mg tablet 50 mg PO DAILY tamsulosin [Flomax] 0.4 mg capsule 0.4 mg PO DAILY zinc sulfate 50 mg zinc (220 mg) capsule 50 mg PO DAILY Patient Comments: 01/25/24-02/08/24 FOR 14 DAYS ondansetron HCl 4 mg tablet 4 mg PO Q6H PRN (Reason: nausea and vomiting) Print Language: French Referrals: Physician,Non-Staff, MD [Primary Care Provider] - 1 week
[2024-03-16 22:23] LABS: Basophils Percent Auto 0.1 % (0.2-2.0); Eosinophils Absolute Auto 0.1 10^3/uL (0.0-0.7); Eosinophils Percent Auto 1.7 % (0.9-7.0); Hematocrit 32.8 % (36.0-48.0); Hemoglobin 10.2 g/dL (12.0-16.0); Immature Granulocytes Abs Auto 0.02 10^3/uL (0.00-0.03); Immature Granulocytes Pct Auto 0.3 % (0.0-0.5); Lymphocytes Absolute Auto 0.2 10^3/uL (1.2-3.8); Lymphocytes Percent Auto 3.1 % (20.5-60.0); Mean Corpuscular HGB Conc 31.1 g/dL (29.9-35.2); Mean Corpuscular Hemoglobin 29.5 pg (26.7-34.0); Mean Corpuscular Volume 94.8 fL (81.0-99.0); Mean Platelet Volume 11.3 fL (9.5-13.5); Monocytes Absolute Auto 0.2 10^3/uL (0.3-0.8); Monocytes Percent Auto 3.3 % (1.7-12.0); Neutrophils Absolute Auto 6.6 10^3/uL (1.4-6.5); Neutrophils Percent Auto 91.5 % (43.0-75.0); Platelet Count 113 10^3/uL (150-450); Red Blood Count 3.46 10^6/uL (4.20-5.40); White Blood Count 7.2 10^3/uL (4.0-11.0)
[2024-03-16 22:39] LABS: INR 1.13; Partial Thromboplastin Time 27.2 sec (22.3-36.2); Prothrombin Time 11.8 sec (9.0-11.6)
[2024-03-16 22:43] LABS: Lactate/Lactic Acid 1.9 mmol/L (0.4-2.0)
[2024-03-16 22:48] LABS: Anion Gap 10.4; BUN Creatinine Ratio 16.6; Calcium 8.2 mg/dL (8.5-10.1); Carbon Dioxide 29.7 mmol/L (21.0-32.0); Chloride 103 mmol/L (98-107); Estimated GFR (African America 31 (>=60); Estimated GFR (Non-African Ame 26 (>=60); Glucose 159 mg/dL (74-106); Potassium 4.1 mmol/L (3.5-5.1); Sodium 139 mmol/L (136-145); Troponin I High Sensitivity 19.3 pg/mL (4.0-51.3)
[2024-03-16] MEDS: IPRATROPIUM/ALBUTEROL SULFATE 3 ML AMPUL.NEB IH (22:55)
[2024-03-16] MEDS: BUMETANIDE 1 MG/4 ML VIAL 2 MG IVP (23:19)
[2024-03-16] MEDS: ONDANSETRON PF 4 MG/2 ML VIAL IV (23:20)
[2024-03-17] VITALS (70 sets, daily range): BP systolic 95–128; BP diastolic 54–83; PULSE 83–132; TEMP 36.3–36.7; O2SAT 91–98; BMI 42.6
[2024-03-17 02:20] LABS: Glucometer 178 mg/dL (74-106)
[2024-03-17] MEDS: ACETAMINOPHEN 325 MG TABLET 650 MG PO (02:43)
[2024-03-17] MEDS: HEPARIN SODIUM (PORCINE) 5,000 UNIT/ML VIAL 5000 UNIT SUBQ ×2 (02:44→12:03)
[2024-03-17] MEDS: LEVOFLOXACIN IN DEXTROSE 5 % 750 MG/150 ML IV.SOLN 100 MG IV (02:44)
[2024-03-17 05:33] LABS: PCO2 VBG 49.2 mmHg (40.0-52.0); pH VBG 7.374 (7.330-7.430)
[2024-03-17 05:38] LABS: Basophils Percent Auto 0.2 % (0.2-2.0); Eosinophils Percent Auto 0.2 % (0.9-7.0); Hematocrit 29.4 % (36.0-48.0); Hemoglobin 9.1 g/dL (12.0-16.0); Immature Granulocytes Abs Auto 0.02 10^3/uL (0.00-0.03); Immature Granulocytes Pct Auto 0.4 % (0.0-0.5); Lymphocytes Absolute Auto 0.2 10^3/uL (1.2-3.8); Lymphocytes Percent Auto 3.2 % (20.5-60.0); Mean Corpuscular Hemoglobin 29.1 pg (26.7-34.0); Mean Corpuscular Volume 93.9 fL (81.0-99.0); Mean Platelet Volume 11.8 fL (9.5-13.5); Monocytes Absolute Auto 0.1 10^3/uL (0.3-0.8); Monocytes Percent Auto 0.9 % (1.7-12.0); Neutrophils Absolute Auto 5.3 10^3/uL (1.4-6.5); Neutrophils Percent Auto 95.1 % (43.0-75.0); Platelet Count 90 10^3/uL (150-450); Red Blood Count 3.13 10^6/uL (4.20-5.40); Red Cell Distribution Width 16.9 % (11.0-15.0); White Blood Count 5.6 10^3/uL (4.0-11.0)
[2024-03-17 06:00] LABS: INR 1.17; Prothrombin Time 12.2 sec (9.0-11.6)
--- NOTE | 2024-03-17 06:00 | ECG_ITS ---
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
[2024-03-17 06:04] LABS: Alanine Aminotransferase 16 U/L (14-59); Albumin Globulin Ratio 0.6; Albumin Level 2.2 g/dL (3.4-5.0); Alkaline Phosphatase 140 U/L (46-116); Anion Gap 9.6; Aspartate Amino Transferase 17 U/L (15-37); BUN Creatinine Ratio 17.1; Bilirubin Total 0.6 mg/dL (0.2-1.0); Calcium 7.8 mg/dL (8.5-10.1); Carbon Dioxide 29.1 mmol/L (21.0-32.0); Chloride 105 mmol/L (98-107); Estimated GFR (African America 34 (>=60); Estimated GFR (Non-African Ame 28 (>=60); Globulin 3.7 g/dL; Glucose 184 mg/dL (74-106); Potassium 3.7 mmol/L (3.5-5.1); Sodium 140 mmol/L (136-145); Total Protein 5.9 g/dL (6.4-8.2); Troponin I High Sensitivity 19.6 pg/mL (4.0-51.3)
[2024-03-17 07:53] LABS: Glucometer 158 mg/dL (74-106)
[2024-03-17] MEDS: INSULIN ASPART 300 UNIT/3 ML PEN SUBQ ×4 (07:53→21:44)
[2024-03-17] MEDS: MAGNESIUM OXIDE 400 MG TABLET 800 MG PO ×2 (07:55→14:43)
[2024-03-17] MEDS: MIDODRINE HCL 5 MG TABLET PO ×3 (07:56→18:31)
--- NOTE | 2024-03-17 08:59 | W.PM.WC ---
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 Patient states she was told the measurements are getting better. The ulcer is currently being treated with medihoney gel and packing. Assessment of coccyx ulcer today does show some improvement, however there is an area of depth that is questionable to bony structure. While using a cotton tipped applicator, the base in one area does feel scratchy like there is something there. Unsure of what due to very small opening to this depth and cannot visualize the wound base. Overall ulcer is without signs of infection. There is some green/yellow drainage noted, which is most likely from the medihoney gel breaking down in the wound bed. No odor, redness or pain noted. Measurements: [id number]. Measurements done right sidelying. Measurements may change due to patient's position. Wound bed is red, moist, nongranular with 20% fibrin slough proximally. Bilateral heels intact, blanching pink skin. Right heel is slightly boggy. Extremities with healing bruises. Patient with mepliex foam dressing to left arm. Removed, area is healed. No new dressing placed. Patient also with midline incision that is now healed as well. Colostomy pouch intact. Draining semi-formed brown stool. Recommendations: Continue medihoney gel and fluffled gauze with ABD pad to coccyx ulcer daily. Reposition frequently Monitor skin for any skin tears, trauma. Patient's skin is very fragile. Float heels off bed. Photos and orders in chart. Please call [phone] with any questions or concerns. Galileo Choudhury, RN, BSN, CWON
--- NOTE | 2024-03-17 09:07 | P.HP_ITS ---
HPI H&P: HPI History of Present Illness Chief complaint: shortness of breath Narrative: This is a 68-year-old woman past medical history paroxysmal atrial fibrillation, prior history of atypical flutter status post ablation in 2021, history of coronary artery disease that was nonobstructive by cardiac catheterization in 2020, chronic systolic heart failure with last ejection fraction around 40%, adenocarcinoma of the rectum, chronic sacral decubitus ulcer and sacral osteomyelitis, history of GI bleed requiring exploratory laparotomy, laparotomy with small bowel resection and colostomy creation in September 2023, who now has indwelling Puga Catheter. She has not been maintained on anticoagulation therapy due to bleeding. Also with GERD, Diabetes, hypotension, HLD, depression. She presented to the ER from Nursing facility with increased shortness of breath that occurred last evening. She is not on chronic oxygen but was placed on oxygen at the nursing facility and it was increased to 3L in the ER. EMS treated her with duoneb and solumedrol. ER findings: WBC's 5.6, Hb 9.1, cr. 1.81, BUN 31, lactate 1.9, proBNP 18,925. CXR showed small bilateral pleural effusions This morning she is comfortably eating her breakfast, she still seems short of breath when talking. She has been able to keep her colorectal appointment and states that the surgeon is referring her to oncology for radiation and possible chemo in [place]. He also has seen Dr Arizmendi for her chronic anemia and she has a MRI of the abdomen scheduled tomorrow as outpatient. She continues to follow with [facility] [place] cardiology and notes recent medication changes. She denies chest pain, just shortness of breath, has chronic bilateral leg swelling but maybe worse the last few days. She has been taking her medications as prescribed. Opioid HPI Opioid Management Most Recent Pain and Opioid Data: Last Pain Scale 0 03/17/24 04:16 Last Pain Assessment 03/17/24 11:00 Last MAR Pain Assessment 03/17/24 04:16 Last ORT Total Score 1 03/17/24 01:24 Last ORT Risk Category Low Risk 03/17/24 01:24 Review of Systems ROS Narrative ROS: a complete review of systems were reviewed with patient and are positive as below or listed in History of Chief Complaint. General: no fever, chills, night sweats Head: no headache, trauma, visual changes, nausea or vomiting Skin: no reported rashes, itching or sores Eyes: no blurriness of vision Ears: no reported hearing loss, vertigo, earache, or tinnitus Throat: no sore throat, hoarseness, swelling of neck, or tongue pain Heart: no chest pain Lungs: no shortness of breath or cough GI: no diarrhea or vomiting/nausea Urinary: no urinary urgency, frequency or pain Neuro: no numbness or tingling HEM: no bleeding issues or bruising ENDO: no thyroid problems Psych: no anxiety or depression [facility] Medical History (Updated 03/16/24 @ 23:37 by Shiraz Yang MD) Atrial flutter with rapid ventricular response ?I48.92 - Unspecified atrial flutter (ICD-10) Acute on chronic blood loss anemia ?D62 - Acute posthemorrhagic anemia (ICD-10) Rectal bleed ?K62.5 - Hemorrhage of anus and rectum (ICD-10) Adenocarcinoma of rectum ?C20 - Malignant neoplasm of rectum (ICD-10) Adenocarcinoma of rectum ?C20 - Malignant neoplasm of rectum (ICD-10) GERD (gastroesophageal reflux disease) ?K21.9 - Gastro-esophageal reflux disease without esophagitis (ICD-10) CHF (congestive heart failure) ?I50.9 - Heart failure, unspecified (ICD-10) Depression ?F32.A - Depression, unspecified (ICD-10) Closed head injury ?S09.90XA - Unspecified injury of head, initial encounter (ICD-10) Post concussion syndrome ?F07.81 - Postconcussional syndrome (ICD-10) Neck pain ?M54.2 - Cervicalgia (ICD-10) Osteomyelitis of vertebra, sacral and sacrococcygeal region ?M46.28 - Osteomyelitis of vertebra, sacral and sacrococcygeal region (ICD- 10) GI hemorrhage ?K92.2 - Gastrointestinal hemorrhage, unspecified (ICD-10) Pressure ulcer, sacrum ?L89.159 - Pressure ulcer of sacral region, unspecified stage (ICD-10) Chronic a-fib ?I48.20 - Chronic atrial fibrillation, unspecified (ICD-10) CKD (chronic kidney disease) stage 3, GFR 30-59 ml/min ?N18.30 - Chronic kidney disease, stage 3 unspecified (ICD-10) DM2 (diabetes mellitus, type 2) ?E11.9 - Type 2 diabetes mellitus without complications (ICD-10) Hyperlipidemia ?E78.5 - Hyperlipidemia, unspecified (ICD-10) Essential hypertension ?I10 - Essential (primary) hypertension (ICD-10) HFrEF (heart failure with reduced ejection fraction) ?I50.20 - Unspecified systolic (congestive) heart failure (ICD-10) MDD (major depressive disorder) ?F32.9 - Major depressive disorder, single episode, unspecified (ICD-10) Muscle wasting and atrophy, not elsewhere classified, multiple sites ?M62.59 - Muscle wasting and atrophy, not elsewhere classified, multiple sites (ICD-10) Surgical History History of tonsillectomy ?Z90.89 - Acquired absence of other organs (ICD-10) Colostomy in place ?Z93.3 - Colostomy status (ICD-10) Family History Father Family history of myocardial infarction Family history of hypertension Mother Family history of CHF (congestive heart failure) Family history of cancer Family history of hypertension Grandmother Family history of diabetes mellitus Family history of hypertension Social History Within the past year, how often did you have a drink containing alcohol: never Within the past year, how often did you have six or more drinks on one occasion: never Score interpretation: A score less than 3 is consistent with normal alcohol consumption. Smoking status: Former smoker Non-prescribed substance use: denies use Previous occupational history: retired Highest level of school completed/degree received: some college, no degree Are you now , , , , never or living with a partner: In a typical week, how many times do you talk on the telephone with family, friends, or neighbors: 3 or more times per week How often do you get together with friends or relatives: 3 or more times per week How often do you attend evangelical or roman catholic services: 4 or more times per year Do you belong to any clubs or organizations such as evangelical groups unions, fraternal or athletic groups, or school groups: no Total score: 3 Score interpretation: A score of greater than or equal to 2 indicates the lowest level of social isolation. Little interest or pleasure in doing things: not at all Feeling down, depressed, or hopeless: not at all Feel stressed/tense/nervous/anxious/difficulty sleeping: not at all Do you think of yourself as: straight/heterosexual Gender Identity: female Meds Home Medications and Allergies Home Medications ?Medication ?Instructions ?Recorded ?Confirmed ?Type acetaminophen 500 mg capsule 1,000 mg PO Q6H PRN fever or pain 02/02/24 03/17/24 History ascorbic acid (vitamin C) 500 mg 500 mg PO BID 02/02/24 03/17/24 History chewable tablet (Acerola C) atorvastatin 40 mg tablet 40 mg PO .QHS 02/02/24 03/17/24 History bumetanide 2 mg tablet 2 mg PO DAILY 02/02/24 03/17/24 History ergocalciferol (vitamin D2) 1,250 50,000 unit PO QWEEK 02/02/24 03/17/24 History mcg (50,000 unit) capsule ferrous sulfate 325 mg (65 mg 325 mg PO BID 02/02/24 03/17/24 History iron) tablet (FeroSul) insulin aspart U-100 100 unit/mL 4 - 14 sliding scale dose subcut 02/02/24 03/17/24 History (3 mL) subcutaneous pen (Novolog ACHS FlexPen U-100 Insulin aspart) insulin glargine 100 unit/mL (3 10 unit subcut BID 02/02/24 03/17/24 History mL) subcutaneous pen metoprolol tartrate 100 mg tablet 100 mg PO BID 02/02/24 03/17/24 History (Lopressor) midodrine 5 mg tablet 5 mg PO TIDWM 02/02/24 03/17/24 History multivitamin (Daily Multi-Vitamin 1 tab PO DAILY 02/02/24 03/17/24 History tablet) ondansetron HCl 4 mg tablet 4 mg PO Q6H PRN nausea and vomiting 02/02/24 03/17/24 History pantoprazole 20 mg tablet,delayed 20 mg PO DAILY 02/02/24 03/17/24 History release potassium chloride 20 mEq oral 20 meq PO DAILY 02/02/24 03/17/24 History packet (Klor-Con) sertraline 50 mg tablet (Zoloft) 50 mg PO DAILY 02/02/24 03/17/24 History tamsulosin 0.4 mg capsule (Flomax) 0.4 mg PO DAILY 02/02/24 03/17/24 History zinc sulfate 50 mg zinc (220 mg) 50 mg PO DAILY 02/02/24 03/17/24 History capsule magnesium oxide 800 mg PO TID 02/04/24 03/17/24 History polyethylene glycol 3350 17 gram 17 g PO DAILY PRN constipation 02/04/24 03/17/24 History oral powder packet (Miralax) diltiazem HCl 240 mg 240 mg PO QD 30 days #30 caps 02/26/24 03/17/24 Rx capsule,extended release 24 hr oxycodone 5 mg tablet 5 mg PO Q6H PRN pain 1 day #4 tabs 02/26/24 03/17/24 Rx Allergies Allergy/AdvReac Type Severity Reaction Status Date / Time oats AdvReac Unknown Verified 02/02/24 16:53 artificial sweetners AdvReac Severe Migraine Uncoded 02/24/24 20:32 Exam Narrative Exam Narrative: General: Patient is alert, and oriented to person, place and time with normal affect, proper hygiene, some shortness of breath with conversing Skin: no visible rashes, or ulcers Head: atraumatic, acephalic Eyes: PERRLA, no nystagmus present, conjunctiva clear, no scleral icterus Ears: normal Tympanic Membrane, normal gross auditory acuity Nose: symmetric, no discharge, no maxillary or frontal sinus tenderness Neck: no masses palpated, normal thyroid Heart: irregular rate and rhythm, no murmurs/rubs/gallops Lungs: no audible wheezes, crackles and normal breath sounds all lung vega Abdomen: Normal audible bowel sounds, no distension, No palpable masses, no organomegaly, no rebound/guarding/ or rigidity Musculoskeletal: +2 pitting/swelling bilateral lower extremities Neuro: CN II-X grossly intact Constitutional Vital Signs, click to edit/add: Last Vital Signs Temp 97.8 F 03/17/24 07:47 Pulse 102 H 03/17/24 08:50 Resp 21 H 03/17/24 08:50 BP 109/68 03/17/24 08:00 Pulse Ox 97 03/17/24 08:50 O2 Del Method Nasal Cannula 03/17/24 05:08 O2 Flow Rate 3 03/17/24 07:47 Results Labs Labs: Short CBC 03/16/24 03/17/24 Range/Units 22:10 04:07 WBC 7.2 5.6 (4.0-11.0) 10^3/uL Hgb 10.2 L 9.1 L (12.0-16.0) g/dL Hct 32.8 L 29.4 L (36.0-48.0) % Plt Count 113 L 90 L (150-450) 10^3/uL BMP 03/16/24 03/17/24 22:10 04:07 Sodium 139 140 Potassium 4.1 3.7 Chloride 103 105 Carbon Dioxide 29.7 29.1 BUN 32.0 H 31.0 H Creatinine 1.93 H 1.81 H Glucose 159 H 184 H Calcium 8.2 L 7.8 L Liver Function 03/17/24 Range/Units 04:07 Total Bilirubin 0.6 (0.2-1.0) mg/dL AST 17 (15-37) U/L ALT 16 (14-59) U/L Alkaline Phosphatase 140 H (46-116) U/L Albumin 2.2 L (3.4-5.0) g/dL ABG ABG results: 03/17/24 04:07 VBG pH 7.374 VBG pCO2 49.2 Assessment and Plan Assessment and Plan (1) Acute decompensated heart failure: Assessment and Plan: Patient taking bumex 2mg PO daily, She was started on Bumex 2mg IV BID, continue fluid restriction of 1.5L, monitor in's/out's and daily weights. Echocardiogram was ordered today, Cardiology consult. (2) Acute and chronic respiratory failure with hypoxia: Assessment and Plan: patient denies chronic O2, she is currently 86% on room air, continue with 1-2 L NC oxygen to maintain sats above 90%. bilateral Pleural effusions seen on x-ray in the setting of decompensated heart failure causing hypoxia. continue diuresis. (3) Acute on chronic blood loss anemia: Assessment and Plan: Hb has been stable at 9.1, monitor, no acute blood loss currently. Not on any anticoagulation because of this; continue iron supplement (4) Adenocarcinoma of rectum: Assessment and Plan: following as outpatient for this (5) GERD (gastroesophageal reflux disease): Assessment and Plan: continue protonix Qualifiers: Esophagitis presence: without esophagitis Qualified Code(s): K21.9 - Gastro-esophageal reflux disease without esophagitis (6) Osteomyelitis of vertebra, sacral and sacrococcygeal region: Assessment and Plan: chronic, wound consult. Monitor (7) Pressure ulcer, sacrum: Assessment and Plan: see #6 Qualifiers: Pressure injury stage: pressure injury of deep tissue Qualified Code(s): L89.156 - Pressure-induced deep tissue damage of sacral region (8) CKD (chronic kidney disease) stage 3, GFR 30-59 ml/min: Assessment and Plan: currently at baseline Cr 1.8 Qualifiers: Chronic kidney disease stage 3 subtype: stage 3a (GFR 45-59) Qualified Code(s): N18.31 - Chronic kidney disease, stage 3a (9) DM2 (diabetes mellitus, type 2): Assessment and Plan: continue SSI, and long acting, diabetic diet Qualifiers: Chronic kidney disease stage: stage 3 (moderate) Chronic kidney disease stage 3 subtype: stage 3a (GFR 45-59) Diabetes mellitus complication detail: with chronic kidney disease Diabetes mellitus complication status: with kidney complications Diabetes mellitus buttermaker continuous churn insulin use: without long-term use Qualified Code(s): E11.22 - Type 2 diabetes mellitus with diabetic chronic kidney disease; N18.31 - Chronic kidney disease, stage 3a (10) Hyperlipidemia: Assessment and Plan: continue atorvastatin Qualifiers: Hyperlipidemia type: unspecified Qualified Code(s): E78.5 - Hyperlipidemia, unspecified (11) Essential hypertension: Assessment and Plan: continue metoprolol, and diltiazem (12) MDD (major depressive disorder): Assessment and Plan: continue zoloft Qualifiers: Active/Remission status: in full remission Major depression recurrence: recurrent Qualified Code(s): F33.42 - Major depressive disorder, recurrent, in full remission (13) Chronic a-fib: Assessment and Plan: not on anticoagulation for blood loss anemia, continue rate control with dilt and metoprolol. Plan Patient is full code patient is not on prophylaxis due to bleeding history Patient is inpatient status and expected to cross 2 midnights for hospital necessary care: IV diuresis and treatment of hypoxia, heart failure. Urinary Catheter Management Urinary Catheter Management Urethral: Cath placed during this visit: no
--- NOTE | 2024-03-17 09:29 | CA_ITS ---
Patient Name: HARRIS CASTREJON MR#: [id number] : 1955 Exam Date: 03/17/2024 Ordering Doctor: Mandi Gracia . ECHOCARDIOGRAM REPORT PROCEDURE: CA ECHO DOPPLER COMPLETE INDICATIONS: acute CHF COMPARISON: None. DESCRIPTION: COMPLETE ECHOCARDIOGRAM Real-time transthoracic echocardiography with 2D, M-mode, spectral and color flow Doppler performed. QUALITY: Technical quality was adequate. LEFT VENTRICLE: Normal chamber size. Mild concentric left ventricular hypertrophy. Global left ventricular systolic function is difficult to assess but appears at the lower limits of normal. LV EF: Visual estimation of left ventricular ejection fraction is 50%. DIASTOLIC: Not adequately assessed due to heart rhythm. ATRIAL SEPTUM: LEFT ATRIUM: Moderate dilatation. RIGHT ATRIUM: Moderate dilatation. RIGHT VENTRICLE: Normal chamber size. Normal right ventricular systolic function. TRICUSPID VALVE: Normal mobility and thickness. No stenosis with moderate regurgitation. Mild pulmonary hypertension. RVSP 42 mmHg MITRAL VALVE: Normal mobility and thickness. No evidence of mitral valve stenosis. Mild mitral annular calcification. Trivial mitral regurgitation. AORTIC VALVE: Normal trileaflet appearance. Thickened aortic valve. Normal leaflet mobility. No evidence of aortic valve stenosis. No aortic regurgitation. AORTIC ROOT: Normal diameter and appearance. PULMONIC VALVE: Normal thickness and mobility. No stenosis. No regurgitation. PERICARDIUM: No evidence of pericardial effusion. IVC: Normal size with no collapse. PLEURA: CONCLUSION: 1. Mild concentric left ventricular hypertrophy. Left ventricular systolic function is difficult to assess due to rhythm but appears at the lower limits of normal. LVEF is estimated at 50%. 2. Normal right ventricular size and systolic function. 3. Moderate biatrial dilatation. 4. Moderate tricuspid regurgitation. 5. Mildly elevated right-sided pressures. 6. The patient appears to be in atrial fibrillation during the exam. Adult Echocardiography Procedure Report Left Ventricle LVEDD (3.7 - 5.6 cm): 5.21 cm LVESD (2.2 - 4.0 cm): 4.13 cm LVIVS thickness (0.6 - 1.2 cm): 1.23 cm LVPW thickness (0.5 - 1.0 cm): 1.08 cm LVOT Max Gradient: 1.48 mm[Hg] LVOT Area (cm2): 0.61 m/s Peak Velocity (LVOT): 0.61 m/s Mean Velocity (LVOT): 0.43 m/s LVOT Diameter 2.33 cm Left Atrium Left Atrium Systolic Dimension: 4.83 cm Mitral Valve MV E to A Ratio: 194.50 Mitral Valve A-Wave Peak Velocity: 0.00 m/s Mitral Valve E-Wave Peak Velocity: 0.92 m/s Right Ventricle RV Internal Diastolic Dimension: 3.63 cm Aorta AO Root Diam: 3.33 cm Aortic Valve AoV Area (Peak Austyn): 3.04 cm2, 3.04 cm2 AoV Area (VTI): 3.87 cm2, 3.87 cm2 Peak Velocity(Antegrade Flow): 0.85 m/s Peak Gradient(Antegrade Flow): 2.92 mm[Hg] Mean Velocity(Antegrade Flow): 0.55 m/s Mean Gradient(Antegrade Flow): 1.39 mm[Hg] Velocity Time Integral: 13.58 cm Tricuspid Valve Peak Velocity (Regurgitant Flow): 2.59 m/s, 2.47 m/s, 2.93 m/s Pulmonic Valve Peak Velocity: 0.60 m/s Peak Gradient: 1.57 mm[Hg], 1.27 mm[Hg] Right Atrium Right Atrium Systolic Pressure: 94.17 ml, 94.17 ml Dictated by: Héctor Fisher M.D. on 03/17/2024 at 13:10 Approved by: Héctor Fisher M.D. on 03/17/2024 at 13:14
[2024-03-17] MEDS: FERROUS SULFATE 325 MG TABLET PO ×2 (09:34→21:38)
[2024-03-17] MEDS: OMEPRAZOLE 20 MG CAPSULE.DR PO (09:34)
[2024-03-17] MEDS: METOPROLOL TARTRATE 100 MG TABLET PO ×2 (09:34→21:38)
[2024-03-17] MEDS: ASCORBIC ACID 500 MG TABLET PO ×2 (09:34→21:38)
[2024-03-17] MEDS: MULTIVITAMIN TABLET 1 TAB PO (09:34)
[2024-03-17] MEDS: BUMETANIDE 1 MG/4 ML VIAL 2 MG IVP ×2 (09:34→21:38)
[2024-03-17] MEDS: DILTIAZEM HCL 240 MG CAP.ER.24H PO (09:42)
[2024-03-17] MEDS: INSULIN DETEMIR 300 UNIT/3 ML INSULN.PEN 10 UNIT SQ ×2 (09:57→21:45)
[2024-03-17] MEDS: POTASSIUM CHLORIDE 10 MEQ ER TABLET 20 MEQ PO (09:58)
[2024-03-17] MEDS: SERTRALINE HCL 50 MG TABLET PO (09:58)
[2024-03-17] MEDS: ZINC GLUCONATE 50 MG TABLET PO (09:58)
--- NOTE | 2024-03-17 10:38 | SWNOTE1 ---
MARILOU met with pt to discuss dc needs. Pt is from [facility]. She has been there for a little over a month. She voiced she really likes it there, much better than [facility] in [place]. Pt voiced she was doing well with therapy and felt she was getting stronger. Pt's plan is to return to [facility] at discharge. Important Message from Medicare reviewed and discussed with patient. Pt. verbalized understanding and signed the form. Original given to patient and copy placed in patient?s chart.
[2024-03-17 12:04] LABS: Glucometer 241 mg/dL (74-106)
--- NOTE | 2024-03-17 12:27 | CM.NOTE ---
Rounds made with Dr. Gracia. Dr. Gracia reviews plan of care (Echo ordered, wean oxygen and IV antibiotic) with Ms. Arenas. Susan verbalizes understanding. Await Cardiology Consult. No discharge today.
--- NOTE | 2024-03-17 12:44 | SWNOTE1 ---
Updates sent to [facility]. Updates included face sheet, ED note, H&P, PT/OT, nursing notes, vitals, diagnostic imaging, labs, and med list.
--- NOTE | 2024-03-17 12:45 | PC.NURSE ---
Patient stable and transferred to med-surg room 213, bedside report given to ALONDRA Godinez
--- NOTE | 2024-03-17 16:46 | P.CACN_ITS ---
History of Present Illness History of Present Illness Consult date: 03/17/24 Requesting physician: Mandi Gracia Consult reason: atrial fibrillation Chief complaint: shortness of breath Narrative: 68year-old woman with paroxysmal atrial fibrillation with RVR, prior history of typical flutter status post ablation in [address] Dudley Weinberg @ [facility], history of coronary artery disease that was nonobstructive by cardiac catheterization in 2020, chronic systolic heart failure with last ejection fraction around 40-45%, adenocarcinoma of the rectum, chronic sacral decubitus ulcer and sacral osteomyelitis, history of GI bleed requiring exploratory laparotomy laparotomy with small bowel resection and colostomy creation in September 2023 who had multiple issues and admission with arial fibrillation with rapid ventricular response. She had prior admission with GI bleed and so warfarin was held due to that in the past. She was readmitted with shortness fo breath Since admission she fwlt better with diuresis but short of breath when talking. She is following up with [facility] for XRT and Chemo. She is being evaluated for chronic anemia and has MRI of the abdomen scheduled tomorrow as outpatient. She denies chest pain, just shortness of breath, has chronic bilateral leg swelling but maybe worse the last few days. Her admssion EKG reveals Afib with VR in 100's. Review of Systems ROS Status of ROS 10 or more systems reviewed and unremark able except as noted in history and below [facility] Medical History (Updated 03/16/24 @ 23:37 by Shiraz Yang MD) Atrial flutter with rapid ventricular response ?I48.92 - Unspecified atrial flutter (ICD-10) Acute on chronic blood loss anemia ?D62 - Acute posthemorrhagic anemia (ICD-10) Rectal bleed ?K62.5 - Hemorrhage of anus and rectum (ICD-10) Adenocarcinoma of rectum ?C20 - Malignant neoplasm of rectum (ICD-10) Adenocarcinoma of rectum ?C20 - Malignant neoplasm of rectum (ICD-10) GERD (gastroesophageal reflux disease) ?K21.9 - Gastro-esophageal reflux disease without esophagitis (ICD-10) CHF (congestive heart failure) ?I50.9 - Heart failure, unspecified (ICD-10) Depression ?F32.A - Depression, unspecified (ICD-10) Closed head injury ?S09.90XA - Unspecified injury of head, initial encounter (ICD-10) Post concussion syndrome ?F07.81 - Postconcussional syndrome (ICD-10) Neck pain ?M54.2 - Cervicalgia (ICD-10) Osteomyelitis of vertebra, sacral and sacrococcygeal region ?M46.28 - Osteomyelitis of vertebra, sacral and sacrococcygeal region (ICD- 10) GI hemorrhage ?K92.2 - Gastrointestinal hemorrhage, unspecified (ICD-10) Pressure ulcer, sacrum ?L89.159 - Pressure ulcer of sacral region, unspecified stage (ICD-10) Chronic a-fib ?I48.20 - Chronic atrial fibrillation, unspecified (ICD-10) CKD (chronic kidney disease) stage 3, GFR 30-59 ml/min ?N18.30 - Chronic kidney disease, stage 3 unspecified (ICD-10) DM2 (diabetes mellitus, type 2) ?E11.9 - Type 2 diabetes mellitus without complications (ICD-10) Hyperlipidemia ?E78.5 - Hyperlipidemia, unspecified (ICD-10) Essential hypertension ?I10 - Essential (primary) hypertension (ICD-10) HFrEF (heart failure with reduced ejection fraction) ?I50.20 - Unspecified systolic (congestive) heart failure (ICD-10) MDD (major depressive disorder) ?F32.9 - Major depressive disorder, single episode, unspecified (ICD-10) Muscle wasting and atrophy, not elsewhere classified, multiple sites ?M62.59 - Muscle wasting and atrophy, not elsewhere classified, multiple sites (ICD-10) Surgical History History of tonsillectomy ?Z90.89 - Acquired absence of other organs (ICD-10) Colostomy in place ?Z93.3 - Colostomy status (ICD-10) Family History Father Family history of myocardial infarction Family history of hypertension Mother Family history of CHF (congestive heart failure) Family history of cancer Family history of hypertension Grandmother Family history of diabetes mellitus Family history of hypertension Social History Within the past year, how often did you have a drink containing alcohol: never Within the past year, how often did you have six or more drinks on one occasion: never Score interpretation: A score less than 3 is consistent with normal alcohol consumption. Smoking status: Former smoker Non-prescribed substance use: denies use Previous occupational history: retired Highest level of school completed/degree received: some college, no degree Are you now , , , , never or living with a partner: In a typical week, how many times do you talk on the telephone with family, friends, or neighbors: 3 or more times per week How often do you get together with friends or relatives: 3 or more times per week How often do you attend spiritism or anglican services: 4 or more times per year Do you belong to any clubs or organizations such as spiritism groups unions, Symonics or athletic groups, or school groups: no Total score: 3 Score interpretation: A score of greater than or equal to 2 indicates the lowest level of social isolation. Little interest or pleasure in doing things: not at all Feeling down, depressed, or hopeless: not at all Feel stressed/tense/nervous/anxious/difficulty sleeping: not at all Do you think of yourself as: straight/heterosexual Gender Identity: female Meds Home Medications and Allergies Home Medications ?Medication ?Instructions ?Recorded ?Confirmed ?Type acetaminophen 500 mg capsule 1,000 mg PO Q6H PRN fever or pain 02/02/24 03/17/24 History ascorbic acid (vitamin C) 500 mg 500 mg PO BID 02/02/24 03/17/24 History chewable tablet (Acerola C) atorvastatin 40 mg tablet 40 mg PO .QHS 02/02/24 03/17/24 History bumetanide 2 mg tablet 2 mg PO DAILY 02/02/24 03/17/24 History ergocalciferol (vitamin D2) 1,250 50,000 unit PO QWEEK 02/02/24 03/17/24 History mcg (50,000 unit) capsule ferrous sulfate 325 mg (65 mg 325 mg PO BID 02/02/24 03/17/24 History iron) tablet (FeroSul) insulin aspart U-100 100 unit/mL 4 - 14 sliding scale dose subcut 02/02/24 03/17/24 History (3 mL) subcutaneous pen (Novolog ACHS FlexPen U-100 Insulin aspart) insulin glargine 100 unit/mL (3 10 unit subcut BID 02/02/24 03/17/24 History mL) subcutaneous pen metoprolol tartrate 100 mg tablet 100 mg PO BID 02/02/24 03/17/24 History (Lopressor) midodrine 5 mg tablet 5 mg PO TIDWM 02/02/24 03/17/24 History multivitamin (Daily Multi-Vitamin 1 tab PO DAILY 02/02/24 03/17/24 History tablet) ondansetron HCl 4 mg tablet 4 mg PO Q6H PRN nausea and vomiting 02/02/24 03/17/24 History pantoprazole 20 mg tablet,delayed 20 mg PO DAILY 02/02/24 03/17/24 History release potassium chloride 20 mEq oral 20 meq PO DAILY 02/02/24 03/17/24 History packet (Klor-Con) sertraline 50 mg tablet (Zoloft) 50 mg PO DAILY 02/02/24 03/17/24 History tamsulosin 0.4 mg capsule (Flomax) 0.4 mg PO DAILY 02/02/24 03/17/24 History zinc sulfate 50 mg zinc (220 mg) 50 mg PO DAILY 02/02/24 03/17/24 History capsule magnesium oxide 800 mg PO TID 02/04/24 03/17/24 History polyethylene glycol 3350 17 gram 17 g PO DAILY PRN constipation 02/04/24 03/17/24 History oral powder packet (Miralax) diltiazem HCl 240 mg 240 mg PO QD 30 days #30 caps 02/26/24 03/17/24 Rx capsule,extended release 24 hr oxycodone 5 mg tablet 5 mg PO Q6H PRN pain 1 day #4 tabs 02/26/24 03/17/24 Rx Allergies Allergy/AdvReac Type Severity Reaction Status Date / Time oats AdvReac Unknown Verified 02/02/24 16:53 artificial sweetners AdvReac Severe Migraine Uncoded 02/24/24 20:32 Exam Narrative Exam Narrative: General: Patient is alert, and oriented to person, place and time with normal affect, proper hygiene, some shortness of breath with conversing Skin: no visible rashes, or ulcers Head: atraumatic, acephalic Eyes: PERRLA, no nystagmus present, conjunctiva clear, no scleral icterus Ears: normal Tympanic Membrane, normal gross auditory acuity Nose: symmetric, no discharge, no maxillary or frontal sinus tenderness Neck: no masses palpated, normal thyroid Heart: irregular rate and rhythm, no murmurs/rubs/gallops Lungs: no audible wheezes, crackles and normal breath sounds all lung vega Abdomen: Normal audible bowel sounds, no distension, No palpable masses, no organomegaly, no rebound/guarding/ or rigidity Musculoskeletal: +2 pitting/swelling bilateral lower extremities Neuro: CN II-X grossly intact Constitutional Vital Signs, click to edit/add: Last Vital Signs Temp 97.6 F 03/17/24 11:50 Pulse 98 H 03/17/24 15:57 Resp 25 H 03/17/24 12:50 BP 122/83 03/17/24 11:50 Pulse Ox 96 03/17/24 12:50 O2 Del Method Nasal Cannula 03/17/24 11:24 O2 Flow Rate 2 03/17/24 11:50 Results Labs and Meds Lab results: Cardiac Enzymes 03/17/24 Range/Units 04:07 AST 17 (15-37) U/L Coagulation 03/16/24 03/17/24 Range/Units 22:10 04:07 PT 11.8 H 12.2 H (9.0-11.6) sec APTT 27.2 (22.3-36.2) sec CBC 03/16/24 03/17/24 Range/Units 22:10 04:07 WBC 7.2 5.6 (4.0-11.0) 10^3/uL RBC 3.46 L 3.13 L (4.20-5.40) 10^6/uL Hgb 10.2 L 9.1 L (12.0-16.0) g/dL Hct 32.8 L 29.4 L (36.0-48.0) % Plt Count 113 L 90 L (150-450) 10^3/uL Neut # (Auto) 6.6 H 5.3 (1.4-6.5) 10^3/uL Lymph # (Auto) 0.2 L 0.2 L (1.2-3.8) 10^3/uL [place] # (Auto) 0.2 L 0.1 L (0.3-0.8) 10^3/uL Eos # (Auto) 0.1 0.0 (0.0-0.7) 10^3/uL Baso # (Auto) 0.0 0.0 (0.0-0.1) 10^3/uL Comprehensive Metabolic Panel 03/16/24 03/17/24 Range/Units 22:10 04:07 Sodium 139 140 (136-145) mmol/L Potassium 4.1 3.7 (3.5-5.1) mmol/L Chloride 103 105 (98-107) mmol/L Carbon Dioxide 29.7 29.1 (21.0-32.0) mmol/L BUN 32.0 H 31.0 H (7.0-18.0) mg/dL Creatinine 1.93 H 1.81 H (0.55-1.02) mg/dL Glucose 159 H 184 H (74-106) mg/dL Calcium 8.2 L 7.8 L (8.5-10.1) mg/dL AST 17 (15-37) U/L ALT 16 (14-59) U/L Alkaline Phosphatase 140 H (46-116) U/L Total Protein 5.9 L (6.4-8.2) g/dL Albumin 2.2 L (3.4-5.0) g/dL Intake and Output 03/17/24 03/17/24 03/17/24 07:59 15:59 23:59 Intake Total 250 / 250 190 / 430 240 / 430 Output Total 740 / 990 700 / 1100 400 / 1100 Balance -490 / -740 -510 / -670 -160 / -670 Intake: Oral 100 / 100 190 / 430 240 / 430 IV 150 / 150 Levofloxacin in Dextrose 5 % 150 / 150 750 mg In 150 ml @ 100 mls/hr IV Q24H [facility] Rx#:[id number] Output: Stool 90 / 90 Other 150 / 150 Urine Amount (Catheter) 650 / 900 700 / 950 250 / 950 Urethral 650 / 900 700 / 950 250 / 950 Other: Weight 116.1 kg Imaging and Cardiology ECG results: report reviewed EKG Interpretation ECG shows: tachycardia and atrial fibrillation Assessment and Plan Assessment and Plan (1) Acute decompensated heart failure: (2) Acute and chronic respiratory failure with hypoxia: (3) Acute on chronic blood loss anemia: (4) Adenocarcinoma of rectum: (5) GERD (gastroesophageal reflux disease): Qualifiers: Esophagitis presence: without esophagitis Qualified Code(s): K21.9 - Gastro-esophageal reflux disease without esophagitis (6) Osteomyelitis of vertebra, sacral and sacrococcygeal region: (7) Pressure ulcer, sacrum: Qualifiers: Pressure injury stage: pressure injury of deep tissue Qualified Code(s): L89.156 - Pressure-induced deep tissue damage of sacral region (8) CKD (chronic kidney disease) stage 3, GFR 30-59 ml/min: Qualifiers: Chronic kidney disease stage 3 subtype: stage 3a (GFR 45-59) Qualified Code(s): N18.31 - Chronic kidney disease, stage 3a (9) DM2 (diabetes mellitus, type 2): Qualifiers: Chronic kidney disease stage: stage 3 (moderate) Chronic kidney disease stage 3 subtype: stage 3a (GFR 45-59) Diabetes mellitus complication detail: with chronic kidney disease Diabetes mellitus complication status: with kidney complications Diabetes mellitus middle or intermediate school principal insulin use: without nursing home use Qualified Code(s): E11.22 - Type 2 diabetes mellitus with diabetic chronic kidney disease; N18.31 - Chronic kidney disease, stage 3a (10) Hyperlipidemia: Qualifiers: Hyperlipidemia type: unspecified Qualified Code(s): E78.5 - Hyperlipidemia, unspecified (11) Essential hypertension: (12) MDD (major depressive disorder): Qualifiers: Active/Remission status: in full remission Major depression recurrence: recurrent Qualified Code(s): F33.42 - Major depressive disorder, recurrent, in full remission (13) Chronic a-fib: Plan Pt has evidence of Afib with varying VR. At this stage the aim would be to have a VR in 90s. Can adjust AV nuha blocking agents for this purpose. Ct diuretics as needed to ttarget O2 sats >96% and wean off O2 as improvement occurs. If it is such that her Afib RVR is causing multiple hospitalization, then consideration for PPM and AVN ablation can be entertained, if there is less risk with infection as an issue, especially with sacral ulcer.
[2024-03-17 17:46] LABS: Glucometer 198 mg/dL (74-106)
[2024-03-17 21:34] LABS: Glucometer 158 mg/dL (74-106)
[2024-03-17] MEDS: ATORVASTATIN CALCIUM 40 MG TABLET PO (21:38)
[2024-03-17] MEDS: JUVEN PACKET 1 PACKET PO (21:38)
[2024-03-17] MEDS: PROSTAT 15 GM PROTEIN/100 CAL 30 ML LIQUID PACKET PO (21:38)
[2024-03-18] VITALS (11 sets, daily range): BP systolic 108–139; BP diastolic 58–63; PULSE 77–120; TEMP 36.4–37.1; O2SAT 92–96
[2024-03-18] MEDS: HEPARIN SODIUM (PORCINE) 5,000 UNIT/ML VIAL 5000 UNIT SUBQ (01:36)
[2024-03-18 05:01] LABS: Hematocrit 29.6 % (36.0-48.0); Hemoglobin 9.3 g/dL (12.0-16.0); Immature Granulocytes Abs Auto 0.02 10^3/uL (0.00-0.03); Immature Granulocytes Pct Auto 0.3 % (0.0-0.5); Lymphocytes Absolute Auto 0.6 10^3/uL (1.2-3.8); Lymphocytes Percent Auto 8.1 % (20.5-60.0); Mean Corpuscular HGB Conc 31.4 g/dL (29.9-35.2); Mean Corpuscular Hemoglobin 29.3 pg (26.7-34.0); Mean Corpuscular Volume 93.4 fL (81.0-99.0); Mean Platelet Volume 11.7 fL (9.5-13.5); Monocytes Absolute Auto 0.7 10^3/uL (0.3-0.8); Neutrophils Absolute Auto 5.7 10^3/uL (1.4-6.5); Neutrophils Percent Auto 81.6 % (43.0-75.0); Platelet Count 100 10^3/uL (150-450); Red Blood Count 3.17 10^6/uL (4.20-5.40); Red Cell Distribution Width 17.1 % (11.0-15.0); White Blood Count 6.9 10^3/uL (4.0-11.0)
[2024-03-18 05:32] LABS: Alanine Aminotransferase 17 U/L (14-59); Albumin Globulin Ratio 0.6; Albumin Level 2.2 g/dL (3.4-5.0); Alkaline Phosphatase 150 U/L (46-116); Anion Gap 9.2; Aspartate Amino Transferase 29 U/L (15-37); BUN Creatinine Ratio 19.9; Bilirubin Total 0.5 mg/dL (0.2-1.0); Calcium 8.3 mg/dL (8.5-10.1); Carbon Dioxide 29.7 mmol/L (21.0-32.0); Chloride 106 mmol/L (98-107); Estimated GFR (African America 33 (>=60); Estimated GFR (Non-African Ame 27 (>=60); Globulin 3.8 g/dL; Glucose 92 mg/dL (74-106); Potassium 3.9 mmol/L (3.5-5.1); Sodium 141 mmol/L (136-145)
[2024-03-18 07:34] LABS: Glucometer 90 mg/dL (74-106)
--- NOTE | 2024-03-18 08:23 | XR_ITS ---
The [address] [address] Patient Name: HARRIS CASTREJON MRN: [id number] date: 1955 Sex: F Assigned Patient Location: [place] Current Patient Location: Accession/Order Number: [id number] Exam Date: 03/18/2024 09:00 Report Date: 03/18/2024 09:35 At the request of: CABRERA BOSS Procedure: XR chest 1V EXAMINATION: XR chest 1V HISTORY: CHF, SOB COMPARISON: XR chest 03/16/2024 FINDINGS: LUNGS: Underexpanded lungs with mild haziness within lung bases, left greater than right. VASCULATURE: No increased pulmonary vasculature. PLEURA: No pneumothorax, effusion, or pleural thickening. CARDIAC: Stable cardiomegaly. MEDIASTINUM: No visible mass or adenopathy. BONES: No fracture or visible bone lesion. OTHER: Negative. XR/XR chest 1V IMPRESSION: 1. Low lung volume examination with trace amount of bibasilar atelectasis or infiltrates; less then previously seen. Electronically authenticated by: REGINALD MATTHEWS Date: 03/18/2024 09:35
--- NOTE | 2024-03-18 08:24 | PM.DS1 ---
DS: Providers Provider Date of admission: 03/17/24 01:08 Primary care physician: Non-Staff Physician, Admitting clinician: Héctor Wolf Consults: 03/17/24 00:07 Consult to Cardiology Routine Reason for consultation: CHF Exacerb Has provider been notified: No Occupational Therapy Eval and Treat Routine Reason for consultation: weakness Has provider been notified: No Physical Therapy Eval and Treat Routine Reason for consultation: weakness 03/17/24 03:33 Consult to Wound Care Routine Consulting Provider: Galileo Choudhury Reason for consultation: rectal wound/colostomy Has provider been notified: No Attending physician on discharge: Mandi Gracia DS: Diagnosis Discharge Diagnosis (1) Acute decompensated heart failure: (2) Acute and chronic respiratory failure with hypoxia: (3) Acute on chronic blood loss anemia: (4) Adenocarcinoma of rectum: (5) GERD (gastroesophageal reflux disease): Qualifiers: Esophagitis presence: without esophagitis Qualified Code(s): K21.9 - Gastro-esophageal reflux disease without esophagitis (6) Osteomyelitis of vertebra, sacral and sacrococcygeal region: (7) Pressure ulcer, sacrum: Qualifiers: Pressure injury stage: pressure injury of deep tissue Qualified Code(s): L89.156 - Pressure-induced deep tissue damage of sacral region (8) CKD (chronic kidney disease) stage 3, GFR 30-59 ml/min: Qualifiers: Chronic kidney disease stage 3 subtype: stage 3a (GFR 45-59) Qualified Code(s): N18.31 - Chronic kidney disease, stage 3a (9) DM2 (diabetes mellitus, type 2): Qualifiers: Chronic kidney disease stage: stage 3 (moderate) Chronic kidney disease stage 3 subtype: stage 3a (GFR 45-59) Diabetes mellitus complication detail: with chronic kidney disease Diabetes mellitus complication status: with kidney complications Diabetes mellitus stock hanger insulin use: without stock hanger use Qualified Code(s): E11.22 - Type 2 diabetes mellitus with diabetic chronic kidney disease; N18.31 - Chronic kidney disease, stage 3a (10) Hyperlipidemia: Qualifiers: Hyperlipidemia type: unspecified Qualified Code(s): E78.5 - Hyperlipidemia, unspecified (11) Essential hypertension: (12) MDD (major depressive disorder): Qualifiers: Active/Remission status: in full remission Major depression recurrence: recurrent Qualified Code(s): F33.42 - Major depressive disorder, recurrent, in full remission (13) Chronic a-fib: DS: Summary Hospital Course Hospital Course: This is a 68-year-old woman past medical history paroxysmal atrial fibrillation, prior history of atypical flutter status post ablation in 2021, history of coronary artery disease that was nonobstructive by cardiac catheterization in 2020, chronic systolic heart failure with last ejection fraction around 40%, adenocarcinoma of the rectum, chronic sacral decubitus ulcer and sacral osteomyelitis, history of GI bleed requiring exploratory laparotomy, laparotomy with small bowel resection and colostomy creation in September 2023, who now has indwelling Puga Catheter. She has not been maintained on anticoagulation therapy due to bleeding. Also with GERD, Diabetes, hypotension, HLD, depression. She presented to the ER from Nursing facility with increased shortness of breath that occurred last evening. She is not on chronic oxygen but was placed on oxygen at the nursing facility and it was increased to 3L in the ER. EMS treated her with duoneb and solumedrol. ER findings: WBC's 5.6, Hb 9.1, cr. 1.81, BUN 31, lactate 1.9, proBNP 18,925. CXR showed small bilateral pleural effusions. Patient was admitted for diuresis for Acute exacerbation of her Chronic combined heart failure. Patient diuresed well with Bumex 2mg IV BID. Cardiology consult recommending optimizing her current Afib medications but at the time of discharge her HR was in the 90's. There was no specific recommendations for medication adjustments. She initially had hypoxia that corrected with Diuresis and at the time of discharge was not requiring oxygen saturations to maintain >90%. Her shortness of breath has improved. We attempted to call and make cardiology appt for follow up but the office is closed today. Will leave the number for the [facility] to provide that follow up for the patient. She was also rescheduled her MRI that was suppose to be performed outpatient today. Appointment time is listed below. Her HB remained stable and was 9.3 at the time of discharge. She has had no active bleeding. She will continue outpatient follow ups as scheduled with colorectal and hematology. Echocardiogram was also performed this visit and discussed with patient. No changes to home medications. She will be discharged back to the [facility] nursing [facility]. Patient also with UTI, will treat based on previous cultures with Levaquin 750mg daily for 3 more days to total 5. Status at Discharge Functional status at discharge: bed bound Overall status at discharge: patient is back to baseline Time Spent with Patient Time attestation: Total time spent providing and/or coordinating discharge services: Time spent: greater than 30 minutes Exam Narrative Exam Narrative: General: Patient is alert, and oriented to person, place and time with normal affect, proper hygiene Skin: no visible rashes, or ulcers, but multiple ecchymosis on the forearms that was present on admission exam. Please see wound consult/note for documentation on sacral wound Head: atraumatic, acephalic Eyes: PERRLA, no nystagmus present, conjunctiva clear, no scleral icterus Ears: normal gross auditory acuity Nose: symmetric, no discharge, no maxillary or frontal sinus tenderness Neck: no masses palpated, normal thyroid Heart: irregular rhythm normal rate, no murmurs/rubs/gallops Lungs: no audible wheezes, crackles and normal breath sounds all lung vega Abdomen: Normal audible bowel sounds, no distension, No palpable masses, no organomegaly, no rebound/guarding/ or rigidity Musculoskeletal: +1 pitting/swelling bilateral lower extremities Neuro: CN II-X grossly intact Constitutional Vital Signs, click to edit/add: Last Vital Signs Temp 98.7 F 03/18/24 03:14 Pulse 77 03/18/24 08:00 Resp 18 03/18/24 07:46 BP 108/63 03/18/24 03:14 Pulse Ox 94 L 03/18/24 05:30 O2 Del Method Nasal Cannula 03/18/24 05:30 O2 Flow Rate 1 03/18/24 05:30 DS: Data Data Completed and Pending Labs on day of discharge: Labs from last 24 hours 03/18/24 03/18/24 03/17/24 07:33 03:49 21:30 WBC 6.9 RBC 3.17 L Hgb 9.3 L Hct 29.6 L MCV 93.4 MCH 29.3 MCHC 31.4 RDW 17.1 H Plt Count 100 L MPV 11.7 Neut % (Auto) 81.6 H Lymph % (Auto) 8.1 L [place] % (Auto) 10.0 Eos % (Auto) 0.0 L Baso % (Auto) 0.0 L Neut # (Auto) 5.7 Lymph # (Auto) 0.6 L [place] # (Auto) 0.7 Eos # (Auto) 0.0 Baso # (Auto) 0.0 Abs Immat Gran (auto) 0.02 Imm/Tot Granulo (auto) 0.3 Sodium 141 Potassium 3.9 Chloride 106 Carbon Dioxide 29.7 Anion Gap 9.2 BUN 37.0 H Creatinine 1.86 H Est GFR ( Amer) 33 L Est GFR (Non-Af Amer) 27 L BUN/Creatinine Ratio 19.9 Glucose 92 Calcium 8.3 L Total Bilirubin 0.5 AST 29 ALT 17 Alkaline Phosphatase 150 H NT-Pro-B Natriuret Pep 75464.0 H* Total Protein 6.0 L Albumin 2.2 L Globulin 3.8 Albumin/Globulin Ratio 0.6 POC Glucose 90 158 H 03/17/24 03/17/24 17:45 12:02 WBC RBC Hgb Hct MCV MCH MCHC RDW Plt Count MPV Neut % (Auto) Lymph % (Auto) [place] % (Auto) Eos % (Auto) Baso % (Auto) Neut # (Auto) Lymph # (Auto) [place] # (Auto) Eos # (Auto) Baso # (Auto) Abs Immat Gran (auto) Imm/Tot Granulo (auto) Sodium Potassium Chloride Carbon Dioxide Anion Gap BUN Creatinine Est GFR ( Amer) Est GFR (Non-Af Amer) BUN/Creatinine Ratio Glucose Calcium Total Bilirubin AST ALT Alkaline Phosphatase NT-Pro-B Natriuret Pep Total Protein Albumin Globulin Albumin/Globulin Ratio POC Glucose 198 H 241 H Discharge Plan Discharge Disposition: Xfer SNF Condition: Fair Discharge Medications: New levofloxacin 750 mg tablet 750 mg PO Q48H 6 Days Qty: 3 0RF Rx Instructions: 1 tab every 48 hours for a total of 3 more doses Continued polyethylene glycol 3350 [Miralax] 17 gram powder in packet 17 g PO DAILY PRN (Reason: constipation) magnesium oxide 400 mg magnesium tablet 800 mg PO TID Hold Instructions: dc date 02/10/24 diltiazem HCl 240 mg Capsule,Extended Release 24hr 240 mg PO QD 30 Days Qty: 30 0RF acetaminophen 500 mg capsule 1,000 mg PO Q6H PRN (Reason: fever or pain) ascorbic acid (vitamin C) [Acerola C] 500 mg tablet,chewable 500 mg PO BID atorvastatin 40 mg tablet 40 mg PO .QHS bumetanide 2 mg tablet 2 mg PO DAILY ergocalciferol (vitamin D2) 1,250 mcg (50,000 unit) capsule 50,000 unit PO QWEEK Rx Instructions: EVERY SATURDAY ferrous sulfate [FeroSul] 325 mg (65 mg iron) tablet 325 mg PO BID insulin glargine 100 unit/mL (3 mL) insulin pen 10 unit subcut BID metoprolol tartrate [Lopressor] 100 mg tablet 100 mg PO BID midodrine 5 mg tablet 5 mg PO TIDWM Rx Instructions: HOLD IF SBP > 130 do not give last dose of day after 6PM or within 4 hrs of bedtime multivitamin [Daily Multi-Vitamin] Tablet 1 tab PO DAILY insulin aspart U-100 [Novolog FlexPen U-100 Insulin] 100 unit/mL (3 mL) insulin pen 4 - 14 sliding scale dose subcut ACHS Rx Instructions: 100-149 0 UNITS 150-199 4 UNITS 200-249 7 UNITS 250-299 10 UNITS 300-349 12 UNITS 350-400 14 UNITS pantoprazole 20 mg tablet,delayed release (DR/EC) 20 mg PO DAILY potassium chloride [Klor-Con] 20 mEq packet 20 meq PO DAILY sertraline [Zoloft] 50 mg tablet 50 mg PO DAILY tamsulosin [Flomax] 0.4 mg capsule 0.4 mg PO DAILY zinc sulfate 50 mg zinc (220 mg) capsule 50 mg PO DAILY ondansetron HCl 4 mg tablet 4 mg PO Q6H PRN (Reason: nausea and vomiting) oxycodone 5 mg tablet 5 mg PO Q6H PRN (Reason: pain) 1 Days Qty: 4 0RF 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 Forms: Portal Instructions Follow Up Appointments: [facility] Cardiology: Closed today. Please call tomorrow and schedule an appointment. MRI at the [facility] [place]: March 26 at 12:30 Discharge location: to [facility]
[2024-03-18] MEDS: MULTIVITAMIN TABLET 1 TAB PO (09:08)
[2024-03-18] MEDS: SERTRALINE HCL 50 MG TABLET PO (09:08)
[2024-03-18] MEDS: POTASSIUM CHLORIDE 10 MEQ ER TABLET 20 MEQ PO (09:08)
[2024-03-18] MEDS: DILTIAZEM HCL 240 MG CAP.ER.24H PO (09:08)
[2024-03-18] MEDS: BUMETANIDE 1 MG/4 ML VIAL 2 MG IVP (09:08)
[2024-03-18] MEDS: ASCORBIC ACID 500 MG TABLET PO (09:08)
[2024-03-18] MEDS: MIDODRINE HCL 5 MG TABLET PO (09:08)
[2024-03-18] MEDS: ZINC GLUCONATE 50 MG TABLET PO (09:08)
[2024-03-18] MEDS: OMEPRAZOLE 20 MG CAPSULE.DR PO (09:08)
[2024-03-18] MEDS: METOPROLOL TARTRATE 100 MG TABLET PO (09:09)
[2024-03-18] MEDS: FERROUS SULFATE 325 MG TABLET PO (09:09)
[2024-03-18] MEDS: INSULIN DETEMIR 300 UNIT/3 ML INSULN.PEN 10 UNIT SQ (09:11)
--- NOTE | 2024-03-18 10:52 | REH.PTDLY ---
Physical Therapy Daily Note PT Daily Note/Assess Start: 03/17/24 11:52 Freq: Status: Active Protocol: Document 03/18/24 10:47 GENI (Rec: 03/18/24 10:49 GENI [id number]) Physical Therapy Daily Note/Assessment Time In 09:50 Time Out 10:11 Subjective Pt agreeable to therapy, reports she hopes to leave today as they are charging to keep her bed at facility while she is not there. Therapeutic Exercise Minutes (minutes) 5 Therapeutic Exercise Units 0 Therapeutic Exercise Treatment Instructed in seated AP 10x. Supine heel slides, hip abd slides 10x and SLR 5x eunice for strength. Pt is fatigued with these exs. Therapeutic Activity Minutes (minutes) 8 Therapeutic Activity Units 1 Bed Mobility Ability Maximum Assist,2 Person Assist Therapeutic Activity Comments Pt requires Max A x2 with bed mobility and transferring to sit at EOB. Pt requires Min- Mod A to maintain upright balance while sitting bedside. Cues throughout to help pt maintain neutral posture with muscle fatigue noted due to core and trunk weakness. pt sits bedside for 5 mins. Total Therapy Minutes 13 Total Physical Therapy Units 1 Daily Note Summary Pt fatigues easily with exs today, will require more therapy to regain strength upon DC back to facility.
--- NOTE | 2024-03-18 11:58 | SWNOTE1 ---
Pt is being discharged back to [facility]. SW set up [facility] and they will be here at 6:00. SW attempted [facility] but they do not have staffing. SW called [facility] and they wanted SW to fax over paperwork and they will call back with ETA. SW completed 2 forms and faxed forms and face sheet to [facility]. Med/[facility] floor received call and [facility] will be here in 20 mins. SW notified [facility]. SW already sent over dc med rec and dc summary to [facility]. Nurse is aware of time as well. SW took packet out to floor.
--- NOTE | 2024-03-18 12:00 | CM.NOTE ---
Rounds made with Dr. Gracia. Dr. Gracia discussed cardiology recommendations, labs and echo results. Plan is to wean O2 and probable discharge to [facility] later today if able to wean O2. Susan verbalizes understanding. Discussed that outpt MRI that was scheduled for today will need rescheduled and that will need followup cardiology appointment. Melvi the nurse was made aware of need to reschedule MRI and need for outpt cardiology appointment.
== END 2024-03-18 12:15 | DRG 291 ==
LOC: ER 23:37 → ICU 03-17 01:08 → MS 03-17 12:36
PROVIDERS: Nurse Practitioner Acute Care; Admitting Provider Family Medicine; Emergency Provider Student in an Organized Health Care Education/Training Program; Visit Provider Family Medicine
DX: I13.0 Hypertensive heart and chronic kidney disease with heart failure and stage 1 through stage 4 chronic kidney disease, or unspecified chronic kidney disease (principal); I50.43 Acute on chronic combined systolic (congestive) and diastolic (congestive) heart failure; L89.154 Pressure ulcer of sacral region, stage 4; J96.21 Acute and chronic respiratory failure with hypoxia; D62 Acute posthemorrhagic anemia; C20 Malignant neoplasm of rectum; M46.28 Osteomyelitis of vertebra, sacral and sacrococcygeal region; I48.20 Chronic atrial fibrillation, unspecified; N39.0 Urinary tract infection, site not specified; J44.9 Chronic obstructive pulmonary disease, unspecified; I25.10 Atherosclerotic heart disease of native coronary artery without angina pectoris; K21.9 Gastro-esophageal reflux disease without esophagitis; N18.31 Chronic kidney disease, stage 3a; E11.22 Type 2 diabetes mellitus with diabetic chronic kidney disease; E78.5 Hyperlipidemia, unspecified; F33.42 Major depressive disorder, recurrent, in full remission; Z93.3 Colostomy status; Z82.49 Family history of ischemic heart disease and other diseases of the circulatory system; Z99.81 Dependence on supplemental oxygen; Z83.3 Family history of diabetes mellitus; Z91.018 Allergy to other foods; Z87.891 Personal history of nicotine dependence; Z79.4 Long term (current) use of insulin; Z79.899 Other long term (current) drug therapy
CPT/HCPCS: 36415; 71045; 80048; 80053; 82800; 82947; 82948; 83605; 83880; 84484; 85025; 85610; 85730; 87040; 93005; 93306; 94640; 94761; 96365; 96366; 96372; 96375; 96376; 97161; 97165; 97530; 97535; 99285; J2405

== ENCOUNTER 2024-03-24 07:36 | Outpatient (RCR) | payer MEDICARE, OTHER, SELFPAY | END 2024-03-25 10:25 | disposition home or self-care (01) | LOC: INF 07:36 | PROVIDERS: Visit Provider Internal Medicine Hematology & Oncology | DX: C20 Malignant neoplasm of rectum (principal); D64.9 Anemia, unspecified; Z93.3 Colostomy status; F17.210 Nicotine dependence, cigarettes, uncomplicated; I48.0 Paroxysmal atrial fibrillation; I25.10 Atherosclerotic heart disease of native coronary artery without angina pectoris; N18.9 Chronic kidney disease, unspecified | CPT/HCPCS: G0463 ==

== ENCOUNTER 2024-03-26 12:05 | Outpatient (OUT) | payer MEDICARE, OTHER, SELFPAY ==
--- NOTE | 2024-03-26 | MR_ITS ---
[place] [id number] Patient Name: HARRIS CASTREJON MRN: [facility]:[id number] date: 1955 Sex: F Assigned Patient Location: MRI Current Patient Location: [facility] Accession/Order Number: [id number] Exam Date: 03/26/2024 13:00 Report Date: 03/31/2024 17:24 At the request of: KEZIA TOBIN Procedure: MR pelvis wo/w con EXAM: MR pelvis wo/w con CLINICAL INFORMATION: MALIGNANT NEOPLASM OF RECTUM, ANEMIA COMPARISON: 02/04/2024 TECHNIQUE: Pelvic MRI with and without contrast FINDINGS: Nondiagnostic study due to motion artifact and no small field of view images. Please repeat the study, including small field of view and diffusion restricted images. Electronically authenticated by: HILDA ESCOTO Date: 03/31/2024 17:24
== END 2024-03-26 12:06 | disposition home or self-care (01) ==
LOC: MRI 12:06
PROVIDERS: Visit Provider Internal Medicine Hematology & Oncology
DX: C20 Malignant neoplasm of rectum (principal); D64.9 Anemia, unspecified
CPT/HCPCS: 72197; A9575

== ENCOUNTER 2024-03-26 13:35 | Outpatient (RCR) | payer MEDICARE, OTHER, SELFPAY ==
[2024-03-26] MEDS: 0.9 % SODIUM CHLORIDE 1,000 ML 666.66700000000003 ML IV (14:30)
--- NOTE | 2024-03-26 14:45 | PC.NURSE ---
Patient is here after her MRI for fluids, she has a 22g IV in her left forearm. Pt is here with s/o, she denies any issues, she was provided with a snack and drink. She is tolerating fluids well without complaints.
== END 2024-03-27 10:48 | disposition home or self-care (01) ==
LOC: HEMC 13:35
PROVIDERS: Visit Provider Internal Medicine Hematology & Oncology
DX: C20 Malignant neoplasm of rectum (principal); D64.9 Anemia, unspecified
CPT/HCPCS: 72197; 96360; A9575

== ENCOUNTER 2024-04-03 05:05 | Emergency (ER) | payer MEDICARE, OTHER, SELFPAY ==
[2024-04-03] VITALS (47 sets, daily range): BP systolic 74–112; BP diastolic 50–76; PULSE 49–96; O2SAT 74–100
--- OUTSIDE RECORDS SUMMARY | 2024-04-03 05:24 | XMS_ITS | CCD ---
Author Organization [facility] Care Team Providers Care Resident Care Aide Name Role Phone Carol Akins PA-C Primary Care Provider CAROL AKINS Primary Care Unavailable JUAN LOPEZ Attending Unavailable BELA GUZMÁN Consulting Unavailable EMILIANO URIBE Admitting Unavailable ONLY), IP WOUND CARE SERVICES (INPATIENT Consult ing Unavailable DIVISION OF INFECTIOUS DISEASE, [facility] Consulting Unavailable CARDIOLOGY, [facility] Consulting [...] Referring Unavailable CAROL AKINS Primary Care Unavailable TOMY GUZMÁN Referring Unavailable CAROL AKINS Primary Care Unavailable MAGTOMY MOJICA Referring Unavailable CAROL AKINS Primary Care Unavailable RONNIE FITZGERALD Attending Unavailable RONNIE FITZGERALD Referring Unavailable CAROL AKINS Primary Care Unavailable CARIN MACHADO Attending Unavailable CAROL AKINS Primary Care Unavailable MAGTOMY MOJICA Referring Unavailable CAROL AKINS Primary Care Unavailable ANDREAS VARELA Referring Unavailable AKINS, CAROL A Primary Care Unavailable TOMY GUZMÁN Referring Unavailable AKINS, CAROL A Primary Care Unavailable KOMAL TONG Attending Unavailable KOMAL TONG Referring Unavailable AKINS, CAROL A Primary Care Unavailable AVASILCJOJO ARMENDARIZ Referring Dayanara vailable AKINS, CAROL A Primary Care Unavailable MADAURELIO STORY K Referring Unavailable AKINS, CAROL A Primary Care Unavailable GERMAINE BREWER Attending Unavailable SOL BRENNAN Referring Unavailable AKINS, CAROL A Primary Care Unavailable SOY TALAMANTES Attending Unavailable VINITA, SOY R Referring Unavailable AKINS, CAROL A Primary Care Unavailable BERNLEONILAORFF, SOY R Attending Unavailable BERNLOCF, SOY R Referring Unavailable AKINS, CAROL A Primary Care Unavailable YANNA CHAPA Attending Unavailable SAMMI, YANNA Fatima Referring Unavailable AKINS, CAROL A Primary Care Unavailable MITRA CROWELL Attending Unavailable MITRA CROWELL Referring Unavailable AKINS, CAROL A Primary Care Unavailable REINALDO BARROW Attending Unavailable YANNA CHAPA Attending Unavailable YANNA CHAPA Referring Unavailable AKINS, CAROL A Primary Care Unavailable AVASILCKALA, JOJO NGO Referring Dayanara vailable AKINS, CAROL A Primary [...] GUERRERO Attending Unavailable CELE GUERRERO Referring Unavailable AIKNS, CAROL A Primary Care Unavailable DEJUAN SIMENTAL [...] AKINS, CAROL A Primary Care Unavailable SANTANA CELIS Referring Unavailable AKINS, CAROL A Primary Care [...] Care Unavailable TELMA MITCHELL Attending Unavailable TELMA MITCHLEL NIMNEHEMIAH Referring Unavailable AKINS, CAROL A Primary Care [...] Cordero Admitting Unavailable CELE GUERRERO Attending Unavailable RONYEMILIANO Chin Referring Unavailable FRIDA, CAROL A Primary Care Unavailable BELA GUZMÁN Consulting Unavailable ONLY), IP WOUND CARE SERVICES (INPATIENT Consult ing Unavailable AL-SARITHA, LILIA T Consulting Unavailable (T[facility] ONLY), NEURO-CONSULTING Consulting Dayanara IMANI Landry Consulting Unavailable SONYA CORREA Consulting Unavailable MAGDI MATTHEW Consulting Unavailable SOY TALAMANTES Consulting Unavailable JIM FIERRO Consulting Unavailable COLLENE CAMPBELL Consulting Unavailable EDUARDO WOLFF Consulting Unavailable MENDOZA REILLY Consulting Unavailable MITRA CROWELL Consulting Unavailable SONYA RUELAS Consulting Unavailable DIVISION OF INFECTIOUS DISEASE, [facility] Consulting Unavailable CARDIOLOGY, [facility] Consulting Unavailable RONNIE FITZGERALD Consulting Unavailable SPECIALISTS, [facility] Consulting Unavailable MEDICINE, [facility] Consulting U ZACK Buchanan Consulting Unavailable RONY, MUHAMID M Referring Unavailable CAROL AKINS Primary Care Unavailable SALBADOR DUTTON Referring Unavailable CAROL AKINS Primary Care Unavailable SALBADOR DUTTON Referring Unavailable CAROL AKINS Akua Primary Care Unavailable BRANDON CARRILLO Referring Unavailable CAROL AKINS Primary Care Unavailable KELLI SANDHU Attending Unavailable WILLIAM AYERS Referring Unavailable Allergies Allergy Classification Reported Allergen(s) Allergy [...] failure docusate sodium 50 mg / sennosides, group home 8.6 mg oral tablet (1 source) Start: 09-25-2023 2 tablet, oral, Nightly, First dose on Sat09/25/23 at 2200, Hold for loose stool fat kumr-iwa-orx-kay v-fish oil, SMOFLIPID, 20 % emulsion infusion (5 sources) Start: 12-04-2023 fat vbgp-zlf-ams-oliv- fish oil, SMOFLIPID, 20 % emulsion infusion [...] or NPO with IV access, Starting on Sat12/22/23 at 1753, Push over 1-3 minutes STAT. [...] daily, First dose (after last modification) on Sat12/26/23 at 2100, Look-alike/sound-alike medication - verify indication for use. Start: 12-26-2023 End: 12-27-2023 5 mg, intravenous, Once, On Sat12/26/23 at 1215, For 1 dose, Administer right [...] a maximum of 2 mL, after use. (warehouse engineer: flush and change caps after each hemodialysis treatment) Start: 09-21-2023 2 mL, intraven ous, As needed, line care, Starting on 09/21/23 at 1111, Arterial Lumen. IVP equal to lumen volume, up to a maximum of 2 mL, after use. (warehouse engineer: flush and change caps after each hemodialysis [...] indication for use. 20 ml albumin human, group home 250 mg/ml injection (5 sources) Human Serum [...] End: 09-24-2023 25 g, intravenous, Once, On Tu09/24/23 at 1145, For 1 dose, Do not exceed 1 mL/minute in patients with normal plasma volume; 2 to 3 mL/minute in patients with hypoproteinemia For BUMINATE, administer using a 15 micron or smaller filter. A filter is NOT required for administration by other brands., Indication: Other, Indication: Hypoalbuminemia Start: 09-20-2023 End: 09-20-2023 25 g, intravenous, 2 times d aily, First dose on Sat09/20/23 at 1230, For 2 doses, Do not [...] d aily before meals, First dose on 09/30/23 at 1600 calcium chloride 0.0014 meq/ ml [...] First Start: 09-22-2023 End: 09-22-2023 Starting on 09/22/23 at 1710, For 1 dose, January, Mendoza: nanette waters Look-alike/sound-alike medication - verify indication for use. [...] End: 10-02-2023 250 mcg, intravenous, Once, On 10/02/23 at 2000, For 1 dose, Administer IVP [...] 12-22-2023 End: 12-22-2023 4,000 Units, intravenous, On , On Sat12/22/23 at 1830, For 1 dose, [...] oral tablet (12 sources) Start: 11-03-2023 Start: 02-04-2024 take 1 tablet by dax th in [...] hour 75 mL/hr, intravenous, Continuous, Starting on 12/22/23 at 1605, For 12 hours Start: 12-22-2023 [...] physician with the results of fluid challenge. [facility] Body Weight used due to BMI > [...] IVP equal to lumen volume after use. (warehouse engineer: flush and change caps after each hemodialysis treatment) Start: 09-20-2023 take 3 mL intravenou sly every twelve hours 3 mL, intravenous, Every 12 hours, First dose on Sat09/20/23 at 1015 Start: 09-20-2023 take 20 mL intraveno usly every hour as needed 20 mL/hr, intravenous, Continuous PRN, to maintain patency of lines, Starting on Sat09/20/23 at 1010 sodium zirconium cyclosilicate 79376 mg powder for oral suspension (1 source) [...] Admin ister over 30 Minutes, Once, On [place] 12/22/23 at 1230, For 1 dose, ADD-VANTAGE/MBP- Discard [...] such as Lactated Ringers., Indication: Sepsis Start: 12-22-2023 [Order 1 Start ] Name: dextrose 50 [...] 09-22-2023 End: 09-23-2023 0.01-0.2 mcg/kg/min 131 kg (2.4563-49.125 mL/hr, rounded to 2.5-49.1 mL/hr), intravenous, Continuous, [...] End: 12-22-2023 1 mg, intravenous, Once, On Sat12/22/23 at 1235, For 1 dose, Look-alike/sound-alike medication - verify indication for use. (1 source) Start: 12-22-2023 End: 12-22-2023 1,750 mg (rounded from 1,800 mg = 20 mg/kg 90 kg Order-specific weight), intravenous, at 268 mL/hr, Administer over 120 Minutes, Once, On Sat12/22/23 at 1230, For 1 dose, VESICANT (YELLOW), [...] Coronary arteriosclerosis; Translations: [Atherosclerotic heart disease of [place] coronary artery without angina pectoris] Onset: 02-22-2021 [...] her back to [facility] Onset: 12-22-2023 Unclassified (2 sources) Consult; Translations: [Consult] Onset: 03-04-2024 Urinary tract infections (12 sources) Urinary tract [...] Test Name Value Interpretation Reference Range Facility Consulton 03-04-2024 Consult [id number] Le bra A 1955 F Date Provider Department Center 03/04/2024 KELLI LIU [facility] SURG Second Fl No family history on file Level of Service:37547 AL OFFICE/OUTPATIENT NEW HIGH MDM 60 MINUTES Reason for Visit and Comments: Consult [484] - Harris is here for consult about rectal cancer Normal [facility] Orders Onlyon 03-02-2024 Orders Only [id number] Le bra A 1955 F Date Provider Department Center 03/02/2024 KELLI LIU [facility] SURG Second Fl No family history on file Normal [facility] Documentationon 02-12-2024 Documentation [id number] Le bra A 1955 F Date Provider Department Center 02/12/2024 SD TAN [facility] SURG Second Fl No family history on file Normal [facility] BASIC METABOLIC PANELon 12-30 Anion gap [Moles/Vol] 11 mmol/L Normal 7-20 [facility] Comment on above: Performed By: #### L [id number] #### [facility] (BEAKER) [address] [place] [address] Calcium [Mass/Vol] 7.5 mg/dL Low 8.6-10.3 [facility] Comment on above: Performed By: #### L [id number] #### [facility] ([facility]) [address] [place] [address] Chloride [Moles/Vol] 104 mmol/L Normal 98-107 [facility] Comment on above: Performed By: #### L [id number] #### [facility] [address] [place] [address] CO2 [Moles/Vol] 24 mmol/L Normal 21-31 [facility] Comment on above: Performed By: #### L [id number] #### [facility] [address] [place] [address] Creatinine [Mass/Vol] 1.33 mg/dL High 0.60-1.20 [facility] Comment on above: Performed By: #### L [id number] #### [facility] [address] [place] [address] GLOMERULAR FILTRATION RATE ML/MIN/1.73 SQ M.PREDICTED 44.1 mL/min/1.73m*2 Low >60.0 [facility] Comment on above: Result Comment: [facility]???s estimated glomerular filtration rate (eGFR) will no [...] group of individuals. Performed By: #### L [id number] #### [facility] [address] [place] [address] Glucose [Mass/Vol] 112 mg/dL High 70-100 [facility] Comment on above: Performed By: #### L [id number] #### [facility] ([facility]) [address] [place] [address] Potassium [Moles/Vol] 3.4 mmol/L Low 3.5-5.1 [facility] Comment on above: Performed By: #### L [id number] #### [facility] ([facility]) [address] [place] [address] Sodium [Moles/Vol] 136 mmol/L Normal 136-145 [facility] Comment on above: Performed By: #### L [id number] #### [facility] ([facility]) [address] [place] [address] Urea nitrogen [Mass/Vol] 20 mg/dL Normal 7-25 [facility] Comment on above: Performed By: #### L [id number] #### [facility] ([facility]) [address] [place] [address] UREA NITROGEN/CREATININ E (MASS RATIO) IN SER/PLAS 15.0 Normal [facility] Comment on above: Performed By: #### L [id number] #### [facility] ([facility]) [address] [place] [address] CBC WITH AUTO DIFFERENTIALon 01-20-2024 Basophils (Bld) [#/Vol] 0.05 10*3/uL Normal 0.00-0.20 [facility] Comment on above: Performed By: #### L [id number] #### [facility] ([facility]) [address] [place] [address] Basophils/100 WBC (Bld) 0.6 % Normal 0.0-1.0 [facility] Comment on above: Performed By: #### L [id number] #### [facility] ([facility]) [address] [place] [address] Eosinophils (Bld) [#/Vol] 0.17 10*3/uL Normal 0.00-0.50 [facility] Comment on above: Performed By: #### L [id number] #### [facility] (BEAKER) [address] [place] [address] Eosinophils/100 WBC (Bld) 2.2 % Normal 0.0-6.0 [facility] Comment on above: Performed By: #### L [id number] #### [facility] (BEAKER) [address] [place] [address] Erythrocyte distribution width (RBC) [Ratio] 15.9 % High 11.5-15.0 [facility] Comment on above: Performed By: #### L [id number] #### [facility] ([facility]) [address] [place] [address] ERYTHROCYTE MEAN CORPUSCULAR HEMOGLOBIN CONCENTRATION (G/DL) BY AUTOMATED 32.4 g/dL Normal 32.0-35.0 [facility] Comment on above: Performed By: #### L [id number] #### [facility] ([facility]) [address] [place] [address] Hematocrit (Bld) [Volume fraction] 25.9 % Low 36.0-48.0 [facility] Comment on above: Performed By: #### L [id number] #### [facility] ([facility]) [address] [place] [address] Hemoglobin (Bld) [Mass/Vol] 8.4 g/dL Low 12.0-15.0 [facility] Comment on above: Performed By: #### L [id number] #### [facility] (BEAKER) [address] [place] [address] Immature granulocytes (Bld) [#/Vol] 0.05 10*3/uL Normal 0.00-0.20 [facility] Comment on above: Performed By: #### L [id number] #### [facility] (BEAKER) [address] [place] [address] Immature granulocytes/100 WBC (Bld) 0.6 % Normal 0.0-1.0 [facility] Comment on above: Performed By: #### L [id number] #### [facility] (BEAKER) [address] [place] [address] Lymphocytes (Bld) [#/Vol] 1.74 10*3/uL Normal 1.20-4.00 [facility] Comment on above: Performed By: #### L [id number] #### [facility] (BEAKER) [address] [place] [address] Lymphocytes/100 WBC (Bld) 22.1 % Normal 20.0-45.0 [facility] Comment on above: Performed By: #### L [id number] #### [facility] [address] [place] [address] MCH (RBC) [Entitic mass] 29.9 pg Normal 27.0-33.0 [facility] Comment on above: Performed By: #### L [id number] #### [facility] (BEAKER) [address] [place] [address] MCV (RBC) [Entitic vol] 92.2 fL Normal 82.0-98.0 [facility] Comment on above: Performed By: #### L [id number] #### [facility] (BEAKER) [address] [place] [address] Monocytes (Bld) [#/Vol] 0.77 10*3/uL Normal 0.10-1.00 [facility] Comment on above: Performed By: #### L [id number] #### [facility] (BEAKER) [address] [place] [address] Monocytes/100 WBC (Bld) 9.8 % Normal 5.0-12.0 [facility] Comment on above: Performed By: #### L [id number] #### [facility] (BEAKER) [address] [place] [address] Neutrophils (Bld) [#/Vol] 5.08 10*3/uL Normal 1.60-7.60 [facility] Comment on above: Performed By: #### L [id number] #### [facility] (BEAKER) [address] [place] [address] Neutrophils/100 WBC (Bld) 64.7 % Normal 40.0-72.0 [facility] Comment on above: Performed By: #### L [id number] #### [facility] ([facility]) [address] [place] [address] NRBC (PER 100 WBCS) BY AUTOMATED COUNT 0.0 % Normal 0 [facility] Comment on above: Performed By: #### L [id number] #### [facility] ([facility]) [address] [place] [address] PLATELETS (10*3/UL) IN BLOOD AUTOMATED COUNT 129 10*3/uL Low 150-400 [facility] Comment on above: Performed By: #### L [id number] #### [facility] ([facility]) [address] [place] [place] [address] RBC (Bld) [#/Vol] 2.81 10*6/uL Low 3.80-5.00 [facility] Comment on above: Performed By: #### L [id number] #### [facility] ([facility]) [address] [place] [place] [address] WBC (Bld) [#/Vol] 7.86 10*3/uL Normal 4.00-10.60 [facility] Comment on above: Performed By: #### L [id number] #### [facility] ([facility]) [address] [place] [address] MAGNESIUMon 01-20-2024 Magnesium [Mass/Vol] 1.9 mg/dL Normal 1.9-2.7 [facility] Comment on above: Performed By: #### L [id number] #### [facility] ([facility]) [address] [place] [address] BASIC METABOLIC PANELon 12-30 Anion gap [Moles/Vol] 11 mmol/L Normal 7-20 [facility] Comment on above: Performed By: #### L [id number] #### [facility] ([facility]) [address] [place] [address] Calcium [Mass/Vol] 7.6 mg/dL Low 8.6-10.3 [facility] Comment on above: Performed By: #### L [id number] #### [facility] ([facility]) [address] [place] [address] Chloride [Moles/Vol] 106 mmol/L Normal 98-107 [facility] Comment on above: Performed By: #### L [id number] #### [facility] ([facility]) [address] [place] [address] CO2 [Moles/Vol] 23 mmol/L Normal 21-31 [facility] Comment on above: Performed By: #### L [id number] #### [facility] ([facility]) [address] [facility] [place] [address] Creatinine [Mass/Vol] 1.14 mg/dL Normal 0.60-1.20 [facility] Comment on above: Performed By: #### L [id number] #### [facility] ([facility]) [address] [place] [address] GLOMERULAR FILTRATION RATE ML/MIN/1.73 SQ M.PREDICTED 53.1 mL/min/1.73m*2 Low >60.0 [facility] Comment on above: Result Comment: [facility]???s estimated glomerular filtration rate (eGFR) will no [...] individuals. Performed By: #### L [id number] #### [facility] ([facility]) [address] [place] [address] Glucose [Mass/Vol] 95 mg/dL Normal 70-100 [facility] Comment on above: Performed By: #### L [id number] #### [facility] ([facility]) [address] [place] [address] Potassium [Moles/Vol] 3.2 mmol/L Low 3.5-5.1 [facility] Comment on above: Performed By: #### L [id number] #### [facility] ([facility]) [address] [place] [address] Sodium [Moles/Vol] 137 mmol/L Normal 136-145 [facility] Comment on above: Performed By: #### L [id number] #### [facility] ([facility]) [address] [place] [address] Urea nitrogen [Mass/Vol] 17 mg/dL Normal 7-25 [facility] Comment on above: Performed By: #### L [id number] #### [facility] ([facility]) [address] [place] [address] UREA NITROGEN/CREATININ E (MASS RATIO) IN SER/PLAS 14.9 Normal [facility] Comment on above: Performed By: #### L [id number] #### [facility] ([facility]) [address] [place] [address] CBC WITH AUTO DIFFERENTIALon 01-18-2024 Basophils (Bld) [#/Vol] 0.05 10*3/uL Normal 0.00-0.20 [facility] Comment on above: Performed By: #### L [id number] #### [facility] ([facility]) [address] [place] [address] Basophils/100 WBC (Bld) 0.6 % Normal 0.0-1.0 [facility] Comment on above: Performed By: #### L [id number] #### [facility] ([facility]) [address] [place] [address] Eosinophils (Bld) [#/Vol] 0.23 10*3/uL Normal 0.00-0.50 [facility] Comment on above: Performed By: #### L [id number] #### [facility] ([facility]) [address] [place] [address] Eosinophils/100 WBC (Bld) 2.8 % Normal 0.0-6.0 [facility] Comment on above: Performed By: #### L [id number] #### [facility] ([facility]) [address] [place] [address] Erythrocyte distribution width (RBC) [Ratio] 15.9 % High 11.5-15.0 [facility] Comment on above: Performed By: #### L [id number] #### [facility] ([facility]) [address] [place] [address] ERYTHROCYTE MEAN CORPUSCULAR HEMOGLOBIN CONCENTRATION (G/DL) BY AUTOMATED 32.2 g/dL Normal 32.0-35.0 [facility] Comment on above: Performed By: #### L [id number] #### [facility] ([facility]) [address] [place] [address] Hematocrit (Bld) [Volume fraction] 26.7 % Low 36.0-48.0 [facility] Comment on above: Performed By: #### L [id number] #### [facility] ([facility]) [address] [place] [address] Hemoglobin (Bld) [Mass/Vol] 8.6 g/dL Low 12.0-15.0 [facility] Comment on above: Performed By: #### L [id number] #### [facility] ([facility]) [address] [place] [address] Immature granulocytes (Bld) [#/Vol] 0.03 10*3/uL Normal 0.00-0.20 [facility] Comment on above: Performed By: #### L [id number] #### [facility] [address] [place] [address] Immature granulocytes/100 WBC (Bld) 0.4 % Normal 0.0-1.0 [facility] Comment on above: Performed By: #### L [id number] #### [facility] (BEAKER) [address] [place] [address] Lymphocytes (Bld) [#/Vol] 1.88 10*3/uL Normal 1.20-4.00 [facility] Comment on above: Performed By: #### L [id number] #### [facility] ([facility]) [address] [place] [address] Lymphocytes/100 WBC (Bld) 23.2 % Normal 20.0-45.0 [facility] Comment on above: Performed By: #### L [id number] #### [facility] ([facility]) [address] [place] [address] MCH (RBC) [Entitic mass] 29.5 pg Normal 27.0-33.0 [facility] Comment on above: Performed By: #### L [id number] #### [facility] ([facility]) [address] [place] [address] MCV (RBC) [Entitic vol] 91.4 fL Normal 82.0-98.0 [facility] Comment on above: Performed By: #### L [id number] #### [facility] ([facility]) [address] [place] [address] Monocytes (Bld) [#/Vol] 0.86 10*3/uL Normal 0.10-1.00 [facility] Comment on above: Performed By: #### L [id number] #### [facility] ([facility]) [address] [place] [address] Monocytes/100 WBC (Bld) 10.6 % Normal 5.0-12.0 [facility] Comment on above: Performed By: #### L [id number] #### [facility] ([facility]) [address] [place] [address] Neutrophils (Bld) [#/Vol] 5.07 10*3/uL Normal 1.60-7.60 [facility] Comment on above: Performed By: #### L [id number] #### [facility] [address] [place] [address] Neutrophils/100 WBC (Bld) 62.4 % Normal 40.0-72.0 [facility] Comment on above: Performed By: #### L [id number] #### [facility] ([facility]) [address] [place] [address] NRBC (PER 100 WBCS) BY AUTOMATED COUNT 0.0 % Normal 0 [facility] Comment on above: Performed By: #### L [id number] #### [facility] ([facility]) [address] [place] [address] PLATELETS (10*3/UL) IN BLOOD AUTOMATED COUNT 133 10*3/uL Low 150-400 [facility] Comment on above: Performed By: #### L [id number] #### [facility] ([facility]) [address] [place] [address] RBC (Bld) [#/Vol] 2.92 10*6/uL Low 3.80-5.00 [facility] Comment on above: Performed By: #### L [id number] #### [facility] ([facility]) [address] [place] [address] WBC (Bld) [#/Vol] 8.12 10*3/uL Normal 4.00-10.60 [facility] Comment on above: Performed By: #### L [id number] #### [facility] ([facility]) [address] [place] [address] MAGNESIUMon 01-17-2023 Magnesium [Mass/Vol] 1.7 mg/dL Low 1.9-2.7 [facility] Comment on above: Performed By: #### L [id number] #### [facility] ([facility]) [address] [place] [address] BASIC METABOLIC PANELon 12-29 Anion gap [Moles/Vol] 13 mmol/L Normal 7-20 [facility] Comment on above: Performed By: #### L [id number] #### [facility] ([facility]) [address] [place] [address] Calcium [Mass/Vol] 7.3 mg/dL Low 8.6-10.3 [facility] Comment on above: Performed By: #### L [id number] #### [facility] [address] [place] [address] Chloride [Moles/Vol] 105 mmol/L Normal 98-107 [facility] Comment on above: Performed By: #### L [id number] #### [facility] ([facility]) [address] [place] [address] CO2 [Moles/Vol] 24 mmol/L Normal 21-31 [facility] Comment on above: Performed By: #### L [id number] #### [facility] ([facility]) [address] [place] [address] Creatinine [Mass/Vol] 1.11 mg/dL Normal 0.60-1.20 [facility] Comment on above: Performed By: #### L [id number] #### [facility] ([facility]) [address] [place] [address] GLOMERULAR FILTRATION RATE ML/MIN/1.73 SQ M.PREDICTED 54.8 mL/min/1.73m*2 Low >60.0 [facility] Comment on above: Result Comment: [facility]???s estimated glomerular filtration rate (eGFR) will no [...] individuals. Performed By: #### L [id number] #### [facility] ([facility]) [address] [place] [address] Glucose [Mass/Vol] 110 mg/dL High 70-100 [facility] Comment on above: Performed By: #### L [id number] #### [facility] ([facility]) [address] [place] [address] Potassium [Moles/Vol] 3.5 mmol/L Normal 3.5-5.1 [facility] Comment on above: Performed By: #### L [id number] #### [facility] ([facility]) [address] [place] [address] Sodium [Moles/Vol] 138 mmol/L Normal 136-145 [facility] Comment on above: Performed By: #### L [id number] #### [facility] ([facility]) [address] [place] [address] Urea nitrogen [Mass/Vol] 14 mg/dL Normal 7-25 [facility] Comment on above: Performed By: #### L [id number] #### [facility] ([facility]) [address] [place] [address] UREA NITROGEN/CREATININ E (MASS RATIO) IN SER/PLAS 12.6 Normal [facility] Comment on above: Performed By: #### L [id number] #### [facility] ([facility]) [address] [place] [address] CBC WITH AUTO DIFFERENTIALon 01-15-2024 Basophils (Bld) [#/Vol] 0.05 10*3/uL Normal 0.00-0.20 [facility] Comment on above: Performed By: #### L [id number] #### [facility] ([facility]) [address] [place] [address] Basophils/100 WBC (Bld) 0.7 % Normal 0.0-1.0 [facility] Comment on above: Performed By: #### L [id number] #### [facility] ([facility]) [address] [place] [address] Eosinophils (Bld) [#/Vol] 0.18 10*3/uL Normal 0.00-0.50 [facility] Comment on above: Performed By: #### L [id number] #### [facility] ([facility]) [address] [place] [address] Eosinophils/100 WBC (Bld) 2.4 % Normal 0.0-6.0 [facility] Comment on above: Performed By: #### L [id number] #### [facility] ([facility]) [address] [place] [address] Erythrocyte distribution width (RBC) [Ratio] 16.3 % High 11.5-15.0 [facility] Comment on above: Performed By: #### L [id number] #### [facility] ([facility]) [address] [facility] [place] [address] ERYTHROCYTE MEAN CORPUSCULAR HEMOGLOBIN CONCENTRATION (G/DL) BY AUTOMATED 33.1 g/dL Normal 32.0-35.0 [facility] Comment on above: Performed By: #### L [id number] #### [facility] ([facility]) [address] [place] [address] Hematocrit (Bld) [Volume fraction] 24.5 % Low 36.0-48.0 [facility] Comment on above: Performed By: #### L [id number] #### [facility] ([facility]) [address] [place] [address] Hemoglobin (Bld) [Mass/Vol] 8.1 g/dL Low 12.0-15.0 [facility] Comment on above: Performed By: #### L [id number] #### [facility] ([facility]) [address] [place] [address] Immature granulocytes (Bld) [#/Vol] 0.03 10*3/uL Normal 0.00-0.20 [facility] Comment on above: Performed By: #### L [id number] #### [facility] ([facility]) [address] [facility] [place] [address] Immature granulocytes/100 WBC (Bld) 0.4 % Normal 0.0-1.0 [facility] Comment on above: Performed By: #### L [id number] #### [facility] ([facility]) [address] [facility] [place] [address] Lymphocytes (Bld) [#/Vol] 1.89 10*3/uL Normal 1.20-4.00 [facility] Comment on above: Performed By: #### L [id number] #### [facility] ([facility]) [address] [place] [address] Lymphocytes/100 WBC (Bld) 25.2 % Normal 20.0-45.0 [facility] Comment on above: Performed By: #### L [id number] #### [facility] [address] [place] [address] MCH (RBC) [Entitic mass] 30.1 pg Normal 27.0-33.0 [facility] Comment on above: Performed By: #### L [id number] #### [facility] [address] [place] [address] MCV (RBC) [Entitic vol] 91.1 fL Normal 82.0-98.0 [facility] Comment on above: Performed By: #### L [id number] #### [facility] [address] [place] [address] Monocytes (Bld) [#/Vol] 0.70 10*3/uL Normal 0.10-1.00 [facility] Comment on above: Performed By: #### L [id number] #### [facility] ([facility]) [address] [place] [address] Monocytes/100 WBC (Bld) 9.3 % Normal 5.0-12.0 [facility] Comment on above: Performed By: #### L [id number] #### [facility] ([facility]) [address] [place] [address] Neutrophils (Bld) [#/Vol] 4.65 10*3/uL Normal 1.60-7.60 [facility] Comment on above: Performed By: #### L [id number] #### [facility] ([facility]) [address] [place] [address] Neutrophils/100 WBC (Bld) 62.0 % Normal 40.0-72.0 [facility] Comment on above: Performed By: #### L [id number] #### [facility] ([facility]) [address] [place] [address] NRBC (PER 100 WBCS) BY AUTOMATED COUNT 0.0 % Normal 0 [facility] Comment on above: Performed By: #### L [id number] #### [facility] ([facility]) [address] [place] [address] PLATELETS (10*3/UL) IN BLOOD AUTOMATED COUNT 129 10*3/uL Low 150-400 [facility] Comment on above: Performed By: #### L [id number] #### [facility] ([facility]) [address] [place] [address] RBC (Bld) [#/Vol] 2.69 10*6/uL Low 3.80-5.00 [facility] Comment on above: Performed By: #### L [id number] #### [facility] ([facility]) [address] [place] [address] WBC (Bld) [#/Vol] 7.50 10*3/uL Normal 4.00-10.60 [facility] Comment on above: Performed By: #### L [id number] #### [facility] ([facility]) [address] [place] [address] MAGNESIUMon 01-15-2024 Magnesium [Mass/Vol] 1.8 mg/dL Low 1.9-2.7 [facility] Comment on above: Performed By: #### L [id number] #### [facility] ([facility]) [address] [place] [address] BASIC METABOLIC PANELon 12-29 Anion gap [Moles/Vol] 13 mmol/L Normal 7-20 [facility] Comment on above: Performed By: #### L [id number] #### [facility] ([facility]) [address] [place] [address] Calcium [Mass/Vol] 7.1 mg/dL Low 8.6-10.3 [facility] Comment on above: Performed By: #### L [id number] #### [facility] ([facility]) [address] [place] [address] Chloride [Moles/Vol] 105 mmol/L Normal 98-107 [facility] Comment on above: Performed By: #### L [id number] #### [facility] ([facility]) [address] [place] [address] CO2 [Moles/Vol] 23 mmol/L Normal 21-31 [facility] Comment on above: Performed By: #### L [id number] #### [facility] ([facility]) [address] [place] [address] Creatinine [Mass/Vol] 1.04 mg/dL Normal 0.60-1.20 [facility] Comment on above: Performed By: #### L [id number] #### [facility] ([facility]) [address] [place] [address] GLOMERULAR FILTRATION RATE ML/MIN/1.73 SQ M.PREDICTED 59.3 mL/min/1.73m*2 Low >60.0 [facility] Comment on above: Result Comment: [facility]???s estimated glomerular filtration rate (eGFR) will no [...] individuals. Performed By: #### L [id number] #### [facility] ([facility]) [address] [place] [address] Glucose [Mass/Vol] 75 mg/dL Normal 70-100 [facility] Comment on above: Performed By: #### L [id number] #### [facility] ([facility]) [address] [place] [address] Potassium [Moles/Vol] 3.0 mmol/L Low 3.5-5.1 [facility] Comment on above: Performed By: #### L [id number] #### [facility] ([facility]) [address] [place] [address] Sodium [Moles/Vol] 138 mmol/L Normal 136-145 [facility] Comment on above: Performed By: #### L [id number] #### [facility] [address] [place] [address] Urea nitrogen [Mass/Vol] 14 mg/dL Normal 7-25 [facility] Comment on above: Performed By: #### L [id number] #### [facility] ([facility]) [address] [place] [address] UREA NITROGEN/CREATININ E (MASS RATIO) IN SER/PLAS 13.5 Normal [facility] Comment on above: Performed By: #### L [id number] #### [facility] ([facility]) [address] [place] [address] CBCon 01-12-2024 Erythrocyte distribution width (RBC) [Ratio] 15.9 % High 11.5-15.0 [facility] Comment on above: Performed By: #### L [id number] #### [facility] ([facility]) [address] [place] [address] ERYTHROCYTE MEAN CORPUSCULAR HEMOGLOBIN CONCENTRATION (G/DL) BY AUTOMATED 32.4 g/dL Normal 32.0-35.0 [facility] Comment on above: Performed By: #### L [id number] #### [facility] [address] [place] [address] Hematocrit (Bld) [Volume fraction] 27.2 % Low 36.0-48.0 [facility] Comment on above: Performed By: #### L [id number] #### [facility] [address] [place] [address] Hemoglobin (Bld) [Mass/Vol] 8.8 g/dL Low 12.0-15.0 [facility] Comment on above: Performed By: #### L [id number] #### [facility] [address] [place] [address] MCH (RBC) [Entitic mass] 29.2 pg Normal 27.0-33.0 [facility] Comment on above: Performed By: #### L [id number] #### [facility] ([facility]) [address] [place] [address] MCV (RBC) [Entitic vol] 90.4 fL Normal 82.0-98.0 [facility] Comment on above: Performed By: #### L [id number] #### [facility] ([facility]) [address] [place] [address] PLATELETS (10*3/UL) IN BLOOD AUTOMATED COUNT 126 10*3/uL Low 150-400 [facility] Comment on above: Performed By: #### L [id number] #### [facility] ([facility]) [address] [place] [address] RBC (Bld) [#/Vol] 3.01 10*6/uL Low 3.80-5.00 [facility] Comment on above: Performed By: #### L [id number] #### [facility] ([facility]) [address] [place] [address] WBC (Bld) [#/Vol] 9.11 10*3/uL Normal 4.00-10.60 [facility] Comment on above: Performed By: #### L [id number] #### [facility] ([facility]) [address] [place] [address] MAGNESIUMon 01-12-2024 Magnesium [Mass/Vol] 1.3 mg/dL Low 1.9-2.7 [facility] Comment on above: Performed By: #### L [id number] #### [facility] ([facility]) [address] [place] [address] BASIC METABOLIC PANELon Anion gap [Moles/Vol] 12 mmol/L Normal 7-20 [facility] Comment on above: Performed By: #### L [id number] #### [facility] ([facility]) [address] [place] [address] Calcium [Mass/Vol] 6.9 mg/dL Low 8.6-10.3 [facility] Comment on above: Performed By: #### L [id number] #### [facility] [address] [place] [address] Chloride [Moles/Vol] 104 mmol/L Normal 98-107 [facility] Comment on above: Performed By: #### L [id number] #### [facility] ([facility]) [address] [place] [address] CO2 [Moles/Vol] 24 mmol/L Normal 21-31 [facility] Comment on above: Performed By: #### L [id number] #### [facility] ([facility]) [address] [place] [address] Creatinine [Mass/Vol] 1.01 mg/dL Normal 0.60-1.20 [facility] Comment on above: Performed By: #### L [id number] #### [facility] ([facility]) [address] [place] [address] GLOMERULAR FILTRATION RATE ML/MIN/1.73 SQ M.PREDICTED 61.4 mL/min/1.73m*2 Normal >60.0 [facility] Comment on above: Result Comment: [facility]???s estimated glomerular filtration rate (eGFR) will no [...] individuals. Performed By: #### L [id number] #### [facility] [address] [place] [address] Glucose [Mass/Vol] 129 mg/dL High 70-100 [facility] Comment on above: Performed By: #### L [id number] #### [facility] ([facility]) [address] [place] [address] Potassium [Moles/Vol] 3.6 mmol/L Normal 3.5-5.1 [facility] Comment on above: Performed By: #### L [id number] #### [facility] ([facility]) [address] [place] [address] Sodium [Moles/Vol] 136 mmol/L Normal 136-145 [facility] Comment on above: Performed By: #### L [id number] #### [facility] [address] [place] [address] Urea nitrogen [Mass/Vol] 13 mg/dL Normal 7-25 [facility] Comment on above: Performed By: #### L [id number] #### [facility] ([facility]) [address] [place] [address] UREA NITROGEN/CREATININ E (MASS RATIO) IN SER/PLAS 12.9 Normal [facility] Comment on above: Performed By: #### L [id number] #### [facility] ([facility]) [address] [place] [address] CBCon 01-06-2024 Erythrocyte distribution width (RBC) [Ratio] 17.0 % High 11.5-15.0 [facility] Comment on above: Performed By: #### L [id number] #### [facility] [address] [place] [address] ERYTHROCYTE MEAN CORPUSCULAR HEMOGLOBIN CONCENTRATION (G/DL) BY AUTOMATED 32.4 g/dL Normal 32.0-35.0 [facility] Comment on above: Performed By: #### L [id number] #### [facility] [address] [place] [address] Hematocrit (Bld) [Volume fraction] 25.3 % Low 36.0-48.0 [facility] Comment on above: Performed By: #### L [id number] #### [facility] ([facility]) [address] [place] [address] Hemoglobin (Bld) [Mass/Vol] 8.2 g/dL Low 12.0-15.0 [facility] Comment on above: Performed By: #### L [id number] #### [facility] ([facility]) [address] [place] [address] MCH (RBC) [Entitic mass] 30.3 pg Normal 27.0-33.0 [facility] Comment on above: Performed By: #### L [id number] #### [facility] ([facility]) [address] [place] [address] MCV (RBC) [Entitic vol] 93.4 fL Normal 82.0-98.0 [facility] Comment on above: Performed By: #### L [id number] #### [facility] ([facility]) [address] [place] [address] PLATELETS (10*3/UL) IN BLOOD AUTOMATED COUNT 159 10*3/uL Normal 150-400 [facility] Comment on above: Performed By: #### L [id number] #### [facility] ([facility]) [address] [place] [address] RBC (Bld) [#/Vol] 2.71 10*6/uL Low 3.80-5.00 [facility] Comment on above: Performed By: #### L [id number] #### [facility] ([facility]) [address] [place] [address] WBC (Bld) [#/Vol] 8.46 10*3/uL Normal 4.00-10.60 [facility] Comment on above: Performed By: #### L [id number] #### [facility] ([facility]) [address] [place] [address] MAGNESIUMon 01-06-2024 Magnesium [Mass/Vol] 1.5 mg/dL Low 1.9-2.7 [facility] Comment on above: Performed By: #### L [id number] #### [facility] ([facility]) [address] [place] [address] BASIC METABOLIC PANELon 04-0 Anion gap [Moles/Vol] 12 mmol/L Normal 7-20 [facility] Comment on above: Performed By: #### L [id number] #### [facility] ([facility]) [address] [place] [address] Calcium [Mass/Vol] 6.9 mg/dL Low 8.6-10.3 [facility] Comment on above: Performed By: #### L [id number] #### [facility] ([facility]) [address] [place] [address] Chloride [Moles/Vol] 105 mmol/L Normal 98-107 [facility] Comment on above: Performed By: #### L [id number] #### [facility] ([facility]) [address] [place] [address] CO2 [Moles/Vol] 21 mmol/L Normal 21-31 [facility] Comment on above: Performed By: #### L [id number] #### [facility] [address] [place] [address] Creatinine [Mass/Vol] 0.99 mg/dL Normal 0.60-1.20 [facility] Comment on above: Performed By: #### L [id number] #### [facility] [address] [place] [address] GLOMERULAR FILTRATION RATE ML/MIN/1.73 SQ M.PREDICTED 62.9 mL/min/1.73m*2 Normal >60.0 [facility] Comment on above: Result Comment: [facility]???s estimated glomerular filtration rate (eGFR) will no [...] individuals. Performed By: #### L [id number] #### [facility] ([facility]) [address] [place] [address] Glucose [Mass/Vol] 155 mg/dL High 70-100 [facility] Comment on above: Performed By: #### L [id number] #### [facility] ([facility]) [address] [place] [address] Potassium [Moles/Vol] 3.1 mmol/L Low 3.5-5.1 [facility] Comment on above: Performed By: #### L [id number] #### [facility] ([facility]) [address] [place] [address] Sodium [Moles/Vol] 135 mmol/L Low 136-145 [facility] Comment on above: Performed By: #### L [id number] #### [facility] ([facility]) [address] [place] [address] Urea nitrogen [Mass/Vol] 10 mg/dL Normal 7-25 [facility] Comment on above: Performed By: #### L [id number] #### [facility] ([facility]) [address] [place] [address] UREA NITROGEN/CREATININ E (MASS RATIO) IN SER/PLAS 10.1 Normal [facility] Comment on above: Performed By: #### L [id number] #### [facility] ([facility]) [address] [place] [address] CBCon 01-03-2024 Erythrocyte distribution width (RBC) [Ratio] 17.6 % High 11.5-15.0 [facility] Comment on above: Performed By: #### L [id number] #### [facility] ([facility]) [address] [place] [address] ERYTHROCYTE MEAN CORPUSCULAR HEMOGLOBIN CONCENTRATION (G/DL) BY AUTOMATED 32.3 g/dL Normal 32.0-35.0 [facility] Comment on above: Performed By: #### L [id number] #### [facility] [address] [place] [address] Hematocrit (Bld) [Volume fraction] 26.9 % Low 36.0-48.0 [facility] Comment on above: Performed By: #### L [id number] #### [facility] [address] [place] [address] Hemoglobin (Bld) [Mass/Vol] 8.7 g/dL Low 12.0-15.0 [facility] Comment on above: Performed By: #### L [id number] #### [facility] ([facility]) [address] [place] [address] MCH (RBC) [Entitic mass] 29.4 pg Normal 27.0-33.0 [facility] Comment on above: Performed By: #### L [id number] #### [facility] ([facility]) [address] [place] [address] MCV (RBC) [Entitic vol] 90.9 fL Normal 82.0-98.0 [facility] Comment on above: Performed By: #### L [id number] #### [facility] ([facility]) [address] [place] [address] PLATELETS (10*3/UL) IN BLOOD AUTOMATED COUNT 224 10*3/uL Normal 150-400 [facility] Comment on above: Performed By: #### L [id number] #### [facility] ([facility]) [address] [place] [address] RBC (Bld) [#/Vol] 2.96 10*6/uL Low 3.80-5.00 [facility] Comment on above: Performed By: #### L [id number] #### [facility] ([facility]) [address] [place] [address] WBC (Bld) [#/Vol] 12.74 10*3/uL High 4.00-10.60 [facility] Comment on above: Performed By: #### L [id number] #### [facility] ([facility]) [address] [place] [address] MAGNESIUMon 01-03-2024 Magnesium [Mass/Vol] 1.5 mg/dL Low 1.9-2.7 [facility] Comment on above: Performed By: #### L [id number] #### [facility] ([facility]) [address] [place] [address] BASIC METABOLIC PANELon 04- Anion gap [Moles/Vol] 12 mmol/L Normal 7-20 [facility] Comment on above: Performed By: #### L [id number] #### [facility] ([facility]) [address] [place] [address] Calcium [Mass/Vol] 6.8 mg/dL Low 8.6-10.3 [facility] Comment on above: Performed By: #### L [id number] #### [facility] [address] [place] [address] Chloride [Moles/Vol] 107 mmol/L Normal 98-107 [facility] Comment on above: Performed By: #### L [id number] #### [facility] [address] [place] [address] CO2 [Moles/Vol] 20 mmol/L Low 21-31 [facility] Comment on above: Performed By: #### L [id number] #### [facility] ([facility]) [address] [place] [address] Creatinine [Mass/Vol] 1.05 mg/dL Normal 0.60-1.20 [facility] Comment on above: Performed By: #### L [id number] #### [facility] ([facility]) [address] [place] [address] GLOMERULAR FILTRATION RATE ML/MIN/1.73 SQ M.PREDICTED 58.6 mL/min/1.73m*2 Low >60.0 [facility] Comment on above: Result Comment: [facility]???s estimated glomerular filtration rate (eGFR) will no [...] individuals. Performed By: #### L [id number] #### [facility] ([facility]) [address] [place] [address] Glucose [Mass/Vol] 82 mg/dL Normal 70-100 [facility] Comment on above: Performed By: #### L [id number] #### [facility] ([facility]) [address] [place] [address] Potassium [Moles/Vol] 3.9 mmol/L Normal 3.5-5.1 [facility] Comment on above: Performed By: #### L [id number] #### [facility] ([facility]) [address] [place] [address] Sodium [Moles/Vol] 135 mmol/L Low 136-145 [facility] Comment on above: Performed By: #### L [id number] #### [facility] ([facility]) [address] [place] [address] Urea nitrogen [Mass/Vol] 11 mg/dL Normal 7-25 [facility] Comment on above: Performed By: #### L [id number] #### [facility] ([facility]) [address] [place] [address] UREA NITROGEN/CREATININ E (MASS RATIO) IN SER/PLAS 10.5 Normal [facility] Comment on above: Performed By: #### L [id number] #### [facility] ([facility]) [address] [place] [address] CBC WITH AUTO DIFFERENTIALon 12-31-2023 Basophils (Bld) [#/Vol] 0.08 10*3/uL Normal 0.00-0.20 [facility] Comment on above: Performed By: #### L [id number] #### [facility] ([facility]) [address] [place] [address] Basophils/100 WBC (Bld) 0.7 % Normal 0.0-1.0 [facility] Comment on above: Performed By: #### L [id number] #### [facility] ([facility]) [address] [place] [address] Eosinophils (Bld) [#/Vol] 0.17 10*3/uL Normal 0.00-0.50 [facility] Comment on above: Performed By: #### L [id number] #### [facility] ([facility]) [address] [place] [address] Eosinophils/100 WBC (Bld) 1.4 % Normal 0.0-6.0 [facility] Comment on above: Performed By: #### L [id number] #### [facility] ([facility]) [address] [place] [address] Erythrocyte distribution width (RBC) [Ratio] 18.6 % High 11.5-15.0 [facility] Comment on above: Performed By: #### L [id number] #### [facility] ([facility]) [address] [place] [address] ERYTHROCYTE MEAN CORPUSCULAR HEMOGLOBIN CONCENTRATION (G/DL) BY AUTOMATED 32.6 g/dL Normal 32.0-35.0 [facility] Comment on above: Performed By: #### L [id number] #### [facility] [address] [place] [address] Hematocrit (Bld) [Volume fraction] 26.7 % Low 36.0-48.0 [facility] Comment on above: Performed By: #### L [id number] #### [facility] [address] [place] [address] Hemoglobin (Bld) [Mass/Vol] 8.7 g/dL Low 12.0-15.0 [facility] Comment on above: Performed By: #### L [id number] #### [facility] [address] [place] [address] Immature granulocytes (Bld) [#/Vol] 0.08 10*3/uL Normal 0.00-0.20 [facility] Comment on above: Performed By: #### L [id number] #### [facility] ([facility]) [address] [place] [address] Immature granulocytes/100 WBC (Bld) 0.7 % Normal 0.0-1.0 [facility] Comment on above: Performed By: #### L [id number] #### [facility] ([facility]) [address] [place] [address] Lymphocytes (Bld) [#/Vol] 1.92 10*3/uL Normal 1.20-4.00 [facility] Comment on above: Performed By: #### L [id number] #### [facility] ([facility]) [address] [place] [address] Lymphocytes/100 WBC (Bld) 15.8 % Low 20.0-45.0 [facility] Comment on above: Performed By: #### L [id number] #### [facility] ([facility]) [address] [place] [address] MCH (RBC) [Entitic mass] 30.6 pg Normal 27.0-33.0 [facility] Comment on above: Performed By: #### L [id number] #### [facility] ([facility]) [address] [place] [address] MCV (RBC) [Entitic vol] 94.0 fL Normal 82.0-98.0 [facility] Comment on above: Performed By: #### L [id number] #### [facility] ([facility]) [address] [place] [address] Monocytes (Bld) [#/Vol] 1.01 10*3/uL High 0.10-1.00 [facility] Comment on above: Performed By: #### L [id number] #### [facility] ([facility]) [address] [place] [address] Monocytes/100 WBC (Bld) 8.3 % Normal 5.0-12.0 [facility] Comment on above: Performed By: #### L [id number] #### [facility] ([facility]) [address] [place] [address] Neutrophils (Bld) [#/Vol] 8.93 10*3/uL High 1.60-7.60 [facility] Comment on above: Performed By: #### L [id number] #### [facility] ([facility]) [address] [place] [address] Neutrophils/100 WBC (Bld) 73.1 % High 40.0-72.0 [facility] Comment on above: Performed By: #### L [id number] #### [facility] ([facility]) [address] [place] [address] NRBC (PER 100 WBCS) BY AUTOMATED COUNT 0.0 % Normal 0 [facility] Comment on above: Performed By: #### L [id number] #### [facility] ([facility]) [address] [place] [address] PLATELETS (10*3/UL) IN BLOOD AUTOMATED COUNT 239 10*3/uL Normal 150-400 [facility] Comment on above: Performed By: #### L [id number] #### [facility] [address] [place] [address] RBC (Bld) [#/Vol] 2.84 10*6/uL Low 3.80-5.00 [facility] Comment on above: Performed By: #### L [id number] #### [facility] ([facility]) [address] [place] [address] WBC (Bld) [#/Vol] 12.19 10*3/uL High 4.00-10.60 [facility] Comment on above: Performed By: #### L [id number] #### [facility] [address] [place] [address] MAGNESIUMon 12-31-2023 Magnesium [Mass/Vol] 1.7 mg/dL Low 1.9-2.7 [facility] Comment on above: Performed By: #### L [id number] #### [facility] ([facility]) [address] [place] [address] PHOSPHORUSon 12-31-2023 Magnesium [Mass/Vol] 2.9 mg/dL Normal 2.5-5.0 [facility] Comment on above: Performed By: #### L [id number] #### [facility] ([facility]) [address] [place] [address] CBC WITH AUTO DIFFERENTIALon 12-29-2023 Basophils (Bld) [#/Vol] 0.07 10*3/uL Normal 0.00-0.20 [facility] Comment on above: Performed By: #### L [id number] #### [facility] ([facility]) [address] [address] Basophils/100 WBC (Bld) 0.5 % Normal 0.0-1.0 [facility] Comment on above: Performed By: #### L [id number] #### [facility] ([facility]) [address] [place] [address] Eosinophils (Bld) [#/Vol] 0.14 10*3/uL Normal 0.00-0.50 [facility] Comment on above: Performed By: #### L [id number] #### [facility] ([facility]) [address] [facility] [place] [address] Eosinophils/100 WBC (Bld) 1.0 % Normal 0.0-6.0 [facility] Comment on above: Performed By: #### L [id number] #### [facility] ([facility]) [address] [place] [address] Erythrocyte distribution width (RBC) [Ratio] 18.0 % High 11.5-15.0 [facility] Comment on above: Performed By: #### L [id number] #### [facility] [address] [place] [address] ERYTHROCYTE MEAN CORPUSCULAR HEMOGLOBIN CONCENTRATION (G/DL) BY AUTOMATED 31.5 g/dL Low 32.0-35.0 [facility] Comment on above: Performed By: #### L [id number] #### [facility] ([facility]) [address] [place] [address] Hematocrit (Bld) [Volume fraction] 29.2 % Low 36.0-48.0 [facility] Comment on above: Performed By: #### L [id number] #### [facility] ([facility]) [address] [place] [address] Hemoglobin (Bld) [Mass/Vol] 9.2 g/dL Low 12.0-15.0 [facility] Comment on above: Performed By: #### L [id number] #### [facility] ([facility]) [address] [place] [address] Immature granulocytes (Bld) [#/Vol] 0.13 10*3/uL Normal 0.00-0.20 [facility] Comment on above: Performed By: #### L [id number] #### [facility] ([facility]) [address] [place] [address] Immature granulocytes/100 WBC (Bld) 0.9 % Normal 0.0-1.0 [facility] Comment on above: Performed By: #### L [id number] #### [facility] [address] [place] [address] Lymphocytes (Bld) [#/Vol] 1.59 10*3/uL Normal 1.20-4.00 [facility] Comment on above: Performed By: #### L [id number] #### [facility] [address] [place] [address] Lymphocytes/100 WBC (Bld) 11.3 % Low 20.0-45.0 [facility] Comment on above: Performed By: #### L [id number] #### [facility] ([facility]) [address] [place] [address] MCH (RBC) [Entitic mass] 29.8 pg Normal 27.0-33.0 [facility] Comment on above: Performed By: #### L [id number] #### [facility] [address] [place] [address] MCV (RBC) [Entitic vol] 94.5 fL Normal 82.0-98.0 [facility] Comment on above: Performed By: #### L [id number] #### [facility] ([facility]) [address] [place] [address] Monocytes (Bld) [#/Vol] 1.05 10*3/uL High 0.10-1.00 [facility] Comment on above: Performed By: #### L [id number] #### [facility] ([facility]) [address] [place] [address] Monocytes/100 WBC (Bld) 7.5 % Normal 5.0-12.0 [facility] Comment on above: Performed By: #### L [id number] #### [facility] ([facility]) [address] [place] [address] Neutrophils (Bld) [#/Vol] 11.11 10*3/uL High 1.60-7.60 [facility] Comment on above: Performed By: #### L [id number] #### [facility] [address] [place] [address] Neutrophils/100 WBC (Bld) 78.8 % High 40.0-72.0 [facility] Comment on above: Performed By: #### L [id number] #### [facility] [address] [place] [address] NRBC (PER 100 WBCS) BY AUTOMATED COUNT 0.0 % Normal 0 [facility] Comment on above: Performed By: #### L [id number] #### [facility] [address] [place] [address] PLATELETS (10*3/UL) IN BLOOD AUTOMATED COUNT 189 10*3/uL Normal 150-400 [facility] Comment on above: Performed By: #### L [id number] #### [facility] ([facility]) [address] [place] [address] RBC (Bld) [#/Vol] 3.09 10*6/uL Low 3.80-5.00 [facility] Comment on above: Performed By: #### L [id number] #### [facility] ([facility]) [address] [place] [address] WBC (Bld) [#/Vol] 14.09 10*3/uL High 4.00-10.60 [facility] Comment on above: Performed By: #### L [id number] #### [facility] ([facility]) [address] [place] [address] COMPREHENSIVE METABOLIC PANE Elver 12-29-2023 Albumin [Mass/Vol] 2.7 g/dL Low 3.5-5.7 [facility] Comment on above: Performed By: #### L [id number] #### [facility] ([facility]) [address] [place] [address] ALP [Catalytic activity/Vol] 162 U/L High 34-104 [facility] Comment on above: Performed By: #### L [id number] #### [facility] ([facility]) [address] [place] [address] ALT [Catalytic activity/Vol] 11 U/L Normal 7-52 [facility] Comment on above: Performed By: #### L [id number] #### [facility] ([facility]) [address] [place] [address] Anion gap [Moles/Vol] 11 mmol/L Normal 7-20 [facility] Comment on above: Performed By: #### L [id number] #### [facility] ([facility]) [address] [place] [address] AST [Catalytic activity/Vol] 21 U/L Normal 13-39 [facility] Comment on above: Performed By: #### L [id number] #### [facility] ([facility]) [address] [place] [address] Bilirubin [Mass/Vol] 0.7 mg/dL Normal 0.3-1.0 [facility] Comment on above: Performed By: #### L [id number] #### [facility] ([facility]) [address] [place] [address] Calcium [Mass/Vol] 7.2 mg/dL Low 8.6-10.3 [facility] Comment on above: Performed By: #### L [id number] #### [facility] ([facility]) [address] [place] [address] Chloride [Moles/Vol] 108 mmol/L High 98-107 [facility] Comment on above: Performed By: #### L [id number] #### [facility] ([facility]) [address] [place] [address] CO2 [Moles/Vol] 20 mmol/L Low 21-31 [facility] Comment on above: Performed By: #### L [id number] #### [facility] ([facility]) [address] [place] [address] Creatinine [Mass/Vol] 0.92 mg/dL Normal 0.60-1.20 [facility] Comment on above: Performed By: #### L [id number] #### [facility] ([facility]) [address] [place] [address] GLOMERULAR FILTRATION RATE ML/MIN/1.73 SQ M.PREDICTED 68.7 mL/min/1.73m*2 Normal >60.0 [facility] Comment on above: Result Comment: [facility]???s estimated glomerular filtration rate (eGFR) will no [...] individuals. Performed By: #### L [id number] #### [facility] ([facility]) [address] [place] [address] Glucose [Mass/Vol] 83 mg/dL Normal 70-100 [facility] Comment on above: Performed By: #### L [id number] #### [facility] ([facility]) [address] [place] [address] Potassium [Moles/Vol] 4.5 mmol/L Normal 3.5-5.1 [facility] Comment on above: Performed By: #### L [id number] #### [facility] ([facility]) [address] [place] [address] Protein [Mass/Vol] 5.8 g/dL Low 6.0-8.3 [facility] Comment on above: Performed By: #### L [id number] #### [facility] ([facility]) [address] [place] [address] Sodium [Moles/Vol] 134 mmol/L Low 136-145 [facility] Comment on above: Performed By: #### L [id number] #### [facility] ([facility]) [address] [place] [address] Urea nitrogen [Mass/Vol] 11 mg/dL Normal 7-25 [facility] Comment on above: Performed By: #### L [id number] #### [facility] ([facility]) [address] [place] [address] UREA NITROGEN/CREATININ E (MASS RATIO) IN SER/PLAS 12.0 Normal [facility] Comment on above: Performed By: #### L [id number] #### [facility] ([facility]) [address] [place] [address] MAGNESIUMon 12-29-2023 Magnesium [Mass/Vol] 1.4 mg/dL Low 1.9-2.7 [facility] Comment on above: Performed By: #### L [id number] #### [facility] ([facility]) [address] [place] [address] PHOSPHORUSon 12-29-2023 Magnesium [Mass/Vol] 2.2 mg/dL Low 2.5-5.0 [facility] Comment on above: Performed By: #### L [id number] #### [facility] ([facility]) [address] [place] [address] CBC AND AUTO DIFFon 12-28-19 24 ABSOLUTE BASOPHIL 0.1 X10E9/L Normal 0.0-0.2 [facility] Comment on above: Performed By: #### C BCA, CMP ####[facility] ([id number])[address], [place] [address] ABSOLUTE NEUTROPHIL 9.5 X10E9/L High 1.5-6.6 [facility] Comment on above: Performed By: #### C BCA, CMP ####[facility] ([id number])[address], [place] [address] RBC COUNT 2.70 X10E12/L Low 3.80-5.20 [facility] Comment on above: Performed By: #### C BCA, CMP ####[facility] ([id number])[address], [place] [address] WBC (Bld) [#/Vol] 12.1 10*3/uL High 4.0-11.0 [facility] Comment on above: Performed By: #### C BCA, CMP ####[facility] ([id number])[address] [place] [address] Basophils/100 WBC (Bld) 0.6 % Normal [facility] Comment on above: Performed By: #### C BCA, CMP ####[facility] ([id number])[address] [address], [place] [address] Eosinophils (Bld) [#/Vol] 0.2 10*3/uL Normal 0.0-0.4 [facility] Comment on above: Performed By: #### C BCA, CMP ####[facility] ([id number])[address], [place] [address] Eosinophils/100 WBC (Bld) 1.4 % Normal [facility] Comment on above: Performed By: #### C BCA, CMP ####[facility] ([id number])[address] [address] [address] Erythrocyte distribution width (RBC) [Ratio] 17.8 % High 11.5-15.0 [facility] Comment on above: Performed By: #### C MONSE, CMP ####[facility] ([id number])[address] [address], [place] [address] Hematocrit (Bld) [Volume fraction] 24.4 % Low 35-47 [facility] Comment on above: Performed By: #### C MONSE, CMP ####[facility] ([id number])[address] [address], [place] [address] Hemoglobin (Bld) [Mass/Vol] 8.1 g/dL Low 11.7-15.5 [facility] Comment on above: Performed By: #### C BCA, CMP ####[facility] ([id number])[address] [address], [place] [address] Lymphocytes (Bld) [#/Vol] 1.5 10*3/uL Normal 1.0-3.5 [facility] Comment on above: Performed By: #### C BCA, CMP ####[facility] ([id number])[address] [address], [place] [address] Lymphocytes/100 WBC (Bld) 12.2 % Normal [facility] Comment on above: Performed By: #### C BCA, CMP ####[facility] ([id number])[address] [place] [address] MCH (RBC) [Entitic mass] 30.2 pg Normal 27-34 [facility] Comment on above: Performed By: #### C BCA, CMP ####[facility] ([id number])[address] [place] [address] MCHC (RBC) [Mass/Vol] 33.4 g/dL Normal 32-36 [facility] Comment on above: Performed By: #### C BCA, CMP ####[facility] ([id number])[address], [place] [address] MCV (RBC) [Entitic vol] 90 fL Normal 80-100 [facility] Comment on above: Performed By: #### C BCA, CMP ####[facility] ([id number])[address], [place] [address] Monocytes (Bld) [#/Vol] 0.9 10*3/uL Normal 0-0.9 [facility] Comment on above: Performed By: #### C BCA, CMP ####[facility] ([id number])[address], [place] [address] Monocytes/100 WBC (Bld) 7.3 % Normal [facility] Comment on above: Performed By: #### C BCA, CMP ####[facility] ([id number])[address], [place] [address] Neutrophils/100 WBC (Bld) 78.5 % Normal [facility] Comment on above: Performed By: #### C BCA, CMP ####[facility] ([id number])[address] [place] [address] Platelet mean volume (Bld) [Entitic vol] 8.8 fL Normal 7-12 [facility] Comment on above: Performed By: #### C BCA, CMP ####[facility] ([id number])[address] [address] Platelets (Bld) [#/Vol] 160 10*3/uL Normal 150-450 [facility] Comment on above: Performed By: #### C BCA, CMP ####[facility] ([id number])[address] [address] CBC auto differentialon 11-30 Basophils (Bld) [#/Vol] 0.1 10*3/uL [facility] Interpretation and review of laboratory results Abnormal [facility] Neutrophils (Bld) [#/Vol] 9.5 10*3/uL High [facility] RBC (Bld) [#/Vol] 2.70 10*6/uL Low [facility] WBC corrected for nucl RBC Auto (Bld) [#/Vol] 12.1 High [facility] COMPREHENSIVE METABOLIC PANE [place]ver 12-28-2023 ALT [Catalytic activity/Vol] 13 U/L Normal 0-31 [facility] Comment on above: Performed By: #### C BCA, CMP ####[facility] ([id number])[address] [address] GFR/1.73 sq M.predicted among non-blacks MDRD (S/P/Bld) [Vol rate/Area] 63 mL/min/{1.73_m2} Normal >59 [facility] Comment on above: Result Comment: Repo rted eGFR is based on theCKD-EPI 2020 equation that doesnot use a race coefficient. Performed By: #### C BCA, CMP ####[facility] ([id number])[address] [address] Albumin [Mass/Vol] 2.3 g/dL Low 3.2-5.[address] [facility] Comment on above: Performed By: #### C BCA, CMP ####[facility] ([id number])[address], [place] [address] ALP [Catalytic activity/Vol] 152 U/L High 39-130 [facility] Comment on above: Performed By: #### C BCA, CMP ####[facility] ([id number])[address], [place] [address] Anion gap [Moles/Vol] 6 mmol/L Normal 5-15 [facility] Comment on above: Performed By: #### C BCA, CMP ####[facility] ([id number])[address], [place] [address] AST [Catalytic activity/Vol] 18 U/L Normal 0-41 [facility] Comment on above: Performed By: #### C BCA, CMP ####[facility] ([id number])[address], [place] [address] Calcium [Mass/Vol] 7.0 mg/dL Low 8.5-10.[address] [facility] Comment on above: Performed By: #### C BCA, CMP ####[facility] ([id number])[address], [place] [address] CO2 [Moles/Vol] 22 mmol/L Normal 22-32 [facility] Comment on above: Performed By: #### C BCA, CMP ####[facility] ([id number])[address] [address], [place] [address] Creatinine [Mass/Vol] 0.99 mg/dL Normal 0.40-1.00 [facility] Comment on above: Result Comment: METH OD TRACEABLE TO IDMS STANDARD Performed By: #### C BCA, CMP ####[facility] ([id number])[address] [address], [place] [address] Glucose [Mass/Vol] 102 mg/dL High 65-99 [facility] Comment on above: Performed By: #### C BCA, CMP ####[facility] ([id number])[address], [place] [address] Potassium [Moles/Vol] 4.9 mmol/L Normal 3.5-5.0 [facility] Comment on above: Performed By: #### C BCA, CMP ####[facility] ([id number])[address], [place] [address] Protein [Mass/Vol] 5.4 g/dL Low 6.0-8.[address] [facility] Comment on above: Performed By: #### C BCA, CMP ####[facility] ([id number])[address], [address], [place] [address] Sodium [Moles/Vol] 138 mmol/L Normal 134-[address] [facility] Comment on above: Performed By: #### C BCA, CMP ####[facility] ([id number])[address], [address], [place] [address] Urea nitrogen [Mass/Vol] 12 mg/dL Normal 5-27 [facility] Comment on above: Performed By: #### C BCA, CMP ####[facility] ([id number])[address], [address], [place] [address] Albumin [Mass/Vol] 3.7 g/dL Normal 3.2-5.3 [facility] Comment on above: Performed By: #### C MP ####[facility] ([id number])[address], [address], [place] [address] ALP [Catalytic activity/Vol] 61 U/L Normal 39-130 [facility] Comment on above: Performed By: #### C MP ####[facility] ([id number])[address], [address], [place] [address] ALT [Catalytic activity/Vol] 12 U/L Normal 0-31 [facility] Comment on above: Performed By: #### C MP ####[facility] ([id number])[address], [address], [place] [address] Anion gap [Moles/Vol] 9 mmol/L Normal 5-15 [facility] Comment on above: Performed By: #### C MP ####[facility] ([id number])[address], [address], [place] [address] AST [Catalytic activity/Vol] 14 U/L Normal 0-41 [facility] Comment on above: Performed By: #### C MP ####[facility] ([id number])[address], [address], [place] [address] Bilirubin [Mass/Vol] 0.5 mg/dL Normal 0.3-1.2 [facility] Comment on above: Performed By: #### C MP ####[facility] ([id number])[address], [address], [place] [address] Calcium [Mass/Vol] 8.4 mg/dL Low 8.5-10.5 [facility] Comment on above: Performed By: #### C MP ####[facility] ([id number])[address], [address], [place] [address] Chloride [Moles/Vol] 110 mmol/L High 98-109 [facility] Comment on above: Performed By: #### C MP ####[facility] ([id number])[address], [address], [place] [address] CO2 [Moles/Vol] 21 mmol/L Low 22-32 [facility] Comment on above: Performed By: #### C MP ####[facility] ([id number])[address], [address], [place] [address] Creatinine [Mass/Vol] 0.91 mg/dL Normal 0.40-1.00 [facility] Comment on above: Result Comment: METH OD TRACEABLE TO IDMS STANDARD Performed By: #### C MP ####[facility] ([id number])[address] [address], [place] [address] GFR/1.73 sq M.predicted among non-blacks MDRD (S/P/Bld) [Vol rate/Area] 70 mL/min/{1.73_m2} Normal >59 [facility] Comment on above: Result Comment: Repo rted eGFR is based on theCKD-EPI 2020 equation that doesnot use a race coefficient. Performed By: #### C MP ####[facility] ([id number])[address] [address], [place] [address] Glucose [Mass/Vol] 86 mg/dL Normal 65-99 [facility] Comment on above: Performed By: #### C MP ####[facility] ([id number])[address] [address], [place] [address] Potassium [Moles/Vol] 3.5 mmol/L Normal 3.5-5.0 [facility] Comment on above: Performed By: #### C MP ####[facility] ([id number])[address] [address], [place] [address] Protein [Mass/Vol] 5.5 g/dL Low 6.0-8.0 [facility] Comment on above: Performed By: #### C MP ####[facility] ([id number])[address] [address], [place] [address] Sodium [Moles/Vol] 140 mmol/L Normal 134-146 [facility] Comment on above: Performed By: #### C MP ####[facility] ([id number])[address] [address], [place] [address] Urea nitrogen [Mass/Vol] 9 mg/dL Normal 5-27 [facility] Comment on above: Performed By: #### C MP ####[facility] ([id number])[address] [address], [place] [address] Bilirubin [Mass/Vol] 0.5 mg/dL Normal 0.3-1.2 [facility] Comment on above: Performed By: #### C BCA, CMP ####[facility] ([id number])[address], [address] [address] Chloride [Moles/Vol] 110 mmol/L High 98-109 [facility] Comment on above: Performed By: #### C BCA, CMP ####[facility] ([id number])[address], [address] [address] Comprehensive metabolic pane elver 12-28-2023 ALT No additional P-5'-P [Catalytic activity/Vol] 13 U/L 0 - 31 U/L [facility] Bilirubin [Mass/Vol] 0.5 mg/dL 0.3 - 1.2 mg/dL [facility] Chloride [Moles/Vol] 110 mmol/L High 98 - 109 mmol/L [facility] eGFR (CKD-EPI)non-race dependent 63 - PINF [facility] Interpretation and review of laboratory results Abnormal [facility] Albumin [Mass/Vol] 3.7 g/dL 3.2 [...] eGFR (CKD-EPI)non-race dependent 70 - PINF [facility] Glucose [Mass/Vol] 86 mg/dL 65 - 99 [...] [Mass/Vol] 9 mg/dL 5 - 27 mg/dL [facility] MR PELVIS W WO CONTon 2023 MR PELVIS W WO CONT Normal [facility] MR Pelvis WO and W contrast Kellee 12-28-2023 SECTRAPACS [facility] Bacteria identified Aer cx N om (Bld)on 12-27-2023 Service comment (Unsp spec) [Interp] NO GROWTH 5 DAYS [facility] CBC AND AUTO DIFFon 12-27-19 24 ABSOLUTE BASOPHIL 0.1 X10E9/L Normal 0.0-0.2 [facility] Comment on above: Performed By: #### C BCA, CMP ####[facility] ([id number])[address], [address] [place] [address] ABSOLUTE NEUTROPHIL 11.0 X10E9/L High 1.5-6.6 [facility] Comment on above: Performed By: #### C BCA, CMP ####[facility] ([id number])[address], [address], [place] [address] Basophils/100 WBC (Bld) 0.7 % Normal [facility] Comment on above: Performed By: #### C BCA, CMP ####[facility] ([id number])[address], [address] [place] [address] Eosinophils (Bld) [#/Vol] 0.1 10*3/uL Normal 0.0-0.4 [facility] Comment on above: Performed By: #### C BCA, CMP ####[facility] ([id number])[address] [address], [place] [address] Eosinophils/100 WBC (Bld) 1.0 % Normal [facility] Comment on above: Performed By: #### C BCA, CMP ####[facility] ([id number])[address], [address], [place] [address] Erythrocyte distribution width (RBC) [Ratio] 18.1 % High 11.5-15.0 [facility] Comment on above: Performed By: #### C MONSE, CMP ####[facility] ([id number])[address] [address], [place] [address] Hematocrit (Bld) [Volume fraction] 25.3 % Low 35-47 [facility] Comment on above: Performed By: #### C MONSE, CMP ####[facility] ([id number])[address] [address], [place] [address] Hemoglobin (Bld) [Mass/Vol] 8.3 g/dL Low 11.7-15.5 [facility] Comment on above: Performed By: #### C MONSE, CMP ####[facility] ([id number])[address] [address], [place] [address] Lymphocytes (Bld) [#/Vol] 1.3 10*3/uL Normal 1.0-3.5 [facility] Comment on above: Performed By: #### C MONSE, CMP ####[facility] ([id number])[address] [address], [place] [address] Lymphocytes/100 WBC (Bld) 9.7 % Normal [facility] Comment on above: Performed By: #### C BCA, CMP ####[facility] ([id number])[address] [address] [address] MCH (RBC) [Entitic mass] 29.9 pg Normal 27-34 [facility] Comment on above: Performed By: #### C BCA, CMP ####[facility] ([id number])[address], [address], [place] [address] MCHC (RBC) [Mass/Vol] 33.0 g/dL Normal 32-36 [facility] Comment on above: Performed By: #### C BCA, CMP ####[facility] ([id number])[address], [address] [address] MCV (RBC) [Entitic vol] 91 fL Normal 80-100 [facility] Comment on above: Performed By: #### C BCA, CMP ####[facility] ([id number])[address], [address] [address] Monocytes (Bld) [#/Vol] 0.9 10*3/uL Normal 0-0.9 [facility] Comment on above: Performed By: #### C BCA, CMP ####[facility] ([id number])[address], [address] [address] Monocytes/100 WBC (Bld) 6.7 % Normal [facility] Comment on above: Performed By: #### C BCA, CMP ####[facility] ([id number])[address], [address] [address] Neutrophils/100 WBC (Bld) 81.9 % Normal [facility] Comment on above: Performed By: #### C BCA, CMP ####[facility] ([id number])[address], [address] [address] Platelet mean volume (Bld) [Entitic vol] 8.7 fL Normal 7-12 [facility] Comment on above: Performed By: #### C BCA, CMP ####[facility] ([id number])[address] [address] Platelets (Bld) [#/Vol] 155 10*3/uL Normal 150-450 [facility] Comment on above: Performed By: #### C MONSE, CMP ####[facility] ([id number])[address] [address] RBC COUNT 2.79 X10E12/L Low 3.80-5.20 [facility] Comment on above: Performed By: #### Dru SHEA, CMP ####[facility] ([id number])[address] [address] WBC (Bld) [#/Vol] 13.5 10*3/uL High 4.0-11.0 [facility] Comment on above: Performed By: #### Dru SHEA, CMP ####[facility] ([id number])[address] [address] CBC auto differentialon 11-29 Basophils (Bld) [#/Vol] 0.1 10*3/uL [facility] Basophils/100 WBC (Bld) 0.7 % [facility] Eosinophils (Bld) [#/Vol] 0.1 10*3/uL [facility] Eosinophils/100 WBC (Bld) 1.0 % [facility] Erythrocyte distribution width (RBC) [Ratio] 18.1 % High 11.5 - 15.0 % [facility] Hematocrit (Bld) [Volume fraction] 25.3 % Low 35 - 47 % [facility] Hemoglobin (Bld) [Mass/Vol] 8.3 g/dL Low 11.7 - 15.5 g/dL [facility] Interpretation and review of laboratory results Abnormal [facility] Lymphocytes (Bld) [#/Vol] 1.3 10*3/uL [facility] Lymphocytes/100 WBC (Bld) 9.7 % [facility] MCH (RBC) [Entitic mass] 29.9 pg 27 - 34 pg [facility] MCHC (RBC) [Mass/Vol] 33.0 g/dL [...] System RBC (Bld) [#/Vol] 2.79 10*6/uL Low [facility] WBC corrected for nucl RBC Auto (Bld) [#/Vol] 13.5 High [facility] COMPREHENSIVE METABOLIC PANE Elver 12-27-2023 Albumin [Mass/Vol] 2.4 g/dL Low 3.2-5.3 [facility] Comment on above: Performed By: #### C BCA, CMP ####[facility] ([id number])[address], [address] [place] [address] ALP [Catalytic activity/Vol] 164 U/L High 39-130 [facility] Comment on above: Performed By: #### C BCA, CMP ####[facility] ([id number])[address], [address], [place] [address] ALT [Catalytic activity/Vol] 15 U/L Normal 0-31 [facility] Comment on above: Performed By: #### C BCA, CMP ####[facility] ([id number])[address], [address] [place] [address] Anion gap [Moles/Vol] 6 mmol/L Normal 5-15 [facility] Comment on above: Performed By: #### C BCA, CMP ####[facility] ([id number])[address] [address], [place] [address] AST [Catalytic activity/Vol] 19 U/L Normal 0-41 [facility] Comment on above: Performed By: #### C BCA, CMP ####[facility] ([id number])[address] [address], [place] [address] Bilirubin [Mass/Vol] 0.5 mg/dL Normal 0.3-1.2 [facility] Comment on above: Performed By: #### C BCA, CMP ####[facility] ([id number])[address] [address] [address] Calcium [Mass/Vol] 7.0 mg/dL Low 8.5-10.5 [facility] Comment on above: Performed By: #### C BCA, CMP ####[facility] ([id number])[address] [address] [address] Chloride [Moles/Vol] 110 mmol/L High 98-109 [facility] Comment on above: Performed By: #### C BCA, CMP ####[facility] ([id number])[address] [address] [address] CO2 [Moles/Vol] 21 mmol/L Low 22-32 [facility] Comment on above: Performed By: #### C BCA, CMP ####[facility] ([id number])[address] [address], [place] [address] Creatinine [Mass/Vol] 1.00 mg/dL Normal 0.40-1.00 [facility] Comment on above: Result Comment: METH OD TRACEABLE TO IDMS STANDARD Performed By: #### C BCA, CMP ####[facility] ([id number])[address] [address], [place] [address] GFR/1.73 sq M.predicted among non-blacks MDRD (S/P/Bld) [Vol rate/Area] 62 mL/min/{1.73_m2} Normal >59 [facility] Comment on above: Result Comment: Repo rted eGFR is based on theCKD-EPI 2020 equation that doesnot use a race coefficient. Performed By: #### C BCA, CMP ####[facility] ([id number])[address], [address], [place] [address] Glucose [Mass/Vol] 107 mg/dL High 65-99 [facility] Comment on above: Performed By: #### C BCA, CMP ####[facility] ([id number])[address] [address], [place] [address] Potassium [Moles/Vol] 4.6 mmol/L Normal 3.5-5.0 [facility] Comment on above: Performed By: #### C BCA, CMP ####[facility] ([id number])[address] [address], [place] [address] Protein [Mass/Vol] 5.5 g/dL Low 6.0-8.0 [facility] Comment on above: Performed By: #### C BCA, CMP ####[facility] ([id number])[address], [address], [place] [address] Sodium [Moles/Vol] 137 mmol/L Normal 134-146 [facility] Comment on above: Performed By: #### C BCA, CMP ####[facility] ([id number])[address] [address], [place] [address] Urea nitrogen [Mass/Vol] 15 mg/dL Normal 5-27 [facility] Comment on above: Performed By: #### C BCA, CMP ####[facility] ([id number])[address], [address], [place] [address] Comprehensive metabolic pane elver 12-27-2023 Albumin [Mass/Vol] [...] [Mass/Vol] 15 mg/dL 5 - 27 mg/dL [facility] Glucose Glucometer (BldC) [M ass/Vol]on 12-27-2023 Glucose [Mass/Vol] 93 mg/dL Normal 65-99 [facility] Glucose [Mass/Vol] 93 mg/dL 65 - 99 mg/dL [facility] Glucose [Mass/Vol] 119 mg/dL High 65-99 [facility] Glucose [Mass/Vol] 119 mg/dL High 65 - 99 mg/dL [facility] Interpretation and review of laboratory results Abnormal [facility] Glucose [Mass/Vol] 126 mg/dL High 65-99 [facility] Glucose [Mass/Vol] 126 mg/dL High 65 - 99 mg/dL [facility] Interpretation and review of laboratory results Abnormal [facility] HGB AND HCTon 12-27-2023 Hematocrit (Bld) [Volume fraction] 23.8 % Low 35-47 [facility] Comment on above: Performed By: #### H H ####[facility] ([id number])[address], [address], [place] [address] Hemoglobin (Bld) [Mass/Vol] 8.0 g/dL Low 11.7-15.5 [facility] Comment on above: Performed By: #### H H ####[facility] ([id number])[address], [place] [address] Hematocrit (Bld) [Volume fraction] 23.8 % Low 35-47 [facility] Comment on above: Performed By: #### H H ####[facility] ([id number])[address], [address] [place] [address] Hemoglobin (Bld) [Mass/Vol] 7.8 g/dL Low 11.7-15.5 [facility] Comment on above: Performed By: #### H H ####[facility] ([id number])[address], [address], [place] [address] Hematocrit (Bld) [Volume fraction] 23.6 % Low 35-47 [facility] Comment on above: Performed By: #### H H ####[facility] ([id number])[address], [address], [place] [address] Hemoglobin (Bld) [Mass/Vol] 7.6 g/dL Low 11.7-15.5 [facility] Comment on above: Performed By: #### H H ####[facility] ([id number])[address], [address] [place] [address] Hemoglobin and hematocrit, b loodon 12-27-2023 Hematocrit (Bld) [Volume fraction] 23.8 % Low 35 - 47 % [facility] Hemoglobin (Bld) [Mass/Vol] 8.0 g/dL Low 11.7 - 15.5 g/dL [facility] Interpretation and review of laboratory results Abnormal [facility] Hematocrit (Bld) [Volume fraction] 23.8 % Low 35 - 47 % [facility] Hemoglobin (Bld) [Mass/Vol] 7.8 g/dL Low 11.7 - 15.5 g/dL [facility] Interpretation and review of laboratory results Abnormal [facility] Hematocrit (Bld) [Volume fraction] 23.6 % Low 35 - 47 % [facility] Hemoglobin (Bld) [Mass/Vol] 7.6 g/dL Low 11.7 - 15.5 g/dL [facility] Interpretation and review of laboratory results Abnormal [facility] MR Pelvis WO and W contrast Kellee 12-27-2023 Radiology Study observation (narrative) [facility] Bacteria identified Cx Nom ( U)on 12-26-2023 Interpretation and review of laboratory results Abnormal [facility] Service comment (Unsp spec) [Interp] >100,000 ORGANISMS/mL ENTEROCOCCUS SPECIES Ampicillin or Amoxicillin is the drug of choice for uncomplicated cystitis caused by enterococci. Cephalosporins are inappropriate. Abnormal [facility] Service comment (Unsp spec) [Interp] 50,000 to 100,000 ORGANISMS/mL NORMAL URO GENITAL LALY [facility] Service comment (Unsp spec) [Interp] DR MEDINA REQUESTED SUSCEPTIBILITY 12/23 [facility] CBC AND AUTO DIFFon 12-26-19 24 ABSOLUTE BASOPHIL 0.1 X10E9/L Normal 0.0-0.2 [facility] Comment on above: Performed By: #### C BCA, CMP ####[facility] ([id number])[address] [facility], [address] [place] [address] ABSOLUTE NEUTROPHIL 10.4 X10E9/L High 1.5-6.6 [facility] Comment on above: Performed By: #### C MONSE, CMP ####[facility] ([id number])[address], [place] [address] Basophils/100 WBC (Bld) 0.6 % Normal [facility] Comment on above: Performed By: #### C MONSE, CMP ####[facility] ([id number])[address] [address], [place] [address] Eosinophils (Bld) [#/Vol] 0.2 10*3/uL Normal 0.0-0.4 [facility] Comment on above: Performed By: #### C MONSE, CMP ####[facility] ([id number])[address], [place] [address] Eosinophils/100 WBC (Bld) 1.4 % Normal [facility] Comment on above: Performed By: #### C MONSE, CMP ####[facility] ([id number])[address] [address], [place] [address] Erythrocyte distribution width (RBC) [Ratio] 17.6 % High 11.5-15.0 [facility] Comment on above: Performed By: #### C MONSE, CMP ####[facility] ([id number])[address] [address], [place] [address] Hematocrit (Bld) [Volume fraction] 27.4 % Low 35-47 [facility] Comment on above: Performed By: #### C MONSE, CMP ####[facility] ([id number])[address] [address], [place] [address] Hemoglobin (Bld) [Mass/Vol] 8.8 g/dL Low 11.7-15.5 [facility] Comment on above: Performed By: #### C MONSE, CMP ####[facility] ([id number])[address] [address] Lymphocytes (Bld) [#/Vol] 1.5 10*3/uL Normal 1.0-3.5 [facility] Comment on above: Performed By: #### C BCA, CMP ####[facility] ([id number])[address] [address] Lymphocytes/100 WBC (Bld) 11.6 % Normal [facility] Comment on above: Performed By: #### C BCA, CMP ####[facility] ([id number])[address] [address] MCH (RBC) [Entitic mass] 29.2 pg Normal 27-34 [facility] Comment on above: Performed By: #### C BCA, CMP ####[facility] ([id number])[address] [address] MCHC (RBC) [Mass/Vol] 32.2 g/dL Normal 32-36 [facility] Comment on above: Performed By: #### C BCA, CMP ####[facility] ([id number])[address] [address] MCV (RBC) [Entitic vol] 91 fL Normal 80-100 [facility] Comment on above: Performed By: #### C BCA, CMP ####[facility] ([id number])[address] [address] Monocytes (Bld) [#/Vol] 1.1 10*3/uL High 0-0.9 [facility] Comment on above: Performed By: #### C BCA, CMP ####[facility] ([id number])[address] [address] Monocytes/100 WBC (Bld) 7.9 % Normal [facility] Comment on above: Performed By: #### C MONSE, CMP ####[facility] ([id number])[address] [address] Neutrophils/100 WBC (Bld) 78.5 % Normal [facility] Comment on above: Performed By: #### C MONSE, CMP ####[facility] ([id number])[address] [address] Platelet mean volume (Bld) [Entitic vol] 8.7 fL Normal 7-12 [facility] Comment on above: Performed By: #### C MONSE, CMP ####[facility] ([id number])[address] [address] Platelets (Bld) [#/Vol] 170 10*3/uL Normal 150-450 [facility] Comment on above: Performed By: #### C MONSE, CMP ####[facility] ([id number])[address] [address] RBC COUNT 3.03 X10E12/L Low 3.80-5.20 [facility] Comment on above: Performed By: #### C MONSE, CMP ####[facility] ([id number])[address] [address] WBC (Bld) [#/Vol] 13.3 10*3/uL High 4.0-11.0 [facility] Comment on above: Performed By: #### C MONSE, CMP ####[facility] ([id number])[address] [address] CBC auto differentialon 11-29 Basophils (Bld) [#/Vol] 0.1 10*3/uL [facility] Basophils/100 WBC (Bld) 0.6 % [facility] Eosinophils (Bld) [#/Vol] 0.2 10*3/uL [facility] Eosinophils/100 WBC (Bld) 1.4 % [facility] Erythrocyte distribution width (RBC) [Ratio] 17.6 % High 11.5 - 15.0 % [facility] Hematocrit (Bld) [Volume fraction] 27.4 % Low 35 - 47 % [facility] Hemoglobin (Bld) [Mass/Vol] 8.8 g/dL Low 11.7 - 15.5 g/dL [facility] Interpretation and review of laboratory results Abnormal [facility] Lymphocytes (Bld) [#/Vol] 1.5 10*3/uL [facility] Lymphocytes/100 WBC (Bld) 11.6 % [facility] MCH (RBC) [Entitic mass] 29.2 pg 27 - 34 pg [facility] MCHC (RBC) [Mass/Vol] 32.2 g/dL 32 - 36 g/dL [facility] MCV (RBC) [Entitic vol] 91 fL 80 - 100 fL [facility] Monocytes (Bld) [#/Vol] 1.1 10*3/uL High [facility] Monocytes/100 WBC (Bld) 7.9 % [facility] Neutrophils (Bld) [#/Vol] 10.4 10*3/uL High [facility] Neutrophils/100 WBC (Bld) 78.5 % [facility] Platelet mean volume (Bld) [Entitic vol] 8.7 fL 7 - 12 fL [facility] Platelets (Bld) [#/Vol] 170 10*3/uL [facility] [facility] RBC (Bld) [#/Vol] 3.03 10*6/uL Low [facility] WBC corrected for nucl RBC Auto (Bld) [#/Vol] 13.3 High [facility] COMPREHENSIVE METABOLIC PANE Elver 12-26-2023 Albumin [Mass/Vol] 2.4 g/dL Low 3.2-5.3 [facility] Comment on above: Performed By: #### C BCA, CMP ####[facility] ([id number])[address] [facility], [address] [place] [address] ALP [Catalytic activity/Vol] 171 U/L High 39-130 [facility] Comment on above: Performed By: #### C BCA, CMP ####[facility] ([id number])[address], [address], [place] [address] ALT [Catalytic activity/Vol] 16 U/L Normal 0-31 [facility] Comment on above: Performed By: #### C BCA, CMP ####[facility] ([id number])[address], [address], [place] [address] Anion gap [Moles/Vol] 9 mmol/L Normal 5-15 [facility] Comment on above: Performed By: #### C BCA, CMP ####[facility] ([id number])[address], [address], [place] [address] AST [Catalytic activity/Vol] 23 U/L Normal 0-41 [facility] Comment on above: Performed By: #### C BCA, CMP ####[facility] ([id number])[address], [address], [place] [address] Bilirubin [Mass/Vol] 0.6 mg/dL Normal 0.3-1.2 [facility] Comment on above: Performed By: #### C BCA, CMP ####[facility] ([id number])[address], [address], [place] [address] Calcium [Mass/Vol] 6.8 mg/dL Critically low 8.5-10.5 [facility] Comment on above: Performed By: #### C BCA, CMP ####[facility] ([id number])[address], [address], [place] [address] Chloride [Moles/Vol] 110 mmol/L High 98-109 [facility] Comment on above: Performed By: #### C BCA, CMP ####[facility] ([id number])[address], [address], [place] [address] CO2 [Moles/Vol] 18 mmol/L Low 22-32 [facility] Comment on above: Performed By: #### C BCA, CMP ####[facility] ([id number])[address] [address], [place] [address] Creatinine [Mass/Vol] 1.11 mg/dL High 0.40-1.00 [facility] Comment on above: Result Comment: METH OD TRACEABLE TO IDMS STANDARD Performed By: #### C BCA, CMP ####[facility] ([id number])[address] [address], [place] [address] GFR/1.73 sq M.predicted among non-blacks MDRD (S/P/Bld) [Vol rate/Area] 55 mL/min/{1.73_m2} Low >59 [facility] Comment on above: Result Comment: Repo rted eGFR is based on theCKD-EPI 2020 equation that doesnot use a race coefficient. Performed By: #### C BCA, CMP ####[facility] ([id number])[address] [address] [place] [address] Glucose [Mass/Vol] 112 mg/dL High 65-99 [facility] Comment on above: Performed By: #### C BCA, CMP ####[facility] ([id number])[address] [address] [place] [address] Potassium [Moles/Vol] 4.3 mmol/L Normal 3.5-5.0 [facility] Comment on above: Performed By: #### C BCA, CMP ####[facility] ([id number])[address] [address] Protein [Mass/Vol] 5.6 g/dL Low 6.0-8.0 [facility] Comment on above: Performed By: #### C BCA, CMP ####[facility] ([id number])[address] [address] Sodium [Moles/Vol] 137 mmol/L Normal 134-146 [facility] Comment on above: Performed By: #### C BCA, CMP ####[facility] ([id number])[address], [address] [place] [address] Urea nitrogen [Mass/Vol] 20 mg/dL Normal 5-27 [facility] Comment on above: Performed By: #### C BCA, CMP ####[facility] ([id number])[address], [address] [place] [address] Calcium.ionized (Bld) [Mass/ Vol]on 12-26-2023 IONIZED CALCIUM 4.1 mg/dL Low 4.5-5.3 [facility] Comment on above: Performed By: #### 3 8230-9 ####[facility] ([id number])[address], [address] [place] [address] Interpretation and review of laboratory results Abnormal [facility] Comprehensive metabolic pane elver 12-26-2023 Albumin [Mass/Vol] [...] [Mass/Vol] 20 mg/dL 5 - 27 mg/dL [facility] Crossmatch RBC:Number of Uni ts: 1on 12-26-2023 BB Type Barcode 5100 [facility] Blood component type [id number] [facility] Crossmatch Compatible [facility] Expiration Date [id number] [facility] Status of unit TRANSFUSED [facility] Unit ABO O [facility] Unit number [id number] [facility] RH Positive [facility] Glucose Glucometer (BldC) [M ass/Vol]on 12-26-2023 Glucose [Mass/Vol] 112 mg/dL High 65-99 [facility] Glucose [Mass/Vol] 112 mg/dL High 65 - 99 mg/dL [facility] Interpretation and review of laboratory results Abnormal [facility] Glucose [Mass/Vol] 125 mg/dL High 65-99 [facility] Glucose [Mass/Vol] 125 mg/dL High 65 - 99 mg/dL [facility] Interpretation and review of laboratory results Abnormal [facility] Glucose [Mass/Vol] 109 mg/dL High 65-99 [facility] Glucose [Mass/Vol] 109 mg/dL High 65 - 99 mg/dL [facility] Interpretation and review of laboratory results Abnormal [facility] HGB AND HCTon 12-26-2023 Hematocrit (Bld) [Volume fraction] 25.6 % Low 35-47 [facility] Comment on above: Performed By: #### H H ####[facility] ([id number])[address], [address], [place] [address] Hemoglobin (Bld) [Mass/Vol] 8.4 g/dL Low 11.7-15.5 [facility] Comment on above: Performed By: #### H H ####[facility] ([id number])[address], [address], [place] [address] Hematocrit (Bld) [Volume fraction] 21.0 % Low 35-47 [facility] Comment on above: Performed By: #### H H ####[facility] ([id number])[address], [address], [place] [address] Hemoglobin (Bld) [Mass/Vol] 6.8 g/dL Critically low 11.7-15.5 [facility] Comment on above: Performed By: #### H H ####[facility] ([id number])[address], [address] [place] [address] Hemoglobin and hematocrit, b loodon 12-26-2023 Interpretation and review of laboratory results Abnormal [facility] Hematocrit (Bld) [Volume fraction] 21.0 % Low 35 - 47 % [facility] Hemoglobin (Bld) [Mass/Vol] 6.8 g/dL Critically low 11.7 - 15.5 g/dL [facility] Interpretation and review of laboratory results Abnormal [facility] Ionized calciumon 12-26-2023 Calcium.ionized (Bld) [Mass/Vol] 4.1 mg/dL Low 4.5 - 5.3 mg/dL [facility] Lactate (P stan) [Moles/Vol]o n 12-26-2023 LACTATE W/REFLEX 0.9 mmol/L Normal 0.4-2.0 [facility] Comment on above: Result Comment: Resu lt did not trigger repeat Lactate,re-order if needed. Performed By: #### 3 2133-1 ####[facility] ([id number])[address], [address] [place] [address] [facility] Lactate w/ Reflexon 12-26-19 24 Lactate (P stan) [Moles/Vol] 0.9 mmol/L 0.4 - 2.0 mmol/L [facility] Type and screen(includes ind irect aram)on 12-26-2023 ABO O [facility] Rh Nom (Bld) Positive [facility] Vancomycin trough [Mass/Vol] on 12-26-2023 VANCOMYCIN TROUGH 25.2 ug/mL Critically high 5.0-20.0 [facility] Comment on above: Performed By: #### 4 092-3 ####[facility] ([id number])[address] [facility], [address], [place] [address] Interpretation and review of laboratory results Abnormal [facility] Vancomycin, troughon 024 Vancomycin trough [Mass/Vol] 25.2 ug/mL Critically high 5.0 - 20.0 ug/mL [facility] Anti XA unfractionated hepar inon 12-25-2023 Heparin unfractionated Chromogenic method Qn (PPP) Low [facility] Bacteria identified Aer cx N om (Wound)on 12-25-2023 Interpretation and review of laboratory results Abnormal [facility] Microscopic observation Gram stain Nom (Unsp spec) >25 WHITE BLOOD CELLS/LPF [facility] Microscopic observation Gram stain Nom (Unsp spec) 10 to 24 SQUAMOUS EPITHELIAL CELLS/LPF [facility] Microscopic observation Gram stain Nom (Unsp spec) RARE GRAM POSITIVE COCCI IN CLUSTERS INTRACELLULAR EXTRACELLULAR [facility] Microscopic observation Gram stain Nom (Unsp spec) Positive Abnormal [facility] Service comment (Unsp spec) [Interp] FEW ESCHERICHIA COLI Abnormal [facility] Service comment (Unsp spec) [Interp] RARE STAPHYLOCOCCUS AUREUS METHICILLIN RESISTANT Abnormal [facility] Service comment (Unsp spec) [Interp] RARE STREPTOCOCCUS PYOGENES (GROUP A) Abnormal [facility] Service comment (Unsp spec) [Interp] ALONG WITH FEW NORMAL SKIN LALY [facility] CBC AND AUTO DIFFon 12-25-19 ABSOLUTE BASOPHIL 0.1 X10E9/L Normal 0.0-0.2 [facility] Comment on above: Performed By: #### Dru SHEA, 3273-, CMP ####[facility] ([id number])[address], [address] [place] [address] ABSOLUTE NEUTROPHIL 10.4 X10E9/L High 1.5-6.6 [facility] Comment on above: Performed By: #### Dru SHEA, 3274-04, CMP ####[facility] ([id number])[address], [address], [place] [address] Basophils/100 WBC (Bld) 0.5 % Normal [facility] Comment on above: Performed By: #### Dru SHEA, 3274-04, CMP ####[facility] ([id number])[address], [address] [address] Eosinophils (Bld) [#/Vol] 0.1 10*3/uL Normal 0.0-0.4 [facility] Comment on above: Performed By: #### Dru SHEA, 3274-04, CMP ####[facility] ([id number])[address], [address] [address] Eosinophils/100 WBC (Bld) 0.9 % Normal [facility] Comment on above: Performed By: #### Dru SHEA, 3274-04, CMP ####[facility] ([id number])[address], [address] [address] Erythrocyte distribution width (RBC) [Ratio] 18.3 % High 11.5-15.0 [facility] Comment on above: Performed By: #### Dru SHEA, 3274-04, CMP ####[facility] ([id number])[address] [address] [place] [address] Hematocrit (Bld) [Volume fraction] 22.6 % Low 35-47 [facility] Comment on above: Performed By: #### Dru SHEA, 3274-04, CMP ####[facility] ([id number])[address] [address], [place] [address] Hemoglobin (Bld) [Mass/Vol] 7.3 g/dL Low 11.7-15.5 [facility] Comment on above: Performed By: #### Dru SHEA, 3273-, CMP ####[facility] ([id number])[address] [address] Lymphocytes (Bld) [#/Vol] 1.4 10*3/uL Normal 1.0-3.5 [facility] Comment on above: Performed By: #### Dru SHEA, 3274-04, CMP ####[facility] ([id number])[address] [address] Lymphocytes/100 WBC (Bld) 10.6 % Normal [facility] Comment on above: Performed By: #### Dru SHEA, 3274-04, CMP ####[facility] ([id number])[address] [address] MCH (RBC) [Entitic mass] 29.1 pg Normal 27-34 [facility] Comment on above: Performed By: #### Dru SHEA, 3274-04, CMP ####[facility] ([id number])[address] [address] MCHC (RBC) [Mass/Vol] 32.2 g/dL Normal 32-36 [facility] Comment on above: Performed By: #### Dru SHEA, 3273-, CMP ####[facility] ([id number])[address], [address] [address] MCV (RBC) [Entitic vol] 90 fL Normal 80-100 [facility] Comment on above: Performed By: #### Dru SHEA, 48, CMP ####[facility] ([id number])[address], [address] [place] [address] Monocytes (Bld) [#/Vol] 1.0 10*3/uL High 0-0.9 [facility] Comment on above: Performed By: #### Dru SHEA, 3274-04, CMP ####[facility] ([id number])[address], [address], [place] [address] Monocytes/100 WBC (Bld) 7.5 % Normal [facility] Comment on above: Performed By: #### Dru SHEA 3274-04, CMP ####[facility] ([id number])[address], [address], [place] [address] Neutrophils/100 WBC (Bld) 80.5 % Normal [facility] Comment on above: Performed By: #### Dru SHEA, 3274-04, CMP ####[facility] ([id number])[address], [address] [address] Platelet mean volume (Bld) [Entitic vol] 8.8 fL Normal 7-12 [facility] Comment on above: Performed By: #### Dru SHEA 3274-04, CMP ####[facility] ([id number])[address] [address] [address] Platelets (Bld) [#/Vol] 189 10*3/uL Normal 150-450 [facility] Comment on above: Performed By: #### Dru SHEA, 3274-04, CMP ####[facility] ([id number])[address], [address] [address] RBC COUNT 2.50 X10E12/L Low 3.80-5.20 [facility] Comment on above: Performed By: #### C MONSE, 3274-8, CMP ####[facility] ([id number])[address], [address], [place] [address] WBC (Bld) [#/Vol] 13.0 10*3/uL High 4.0-11.0 [facility] Comment on above: Performed By: #### Dru SHEA, 3274-8, CMP ####[facility] ([id number])[address], [address], [place] [address] CBC auto differentialon 11-29 Basophils (Bld) [#/Vol] 0.1 10*3/uL [facility] Basophils/100 WBC (Bld) 0.5 % [facility] Eosinophils (Bld) [#/Vol] 0.1 10*3/uL [facility] Eosinophils/100 WBC (Bld) 0.9 % [facility] Erythrocyte distribution width (RBC) [Ratio] 18.3 % High 11.5 - 15.0 % [facility] Hematocrit (Bld) [Volume fraction] 22.6 % Low 35 - 47 % [facility] Hemoglobin (Bld) [Mass/Vol] 7.3 g/dL Low 11.7 - 15.5 g/dL [facility] Interpretation and review of laboratory results Abnormal [facility] Lymphocytes (Bld) [#/Vol] 1.4 10*3/uL [facility] Lymphocytes/100 WBC (Bld) 10.6 % [facility] MCH (RBC) [Entitic mass] 29.1 pg 27 - 34 pg [facility] MCHC (RBC) [Mass/Vol] 32.2 g/dL 32 - 36 g/dL [facility] MCV (RBC) [Entitic vol] 90 fL 80 - 100 fL [facility] Monocytes (Bld) [#/Vol] 1.0 10*3/uL High [facility] Monocytes/100 WBC (Bld) 7.5 % [facility] Neutrophils (Bld) [#/Vol] 10.4 10*3/uL High [facility] Neutrophils/100 WBC (Bld) 80.5 % [facility] Platelet mean volume (Bld) [Entitic vol] 8.8 fL 7 - 12 fL [facility] Platelets (Bld) [#/Vol] 189 10*3/uL [facility] RBC (Bld) [#/Vol] 2.50 10*6/uL Low [facility] WBC corrected for nucl RBC Auto (Bld) [#/Vol] 13.0 High [facility] COMPREHENSIVE METABOLIC PANE Elver 12-25-2023 Albumin [Mass/Vol] 2.1 g/dL Low 3.2-5.3 [facility] Comment on above: Performed By: #### Dru SHEA, 3274-8, CMP ####[facility] ([id number])[address], [address] [place] [address] ALP [Catalytic activity/Vol] 174 U/L High 39-130 [facility] Comment on above: Performed By: #### Dru SHEA, 3274-8, CMP ####[facility] ([id number])[address], [address] [place] [address] ALT [Catalytic activity/Vol] 16 U/L Normal 0-31 [facility] Comment on above: Performed By: #### Dru SHEA, 3274-8, CMP ####[facility] ([id number])[address], [address] [place] [address] Anion gap [Moles/Vol] 8 mmol/L Normal 5-15 [facility] Comment on above: Performed By: #### Dru BCA, 3274-8, CMP ####[facility] ([id number])[address], [address] [place] [address] AST [Catalytic activity/Vol] 23 U/L Normal 0-41 [facility] Comment on above: Performed By: #### Dru BCA, 3274-8, CMP ####[facility] ([id number])[address] [address], [place] [address] Bilirubin [Mass/Vol] 0.4 mg/dL Normal 0.3-1.2 [facility] Comment on above: Performed By: #### C BCA, 3274-8, CMP ####[facility] ([id number])[address], [address], [place] [address] Calcium [Mass/Vol] 6.8 mg/dL Critically low 8.5-10.5 [facility] Comment on above: Performed By: #### C BCA, 3274-8, CMP ####[facility] ([id number])[address], [address], [place] [address] Chloride [Moles/Vol] 115 mmol/L High 98-109 [facility] Comment on above: Performed By: #### Dru BCA, 3274-8, CMP ####[facility] ([id number])[address] [address] [place] [address] CO2 [Moles/Vol] 20 mmol/L Low 22-32 [facility] Comment on above: Performed By: #### C BCA, 3274-8, CMP ####[facility] ([id number])[address] [address] [place] [address] Creatinine [Mass/Vol] 1.14 mg/dL High 0.40-1.00 [facility] Comment on above: Result Comment: METH OD TRACEABLE TO IDMS STANDARD Performed By: #### C BCA, 3274-8, CMP ####[facility] ([id number])[address] [place] [address] GFR/1.73 sq M.predicted among non-blacks MDRD (S/P/Bld) [Vol rate/Area] 53 mL/min/{1.73_m2} Low >59 [facility] Comment on above: Result Comment: Repo rted eGFR is based on theCKD-EPI 2020 equation that doesnot use a race coefficient. Performed By: #### C BCA, 3273-8, CMP ####[facility] ([id number])[address], [address], [place] [address] Glucose [Mass/Vol] 96 mg/dL Normal 65-99 [facility] Comment on above: Performed By: #### C BCA, 3273-8, CMP ####[facility] ([id number])[address], [address] [place] [address] Potassium [Moles/Vol] 4.4 mmol/L Normal 3.5-5.0 [facility] Comment on above: Performed By: #### C BCA, 3273-8, CMP ####[facility] ([id number])[address], [address], [place] [address] Protein [Mass/Vol] 5.0 g/dL Low 6.0-8.0 [facility] Comment on above: Performed By: #### C BCA, 3273-8, CMP ####[facility] ([id number])[address] [address] [place] [address] Sodium [Moles/Vol] 143 mmol/L Normal 134-146 [facility] Comment on above: Performed By: #### C BCA, 3273-8, CMP ####[facility] ([id number])[address] [address], [place] [address] Urea nitrogen [Mass/Vol] 24 mg/dL Normal 5-27 [facility] Comment on above: Performed By: #### C BCA, 3273-8, CMP ####[facility] ([id number])[address] [address] [place] [address] Calcium.ionized (Bld) [Mass/ Vol]on 12-25-2023 IONIZED CALCIUM 4.4 mg/dL Low 4.5-5.3 [facility] Comment on above: Performed By: #### 3 8230-9 ####[facility] ([id number])[address] [facility], [address] [place] [address] Interpretation and review of laboratory results Abnormal [facility] IONIZED CALCIUM 4.4 mg/dL Low 4.5-5.3 [facility] Comment on above: Performed By: #### 3 8230-9 ####[facility] ([id number])[address] [facility], [address] [place] [address] Interpretation and review of laboratory results Abnormal [facility] Comprehensive metabolic pane elver 12-25-2023 Albumin [Mass/Vol] [...] low 8.5 - 1 0.5 mg/dL [facility] Chloride [Moles/Vol] 115 mmol/L High 98 - 109 mmol/L [facility] CO2 [Moles/Vol] 20 mmol/L Low 22 - [...] [Mass/Vol] 24 mg/dL 5 - 27 mg/dL [facility] ECG 12 leadon 12-25-2023 TRACEMASTERVUE [facility] Glucose Glucometer (BldC) [M ass/Vol]on 12-25-2023 Glucose [Mass/Vol] 108 mg/dL High 65-99 [facility] Glucose [Mass/Vol] 108 mg/dL High 65 - 99 mg/dL [facility] Interpretation and review of laboratory results Abnormal [facility] Glucose [Mass/Vol] 106 mg/dL High 65-99 [facility] Glucose [Mass/Vol] 106 mg/dL High 65 - 99 mg/dL [facility] Interpretation and review of laboratory results Abnormal [facility] Glucose [Mass/Vol] 112 mg/dL High 65-99 [facility] Glucose [Mass/Vol] 112 mg/dL High 65 - 99 mg/dL [facility] Interpretation and review of laboratory results Abnormal [facility] Glucose [Mass/Vol] 99 mg/dL Normal 65-99 [facility] Glucose [Mass/Vol] 99 mg/dL 65 - 99 mg/dL [facility] HGB AND HCTon 12-25-2023 Hematocrit (Bld) [Volume fraction] 21.6 % Low 35-47 [facility] Comment on above: Performed By: #### H H ####[facility] ([id number])[address], [address] [place] [address] Hemoglobin (Bld) [Mass/Vol] 6.9 g/dL Critically low 11.7-15.5 [facility] Comment on above: Performed By: #### H H ####[facility] ([id number])[address], [address] [place] [address] Hematocrit (Bld) [Volume fraction] 24.1 % Low 35-47 [facility] Comment on above: Performed By: #### H H ####[facility] ([id number])[address], [address] [place] [address] Hemoglobin (Bld) [Mass/Vol] 7.9 g/dL Low 11.7-15.5 [facility] Comment on above: Performed By: #### H H ####[facility] ([id number])[address], [address] [place] [address] Hematocrit (Bld) [Volume fraction] 22.2 % Low 35-47 [facility] Comment on above: Performed By: #### H H, 65400-3 ####[facility] ([id number])[address], [address] [place] [address] Hemoglobin (Bld) [Mass/Vol] 7.1 g/dL Low 11.7-15.5 [facility] Comment on above: Performed By: #### H H, 24062-3 ####[facility] ([id number])[address], [address] [place] [address] Hemoglobin and hematocrit, b loodon 12-25-2023 Interpretation and review of laboratory results Abnormal [facility] Hematocrit (Bld) [Volume fraction] 24.1 % Low 35 - 47 % [facility] Hemoglobin (Bld) [Mass/Vol] 7.9 g/dL Low 11.7 - 15.5 g/dL [facility] Interpretation and review of laboratory results Abnormal [facility] Heparin unfractionated Chrom ogenic method Qn (PPP)on 12-25-2023 ANTI XA UFH <0.04 Low 0.30-0.70 [facility] Comment on above: Result Comment: Opti mal time for testing is 6 hrs post dosageThis test is specific for monitoring patientson UFH, and is not recommended for use withother Anti-Xa medications. Performed By: #### C BCA, 3274-8, CMP ####[facility] ([id number])[address] [place] [address], [address] [place] [address] Interpretation and review of laboratory results Abnormal [facility] Ionized calciumon 12-25-2023 Calcium.ionized (Bld) [Mass/Vol] 4.4 mg/dL Low 4.5 - 5.3 mg/dL [facility] Calcium.ionized (Bld) [Mass/Vol] 4.4 mg/dL Low 4.5 - 5.3 mg/dL [facility] RESP PATHOGENS/QVPN-HfA-3kn 12-25-2023 Respiratory pathogens DNA and RNA panel CHELLY+non-probe (Nph) Normal [facility] Comment on above: Performed By: #### 8 2159-5 ####[facility] ([id number])[address] [place] [address], [address] [place] [address] Respiratory pathogens DNA an d RNA panel CHELLY+non-probe (Nph)on 12-25-2023 Adenovirus DNA CHELLY+non-probe Ql (Nph) Not detected Not Detected^No t Detected [facility] B. parapertussis [id number] DNA CHELLY+non-probe Ql (Nph) Not detected Not Detected^No t Detected [facility] B. pertussis toxin promoter region CHELLY+non-probe Ql (Nph) Not detected Not Detected^No t Detected [facility] C. pneumoniae DNA CHELLY+non-probe Ql (Nph) Not detected Not Detected^No t Detected [facility] FLUAV RNA CHELLY+non-probe Ql (Nph) Not detected Not Detected^No t Detected [facility] FLUBV RNA CHELLY+non-probe Ql (Nph) Not detected Not Detected^No t Detected [facility] HCoV 229E RNA CHELLY+non-probe Ql (Nph) Not detected Not Detected^No t Detected [facility] HCoV HKU1 RNA CHELLY+non-probe Ql (Nph) Not detected Not Detected^No t Detected [facility] HCoV NL63 RNA CHELLY+non-probe Ql (Nph) Not detected Not Detected^No t Detected [facility] HCoV OC43 RNA CHELLY+non-probe Ql (Nph) Not detected Not Detected^No t Detected [facility] hMPV RNA CHELLY+non-probe Ql (Nph) Not detected Not Detected^No t Detected [facility] M. pneumoniae DNA CHELLY+non-probe Ql (Nph) Not detected Not Detected^No t Detected [facility] Parainfluenza virus 1 RNA CHELLY+non-probe Ql (Nph) Not detected Not Detected^No t Detected [facility] Parainfluenza virus 2 RNA CHELLY+non-probe Ql (Nph) Not detected Not Detected^No t Detected [facility] Parainfluenza virus 3 RNA CHELLY+non-probe Ql (Nph) [...] Specimen source Nom (Body fld) NASO PHARYNX [facility] TROPONIN Ion 12-25-2023 Troponin I.cardiac [Mass/Vol] 0.10 ng/mL High 0.00-0.04 [facility] Comment on above: Result Comment: Conc entrations greater than or equalto 0.05 ng/ml are considered elevated.Elevations of Troponin may be due to causesother than myocardial ischemia. Recommendserial Troponin testing be performed. Performed By: #### H H, 69858-4 ####[facility] ([id number])[address] [facility], [address] [place] [address] Troponin Ion 12-25-2023 Troponin I.cardiac [Mass/Vol] 0.10 ng/mL High 0.00 - 0.04 ng/mL [facility] Troponin I.cardiac [Mass/Vol ]on 12-25-2023 Interpretation and review of laboratory results Abnormal [facility] Anti XA unfractionated hepar inon 12-24-2023 Heparin unfractionated Chromogenic method Qn (PPP) 0.42 [facility] BASIC METABOLIC PANLon 12-23 Anion gap [Moles/Vol] 8 mmol/L Normal 5-15 [facility] Comment on above: Performed By: #### B MP ####[facility] ([id number])[address] [address], [place] [address] Calcium [Mass/Vol] 6.7 mg/dL Critically low 8.5-10.5 [facility] Comment on above: Performed By: #### B MP ####[facility] ([id number])[address] [address] [place] [address] Chloride [Moles/Vol] 113 mmol/L High 98-109 [facility] Comment on above: Performed By: #### B MP ####[facility] ([id number])[address] [address] [place] [address] CO2 [Moles/Vol] 20 mmol/L Low 22-32 [facility] Comment on above: Performed By: #### B MP ####[facility] ([id number])[address] [address] [place] [address] Creatinine [Mass/Vol] 1.11 mg/dL High 0.40-1.00 [facility] Comment on above: Result Comment: METH OD TRACEABLE TO IDMS STANDARD Performed By: #### B MP ####[facility] ([id number])[address] [address], [place] [address] GFR/1.73 sq M.predicted among non-blacks MDRD (S/P/Bld) [Vol rate/Area] 55 mL/min/{1.73_m2} Low >59 [facility] Comment on above: Result Comment: Repo rted eGFR is based on theD-EPI 2020 equation that doesnot use a race coefficient. Performed By: #### B MP ####[facility] ([id number])[address] [address] [place] [address] Glucose [Mass/Vol] 95 mg/dL Normal 65-99 [facility] Comment on above: Performed By: #### B MP ####[facility] ([id number])[address] [address] Potassium [Moles/Vol] 4.2 mmol/L Normal 3.5-5.0 [facility] Comment on above: Performed By: #### B MP ####[facility] ([id number])[address] [address] Sodium [Moles/Vol] 141 mmol/L Normal 134-146 [facility] Comment on above: Performed By: #### B MP ####[facility] ([id number])[address] [address] Urea nitrogen [Mass/Vol] 26 mg/dL Normal 5-27 [facility] Comment on above: Performed By: #### B MP ####[facility] ([id number])[address] [address] Basic Metabolic Panelon -2 Anion gap [Moles/Vol] 8 mmol/L 5 - 15 mmol/L [facility] Calcium [Mass/Vol] 6.7 mg/dL Critically low 8.5 - 1 0.5 mg/dL [facility] Chloride [Moles/Vol] 113 mmol/L High 98 - 109 mmol/L [facility] CO2 [Moles/Vol] 20 mmol/L Low 22 - 32 mmol/L [facility] Creatinine [Mass/Vol] 1.11 mg/dL High 0.40 - [...] [Mass/Vol] 26 mg/dL 5 - 27 mg/dL [facility] CBC AND AUTO DIFFon 12-24-19 ABSOLUTE BASOPHIL 0.1 X10E9/L Normal 0.0-0.2 [facility] Comment on above: Performed By: #### 3 274-8, CBCA, CMP ####[facility] ([id number])[address], [address] [place] [address] ABSOLUTE NEUTROPHIL 14.8 X10E9/L High 1.5-6.6 [facility] Comment on above: Performed By: #### 3 274-8, CBCA, CMP ####[facility] ([id number])[address], [address] [place] [address] Basophils/100 WBC (Bld) 0.3 % Normal [facility] Comment on above: Performed By: #### 3 274-8, CBCA, CMP ####[facility] ([id number])[address], [address] [place] [address] Eosinophils (Bld) [#/Vol] 0.1 10*3/uL Normal 0.0-0.4 [facility] Comment on above: Performed By: #### 3 274-8, CBCA, CMP ####[facility] ([id number])[address], [address] [place] [address] Eosinophils/100 WBC (Bld) 0.5 % Normal [facility] Comment on above: Performed By: #### 3 274-8, CBCA, CMP ####[facility] ([id number])[address] [address], [place] [address] Erythrocyte distribution width (RBC) [Ratio] 18.1 % High 11.5-15.0 [facility] Comment on above: Performed By: #### 3 274-8, CBCA, CMP ####[facility] ([id number])[address], [address], [place] [address] Hematocrit (Bld) [Volume fraction] 24.4 % Low 35-47 [facility] Comment on above: Performed By: #### 3 274-8, CBCA, CMP ####[facility] ([id number])[address], [address], [place] [address] Hemoglobin (Bld) [Mass/Vol] 7.9 g/dL Low 11.7-15.5 [facility] Comment on above: Performed By: #### 3 274-8, CBCA, CMP ####[facility] ([id number])[address] [address] Lymphocytes (Bld) [#/Vol] 1.8 10*3/uL Normal 1.0-3.5 [facility] Comment on above: Performed By: #### 3 274-8, CBCA, CMP ####[facility] ([id number])[address] [address] Lymphocytes/100 WBC (Bld) 10.3 % Normal [facility] Comment on above: Performed By: #### 3 274-8, CBCA, CMP ####[facility] ([id number])[address] [address] MCH (RBC) [Entitic mass] 29.1 pg Normal 27-34 [facility] Comment on above: Performed By: #### 3 274-8, CBCA, CMP ####[facility] ([id number])[address], [address] [place] [address] MCHC (RBC) [Mass/Vol] 32.5 g/dL Normal 32-36 [facility] Comment on above: Performed By: #### 3 274-8, CBCA, CMP ####[facility] ([id number])[address], [address] [address] MCV (RBC) [Entitic vol] 90 fL Normal 80-100 [facility] Comment on above: Performed By: #### 3 274-8, CBCA, CMP ####[facility] ([id number])[address], [address] [place] [address] Monocytes (Bld) [#/Vol] 1.1 10*3/uL High 0-0.9 [facility] Comment on above: Performed By: #### 3 274-8, CBCA, CMP ####[facility] ([id number])[address] [address], [place] [address] Monocytes/100 WBC (Bld) 6.4 % Normal [facility] Comment on above: Performed By: #### 3 274-8, CBCA, CMP ####[facility] ([id number])[address], [address] [place] [address] Neutrophils/100 WBC (Bld) 82.5 % Normal [facility] Comment on above: Performed By: #### 3 274-8, CBCA, CMP ####[facility] ([id number])[address], [address], [place] [address] Platelet mean volume (Bld) [Entitic vol] 8.9 fL Normal 7-12 [facility] Comment on above: Performed By: #### 3 274-8, CBCA, CMP ####[facility] ([id number])[address], [address], [place] [address] Platelets (Bld) [#/Vol] 211 10*3/uL Normal 150-450 [facility] Comment on above: Performed By: #### 3 274-8, CBCA, CMP ####[facility] ([id number])[address], [address] [place] [address] RBC COUNT 2.72 X10E12/L Low 3.80-5.20 [facility] Comment on above: Performed By: #### 3 274-8, CBCA, CMP ####[facility] ([id number])[address], [address] [place] [address] WBC (Bld) [#/Vol] 17.9 10*3/uL High 4.0-11.0 [facility] Comment on above: Performed By: #### 3 274-8, CBCA, CMP ####[facility] ([id number])[address], [address] [address] CBC auto differentialon 11-29 Basophils (Bld) [#/Vol] 0.1 10*3/uL [facility] Basophils/100 WBC (Bld) 0.3 % [facility] Eosinophils (Bld) [#/Vol] 0.1 10*3/uL [facility] Eosinophils/100 WBC (Bld) 0.5 % [facility] Erythrocyte distribution width (RBC) [Ratio] 18.1 % High 11.5 - 15.0 % [facility] Hematocrit (Bld) [Volume fraction] 24.4 % Low 35 - 47 % [facility] Hemoglobin (Bld) [Mass/Vol] 7.9 g/dL Low 11.7 - 15.5 g/dL [facility] Interpretation and review of laboratory results Abnormal [facility] Lymphocytes (Bld) [#/Vol] 1.8 10*3/uL [facility] Lymphocytes/100 WBC (Bld) 10.3 % [facility] MCH (RBC) [Entitic mass] 29.1 pg 27 - 34 pg [facility] MCHC (RBC) [Mass/Vol] 32.5 g/dL [...] [facility] Platelets (Bld) [#/Vol] 211 10*3/uL [facility] RBC (Bld) [#/Vol] 2.72 10*6/uL Low [facility] WBC corrected for nucl RBC Auto (Bld) [#/Vol] 17.9 High [facility] COMPREHENSIVE METABOLIC PANE Elver 12-24-2023 Albumin [Mass/Vol] 2.3 g/dL Low 3.2-5.3 [facility] Comment on above: Performed By: #### 3 274-8, CBCA, CMP ####[facility] ([id number])[address], [address] [place] [address] ALP [Catalytic activity/Vol] 198 U/L High 39-130 [facility] Comment on above: Performed By: #### 3 274-8, CBCA, CMP ####[facility] ([id number])[address], [address] [place] [address] ALT [Catalytic activity/Vol] 18 U/L Normal 0-31 [facility] Comment on above: Performed By: #### 3 274-8, CBCA, CMP ####[facility] ([id number])[address], [address] [place] [address] Anion gap [Moles/Vol] 10 mmol/L Normal 5-15 [facility] Comment on above: Performed By: #### 3 274-8, CBCA, CMP ####[facility] ([id number])[address], [address], [place] [address] AST [Catalytic activity/Vol] 23 U/L Normal 0-41 [facility] Comment on above: Performed By: #### 3 274-8, CBCA, CMP ####[facility] ([id number])[address], [address], [place] [address] Bilirubin [Mass/Vol] 0.5 mg/dL Normal 0.3-1.2 [facility] Comment on above: Performed By: #### 3 274-8, CBCA, CMP ####[facility] ([id number])[address], [address], [place] [address] Calcium [Mass/Vol] 6.8 mg/dL Critically low 8.5-10.5 [facility] Comment on above: Performed By: #### 3 274-8, CBCA, CMP ####[facility] ([id number])[address], [address], [place] [address] Chloride [Moles/Vol] 115 mmol/L High 98-109 [facility] Comment on above: Performed By: #### 3 274-8, CBCA, CMP ####[facility] ([id number])[address], [address], [place] [address] CO2 [Moles/Vol] 19 mmol/L Low 22-32 [facility] Comment on above: Performed By: #### 3 274-8, CBCA, CMP ####[facility] ([id number])[address], [address], [place] [address] Creatinine [Mass/Vol] 1.17 mg/dL High 0.40-1.00 [facility] Comment on above: Result Comment: METH OD TRACEABLE TO IDMS STANDARD Performed By: #### 3 274-8, CBCA, CMP ####[facility] ([id number])[address] [address], [place] [address] GFR/1.73 sq M.predicted among non-blacks MDRD (S/P/Bld) [Vol rate/Area] 51 mL/min/{1.73_m2} Low >59 [facility] Comment on above: Result Comment: Repo rted eGFR is based on theCKD-EPI 2020 equation that doesnot use a race coefficient. Performed By: #### 3 274-8, CBCA, CMP ####[facility] ([id number])[address] [address], [place] [address] Glucose [Mass/Vol] 99 mg/dL Normal 65-99 [facility] Comment on above: Performed By: #### 3 274-8, CBCA, CMP ####[facility] ([id number])[address] [address], [place] [address] Potassium [Moles/Vol] 4.0 mmol/L Normal 3.5-5.0 [facility] Comment on above: Performed By: #### 3 274-8, CBCA, CMP ####[facility] ([id number])[address] [address], [place] [address] Protein [Mass/Vol] 6.0 g/dL Normal 6.0-8.0 [facility] Comment on above: Performed By: #### 3 274-8, CBCA, CMP ####[facility] ([id number])[address] [address], [place] [address] Sodium [Moles/Vol] 144 mmol/L Normal 134-146 [facility] Comment on above: Performed By: #### 3 274-8, CBCA, CMP ####[facility] ([id number])[address] [address], [place] [address] Urea nitrogen [Mass/Vol] 27 mg/dL Normal 5-27 [facility] Comment on above: Performed By: #### 3 274-8, CBCA, CMP ####[facility] ([id number])[address] [facility], [address] [place] [address] Calcium.ionized (Bld) [Mass/ Vol]on 12-24-2023 IONIZED CALCIUM 4.2 mg/dL Low 4.5-5.3 [facility] Comment on above: Performed By: #### 3 8230-9 ####[facility] ([id number])[address] [facility], [address] [place] [address] Interpretation and review of laboratory results Abnormal [facility] Comprehensive metabolic pane elver 12-24-2023 Albumin [Mass/Vol] [...] 0.5 mg/dL 0.3 - 1.2 mg/dL [facility] Calcium [Mass/Vol] 6.8 mg/dL Critically low 8.5 - 1 0.5 mg/dL [facility] Chloride [Moles/Vol] 115 mmol/L High 98 - 109 mmol/L [facility] CO2 [Moles/Vol] 19 mmol/L Low 22 - [...] [Mass/Vol] 27 mg/dL 5 - 27 mg/dL [facility] ECG 12 leadon 12-24-2023 TRACEMASTERVUE [facility] Hemoglobin and hematocrit, b loodon 12-24-2023 Hematocrit (Bld) [Volume fraction] 22.2 % Low 35 - 47 % [facility] Hemoglobin (Bld) [Mass/Vol] 7.1 g/dL Low 11.7 - 15.5 g/dL [facility] Interpretation and review of laboratory results Abnormal [facility] Heparin unfractionated Chrom ogenic method Qn (PPP)on 12-24-2023 ANTI XA UFH 0.42 IU/mL Normal 0.30-0.70 [facility] Comment on above: Result Comment: Opti mal time for testing is 6 hrs post dosageThis test is specific for monitoring patientson UFH, and is not recommended for use withother Anti-Xa medications. Performed By: #### 3 274-8, CBCA, CMP ####[facility] ([id number])[address] [facility], [address] [place] [address] Ionized calciumon 12-24-2023 Calcium.ionized (Bld) [Mass/Vol] 4.2 mg/dL Low 4.5 - 5.3 mg/dL [facility] Anti XA unfractionated hepar inon 12-23-2023 Heparin unfractionated Chromogenic method Qn (PPP) 0.31 [facility] Heparin unfractionated Chromogenic method Qn (PPP) 0.42 [facility] Blood gas, venouson 12-23-19 24 Arterial patency Wrist artery --pre arterial puncture [facility] Base deficit (Bld) [Moles/Vol] 5.0 mmol/L High [facility] CO2 (BldV) [Partial pressure] 26.9 mm[Hg] Low [facility] HCO3 (Bld) [Moles/Vol] 18.1 mmol/L Low [facility] Interpretation and review of laboratory results Abnormal [facility] Oxygen (BldV) [Partial pressure] 29 mm[Hg] Low [facility] Oxygen therapy source and amount [CARE] NC [facility] Oxygen/Inspired gas setting [Volume Fraction] Ventilator 28 % [facility] pH (BldV) 7.437 [pH] High 7.320 - 7.420 [facility] SaO2% Calculated from oxygen partial pressure (BldV) [Mass fraction] 58.0 % Low 80.0 - PINF % [facility] Specimen site Narrative N/A [facility] Specimen type Nom (Spec) VENOUS [facility] CBC AND AUTO DIFFon 12-23-19 ABSOLUTE BASOPHIL 0.0 X10E9/L Normal 0.0-0.2 [facility] Comment on above: Performed By: #### C TOO SHEA, , 47904-7 ####[facility] ([id number])[address], [address], [place] [address] ABSOLUTE NEUTROPHIL 12.7 X10E9/L High 1.5-6.6 [facility] Comment on above: Performed By: #### Dru SHEA CMP, , 61550-0 ####[facility] ([id number])[address], [address], [place] [address] Basophils/100 WBC (Bld) 0.3 % Normal [facility] Comment on above: Performed By: #### Dru SHEA CMP, , 74204-4 ####[facility] ([id number])[address], [address] [place] [address] Eosinophils (Bld) [#/Vol] 0.0 10*3/uL Normal 0.0-0.4 [facility] Comment on above: Performed By: #### Dru SHEA CMP, , 68717-5 ####[facility] ([id number])[address], [address], [place] [address] Eosinophils/100 WBC (Bld) 0.3 % Normal [facility] Comment on above: Performed By: #### C BCA, CMP, , 11161-2 ####[facility] ([id number])[address], [address], [place] [address] Erythrocyte distribution width (RBC) [Ratio] 18.6 % High 11.5-15.0 [facility] Comment on above: Performed By: #### C BCA, CMP, , 64552-5 ####[facility] ([id number])[address], [address], [place] [address] Hematocrit (Bld) [Volume fraction] 25.4 % Low 35-47 [facility] Comment on above: Performed By: #### C BCA, CMP, , 92355-4 ####[facility] ([id number])[address] [address], [place] [address] Hemoglobin (Bld) [Mass/Vol] 8.2 g/dL Low 11.7-15.5 [facility] Comment on above: Performed By: #### C BCA, CMP, , 85525-5 ####[facility] ([id number])[address] [address], [place] [address] Lymphocytes (Bld) [#/Vol] 0.8 10*3/uL Low 1.0-3.5 [facility] Comment on above: Performed By: #### C BCA, CMP, , 40382-3 ####[facility] ([id number])[address] [address], [place] [address] Lymphocytes/100 WBC (Bld) 6.0 % Normal [facility] Comment on above: Performed By: #### C BCA, CMP, , 42141-3 ####[facility] ([id number])[address], [address], [place] [address] MCH (RBC) [Entitic mass] 29.1 pg Normal 27-34 [facility] Comment on above: Performed By: #### C BCA, CMP, , 16066-9 ####[facility] ([id number])[address], [address], [place] [address] MCHC (RBC) [Mass/Vol] 32.2 g/dL Normal 32-36 [facility] Comment on above: Performed By: #### C BCA, CMP, , 54286-8 ####[facility] ([id number])[address], [address], [place] [address] MCV (RBC) [Entitic vol] 90 fL Normal 80-100 [facility] Comment on above: Performed By: #### C BCA, CMP, , 41083-9 ####[facility] ([id number])[address] [address], [place] [address] Monocytes (Bld) [#/Vol] 0.3 10*3/uL Normal 0-0.9 [facility] Comment on above: Performed By: #### C BCA, CMP, , 81348-7 ####[facility] ([id number])[address] [address], [place] [address] Monocytes/100 WBC (Bld) 2.0 % Normal [facility] Comment on above: Performed By: #### C BCA, CMP, , 66664-2 ####[facility] ([id number])[address], [address], [place] [address] Neutrophils/100 WBC (Bld) 91.4 % Normal [facility] Comment on above: Performed By: #### C BCA, CMP, , 44575-8 ####[facility] ([id number])[address] [address] Platelet mean volume (Bld) [Entitic vol] 9.3 fL Normal 7-12 [facility] Comment on above: Performed By: #### C BCA, CMP, , 67773-0 ####[facility] ([id number])[address] [address] Platelets (Bld) [#/Vol] 176 10*3/uL Normal 150-450 [facility] Comment on above: Performed By: #### C BCA, CMP, , 71259-2 ####[facility] ([id number])[address] [address] RBC COUNT 2.81 X10E12/L Low 3.80-5.20 [facility] Comment on above: Performed By: #### C BCA, CMP, , 00056-7 ####[facility] ([id number])[address] [address] WBC (Bld) [#/Vol] 13.9 10*3/uL High 4.0-11.0 [facility] Comment on above: Performed By: #### Dru BCA, CMP, , 26682-7 ####[facility] ([id number])[address] [address] CBC auto differentialon 11-29 Basophils (Bld) [#/Vol] 0.0 10*3/uL [facility] Basophils/100 WBC (Bld) 0.3 % [facility] Eosinophils (Bld) [#/Vol] 0.0 10*3/uL [facility] Eosinophils/100 WBC (Bld) 0.3 % [facility] Erythrocyte distribution width (RBC) [Ratio] 18.6 % High 11.5 - 15.0 % [facility] Hematocrit (Bld) [Volume fraction] 25.4 % Low 35 - 47 % [facility] Hemoglobin (Bld) [Mass/Vol] 8.2 g/dL Low 11.7 - 15.5 g/dL [facility] Interpretation and review of laboratory results Abnormal [facility] Lymphocytes (Bld) [#/Vol] 0.8 10*3/uL Low [facility] Lymphocytes/100 WBC (Bld) 6.0 % [facility] MCH (RBC) [Entitic mass] 29.1 pg 27 - 34 pg [facility] (RBC) [Mass/Vol] 32.2 g/dL 32 - 36 g/dL [facility] MCV (RBC) [Entitic vol] 90 fL 80 - 100 fL [facility] Monocytes (Bld) [#/Vol] 0.3 10*3/uL [facility] Monocytes/100 WBC (Bld) 2.0 % [facility] Neutrophils (Bld) [#/Vol] 12.7 10*3/uL High [facility] Neutrophils/100 WBC (Bld) 91.4 % [facility] Platelet mean volume (Bld) [Entitic vol] 9.3 fL 7 - 12 fL [facility] Platelets (Bld) [#/Vol] 176 10*3/uL [facility] RBC (Bld) [#/Vol] 2.81 10*6/uL Low [facility] WBC corrected for nucl RBC Auto (Bld) [#/Vol] 13.9 High [facility] COMPREHENSIVE METABOLIC PANE Elver 12-23-2023 Albumin [Mass/Vol] 2.3 g/dL Low 3.2-5.3 [facility] Comment on above: Performed By: #### C BCA, CMP, , 93917-9 ####[facility] ([id number])[address] [facility], [address] [place] [address] ALP [Catalytic activity/Vol] 261 U/L High 39-130 [facility] Comment on above: Performed By: #### C BCA, CMP, , 53891-7 ####[facility] ([id number])[address], [address], [place] [address] ALT [Catalytic activity/Vol] 23 U/L Normal 0-31 [facility] Comment on above: Performed By: #### C BCA, CMP, , 65532-3 ####[facility] ([id number])[address], [address], [place] [address] Anion gap [Moles/Vol] 9 mmol/L Normal 5-15 [facility] Comment on above: Performed By: #### C BCA, CMP, , 97186-6 ####[facility] ([id number])[address], [address], [place] [address] AST [Catalytic activity/Vol] 33 U/L Normal 0-41 [facility] Comment on above: Performed By: #### C BCA, CMP, , 14294-7 ####[facility] ([id number])[address], [address], [place] [address] Bilirubin [Mass/Vol] 0.5 mg/dL Normal 0.3-1.2 [facility] Comment on above: Performed By: #### C BCA, CMP, , 58325-6 ####[facility] ([id number])[address], [address], [place] [address] Calcium [Mass/Vol] 7.1 mg/dL Low 8.5-10.5 [facility] Comment on above: Performed By: #### C BCA, CMP, , 33903-6 ####[facility] ([id number])[address], [address], [place] [address] Chloride [Moles/Vol] 111 mmol/L High 98-109 [facility] Comment on above: Performed By: #### C BCA, CMP, , 20075-5 ####[facility] ([id number])[address], [address], [place] [address] CO2 [Moles/Vol] 22 mmol/L Normal 22-32 [facility] Comment on above: Performed By: #### C BCA, CMP, , 36544-5 ####[facility] ([id number])[address], [address], [place] [address] Creatinine [Mass/Vol] 1.17 mg/dL High 0.40-1.00 [facility] Comment on above: Result Comment: METH OD TRACEABLE TO IDMS STANDARD Performed By: #### C TOO SHEA, , 76073-8 ####[facility] ([id number])[address] [address] [place] [address] GFR/1.73 sq M.predicted among non-blacks MDRD (S/P/Bld) [Vol rate/Area] 51 mL/min/{1.73_m2} Low >59 [facility] Comment on above: Result Comment: Repo rted eGFR is based on theCKD-EPI 2020 equation that doesnot use a race coefficient. Performed By: #### C BCA, CMP, , 16611-7 ####[facility] ([id number])[address] [address] [address] Glucose [Mass/Vol] 79 mg/dL Normal 65-99 [facility] Comment on above: Performed By: #### C BCA, CMP, , 38398-4 ####[facility] ([id number])[address] [address], [place] [address] Potassium [Moles/Vol] 4.5 mmol/L Normal 3.5-5.0 [facility] Comment on above: Performed By: #### C BCA, CMP, , 17805-1 ####[facility] ([id number])[address], [address] [place] [address] Protein [Mass/Vol] 6.2 g/dL Normal 6.0-8.0 [facility] Comment on above: Performed By: #### C BCA, CMP, 12572-0, 84784-4 ####[facility] ([id number])[address], [address] [place] [address] Sodium [Moles/Vol] 142 mmol/L Normal 134-146 [facility] Comment on above: Performed By: #### C BCA, CMP, , 23320-2 ####[facility] ([id number])[address] [address] Urea nitrogen [Mass/Vol] 25 mg/dL Normal 5-27 [facility] Comment on above: Performed By: #### C BCA, CMP, , 92110-6 ####[facility] ([id number])[address], [address] [address] Comprehensive metabolic pane elver 12-23-2023 Albumin [Mass/Vol] [...] [Moles/Vol] 22 mmol/L 22 - 32 mmol/L [facility] Creatinine [Mass/Vol] 1.17 mg/dL High 0.40 - 1.00 mg/dL [facility] eGFR (CKD-EPI)non-race dependent 51 Low - PINF [facility] Glucose [Mass/Vol] 79 mg/dL 65 - 99 mg/dL [facility] Interpretation and review of laboratory results Abnormal [facility] Potassium [Moles/Vol] 4.5 mmol/L 3.5 - 5.0 mmol/L [facility] Protein [Mass/Vol] 6.2 g/dL 6.0 - 8.0 g/dL [facility] Sodium [Moles/Vol] 142 mmol/L 134 - 146 mmol/L [facility] Urea nitrogen [Mass/Vol] 25 mg/dL 5 - 27 mg/dL [facility] ECG 12 leadon 12-23-2023 TRACEMASTERVUE [facility] FECAL OCCULT BLOODon 024 Hemoglobin.gastroi ntestinal Ql (Stl) Negative Normal NEG [facility] Comment on above: Performed By: #### 2 335-8 ####[facility] ([id number])[address], [address] [place] [address] GLUCOSEon 12-23-2023 Glucose [Mass/Vol] 97 mg/dL Normal 65-99 [facility] Comment on above: Performed By: #### 1 0839-9, 2345-7 ####[facility] ([id number])[address], [address] [place] [address] Glucose Glucometer (BldC) [M ass/Vol]on 12-23-2023 Glucose [Mass/Vol] 104 mg/dL High 65-99 [facility] Glucose [Mass/Vol] 104 mg/dL High 65 - 99 mg/dL [facility] Interpretation and review of laboratory results Abnormal [facility] Glucose [Mass/Vol] 116 mg/dL High 65-99 [facility] Glucose [Mass/Vol] 116 mg/dL High 65 - 99 mg/dL [facility] Interpretation and review of laboratory results Abnormal [facility] Glucose [Mass/Vol] 88 mg/dL Normal 65-99 [facility] Glucose [Mass/Vol] 104 mg/dL High 65-99 [facility] Glucose [Mass/Vol] 88 mg/dL 65 - 99 mg/dL [facility] Glucose [Mass/Vol] 104 mg/dL High 65 - 99 mg/dL [facility] Interpretation and review of laboratory results Abnormal [facility] Glucose [Mass/Vol] 98 mg/dL Normal 65-99 [facility] Glucose [Mass/Vol] 98 mg/dL 65 - 99 mg/dL [facility] Glucose [Mass/Vol] 79 mg/dL Normal 65-99 [facility] Glucose [Mass/Vol] 79 mg/dL 65 - 99 mg/dL [facility] Glucose [Mass/Vol]on [facility] Glucose random or fastingon 12-23-2023 Glucose [Mass/Vol] 97 mg/dL 65 - 99 mg/dL [facility] HGB AND HCTon 12-23-2023 Hematocrit (Bld) [Volume fraction] 24.5 % Low 35-47 [facility] Comment on above: Performed By: #### H H ####[facility] ([id number])[address], [address] [place] [address] Hemoglobin (Bld) [Mass/Vol] 8.1 g/dL Low 11.7-15.5 [facility] Comment on above: Performed By: #### H H ####[facility] ([id number])[address], [address], [place] [address] Hematocrit (Bld) [Volume fraction] 22.5 % Low 35-47 [facility] Comment on above: Performed By: #### H H ####[facility] ([id number])[address], [address], [place] [address] Hemoglobin (Bld) [Mass/Vol] 7.3 g/dL Low 11.7-15.5 [facility] Comment on above: Performed By: #### H H ####[facility] ([id number])[address], [address] [place] [address] Hemoglobin and hematocrit, b loodon 12-23-2023 Hematocrit (Bld) [Volume fraction] 24.5 % Low 35 - 47 % [facility] Hemoglobin (Bld) [Mass/Vol] 8.1 g/dL Low 11.7 - 15.5 g/dL [facility] Interpretation and review of laboratory results Abnormal [facility] Hematocrit (Bld) [Volume fraction] 22.5 % Low 35 - 47 % [facility] Hemoglobin (Bld) [Mass/Vol] 7.3 g/dL Low 11.7 - 15.5 g/dL [facility] Interpretation and review of laboratory results Abnormal [facility] Hemoglobin.gastrointestinal Ql (Stl)on 12-23-2023 [facility] Heparin unfractionated Chrom ogenic method Qn (PPP)on 12-23-2023 ANTI XA UFH 0.31 IU/mL Normal 0.30-0.70 [facility] Comment on above: Result Comment: Opti mal time for testing is 6 hrs post dosageThis test is specific for monitoring patientson UFH, and is not recommended for use withother Anti-Xa medications. Performed By: #### 3 274-8 ####[facility] ([id number])[address], [address] [place] [address] [facility] ANTI XA UFH 0.42 IU/mL Normal 0.30-0.70 [facility] Comment on above: Result Comment: Opti mal time for testing is 6 hrs post dosageThis test is specific for monitoring patientson UFH, and is not recommended for use withother Anti-Xa medications. Performed By: #### 3 274-8 ####[facility] ([id number])[address], [address] [place] [address] [facility] MAGNESIUMon 12-23-2023 Magnesium [Mass/Vol] 1.9 mg/dL Normal 1.8-2.6 [facility] Comment on above: Performed By: #### C BCA, CMP, 94457-8, 75434-8 ####[facility] ([id number])[address], [address] [place] [address] Magnesiumon 12-23-2023 Magnesium [Mass/Vol] 1.9 mg/dL 1.8 - 2.6 mg/dL [facility] No Panel Informationon 12-22 [facility] Occult blood x 1, stoolon Hemoglobin.gastroi ntestinal Ql (Stl) Negative Negative^Ne gative [facility] TROPONIN Ion 12-23-2023 Troponin I.cardiac [Mass/Vol] 0.33 ng/mL High 0.00-0.04 [facility] Comment on above: Result Comment: Conc entrations greater than or equalto 0.05 ng/ml are considered elevated.Elevations of Troponin may be due to causesother than myocardial ischemia. Recommendserial Troponin testing be performed. Performed By: #### 1 0839-9, 2345-7 ####[facility] ([id number])[address], [address] [place] [address] Troponin I.cardiac [Mass/Vol] 0.34 ng/mL High 0.00-0.04 [facility] Comment on above: Result Comment: Conc entrations greater than or equalto 0.05 ng/ml are considered elevated.Elevations of Troponin may be due to causesother than myocardial ischemia. Recommendserial Troponin testing be performed. Performed By: #### 1 0839-9 ####[facility] ([id number])[address], [address] [place] [address] Troponin I.cardiac [Mass/Vol] 0.58 ng/mL Critically high 0.00-0.04 [facility] Comment on above: Result Comment: Conc entrations greater than or equalto 0.05 ng/ml are considered elevated.Elevations of Troponin may be due to causesother than myocardial ischemia. Recommendserial Troponin testing be performed. Performed By: #### C BCA, [facility], 99909-7, 84970-4 ####[facility] ([id number])[address] [facility], [address] [place] [address] Troponin Ion 12-23-2023 Troponin I.cardiac [Mass/Vol] 0.33 ng/mL High 0.00 - 0.04 ng/mL [facility] Troponin I.cardiac [Mass/Vol] 0.34 ng/mL High 0.00 - 0.04 ng/mL [facility] Troponin I.cardiac [Mass/Vol] 0.58 ng/mL Critically high 0.00 - 0.04 ng/mL [facility] Troponin I.cardiac [Mass/Vol ]on 12-23-2023 Interpretation and review of laboratory results Abnormal [facility] Interpretation and review of laboratory results Abnormal [facility] Interpretation and review of laboratory results Abnormal [facility] Type and screenon 12-23-2023 ABO O [facility] Rh Nom (Bld) Positive [facility] US.doppler Lower extremity v ein - bilateralon 12-23-2023 PM CARDIOVASCULAR [facility] Radiology Study observation (narrative) [facility].doppler Lower extremity v ein - bilateralOrdered By: Liban Prakash on 12-23-2023 [facility] Work Phone: VENOUS BLOOD GASon RONNIE'S TEST Normal [facility] Comment on above: Performed By: #### V BG ####[facility] ([id number])[address] [place] [address] BASE,DEFICIT 5.0 MMOL/L High 0.0-2.0 [facility] Comment on above: Performed By: #### V BG ####[facility] ([id number])[address] [place] [address] Body temperature 98.6 [degF] Normal 37.0 [facility] Comment on above: Performed By: #### V BG ####[facility] ([id number])[address] [place] [address] HCO3 (Bld) [Moles/Vol] 18.1 mmol/L Low 20.0-24.0 [facility] Comment on above: Performed By: #### V BG ####[facility] ([id number])[address] [place] [address] INSP. O2 CONC. 28 % Normal [facility] Comment on above: Performed By: #### V BG ####[facility] ([id number])[address] [place] [address] Oxygen saturation in Blood 58.0 % Low >80.0 [facility] Comment on above: Performed By: #### V BG ####[facility] ([id number])[address] [place] [address] OXYGEN SOURCE NC Normal [facility] Comment on above: Performed By: #### V BG ####[facility] ([id number])[address] [place] [address] PCO2, VENOUS 26.9 MMHG Low 35-50 [facility] Comment on above: Performed By: #### V BG ####[facility] ([id number])[address] [place] [address] PH, VENOUS 7.437 High 7.320-7.420 [facility] Comment on above: Performed By: #### V BG ####[facility] ([id number])[address] [place] [address] PO2, VENOUS 29 MMHG Low 30-50 [facility] Comment on above: Performed By: #### V BG ####[facility] ([id number])[address] [place] [address] SAMPLE SITE N/A Normal [facility] Comment on above: Performed By: #### V BG ####[facility] ([id number])[address] [place] [address] SAMPLE TYPE VENOUS Normal [facility] Comment on above: Performed By: #### V BG ####[facility] ([id number])[address] [place] [address] XR CHEST 1 VWon 12-23-2023 XR CHEST 1 VW Normal [facility] XR Chest Single viewon 12-22 SECTRAPACS [facility] Radiology Study observation (narrative) [facility] XR Chest Single viewOrdered By: Yany Vargas on 12-23-2023 [facility] Work Phone: ADD ON Urinalysis (if urine dip already complete)on 12-22-2023 Interpretation and review of laboratory results Abnormal [facility] Mucus Ql (Urine sed) PRESENT Abnormal NONE^NONE [facility] RBC Auto (Urine sed) [#/Area] 3 [facility] WBC Auto (Urine sed) [#/Area] 40 High [facility] APTTon 12-22-2023 aPTT Coag (PPP) [Time] Critically high [facility] BASIC METABOLIC PANELon 11-29 Anion gap [Moles/Vol] 14 mmol/L Normal 7-20 [facility] Comment on above: Performed By: #### L [id number] #### [facility] ([facility]AKER) [address] [place] [address] Calcium [Mass/Vol] 7.7 mg/dL Low 8.6-10.3 [facility] Comment on above: Performed By: #### L [id number] #### [facility] ([facility]) [address] [place] [address] Chloride [Moles/Vol] 103 mmol/L Normal 98-107 [facility] Comment on above: Performed By: #### L [id number] #### [facility] ([facility]) [address] [place] [address] CO2 [Moles/Vol] 24 mmol/L Normal 21-31 [facility] Comment on above: Performed By: #### L [id number] #### [facility] ([facility]) [address] [place] [address] Creatinine [Mass/Vol] 1.33 mg/dL High 0.60-1.20 [facility] Comment on above: Performed By: #### L [id number] #### [facility] ([facility]) [address] [place] [address] GLOMERULAR FILTRATION RATE ML/MIN/1.73 SQ M.PREDICTED 44.1 mL/min/1.73m*2 Low >60.0 [facility] Comment on above: Result Comment: [facility]???s estimated glomerular filtration rate (eGFR) will no [...] individuals. Performed By: #### L [id number] #### [facility] ([facility]) [address] [place] [address] Glucose [Mass/Vol] 113 mg/dL High 70-100 [facility] Comment on above: Performed By: #### L [id number] #### [facility] ([facility]ER) [address] [place] [address] Potassium [Moles/Vol] 4.4 mmol/L Normal 3.5-5.1 [facility] Comment on above: Performed By: #### L [id number] #### [facility] [address] [place] [address] Sodium [Moles/Vol] 137 mmol/L Normal 136-145 [facility] Comment on above: Performed By: #### L [id number] #### [facility] [address] [place] [address] Urea nitrogen [Mass/Vol] 29 mg/dL High 7-25 [facility] Comment on above: Performed By: #### L [id number] #### [facility] ([facility]) [address] [place] [address] UREA NITROGEN/CREATININ E (MASS RATIO) IN SER/PLAS 21.8 Normal [facility] Comment on above: Performed By: #### L [id number] #### [facility] ([facility]) [address] [place] [address] BASIC METABOLIC PANLon 12-21 Anion gap [Moles/Vol] 13 mmol/L Normal 5-15 [facility] Comment on above: Performed By: #### C BCA, 55313-4, BMP, 3040-3, LIVR, 63058-0, 02908-8, 6-4 ####[facility] ([id number])[address] [place] [address] Calcium [Mass/Vol] 7.8 mg/dL Low 8.5-10.5 [facility] Comment on above: Performed By: #### C BCA, 94006-6, BMP, 3040-3, LIVR, 92817-6, 99970-1, 2276-4 ####[facility] ([id number])[address], [place] [address] Chloride [Moles/Vol] 105 mmol/L Normal 98-109 [facility] Comment on above: Performed By: #### C BCA, 50882-9, BMP, 3040-3, LIVR, 16327-3, 37069-9, 2276-4 ####[facility] ([id number])[address], [address] [address] CO2 [Moles/Vol] 24 mmol/L Normal 22-32 [facility] Comment on above: Performed By: #### C BCA, 27712-0, BMP, 3040-3, LIVR, 78350-2, 57160-6, 6-4 ####[facility] ([id number])[address], [address], [place] [address] Creatinine [Mass/Vol] 1.38 mg/dL High 0.40-1.00 [facility] Comment on above: Result Comment: METH OD TRACEABLE TO IDMS STANDARD Performed By: #### C BCA, 52302-7, BMP, 3040-3, LIVR, 55448-5, 86794-9, 6-4 ####[facility] ([id number])[address], [address], [place] [address] GFR/1.73 sq M.predicted among non-blacks MDRD (S/P/Bld) [Vol rate/Area] 42 mL/min/{1.73_m2} Low >59 [facility] Comment on above: Result Comment: Repo rted eGFR is based on theCKD-EPI 2020 equation that doesnot use a race coefficient. Performed By: #### C BCA, 66885-6, BMP, 3040-3, LIVR, 68165-1, 97002-5, 6-4 ####[facility] ([id number])[address], [address] [address] Glucose [Mass/Vol] 42 mg/dL Critically low 65-99 [facility] Comment on above: Performed By: #### C BCA, 70449-8, BMP, 3040-3, LIVR, 42178-6, 76977-4, 2276-4 ####[facility] ([id number])[address], [address] [place] [address] Potassium [Moles/Vol] 4.5 mmol/L Normal 3.5-5.0 [facility] Comment on above: Performed By: #### C BCA, 91527-1, BMP, 3040-3, LIVR, 90535-3, 28211-3, 6-4 ####[facility] ([id number])[address], [address] [place] [address] Sodium [Moles/Vol] 142 mmol/L Normal 134-146 [facility] Comment on above: Performed By: #### C BCA, 42190-3, BMP, 3040-3, LIVR, 80766-3, 73706-4, 6-4 ####[facility] ([id number])[address], [address] [place] [address] Urea nitrogen [Mass/Vol] 32 mg/dL High 5-27 [facility] Comment on above: Performed By: #### C BCA, 96688-4, BMP, 3040-3, LIVR, 33519-4, 58083-5, 6-4 ####[facility] ([id number])[address], [address] [place] [address] BLOOD CULTUREon 12-22-2023 Bacteria identified Aer cx Nom (Bld) CULTURE RESULTS NO GROWTH 5 DAYS Normal [facility] Basic Metabolic Panelon 11-29 Anion gap [Moles/Vol] 13 mmol/L 5 - 15 mmol/L [facility] Calcium [Mass/Vol] 7.8 mg/dL Low 8.5 - 10. 5 mg/dL [facility] Chloride [Moles/Vol] 105 mmol/L 98 - 109 mmol/L [facility] CO2 [Moles/Vol] 24 mmol/L 22 - 32 mmol/L [facility] Creatinine [Mass/Vol] 1.38 mg/dL High 0.40 - 1.00 mg/dL [facility] eGFR (CKD-EPI)non-race dependent 42 Low - PINF [facility] Glucose [Mass/Vol] 42 mg/dL Critically low 65 - 99 mg/dL [facility] Interpretation and review of laboratory results Abnormal [facility] Potassium [Moles/Vol] 4.5 mmol/L 3.5 - 5.0 mmol/L [facility] Sodium [Moles/Vol] 142 mmol/L 134 - 146 mmol/L [facility] Urea nitrogen [Mass/Vol] 32 mg/dL High 5 - 27 mg/dL [facility] CBCon 12-22-2023 Erythrocyte distribution width (RBC) [Ratio] 17.2 % High 11.5-15.0 [facility] Comment on above: Performed By: #### L [id number] #### [facility] ([facility]) [address] [place] [address] ERYTHROCYTE MEAN CORPUSCULAR HEMOGLOBIN CONCENTRATION (G/DL) BY AUTOMATED 31.2 g/dL Low 32.0-35.0 [facility] Comment on above: Performed By: #### L [id number] #### [facility] ([facility]) [address] [place] [address] Hematocrit (Bld) [Volume fraction] 26.9 % Low 36.0-48.0 [facility] Comment on above: Performed By: #### L [id number] #### [facility] ([facility]) [address] [place] [address] Hemoglobin (Bld) [Mass/Vol] 8.4 g/dL Low 12.0-15.0 [facility] Comment on above: Performed By: #### L [id number] #### [facility] ([facility]) [address] [place] [address] MCH (RBC) [Entitic mass] 28.9 pg Normal 27.0-33.0 [facility] Comment on above: Performed By: #### L [id number] #### [facility] ([facility]) [address] [place] [address] MCV (RBC) [Entitic vol] 92.4 fL Normal 82.0-98.0 [facility] Comment on above: Performed By: #### L [id number] #### [facility] ([facility]) [address] [place] [address] PLATELETS (10*3/UL) IN BLOOD AUTOMATED COUNT 200 10*3/uL Normal 150-400 [facility] Comment on above: Performed By: #### L [id number] #### [facility] ([facility]) [address] [place] [address] RBC (Bld) [#/Vol] 2.91 10*6/uL Low 3.80-5.00 [facility] Comment on above: Performed By: #### L [id number] #### [facility] ([facility]) [address] [place] [address] WBC (Bld) [#/Vol] 15.86 10*3/uL High 4.00-10.60 [facility] Comment on above: Performed By: #### L [id number] #### [facility] ([facility]) [address] [place] [address] CBC AND AUTO DIFFon 24-20 24 ABSOLUTE BASOPHIL 0.0 X10E9/L Normal 0.0-0.2 [facility] Comment on above: Performed By: #### C BCA, 82901-3, BMP, 3040-3, LIVR, 76045-8, 45713-9, 2276-4 ####[facility] ([id number])[address] [facility], [address] [address] ABSOLUTE NEUTROPHIL 12.8 X10E9/L High 1.5-6.6 [facility] Comment on above: Performed By: #### C BCA, 77798-8, BMP, 3040-3, LIVR, 22282-1, 56541-0, 2276-4 ####[facility] ([id number])[address] [address] [place] [address] Basophils/100 WBC (Bld) 0.2 % Normal [facility] Comment on above: Performed By: #### C BCA, 68303-7, BMP, 3040-3, LIVR, 68268-5, 78261-9, 2275-4 ####[facility] ([id number])[address] [address] [place] [address] Eosinophils (Bld) [#/Vol] 0.2 10*3/uL Normal 0.0-0.4 [facility] Comment on above: Performed By: #### C BCA, 94764-5, BMP, 3040-3, LIVR, 01952-3, , 2275-4 ####[facility] ([id number])[address] [address] Eosinophils/100 WBC (Bld) 1.3 % Normal [facility] Comment on above: Performed By: #### C BCA, 89789-3, BMP, 3040-3, LIVR, 71936-0, 26129-9, 2275-4 ####[facility] ([id number])[address] [address] Erythrocyte distribution width (RBC) [Ratio] 18.3 % High 11.5-15.0 [facility] Comment on above: Performed By: #### C BCA, 51974-3, BMP, 3040-3, LIVR, 49952-4, 18990-2, 2275-4 ####[facility] ([id number])[address] [address] Hematocrit (Bld) [Volume fraction] 24.3 % Low 35-47 [facility] Comment on above: Performed By: #### C BCA, 14718-9, BMP, 3040-3, LIVR, 49960-3, 84087-5, 6-4 ####[facility] ([id number])[address], [address] [place] [address] Hemoglobin (Bld) [Mass/Vol] 8.1 g/dL Low 11.7-15.5 [facility] Comment on above: Performed By: #### C BCA, 63091-7, BMP, 3040-3, LIVR, 43656-5, 58387-7, 6-4 ####[facility] ([id number])[address] [address] [place] [address] Lymphocytes (Bld) [#/Vol] 1.5 10*3/uL Normal 1.0-3.5 [facility] Comment on above: Performed By: #### C BCA, 27938-1, BMP, 3040-3, LIVR, 70011-7, 22659-4, 6-4 ####[facility] ([id number])[address] [address] [place] [address] Lymphocytes/100 WBC (Bld) 9.5 % Normal [facility] Comment on above: Performed By: #### C BCA, 80597-3, BMP, 3040-3, LIVR, 95501-4, 22845-3, 6-4 ####[facility] ([id number])[address] [address] [place] [address] MCH (RBC) [Entitic mass] 29.5 pg Normal 27-34 [facility] Comment on above: Performed By: #### C BCA, 92926-3, BMP, 3040-3, LIVR, 98832-5, 54586-1, 6-4 ####[facility] ([id number])[address] [address] [place] [address] MCHC (RBC) [Mass/Vol] 33.4 g/dL Normal 32-36 [facility] Comment on above: Performed By: #### C BCA, 05812-5, BMP, 3040-3, LIVR, 72215-3, 63650-5, 6-4 ####[facility] ([id number])[address], [address] [place] [address] MCV (RBC) [Entitic vol] 88 fL Normal 80-100 [facility] Comment on above: Performed By: #### C BCA, 25115-5, BMP, 3040-3, LIVR, 04991-1, 98614-8, 6-4 ####[facility] ([id number])[address] [address] [place] [address] Monocytes (Bld) [#/Vol] 1.3 10*3/uL High 0-0.9 [facility] Comment on above: Performed By: #### C BCA, 10104-6, BMP, 3040-3, LIVR, 13042-7, 17641-4, 2275-4 ####[facility] ([id number])[address] [address] [place] [address] Monocytes/100 WBC (Bld) 8.4 % Normal [facility] Comment on above: Performed By: #### C BCA, 15376-6, BMP, 3040-3, LIVR, 26920-8, 98564-1, 6-4 ####[facility] ([id number])[address], [address] [place] [address] Neutrophils/100 WBC (Bld) 80.6 % Normal [facility] Comment on above: Performed By: #### C BCA, 06366-6, BMP, 3040-3, LIVR, 80909-7, 97174-4, 2275-4 ####[facility] ([id number])[address], [address] [place] [address] Platelet mean volume (Bld) [Entitic vol] 9.3 fL Normal 7-12 [facility] Comment on above: Performed By: #### C BCA, 87246-0, BMP, 3040-3, LIVR, 34327-4, 16436-7, 2276-4 ####[facility] ([id number])[address], [address] [place] [address] Platelets (Bld) [#/Vol] 197 10*3/uL Normal 150-450 [facility] Comment on above: Performed By: #### C BCA, 21941-7, BMP, 3040-3, LIVR, 29093-9, 47549-7, 6-4 ####[facility] ([id number])[address], [address] [place] [address] RBC COUNT 2.76 X10E12/L Low 3.80-5.20 [facility] Comment on above: Performed By: #### C BCA, 53164-0, BMP, 3040-3, LIVR, 99923-8, 64859-7, 6-4 ####[facility] ([id number])[address], [address] [place] [address] WBC (Bld) [#/Vol] 15.9 10*3/uL High 4.0-11.0 [facility] Comment on above: Performed By: #### C BCA, 57677-3, BMP, 3040-3, LIVR, 33103-1, 40633-8, 6-4 ####[facility] ([id number])[address], [address] [place] [address] CBC auto differentialon 11-29 Basophils (Bld) [#/Vol] 0.0 10*3/uL [facility] Basophils/100 WBC (Bld) 0.2 % [facility] Eosinophils (Bld) [#/Vol] 0.2 10*3/uL [facility] Eosinophils/100 WBC (Bld) 1.3 % [facility] Erythrocyte distribution width (RBC) [Ratio] 18.3 % High 11.5 - 15.0 % [facility] Hematocrit (Bld) [Volume fraction] 24.3 % Low 35 - 47 % [facility] Hemoglobin (Bld) [Mass/Vol] 8.1 g/dL Low 11.7 - 15.5 g/dL [facility] Interpretation and review of laboratory results Abnormal [facility] Lymphocytes (Bld) [#/Vol] 1.5 10*3/uL [facility] Lymphocytes/100 WBC (Bld) 9.5 % [facility] MCH (RBC) [Entitic mass] 29.5 pg 27 - 34 pg [facility] MCHC (RBC) [Mass/Vol] 33.4 g/dL 32 - 36 g/dL [facility] MCV (RBC) [Entitic vol] 88 fL 80 - 100 fL [facility] Monocytes (Bld) [#/Vol] 1.3 10*3/uL High [facility] Monocytes/100 WBC (Bld) 8.4 % [facility] Neutrophils (Bld) [#/Vol] 12.8 10*3/uL High [facility] Neutrophils/100 WBC (Bld) 80.6 % [facility] Platelet mean volume (Bld) [Entitic vol] 9.3 fL 7 - 12 fL [facility] Platelets (Bld) [#/Vol] 197 10*3/uL [facility] RBC (Bld) [#/Vol] 2.76 10*6/uL Low [facility] WBC corrected for nucl RBC Auto (Bld) [#/Vol] 15.9 High [facility] CT ABDOMEN AND PELVIS W CONT on 12-22-2023 CT ABDOMEN AND PELVIS W CONT Normal [facility] CT Abdomen and Pelvis W cont rast Kellee 12-22-2023 SECTRAPACS [facility] Radiology Study observation (narrative) [facility] CT Abdomen and Pelvis W cont rast IVOrdered By: Krystal Crowley on 12-22-2023 [facility] Work Phone: CT CHEST W CONTon 12-22-2023 CT CHEST W CONT Normal [facility] CT Chest limited W contrast Kellee 12-22-2023 SECTRAPACS [facility] Radiology Study observation (narrative) [facility] CT Chest limited W contrast IVOrdered By: Gracie Ontiveros on 12-22-2023 [facility] Work Phone: Creatinine (Bld) [Mass/Vol]o n 12-22-2023 Creatinine [Mass/Vol] 1.4 mg/dL High 0.4-1.0 [facility] Comment on above: Result Comment: METH OD TRACEABLE TO IDMS STANDARD Performed By: #### 3 8483-4 ####[facility] ([id number])[address] [place] [address] GFR/1.73 sq M.predicted among non-blacks MDRD (S/P/Bld) [Vol rate/Area] 41 mL/min/{1.73_m2} Low >59 [facility] Comment on above: Result Comment: Repo rted eGFR is based on theCKD-EPI 2020 equation that doesnot use a race coefficient. Performed By: #### 3 8483-4 ####[facility] ([id number])[address]141 [place] [address] Creatinine [Mass/Vol] 1.4 mg/dL High 0.4 - 1.0 mg/dL [facility] eGFR (CKD-EPI)non-race dependent 41 Low - PINF [facility] Interpretation and review of laboratory results Abnormal [facility] D-Dimeron 12-22-2023 Fibrin D-dimer DDU (PPP) [Mass/Vol] 7716 High NINF [facility] ECG 12 leadOrdered By: Ap Macario on 12-22-2023 [facility] ER Extra Urineon 12-22-2023 Urine collection device ER EXTRA URINE ORDER IN PROCESS [facility] ESR Photometric method (Bld) [Velocity]on 12-22-2023 ESR, ERYTHROCYTE SEDIMENTATION RATE 20 mm/h Normal 0-30 [facility] Comment on above: Performed By: #### 8 2477-1, 71048-1 ####[facility] ([id number])[address], [address] [place] [address] [facility] Erythrocyte Sedimentation Ra te (ESR)on 12-22-2023 ESR Photometric method (Bld) [Velocity] 20 mm/h 0 - 30 mm/h [facility] FERRITINon 12-22-2023 Ferritin [Mass/Vol] 211 ng/mL Normal 11-307 [facility] Comment on above: Performed By: #### C BCA, 76981-2, BMP, 3040-3, LIVR, 17261-5, 23963-0, 2276-4 ####[facility] ([id number])[address], [address] [place] [address] Ferritinon 12-22-2023 Ferritin [Mass/Vol] 211 ng/mL 11 - 307 ng/mL [facility] Ferritin [Mass/Vol]on 2023 [facility] Fibrin D-dimer DDU (PPP) [Ma ss/Vol]on 12-22-2023 D DIMER 7716 ng/mL DDU High <255 [facility] Comment on above: Result Comment: Resu lts >=255ng/mL DDU: Results may beindicative of the presence of VTE. The useof the Wells score and further diagnostictests should be considered. Elevated D-Dimerlevels can also be associated with DIC,neoplasm, , trauma and liver disease.Elevated levels of rheumatoid factor may leadto an overestimation of the D-Dimer level. Performed By: #### 4 8066-5, PINR, 56908-6 ####[facility] ([id number])[address], [address] [place] [address] Glucose Glucometer (BldC) [M ass/Vol]on 12-22-2023 Glucose [Mass/Vol] 81 mg/dL Normal 65-99 [facility] Glucose [Mass/Vol] 40 mg/dL Critically low 65-99 [facility] Glucose [Mass/Vol] 81 mg/dL 65 - 99 mg/dL [facility] Glucose [Mass/Vol] 40 mg/dL Critically low 65 - 99 mg/dL [facility] Interpretation and review of laboratory results Abnormal [facility] Glucose [Mass/Vol] 93 mg/dL Normal 65-99 [facility] Glucose [Mass/Vol] 93 mg/dL 65 - 99 mg/dL [facility] HGB A1C (GLYCO-HGB)on 2023 Glucose [Mass/Vol] 148 mg/dL Normal [facility] Comment on above: Performed By: #### 8 2477-1, 66494-3 ####[facility] ([id number])Counts include 234 beds at the [facility], [address] [place] [address] HbA1c (Bld) [Mass fraction] 6.8 % High 4.4-5.6 [facility] Comment on above: Result Comment: NOTE ADA Guidelines Result HgbA1c Normal : less than 5.7 % Prediabetes : 5.7 % to 6.4 % Diabetes : > 6.4 %Use with caution in patients with abnormal hemoglobin variants asthe half-life of red blood cells and in vivo glycation rates areaffected. Performed By: #### 8 2477-1, 71780-3 ####[facility] ([id number])[address] [facility], [address] [place] [address] Hemoglobin A1con 12-22-2023 Average glucose Estimated from glycated hemoglobin (Bld) [Mass/Vol] 148 mg/dL [facility] HbA1c (Bld) [Mass fraction] 6.8 % High 4.4 - 5.6 % [facility] Interpretation and review of laboratory results Abnormal [facility] LIPASEon 12-22-2023 Lipase [Catalytic activity/Vol] 135 U/L High 11-82 [facility] Comment on above: Performed By: #### C BCA, 07028-5, BMP, 3040-3, LIVR, 77192-2, 93489-1, 6-4 ####[facility] ([id number])[address], [address], [place] [address] LIVER PANELon 12-22-2023 Albumin [Mass/Vol] 2.6 g/dL Low 3.2-5.3 [facility] Comment on above: Performed By: #### C BCA, 38012-1, BMP, 3040-3, LIVR, 16730-8, 16030-1, 6-4 ####[facility] ([id number])[address], [address], [place] [address] ALP [Catalytic activity/Vol] 313 U/L High 39-130 [facility] Comment on above: Performed By: #### C BCA, 79474-9, BMP, 3040-3, LIVR, 29073-2, 44275-9, 6-4 ####[facility] ([id number])[address], [address], [place] [address] ALT [Catalytic activity/Vol] 28 U/L Normal 0-31 [facility] Comment on above: Performed By: #### C BCA, 78794-2, BMP, 3040-3, LIVR, 05315-6, 75750-6, 6-4 ####[facility] ([id number])[address] [address] [place] [address], [place] [address] AST [Catalytic activity/Vol] 36 U/L Normal 0-41 [facility] Comment on above: Performed By: #### C BCA, 61522-8, BMP, 3040-3, LIVR, 42558-0, 61630-4, 6-4 ####[facility] ([id number])[address] [address] [place] [address] Bilirubin [Mass/Vol] 0.6 mg/dL Normal 0.3-1.2 [facility] Comment on above: Performed By: #### C BCA, 91464-0, BMP, 3040-3, LIVR, 16710-0, 44689-0, 2276-4 ####[facility] ([id number])[address], [address] [place] [address] Bilirubin.direct [Mass/Vol] 0.2 mg/dL Normal 0.0-0.4 [facility] Comment on above: Performed By: #### C BCA, 79868-1, BMP, 3040-3, LIVR, 46331-5, 84359-7, 2276-4 ####[facility] ([id number])[address], [address] [place] [address] Protein [Mass/Vol] 6.5 g/dL Normal 6.0-8.0 [facility] Comment on above: Performed By: #### C BCA, 65018-1, BMP, 3040-3, LIVR, 38922-8, 30190-8, 6-4 ####[facility] ([id number])[address], [address] [place] [address] Lactate (P stan) [Moles/Vol]o n 12-22-2023 LACTATE W/REFLEX 1.0 mmol/L Normal 0.4-2.0 [facility] Comment on above: Result Comment: Resu lt did not trigger repeat Lactate,re-order if needed. Performed By: #### C BCA, 42217-2, BMP, 3040-3, LIVR, 79187-8, 17607-2, 6-4 ####[facility] ([id number])[address], [address] [place] [address] [facility] Lactate w/ Reflexon 12-22-19 [...] 12-22-2023 Magnesium [Mass/Vol] 1.9 mg/dL Normal 1.8-2.6 [facility] Comment on above: Performed By: #### C BCA, 59039-5, BMP, 3040-3, LIVR, 13311-2, 15397-1, 2276-4 ####[facility] ([id number])[address] [facility], [address], [place] [address] Magnesium [Mass/Vol] 1.9 mg/dL Normal 1.9-2.7 [facility] Comment on above: Performed By: #### L [id number] #### [facility] ([facility]) [address] [place] [address] MR ABDOMEN WO CONTon 024 MR ABDOMEN WO CONT Normal [facility] Magnesiumon 12-22-2023 Magnesium [Mass/Vol] 1.9 mg/dL 1.8 - 2.6 mg/dL [facility] Magnesium [Mass/Vol]on 12-21 [facility] Natriuretic peptide B [Mass/ Vol]on 12-22-2023 Natriuretic peptide B (Bld) [Mass/Vol] 828 pg/mL High <100.0 [facility] Comment on above: Performed By: #### 8 2477-1, 05659-1 ####[facility] ([id number])[address] [facility], [address], [place] [address] Interpretation and review of laboratory results Abnormal [facility] Natriuretic peptide B (Bld) [Mass/Vol] 828 pg/mL High NINF - 100.0 pg/mL [facility] No Panel Informationon 12-21 Interpretation and review of laboratory results Abnormal [facility] Interpretation and review of laboratory results Abnormal [facility] PHOSPHORUSon 12-22-2023 Magnesium [Mass/Vol] 4.6 mg/dL Normal 2.5-5.0 [facility] Comment on above: Performed By: #### L [id number] #### [facility] ([facility]) [address] [place] [address] POCT Nursing Urine Macroscop ic UAon 12-22-2023 Bilirubin Ql (U) Negative Negative^Ne gative [facility] Glucose [Mass/Vol] Negative Negative^ Ne gative mg/dL [facility] Hemoglobin Ql (U) Negative Negative^N e gative [facility] Interpretation and review of laboratory results Abnormal [facility] Ketones (U) [Mass/Vol] Negative Negative^Ne gative mg/dL [facility] Leukocyte esterase Test strip Ql (U) Trace Abnormal Negative^Ne gative [facility] Nitrite Ql (U) Negative Negative^Ne gative [facility] pH (U) 7.0 [pH] 5.0 - 8.5 [facility] Protein Ql (U) 100 mg/dL Abnormal Negative^Ne gative [facility] Specific gravity (U) [Rel density] 1.020 1.003 - 1.035 [facility] Urobilinogen Qn (U) 1.0 NINF [facility] PROTIME AND INRon 12-22-2023 INR Coag (PPP) [Relative time] 1.2 {INR} High 0.8-1.1 [facility] Comment on above: Performed By: #### 4 8066-5, PINR, 65642-7 ####[facility] ([id number])[address] [facility], [address] [place] [address] PT Coag (PPP) [Time] 13.8 s High 9.8-13.2 [facility] Comment on above: Performed By: #### 4 8066-5, PINR, 56254-4 ####[facility] ([id number])[address] [facility], [address] [place] [address] Protime & INRon 12-22-2023 INR Coag (PPP) [Relative time] 1.2 {INR} High [facility] PT Coag (PPP) [Time] 13.8 s High [facility] SUPERFICIAL WOUND CULTUREon 12-22-2023 Bacteria identified Aer cx Nom (Wound) Susceptible [facility] Comment on above: Performed By: #### 6 32-0 ####[facility] ([id number])[address] [facility] [address] [place] [address] TROPONIN Ion 12-22-2023 Troponin I.cardiac [Mass/Vol] 0.04 ng/mL Normal 0.00-0.04 [facility] Comment on above: Performed By: #### C BCA, 08354-3, BMP, 3040-3, LIVR, 84089-0, 61774-0, 2276-4 ####[facility] ([id number])[address] [address] Troponin Ion 12-22-2023 Troponin I.cardiac [Mass/Vol] 0.04 ng/mL 0.00 - 0.04 ng/mL [facility] Troponin I.cardiac [Mass/Vol ]on 12-22-2023 [facility] UA (MICROSCOPIC)on 4 MUCOUS PRESENT Abnormal NONE [facility] R.B.CELLS 3 /hpf Normal 0-5 [facility] W.B.CELLS 40 /hpf High 0-5 [facility] URINE CULTUREon 12-22-2023 Bacteria identified Cx Nom (U) Susceptible [facility] Comment on above: Performed By: #### 6 30-4 ####[facility] ([id number])[address] [facility], [address], [place] [address] URN MACROSCOPIC NURon 2023 BILIRUBIN KALINA Negative Normal NEG [facility] Comment on above: Performed By: #### N UM ####[facility] ([id number])[address] [place] [address] BLOOD/HGB KALINA Negative Normal NEG [facility] Comment on above: Performed By: #### N UM ####[facility] ([id number])[address] [place] [address] GLUCOSE KALINA Negative Normal NEG [facility] Comment on above: Performed By: #### N UM ####[facility] ([id number])[address] [place] [address] KETONES KALINA Negative Normal NEG [facility] Comment on above: Performed By: #### N UM ####[facility] ([id number])[address] [place] [address] LEUKOCYTE ESTERASE KALINA Trace Abnormal NEG [facility] Comment on above: Performed By: #### N UM ####[facility] ([id number])[address] [place] [address] NITRITE KALINA Negative Normal NEG [facility] Comment on above: Performed By: #### N UM ####[facility] ([id number])[address] [place] [address] PH KALINA 7.0 Normal 5.0-8.5 [facility] Comment on above: Performed By: #### N UM ####[facility] ([id number])[address] [facility] [place] [address] PROTEIN KALINA 100 mg/dL Abnormal NEG [facility] Comment on above: Performed By: #### N UM ####[facility] ([id number])[address] [place] [address] SPECIFIC GRAVITY KALINA 1.020 Normal 1.003-1.035 [facility] Comment on above: Performed By: #### N UM ####[facility] ([id number])[address] [place] [address] UROBILINOGEN KALINA 1.0 eu/dL Normal <1.1 [facility] Comment on above: Performed By: #### N UM ####[facility] ([id number])[address] [place] [address] US ABDOMEN LMTDon 12-22-2023 US ABDOMEN LMTD Normal [facility] US Abdomen limitedon 024 [facility] Radiology Study observation (narrative) [facility] Urine collection deviceon ER EXTRA URINES ER EXTRA URINE ORDER IN PROCESS Normal [facility] XR CHEST 1 VWon 12-22-2023 XR CHEST 1 VW Normal [facility] XR Chest [facility] 12[facility] ([facility]arrative) [facility] XR Chest Single viewOrdered By: Ray Vo on 12-22-2023 [facility] Work Phone: aPTT Coag (PPP) [Time]on aPTT Coag (Bld) [Time] s Critically high 26-37 [facility] Comment on above: Performed By: #### 4 8066-5, PINR, [id number] ####[facility] ([id number])[address] [address] BASIC METABOLIC PANELon 11-29 Anion gap [Moles/Vol] 16 mmol/L Normal 7-20 [facility] Comment on above: Performed By: #### L [id number] #### [facility] ([facility]) [address] [place] [address] Calcium [Mass/Vol] 7.2 mg/dL Low 8.6-10.3 [facility] Comment on above: Performed By: #### L [id number] #### [facility] ([facility]) [address] [place] [address] Chloride [Moles/Vol] 102 mmol/L Normal 98-107 [facility] Comment on above: Performed By: #### L [id number] #### [facility] ([facility]) [address] [place] [address] CO2 [Moles/Vol] 21 mmol/L Normal 21-31 [facility] Comment on above: Performed By: #### L [id number] #### [facility] ([facility]) [address] [place] [address] Creatinine [Mass/Vol] 1.29 mg/dL High 0.60-1.20 [facility] Comment on above: Performed By: #### L [id number] #### [facility] ([facility]) [address] [place] [address] GLOMERULAR FILTRATION RATE ML/MIN/1.73 SQ M.PREDICTED 45.8 mL/min/1.73m*2 Low >60.0 [facility] Comment on above: Result Comment: [facility]???s estimated glomerular filtration rate (eGFR) will no [...] group of individuals. Performed By: #### L [id number] #### [facility] ([facility]) [address] [place] [address] Glucose [Mass/Vol] 131 mg/dL High 70-100 [facility] Comment on above: Performed By: #### L [id number] #### [facility] ([facility]) [address] [place] [address] Potassium [Moles/Vol] 4.2 mmol/L Normal 3.5-5.1 [facility] Comment on above: Performed By: #### L [id number] #### [facility] ([facility]) [address] [place] [address] Sodium [Moles/Vol] 135 mmol/L Low 136-145 [facility] Comment on above: Performed By: #### L [id number] #### [facility] ([facility]) [address] [place] [address] Urea nitrogen [Mass/Vol] 30 mg/dL High 7-25 [facility] Comment on above: Performed By: #### L [id number] #### [facility] ([facility]) [address] [place] [address] UREA NITROGEN/CREATININ E (MASS RATIO) IN SER/PLAS 23.3 Normal [facility] Comment on above: Performed By: #### L [id number] #### [facility] ([facility]) [address] [place] [address] CBCon 12-21-2023 Erythrocyte distribution width (RBC) [Ratio] 17.2 % High 11.5-15.0 [facility] Comment on above: Performed By: #### L [id number] #### [facility] ([facility]) [address] [place] [address] ERYTHROCYTE MEAN CORPUSCULAR HEMOGLOBIN CONCENTRATION (G/DL) BY AUTOMATED 31.2 g/dL Low 32.0-35.0 [facility] Comment on above: Performed By: #### L [id number] #### [facility] ([facility]) [address] [place] [address] Hematocrit (Bld) [Volume fraction] 24.7 % Low 36.0-48.0 [facility] Comment on above: Performed By: #### L [id number] #### [facility] ([facility]) [address] [place] [address] Hemoglobin (Bld) [Mass/Vol] 7.7 g/dL Low 12.0-15.0 [facility] Comment on above: Performed By: #### L [id number] #### [facility] ([facility]) [address] [place] [address] MCH (RBC) [Entitic mass] 28.8 pg Normal 27.0-33.0 [facility] Comment on above: Performed By: #### L [id number] #### [facility] ([facility]) [address] [place] [address] MCV (RBC) [Entitic vol] 92.5 fL Normal 82.0-98.0 [facility] Comment on above: Performed By: #### L [id number] #### [facility] ([facility]) [address] [place] [address] PLATELETS (10*3/UL) IN BLOOD AUTOMATED COUNT 192 10*3/uL Normal 150-400 [facility] Comment on above: Performed By: #### L [id number] #### [facility] ([facility]) [address] [place] [address] RBC (Bld) [#/Vol] 2.67 10*6/uL Low 3.80-5.00 [facility] Comment on above: Performed By: #### L [id number] #### [facility] ([facility]) [address] [place] [address] WBC (Bld) [#/Vol] 17.43 10*3/uL High 4.00-10.60 [facility] Comment on above: Performed By: #### L [id number] #### [facility] ([facility]) [address] [place] [address] MAGNESIUMon 12-21-2023 Magnesium [Mass/Vol] 2.0 mg/dL Normal 1.9-2.7 [facility] Comment on above: Performed By: #### L [id number] #### [facility] ([facility]) [address] [place] [address] PHOSPHORUSon 12-21-2023 Magnesium [Mass/Vol] 4.0 mg/dL Normal 2.5-5.0 [facility] Comment on above: Performed By: #### L [id number] #### [facility] ([facility]) [address] [place] [address] TROPONIN Ion 12-21-2023 Troponin I.cardiac [Mass/Vol] 0.10 ng/mL High 0.00-0.04 [facility] Comment on above: Performed By: #### L [id number] #### [facility] ([facility]) [address] [place] [address] BLOOD CULTUREon 12-20-2023 Bacteria identified Cx Nom (Bld) No growth at 5 days Normal [facility] Comment on above: Performed By: #### L [id number] #### [facility] ([facility]) [address] [place] [address] C-REACTIVE PROTEINon 024 C REACTIVE PROTEIN (MG/L) IN SER/PLAS 283.0 mg/L High 0.0-7.0 [facility] Comment on above: Performed By: #### L [id number] #### [facility] ([facility]) [address] [place] [address] CBC WITH AUTO DIFFERENTIALon 12-20-2023 Basophils (Bld) [#/Vol] 0.03 10*3/uL Normal 0.00-0.20 [facility] Comment on above: Performed By: #### L [id number] #### [facility] ([facility]) [address] [place] [address] Basophils/100 WBC (Bld) 0.2 % Normal 0.0-1.0 [facility] Comment on above: Performed By: #### L [id number] #### [facility] ([facility]) [address] [place] [address] Eosinophils (Bld) [#/Vol] 0.12 10*3/uL Normal 0.00-0.50 [facility] Comment on above: Performed By: #### L [id number] #### [facility] [address] [place] [address] Eosinophils/100 WBC (Bld) 0.8 % Normal 0.0-6.0 [facility] Comment on above: Performed By: #### L [id number] #### [facility] ([facility]) [address] [place] [address] Erythrocyte distribution width (RBC) [Ratio] 17.2 % High 11.5-15.0 [facility] Comment on above: Performed By: #### L [id number] #### [facility] ([facility]) [address] [place] [address] ERYTHROCYTE MEAN CORPUSCULAR HEMOGLOBIN CONCENTRATION (G/DL) BY AUTOMATED 32.5 g/dL Normal 32.0-35.0 [facility] Comment on above: Performed By: #### L [id number] #### [facility] ([facility]) [address] [place] [address] Hematocrit (Bld) [Volume fraction] 24.3 % Low 36.0-48.0 [facility] Comment on above: Performed By: #### L [id number] #### [facility] [address] [place] [address] Hemoglobin (Bld) [Mass/Vol] 7.9 g/dL Low 12.0-15.0 [facility] Comment on above: Performed By: #### L [id number] #### [facility] [address] [place] [address] Immature granulocytes (Bld) [#/Vol] 0.18 10*3/uL Normal 0.00-0.20 [facility] Comment on above: Performed By: #### L [id number] #### [facility] ([facility]) [address] [place] [address] Immature granulocytes/100 WBC (Bld) 1.1 % High 0.0-1.0 [facility] Comment on above: Performed By: #### L [id number] #### [facility] ([facility]) [address] [place] [address] Lymphocytes (Bld) [#/Vol] 1.18 10*3/uL Low 1.20-4.00 [facility] Comment on above: Performed By: #### L [id number] #### [facility] ([facility]) [address] [place] [address] Lymphocytes/100 WBC (Bld) 7.5 % Low 20.0-45.0 [facility] Comment on above: Performed By: #### L [id number] #### [facility] ([facility]) [address] [place] [address] MCH (RBC) [Entitic mass] 29.7 pg Normal 27.0-33.0 [facility] Comment on above: Performed By: #### L [id number] #### [facility] ([facility]) [address] [place] [address] MCV (RBC) [Entitic vol] 91.4 fL Normal 82.0-98.0 [facility] Comment on above: Performed By: #### L [id number] #### [facility] ([facility]) [address] [place] [address] Monocytes (Bld) [#/Vol] 1.05 10*3/uL High 0.10-1.00 [facility] Comment on above: Performed By: #### L [id number] #### [facility] ([facility]) [address] [place] [address] Monocytes/100 WBC (Bld) 6.6 % Normal 5.0-12.0 [facility] Comment on above: Performed By: #### L [id number] #### [facility] [address] [place] [address] Neutrophils (Bld) [#/Vol] 13.25 10*3/uL High 1.60-7.60 [facility] Comment on above: Performed By: #### L [id number] #### [facility] [address] [place] [address] Neutrophils/100 WBC (Bld) 83.8 % High 40.0-72.0 [facility] Comment on above: Performed By: #### L [id number] #### [facility] ([facility]) [address] [place] [address] NRBC (PER 100 WBCS) BY AUTOMATED COUNT 0.0 % Normal 0 [facility] Comment on above: Performed By: #### L [id number] #### [facility] ([facility]) [address] [place] [address] PLATELETS (10*3/UL) IN BLOOD AUTOMATED COUNT 184 10*3/uL Normal 150-400 [facility] Comment on above: Performed By: #### L [id number] #### [facility] ([facility]) [address] [place] [address] RBC (Bld) [#/Vol] 2.66 10*6/uL Low 3.80-5.00 [facility] Comment on above: Performed By: #### L [id number] #### [facility] ([facility]) [address] [place] [address] WBC (Bld) [#/Vol] 15.81 10*3/uL High 4.00-10.60 [facility] Comment on above: Performed By: #### L [id number] #### [facility] [address] [place] [address] COMPREHENSIVE METABOLIC PANE Elver 12-20-2023 Albumin [Mass/Vol] 2.6 g/dL Low 3.5-5.7 [facility] Comment on above: Performed By: #### L [id number] #### [facility] [address] [place] [address] ALP [Catalytic activity/Vol] 234 U/L High 34-104 [facility] Comment on above: Performed By: #### L [id number] #### [facility] ([facility]) [address] [place] [address] ALT [Catalytic activity/Vol] 22 U/L Normal 7-52 [facility] Comment on above: Performed By: #### L [id number] #### [facility] ([facility]) [address] [place] [address] Anion gap [Moles/Vol] 13 mmol/L Normal 7-20 [facility] Comment on above: Performed By: #### L [id number] #### [facility] ([facility]) [address] [place] [address] AST [Catalytic activity/Vol] 23 U/L Normal 13-39 [facility] Comment on above: Performed By: #### L [id number] #### [facility] ([facility]) [address] [place] [address] Bilirubin [Mass/Vol] 0.6 mg/dL Normal 0.3-1.0 [facility] Comment on above: Performed By: #### L [id number] #### [facility] ([facility]) [address] [place] [address] Calcium [Mass/Vol] 7.3 mg/dL Low 8.6-10.3 [facility] Comment on above: Performed By: #### L [id number] #### [facility] ([facility]) [address] [place] [address] Chloride [Moles/Vol] 101 mmol/L Normal 98-107 [facility] Comment on above: Performed By: #### L [id number] #### [facility] ([facility]) [address] [place] [address] CO2 [Moles/Vol] 26 mmol/L Normal 21-31 [facility] Comment on above: Performed By: #### L [id number] #### [facility] ([facility]) [address] [place] [address] Creatinine [Mass/Vol] 1.47 mg/dL High 0.60-1.20 [facility] Comment on above: Performed By: #### L [id number] #### [facility] ([facility]) [address] [place] [address] GLOMERULAR FILTRATION RATE ML/MIN/1.73 SQ M.PREDICTED 39.1 mL/min/1.73m*2 Low >60.0 [facility] Comment on above: Result Comment: [facility]???s estimated glomerular filtration rate (eGFR) will no [...] individuals. Performed By: #### L [id number] #### [facility] ([facility]) [address] [place] [address] Glucose [Mass/Vol] 117 mg/dL High 70-100 [facility] Comment on above: Performed By: #### L [id number] #### [facility] ([facility]) [address] [place] [address] Potassium [Moles/Vol] 4.1 mmol/L Normal 3.5-5.1 [facility] Comment on above: Performed By: #### L [id number] #### [facility] ([facility]) [address] [place] [address] Protein [Mass/Vol] 6.2 g/dL Normal 6.0-8.3 [facility] Comment on above: Performed By: #### L [id number] #### [facility] ([facility]) [address] [address] Sodium [Moles/Vol] 136 mmol/L Normal 136-145 [facility] Comment on above: Performed By: #### L [id number] #### [facility] ([facility]) [address] [place] [address] Urea nitrogen [Mass/Vol] 34 mg/dL High 7-25 [facility] Comment on above: Performed By: #### L [id number] #### [facility] ([facility]) [address] [place] [address] UREA NITROGEN/CREATININ E (MASS RATIO) IN SER/PLAS 23.1 Normal [facility] Comment on above: Performed By: #### L [id number] #### [facility] ([facility]) [address] [place] [address] MAGNESIUMon 12-20-2023 Magnesium [Mass/Vol] 2.0 mg/dL Normal 1.9-2.7 [facility] Comment on above: Performed By: #### L [id number] #### [facility] ([facility]) [address] [place] [address] PHOSPHORUSon 12-20-2023 Magnesium [Mass/Vol] 3.8 mg/dL Normal 2.5-5.0 [facility] Comment on above: Performed By: #### L [id number] #### [facility] ([facility]) [address] [place] [address] PREALBUMINon 12-20-2023 Prealbumin [Mass/Vol] 9.0 mg/dL Normal [facility] Comment on above: Performed By: #### L [id number] #### [facility] ([facility]) [address] [place] [address] PROCALCITONIN TESTon 024 PROCALCITONIN IN BLOOD 0.78 ng/mL High 0.00-0.10 [facility] Comment on above: Result Comment: Susp ected [...] PCT<0.5ng/mL Performed By: #### L [id number] #### [facility] ([facility]) [address] [place] [address] TRIGLYCERIDESon 12-20-2023 FASTING? Unknown Normal [facility] Comment on above: Performed By: #### L [id number] #### [facility] ([facility]) [address] [place] [address] Magnesium [Mass/Vol] 123 mg/dL Normal 40-149 [facility] Comment on above: Result Comment: TRIG LYCERIDE REFERENCE RANGE: 20 YEARS AND OLDER CARDIOVASCULAR RISK LESS THAN 150 mg/dL LOW RISK 150 TO 199 mg/dL BORDERLINE RISK 200 mg/dL AND GREATER HIGH RISK Performed By: #### L [id number] #### [facility] ([facility]) [address] [place] [address] TROPONIN Ion 12-20-2023 Troponin I.cardiac [Mass/Vol] 0.05 ng/mL High 0.00-0.04 [facility] Comment on above: Performed By: #### L [id number] #### [facility] ([facility]) [address] [place] [address] BASIC METABOLIC PANELon 11-29 Anion gap [Moles/Vol] 13 mmol/L Normal 7-20 [facility] Comment on above: Performed By: #### L [id number] #### [facility] ([facility]) [address] [place] [address] Calcium [Mass/Vol] 6.9 mg/dL Low 8.6-10.3 [facility] Comment on above: Performed By: #### L [id number] #### [facility] [address] [place] [address] Chloride [Moles/Vol] 101 mmol/L Normal 98-107 [facility] Comment on above: Performed By: #### L [id number] #### [facility] ([facility]) [address] [place] [address] CO2 [Moles/Vol] 25 mmol/L Normal 21-31 [facility] Comment on above: Performed By: #### L [id number] #### [facility] [address] [place] [address] Creatinine [Mass/Vol] 1.45 mg/dL High 0.60-1.20 [facility] Comment on above: Performed By: #### L [id number] #### [facility] ([facility]) [address] [place] [address] GLOMERULAR FILTRATION RATE ML/MIN/1.73 SQ M.PREDICTED 39.8 mL/min/1.73m*2 Low >60.0 [facility] Comment on above: Result Comment: [facility]???s estimated glomerular filtration rate (eGFR) will no [...] individuals. Performed By: #### L [id number] #### [facility] [address] [place] [address] Glucose [Mass/Vol] 150 mg/dL High 70-100 [facility] Comment on above: Performed By: #### L [id number] #### [facility] ([facility]) [address] [place] [address] Potassium [Moles/Vol] 4.2 mmol/L Normal 3.5-5.1 [facility] Comment on above: Performed By: #### L [id number] #### [facility] ([facility]) [address] [place] [address] Sodium [Moles/Vol] 135 mmol/L Low 136-145 [facility] Comment on above: Performed By: #### L [id number] #### [facility] ([facility]) [address] [place] [address] Urea nitrogen [Mass/Vol] 37 mg/dL High 7-25 [facility] Comment on above: Performed By: #### L [id number] #### [facility] ([facility]) [address] [place] [address] UREA NITROGEN/CREATININ E (MASS RATIO) IN SER/PLAS 25.5 Normal [facility] Comment on above: Performed By: #### L [id number] #### [facility] ([facility]) [address] [place] [address] CBCon 12-19-2023 Erythrocyte distribution width (RBC) [Ratio] 17.2 % High 11.5-15.0 [facility] Comment on above: Performed By: #### L [id number] #### [facility] ([facility]) [address] [place] [address] ERYTHROCYTE MEAN CORPUSCULAR HEMOGLOBIN CONCENTRATION (G/DL) BY AUTOMATED 32.1 g/dL Normal 32.0-35.0 [facility] Comment on above: Performed By: #### L [id number] #### [facility] ([facility]) [address] [place] [address] Hematocrit (Bld) [Volume fraction] 24.3 % Low 36.0-48.0 [facility] Comment on above: Performed By: #### L [id number] #### [facility] [address] [place] [address] Hemoglobin (Bld) [Mass/Vol] 7.8 g/dL Low 12.0-15.0 [facility] Comment on above: Performed By: #### L [id number] #### [facility] ([facility]) [address] [place] [address] MCH (RBC) [Entitic mass] 29.2 pg Normal 27.0-33.0 [facility] Comment on above: Performed By: #### L [id number] #### [facility] ([facility]) [address] [place] [address] MCV (RBC) [Entitic vol] 91.0 fL Normal 82.0-98.0 [facility] Comment on above: Performed By: #### L [id number] #### [facility] ([facility]) [address] [place] [address] PLATELETS (10*3/UL) IN BLOOD AUTOMATED COUNT 181 10*3/uL Normal 150-400 [facility] Comment on above: Performed By: #### L [id number] #### [facility] ([facility]) [address] [place] [address] RBC (Bld) [#/Vol] 2.67 10*6/uL Low 3.80-5.00 [facility] Comment on above: Performed By: #### L [id number] #### [facility] ([facility]) [address] [place] [address] WBC (Bld) [#/Vol] 15.15 10*3/uL High 4.00-10.60 [facility] Comment on above: Performed By: #### L [id number] #### [facility] [address] [place] [address] MAGNESIUMon 12-19-2023 Magnesium [Mass/Vol] 2.1 mg/dL Normal 1.9-2.7 [facility] Comment on above: Performed By: #### L [id number] #### [facility] [address] [place] [address] PHOSPHORUSon 12-19-2023 Magnesium [Mass/Vol] 4.0 mg/dL Normal 2.5-5.0 [facility] Comment on above: Performed By: #### L [id number] #### [facility] ([facility]) [address] [place] [address] URINALYSIS MICROSCOPIC WITH REFLEX CULTUREon 12-19-2023 CASTS IN URINE Present Abnormal None Seen [facility] Comment on above: Performed By: #### L [id number] #### [facility] ([facility]) [address] [place] [address] CRYSTALS IN URINE Present Abnormal None Seen [facility] Comment on above: Performed By: #### L [id number] #### [facility] ([facility]) [address] [place] [address] HYALINE CASTS /LPF IN URINE SEDIMENT BY MICROSCOPY 2 /LPF High <1 [facility] Comment on above: Performed By: #### L [id number] #### [facility] ([facility]) [address] [place] [address] MUCUS (#/HPF) IN URINE SEDIMENT Occasional Normal None Seen, Occasional, Few [facility] Comment on above: Performed By: #### L [id number] #### [facility] ([facility]) [address] [place] [address] OTHER MICROSCOPIC ELEMENTS Normal [facility] Comment on above: Performed By: #### L [id number] #### [facility] [address] [place] [address] RBC (#/HPF) IN URINE SEDIMENT 3-5 Abnormal None Seen [facility] Comment on above: Performed By: #### L [id number] #### [facility] ([facility]) [address] [place] [address] SQUAMOUS EPITHELIAL CELLS (#/HPF) IN URINE SEDIMENT Occasional Normal None Seen, Occasional [facility] Comment on above: Performed By: #### L [id number] #### [facility] ([facility]) [address] [place] [address] TRIPLE PHOSPHATE CRYSTALS (#/HPF) IN URINE Few Abnormal None Seen [facility] Comment on above: Performed By: #### L [id number] #### [facility] ([facility]) [address] [place] [address] WBC (LEUKOCYTE) (#/HPF) IN URINE SEDIMENT 51-100 Abnormal None Seen [facility] Comment on above: Performed By: #### L [id number] #### [facility] ([facility]) [address] [place] [address] URINALYSIS WITH REFLEX CULTU REon 12-19-2023 BILIRUBIN, TOTAL PRESENCE IN URINE Negative Normal Negative [facility] Comment on above: Performed By: #### L [id number] #### [facility] ([facility]) [address] [place] [address] Clarity (U) Cloudy Abnormal Clear [facility] Comment on above: Performed By: #### L [id number] #### [facility] ([facility]) [address] [place] [address] Color (U) Yellow Normal Yellow [facility] Comment on above: Performed By: #### L [id number] #### [facility] ([facility]) [address] [place] [address] Glucose (U) [Mass/Vol] Negative Normal Negative [facility] Comment on above: Performed By: #### L [id number] #### [facility] ([facility]) [address] [place] [address] HEMOGLOBIN PRESENCE IN URINE Negative Normal Negative [facility] Comment on above: Performed By: #### L [id number] #### [facility] ([facility]) [address] [place] [address] Ketones Ql (U) Negative Normal Negative [facility] Comment on above: Performed By: #### L [id number] #### [facility] ([facility]) [address] [place] [address] LEUKOCYTE ESTERASE PRESENCE IN URINE BY TEST STRIP Large Abnormal Negative [facility] Comment on above: Performed By: #### L [id number] #### [facility] ([facility]) [address] [place] [address] NITRITE PRESENCE IN URINE Negative Normal Negative [facility] Comment on above: Performed By: #### L [id number] #### [facility] ([facility]) [address] [place] [address] pH (U) 8.0 [pH] Normal 5.0-8.0 [facility] Comment on above: Performed By: #### L [id number] #### [facility] ([facility]) [address] [place] [address] Protein (U) [Mass/Vol] 100 mg/dL Abnormal Negative [facility] Comment on above: Performed By: #### L [id number] #### [facility] ([facility]) [address] [place] [address] Specific gravity (U) [Rel density] 1.015 Normal 1.015-1.020 [facility] Comment on above: Performed By: #### L [id number] #### [facility] ([facility]) [address] [place] [address] URINE CULTURE, ROUTINEon Ampicillin [Susc] 1 ug/ml Susceptible [facility] Comment on above: Performed By: #### L [id number] #### [facility] ([facility]) [address] [place] [address] Nitrofurantoin [Susc] <=16 Susceptible [facility] Comment on above: Performed By: #### L [id number] #### [facility] ([facility]) [address] [place] [address] Vancomycin [Susc] 2 ug/ml Susceptible [facility] Comment on above: Performed By: #### L [id number] #### [facility] ([facility]) [address] [place] [address] CBC WITH AUTO DIFFERENTIALon 12-18-2023 Erythrocyte distribution width (RBC) [Ratio] 17.4 % High 11.5-15.0 [facility] Comment on above: Performed By: #### L [id number] #### [facility] ([facility]) [address] [place] [address] ERYTHROCYTE MEAN CORPUSCULAR HEMOGLOBIN CONCENTRATION (G/DL) BY AUTOMATED 31.9 g/dL Low 32.0-35.0 [facility] Comment on above: Performed By: #### L [id number] #### [facility] ([facility]) [address] [place] [address] Hematocrit (Bld) [Volume fraction] 25.4 % Low 36.0-48.0 [facility] Comment on above: Performed By: #### L [id number] #### [facility] ([facility]) [address] [place] [address] Hemoglobin (Bld) [Mass/Vol] 8.1 g/dL Low 12.0-15.0 [facility] Comment on above: Performed By: #### L [id number] #### [facility] ([facility]) [address] [place] [address] MCH (RBC) [Entitic mass] 29.9 pg Normal 27.0-33.0 [facility] Comment on above: Performed By: #### L [id number] #### [facility] ([facility]) [address] [place] [address] MCV (RBC) [Entitic vol] 93.7 fL Normal 82.0-98.0 [facility] Comment on above: Performed By: #### L [id number] #### [facility] ([facility]) [address] [place] [address] NRBC (PER 100 WBCS) BY AUTOMATED COUNT 0.2 % High 0 [facility] Comment on above: Performed By: #### L [id number] #### [facility] ([facility]) [address] [place] [address] PLATELETS (10*3/UL) IN BLOOD AUTOMATED COUNT 179 10*3/uL Normal 150-400 [facility] Comment on above: Performed By: #### L [id number] #### [facility] ([facility]) [address] [place] [address] RBC (Bld) [#/Vol] 2.71 10*6/uL Low 3.80-5.00 [facility] Comment on above: Performed By: #### L [id number] #### [facility] ([facility]) [address] [place] [address] WBC (Bld) [#/Vol] 10.93 10*3/uL High 4.00-10.60 [facility] Comment on above: Performed By: #### L [id number] #### [facility] ([facility]) [address] [place] [address] COMPREHENSIVE METABOLIC PANE Elvre 12-18-2023 Albumin [Mass/Vol] 2.7 g/dL Low 3.5-5.7 [facility] Comment on above: Performed By: #### L [id number] #### [facility] ([facility]) [address] [place] [address] ALP [Catalytic activity/Vol] 180 U/L High 34-104 [facility] Comment on above: Performed By: #### L [id number] #### [facility] ([facility]) [address] [place] [address] ALT [Catalytic activity/Vol] 16 U/L Normal 7-52 [facility] Comment on above: Performed By: #### L [id number] #### [facility] ([facility]) [address] [place] [address] Anion gap [Moles/Vol] 14 mmol/L Normal 7-20 [facility] Comment on above: Performed By: #### L [id number] #### [facility] ([facility]) [address] [place] [address] AST [Catalytic activity/Vol] 18 U/L Normal 13-39 [facility] Comment on above: Performed By: #### L [id number] #### [facility] ([facility]) [address] [place] [address] Bilirubin [Mass/Vol] 0.6 mg/dL Normal 0.3-1.0 [facility] Comment on above: Performed By: #### L [id number] #### [facility] ([facility]) [address] [place] [address] Calcium [Mass/Vol] 7.5 mg/dL Low 8.6-10.3 [facility] Comment on above: Performed By: #### L [id number] #### [facility] ([facility]) [address] [place] [address] Chloride [Moles/Vol] 101 mmol/L Normal 98-107 [facility] Comment on above: Performed By: #### L [id number] #### [facility] ([facility]) [address] [place] [address] CO2 [Moles/Vol] 25 mmol/L Normal 21-31 [facility] Comment on above: Performed By: #### L [id number] #### [facility] ([facility]) [address] [place] [address] Creatinine [Mass/Vol] 1.51 mg/dL High 0.60-1.20 [facility] Comment on above: Performed By: #### L [id number] #### [facility] ([facility]) [address] [place] [address] GLOMERULAR FILTRATION RATE ML/MIN/1.73 SQ M.PREDICTED 37.9 mL/min/1.73m*2 Low >60.0 [facility] Comment on above: Result Comment: [facility]???s estimated glomerular filtration rate (eGFR) will no [...] individuals. Performed By: #### L [id number] #### [facility] ([facility]) [address] [place] [address] Glucose [Mass/Vol] 178 mg/dL High 70-100 [facility] Comment on above: Performed By: #### L [id number] #### [facility] ([facility]) [address] [place] [address] Potassium [Moles/Vol] 4.1 mmol/L Normal 3.5-5.1 [facility] Comment on above: Performed By: #### L [id number] #### [facility] ([facility]) [address] [place] [address] Protein [Mass/Vol] 6.2 g/dL Normal 6.0-8.3 [facility] Comment on above: Performed By: #### L [id number] #### [facility] ([facility]) [address] [place] [address] Sodium [Moles/Vol] 136 mmol/L Normal 136-145 [facility] Comment on above: Performed By: #### L [id number] #### [facility] ([facility]) [address] [place] [address] Urea nitrogen [Mass/Vol] 39 mg/dL High 7-25 [facility] Comment on above: Performed By: #### L [id number] #### [facility] ([facility]) [address] [place] [address] UREA NITROGEN/CREATININ E (MASS RATIO) IN SER/PLAS 25.8 Normal [facility] Comment on above: Performed By: #### L [id number] #### [facility] ([facility]) [address] [place] [address] MAGNESIUMon 12-18-2023 Magnesium [Mass/Vol] 2.6 mg/dL Normal 1.9-2.7 [facility] Comment on above: Performed By: #### L [id number] #### [facility] ([facility]) [address] [place] [address] MANUAL DIFFERENTIALon 2023 BASOPHILS (10*3/UL) IN BLOOD BY CALCULATION 0.04 10*3/uL Normal 0.00-0.20 [facility] Comment on above: Performed By: #### L [id number] #### [facility] ([facility]) [address] [place] [address] BASOPHILS/100 LEUKOCYTES IN BLOOD BY AUTOMATED COUNT 0.4 % Normal 0.0-1.0 [facility] Comment on above: Performed By: #### L [id number] #### [facility] ([facility]) [address] [place] [address] EOSINOPHILS (10*3/UL) IN BLOOD BY CALCULATION 0.19 10*3/uL Normal 0.00-0.50 [facility] Comment on above: Performed By: #### L [id number] #### [facility] ([facility]) [address] [place] [address] EOSINOPHILS/100 LEUKOCYTES IN BLOOD BY AUTOMATED COUNT 1.7 % Normal 0.0-6.0 [facility] Comment on above: Performed By: #### L [id number] #### [facility] ([facility]) [address] [place] [address] IMMATURE GRANULOCYTES (10*3/UL) IN BLOOD BY CALCULATION 0.11 10*3/uL Normal 0.00-0.20 [facility] Comment on above: Performed By: #### L [id number] #### [facility] ([facility]) [address] [place] [address] IMMATURE GRANULOCYTES/100 LEUKOCYTES IN BLOOD BY AUTOMATED COUNT 1.0 % Normal 0.0-1.0 [facility] Comment on above: Performed By: #### L [id number] #### [facility] ([facility]) [address] [place] [address] LYMPHOCYTES (10*3/UL) IN BLOOD BY CALCULATION 1.25 10*3/uL Normal 1.20-4.00 [facility] Comment on above: Performed By: #### L [id number] #### [facility] ([facility]) [address] [place] [address] LYMPHOCYTES/100 LEUKOCYTES IN BLOOD BY AUTOMATED COUNT 11.4 % Low 20.0-45.0 [facility] Comment on above: Performed By: #### L [id number] #### [facility] ([facility]) [address] [place] [address] MONOCYTES (10*3/UL) IN BLOOD BY CALCUATION 0.95 10*3/uL Normal 0.10-1.00 [facility] Comment on above: Performed By: #### L [id number] #### [facility] ([facility]) [address] [place] [address] MONOCYTES/100 LEUKOCYTES IN BLOOD BY AUTOMATED COUNT 8.7 % Normal 5.0-12.0 [facility] Comment on above: Performed By: #### L [id number] #### [facility] ([facility]) [address] [place] [address] NEUTROPHILS (10*3/UL) IN BLOOD BY CALCULATION 8.4 10*3/uL High 1.6-7.6 [facility] Comment on above: Performed By: #### L [id number] #### [facility] ([facility]) [address] [place] [address] NEUTROPHILS/100 LEUKOCYTES IN BLOOD BY AUTOMATED COUNT 76.8 % High 40.0-72.0 [facility] Comment on above: Performed By: #### L [id number] #### [facility] ([facility]) [address] [place] [address] PHOSPHORUSon 12-18-2023 Magnesium [Mass/Vol] 4.8 mg/dL Normal 2.5-5.0 [facility] Comment on above: Performed By: #### L [id number] #### [facility] ([facility]) [address] [place] [address] BASIC METABOLIC PANELon 11-28 Anion gap [Moles/Vol] 13 mmol/L Normal 7-20 [facility] Comment on above: Performed By: #### L [id number] #### [facility] ([facility]) [address] [place] [address] Calcium [Mass/Vol] 7.8 mg/dL Low 8.6-10.3 [facility] Comment on above: Performed By: #### L [id number] #### [facility] ([facility]) [address] [place] [address] Chloride [Moles/Vol] 102 mmol/L Normal 98-107 [facility] Comment on above: Performed By: #### L [id number] #### [facility] ([facility]) [address] [place] [address] CO2 [Moles/Vol] 28 mmol/L Normal 21-31 [facility] Comment on above: Performed By: #### L [id number] #### [facility] ([facility]) [address] [place] [address] Creatinine [Mass/Vol] 1.62 mg/dL High 0.60-1.20 [facility] Comment on above: Performed By: #### L [id number] #### [facility] ([facility]) [address] [place] [address] GLOMERULAR FILTRATION RATE ML/MIN/1.73 SQ M.PREDICTED 34.8 mL/min/1.73m*2 Low >60.0 [facility] Comment on above: Result Comment: [facility]???s estimated glomerular filtration rate (eGFR) will no [...] individuals. Performed By: #### L [id number] #### [facility] [address] [place] [address] Glucose [Mass/Vol] 120 mg/dL High 70-100 [facility] Comment on above: Performed By: #### L [id number] #### [facility] ([facility]) [address] [place] [address] Potassium [Moles/Vol] 4.0 mmol/L Normal 3.5-5.1 [facility] Comment on above: Performed By: #### L [id number] #### [facility] ([facility]) [address] [place] [address] Sodium [Moles/Vol] 139 mmol/L Normal 136-145 [facility] Comment on above: Performed By: #### L [id number] #### [facility] ([facility]) [address] [place] [address] Urea nitrogen [Mass/Vol] 42 mg/dL High 7-25 [facility] Comment on above: Performed By: #### L [id number] #### [facility] ([facility]) [address] [place] [address] UREA NITROGEN/CREATININ E (MASS RATIO) IN SER/PLAS 25.9 Normal [facility] Comment on above: Performed By: #### L [id number] #### [facility] ([facility]) [address] [place] [address] CBCon 12-17-2023 Erythrocyte distribution width (RBC) [Ratio] 17.7 % High 11.5-15.0 [facility] Comment on above: Performed By: #### L [id number] #### [facility] ([facility]) [address] [place] [address] ERYTHROCYTE MEAN CORPUSCULAR HEMOGLOBIN CONCENTRATION (G/DL) BY AUTOMATED 31.6 g/dL Low 32.0-35.0 [facility] Comment on above: Performed By: #### L [id number] #### [facility] [address] [place] [address] Hematocrit (Bld) [Volume fraction] 26.6 % Low 36.0-48.0 [facility] Comment on above: Performed By: #### L [id number] #### [facility] [address] [place] [address] Hemoglobin (Bld) [Mass/Vol] 8.4 g/dL Low 12.0-15.0 [facility] Comment on above: Performed By: #### L [id number] #### [facility] [address] [place] [address] MCH (RBC) [Entitic mass] 29.7 pg Normal 27.0-33.0 [facility] Comment on above: Performed By: #### L [id number] #### [facility] ([facility]) [address] [place] [address] MCV (RBC) [Entitic vol] 94.0 fL Normal 82.0-98.0 [facility] Comment on above: Performed By: #### L [id number] #### [facility] ([facility]) [address] [place] [address] PLATELETS (10*3/UL) IN BLOOD AUTOMATED COUNT 186 10*3/uL Normal 150-400 [facility] Comment on above: Performed By: #### L [id number] #### [facility] ([facility]) [address] [place] [address] RBC (Bld) [#/Vol] 2.83 10*6/uL Low 3.80-5.00 [facility] Comment on above: Performed By: #### L [id number] #### [facility] [address] [place] [address] WBC (Bld) [#/Vol] 10.06 10*3/uL Normal 4.00-10.60 [facility] Comment on above: Performed By: #### L [id number] #### [facility] [address] [place] [address] MAGNESIUMon 12-17-2023 Magnesium [Mass/Vol] 2.8 mg/dL High 1.9-2.7 [facility] Comment on above: Performed By: #### L [id number] #### [facility] [address] [place] [address] PHOSPHORUSon 12-17-2023 Magnesium [Mass/Vol] 4.7 mg/dL Normal 2.5-5.0 [facility] Comment on above: Performed By: #### L [id number] #### [facility] ([facility]) [address] [place] [address] CBC WITH AUTO DIFFERENTIALon 12-16-2023 Erythrocyte distribution width (RBC) [Ratio] 17.7 % High 11.5-15.0 [facility] Comment on above: Performed By: #### L [id number] #### [facility] ([facility]) [address] [place] [address] ERYTHROCYTE MEAN CORPUSCULAR HEMOGLOBIN CONCENTRATION (G/DL) BY AUTOMATED 32.1 g/dL Normal 32.0-35.0 [facility] Comment on above: Performed By: #### L [id number] #### [facility] ([facility]) [address] [place] [address] Hematocrit (Bld) [Volume fraction] 29.0 % Low 36.0-48.0 [facility] Comment on above: Performed By: #### L [id number] #### [facility] ([facility]) [address] [facility] [place] [address] Hemoglobin (Bld) [Mass/Vol] 9.3 g/dL Low 12.0-15.0 [facility] Comment on above: Performed By: #### L [id number] #### [facility] ([facility]) [address] [place] [address] MCH (RBC) [Entitic mass] 30.4 pg Normal 27.0-33.0 [facility] Comment on above: Performed By: #### L [id number] #### [facility] ([facility]) [address] [place] [address] MCV (RBC) [Entitic vol] 94.8 fL Normal 82.0-98.0 [facility] Comment on above: Performed By: #### L [id number] #### [facility] ([facility]) [address] [place] [address] NRBC (PER 100 WBCS) BY AUTOMATED COUNT 0.0 % Normal 0 [facility] Comment on above: Performed By: #### L [id number] #### [facility] ([facility]) [address] [place] [address] PLATELETS (10*3/UL) IN BLOOD AUTOMATED COUNT 165 10*3/uL Normal 150-400 [facility] Comment on above: Performed By: #### L [id number] #### [facility] ([facility]) [address] [place] [address] RBC (Bld) [#/Vol] 3.06 10*6/uL Low 3.80-5.00 [facility] Comment on above: Performed By: #### L [id number] #### [facility] ([facility]) [address] [place] [address] WBC (Bld) [#/Vol] 8.42 10*3/uL Normal 4.00-10.60 [facility] Comment on above: Performed By: #### L [id number] #### [facility] ([facility]) [address] [place] [address] COMPREHENSIVE METABOLIC PANE Elver 12-16-2023 Albumin [Mass/Vol] 2.9 g/dL Low 3.5-5.7 [facility] Comment on above: Performed By: #### L [id number] #### [facility] ([facility]) [address] [place] [address] ALP [Catalytic activity/Vol] 197 U/L High 34-104 [facility] Comment on above: Performed By: #### L [id number] #### [facility] ([facility]) [address] [place] [address] ALT [Catalytic activity/Vol] 19 U/L Normal 7-52 [facility] Comment on above: Performed By: #### L [id number] #### [facility] ([facility]) [address] [place] [address] Anion gap [Moles/Vol] 16 mmol/L Normal 7-20 [facility] Comment on above: Performed By: #### L [id number] #### [facility] ([facility]) [address] [place] [address] AST [Catalytic activity/Vol] 23 U/L Normal 13-39 [facility] Comment on above: Performed By: #### L [id number] #### [facility] ([facility]) [address] [place] [address] Bilirubin [Mass/Vol] 0.6 mg/dL Normal 0.3-1.0 [facility] Comment on above: Performed By: #### L [id number] #### [facility] ([facility]) [address] [place] [address] Calcium [Mass/Vol] 8.1 mg/dL Low 8.6-10.3 [facility] Comment on above: Performed By: #### L [id number] #### [facility] ([facility]) [address] [place] [address] Chloride [Moles/Vol] 104 mmol/L Normal 98-107 [facility] Comment on above: Performed By: #### L [id number] #### [facility] [address] [place] [address] CO2 [Moles/Vol] 24 mmol/L Normal 21-31 [facility] Comment on above: Performed By: #### L [id number] #### [facility] ([facility]) [address] [place] [address] Creatinine [Mass/Vol] 1.57 mg/dL High 0.60-1.20 [facility] Comment on above: Performed By: #### L [id number] #### [facility] ([facility]) [address] [place] [address] GLOMERULAR FILTRATION RATE ML/MIN/1.73 SQ M.PREDICTED 36.2 mL/min/1.73m*2 Low >60.0 [facility] Comment on above: Result Comment: [facility]???s estimated glomerular filtration rate (eGFR) will no [...] individuals. Performed By: #### L [id number] #### [facility] ([facility]) [address] [place] [address] Glucose [Mass/Vol] 74 mg/dL Normal 70-100 [facility] Comment on above: Performed By: #### L [id number] #### [facility] ([facility]) [address] [place] [address] Potassium [Moles/Vol] 4.2 mmol/L Normal 3.5-5.1 [facility] Comment on above: Performed By: #### L [id number] #### [facility] ([facility]) [address] [place] [address] Protein [Mass/Vol] 6.6 g/dL Normal 6.0-8.3 [facility] Comment on above: Performed By: #### L [id number] #### [facility] ([facility]) [address] [place] [address] Sodium [Moles/Vol] 140 mmol/L Normal 136-145 [facility] Comment on above: Performed By: #### L [id number] #### [facility] ([facility]) [address] [place] [address] Urea nitrogen [Mass/Vol] 46 mg/dL High 7-25 [facility] Comment on above: Performed By: #### L [id number] #### [facility] ([facility]) [address] [place] [address] UREA NITROGEN/CREATININ E (MASS RATIO) IN SER/PLAS 29.3 Normal [facility] Comment on above: Performed By: #### L [id number] #### [facility] ([facility]) [address] [place] [address] MAGNESIUMon 12-16-2023 Magnesium [Mass/Vol] 2.8 mg/dL High 1.9-2.7 [facility] Comment on above: Performed By: #### L [id number] #### [facility] ([facility]) [address] [place] [address] MANUAL DIFFERENTIALon 2023 BASOPHILS (10*3/UL) IN BLOOD BY CALCULATION 0.03 10*3/uL Normal 0.00-0.20 [facility] Comment on above: Performed By: #### L [id number] #### [facility] ([facility]) [address] [place] [address] BASOPHILS/100 LEUKOCYTES IN BLOOD BY AUTOMATED COUNT 0.4 % Normal 0.0-1.0 [facility] Comment on above: Performed By: #### L [id number] #### [facility] ([facility]) [address] [place] [address] EOSINOPHILS (10*3/UL) IN BLOOD BY CALCULATION 0.16 10*3/uL Normal 0.00-0.50 [facility] Comment on above: Performed By: #### L [id number] #### [facility] ([facility]) [address] [place] [address] EOSINOPHILS/100 LEUKOCYTES IN BLOOD BY AUTOMATED COUNT 1.9 % Normal 0.0-6.0 [facility] Comment on above: Performed By: #### L [id number] #### [facility] ([facility]) [address] [place] [address] IMMATURE GRANULOCYTES (10*3/UL) IN BLOOD BY CALCULATION 0.10 10*3/uL Normal 0.00-0.20 [facility] Comment on above: Performed By: #### L [id number] #### [facility] ([facility]) [address] [place] [address] IMMATURE GRANULOCYTES/100 LEUKOCYTES IN BLOOD BY AUTOMATED COUNT 1.2 % High 0.0-1.0 [facility] Comment on above: Performed By: #### L [id number] #### [facility] ([facility]) [address] [place] [address] LYMPHOCYTES (10*3/UL) IN BLOOD BY CALCULATION 1.14 10*3/uL Low 1.20-4.00 [facility] Comment on above: Performed By: #### L [id number] #### [facility] ([facility]) [address] [place] [address] LYMPHOCYTES/100 LEUKOCYTES IN BLOOD BY AUTOMATED COUNT 13.5 % Low 20.0-45.0 [facility] Comment on above: Performed By: #### L [id number] #### [facility] ([facility]) [address] [place] [address] MONOCYTES (10*3/UL) IN BLOOD BY CALCUATION 1.07 10*3/uL High 0.10-1.00 [facility] Comment on above: Performed By: #### L [id number] #### [facility] ([facility]) [address] [place] [address] MONOCYTES/100 LEUKOCYTES IN BLOOD BY AUTOMATED COUNT 12.7 % High 5.0-12.0 [facility] Comment on above: Performed By: #### L [id number] #### [facility] ([facility]) [address] [place] [address] NEUTROPHILS (10*3/UL) IN BLOOD BY CALCULATION 5.9 10*3/uL Normal 1.6-7.6 [facility] Comment on above: Performed By: #### L [id number] #### [facility] ([facility]) [address] [place] [address] NEUTROPHILS/100 LEUKOCYTES IN BLOOD BY AUTOMATED COUNT 70.3 % Normal 40.0-72.0 [facility] Comment on above: Performed By: #### L [id number] #### [facility] [address] [place] [address] TOXIC GRANULES PRESENCE IN BLOOD BY LIGHT MICROSCOPY Slight Normal [facility] Comment on above: Performed By: #### L [id number] #### [facility] ([facility]) [address] [place] [address] PHOSPHORUSon 12-16-2023 Magnesium [Mass/Vol] 5.0 mg/dL Normal 2.5-5.0 [facility] Comment on above: Performed By: #### L [id number] #### [facility] [address] [place] [address] BASIC METABOLIC PANELon 11-28 Anion gap [Moles/Vol] 17 mmol/L Normal 7-20 [facility] Comment on above: Performed By: #### L [id number] #### [facility] ([facility]) [address] [place] [address] Calcium [Mass/Vol] 8.2 mg/dL Low 8.6-10.3 [facility] Comment on above: Performed By: #### L [id number] #### [facility] [address] [place] [address] Chloride [Moles/Vol] 101 mmol/L Normal 98-107 [facility] Comment on above: Performed By: #### L [id number] #### [facility] [address] [place] [address] CO2 [Moles/Vol] 24 mmol/L Normal 21-31 [facility] Comment on above: Performed By: #### L [id number] #### [facility] ([facility]) [address] [place] [address] Creatinine [Mass/Vol] 1.09 mg/dL Normal 0.60-1.20 [facility] Comment on above: Performed By: #### L [id number] #### [facility] ([facility]) [address] [place] [address] GLOMERULAR FILTRATION RATE ML/MIN/1.73 SQ M.PREDICTED 56.0 mL/min/1.73m*2 Low >60.0 [facility] Comment on above: Result Comment: [facility]???s estimated glomerular filtration rate (eGFR) will no [...] individuals. Performed By: #### L [id number] #### [facility] ([facility]) [address] [place] [address] Glucose [Mass/Vol] 101 mg/dL High 70-100 [facility] Comment on above: Performed By: #### L [id number] #### [facility] ([facility]) [address] [place] [address] Potassium [Moles/Vol] 4.3 mmol/L Normal 3.5-5.1 [facility] Comment on above: Performed By: #### L [id number] #### [facility] ([facility]) [address] [place] [address] Sodium [Moles/Vol] 138 mmol/L Normal 136-145 [facility] Comment on above: Performed By: #### L [id number] #### [facility] ([facility]) [address] [place] [address] Urea nitrogen [Mass/Vol] 54 mg/dL High 7-25 [facility] Comment on above: Performed By: #### L [id number] #### [facility] ([facility]) [address] [place] [address] UREA NITROGEN/CREATININ E (MASS RATIO) IN SER/PLAS 49.5 Normal [facility] Comment on above: Performed By: #### L [id number] #### [facility] ([facility]) [address] [place] [address] CBCon 12-15-2023 Erythrocyte distribution width (RBC) [Ratio] 17.9 % High 11.5-15.0 [facility] Comment on above: Performed By: #### L [id number] #### [facility] ([facility]) [address] [place] [address] ERYTHROCYTE MEAN CORPUSCULAR HEMOGLOBIN CONCENTRATION (G/DL) BY AUTOMATED 31.6 g/dL Low 32.0-35.0 [facility] Comment on above: Performed By: #### L [id number] #### [facility] ([facility]) [address] [place] [address] Hematocrit (Bld) [Volume fraction] 29.7 % Low 36.0-48.0 [facility] Comment on above: Performed By: #### L [id number] #### [facility] ([facility]) [address] [place] [address] Hemoglobin (Bld) [Mass/Vol] 9.4 g/dL Low 12.0-15.0 [facility] Comment on above: Performed By: #### L [id number] #### [facility] ([facility]) [address] [place] [address] MCH (RBC) [Entitic mass] 29.6 pg Normal 27.0-33.0 [facility] Comment on above: Performed By: #### L [id number] #### [facility] ([facility]) [address] [place] [address] MCV (RBC) [Entitic vol] 93.4 fL Normal 82.0-98.0 [facility] Comment on above: Performed By: #### L [id number] #### [facility] ([facility]) [address] [place] [address] PLATELETS (10*3/UL) IN BLOOD AUTOMATED COUNT 156 10*3/uL Normal 150-400 [facility] Comment on above: Performed By: #### L [id number] #### [facility] ([facility]) [address] [place] [address] RBC (Bld) [#/Vol] 3.18 10*6/uL Low 3.80-5.00 [facility] Comment on above: Performed By: #### L [id number] #### [facility] ([facility]) [address] [place] [address] WBC (Bld) [#/Vol] 10.29 10*3/uL Normal 4.00-10.60 [facility] Comment on above: Performed By: #### L [id number] #### [facility] ([facility]) [address] [place] [address] MAGNESIUMon 12-15-2023 Magnesium [Mass/Vol] 2.4 mg/dL Normal 1.9-2.7 [facility] Comment on above: Performed By: #### L [id number] #### [facility] ([facility]) [address] [place] [address] PHOSPHORUSon 12-15-2023 Magnesium [Mass/Vol] 5.2 mg/dL High 2.5-5.0 [facility] Comment on above: Performed By: #### L [id number] #### [facility] ([facility]) [address] [place] [address] BASIC METABOLIC PANELon 11-28 Anion gap [Moles/Vol] 16 mmol/L Normal 7-20 [facility] Comment on above: Performed By: #### L [id number] #### [facility] ([facility]) [address] [place] [address] Calcium [Mass/Vol] 8.7 mg/dL Normal 8.6-10.3 [facility] Comment on above: Performed By: #### L [id number] #### [facility] ([facility]) [address] [place] [address] Chloride [Moles/Vol] 99 mmol/L Normal 98-107 [facility] Comment on above: Performed By: #### L [id number] #### [facility] ([facility]) [address] [place] [address] CO2 [Moles/Vol] 26 mmol/L Normal 21-31 [facility] Comment on above: Performed By: #### L [id number] #### [facility] ([facility]) [address] [place] [address] Creatinine [Mass/Vol] 1.65 mg/dL High 0.60-1.20 [facility] Comment on above: Performed By: #### L [id number] #### [facility] ([facility]) [address] [place] [address] GLOMERULAR FILTRATION RATE ML/MIN/1.73 SQ M.PREDICTED 34.1 mL/min/1.73m*2 Low >60.0 [facility] Comment on above: Result Comment: [facility]???s estimated glomerular filtration rate (eGFR) will no [...] individuals. Performed By: #### L [id number] #### [facility] ([facility]) [address] [place] [address] Glucose [Mass/Vol] 141 mg/dL High 70-100 [facility] Comment on above: Performed By: #### L [id number] #### [facility] ([facility]) [address] [place] [address] Potassium [Moles/Vol] 4.4 mmol/L Normal 3.5-5.1 [facility] Comment on above: Performed By: #### L [id number] #### [facility] ([facility]) [address] [place] [address] Sodium [Moles/Vol] 137 mmol/L Normal 136-145 [facility] Comment on above: Performed By: #### L [id number] #### [facility] [address] [place] [address] Urea nitrogen [Mass/Vol] 62 mg/dL High 7-25 [facility] Comment on above: Performed By: #### L [id number] #### [facility] [address] [place] [address] UREA NITROGEN/CREATININ E (MASS RATIO) IN SER/PLAS 37.6 Normal [facility] Comment on above: Performed By: #### L [id number] #### [facility] ([facility]) [address] [place] [address] CBCon 12-14-2023 Erythrocyte distribution width (RBC) [Ratio] 18.1 % High 11.5-15.0 [facility] Comment on above: Performed By: #### L [id number] #### [facility] [address] [place] [address] ERYTHROCYTE MEAN CORPUSCULAR HEMOGLOBIN CONCENTRATION (G/DL) BY AUTOMATED 31.7 g/dL Low 32.0-35.0 [facility] Comment on above: Performed By: #### L [id number] #### [facility] [address] [place] [address] Hematocrit (Bld) [Volume fraction] 29.3 % Low 36.0-48.0 [facility] Comment on above: Performed By: #### L [id number] #### [facility] ([facility]) [address] [place] [address] Hemoglobin (Bld) [Mass/Vol] 9.3 g/dL Low 12.0-15.0 [facility] Comment on above: Performed By: #### L [id number] #### [facility] ([facility]) [address] [place] [address] MCH (RBC) [Entitic mass] 29.7 pg Normal 27.0-33.0 [facility] Comment on above: Performed By: #### L [id number] #### [facility] ([facility]) [address] [place] [address] MCV (RBC) [Entitic vol] 93.6 fL Normal 82.0-98.0 [facility] Comment on above: Performed By: #### L [id number] #### [facility] ([facility]) [address] [place] [address] PLATELETS (10*3/UL) IN BLOOD AUTOMATED COUNT 152 10*3/uL Normal 150-400 [facility] Comment on above: Performed By: #### L [id number] #### [facility] ([facility]) [address] [place] [address] RBC (Bld) [#/Vol] 3.13 10*6/uL Low 3.80-5.00 [facility] Comment on above: Performed By: #### L [id number] #### [facility] ([facility]) [address] [place] [address] WBC (Bld) [#/Vol] 9.06 10*3/uL Normal 4.00-10.60 [facility] Comment on above: Performed By: #### L [id number] #### [facility] ([facility]) [address] [place] [address] MAGNESIUMon 12-14-2023 Magnesium [Mass/Vol] 2.4 mg/dL Normal 1.9-2.7 [facility] Comment on above: Performed By: #### L [id number] #### [facility] ([facility]) [address] [place] [address] PHOSPHORUSon 12-14-2023 Magnesium [Mass/Vol] 4.4 mg/dL Normal 2.5-5.0 [facility] Comment on above: Performed By: #### L [id number] #### [facility] ([facility]) [address] [place] [address] BASIC METABOLIC PANELon 03- Anion gap [Moles/Vol] 15 mmol/L Normal 7-20 [facility] Comment on above: Performed By: #### L [id number] #### [facility] [address] [place] [address] Calcium [Mass/Vol] 8.7 mg/dL Normal 8.6-10.3 [facility] Comment on above: Performed By: #### L [id number] #### [facility] [address] [place] [address] Chloride [Moles/Vol] 99 mmol/L Normal 98-107 [facility] Comment on above: Performed By: #### L [id number] #### [facility] [address] [place] [address] CO2 [Moles/Vol] 26 mmol/L Normal 21-31 [facility] Comment on above: Performed By: #### L [id number] #### [facility] ([facility]) [address] [place] [address] Creatinine [Mass/Vol] 1.65 mg/dL High 0.60-1.20 [facility] Comment on above: Performed By: #### L [id number] #### [facility] ([facility]) [address] [place] [address] GLOMERULAR FILTRATION RATE ML/MIN/1.73 SQ M.PREDICTED 34.1 mL/min/1.73m*2 Low >60.0 [facility] Comment on above: Result Comment: [facility]???s estimated glomerular filtration rate (eGFR) will no [...] individuals. Performed By: #### L [id number] #### [facility] ([facility]) [address] [place] [address] Glucose [Mass/Vol] 170 mg/dL High 70-100 [facility] Comment on above: Performed By: #### L [id number] #### [facility] ([facility]) [address] [place] [address] Potassium [Moles/Vol] 4.6 mmol/L Normal 3.5-5.1 [facility] Comment on above: Performed By: #### L [id number] #### [facility] ([facility]) [address] [place] [address] Sodium [Moles/Vol] 135 mmol/L Low 136-145 [facility] Comment on above: Performed By: #### L [id number] #### [facility] ([facility]) [address] [place] [address] Urea nitrogen [Mass/Vol] 70 mg/dL High 7-25 [facility] Comment on above: Performed By: #### L [id number] #### [facility] ([facility]) [address] [place] [address] UREA NITROGEN/CREATININ E (MASS RATIO) IN SER/PLAS 42.4 Normal [facility] Comment on above: Performed By: #### L [id number] #### [facility] ([facility]) [address] [place] [address] CBC WITH AUTO DIFFERENTIALon 12-13-2023 Erythrocyte distribution width (RBC) [Ratio] 18.5 % High 11.5-15.0 [facility] Comment on above: Performed By: #### L [id number] #### [facility] ([facility]) [address] [place] [address] ERYTHROCYTE MEAN CORPUSCULAR HEMOGLOBIN CONCENTRATION (G/DL) BY AUTOMATED 32.3 g/dL Normal 32.0-35.0 [facility] Comment on above: Performed By: #### L [id number] #### [facility] [address] [place] [address] Hematocrit (Bld) [Volume fraction] 25.7 % Low 36.0-48.0 [facility] Comment on above: Performed By: #### L [id number] #### [facility] [address] [place] [address] Hemoglobin (Bld) [Mass/Vol] 8.3 g/dL Low 12.0-15.0 [facility] Comment on above: Performed By: #### L [id number] #### [facility] ([facility]) [address] [place] [address] MCH (RBC) [Entitic mass] 30.9 pg Normal 27.0-33.0 [facility] Comment on above: Performed By: #### L [id number] #### [facility] ([facility]) [address] [place] [address] MCV (RBC) [Entitic vol] 95.5 fL Normal 82.0-98.0 [facility] Comment on above: Performed By: #### L [id number] #### [facility] ([facility]) [address] [place] [address] NRBC (PER 100 WBCS) BY AUTOMATED COUNT 0.0 % Normal 0 [facility] Comment on above: Performed By: #### L [id number] #### [facility] ([facility]) [address] [place] [address] PLATELETS (10*3/UL) IN BLOOD AUTOMATED COUNT 139 10*3/uL Low 150-400 [facility] Comment on above: Performed By: #### L [id number] #### [facility] ([facility]) [address] [place] [address] RBC (Bld) [#/Vol] 2.69 10*6/uL Low 3.80-5.00 [facility] Comment on above: Performed By: #### L [id number] #### [facility] ([facility]) [address] [place] [address] WBC (Bld) [#/Vol] 9.26 10*3/uL Normal 4.00-10.60 [facility] Comment on above: Performed By: #### L [id number] #### [facility] ([facility]) [address] [place] [address] MAGNESIUMon 12-13-2023 Magnesium [Mass/Vol] 2.3 mg/dL Normal 1.9-2.7 [facility] Comment on above: Performed By: #### L [id number] #### [facility] ([facility]) [address] [place] [address] MANUAL DIFFERENTIALon 2023 BASOPHILS (10*3/UL) IN BLOOD BY CALCULATION 0.04 10*3/uL Normal 0.00-0.20 [facility] Comment on above: Performed By: #### L [id number] #### [facility] ([facility]) [address] [place] [address] BASOPHILS/100 LEUKOCYTES IN BLOOD BY AUTOMATED COUNT 0.4 % Normal 0.0-1.0 [facility] Comment on above: Performed By: #### L [id number] #### [facility] ([facility]) [address] [place] [address] EOSINOPHILS (10*3/UL) IN BLOOD BY CALCULATION 0.16 10*3/uL Normal 0.00-0.50 [facility] Comment on above: Performed By: #### L [id number] #### [facility] ([facility]) [address] [place] [address] EOSINOPHILS/100 LEUKOCYTES IN BLOOD BY AUTOMATED COUNT 1.7 % Normal 0.0-6.0 [facility] Comment on above: Performed By: #### L [id number] #### [facility] ([facility]) [address] [place] [address] IMMATURE GRANULOCYTES (10*3/UL) IN BLOOD BY CALCULATION 0.02 10*3/uL Normal 0.00-0.20 [facility] Comment on above: Performed By: #### L [id number] #### [facility] ([facility]) [address] [place] [address] IMMATURE GRANULOCYTES/100 LEUKOCYTES IN BLOOD BY AUTOMATED COUNT 0.2 % Normal 0.0-1.0 [facility] Comment on above: Performed By: #### L [id number] #### [facility] ([facility]) [address] [place] [address] LYMPHOCYTES (10*3/UL) IN BLOOD BY CALCULATION 1.33 10*3/uL Normal 1.20-4.00 [facility] Comment on above: Performed By: #### L [id number] #### [facility] ([facility]) [address] [place] [address] LYMPHOCYTES/100 LEUKOCYTES IN BLOOD BY AUTOMATED COUNT 14.4 % Low 20.0-45.0 [facility] Comment on above: Performed By: #### L [id number] #### [facility] ([facility]) [address] [place] [address] MONOCYTES (10*3/UL) IN BLOOD BY CALCUATION 1.17 10*3/uL High 0.10-1.00 [facility] Comment on above: Performed By: #### L [id number] #### [facility] ([facility]) [address] [place] [address] MONOCYTES/100 LEUKOCYTES IN BLOOD BY AUTOMATED COUNT 12.6 % High 5.0-12.0 [facility] Comment on above: Performed By: #### L [id number] #### [facility] ([facility]) [address] [place] [address] NEUTROPHILS (10*3/UL) IN BLOOD BY CALCULATION 6.5 10*3/uL Normal 1.6-7.6 [facility] Comment on above: Performed By: #### L [id number] #### [facility] ([facility]) [address] [place] [address] NEUTROPHILS/100 LEUKOCYTES IN BLOOD BY AUTOMATED COUNT 70.7 % Normal 40.0-72.0 [facility] Comment on above: Performed By: #### L [id number] #### [facility] ([facility] [address] [place] [address] PHOSPHORUSon 12-13-2023 Magnesium [Mass/Vol] 3.7 mg/dL Normal 2.5-5.0 [facility] Comment on above: Performed By: #### L [id number] #### [facility] [address] [place] [address] PREALBUMINon 12-13-2023 Prealbumin [Mass/Vol] 12.7 mg/dL Normal [facility] Comment on above: Performed By: #### L [id number] #### [facility] ([facility]) [address] [place] [address] TRIGLYCERIDESon 12-13-2023 FASTING? UNKNOWN Normal [facility] Comment on above: Performed By: #### L [id number] #### [facility] ([facility]) [address] [place] [address] Magnesium [Mass/Vol] 204 mg/dL High 40-149 [facility] Comment on above: Result Comment: TRIG LYCERIDE REFERENCE RANGE: 20 YEARS AND OLDER CARDIOVASCULAR RISK LESS THAN 150 mg/dL LOW RISK 150 TO 199 mg/dL BORDERLINE RISK 200 mg/dL AND GREATER HIGH RISK Performed By: #### L [id number] #### [facility] [address] [place] [address] BASIC METABOLIC PANELon 11-28 Anion gap [Moles/Vol] 21 mmol/L High 7-20 [facility] Comment on above: Performed By: #### L [id number] #### [facility] ([facility]) [address] [place] [address] Calcium [Mass/Vol] 9.8 mg/dL Normal 8.6-10.3 [facility] Comment on above: Performed By: #### L [id number] #### [facility] [address] [place] [address] Chloride [Moles/Vol] 97 mmol/L Low 98-107 [facility] Comment on above: Performed By: #### L [id number] #### [facility] ([facility]) [address] [place] [address] CO2 [Moles/Vol] 23 mmol/L Normal 21-31 [facility] Comment on above: Performed By: #### L [id number] #### [facility] [address] [place] [address] Creatinine [Mass/Vol] 1.85 mg/dL High 0.60-1.20 [facility] Comment on above: Performed By: #### L [id number] #### [facility] ([facility]) [address] [place] [address] GLOMERULAR FILTRATION RATE ML/MIN/1.73 SQ M.PREDICTED 29.7 mL/min/1.73m*2 Low >60.0 [facility] Comment on above: Result Comment: [facility]???s estimated glomerular filtration rate (eGFR) will no [...] individuals. Performed By: #### L [id number] #### [facility] [address] [place] [address] Glucose [Mass/Vol] 207 mg/dL High 70-100 [facility] Comment on above: Performed By: #### L [id number] #### [facility] ([facility]) [address] [place] [address] Potassium [Moles/Vol] 5.5 mmol/L High 3.5-5.1 [facility] Comment on above: Performed By: #### L [id number] #### [facility] [address] [place] [address] Sodium [Moles/Vol] 135 mmol/L Low 136-145 [facility] Comment on above: Performed By: #### L [id number] #### [facility] ([facility]) [address] [place] [address] Urea nitrogen [Mass/Vol] 78 mg/dL High 7-25 [facility] Comment on above: Performed By: #### L [id number] #### [facility] ([facility]) [address] [place] [address] UREA NITROGEN/CREATININ E (MASS RATIO) IN SER/PLAS 42.2 Normal [facility] Comment on above: Performed By: #### L [id number] #### [facility] [address] [place] [address] CBCon 12-12-2023 Erythrocyte distribution width (RBC) [Ratio] 18.8 % High 11.5-15.0 [facility] Comment on above: Performed By: #### L [id number] #### [facility] [address] [place] [address] ERYTHROCYTE MEAN CORPUSCULAR HEMOGLOBIN CONCENTRATION (G/DL) BY AUTOMATED 32.0 g/dL Normal 32.0-35.0 [facility] Comment on above: Performed By: #### L [id number] #### [facility] [address] [place] [address] Hematocrit (Bld) [Volume fraction] 28.1 % Low 36.0-48.0 [facility] Comment on above: Performed By: #### L [id number] #### [facility] ([facility]) [address] [place] [address] Hemoglobin (Bld) [Mass/Vol] 9.0 g/dL Low 12.0-15.0 [facility] Comment on above: Performed By: #### L [id number] #### [facility] ([facility]) [address] [place] [address] MCH (RBC) [Entitic mass] 30.2 pg Normal 27.0-33.0 [facility] Comment on above: Performed By: #### L [id number] #### [facility] ([facility]) [address] [place] [address] MCV (RBC) [Entitic vol] 94.3 fL Normal 82.0-98.0 [facility] Comment on above: Performed By: #### L [id number] #### [facility] ([facility]) [address] [place] [address] PLATELETS (10*3/UL) IN BLOOD AUTOMATED COUNT 142 10*3/uL Low 150-400 [facility] Comment on above: Performed By: #### L [id number] #### [facility] ([facility]) [address] [place] [address] RBC (Bld) [#/Vol] 2.98 10*6/uL Low 3.80-5.00 [facility] Comment on above: Performed By: #### L [id number] #### [facility] ([facility]) [address] [place] [address] WBC (Bld) [#/Vol] 11.81 10*3/uL High 4.00-10.60 [facility] Comment on above: Performed By: #### L [id number] #### [facility] ([facility]) [address] [place] [address] DIGOXIN LEVELon 12-12-2023 DIGOXIN (NG/ML) IN SER/PLAS 1.6 ng/mL Normal 0.7-2 [facility] Comment on above: Performed By: #### L [id number] #### [facility] ([facility]) [address] [place] [address] MAGNESIUMon 12-12-2023 Magnesium [Mass/Vol] 2.3 mg/dL Normal 1.9-2.7 [facility] Comment on above: Performed By: #### L [id number] #### [facility] ([facility]) [address] [place] [address] PHOSPHORUSon 12-12-2023 Magnesium [Mass/Vol] 2.5 mg/dL Normal 2.5-5.0 [facility] Comment on above: Performed By: #### L [id number] #### [facility] ([facility]) [address] [place] [address] CBC WITH AUTO DIFFERENTIALon 12-11-2023 Basophils (Bld) [#/Vol] 0.05 10*3/uL Normal 0.00-0.20 [facility] Comment on above: Performed By: #### L [id number] #### [facility] ([facility]) [address] [place] [address] Basophils/100 WBC (Bld) 0.4 % Normal 0.0-1.0 [facility] Comment on above: Performed By: #### L [id number] #### [facility] ([facility]) [address] [place] [address] Eosinophils (Bld) [#/Vol] 0.17 10*3/uL Normal 0.00-0.50 [facility] Comment on above: Performed By: #### L [id number] #### [facility] ([facility]) [address] [place] [address] Eosinophils/100 WBC (Bld) 1.4 % Normal 0.0-6.0 [facility] Comment on above: Performed By: #### L [id number] #### [facility] ([facility]) [address] [place] [address] Erythrocyte distribution width (RBC) [Ratio] 18.6 % High 11.5-15.0 [facility] Comment on above: Performed By: #### L [id number] #### [facility] ([facility]) [address] [place] [address] ERYTHROCYTE MEAN CORPUSCULAR HEMOGLOBIN CONCENTRATION (G/DL) BY AUTOMATED 31.8 g/dL Low 32.0-35.0 [facility] Comment on above: Performed By: #### L [id number] #### [facility] [address] [place] [address] Hematocrit (Bld) [Volume fraction] 28.6 % Low 36.0-48.0 [facility] Comment on above: Performed By: #### L [id number] #### [facility] ([facility]) [address] [place] [address] Hemoglobin (Bld) [Mass/Vol] 9.1 g/dL Low 12.0-15.0 [facility] Comment on above: Performed By: #### L [id number] #### [facility] [address] [place] [address] Immature granulocytes (Bld) [#/Vol] 0.08 10*3/uL Normal 0.00-0.20 [facility] Comment on above: Performed By: #### L [id number] #### [facility] ([facility]) [address] [place] [address] Immature granulocytes/100 WBC (Bld) 0.6 % Normal 0.0-1.0 [facility] Comment on above: Performed By: #### L [id number] #### [facility] ([facility]) [address] [place] [address] Lymphocytes (Bld) [#/Vol] 1.64 10*3/uL Normal 1.20-4.00 [facility] Comment on above: Performed By: #### L [id number] #### [facility] ([facility]) [address] [place] [address] Lymphocytes/100 WBC (Bld) 13.0 % Low 20.0-45.0 [facility] Comment on above: Performed By: #### L [id number] #### [facility] ([facility]) [address] [place] [address] MCH (RBC) [Entitic mass] 29.8 pg Normal 27.0-33.0 [facility] Comment on above: Performed By: #### L [id number] #### [facility] ([facility]) [address] [place] [address] MCV (RBC) [Entitic vol] 93.8 fL Normal 82.0-98.0 [facility] Comment on above: Performed By: #### L [id number] #### [facility] ([facility]) [address] [place] [address] Monocytes (Bld) [#/Vol] 1.46 10*3/uL High 0.10-1.00 [facility] Comment on above: Performed By: #### L [id number] #### [facility] ([facility]) [address] [place] [address] Monocytes/100 WBC (Bld) 11.6 % Normal 5.0-12.0 [facility] Comment on above: Performed By: #### L [id number] #### [facility] ([facility]) [address] [place] [address] Neutrophils (Bld) [#/Vol] 9.17 10*3/uL High 1.60-7.60 [facility] Comment on above: Performed By: #### L [id number] #### [facility] ([facility]) [address] [place] [address] Neutrophils/100 WBC (Bld) 73.0 % High 40.0-72.0 [facility] Comment on above: Performed By: #### L [id number] #### [facility] ([facility]) [address] [place] [address] NRBC (PER 100 WBCS) BY AUTOMATED COUNT 0.2 % High 0 [facility] Comment on above: Performed By: #### L [id number] #### [facility] ([facility]) [address] [place] [address] PLATELETS (10*3/UL) IN BLOOD AUTOMATED COUNT 163 10*3/uL Normal 150-400 [facility] Comment on above: Performed By: #### L [id number] #### [facility] ([facility]) [address] [place] [address] RBC (Bld) [#/Vol] 3.05 10*6/uL Low 3.80-5.00 [facility] Comment on above: Performed By: #### L [id number] #### [facility] [address] [place] [address] WBC (Bld) [#/Vol] 12.57 10*3/uL High 4.00-10.60 [facility] Comment on above: Performed By: #### L [id number] #### [facility] ([facility]) [address] [place] [address] COMPREHENSIVE METABOLIC PANE Elver 12-11-2023 Albumin [Mass/Vol] 3.1 g/dL Low 3.5-5.7 [facility] Comment on above: Performed By: #### L [id number] #### [facility] ([facility]) [address] [place] [address] ALP [Catalytic activity/Vol] 180 U/L High 34-104 [facility] Comment on above: Performed By: #### L [id number] #### [facility] ([facility]) [address] [place] [address] ALT [Catalytic activity/Vol] 28 U/L Normal 7-52 [facility] Comment on above: Performed By: #### L [id number] #### [facility] ([facility]) [address] [place] [address] Anion gap [Moles/Vol] 17 mmol/L Normal 7-20 [facility] Comment on above: Performed By: #### L [id number] #### [facility] ([facility]) [address] [place] [address] AST [Catalytic activity/Vol] 27 U/L Normal 13-39 [facility] Comment on above: Performed By: #### L [id number] #### [facility] ([facility]) [address] [place] [address] Bilirubin [Mass/Vol] 0.5 mg/dL Normal 0.3-1.0 [facility] Comment on above: Performed By: #### L [id number] #### [facility] [address] [place] [address] Calcium [Mass/Vol] 10.0 mg/dL Normal 8.6-10.3 [facility] Comment on above: Performed By: #### L [id number] #### [facility] [address] [place] [address] Chloride [Moles/Vol] 96 mmol/L Low 98-107 [facility] Comment on above: Performed By: #### L [id number] #### [facility] ([facility]) [address] [place] [address] CO2 [Moles/Vol] 28 mmol/L Normal 21-31 [facility] Comment on above: Performed By: #### L [id number] #### [facility] ([facility]) [address] [place] [address] Creatinine [Mass/Vol] 1.63 mg/dL High 0.60-1.20 [facility] Comment on above: Performed By: #### L [id number] #### [facility] ([facility]) [address] [place] [address] GLOMERULAR FILTRATION RATE ML/MIN/1.73 SQ M.PREDICTED 34.6 mL/min/1.73m*2 Low >60.0 [facility] Comment on above: Result Comment: [facility]???s estimated glomerular filtration rate (eGFR) will no [...] group of individuals. Performed By: #### L [id number] #### [facility] [address] [place] [address] Glucose [Mass/Vol] 159 mg/dL High 70-100 [facility] Comment on above: Performed By: #### L [id number] #### [facility] ([facility]) [address] [place] [address] Potassium [Moles/Vol] 5.0 mmol/L Normal 3.5-5.1 [facility] Comment on above: Performed By: #### L [id number] #### [facility] ([facility]) [address] [place] [address] Protein [Mass/Vol] 6.6 g/dL Normal 6.0-8.3 [facility] Comment on above: Performed By: #### L [id number] #### [facility] ([facility]) [address] [place] [address] Sodium [Moles/Vol] 136 mmol/L Normal 136-145 [facility] Comment on above: Performed By: #### L [id number] #### [facility] ([facility]) [address] [place] [address] Urea nitrogen [Mass/Vol] 71 mg/dL High 7-25 [facility] Comment on above: Performed By: #### L [id number] #### [facility] ([facility]) [address] [place] [address] UREA NITROGEN/CREATININ E (MASS RATIO) IN SER/PLAS 43.6 Normal [facility] Comment on above: Performed By: #### L [id number] #### [facility] ([facility]) [address] [place] [address] MAGNESIUMon 12-11-2023 Magnesium [Mass/Vol] 2.1 mg/dL Normal 1.9-2.7 [facility] Comment on above: Performed By: #### L [id number] #### [facility] ([facility]) [address] [place] [address] PHOSPHORUSon 12-11-2023 Magnesium [Mass/Vol] 1.7 mg/dL Low 2.5-5.0 [facility] Comment on above: Performed By: #### L [id number] #### [facility] ([facility]) [address] [place] [address] CBCon 12-10-2023 Erythrocyte distribution width (RBC) [Ratio] 18.8 % High 11.5-15.0 [facility] Comment on above: Performed By: #### L [id number] #### [facility] ([facility]) [address] [place] [address] ERYTHROCYTE MEAN CORPUSCULAR HEMOGLOBIN CONCENTRATION (G/DL) BY AUTOMATED 32.1 g/dL Normal 32.0-35.0 [facility] Comment on above: Performed By: #### L [id number] #### [facility] ([facility]) [address] [place] [address] Hematocrit (Bld) [Volume fraction] 29.3 % Low 36.0-48.0 [facility] Comment on above: Performed By: #### L [id number] #### [facility] ([facility]) [address] [place] [address] Hemoglobin (Bld) [Mass/Vol] 9.4 g/dL Low 12.0-15.0 [facility] Comment on above: Performed By: #### L [id number] #### [facility] ([facility]) [address] [place] [address] MCH (RBC) [Entitic mass] 30.3 pg Normal 27.0-33.0 [facility] Comment on above: Performed By: #### L [id number] #### [facility] ([facility]) [address] [place] [address] MCV (RBC) [Entitic vol] 94.5 fL Normal 82.0-98.0 [facility] Comment on above: Performed By: #### L [id number] #### [facility] ([facility]) [address] [place] [address] PLATELETS (10*3/UL) IN BLOOD AUTOMATED COUNT 167 10*3/uL Normal 150-400 [facility] Comment on above: Performed By: #### L [id number] #### [facility] ([facility]) [address] [place] [address] RBC (Bld) [#/Vol] 3.10 10*6/uL Low 3.80-5.00 [facility] Comment on above: Performed By: #### L [id number] #### [facility] ([facility]) [address] [place] [address] WBC (Bld) [#/Vol] 11.42 10*3/uL High 4.00-10.60 [facility] Comment on above: Performed By: #### L [id number] #### [facility] ([facility]) [address] [place] [address] COMPREHENSIVE METABOLIC PANE Elver 12-10-2023 Albumin [Mass/Vol] 3.2 g/dL Low 3.5-5.7 [facility] Comment on above: Performed By: #### L [id number] #### [facility] ([facility]) [address] [place] [address] ALP [Catalytic activity/Vol] 178 U/L High 34-104 [facility] Comment on above: Performed By: #### L [id number] #### [facility] ([facility]) [address] [place] [address] ALT [Catalytic activity/Vol] 26 U/L Normal 7-52 [facility] Comment on above: Performed By: #### L [id number] #### [facility] ([facility]) [address] [place] [address] Anion gap [Moles/Vol] 14 mmol/L Normal 7-20 [facility] Comment on above: Performed By: #### L [id number] #### [facility] ([facility]) [address] [place] [address] AST [Catalytic activity/Vol] 26 U/L Normal 13-39 [facility] Comment on above: Performed By: #### L [id number] #### [facility] ([facility]) [address] [place] [address] Bilirubin [Mass/Vol] 0.5 mg/dL Normal 0.3-1.0 [facility] Comment on above: Performed By: #### L [id number] #### [facility] ([facility]) [address] [place] [address] Calcium [Mass/Vol] 10.4 mg/dL High 8.6-10.3 [facility] Comment on above: Performed By: #### L [id number] #### [facility] ([facility]) [address] [place] [address] Chloride [Moles/Vol] 100 mmol/L Normal 98-107 [facility] Comment on above: Performed By: #### L [id number] #### [facility] ([facility]) [address] [place] [address] CO2 [Moles/Vol] 27 mmol/L Normal 21-31 [facility] Comment on above: Performed By: #### L [id number] #### [facility] ([facility]) [address] [place] [address] Creatinine [Mass/Vol] 1.49 mg/dL High 0.60-1.20 [facility] Comment on above: Performed By: #### L [id number] #### [facility] ([facility]) [address] [place] [address] GLOMERULAR FILTRATION RATE ML/MIN/1.73 SQ M.PREDICTED 38.5 mL/min/1.73m*2 Low >60.0 [facility] Comment on above: Result Comment: [facility]???s estimated glomerular filtration rate (eGFR) will no [...] individuals. Performed By: #### L [id number] #### [facility] ([facility]) [address] [place] [address] Glucose [Mass/Vol] 197 mg/dL High 70-100 [facility] Comment on above: Performed By: #### L [id number] #### [facility] ([facility]) [address] [place] [address] Potassium [Moles/Vol] 5.1 mmol/L Normal 3.5-5.1 [facility] Comment on above: Performed By: #### L [id number] #### [facility] ([facility]) [address] [place] [address] Protein [Mass/Vol] 6.6 g/dL Normal 6.0-8.3 [facility] Comment on above: Performed By: #### L [id number] #### [facility] ([facility]) [address] [place] [address] Sodium [Moles/Vol] 136 mmol/L Normal 136-145 [facility] Comment on above: Performed By: #### L [id number] #### [facility] ([facility]) [address] [place] [address] Urea nitrogen [Mass/Vol] 73 mg/dL High 7-25 [facility] Comment on above: Performed By: #### L [id number] #### [facility] ([facility]) [address] [place] [address] UREA NITROGEN/CREATININ E (MASS RATIO) IN SER/PLAS 49.0 Normal [facility] Comment on above: Performed By: #### L [id number] #### [facility] ([facility]) [address] [place] [address] MAGNESIUMon 12-10-2023 Magnesium [Mass/Vol] 2.2 mg/dL Normal 1.9-2.7 [facility] Comment on above: Performed By: #### L [id number] #### [facility] [address] [place] [address] PHOSPHORUSon 12-10-2023 Magnesium [Mass/Vol] 2.4 mg/dL Low 2.5-5.0 [facility] Comment on above: Performed By: #### L [id number] #### [facility] ([facility]) [address] [place] [address] VITAMIN D 25 HYDROXYon 12-09 CALCIDIOL (25 [place] VITAMIN D3) (NG/ML) IN SER/PLAS 14.1 ng/mL Low 30.0-80.0 [facility] Comment on above: Result Comment: >80. 0 Toxicity possible Performed By: #### L [id number] #### [facility] ([facility]) [address] [place] [address] CBC WITH AUTO DIFFERENTIALon 12-09-2023 Basophils (Bld) [#/Vol] 0.04 10*3/uL Normal 0.00-0.20 [facility] Comment on above: Performed By: #### L [id number] #### [facility] ([facility]) [address] [place] [address] Basophils/100 WBC (Bld) 0.4 % Normal 0.0-1.0 [facility] Comment on above: Performed By: #### L [id number] #### [facility] ([facility]) [address] [place] [address] Eosinophils (Bld) [#/Vol] 0.15 10*3/uL Normal 0.00-0.50 [facility] Comment on above: Performed By: #### L [id number] #### [facility] ([facility]) [address] [place] [address] Eosinophils/100 WBC (Bld) 1.4 % Normal 0.0-6.0 [facility] Comment on above: Performed By: #### L [id number] #### [facility] ([facility]) [address] [place] [address] Erythrocyte distribution width (RBC) [Ratio] 18.4 % High 11.5-15.0 [facility] Comment on above: Performed By: #### L [id number] #### [facility] ([facility] [address] [place] [address] ERYTHROCYTE MEAN CORPUSCULAR HEMOGLOBIN CONCENTRATION (G/DL) BY AUTOMATED 32.6 g/dL Normal 32.0-35.0 [facility] Comment on above: Performed By: #### L [id number] #### [facility] ([facility]) [address] [place] [address] Hematocrit (Bld) [Volume fraction] 29.1 % Low 36.0-48.0 [facility] Comment on above: Performed By: #### L [id number] #### [facility] ([facility]) [address] [place] [address] Hemoglobin (Bld) [Mass/Vol] 9.5 g/dL Low 12.0-15.0 [facility] Comment on above: Performed By: #### L [id number] #### [facility] ([facility]) [address] [place] [address] Immature granulocytes (Bld) [#/Vol] 0.08 10*3/uL Normal 0.00-0.20 [facility] Comment on above: Performed By: #### L [id number] #### [facility] ([facility]) [address] [place] [address] Immature granulocytes/100 WBC (Bld) 0.7 % Normal 0.0-1.0 [facility] Comment on above: Performed By: #### L [id number] #### [facility] [address] [place] [address] Lymphocytes (Bld) [#/Vol] 1.49 10*3/uL Normal 1.20-4.00 [facility] Comment on above: Performed By: #### L [id number] #### [facility] ([facility]) [address] [place] [address] Lymphocytes/100 WBC (Bld) 14.0 % Low 20.0-45.0 [facility] Comment on above: Performed By: #### L [id number] #### [facility] ([facility]) [address] [place] [address] MCH (RBC) [Entitic mass] 30.1 pg Normal 27.0-33.0 [facility] Comment on above: Performed By: #### L [id number] #### [facility] [address] [place] [address] MCV (RBC) [Entitic vol] 92.1 fL Normal 82.0-98.0 [facility] Comment on above: Performed By: #### L [id number] #### [facility] [address] [place] [address] Monocytes (Bld) [#/Vol] 1.23 10*3/uL High 0.10-1.00 [facility] Comment on above: Performed By: #### L [id number] #### [facility] ([facility]) [address] [place] [address] Monocytes/100 WBC (Bld) 11.5 % Normal 5.0-12.0 [facility] Comment on above: Performed By: #### L [id number] #### [facility] ([facility]) [address] [place] [address] Neutrophils (Bld) [#/Vol] 7.69 10*3/uL High 1.60-7.60 [facility] Comment on above: Performed By: #### L [id number] #### [facility] [address] [place] [address] Neutrophils/100 WBC (Bld) 72.0 % Normal 40.0-72.0 [facility] Comment on above: Performed By: #### L [id number] #### [facility] [address] [place] [address] NRBC (PER 100 WBCS) BY AUTOMATED COUNT 0.2 % High 0 [facility] Comment on above: Performed By: #### L [id number] #### [facility] ([facility]) [address] [place] [address] PLATELETS (10*3/UL) IN BLOOD AUTOMATED COUNT 172 10*3/uL Normal 150-400 [facility] Comment on above: Performed By: #### L [id number] #### [facility] ([facility]) [address] [place] [address] RBC (Bld) [#/Vol] 3.16 10*6/uL Low 3.80-5.00 [facility] Comment on above: Performed By: #### L [id number] #### [facility] ([facility]) [address] [place] [address] WBC (Bld) [#/Vol] 10.68 10*3/uL High 4.00-10.60 [facility] Comment on above: Performed By: #### L [id number] #### [facility] ([facility]) [address] [place] [address] COMPREHENSIVE METABOLIC PANE Elver 12-09-2023 Albumin [Mass/Vol] 3.2 g/dL Low 3.5-5.7 [facility] Comment on above: Performed By: #### L [id number] #### [facility] ([facility]) [address] [place] [address] ALP [Catalytic activity/Vol] 152 U/L High 34-104 [facility] Comment on above: Performed By: #### L [id number] #### [facility] ([facility]) [address] [place] [address] ALT [Catalytic activity/Vol] 28 U/L Normal 7-52 [facility] Comment on above: Performed By: #### L [id number] #### [facility] ([facility]) [address] [place] [address] Anion gap [Moles/Vol] 13 mmol/L Normal 7-20 [facility] Comment on above: Performed By: #### L [id number] #### [facility] ([facility]) [address] [place] [address] AST [Catalytic activity/Vol] 27 U/L Normal 13-39 [facility] Comment on above: Performed By: #### L [id number] #### [facility] ([facility]) [address] [place] [address] Bilirubin [Mass/Vol] 0.5 mg/dL Normal 0.3-1.0 [facility] Comment on above: Performed By: #### L [id number] #### [facility] ([facility]) [address] [place] [address] Calcium [Mass/Vol] 10.1 mg/dL Normal 8.6-10.3 [facility] Comment on above: Performed By: #### L [id number] #### [facility] ([facility]) [address] [place] [address] Chloride [Moles/Vol] 99 mmol/L Normal 98-107 [facility] Comment on above: Performed By: #### L [id number] #### [facility] ([facility]) [address] [place] [address] CO2 [Moles/Vol] 27 mmol/L Normal 21-31 [facility] Comment on above: Performed By: #### L [id number] #### [facility] ([facility]) [address] [place] [address] Creatinine [Mass/Vol] 1.37 mg/dL High 0.60-1.20 [facility] Comment on above: Performed By: #### L [id number] #### [facility] ([facility]) [address] [place] [address] GLOMERULAR FILTRATION RATE ML/MIN/1.73 SQ M.PREDICTED 42.6 mL/min/1.73m*2 Low >60.0 [facility] Comment on above: Result Comment: [facility]???s estimated glomerular filtration rate (eGFR) will no [...] individuals. Performed By: #### L [id number] #### [facility] ([facility]) [address] [place] [address] Glucose [Mass/Vol] 227 mg/dL High 70-100 [facility] Comment on above: Performed By: #### L [id number] #### [facility] ([facility]) [address] [place] [address] Potassium [Moles/Vol] 4.8 mmol/L Normal 3.5-5.1 [facility] Comment on above: Performed By: #### L [id number] #### [facility] ([facility]) [address] [place] [address] Protein [Mass/Vol] 6.6 g/dL Normal 6.0-8.3 [facility] Comment on above: Performed By: #### L [id number] #### [facility] ([facility]) [address] [place] [address] Sodium [Moles/Vol] 134 mmol/L Low 136-145 [facility] Comment on above: Performed By: #### L [id number] #### [facility] ([facility]) [address] [place] [address] Urea nitrogen [Mass/Vol] 68 mg/dL High 7-25 [facility] Comment on above: Performed By: #### L [id number] #### [facility] ([facility]) [address] [place] [address] UREA NITROGEN/CREATININ E (MASS RATIO) IN SER/PLAS 49.6 Normal [facility] Comment on above: Performed By: #### L [id number] #### [facility] ([facility]) [address] [place] [address] MAGNESIUMon 12-09-2023 Magnesium [Mass/Vol] 2.1 mg/dL Normal 1.9-2.7 [facility] Comment on above: Performed By: #### L [id number] #### [facility] ([facility]) [address] [place] [address] PHOSPHORUSon 12-09-2023 PHOSPHATE (MG/DL) IN SER/PLAS <1.0 Low 2.5-5.0 [facility] Comment on above: Performed By: #### L [id number] #### [facility] ([facility]) [address] [place] [address] Telephoneon 12-09-2023 Telephone [phone] Cash[employer]al 1955 F Date Provider Department Center 12/09/2023 CEL[facility]UR[facility] Comprehensiv No family history on file Normal [facility] BASIC METABOLIC PANELon 11-28 Anion gap [Moles/Vol] 13 mmol/L Normal 7-20 [facility] Comment on above: Performed By: #### L [id number] #### [facility] [address] [place] [address] Calcium [Mass/Vol] 9.0 mg/dL Normal 8.6-10.3 [facility] Comment on above: Performed By: #### L [id number] #### [facility] [address] [place] [address] Chloride [Moles/Vol] 100 mmol/L Normal 98-107 [facility] Comment on above: Performed By: #### L [id number] #### [facility] [address] [place] [address] CO2 [Moles/Vol] 21 mmol/L Normal 21-31 [facility] Comment on above: Performed By: #### L [id number] #### [facility] ([facility]) [address] [place] [address] Creatinine [Mass/Vol] 1.35 mg/dL High 0.60-1.20 [facility] Comment on above: Performed By: #### L [id number] #### [facility] ([facility]) [address] [place] [address] GLOMERULAR FILTRATION RATE ML/MIN/1.73 SQ M.PREDICTED 43.3 mL/min/1.73m*2 Low >60.0 [facility] Comment on above: Result Comment: [facility]???s estimated glomerular filtration rate (eGFR) will no [...] individuals. Performed By: #### L [id number] #### [facility] ([facility]) [address] [place] [address] Glucose [Mass/Vol] 283 mg/dL High 70-100 [facility] Comment on above: Performed By: #### L [id number] #### [facility] ([facility]) [address] [place] [address] Potassium [Moles/Vol] 4.4 mmol/L Normal 3.5-5.1 [facility] Comment on above: Performed By: #### L [id number] #### [facility] ([facility]) [address] [place] [address] Sodium [Moles/Vol] 130 mmol/L Low 136-145 [facility] Comment on above: Performed By: #### L [id number] #### [facility] ([facility]) [address] [place] [address] Urea nitrogen [Mass/Vol] 70 mg/dL High 7-25 [facility] Comment on above: Performed By: #### L [id number] #### [facility] ([facility]) [address] [place] [address] UREA NITROGEN/CREATININ E (MASS RATIO) IN SER/PLAS 51.9 Normal [facility] Comment on above: Performed By: #### L [id number] #### [facility] ([facility]) [address] [place] [address] CBCon 12-08-2023 Erythrocyte distribution width (RBC) [Ratio] 18.5 % High 11.5-15.0 [facility] Comment on above: Performed By: #### L [id number] #### [facility] ([facility]) [address] [place] [address] ERYTHROCYTE MEAN CORPUSCULAR HEMOGLOBIN CONCENTRATION (G/DL) BY AUTOMATED 33.3 g/dL Normal 32.0-35.0 [facility] Comment on above: Performed By: #### L [id number] #### [facility] ([facility]) [address] [place] [address] Hematocrit (Bld) [Volume fraction] 27.0 % Low 36.0-48.0 [facility] Comment on above: Performed By: #### L [id number] #### [facility] ([facility]) [address] [place] [address] Hemoglobin (Bld) [Mass/Vol] 9.0 g/dL Low 12.0-15.0 [facility] Comment on above: Performed By: #### L [id number] #### [facility] ([facility]) [address] [place] [address] MCH (RBC) [Entitic mass] 30.5 pg Normal 27.0-33.0 [facility] Comment on above: Performed By: #### L [id number] #### [facility] ([facility]) [address] [place] [address] MCV (RBC) [Entitic vol] 91.5 fL Normal 82.0-98.0 [facility] Comment on above: Performed By: #### L [id number] #### [facility] [address] [place] [address] PLATELETS (10*3/UL) IN BLOOD AUTOMATED COUNT 173 10*3/uL Normal 150-400 [facility] Comment on above: Performed By: #### L [id number] #### [facility] ([facility]) [address] [place] [address] RBC (Bld) [#/Vol] 2.95 10*6/uL Low 3.80-5.00 [facility] Comment on above: Performed By: #### L [id number] #### [facility] ([facility]) [address] [place] [address] WBC (Bld) [#/Vol] 10.45 10*3/uL Normal 4.00-10.60 [facility] Comment on above: Performed By: #### L [id number] #### [facility] ([facility]) [address] [place] [address] TROPONIN Ion 12-08-2023 Troponin I.cardiac [Mass/Vol] 0.04 ng/mL Normal 0.00-0.04 [facility] Comment on above: Performed By: #### L [id number] #### [facility] ([facility]) [address] [place] [address] Troponin I.cardiac [Mass/Vol] 0.04 ng/mL Normal 0.00-0.04 [facility] Comment on above: Performed By: #### L [id number] #### [facility] ([facility]) [address] [place] [address] BASIC METABOLIC PANELon 03-0 Anion gap [Moles/Vol] 14 mmol/L Normal 7-20 [facility] Comment on above: Performed By: #### L [id number] #### [facility] ([facility]) [address] [place] [address] Calcium [Mass/Vol] 9.0 mg/dL Normal 8.6-10.3 [facility] Comment on above: Performed By: #### L [id number] #### [facility] ([facility]) [address] [place] [address] Chloride [Moles/Vol] 103 mmol/L Normal 98-107 [facility] Comment on above: Performed By: #### L [id number] #### [facility] ([facility]) [address] [place] [address] CO2 [Moles/Vol] 20 mmol/L Low 21-31 [facility] Comment on above: Performed By: #### L [id number] #### [facility] ([facility]) [address] [place] [address] Creatinine [Mass/Vol] 1.38 mg/dL High 0.60-1.20 [facility] Comment on above: Performed By: #### L [id number] #### [facility] ([facility]) [address] [place] [address] GLOMERULAR FILTRATION RATE ML/MIN/1.73 SQ M.PREDICTED 42.2 mL/min/1.73m*2 Low >60.0 [facility] Comment on above: Result Comment: [facility]???s estimated glomerular filtration rate (eGFR) will no [...] individuals. Performed By: #### L [id number] #### [facility] ([facility]) [address] [place] [address] Glucose [Mass/Vol] 175 mg/dL High 70-100 [facility] Comment on above: Performed By: #### L [id number] #### [facility] ([facility]) [address] [place] [address] Potassium [Moles/Vol] 4.2 mmol/L Normal 3.5-5.1 [facility] Comment on above: Performed By: #### L [id number] #### [facility] ([facility]) [address] [place] [address] Sodium [Moles/Vol] 133 mmol/L Low 136-145 [facility] Comment on above: Performed By: #### L [id number] #### [facility] ([facility]) [address] [place] [address] Urea nitrogen [Mass/Vol] 70 mg/dL High 7-25 [facility] Comment on above: Performed By: #### L [id number] #### [facility] [address] [place] [address] UREA NITROGEN/CREATININ E (MASS RATIO) IN SER/PLAS 50.7 Normal [facility] Comment on above: Performed By: #### L [id number] #### [facility] [address] [place] [address] CBCon 12-07-2023 Erythrocyte distribution width (RBC) [Ratio] 18.3 % High 11.5-15.0 [facility] Comment on above: Performed By: #### L [id number] #### [facility]) [address] [place] [address] ERYTHROCYTE MEAN CORPUSCULAR HEMOGLOBIN CONCENTRATION (G/DL) BY AUTOMATED 32.3 g/dL Normal 32.0-35.0 [facility] Comment on above: Performed By: #### L [id number] #### [facility] [address] [place] [address] Hematocrit (Bld) [Volume fraction] 28.8 % Low 36.0-48.0 [facility] Comment on above: Performed By: #### L [id number] #### [facility] ([facility]) [address] [place] [address] Hemoglobin (Bld) [Mass/Vol] 9.3 g/dL Low 12.0-15.0 [facility] Comment on above: Performed By: #### L [id number] #### [facility] ([facility]) [address] [place] [address] MCH (RBC) [Entitic mass] 29.8 pg Normal 27.0-33.0 [facility] Comment on above: Performed By: #### L [id number] #### [facility] ([facility]) [address] [place] [address] MCV (RBC) [Entitic vol] 92.3 fL Normal 82.0-98.0 [facility] Comment on above: Performed By: #### L [id number] #### [facility] ([facility]) [address] [place] [address] PLATELETS (10*3/UL) IN BLOOD AUTOMATED COUNT 189 10*3/uL Normal 150-400 [facility] Comment on above: Performed By: #### L [id number] #### [facility] ([facility]) [address] [place] [address] RBC (Bld) [#/Vol] 3.12 10*6/uL Low 3.80-5.00 [facility] Comment on above: Performed By: #### L [id number] #### [facility] ([facility]) [address] [place] [address] WBC (Bld) [#/Vol] 13.21 10*3/uL High 4.00-10.60 [facility] Comment on above: Performed By: #### L [id number] #### [facility] ([facility]) [address] [place] [address] PROCALCITONIN TESTon 024 PROCALCITONIN IN BLOOD 0.48 ng/mL High 0.00-0.10 [facility] Comment on above: Result Comment: Susp ected [...] and initial PCT<0.5ng/mL Performed By: #### L [id number] #### [facility] ([facility]) [address] [place] [address] CBC WITH AUTO DIFFERENTIALon 12-06-2023 Basophils (Bld) [#/Vol] 0.05 10*3/uL Normal 0.00-0.20 [facility] Comment on above: Performed By: #### L [id number] #### [facility] ([facility]) [address] [place] [address] Basophils/100 WBC (Bld) 0.3 % Normal 0.0-1.0 [facility] Comment on above: Performed By: #### L [id number] #### [facility] ([facility]) [address] [place] [address] Eosinophils (Bld) [#/Vol] 0.17 10*3/uL Normal 0.00-0.50 [facility] Comment on above: Performed By: #### L [id number] #### [facility] ([facility]) [address] [place] [address] Eosinophils/100 WBC (Bld) 1.1 % Normal 0.0-6.0 [facility] Comment on above: Performed By: #### L [id number] #### [facility] ([facility]) [address] [place] [address] Erythrocyte distribution width (RBC) [Ratio] 18.2 % High 11.5-15.0 [facility] Comment on above: Performed By: #### L [id number] #### [facility] [address] [place] [address] ERYTHROCYTE MEAN CORPUSCULAR HEMOGLOBIN CONCENTRATION (G/DL) BY AUTOMATED 33.6 g/dL Normal 32.0-35.0 [facility] Comment on above: Performed By: #### L [id number] #### [facility] [address] [place] [address] Hematocrit (Bld) [Volume fraction] 28.6 % Low 36.0-48.0 [facility] Comment on above: Performed By: #### L [id number] #### [facility] [address] [place] [address] Hemoglobin (Bld) [Mass/Vol] 9.6 g/dL Low 12.0-15.0 [facility] Comment on above: Performed By: #### L [id number] #### [facility] ([facility]) [address] [place] [address] Immature granulocytes (Bld) [#/Vol] 0.09 10*3/uL Normal 0.00-0.20 [facility] Comment on above: Performed By: #### L [id number] #### [facility] ([facility]) [address] [place] [address] Immature granulocytes/100 WBC (Bld) 0.6 % Normal 0.0-1.0 [facility] Comment on above: Performed By: #### L [id number] #### [facility] ([facility]) [address] [place] [address] Lymphocytes (Bld) [#/Vol] 1.61 10*3/uL Normal 1.20-4.00 [facility] Comment on above: Performed By: #### L [id number] #### [facility] ([facility]) [address] [place] [address] Lymphocytes/100 WBC (Bld) 10.7 % Low 20.0-45.0 [facility] Comment on above: Performed By: #### L [id number] #### [facility] ([facility]) [address] [place] [address] MCH (RBC) [Entitic mass] 30.1 pg Normal 27.0-33.0 [facility] Comment on above: Performed By: #### L [id number] #### [facility] ([facility]) [address] [place] [address] MCV (RBC) [Entitic vol] 89.7 fL Normal 82.0-98.0 [facility] Comment on above: Performed By: #### L [id number] #### [facility] ([facility]) [address] [place] [address] Monocytes (Bld) [#/Vol] 1.22 10*3/uL High 0.10-1.00 [facility] Comment on above: Performed By: #### L [id number] #### [facility] ([facility]) [address] [place] [address] Monocytes/100 WBC (Bld) 8.1 % Normal 5.0-12.0 [facility] Comment on above: Performed By: #### L [id number] #### [facility] ([facility]) [address] [place] [address] Neutrophils (Bld) [#/Vol] 11.94 10*3/uL High 1.60-7.60 [facility] Comment on above: Performed By: #### L [id number] #### [facility] ([facility]) [address] [place] [address] Neutrophils/100 WBC (Bld) 79.2 % High 40.0-72.0 [facility] Comment on above: Performed By: #### L [id number] #### [facility] [address] [place] [address] NRBC (PER 100 WBCS) BY AUTOMATED COUNT 0.0 % Normal 0 [facility] Comment on above: Performed By: #### L [id number] #### [facility] [address] [place] [address] PLATELETS (10*3/UL) IN BLOOD AUTOMATED COUNT 190 10*3/uL Normal 150-400 [facility] Comment on above: Performed By: #### L [id number] #### [facility] ([facility]) [address] [place] [address] RBC (Bld) [#/Vol] 3.19 10*6/uL Low 3.80-5.00 [facility] Comment on above: Performed By: #### L [id number] #### [facility] ([facility]) [address] [place] [address] WBC (Bld) [#/Vol] 15.08 10*3/uL High 4.00-10.60 [facility] Comment on above: Performed By: #### L [id number] #### [facility] ([facility]) [address] [place] [address] COMPREHENSIVE METABOLIC PANE [place] 12-06-2023 Albumin [Mass/Vol] 3.3 g/dL Low 3.5-5.7 [facility] Comment on above: Performed By: #### L [id number] #### [facility] ([facility]) [address] [place] [address] ALP [Catalytic activity/Vol] 176 U/L High 34-104 [facility] Comment on above: Performed By: #### L [id number] #### [facility] ([facility]) [address] [place] [address] ALT [Catalytic activity/Vol] 27 U/L Normal 7-52 [facility] Comment on above: Performed By: #### L [id number] #### [facility] ([facility]) [address] [place] [address] Anion gap [Moles/Vol] 15 mmol/L Normal 7-20 [facility] Comment on above: Performed By: #### L [id number] #### [facility] ([facility]) [address] [place] [address] AST [Catalytic activity/Vol] 25 U/L Normal 13-39 [facility] Comment on above: Performed By: #### L [id number] #### [facility] ([facility]) [address] [place] [address] Bilirubin [Mass/Vol] 0.7 mg/dL Normal 0.3-1.0 [facility] Comment on above: Performed By: #### L [id number] #### [facility] [address] [place] [address] Calcium [Mass/Vol] 8.1 mg/dL Low 8.6-10.3 [facility] Comment on above: Performed By: #### L [id number] #### [facility] ([facility]) [address] [place] [address] Chloride [Moles/Vol] 103 mmol/L Normal 98-107 [facility] Comment on above: Performed By: #### L [id number] #### [facility] ([facility]) [address] [place] [address] CO2 [Moles/Vol] 19 mmol/L Low 21-31 [facility] Comment on above: Performed By: #### L [id number] #### [facility] ([facility]) [address] [place] [address] Creatinine [Mass/Vol] 1.30 mg/dL High 0.60-1.20 [facility] Comment on above: Performed By: #### L [id number] #### [facility] [address] [place] [address] GLOMERULAR FILTRATION RATE ML/MIN/1.73 SQ M.PREDICTED 45.4 mL/min/1.73m*2 Low >60.0 [facility] Comment on above: Result Comment: [facility]???s estimated glomerular filtration rate (eGFR) will no [...] individuals. Performed By: #### L [id number] #### [facility] ([facility]) [address] [place] [address] Glucose [Mass/Vol] 208 mg/dL High 70-100 [facility] Comment on above: Performed By: #### L [id number] #### [facility] ([facility]) [address] [place] [address] Potassium [Moles/Vol] 3.7 mmol/L Normal 3.5-5.1 [facility] Comment on above: Performed By: #### L [id number] #### [facility] ([facility]) [address] [place] [address] Protein [Mass/Vol] 6.6 g/dL Normal 6.0-8.3 [facility] Comment on above: Performed By: #### L [id number] #### [facility] ([facility]) [address] [place] [address] Sodium [Moles/Vol] 133 mmol/L Low 136-145 [facility] Comment on above: Performed By: #### L [id number] #### [facility] ([facility]) [address] [place] [address] Urea nitrogen [Mass/Vol] 60 mg/dL High 7-25 [facility] Comment on above: Performed By: #### L [id number] #### [facility] ([facility]) [address] [place] [address] UREA NITROGEN/CREATININ E (MASS RATIO) IN SER/PLAS 46.2 Normal [facility] Comment on above: Performed By: #### L [id number] #### [facility] ([facility]) [address] [place] [address] MAGNESIUMon 03-08-2024 Magnesium [Mass/Vol] 1.9 mg/dL Normal 1.9-2.7 [facility] Comment on above: Performed By: #### L [id number] #### [facility] ([facility]) [address] [place] [address] PHOSPHORUSon 12-06-2023 Magnesium [Mass/Vol] 3.2 mg/dL Normal 2.5-5.0 [facility] Comment on above: Performed By: #### L [id number] #### [facility] ([facility]) [address] [place] [address] PREALBUMINon 12-06-2023 Prealbumin [Mass/Vol] 19.7 mg/dL Normal [facility] Comment on above: Performed By: #### L [id number] #### [facility] ([facility]) [address] [place] [address] TRIGLYCERIDESon 12-06-2023 FASTING? Unknown Normal [facility] Comment on above: Performed By: #### L [id number] #### [facility] ([facility]) [address] [place] [address] Magnesium [Mass/Vol] 271 mg/dL High 40-149 [facility] Comment on above: Result Comment: TRIG LYCERIDE REFERENCE RANGE: 20 YEARS AND OLDER CARDIOVASCULAR RISK LESS THAN 150 mg/dL LOW RISK 150 TO 199 mg/dL BORDERLINE RISK 200 mg/dL AND GREATER HIGH RISK Performed By: #### L [id number] #### [facility] ([facility]) [address] [place] [address] CBC WITH AUTO DIFFERENTIALon 12-05-2023 Basophils (Bld) [#/Vol] 0.04 10*3/uL Normal 0.00-0.20 [facility] Comment on above: Performed By: #### L [id number] #### [facility] ([facility]) [address] [place] [address] Basophils/100 WBC (Bld) 0.3 % Normal 0.0-1.0 [facility] Comment on above: Performed By: #### L [id number] #### [facility] ([facility]) [address] [place] [address] Eosinophils (Bld) [#/Vol] 0.13 10*3/uL Normal 0.00-0.50 [facility] Comment on above: Performed By: #### L [id number] #### [facility] ([facility]) [address] [place] [address] Eosinophils/100 WBC (Bld) 0.9 % Normal 0.0-6.0 [facility] Comment on above: Performed By: #### L [id number] #### [facility] ([facility]) [address] [place] [address] Erythrocyte distribution width (RBC) [Ratio] 18.1 % High 11.5-15.0 [facility] Comment on above: Performed By: #### L [id number] #### [facility] ([facility]) [address] [place] [address] ERYTHROCYTE MEAN CORPUSCULAR HEMOGLOBIN CONCENTRATION (G/DL) BY AUTOMATED 33.3 g/dL Normal 32.0-35.0 [facility] Comment on above: Performed By: #### L [id number] #### [facility] ([facility]) [address] [place] [address] Hematocrit (Bld) [Volume fraction] 28.5 % Low 36.0-48.0 [facility] Comment on above: Performed By: #### L [id number] #### [facility] ([facility]) [address] [place] [address] Hemoglobin (Bld) [Mass/Vol] 9.5 g/dL Low 12.0-15.0 [facility] Comment on above: Performed By: #### L [id number] #### [facility] ([facility]) [address] [place] [address] Immature granulocytes (Bld) [#/Vol] 0.08 10*3/uL Normal 0.00-0.20 [facility] Comment on above: Performed By: #### L [id number] #### [facility] ([facility]) [address] [facility] [place] [address] Immature granulocytes/100 WBC (Bld) 0.6 % Normal 0.0-1.0 [facility] Comment on above: Performed By: #### L [id number] #### [facility] [address] [place] [address] Lymphocytes (Bld) [#/Vol] 1.91 10*3/uL Normal 1.20-4.00 [facility] Comment on above: Performed By: #### L [id number] #### [facility] ([facility]) [address] [place] [address] Lymphocytes/100 WBC (Bld) 13.8 % Low 20.0-45.0 [facility] Comment on above: Performed By: #### L [id number] #### [facility] ([facility]) [address] [place] [address] MCH (RBC) [Entitic mass] 30.0 pg Normal 27.0-33.0 [facility] Comment on above: Performed By: #### L [id number] #### [facility] ([facility]) [address] [place] [address] MCV (RBC) [Entitic vol] 89.9 fL Normal 82.0-98.0 [facility] Comment on above: Performed By: #### L [id number] #### [facility] ([facility]) [address] [place] [address] Monocytes (Bld) [#/Vol] 1.24 10*3/uL High 0.10-1.00 [facility] Comment on above: Performed By: #### L [id number] #### [facility] ([facility]) [address] [place] [address] Monocytes/100 WBC (Bld) 9.0 % Normal 5.0-12.0 [facility] Comment on above: Performed By: #### L [id number] #### [facility] ([facility]) [address] [place] [address] Neutrophils (Bld) [#/Vol] 10.44 10*3/uL High 1.60-7.60 [facility] Comment on above: Performed By: #### L [id number] #### [facility] ([facility]) [address] [place] [address] Neutrophils/100 WBC (Bld) 75.4 % High 40.0-72.0 [facility] Comment on above: Performed By: #### L [id number] #### [facility] ([facility]) [address] [place] [address] NRBC (PER 100 WBCS) BY AUTOMATED COUNT 0.0 % Normal 0 [facility] Comment on above: Performed By: #### L [id number] #### [facility] ([facility]) [address] [place] [address] PLATELETS (10*3/UL) IN BLOOD AUTOMATED COUNT 167 10*3/uL Normal 150-400 [facility] Comment on above: Performed By: #### L [id number] #### [facility] ([facility]) [address] [place] [address] RBC (Bld) [#/Vol] 3.17 10*6/uL Low 3.80-5.00 [facility] Comment on above: Performed By: #### L [id number] #### [facility] ([facility]) [address] [place] [address] WBC (Bld) [#/Vol] 13.84 10*3/uL High 4.00-10.60 [facility] Comment on above: Performed By: #### L [id number] #### [facility] [address] [place] [address] COMPREHENSIVE METABOLIC PANE Elver 12-05-2023 Albumin [Mass/Vol] 3.2 g/dL Low 3.5-5.7 [facility] Comment on above: Performed By: #### L [id number] #### [facility] [address] [place] [address] ALP [Catalytic activity/Vol] 160 U/L High 34-104 [facility] Comment on above: Performed By: #### L [id number] #### [facility] ([facility]) [address] [place] [address] ALT [Catalytic activity/Vol] 26 U/L Normal 7-52 [facility] Comment on above: Performed By: #### L [id number] #### [facility] ([facility]) [address] [place] [address] Anion gap [Moles/Vol] 14 mmol/L Normal 7-20 [facility] Comment on above: Performed By: #### L [id number] #### [facility] ([facility]) [address] [place] [address] AST [Catalytic activity/Vol] 21 U/L Normal 13-39 [facility] Comment on above: Performed By: #### L [id number] #### [facility] ([facility]) [address] [place] [address] Bilirubin [Mass/Vol] 0.7 mg/dL Normal 0.3-1.0 [facility] Comment on above: Performed By: #### L [id number] #### [facility] ([facility]) [address] [place] [address] Calcium [Mass/Vol] 8.2 mg/dL Low 8.6-10.3 [facility] Comment on above: Performed By: #### L [id number] #### [facility] ([facility]) [address] [place] [address] Chloride [Moles/Vol] 102 mmol/L Normal 98-107 [facility] Comment on above: Performed By: #### L [id number] #### [facility] [address] [place] [address] CO2 [Moles/Vol] 22 mmol/L Normal 21-31 [facility] Comment on above: Performed By: #### L [id number] #### [facility] [address] [place] [address] Creatinine [Mass/Vol] 1.17 mg/dL Normal 0.60-1.20 [facility] Comment on above: Performed By: #### L [id number] #### [facility] ([facility]) [address] [place] [address] GLOMERULAR FILTRATION RATE ML/MIN/1.73 SQ M.PREDICTED 51.5 mL/min/1.73m*2 Low >60.0 [facility] Comment on above: Result Comment: [facility]???s estimated glomerular filtration rate (eGFR) will no [...] individuals. Performed By: #### L [id number] #### [facility] ([facility]) [address] [place] [address] Glucose [Mass/Vol] 120 mg/dL High 70-100 [facility] Comment on above: Performed By: #### L [id number] #### [facility] ([facility]) [address] [place] [address] Potassium [Moles/Vol] 3.9 mmol/L Normal 3.5-5.1 [facility] Comment on above: Performed By: #### L [id number] #### [facility] ([facility]) [address] [place] [address] Protein [Mass/Vol] 6.5 g/dL Normal 6.0-8.3 [facility] Comment on above: Performed By: #### L [id number] #### [facility] ([facility]) [address] [place] [address] Sodium [Moles/Vol] 134 mmol/L Low 136-145 [facility] Comment on above: Performed By: #### L [id number] #### [facility] [address] [place] [address] Urea nitrogen [Mass/Vol] 57 mg/dL High 7-25 [facility] Comment on above: Performed By: #### L [id number] #### [facility] ([facility]) [address] [place] [address] UREA NITROGEN/CREATININ E (MASS RATIO) IN SER/PLAS 48.7 Normal [facility] Comment on above: Performed By: #### L [id number] #### [facility] ([facility]) [address] [place] [address] MAGNESIUMon 12-05-2023 Magnesium [Mass/Vol] 1.9 mg/dL Normal 1.9-2.7 [facility] Comment on above: Performed By: #### L [id number] #### [facility] ([facility]) [address] [place] [address] PHOSPHORUSon 12-05-2023 Magnesium [Mass/Vol] 3.2 mg/dL Normal 2.5-5.0 [facility] Comment on above: Performed By: #### L [id number] #### [facility] ([facility]) [address] [place] [address] PREALBUMINon 12-05-2023 Prealbumin [Mass/Vol] 24.8 mg/dL Normal [facility] Comment on above: Performed By: #### L [id number] #### [facility] ([facility]) [address] [place] [address] URINALYSISon 12-05-2023 BILIRUBIN, TOTAL PRESENCE IN URINE Negative Normal Negative [facility] Comment on above: Performed By: #### L [id number] #### [facility] ([facility]) [address] [place] [address] Clarity (U) Slightly Cloudy Abnormal Clear [facility] Comment on above: Performed By: #### L [id number] #### [facility] ([facility]) [address] [place] [address] Color (U) Yellow Normal Yellow [facility] Comment on above: Performed By: #### L [id number] #### [facility] ([facility]) [address] [place] [address] Glucose (U) [Mass/Vol] Negative Normal Negative [facility] Comment on above: Performed By: #### L [id number] #### [facility] ([facility]) [address] [place] [address] HEMOGLOBIN PRESENCE IN URINE Negative Normal Negative [facility] Comment on above: Performed By: #### L [id number] #### [facility] ([facility]) [address] [place] [address] Ketones Ql (U) Negative Normal Negative [facility] Comment on above: Performed By: #### L [id number] #### [facility] ([facility]) [address] [place] [address] LEUKOCYTE ESTERASE PRESENCE IN URINE BY TEST STRIP Moderate Abnormal Negative [facility] Comment on above: Performed By: #### L [id number] #### [facility] ([facility]) [address] [place] [address] NITRITE PRESENCE IN URINE Negative Normal Negative [facility] Comment on above: Performed By: #### L [id number] #### [facility] ([facility]) [address] [place] [address] pH (U) 7.0 [pH] Normal 5.0-8.0 [facility] Comment on above: Performed By: #### L [id number] #### [facility] ([facility]) [address] [place] [address] Protein (U) [Mass/Vol] Negative Normal Negative [facility] Comment on above: Performed By: #### L [id number] #### [facility] ([facility]) [address] [place] [address] Specific gravity (U) [Rel density] 1.010 Low 1.015-1.020 [facility] Comment on above: Performed By: #### L [id number] #### [facility] ([facility]) [address] [place] [address] URINALYSIS MICROSCOPICon CASTS IN URINE Present Abnormal None Seen [facility] Comment on above: Performed By: #### L [id number] #### [facility] ([facility]) [address] [place] [address] CRYSTALS IN [facility]INE Normal [facility] Comment on above: Performed By: #### L [id number] #### [facility] [address] [place] [address] HYALINE CASTS /LPF IN URINE SEDIMENT BY MICROSCOPY 31 /LPF High <1 [facility] Comment on above: Performed By: #### L [id number] #### [facility] ([facility]) [address] [place] [address] MUCUS (#/HPF) IN URINE SEDIMENT Few Normal None Seen, Occasional, Few [facility] Comment on above: Performed By: #### L [id number] #### [facility] ([facility]) [address] [place] [address] RBC (#/HPF) IN URINE SEDIMENT 21-50 Abnormal None Seen [facility] Comment on above: Performed By: #### L [id number] #### [facility] ([facility]) [address] [place] [address] SQUAMOUS EPITHELIAL CELLS (#/HPF) IN URINE SEDIMENT Moderate Abnormal None Seen, Occasional [facility] Comment on above: Performed By: #### L [id number] #### [facility] ([facility]) [address] [place] [address] WBC (LEUKOCYTE) (#/HPF) IN URINE SEDIMENT 21-50 Abnormal None Seen [facility] Comment on above: Performed By: #### L [id number] #### [facility] ([facility]) [address] [place] [address] YEAST, BUDDING (#/HPF) IN URINE Many Abnormal None Seen [facility] Comment on above: Performed By: #### L [id number] #### [facility] ([facility]) [address] [place] [address] URINE CULTURE, ROUTINEon Bacteria identified Cx Nom (U) DEBRA ALBICANS Abnormal [facility] Comment on above: Result Comment: >100 ,000 CFU/Ml Debra albicans Presumptive Identification Performed By: #### L [id number] #### [facility] ([facility]) [address] [place] [address] CBC AND AUTO DIFFon 12-04-19 ABSOLUTE BASOPHIL 0.1 X10E9/L Normal 0.0-0.2 [facility] Comment on above: Performed By: #### Dru SHEA CMP, [id number] ####[facility] ([id number])[address], [place] [address] ABSOLUTE NEUTROPHIL 8.9 X10E9/L High 1.5-6.6 [facility] Comment on above: Performed By: #### Dru SHEA CMP, ####[facility] ([id number])[address], [address], [place] [address] Basophils/100 WBC (Bld) 0.7 % Normal [facility] Comment on above: Performed By: #### Dru SHEA, CMP, ####[facility] ([id number])[address], [address], [place] [address] Eosinophils (Bld) [#/Vol] 0.1 10*3/uL Normal 0.0-0.4 [facility] Comment on above: Performed By: #### C BCA, CMP, ####[facility] ([id number])[address], [address], [place] [address] Eosinophils/100 WBC (Bld) 1.0 % Normal [facility] Comment on above: Performed By: #### C BCA, CMP, ####[facility] ([id number])[address] [place] [address] Erythrocyte distribution width (RBC) [Ratio] 19.3 % High 11.5-15.0 [facility] Comment on above: Performed By: #### Dru SHEA CMP, ####[facility] ([id number])[address] [address] Hematocrit (Bld) [Volume fraction] 27.1 % Low 35-47 [facility] Comment on above: Performed By: #### Dru SHEA CMP, ####[facility] ([id number])[address] [place] [address] Hemoglobin (Bld) [Mass/Vol] 9.0 g/dL Low 11.7-15.5 [facility] Comment on above: Performed By: #### Dru SHEA CMP, ####[facility] ([id number])[address] [address] [place] [address] Lymphocytes (Bld) [#/Vol] 1.6 10*3/uL Normal 1.0-3.5 [facility] Comment on above: Performed By: #### Dru SHEA CMP, ####[facility] ([id number])[address] [address] [address] Lymphocytes/100 WBC (Bld) 13.3 % Normal [facility] Comment on above: Performed By: #### Dru SHEA CMP, ####[facility] ([id number])[address] [address], [place] [address] MCH (RBC) [Entitic mass] 29.7 pg Normal 27-34 [facility] Comment on above: Performed By: #### Dru SHEA CMP, ####[facility] ([id number])[address] [place] [address] MCHC (RBC) [Mass/Vol] 33.0 g/dL Normal 32-36 [facility] Comment on above: Performed By: #### C TOO SHEA, ####[facility] ([id number])[address] [address] MCV (RBC) [Entitic vol] 90 fL Normal 80-100 [facility] Comment on above: Performed By: #### Dru SHEA, CMP, ####[facility] ([id number])[address], [place] [address] Monocytes (Bld) [#/Vol] 1.1 10*3/uL High 0-0.9 [facility] Comment on above: Performed By: #### Dru SHEA CMP, ####[facility] ([id number])[address], [place] [address] Monocytes/100 WBC (Bld) 9.3 % Normal [facility] Comment on above: Performed By: #### Dru SHEA, CMP, ####[facility] ([id number])[address], [place] [address] Neutrophils/100 WBC (Bld) 75.7 % Normal [facility] Comment on above: Performed By: #### Dru SHEA CMP, ####[facility] ([id number])[address] [address] Platelet mean volume (Bld) [Entitic vol] 10.6 fL Normal 7-12 [facility] Comment on above: Performed By: #### Dru SHEA, CMP, ####[facility] ([id number])[address] [address] Platelets (Bld) [#/Vol] 137 10*3/uL Low 150-450 [facility] Comment on above: Performed By: #### Dru SHEA, CMP, ####[facility] ([id number])[address] [place] [address] RBC COUNT 3.02 X10E12/L Low 3.80-5.20 [facility] Comment on above: Performed By: #### C BCA, CMP, ####[facility] ([id number])[address], [place] [address] WBC (Bld) [#/Vol] 11.8 10*3/uL High 4.0-11.0 [facility] Comment on above: Performed By: #### C BCA, CMP, ####[facility] ([id number])[address] [place] [address] COMPREHENSIVE METABOLIC PANE Elver 12-04-2023 Albumin [Mass/Vol] 3.1 g/dL Low 3.2-5.3 [facility] Comment on above: Performed By: #### C BCA, CMP, ####[facility] ([id number])[address] [address] ALP [Catalytic activity/Vol] 153 U/L High 39-130 [facility] Comment on above: Performed By: #### C BCA, CMP, ####[facility] [id number], [address] [address] ALT [Catalytic activity/Vol] 27 U/L Normal 0-31 [facility] Comment on above: Performed By: #### C BCA, CMP, ####[facility] [id number], [address] [address] Anion gap [Moles/Vol] 11 mmol/L Normal 5-15 [facility] Comment on above: Performed By: #### C BCA, CMP, ####[facility] ([id number])[address], [place] [address] AST [Catalytic activity/Vol] 21 U/L Normal 0-41 [facility] Comment on above: Performed By: #### C BCA, CMP, [id number] ####[facility] ([id number])[address], [place] [address] Bilirubin [Mass/Vol] 0.6 mg/dL Normal 0.3-1.2 [facility] Comment on above: Performed By: #### C BCA, CMP, ####[facility] ([id number])[address], [address], [place] [address] Calcium [Mass/Vol] 8.6 mg/dL Normal 8.5-10.5 [facility] Comment on above: Performed By: #### C BCA, CMP, ####[facility] ([id number])[address], [address], [place] [address] Chloride [Moles/Vol] 102 mmol/L Normal 98-109 [facility] Comment on above: Performed By: #### C BCA, CMP, ####[facility] ([id number])[address], [address], [place] [address] CO2 [Moles/Vol] 21 mmol/L Low 22-32 [facility] Comment on above: Performed By: #### C BCA, CMP, ####[facility] ([id number])[address], [address], [place] [address] Creatinine [Mass/Vol] 1.17 mg/dL High 0.40-1.00 [facility] Comment on above: Result Comment: METH OD TRACEABLE TO IDMS STANDARD Performed By: #### C BCA, CMP, ####[facility] ([id number])[address], [place] [address] GFR/1.73 sq M.predicted among non-blacks MDRD (S/P/Bld) [Vol rate/Area] 51 mL/min/{1.73_m2} Low >59 [facility] Comment on above: Result Comment: Repo rted eGFR is based on theCKD-EPI 2020 equation that doesnot use a race coefficient. Performed By: #### C TOO SHEA, ####[facility] ([id number])[address] [address] [place] [address] Glucose [Mass/Vol] 228 mg/dL High 65-99 [facility] Comment on above: Performed By: #### Dru SHEA CMP, ####[facility] ([id number])[address] [address], [place] [address] Potassium [Moles/Vol] 4.1 mmol/L Normal 3.5-5.0 [facility] Comment on above: Performed By: #### Dru SHEA [facility], ####[facility] ([id number])[address] [address], [place] [address] Protein [Mass/Vol] 6.6 g/dL Normal 6.0-8.0 [facility] Comment on above: Performed By: #### Dru SHEA [facility], ####[facility] ([id number])[address] [address] [place] [address] Sodium [Moles/Vol] 134 mmol/L Normal 134-146 [facility] Comment on above: Performed By: #### Dru SHEA CMP, ####[facility] ([id number])[address] [address] [address] Urea nitrogen [Mass/Vol] 55 mg/dL High 5-27 [facility] Comment on above: Performed By: #### Dru SHEA CMP, ####[facility] ([id number])[address], [address] [place] [address] Glucose Glucometer (BldC) [M ass/Vol]on 12-04-2023 Glucose [Mass/Vol] 273 mg/dL High 65-99 [facility] Glucose [Mass/Vol] 252 mg/dL High 65-99 [facility] Glucose [Mass/Vol] 258 mg/dL High 65-99 [facility] MAGNESIUMon 12-04-2023 Magnesium [Mass/Vol] 1.9 mg/dL Normal 1.8-2.6 [facility] Comment on above: Performed By: #### Dru SHEA CMP, ####[facility] ([id number])[address], [address] [place] [address] CBC AND AUTO DIFFon 12-03-19 ABSOLUTE BASOPHIL 0.1 X10E9/L Normal 0.0-0.2 [facility] Comment on above: Performed By: #### Dru SHEA CMP, ####[facility] ([id number])[address], [address] [place] [address] ABSOLUTE NEUTROPHIL 8.0 X10E9/L High 1.5-6.6 [facility] Comment on above: Performed By: #### Dru SHEA CMP, ####[facility] ([id number])[address], [address] [place] [address] Basophils/100 WBC (Bld) 0.9 % Normal [facility] Comment on above: Performed By: #### Dru SHEA CMP, ####[facility] ([id number])[address] [address] Eosinophils (Bld) [#/Vol] 0.1 10*3/uL Normal 0.0-0.4 [facility] Comment on above: Performed By: #### Dru SHEA CMP, ####[facility] ([id number])[address], [address], [place] [address] Eosinophils/100 WBC (Bld) 1.0 % Normal [facility] Comment on above: Performed By: #### Dru SHEA CMP, ####[facility] ([id number])[address], [address], [place] [address] Erythrocyte distribution width (RBC) [Ratio] 19.7 % High 11.5-15.0 [facility] Comment on above: Performed By: #### Dru SHEA CMP, ####[facility] ([id number])[address], [address], [place] [address] Hematocrit (Bld) [Volume fraction] 26.7 % Low 35-47 [facility] Comment on above: Performed By: #### Dru SHEA CMP, ####[facility] ([id number])[address], [address], [place] [address] Hemoglobin (Bld) [Mass/Vol] 9.0 g/dL Low 11.7-15.5 [facility] Comment on above: Performed By: #### Dru SHEA CMP, ####[facility] ([id number])[address], [address], [place] [address] Lymphocytes (Bld) [#/Vol] 1.1 10*3/uL Normal 1.0-3.5 [facility] Comment on above: Performed By: #### Dru SHEA, CMP, ####[facility] ([id number])[address], [address], [place] [address] Lymphocytes/100 WBC (Bld) 10.5 % Normal [facility] Comment on above: Performed By: #### Dru SHEA CMP, ####[facility] ([id number])[address], [address], [place] [address] MCH (RBC) [Entitic mass] 30.0 pg Normal 27-34 [facility] Comment on above: Performed By: #### Dru SHEA CMP, ####[facility] ([id number])[address], [address], [place] [address] MCHC (RBC) [Mass/Vol] 33.6 g/dL Normal 32-36 [facility] Comment on above: Performed By: #### Dru SHEA CMP, ####[facility] ([id number])[address], [address], [place] [address] MCV (RBC) [Entitic vol] 89 fL Normal 80-100 [facility] Comment on above: Performed By: #### Dru SHEA CMP, ####[facility] ([id number])[address], [address] [address] Monocytes (Bld) [#/Vol] 1.0 10*3/uL High 0-0.9 [facility] Comment on above: Performed By: #### Dru SHEA CMP, ####[facility] ([id number])[address], [address] [address] Monocytes/100 WBC (Bld) 10.1 % Normal [facility] Comment on above: Performed By: #### Dru SHEA CMP, ####[facility] ([id number])[address], [address], [place] [address] Neutrophils/100 WBC (Bld) 77.5 % Normal [facility] Comment on above: Performed By: #### Dru SHEA, CMP, ####[facility] ([id number])[address], [address], [place] [address] Platelet mean volume (Bld) [Entitic vol] 10.5 fL Normal 7-12 [facility] Comment on above: Performed By: #### C MONSE, CMP, 36997-0 ####[facility] ([id number])[address], [address] [address] Platelets (Bld) [#/Vol] 129 10*3/uL Low 150-450 [facility] Comment on above: Performed By: #### C MONSE, CMP, ####[facility] ([id number])[address], [address] [address] RBC COUNT 2.99 X10E12/L Low 3.80-5.20 [facility] Comment on above: Performed By: #### Dru SHEA, CMP, 53163-9 ####[facility] ([id number])[address], [address], [place] [address] WBC (Bld) [#/Vol] 10.3 10*3/uL Normal 4.0-11.0 [facility] Comment on above: Performed By: #### C MONSE, CMP, 87163-2 ####[facility] ([id number])[address] [address] COMPREHENSIVE METABOLIC PANE Elver 12-03-2023 Albumin [Mass/Vol] 3.1 g/dL Low 3.2-5.3 [facility] Comment on above: Performed By: #### C MONSE, CMP, ####[facility] ([id number])[address], [address] [address] ALP [Catalytic activity/Vol] 149 U/L High 39-130 [facility] Comment on above: Performed By: #### C BCA, CMP, ####[facility] ([id number])[address], [address] [address] ALT [Catalytic activity/Vol] 31 U/L Normal 0-31 [facility] Comment on above: Performed By: #### C BCA, CMP, ####[facility] ([id number])[address], [address], [place] [address] Anion gap [Moles/Vol] 11 mmol/L Normal 5-15 [facility] Comment on above: Performed By: #### C BCA, CMP, ####[facility] ([id number])[address], [address], [place] [address] AST [Catalytic activity/Vol] 22 U/L Normal 0-41 [facility] Comment on above: Performed By: #### C BCA, CMP, ####[facility] ([id number])[address], [address], [place] [address] Bilirubin [Mass/Vol] 0.6 mg/dL Normal 0.3-1.2 [facility] Comment on above: Performed By: #### C BCA, CMP, ####[facility] ([id number])[address], [address], [place] [address] Calcium [Mass/Vol] 8.1 mg/dL Low 8.5-10.5 [facility] Comment on above: Performed By: #### C BCA, CMP, ####[facility] ([id number])[address], [address], [place] [address] Chloride [Moles/Vol] 102 mmol/L Normal 98-109 [facility] Comment on above: Performed By: #### C BCA, CMP, ####[facility] ([id number])[address], [address], [place] [address] CO2 [Moles/Vol] 22 mmol/L Normal 22-32 [facility] Comment on above: Performed By: #### C BCA, CMP, ####[facility] ([id number])[address] [address] [address] Creatinine [Mass/Vol] 1.15 mg/dL High 0.40-1.00 [facility] Comment on above: Result Comment: METH OD TRACEABLE TO IDMS STANDARD Performed By: #### C TOO SHEA, 21132-7 ####[facility] ([id number])[address] [address] [place] [address] GFR/1.73 sq M.predicted among non-blacks MDRD (S/P/Bld) [Vol rate/Area] 53 mL/min/{1.73_m2} Low >59 [facility] Comment on above: Result Comment: Repo rted eGFR is based on theCKD-EPI 2020 equation that doesnot use a race coefficient. Performed By: #### C TOO SHEA, ####[facility] ([id number])[address] [address], [place] [address] Glucose [Mass/Vol] 224 mg/dL High 65-99 [facility] Comment on above: Performed By: #### C MONSE [facility], ####[facility] ([id number])[address] [address] [place] [address] Potassium [Moles/Vol] 3.6 mmol/L Normal 3.5-5.0 [facility] Comment on above: Performed By: #### C TOO SHEA, ####[facility] ([id number])[address] [address] [address] Protein [Mass/Vol] 6.7 g/dL Normal 6.0-8.0 [facility] Comment on above: Performed By: #### C MONSE CMP, ####[facility] ([id number])[address] [address] [address] Sodium [Moles/Vol] 135 mmol/L Normal 134-146 [facility] Comment on above: Performed By: #### C MONSE, CMP, 05392-2 ####[facility] ([id number])[address], [address] [place] [address] Urea nitrogen [Mass/Vol] 49 mg/dL High 5-27 [facility] Comment on above: Performed By: #### C MONSE, CMP, ####[facility] ([id number])[address], [address] [place] [address] Calcium.ionized (Bld) [Mass/ Vol]on 12-03-2023 IONIZED CALCIUM 4.5 mg/dL Normal 4.5-5.3 [facility] Comment on above: Performed By: #### 3 8230-9, 82868-4 ####[facility] ([id number])[address], [address] [place] [address] Glucose Glucometer (BldC) [M ass/Vol]on 12-03-2023 Glucose [Mass/Vol] 291 mg/dL High 65-99 [facility] Glucose [Mass/Vol] 289 mg/dL High 65-99 [facility] Glucose [Mass/Vol] 347 mg/dL High 65-99 [facility] Glucose [Mass/Vol] 251 mg/dL High 65-99 [facility] Glucose [Mass/Vol] 295 mg/dL High 65-99 [facility] MAGNESIUMon 12-03-2023 Magnesium [Mass/Vol] 1.8 mg/dL Normal 1.8-2.6 [facility] Comment on above: Performed By: #### C MONSE, CMP, 28613-7 ####[facility] ([id number])[address], [address] [place] [address] Magnesium Ionized ISE (Bld) [Moles/Vol]on 12-03-2023 Magnesium [Moles/Vol] 0.56 mmol/L Normal 0.45-0.74 [facility] Comment on above: Result Comment: NEW REFERENCE RANGE Performed By: #### 3 8230-9, 06727-6 ####[facility] ([id number])[address] [address] POTASSIUMon 12-03-2023 Potassium [Moles/Vol] 3.9 mmol/L Normal 3.5-5.0 [facility] Comment on above: Performed By: #### 2 823-3 ####[facility] ([id number])[address] [address] CBC AND AUTO DIFFon 12-02-19 ABSOLUTE BASOPHIL 0.1 X10E9/L Normal 0.0-0.2 [facility] Comment on above: Performed By: #### C MONSE, CMP, ####[facility] ([id number])[address] [address] ABSOLUTE NEUTROPHIL 7.9 X10E9/L High 1.5-6.6 [facility] Comment on above: Performed By: #### C MONSE, CMP, ####[facility] ([id number])[address] [address] Basophils/100 WBC (Bld) 0.6 % Normal [facility] Comment on above: Performed By: #### C BCA, CMP, ####[facility] ([id number])[address] [address] Eosinophils (Bld) [#/Vol] 0.1 10*3/uL Normal 0.0-0.4 [facility] Comment on above: Performed By: #### C BCA, CMP, ####[facility] ([id number])[address], [address] [address] Eosinophils/100 WBC (Bld) 1.0 % Normal [facility] Comment on above: Performed By: #### C MONSE [facility], ####[facility] ([id number])[address], [address], [place] [address] Erythrocyte distribution width (RBC) [Ratio] 19.2 % High 11.5-15.0 [facility] Comment on above: Performed By: #### Dru SHEA CMP, ####[facility] ([id number])[address], [address] [address] Hematocrit (Bld) [Volume fraction] 26.1 % Low 35-47 [facility] Comment on above: Performed By: #### Dru SHEA CMP, ####[facility] ([id number])[address] [address] Hemoglobin (Bld) [Mass/Vol] 8.7 g/dL Low 11.7-15.5 [facility] Comment on above: Performed By: #### Dru SHEA CMP, ####[facility] ([id number])[address] [address], [place] [address] Lymphocytes (Bld) [#/Vol] 0.9 10*3/uL Low 1.0-3.5 [facility] Comment on above: Performed By: #### Dru SHEA CMP, ####[facility] ([id number])[address] [address] [place] [address] Lymphocytes/100 WBC (Bld) 9.0 % Normal [facility] Comment on above: Performed By: #### Dru SHEA CMP, ####[facility] ([id number])[address] [address], [place] [address] MCH (RBC) [Entitic mass] 30.0 pg Normal 27-34 [facility] Comment on above: Performed By: #### C TOO SHEA, ####[facility] ([id number])[address] [place] [address] MCHC (RBC) [Mass/Vol] 33.5 g/dL Normal 32-36 [facility] Comment on above: Performed By: #### C BCA, CMP, ####[facility] ([id number])[address] [place] [address] MCV (RBC) [Entitic vol] 90 fL Normal 80-100 [facility] Comment on above: Performed By: #### C MONSE, CMP, ####[facility] ([id number])[address], [place] [address] Monocytes (Bld) [#/Vol] 0.8 10*3/uL Normal 0-0.9 [facility] Comment on above: Performed By: #### Dru BCA, CMP, ####[facility] ([id number])[address], [place] [address] Monocytes/100 WBC (Bld) 8.5 % Normal [facility] Comment on above: Performed By: #### C BCA, CMP, ####[facility] ([id number])[address] [address], [place] [address] Neutrophils/100 WBC (Bld) 80.9 % Normal [facility] Comment on above: Performed By: #### C BCA, CMP, ####[facility] ([id number])[address], [place] [address] Platelet mean volume (Bld) [Entitic vol] 10.2 fL Normal 7-12 [facility] Comment on above: Performed By: #### C BCA, CMP, ####[facility] ([id number])[address] [place] [address] Platelets (Bld) [#/Vol] 128 10*3/uL Low 150-450 [facility] Comment on above: Performed By: #### C MONSE, CMP, ####[facility] ([id number])[address] [address] RBC COUNT 2.91 X10E12/L Low 3.80-5.20 [facility] Comment on above: Performed By: #### C MONSE, CMP, ####[facility] ([id number])[address], [place] [address] WBC (Bld) [#/Vol] 9.7 10*3/uL Normal 4.0-11.0 [facility] Comment on above: Performed By: #### Dru SHEA, CMP, ####[facility] ([id number])[address] [place] [address] COMPREHENSIVE METABOLIC PANE Elver 12-02-2023 Albumin [Mass/Vol] 3.0 g/dL Low 3.2-5.3 [facility] Comment on above: Performed By: #### C MONSE, CMP, 24904-7 ####[facility] ([id number])[address] [address] [place] [address] ALP [Catalytic activity/Vol] 154 U/L High 39-130 [facility] Comment on above: Performed By: #### C BCA, CMP, ####[facility] ([id number])[address] [address] [place] [address] ALT [Catalytic activity/Vol] 38 U/L High 0-31 [facility] Comment on above: Performed By: #### C BCA, CMP, 82381-1 ####[facility] ([id number])[address], [place] [address] Anion gap [Moles/Vol] 11 mmol/L Normal 5-15 [facility] Comment on above: Performed By: #### C TOO SHEA, ####[facility] ([id number])[address], [place] [address] AST [Catalytic activity/Vol] 38 U/L Normal 0-41 [facility] Comment on above: Performed By: #### C TOO SHEA, ####[facility] ([id number])[address], [place] [address] Bilirubin [Mass/Vol] 0.7 mg/dL Normal 0.3-1.2 [facility] Comment on above: Performed By: #### Dru SHEA CMP, ####[facility] ([id number])[address], [place] [address] Calcium [Mass/Vol] 7.6 mg/dL Low 8.5-10.5 [facility] Comment on above: Performed By: #### Dru SHEA CMP, ####[facility] ([id number])[address], [place] [address] Chloride [Moles/Vol] 102 mmol/L Normal 98-109 [facility] Comment on above: Performed By: #### Dru SHEA CMP, ####[facility] ([id number])[address], [place] [address] CO2 [Moles/Vol] 24 mmol/L Normal 22-32 [facility] Comment on above: Performed By: #### C MONSE CMP, ####[facility] ([id number])[address], [place] [address] Creatinine [Mass/Vol] 1.18 mg/dL High 0.40-1.00 [facility] Comment on above: Result Comment: METH OD TRACEABLE TO IDMS STANDARD Performed By: #### C MONSE, CMP, ####[facility] ([id number])[address] [address] [address] GFR/1.73 sq M.predicted among non-blacks MDRD (S/P/Bld) [Vol rate/Area] 51 mL/min/{1.73_m2} Low >59 [facility] Comment on above: Result Comment: Repo rted eGFR is based on theD-EPI 2020 equation that doesnot use a race coefficient. Performed By: #### C TOO SHEA, ####[facility] ([id number])[address] [address], [place] [address] Glucose [Mass/Vol] 223 mg/dL High 65-99 [facility] Comment on above: Performed By: #### C MONSE CMP, ####[facility] ([id number])[address] [address], [place] [address] Potassium [Moles/Vol] 3.5 mmol/L Normal 3.5-5.0 [facility] Comment on above: Performed By: #### C MONSE, CMP, ####[facility] ([id number])[address] [address], [place] [address] Protein [Mass/Vol] 6.4 g/dL Normal 6.0-8.0 [facility] Comment on above: Performed By: #### C MONSE, CMP, ####[facility] ([id number])[address] [address] [address] Sodium [Moles/Vol] 137 mmol/L Normal 134-146 [facility] Comment on above: Performed By: #### C BCA, CMP, ####[facility] ([id number])[address] [place] [address] Urea nitrogen [Mass/Vol] 38 mg/dL High 5-27 [facility] Comment on above: Performed By: #### Dru SHEA CMP, ####[facility] ([id number])[address] [place] [address] Glucose Glucometer (BldC) [M ass/Vol]on 12-02-2023 Glucose [Mass/Vol] 297 mg/dL High 65-99 [facility] Glucose [Mass/Vol] 313 mg/dL High 65-99 [facility] Glucose [Mass/Vol] 263 mg/dL High 65-99 [facility] Glucose [Mass/Vol] 235 mg/dL High 65-99 [facility] Glucose [Mass/Vol] 193 mg/dL High 65-99 [facility] MAGNESIUMon 12-02-2023 Magnesium [Mass/Vol] 1.9 mg/dL Normal 1.8-2.6 [facility] Comment on above: Performed By: #### C TOO SHEA, ####[facility] ([id number])[address] [address] Magnesium Ionized ISE (Bld) [Moles/Vol]on 12-02-2023 Magnesium [Moles/Vol] 0.60 mmol/L Normal 0.45-0.74 [facility] Comment on above: Result Comment: NEW REFERENCE RANGE Performed By: #### 7 3572-0 ####[facility] ([id number])[address] [address] CBC AND AUTO DIFFon 12-01-19 24 ABSOLUTE BASOPHIL 0.1 X10E9/L Normal 0.0-0.2 [facility] Comment on above: Performed By: #### Dru SHEA, TOO, 67379-7 ####[facility] ([id number])[address] [address] ABSOLUTE NEUTROPHIL 7.8 X10E9/L High 1.5-6.6 [facility] Comment on above: Performed By: #### Dru SHEA CMP, ####[facility] ([id number])[address], [place] [address] Basophils/100 WBC (Bld) 0.7 % Normal [facility] Comment on above: Performed By: #### Dru SHEA CMP, ####[facility] ([id number])[address] [address] [address] Eosinophils (Bld) [#/Vol] 0.1 10*3/uL Normal 0.0-0.4 [facility] Comment on above: Performed By: #### Dru SHEA CMP, ####[facility] ([id number])[address] [address] Eosinophils/100 WBC (Bld) 1.1 % Normal [facility] Comment on above: Performed By: #### Dru SHEA CMP, ####[facility] ([id number])[address], [place] [address] Erythrocyte distribution width (RBC) [Ratio] 19.6 % High 11.5-15.0 [facility] Comment on above: Performed By: #### Dru SHEA CMP, ####[facility] ([id number])[address] [address] [address] Hematocrit (Bld) [Volume fraction] 25.1 % Low 35-47 [facility] Comment on above: Performed By: #### Dru SHEA CMP, ####[facility] ([id number])[address] [address] Hemoglobin (Bld) [Mass/Vol] 8.6 g/dL Low 11.7-15.5 [facility] Comment on above: Performed By: #### C MONSE [facility], ####[facility] ([id number])[address] [address], [place] [address] Lymphocytes (Bld) [#/Vol] 1.3 10*3/uL Normal 1.0-3.5 [facility] Comment on above: Performed By: #### Dru SHEA CMP, ####[facility] ([id number])[address] [address], [place] [address] Lymphocytes/100 WBC (Bld) 12.6 % Normal [facility] Comment on above: Performed By: #### Dru SHEA CMP, ####[facility] ([id number])[address] [address], [place] [address] MCH (RBC) [Entitic mass] 30.2 pg Normal 27-34 [facility] Comment on above: Performed By: #### Dru SHEA [facility], ####[facility] ([id number])[address] [address] MCHC (RBC) [Mass/Vol] 34.0 g/dL Normal 32-36 [facility] Comment on above: Performed By: #### Dru SHEA CMP, ####[facility] ([id number])0 [facility] [address] [place] [address] MCV (RBC) [Entitic vol] 89 fL Normal 80-100 [facility] Comment on above: Performed By: #### Dru SHEA CMP, ####[facility] ([id number])[address] [address] Monocytes (Bld) [#/Vol] 1.0 10*3/uL High 0-0.9 [facility] Comment on above: Performed By: #### Dru SHEA CMP, ####[facility] ([id number])[address], [address], [place] [address] Monocytes/100 WBC (Bld) 9.5 % Normal [facility] Comment on above: Performed By: #### C MONSE, CMP, ####[facility] ([id number])[address], [address], [place] [address] Neutrophils/100 WBC (Bld) 76.1 % Normal [facility] Comment on above: Performed By: #### C MONSE, [facility], ####[facility] ([id number])[address], [address], [place] [address] Platelet mean volume (Bld) [Entitic vol] 10.5 fL Normal 7-12 [facility] Comment on above: Performed By: #### Dru SHEA, [facility], ####[facility] ([id number])[address], [address], [place] [address] Platelets (Bld) [#/Vol] 121 10*3/uL Low 150-450 [facility] Comment on above: Performed By: #### Dru SHEA, [facility], ####[facility] ([id number])[address], [address], [place] [address] RBC COUNT 2.83 X10E12/L Low 3.80-5.20 [facility] Comment on above: Performed By: #### Dru SHEA, CMP, ####[facility] ([id number])[address], [address], [place] [address] WBC (Bld) [#/Vol] 10.2 10*3/uL Normal 4.0-11.0 [facility] Comment on above: Performed By: #### Dru SHEA, CMP, ####[facility] ([id number])[address], [address], [place] [address] COMPREHENSIVE METABOLIC PANE Elver 12-01-2023 Albumin [Mass/Vol] 3.0 g/dL Low 3.2-5.3 [facility] Comment on above: Performed By: #### C BCA, CMP, ####[facility] ([id number])[address], [address], [place] [address] ALP [Catalytic activity/Vol] 153 U/L High 39-130 [facility] Comment on above: Performed By: #### C BCA, CMP, ####[facility] ([id number])[address], [address], [place] [address] ALT [Catalytic activity/Vol] 36 U/L High 0-31 [facility] Comment on above: Performed By: #### C BCA, CMP, ####[facility] ([id number])[address], [address], [place] [address] Anion gap [Moles/Vol] 12 mmol/L Normal 5-15 [facility] Comment on above: Performed By: #### C BCA, CMP, ####[facility] ([id number])[address], [address], [place] [address] AST [Catalytic activity/Vol] 35 U/L Normal 0-41 [facility] Comment on above: Performed By: #### C BCA, CMP, ####[facility] ([id number])[address], [address], [place] [address] Bilirubin [Mass/Vol] 0.6 mg/dL Normal 0.3-1.2 [facility] Comment on above: Performed By: #### C BCA, CMP, ####[facility] ([id number])[address], [address], [place] [address] Calcium [Mass/Vol] 8.1 mg/dL Low 8.5-10.5 [facility] Comment on above: Performed By: #### C MONSE [facility], ####[facility] ([id number])[address], [address], [place] [address] Chloride [Moles/Vol] 101 mmol/L Normal 98-109 [facility] Comment on above: Performed By: #### C TOO SHEA, ####[facility] ([id number])[address], [address], [place] [address] CO2 [Moles/Vol] 23 mmol/L Normal 22-32 [facility] Comment on above: Performed By: #### C OTO SHEA, ####[facility] ([id number])[address] [address], [place] [address] Creatinine [Mass/Vol] 1.14 mg/dL High 0.40-1.00 [facility] Comment on above: Result Comment: METH OD TRACEABLE TO IDMS STANDARD Performed By: #### C TOO SHEA, ####[facility] ([id number])[address] [address] GFR/1.73 sq M.predicted among non-blacks MDRD (S/P/Bld) [Vol rate/Area] 53 mL/min/{1.73_m2} Low >59 [facility] Comment on above: Result Comment: Repo rted eGFR is based on theCKD-EPI 2020 equation that doesnot use a race coefficient. Performed By: #### C TOO SHEA, ####[facility] ([id number])[address] [address], [place] [address] Glucose [Mass/Vol] 151 mg/dL High 65-99 [facility] Comment on above: Performed By: #### C TOO SHEA, ####[facility] ([id number])[address], [address], [place] [address] Potassium [Moles/Vol] 3.5 mmol/L Normal 3.5-5.0 [facility] Comment on above: Performed By: #### C BCA, CMP, 52507-5 ####[facility] ([id number])[address], [address] [place] [address] Protein [Mass/Vol] 6.4 g/dL Normal 6.0-8.0 [facility] Comment on above: Performed By: #### C BCA, CMP, 14692-7 ####[facility] ([id number])[address], [address], [place] [address] Sodium [Moles/Vol] 136 mmol/L Normal 134-146 [facility] Comment on above: Performed By: #### C BCA, CMP, 21674-0 ####[facility] ([id number])[address], [address] [place] [address] Urea nitrogen [Mass/Vol] 50 mg/dL High 5-27 [facility] Comment on above: Performed By: #### C BCA, CMP, 76255-0 ####[facility] ([id number])[address], [address], [place] [address] Glucose Glucometer (BldC) [M ass/Vol]on 12-01-2023 Glucose [Mass/Vol] 193 mg/dL High 65-99 [facility] Glucose [Mass/Vol] 182 mg/dL High 65-99 [facility] Glucose [Mass/Vol] 154 mg/dL High 65-99 [facility] Glucose [Mass/Vol] 204 mg/dL High 65-99 [facility] HGB AND HCTon 12-01-2023 Hematocrit (Bld) [Volume fraction] 25.7 % Low 35-47 [facility] Comment on above: Performed By: #### H H ####[facility] ([id number])[address], [address] [place] [address] Hemoglobin (Bld) [Mass/Vol] 8.7 g/dL Low 11.7-15.5 [facility] Comment on above: Performed By: #### H H ####[facility] ([id number])[address], [address], [place] [address] MAGNESIUMon 12-01-2023 Magnesium [Mass/Vol] 2.3 mg/dL Normal 1.8-2.6 [facility] Comment on above: Performed By: #### C BCA, CMP, 51602-0 ####[facility] ([id number])[address], [address] [place] [address] CBC AND AUTO DIFFon 11-30-19 ABSOLUTE BASOPHIL 0.1 X10E9/L Normal 0.0-0.2 [facility] Comment on above: Performed By: #### C BCA, CMP, , 50025-5 ####[facility] ([id number])0 [facility] [address] [place] [address] ABSOLUTE NEUTROPHIL 9.1 X10E9/L High 1.5-6.6 [facility] Comment on above: Performed By: #### Dru BCA, CMP, , 29875-7 ####[facility] ([id number])0 [facility] [address] [place] [address] Basophils/100 WBC (Bld) 0.9 % Normal [facility] Comment on above: Performed By: #### C BCA, CMP, , 59425-8 ####[facility] ([id number])[address], [address] [place] [address] Eosinophils (Bld) [#/Vol] 0.1 10*3/uL Normal 0.0-0.4 [facility] Comment on above: Performed By: #### C BCA, CMP, , 74097-6 ####[facility] ([id number])[address], [address], [place] [address] Eosinophils/100 WBC (Bld) 0.8 % Normal [facility] Comment on above: Performed By: #### C BCA, CMP, 24082-8, 53130-2 ####[facility] ([id number])[address], [address], [place] [address] Erythrocyte distribution width (RBC) [Ratio] 19.3 % High 11.5-15.0 [facility] Comment on above: Performed By: #### C BCA, CMP, 09589-3, 96073-4 ####[facility] ([id number])[address] [address], [place] [address] Hematocrit (Bld) [Volume fraction] 24.4 % Low 35-47 [facility] Comment on above: Performed By: #### C BCA, CMP, , 63628-9 ####[facility] ([id number])[address] [address] [place] [address] Hemoglobin (Bld) [Mass/Vol] 8.2 g/dL Low 11.7-15.5 [facility] Comment on above: Performed By: #### C BCA, CMP, , 11812-5 ####[facility] ([id number])[address] [address] [place] [address] Lymphocytes (Bld) [#/Vol] 1.3 10*3/uL Normal 1.0-3.5 [facility] Comment on above: Performed By: #### C BCA, CMP, , 78543-3 ####[facility] ([id number])[address] [address] [place] [address] Lymphocytes/100 WBC (Bld) 11.3 % Normal [facility] Comment on above: Performed By: #### C BCA, CMP, , 87860-3 ####[facility] ([id number])[address], [address], [place] [address] MCH (RBC) [Entitic mass] 30.0 pg Normal 27-34 [facility] Comment on above: Performed By: #### C BCA, CMP, 16289-7, 37392-9 ####[facility] ([id number])[address], [address], [place] [address] MCHC (RBC) [Mass/Vol] 33.7 g/dL Normal 32-36 [facility] Comment on above: Performed By: #### C BCA, CMP, , 61521-0 ####[facility] ([id number])[address], [address], [place] [address] MCV (RBC) [Entitic vol] 89 fL Normal 80-100 [facility] Comment on above: Performed By: #### C BCA, CMP, , 63039-7 ####[facility] ([id number])[address], [address], [place] [address] Monocytes (Bld) [#/Vol] 1.0 10*3/uL High 0-0.9 [facility] Comment on above: Performed By: #### C BCA, CMP, , 92921-7 ####[facility] ([id number])[address], [address], [place] [address] Monocytes/100 WBC (Bld) 8.4 % Normal [facility] Comment on above: Performed By: #### C BCA, CMP, , 29282-3 ####[facility] ([id number])[address], [address], [place] [address] Neutrophils/100 WBC (Bld) 78.6 % Normal [facility] Comment on above: Performed By: #### C BCA, CMP, 73955-7, 47586-5 ####[facility] ([id number])[address], [address], [place] [address] Platelet mean volume (Bld) [Entitic vol] 10.6 fL Normal 7-12 [facility] Comment on above: Performed By: #### C BCA, CMP, 07454-4, 11607-4 ####[facility] ([id number])[address], [address], [place] [address] Platelets (Bld) [#/Vol] 114 10*3/uL Low 150-450 [facility] Comment on above: Performed By: #### C BCA, CMP, 27498-5, 02671-7 ####[facility] ([id number])[address] [address], [place] [address] RBC COUNT 2.74 X10E12/L Low 3.80-5.20 [facility] Comment on above: Performed By: #### C BCA, CMP, 84307-8, 57295-5 ####[facility] ([id number])[address] [address], [place] [address] WBC (Bld) [#/Vol] 11.6 10*3/uL High 4.0-11.0 [facility] Comment on above: Performed By: #### C BCA, CMP, 23972-6, 94652-4 ####[facility] ([id number])[address], [address] [place] [address] COMPREHENSIVE METABOLIC PANE Elver 11-30-2023 Albumin [Mass/Vol] 3.0 g/dL Low 3.2-5.3 [facility] Comment on above: Performed By: #### C BCA, CMP, 10467-8, 92422-3 ####[facility] ([id number])[address], [address] [place] [address] ALP [Catalytic activity/Vol] 133 U/L High 39-130 [facility] Comment on above: Performed By: #### C BCA, CMP, , 50781-9 ####[facility] ([id number])[address], [address], [place] [address] ALT [Catalytic activity/Vol] 31 U/L Normal 0-31 [facility] Comment on above: Performed By: #### C BCA, CMP, , 68991-3 ####[facility] ([id number])[address], [address], [place] [address] Anion gap [Moles/Vol] 10 mmol/L Normal 5-15 [facility] Comment on above: Performed By: #### C BCA, CMP, , 29764-4 ####[facility] ([id number])[address], [address], [place] [address] AST [Catalytic activity/Vol] 39 U/L Normal 0-41 [facility] Comment on above: Performed By: #### C BCA, CMP, , 56887-8 ####[facility] ([id number])[address], [address], [place] [address] Bilirubin [Mass/Vol] 0.6 mg/dL Normal 0.3-1.2 [facility] Comment on above: Performed By: #### C BCA, CMP, , 28372-9 ####[facility] ([id number])[address], [address], [place] [address] Calcium [Mass/Vol] 7.5 mg/dL Low 8.5-10.5 [facility] Comment on above: Performed By: #### C BCA, CMP, , 24156-0 ####[facility] ([id number])[address], [address], [place] [address] Chloride [Moles/Vol] 102 mmol/L Normal 98-109 [facility] Comment on above: Performed By: #### C TOO SHEA, , 54266-1 ####[facility] ([id number])[address], [address], [place] [address] CO2 [Moles/Vol] 23 mmol/L Normal 22-32 [facility] Comment on above: Performed By: #### C TOO SHEA, , 28395-8 ####[facility] ([id number])[address], [address] [place] [address] Creatinine [Mass/Vol] 1.19 mg/dL High 0.40-1.00 [facility] Comment on above: Result Comment: METH OD TRACEABLE TO IDMS STANDARD Performed By: #### C TOO SHEA, , 75579-3 ####[facility] ([id number])[address], [address], [place] [address] GFR/1.73 sq M.predicted among non-blacks MDRD (S/P/Bld) [Vol rate/Area] 50 mL/min/{1.73_m2} Low >59 [facility] Comment on above: Result Comment: Repo rted eGFR is based on theCKD-EPI 2020 equation that doesnot use a race coefficient. Performed By: #### C TOO SHEA, , 51658-8 ####[facility] ([id number])[address], [address] [place] [address] Glucose [Mass/Vol] 173 mg/dL High 65-99 [facility] Comment on above: Performed By: #### C TOO SHEA, , 91726-1 ####[facility] ([id number])[address], [address], [place] [address] Potassium [Moles/Vol] 3.5 mmol/L Normal 3.5-5.0 [facility] Comment on above: Performed By: #### C BCA, CMP, , 48060-1 ####[facility] ([id number])[address], [address], [place] [address] Protein [Mass/Vol] 5.8 g/dL Low 6.0-8.0 [facility] Comment on above: Performed By: #### C BCA, CMP, , 35571-9 ####[facility] ([id number])[address], [address], [place] [address] Sodium [Moles/Vol] 135 mmol/L Normal 134-146 [facility] Comment on above: Performed By: #### C BCA, CMP, , 42887-0 ####[facility] ([id number])[address], [address] [place] [address] Urea nitrogen [Mass/Vol] 55 mg/dL High 5-27 [facility] Comment on above: Performed By: #### C BCA, CMP, , 44711-1 ####[facility] ([id number])[address], [address] [place] [address] Calcium.ionized (Bld) [Mass/ Vol]on 11-30-2023 IONIZED CALCIUM 4.3 mg/dL Low 4.5-5.3 [facility] Comment on above: Performed By: #### 3 8230-9 ####[facility] ([id number])[address], [address], [place] [address] FL SWALLOW MOTILITY FUNCTION on 11-30-2023 FL SWALLOW MOTILITY FUNCTION Normal [facility] Glucose Glucometer (BldC) [M ass/Vol]on 11-30-2023 Glucose [Mass/Vol] 177 mg/dL High 65-99 [facility] Glucose [Mass/Vol] 262 mg/dL High 65-99 [facility] Glucose [Mass/Vol] 182 mg/dL High 65-99 [facility] Glucose [Mass/Vol] 204 mg/dL High 65-99 [facility] MAGNESIUMon 11-30-2023 Magnesium [Mass/Vol] 1.9 mg/dL Normal 1.8-2.6 [facility] Comment on above: Performed By: #### C BCA, CMP, 06236-3, 07114-5 ####[facility] ([id number])[address], [address] [place] [address] MRSA PCR NASALon 11-30-2023 MRSA DNA CHELLY+probe Ql (Unsp spec) Negative Normal NEG [facility] Comment on above: Performed By: #### 3 5492-8 ####[facility] ([id number])[address], [address] [place] [address] Natriuretic peptide B [Mass/ Vol]on 11-30-2023 Natriuretic peptide B (Bld) [Mass/Vol] 434 pg/mL High <100.0 [facility] Comment on above: Performed By: #### C BCA, CMP, 88373-4, 31481-8 ####[facility] ([id number])[address], [address] [place] [address] XR CHEST 1 VWon 11-30-2023 XR CHEST 1 VW Normal [facility] CBC AND AUTO DIFFon 11-29-19 24 ABSOLUTE BASOPHIL 0.0 X10E9/L Normal 0.0-0.2 [facility] Comment on above: Performed By: #### C BCA, CMP, 24625-5, 70031-3 ####[facility] ([id number])[address], [address] [place] [address] ABSOLUTE NEUTROPHIL 11.9 X10E9/L High 1.5-6.6 [facility] Comment on above: Performed By: #### C BCA, CMP, 40186-7, 40377-1 ####[facility] ([id number])[address], [address] [place] [address] Basophils/100 WBC (Bld) 0.3 % Normal [facility] Comment on above: Performed By: #### C BCA, CMP, , 11096-1 ####[facility] ([id number])[address], [address] [place] [address] Eosinophils (Bld) [#/Vol] 0.0 10*3/uL Normal 0.0-0.4 [facility] Comment on above: Performed By: #### C BCA, CMP, , 71607-2 ####[facility] ([id number])[address], [address] [place] [address] Eosinophils/100 WBC (Bld) 0.0 % Normal [facility] Comment on above: Performed By: #### Dru BCA, CMP, , 51132-9 ####[facility] ([id number])[address] [address], [place] [address] Erythrocyte distribution width (RBC) [Ratio] 19.2 % High 11.5-15.0 [facility] Comment on above: Performed By: #### Dru BCA, CMP, , 55429-9 ####[facility] ([id number])[address] [address], [place] [address] Hematocrit (Bld) [Volume fraction] 25.0 % Low 35-47 [facility] Comment on above: Performed By: #### C BCA, CMP, , 18566-2 ####[facility] ([id number])[address] [address] [place] [address] Hemoglobin (Bld) [Mass/Vol] 8.3 g/dL Low 11.7-15.5 [facility] Comment on above: Performed By: #### Dru BCA, CMP, , 64191-8 ####[facility] ([id number])[address] [address] [place] [address] Lymphocytes (Bld) [#/Vol] 1.0 10*3/uL Normal 1.0-3.5 [facility] Comment on above: Performed By: #### C BCA, CMP, , 40354-9 ####[facility] ([id number])[address] [address] [place] [address] Lymphocytes/100 WBC (Bld) 7.6 % Normal [facility] Comment on above: Performed By: #### Dru BCA, CMP, 67972-4, 83499-7 ####[facility] ([id number])[address] [address] [place] [address] MCH (RBC) [Entitic mass] 29.6 pg Normal 27-34 [facility] Comment on above: Performed By: #### Dru BCA, CMP, , 06997-6 ####[facility] ([id number])[address] [address] MCHC (RBC) [Mass/Vol] 33.1 g/dL Normal 32-36 [facility] Comment on above: Performed By: #### Dru BCA, CMP, , 80256-4 ####[facility] ([id number])[address] [address] MCV (RBC) [Entitic vol] 89 fL Normal 80-100 [facility] Comment on above: Performed By: #### Dru BCA, CMP, , 39268-6 ####[facility] ([id number])[address] [address] Monocytes (Bld) [#/Vol] 0.8 10*3/uL Normal 0-0.9 [facility] Comment on above: Performed By: #### Dru BCA, CMP, , 23413-9 ####[facility] ([id number])[address] [place] [address] Monocytes/100 WBC (Bld) 6.1 % Normal [facility] Comment on above: Performed By: #### C BCA, CMP, 94339-6, 89805-2 ####[facility] ([id number])[address] [place] [address] Neutrophils/100 WBC (Bld) 86.0 % Normal [facility] Comment on above: Performed By: #### C MONSE, CMP, , 96163-1 ####[facility] ([id number])[address] [place] [address] Platelet mean volume (Bld) [Entitic vol] 11.1 fL Normal 7-12 [facility] Comment on above: Performed By: #### Dru BCA, [facility], , 86189-8 ####[facility] ([id number])[address] [place] [address] Platelets (Bld) [#/Vol] 113 10*3/uL Low 150-450 [facility] Comment on above: Performed By: #### Dru BCA, CMP, , 81227-3 ####[facility] ([id number])[address] [place] [address] RBC COUNT 2.80 X10E12/L Low 3.80-5.20 [facility] Comment on above: Performed By: #### C BCA, CMP, , 21346-3 ####[facility] ([id number])[address] [place] [address] WBC (Bld) [#/Vol] 13.8 10*3/uL High 4.0-11.0 [facility] Comment on above: Performed By: #### C BCA, CMP, , 33401-8 ####[facility] ([id number])[address], [place] [address] COMPREHENSIVE METABOLIC PANE Elver 11-29-2023 Albumin [Mass/Vol] 2.9 g/dL Low 3.2-5.3 [facility] Comment on above: Performed By: #### C BCA, CMP, , 37302-0 ####[facility] ([id number])[address], [place] [address] ALP [Catalytic activity/Vol] 127 U/L Normal 39-130 [facility] Comment on above: Performed By: #### C BCA, CMP, , 49862-9 ####[facility] ([id number])[address], [place] [address] ALT [Catalytic activity/Vol] 22 U/L Normal 0-31 [facility] Comment on above: Performed By: #### C BCA, CMP, , 67847-8 ####[facility] ([id number])[address], [place] [address] Anion gap [Moles/Vol] 10 mmol/L Normal 5-15 [facility] Comment on above: Performed By: #### C BCA, CMP, , 13004-0 ####[facility] ([id number])[address], [address], [place] [address] AST [Catalytic activity/Vol] 20 U/L Normal 0-41 [facility] Comment on above: Performed By: #### C BCA, CMP, , 00164-7 ####[facility] ([id number])[address], [place] [address] Bilirubin [Mass/Vol] 0.6 mg/dL Normal 0.3-1.2 [facility] Comment on above: Performed By: #### C BCA, CMP, 62669-2, 12322-1 ####[facility] ([id number])[address] [address] [place] [address] Calcium [Mass/Vol] 7.7 mg/dL Low 8.5-10.5 [facility] Comment on above: Performed By: #### C BCA, CMP, 51270-6, 96893-1 ####[facility] ([id number])[address] [address] [place] [address] Chloride [Moles/Vol] 102 mmol/L Normal 98-109 [facility] Comment on above: Performed By: #### C BCA, CMP, 16516-9, 68045-6 ####[facility] ([id number])[address] [address] [place] [address] CO2 [Moles/Vol] 23 mmol/L Normal 22-32 [facility] Comment on above: Performed By: #### C BCA, CMP, 38298-4, 39906-6 ####[facility] ([id number])[address] [address] [place] [address] Creatinine [Mass/Vol] 1.22 mg/dL High 0.40-1.00 [facility] Comment on above: Result Comment: METH OD TRACEABLE TO IDMS STANDARD Performed By: #### C BCA, CMP, 83388-4, 11435-0 ####[facility] ([id number])[address] [address], [place] [address] GFR/1.73 sq M.predicted among non-blacks MDRD (S/P/Bld) [Vol rate/Area] 49 mL/min/{1.73_m2} Low >59 [facility] Comment on above: Result Comment: Repo rted eGFR is based on theCKD-EPI 2020 equation that doesnot use a race coefficient. Performed By: #### C BCA, CMP, , 73428-2 ####[facility] ([id number])[address] [address], [address], [place] [address] Glucose [Mass/Vol] 231 mg/dL High 65-99 [facility] Comment on above: Performed By: #### C BCA, CMP, , 73219-3 ####[facility] ([id number])[address], [address], [place] [address] Potassium [Moles/Vol] 4.2 mmol/L Normal 3.5-5.0 [facility] Comment on above: Performed By: #### C BCA, CMP, , 63189-3 ####[facility] ([id number])[address] [address], [place] [address] Protein [Mass/Vol] 6.2 g/dL Normal 6.0-8.0 [facility] Comment on above: Performed By: #### C BCA, CMP, , 51383-4 ####[facility] ([id number])[address] [address], [place] [address] Sodium [Moles/Vol] 135 mmol/L Normal 134-146 [facility] Comment on above: Performed By: #### C BCA, CMP, , 94695-0 ####[facility] ([id number])[address] [address], [place] [address] Urea nitrogen [Mass/Vol] 61 mg/dL High 5-27 [facility] Comment on above: Performed By: #### C BCA, CMP, , 63808-3 ####[facility] ([id number])[address], [address], [place] [address] Glucose Glucometer (BldC) [M ass/Vol]on 03-01-2024 Glucose [Mass/Vol] 180 mg/dL High 65-99 [facility] Glucose [Mass/Vol] 145 mg/dL High 65-99 [facility] Glucose [Mass/Vol] 233 mg/dL High 65-99 [facility] Glucose [Mass/Vol] 354 mg/dL High 65-99 [facility] MAGNESIUMon 11-29-2023 Magnesium [Mass/Vol] 1.9 mg/dL Normal 1.8-2.6 [facility] Comment on above: Performed By: #### C TOO SHEA, , 67770-4 ####[facility] ([id number])[address], [address] [place] [address] Procalcitonin IA [Mass/Vol]o n 11-29-2023 PROCALCITONIN 0.52 ng/mL High <0.05 [facility] Comment on above: Result Comment: NOTE <0.50 ng/mL - Low risk of severe sepsis and/or septic shock.<2.00 ng/mL - Recommend retesting within 6-24 hours.>2.00 ng/mL - High risk of sepsis and/or septic shock. Performed By: #### Dru SHEA CMP, , 99835-9 ####[facility] ([id number])[address], [address] [place] [address] XR CHEST 1 VWon 11-29-2023 XR CHEST 1 VW Normal [facility] CBC AND AUTO DIFFon 11-28-19 24 ABSOLUTE BASOPHIL 0.1 X10E9/L Normal 0.0-0.2 [facility] Comment on above: Performed By: #### Dru SHEA CMP, 65008-9 ####[facility] ([id number])[address], [address] [place] [address] ABSOLUTE NEUTROPHIL 9.3 X10E9/L High 1.5-6.6 [facility] Comment on above: Performed By: #### Dru SHEA CMP, ####[facility] ([id number])[address], [address] [address] Basophils/100 WBC (Bld) 0.8 % Normal [facility] Comment on above: Performed By: #### C MONSE, CMP, ####[facility] ([id number])[address] [address] [place] [address] Eosinophils (Bld) [#/Vol] 0.3 10*3/uL Normal 0.0-0.4 [facility] Comment on above: Performed By: #### C MONSE, CMP, ####[facility] ([id number])[address] [address] [address] Eosinophils/100 WBC (Bld) 2.2 % Normal [facility] Comment on above: Performed By: #### Dru SHEA, CMP, ####[facility] ([id number])[address] [address] [address] Erythrocyte distribution width (RBC) [Ratio] 19.9 % High 11.5-15.0 [facility] Comment on above: Performed By: #### C MONSE, CMP, ####[facility] ([id number])[address] [address] [address] Hematocrit (Bld) [Volume fraction] 27.1 % Low 35-47 [facility] Comment on above: Performed By: #### C BCA, CMP, ####[facility] ([id number])[address] [address] [address] Hemoglobin (Bld) [Mass/Vol] 8.9 g/dL Low 11.7-15.5 [facility] Comment on above: Performed By: #### C BCA, CMP, ####[facility] ([id number])[address], [address], [place] [address] Lymphocytes (Bld) [#/Vol] 1.3 10*3/uL Normal 1.0-3.5 [facility] Comment on above: Performed By: #### Dru SHEA CMP, ####[facility] ([id number])[address], [address], [place] [address] Lymphocytes/100 WBC (Bld) 10.7 % Normal [facility] Comment on above: Performed By: #### Dru SHEA CMP, ####[facility] ([id number])[address], [address], [place] [address] MCH (RBC) [Entitic mass] 29.7 pg Normal 27-34 [facility] Comment on above: Performed By: #### Dru SHEA CMP, ####[facility] ([id number])[address], [address], [place] [address] MCHC (RBC) [Mass/Vol] 32.9 g/dL Normal 32-36 [facility] Comment on above: Performed By: #### Dru SHEA CMP, ####[facility] ([id number])[address], [address], [place] [address] MCV (RBC) [Entitic vol] 90 fL Normal 80-100 [facility] Comment on above: Performed By: #### Dru SHEA CMP, ####[facility] ([id number])[address], [address] [place] [address] Monocytes (Bld) [#/Vol] 1.2 10*3/uL High 0-0.9 [facility] Comment on above: Performed By: #### Dru SHEA CMP, ####[facility] ([id number])[address], [address], [place] [address] Monocytes/100 WBC (Bld) 10.0 % Normal [facility] Comment on above: Performed By: #### C MONSE, CMP, ####[facility] ([id number])[address], [address] [place] [address] Neutrophils/100 WBC (Bld) 76.3 % Normal [facility] Comment on above: Performed By: #### Dru SHEA, CMP, ####[facility] ([id number])[address], [address] [place] [address] Platelet mean volume (Bld) [Entitic vol] 10.3 fL Normal 7-12 [facility] Comment on above: Performed By: #### Dru SHEA, CMP, ####[facility] ([id number])[address], [address] [place] [address] Platelets (Bld) [#/Vol] 110 10*3/uL Low 150-450 [facility] Comment on above: Performed By: #### Dru SHEA, CMP, ####[facility] ([id number])[address], [address], [place] [address] RBC COUNT 3.00 X10E12/L Low 3.80-5.20 [facility] Comment on above: Performed By: #### Dru SHEA, CMP, ####[facility] ([id number])[address] [address] [place] [address] WBC (Bld) [#/Vol] 12.2 10*3/uL High 4.0-11.0 [facility] Comment on above: Performed By: #### C BCA, CMP, ####[facility] ([id number])[address], [address], [place] [address] COMPREHENSIVE METABOLIC PANE Elver 11-28-2023 Albumin [Mass/Vol] 3.1 g/dL Low 3.2-5.3 [facility] Comment on above: Performed By: #### C BCA, CMP, ####[facility] ([id number])[address], [address], [place] [address] ALP [Catalytic activity/Vol] 126 U/L Normal 39-130 [facility] Comment on above: Performed By: #### C BCA, CMP, ####[facility] ([id number])[address], [address], [place] [address] ALT [Catalytic activity/Vol] 23 U/L Normal 0-31 [facility] Comment on above: Performed By: #### C BCA, CMP, ####[facility] ([id number])[address], [address], [place] [address] Anion gap [Moles/Vol] 11 mmol/L Normal 5-15 [facility] Comment on above: Performed By: #### C BCA, CMP, ####[facility] ([id number])[address], [address], [place] [address] AST [Catalytic activity/Vol] 26 U/L Normal 0-41 [facility] Comment on above: Performed By: #### C BCA, CMP, ####[facility] ([id number])[address], [address], [place] [address] Bilirubin [Mass/Vol] 0.7 mg/dL Normal 0.3-1.2 [facility] Comment on above: Performed By: #### C BCA, CMP, ####[facility] ([id number])[address], [address], [place] [address] Calcium [Mass/Vol] 8.4 mg/dL Low 8.5-10.5 [facility] Comment on above: Performed By: #### C BCA, CMP, ####[facility] ([id number])[address], [address], [place] [address] Chloride [Moles/Vol] 102 mmol/L Normal 98-109 [facility] Comment on above: Performed By: #### C TOO SHEA, 18672-6 ####[facility] ([id number])[address], [address], [place] [address] CO2 [Moles/Vol] 25 mmol/L Normal 22-32 [facility] Comment on above: Performed By: #### C TOO SHEA, 36442-1 ####[facility] ([id number])[address], [address], [place] [address] Creatinine [Mass/Vol] 1.22 mg/dL High 0.40-1.00 [facility] Comment on above: Result Comment: METH OD TRACEABLE TO IDMS STANDARD Performed By: #### C TOO SHEA, ####[facility] ([id number])[address], [address], [place] [address] GFR/1.73 sq M.predicted among non-blacks MDRD (S/P/Bld) [Vol rate/Area] 49 mL/min/{1.73_m2} Low >59 [facility] Comment on above: Result Comment: Repo rted eGFR is based on theCKD-EPI 2020 equation that doesnot use a race coefficient. Performed By: #### C TOO SHEA, ####[facility] ([id number])[address] [address], [place] [address] Glucose [Mass/Vol] 167 mg/dL High 65-99 [facility] Comment on above: Performed By: #### C TOO SHEA, ####[facility] ([id number])[address], [address], [place] [address] Potassium [Moles/Vol] 4.0 mmol/L Normal 3.5-5.0 [facility] Comment on above: Performed By: #### C BCA, [facility], [address]-6 ####[facility] ([id number])[address], [address], [place] [address] Protein [Mass/Vol] 6.5 g/dL Normal 6.0-8.0 [facility] Comment on above: Performed By: #### C MONSE, [facility], ####[facility] ([id number])[address], [address], [place] [address] Sodium [Moles/Vol] 138 mmol/L Normal 134-146 [facility] Comment on above: Performed By: #### C MONSE, [facility], ####[facility] ([id number])[address], [address], [place] [address] Urea nitrogen [Mass/Vol] 61 mg/dL High 5-27 [facility] Comment on above: Performed By: #### C MONSE, [facility], [address]-6 ####[facility] ([id number])[address], [address] [place] [address] Glucose Glucometer (BldC) [M ass/Vol]on 11-28-2023 Glucose [Mass/Vol] 213 mg/dL High 65-99 [facility] Glucose [Mass/Vol] 178 mg/dL High 65-99 [facility] Glucose [Mass/Vol] 196 mg/dL High 65-99 [facility] Lactate (P stan) [Moles/Vol]o n 11-28-2023 LACTATE W/REFLEX 1.1 mmol/L Normal 0.4-2.0 [facility] Comment on above: Result Comment: Resu lt did not trigger repeat Lactate,re-order if needed. Performed By: #### 3 3-1 ####[facility] ([id number])[address], [address] [place] [address] MAGNESIUMon 11-28-2023 Magnesium [Mass/Vol] 2.0 mg/dL Normal 1.8-2.6 [facility] Comment on above: Performed By: #### C BCA, CMP, 77418-9 ####[facility] ([id number])[address] [place] [address], [address] [place] [address] Magnesium Ionized ISE (Bld) [Moles/Vol]on 11-28-2023 Magnesium [Moles/Vol] 0.60 mmol/L Normal 0.45-0.74 [facility] Comment on above: Result Comment: NEW REFERENCE RANGE Performed By: #### 7 3572-0 ####[facility] ([id number])[address] [place] [address], [address] [place] [address] Surgical Pathologyon 024 Surgical Pathology Normal [facility] Comment on above: Result Comment: [facility] [address] [place] [address] Surgical Pathology ConsultationPatient Name:HARRIS CASTREJON:1955 (Age: 68)Gender:FTaken:4Reported:12/05/2023hysician(s):Mitra Crowell MD ([phone])Copy To:Varsha Sepulveda MS CGCAccession #:[id number]. Rec. #:[id number]: #[id number] Pathologic Diagnosis1. Rectal mass, biopsies: Fragments of [...] 2AFixative: Formalin (Formalin-fixed, paraffin embedded tissue)MLH1: Vendor: [employer], Primary Antibody: M1MSH2: Vendor: [employer], Primary Antibody: [id number] 6: Vendor: [employer], Primary Antibody: 44PMS2: Vendor: [employer], Primary Antibody: [id number] System: MLH1, MSH2, PMS2: [employer] OptiView DAB IHC Detection Kit (indirect biotin-free detection)MSH6: [employer] ultraView [place] DAB Detection Kit (indirect biotin-free detection)MSH6 was developed and its performance characteristics determined by the [facility] Immunohistochemistry Department. It has not [...] Carcinoma of the Colon and Rectum. Version: [employer] 1.2.0.1. Template posting date: August 2014. CAP.orgRevised 09/2021 Report Electronically Signed [facility]/12/05/2023Gaurav Ruiz M.D.[place] [address], License number: [id number].Clinical HistoryRectal mass.Gross Description1. Received in formalin labeled, CASH, rectal mass are 7 leroy to medrano by 0.2 to 0.4 cm soft tissue bits. The specimen is filtered and entirely submitted in a single cassette. (1, ns, [id number], m5) SM2. Received in formalin labeled, CASH, rectal mass #2 are multiple fragments of reddish-brown friable polypoid tissue that ranges from 0.3 x 0.2 x 0.2 cm to 1.3 x 0.9 x 0.8 cm. The surgical margins of the largest portion are inked. The largest portion is serially sectioned and submitted in cassette A. The remaining polypoid portions are entirely submitted in cassettes B-C. Gross photographs are taken. (3, ns, [id number],m5) [facility]/11/29/2023SSISpecimen(s) Received1: Rectal mass2: Rectal mass #2Fee Codes(s):1; 331921; 58183, 08150, 31584(3) CBC AND AUTO DIFFon 11-27-19 24 ABSOLUTE BASOPHIL 0.1 X10E9/L Normal 0.0-0.2 [facility] Comment on above: Performed By: #### C MONSE [facility], [address]-1 ####[facility] ([id number])[address], [address] [place] [address] ABSOLUTE NEUTROPHIL 7.9 X10E9/L High 1.5-6.6 [facility] Comment on above: Performed By: #### C MONSE [facility], 672[address]-2 ####[facility] ([id number])[address] [address] [place] [address] Basophils/100 WBC (Bld) 1.1 % Normal [facility] Comment on above: Performed By: #### C MONSE [facility], 01729-0 ####[facility] ([id number])[address], [address] [place] [address] Eosinophils (Bld) [#/Vol] 0.2 10*3/uL Normal 0.0-0.4 [facility] Comment on above: Performed By: #### C TOO SHEA, ####[facility] ([id number])[address], [address], [place] [address] Eosinophils/100 WBC (Bld) 1.7 % Normal [facility] Comment on above: Performed By: #### Dru SHEA CMP, ####[facility] ([id number])[address], [address] [address] Erythrocyte distribution width (RBC) [Ratio] 20.1 % High 11.5-15.0 [facility] Comment on above: Performed By: #### Dru SHEA CMP, ####[facility] ([id number])[address], [address] [address] Hematocrit (Bld) [Volume fraction] 27.1 % Low 35-47 [facility] Comment on above: Performed By: #### Dru SHEA CMP, ####[facility] ([id number])[address], [address], [place] [address] Hemoglobin (Bld) [Mass/Vol] 9.0 g/dL Low 11.7-15.5 [facility] Comment on above: Performed By: #### Dru SHEA CMP, ####[facility] ([id number])[address], [address] [address] Lymphocytes (Bld) [#/Vol] 1.1 10*3/uL Normal 1.0-3.5 [facility] Comment on above: Performed By: #### Dru SHEA CMP, ####[facility] ([id number])[address], [address] [address] Lymphocytes/100 WBC (Bld) 10.9 % Normal [facility] Comment on above: Performed By: #### C MONSE, CMP, ####[facility] ([id number])[address], [address] [address] MCH (RBC) [Entitic mass] 30.0 pg Normal 27-34 [facility] Comment on above: Performed By: #### C MONSE, CMP, ####[facility] ([id number])[address], [address], [place] [address] MCHC (RBC) [Mass/Vol] 33.4 g/dL Normal 32-36 [facility] Comment on above: Performed By: #### C MONSE, CMP, ####[facility] ([id number])[address], [address], [place] [address] MCV (RBC) [Entitic vol] 90 fL Normal 80-100 [facility] Comment on above: Performed By: #### Dru BCA, CMP, ####[facility] ([id number])[address], [address], [place] [address] Monocytes (Bld) [#/Vol] 1.1 10*3/uL High 0-0.9 [facility] Comment on above: Performed By: #### Dru SHEA, CMP, ####[facility] ([id number])[address], [address], [place] [address] Monocytes/100 WBC (Bld) 10.7 % Normal [facility] Comment on above: Performed By: #### C BCA, CMP, ####[facility] ([id number])[address], [address], [place] [address] Neutrophils/100 WBC (Bld) 75.6 % Normal [facility] Comment on above: Performed By: #### C BCA, CMP, ####[facility] ([id number])[address], [address], [place] [address] Platelet mean volume (Bld) [Entitic vol] 10.2 fL Normal 7-12 [facility] Comment on above: Performed By: #### C BCA, CMP, 10497-0 ####[facility] ([id number])[address] [address], [place] [address] Platelets (Bld) [#/Vol] 120 10*3/uL Low 150-450 [facility] Comment on above: Performed By: #### C BCA, CMP, 11830-0 ####[facility] ([id number])[address], [address], [place] [address] RBC COUNT 3.01 X10E12/L Low 3.80-5.20 [facility] Comment on above: Performed By: #### C BCA, CMP, ####[facility] ([id number])[address] [address] [place] [address] WBC (Bld) [#/Vol] 10.5 10*3/uL Normal 4.0-11.0 [facility] Comment on above: Performed By: #### C BCA, CMP, 02290-4 ####[facility] ([id number])[address], [address], [place] [address] COMPREHENSIVE METABOLIC PANE Elver 11-27-2023 Albumin [Mass/Vol] 3.2 g/dL Normal 3.2-5.3 [facility] Comment on above: Performed By: #### C BCA, CMP, ####[facility] ([id number])[address] [address] [place] [address] ALP [Catalytic activity/Vol] 120 U/L Normal 39-130 [facility] Comment on above: Performed By: #### C BCA, CMP, ####[facility] ([id number])[address], [address], [place] [address] ALT [Catalytic activity/Vol] 22 U/L Normal 0-31 [facility] Comment on above: Performed By: #### C BCA, CMP, 21046-4 ####[facility] ([id number])[address], [place] [address] Anion gap [Moles/Vol] 11 mmol/L Normal 5-15 [facility] Comment on above: Performed By: #### C BCA, CMP, ####[facility] ([id number])[address], [address], [place] [address] AST [Catalytic activity/Vol] 24 U/L Normal 0-41 [facility] Comment on above: Performed By: #### Dru BCA, CMP, ####[facility] ([id number])[address], [address], [place] [address] Bilirubin [Mass/Vol] 0.7 mg/dL Normal 0.3-1.2 [facility] Comment on above: Performed By: #### Dru BCA, CMP, ####[facility] ([id number])[address], [place] [address] Calcium [Mass/Vol] 8.3 mg/dL Low 8.5-10.5 [facility] Comment on above: Performed By: #### Dru BCA, CMP, ####[facility] ([id number])[address], [address], [place] [address] Chloride [Moles/Vol] 106 mmol/L Normal 98-109 [facility] Comment on above: Performed By: #### C BCA, CMP, ####[facility] ([id number])[address], [address], [place] [address] CO2 [Moles/Vol] 25 mmol/L Normal 22-32 [facility] Comment on above: Performed By: #### C MONSE CMP, 95196-4 ####[facility] ([id number])[address], [address], [place] [address] Creatinine [Mass/Vol] 1.27 mg/dL High 0.40-1.00 [facility] Comment on above: Result Comment: METH OD TRACEABLE TO IDMS STANDARD Performed By: #### C TOO SHEA, ####[facility] ([id number])[address], [address], [place] [address] GFR/1.73 sq M.predicted among non-blacks MDRD (S/P/Bld) [Vol rate/Area] 47 mL/min/{1.73_m2} Low >59 [facility] Comment on above: Result Comment: Repo rted eGFR is based on theCKD-EPI 2020 equation that doesnot use a race coefficient. Performed By: #### C TOO SHEA, ####[facility] ([id number])[address] [place] [address] Glucose [Mass/Vol] 166 mg/dL High 65-99 [facility] Comment on above: Performed By: #### C TOO SHEA, ####[facility] ([id number])[address] [address] [address] Potassium [Moles/Vol] 4.2 mmol/L Normal 3.5-5.0 [facility] Comment on above: Performed By: #### C MONSE, CMP, ####[facility] ([id number])[address] [address] [place] [address] Protein [Mass/Vol] 6.6 g/dL Normal 6.0-8.0 [facility] Comment on above: Performed By: #### C MONSE CMP, ####[facility] ([id number])[address], [place] [address] Sodium [Moles/Vol] 142 mmol/L Normal 134-146 [facility] Comment on above: Performed By: #### Dru SHEA CMP, 50765-5 ####[facility] ([id number])[address], [place] [address] Urea nitrogen [Mass/Vol] 65 mg/dL High 5-27 [facility] Comment on above: Performed By: #### Dru SHEA CMP, ####[facility] ([id number])[address], [place] [address] Glucose Glucometer (BldC) [M ass/Vol]on 11-27-2023 Glucose [Mass/Vol] 162 mg/dL High 65-99 [facility] Glucose [Mass/Vol] 219 mg/dL High 65-99 [facility] Glucose [Mass/Vol] 215 mg/dL High 65-99 [facility] Glucose [Mass/Vol] 233 mg/dL High 65-99 [facility] MAGNESIUMon 11-27-2023 Magnesium [Mass/Vol] 2.2 mg/dL Normal 1.8-2.6 [facility] Comment on above: Performed By: #### Dru SHEA CMP, ####[facility] ([id number])[address], [place] [address] CBC AND AUTO DIFFon 11-26-19 24 ABSOLUTE BASOPHIL 0.1 X10E9/L Normal 0.0-0.2 [facility] Comment on above: Performed By: #### Dru SHEA CMP, ####[facility] ([id number])[address] [address] ABSOLUTE NEUTROPHIL 7.6 X10E9/L High 1.5-6.6 [facility] Comment on above: Performed By: #### Dru SHEA CMP, ####[facility] ([id number])[address], [place] [address] Basophils/100 WBC (Bld) 1.2 % Normal [facility] Comment on above: Performed By: #### C MONSE, CMP, ####[facility] ([id number])[address], [place] [address] Eosinophils (Bld) [#/Vol] 0.2 10*3/uL Normal 0.0-0.4 [facility] Comment on above: Performed By: #### C MONSE, CMP, ####[facility] ([id number])[address], [place] [address] Eosinophils/100 WBC (Bld) 1.6 % Normal [facility] Comment on above: Performed By: #### Dru SHEA, [facility], ####[facility] ([id number])[address] [address], [place] [address] Erythrocyte distribution width (RBC) [Ratio] 19.8 % High 11.5-15.0 [facility] Comment on above: Performed By: #### C MONSE, CMP, ####[facility] ([id number])[address] [address], [place] [address] Hematocrit (Bld) [Volume fraction] 28.8 % Low 35-47 [facility] Comment on above: Performed By: #### C MONSE, CMP, ####[facility] ([id number])[address] [address] Hemoglobin (Bld) [Mass/Vol] 9.6 g/dL Low 11.7-15.5 [facility] Comment on above: Performed By: #### C MONSE, CMP, ####[facility] ([id number])[address] [address], [place] [address] Lymphocytes (Bld) [#/Vol] 1.0 10*3/uL Normal 1.0-3.5 [facility] Comment on above: Performed By: #### Dru SHEA CMP, ####[facility] ([id number])[address] [place] [address] Lymphocytes/100 WBC (Bld) 10.4 % Normal [facility] Comment on above: Performed By: #### Dru SHEA, CMP, ####[facility] ([id number])[address], [address] [address] MCH (RBC) [Entitic mass] 29.7 pg Normal 27-34 [facility] Comment on above: Performed By: #### Dru SHEA, CMP, ####[facility] ([id number])[address], [address] [address] MCHC (RBC) [Mass/Vol] 33.4 g/dL Normal 32-36 [facility] Comment on above: Performed By: #### Dru SHEA, [facility], ####[facility] ([id number])[address] [address], [place] [address] MCV (RBC) [Entitic vol] 89 fL Normal 80-100 [facility] Comment on above: Performed By: #### Dru SHEA, CMP, ####[facility] ([id number])[address] [address] [address] Monocytes (Bld) [#/Vol] 1.1 10*3/uL High 0-0.9 [facility] Comment on above: Performed By: #### Dru SHEA, CMP, ####[facility] ([id number])[address], [address] [address] Monocytes/100 WBC (Bld) 10.6 % Normal [facility] Comment on above: Performed By: #### C TOO SHEA, ####[facility] ([id number])[address], [address] [address] Neutrophils/100 WBC (Bld) 76.2 % Normal [facility] Comment on above: Performed By: #### Dru SHEA CMP, ####[facility] ([id number])[address] [address], [place] [address] Platelet mean volume (Bld) [Entitic vol] 10.0 fL Normal 7-12 [facility] Comment on above: Performed By: #### Dru SHEA CMP, ####[facility] ([id number])[address] [address] [place] [address] Platelets (Bld) [#/Vol] 144 10*3/uL Low 150-450 [facility] Comment on above: Performed By: #### Dru SHEA CMP, ####[facility] ([id number])[address] [address], [place] [address] RBC COUNT 3.24 X10E12/L Low 3.80-5.20 [facility] Comment on above: Performed By: #### Dru SHEA CMP, ####[facility] ([id number])[address] [address] [address] WBC (Bld) [#/Vol] 10.0 10*3/uL Normal 4.0-11.0 [facility] Comment on above: Performed By: #### Dru SHEA CMP, ####[facility] ([id number])[address], [address], [place] [address] COMPREHENSIVE METABOLIC PANE Elver 11-26-2023 Albumin [Mass/Vol] 3.0 g/dL Low 3.2-5.3 [facility] Comment on above: Performed By: #### C MONSE, CMP, ####[facility] ([id number])[address], [address], [place] [address] ALP [Catalytic activity/Vol] 135 U/L High 39-130 [facility] Comment on above: Performed By: #### C MONSE, CMP, ####[facility] ([id number])[address], [address], [place] [address] ALT [Catalytic activity/Vol] 23 U/L Normal 0-31 [facility] Comment on above: Performed By: #### C MONSE, CMP, ####[facility] ([id number])[address], [address], [place] [address] Anion gap [Moles/Vol] 12 mmol/L Normal 5-15 [facility] Comment on above: Performed By: #### C MOSNE, CMP, ####[facility] ([id number])[address], [address], [place] [address] AST [Catalytic activity/Vol] 25 U/L Normal 0-41 [facility] Comment on above: Performed By: #### Dru BCA, CMP, ####[facility] ([id number])[address], [address], [place] [address] Bilirubin [Mass/Vol] 0.7 mg/dL Normal 0.3-1.2 [facility] Comment on above: Performed By: #### C BCA, CMP, ####[facility] ([id number])[address], [address], [place] [address] Calcium [Mass/Vol] 8.2 mg/dL Low 8.5-10.5 [facility] Comment on above: Performed By: #### C MONSE CMP, ####[facility] ([id number])[address], [address], [place] [address] Chloride [Moles/Vol] 102 mmol/L Normal 98-109 [facility] Comment on above: Performed By: #### C MONSE [facility], ####[facility] ([id number])[address], [address], [place] [address] CO2 [Moles/Vol] 28 mmol/L Normal 22-32 [facility] Comment on above: Performed By: #### C MONSE [facility], ####[facility] ([id number])[address], [address], [place] [address] Creatinine [Mass/Vol] 1.40 mg/dL High 0.40-1.00 [facility] Comment on above: Result Comment: METH OD TRACEABLE TO IDMS STANDARD Performed By: #### C MONSE [facility], ####[facility] ([id number])[address], [address] [place] [address] GFR/1.73 sq M.predicted among non-blacks MDRD (S/P/Bld) [Vol rate/Area] 41 mL/min/{1.73_m2} Low >59 [facility] Comment on above: Result Comment: Repo rted eGFR is based on theCKD-EPI 2020 equation that doesnot use a race coefficient. Performed By: #### C MONSE [facility], ####[facility] ([id number])[address], [address], [place] [address] Glucose [Mass/Vol] 173 mg/dL High 65-99 [facility] Comment on above: Performed By: #### C MONSE [facility], ####[facility] ([id number])[address], [address], [place] [address] Potassium [Moles/Vol] 3.6 mmol/L Normal 3.5-5.0 [facility] Comment on above: Performed By: #### C MONSE, [facility], [address]-0 ####[facility] ([id number])[address], [address] [place] [address] Protein [Mass/Vol] 6.4 g/dL Normal 6.0-8.0 [facility] Comment on above: Performed By: #### C BCA, CMP, 02004-6 ####[facility] ([id number])[address], [address] [place] [address] Sodium [Moles/Vol] 142 mmol/L Normal 134-146 [facility] Comment on above: Performed By: #### Dru SHEA, CMP, 99452-5 ####[facility] ([id number])[address], [address] [place] [address] Urea nitrogen [Mass/Vol] 70 mg/dL High 5-27 [facility] Comment on above: Performed By: #### C MONSE, [facility], [address]-7 ####[facility] ([id number])[address], [address] [place] [address] DIGOXINon 11-26-2023 Digoxin [Mass/Vol] 1.0 ng/mL Normal 0.8-2.0 [facility] Comment on above: Performed By: #### 1 0535-3 ####[facility] ([id number])[address], [address] [place] [address] Glucose Glucometer (BldC) [M ass/Vol]on 11-26-2023 Glucose [Mass/Vol] 177 mg/dL High 65-99 [facility] Glucose [Mass/Vol] 323 mg/dL High 65-99 [facility] Glucose [Mass/Vol] 175 mg/dL High 65-99 [facility] Glucose [Mass/Vol] 207 mg/dL High 65-99 [facility] HGB AND HCTon 11-26-2023 Hematocrit (Bld) [Volume fraction] 28.2 % Low 35-47 [facility] Comment on above: Performed By: #### H H ####[facility] ([id number])[address], [address], [place] [address] Hemoglobin (Bld) [Mass/Vol] 9.3 g/dL Low 11.7-15.5 [facility] Comment on above: Performed By: #### H H ####[facility] ([id number])[address], [address], [place] [address] Hematocrit (Bld) [Volume fraction] 26.8 % Low 35-47 [facility] Comment on above: Performed By: #### H H ####[facility] ([id number])[address] [address] [place] [address] Hemoglobin (Bld) [Mass/Vol] 8.6 g/dL Low 11.7-15.5 [facility] Comment on above: Performed By: #### H H ####[facility] ([id number])[address] [address] [place] [address] MAGNESIUMon 11-26-2023 Magnesium [Mass/Vol] 2.2 mg/dL Normal 1.8-2.6 [facility] Comment on above: Performed By: #### C BCA, CMP, 05396-4 ####[facility] ([id number])[address] [address] [place] [address], [place] [address] POTASSIUMon 11-26-2023 Potassium [Moles/Vol] 5.6 mmol/L High 3.5-5.0 [facility] Comment on above: Performed By: #### 2 823-3 ####[facility] ([id number])[address] [address] [place] [address] CBC AND AUTO DIFFon 11-25-19 24 ABSOLUTE BASOPHIL 0.1 X10E9/L Normal 0.0-0.2 [facility] Comment on above: Performed By: #### C TOO SHEA, ####[facility] ([id number])[address], [address] [address] ABSOLUTE NEUTROPHIL 7.8 X10E9/L High 1.5-6.6 [facility] Comment on above: Performed By: #### C TOO SHEA, ####[facility] ([id number])[address], [address], [place] [address] Basophils/100 WBC (Bld) 1.0 % Normal [facility] Comment on above: Performed By: #### C TOO SHEA, ####[facility] ([id number])[address], [address], [place] [address] Eosinophils (Bld) [#/Vol] 0.2 10*3/uL Normal 0.0-0.4 [facility] Comment on above: Performed By: #### Dru SHEA CMP, ####[facility] ([id number])[address], [address], [place] [address] Eosinophils/100 WBC (Bld) 1.5 % Normal [facility] Comment on above: Performed By: #### Dru SHEA CMP, ####[facility] ([id number])[address] [address], [place] [address] Erythrocyte distribution width (RBC) [Ratio] 20.3 % High 11.5-15.0 [facility] Comment on above: Performed By: #### C MONSE CMP, ####[facility] ([id number])[address] [address] [address] Hematocrit (Bld) [Volume fraction] 30.5 % Low 35-47 [facility] Comment on above: Performed By: #### C BCA, CMP, ####[facility] ([id number])[address] [address], [place] [address] Hemoglobin (Bld) [Mass/Vol] 10.1 g/dL Low 11.7-15.5 [facility] Comment on above: Performed By: #### C MONSE, CMP, ####[facility] ([id number])[address] [address] [place] [address] Lymphocytes (Bld) [#/Vol] 1.2 10*3/uL Normal 1.0-3.5 [facility] Comment on above: Performed By: #### Dru SHEA, CMP, ####[facility] ([id number])[address] [address] Lymphocytes/100 WBC (Bld) 11.4 % Normal [facility] Comment on above: Performed By: #### Dru SHEA, CMP, ####[facility] ([id number])[address] [address] MCH (RBC) [Entitic mass] 29.6 pg Normal 27-34 [facility] Comment on above: Performed By: #### Dru SHEA, CMP, ####[facility] ([id number])[address] [address] MCHC (RBC) [Mass/Vol] 33.0 g/dL Normal 32-36 [facility] Comment on above: Performed By: #### C MONSE, CMP, ####[facility] ([id number])[address] [address] MCV (RBC) [Entitic vol] 90 fL Normal 80-100 [facility] Comment on above: Performed By: #### Dru SHEA, CMP, ####[facility] ([id number])[address], [address], [place] [address] Monocytes (Bld) [#/Vol] 1.1 10*3/uL High 0-0.9 [facility] Comment on above: Performed By: #### Dru SHEA, CMP, ####[facility] ([id number])[address], [address], [place] [address] Monocytes/100 WBC (Bld) 10.3 % Normal [facility] Comment on above: Performed By: #### Dru SHEA, CMP, ####[facility] ([id number])[address], [address], [place] [address] Neutrophils/100 WBC (Bld) 75.8 % Normal [facility] Comment on above: Performed By: #### Dru SHEA, CMP, ####[facility] ([id number])[address], [address], [place] [address] Platelet mean volume (Bld) [Entitic vol] 9.7 fL Normal 7-12 [facility] Comment on above: Performed By: #### Dru SHEA, CMP, ####[facility] ([id number])[address] [address], [place] [address] Platelets (Bld) [#/Vol] 145 10*3/uL Low 150-450 [facility] Comment on above: Performed By: #### Dru BCA, CMP, ####[facility] ([id number])[address], [address], [place] [address] RBC COUNT 3.40 X10E12/L Low 3.80-5.20 [facility] Comment on above: Performed By: #### Dru BCA, CMP, ####[facility] ([id number])[address], [address], [place] [address] WBC (Bld) [#/Vol] 10.3 10*3/uL Normal 4.0-11.0 [facility] Comment on above: Performed By: #### C BCA, CMP, ####[facility] ([id number])[address], [address], [place] [address] COMPREHENSIVE METABOLIC PANE Elver 11-25-2023 Albumin [Mass/Vol] 3.1 g/dL Low 3.2-5.3 [facility] Comment on above: Performed By: #### C BCA, CMP, ####[facility] ([id number])[address], [address], [place] [address] ALP [Catalytic activity/Vol] 144 U/L High 39-130 [facility] Comment on above: Performed By: #### C BCA, CMP, ####[facility] ([id number])[address], [address], [place] [address] ALT [Catalytic activity/Vol] 28 U/L Normal 0-31 [facility] Comment on above: Performed By: #### C BCA, CMP, 30144-5 ####[facility] ([id number])[address], [address], [place] [address] Anion gap [Moles/Vol] 10 mmol/L Normal 5-15 [facility] Comment on above: Performed By: #### C BCA, CMP, ####[facility] ([id number])[address], [address], [place] [address] AST [Catalytic activity/Vol] 32 U/L Normal 0-41 [facility] Comment on above: Performed By: #### C BCA, CMP, 91365-9 ####[facility] ([id number])[address], [address], [place] [address] Bilirubin [Mass/Vol] 0.7 mg/dL Normal 0.3-1.2 [facility] Comment on above: Performed By: #### C TOO SHEA, ####[facility] ([id number])[address], [address] [place] [address] Calcium [Mass/Vol] 8.4 mg/dL Low 8.5-10.5 [facility] Comment on above: Performed By: #### C MONSE CMP, ####[facility] ([id number])[address] [address], [place] [address] Chloride [Moles/Vol] 96 mmol/L Low 98-109 [facility] Comment on above: Performed By: #### C TOO SHEA, ####[facility] ([id number])[address], [address], [place] [address] CO2 [Moles/Vol] 31 mmol/L Normal 22-32 [facility] Comment on above: Performed By: #### C TOO SHEA, ####[facility] ([id number])[address], [address] [place] [address] Creatinine [Mass/Vol] 1.38 mg/dL High 0.40-1.00 [facility] Comment on above: Result Comment: METH OD TRACEABLE TO IDMS STANDARD Performed By: #### C TOO SHEA, ####[facility] ([id number])[address] [address] [address] GFR/1.73 sq M.predicted among non-blacks MDRD (S/P/Bld) [Vol rate/Area] 42 mL/min/{1.73_m2} Low >59 [facility] Comment on above: Result Comment: Repo rted eGFR is based on theCKD-EPI 2020 equation that doesnot use a race coefficient. Performed By: #### C BCA CMP, ####[facility] ([id number])[address], [address], [place] [address] Glucose [Mass/Vol] 156 mg/dL High 65-99 [facility] Comment on above: Performed By: #### C MONSE, CMP, 68409-3 ####[facility] ([id number])[address], [address], [place] [address] Potassium [Moles/Vol] 3.5 mmol/L Normal 3.5-5.0 [facility] Comment on above: Performed By: #### C MONSE, CMP, 81660-2 ####[facility] ([id number])[address], [address], [place] [address] Protein [Mass/Vol] 6.3 g/dL Normal 6.0-8.0 [facility] Comment on above: Performed By: #### Dru SHEA CMP, ####[facility] ([id number])[address], [address], [place] [address] Sodium [Moles/Vol] 137 mmol/L Normal 134-146 [facility] Comment on above: Performed By: #### Dru SHEA, CMP, ####[facility] ([id number])[address], [address], [place] [address] Urea nitrogen [Mass/Vol] 83 mg/dL High 5-27 [facility] Comment on above: Performed By: #### Dru SHEA, CMP, ####[facility] ([id number])[address], [address], [place] [address] Glucose Glucometer (dC) [M ass/Vol]on 11-25-2023 Glucose [Mass/Vol] 166 mg/dL High 65-99 [facility] Glucose [Mass/Vol] 196 mg/dL High 65-99 [facility] Glucose [Mass/Vol] 197 mg/dL High 65-99 [facility] Glucose [Mass/Vol] 212 mg/dL High 65-99 [facility] Glucose [Mass/Vol] 203 mg/dL High 65-99 [facility] MAGNESIUMon 11-25-2023 Magnesium [Mass/Vol] 2.3 mg/dL Normal 1.8-2.6 [facility] Comment on above: Performed By: #### C BCA, CMP, 93113-6 ####[facility] ([id number])[address], [address] [place] [address] Magnesium Ionized ISE (Bld) [Moles/Vol]on 11-25-2023 Magnesium [Moles/Vol] 0.64 mmol/L Normal 0.45-0.74 [facility] Comment on above: Result Comment: NEW REFERENCE RANGE Performed By: #### 7 3572-0 ####[facility] ([id number])[address] [address] [place] [address] TRIGLYCERIDEon 11-25-2023 Triglyceride [Mass/Vol] 198 mg/dL High 27-150 [facility] Comment on above: Performed By: #### 2 571-8 ####[facility] ([id number])[address], [address] [place] [address] URINALYSISon 11-25-2023 Bilirubin Ql (U) Negative Normal NEG [facility] Comment on above: Performed By: #### U A ####[facility] ([id number])[address] [address] [place] [address] BLOOD/HGB Trace Abnormal NEG [facility] Comment on above: Performed By: #### U A ####[facility] ([id number])[address], [address] [place] [address] Color (U) YELLOW Normal YELLOW [facility] Comment on above: Performed By: #### U A ####[facility] ([id number])[address], [place] [address] Glucose Ql (U) Negative Normal NEG [facility] Comment on above: Performed By: #### U A ####[facility] ([id number])[address], [address], [place] [address] GRANULAR CASTS 8 /lpf High 0 [facility] Comment on above: Performed By: #### U A ####[facility] ([id number])[address], [address], [place] [address] Hyaline casts LM Ql (Urine sed) 11 /lpf High 0-2 [facility] Comment on above: Performed By: #### U A ####[facility] ([id number])[address], [address], [place] [address] Ketones Ql (U) Negative Normal NEG [facility] Comment on above: Performed By: #### U A ####[facility] ([id number])[address], [address], [place] [address] Leukocyte esterase Test strip Ql (U) MODERATE Abnormal NEG [facility] Comment on above: Performed By: #### U A ####[facility] ([id number])[address], [address], [place] [address] MUCOUS PRESENT Abnormal NONE [facility] Comment on above: Performed By: #### U A ####[facility] ([id number])[address], [address], [place] [address] Nitrite Ql (U) Negative Normal NEG [facility] Comment on above: Performed By: #### U A ####[facility] ([id number])[address], [address], [place] [address] pH (U) 7.5 [pH] Normal 5.0-8.5 [facility] Comment on above: Performed By: #### U A ####[facility] ([id number])[address] [address] [place] [address] Protein Ql (U) Trace Abnormal NEG [facility] Comment on above: Performed By: #### U A ####[facility] ([id number])[address] [address] [place] [address] R.B.CELLS 2 /hpf Normal 0-5 [facility] Comment on above: Performed By: #### U A ####[facility] ([id number])[address] [address] [place] [address] Specific gravity (U) [Rel density] 1.016 Normal 1.003-1.035 [facility] Comment on above: Performed By: #### U A ####[facility] ([id number])[address] [address] SQUAMOUS EPITHELIUM 2 /hpf Normal 0-5 [facility] Comment on above: Performed By: #### U A ####[facility] ([id number])[address] [address] [place] [address] TRANSITIONAL EPITH <1 High 0 [facility] Comment on above: Performed By: #### U A ####[facility] ([id number])[address] [address] TURBIDITY HAZY Abnormal CLEAR [facility] Comment on above: Performed By: #### U A ####[facility] ([id number])[address] [address] [place] [address], [place] [address] Urinalysis dipstick W Reflex Microscopic panel (U) URINE RECEIVED WITHOUT PRESERVATIVE-DELAYS IN TRANSPORT MAY AFFECT RESULTS.INTERPRET WITH CAUTION AND CLINICAL CORRELATION IS RECOMMENDED. Normal [facility] Comment on above: Performed By: #### U A ####[facility] ([id number])[address] [address] [place] [address] Urobilinogen (U) [Mass/Vol] mg/dL Normal <1.1 [facility] Comment on above: Performed By: #### U A ####[facility] ([id number])Counts include 234 beds at the [facility], [address] [place] [address] W.B.CELLS 25 /hpf High 0-5 [facility] Comment on above: Performed By: #### U A ####[facility] ([id number])[address] [place] [address], [address] [place] [id number] URINE CULTUREon 11-25-2023 Bacteria identified Cx Nom (U) SPECIMEN NOTES URINE RECEIVED WITHOUT PRESERVATIVE CULTURE RESULTS >100,000 ORGANISMS/mL DEBRA ALBICANS URINE RECEIVED WITHOUT PRESERVATIVE-DELAYS IN TRANSPORT MAY AFFECT RESULTS.INTERPRET WITH CAUTION AND CLINICAL CORRELATION IS RECOMMENDED. Normal [facility] Comment on above: Performed By: #### 6 30-4 ####[facility] ([id number])0 [facility], [address] [place] [id number] Glucose Glucometer (BldC) [M ass/Vol]on 11-24-2023 Glucose [Mass/Vol] 230 mg/dL High 65-99 [facility] Glucose [Mass/Vol] 197 mg/dL High 65-99 [facility] Glucose [Mass/Vol] 235 mg/dL High 65-99 [facility] Glucose [Mass/Vol] 125 mg/dL High 65-99 [facility] CBC AND AUTO DIFFon 11-23-19 24 ABSOLUTE BASOPHIL 0.1 X10E9/L Normal 0.0-0.2 [facility] Comment on above: Performed By: #### C MONSE CMP, , 2776-09 ####[facility] ([id number])[address] [facility], [address] [place] [address] ABSOLUTE NEUTROPHIL 7.5 X10E9/L High 1.5-6.6 [facility] Comment on above: Performed By: #### C MONSE CMP, , 2776-09 ####[facility] ([id number])[address], [address], [place] [address] Basophils/100 WBC (Bld) 1.0 % Normal [facility] Comment on above: Performed By: #### C MONSE, CMP, , 2776-09 ####[facility] ([id number])[address], [address], [place] [address] Eosinophils (Bld) [#/Vol] 0.3 10*3/uL Normal 0.0-0.4 [facility] Comment on above: Performed By: #### C MONSE, CMP, , 2776-09 ####[facility] ([id number])[address], [address], [place] [address] Eosinophils/100 WBC (Bld) 2.6 % Normal [place] [facility] Comment on above: Performed By: #### C MONSE, CMP, , 2776-09 ####[facility] ([id number])[address] [address], [place] [address] Erythrocyte distribution width (RBC) [Ratio] 20.4 % High 11.5-15.0 [facility] Comment on above: Performed By: #### C MONSE CMP, , 2776-09 ####[facility] ([id number])[address], [address] [place] [address] Hematocrit (Bld) [Volume fraction] 29.5 % Low 35-47 [facility] Comment on above: Performed By: #### C BCA, CMP, , 2776-09 ####[facility] ([id number])[address], [address] [place] [address] Hemoglobin (Bld) [Mass/Vol] 9.8 g/dL Low 11.7-15.5 [facility] Comment on above: Performed By: #### C BCA, CMP, , 2776-09 ####[facility] ([id number])[address] [address] [place] [address] Lymphocytes (Bld) [#/Vol] 1.0 10*3/uL Normal 1.0-3.5 [facility] Comment on above: Performed By: #### C MONSE [facility], , 2776-09 ####[facility] ([id number])[address] [address] [place] [address] Lymphocytes/100 WBC (Bld) 10.5 % Normal [facility] Comment on above: Performed By: #### Dru SHEA [facility], , 2776-09 ####[facility] ([id number])[address] [address] [place] [address] MCH (RBC) [Entitic mass] 29.4 pg Normal 27-34 [facility] Comment on above: Performed By: #### C MONSE [facility], , 2776-09 ####[facility] ([id number])[address] [address] [place] [address] MCHC (RBC) [Mass/Vol] 33.2 g/dL Normal 32-36 [facility] Comment on above: Performed By: #### Dru SHEA CMP, , 2776-09 ####[facility] ([id number])[address] [address] [place] [address] MCV (RBC) [Entitic vol] 89 fL Normal 80-100 [facility] Comment on above: Performed By: #### Dru SHEA, CMP, , 2776-09 ####[facility] ([id number])[address] [address] [place] [address], [place] [address] Monocytes (Bld) [#/Vol] 0.9 10*3/uL Normal 0-0.9 [facility] Comment on above: Performed By: #### C BCA, CMP, , 2776-09 ####[facility] ([id number])[address], [address], [place] [address] Monocytes/100 WBC (Bld) 9.1 % Normal [facility] Comment on above: Performed By: #### C BCA, CMP, , 2776-09 ####[facility] ([id number])[address], [address], [place] [address] Neutrophils/100 WBC (Bld) 76.8 % Normal [facility] Comment on above: Performed By: #### C BCA, CMP, , 2776-09 ####[facility] ([id number])[address], [address], [place] [address] Platelet mean volume (Bld) [Entitic vol] 9.9 fL Normal 7-12 [facility] Comment on above: Performed By: #### C BCA, CMP, , 2776-09 ####[facility] ([id number])[address], [address], [place] [address] Platelets (Bld) [#/Vol] 164 10*3/uL Normal 150-450 [facility] Comment on above: Performed By: #### Dru BCA, CMP, , 2776-09 ####[facility] ([id number])[address], [address], [place] [address] RBC COUNT 3.33 X10E12/L Low 3.80-5.20 [facility] Comment on above: Performed By: #### C BCA, CMP, , 2776-09 ####[facility] ([id number])[address], [address], [place] [address] WBC (Bld) [#/Vol] 9.7 10*3/uL Normal 4.0-11.0 [facility] Comment on above: Performed By: #### C BCA, CMP, , 2776-09 ####[facility] ([id number])[address], [address], [place] [address] COMPREHENSIVE METABOLIC PANE Elver 11-23-2023 Albumin [Mass/Vol] 2.9 g/dL Low 3.2-5.3 [facility] Comment on above: Performed By: #### C BCA, CMP, , 2776-09 ####[facility] ([id number])[address], [address], [place] [address] ALP [Catalytic activity/Vol] 144 U/L High 39-130 [facility] Comment on above: Performed By: #### C BCA, CMP, , 2776-09 ####[facility] ([id number])[address], [address], [place] [address] ALT [Catalytic activity/Vol] 19 U/L Normal 0-31 [facility] Comment on above: Performed By: #### C BCA, CMP, , 2776-09 ####[facility] ([id number])[address], [address], [place] [address] Anion gap [Moles/Vol] 11 mmol/L Normal 5-15 [facility] Comment on above: Performed By: #### C BCA, CMP, , 2776-09 ####[facility] ([id number])[address], [address], [place] [address] AST [Catalytic activity/Vol] 24 U/L Normal 0-41 [facility] Comment on above: Performed By: #### C BCA, CMP, , 2776-09 ####[facility] ([id number])[address], [address], [place] [address] Bilirubin [Mass/Vol] 0.7 mg/dL Normal 0.3-1.2 [facility] Comment on above: Performed By: #### C BCA, CMP, , 2776-09 ####[facility] ([id number])[address] [address] [place] [address] Calcium [Mass/Vol] 8.6 mg/dL Normal 8.5-10.5 [facility] Comment on above: Performed By: #### C BCA, CMP, , 2776-09 ####[facility] ([id number])[address] [address] [place] [address] Chloride [Moles/Vol] 96 mmol/L Low 98-109 [facility] Comment on above: Performed By: #### C BCA, CMP, , 2776-09 ####[facility] ([id number])[address] [address] [place] [address] CO2 [Moles/Vol] 32 mmol/L Normal 22-32 [facility] Comment on above: Performed By: #### C BCA, CMP, , 2776-09 ####[facility] ([id number])[address] [address] [place] [address] Creatinine [Mass/Vol] 1.32 mg/dL High 0.40-1.00 [facility] Comment on above: Result Comment: METH OD TRACEABLE TO IDMS STANDARD Performed By: #### C BCA, CMP, , 2776-09 ####[facility] ([id number])[address] [address] [place] [address] GFR/1.73 sq M.predicted among non-blacks MDRD (S/P/Bld) [Vol rate/Area] 45 mL/min/{1.73_m2} Low >59 [facility] Comment on above: Result Comment: Repo rted eGFR is based on theCKD-EPI 2020 equation that doesnot use a race coefficient. Performed By: #### C BCA, CMP, , 2776-09 ####[facility] ([id number])[address], [address], [place] [address] Glucose [Mass/Vol] 131 mg/dL High 65-99 [facility] Comment on above: Performed By: #### C BCA, CMP, , 2776-09 ####[facility] ([id number])[address], [address], [place] [address] Potassium [Moles/Vol] 3.8 mmol/L Normal 3.5-5.0 [facility] Comment on above: Performed By: #### C BCA, CMP, , 2776-09 ####[facility] ([id number])[address], [address], [place] [address] Protein [Mass/Vol] 6.4 g/dL Normal 6.0-8.0 [facility] Comment on above: Performed By: #### C BCA, CMP, , 2776-09 ####[facility] ([id number])[address], [address], [place] [address] Sodium [Moles/Vol] 139 mmol/L Normal 134-146 [facility] Comment on above: Performed By: #### C BCA, CMP, , 2776-09 ####[facility] ([id number])[address], [address], [place] [address] Urea nitrogen [Mass/Vol] 84 mg/dL High 5-27 [facility] Comment on above: Performed By: #### C BCA, CMP, , 2776-09 ####[facility] ([id number])[address], [address], [place] [address] FL SWALLOW MOTILITY FUNCTION on 11-23-2023 FL SWALLOW MOTILITY FUNCTION Normal [facility] Glucose Glucometer (BldC) [M ass/Vol]on 11-23-2023 Glucose [Mass/Vol] 196 mg/dL High 65-99 [facility] Glucose [Mass/Vol] 220 mg/dL High 65-99 [facility] Glucose [Mass/Vol] 140 mg/dL High 65-99 [facility] Glucose [Mass/Vol] 222 mg/dL High 65-99 [facility] MAGNESIUMon 11-23-2023 Magnesium [Mass/Vol] 2.1 mg/dL Normal 1.8-2.6 [facility] Comment on above: Performed By: #### C TOO SHEA, , 2776-1 ####[facility] ([id number])[address], [address], [place] [address] PHOSPHORUSon 11-23-2023 Phosphate [Mass/Vol] 2.6 mg/dL Normal 2.4-4.9 [facility] Comment on above: Performed By: #### Dru SHEA CMP, , 2776-09 ####[facility] ([id number])[address], [address], [place] [address] CBC AND AUTO DIFFon 11-22-19 ABSOLUTE BASOPHIL 0.1 X10E9/L Normal 0.0-0.2 [facility] Comment on above: Performed By: #### Dru SHEA CMP, , 2776-09 ####[facility] ([id number])[address], [address], [place] [address] ABSOLUTE NEUTROPHIL 9.8 X10E9/L High 1.5-6.6 [facility] Comment on above: Performed By: #### Dru SHEA CMP, , 1 ####[facility] ([id number])[address], [address], [place] [address] Basophils/100 WBC (Bld) 1.0 % Normal [facility] Comment on above: Performed By: #### Dru SHAE CMP, , 2776-09 ####[facility] ([id number])[address] [address], [place] [address] Eosinophils (Bld) [#/Vol] 0.2 10*3/uL Normal 0.0-0.4 [facility] Comment on above: Performed By: #### C MONSE [facility], , 2776-09 ####[facility] ([id number])[address] [address] [place] [address] Eosinophils/100 WBC (Bld) 1.4 % Normal [facility] Comment on above: Performed By: #### Dru SHEA [facility], , 2776-09 ####[facility] ([id number])[address] [address] Erythrocyte distribution width (RBC) [Ratio] 20.9 % High 11.5-15.0 [facility] Comment on above: Performed By: #### Dru SHEA [facility], , 2776-09 ####[facility] ([id number])[address] [address] Hematocrit (Bld) [Volume fraction] 32.5 % Low 35-47 [facility] Comment on above: Performed By: #### Dru SHEA CMP, , 2776-09 ####[facility] ([id number])[address] [address] Hemoglobin (Bld) [Mass/Vol] 10.8 g/dL Low 11.7-15.5 [facility] Comment on above: Performed By: #### Dru SHEA, CMP, , 2776-09 ####[facility] ([id number])[address] [address] Lymphocytes (Bld) [#/Vol] 1.1 10*3/uL Normal 1.0-3.5 [facility] Comment on above: Performed By: #### C MONSE CMP, , 2776-09 ####[facility] ([id number])[address], [address], [place] [address] Lymphocytes/100 WBC (Bld) 9.5 % Normal [facility] Comment on above: Performed By: #### C MONSE, CMP, , 2776-09 ####[facility] ([id number])[address], [address], [place] [address] MCH (RBC) [Entitic mass] 29.9 pg Normal 27-34 [facility] Comment on above: Performed By: #### Dru SHEA, CMP, , 2776-09 ####[facility] ([id number])[address], [address], [place] [address] MCHC (RBC) [Mass/Vol] 33.3 g/dL Normal 32-36 [facility] Comment on above: Performed By: #### Dru SHEA, CMP, , 2776-09 ####[facility] ([id number])[address], [address] [place] [address] MCV (RBC) [Entitic vol] 90 fL Normal 80-100 [facility] Comment on above: Performed By: #### Dru SHEA, CMP, , 2776-09 ####[facility] ([id number])[address] [address] [place] [address] Monocytes (Bld) [#/Vol] 0.8 10*3/uL Normal 0-0.9 [facility] Comment on above: Performed By: #### Dru BCA, CMP, , 2776-09 ####[facility] ([id number])[address], [address], [place] [address] Monocytes/100 WBC (Bld) 6.3 % Normal [facility] Comment on above: Performed By: #### C BCA, CMP, , 2776-09 ####[facility] ([id number])[address], [address] [place] [address] Neutrophils/100 WBC (Bld) 81.8 % Normal [facility] Comment on above: Performed By: #### C BCA, CMP, , 2776- ####[facility] ([id number])[address], [address], [place] [address] Platelet mean volume (Bld) [Entitic vol] 10.0 fL Normal 7-12 [facility] Comment on above: Performed By: #### C BCA, CMP, , 2776-09 ####[facility] ([id number])[address], [address] [place] [address] Platelets (Bld) [#/Vol] 122 10*3/uL Low 150-450 [facility] Comment on above: Performed By: #### C BCA, CMP, , 2776-09 ####[facility] ([id number])[address], [address] [address] RBC COUNT 3.62 X10E12/L Low 3.80-5.20 [facility] Comment on above: Performed By: #### C BCA, CMP, , 2776-09 ####[facility] ([id number])[address], [address] [place] [address] WBC (Bld) [#/Vol] 12.0 10*3/uL High 4.0-11.0 [facility] Comment on above: Performed By: #### C BCA, CMP, , 2776-09 ####[facility] ([id number])[address], [address], [place] [address] COMPREHENSIVE METABOLIC PANE Elver 11-22-2023 Albumin [Mass/Vol] 3.0 g/dL Low 3.2-5.3 [facility] Comment on above: Performed By: #### C BCA, CMP, , 2776-09 ####[facility] ([id number])[address], [address], [place] [address] ALP [Catalytic activity/Vol] 157 U/L High 39-130 [facility] Comment on above: Performed By: #### C BCA, CMP, , 2776-09 ####[facility] ([id number])[address], [address], [place] [address] ALT [Catalytic activity/Vol] 17 U/L Normal 0-31 [facility] Comment on above: Performed By: #### C BCA, CMP, , 2776-09 ####[facility] ([id number])[address], [address], [place] [address] Anion gap [Moles/Vol] 14 mmol/L Normal 5-15 [facility] Comment on above: Performed By: #### C BCA, CMP, , 2776-09 ####[facility] ([id number])[address], [address], [place] [address] AST [Catalytic activity/Vol] 32 U/L Normal 0-41 [facility] Comment on above: Performed By: #### C BCA, CMP, , 2776-09 ####[facility] ([id number])[address], [address], [place] [address] Bilirubin [Mass/Vol] 0.8 mg/dL Normal 0.3-1.2 [facility] Comment on above: Performed By: #### C BCA, CMP, , 2776-09 ####[facility] ([id number])[address], [address], [place] [address] Calcium [Mass/Vol] 9.0 mg/dL Normal 8.5-10.5 [facility] Comment on above: Performed By: #### C TOO SHEA, , 2776-09 ####[facility] ([id number])[address], [address], [place] [address] Chloride [Moles/Vol] 97 mmol/L Low 98-109 [facility] Comment on above: Performed By: #### C MONSE, CMP, , 2776-09 ####[facility] ([id number])[address], [address], [place] [address] CO2 [Moles/Vol] 28 mmol/L Normal 22-32 [facility] Comment on above: Performed By: #### C TOO SHEA, , 2776-09 ####[facility] ([id number])[address], [address], [place] [address] Creatinine [Mass/Vol] 1.34 mg/dL High 0.40-1.00 [facility] Comment on above: Result Comment: METH OD TRACEABLE TO IDMS STANDARD Performed By: #### C TOO SHEA, , 2776-09 ####[facility] ([id number])[address] [address], [place] [address] GFR/1.73 sq M.predicted among non-blacks MDRD (S/P/Bld) [Vol rate/Area] 44 mL/min/{1.73_m2} Low >59 [facility] Comment on above: Result Comment: Repo rted eGFR is based on theCKD-EPI 2020 equation that doesnot use a race coefficient. Performed By: #### C MONSE, CMP, , 2776-09 ####[facility] ([id number])[address] [address], [place] [address] Glucose [Mass/Vol] 147 mg/dL High 65-99 [facility] Comment on above: Performed By: #### C BCA, CMP, , 2776-09 ####[facility] ([id number])[address] [place] [address] Potassium [Moles/Vol] 4.3 mmol/L Normal 3.5-5.0 [facility] Comment on above: Result Comment: SPEC IMEN HEMOLYZED, RESULTS INCREASEDMODERATELY HEMOLYZED Performed By: #### C BCA, CMP, , 2776-09 ####[facility] ([id number])[address] [place] [address] Protein [Mass/Vol] 6.7 g/dL Normal 6.0-8.0 [facility] Comment on above: Performed By: #### C MONSE, CMP, , 2776-09 ####[facility] ([id number])[address] [place] [address] Sodium [Moles/Vol] 139 mmol/L Normal 134-146 [facility] Comment on above: Performed By: #### C BCA, CMP, , 2776-09 ####[facility] ([id number])[address], [address], [place] [address] Urea nitrogen [Mass/Vol] 82 mg/dL High 5-27 [facility] Comment on above: Performed By: #### C BCA, CMP, , 2776-09 ####[facility] ([id number])[address] [place] [address] Glucose Glucometer (dC) [M ass/Vol]on 11-22-2023 Glucose [Mass/Vol] 186 mg/dL High 65-99 [facility] Glucose [Mass/Vol] 217 mg/dL High 65-99 [facility] Glucose [Mass/Vol] 158 mg/dL High 65-99 [facility] BEDSIDE GLUCOSE LAB >500 Critically high 65-99 [facility] Comment on above: Result Comment: SEE LAB RESULTS FOR CONFIRMATION BEDSIDE GLUCOSE LAB REQUEST CREDITED Normal 65-99 [facility] Comment on above: Result Comment: QUES TIONABLE RESULTSCorrected on 11/22 AT 0831: Previously reported as >500 SEE LAB RESULTS FOR CONFIRMATION Glucose [Mass/Vol] 186 mg/dL High 65-99 [facility] MAGNESIUMon 11-22-2023 Magnesium [Mass/Vol] 2.0 mg/dL Normal 1.8-2.6 [facility] Comment on above: Performed By: #### C MONSE, CMP, , 2777-1 ####[facility] ([id number])[address], [place] [address] PHOSPHORUSon 11-22-2023 Phosphate [Mass/Vol] 2.9 mg/dL Normal 2.4-4.9 [facility] Comment on above: Result Comment: SPEC IMEN HEMOLYZED, RESULTS INCREASEDMODERATELY HEMOLYZED Performed By: #### C MONSE CMP, , 2776-09 ####[facility] ([id number])[address], [place] [address] 36on 11-21-2023 36 Thanks for the update Normal [facility] 36 Per patients chart s he has other ID related issues other than UTI. She is on the schedule with Yoseph [employer] for the Hospital follow up on 11/28 Normal [facility] CBC AND AUTO DIFFon 11-21-19 24 ABSOLUTE BASOPHIL 0.1 X10E9/L Normal 0.0-0.2 [facility] Comment on above: Performed By: #### C MONSE, CMP, , 2777-1 ####[facility] ([id number])[address], [place] [address] ABSOLUTE NEUTROPHIL 7.8 X10E9/L High 1.5-6.6 [facility] Comment on above: Performed By: #### C BCA, CMP, , 2776-09 ####[facility] ([id number])[address] [place] [address] Basophils/100 WBC (Bld) 1.1 % Normal [facility] Comment on above: Performed By: #### C BCA, CMP, , 2776-09 ####[facility] ([id number])[address], [address], [place] [address] Eosinophils (Bld) [#/Vol] 0.2 10*3/uL Normal 0.0-0.4 [facility] Comment on above: Performed By: #### C MONSE, [facility], , 2776-09 ####[facility] ([id number])[address] [address], [place] [address] Eosinophils/100 WBC (Bld) 2.1 % Normal [facility] Comment on above: Performed By: #### C MONSE, [facility], , 2776-09 ####[facility] ([id number])[address] [address] [place] [address] Erythrocyte distribution width (RBC) [Ratio] 21.5 % High 11.5-15.0 [facility] Comment on above: Performed By: #### C MONSE, CMP, , 2776-09 ####[facility] ([id number])[address] [address] [place] [address] Hematocrit (Bld) [Volume fraction] 26.7 % Low 35-47 [facility] Comment on above: Performed By: #### C BCA, CMP, , 2776-09 ####[facility] ([id number])[address] [place] [address] Hemoglobin (Bld) [Mass/Vol] 9.0 g/dL Low 11.7-15.5 [facility] Comment on above: Performed By: #### C MONSE CMP, , 2776-09 ####[facility] ([id number])[address] [address] [place] [address] Lymphocytes (Bld) [#/Vol] 1.0 10*3/uL Normal 1.0-3.5 [facility] Comment on above: Performed By: #### C MONSE CMP, , 2776-09 ####[facility] ([id number])[address], [place] [address] Lymphocytes/100 WBC (Bld) 9.8 % Normal [facility] Comment on above: Performed By: #### Dru SHEA CMP, , 2776-09 ####[facility] ([id number])[address] [place] [address] MCH (RBC) [Entitic mass] 29.9 pg Normal 27-34 [facility] Comment on above: Performed By: #### Dru SHEA CMP, , 2776-09 ####[facility] ([id number])[address] [address] [place] [address] MCHC (RBC) [Mass/Vol] 33.8 g/dL Normal 32-36 [facility] Comment on above: Performed By: #### Dru SHEA CMP, , 2776-09 ####[facility] ([id number])[address] [address] [place] [address] MCV (RBC) [Entitic vol] 89 fL Normal 80-100 [facility] Comment on above: Performed By: #### Dru SHEA CMP, , 2776-09 ####[facility] ([id number])[address], [place] [address] Monocytes (Bld) [#/Vol] 0.8 10*3/uL Normal 0-0.9 [facility] Comment on above: Performed By: #### C MONSE, CMP, , 2776-09 ####[facility] ([id number])[address] [address] Monocytes/100 WBC (Bld) 7.7 % Normal [facility] Comment on above: Performed By: #### C BCA, CMP, , 2776-09 ####[facility] ([id number])[address], [address] [address] Neutrophils/100 WBC (Bld) 79.3 % Normal [facility] Comment on above: Performed By: #### C BCA, CMP, , 2776-09 ####[facility] ([id number])[address], [address], [place] [address] Platelet mean volume (Bld) [Entitic vol] 10.0 fL Normal 7-12 [facility] Comment on above: Performed By: #### C BCA, CMP, , 2776-09 ####[facility] ([id number])[address], [address] [address] Platelets (Bld) [#/Vol] 165 10*3/uL Normal 150-450 [facility] Comment on above: Performed By: #### C BCA, CMP, , 2776-09 ####[facility] ([id number])[address], [address] [address] RBC COUNT 3.01 X10E12/L Low 3.80-5.20 [facility] Comment on above: Performed By: #### C BCA, CMP, , 2776-09 ####[facility] ([id number])[address], [address] [address] WBC (Bld) [#/Vol] 9.8 10*3/uL Normal 4.0-11.0 [facility] Comment on above: Performed By: #### C BCA, CMP, , 2776-09 ####[facility] ([id number])[address], [place] [address] COMPREHENSIVE METABOLIC PANE Elver 11-21-2023 Albumin [Mass/Vol] 3.0 g/dL Low 3.2-5.3 [facility] Comment on above: Performed By: #### C BCA, CMP, , 2776-09 ####[facility] ([id number])[address], [place] [address] ALP [Catalytic activity/Vol] 148 U/L High 39-130 [facility] Comment on above: Performed By: #### C BCA, CMP, , 2776-09 ####[facility] ([id number])[address], [place] [address] ALT [Catalytic activity/Vol] 23 U/L Normal 0-31 [facility] Comment on above: Performed By: #### C BCA, CMP, , 2776-09 ####[facility] ([id number])[address], [place] [address] Anion gap [Moles/Vol] 12 mmol/L Normal 5-15 [facility] Comment on above: Performed By: #### C BCA, CMP, , 2776-09 ####[facility] ([id number])[address], [address], [place] [address] AST [Catalytic activity/Vol] 26 U/L Normal 0-41 [facility] Comment on above: Performed By: #### C BCA, CMP, , 2776-09 ####[facility] ([id number])[address], [address], [place] [address] Bilirubin [Mass/Vol] 0.8 mg/dL Normal 0.3-1.2 [facility] Comment on above: Performed By: #### C BCA, CMP, , 2776-09 ####[facility] ([id number])[address], [address], [place] [address] Calcium [Mass/Vol] 8.5 mg/dL Normal 8.5-10.5 [facility] Comment on above: Performed By: #### C BCA, CMP, , 2776-09 ####[facility] ([id number])[address], [address], [place] [address] Chloride [Moles/Vol] 99 mmol/L Normal 98-109 [facility] Comment on above: Performed By: #### C BCA, CMP, , 2776-09 ####[facility] ([id number])[address], [address], [place] [address] CO2 [Moles/Vol] 29 mmol/L Normal 22-32 [facility] Comment on above: Performed By: #### C BCA, CMP, , 2776-09 ####[facility] ([id number])[address] [address] [place] [address] Creatinine [Mass/Vol] 1.34 mg/dL High 0.40-1.00 [facility] Comment on above: Result Comment: METH OD TRACEABLE TO IDMS STANDARD Performed By: #### C BCA, CMP, , 2776-09 ####[facility] ([id number])[address] [address], [place] [address] GFR/1.73 sq M.predicted among non-blacks MDRD (S/P/Bld) [Vol rate/Area] 44 mL/min/{1.73_m2} Low >59 [facility] Comment on above: Result Comment: Repo rted eGFR is based on theCKD-EPI 2020 equation that doesnot use a race coefficient. Performed By: #### C MONSE [facility], , 2776-09 ####[facility] ([id number])[address], [address], [place] [address] Glucose [Mass/Vol] 173 mg/dL High 65-99 [facility] Comment on above: Performed By: #### C MONSE [facility], , 2776-09 ####[facility] ([id number])[address] [address], [place] [address] Potassium [Moles/Vol] 4.1 mmol/L Normal 3.5-5.0 [facility] Comment on above: Performed By: #### C MONSE [facility], , 2776-09 ####[facility] ([id number])[address] [address], [place] [address] Protein [Mass/Vol] 6.3 g/dL Normal 6.0-8.0 [facility] Comment on above: Performed By: #### C MONSE [facility], , 2776-09 ####[facility] ([id number])[address] [address], [place] [address] Sodium [Moles/Vol] 140 mmol/L Normal 134-146 [facility] Comment on above: Performed By: #### C MONSE [facility], , 2776-09 ####[facility] ([id number])[address] [address], [place] [address] Urea nitrogen [Mass/Vol] 82 mg/dL High 5-27 [facility] Comment on above: Performed By: #### C MONSE [facility], , 2776-09 ####[facility] ([id number])[address] [address], [place] [address] Glucose Glucometer (BldC) [M ass/Vol]on 11-21-2023 Glucose [Mass/Vol] 177 mg/dL High 65-99 [facility] Glucose [Mass/Vol] 168 mg/dL High 65-99 [facility] Glucose [Mass/Vol] 169 mg/dL High 65-99 [facility] Glucose [Mass/Vol] 196 mg/dL High 65-99 [facility] MAGNESIUMon 11-21-2023 Magnesium [Mass/Vol] 2.0 mg/dL Normal 1.8-2.6 [facility] Comment on above: Performed By: #### C MONSE CMP, , 1 ####[facility] ([id number])[address], [address] [place] [address] Magnesium Ionized ISE (Bld) [Moles/Vol]on 11-21-2023 Magnesium [Moles/Vol] 0.57 mmol/L Normal 0.45-0.74 [facility] Comment on above: Result Comment: NEW REFERENCE RANGE Performed By: #### 7 3572-0 ####[facility] ([id number])[address], [address], [place] [address] PHOSPHORUSon 11-21-2023 Phosphate [Mass/Vol] 2.4 mg/dL Normal 2.4-4.9 [facility] Comment on above: Performed By: #### C MONSE CMP, , 2777 ####[facility] ([id number])[address], [address] [place] [address] XR CHEST 1 VWon 11-21-2023 XR CHEST 1 VW Normal [facility] COMPREHENSIVE METABOLIC PANE Elver 11-20-2023 Albumin [Mass/Vol] 2.8 g/dL Low 3.2-5.3 [facility] Comment on above: Performed By: #### C MONSE, CMP, , 2777- ####[facility] ([id number])[address], [address], [place] [address] ALP [Catalytic activity/Vol] 138 U/L High 39-130 [facility] Comment on above: Performed By: #### C BCA, CMP, , 2776-09 ####[facility] ([id number])[address], [address], [place] [address] ALT [Catalytic activity/Vol] 19 U/L Normal 0-31 [facility] Comment on above: Performed By: #### C BCA, CMP, , 2776-09 ####[facility] ([id number])[address], [address], [place] [address] Anion gap [Moles/Vol] 11 mmol/L Normal 5-15 [facility] Comment on above: Performed By: #### C BCA, CMP, , 2776-09 ####[facility] ([id number])[address], [address], [place] [address] AST [Catalytic activity/Vol] 21 U/L Normal 0-41 [facility] Comment on above: Performed By: #### C BCA, CMP, , 2776-09 ####[facility] ([id number])[address], [address], [place] [address] Bilirubin [Mass/Vol] 0.7 mg/dL Normal 0.3-1.2 [facility] Comment on above: Performed By: #### C BCA, CMP, , 2776-09 ####[facility] ([id number])[address], [address], [place] [address] Calcium [Mass/Vol] 7.9 mg/dL Low 8.5-10.5 [facility] Comment on above: Performed By: #### C BCA, CMP, , 2776-09 ####[facility] ([id number])[address], [address], [place] [address] Chloride [Moles/Vol] 105 mmol/L Normal 98-109 [facility] Comment on above: Performed By: #### C TOO SHEA, , 2776-09 ####[facility] ([id number])[address], [address], [place] [address] CO2 [Moles/Vol] 28 mmol/L Normal 22-32 [facility] Comment on above: Performed By: #### C TOO SHEA, , 2776-09 ####[facility] ([id number])[address] [address] [place] [address] Creatinine [Mass/Vol] 1.24 mg/dL High 0.40-1.00 [facility] Comment on above: Result Comment: METH OD TRACEABLE TO IDMS STANDARD Performed By: #### Dru SHEA CMP, , 2776-09 ####[facility] ([id number])[address] [address], [place] [address] GFR/1.73 sq M.predicted among non-blacks MDRD (S/P/Bld) [Vol rate/Area] 48 mL/min/{1.73_m2} Low >59 [facility] Comment on above: Result Comment: Repo rted eGFR is based on theCKD-EPI 2020 equation that doesnot use a race coefficient. Performed By: #### C TOO SHEA, , 2776-09 ####[facility] ([id number])[address] [address] [address] Glucose [Mass/Vol] 185 mg/dL High 65-99 [facility] Comment on above: Performed By: #### C TOO SHEA, , 2776-09 ####[facility] ([id number])[address] [address], [place] [address] Glucose Glucometer (BldC) [M ass/Vol]on 11-20-2023 Glucose [Mass/Vol] 183 mg/dL High 65-99 [facility] Glucose [Mass/Vol] 175 mg/dL High 65-99 [facility] MAGNESIUMon 11-20-2023 Magnesium [Mass/Vol] 2.0 mg/dL Normal 1.8-2.6 [facility] Comment on above: Performed By: #### C BCA, [facility], , 1 ####[facility] ([id number])[address], [address] [place] [address] PHOSPHORUSon 11-20-2023 Phosphate [Mass/Vol] 3.1 mg/dL Normal 2.4-4.9 [facility] Comment on above: Performed By: #### C MONSE, [facility], , 1 ####[facility] ([id number])[address], [address], [place] [address] POTASSIUMon 11-20-2023 Potassium [Moles/Vol] 4.9 mmol/L Normal 3.5-5.0 [facility] Comment on above: Performed By: #### 2 823-3 ####[facility] ([id number])[address], [address] [place] [address] Potassium [Moles/Vol] 3.8 mmol/L Normal 3.5-5.0 [facility] Comment on above: Performed By: #### 2 823-3 ####[facility] ([id number])[address], [address] [place] [address] XR CHEST 1 VWon 11-20-2023 XR CHEST 1 VW Normal [facility] 36on 11-07-2023 36 Patient on schedule for hospital follow up with ID. According to her chart she is currently in the hospital and is scheduled for surgery tomorrow 11/08. Will reach out to her in a few days to reschedule this visit to a more convenient time. Normal [facility] Telephoneon 11-07-2023 Telephone [phone] Correa 1955 F Date Provider Department Center 11/07/2023 [facility] No family history on file Normal [facility] Glucose Glucometer (BldC) [M ass/Vol]on 10-19-2023 Glucose [Mass/Vol] 198 mg/dL High 65-99 [facility] POTASSIUMon 10-19-2023 Potassium [Moles/Vol] 3.1 mmol/L Low 3.5-5.0 [facility] Comment on above: Performed By: #### [place], 06298-1, 05988-0, 33234-7, 41716-7, 15177-1, 2157-6, 44132-5, PINR, CBCA, TSHR #### [facility] ([id number]) [address] [place] [address], [place] [address] XR CHEST 1 VWon 10-19-2023 XR CHEST [...] Olson MD on 10/19/2023 3:24 AM Normal [facility] XR CHEST 1 VW XR CHEST 1 [...] Olson MD on 10/19/2023 3:11 AM Normal [facility] ARTERIAL BLOOD GASon 024 RONNIE'S TEST Pass Normal [facility] Comment on above: Performed By: #### C MP, 53557-4, 84916-8, 62310-8, 68693-0, 55241-3, 2157-6, 78389-5, PINR, CBCA, TSHR #### [facility] ([id number]) [address] [place] [address] Base excess Calc (Bld) [Moles/Vol] 9.0 mmol/L High 0.0-2.0 [facility] Comment on above: Performed By: #### C MP, 27789-0, 79464-0, 20655-5, 97048-2, 32920-6, 2157-6, 88275-5, PINR, CBCA, TSHR #### [facility] ([id number]) [address] [place] [address]3863 Body temperature 98.6 [degF] Normal 37.0 [facility] Comment on above: Performed By: #### C MP, 61982-0, 98938-6, 61494-1, 48233-0, 94149-3, 2157-6, 11774-6, PINR, CBCA, TSHR #### [facility] ([id number]) [address] [place] [address]409 HCO3 (Bld) [Moles/Vol] 29.3 mmol/L High 22-26 [facility] Comment on above: Performed By: #### C MP, 75954-2, 00113-7, 25017-7, 66225-3, 93354-6, 2157-6, 37331-2, PINR, CBCA, TSHR #### [facility] ([id number]) [address] [place] [address] 83073 Oxygen (Bld) [Partial pressure] 117 mm[Hg] High 80-100 [facility] Comment on above: Performed By: #### C MP, 04359-0, 90549-4, 69096-4, 50218-8, 69912-4, 2157-6, 69618-2, PINR, CBCA, TSHR #### [facility] ([id number]) [address] [place] [address] 31611 Oxygen saturation in Blood 99.0 % Normal >90 [facility] Comment on above: Performed By: #### C ROSALBA, 22615-1, 75783-6, 09780-1, 07582-1, 86987-4, 2157-6, 78428-1, PINR, CBCA, TSHR #### [facility] ([id number]) [address] [place] [address] 43767 OXYGEN SOURCE NC Normal [facility] Comment on above: Performed By: #### C MP, 72862-4, 44952-9, 23457-1, 48717-9, 05619-9, 2157-6, 00028-7, PINR, CBCA, TSHR #### [facility] ([id number]) [address] [place] [address] [place] [address] PCO2 26.8 MMHG Low 35-45 [facility] Comment on above: Performed By: #### C MP, 74335-1, 92016-7, 95101-5, 48946-8, 71877-1, 2157-6, 83405-7, PINR, CBCA, TSHR #### [facility] ([id number]) [address] [place] [address] 46769 pH (Bld) 7.646 [pH] Critically high 7.350-7.450 [facility] Comment on above: Performed By: #### C MP, 03420-0, 49559-4, 35739-9, 45851-4, 95525-7, 2157-6, 70987-0, PINR, CBCA, TSHR #### [facility] ([id number]) [address] [place] [address] 41418 SAMPLE SITE RBrach Normal [facility] Comment on above: Performed By: #### C MP, 64263-8, 54668-0, 21079-4, 41729-1, 37699-2, 2157-6, 33242-8, PINR, CBCA, TSHR #### [facility] ([id number]) [address] [place] [address] 84659 SAMPLE TYPE ARTERIAL [facility] Comment on above: Performed By: #### C MP, 38169-2, 88407-3, 50171-7, 52423-2, 39210-2, 2157-6, 59636-4, PINR, CBCA, TSHR #### [facility] ([id number]) [address] [place] [address] 25294 BASIC METABOLIC PANLon 10-18 Anion gap [Moles/Vol] 17 mmol/L High 5-15 [facility] Comment on above: Performed By: #### C MP, 58228-1, 29421-8, 09514-7, 75531-5, 88644-7, 2157-6, 23067-4, PINR, CBCA, TSHR #### [facility] ([id number]) [address] [place] [address] 88868 Calcium [Mass/Vol] 8.4 mg/dL Low 8.5-10.5 [facility] Comment on above: Performed By: #### C MP, 90995-1, 15566-2, 29694-2, 38952-4, 32044-5, 2157-6, 71224-5, PINR, CBCA, TSHR #### [facility] ([id number]) [address] [place] [address] 78389 Chloride [Moles/Vol] 95 mmol/L Low 98-109 [facility] Comment on above: Performed By: #### C MP, 97225-9, 73363-4, 79470-0, 37015-6, 67617-3, 2157-6, 44069-2, PINR, CBCA, TSHR #### [facility] ([id number]) [address] [place] [address] 41543 CO2 [Moles/Vol] 29 mmol/L Normal 22-32 [facility] Comment on above: Performed By: #### C MP, 84617-0, 16380-7, 00929-7, 94955-0, 34226-2, 2157-6, 21596-6, PINR, CBCA, TSHR #### [facility] ([id number]) [address] [place] [address] 91047 Creatinine [Mass/Vol] 2.38 mg/dL High 0.40-1.00 [facility] Comment on above: Result Comment: METH OD TRACEABLE TO IDMS STANDARD Performed By: #### C MP, 89937-3, 32354-5, 24867-6, 19950-2, 57190-9, 7-6, 34769-3, PINR, CBCA, TSHR #### [facility] ([id number]) [address] [place] [address] 69144 GFR/1.73 sq M.predicted among non-blacks MDRD (S/P/Bld) [Vol rate/Area] 22 mL/min/{1.73_m2} Low >59 [facility] Comment on above: Result Comment: Reported eGFR is based on the CKD-EPI 2020 equation that does not use a race coefficient. Performed By: #### C MP, 03852-6, 86116-5, 84172-2, 58351-5, 68555-8, 2157-6, 90511-4, PINR, CBCA, TSHR #### [facility] ([id number]) [address] [place] [address] 58676 Glucose [Mass/Vol] 238 mg/dL High 65-99 [facility] Comment on above: Performed By: #### C MP, 11286-3, 75975-6, 18071-2, 42347-7, 58655-2, 2157-6, 91368-9, PINR, CBCA, TSHR #### [facility] ([id number]) [address] [place] [address] [place] [address] Sodium [Moles/Vol] 141 mmol/L Normal 134-146 [facility] Comment on above: Performed By: #### C MP, 96270-2, 93967-5, 77372-6, 99578-0, 51435-2, 2157-6, 15369-3, PINR, CBCA, TSHR #### [facility] ([id number]) [address] [place] [address] [place] [address] Urea nitrogen [Mass/Vol] 139 mg/dL High 5-27 [facility] Comment on above: Performed By: #### C MP, 96389-4, 28310-5, 40353-7, 42940-3, 27644-4, 2157-6, 95292-0, PINR, CBCA, TSHR #### [facility] ([id number]) [address] [place] [address] 41163 Potassium [Moles/Vol] 2.6 mmol/L Critically low 3.5-5.0 [facility] Comment on above: Performed By: #### C MP, 07356-8, 35514-2, 98402-8, 85078-6, 96545-9, 2157-6, 13178-1, PINR, CBCA, TSHR #### [facility] ([id number]) [address] [place] [address] 56897 BLOOD CULTUREon 10-18-2023 Bacteria identified Aer cx Nom (Bld) SPECIMEN NOTES R WRIST CULTURE RESULTS NO GROWTH 5 DAYS Normal [facility] Comment on above: Performed By: #### C MP, 82852-8, 27050-2, 81512-8, 48010-9, 31616-0, 2157-6, 63363-6, PINR, CBCA, TSHR #### [facility] ([id number]) [address] [place] [address] 38783 Bacteria identified Aer cx Nom (Bld) SPECIMEN NOTES LAC CULTURE RESULTS NO GROWTH 5 DAYS Normal [facility] Comment on above: Performed By: #### C ROSALBA, 87433-7, 95475-1, 05484-1, 81934-9, 66118-0, 2157-6, 90050-5, PINR, CBCA, TSHR #### [facility] ([id number]) [address] [place] [address] 12960 CBC AND AUTO DIFFon 10-18-19 24 ABSOLUTE BASOPHIL 0.0 X10E9/L Normal 0.0-0.2 [facility] Comment on above: Performed By: #### C ROSALBA, 92375-9, 62653-9, 96521-5, 66163-8, 10188-8, 2157-6, 81850-7, PINR, CBCA, TSHR #### [facility] ([id number]) [address] [place] [address] 32440 ABSOLUTE NEUTROPHIL 5.5 X10E9/L Normal 1.5-6.6 [facility] Comment on above: Performed By: #### C ROSALBA, 61173-0, 78943-4, 88896-5, 62909-5, 71640-3, 2157-6, 25170-0, PINR, CBCA, TSHR #### [facility] ([id number]) [address] [place] [address] 48325 Basophils/100 WBC (Bld) 0.5 % Normal [facility] Comment on above: Performed By: #### C MP, 78717-8, 83187-5, 07120-5, 19772-5, 24377-4, 2157-6, 34455-9, PINR, CBCA, TSHR #### [facility] ([id number]) [address] [place] [address] 87055 Eosinophils (Bld) [#/Vol] 0.1 10*3/uL Normal 0.0-0.4 [facility] Comment on above: Performed By: #### C ROSALBA, 43068-2, 06020-4, 88738-6, 89907-2, 29679-7, 2157-6, 83242-4, PINR, CBCA, TSHR #### [facility] ([id number]) [address] [place] [address] 49844 Eosinophils/100 WBC (Bld) 1.3 % Normal [facility] Comment on above: Performed By: #### C MP, 35848-4, 51093-2, 69565-1, 23138-9, 93299-2, 2157-6, 61542-6, PINR, CBCA, TSHR #### [facility] ([id number]) [address] [place] [address] 12290 Erythrocyte distribution width (RBC) [Ratio] 17.4 % High 11.5-15.0 [facility] Comment on above: Performed By: #### C MP, 59877-7, 70759-6, 31170-5, 67368-8, 79421-9, 2157-6, 45772-2, PINR, CBCA, TSHR #### [facility] ([id number]) [address] [place] [address] 60267 Hematocrit (Bld) [Volume fraction] 32.1 % Low 35-47 [facility] Comment on above: Performed By: #### C MP, 87266-5, 59312-9, 06180-2, 06869-0, 97914-7, 2157-6, 76339-9, PINR, CBCA, TSHR #### [facility] ([id number]) [address] [place] [address] 73292 Hemoglobin (Bld) [Mass/Vol] 10.6 g/dL Low 11.7-15.5 [facility] Comment on above: Performed By: #### C MP, 20072-7, 68948-9, 30642-5, 63317-4, 93856-2, 2157-6, 06701-5, PINR, CBCA, TSHR #### [facility] ([id number]) [address] [place] [address] 75671 Lymphocytes (Bld) [#/Vol] 0.9 10*3/uL Low 1.0-3.5 [facility] Comment on above: Performed By: #### C MP, 34103-5, 10514-5, 80103-5, 68931-3, 46912-4, 2157-6, 37899-3, PINR, CBCA, TSHR #### [facility] ([id number]) [address] [place] [address] 06550 Lymphocytes/100 WBC (Bld) 12.1 % Normal [facility] Comment on above: Performed By: #### C MP, 39780-9, 85594-2, 49540-5, 17818-0, 06537-6, 2157-6, 69749-0, PINR, CBCA, TSHR #### [facility] ([id number]) [address] [place] [address] 31872 MCH (RBC) [Entitic mass] 30.7 pg Normal 27-34 [facility] Comment on above: Performed By: #### C MP, 72886-3, 54579-7, 73151-5, 55139-6, 90807-1, 2157-6, 20475-2, PINR, CBCA, TSHR #### [facility] ([id number]) [address] [place] [address] 68881 MCHC (RBC) [Mass/Vol] 33.1 g/dL Normal 32-36 [facility] Comment on above: Performed By: #### C MP, 21898-1, 02758-7, 12297-3, 31478-4, 63115-4, 2157-6, 36840-3, PINR, CBCA, TSHR #### [facility] ([id number]) [address] [place] [address] 59689 MCV (RBC) [Entitic vol] 93 fL Normal 80-100 [facility] Comment on above: Performed By: #### C ROSALBA, 78913-1, 17146-1, 56741-0, 19299-4, 26010-7, 2157-6, 36381-6, PINR, CBCA, TSHR #### [facility] ([id number]) [address] [place] [address] 56861 Monocytes (Bld) [#/Vol] 0.6 10*3/uL Normal 0-0.9 [facility] Comment on above: Performed By: #### C MP, 35062-9, 85738-1, 18149-5, 52857-8, 32758-5, 2157-6, 05672-0, PINR, CBCA, TSHR #### [facility] ([id number]) [address] [place] [address] 61431 Monocytes/100 WBC (Bld) 8.9 % Normal [facility] Comment on above: Performed By: #### [place] MP, 99606-6, 56634-9, 82601-4, 59244-8, 65036-2, 2157-6, 54776-0, PINR, CBCA, TSHR #### [facility] ([id number]) [address] [place] [address] 40414 Neutrophils/100 WBC (Bld) 77.2 % Normal [facility] Comment on above: Performed By: #### C ROSALBA, 25436-3, 67448-1, 18014-0, 80213-2, 98083-5, 2157-6, 24660-5, PINR, CBCA, TSHR #### [facility] ([id number]) [address] [place] [address] 18202 Platelet mean volume (Bld) [Entitic vol] 10.6 fL Normal 7-12 [facility] Comment on above: Performed By: #### C ROSALBA, 04402-1, 13733-3, 79348-8, 23313-6, 59766-5, 2157-6, 85360-5, PINR, CBCA, TSHR #### [facility] ([id number]) [address] [place] [address] 30294 Platelets (Bld) [#/Vol] 131 10*3/uL Low 150-450 [facility] Comment on above: Performed By: #### C ROSALBA, 96018-0, 24347-7, 06150-2, 07982-7, 23651-5, 2157-6, 22442-7, PINR, CBCA, TSHR #### [facility] ([id number]) [address] [place] [address] 33791 RBC COUNT 3.47 X10E12/L Low 3.80-5.20 [facility] Comment on above: Performed By: #### C MP, 64673-3, 64852-6, 61620-7, 04354-0, 87185-1, 2157-6, 83631-5, PINR, CBCA, TSHR #### [facility] ([id number]) [address] [place] [address] 74171 WBC (Bld) [#/Vol] 7.2 10*3/uL Normal 4.0-11.0 [facility] Comment on above: Performed By: #### C MP, 10113-5, 96169-8, 19597-9, 52327-8, 80230-3, 2157-6, 16126-9, PINR, CBCA, TSHR #### [facility] ([id number]) [address] [place] [address] 76484 COMPREHENSIVE METABOLIC PANE [place] 10-18-2023 Albumin [Mass/Vol] 3.0 g/dL Low 3.2-5.3 [facility] Comment on above: Performed By: #### C ROSALBA, 08763-9, 74147-4, 99153-0, 34942-0, 15601-4, 2157-6, 12017-4, PINR, CBCA, TSHR #### [facility] ([id number]) [address] [place] [address] 53112 ALP [Catalytic activity/Vol] 106 U/L Normal 39-130 [facility] Comment on above: Performed By: #### C ROSALBA, 65216-5, 13208-2, 87663-2, 73267-7, 37429-6, 2157-6, 03006-2, PINR, CBCA, TSHR #### [facility] ([id number]) [address] [place] [address] 69680 ALT [Catalytic activity/Vol] 18 U/L Normal 0-31 [facility] Comment on above: Performed By: #### C MP, 21332-0, 66907-0, 16569-1, 77085-8, 39839-4, 2157-6, 37128-4, PINR, CBCA, TSHR #### [facility] ([id number]) [address] [place] [address] 64438 AST [Catalytic activity/Vol] 24 U/L Normal 0-41 [facility] Comment on above: Performed By: #### C MP, 19648-5, 64554-0, 13577-9, 05547-4, 50234-0, 2157-6, 13385-0, PINR, CBCA, TSHR #### [facility] ([id number]) [address] [place] [address], [place] [address] Bilirubin [Mass/Vol] 1.7 mg/dL High 0.3-1.2 [facility] Comment on above: Performed By: #### C MP, 31087-4, 69576-8, 90820-0, 30254-1, 10643-1, 2157-6, 93656-9, PINR, CBCA, TSHR #### [facility] ([id number]) [address] [place] [address], [place] [address] Calcium [Mass/Vol] 8.1 mg/dL Low 8.5-10.5 [facility] Comment on above: Performed By: #### C MP, 70267-7, 16994-6, 78742-7, 05307-1, 18870-2, 2157-6, 73730-9, PINR, CBCA, TSHR #### [facility] ([id number]) [address] [place] [address], [place] [address] Chloride [Moles/Vol] 90 mmol/L Low 98-109 [facility] Comment on above: Performed By: #### C MP, 01584-7, 00625-3, 99335-9, 16300-3, 59497-2, 2157-6, 37055-8, PINR, CBCA, TSHR #### [facility] ([id number]) [address] [place] [address], [place] [address] CO2 [Moles/Vol] 32 mmol/L Normal 22-32 [facility] Comment on above: Performed By: #### C MP, 26876-4, 71795-2, 76383-0, 79356-7, 28574-4, 2157-6, 55016-7, PINR, CBCA, TSHR #### [facility] ([id number]) [address] [place] [address] 58775 Creatinine [Mass/Vol] 2.40 mg/dL High 0.40-1.00 [facility] Comment on above: Result Comment: METH OD TRACEABLE TO IDMS STANDARD Performed By: #### [place], 39681-1, 11957-7, 71384-7, 77438-9, 99731-0, 2157-6, 45002-2, PINR, CBCA, TSHR #### [facility] ([id number]) [address] [place] [address] 09248 Glucose [Mass/Vol] 279 mg/dL High 65-99 [facility] Comment on above: Performed By: #### [place], 52201-5, 23843-6, 29833-1, 33473-8, 14269-9, 2157-6, 48933-8, PINR, CBCA, TSHR #### [facility] ([id number]) [address] [place] [address] 47101 Protein [Mass/Vol] 7.6 g/dL Normal 6.0-8.0 [facility] Comment on above: Performed By: #### C MP, 12659-5, 64806-7, 48916-1, 63589-7, 42548-0, 2157-6, 57053-3, PINR, CBCA, TSHR #### [facility] ([id number]) [address] [place] [address] 20249 Sodium [Moles/Vol] 139 mmol/L Normal 134-146 [facility] Comment on above: Performed By: #### C MP, 23532-2, 08018-7, 02059-0, 51986-7, 69916-9, 2157-6, 87753-4, PINR, CBCA, TSHR #### [facility] ([id number]) [address] [place] [address] 83643 Urea nitrogen [Mass/Vol] 142 mg/dL High 5-27 [facility] Comment on above: Performed By: #### C ROSALBA, 92378-4, 28967-1, 28007-9, 50756-5, 93840-4, 2157-6, 21725-8, PINR, CBCA, TSHR #### [facility] ([id number]) [address] [place] [address] 42702 Potassium [Moles/Vol] 2.1 mmol/L Critically low 3.5-5.0 [facility] Comment on above: Performed By: #### C ROSALBA, 69073-2, 59706-4, 49011-8, 28801-2, 15751-2, 2157-6, 28048-9, PINR, CBCA, TSHR #### [facility] ([id number]) [address] [place] [address] 15701 Creatinine (U) [Mass/Vol]on 10-18-2023 URINE CREATININE,RDM 14.45 mg/dL Normal [facility] Comment on above: Performed By: #### C ROSALBA, 81913-8, 08855-2, 51576-1, 27793-7, 57805-8, 2157-6, 00758-9, PINR, CBCA, TSHR #### [facility] ([id number]) [address] [place] [address] 70749 Glucose Glucometer (BldC) [M ass/Vol]on 10-18-2023 Glucose [Mass/Vol] 142 mg/dL High 65-99 [facility] Glucose [Mass/Vol] 212 mg/dL High 65-99 [facility] Glucose [Mass/Vol] 311 mg/dL High 65-99 [facility] Lactate (P stan) [Moles/Vol]o n 10-18-2023 LACTATE W/REFLEX 1.8 mmol/L Normal 0.4-2.0 [facility] Comment on above: Result Comment: Result did not trigger repeat Lactate, re-order if needed. Performed By: #### C MP, 85910-9, 99084-9, 42771-2, 40845-3, 96637-2, 2157-6, 57085-5, PINR, CBCA, TSHR #### [facility] ([id number]) [address] [place] [address] 37937 MAGNESIUMon 10-18-2023 Magnesium [Mass/Vol] 2.2 mg/dL Normal 1.8-2.6 [facility] Comment on above: Performed By: #### C ROSALBA, 31659-0, 38741-8, 04171-3, 13009-7, 31786-0, 7-6, 33676-9, PINR, CBCA, TSHR #### [facility] ([id number]) [address] [place] [address] 46921 Magnesium [Mass/Vol] 1.8 mg/dL Normal 1.8-2.6 [facility] Comment on above: Performed By: #### C ROSALBA, 93497-8, 01042-6, 69139-0, 95166-6, 70085-4, 7-6, 18157-0, PINR, CBCA, TSHR #### [facility] ([id number]) [address] [place] [address] 68541 MICROALBUMIN - ALBUMIN:CREAT ININE URINE RATIOon 10-18-2023 ALB/CREAT RATIO 2103.3 mg/g creat High 0.0-30.0 [facility] Comment on above: Performed By: #### C ROSALBA, 21256-9, 78428-5, 25607-4, 48535-0, 74639-4, 2157-6, 35399-3, PINR, CBCA, TSHR #### [facility] ([id number]) [address] [place] [address] 19774 Albumin DL <= 20 mg/L (U) [Mass/Vol] 27.7 mg/dL High 0.0-1.9 [facility] Comment on above: Performed By: #### C MP, 80818-0, 48138-0, 14188-6, 24702-6, 92254-9, 2157-6, 87325-5, PINR, CBCA, TSHR #### [facility] ([id number]) [address] [place] [address] 91349 URINE CREAT 13.17 mg/dL Normal [facility] Comment on above: Performed By: #### C MP, 76342-8, 37645-7, 00417-4, 22568-0, 60217-3, 2157-6, 81723-2, PINR, CBCA, TSHR #### [facility] ([id number]) [address] [place] [address] 79435 POTASSIUMon 10-18-2023 Potassium [Moles/Vol] 2.7 mmol/L Critically low 3.5-5.0 [facility] Comment on above: Performed By: #### C MP, 16098-0, 90655-0, 24605-5, 88774-1, 03506-2, 2157-6, 96996-7, PINR, CBCA, TSHR #### [facility] ([id number]) [address] [place] [address] 20074 Procalcitonin IA [Mass/Vol]o n 10-18-2023 PROCALCITONIN 3.02 ng/mL High <0.05 [facility] Comment on above: Result Comment: NOTE <0.50 ng/mL - Low risk of severe sepsis and/or septic shock. <2.00 ng/mL - Recommend retesting within 6-24 hours. >2.00 ng/mL - High risk of sepsis and/or septic shock. Performed By: #### C MP, 53185-6, 46640-4, 48713-4, 20099-5, 95699-8, 2157-6, 00667-2, PINR, CBCA, TSHR #### [facility] ([id number]) [address] [place] [address] 10461 TROPONIN Ion 10-18-2023 Troponin I.cardiac [Mass/Vol] 0.08 ng/mL High 0.00-0.04 [facility] Comment on above: Result Comment: Concentrations greater than or equal to 0.05 ng/ml are considered elevated. Elevations of Troponin may be due to causes other than myocardial ischemia. Recommend serial Troponin testing be performed. Performed By: #### [place], 17849-2, 79846-5, 41043-3, 74823-8, 82591-8, 2157-6, 34885-7, PINR, CBCA, TSHR #### [facility] ([id number]) [address] [place] [address] 59873 Troponin I.cardiac [Mass/Vol] 0.11 ng/mL High 0.00-0.04 [facility] Comment on above: Result Comment: Concentrations greater than or equal to 0.05 ng/ml are considered elevated. Elevations of Troponin may be due to causes other than myocardial ischemia. Recommend serial Troponin testing be performed. Performed By: #### C MP, 68967-0, 85232-9, 63724-2, 80852-8, 45174-2, 2157-6, 38529-3, PINR, CBCA, TSHR #### [facility] ([id number]) [address] [place] [address] 44818 Troponin I.cardiac [Mass/Vol] 0.09 ng/mL High 0.00-0.04 [facility] Comment on above: Result Comment: Concentrations greater than or equal to 0.05 ng/ml are considered elevated. Elevations of Troponin may be due to causes other than myocardial ischemia. Recommend serial Troponin testing be performed. Performed By: #### C ROSALBA, 52594-4, 23828-1, 06478-8, 90854-1, 83408-1, 2157-6, 89191-2, PINR, CBCA, TSHR #### [facility] ([id number]) [address] [place] [address] 15357 URINE SODIUM,RANDOMon 2023 Sodium (U) [Moles/Vol] 94 mmol/L Normal [facility] Comment on above: Performed By: #### C ROSALBA, 37451-0, 60947-6, 47757-3, 71168-3, 73303-2, 2157-6, 63994-3, PINR, CBCA, TSHR #### [facility] ([id number]) [address] [place] [address] 74804 CBC AND AUTO DIFFon 10-17-19 24 ABSOLUTE BASOPHIL 0.0 X10E9/L Normal 0.0-0.2 [facility] Comment on above: Performed By: #### C ROSALBA, 30495-4, 90381-8, 65114-3, 23890-8, 13361-7, 2157-6, 32513-5, PINR, CBCA, TSHR #### [facility] ([id number]) [address] [place] [address] 06926 ABSOLUTE NEUTROPHIL 6.4 X10E9/L Normal 1.5-6.6 [facility] Comment on above: Performed By: #### C ROSALBA, 09187-5, 53008-2, 97954-5, 54400-8, 56974-2, 2157-6, 46987-8, PINR, CBCA, TSHR #### [facility] ([id number]) [address] [place] [address] 17887 Basophils/100 WBC (Bld) 0.4 % Normal [facility] Comment on above: Performed By: #### C MP, 30652-1, 93592-2, 20633-5, 02630-8, 03788-3, 2157-6, 21214-6, PINR, CBCA, TSHR #### [facility] ([id number]) [address] [place] [address] 43829 Eosinophils (Bld) [#/Vol] 0.1 10*3/uL Normal 0.0-0.4 [facility] Comment on above: Performed By: #### C MP, 25815-3, 42889-0, 29614-2, 30491-4, 92210-5, 2157-6, 94769-3, PINR, CBCA, TSHR #### [facility] ([id number]) [address] [place] [address] 09490 Eosinophils/100 WBC (Bld) 0.9 % Normal [facility] Comment on above: Performed By: #### C MP, 57353-4, 62643-6, 23819-9, 43857-2, 14870-3, 2157-6, 75151-0, PINR, CBCA, TSHR #### [facility] ([id number]) [address] [place] [address] 84503 Erythrocyte distribution width (RBC) [Ratio] 17.5 % High 11.5-15.0 [facility] Comment on above: Performed By: #### C MP, 97342-6, 34434-5, 58222-5, 16623-5, 78800-1, 2157-6, 42941-2, PINR, CBCA, TSHR #### [facility] ([id number]) [address] [place] [address] 65258 Hematocrit (Bld) [Volume fraction] 31.0 % Low 35-47 [facility] Comment on above: Performed By: #### C MP, 95288-1, 07557-3, 71694-6, 33410-1, 41881-8, 2157-6, 27389-6, PINR, CBCA, TSHR #### [facility] ([id number]) [address] [place] [address] 77272 Hemoglobin (Bld) [Mass/Vol] 10.3 g/dL Low 11.7-15.5 [facility] Comment on above: Performed By: #### C ROSALBA, 78496-1, 31634-3, 58405-2, 39015-8, 94064-1, 2157-6, 75774-9, PINR, CBCA, TSHR #### [facility] ([id number]) [address] [place] [address] 10450 Lymphocytes (Bld) [#/Vol] 0.9 10*3/uL Low 1.0-3.5 [facility] Comment on above: Performed By: #### C ROSALBA, 73652-5, 58447-0, 28586-8, 67754-5, 24615-4, 2157-6, 27710-3, PINR, CBCA, TSHR #### [facility] ([id number]) [address] [place] [address] 95584 Lymphocytes/100 WBC (Bld) 10.7 % Normal [facility] Comment on above: Performed By: #### C MP, 48451-7, 56052-6, 25403-4, 54961-7, 69691-3, 2157-6, 09979-6, PINR, CBCA, TSHR #### [facility] ([id number]) [address] [place] [address] 52270 MCH (RBC) [Entitic mass] 30.7 pg Normal 27-34 [facility] Comment on above: Performed By: #### C MP, 01066-8, 93792-7, 56332-7, 51441-4, 52300-0, 2157-6, 13469-9, PINR, CBCA, TSHR #### [facility] ([id number]) [address] [place] [address] 92925 MCHC (RBC) [Mass/Vol] 33.3 g/dL Normal 32-36 [facility] Comment on above: Performed By: #### C MP, 03499-9, 37068-6, 35097-2, 76723-4, 41833-2, 2157-6, 75999-1, PINR, CBCA, TSHR #### [facility] ([id number]) [address] [place] [address] 84105 MCV (RBC) [Entitic vol] 92 fL Normal 80-100 [facility] Comment on above: Performed By: #### C MP, 99805-6, 44501-1, 77116-8, 06345-3, 67911-7, 2157-6, 16089-3, PINR, CBCA, TSHR #### [facility] ([id number]) [address] [place] [address] 01838 Monocytes (Bld) [#/Vol] 0.7 10*3/uL Normal 0-0.9 [facility] Comment on above: Performed By: #### C MP, 65798-0, 49187-7, 93542-2, 16386-8, 69053-9, 2157-6, 61923-2, PINR, CBCA, TSHR #### [facility] ([id number]) [address] [place] [address] 56121 Monocytes/100 WBC (Bld) 8.7 % Normal [facility] Comment on above: Performed By: #### C MP, 02950-5, 08700-2, 53005-0, 37405-1, 18839-7, 2157-6, 75893-2, PINR, CBCA, TSHR #### [facility] ([id number]) [address] [place] [address] 96246 Neutrophils/100 WBC (Bld) 79.3 % Normal [facility] Comment on above: Performed By: #### C MP, 78076-6, 56852-1, 71704-0, 21979-1, 94446-1, 2157-6, 89724-5, PINR, CBCA, TSHR #### [facility] ([id number]) [address] [place] [address] 06716 Platelet mean volume (Bld) [Entitic vol] 10.4 fL Normal 7-12 [facility] Comment on above: Performed By: #### C MP, 66399-1, 84159-0, 60648-9, 87050-8, 24260-0, 2157-6, 46645-6, PINR, CBCA, TSHR #### [facility] ([id number]) [address] [place] [address] 98113 Platelets (Bld) [#/Vol] 144 10*3/uL Low 150-450 [facility] Comment on above: Performed By: #### C MP, 54066-6, 73636-0, 91542-5, 48865-2, 30414-6, 2157-6, 85967-1, PINR, CBCA, TSHR #### [facility] ([id number]) [address] [place] [address] 77724 RBC COUNT 3.37 X10E12/L Low 3.80-5.20 [facility] Comment on above: Performed By: #### C MP, 49660-7, 31718-6, 43726-0, 44053-3, 00703-5, 2157-6, 88697-3, PINR, CBCA, TSHR #### [facility] ([id number]) [address] [place] [address] 52732 WBC (Bld) [#/Vol] 8.1 10*3/uL Normal 4.0-11.0 [facility] Comment on above: Performed By: #### C MP, 91693-5, 83966-2, 64666-2, 95843-0, 86028-7, 2157-6, 72059-1, PINR, CBCA, TSHR #### [facility] ([id number]) [address] [place] [address] 01202 COMPREHENSIVE METABOLIC PANE [place]ver 10-17-2023 Albumin [Mass/Vol] 2.9 g/dL Low 3.2-5.3 [facility] Comment on above: Performed By: #### C MP, 10594-8, 22881-8, 66459-4, 75928-4, 41784-7, 2157-6, 52040-1, PINR, CBCA, TSHR #### [facility] ([id number]) [address] [place] [address] 79927 ALP [Catalytic activity/Vol] 115 U/L Normal 39-130 [facility] Comment on above: Performed By: #### C MP, 01445-8, 73878-7, 96310-0, 20932-7, 37262-8, 2157-6, 19466-6, PINR, CBCA, TSHR #### [facility] ([id number]) [address] [place] [address] 27949 ALT [Catalytic activity/Vol] 18 U/L Normal 0-31 [facility] Comment on above: Performed By: #### C MP, 82722-1, 07897-8, 73118-7, 70828-4, 00442-5, 2157-6, 53444-6, PINR, CBCA, TSHR #### [facility] ([id number]) [address] [place] [address] Anion gap [Moles/Vol] 17 mmol/L High 5-15 [facility] Comment on above: Performed By: #### C MP, 46620-9, 25370-1, 90496-2, 85532-0, 62020-4, 2157-6, 61833-0, PINR, CBCA, TSHR #### [facility] ([id number]) [address] [place] [address] [place] [address] AST [Catalytic activity/Vol] 29 U/L Normal 0-41 [facility] Comment on above: Performed By: #### C MP, 33574-3, 26683-0, 44757-9, 51873-8, 85660-0, 2157-6, 47389-1, PINR, CBCA, TSHR #### [facility] ([id number]) [address] [place] [address] 47083 Bilirubin [Mass/Vol] 1.5 mg/dL High 0.3-1.2 [facility] Comment on above: Performed By: #### C MP, 53472-2, 28361-9, 74687-0, 50160-2, 96894-5, 2157-6, 41887-1, PINR, CBCA, TSHR #### [facility] ([id number]) [address] [place] [address] 55964 Calcium [Mass/Vol] 8.0 mg/dL Low 8.5-10.5 [facility] Comment on above: Performed By: #### C MP, 58109-7, 03819-7, 56360-1, 41856-4, 16556-2, 2157-6, 76543-6, PINR, CBCA, TSHR #### [facility] ([id number]) [address] [place] [address] 61951 Chloride [Moles/Vol] 87 mmol/L Low 98-109 [facility] Comment on above: Performed By: #### C MP, 76334-4, 62876-7, 86334-1, 89311-1, 73954-0, 2157-6, 65421-4, PINR, CBCA, TSHR #### [facility] ([id number]) [address] [place] [address] 91258 CO2 [Moles/Vol] 30 mmol/L Normal 22-32 [facility] Comment on above: Performed By: #### C MP, 06969-7, 41520-6, 04337-6, 13826-7, 50521-5, 2157-6, 20449-1, PINR, CBCA, TSHR #### [facility] ([id number]) [address] [place] [address] 82873 Creatinine [Mass/Vol] 2.64 mg/dL High 0.40-1.00 [facility] Comment on above: Result Comment: METH OD TRACEABLE TO IDMS STANDARD Performed By: #### C MP, 15976-9, 05467-4, 47798-8, 27075-6, 88495-7, 2157-6, 23927-5, PINR, CBCA, TSHR #### [facility] ([id number]) [address] [place] [address] 76251 GFR/1.73 sq M.predicted among non-blacks MDRD (S/P/Bld) [Vol rate/Area] 19 mL/min/{1.73_m2} Low >59 [facility] Comment on above: Result Comment: Reported eGFR is based on the CKD-EPI 2020 equation that does not use a race coefficient. Performed By: #### C MP, 73893-0, 49487-6, 94607-1, 29676-1, 75056-8, 2157-6, 75795-3, PINR, CBCA, TSHR #### [facility] ([id number]) [address] [place] [address] 08925 Glucose [Mass/Vol] 381 mg/dL High 65-99 [facility] Comment on above: Performed By: #### C MP, 97094-2, 84180-9, 65165-7, 76964-0, 03845-4, 2157-6, 63789-8, PINR, CBCA, TSHR #### [facility] ([id number]) [address] [place] [address] 35784 Potassium [Moles/Vol] 2.1 mmol/L Critically low 3.5-5.0 [facility] Comment on above: Performed By: #### C MP, 51966-3, 90513-6, 23743-1, 95993-5, 23563-7, 2157-6, 92000-1, PINR, CBCA, TSHR #### [facility] ([id number]) [address] [place] [address] 73984 Protein [Mass/Vol] 7.6 g/dL Normal 6.0-8.0 [facility] Comment on above: Performed By: #### C MP, 80637-5, 78046-5, 76499-6, 66406-3, 91175-4, 2157-6, 43995-8, PINR, CBCA, TSHR #### [facility] ([id number]) [address] [place] [address] [place] [address] Sodium [Moles/Vol] 134 mmol/L Normal 134-146 [facility] Comment on above: Performed By: #### C MP, 83771-6, 71753-0, 74332-0, 64727-6, 05403-1, 2157-6, 27045-6, PINR, CBCA, TSHR #### [facility] ([id number]) [address] [place] [address], [place] [address] Urea nitrogen [Mass/Vol] 144 mg/dL High 5-27 [facility] Comment on above: Performed By: #### C MP, 94693-1, 85490-4, 87628-9, 73057-5, 90311-8, 2157-6, 35199-2, PINR, CBCA, TSHR #### [facility] ([id number]) [address] [place] [address], [place] [address] CT ABDOMEN AND PELVIS WO CON Ton [...] Gaviria MD on 10/17/2023 5:47 PM Normal [facility] CT BRAIN WO CONTon 4 CT BRAIN [...] Gaviria MD on 10/17/2023 5:29 PM Normal [facility] Creatinine (U) [Mass/Vol]on 10-17-2023 URINE CREATININE,RDM <10.00 Normal [facility] Comment on above: Performed By: #### C , 06914-2, 74082-9, 71421-0, 43789-6, 42985-5, 2157-6, 44218-4, PINR, CBCA, TSHR #### [facility] ([id number]) [address] [place] [address] 27644 Glucose Glucometer (BldC) [M ass/Vol]on 10-17-2023 Glucose [Mass/Vol] 399 mg/dL High 65-99 [facility] Lactate (P stan) [Moles/Vol]o n 10-17-2023 Lactate [Moles/Vol] 2.2 mmol/L High 0.4-2.0 [facility] Comment on above: Performed By: #### C ROSALBA, 58770-8, 12102-5, 97692-5, 01022-1, 25887-3, 2157-6, 75101-0, PINR, CBCA, TSHR #### [facility] ([id number]) [address] [place] [address] 09922 LACTATE W/REFLEX 2.5 mmol/L High 0.4-2.0 [facility] Comment on above: Performed By: #### C ROSALBA, 84545-3, 97463-7, 14426-6, 18126-8, 73146-8, 2157-6, 26310-3, PINR, CBCA, TSHR #### [facility] ([id number]) [address] [place] [address] 34601 MAGNESIUMon 10-17-2023 Magnesium [Mass/Vol] 1.8 mg/dL Normal 1.8-2.6 [facility] Comment on above: Performed By: #### C ROSALBA, 41136-0, 39779-5, 40755-6, 26215-3, 89390-3, 2157-6, 35266-3, PINR, CBCA, TSHR #### [facility] ([id number]) [address] [place] [address] 92231 MICROALBUMIN - ALBUMIN:CREAT ININE URINE RATIOon 10-17-2023 ALB/CREAT RATIO 5512.4 mg/g creat High 0.0-30.0 [facility] Comment on above: Performed By: #### C ROSALBA, 55834-9, 61441-6, 89959-6, 39586-2, 38217-6, 2157-6, 41197-9, PINR, CBCA, TSHR #### [facility] ([id number]) [address] [place] [address] 93103 Albumin DL <= 20 mg/L (U) [Mass/Vol] 15.6 mg/dL High 0.0-1.9 [facility] Comment on above: Performed By: #### C ROSALBA, 86110-9, 13496-8, 53291-7, 15642-5, 47404-4, 2157-6, 51256-8, PINR, CBCA, TSHR #### [facility] ([id number]) [address] [place] [address] 75652 URINE CREAT 2.83 mg/dL Normal [facility] Comment on above: Performed By: #### C ROSALBA, 97426-2, 37712-3, 04466-9, 75638-3, 40991-9, 2157-6, 97708-0, PINR, CBCA, TSHR #### [facility] ([id number]) [address] [place] [address] 31071 Natriuretic peptide B [Mass/ Vol]on 10-17-2023 Natriuretic peptide B (Bld) [Mass/Vol] 1110 pg/mL High <100.0 [facility] Comment on above: Performed By: #### C ROSALBA, 88874-6, 26102-6, 12285-5, 65665-6, 16133-5, 2157-6, 95921-1, PINR, CBCA, TSHR #### [facility] ([id number]) [address] [place] [address] 46893 PROTIME AND INRon 10-17-2023 INR Coag (PPP) [Relative time] 1.3 {INR} High 0.8-1.1 [facility] Comment on above: Performed By: #### C MP, 22399-2, 64983-0, 31527-9, 56492-2, 17290-5, 2157-6, 64982-5, PINR, CBCA, TSHR #### [facility] ([id number]) [address] [place] [address] PT Coag (PPP) [Time] 14.8 s High 9.8-13.2 [facility] Comment on above: Result Comment: NEW REFERENCE RANGE Performed By: #### C MP, 95607-7, 62679-3, 61168-9, 79173-7, 63306-4, 2157-6, 74357-7, PINR, CBCA, TSHR #### [facility] ([id number]) [address] [place] [address] SARS/FLU A+B/RSV by NAAT/Mol ecularon 10-17-2023 SARS/FLU [...] operators who are performing tests using either [employer] DX or [employer] systems and is limited to laboratories that [...] repeat. Fact Sheet for Healthcare Providers: https://www.fda.gov/media /745911/download Fact Sheet for Patients: https://www.fda.gov/media /339648/download Normal [facility] Comment on above: Performed By: #### C MP, 21841-7, 33673-6, 41566-3, 45112-9, 80194-9, 2157-6, 30273-4, PINR, CBCA, TSHR #### [facility] ([id number]) [address] [place] [address], [place] [address] TROPONIN Ion 10-17-2023 Troponin I.cardiac [Mass/Vol] 0.08 ng/mL High 0.00-0.04 [facility] Comment on above: Result Comment: Concentrations greater than or equal to 0.05 ng/ml are considered elevated. Elevations of Troponin may be due to causes other than myocardial ischemia. Recommend serial Troponin testing be performed. Performed By: #### C MP, 70945-8, 42272-2, 52432-0, 32053-3, 24703-6, 2157-6, 67066-2, PINR, CBCA, TSHR #### [facility] ([id number]) [address] [place] [address] 01344 Troponin I.cardiac [Mass/Vol] 0.09 ng/mL High 0.00-0.04 [facility] Comment on above: Result Comment: Concentrations greater than or equal to 0.05 ng/ml are considered elevated. Elevations of Troponin may be due to causes other than myocardial ischemia. Recommend serial Troponin testing be performed. Performed By: #### C ROSALBA, 29422-0, 82557-9, 87533-4, 70127-5, 83119-5, 2157-6, 33890-0, PINR, CBCA, TSHR #### [facility] ([id number]) [address] [place] [address] 54593 URINALYSISon 10-17-2023 Bilirubin Ql (U) Negative Normal [facility]G [facility] Comment on above: Performed By: #### C ROSALBA, 54649-2, 60849-5, 19694-8, 11858-4, 12706-5, 2157-6, 08543-6, PINR, CBCA, TSHR #### [facility] ([id number]) [address] [place] [address] 04560 BLOOD/HGB SMALL Abnormal NEG [facility] Comment on above: Performed By: #### C ROSALBA, 29312-1, 98734-5, 35440-3, 73870-1, 00652-6, 2157-6, 57191-5, PINR, CBCA, TSHR #### [facility] ([id number]) [address] [place] [address] 08746 Color (U) YELLOW Normal YELLOW [facility] Comment on above: Performed By: #### C MP, 87682-4, 78628-2, 21731-5, 56975-0, 49413-1, 2157-6, 06598-2, PINR, CBCA, TSHR #### [facility] ([id number]) [address] [place] [address] 54280 Glucose Ql (U) Negative Normal NEG [facility] Comment on above: Performed By: #### C MP, 69780-1, 95773-5, 29005-6, 97881-9, 58960-4, 2157-6, 64144-0, PINR, CBCA, TSHR #### [facility] ([id number]) [address] [place] [address] 66073 Ketones Ql (U) Negative Normal NEG [facility] Comment on above: Performed By: #### C MP, 88374-9, 45953-4, 96736-3, 62703-3, 21226-4, 2157-6, 04688-9, PINR, CBCA, TSHR #### [facility] ([id number]) [address] [place] [address] 28196 Leukocyte esterase Test strip Ql (U) SMALL Abnormal [facility] Comment on above: Performed By: #### C MP, 96366-8, 67536-7, 67763-8, 80070-7, 51352-4, 2157-6, 97304-0, PINR, CBCA, TSHR #### [facility] ([id number]) [address] [place] [address] [place] [address] Nitrite Ql (U) Positive Abnormal NEG [facility] Comment on above: Performed By: #### C MP, 57457-9, 99533-4, 98401-2, 91050-7, 01074-0, 2157-6, 99839-4, PINR, CBCA, TSHR #### [facility] ([id number]) [address] [place] [address] [place] [address] pH (U) 8.0 [pH] Normal 5.0-8.5 [facility] Comment on above: Performed By: #### C MP, 50142-1, 22031-6, 38778-6, 12553-5, 68530-6, 2157-6, 40361-0, PINR, CBCA, TSHR #### [facility] ([id number]) [address] [place] [address] 45085 Protein Ql (U) 30 mg/dL Abnormal [facility]G [facility] [facility] Comment on above: Performed By: #### C MP, 71784-4, 48672-3, 24282-9, 77230-3, 33704-1, 2157-6, 65755-2, PINR, CBCA, TSHR #### [facility] ([id number]) [address] [place] [address] 20317 R.B.CELLS 0 to 1 Normal 0-5 [facility] Comment on above: Performed By: #### [place], 37201-9, 71792-3, 66197-3, 58627-0, 31305-5, 2157-6, 94584-9, PINR, CBCA, TSHR #### [facility] ([id number]) [address] [place] [address] 50316 Specific gravity (U) [Rel density] 1.010 Normal 1.003-1.035 [facility] Comment on above: Performed By: #### C MP, 99216-3, 96630-9, 93098-5, 37415-4, 24174-0, 2157-6, 58869-9, PINR, CBCA, TSHR #### [facility] ([id number]) [address] [place] [address] 87570 SQUAMOUS EPITHELIUM 1 to 3 Normal 0-5 [facility] Comment on above: Performed By: #### C MP, 12976-4, 59157-6, 71011-4, 54702-5, 63174-5, 2157-6, 48228-4, PINR, CBCA, TSHR #### [facility] ([id number]) [address] [place] [address] 46556 TURBIDITY HAZY Abnormal CLEAR [facility] Comment on above: Performed By: #### C MP, 09992-6, 15467-0, 09208-3, 13569-8, 48152-0, 2157-6, 30184-6, PINR, CBCA, TSHR #### [facility] ([id number]) [address] [place] [address] 92650 Urobilinogen Qn (U) 0.2 {Aden'U}/dL Normal <1.1 [facility] Comment on above: Performed By: #### C MP, 05767-3, 93985-6, 02697-7, 61900-2, 57907-2, 2157-6, 33193-8, PINR, CBCA, TSHR #### [facility] ([id number]) [address] [place] [address] 79679 W.B.CELLS 20 to 25 Normal 0-5 [facility] Comment on above: Performed By: #### C MP, 87416-7, 02121-3, 29644-7, 93085-6, 18161-5, 2157-6, 14404-0, PINR, CBCA, TSHR #### [facility] ([id number]) [address] [place] [address] 41262 URINE CULTUREon 10-17-2023 Bacteria identified Cx Nom [...] F TOBRAMYCIN S <=1 F TRIMETH/SULFAMETHOXAZOLE S <=10/18 F Susceptible [facility] Comment on above: Performed By: #### C ROSALBA, 54837-3, 87411-6, 53937-5, 12080-3, 16745-7, 2157-6, 02648-3, PINR, CBCA, TSHR #### [facility] ([id number]) [address] [place] [address] 70938 URINE SODIUM,RANDOMon 2023 Sodium (U) [Moles/Vol] 95 mmol/L Normal [facility] Comment on above: Performed By: #### C ROSALBA, 84227-2, 97429-8, 32528-2, 70670-5, 61262-4, 2157-6, 20925-4, PINR, CBCA, TSHR #### [facility] ([id number]) [address] [place] [address] 47476 URN MACROSCOPIC NURon 2023 BILIRUBIN KALINA Negative Normal NEG [facility] Comment on above: Performed By: #### C ROSALBA, 32464-9, 23534-3, 68756-5, 35319-4, 95956-6, 2157-6, 23576-1, PINR, CBCA, TSHR #### [facility] ([id number]) [address] [place] [address] 69359 BLOOD/HGB KALINA Small Abnormal NEG [facility] Comment on above: Performed By: #### C MP, 12545-2, 45165-5, 89923-6, 81655-4, 81180-4, 2157-6, 59246-5, PINR, CBCA, TSHR #### [facility] ([id number]) [address] [place] [address] 82304 GLUCOSE KALINA Negative Normal NEG [facility] Comment on above: Performed By: #### C MP, 05687-5, 14690-8, 19764-0, 03200-1, 72712-2, 2157-6, 16853-3, PINR, CBCA, TSHR #### [facility] ([id number]) [address] [place] [address] 29212 KETONES KALINA Negative Normal NEG [facility] Comment on above: Performed By: #### C MP, 23262-4, 67164-5, 49772-8, 09837-4, 64751-0, 2157-6, 77578-3, PINR, CBCA, TSHR #### [facility] ([id number]) [address] [place] [address] [place] [address] LEUKOCYTE ESTERASE KAILNA Small Abnormal NEG [facility] Comment on above: Performed By: #### C MP, 58137-5, 13454-9, 31213-2, 68265-4, 66894-9, 2157-6, 75903-3, PINR, CBCA, TSHR #### [facility] ([id number]) [address] [place] [address] 52535 NITRITE KALINA Positive Abnormal NEG [facility] Comment on above: Performed By: #### C MP, 34074-5, 16569-8, 94305-8, 88230-9, 54168-9, 2157-6, 25746-4, PINR, CBCA, TSHR #### [facility] ([id number]) [address] [place] [address] 56414 PH KALINA 8.0 Normal 5.0-8.5 [facility] Comment on above: Performed By: #### C MP, 08800-7, 37355-5, 79654-3, 05295-4, 88250-3, 2157-6, 71063-8, PINR, CBCA, TSHR #### [facility] ([id number]) [address] [place] [address] 66416 PROTEIN KALINA 30 mg/dL Abnormal NEG [facility] Comment on above: Performed By: #### C MP, 29887-8, 53261-0, 77089-6, 85702-5, 11264-5, 2157-6, 01919-1, PINR, CBCA, TSHR #### [facility] ([id number]) [address] [place] [address] 49877 SPECIFIC GRAVITY KALINA 1.020 Normal 1.003-1.035 [facility] Comment on above: Performed By: #### C MP, 42323-2, 82439-6, 61154-4, 77536-8, 31616-1, 2157-6, 85912-2, PINR, CBCA, TSHR #### [facility] ([id number]) [address] [place] [address] 37490 UROBILINOGEN KALINA 0.2 eu/dL Normal <1.1 [facility] Comment on above: Performed By: #### C MP, 83336-6, 19041-2, 31851-3, 43504-7, 65826-1, 2157-6, 02934-1, PINR, CBCA, TSHR #### [facility] ([id number]) [address] [place] [address] 51926 aPTT Coag (PPP) [Time]on aPTT Coag (Bld) [Time] 23 s Low 26-37 [facility] Comment on above: Result Comment: NEW REFERENCE RANGE Performed By: #### C MP, 78082-5, 81314-7, 04190-2, 60192-9, 17916-9, 2157-6, 75529-1, PINR, CBCA, TSHR #### [facility] ([id number]) [address] [facility] [place] [address] Basic Metabolic Panelon Anion gap [Moles/Vol] 16 mmol/L High 5 - 15 mmol/L [facility] Calcium [Mass/Vol] 9.0 mg/dL 8.5 - 10. 5 mg/dL [facility] Chloride [Moles/Vol] 91 mmol/L Low 98 - 109 mmol/L [facility] CO2 [Moles/Vol] 41 mmol/L High 22 - 32 mmol/L [facility] Creatinine [Mass/Vol] 2.31 mg/dL High 0.40 - 1.00 mg/dL [facility] eGFR (CKD-EPI)non-race dependent 23 Low - PINF [facility] Glucose [Mass/Vol] 135 mg/dL High 65 - 99 mg/dL [facility] Interpretation and review of laboratory results Abnormal [facility] Potassium [Moles/Vol] 3.3 mmol/L Low 3.5 - 5.0 mmol/L [facility] Sodium [Moles/Vol] 148 mmol/L High 134 - 146 mmol/L [facility] Urea nitrogen [Mass/Vol] 73 mg/dL High 5 - 27 mg/dL [facility] Blood gas, venouson 10-05-19 24 Arterial patency Wrist artery --pre arterial puncture [facility] Base excess Calc (Bld) [Moles/Vol] 17.0 mmol/L High [facility] CO2 (BldV) [Partial pressure] 54.2 mm[Hg] High [facility] HCO3 (Bld) [Moles/Vol] 43.4 mmol/L High [facility] Interpretation and review of laboratory results Abnormal [facility] Oxygen (BldV) [Partial pressure] 25 mm[Hg] Low [facility] Oxygen therapy source and amount [CARE] RoomAir [facility] Oxygen/Inspired gas setting [Volume Fraction] Ventilator 21 % [facility] pH (BldV) 7.511 [pH] High 7.320 - 7.420 [facility] SaO2% Calculated from oxygen partial pressure (BldV) [Mass fraction] 51.0 % Low 80.0 - PINF % [facility] Specimen site Narrative N/A [facility] Specimen type Nom (Spec) VENOUS [facility] CBC auto differentialon Basophils (Bld) [#/Vol] 0.0 [...] 9.9 g/dL Low 11.7 - 15.5 g/dL [facility] Interpretation and review of laboratory results Abnormal [facility] Lymphocytes (Bld) [#/Vol] 0.9 10*3/uL Low [facility] Lymphocytes/100 WBC (Bld) 15.9 % [facility] MCH (RBC) [Entitic mass] 30.7 pg 27 - 34 pg [facility] MCHC (RBC) [Mass/Vol] 31.7 g/dL Low 32 - 36 g/dL [facility] MCV (RBC) [Entitic vol] 97 fL 80 - 100 fL [facility] Monocytes (Bld) [#/Vol] 0.8 10*3/uL [facility] Monocytes/100 WBC (Bld) 14.0 % [facility] Neutrophils (Bld) [#/Vol] 3.7 10*3/uL [facility] Neutrophils/100 WBC (Bld) 67.9 % [facility] Platelet mean volume (Bld) [Entitic vol] 9.3 fL 7 - 12 fL [facility] Platelets (Bld) [#/Vol] 150 10*3/uL [facility] RBC (Bld) [#/Vol] 3.22 10*6/uL Low [facility] WBC corrected for nucl RBC Auto (Bld) [#/Vol] 5.4 [facility] Glucose Glucometer (BldC) [M ass/Vol]on 10-05-2023 Glucose [Mass/Vol] 150 mg/dL High 65 - 99 mg/dL [facility] Interpretation and review of laboratory results Abnormal [facility] Glucose [Mass/Vol] 146 mg/dL High 65 - 99 mg/dL [facility] Interpretation and review of laboratory results Abnormal [facility] Magnesiumon 10-05-2023 Magnesium [Mass/Vol] 2.0 mg/dL 1.8 - 2.6 mg/dL [facility] No Panel Informationon 10-05 [facility] Protime & INRon 10-05-2023 INR Coag (PPP) [Relative time] 1.6 {INR} High [facility] Interpretation and review of laboratory results Abnormal [facility] PT Coag (PPP) [Time] 18.2 s High [facility] XR Chest Single viewon 10-05 SECTRAPACS [facility] Radiology Study observation (narrative) [facility] [...] 3.5 mmol/L 3.5 - 5.0 mmol/L [facility] Sodium [Moles/Vol] 145 mmol/L 134 - 146 mmol/L [facility] Urea nitrogen [Mass/Vol] 73 mg/dL High 5 - 27 mg/dL [facility] CBC auto differentialon Basophils (Bld) [#/Vol] 0.1 10*3/uL [facility] Basophils/100 WBC (Bld) 1.0 % [facility] Eosinophils (Bld) [#/Vol] 0.1 10*3/uL [facility] Eosinophils/100 WBC (Bld) 2.1 % [facility] Erythrocyte distribution width (RBC) [Ratio] 20.4 % High 11.5 - 15.0 % [facility] Hematocrit (Bld) [Volume fraction] 28.9 % Low 35 - 47 % [facility] Hemoglobin (Bld) [Mass/Vol] 9.5 g/dL Low 11.7 - 15.5 g/dL [facility] Interpretation and review of laboratory results Abnormal [facility] Lymphocytes (Bld) [#/Vol] 0.7 10*3/uL Low [facility] Lymphocytes/100 WBC (Bld) 12.7 % [facility] MCH (RBC) [Entitic mass] 31.3 pg 27 - 34 pg [facility] MCHC (RBC) [Mass/Vol] 33.0 g/dL 32 - 36 g/dL [facility] MCV (RBC) [Entitic vol] 95 fL 80 - 100 fL [facility] Monocytes (Bld) [#/Vol] 0.6 10*3/uL [facility] Monocytes/100 WBC (Bld) 10.7 % [facility] Neutrophils (Bld) [#/Vol] 4.3 10*3/uL [facility] Neutrophils/100 WBC (Bld) 73.5 % [facility] Platelet mean volume (Bld) [Entitic vol] 9.4 fL 7 - 12 fL [facility] Platelets (Bld) [#/Vol] 155 10*3/uL [facility] RBC (Bld) [#/Vol] 3.05 10*6/uL Low [facility] WBC corrected for nucl RBC Auto (Bld) [#/Vol] 5.9 [facility] Glucose Glucometer (BldC) [M ass/Vol]on 10-04-2023 Glucose [Mass/Vol] 155 mg/dL High 65 - 99 mg/dL [facility] Interpretation and review of laboratory results Abnormal [facility] Glucose [Mass/Vol] 119 mg/dL High 65 - 99 mg/dL [facility] Interpretation and review of laboratory results Abnormal [facility] Glucose [Mass/Vol] 127 mg/dL High 65 - 99 mg/dL [facility] Interpretation and review of laboratory results Abnormal [facility] Glucose [Mass/Vol] 108 mg/dL High 65 - 99 mg/dL [facility] Interpretation and review of laboratory results Abnormal [facility] Magnesiumon 10-04-2023 Magnesium [Mass/Vol] 1.9 mg/dL 1.8 - 2.6 mg/dL [facility] No Panel Informationon 10-04 [facility] Protime & INRon 10-04-2023 INR Coag (PPP) [Relative time] 1.6 {INR} High [facility] Interpretation and review of laboratory results Abnormal [facility] PT Coag (PPP) [Time] 18.7 s High [facility] Basic Metabolic Panelon Anion gap [Moles/Vol] 12 mmol/L 5 - 15 mmol/L [facility] Calcium [Mass/Vol] 8.2 mg/dL Low 8.5 - 10. 5 mg/dL [facility] Chloride [Moles/Vol] 91 mmol/L Low 98 - 109 mmol/L [facility] CO2 [Moles/Vol] 37 mmol/L High 22 - 32 mmol/L [facility] Creatinine [Mass/Vol] 2.40 mg/dL High 0.40 - 1.00 mg/dL [facility] eGFR (CKD-EPI)non-race dependent 22 Low - PINF [facility] Glucose [Mass/Vol] 120 mg/dL High 65 - 99 mg/dL [facility] Interpretation and review of laboratory results Abnormal [facility] Potassium [Moles/Vol] 3.2 mmol/L Low 3.5 - 5.0 mmol/L [facility] Sodium [Moles/Vol] 140 mmol/L 134 - 146 mmol/L [facility] Urea nitrogen [Mass/Vol] 78 mg/dL High 5 - 27 mg/dL [facility] Glucose Glucometer (BldC) [M ass/Vol]on 10-03-2023 Glucose [Mass/Vol] 113 mg/dL High 65 - 99 mg/dL [facility] Interpretation and review of laboratory results Abnormal [facility] Glucose [Mass/Vol] 119 mg/dL High 65 - 99 mg/dL [facility] Interpretation and review of laboratory results Abnormal [facility] Glucose [Mass/Vol] 138 mg/dL High 65 - 99 mg/dL [facility] Interpretation and review of laboratory results Abnormal [facility] Glucose [Mass/Vol] 129 mg/dL High 65 - 99 mg/dL [facility] Interpretation and review of laboratory results Abnormal [facility] Hemoglobinon 10-03-2023 Hemoglobin (Bld) [Mass/Vol] 8.0 g/dL Low 11.7 - 15.5 g/dL [facility] No Panel Informationon 10-03 Interpretation and review of laboratory results Abnormal [facility] Platelet counton 10-03-2023 Platelet mean volume (Bld) [Entitic vol] 9.8 fL 7 - 12 fL [facility] Platelets (Bld) [#/Vol] 131 10*3/uL Low [facility] Potassiumon 10-03-2023 Potassium [Moles/Vol] 3.4 mmol/L Low 3.5 - 5.0 mmol/L [facility] Potassium [Moles/Vol]on Interpretation and review of laboratory results Abnormal [facility] Protime & INRon 10-03-2023 INR Coag (PPP) [Relative time] 1.8 {INR} High [facility] Interpretation and review of laboratory results Abnormal [facility] PT Coag (PPP) [Time] 20.2 s High [facility] Anti XA unfractionated hepar inon 10-02-2023 Heparin [...] (Unsp spec) [Interp] NO GROWTH 5 DAYS [facility] CBC auto differentialon Basophils (Bld) [#/Vol] 0.1 10*3/uL [facility] Basophils/100 WBC (Bld) 0.8 % [facility] Eosinophils (Bld) [#/Vol] 0.1 10*3/uL [facility] Eosinophils/100 WBC (Bld) 1.9 % [facility] Monocytes (Bld) [#/Vol] 0.6 10*3/uL [facility] Monocytes/100 WBC (Bld) 8.5 % [facility] Neutrophils (Bld) [#/Vol] 5.4 10*3/uL [facility] Neutrophils/100 WBC (Bld) 77.8 % [facility] Platelet mean volume (Bld) [Entitic vol] 9.8 fL 7 - 12 fL [facility] Platelets (Bld) [#/Vol] 132 10*3/uL Low [facility] RBC (Bld) [#/Vol] 2.60 10*6/uL Low [facility] WBC corrected for nucl RBC Auto (Bld) [#/Vol] 6.9 [facility] Comprehensive metabolic pane elver 10-02-2023 Albumin [Mass/Vol] 3.5 g/dL 3.2 - 5.3 g/dL [facility] ALP [Catalytic activity/Vol] 80 U/L 39 - 130 U/L [facility] ALT No additional P-5'-P [Catalytic activity/Vol] 9 U/L 0 - 31 U/L [facility] Anion gap [Moles/Vol] 14 mmol/L 5 - 15 mmol/L [facility] AST [Catalytic activity/Vol] 16 U/L 0 - 41 U/L [facility] Bilirubin [Mass/Vol] 1.2 mg/dL 0.3 - 1.2 mg/dL [facility] Calcium [Mass/Vol] 8.2 mg/dL Low 8.5 - 10. 5 mg/dL [facility] Chloride [Moles/Vol] 93 mmol/L Low 98 - 109 mmol/L [facility] CO2 [Moles/Vol] 34 mmol/L High 22 - 32 mmol/L [facility] Creatinine [Mass/Vol] 2.42 mg/dL High 0.40 - [...] 8.0 g/dL [facility] Sodium [Moles/Vol] 141 mmol/L 134 - 146 mmol/L [facility] Urea nitrogen [Mass/Vol] 77 mg/dL High 5 - 27 mg/dL [facility] Digoxin [Mass/Vol]on Interpretation and review of laboratory results Abnormal [facility] Digoxin levelon 10-02-2023 Digoxin [Mass/Vol] 0.7 ng/mL Low 0.8 - 2.0 ng/mL [facility] Glucose Glucometer (BldC) [M ass/Vol]on 10-02-2023 Glucose [Mass/Vol] 143 mg/dL High 65 - 99 mg/dL [facility] Interpretation and review of laboratory results Abnormal [facility] Glucose [Mass/Vol] 171 mg/dL High 65 - 99 mg/dL [facility] Interpretation and review of laboratory results Abnormal [facility] Glucose [Mass/Vol] 207 mg/dL High 65 - 99 mg/dL [facility] Interpretation and review of laboratory results Abnormal [facility] Glucose [Mass/Vol] 177 mg/dL High 65 - 99 mg/dL [facility] Interpretation and review of laboratory results Abnormal [facility] Heparin unfractionated Chrom ogenic method Qn (PPP)on 10-02-2023 [facility] Magnesiumon 10-02-2023 Magnesium [Mass/Vol] 2.2 mg/dL 1.8 - 2.6 mg/dL [facility] No Panel Informationon 10-02 [facility] Phosphoruson 10-02-2023 Phosphate [Mass/Vol] 2.8 mg/dL 2.4 - 4.9 mg/dL [facility] Protime & INRon 10-02-2023 INR Coag (PPP) [Relative time] 1.8 {INR} High [facility] Interpretation and review of laboratory results Abnormal [facility] PT Coag (PPP) [Time] 21.0 s High [facility] APTTon 10-01-2023 aPTT Coag (PPP) [Time] 28 s [facility] CBC auto differentialon Basophils (Bld) [#/Vol] 0.0 10*3/uL [facility] Basophils/100 WBC (Bld) 0.6 % [facility] Eosinophils (Bld) [#/Vol] 0.2 10*3/uL [facility] Eosinophils/100 WBC (Bld) 2.0 % [facility] Erythrocyte distribution width (RBC) [Ratio] 21.1 % High 11.5 - 15.0 % [facility] Hematocrit (Bld) [Volume fraction] 24.0 % Low 35 - 47 % [facility] Hemoglobin (Bld) [Mass/Vol] 8.0 g/dL Low 11.7 - 15.5 g/dL [facility] Interpretation and review of laboratory results Abnormal [facility] Lymphocytes (Bld) [#/Vol] 1.0 10*3/uL [facility] Lymphocytes/100 WBC (Bld) 11.8 % [facility] MCH (RBC) [Entitic mass] 31.4 pg 27 - 34 pg [facility] MCHC (RBC) [Mass/Vol] 33.1 g/dL 32 - 36 g/dL [facility] MCV (RBC) [Entitic vol] 95 fL 80 - 100 fL [facility] Monocytes (Bld) [#/Vol] 0.8 10*3/uL [facility] Monocytes/100 WBC (Bld) 9.2 % [facility] Neutrophils (Bld) [#/Vol] 6.4 10*3/uL [facility] Neutrophils/100 WBC (Bld) 76.4 % [facility] Platelet mean volume (Bld) [Entitic vol] 9.6 fL 7 - 12 fL [facility] Platelets (Bld) [#/Vol] 135 10*3/uL Low [facility] RBC (Bld) [#/Vol] 2.53 10*6/uL Low [facility] dica [facility] WBC corrected for nucl RBC Auto (Bld) [#/Vol] 8.4 [facility] Comprehensive metabolic pane elver 10-01-2023 Albumin [Mass/Vol] [...] eGFR (CKD-EPI)non-race dependent 20 Low - PINF [facility] Glucose [Mass/Vol] 142 mg/dL High 65 - 99 mg/dL [facility] Interpretation and review of laboratory results Abnormal [facility] Potassium [Moles/Vol] 3.9 mmol/L 3.5 - 5.0 mmol/L [facility] Protein [Mass/Vol] 6.5 g/dL 6.0 - 8.0 g/dL [facility] Sodium [Moles/Vol] 143 mmol/L 134 - 146 mmol/L [facility] Urea nitrogen [Mass/Vol] 77 mg/dL High 5 - 27 mg/dL [facility] Glucose Glucometer (BldC) [M ass/Vol]on 10-01-2023 Glucose [Mass/Vol] 191 mg/dL High 65 - 99 mg/dL [facility] Interpretation and review of laboratory results Abnormal [facility] Glucose [Mass/Vol] 183 mg/dL High 65 - 99 mg/dL [facility] Interpretation and review of laboratory results Abnormal [facility] Glucose [Mass/Vol] 176 mg/dL High 65 - 99 mg/dL [facility] Interpretation and review of laboratory results Abnormal [facility] Glucose [Mass/Vol] 146 mg/dL High 65 - 99 mg/dL [facility] Interpretation and review of laboratory results Abnormal [facility] Magnesiumon 10-01-2023 Magnesium [Mass/Vol] 2.5 mg/dL 1.8 - 2.6 mg/dL [facility] No Panel Informationon 10-01 [facility] Phosphoruson 10-01-2023 Phosphate [Mass/Vol] 2.9 mg/dL 2.4 - 4.9 mg/dL [facility] Platelet counton 10-01-2023 Interpretation and review of laboratory results Abnormal [facility] Platelet mean volume (Bld) [Entitic vol] 9.8 fL 7 - 12 fL [facility] Platelets (Bld) [#/Vol] 139 10*3/uL Low [facility] Protime & INRon 10-01-2023 INR Coag (PPP) [Relative time] 1.7 {INR} High [facility] Interpretation and review of laboratory results Abnormal [facility] PT Coag (PPP) [Time] 19.4 s High [facility] INR Coag (PPP) [Relative time] 1.6 {INR} High [facility] Interpretation and review of laboratory results Abnormal [facility] PT Coag (PPP) [Time] 18.3 s High [facility] CBC auto differentialon Basophils (Bld) [#/Vol] 0.0 10*3/uL [facility] Basophils/100 WBC (Bld) 0.3 % [facility] Eosinophils (Bld) [#/Vol] 0.2 10*3/uL [facility] Eosinophils/100 WBC (Bld) 1.7 % [facility] Erythrocyte distribution width (RBC) [Ratio] 20.2 % High 11.5 - 15.0 % [facility] Hematocrit (Bld) [Volume fraction] 22.3 % Low 35 - 47 % [facility] Hemoglobin (Bld) [Mass/Vol] 7.4 g/dL Low 11.7 - 15.5 g/dL [facility] Interpretation and review of laboratory results Abnormal [facility] Lymphocytes (Bld) [#/Vol] 0.8 10*3/uL Low [facility] Lymphocytes/100 WBC (Bld) 7.9 % [facility] MCH (RBC) [Entitic mass] 31.6 pg 27 - 34 pg [facility] MCHC (RBC) [Mass/Vol] 33.2 g/dL 32 - 36 g/dL [facility] MCV (RBC) [Entitic vol] 95 fL 80 - 100 fL [facility] Monocytes (Bld) [#/Vol] 0.8 10*3/uL [facility] Monocytes/100 WBC (Bld) 8.7 % [facility] Neutrophils (Bld) [#/Vol] 7.8 10*3/uL High [facility] Neutrophils/100 WBC (Bld) 81.4 % [facility] Platelet mean volume (Bld) [Entitic vol] 9.7 fL 7 - 12 fL [facility] Platelets (Bld) [#/Vol] 124 10*3/uL Low [facility] RBC (Bld) [#/Vol] 2.35 10*6/uL Low [facility] WBC corrected for nucl RBC Auto (Bld) [#/Vol] 9.5 [facility] Comprehensive metabolic pane elver 09-30-2023 Albumin [Mass/Vol] [...] activity/Vol] 15 U/L 0 - 41 U/L [facility] Bilirubin [Mass/Vol] 0.7 mg/dL 0.3 - 1.2 mg/dL [facility] Calcium [Mass/Vol] 8.2 mg/dL Low 8.5 - 10. 5 mg/dL [facility] Chloride [Moles/Vol] 101 mmol/L 98 - 109 mmol/L [facility] CO2 [Moles/Vol] 34 mmol/L High 22 - 32 mmol/L [facility] Creatinine [Mass/Vol] 2.72 mg/dL High 0.40 - 1.00 mg/dL [facility] eGFR (CKD-EPI)non-race dependent 19 Low - PINF [facility] Glucose [Mass/Vol] 153 mg/dL High 65 - 99 mg/dL [facility] Interpretation and review of laboratory results Abnormal [facility] Potassium [Moles/Vol] 3.3 mmol/L Low 3.5 - 5.0 mmol/L [facility] Protein [Mass/Vol] 6.2 g/dL 6.0 - 8.0 g/dL [facility] Sodium [Moles/Vol] 147 mmol/L High 134 - 146 mmol/L [facility] Urea nitrogen [Mass/Vol] 83 mg/dL High 5 - 27 mg/dL [facility] Glucose Glucometer (BldC) [M ass/Vol]on 09-30-2023 Glucose [Mass/Vol] 205 mg/dL High 65 - 99 mg/dL [facility] Interpretation and review of laboratory results Abnormal [facility] Glucose [Mass/Vol] 146 mg/dL High 65 - 99 mg/dL [facility] Interpretation and review of laboratory results Abnormal [facility] Glucose [Mass/Vol] 220 mg/dL High 65 - 99 mg/dL [facility] Interpretation and review of laboratory results Abnormal [facility] Glucose [Mass/Vol] 173 mg/dL High 65 - 99 mg/dL [facility] Interpretation and review of laboratory results Abnormal [facility] Hemoglobin A1con 09-30-2023 Average glucose Estimated from glycated hemoglobin (Bld) [Mass/Vol] 134 mg/dL [facility] HbA1c (Bld) [Mass fraction] 6.3 % High 4.4 - 5.6 % [facility] Interpretation and review of laboratory results Abnormal [facility] Ionized magnesiumon 09-30-19 Magnesium Ionized ISE (Bld) [Moles/Vol] 0.86 mmol/L High 0.45 - 0.74 mmol/L [facility] Magnesiumon 09-30-2023 Magnesium [Mass/Vol] 1.9 mg/dL 1.8 - 2.6 mg/dL [facility] Magnesium Ionized ISE (Bld) [Moles/Vol]on 09-30-2023 Interpretation and review of laboratory results Abnormal [facility] No Panel Informationon 09-30 [facility] [...] [facility] PT Coag (PPP) [Time] 21.8 s High [facility] XR Chest Single viewon 09-30 SECTRAPACS [facility] Radiology Study observation (narrative) [facility] XR Chest Single viewOrdered By: Vida Jiménez on 09-30-2023 [facility] Work Phone: Bacteria identified Aer cx N om (Bld)on 09-29-2023 Interpretation and review of laboratory results Abnormal [facility] Service comment (Unsp spec) [Interp] Negative Abnormal [facility] Service comment (Unsp spec) [Interp] POSSIBLE COLLECTION CONTAMINATION. SINGLE POSITIVE CULTURE IS OF UNCERTAIN CLINICAL SIGNIFICANCE. SUGGEST CONTINUED MONITORING OF REMAINING BLOOD CULTURES. CONTACT MICROBIOLOGY IF FURTHER INFORMATION IS REQUIRED. [facility] Service comment (Unsp spec) [Interp] Staphylococcus species detected by PCR (not S. aureus, S.epidermidis, or S.lugdunensis). Abnormal [facility] CBC auto differentialon 09-01 Basophils (Bld) [#/Vol] 0.0 10*3/uL [facility] Basophils/100 WBC (Bld) 0.3 % [facility] Eosinophils (Bld) [#/Vol] 0.1 10*3/uL [facility] Eosinophils/100 WBC (Bld) 1.3 % [facility] Erythrocyte distribution width (RBC) [Ratio] 20.4 % High 11.5 - 15.0 % [facility] Hematocrit (Bld) [Volume fraction] 24.2 % Low 35 - 47 % [facility] Hemoglobin (Bld) [Mass/Vol] 7.8 g/dL Low 11.7 - 15.5 g/dL [facility] Interpretation and review of laboratory results Abnormal [facility] Lymphocytes (Bld) [#/Vol] 0.8 10*3/uL Low [facility] Lymphocytes/100 WBC (Bld) 8.6 % [facility] MCH (RBC) [Entitic mass] 30.9 pg 27 - 34 pg [facility] MCHC (RBC) [Mass/Vol] 32.1 g/dL 32 - 36 g/dL [facility] MCV (RBC) [Entitic vol] 96 fL 80 - 100 fL [facility] Monocytes (Bld) [#/Vol] 0.7 10*3/uL [facility] Monocytes/100 WBC (Bld) 7.9 % [facility] Neutrophils (Bld) [#/Vol] 7.7 10*3/uL High [facility] Neutrophils/100 WBC (Bld) 81.9 % [facility] Platelet mean volume (Bld) [Entitic vol] 10.0 fL 7 - 12 fL [facility] Platelets (Bld) [#/Vol] 100 10*3/uL Low [facility] RBC (Bld) [#/Vol] 2.51 10*6/uL Low [facility] WBC corrected for nucl RBC Auto (Bld) [#/Vol] 9.4 [facility] Calcium.ionized (Bld) [Mass/ Vol]on 09-29-2023 [facility] [...] Interpretation and review of laboratory results Abnormal [facility] Glucose [Mass/Vol] 254 mg/dL High 65 - 99 mg/dL [facility] Interpretation and review of laboratory results Abnormal [facility] Glucose [Mass/Vol] 187 mg/dL High 65 - 99 mg/dL [facility] Interpretation and review of laboratory results Abnormal [facility] Glucose [Mass/Vol] 160 mg/dL High 65 - 99 mg/dL [facility] Interpretation and review of laboratory results Abnormal [facility] Ionized calciumon 09-29-2023 Calcium.ionized (Bld) [Mass/Vol] 4.5 mg/dL 4.5 - 5.3 mg/dL [facility] Ionized magnesiumon 09-29-20 Magnesium Ionized ISE (Bld) [Moles/Vol] 0.59 mmol/L 0.45 - 0.74 mmol/L [facility] Magnesiumon 09-29-2023 Magnesium [Mass/Vol] 1.8 mg/dL 1.8 - 2.6 mg/dL [facility] Magnesium Ionized ISE (Bld) [Moles/Vol]on 09-29-2023 [facility] No Panel Informationon 09-29 [facility] Phosphoruson 09-29-2023 Phosphate [Mass/Vol] 3.7 mg/dL 2.4 - 4.9 mg/dL [facility] Protime & INRon 09-29-2023 INR Coag (PPP) [Relative time] 2.1 {INR} High [facility] Interpretation and review of laboratory results Abnormal [facility] PT Coag (PPP) [Time] 23.5 s High [facility] XR Chest Single viewon 09-29 SECTRAPACS [facility] Radiology Study observation (narrative) [facility] Ammoniaon 09-28-2023 Ammonia (P) [Moles/Vol] 36 umol/L 18 - 72 umol/L [facility] Ammonia (P) [Moles/Vol]on [facility] Bacteria identified Cx Nom ( U)on 09-28-2023 Service comment (Unsp spec) [Interp] URINE RECEIVED WITHOUT PRESERVATIVE [facility] Service comment (Unsp spec) [Interp] NO GROWTH AT <1000 CFU/mL [facility] CBC auto differentialon 09-01 Basophils (Bld) [#/Vol] 0.0 10*3/uL [facility] Basophils/100 WBC (Bld) 0.1 % [facility] Eosinophils (Bld) [#/Vol] 0.1 10*3/uL [facility] Eosinophils/100 WBC (Bld) 0.9 % [facility] Erythrocyte distribution width (RBC) [Ratio] 19.5 % High 11.5 - 15.0 % [facility] Hematocrit (Bld) [Volume fraction] 23.2 % Low 35 - 47 % [facility] Hemoglobin (Bld) [Mass/Vol] 7.5 g/dL Low 11.7 - 15.5 g/dL [facility] Interpretation and review of laboratory results Abnormal [facility] Lymphocytes (Bld) [#/Vol] 0.6 10*3/uL Low [facility] Lymphocytes/100 WBC (Bld) 5.2 % [facility] MCH (RBC) [Entitic mass] 31.1 pg 27 - 34 pg [facility] MCHC (RBC) [Mass/Vol] 32.5 g/dL 32 - 36 g/dL [facility] MCV (RBC) [Entitic vol] 96 fL 80 - 100 fL [facility] Monocytes (Bld) [#/Vol] 0.7 10*3/uL [facility] Monocytes/100 WBC (Bld) 6.5 % [facility] Neutrophils (Bld) [#/Vol] 9.5 10*3/uL High [facility] Neutrophils/100 WBC (Bld) 87.3 % [facility] Platelet mean volume (Bld) [Entitic vol] 10.0 fL 7 - 12 fL [facility] Platelets (Bld) [#/Vol] 81 10*3/uL Low [facility] RBC (Bld) [#/Vol] 2.43 10*6/uL Low [facility] WBC corrected for nucl RBC Auto (Bld) [#/Vol] 10.9 [facility] Calcium.ionized (Bld) [Mass/ Vol]on 09-28-2023 [facility] [...] Interpretation and review of laboratory results Abnormal [facility] Glucose [Mass/Vol] 234 mg/dL High 65 - 99 mg/dL [facility] Interpretation and review of laboratory results Abnormal [facility] Glucose [Mass/Vol] 185 mg/dL High 65 - 99 mg/dL [facility] Glucose [Mass/Vol] 179 mg/dL High 65 - 99 mg/dL [facility] Interpretation and review of laboratory results Abnormal [facility] Ionized calciumon 09-28-2023 Calcium.ionized (Bld) [Mass/Vol] 4.5 mg/dL 4.5 - 5.3 mg/dL [facility] Magnesiumon 09-28-2023 Magnesium [Mass/Vol] 2.0 mg/dL 1.8 - 2.6 mg/dL [facility] No Panel Informationon 09-28 Interpretation and review of laboratory results Abnormal [facility] Phosphoruson 09-28-2023 Phosphate [Mass/Vol] 5.3 mg/dL High 2.4 - 4.9 mg/dL [facility] Procalcitoninon 09-28-2023 Procalcitonin IA [Mass/Vol] 0.93 ng/mL High NINF - 0.05 ng/mL [facility] Procalcitonin IA [Mass/Vol]o n 09-28-2023 Interpretation and review of laboratory results Abnormal [facility] Protime & INRon 09-28-2023 INR Coag (PPP) [Relative time] 2.0 {INR} High [facility] Interpretation and review of laboratory results Abnormal [facility] PT Coag (PPP) [Time] 22.9 s High [facility] XR Chest Single viewon 09-28 [facility] Specimen type Nom (Spec) ARTERIAL [facility] CBC auto differentialon - Basophils (Bld) [#/Vol] 0.0 10*3/uL [facility] Basophils/100 WBC (Bld) 0.1 % [facility] Eosinophils (Bld) [#/Vol] 0.2 10*3/uL [facility] Eosinophils/100 WBC (Bld) 1.0 % [facility] Erythrocyte distribution width (RBC) [Ratio] 19.8 % High 11.5 - 15.0 % [facility] Hematocrit (Bld) [Volume fraction] 24.8 % Low 35 - 47 % [facility] Hemoglobin (Bld) [Mass/Vol] 8.1 g/dL Low 11.7 - 15.5 g/dL [facility] Interpretation and review of laboratory results Abnormal [facility] Lymphocytes (Bld) [#/Vol] 0.9 10*3/uL Low [facility] Lymphocytes/100 WBC (Bld) 5.1 % [facility] MCH (RBC) [Entitic mass] 30.8 pg 27 - 34 pg [facility] MCHC (RBC) [Mass/Vol] 32.5 g/dL 32 - 36 g/dL [facility] MCV (RBC) [Entitic vol] 95 fL 80 - 100 fL [facility] Monocytes (Bld) [#/Vol] 1.3 10*3/uL High [facility] Monocytes/100 WBC (Bld) 7.1 % [facility] Neutrophils (Bld) [#/Vol] 16.2 10*3/uL High [facility] Neutrophils/100 WBC (Bld) 86.7 % [facility] Platelet mean volume (Bld) [Entitic vol] 11.1 fL 7 - 12 fL [facility] Platelets (Bld) [#/Vol] 69 10*3/uL Low [facility] RBC (Bld) [#/Vol] 2.62 10*6/uL Low [facility] WBC corrected for nucl RBC Auto (Bld) [#/Vol] 18.7 High [facility] CT Head WO contraston 2022 SECTRAPACS [facility] Radiology Study observation (narrative) [facility] CT Head WO contrastOrdered B y: Matt Duncan on 09-27-2023 [facility] Work Phone: Calcium.ionized (Bld) [Mass/ Vol]on 09-27-2023 [facility] Interpretation and review of laboratory results Abnormal [facility] Interpretation and review of laboratory results Abnormal [facility] Comprehensive metabolic pane elver 09-27-2023 Albumin [Mass/Vol] [...] [Moles/Vol] 104 mmol/L 98 - 109 mmol/L [facility] CO2 [Moles/Vol] 27 mmol/L 22 - 32 mmol/L [facility] Creatinine [Mass/Vol] 3.54 mg/dL High 0.40 - 1.00 mg/dL [facility] eGFR (CKD-EPI)non-race dependent 14 Low - PINF [facility] Glucose [Mass/Vol] 142 mg/dL High 65 - 99 mg/dL [facility] Interpretation and review of laboratory results Abnormal [facility] Potassium [Moles/Vol] 3.7 mmol/L 3.5 - 5.0 mmol/L [facility] Protein [Mass/Vol] 6.3 g/dL 6.0 - 8.0 g/dL [facility] Sodium [Moles/Vol] 146 mmol/L 134 - 146 mmol/L [facility] Urea nitrogen [Mass/Vol] 85 mg/dL High 5 - 27 mg/dL [facility] Glucose Glucometer (BldC) [M ass/Vol]on 09-27-2023 Glucose [Mass/Vol] 142 mg/dL High 65 - 99 mg/dL [facility] Interpretation and review of laboratory results Abnormal [facility] Glucose [Mass/Vol] 132 mg/dL High 65 - 99 mg/dL [facility] Interpretation and review of laboratory results Abnormal [facility] Glucose [Mass/Vol] 125 mg/dL High 65 - 99 mg/dL [facility] Interpretation and review of laboratory results Abnormal [facility] Glucose [Mass/Vol] 171 mg/dL High 65 - 99 mg/dL [facility] Interpretation and review of laboratory results Abnormal [facility] Hemoglobin and hematocrit, b loodon 09-27-2023 Hematocrit (Bld) [Volume fraction] 23.0 % Low 35 - 47 % [facility] Hemoglobin (Bld) [Mass/Vol] 7.4 g/dL Low 11.7 - 15.5 g/dL [facility] Interpretation and review of laboratory results Abnormal [facility] Ionized calciumon 09-27-2023 Calcium.ionized (Bld) [Mass/Vol] 4.5 [...] Interpretation and review of laboratory results Abnormal [facility] Protime & INRon 09-27-2023 INR Coag (PPP) [Relative time] 2.3 {INR} High [facility] Interpretation and review of laboratory results Abnormal [facility] PT Coag (PPP) [Time] 25.5 s High [facility] XR Chest Single viewon 09-27 SECTRAPACS [facility] Radiology Study observation (narrative) [facility] XR Chest Single viewOrdered By: Krystal Anderson on 09-27-2023 [facility] Work Phone: [id number] Evaluationon 2022 vWf cleaving protease actual/normal Chromogenic method (PPP) [Rel catalytic activity/Vol] See Below [facility] Basic Metabolic Panelon 08-31 Anion gap [Moles/Vol] 17 mmol/L High 5 - 15 mmol/L [facility] Calcium [Mass/Vol] 8.1 mg/dL Low 8.5 - 10. 5 mg/dL [facility] Chloride [Moles/Vol] 103 mmol/L 98 - 109 mmol/L [facility] CO2 [Moles/Vol] 24 mmol/L 22 - [...] 78 mg/dL High 5 - 27 mg/dL [facility] CBC auto differentialon 08-31 Basophils (Bld) [#/Vol] 0.0 10*3/uL [facility] Basophils/100 WBC (Bld) 0.1 % [facility] Eosinophils (Bld) [#/Vol] 0.1 10*3/uL [facility] Eosinophils/100 WBC (Bld) 0.7 % [facility] Erythrocyte distribution width (RBC) [Ratio] 19.0 % High 11.5 - 15.0 % [facility] Hematocrit (Bld) [Volume fraction] 23.4 % Low 35 - 47 % [facility] Hemoglobin (Bld) [Mass/Vol] 7.7 g/dL Low 11.7 - 15.5 g/dL [facility] Interpretation and review of laboratory results Abnormal [facility] Lymphocytes (Bld) [#/Vol] 0.6 10*3/uL Low [facility] Lymphocytes/100 WBC (Bld) 5.2 % [facility] MCH (RBC) [Entitic mass] 30.6 pg 27 - 34 pg [facility] MCHC (RBC) [Mass/Vol] 32.9 g/dL 32 - 36 g/dL [facility] MCV (RBC) [Entitic vol] 93 fL 80 - 100 fL [facility] Monocytes (Bld) [#/Vol] 0.9 10*3/uL [facility] Monocytes/100 WBC (Bld) 8.1 % [facility] Neutrophils (Bld) [#/Vol] 9.7 10*3/uL High [facility] Neutrophils/100 WBC (Bld) 85.9 % [facility] Platelet mean volume (Bld) [Entitic vol] 11.0 fL 7 - 12 fL [facility] Platelets (Bld) [#/Vol] 36 10*3/uL Low [facility] RBC (Bld) [#/Vol] 2.52 10*6/uL Low [facility] WBC corrected for nucl RBC Auto (Bld) [#/Vol] 11.3 High [facility] Calcium.ionized (Bld) [Mass/ Vol]on 09-26-2023 Interpretation and review of laboratory results Abnormal [facility] Glucose Glucometer (BldC) [M ass/Vol]on 09-26-2023 Glucose [Mass/Vol] 173 mg/dL High 65 - 99 mg/dL [facility] Interpretation and review of laboratory results Abnormal [facility] Glucose [Mass/Vol] 191 mg/dL High 65 - 99 mg/dL [facility] Interpretation and review of laboratory results Abnormal [facility] Glucose [Mass/Vol] 149 mg/dL High 65 - 99 mg/dL [facility] Interpretation and review of laboratory results Abnormal [facility] Glucose [Mass/Vol] 155 mg/dL High 65 - 99 mg/dL [facility] Interpretation and review of laboratory results Abnormal [facility] Glucose [Mass/Vol] 168 mg/dL High 65 - 99 mg/dL [facility] Interpretation and review of laboratory results Abnormal [facility] Heparin PF4 ABon 09-26-2023 Heparin induced platelet IgG IA [OD] 0.113 NINF [facility] Heparin induced platelet IgG IA [OD]on 09-26-2023 [facility] Ionized calciumon 09-26-2023 Calcium.ionized (Bld) [Mass/Vol] 4.3 mg/dL Low 4.5 - 5.3 mg/dL [facility] Ionized magnesiumon 09-26-20 Magnesium Ionized ISE (Bld) [Moles/Vol] 0.58 mmol/L 0.45 - 0.74 mmol/L [facility] Magnesiumon 09-26-2023 Magnesium [Mass/Vol] 2.2 mg/dL 1.8 - 2.6 mg/dL [facility] No Panel Informationon 09-26 [facility] Phosphate [Mass/Vol]on 09-26 Interpretation and review of laboratory results Abnormal [facility] Phosphoruson 09-26-2023 Phosphate [Mass/Vol] 5.4 mg/dL High 2.4 - 4.9 mg/dL [facility] Potassiumon 09-26-2023 Potassium [Moles/Vol] 3.5 mmol/L 3.5 - 5.0 mmol/L [facility] Potassium [Moles/Vol]on 08-31 [facility] Protein electrophoresis, uri neon 09-26-2023 Pathologist interpretation (Bld) [Interp] SEE SEPARATE REPORT [facility] Protime & INRon 09-26-2023 INR Coag (PPP) [Relative time] 2.1 {INR} High [facility] Interpretation and review of laboratory results Abnormal [facility] PT Coag (PPP) [Time] 24.3 s High [facility] vWf cleaving protease actual /normal Chromogenic method (PPP) [Rel catalytic activity/Vol]on 09-26-2023 [facility] [id number] Panel Interpretatio non 09-25-2023 [id number] Panel Interpretation See below [facility] [id number] Path Review See below [facility] Anti XA unfractionated hepar inon 09-25-2023 Heparin [...] Hospital RBC (Bld) [#/Vol] 2.59 10*6/uL Low [facility] WBC corrected for nucl RBC Auto (Bld) [#/Vol] 10.5 [facility] Clinical Pathology Blood Sme ar Review Clinicalon [...] 68 mg/dL High 5 - 27 mg/dL [facility] Glucose Glucometer (BldC) [M ass/Vol]on 09-25-2023 Glucose [Mass/Vol] 228 mg/dL High 65 - 99 mg/dL [facility] Interpretation and review of laboratory results Abnormal [facility] Glucose [Mass/Vol] 138 mg/dL High 65 - 99 mg/dL [facility] Interpretation and review of laboratory results Abnormal [facility] Magnesiumon 09-25-2023 Magnesium [Mass/Vol] 2.1 mg/dL 1.8 - 2.6 mg/dL [facility] No Panel Informationon 09-25 [facility] Interpretation and review of laboratory results Abnormal [facility] Pathologist review Pathologi st comment (Bld) [Interp]on 09-25-2023 [facility] Phosphate [Mass/Vol]on 09-25 Interpretation and review of laboratory results Abnormal [facility] Phosphoruson 09-25-2023 Phosphate [Mass/Vol] 5.7 mg/dL High [...] spec) [Interp] NO GROWTH AT <1000 CFU/mL [facility] CBC auto differentialon 08-31 Basophils (Bld) [#/Vol] 0.0 10*3/uL [facility] Basophils/100 WBC (Bld) 0.1 % [facility] Eosinophils (Bld) [#/Vol] 0.0 10*3/uL [facility] Eosinophils/100 WBC (Bld) 0.1 % [facility] Erythrocyte distribution width (RBC) [Ratio] 19.4 % High 11.5 - 15.0 % [facility] Hematocrit (Bld) [Volume fraction] 25.5 % Low [...] Hospital RBC (Bld) [#/Vol] 2.75 10*6/uL Low [facility] WBC corrected for nucl RBC Auto (Bld) [#/Vol] 10.1 [facility] Cobalamin (Vitamin B12) [Mas s/Vol]on 09-24-2023 [facility] [...] Interpretation and review of laboratory results Abnormal [facility] Fibrinogenon 09-24-2023 Fibrinogen Coagulation.derive d (PPP) [Mass/Vol] 324 mg/dL 190 - 480 mg/dL [facility] Folateon 09-24-2023 Folate [Mass/Vol] 4.2 ng/mL Low 5.8 - PINF ng/mL [facility] Folate [Mass/Vol]on 09-24-20 Interpretation and review of laboratory results Abnormal [facility] Glucose Glucometer (BldC) [M ass/Vol]on 09-24-2023 Glucose [Mass/Vol] 133 mg/dL High 65 - 99 mg/dL [facility] Interpretation and review of laboratory results Abnormal [facility] Glucose [Mass/Vol] 165 mg/dL High 65 - 99 mg/dL [facility] Interpretation and review of laboratory results Abnormal [facility] Glucose [Mass/Vol] 162 mg/dL High 65 - 99 mg/dL [facility] Interpretation and review of laboratory results Abnormal [facility] Glucose [Mass/Vol] 201 mg/dL High 65 - 99 mg/dL [facility] Interpretation and review of laboratory results Abnormal [facility] Glucose [Mass/Vol] 135 mg/dL High 65 - 99 mg/dL [facility] Interpretation and review of laboratory results Abnormal [facility] Haptoglobinon 09-24-2023 Haptoglobin Nephelometry [Mass/Vol] 264 mg/dL High 32 - 228 mg/dL [facility] Haptoglobin Nephelometry [Ma ss/Vol]on 09-24-2023 Interpretation and review of laboratory results Abnormal [facility] Hemoglobin and hematocrit, b loodon 09-24-2023 Hematocrit [...] Hospital Iron saturation [Mass fraction] 87 High [facility] Magnesiumon 09-24-2023 Magnesium [Mass/Vol] 2.1 mg/dL 1.8 - 2.6 mg/dL [facility] Neutrophil cytoplasmic Ab IF Ql (S)on 09-24-2023 [facility] No Panel Informationon 09-24 [facility] Interpretation and review of laboratory results Abnormal [facility] Phosphoruson 09-24-2023 Phosphate [Mass/Vol] [...] 5.6 g/dL Low 6.0 - 8.0 g/dL [facility] Protime & INRon 09-24-2023 INR Coag (PPP) [...] review of laboratory results Abnormal [facility] Oxygen (Bld) [Partial pressure] 119 mm[Hg] High [facility] Oxygen therapy source and amount [CARE] NPPV [facility] Oxygen/Inspired gas setting [Volume Fraction] Ventilator 40 % [facility] pH (Bld) 7.392 [pH] 7.350 - 7.450 [facility] Specimen site Narrative LRad [facility] Specimen type Nom (Spec) ARTERIAL [facility] CBC auto differentialon 08-31 Basophils (Bld) [#/Vol] 0.0 10*3/uL [facility] Basophils/100 WBC (Bld) 0.1 % [facility] Eosinophils (Bld) [#/Vol] 0.0 10*3/uL [facility] Eosinophils/100 WBC (Bld) 0.1 % [facility] Erythrocyte distribution width (RBC) [Ratio] 19.2 % High 11.5 - 15.0 % [facility] Hematocrit (Bld) [Volume fraction] 24.9 % Low 35 - 47 % [facility] Hemoglobin (Bld) [Mass/Vol] 8.2 g/dL Low 11.7 - 15.5 g/dL [facility] Interpretation and review of laboratory results Abnormal [facility] Lymphocytes (Bld) [#/Vol] 0.6 10*3/uL Low [facility] Lymphocytes/100 WBC (Bld) 6.7 % [facility] MCH (RBC) [Entitic mass] 30.6 pg 27 - 34 pg [facility] MCHC (RBC) [Mass/Vol] 32.8 g/dL 32 - 36 g/dL [facility] MCV (RBC) [Entitic vol] 93 fL 80 - 100 fL [facility] Monocytes (Bld) [#/Vol] 0.6 10*3/uL [facility] Monocytes/100 WBC (Bld) 7.2 % [facility] Neutrophils (Bld) [#/Vol] 7.3 10*3/uL High [facility] Neutrophils/100 WBC (Bld) 85.9 % [facility] Platelet mean volume (Bld) [Entitic vol] 9.6 fL 7 - 12 fL [facility] Platelets (Bld) [#/Vol] 38 10*3/uL Low [facility] RBC (Bld) [#/Vol] 2.67 10*6/uL Low [facility] WBC corrected for nucl RBC Auto (Bld) [#/Vol] 8.5 [facility] Comprehensive metabolic pane elver 09-23-2023 Albumin [Mass/Vol] [...] 3.9 mmol/L 3.5 - 5.0 mmol/L [facility] Protein [Mass/Vol] 6.0 g/dL 6.0 - 8.0 g/dL [facility] Sodium [Moles/Vol] 138 mmol/L 134 - 146 mmol/L [facility] Urea nitrogen [Mass/Vol] 54 mg/dL High 5 - 27 mg/dL [facility] Glucose Glucometer (BldC) [M ass/Vol]on 09-23-2023 Glucose [Mass/Vol] 115 mg/dL High 65 - 99 mg/dL [facility] Interpretation and review of laboratory results Abnormal [facility] Glucose [Mass/Vol] 145 mg/dL High 65 - 99 mg/dL [facility] Interpretation and review of laboratory results Abnormal [facility] Glucose [Mass/Vol] 112 mg/dL High 65 - 99 mg/dL [facility] Interpretation and review of laboratory results Abnormal [facility] Glucose [Mass/Vol] 129 mg/dL High 65 - 99 mg/dL [facility] Interpretation and review of laboratory results Abnormal [facility] Heparin unfractionated Chrom ogenic method Qn (PPP)on 09-23-2023 [facility] Magnesiumon 09-23-2023 Magnesium [Mass/Vol] 2.2 mg/dL 1.8 - 2.6 mg/dL [facility] No Panel Informationon 09-23 Interpretation and review of laboratory results Abnormal [facility] Phosphoruson 09-23-2023 Phosphate [Mass/Vol] 5.5 mg/dL High 2.4 - 4.9 mg/dL [facility] Protime & INRon 09-23-2023 INR Coag (PPP) [Relative time] 1.4 {INR} High [facility] Interpretation and review of laboratory results Abnormal [facility] PT Coag (PPP) [Time] 16.4 s High [facility] ABO Rh Repeaton 09-22-2023 ABO O [facility] Rh Nom (Bld) Positive [facility] Basic Metabolic Panelon 08-31 Anion gap [Moles/Vol] [...] Hospital RBC (Bld) [#/Vol] 2.77 10*6/uL Low [facility] WBC corrected for nucl RBC Auto (Bld) [#/Vol] 8.3 [facility] Calcium.ionized (Bld) [Mass/ Vol]on 09-22-2023 Interpretation and review of laboratory results Abnormal [facility] Glucose Glucometer (BldC) [M ass/Vol]on 09-22-2023 Glucose [Mass/Vol] 89 mg/dL 65 - 99 mg/dL [facility] Glucose [Mass/Vol] 86 mg/dL 65 - 99 mg/dL [facility] Glucose [Mass/Vol] 113 mg/dL High 65 - 99 mg/dL [facility] Interpretation and review of laboratory results Abnormal [facility] Glucose [Mass/Vol] 139 mg/dL High 65 - 99 mg/dL [facility] Interpretation and review of laboratory results Abnormal [facility] Ionized calciumon 09-22-2023 Calcium.ionized (Bld) [Mass/Vol] 3.9 mg/dL Low 4.5 - 5.3 mg/dL [facility] Magnesiumon 09-22-2023 Magnesium [Mass/Vol] 2.4 mg/dL 1.8 - 2.6 mg/dL [facility] No Panel Informationon 09-22 Interpretation and review of laboratory results Abnormal [facility] POCT Arterial ICODEon 2022 Arterial patency Wrist [...] [facility] Specimen type Nom (Spec) ARTERIAL [facility] Phosphoruson 09-22-2023 Phosphate [Mass/Vol] 8.6 mg/dL High 2.4 - 4.9 mg/dL [facility] XR Chest Single viewon 09-22 SECTRAPACS [facility] Radiology Study observation (narrative) [facility] XR Chest Single viewOrdered By: Jose Tinoco on 09-22-2023 [facility] Work Phone: BLOOD CULTUREon 09-20-2023 Bacteria identified Aer cx Nom (Bld) CULTURE RESULTS NO GROWTH 5 DAYS Normal [facility] Bacteria identified Aer cx Nom (Bld) CULTURE RESULTS NO GROWTH 5 DAYS Normal [facility] CBC AND AUTO DIFFon 09-20-20 ABSOLUTE BASOPHIL 0.0 X10E9/L Normal 0.0-0.2 [facility] Comment on above: Performed By: #### C ROSALBA, 31913-5, 79336-6, 56311-7, 83807-2, 01405-8, 2157-6, 55653-1, PINR, CBCA, TSHR #### [facility] ([id number]) [address] [place] [address] 34320 ABSOLUTE NEUTROPHIL 7.0 X10E9/L High 1.5-6.6 [facility] Comment on above: Performed By: #### C ROSALBA, 61059-6, 98700-0, 90417-5, 36656-9, 55338-7, 2157-6, 34247-2, PINR, CBCA, TSHR #### [facility] ([id number]) [address] [place] [address] 00685 Basophils/100 WBC (Bld) 0.1 % Normal [facility] Comment on above: Performed By: #### C ROSALBA, 47037-2, 13806-8, 73061-3, 50946-8, 61798-7, 2157-6, 75581-9, PINR, CBCA, TSHR #### [facility] ([id number]) [address] [place] [address] 66359 Eosinophils (Bld) [#/Vol] 0.0 10*3/uL Normal 0.0-0.4 [facility] Comment on above: Performed By: #### C MP, 58138-1, 74767-0, 33865-1, 89982-6, 00539-2, 2157-6, 34300-9, PINR, CBCA, TSHR #### [facility] ([id number]) [address] [place] [address] 47957 Eosinophils/100 WBC (Bld) 0.5 % Normal [facility] Comment on above: Performed By: #### C MP, 63979-7, 84741-8, 08417-9, 28105-6, 77295-7, 2157-6, 21463-1, PINR, CBCA, TSHR #### [facility] ([id number]) [address] [place] [address] 25897 Erythrocyte distribution width (RBC) [Ratio] 20.5 % High 11.5-15.0 [facility] Comment on above: Performed By: #### C MP, 06477-1, 26754-5, 65600-3, 28186-0, 15615-5, 2157-6, 75111-6, PINR, CBCA, TSHR #### [facility] ([id number]) [address] [place] [address] 47021 Hematocrit (Bld) [Volume fraction] 29.5 % Low 35-47 [facility] Comment on above: Performed By: #### C MP, 10089-9, 23664-5, 15019-9, 45509-4, 61391-8, 2157-6, 12392-5, PINR, CBCA, TSHR #### [facility] ([id number]) [address] [place] [address] 26466 Hemoglobin (Bld) [Mass/Vol] 9.6 g/dL Low 11.7-15.5 [facility] Comment on above: Performed By: #### C MP, 00750-9, 69857-2, 57318-4, 25916-9, 96402-6, 2157-6, 57105-1, PINR, CBCA, TSHR #### [facility] ([id number]) [address] [place] [address] 30051 Lymphocytes (Bld) [#/Vol] 0.5 10*3/uL Low 1.0-3.5 [facility] Comment on above: Performed By: #### C MP, 95328-9, 78532-1, 23428-3, 14748-2, 49020-2, 2157-6, 87069-7, PINR, CBCA, TSHR #### [facility] ([id number]) [address] [place] [address] 92172 Lymphocytes/100 WBC (Bld) 6.7 % Normal [facility] Comment on above: Performed By: #### C MP, 57590-6, 52031-2, 82695-4, 61716-9, 56782-3, 2157-6, 17288-2, PINR, CBCA, TSHR #### [facility] ([id number]) [address] [place] [address] 31815 MCH (RBC) [Entitic mass] 30.5 pg Normal 27-34 [facility] Comment on above: Performed By: #### C MP, 63926-5, 52648-5, 89336-5, 43648-0, 96360-4, 2157-6, 77671-1, PINR, CBCA, TSHR #### [facility] ([id number]) [address] [place] [address] 60429 MCHC (RBC) [Mass/Vol] 32.5 g/dL Normal 32-36 [facility] Comment on above: Performed By: #### C MP, 90957-4, 65112-8, 24805-9, 64297-3, 59798-4, 2157-6, 53809-0, PINR, CBCA, TSHR #### [facility] ([id number]) [address] [place] [address] 27484 MCV (RBC) [Entitic vol] 94 fL Normal 80-100 [facility] Comment on above: Performed By: #### C MP, 32357-9, 01876-0, 19133-6, 59186-0, 46794-4, 2157-6, 59797-8, PINR, CBCA, TSHR #### [facility] ([id number]) [address] [place] [address] 92636 Monocytes (Bld) [#/Vol] 0.5 10*3/uL Normal 0-0.9 [facility] Comment on above: Performed By: #### C MP, 96953-4, 04541-3, 91419-4, 91136-9, 85386-0, 2157-6, 62808-5, PINR, CBCA, TSHR #### [facility] ([id number]) [address] [place] [address] 44742 Monocytes/100 WBC (Bld) 6.4 % Normal [facility] Comment on above: Performed By: #### C MP, 12259-2, 37149-8, 47457-0, 65834-0, 88761-4, 2157-6, 67896-9, PINR, CBCA, TSHR #### [facility] ([id number]) [address] [place] [address] 69209 Neutrophils/100 WBC (Bld) 86.3 % Normal [facility] Comment on above: Performed By: #### C MP, 41850-4, 28803-0, 76024-6, 73563-1, 62336-5, 2157-6, 40983-5, PINR, CBCA, TSHR #### [facility] ([id number]) [address] [place] [address] Platelet mean volume (Bld) [Entitic vol] 11.6 fL Normal 7-12 [facility] Comment on above: Performed By: #### C ROSALBA, 19949-6, 67365-8, 41399-9, 22366-6, 49949-8, 2157-6, 86153-7, PINR, CBCA, TSHR #### [facility] ([id number]) [address] [place] [address] 99947 Platelets (Bld) [#/Vol] 62 10*3/uL Low 150-450 [facility] Comment on above: Performed By: #### C ROSALBA, 06552-9, 11424-4, 25562-8, 22072-2, 92927-3, 2157-6, 22676-8, PINR, CBCA, TSHR #### [facility] ([id number]) [address] [place] [address] 00225 RBC COUNT 3.14 X10E12/L Low 3.80-5.20 [facility] Comment on above: Performed By: #### C ROSALBA, 42714-3, 72965-5, 48537-7, 19443-3, 10927-8, 2157-6, 00482-2, PINR, CBCA, TSHR #### [facility] ([id number]) [address] [place] [address] 56849 WBC (Bld) [#/Vol] 8.1 10*3/uL Normal 4.0-11.0 [facility] Comment on above: Performed By: #### C ROSALBA, 79450-8, 10544-7, 45713-5, 56032-3, 49924-5, 2157-6, 61329-6, PINR, CBCA, TSHR #### [facility] ([id number]) [address] [place] [address] 42224 CK [Catalytic activity/Vol]o n 09-20-2023 CPK 100 U/L Normal 24-170 [facility] Comment on above: Performed By: #### C ROSALBA, 76105-8, 57688-8, 56673-5, 50578-4, 70411-3, 2157-6, 90391-4, PINR, CBCA, TSHR #### [facility] ([id number]) [address] [place] [address] 71736 COMPREHENSIVE METABOLIC PANE Elver 09-20-2023 Albumin [Mass/Vol] 3.2 g/dL Normal 3.2-5.3 [facility] Comment on above: Performed By: #### C ROSALBA, 86041-4, 78530-4, 57470-6, 78880-6, 37641-9, 2157-6, 62881-9, PINR, CBCA, TSHR #### [facility] ([id number]) [address] [place] [address] 91937 ALP [Catalytic activity/Vol] 98 U/L Normal 39-130 [facility] Comment on above: Performed By: #### C ROSALBA, 29407-7, 07824-5, 73189-6, 82365-4, 06452-8, 2157-6, 42377-8, PINR, CBCA, TSHR #### [facility] ([id number]) [address] [place] [address] 25522 ALT [Catalytic activity/Vol] 27 U/L Normal 0-31 [facility] Comment on above: Performed By: #### C MP, 84872-5, 39048-7, 76624-2, 71501-2, 70784-5, 2157-6, 73630-3, PINR, CBCA, TSHR #### [facility] ([id number]) [address] [place] [address] 48496 Anion gap [Moles/Vol] 10 mmol/L Normal 5-15 [facility] Comment on above: Performed By: #### C MP, 75439-9, 97776-6, 38895-3, 80830-5, 44728-8, 2157-6, 29891-0, PINR, CBCA, TSHR #### [facility] ([id number]) [address] [place] [address] [place] [address] AST [Catalytic activity/Vol] 34 U/L Normal 0-41 [facility] Comment on above: Performed By: #### C MP, 59247-7, 09544-3, 27431-5, 10822-8, 04384-7, 2157-6, 53086-1, PINR, CBCA, TSHR #### [facility] ([id number]) [address] [place] [address] 32609 Bilirubin [Mass/Vol] 0.7 mg/dL Normal 0.3-1.2 [facility] Comment on above: Performed By: #### C MP, 38316-7, 17855-2, 96540-1, 87616-8, 33812-8, 2157-6, 51279-2, PINR, CBCA, TSHR #### [facility] ([id number]) [address] [place] [address] 16462 Calcium [Mass/Vol] 7.1 mg/dL Low 8.5-10.5 [facility] Comment on above: Performed By: #### C MP, 30813-1, 25761-1, 70388-9, 31204-1, 84559-7, 2157-6, 08884-7, PINR, CBCA, TSHR #### [facility] ([id number]) [address] [place] [address] 81546 Chloride [Moles/Vol] 108 mmol/L Normal 98-109 [facility] Comment on above: Performed By: #### C MP, 79020-6, 34211-5, 27760-3, 73181-1, 68753-0, 2157-6, 22205-2, PINR, CBCA, TSHR #### [facility] ([id number]) [address] [place] [address] 85678 CO2 [Moles/Vol] 15 mmol/L Low 22-32 [facility] Comment on above: Performed By: #### C MP, 36728-8, 83027-4, 49892-0, 93181-8, 95023-6, 2157-6, 03164-5, PINR, CBCA, TSHR #### [facility] ([id number]) [address] [place] [address] 89329 Creatinine [Mass/Vol] 6.52 mg/dL High 0.40-1.00 [facility] Comment on above: Result Comment: METH OD TRACEABLE TO IDMS STANDARD Performed By: #### C MP, 48194-4, 11765-5, 31391-2, 03595-2, 66516-9, 2157-6, 39986-5, PINR, CBCA, TSHR #### [facility] ([id number]) [address] [place] [address] 89689 GFR/1.73 sq M.predicted among non-blacks MDRD (S/P/Bld) [Vol rate/Area] 7 mL/min/{1.73_m2} Low >59 [facility] Comment on above: Result Comment: Reported eGFR is based on the CKD-EPI 2020 equation that does not use a race coefficient. Performed By: #### C MP, 14981-3, 73344-2, 52384-8, 29189-6, 07423-3, 2157-6, 53355-0, PINR, CBCA, TSHR #### [facility] ([id number]) [address] [place] [address] 20716 Glucose [Mass/Vol] 100 mg/dL High 65-99 [facility] Comment on above: Performed By: #### C MP, 30871-8, 38622-5, 68082-6, 56395-4, 02068-3, 2157-6, 39119-0, PINR, CBCA, TSHR #### [facility] ([id number]) [address] [place] [address] 23818 Potassium [Moles/Vol] 4.9 mmol/L Normal 3.5-5.0 [facility] Comment on above: Performed By: #### C ROSALBA, 56672-4, 49254-1, 92358-5, 23570-2, 38088-7, 2157-6, 04946-9, PINR, CBCA, TSHR #### [facility] ([id number]) [address] [place] [address] 02788 Protein [Mass/Vol] 6.4 g/dL Normal 6.0-8.0 [facility] Comment on above: Performed By: #### C ROSALBA, 02756-8, 60231-5, 53874-4, 54294-9, 11837-3, 2157-6, 94712-8, PINR, CBCA, TSHR #### [facility] ([id number]) [address] [place] [address] 84877 Sodium [Moles/Vol] 133 mmol/L Low 134-146 [facility] Comment on above: Performed By: #### C MP, 13345-4, 80150-4, 76140-4, 97865-5, 64274-0, 2157-6, 74390-4, PINR, CBCA, TSHR #### [facility] ([id number]) [address] [place] [address] 71570 Urea nitrogen [Mass/Vol] 99 mg/dL High 5-27 [facility] Comment on above: Performed By: #### C MP, 93773-6, 88301-9, 67397-6, 57614-2, 38777-3, 2157-6, 53310-1, PINR, CBCA, TSHR #### [facility] ([id number]) [address] [place] [address] BRAIN WO CONTon 3 CT BRAIN [...] Ceja MD on 09/20/2023 1:40 AM Normal [facility] Lactate (P stan) [Moles/Vol]o n 09-20-2023 Lactate [Moles/Vol] 1.5 mmol/L Normal 0.4-2.0 [facility] Comment on above: Performed By: #### C , 24402-6, 27196-8, 87830-3, 68970-3, 12839-9, 2157-6, 31909-4, PINR, CBCA, TSHR #### [facility] ([id number]) [address] [place] [address] 33697 LACTATE W/REFLEX 2.2 mmol/L High 0.4-2.0 [facility] Comment on above: Performed By: #### C , 35613-7, 00611-7, 11373-6, 04645-1, 53229-6, 2157-6, 12281-9, PINR, CBCA, TSHR #### [facility] ([id number]) [address] [place] [address] 82847 MAGNESIUMon 09-20-2023 Magnesium [Mass/Vol] 2.9 mg/dL High 1.8-2.6 [facility] Comment on above: Performed By: #### C MP, 31805-7, 39243-5, 23859-6, 83575-1, 20085-8, 2157-6, 44674-2, PINR, CBCA, TSHR #### [facility] ([id number]) [address] [place] [address] 02599 Natriuretic peptide B [Mass/ Vol]on 09-20-2023 Natriuretic peptide B (Bld) [Mass/Vol] 555 pg/mL High <100.0 [facility] Comment on above: Performed By: #### C MP, 88989-5, 29144-9, 25961-9, 21970-6, 12621-7, 2157-6, 63336-7, PINR, CBCA, TSHR #### [facility] ([id number]) [address] [place] [address] 48511 PROTIME AND INRon 09-20-2023 INR Coag (PPP) [Relative time] {INR} Critically high 0.8-1.1 [facility] Comment on above: Performed By: #### C MP, 81331-9, 96469-4, 01248-3, 49327-5, 54126-5, 2157-6, 55603-3, PINR, CBCA, TSHR #### [facility] ([id number]) [address] [place] [address] 48032 PT Coag (PPP) [Time] 191.2 s High 9.8-13.2 [facility] Comment on above: Result Comment: NEW REFERENCE RANGE Performed By: #### C MP, 75799-2, 90536-4, 02505-9, 53587-5, 74898-7, 2157-6, 23577-3, PINR, CBCA, TSHR #### [facility] ([id number]) [address] [place] [address] 14892 Procalcitonin IA [Mass/Vol]o n 09-20-2023 PROCALCITONIN 0.53 ng/mL High <0.05 [facility] Comment on above: Result Comment: NOTE <0.50 ng/mL - Low risk of severe sepsis and/or septic shock. <2.00 ng/mL - Recommend retesting within 6-24 hours. >2.00 ng/mL - High risk of sepsis and/or septic shock. Performed By: #### C MP, 81189-7, 16811-5, 83666-0, 62774-7, 02778-0, 2157-6, 07921-7, PINR, CBCA, TSHR #### [facility] ([id number]) [address] [place] [address], [place] [address] SARS/FLU A+B/RSV by NAAT/Mol ecularon 09-20-2023 SARS/FLU [...] operators who are performing tests using either GenePoster[employer] DX or Screenz systems and is limited to laboratories that [...] repeat. Fact Sheet for Healthcare Providers: https://www.fda.gov/media /115452/download Fact Sheet for Patients: https://www.fda.gov/media /613811/download Normal [facility] Comment on above: Performed By: #### C ROSALBA, 72447-9, 80797-4, 47591-4, 36857-7, 06260-7, 2157-6, 25754-5, PINR, CBCA, TSHR #### [facility] ([id number]) [address] [place] [address]37 TROPONIN Ion 09-20-2023 Troponin I.cardiac [Mass/Vol] 0.02 ng/mL Normal 0.00-0.04 [facility] Comment on above: Performed By: #### C ROSALBA, 38319-3, 23838-3, 32813-1, 75258-6, 86858-1, 2157-6, 40579-1, PINR, CBCA, TSHR #### [facility] ([id number]) [address] [place] [address] 39919 TSH WITH REFLEXon 09-20-2023 TSH 3.37 uIU/mL Normal 0.49-4.67 [facility] Comment on above: Performed By: #### C ROSALBA, 82383-7, 65935-4, 50545-0, 11997-1, 48502-7, 2157-6, 58403-9, PINR, CBCA, TSHR #### [facility] ([id number]) [address] [place] [address] 82688 VENOUS BLOOD GASon 3 RONNIE'S TEST Normal [facility] Comment on above: Performed By: #### V BG #### [facility] ([id number]) [address] [place] [address] 58880 BASE,DEFICIT 13.0 MMOL/L High 0.0-2.0 [facility] Comment on above: Performed By: #### V BG #### [facility] ([id number]) [address] [place] [address] 79389 Body temperature 98.6 [degF] Normal 37.0 [facility] Comment on above: Performed By: #### V BG #### [facility] ([id number]) [address] [place] [address] 20233 HCO3 (Bld) [Moles/Vol] 14.0 mmol/L Low 20.0-24.0 [facility] Comment on above: Performed By: #### V BG #### [facility] ([id number]) [address] [place] [address] 83081 INSP. O2 CONC. 21 % Normal [facility] Comment on above: Performed By: #### V BG #### [facility] ([id number]) [address] [place] [address] 63237 Oxygen saturation in Blood 53.0 % Low >80.0 [facility] Comment on above: Performed By: #### V BG #### [facility] ([id number]) [address] [place] [address] 52085 OXYGEN SOURCE RoomAir Normal [facility] Comment on above: Performed By: #### V BG #### [facility] [facility] ([id number]) [address] [place] [address] [id number] PCO2, VENOUS 37.7 MMHG Normal 35-50 [facility] Comment on above: Performed By: #### V BG #### [facility] ([id number]) [address] [place] [address] 16627 PH, VENOUS 7.179 Low 7.320-7.420 [facility] Comment on above: Performed By: #### V BG #### [facility] ([id number]) [address] [place] [address] 29892 PO2, VENOUS 35 MMHG Normal 30-50 [facility] Comment on above: Performed By: #### V BG #### [facility] ([id number]) [address] [place] [address] 24282 SAMPLE SITE N/A Normal [facility] Comment on above: Performed By: #### V BG #### [facility] ([id number]) [address] [place] [address] 67280 SAMPLE TYPE VENOUS Normal [facility] Comment on above: Performed By: #### V BG #### [facility] ([id number]) [address] [place] [address] 21820 XR CHEST 1 VWon 09-20-2023 XR CHEST 1 VW XR CHEST 1 VW Single view chest XR CHEST 1 VW History: weakness Comparison: September 03 Impression: * No consolidation or pleural fluid. No acute findings. Moderate cardiomegaly Finalized by Watson Ceja MD on 09/20/2023 1:42 AM Normal [facility] aPTT Coag (PPP) [Time]on aPTT Coag (Bld) [Time] 88 s High 26-37 [facility] Comment on above: Result Comment: NEW REFERENCE RANGE Performed By: #### C MP, 92815-1, 20088-1, 02990-1, 37224-1, 08756-3, 2157-6, 31533-8, PINR, CBCA, TSHR #### [facility] ([id number]) [address] [place] [address], [place] [address] Vital Signs Date Time Vital Sign Value [...] (BldA) [Mass fraction] 100 % [facility] Comment on above: Performed By: #### VBG ####[facility] ([id number])[address] [place] [address] 12-23-2023 14:44-0400 Body temperature 98.6 [degF] Brandon Carrillo MD Work Phone: 4(656)547-727134 [place] [address] 12-23-2023 14:44-0400 SaO2% (BldA) [Mass fraction] 100 % Brandon Carrillo MD Work Phone: 3(888)943-057234 [place] [address] 10-05-2023 14:56-0500 Diastolic blood pressure 65 mm[Hg] Elvi Schreiber MD Work Phone: 1(931)036-747034 [place] [address] 10-05-2023 14:56-0500 Systolic blood pressure 106 mm[Hg] Elvi Schreiber MD Work Phone: 2(840)616-311834 [place] [address] 10-05-2023 12:55-0500 Body temperature 98.01 [degF] Elvi Schreiber MD Work Phone: 6(765)437-725634 [place] [address] 10-05-2023 12:55-0500 Respiratory rate 18 /min Elvi Schreiber MD Work Phone: [facility] 10-05-2023 12:55-0500 SaO2% (BldA) [Mass fraction] 94 % Elvi Schreiber MD Work Phone: [facility] [facility] [employer] [facility] 10-05-2023 09:01-0500 Heart rate 67 /min Elvi Schreiber MD Work Phone: 8(707)603-601434 [place] [address] 10-05-2023 07:08-0500 Body temperature 98.6 [degF] Elvi Schreiber MD Work Phone: [facility] [facility] [employer] [facility] 10-05-2023 07:08-0500 SaO2% (BldA) [Mass fraction] 98 % Elvi Schreiber MD Work Phone: 0(674)186-416934 [place] [address] 10-05-2023 06:00-0500 Body mass index (BMI) [Ratio] 41.64 kg/m2 Elvi Schreiber MD Work Phone: 8(187)523-340434 [place] [address] 10-05-2023 06:00-0500 Body weight 113.5 kg Elvi Schreiber MD Work Phone: [facility] [facility] [employer] [facility] 09-27-2023 09:40-0500 Body temperature 98.6 [degF] Elvi Schreiber MD Work Phone: [facility] [employer] [facility] 09-27-2023 09:40-0500 SaO2% (BldA) [Mass fraction] 95.0 % Elvi Schreiber MD Work Phone: [facility] 09-27-2023 09:40-0500 SaO2% (BldA) [Mass fraction] 100 % Elvi Schreiber MD Work Phone: [facility] 09-23-2023 05:38-0500 Body temperature 98.6 [degF] Elvi Schreiber MD Work Phone: [facility] 09-23-2023 05:38-0500 SaO2% (BldA) [Mass fraction] 99.0 % Elvi Schreiber MD Work Phone: [facility] 09-23-2023 05:38-0500 SaO2% (BldA) [Mass fraction] 100 % Elvi Schreiber MD Work Phone: [facility] 09-22-2023 12:39-0500 Body temperature 98.6 [degF] Elvi [...] Date Encounter Type Care Provider Facility Start: 03-06-2024 End: 03-06-2024 ambulatory WILLIAM AYERS [facility] Start: 03-04-2024 End: 03-04-2024 ambulatory KELLI SANDHU [facility] Start: 12-31-2023 End: 12-31-2023 ambulatory BRANDON CARRILLO [facility] Start: 12-22-2023 End: 12-29-2023 Evaluation and management of inpatient CAROL AKINS [facility] Start: 12-22-2023 End: 12-29-2023 Emergency department patient visit SALBADOR DUTTON [facility] Start: 12-22-2023 End: 12-29-2023 Evaluation and management of inpatient Justyn Burch DO Work Phone: [facility] - NURYS 5E Acute Start: 12-22-2023 End: 12-22-2023 ambulatory MITRA CROWELL [facility] Start: 12-18-2023 Telephone encounter Luke WARREN [facility] Comment on above: Hospital Follow-up ( 2-4 week F/U ) Start: 12-16-2023 Orders Only Mitra Crowell MD Work Phone: [facility] Comment on above: Rectal cancer (CMS-H CC) (Primary Dx) Start: 12-11-2023 Orders Only Mitra Crowell MD Work Phone: [facility] Start: 12-10-2023 Telephone encounter Shira Rosenberg [facility] Comment on above: Clearance Start: 12-09-2023 Telephone encounter Linda Agarwal APRN-PRODUCT GRADER Work Phone: [facility] Start: 12-04-2023 End: 12-04-2023 Evaluation and management of inpatient CARIN MACHADO [facility] Start: 11-30-2023 End: 12-04-2023 [facility] Start: 11-30-2023 End: 12-04-2023 Evaluation and management of inpatient TELMAKAYLA BLUM [facility] Start: 11-29-2023 End: 12-04-2023 Evaluation and management of inpatient KELLI GOMES [facility] Start: 11-27-2023 Telephone encounter Cesia Monzon [facility] Start: 11-26-2023 End: 12-04-2023 Evaluation and management of inpatient KELLI POLLARD [facility] Start: 11-25-2023 Telephone encounter Francie Arambula [facility] Comment on above: Hospital Follow-up Start: 11-23-2023 End: 12-04-2023 Evaluation and management of inpatient HALEY [facility] Start: 11-21-2023 End: 12-04-2023 Evaluation and management of inpatient JAIME DAVIS IV [facility] Start: 11-20-2023 End: 12-04-2023 Evaluation and management of inpatient SALBADOR HOWELL [facility] Start: 11-18-2023 End: 12-04-2023 Evaluation and management of inpatient HALEY [facility] Start: 11-18-2023 End: 12-04-2023 Evaluation and management of inpatient COLLEEN CAMPBELL [facility] Start: 11-17-2023 End: 12-04-2023 Evaluation and management of inpatient DILLON ANTON [facility] Start: 11-16-2023 End: 12-04-2023 Evaluation and management of inpatient DILLON ANTON [facility] Start: 11-13-2023 Telephone encounter Luke WARREN [facility] Comment on above: Hospital Follow-up ( 2-4 week follow up ) Start: 11-13-2023 End: 12-04-2023 Evaluation and management of inpatient TRISTAN TODD [facility] Start: 11-12-2023 End: 12-04-2023 Evaluation and management of inpatient MURPHY KIRK [facility] Start: 11-11-2023 End: 12-04-2023 [facility] Start: 11-10-2023 End: 12-04-2023 Evaluation and management of inpatient SANTANA ISAAC [facility] Start: 11-09-2023 End: 12-04-2023 Evaluation and management of inpatient MARICRUZ C [facility] Start: 11-08-2023 End: 12-04-2023 Evaluation and management of inpatient [facility] Start: 11-07-2023 End: 11-14-2023 [facility] Start: 11-07-2023 End: 12-04-2023 Evaluation and management of inpatient [facility] Start: 11-07-2023 End: 12-04-2023 Evaluation and management of inpatient FAVIO LINTON [facility] Start: 11-06-2023 Telephone encounter Luke Daigle CMA PHN [facility] Start: 11-06-2023 End: 12-04-2023 [facility] Start: 11-05-2023 End: 12-04-2023 Evaluation and management of inpatient NATASHA ROBERTS [facility] Start: 11-03-2023 Telephone encounter Mary Kay Newell [employer]BAC[employer] WAREHOUSE MANAGER-[facility] Work Phone: [facility] Start: 10-31-2023 End: 12-04-2023 Evaluation and management of inpatient CELE Mary GUERRERO [facility] Start: 10-31-2023 End: 12-04-2023 Evaluation and management of inpatient HARMONY Yesenia CHIN [facility] Start: 10-31-2023 End: 12-04-2023 Evaluation and management of inpatient GREER S BETSEY [facility] Start: 10-30-2023 End: 12-04-2023 Evaluation and management of inpatient LIV [facility] Start: 10-30-2023 End: 12-04-2023 Evaluation and management of inpatient [facility] Start: 10-30-2023 End: 12-04-2023 Evaluation and management of inpatient GERTRUDENIKKI Akua SILVER [facility] Start: 10-27-2023 End: 12-04-2023 Evaluation and management of inpatient [facility] Start: 10-27-2023 End: 12-04-2023 Evaluation and management of inpatient [facility] Akua [facility] Start: 10-25-2023 End: 12-04-2023 Evaluation and management of inpatient MITRA CROWELL [facility] Start: 10-24-2023 End: 12-04-2023 Evaluation and management of inpatient YANNATray CLAROSYAD [facility] Start: 10-23-2023 End: 12-04-2023 Evaluation and management of inpatient SOY TALAMANTES [facility] Start: 10-23-2023 End: 12-04-2023 [facility] Start: 10-23-2023 End: 12-04-2023 Evaluation and management of inpatient [facility] Start: 10-22-2023 End: 10-22-2023 Evaluation and management of inpatient KOMAL TONG [facility] Start: 10-22-2023 End: 10-22-2023 Evaluation and management of inpatient [facility] Start: 10-21-2023 End: 10-21-2023 [facility] Start: 10-21-2023 End: 10-25-2023 Evaluation and management of inpatient ANDREAS VARELA [facility] Start: 10-21-2023 End: 10-22-2023 Evaluation and management of inpatient [facility] Start: 10-20-2023 End: 12-04-2023 Evaluation and management of inpatient RONNIE FITZGERALD [facility] Start: 10-20-2023 End: 10-21-2023 Evaluation and management of inpatient [facility] Start: 10-20-2023 End: 12-04-2023 Evaluation and management of inpatient YENY ADEOLA [facility] Start: 10-19-2023 End: 12-04-2023 Evaluation and management of inpatient TANNER HARRIS [facility] Start: 10-19-2023 End: 12-04-2023 Evaluation and management of inpatient TANNER HARRIS [facility] Start: 10-19-2023 End: 10-20-2023 Evaluation and management of inpatient COLIN REYES [facility] Start: 10-17-2023 End: 10-20-2023 Emergency department patient visit JUAN LOPEZ [facility] Start: 10-17-2023 End: 10-19-2023 Evaluation and management of inpatient CAROL AKINS [facility] Start: 10-14-2023 Telephone encounter Yeny Escobar CMA [facility] Start: 10-07-2023 End: 10-07-2023 ambulatory ELVI Mccarthy [facility] Start: 10-07-2023 Follow-up encounter [facility] Work Phone: [facility] Comment on above: Typical atrial flutt er (CMS-HCC) (Primary Dx) Start: 10-05-2023 End: 10-06-2023 Evaluation and management of inpatient LILIA Broderick [facility] Start: 10-04-2023 Documentation procedure [facility] Work Phone: [facility] Start: 09-30-2023 End: 10-06-2023 Evaluation and management of inpatient [facility] Start: 09-29-2023 End: 10-06-2023 Evaluation and management of inpatient [facility] Start: 09-28-2023 End: 10-06-2023 Evaluation and management of inpatient [facility] Start: 09-27-2023 End: 10-06-2023 Evaluation and management of inpatient [facility] Start: 09-27-2023 End: 10-06-2023 Evaluation and management of inpatient [facility] Start: 09-22-2023 End: 10-06-2023 Evaluation and management of inpatient GREER LEGGETT [facility] Start: 09-21-2023 End: 10-06-2023 Evaluation and management of inpatient DAMIÁN ENG [facility] Start: 09-20-2023 End: 10-06-2023 [facility] Start: 09-20-2023 End: 10-05-2023 Evaluation and management of inpatient TANNER HARRIS [facility] Start: 09-20-2023 End: 10-05-2023 Evaluation and management of inpatient Tanner Harris MD Work Phone: [facility] - GEN 7 Acute Start: 09-20-2023 End: 09-21-2023 Emergency department patient visit PATRICK [facility] Start: 09-20-2023 End: 09-20-2023 Emergency department patient visit CAROL Akua FRIDA [facility] Procedures Date Procedure Procedure Detail Performing Clinician [...] End: 12-26-2023 TRANSFUSE RED BLOOD CELLS Prashant Rivers P A-C Work Phone: Start: 12-26-2023 Antibody screen Brandon fishman MD Work Phone: Start: 12-26-2023 Blood count hematocrit Prashant Gutierrezks PA-C Work Phone: Start: 12-26-2023 Blood typing serologic abo Prashant Fatima Rivers PA-C Work Phone: Start: 12-25-2023 Gluc bld gluc mntr d ev cleared fda spec home use Zuri Herrera MD Work Phone: Start: 12-25-2023 Gluc bld gluc mntr d ev cleared fda spec home use Zuri Herrera MD Work Phone: Start: 12-25-2023 ENTEROSTOMAL THERAPY EVAL AND TREAT Mandi Flores [employer] WAREHOUSE MANAGER-PRODUCT GRADER Work Phone: Start: 12-25-2023 Blood count hematocrit [...] Phone: Start: 12-22-2023 PULSE OXIMETRY, SPOT Rocio seph George Medina MD Work Phone: Start: 12-22-2023 Ct thorax w/contrast material Salbador Madrid DO Work Phone: Start: 12-22-2023 Ct abdomen & pelvis w/contrast material Salbador Nato DO Work Phone: Start: 12-22-2023 Gluc bld gluc mntr d ev cleared fda spec home use Justyn Burch DO Work Phone: Start: 12-22-2023 Radiologic exam ches t single view Salbador Madrid DO Work Phone: Start: 12-22-2023 Urnls dip stick/tabl et rgnt auto w/o microscopy Justyn Burch DO Work Phone: Start: 12-22-2023 Culture bacterial quanttative colony count urine Salbador Nato DO Work Phone: Start: 12-22-2023 ER EXTRA URINE Salbador Bl edsoe DO Work Phone: Start: 12-22-2023 End: 12-22-2023 Basic metabolic panel calcium total Salbador Nato DO Work Phone: Start: 12-22-2023 Hepatic function panel Salbador Nato DO Work Phone: Start: 12-22-2023 Ecg routine ecg w/le ast 12 lds trcg only w/o i&r Justyn Burch DO Work Phone: Start: 12-22-2023 End: 12-22-2023 Culture bacterial blood aerobic w/id isolates Salbador Madrid DO Work Phone: Start: 10-18-2023 Microalbumin [Mass/v olume] in Urine by Test strip Luke Daigle CMA Start: 10-05-2023 Gluc bld gluc mntr d [...] 10-04-2023 Basic metabolic pane l calcium total Elvi Schreiber MD Work Phone: Start: 10-03-2023 [...] 10-03-2023 Basic metabolic panel calcium total Luly Cooperix PA-C Work Phone: Start: 10-02-2023 End: 10-02-2023 Comprehensive metabolic panel Jaime Davis TOB[employer] WAREHOUSE MANAGER-PRODUCT GRADER Work Phone: Start: 10-02-2023 Drug screen quantita tive digoxin total Greer S Truckor PA-Dru Work Phone: Start: 10-02-2023 Heparin assay Elvi [...] Start: 10-01-2023 Comprehensive metabo lic panel Jaime Davis [employer] WAREHOUSE MANAGER-PRODUCT GRADER Work Phone: Start: 09-30-2023 Gluc bld gluc mntr d ev cleared fda spec home use Tanner Harris MD Work Phone: Start: 09-30-2023 End: 09-30-2023 Potassium serum plasma/whole blood Salbador Howell TOB[employer] WAREHOUSE MANAGER-PRODUCT GRADER Work Phone: Start: 09-30-2023 Gluc bld gluc mntr d ev cleared fda spec home use Tanner Harris MD Work Phone: Start: 09-30-2023 Gluc bld gluc mntr d ev cleared fda spec home use Tanner Harris MD Work Phone: Start: 09-30-2023 Radiologic exam ches t single view Jaime Davis TOB[employer] WAREHOUSE MANAGER-PRODUCT GRADER Work Phone: Start: 09-30-2023 Comprehensive metabo lic panel Jaime Davis TOBAC[employer] WAREHOUSE MANAGER-PRODUCT GRADER Work Phone: Start: 09-29-2023 Gluc bld gluc mntr d ev cleared fda spec home use Tanner Harris MD Work Phone: Start: 09-29-2023 Gluc bld gluc mntr d ev cleared fda spec home use Tanner Harris MD Work Phone: Start: 09-29-2023 Gluc bld gluc mntr d ev cleared fda spec home use Tanner Harris MD Work Phone: Start: 09-29-2023 Assay of magnesium Kalyan Howell [employer] WAREHOUSE MANAGER-PRODUCT GRADER Work Phone: Start: 09-29-2023 Gluc bld gluc mntr d ev cleared fda spec home use Tanner Harris MD Work Phone: Start: 09-29-2023 Radiologic exam ches t single view Jaime Davis TOBAC[employer] WAREHOUSE MANAGER-PRODUCT GRADER Work Phone: Start: 09-29-2023 Comprehensive metabo lic panel Jaime Davis TOBAC[employer] WAREHOUSE MANAGER-PRODUCT GRADER Work Phone: Start: 09-28-2023 Gluc bld gluc [...] Radiologic exam ches t single view Jaime Daivs TOBACCO WAREHOUSE MANAGER-PRODUCT GRADER Work Phone: Start: 09-28-2023 Blood count complete auto&auto difrntl wbc Jaime Davis TOB[employer] WAREHOUSE MANAGER-PRODUCT GRADER Work Phone: Start: 09-28-2023 Comprehensive metabo lic panel Jaime Davis TOBAC[employer] WAREHOUSE MANAGER-PRODUCT GRADER Work Phone: Start: 09-27-2023 Calcium ionized Brigida HOFF Work Phone: Start: 09-27-2023 Gluc bld gluc mntr d ev cleared fda spec home use Tanner Harris MD Work Phone: Start: 12-29-2023 Gluc bld gluc mntr d ev cleared fda spec home use Tanner Harris MD Work Phone: Start: 09-27-2023 VENTILATION Mohfady cotton MD Work Phone: Start: 09-27-2023 Ct head/brain w/o co ntrast material Brigida HOFF Work Phone: Start: 09-27-2023 End: 09-27-2023 Calcium ionized Brigida Akins PA Work Phone: Start: 09-27-2023 Radiologic exam ches t single view Brigida HOFF Work Phone: Start: 09-27-2023 Blood gases any comb ination ph pco2 po2 co2 hco3 Tanner Harris MD Work Phone: Start: 09-27-2023 Gluc bld gluc mntr d ev cleared fda spec home use Tanner Harris MD Work Phone: Start: 09-27-2023 Culture bacterial bl ood aerobic w/id isolates Danie Reid TOBACCO WAREHOUSE MANAGER-PRODUCT GRADER Work Phone: Start: 09-27-2023 End: 09-27-2023 Culture bacterial quanttative colony count urine Danie Reid TOBACCO WAREHOUSE MANAGER-PRODUCT GRADER Work Phone: Start: 09-27-2023 Comprehensive metabo lic panel [employer] Work Phone: Start: 09-26-2023 Antibody identificat ion platelet antibodies Keron Stahl TOBACCO WAREHOUSE MANAGER-PRODUCT GRADER Work Phone: Start: 09-26-2023 End: 09-26-2023 Basic metabolic panel calcium total GreerRelevant [employer]or PA-C Work Phone: Start: 09-25-2023 Gluc bld gluc [...] 09-25-2023 Comprehensive metabo lic panel Greer S Betsey MARTINEZ Work Phone: Start: 09-24-2023 Gluc bld gluc mntr d ev cleared fda spec home use Tanner Harris MD Work Phone: Start: 09-24-2023 Gluc bld gluc mntr d ev cleared fda spec home use Tanner Harris MD Work Phone: Start: 09-24-2023 Gluc bld gluc mntr d ev cleared fda spec home use Tanner Harris MD Work Phone: Start: 09-24-2023 [id number] PANEL INTERPRETATION Keron Stahl TOBAC[employer] WAREHOUSE MANAGER-PRODUCT GRADER Work Phone: Start: 09-24-2023 Cyanocobalamin vitamin b-12 Keron Stahl TOBAC[employer] WAREHOUSE MANAGER-PRODUCT GRADER Work Phone: Start: 09-24-2023 Gluc bld gluc mntr d ev cleared fda spec home use Tanner Harris MD Work Phone: Start: 09-24-2023 CLINICAL PATHOLOGY B LOOD SMEAR REVIEW Samanta Wright MD Work Phone: Start: 09-24-2023 Gluc bld gluc mntr d ev cleared fda spec home use Tanner Harris MD Work Phone: Start: 09-24-2023 Comprehensive metabo lic panel Marielena Arias TOBAC[employer] WAREHOUSE MANAGER-PRODUCT GRADER Work Phone: Start: 09-23-2023 Gluc bld gluc mntr d ev cleared fda spec home use Tanner Harris MD Work Phone: Start: 09-23-2023 Culture bacterial quanttative colony count urine Luly Marcial TOBAC[employer] WAREHOUSE MANAGER-PRODUCT GRADER Work Phone: Start: 09-23-2023 End: 09-23-2023 Gluc [...] Start: 09-23-2023 Comprehensive metabo lic panel Marielena Arias TOBAC[employer] WAREHOUSE MANAGER-PRODUCT GRADER Work Phone: Start: 09-23-2023 VENTILATION Damián Segura [...] view Greer Leggett PA-C Work Phone: Start: 09-22-2023 Calcium ionized Tanner Harris MD Work Phone: Start: 09-22-2023 End: 09-22-2023 Calcium ionized Salbador Howell TOBACCO WAREHOUSE MANAGER-PRODUCT GRADER Work Phone: Start: 09-22-2023 REPEATED ABORH Salbador Sc hroeder TOBACCO WAREHOUSE MANAGER-PRODUCT GRADER Work Phone: Start: 09-22-2023 Basic metabolic pane l calcium total Salbador Howell TOBACCO WAREHOUSE MANAGER-PRODUCT GRADER Work Phone: Start: 09-22-2023 End: 09-22-2023 Electrolyte [...] venous cath age 7 yr/> Shiraz Delgado TOBACCO WAREHOUSE MANAGER-PRODUCT GRADER Work Phone: Start: 09-21-2023 Radiologic exam ches t single view Damián Eng MD Work Phone: Start: 09-21-2023 Electrolyte panel Jessica Rivera MD Work Phone: Start: 09-21-2023 Gluc bld gluc mntr d ev cleared fda spec home use Tanner Harris MD Work Phone: Start: 09-21-2023 Basic metabolic pane l calcium total Salbador Howell TOB[employer] WAREHOUSE MANAGER-PRODUCT GRADER Work Phone: Start: 09-21-2023 Electrolyte panel Jessica [...] Basic metabolic panel calcium total Salbador Howell [employer] WAREHOUSE MANAGER-PRODUCT GRADER Work Phone: Start: 09-20-2023 Blood typing serologic abo Salbador Howell TOBACCO WAREHOUSE MANAGER-PRODUCT GRADER Work Phone: Start: 09-20-2023 REPEATED ABORH Salbador Sc hroeder TOB[employer] WAREHOUSE MANAGER-PRODUCT GRADER Work Phone: Start: 09-20-2023 End: 09-20-2023 Gluc bld gluc mntr dev cleared fda spec home use Tanner Harris MD Work Phone: Start: 09-20-2023 Adult depression scr eening assessment [employer] Work Phone: Start: 09-20-2023 CLINICAL PATHOLOGY Vidh it Miguel DO Work Phone: Plan of Treatment Date [...] 10-18-2024 Urine screening for protein Urine Microalbumin [facility] Start: 10-05-2024 Adult BMI Screening Adult BMI Screening [facility] Start: 10-03-2024 Adult BMI Screening Adult BMI Screening [facility] Start: 09-20-2024 Depression Screening Depression Screening [facility] Start: 09-20-2024 Tobacco Screening Tobacco Screening [facility] Start: 01-31-2024 End: 01-31-2024 ambulatory Elon Louisa [facility] Start: 01-31-2024 End: 01-31-2024 Patient encounter procedure 01/31/2024 10:30 AM EDT Office Visit Jasmin Jasso Vigo [facility] - Medical Oncology [address] [place] [id number] Pablo Barnes MD [address] [place] [address] [address] [place] [address] Jasmin Jasso V[facility] Start: 01-10-2024 End: 01-10-2024 ambulatory [facility] Start: 01-10-2024 End: 01-10-2024 Patient encounter procedure 01/10/2024 11:30 AM EDT Office Visit [facility] [address] [address] [place] [id number] Mitra Crowell MD [address] [facility] [place] [address] [facility] Start: 12-20-2023 End: 12-20-2023 Patient encounter procedure 12/20/2023 2:00 PM EDT Appointment [facility] [address] [place] [id number] [facility] [facility] Start: 12-16-2023 End: 12-15-2024 MR Pelvis WO and W contrast IV MR pelvis with and without contrast Imaging STAT Rectal cancer ([facility]) Expected: 12/16/2023, Expires: 12/15/2024 [facility] Work Phone: Comment on above: Expected: 12/16/2023, Expires: Start: 11-29-2023 End: 11-29-2023 ambulatory Jasmin L [facility] - Medical Oncology Start: 11-29-2023 End: 11-29-2023 Patient encounter procedure 11/29/2023 2:30 PM EST Office Visit Jasmin L [facility] - Medical Oncology [address] [place] [address] Pablo Barnes MD [address] [facility] [address] [place] [id number] Jasmin L [facility] Medical Oncology Start: 11-28-2023 End: 11-28-2023 EXAM UNDER ANESTHESIA EXAM UNDER ANESTHESIA RECTAL MASS 11/28/2023 1:00 PM EST [facility] Start: 11-28-2023 End: 11-28-2023 Sigmoidoscopy flx dx w/collj spec br/wa if pfrmd FLEXIBLE SIGMOIDOSCOPY RECTAL MASS 11/28/2023 1:00 PM EST [facility] Start: 10-15-2023 End: 10-15-2023 ambulatory [facility] Start: 10-15-2023 End: 10-15-2023 Patient encounter procedure 10/15/2023 10:15 AM EST Office Visit [facility] [address] [place] [id number] Aldo Dudley MD [address] [place], [place] [id number] [facility] Start: 10-11-2023 End: 10-04-2024 Basic [...] 1975 Diabetic foot examination Diabetic Foot Exam [facility] Start: 1957 Glaucoma screening Diabetic Ophthalmology Exam [facility] Start: 1957 Medicare Annual Wellness Visit Medicare Annual Wellness Visit [facility] Start: 1957 Tobacco Counseling Tobacco Counseling [facility] Start: 1957 Urine screening for protein Urine Microalbumin [facility] End: 10-06-2023 Basic metabolic 2000 panel - [...] Phone: End: 12-24-2023 Hemoglobin and hematocrit, blood [facility] Hemoglobin and hematocrit, blood [facility] Work Phone: End: 10-06-2023 Magnesium [Mass/volume] in Serum or Plasma [facility] Oxygen Therapy - Sally ntain SpO2: 90%; *TYPING SECTION CHIEF Guidelines for O2: Yes; Document: \A123 [employer] [facility].org\epic\EPIC_Re ference\Orders\Respiratory Care Guidelines\CPG Oxygen 2020.pdf [facility] Work Phone: Oxygen Therapy - Sally ntain SpO2: 90%; *TYPING SECTION CHIEF Guidelines for O2: Yes; Document: \A123 Systemsi[employer] [facility].org\epic\EPIC_Re ference\Orders\Respiratory Care Guidelines\CPG Oxygen 2020.pdf [facility] Work Phone: End: 10-07-2023 Platelets [#/volume] in Blood [facility] Work Phone: Protime [facility] INR [facility] Work Phone: End: 12-23-2023 Troponin I.cardiac [Mass/volume] in Serum or Plasma [facility] End: 12-24-2023 Troponin I.cardiac [Mass/volume] in Serum or Plasma [facility] Work Phone: End: 12-25-2023 Type and screen(includes indirect aram) [facility] Work Phone: Immunizations Immunization Date Immunization Notes Care Provider Fa salas 10-14-2021 Influenza, injectabl e, Madin Elaina Canine Kidney, preservative free, quadrivalent [employer] Work Phone: [facility] 10-14-2021 influenza virus vaccine, unspecified formulation [employer] Work Phone: [facility] 07-31-2020 influenza, injectabl e, quadrivalent, contains preservative [facility] [facility] P[facility] Date Payer Category Payer Private Health Insurance [id number] 2022 Private Health Insurance [id number] 2022 Medicare [id number] 2022 Medicare [id number] 1957 Unknown [id number] 2.16.84 [id number] 1957 Unknown [id number] 2.16.84 [id number] 1957 Unknown [id number] 2.16.84 [id number] 1957 Unknown [id number] 2.16.84 [id number] 1957 Unknown [id number] 2.16.84 [id number] 1957 Unknown [id number] 2.16.84 [id number] 1957 Unknown [id number] 2.16.84 [id number] 1957 Unknown [id number] 2.16.84 [id number] 1957 Unknown [id number] 2.16.84 [id number] 1957 Unknown [id number] 2.16.84 [id number] 1957 Unknown [id number] 2.16.84 [id number] Social History Date Type Detail Facility Start: 09-20-2023 Tobacco smoking stat NHIS Occasional tobacco smoker [facility] History of tobacco use [facility] Start: 09-20-2023 Tobacco use and exposure Smokeless tobacco non-user [facility] Start: 09-20-2023 End: 12-23-2023 Alcohol intake Lifetime non-drinker (finding) [facility] Start: 11-10-2020 End: 09-30-2023 History of Social function [facility] Start: 11-10-2020 End: 09-30-2023 [facility] Has the [place], Infectious, or water company threatened to shut off services in your home in past 12Mo No [facility] How often to you hav e a drink containing alcohol? Never [facility] How many standard drinks containing alcohol do you have on a typical day? Patient does not drink [facility] Start: 09-20-2023 Tobacco Comment 2 cigarettes a day [facility] Start: 1955 Sex Assigned At Not on file [facility] Goals Date Patient Goal Desired Activity [...] progress towards goal: Clinical Notes 09-20-2023 to 03-04-2024 Discharge Planning Note - Crista Marcial RN - 12/28/2023 10:41 AM EDTDischarge Planning Note - Yumiko Suresh - 12/28/2023 10:15 AM EDTPlan of Care - Yareli Ny RN - 12/28/2023 7:50 AM EDT Note Date & Type Note Facility 03-04-2024 Note Subjective Patient ID: Harris Castrejon is a 68 y.o. female who presents for Consult (Harris is here for consult about rectal cancer). 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 During that hospitalization she had colostomy placement small bowel resection. She also had cardiac issues and was in the ICU for a while. During all of this time she had a scope which found a rectal mass and the biopsies came back as adenocarcinoma. The report was reviewed and the mass is very low-lying. On December 25, 2023 an MRI was done that showed a 4.2 cm T3 lesion that extended into the intersphincteric space. This report and image was also reviewed. It also shows a possible fistulous/sinus track to the sacral decubitus ulcer ration. She has been seen multiple times by another colorectal surgeon and heme-onc. They all have said that she is not a surgical candidate and that she is not a candidate for any type of chemoradiation. Currently today in my office she states that her decubitus ulcer is healing. She seems very alert and oriented though she is still living in an assisted living facility. She is wheelchair-bound. Review of Systems Constitutional: Positive for unexpected weight change. HENT: Negative. Eyes: Negative. Respiratory: Positive for shortness of breath. Cardiovascular: Positive for leg swelling. Gastrointestinal: Positive for blood in stool. Endocrine: Negative. Genitourinary: Negative. Musculoskeletal: Positive for arthralgias and back pain. Skin: Positive for wound. Allergic/Immunologic: Negative. Neurological: Negative. Hematological: Negative. Psychiatric/Behavioral: Negative. Objective Visit Vitals BP 95/72 (BP Location: Left arm, Patient Position: Sitting) Pulse 90 Temp 36.5 ???C (97.7 ???F) (Temporal) Physical Exam Constitutional: Appearance: She is obese. HENT: Head: Normocephalic and atraumatic. Nose: Nose normal. Cardiovascular: Rate and Rhythm: Normal rate. Pulmonary: Effort: Pulmonary effort is normal. Abdominal: Comments: protuberant Musculoskeletal: General: Swelling present. Cervical back: Normal range of motion. Comments: In wheelchair Skin: General: Skin is warm. Neurological: General: No focal deficit present. Mental Status: She is alert and oriented to person, place, and time. Psychiatric: Mood and Affect: Mood normal. Behavior: Behavior normal. Thought Content: Thought content normal. Judgment: Judgment normal. Assessment/Plan Diagnoses and all orders for this visit: Rectal cancer (CMS/HCC) Had a long discussion with patient and her Liborio. I told them I would present her at tumor board on Saturday and discuss if we can start some neoadjuvant chemoradiation at this time. The plan is to give him a call at [phone] after tumor board on Saturday. No diagnosis found. No orders of the defined types were placed in this encounter. No results found for this or any previous visit (from the past 36 hour(s)). No follow-ups on file. [facility] 02-12-2024 Note 2ND ATTEMPT, NO ANSW ER LMOM. ALSO RECEIVED MORE RECORDS FROM OFFICE, CALLED AND LEFT THE NURSES LINE A MESSAGE INFORMING THEM OF THIS. [facility] 02-12-2024 Note Received referral fo r rectal cancer, called patient to set up an appt with Dr. Sandhu, no answer LMOM to contact me directly to set up an appt. [facility] 12-28-2023 Miscellaneous Notes DISCHARGE PLANNING NOTE DC to [facility] today at 7pm Transport time changed to 7pm as facility cannot take her till then. [facility] faxed and DC packet prepared. RN given number to call report. Crista Marcial RN DISCHARGE PLANNING NOTE BLS transport to [facility] on 12/28/23 at 1500 hours via PTN. Spoke with Robert at [facility] Problem: Pain Goal: Patient goal is pain score less than 4, able to rest, and participant in treatment plan as appropriate Description: INTERVENTIONS: 1. Encourage patient or legal field representatives director to report early pain and ask for [...] per policy 9. Teach patient or legal field representatives director interventions for comforting Outcome: Progressing Note: Evaluation [...] at the bedside 7. Instruct patient/ patient field representatives director about use of safety devices 8. Include patient/ patient field representatives director in decisions related to safety Outcome: Progressing [...] hygiene technique 7. Identify and instruct patient/patient field representatives director in use of appropriate isolation precautions for identified infection/symptoms 8. Provide and discuss with patient/patient field representatives director on educational MDRO sheet 9. Encourage and monitor nutritional status daily and consult pt sitter if indicated 10. Implement neutropenic guidelines as [...] to monitor. Problem: Knowledge Deficit Goal: Patient/patient field representatives director demonstrates understanding of disease process, treatment plan, [...] be free from fall Description: Interventions: 1. [place] to environment 2. Hourly rounds addressing the [...] non-skid footwear 11. Teach patient and patient field representatives director to maintain environment for safety and engage [...] (cane, walker) within reach 19. Request patient field representatives director bring adaptive equipment/mobility aids from home or obtain and provide as needed 20. Consult pharmacy regarding effects of med's affecting mobility, cognition, and alternatives 21. Obtain physician order for PT if risk factors associated with mobility are present 22. Obtain physician order for OT as appropriate 23. Utilize diversional activities 24. Educate patient and patient field representatives director how to maintain a safe environment during visitation times (notify nurse prior to leaving bedside) 25. Consider appropriateness of medical or non-medical staff assistant 26. Set up voiding schedule as appropriate [...] Description: INTERVENTIONS: 1. Encourage patient or legal field representatives director to report early pain and ask for [...] per policy 9. Teach patient or legal field representatives director interventions for comforting Note: Evaluation of progress [...] at the bedside 7. Instruct patient/ patient field representatives director about use of safety devices 8. Include patient/ patient field representatives director in decisions related to safety Note: Evaluation [...] hygiene technique 7. Identify and instruct patient/patient field representatives director in use of appropriate isolation precautions for identified infection/symptoms 8. Provide and discuss with patient/patient field representatives director on educational MDRO sheet 9. Encourage and monitor nutritional status daily and consult pt sitter if indicated 10. Implement neutropenic guidelines as [...] worsening infection. Problem: Knowledge Deficit Goal: Patient/patient field representatives director demonstrates understanding of disease process, treatment plan, [...] that time. Will continue to follow Lucy duke again Dr. Carrillo! I attached Kelli the [...] Description: INTERVENTIONS: 1. Encourage patient or legal field representatives director to report early pain and ask for [...] per policy 9. Teach patient or legal field representatives director interventions for comforting Outcome: Progressing Note: Evaluation [...] at the bedside 7. Instruct patient/ patient field representatives director about use of safety devices 8. Include patient/ patient field representatives director in decisions related to safety Outcome: Progressing [...] hygiene technique 7. Identify and instruct patient/patient field representatives director in use of appropriate isolation precautions for identified infection/symptoms 8. Provide and discuss with patient/patient field representatives director on educational MDRO sheet 9. Encourage and monitor nutritional status daily and consult pt sitter if indicated 10. Implement neutropenic guidelines as needed 11. Review exposure to history of communicable disease and recent travel history on admission 12. Encourage annual influenza vaccine 13. Encourage pneumonia vaccine Outcome: Progressing Note: Evaluation of progress towards goal: Patient will remain afebrile during hospital stay. Patient WBC count will remain within normal limits. Will continue to monitor. Problem: Knowledge Deficit Goal: Patient/patient field representatives director demonstrates understanding of disease process, treatment plan, [...] Score of =/> 25 or indicated by [facility] Assessment Goal: Patient should be free from fall Description: Interventions: 1. [place] to environment 2. Hourly rounds addressing the [...] non-skid footwear 11. Teach patient and patient field representatives director to maintain environment for safety and engage [...] (cane, walker) within reach 19. Request patient field representatives director bring adaptive equipment/mobility aids from home or obtain and provide as needed 20. Consult pharmacy regarding effects of med's affecting mobility, cognition, and alternatives 21. Obtain physician order for PT if risk factors associated with mobility are present 22. Obtain physician order for OT as appropriate 23. Utilize diversional activities 24. Educate patient and patient field representatives director how to maintain a safe environment during visitation times (notify nurse prior to leaving bedside) 25. Consider appropriateness of medical or non-medical staff assistant 26. Set up voiding schedule as appropriate [...] on patient's door 9. Provide patient/ patient field representatives director with isolation education. Outcome: Progressing Note: Evaluation [...] supplement as ordered 13. Collaborate with clinical pt sitter 14. Include patient/ patient's field representatives director in decisions related to nutrition Outcome: Not Progressing Note: Evaluation of progress towards goal: poor intake Problem: Pain Goal: Patient goal is pain score less than 4, able to rest, and participant in treatment plan as appropriate Description: INTERVENTIONS: 1. Encourage patient or legal field representatives director to report early pain and ask for [...] per policy 9. Teach patient or legal field representatives director interventions for comforting Outcome: Progressing Note: Evaluation [...] at the bedside 7. Instruct patient/ patient field representatives director about use of safety devices 8. Include patient/ patient field representatives director in decisions related to safety Outcome: Progressing [...] hygiene technique 7. Identify and instruct patient/patient field representatives director in use of appropriate isolation precautions for identified infection/symptoms 8. Provide and discuss with patient/patient field representatives director on educational MDRO sheet 9. Encourage and monitor nutritional status daily and consult pt sitter if indicated 10. Implement neutropenic guidelines as needed 11. Review exposure to history of communicable disease and recent travel history on admission 12. Encourage annual influenza vaccine 13. Encourage pneumonia vaccine Outcome: Progressing Note: Evaluation of progress towards goal: Monitor for s/sx of infection, treat per orders. Problem: Knowledge Deficit Goal: Patient/patient field representatives director demonstrates understanding of disease process, treatment plan, [...] discharge planning process 5. Communicate referral to patient educator as appropriate 6. Communicate referral to pt sitter as appropriate 7. Collaborate with case management/social worker for discharge needs Outcome: Progressing Note: [...] be free from fall Description: Interventions: 1. [place] to environment 2. Hourly rounds addressing the [...] non-skid footwear 11. Teach patient and patient field representatives director to maintain environment for safety and engage [...] (cane, walker) within reach 19. Request patient field representatives director bring adaptive equipment/mobility aids from home or obtain and provide as needed 20. Consult pharmacy regarding effects of med's affecting mobility, cognition, and alternatives 21. Obtain physician order for PT if risk factors associated with mobility are present 22. Obtain physician order for OT as appropriate 23. Utilize diversional activities 24. Educate patient and patient field representatives director how to maintain a safe environment during visitation times (notify nurse prior to leaving bedside) 25. Consider appropriateness of medical or non-medical staff assistant 26. Set up voiding schedule as appropriate [...] Handoff to next level of care provider (live in caregiver, PCP, home care). 5. Complete follow up [...] on patient's door 9. Provide patient/ patient field representatives director with isolation education. Outcome: Progressing Note: Evaluation of progress towards goal: Antibiotic per order administer per mar, watch for further s/sx of infection. Enterostomal [...] vac as soon as possible. Mayra Rouse DNP,TOBACCO WAREHOUSE MANAGER, [facility] Pager #[phone] Sat-Sat 8a-4:00p [phone] Mayra Ruose APRN-ALINA 12/26/23 1510 DISCHARGE PLANNING NOTE Case discussed [...] Description: INTERVENTIONS: 1. Encourage patient or legal field representatives director to report early pain and ask for [...] per policy 9. Teach patient or legal field representatives director interventions for comforting Outcome: Progressing Note: Evaluation [...] at the bedside 7. Instruct patient/ patient field representatives director about use of safety devices 8. Include patient/ patient field representatives director in decisions related to safety Outcome: Progressing Note: Evaluation of progress towards goal: Patient remains free of falls and injury this shift. [facility] NIGHT Patient's hemoglobin has continued to trend down, most recent 6.8. Esl Instructor obtained verbal consent for blood transfusion over [...] at the bedside 7. Instruct patient/ patient field representatives director about use of safety devices 8. Include patient/ patient field representatives director in decisions related to safety Outcome: Progressing [...] - Unknown Thank you, BRIGID Oden Clinical Software Developer Mid Level Clinical Documentation Integrity Email: [email or web address] The Clinical Documentation Integrity (CDI) staff are [...] determine - Unknown Thank you, Tara Lantigua [facility] Clinical Software Developer Mid Level Clinical Documentation Integrity Email: [email or web address] The Clinical Documentation Integrity (CDI) staff are working remotely. If you have any questions or concerns regarding this query, please feel free to call or send via e-mail. The patient's Clinical Indicators include: See Query CDI RESPONSE TEXT: Clinically unable to determine. Query created by: Tara Lantigua on 12/25/2023 9:42 AM Electronically signed by: Radha Villagomez MD 12/25/2023 11:46 AM Esl Instructor spoke with Dr. De Paz with Nephrology. [...] Description: INTERVENTIONS: 1. Encourage patient or legal field representatives director to report early pain and ask for [...] per policy 9. Teach patient or legal field representatives director interventions for comforting Outcome: Progressing Note: Evaluation [...] at the bedside 7. Instruct patient/ patient field representatives director about use of safety devices 8. Include patient/ patient field representatives director in decisions related to safety Outcome: Progressing [...] hygiene technique 7. Identify and instruct patient/patient field representatives director in use of appropriate isolation precautions for identified infection/symptoms 8. Provide and discuss with patient/patient field representatives director on educational MDRO sheet 9. Encourage and monitor nutritional status daily and consult pt sitter if indicated 10. Implement neutropenic guidelines as needed 11. Review exposure to history of communicable disease and recent travel history on admission 12. Encourage annual influenza vaccine 13. Encourage pneumonia vaccine Outcome: Progressing Note: Evaluation of progress towards goal: Afebrile, labs and VS monitored Problem: Knowledge Deficit Goal: Patient/patient field representatives director demonstrates understanding of disease process, treatment plan, [...] be free from fall Description: Interventions: 1. [place] to environment 2. Hourly rounds addressing the [...] non-skid footwear 11. Teach patient and patient field representatives director to maintain environment for safety and engage [...] (cane, walker) within reach 19. Request patient field representatives director bring adaptive equipment/mobility aids from home or obtain and provide as needed 20. Consult pharmacy regarding effects of med's affecting mobility, cognition, and alternatives 21. Obtain physician order for PT if risk factors associated with mobility are present 22. Obtain physician order for OT as appropriate 23. Utilize diversional activities 24. Educate patient and patient field representatives director how to maintain a safe environment during visitation times (notify nurse prior to leaving bedside) 25. Consider appropriateness of medical or non-medical staff assistant 26. Set up voiding schedule as appropriate [...] Description: INTERVENTIONS: 1. Encourage patient or legal field representatives director to report early pain and ask for [...] per policy 9. Teach patient or legal field representatives director interventions for comforting Outcome: Progressing Note: Evaluation [...] at the bedside 7. Instruct patient/ patient field representatives director about use of safety devices 8. Include patient/ patient field representatives director in decisions related to safety Outcome: Progressing [...] hygiene technique 7. Identify and instruct patient/patient field representatives director in use of appropriate isolation precautions for identified infection/symptoms 8. Provide and discuss with patient/patient field representatives director on educational MDRO sheet 9. Encourage and monitor nutritional status daily and consult pt sitter if indicated 10. Implement neutropenic guidelines as needed 11. Review exposure to history of communicable disease and recent travel history on admission 12. Encourage annual influenza vaccine 13. Encourage pneumonia vaccine Outcome: Progressing Note: Evaluation of progress towards goal: Pt continuing IV antibiotics Problem: Knowledge Deficit Goal: Patient/patient field representatives director demonstrates understanding of disease process, treatment plan, [...] Score of =/> 25 or indicated by [facility] Assessment Goal: Patient should be free from fall Description: Interventions: 1. [place] to environment 2. Hourly rounds addressing the [...] non-skid footwear 11. Teach patient and patient field representatives director to maintain environment for safety and engage [...] (cane, walker) within reach 19. Request patient field representatives director bring adaptive equipment/mobility aids from home or obtain and provide as needed 20. Consult pharmacy regarding effects of med's affecting mobility, cognition, and alternatives 21. Obtain physician order for PT if risk factors associated with mobility are present 22. Obtain physician order for OT as appropriate 23. Utilize diversional activities 24. Educate patient and patient field representatives director how to maintain a safe environment during visitation times (notify nurse prior to leaving bedside) 25. Consider appropriateness of medical or non-medical staff assistant 26. Set up voiding schedule as appropriate [...] been trying to transfer his back to [facility] for the past 2 days but he has not been able successful with that. I advised the that if he iss not satisfied with the patient's healthcare here we can help him with transferring to another facility, unlikely [facility] would be an appropriate health care facility given the patient's current health status given her sepsis, AFib with RVR and elevated troponin. Encouraged the to talk to [facility] about why the patient was transferred to the [facility] in the 1st place. The hung up the phone without further discussion. DISCHARGE PLANNING NOTE Case discussed in daily transition rounds and chart reviewed by CN. Barriers to discharge include IV abx, cultures pending, monitoring HR, Heparin gtt, monitoring/replacing electrolytes, ID consult, Med-Onc consult Discharge Plan remains: return to [facility]. Referral sent. CN will continue to follow and is available should any further needs arise. - Anel Brown RN 12/24/23 10:03 AM Problem: Pain Goal: Patient goal is pain score less than 4, able to rest, and participant in treatment plan as appropriate Description: INTERVENTIONS: 1. Encourage patient or legal field representatives director to report early pain and ask for [...] per policy 9. Teach patient or legal field representatives director interventions for comforting Note: Evaluation of progress [...] at the bedside 7. Instruct patient/ patient field representatives director about use of safety devices 8. Include patient/ patient field representatives director in decisions related to safety Note: Evaluation [...] hygiene technique 7. Identify and instruct patient/patient field representatives director in use of appropriate isolation precautions for identified infection/symptoms 8. Provide and discuss with patient/patient field representatives director on educational MDRO sheet 9. Encourage and monitor nutritional status daily and consult pt sitter if indicated 10. Implement neutropenic guidelines as [...] worsening infection. Problem: Knowledge Deficit Goal: Patient/patient field representatives director demonstrates understanding of disease process, treatment plan, [...] was transported yesterday to the ED, from [facility] facility. As per report, patient went to [...] against me, saying [place] [employer] [place] . He also said that he [...] ANTONIO MD, PGY-2, DEPARTMENT OF INTERNAL MEDICINE, [place], [place]. Associated attestation - Radha Villagomez MD [...] ANTONIO MD, PGY-2, DEPARTMENT OF INTERNAL MEDICINE, [place], [place]. Associated attestation - Radha Villagomez MD [...] Description: INTERVENTIONS: 1. Encourage patient or legal field representatives director to report early pain and ask for [...] per policy 9. Teach patient or legal field representatives director interventions for comforting Outcome: Progressing Note: Evaluation [...] at the bedside 7. Instruct patient/ patient field representatives director about use of safety devices 8. Include patient/ patient field representatives director in decisions related to safety Outcome: Progressing [...] hygiene technique 7. Identify and instruct patient/patient field representatives director in use of appropriate isolation precautions for identified infection/symptoms 8. Provide and discuss with patient/patient field representatives director on educational MDRO sheet 9. Encourage and monitor nutritional status daily and consult pt sitter if indicated 10. Implement neutropenic guidelines as [...] infection prevention. Problem: Knowledge Deficit Goal: Patient/patient field representatives director demonstrates understanding of disease process, treatment plan, [...] discharge planning process 5. Communicate referral to patient educator as appropriate 6. Communicate referral to pt sitter as appropriate 7. Collaborate with case management/social worker for discharge needs Outcome: Progressing Note: [...] supplement as ordered 13. Collaborate with clinical pt sitter 14. Include patient/ patient's field representatives director in decisions related to nutrition Outcome: Progressing [...] be free from fall Description: Interventions: 1. [place] to environment 2. Hourly rounds addressing the [...] non-skid footwear 11. Teach patient and patient field representatives director to maintain environment for safety and engage [...] (cane, walker) within reach 19. Request patient field representatives director bring adaptive equipment/mobility aids from home or obtain and provide as needed 20. Consult pharmacy regarding effects of med's affecting mobility, cognition, and alternatives 21. Obtain physician order for PT if risk factors associated with mobility are present 22. Obtain physician order for OT as appropriate 23. Utilize diversional activities 24. Educate patient and patient field representatives director how to maintain a safe environment during visitation times (notify nurse prior to leaving bedside) 25. Consider appropriateness of medical or non-medical staff assistant 26. Set up voiding schedule as appropriate [...] Handoff to next level of care provider (live in caregiver, PCP, home care). 5. Complete follow up [...] role, verbalized understanding. Patient is from [facility] for about a week she tells me and she would like to return to there. Tasked referral to return to [facility]. Problem: Pain Goal: Patient goal is pain score less than 4, able to rest, and participant in treatment plan as appropriate Description: INTERVENTIONS: 1. Encourage patient or legal field representatives director to report early pain and ask for [...] per policy 9. Teach patient or legal field representatives director interventions for comforting Outcome: Progressing Note: Evaluation [...] at the bedside 7. Instruct patient/ patient field representatives director about use of safety devices 8. Include patient/ patient field representatives director in decisions related to safety Outcome: Progressing [...] hygiene technique 7. Identify and instruct patient/patient field representatives director in use of appropriate isolation precautions for identified infection/symptoms 8. Provide and discuss with patient/patient field representatives director on educational MDRO sheet 9. Encourage and monitor nutritional status daily and consult pt sitter if indicated 10. Implement neutropenic guidelines as needed 11. Review exposure to history of communicable disease and recent travel history on admission 12. Encourage annual influenza vaccine 13. Encourage pneumonia vaccine Outcome: Progressing Note: Evaluation of progress towards goal: Patient will remain afebrile during hospital stay. Patient WBC count will remain within normal limits. Will continue to monitor. Problem: Knowledge Deficit Goal: Patient/patient field representatives director demonstrates understanding of disease process, treatment plan, [...] be free from fall Description: Interventions: 1. [place] to environment 2. Hourly rounds addressing the [...] non-skid footwear 11. Teach patient and patient field representatives director to maintain environment for safety and engage [...] (cane, walker) within reach 19. Request patient field representatives director bring adaptive equipment/mobility aids from home or obtain and provide as needed 20. Consult pharmacy regarding effects of med's affecting mobility, cognition, and alternatives 21. Obtain physician order for PT if risk factors associated with mobility are present 22. Obtain physician order for OT as appropriate 23. Utilize diversional activities 24. Educate patient and patient field representatives director how to maintain a safe environment during visitation times (notify nurse prior to leaving bedside) 25. Consider appropriateness of medical or non-medical staff assistant 26. Set up voiding schedule as appropriate [...] from the original note were not included. 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[facility]) 10/21/2023 Resolved Problems Diagnosis Date Noted Date Resolved Septic shock ([facility]) 12/22/2023 12/28/2023 CONSULTANTS: Consulting Providers Provider Service Specialty Academic Adult Pulmonary Consult Service Tt Only -- Pulmonary Medicine MD Wendy Patel Internal Medicine Hematology Ip Wound Care Services (Inpatient Only) -- Wound Care Eduardo Wolff MD Cardiology Cardiology MD Wendy Salazar Radiation Oncology Radiation Oncology Surgery B (Tth Only) -- General Surgery PROCEDURES: Things needing [...] discussed MRI findings with primary care Oncology battery container tester aluminum and they are not recommending any inpatient [...] a stable condition. Instructions were sent to [facility] to start wound VAC treatment to her [...] that she is being discharged back to [facility] and they were both in agreement with the plan. The informed me that he wasn't happy with the fact she got admitted to [facility] in the first place. Discharge Medications: Medication [...] total) by mouth in the morning. fat bvks-akc-rwf-oliv-fish oil (SMOFLIPID) 20 % emulsion infusion Infuse [...] diet Regular Texture Adult diet Laisha Felix, TOBACCO WAREHOUSE MANAGER-PRODUCT GRADER [address], [address] [address] Follow up in 2 week(s) Pablo Barnes MD [address] [facility] [address] Follow up Carol Akins PA-C [address] [facility] [id number] Justin Condon MD [address] [facility] Pulmonary [facility] [id number] Schedule an appointment as soon as possible [...] questions. Electronically signed by: BRANDON CARRILLO MD [facility], Department of Internal Medicine 12/28/23 10:27 AM documented in this encounter [facility] [employer] [facility] 12-28-2023 History of Present illness Narrative Images [...] 3 completed shifts: In: 1907 [I.V.:1907] Out: 242 [Urine:2100; Stool:325] Intake/Output this shift: No intake/output [...] Resident, PGY-2 Colorectal Surgery 6a-6p pager # [phone] 6p-6a pager #[phone] Associated attestation - Conor Gomez MD - 12/28/2023 9:28 AM EDT Attending Attestation: I saw the patient. I performed the critical/greenberg portions of the service. I was directly involved in the management and treatment plan of the patient. I reviewed the resident's note. Additional Notes/Findings: MRI performed. Patient irritated but no specific complaints. MRI pending Images from the original note were not included. [facility] Gurpreet Nagy M.D. Racquel Langston M.D. Sonya Ruelas M.D. Sunni Stack M.D. Tara Funes, TOBACCO WAREHOUSE MANAGER-[facility] Keron Stahl, TOBACCO WAREHOUSE MANAGER-PRODUCT GRADER Tiffanie Segal, TOBACCO WAREHOUSE MANAGER-[facility] Rufina Dowd, TOBACCO WAREHOUSE MANAGER-[facility] JUAN Brown M.D. Tc Ridley M.D. Reinaldo Felder M.D. Alfred Adams M.D. Carole Gaviria, TOBACCO WAREHOUSE MANAGER-PRODUCT GRADER Jenny Calhoun, TOBACCO WAREHOUSE MANAGER-PRODUCT GRADER Yeny Medrano, TOBACCO WAREHOUSE [facility] Mendy Rodrigues, TOBACCO WAREHOUSE MANAGER[facility] PROGRESS NOTE Subjective: [...] 125 mL, intravenous, Once in imaging, Salbador Dutton, levalbuterol (XOPENEX) nebulizer solution 1.25 mg, 1.25 [...] 5 mg, intravenous, Q6H PRN, Zayra Seals, DOLORES-PRODUCT GRADER, 5 mg at 12/23/23 1531 metoprolol tartrate [...] membrane of both ears Typical atrial flutter ([facility]) Coronary artery disease involving [place] coronary artery of [place] heart without angina pectoris Tachycardia induced cardiomyopathy ([facility]) Type 2 diabetes mellitus with circulatory disorder, without long-term current use of insulin ([facility]) Other hyperlipidemia Paroxysmal atrial fibrillation ([facility]) BRANDEE (acute kidney injury) ([facility]) Hyperkalemia Bilateral lower extremity edema Systolic and diastolic CHF, acute ([facility]) Acute kidney injury ([facility]) Acute UTI (urinary tract infection) Skin ulcer of sacrum ([facility]) Altered mental status Hypokalemia CKD (chronic kidney disease) stage 4, GFR 15-29 ml/min ([facility]) Bacteremia Respiratory distress Myoclonus Pressure injury of [...] further rehabilitation. She'll follow up with Dr. Miesha barber to continue treatment discussions. Oncology will sign off. Please contact us with questions. Code Status: Full Code Further medical management of comorbid conditions per primary team and consulting services, appreciate assistance The patient was seen and examined and all plans and orders were agreed upon with the physician on service today, Dr. Felder. Keron Stahl, TOBACCO WAREHOUSE MANAGER-PRODUCT GRADER [facility] [address] [place] [id number] [employer] is my preferred mode of contact. For after hours (evening, weekends, holidays) Hematology Oncology needs, please call the battery container tester aluminum service [phone]. Please ask for the MD battery container tester aluminum. December 28, 2023, 7:20 AM I, Reinaldo Felder MD, personally performed the face to face diagnostic evaluation on this patient. I have reviewed the CHALINO's History, Exam, and MDM and agree with the assessment and plan as written. Images from the original note were not included. [facility] Progress Note 12/27/2023 Patient Name: [...] L5 Obesity Respiratory distress 10/19/2023 Septic shock (CMS-HCC) 12/22/2023 Systolic and diastolic CHF, acute ([facility]) 09/03/2023 Visual impairment Past Surgical History: Procedure Laterality Date APPLICATION WOUND VAC N/A 11/07/2023 Performed by Mitra Crowell MD at [facility] Cardiac catheterization 02/16/2021 Performed by Kelli Su MD at [facility] CARDIAC CATH LABS Caval Tricuspid Isthmus RFA, Carto w/ICE N/A 03/21/2021 Performed by Lurdes Weinberg MD at [facility] HR (EP) COLONOSCOPY POLYPECTOMY N/A 10/23/2023 Performed by Soy Talamantes MD at [facility] Coronary angiogram and left ventricular gram/pressure N/A 02/16/2021 Performed by Kelli Su MD at [facility] CARDIAC CATH LABS Coronary fractional flow reserve N/A 02/16/2021 Performed by Kelli Su MD at [facility] CARDIAC CATH LABS CREATION OF END COLOSTOMY N/A 11/07/2023 Performed by Mitra Crowell MD at [facility] ESOPHAGOGASTRODUODENOSCOPY DIAGNOSTIC N/A 10/23/2023 Performed by Soy Talamantes MD at [facility] EXAM UNDER ANESTHESIA WITH BRECTAL BIOPSY N/A 11/28/2023 Performed by Mitra Crowell MD at [facility] EXAM UNDER ANESTHESIA/RECTAL MASS BIOPSY N/A 10/25/2023 Performed by Mitra Crowell MD at [facility] FLEXIBLE SIGMOIDOSCOPY N/A 10/25/2023 Performed by Mitra Crowell MD at [facility] FLEXIBLE SIGMOIDOSCOPY WITH BIOPSY N/A 11/28/2023 Performed by Mitra Crowell MD at [facility] INSCISIONAL DEBRIDEMENT SACRUM N/A 10/20/2023 Performed by Magdi Matthew MD at [facility] INSERT ARTERIAL LINE 11/05/2023 INSERT ARTERIAL LINE 11/07/2023 Intravascular pressure measurement first vessel each additional vessel (fractional flow reserve) N/A 02/16/2021 Performed by Kelli Su MD at [facility] CARDIAC CATH LABS INTUBATION 11/07/2023 LAPAROTOMY EXPLORATORY N/A 11/07/2023 Performed by Mitra Crowell MD at [facility] MYRINGOTOMY W/ TUBES RESECTION BOWEL SMALL N/A 11/07/2023 Performed by Mitra Crowell MD at [facility] TONSILLECTOMY OBJECTIVE Vital Signs: Temp: [36.5 C [...] Value Units Date/Time Resp Pathogens Panel/SARS CoV-2 [[id number]] Collected: 12/25/23 1158 Specimen: Nasopharynx Updated: 12/25/23 [...] SARS COV 2 Not Detected Urine culture [[id number]] (Abnormal) (Susceptibility) Collected: 12/22/23 1326 Specimen: Urine [...] Susceptible Wound culture superficial includes gram stain [[id number]] (Abnormal) (Susceptibility) Collected: 12/22/23 1231 Specimen: Wound [...] RESISTANCE TO CLINDAMYCIN DETECTED [2] CLIA ID [id number] Blood Culture [[id number]] Collected: 12/22/23 1218 Specimen: Blood Updated: 12/27/23 1310 Culture NO GROWTH 5 DAYS Blood Culture [[id number]] Collected: 12/22/23 121 Specimen: Blood Updated: 12/27/23 [...] Problems Diagnosis Date Noted Adenocarcinoma of rectum ([facility]) 12/24/2023 Septic shock ([facility]) 12/22/2023 Pressure injury of sacral region, stage 4 ([facility]) 10/21/2023 Resolved Problems No resolved problems to display. - Atrial fibrillation with RVR- rate is controlled now - Hx of atypical flutter s/p ablation 02/2022 - Elevated troponin: - Hx of non obstructive CAD on [facility] 2020: - Chronic CHF with improved EF (40-45%): - No chest pain. EKG shows diffuse ST segment depression ( old). [id number] score: 5 S/p intermittent doses of digoxin. [...] from the original note were not included. [facility] [address] [place] [address] PROGRESS NOTE Harris Castrejon resting in bed. [...] Appropriate mood ASSESSMENT/PLAN Persistent AF with RVR [id number] = 5 Not on AC due to [...] tachy mediated cardiomyopathy. Atherosclerotic heart disease of [place] arteries without angina: Moderate disease 01/2021. Chronic [...] once heart rate better controlled. Tian Reddy, DOLORES-PRODUCT GRADER [facility] I, MAEGAN SINHA MD, I have reviewed and edited the CHALINO's History, Exam, and MDM and agree with the assessment and plan as written. -persistent atrial fibrillation with RVR: [id number] score at least 5. Not on anticoagulation [...] tachy mediated cardiomyopathy. 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 -chronic [...] This note was completed using a voice biodiesel production technician system. Every effort was made to ensure accuracy. However, inadvertent computerized biodiesel production technician errors may be present. Images from the original note were not included. [facility] [place] [address] PROGRESS NOTE Harris Castrejon Patient resting in [...] below the diaphragm and out of the [id number]. Stable position of the right PICC in right central venous catheter. The trachea is midline. Stable cardiomegaly. Improving pulmonary vascular congestion and bibasilar opacities. Probable residual retrocardiac opacities. No pneumothorax. IMPRESSION: * Improving pulmonary vascular congestion and pleural effusions. * Persistent retrocardiac opacity, likely residual small pleural effusion or atelectasis. Approved by Resident Luly Kim MD on 11/11/2023 4:46 AM IKrystal MD have personally reviewed the image(s) and [...] Chronic hypotension. -persistent atrial fibrillation with RVR: [id number] score at least 5. Not on anticoagulation [...] tachy mediated cardiomyopathy. 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 -chronic [...] This note was completed using a voice biodiesel production technician system. Every effort was made to ensure accuracy. However, inadvertent computerized biodiesel production technician errors may be present. Images from the original note were not included. Division of Infectious Diseases - Progress Note Team 1 Please contact us via [email or web address] chat. After hours, call [phone] Patient name: Harris Castrejon Patient Today's Date [...] Value Units Date/Time Resp Pathogens Panel/SARS CoV-2 [[id number]] Collected: 12/25/23 1158 Specimen: Nasopharynx Updated: 12/25/23 [...] SARS COV 2 Not Detected Urine culture [[id number]] (Abnormal) (Susceptibility) Collected: 12/22/23 1326 Specimen: Urine [...] Susceptible Wound culture superficial includes gram stain [[id number]] (Abnormal) (Susceptibility) Collected: 12/22/23 1231 Specimen: Wound [...] RESISTANCE TO CLINDAMYCIN DETECTED [2] CLIA ID [id number] Blood Culture [[id number]] Collected: 12/22/23 121 Specimen: Blood Updated: 12/25/23 130 Culture NO GROWTH 3 DAYS Blood Culture [[id number]] Collected: 12/22/23 1218 Specimen: Blood Updated: 12/25/23 [...] progress note was completed using a voice biodiesel production technician system. Every effort was made to ensure accuracy; however, inadvertent computerized biodiesel production technician errors may be present. Thank you for allowing us to participate in the care of this patient. - ROBERT GARCÍA MD 12/26/23 12:04 PM [facility] Infectious Diseases Please contact us via [email or web address] chat Images from the original note were not included. [facility] Progress Note 12/26/2023 Patient Name: Harris Castrejon : 1955 Hospital Day: 5 SUBJECTIVE Follow-up for abdominal pain. The patient seen and examined. No acute events over night. No fevers or chills. Tolerating diet. Past Medical History: Diagnosis Date Arrhythmia Hypertension Injury of back Disc L4 and L5 Obesity Respiratory distress 10/19/2023 Septic shock ([facility]) 12/22/2023 Systolic and diastolic CHF, acute ([facility]) 09/03/2023 Visual impairment Past Surgical History: Procedure Laterality Date APPLICATION WOUND VAC N/A 11/07/2023 Performed by Mitra Crowell MD at [facility] Cardiac catheterization 02/16/2021 Performed by Kelli Su MD at [facility] CARDIAC CATH LABS Caval Tricuspid Isthmus RFA, Carto w/ICE N/A 03/21/2021 Performed by Lurdes Weinberg MD at [facility] () COLONOSCOPY POLYPECTOMY N/A 10/23/2023 Performed by Soy Talamantes MD at [facility] Coronary angiogram and left ventricular gram/pressure N/A 02/16/2021 Performed by Kelli Su MD at [facility] C[facility]ATH [facility] Coronary fractional flow reserve N/A 02/16/2021 Performed by Kelli Su MD at [facility] CREATION OF END COLOSTOMY N/A 11/07/2023 Performed by Mitra Crowell MD at [facility] ESOPHAGOGASTRODUODENOSCOPY DIAGNOSTIC N/A 10/23/2023 Performed by Soy Talamantes MD at [facility] EXAM UNDER ANESTHESIA WITH BRECTAL BIOPSY N/A 11/28/2023 Performed by Mitra Crowell MD at [facility] EXAM UNDER ANESTHESIA/RECTAL MASS BIOPSY N/A 10/25/2023 Performed by Mitra Crowell MD at [facility] FLEXIBLE SIGMOIDOSCOPY N/A 10/25/2023 Performed by Mitra Crowell MD at [facility] FLEXIBLE SIGMOIDOSCOPY WITH BIOPSY N/A 11/28/2023 Performed by Mitra Crowell MD at [facility] INSCISIONAL DEBRIDEMENT SACRUM N/A 10/20/2023 Performed by Magdi Matthew MD at [facility] INSERT ARTERIAL LINE 11/05/2023 INSERT ARTERIAL LINE 11/07/2023 Intravascular pressure measurement first vessel each additional vessel (fractional flow reserve) N/A 02/16/2021 Performed by Kelli Su MD at [facility] INTUBATION 11/07/2023 LAPAROTOMY EXPLORATORY N/A 11/07/2023 Performed by Mitra Crowell MD at [facility] MYRINGOTOMY W/ TUBES RESECTION BOWEL SMALL N/A 11/07/2023 Performed by Mitra Crowell MD at [facility] TONSILLECTOMY OBJECTIVE Vital Signs: Temp: [36.5 C [...] Result Value Ref Range Blood component type [id number] Unit number [id number] Unit ABO O Unit RH POS Crossmatch Compatible Status of unit TRANSFUSED Expiration Date [id number] BB Type Barcode 5100 Hemoglobin and hematocrit, [...] Value Units Date/Time Resp Pathogens Panel/SARS CoV-2 [[id number]] Collected: 12/25/23 1158 Specimen: Nasopharynx Updated: 12/25/23 [...] SARS COV 2 Not Detected Urine culture [[id number]] (Abnormal) (Susceptibility) Collected: 12/22/23 1326 Specimen: Urine [...] Susceptible Wound culture superficial includes gram stain [[id number]] (Abnormal) (Susceptibility) Collected: 12/22/23 1231 Specimen: Wound [...] RESISTANCE TO CLINDAMYCIN DETECTED [2] CLIA ID [id number] Blood Culture [[id number]] Collected: 12/22/23 1218 Specimen: Blood Updated: 12/26/23 1303 Culture NO GROWTH 4 DAYS Blood Culture [[id number]] Collected: 12/22/23 1218 Specimen: Blood Updated: 12/26/23 1303 Culture [...] Problems Diagnosis Date Noted Adenocarcinoma of rectum ([facility]) 12/24/2023 Septic shock ([facility]) 12/22/2023 Pressure injury of sacral region, stage 4 ([facility]) 10/21/2023 Resolved Problems No resolved problems to display. - Atrial fibrillation with RVR- rate is controlled now - Hx of atypical flutter s/p ablation 02/2022 - Elevated troponin: - Hx of non obstructive CAD on [facility] 2020: - Chronic CHF with improved EF (40-45%): - No chest pain. EKG shows diffuse ST segment depression ( old). [id number] score: 5 S/p intermittent doses of digoxin. [...] Resident, PGY-1 Colorectal Surgery 6a-6p pager # [phone] 6p-6a pager #[phone] Associated attestation - Mitra Crowell MD - [...] Note Team 1 Please contact us via [email or web address] chat. After hours, call [phone] Patient name: Hraris Castrejon Patient Today's Date and Time: 12/25/2023, [...] pannus Abdominal wound is superficial and looks furnace cleaner Buttock wound is large deep to [...] Value Units Date/Time Resp Pathogens Panel/SARS CoV-2 [[id number]] Collected: 12/25/23 1158 Specimen: Nasopharynx Updated: 12/25/23 [...] SARS COV 2 Not Detected Urine culture [[id number]] (Abnormal) Collected: 12/22/23 1326 Specimen: Urine from [...] PROGRESS Wound culture superficial includes gram stain [[id number]] (Abnormal) (Susceptibility) Collected: 12/22/23 1231 Specimen: Wound [...] RESISTANCE TO CLINDAMYCIN DETECTED [2] CLIA ID [id number] Blood Culture [[id number]] Collected: 12/22/231217 Specimen: Blood Updated: 12/25/23 130 Culture NO GROWTH 3 DAYS Blood Culture [[id number]] Collected: 12/22/231217 Specimen: Blood Updated: 12/25/23 1303 Culture NO [...] progress note was completed using a voice biodiesel production technician system. Every effort was made to ensure accuracy; however, inadvertent computerized biodiesel production technician errors may be present. Thank you for allowing us to participate in the care of this patient. - ROBERT GARCÍA MD 12/25/23 6:13 PM [facility] Infectious Diseases Please contact us via [email or web address] chat Images from the original note were not included. [facility] Hospitalists Progress Note 12/25/2023 Patient Name: [...] L5 Obesity Respiratory distress 10/19/2023 Septic shock ([facility]) 12/22/2023 Systolic and diastolic CHF, acute ([facility]) 09/03/2023 Visual impairment Past Surgical History: Procedure Laterality Date APPLICATION WOUND VAC N/A 11/07/2023 Performed by Mitra Crowell MD at [facility] Cardiac catheterization 02/16/2021 Performed by Kelli Su MD at [facility] Caval Tricuspid Isthmus RFA, Carto w/ICE N/A 03/21/2021 Performed by uLrdes Weinberg MD at [facility] (EP) COLONOSCOPY POLYPECTOMY N/A 10/23/2023 Performed by Soy Talamantes MD at [facility] Coronary angiogram and left ventricular gram/pressure N/A 02/16/2021 Performed by Kelli Su MD at [facility] Coronary fractional flow reserve N/A 02/16/2021 Performed by Kelli Su MD at [facility] CREATION OF END COLOSTOMY N/A 11/07/2023 Performed by Mitra Crowell MD at [facility] ESOPHAGOGASTRODUODENOSCOPY DIAGNOSTIC N/A 10/23/2023 Performed by Soy Talamantes MD at [facility] EXAM UNDER ANESTHESIA WITH BRECTAL BIOPSY N/A 11/28/2023 Performed by Mitra Crowell MD at [facility] EXAM UNDER ANESTHESIA/RECTAL MASS BIOPSY N/A 10/25/2023 Performed by Mitra Crowell MD at [facility] FLEXIBLE SIGMOIDOSCOPY N/A 10/25/2023 Performed by Mitra Crowell MD at [facility] FLEXIBLE SIGMOIDOSCOPY WITH BIOPSY N/A 11/28/2023 Performed by Mitra Crowell MD at [facility] INSCISIONAL DEBRIDEMENT SACRUM N/A 10/20/2023 Performed by Magdi Matthew MD at [facility] INSERT ARTERIAL LINE 11/05/2023 INSERT ARTERIAL LINE 11/07/2023 Intravascular pressure measurement first vessel each additional vessel (fractional flow reserve) N/A 02/16/2021 Performed by Kelli Su MD at [facility] INTUBATION 11/07/2023 LAPAROTOMY EXPLORATORY N/A 11/07/2023 Performed by Mitra Crowell MD at [facility] MYRINGOTOMY W/ TUBES RESECTION BOWEL SMALL N/A 11/07/2023 Performed by Mitra Crowell MD at [facility] TONSILLECTOMY OBJECTIVE Vital Signs: Temp: [36.3 C [...] Value Units Date/Time Resp Pathogens Panel/SARS CoV-2 [[id number]] Collected: 12/25/23 1158 Specimen: Nasopharynx Updated: 12/25/23 [...] SARS COV 2 Not Detected Urine culture [[id number]] (Abnormal) Collected: 12/22/23 1326 Specimen: Urine from [...] PROGRESS Wound culture superficial includes gram stain [[id number]] (Abnormal) (Susceptibility) Collected: 12/22/23 1231 Specimen: Wound [...] RESISTANCE TO CLINDAMYCIN DETECTED [2] CLIA ID [id number] Blood Culture [[id number]] Collected: 12/22/23 1218 Specimen: Blood Updated: 12/25/23 1303 Culture NO GROWTH 3 DAYS Blood Culture [[id number]] Collected: 12/22/23 1218 Specimen: Blood Updated: 12/25/23 [...] Problems Diagnosis Date Noted Adenocarcinoma of rectum ([facility]) 12/24/2023 Septic shock ([facility]) 12/22/2023 Pressure injury of sacral region, stage 4 ([facility]) 10/21/2023 Resolved Problems No resolved problems to display. - Atrial fibrillation with RVR- - Hx of atypical flutter s/p ablation 02/2022 - Elevated troponin: - Hx of non obstructive CAD on [facility] 2020: - Chronic CHF with improved EF (40-45%): - No chest pain. EKG shows diffuse ST segment depression ( old). [id number] score: 5 Rate is controlled today. S/p [...] 7 pm For after hours, please page [facility] night team. Disclaimer Note: To increase efficiency, [...] from the original note were not included. [facility] [address] [place] [address] PROGRESS NOTE Harris A Hessick Patient resting [...] from last 7 days Lab Units 12/24/23 23212/23/23 1438 12/23/23 0945 TROPONIN I ng/mL 0.10* [...] below the diaphragm and out of the [id number]. Stable position of the right PICC in [...] Chronic hypotension. -persistent atrial fibrillation with RVR: [id number] score at least 5. Not on anticoagulation [...] tachy mediated cardiomyopathy. 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 -chronic [...] This note was completed using a voice biodiesel production technician system. Every effort was made to ensure accuracy. However, inadvertent computerized biodiesel production technician errors may be present. Images from the [...] progress note was completed using a voice biodiesel production technician system. Every effort was made to ensure accuracy. However, inadvertent computerized biodiesel production technician errors may be present. Associated attestation - [...] Justin Condon MD Pulmonary and critical care [facility] IP Day: 3 Subjective: Patient being to [...] Resident, PGY-1 Colorectal Surgery 6a-6p pager # [phone] 6p-6a pager #[phone] Associated attestation - Mitra Crowell MD - [...] Resident, PGY-1 Colorectal Surgery 6a-6p pager # [phone] 6p-6a pager #[phone] Associated attestation - Mitra Crowell MD - [...] 1250 mg every 24 hours per the [facility] approved renal dosing guidelines, based on an estimated creatinine clearance is 40.8 mL/min (A) (by C-G formula based on SCr of 1.17 mg/dL (H)). Plan to obtain trough prior to the fourth dose of this regimen. Thank you, Vickie Milan [facility], PharmD Ext [phone] Images from the original note were not [...] AM - PGY3 Internal Medicine Resident. - [facility]. This progress note was completed using a voice biodiesel production technician system. Every effort was made to ensure accuracy. However, inadvertent computerized biodiesel production technician errors may be present. Associated attestation - [...] Justin Condon MD Pulmonary and critical care [facility] Images from the original note [...] from last 7 days Lab Units 12/24/23 0512/23/23204712/23/23 1747 BEDSIDE GLUCOSE mg/dL -- 104* 116* [...] Procedure Component Value Units Date/Time Urine culture [[id number]] (Abnormal) Collected: 12/22/23 1326 Specimen: Urine from [...] results. Wound culture superficial includes gram stain [[id number]] (Abnormal) (Susceptibility) Collected: 12/22/23 1231 Specimen: Wound [...] testing for Cefazolin is required. Blood Culture [[id number]] Collected: 12/22/231217 Specimen: Blood Updated: 12/23/23 1303 Culture NO GROWTH 1 DAY Blood Culture [[id number]] Collected: 12/22/23 121 Specimen: Blood Updated: 12/23/23 [...] to sepsis, afib rvr, downtrending. Severely elevated S-subqu-mtowxn secondary to infection, malignancy. CT chest with [...] from the original note were not included. [facility] [address] [place] [address] PROGRESS NOTE Harris Castrejon Patient resting in [...] below the diaphragm and out of the wpuku-er-bcol. Stable position of the right PICC in [...] Chronic hypotension. -persistent atrial fibrillation with RVR: [id number]-Jawu score at least 5. Not on anticoagulation [...] tachy mediated cardiomyopathy. 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 -chronic [...] This note was completed using a voice biodiesel production technician system. Every effort was made to ensure accuracy. However, inadvertent computerized biodiesel production technician errors may be present. Images from the original note were not included. Rapid Response Event Note Patient: Harris Castrejon : 1955 Age: 68 y.o. Length of Stay: 1 days Admission Diagnosis: Atrial fibrillation with RVR ([facility]) [I48.91] Abnormal heart rate [R00.9] Chronic wound infection of abdomen, initial encounter [S31.109A, L08.9] Septic shock ([facility]) [A41.9, R65.21] Pneumonia of right upper lobe due to infectious organism [J18.9] Elevated troponin [R79.89] Tachycardia [R00.0] SITUATION Time of Call: 1511 Arrival Time: 1514 Rapid Response called due to Pt having a-fib with rvr. BACKGROUND Past Medical History: Diagnosis Date Arrhythmia Hypertension Injury of back Disc L4 and L5 Obesity Respiratory distress 10/19/2023 Septic shock ([facility]) 12/22/2023 Systolic and diastolic CHF, acute ([facility]) 09/03/2023 Visual impairment ASSESSMENT Upon my arrival, Harris Castrejon was lying in bed, deneis chest pain but c/o shortness of breath. O2 sats high 90's, slightly tachpneic. Primary RN had contacted cards after she spoke with RN technical writer and editor and an order for 5mg IV metoprolol was ordered. BP support this intervention. Rn technical writer and editor remained at bedside while medication was given. Pts HR was down into the 90's-110's still in a-fib. Primary RN instructed to call rapid with any other questions or concerns. Pt will be placed on rapid's watchers list. RECOMMENDATIONS / PLAN / OUTCOME Monitor HR Monitor vital signs Monitor work of breathing End of Call: 0970 Thank you, Malorie Lundberg RN Rapid Response: [facility] Images from the original note were [...] Procedure Component Value Units Date/Time Urine culture [[id number]] Collected: 12/22/23 1329 Specimen: Urine Updated: 12/22/23 1523 Wound culture superficial includes gram stain [[id number]] (Abnormal) Collected: 12/22/23 1231 Specimen: Wound Swab Updated: 12/23/23 0928 Gram Stain Result >25 WHITE BLOOD CELLS/LPF 10 to 24 SQUAMOUS EPITHELIAL CELLS/LPF RARE GRAM POSITIVE COCCI IN CLUSTERS INTRACELLULAR EXTRACELLULAR RARE PLEOMORPHIC GRAM POSITIVE RODS Culture CULTURE IN PROGRESS Blood Culture [[id number]] Collected: 12/22/23 1218 Specimen: Blood Updated: 12/23/23 0103 Culture NO GROWTH <24 HRS Blood Culture [[id number]] Collected: 12/22/23 1218 Specimen: Blood Updated: 12/23/23 010 Culture NO [...] to sepsis, afib rvr, downtrending. Severely elevated Y-oxhal-qkguqq secondary to infection, malignancy. CT chest with [...] from the original note were not included. [facility] [address] [place] [address] PROGRESS NOTE Harris Akua Castrejon Patient complaining of left anterior chest pain, [...] below the diaphragm and out of the kiqlo-hu-ulnf. Stable position of the right PICC in [...] and/or edited the report Finalized by Krystal Adnerson MD on 11/11/2023 4:54 AM X-ray chest [...] Chronic hypotension. -persistent atrial fibrillation with RVR: [id number]-Obfl score at least 5. Not on anticoagulation [...] tachy mediated cardiomyopathy. 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 -chronic [...] This note was completed using a voice biodiesel production technician system. Every effort was made to ensure accuracy. However, inadvertent computerized biodiesel production technician errors may be present. Images from the [...] Resident, PGY-1 Colorectal Surgery 6a-6p pager # [phone] 6p-6a pager #[phone] Associated attestation - Mitra Crowell MD - [...] Procedure Component Value Units Date/Time Urine culture [[id number]] Collected: 12/22/23 1329 Specimen: Urine Updated: 12/22/23 1523 Blood Culture [[id number]] Collected: 12/22/23 1239 Specimen: Blood, Peripheral Draw Updated: 12/22/23 1303 Blood Culture [[id number]] Collected: 12/22/23 123 Specimen: Blood, Peripheral Draw Updated: 12/22/23 1303 Wound culture superficial includes gram stain [[id number]] Collected: 12/22/23 1239 Updated: 12/22/23 1419 Concurrent [...] 4 Hours intravenous Every 12 hours 12/22/23 17312/22/23 1800 metroNIDAZOLE (FLAGYL) IVPB 500 mg/100 mL [...] voicemail. Will attempt to call again later Esl Instructor attempted to reach patients , Liborio, to have him fill out MRI Checklist via telephone. Liborio did not order picker and call was sent to voicemail. Pt spouse in room, very upset that pt has rook boots on. Spouse educated on importance of boots to help prevent sores on heels. Pt spouse said she did not like them and and demanded RN take them off, to use pillows instead. Rook boots removed and pillows placed under legs so heels of off-loaded. [employer] And charger operator helper Shante notified. documented in this encounter [facility] 12-24-2023 Consult note Associated Order (s): IP CONSULT TO INFECTIOUS DISEASES Images from the original note were not included. Infectious Diseases Academic Team 1 - Initial Consult Note - Please contact us via [email or web address] chat. After hours, call [phone] Patient name: Harris Castrejon Patient Today's Date [...] and early November. She presented initially to [place] ER with hypoglycemia and pain from wounds on her buttocks she would acute renal failure sepsis and she had are AFib with RVR that time too. She was intubated and transferred to [facility] she spent some time in [...] L5 Obesity Respiratory distress 10/19/2023 Septic shock ([facility]) 12/22/2023 Systolic and diastolic CHF, acute ([facility]) 09/03/2023 Visual impairment Past Surgical History: Past Surgical History: Procedure Laterality Date APPLICATION WOUND VAC N/A 11/07/2023 Performed by Mitra Crowell MD at [facility] Cardiac catheterization 02/16/2021 Performed by Kelli Su MD at [facility] Caval Tricuspid Isthmus RFA, Carto w/ICE N/A 03/21/2021 Performed by Lurdes Weinberg MD at [facility] (EP) COLONOSCOPY POLYPECTOMY N/A 10/23/2023 Performed by Soy Talamantes MD at [facility] Coronary angiogram and left ventricular gram/pressure N/A 02/16/2021 Performed by Kelli Su MD at [facility] Coronary fractional flow reserve N/A 02/16/2021 Performed by Kelli Su MD at [facility] CREATION OF END COLOSTOMY N/A 11/07/2023 Performed by Mitra Crowell MD at [facility] ESOPHAGOGASTRODUODENOSCOPY DIAGNOSTIC N/A 10/23/2023 Performed by Soy Talamantes MD at [facility] EXAM UNDER ANESTHESIA WITH BRECTAL BIOPSY N/A 11/28/2023 Performed by Mitra Crowell MD at [facility] EXAM UNDER ANESTHESIA/RECTAL MASS BIOPSY N/A 10/25/2023 Performed by Mitra Crowell MD at [facility] FLEXIBLE SIGMOIDOSCOPY N/A 10/25/2023 Performed by Mitra Crowell MD at [facility] FLEXIBLE SIGMOIDOSCOPY WITH BIOPSY N/A 11/28/2023 Performed by Mitra Crowell MD at [facility] INSCISIONAL DEBRIDEMENT SACRUM N/A 10/20/2023 Performed by Magdi Matthew MD at [facility] INSERT ARTERIAL LINE 11/05/2023 INSERT ARTERIAL LINE 11/07/2023 Intravascular pressure measurement first vessel each additional vessel (fractional flow reserve) N/A 02/16/2021 Performed by Kelli Su MD at [facility] INTUBATION 11/07/2023 LAPAROTOMY EXPLORATORY N/A 11/07/2023 Performed by Mitra Crowell MD at [facility] MYRINGOTOMY W/ TUBES RESECTION BOWEL SMALL N/A 11/07/2023 Performed by Mitra Crowell MD at [facility] TONSILLECTOMY Medications: aspirin, 81 mg, oral, Daily [...] Procedure Component Value Units Date/Time Urine culture [[id number]] (Abnormal) Collected: 12/22/23 1326 Specimen: Urine from [...] PROGRESS Wound culture superficial includes gram stain [[id number]] (Abnormal) (Susceptibility) Collected: 12/22/23 1231 Specimen: Wound [...] testing for Cefazolin is required. Blood Culture [[id number]] Collected: 12/22/23 1218 Specimen: Blood Updated: 12/24/23 1303 Culture NO GROWTH 2 DAYS Blood Culture [[id number]] Collected: 12/22/23 1218 Specimen: Blood Updated: 12/24/23 1303 Culture NO GROWTH 2 DAYS Thank you for allowing us to participate in the care of this patient. - ROBERT GARCÍA MD 12/24/23 6:40 PM [facility] Infectious Diseases Please contact us via [email or web address] chat Associated Order(s): IP CONSULT TO RADIATION ONCOLOGY Images from the original note were not included. [facility] Reginald Villalta M.D. Reinaldo Olivarez M.D. Favio Dupree M.D. Robert Rosas M.D. Glenny Pierre, TOBACCO WAREHOUSE MANAGER-PRODUCT GRADER Shannon Adame M.D. Silvano Glass M.D. Hannah Monaco M.D. Randi Barker, DOLORES-PRODUCT GRADER [facility] INPATIENT CONSULT Date of Service: 12/24/23 Location: [address] [facility] [address] Patient ID: Name: Harris Castrejon : 1955 Harris Castrejon is being seen today for an oncologic opinion at the request of Dr. Jose Ferguson. Chief Complaint Chief Complaint Patient presents with Atrial Fibrillation Cancer Staging Patient Active Problem List Diagnosis Cerumen debris on tympanic membrane of both ears Typical atrial flutter (CMS-HCC) Coronary artery disease involving [place] coronary artery of [place] heart without angina pectoris Tachycardia induced cardiomyopathy [...] 10/19/2023 to 12/04/2023 where she presented to [place] ED with generalized weakness. She was found [...] intubated for airway protection and transferred to [facility] ICU for the management care. [...] L5 Obesity Respiratory distress 10/19/2023 Septic shock ([facility]) 12/22/2023 Systolic and diastolic CHF, acute ([facility]) 09/03/2023 Visual impairment Past Surgical History: Procedure Laterality Date APPLICATION WOUND VAC N/A 11/07/2023 Performed by Mitra Crowell MD at [facility] Cardiac catheterization 02/16/2021 Performed by Kelli Su MD at [facility] Caval Tricuspid Isthmus RFA, Carto w/ICE N/A 03/21/2021 Performed by Lurdes Weinberg MD at [facility] () COLONOSCOPY POLYPECTOMY N/A 10/23/2023 Performed by Soy Talamantes MD at [facility] Coronary angiogram and left ventricular gram/pressure N/A 02/16/2021 Performed by Kelli Su MD at [facility]ATH [facility] Coronary fractional flow reserve N/A 02/16/2021 Performed by Kelli Su MD at [facility] CREATION OF END COLOSTOMY N/A 11/07/2023 Performed by Mitra Crowell MD at [facility] ESOPHAGOGASTRODUODENOSCOPY DIAGNOSTIC N/A 10/23/2023 Performed by Soy Talamantes MD at [facility] EXAM UNDER ANESTHESIA WITH BRECTAL BIOPSY N/A 11/28/2023 Performed by Mitra Crowell MD at [facility] EXAM UNDER ANESTHESIA/RECTAL MASS BIOPSY N/A 10/25/2023 Performed by Mitra Crowell MD at [facility] FLEXIBLE SIGMOIDOSCOPY N/A 10/25/2023 Performed by Mitra Crowell MD at [facility] FLEXIBLE SIGMOIDOSCOPY WITH BIOPSY N/A 11/28/2023 Performed by Mitra Crowell MD at [facility] INSCISIONAL DEBRIDEMENT SACRUM N/A 10/20/2023 Performed by Magdi Matthew MD at [facility] INSERT ARTERIAL LINE 11/05/2023 INSERT ARTERIAL LINE 11/07/2023 Intravascular pressure measurement first vessel each additional vessel (fractional flow reserve) N/A 02/16/2021 Performed by Kelli Su MD at [facility] CARDIAC CATH LABS INTUBATION 11/07/2023 LAPAROTOMY EXPLORATORY N/A 11/07/2023 Performed by Mitra Crowell MD at [facility] MYRINGOTOMY W/ TUBES RESECTION BOWEL SMALL N/A 11/07/2023 Performed by Mitra Crowell MD at [facility] TONSILLECTOMY Scheduled Meds: aspirin, 81 mg, oral, [...] perform ROS: Mental status change Physical Exam Manager Lean:declined Vital Signs: BP 135/59 Pulse 116 Temp [...] 10/19/2023 to 12/04/2023 where she presented to [place] ED with generalized weakness. She had a [...] 10 minutes preparing this dictation. NICOLAS Miller [facility] December 24, 2023 CC: Patient Care Team: Carol Akins PA-C as PCP - General (Physician Binder Coverstitch) NICOLAS Miller 12/24/23 3005 Images from the original note were not included. [facility] Gurpreet Nagy M.D. Racquel Langston M.D. Sonya Ruelas M.D. Sunni Stack M.D. Tara Funes, [facility] Keron Gtzxochitl, [facility] Tiffanie Segal, [facility] Rufina Nile, [facility] JUAN Brown M.D. Tc Ridley M.D. Reinaldo Felder M.D. Alfred Adams M.D. Carole Gaviria, [facility] Jenny Unique, [facility] Tian Dhaliwal, [facility] Yeny Medrano, [facility] Mendy Nielsen, [facility] CONSULT NOTE 12/24/23 Reason for [...] L5 Obesity Respiratory distress 10/19/2023 Septic shock ([facility]) 12/22/2023 Systolic and diastolic CHF, acute ([facility]) 09/03/2023 Visual impairment Past Surgical History: Procedure Laterality Date APPLICATION WOUND VAC N/A 11/07/2023 Performed by Mitra Crowell MD at [facility] Cardiac catheterization 02/16/2021 Performed by Kelli Su MD at [facility] CARDIAC CATH LABS Caval Tricuspid Isthmus RFA, Carto w/ICE N/A 03/21/2021 Performed by Lurdes Weinberg MD at [facility] () COLONOSCOPY POLYPECTOMY N/A 10/23/2023 Performed by Soy Talamantes MD at [facility] Coronary angiogram and left ventricular gram/pressure N/A 02/16/2021 Performed by Kelli Su MD at [facility]ATH [facility]S Coronary fractional flow reserve N/A 02/16/2021 Performed by Kelli Su MD at [facility]ATH [facility]S CREATION OF END COLOSTOMY N/A 11/07/2023 Performed by Mitra Crowell MD at [facility] ESOPHAGOGASTRODUODENOSCOPY DIAGNOSTIC N/A 10/23/2023 Performed by Soy Talamantes MD at [facility] EXAM UNDER ANESTHESIA WITH BRECTAL BIOPSY N/A 11/28/2023 Performed by Mitra Crowell MD at [facility] EXAM UNDER ANESTHESIA/RECTAL MASS BIOPSY N/A 10/25/2023 Performed by Mitra Crowell MD at [facility] FLEXIBLE SIGMOIDOSCOPY N/A 10/25/2023 Performed by Mitra Crowell MD at [facility] FLEXIBLE SIGMOIDOSCOPY WITH BIOPSY N/A 11/28/2023 Performed by Mitra Crowell MD at [facility] INSCISIONAL DEBRIDEMENT SACRUM N/A 10/20/2023 Performed by Magdi Matthew MD at [facility] INSERT ARTERIAL LINE 11/05/2023 INSERT ARTERIAL LINE 11/07/2023 Intravascular pressure measurement first vessel each additional vessel (fractional flow reserve) N/A 02/16/2021 Performed by Kelli Su MD at [facility] CARDIAC CATH LABS INTUBATION 11/07/2023 LAPAROTOMY EXPLORATORY N/A 11/07/2023 Performed by Mitra Crowell MD at [facility] MYRINGOTOMY W/ TUBES RESECTION BOWEL SMALL N/A 11/07/2023 Performed by Mitra Crowell MD at [facility] TONSILLECTOMY Family History Problem Relation Age of [...] atrial flutter (CMS-HCC) Coronary artery disease involving [place] coronary artery of [place] heart without angina pectoris Tachycardia induced cardiomyopathy [...] forearm Moderate protein-calorie malnutrition (CMS-HCC) Septic shock ([facility]) Assessment/Plan #Distal rectal mass, with biopsy from [...] for the consultation. Mendy Nielsen APRN CNP [facility] [address] [place] [address] December 24, 2023, 9:29 AM Please note that portions of this note were generated using voice recognition beModel dictation software. Although every effort was made to ensure the accuracy of this automated biodiesel production technician, some errors in biodiesel production technician may have occurred. NICOLAS Yao 12/24/23 1418 I have personally performed a face to [...] L5 Obesity Respiratory distress 10/19/2023 Septic shock ([facility]) 12/22/2023 Systolic and diastolic CHF, acute ([facility]) 09/03/2023 Visual impairment PSH: Past Surgical History: Procedure Laterality Date APPLICATION WOUND VAC N/A 11/07/2023 Performed by Mitra Crowell MD at [facility] Cardiac catheterization 02/16/2021 Performed by Kelli Su MD at [facility] CARDIAC CATH LABS Caval Tricuspid Isthmus RFA, Carto w/ICE N/A 03/21/2021 Performed by Lurdes Weinberg MD at [facility] () COLONOSCOPY POLYPECTOMY N/A 10/23/2023 Performed by Soy Talamantes MD at [facility] Coronary angiogram and left ventricular gram/pressure N/A 02/16/2021 Performed by Kelli Su MD at [facility] C[facility] CATH [facility]S Coronary fractional flow reserve N/A 02/16/2021 Performed by Kelli Su MD at [facility] C[facility] CATH [facility]S CREATION OF END COLOSTOMY N/A 11/07/2023 Performed by Mitra Crowell MD at [facility] ESOPHAGOGASTRODUODENOSCOPY DIAGNOSTIC N/A 10/23/2023 Performed by Soy Talamantes MD at [facility] EXAM UNDER ANESTHESIA WITH BRECTAL BIOPSY N/A 11/28/2023 Performed by Mitra Crowell MD at [facility] EXAM UNDER ANESTHESIA/RECTAL MASS BIOPSY N/A 10/25/2023 Performed by Mitra Crowell MD at [facility] FLEXIBLE SIGMOIDOSCOPY N/A 10/25/2023 Performed by Mitra Crowell MD at [facility] FLEXIBLE SIGMOIDOSCOPY WITH BIOPSY N/A 11/28/2023 Performed by Mitra Crowell MD at [facility] INSCISIONAL DEBRIDEMENT SACRUM N/A 10/20/2023 Performed by Magdi Matthew MD at [facility] INSERT ARTERIAL LINE 11/05/2023 INSERT ARTERIAL LINE 11/07/2023 Intravascular pressure measurement first vessel each additional vessel (fractional flow reserve) N/A 02/16/2021 Performed by Kelli Su MD at [facility] CARDIAC CATH LABS INTUBATION 11/07/2023 LAPAROTOMY EXPLORATORY N/A 11/07/2023 Performed by Mitra Crowell MD at [facility] MYRINGOTOMY W/ TUBES RESECTION BOWEL SMALL N/A 11/07/2023 Performed by Mitra Crowell MD at [facility] TONSILLECTOMY Allergies: Allergies Allergen Reactions Oats [...] mouth in the morning. Past Week fat obwe-myt-epy-oliv-fish oil, SMOFLIPID, 20 % emulsion infusion Infuse [...] Procedure Component Value Units Date/Time Urine culture [[id number]] (Abnormal) Collected: 12/22/23 1326 Specimen: Urine from [...] results. Wound culture superficial includes gram stain [[id number]] (Abnormal) Collected: 12/22/23 1231 Specimen: Wound Swab Updated: 12/23/23 1124 Gram Stain Result >25 WHITE BLOOD CELLS/LPF 10 to 24 SQUAMOUS EPITHELIAL CELLS/LPF RARE GRAM POSITIVE COCCI IN CLUSTERS INTRACELLULAR EXTRACELLULAR RARE PLEOMORPHIC GRAM POSITIVE RODS Culture FEW ESCHERICHIA COLI CULTURE IN PROGRESS Blood Culture [[id number]] Collected: 12/22/23 1218 Specimen: Blood Updated: 12/23/23 1303 Culture NO GROWTH 1 DAY Blood Culture [[id number]] Collected: 12/22/23 1218 Specimen: Blood Updated: 12/23/23 [...] MD [facility] Line -3p [phone] - pager M--3p Secure Chat preferred & [...] EMS was called to take patient to [facility] ER. Pulmonology was consulted for evaluation of mediastinal lymphadenopathy. She has history of diabetes, essential hypertension, mixed hyperlipidemia, HFREF 40-45% feb 24, atrial fibrillation/flutter s/p ablation 2020, atherosclerotic heart [...] L5 Obesity Respiratory distress 10/19/2023 Septic shock ([facility]) 12/22/2023 Systolic and diastolic CHF, acute ([facility]) 09/03/2023 Visual impairment PSH: Past Surgical History: Procedure Laterality Date APPLICATION WOUND VAC N/A 11/07/2023 Performed by Mitra Crowell MD at [facility] Cardiac catheterization 02/16/2021 Performed by Kelli Su MD at [facility] CARDIAC CATH LABS Caval Tricuspid Isthmus RFA, Carto w/ICE N/A 03/21/2021 Performed by Lurdes Weinberg MD at [facility] (EP) COLONOSCOPY POLYPECTOMY N/A 10/23/2023 Performed by Soy Talamantes MD at [facility] Coronary angiogram and left ventricular gram/pressure N/A 02/16/2021 Performed by Kelli Su MD at [facility] CARDIAC CATH LABS Coronary fractional flow reserve N/A 02/16/2021 Performed by Kelli Su MD at [facility] CARDIAC CATH LABS CREATION OF END COLOSTOMY N/A 11/07/2023 Performed by Mitra Crowell MD at [facility] ESOPHAGOGASTRODUODENOSCOPY DIAGNOSTIC N/A 10/23/2023 Performed by Soy Talamantes MD at [facility] EXAM UNDER ANESTHESIA WITH BRECTAL BIOPSY N/A 11/28/2023 Performed by Mitra Crowell MD at [facility] EXAM UNDER ANESTHESIA/RECTAL MASS BIOPSY N/A 10/25/2023 Performed by Mitra Crowell MD at [facility] FLEXIBLE SIGMOIDOSCOPY N/A 10/25/2023 Performed by Mitra Crowell MD at [facility] FLEXIBLE SIGMOIDOSCOPY WITH BIOPSY N/A 11/28/2023 Performed by Mitra Crowell MD at [facility] INSCISIONAL DEBRIDEMENT SACRUM N/A 10/20/2023 Performed by Magdi Matthew MD at [facility] INSERT ARTERIAL LINE 11/05/2023 INSERT ARTERIAL LINE 11/07/2023 Intravascular pressure measurement first vessel each additional vessel (fractional flow reserve) N/A 02/16/2021 Performed by Kelli Su MD at [facility] CARDIAC CATH LABS INTUBATION 11/07/2023 LAPAROTOMY EXPLORATORY N/A 11/07/2023 Performed by Mitra Crowell MD at [facility] MYRINGOTOMY W/ TUBES RESECTION BOWEL SMALL N/A 11/07/2023 Performed by Mitra Crowell MD at [facility] TONSILLECTOMY Allergies: Allergies Allergen Reactions Oats Home [...] PM - PGY3 Internal Medicine Resident. - [facility]. This consult note was completed using a voice biodiesel production technician system. Every effort was made to ensure accuracy. However, inadvertent computerized biodiesel production technician errors may be present. Associated attestation - [...] Justin Condon MD Pulmonary and critical care [facility] Associated Order(s): IP CONSULT TO CARDIOLOGY Images from the original note were not included. [facility] [address] [place] [address] HISTORY & PHYSICAL / CONSULT NOTE Harris [...] distress 10/19/2023 Systolic and diastolic CHF, acute ([facility]) 09/03/2023 Visual impairment Previous Surgical History: Past Surgical History: Procedure Laterality Date APPLICATION WOUND VAC N/A 11/07/2023 Performed by Mitra Crowell MD at [facility] Cardiac catheterization 02/16/2021 Performed by Kelli Su MD at [facility] CARDIAC CATH LABS Caval Tricuspid Isthmus RFA, Carto w/ICE N/A 03/21/2021 Performed by Lurdes Weinberg MD at [facility] (EP) COLONOSCOPY POLYPECTOMY N/A 10/23/2023 Performed by Soy Talamantes MD at [facility] Coronary angiogram and left ventricular gram/pressure N/A 02/16/2021 Performed by Kelli Su MD at [facility] CARDIAC CATH LABS Coronary fractional flow reserve N/A 02/16/2021 Performed by Kelli Su MD at [facility] CARDIAC CATH LABS CREATION OF END COLOSTOMY N/A 11/07/2023 Performed by Mitra Crowell MD at [facility] ESOPHAGOGASTRODUODENOSCOPY DIAGNOSTIC N/A 10/23/2023 Performed by Soy Talamantes MD at [facility] EXAM UNDER ANESTHESIA WITH BRECTAL BIOPSY N/A 11/28/2023 Performed by Mitra Crowell MD at [facility] EXAM UNDER ANESTHESIA/RECTAL MASS BIOPSY N/A 10/25/2023 Performed by Mitra Crowell MD at [facility] FLEXIBLE SIGMOIDOSCOPY N/A 10/25/2023 Performed by Mitra Crowell MD at [facility] FLEXIBLE SIGMOIDOSCOPY WITH BIOPSY N/A 11/28/2023 Performed by Mitra Crowell MD at [facility] INSCISIONAL DEBRIDEMENT SACRUM N/A 10/20/2023 Performed by Magdi Matthew MD at [facility] INSERT ARTERIAL LINE 11/05/2023 INSERT ARTERIAL LINE 11/07/2023 Intravascular pressure measurement first vessel each additional vessel (fractional flow reserve) N/A 02/16/2021 Performed by Kelli Su MD at [facility] CARDIAC CATH LABS INTUBATION 11/07/2023 LAPAROTOMY EXPLORATORY N/A 11/07/2023 Performed by iMtra Crowell MD at [facility] MYRINGOTOMY W/ TUBES RESECTION BOWEL SMALL N/A 11/07/2023 Performed by Mitra Crowell MD at [facility] TONSILLECTOMY Allergies: Allergies Allergen Reactions [facility] Meds: Current Facility-Administered Medications Medication Dose [...] 125 mL intravenous Once in imaging Salbador Madrid, DO metroNIDAZOLE (FLAGYL) IVPB 500 mg/100 mL in iso-osmotic sodium chloride (5 mg/mL premix) 500 mg intravenous Q8H Lexx Medina MD sodium chloride 0.9 % flush 10 mL 10 mL intravenous Once in imaging Salbador Madrid, DO sodium chloride 0.9 % flush bag 25 mL intravenous PRN Lexx Medina MD sodium chloride 0.9 % infusion 20 mL/hr intravenous Continuous PRN Lexx Medina MD sodium chloride 0.9 % infusion 100 mL/hr intravenous Continuous Umang Antonio MD sodium chloride 0.9 % radiology injection 80 mL intravenous Once in imaging Salbador Madrid, DO Home Meds: Prior to Admission medications [...] the morning. 12/05/23 Yes NICOLAS Chi fat dwed-byl-jkt-oliv-fish oil, SMOFLIPID, 20 % emulsion infusion Infuse [...] be tachy mediated ASCVD moderate disease per [facility] 521 Chronic hypotension on midodrine with history [...] and digoxin Resume metoprolol as BP allows NICOLAS LUA This note was completed using a voice biodiesel production technician system. Every effort was made to ensure accuracy. However, inadvertent computerized biodiesel production technician errors may be present. NICOLAS Lua 12/22/231731 IRafa MD, personally performed the face to face [...] very complicated stay documented in this encounter [facility] 12-22-2023 History and physical note Images from the original note were not included. IMS-3 HISTORY AND PHYSICAL Date of Service: 12/22/2023 Patient Name: Harris Castrejon : 1955 PCP: Carol Akins PA-C Chief Complaint: cough, shortness of breath, MRI findings HPI: Harris Castrejon is a 68 y.o. female medical history of diabetes, essential hypertension, mixed hyperlipidemia, HFREF 40-45% b , atrial fibrillation/flutter s/p ablation 2020,, atherosclerotic heart [...] 11/07/2023 Performed by Mitra Crowell MD at [facility] Cardiac catheterization 02/16/2021 Performed by Kelli Su MD at [facility] CARDIAC CATH LABS Caval Tricuspid Isthmus RFA, Carto w/ICE N/A 03/21/2021 Performed by Lurdes Weinberg MD at [facility] (EP) COLONOSCOPY POLYPECTOMY N/A 10/23/2023 Performed by Soy Talamantes MD at [facility] Coronary angiogram and left ventricular gram/pressure N/A 02/16/2021 Performed by Kelli Su MD at [facility] CARDIAC CATH LABS Coronary fractional flow reserve N/A 02/16/2021 Performed by Kelli Su MD at [facility] CARDIAC CATH LABS CREATION OF END COLOSTOMY N/A 11/07/2023 Performed by Mitra Crowell MD at [facility] ESOPHAGOGASTRODUODENOSCOPY DIAGNOSTIC N/A 10/23/2023 Performed by Soy Talamantes MD at [facility] EXAM UNDER ANESTHESIA WITH BRECTAL BIOPSY N/A 11/28/2023 Performed by Mitra Crowell MD at [facility] EXAM UNDER ANESTHESIA/RECTAL MASS BIOPSY N/A 10/25/2023 Performed by Mitra Crowell MD at [facility] FLEXIBLE SIGMOIDOSCOPY N/A 10/25/2023 Performed by Mitra Crowell MD at [facility] FLEXIBLE SIGMOIDOSCOPY WITH BIOPSY N/A 11/28/2023 Performed by Mitra Crowell MD at [facility] INSCISIONAL DEBRIDEMENT SACRUM N/A 10/20/2023 Performed by Magdi Matthew MD at [facility] INSERT ARTERIAL LINE 11/05/2023 INSERT ARTERIAL LINE 11/07/2023 Intravascular pressure measurement first vessel each additional vessel (fractional flow reserve) N/A 02/16/2021 Performed by Kelli Su MD at [facility] CARDIAC CATH LABS INTUBATION 11/07/2023 LAPAROTOMY EXPLORATORY N/A 11/07/2023 Performed by Mitra Crowell MD at [facility] MYRINGOTOMY W/ TUBES RESECTION BOWEL SMALL N/A 11/07/2023 Performed by Mitra Crowell MD at [facility] TONSILLECTOMY Home Medications: Prior to Admission [...] the morning. 12/05/23 Yes NICOLAS Chi fat tgmm-tsd-qrz-oliv-fish oil, SMOFLIPID, 20 % emulsion infusion Infuse [...] Procedure Component Value Units Date/Time Urine culture [[id number]] Collected: 12/22/23 1329 Specimen: Urine Updated: 12/22/23 1523 Blood Culture [[id number]] Collected: 12/22/23 1239 Specimen: Blood, Peripheral Draw Updated: 12/22/23 1303 Blood Culture [[id number]] Collected: 12/22/23 1239 Specimen: Blood, Peripheral Draw Updated: 12/22/23 1303 Wound culture superficial includes gram stain [[id number]] Collected: 12/22/23 1239 Updated: 12/22/[address] [...] made to ensure accuracy; however, inadvertent computerized biodiesel production technician errors may be present. Lexx Medina MD [...] EGD under MAC with Dr. Talamantes at [facility] pending clearance. Patient last seen 08/21/22 by SER. Needs appt for clearance. Message sent to scheduling. Was last supposed to see MAS but cancelled, needs to see general cardiology documented in this encounter [facility] 12-10-2023 Telephone encounter Note Images from the original note were not included. Cardiac clearance request received for EGD under MAC with Dr. Talamantes at [facility] pending clearance. Patient last seen 08/21/22 by [...] unsure [facility] 12/09/2023 1549 attempted to call but VM box has not been set up [facility] 12-09-2023 Telephone encounter Note CRS Pathology results noted. Needs MRI. I called the patient's home phone number and left a VM to give us a call so we can have her come to the office to review and discuss next steps. I am unsure if she has been discharged from [facility] 12/09/2023 1549 attempted to call but VM box has not been set up [facility] Work Phone: 11-27-2023 Miscellaneous Notes LEFT A VM CANCELING [facility] [address] [facility] BARNES PATIENT IS CURRENTLY INPATIENT PRESCHEDULED TO [facility]23 Telephone encounter Note LEFT A VM CANCELING [facility] [address] BARNES PATIENT IS CURRENTLY INPATIENT PRESCHEDULED TO MAY [facility] 11-25-2023 Miscellaneous Notes Message from the 11/22/23 discharge list per TLM. He signed off patient care from [facility] Dx persistent atrial fibrillation. Rate better controlled. 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 GI bleeding with history of thrombocytopenia Patient to f/u in 1 to 2 weeks post d/c bvb Pt still currently admitted to [facility]. JLW Currently admitted Pt is still currently admitted documented in this encounter [facility] 11-25-2023 Telephone encounter Note Message from the 11/22/23 discharge list per TLM. He signed off patient care from [facility] Dx persistent atrial fibrillation. Rate better controlled. 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 GI bleeding with history of thrombocytopenia Patient to f/u in 1 to 2 weeks post d/c bvb [facility] 11-25-2023 Telephone encounter Note Pt still currently admitted to [facility]. JLW [facility] 11-25-2023 Telephone encounter Note Currently admitted [facility] 11-25-2023 Telephone encounter Note Pt is still currently admitted [facility] 11-13-2023 Miscellaneous Notes Esl Instructor contacted Harris to make hospital follow up. Per Dr. Rivera Patient can follow up in our clinic in 2-4 weeks after discharge. documented in this encounter [facility] 11-13-2023 Telephone encounter Note Esl Instructor contacted Harris to make hospital follow up. [...] [facility] 11-03-2023 Miscellaneous Notes Per recs, patient should be scheduled for [...] at hospital Patient is currently inpatient at [facility]. Per notes in chart patient is septic. She will require an office visit with cardiology to obtain clearance to proceed with scheduling the EGD. Thank you documented in this encounter [facility] 11-03-2023 Telephone encounter Note Per recs, patient should be scheduled for outpatient EGD in 4 weeks to assess healing of esophagitis noted on EGD 10/23 with [facility] Work Phone: 11-03-2023 Telephone encounter Note Current inpatient [facility] 11-03-2023 Telephone encounter Note OK to schedule EGD or should patient be seen prior? Thank you [facility] 11-03-2023 Telephone encounter Note Okay to schedule EGD [facility] Work Phone: 11-03-2023 Telephone encounter Note ASA as inpatient was 4, should she be ASA 3 with Mac at the hospital? Cardiac clearance faxed for afib Thank you [facility] 11-03-2023 Telephone encounter Note Yes, please. ASA 3, MAC at hospital [facility] 11-03-2023 Telephone encounter Note Patient is currently inpatient at [facility]. Per notes in chart patient is septic. She will require an office visit with cardiology to obtain clearance to proceed with scheduling the EGD. Thank you [facility] 10-17-2023 Note XR CHEST 1 VW Procedure: Chest x-ray performed Number of views:AP portable History:Transient alteration of awareness Comparison:10/05/2023 Findings: The heart and lungs show no acute findings, and the mediastinum and bobby are grossly negative . Impression: No acute change. Finalized by Harris Wilde DO on 10/17/2023 5:08 PM [facility] 10-14-2023 Miscellaneous Notes Per [facility] pt wants to cancel appt, phoned pt and spoke with spouse and pt does indeed want to cancel appt and will call back at a later time to reschedule appt. documented in this encounter [facility] 10-14-2023 Telephone encounter Note Per [facility] pt wants to cancel appt, phoned pt and spoke with spouse and pt does indeed want to cancel appt and will call back at a later time to reschedule appt. [facility] 10-07-2023 History of Present illness Narrative Patient was admitted to [facility] from 09/20/2023 to 10/05/2023 for circulatory shock [...] warfarin. Visit with [facility] scheduled 10/15/23. Gerardo Bonilla RP 10/07/23 [id number] documented in this encounter [facility] 10-05-2023 History of Present illness Narrative Images from the original note were not included. [facility] [address] [place] [address] PROGRESS NOTE Harris Castrejon is resting in [...] This note was completed using a voice biodiesel production technician system. Every effort was made to ensure accuracy. However, inadvertent computerized biodiesel production technician errors may be present. NICOLAS Garces 10/05/23 [...] congestive heart failure with EF of 40-45%, mkik-ig-crsfwvzg MR and moderate TR Anemia, on Aranesp [...] tube LILIA COX MD [facility] ANY QUESTIONS FEEL FREE TO CALL: 1. OFFICE [phone] 2. ANSWERING SERVICE:[phone] This note was created with the assistance of a speech-recognition program. Although the intention is to generate a document that actually reflects the content of the visit, no guarantees can be provided that every mistake has been identified and corrected by editing. Images from the original note were not included. [facility] Progress Note 10/04/2023 Patient Name: Harris Castrejon : 1955 Hospital Day: 15 SUBJECTIVE Follow-up for weakness The patient seen and examined. No acute events over night. No chest pain, palpitations or dizziness. Past Medical History: Diagnosis Date Arrhythmia Hypertension Injury of back Disc L4 and L5 Obesity Systolic and diastolic CHF, acute ([facility]) 09/03/2023 Visual impairment Past Surgical History: Procedure Laterality Date Cardiac catheterization 02/16/2021 Performed by Kelli Su MD at [facility] CARDIAC CATH LABS Caval Tricuspid Isthmus RFA, Carto w/ICE N/A 03/21/2021 Performed by Lurdes Weinberg MD at [facility] HR (EP) Coronary angiogram and left ventricular gram/pressure N/A 02/16/2021 Performed by Kelli Su MD at [facility] CARDIAC CATH LABS Coronary fractional flow reserve N/A 02/16/2021 Performed by Kelli Su MD at [facility] CARDIAC CATH LABS Intravascular pressure measurement first vessel each additional vessel (fractional flow reserve) N/A 02/16/2021 Performed by Kelli Su MD at [facility] CARDIAC CATH LABS MYRINGOTOMY W/ TUBES TONSILLECTOMY [...] Problems Diagnosis Date Noted Acute kidney injury ([facility]) 09/20/2023 Resolved Problems No resolved problems to [...] kidney injury on CKD stage 4 requiring UNIT ASSISTANT-improving Received 2 sessions of hemodialysis 09/21, 09/22 [...] from the original note were not included. [facility] [address] [place] [address] PROGRESS NOTE Harris Castrejon does not have [...] to be tachycardia mediated Nonobstructive CAD per [facility] in 2020 with negative IFR but did [...] This note was completed using a voice biodiesel production technician system. Every effort was made to ensure accuracy. However, inadvertent computerized biodiesel production technician errors may be present. Amrita Lira PA-C [...] congestive heart failure with EF of 40-45%, hksy-bl-mposakvm MR and moderate TR Anemia, on Aranesp [...] 7 days Lab Units 10/03/23 0529 10/02/23 0810/01/23 1730 10/01/23 0620 09/30/23 0315 WBC X10E9/L [...] tube LILIA COX MD [facility] ANY QUESTIONS FEEL FREE TO CALL: 1. OFFICE [phone] 2. ANSWERING SERVICE:[phone] This note was created with the assistance of a speech-recognition program. Although the intention is to generate a document that actually reflects the content of the visit, no guarantees can be provided that every mistake has been identified and corrected by editing. Images from the original note were not included. [facility] 10/03/2023 Patient Name: Harris Castrejon : 1955 Hospital Day: 14 SUBJECTIVE Follow-up for weakness The patient seen and examined. No acute events over night. Patient denies any black tarry stool. She denies chest pain, palpitations and difficulty in breathing. Past Medical History: Diagnosis Date Arrhythmia Hypertension Injury of back Disc L4 and L5 Obesity Systolic and diastolic CHF, acute ([facility]) 09/03/2023 Visual impairment Past Surgical History: Procedure Laterality Date Cardiac catheterization 02/16/2021 Performed by Kelli Su MD at [facility] CARDIAC CATH LABS Caval Tricuspid Isthmus RFA, Carto w/ICE N/A 03/21/2021 Performed by Lurdes Weinberg MD at [facility] HRC (EP) Coronary angiogram and left ventricular gram/pressure N/A 02/16/2021 Performed by Kelli Su MD at [facility] CARDIAC CATH LABS Coronary fractional flow reserve N/A 02/16/2021 Performed by Kelli Su MD at [facility] CARDIAC CATH LABS Intravascular pressure measurement first vessel each additional vessel (fractional flow reserve) N/A 02/16/2021 Performed by Kelli Su MD at [facility] CARDIAC CATH LABS MYRINGOTOMY W/ TUBES TONSILLECTOMY [...] Component Value Units Date/Time Blood culture #2 [[id number]] (Abnormal) Collected: 09/27/23 0538 Specimen: Blood Updated: 09/29/23 1037 Culture STAPHYLOCOCCUS, COAGULASE NEGATIVE NOT S.LUGDUNENSIS POSSIBLE COLLECTION CONTAMINATION. SINGLE POSITIVE CULTURE IS OF UNCERTAIN CLINICAL SIGNIFICANCE. SUGGEST CONTINUED MONITORING OF REMAINING BLOOD CULTURES. CONTACT MICROBIOLOGY IF FURTHER INFORMATION IS REQUIRED. Staphylococcus species detected by PCR (not S. aureus, S.epidermidis, or S.lugdunensis). Blood culture #1 [[id number]] Collected: 09/27/23 0431 Specimen: Blood Updated: 10/02/23 0546 Specimen Notes ONLY AEROBIC BOTTLE RECEIVED, SUBOPTIMAL VOLUME OF BLOOD COLLECTED, RESULTS MAY BE AFFECTED Culture NO GROWTH 5 DAYS Urine culture [[id number]] Collected: 09/27/23 0405 Specimen: Urine Updated: 09/28/23 [...] Problems Diagnosis Date Noted Acute kidney injury ([facility]) 09/20/2023 Resolved Problems No resolved problems to [...] kidney injury on CKD stage 4 requiring UNIT ASSISTANT Received 2 sessions of hemodialysis 09/21, 09/22 [...] convenience, so we can correct any mistakes. [facility] [address] [place] [address] PROGRESS NOTE Harris Castrejon patient was seen [...] Hx of atrial flutter s/p RFA 2020 Whch-nv-yyetbnme MR, moderate TR Moderate nonobstructive CAD - [facility] 01/2021 ITP Acute kidney injury Diabetes mellitus [...] This note was completed using a voice biodiesel production technician system. Every effort was made to ensure accuracy. However, inadvertent computerized biodiesel production technician errors may be present. Urology Progress Note [...] Oral (!) 143 -- 94 % -- 10/02/23 030 99/71 -- -- (!) 130 -- -- -- 10/02/235 96 36.8 C (98.2 F) -- (!) 133 -- 95 % -- 10/01/23 2315 -- -- -- (!) 137 -- -- -- 10/01/232005 92/ 36.4 C (97.5 F) Oral (!) 130 20 97 % -- Intake/Output Summary (Last 24 hours) at 10/02/2023 1749 Last data filed at 10/02/2023 0516 Gross per 24 hour Intake -- Output 1000 ml Net -1000 ml Results from last 7 days Lab Units 10/02/23 1447 10/02/23 0806 10/02/23 0810/01/23 0837 10/01/23 0620 09/30/23 1530 09/30/23 1526 [...] last 7 days Lab Units 10/02/23 0810/01/23 1730 10/01/23 0620 09/30/23 0315 WBC X10E9/L [...] BECERRA 10/02/23 5:56 PM KAVYA Becerra 10/02/23 1756 Images from the original note were not [...] congestive heart failure with EF of 40-45%, fvjz-wn-bsmywpro MR and moderate TR Anemia, on Aranesp [...] tube LILIA COX MD [facility] ANY QUESTIONS FEEL FREE TO CALL: 1. OFFICE [phone] 2. ANSWERING SERVICE:[phone] This note was created with the assistance of a speech-recognition program. Although the intention is to generate a document that actually reflects the content of the visit, no guarantees can be provided that every mistake has been identified and corrected by editing. Images from the original note were not included. [facility] 10/02/2023 Patient Name: [...] 02/16/2021 Performed by Kelli Su MD at [facility] CARDIAC CATH LABS Caval Tricuspid Isthmus RFA, Carto w/ICE N/A 03/21/2021 Performed by Lurdes Weinberg MD at [facility] (EP) Coronary angiogram and left ventricular gram/pressure N/A 02/16/2021 Performed by Kelli Su MD at [facility] CARDIAC CATH LABS Coronary fractional flow reserve N/A 02/16/2021 Performed by Kelli Su MD at [facility] CARDIAC CATH LABS Intravascular pressure measurement first vessel each additional vessel (fractional flow reserve) N/A 02/16/2021 Performed by Kelli Su MD at [facility] CARDIAC CATH LABS MYRINGOTOMY W/ TUBES TONSILLECTOMY [...] Component Value Units Date/Time Blood culture #2 [[id number]] (Abnormal) Collected: 09/27/23 0538 Specimen: Blood Updated: 09/29/23 1037 Culture STAPHYLOCOCCUS, COAGULASE NEGATIVE NOT S.LUGDUNENSIS POSSIBLE COLLECTION CONTAMINATION. SINGLE POSITIVE CULTURE IS OF UNCERTAIN CLINICAL SIGNIFICANCE. SUGGEST CONTINUED MONITORING OF REMAINING BLOOD CULTURES. CONTACT MICROBIOLOGY IF FURTHER INFORMATION IS REQUIRED. Staphylococcus species detected by PCR (not S. aureus, S.epidermidis, or S.lugdunensis). Blood culture #1 [[id number]] Collected: 09/27/23 0431 Specimen: Blood Updated: 10/02/23 0546 Specimen Notes ONLY AEROBIC BOTTLE RECEIVED, SUBOPTIMAL VOLUME OF BLOOD COLLECTED, RESULTS MAY BE AFFECTED Culture NO GROWTH 5 DAYS Urine culture [[id number]] Collected: 09/27/23 0405 Specimen: Urine Updated: 09/28/23 [...] Problems Diagnosis Date Noted Acute kidney injury ([facility]) 09/20/2023 Resolved Problems No resolved problems to [...] kidney injury on CKD stage 4 requiring UNIT ASSISTANT Received 2 sessions of hemodialysis 09/21, 09/22 [...] from the original note were not included. [facility] [address] [place] [address] PROGRESS NOTE Harris Castrejon denies any chest [...] 7 days Lab Units 10/01/23 1730 10/01/23 0609/30/23314 PROTIME sec 19.4* 18.3* 21.8* INR 1.7* 1.6* 1.9* APTT: MAG: Results from last 7 days Lab Units 10/01/23 0620 09/30/2331409/29/23223 MAGNESIUM mg/dL 2.5 1.9 1.8 D Dimer: [...] 40-45% per TTE 09/04/2023 Nonobstructive CAD per [facility] in 2020 with negative IFR but did [...] This note was completed using a voice biodiesel production technician system. Every effort was made to ensure accuracy. However, inadvertent computerized biodiesel production technician errors may be present. Amrita Lira PA-C [...] congestive heart failure with EF of 40-45%, akxk-xb-ukmofojy MR and moderate TR Anemia, on Aranesp [...] tube LILIA COX MD [facility] ANY QUESTIONS FEEL FREE TO CALL: 1. OFFICE [phone] 2. ANSWERING SERVICE:[phone] This note was created with the assistance of a speech-recognition program. Although the intention is to generate a document that actually reflects the content of the visit, no guarantees can be provided that every mistake has been identified and corrected by editing. Images from the original note were not included. [facility] Progress Note 10/01/2023 Patient Name: [...] L5 Obesity Systolic and diastolic CHF, acute ([facility]) 09/03/2023 Visual impairment Past Surgical History: Procedure Laterality Date Cardiac catheterization 02/16/2021 Performed by Kelli Su MD at [facility] CARDIAC CATH [facility]S Caval Tricuspid Isthmus RFA, Carto w/ICE N/A 03/21/2021 Performed by Lurdes Weinberg MD at [facility] HR (EP) Coronary angiogram and left ventricular gram/pressure N/A 02/16/2021 Performed by Kelli Su MD at [facility] CARDIAC CATH [facility]S Coronary fractional flow reserve N/A 02/16/2021 Performed by Kelli Su MD at [facility] C[facility]IAC CATH LABS Intravascular pressure measurement first vessel each additional vessel (fractional flow reserve) N/A 02/16/2021 Performed by Kelli Su MD at [facility] CARDIAC CATH LABS MYRINGOTOMY W/ TUBES TONSILLECTOMY [...] Component Value Units Date/Time Blood culture #2 [[id number]] (Abnormal) Collected: 09/27/23 0538 Specimen: Blood Updated: 09/29/23 1037 Culture STAPHYLOCOCCUS, COAGULASE NEGATIVE NOT S.LUGDUNENSIS POSSIBLE COLLECTION CONTAMINATION. SINGLE POSITIVE CULTURE IS OF UNCERTAIN CLINICAL SIGNIFICANCE. SUGGEST CONTINUED MONITORING OF REMAINING BLOOD CULTURES. CONTACT MICROBIOLOGY IF FURTHER INFORMATION IS REQUIRED. Staphylococcus species detected by PCR (not S. aureus, S.epidermidis, or S.lugdunensis). Blood culture #1 [[id number]] Collected: 09/27/23 0431 Specimen: Blood Updated: 10/01/23 0546 Specimen Notes ONLY AEROBIC BOTTLE RECEIVED, SUBOPTIMAL VOLUME OF BLOOD COLLECTED, RESULTS MAY BE AFFECTED Culture NO GROWTH 4 DAYS Urine culture [[id number]] Collected: 09/27/23 0405 Specimen: Urine Updated: 09/28/23 [...] Problems Diagnosis Date Noted Acute kidney injury ([facility]) 09/20/2023 Resolved Problems No resolved problems to [...] kidney injury on CKD stage 4 requiring UNIT ASSISTANT Received 2 sessions of hemodialysis 09/21, 09/22 [...] from the original note were not included. [facility] [address] [place] [address] PROGRESS NOTE Harris Castrejon was seen examined [...] last 7 days Lab Units 10/01/23 0609/30/2331409/29/23223 PROTIME sec 18.3* 21.8* 23.5* INR 1.6* 1.9* 2.1* APTT: MAG: Results from last 7 days Lab Units 10/01/23 0620 09/30/2331409/29/23223 MAGNESIUM mg/dL 2.5 1.9 1.8 D Dimer: [...] Hx of atrial flutter s/p RFA 2020 Yuwv-zv-qfjuomct MR, moderate TR Moderate nonobstructive CAD - [facility] 01/2021 ITP Acute kidney injury Diabetes mellitus [...] This note was completed using a voice biodiesel production technician system. Every effort was made to ensure accuracy. However, inadvertent computerized biodiesel production technician errors may be present. Images from the original note were not included. Rapid Response Event Note Patient: Harris Castrejon : 1955 Age: 68 y.o. Length of Stay: 11 days Admission Diagnosis: Acute kidney injury ([facility]) [N17.9] SITUATION Time of Call: 1934 Arrival Time: 1944 Rapid Response called due to Soft blood pressures with Afib RVR, HR 100-140 BACKGROUND Past Medical History: Diagnosis Date Arrhythmia Hypertension Injury of back Disc L4 and L5 Obesity Systolic and diastolic CHF, acute ([facility]) 09/03/2023 Visual impairment ASSESSMENT Upon my arrival, [...] pt. Proamitine as scheduled, & notify Cardiology battery container tester aluminum. Asked RN to call with any further concerns. End of Call: 2004 Thank you, Samanta Molina RN Rapid Response: [facility] Images from the original note were [...] 12 DEDE RIVERA D.O. [facility] Thank you for your consultation and allowing us to participate in the care of Harris Castrejon and please do not hesitate to call us with any questions at: Office: [phone] Office Answering Service: [phone] Please feel free to contact me through [email or web address] Secure chat during the daytime hours, if [...] original note were not included. [facility] Progress Note 09/30/2023 Patient Name: [...] clear, MMM. Neck supple. No JVD. CV: Uryh-ua-vrdztnjy tachycardia, irregularly irregular rhythm, no m/r/g. Radial/DP/PT [...] chronic systolic heart failure with LVEF 40-45%, fgiv-oc-dtczzpmj MR/TR # nonobstructive CAD # persistent atrial fibrillation with rapid ventricular response, formerly on warfarin anticoagulation (held) # class 3 obesity # DM2, apw-iwwwmgs-mqwcfoqyq # UTI # acute metabolic encephalopathy with [...] post acute care facility needs; patient requesting FMLA paperwork to be completed, advised to bring to hospital Electronically signed by: Reginald Resendiz MD [facility] Gastroenterology/Hepatology Progress Note IDENTIFYING DATA PATIENT: Harris [...] prn Discussed w/ attending physician NICOLAS Rascon [facility] [address] [address] PH: [phone] NICOLAS Davalos 09/30/23 1425 Images from the original note were not included. [facility] [address] [place] [address] PROGRESS NOTE Harris Castrejon currently getting washed [...] from last 7 days Lab Units 09/29/2322309/28/23 04209/27/23311 WBC X10E9/L 9.4 10.9 18.7* HEMOGLOBIN g/dL 7.8* 7.5* 8.1* HEMATOCRIT % 24.2* 23.2* 24.8* MCV fL 96 96 95 PLATELETS X10E9/L 100* 81* 69* BMP: Results from last 7 days Lab Units 09/29/2322309/28/23 02309/27/23311 SODIUM mmol/L 150* 148* 146 POTASSIUM mmol/L [...] kg (252 lb) Vitals: Vitals: 09/29/23 1900 09/29/23199909/29/23201109/29/23 2100 BP: 101/61 (!) 88/43 97/82 100/83 [...] This note was completed using a voice biodiesel production technician system. Every effort was made to ensure accuracy. However, inadvertent computerized biodiesel production technician errors may be present. Magdi Dailey PA-C [...] 40-45% Nonobstructive atherosclerotic heart disease of the [place] coronary arteries without angina pectoris Acute respiratory [...] This note was completed using a voice biodiesel production technician system. Every effort was made to ensure accuracy. However, inadvertent computerized biodiesel production technician errors may be present. Images from the [...] 09/29/2322309/28/23 0420 09/27/2331109/26/23 2350 09/26/23 0300 09/25/23 031 WBC X10E9/L 9.4 10.9 18.7* -- 11.3* 10.5 HEMOGLOBIN g/dL 7.8* 7.5* 8.1* 7.4* 7.7* 7.9* HEMATOCRIT % 24.2* 23.2* 24.8* 23.0* 23.4* 24.1* PLATELETS X10E9/L 100* 81* 69* -- 36* 37* Results from last 7 days Lab Units 09/29/2322309/28/23 0230 09/27/2331109/25/23 0315 09/24/23 0428 TOTAL PROTEIN g/dL 6.4 [...] chloride Ulisses Silver M.D. [facility] Thank you for your consultation and allowing us to participate in the care of Harris Castrejon and please do not hesitate to call us with any questions at: Office: [phone] Office Answering Service: [phone] Please feel free to contact me through [email or web address] Secure chat during the daytime hours, if [...] systolic congestive heart failure with EF 40-45%, qkwd-fa-nsayuhwc MR and moderate TR GI bleed with [...] is just a continual money grab by [employer]. He raised his voice and began arguing about a previous hospitalizations billing charges. Salbador Howell, [employer] WAREHOUSE MANAGER-PRODUCT GRADER Subjective Patient states that she feels fine and has no current issues. She states that she feels like she is ready to go home. She denies any chest pain, fever, chills, nausea, vomiting, shortness a breath. Hospital Problem: Principal Problem: Acute kidney injury ([facility]) OBJECTIVE: Lungs: effort normal breath sounds normal [...] last 3 days Lab Units 09/29/2322309/28/23 0230 09/27/23 031 INR 2.1* 2.0* 2.3* PROTIME sec 23.5* [...] Component Value Units Date/Time Blood culture #2 [[id number]] (Abnormal) Collected: 09/27/23537 Specimen: Blood Updated: 09/28/23336 Culture GRAM POSITIVE COCCI IN CLUSTERS CULTURE IN PROGRESS Staphylococcus species detected by PCR (not S. aureus, S.epidermidis, or S.lugdunensis). Blood culture #1 [[id number]] Collected: 09/27/23430 Specimen: Blood Updated: 09/29/23 0546 Specimen Notes ONLY AEROBIC BOTTLE RECEIVED, SUBOPTIMAL VOLUME OF BLOOD COLLECTED, RESULTS MAY BE AFFECTED Culture NO GROWTH 2 DAYS Urine culture [[id number]] Collected: 09/27/23 0405 Specimen: Urine Updated: 09/28/23 0701 Specimen Notes URINE RECEIVED WITHOUT PRESERVATIVE Culture NO GROWTH AT <1000 CFU/mL Urine culture [[id number]] Collected: 09/23/23 2110 Specimen: Urine Updated: 09/24/23 [...] Component Value Units Date/Time Blood culture #2 [[id number]] (Abnormal) Collected: 09/27/23537 Specimen: Blood Updated: 09/28/23336 Culture GRAM POSITIVE COCCI IN CLUSTERS CULTURE IN PROGRESS Staphylococcus species detected by PCR (not S. aureus, S.epidermidis, or S.lugdunensis). Blood culture #1 [[id number]] Collected: 09/27/23430 Specimen: Blood Updated: 12/31/23 0546 Specimen Notes ONLY AEROBIC BOTTLE RECEIVED, SUBOPTIMAL VOLUME OF BLOOD COLLECTED, RESULTS MAY BE AFFECTED Culture NO GROWTH 2 DAYS Urine culture [[id number]] Collected: 09/27/23 0405 Specimen: Urine Updated: 09/28/23 0701 Specimen Notes URINE RECEIVED WITHOUT PRESERVATIVE Culture NO GROWTH AT <1000 CFU/mL Urine culture [[id number]] Collected: 09/23/23 2110 Specimen: Urine Updated: 09/24/23 1633 Culture NO GROWTH AT <1000 CFU/mL Ventilator Settings Vent Mode: S/T FiO2 (%): 40 % Resp Rate (Set): 8 Insp Time (sec): 1 sec Insp Rise Time (%): 3 % IPAP: 14 EPAP: 6 Invasive Hemodynamic [place] Lines/Drains Hemodialysis Catheter Triple 09/21/23 Right Internal Jugular (Active) Precautions Standard precautions;Hand hygiene;Gloves 09/29/23399 Lumen 1 Blue 09/29/23 0400 Lumen 1 Status Other (Comment) 09/29/23 040 Lumen [address] 09/29/23399 Lumen 2 Red 09/29/23 0400 Lumen 2 Status Other (Comment) 09/29/23399 Lumen [address] 09/29/23399 Lumen 3 Pigtail 09/29/23399 Lumen 3 Status Infusing;Alcohol sponge cap maintained;Connections checked/tightened 09/29/23399 Lumen 3 Pigtail Needleless Cap Change Completed 09/29/23 0200 Lumen 3 Pigtail Needleless Cap Change Due 10/03/23 09/29/23 0200 HD Status Citrate Locked 09/29/23399 Site Assessment [...] Status Infusing;Alcohol sponge cap maintained;Connections checked/tightened 09/29/23 0400 Site Assessment Clean;Dry;Intact 09/29/23 040 Dressing Type Occlusive;Transparent 09/29/23 0400 Dressing Status Clean;Dry;Intact 09/29/23 0400 Dressing Intervention Dressing changed 09/27/23 1600 Dressing Change Due (Non-Gauze) 10/04/23 09/27/23 1600 Peripheral IV 09/20/23 Anterior;Left Forearm (Active) Line Status Saline locked;Alcohol sponge cap maintained;Connections checked/tightened 09/29/23 040 Site Assessment Clean;Dry;Intact 09/29/23 0400 Dressing Type Occlusive;Transparent 09/29/23 040 Dressing Status Clean;Dry;Intact 09/29/23 0400 Dressing Intervention Initial dressing 09/27/23 0200 Dressing Change Due (Non-Gauze) 09/27/23 09/20/23 1945 Urinary Catheter 09/20/23 (Active) Catheter Status Patent 09/29/23 040 Site Assessment Clean;Skin intact 09/29/23 040 Collection Container Standard drainage bag/container 09/29/23 040 Securement Method Securing device (Describe);Tube rolon;Secured left 09/29/23 040 Tamper Evident Seal Intact Yes 09/29/23 040 Reason for Continuing Strict I&O in critically ill patient 09/29/23 040 Urine Color Yellow/straw 09/29/23 0400 Urine Appearance Hazy;Sediment 09/29/23 0400 Output (mL) [...] mL sodium chloride 0.9 %, 250 mL NICOLAS Webb [] This patient, with a critical illness, requires constant monitoring and titration of care by a Critical Care Photo Mask Processor. Failure to do so may result in further organ system failure, imminent deterioration, or . NICOLAS Webb 09/29/23 1037 [facility] Gastroenterology/Hepatology Progress Note IDENTIFYING DATA PATIENT: Harris [...] INR<1.5 D/w GI attending Nayana Murrieta PA-C [facility] [place] [address] [place] Line [phone] PH: [phone] KAVYA Faulkner 09/29/23 0940 Images from the original note were not included. [facility] [address] [place] [address] PROGRESS NOTE Harris Castrejon it is resting [...] 7 days Lab Units 09/28/23 0420 09/27/23 0312 09/26/23 2350 09/26/23 0300 WBC X10E9/L 10.9 18.7* -- 11.3* HEMOGLOBIN g/dL 7.5* 8.1* 7.4* 7.7* HEMATOCRIT % 23.2* 24.8* 23.0* 23.4* MCV fL 96 95 -- 93 PLATELETS X10E9/L 81* 69* -- 36* BMP: Results from last 7 days Lab Units 09/28/23 0230 09/27/2331109/26/23 19209/26/23 0300 SODIUM mmol/L 148* 146 -- 144 [...] from last 7 days Lab Units 09/28/23 02309/27/232 09/26/23 0300 PROTIME sec 22.9* 25.5* 24.3* INR 2.0* 2.3* 2.1* APTT: MAG: Results from last 7 days Lab Units 09/28/23 02309/27/232 09/26/23 0300 MAGNESIUM mg/dL 2.0 2.1 2.2 D [...] 40-45% per TTE 09/04/2023 Nonobstructive CAD per [facility] Acute hypoxemic respiratory failure secondary to #2 [...] This note was completed using a voice biodiesel production technician system. Every effort was made to ensure accuracy. However, inadvertent computerized biodiesel production technician errors may be present. Amrita Lira PA-C 09/29/23 0044 [facility] I have personally performed a [...] 40-45% Nonobstructive atherosclerotic heart disease of the [place] coronary arteries without angina pectoris Acute respiratory [...] This note was completed using a voice biodiesel production technician system. Every effort was made to ensure accuracy. However, inadvertent computerized biodiesel production technician errors may be present. Images from the [...] L5 Obesity Systolic and diastolic CHF, acute ([facility]) 09/03/2023 Visual impairment PAST SURGERY HISTORY: Past Surgical History: Procedure Laterality Date Cardiac catheterization 02/16/2021 Performed by Kelli Su MD at [facility] CARDIAC CATH [facility]S Caval Tricuspid Isthmus RFA, Carto w/ICE N/A 03/21/2021 Performed by Lurdes Weinberg MD at [facility] HR (EP) Coronary angiogram and left ventricular gram/pressure N/A 02/16/2021 Performed by Kelli Su MD at [facility]ATH [facility] Coronary fractional flow reserve N/A 02/16/2021 Performed by Kelli Su MD at [facility]ATH [facility] Intravascular pressure measurement first vessel each additional vessel (fractional flow reserve) N/A 02/16/2021 Performed by Kelli Su MD at [facility]ATH [facility] MYRINGOTOMY W/ TUBES TONSILLECTOMY [...] 3 Pigtail Needleless Cap Change Completed 09/25/23 0130 Lumen 3 Pigtail Needleless Cap Change Due 09/29/23 09/25/23 0130 HD Status Citrate Locked 09/28/23 08 Site Assessment Clean;Dry;Intact 09/28/23 08 Site Condition No complications 09/28/23 08 Dressing Type Occlusive;Transparent with CHG gel 09/28/23 08 Dressing Status Clean;Dry;Intact 09/28/23 08 Dressing Intervention Dressing changed 09/26/23 1729 Line Necessity Dialysis 09/28/23 08 Line Necessity Reviewed With Nephrology 09/28/23 08 Patient tolerance of dressing change Tolerated well 09/28/23 08 Central Line Dressing Change Due (Non-Gauze) 10/03/23 09/26/23 1600 Peripheral IV 09/20/23 Right Forearm (Active) Line Status No blood return;Saline locked;Flushed;Infusing;Alcohol sponge cap changed;Connections checked/tightened 09/28/23 08 Site Assessment Clean;Dry;Intact 09/28/23799 Dressing Type Occlusive;Transparent 09/28/23 08 Dressing Status Clean;Dry;Intact 09/28/23799 Dressing [...] Catheter 09/20/23 (Active) Catheter Status Patent 09/28/23 08 Site Assessment Clean;Skin intact 09/28/23 08 Collection Container Standard drainage bag/container 09/28/23 08 Securement Method Securing device (Describe);Tube rolon;Secured left 09/28/23 08 Tamper Evident Seal Intact Yes 09/28/23 08 Reason for Continuing Strict I&O in critically ill patient 09/28/23 08 Urine Color Yellow/straw 09/28/23 08 Urine Appearance Hazy;Sediment 09/28/23799 Output (mL) 275 mL 09/28/23 1046 I/O [...] Component Value Units Date/Time Blood culture #2 [[id number]] (Abnormal) Collected: 09/27/23 0538 Specimen: Blood Updated: 09/28/23 0337 Culture GRAM POSITIVE COCCI IN CLUSTERS CULTURE IN PROGRESS Staphylococcus species detected by PCR (not S. aureus, S.epidermidis, or S.lugdunensis). Blood culture #1 [[id number]] Collected: 09/27/23 0431 Specimen: Blood Updated: 09/28/23 0546 Specimen Notes ONLY AEROBIC BOTTLE RECEIVED, SUBOPTIMAL VOLUME OF BLOOD COLLECTED, RESULTS MAY BE AFFECTED Culture NO GROWTH 1 DAY Urine culture [[id number]] Collected: 09/27/23 0405 Specimen: Urine Updated: 09/28/23 0701 Specimen Notes URINE RECEIVED WITHOUT PRESERVATIVE Culture NO GROWTH AT <1000 CFU/mL Urine culture [[id number]] Collected: 09/23/23 2110 Specimen: Urine Updated: 09/24/23 [...] premix), 4,000 mg, intravenous, PRN, Salbador Howell, TOBACCO WAREHOUSE MANAGER-PRODUCT GRADER metOLazone (ZAROXOLYN) tablet 10 mg, 10 mg, [...] EC tablet 40 mg, 40 mg, oral, [facility], KAVYA Rosario, 40 mg at 09/28/23 0612 phenylephrine (EDMOND-SYNEPHRINE) 100 mg in sodium chloride 0.9 % 250 mL (0.4 mg/mL) infusion, 0.5-2.5 mcg/kg/min, intravenous, Continuous, Danie Reid, TOBACCO WAREHOUSE MANAGER-PRODUCT GRADER, Stopped at 09/27/23 1331 potassium chloride (K-TAB,KLOR-CON) CR tablet 20 mEq, 20 mEq, oral, Q6H, Lilia Cox MD, 20 mEq at 09/28/23 0820 sennosides-docusate sodium (SENOKOT-S) 8.6-50 mg 2 tablet, 2 tablet, oral, Nightly, Samanta Wright MD, 2 tablet at 09/26/232025 sevelamer (RENVELA) tablet 800 mg, 800 mg, oral, TID with meals, Dede Miguel, , 800 mg at 09/28/23 0821 sodium chloride 0.9 % flush 10 mL, 10 mL, intravenous, Q96H, Shiraz Danny, TOBACCO WAREHOUSE MANAGER-PRODUCT GRADER, 10 mL at 09/25/23 1212 sodium chloride 0.9 % flush 10 mL, 10 mL, intravenous, PRN, Shiraz Danny, TOBACCO WAREHOUSE MANAGER-PRODUCT GRADER, 10 mL at 09/21/23 1153 sodium chloride 0.9 % flush 10 mL, 10 mL, intravenous, PRN, Shiraz Danny, TOBACCO WAREHOUSE MANAGER-PRODUCT GRADER, 10 mL at 09/21/23 1500 sodium chloride 0.9 % flush 10 mL, 10 mL, intravenous, Q96H, Shiraz Danny, TOBACCO WAREHOUSE MANAGER-PRODUCT GRADER, 10 mL at 09/25/23 1212 sodium chloride 0.9 % flush 10 mL, 10 mL, intravenous, PRN, Shiraz Danny, TOBACCO WAREHOUSE MANAGER-PRODUCT GRADER, 10 mL at 09/21/23 1153 sodium chloride 0.9 % flush 10 mL, 10 mL, intravenous, PRN, Shiraz Danny, TOBACCO WAREHOUSE MANAGER-PRODUCT GRADER, 10 mL at 09/21/23 1500 sodium chloride [...] mL, 2 mL, intravenous, PRN, Shiraz Danny, TOBACCO WAREHOUSE MANAGER-PRODUCT GRADER sodium chloride 0.9 % flush 3 mL, 3 mL, intravenous, Q12H, Tanner Harris MD, 3 mL at 09/28/23 0931 sodium chloride 0.9 % infusion, 10 mL/hr, intravenous, Continuous PRN, Salbador Howell, TOBACCO WAREHOUSE MANAGER-PRODUCT GRADER sodium chloride 0.9 % infusion, 10 mL/hr, intravenous, Continuous PRN, Salbador Howell TOBACCO WAREHOUSE MANAGER-PRODUCT GRADER, Stopped at 09/25/23 0130 sodium chloride 0.9 % infusion, 10 mL/hr, intravenous, Continuous PRN, Salbador Howell TOBACCO WAREHOUSE MANAGER-PRODUCT GRADER, Last Rate: 10 mL/hr at 09/28/23 1045, [...] mL, 2 mL, intravenous, Q96H, Shiraz Danny, TOBACCO WAREHOUSE MANAGER-PRODUCT GRADER, 2 mL at 09/25/23 1213 sodium citrate 4 % (3 mL) flush 2 mL, 2 mL, intravenous, PRN, Shiraz Danny, TOBACCO WAREHOUSE MANAGER-PRODUCT GRADER, 2 mL at 09/22/23 1151 sodium citrate 4 % (3 mL) flush 2 mL, 2 mL, intravenous, Q96H, Shiraz Danny, TOBACCO WAREHOUSE MANAGER-PRODUCT GRADER, 2 mL at 09/25/23 1213 sodium citrate 4 % (3 mL) flush 2 mL, 2 mL, intravenous, PRN, Shiraz Danny, TOBACCO WAREHOUSE MANAGER-PRODUCT GRADER, 2 mL at 09/22/23 1150 Anel Lara [...] last 7 days Lab Units 09/28/23 02309/27/2331109/26/23 19209/26/23 03009/25/2331409/24/23 0428 SODIUM mmol/L 148* 146 [...] from last 7 days Lab Units 09/28/23 02309/27/23312 08/27/23 0315 09/24/23 0428 09/23/23 0212 TOTAL PROTEIN [...] family Ulisses Silver M.D. [facility] Thank you for your consultation and allowing us to participate in the care of Harris Castrejon and please do not hesitate to call us with any questions at: Office: [phone] Office Answering Service: [phone] Please feel free to contact me through [email or web address] Secure chat during the daytime hours, if [...] from the original note were not included. [facility] Gurpreet Nagy M.D. Racquel Langston M.D. Sonya Ruelas M.D. Sunni Stack M.D. Tara Funes, TOBACCO WAREHOUSE MANAGER-[facility] Keron Stahl, TOBACCO WAREHOUSE MANAGER-PRODUCT GRADER Tiffanie Segal, TOBACCO WAREHOUSE MANAGER-PRODUCT GRADER Rufnia Nile, TOBACCO WAREHOUSE MANAGER-PRODUCT GRADER JUAN Brown M.D. Tc Ridley M.D. Reinaldo Felder M.D. Alfred Adams M.D. Carole Gaviria, TOBACCO WAREHOUSE MANAGER-PRODUCT GRADER Jenny Calhoun, TOBACCO WAREHOUSE MANAGER-PRODUCT GRADER Tian Dhaliwal, TOBACCO WAREHOUSE MANAGER-PRODUCT GRADER Yeny Medrano, TOBACCO WAREHOUSE MANAGER-PRODUCT GRADER Mendy Nielsen, TOBACCO WAREHOUSE MANAGER-[facility] Interval History/Subjective: Harris Castrejon was seen and examined. In bed. No acute complaints. ROS: 10+ review of system was performed and pertinent positive and negative findings are mentioned above in the HPI HPI (adapted from initial consult): Harris Castrejon is a 68 y.o. female with a PMHx of atrial fibrillation, HTN, CKD now on dialysis, CHF, and obesity. She presented to [facility] from [facility] with complaints of generalized weakness. She was recently admitted earlier in August and diagnosed with kidney disease, but was not on dialysis. Upon arrival to [place] ER, she was found to have an INR of 16.6, a creatinine of 6.52, while being hypotensive requiring pressor support. She was transferred to [facility] for further evaluation and management. During her [...] IVPB, 3,000 mg, intravenous, PRN, Salbador Howell APRN-PRODUCT GRADER cefTRIAXone (ROCEPHIN) 1,000 mg in sodium chloride 0.9 % 50 mL IVPB-MBP, 1,000 mg, intravenous, Q24H, Luly Marcial, NICOLAS, Stopped at 09/28/23 0621 darbepoetin stefania-polysorbate (ARANESP) injection 100 mcg, 100 mcg, subcutaneous, Weekly, Vidhit Miguel, DO, 100 mcg at 09/22/23 1348 dextrose (GLUTOSE) 40 % gel 15 g, 15 g, oral, PRNSalbador APRN-CNP dextrose 5 % (D5W) infusion, 100 mL/hr, [...] 1 mg, 1 mg, oral, Daily, Keron Sathl, NICOLAS, 1 mg at 09/28/23 0819 glucagon HCL [...] mg/mL) infusion, 0.5-2.5 mcg/kg/min, intravenous, Continuous, Danie Reid APRN-ALINA, Stopped at 09/27/23 1331 potassium chloride (K-TAB,KLOR-CON) [...] mL, 10 mL, intravenous, Q96H, Shiraz Delgado APRN-PRODUCT GRADER, 10 mL at 09/25/23 1212 sodium chloride 0.9 % flush 10 mL, 10 mL, intravenous, PRN, Shiraz Danny, TOBACCO WAREHOUSE MANAGER-PRODUCT GRADER, 10 mL at 09/21/23 1153 sodium chloride 0.9 % flush 10 mL, 10 mL, intravenous, PRN, Shiraz Danny, TOBACCO WAREHOUSE MANAGER-PRODUCT GRADER, 10 mL at 09/21/23 1500 sodium chloride 0.9 % flush 10 mL, 10 mL, intravenous, Q96H, Shiraz Danny, TOBACCO WAREHOUSE MANAGER-PRODUCT GRADER, 10 mL at 09/25/23 1212 sodium chloride 0.9 % flush 10 mL, 10 mL, intravenous, PRN, Shiraz Danny, TOBACCO WAREHOUSE MANAGER-PRODUCT GRADER, 10 mL at 09/21/23 1153 sodium chloride 0.9 % flush 10 mL, 10 mL, intravenous, PRN, Shiraz Danny, TOBACCO WAREHOUSE MANAGER-PRODUCT GRADER, 10 mL at 09/21/23 1500 sodium chloride [...] mL, 2 mL, intravenous, PRN, Shiraz Danny, TOBACCO WAREHOUSE MANAGER-PRODUCT GRADER sodium chloride 0.9 % flush 3 mL, 3 mL, intravenous, Q12H, Tanner Harris MD, 3 mL at 09/28/23 0931 sodium chloride 0.9 % infusion, 10 mL/hr, intravenous, Continuous PRN, Salbador Howell, TOBACCO WAREHOUSE MANAGER-PRODUCT GRADER sodium chloride 0.9 % infusion, 10 mL/hr, intravenous, Continuous PRN, Salbador Howell, TOBACCO WAREHOUSE MANAGER-PRODUCT GRADER, Stopped at 09/25/23 0130 sodium chloride 0.9 % infusion, 10 mL/hr, intravenous, Continuous PRN, Salbador Howell, TOBACCO WAREHOUSE MANAGER-PRODUCT GRADER, Last Rate: 10 mL/hr at 09/28/23 0624, [...] mL, 2 mL, intravenous, Q96H, Shiraz Danny, TOBACCO WAREHOUSE MANAGER-PRODUCT GRADER, 2 mL at 09/25/23 1213 sodium citrate 4 % (3 mL) flush 2 mL, 2 mL, intravenous, PRN, Shiraz Danny, TOBACCO WAREHOUSE MANAGER-PRODUCT GRADER, 2 mL at 09/22/23 1151 sodium citrate 4 % (3 mL) flush 2 mL, 2 mL, intravenous, Q96H, Shiraz Danny, TOBACCO WAREHOUSE MANAGER-PRODUCT GRADER, 2 mL at 09/25/23 1213 sodium citrate 4 % (3 mL) flush 2 mL, 2 mL, intravenous, PRN, Shiraz Danny, TOBACCO WAREHOUSE MANAGER-PRODUCT GRADER, 2 mL at 09/22/23 1150 Diagnosis Problem list: Patient Active Problem List Diagnosis Cerumen debris on tympanic membrane of both ears Typical atrial flutter ([facility]) Coronary artery disease involving [place] coronary artery of [place] heart without angina pectoris Tachycardia induced cardiomyopathy ([facility]) Type 2 diabetes mellitus with circulatory disorder, without long-term current use of insulin ([facility]) Other hyperlipidemia Paroxysmal atrial fibrillation ([facility]) BRANDEE (acute kidney injury) ([facility]) Hyperkalemia Bilateral lower extremity edema Systolic and diastolic CHF, acute ([facility]) Acute kidney injury ([facility]) Impression: Acute Hypoxic Respiratory Failure Paroxysmal Atrial [...] have underlying chronic ITP PF4 0.113 (negative) [id number] Activity is normal, unlikely TTP (no other [...] outpatient for continued monitoring (Dr Barnes in [place]). Our team will arrange. -If her platelet [...] physician on service today, Dr. Douglas Funes, TOBACCO WAREHOUSE MANAGER, AOCNP [facility] [address] [place] [address] Day time contact: After hours answering service: [phone] September 28, 2023, 10:16 AM I, Gurpreet [...] acute ITP, folic acid deficiency. PF4 (-). [id number] normal. Folate is low. B12 normal. Ferritin [...] from the original note were not included. [facility] [address] [place] [address] PROGRESS NOTE Harris Castrejon is resting comfortably [...] 7 days Lab Units 09/27/23 0312 09/26/23 1927 09/26/23 0300 09/25/23 0315 SODIUM mmol/L 146 -- 144 142 POTASSIUM mmol/L 3.7 3.5 3.4* 3.3* CHLORIDE mmol/L 104 -- 103 102 CO2 mmol/L 27 -- 24 BUN mg/dL 85* -- 78* 68* CREATININE [...] per 24 hour Intake 1536.68 ml Output 514859 ml Net -383122.32 ml General appearance: In no acute distress [...] 40-45% per TTE 09/04/2023 Nonobstructive CAD per [facility] Acute hypoxemic respiratory failure secondary to #2 [...] This note was completed using a voice biodiesel production technician system. Every effort was made to ensure accuracy. However, inadvertent computerized biodiesel production technician errors may be present. Amrita Lira PA-C 09/28/23 0229 [facility] I have personally performed [...] 40-45% Nonobstructive atherosclerotic heart disease of the [place] coronary arteries without angina pectoris Acute respiratory [...] This note was completed using a voice biodiesel production technician system. Every effort was made to ensure accuracy. However, inadvertent computerized biodiesel production technician errors may be present. Images from the [...] 113 (!) 124 114 Resp: 21 (!) 16 (!) 27 Temp: TempSrc: SpO2: 100% [...] 7 days Lab Units 09/27/2331109/26/23 1927 09/26/23 03009/25/2331409/24/23 0428 09/23/23 021 SODIUM mmol/L 146 -- 144 142 142 [...] from last 7 days Lab Units 09/27/2331109/25/2331409/24/23 04209/23/23 0212 09/20/23 1304 TOTAL PROTEIN g/dL 6.3 6.2 6.0 6.0 5.6* ALBUMIN g/dL 3.7 3.7 3.4 3.7 2.9* AST U/L 20 30 -- ALT U/L 18 12 13 [...] level Ulisses Silver M.D. [facility] Thank you for your consultation and allowing us to participate in the care of Harris Castrejon and please do not hesitate to call us with any questions at: Office: [phone] Office Answering Service: [phone] Please feel free to contact me through [email or web address] Secure chat during the daytime hours, if no response after 5 minutes then call the answering service. This note was created with the assistance of a speech-recognition program. Although the intention is to generate a document that actually reflects the content of the visit, no guarantees can be provided that every mistake has been identified and corrected by editing. [facility] Progress Note IDENTIFYING DATA PATIENT: Harris [...] oral, Daily, NICOLAS Chavez, 1 mg at 09/26/23 0817 glucagon HCL [...] infusion, 0.5-2.5 mcg/kg/min, intravenous, Continuous, Danie Reid, TOBACCO WAREHOUSE MANAGER-PRODUCT GRADER, Last Rate: 5.6 mL/hr at 09/27/23 1033, 0.3 mcg/kg/min at 09/27/23 1033 potassium chloride (K-TAB,KLOR-CON) CR tablet 20 mEq, 20 mEq, oral, Q6H, Lilia Cox MD, 20 mEq at 09/27/23 0140 sennosides-docusate sodium (SENOKOT-S) 8.6-50 mg 2 tablet, 2 tablet, oral, Nightly, Samanta Wright MD, 2 tablet at 09/26/232025 sevelamer (RENVELA) tablet 800 mg, 800 mg, oral, TID with meals, Dede Rivera, , 800 mg at 09/26/23 1717 sodium chloride 0.9 % flush 10 mL, 10 mL, intravenous, Q96H, Shiraz Delgado, TOBACCO WAREHOUSE MANAGER-PRODUCT GRADER, 10 mL at 09/25/23 1212 sodium chloride 0.9 % flush 10 mL, 10 mL, intravenous, PRN, Shiraz Delgado, TOBACCO WAREHOUSE MANAGER-PRODUCT GRADER, 10 mL at 09/21/23 1153 sodium chloride 0.9 % flush 10 mL, 10 mL, intravenous, PRN, Shiraz Delgado, TOBACCO WAREHOUSE MANAGER-PRODUCT GRADER, 10 mL at 09/21/23 1500 sodium chloride 0.9 % flush 10 mL, 10 mL, intravenous, Q96H, Shiraz Delgado, TOBACCO WAREHOUSE MANAGER-PRODUCT GRADER, 10 mL at 09/25/23 1212 sodium chloride 0.9 % flush 10 mL, 10 mL, intravenous, PRN, Shiraz Delgado, TOBACCO WAREHOUSE MANAGER-PRODUCT GRADER, 10 mL at 09/21/23 1153 sodium chloride 0.9 % flush 10 mL, 10 mL, intravenous, PRN, Shiraz Delgado APRN-PRODUCT GRADER, 10 mL at 09/21/23 1500 sodium chloride [...] mL, 2 mL, intravenous, PRN, Shiraz Delgado APRN-PRODUCT GRADER sodium chloride 0.9 % flush 3 mL, 3 mL, intravenous, Q12H, Tanner Harris MD, 3 mL at 09/27/23 0951 sodium chloride 0.9 % infusion, 10 mL/hr, intravenous, Continuous PRN, Salbador Howell APRN-ALINA sodium chloride 0.9 % infusion, 10 mL/hr, intravenous, Continuous PRN, Salbador Howell APRN-PRODUCT GRADER, Stopped at 09/25/23 0130 sodium chloride 0.9 % infusion, 10 mL/hr, intravenous, Continuous PRN, Salbador Howell APRN-PRODUCT GRADER, Stopped at 09/26/23 2107 sodium chloride 0.9 % infusion, 20 mL/hr, intravenous, Continuous PRN, Tanner Harris MD, Stopped at 09/27/23 0623 sodium chloride 0.9 % infusion, 250 mL, hemodialysis, Continuous, Vidhit Miguel, DO sodium chloride 0.9 % infusion, 250 mL, hemodialysis, Continuous, Vidhit Miguel, DO sodium citrate 4 % (3 mL) flush 2 mL, 2 mL, intravenous, Q96H, Shiraz Delgado APRN-PRODUCT GRADER, 2 mL at 09/25/23 1213 sodium citrate 4 % (3 mL) flush 2 mL, 2 mL, intravenous, PRN, Shiraz Delgado APRN-PRODUCT GRADER, 2 mL at 09/22/23 1151 sodium citrate 4 % (3 mL) flush 2 mL, 2 mL, intravenous, Q96H, Shiraz Delgado, TOBACCO WAREHOUSE MANAGER-PRODUCT GRADER, 2 mL at 09/25/23 1213 sodium citrate 4 % (3 mL) flush 2 mL, 2 mL, intravenous, PRN, Shiraz Delgado, TOBACCO WAREHOUSE MANAGER-PRODUCT GRADER, 2 mL at 09/22/23 1150 PRNs: calcium [...] Results from last 7 days Lab Units 09/27/2331109/25/235 09/24/23 0428 AST U/L 20 19 23 ALT [...] Component Value Units Date/Time Blood culture #2 [[id number]] Resulted: 09/27/23538 Specimen: Blood, Peripheral Draw Updated: 09/27/23538 Urine culture [[id number]] Resulted: 09/27/23529 Specimen: Urine Updated: 09/27/23537 Blood culture #1 [[id number]] Resulted: 09/27/23431 Specimen: Blood, Peripheral Draw Updated: 09/27/23431 Urine culture [[id number]] Collected: 09/23/230 Specimen: Urine Updated: 09/24/23 1633 Culture NO GROWTH AT <1000 CFU/mL ASSESSMENT AND PLAN Harris Castrejon is a [...] workup. Discussed with GI attending [facility] [address] PH: [phone] KAVYA mAos 09/27/23 6437 CRITICAL CARE PROGRESS NOTE Name: Harris Castrejon [...] Component Value Units Date/Time Blood culture #2 [[id number]] Resulted: 09/27/23538 Specimen: Blood, Peripheral Draw Updated: 09/27/23538 Urine culture [[id number]] Resulted: 09/27/23529 Specimen: Urine Updated: 09/27/23537 Blood culture #1 [[id number]] Resulted: 09/27/23431 Specimen: Blood, Peripheral Draw Updated: 09/27/23431 Urine culture [[id number]] Collected: 09/23/232109 Specimen: Urine Updated: 09/24/23 163 [...] 09/29/23 09/25/23 013 HD Status Citrate Locked 09/27/23729 Site Assessment [...] Clean;Intact;Dry 09/27/23729 Dressing Intervention Initial dressing 09/27/23 020 Dressing Change Due (Non-Gauze) 09/27/23 09/20/23 0021 Peripheral IV 09/20/23 Anterior;Left Forearm (Active) Line Status No blood return;Saline locked;Flushed;Alcohol sponge cap changed;Connections checked/tightened 09/27/23729 Site Assessment Clean;Dry;Intact 09/27/23729 Dressing Type Occlusive;Transparent 09/27/23729 Dressing Status Clean;Dry;Intact 09/27/23729 Dressing Intervention Initial dressing 09/27/23199 Dressing Change Due (Non-Gauze) 09/27/23 09/20/23 1945 [...] the presence of Dr. Hodgson by Faith PAIZ, RN. Faith Stephens RN on 09/27/2023 9:08 [...] HODGSON MD, on 09/27/2023 at 1:53 PM [facility] Images from the original note were not included. [facility] Gurpreet Nagy M.D. Racquel Langston M.D. Steve Cuellar M.D. Tara Funes, TOBACCO WAREHOUSE MA[facility] Keron Stahl, TOBACCO WAREHOUSE MANAGERC[facility] Tiffanie Segal, TOBACCO WAREHOUSE MANAGERC[facility] Rufina Dowd, TOBACCO WAREHOUSE MANAGERC[facility] JUAN Brown M.D. Feng Jiang, M.D. Jeffrey Muler, M.D. Alfred Adams M.D. Carole Gaviria, TOBACCO WAREHOUSE MANAGERC[facility] Jenny Calhoun, TOBACCO WAREHOUSE MANAGERC[facility] Tian Dhaliwal, TOBACCO WAREHOUSE MANAGERC[facility] Yeny Medrano, TOBACCO WAREHOUSE MANAGERC[facility] Mendy Rodrigues, [facility] PROGRESS NOTE Subjective: [...] dialysis, CHF, and obesity. She presented to [facility] from [facility] with complaints of generalized weakness. She was recently admitted earlier in August and diagnosed with kidney disease, but was not on dialysis. Upon arrival to [place] ER, she was found to have an INR of 16.6, a creatinine of 6.52, while being hypotensive requiring pressor support. She was transferred to [facility] for further evaluation and management. During her [...] 50 mL IVPB, 3 mg, intravenous, BID, Vifaridehit Miguel, DO, Stopped at 09/26/23 0912 calcium gluconate [...] injection 100 mcg, 100 mcg, subcutaneous, Weekly, Vifaridehit Miguel, DO, 100 mcg at 09/22/23 1348 [...] 1 mg, 1 mg, oral, Daily, Keron Gtzxochitl, NICOLAS, 1 mg at 09/26/23 0817 glucagon [...] tablet 10 mg, 10 mg, oral, PRN, Viricardo Manzoi, DO, 10 mg at 09/22/23 0947 midodrine [...] 800 mg, oral, TID with meals, Dede Manzoi, DO, 800 mg at 09/26/23 1208 sodium chloride 0.9 % flush 10 mL, 10 mL, intravenous, Q96H, Shiraz Danny, TOBACCO WAREHOUSE MANAGER-PRODUCT GRADER, 10 mL at 09/25/23 1212 sodium chloride 0.9 % flush 10 mL, 10 mL, intravenous, PRN, Shiraz Danny, TOBACCO WAREHOUSE MANAGER-PRODUCT GRADER, 10 mL at 09/21/23 1153 sodium chloride 0.9 % flush 10 mL, 10 mL, intravenous, PRN, Shiraz Danny, TOBACCO WAREHOUSE MANAGER-PRODUCT GRADER, 10 mL at 09/21/23 1500 sodium chloride 0.9 % flush 10 mL, 10 mL, intravenous, Q96H, Shiraz Danny, TOBACCO WAREHOUSE MANAGER-PRODUCT GRADER, 10 mL at 09/25/23 1212 sodium chloride 0.9 % flush 10 mL, 10 mL, intravenous, PRN, Shiraz Danny, TOBACCO WAREHOUSE MANAGER-PRODUCT GRADER, 10 mL at 09/21/23 1153 sodium chloride 0.9 % flush 10 mL, 10 mL, intravenous, PRN, Shiraz Danny, TOBACCO WAREHOUSE MANAGER-PRODUCT GRADER, 10 mL at 09/21/23 1500 sodium chloride [...] mL, 2 mL, intravenous, PRN, Shiraz Delgado, TOBACCO WAREHOUSE MANAGER-PRODUCT GRADER sodium chloride 0.9 % flush 3 mL, 3 mL, intravenous, Q12H, Tanner Harris MD, 3 mL at 09/26/23 1102 sodium chloride 0.9 % infusion, 10 mL/hr, intravenous, Continuous PRN, Salbador Howell, TOBACCO WAREHOUSE MANAGER-PRODUCT GRADER sodium chloride 0.9 % infusion, 10 mL/hr, intravenous, Continuous PRN, Salbador Howell TOBACCO WAREHOUSE MANAGER-PRODUCT GRADER, Stopped at 09/25/23 0130 sodium chloride 0.9 % infusion, 10 mL/hr, intravenous, Continuous PRN, Salbador Howell TOBACCO WAREHOUSE MANAGER-PRODUCT GRADER, Last Rate: 10 mL/hr at 09/26/23 0635, [...] mL, 2 mL, intravenous, Q96H, Shiraz Danny, TOBACCO WAREHOUSE MANAGER-PRODUCT GRADER, 2 mL at 09/25/23 1213 sodium citrate 4 % (3 mL) flush 2 mL, 2 mL, intravenous, PRN, Shiraz Danny, TOBACCO WAREHOUSE MANAGER-PRODUCT GRADER, 2 mL at 09/22/23 1151 sodium citrate 4 % (3 mL) flush 2 mL, 2 mL, intravenous, Q96H, Shiraz Danny, TOBACCO WAREHOUSE MANAGER-PRODUCT GRADER, 2 mL at 09/25/23 1213 sodium citrate 4 % (3 mL) flush 2 mL, 2 mL, intravenous, PRN, Shiraz Danny, TOBACCO WAREHOUSE MANAGER-PRODUCT GRADER, 2 mL at 09/22/23 1150 Diagnosis Problem list: Patient Active Problem List Diagnosis Cerumen debris on tympanic membrane of both ears Typical atrial flutter (CMS-HCC) Coronary artery disease involving [place] coronary artery of [place] heart without angina pectoris Tachycardia induced cardiomyopathy ([facility]) Type 2 diabetes mellitus with circulatory disorder, without long-term current use of insulin ([facility]) Other hyperlipidemia Paroxysmal atrial fibrillation ([facility]) BRANDEE (acute kidney injury) ([facility]) Hyperkalemia Bilateral lower extremity edema Systolic and diastolic CHF, acute ([facility]) Acute kidney injury ([facility]) Assessment/Plan Impression: #. 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 Baseline appears to be > 100,000. - [id number] normal - PF4 negative - Peripheral smear [...] primary and consulted services. Patient lives in [place] and could follow up with Dr. Barnes [...] on service today, Dr. Nagy. Keron Stahl, TOBACCO WAREHOUSE MANAGER-PRODUCT GRADER [facility] [address] [place] [address] [email or web address] Chat is my preferred mode of contact. For after hours (evening, weekends, holidays) Hematology Oncology needs, please call the battery container tester aluminum service [phone]. Please ask for the MD battery container tester aluminum. September 26, 2023, 3:45 PM Gurpreet Lang [...] acute ITP, folic acid deficiency. PF4 (-). [id number] normal. Folate is low. B12 normal. Ferritin [...] 2 Coronary artery disease, cardiac catheterization in 2000 21 revealed proximal LAD to mid LAD [...] tomorrow Ulisses Silver M.D. [facility] Thank you for your consultation and allowing us to participate in the care of Harris Castrejon and please do not hesitate to call us with any questions at: Office: [phone] Office Answering Service: [phone] Please feel free to contact me through [email or web address] Secure chat during the daytime hours, if [...] of the ICU. Report was called to [facility], Dr. Scott. Critical Care will sign off on transfer. Thank you. EL Ruiz, PA-C [facility] 11:20 AM 09/26/23 KAVYA Rosario 09/26/23 1120 [facility] Gastroenterology/Hepatology Progress Note IDENTIFYING [...] meals, Vidhit Miguel, DO, 800 mg at 09/26/23 0818 sodium chloride 0.9 % flush 10 mL, 10 mL, intravenous, Q96H, Shiraz Danny, TOBACCO WAREHOUSE MANAGER-PRODUCT GRADER, 10 mL at 09/25/23 1212 sodium chloride 0.9 % flush 10 mL, 10 mL, intravenous, PRN, Shiraz Danny, TOBACCO WAREHOUSE MANAGER-PRODUCT GRADER, 10 mL at 09/21/23 1153 sodium chloride 0.9 % flush 10 mL, 10 mL, intravenous, PRN, Shiraz Danny, TOBACCO WAREHOUSE MANAGER-PRODUCT GRADER, 10 mL at 09/21/23 1500 sodium chloride 0.9 % flush 10 mL, 10 mL, intravenous, Q96H, Shiraz Danny, TOBACCO WAREHOUSE MANAGER-PRODUCT GRADER, 10 mL at 09/25/23 1212 sodium chloride 0.9 % flush 10 mL, 10 mL, intravenous, PRN, Shiraz Danny, TOBACCO WAREHOUSE MANAGER-PRODUCT GRADER, 10 mL at 09/21/23 1153 sodium chloride 0.9 % flush 10 mL, 10 mL, intravenous, PRN, Shiraz Danny, TOBACCO WAREHOUSE MANAGER-PRODUCT GRADER, 10 mL at 09/21/23 1500 sodium chloride [...] mL, 2 mL, intravenous, PRN, Shiraz Delgado TOBACCO WAREHOUSE MANAGER-PRODUCT GRADER sodium chloride 0.9 % flush 3 mL, 3 mL, intravenous, Q12H, Tanner Harris MD, 3 mL at 09/25/23 2245 sodium chloride 0.9 % infusion, 10 mL/hr, intravenous, Continuous PRN, Salbador Howell APRN-PRODUCT GRADER sodium chloride 0.9 % infusion, 10 mL/hr, intravenous, Continuous PRN, Salbador Howell APRN-PRODUCT GRADER, Stopped at 09/25/23 0130 sodium chloride 0.9 [...] mL, 2 mL, intravenous, Q96H, Shiraz Delgado TOBACCO WAREHOUSE MANAGER-PRODUCT GRADER, 2 mL at 09/25/23 1213 sodium citrate 4 % (3 mL) flush 2 mL, 2 mL, intravenous, PRN, Shiraz Delgado, TOBACCO WAREHOUSE MANAGER-PRODUCT GRADER, 2 mL at 09/22/23 1151 sodium citrate 4 % (3 mL) flush 2 mL, 2 mL, intravenous, Q96H, Shiraz Delgado, TOBACCO WAREHOUSE MANAGER-PRODUCT GRADER, 2 mL at 09/25/23 1213 sodium citrate 4 % (3 mL) flush 2 mL, 2 mL, intravenous, PRN, Shiraz Delgado, TOBACCO WAREHOUSE MANAGER-PRODUCT GRADER, 2 mL at 09/22/23 1150 sodium zirconium cyclosilicate (LOKELMA) packet 10 g, 10 g, oral, Daily with lunch, Salbador Howell APRN-PRODUCT GRADER, 10 g at 09/24/23 1200 PRNs: calcium [...] Procedure Component Value Units Date/Time Urine culture [[id number]] Collected: 09/23/23 2110 Specimen: Urine Updated: 09/24/23 1633 Culture NO GROWTH AT <1000 CFU/mL Blood culture [[id number]] Collected: 09/19/23 2342 Specimen: Blood Updated: 09/25/23 1029 Culture NO GROWTH 5 DAYS Blood culture [[id number]] Collected: 09/19/23 2329 Specimen: Blood Updated: 09/25/23 1025 Culture NO GROWTH 5 DAYS SARS/FLU A+B/RSV by NAAT/Molecular (M4RT Collection Tube) [[id number]] Collected: 09/19/23 232 Specimen: Nasopharynx Updated: 09/20/23 [...] declining -platelets 36 -INR 2.1 (>16 on 09/19), no warfarin since admission -fibrin split product [...] follow peripherally Discussed with GI attending Nola eRed PA-C [facility] [place] [address] PH: [phone] KAVYA Weiss 09/26/23 132 Images from the original note were not [...] RN and Dr. Wright. EL Ruiz, EDC [facility] Please feel free to contact me via Patient Touch. This patient, with a critical illness, requires constant monitoring and titration of care by a Critical Care Photo Mask Processor or CHALINO. Failure to do so may [...] Procedure Component Value Units Date/Time Urine culture [[id number]] Collected: 09/23/232109 Specimen: Urine Updated: 09/24/23 1633 Culture NO GROWTH AT <1000 CFU/mL Blood culture [[id number]] Collected: 09/19/232341 Specimen: Blood Updated: 09/25/23 1029 Culture NO GROWTH 5 DAYS Blood culture [[id number]] Collected: 09/19/232328 Specimen: Blood Updated: 09/25/23 1025 Culture NO GROWTH 5 DAYS SARS/FLU A+B/RSV by NAAT/Molecular (M4RT Collection Tube) [[id number]] Collected: 09/19/232325 Specimen: Nasopharynx Updated: 09/20/2328 FLU [...] %, 250 mL KAVYA Rosario 09/26/23 0955 [facility] Gastroenterology/Hepatology Progress Note SUBJECTIVE/INTERVAL HISTORY: Harris [...] intravenous, BID, Dede Rivera DO, Stopped at 09/25/23 0820 calcium gluconate IVPB [...] premix), 4,000 mg, intravenous, PRN, Salbador Howell APRN-ALINA metOLazone (ZAROXOLYN) tablet 10 mg, 10 mg, [...] mL, 10 mL, intravenous, Q96H, Shiraz Delgado APRN-PRODUCT GRADER, 10 mL at 09/25/23 1212 sodium chloride 0.9 % flush 10 mL, 10 mL, intravenous, PRN, Shiraz Delgado APRN-PRODUCT GRADER, 10 mL at 09/21/23 1153 sodium chloride 0.9 % flush 10 mL, 10 mL, intravenous, PRN, Shiraz Delgado, TOBACCO WAREHOUSE MANAGER-PRODUCT GRADER, 10 mL at 09/21/23 1500 sodium chloride 0.9 % flush 10 mL, 10 mL, intravenous, Q96H, Shiraz Danny, TOBACCO WAREHOUSE MANAGER-PRODUCT GRADER, 10 mL at 09/25/23 1212 sodium chloride 0.9 % flush 10 mL, 10 mL, intravenous, PRN, Shiraz Danny, TOBACCO WAREHOUSE MANAGER-PRODUCT GRADER, 10 mL at 09/21/23 1153 sodium chloride 0.9 % flush 10 mL, 10 mL, intravenous, PRN, Shiraz Danny, TOBACCO WAREHOUSE MANAGER-PRODUCT GRADER, 10 mL at 09/21/23 1500 sodium chloride [...] mL, 2 mL, intravenous, PRN, Shiraz Danny, TOBACCO WAREHOUSE MANAGER-PRODUCT GRADER sodium chloride 0.9 % flush 3 mL, 3 mL, intravenous, Q12H, Tanner Harris MD, 3 mL at 09/25/23 1208 sodium chloride 0.9 % infusion, 10 mL/hr, intravenous, Continuous PRN, Salbador Howell APRN-ALINA sodium chloride 0.9 % infusion, 10 mL/hr, intravenous, Continuous PRN, Salbador Howell APRN-PRODUCT GRADER, Stopped at 09/25/23 0130 sodium chloride 0.9 % infusion, 10 mL/hr, intravenous, Continuous PRN, Salbador Howell APRN-PRODUCT GRADER, Last Rate: 10 mL/hr at 09/25/23 0600, [...] mL, 2 mL, intravenous, Q96H, Shiraz Delgado, TOBACCO WAREHOUSE MANAGER-PRODUCT GRADER, 2 mL at 09/25/23 1213 sodium citrate 4 % (3 mL) flush 2 mL, 2 mL, intravenous, PRN, Shiraz Danny, TOBACCO WAREHOUSE MANAGER-PRODUCT GRADER, 2 mL at 09/22/23 1151 sodium citrate 4 % (3 mL) flush 2 mL, 2 mL, intravenous, Q96H, Shiraz Danny, TOBACCO WAREHOUSE MANAGER-PRODUCT GRADER, 2 mL at 09/25/23 1213 sodium citrate 4 % (3 mL) flush 2 mL, 2 mL, intravenous, PRN, Shiraz Delgado, TOBACCO WAREHOUSE MANAGER-PRODUCT GRADER, 2 mL at 09/22/23 1150 sodium zirconium cyclosilicate (LOKELMA) packet 10 g, 10 g, oral, Daily with lunch, Salbador Howell, TOBACCO WAREHOUSE MANAGER-PRODUCT GRADER, 10 g at 09/24/23 1200 PRNs: calcium [...] congestive heart failure with EF of 40-45%, pofl-pl-qiogkjay MR and moderate TR Anemia, on Aranesp [...] kcal) Fluid Restrictions: Fluid Restriction 1500 mL 09/21/2339 Labs: Results from last 7 days Lab [...] tube LILIA COX MD [facility] ANY QUESTIONS FEEL FREE TO CALL: 1. OFFICE [phone] 2. ANSWERING SERVICE:[phone] This note was created with the assistance [...] Procedure Component Value Units Date/Time Urine culture [[id number]] Collected: 09/23/232109 Specimen: Urine Updated: 09/24/23 1633 Culture NO GROWTH AT <1000 CFU/mL Blood culture [[id number]] Collected: 09/19/23 234 Specimen: Blood Updated: 09/24/23 1034 Culture NO GROWTH 4 DAYS Blood culture [[id number]] Collected: 09/19/232328 Specimen: Blood Updated: 09/24/23 1031 Culture NO GROWTH 4 DAYS SARS/FLU A+B/RSV by NAAT/Molecular (M4RT Collection Tube) [[id number]] Collected: 09/19/232325 Specimen: Nasopharynx Updated: 09/20/23 0029 [...] the presence of Dr. Wright by Faith GARNERN, RN. Faith Stephens RN on 09/25/2023 8:01 [...] congestive heart failure with EF of 40-45%, hehl-cc-ubjhksst MR and moderate TR Anemia, on Aranesp [...] kcal) Fluid Restrictions: Fluid Restriction 1500 mL 09/21/2339 Labs: Results from last 7 days Lab [...] tube LILIA COX MD [facility] ANY QUESTIONS FEEL FREE TO CALL: 1. OFFICE [phone] 2. ANSWERING SERVICE:[phone] This note was created with the assistance of a speech-recognition program. Although the intention is to generate a document that actually reflects the content of the visit, no guarantees can be provided that every mistake has been identified and corrected by editing. 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 Patient History: Admit Diagnosis: Patient Active Problem List Diagnosis Cerumen debris on tympanic membrane of both ears Typical atrial flutter ([facility]) Coronary artery disease involving [place] coronary artery of [place] heart without angina pectoris Tachycardia induced cardiomyopathy ([facility]) Type 2 diabetes mellitus with circulatory disorder, without long-term current use of insulin (CMS-HCC) Other hyperlipidemia Paroxysmal atrial fibrillation ([facility]) BRANDEE (acute kidney injury) ([facility]) Hyperkalemia Bilateral lower extremity edema Systolic and diastolic CHF, acute (CMS-HCC) Acute kidney injury (CMS-HCC) Past Medical History: Past Medical History: Diagnosis Date Arrhythmia Hypertension Injury of back Disc L4 and L5 Obesity Systolic and diastolic CHF, acute (CMS-HCC) 09/03/2023 Visual impairment Past Surgical History: Past Surgical History: Procedure Laterality Date Cardiac catheterization 02/16/2021 Performed by Kelli Su MD at [facility] CARDIAC CATH LABS Caval Tricuspid Isthmus RFA, Carto w/ICE N/A 03/21/2021 Performed by Lurdes Weinberg MD at [facility] HRC (EP) Coronary angiogram and left ventricular gram/pressure N/A 02/16/2021 Performed by Kelli Su MD at [facility]ATH [facility] Coronary fractional flow reserve N/A 02/16/2021 Performed by Kelli Su MD at [facility]ATH [facility] Intravascular pressure measurement first vessel each additional vessel (fractional flow reserve) N/A 02/16/2021 Performed by Kelli Su MD at [facility] CARDI[facility] CATH [facility]S MYRINGOTOMY W/ TUBES TONSILLECTOMY Social/ Cognitive/ Economic: Brief Clinical Summary: Per MD notes, past medical history significant for paroxysmal atrial fibrillation on warfarin, type 2 diabetes mellitus on home metformin use, CHF decreased EF of 40-45%, atrial flutter ablation on 03/21/2021, hypertension, and hyperlipidemia. She was recently discharged on 09/05/2023 following treatment for an BRANDEE. She presented to [place] [facility] on 09/19/2023 with complaints of [...] 09/23/23 1547 09/23/23 1155 09/23/23 0758 09/23/23 021 BEDSIDE GLUCOSE mg/dL 135* -- 115* 145* [...] (H) 09/13/2021 Lab Results Component Value Date [id number] 09/20/2023 Lab Results Component Value Date [...] premix) 1,000 mg intravenous PRN Salbador Howell APRN-PRODUCT GRADER Or calcium gluconate IVPB 2000 mg/100 mL [...] 25 g 25 g intravenous Once PRN Salbador Howell APRN-ALINA And dextrose 50 % in water (D50W) [...] injection 50 mg 50 mg intravenous Q12H PAUL Wright MD 50 mg at 09/24/23 0812 [...] mL 10 mL intravenous Q96H Shiraz Danny, TOBACCO WAREHOUSE MANAGER-PRODUCT GRADER sodium chloride 0.9 % flush 10 mL 10 mL intravenous PRN Shiraz Danny, TOBACCO WAREHOUSE MANAGER-PRODUCT GRADER 10 mL at 09/21/23 1153 sodium chloride 0.9 % flush 10 mL 10 mL intravenous PRN Shiraz Danny, TOBACCO WAREHOUSE MANAGER-PRODUCT GRADER 10 mL at 09/21/23 1500 sodium chloride 0.9 % flush 10 mL 10 mL intravenous Q96H Shiraz Danny, TOBACCO WAREHOUSE MANAGER-PRODUCT GRADER sodium chloride 0.9 % flush 10 mL 10 mL intravenous PRN Shiraz Danny, TOBACCO WAREHOUSE MANAGER-PRODUCT GRADER 10 mL at 09/21/23 1153 sodium chloride 0.9 % flush 10 mL 10 mL intravenous PRN Shiraz Danny, TOBACCO WAREHOUSE MANAGER-PRODUCT GRADER 10 mL at 09/21/23 1500 sodium chloride 0.9 % flush 10 mL 10 mL intravenous Q8H Shiraz Danny, TOBACCO WAREHOUSE MANAGER-PRODUCT GRADER 10 mL at 09/24/23 1217 And sodium citrate 4 % (3 mL) flush 2 mL 2 mL intravenous Q8H Shiraz Danny, TOBACCO WAREHOUSE MANAGER-PRODUCT GRADER And sodium chloride 0.9 % flush 10 mL 10 mL intravenous PRN Shiraz Danny, TOBACCO WAREHOUSE MANAGER-PRODUCT GRADER And sodium chloride 0.9 % flush 10 mL 10 mL intravenous PRN Shiraz Danny, TOBACCO WAREHOUSE MANAGER-PRODUCT GRADER 10 mL at 09/24/23 0538 And sodium citrate 4 % (3 mL) flush 2 mL 2 mL intravenous PRN Shiraz Danny, TOBACCO WAREHOUSE MANAGER-PRODUCT GRADER sodium chloride 0.9 % flush 3 mL 3 mL intravenous Q12H Tanner Harris MD 3 mL at 09/24/23 1217 sodium chloride 0.9 % infusion 10 mL/hr intravenous Continuous PRN Salbador Howell, TOBACCO WAREHOUSE MANAGER-PRODUCT GRADER sodium chloride 0.9 % infusion 10 mL/hr intravenous Continuous PRN Salbador Howell, TOBACCO WAREHOUSE MANAGER-PRODUCT GRADER 10 mL/hr at 09/24/23 0600 Rate Verify at 09/24/23 0600 sodium chloride 0.9 % infusion 10 mL/hr intravenous Continuous PRN Salbador Matteder, TOBACCO WAREHOUSE MANAGER-PRODUCT GRADER Stopped at 09/24/23 0028 sodium chloride 0.9 % infusion 20 mL/hr intravenous Continuous PRN Tanner Harris MD sodium chloride 0.9 % infusion 250 mL hemodialysis Continuous Vidhit Miguel, DO sodium chloride 0.9 % infusion 250 mL hemodialysis Continuous Vidhit Miguel, DO sodium citrate 4 % (3 mL) flush 2 mL 2 mL intravenous Q96H Shiraz Danny, TOBACCO WAREHOUSE MANAGER-PRODUCT GRADER sodium citrate 4 % (3 mL) flush 2 mL 2 mL intravenous PRN Shiraz Danny, TOBACCO WAREHOUSE MANAGER-PRODUCT GRADER 2 mL at 09/22/23 1151 sodium citrate 4 % (3 mL) flush 2 mL 2 mL intravenous Q96H Shiraz Danny, TOBACCO WAREHOUSE MANAGER-PRODUCT GRADER sodium citrate 4 % (3 mL) flush 2 mL 2 mL intravenous PRN Shiraz Danny, TOBACCO WAREHOUSE MANAGER-PRODUCT GRADER 2 mL at 09/22/23 1150 sodium zirconium cyclosilicate (LOKELMA) packet 10 g 10 g oral Daily with lunch Salbador Howell, TOBACCO WAREHOUSE MANAGER-PRODUCT GRADER 10 g at 09/24/23 1200 Nutrition Focused Physical Findings chewing difficulty (no lower teeth); fair appetite, patient seems lose concentration in conversation. Extremities, Muscles, and Bones A. Muscle Loss - appears WNL B. 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 BMI Category: Obese class 3 (> or = 40.00) Comparative Standards: Estimated Energy Needs: 4091-2089 kcals daily. Method and weight used: 28-32 kcal/kg IBW Estimated Protein Needs: 68-86 grams daily. Method and weight used: 1.2-1.5g protein/kg IBW Estimated Fluid Needs: 1882-8722 ml daily. 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 NUTRITION INTERVENTIONS: Meals & snacks: encouraged trying soft foods, ordering chopped/ground meats Coordination of nutrition care: - will have patient try Nepro with Carbsteady 2x/day to provide 420 kcal and 19 g protein per serving. GOAL(S): meet estimated protein/kcal needs NUTRITION MONITORING AND EVALUATION: po intake, weight/lab trends, POC Jessica Wright RD, DAISY Clinical Dietitian Direct Line CRITICAL CARE PROGRESS [...] PF 4 AB Hemodialysis per Nephrology On [facility] On proamatine Steroid taper in place, [...] Procedure Component Value Units Date/Time Urine culture [[id number]] Resulted: 09/23/232206 Specimen: Urine Updated: 09/23/232214 Blood culture [[id number]] Collected: 09/19/232341 Specimen: Blood Updated: 09/23/23 1035 Culture NO GROWTH 3 DAYS Blood culture [[id number]] Collected: 09/19/239 Specimen: Blood Updated: 09/23/23 1031 Culture NO GROWTH 3 DAYS SARS/FLU A+B/RSV by NAAT/Molecular (M4RT Collection Tube) [[id number]] Collected: 09/19/23 2326 Specimen: Nasopharynx Updated: 09/20/23 [...] the presence of Dr. Wright by Faith Stephens BSN, RN. Faith Stephens RN on 09/24/2023 7:34 [...] congestive heart failure with EF of 40-45%, fzjo-ka-uiewxxkw MR and moderate TR Anemia, on Aranesp [...] %, 10 mL/hr, Last Rate: 10 mL/hr (09/23/23 06) sodium chloride 0.9 %, 10 mL/hr, Last Rate: 10 mL/hr (09/23/23 0648) sodium chloride 0.9 %, 20 mL/hr sodium [...] last 7 days Lab Units 09/23/23 0212 09/22/238 09/21/23 0510 WBC X10E9/L 8.5 8.3 10.0 HEMOGLOBIN g/dL 8.2* 8.5* 8.7* HEMATOCRIT % 24.9* 25.6* 26.9* PLATELETS X10E9/L 38* 45* 59* Results from last 7 days Lab Units 09/23/23 0212 09/22/238 09/21/23 0510 MAGNESIUM mg/dL 2.2 2.4 2.6 [...] tube LILIA COX MD [facility] ANY QUESTIONS FEEL FREE TO CALL: 1. OFFICE [phone] 2. ANSWERING SERVICE:[phone] This note was created with the assistance [...] Castrejon Age - 68 y.[facility]. [facility] 1955 [id number] Date of Admission - 09/20/2023 6:17 AM [...] from the original note were not included. [facility] Update Note Name: Harris [...] to monitor in ICU. GREER LEGGETT PA-C [facility] Please feel free [...] in outpatient dialysis to be arranged at [facility] before discharge Continue Renvela Continue low potassium [...] EF 40-45% with left ventricular hypertrophy noted. Xuxa-zv-hhzeowlb mitral regurgitation noted. Moderate tricuspid regurgitation noted. [...] FERRITIN 40 09/20/2023 Please contact me at [phone] (Office) or [phone] (Answering service) with any questions. Dede Rivera DO [facility] This note was created with the assistance of a speech-recognition program. Although the intention is to generate a document that actually reflects the content of the visit, no guarantees can be provided that every mistake has been identified and corrected by editing. Images from the original note were not included. [facility] Progress Note Name: Harris [...] discussed with Dr. Albertina LEGGETT PA-C [facility] Please feel free [...] Procedure Component Value Units Date/Time Blood culture [[id number]] Collected: 09/19/23 234 Specimen: Blood Updated: 09/21/23 1034 Culture NO GROWTH 1 DAY Blood culture [[id number]] Collected: 09/19/232328 Specimen: Blood Updated: 09/21/23 1031 Culture NO GROWTH 1 DAY SARS/FLU A+B/RSV by NAAT/Molecular (M4RT Collection Tube) [[id number]] Collected: 09/19/232325 Specimen: Nasopharynx Updated: 09/20/23 0029 [...] titration of care by a Critical Care Photo Mask Processor or CHALINO. Failure to do so may [...] 1:04 PM Result Value Ref Range [place] Baker Lt Chains 24.92 (H) 0.33 - 1.94 [...] Protein Urine Random 11,440 (H) <120 mg/L U/Pro/Shore Worker Ratio Calc 16.80 (H) <0.2 Urinalysis Collection [...] 1245 09/20/23 0805 09/20/23 0744 09/20/23 0630 09/19/232328 BEDSIDE GLUCOSE mg/dL 132* -- 139* 131* 138* 187* -- 190* -- GLUCOSE mg/dL -- 121* -- -- -- -- 183* -- 100* Microbiology Results Procedure Component Value Units Date/Time Blood culture [[id number]] Collected: 09/19/232341 Specimen: Blood Updated: 09/20/232233 Culture NO GROWTH <24 HRS Blood culture [[id number]] Collected: 09/19/232328 Specimen: Blood Updated: 09/20/232230 Culture NO GROWTH <24 HRS SARS/FLU A+B/RSV by NAAT/Molecular (M4RT Collection Tube) [[id number]] Collected: 09/19/232325 Specimen: Nasopharynx Updated: 09/20/23 0029 [...] EF 40-45% with left ventricular hypertrophy noted. Cbts-yu-yjvpfhgl mitral regurgitation noted. Moderate tricuspid regurgitation noted. [...] FERRITIN 40 09/20/2023 Please contact me at [phone] (Office) or [phone] (Answering service) with any questions. Dede Rivera DO [facility] This note was created with the [...] 16 96 % -- -- 09/21/23 0630 / -- -- 96 17 97 % [...] 14 97 % -- -- 09/21/23 0400 -- -- 87 17 97 % -- -- 09/21/23 0345 (!) 36.5 C (97.7 F) Oral 90 17 97 % -- -- 09/21/23 0336 -- -- -- 95 16 97 % -- -- 09/21/23 0330 / -- -- 81 15 97 % -- -- 09/21/23 0315 -- -- 91 16 97 % -- -- 09/21/23 0300 -- -- 93 15 98 % -- -- 09/21/23 0245 -- -- 88 17 97 % -- -- 09/21/23 0230 -- -- 97 21 96 % -- -- 09/21/23 0215 -- -- 91 14 95 % -- -- 09/21/23 0208 -- -- -- 82 17 97 % -- -- 09/21/23 0200 106/78 -- -- 102 17 97 % -- -- 09/21/23 0145 103/64 -- -- 92 17 94 % -- -- 09/21/230 96/ -- -- 85 17 98 % -- -- 09/21/235 101/ -- -- 94 18 98 % -- -- 09/21/23 0100 102/63 -- -- 90 17 98 % -- -- 09/21/235 100/ -- -- 79 15 98 % -- -- 09/21/23 0030 (!) -- -- 87 16 98 % -- -- 09/21/23 0015 94/ -- -- 86 15 98 % -- -- 09/21/23 0000 / -- -- 88 17 98 % -- -- 09/20/232354 -- -- -- 80 17 99 % -- -- 09/20/232344 97/70 36.4 C (97.5 F) Oral 84 16 98 % -- -- 09/20/232329 99/74 -- -- 94 15 98 % -- -- 09/20/232315 -- -- -- 93 16 99 % -- -- 09/20/232314 108/76 -- -- 89 16 99 % -- -- 09/20/23 230 103/ -- -- 89 17 100 % -- [...] 15 96 % -- -- 09/20/232029 (!) 89 -- -- 81 15 97 % -- [...] 97 % -- -- 09/20/23 1900 (!) -- -- 99 12 92 % -- -- 09/20/23 1845 93 -- -- 88 13 92 % -- -- 09/20/23 1800 91 -- -- 85 12 96 % -- -- 09/20/23 1700 93/ -- -- 69 13 98 % -- [...] issues Pily Lay MD Urology Resident, PGY-2 [facility] 10-05-2023 Miscellaneous Notes Problem: Pain Goal: Patient goal is pain score less than 4, able to rest, and participant in treatment plan as appropriate Description: INTERVENTIONS: 1. Encourage patient or legal field representatives director to report early pain and ask for [...] per policy 9. Teach patient or legal field representatives director interventions for comforting Outcome: Progressing Note: Evaluation [...] at the bedside 7. Instruct patient/ patient field representatives director about use of safety devices 8. Include patient/ patient field representatives director in decisions related to safety Outcome: Progressing Note: Evaluation of progress towards goal: pt will remain injury free this shift. Problem: Knowledge Deficit Goal: Patient/patient field representatives director demonstrates understanding of disease process, treatment plan, [...] 1200 BLS to home with family and [id number]. [facility] Patient and family have continued to decline SNF or home DME arrangements. BLS cert complete in discharge packet. Care Navigation will continue to follow for 10/05/23 8:42 AM Problem: Pain Goal: Patient goal is pain score less than 4, able to rest, and participant in treatment plan as appropriate Description: INTERVENTIONS: 1. Encourage patient or legal field representatives director to report early pain and ask for [...] per policy 9. Teach patient or legal field representatives director interventions for comforting Outcome: Progressing Note: Evaluation [...] at the bedside 7. Instruct patient/ patient field representatives director about use of safety devices 8. Include patient/ patient field representatives director in decisions related to safety Outcome: Progressing [...] hygiene technique 7. Identify and instruct patient/patient field representatives director in use of appropriate isolation precautions for identified infection/symptoms 8. Provide and discuss with patient/patient field representatives director on educational MDRO sheet 9. Encourage and monitor nutritional status daily and consult pt sitter if indicated 10. Implement neutropenic guidelines as [...] be free from fall Description: Interventions: 1. [place] to environment 2. Hourly rounds addressing the [...] non-skid footwear 11. Teach patient and patient field representatives director to maintain environment for safety and engage [...] (cane, walker) within reach 19. Request patient field representatives director bring adaptive equipment/mobility aids from home or obtain and provide as needed 20. Consult pharmacy regarding effects of med's affecting mobility, cognition, and alternatives 21. Obtain physician order for PT if risk factors associated with mobility are present 22. Obtain physician order for OT as appropriate 23. Utilize diversional activities 24. Educate patient and patient field representatives director how to maintain a safe environment during visitation times (notify nurse prior to leaving bedside) 25. Consider appropriateness of medical or non-medical staff assistant 26. Set up voiding schedule as appropriate [...] Outcome: Progressing Problem: Knowledge Deficit Goal: Patient/patient field representatives director demonstrates understanding of disease process, treatment plan, [...] supplement as ordered 13. Collaborate with clinical pt sitter 14. Include patient/ patient's field representatives director in decisions related to nutrition Outcome: Not [...] likely after midnight. Spoke with Mauricio garay [facility]. Rescheduled with call back. BLS transport via [facility] to patient's home 10/05/23 at 12:00pm. Spoke with Mauricio garay [facility]. Occupational Therapy Treatment Discharge Recommendations OT Recommendations : [facility] SNF[facility]ECF Comments: pt is a very [...] per Albaro CANTU Equipment: gait belt, connie stedy, RW, external female catheter Telemetry/Dev Manager: Yes Oxygen Used: room air Other: high [...] Patient will perform bed mobility with Modified [place] Dates: Start: 10/02/23 Expected End: 10/30/23 Description: Goal Description: Disciplines: OT Outcomes Date/Time User Outcome 10/04/23 1352 NIXON Smith/Louisa Not Progressing Goal Note filed on 10/04/23 135 by LOCO Smith Evaluation of progress towards goal: Problem: Functional Mobility Dates: Start: 10/02/23 Disciplines: OT Goal: Patient will perform functional mobility with Modified [place] Dates: Start: 10/02/23 Expected End: 10/30/23 Description: [...] Smith Progressing Goal Note filed on 10/04/23 135 [...] Goal: Patient will perform transfers with Modified [place] Dates: Start: 10/02/23 Expected End: 10/30/23 Description: Goal Description: Disciplines: OT Outcomes Date/Time User Outcome 10/04/23 135 LOCO Smith Not Progressing Goal Note filed on 10/04/231351 by LOCO Smith Evaluation of progress towards goal: Occupational Therapy Care Plan (Resolved) There are no resolved problems. Principal Problem: Acute kidney injury ([facility]) Associated attestation - Connie Pablo OTR/L - 10/04/2023 2:19 PM EST I have reviewed and agree with this note and education documentation for this visit. Physical Therapy Treatment Discharge Recommendations PT Recommendations: [facility] SNF/ECF Comments: pt is a very [...] 6 Clicks: Basic Mobility Raw Score: 9 [facility] G Code Modifier: CL PT Treatment/Interventions: Functional [...] belt, connie gipson, RW, external female catheter Telemetry/Dev Manager: Yes Other: high fall risk Pain Assessment [...] Other: min assist x2 from EOB with connieakua gipson, mod assist x2 from recliner chair [...] arm rest for stability, stood with connie vishaldy approx 5 seconds x2 and approx 1 [...] Date/Time User Outcome 10/04/23 1252 Malorie Acosta, MOLDER OPERATOR Progressing 10/02/23 1507 Domi Love, PT Progressing Goal Note filed on 10/02/23 1507 by Domi Love, PT Evaluation of progress towards goal: Problem: Bed Mobility Dates: Start: 10/01/23 Disciplines: PT Goal: Patient will perform bed mobility with Contact Guard Dates: Start: 10/01/23 Expected End: 10/15/23 Description: Goal Description: Disciplines: PT Outcomes Date/Time User Outcome 10/04/23 1252 Malorie Acosta, MOLDER OPERATOR Progressing 10/02/23 1507 Domi Love, PT Not [...] Date/Time User Outcome 10/04/23 1252 Malorie Acosta MOLDER OPERATOR Progressing 10/02/23 1507 Domi Love, PT Progressing Goal Note filed on 10/02/23 1507 by Domi Love, PT Evaluation of progress towards goal: Problem: Standing Balance Dates: Start: 10/01/23 Disciplines: PT Goal: Improve balance to fair Dates: Start: 10/01/23 Expected End: 10/15/23 Description: Static Dynamic- with support of rw Disciplines: PT Outcomes Date/Time User Outcome 10/04/23 1252 Malorie Karla, MOLDER OPERATOR Progressing Problem: Strength Dates: Start: 10/01/23 Disciplines: PT Goal: Improve strength Dates: Start: 10/01/23 Expected End: 10/15/23 Description: Of extremity/ location:Complete bilat UE/LE ex's x 20 reps To facilitate: Disciplines: PT Outcomes Date/Time User Outcome 10/04/23 1252 Malorie Acosta, RAJINDER Progressing 10/02/23 1507 Domi Love PT Progressing Goal Note filed on 10/02/23 1507 by Domi Love PT Evaluation of progress towards goal: Problem: Transfers Dates: Start: 10/01/23 Disciplines: PT Goal: Patient will perform transfers with Minimum Assist Dates: Start: 10/01/23 Expected End: 10/15/23 Description: Goal Description: Disciplines: PT Outcomes Date/Time User Outcome 10/04/23 1252 Malorie Acosta, MOLDER OPERATOR Progressing 10/02/23 1507 Domi Love PT Not Progressing Goal Note filed on 10/02/23 1507 by Domi Love PT Evaluation of progress towards goal: Physical Therapy Care Plan (Resolved) There are no resolved problems. Principal Problem: Acute kidney injury ([facility]) Associated attestation - Domi Love PT - 10/04/2023 3:42 PM EST I have reviewed and agree with this note and education documentation for this visit. DISCHARGE PLANNING NOTE Follow-up Discharge Planning Progress Note Per RN during discharge transition rounds, barriers to discharge are: EP cardiology consult Discharge Plan: Home with family and [address] health[address] Discussed with patient, spouse, [...] Description: INTERVENTIONS: 1. Encourage patient or legal field representatives director to report early pain and ask for [...] per policy 9. Teach patient or legal field representatives director interventions for comforting Outcome: Progressing Note: Evaluation [...] at the bedside 7. Instruct patient/ patient field representatives director about use of safety devices 8. Include patient/ patient field representatives director in decisions related to safety Outcome: Progressing [...] hygiene technique 7. Identify and instruct patient/patient field representatives director in use of appropriate isolation precautions for identified infection/symptoms 8. Provide and discuss with patient/patient field representatives director on educational MDRO sheet 9. Encourage and monitor nutritional status daily and consult pt sitter if indicated 10. Implement neutropenic guidelines as [...] Score of =/> 25 or indicated by [facility] Assessment Goal: Patient should be free from fall Description: Interventions: 1. [place] to environment 2. Hourly rounds addressing the [...] non-skid footwear 11. Teach patient and patient field representatives director to maintain environment for safety and engage [...] (cane, walker) within reach 19. Request patient field representatives director bring adaptive equipment/mobility aids from home or obtain and provide as needed 20. Consult pharmacy regarding effects of med's affecting mobility, cognition, and alternatives 21. Obtain physician order for PT if risk factors associated with mobility are present 22. Obtain physician order for OT as appropriate 23. Utilize diversional activities 24. Educate patient and patient field representatives director how to maintain a safe environment during visitation times (notify nurse prior to leaving bedside) 25. Consider appropriateness of medical or non-medical staff assistant 26. Set up voiding schedule as appropriate (every 2 hours) Outcome: Progressing Note: Evaluation of progress towards goal: fall precautions maintained Problem: Pain Goal: Patient goal is pain score less than 4, able to rest, and participant in treatment plan as appropriate Description: INTERVENTIONS: 1. Encourage patient or legal field representatives director to report early pain and ask for [...] per policy 9. Teach patient or legal field representatives director interventions for comforting Outcome: Progressing Note: Evaluation [...] at the bedside 7. Instruct patient/ patient field representatives director about use of safety devices 8. Include patient/ patient field representatives director in decisions related to safety Outcome: Progressing [...] hygiene technique 7. Identify and instruct patient/patient field representatives director in use of appropriate isolation precautions for identified infection/symptoms 8. Provide and discuss with patient/patient field representatives director on educational MDRO sheet 9. Encourage and monitor nutritional status daily and consult pt sitter if indicated 10. Implement neutropenic guidelines as needed 11. Review exposure to history of communicable disease and recent travel history on admission 12. Encourage annual influenza vaccine 13. Encourage pneumonia vaccine Outcome: Progressing Note: Evaluation of progress towards goal: Patient remains free from signs and symptoms of infection, patient is afebrile, WBC within normal limits. Problem: Knowledge Deficit Goal: Patient/patient field representatives director demonstrates understanding of disease process, treatment plan, [...] discharge planning process 5. Communicate referral to patient educator as appropriate 6. Communicate referral to pt sitter as appropriate 7. Collaborate with case management/social worker for discharge needs Outcome: Progressing Note: [...] supplement as ordered 13. Collaborate with clinical pt sitter 14. Include patient/ patient's field representatives director in decisions related to nutrition Outcome: Progressing [...] be free from fall Description: Interventions: 1. [place] to environment 2. Hourly rounds addressing the [...] non-skid footwear 11. Teach patient and patient field representatives director to maintain environment for safety and engage [...] (cane, walker) within reach 19. Request patient field representatives director bring adaptive equipment/mobility aids from home or obtain and provide as needed 20. Consult pharmacy regarding effects of med's affecting mobility, cognition, and alternatives 21. Obtain physician order for PT if risk factors associated with mobility are present 22. Obtain physician order for OT as appropriate 23. Utilize diversional activities 24. Educate patient and patient field representatives director how to maintain a safe environment during visitation times (notify nurse prior to leaving bedside) 25. Consider appropriateness of medical or non-medical staff assistant 26. Set up voiding schedule as appropriate [...] Description: INTERVENTIONS: 1. Encourage patient or legal field representatives director to report early pain and ask for [...] per policy 9. Teach patient or legal field representatives director interventions for comforting Outcome: Progressing Note: Evaluation [...] at the bedside 7. Instruct patient/ patient field representatives director about use of safety devices 8. Include patient/ patient field representatives director in decisions related to safety Outcome: Progressing [...] hygiene technique 7. Identify and instruct patient/patient field representatives director in use of appropriate isolation precautions for identified infection/symptoms 8. Provide and discuss with patient/patient field representatives director on educational MDRO sheet 9. Encourage and monitor nutritional status daily and consult pt sitter if indicated 10. Implement neutropenic guidelines as [...] Score of =/> 25 or indicated by [facility] Assessment Goal: Patient should be free from fall Description: Interventions: 1. [place] to environment 2. Hourly rounds addressing the [...] non-skid footwear 11. Teach patient and patient field representatives director to maintain environment for safety and engage [...] (cane, walker) within reach 19. Request patient field representatives director bring adaptive equipment/mobility aids from home or obtain and provide as needed 20. Consult pharmacy regarding effects of med's affecting mobility, cognition, and alternatives 21. Obtain physician order for PT if risk factors associated with mobility are present 22. Obtain physician order for OT as appropriate 23. Utilize diversional activities 24. Educate patient and patient field representatives director how to maintain a safe environment during visitation times (notify nurse prior to leaving bedside) 25. Consider appropriateness of medical or non-medical staff assistant 26. Set up voiding schedule as appropriate [...] plan is in place for home with [id number] home [facility]. Patient has been unable to sit at the bedside or ambulate. PT/OT recommending SNF. Discussed discharge plans again with patient, spouse, and son at the bedside. Spouse reports patient can walk and will have support from family at home. However, family members all work [employer] and reiterated that patient has not been [...] commode, and hospital bed. Referral initiated to [facility] She will require BLS transport. Confirmed with Dr. Cox that patient does not need outpatient hemodialysis. Care Navigation will continue to follow for any discharge needs. 10/02/23 4:21 PM Physical Therapy Treatment Discharge Recommendations PT Recommendations: [facility] SNF[facility]ECF Comments: Pt is a very [...] Activity: early mobility-pass Equipment: gait belt, CONNIE Gipson,leandro Telemetry/Dev Manager: Yes Oxygen Used: 3L Other: high fall [...] Disciplines: PT Outcomes Date/Time User Outcome 10/02/23 0649 Domi Love, PT Progressing Goal Note filed on 10/02/23 0856 by Domi Love PT Evaluation of progress [...] resolved problems. Principal Problem: Acute kidney injury (CMS-HCC) Occupational Therapy Evaluation Discharge Recommendations OT Recommendations : [facility] SNF/ECF Comments: Pt is a high [...] resulting from prolonged hospitalization. Pt presented to [place] ED via EMS with general weakness. Family [...] 02/16/2021 Performed by Kelli Su MD at [facility]ATH [facility] Caval Tricuspid Isthmus RFA, Carto w/ICE N/A 03/21/2021 Performed by Lurdes Weinberg MD at [facility] (EP) Coronary angiogram and left ventricular gram/pressure N/A 02/16/2021 Performed by Kelli Su MD at [facility] Coronary fractional flow reserve N/A 02/16/2021 Performed by Kelli Su MD at [facility] Intravascular pressure measurement first vessel each additional vessel (fractional flow reserve) N/A 02/16/2021 Performed by Kelli Su MD at [facility] MYRINGOTOMY W/ TUBES TONSILLECTOMY [...] early mobility-pass Equipment: gait belt, CONNIE Stedy Telemetry/Dev Manager: Yes Oxygen Used: 3L Other: high fall [...] Patient will perform bed mobility with Modified [place] Dates: Start: 10/02/23 Expected End: 10/30/23 Description: Goal Description: Disciplines: OT Problem: Functional Mobility Dates: Start: 10/02/23 Disciplines: OT Goal: Patient will perform functional mobility with Modified [place] Dates: Start: 10/02/23 Expected End: 10/30/23 Description: [...] Goal: Patient will perform transfers with Modified [place] Dates: Start: 10/02/23 Expected End: 10/30/23 Description: Goal Description: Disciplines: OT Occupational Therapy Care Plan (Resolved) There are no resolved problems. Principal Problem: Acute kidney injury (CMS-HCC) Problem: Pain Goal: Patient goal is pain score less than 4, able to rest, and participant in treatment plan as appropriate Description: INTERVENTIONS: 1. Encourage patient or legal field representatives director to report early pain and ask for [...] per policy 9. Teach patient or legal field representatives director interventions for comforting Outcome: Progressing Note: Evaluation [...] at the bedside 7. Instruct patient/ patient field representatives director about use of safety devices 8. Include patient/ patient field representatives director in decisions related to safety Outcome: Progressing [...] hygiene technique 7. Identify and instruct patient/patient field representatives director in use of appropriate isolation precautions for identified infection/symptoms 8. Provide and discuss with patient/patient field representatives director on educational MDRO sheet 9. Encourage and monitor nutritional status daily and consult pt sitter if indicated 10. Implement neutropenic guidelines as needed 11. Review exposure to history of communicable disease and recent travel history on admission 12. Encourage annual influenza vaccine 13. Encourage pneumonia vaccine Outcome: Progressing Note: Evaluation of progress towards goal: Patient shows no s/s of infection at this time. Problem: Knowledge Deficit Goal: Patient/patient field representatives director demonstrates understanding of disease process, treatment plan, [...] discharge planning process 5. Communicate referral to patient educator as appropriate 6. Communicate referral to pt sitter as appropriate 7. Collaborate with case management/social worker for discharge needs Outcome: Progressing Note: [...] supplement as ordered 13. Collaborate with clinical pt sitter 14. Include patient/ patient's field representatives director in decisions related to nutrition Outcome: Progressing [...] Score of =/> 25 or indicated by [facility] Assessment Goal: Patient should be free from fall Description: Interventions: 1. [place] to environment 2. Hourly rounds addressing the [...] non-skid footwear 11. Teach patient and patient field representatives director to maintain environment for safety and engage [...] (cane, walker) within reach 19. Request patient field representatives director bring adaptive equipment/mobility aids from home or obtain and provide as needed 20. Consult pharmacy regarding effects of med's affecting mobility, cognition, and alternatives 21. Obtain physician order for PT if risk factors associated with mobility are present 22. Obtain physician order for OT as appropriate 23. Utilize diversional activities 24. Educate patient and patient field representatives director how to maintain a safe environment during visitation times (notify nurse prior to leaving bedside) 25. Consider appropriateness of medical or non-medical staff assistant 26. Set up voiding schedule as appropriate [...] Description: INTERVENTIONS: 1. Encourage patient or legal field representatives director to report early pain and ask for [...] per policy 9. Teach patient or legal field representatives director interventions for comforting Note: Evaluation of progress [...] at the bedside 7. Instruct patient/ patient field representatives director about use of safety devices 8. Include patient/ patient field representatives director in decisions related to safety Note: Evaluation [...] hygiene technique 7. Identify and instruct patient/patient field representatives director in use of appropriate isolation precautions for identified infection/symptoms 8. Provide and discuss with patient/patient field representatives director on educational MDRO sheet 9. Encourage and monitor nutritional status daily and consult pt sitter if indicated 10. Implement neutropenic guidelines as [...] until DC. Problem: Knowledge Deficit Goal: Patient/patient field representatives director demonstrates understanding of disease process, treatment plan, [...] Physical Therapy Evaluation Discharge Recommendations PT Recommendations: [facility] SNF/ECF Comments: Pt is a very [...] decline resulting from hospitalization. Pt presented to [place] ED via EMS with general weakness. Family reported they called EMS after pt became weak and she lowered herself to the floor. Pt transferred to [facility]. Pt was just discharged from the hospital [...] L5 Obesity Systolic and diastolic CHF, acute ([facility]) 09/03/2023 Visual impairment Past Surgical History: Procedure Laterality Date Cardiac catheterization 02/16/2021 Performed by Kelli Su MD at [facility] Caval Tricuspid Isthmus RFA, Carto w/ICE N/A 03/21/2021 Performed by Lurdes Weinberg MD at [facility] (EP) Coronary angiogram and left ventricular gram/pressure N/A 02/16/2021 Performed by Kelli Su MD at [facility] Coronary fractional flow reserve N/A 02/16/2021 Performed by Kelli Su MD at [facility] Intravascular pressure measurement first vessel each additional vessel (fractional flow reserve) N/A 02/16/2021 Performed by Kelli Su MD at [facility] MYRINGOTOMY W/ TUBES TONSILLECTOMY [...] 6 Clicks: Basic Mobility Raw Score: 9 [facility] G Code Modifier: CL PT Treatment/Interventions: Functional [...] Activity: early mobility-pass Equipment: gait belt, rw Telemetry/Dev Manager: Yes Oxygen Used: 3L Other: high fall [...] resolved problems. Principal Problem: Acute kidney injury ([facility]) DISCHARGE PLANNING NOTE Referral to [facility] ([place] P# [phone] ; F# [phone]) , [address] (P# ; F# ); [place] (P# [phone] ; F# [phone]) , [facility] ([place]- P# ; F# ) ([place], [place] P# ; F#) DISCHARGE PLANNING NOTE Per RN during discharge transition rounds, barriers to discharge are: PT/OT eval. IV fluids/diuretics, 3L O2, Dasilva Discharge Plan: Home with home health care and support from family. List provided to patient at bedside. [employer] will continue to follow for any discharge needs. - Ashley Park RN 10/01/23 1:49 PM UPDATE: Spoke with patient at bedside, per her request- tasked [facility] to send referrals to [facility], [address] & [facility]. - Ashley Park RN 10/01/23 2:15 PM Problem: Pain Goal: Patient goal is pain score less than 4, able to rest, and participant in treatment plan as appropriate Description: INTERVENTIONS: 1. Encourage patient or legal field representatives director to report early pain and ask for [...] per policy 9. Teach patient or legal field representatives director interventions for comforting Outcome: Progressing Note: Evaluation of progress towards goal: Patient denies pain at this time, will continue to monitor and reassess pain with hourly rounding Problem: Pain Goal: Patient goal is pain score less than 4, able to rest, and participant in treatment plan as appropriate Description: INTERVENTIONS: 1. Encourage patient or legal field representatives director to report early pain and ask for [...] per policy 9. Teach patient or legal field representatives director interventions for comforting Outcome: Progressing Note: Evaluation [...] at the bedside 7. Instruct patient/ patient field representatives director about use of safety devices 8. Include patient/ patient field representatives director in decisions related to safety Outcome: Progressing [...] hygiene technique 7. Identify and instruct patient/patient field representatives director in use of appropriate isolation precautions for identified infection/symptoms 8. Provide and discuss with patient/patient field representatives director on educational MDRO sheet 9. Encourage and monitor nutritional status daily and consult pt sitter if indicated 10. Implement neutropenic guidelines as needed 11. Review exposure to history of communicable disease and recent travel history on admission 12. Encourage annual influenza vaccine 13. Encourage pneumonia vaccine Outcome: Progressing Note: Evaluation of progress towards goal: Patient will remain infection free during hospitalization. Standard precautions in place. Problem: Knowledge Deficit Goal: Patient/patient field representatives director demonstrates understanding of disease process, treatment plan, [...] Cardiac medications administered as ordered. Spoke to BILLIE Alex. Updated on events. [facility] will assume care for patient tomorrow morning at 07:00 AM. Anel Lara PA-C [facility] 09/29/2023 Anel Lara PA-C 09/29/23 1724 Problem: Pain Goal: Patient goal is pain score less than 4, able to rest, and participant in treatment plan as appropriate Description: INTERVENTIONS: 1. Encourage patient or legal field representatives director to report early pain and ask for [...] per policy 9. Teach patient or legal field representatives director interventions for comforting Outcome: Progressing Note: Evaluation [...] at the bedside 7. Instruct patient/ patient field representatives director about use of safety devices 8. Include patient/ patient field representatives director in decisions related to safety Outcome: Progressing Note: Evaluation of progress towards goal: Pt has remained free of falls and safety measures continue to be met. Will continue to monitor Problem: Knowledge Deficit Goal: Patient/patient field representatives director demonstrates understanding of disease process, treatment plan, [...] is requested, please feel free to contact technical writer and editor. Problem: Pain Goal: Patient goal is pain score less than 4, able to rest, and participant in treatment plan as appropriate Description: INTERVENTIONS: 1. Encourage patient or legal field representatives director to report early pain and ask for [...] per policy 9. Teach patient or legal field representatives director interventions for comforting Outcome: Progressing Note: Evaluation [...] at the bedside 7. Instruct patient/ patient field representatives director about use of safety devices 8. Include patient/ patient field representatives director in decisions related to safety Outcome: Progressing [...] be free from fall Description: Interventions: 1. [place] to environment 2. Hourly rounds addressing the [...] non-skid footwear 11. Teach patient and patient field representatives director to maintain environment for safety and engage [...] (cane, walker) within reach 19. Request patient field representatives director bring adaptive equipment/mobility aids from home or obtain and provide as needed 20. Consult pharmacy regarding effects of med's affecting mobility, cognition, and alternatives 21. Obtain physician order for PT if risk factors associated with mobility are present 22. Obtain physician order for OT as appropriate 23. Utilize diversional activities 24. Educate patient and patient field representatives director how to maintain a safe environment during visitation times (notify nurse prior to leaving bedside) 25. Consider appropriateness of medical or non-medical staff assistant 26. Set up voiding schedule as appropriate [...] Description: INTERVENTIONS: 1. Encourage patient or legal field representatives director to report early pain and ask for [...] per policy 9. Teach patient or legal field representatives director interventions for comforting Outcome: Progressing Note: Evaluation [...] at the bedside 7. Instruct patient/ patient field representatives director about use of safety devices 8. Include patient/ patient field representatives director in decisions related to safety Outcome: Progressing Note: Evaluation of progress towards goal: Pt has remained free of falls and safety measures continue to be met. Will continue to monitor Problem: Knowledge Deficit Goal: Patient/patient field representatives director demonstrates understanding of disease process, treatment plan, [...] be free from fall Description: Interventions: 1. [place] to environment 2. Hourly rounds addressing the [...] non-skid footwear 11. Teach patient and patient field representatives director to maintain environment for safety and engage [...] (cane, walker) within reach 19. Request patient field representatives director bring adaptive equipment/mobility aids from home or obtain and provide as needed 20. Consult pharmacy regarding effects of med's affecting mobility, cognition, and alternatives 21. Obtain physician order for PT if risk factors associated with mobility are present 22. Obtain physician order for OT as appropriate 23. Utilize diversional activities 24. Educate patient and patient field representatives director how to maintain a safe environment during visitation times (notify nurse prior to leaving bedside) 25. Consider appropriateness of medical or non-medical staff assistant 26. Set up voiding schedule as appropriate [...] is requested, please feel free to contact technical writer and editor. Problem: Pain Goal: Patient goal is pain score less than 4, able to rest, and participant in treatment plan as appropriate Description: INTERVENTIONS: 1. Encourage patient or legal field representatives director to report early pain and ask for [...] per policy 9. Teach patient or legal field representatives director interventions for comforting Outcome: Progressing Note: Evaluation [...] at the bedside 7. Instruct patient/ patient field representatives director about use of safety devices 8. Include patient/ patient field representatives director in decisions related to safety Outcome: Progressing [...] hygiene technique 7. Identify and instruct patient/patient field representatives director in use of appropriate isolation precautions for identified infection/symptoms 8. Provide and discuss with patient/patient field representatives director on educational MDRO sheet 9. Encourage and monitor nutritional status daily and consult pt sitter if indicated 10. Implement neutropenic guidelines as [...] be free from fall Description: Interventions: 1. [place] to environment 2. Hourly rounds addressing the [...] non-skid footwear 11. Teach patient and patient field representatives director to maintain environment for safety and engage [...] (cane, walker) within reach 19. Request patient field representatives director bring adaptive equipment/mobility aids from home or obtain and provide as needed 20. Consult pharmacy regarding effects of med's affecting mobility, cognition, and alternatives 21. Obtain physician order for PT if risk factors associated with mobility are present 22. Obtain physician order for OT as appropriate 23. Utilize diversional activities 24. Educate patient and patient field representatives director how to maintain a safe environment during visitation times (notify nurse prior to leaving bedside) 25. Consider appropriateness of medical or non-medical staff assistant 26. Set up voiding schedule as appropriate [...] [place]. We will take her off the [facility] hospitalist list for now, please call [facility] when patient is ready to transfer out [...] Description: INTERVENTIONS: 1. Encourage patient or legal field representatives director to report early pain and ask for [...] per policy 9. Teach patient or legal field representatives director interventions for comforting Outcome: Progressing Note: Evaluation [...] at the bedside 7. Instruct patient/ patient field representatives director about use of safety devices 8. Include patient/ patient field representatives director in decisions related to safety Outcome: Progressing [...] hygiene technique 7. Identify and instruct patient/patient field representatives director in use of appropriate isolation precautions for identified infection/symptoms 8. Provide and discuss with patient/patient field representatives director on educational MDRO sheet 9. Encourage and monitor nutritional status daily and consult pt sitter if indicated 10. Implement neutropenic guidelines as needed 11. Review exposure to history of communicable disease and recent travel history on admission 12. Encourage annual influenza vaccine 13. Encourage pneumonia vaccine Outcome: Progressing Note: Evaluation of progress towards goal: Monitoring s/s, labs and vitals for indications of infection Problem: Knowledge Deficit Goal: Patient/patient field representatives director demonstrates understanding of disease process, treatment plan, [...] Description: INTERVENTIONS: 1. Encourage patient or legal field representatives director to report early pain and ask for [...] per policy 9. Teach patient or legal field representatives director interventions for comforting Outcome: Progressing Note: Evaluation [...] at the bedside 7. Instruct patient/ patient field representatives director about use of safety devices 8. Include patient/ patient field representatives director in decisions related to safety Outcome: Progressing [...] hygiene technique 7. Identify and instruct patient/patient field representatives director in use of appropriate isolation precautions for identified infection/symptoms 8. Provide and discuss with patient/patient field representatives director on educational MDRO sheet 9. Encourage and monitor nutritional status daily and consult pt sitter if indicated 10. Implement neutropenic guidelines as needed 11. Review exposure to history of communicable disease and recent travel history on admission 12. Encourage annual influenza vaccine 13. Encourage pneumonia vaccine Outcome: Progressing Note: Evaluation of progress towards goal: Monitoring s/s, labs and vitals for indications of infection Problem: Knowledge Deficit Goal: Patient/patient field representatives director demonstrates understanding of disease process, treatment plan, [...] Description: INTERVENTIONS: 1. Encourage patient or legal field representatives director to report early pain and ask for [...] per policy 9. Teach patient or legal field representatives director interventions for comforting Outcome: Progressing Note: Evaluation [...] at the bedside 7. Instruct patient/ patient field representatives director about use of safety devices 8. Include patient/ patient field representatives director in decisions related to safety Outcome: Progressing [...] hygiene technique 7. Identify and instruct patient/patient field representatives director in use of appropriate isolation precautions for identified infection/symptoms 8. Provide and discuss with patient/patient field representatives director on educational MDRO sheet 9. Encourage and monitor nutritional status daily and consult pt sitter if indicated 10. Implement neutropenic guidelines as [...] no growth. Problem: Knowledge Deficit Goal: Patient/patient field representatives director demonstrates understanding of disease process, treatment plan, [...] bedtime with Humalog sliding scale coverage ordered. AD=452 mg/dl with coverage administered per sliding scale. Goal: Patient's discharge needs are met Description: Patient's goal is: INTERVENTIONS 1. Assess patient for self-management skills 2. Encourage participation in diabetes management 3. Identify potential discharge barriers on admission and throughout hospital stay 4. Involve patient/S.O. in discharge planning process 5. Communicate referral to patient educator as appropriate 6. Communicate referral to pt sitter as appropriate 7. Collaborate with case management/social worker for discharge needs Outcome: Progressing Note: [...] supplement as ordered 13. Collaborate with clinical pt sitter 14. Include patient/ patient's field representatives director in decisions related to nutrition Outcome: Progressing [...] Score of =/> 25 or indicated by [facility] Assessment Goal: Patient should be free from fall Description: Interventions: 1. [place] to environment 2. Hourly rounds addressing the [...] non-skid footwear 11. Teach patient and patient field representatives director to maintain environment for safety and engage [...] (cane, walker) within reach 19. Request patient field representatives director bring adaptive equipment/mobility aids from home or obtain and provide as needed 20. Consult pharmacy regarding effects of med's affecting mobility, cognition, and alternatives 21. Obtain physician order for PT if risk factors associated with mobility are present 22. Obtain physician order for OT as appropriate 23. Utilize diversional activities 24. Educate patient and patient field representatives director how to maintain a safe environment during visitation times (notify nurse prior to leaving bedside) 25. Consider appropriateness of medical or non-medical staff assistant 26. Set up voiding schedule as appropriate (every 2 hours) Outcome: Progressing Note: Evaluation of progress towards goal: Pt free from fall with hourly rounding continued & maintained. 4 Ps addressed. Respiratory Therapy Clinical Practice Guidelines Consult Patient Active Problem List Diagnosis Cerumen debris on tympanic membrane of both ears Typical atrial flutter ([facility]) Coronary artery disease involving [place] coronary artery of [place] heart without angina pectoris Tachycardia induced cardiomyopathy ([facility]) Type 2 diabetes mellitus with circulatory disorder, without long-term current use of insulin ([facility]) Other hyperlipidemia Paroxysmal atrial fibrillation ([facility]) BRANDEE (acute kidney injury) ([facility]) Hyperkalemia Bilateral lower extremity edema Systolic and diastolic CHF, acute ([facility]) Acute kidney injury ([facility]) Last Chest XRAY: Reviewed Pulmonary History: reviewed [...] Description: INTERVENTIONS: 1. Encourage patient or legal field representatives director to report early pain and ask for [...] per policy 9. Teach patient or legal field representatives director interventions for comforting Outcome: Progressing Note: Evaluation [...] at the bedside 7. Instruct patient/ patient field representatives director about use of safety devices 8. Include patient/ patient field representatives director in decisions related to safety Outcome: Progressing [...] hygiene technique 7. Identify and instruct patient/patient field representatives director in use of appropriate isolation precautions for identified infection/symptoms 8. Provide and discuss with patient/patient field representatives director on educational MDRO sheet 9. Encourage and monitor nutritional status daily and consult pt sitter if indicated 10. Implement neutropenic guidelines as needed 11. Review exposure to history of communicable disease and recent travel history on admission 12. Encourage annual influenza vaccine 13. Encourage pneumonia vaccine Outcome: Progressing Note: Evaluation of progress towards goal: Pt afebrile. WBCs 10.1. Urine culture no growth 24 hrs. Pt on Rocephin 1000 mg IVPB every 24 hrs. Problem: Knowledge Deficit Goal: Patient/patient field representatives director demonstrates understanding of disease process, treatment plan, [...] discharge planning process 5. Communicate referral to patient educator as appropriate 6. Communicate referral to pt sitter as appropriate 7. Collaborate with case management/social worker for discharge needs Outcome: Progressing Note: [...] supplement as ordered 13. Collaborate with clinical pt sitter 14. Include patient/ patient's field representatives director in decisions related to nutrition Outcome: Progressing [...] be free from fall Description: Interventions: 1. [place] to environment 2. Hourly rounds addressing the [...] non-skid footwear 11. Teach patient and patient field representatives director to maintain environment for safety and engage [...] (cane, walker) within reach 19. Request patient field representatives director bring adaptive equipment/mobility aids from home or obtain and provide as needed 20. Consult pharmacy regarding effects of med's affecting mobility, cognition, and alternatives 21. Obtain physician order for PT if risk factors associated with mobility are present 22. Obtain physician order for OT as appropriate 23. Utilize diversional activities 24. Educate patient and patient field representatives director how to maintain a safe environment during visitation times (notify nurse prior to leaving bedside) 25. Consider appropriateness of medical or non-medical staff assistant 26. Set up voiding schedule as appropriate (every 2 hours) Outcome: Progressing Note: Evaluation of progress towards goal: Pt free from fall with hourly rounding continued & maintained. 4 Ps addressed. Problem: Pain Goal: Patient goal is pain score less than 4, able to rest, and participant in treatment plan as appropriate Description: INTERVENTIONS: 1. Encourage patient or legal field representatives director to report early pain and ask for [...] per policy 9. Teach patient or legal field representatives director interventions for comforting Note: Evaluation of progress [...] at the bedside 7. Instruct patient/ patient field representatives director about use of safety devices 8. Include patient/ patient field representatives director in decisions related to safety Note: Evaluation [...] hygiene technique 7. Identify and instruct patient/patient field representatives director in use of appropriate isolation precautions for identified infection/symptoms 8. Provide and discuss with patient/patient field representatives director on educational MDRO sheet 9. Encourage and monitor nutritional status daily and consult pt sitter if indicated 10. Implement neutropenic guidelines as needed 11. Review exposure to history of communicable disease and recent travel history on admission 12. Encourage annual influenza vaccine 13. Encourage pneumonia vaccine Note: Evaluation of progress towards goal: Patient remains free from infection due to hospitalization. Patient remains afebrile at this time. Problem: Knowledge Deficit Goal: Patient/patient field representatives director demonstrates understanding of disease process, treatment plan, [...] Score of =/> 25 or indicated by [facility] Assessment Goal: Patient should be free from fall Description: Interventions: 1. [place] to environment 2. Hourly rounds addressing the [...] non-skid footwear 11. Teach patient and patient field representatives director to maintain environment for safety and engage [...] (cane, walker) within reach 19. Request patient field representatives director bring adaptive equipment/mobility aids from home or obtain and provide as needed 20. Consult pharmacy regarding effects of med's affecting mobility, cognition, and alternatives 21. Obtain physician order for PT if risk factors associated with mobility are present 22. Obtain physician order for OT as appropriate 23. Utilize diversional activities 24. Educate patient and patient field representatives director how to maintain a safe environment during visitation times (notify nurse prior to leaving bedside) 25. Consider appropriateness of medical or non-medical staff assistant 26. Set up voiding schedule as appropriate (every 2 hours) Note: Evaluation of progress towards goal: No falls at this time. Problem: Pain Goal: Patient goal is pain score less than 4, able to rest, and participant in treatment plan as appropriate Description: INTERVENTIONS: 1. Encourage patient or legal field representatives director to report early pain and ask for [...] per policy 9. Teach patient or legal field representatives director interventions for comforting Outcome: Progressing Note: Evaluation [...] at the bedside 7. Instruct patient/ patient field representatives director about use of safety devices 8. Include patient/ patient field representatives director in decisions related to safety Outcome: Progressing [...] hygiene technique 7. Identify and instruct patient/patient field representatives director in use of appropriate isolation precautions for identified infection/symptoms 8. Provide and discuss with patient/patient field representatives director on educational MDRO sheet 9. Encourage and monitor nutritional status daily and consult pt sitter if indicated 10. Implement neutropenic guidelines as needed 11. Review exposure to history of communicable disease and recent travel history on admission 12. Encourage annual influenza vaccine 13. Encourage pneumonia vaccine Outcome: Progressing Note: Evaluation of progress towards goal: Pt afebrile. WBCs 8.5. No antibiotics at this time. Blood cultures no growth. Urine culture sent. Problem: Knowledge Deficit Goal: Patient/patient field representatives director demonstrates understanding of disease process, treatment plan, [...] Note: Evaluation of progress towards goal: Glucose [id number] mg/dl with no Humalog coverage required. BS [...] discharge planning process 5. Communicate referral to patient educator as appropriate 6. Communicate referral to pt sitter as appropriate 7. Collaborate with case management/social worker for discharge needs Outcome: Progressing Note: [...] supplement as ordered 13. Collaborate with clinical pt sitter 14. Include patient/ patient's field representatives director in decisions related to nutrition Outcome: Progressing [...] be free from fall Description: Interventions: 1. [place] to environment 2. Hourly rounds addressing the [...] non-skid footwear 11. Teach patient and patient field representatives director to maintain environment for safety and engage [...] (cane, walker) within reach 19. Request patient field representatives director bring adaptive equipment/mobility aids from home or obtain and provide as needed 20. Consult pharmacy regarding effects of med's affecting mobility, cognition, and alternatives 21. Obtain physician order for PT if risk factors associated with mobility are present 22. Obtain physician order for OT as appropriate 23. Utilize diversional activities 24. Educate patient and patient field representatives director how to maintain a safe environment during visitation times (notify nurse prior to leaving bedside) 25. Consider appropriateness of medical or non-medical staff assistant 26. Set up voiding schedule as appropriate (every 2 hours) Outcome: Progressing Note: Evaluation of progress towards goal: Pt free from fall with hourly rounding continued & maintained. 4 Ps addressed. Problem: Pain Goal: Patient goal is pain score less than 4, able to rest, and participant in treatment plan as appropriate Description: INTERVENTIONS: 1. Encourage patient or legal field representatives director to report early pain and ask for [...] per policy 9. Teach patient or legal field representatives director interventions for comforting Outcome: Progressing Note: Evaluation [...] at the bedside 7. Instruct patient/ patient field representatives director about use of safety devices 8. Include patient/ patient field representatives director in decisions related to safety Outcome: Progressing [...] hygiene technique 7. Identify and instruct patient/patient field representatives director in use of appropriate isolation precautions for identified infection/symptoms 8. Provide and discuss with patient/patient field representatives director on educational MDRO sheet 9. Encourage and monitor nutritional status daily and consult pt sitter if indicated 10. Implement neutropenic guidelines as needed 11. Review exposure to history of communicable disease and recent travel history on admission 12. Encourage annual influenza vaccine 13. Encourage pneumonia vaccine Outcome: Progressing Note: Evaluation of progress towards goal: Pt remains free of infection. Will continue to monitor vital signs and labs for signs/symptoms of infection Problem: Knowledge Deficit Goal: Patient/patient field representatives director demonstrates understanding of disease process, treatment plan, medications, and discharge instructions Description: INTERVENTIONS 1. Complete learning assessment and assess knowledge base 2. Provide teaching at level of understanding 3. Provide teaching via preferred learning method(s) Outcome: Progressing Note: Evaluation of progress towards goal: Pt/pt field representatives director demonstrates understanding of plan of care, treatment, [...] supplement as ordered 13. Collaborate with clinical pt sitter 14. Include patient/ patient's field representatives director in decisions related to nutrition Outcome: Progressing [...] be free from fall Description: Interventions: 1. [place] to environment 2. Hourly rounds addressing the [...] non-skid footwear 11. Teach patient and patient field representatives director to maintain environment for safety and engage [...] (cane, walker) within reach 19. Request patient field representatives director bring adaptive equipment/mobility aids from home or obtain and provide as needed 20. Consult pharmacy regarding effects of med's affecting mobility, cognition, and alternatives 21. Obtain physician order for PT if risk factors associated with mobility are present 22. Obtain physician order for OT as appropriate 23. Utilize diversional activities 24. Educate patient and patient field representatives director how to maintain a safe environment during visitation times (notify nurse prior to leaving bedside) 25. Consider appropriateness of medical or non-medical staff assistant 26. Set up voiding schedule as appropriate [...] Description: INTERVENTIONS: 1. Encourage patient or legal field representatives director to report early pain and ask for [...] per policy 9. Teach patient or legal field representatives director interventions for comforting Outcome: Progressing Note: Evaluation [...] at the bedside 7. Instruct patient/ patient field representatives director about use of safety devices 8. Include patient/ patient field representatives director in decisions related to safety Outcome: Progressing [...] hygiene technique 7. Identify and instruct patient/patient field representatives director in use of appropriate isolation precautions for identified infection/symptoms 8. Provide and discuss with patient/patient field representatives director on educational MDRO sheet 9. Encourage and monitor nutritional status daily and consult pt sitter if indicated 10. Implement neutropenic guidelines as needed 11. Review exposure to history of communicable disease and recent travel history on admission 12. Encourage annual influenza vaccine 13. Encourage pneumonia vaccine Outcome: Progressing Note: Evaluation of progress towards goal: Infection safety policies will be applied to patient's care. Monitoring s/s, labs, and vitals for indications of infection. Problem: Knowledge Deficit Goal: Patient/patient field representatives director demonstrates understanding of disease process, treatment plan, [...] discharge planning process 5. Communicate referral to patient educator as appropriate 6. Communicate referral to pt sitter as appropriate 7. Collaborate with case management/social worker for discharge needs Outcome: Progressing Note: [...] supplement as ordered 13. Collaborate with clinical pt sitter 14. Include patient/ patient's field representatives director in decisions related to nutrition Outcome: Progressing [...] Score of =/> 25 or indicated by [facility] Assessment Goal: Patient should be free from fall Description: Interventions: 1. [place] to environment 2. Hourly rounds addressing the [...] non-skid footwear 11. Teach patient and patient field representatives director to maintain environment for safety and engage [...] (cane, walker) within reach 19. Request patient field representatives director bring adaptive equipment/mobility aids from home or obtain and provide as needed 20. Consult pharmacy regarding effects of med's affecting mobility, cognition, and alternatives 21. Obtain physician order for PT if risk factors associated with mobility are present 22. Obtain physician order for OT as appropriate 23. Utilize diversional activities 24. Educate patient and patient field representatives director how to maintain a safe environment during visitation times (notify nurse prior to leaving bedside) 25. Consider appropriateness of medical or non-medical staff assistant 26. Set up voiding schedule as appropriate (every 2 hours) Outcome: Progressing Note: Evaluation of progress towards goal: Fall prevention measures are being implemented to prevent and reduce the risk of patient falls. Problem: Pain Goal: Patient goal is pain score less than 4, able to rest, and participant in treatment plan as appropriate Description: INTERVENTIONS: 1. Encourage patient or legal field representatives director to report early pain and ask for [...] per policy 9. Teach patient or legal field representatives director interventions for comforting Outcome: Progressing Note: Evaluation [...] at the bedside 7. Instruct patient/ patient field representatives director about use of safety devices 8. Include patient/ patient field representatives director in decisions related to safety Outcome: Progressing [...] hygiene technique 7. Identify and instruct patient/patient field representatives director in use of appropriate isolation precautions for identified infection/symptoms 8. Provide and discuss with patient/patient field representatives director on educational MDRO sheet 9. Encourage and monitor nutritional status daily and consult pt sitter if indicated 10. Implement neutropenic guidelines as needed 11. Review exposure to history of communicable disease and recent travel history on admission 12. Encourage annual influenza vaccine 13. Encourage pneumonia vaccine Outcome: Progressing Note: Evaluation of progress towards goal: Pt remains free of infection. Will continue to monitor vital signs and labs for signs/symptoms of infection Problem: Knowledge Deficit Goal: Patient/patient field representatives director demonstrates understanding of disease process, treatment plan, medications, and discharge instructions Description: INTERVENTIONS 1. Complete learning assessment and assess knowledge base 2. Provide teaching at level of understanding 3. Provide teaching via preferred learning method(s) Outcome: Progressing Note: Evaluation of progress towards goal: Pt/pt field representatives director demonstrates understanding of plan of care, treatment, [...] supplement as ordered 13. Collaborate with clinical pt sitter 14. Include patient/ patient's field representatives director in decisions related to nutrition Outcome: Progressing [...] be free from fall Description: Interventions: 1. [place] to environment 2. Hourly rounds addressing the [...] non-skid footwear 11. Teach patient and patient field representatives director to maintain environment for safety and engage [...] (cane, walker) within reach 19. Request patient field representatives director bring adaptive equipment/mobility aids from home or obtain and provide as needed 20. Consult pharmacy regarding effects of med's affecting mobility, cognition, and alternatives 21. Obtain physician order for PT if risk factors associated with mobility are present 22. Obtain physician order for OT as appropriate 23. Utilize diversional activities 24. Educate patient and patient field representatives director how to maintain a safe environment during visitation times (notify nurse prior to leaving bedside) 25. Consider appropriateness of medical or non-medical staff assistant 26. Set up voiding schedule as appropriate (every 2 hours) Outcome: Progressing Note: Evaluation of progress towards goal: Pt remains free from falls. Bed locked in low position, area free of hazards, adequate lighting, and call light within reach DISCHARGE PLANNING NOTE Referral sent to [facility]al [facility] (P# [phone] ; F# [phone]) via [employer] for Renal [facility] (P# [phone] ; F# [phone]) Images from the original note were not included. DISCHARGE PLANNING NOTE Esl Instructor met with patient, introduced self, and explained role. Patient educated on safe discharge plan. Pt admitted 09/20/2023 with Acute kidney injury (CMS-HCC) [N17.9] per chart review. Consults: Nephrology Discharge Barriers per Daily Transition Rounds and chart review: dialysis plan, IV meds Past Medical History: Diagnosis Date Arrhythmia Hypertension Injury of back Disc L4 and L5 Obesity Systolic and diastolic CHF, acute ([facility]) 09/03/2023 Visual impairment Prior to admission patient [...] and referral to outpt dialysis. Renal in [place]. RC tasked to send HD referral. Services Requested: Services Requested Discharge Disposition: Outpatient Dialysis Outpatient Dialysis Name: [facility] Initial DC Assessment Completed: Yes [...] Description: INTERVENTIONS: 1. Encourage patient or legal field representatives director to report early pain and ask for [...] per policy 9. Teach patient or legal field representatives director interventions for comforting Outcome: Progressing Note: Evaluation [...] at the bedside 7. Instruct patient/ patient field representatives director about use of safety devices 8. Include patient/ patient field representatives director in decisions related to safety Outcome: Progressing [...] hygiene technique 7. Identify and instruct patient/patient field representatives director in use of appropriate isolation precautions for identified infection/symptoms 8. Provide and discuss with patient/patient field representatives director on educational MDRO sheet 9. Encourage and monitor nutritional status daily and consult pt sitter if indicated 10. Implement neutropenic guidelines as needed 11. Review exposure to history of communicable disease and recent travel history on admission 12. Encourage annual influenza vaccine 13. Encourage pneumonia vaccine Outcome: Progressing Note: Evaluation of progress towards goal: Pt afebrile. WBCs 10.0. Pt on Rocephin 1000 mg IVPB every 24 hrs. Problem: Knowledge Deficit Goal: Patient/patient field representatives director demonstrates understanding of disease process, treatment plan, [...] discharge planning process 5. Communicate referral to patient educator as appropriate 6. Communicate referral to pt sitter as appropriate 7. Collaborate with case management/social worker for discharge needs Outcome: Progressing Note: [...] supplement as ordered 13. Collaborate with clinical pt sitter 14. Include patient/ patient's field representatives director in decisions related to nutrition Outcome: Progressing [...] Score of =/> 25 or indicated by [facility] Assessment Goal: Patient should be free from fall Description: Interventions: 1. [place] to environment 2. Hourly rounds addressing the [...] non-skid footwear 11. Teach patient and patient field representatives director to maintain environment for safety and engage [...] (cane, walker) within reach 19. Request patient field representatives director bring adaptive equipment/mobility aids from home or obtain and provide as needed 20. Consult pharmacy regarding effects of med's affecting mobility, cognition, and alternatives 21. Obtain physician order for PT if risk factors associated with mobility are present 22. Obtain physician order for OT as appropriate 23. Utilize diversional activities 24. Educate patient and patient field representatives director how to maintain a safe environment during visitation times (notify nurse prior to leaving bedside) 25. Consider appropriateness of medical or non-medical staff assistant 26. Set up voiding schedule as appropriate [...] goal: Wrong care plan need adult 09/21/2023 0430 by ALONDRA Morin Outcome: Progressing Note: Evaluation of progress towards goal:Pt on Levophed drip to keep MAP above 65. Vitals stable with heart rhythm Atrial Fib. Continue to wean Levophed drip. Problem: Pain Goal: Patient goal is pain score less than 4, able to rest, and participant in treatment plan as appropriate Description: INTERVENTIONS: 1. Encourage patient or legal field representatives director to report early pain and ask for [...] per policy 9. Teach patient or legal field representatives director interventions for comforting Outcome: Progressing Note: Evaluation [...] at the bedside 7. Instruct patient/ patient field representatives director about use of safety devices 8. Include patient/ patient field representatives director in decisions related to safety Outcome: Progressing [...] hygiene technique 7. Identify and instruct patient/patient field representatives director in use of appropriate isolation precautions for identified infection/symptoms 8. Provide and discuss with patient/patient field representatives director on educational MDRO sheet 9. Encourage and monitor nutritional status daily and consult pt sitter if indicated 10. Implement neutropenic guidelines as needed 11. Review exposure to history of communicable disease and recent travel history on admission 12. Encourage annual influenza vaccine 13. Encourage pneumonia vaccine Outcome: Progressing Note: Evaluation of progress towards goal: Pt afebrile. WBCs 9.7. Pt on Rocephin 1000 mg IVPB every 24 hrs. Blood cultures no growth. Problem: Knowledge Deficit Goal: Patient/patient field representatives director demonstrates understanding of disease process, treatment plan, [...] discharge planning process 5. Communicate referral to patient educator as appropriate 6. Communicate referral to pt sitter as appropriate 7. Collaborate with case management/social worker for discharge needs Outcome: Progressing Note: [...] supplement as ordered 13. Collaborate with clinical pt sitter 14. Include patient/ patient's field representatives director in decisions related to nutrition Outcome: Progressing [...] Description: INTERVENTIONS: 1. Encourage patient or legal field representatives director to report early pain and ask for [...] per policy 9. Teach patient or legal field representatives director interventions for comforting Outcome: Progressing Note: Evaluation [...] at the bedside 7. Instruct patient/ patient field representatives director about use of safety devices 8. Include patient/ patient field representatives director in decisions related to safety Outcome: Progressing [...] hygiene technique 7. Identify and instruct patient/patient field representatives director in use of appropriate isolation precautions for identified infection/symptoms 8. Provide and discuss with patient/patient field representatives director on educational MDRO sheet 9. Encourage and monitor nutritional status daily and consult pt sitter if indicated 10. Implement neutropenic guidelines as needed 11. Review exposure to history of communicable disease and recent travel history on admission 12. Encourage annual influenza vaccine 13. Encourage pneumonia vaccine Outcome: Progressing Note: Evaluation of progress towards goal: Pt afebrile. WBCs 9.7. Pt on Rocephin 1000 mg IVPB every 24 hrs. Blood cultures no growth. Problem: Knowledge Deficit Goal: Patient/patient field representatives director demonstrates understanding of disease process, treatment plan, [...] discharge planning process 5. Communicate referral to patient educator as appropriate 6. Communicate referral to pt sitter as appropriate 7. Collaborate with case management/social worker for discharge needs Outcome: Progressing Note: [...] supplement as ordered 13. Collaborate with clinical pt sitter 14. Include patient/ patient's field representatives director in decisions related to nutrition Outcome: Progressing [...] & dasilva care provided. Problem: Cardiovascular - Goal: Maintains optimal cardiac output and hemodynamic [...] wean Levophed drip. documented in this encounter [employer] 10-05-2023 Hospital course Narrative Images from the original note were not included. [facility]- [facility] Medicine Discharge Summary Patient's Name: Harris Castrejon Date of : 1955 Age: 68 yrs Gender: female PCP: Patient Care Team: Carol Akins PA-C as PCP - General (Physician Binder Coverstitch) DATE OF ADMISSION: 09/20/2023 DATE OF DISCHARGE: 10/05/2023 DISCHARGE DIAGNOSES: Active Hospital Problems Diagnosis Date Noted Acute kidney injury ([facility]) 09/20/2023 Resolved Problems No resolved problems to display. CONSULTANTS: Consulting Providers Provider Service Specialty Ronnie Fitzgerald MD Z Nephrology Nephrology Deanna Adams MD Cardiology Clinical Cardiac Electrophysiology [facility] -- Cardiology PROCEDURES: No admission procedures for hospital encounter. Things needing follow up: - Hospital Course Harris Castrejonis a 68 y.o.female with past medical history of essential hypertension, paroxysmal AFib s/p ablation 03/20 on Coumadin, type 2 diabetes mellitus on metformin, chronic systolic heart failure (EF 40-45%) CKD and obesity. Patient presented to [place] emergency department on 09/19/2023 with few days [...] K and bicarb. She was transferred to [facility] for further care. Patient was admitted [...] to discharge. Diuretic plan was reconciled by buffer machine, patient to follow-up with Nephrology in 1-2 [...] discharge. Patient was advised to follow-up with auto cleaner in the outpatient setting. While in ICU, [...] therapy Occupational therapy, who recommended discharge to longterm facility. Patient and family refused and elected [...] Your Medications These medications were sent to [facility] [address] [facility] [address] [facility] [address] bumetanide 2 mg tablet folic acid 1 [...] mL Adult diet Sonya Correa MD [address] [facility] [id number] Follow up Please follow up with Dr. Correa for evaluation of blood in the urine Carol Akins PA-C [address] [facility] [id number] Schedule an appointment as soon as possible for a visit in 1 week(s) Lilia Cox MD [address] [facility] [phone] Schedule an appointment as soon as possible for a visit in 1 week(s) Rafaela Allen MD [address] [facility] [id number] Schedule an appointment as soon as possible for a visit in 2 week(s) Sarika Sullivan MD [address] [facility] [address] Follow up in 2 week(s) Soy Talamantes MD [address] [facility] [facility] [id number] Schedule an appointment as soon as possible for a visit You can call and make an appointment with the hand gluer and slicer if you experience black stool or bloody stool Racquel Langston MD [address] [facility] [phone] Schedule an appointment as soon as possible [...] questions. Electronically signed by: ELVI SCHREIBER MD [facility], Department of Internal Medicine 10/05/23 [...] 145/90 Please follow-up with both the general wine bottle inspector (heart doctor) and EP wine bottle inspector (chiropractic assistant), you have a condition called atrial fibrillation [...] cannot be sent through Care Everywhere.Bumetanide, ADULT (Belgian)Folic Acid, ADULT (Belgian)Metoprolol, ADULT (Belgian)Midodrine, ADULT (Belgian)Pantoprazole, ADULT (Belgian)documented in this encounter [facility] [employer] [facility] 10-04-2023 Consult note Associated Order (s): IP CONSULT TO ELECTROPHYSIOLOGY Images from the original note were not included. [facility] Cardiology - Electrophysiology [address] [place], [place] [id number] CONSULTATION PATIENT NAME: Harris Castrejon : 1955 AGE: 68 y.o. Date of Admission: 09/20/2023 Date of Consultation: 10/04/2023 Primary Die Stamper: Dr. Consuelo Weinberg. Last visit July 2021 SUBJECTIVE REASON FOR CONSULT: AF management assistance CHIEF COMPLAINT: I was feeling really tired and weak HISTORY OF PRESENT ILLNESS: 68-year-old female who initially presented to [facility] with worsening generalized weakness over the past several days. She has a history of diabetes, hypertension, systolic heart failure, atrial flutter with prior ablation February 2021, hypertension, hyperlipidemia. [facility] prior to this CTI dependent RFA in [...] L5 Obesity Systolic and diastolic CHF, acute ([facility]) 09/03/2023 Visual impairment SURGICAL HISTORY has a [...] chronic heart failure EF 40 45% with [id number] MR, moderate TR. Diuresing per Nephrology Acute on chronic renal failure stage 4. Baseline creatinine 1.8. Patient did require dialysis 09/21-. Anemia. Unclear origin. GI service head sign off. Patient refused to have EGD/colonoscopy Hematuria. Pending outpatient follow-up Hypertension. Midodrine scheduled. Nonobstructive CAD [facility] 2020 PLAN EP evaluation for management AFib. [...] no questions for me. Will update attending SAMEERA CORDERO APRN-ALINA [facility] This note was completed using a voice biodiesel production technician system. Every effort was made to ensure accuracy. However, inadvertent computerized biodiesel production technician errors may be present. NICOLAS Baird 10/04/23 0028 [facility] I, SARIKA SULLIVAN MD, personally [...] injection 100 mcg 100 mcg subcutaneous Weekly Viricardo Miguel, DO 100 mcg at 09/29/23 1407 [...] premix) 2,000 mg intravenous PRN Shira Bialecki, TOBACCO WAREHOUSE MANAGER-PRODUCT GRADER Stopped at 09/30/23 1409 Or magnesium sulfate IVPB 4000 mg/100 mL in iso-osmotic water (40 mg/mL premix) 4,000 mg intravenous PRN Shira Bialecki, TOBACCO WAREHOUSE MANAGER-PRODUCT GRADER [START ON 10/05/2023] metOLazone (ZAROXOLYN) tablet 2.5 [...] mEq 20-50 mEq oral PRN Shira Bialecki, TOBACCO WAREHOUSE MANAGER-PRODUCT GRADER 30 mEq at 10/03/23 0628 Or potassium chloride (KAYCIEL) 20 mEq/15 mL solution 20-50 mEq 20-50 mEq oral PRN Shira Bialecki, TOBACCO WAREHOUSE MANAGER-PRODUCT GRADER potassium chloride (K-TAB,KLOR-CON) CR tablet 40 mEq 40 mEq oral BID Lilia Cox MD potassium chloride IVPB 10 mEq/50 mL in water (0.2 mEq/mL premix) 10 mEq intravenous PRN Shira Bialecki, TOBACCO WAREHOUSE MANAGER-PRODUCT GRADER Stopped at 09/30/23 1113 Or potassium chloride IVPB 10 mEq/100 mL in water (0.1 mEq/mL premix) 10 mEq intravenous PRN Shira Bialecki, TOBACCO WAREHOUSE MANAGER-PRODUCT GRADER sennosides-docusate sodium (SENOKOT-S) 8.6-50 mg 2 tablet 2 tablet oral Nightly Jaime Susan IV, TOBACCO WAREHOUSE MANAGER-PRODUCT GRADER 2 tablet at 09/26/232025 sodium phosphate 20 mmol in sodium chloride 0.9 % 250 mL IVPB 20 mmol intravenous PRN Shira Bialecki, TOBACCO WAREHOUSE MANAGER-PRODUCT GRADER Or sodium phosphate 20 mmol in sodium chloride 0.9 % 100 mL IVPB 20 mmol intravenous PRN Shira Bialecki, TOBACCO WAREHOUSE MANAGER-PRODUCT GRADER Or sod phos di, mono-K phos mono (K-PHOS NEUTRAL) 250 mg tablet 2 tablet 2 tablet oral PRN Shira Bialecki, TOBACCO WAREHOUSE MANAGER-PRODUCT GRADER sodium chloride 0.9 % flush 10 mL 10 mL intravenous Q96H Shiraz Danny, TOBACCO WAREHOUSE MANAGER-PRODUCT GRADER 10 mL at 10/03/23 1157 sodium chloride 0.9 % flush 10 mL 10 mL intravenous PRN Shiraz Danny, TOBACCO WAREHOUSE MANAGER-PRODUCT GRADER 10 mL at 09/21/23 1153 sodium chloride 0.9 % flush 10 mL 10 mL intravenous PRN Shiraz Danny, TOBACCO WAREHOUSE MANAGER-PRODUCT GRADER 10 mL at 09/21/23 1500 sodium chloride 0.9 % flush 10 mL 10 mL intravenous Q96H Shiraz Danny, TOBACCO WAREHOUSE MANAGER-PRODUCT GRADER 10 mL at 10/03/23 1157 sodium chloride 0.9 % flush 10 mL 10 mL intravenous PRN Shiraz Danny, TOBACCO WAREHOUSE MANAGER-PRODUCT GRADER 10 mL at 09/21/23 1153 sodium chloride 0.9 % flush 10 mL 10 mL intravenous PRN Shiraz Danny, TOBACCO WAREHOUSE MANAGER-PRODUCT GRADER 10 mL at 09/21/23 1500 sodium chloride 0.9 % flush 10 mL 10 mL intravenous Q8H Shiraz Danny, TOBACCO WAREHOUSE MANAGER-PRODUCT GRADER 10 mL at 10/03/23 1157 And sodium citrate 4 % (3 mL) flush 2 mL 2 mL intravenous Q8H Shiraz Danny, TOBACCO WAREHOUSE MANAGER-PRODUCT GRADER And sodium chloride 0.9 % flush 10 mL 10 mL intravenous PRN Shiraz Danny, TOBACCO WAREHOUSE MANAGER-PRODUCT GRADER And sodium chloride 0.9 % flush 10 mL 10 mL intravenous PRN Shiraz Danny, TOBACCO WAREHOUSE MANAGER-PRODUCT GRADER 10 mL at 09/30/23 1518 And sodium citrate 4 % (3 mL) flush 2 mL 2 mL intravenous PRN Shiraz Danny, TOBACCO WAREHOUSE MANAGER-PRODUCT GRADER sodium chloride 0.9 % flush 3 mL 3 mL intravenous Q12H Tanner Harris MD 3 mL at 10/04/23 0835 sodium chloride 0.9 % infusion 10 mL/hr intravenous Continuous PRN Salbador Howell, TOBACCO WAREHOUSE MANAGER-PRODUCT GRADER Stopped at 09/29/23 0141 sodium chloride 0.9 % infusion 10 mL/hr intravenous Continuous PRN Salbador Howell, TOBACCO WAREHOUSE MANAGER-PRODUCT GRADER Stopped at 09/25/23 0130 sodium chloride 0.9 % infusion 10 mL/hr intravenous Continuous PRN Salbador Howell, TOBACCO WAREHOUSE MANAGER-PRODUCT GRADER Stopped at 10/01/23 1507 sodium chloride 0.9 [...] mL 2 mL intravenous Q96H Shiraz Danny, TOBACCO WAREHOUSE MANAGER-PRODUCT GRADER 2 mL at 09/29/23 1425 sodium citrate 4 % (3 mL) flush 2 mL 2 mL intravenous PRN Shiraz Danny, TOBACCO WAREHOUSE MANAGER-PRODUCT GRADER 2 mL at 09/22/23 1151 sodium citrate 4 % (3 mL) flush 2 mL 2 mL intravenous Q96H Shiraz Danny, TOBACCO WAREHOUSE MANAGER-PRODUCT GRADER 2 mL at 09/29/23 1424 sodium citrate 4 % (3 mL) flush 2 mL 2 mL intravenous PRN Shiraz Danny, TOBACCO WAREHOUSE MANAGER-PRODUCT GRADER 2 mL at 09/22/23 1150 Laboratory CBC: [...] This note was completed using a voice biodiesel production technician system. Every effort was made to ensure accuracy. However, inadvertent computerized biodiesel production technician errors may be present. NUTRITION ADULT FOLLOW UP NUTRITION ASSESSMENT: Patient History: Brief Clinical Summary: Per notes, past medical history significant for paroxysmal atrial fibrillation on warfarin, type 2 diabetes mellitus on home metformin use, CHF decreased EF of 40-45%, atrial flutter ablation on 03/21/2021, hypertension, and hyperlipidemia. She was recently discharged on 09/05/2023 following treatment for an BRANDEE. She presented to [facility] on 09/19/2023 with complaints of [...] last 3 days Lab Units 10/01/23 0620 09/30/2331409/29/23 022 WBC X10E9/L 8.4 9.5 9.4 HEMOGLOBIN g/dL 8.0* 7.4* 7.8* HEMATOCRIT % 24.0* 22.3* 24.2* PLATELETS X10E9/L 135* 124* 100* MCV fL 95 95 96 Results from last 3 days Lab Units 10/01/23 0620 09/30/23 1526 09/30/23 0315 09/29/23 0950 09/29/23 0224 MAGNESIUM mg/dL 2.5 -- 1.9 -- 1.8 IONIZED MAGNESIUM mmol/L -- 0.86* -- 0.59 -- Results from last 3 days Lab Units 10/01/23 0620 09/30/2331409/29/23 0224 PHOSPHORUS mg/dL 2.9 3.1 3.7 CALCIUM, IONIZED mg/dL -- -- 4.5 Results from last 3 days Lab Units 10/01/23 0620 09/30/2331409/29/23 022 TOTAL BILIRUBIN mg/dL 1.0 0.7 0.9 Lab [...] (H) 09/13/2021 Lab Results Component Value Date [id number] 09/24/2023 Lab Results Component Value Date [...] premix) 1,000 mg intravenous PRN Shira Restrepo APRN-PRODUCT GRADER Or calcium gluconate IVPB 2000 mg/100 mL (20 mg/mL premix) 2,000 mg intravenous PRN Shira Restrepo, TOBACCO WAREHOUSE MANAGER-PRODUCT GRADER Or calcium gluconate 3,000 mg in sodium chloride 0.9 % 100 mL IVPB 3,000 mg intravenous PRN Shira Restrepo, TOBACCO WAREHOUSE MANAGER-PRODUCT GRADER darbepoetin stefania-polysorbate (ARANESP) injection 100 mcg 100 [...] 1 mg 1 mg oral Daily Keron GtzNICOLAS estrada 1 mg at 10/01/23 0910 glucagon HCL [...] mg/mL premix) 4,000 mg intravenous PRN Shira Restrepo APRN-ALINA metOLazone (ZAROXOLYN) tablet 10 mg 10 mg oral Daily Lilia Davie Cox MD 10 mg at 10/01/23 0910 [...] 20-50 mEq 20-50 mEq oral PRN Shira Restrepo APRN-ALINA Or potassium chloride (KAYCIEL) 20 mEq/15 mL solution 20-50 mEq 20-50 mEq oral PRN Shira Bialecki, TOBACCO WAREHOUSE MANAGER-PRODUCT GRADER potassium chloride (K-TAB,KLOR-CON) CR tablet 30 mEq 30 mEq oral Q6H Ulisses Silver MD 30 mEq at 10/01/23 0910 potassium chloride IVPB 10 mEq/50 mL in water (0.2 mEq/mL premix) 10 mEq intravenous PRN Shira Bialecki, TOBACCO WAREHOUSE MANAGER-PRODUCT GRADER Stopped at 09/30/23 1113 Or potassium chloride IVPB 10 mEq/100 mL in water (0.1 mEq/mL premix) 10 mEq intravenous PRN Shira Bayronecki, TOBACCO WAREHOUSE MANAGER-PRODUCT GRADER sennosides-docusate sodium (SENOKOT-S) 8.6-50 mg 2 tablet 2 tablet oral Nightly Jaime Susan IV, TOBACCO WAREHOUSE MANAGER-PRODUCT GRADER 2 tablet at 09/26/236 sevelamer (RENVELA) tablet 800 mg 800 mg oral TID with meals Vidhit Miguel, DO 800 mg at 10/01/23 0910 sodium phosphate 20 mmol in sodium chloride 0.9 % 250 mL IVPB 20 mmol intravenous PRN Shira Bialecki, TOBACCO WAREHOUSE MANAGER-PRODUCT GRADER Or sodium phosphate 20 mmol in sodium chloride 0.9 % 100 mL IVPB 20 mmol intravenous PRN Shira Bialecki, TOBACCO WAREHOUSE MANAGER-PRODUCT GRADER Or sod phos di, mono-K phos mono (K-PHOS NEUTRAL) 250 mg tablet 2 tablet 2 tablet oral PRN Shira Bialecki, TOBACCO WAREHOUSE MANAGER-PRODUCT GRADER sodium chloride 0.9 % flush 10 mL 10 mL intravenous Q96H Shiraz Danny, TOBACCO WAREHOUSE MANAGER-PRODUCT GRADER 10 mL at 09/25/23 1212 sodium chloride 0.9 % flush 10 mL 10 mL intravenous PRN Shiraz Danny, TOBACCO WAREHOUSE MANAGER-PRODUCT GRADER 10 mL at 09/21/23 1153 sodium chloride 0.9 % flush 10 mL 10 mL intravenous PRN Shiraz Danny, TOBACCO WAREHOUSE MANAGER-PRODUCT GRADER 10 mL at 09/21/23 1500 sodium chloride 0.9 % flush 10 mL 10 mL intravenous Q96H Shiraz Danny, TOBACCO WAREHOUSE MANAGER-PRODUCT GRADER 10 mL at 09/25/23 1212 sodium chloride 0.9 % flush 10 mL 10 mL intravenous PRN Shiraz Danny, TOBACCO WAREHOUSE MANAGER-PRODUCT GRADER 10 mL at 09/21/23 1153 sodium chloride 0.9 % flush 10 mL 10 mL intravenous PRN Shiraz Danny, TOBACCO WAREHOUSE MANAGER-PRODUCT GRADER 10 mL at 09/21/23 1500 sodium chloride 0.9 % flush 10 mL 10 mL intravenous Q8H Shiraz Danny, TOBACCO WAREHOUSE MANAGER-PRODUCT GRADER 10 mL at 09/30/23 2030 And sodium citrate 4 % (3 mL) flush 2 mL 2 mL intravenous Q8H Shiraz Danny, TOBACCO WAREHOUSE MANAGER-PRODUCT GRADER And sodium chloride 0.9 % flush 10 mL 10 mL intravenous PRN Shiraz Danny, TOBACCO WAREHOUSE MANAGER-PRODUCT GRADER And sodium chloride 0.9 % flush 10 mL 10 mL intravenous PRN Shiraz Danny, TOBACCO WAREHOUSE MANAGER-PRODUCT GRADER 10 mL at 09/30/23 1518 And sodium citrate 4 % (3 mL) flush 2 mL 2 mL intravenous PRN Shiraz Danny, TOBACCO WAREHOUSE MANAGER-PRODUCT GRADER sodium chloride 0.9 % flush 3 mL 3 mL intravenous Q12H Tanner Harris MD 3 mL at 10/01/23 0911 sodium chloride 0.9 % infusion 10 mL/hr intravenous Continuous PRN Salbador Matteder, TOBACCO WAREHOUSE MANAGER-PRODUCT GRADER Stopped at 09/29/23 0141 sodium chloride 0.9 % infusion 10 mL/hr intravenous Continuous PRN Salbador Matteder, TOBACCO WAREHOUSE MANAGER-PRODUCT GRADER Stopped at 09/25/23 0130 sodium chloride 0.9 % infusion 10 mL/hr intravenous Continuous PRN Salbador Matteder, TOBACCO WAREHOUSE MANAGER-PRODUCT GRADER Stopped at 09/30/23 0521 sodium chloride 0.9 % infusion 20 mL/hr intravenous Continuous PRN Tanner Harris MD Stopped at 09/28/23 1045 sodium chloride 0.9 % infusion 250 mL hemodialysis Continuous Vidhit Miguel, DO sodium chloride 0.9 % infusion 250 mL hemodialysis Continuous Vidhit Miguel, DO sodium citrate 4 % (3 mL) flush 2 mL 2 mL intravenous Q96H Shiraz Danny, TOBACCO WAREHOUSE MANAGER-PRODUCT GRADER 2 mL at 09/29/23 1425 sodium citrate 4 % (3 mL) flush 2 mL 2 mL intravenous PRN Shiraz Danny, TOBACCO WAREHOUSE MANAGER-PRODUCT GRADER 2 mL at 09/22/23 1151 sodium citrate 4 % (3 mL) flush 2 mL 2 mL intravenous Q96H Shiraz Danny, TOBACCO WAREHOUSE MANAGER-PRODUCT GRADER 2 mL at 09/29/23 1424 sodium citrate 4 % (3 mL) flush 2 mL 2 mL intravenous PRN Shiraz Danny, TOBACCO WAREHOUSE MANAGER-PRODUCT GRADER 2 mL at 09/22/23 1150 Nutrition Focused Physical Findings +HD catheter. Per RN flowsheets patient with fair appetite, last BM 09/30. Patient denies nausea and vomiting. Skin (per nursing flow sheets): Skin Color: Pale; [place] (09/30/231899) Skin Temp: Dry; Warm (09/30/231899) Wound [...] oz) Admit Weight: 131.8kg (Bed Scale, 09/20/23) [place] Body Weight: 57kg Weight Changes: 17 kg (12%) weight loss this admit, in some part at least fluid related as patient initially on dialysis and now on Bumex Current Body Mass Index: Body mass index is 42.12 kg/m . Comparative Standards: Estimated Energy Needs: 3506-9463 kcals daily. Method and weight used: 28-32 kcal/kg IBW Estimated Protein Needs: 68-86 grams daily. Method and weight used: 1.2-1.5g protein/kg IBW Estimated Fluid Needs: 2040-9599 ml daily. Method weight used: 28-32 ml/kg [...] intake, supplement needs/acceptance, GI function, POC. Candace RBOERTO, RD, LD Clinical Dietitian Associated Order(s): IP CONSULT TO CARDIOLOGY Images from the original note were not included. [facility] [address] [place] [address] HISTORY & PHYSICAL / CONSULT NOTE Harris [...] nonobstructive CAD, chronic systolic heart failure, and [id number] MR presented to the ED on 09/19/2023 [...] L5 Obesity Systolic and diastolic CHF, acute ([facility]) 09/03/2023 Visual impairment Previous Surgical History: Past Surgical History: Procedure Laterality Date Cardiac catheterization 02/16/2021 Performed by Kelli Su MD at [facility] CARDIAC CATH LABS Caval Tricuspid Isthmus RFA, Carto w/ICE N/A 03/21/2021 Performed by Lurdes Weinberg MD at [facility] (EP) Coronary angiogram and left ventricular gram/pressure N/A 02/16/2021 Performed by Kelli Su MD at [facility] CARDIAC CATH LABS Coronary fractional flow reserve N/A 02/16/2021 Performed by Kelli Su MD at [facility] CARDIAC CATH LABS Intravascular pressure measurement first vessel each additional vessel (fractional flow reserve) N/A 02/16/2021 Performed by Kelli Su MD at [facility] CARDIAC CATH LABS MYRINGOTOMY W/ TUBES TONSILLECTOMY Allergies: No Known Allergies Hospital Meds: Current Facility-Administered Medications Medication Dose Route Frequency Provider Last Rate Last Admin bumetanide (BUMEX) 3 mg in sodium chloride 0.9 % 50 mL IVPB 3 mg intravenous BID Vidhit Miguel, DO Stopped at 09/26/23 0912 calcium gluconate IVPB 1000 mg/50 mL (20 mg/mL premix) 1,000 mg intravenous PRN Salbador Howell APRN-PRODUCT GRADER Stopped at 09/26/23 2221 Or calcium gluconate [...] tablet 1 mg 1 mg oral Daily Colquittclaudine GtzNICOLAS estrada 1 mg at 09/26/23 0817 glucagon HCL injection 1 mg 1 mg intramuscular PRN NICOLAS Webb insulin lispro (HumaLOG) injection 2-10 Units 2-10 Units subcutaneous With meals and nightly NICOLAS Webb 2 Units at 09/26/23 2310 iron sucrose (VENOFER) IVPB 200 mg/100 mL in sodium chloride 0.9% (CMPD premix) 200 mg intravenous Every Other Day Vidhit Miguel, DO Stopped at 09/26/23 0834 magnesium [...] mg/mL) infusion 0.5-2.5 mcg/kg/min intravenous Continuous Danie Reid, TOBACCO WAREHOUSE MANAGER-PRODUCT GRADER 9.4 mL/hr at 09/27/23 0016 0.5 mcg/kg/min at 09/27/23 0016 potassium chloride (K-TAB,KLOR-CON) CR tablet 20 mEq 20 mEq oral Q6H Lilia Cox MD 20 mEq at 09/27/23 0140 sennosides-docusate sodium (SENOKOT-S) 8.6-50 mg 2 tablet 2 tablet oral Nightly Samanta Wright MD 2 tablet at 09/26/23 2026 sevelamer (RENVELA) tablet 800 mg 800 mg oral TID with meals Dede Rivera, DO 800 mg at 09/26/23 1717 sodium chloride 0.9 % flush 10 mL 10 mL intravenous Q96H Shiraz Danny, TOBACCO WAREHOUSE MANAGER-PRODUCT GRADER 10 mL at 09/25/23 1212 sodium chloride 0.9 % flush 10 mL 10 mL intravenous PRN Shiraz Danny, TOBACCO WAREHOUSE MANAGER-PRODUCT GRADER 10 mL at 09/21/23 1153 sodium chloride 0.9 % flush 10 mL 10 mL intravenous PRN Shiraz Danny, TOBACCO WAREHOUSE MANAGER-PRODUCT GRADER 10 mL at 09/21/23 1500 sodium chloride 0.9 % flush 10 mL 10 mL intravenous Q96H Shiraz Danny, TOBACCO WAREHOUSE MANAGER-PRODUCT GRADER 10 mL at 09/25/23 1212 sodium chloride 0.9 % flush 10 mL 10 mL intravenous PRN Shiraz Danny, TOBACCO WAREHOUSE MANAGER-PRODUCT GRADER 10 mL at 09/21/23 1153 sodium chloride 0.9 % flush 10 mL 10 mL intravenous PRN Shiraz Danny, TOBACCO WAREHOUSE MANAGER-PRODUCT GRADER 10 mL at 09/21/23 1500 sodium chloride 0.9 % flush 10 mL 10 mL intravenous Q8H Shiraz Danny, TOBACCO WAREHOUSE MANAGER-PRODUCT GRADER 10 mL at 09/26/23 1208 And sodium citrate 4 % (3 mL) flush 2 mL 2 mL intravenous Q8H Shiraz Danny, TOBACCO WAREHOUSE MANAGER-PRODUCT GRADER And sodium chloride 0.9 % flush 10 mL 10 mL intravenous PRN Shiraz Danny, TOBACCO WAREHOUSE MANAGER-PRODUCT GRADER And sodium chloride 0.9 % flush 10 mL 10 mL intravenous PRN Shiraz Danny, TOBACCO WAREHOUSE MANAGER-PRODUCT GRADER 10 mL at 09/26/23 0305 And sodium citrate 4 % (3 mL) flush 2 mL 2 mL intravenous PRN Shiraz Danny, TOBACCO WAREHOUSE MANAGER-PRODUCT GRADER sodium chloride 0.9 % flush 3 mL 3 mL intravenous Q12H Tanner Harris MD 3 mL at 09/26/23 2311 sodium chloride 0.9 % infusion 10 mL/hr intravenous Continuous PRN Salbador Howell, TOBACCO WAREHOUSE MANAGER-PRODUCT GRADER sodium chloride 0.9 % infusion 10 mL/hr intravenous Continuous PRN Salbador Howell, TOBACCO WAREHOUSE MANAGER-PRODUCT GRADER Stopped at 09/25/23 0130 sodium chloride 0.9 % infusion 10 mL/hr intravenous Continuous PRN Salbador Howell, TOBACCO WAREHOUSE MANAGER-PRODUCT GRADER 10 mL/hr at 09/26/23 0635 10 mL/hr at 09/26/23 0635 sodium chloride 0.9 % infusion 20 mL/hr intravenous Continuous PRN Tanner Harris MD sodium chloride 0.9 % infusion 250 mL hemodialysis Continuous Vidhit Miguel, DO sodium chloride 0.9 % infusion 250 mL hemodialysis Continuous Vidhit Miguel, DO sodium citrate 4 % (3 mL) flush 2 mL 2 mL intravenous Q96H Shiraz Danny, TOBACCO WAREHOUSE MANAGER-PRODUCT GRADER 2 mL at 09/25/23 1213 sodium citrate 4 % (3 mL) flush 2 mL 2 mL intravenous PRN Shiraz Danny, TOBACCO WAREHOUSE MANAGER-PRODUCT GRADER 2 mL at 09/22/23 1151 sodium citrate 4 % (3 mL) flush 2 mL 2 mL intravenous Q96H Shiraz Danny, TOBACCO WAREHOUSE MANAGER-PRODUCT GRADER 2 mL at 09/25/23 1213 sodium citrate 4 % (3 mL) flush 2 mL 2 mL intravenous PRN Shiraz Danny, TOBACCO WAREHOUSE MANAGER-PRODUCT GRADER 2 mL at 09/22/23 1150 Home Meds: [...] from last 7 days Lab Units 09/26/23 1927 09/26/230 09/25/2331409/24/23 0428 SODIUM mmol/L -- 144 142 142 POTASSIUM mmol/L 3.5 3.4* 3.3* 3.5 CHLORIDE mmol/L -- 103 102 103 CO2 mmol/L -- BUN mg/dL -- 78* 68* 62* CREATININE mg/dL -- 3.66* 3.79* 4.11* CALCIUM mg/dL -- 8.1* 8.0* 7.7* PHOSPHORUS mg/dL -- 5.4* 5.7* 5.4* MAGNESIUM mg/dL -- 2.2 2.1 2.1 PT/INR: Results from last 7 days Lab Units 09/26/23 03009/25/2331409/24/23427 PROTIME sec 24.3* 20.3* 18.2* INR 2.1* 1.8* 1.6* APTT: MAG: Results from last 7 days Lab Units 09/26/23 03009/25/2331409/24/23427 MAGNESIUM mg/dL 2.2 2.1 2.1 D Dimer: [...] normalization when appropriate ----- Finalized by Charlie eMndoza MD on 09/21/2023 10:45 AM X-ray chest [...] 40-45% per TTE 09/04/2023 Nonobstructive CAD per [facility] Acute hypoxemic respiratory failure secondary to #2 [...] This note was completed using a voice biodiesel production technician system. Every effort was made to ensure accuracy. However, inadvertent computerized biodiesel production technician errors may be present. Amrita Lira PA-C 09/27/23 0352 [facility] I have personally performed [...] 40-45% Nonobstructive atherosclerotic heart disease of the [place] coronary arteries without angina pectoris Acute respiratory [...] This note was completed using a voice biodiesel production technician system. Every effort was made to ensure accuracy. However, inadvertent computerized biodiesel production technician errors may be present. Associated Order(s): IP CONSULT TO HEMATOLOGY Images from the original note were not included. [facility] Gurpreet Nagy M.D. Racquel Langston M.D. Sonya Ruelas M.D. Sunni Stack M.D. Tara Funes, TOBACCO WAREHOUSE MANAGER-PRODUCT GRADER Keron Stahl, TOBACCO WAREHOUSE MANAGER-PRODUCT GRADER Tiffanie Segal, TOBACCO WAREHOUSE MANAGER-PRODUCT GRADER Rufina Dowd, TOBACCO WAREHOUSE MANAGER-PRODUCT GRADER JUAN Brown M.D. Feng Jiang, M.D. Jeffrey Muler, M.D. Rose GeorgeD. Carole Gaviria, TOBACCO WAREHOUSE [facility] Jenny Unique, TOBACCO WAREHOUSE MANAGERCOO[facility] Tian Liamsashailia, TOBACCO WAREHOUSE MANAGER[facility] Yeny Medrano, TOBACCO WAREHOUSE MANAGER[facility] Mendy Rodrigues, TOBACCO WAREHOUSE MANAGER-[facility] CONSULT NOTE Reason for consult: for thrombocytopenia History of present illness: The patient is a 68 y.o. female with a PMHx of atrial fibrillation, HTN, CKD now on dialysis, CHF, and obesity. She presented to [facility] from [facility] with complaints of generalized weakness. She was recently admitted earlier in August and diagnosed with kidney disease, but was not on dialysis. Upon arrival to [place] ER, she was found to have an INR of 16.6, a creatinine of 6.52, while being hypotensive requiring pressor support. She was transferred to [facility] for further evaluation and management. During her [...] 02/16/2021 Performed by Kelli Su MD at [facility] CARDIAC CATH LABS Caval Tricuspid Isthmus RFA, Carto w/ICE N/A 03/21/2021 Performed by Lurdes Weinberg MD at [facility] (EP) Coronary angiogram and left ventricular gram/pressure N/A 02/16/2021 Performed by Kelli Su MD at [facility] CARDIAC CATH LABS Coronary fractional flow reserve N/A 02/16/2021 Performed by Kelli Su MD at [facility] CARDIAC CATH LABS Intravascular pressure measurement first vessel each additional vessel (fractional flow reserve) N/A 02/16/2021 Performed by Kelli Su MD at [facility] CARDIAC CATH LABS MYRINGOTOMY W/ TUBES TONSILLECTOMY [...] membrane of both ears Typical atrial flutter ([facility]) Coronary artery disease involving [place] coronary artery of [place] heart without angina pectoris Tachycardia induced cardiomyopathy ([facility]) Type 2 diabetes mellitus with circulatory disorder, without long-term current use of insulin ([facility]) Other hyperlipidemia Paroxysmal atrial fibrillation ([facility]) BRANDEE (acute kidney injury) ([facility]) Hyperkalemia Bilateral lower extremity edema Systolic and diastolic CHF, acute ([facility]) Acute kidney injury ([facility]) Assessment/Plan Impression: #. Thrombocytopenia - Platelet count [...] smear, reticulocyte, PF4, B12, Folate, Iron, Ferritin, [id number] all pending. Continue supportive care per primary and consulted services. Patient lives in [place] and could follow up with Dr. Barnes [...] Thank you for the consultation. Keron Stahl, TOBACCO WAREHOUSE MANAGER-PRODUCT GRADER [facility] [address] [place] [address] [email or web address] Chat is my preferred mode of contact. For after hours (evening, weekends, holidays) Hematology Oncology needs, please call the battery container tester aluminum service [phone]. Please ask for the MD battery container tester aluminum. September 24, 2023, 2:21 PM NICOLAS Chavez 09/24/23 3770 I have personally performed a face to [...] MD Associated Order(s): IP CONSULT TO GASTROENTEROLOGY [facility] Initial Gastroenterology/Hepatology Consultation Note IDENTIFYING DATA PATIENT: [...] L5 Obesity Systolic and diastolic CHF, acute ([facility]) 09/03/2023 Visual impairment Past Surgical History: Procedure Laterality Date Cardiac catheterization 02/16/2021 Performed by Kelli Su MD at [facility] CARDIAC CATH LABS Caval Tricuspid Isthmus RFA, Carto w/ICE N/A 03/21/2021 Performed by Lurdes Weinberg MD at [facility] HR (EP) Coronary angiogram and left ventricular gram/pressure N/A 02/16/2021 Performed by Kelli Su MD at [facility] CARDIAC CATH LABS Coronary fractional flow reserve N/A 02/16/2021 Performed by Kelli Su MD at [facility] CARDIAC CATH LABS Intravascular pressure measurement first vessel each additional vessel (fractional flow reserve) N/A 02/16/2021 Performed by Kelli Su MD at [facility] CARDIAC CATH LABS MYRINGOTOMY W/ TUBES TONSILLECTOMY [...] 50 mL IVPB, 3 mg, intravenous, BID, Ddee Rivera DO, Stopped at 09/24/23 0841 calcium gluconate [...] gel 15 g, 15 g, oral, PRN, NICOALS Webb dextrose 5 % (D5W) infusion, 100 [...] mL, 10 mL, intravenous, Q96H, Shiraz Danny, TOBACCO WAREHOUSE MANAGER-PRODUCT GRADER sodium chloride 0.9 % flush 10 mL, 10 mL, intravenous, PRN, Shiraz Danny, TOBACCO WAREHOUSE MANAGER-PRODUCT GRADER, 10 mL at 09/21/23 1153 sodium chloride 0.9 % flush 10 mL, 10 mL, intravenous, PRN, Shiraz Danny, TOBACCO WAREHOUSE MANAGER-PRODUCT GRADER, 10 mL at 09/21/23 1500 sodium chloride 0.9 % flush 10 mL, 10 mL, intravenous, Q96H, Shiraz Danny, TOBACCO WAREHOUSE MANAGER-PRODUCT GRADER sodium chloride 0.9 % flush 10 mL, 10 mL, intravenous, PRN, Shiraz Danny, TOBACCO WAREHOUSE MANAGER-PRODUCT GRADER, 10 mL at 09/21/23 1153 sodium chloride 0.9 % flush 10 mL, 10 mL, intravenous, PRN, Shiraz Danny, TOBACCO WAREHOUSE MANAGER-PRODUCT GRADER, 10 mL at 09/21/23 1500 sodium chloride [...] mL, 2 mL, intravenous, PRN, Shiraz Delgado TOBACCO WAREHOUSE MANAGER-PRODUCT GRADER sodium chloride 0.9 % flush 3 mL, 3 mL, intravenous, Q12H, Tanner Harris MD, 3 mL at 09/24/23 1217 sodium chloride 0.9 % infusion, 10 mL/hr, intravenous, Continuous PRN, Salbador Howell APRN-PRODUCT GRADER sodium chloride 0.9 % infusion, 10 mL/hr, [...] mL, 2 mL, intravenous, Q96H, Shiraz Danny, TOBACCO WAREHOUSE MANAGER-PRODUCT GRADER sodium citrate 4 % (3 mL) flush 2 mL, 2 mL, intravenous, PRN, Shiraz Delgado, TOBACCO WAREHOUSE MANAGER-PRODUCT GRADER, 2 mL at 09/22/23 1151 sodium citrate 4 % (3 mL) flush 2 mL, 2 mL, intravenous, Q96H, Shiraz Danny, TOBACCO WAREHOUSE MANAGER-PRODUCT GRADER sodium citrate 4 % (3 mL) flush 2 mL, 2 mL, intravenous, PRN, Shiraz Delgado TOBACCO WAREHOUSE MANAGER-PRODUCT GRADER, 2 mL at 09/22/23 1150 sodium zirconium cyclosilicate (LOKELMA) packet 10 g, 10 g, oral, Daily with lunch, Salbador Howell APRN-ALINA, 10 g at 09/24/23 1200 PRNs: albumin [...] participate in the care of Harris Castrejon. Sol Brennan APRN-PRODUCT GRADER [facility] [address] [place] [address] PH: [phone] Sol Fatima NICOLAS Brennan 09/24/23 1630 Urology Consultation Patient: Harris Castrejon [...] and saline bolus and was transferred to [facility] for further evaluation. On arrival, [...] L5 Obesity Systolic and diastolic CHF, acute ([facility]) 09/03/2023 Visual impairment Past Surgical History: Past Surgical History: Procedure Laterality Date Cardiac catheterization 02/16/2021 Performed by Kelli Su MD at [facility] C[facility] CATH [facility] Caval Tricuspid Isthmus RFA, Carto w/ICE N/A 03/21/2021 Performed by Lurdes Weinberg MD at [facility] ([facility]) Coronary angiogram and left ventricular gram/pressure N/A 02/16/2021 Performed by Kelli Su MD at [facility] CARDIAC CATH LABS Coronary fractional flow reserve N/A 02/16/2021 Performed by Kelli Su MD at [facility] CARDIAC CATH LABS Intravascular pressure measurement first vessel each additional vessel (fractional flow reserve) N/A 02/16/2021 Performed by Kelli Su MD at [facility] CARDIAC CATH LABS MYRINGOTOMY W/ TUBES TONSILLECTOMY [...] -- -- 82 16 98 % -- 12/22/23 0628 -- (!) 33.6 C (92.4 F) Temporal [...] saline fluid bolus. Patient was transferred to [facility] for further evaluation. Nephrology is [...] EF 40-45% with left ventricular hypertrophy noted. [id number] mitral regurgitation noted. Moderate tricuspid regurgitation noted. [...] 03/21/2021 Performed by Lurdes Weinberg MD at [facility] (EP) Coronary angiogram and left ventricular gram/pressure N/A 02/16/2021 Performed by Kelli Su MD at [facility] Coronary fractional flow reserve N/A 02/16/2021 Performed by Kelli Su MD at [facility] CARDIAC CATH LABS Intravascular pressure measurement first vessel each additional vessel (fractional flow reserve) N/A 02/16/2021 Performed by Kelli Su MD at [facility] CARDIAC CATH LABS MYRINGOTOMY W/ TUBES TONSILLECTOMY [...] the patient's care. Please contact me at [phone] (Office) or [phone] (Answering service) with any questions. Dede Rivera DO [facility] This note was created with the assistance of a speech-recognition program. Although the intention is to generate a document that actually reflects the content of the visit, no guarantees can be provided that every mistake has been identified and corrected by editing. documented in this encounter [facility] 10-04-2023 History of Present illness Narrative Esl Instructor is looking ahead at the 60 day OD list. The patient was admitted to [facility] 09/20/23. Her name was added [...] Insertion Post-Procedure Diagnose(s): Hyperkalemia; Acute kidney injury ([facility]) PREOPERATIVE DIAGNOSIS: BRANDEE on CKD 4 Hyperkalemia [...] to verify the correct patient, procedure, equipment, retail support manager and site/side marked as required. Fire Risk [...] [place] 09/21/23 1052 documented in this encounter [facility] 09-20-2023 History and physical note CRITICAL CARE [...] treatment for an BRANDEE. She presented to [facility] on 09/19/2023 with complaints of [...] normal saline prior to being transferred to [facility] for further evaluation. Upon evaluation in the [...] L5 Obesity Systolic and diastolic CHF, acute ([facility]) 09/03/2023 Visual impairment Past Surgical History: Procedure Laterality Date Cardiac catheterization 02/16/2021 Performed by Kelli Su MD at [facility] CARDIAC CATH LABS Caval Tricuspid Isthmus RFA, Carto w/ICE N/A 03/21/2021 Performed by Lurdes Weinberg MD at [facility] (EP) Coronary angiogram and left ventricular gram/pressure N/A 02/16/2021 Performed by Kelli Su MD at [facility] CARDIAC CATH LABS Coronary fractional flow reserve N/A 02/16/2021 Performed by Kelli Su MD at [facility] CARDIAC CATH LABS Intravascular pressure measurement first vessel each additional vessel (fractional flow reserve) N/A 02/16/2021 Performed by Kelli Su MD at [facility] CARDIAC CATH LABS MYRINGOTOMY W/ TUBES TONSILLECTOMY [...] Procedure Component Value Units Date/Time Blood culture [[id number]] Collected: 09/19/232352 Specimen: Blood, Peripheral Draw Updated: 09/20/2355 Blood culture [[id number]] Collected: 09/19/232352 Specimen: Blood, Peripheral Draw Updated: 09/20/2355 SARS/FLU A+B/RSV by NAAT/Molecular (M4RT Collection Tube) [[id number]] Collected: 09/19/23 2326 Specimen: Nasopharynx Updated: 09/20/23 0029 FLU A PCR Negative FLU B PCR Negative RSV by PCR Negative SARS CoV 2 BY PCR Not Detected Patient Active Problem List Diagnosis Cerumen debris on tympanic membrane of both ears Typical atrial flutter ([facility]) Coronary artery disease involving [place] coronary artery of [place] heart without angina pectoris Tachycardia induced cardiomyopathy ([facility]) Type 2 diabetes mellitus with circulatory disorder, without long-term current use of insulin ([facility]) Other hyperlipidemia Paroxysmal atrial fibrillation ([facility]) BRANDEE (acute kidney injury) ([facility]) Hyperkalemia Bilateral lower extremity edema Systolic and diastolic CHF, acute ([facility]) Acute kidney injury ([facility]) ASSESSMENT: BRANDEE on ARF w/ baseline CKD [...] Hold home antihypertensives, metformin, and warfarin Claudia changer for hypothermia correction Q6H potassium recheck while patient is rewarming Levophed for MAP > 65, wean as tolerated SSI for glucose control Pepcid for GI prophylaxis NICOLAS Webb POC d/w Dr. Eng, further orders to follow. Critical Care Time: 34 minutes [x] This patient, with a critical illness, requires constant monitoring and titration of care by a Critical Care Photo Mask Processor. Failure to do so may result in further organ system failure, imminent deterioration, or . NICOLAS Webb 09/20/23 0747 documented in this [facility] CERVICAL SPINE WO CONT [...] Watson Ceja MD on 09/20/2023 1:42 AM [facility] Evaluation note Diagnosis Acute kidney injury (CMS-HCC)- Primary Acute kidney injury (CMS-HCC) Hyperkalemia Hyperpotassemia Folate deficiency Other B-complex deficiencies Systolic and diastolic CHF, acute (CMS-HCC) Type 2 diabetes mellitus with other circulatory complication, without long-term current use of insulin (CMS-HCC) documented [facility] Diagnosis Typical atrial flutter (CMS-HCC)- Primary documented [facility] Diagnosis Rectal cancer (CMS-HCC)- Primary Malignant neoplasm of rectum documented [facility]* Diagnosis Esophagitis- Primary Unspecified esophagitis documented in this encounter [facility]* Diagnosis Septic shock (CMS-HCC)- [...] SystemInstructionsNot on filedocumented in this encounter [facility] SystemInstructionsNot on filedocumented in this encounter [facility] [...] care provider Elvi Schreiber MD [address] [employer] [address] [place] [id number] Referral ID Status Reason Start Date Expiration Date V isits Requested Visits Authorized [id number] Pending Review 10/04/2023 10/03/2024 1 1 Specialty Diagnoses / Procedures Referred By Contac t Referred To Contact Procedures Adult diet Elvi Schreiber MD [address] [place] [address] Referral ID Status Reason Start Date Expiration Date V isits Requested Visits Authorized [id number] Pending Review 10/04/2023 10/03/2024 1 1 Specialty Diagnoses / Procedures Referred By Contac t Referred To Contact Radiology Diagnoses Rectal cancer (CMS-HCC) Procedures MR pelvis with and without contrast Mitra Crowell MD [address] [facility] [place] [address] Referral ID Status Reason Start Date Expiration Date V isits Requested Visits Authorized [id number] Pending Review 12/16/2023 12/15/2024 1 1 Specialty Diagnoses / Procedures Referred By Contac t Referred To Contact Diagnoses Esophagitis Procedures EGD Mary Kay Newell, [employer]BAC[employer] WAREHOUSE MANAGER-PRODUCT GRADER [address] [address] Referral ID Status Reason Start Date Expiration Date V isits Requested Visits Authorized [id number] Pending Review 12/09/2023 12/08/2024 1 1 Specialty Diagnoses / Procedures Referred By Contac t Referred To Contact Procedures Wound care (specify) Brandon Carrillo MD [address] [place] [address] Referral ID Status Reason Start Date Expiration Date V isits Requested Visits Authorized [id number] Pending Review 12/28/2023 12/27/2024 1 1 Referral ID Status Reason Start Date Expiration Date V isits Requested Visits Authorized [id number] Pending Review 12/28/2023 12/27/2024 1 1 Specialty Diagnoses / Procedures Referred By Contac t Referred To Contact Procedures Adult diet Brandon Carrillo MD [address] [place] [address] Referral ID Status Reason Start Date Expiration Date V isits Requested Visits Authorized [id number] Pending Review 12/28/2023 12/27/2024 1 1 Summary Purpose Family History No Family History Records FoundNo Family History Records FoundNo Family History Records Found Additional Source Comments Care Teams (unrecognized sec tion and content) Resident Care Aide Relationship Specialty Start Date End Date Carol Akins PA-C [address] [place] [id number] PCP - General Physician Binder Coverstitch 09/19/23 Resident Care Aide Relationship Specialty Start Date End Date Carol Akins PA-C [address] [place] [address] PCP - General Physician Binder Coverstitch 09/19/23 Resident Care Aide Relationship Specialty Start Date End Date Carol Akins PA-C [address] [place] [address] PCP - General Physician Binder Coverstitch 09/19/23 Resident Care Aide Relationship Specialty Start Date End Date Carol Akins PA-C [address] [place] [address] PCP - General Physician Binder Coverstitch 09/19/23 Resident Care Aide Relationship Specialty Start Date End Date Carol Akins PA-C [address] [place] [id number] PCP - General Physician Binder Coverstitch 09/19/23 Resident Care Aide Relationship Specialty Start Date End Date Carol Akins PA-C [address] [place] [address] PCP - General Physician Binder Coverstitch 09/19/23 Resident Care Aide Relationship Specialty Start Date End Date Carol Akins PA-C [address] [place] [phone] PCP - General Physician Binder Coverstitch 09/19/23 Resident Care Aide Relationship Specialty Start Date End Date Carol Akins PA-C [address] [place] [address] PCP - General Physician Binder Coverstitch 09/19/23 Resident Care Aide Relationship Specialty Start Date End Date Carol Akins PA-C [address] [place] [address] PCP - General Physician Binder Coverstitch 09/19/23 Resident Care Aide Relationship Specialty Start Date End Date Carol Akins PA-C [address] [place] [address] PCP - General Physician Binder Coverstitch 09/19/23 Resident Care Aide Relationship Specialty Start Date End Date Carol Akins PA-C [address] [place] [address] PCP - General Physician Binder Coverstitch 09/19/23 Resident Care Aide Relationship Specialty Start Date End Date Carol Akins PA-C [address] [place] [address] PCP - General Physician Binder Coverstitch 09/19/23 Resident Care Aide Relationship Specialty Start Date End Date Carol Akins PA-C [address] [place] [address] PCP - General Physician Binder Coverstitch 09/19/23 Resident Care Aide Relationship Specialty Start Date End Date Carol Akins PA-C [address] [place], [place] [id number] PCP - General Physician Binder Coverstitch 09/19/23 Reason for Visit (unrecogniz ed section and content) Specialty Diagnoses / Procedures Referred By Contac t Referred To Contact Diagnoses Acute kidney injury ([facility]) Acute kidney injury Steven, Tanner Cordero MD [address] [place] [address] Referral ID Status Reason Start Date Expiration Date Visits Re quested Visits Authorized [id number] 1 1 Reason Onset Date Comments Hospital Follow-up 11/13/2023 2-4 week foll ow up Reason Onset Date Comments Hospital Follow-up 11/25/2023 Reason Onset Date Comments Clearance 12/10/2023 Reason Onset Date Comments Hospital Follow-up 12/18/2023 2-4 week F/U Reason Comments Atrial Fibrillation Specialty Diagnoses / Procedures Referred By Contac t Referred To Contact Diagnoses Atrial fibrillation with RVR ([facility]) Abnormal heart rate Chronic wound infection of abdomen, initial encounter Septic shock ([facility]) Pneumonia of right upper lobe due to infectious organism Elevated troponin Zuri Herrera MD [address] [address] Referral ID Status Reason Start Date Expiration Date Visits Re quested Visits Authorized [id number] 1 1 Scheduled Active and Recently Administ ered Medications (unrecognized section and content) Medication Order 10/03/2023 10/04/2023 10/05/2023 acetaZOLAMIDE (DIAMOX) 12 hr capsule 500 mg 500 mg, oral, 2 times daily, First dose on Sat10/04/23 at 1315, Look-alike/sound-alike medication - verify indication for use. Do not crush. 1707 (Given - Provider: Arash Hwang, ALONDRA)2100 (Not Given - Provider: Jenny Bob, ALONDRA - Reason: Other - Comment: already given) 0920 (Given - Provider: Clementine Schulte RN)2100 (Due) bumetanide (BUMEX) tablet 2 mg (CANCELED) 2 mg, oral, 2 times daily before meals, First dose on Sat10/01/23 at 1600 0525 (Given - Provider: Jenny Bob, ALONDRA)1611 (Given - Provider: Charlie Aleman, ALONDRA) 0602 (Given - Provider: Jenny Bob, RN) bumetanide (BUMEX) tablet 2 mg 2 mg, oral, 2 times daily before meals, First dose (after last modification) on Sat10/04/23 at 1600 1707 (Given - Provider: Arash Hwang, ALONDRA) 0553 (Given - Provider: Jenny Bob, RN)1600 (Due) darbepoetin stefania-polysorbate (ARANESP) injection 100 mcg [...] for use. 1226 (Given - Provider: Charlie Aleman, ALONDRA) digoxin (LANOXIN) injection 250 mcg (COMPLETED) 250 mcg, intravenous, Once, On Sat10/03/23 at 1630, For 1 dose, Administer IVP [...] use. 0845 (Given - Provider: Charlie Aleman RN)2019 (Given - Provider: Jenny Bob RN) 1004 [...] Bob RN) 0835 (Given - Provider: Arash Hwang RN) potassium chloride (K-TAB,KLOR-CON) CR tablet 40 mEq 40 mEq, oral, 2 times daily, First dose (after last modification) on Sat10/04/23 at 1300, Hold for potassium more than 4.5 Do not crush or chew. 1300 (Not Given - Provider: Arash Hwang RN - Reason: Other - Comment: schedule change.)2015 (Given - Provider: Jenny Bob RN) 918 (Given - Provider: Clementine Schulte RN)2099 (Due) [...] Bob RN) 0835 (Given - Provider: Arash Hwang RN)2016 (Given - Provider: Jenny Bob RN) 0921 (Given - Provider: Clementine Schulte RN)2100 (Due - Provider: Varsha Amaya [facility]) sodium citrate 4 % (3 [...] levels 0628 (See Alternative - Provider: Jenny Bob RN) 0944 (See Alternative - Provider: Clementine Schulte [...] THEN 0.9% Sodium Chloride 10 mL IVP. (warehouse engineer: flush at beginning of each hemodialysis treatment). sodium chloride 0.9 % flush 10 mL 10 mL, intravenous, As needed, line care, Starting on 09/21/23 at 1111, Arterial Lumen. 0.9% Sodium Chloride 10 mL IVP THEN 4% sodium citrate (0.2 grams/5 mL) IVP equal to lumen volume after use. (warehouse engineer: flush and change caps after each hemodialysis treatment) sodium chloride 0.9 % flush 10 mL 10 mL, intravenous, As needed, line care, Starting on 09/21/23 at 1111, Venous Lumen. Before use aspirate lumen and discard lumen volume THEN 0.9% Sodium Chloride 10 mL IVP. (warehouse engineer: flush at beginning of each hemodialysis treatment) sodium chloride 0.9 % flush 10 mL 10 mL, intravenous, As needed, line care, Starting on 09/21/23 at 1111, Venous Lumen. 0.9% Sodium Chloride 10 mL IVP THEN 4% sodium citrate (0.2 grams/5 mL) IVP equal to lumen volume after use. (warehouse engineer: flush and change caps after each hemodialysis [...] a maximum of 2 mL, after use. (warehouse engineer: flush and change caps after each hemodialysis treatment) sodium citrate 4 % (3 mL) flush 2 mL 2 mL, intravenous, As needed, line care, Starting on 09/21/23 at 1111, Venous Lumen. IVP equal to lumen volume, up to a maximum of 2 mL, after use. (warehouse engineer: flush and change caps after each hemodialysis [...] or chew. 1152 (Given - Provider: Lucy Soloomn RN) 1008 (Given - Provider: Yareli Ny [...] Yareli Ny RN)2313 (Given - Provider: Lyn Angela RN) 899 (Due)2099 (Due) metoprolol (LOPRESSOR) injection 5 mg (COMPLETED) 5 mg, intravenous, Once, On Linda 12/26/23 at 1215, For 1 dose, Administer right before patient go down for the CTA Coronary Arteries. Look-alike/sound-alike medication - verify indication for use. 09 (Given - Provider: Lucy Solomon RN) metoprolol tartrate (LOPRESSOR) tablet 100 mg 100 mg, oral, 2 times daily, First dose (after last modification) on Linda 12/26/23 at 2100, Look-alike/sound-alike medication - verify indication for use. 1152 (Given - Provider: Lucy Solomon RN)2109 (Not Given - Provider: Lyn Angela RN - Reason: Other - Comment: pt unable to swallow pills at this time to drosy from earlier medication) 1008 (Given - Provider: Yareli Ny RN)2313 (Given - Provider: Lyn Angela, RN) 09 (Due)2099 (Due) pantoprazole (PROTONIX) EC tablet 40 mg [...] 0830 0638 (Rate/Dose Verify - Provider: Deborah Estrella, RN)1133 (New Bag - Provider: Lucy Solomon, RN) 0058 (New Bag - Provider: Lyn Angela, RN)1530 (Stop Bag - Provider: Yareli Ny, ALONDRA) PRN Medication Order 12/27/2023 12/28/2023 12/29/2023 acetaminophen (TYLENOL EXTRA STRENGTH) tablet 500 mg 500 mg, oral, Every 6 hours PRN, mild pain - pain scale 1-3, moderate pain - pain scale 4-6, Starting on Sat12/22/23 at 1748, Indications: fever, headache disorder, pain 0055 (Given - Provider: Lyn Angela, ALONDRA) ALPRAZolam (XANAX) tablet 0.5 mg (COMPLETED) 0.5 [...] Document: [email or web address]\[email or web address]\EP IC_Reference\Orders\Respirat ory Care Guidelines\CPG Bronchodilator 2020.pdf LORazepam (ATIVAN) injection 2 mg (COMPLETED) 2 [...] to maintain patency of lines, Starting on [place] 12/22/23 at 1559 sodium chloride 0.9 % radiology injection 80 mL, intravenous, Once in imaging, pre/post contrast, Starting on [place] 12/22/23 at 1424, For 1 dose, Additional Imaging Orders Linked Groups Order Group 1: potassium chloride (K-TAB,KLOR-CON) CR tablet 40 mEqJump to med 40 mEq, oral, As needed, potassium supplementation, Starting on [place] 12/22/23 at 1722, Progress to oral potassium [...] oral, As needed, potassium supplementation, Starting on [place] 12/22/23 at 1722, Progress to oral potassium [...] section and content) DATE CREATED AUTHOR 10/27/2023 [facility] DATE CREATED AUTHOR AUTHOR'S ORGANIZ ATION 01/02/2024 [facility] DATE CREATED AUTHOR AUTHOR'S ORGANIZ ATION 03/08/2024 [facility] FOR RECORDS PERTAINING TO PATIENTS WHO [...] BE BASED ON THE PRIMARY CLINICAL RECORDS. [employer] [facility]. provides no warranty or guarantee of the accuracy or completeness of information in this document.
--- NOTE | 2024-04-03 05:43 | ED.GENADUL1 ---
HPI HPI - General Adult General Chief complaint: Shortness of Breath/Dyspnea Stated complaint: HBP Time Seen by Provider: 04/03/24 05:33 Source: patient Mode of arrival: ambulance History of Present Illness HPI narrative: patient has past history of CKD. past colon CA. has colostomy in place. Bed sores. Residing at [place] as she has not been able to walk. States she is now learning to walk with a walker. Transferred to the ED this AM for hypotension. Complains of a cough. Ex smoker. Denies chest or abdominal pain. No fever. Past history of anemia. has required transfusion. Related Data Home Medications ?Medication ?Instructions ?Recorded ?Confirmed acetaminophen 500 mg capsule 1,000 mg PO Q6H PRN fever or pain 02/02/24 04/03/24 ascorbic acid (vitamin C) 500 mg 500 mg PO BID 02/02/24 04/03/24 chewable tablet (Acerola C) atorvastatin 40 mg tablet 40 mg PO .QHS 02/02/24 04/03/24 bumetanide 2 mg tablet 2 mg PO DAILY 02/02/24 04/03/24 ergocalciferol (vitamin D2) 1,250 50,000 unit PO QWEEK 02/02/24 04/03/24 mcg (50,000 unit) capsule ferrous sulfate 325 mg (65 mg 325 mg PO BID 02/02/24 04/03/24 iron) tablet (FeroSul) insulin aspart U-100 100 unit/mL 4 - 14 sliding scale dose subcut 02/02/24 04/03/24 (3 mL) subcutaneous pen (Novolog ACHS FlexPen U-100 Insulin aspart) insulin glargine 100 unit/mL (3 10 unit subcut BID 02/02/24 03/17/24 mL) subcutaneous pen metoprolol tartrate 100 mg tablet 100 mg PO BID 02/02/24 04/03/24 (Lopressor) midodrine 5 mg tablet 5 mg PO TIDWM 02/02/24 04/03/24 multivitamin (Daily Multi-Vitamin 1 tab PO DAILY 02/02/24 04/03/24 tablet) ondansetron HCl 4 mg tablet 4 mg PO Q6H PRN nausea and vomiting 02/02/24 04/03/24 pantoprazole 20 mg tablet,delayed 20 mg PO DAILY 02/02/24 04/03/24 release potassium chloride 20 mEq oral 20 meq PO DAILY 02/02/24 04/03/24 packet (Klor-Con) sertraline 50 mg tablet (Zoloft) 50 mg PO DAILY 02/02/24 04/03/24 tamsulosin 0.4 mg capsule (Flomax) 0.4 mg PO DAILY 02/02/24 04/03/24 zinc sulfate 50 mg zinc (220 mg) 50 mg PO DAILY 02/02/24 04/03/24 capsule magnesium oxide 800 mg PO TID 02/04/24 04/03/24 polyethylene glycol 3350 17 gram 17 g PO DAILY PRN constipation 02/04/24 04/03/24 oral powder packet (Miralax) Previous Rx's ?Medication ?Instructions ?Recorded diltiazem HCl 240 mg 240 mg PO QD 30 days #30 caps 02/26/24 capsule,extended release 24 hr levofloxacin 750 mg tablet 750 mg PO Q48H 6 days #3 tabs 03/18/24 oxycodone 5 mg tablet 5 mg PO Q6H PRN pain 1 day #4 tabs 03/18/24 Allergies Allergy/AdvReac Type Severity Reaction Status Date / Time oats AdvReac Unknown Verified 02/02/24 16:53 artificial sweetners AdvReac Severe Migraine Uncoded 02/24/24 20:32 Opioid HPI Opioid Management Most Recent Opioid Data: Last Pain Scale 0 03/17/24 21:36 Last Pain Intensity 3 03/17/24 11:52 Last ORT Total Score 1 03/17/24 01:24 Last ORT Risk Category Low Risk 03/17/24 01:24 Review of Systems ROS Status of ROS 10 or more systems reviewed and unremarkable except as noted in history and below [facility] Medical History (Updated 04/03/24 @ 06:55 by Jonah Goss MD) Chronic kidney disease (CKD) ?N18.9 - Chronic kidney disease, unspecified (ICD-10) Atrial flutter with rapid ventricular response ?I48.92 - Unspecified atrial flutter (ICD-10) Acute on chronic blood loss anemia ?D62 - Acute posthemorrhagic anemia (ICD-10) Rectal bleed ?K62.5 - Hemorrhage of anus and rectum (ICD-10) Adenocarcinoma of rectum ?C20 - Malignant neoplasm of rectum (ICD-10) Adenocarcinoma of rectum ?C20 - Malignant neoplasm of rectum (ICD-10) GERD (gastroesophageal reflux disease) ?K21.9 - Gastro-esophageal reflux disease without esophagitis (ICD-10) CHF (congestive heart failure) ?I50.9 - Heart failure, unspecified (ICD-10) Depression ?F32.A - Depression, unspecified (ICD-10) Closed head injury ?S09.90XA - Unspecified injury of head, initial encounter (ICD-10) Post concussion syndrome ?F07.81 - Postconcussional syndrome (ICD-10) Neck pain ?M54.2 - Cervicalgia (ICD-10) Osteomyelitis of vertebra, sacral and sacrococcygeal region ?M46.28 - Osteomyelitis of vertebra, sacral and sacrococcygeal region (ICD-10) GI hemorrhage ?K92.2 - Gastrointestinal hemorrhage, unspecified (ICD-10) Pressure ulcer, sacrum ?L89.159 - Pressure ulcer of sacral region, unspecified stage (ICD-10) Chronic a-fib ?I48.20 - Chronic atrial fibrillation, unspecified (ICD-10) CKD (chronic kidney disease) stage 3, GFR 30-59 ml/min ?N18.30 - Chronic kidney disease, stage 3 unspecified (ICD-10) DM2 (diabetes mellitus, type 2) ?E11.9 - Type 2 diabetes mellitus without complications (ICD-10) Hyperlipidemia ?E78.5 - Hyperlipidemia, unspecified (ICD-10) Essential hypertension ?I10 - Essential (primary) hypertension (ICD-10) HFrEF (heart failure with reduced ejection fraction) ?I50.20 - Unspecified systolic (congestive) heart failure (ICD-10) MDD (major depressive disorder) ?F32.9 - Major depressive disorder, single episode, unspecified (ICD-10) Muscle wasting and atrophy, not elsewhere classified, multiple sites ?M62.59 - Muscle wasting and atrophy, not elsewhere classified, multiple sites (ICD-10) Surgical History History of tonsillectomy ?Z90.89 - Acquired absence of other organs (ICD-10) Colostomy in place ?Z93.3 - Colostomy status (ICD-10) Family History Father Family history of myocardial infarction Family history of hypertension Mother Family history of CHF (congestive heart failure) Family history of cancer Family history of hypertension Grandmother Family history of diabetes mellitus Family history of hypertension Social History Within the past year, how often did you have a drink containing alcohol: never Within the past year, how often did you have six or more drinks on one occasion: never Score interpretation: A score less than 3 is consistent with normal alcohol consumption. Smoking status: Former smoker Non-prescribed substance use: denies use Previous occupational history: retired Highest level of school completed/degree received: some college, no degree Are you now , , , , never or living with a partner: In a typical week, how many times do you talk on the telephone with family, friends, or neighbors: 3 or more times per week How often do you get together with friends or relatives: 3 or more times per week How often do you attend latter-day or latter day services: 4 or more times per year Do you belong to any clubs or organizations such as latter-day groups unions, [employer] or athletic groups, or school groups: no Total score: 3 Score interpretation: A score of greater than or equal to 2 indicates the lowest level of social isolation. Little interest or pleasure in doing things: not at all Feeling down, depressed, or hopeless: not at all Feel stressed/tense/nervous/anxious/difficulty sleeping: not at all Do you think of yourself as: straight/heterosexual Gender Identity: female Exam Constitutional Vital Signs, click to edit/add: Last Vital Signs Pulse 56 L 04/03/24 06:17 Resp 16 04/03/24 06:17 BP 93/67 04/03/24 05:31 Pulse Ox 97 04/03/24 06:17 O2 Del Method Nasal Cannula 04/03/24 06:17 O2 Flow Rate 3 04/03/24 06:17 Common normals: no apparent distress, oriented x3, alert and well nourished HENMT Common normals: normocephalic and head/scalp atraumatic Eye Common normals: EOMs intact bilaterally and conjunctivae normal Respiratory Common normals: normal respiratory effort, no retractions, no use of accessory muscles and clear to auscultation bilaterally Cardio Common normals: S1 normal heart sound and S2 normal heart sound Rate: bradycardic GI Common normals: Normal to inspection, nondistended, normoactive bowel sounds present, soft to palpation and non-tender Auscultation: other (colostomy bag in place) Other: large sacral decubitus ulcer. Site looks clean. does not appear to be infected Extremity Common normals: normal to inspection and full ROM Neuro Common normals: oriented x3, CN's II-XII intact bilaterally, moves all extremities and no focal motor deficits Psych Appearance: grossly normal Course Vital Signs Vital signs: Vital Signs Pulse Rate 56 L 04/03/24 05:10 Respiratory Rate 16 04/03/24 05:10 Blood Pressure 74/50 L 04/03/24 05:10 Pulse Oximetry 100 04/03/24 05:10 Oxygen Delivery Method Nasal Cannula 04/03/24 05:10 Oxygen Delivery Flow Rate 2 04/03/24 05:10 Pulse Rate 56 L 04/03/24 06:17 Respiratory Rate 16 04/03/24 06:17 Blood Pressure 93/67 04/03/24 05:31 Pulse Oximetry 97 04/03/24 06:17 Oxygen Delivery Method Nasal Cannula 04/03/24 06:17 Oxygen Delivery Flow Rate 3 04/03/24 06:17 Medical Decision Making MDM Narrative Medical decision making narrative: patient has past history of A. Fib. she is also diabetic. Takes metoprolol and diltiazem. She was on blood thinner but this was discontinued a couple of months ago per her due to her anemia and need for blood transfusion. Presents from long term with complaint of shortness of breath, cough and hypotension. No fever or chest pain. No resp distress. Ex smoker with bronchial breath sounds. Treated with solumedrol and duoneb. Poor inspiratory chest xray limiting its use. CBC acceptable and troponin neg. Labs pending at this time including BMP, d-dimer and lactic acid. She also has large sacral decub that does not appear infected. care transferred to Dr Person at change of shift Lab Data Labs: Lab Results 04/03/24 Range/Units 05:31 WBC 9.0 (4.0-11.0) 10^3/uL RBC 3.42 L (4.20-5.40) 10^6/uL Hgb 10.1 L (12.0-16.0) g/dL Hct 32.7 L (36.0-48.0) % MCV 95.6 (81.0-99.0) fL MCH 29.5 (26.7-34.0) pg MCHC 30.9 (29.9-35.2) g/dL RDW 17.0 H (11.0-15.0) % Plt Count 83 L (150-450) 10^3/uL MPV 12.8 (9.5-13.5) fL Neut % (Auto) 87.4 H (43.0-75.0) % Lymph % (Auto) 7.3 L (20.5-60.0) % [place] % (Auto) 4.3 (1.7-12.0) % Eos % (Auto) 0.3 L (0.9-7.0) % Baso % (Auto) 0.1 L (0.2-2.0) % Neut # (Auto) 7.8 H (1.4-6.5) 10^3/uL Lymph # (Auto) 0.7 L (1.2-3.8) 10^3/uL [place] # (Auto) 0.4 (0.3-0.8) 10^3/uL Eos # (Auto) 0.0 (0.0-0.7) 10^3/uL Baso # (Auto) 0.0 (0.0-0.1) 10^3/uL Abs Immat Gran (auto) 0.05 H (0.00-0.03) 10^3/uL Imm/Tot Granulo (auto) 0.6 H (0.0-0.5) % Troponin I High Sens 18.8 (4.0-51.3) pg/mL Discharge Plan Discharge Patient Disposition: Still a Patient
--- NOTE | 2024-04-03 05:47 | XR_ITS ---
The [address] [address] Patient Name: HARRIS CASTREJON MRN: [id number] date: 1955 Sex: F Assigned Patient Location: ED.MAIN Current Patient Location: ER Accession/Order Number: [id number] Exam Date: 04/03/2024 05:51 Report Date: 04/03/2024 06:21 At the request of: PAGE BHANDARI Procedure: XR chest 1V EXAM: Chest x-ray HISTORY: . cough . COMPARISON: 03/18/2024 TECHNIQUE: Single view of the chest FINDINGS: This is an expiratory chest. Heart is slightly enlarged. There is prominence of the bronchovascular markings bilaterally particularly in the lung bases. There is slight blunting of both cost phrenic angles. EKG leads overlie the chest. XR/XR chest 1V IMPRESSION: 1. Expiratory chest. 2. Slight cardiac enlargement. 3. Prominence of the bronchovascular markings. A portion of this is due to the expiratory nature the film. An interstitial pneumonitis or less likely early failure cannot be excluded. Clinical correlation is suggested. Electronically authenticated by: SONYA MCLEAN Date: 04/03/2024 06:21
[2024-04-03 06:00] LABS: Basophils Percent Auto 0.1 % (0.2-2.0); Eosinophils Percent Auto 0.3 % (0.9-7.0); Hematocrit 32.7 % (36.0-48.0); Hemoglobin 10.1 g/dL (12.0-16.0); Immature Granulocytes Abs Auto 0.05 10^3/uL (0.00-0.03); Immature Granulocytes Pct Auto 0.6 % (0.0-0.5); Lymphocytes Absolute Auto 0.7 10^3/uL (1.2-3.8); Lymphocytes Percent Auto 7.3 % (20.5-60.0); Mean Corpuscular HGB Conc 30.9 g/dL (29.9-35.2); Mean Corpuscular Hemoglobin 29.5 pg (26.7-34.0); Mean Corpuscular Volume 95.6 fL (81.0-99.0); Mean Platelet Volume 12.8 fL (9.5-13.5); Monocytes Absolute Auto 0.4 10^3/uL (0.3-0.8); Monocytes Percent Auto 4.3 % (1.7-12.0); Neutrophils Absolute Auto 7.8 10^3/uL (1.4-6.5); Neutrophils Percent Auto 87.4 % (43.0-75.0); Platelet Count 83 10^3/uL (150-450); Red Blood Count 3.42 10^6/uL (4.20-5.40)
[2024-04-03] MEDS: 0.9 % SODIUM CHLORIDE 1,000 ML 999 ML IV (06:06)
[2024-04-03] MEDS: METHYLPREDNISOLONE SOD SUCC PF 125 MG/2 ML VIAL IVP (06:06)
[2024-04-03 06:12] LABS: Troponin I High Sensitivity 18.8 pg/mL (4.0-51.3)
[2024-04-03] MEDS: IPRATROPIUM/ALBUTEROL SULFATE 3 ML AMPUL.NEB IH (06:16)
[2024-04-03 07:00] LABS: Lactate/Lactic Acid 0.6 mmol/L (0.4-2.0)
[2024-04-03 07:03] LABS: Anion Gap 12.4; BUN Creatinine Ratio 14.6; Calcium 7.5 mg/dL (8.5-10.1); Carbon Dioxide 27.5 mmol/L (21.0-32.0); Chloride 103 mmol/L (98-107); Estimated GFR (African America 13 (>=60); Estimated GFR (Non-African Ame 10 (>=60); Potassium 4.9 mmol/L (3.5-5.1); Sodium 138 mmol/L (136-145)
[2024-04-03 07:07] LABS: Glucose 41 mg/dL (74-106)
[2024-04-03] MEDS: DEXTROSE 50 %-WATER 25 GM/50 ML SYRINGE IV (07:16)
[2024-04-03 07:17] LABS: D Dimer 3.12 mg/L FEU (<=0.59)
--- NOTE | 2024-04-03 07:21 | CT_ITS ---
The [address] [address] Patient Name: HARRIS CASTREJON MRN: [id number] date: 1955 Sex: F Assigned Patient Location: ER Current Patient Location: ER Accession/Order Number: [id number] Exam Date: 04/03/2024 07:32 Report Date: 04/03/2024 08:23 At the request of: HARRISON LOPEZ Procedure: CT chest wo con EXAMINATION: CT chest wo con HISTORY: pain , shortness breath COMPARISON: CT abdomen pelvis 02/04/2024 TECHNIQUE: Axial, Coronal, and Sagittal images were created without the administration of IV contrast material. Dose reduction techniques were achieved by using automated exposure control and/or adjustment of mA and/or kV according to patient size and/or use of iterative reconstruction technique. FINDINGS: LUNGS: Near-complete collapse of lower lobes bilaterally with patent central airways and bronchi. PLEURA: Bilateral pleural effusions, 4.8 cm in thickness on right, 2.0 cm on left. VASCULATURE: No abnormality. JODY: No mass or pathologic adenopathy. MEDIASTINUM: No mass or pathologic adenopathy. CARDIAC: Cardiomegaly. No pericardial effusion. Coronary Artery calcifications: Coronary calcifications are heavy. AORTA: No aneurysm or dissection. CHEST WALL: No mass or axillary adenopathy BONES: No bone lesion or fracture. LIMITED ABDOMEN: Free fluid within upper abdomen. Limited images of the upper abdomen. OTHER: Negative. CT/CT chest wo con IMPRESSION: 1. Large bilateral pleural effusions with near complete collapse of lower lobes bilaterally, likely due to passive atelectasis. Findings are new compared to 02/04/2024. 2. Cardiomegaly. 3. Abdominal ascites. Electronically authenticated by: REGINALD MATTHEWS Date: 04/03/2024 08:23
--- NOTE | 2024-04-03 07:26 | ECG_ITS ---
The [facility] Test Date: 2024-04-03 Pat Name: HARRIS CASTREJON Department: Room: - Gender: Female [employer] Separator: : 1955 Requested By: Order Number: [id number] Reading MD: ROMINA BRISENO Measurements Intervals [place] Rate: 53 P: -[id number] [place]: -[id number] QRS: 105 QRSD: 86 T: 247 QT: 498 QTc: 482 Interpretive Statements 1210 Atrial fibrillation Low voltage across the precordium 7100 Abnormal right axis deviation Baseline artifact 9150 abnormal ECG Electronically Signed On 04-03-2024 18:06:28 EDT by ROMINA BRISENO
[2024-04-03 07:35] LABS: Bilirubin Urine MODERATE (NEGATIVE); Blood Urine LARGE (NEGATIVE); Clarity Urine CLOUDY (CLEAR); Color Urine DK. YELLOW (YELLOW); Glucose Urine UA 100 mg/dL (NEGATIVE); Ketones Urine TRACE mg/dL (NEGATIVE); Leukocyte Esterase Urine MODERATE (NEGATIVE); Nitrite Urine NEGATIVE (NEGATIVE); Protein Urine >=300 mg/dL (NEG/TRACE); Specific Gravity Urine >=1.030 (1.005-1.025); pH Urine 5.5 (5.0-9.0)
[2024-04-03 07:45] LABS: Urine Microscopic Indicated YES
[2024-04-03 07:46] LABS: Bacteria Urine MODERATE #/HPF (NONE SEEN); WBC Urine >100 #/HPF (NONE SEEN)
[2024-04-03 07:47] LABS: Squamous Epithelial Cell Urine MODERATE #/LPF (NONE/RARE)
[2024-04-03 07:48] LABS: Cast Seen? NONE SEEN #/LPF (NONE SEEN); Crystals Seen? None Seen #/HPF (None Seen)
[2024-04-03 07:50] LABS: Mucus Urine TRACE (NONE SEEN)
[2024-04-03 07:51] LABS: Transitional Epi Cells Urine RARE #/LPF (NONE SEEN); Urine Culture Indicated YES
[2024-04-03 08:07] LABS: Glucometer 105 mg/dL (74-106)
[2024-04-03 08:51] LABS: Glucometer 93 mg/dL (74-106)
[2024-04-03] MEDS: LEVOFLOXACIN IN DEXTROSE 5 % 500 MG/100 ML PIGGYBACK 100 MG IV (09:45)
== END 2024-04-03 11:45 | disposition short-term general hospital (02) ==
PROVIDERS: Internal Medicine; Emergency Provider Emergency Medicine Emergency Medical Services
DX: A41.9 Sepsis, unspecified organism (principal); N17.9 Acute kidney failure, unspecified; I50.9 Heart failure, unspecified; J96.20 Acute and chronic respiratory failure, unspecified whether with hypoxia or hypercapnia; N18.9 Chronic kidney disease, unspecified; E11.22 Type 2 diabetes mellitus with diabetic chronic kidney disease; I48.91 Unspecified atrial fibrillation; L89.159 Pressure ulcer of sacral region, unspecified stage; Z85.038 Personal history of other malignant neoplasm of large intestine; Z87.891 Personal history of nicotine dependence; Z93.3 Colostomy status; Z87.440 Personal history of urinary (tract) infections
CPT/HCPCS: 36415; 71045; 71250; 80048; 81001; 83605; 83880; 84484; 85025; 85378; 87086; 87150; 87186; 93005; 94640; 96361; 96365; 96375; 99285; J2919